=== PATIENT | female | born 1940 | race Caucasian/White ===

== ENCOUNTER 2018-12-27 09:24 | Emergency (ER) | payer MEDICARE, BC, SELFPAY ==
[2018-08-31 10:01] VITALS: BMI 33.4
[2018-12-27] VITALS (12 sets, daily range): BP systolic 134–150; BP diastolic 62–83; PULSE 76–91; RESP 16–19; TEMP 36.5; O2SAT 93–99; BMI 32.6
--- NOTE | 2018-12-27 09:39 | EKG12_ITS ---
Test Reason : NEURO Blood Pressure : / mmHG Vent. Rate : 091 BPM Atrial Rate : 087 BPM P-R Int : 000 ms QRS Dur : 170 ms QT Int : 460 ms P-R-T Axes : 000 270 082 degrees QTc Int : 565 ms Ventricular-paced rhythm Abnormal ECG Confirmed by LANEY MORRISON, ELIZABET ([id number]), marketing editor OBDULIA GARCIA ([id number]) on 12/29/2018 12:06:13 PM Referred By: VITALY Confirmed By:ELIZABET DAVISON MD
--- NOTE | 2018-12-27 09:39 | CT_ITS ---
STUDY: CT BRAIN WITHOUT CONTRAST REASON FOR EXAM: Female, 78 years old. Left-sided numbness and pain for 4 days. Hypertension. RADIATION DOSAGE (If Supplied By Facility): CTDIvol = ( 44.99 ) mGy, DLP = ( 796.11 ) mGycm TECHNIQUE: Transaxial CT imaging of the brain was performed without administration of intravenous contrast material. Individualized dose optimization techniques were used for this CT. COMPARISON: No relevant priors. FINDINGS: Normal soft tissue structures. Normal calvarium. There is mild cerebral atrophy with widening of the extra-axial spaces and ventricular dilatation. There are areas of decreased attenuation within the white matter tracts of the supratentorial brain, consistent with microvascular disease changes. Normal basal ganglia and thalami. Normal brainstem. Normal cerebellum. There is no intracranial hemorrhage. There are no findings of an acute ischemic infarction. Atherosclerotic calcification of the vertebral arteries and cavernous portions of the internal carotid arteries bilaterally. Mucosal thickening at the base of the right maxillary sinus. CT/Brain/Head without Contrast IMPRESSION: Chronic involutional changes of the brain. Electronically Signed: Bello Lozoya, at 10:40 EDT , Service support ,
--- NOTE | 2018-12-27 09:41 | RAD_ITS ---
STUDY: X-RAY CHEST REASON FOR EXAM: Female, 78 years old. Numbness. TECHNIQUE: Single AP portable view of the chest. COMPARISON: Comparison is made with prior study dated March 27, 2016. FINDINGS: The lungs are clear and expanded. There is no demonstrated pleural abnormality. There is borderline cardiomegaly. A left-sided dual-chamber pacemaker is seen. Normal mediastinum and radha. Normal visualized pulmonary arteries. There is atherosclerotic calcification of the aortic arch with tortuosity. Normal visualized thoracic spine. Findings suggestive of a calcific tendinitis of the left shoulder. There is no demonstrated abnormality of the visualized soft tissue structures of the upper abdomen. RAD/Chest 1 View IMPRESSION: Borderline cardiomegaly. The lungs are clear. Electronically Signed: Bello Lozoya, at 10:20 EDT , Service support ,
[2018-12-27 10:06] LABS: Absolute Neutrophil Count 3.9 X10^3/uL (2.0-7.7); Basophil# 0.03 X10^3/uL; Basophil% 0.5 % (0-1); Eosinophil# 0.14 X10^3/uL; Eosinophils% 2.4 % (0-5); Hematocrit 40.2 % (37-47); Hemoglobin 13.7 g/dl (12.0-15.0); Lymphocyte % 23.9 % (19-41); Mean Corp Hgb Conc 34.1 g/gl (32-36); Mean Corpuscular Hgb 31.4 pg (27.0-32.0); Mean Corpuscular Volume 92.2 fL (81-99); Mean Platelet Vol. 10.3 fl (6.2-12.0); Monocyte% 6.8 % (0-10); Neutrophil # 3.89 X10^3/uL (2.7-7.7); Neutrophil % 66.2 % (47-70); Platelet Count 253 K/mm3 (150-450); RBC Distribution Width CV 13.3 % (11.6-14.6); RBC Distribution Width SD 44.7 fl (35.1-43.9); Red Blood Count 4.36 M/mm3 (4.2-5.4); White Blood Count 5.9 K/mm3 (4.4-11.0)
[2018-12-27 10:07] LABS: POSITIVE COUNT NO; POSITIVE DIFFERENTIAL NO; POSITIVE MORPHOLOGY NO
[2018-12-27 10:16] LABS: Partial Thromboplast Time 54.5 Seconds (24.1-36.2)
[2018-12-27 10:20] LABS: Bedside Glucose 213 mg/dL (70-110)
[2018-12-27 10:22] LABS: Anion Gap 10 (5-15); BUN 18 mg/dL (7-18); BUN/Creat Ratio 13.6 RATIO (10-20); Calcium,Total 9.3 mg/dL (8.5-10.1); Chloride 104 mmol/L (98-107); Creatinine, Serum 1.32 mg/dL (0.55-1.02); EST Glomerular Filtration Rate 41 mL/min (>60); Est Glom Filt Rate - Afr Amer 50 mL/min (>60); Estimated Creatinine Clearance 34.86 ml/min; Glucose 211 mg/dL (74-106); Potassium 3.4 mmol/L (3.5-5.1); Sodium Level 139 mmol/L (136-145)
--- NOTE | 2018-12-27 11:28 | CT_ITS ---
STUDY: CT BRAIN WITH AND WITHOUT CONTRAST REASON FOR EXAM: Female, 78 years old. Numbness to the left side of the cervical region. RADIATION DOSAGE (If Supplied By Facility): CTDIvol = ( 32.81 ) mGy, DLP = ( 756.18 ) mGycm TECHNIQUE: Transaxial CT imaging of the brain was performed pre and post contrast administration. The examination was performed with intravenous administration of 100 IV Isovue 370. Individualized dose optimization techniques were used for this CT. COMPARISON: Comparison is made with prior unenhanced scan done earlier today. FINDINGS: Normal soft tissue structures. Normal calvarium. There is a 2.4 cm x 1.4 cm x 1.7 cm mildly enhancing soft tissue density along the anterior aspect of the left temporal frontal lobe. This abuts the posterior aspect of the orbital region of the left temporal bone. This may represent a meningioma. Mild degree of mass effect. There is mild cerebral atrophy with widening of the extra-axial spaces and ventricular dilatation. There are areas of decreased attenuation within the white matter tracts of the supratentorial brain, consistent with microvascular disease changes. Normal basal ganglia and thalami. Normal brainstem. Normal cerebellum. There is no intracranial hemorrhage. There are no findings of an acute ischemic infarction. Normal visualized paranasal sinuses. CT/CTA Head W/WO Contrast IMPRESSION: 2.4 cm x 1.4 cm x 1.7 cm mild enhancing soft tissue density along the anterior aspect of the left frontal temporal lobe as described. A meningioma should be ruled out. Electronically Signed: Bello Lozoya, at 12:46 EDT , Service support ,
--- NOTE | 2018-12-27 11:28 | CT_ITS ---
STUDY: CTA NECK WITH CONTRAST REASON FOR EXAM: Female, 78 years old. Left-sided cervical and shoulder pain. RADIATION DOSAGE (If Supplied By Facility): CTDIvol = ( 32.81 ) mGy, DLP = ( 756.18 ) mGycm TECHNIQUE: CT angiography with multi-detector data acquisition was performed from the aortic arch to the skull base following intravenous administration of 100 IV Isovue 370. MIP images were reconstructed from the axial data set. Post-processing of the angiographic images was performed, with multiplanar reformation and 3D reconstruction. Individualized dose optimization techniques were used for this CT. COMPARISON: None. FINDINGS: AORTIC ARCH: There is atherosclerotic calcific plaque formation of the aortic arch and great vessels arising from the aortic arch, without a hemodynamically significant stenosis. There is a normal origin of the brachiocephalic, left common carotid, and left subclavian arteries. RIGHT CAROTID ARTERIES: Normal right common carotid artery (CCA). Normal right common carotid bulb. There is moderate atherosclerotic plaque formation of the origin of the right internal carotid artery with an estimated stenosis of 50-69% stenosis. Normal visualized cervical portion of the right internal carotid artery. Normal origin of the right external carotid artery (ECA). LEFT CAROTID ARTERIES: Normal left common carotid artery (CCA). Normal left common carotid bulb. There is mild atherosclerotic plaque formation of the origin of the left internal carotid artery with less than 50% cross sectional diameter stenosis. Normal visualized cervical portion of the left internal carotid artery. Normal origin of the left external carotid artery (ECA). VERTEBRAL ARTERIES: Normal bilateral vertebral arteries. CT/CTA Neck W/WO Contrast IMPRESSION: Calcified plaques at the origin of the right internal carotid artery causing approximately 50-69% stenosis. Electronically Signed: Bello Lozoya, at 12:41 EDT , Service support ,
--- NOTE | 2018-12-27 12:18 | ED.VISSUMM ---
- ER Visit Summary Date of Service: 12/27/18 Chief Complaint: Numbness History of Present Illness: The patient is a 78 F with numbness that started 3 days ago. The numbness is in her left face, left neck, and left shoulder. It feels like a shot of Novocain. Patient denies any weakness. Denies any vision changes or facial droop. Denies any speech changes. Denies any history of this in the past. She was concerned for a nerve problem. She called her primary care's office and was referred to the ED. Patient has a history of atrial fibrillation and takes rivaroxaban. She also has a history of coronary disease, hypertension, hyperlipidemia. Physical Examination: Afebrile and vital signs are unremarkable. Head and neck normal to inspection. She does have decreased sensation over her left cheek, left neck, and left shoulder. Heart regular. Lungs clear. Extremities otherwise unremarkable. Good strength and sensation. No facial droop noted. Eyes normal. NIH stroke scale is 1. Test Results: EKG showed a paced rhythm at a rate of 91. Chest x-ray showed borderline cardiomegaly. Noncontrast CT showed chronic changes. CBC unremarkable. BMP, coags, troponin unremarkable. Emergency Department Course and Treatment: Patient had focal sensory loss in the C3 distribution. No motor symptoms or other associated symptoms. Work-up as above was unremarkable. Patient was discussed with Dr. Du. He advised CTA head and neck. If negative, the patient may be discharged for outpatient follow-up. CTA showed mild left carotid stenosis and moderate right-sided carotid stenosis. She also had a 2.4 cm left side frontal temporal lesion concerning for meningioma. This was discussed with Dr. Welsh. He said this would not cause her symptoms and is unlikely to be operative. He advised that the patient can follow-up with him if she wants. Patient declined. Patient was advised that she does have carotid stenosis and is at risk for stroke. She will return for any new or worsening issues. Otherwise follow-up with primary care. Treatment Plan: As above Disposition: Discharge Impression: 1. Left face numbness 2. Carotid stenosis bilaterally This note was generated with InStaffation software. It may contain incorrect words, spelling, and punctuation that were not noted in review of the chart prior to signing ED Disposition - Plan for ED Patient: Referrals: Matt Rocha MD [Primary Care Provider] -
--- NOTE | 2018-12-27 12:22 | ED.DCSUM_ITS ---
- ER Visit Summary Date of Service: 12/27/18 Chief Complaint: Numbness History of Present Illness: The patient is a 78 F with numbness that started 3 days ago. The numbness is in her left face, left neck, and left shoulder. It feels like a shot of Novocain. Patient denies any weakness. Denies any visi on changes or facial droop. Denies any speech changes. Denies any history of this in the past. She was concerned for a nerve problem. She called her primary care's office and was referred to the ED. Patient has a history of atrial fibrillation and takes rivaroxaban. She also has a history of coronary disease, hypertension, hyperlipidemia. Physical Examination: Afebrile and vital signs are unremarkable. Head and neck normal to inspection. She does have decreased sensation over her left cheek, left neck, and left shoulder. Heart regular. Lungs clear. Extremities otherwise unremarkable. Good strength and sensation. No facial droop noted. Eyes normal. NIH stroke scale is 1. Test Results: EKG showed a paced rhythm at a rate of 91. Chest x-ray showed borderline cardiomegaly. Noncontrast CT showed chronic changes. CBC unremarkable. BMP, coags, troponin unremarkable. Emergency Department Course and Treatment: Patient had focal sensory loss in the C3 distribution. No motor symptoms or other associated symptoms. Work-up as above was unremarkable. Patient was discussed with Dr. Du. He advised CTA head and neck. If negative, the patient may be discharged for outpatient follow-up. CTA showed mild left carotid stenosis and moderate right-sided carotid stenosis. She also had a 2.4 cm left side frontal temporal lesion concerning for meningioma. This was discussed with Dr. Welsh. He said this would not cause her symptoms and is unlikely to be operative. He advised that the patient can follow-up with him if she wants. Patient declined. Patient was advised that she does have carotid stenosis and is at risk for stroke. She will return for any new or worsening issues. Otherwise follow-up with primary care. Treatment Plan: As above Disposition: Discharge Impression: 1. Left face numbness 2. Carotid stenosis bilaterally This note was generated with Wako[employer] software. It may contain incorrect words, spelling, and punctuation that were not noted in review of the chart prior to signing ED Disposition - Plan for ED Patient: Referrals: Matt Rocha MD [Primary Care Provider] -
--- NOTE | 2018-12-27 14:00 | ED.DEP ---
ED Disposition - Plan for ED Patient: Instructions: ED Paraesthesias Referrals: Matt Rocha MD [Primary Care Provider] -
== END 2018-12-27 14:12 | disposition home or self-care (01) ==
LOC: ED 10:14
PROVIDERS: Emergency Provider Emergency Medicine; Family Provider Family Medicine; PCP Family Medicine
DX: R20.0 Anesthesia of skin (principal); I65.23 Occlusion and stenosis of bilateral carotid arteries; R11.0 Nausea; R29.701 NIHSS score 1; I25.10 Atherosclerotic heart disease of native coronary artery without angina pectoris; I10 Essential (primary) hypertension; E78.00 Pure hypercholesterolemia, unspecified; I27.20 Pulmonary hypertension, unspecified; I48.91 Unspecified atrial fibrillation; Z79.899 Other long term (current) drug therapy; Z95.5 Presence of coronary angioplasty implant and graft
CPT/HCPCS: 70450; 70496; 70498; 71045; 80048; 82962; 84484; 85025; 85610; 85730; 93005; 99284; Q9967; A4216

== ENCOUNTER 2019-01-18 12:48 | Emergency (ER) | payer MEDICARE, BC, SELFPAY ==
[2018-12-27 09:25] VITALS: BMI 32.6
[2019-01-18 12:49] VITALS: BP 129/61; PULSE 91; RESP 17; TEMP 36.4; O2SAT 97; BMI 31.9
--- NOTE | 2019-01-18 12:52 | RAD_ITS ---
STUDY: X-RAY - THORACIC SPINE REASON FOR EXAM: Female, 78 years old. Back pain following a fall. TECHNIQUE: 3 view(s) of the thoracic spine were obtained. COMPARISON: None. FINDINGS: Normal kyphosis of the thoracic spine. There is no substantial scoliosis. Normal thoracic vertebrae and endplates. There is multilevel disc space narrowing of the thoracic spine. The soft tissue structures are unremarkable. RAD/Thoracic Spine 3 Views IMPRESSION: Multilevel disc space narrowing. No compression fracture is seen. Electronically Signed: Bello Lozoya, at 14:00 EDT , Service support ,
--- NOTE | 2019-01-18 13:05 | RAD_ITS ---
STUDY: X-RAY - LUMBAR SPINE REASON FOR EXAM: Female, 78 years old. Low back pain following a fall. TECHNIQUE: 3 view(s) of the lumbar spine were obtained. COMPARISON: None FINDINGS: Normal lumbar lordosis. There is no substantial scoliosis. Grade 1 anterior listhesis of L4 on L5 without spondylolysis. Facet joint osteoarthritis. Mild loss of height of the superior endplate of the T12 vertebrae. Mild degree of disc space narrowing at the L4-L5 and L5-S1 levels. There is atherosclerotic calcification of the abdominal aorta without a demonstrated aneurysm. RAD/Lumbar Spine 2 or 3 Views IMPRESSION: Degenerative changes of the spine, as detailed above. Loss of height of the superior endplate of the T12 vertebrae. Grade 1 anterior listhesis of L4 on L5. Electronically Signed: Bello Lozoya, at 14:01 EDT , Service support ,
[2019-01-18] MEDS: oxyCODONE 5 MG Tablet PO (14:56)
--- NOTE | 2019-01-18 15:01 | CT_ITS ---
STUDY: CT ABDOMEN AND PELVIS WITHOUT CONTRAST REASON FOR EXAM: Female, 78 years old. Mid back pain following a recent fall. RADIATION DOSAGE (If Supplied By Facility): CTDIvol = ( 14.28 ) mGy, DLP = ( 732.60 ) mGycm TECHNIQUE: Transaxial images were obtained from the dome of the diaphragm to the symphysis pubis without oral contrast, and without intravenous contrast. Sagittal and coronal images were reconstructed. Individualized dose optimization techniques were used for this CT. COMPARISON: Comparison is made with prior study dated October 20, 2015. FINDINGS: The visualized lung bases are unremarkable. A dual-chamber pacemaker is seen. Coronary artery calcification. Mild degree of bibasilar scarring. Normal liver. Normal gallbladder and extrahepatic biliary system. Normal spleen. Normal pancreas. Normal bilateral adrenal glands. Normal right kidney. Normal left kidney. Normal visualized stomach. Normal small intestine. There are multiple colonic diverticula consistent with diverticulosis. The patient is status post appendectomy. There is diffuse atherosclerotic calcification of the abdominal aorta and its major visceral branches, without a demonstrated aneurysm. Normal inferior vena cava. There is borderline retroperitoneal lymphadenopathy with enlarged nodes no greater than 10mm in the short axis diameter. Normal urinary bladder. Small bilateral inguinal lymph nodes. There is absence of the uterus consistent with a prior hysterectomy. Normal abdominal wall. Grade 1 anterior listhesis of L4 on L5 without spondylolysis. Minimal loss of right of the superior endplate of the T12 vertebrae. This is new as compared to prior study. Stable diffuse posterior disc bulge at the L4-L5 level. CT/Abdomen/Pelvis without Cont IMPRESSION: Stable examination except for loss of height of the T12 vertebrae. Electronically Signed: Bello Lozoya, at 15:37 EDT , Service support ,
[2019-01-18] MEDS: diazePAM 2 MG Tablet PO (15:05)
--- NOTE | 2019-01-18 15:35 | ED.VISSUMM ---
- ER Visit Summary Date of Service: 01/18/19 Chief Complaint: Back pain History of Present Illness: The patient is a 78 F who is on blood thinners. She fell on some steps yesterday. Resulted in hematoma of the left posterior lateral thigh. She also notes bilateral forearm abrasions and contusions. She states it really brought her in today with severe pain in her low back. She states it feels like muscle spasms. Is worsened by movement. No syncope. No head injury. No chest or abdominal symptoms. No lower extremity weakness or paresthesias. No bowel or bladder dysfunction. Physical Examination: Afebrile vital signs stable Gen: Well-nourished well-developed Head: Normocephalic atraumatic Eyes: Perrl EOMI ENT: TMs clear no rhinorrhea moist mucous membranes Neck: Supple no lymphadenopathy no JVD nontender CVS: Regular rate rhythm no murmurs normal S1-S2 Respiratory: No distress clear to auscultation bilaterally chest nontender Abdomen: Soft nontender nondistended normal bowel sounds no masses Back: Paraspinal musculature tenderness the lower lumbar spine. Extremity: There is a hematoma to the left anterior lateral thigh. There are bilateral forearm abrasions and contusions. Skin: Normal color no rash Neuro: alert orientated ?3 CN II-XII intact normal strength sensation reflexes Palgic gait with cane Psych: Normal affect normal mood Test Results: Thoracic and lumbar spine films were obtained through nursing protocol in triage. This demonstrated L4-L5 spondylolisthesis. There is also some mild loss of height of the superior endplate of T12. CT of the abdomen pelvis was obtained which does not demonstrate any additional findings or evidence of retroperitoneal hematoma Emergency Department Course and Treatment: She received oxycodone and Valium. I will write for the same at home. I will asked that she follow-up with her doctor the next few days. Patient was advised on this creasing the medicine or stopping it if she becomes confused, constipated, or shows evidence of respiratory depression. Impression: 1. Lumbar muscle strain 2. Superior endplate compression fracture age-indeterminate 3. Left thigh hematoma This note was generated with [employer] dictation software. It may contain incorrect words, spelling, and punctuation that were not noted in review of the chart prior to signing ED Disposition - Plan for ED Patient: Disposition: Home or Assisted Living Instructions: Back Sprain/Strain Prescriptions: Oxycodone [Oxyir] 5 mg PO Q6H PRN PRN 3 Days #12 tab PRN Reason: Pain Prescription Printed Diazepam [Valium] 5 mg PO Q8 PRN 3 Days #10 tab PRN Reason: Muscle Spasm Prescription Printed Referrals: Matt Rocha MD [Primary Care Provider] - 3-5 Days
== END 2019-01-18 16:04 | disposition home or self-care (01) ==
PROVIDERS: Emergency Provider Emergency Medicine; Family Provider Family Medicine; PCP Family Medicine
DX: S39.012A Strain of muscle, fascia and tendon of lower back, initial encounter (principal); S70.12XA Contusion of left thigh, initial encounter; S50.812A Abrasion of left forearm, initial encounter; S50.811A Abrasion of right forearm, initial encounter; S50.12XA Contusion of left forearm, initial encounter; S50.11XA Contusion of right forearm, initial encounter; M43.16 Spondylolisthesis, lumbar region; E66.9 Obesity, unspecified; W10.9XXA Fall (on) (from) unspecified stairs and steps, initial encounter; Y93.9 Activity, unspecified; Y92.9 Unspecified place or not applicable; I25.10 Atherosclerotic heart disease of native coronary artery without angina pectoris; K21.9 Gastro-esophageal reflux disease without esophagitis; I10 Essential (primary) hypertension; E78.00 Pure hypercholesterolemia, unspecified; I48.91 Unspecified atrial fibrillation; F41.9 Anxiety disorder, unspecified; Z95.0 Presence of cardiac pacemaker; Z79.01 Long term (current) use of anticoagulants; Z79.899 Other long term (current) drug therapy; Z87.891 Personal history of nicotine dependence
CPT/HCPCS: 72072; 72100; 74176; 99283

== ENCOUNTER 2019-01-22 08:59 | Emergency (ER) | payer MEDICARE, BC, SELFPAY ==
[2019-01-22 09:00] VITALS: BP 139/61; PULSE 90; RESP 18; TEMP 36.6; O2SAT 97; BMI 31.9
--- NOTE | 2019-01-22 09:19 | ED.VIS.GEN ---
History of Present Illness Chief Complaint: Back Informant: Patient Current Severity: Moderate Maximum Severity: Moderate Narrative: Patient sustained a mechanical fall, she was seen in the emergency department, she was given analgesia but these ran out. She was supposed to have a appointment today, but apparently she got a phone call and was told that she would not be prescribed analgesia so she came to the emergency department. No chest pain shortness of breath fever or chills no new injury. Past Medical History - Allergies and Home Meds Allergies/Adverse Reactions: Allergies poison fany extract [Poison Fany Extract] Allergy (Verified 01/22/19 09:02) Rash Sulfa (Sulfonamide Antibiotics) Allergy (Verified 01/22/19 09:02) Hives Primary Care Physician: Matt Rocha MD [Primary Care Provider] - Past Medical History: - - Reviewed, significant for recent fall otherwise unremarkable. Surgical History: angioplasty Smoking Status: Former smoker Review of Systems Cardiovascular: Denies: Chest pain Respiratory: Denies: Dyspnea Gastrointestinal: Denies: Abdominal pain Musculoskeletal: Reports: Myalgias, Back pain Skin: Reports: Abrasions, Wounds Neurological: Denies: Headache, Weakness Hematologic: Denies: Easy bruising Physical Exam Vital Signs/Narrative: Vital Signs Temp Pulse Resp BP Pulse Ox 01/22/19 09:00 97.9 F 90 18 139/61 H 97 General: - - She appears in some pain Head: Normocephalic, Atraumatic ENT: Moist mucous membranes Cardiovascular: Regular rate Respiratory: No distress Abdomen: Soft, Nontender Back: - - Patient has mostly paraspinal tenderness, mostly on the left side, she has no spinal tenderness. Extremities: - - There is significant left lower extremity contusion and hematoma on her thigh Neurological: Normal Strength, Normal Sensation Diagnostic/Tx/Re-eval - Medical Decision Making Patient has a normal neurological exam, she obviously has pain and contusions I will give her analgesia and muscle relaxants for home. ED Disposition - Plan for ED Patient: Disposition: Home or Assisted Living Instructions: Back Sprain/Strain, BACK PAIN (Acute or Chronic) Prescriptions: Oxycodone HCl/Acetaminophen [Percocet 5/325] 1 tab PO Q6H PRN PRN 3 Days #12 tab PRN Reason: Pain Prescription Printed Diazepam [Valium] 10 mg PO Q8 PRN #10 tab PRN Reason: Muscle Spasm Prescription Printed Referrals: Matt Rocha MD [Primary Care Provider] -
[2019-01-22] MEDS: oxyCODONE 5 MG Tablet PO (09:36)
[2019-01-22] MEDS: diazePAM 5 MG Tablet 10 MG PO (09:36)
[2019-01-22 09:38] VITALS: RESP 18
== END 2019-01-22 10:16 | disposition home or self-care (01) ==
LOC: ED 09:56
PROVIDERS: Emergency Provider Emergency Medicine; Family Provider Family Medicine; PCP Family Medicine
DX: M54.9 Dorsalgia, unspecified (principal); S80.12XA Contusion of left lower leg, initial encounter; S70.12XA Contusion of left thigh, initial encounter; W19.XXXA Unspecified fall, initial encounter; Y93.9 Activity, unspecified; Y92.9 Unspecified place or not applicable; Z87.891 Personal history of nicotine dependence
CPT/HCPCS: 99283

== ENCOUNTER 2019-01-24 13:05 | Emergency (ER) | payer MEDICARE, BC, SELFPAY ==
[2019-01-24 13:06] VITALS: BP 144/76; PULSE 91; RESP 24; TEMP 35.8; O2SAT 95; BMI 31.9
--- NOTE | 2019-01-24 13:35 | ED.VIS.GEN ---
History of Present Illness Chief Complaint: Back Informant: Patient Current Severity: Moderate Maximum Severity: Moderate Narrative: Patient sustained a mechanical fall, she was seen in the emergency department, she was given analgesia but these ran out. After that she was seen by me a few days ago, she ran out of medications again. She does not have an appointment until Thursday. Her pain is left-sided paraspinal back pain. It is moderate she has muscle spasm with this. No chest pain shortness of breath fever or chills no new injury. Past Medical History - Allergies and Home Meds Allergies/Adverse Reactions: Allergies poison fany extract [Poison Fany Extract] Allergy (Verified 01/24/19 13:06) Rash Sulfa (Sulfonamide Antibiotics) Allergy (Verified 01/24/19 13:06) Hives Primary Care Physician: Matt Rocha MD [Primary Care Provider] - Prior records reviewed: No Past Medical History: - - Reviewed and unremarkable Surgical History: angioplasty Lives: Spouse/ Significant Other Smoking Status: Former smoker Review of Systems All systems negative except as indicated General: Denies: Fever Cardiovascular: Denies: Chest pain Respiratory: Denies: Dyspnea Gastrointestinal: Denies: Abdominal pain, Nausea Genitourinary: Denies: Dysuria, Hematuria Musculoskeletal: Reports: Myalgias, Back pain Skin: Denies: Abscess, Abrasions Neurological: Denies: Weakness Hematologic: Denies: Easy bruising Physical Exam Vital Signs/Narrative: Vital Signs Temp Pulse Resp BP Pulse Ox 01/24/19 13:06 96.5 F L 91 24 H 144/76 H 95 General: Well nourished, Well developed Eyes: Perrl, EOMI ENT: Moist mucous membranes Cardiovascular: Regular rate, Regular rhythm Respiratory: No distress Abdomen: Soft, Nontender Back: - - Mostly paraspinal tenderness some lumbar tenderness. She has normal dorsiflexion of both feet and great toes, normal plantarflexion. She has 1+ equal bilateral patellar reflexes. Extremities: No edema Skin: Normal color Neurological: Alert, Oriented x3, Normal Strength Psychological: Normal affect Diagnostic/Tx/Re-eval - Medical Decision Making Patient does not want any rehab, admission to the hospital she just wants analgesia, she told me what ever I gave her last time worked just fine. She denies any urinary symptoms, any red flags. She wants to be discharged home and follow-up on Thursday. Discharge stable condition ED Disposition - Plan for ED Patient: Disposition: Home or Assisted Living Diagnosis: Back pain Instructions: Back Sprain/Strain Prescriptions: Oxycodone HCl/Acetaminophen [Percocet 10-325 mg Tablet] 1 tab PO Q6H PRN PRN 3 Days #9 tab PRN Reason: Pain Prescription Printed Diazepam [Valium] 5 mg PO BID 3 Days #6 tab Prescription Printed Referrals: Matt Rocha MD [Primary Care Provider] - 2 Days
[2019-01-24] MEDS: HYDROmorphone 1 MG/ML Syringe IM (13:42)
[2019-01-24] MEDS: diazePAM 5 MG Tablet PO (13:42)
--- NOTE | 2019-01-24 13:58 | ED.RN ---
PT FAMILY REQUEST SOCIAL WORK CONSULT FOR INTRACTABLE BACK PAIN POST FALL AT HOME ONE WEEK AGO. PT HAS BEEN TO ED MULTIPLE TIMES SINCE FALL. FAMILY IS HAVING INCREASED DIFFICULTY TAKING CARE OF PT AT HOME DUE TO INCREASED DIFFICULTY OF PT AMBULATING AT HOME. TEE BOONE WAS VERBALLY CONSULTING AND INFORMED OF PT SITUATION. TEE TO SEE PT IN ED PRIOR TO DC.
--- NOTE | 2019-01-24 14:10 | CM.ED ---
Social Work Assessment Referral Date: 01/24/19 Date of Assessment: 01/24/19 Informant: NURSEMAINE Reason for Consult: D/C PLANNING-NH PLACEMENT Information obtained from: NURSE, PATIENT AND FAMILY Living Arrangements: PATIENT LIVES HOME WITH Employment/Financial: RETIRED Supports: DAUGHTER AND Social/Family Stressors: PATIENT HAD RECENT FALL AND HAS BEEN DEALING WITH PAIN EVER SINCE THE FALL. PATIENT HAS BEEN IN AND OUT OF THE ED 3 TIMES THIS MONTH. PATIENT AND FAMILY WANTING ALF PLACEMENT. Mental Health History: PATIENT ADMITS TO HX OF ANXIETY. Diagnoses: ANXIETY Medications: BUSPAR Substance Abuse History: PATIENT DENIES HX OF SUBSTANCE ABUSE. Interventions: SOCIAL SERVICE ASSESSMENT ALF PLACEMENT-SELF PAY Assessment: PATIENT IS A 78 Y/O FEMALE WHO PRESENTS TO THE ED FOR BACK PAIN. PATIENT NOT DOING WELL AT HOME AND UNABLE TO CARE FOR PATIENT. FAMILY AND PATIENT WANTING ALF PLACEMENT. DISCUSSED OPTIONS AND THAT PLACEMENT WILL BE SELF PAY. ALL VERBALIZE UNDERSTANDING. FIRST CHOICE IS [facility], SECOND IS [facility]. UPDATED NURSING AND DR. YARBROUGH ON ASSESSMENT. THIS WORKER TO ASSIST WITH PLACEMENT. PLAN: ALF. REFERRALS TO BE MADE.
--- NOTE | 2019-01-24 14:20 | CM.ED ---
SOCIAL WORK CALL TO DR. COSTELLO'S OFFICE TO OBTAIN HISTORY AND PHYSICAL. NURSE TO FAX H&P TO THIS WORKER. SHARLENE TINEO, MANNEQUIN MOUNTER, BEHAVIOR THERAPIST.
--- NOTE | 2019-01-24 14:45 | CM.ED ---
SOCIAL WORK MADE CALLS TO [facility] AND [facility]. UPDATED PATIENT AND FAMILY. PATIENT WANTING THE [facility]. REFERRAL FAXED TO THE [facility] AT THIS TIME.
--- NOTE | 2019-01-24 15:15 | CM.ED ---
SOCIAL WORK CALL FROM SHIRA AT THE [facility]. PATIENT ACCEPTED. PAS SUBMITTED. UPDATED PATIENT, FAMILY AND NURSING. FAMILY TO TRANSPORT PATIENT TO FACILITY. SHARLENE TINEO, OTR OWNER OPERATOR, CEMETERY KEEPER.
--- NOTE | 2019-01-24 15:29 | ED.RN ---
PT WAS ACCEPTED TO [facility], PT WAS D/C'D FROM ER AND TAKEN TO THE AVENUE BY DAUGHTER AND
== END 2019-01-24 15:31 | disposition home or self-care (01) ==
PROVIDERS: Emergency Provider Emergency Medicine; Family Provider Family Medicine; PCP Family Medicine
DX: M54.9 Dorsalgia, unspecified (principal); W19.XXXA Unspecified fall, initial encounter; Y93.9 Activity, unspecified; Y92.9 Unspecified place or not applicable; Z87.891 Personal history of nicotine dependence
CPT/HCPCS: 96372; 99282

== ENCOUNTER 2020-05-01 15:01 | Emergency (ER) | payer MEDICARE, BC, SELFPAY ==
[2019-11-15 11:10] VITALS: BMI 30.9
[2020-05-01 15:01] VITALS: BP 155/84; PULSE 89; RESP 16; TEMP 36.2; O2SAT 95; BMI 30.9
--- NOTE | 2020-05-01 15:53 | ED.VISSUMM ---
- ER Visit Summary Date of Service: 05/01/20 Chief Complaint: Fall History of Present Illness: The patient is a 79 F who presents with pain in her left lower chest that began after a fall 4 days ago. Patient states she tripped while she was walking in her basement and landed on her left side. Patient has been complaining of pain in her left lower ribs since the fall. Patient states her pain is sharp and is worse with movement. Patient denies any head injury or loss of consciousness. Physical Examination: Vital signs are stable. Patient is afebrile. Patient is in no acute distress. Musculoskeletal exam reveals tenderness over the left lower ribs. There is no bony crepitance or step-off. [place]uc[place] is pink and moist. Neck is supple. Trachea is midline. There is no JVD. Heart with regular rate and rhythm. Lungs are clear and equal bilaterally. There is adequate respiratory effort. Abdomen is soft. Bowel sounds are normal. There is no tenderness. There is no rebound or guarding noted. Cranial nerves II through XII are intact. There are no focal motor or sensory deficits noted. Test Results: X-rays of the left ribs were obtained. There is no acute fracture noted. These were interpreted by the radiologist and reviewed by myself. Emergency Department Course and Treatment: Patient was advised of her findings. Patient was given a dose of Alhambra here. Patient was instructed to use ice to the area. Patient was given a prescription for a short course of Alhambra. Patient was instructed to take 10-15 deep breaths every hour while awake to prevent atelectasis and pneumonia. Patient understood and was agreeable with the plan. All questions were answered. Disposition: Discharge home Impression: Left rib contusion This note was generated with [employer] dictation software. It may contain incorrect words, spelling, and punctuation that were not noted in review of the chart prior to signing ED Disposition - Plan for ED Patient: Disposition: Home or Assisted Living Diagnosis: Contusion of rib on left side Instructions: ED CONTUSION Rib Prescriptions: Hydrocodone Bitart/Apap 5-325 [Alhambra 5MG-325MG] 1 tab PO Q6H PRN PRN 3 Days #10 tab PRN Reason: Pain Prescription Printed Referrals: Matt Rocha MD [Primary Care Provider] - 5-7 Days
--- NOTE | 2020-05-01 16:00 | RAD_ITS ---
STUDY: X-RAY - UNILATERAL RIBS ( LEFT ) WITH CHEST REASON FOR EXAM: Female, 79 years old. PAIN BENEATH LEFT BREAST/LEFT RIBS ANTERIORLY RADIDIATING LATERALLY WELL. PT STATES SHE FELL ON THURSDAY AND INJURED HER LEFT RIBS. STATES IT ISN''T GETTING BETTER. TECHNIQUE - RIBS: 5 view(s) of the ribs. TECHNIQUE - CHEST: Single PA view of the chest. COMPARISON: 12/27/2018 FINDINGS - RIBS: Normal visualized ribs without a demonstrated fracture. FINDINGS - CHEST: Left subclavian dual-lead pacemaker which is unchanged. Some bibasilar discoid atelectasis. There is no demonstrated pleural abnormality. Normal size heart. Normal mediastinum and radha. Normal visualized pulmonary arteries. Normal visualized aortic arch and descending thoracic aorta. Normal visualized thoracic spine. Normal visualized ribs, clavicles, and shoulders. There is no demonstrated abnormality of the visualized soft tissue structures of the upper abdomen. RAD/Ribs Uni Min 3V w/PA Chest IMPRESSION: RIBS: Normal x-ray examination of the ribs. CHEST: Normal x-ray examination of the chest. Electronically Signed: Vishnu Coronado MD at 16:22 EDT Tel , Service support ,
[2020-05-01] MEDS: HYDROcodone Bitartrate/Apap 5/325 Tablet PO (16:40)
== END 2020-05-01 16:52 | disposition home or self-care (01) ==
LOC: ED 16:17
PROVIDERS: Emergency Provider Emergency Medicine; PCP Family Medicine
DX: S20.212A Contusion of left front wall of thorax, initial encounter (principal); W01.10XA Fall on same level from slipping, tripping and stumbling with subsequent striking against unspecified object, initial encounter; Y93.01 Activity, walking, marching and hiking; Y92.008 Other place in unspecified non-institutional (private) residence as the place of occurrence of the external cause; Y99.9 Unspecified external cause status; E66.9 Obesity, unspecified; I10 Essential (primary) hypertension; Z79.899 Other long term (current) drug therapy; Z95.0 Presence of cardiac pacemaker
CPT/HCPCS: 71101; 99283

== ENCOUNTER → 2020-05-16 15:07 | Outpatient (CLI) | payer MEDICARE, BC, SELFPAY ==
[2020-05-16 14:01] VITALS: BMI 31.7
[2020-05-16 16:11] LABS: AST(SGOT) 23 U/L (15-37); Alanine Aminotransfer ALT/SGPT 22 U/L (13-56); Albumin, Serum 3.8 g/dL (3.2-5.0); Alkaline Phosphatase 139 U/L (45-117); Bilirubin, Direct 0.12 mg/dL (0.00-0.30); Cholesterol 168 mg/dL (200); Globulin 5.2 g/dL (2.2-4.2); High Density Lipoprotein 40 mg/dL; Triglycerides 202 mg/dL; Very Low Density Lipoprotein 40 mg/dL (5-40)
== END ==
PROVIDERS: PCP Family Medicine; Referring Provider Physician Assistant Medical; Visit Provider Physician Assistant Medical
DX: I25.10 Atherosclerotic heart disease of native coronary artery without angina pectoris (principal); E78.00 Pure hypercholesterolemia, unspecified
CPT/HCPCS: 36415; 80061; 80076

== ENCOUNTER → 2022-02-13 | Outpatient (CLI) | payer MEDICARE, BC, SELFPAY ==
--- NOTE | 2022-02-13 17:45 | STRESSREP_ITS ---
Stress Test Report Pharmacologic myocardial perfusion stress test. 81-year-old lady with a history of coronary artery disease. Stress protocol: Resting EKG demonstrates normal pacemaker rhythm with a rate of 90 bpm. Left bundle branch block pattern is noted. Resting blood pressure is 140/80 mmHg. 0.4 mg of regadenoson was infused per usual protocol followed by Intravenous saline flush injection continuous EKG monitoring was performed. The maximum heart rate attained was 121 bpm which was 87% of max impacted heart rate the max imum workload was 1 metabolic equivalent. At rest there were no ST or T wave changes noted to suggest abnormal flow reserve and at peak infusion nonspecific ST changes were noted with did not meet the criteria for ischemia. The peak blood pressure was 142/80 mmHg. Myocardial perfusion protocol. 14.8 mCi of technetium 99m sestamibi was injected at rest. 0.4 mg of regadenoson was infused per usual protocol. At peak infusion 44.6 mCi of technetium 99m sestamibi was injected stress images were obtained stress and rest images were reconstructed in comparing the short axis vertical long and hor izontal long axis. Perfusion SPECT analysis: Review of the stress images demonstrate normal uptake of tracer noted in all areas of the myocardium. The resting images similarly demonstrate normal uptake of tracer noted in all areas of the myocardium. No areas of reversibility are noted suggest ischemia. Conclusion: Normal pharmacologic myocardial perfusion stress test.
== END | disposition home or self-care (01) ==
LOC: CVS 06:28
PROVIDERS: PCP Family Medicine; Referring Provider Physician Assistant Medical; Visit Provider Physician Assistant Medical
DX: I25.10 Atherosclerotic heart disease of native coronary artery without angina pectoris (principal); I44.7 Left bundle-branch block, unspecified; Z95.5 Presence of coronary angioplasty implant and graft
CPT/HCPCS: 78452; 93017; A9500; A4216; J2785

== ENCOUNTER 2022-08-15 12:36 | Emergency (ER) | payer MEDICARE, BC, SELFPAY ==
[2022-08-15 12:37] VITALS: BP 132/69; PULSE 90; RESP 18; TEMP 36.2; O2SAT 97; BMI 33.6
--- NOTE | 2022-08-15 13:01 | RAD_ITS ---
STUDY: X-RAY - THORACIC SPINE REASON FOR EXAM: Female, 82 years old. Back pain following a fall. TECHNIQUE: 3 view(s) of the thoracic spine were obtained. COMPARISON: Comparison is made with prior study dated 01/18/2019. FINDINGS: There is an increase in the normal thoracic kyphosis. There is no substantial scoliosis. There is demineralization of the thoracic spine. Most complete collapse of the T12 vertebrae with mild retropulsion of the fracture fragment. There is a mild degree of multilevel disc space narrowing of the thoracic spine. Calcification of the aortic arch. RAD/Thoracic Spine 3 Views IMPRESSION: Almost complete collapse of the T12 vertebrae with a mild degree of retropulsion of the fracture fragment. Electronically Signed: Bello Lozoya MD at 13:35 EST ,
--- NOTE | 2022-08-15 13:01 | EX.ED.DYSGE1 ---
HPI History of Present Illness Chief Complaint: Back Informant: patient Onset/Context/Timing Onset: Days (5 days) Context: Gradual Onset Current Severity: Moderate Maximum Severity: Moderate Worsened by: Movement Narrative Narrative: Patient presents secondary to back pain. She states she tripped over her cats 4 days ago and fell. She had increasing back pain since that time. She points to the mid back near her bra line. She found a couple leftover oxycodone from a prior injury and has been taking those this past week. She has not been seen for medical evaluation since her fall. [facility] Medical History Anxiety Atherosclerosis of coronary artery of [place] heart without angina pectoris Essential (primary) hypertension History of non-ST elevation myocardial infarction (NSTEMI) (2013) Hyperlipidemia Hypothyroidism Iron deficiency anemia Longstanding persistent atrial fibrillation Paroxysmal atrial fibrillation Paroxysmal atrial flutter Secondary pulmonary arterial hypertension Sick sinus syndrome Home Medications buspirone 15 mg tablet 15 mg PO BID 06/02/13 [History Last Taken Unknown] omeprazole 40 mg capsule,delayed release 40 mg PO DAILY 06/02/13 [History Last Taken 09/15/16 08:30] nitroglycerin 0.4 mg sublingual tablet 0.4 mg sublingual Q5M PRN Chest Pain 04/21/15 [History Last Taken Unknown] amitriptyline 25 mg tablet 25 mg PO QHS 04/02/17 [History Last Taken Unknown] levothyroxine 75 mcg tablet 75 mcg PO DAILY 04/02/17 [History Last Taken Unknown] acetaminophen 500 mg capsule 500 mg PO Q6H 03/15/19 [History Last Taken Unknown] diphenhydramine HCl 25 mg tablet (Allergy Relief (diphenhydramine)) 25 mg PO TID PRN 01/24/21 [History Last Taken Unknown] simvastatin 20 mg tablet See Rx Instructions .Route .COMPLEX #90 tabs 08/29/21 [Rx Last Taken Unknown] rivaroxaban 20 mg tablet (Xarelto) See Rx Instructions .Route .COMPLEX #90 tabs 10/09/21 [Rx Last Taken Unknown] amlodipine 10 mg tablet See Rx Instructions .Route .COMPLEX #90 tabs 12/05/21 [Rx Last Taken Unknown] hydrochlorothiazide 12.5 mg tablet See Rx Instructions .Route .COMPLEX #90 tabs 12/05/21 [Rx Last Taken Unknown] losartan 100 mg tablet See Rx Instructions .Route .COMPLEX #90 tabs 12/05/21 [Rx Last Taken Unknown] metoprolol succinate 25 mg tablet,extended release 24 hr See Rx Instructions .Route .COMPLEX #90 tabs 12/05/21 [Rx Last Taken Unknown] glimepiride 4 mg tablet 4 mg PO DAILY 01/24/22 [History Last Taken Unknown] oxycodone 5 mg tablet 5 mg PO Q8H PRN pain 6 days #20 tabs 08/15/22 [Rx Last Taken Unknown] Allergy/AdvReac Type Severity Reaction Status Date / Time poison fany extract Allergy Rash Verified 08/15/22 12:38 [Poison Fany Extract] Sulfa (Sulfonamide Allergy Hives Verified 08/15/22 12:38 Antibiotics) Family History Mother Cancer Father Cancer Brother CAD (coronary artery disease) Sister CAD (coronary artery disease) Surgical History History of appendectomy History of coronary artery stent placement (09/2010) History of hysterectomy History of left heart catheterization (10/09/13) History of tubal ligation Hx of atrioventricular node ablation (03/31/16) Presence of cardiac pacemaker (04/26/15) Social History Smoking Status: Former smoker alcohol intake: never caffeine: Yes Type: coffee Number of servings: 4 ROS ROS ED Constitutional Constitutional ED: Denies chills or fever(s) Eyes Eyes: Denies change in vision or discharge from eye(s) ENT ENT ED: Denies discharge from eye(s), rhinorrhea or sore throat Cardiovascular Cardiovascular: Denies chest pain or palpitations Respiratory/Chest Respiratory/Chest: Denies cough or dyspnea Gastrointestinal Gastrointestinal: Denies abdominal pain, diarrhea, nausea or vomiting Genitourinary Genitourinary ED: Denies difficulty urinating or dysuria Musculoskeletal Musculoskeletal: Reports back pain; Denies extremity pain Integumentary Denies Abrasions or rash Neurologic Neurologic: Denies headache(s) or weakness Psychiatric Psychiatric: Denies anxiety or depression Allergic/Immunologic Allergic/Immunologic ED: Denies lip swelling or urticaria EXAM Physical Exam Const Vital Signs: 08/15/22 12:37 Temperature 97.2 F L Temperature Source Temporal Pulse Rate 90 Respiratory Rate 18 Blood Pressure 132/69 H Blood Pressure Mean 90 Pulse Ox 97 Oxygen Delivery Method Room Air Positive well nourished and well developed General Appearance ED: well developed HEENT Reports normocephalic and head/scalp atraumatic Eyes PERRL and EOMs intact bilaterally Neck supple Chest Wall inspection of chest normal and palpation of chest normal Resp normal respiratory effort and clear to auscultation bilaterally Cardio regular rate and regular rhythm GI normal to inspection, nondistended, normoactive bowel sounds Palpation: soft Back/Spine Back/Spine Narrative: Mild tenderness in the bilateral paraspinals near the thoracolumbar junction. No abrasions or ecchymosis. Extremity normal to inspection Neuro oriented x3 and no sensory deficits noted Sensorium / Orientation: alert Motor Exam: strength 5/5 throughout Psych mental status grossly normal Skin no rashes or lesions noted MDM MDM MDM Narrative Medical decision making narrative: Patient is given oxycodone for pain. Thoracic and lumbar x-rays ordered. Radiography Diagnostic Testing: Clinical Impression(s) from Imaging Studies Thoracic Spine X-Ray 08/15/22 13:01 IMPRESSION: Almost complete collapse of the T12 vertebrae with a mild degree of retropulsion of the fracture fragment. Electronically Signed: Bello Lozoya MD at 13:35 EST , Lumbar Spine X-Ray 08/15/22 13:15 IMPRESSION: Almost complete collapse of the T12 vertebrae with mild retropulsion of the fracture fragment. Stable grade 1 anterolisthesis of L4 on L5. Mild degree of disc space narrowing at the L4-L5 level. Electronically Signed: Bello Lozoya MD at 13:37 EST , Thoracic Spine CT 08/15/22 14:04 IMPRESSION: Degenerative changes at multiple levels. Almost complete collapse of the T12 vertebra with retropulsion of the posterior fragment causing mild degree of central canal stenosis. Electronically Signed: Bello Lozoya MD at 14:32 EST , Treatment and Re-Evaluation Narrative: Thoracic spine x-rays reveal compression fracture of T12 per my interpretation. This is new when compared to prior studies of 2019. Lumbar spine x-rays are reviewed by myself and reveal arthritic chronic changes. Radiology interpretation is reviewed. Due to some posterior protrusion of the fragments, CT scan of the thoracic spine is obtained. CT confirms almost complete collapse of the T12 vertebrae with retropulsion of the posterior fragment causing a mild degree of central canal stenosis. I spoke with Dr. Zuleta. He will see the patient in the office on Thursday for follow-up. Patient be given oxycodone for pain. Return instructions given. Discharge Plan Triage Chief Complaint: Back ED Provider: Prema Degroot Dx/Rx/DC Orders Clinical Impression: Closed wedge compression fracture of T12 vertebra Instructions: Compression Fx Prescriptions: New oxycodone 5 mg tablet 5 mg PO Q8H PRN (Reason: pain) 6 Days Qty: 20 0RF No Action acetaminophen 500 mg capsule 500 mg PO Q6H diphenhydramine HCl [Allergy Relief(diphenhydramin)] 25 mg tablet 25 mg PO TID PRN glimepiride 4 mg tablet 4 mg PO DAILY omeprazole 40 MG capsule 40 mg PO DAILY Label Comments: acid reflux buspirone 15 MG tablet 15 mg PO BID Label Comments: depression nitroglycerin 0.4 MG tablet 0.4 mg SUBLINGUAL Q5M PRN (Reason: Chest Pain) levothyroxine 75 MCG tablet 75 mcg PO DAILY amitriptyline 25 MG tablet 25 mg PO QHS simvastatin 20 mg tablet See Rx Instructions .ROUTE .COMPLEX Qty: 90 3RF Dose Instruction: TAKE 1 TABLET AT BEDTIME Rx Instructions: TAKE 1 TABLET AT BEDTIME Xarelto 20 mg tablet See Rx Instructions .ROUTE .COMPLEX Qty: 90 3RF Dose Instruction: TAKE 1 TABLET DAILY Rx Instructions: TAKE 1 TABLET DAILY losartan 100 mg tablet See Rx Instructions .ROUTE .COMPLEX Qty: 90 3RF Dose Instruction: TAKE 1 TABLET DAILY Rx Instructions: TAKE 1 TABLET DAILY metoprolol succinate 25 mg tablet extended release 24 hr See Rx Instructions .ROUTE .COMPLEX Qty: 90 3RF Dose Instruction: TAKE 1 TABLET DAILY Rx Instructions: TAKE 1 TABLET DAILY amlodipine 10 mg tablet See Rx Instructions .ROUTE .COMPLEX Qty: 90 3RF Dose Instruction: TAKE 1 TABLET DAILY Rx Instructions: TAKE 1 TABLET DAILY hydrochlorothiazide 12.5 mg tablet See Rx Instructions .ROUTE .COMPLEX Qty: 90 3RF Dose Instruction: TAKE 1 TABLET DAILY Rx Instructions: TAKE 1 TABLET DAILY Primary Care Provider: Matt Rocha Referrals: Stepan Zuleta DO [Med Staff - Active Staff] - 3-5 Days Matt Rocha MD [Primary Care Provider] - Disposition Disposition: Home, Self Care
--- NOTE | 2022-08-15 13:15 | RAD_ITS ---
STUDY: X-RAY - LUMBAR SPINE REASON FOR EXAM: Female, 82 years old. Back pain following a fall. TECHNIQUE: 2 view(s) of the lumbar spine were obtained. COMPARISON: Comparison is made with prior study dated 01/18/2019. FINDINGS: There is an exaggerated lumbar lordosis. There is no substantial scoliosis. Grade 1 anterior listhesis of L4 on L5. This is unchanged. Normal vertebral bodies and endplates. Mild degree of disc space narrowing at the L4-L5 level. Almost complete collapse of the T12 vertebrae with mild retropulsion of the fracture fragment. There is atherosclerotic calcification of the abdominal aorta without a demonstrated aneurysm. RAD/Lumbar Spine 2 or 3 Views IMPRESSION: Almost complete collapse of the T12 vertebrae with mild retropulsion of the fracture fragment. Stable grade 1 anterolisthesis of L4 on L5. Mild degree of disc space narrowing at the L4-L5 level. Electronically Signed: Bello Lozoya MD at 13:37 EST ,
--- NOTE | 2022-08-15 14:04 | CT_ITS ---
STUDY: CT THORACIC SPINE WITHOUT CONTRAST REASON FOR EXAM: Female, 82 years old. T12 compression fx RADIATION DOSAGE (If Supplied By Facility): CTDIvol = ( 35.30 ) mGy, DLP = ( 1342.97 ) mGycm TECHNIQUE: The patient was scanned in a multi detector CT scanner. High resolution imaging was performed. Images were obtained from T1 to L1 vertebral level. Sagittal and coronal images were reconstructed. Individualized dose optimization techniques were used for this CT. COMPARISON: Comparison is made with prior radiographs done earlier today. FINDINGS: There is multilevel endplate spondylosis of the cervical spine. Normal kyphosis of the thoracic spine. There is no substantial scoliosis. There is multilevel endplate spondylosis of the thoracic spine. There is multilevel degenerative disc disease with loss of the disc space heights. There is almost complete collapse of the T12 vertebrae with mild retropulsion of the posterior fragment. This causes a mild degree of central canal stenosis. Atherosclerotic calcification of the descending thoracic aorta. CT/Spine Thoracic without Contras IMPRESSION: Degenerative changes at multiple levels. Almost complete collapse of the T12 vertebra with retropulsion of the posterior fragment causing mild degree of central canal stenosis. Electronically Signed: Bello Lozoya MD at 14:32 EST ,
[2022-08-15] MEDS: oxyCODONE 5 MG Tablet PO (14:05)
== END 2022-08-15 15:30 | disposition home or self-care (01) ==
PROVIDERS: Emergency Provider Emergency Medicine; PCP Family Medicine; Visit Provider Emergency Medicine
DX: S22.080A Wedge compression fracture of T11-T12 vertebra, initial encounter for closed fracture (principal); I10 Essential (primary) hypertension; Z87.891 Personal history of nicotine dependence; E78.5 Hyperlipidemia, unspecified; I25.10 Atherosclerotic heart disease of native coronary artery without angina pectoris; W01.0XXA Fall on same level from slipping, tripping and stumbling without subsequent striking against object, initial encounter
CPT/HCPCS: 72072; 72100; 72128; 99283

== ENCOUNTER 2022-12-04 13:54 | Emergency (ER) | payer MEDICARE, BC, SELFPAY ==
[2022-12-04 13:55] VITALS: BP 152/84; PULSE 90; RESP 18; TEMP 35.7; O2SAT 94; BMI 34.7
--- NOTE | 2022-12-04 14:27 | EKG12_ITS ---
Test Reason : Blood Pressure : / mmHG Vent. Rate : 090 BPM Atrial Rate : 093 BPM P-R Int : 000 ms QRS Dur : 178 ms QT Int : 454 ms P-R-T Axes : -28 -81 084 degrees QTc Int : 555 ms Ventricular-paced rhythm Abnormal ECG Confirmed by DICKSON TRACEY MD ([id number]), marketing editor MOISES LEW ([id number]) on 12/05/2022 1:28:18 PM Referred By: DAIN Confirmed By:DICKSON TRACEY MD
--- NOTE | 2022-12-04 14:28 | CT_ITS ---
STUDY: CT Abdomen And Pelvis W/ Contrast Injection 12/04/2022 3:56 PM REASON FOR EXAM: Female, 82 years old. Abdominal pain abdominal pain Individualized dose optimization techniques were used for this CT. COMPARISON: ctap 7.9.19. TECHNIQUE: CT Abdomen And Pelvis W/ Contrast Injection IV 100mL [id number] FINDINGS: There are atherosclerotic calcifications of visualized coronary arteries. The visualized portions of the heart are within normal limits. Normal liver. Normal gallbladder and extrahepatic biliary system. Normal spleen. Normal pancreas. Normal bilateral adrenal glands. No acute findings of the right kidney. No acute findings of the left kidney. Normal visualized stomach. Normal small intestine. Focal wall thickening and inflammation of the rectosigmoid colon suggesting a colitis. There is non-visualization of the appendix. There are calcifications of the abdominal aorta. This is consistent for atherosclerotic disease. There is NO abdominal aortic aneurysm. Vascular workup can be obtained based on clinical correlation. Normal inferior vena cava. Subcentimeter mesenteric lymph nodes. Normal urinary bladder. There is absence of the uterus consistent with a prior hysterectomy. There is a Grade 1 anterolisthesis of L4 on L5. There is an umbilical hernia containing fat. There are diffuse degenerative changes of the visualized lumbar spine. T12 vertebra plana deformity with a 5.4mm posterior displaced fragment. T12 is noted on the prior CT scan and The T12 finding is new since the prior CT scan. However, overall, these are age-indeterminate. MRI could further evaluate if of concern. CT/Abdomen/Pelvis W IV Cont ONLY IMPRESSION: (NOT LISTED IN ORDER OF SIGNIFICANCE) Focal wall thickening and inflammation of the rectosigmoid colon suggesting a colitis. T12 vertebra plana deformity with a 5.4mm posterior displaced fragment. T12 is noted on the prior CT scan and The T12 finding is new since the prior CT scan. However, overall, these are age-indeterminate. MRI could further evaluate if of concern. Other findings as above. Electronically Signed: Aravind David MD at 16:06 EDT ,
--- NOTE | 2022-12-04 14:48 | EX.ED.DYSGE1 ---
HPI <MODESTA Dawn - Last Filed: 12/04/22 18:36> History of Present Illness Chief Complaint: Abd Pain Narrative Narrative: Patient is an 82-year-old female with a past medical history of CAD, AR, on Eliquis for atrial fibrillation, hyperlipidemia who presents to the emergency department for lower abdominal pain that began at approximately 11 AM. Patient states she was baking bread when she developed lower abdominal pain like she had to go to the bathroom, sweatiness. She did get concerned because this is how she felt during her first AR in 2009. Patient also states over the last several weeks has had pain to the right upper quadrant. Patient denies any fever or chills however states she had rigors and could not stop shaking. Patient is unsure why she is breathing fast however she does not feel short of breath. She denies any sick contacts. She denies any chest pain or abdominal pain on arrival to the emergency department, she states that she did receive something in the squad for her pain. PFSH <MODESTA Dawn - Last Filed: 12/04/22 18:36> [facility] Medical History Anxiety Atherosclerosis of coronary artery of enterprise heart without angina pectoris Essential (primary) hypertension History of non-ST elevation myocardial infarction (NSTEMI) (2013) Hyperlipidemia Hypothyroidism Iron deficiency anemia Longstanding persistent atrial fibrillation Paroxysmal atrial fibrillation Paroxysmal atrial flutter Secondary pulmonary arterial hypertension Sick sinus syndrome Home Medications buspirone 15 mg tablet 15 mg PO BID 06/02/13 [History Last Taken Unknown] omeprazole 40 mg capsule,delayed release 40 mg PO DAILY 06/02/13 [History Last Taken 09/15/16 08:30] nitroglycerin 0.4 mg sublingual tablet 0.4 mg sublingual Q5M PRN Chest Pain 04/21/15 [History Last Taken Unknown] amitriptyline 25 mg tablet 25 mg PO QHS 04/02/17 [History Last Taken Unknown] levothyroxine 75 mcg tablet 75 mcg PO DAILY 04/02/17 [History Last Taken Unknown] acetaminophen 500 mg capsule 500 mg PO Q6H 03/15/19 [History Last Taken Unknown] diphenhydramine HCl 25 mg tablet (Allergy Relief (diphenhydramine)) 25 mg PO TID PRN 01/24/21 [History Last Taken Unknown] glimepiride 4 mg tablet 4 mg PO DAILY 01/24/22 [History Last Taken Unknown] oxycodone 5 mg tablet 5 mg PO Q8H PRN pain 6 days #20 tabs 08/15/22 [Rx Last Taken Unknown] simvastatin 20 mg tablet See Rx Instructions .Route .COMPLEX #90 tabs 08/25/22 [Rx Last Taken Unknown] rivaroxaban 20 mg tablet (Xarelto) See Rx Instructions .Route .COMPLEX #90 tabs 10/06/22 [Rx Last Taken Unknown] amlodipine 10 mg tablet See Rx Instructions .Route .COMPLEX #90 tabs 12/01/22 [Rx Last Taken Unknown] hydrochlorothiazide 12.5 mg tablet See Rx Instructions .Route .COMPLEX #90 tabs 12/01/22 [Rx Last Taken Unknown] losartan 100 mg tablet See Rx Instructions .Route .COMPLEX #90 tabs 12/01/22 [Rx Last Taken Unknown] metoprolol succinate 25 mg tablet,extended release 24 hr See Rx Instructions .Route .COMPLEX #90 tabs 12/01/22 [Rx Last Taken Unknown] ciprofloxacin HCl 500 mg tablet (Cipro) 500 mg PO BID #20 tabs 12/04/22 [Rx Last Taken Unknown] dicyclomine 20 mg tablet 20 mg PO BID #14 tabs 12/04/22 [Rx Last Taken Unknown] metronidazole 500 mg tablet 500 mg PO TID #30 tabs 12/04/22 [Rx Last Taken Unknown] ondansetron 4 mg disintegrating tablet 4 mg PO Q8H PRN PRN Nausea #10 tabs 12/04/22 [Rx Last Taken Unknown] Allergy/AdvReac Type Severity Reaction Status Date / Time poison fany extract Allergy Rash Verified 12/04/22 14:00 [Poison Fany Extract] Sulfa (Sulfonamide Allergy Hives Verified 12/04/22 14:00 Antibiotics) Family History Mother Cancer Father Cancer Brother CAD (coronary artery disease) Sister CAD (coronary artery disease) Surgical History History of appendectomy History of coronary artery stent placement (09/2010) History of hysterectomy History of left heart catheterization (10/09/13) History of tubal ligation Hx of atrioventricular node ablation (03/31/16) Presence of cardiac pacemaker (04/26/15) Social History Smoking Status: Former smoker alcohol intake: never caffeine: Yes Type: coffee Number of servings: 4 ROS <MODESTA Dawn - Last Filed: 12/04/22 18:36> ROS ED ROS Narrative Constitutional: Negative for fever, weight loss, weakness. Positive for chills Eyes: Negative for vision loss, vision change, double vision ENT: Negative for any sore throat, ear pain, congestion Cardiovascular: Negative for any chest pain, tightness, palpitations Respiratory: Negative for any cough, sputum production, hemoptysis, dyspnea, dyspnea on exertion, orthopnea Gastrointestinal: Negative for any vomiting, diarrhea, constipation, blood in stool, blood in vomit. Positive for abdominal pain : Negative for any urinary frequency, dysuria, retention, blood in urine Muscle skeletal: Negative for any muscle joint pain, stiffness, myalgias, arthralgias, neck pain, back pain Neurological: Negative for any headache, syncope, numbness or tingling, dizziness Skin: Negative for any rashes, lumps, itching, abrasions, lacerations Psychiatric: Negative for any depression, anxiety, stress, suicidal ideation, homicidal ideation Hematologic: Negative for any easy bruising, excessive bruising, easy bleeding Allergies: Negative for any eczema, hives, rash EXAM <MODESTA Dawn - Last Filed: 12/04/22 18:36> Physical Exam Narrative Exam Narrative: Vital signs reviewed. Patient is alert and orient x4. Patient was 88 to 89% on room air, tachypneic. Patient placed on 2 L nasal cannula oxygen. HEET: Head normocephalic atraumatic, TMs clear bilaterally. Posterior pharynx is clear, moist mucous membranes. Nares clear bilaterally. Neck: Supple with no lymphadenopathy or tenderness. No signs of meningismus, negative jolt sign. Cardiac: Regular rate and rhythm no murmurs gallops or rubs, equal peripheral pulses bilaterally. Respiratory: Lungs clear to auscultation bilaterally. No chest tenderness. Lungs were clear, patient was tachypneic Abdomen: Soft, nontender, nondistended. No abdominal bruit or pulsatile masses. No hepatosplenomegaly Extremities: No peripheral edema, no signs of gross trauma or deformity. Active full range of motion of all extremities. Neuro: Cranial nerves II through XII intact, no focal neurological deficits. Skin: Clean dry and intact with no rash, purpura, petechiae, vesicles or pustules. Backs/flank: No CVA tenderness, no midline spinal tenderness, no deformity. Psych: Normal mood and affect. No SI, HI or acute psychosis. Const Vital Signs: 12/04/22 13:55 12/04/22 14:27 12/04/22 15:07 Temperature 96.3 F L Temperature Source Temporal Pulse Rate 90 88 Respiratory Rate 18 20 H Respiratory Pattern Normal Blood Pressure 152/84 H Blood Pressure Mean 106 Pulse Ox 94 Oxygen Delivery Method Room Air Room Air 12/04/22 17:54 Temperature Temperature Source Pulse Rate Respiratory Rate Respiratory Pattern Blood Pressure 118/65 Blood Pressure Mean 82 Pulse Ox Oxygen Delivery Method Positive well nourished and well developed General Appearance ED: well developed <Dr. Steven Schaffer MD - Last Filed: 12/04/22 16:28> Physical Exam Const Vital Signs: 12/04/22 13:55 12/04/22 14:27 12/04/22 15:07 Temperature 96.3 F L Temperature Source Temporal Pulse Rate 90 88 Respiratory Rate 18 20 H Respiratory Pattern Normal Blood Pressure 152/84 H Blood Pressure Mean 106 Pulse Ox 94 Oxygen Delivery Method Room Air Room Air 12/04/22 17:54 Temperature Temperature Source Pulse Rate Respiratory Rate Respiratory Pattern Blood Pressure 118/65 Blood Pressure Mean 82 Pulse Ox Oxygen Delivery Method [facility] <MODESTA Dawn - Last Filed: 12/04/22 18:36> [facility] Lab Data Labs: Laboratory Results - last 24 hr 12/04/22 12/04/22 12/04/22 14:45 14:45 14:45 WBC 17.1 H RBC 4.13 L Hgb 13.2 Hct 40.2 MCV 97.3 MCH 32.0 MCHC 32.8 RDW Std Deviation 47.1 H RDW Coeff of Jose Alberto 13.2 Plt Count 302 MPV 10.4 Immature Gran % (Auto) 0.600 Neut % (Auto) 89.3 H Lymph % (Auto) 6.6 L [place] % (Auto) 2.3 Eos % (Auto) 0.8 Baso % (Auto) 0.4 Absolute Neuts (auto) 15.3 H Absolute Lymphs (auto) 1.13 Nucleated RBC % 0 PT 24.6 H INR 2.2 Sodium 134 L Potassium 3.0 L Chloride 101 Carbon Dioxide 25.0 Anion Gap 8 BUN 24 H Creatinine 1.55 H Estim Creat Clear Calc 25.74 Est GFR (MDRD) Af Amer 41 L Est GFR (MDRD) Non-Af 34 L BUN/Creatinine Ratio 15.5 Glucose 163 H Calcium 9.8 Total Bilirubin 0.60 AST 20 ALT 18 Alkaline Phosphatase 123 H Troponin I High Sens 11 B-Natriuretic Peptide Total Protein 9.1 H Albumin 3.8 Globulin 5.3 H Albumin/Globulin Ratio 0.7 L Lipase 54 Urine Color Urine Clarity Urine pH Ur Specific [place] Urine Protein Urine Glucose (UA) Urine Ketones Urine Occult Blood Urine Nitrite Urine Bilirubin Urine Urobilinogen Ur Leukocyte Esterase Urine RBC Urine WBC Ur Squamous Epith Cells Urine Bacteria Urine Mucus 12/04/22 12/04/22 12/04/22 14:45 16:45 17:50 WBC RBC Hgb Hct MCV MCH MCHC RDW Std Deviation RDW Coeff of Jose Alberto Plt Count MPV Immature Gran % (Auto) Neut % (Auto) Lymph % (Auto) [place] % (Auto) Eos % (Auto) Baso % (Auto) Absolute Neuts (auto) Absolute Lymphs (auto) Nucleated RBC % PT INR Sodium Potassium Chloride Carbon Dioxide Anion Gap BUN Creatinine Estim Creat Clear Calc Est GFR (MDRD) Af Amer Est GFR (MDRD) Non-Af BUN/Creatinine Ratio Glucose Calcium Total Bilirubin AST ALT Alkaline Phosphatase Troponin I High Sens 10 B-Natriuretic Peptide 236.7 H Total Protein Albumin Globulin Albumin/Globulin Ratio Lipase Urine Color Yellow Urine Clarity Turbid Urine pH 6.0 Ur Specific [place] 1.010 Urine Protein 30 H Urine Glucose (UA) 1000 H Urine Ketones Negative Urine Occult Blood 50 H Urine Nitrite Negative Urine Bilirubin Negative Urine Urobilinogen Normal Ur Leukocyte Esterase 500 H Urine RBC 0 SEEN Urine WBC >100 SEEN Ur Squamous Epith Cells 0-5 SEEN Urine Bacteria 1+ Urine Mucus 0 SEEN Radiography Diagnostic Testing: Clinical Impression(s) from Imaging Studies Abdomen/Pelvis CT 12/04/22 14:28 IMPRESSION: (NOT LISTED IN ORDER OF SIGNIFICANCE) Focal wall thickening and inflammation of the rectosigmoid colon suggesting a colitis. T12 vertebra plana deformity with a 5.4mm posterior displaced fragment. T12 is noted on the prior CT scan and The T12 finding is new since the prior CT scan. However, overall, these are age-indeterminate. MRI could further evaluate if of concern. Other findings as above. Electronically Signed: Aravind David MD at 16:06 EDT , Chest X-Ray 12/04/22 15:32 IMPRESSION: T12 vertebra plana deformity with a 5.4mm posterior displaced fragment. T8 compression deformity. T12 is noted on the prior CT scan and The T12 finding is new since the prior CT scan. However, overall, these are age-indeterminate. MRI could further evaluate if of concern. Electronically Signed: Aravind David MD at 15:57 EDT , EKG Paced rhythm: Comments: EKG shows a ventricle paced rhythm, rate of 90 bpm, QRS 178 ms, there is no acute ST elevation, no acute infarct noted. Treatment and Re-Evaluation :: All radiologic examinations were read, reviewed by the emergency department attending. From these reads, a plan of care will be put in place. Patient appears to be in no distress, she appears nontoxic. Patient's respiratory exam shows tachypnea, she was 88 to 89% on room air. Patient also was having rigors. Patient's oral temp that I took was 98.3. Patient will receive a combination of both a abdominal work-up as well as a cardiac work-up. This will include a chest x-ray concerning for any pneumonia, COVID and flu secondary to the viral infection because of the rigors. Abdominal work-up concerning for any intra-abdominal process, bowel obstruction, cholecystitis. Patient EKG was unremarkable with a paced rhythm. Patient is currently not have any chest pain, shortness of breath, abdominal pain. Patient appears well, patient has a pulse oxygenation of 93 to 94% on room air. Patient's laboratory studies do show a leukocytosis white blood count 17.1, patient's chemistries show slight renal function with creatinine 1.5, patient is baseline. Patient's proBNP is 236, this is nonspecific secondary the patient not feeling short of breath. Alkaline phosphatase is slightly elevated 123. Lipase was negative. Patient's chest x-ray showed no acute process, did show some fractures of the T-spine however these were not acute. Patient CT scan of the abdomen pelvis shows focal wall thickening and inflammation in the rectosigmoid colon suggesting of colitis. This does explain the patient's lower abdominal pain, chills as well as leukocytosis. Patient's currently has no history of ACS, AR is a initial troponin was negative, repeat troponin will be drawn. Patient will be treated as infectious colitis, she will be treated with Cipro and Flagyl. As long as her second opponent is negative, she does feel safe for discharge. I do agree and patient will follow-up outpatient. She will be given dicyclomine, Cipro and Flagyl as well as nausea medicine. She is instructed to follow-up as needed, to maintain hydration. All questions answered, patient stable for discharge. Patient's urinalysis also shows infection. Patient will have a urine sent for culture. She is on ciprofloxacin, this will cover UTI bacteria. Jonah troponin was negative. <Dr. Steven Schaffer MD - Last Filed: 12/04/22 16:28> [facility] Lab Data Attestation: I reviewed the patient's lab results. Labs: Laboratory Results - last 24 hr 12/04/22 12/04/22 12/04/22 14:45 14:45 14:45 WBC 17.1 H RBC 4.13 L Hgb 13.2 Hct 40.2 MCV 97.3 MCH 32.0 MCHC 32.8 RDW Std Deviation 47.1 H RDW Coeff of Jose Alberto 13.2 Plt Count 302 MPV 10.4 Immature Gran % (Auto) 0.600 Neut % (Auto) 89.3 H Lymph % (Auto) 6.6 L [place] % (Auto) 2.3 Eos % (Auto) 0.8 Baso % (Auto) 0.4 Absolute Neuts (auto) 15.3 H Absolute Lymphs (auto) 1.13 Nucleated RBC % 0 PT 24.6 H INR 2.2 Sodium 134 L Potassium 3.0 L Chloride 101 Carbon Dioxide 25.0 Anion Gap 8 BUN 24 H Creatinine 1.55 H Estim Creat Clear Calc 25.74 Est GFR (MDRD) Af Amer 41 L Est GFR (MDRD) Non-Af 34 L BUN/Creatinine Ratio 15.5 Glucose 163 H Calcium 9.8 Total Bilirubin 0.60 AST 20 ALT 18 Alkaline Phosphatase 123 H Troponin I High Sens 11 B-Natriuretic Peptide Total Protein 9.1 H Albumin 3.8 Globulin 5.3 H Albumin/Globulin Ratio 0.7 L Lipase 54 Urine Color Urine Clarity Urine pH Ur Specific [place] Urine Protein Urine Glucose (UA) Urine Ketones Urine Occult Blood Urine Nitrite Urine Bilirubin Urine Urobilinogen Ur Leukocyte Esterase Urine RBC Urine WBC Ur Squamous Epith Cells Urine Bacteria Urine Mucus 12/04/22 12/04/22 12/04/22 14:45 16:45 17:50 WBC RBC Hgb Hct MCV MCH MCHC RDW Std Deviation RDW Coeff of Jose Alberto Plt Count MPV Immature Gran % (Auto) Neut % (Auto) Lymph % (Auto) [place] % (Auto) Eos % (Auto) Baso % (Auto) Absolute Neuts (auto) Absolute Lymphs (auto) Nucleated RBC % PT INR Sodium Potassium Chloride Carbon Dioxide Anion Gap BUN Creatinine Estim Creat Clear Calc Est GFR (MDRD) Af Amer Est GFR (MDRD) Non-Af BUN/Creatinine Ratio Glucose Calcium Total Bilirubin AST ALT Alkaline Phosphatase Troponin I High Sens 10 B-Natriuretic Peptide 236.7 H Total Protein Albumin Globulin Albumin/Globulin Ratio Lipase Urine Color Yellow Urine Clarity Turbid Urine pH 6.0 Ur Specific [place] 1.010 Urine Protein 30 H Urine Glucose (UA) 1000 H Urine Ketones Negative Urine Occult Blood 50 H Urine Nitrite Negative Urine Bilirubin Negative Urine Urobilinogen Normal Ur Leukocyte Esterase 500 H Urine RBC 0 SEEN Urine WBC >100 SEEN Ur Squamous Epith Cells 0-5 SEEN Urine Bacteria 1+ Urine Mucus 0 SEEN Radiography Diagnostic Testing: Clinical Impression(s) from Imaging Studies Abdomen/Pelvis CT 12/04/22 14:28 IMPRESSION: (NOT LISTED IN ORDER OF SIGNIFICANCE) Focal wall thickening and inflammation of the rectosigmoid colon suggesting a colitis. T12 vertebra plana deformity with a 5.4mm posterior displaced fragment. T12 is noted on the prior CT scan and The T12 finding is new since the prior CT scan. However, overall, these are age-indeterminate. MRI could further evaluate if of concern. Other findings as above. Electronically Signed: Aravind David MD at 16:06 EDT , Chest X-Ray 12/04/22 15:32 IMPRESSION: T12 vertebra plana deformity with a 5.4mm posterior displaced fragment. T8 compression deformity. T12 is noted on the prior CT scan and The T12 finding is new since the prior CT scan. However, overall, these are age-indeterminate. MRI could further evaluate if of concern. Electronically Signed: Aravind David MD at 15:57 EDT , Treatment and Re-Evaluation Comments:: Seen and evaluated independently and in conjunction with nurse practitioner. Agree with notes above unless documented otherwise. Patient with lower abdominal pain, no other acute symptoms that started today gradually. She is a little short of breath but states this is typical for her and not necessarily worse than usual. Chronic cough unchanged. No hemoptysis. History of COPD not on home oxygen. She states she has had symptoms like this, pain in her lower abdomen, when she had diagnosed with an acute heart issue. EMS sent 3 versions of her EKG, all of which were reviewed and interpreted by myself, and showed ventricular paced and capture, with a left bundle branch block pattern and no criteria for STEMI. On exam, she has very mild diffuse lower abdominal tenderness, nonsurgical abdomen and otherwise nontender. Lungs are wheezy with a prolonged expiratory phase no respiratory distress, no crackles or rales. No significant pedal edema. Plan is CT we will also do a cardiac work-up I interpreted her EKG it is normal showing no differences from her other 3 EKGs and no criteria for STEMI. She was reassured as far as this is concerned, we are doing serial troponins in addition to confirm. Discharge Plan Triage Chief Complaint: Abd Pain ED Midlevel Provider: Joshua Viramontes ED Provider: Karime,Steven Dx/Rx/DC Orders Clinical Impression: Colitis, Chronic kidney insufficiency, UTI (urinary tract infection) Instructions: CKD Dc, How the Colon Works, ED Understanding Colitis Prescriptions: New ciprofloxacin HCl [Cipro] 500 mg tablet 500 mg PO BID Qty: 20 0RF metronidazole 500 mg tablet 500 mg PO TID Qty: 30 0RF dicyclomine 20 mg tablet 20 mg PO BID Qty: 14 0RF ondansetron 4 mg tablet,disintegrating 4 mg PO Q8H PRN PRN (Reason: Nausea) Qty: 10 0RF No Action acetaminophen 500 mg capsule 500 mg PO Q6H diphenhydramine HCl [Allergy Relief(diphenhydramin)] 25 mg tablet 25 mg PO TID PRN glimepiride 4 mg tablet 4 mg PO DAILY omeprazole 40 MG capsule 40 mg PO DAILY Label Comments: acid reflux buspirone 15 MG tablet 15 mg PO BID Label Comments: depression nitroglycerin 0.4 MG tablet 0.4 mg SUBLINGUAL Q5M PRN (Reason: Chest Pain) levothyroxine 75 MCG tablet 75 mcg PO DAILY amitriptyline 25 MG tablet 25 mg PO QHS oxycodone 5 mg tablet 5 mg PO Q8H PRN (Reason: pain) 6 Days Qty: 20 0RF simvastatin 20 mg tablet See Rx Instructions .ROUTE .COMPLEX Qty: 90 3RF Dose Instruction: TAKE 1 TABLET AT BEDTIME Rx Instructions: TAKE 1 TABLET AT BEDTIME Xarelto 20 mg tablet See Rx Instructions .ROUTE .COMPLEX Qty: 90 3RF Dose Instruction: TAKE 1 TABLET DAILY Rx Instructions: TAKE 1 TABLET DAILY hydrochlorothiazide 12.5 mg tablet See Rx Instructions .ROUTE .COMPLEX Qty: 90 3RF Dose Instruction: TAKE 1 TABLET DAILY Rx Instructions: TAKE 1 TABLET DAILY metoprolol succinate 25 mg tablet extended release 24 hr See Rx Instructions .ROUTE .COMPLEX Qty: 90 3RF Dose Instruction: TAKE 1 TABLET DAILY Rx Instructions: TAKE 1 TABLET DAILY amlodipine 10 mg tablet See Rx Instructions .ROUTE .COMPLEX Qty: 90 3RF Dose Instruction: TAKE 1 TABLET DAILY Rx Instructions: TAKE 1 TABLET DAILY losartan 100 mg tablet See Rx Instructions .ROUTE .COMPLEX Qty: 90 3RF Dose Instruction: TAKE 1 TABLET DAILY Rx Instructions: TAKE 1 TABLET DAILY Primary Care Provider: Matt Rocha Referrals: Matt Rocha MD [Primary Care Provider] - Activity Restrictions/Additional Instructions: Please follow-up. Maintain hydration. Disposition Disposition: Home, Self Care
[2022-12-04 14:52] LABS: Absolute Lymphocyte Count 1.13 X10^3/uL (0.83-4.51); Absolute Neutrophil Count 15.3 X10^3/uL (2.0-7.7); Basophil# 0.07 X10^3/uL; Basophil% 0.4 % (0-1); Eosinophil# 0.14 X10^3/uL; Eosinophils% 0.8 % (0-5); Hematocrit 40.2 % (37-47); Hemoglobin 13.2 g/dL (12.0-15.0); Lymphocyte # 1.13 X10^3/ul (0.83-4.51); Lymphocyte % 6.6 % (19-41); Mean Corp Hgb Conc 32.8 g/dL (32-36); Mean Corpuscular Volume 97.3 fL (81-99); Mean Platelet Vol. 10.4 fl (6.2-12.0); Monocyte% 2.3 % (0-10); NRBC Flagged by Analyzer 0 % (0-5); Neutrophil # 15.26 X10^3/uL (2.7-7.7); Neutrophil % 89.3 % (47-70); Platelet Count 302 K/mm3 (150-450); RBC Distribution Width CV 13.2 % (11.6-14.6); RBC Distribution Width SD 47.1 fl (35.1-43.9); Red Blood Count 4.13 M/mm3 (4.2-5.4); White Blood Count 17.1 K/mm3 (4.4-11.0)
[2022-12-04 15:02] LABS: International Normalized Ratio 2.2; Prothrombin Time (Protime)PT. 24.6 SECONDS (11.7-14.9)
[2022-12-04 15:07] VITALS: PULSE 88; RESP 20
[2022-12-04 15:07] LABS: BNP,B-Type NATRIURETIC PEPTIDE 236.7 pg/mL (0-100)
[2022-12-04 15:11] LABS: ALB/GLOB Ratio 0.7 RATIO (0.9-2.4); AST(SGOT) 20 U/L (15-37); Alanine Aminotransfer ALT/SGPT 18 U/L (13-56); Albumin, Serum 3.8 g/dL (3.2-5.0); Alkaline Phosphatase 123 U/L (45-117); Anion Gap 8 (5-15); BUN 24 mg/dL (7-18); BUN/Creat Ratio 15.5 RATIO (10-20); Calcium,Total 9.8 mg/dL (8.5-10.1); Chloride 101 mmol/L (98-107); Creatinine, Serum 1.55 mg/dL (0.55-1.02); EST Glomerular Filtration Rate 34 mL/min (>60); Est Glom Filt Rate - Afr Amer 41 mL/min (>60); Estimated Creatinine Clearance 25.74 ml/min; Globulin 5.3 g/dL (2.2-4.2); Glucose 163 mg/dL (74-106); Lipase 54 U/L (13-75); Protein, Total 9.1 g/dL (6.4-8.2); Sodium Level 134 mmol/L (136-145); Troponin-I HS (w/2H Reflex) 11 pg/mL (3.0-54.0)
--- NOTE | 2022-12-04 15:32 | RAD_ITS ---
STUDY: XR Chest 2 Views 12/04/2022 3:31 PM REASON FOR EXAM: Female, 82 years old. CHEST PAIN chest pain COMPARISON: December 27, 2018 cxr and ctap 7.9.19 TECHNIQUE: XR Chest 2 Views FINDINGS: There is no demonstrated pleural abnormality. There is a left sided pacemaker batterypack. T12 vertebra plana deformity with a 5.4mm posterior displaced fragment. T8 compression deformity. T12 is noted on the prior CT scan and The T12 finding is new since the prior CT scan. However, overall, these are age-indeterminate. MRI could further evaluate if of concern. Enlarged heart size. Normal mediastinum. Normal radha. Prominent appearing increased interstitial lung markings. Normal visualized pulmonary arteries. There is atherosclerotic calcification of the aortic arch with tortuosity. There are diffuse degenerative changes of the visualized thoracic spine. There is degenerative osteoarthritis of the bilateral shoulders. There is no demonstrated abnormality of the visualized soft tissue structures of the upper abdomen. RAD/Chest PA and Lateral IMPRESSION: T12 vertebra plana deformity with a 5.4mm posterior displaced fragment. T8 compression deformity. T12 is noted on the prior CT scan and The T12 finding is new since the prior CT scan. However, overall, these are age-indeterminate. MRI could further evaluate if of concern. Electronically Signed: Aravind David MD at 15:57 EDT ,
[2022-12-04] MEDS: Ipratropium/Albuterol Sulfate 3 ML AMPUL.NEB INHALATION (15:46)
[2022-12-04 16:49] LABS: Reflex Troponin-HS? (from REC) Y
[2022-12-04 16:51] LABS: Mucous, Urine 0 SEEN /hpf (<or=2+); Red Blood Cells-Urine 0 SEEN /hpf (0-5)
[2022-12-04 16:55] LABS: Color, Urine Yellow (Yellow); Glucose, Dipstick 1000 mg/dl (Normal); Ketone-Dipstick Negative (Negative); Leukocyte Esterase-Dipstick 500 /ul (Negative); Nitrite-Dipstick Negative (Negative); Occult Blood-Urine 50 /ul (Negative); Protein-Dipstick 30 mg/dl (Negative); Urine Bilirubin Dipstick Negative (Negative); Urine Clarity Turbid (Clear); Urine Urobilinogen Normal (Normal)
[2022-12-04 17:14] LABS: White Blood Cells >100 SEEN /hpf (0-5)
[2022-12-04 17:15] LABS: Bacteria 1+ /hpf (None Seen); Squamous Epithelial Cells - UA 0-5 SEEN /hpf (5-10)
[2022-12-04 17:54] VITALS: BP 118/65
[2022-12-04] MEDS: Ciprofloxacin 500 MG Tablet PO (17:55)
[2022-12-04] MEDS: metroNIDAZOLE 500 MG Tablet PO (17:55)
[2022-12-04 18:20] LABS: Troponin-I HS 10 pg/mL (3.0-54.0)
== END 2022-12-04 18:52 | disposition home or self-care (01) ==
PROVIDERS: Nurse Practitioner; Emergency Provider Emergency Medicine; PCP Family Medicine; Visit Provider Emergency Medicine
DX: K52.9 Noninfective gastroenteritis and colitis, unspecified (principal); I48.91 Unspecified atrial fibrillation; N39.0 Urinary tract infection, site not specified; I12.9 Hypertensive chronic kidney disease with stage 1 through stage 4 chronic kidney disease, or unspecified chronic kidney disease; Z87.891 Personal history of nicotine dependence; N18.9 Chronic kidney disease, unspecified; I25.10 Atherosclerotic heart disease of native coronary artery without angina pectoris; E78.5 Hyperlipidemia, unspecified; Z79.01 Long term (current) use of anticoagulants; I25.2 Old myocardial infarction; Z79.899 Other long term (current) drug therapy
CPT/HCPCS: 71046; 74177; 80053; 81001; 83690; 83880; 84484; 85025; 85610; 87077; 87086; 87088; 87186; 87428; 93005; 94640; 99285; Q9967; A4216

== ENCOUNTER → 2023-02-17 | Outpatient (CLI) | payer MEDICARE, BC, SELFPAY ==
[2023-02-17 12:08] LABS: Absolute Lymphocyte Count 1.75 X10^3/uL (0.83-4.51); Absolute Neutrophil Count 4.6 X10^3/uL (2.0-7.7); Basophil# 0.04 X10^3/uL; Basophil% 0.5 % (0-1); Eosinophil# 0.18 X10^3/uL; Eosinophils% 2.5 % (0-5); Hematocrit 40.9 % (37-47); Hemoglobin 12.7 g/dL (12.0-15.0); Lymphocyte # 1.75 X10^3/ul (0.83-4.51); Lymphocyte % 23.8 % (19-41); Mean Corp Hgb Conc 31.1 g/dL (32-36); Mean Corpuscular Hgb 29.7 pg (27.0-32.0); Mean Corpuscular Volume 95.6 fL (81-99); Mean Platelet Vol. 10.3 fl (6.2-12.0); Monocyte# 0.76 X10^3/uL; Monocyte% 10.4 % (0-10); NRBC Flagged by Analyzer 0 % (0-5); Neutrophil # 4.59 X10^3/uL (2.7-7.7); Neutrophil % 62.5 % (47-70); Platelet Count 298 K/mm3 (150-450); RBC Distribution Width CV 13.6 % (11.6-14.6); RBC Distribution Width SD 47.8 fl (35.1-43.9); Red Blood Count 4.28 M/mm3 (4.2-5.4); White Blood Count 7.3 K/mm3 (4.4-11.0)
[2023-02-17 13:13] LABS: Anion Gap 4 (5-15); BUN 18 mg/dL (7-18); BUN/Creat Ratio 13.1 RATIO (10-20); Calcium,Total 9.7 mg/dL (8.5-10.1); Chloride 102 mmol/L (98-107); Creatinine, Serum 1.37 mg/dL (0.55-1.02); EST Glomerular Filtration Rate 39 mL/min (>60); Est Glom Filt Rate - Afr Amer 47 mL/min (>60); Glucose 127 mg/dL (74-106); Potassium 3.9 mmol/L (3.5-5.1); Sodium Level 135 mmol/L (136-145); Thyroid Stim Hormone (TSH) 2.83 uIU/mL (0.358-3.74)
== END | disposition home or self-care (01) ==
LOC: LAB 11:45
PROVIDERS: PCP Family Medicine; Referring Provider Internal Medicine Cardiovascular Disease; Visit Provider Internal Medicine Cardiovascular Disease
DX: Z95.5 Presence of coronary angioplasty implant and graft (principal); E78.00 Pure hypercholesterolemia, unspecified; I25.10 Atherosclerotic heart disease of native coronary artery without angina pectoris
CPT/HCPCS: 36415; 80048; 84443; 85025

== ENCOUNTER → 2023-03-17 | Outpatient (CLI) | payer MEDICARE, BC, SELFPAY ==
--- NOTE | 2023-03-17 12:46 | ECHOCS_ITS ---
Reason For Study: CAD/ASHD Procedure This was a 2D Doppler, Color Flow transthoracic echocardiogram. The study was technically difficult. Contrast injection was performed. Exam performed in department. Left Ventricle Normal LV size. Left ventricular systolic function is normal. Stage 3 diastolic dysfunction. Apical wall motion abnormality may reflect pacemaker activation. Right Ventricle Normal RV size. ICD or pacer leads identified within the right ventricle. Normal systolic function. Atria The left atrium is moderately enlarged. The right atrium is moderately enlarged. ICD or pacer leads identified within the right atrium. Mitral Valve There is mild to moderate mitral annular calcification. Mild (1+) eccentric mitral valve insufficiency. Tricuspid Valve Normal tricuspid valve. Mild (1+) tricuspid valve insufficiency. Pulmonary artery systolic pressure is 43 mmHg. Aortic Valve Normal aortic valve. Mild (1+) aortic valve insufficiency. Pulmonic Valve Normal pulmonic valve. Great Vessels Normal aortic root. The pulmonary artery is normal size. Normal inferior vena cava. Pericardium/Pleural No pericardial effusion. Medication 22 gauge I.V. with prn adaptor inserted into left arm. Diluted definity 1.5ml given slow IV push to enhance endocardial definition. MMode/2D Measurements & Calculations LVIDd: 4.7 cm IVSd: 1.2 cm Ao root diam: 3.4 cm LVIDs: 3.4 cm LVPWd: 0.94 cm LA dimension: 4.9 cm RVDd: 3.4 cm FS: 28.0 % LAV(MOD-bp): 96.5 ml LA A4 area: 26.7 cm2 RA A4 area: 26.8 cm2 LAV(MOD-bp) Indexed: 47.5 ml/m2 LAV(MOD-sp2): 95.6 ml LAV(MOD-sp4): 90.0 ml TAPSE: 1.3 cm Time Measurements MV dec time: 0.19 sec Doppler Measurements & Calculations MV E max eleuterio: 132.2 cm/sec Lat Peak E' Eleuterio: 7.8 cm/sec Med Peak E' Eleuterio: 7.6 cm/sec MV A max eleuterio: 48.1 cm/sec E/E' lat: 17.0 E/E' med: 17.3 MV E/A: 2.8 MV V2 max: 147.9 cm/sec MV P1/2t max eleuterio: 149.0 cm/sec Ao V2 max: 114.1 cm/sec MV max P.8 mmHg MV P1/2t: 84.9 msec Ao max P.2 mmHg MV V2 mean: 90.5 cm/sec MV dec slope: 513.6 cm/sec2 Ao V2 mean: 69.3 cm/sec MV mean P.9 mmHg MVA(P1/2t): 2.6 cm2 Ao mean P.3 mmHg MV V2 VTI: 27.4 cm Ao V2 VTI: 21.2 cm AV (velocity ratio): 0.64 AI max eleuterio: 390.7 cm/sec LV V1 max: 85.7 cm/sec MR max eleuterio: 505.0 cm/sec AI max P.1 mmHg LV V1 max P.9 mmHg MR max P.0 mmHg LV V1 mean P.2 mmHg AI dec slope: 190.4 cm/sec2 LV V1 mean: 49.6 cm/sec AI P1/2t: 601.0 msec LV V1 VTI: 13.6 cm PA V2 max: 88.9 cm/sec PI end-d eleuterio: 150.0 cm/sec TR max eleuterio: 314.1 cm/sec TR max P.5 mmHg ECHO/Echo Complete W/ Contrast Interpretation Summary Normal LV size. Left ventricular systolic function is normal. Stage 3 diastolic dysfunction. The left atrium is moderately enlarged. Mild (1+) tricuspid valve insufficiency. Pulmonary artery systolic pressure is 43 mmHg. Contrast injection was performed. Ordering Physician: Vinny Root Referring Physician: Vinny Root Performed By: London Shirley RCS
== END | disposition home or self-care (01) ==
LOC: CVS 12:45
PROVIDERS: PCP Family Medicine; Referring Provider Internal Medicine Cardiovascular Disease; Visit Provider Internal Medicine Cardiovascular Disease
DX: I25.10 Atherosclerotic heart disease of native coronary artery without angina pectoris (principal)
CPT/HCPCS: 93306; Q9957; A4216; C8929

== ENCOUNTER 2023-06-15 14:09 | Emergency (ER) | payer MEDICARE, BC, SELFPAY ==
[2023-06-15 14:10] VITALS: BP 125/60; PULSE 91; RESP 16; TEMP 36.3; O2SAT 94
--- NOTE | 2023-06-15 16:20 | EDS_ITS ---
HPI <LUIS FELIPE Kerr - Last Filed: 06/15/23 17:38> History of Present Illness Chief Complaint: Complaint Narrative Narrative: Patient presenting today due to concerns that she has a UTI. She reports that she has had symptoms now for several weeks that include cloudy urine, urinary frequency, and dysuria. She went to an urgent care last Thursday and was put on a weeks worth of antibiotics, she is unsure what antibiotic. She reports that on Thursday she finished her course and then on Thursday she began to have symptoms again. She reports that today she does not seem to be having as much urinary frequency but is still having dysuria and cloudy urine. She denies any fever, chills, flank pain, abdominal pain, nausea, and vomiting. PMH includes atrial fibrillation, hypertension, hyperlipidemia, and pacemaker placement. PFSH <LUIS FELIPE Kerr - Last Filed: 06/15/23 17:38> [facility] Medical History Anxiety Atherosclerosis of coronary artery of [place] heart without angina pectoris Essential (primary) hypertension History of non-ST elevation myocardial infarction (NSTEMI) (2013) Hyperlipidemia Hypothyroidism Iron deficiency anemia Longstanding persistent atrial fibrillation Paroxysmal atrial fibrillation Paroxysmal atrial flutter Secondary pulmonary arterial hypertension Sick sinus syndrome Home Medications buspirone 15 mg tablet 15 mg PO BID 06/02/13 [History Last Taken Unknown] omeprazole 40 mg capsule,delayed release 40 mg PO DAILY 06/02/13 [History Last Taken 09/15/16 08:30] nitroglycerin 0.4 mg sublingual tablet 0.4 mg sublingual Q5M PRN Chest Pain 04/21/15 [History Last Taken Unknown] levothyroxine 75 mcg tablet 75 mcg PO DAILY 04/02/17 [History Last Taken Unknown] glimepiride 4 mg tablet 4 mg PO DAILY 01/24/22 [History Last Taken Unknown] simvastatin 20 mg tablet See Rx Instructions .Route .COMPLEX #90 tabs 08/25/22 [Rx Last Taken Unknown] rivaroxaban 20 mg tablet (Xarelto) See Rx Instructions .Route .COMPLEX #90 tabs 10/06/22 [Rx Last Taken Unknown] amlodipine 10 mg tablet See Rx Instructions .Route .COMPLEX #90 tabs 12/01/22 [Rx Last Taken Unknown] hydrochlorothiazide 12.5 mg tablet See Rx Instructions .Route .COMPLEX #90 tabs 12/01/22 [Rx Last Taken Unknown] losartan 100 mg tablet See Rx Instructions .Route .COMPLEX #90 tabs 12/01/22 [Rx Last Taken Unknown] metoprolol succinate 25 mg tablet,extended release 24 hr See Rx Instructions .Route .COMPLEX #90 tabs 12/01/22 [Rx Last Taken Unknown] acetaminophen 500 mg capsule 1,000 mg PO Q4H PRN 02/17/23 [History Last Taken Unknown] amitriptyline 50 mg tablet 50 mg PO QHS 02/17/23 [History Last Taken Unknown] empagliflozin 10 mg tablet (Jardiance) 10 mg PO DAILY 02/17/23 [History Last Taken Unknown] ketotifen fumarate 0.025 % (0.035 %) eye drops (Alaway) 1 drp ophthalmic (eye) BID 02/17/23 [History Last Taken Unknown] levofloxacin 750 mg tablet 750 mg PO DAILY 4 days #4 tabs 06/15/23 [Rx Last Taken Unknown] Allergy/AdvReac Type Severity Reaction Status Date / Time poison fany extract Allergy Rash Verified 02/17/23 11:21 [Poison Fany Extract] Sulfa (Sulfonamide Allergy Hives Verified 02/17/23 11:21 Antibiotics) Family History Mother Cancer Father Cancer Brother CAD (coronary artery disease) Sister CAD (coronary artery disease) Surgical History History of appendectomy History of coronary artery stent placement (09/2010) History of hysterectomy History of left heart catheterization (10/09/13) History of tubal ligation Hx of atrioventricular node ablation (03/31/16) Presence of cardiac pacemaker (04/26/15) Social History Smoking Status: Former smoker how long ago did patient quit smokin's alcohol intake: never substance use type: does not use caffeine: Yes Type: coffee Number of servings: 3 ROS <LUIS FELIPE Kerr - Last Filed: 06/15/23 17:38> ROS ED Constitutional Constitutional ED: Denies chills or fever(s) Cardiovascular Cardiovascular: Denies chest pain Respiratory/Chest Respiratory/Chest: Denies cough or dyspnea Gastrointestinal Gastrointestinal: Denies abdominal pain, nausea or vomiting Genitourinary Genitourinary ED: Reports dysuria and urinary frequency; Denies hematuria Musculoskeletal Musculoskeletal: Denies arthralgias or myalgias Integumentary Denies rash Neurologic Neurologic: Denies weakness EXAM <LUIS FELIPE Kerr - Last Filed: 06/15/23 17:38> Physical Exam Const Vital Signs: 06/15/23 14:10 Temperature 97.3 F L Temperature Source Temporal Pulse Rate 91 Respiratory Rate 16 Blood Pressure 125/60 H Blood Pressure Mean 81 Pulse Ox 94 Oxygen Delivery Method Room Air Positive well nourished, well developed and no apparent distress General Appearance ED: well developed HEENT Reports normocephalic and head/scalp atraumatic Mouth ED: Yes moist mucous membranes normal Eyes PERRL and EOMs intact bilaterally Neck full ROM and supple Chest Wall inspection of chest normal Resp normal respiratory effort and clear to auscultation bilaterally Cardio regular rate and regular rhythm GI soft to palpation, non-tender, non-distended and no masses Back/Spine normal ROM and normal to inspection General Back: Negative for CVA tenderness Extremity normal to inspection and full ROM Neuro oriented x3, CN's II-XII intact bilaterally, moves all extremities, no focal motor deficits and no sensory deficits noted Sensorium / Orientation: awake and alert Psych mental status grossly normal and thought process normal Skin no rashes or lesions noted and no wounds <Jignesh Thomas MD - Last Filed: 06/15/23 22:38> Physical Exam Const Vital Signs: 06/15/23 14:10 Temperature 97.3 F L Temperature Source Temporal Pulse Rate 91 Respiratory Rate 16 Blood Pressure 125/60 H Blood Pressure Mean 81 Pulse Ox 94 Oxygen Delivery Method Room Air MDM <LUIS FELIPE Kerr - Last Filed: 06/15/23 17:38> [facility] Narrative Medical decision making narrative: Patient presenting with urinary symptoms that she has had for the past few weeks. She was treated with cephalexin for 7 days after her UA came back positive for UTI when she went to an urgent care 06/05/2023. Her symptoms seem to worsen again on Thursday. She has not had any fevers, flank pain, chills, abdominal pain,nausea, or vomiting. I do not think that any labs are indicated at this time. UA will be obtained to rule out UTI and is positive. This will be cultured. She failed Keflex and she has an allergy to Bactrim, we will start her on levofloxacin with first dose here. She is to follow-up with her PCP and will be discharged home in stable condition. She is comfortable with plan. Lab Data Attestation: I reviewed the patient's lab results. Labs: Laboratory Results - last 24 hr 06/15/23 16:30 Urine Color Yellow Urine Clarity Cloudy Urine pH 6.5 Ur Specific [place]ye 1.010 Urine Protein 30 H Urine Glucose (UA) 1000 H Urine Ketones Negative Urine Occult Blood 50 H Urine Nitrite Negative Urine Bilirubin Negative Urine Urobilinogen Normal Ur Leukocyte Esterase 500 H Urine RBC 0 SEEN Urine WBC >100 SEEN Ur Squamous Epith Cells 0 SEEN Urine Bacteria 4+ Urine Mucus 0 SEEN <Jignesh Thomas MD - Last Filed: 06/15/23 22:38> MDM MDM Narrative Medical decision making narrative: Patient presenting with urinary symptoms that she has had for the past few weeks. She was treated with cephalexin for 7 days after her UA came back positive for UTI when she went to an urgent care 06/05/2023. Her symptoms seem to worsen again on Thursday. She has not had any fevers, flank pain, chills, abdominal pain,nausea, or vomiting. I do not think that any labs are indicated at this time. UA will be obtained to rule out UTI and is positive. This will be cultured. She failed Keflex and she has an allergy to Bactrim, we will start her on levofloxacin with first dose here. She is to follow-up with her PCP and will be discharged home in stable condition. She is comfortable with plan. Dr. Thomas: I have personally performed a face to face assessment of the patient and have reviewed the YVETTE Note. I performed a substantive portion of the visit including all aspects of the following. My molina findings include: History is dysuria, completed course of antibiotics, cephalexin for UTI Exam is afebrile. Vital signs noted. Regular rate and rhythm. Lungs clear to auscultation bilaterally. Abdomen soft and nontender with normoactive bowel sounds. No CVA tenderness to percussion. Nontoxic-appearing. Medical Decision Making: Check UA. Change antibiotics. Discharge. Urine culture pending. Other additions or changes: [None] History & Record Review Discussion w/independent historian: Patient Additional record(s) reviewed:: Prior ED visit and Prior labs Lab Data Labs: Laboratory Results - last 24 hr 06/15/23 16:30 Urine Color Yellow Urine Clarity Cloudy Urine pH 6.5 Ur Specific [place] 1.010 Urine Protein 30 H Urine Glucose (UA) 1000 H Urine Ketones Negative Urine Occult Blood 50 H Urine Nitrite Negative Urine Bilirubin Negative Urine Urobilinogen Normal Ur Leukocyte Esterase 500 H Urine RBC 0 SEEN Urine WBC >100 SEEN Ur Squamous Epith Cells 0 SEEN Urine Bacteria 4+ Urine Mucus 0 SEEN Discharge Plan Triage Chief Complaint: Complaint ED Midlevel Provider: Lizet Bradshaw ED Provider: Jignesh Thomas Dx/Rx/DC Orders Clinical Impression: Acute UTI Instructions: ED Cystitis Female Adult Prescriptions: New levofloxacin 750 mg tablet 750 mg PO DAILY 4 Days Qty: 4 0RF No Action acetaminophen 500 mg capsule 1,000 mg PO Q4H PRN glimepiride 4 mg tablet 4 mg PO DAILY amitriptyline 50 mg tablet 50 mg PO QHS Jardiance 10 mg tablet 10 mg PO DAILY ketotifen fumarate [Alaway] 0.025 % (0.035 %) drops 1 drp ophthalmic (eye) BID Rx Instructions: administer at least 8 hours apart omeprazole 40 MG capsule 40 mg PO DAILY Patient Comments: acid reflux buspirone 15 MG tablet 15 mg PO BID Patient Comments: depression nitroglycerin 0.4 MG tablet 0.4 mg SUBLINGUAL Q5M PRN (Reason: Chest Pain) levothyroxine 75 MCG tablet 75 mcg PO DAILY simvastatin 20 mg tablet See Rx Instructions .ROUTE .COMPLEX Qty: 90 3RF Dose Instruction: TAKE 1 TABLET AT BEDTIME Rx Instructions: TAKE 1 TABLET AT BEDTIME Xarelto 20 mg tablet See Rx Instructions .ROUTE .COMPLEX Qty: 90 3RF Dose Instruction: TAKE 1 TABLET DAILY Rx Instructions: TAKE 1 TABLET DAILY hydrochlorothiazide 12.5 mg tablet See Rx Instructions .ROUTE .COMPLEX Qty: 90 3RF Dose Instruction: TAKE 1 TABLET DAILY Rx Instructions: TAKE 1 TABLET DAILY metoprolol succinate 25 mg tablet extended release 24 hr See Rx Instructions .ROUTE .COMPLEX Qty: 90 3RF Dose Instruction: TAKE 1 TABLET DAILY Rx Instructions: TAKE 1 TABLET DAILY amlodipine 10 mg tablet See Rx Instructions .ROUTE .COMPLEX Qty: 90 3RF Dose Instruction: TAKE 1 TABLET DAILY Rx Instructions: TAKE 1 TABLET DAILY losartan 100 mg tablet See Rx Instructions .ROUTE .COMPLEX Qty: 90 3RF Dose Instruction: TAKE 1 TABLET DAILY Rx Instructions: TAKE 1 TABLET DAILY Primary Care Provider: Matt Rocha Referrals: Matt Rocha MD [Primary Care Provider] - 3-5 Days Activity Restrictions/Additional Instructions: Follow-up with your PCP and return for any worsening of your symptoms. Disposition Disposition: Home, Self Care Discharge Date/Time: 06/15/23 17:32
[2023-06-15 16:38] LABS: Color, Urine Yellow (Yellow); Glucose, Dipstick 1000 mg/dl (Normal); Ketone-Dipstick Negative (Negative); Leukocyte Esterase-Dipstick 500 /ul (Negative); Mucous, Urine 0 SEEN /hpf (<or=2+); Nitrite-Dipstick Negative (Negative); Occult Blood-Urine 50 /ul (Negative); Protein-Dipstick 30 mg/dl (Negative); Red Blood Cells-Urine 0 SEEN /hpf (0-5); Squamous Epithelial Cells - UA 0 SEEN /hpf (5-10); Urine Bilirubin Dipstick Negative (Negative); Urine Clarity Cloudy (Clear); Urine Urobilinogen Normal (Normal); Urine pH 6.5 (5.0 - 8.0)
[2023-06-15 16:54] LABS: Bacteria 4+ /hpf (None Seen); White Blood Cells >100 SEEN /hpf (0-5)
[2023-06-15] MEDS: levoFLOXacin 750 MG Tablet PO (17:20)
== END 2023-06-15 17:32 | disposition home or self-care (01) ==
PROVIDERS: Physician Assistant; Emergency Provider Emergency Medicine; PCP Family Medicine; Visit Provider Emergency Medicine
DX: N39.0 Urinary tract infection, site not specified (principal); I48.0 Paroxysmal atrial fibrillation; E78.5 Hyperlipidemia, unspecified; I10 Essential (primary) hypertension; I25.10 Atherosclerotic heart disease of native coronary artery without angina pectoris; R39.9 Unspecified symptoms and signs involving the genitourinary system; Z79.84 Long term (current) use of oral hypoglycemic drugs; Z79.01 Long term (current) use of anticoagulants; Z79.890 Hormone replacement therapy; Z79.899 Other long term (current) drug therapy; Z87.891 Personal history of nicotine dependence; Z95.0 Presence of cardiac pacemaker
CPT/HCPCS: 81001; 87086; 87088; 87186; 99282

== ENCOUNTER 2023-12-14 10:40 | Inpatient (IN) | payer MEDICARE, BC, SELFPAY ==
[2023-12-14] VITALS (26 sets, daily range): BP systolic 83–155; BP diastolic 45–98; PULSE 90–93; RESP 12–37; TEMP 35.4–37.2; O2SAT 84–98; BMI 15.3; BMI 32.1
--- NOTE | 2023-12-14 10:46 | EDS_ITS ---
HPI History of Present Illness Chief Complaint: Shortness of Breath [facility] Medical History Anxiety Atherosclerosis of coronary artery of [place] heart without angina pectoris Essential (primary) hypertension History of non-ST elevation myocardial infarction (NSTEMI) (2013) Hyperlipidemia Hypothyroidism Iron deficiency anemia Longstanding persistent atrial fibrillation Paroxysmal atrial fibrillation Paroxysmal atrial flutter Secondary pulmonary arterial hypertension Sick sinus syndrome Home Medications ?Medication ?Instructions ?Recorded ?Last Taken ?Type buspirone 15 mg tablet 15 mg PO BID ANXIETY 06/02/13 Unknown History omeprazole 40 mg capsule,delayed 40 mg PO DAILY ACID REFLUX 06/02/13 09/15/16 08:30 History release nitroglycerin 0.4 mg sublingual 0.4 mg sublingual Q5M PRN CHEST 04/21/15 Unknown History tablet PAIN glimepiride 4 mg tablet 4 mg PO DAILY DIABETES 01/24/22 Unknown History acetaminophen 500 mg capsule 1,000 mg PO Q4H PRN PAIN 02/17/23 Unknown History amitriptyline 50 mg tablet 50 mg PO QHS DEPRESSION 02/17/23 Unknown History empagliflozin 10 mg tablet 10 mg PO DAILY DIABETES 02/17/23 Unknown History (Jardiance) ketotifen fumarate 0.025 % (0.035 1 drp ophthalmic (eye) BID 02/17/23 Unknown History %) eye drops ([place]) ITCHING/ALLERGIES amlodipine 10 mg tablet 10 mg PO DAILY BLOOD PRESSURE 12/14/23 Unknown History hydrochlorothiazide 12.5 mg tablet 12.5 mg PO DAILY BLOOD PRESSURE 12/14/23 Unknown History levothyroxine 100 mcg tablet 100 mcg PO DAILY THYROID 12/14/23 Unknown History (Synthroid) losartan 100 mg tablet 100 mg PO DAILY BLOOD PRESSURE 12/14/23 Unknown History metoprolol succinate 25 mg 25 mg PO DAILY BLOOD PRESSURE 12/14/23 Unknown History tablet,extended release 24 hr rivaroxaban 20 mg tablet (Xarelto) 20 mg PO DAILY BLOOD THINNER 12/14/23 Unknown History simvastatin 20 mg tablet 20 mg PO QHS CHOLESTEROL 12/14/23 Unknown History tizanidine 4 mg tablet 4 mg PO Q8H PRN MUSCLE SPASMS 12/14/23 Unknown History Allergy/AdvReac Type Severity Reaction Status Date / Time poison fany extract (Poison Allergy Rash Verified 12/14/23 10:43 Fany Extract) Sulfa (Sulfonamide Allergy Hives Verified 12/14/23 10:43 Antibiotics) Family History Mother Cancer Father Cancer Brother CAD (coronary artery disease) Sister CAD (coronary artery disease) Surgical History History of appendectomy History of coronary artery stent placement (09/2010) History of hysterectomy History of left heart catheterization (10/09/13) History of tubal ligation Hx of atrioventricular node ablation (03/31/16) Presence of cardiac pacemaker (04/26/15) Social History Smoking Status: Former smoker how long ago did patient quit smokin's alcohol intake: never substance use type: does not use caffeine: Yes Type: coffee Number of servings: 3 EXAM Physical Exam Const Vital Signs: 12/14/23 10:41 12/14/23 10:41 12/14/23 10:45 Temperature 95.8 F L 97.6 F L Temperature Source Temporal Temporal Pulse Rate 91 91 Respiratory Rate 34 H 30 H Respiratory Effort Respiratory Depth Respiratory Pattern Blood Pressure 155/72 H 155/72 H Blood Pressure Mean 99 99 Pulse Ox 84 91 92 Oxygen Delivery Method Room Air Nasal Cannula Nasal Cannula Oxygen Flow Rate (L/min) 5 6 Fraction of Inspired Oxygen (FIO2) 12/14/23 10:45 12/14/23 11:10 12/14/23 11:40 Temperature Temperature Source Pulse Rate 93 90 Respiratory Rate 37 H 22 H Respiratory Effort Short of Breath Labored Respiratory Depth Shallow Respiratory Pattern Tachypnea Tachypnea Blood Pressure 135/78 H Blood Pressure Mean 97 Pulse Ox 94 Oxygen Delivery Method Nasal Cannula High Flow Oxygen Flow Rate (L/min) 10 10 Fraction of Inspired Oxygen (FIO2) 12/14/23 11:45 12/14/23 12:00 12/14/23 12:06 Temperature 97.8 F 98.9 F Temperature Source Temporal Temporal Pulse Rate 91 91 91 Respiratory Rate 22 H 21 H 27 H Respiratory Effort Respiratory Depth Respiratory Pattern Tachypnea Blood Pressure 148/72 H 136/64 H Blood Pressure Mean 97 88 Pulse Ox 90 97 96 Oxygen Delivery Method Bi-pap Room Air Oxygen Flow Rate (L/min) Fraction of Inspired Oxygen (FIO2) 45 12/14/23 13:00 12/14/23 13:00 12/14/23 13:00 Temperature 98.7 F Temperature Source Temporal Pulse Rate 91 90 91 Respiratory Rate 20 H 25 H 22 H Respiratory Effort Respiratory Depth Respiratory Pattern Blood Pressure 141/73 H 147/75 H 136/86 H Blood Pressure Mean 95 99 102 Pulse Ox 95 94 97 Oxygen Delivery Method Nasal Cannula Bi-pap Oxygen Flow Rate (L/min) 12 Fraction of Inspired Oxygen (FIO2) 12/14/23 13:21 12/14/23 14:00 12/14/23 14:05 Temperature 97.7 F L Temperature Source Pulse Rate 90 90 91 Respiratory Rate 22 H 20 H 22 H Respiratory Effort Respiratory Depth Respiratory Pattern Blood Pressure 134/71 H 143/72 H 141/72 H Blood Pressure Mean 92 95 95 Pulse Ox 93 95 95 Oxygen Delivery Method High Flow Nasal Cannula Oxygen Flow Rate (L/min) 12 Fraction of Inspired Oxygen (FIO2) MDM MDM MDM Narrative Medical decision making narrative: HISTORY OF PRESENT ILLNESS: 83-year-old female presents with shortness of breath. Notes progressive symptoms of dyspnea on exertion for the last 6 weeks. No cough, no fever, no chills. No bleeding diathesis. Notes compliance with Xarelto. No chest pain. Notes bilateral foot swelling otherwise denies orthopnea. The patient denies recent surgery in the last 4 weeks or immobilization in the last 3 days, denies previous diagnosis of DVT or PE, hemoptysis, unilateral leg swelling or malignancy with treatment the last 6 months or palliative. No estrogen use noted. Patient notes history of smoking 50 years ago. Per nursing report she is 84% in triage. No she is taking iron infusions REVIEW OF SYSTEMS: Pertinent positives: Shortness of breath Pertinent negatives: Chest pain, syncope PHYSICAL EXAM: Nursing triage notes reviewed, Vital signs reviewed Constitutional: please see mdm HENT: MMM Eyes: Pupils equal round and reactive to light, Extraocular muscles intact Neck: No stridor, no JVD, full neck ROM Lungs: Diminished breath sounds, coarse breath sounds noted bilaterally, increased work of breathing, respiratory distress, conversational dyspnea, slight wheezing noted bilaterally Heart: Regular rate and rhythm, No murmurs, No rubs and No gallops, 2+ distal pulses (radial, femoral, posterior tibial) in all extremities Abdomen: Soft, there is no tenderness, rigidity, rebound or guarding, no obvious peritoneal signs, no palpable pulsatile abdominal masses, no auscultated abdominal bruit : No CVAT Extremities: No edema Neuro: No focal neurological deficits, cranial nerves II through XII intact, 5/5 strength in all extremities. Intact sensation to light touch in all extremities, 2+ reflexes bilateral patella tendons. Normal gait. No ataxia. Skin: No rash or lesions noted MEDICAL DECISION MAKING: Chief Complaint: Shortness of breath External records reviewed: Prior pacemaker check reviewed from November 2023 Factors affecting care: CAD, sick sinus syndrome, status post pacemaker, A-fib on Xarelto, hypertension, hyperlipidemia, pulmonary artery hypertension Social determinants of health: elderly History obtained from others: none Consults: internal medicine, critical care Dr. Vo [facility] Narrative: Patient was initially hypoxic, tachypneic, afebrile. Patient initially was in respiratory distress and increased work of breathing is hypoxic cleared with started high flow nasal cannula by respiratory therapy. My evaluation she continued to have increased work of breathing though oxygenation improved. After breathing treatment patient continued to have increased work of breathing so she was placed on BiPAP at 14/8 which improved her respiratory rate and work of breathing. I immediately chest give her breathing treatment and to assess respiratory rate and work of breathing afterwards. I considered the following differential diagnosis: PNA, CHF, ACS, arrythmia, PE, viral infection ALL IMAGES (IF OBTAINED) HAVE BEEN PERSONALLY REVIEWED AND INTERPRETED BY MYSELF. EKG with ventricular paced rhythm, left axis deviation, prolonged QT interval, no obvious ischemic changes Lactate is wnl indicating no end-organ hypoperfusion and/or hypoxia. High-sensitivity troponin is negative, no evidence of myocardial ischemia High-sensitivity troponin is negative, no evidence of myocardial ischemia COVID flu RSV negative BNP elevated consistent with volume overload Chest x-ray shows evidence of volume overload CBC with no leukocytosis to suggest some inflammation, noted mild anemia, no thrombocytopenia CMP without significant electrolyte disturbances, no evidence of endorgan hypoperfusion or metabolic acidosis, noted baseline CKD LFTs show no evidence of hepatobiliary pathology. Patient's initial lab and imaging evaluations likely consistent with CHF. Did add on ABG and CTA of the chest rule out PE and signs of respiratory acidosis. CT of the chest showed no evidence of PE but shows volume overload. ABG without evidence of respiratory acidosis. Patient improved on BiPAP and was able to be placed on high flow nasal cannula. She is admitted to the ICU for ongoing diuresis The patient and/or family, caregivers express understanding. The patient and/or family, caregivers agrees with the plan. Shared decision making: I will have a discussion with the patient and or visitors regarding risk/benefits of further testing or admission. They will be made aware of of the risk/benefits inherent in this decision they will be given the opportunity to voice understanding. Total critical care time today provided was at least 60 minutes. This excludes separately billable procedures. Critical care time (if documented) is secondary to the patient having high probability of clinically significant/life threatening deterioration in the patient's condition which required my urgent intervention. Impression: 1. Hypoxia 2. Respiratory failure Dispo: Admit to ICU This note was generated with [employer] dictation software. It may contain incorrect words, spelling, and punctuation that were not noted in review of the chart prior to signing. Lab Data Labs: Laboratory Results - last 24 hr 12/14/23 12/14/23 10:40 13:35 WBC 10.8 RBC 4.12 L Hgb 10.5 L Hct 36.5 L MCV 88.6 MCH 25.5 L MCHC 28.8 L RDW Std Deviation 61.0 H RDW Coeff of Jose Alberto 20.5 H Plt Count 400 MPV 9.7 Immature Gran % (Auto) 0.500 Neut % (Auto) 80.1 H Lymph % (Auto) 8.5 L [place] % (Auto) 9.0 Eos % (Auto) 1.5 Baso % (Auto) 0.4 Absolute Neuts (auto) 8.6 H Absolute Lymphs (auto) 0.92 Nucleated RBC % 0 Anisocytosis 1+ Sodium 133 L Potassium 3.5 Chloride 100 Carbon Dioxide 25.0 Anion Gap 8 BUN 19 H Creatinine 1.56 H Estim Creat Clear Calc 19.36 Est GFR (MDRD) Af Amer 41 L Est GFR (MDRD) Non-Af 34 L BUN/Creatinine Ratio 12.2 Glucose 190 H Lactic Acid 1.9 Calcium 9.6 Total Bilirubin 0.70 AST 19 ALT 16 Alkaline Phosphatase 151 H Troponin I High Sens 11 12 B-Natriuretic Peptide 275.1 H Total Protein 8.8 H Albumin 3.5 Globulin 5.3 H Albumin/Globulin Ratio 0.7 L ABG Data ABG results: ABG 12/14/23 13:02 Specimen Type ART Sample Site L Radial pH 7.43 Bicarbonate Actual 22.5 Total CO2 24 Base Excess -2 O2 Saturation 94 L O2 % 45.0 ABG pCO2 33.9 L ABG pO2 66 L O2 Delivery Device Not entered Vent Mode Not entered POC PEEP 8 Radiography Diagnostic Testing: Clinical Impression(s) from Imaging Studies Chest X-Ray 12/14/23 11:10 IMPRESSION: CHF. Findings suggestive of bibasilar atelectasis more prominent at the left lung base. Electronically Signed: Bello Lozoya MD at 12:15 EDT , Chest CTA 12/14/23 12:28 IMPRESSION: No evidence of pleural embolism. Small bilateral pleural effusions with bibasilar infiltration and/or atelectasis and mild degree of vascular congestion. Linear atelectasis is seen in the lingular segment of the left upper lobe. Electronically Signed: Bello Lozoya MD at 13:29 EDT , Discharge Plan Triage Chief Complaint: Shortness of Breath ED Provider: Bernardo Judd Dx/Rx/DC Orders Primary Care Provider: Matt Rocha
--- NOTE | 2023-12-14 10:52 | EKG12_ITS ---
Test Reason : SOB Blood Pressure : / mmHG Vent. Rate : 091 BPM Atrial Rate : 075 BPM P-R Int : 000 ms QRS Dur : 174 ms QT Int : 454 ms P-R-T Axes : 000 -75 104 degrees QTc Int : 558 ms Ventricular-paced rhythm with occasional AV dual-paced complexes Abnormal ECG Confirmed by KYUNG MORRISON, DICKSON ([id number]), publications editor MOISES LEW ([id number]) on 12/16/2023 2:18:20 PM Referred By: BREONNA PHYS Confirmed By:DICKSON TRACEY MD
[2023-12-14] MEDS: Ipratropium/Albuterol Sulfate 3 ML AMPUL.NEB INHALATION (11:08)
--- NOTE | 2023-12-14 11:10 | RAD_ITS ---
STUDY: X-RAY CHEST REASON FOR EXAM: Female, 83 years old. SOB TECHNIQUE: Single AP portable view of the chest. COMPARISON: Comparison is made with prior study dated December 04, 2022. FINDINGS: EKG electrodes are seen. Mild degree of CHF with bibasilar atelectasis more prominent at the left lung base. Blunting of the left costophrenic angle. There is borderline cardiomegaly. A left-sided dual chamber pacemaker is seen. Normal mediastinum and radha. Normal visualized pulmonary arteries. There is atherosclerotic calcification of the aortic arch with tortuosity. There are diffuse degenerative changes of the visualized thoracic spine. Normal visualized ribs, clavicles, and shoulders. There is no demonstrated abnormality of the visualized soft tissue structures of the upper abdomen. RAD/Chest 1 View (Portable) IMPRESSION: CHF. Findings suggestive of bibasilar atelectasis more prominent at the left lung base. Electronically Signed: Bello Lozoya MD at 12:15 EDT ,
[2023-12-14 11:14] LABS: Absolute Lymphocyte Count 0.92 X10^3/uL (0.83-4.51); Absolute Neutrophil Count 8.6 X10^3/uL (2.0-7.7); Basophil# 0.04 X10^3/uL; Basophil% 0.4 % (0-1); Eosinophil# 0.16 X10^3/uL; Eosinophils% 1.5 % (0-5); Hematocrit 36.5 % (37-47); Hemoglobin 10.5 g/dL (12.0-15.0); Lymphocyte # 0.92 X10^3/ul (0.83-4.51); Lymphocyte % 8.5 % (19-41); Mean Corp Hgb Conc 28.8 g/dL (32-36); Mean Corpuscular Hgb 25.5 pg (27.0-32.0); Mean Corpuscular Volume 88.6 fL (81-99); Mean Platelet Vol. 9.7 fl (6.2-12.0); Monocyte# 0.97 X10^3/uL; NRBC Flagged by Analyzer 0 % (0-5); Neutrophil # 8.63 X10^3/uL (2.7-7.7); Neutrophil % 80.1 % (47-70); POSITIVE MORPHOLOGY YES; Platelet Count 400 K/mm3 (150-450); RBC Distribution Width CV 20.5 % (11.6-14.6); Red Blood Count 4.12 M/mm3 (4.2-5.4); White Blood Count 10.8 K/mm3 (4.4-11.0)
[2023-12-14 11:16] LABS: Differential Indicated SCAN CRITERIA MET
[2023-12-14 11:31] LABS: ALB/GLOB Ratio 0.7 RATIO (0.9-2.4); AST(SGOT) 19 U/L (15-37); Alanine Aminotransfer ALT/SGPT 16 U/L (13-56); Albumin, Serum 3.5 g/dL (3.2-5.0); Alkaline Phosphatase 151 U/L (45-117); Anion Gap 8 (5-15); BUN 19 mg/dL (7-18); BUN/Creat Ratio 12.2 RATIO (10-20); Calcium,Total 9.6 mg/dL (8.5-10.1); Chloride 100 mmol/L (98-107); Creatinine, Serum 1.56 mg/dL (0.55-1.02); EST Glomerular Filtration Rate 34 mL/min (>60); Est Glom Filt Rate - Afr Amer 41 mL/min (>60); Estimated Creatinine Clearance 19.36 ml/min; Globulin 5.3 g/dL (2.2-4.2); Glucose 190 mg/dL (74-106); Potassium 3.5 mmol/L (3.5-5.1); Protein, Total 8.8 g/dL (6.4-8.2); Sodium Level 133 mmol/L (136-145); Troponin-I HS (w/2H Reflex) 11 pg/mL (3.0-54.0)
[2023-12-14 11:32] LABS: Lactic Acid 1.9 mmol/L (0.4-1.9)
[2023-12-14 11:46] LABS: Anisocytosis 1+
[2023-12-14 12:15] LABS: BNP,B-Type NATRIURETIC PEPTIDE 275.1 pg/mL (0-100)
--- NOTE | 2023-12-14 12:28 | CT_ITS ---
STUDY: CTA CHEST REASON FOR EXAM: Female, 83 years old. SOB RADIATION DOSAGE (If Supplied By Facility): CTDIvol = ( 12.33 ) mGy, DLP = ( 543.65 ) mGycm TECHNIQUE: The examination was performed with the intravenous administration of IV 100mL [id number]. Post-processing of the angiographic images was performed, with multiplanar reformation and 3D reconstruction. Individualized dose optimization techniques were used for this CT. COMPARISON: Comparison is made with prior chest radiograph done earlier today. FINDINGS: Normal enhancement of the main pulmonary artery and right and left pulmonary arteries. Normal enhancement of the bilateral peripheral pulmonary arteries. There is no demonstrated pulmonary embolism. There is atherosclerotic calcification of the aortic arch with tortuosity. There is no demonstrated aortic dissection. There are calcifications of the coronary arteries. A dual-chamber pacemaker is seen. Normal mediastinum. Normal hilar regions. Normal visualized trachea and bronchi. The lungs are well expanded. Small bilateral pleural effusions with bibasilar atelectasis and/or infiltrates. Mild degree of increased interstitial markings suggesting mild CHF. Linear atelectasis and/or scarring in the lingular segment of the left upper lobe. Normal chest wall structures. Complete collapse of the T11 vertebrae. Loss of height of a mid dorsal vertebrae. Normal visualized upper abdomen. CT/CTA Chest W/WO Contrast IMPRESSION: No evidence of pleural embolism. Small bilateral pleural effusions with bibasilar infiltration and/or atelectasis and mild degree of vascular congestion. Linear atelectasis is seen in the lingular segment of the left upper lobe. Electronically Signed: Bello Lozoya MD at 13:29 EDT ,
[2023-12-14] MEDS: Furosemide 40 MG/4 ML Vial IV (12:32)
[2023-12-14 13:07] LABS: Base Excess -2 mmol/L (-2 to +2); Bicarbonate 22.5 mmol/L (22-26); Blood Gas Specimen Type ART; Mode Not entered; O2 Delivery Device Not entered; PEEP 8; PO2 66 mmHG (75-100); SITE L Radial; SO2 94 % (95-99); Total Carbon Dioxide 24 mmol/L; pCO2 33.9 mmHg (35-45); pH 7.43 (7.35-7.45)
[2023-12-14 13:08] LABS: Reflex Troponin-HS? (from REC) Y
--- NOTE | 2023-12-14 13:57 | HP.PCM_ITS ---
HPI - General General Date of Admission: 12/14/23 Date of Service: 12/14/23 Chief Complaint: shortness HPI Narrative ANTONIO GUPTA, is a 83 F with a PMH as outlined who presents via the ED on 12/14/2023 with a complaint of shortness of breath. She said her shortness of breath had been going on for about 6 weeks before presentation but acutely worsened the day before admission. She went to see her gopherman and was told to come to the ED. She denied any coughing, chest pain, palpitations, dizziness, nausea, vomiting or diarrhea or any other symptoms. Her shortness of breath gradually worsened. She was tachypneic and required high flow oxygen. She denied any cough, chest pain, palpitations, dizziness, nausea, vomiting or any other symptoms. Vitals in the ED were BP of 143/72, PA of 90, RR of 20 and oxygen sats of 95% on 12L of oxygen. CBC showed hb of 10.5, wbc of 10.8, platelets of 400. CHemistry showed sodium of 133, potassium of 3.5, bicarb of 25 and Cr of 1.56. BNP is 275 and initial troponin is negative. CXR showed findings suggestive of bibasilar atelectasis more prominent at the left lung base, CTA showed no evidence of PE and showed small bilateral pleural effusion with bibasilar infiltration and/or atelectasis and mild degree of vascular congestion. EKG showed no acute ST changes. She is being admitted to be managed for acute exacerbation of heart failure. [facility] Medical History Anxiety Atherosclerosis of coronary artery of [place] heart without angina pectoris Essential (primary) hypertension History of non-ST elevation myocardial infarction (NSTEMI) (2013) Hyperlipidemia Hypothyroidism Iron deficiency anemia Longstanding persistent atrial fibrillation Paroxysmal atrial fibrillation Paroxysmal atrial flutter Secondary pulmonary arterial hypertension Sick sinus syndrome Home Medications ?Medication ?Instructions ?Recorded ?Last Taken ?Type buspirone 15 mg tablet 15 mg PO BID ANXIETY 06/02/13 Unknown History omeprazole 40 mg capsule,delayed 40 mg PO DAILY ACID REFLUX 06/02/13 09/15/16 08:30 History release nitroglycerin 0.4 mg sublingual 0.4 mg sublingual Q5M PRN CHEST 04/21/15 Unknown History tablet PAIN glimepiride 4 mg tablet 4 mg PO DAILY DIABETES 01/24/22 Unknown History acetaminophen 500 mg capsule 1,000 mg PO Q4H PRN PAIN 02/17/23 Unknown History amitriptyline 50 mg tablet 50 mg PO QHS DEPRESSION 02/17/23 Unknown History empagliflozin 10 mg tablet 10 mg PO DAILY DIABETES 02/17/23 Unknown History (Jardiance) ketotifen fumarate 0.025 % (0.035 1 drp ophthalmic (eye) BID 02/17/23 Unknown History %) eye drops ([place]) ITCHING/ALLERGIES amlodipine 10 mg tablet 10 mg PO DAILY BLOOD PRESSURE 12/14/23 Unknown History hydrochlorothiazide 12.5 mg tablet 12.5 mg PO DAILY BLOOD PRESSURE 12/14/23 Unknown History levothyroxine 100 mcg tablet 100 mcg PO DAILY THYROID 12/14/23 Unknown History (Synthroid) losartan 100 mg tablet 100 mg PO DAILY BLOOD PRESSURE 12/14/23 Unknown History metoprolol succinate 25 mg 25 mg PO DAILY BLOOD PRESSURE 12/14/23 Unknown History tablet,extended release 24 hr rivaroxaban 20 mg tablet (Xarelto) 20 mg PO DAILY BLOOD THINNER 12/14/23 Unknown History simvastatin 20 mg tablet 20 mg PO QHS CHOLESTEROL 12/14/23 Unknown History tizanidine 4 mg tablet 4 mg PO Q8H PRN MUSCLE SPASMS 12/14/23 Unknown History Allergy/AdvReac Type Severity Reaction Status Date / Time poison fany extract (Poison Allergy Rash Verified 12/14/23 10:43 Fany Extract) Sulfa (Sulfonamide Allergy Hives Verified 12/14/23 10:43 Antibiotics) Family History Mother Cancer Father Cancer Brother CAD (coronary artery disease) Sister CAD (coronary artery disease) Surgical History History of appendectomy History of coronary artery stent placement (09/2010) History of hysterectomy History of left heart catheterization (10/09/13) History of tubal ligation Hx of atrioventricular node ablation (03/31/16) Presence of cardiac pacemaker (04/26/15) Social History Smoking Status: Former smoker how long ago did patient quit smokin's alcohol intake: never substance use type: does not use caffeine: Yes Type: coffee Number of servings: 3 ROS Constitutional Constitutional: Denies anorexia, chills, fatigue, fever(s) or weakness Eyes Eyes: Denies change in vision ENT HEENT: Denies dysphagia, headache(s), sore throat or throat swelling Cardiovascular Cardiovascular: Denies chest pain, edema, orthopnea, palpitations or syncope Respiratory/Chest Respiratory/Chest: Reports shortness of breath at rest and shortness of breath with exertion; Denies cough Gastrointestinal Gastrointestinal: Denies constipation, diarrhea, melena, nausea or vomiting Genitourinary Genitourinary: Denies dysuria Musculoskeletal Musculoskeletal: Denies muscle weakness Neurologic Neurologic: Denies confusion, dizziness, focal weakness, headache(s), lack of coordination, numbness or seizures Psychiatric Psychiatric: Denies anxiety or depression Vital Signs Vital Signs Vital Signs: 12/14/23 10:41 12/14/23 10:41 12/14/23 10:45 Temperature 95.8 F L 97.6 F L Temperature Source Temporal Temporal Pulse Rate 91 91 Respiratory Rate 34 H 30 H Respiratory Effort Respiratory Depth Respiratory Pattern Blood Pressure 155/72 H 155/72 H Blood Pressure Mean 99 99 Pulse Ox 84 91 92 Oxygen Delivery Method Room Air Nasal Cannula Nasal Cannula Oxygen Flow Rate (L/min) 5 6 Fraction of Inspired Oxygen (FIO2) 12/14/23 10:45 12/14/23 11:10 12/14/23 11:40 Temperature Temperature Source Pulse Rate 93 90 Respiratory Rate 37 H 22 H Respiratory Effort Short of Breath Labored Respiratory Depth Shallow Respiratory Pattern Tachypnea Tachypnea Blood Pressure 135/78 H Blood Pressure Mean 97 Pulse Ox 94 Oxygen Delivery Method Nasal Cannula High Flow Oxygen Flow Rate (L/min) 10 10 Fraction of Inspired Oxygen (FIO2) 12/14/23 11:45 12/14/23 12:00 12/14/23 12:06 Temperature 97.8 F 98.9 F Temperature Source Temporal Temporal Pulse Rate 91 91 91 Respiratory Rate 22 H 21 H 27 H Respiratory Effort Respiratory Depth Respiratory Pattern Tachypnea Blood Pressure 148/72 H 136/64 H Blood Pressure Mean 97 88 Pulse Ox 90 97 96 Oxygen Delivery Method Bi-pap Room Air Oxygen Flow Rate (L/min) Fraction of Inspired Oxygen (FIO2) 45 12/14/23 13:00 12/14/23 13:00 12/14/23 13:21 Temperature 98.7 F Temperature Source Temporal Pulse Rate 90 91 90 Respiratory Rate 25 H 22 H 22 H Respiratory Effort Respiratory Depth Respiratory Pattern Blood Pressure 147/75 H 136/86 H 134/71 H Blood Pressure Mean 99 102 92 Pulse Ox 94 97 93 Oxygen Delivery Method Bi-pap High Flow Oxygen Flow Rate (L/min) Fraction of Inspired Oxygen (FIO2) Weight Weight: 100 lb 11.2 oz Body Mass Index (BMI) 15.3 Physical Exam Const alert, oriented x3 and no apparent distress General Appearance: cooperative HEENT head/scalp atraumatic, moist oral mucous membranes and oropharynx normal Eyes PERRL and EOMs intact bilaterally Neck no lymphadenopathy, supple and no JVD Lymph Lymphatic: no lymphadenopathy noted and no lymphedema noted Resp Resp Narrative: moderately diminished breath sounds bibasally, no wheezes, few crackles. On 12L of oxygen by nasal canula Effort and Inspection: tachypneic and respiratory distress Cardio regular rate, regular rhythm, S1 normal heart sound, S2 normal heart sound and no murmurs GI normal to inspection, nondistended, normoactive bowel sounds, soft to palpation, non-tender and non-distended Extremity normal capillary refill, no clubbing, cyanosis or edema and no calf tenderness General Extremity: no tenderness to palpation of joints or extremities Neuro CN's II-XII intact bilaterally, no focal motor deficits, no sensory deficits noted and deep tendon reflexes 2+ bilaterally Motor Exam: strength 5/5 throughout and general weakness Psych thought process normal and cooperative Appearance: appropriate Results Lab / Micro Data 12/14/23 10:40 12/14/23 10:40 Labs: Laboratory Results - last 24 hr 12/14/23 10:40: WBC 10.8, RBC 4.12 L, Hgb 10.5 L, Hct 36.5 L, MCV 88.6, MCH 25.5 L, MCHC 28.8 L, RDW Std Deviation 61.0 H, RDW Coeff of Jose Alberto 20.5 H, Plt Count 400, MPV 9.7, Immature Gran % (Auto) 0.500, Neut % (Auto) 80.1 H, Lymph % (Auto) 8.5 L, Richardson % (Auto) 9.0, Eos % (Auto) 1.5, Baso % (Auto) 0.4, Absolute Neuts (auto) 8.6 H, Absolute Lymphs (auto) 0.92, Nucleated RBC % 0, Anisocytosis 1+, S odium 133 L, Potassium 3.5, Chloride 100, Carbon Dioxide 25.0, Anion Gap 8, BUN 19 H, Creatinine 1.56 H, Estim Creat Clear Calc 19.36, Est GFR (MDRD) Af Amer 41 L, Est GFR (MDRD) Non-Af 34 L, BUN/Creatinine Ratio 12.2, Glucose 190 H, Lactic Acid 1.9, Calcium 9.6, Total Bilirubin 0.70, AST 19, ALT 16, Alkaline Phosphatase 151 H, Troponin I High Sens 11, B-Natriuretic Peptide 275.1 H, Total Protein 8.8 H, Albumin 3.5, Globulin 5.3 H, Albumin/Globulin Ratio 0.7 L Micro: Microbiology 12/14/23 10:40 Mucosa - Nasopharyngeal SARS-CoV-2, Influenza & RSV (PCR) - Final ABG Data ABG results: ABG 12/14/23 13:02 Specimen Type ART Sample Site L Radial pH 7.43 Bicarbonate Actual 22.5 Total CO2 24 Base Excess -2 O2 Saturation 94 L O2 % 45.0 ABG pCO2 33.9 L ABG pO2 66 L O2 Delivery Device Not entered Vent Mode Not entered POC PEEP 8 Imaging Radiology Impression Chest X-Ray 12/14/23 11:10 IMPRESSION: CHF. Findings suggestive of bibasilar atelectasis more prominent at the left lung base. Electronically Signed: Bello Lozoya MD at 12:15 EDT , Chest CTA 12/14/23 12:28 IMPRESSION: No evidence of pleural embolism. Small bilateral pleural effusions with bibasilar infiltration and/or atelectasis and mild degree of vascular congestion. Linear atelectasis is seen in the lingular segment of the left upper lobe. Electronically Signed: Bello Lozoya MD at 13:29 EDT , Assessment & Plan Assessment/Plan (1) Heart failure: PLAN: Plan #Acute hypoxic respiratory failure due to acute exacerbation of HFpEF * admit to ICU * patient now on 12L of oxygen; was placed on BIPAP in the ED but now on 12L of oxygen * CTA showed no evidence of PE but showed small bilateral pleural effusions with bibasilar infiltrates and/or atelectasis and mild degree of vascular congestion. * has known stage III diastolic dysfunction and normal LV systolic function; left atrium is moderately enlarged and PA systolic pressure is 43mmhg from echo fromo 03/17/2023 * diurese IV lasix drip * consult critical care. * get 2D echo * monitor intake and output * fluid restriction to 1500cc daily * titrate oxygen to maintain sats >90% * low threshold to place on BIPAP. Patient agreeable to being intubated if needed. * If patient does not improve with diuresis, consult cardiology. #Hypertension; on amlodipine, losartan and metoprolol. Hold HCTZ. #TYpe 2 diabetes mellitus: on amlodipine, jardiance and glimepiride. ISS. Accuchecks ACHS #Hyperlipidemia: on statin. #Afib: on xarelto and metoprolol #CKD stage III: Creatinine is 1.56 with a baseline of around 1.3. Creatinine may trend upwards with Lasix drip. Will monitor. DVT prophylaxis: on xarelto COde status: full code. * Patient counseled extensively about different types of CODE STATUS including full code, DNR CCA and DNR CCA. Patient elects to be full code. * Total [id number] time 17 minutes. * Total time spent on evaluation and management of patient, reviewing chart, discussing plan with patient and as well as ddauhter, discussion with nursing and ancillary staff as well as documentation: 77 mins Charges/Coding Visit Charges Inpatient E&M: 75494 Init Hosp L3 Procedures Hospitalists Procedures: 53708 Critical Care 1st Hr (advanced care plan: [id number])
[2023-12-14 14:01] LABS: Troponin-I HS 12 pg/mL (3.0-54.0)
--- NOTE | 2023-12-14 15:49 | ED.RN ---
Report called to COAL CARRIERNIYA Magdaleno.
--- NOTE | 2023-12-14 16:03 | ECHOD_ITS ---
Reason For Study: DYSPNEA/SOB Procedure This was a 2D Doppler, Color Flow transthoracic echocardiogram. Exam performed portable in ICU/CCU. Left Ventricle Normal LV size. Left ventricular systolic function is normal. The left ventricular ejection fraction is 55 %. No regional wall motion abnormalities noted. Right Ventricle Normal RV size. ICD or pacer leads identified within the right ventricle. Normal systolic function. Atria The left atrium is severely enlarged. The right atrium is severely enlarged. Mitral Valve There is mild to moderate mitral annular calcification. Mild (1+) eccentric mitral valve insufficiency. Tricuspid Valve Normal tricuspid valve. Moderate (2+) tricuspid valve insufficiency. Pulmonary artery systolic pressure is 50 mmHg. Mild pulmonary hypertension. Aortic Valve Trisinus/trileaflet aortic valve. Mild (1+) aortic valve insufficiency. Pulmonic Valve Normal pulmonic valve. Great Vessels Normal aortic root. The pulmonary artery is normal size. Normal inferior vena cava. Pericardium/Pleural No pericardial effusion. MMode/2D Measurements & Calculations LVIDd: 4.5 cm IVSd: 1.4 cm Ao root diam: 3.4 cm LVIDs: 2.6 cm LVPWd: 1.1 cm RVDd: 3.4 cm FS: 41.7 % LAV(MOD-bp): 111.1 ml LVAd ap4: 21.0 cm2 SV(MOD-sp4): 32.7 ml LAV(MOD-bp) Indexed: 79.9 ml/m2 LVLd ap4: 7.1 cm LAV(MOD-sp2): 108.0 ml EDV(MOD-sp4): 54.2 ml LAV(MOD-sp4): 106.4 ml EDV(sp4-el): 52.8 ml LVAs ap4: 13.0 cm2 LVLs ap4: 6.5 cm ESV(MOD-sp4): 21.5 ml ESV(sp4-el): 22.3 ml EF(MOD-sp4): 60.3 % EF(sp4-el): 57.8 % SV(sp4-el): 30.5 ml LA A4 area: 30.1 cm2 LA dimension(2D): 5.8 cm RA A4 area: 29.7 cm2 TAPSE: 1.6 cm Doppler Measurements & Calculations MV E max eleuterio: 142.1 cm/sec Lat Peak E' Eleuterio: 5.3 cm/sec Med Peak E' Eleuterio: 6.4 cm/sec E/E' lat: 26.6 E/E' med: 22.2 MV V2 max: 158.4 cm/sec Ao V2 max: 141.8 cm/sec AI max eleuterio: 370.7 cm/sec MV max P.0 mmHg Ao max P.1 mmHg AI max P.0 mmHg MV V2 mean: 83.4 cm/sec Ao V2 mean: 98.1 cm/sec MV mean P.5 mmHg Ao mean P.5 mmHg AI dec slope: 327.4 cm/sec2 MV V2 VTI: 33.2 cm Ao V2 VTI: 28.2 cm AI P1/2t: 331.6 msec AV (velocity ratio): 0.75 LV V1 max: 115.6 cm/sec PA V2 max: 115.6 cm/sec TR max eleuterio: 325.8 cm/sec LV V1 max P.4 mmHg PA V2 mean: 76.7 cm/sec TR max P.5 mmHg LV V1 mean P.4 mmHg LV V1 mean: 86.3 cm/sec LV V1 VTI: 21.1 cm ECHO/Echo Complete Interpretation Summary Normal LV size. Left ventricular systolic function is normal. The left ventricular ejection fraction is 55 %. Pulmonary artery systolic pressure is 50 mmHg. The left atrium is severely enlarged. The right atrium is severely enlarged. Ordering Physician: Joanne Vo Referring Physician: Matt Rocha Performed By: Robyn Aviles RDCS, RVT
[2023-12-14] MEDS: Furosemide 500 MG in Empty Viaflex 50 mL 1 EACH CONT INF (16:44)
[2023-12-14 17:10] LABS: Troponin-I HS 11 pg/mL (3.0-54.0)
[2023-12-14 17:12] LABS: Bedside Glucose 124 mg/dL (74-106)
[2023-12-14] MEDS: busPIRone 15 MG TABLET PO (20:25)
[2023-12-14] MEDS: tiZANidine HCl 2 MG Tablet 4 MG PO (20:25)
[2023-12-14] MEDS: Amitriptyline 25 MG Tablet 50 MG PO (20:25)
[2023-12-14] MEDS: Atorvastatin Calcium 10 MG Tablet PO (20:26)
[2023-12-14] MEDS: Insulin Lispro 100 UNIT/ML INSULN.PEN SC (20:28)
[2023-12-14 20:44] LABS: Bedside Glucose 172 mg/dL (74-106)
[2023-12-14] MEDS: Albumin Human 25% (100 mL) 25 GM/100 ML BAG IV (22:44)
[2023-12-15] VITALS (28 sets, daily range): BP systolic 83–137; BP diastolic 41–65; PULSE 87–91; RESP 12–27; TEMP 36.4–36.9; O2SAT 90–98
[2023-12-15] MEDS: Albumin Human 25% (100 mL) 25 GM/100 ML BAG IV (01:03)
[2023-12-15 04:12] LABS: Absolute Lymphocyte Count 1.02 X10^3/uL (0.83-4.51); Absolute Neutrophil Count 5.7 X10^3/uL (2.0-7.7); Basophil# 0.03 X10^3/uL; Basophil% 0.4 % (0-1); Eosinophil# 0.19 X10^3/uL; Eosinophils% 2.4 % (0-5); Hematocrit 30.5 % (37-47); Hemoglobin 8.9 g/dL (12.0-15.0); Lymphocyte # 1.02 X10^3/ul (0.83-4.51); Lymphocyte % 13.1 % (19-41); Mean Corp Hgb Conc 29.2 g/dL (32-36); Mean Corpuscular Hgb 25.6 pg (27.0-32.0); Mean Corpuscular Volume 87.9 fL (81-99); Mean Platelet Vol. 9.5 fl (6.2-12.0); Monocyte# 0.79 X10^3/uL; Monocyte% 10.2 % (0-10); NRBC Flagged by Analyzer 0 % (0-5); Neutrophil # 5.71 X10^3/uL (2.7-7.7); Neutrophil % 73.5 % (47-70); POSITIVE MORPHOLOGY YES; Platelet Count 312 K/mm3 (150-450); RBC Distribution Width CV 20.5 % (11.6-14.6); RBC Distribution Width SD 61.5 fl (35.1-43.9); Red Blood Count 3.47 M/mm3 (4.2-5.4); White Blood Count 7.8 K/mm3 (4.4-11.0)
[2023-12-15 04:17] LABS: Differential Indicated SCAN CRITERIA MET
[2023-12-15 04:26] LABS: Anion Gap 8 (5-15); BUN 20 mg/dL (7-18); Calcium,Total 9.1 mg/dL (8.5-10.1); Chloride 99 mmol/L (98-107); Creatinine, Serum 1.66 mg/dL (0.55-1.02); EST Glomerular Filtration Rate 31 mL/min (>60); Est Glom Filt Rate - Afr Amer 38 mL/min (>60); Estimated Creatinine Clearance 30.54 ml/min; Glucose 117 mg/dL (74-106); Potassium 3.1 mmol/L (3.5-5.1); Sodium Level 137 mmol/L (136-145)
[2023-12-15] MEDS: 0.9% Saline Lock 10 ML Syringe IV (05:25)
[2023-12-15] MEDS: Levothyroxine 100 MCG Tablet PO (05:25)
--- NOTE | 2023-12-15 07:00 | CON.PCM.CC_ITS ---
Assessment & Plan Assessment/Plan (1) Acute hypoxemic respiratory failure: PLAN: Plan RECOMMENDATIONS: 1. Continue ongoing attempts at diuresis as tolerated by hemodynamics and renal function. 2. Repeat echocardiogram is pending. 3. Recommend device interrogation. Obtain cardiology consultation. 4. Send type and screen. Transfuse if hemoglobin drops below 7 g/dL. 5. Check stool for occult blood. 6. Hold Xarelto for now. IMPRESSIONS: 1. Acute hypoxemic respiratory failure The patient initially presented with progressive exertional shortness of breath. She was initially admitted over concerns for an exacerbation of her underlying heart failure with preserved ejection fraction. The patient does have a known history of paroxysmal atrial fibrillation status post pacemaker placement along with coronary artery disease status post angioplasty and stenting. She is currently followed in the cardiology clinic on an outpatient basis. She has no pre-existing lung conditions. CTA chest showed no evidence for pulmonary embolism. The patient was ultimately admitted to the hospital and placed on a continuous Lasix infusion. In addition to the aforementioned, the patient appears to have worsening anemia, with a hemoglobin that was previously noted to be around 12 to 13 g/dL. This morning, the patient's hemoglobin is dropped to 8.9 g/dL. Her progressive anemia may also be contributing to her exertional dyspnea. Accordingly, we will plan to send a type and screen. Plan to transfuse if hemoglobin drops below 7 g/dL. In the interim, a repeat echocardiogram is pending. Cardiology consultation will be obtained. 2. Anemia The patient has demonstrated worsening anemia since February 2023. This morning, the patient's hemoglobin was noted to be 8.9 g/dL. Plan to send type and screen. Recommend transfusing if hemoglobin drops below 7 g/dL. The patient is already on PPI therapy, which will be continued. If her anemia worsens, recommend cardiology consultation. Will check stool for occult blood. Recommend holding Xarelto for now. 3. Paroxysmal atrial fibrillation/coronary artery disease/hypertension/hyperlipidemia/diabetes mellitus/chronic kidney disease Complicates care, management, recovery and prognosis. Recommend holding Xarelto for now given anemia. Continue remainder of supportive care as noted above. This note was generated with [employer] software. It may contain incorrect words, spelling, and punctuation that were not noted in checking the note before signing. HPI Consult Data Date of Consult: 12/15/23 HPI Narrative Reason for Consultation: Acute hypoxemic respiratory failure HPI Narrative: The patient is an 83-year-old female, with a history as outlined below, who presented to the emergency department on December 13 with progressive exertional dyspnea. The patient reported that she had been experiencing shortness of breath over the course of the last several weeks, but that her symptoms apparently worsened the day prior to her hospitalization. The patient has never been diagnosed with any pulmonary related conditions in the past. She does not utilize supplemental oxygen at her baseline. She has an extremely remote smoking history. She has never been diagnosed with obstructive sleep apnea. The patient is currently followed by Dr. Root of cardiology due to a history of coronary artery disease with angioplasty and stenting of the LAD and RCA in September 2010. She also has a history of paroxysmal atrial fibrillation with a pacemaker in place following AV isael ablation. Surface echocardiogram completed in March 2023 demonstrated stage III diastolic dysfunction with left atrial enlargement. On presentation to the emergency department, the patient was noted to have a blood pressure of 155/72 mmHg but was tachypneic with a respiratory rate in the 30s. She was hypoxemic, requiring supplemental oxygen. Initial laboratory evaluation revealed a normal white blood cell count. The patient was anemic with a presenting hemoglobin of 10.5 g/dL, which has dropped to 8.9 g/dL this morning. Chemistry profile was notable for a sodium of 133, BUN of 19 and creatinine of 1.56. BNP was only elevated at 275. CTA chest showed no evidence for PE but did demonstrate small bilateral pleural effusions with basilar atelectasis. COVID, influenza and RSV PCR's were negative. The patient was ultimately admitted to the medical intensive care unit, where she was placed on a continuous Lasix infusion. The patient did require transient BiPAP support overnight. [facility] Medical History Anxiety Atherosclerosis of coronary artery of [place] heart without angina pectoris Essential (primary) hypertension History of non-ST elevation myocardial infarction (NSTEMI) (2013) Hyperlipidemia Hypothyroidism Iron deficiency anemia Longstanding persistent atrial fibrillation Paroxysmal atrial fibrillation Paroxysmal atrial flutter Secondary pulmonary arterial hypertension Sick sinus syndrome Home Medications ?Medication ?Instructions ?Recorded ?Last Taken ?Type buspirone 15 mg tablet 15 mg PO BID ANXIETY 06/02/13 Unknown History omeprazole 40 mg capsule,delayed 40 mg PO DAILY ACID REFLUX 06/02/13 09/15/16 08:30 History release nitroglycerin 0.4 mg sublingual 0.4 mg sublingual Q5M PRN CHEST 04/21/15 Unknown History tablet PAIN glimepiride 4 mg tablet 4 mg PO DAILY DIABETES 01/24/22 Unknown History acetaminophen 500 mg capsule 1,000 mg PO Q4H PRN PAIN 02/17/23 Unknown History amitriptyline 50 mg tablet 50 mg PO QHS DEPRESSION 02/17/23 Unknown History empagliflozin 10 mg tablet 10 mg PO DAILY DIABETES 02/17/23 Unknown History (Jardiance) ketotifen fumarate 0.025 % (0.035 1 drp ophthalmic (eye) BID 02/17/23 Unknown History %) eye drops ([place]) ITCHING/ALLERGIES amlodipine 10 mg tablet 10 mg PO DAILY BLOOD PRESSURE 12/14/23 Unknown History hydrochlorothiazide 12.5 mg tablet 12.5 mg PO DAILY BLOOD PRESSURE 12/14/23 Unknown History levothyroxine 100 mcg tablet 100 mcg PO DAILY THYROID 12/14/23 Unknown History (Synthroid) losartan 100 mg tablet 100 mg PO DAILY BLOOD PRESSURE 12/14/23 Unknown History metoprolol succinate 25 mg 25 mg PO DAILY BLOOD PRESSURE 12/14/23 Unknown History tablet,extended release 24 hr rivaroxaban 20 mg tablet (Xarelto) 20 mg PO DAILY BLOOD THINNER 12/14/23 Unknown History simvastatin 20 mg tablet 20 mg PO QHS CHOLESTEROL 12/14/23 Unknown History tizanidine 4 mg tablet 4 mg PO Q8H PRN MUSCLE SPASMS 12/14/23 Unknown History Allergy/AdvReac Type Severity Reaction Status Date / Time poison fany extract (Poison Allergy Rash Verified 12/14/23 10:43 Fany Extract) Sulfa (Sulfonamide Allergy Hives Verified 12/14/23 10:43 Antibiotics) Family History Mother Cancer Father Cancer Brother CAD (coronary artery disease) Sister CAD (coronary artery disease) Surgical History History of appendectomy History of coronary artery stent placement (09/2010) History of hysterectomy History of left heart catheterization (10/09/13) History of tubal ligation Hx of atrioventricular node ablation (03/31/16) Presence of cardiac pacemaker (04/26/15) Social History Smoking Status: Former smoker how long ago did patient quit smokin's alcohol intake: never substance use type: does not use caffeine: Yes Type: coffee Number of servings: 3 ROS ROS Narrative 10 systems were reviewed with pertinent positives as noted in the HPI above. Physical Exam Const alert, oriented x3 and no apparent distress General Appearance: cooperative HEENT normocephalic, head/scalp atraumatic and moist oral mucous membranes Eyes PERRL, EOMs intact bilaterally and conjunctivae normal Neck supple General: trachea midline Chest inspection of chest normal Resp normal respiratory effort Auscultation: diminished lung sounds Cardio regular rate and regular rhythm GI normal to inspection, nondistended, normoactive bowel sounds Extremity no clubbing, cyanosis or edema Skin no rashes or lesions noted Neuro oriented x3, CN's II-XII intact bilaterally and moves all extremities Psych cooperative and affect normal Lab / Micro Data 12/15/23 04:08 12/15/23 04:08 Labs: Laboratory Results - last 24 hr 12/14/23 10:40: WBC 10.8, RBC 4.12 L, Hgb 10.5 L, Hct 36.5 L, MCV 88.6, MCH 25.5 L, MCHC 28.8 L, RDW Std Deviation 61.0 H, RDW Coeff of Jose Alberto 20.5 H, Plt Count 400, MPV 9.7, Immature Gran % (Auto) 0.500, Neut % (Auto) 80.1 H, Lymph % (Auto) 8.5 L, [place] % (Auto) 9.0, Eos % (Auto) 1.5, Baso % (Auto) 0.4, Absolute Neuts (auto) 8.6 H, Absolute Lymphs (auto) 0.92, Nucleated RBC % 0, Anisocytosis 1+, S odium 133 L, Potassium 3.5, Chloride 100, Carbon Dioxide 25.0, Anion Gap 8, BUN 19 H, Creatinine 1.56 H, Estim Creat Clear Calc 19.36, Est GFR (MDRD) Af Amer 41 L, Est GFR (MDRD) Non-Af 34 L, BUN/Creatinine Ratio 12.2, Glucose 190 H, Lactic Acid 1.9, Calcium 9.6, Total Bilirubin 0.70, AST 19, ALT 16, Alkaline Phosphatase 151 H, Troponin I High Sens 11, B-Natriuretic Peptide 275.1 H, Total Protein 8.8 H, Albumin 3.5, Globulin 5.3 H, Albumin/Globulin Ratio 0.7 L 12/14/23 13:35: Troponin I High Sens 12 12/14/23 16:35: Troponin I High Sens 11 12/14/23 16:40: POC Glucose 124 H 12/14/23 20:23: POC Glucose 172 H 12/15/23 04:08: WBC 7.8, RBC 3.47 L, Hgb 8.9 L, Hct 30.5 L, MCV 87.9, MCH 25.6 L , MCHC 29.2 L, RDW Std Deviation 61.5 H, RDW Coeff of Jose Alberto 20.5 H, Plt Count 312, MPV 9.5, Immature Gran % (Auto) 0.400, Neut % (Auto) 73.5 H, Lymph % (Auto) 13.1 L, [place] % (Auto) 10.2 H, Eos % (Auto) 2.4, Baso % (Auto) 0.4, Absolute Neuts (auto) 5.7, Absolute Lymphs (auto) 1.02, Nucleated RBC % 0, Sodium 137, P otassium 3.1 L, Chloride 99, Carbon Dioxide 30.0, Anion Gap 8, BUN 20 H, C reatinine 1.66 H, Estim Creat Clear Calc 30.54, Est GFR (MDRD) Af Amer 38 L, Est GFR (MDRD) Non-Af 31 L, BUN/Creatinine Ratio 12.0, Glucose 117 H, Calcium 9.1 Micro: Microbiology 12/14/23 10:40 Mucosa - Nasopharyngeal SARS-CoV-2, Influenza & RSV (PCR) - Final ABG Data ABG results: ABG 12/14/23 13:02 Specimen Type ART Sample Site L Radial pH 7.43 Bicarbonate Actual 22.5 Total CO2 24 Base Excess -2 O2 Saturation 94 L O2 % 45.0 ABG pCO2 33.9 L ABG pO2 66 L O2 Delivery Device Not entered Vent Mode Not entered POC PEEP 8 Imaging Radiology Impression Chest X-Ray 12/14/23 11:10 IMPRESSION: CHF. Findings suggestive of bibasilar atelectasis more prominent at the left lung base. Electronically Signed: Bello Lozoya MD at 12:15 EDT , Chest CTA 12/14/23 12:28 IMPRESSION: No evidence of pleural embolism. Small bilateral pleural effusions with bibasilar infiltration and/or atelectasis and mild degree of vascular congestion. Linear atelectasis is seen in the lingular segment of the left upper lobe. Electronically Signed: Bello Lozoya MD at 13:29 EDT , Charges/Coding Visit Charges Inpatient E&M: 51434 Init Hosp L3
[2023-12-15 07:07] LABS: Troponin-I HS 12 pg/mL (3.0-54.0)
--- NOTE | 2023-12-15 07:07 | PN.HOSP_ITS ---
Reason for Visit Reason for Visit: Diagnoses Heart failure, unspecified (12/14/23) Subjective Subjective Patient is an 83-year-old lady who presented with a 4-week history of progressive shortness of breath. Patient was found to be hypoxic with oxygen saturation 84% on room air on admission. An assessment of acute hypoxic respiratory failure secondary to acute congestive heart failure made placed on noninvasive ventilation BiPAP admitted to the intensive care unit for subsequent management Objective Data Objective Data Vital Signs: Vital Signs Temp Pulse Resp BP Pulse Ox O2 Del Method O2 Flow Rate 97.6 F L 91 24 H 129/60 H 94 High Flow 8 12/15/23 05:00 12/15/23 07:00 12/15/23 07:00 12/15/23 07:00 12/15/23 07:00 12/15/23 07:00 12/15/23 07:00 FiO2 50 12/15/23 05:00 Oxygen Flow Rate (L/min) 8 Oxygen Delivery Method High Flow Weight: 95.844 kg Body Mass Index (BMI) 32.1 Intake & Output: Intake and Output for Last 24 Hours 12/13/23 12/14/23 12/15/23 23:59 23:59 23:59 Intake Total 200 / 207.27 207.27 / 207.27 Output Total 1350 / 1350 1625 / 1625 Balance -1150 / -1142.73 -1417.73 / -1417.73 Lab / Micro Data 12/15/23 04:08 12/15/23 04:08 Labs: Laboratory Results - last 24 hr 12/14/23 10:40: WBC 10.8, RBC 4.12 L, Hgb 10.5 L, Hct 36.5 L, MCV 88.6, MCH 25.5 L, MCHC 28.8 L, RDW Std Deviation 61.0 H, RDW Coeff of Jose Alberto 20.5 H, Plt Count 400, MPV 9.7, Immature Gran % (Auto) 0.500, Neut % (Auto) 80.1 H, Lymph % (Auto) 8.5 L, [place] % (Auto) 9.0, Eos % (Auto) 1.5, Baso % (Auto) 0.4, Absolute Neuts (auto) 8.6 H, Absolute Lymphs (auto) 0.92, Nucleated RBC % 0, Anisocytosis 1+, S odium 133 L, Potassium 3.5, Chloride 100, Carbon Dioxide 25.0, Anion Gap 8, BUN 19 H, Creatinine 1.56 H, Estim Creat Clear Calc 19.36, Est GFR (MDRD) Af Amer 41 L, Est GFR (MDRD) Non-Af 34 L, BUN/Creatinine Ratio 12.2, Glucose 190 H, Lactic Acid 1.9, Calcium 9.6, Total Bilirubin 0.70, AST 19, ALT 16, Alkaline Phosphatase 151 H, Troponin I High Sens 11, B-Natriuretic Peptide 275.1 H, Total Protein 8.8 H, Albumin 3.5, Globulin 5.3 H, Albumin/Globulin Ratio 0.7 L 12/14/23 13:35: Troponin I High Sens 12 12/14/23 16:35: Troponin I High Sens 11 12/14/23 16:40: POC Glucose 124 H 12/14/23 20:23: POC Glucose 172 H 12/15/23 04:08: WBC 7.8, RBC 3.47 L, Hgb 8.9 L, Hct 30.5 L, MCV 87.9, MCH 25.6 L , MCHC 29.2 L, RDW Std Deviation 61.5 H, RDW Coeff of Jose Alberto 20.5 H, Plt Count 312, MPV 9.5, Immature Gran % (Auto) 0.400, Neut % (Auto) 73.5 H, Lymph % (Auto) 13.1 L, [place] % (Auto) 10.2 H, Eos % (Auto) 2.4, Baso % (Auto) 0.4, Absolute Neuts (auto) 5.7, Absolute Lymphs (auto) 1.02, Nucleated RBC % 0, Sodium 137, P otassium 3.1 L, Chloride 99, Carbon Dioxide 30.0, Anion Gap 8, BUN 20 H, C reatinine 1.66 H, Estim Creat Clear Calc 30.54, Est GFR (MDRD) Af Amer 38 L, Est GFR (MDRD) Non-Af 31 L, BUN/Creatinine Ratio 12.0, Glucose 117 H, Calcium 9.1 Micro: Microbiology 12/14/23 10:40 Mucosa - Nasopharyngeal SARS-CoV-2, Influenza & RSV (PCR) - Final ABG Data ABG results: ABG 12/14/23 13:02 Specimen Type ART Sample Site L Radial pH 7.43 Bicarbonate Actual 22.5 Total CO2 24 Base Excess -2 O2 Saturation 94 L O2 % 45.0 ABG pCO2 33.9 L ABG pO2 66 L O2 Delivery Device Not entered Vent Mode Not entered POC PEEP 8 Radiography Diagnostic Testing: Radiology Impression Chest X-Ray 12/14/23 11:10 IMPRESSION: CHF. Findings suggestive of bibasilar atelectasis more prominent at the left lung base. Electronically Signed: Bello Lozoya MD at 12:15 EDT , Chest CTA 12/14/23 12:28 IMPRESSION: No evidence of pleural embolism. Small bilateral pleural effusions with bibasilar infiltration and/or atelectasis and mild degree of vascular congestion. Linear atelectasis is seen in the lingular segment of the left upper lobe. Electronically Signed: Bello Lozoya MD at 13:29 EDT , Physical Exam Narrative GENERAL: cooperative HEENT: Atraumatic; normocephalic EYES; Anicteric, Normal Conjunctiva NECK; supple, normal thyroid, RESPIRATORY: Diminished to auscultation CARDIOVASCULAR: Regular S1 S2, GI: soft, normoactive bowel sounds, : No Renal angle tenderness; EXTREMITIES: No edema, no clubbing, MUSCULOSKELETAL: no muscle wasting NEURO: Awake; no lateralizing signs. SKIN: No Rash PSYCH; Flat affect Assessment & Plan Assessment/Plan (1) Heart failure: QUALIFIERS: Heart failure type: diastolic Heart failure chronicity: acute on chronic Qualified Code(s): I50.33 - Acute on chronic diastolic (congestive) heart failure PLAN: Plan Patient is an 83-year-old lady who presented with a 4-week history of progressive shortness of breath. Patient was found to be hypoxic with oxygen saturation 84% on room air on admission. An assessment of acute hypoxic respiratory failure secondary to acute congestive heart failure made placed on noninvasive ventilation BiPAP admitted to the intensive care unit for subsequent management 1. Acute hypoxic respiratory failure ? Secondary to congestive heart failure. Admitted to the intensive care unit with treatment of the underlying condition as well as use of noninvasive ventilation BiPAP 2. Acute on chronic congestive heart failure with preserved ejection fraction ? Patient presented with respiratory failure placed on BiPAP. Admitted to the intensive care unit managed with Lasix drip 2D echo from 03/17/2023 demonstrated normal LV function. Placed on strict input and output Daily weight I's and O's and repeat echo ordered 3. Paroxysmal A-fib ? Rate controlled on metoprolol on systemic anticoagulation with rivaroxaban 4. Hypertension - Blood pressure controlled, home medications continued with dose adjustment as needed 5. Dyslipidemia -Patient is on statin therapy, continued at home dose 6. Class I obesity with BMI of 32.1 ? Complicating care weight loss advised 7. Chronic kidney disease stage III ? Baseline creatinine 1.3 creatinine on admission was 1.56 suspected to be secondary to hypoperfusion from patient's CHF do expect improvement with diuresis 8. Hypokalemia ? Corrected per protocol repeat labs ordered in a.m. 9. Anemia - Secondary to chronic disorder monitoring H&H and transfuse if patient becomes symptomatic or hemoglobin falls below 7 10. DVT prophylaxis ? Patient is on rivaroxaban Time spent in the patient's overall evaluation,decision-making process, review of diagnostic data, adjustment of management, discussion with other providers, nursing nursing and ancillary staff involved in patient's care documentation, 52 Minutes Charges/Coding Visit Charges Inpatient E&M: [id number] [place] [id number]
[2023-12-15 07:49] LABS: Thyroid Stim Hormone (TSH) 1.32 uIU/mL (0.358-3.74)
--- NOTE | 2023-12-15 07:49 | CON.PCM.CA_ITS ---
Assessment & Plan Assessment/Plan (1) Heart failure: QUALIFIERS: Heart failure type: diastolic Heart failure chronicity: acute on chronic Qualified Code(s): I50.33 - Acute on chronic diastolic (congestive) heart failure PLAN: She presents with an acute exacerbation of congestive heart failure. The etiology of the above is likely precipitated by his slow developing anemia. Her ejection fraction on the echocardiogram today appears to be normal with mildly dilated right ventricle and mildly elevated pulmonary pressures. * My recommendation will be to discontinue the albumin * Continue intravenous Lasix for 6 more hours * Increase beta-rosaura * Consider treatment of the underlying cause i.e. the anemia. (2) History of coronary artery stent placement: PLAN: She does have a history of coronary artery disease status post previous angioplasty and stenting. She appears to be stable there is no evidence of ischemia at this time and her cardiac enzymes are thus far and normal. (3) Presence of cardiac pacemaker: PLAN: Status post permanent pacemaker implantation. The above appears to be functioning well. No reason to interrogate at this time. (4) Longstanding persistent atrial fibrillation: PLAN: She does have longstanding persistent atrial fibrillation. However due to her anemia her Xarelto will be discontinued until an etiology has been found. * Will continue with beta-rosaura at this time. (5) Essential (primary) hypertension: PLAN: Her blood pressure appears to be under good control at this particular time and I would not recommend making any major changes. (6) Anemia: PLAN: She appears to have a recent development of anemia. At her age a GI etiology would need to be investigated. Will defer to appropriate specialties. HPI Consult Data Date of Consult: 12/15/23 HPI Narrative HPI Narrative: ANTONIO GUPTA, is a 83 F who presents with 6 weeks onset of shortness of breath which appears to be worse with exertion but she denies a cough or pedal edema. She presented to see her primary physician and was instructed to come to the emergency room. She does have a history of coronary disease status post angioplasty and stenting of the left anterior descending artery and right coronary artery in September 2010. She also has a history of hypertension, hyperlipidemia, paroxysmal atrial fibrillation status post pacemaker placement following an AV isael ablation. She also has a history of anemia the etiology of which is unclear and she had been seeing the rug sizer for this. She tells me that she was recently placed on some iron infusions. She has also had an issue with colitis. She denies any dizziness or diaphoresis near syncope or syncope. In the emergency room she was noted to be short of breath she underwent a CT scan which demonstrated no evidence of pulmonary embolism and she had an elevated natruretic peptide level. [facility] Medical History Iron deficiency anemia History of non-ST elevation myocardial infarction (NSTEMI) (2013) Longstanding persistent atrial fibrillation Essential (primary) hypertension Anxiety Hypothyroidism Hyperlipidemia Secondary pulmonary arterial hypertension Atherosclerosis of coronary artery of [place] heart without angina pectoris Paroxysmal atrial fibrillation Paroxysmal atrial flutter Sick sinus syndrome Home Medications ?Medication ?Instructions ?Recorded ?Last Taken ?Type buspirone 15 mg tablet 15 mg PO BID ANXIETY 06/02/13 Unknown History omeprazole 40 mg capsule,delayed 40 mg PO DAILY ACID REFLUX 06/02/13 09/15/16 08:30 History release nitroglycerin 0.4 mg sublingual 0.4 mg sublingual Q5M PRN CHEST 04/21/15 Unknown History tablet PAIN glimepiride 4 mg tablet 4 mg PO DAILY DIABETES 01/24/22 Unknown History acetaminophen 500 mg capsule 1,000 mg PO Q4H PRN PAIN 02/17/23 Unknown History amitriptyline 50 mg tablet 50 mg PO QHS DEPRESSION 02/17/23 Unknown History empagliflozin 10 mg tablet 10 mg PO DAILY DIABETES 02/17/23 Unknown History (Jardiance) ketotifen fumarate 0.025 % (0.035 1 drp ophthalmic (eye) BID 02/17/23 Unknown History %) eye drops ([place]) ITCHING/ALLERGIES amlodipine 10 mg tablet 10 mg PO DAILY BLOOD PRESSURE 12/14/23 Unknown History hydrochlorothiazide 12.5 mg tablet 12.5 mg PO DAILY BLOOD PRESSURE 12/14/23 Unknown History levothyroxine 100 mcg tablet 100 mcg PO DAILY THYROID 12/14/23 Unknown History (Synthroid) losartan 100 mg tablet 100 mg PO DAILY BLOOD PRESSURE 12/14/23 Unknown History metoprolol succinate 25 mg 25 mg PO DAILY BLOOD PRESSURE 12/14/23 Unknown History tablet,extended release 24 hr rivaroxaban 20 mg tablet (Xarelto) 20 mg PO DAILY BLOOD THINNER 12/14/23 Unknown History simvastatin 20 mg tablet 20 mg PO QHS CHOLESTEROL 12/14/23 Unknown History tizanidine 4 mg tablet 4 mg PO Q8H PRN MUSCLE SPASMS 12/14/23 Unknown History Allergy/AdvReac Type Severity Reaction Status Date / Time poison fany extract (Poison Allergy Rash Verified 12/14/23 10:43 Fany Extract) Sulfa (Sulfonamide Allergy Hives Verified 12/14/23 10:43 Antibiotics) Family History Mother Cancer Father Cancer Brother CAD (coronary artery disease) Sister CAD (coronary artery disease) Surgical History History of tubal ligation History of appendectomy History of hysterectomy History of left heart catheterization (10/09/13) History of coronary artery stent placement (09/2010) Hx of atrioventricular node ablation (03/31/16) Presence of cardiac pacemaker (04/26/15) Social History Smoking Status: Former smoker how long ago did patient quit smokin's alcohol intake: never substance use type: does not use caffeine: Yes Type: coffee Number of servings: 3 ROS Constitutional Constitutional: Denies fever(s) or weight loss Eyes Eyes: Reports systems reviewed and no addt'l complaints, except as documented ENT HEENT: Reports systems reviewed and no addt'l complaints, except as documented Cardiovascular Cardiovascular: Reports dyspnea at rest and dyspnea on exertion; Denies chest pain at rest, chest pain with activity, edema, palpitations or paroxysmal nocturnal dyspnea Respiratory/Chest Respiratory/Chest: Denies dyspnea on exertion, productive cough, shortness of breath at rest or shortness of breath with exertion Gastrointestinal Gastrointestinal: Denies change in bowel habits, nausea, vomiting or weight changes Genitourinary Genitourinary: Denies difficulty urinating Musculoskeletal Musculoskeletal: Denies joint stiffness or muscle weakness Integumentary Integumentary: Denies lesions Neurologic Neurologic: Denies dizziness or syncope Psychiatric Psychiatric: Denies anxiety Endocrine Endocrinology: Denies excessive sweating or fatigue Hematologic/Lymphatic Hematologic/Lymphatic: Denies anemia Allergic/Immunologic Allergic/Immunologic: Denies seasonal rhinorrhea Physical Exam Const alert, oriented x3 and no apparent distress General Appearance: cooperative HEENT hearing grossly normal bilaterally Head and Scalp: atraumatic Eyes EOMs intact bilaterally Neck General: normal visual inspection Chest inspection of chest normal and palpation of chest normal Resp normal respiratory effort Auscultation: clear to auscultation bilaterally Cardio regular rate, regular rhythm, S1 normal heart sound and S2 normal heart sound Jugular Venous Distention: JVD GI normal to inspection, nondistended, normoactive bowel sounds Extremity normal capillary refill and no pedal edema Peripheral Pulses: Yes pulses 2+ throughout and femoral pulses present Skin no rashes or lesions noted Neuro oriented x3 and CN's II-XII intact bilaterally Psych Appearance: grossly normal and appropriate Risk Stratification Risk Stratification Applicable: No Objective Data Vital Signs: Vital Signs Temp Pulse Resp BP Pulse Ox O2 Del Method O2 Flow Rate 97.6 F L 91 24 H 129/60 H 94 High Flow 8 12/15/23 05:00 12/15/23 07:00 12/15/23 07:00 12/15/23 07:00 12/15/23 07:00 12/15/23 07:00 12/15/23 07:00 FiO2 50 12/15/23 05:00 Oxygen Flow Rate (L/min) 8 Oxygen Delivery Method High Flow Weight: 211 lb 4.8 oz Body Mass Index (BMI) 32.1 Intake & Output: Intake and Output for Last 24 Hours 12/13/23 12/14/23 12/15/23 23:59 23:59 23:59 Intake Total 200 / 207.27 207.27 / 207.27 Output Total 1350 / 1350 1625 / 1625 Balance -1150 / -1142.73 -1417.73 / -1417.73 Lab / Micro Data 12/15/23 04:08 12/15/23 04:08 Labs: Laboratory Results - last 24 hr 12/14/23 10:40: WBC 10.8, RBC 4.12 L, Hgb 10.5 L, Hct 36.5 L, MCV 88.6, MCH 25.5 L, MCHC 28.8 L, RDW Std Deviation 61.0 H, RDW Coeff of Jose Alberto 20.5 H, Plt Count 400, MPV 9.7, Immature Gran % (Auto) 0.500, Neut % (Auto) 80.1 H, Lymph % (Auto) 8.5 L, Jay % (Auto) 9.0, Eos % (Auto) 1.5, Baso % (Auto) 0.4, Absolute Neuts (auto) 8.6 H, Absolute Lymphs (auto) 0.92, Nucleated RBC % 0, Anisocytosis 1+, S odium 133 L, Potassium 3.5, Chloride 100, Carbon Dioxide 25.0, Anion Gap 8, BUN 19 H, Creatinine 1.56 H, Estim Creat Clear Calc 19.36, Est GFR (MDRD) Af Amer 41 L, Est GFR (MDRD) Non-Af 34 L, BUN/Creatinine Ratio 12.2, Glucose 190 H, Lactic Acid 1.9, Calcium 9.6, Total Bilirubin 0.70, AST 19, ALT 16, Alkaline Phosphatase 151 H, Troponin I High Sens 11, B-Natriuretic Peptide 275.1 H, Total Protein 8.8 H, Albumin 3.5, Globulin 5.3 H, Albumin/Globulin Ratio 0.7 L 12/14/23 13:35: Troponin I High Sens 12 12/14/23 16:35: Troponin I High Sens 11 12/14/23 16:40: POC Glucose 124 H 12/14/23 20:23: POC Glucose 172 H 12/15/23 04:08: WBC 7.8, RBC 3.47 L, Hgb 8.9 L, Hct 30.5 L, MCV 87.9, MCH 25.6 L , MCHC 29.2 L, RDW Std Deviation 61.5 H, RDW Coeff of Jose Alberto 20.5 H, Plt Count 312, MPV 9.5, Immature Gran % (Auto) 0.400, Neut % (Auto) 73.5 H, Lymph % (Auto) 13.1 L, Jay % (Auto) 10.2 H, Eos % (Auto) 2.4, Baso % (Auto) 0.4, Absolute Neuts (auto) 5.7, Absolute Lymphs (auto) 1.02, Nucleated RBC % 0, Sodium 137, P otassium 3.1 L, Chloride 99, Carbon Dioxide 30.0, Anion Gap 8, BUN 20 H, C reatinine 1.66 H, Estim Creat Clear Calc 30.54, Est GFR (MDRD) Af Amer 38 L, Est GFR (MDRD) Non-Af 31 L, BUN/Creatinine Ratio 12.0, Glucose 117 H, Calcium 9.1, Troponin I High Sens 12, TSH 1.32 Micro: Microbiology 12/14/23 10:40 Mucosa - Nasopharyngeal SARS-CoV-2, Influenza & RSV (PCR) - Final ABG Data ABG results: ABG 12/14/23 13:02 Specimen Type ART Sample Site L Radial pH 7.43 Bicarbonate Actual 22.5 Total CO2 24 Base Excess -2 O2 Saturation 94 L O2 % 45.0 ABG pCO2 33.9 L ABG pO2 66 L O2 Delivery Device Not entered Vent Mode Not entered POC PEEP 8 Cardiology Labs/Tests 12/14/23 10:40: WBC 10.8, RBC 4.12 L, Hgb 10.5 L, Hct 36.5 L, MCV 88.6, MCH 25.5 L, MCHC 28.8 L, Plt Count 400, MPV 9.7, Immature Gran % (Auto) 0.500, Neut % (Auto) 80.1 H, Lymph % (Auto) 8.5 L, Jay % (Auto) 9.0, Eos % (Auto) 1.5, Baso % (Auto) 0.4, Absolute Neuts (auto) 8.6 H, Nucleated RBC % 0, Sodium 133 L, Potassium 3.5, Chloride 100, Carbon Dioxide 25.0, Anion Gap 8, BUN 19 H, C reatinine 1.56 H, Est GFR (MDRD) Af Amer 41 L, Est GFR (MDRD) Non-Af 34 L, BUN/Creatinine Ratio 12.2, Glucose 190 H, Lactic Acid 1.9, Calcium 9.6, Total Bilirubin 0.70, B-Natriuretic Peptide 275.1 H 12/14/23 13:02: pH 7.43, Bicarbonate Actual 22.5, Base Excess -2, O2 Saturation 94 L, ABG pCO2 33.9 L, ABG pO2 66 L 12/15/23 04:08: WBC 7.8, RBC 3.47 L, Hgb 8.9 L, Hct 30.5 L, MCV 87.9, MCH 25.6 L , MCHC 29.2 L, Plt Count 312, MPV 9.5, Immature Gran % (Auto) 0.400, Neut % (Auto) 73.5 H, Lymph % (Auto) 13.1 L, Jay % (Auto) 10.2 H, Eos % (Auto) 2.4, Baso % (Auto) 0.4, Absolute Neuts (auto) 5.7, Nucleated RBC % 0, Sodium 137, P otassium 3.1 L, Chloride 99, Carbon Dioxide 30.0, Anion Gap 8, BUN 20 H, C reatinine 1.66 H, Est GFR (MDRD) Af Amer 38 L, Est GFR (MDRD) Non-Af 31 L, BUN/Creatinine Ratio 12.0, Glucose 117 H, Calcium 9.1 Rhythm: EKG: ECHO: Stress Test: Cardiac Cath: PCI: CT Surgery: Holter monitor: EPS: PPM: CXR: Chest CT Scan: Radiography Diagnostic Testing: Radiology Impression Chest X-Ray 12/14/23 11:10 IMPRESSION: CHF. Findings suggestive of bibasilar atelectasis more prominent at the left lung base. Electronically Signed: Bello Lozoya MD at 12:15 EDT , Chest CTA 12/14/23 12:28 IMPRESSION: No evidence of pleural embolism. Small bilateral pleural effusions with bibasilar infiltration and/or atelectasis and mild degree of vascular congestion. Linear atelectasis is seen in the lingular segment of the left upper lobe. Electronically Signed: Bello Lozoya MD at 13:29 EDT ,
[2023-12-15] MEDS: Glimepiride 4 MG Tablet PO (08:18)
[2023-12-15] MEDS: Potassium Chloride Oral Tablet 20 MEQ 40 MEQ PO (08:19)
[2023-12-15] MEDS: Pantoprazole Sodium 40 MG Tablet PO (08:19)
[2023-12-15] MEDS: busPIRone 15 MG TABLET PO ×2 (08:19→20:28)
[2023-12-15] MEDS: Empagliflozin 10 MG Tablet PO (08:19)
[2023-12-15] MEDS: Metoprolol(XL)Succ 50 MG Tablet PO (08:35)
[2023-12-15 09:00] LABS: Bedside Glucose 123 mg/dL (74-106)
[2023-12-15] MEDS: Insulin Lispro 100 UNIT/ML INSULN.PEN SC ×3 (11:08→20:31)
[2023-12-15 11:28] LABS: Bedside Glucose 173 mg/dL (74-106)
--- NOTE | 2023-12-15 13:40 | CASEMGMT ---
NIYA OJEDA Face to Face with patient for initial transition planning/care coordination assessment. RN CM introduced self and role at [facility]. Patient sitting in chair, alert and oriented, daughter at bedside. Patient willing to participate in assessment and is able to answer all questions appropriately. Care providers, pharmacy, and demographics verified. PCP: Aj Specialists: Ivett, clothing pattern preparer; Olivia, technology applications engineer Preferred Pharmacy: [facility] Insurance: [facility] Prescription Benefit: yes Living Will/HPOA: yes, Hardik Young LNOK: , daughter Living Arrangements: Patient lives with in a 2 story home with bed and bath on first floor. Patient states she is independent at home. Transportation: DME/HHC: Patient states she has cane, walker, shower chair, grab bars, and glucometer at home. No previous HHC. Patient has been to [facility] in the past. Will monitor for home oxygen. Patient prefers [employer] for DME. Patient wishes to discharge home, denies need for home health at this time. Will monitor progress with therapy for recommendations. Patient states he has no further needs or concerns at this time. CM to follow for discharge planning needs that may arise. Disposition Plan: Patient to discharge home with family support and follow-up plans in place. Will monitor for HHC and home oxygen at discharge. Janet BAÑUELOS, RN, CM
[2023-12-15 17:11] LABS: Bedside Glucose 165 mg/dL (74-106)
[2023-12-15] MEDS: tiZANidine HCl 2 MG Tablet 4 MG PO (20:27)
[2023-12-15] MEDS: Atorvastatin Calcium 10 MG Tablet PO (20:28)
[2023-12-15] MEDS: Amitriptyline 25 MG Tablet 50 MG PO (20:28)
[2023-12-15] MEDS: KETOTIFEN FUMARATE 1 EACH EYE (20:28)
[2023-12-16] VITALS (18 sets, daily range): BP systolic 104–143; BP diastolic 47–90; PULSE 90–91; RESP 12–28; TEMP 36.8–37.3; O2SAT 92–99; BMI 30.4
[2023-12-16 01:50] LABS: Bedside Glucose 159 mg/dL (74-106)
[2023-12-16 03:39] LABS: Absolute Lymphocyte Count 1.02 X10^3/uL (0.83-4.51); Absolute Neutrophil Count 6.3 X10^3/uL (2.0-7.7); Basophil# 0.04 X10^3/uL; Basophil% 0.5 % (0-1); Eosinophil# 0.25 X10^3/uL; Eosinophils% 2.9 % (0-5); Hematocrit 34.2 % (37-47); Lymphocyte # 1.02 X10^3/ul (0.83-4.51); Lymphocyte % 11.9 % (19-41); Mean Corp Hgb Conc 29.2 g/dL (32-36); Mean Corpuscular Hgb 25.4 pg (27.0-32.0); Mean Platelet Vol. 9.7 fl (6.2-12.0); Monocyte# 0.95 X10^3/uL; Monocyte% 11.1 % (0-10); NRBC Flagged by Analyzer 0 % (0-5); Neutrophil # 6.26 X10^3/uL (2.7-7.7); Neutrophil % 73.2 % (47-70); POSITIVE MORPHOLOGY YES; Platelet Count 367 K/mm3 (150-450); RBC Distribution Width CV 20.2 % (11.6-14.6); Red Blood Count 3.93 M/mm3 (4.2-5.4); White Blood Count 8.6 K/mm3 (4.4-11.0)
[2023-12-16 04:04] LABS: Differential Indicated SCAN CRITERIA MET
[2023-12-16 04:05] LABS: Anion Gap 11 (5-15); BUN 31 mg/dL (7-18); BUN/Creat Ratio 17.1 RATIO (10-20); Calcium,Total 9.4 mg/dL (8.5-10.1); Chloride 96 mmol/L (98-107); Creatinine, Serum 1.81 mg/dL (0.55-1.02); EST Glomerular Filtration Rate 28 mL/min (>60); Est Glom Filt Rate - Afr Amer 34 mL/min (>60); Estimated Creatinine Clearance 28.01 ml/min; Glucose 138 mg/dL (74-106); Magnesium 2.1 mg/dL (1.6-2.6); Phosphorus 3.7 mg/dL (2.5-4.9); Potassium 2.9 mmol/L (3.5-5.1); Sodium Level 136 mmol/L (136-145)
[2023-12-16 04:44] LABS: Anisocytosis 2+; Stomatocyte 1+
[2023-12-16] MEDS: Levothyroxine 100 MCG Tablet PO (05:30)
[2023-12-16] MEDS: Furosemide 500 MG in Empty Viaflex 50 mL 1 EACH CONT INF (05:30)
--- NOTE | 2023-12-16 07:38 | PN.HOSP_ITS ---
Reason for Visit Reason for Visit: Diagnoses Anemia, unspecified (12/14/23) Essential (primary) hypertension (12/14/23) Longstanding persistent atrial fibrillation (12/14/23) Acute on chronic diastolic (congestive) heart failure (12/14/23) Heart failure, unspecified (12/14/23) Acute respiratory failure with hypoxia (12/14/23) Presence of cardiac pacemaker (12/14/23) Presence of coronary angioplasty implant and graft (12/14/23) Subjective Subjective Patient seen remains in ICU. Diagnostic data; for potassium of 2.9 replacement initiated. Plan is to continue to wean down patient oxygen Objective Data Objective Data Vital Signs: Vital Signs Temp Pulse Resp BP Pulse Ox O2 Del Method O2 Flow Rate 98.2 F 91 24 H 124/54 H 94 Nasal Cannula 4 12/16/23 04:00 12/16/23 07:00 12/16/23 07:00 12/16/23 07:00 12/16/23 07:00 12/16/23 07:34 12/16/23 07:34 FiO2 40 12/16/23 05:00 Oxygen Flow Rate (L/min) 4 Oxygen Delivery Method Nasal Cannula Weight: 91 kg Body Mass Index (BMI) 30.4 Intake & Output: Intake and Output for Last 24 Hours 12/14/23 12/15/23 12/16/23 23:59 23:59 23:59 Intake Total 200 / 207.27 927.27 / 927.27 131.23 / 131.23 Output Total 1350 / 1350 3125 / 3575 1850 / 1850 Balance -1150 / -1142.73 -2197.73 / -2647.73 -1718.77 / -1718.77 Lab / Micro Data 12/16/23 03:10 12/16/23 03:10 Labs: Laboratory Results - last 24 hr 12/15/23 04:08: TSH 1.32 12/15/23 08:17: POC Glucose 123 H 12/15/23 08:40: Blood Type O POSITIVE, Antibody Screen NEGATIVE 12/15/23 11:07: POC Glucose 173 H 12/15/23 16:42: POC Glucose 165 H 12/15/23 20:30: POC Glucose 159 H 12/16/23 03:10: WBC 8.6, RBC 3.93 L, Hgb 10.0 L, Hct 34.2 L, MCV 87.0, MCH 25.4 L, MCHC 29.2 L, RDW Std Deviation 62.0 H, RDW Coeff of Jose Alberto 20.2 H, Plt Count 367, MPV 9.7, Immature Gran % (Auto) 0.400, Neut % (Auto) 73.2 H, Lymph % (Auto) 11.9 L, [place] % (Auto) 11.1 H, Eos % (Auto) 2.9, Baso % (Auto) 0.5, Absolute Neuts (auto) 6.3, Absolute Lymphs (auto) 1.02, Nucleated RBC % 0, Anisocytosis 2+, Stomatocytes 1+, Sodium 136, Potassium 2.9 L, Chloride 96 L, Carbon Dioxide 29.0, Anion Gap 11, BUN 31 H, Creatinine 1.81 H, Estim Creat Clear Calc 28.01, E st GFR (MDRD) Af Amer 34 L, Est GFR (MDRD) Non-Af 28 L, BUN/Creatinine Ratio 17.1, Glucose 138 H, Calcium 9.4, Phosphorus 3.7, Magnesium 2.1 Micro: Microbiology 12/14/23 10:40 Mucosa - Nasopharyngeal SARS-CoV-2, Influenza & RSV (PCR) - Final Radiography Diagnostic Testing: Radiology Impression Echocardiogram 12/14/23 16:03 Interpretation Summary Normal LV size. Left ventricular systolic function is normal. The left ventricular ejection fraction is 55 %. Pulmonary artery systolic pressure is 50 mmHg. The left atrium is severely enlarged. The right atrium is severely enlarged. Ordering Physician: Joanne Vo Referring Physician: Matt Rocha Performed By: Robyn Aviles, HEMANT, RVT Physical Exam Narrative GENERAL: cooperative HEENT: Atraumatic; normocephalic EYES; Anicteric, Normal Conjunctiva NECK; supple, normal thyroid, RESPIRATORY: Diminished to auscultation CARDIOVASCULAR: Regular S1 S2, GI: soft, normoactive bowel sounds, : No Renal angle tenderness; EXTREMITIES: No edema, no clubbing, MUSCULOSKELETAL: no muscle wasting NEURO: Awake; no lateralizing signs. SKIN: No Rash PSYCH; Flat affect Const alert, oriented x3 and no apparent distress General Appearance: cooperative HEENT head/scalp atraumatic, moist oral mucous membranes and oropharynx normal Eyes PERRL and EOMs intact bilaterally Neck no lymphadenopathy, supple and no JVD Lymph Lymphatic: no lymphadenopathy noted and no lymphedema noted Resp Resp Narrative: moderately diminished breath sounds bibasally, no wheezes, few crackles. On 12L of oxygen by nasal canula Effort and Inspection: tachypneic and respiratory distress Cardio regular rate, regular rhythm, S1 normal heart sound, S2 normal heart sound and no murmurs GI normal to inspection, nondistended, normoactive bowel sounds, soft to palpation, non-tender and non-distended Extremity normal capillary refill, no clubbing, cyanosis or edema and no calf tenderness General Extremity: no tenderness to palpation of joints or extremities Neuro CN's II-XII intact bilaterally, no focal motor deficits, no sensory deficits noted and deep tendon reflexes 2+ bilaterally Motor Exam: strength 5/5 throughout and general weakness Psych thought process normal and cooperative Appearance: appropriate Assessment & Plan Assessment/Plan (1) Heart failure: QUALIFIERS: Heart failure chronicity: acute on chronic Heart failure type: diastolic Qualified Code(s): I50.33 - Acute on chronic diastolic (congestive) heart failure PLAN: Plan Patient is an 83-year-old lady who presented with a 4-week history of progressive shortness of breath. Patient was found to be hypoxic with oxygen saturation 84% on room air on admission. An assessment of acute hypoxic respiratory failure secondary to acute congestive heart failure made placed on noninvasive ventilation BiPAP admitted to the intensive care unit for subsequent management 1. Acute hypoxic respiratory failure ? Secondary to congestive heart failure. Admitted to the intensive care unit with treatment of the underlying condition as well as use of noninvasive ventilation BiPAP ? 12/16/2023; patient was weaned off BiPAP currently on 4 L flow per minute nasal cannula 2. Acute on chronic congestive heart failure with preserved ejection fraction ? Patient presented with respiratory failure placed on BiPAP. Admitted to the intensive care unit managed with Lasix drip 2D echo from 03/17/2023 demonstrated normal LV function. Placed on strict input and output Daily weight I's and O's and repeat echo ordered. ? 12/16/2023; patient responding to diuretic therapy 3. Paroxysmal A-fib ? Rate controlled on metoprolol on systemic anticoagulation with rivaroxaban 4. Hypertension - Blood pressure controlled, home medications continued with dose adjustment as needed 5. Dyslipidemia -Patient is on statin therapy, continued at home dose 6. Class I obesity with BMI of 32.1 ? Complicating care weight loss advised 7. Chronic kidney disease stage III ? Baseline creatinine 1.3 creatinine on admission was 1.56 suspected to be secondary to hypoperfusion from patient's CHF do expect improvement with diuresis 8. Hypokalemia ? Corrected per protocol repeat labs ordered in a.m. ? 12/16/2023; patient potassium significantly down, additional replacement given patient placed on scheduled potassium replacement 9. Anemia - Secondary to chronic disorder monitoring H&H and transfuse if patient becomes symptomatic or hemoglobin falls below 7 10. Diabetes mellitus type II -patient's oral hypoglycemics held. Placed on long acting insulin, Accu-Cheks a.c. and at bedtime and covered with sliding scale insulin 11. Conduction system disorder ? Status post pacemaker placement 12. DVT prophylaxis ? Patient is on rivaroxaban Time spent in the patient's overall evaluation,decision-making process, review of diagnostic data, adjustment of management, discussion with other providers, nursing nursing and ancillary staff involved in patient's care documentation, 50 Minutes Charges/Coding Visit Charges Inpatient E&M: [id number] [facility] L3
[2023-12-16] MEDS: Potassium Chloride Oral Tablet 20 MEQ PO ×2 (08:02→16:45)
[2023-12-16] MEDS: Potassium Chloride Oral Tablet 20 MEQ 40 MEQ PO (08:02)
[2023-12-16] MEDS: 0.9% Saline Lock 10 ML Syringe IV (08:02)
[2023-12-16] MEDS: busPIRone 15 MG TABLET PO ×2 (08:02→21:42)
[2023-12-16] MEDS: KETOTIFEN FUMARATE 1 EACH EYE (08:03)
[2023-12-16] MEDS: Pantoprazole Sodium 40 MG Tablet PO (08:03)
[2023-12-16] MEDS: Metoprolol(XL)Succ 50 MG Tablet PO (08:03)
[2023-12-16 08:27] LABS: Bedside Glucose 138 mg/dL (74-106)
--- NOTE | 2023-12-16 10:35 | PN.CARD_ITS ---
Subjective Subjective Patient seen and evaluated. Appears to be doing well. Objective Data Vital Signs: Vital Signs Temp Pulse Resp BP Pulse Ox O2 Del Method O2 Flow Rate 99.1 F 90 19 H 130/64 H 94 Nasal Cannula 4 12/16/23 08:01 12/16/23 08:03 12/16/23 08:01 12/16/23 08:01 12/16/23 08:01 12/16/23 08:01 12/16/23 08:01 FiO2 40 12/16/23 05:00 Oxygen Flow Rate (L/min) 4 Oxygen Delivery Method Nasal Cannula Weight: 200 lb 9.93 oz Body Mass Index (BMI) 30.4 Intake & Output: Intake and Output for Last 24 Hours 12/14/23 12/15/23 12/16/23 23:59 23:59 23:59 Intake Total 200 / 207.27 927.27 / 927.27 331.23 / 331.23 Output Total 1350 / 1350 3125 / 3575 2350 / 2350 Balance -1150 / -1142.73 -2197.73 / -2647.73 - / - Lab / Micro Data 12/16/23 03:10 12/16/23 03:10 Labs: Laboratory Results - last 24 hr 12/15/23 11:07: POC Glucose 173 H 12/15/23 16:42: POC Glucose 165 H 12/15/23 20:30: POC Glucose 159 H 12/16/23 03:10: WBC 8.6, RBC 3.93 L, Hgb 10.0 L, Hct 34.2 L, MCV 87.0, MCH 25.4 L, MCHC 29.2 L, RDW Std Deviation 62.0 H, RDW Coeff of Jose Alberto 20.2 H, Plt Count 367, MPV 9.7, Immature Gran % (Auto) 0.400, Neut % (Auto) 73.2 H, Lymph % (Auto) 11.9 L, [place] % (Auto) 11.1 H, Eos % (Auto) 2.9, Baso % (Auto) 0.5, Absolute Neuts (auto) 6.3, Absolute Lymphs (auto) 1.02, Nucleated RBC % 0, Anisocytosis 2+, Stomatocytes 1+, Sodium 136, Potassium 2.9 L, Chloride 96 L, Carbon Dioxide 29.0, Anion Gap 11, BUN 31 H, Creatinine 1.81 H, Estim Creat Clear Calc 28.01, E st GFR (MDRD) Af Amer 34 L, Est GFR (MDRD) Non-Af 28 L, BUN/Creatinine Ratio 17.1, Glucose 138 H, Calcium 9.4, Phosphorus 3.7, Magnesium 2.1 12/16/23 08:00: POC Glucose 138 H Cardiology Labs/Tests 12/16/23 03:10: WBC 8.6, RBC 3.93 L, Hgb 10.0 L, Hct 34.2 L, MCV 87.0, MCH 25.4 L, MCHC 29.2 L, Plt Count 367, MPV 9.7, Immature Gran % (Auto) 0.400, Neut % (Auto) 73.2 H, Lymph % (Auto) 11.9 L, [place] % (Auto) 11.1 H, Eos % (Auto) 2.9, Baso % (Auto) 0.5, Absolute Neuts (auto) 6.3, Nucleated RBC % 0, Sodium 136, P otassium 2.9 L, Chloride 96 L, Carbon Dioxide 29.0, Anion Gap 11, BUN 31 H, C reatinine 1.81 H, Est GFR (MDRD) Af Amer 34 L, Est GFR (MDRD) Non-Af 28 L, BUN/Creatinine Ratio 17.1, Glucose 138 H, Calcium 9.4, Phosphorus 3.7, Magnesium 2.1 Rhythm: EKG: ECHO: Stress Test: Cardiac Cath: PCI: CT Surgery: Holter monitor: EPS: PPM: CXR: Chest CT Scan: Radiography Diagnostic Testing: Radiology Impression Echocardiogram 12/14/23 16:03 Interpretation Summary Normal LV size. Left ventricular systolic function is normal. The left ventricular ejection fraction is 55 %. Pulmonary artery systolic pressure is 50 mmHg. The left atrium is severely enlarged. The right atrium is severely enlarged. Ordering Physician: Joanne Vo Referring Physician: Matt Rocha Performed By: Robyn Aviles, HEMANT, RVT Physical Exam Const alert, oriented x3 and no apparent distress General Appearance: cooperative HEENT hearing grossly normal bilaterally Head and Scalp: atraumatic Eyes EOMs intact bilaterally Neck General: normal visual inspection Chest inspection of chest normal and palpation of chest normal Resp normal respiratory effort Auscultation: clear to auscultation bilaterally Cardio regular rate, regular rhythm, S1 normal heart sound and S2 normal heart sound Jugular Venous Distention: JVD GI normal to inspection, nondistended, normoactive bowel sounds Extremity normal capillary refill and no pedal edema Peripheral Pulses: Yes pulses 2+ throughout and femoral pulses present Skin no rashes or lesions noted Neuro oriented x3 and CN's II-XII intact bilaterally Psych Appearance: grossly normal and appropriate Assessment & Plan Assessment/Plan (1) Heart failure: QUALIFIERS: Heart failure type: diastolic Heart failure chronicity: acute on chronic Qualified Code(s): I50.33 - Acute on chronic diastolic (congestive) heart failure PLAN: She presents with an acute exacerbation of congestive heart failure. The etiology of the above is likely precipitated by his slow developing anemia. Her ejection fraction on the echocardiogram today appears to be normal with mildly dilated right ventricle and mildly elevated pulmonary pressures. * She appears to have improved and I would recommend holding her diuretics today * Resuming oral diuretics from tomorrow * Continue beta-rosaura (2) History of coronary artery stent placement: PLAN: She does have a history of coronary artery disease status post previous angioplasty and stenting. She appears to be stable there is no evidence of ischemia at this time and her cardiac enzymes are thus far and normal. (3) Presence of cardiac pacemaker: PLAN: Status post permanent pacemaker implantation. The above appears to be functioning well. No reason to interrogate at this time. (4) Longstanding persistent atrial fibrillation: PLAN: She does have longstanding persistent atrial fibrillation. However due to her anemia her Xarelto will be discontinued until an etiology has been found. * Will continue with beta-rosaura at this time. (5) Essential (primary) hypertension: PLAN: Her blood pressure appears to be under good control at this particular time and I would not recommend making any major changes. (6) Anemia: PLAN: She appears to have a recent development of anemia. At her age a GI etiology would need to be investigated. Will defer to appropriate specialties.
[2023-12-16] MEDS: Insulin Lispro 100 UNIT/ML INSULN.PEN SC ×2 (11:21→21:42)
[2023-12-16 11:42] LABS: Bedside Glucose 245 mg/dL (74-106)
--- NOTE | 2023-12-16 13:14 | PCM.PN.TICU ---
Objective Data Objective Data Vital Signs: Vital Signs Last response Temperature 37.3 C 12/16/23 08:01 Temperature Source Temporal 12/16/23 08:01 Pulse Rate 90 12/16/23 08:03 Pulse Strength Weak (1+) 12/16/23 07:33 Respiratory Rate 26 H 12/16/23 12:45 Respiratory Effort Normal, Non-Labored 12/16/23 07:34 Respiratory Depth Normal 12/16/23 07:34 Respiratory Pattern Tachypnea 12/16/23 12:45 Blood Pressure 130/64 H 12/16/23 08:01 Blood Pressure Mean 86 12/16/23 08:01 Blood Pressure Source Monitor 12/16/23 08:01 Blood Pressure Position Semi-Fowlers 12/16/23 08:01 Blood Pressure Location Left Arm 12/16/23 08:01 Pulse Ox 94 12/16/23 08:01 Oxygen Delivery Method Nasal Cannula 12/16/23 12:45 Oxygen Flow Rate (L/min) 2 12/16/23 12:45 Fraction of Inspired Oxygen (FIO2) 40 12/16/23 05:00 I&O: I&O Last 24 Hours 12/15/23 12/16/23 12/16/23 23:59 11:59 23:59 Intake Total 220 / 927.27 331.23 / 331.23 Output Total 550 / 3575 2350 / 2350 Balance -330 / -2647.73 - / - I&O: Total Stay 12/14/23 10:40 thru 12/16/23 10:16 Intake Total 1458.50 Output Total 6825 Balance -5366.50 Current Meds Ordered / Administered: Current meds ordered / Administered Generic Name Dose Route Start Last Admin Trade Name Freq PRN Reason Stop Dose Admin Acetaminophen 650 mg 12/14/23 16:03 Acetaminophen 325 Mg Tablet PO Q6H PRN PRN Pain 1-10 Or Fever >100.7 Amitriptyline HCl 50 mg 12/14/23 22:00 12/15/23 20:28 Amitriptyline 25 Mg Tablet PO 50 mg QHS RILEY Administration Atorvastatin Calcium 10 mg 12/14/23 22:00 12/15/23 20:28 Atorvastatin Calcium 10 Mg Tablet PO 10 mg QHS RILEY Administration Buspirone HCl 15 mg 12/14/23 22:00 12/16/23 08:02 Buspirone 15 Mg Tablet PO 15 mg BID RILEY Administration Dextrose 0 gm 12/14/23 16:03 Dextrose 50%-Water 25 Gm/50 Ml Disp.Syrin IV X1 PRN HYPOGLYCEMIA Protocol Glucagon 1 mg 12/14/23 16:03 Glucagon 1 Mg/Ml Syringe IM X1 PRN HYPOGLYCEMIA Insulin Human Lispro 0 unit 12/14/23 16:03 12/16/23 11:21 Insulin Lispro 100 Unit/Ml Insuln.Pen SC 4 u ACHS RILEY Administration Protocol Levothyroxine Sodium 100 mcg 12/15/23 06:00 12/16/23 05:30 Levothyroxine 100 Mcg Tablet PO 100 mcg DAILY@0600 RILEY Administration Metoprolol Succinate 50 mg 12/15/23 10:00 12/16/23 08:03 Metoprolol(Xl)Succ 50 Mg Tablet PO 50 mg DAILY RILEY Administration Protocol Nitroglycerin 0.4 mg 12/14/23 16:14 Nitroglycerin (Inpatient Use) 0.4 Mg Tab.Subl SL Q5M PRN CARDIAC/CHEST PAIN Non-Formulary Medication 1 drp 12/15/23 22:00 12/16/23 08:03 Ketotifen Fumarate [Alaway] EACH EYE 1 drp BID RILEY Administration Ondansetron HCl 4 mg 12/14/23 16:03 Ondansetron 4 Mg/2 Ml Vial IV Q8H PRN PRN NAUSEA/VOMITING Pantoprazole Sodium 40 mg 12/15/23 10:00 12/16/23 08:03 Pantoprazole Sodium 40 Mg Tablet PO 40 mg DAILY RILEY Administration Potassium Chloride 20 meq 12/16/23 08:00 12/16/23 08:02 Potassium Chloride Oral Tablet 20 Meq PO 20 meq BIDCM RILEY Administration Sodium Chloride 10 - 40 ml 12/14/23 15:57 12/16/23 08:02 0.9% Saline Lock 10 Ml Syringe IV 10 ml UD PRN Administration SALINE FLUSH Tizanidine HCl 4 mg 12/14/23 16:03 12/15/23 20:27 Tizanidine Hcl 2 Mg Tablet PO 4 mg Q8H PRN PRN Administration MUSCLE SPASMS Lab / Micro Data 12/16/23 03:10 12/16/23 03:10 Labs: Laboratory Results - last 24 hr 12/15/23 16:42: POC Glucose 165 H 12/15/23 20:30: POC Glucose 159 H 12/16/23 03:10: WBC 8.6, RBC 3.93 L, Hgb 10.0 L, Hct 34.2 L, MCV 87.0, MCH 25.4 L, MCHC 29.2 L, RDW Std Deviation 62.0 H, RDW Coeff of Jose Alberto 20.2 H, Plt Count 367, MPV 9.7, Immature Gran % (Auto) 0.400, Neut % (Auto) 73.2 H, Lymph % (Auto) 11.9 L, [place] % (Auto) 11.1 H, Eos % (Auto) 2.9, Baso % (Auto) 0.5, Absolute Neuts (auto) 6.3, Absolute Lymphs (auto) 1.02, Nucleated RBC % 0, Anisocytosis 2+, Stomatocytes 1+, Sodium 136, Potassium 2.9 L, Chloride 96 L, Carbon Dioxide 29.0, Anion Gap 11, BUN 31 H, Creatinine 1.81 H, Estim Creat Clear Calc 28.01, Est GFR (MDRD) Af Amer 34 L, Est GFR (MDRD) Non-Af 28 L, BUN/Creatinine Ratio 17.1, Glucose 138 H, Calcium 9.4, Phosphorus 3.7, Magnesium 2.1 12/16/23 08:00: POC Glucose 138 H 12/16/23 11:18: POC Glucose 245 H Assessment and Plan . Assessment and plan: Patient seen and examined Chart and data reviewed Minimal O2 requirement She appears comfortable at rest I/O (-) w/ furosemide Supplementing K+ EXAM GEN NAD VS as above HEENT o/p clear NECK supple COR irregRR CHEST basilar crackles ABD soft EXT minimal edema LOU NF ASSESSMENT 1. Dyspnea / hypoxemia 2. Decompensated CHF 3. DM / CKD / ASCVD TREATMENT PLAN -supplemental O2 as needed -loop diuretics -chronic A/C for AF -supplement K+ -defer to cardiology The entirety of this encounter was done via Telemedicine
--- NOTE | 2023-12-16 16:57 | NURSING ---
Report called to brandy Rashid is going to [phone]
[2023-12-16 17:01] LABS: Bedside Glucose 93 mg/dL (74-106)
[2023-12-16] MEDS: Amitriptyline 25 MG Tablet 50 MG PO (21:42)
[2023-12-16] MEDS: Atorvastatin Calcium 10 MG Tablet PO (21:42)
--- NOTE | 2023-12-16 22:30 | CPS ---
Pt requested to not wear the BIPAP for tonight, that it prevents her from getting any sleep.
[2023-12-16 22:37] LABS: Bedside Glucose 194 mg/dL (74-106)
[2023-12-17] VITALS (7 sets, daily range): BP systolic 126–148; BP diastolic 57–70; PULSE 90–91; RESP 17–18; TEMP 36.6–36.7; O2SAT 84–96; BMI 30.9
[2023-12-17] MEDS: Levothyroxine 100 MCG Tablet PO (06:09)
[2023-12-17 06:29] LABS: Absolute Lymphocyte Count 1.06 X10^3/uL (0.83-4.51); Absolute Neutrophil Count 3.4 X10^3/uL (2.0-7.7); Basophil# 0.03 X10^3/uL; Basophil% 0.5 % (0-1); Eosinophil# 0.15 X10^3/uL; Eosinophils% 2.7 % (0-5); Hematocrit 36.8 % (37-47); Hemoglobin 10.5 g/dL (12.0-15.0); Lymphocyte # 1.06 X10^3/ul (0.83-4.51); Lymphocyte % 19.1 % (19-41); Mean Corp Hgb Conc 28.5 g/dL (32-36); Mean Corpuscular Hgb 25.4 pg (27.0-32.0); Mean Corpuscular Volume 89.1 fL (81-99); Monocyte# 0.92 X10^3/uL; Monocyte% 16.5 % (0-10); NRBC Flagged by Analyzer 0 % (0-5); Neutrophil # 3.38 X10^3/uL (2.7-7.7); Neutrophil % 60.8 % (47-70); POSITIVE MORPHOLOGY YES; Platelet Count 351 K/mm3 (150-450); RBC Distribution Width CV 20.2 % (11.6-14.6); RBC Distribution Width SD 64.6 fl (35.1-43.9); Red Blood Count 4.13 M/mm3 (4.2-5.4); White Blood Count 5.6 K/mm3 (4.4-11.0)
[2023-12-17 06:31] LABS: Bedside Glucose 136 mg/dL (74-106)
[2023-12-17 06:56] LABS: Anion Gap 7 (5-15); BUN 31 mg/dL (7-18); BUN/Creat Ratio 19.3 RATIO (10-20); Calcium,Total 9.3 mg/dL (8.5-10.1); Chloride 102 mmol/L (98-107); Creatinine, Serum 1.61 mg/dL (0.55-1.02); EST Glomerular Filtration Rate 32 mL/min (>60); Est Glom Filt Rate - Afr Amer 39 mL/min (>60); Estimated Creatinine Clearance 30.87 ml/min; Glucose 134 mg/dL (74-106); Potassium 3.4 mmol/L (3.5-5.1); Sodium Level 136 mmol/L (136-145)
[2023-12-17 07:09] LABS: Differential Indicated SCAN CRITERIA MET
[2023-12-17 07:50] LABS: Anisocytosis 2+; Differential Comment SCANNED; Microcytosis 1+; Ovalocyte 1+; Target Cells 1+; Tear Drop Cell 1+
[2023-12-17] MEDS: Potassium Chloride Oral Tablet 20 MEQ PO (09:20)
[2023-12-17] MEDS: Metoprolol(XL)Succ 50 MG Tablet PO (09:20)
[2023-12-17] MEDS: Pantoprazole Sodium 40 MG Tablet PO (09:20)
[2023-12-17] MEDS: KETOTIFEN FUMARATE 1 EACH EYE (09:21)
[2023-12-17] MEDS: busPIRone 15 MG TABLET PO (09:21)
--- NOTE | 2023-12-17 09:41 | PCM.DC.SUM ---
Providers Date of Admission: 12/14/23 Date of Discharge: 12/17/23 Primary Care Physician: Dr. Matt Rocha MD Consultations 12/14/23 16:03 Consult: [employer] / Pulmonary Medicine Routine Consulting Provider: Intensivists/Pulmonary Med Reason for Consult: acute hypoxic respiratory failure EMERGENT Consult: No Notified: Yes Date Notified: 12/14/23 Time Notified: 14:23 Method of Notification: Text 12/15/23 07:08 Consult: Cardiology Routine Consulting Provider: Vinny Root Reason for Consult: CHF, CAD, exertional dyspnea with hypoxia EMERGENT Consult: No MD Notified: Yes Date Notified: 12/15/23 Time Notified: 07:08 Method of Notification: Verbal Reason For Visit: ACUTE HYPOXIC RESPIRATORY FAILURE Diagnosis Discharge Diagnosis (1) Heart failure: Status: Acute Code(s): I50.9 - Heart failure, unspecified Qualifiers: Heart failure chronicity: acute on chronic Heart failure type: diastolic Qualified Code(s): I50.33 - Acute on chronic diastolic (congestive) heart failure (2) History of coronary artery stent placement: Status: Resolved Code(s): Z95.5 - Presence of coronary angioplasty implant and graft (3) Presence of cardiac pacemaker: Status: Resolved Code(s): Z95.0 - Presence of cardiac pacemaker (4) Longstanding persistent atrial fibrillation: Status: Chronic Code(s): I48.11 - Longstanding persistent atrial fibrillation (5) Essential (primary) hypertension: Status: Chronic Code(s): I10 - Essential (primary) hypertension (6) Anemia: Status: Acute Code(s): D64.9 - Anemia, unspecified Plan Patient is an 83-year-old lady who presented with a 4-week history of progressive shortness of breath. Patient was found to be hypoxic with oxygen saturation 84% on room air on admission. An assessment of acute hypoxic respiratory failure secondary to acute congestive heart failure made placed on noninvasive ventilation BiPAP admitted to the intensive care unit for subsequent management 1. Acute hypoxic respiratory failure ? Secondary to congestive heart failure. Admitted to the intensive care unit with treatment of the underlying condition as well as use of noninvasive ventilation BiPAP ? 12/16/2023; patient was weaned off BiPAP currently on 4 L flow per minute nasal cannula ? Patient was weaned off oxygen was assessed for home oxygen but she did not qualify 2. Acute on chronic congestive heart failure with preserved ejection fraction ? Patient presented with respiratory failure placed on BiPAP. Admitted to the intensive care unit managed with Lasix drip 2D echo from 03/17/2023 demonstrated normal LV function. Placed on strict input and output Daily weight I's and O's and repeat echo ordered. ? 12/16/2023; patient responding to diuretic therapy ?12/17/2023 echo results as above Normal LV size. Left ventricular systolic function is normal. The left ventricular ejection fraction is 55 %. Pulmonary artery systolic pressure is 50 mmHg. The left atrium is severely enlarged. The right atrium is severely enlarged 3. Paroxysmal A-fib ? Rate controlled on metoprolol on systemic anticoagulation with rivaroxaban 4. Hypertension - Blood pressure controlled, home medications continued with dose adjustment as needed 5. Dyslipidemia -Patient is on statin therapy, continued at home dose 6. Class I obesity with BMI of 32.1 ? Complicating care weight loss advised 7. Chronic kidney disease stage III ? Baseline creatinine 1.3 creatinine on admission was 1.56 suspected to be secondary to hypoperfusion from patient's CHF do expect improvement with diuresis 8. Hypokalemia ? Corrected per protocol repeat labs ordered in a.m. ? 12/16/2023; patient potassium significantly down, additional replacement given patient placed on scheduled potassium replacement 9. Anemia - Secondary to chronic disorder monitoring H&H and transfuse if patient becomes symptomatic or hemoglobin falls below 7 10. Diabetes mellitus type II -patient's oral hypoglycemics held. Placed on long acting insulin, Accu-Cheks a.c. and at bedtime and covered with sliding scale insulin 11. Conduction system disorder ? Status post pacemaker placement 12. DVT prophylaxis ? Patient is on rivaroxaban Time spent in the patient's overall evaluation,decision-making process, review of diagnostic data, adjustment of management, discussion with other providers, nursing nursing and ancillary staff involved in patient's care documentation, 35 Minutes Medications at Discharge Home Medications buspirone 15 mg tablet 15 mg PO BID ANXIETY 06/02/13 omeprazole 40 mg capsule,delayed release 40 mg PO DAILY ACID REFLUX 06/02/13 nitroglycerin 0.4 mg sublingual tablet 0.4 mg sublingual Q5M PRN CHEST PAIN 04/21/15 glimepiride 4 mg tablet 4 mg PO DAILY DIABETES 01/24/22 acetaminophen 500 mg capsule 1,000 mg PO Q4H PRN PAIN 02/17/23 amitriptyline 50 mg tablet 50 mg PO QHS DEPRESSION 02/17/23 empagliflozin 10 mg tablet (Jardiance) 10 mg PO DAILY DIABETES 02/17/23 ketotifen fumarate 0.025 % (0.035 %) eye drops (Alaway) 1 drp ophthalmic (eye) BID ITCHING/ALLERGIES 02/17/23 amlodipine 10 mg tablet 10 mg PO DAILY BLOOD PRESSURE 12/14/23 levothyroxine 100 mcg tablet (Synthroid) 100 mcg PO DAILY THYROID 12/14/23 rivaroxaban 20 mg tablet (Xarelto) 20 mg PO DAILY BLOOD THINNER 12/14/23 simvastatin 20 mg tablet 20 mg PO QHS CHOLESTEROL 12/14/23 tizanidine 4 mg tablet 4 mg PO Q8H PRN MUSCLE SPASMS 12/14/23 potassium chloride 20 mEq tablet,extended release(part/cryst) 20 meq PO DAILY #30 tabs 12/16/23 furosemide 40 mg tablet (Lasix) 40 mg PO DAILY #60 tabs 12/17/23 metoprolol succinate 50 mg tablet,extended release 24 hr 50 mg PO DAILY #60 tabs 12/17/23 Physical Exam Narrative GENERAL: cooperative HEENT: Atraumatic; normocephalic EYES; Anicteric, Normal Conjunctiva NECK; supple, normal thyroid, RESPIRATORY: Diminished to auscultation CARDIOVASCULAR: Regular S1 S2, GI: soft, normoactive bowel sounds, : No Renal angle tenderness; EXTREMITIES: No edema, no clubbing, MUSCULOSKELETAL: no muscle wasting NEURO: Awake; no lateralizing signs. SKIN: No Rash PSYCH; Flat affect Weight / BMI Weight Weight: 92.1 kg Body Mass Index (BMI) 30.9 ABG / Lab / Microbiology Data 12/17/23 05:36 12/17/23 05:36 Laboratory: Laboratory Results - last 24 hr 12/16/23 11:18: POC Glucose 245 H 12/16/23 16:42: POC Glucose 93 12/16/23 21:38: POC Glucose 194 H 12/17/23 05:36: WBC 5.6, RBC 4.13 L, Hgb 10.5 L, Hct 36.8 L, MCV 89.1, MCH 25.4 L, MCHC 28.5 L, RDW Std Deviation 64.6 H, RDW Coeff of Jose Alberto 20.2 H, Plt Count 351, MPV 10.0, Immature Gran % (Auto) 0.400, Neut % (Auto) 60.8, Lymph % (Auto) 19.1, [place] % (Auto) 16.5 H, Eos % (Auto) 2.7, Baso % (Auto) 0.5, Absolute Neuts (auto) 3.4, Absolute Lymphs (auto) 1.06, Nucleated RBC % 0, Differential Comment SCANNED, Anisocytosis 2+, Microcytosis 1+, Target Cells 1+, Tear Drop Cells 1+, Ovalocytes 1+, Sodium 136, Potassium 3.4 L, Chloride 102, Carbon Dioxide 27.0, Anion Gap 7, BUN 31 H, Creatinine 1.61 H, Estim Creat Clear Calc 30.87, Est GFR (MDRD) Af Amer 39 L, Est GFR (MDRD) Non-Af 32 L, BUN/Creatinine Ratio 19.3, Glucose 134 H, Calcium 9.3 12/17/23 06:09: POC Glucose 136 H Microbiology: Microbiology 12/14/23 10:40 Mucosa - Nasopharyngeal SARS-CoV-2, Influenza & RSV (PCR) - Final D/C Instructions Discharge Diet: 1800 Calorie Control Diet, 8 Cup Fluid Restriction and 2000 mg Sodium Diet Discharge Activity: Return to Normal Activity Call your doctor if you observe: Fever of 101 or Higher, Shortness of breath, Fainting spells and Chest pain Meaningful Use Info Meaningful Use Meaningful Use Diagnoses (Choose all that apply): CHF CHF LISANDRA/ARB ordered at discharge?: No Reason LISANDRA/ARB not ordered?: Normal EF Documented LVEF (%): 55 Ischemic Stroke Statin Dosing Therapy Reference: STATIN DOSE THERAPY REFERENCE: * Patients > 75 years receive moderate or high dose statin therapy. * Patients 75 years or YOUNGER should receive HIGH intensity statin dose unless contraindicated. You will be required to document reason for non-treatment if statin daily dose does not meet guidelines. HIGH DOSE STATIN THERAPY DAILY Atorvastatin > than or = to 40 mg Rosuvastatin > than or = to 20 mg Amlodipine + Atorvastatin > than or = to 2.5/40 mg Ezetimibe + Simvastatin 10/80 mg Simvastatin 80mg Discharge Plan Admission Admit Date/Time: 12/14/23 14:19 Attending Provider: Deandre Kearns Primary Care Provider: Matt Rocha Consulting Providers: Joanne Vo; Vinny Root Discharge Orders/Prescriptions Prescriptions: New potassium chloride 20 mEq Tablet,Er Particles/Crystals 20 meq PO DAILY Qty: 30 0RF metoprolol succinate 50 mg Tablet Extended Release 24 Hr 50 mg PO DAILY Qty: 60 0RF furosemide [Lasix] 40 mg tablet 40 mg PO DAILY Qty: 60 0RF Continued acetaminophen 500 mg capsule 1,000 mg PO Q4H PRN (Reason: PAIN ) glimepiride 4 mg tablet 4 mg PO DAILY amitriptyline 50 mg tablet 50 mg PO QHS Jardiance 10 mg tablet 10 mg PO DAILY ketotifen fumarate [Alaway] 0.025 % (0.035 %) drops 1 drp ophthalmic (eye) BID omeprazole 40 MG capsule 40 mg PO DAILY buspirone 15 MG tablet 15 mg PO BID nitroglycerin 0.4 MG tablet 0.4 mg SUBLINGUAL Q5M PRN (Reason: CHEST PAIN ) levothyroxine [Synthroid] 100 mcg tablet 100 mcg PO DAILY tizanidine 4 mg tablet 4 mg PO Q8H PRN (Reason: MUSCLE SPASMS ) amlodipine 10 mg tablet 10 mg PO DAILY simvastatin 20 mg tablet 20 mg PO QHS Xarelto 20 mg tablet 20 mg PO DAILY Discontinued metoprolol succinate 25 mg tablet extended release 24 hr 25 mg PO DAILY losartan 100 mg tablet 100 mg PO DAILY hydrochlorothiazide 12.5 mg tablet 12.5 mg PO DAILY Referrals / Follow Up: Matt Rocha MD [Primary Care Provider] - Within 2 Weeks Disposition Disposition (needs filled in before D/C Order can be placed): Home, Self Care Charges/Coding Visit Charges Inpatient E&M: 00964 Disch Hosp >30min
--- NOTE | 2023-12-17 09:59 | CASEMGMT ---
Addendum entered by Kemi Rodriguez 12/17/23 10:30: Pt did not qualify for home oxygen per the [employer] mill[employer]. Original Note: RN CM to pt room at this time regarding DC planning. Pt states that she is ready to go home today. This RN CM reviewed how the pt did with therapy. Pt states that she wants to go home and denies the need for additional therapy at home. Pt denies HHC and OP therapy needs. Pt is also currently on RA. Oxygen testing pending. This RN CM educated the pt that this RN CM will help set up home O2 if she qualifies. Will continue to monitor. Pt denies further questions or concerns at this time.
--- NOTE | 2023-12-17 11:30 | PHA.DC.MC.R ---
Pharmacy [facility] has performed discharge medication reconciliation and counseling for this patient. The patient's discharge medication list was reviewed for discrepancies and discrepancies were resolved. The patient was counseled on the following discharge medications and changes in medications for homegoing were reviewed. 1. POTASSIUM CHLORIDE TABS 2. LASIX 3. METOPROLOL The Reason for Use, instructions for use, and potential side effects were reviewed for all new medications. The patient's questions regarding all of their medications were answered. The patient was able to verbally demonstrate an understanding of their discharge medications. Patient was counselled by Doyle Zuleta PharmD Candidate Note: Patient's Lasix and metoprolol were sent to [facility], and the KCl to [facility] in [place]. Patient requests all medications be filled at [facility]. Contacted [facility] to have them transfer the Lasix and metoprolol to [facility] per patient request. Medications at Discharge Home Medications buspirone 15 mg tablet 15 mg PO BID ANXIETY 06/02/13 omeprazole 40 mg capsule,delayed release 40 mg PO DAILY ACID REFLUX 06/02/13 nitroglycerin 0.4 mg sublingual tablet 0.4 mg sublingual Q5M PRN CHEST PAIN 04/21/15 glimepiride 4 mg tablet 4 mg PO DAILY DIABETES 01/24/22 acetaminophen 500 mg capsule 1,000 mg PO Q4H PRN PAIN 02/17/23 amitriptyline 50 mg tablet 50 mg PO QHS DEPRESSION 02/17/23 empagliflozin 10 mg tablet (Jardiance) 10 mg PO DAILY DIABETES 02/17/23 ketotifen fumarate 0.025 % (0.035 %) eye drops (Alaway) 1 drp ophthalmic (eye) BID ITCHING/ALLERGIES 02/17/23 amlodipine 10 mg tablet 10 mg PO DAILY BLOOD PRESSURE 12/14/23 levothyroxine 100 mcg tablet (Synthroid) 100 mcg PO DAILY THYROID 12/14/23 rivaroxaban 20 mg tablet (Xarelto) 20 mg PO DAILY BLOOD THINNER 12/14/23 simvastatin 20 mg tablet 20 mg PO QHS CHOLESTEROL 12/14/23 tizanidine 4 mg tablet 4 mg PO Q8H PRN MUSCLE SPASMS 12/14/23 potassium chloride 20 mEq tablet,extended release(part/cryst) 20 meq PO DAILY #30 tabs 12/16/23 furosemide 40 mg tablet (Lasix) 40 mg PO DAILY #60 tabs 12/17/23 metoprolol succinate 50 mg tablet,extended release 24 hr 50 mg PO DAILY #60 tabs 12/17/23
== END 2023-12-17 12:09 | disposition home or self-care (01) | DRG 291 ==
LOC: ED 12:07 → ICU 14:28 → PCU 12-16 17:13
PROVIDERS: Internal Medicine Critical Care Medicine; Admitting Provider Student in an Organized Health Care Education/Training Program; Emergency Provider Emergency Medicine; PCP Family Medicine; Visit Provider Internal Medicine
DX: I13.0 Hypertensive heart and chronic kidney disease with heart failure and stage 1 through stage 4 chronic kidney disease, or unspecified chronic kidney disease (principal); J96.01 Acute respiratory failure with hypoxia; I50.33 Acute on chronic diastolic (congestive) heart failure; E11.22 Type 2 diabetes mellitus with diabetic chronic kidney disease; D64.9 Anemia, unspecified; E03.9 Hypothyroidism, unspecified; E66.9 Obesity, unspecified; N18.30 Chronic kidney disease, stage 3 unspecified; I48.0 Paroxysmal atrial fibrillation; E78.5 Hyperlipidemia, unspecified; I25.10 Atherosclerotic heart disease of native coronary artery without angina pectoris; E87.6 Hypokalemia; I25.2 Old myocardial infarction; Z95.0 Presence of cardiac pacemaker; Z79.899 Other long term (current) drug therapy; Z79.84 Long term (current) use of oral hypoglycemic drugs; Z95.5 Presence of coronary angioplasty implant and graft; Z87.891 Personal history of nicotine dependence; Z79.01 Long term (current) use of anticoagulants; Z68.32 Body mass index [BMI] 32.0-32.9, adult
CPT/HCPCS: 36415; 36600; 51702; 71045; 71275; 80048; 80053; 82803; 82962; 83605; 83735; 83880; 84100; 84443; 84484; 85025; 86850; 86900; 86901; 87631; 93005; 93306; 94002; 94003; 94640; 97162; 97166; 99285; P9047; Q9957; Q9967; A4216; J1940

== ENCOUNTER 2024-02-06 13:26 | Emergency (ER) | payer MEDICARE, BC, SELFPAY ==
[2024-02-06 13:26] VITALS: BP 131/75; PULSE 90; RESP 22; TEMP 36.2; O2SAT 95
--- NOTE | 2024-02-06 13:58 | CT_ITS ---
EXAM: CT THORACIC AND LUMBAR SPINE WITHOUT INTRAVENOUS CONTRAST CLINICAL INDICATION: back pain TECHNIQUE: Helically acquired images were obtained of the thoracic and lumbar spine without intravenous contrast. 2D reformats were reviewed. This CT exam was performed using one or more of the following dose reduction techniques: automated exposure control, adjustment of the mA and/or kV according to patient size, and/or use of iterative reconstruction technique. Coronal and sagittal reformatted images were created and reviewed. RADIATION DOSE: CTDIvol = 20.77 mGy, DLP = 675.96 mGy-cm COMPARISON: 08/15/2022 FINDINGS: VERTEBRAE: Severe compression fracture with near plana deformity involving T12 vertebral body remains stable with similar retropulsion. There is new moderate compression fracture of T8 involving the superior more the inferior endplates with mild degree of retropulsion. Relative sclerosis of T8 vertebral body may represent compressive changes of the trabecula, although an underlying sclerotic lesion is not excluded. Grade 1 spondylolisthesis L4-L5 due to facet arthropathy. DISCS/SPINAL CANAL/NEURAL FORAMINA: There is acquired canal stenosis at predominately L4-L5 due to disc bulging, facet arthropathy and ligamentum flavum hypertrophy poorly characterized on noncontrasted CT. Broad posterior disc bulging at L2-L3, L3-L4 and L4-L5. VASCULATURE: Atherosclerosis of the thoracic aorta and abdominal aorta. Slight atherosclerosis of the left lower lobe. LYMPH NODES: Unremarkable. No retroperitoneal adenopathy. LUNGS AND PLEURAL SPACES: Unremarkable as visualized. No mass. No consolidation or edema. No pleural effusion or thickening. No pneumothorax. CT/Spine Thoracic without Contras IMPRESSION: 1. T8 compression fracture, new since 2022. 2. Chronic changes, as above, including degenerative disc disease with acquired canal stenosis predominantly at L4-L5. Electronically Signed: Flako Camilo MD ([place]) at 14:56 EDT ,
--- NOTE | 2024-02-06 13:58 | CT_ITS ---
EXAM: CT THORACIC AND LUMBAR SPINE WITHOUT INTRAVENOUS CONTRAST CLINICAL INDICATION: back pain TECHNIQUE: Helically acquired images were obtained of the thoracic and lumbar spine without intravenous contrast. 2D reformats were reviewed. This CT exam was performed using one or more of the following dose reduction techniques: automated exposure control, adjustment of the mA and/or kV according to patient size, and/or use of iterative reconstruction technique. Coronal and sagittal reformatted images were created and reviewed. RADIATION DOSE: CTDIvol = 20.77 mGy, DLP = 675.96 mGy-cm COMPARISON: 08/15/2022 FINDINGS: VERTEBRAE: Severe compression fracture with near plana deformity involving T12 vertebral body remains stable with similar retropulsion. There is new moderate compression fracture of T8 involving the superior more the inferior endplates with mild degree of retropulsion. Relative sclerosis of T8 vertebral body may represent compressive changes of the trabecula, although an underlying sclerotic lesion is not excluded. Grade 1 spondylolisthesis L4-L5 due to facet arthropathy. DISCS/SPINAL CANAL/NEURAL FORAMINA: There is acquired canal stenosis at predominately L4-L5 due to disc bulging, facet arthropathy and ligamentum flavum hypertrophy poorly characterized on noncontrasted CT. Broad posterior disc bulging at L2-L3, L3-L4 and L4-L5. VASCULATURE: Atherosclerosis of the thoracic aorta and abdominal aorta. Slight atherosclerosis of the left lower lobe. LYMPH NODES: Unremarkable. No retroperitoneal adenopathy. LUNGS AND PLEURAL SPACES: Unremarkable as visualized. No mass. No consolidation or edema. No pleural effusion or thickening. No pneumothorax. CT/Spine Lumbar without Contrast IMPRESSION: 1. T8 compression fracture, new since 2022. 2. Chronic changes, as above, including degenerative disc disease with acquired canal stenosis predominantly at L4-L5. Electronically Signed: Flako Camilo MD ([place]) at 14:57 EDT ,
[2024-02-06] MEDS: Ondansetron ODT 4 MG Tablet PO (14:33)
[2024-02-06] MEDS: Morphine 4 MG/ML Syringe IM (14:34)
[2024-02-06 15:26] VITALS: BP 135/72; PULSE 81; RESP 19; O2SAT 98
[2024-02-06 16:37] VITALS: BP 131/73; PULSE 81; RESP 18; TEMP 36.6; O2SAT 99
--- NOTE | 2024-02-06 16:38 | ED.VIS.BACK ---
HPI History of Present Illness Chief Complaint: Back Narrative Narrative: 83-year-old female presenting with back pain. She states it starts in the middle and goes all the way around to her flanks. Patient has a history of compression fracture in the past. No loss of bladder or bowel control. No saddle anesthesia. Patient denies any direct trauma. She has tried Tylenol and ibuprofen without help. She had a old prescription for Percocet which she took one of them did help her pain although she still has pain when she moves. [facility] Medical History Iron deficiency anemia History of non-ST elevation myocardial infarction (NSTEMI) (2013) Longstanding persistent atrial fibrillation Essential (primary) hypertension Anxiety Hypothyroidism Hyperlipidemia Secondary pulmonary arterial hypertension Atherosclerosis of coronary artery of [place] heart without angina pectoris Paroxysmal atrial fibrillation Paroxysmal atrial flutter Sick sinus syndrome Home Medications ?Medication ?Instructions ?Recorded ?Last Taken ?Type buspirone 15 mg tablet 15 mg PO BID ANXIETY 06/02/13 Unknown History omeprazole 40 mg capsule,delayed 40 mg PO DAILY ACID REFLUX 06/02/13 09/15/16 08:30 History release nitroglycerin 0.4 mg sublingual 0.4 mg sublingual Q5M PRN CHEST 04/21/15 Unknown History tablet PAIN glimepiride 4 mg tablet 4 mg PO DAILY DIABETES 01/24/22 Unknown History acetaminophen 500 mg capsule 1,000 mg PO Q4H PRN PAIN 02/17/23 Unknown History amitriptyline 50 mg tablet 50 mg PO QHS DEPRESSION 02/17/23 Unknown History empagliflozin 10 mg tablet 10 mg PO DAILY DIABETES 02/17/23 Unknown History (Jardiance) ketotifen fumarate 0.025 % (0.035 1 drp ophthalmic (eye) BID 02/17/23 Unknown History %) eye drops (Alaway) ITCHING/ALLERGIES amlodipine 10 mg tablet 10 mg PO DAILY BLOOD PRESSURE 12/14/23 Unknown History levothyroxine 100 mcg tablet 100 mcg PO DAILY THYROID 12/14/23 Unknown History (Synthroid) rivaroxaban 20 mg tablet (Xarelto) 20 mg PO DAILY BLOOD THINNER 12/14/23 Unknown History simvastatin 20 mg tablet 20 mg PO QHS CHOLESTEROL 12/14/23 Unknown History tizanidine 4 mg tablet 4 mg PO Q8H PRN MUSCLE SPASMS 12/14/23 Unknown History potassium chloride 20 mEq 20 meq PO DAILY #30 tabs 12/16/23 Unknown Rx tablet,extended release(part/cryst) furosemide 40 mg tablet (Lasix) 40 mg PO DAILY #60 tabs 12/17/23 Unknown Rx metoprolol succinate 50 mg 50 mg PO DAILY #60 tabs 12/17/23 Unknown Rx tablet,extended release 24 hr oxycodone-acetaminophen 5 mg-325 1 tab PO Q6H PRN pain 3 days #12 02/06/24 Unknown Rx mg tablet (Percocet) tabs Allergy/AdvReac Type Severity Reaction Status Date / Time poison fany extract (Poison Allergy Rash Verified 02/06/24 13:26 Fany Extract) Sulfa (Sulfonamide Allergy Hives Verified 02/06/24 13:26 Antibiotics) Family History Mother Cancer Father Cancer Brother CAD (coronary artery disease) Sister CAD (coronary artery disease) Surgical History History of tubal ligation History of appendectomy History of hysterectomy History of left heart catheterization (10/09/13) History of coronary artery stent placement (09/2010) Hx of atrioventricular node ablation (03/31/16) Presence of cardiac pacemaker (04/26/15) Social History Smoking Status: Former smoker how long ago did patient quit smokin's alcohol intake: never substance use type: does not use caffeine: Yes Type: coffee Number of servings: 3 ROS ROS ED Constitutional Constitutional ED: Denies chills, fever(s) or sweats Eyes Eyes: Denies blurry vision or change in vision ENT ENT ED: Denies ear pain or sore throat Cardiovascular Cardiovascular: Denies chest pain, palpitations or racing heartbeat Respiratory/Chest Respiratory/Chest: Denies cough, dyspnea or sputum Gastrointestinal Gastrointestinal: Denies abdominal pain, constipation, diarrhea, nausea or vomiting Genitourinary Genitourinary ED: Denies dysuria, hematuria or urinary frequency Musculoskeletal Musculoskeletal: Reports back pain; Denies arthralgias, myalgias or neck pain Integumentary Denies abscess, Abrasions or rash Neurologic Neurologic: Denies headache(s), paresthesias or weakness Psychiatric Psychiatric: Denies anxiety, depression, suicidal ideation or suicidal thoughts Endocrine Endocrinology: Denies polydipsia or polyuria EXAM Physical Exam Const Vital Signs: 02/06/24 13:26 02/06/24 15:26 02/06/24 16:37 Temperature 97.2 F L 98 F Temperature Source Temporal Pulse Rate 90 81 81 Respiratory Rate 22 H 19 H 18 Blood Pressure 131/75 H 135/72 H 131/73 H Blood Pressure Mean 93 93 92 Pulse Ox 95 98 99 Oxygen Delivery Method Room Air Room Air Positive well nourished General Appearance ED: NAD Eyes PERRL and EOMs intact bilaterally Resp normal respiratory effort and clear to auscultation bilaterally Cardio regular rate and regular rhythm GI normal to inspection, nondistended, normoactive bowel sounds Back/Spine Back/Spine Narrative: Tenderness to palpation over T8-T9 without any step-off. There is no rashes. No bruising. Extremity normal to inspection Neuro oriented x3 Sensorium / Orientation: alert MDM MDM MDM Narrative Medical decision making narrative: Patient initially declined pain medicine but she was unable to lay on the CT table for her lumbar and thoracic spine CTs. She was given IM morphine and oral Zofran. She was able to lay down on the CT scanner at this point. Lumbar and thoracic spine CTs show a T8 compression fracture which is new and old T12 compression fracture which is stable. Patient states that she has followed up for the previous 1 and [place] at [facility] and they told her there was nothing they can do about it. I will give her follow-up with local orthopedic spine. She is amenable to this. I wrote her prescription for Percocet. Impression: 1. T8 compression fracture Lab Data Attestation: I reviewed the patient's lab results. Radiography Diagnostic Testing: Clinical Impression(s) from Imaging Studies Lumbar Spine CT 02/06/24 13:58 IMPRESSION: 1. T8 compression fracture, new since 2022. 2. Chronic changes, as above, including degenerative disc disease with acquired canal stenosis predominantly at L4-L5. Electronically Signed: Flako Camilo MD ([place]) at 14:57 EDT , Thoracic Spine CT 02/06/24 13:58 IMPRESSION: 1. T8 compression fracture, new since 2022. 2. Chronic changes, as above, including degenerative disc disease with acquired canal stenosis predominantly at L4-L5. Electronically Signed: Flako Camilo MD ([place]) at 14:56 EDT , Discharge Plan Triage Chief Complaint: Back ED Provider: Howard Sousa Dx/Rx/DC Orders Instructions: Compression Fx Prescriptions: New oxycodone-acetaminophen [Percocet] 5-325 mg tablet 1 tab PO Q6H PRN (Reason: pain) 3 Days Qty: 12 0RF No Action acetaminophen 500 mg capsule 1,000 mg PO Q4H PRN (Reason: PAIN ) glimepiride 4 mg tablet 4 mg PO DAILY amitriptyline 50 mg tablet 50 mg PO QHS Jardiance 10 mg tablet 10 mg PO DAILY ketotifen fumarate [Alaway] 0.025 % (0.035 %) drops 1 drp ophthalmic (eye) BID omeprazole 40 MG capsule 40 mg PO DAILY buspirone 15 MG tablet 15 mg PO BID nitroglycerin 0.4 MG tablet 0.4 mg SUBLINGUAL Q5M PRN (Reason: CHEST PAIN ) levothyroxine [Synthroid] 100 mcg tablet 100 mcg PO DAILY tizanidine 4 mg tablet 4 mg PO Q8H PRN (Reason: MUSCLE SPASMS ) amlodipine 10 mg tablet 10 mg PO DAILY simvastatin 20 mg tablet 20 mg PO QHS Xarelto 20 mg tablet 20 mg PO DAILY potassium chloride 20 mEq Tablet,Er Particles/Crystals 20 meq PO DAILY Qty: 30 0RF metoprolol succinate 50 mg Tablet Extended Release 24 Hr 50 mg PO DAILY Qty: 60 0RF furosemide [Lasix] 40 mg tablet 40 mg PO DAILY Qty: 60 0RF Primary Care Provider: Matt Rocha Referrals: Nikhil Mcdonald MD [Med Staff - Active Staff] - 3-5 Days Matt Rocha MD [Primary Care Provider] - Print Language: Finnish Disposition Disposition: Home, Self Care
== END 2024-02-06 16:44 | disposition home or self-care (01) ==
PROVIDERS: Emergency Provider Student in an Organized Health Care Education/Training Program; PCP Family Medicine; Visit Provider Student in an Organized Health Care Education/Training Program
DX: M48.54XA Collapsed vertebra, not elsewhere classified, thoracic region, initial encounter for fracture (principal); I27.21 Secondary pulmonary arterial hypertension; I48.0 Paroxysmal atrial fibrillation; I25.10 Atherosclerotic heart disease of native coronary artery without angina pectoris; I10 Essential (primary) hypertension; E78.5 Hyperlipidemia, unspecified; E03.9 Hypothyroidism, unspecified; F41.9 Anxiety disorder, unspecified; Z79.01 Long term (current) use of anticoagulants; Z79.84 Long term (current) use of oral hypoglycemic drugs; Z79.890 Hormone replacement therapy; Z79.899 Other long term (current) drug therapy; Z87.891 Personal history of nicotine dependence; Z95.5 Presence of coronary angioplasty implant and graft
CPT/HCPCS: 72128; 72131; 96372; 99282; A4216

== ENCOUNTER → 2024-03-22 | Outpatient (CLI) | payer MEDICARE, BC, SELFPAY ==
--- NOTE | 2024-03-22 | BON_PTH ---
PATIENT: ANTONIO GUPTA LOC: [facility] U#:[id number] AGE/SX: 83/F ROOM: RE03/22/[address]: Dr. Stepan Ott MD : [id number] BED: DIS: 03/22/2024 SPEC #: [id number] RECD: 03/22/24 15:06 STATUS: ROGER DAFNE #: [id number] JIMBO: 03/22/24 00:[address]: Stepan Ott DEPT: SURGICAL PATHOLOGY RECD BY: Amanda Yeboah ENTERED: 03/23/24 08:00 SP TYPE: Bone OTHR DR: Dr. Matt Rocha MD [facility] Tissues: Vertebra, NOS Procedures: Decalcification bone/plaque Surgery Specimen Level IV HEADER OPERATION: Kyphoplasty at T8 with biopsy under fluoroscopy PRE-OP DIAGNOSIS: Age-related osteoporosis with current pathologic fracture, vertebrae, initial encounter for fracture TISSUE SUBMITTED: Vertebral body T8 MICROSCOPIC DIAGNOSIS Vertebral body T8, bone biopsy: Consistent with organizing fracture site. No evidence of malignancy. Eddie 03/24/2024 MICROSCOPIC DESCRIPTION Slides are reviewed. GROSS DESCRIPTION Received in fixative is one container labeled with the patient's name and designated Vertebral body of T8. The specimen consists of a fragment of bone measuring 0.3 x 0.1 x 0.1cm. The entire specimen is submitted in one cassette after decalcification. 03/23/2024 TC:5 CPT:59580,33039
== END | disposition home or self-care (01) ==
LOC: LABSPEC 15:43
PROVIDERS: PCP Family Medicine; Referring Provider Anesthesiology Pain Medicine; Visit Provider Anesthesiology Pain Medicine
DX: M80.08XA Age-related osteoporosis with current pathological fracture, vertebra(e), initial encounter for fracture (principal)
CPT/HCPCS: 88305; 88311

== ENCOUNTER 2024-03-25 09:53 | Inpatient (IN) | payer MEDICARE, BC, SELFPAY ==
[2024-03-25] VITALS (34 sets, daily range): BP systolic 99–155; BP diastolic 47–104; PULSE 90–112; RESP 16–94; TEMP 36.2–37.2; O2SAT 82–96; BMI 30.4; BMI 30.7
--- NOTE | 2024-03-25 10:17 | RAD_ITS ---
STUDY: X-RAY CHEST REASON FOR EXAM: Female, 83 years old. Respiratory failure, cyanosis, decreased breath so TECHNIQUE: Single AP portable view of the chest. COMPARISON: Comparison is made with prior study dated December 14, 2023. FINDINGS: EKG electrodes are seen. Vascular congestion and CHF. Stable bibasilar atelectasis and/or infiltration superimposed on chronic basilar scarring. Blunting of the left costophrenic angle. A left-sided dual-chamber pacemaker is seen. Mild cardiomegaly. Normal mediastinum and radha. Normal visualized pulmonary arteries. There is atherosclerotic calcification of the aortic arch with tortuosity. There are diffuse degenerative changes of the visualized thoracic spine. Normal visualized ribs, clavicles, and shoulders. There is no demonstrated abnormality of the visualized soft tissue structures of the upper abdomen. RAD/Chest 1 View (Portable) IMPRESSION: Mild degree of CHF with superimposed bibasilar infiltration and/or atelectasis on the chronic basilar scarring. Cardiomegaly. Electronically Signed: Bello Lozoya MD at 10:30 EDT ,
[2024-03-25 10:24] LABS: Absolute Lymphocyte Count 0.96 X10^3/uL (0.83-4.51); Absolute Neutrophil Count 6.6 X10^3/uL (2.0-7.7); Basophil# 0.04 X10^3/uL; Basophil% 0.5 % (0-1); Eosinophils% 2.3 % (0-5); Lymphocyte # 0.96 X10^3/ul (0.83-4.51); Lymphocyte % 11.2 % (19-41); Mean Corp Hgb Conc 30.8 g/dL (32-36); Mean Corpuscular Hgb 26.7 pg (27.0-32.0); Mean Corpuscular Volume 86.9 fL (81-99); Mean Platelet Vol. 9.7 fl (6.2-12.0); Monocyte% 9.3 % (0-10); NRBC Flagged by Analyzer 0 % (0-5); Neutrophil # 6.55 X10^3/uL (2.7-7.7); Neutrophil % 76.4 % (47-70); Platelet Count 385 K/mm3 (150-450); RBC Distribution Width CV 16.7 % (11.6-14.6); RBC Distribution Width SD 52.8 fl (35.1-43.9); Red Blood Count 4.49 M/mm3 (4.2-5.4); White Blood Count 8.6 K/mm3 (4.4-11.0)
[2024-03-25 10:25] LABS: Allen Test Positive; Base Excess 2 mmol/L (-2 to +2); Bicarbonate 26.2 mmol/L (22-26); Blood Gas Specimen Type ART; Mode Not entered; O2 Delivery Device Cannula; PO2 57 mmHG (75-100); SITE R Radial; SO2 90 % (95-99); Total Carbon Dioxide 27 mmol/L; pCO2 39.7 mmHg (35-45); pH 7.43 (7.35-7.45)
--- NOTE | 2024-03-25 10:33 | EDS_ITS ---
HPI History of Present Illness Chief Complaint: Shortness of Breath Detail of Chief Complaint: Shortness of breath started couple days ago Informant: patient and other (Dr. Joshua Baker called prior to patient arrival because of a pulse ox of 82%.) Onset/Context/Timing Onset: Days Context: sudden and unknown Timing: Continuous Quality: Positive for Dyspnea on exertion; Negative for Orthopnea, PND or Wheezing Maximum Severity: Severe Worsened by: Exertion and Lying flat Relieved by: Nothing Associated Symptoms Negative for cough, rhinorrhea, post nasal drip, ear pain, fever, sore throat, subjective, chills, sweats, clear sputum, white sputum, yellow sputum, green sputum or other Chest Pain: Positive for Intermittent (Left rib cage pain. Patient states she was told this would occur after the procedure, kyphoplasty) Narrative Narrative: Patient is a 83-year-old woman who has history of compression fracture and status post kyphoplasty beginning of this week, coronary artery disease with s tent placement, congestive heart failure, sick sinus syndrome, longstanding persistent atrial fibrillation, essential hypertension, hyperlipidemia, secondary pulmonary hypertension and multiple myeloma. She arrives from Joshua Baker's office. She was hypoxic. She appears cyanotic. She has conversational dyspnea. Patient is not a good informant. She has history of monoclonalopathy that she was seen by Dr. Oneill. Patient states she cannot lie flat. She denies PND. She denies chest discomfort. Patient had recent total body scan which revealed [address] Joshua Baker. Once patient is stabilized will need to work these up. PE Risk Factors: Positive for Cancer and Prior DVT or PE; Negative for OCP + Smoking + > 35, Recent immobilization, Recent surgery or Recent travel Prior similar symptoms: Yes Recent Illness/Hospitalization: No PFSH PFS Medical History Iron deficiency anemia History of non-ST elevation myocardial infarction (NSTEMI) (2013) Longstanding persistent atrial fibrillation Essential (primary) hypertension Anxiety Hypothyroidism Hyperlipidemia Secondary pulmonary arterial hypertension Atherosclerosis of coronary artery of [place] without angina pectoris Paroxysmal atrial fibrillation Paroxysmal atrial flutter Sick sinus syndrome Home Medications ?Medication ?Instructions ?Recorded ?Last Taken ?Type buspirone 15 mg tablet 15 mg PO BID ANXIETY 06/02/13 Unknown History omeprazole 40 mg capsule,delayed 40 mg PO DAILY ACID REFLUX 06/02/13 09/15/16 08:30 History release nitroglycerin 0.4 mg sublingual 0.4 mg sublingual Q5M PRN CHEST 04/21/15 Unknown History tablet PAIN glimepiride 4 mg tablet 4 mg PO DAILY DIABETES 01/24/22 Unknown History acetaminophen 500 mg capsule 1,000 mg PO Q4H PRN PAIN 02/17/23 Unknown History amitriptyline 50 mg tablet 50 mg PO QHS DEPRESSION 02/17/23 Unknown History empagliflozin 10 mg tablet 10 mg PO DAILY DIABETES 02/17/23 Unknown History (Jardiance) ketotifen fumarate 0.025 % (0.035 1 drp ophthalmic (eye) BID 02/17/23 Unknown History %) eye drops ([place]) ITCHING/ALLERGIES amlodipine 10 mg tablet 10 mg PO DAILY BLOOD PRESSURE 12/14/23 Unknown History levothyroxine 100 mcg tablet 100 mcg PO DAILY THYROID 12/14/23 Unknown History (Synthroid) rivaroxaban 20 mg tablet (Xarelto) 20 mg PO DAILY BLOOD THINNER 12/14/23 Unknown History simvastatin 20 mg tablet 20 mg PO QHS CHOLESTEROL 12/14/23 Unknown History potassium chloride 20 mEq 20 meq PO DAILY #30 tabs 12/16/23 Unknown Rx tablet,extended release(part/cryst) furosemide 40 mg tablet (Lasix) 40 mg PO DAILY #60 tabs 12/17/23 Unknown Rx metoprolol succinate 50 mg 50 mg PO DAILY #60 tabs 12/17/23 Unknown Rx tablet,extended release 24 hr oxycodone-acetaminophen 5 mg-325 1 tab PO Q6H PRN pain 3 days #12 02/06/24 Unknown Rx mg tablet (Percocet) tabs losartan 100 mg tablet 100 mg PO DAILY 03/25/24 Unknown History Allergy/AdvReac Type Severity Reaction Status Date / Time poison fany extract (Poison Allergy Rash Verified 03/25/24 09:54 Fany Extract) Sulfa (Sulfonamide Allergy Hives Verified 03/25/24 09:54 Antibiotics) Family History Mother Cancer Father Cancer Brother CAD (coronary artery disease) Sister CAD (coronary artery disease) Surgical History History of tubal ligation History of appendectomy History of hysterectomy History of left heart catheterization (10/09/13) History of coronary artery stent placement (09/2010) Hx of atrioventricular node ablation (03/31/16) Presence of cardiac pacemaker (04/26/15) Social History (Updated 03/25/24 @ 10:[address] Geoffrey Dodge MD) household members: spouse Smoking Status: Former smoker how long ago did patient quit smokin's alcohol intake: never substance use type: does not use caffeine: Yes Type: coffee Number of servings: 3 ROS ROS ED Constitutional Constitutional ED: Denies chills, fever(s), sweats or weight loss Eyes Eyes: Denies blurry vision, change in vision or diplopia ENT ENT ED: Denies ear pain, rhinorrhea or sore throat Cardiovascular Cardiovascular: Reports orthopnea; Denies chest pain, palpitations, paroxysmal nocturnal dyspnea or racing heartbeat Respiratory/Chest Respiratory/Chest: Reports dyspnea, dyspnea on exertion and orthopnea; Denies cough, paroxysmal nocturnal dyspnea or sputum Gastrointestinal Gastrointestinal: Denies abdominal pain, constipation, diarrhea, melena, nausea or vomiting Genitourinary Genitourinary ED: Reports other Details: Patient endorses decreased urine output. ; Denies dysuria, hematuria or urinary frequency Musculoskeletal Musculoskeletal: Reports back pain; Denies arthralgias or myalgias Integumentary Denies rash Neurologic Neurologic: Denies headache(s) or paresthesias Psychiatric Psychiatric: Denies anxiety or depression Hematologic/Lymphatic Hematologic/Lymphatic: Reports easy bleeding and easy bruising Allergic/Immunologic Allergic/Immunologic ED: Denies mouth swelling, tongue swelling or urticaria EXAM Physical Exam Const Vital Signs: 03/25/24 09:55 03/25/24 09:56 03/25/24 09:59 Temperature 97.6 F L 97.2 F L Temperature Source Temporal Temporal Pulse Rate 112 H 91 Respiratory Rate 26 H 94 H Respiratory Effort Respiratory Depth Respiratory Pattern Blood Pressure 139/78 H 139/60 H Blood Pressure Mean 98 86 Blood Pressure Source Blood Pressure Position Blood Pressure Location Pulse Ox 82 88 Oxygen Delivery Method Room Air Nasal Cannula Nasal Cannula Oxygen Flow Rate (L/min) 6 Fraction of Inspired Oxygen (FIO2) 03/25/24 10:08 03/25/24 10:11 03/25/24 10:15 Temperature Temperature Source Pulse Rate 91 91 Respiratory Rate 22 H 16 Respiratory Effort Short of Breath Respiratory Depth Shallow Respiratory Pattern Tachypnea Blood Pressure 133/65 H Blood Pressure Mean 85 Blood Pressure Source Blood Pressure Position Blood Pressure Location Pulse Ox 89 88 Oxygen Delivery Method Nasal Cannula Oxygen Flow Rate (L/min) 6 6 6 Fraction of Inspired Oxygen (FIO2) 03/25/24 10:16 03/25/24 10:30 03/25/24 10:45 Temperature Temperature Source Pulse Rate 91 91 Respiratory Rate 21 H 21 H Respiratory Effort Respiratory Depth Respiratory Pattern Blood Pressure 147/75 H 135/77 H Blood Pressure Mean 95 94 Blood Pressure Source Blood Pressure Position Blood Pressure Location Pulse Ox 93 94 Oxygen Delivery Method Nasal Cannula Oxygen Flow Rate (L/min) 6 15 Fraction of Inspired Oxygen (FIO2) 75 03/25/24 10:48 03/25/24 10:51 03/25/24 10:51 Temperature Temperature Source Pulse Rate Respiratory Rate Respiratory Effort Respiratory Depth Respiratory Pattern Blood Pressure 135/77 H Blood Pressure Mean 96 Blood Pressure Source Monitor Blood Pressure Position Sitting Blood Pressure Location Left Arm Pulse Ox 95 Oxygen Delivery Method Airvo Oxygen Flow Rate (L/min) 40 Fraction of Inspired Oxygen (FIO2) 75 75 03/25/24 10:56 03/25/24 11:00 03/25/24 11:15 Temperature 97.4 F L Temperature Source Temporal Pulse Rate 91 91 91 Respiratory Rate 22 H 19 H 22 H Respiratory Effort Respiratory Depth Respiratory Pattern Blood Pressure 141/76 H 141/76 H 99/47 L Blood Pressure Mean 97 94 62 Blood Pressure Source Blood Pressure Position Blood Pressure Location Pulse Ox 93 93 94 Oxygen Delivery Method High Flow Oxygen Flow Rate (L/min) Fraction of Inspired Oxygen (FIO2) 75 75 75 03/25/24 11:23 03/25/24 11:30 03/25/24 11:45 Temperature Temperature Source Pulse Rate 90 91 Respiratory Rate 21 H 24 H Respiratory Effort Respiratory Depth Respiratory Pattern Blood Pressure 132/88 H 140/65 H 142/73 H Blood Pressure Mean 97 85 91 Blood Pressure Source Blood Pressure Position Blood Pressure Location Pulse Ox 94 90 91 Oxygen Delivery Method Oxygen Flow Rate (L/min) Fraction of Inspired Oxygen (FIO2) 03/25/24 12:00 03/25/24 12:15 03/25/24 12:16 Temperature Temperature Source Pulse Rate 91 Respiratory Rate 20 H Respiratory Effort Respiratory Depth Respiratory Pattern Blood Pressure 141/80 H 145/80 H Blood Pressure Mean 96 96 Blood Pressure Source Blood Pressure Position Blood Pressure Location Pulse Ox 92 92 Oxygen Delivery Method High Flow Oxygen Flow Rate (L/min) 75 Fraction of Inspired Oxygen (FIO2) 03/25/24 12:27 03/25/24 12:29 03/25/24 12:30 Temperature 98.3 F Temperature Source Pulse Rate 91 90 Respiratory Rate 19 H 26 H Respiratory Effort Respiratory Depth Respiratory Pattern Blood Pressure 145/80 H 145/80 H 138/81 H Blood Pressure Mean 101 101 96 Blood Pressure Source Monitor Blood Pressure Position Sitting Blood Pressure Location Right Arm Pulse Ox 90 91 Oxygen Delivery Method Oxygen Flow Rate (L/min) Fraction of Inspired Oxygen (FIO2) 03/25/24 12:45 03/25/24 13:00 Temperature Temperature Source Pulse Rate 91 Respiratory Rate 20 H Respiratory Effort Respiratory Depth Respiratory Pattern Blood Pressure 140/74 H 129/99 H Blood Pressure Mean 92 104 Blood Pressure Source Blood Pressure Position Blood Pressure Location Pulse Ox 90 Oxygen Delivery Method Oxygen Flow Rate (L/min) Fraction of Inspired Oxygen (FIO2) Positive well nourished and well developed Constitutional Narrative: Patient is cyanotic even on 6 L by nasal cannula. She was converted to nonrebreather mask. Patient has conversational dyspnea. General Appearance ED: well developed; Negative for NAD HEENT Reports dry mucous membranes HEENT Narrative: Ears normal. Nares patent. Posterior pharynx is normal. atraumatic Mouth ED: Yes dry mucous membranes Mouth: dry mucous membranes Eyes PERRL and EOMs intact bilaterally General Eye ED: Negative for pale conjunctiva or scleral icterus Neck no lymphadenopathy, supple, no meningeal signs and No no JVD Resp No normal respiratory effort and No clear to auscultation bilaterally Auscultation: rales bilateral lower (There is decreased breath sounds on the left compared to the right. Patient's dressing noted. There is no blood noted. There is no erythema around the dressing.) Cardio regular rate, regular rhythm, S1 normal heart sound, S2 normal heart sound and no murmurs Cardio Narrative: Heart sounds are distant. GI non-tender, non-distended and no masses Auscultation: normoactive bowel sounds Palpation: soft Back/Spine no CVA tenderness Extremity Negative for normal to inspection General Extremety ED: Yes edema; Negative for tenderness General Extremity: edema Neuro oriented x3 and CN's II-XII intact bilaterally Neuro Narrative: Patient is hard of hearing. She is not a good informant. Sensorium / Orientation: alert Psych mental status grossly normal Skin Skin Narrative: Wound secondary to recent kyphoplasty thoracic vertebrae. MDM MDM MDM Narrative Medical decision making narrative: Differential diagnosis would include pneumothorax, [facility] pneumonia, congestive heart failure, pulmonary embolus. Suspect patient is in heart failure. She may also be in renal failure since she is reporting decreased urine output. Stat portable chest x-ray was obtained. Stat portable chest x- ray reveals congestive heart failure with atelectasis right greater than left. There is a pleural effusion noted on the left. There is evidence of cephalization. I do not appreciate curly B-lines. In light of this and the fact the patient is still tachypneic nonrebreather BiPAP was ordered. Respiratory recommended high flow versus BiPAP since she is ventilating sufficiently based on the ABG. Nitroglycerin drip was added for preload reduction. She is on Lasix. Will give additional dose of Lasix because clinically she is fluid overloaded. Dr. Elizabeth the hospitalist did see patient. I have a page out to him because in my opinion patient should go to the ICU. The supervisor twisting department spoke with the hospitalist. Apparently she has similar presentation and only required a 2-day stay. He did evaluate the patient in the emergency department. Therefore she will go to PCU. Lab Data Attestation: I reviewed the patient's lab results. Lab results narrative: CBC is remarkable for microcytic indices. Electrolyte panel reveals elevated creatinine of 1.37 with an estimated GFR of 37. Glucose is 170 with a normal CO2 and anion gap. Alkaline phosphatase slight elevated 161. First troponin is normal. BNP is pending. Labs: Laboratory Results - last 24 hr 03/25/24 10:08 WBC 8.6 RBC 4.49 Hgb 12.0 Hct 39.0 MCV 86.9 MCH 26.7 L MCHC 30.8 L RDW Std Deviation 52.8 H RDW Coeff of Jose Alberto 16.7 H Plt Count 385 MPV 9.7 Immature Gran % (Auto) 0.300 Neut % (Auto) 76.4 H Lymph % (Auto) 11.2 L [place] % (Auto) 9.3 Eos % (Auto) 2.3 Baso % (Auto) 0.5 Absolute Neuts (auto) 6.6 Absolute Lymphs (auto) 0.96 Nucleated RBC % 0 Sodium 132 L Potassium 2.9 L Chloride 99 Carbon Dioxide 24.0 Anion Gap 9 BUN 13 Creatinine 1.37 H Estim Creat Clear Calc 36.05 Est GFR (MDRD) Af Amer 47 L Est GFR (MDRD) Non-Af 39 L BUN/Creatinine Ratio 9.5 L Glucose 170 H Calcium 9.4 Total Bilirubin 0.50 AST 17 ALT 10 L Alkaline Phosphatase 161 H Troponin I High Sens 12 Total Protein 9.1 H Albumin 3.3 Globulin 5.8 H Albumin/Globulin Ratio 0.6 L ABG Data ABG results: ABG 03/25/24 10:21 Specimen Type ART Sample Site R Radial pH 7.43 Bicarbonate Actual 26.2 H Total CO2 27 Base Excess 2 O2 Saturation 90 L O2 % 6.0 ABG pCO2 39.7 ABG pO2 57 L Dean Test Positive O2 Delivery Device Cannula Vent Mode Not entered Radiography Chest X-Ray - ED: 1 View and Read by ED Physician (Limited disparate volume. There is an effusion on the left. There is evidence of congestive heart failure. There appears to be scarring on the left based on old films. This was a single view portable chest x-ray.) Diagnostic Testing: Clinical Impression(s) from Imaging Studies Chest X-Ray 03/25/24 10:17 IMPRESSION: Mild degree of CHF with superimposed bibasilar infiltration and/or atelectasis on the chronic basilar scarring. Cardiomegaly. Electronically Signed: Bello Lozoya MD at 10:30 EDT , EKG Initial EKG: Attestation: I personally reviewed and interpreted this EKG as follows: Interpretation: Paced (Ventricular paced rhythm rate of 90. Cures duration is 178 ms. QT duration is 466 ms.) Critical Care Time Critical Care Time: Yes Critical care time (excluding procedures): 30-74 minutes (33), Including time spent: (History, physical, documentation, independent rotation of laboratory results and treatment for decompensated congestive heart failure), Discussing w/Patient &/or Family/Tape Machine Tailer, Discussing w/Consultants (Hospitalist) and Arranging Admission or Transfer Discharge Plan Dx/Rx/DC Orders Clinical Impression: Acute exacerbation of CHF (congestive heart failure), Atherosclerosis of coronary artery of [place] without angina pectoris, Hyperlipidemia, Essential (primary) hypertension, Acute hypoxemic respiratory failure, S/P kyphoplasty Disposition Disposition: Acute Care Hospital [facility]
[2024-03-25 10:43] LABS: ALB/GLOB Ratio 0.6 RATIO (0.9-2.4); AST(SGOT) 17 U/L (15-37); Alanine Aminotransfer ALT/SGPT 10 U/L (13-56); Albumin, Serum 3.3 g/dL (3.2-5.0); Alkaline Phosphatase 161 U/L (45-117); Anion Gap 9 (5-15); BUN 13 mg/dL (7-18); BUN/Creat Ratio 9.5 RATIO (10-20); Calcium,Total 9.4 mg/dL (8.5-10.1); Chloride 99 mmol/L (98-107); Creatinine, Serum 1.37 mg/dL (0.55-1.02); EST Glomerular Filtration Rate 39 mL/min (>60); Est Glom Filt Rate - Afr Amer 47 mL/min (>60); Estimated Creatinine Clearance 36.05 ml/min; Globulin 5.8 g/dL (2.2-4.2); Glucose 170 mg/dL (74-106); Potassium 2.9 mmol/L (3.5-5.1); Protein, Total 9.1 g/dL (6.4-8.2); Sodium Level 132 mmol/L (136-145); Troponin-I HS 12 pg/mL (3.0-54.0)
[2024-03-25] MEDS: Nitroglycerin Infusion 250 ML 3 MG CONT INF (10:48)
[2024-03-25] MEDS: Morphine 4 MG/ML Syringe IV ×2 (12:00→13:20)
[2024-03-25] MEDS: Ondansetron 4 MG/2 ML Vial IV (12:00)
--- NOTE | 2024-03-25 12:19 | PCM.HP.STD ---
HPI - General General Date of Admission: 03/25/24 Date of Service: 03/25/24 Chief Complaint: Worsening shortness of breath with hypoxia HPI Narrative ANTONIO GUPTA, is a 83 F who presented to [facility] ED on 03/25/2024 with worsening shortness of breath and hypoxia concerning for a heart failure exacerbation. Patient was hospitalized here in early December with a similar presentation. She presented at that time with volume overload and bilateral pleural effusions and acute hypoxic respiratory failure requiring both BiPAP and high flow nasal cannula. She was admitted to the ICU then but did not require intubation. She improved with aggressive diuresis. Her echo at that time showed an EF of 55% with mild pulmonary hypertension and severely enlarged LA and RA but no other significant abnormalities. She was able to be weaned off supplemental oxygen completely prior to that discharge. It was thought that some worsening of her known anemia could be attributing to her heart failure exacerbation. She saw cardiology in the office in early February; was noted to have more fatigue than her usual at that time but was otherwise hemodynamically stable and breathing well on room air. She had a stress test done prior to that appointment that was normal. With regard to other medical issues, patient follows with Dr. Baker for known history of anemia and newly diagnosed monoclonal gammopathy. She also has history of worsening chronic back pain with known compression fractures at T8 and T12. Per Dr. Baker's note, she is currently undergoing further workup for possible conversion of her monoclonal gammopathy to multiple myeloma. She saw Dr. Baker in the office this morning but he noted that she was short of breath and she was found to be hypoxic to 82%, so he sent her to the ED here for further evaluation. On arrival here she was started on low-flow nasal cannula but continued to have some increased work of breathing and hypoxia so she was placed on high flow nasal cannula. Chest x-ray showed a mild degree of CHF with suspected bilateral pleural effusions and cardiomegaly. BNP was mildly elevated from previous. Was suspected that patient had a recurrent heart failure exacerbation similar to December and she was given a dose of IV Lasix. Hospitalist was then contacted for admission. I saw the patient at bedside in the ED, was present. Patient was satting in the low 90s on high flow nasal cannula with mild increased work of breathing. Patient's primary concern was that she had ongoing mid back pain that wraps around to her left side. She stated that the pain was much worse today than previous days. Patient notably had a T8 kyphoplasty done with Dr. Ott with pain management on this past Thursday 03/22. She has been note that she tolerated the procedure well and was discharged home from the outpatient surgical center. She developed worsening shortness of breath with exertion after that. She has chronic back pain but states that it has gotten significantly worse over the past day or so. She was given a dose of IV morphine before I saw her with only some relief. Patient also reported some generalized abdominal discomfort when I saw her. Obtained CT T-spine, L-spine and abdomen pelvis for further evaluation. CT T-spine showed worsening moderate compression deformity of T11, stable severe compression deformities of T8 and T12, no other new spinal abnormalities. It notably did also show worsening large bilateral pleural effusions. CT L-spine showed stable severe chronic compression deformity of T12 and unchanged severe canal stenosis of L4-L5, no acute abnormalities. CT abdomen pelvis again showed large bilateral pleural effusions with a hiatal hernia, and also showed an area of acute sigmoid diverticulitis. Given the significant pleural effusions, patient was started on an IV Lasix drip on admission. Was also started on IV Zosyn and given a clear liquid diet for the acute diverticulitis. Was then admitted for further management. [facility] Medical History Iron deficiency anemia History of non-ST elevation myocardial infarction (NSTEMI) (2013) Longstanding persistent atrial fibrillation Essential (primary) hypertension Anxiety Hypothyroidism Hyperlipidemia Secondary pulmonary arterial hypertension Atherosclerosis of coronary artery of [place] heart without angina pectoris Paroxysmal atrial fibrillation Paroxysmal atrial flutter Sick sinus syndrome Home Medications ?Medication ?Instructions ?Recorded ?Last Taken ?Type buspirone 15 mg tablet 15 mg PO BID ANXIETY 06/02/13 Unknown History omeprazole 40 mg capsule,delayed 40 mg PO DAILY ACID REFLUX 06/02/13 09/15/16 08:30 History release nitroglycerin 0.4 mg sublingual 0.4 mg sublingual Q5M PRN CHEST 04/21/15 Unknown History tablet PAIN glimepiride 4 mg tablet 2 mg PO DAILY DIABETES 01/24/22 Unknown History acetaminophen 500 mg capsule 1,000 mg PO Q4H PRN PAIN 02/17/23 Unknown History amitriptyline 50 mg tablet 50 mg PO QHS DEPRESSION 02/17/23 Unknown History empagliflozin 10 mg tablet 10 mg PO DAILY DIABETES 02/17/23 Unknown History (Jardiance) ketotifen fumarate 0.025 % (0.035 1 drp ophthalmic (eye) BID PRN 02/17/23 Unknown History %) eye drops ([place]) ITCHING/ALLERGIES amlodipine 10 mg tablet 10 mg PO DAILY BLOOD PRESSURE 12/14/23 Unknown History levothyroxine 100 mcg tablet 100 mcg PO DAILY THYROID 12/14/23 Unknown History (Synthroid) rivaroxaban 20 mg tablet (Xarelto) 20 mg PO DAILY BLOOD THINNER 12/14/23 Unknown History simvastatin 20 mg tablet 20 mg PO QHS CHOLESTEROL 12/14/23 Unknown History potassium chloride 20 mEq 20 meq PO DAILY #30 tabs 12/16/23 Unknown Rx tablet,extended release(part/cryst) furosemide 40 mg tablet (Lasix) 40 mg PO DAILY #60 tabs 12/17/23 Unknown Rx metoprolol succinate 50 mg 50 mg PO DAILY #60 tabs 12/17/23 Unknown Rx tablet,extended release 24 hr oxycodone-acetaminophen 5 mg-325 1 tab PO Q6H PRN pain 3 days #12 02/06/24 Unknown Rx mg tablet (Percocet) tabs losartan 100 mg tablet 100 mg PO DAILY 03/25/24 Unknown History Allergy/AdvReac Type Severity Reaction Status Date / Time poison fany extract (Poison Allergy Rash Verified 03/25/24 09:54 Fany Extract) Sulfa (Sulfonamide Allergy Hives Verified 03/25/24 09:54 Antibiotics) Family History Mother Cancer Father Cancer Brother CAD (coronary artery disease) Sister CAD (coronary artery disease) Surgical History History of tubal ligation History of appendectomy History of hysterectomy History of left heart catheterization (10/09/13) History of coronary artery stent placement (09/2010) Hx of atrioventricular node ablation (03/31/16) Presence of cardiac pacemaker (04/26/15) Social History (Updated 03/25/24 @ 10:[address] Geoffrey Dodge MD) household members: spouse Smoking Status: Former smoker how long ago did patient quit smokin's alcohol intake: never substance use type: does not use caffeine: Yes Type: coffee Number of servings: 3 ROS Constitutional Constitutional: Reports fatigue and weakness; Denies chills or fever(s) Eyes Eyes: Denies change in vision Cardiovascular Cardiovascular: Reports dyspnea on exertion, edema and orthopnea; Denies chest pain, lightheadedness, palpitations or rapid heart rate Respiratory/Chest Respiratory/Chest: Reports shortness of breath at rest; Denies cough, productive cough or wheezing Gastrointestinal Gastrointestinal: Reports abdominal pain; Denies constipation, diarrhea, nausea or vomiting Genitourinary Genitourinary: Denies dysuria Musculoskeletal Musculoskeletal: Reports back pain; Denies arthralgias or myalgias Neurologic Neurologic: Denies dizziness, focal weakness or headache(s) Vital Signs Vital Signs Vital Signs: 03/25/24 09:55 03/25/24 09:56 03/25/24 09:59 Temperature 97.6 F L 97.2 F L Temperature Source Temporal Temporal Pulse Rate 112 H 91 Respiratory Rate 26 H 94 H Respiratory Effort Respiratory Depth Respiratory Pattern Blood Pressure 139/78 H 139/60 H Blood Pressure Mean 98 86 Blood Pressure Source Blood Pressure Position Blood Pressure Location Pulse Ox 82 88 Oxygen Delivery Method Room Air Nasal Cannula Nasal Cannula Oxygen Flow Rate (L/min) 6 Fraction of Inspired Oxygen (FIO2) 03/25/24 10:08 03/25/24 10:11 03/25/24 10:15 Temperature Temperature Source Pulse Rate 91 91 Respiratory Rate 22 H 16 Respiratory Effort Short of Breath Respiratory Depth Shallow Respiratory Pattern Tachypnea Blood Pressure 133/65 H Blood Pressure Mean 85 Blood Pressure Source Blood Pressure Position Blood Pressure Location Pulse Ox 89 88 Oxygen Delivery Method Nasal Cannula Oxygen Flow Rate (L/min) 6 6 6 Fraction of Inspired Oxygen (FIO2) 03/25/24 10:16 03/25/24 10:30 03/25/24 10:45 Temperature Temperature Source Pulse Rate 91 91 Respiratory Rate 21 H 21 H Respiratory Effort Respiratory Depth Respiratory Pattern Blood Pressure 147/75 H 135/77 H Blood Pressure Mean 95 94 Blood Pressure Source Blood Pressure Position Blood Pressure Location Pulse Ox 93 94 Oxygen Delivery Method Nasal Cannula Oxygen Flow Rate (L/min) 6 15 Fraction of Inspired Oxygen (FIO2) 75 03/25/24 10:48 03/25/24 10:51 03/25/24 10:51 Temperature Temperature Source Pulse Rate Respiratory Rate Respiratory Effort Respiratory Depth Respiratory Pattern Blood Pressure 135/77 H Blood Pressure Mean 96 Blood Pressure Source Monitor Blood Pressure Position Sitting Blood Pressure Location Left Arm Pulse Ox 95 Oxygen Delivery Method Airvo Oxygen Flow Rate (L/min) 40 Fraction of Inspired Oxygen (FIO2) 75 75 03/25/24 10:56 03/25/24 11:00 03/25/24 11:15 Temperature 97.4 F L Temperature Source Temporal Pulse Rate 91 91 91 Respiratory Rate 22 H 19 H 22 H Respiratory Effort Respiratory Depth Respiratory Pattern Blood Pressure 141/76 H 141/76 H 99/47 L Blood Pressure Mean 97 94 62 Blood Pressure Source Blood Pressure Position Blood Pressure Location Pulse Ox 93 93 94 Oxygen Delivery Method High Flow Oxygen Flow Rate (L/min) Fraction of Inspired Oxygen (FIO2) 75 75 75 03/25/24 11:23 03/25/24 11:30 03/25/24 11:45 Temperature Temperature Source Pulse Rate 90 91 Respiratory Rate 21 H 24 H Respiratory Effort Respiratory Depth Respiratory Pattern Blood Pressure 132/88 H 140/65 H 142/73 H Blood Pressure Mean 97 85 91 Blood Pressure Source Blood Pressure Position Blood Pressure Location Pulse Ox 94 90 91 Oxygen Delivery Method Oxygen Flow Rate (L/min) Fraction of Inspired Oxygen (FIO2) 03/25/24 12:00 03/25/24 12:15 03/25/24 12:16 Temperature Temperature Source Pulse Rate 91 Respiratory Rate 20 H Respiratory Effort Respiratory Depth Respiratory Pattern Blood Pressure 141/80 H 145/80 H Blood Pressure Mean 96 96 Blood Pressure Source Blood Pressure Position Blood Pressure Location Pulse Ox 92 92 Oxygen Delivery Method High Flow Oxygen Flow Rate (L/min) 75 Fraction of Inspired Oxygen (FIO2) Weight Weight: 90.9 kg Body Mass Index (BMI) 30.4 Physical Exam Const alert and oriented x3 Constitutional Narrative: Elderly female, chronically ill-appearing, in mild distress due to ongoing back pain and mild increased work of breathing, otherwise answering questions with short appropriate responses. General Appearance: cooperative HEENT normocephalic, head/scalp atraumatic, hearing grossly normal bilaterally and nasal mucous membranes and turbinates normal Eyes PERRL, EOMs intact bilaterally and conjunctivae normal Neck full ROM Chest inspection of chest normal Resp Resp Narrative: Mild increased work of breathing on high flow nasal cannula with oxygen saturations in the low 90s. Very diminished breath sounds at bilateral lung bases with crackles noted in upper airways bilaterally. No wheezing noted. Cardio regular rate, regular rhythm, no murmurs and peripheral pulses 2+ throughout GI normal to inspection, nondistended, normoactive bowel sounds, soft to palpation, non-tender and non-distended Back/Spine Back/Spine Narrative: Mild tenderness to palpation in lower thoracic spine. Did not attempt any passive motion but reports significant pain with movement of her mid to low back. Extremity normal to inspection Extremity Narrative: +1-2 lower extremity pitting edema. Skin no rashes or lesions noted Neuro moves all extremities and no focal motor deficits Speech: speech normal Psych mental status grossly normal Mood & Affect: anxious Results Lab / Micro Data 03/25/24 10:08 03/25/24 10:08 Labs: Laboratory Results - last 24 hr 03/25/24 10:08: WBC 8.6, RBC 4.49, Hgb 12.0, Hct 39.0, MCV 86.9, MCH 26.7 L, MCHC 30.8 L, RDW Std Deviation 52.8 H, RDW Coeff of Jose Alberto 16.7 H, Plt Count 385, MPV 9.7, Immature Gran % (Auto) 0.300, Neut % (Auto) 76.4 H, Lymph % (Auto) 11.2 L, [place] % (Auto) 9.3, Eos % (Auto) 2.3, Baso % (Auto) 0.5, Absolute Neuts (auto) 6.6, Absolute Lymphs (auto) 0.96, Nucleated RBC % 0, Sodium 132 L, Potassium 2.9 L, Chloride 99, Carbon Dioxide 24.0, Anion Gap 9, BUN 13, Creatinine 1.37 H, Estim Creat Clear Calc 36.05, Est GFR (MDRD) Af Amer 47 L, Est GFR (MDRD) Non-Af 39 L, BUN/Creatinine Ratio 9.5 L, Glucose 170 H, Calcium 9.4, Total Bilirubin 0.50, AST 17, ALT 10 L, Alkaline Phosphatase 161 H, Troponin I High Sens 12, Total Protein 9.1 H, Albumin 3.3, Globulin 5.8 H, Albumin/Globulin Ratio 0.6 L ABG Data ABG results: ABG 03/25/24 10:21 Specimen Type ART Sample Site R Radial pH 7.43 Bicarbonate Actual 26.2 H Total CO2 27 Base Excess 2 O2 Saturation 90 L O2 % 6.0 ABG pCO2 39.7 ABG pO2 57 L Dean Test Positive O2 Delivery Device Cannula Vent Mode Not entered Imaging Radiology Impression Chest X-Ray 03/25/24 10:17 IMPRESSION: Mild degree of CHF with superimposed bibasilar infiltration and/or atelectasis on the chronic basilar scarring. Cardiomegaly. Electronically Signed: Bello Lozoya MD at 10:30 EDT , Assessment & Plan Assessment/Plan (1) Acute hypoxemic respiratory failure: (2) Acute exacerbation of CHF (congestive heart failure): PLAN: Plan Patient is an 83-year-old female who presented [facility] ED on 03/25/2024 with worsening shortness of breath and hypoxia. 1. Acute hypoxic respiratory failure suspected secondary to recurrent CHF exacerbation ? Not on home oxygen. Presented from Heme/Onc office w/ worsening shortness of breath and hypoxia. Continued to be hypoxic on low-flow nasal cannula on arrival to ED, increased to high flow nasal cannula. Chest x-ray showed vascular congestion with bilateral pleural effusions and cardiomegaly. CT imaging noted below also showed large bilateral pleural effusions. BNP mildly elevated from baseline. Notably had similar presentation in December of this year, had good improvement with Lasix drip and was weaned off supplemental oxygen completely prior to discharge. Echo in December showed EF 55%, mild pulmonary hypertension, severe LA and RA dilation, otherwise no abnormalities. Will treat with Lasix drip for now with strict monitoring of I's and O's. Monitor BMP daily. Repeat limited echo ordered. Wean supplemental oxygen as able. If no significant improvement with IV diuresis, can consider thoracentesis for volume removal. Will hold on cardiology consult for now but can consider if needed. 2. Acute on chronic back pain with debility ? PT/OT/case management consulted. Unclear etiology for worsening back pain over the past few days. CT T-spine and L-spine on admission showed known chronic compression fractures with no significant worsening from previous. Will treat with scheduled Tylenol, p.o. oxycodone and IV Dilaudid as needed for now. If no improvement over the next few days, can consider pain management consult. 3. 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 Follows with Dr. Baker. 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 Plan is for bone marrow biopsy and further imaging evaluation soon to determine if patient may have conversion to multiple myeloma. Hemoglobin stable at baseline on admission. No current inpatient needs, will need close outpatient follow-up after discharge. 4. Mild acute sigmoid diverticulitis ? Noted on CT abdomen pelvis on admission. Patient with only mild abdominal pain and no significant change in bowel movements recently. Unclear if patient has had episodes of diverticulitis in the past. Will treat with IV Zosyn and maintain on clear liquid diet for now. Can consider GI consult as needed. 5. Hypokalemia ? Potassium 2.9 on admit. Has history of mild chronic hypokalemia and is on 20 mEq of potassium daily. Continue home potassium and monitor potassium daily, and aggressively replete while on IV Lasix. 6. Hyponatremia ? Sodium 132 on admit. Suspect due to volume overload from heart failure exacerbation. Monitor BMP daily. 7. CKD stage III ? Creatinine 1.37 on admit, at baseline. Monitor BMP daily given heavy diuresis with Lasix drip as noted above. Chronic medical conditions: ? Obesity: BMI 30 on admit. Complicates hospital course, care and prognosis. ? History of CAD s/p stenting, hypertension, hyperlipidemia: Blood pressure stable on admit. Continue home Toprol, losartan and amlodipine. Continue home statin and Xarelto. ? Paroxysmal A-fib on Eliquis, history of AV isael ablation s/p pacemaker placement: Appears to be in normal sinus rhythm on admit. Continue home Xarelto and Toprol. ? GERD: Continue home PPI. ? Type 2 diabetes mellitus: Treated with sliding scale insulin while inpatient, adjust as needed. DVT prophylaxis: Not indicated, on Eliquis CODE STATUS: Full code, verified Expected disposition: TBD Total clinical time spent by myself addressing the patient's medical issues, reviewing all the data, and collaborating with patient's care team: 75 minutes. Charges/Coding Visit Charges Inpatient E&M: 58620 Init Hosp L3
--- NOTE | 2024-03-25 13:39 | ED.RN ---
872ml urine residual
--- NOTE | 2024-03-25 14:04 | ECHOLC_ITS ---
Reason For Study: CHF Procedure This was a limited 2D transthoracic echocardiogram. Contrast injection was performed. Exam performed portable in patient room. Left Ventricle Normal LV size. The estimated ejection fraction is 45-50 %. Unable to assess diastolic dysfunction. [place] : Akinetic. Right Ventricle Normal RV size. ICD or pacer leads identified within the right ventricle. Normal systolic function. Atria There is severe biatrial dilatation. ICD or pacer leads identified within the right atrium. Mitral Valve There is moderate to severe mitral annular calcification. There is no mitral valve stenosis. Moderate (2+) mitral valve insufficiency. Tricuspid Valve There is no tricuspid stenosis. Mild to moderate (1-2+) tricuspid valve insufficiency. Pulmonary artery systolic pressure is 70 mmHg. Aortic Valve Trisinus/trileaflet aortic valve. There is no aortic stenosis. Mild (1+) aortic valve insufficiency. Great Vessels Normal aortic root. Pericardium/Pleural No pericardial effusion. Medication Diluted definity 1.5ml given slow IV push to enhance endocardial definition. MMode/2D Measurements & Calculations LVIDd: 3.9 cm IVSd: 1.0 cm LVAd ap4: 26.3 cm2 LVIDs: 2.3 cm LVPWd: 1.1 cm LVLd ap4: 7.3 cm FS: 40.5 % EDV(MOD-sp4): 77.1 ml EDV(sp4-el): 80.3 ml LVAs ap4: 17.7 cm2 LVLs ap4: 6.7 cm ESV(MOD-sp4): 38.5 ml ESV(sp4-el): 40.0 ml EF(MOD-sp4): 50.0 % EF(sp4-el): 50.2 % SV(MOD-sp4): 38.6 ml SV(sp4-el): 40.3 ml Doppler Measurements & Calculations TR max niyah: 393.8 cm/sec TR max P.0 mmHg ECHO/Echo Limited w/Contrast Interpretation Summary The estimated ejection fraction is 45-50 %. Unable to assess diastolic dysfunction. [place] : Akinetic. Moderate (2+) mitral valve insufficiency. Mild (1+) aortic valve insufficiency. Ordering Physician: Juice Elizabeth Referring Physician: Matt Rocha Performed By: Josselin Rodrigez, HEMANT, RVT
--- NOTE | 2024-03-25 14:19 | CT_ITS ---
EXAMINATION : Head CT w/out contrast HISTORY : known compression fxs w/ worsening pain COMPARISON : 04/14/2018. TECHNIQUE : Multiple contiguous axial images were obtained from the skull base to the vertex without intravenous contrast. A radiation dose optimization technique was used for this scan. FINDINGS : There is no evidence for acute intracranial hemorrhage, mass effect, or midline shift. There is no extra-axial fluid collection. There are periventricular white matter changes consistent with chronic microvascular ischemic disease. There is sulcal widening and ventricular enlargement consistent with cerebral atrophy. There is normal mederos-white differentiation, without CT evidence of acute ischemia or infarct. The skull base and calvarium are unremarkable. The orbits are unremarkable. The paranasal sinuses are clear. The mastoid air cells are well-aerated. The soft tissues are unremarkable. CT/Spine Thoracic without Contras IMPRESSION: No acute intracranial abnormality. Chronic involutional and ischemic changes of the brain. Pending Final Proof Editing
--- NOTE | 2024-03-25 14:19 | CT_ITS ---
INDICATION: worsening abdominal/flank pain EXAMINATION: CT Abdomen And Pelvis W/O Contrast Injection TECHNIQUE: Helically acquired images were obtained of the abdomen and pelvis without the use of IV contrast. A radiation dose optimization technique was used for this scan. Oral contrast: None. COMPARISON: None FINDINGS: Evaluation of the solid organs and vascular structures is limited without intravenous contrast. Visualized lung bases: Large bilateral pleural effusions. Liver: Unremarkable Gallbladder: Unremarkable Spleen: Unremarkable Pancreas: Unremarkable Adrenal Glands: Unremarkable Kidneys: Unremarkable Vasculature: Severe aortoiliac atherosclerotic disease. GI Tract: Hiatal hernia. Scattered colonic diverticula. Short segment circumferential wall thickening of the sigmoid colon with surrounding mesenteric pattern. Lymphadenopathy: None Peritoneum: Small volume free fluid in the pelvis. Bladder: Quinones catheter in place. Reproductive organs: Unremarkable Bones/Soft tissues: Refer to CT thoracic and lumbar spine for details. CT/Abdomen/Pelvis without Cont IMPRESSION: Acute sigmoid diverticulitis. Large bilateral pleural effusions. Hiatal hernia. Electronically Signed: Albert Nicolas MD at 17:00 EDT ,
--- NOTE | 2024-03-25 14:19 | CT_ITS ---
INDICATION: known compression fxs w/ worsening pain EXAMINATION: CT LUMBAR SPINE - CT Spine Lumbar W/O Contrast Injection TECHNIQUE: Helically acquired images were obtained of the lumbar spine. 2D reformats were reviewed. A radiation dose optimization technique was used for this scan. IV Contrast dosage and agent: None. COMPARISON: 02/06/2024. FINDINGS: VERTEBRAE: Stable severe chronic compression deformity of T12. No discrete lytic or blastic abnormality observed. Unchanged grade 1 anterolisthesis L4 on L5. DISCS and SPINAL CANAL: Moderate multilevel degenerative disc disease and spondylosis. Unchanged severe canal stenosis at L4-L5 and mild stenosis at T12-L1. VISUALIZED ABDOMEN: Visualized abdominal aorta is not dilated. There is no retroperitoneal adenopathy. CT/Spine Lumbar without Contrast IMPRESSION: No evidence of acute lumbar spinal fracture. Stable severe chronic compression deformity of T12. Unchanged severe canal stenosis at L4-L5 and mild stenosis at T12-L1. Unchanged grade 1 anterolisthesis L4 on L5. Electronically Signed: Albert Nicolas MD at 16:49 EDT ,
[2024-03-25 15:13] LABS: BNP,B-Type NATRIURETIC PEPTIDE 281.5 pg/mL (0-100)
[2024-03-25] MEDS: oxyCODONE 5 MG Tablet PO ×2 (15:41→22:15)
[2024-03-25] MEDS: Acetaminophen 325 MG Tablet 650 MG PO ×2 (15:41→22:16)
[2024-03-25] MEDS: Rivaroxaban 20 MG Tablet PO (17:13)
[2024-03-25] MEDS: Potassium Chloride Oral Tablet 20 MEQ 40 MEQ PO (17:13)
[2024-03-25] MEDS: Furosemide 40 MG/4 ML Vial IV (17:13)
[2024-03-25] MEDS: Furosemide 500 MG in Empty Viaflex 50 mL 1 EACH CONT INF (19:56)
[2024-03-25] MEDS: 0.9% Saline Lock 10 ML Syringe IV (19:58)
[2024-03-25] MEDS: Amitriptyline 25 MG Tablet PO (22:15)
[2024-03-25] MEDS: Atorvastatin Calcium 10 MG Tablet PO (22:15)
[2024-03-25] MEDS: busPIRone 15 MG TABLET PO (22:15)
[2024-03-25] MEDS: Piperacil/Tazobactam 3.375 GM in 0.9% Normal Saline (50mL MB+) 50 ML IV (22:16)
[2024-03-26] VITALS (9 sets, daily range): BP systolic 121–149; BP diastolic 66–79; PULSE 89–94; RESP 18–20; TEMP 36.6–37.1; O2SAT 92–97; BMI 31.1
[2024-03-26 04:43] LABS: Hematocrit 35.2 % (37-47); Hemoglobin 10.8 g/dL (12.0-15.0); Mean Corp Hgb Conc 30.7 g/dL (32-36); Mean Corpuscular Hgb 26.7 pg (27.0-32.0); Mean Corpuscular Volume 87.1 fL (81-99); Mean Platelet Vol. 9.2 fl (6.2-12.0); Platelet Count 321 K/mm3 (150-450); RBC Distribution Width CV 16.5 % (11.6-14.6); RBC Distribution Width SD 52.5 fl (35.1-43.9); Red Blood Count 4.04 M/mm3 (4.2-5.4); White Blood Count 6.5 K/mm3 (4.4-11.0)
[2024-03-26 05:06] LABS: Anion Gap 5 (5-15); BUN 11 mg/dL (7-18); BUN/Creat Ratio 8.7 RATIO (10-20); Chloride 101 mmol/L (98-107); Creatinine, Serum 1.26 mg/dL (0.55-1.02); EST Glomerular Filtration Rate 43 mL/min (>60); Est Glom Filt Rate - Afr Amer 52 mL/min (>60); Estimated Creatinine Clearance 39.38 ml/min; Glucose 74 mg/dL (74-106); Potassium 3.6 mmol/L (3.5-5.1); Sodium Level 137 mmol/L (136-145)
[2024-03-26] MEDS: Levothyroxine 100 MCG Tablet PO (06:19)
[2024-03-26] MEDS: Piperacil/Tazobactam 3.375 GM in 0.9% Normal Saline (50mL MB+) 50 ML IV ×3 (06:19→21:06)
[2024-03-26] MEDS: Pantoprazole Sodium 40 MG Tablet PO (09:07)
[2024-03-26] MEDS: busPIRone 15 MG TABLET PO ×2 (09:07→21:06)
[2024-03-26] MEDS: Potassium Chloride Oral Tablet 20 MEQ PO (09:07)
[2024-03-26] MEDS: amLODIPine 10 MG Tablet PO (09:07)
[2024-03-26] MEDS: Metoprolol(XL)Succ 50 MG Tablet PO (09:07)
[2024-03-26] MEDS: FLU VACCINE **HIGH DOSE** TV 24-25 180 MCG/0.5 ML SYRINGE IM (09:17)
--- NOTE | 2024-03-26 09:26 | CASEMGMT ---
NIYA OJEDA Assessment: Face to Face with pt for initial transition planning/care coordination assessment. NIYA OJEDA introduced self and role at [facility], pt voices understanding and consents to assessment. Pt is A&O x4 and answers all questions appropriately at this time. Pt sitting up in bed with nurse and at bedside. Pt in no distress on airvo. Care providers, pharmacy, and demographics verified/updated. Admitting Dx: CHF exac with acute hypoxic respiratory failure PCP:[facility] Specialists:Olivia, onc; Ivett, cardio [facility]erred [facility] Benef[facility]: yes LNOK: Hardik Young, Living Arrangements: Pt lives with in a two story home with FFSU and 1 step to enter with a grab bar. Pt assists with ADLs and IADLs as pt had recent kyphoplasty. Pt denies concerns at home. Transportation: Pt drives self and denies concerns with transportation. Pt has not recently driven but has been transporting her. DME:cane, walker, shower chair, grab bars at toilet, BGM with sufficient supply of strips and lancets HHC/SNF: Denies HHC, [facility]. Pt states no concerns with going home at time of dc. Discussed if pt should need oxygen upon dc and provided her with a local verbal in network list of DME companies, pt chose [employer]. Pt may be interested in [facility] for SN and therapy. Pt has not been out of bed yet. Pt states no further concerns/needs. CM to follow. Advised pt to ask CM if any further question/concerns/needs arise, voices understanding. Pt Goal: Home Plan: Home vs Home with HHC, follow therapy and oxygen needs Eva NÚÑEZ CM
[2024-03-26] MEDS: oxyCODONE 5 MG Tablet PO ×2 (09:31→19:43)
[2024-03-26] MEDS: Acetaminophen 325 MG Tablet 650 MG PO ×2 (09:32→19:43)
--- NOTE | 2024-03-26 11:58 | PCM.PN.HOSP ---
Reason for Visit Reason for Visit: Diagnoses Heart failure, unspecified (03/25/24) Acute respiratory failure with hypoxia (03/25/24) Subjective Subjective Saw patient at bedside this morning, present. Patient was still requiring high flow nasal cannula but breathing more comfortably today and appeared improved from admission. Stated that she had had significant urine output on the Lasix drip and felt like she was breathing better today than yesterday. She had not gotten up much from her chair but denied any significant shortness of breath with exertion. Stated that her mid back to left-sided pain is moderately improved today from yesterday. No other new concerns today. Objective Data Objective Data Vital Signs: Vital Signs Temp Pulse Resp BP Pulse Ox O2 Del Method O2 Flow Rate 98.3 F 89 18 141/66 H 95 Airvo 30 03/26/24 09:00 03/26/24 09:07 03/26/24 09:00 03/26/24 09:00 03/26/24 09:00 03/26/24 09:38 03/26/24 11:33 FiO2 753 03/26/24 09:38 Oxygen Flow Rate (L/min) 30 Oxygen Delivery Method Airvo Weight: 93 kg Body Mass Index (BMI) 31.1 Intake & Output: Intake and Output for Last 24 Hours 03/24/24 03/25/24 03/26/24 23:59 23:59 23:59 Intake Total 259.75 / 259.75 220 / 220 Output Total 2400 / 2400 3300 / 3300 Balance -2140.25 / -2140.25 -3080 / -3080 Lab / Micro Data 03/26/24 04:35 03/26/24 04:35 Labs: Laboratory Results - last 24 hr 03/25/24 10:08: B-Natriuretic Peptide 281.5 H 03/26/24 04:35: WBC 6.5, RBC 4.04 L, Hgb 10.8 L, Hct 35.2 L, MCV 87.1, MCH 26.7 L, MCHC 30.7 L, RDW Std Deviation 52.5 H, RDW Coeff of Jose Alberto 16.5 H, Plt Count 321, MPV 9.2, Sodium 137, Potassium 3.6, Chloride 101, Carbon Dioxide 31.0, Anion Gap 5, BUN 11, Creatinine 1.26 H, Estim Creat Clear Calc 39.38, Est GFR (MDRD) Af Amer 52 L, Est GFR (MDRD) Non-Af 43 L, BUN/Creatinine Ratio 8.7 L, Glucose 74, Calcium 9.0 Radiography Diagnostic Testing: Radiology Impression Echocardiogram 03/25/24 14:04 Interpretation Summary The estimated ejection fraction is 45-50 %. Unable to assess diastolic dysfunction. [place] : Akinetic. Moderate (2+) mitral valve insufficiency. Mild (1+) aortic valve insufficiency. Ordering Physician: Juice Elizabeth Referring Physician: Matt Rocha Performed By: Josselin Rodrigez, RDCS, RVT Abdomen/Pelvis CT 03/25/24 14:19 IMPRESSION: Acute sigmoid diverticulitis. Large bilateral pleural effusions. Hiatal hernia. Electronically Signed: Albert Nicolas MD at 17:00 EDT , Lumbar Spine CT 03/25/24 14:19 IMPRESSION: No evidence of acute lumbar spinal fracture. Stable severe chronic compression deformity of T12. Unchanged severe canal stenosis at L4-L5 and mild stenosis at T12-L1. Unchanged grade 1 anterolisthesis L4 on L5. Electronically Signed: Albert Nicolas MD at 16:49 EDT , Thoracic Spine CT 03/25/24 14:19 IMPRESSION: No acute intracranial abnormality. Chronic involutional and ischemic changes of the brain. Pending Final Proof Editing ADDENDUM: 03/25/24 1700 IMPRESSION: Worsening moderate compression deformity of T11. Stable severe compression deformities of T8 and T12 with mild canal stenosis at T11-T12. Worsening large bilateral pleural effusions. Electronically Signed: Albert Nicolas MD at 16:55 EDT , ADDENDUM: 03/25/24 170 IMPRESSION: No acute intracranial abnormality. Chronic involutional and ischemic changes of the brain. Electronically Signed: Albert Nicolas MD at 16:16 EDT Reading Location ID and State: [email or web address] / [place] Tel , Service support , ADDENDUM: 03/25/24 170 IMPRESSION: Worsening moderate compression deformity of T11. Stable severe compression deformities of T8 and T12 with mild canal stenosis at T11-T12. Worsening large bilateral pleural effusions. Electronically Signed: Albert Nicolas MD at 16:55 EDT , ADDENDUM: 03/25/24 1711 IMPRESSION: Worsening moderate compression deformity of T11. Stable severe compression deformities of T8 and T12 with mild canal stenosis at T11-T12. Worsening large bilateral pleural effusions. Electronically Signed: Albert Nicolas MD at 16:55 EDT , Doni.B. : Ingrid Chang OT, confirmed on 03/25/2024 17:04:32 (ET) that the healthcare facility has received the radiology report. Physical Exam Const alert and oriented x3 Constitutional Narrative: Elderly female, chronically ill-appearing but appears improved from admission, better energy level today, back pain improved and breathing comfortably on high flow nasal cannula and in no acute distress. General Appearance: cooperative HEENT normocephalic, head/scalp atraumatic, hearing grossly normal bilaterally and nasal mucous membranes and turbinates normal Eyes PERRL, EOMs intact bilaterally and conjunctivae normal Neck full ROM Chest inspection of chest normal Resp Resp Narrative: Improved from admission. Breathing comfortably on high flow nasal cannula at decreased requirements from admission. Still with significantly decreased breath sounds in bilateral lung bases with mild crackles bilaterally but improving. No wheezing noted. Cardio regular rate, regular rhythm, no murmurs and peripheral pulses 2+ throughout GI normal to inspection, nondistended, normoactive bowel sounds, soft to palpation, non-tender and non-distended Back/Spine Back/Spine Narrative: Mild tenderness to palpation in lower thoracic spine. Improved from admission, much less pain with movement than on admission. Extremity normal to inspection Extremity Narrative: +1-2 lower extremity pitting edema, stable. Skin no rashes or lesions noted Neuro moves all extremities and no focal motor deficits Speech: speech normal Psych mental status grossly normal Assessment & Plan Assessment/Plan (1) Acute hypoxemic respiratory failure: (2) Acute exacerbation of CHF (congestive heart failure): PLAN: Plan Patient is an 83-year-old female who presented [facility] ED on 03/25/2024 with worsening shortness of breath and hypoxia. 1. Acute hypoxic respiratory failure suspected secondary to recurrent CHF exacerbation ? Cardiology consulted. Presented with worsening shortness of breath and hypoxia. Not on home oxygen. Required high flow nasal cannula in ED for adequate oxygen saturations. Chest x-ray showed vascular congestion with bilateral pleural effusions and cardiomegaly and CT imaging noted below also showed large bilateral pleural effusions. BNP mildly elevated from baseline. Notably had similar presentation in December, had good improvement with Lasix drip and was weaned off submental oxygen prior to discharge. Echo in December showed EF 55%, mild pulmonary hypertension, severe LA and RA dilation, otherwise no abnormalities. Repeat limited echo on 03/26 showed EF 45 to 50% with akinetic cardiac apex. Unclear etiology, have concern for possible Takotsubo cardiomyopathy; appreciate cardiology recommendations. Started on IV Lasix drip on admission with good urine output and some improvement in oxygenation status. Continue Lasix drip for now and monitor strict I's and O's. Wean supplemental oxygen as able. 2. Acute on chronic back pain with debility ? PT/OT/case management following. Unclear etiology for worsening back pain over the past few days. CT T-spine and L-spine on admission showed known chronic compression fractures with no significant worsening from previous. Pain improving on hospital day 2, worsening pain may in part have been due to increased pressure from bilateral pleural effusions. Continue treatment with scheduled Tylenol, p.o. oxycodone and IV Dilaudid as needed. 3. 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 Follows with Dr. Baker. 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 Plan is for bone marrow biopsy and further imaging evaluation soon to determine if patient may have conversion to multiple myeloma. Hemoglobin stable at baseline on admission. No current inpatient needs, will need close outpatient follow-up after discharge. 4. Mild acute sigmoid diverticulitis ? Noted on CT abdomen pelvis on admission. Patient with only mild abdominal pain and no significant change in bowel movements recently. Unclear if patient has had episodes of diverticulitis in the past. Will treat with IV Zosyn and maintain on clear liquid diet for now. Can consider GI consult as needed. 5. Hypokalemia ? Potassium 2.9 on admit. Has history of mild chronic hypokalemia and is on 20 mEq of potassium daily. Continue home potassium and monitor potassium daily, and aggressively replete while on IV Lasix. 6. Hyponatremia ? Sodium 132 on admit. Suspect due to volume overload from heart failure exacerbation. Monitor BMP daily. 7. CKD stage III ? Creatinine 1.37 on admit, at baseline. Monitor BMP daily given heavy diuresis with Lasix drip as noted above. Chronic medical conditions: ? Obesity: BMI 30 on admit. Complicates hospital course, care and prognosis. ? History of CAD s/p stenting, hypertension, hyperlipidemia: Blood pressure stable on admit. Continue home Toprol, losartan and amlodipine. Continue home statin and Xarelto. ? Paroxysmal A-fib on Eliquis, history of AV isael ablation s/p pacemaker placement: Appears to be in normal sinus rhythm on admit. Continue home Xarelto and Toprol. ? GERD: Continue home PPI. ? Type 2 diabetes mellitus: Treated with sliding scale insulin while inpatient, adjust as needed. DVT prophylaxis: Not indicated, on Eliquis CODE STATUS: Full code, verified Expected disposition: TBD Total clinical time spent by myself addressing the patient's medical issues, reviewing all the data, and collaborating with patient's care team: 35 minutes. Charges/Coding Visit Charges Inpatient E&M: 45423 Subs Hosp L2
[2024-03-26] MEDS: Rivaroxaban 20 MG Tablet PO (17:21)
[2024-03-26] MEDS: Atorvastatin Calcium 10 MG Tablet PO (21:06)
[2024-03-26] MEDS: MELATONIN 3 MG TABLET PO (21:06)
[2024-03-26] MEDS: Amitriptyline 25 MG Tablet PO (21:06)
[2024-03-27] VITALS (13 sets, daily range): BP systolic 110–127; BP diastolic 57–68; PULSE 88–92; RESP 16–20; TEMP 36.1–36.9; O2SAT 91–98; BMI 30.5
[2024-03-27 05:44] LABS: Anion Gap 7 (5-15); BUN 11 mg/dL (7-18); BUN/Creat Ratio 9.6 RATIO (10-20); Calcium,Total 8.9 mg/dL (8.5-10.1); Chloride 94 mmol/L (98-107); Creatinine, Serum 1.14 mg/dL (0.55-1.02); EST Glomerular Filtration Rate 48 mL/min (>60); Est Glom Filt Rate - Afr Amer 58 mL/min (>60); Estimated Creatinine Clearance 43.81 ml/min; Glucose 77 mg/dL (74-106); Potassium 2.6 mmol/L (3.5-5.1); Sodium Level 134 mmol/L (136-145)
[2024-03-27] MEDS: Piperacil/Tazobactam 3.375 GM in 0.9% Normal Saline (50mL MB+) 50 ML IV ×3 (06:19→21:11)
[2024-03-27] MEDS: Levothyroxine 100 MCG Tablet PO (06:23)
[2024-03-27] MEDS: Potassium Chloride Oral Tablet 20 MEQ 60 MEQ PO (07:30)
--- NOTE | 2024-03-27 08:04 | RAD_ITS ---
INDICATION: CHF exac w/ ongoing hypoxia EXAMINATION/TECHNIQUE: X-RAY - XR Chest 1 View COMPARISON: FINDINGS: LINES/DEVICES: Stable left-sided pacemaker. LUNGS: Bilateral mild pleural effusions are possible infiltrate/atelectasis. No pneumothorax. MEDIASTINUM AND CARDIOVASCULAR STRUCTURES: Cardiac silhouette is enlarged. Central airways and mediastinal contour are unremarkable. BONES AND SOFT TISSUES: Unremarkable. RAD/Chest 1 View (Portable) IMPRESSION: Bilateral mild pleural effusions are possible infiltrate/atelectasis. Cardiomegaly. Electronically Signed: Manan Soto DO at 17:09 EDT Reading Location ID and State: [facility] / [place] Tel [phone], Service support ,
[2024-03-27] MEDS: Furosemide 500 MG in Empty Viaflex 50 mL 1 EACH CONT INF (08:52)
[2024-03-27 09:00] LABS: Magnesium 1.8 mg/dL (1.6-2.6)
--- NOTE | 2024-03-27 09:42 | CON.PCM.CA_ITS ---
Assessment & Plan Assessment/Plan (1) Acute hypoxemic respiratory failure: PLAN: Patient has bilateral pleural effusions and a history of heart failure preserved ejection fraction. She is diuresing well but remains on Airvo supplemental oxygen therapy. (2) Acute exacerbation of CHF (congestive heart failure): QUALIFIERS: Heart failure type: unspecified Qualified Code(s): I 50.9 - Heart failure, unspecified PLAN: Patient has heart failure with preserved ejection fraction. She had a evaluation similar for an admission back in December 2023 where she diuresed with Lasix infusion and recovered with good respiratory recovery requiring no home oxygen therapy. Subsequently the patient is being evaluated by hematology for possible multiple myeloma. 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 Patient's echocardiogram showed a decrease in her LV function down to 45 to 50% with apical hypokinesis possibly consistent with Takotsubo's. Troponins were negative at 12 on admission and she had been symptomatic for greater than 6 hours. Would recommend continuing the Jardiance as well as her aggressive diuresis. Consideration may be given for thoracentesis if her pleural effusions did not resolve with aggressive diuresis. (3) Atherosclerosis of coronary artery of [place] heart without angina pectoris: QUALIFIERS: Coronary Disease-Associated Artery/Lesion type: [place] artery Qualified Code(s): I25.10 - Atherosclerotic heart disease of [place] coronary artery without angina pectoris PLAN: Patient has a history of LAD and right coronary artery stents in 2010. Post stenting catheterization was done several years later which showed the stents to be patent with normal LV function EF of 65%. (4) Presence of cardiac pacemaker: PLAN: Pacemaker is due to be evaluated for possible battery depletion. We will get this evaluated tomorrow morning. The patient was initially implanted April 2015. Last device check 02/10/2024 said that there was approximately 1 months of battery life however it was also reported that this was the middle of service for battery status. This will be sorted out and addressed in the next 24 hours. 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 (5) Longstanding persistent atrial fibrillation: PLAN: Patient has persistent chronic atrial fibrillation on Xarelto. Xarelto would need to be held if she does undergo thoracenteses. (6) Essential (primary) hypertension: PLAN: Patient's blood pressure is well-controlled on her current medical therapy. PLAN: Plan 1. Continue with aggressive IV diuresis. 2. Replace potassium per protocol. 3. Consider thoracentesis if pleural effusions continue and O2 cannot be weaned. 4. Continue further evaluation for multiple myeloma as directed by hematology. 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 5. Will evaluate the pacemaker in the next 24 hours with the device clinic at [facility]. 6. If further assistance is needed please call me directly I will be available by phone and if sports bookmaker is needed in-house Dr. Parra will be covering starting March 28 in the morning. HPI Consult Data Date of Consult: 03/27/24 HPI Narrative Reason for Consultation: Hypoxia and congestive heart failure. HPI Narrative: ANTONIO GUPTA, is a 83 F who presents with a history of hypoxia. 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 The patient was sent to the emergency department. In the emergency department the patient was noted to be hypoxic she was placed on supplemental oxygen evaluation revealed bilateral pleural effusions and a slightly elevated BNP. The patient had a similar episode in December 2023. The patient also had renal insufficiency and anemia. Part of her evaluation with Dr. Baker revealed lytic lesions in the skull and she has had several thoracic and lumbar vertebral compression fractures. She is being evaluated for multiple myeloma her globulins are elevated. Since admission the patient has been on IV Lasix infusion with good diuresis. She remains on high flow oxygen and is saturating appropriately. The patient was evaluated in the seated position eating breakfast and carrying on a normal conversation with her . Patient does have a history of some confusion when I was talking to her on the phone earlier this week I had to rely on the to give me an accurate past medical history and evaluation of her current symptoms. She subsequently went to the doctor's office and was sent to the emergency department due to hypoxia. She was scheduled to follow-up in our office that same morning after her visit with Dr. Baker. Currently the patient reports that she is breathing better she still complains of left lateral thoracic wall pain which she has had chronically felt to be related to her Thoracics vertebral compression fractures. The patient's last pacer check done 02/10/2024 showed her persistent chronic atrial fibrillation it was 100% of the time. There was no higher rate ventricular episodes. Pacer was functioning appropriately she is pacer dependent due to prior AV isael ablation for rate control. The patient's device check said the battery status is middle of service but then it said there is 1 month duration of battery life. This will be evaluated by the [facility] device clinic in the next 24 hours. EKG is unchanged and it shows a ventricular paced rhythm at 90 bpm. An echocardiogram done 03/25/2024 showed an ejection fraction of 45 to 50% with an akinetic apex. The patient does have a history of coronary artery disease with stents in the LAD and right coronary arteries in 2010. Several years after that she was cathed and her stents were widely patent with normal LV function. This could represent a Takotsubo's type syndrome. [facility] Medical History Iron deficiency anemia History of non-ST elevation myocardial infarction (NSTEMI) (2013) Longstanding persistent atrial fibrillation Essential (primary) hypertension Anxiety Hypothyroidism Hyperlipidemia Secondary pulmonary arterial hypertension Atherosclerosis of coronary artery of [place] heart without angina pectoris Paroxysmal atrial fibrillation Paroxysmal atrial flutter Sick sinus syndrome Home Medications ?Medication ?Instructions ?Recorded ?Last Taken ?Type buspirone 15 mg tablet 15 mg PO BID ANXIETY 06/02/13 Unknown History omeprazole 40 mg capsule,delayed 40 mg PO DAILY ACID REFLUX 06/02/13 09/15/16 08:30 History release nitroglycerin 0.4 mg sublingual 0.4 mg sublingual Q5M PRN CHEST 04/21/15 Unknown History tablet PAIN glimepiride 4 mg tablet 2 mg PO DAILY DIABETES 01/24/22 Unknown History acetaminophen 500 mg capsule 1,000 mg PO Q4H PRN PAIN 02/17/23 Unknown History amitriptyline 50 mg tablet 50 mg PO QHS DEPRESSION 02/17/23 Unknown History empagliflozin 10 mg tablet 10 mg PO DAILY DIABETES 02/17/23 Unknown History (Jardiance) ketotifen fumarate 0.025 % (0.035 1 drp ophthalmic (eye) BID PRN 02/17/23 Unknown History %) eye drops ([place]) ITCHING/ALLERGIES amlodipine 10 mg tablet 10 mg PO DAILY BLOOD PRESSURE 12/14/23 Unknown History levothyroxine 100 mcg tablet 100 mcg PO DAILY THYROID 12/14/23 Unknown History (Synthroid) rivaroxaban 20 mg tablet (Xarelto) 20 mg PO DAILY BLOOD THINNER 12/14/23 Unknown History simvastatin 20 mg tablet 20 mg PO QHS CHOLESTEROL 12/14/23 Unknown History potassium chloride 20 mEq 20 meq PO DAILY #30 tabs 12/16/23 Unknown Rx tablet,extended release(part/cryst) furosemide 40 mg tablet (Lasix) 40 mg PO DAILY #60 tabs 12/17/23 Unknown Rx metoprolol succinate 50 mg 50 mg PO DAILY #60 tabs 12/17/23 Unknown Rx tablet,extended release 24 hr oxycodone-acetaminophen 5 mg-325 1 tab PO Q6H PRN pain 3 days #12 02/06/24 Unknown Rx mg tablet (Percocet) tabs losartan 100 mg tablet 100 mg PO DAILY 03/25/24 Unknown History Allergy/AdvReac Type Severity Reaction Status Date / Time poison fany extract (Poison Allergy Rash Verified 03/25/24 09:54 Fany Extract) Sulfa (Sulfonamide Allergy Hives Verified 03/25/24 09:54 Antibiotics) Family History Mother Cancer Father Cancer Brother CAD (coronary artery disease) Sister CAD (coronary artery disease) Surgical History History of tubal ligation History of appendectomy History of hysterectomy History of left heart catheterization (10/09/13) History of coronary artery stent placement (09/2010) Hx of atrioventricular node ablation (03/31/16) Presence of cardiac pacemaker (04/26/15) Social History household members: spouse Smoking Status: Former smoker how long ago did patient quit smokin's alcohol intake: never substance use type: does not use caffeine: Yes Type: coffee Number of servings: 3 ROS Constitutional Constitutional: Reports as per HPI Eyes Eyes: Reports systems reviewed and no addt'l complaints, except as documented ENT HEENT: Reports systems reviewed and no addt'l complaints, except as documented Cardiovascular Cardiovascular: Reports as per HPI Respiratory/Chest Respiratory/Chest: Reports as per HPI Gastrointestinal Gastrointestinal: Reports systems reviewed and no addt'l complaints, except as documented Genitourinary Genitourinary: Reports as per HPI Musculoskeletal Musculoskeletal: Reports systems reviewed and no addt'l complaints, except as documented Integumentary Integumentary: Reports systems reviewed and no addt'l complaints, except as documented Neurologic Neurologic: Reports as per HPI Psychiatric Psychiatric: Reports as per HPI Endocrine Endocrinology: Reports systems reviewed and no addt'l complaints, except as documented Hematologic/Lymphatic Hematologic/Lymphatic: Reports as per HPI Allergic/Immunologic Allergic/Immunologic: Reports systems reviewed and no addt'l complaints, except as documented Physical Exam Const alert Constitutional Narrative: Slow to answer questions about past medical history and defers to her for help. HEENT normocephalic Eyes EOMs intact bilaterally Neck no JVD Carotids: Negative for bruit Chest Chest: left pectoral incision Resp normal respiratory effort Resp Narrative: Airvo in place patient breathing comfortably. The breath sounds are markedly diminished and dull in the bases and mcc up posteriorly. Auscultation: rales bilateral lower and breath sounds absent bilateral ([place] up posteriorly) Cardio regular rate, regular rhythm, S1 normal heart sound, no murmurs, no rub and no gallops Cardio Narrative: Split S2 consistent with paced rhythm GI normal to inspection, nondistended, normoactive bowel sounds Extremity no pedal edema Skin no rashes or lesions noted Neuro Neuro Narrative: Alert and oriented x 3 but slow to answer questions as noted above Psych mental status grossly normal, cooperative and affect normal Risk Stratification Risk Stratification Applicable: No Charges/Coding Visit Charges Inpatient E&M: 34955 Init Hosp L3 Objective Data Vital Signs: Vital Signs Temp Pulse Resp BP Pulse Ox O2 Del Method O2 Flow Rate 98.4 F 91 18 119/68 97 Airvo 45 03/27/24 08:00 03/27/24 08:00 03/27/24 08:00 03/27/24 08:00 03/27/24 08:13 03/27/24 08:13 03/27/24 08:13 FiO2 66 03/27/24 08:13 Oxygen Flow Rate (L/min) 45 Oxygen Delivery Method Airvo Weight: 201 lb 0.985 oz Body Mass Index (BMI) 30.5 Intake & Output: Intake and Output for Last 24 Hours 03/25/24 03/26/24 03/27/24 23:59 23:59 23:59 Intake Total 259.75 / 259.75 270 / 370 386.93 / 386.93 Output Total 2400 / 2400 3750 / 4500 2850 / 2850 Balance -2140.25 / -2140.25 -3480 / -4130 -2463.07 / -2463.07 Lab / Micro Data Attestation: I reviewed the patient's lab results. 03/26/24 04:35 03/27/24 04:58 Labs: Laboratory Results - last 24 hr 03/27/24 04:58: Sodium 134 L, Potassium 2.6 L*, Chloride 94 L, Carbon Dioxide 33.0 H, Anion Gap 7, BUN 11, Creatinine 1.14 H, Estim Creat Clear Calc 43.81, E st GFR (MDRD) Af Amer 58 L, Est GFR (MDRD) Non-Af 48 L, BUN/Creatinine Ratio 9.6 L, Glucose 77, Calcium 8.9 03/27/24 05:10: Phosphorus 4.0, Magnesium 1.8 Rhythm Strip Rhythm Strip: Ventricular paced rhythm Cardiology Labs/Tests 03/27/24 04:58: Sodium 134 L, Potassium 2.6 L*, Chloride 94 L, Carbon Dioxide 33.0 H, Anion Gap 7, BUN 11, Creatinine 1.14 H, Est GFR (MDRD) Af Amer 58 L, Est GFR (MDRD) Non-Af 48 L, BUN/Creatinine Ratio 9.6 L, Glucose 77, Calcium 8.9 03/27/24 05:10: Phosphorus 4.0, Magnesium 1.8 Rhythm: EKG: ECHO: Stress Test: Cardiac Cath: PCI: CT Surgery: Holter monitor: EPS: PPM: CXR: Chest CT Scan: Radiography Diagnostic Testing: Radiology Impression Echocardiogram 03/25/24 14:04 Interpretation Summary The estimated ejection fraction is 45-50 %. Unable to assess diastolic dysfunction. [place] : Akinetic. Moderate (2+) mitral valve insufficiency. Mild (1+) aortic valve insufficiency. Ordering Physician: Juice Elizabeth Referring Physician: Matt Rocha Performed By: Josselin Rodrigez, HEMANT, RVT
[2024-03-27] MEDS: Potassium Chloride Oral Tablet 20 MEQ 40 MEQ PO (09:50)
[2024-03-27] MEDS: Potassium Chloride Oral Tablet 20 MEQ PO (09:50)
[2024-03-27] MEDS: busPIRone 15 MG TABLET PO ×2 (09:51→21:11)
[2024-03-27] MEDS: Pantoprazole Sodium 40 MG Tablet PO (09:51)
[2024-03-27] MEDS: Metoprolol(XL)Succ 50 MG Tablet PO (09:51)
[2024-03-27] MEDS: amLODIPine 10 MG Tablet PO (09:51)
[2024-03-27] MEDS: oxyCODONE 5 MG Tablet PO (09:53)
[2024-03-27] MEDS: Acetaminophen 325 MG Tablet 650 MG PO (09:53)
--- NOTE | 2024-03-27 11:53 | PCM.PN.HOSP ---
Reason for Visit Reason for Visit: Diagnoses Essential (primary) hypertension (03/25/24) Atherosclerotic heart disease of [place] coronary artery without angina pectoris (03/25/24) Longstanding persistent atrial fibrillation (03/25/24) Heart failure, unspecified (03/25/24) Acute respiratory failure with hypoxia (03/25/24) Presence of cardiac pacemaker (03/25/24) Subjective Subjective Saw patient at bedside this morning, present. Patient appeared similar to yesterday. Repeated chest x-ray this morning and it showed stable findings for previous with no significant change in her pleural effusions. She was still requiring high flow nasal cannula but was sitting up comfortably in bedside chair and had no increased work of breathing noted. Patient did states she has continued to have significant urine output on the Lasix drip. She denies feeling very dry. States her breathing feels a little better than yesterday. She does continue to have mild pain on her left side, similar to yesterday. No other new concerns today. Objective Data Objective Data Vital Signs: Vital Signs Temp Pulse Resp BP Pulse Ox O2 Del Method O2 Flow Rate 98.4 F 91 18 119/68 97 Airvo 45 03/27/24 08:00 03/27/24 09:51 03/27/24 08:00 03/27/24 08:00 03/27/24 08:13 03/27/24 08:13 03/27/24 11:18 FiO2 66 03/27/24 08:13 Oxygen Flow Rate (L/min) 45 Oxygen Delivery Method Airvo Weight: 91.2 kg Body Mass Index (BMI) 30.5 Intake & Output: Intake and Output for Last 24 Hours 03/25/24 03/26/24 03/27/24 23:59 23:59 23:59 Intake Total 259.75 / 259.75 270 / 370 436.93 / 436.93 Output Total 2400 / 2400 3750 / 4500 3250 / 3250 Balance -2140.25 / -2140.25 -3480 / -4130 -2813.07 / -2813.07 Lab / Micro Data 03/26/24 04:35 03/27/24 11:35 Labs: Laboratory Results - last 24 hr 03/27/24 04:58: Sodium 134 L, Potassium 2.6 L*, Chloride 94 L, Carbon Dioxide 33.0 H, Anion Gap 7, BUN 11, Creatinine 1.14 H, Estim Creat Clear Calc 43.81, Est GFR (MDRD) Af Amer 58 L, Est GFR (MDRD) Non-Af 48 L, BUN/Creatinine Ratio 9.6 L, Glucose 77, Calcium 8.9 03/27/24 05:10: Phosphorus 4.0, Magnesium 1.8 Rhythm Strip Rhythm Strip: Ventricular paced rhythm Physical Exam Const alert and oriented x3 Constitutional Narrative: Elderly female, chronically ill-appearing but energy level improved from admission. Back pain improving. Breathing comfortably on high flow nasal cannula, similar to yesterday. General Appearance: cooperative HEENT normocephalic, head/scalp atraumatic, hearing grossly normal bilaterally and nasal mucous membranes and turbinates normal Eyes PERRL, EOMs intact bilaterally and conjunctivae normal Neck full ROM Chest inspection of chest normal Resp Resp Narrative: Breathing comfortably on high flow nasal cannula with similar requirements to yesterday. Still with significantly decreased breath sounds in bilateral lung bases with mild crackles noted bilaterally. No wheezing noted. Cardio regular rate, regular rhythm, no murmurs and peripheral pulses 2+ throughout GI normal to inspection, nondistended, normoactive bowel sounds, soft to palpation, non-tender and non-distended Back/Spine Back/Spine Narrative: Mild tenderness to palpation in lower thoracic spine. Improved from admission, much less pain with movement than on admission. Extremity normal to inspection Extremity Narrative: +1-2 lower extremity pitting edema, stable. Skin no rashes or lesions noted Neuro moves all extremities and no focal motor deficits Speech: speech normal Psych mental status grossly normal Assessment & Plan Assessment/Plan (1) Acute hypoxemic respiratory failure: (2) Acute exacerbation of CHF (congestive heart failure): QUALIFIERS: Heart failure type: unspecified Qualified Code(s): I50.9 - Heart failure, unspecified PLAN: Plan Patient is an 83-year-old female who presented [facility] ED on 03/25/2024 with worsening shortness of breath and hypoxia. 1. Acute hypoxic respiratory failure suspected secondary to recurrent CHF exacerbation ? Cardiology following. Presented with worsening shortness of breath and hypoxia. Not on home oxygen. Required high flow nasal cannula in ED for adequate oxygen saturations. Chest x-ray showed vascular congestion with bilateral pleural effusions and cardiomegaly and CT imaging noted below also showed large bilateral pleural effusions. BNP mildly elevated from baseline. Notably had similar presentation in December, had good improvement with Lasix drip and was weaned off submental oxygen prior to discharge. Echo in December showed EF 55%, mild pulmonary hypertension, severe LA and RA dilation, otherwise no abnormalities. Repeat limited echo on 03/26 showed EF 45 to 50% with akinetic cardiac apex. Per cardiology, echo findings may be related to monoclonal gammopathy with possible multiple myeloma as noted below. Started on IV Lasix drip on admission with good urine output and some improvement in oxygenation status. However, chest x-ray on 03/27 appeared similar to on admission with continued bilateral pleural effusions. Radiology consulted for bilateral diagnostic and therapeutic thoracentesis to be done on 03/28. Held dose of Xarelto on 03/27. Continue Lasix drip for now and continue to monitor strict I's and O's. 2. Acute on chronic back pain with debility ? PT/OT/case management following. Unclear etiology for worsening back pain over the past few days. CT T-spine and L-spine on admission showed known chronic compression fractures with no significant worsening from previous. Pain improving, worsening pain may in part have been due to increased pressure from bilateral pleural effusions. Continue treatment with scheduled Tylenol, p.o. oxycodone and IV Dilaudid as needed. 3. 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 Follows with Dr. Baker. 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 Plan is for bone marrow biopsy and further imaging evaluation soon to determine if patient may have conversion to multiple myeloma. Hemoglobin stable at baseline on admission. No current inpatient needs, will need close outpatient follow-up after discharge. 4. Mild acute sigmoid diverticulitis ? Noted on CT abdomen pelvis on admission. Patient with only mild abdominal pain and no significant change in bowel movements recently. Unclear if patient has had episodes of diverticulitis in the past. Patient tolerating clear liquid diet without issue, advanced to regular diet on 03/27. Continue IV Zosyn for now. Can consider GI consult as needed. 5. Hypokalemia ? Potassium 2.9 on admit. Has history of mild chronic hypokalemia and is on 20 mEq of potassium daily. Continue home potassium and monitor potassium daily, and aggressively replete while on IV Lasix. 6. Hyponatremia ? Sodium 132 on admit. Suspect due to volume overload from heart failure exacerbation. Monitor BMP daily. 7. CKD stage III ? Creatinine 1.37 on admit, at baseline. Monitor BMP daily given heavy diuresis with Lasix drip as noted above. Chronic medical conditions: ? Obesity: BMI 30 on admit. Complicates hospital course, care and prognosis. ? History of CAD s/p stenting, hypertension, hyperlipidemia: Blood pressure stable on admit. Continue home Toprol, losartan and amlodipine. Continue home statin and Xarelto. ? Paroxysmal A-fib on Eliquis, history of AV isael ablation s/p pacemaker placement: Has been in normal sinus rhythm since admit. Continue home Xarelto and Toprol. Pacemaker to be evaluated on morning of 03/28 per cardiology. ? GERD: Continue home PPI. ? Type 2 diabetes mellitus: Treated with sliding scale insulin while inpatient, adjust as needed. DVT prophylaxis: Not indicated, on Xarelto CODE STATUS: Full code, verified Expected disposition: TBD Total clinical time spent by myself addressing the patient's medical issues, reviewing all the data, and collaborating with patient's care team: 35 minutes. Charges/Coding Visit Charges Inpatient E&M: 86889 Subs Hosp L2
[2024-03-27 12:17] LABS: Anion Gap 6 (5-15); BUN 11 mg/dL (7-18); Calcium,Total 9.4 mg/dL (8.5-10.1); Chloride 94 mmol/L (98-107); Creatinine, Serum 1.37 mg/dL (0.55-1.02); EST Glomerular Filtration Rate 39 mL/min (>60); Est Glom Filt Rate - Afr Amer 47 mL/min (>60); Estimated Creatinine Clearance 36.11 ml/min; Glucose 165 mg/dL (74-106); Potassium 3.9 mmol/L (3.5-5.1); Sodium Level 133 mmol/L (136-145)
[2024-03-27] MEDS: Amitriptyline 25 MG Tablet PO (21:11)
[2024-03-27] MEDS: Atorvastatin Calcium 10 MG Tablet PO (21:11)
[2024-03-28] VITALS (11 sets, daily range): BP systolic 99–133; BP diastolic 53–70; PULSE 90–91; RESP 16–20; TEMP 36.1–36.9; O2SAT 92–97; BMI 28.9
[2024-03-28] MEDS: Piperacil/Tazobactam 3.375 GM in 0.9% Normal Saline (50mL MB+) 50 ML IV ×3 (06:04→21:15)
[2024-03-28] MEDS: Levothyroxine 100 MCG Tablet PO (06:06)
[2024-03-28] MEDS: Acetaminophen 325 MG Tablet 650 MG PO (06:19)
[2024-03-28] MEDS: oxyCODONE 5 MG Tablet PO (06:20)
[2024-03-28 06:50] LABS: ALB/GLOB Ratio 0.5 RATIO (0.9-2.4); AST(SGOT) 15 U/L (15-37); Alanine Aminotransfer ALT/SGPT 12 U/L (13-56); Albumin, Serum 3.1 g/dL (3.2-5.0); Alkaline Phosphatase 152 U/L (45-117); Anion Gap 7 (5-15); BUN 15 mg/dL (7-18); Calcium,Total 9.8 mg/dL (8.5-10.1); Chloride 93 mmol/L (98-107); Creatinine, Serum 1.36 mg/dL (0.55-1.02); EST Glomerular Filtration Rate 39 mL/min (>60); Est Glom Filt Rate - Afr Amer 48 mL/min (>60); Estimated Creatinine Clearance 35.42 ml/min; Globulin 6.1 g/dL (2.2-4.2); Glucose 115 mg/dL (74-106); LDH 219 U/L (84-246); Potassium 3.2 mmol/L (3.5-5.1); Protein, Total 9.2 g/dL (6.4-8.2); Sodium Level 132 mmol/L (136-145)
--- NOTE | 2024-03-28 08:53 | PN.CARD_ITS ---
Subjective Subjective Feels better. Denies any complaints. Objective Data Vital Signs: Vital Signs Temp Pulse Resp BP Pulse Ox O2 Del Method O2 Flow Rate 97.6 F L 90 20 H 132/68 H 97 High Flow 5 03/28/24 06:10 03/28/24 06:10 03/28/24 06:10 03/28/24 06:10 03/28/24 07:54 03/28/24 07:54 03/28/24 07:54 FiO2 40 03/27/24 20:55 Oxygen Flow Rate (L/min) 5 Oxygen Delivery Method High Flow Weight: 190 lb 4.8 oz Body Mass Index (BMI) 28.9 Intake & Output: Intake and Output for Last 24 Hours 03/26/24 03/27/24 03/28/24 23:59 23:59 23:59 Intake Total 270 / 370 516.93 / 516.93 50 / 50 Output Total 3750 / 4500 4775 / 4775 1750 / 1750 Balance -3480 / -4130 -4258.07 / -4258.07 -1700 / -1700 Lab / Micro Data 03/26/24 04:35 03/28/24 06:14 Labs: Laboratory Results - last 24 hr 03/27/24 05:10: Phosphorus 4.0, Magnesium 1.8 03/27/24 11:35: Sodium 133 L, Potassium 3.9, Chloride 94 L, Carbon Dioxide 33.0 H, Anion Gap 6, BUN 11, Creatinine 1.37 H, Estim Creat Clear Calc 36.11, Est GFR (MDRD) Af Amer 47 L, Est GFR (MDRD) Non-Af 39 L, BUN/Creatinine Ratio 8.0 L, G lucose 165 H, Calcium 9.4 03/28/24 06:14: Sodium 132 L, Potassium 3.2 L, Chloride 93 L, Carbon Dioxide 32.0, Anion Gap 7, BUN 15, Creatinine 1.36 H, Estim Creat Clear Calc 35.42, Est GFR (MDRD) Af Amer 48 L, Est GFR (MDRD) Non-Af 39 L, BUN/Creatinine Ratio 11.0, Glucose 115 H, Calcium 9.8, Total Bilirubin 0.90, AST 15, ALT 12 L, Alkaline Phosphatase 152 H, Lactate Dehydrogenase 219, Total Protein 9.2 H, Albumin 3.1 L , Globulin 6.1 H, Albumin/Globulin Ratio 0.5 L Rhythm Strip Rhythm Strip: Ventricular paced rhythm Cardiology Labs/Tests 03/27/24 05:10: Phosphorus 4.0, Magnesium 1.8 03/27/24 11:35: Sodium 133 L, Potassium 3.9, Chloride 94 L, Carbon Dioxide 33.0 H, Anion Gap 6, BUN 11, Creatinine 1.37 H, Est GFR (MDRD) Af Amer 47 L, Est GFR (MDRD) Non-Af 39 L, BUN/Creatinine Ratio 8.0 L, Glucose 165 H, Calcium 9.4 03/28/24 06:14: Sodium 132 L, Potassium 3.2 L, Chloride 93 L, Carbon Dioxide 32.0, Anion Gap 7, BUN 15, Creatinine 1.36 H, Est GFR (MDRD) Af Amer 48 L, Est GFR (MDRD) Non-Af 39 L, BUN/Creatinine Ratio 11.0, Glucose 115 H, Calcium 9.8, Total Bilirubin 0.90 Rhythm: EKG: ECHO: Stress Test: Cardiac Cath: PCI: CT Surgery: Holter monitor: EPS: PPM: CXR: Chest CT Scan: Radiography Diagnostic Testing: Radiology Impression Chest X-Ray 03/27/24 08:04 IMPRESSION: Bilateral mild pleural effusions are possible infiltrate/atelectasis. Cardiomegaly. Electronically Signed: Manan Soto DO at 17:09 EDT Reading Location ID and State: [facility] / [place] Tel [phone], Service support , Physical Exam Narrative Comfortable. No apparent distress. Heart sounds 1 and 2 are noted. 2/6 systolic murmur at apex. Chest examination reveals decreased air entry at bilateral bases. Alert oriented x 3. No ankle edema. Assessment & Plan Assessment/Plan (1) Acute exacerbation of CHF (congestive heart failure): QUALIFIERS: Heart failure type: unspecified Qualified Code(s): I 50.9 - Heart failure, unspecified PLAN: Continue furosemide. Switch to p.o. Beta-blockers, losartan, SGLT2 inhibitor. (2) Coronary artery disease: PLAN: Aspirin. Risk factor modification. (3) Hypertension: PLAN: Metoprolol, furosemide, losartan, amlodipine (4) Sick sinus syndrome: PLAN: Status post AV isael ablation and status post permanent pacemaker placement. (5) Longstanding persistent atrial fibrillation: PLAN: Resume Xarelto after thoracentesis.
[2024-03-28 08:56] LABS: International Normalized Ratio 2.5; Prothrombin Time (Protime)PT. 26.8 SECONDS (11.7-14.9)
[2024-03-28 08:57] LABS: Partial Thromboplast Time 49.7 Seconds (24.1-36.2)
[2024-03-28] MEDS: Potassium Chloride Oral Tablet 20 MEQ 40 MEQ PO (09:24)
[2024-03-28] MEDS: busPIRone 15 MG TABLET PO ×2 (09:32→21:11)
[2024-03-28] MEDS: Pantoprazole Sodium 40 MG Tablet PO (09:32)
[2024-03-28] MEDS: 0.9% Saline Lock 10 ML Syringe IV ×3 (09:34→21:12)
[2024-03-28] MEDS: Metoprolol(XL)Succ 50 MG Tablet PO (09:39)
[2024-03-28] MEDS: amLODIPine 10 MG Tablet PO (09:39)
[2024-03-28] MEDS: Furosemide 40 MG Tablet PO ×2 (09:43→17:19)
--- NOTE | 2024-03-28 11:48 | US_ITS ---
STUDY: SUPERFICIAL ULTRASOUND - RIGHT PLEURAL SPACE. REASON FOR EXAM: Female, 83 years old. Persistent large b/l pleural effusions -- diagnostic and therapeutic TECHNIQUE: A superficial ultrasound was performed with real-time and static claros-scale imaging. COMPARISON: None. FINDINGS: Not enough fluid for a safe thoracentesis. US/Chest IMPRESSION: Not enough fluid for safe thoracentesis. Electronically Signed: Bello Lozoya MD at 15:18 EDT ,
--- NOTE | 2024-03-28 12:07 | PN.HOSP_ITS ---
Reason for Visit Reason for Visit: Diagnoses Essential (primary) hypertension (03/25/24) Atherosclerotic heart disease of [place] coronary artery without angina pectoris (03/25/24) Longstanding persistent atrial fibrillation (03/25/24) Sick sinus syndrome (03/25/24) Heart failure, unspecified (03/25/24) Acute respiratory failure with hypoxia (03/25/24) Presence of cardiac pacemaker (03/25/24) Subjective Subjective Saw patient at bedside this morning, present. Patient had been weaned down to 7 L high flow nasal cannula this morning when I saw her, down from Airvo that she has been on the last few days. She was breathing comfortably with no increased work of breathing on 7 L. She states that she feels like she is continuing to slowly improve each day from a breathing standpoint. She reports her back and left-sided chest pain are remaining stable and are improved from admission. No other new concerns today. Objective Data Objective Data Vital Signs: Vital Signs Temp Pulse Resp BP Pulse Ox O2 Del Method O2 Flow Rate 97.3 F L 91 16 124/69 H 97 High Flow 4 03/28/24 12:03 03/28/24 12:03 03/28/24 12:03 03/28/24 12:03 03/28/24 12:03 03/28/24 12:03 03/28/24 12:03 FiO2 40 03/27/24 20:55 Oxygen Flow Rate (L/min) 4 Oxygen Delivery Method High Flow Weight: 86.319 kg Body Mass Index (BMI) 28.9 Intake & Output: Intake and Output for Last 24 Hours 03/26/24 03/27/24 03/28/24 23:59 23:59 23:59 Intake Total 270 / 370 516.93 / 516.93 424.67 / 424.67 Output Total 3750 / 4500 4775 / 4775 2275 / 2275 Balance -3480 / -4130 -4258.07 / -4258.07 -1850.33 / -1850.33 Lab / Micro Data 03/26/24 04:35 03/28/24 06:14 Labs: Laboratory Results - last 24 hr 03/27/24 11:35: Sodium 133 L, Potassium 3.9, Chloride 94 L, Carbon Dioxide 33.0 H, Anion Gap 6, BUN 11, Creatinine 1.37 H, Estim Creat Clear Calc 36.11, Est GFR (MDRD) Af Amer 47 L, Est GFR (MDRD) Non-Af 39 L, BUN/Creatinine Ratio 8.0 L, G lucose 165 H, Calcium 9.4 03/28/24 06:14: Sodium 132 L, Potassium 3.2 L, Chloride 93 L, Carbon Dioxide 32.0, Anion Gap 7, BUN 15, Creatinine 1.36 H, Estim Creat Clear Calc 35.42, Est GFR (MDRD) Af Amer 48 L, Est GFR (MDRD) Non-Af 39 L, BUN/Creatinine Ratio 11.0, Glucose 115 H, Calcium 9.8, Total Bilirubin 0.90, AST 15, ALT 12 L, Alkaline Phosphatase 152 H, Lactate Dehydrogenase 219, Total Protein 9.2 H, Albumin 3.1 L , Globulin 6.1 H, Albumin/Globulin Ratio 0.5 L 03/28/24 08:10: PT 26.8 H, INR 2.5, APTT 49.7 H Radiography Diagnostic Testing: Radiology Impression Chest X-Ray 03/27/24 08:04 IMPRESSION: Bilateral mild pleural effusions are possible infiltrate/atelectasis. Cardiomegaly. Electronically Signed: Manan Soto DO at 17:09 EDT Reading Location ID and State: [facility] / [place] Tel [phone], Service support , Rhythm Strip Rhythm Strip: Ventricular paced rhythm Physical Exam Const alert and oriented x3 Constitutional Narrative: Elderly female, chronically ill-appearing but energy level improved from admission. Back pain improving. Breathing comfortably on 7 L nasal cannula, improved from yesterday. General Appearance: cooperative HEENT normocephalic, head/scalp atraumatic, hearing grossly normal bilaterally and nasal mucous membranes and turbinates normal Eyes PERRL, EOMs intact bilaterally and conjunctivae normal Neck full ROM Chest inspection of chest normal Resp Resp Narrative: Breathing comfortably on 7 L nasal cannula, improved from yesterday. Still has some decreased breath sounds in bilateral lung bases but improving from yesterday and no crackles or wheezing noted. Cardio regular rate, regular rhythm, no murmurs and peripheral pulses 2+ throughout GI normal to inspection, nondistended, normoactive bowel sounds, soft to palpation, non-tender and non-distended Back/Spine Back/Spine Narrative: Mild tenderness to palpation in lower thoracic spine. Improved from admission, much less pain with movement than on admission. Stable. Extremity normal to inspection Extremity Narrative: +1-2 lower extremity pitting edema, stable. Skin no rashes or lesions noted Neuro moves all extremities and no focal motor deficits Speech: speech normal Psych mental status grossly normal Assessment & Plan Assessment/Plan (1) Acute hypoxemic respiratory failure: (2) Acute exacerbation of CHF (congestive heart failure): QUALIFIERS: Heart failure type: unspecified Qualified Code(s): I 50.9 - Heart failure, unspecified PLAN: Plan Patient is an 83-year-old female who presented [facility] ED on 03/25/2024 with worsening shortness of breath and hypoxia. 1. Acute hypoxic respiratory failure suspected secondary to recurrent CHF exacerbation ? Cardiology following. Presented with worsening shortness of breath and hypoxia. Not on home oxygen. Required high flow nasal cannula in ED for adequate oxygen saturations. Chest x-ray showed vascular congestion with bilateral pleural effusions and cardiomegaly and CT imaging noted below also showed large bilateral pleural effusions. BNP mildly elevated from baseline. Notably had similar presentation in December, had good improvement with Lasix drip and was weaned off submental oxygen prior to discharge. Echo in December showed EF 55%, mild pulmonary hypertension, severe LA and RA dilation, otherwise no abnormalities. Repeat limited echo on 03/26 showed EF 45 to 50% with akinetic cardiac apex. Per cardiology, echo findings may be related to monoclonal gammopathy with possible multiple myeloma as noted below. Started on IV Lasix drip on admission with good urine output and some improvement in oxygenation status. However, chest x-ray on 03/27 appeared similar to on admission with continued bilateral pleural effusions. Radiology planning for bilateral diagnostic and therapeutic thoracentesis today, Xarelto dose held on 03/27. Oxygen requirements improving on 03/28, Lasix drip discontinued and patient started on p.o. Lasix. Home SGLT2 inhibitor and losartan restarted on 03/28. Continue home beta-rosaura. 2. Acute on chronic back pain with debility ? PT/OT/case management following. Unclear etiology for worsening back pain over the past few days. CT T-spine and L-spine on admission showed known chronic compression fractures with no significant worsening from previous. Pain improving, worsening pain may in part have been due to increased pressure from bilateral pleural effusions. Continue treatment with scheduled Tylenol, p.o. oxycodone and IV Dilaudid as needed. 3. 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 Follows with Dr. Baker. 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 Plan is for bone marrow biopsy and further imaging evaluation soon to determine if patient may have conversion to multiple myeloma. Hemoglobin stable at baseline on admission. No current inpatient needs, will need close outpatient follow-up after discharge. 4. Mild acute sigmoid diverticulitis ? Noted on CT abdomen pelvis on admission. Patient with only mild abdominal pain and no significant change in bowel movements recently. Unclear if patient has had episodes of diverticulitis in the past. Patient tolerating clear liquid diet without issue, advanced to regular diet on 03/27. Continue IV Zosyn for now. 5. Hypokalemia ? Potassium 2.9 on admit. Has history of mild chronic hypokalemia and is on 20 mEq of potassium daily. Continue home potassium and monitor potassium daily, and aggressively replete while on Lasix. 6. Hyponatremia ? Sodium 132 on admit. Suspect due to volume overload from heart failure exacerbation. Monitor BMP daily. 7. CKD stage III ? Creatinine 1.37 on admit, at baseline. Monitor BMP daily given heavy diuresis with Lasix drip as noted above. Chronic medical conditions: ? Obesity: BMI 30 on admit. Complicates hospital course, care and prognosis. ? History of CAD s/p stenting, hypertension, hyperlipidemia: Blood pressure stable on admit. Continue home Toprol, losartan and amlodipine. Continue home statin and Xarelto. ? Paroxysmal A-fib on Eliquis, history of AV isael ablation s/p pacemaker placement: Has been in normal sinus rhythm since admit. Continue home Xarelto and Toprol. ? GERD: Continue home PPI. ? Type 2 diabetes mellitus: Treating with sliding scale insulin while inpatient, adjust as needed. DVT prophylaxis: Not indicated, on Xarelto CODE STATUS: Full code, verified Expected disposition: Home, TBD Total clinical time spent by myself addressing the patient's medical issues, reviewing all the data, and collaborating with patient's care team: 35 minutes. Charges/Coding Visit Charges Inpatient E&M: 28402 Subs Hosp L2
[2024-03-28] MEDS: Polyethylene Glycol 3350 17 GM PACKET PO (16:00)
[2024-03-28] MEDS: Senna Tablet 2 TABLET PO ×2 (16:00→21:11)
[2024-03-28] MEDS: Rivaroxaban 20 MG Tablet PO (17:19)
[2024-03-28] MEDS: Atorvastatin Calcium 10 MG Tablet PO (21:11)
[2024-03-28] MEDS: Amitriptyline 25 MG Tablet PO (21:11)
[2024-03-29] VITALS (7 sets, daily range): BP systolic 111–124; BP diastolic 54–61; PULSE 90–91; RESP 18; TEMP 36.6–36.7; O2SAT 87–94; BMI 28.6
[2024-03-29] MEDS: Levothyroxine 100 MCG Tablet PO (05:39)
[2024-03-29] MEDS: Piperacil/Tazobactam 3.375 GM in 0.9% Normal Saline (50mL MB+) 50 ML IV (05:41)
[2024-03-29 06:16] LABS: Anion Gap 7 (5-15); BUN 16 mg/dL (7-18); BUN/Creat Ratio 13.2 RATIO (10-20); Calcium,Total 9.2 mg/dL (8.5-10.1); Chloride 96 mmol/L (98-107); Creatinine, Serum 1.21 mg/dL (0.55-1.02); EST Glomerular Filtration Rate 45 mL/min (>60); Est Glom Filt Rate - Afr Amer 54 mL/min (>60); Estimated Creatinine Clearance 39.61 ml/min; Glucose 106 mg/dL (74-106); Potassium 3.2 mmol/L (3.5-5.1); Sodium Level 135 mmol/L (136-145)
[2024-03-29] MEDS: Potassium Chloride Oral Tablet 20 MEQ 40 MEQ PO (08:49)
[2024-03-29] MEDS: Pantoprazole Sodium 40 MG Tablet PO (08:50)
[2024-03-29] MEDS: Polyethylene Glycol 3350 17 GM PACKET PO (08:50)
[2024-03-29] MEDS: Metoprolol(XL)Succ 50 MG Tablet PO (08:50)
[2024-03-29] MEDS: Senna Tablet 2 TABLET PO (08:50)
[2024-03-29] MEDS: busPIRone 15 MG TABLET PO (08:50)
[2024-03-29] MEDS: Losartan Potassium 100 MG Tablet PO (08:50)
[2024-03-29] MEDS: Furosemide 40 MG Tablet PO (08:50)
--- NOTE | 2024-03-29 11:20 | PN.CARD_ITS ---
Subjective Subjective Feels much improved. Denies any complaints. Objective Data Vital Signs: Vital Signs Temp Pulse Resp BP Pulse Ox O2 Del Method O2 Flow Rate 97.9 F 90 18 124/61 H 93 Room Air 3 03/29/24 08:46 03/29/24 08:50 03/29/24 08:46 03/29/24 08:46 03/29/24 09:31 03/29/24 09:31 03/29/24 08:46 FiO2 40 03/27/24 20:55 Oxygen Flow Rate (L/min) [ 2 AMBULATING with Oxygen #1] Oxygen Flow Rate (L/min) 3 Oxygen Delivery Method Room Air Weight: 188 lb 4.396 oz Body Mass Index (BMI) 28.6 Intake & Output: Intake and Output for Last 24 Hours 03/27/24 03/28/24 03/29/24 23:59 23:59 23:59 Intake Total 516.93 / 516.93 954.67 / 954.67 100 / 100 Output Total 4775 / 4775 3525 / 3525 750 / 750 Balance -4258.07 / -4258.07 -2570.33 / -2570.33 -650 / -650 Lab / Micro Data 03/26/24 04:35 03/29/24 05:36 Labs: Laboratory Results - last 24 hr 03/29/24 05:36: Sodium 135 L, Potassium 3.2 L, Chloride 96 L, Carbon Dioxide 32.0, Anion Gap 7, BUN 16, Creatinine 1.21 H, Estim Creat Clear Calc 39.61, Est GFR (MDRD) Af Amer 54 L, Est GFR (MDRD) Non-Af 45 L, BUN/Creatinine Ratio 13.2, Glucose 106, Calcium 9.2 Rhythm Strip Rhythm Strip: Ventricular paced rhythm Cardiology Labs/Tests 03/29/24 05:36: Sodium 135 L, Potassium 3.2 L, Chloride 96 L, Carbon Dioxide 32.0, Anion Gap 7, BUN 16, Creatinine 1.21 H, Est GFR (MDRD) Af Amer 54 L, Est GFR (MDRD) Non-Af 45 L, BUN/Creatinine Ratio 13.2, Glucose 106, Calcium 9.2 Rhythm: EKG: ECHO: Stress Test: Cardiac Cath: PCI: CT Surgery: Holter monitor: EPS: PPM: CXR: Chest CT Scan: Radiography Diagnostic Testing: Radiology Impression Chest Ultrasound 03/28/24 11:48 IMPRESSION: Not enough fluid for safe thoracentesis. Electronically Signed: Bello Lozoya MD at 15:18 EDT , Physical Exam Narrative Comfortable. No apparent distress. Heart sounds 1 and 2 are noted. Chest examination reveals decreased air entry at bilateral bases. Alert oriented x 3. No ankle edema. Assessment & Plan Assessment/Plan (1) Acute exacerbation of CHF (congestive heart failure): QUALIFIERS: Heart failure type: unspecified Qualified Code(s): I 50.9 - Heart failure, unspecified PLAN: Symptomatically better. Compensated. Continue furosemide. Increase potassium supplementation to 20 mill equivalent twice daily. (2) Coronary artery disease: PLAN: Aspirin. Risk factor modification. (3) Hypertension: PLAN: Metoprolol, furosemide, losartan, amlodipine (4) Sick sinus syndrome: PLAN: Status post AV isael ablation and status post permanent pacemaker placement. (5) Longstanding persistent atrial fibrillation: PLAN: Xarelto. PLAN: Plan May discharge home from cardiology standpoint. Follow-up as outpatient in 1 to 2 weeks time.
--- NOTE | 2024-03-29 11:28 | DCINST_ITS ---
Discharge Instructions Diet Discharge Diet: 8 Cup Fluid Restriction and 4000 mg Sodium Diet Activity Discharge Activity: No Restrictions Follow Up Care Test Results: Test results from this visit will be discussed in further detail at your follow- up appointment, if applicable. Discharge Plan Admission Admit Date/Time: 03/25/24 13:16 Primary Reason for Your Visit: Shortness of breath Attending Provider: Juice Elizabeth Primary Care Provider: Matt Rocha Consulting Providers: Terrance Zuniga Instructions Additional Instructions / Restrictions: Please take 40 mEq of potassium daily (you were taking 20) going forward for low potassium. Stop taking your amlodipine. Otherwise continue your other home medications as normal, including Lasix 40 mg once daily. Follow-up with the heart doctor in 1 to 2 weeks. Discharge Orders/Prescriptions Prescriptions: New potassium chloride 20 mEq Tablet,Er Particles/Crystals 40 meq PO DAILYCM 30 Days Qty: 60 2RF Continued glimepiride 4 mg tablet 2 mg PO DAILY amitriptyline 50 mg tablet 50 mg PO QHS Jardiance 10 mg tablet 10 mg PO DAILY ketotifen fumarate [[place]away] 0.025 % (0.035 %) drops 1 drp ophthalmic (eye) BID PRN (Reason: ITCHING/ALLERGIES ) omeprazole 40 MG capsule 40 mg PO DAILY buspirone 15 MG tablet 15 mg PO BID nitroglycerin 0.4 MG tablet 0.4 mg SUBLINGUAL Q5M PRN (Reason: CHEST PAIN ) levothyroxine [Synthroid] 100 mcg tablet 100 mcg PO DAILY simvastatin 20 mg tablet 20 mg PO QHS Xarelto 20 mg tablet 20 mg PO DAILY metoprolol succinate 50 mg Tablet Extended Release 24 Hr 50 mg PO DAILY Qty: 60 0RF furosemide [Lasix] 40 mg tablet 40 mg PO DAILY Qty: 60 0RF losartan 100 mg tablet 100 mg PO DAILY Discontinued acetaminophen 500 mg capsule 1,000 mg PO Q4H PRN (Reason: PAIN ) amlodipine 10 mg tablet 10 mg PO DAILY potassium chloride 20 mEq Tablet,Er Particles/Crystals 20 meq PO DAILY Qty: 30 0RF oxycodone-acetaminophen [Percocet] 5-325 mg tablet 1 tab PO Q6H PRN (Reason: pain) 3 Days Qty: 12 0RF Referrals / Follow Up: Matt Rocha MD [Primary Care Provider] - Disposition Disposition (needs filled in before D/C Order can be placed): Home, Self Care
--- NOTE | 2024-03-29 11:33 | PCM.DC.SUM ---
Providers Date of Admission: 03/25/24 Date of Discharge: 03/29/24 Primary Care Physician: Dr. Matt Rocha MD Consultations 03/26/24 16:15 Consult: Cardiology Routine Consulting Provider: Terrance Zuniga Reason for Consult: CHF exacerbation w/ new reduced EF 45-50% w/ akinetic apex EMERGENT Consult: No MD Notified: Yes Date Notified: 03/26/24 Time Notified: 16:32 Method of Notification: Text Reason For Visit: CHF EXACERBATION WITH ACUTE HYPOXIC RESPIRATORY Diagnosis Discharge Diagnosis (1) Acute exacerbation of CHF (congestive heart failure): Status: Chronic Code(s): I50.9 - Heart failure, unspecified Qualifiers: Heart failure type: unspecified Qualified Code(s): I50.9 - Heart failure, unspecified (2) Coronary artery disease: Status: Acute Code(s): I25.10 - Atherosclerotic heart disease of [place] coronary artery without angina pectoris (3) Hypertension: Status: Chronic Code(s): I10 - Essential (primary) hypertension (4) Sick sinus syndrome: Status: Chronic Code(s): I49.5 - Sick sinus syndrome (5) Longstanding persistent atrial fibrillation: Status: Chronic Code(s): I48.11 - Longstanding persistent atrial fibrillation Medications at Discharge Home Medications buspirone 15 mg tablet 15 mg PO BID ANXIETY 06/02/13 omeprazole 40 mg capsule,delayed release 40 mg PO DAILY ACID REFLUX 06/02/13 nitroglycerin 0.4 mg sublingual tablet 0.4 mg sublingual Q5M PRN CHEST PAIN 04/21/15 glimepiride 4 mg tablet 2 mg PO DAILY DIABETES 01/24/22 amitriptyline 50 mg tablet 50 mg PO QHS DEPRESSION 02/17/23 empagliflozin 10 mg tablet (Jardiance) 10 mg PO DAILY DIABETES 02/17/23 ketotifen fumarate 0.025 % (0.035 %) eye drops (Alaway) 1 drp ophthalmic (eye) BID PRN ITCHING/ALLERGIES 02/17/23 levothyroxine 100 mcg tablet (Synthroid) 100 mcg PO DAILY THYROID 12/14/23 rivaroxaban 20 mg tablet (Xarelto) 20 mg PO DAILY BLOOD THINNER 12/14/23 simvastatin 20 mg tablet 20 mg PO QHS CHOLESTEROL 12/14/23 furosemide 40 mg tablet (Lasix) 40 mg PO DAILY water pill #60 tabs 12/17/23 metoprolol succinate 50 mg tablet,extended release 24 hr 50 mg PO DAILY heart/BP #60 tabs 12/17/23 losartan 100 mg tablet 100 mg PO DAILY blood pressure 03/25/24 potassium chloride 20 mEq tablet,extended release(part/cryst) 40 meq (2 x 20 mEq) PO DAILYCM 30 days #60 tabs 03/29/24 Hospital Course Operations None Procedures EKG, Transthoracic echo and - (Chest x-ray x 2, CT abdomen pelvis, CT L-spine and T-spine, chest ultrasound) Summary of Care Provided Minutes Spent on Discharge: 35 Hospital Course: Patient is an 83-year-old female who presented [facility] ED on 03/25/2024 with worsening shortness of breath and hypoxia. Hospital course as noted below. Patient discharged home in stable condition on 03/29. 1. Acute hypoxic respiratory failure suspected secondary to recurrent CHF exacerbation ? Cardiology followed. Presented with worsening shortness of breath and hypoxia. Not on home oxygen. Required high flow nasal cannula in ED for adequate oxygen saturations. Chest x-ray showed vascular congestion with bilateral pleural effusions and cardiomegaly and CT imaging noted below also showed large bilateral pleural effusions. BNP mildly elevated from baseline. Notably had similar presentation in December, had good improvement with Lasix drip and was weaned off submental oxygen prior to discharge. Echo in December showed EF 55%, mild pulmonary hypertension, severe LA and RA dilation, otherwise no abnormalities. Repeat limited echo on 03/26 showed EF 45 to 50% with akinetic cardiac apex. Per cardiology, echo findings may be related to monoclonal gammopathy with possible multiple myeloma as noted below. Started on IV Lasix drip on admission with good urine output and some improvement in oxygenation status. However, chest x-ray on 03/27 appeared similar to on admission with continued bilateral pleural effusions. Radiology attempted diagnostic and therapeutic thoracentesis on 03/28 but there was not enough fluid available for thoracentesis. Oxygen requirements much improved during hospitalization. Weaned off supplemental oxygen at rest; did require 2 L nasal cannula with exertion on discharge. Continue p.o. Lasix, SGLT2 inhibitor, losartan and beta-rosaura on discharge. 2. Acute on chronic back pain with debility ? PT/OT/case management followed. Unclear etiology for worsening back pain over the past few days. CT T-spine and L-spine on admission showed known chronic compression fractures with no significant worsening from previous. Pain improved, worsening pain may in part have been due to increased pressure from bilateral pleural effusions. Treated with scheduled Tylenol, p.o. oxycodone and IV Dilaudid while inpatient. Okay to treat with only Tylenol as needed on discharge. 3. 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 Follows with Dr. Baker. 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 Plan is for bone marrow biopsy and further imaging evaluation soon to determine if patient may have conversion to multiple myeloma. Hemoglobin stable at baseline on admission. No inpatient needs, will need close outpatient follow-up after discharge. 4. Mild acute sigmoid diverticulitis ? Noted on CT abdomen pelvis on admission. Patient with only mild abdominal pain and no significant change in bowel movements recently. Unclear if patient has had episodes of diverticulitis in the past. Patient tolerating clear liquid diet without issue, advanced to regular diet on 03/27. Treated with IV Zosyn while inpatient, no need for further antibiotics on discharge. 5. Hypokalemia ? Potassium 2.9 on admit. Has history of mild chronic hypokalemia and is on 20 mEq of potassium daily. Aggressively repleted while inpatient. Continue home potassium supplement on discharge. 6. Hyponatremia ? Sodium 132 on admit. Suspect due to volume overload from heart failure exacerbation. Remained stable around 132-135 during hospitalization. 7. CKD stage III ? Creatinine 1.37 on admit, at baseline. Remained stable at baseline during hospitalization. Chronic medical conditions: ? Obesity: BMI 30 on admit. Complicated hospital course, care and prognosis. ? History of CAD s/p stenting, hypertension, hyperlipidemia: Blood pressure stable on admit. Continue home Toprol, losartan and amlodipine. Continue home statin and Xarelto. ? Paroxysmal A-fib on Eliquis, history of AV isael ablation s/p pacemaker placement: Has been in normal sinus rhythm since admit. Continue home Xarelto and Toprol. ? GERD: Continue home PPI. ? Type 2 diabetes mellitus: Treated with sliding scale insulin while inpatient. Okay to resume home glimepiride and Jardiance on discharge. Total clinical time spent by myself addressing the patient's medical issues, reviewing all the data, and collaborating with patient's care team: 35 minutes. Physical Exam Const alert and oriented x3 Constitutional Narrative: Elderly female, chronically ill-appearing but energy level improved from admission, back pain improved and patient breathing comfortably on room air at rest, in no acute distress. General Appearance: cooperative HEENT normocephalic, head/scalp atraumatic, hearing grossly normal bilaterally and nasal mucous membranes and turbinates normal Eyes PERRL, EOMs intact bilaterally and conjunctivae normal Neck full ROM Chest inspection of chest normal Resp Resp Narrative: Breathing comfortably on room air at rest, significantly improved from admission. Mildly decreased breath sounds at lung bases on discharge, otherwise good air movement throughout with no wheezing or crackles noted. Cardio regular rate, regular rhythm, no murmurs and peripheral pulses 2+ throughout GI normal to inspection, nondistended, normoactive bowel sounds, soft to palpation, non-tender and non-distended Back/Spine Back/Spine Narrative: Mild tenderness to palpation in lower thoracic spine. Improved from admission, much less pain with movement than on admission. Stable. Extremity normal to inspection Extremity Narrative: Trace lower extremity edema, improved. Skin no rashes or lesions noted Neuro moves all extremities and no focal motor deficits Speech: speech normal Psych mental status grossly normal Weight / BMI Weight Weight: 85.4 kg Body Mass Index (BMI) 28.6 ABG / Lab / Microbiology Data 03/26/24 04:35 03/29/24 05:36 Laboratory: Laboratory Results - last 24 hr 03/29/24 05:36: Sodium 135 L, Potassium 3.2 L, Chloride 96 L, Carbon Dioxide 32.0, Anion Gap 7, BUN 16, Creatinine 1.21 H, Estim Creat Clear Calc 39.61, Est GFR (MDRD) Af Amer 54 L, Est GFR (MDRD) Non-Af 45 L, BUN/Creatinine Ratio 13.2, Glucose 106, Calcium 9.2 Radiography Diagnostic Testing: Radiology Impression Chest Ultrasound 03/28/24 11:48 IMPRESSION: Not enough fluid for safe thoracentesis. Electronically Signed: Bello Lozoya MD at 15:18 EDT , D/C Instructions Discharge Diet: 8 Cup Fluid Restriction and 4000 mg Sodium Diet Meaningful Use Info Meaningful Use Meaningful Use Diagnoses (Choose all that apply): CHF CHF LISANDRA/ARB ordered at discharge?: Yes Documented LVEF (%): 45 Ischemic Stroke Statin Dosing Therapy Reference: STATIN DOSE THERAPY REFERENCE: * Patients > 75 years receive moderate or high dose statin therapy. * Patients 75 years or YOUNGER should receive HIGH intensity statin dose unless contraindicated. You will be required to document reason for non-treatment if statin daily dose does not meet guidelines. HIGH DOSE STATIN THERAPY DAILY Atorvastatin > than or = to 40 mg Rosuvastatin > than or = to 20 mg Amlodipine + Atorvastatin > than or = to 2.5/40 mg Ezetimibe + Simvastatin 10/80 mg Simvastatin 80mg Discharge Plan Admission Admit Date/Time: 03/25/24 13:16 Primary Reason for Your Visit: Shortness of breath Attending Provider: Juice Elizabeth Primary Care Provider: Matt Rocha Consulting Providers: Terrance Zuniga Instructions Additional Instructions / Restrictions: Please take 40 mEq of potassium daily (you were taking 20) going forward for low potassium. Stop taking your amlodipine. Otherwise continue your other home medications as normal, including Lasix 40 mg once daily. Follow-up with the heart doctor in 1 to 2 weeks. Discharge Orders/Prescriptions Prescriptions: New potassium chloride 20 mEq Tablet,Er Particles/Crystals 40 meq PO DAILYCM 30 Days Qty: 60 2RF Continued glimepiride 4 mg tablet 2 mg PO DAILY amitriptyline 50 mg tablet 50 mg PO QHS Jardiance 10 mg tablet 10 mg PO DAILY ketotifen fumarate [Alaway] 0.025 % (0.035 %) drops 1 drp ophthalmic (eye) BID PRN (Reason: ITCHING/ALLERGIES ) omeprazole 40 MG capsule 40 mg PO DAILY buspirone 15 MG tablet 15 mg PO BID nitroglycerin 0.4 MG tablet 0.4 mg SUBLINGUAL Q5M PRN (Reason: CHEST PAIN ) levothyroxine [Synthroid] 100 mcg tablet 100 mcg PO DAILY simvastatin 20 mg tablet 20 mg PO QHS Xarelto 20 mg tablet 20 mg PO DAILY metoprolol succinate 50 mg Tablet Extended Release 24 Hr 50 mg PO DAILY Qty: 60 0RF furosemide [Lasix] 40 mg tablet 40 mg PO DAILY Qty: 60 0RF losartan 100 mg tablet 100 mg PO DAILY Discontinued acetaminophen 500 mg capsule 1,000 mg PO Q4H PRN (Reason: PAIN ) amlodipine 10 mg tablet 10 mg PO DAILY potassium chloride 20 mEq Tablet,Er Particles/Crystals 20 meq PO DAILY Qty: 30 0RF oxycodone-acetaminophen [Percocet] 5-325 mg tablet 1 tab PO Q6H PRN (Reason: pain) 3 Days Qty: 12 0RF Referrals / Follow Up: Matt Rocha MD [Primary Care Provider] - 04/06/24 11:30 am (Appointment is with Yovana Jaime N.P.) Disposition Disposition (needs filled in before D/C Order can be placed): Home Health Service Charges/Coding Visit Charges Inpatient E&M: 39286 Disch Hosp >30min
--- NOTE | 2024-03-29 11:33 | PCM.HOSP.N ---
Hospitalist Note I have reviewed the oxygen testing, and this patient qualifies for the home equipment and portability. The patient is mobile in the home and the community.
--- NOTE | 2024-03-29 12:00 | CASEMGMT ---
Addendum entered by Janet Farah 03/29/24 13:39: NIYA OJEDA received call back from [facility], they are able to accept patient with planned start of care for tomorrow. NIYA OJEDA in to update patient and portable tank provided from [facility]. Patient and family had no further questions or concerns. Original Note: Patient has order for discharge. Patient requires home oxygen with ambulation. Script received. NIYA OJEDA in to discuss needs at discharge. Reviewed progress with therapy and discussed HHC at discharge. Patient agreeable to [facility] and prefers [facility], declines list of C agencies. Patient prefers [facility] for home oxygen. NIYA OJEDA sent referral to [facility] via [employer]. Referral made to [facility] awaiting acceptance.
--- NOTE | 2024-03-29 12:02 | PHA.DC_ITS ---
Pharmacy [facility] has performed discharge medication reconciliation and counseling for this patient. The patient's discharge medication list was reviewed for discrepancies and discrepancies were resolved. The patient was counseled on the following discharge medications and changes in medications for homegoing were reviewed. The Reason for Use, instructions for use, and potential side effects were reviewed for all new medications. The patient's questions regarding all of their medications were answered. 1. Potassium chloride 40 mEq daily The patient was able to verbally demonstrate an understanding of their discharge medications. Medications at Discharge Home Medications buspirone 15 mg tablet 15 mg PO BID ANXIETY 06/02/13 omeprazole 40 mg capsule,delayed release 40 mg PO DAILY ACID REFLUX 06/02/13 nitroglycerin 0.4 mg sublingual tablet 0.4 mg sublingual Q5M PRN CHEST PAIN 04/21/15 glimepiride 4 mg tablet 2 mg PO DAILY DIABETES 01/24/22 amitriptyline 50 mg tablet 50 mg PO QHS DEPRESSION 02/17/23 empagliflozin 10 mg tablet (Jardiance) 10 mg PO DAILY DIABETES 02/17/23 ketotifen fumarate 0.025 % (0.035 %) eye drops (Alaway) 1 drp ophthalmic (eye) BID PRN ITCHING/ALLERGIES 02/17/23 levothyroxine 100 mcg tablet (Synthroid) 100 mcg PO DAILY THYROID 12/14/23 rivaroxaban 20 mg tablet (Xarelto) 20 mg PO DAILY BLOOD THINNER 12/14/23 simvastatin 20 mg tablet 20 mg PO QHS CHOLESTEROL 12/14/23 furosemide 40 mg tablet (Lasix) 40 mg PO DAILY water pill #60 tabs 12/17/23 metoprolol succinate 50 mg tablet,extended release 24 hr 50 mg PO DAILY heart/BP #60 tabs 12/17/23 losartan 100 mg tablet 100 mg PO DAILY blood pressure 03/25/24 potassium chloride 20 mEq tablet,extended release(part/cryst) 40 meq (2 x 20 mEq) PO DAILYCM 30 days #60 tabs 03/29/24
== END 2024-03-29 14:00 | disposition home health service (06) | DRG 291 ==
LOC: ED 12:01 → PCU 14:27
PROVIDERS: Internal Medicine; Nurse Practitioner Acute Care; Admitting Provider Hospitalist; Emergency Provider Emergency Medicine; PCP Family Medicine; Visit Provider Hospitalist
DX: I13.0 Hypertensive heart and chronic kidney disease with heart failure and stage 1 through stage 4 chronic kidney disease, or unspecified chronic kidney disease (principal); J96.01 Acute respiratory failure with hypoxia; I50.33 Acute on chronic diastolic (congestive) heart failure; I48.11 Longstanding persistent atrial fibrillation; K57.92 Diverticulitis of intestine, part unspecified, without perforation or abscess without bleeding; E87.1 Hypo-osmolality and hyponatremia; C90.00 Multiple myeloma not having achieved remission; I27.21 Secondary pulmonary arterial hypertension; E11.22 Type 2 diabetes mellitus with diabetic chronic kidney disease; N18.30 Chronic kidney disease, stage 3 unspecified; E03.9 Hypothyroidism, unspecified; E66.9 Obesity, unspecified; I49.5 Sick sinus syndrome; M48.04 Spinal stenosis, thoracic region; K21.9 Gastro-esophageal reflux disease without esophagitis; D47.2 Monoclonal gammopathy; E78.5 Hyperlipidemia, unspecified; I25.10 Atherosclerotic heart disease of native coronary artery without angina pectoris; I25.2 Old myocardial infarction; E87.6 Hypokalemia; M48.54XD Collapsed vertebra, not elsewhere classified, thoracic region, subsequent encounter for fracture with routine healing; M48.56XD Collapsed vertebra, not elsewhere classified, lumbar region, subsequent encounter for fracture with routine healing; R53.81 Other malaise; G89.29 Other chronic pain; Z23 Encounter for immunization; Z68.30 Body mass index [BMI] 30.0-30.9, adult; Z79.01 Long term (current) use of anticoagulants; Z79.891 Long term (current) use of opiate analgesic; Z79.84 Long term (current) use of oral hypoglycemic drugs; Z79.890 Hormone replacement therapy; Z79.899 Other long term (current) drug therapy; Z87.891 Personal history of nicotine dependence; Z95.0 Presence of cardiac pacemaker; Z95.5 Presence of coronary angioplasty implant and graft
CPT/HCPCS: 36415; 36600; 51702; 71045; 72128; 72131; 74176; 76604; 80048; 80053; 82803; 83615; 83735; 83880; 84100; 84484; 85025; 85027; 85610; 85730; 88305; 88311; 90662; 93005; 93308; 94660; 94668; 97110; 97116; 97162; 97166; 97530; 97802; 99285; J7040; Q9957; A4216; C8924; J1940; J2405

== ENCOUNTER → 2024-04-05 | Outpatient (CLI) | payer MEDICARE, BC, SELFPAY ==
--- NOTE | 2024-04-05 10:30 | RAD_ITS ---
STUDY: X-RAY CHEST REASON FOR EXAM: Female, 83 years old. Dyspnea on exertion. TECHNIQUE: Frontal and lateral views of the chest. COMPARISON: March 27, 2024 FINDINGS: Interval resolution of bilateral pleural effusions and compression atelectasis. There is no demonstrated pleural abnormality. Stable cardiomegaly with dual lead cardiac pacer. Normal mediastinum and radha. Normal visualized pulmonary arteries. Aortic tortuosity with calcification is unchanged. Thoracic osteopenia with anterior wedge compression deformity of a mid to lower thoracic vertebral body with kyphoplasty unchanged. Stable anterior wedge compression deformity of the T12 vertebral body. No abnormality of the visualized soft tissue structures of the upper abdomen. RAD/Chest PA and Lateral IMPRESSION: Cardiomegaly with radiographic improvement with resolution of pleural effusions. No emergent finding. Electronically Signed: Cortes Casillas MD at 11:08 EDT ,
[2024-04-05 12:30] LABS: Hematocrit 42.5 % (37-47); Hemoglobin 12.8 g/dL (12.0-15.0); Mean Corp Hgb Conc 30.1 g/dL (32-36); Mean Corpuscular Hgb 26.4 pg (27.0-32.0); Mean Corpuscular Volume 87.6 fL (81-99); Mean Platelet Vol. 10.3 fl (6.2-12.0); Platelet Count 412 K/mm3 (150-450); RBC Distribution Width CV 16.3 % (11.6-14.6); Red Blood Count 4.85 M/mm3 (4.2-5.4); White Blood Count 6.1 K/mm3 (4.4-11.0)
[2024-04-05 12:32] LABS: BNP,B-Type NATRIURETIC PEPTIDE 433.7 pg/mL (0-100)
[2024-04-05 12:39] LABS: ALB/GLOB Ratio 0.6 RATIO (0.9-2.4); AST(SGOT) 23 U/L (15-37); Alanine Aminotransfer ALT/SGPT 12 U/L (13-56); Albumin, Serum 3.4 g/dL (3.2-5.0); Alkaline Phosphatase 160 U/L (45-117); Anion Gap 5 (5-15); BUN 13 mg/dL (7-18); Calcium,Total 10.2 mg/dL (8.5-10.1); Chloride 103 mmol/L (98-107); EST Glomerular Filtration Rate 41 mL/min (>60); Est Glom Filt Rate - Afr Amer 50 mL/min (>60); Globulin 5.8 g/dL (2.2-4.2); Glucose 103 mg/dL (74-106); Protein, Total 9.2 g/dL (6.4-8.2); Sodium Level 134 mmol/L (136-145)
== END | disposition home or self-care (01) ==
LOC: RAD 10:19
PROVIDERS: Internal Medicine Cardiovascular Disease; PCP Family Medicine; Referring Provider Physician Assistant Medical; Visit Provider Physician Assistant Medical
DX: R06.00 Dyspnea, unspecified (principal); I50.33 Acute on chronic diastolic (congestive) heart failure
CPT/HCPCS: 36415; 71046; 80053; 83880; 85027

== ENCOUNTER 2024-04-11 11:25 | Day surgery (SDC) | payer MEDICARE, BC, SELFPAY ==
[2024-04-08 10:24] VITALS: BMI 27.9
[2024-04-11 11:30] LABS: Color, Urine Yellow (Yellow); Glucose, Dipstick 250 mg/dl (Normal); Ketone-Dipstick Negative (Negative); Leukocyte Esterase-Dipstick 25 /ul (Negative); Nitrite-Dipstick Negative (Negative); Occult Blood-Urine Negative /ul (Negative); Protein-Dipstick 30 mg/dl (Negative); Urine Bilirubin Dipstick Negative (Negative); Urine Clarity Clear (Clear); Urine Urobilinogen Normal (Normal)
[2024-04-12 09:51] LABS: INR Fingerstick 1.7; Prothrombin Time Fingerstick 17.8 SEC (11.7-14.9)
--- NOTE | 2024-04-12 13:30 | CL.IE_ITS ---
Patient: ANTONIO GUPTA Study Date: 04/11/2024 Performing: Vinny Root MD : 1940 Age: 83 Gender: female PROCEDURES PERFORMED [id number])BATTERY REMOVAL+REPLACEMENT PACER-DUAL LEAD INDICATIONS End-of-life replacement indicator PROCEDURE DETAILS The patient was brought to the Catheterization Lab in the postabsorptive nonsedated state. Informed consent was obtained prior to the procedure. Local anesthetic was given subcutaneously to the left subclavian region with Lidocaine 2%. Incision was made to the left subclavicular area. PPM generator was removed. PPM generator was attached to the lead(s) and inserted into the pocket. PPM generator was then interrogated by the cad cam programmer. PPM ventricular lead (existing) was checked and tested. PPM atrial lead (existing) was checked and tested. Device pocket was irrigated with antibiotic. Subcutaneous closure was completed with 3-0 Vicryl. Skin closure was completed with 4-0 Vicryl. The patient tolerated the procedure well. Estimated Blood Loss: 5 ml's IMPLANTED / EX-PLANTED DEVICES IMPLANTED DEVICE(S): PPM Generator - Blood Donor Recruiter Supervisor: [employer], Model # Assurity MRI , Serial # [id number] DEVICE PARAMETERS DEVICE PARAMETERS: Mode- DOO Lower rate- 70 Upper rate- 120 CONCLUSIONS / RECOMMENDATIONS Device Conclusions: Successful implantation of a dual chamber pacemaker battery change and replacement Device Recommendations: Follow up with Primary Care Physician PROCEDURE MEDICATIONS Fentanyl 25 mcg IV Versed 1 mg IV Fentanyl 25 mcg IV Oxygen: 2 L/min via nasal cannula Antibiotic given in appropriate timeframe. Ancef 2 Gm IV @ 04/11/2024 13:12:04 Signed By Vinny Root MD On 04/12/2024 13:29:24 Signed By Vinny Root MD On 04/11/2024 13:51:27 Vinny Root MD
== END 2024-04-11 15:05 | disposition home or self-care (01) ==
PROVIDERS: Internal Medicine Cardiovascular Disease; PCP Family Medicine; Referring Provider Internal Medicine Cardiovascular Disease; Visit Provider Internal Medicine Cardiovascular Disease
DX: Z45.018 Encounter for adjustment and management of other part of cardiac pacemaker (principal); I27.21 Secondary pulmonary arterial hypertension; I48.11 Longstanding persistent atrial fibrillation; I48.0 Paroxysmal atrial fibrillation; I48.92 Unspecified atrial flutter; I25.10 Atherosclerotic heart disease of native coronary artery without angina pectoris; I10 Essential (primary) hypertension; E78.5 Hyperlipidemia, unspecified; F41.9 Anxiety disorder, unspecified; D50.9 Iron deficiency anemia, unspecified; I25.2 Old myocardial infarction; Z79.899 Other long term (current) drug therapy; Z79.84 Long term (current) use of oral hypoglycemic drugs; Z87.891 Personal history of nicotine dependence; Z79.01 Long term (current) use of anticoagulants; Z95.5 Presence of coronary angioplasty implant and graft
CPT/HCPCS: 33228; 36416; 81002; 85610; 99152; 99153; J7040; J7050

== ENCOUNTER 2025-02-08 16:53 | Inpatient (IN) | payer MEDICARE, BC, SELFPAY ==
[2025-02-08] VITALS (9 sets, daily range): BP systolic 140–164; BP diastolic 64–123; PULSE 80–89; RESP 18–24; TEMP 36.4–36.8; O2SAT 84–95; BMI 29.5; BMI 28.8
--- NOTE | 2025-02-08 17:28 | EDS_ITS ---
HPI History of Present Illness Chief Complaint: General Illness [facility] Medical History Coronary artery disease Iron deficiency anemia History of non-ST elevation myocardial infarction (NSTEMI) (2013) Longstanding persistent atrial fibrillation Essential (primary) hypertension Anxiety Hypothyroidism Hyperlipidemia Secondary pulmonary arterial hypertension Atherosclerosis of coronary artery of [place] heart without angina pectoris Paroxysmal atrial fibrillation Paroxysmal atrial flutter Sick sinus syndrome Home Medications ?Medication ?Instructions ?Recorded ?Last Taken ?Type buspirone 15 mg tablet 15 mg PO BID ANXIETY 3 Unknown History omeprazole 40 mg capsule,delayed 40 mg PO DAILY ACID R EFLUX 06/02/13 04/11/24 History release nitroglycerin 0.4 mg sublingual 0.4 mg sublingual Q5M PRN CHEST 04/21/15 Unknown History tablet PAIN glimepiride 4 mg tablet 2 mg PO DAILY DIABETES 01/2404/08/24 History amitriptyline 50 mg tablet 50 mg PO QHS DEPRESSION 03/04 Unknown History empagliflozin 10 mg tablet 10 mg PO DAILY DIABETES 03/04 Unknown History (Jardiance) ketotifen fumarate 0.025 % (0.035 1 drp ophthalmic (ey e) BID PRN 02/17/23 Unknown History %) eye drops ([place]) ITCHING/ALLERGIES levothyroxine 100 mcg tablet 100 mcg PO DAILY THYROID 12/14/23 Unknown History (Synthroid) furosemide 40 mg tablet (Lasix) 40 mg PO DAILY water p ill #60 tabs 12/17/23 Unknown Rx rivaroxaban 20 mg tablet (Xarelto) 20 mg PO QPM #90 ta bs 10/06/24 Unknown Rx losartan 100 mg tablet 100 mg PO DAILY blood pressu re #90 11/18/24 Unknown Rx tabs potassium chloride 20 mEq 40 meq (2 x 20 mEq) PO QDAY #90 11/21/24 Unknown Rx tablet,extended release(part/cryst) tabs metoprolol succinate 50 mg 50 mg PO DAILY heart/BP #90 tabs 11/23/24 Unknown Rx tablet,extended release 24 hr simvastatin 20 mg tablet 20 mg PO QHS CHOLESTEROL #9 0 tabs 12/22/24 Unknown Rx amlodipine 10 mg tablet 10 mg PO DAILY 02/08/25 Unkn own History ciprofloxacin HCl 500 mg tablet 500 mg PO BID 02/08/25 Unknown History ferrous sulfate 325 mg (65 mg 65 mg PO DAILY 02/08/25 Unknown History iron) tablet (FeroSul) oxycodone-acetaminophen 5 mg-325 1 tab PO TID PRN PRN pain 02/08/25 Unknown History mg tablet Allergy/AdvReac Type Severity Reaction Status Date / Time poison fany extract (Poison Allergy Rash Verified 02/08/25 16:56 Fany Extract) Sulfa (Sulfonamide Allergy Hives Verified 02/08/25 16:56 Antibiotics) Family History Mother Cancer Father Cancer Brother CAD (coronary artery disease) Sister CAD (coronary artery disease) Surgical History S/P kyphoplasty History of tubal ligation History of appendectomy History of hysterectomy History of left heart catheterization (10/09/13) History of coronary artery stent placement (09/2010) Hx of atrioventricular node ablation (03/31/16) Presence of cardiac pacemaker (04/26/15) Social History household members: spouse Smoking Status: Former smoker how long ago did patient quit smokin's alcohol intake: never substance use type: does not use caffeine: Yes Type: coffee Number of servings: 3 EXAM Physical Exam Const Vital Signs: 02/08/25 16:54 02/08/25 17:12 02/08/25 17:13 Temperature 97.5 F L Temperature Source Oral Pulse Rate 80 Respiratory Rate 22 H Blood Pressure 157/64 H Blood Pressure Mean 95 Pulse Ox 93 84 94 Oxygen Delivery Method Room Air Room Air Nasal Cannula Oxygen Flow Rate (L/min) 2 02/08/25 19:00 02/08/25 19:17 Temperature Temperature Source Pulse Rate 80 Respiratory Rate 24 H 22 H Blood Pressure 156/67 H Blood Pressure Mean 96 Pulse Ox 90 91 Oxygen Delivery Method Room Air Oxygen Flow Rate (L/min) MDM MDM MDM Narrative Medical decision making narrative: HISTORY OF PRESENT ILLNESS: Chief complaint: Fatigue, dysuria, shortness of breath 84-year-old female history of A-fib, sick sinus syndrome status post pacemaker, on chronic anticoagulation in the form of Xarelto, acute hypoxemic respiratory failure, heart failure, CAD status post stent, pulmonary artery hypertension. The patient states she currently does not wear oxygen at home despite her reported history of acute hypoxemic respiratory failure. States she was prescribed oxygen sometime ago however she did not use it so she returned it. Patient notes several months of worsening dyspnea on exertion. She does note a dry cough. Denies fever. Denies chest pain. She notes more recently she has been feeling very fatigued. States she feels like she cannot do anything physically. She states she was recently diagnosed with a UTI. Notes she started her first dose of ciprofloxacin last night. Denies vomiting or diarrhea. Denies any bleeding diathesis. REVIEW OF SYSTEMS: Pertinent positives: Shortness of breath, dysuria, fatigue Pertinent negatives: Chest pain, syncope PHYSICAL EXAM: Nursing triage notes reviewed, Vital signs reviewed Constitutional: please see mdm HENT: MMM Eyes: Pupils equal round and reactive to light, Extraocular muscles intact Neck: No stridor, no JVD, full neck ROM Lungs: Clear to auscultation, No wheezing or rales. No increased work of breathing, no conversational dyspnea, no accessory muscle use, no nasal flaring. No respiratory distress noted Heart: Regular rate and rhythm, No murmurs, No rubs and No gallops, 2+ distal pulses (radial, femoral, posterior tibial) in all extremities Abdomen: Soft, there is no tenderness, rigidity, rebound or guarding, no obvious peritoneal signs, no palpable pulsatile abdominal masses, no auscultated abdominal bruit : No CVAT Extremities: No edema Neuro: No new focal neurological deficits, cranial nerves II through XII intact, 5/5 strength in all present extremities. Intact sensation to light touch in all present extremities, 2+ reflexes bilateral patella tendons. Skin: No rash or lesions noted MEDICAL DECISION MAKING: Chief Complaint: please see HPI External records reviewed: Reviewed laboratory studies. BNP from 04/05/2024 was 433.7 Reviewed EKG from March 2024 Factors affecting care: As per HPI Social determinants of health: Elderly History obtained from others: Family Consults: Internal medicine (Dr. Elizabeth ) [facility] Narrative: The patient was initially tachypneic saturating 84% on room air requiring a new 2 L oxygen requirement. She had some slight increased work of breathing, conversational dyspnea but was not in severe respiratory distress and did not require noninvasive or invasive ventilatory support initially I considered the following differential diagnosis: CHF, ACS, arrhythmia, anemia, electrolyte disturbance, UTI, I obtained a broad lab and imaging workup to further determine if the patient was suffering from a life-threatening etiology. I obtained a broad lab and imaging workup to further elucidate etiology of the patient's complaint. Given hypoxia and shortness of breath I did consider pulm embolism as a potential etiology of the patient has a low risk Wells score and is on anticoagulation currently has not missed any doses. Therefore over low suspicion for PE. ALL IMAGES (IF OBTAINED) HAVE BEEN PERSONALLY REVIEWED AND INTERPRETED BY MYSELF. EKG with ventricular paced rhythm, left axis deviation, prolonged QTc interval at 552, no obvious new ischemic changes, similar morphology to EKG reviewed from 2023 CBC with no leukocytosis, noted anemia which is worse than prior however similar to baseline studies BMP without significant [place] normalities, noted metabolic acidosis with a bicarb of 18.9, no sign of endorgan hypoperfusion with normal anion gap, noted baseline CKD CMP shows slight elevation in liver enzymes consistent with prior study Initial troponin negative BNP elevated consistent with volume overload and heart failure The patient's chest x-ray was read and reviewed personally by myself shows cardiomegaly and pulmonary venous congestion consistent with likely CHF The synthesis of the patient's history, physical exam, labs images suggest acute heart failure exacerbation. The patient and/or family, caregivers express understanding. The patient and/or family, caregivers agrees with the plan. Shared decision making: I will have a discussion with the patient and or visitors regarding risk/benefits of further testing or admission. They will be made aware of of the risk/benefits inherent in this decision they will be given the opportunity to voice understanding. Total critical care time today provided was at least 0 minutes. This excludes separately billable procedures. Critical care time (if documented) is secondary to the patient having high probability of clinically significant/life threatening deterioration in the patient's condition which required my urgent intervention. Impression: 1. Hypoxia 2. CHF exacerbation 3. History of CAD Dispo: Admit to PCU This note was generated with Dolphin dictation software. It may contain incorrect words, spelling, and punctuation that were not noted in review of the chart tasha or to signing. Lab Data Labs: Laboratory Results - last 24 hr 02/08/25 02/08/25 02/08/25 17:16 17:52 19:58 WBC 6.7 RBC 3.80 L Hgb 8.8 L Hct 30.0 L MCV 78.9 L MCH 23.2 L MCHC 29.3 L RDW Std Deviation 53.7 H RDW Coeff of Jose Alberto 18.7 H Plt Count 237 MPV 10.8 Immature Gran % (Auto) 0.700 Neut % (Auto) 63.8 Lymph % (Auto) 18.5 L [place] % (Auto) 13.6 H Eos % (Auto) 2.8 Baso % (Auto) 0.6 Absolute Neuts (auto) 4.3 Absolute Lymphs (auto) 1.24 Nucleated RBC % 0.6 Sodium 135 Potassium 4.1 Chloride 102 Carbon Dioxide 18.9 L Anion Gap 15 BUN 21 H Creatinine 1.42 H Estim Creat Clear Calc 33.68 L Est GFR (MDRD) Non-Af 36 L BUN/Creatinine Ratio 14.4 Glucose 93 Hemoglobin A1c 6.7 H Lactic Acid 1.3 Calcium 9.0 Magnesium 2.2 Total Bilirubin 0.56 AST 35 H ALT 10 Alkaline Phosphatase 140 H Troponin T High Sens 26 H Troponin T Hi Sens 2 Hr 28 H NT pro BNP II 1833 H Total Protein 8.5 H Albumin 3.7 Globulin 4.8 H Albumin/Globulin Ratio 0.8 L TSH 3.080 Radiography Diagnostic Testing: Clinical Impression(s) from Imaging Studies Chest X-Ray 02/08/25 17:41 IMPRESSION: Mild pulmonary edema. No focal consolidations. Trace left base effusion. Moderate cardiomegaly. Reading Location: [facility] Discharge Plan Disposition Disposition: Acute Care Hospital [facility] Discharge Date/Time: 02/08/25 21:56
--- NOTE | 2025-02-08 17:41 | RAD_ITS ---
PROCEDURE: CHEST 1 VIEW (PORTABLE) 02/08/2025 REASON FOR EXAM: SHORTNESS OF BREATH TECHNIQUE: Frontal view of the chest. COMPARISON: 04/05/24 FINDINGS: Mild pulmonary edema. No focal consolidations. Trace left base effusion. No pneumothorax. Moderate cardiomegaly. Calcified aortic arch. No acute fractures. Left chest pacer. RAD/Chest 1 View (Portable) IMPRESSION: Mild pulmonary edema. No focal consolidations. Trace left base effusion. Moderate cardiomegaly. Reading Location: [facility]
--- NOTE | 2025-02-08 17:43 | EKG12_ITS ---
Test Reason : SOB Blood Pressure : */* mmHG Vent. Rate : 81 BPM Atrial Rate : 75 BPM P-R Int : * ms QRS Dur : 174 ms QT Int : 476 ms P-R-T Axes : * -82 98 degrees QTcB Int : 552 ms Ventricular-paced rhythm Abnormal ECG Confirmed by KYUNG MORRISON, DICKSON ([id number]), industrial editor MOISES LEW ([id number]) on 02/09/2025 8:41:43 AM Referred By: Confirmed By: DICKSON TRACEY MD
[2025-02-08] MEDS: 0.9% Normal Saline (500mL Bag) 500 ML 1000 ML IV (17:50)
[2025-02-08 18:17] LABS: Hematocrit 30.0 % (37-47); Hemoglobin 8.8 g/dL (12.0-15.0); Immature Granulocytes Count 0.050 X10^3/uL (0.0-0.0); Mean Corp Hgb Conc 29.3 g/dL (32-36); Mean Corpuscular Volume 78.9 fL (81-99); Mean Platelet Vol. 10.8 fl (6.2-12.0); NRBC Flagged by Analyzer 0.6 % (0-5); Platelet Count 237 K/mm3 (150-450); RBC Distribution Width CV 18.7 % (11.6-14.6); RBC Distribution Width SD 53.7 fl (35.1-43.9); Red Blood Count 3.80 M/mm3 (4.2-5.4); White Blood Count 6.7 K/mm3 (4.4-11.0)
[2025-02-08 18:32] LABS: Pro- Brain NATRIURETIC PEPTIDE 1833 pg/mL (<=1800); Troponin T High Sensitivity 26 ng/L (<=14)
[2025-02-08 18:39] LABS: AST(SGOT) 35 U/L (<=31); Alanine Aminotransfer ALT/SGPT 10 U/L (<=34); Albumin, Serum 3.7 g/dL (3.4-4.8); Alkaline Phosphatase 140 U/L (35-104); Anion Gap 15 (5-15); BUN 21 mg/dL (4-19); BUN/Creat Ratio 14.4 RATIO (10-20); Calcium,Total 9.0 mg/dL (7.6-11.0); Carbon Dioxide 18.9 mmol/L (21.0-32.0); Chloride 102 mmol/L (98-108); Estimated Creatinine Clearance 33.68 ml/min (50-250); Globulin 4.8 g/dL (2.2-4.2); Glucose 93 mg/dL (70-99); Potassium 4.1 mmol/L (3.3-5.1)
--- NOTE | 2025-02-08 20:18 | PCM.HP.STD ---
[facility] - General General Date of Admission: 02/08/25 Date of Service: 02/08/25 Chief Complaint: SOB. [facility] Narrative ANTONIO YOUNG, is a 84 F with a past medical history of essential hypertension; on amlodipine, losartan, metoprolol and furosemide, hyperlipidemia; on simvastatin, hypothyroidism; on levothyroxine, overweight; with BMI of 29.6 this admission, DM-2; of unknown control on glimepiride and empagliflozin, paroxysmal atrial fibrillation; s/p AV isael ablation on apixaban, CAD; s/p RCA and LAD stents (2010) on as needed SL NTG, history of sick sinus syndrome; s/p PPM (2014), chronic mild systolic CHF; with LVEF of ~45% with 2+ mitral valve insufficiency and 1+ aortic valve insufficiency RSVP at 50 mmHg, secondary pulmonary arterial hypertension, history of multiple myeloma; followed by Dr. Baker, chronic iron deficiency anemia; on ferrous sulfate, depression with anxiety; on amitriptyline and buspirone twice daily, GERD; on omeprazole, osteoporosis; with history of compression fracture of thoracic vertebrae and OA; on oxycodone-acetaminophen 3 times daily as needed who presents to [facility] ER complaining of shortness of breath. Ms. Young reports she has had ongoing symptoms since last April in 2023 but acutely worsened over the past few days with worsening dyspnea on exertion that progressed to shortness of breath at rest. She also admits to feeling very fatigued and that she cannot do anything physically without becoming completely exhausted in addition to dry cough. She states she was recently diagnosed with a UTI after complaining of dysuria and she was subsequently treated with ciprofloxacin with her first dose taken last night. She states her symptoms are similar to her previous AE CHF for which she required supplemental oxygen, which she returned at because she was not using it. She additionally states she has been taking her furosemide as prescribed and she denies lower extremity edema. There was no report of associated fever, chills, runny nose, sore throat, ear pain, nausea, vomiting, diarrhea, constipation, abdominal pain, chest pain, palpitations, heart racing, headache or rash. In the ER she was noted to have an elevated NT pro-BNP II of 1,833 pg/mL present on admission with a corresponding CXR that revealed mild pulmonary edema with moderate cardiomegaly and trace Left pleural effusion with no focal consolidations complicated by clinical evidence of Acute Respiratory Insufficiency with patient requiring 2L NC with a mildly elevated troponin T of 26 ng/L present on admission suspected to be due to acute cardiac strain. She was then admitted to the PCU for ongoing care for stay that is expected to extend beyond 2 midnights. [facility] Medical History Coronary artery disease Iron deficiency anemia History of non-ST elevation myocardial infarction (NSTEMI) (2013) Longstanding persistent atrial fibrillation Essential (primary) hypertension Anxiety Hypothyroidism Hyperlipidemia Secondary pulmonary arterial hypertension Atherosclerosis of coronary artery of [place] heart without angina pectoris Paroxysmal atrial fibrillation Paroxysmal atrial flutter Sick sinus syndrome Home Medications ?Medication ?Instructions ?Recorded ?Last Taken ?Type buspirone 15 mg tablet 15 mg PO BID ANXIETY 06/02/13 Unknown History omeprazole 40 mg capsule,delayed 40 mg PO DAILY ACID REFLUX 06/02/13 04/11/24 History release nitroglycerin 0.4 mg sublingual 0.4 mg sublingual Q5M PRN CHEST 04/21/15 Unknown History tablet PAIN glimepiride 4 mg tablet 2 mg PO DAILY DIABETES 01/24/22 04/08/24 History amitriptyline 50 mg tablet 50 mg PO QHS DEPRESSION 02/17/23 Unknown History empagliflozin 10 mg tablet 10 mg PO DAILY DIABETES 02/17/23 Unknown History (Jardiance) ketotifen fumarate 0.025 % (0.035 1 drp ophthalmic (eye) BID PRN 02/17/23 Unknown History %) eye drops ([place]) ITCHING/ALLERGIES levothyroxine 100 mcg tablet 100 mcg PO DAILY THYROID 12/14/23 Unknown History (Synthroid) furosemide 40 mg tablet (Lasix) 40 mg PO DAILY water pill #60 tabs 12/17/23 Unknown Rx rivaroxaban 20 mg tablet (Xarelto) 20 mg PO QPM #90 tabs 10/06/24 Unknown Rx losartan 100 mg tablet 100 mg PO DAILY blood pressure #90 11/18/24 Unknown Rx tabs potassium chloride 20 mEq 40 meq (2 x 20 mEq) PO QDAY #90 11/21/24 Unknown Rx tablet,extended release(part/cryst) tabs metoprolol succinate 50 mg 50 mg PO DAILY heart/BP #90 tabs 11/23/24 Unknown Rx tablet,extended release 24 hr simvastatin 20 mg tablet 20 mg PO QHS CHOLESTEROL #90 tabs 12/22/24 Unknown Rx amlodipine 10 mg tablet 10 mg PO DAILY 02/08/25 Unknown History ciprofloxacin HCl 500 mg tablet 500 mg PO BID 02/08/25 Unknown History ferrous sulfate 325 mg (65 mg 65 mg PO DAILY 02/08/25 Unknown History iron) tablet (FeroSul) oxycodone-acetaminophen 5 mg-325 1 tab PO TID PRN PRN pain 02/08/25 Unknown History mg tablet Allergy/AdvReac Type Severity Reaction Status Date / Time poison fany extract (Poison Allergy Rash Verified 02/08/25 16:56 Fany Extract) Sulfa (Sulfonamide Allergy Hives Verified 02/08/25 16:56 Antibiotics) Family History Mother Cancer Father Cancer Brother CAD (coronary artery disease) Sister CAD (coronary artery disease) Surgical History S/P kyphoplasty History of tubal ligation History of appendectomy History of hysterectomy History of left heart catheterization (10/09/13) History of coronary artery stent placement (09/2010) Hx of atrioventricular node ablation (03/31/16) Presence of cardiac pacemaker (04/26/15) Social History household members: spouse Smoking Status: Former smoker how long ago did patient quit smokin's alcohol intake: never substance use type: does not use caffeine: Yes Type: coffee Number of servings: 3 ROS ROS Narrative Review of Systems: Constitutional: Patient denies fever or chills. Eyes: Patient denies changes in vision or discharge from eyes. ENT: Patient denies runny nose, sore throat or ear pain. Resp: Patient admits to dyspnea on exertion that progressed to shortness of breath at rest with intermittent dry cough as per HPI. CV: Patient denies chest pain, palpitations or heart racing. GI: Patient denies abdominal pain, nausea, vomiting, diarrhea or constipation. : Patient admits to dysuria with recently diagnosed UTI treated with ciprofloxacin as per HPI. MSK: Patient message generalized weakness and fatigue as per HPI. She denies arthralgias or myalgias. Skin: Patient denies rash, abscess, wounds or jaundice. Psych: Patient denies symptoms of uncontrolled depression or anxiety. Neuro: Patient denies headache, paresthesias or focal neurologic deficits. Allergy: Patient denies lip swelling, tongue swelling or urticaria. Hematology: Patient admits to easy bleeding and easy bruisability on apixaban. Endocrinology: Patient denies polyuria, polydipsia, polyphagia or heat/cold intolerance. 14 point ROS otherwise negative except for positives noted above in HPI. Vital Signs Vital Signs Vital Signs: 02/08/25 16:54 02/08/25 17:12 02/08/25 17:13 Temperature 97.5 F L Temperature Source Oral Pulse Rate 80 Respiratory Rate 22 H Blood Pressure 157/64 H Blood Pressure Mean 95 Pulse Ox 93 84 94 Oxygen Delivery Method Room Air Room Air Nasal Cannula Oxygen Flow Rate (L/min) 2 02/08/25 19:00 02/08/25 19:17 Temperature Temperature Source Pulse Rate 80 Respiratory Rate 24 H 22 H Blood Pressure 156/67 H Blood Pressure Mean 96 Pulse Ox 90 91 Oxygen Delivery Method Room Air Oxygen Flow Rate (L/min) Weight Weight: 194 lb 10.691 oz Body Mass Index (BMI) 29.5 Physical Exam Const alert, oriented x3, no apparent distress and average body habitus General Appearance: cooperative HEENT normocephalic, head/scalp atraumatic, hearing grossly normal bilaterally and moist oral mucous membranes Eyes PERRL, EOMs intact bilaterally and conjunctivae normal Neck no lymphadenopathy and supple Resp Resp Narrative: Mild bibasilar rales. Cardio regular rate and regular rhythm GI normal to inspection, nondistended, normoactive bowel sounds, soft to palpation, non-tender and non-distended Extremity normal to inspection, full ROM and no clubbing, cyanosis or edema Neuro oriented x3, CN's II-XII intact bilaterally, moves all extremities and no focal motor deficits Sensorium / Orientation: awake, alert, oriented to person, oriented to place and oriented to time Speech: speech normal Psych affect normal Results Medical Records Data Attestation: I reviewed the patient's medical records Lab / Micro Data Attestation: I reviewed the patient's lab results. 02/08/25 17:16 02/08/25 17:16 Labs: Laboratory Results - last 24 hr 02/08/25 17:16: WBC 6.7, RBC 3.80 L, Hgb 8.8 L, Hct 30.0 L, MCV 78.9 L, MCH 23.2 L, MCHC 29.3 L, RDW Std Deviation 53.7 H, RDW Coeff of Jose Alberto 18.7 H, Plt Count 237, MPV 10.8, Immature Gran % (Auto) 0.700, Neut % (Auto) 63.8, Lymph % (Auto) 18.5 L, [place] % (Auto) 13.6 H, Eos % (Auto) 2.8, Baso % (Auto) 0.6, Absolute Neuts (auto) 4.3, Absolute Lymphs (auto) 1.24, Nucleated RBC % 0.6, Sodium 135, Potassium 4.1, Chloride 102, Carbon Dioxide 18.9 L, Anion Gap 15, BUN 21 H, Creatinine 1.42 H, Estim Creat Clear Calc 33.68 L, Est GFR (MDRD) Non-Af 36 L, BUN/Creatinine Ratio 14.4, Glucose 93, Calcium 9.0, Total Bilirubin 0.56, AST 35 H, ALT 10, Alkaline Phosphatase 140 H, Troponin T High Sens 26 H, NT pro BNP II 1833 H, Total Protein 8.5 H, Albumin 3.7, Globulin 4.8 H, Albumin/Globulin Ratio 0.8 L 02/08/25 17:52: Lactic Acid 1.3 Micro: Microbiology 02/08/25 17:16 Mucosa - Nose SARS-CoV-2, Influenza & RSV (PCR) - Final Imaging Radiology Impression Chest X-Ray 02/08/25 17:41 IMPRESSION: Mild pulmonary edema. No focal consolidations. Trace left base effusion. Moderate cardiomegaly. Reading Location: [facility] [address] Assessment & Plan Assessment/Plan (1) Acute exacerbation of chronic heart failure: (2) Secondary pulmonary arterial hypertension: (3) Respiratory insufficiency: (4) Elevated troponin: (5) Generalized weakness: (6) Fatigue: QUALIFIERS: Fatigue type: unspecified Qualified Code(s): R53.83 - Other fatigue (7) Paroxysmal atrial fibrillation: (8) Sick sinus syndrome: (9) Presence of cardiac pacemaker: (10) Overweight (BMI 25.0-29.9): PLAN: Plan 1. Elevated NT pro-BNP II of 1,833 pg/mL present on admission with a corresponding CXR that revealed mild pulmonary edema with moderate cardiomegaly and trace Left pleural effusion with no focal consolidations consistent with AE of chronic mild systolic CHF; LVEF ~45% in the setting of known secondary pulmonary arterial hypertension - Admit to PCU. Continue IV furosemide began in ER plus supplemental potassium and magnesium. Check echocardiogram to evaluate LVEF. Give acetaminophen as needed for [id number] (level 1-5/10) pain or fever. Give oxycodone/acetaminophen as needed for severe (level 6-10/10) pain. 2. Acute Respiratory Insufficiency with patient requiring 2L NC due to #1 - Wean supplemental oxygen as tolerated. 3. Mildly elevated troponin T of 26 ng/L present on admission suspected to be due to acute cardiac strain attributable to #1 & #2 in the setting of known CAD; s/p RCA and LAD stents (2010) on as needed SL NTG - Serialize troponin. Doubt ACS. Continue as needed SL NTG. 4. Generalized Weakness and Fatigue arising from #1 - #3 - PT/OT and Case Management to consult and treat. 5. Paroxysmal atrial fibrillation; s/p AV isael ablation on apixaban - Stable with patient in NSR at this time. Resume apixaban as before. 6. History of sick sinus syndrome; s/p PPM (2014) - Stable. 7. Overweight; with BMI of 29.6 this admission adding to the burden of disease outlined from #1 - #6 - Weight loss will be recommended. Check TSH. This complicates her case and may hamper recovery. 8. Essential hypertension; on amlodipine, losartan, metoprolol and furosemide - Maintain present therapy. 9. Hyperlipidemia; on simvastatin - Resume statin. 10. Hypothyroidism; on levothyroxine - Continue levothyroxine and check TSH. 11. DM-2; of unknown control on glimepiride and empagliflozin - Hold oral hypoglycemics while inpatient. Give ADA/cardiac diet plus FSBS q. AC/HS with lowest intenisty SSI. 12. History of multiple myeloma; followed by Dr. Baker - Noted. 13. Chronic iron deficiency anemia; on ferrous sulfate - Resume ferrous sulfate as previous. 14. Depression with anxiety; on amitriptyline and buspirone twice daily - Home treatment to continue. 15. GERD; on omeprazole - Maintain PPI. 16. Osteoporosis; with history of compression fracture of thoracic vertebrae - Noted. 17. OA; on oxycodone-acetaminophen 3 times daily - We we will follow pain regimen and scales as outlined in #1. 18. DVT prophylaxis - Patient already on apixaban for #5 will be continued. Total time: Approximately (but not less than) 75 minutes. Charges/Coding Visit Charges Inpatient E&M: 09585 Init Hosp L3
[2025-02-08 20:29] LABS: Troponin T High Sens 2 HR 28 ng/L (<=14)
--- OUTSIDE RECORDS SUMMARY | 2025-02-08 21:15 | XMS RPT_ITS | CCD ---
Author Organization [facility] Care Team Providers Care Credit Balance Specialist Name Role Phone Kristan Narvaez Unavailable Unavailable Kristan Narvaez Unavailable Unavailable Victor M Rocha MD Primary Care Provider Victor M Rocha MD Unavailable Dr. Victor M Rocha Primary Care Provider [phone] Dr. Victor M Rocha Referring Provider [phone] Marni Waldron Attending Provider Unavailable LUIS FELIPE Alvarez Attending Provider LUIS FELIPE Alvarez Referring Provider LUIS FELIPE Alvarez Other Provider Dr. Vinny Root Attending Provider [phone] Victor M Rocha MD Primary Care Provider Victor M Rocha MD Unavailable Victor M Rocha MD Primary Care Provider Victor M Rocha MD Unavailable Dr. Victor M Rocha Primary Care Provider [phone] Dr. Victor M Rocha Referring Provider [phone] Dr. Vinny Root Attending Provider [phone] Dr. Victor M Rocha Primary Care Provider [phone] Dr. Victor M Rocha Referring Provider [phone] Dr. Vinny Root Attending Provider [phone] Dr. Victor M Rocha Primary Care Provider [phone] Dr. Vitcor M Rocha Referring Provider Dr. Vinny Root Attending Provider Victor M Rocha MD Primary Care Provider Josefa RN, Brittny Unavailable JOSHUA BAKER Referring Unavailable VICTOR M ROCHA Primary Care Unavailable Sandrine NÚÑEZ, Ivelisse Sal Unavailable Tannhof RETURNS PROCESSOR.HOTEL SALES MANAGER, Yovana Unavailable Lacy RETURNS PROCESSOR.HOTEL SALES MANAGER, Carlos Unavailable Bill NÚÑEZ, Prema Unavailable Unavailable Tannhof RETURNS PROCESSOR.HOTEL SALES MANAGER, Yovana Unavailable Unavail able Tannhof RETURNS PROCESSOR.HOTEL SALES MANAGER, Yovana Unavailable Dr. Victor M Rocha MD Primary Care Provider [phone] Ivett MORRISON, Dr. Casillas Attending Provider Dr. Victor M Rocha MD Referring Provider Amber Alvarez Attending Provider Eldershaunna, Victor M Primary Care Unavailable Terrance Zuniga Consulting Unavailable Mosteller, Juice Attending Unavailable Mosteller, Juice Admitting Unavailable Ivett, Vinny Consulting Unavailable Amber Alvarez Attending Unavail able Amber Alvarez Referring Unavail able Elderbrock, Victor M Primary Care Unavailable Ivett, Denton Attending Unavailable Elderbrock, Victor M Primary Care Unavailable Elderbrock, Victor M Primary Care Unavailable Stepan Ott Attending Unavailable Stepan Ott Referring Unavailable Elderbrock, Victor M Primary Care Unavailable Mosteller, Juice Attending Unavailable Mosteller, Juice Admitting Unavailable Mosteller, Juice Consulting Unavailable Elderbrock, Victor M Referring Unavailable Elderbrock, Victor M Primary Care Unavailable Amber Alvarez Attending Unavail able Elderbrock, Victor M Primary Care Unavailable Ivett, Vinny Attending Unavailable Terrance Zuniga Consulting Unavailable Ivett, Vinny Attending Unavailable Elderbrock, Victor M Primary Care Unavailable Elderbrock, Victor M Primary Care Unavailable Ivett, Vinny Attending Unavailable Elderbrock, Victor M Primary Care Unavailable Ivett, Denton Attending Unavailable Elderbrock, Victor M Primary Care Unavailable Amber Alvarez Attending Unavail able Elderbrock, Victor M Referring Unavailable Elderbrock, Victor M Primary Care Unavailable Ivett, Denton Attending Unavailable Jose Daniel Parra Attending Unavailable Elderbrock, Victor M Primary Care Unavailable Annabella Garcia Attending Unavailabl e Elderbrock, Victor M Referring Unavailable Elderbrock, Victor M Primary Care Unavailable Terrance Zuniga Attending Unavailable Ivett, Vinny Attending Unavailable Elderbrock, Victor M Primary Care Unavailable Ivett, Vinny Referring Unavailable Terrance Zuniga Attending Unavailable Elderbrock, Victor M Referring Unavailable Marni Waldron Attending Unavailable Elderbrock, Victor M Primary Care Unavailable Terrance Zuniga Consulting Unavailable Elderbrock, Victor M Primary Care Unavailable Ivett, Denton Attending Unavailable Elderbrock, Victor M Referring Unavailable Elderbrock, Victor M Primary Care Unavailable Javy BRISCOE, Amber Mitchell Attending Unavail able Ivett, Denton Attending Unavailable Elderbrock, Victor M Primary Care Unavailable Elderbrock, Victor M Referring Unavailable Howard Sousa Attending Unavailable Elderbrock, Victor M Primary Care Unavailable Prema Sampson RN Unavailable Unavailable LACY, CARLOS Attending Unavailable ELDERBROCK, VICTOR M D Primary Care Unavailable LACY, CARLOS Attending Unavailable ELDERBROCK, VICTOR M D Primary Care Unavailable LACY, CARLOS Referring Unavailable ELDERBROCK, VICTOR M D Primary Care Unavailable LACY, CARLOS Referring Unavailable ELDERBROCK, VICTOR M D Primary Care Unavailable MASCJOSHUA Ramírez A Attending Unavailable ELDERBROCK, VICTOR M D Primary Care Unavailable ELDERBROCK, VICTOR M D Primary Care Unavailable YOVANA PAINTER Attending Unavailabl e ELDERBROCK, VICTOR M D Primary Care Unavailable ELDERBROCK, VICTOR M D Primary Care Unavailable MASCI JOSHUA A Attending Unavailable ELDERBROCK, VICTOR M D Primary Care Unavailable MASCI, JOSHUA A Referring Unavailable ELDERBROCK, VICTOR M D Primary Care Unavailable MASCI, JOSHUA A Attending Unavailable ELDERBROCK, VICTOR M D Primary Care Unavailable ELDERBROCK, VICTOR M D Primary Care Unavailable ELDERBROCK, VICTOR M D Referring Unavailable Allergies Allergy Classification Reported Allergen(s) Allergy Type Date of Onset Reaction(s) Facility POISON FANY EXTRACT (2 sources) POISON FANY EXTRACT Drug Allergy 6 [facility] Work Phone: Sulfonamides (antibiotic) (2 sources) Sulfonamides (Antibiotic) Drug Allergy 6 Hives [facility] (2 sources) aspirin Drug Allergy 7 anemia [facility] Work Phone: (2 sources) Sulfonamides (Antibiotic) drug allergy 1 [facility] Work Phone: (20 sources) POISON FANY EXTRACT; Translations: [POISON FANY] Drug Allergy 6 [facility] Work Phone: (20 sources) Sulfonamides (Antibiotic); Translations: [SULFA (SULFONAMIDE ANTIBIOTICS)] Drug Allergy 6 [facility] (5 sources) Sulfonamides (Antibiotic) Allergy to substance 3 [facility] (1 source) Sulfonamides (Antibiotic) Drug allergy (disorder) [address] [facility] (1 source) poison fany extract Drug allergy (disorder) [address] [facility] Medications Current Medications Medication Drug Class(es) Dates Sig (Normalized) Sig (Original) acetaminophen 325 mg / HYDROcodone bitartrate 5 mg oral tablet (7 sources) Opioid Agonist Start: 11-21-2024 Hydrocodone-Acetam inophen 5-325 mg tablet Active 1 {tbl} PO THREE TIMES A DAY 0 November 21, 2024 12:00am per Dr. Ott's office Start: 05-01-2020 End: 05-04-2020 Hydrocodone-Acetaminophen 1 TABLET tablet Discontinued 1 {tbl} PO EVERY 6 HOURS NEEDED as needed for Pain 10 3 May 01, 2020 May 03, 2020 12:00am May 04, 2020 12:03am Contusion of rib on left side Contusion of left front wall of thorax, initial encounter Start: 05-01-2020 End: 05-04-2020 take 1 tablet by mouth every six hours as needed Hydrocodone-Acetaminophen Discontinued 1 TABLET PO EVERY 6 HOURS NEEDED 10 3 May 01, 2020 May 03, 2020 11:03pm amitriptyline hydrochloride 50 mg oral tablet (20 sources) Tricyclic Antidepressant Start: 06-02-2022 End: 08-12-2024 take 1 tablet by mouth once daily at bedtime amitriptyline (ELAVIL) 50 mg tablet Indications: Depression, unspecified depression type Take 1 tablet by mouth daily at bedtime. 90 tablet 3 08/12/2024 Active Start: 04-24-2022 End: 06-02-2022 take 2 tablets by mouth once daily at bedtime amitriptyline (ELAVIL) 25 mg tablet Indications: Depression, unspecified depression type Take 2 tablets by mouth daily at bedtime. 0 04/24/2022 06/02/2022 Discontinued Start: 04-02-2017 End: 02-17-2023 take 1 tablet by mouth at bedtime Amitriptyline 25 MG tablet Discontinued 25 mg PO AT BEDTIME April 02, 2017 12:00am February 17, 2023 11:23am Start: 08-10-2015 End: 05-01-2016 take 1 tablet by mouth once daily ELAVIL 25 MG TABS One tablet by mouth daily AMITRIPTYLINE HCL [id number] Sanaz Beverly RN Comment on above: Take 1 tablet by bruno th daily at bedtime. Take 2 tablets by mo uth daily at bedtime. amLODIPine 10 mg oral tablet (20 sources) Dihydropyridine Calcium Channel Rosaura Start: End: take 1 tablet by mouth once daily amLODIPine (NORVASC) 10 mg tablet Indications: Essential hypertension, benign Take 1 tablet by mouth once daily. 03/18/2018 Active Start: 10-25-2013 End: 07-11-2014 take 1 tablet by mouth once daily AMLODIPINE BESYLATE 5 MG TABS One tablet by mouth daily (in addition to Exforge) AMLODIPINE BESYLATE [id number] Amber Palafox PA-C Start: 10-10-2013 End: 10-10-2013 take 1 tablet by mouth once daily Amlodipine 10 MG tablet Discontinued 10 mg PO DAILY 11 08October 10, 2013 12:00am October 10, 2013 11:30am Comment on above: Take 1 tablet by bruno th once daily. busPIRone hydrochloride 15 mg oral tablet (20 sources) Start: 04-28-2023 End: 04-10-2025 take 1 tablet by mouth three times daily busPIRone (BUSPAR) 15 mg tablet Indications: Depression, unspecified depression type Take 1 tablet by mouth three times a day. 270 tablet 3 04/15/2024 04/10/2025 Active Start: 10-21-2010 End: 04-28-2023 take 1 tablet by mouth twice daily Buspirone 15 MG tablet Active 15 mg PO TWICE A DAY June 02, 2013 1:00am ANXIETY Comment on above: Take 1 tablet by bruno twice daily. Take 1 tablet by bruno three times a day. cephalexin 500 mg oral capsule (5 sources) Cephalosporin Antibacterial Start: End: take 1 capsule by mouth four times daily cephALEXin (KEFLEX) 500 mg capsule Take 1 capsule by mouth four times daily for 7 days. 28 capsule 0 02/16/2024 02/23/2024 Active Start: 01-15-2024 End: 01-22-2024 take 1 capsule by mouth twice daily cephALEXin (KEFLEX) 500 mg capsule Indications: Urgency of urination Take 1 capsule by mouth two times a day for 7 days. 14 capsule 0 01/15/2024 01/22/2024 Active Start: 06-05-2023 End: 06-12-2023 take 1 capsule by mouth three times daily cephALEXin (KEFLEX) 500 mg capsule Indications: Urinary frequency Take 1 capsule by mouth three times a day for 7 days. 21 capsule 0 06/05/2023 06/12/2023 Active Comment on above: Take 1 capsule by mo [facility] three times a day for 7 days. empagliflozin 10 mg oral tablet (20 sources) Sodium-Glucose Cotransporter 2 Inhibitor Start: 10-25-19 End: 11-26-19 take 1 tablet by mouth once daily, then take 1 tablet by mouth once daily in the morning empagliflozin (JARDIANCE) 10 mg tablet Take 1 tablet by mouth once daily. Take 1 tablet once daily in the morning 90 tablet 3 11/25/2024 Active Comment on above: Take 1 tablet by bruno once daily. Take 1 tablet once daily in the morning furosemide 40 mg oral tablet (20 sources) Loop Diuretic Start: 12-17-19 End: 02-19-20 24 take 1 tablet by mouth once daily furosemide (LASIX) 40 mg tablet Take 1 tablet by mouth once daily. 90 tablet 3 02/19/2024 Active Start: 05-15-2016 End: 02-26-2018 take 1 tablet by mouth once daily Furosemide 20 MG tablet Discontinued 20 mg PO DAILY 90 3 July 16, 2017 3:29pm February 26, 2018 11:12am glimepiride 4 mg oral tablet (20 sources) Sulfonylurea Start: 02-01-2024 End: 05-06-2024 take 0.5 tablet by mouth once daily at breakfast glimepiride (AMARYL) 4 mg tablet Take 0.5 tablets by mouth daily with breakfast. 90 tablet 3 05/06/2024 Active Start: 01-24-2022 take 2 mg by mouth once daily Glimepiride 4 mg tablet Active 2 mg PO DAILY January 24, 2022 12:00am DIABETES Start: 01-14-2022 End: 02-01-2024 take 1 tablet by mouth once daily at breakfast glimepiride (AMARYL) 4 mg tablet Take 1 tablet by mouth daily with breakfast. 90 tablet 3 01/03/2023 02/01/2024 Discontinued (Adjust Sig - Block E-Cancel) Start: 10-11-2021 End: 01-14-2022 take 1 tablet by mouth once daily at breakfast glimepiride (AMARYL) 2 mg tablet Indications: Type 2 diabetes mellitus with other diabetic kidney complication, without long-term current use of insulin (HCC) Take 1 tablet by mouth daily with breakfast. 90 tablet 3 10/11/2021 01/14/2022 Discontinued (Dosage adjustment) Start: 08-31-2018 End: 11-15-2019 take 1 mg by mouth once daily in the morning Glimepiride Discontinued 1 MG PO EVERY MORNING August 31, 2018 10:14am November 15, 2019 10:14am Start: 02-26-2018 End: 11-15-2019 take 1 mg by mouth once daily in the morning Glimepiride 2 mg tablet Discontinued 1 mg PO EVERY MORNING August 31, 2018 11:14am November 15, 2019 11:14am Comment on above: Take 1 tablet by bruno th daily with breakfast. iv contrast (will be provided with radiology test) (1 source) Start: 04-01-20 End: 04-02-20 inject 1 dose intravenously once, then inject 1 dose intravenously once ketotifen 0.25 mg/ml ophthalmic solution (20 sources) Histamine-1 Receptor Inhibitor Start: 02-18-20 take 0.025 drop(s) into the eye(s) twice daily as needed Ketotifen Fumarate (Alaway) 0.025 % (0.035 %) drops Active 1 NMA OPHTHALMIC TWICE A DAY as needed for ITCHING/ALLERGIES February 17, 2023 12:00am Start: 02-17-2023 Ketotifen Fuma rate (Alaway) 0.025 % (0.035 %) drops Active 1 DRP OPHTHALMIC TWICE A DAY February 16, 2023 11:00pm administer at least 8 hours apart ketotifen fumara te (ALAWAY) 0.025 % (0.035 %) ophthalmic solution Use 1 Drop in both eyes twice daily. Active ketotifen fumara te (ALAWAY) 0.025 % (0.035 %) ophthalmic solution Use 1 Drop in both eyes twice daily. 0 Active Comment on above: Use 1 Drop in both e yes twice daily. levoFLOXacin 750 mg oral tablet (1 source) Quinolone Antimicrobial Start: 06-15-20 take 750 mg by mouth once daily Levofloxacin Active 750 MG PO DAILY 10 14June 15, 2023 12:00am LORazepam 0.5 mg oral tablet (1 source) Benzodiazepine Start: 04-01-20 End: 04-01-20 24 take 1 tablet by mouth once, then take 1 tablet by mouth every hour losartan potassium 100 mg oral tablet (20 sources) Angiotensin 2 Receptor Rosaura Start: 03-25-20 End: 11-19-19 25 take 1 tablet by mouth once daily losartan (COZAAR) 100 mg tablet Take 100 mg by mouth once daily. 03/25/2024 Active Start: 02-26-2018 End: 12-24-2023 Losartan 100 mg tablet Disco ntinued 0 .ROUTE .COMPLEX 90 November 25, 2023 9:24am December 14, 2023 11:42am TAKE 1 TABLET DAILY Comment on above: Take 1 tablet by bruno th once daily. 24 hr metoprolol succinate 50 mg extended release oral tablet (20 sources) beta-Adrenergic Rosaura Start: 02-26-2018 End: 12-24-2023 Metoprolol Succinate 25 mg tablet extended release 24 hr Discontinued 0 .ROUTE .COMPLEX 90 November 25, 2023 9:24am December 14, 2023 11:42am TAKE 1 TABLET DAILY Start: 09-07-2012 End: 11-23-2024 take 1 tablet by mouth once daily metoprolol succinate ER (TOPROL XL) 50 mg 24 hr tablet Take 50 mg by mouth once daily. 06/02/2013 Active Start: 09-07-2012 take 1 tablet by bruno once daily TOPROL XL 25 MG [id number] One tablet by mouth daily METOPROLOL SUCCINATE [id number] Amber Palafox PA-C Start: 09-07-2012 take 1 tablet by bruno twice daily METOPROLOL SUCCINATE ER 25 MG [id number] One tablet by mouth twice daily METOPROLOL SUCCINATE [id number] Sanaz Beverly RN Comment on above: Take 1 tablet by bruno once daily. mupirocin 0.02 mg/mg topical ointment (2 sources) RNA Synthetase Inhibitor Antibacterial Start: End: mupirocin (BACTROBAN) 2 % ointment Apply to affected area three times a day for 7 days. 15 g 0 02/16/2024 02/23/2024 Active nitroglycerin 0.4 mg sublingual tablet (20 sources) Nitrate Vasodilator Start: End: nitroglycerin sublingual (NITROSTAT) 0.4 mg SL tablet Indications: Coronary artery disease involving [place] coronary artery of [place] heart without angina pectoris Dissolve 1 tablet under the tongue every 5 minutes as needed for chest pain. 25 tablet 2 12/24/2023 Active Comment on above: Dissolve 1 tablet un antonio the tongue every 5 minutes as needed for Chest Pain. omeprazole 40 mg delayed release oral capsule (20 sources) Proton Pump Inhibitor Start: End: take 1 capsule by mouth once daily omeprazole (PRILOSEC) 40 mg capsule Take 1 capsule by mouth once daily. 90 capsule 3 03/03/2024 Active Comment on above: Take 1 capsule by [facility] once daily. microencapsulated potassium chloride 20 meq extended release oral tablet (20 sources) Start: End: take 2 tablets by mouth once daily potassium chloride ER (KLOR-CON) 20 mEq tablet Take two tablets by mouth once daily. 12/16/2023 Active Start: 12-16-2023 End: 03-29-2024 take 1 tablet by mouth once daily potassium chloride ER (KLOR-CON) 20 mEq tablet Take 20 mEq by mouth once daily. 0 12/16/2023 02/01/2024 Discontinued Start: 06-16-2017 End: 02-26-2018 take 1 tablet by mouth once daily Potassium Chloride 20 mEq tablet,ER particles/crystals Discontinued 20 meq PO DAILY 90 3 November 02, 2017 5:00pm February 26, 2018 11:11am Start: 10-25-2013 take 1 tablet by bruno th once daily KLOR-CON M20 20 MEQ CR-TABS One tablet by mouth daily POTASSIUM CHLORIDE JOHANNY CR [id number] Vinny Root MD Start: 10-10-2013 End: 06-16-2017 take 1 tablet by mouth once daily Potassium Chloride 20 MEQ tablet Discontinued 20 meq PO DAILY 30 October 10, 2013 12:00am June 16, 2017 5:00pm simvastatin 20 mg oral tablet (20 sources) HMG-CoA Reductase Inhibitor Start: 08-12-2011 take 1 tablet by mouth once daily SIMVASTATIN 40 MG TABS One tablet by mouth daily every night SIMVASTATIN [id number] Vinny Root MD Start: 10-21-2010 End: 12-22-2024 take 1 tablet by mouth at bedtime Simvastatin 20 mg tablet Active 20 mg PO AT BEDTIME 90 December 22, 2024 8:36am CHOLESTEROL Comment on above: Take 20 mg by mouth daily at bedtime. levothyroxine sodium 0.1 mg oral tablet (20 sources) l-Thyroxine Start: End: take 1 tablet by mouth once daily levothyroxine (SYNTHROID) 100 mcg tablet Indications: Hypothyroidism, unspecified type , Fatigue, unspecified type , Generalized weakness Take 1 tablet by mouth once daily. 90 tablet 3 10/27/2024 Active Start: 08-20-2015 End: 12-14-2023 take 1 tablet by mouth once daily levothyroxine (EUTHYROX) 75 mcg tablet Indications: Hypothyroidism, unspecified type Take 1 tablet by mouth once daily. 90 tablet 3 10/06/2022 10/30/2023 Discontinued Comment on above: Take 1 tablet by bruno th once daily. TAKE 1 TABLET BY BRUNO TH ONCE DAILY ON AN EMPTY STOMACH FOR THYROID Completed/Discontinued Medications Medication Drug Class(es) Dates Sig (Normalized) Sig (Original) acetaminophen 500 mg oral capsule (20 sources) Start: 02-17-2023 End: 03-29-2024 take 2 capsules by mouth every four hours as needed for pain Acetaminophen 500 mg capsule Discontinued 1000 mg PO Q4H as needed for PAIN February 17, 2023 11:22am March 29, 2024 11:28am Start: 02-17-2023 take 1000 mg by mout h every four hours Acetaminophen Active 1000 MG PO Q4H February 17, 2023 10:22am Start: 03-15-2019 End: 02-17-2023 take 1 capsule by mouth every six hours Acetaminophen 500 mg capsule Discontinued 500 mg PO EVERY 6 HOURS March 15, 2019 12:00am February 17, 2023 11:27am Start: 09-12-2016 End: 08-31-2018 take 2 tablets by mouth at bedtime Acetaminophen 325 MG tablet Discontinued 650 mg PO AT BEDTIME September 12, 2016 1:00am August 31, 2018 11:15am Start: 09-12-2016 End: 08-31-2018 take 650 mg by mouth at bedtime Acetaminophen Disconti nued 650 MG PO AT BEDTIME September 12, 2016 12:00am August 31, 2018 10:15am Start: 10-21-2010 TYLENOL EXTRA STRENGTH 500 MG TABS As needed ACETAMINOPHEN [id number] Dee Stephen Mago Start: 10-08-2010 take 2 tablets by mo uth every four hours as needed acetaminophen (TYLENOL EXTRA STRENGTH) 500 mg ORAL tablet Take 2 tablets by mouth every 4 hours as needed. 100 tablet 0 10/08/2010 Active Comment on above: Take 2 tablets by mo uth every 4 hours as needed. acetaminophen 325 mg / oxyCODONE hydrochloride 5 mg oral tablet (20 sources) Opioid Agonist Start: 02-06-2024 End: 03-29-2024 Oxycodone-Acetaminophen (Percocet) 5-325 mg tablet Discontinued 1 {tbl} PO EVERY 6 HOURS as needed for pain 12 3 0 February 06, 2024 March 29, 2024 11:29am Compression fracture of body of thoracic vertebra Start: 01-24-2019 End: 01-29-2019 Oxycodone-Acetaminophen 1 EA CH tablet Discontinued 1 {tbl} PO EVERY 6 HOURS NEEDED as needed for Pain 9 3 January 24, 2019 January 26, 2019 12:00am January 29, 2019 12:09am Strain of lumbar region Strain of muscle, fascia and tendon of lower back, initial encounter Start: 01-24-2019 End: 01-29-2019 take 1 tablet by mouth every six hours as needed Oxycodone-Acetaminophen Discontinued 1 TABLET PO EVERY 6 HOURS NEEDED 9 3 January 24, 2019 January 28, 2019 11:09pm Start: 01-22-2019 End: 01-29-2019 Oxycodone-Acetaminophen 1 TA BLET tablet Discontinued 1 {tbl} PO EVERY 6 HOURS NEEDED as needed for Pain 12 3 0 January 22, 2019 January 24, 2019 12:00am January 29, 2019 12:08am Back pain Dorsalgia, unspecified Start: 01-22-2019 End: 01-29-2019 take 1 tablet by mouth every six hours as needed Oxycodone-Acetaminophen Discontinued 1 TABLET PO EVERY 6 HOURS NEEDED 12 3 January 22, 2019 January 28, 2019 11:08pm amiodarone hydrochloride 100 mg oral tablet (12 sources) Antiarrhythmic Start: 10-31-2015 End: 05-15-2016 take 1 tablet by mouth once daily AMIODARONE HCL 100 MG TABS One tablet by mouth daily AMIODARONE HCL [id number] Vinny Root MD Start: 05-08-2015 End: 08-28-2015 take 1 tablet by mouth once daily AMIODARONE HCL 200 MG TABS One tablet by mouth daily AMIODARONE HCL [id number] JOSE ANGEL SteinbergC amLODIPine 10 mg / hydroCHLOROthiazide 25 mg / valsartan 320 mg oral tablet (20 sources) Thiazide Diuretic, Dihydropyridine Calcium Channel Rosaura, Angiotensin 2 Receptor Rosaura Start: 08-21-2017 End: 02-26-2018 Qzyvjdmynv-Gvulxoyvr-Bnlunph id (Exforge Hct) 10-320-25 mg tablet Discontinued 1 {tbl} PO daily 90 0 August 21, 2017 6:04pm February 26, 2018 11:10am Start: 10-21-2010 take 1 tablet by bruno once daily EXFORGE HCT 10-320-25 MG TABS One tablet by mouth daily [id number] Amber Palafox PA-C Start: 10-21-2010 EXFORGE HCT 10 -320-25 MG TABS 1/2 tablet twice daily [id number] [id number] Edwige Lentz CLINICAL LAB SPECIALIST Start: 10-21-2010 take 1 tablet by bruno th once daily, then take 5-160 tablets by mouth EXFORGE HCT 5-160-25 MG TABS One tablet by mouth daily [id number]-[id number] [id number] Vinny Root MD aspirin 81 mg oral tablet (10 sources) Nonsteroidal Anti-inflammatory Drug Start: 11-17-2014 take 1 tablet by mouth once daily ASPIRIN 81 MG TABS One tablet by mouth daily ASPIRIN [id number] Vinny Root MD Start: 11-17-2014 End: 11-21-2016 take 1 tablet by mouth once daily ASPIRIN EC 81 MG TBEC One tablet by mouth daily ASPIRIN [id number] Sanaz Beverly RN Start: 10-21-2010 End: 11-17-2014 take 1 tablet by mouth once daily ASPIRIN 325 MG TABS One tablet by mouth daily ASPIRIN [id number] Vinny Root MD atenolol 25 mg oral tablet (4 sources) beta-Adrenergic Rosaura Start: 10-21-2010 End: 09-07-2012 take 1 tablet by mouth once daily ATENOLOL 25 MG TABS One tablet by mouth daily ATENOLOL [id number] Vinny Root MD atorvastatin 40 mg oral tablet (8 sources) HMG-CoA Reductase Inhibitor Start: 08-31-2012 End: 08-08-2013 LIPITOR 40 MG TABS One tablet by mouth daily-ON HOLD ATORVASTATIN CALCIUM [id number] Tena Roberts RN ciprofloxacin 500 mg oral tablet (4 sources) Quinolone Antimicrobial Start: 12-04-2022 End: 02-17-2023 take 1 tablet by mouth twice daily Ciprofloxacin Hcl (Cipro) 500 mg tablet Discontinued 500 mg PO TWICE A DAY 20 0 December 04, 2022 12:00am February 17, 2023 11:25am clopidogrel 75 mg oral tablet (4 sources) [id number] Platelet Inhibitor Start: 10-21-2010 End: 11-17-2014 take 1 tablet by mouth once daily PLAVIX 75 MG TABS One tablet by mouth daily CLOPIDOGREL BISULFATE [id number] Vinny Root MD diazePAM 5 mg oral tablet (18 sources) Benzodiazepine Start: 01-24-2019 End: 01-29-2019 take 1 tablet by mouth twice daily Diazepam 5 MG tablet Discontinued 5 mg PO TWICE A DAY 6 3 January 24, 2019 12:00am January 26, 2019 12:00am January 29, 2019 12:09am Start: 01-22-2019 End: 03-15-2019 take 2 tablets by mouth every eight hours as needed for muscle spasms Diazepam 5 MG tablet Discontinued 10 mg PO EVERY 8 HOURS as needed for Muscle Spasm January 22, 2019 12:00am March 15, 2019 9:31am Start: 01-22-2019 End: 03-15-2019 take 10 mg by mouth every eight hours Diazepam Discontinued 10 MG PO EVERY 8 HOURS January 21, 2019 11:00pm March 15, 2019 8:31am Start: 01-18-2019 End: 01-23-2019 take 1 tablet by mouth every eight hours as needed for muscle spasms Diazepam 5 MG tablet Discontinued 5 mg PO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 79.8 fL Low 80.0 - 100.0 fL [facility] Monocytes (Bld) [#/Vol] 0.78 10*3/uL [facility] Monocytes/100 WBC (Bld) 12.5 % [facility] Neutrophils (Bld) [#/Vol] 4.24 10*3/uL [facility] Neutrophils/100 WBC (Bld) 68.3 % [facility] Nucleated RBC (Bld) [#/Vol] NINF [facility] Nucleated RBC/100 WBC (Bld) [Ratio] 0 % /100 WBC [facility] Platelet mean volume (Bld) [Entitic vol] 10.5 fL 9.0 - 12.7 fL [facility] Platelets (Bld) [#/Vol] 318 10*3/uL [facility] RBC (Bld) [#/Vol] 3.82 10*6/uL Low 3.90 - 5.2 0 m/uL [facility] WBC (Bld) [#/Vol] 6.22 10*3/uL [facility] Basophils (Bld) [#/Vol] 0.05 10*3/uL Normal <0.11 [facility] Comment on above: Order Comment: Speci men Type: BLOOD SPECIMENOrdering Facility: [facility] Address: [address] [place] [address] Performed By: #### 5 7021-8 ####[facility] LABCLIA [id number] [place] [address] [place] Basophils/100 WBC (Bld) 0.8 % Normal [facility] Comment on above: Order Comment: Speci men Type: BLOOD SPECIMENOrdering Facility: [facility] Address: [address] [place] [address] Performed By: #### 5 7021-8 ####[facility] LABCLIA [id number] [address] [place] Differential cell count method Nom (Bld) Auto Normal [facility] Comment on above: Order Comment: Speci men Type: BLOOD SPECIMENOrdering Facility: [facility] Address: [address] [place] [address] Performed By: #### 5 7021-8 ####[facility] LABCLIA [id number] [place] [address] [place] Eosinophils (Bld) [#/Vol] 0.12 10*3/uL Normal <0.46 [facility] Comment on above: Order Comment: Speci men Type: BLOOD SPECIMENOrdering Facility: [facility] Address: [address] [place] [address] Performed By: #### 5 7021-8 ####[facility] LABCLIA [id number] [address] [place] Eosinophils/100 WBC (Bld) 1.9 % Normal [facility] Comment on above: Order Comment: Speci men Type: BLOOD SPECIMENOrdering Facility: [facility] Address: [address] [place] [address] Performed By: #### 5 7021-8 ####[facility] LABCLIA [id number] [place] [address] [place] Erythrocyte distribution width (RBC) [Ratio] 18.8 % High 11.5-15.0 [facility] Comment on above: Order Comment: Speci men Type: BLOOD SPECIMENOrdering Facility: [facility] Address: [address] [place] [address] Performed By: #### 5 7021-8 ####[facility] LABIA [id number] [place] [address] [place] Hematocrit (Bld) [Volume fraction] 30.5 % Low 36.0-46.0 [facility] Comment on above: Order Comment: Speci men Type: BLOOD SPECIMENOrdering Facility: [facility] Address: [address] [place] [address] Performed By: #### 5 7021-8 ####[facility] LABIA [id number] [place] [address] [place] Hemoglobin (Bld) [Mass/Vol] 8.7 g/dL Low 11.5-15.5 [facility] Comment on above: Order Comment: Speci men Type: BLOOD SPECIMENOrdering Facility: [facility] Address: [address] [place] [address] Performed By: #### 5 7021-8 ####[facility] LABIA [id number] [place] [address] [place] Immature granulocytes (Bld) [#/Vol] 10*3/uL Normal <0.10 [facility] Comment on above: Order Comment: Speci men Type: BLOOD SPECIMENOrdering Facility: [facility] Address: [address] [place] [address] Performed By: #### 5 7021-8 ####[facility] LABIA [id number] [place] [address] [place] Immature granulocytes/100 WBC (Bld) 0.3 % Normal [facility] Comment on above: Order Comment: Speci men Type: BLOOD SPECIMENOrdering Facility: [facility] Address: [address] [place] [address] Performed By: #### 5 7021-8 ####[facility] LABCLIA [id number] [place] [address] [place] Lymphocytes (Bld) [#/Vol] 1.01 10*3/uL Normal 1.00-4.00 [facility] Comment on above: Order Comment: Speci men Type: BLOOD SPECIMENOrdering Facility: [facility] Address: [address] [place] [address] Performed By: #### 5 7021-8 ####[facility] LABCLIA [id number] [place] [address] [place] Lymphocytes/100 WBC (Bld) 16.2 % Normal [facility] Comment on above: Order Comment: Speci men Type: BLOOD SPECIMENOrdering Facility: [facility] Address: [address] [place] [address] Performed By: #### 5 7021-8 ####[facility] LABCLIA [id number] [place] [id number] [place] MCH (RBC) [Entitic mass] 22.8 pg Low 26.0-34.0 [facility] Comment on above: Order Comment: Speci men Type: BLOOD SPECIMENOrdering Facility: [facility] Address: [address] [place] [address] Performed By: #### 5 7021-8 ####[facility] LABCLIA [id number] [place] [id number] [place] MCHC (RBC) [Mass/Vol] 28.5 g/dL Low 30.5-36.0 [facility] Comment on above: Order Comment: Speci men Type: BLOOD SPECIMENOrdering Facility: [facility] Address: [address] [place] [address] Performed By: #### 5 7021-8 ####[facility] LABCLIA [id number] [place] [address] [place] MCV (RBC) [Entitic vol] 79.8 fL Low 80.0-100.0 C [facility] Comment on above: Order Comment: Speci men Type: BLOOD SPECIMENOrdering Facility: [facility] Address: [address] [place] [address] Performed By: #### 5 7021-8 ####[facility] LABCLIA [id number] [place] [address] [place] Monocytes (Bld) [#/Vol] 0.78 10*3/uL Normal <0.87 [facility] Comment on above: Order Comment: Speci men Type: BLOOD SPECIMENOrdering Facility: [facility] Address: [address] [place] [address] Performed By: #### 5 7021-8 ####[facility] LABCLIA [id number] [place] [address] [place] Monocytes/100 WBC (Bld) 12.5 % Normal [facility] Comment on above: Order Comment: Speci men Type: BLOOD SPECIMENOrdering Facility: [facility] Address: [address] [place] [address] Performed By: #### 5 7021-8 ####[facility] LABCLIA [id number] [place] [address] [place] Neutrophils (Bld) [#/Vol] 4.24 10*3/uL Normal 1.45-7.50 [facility] Comment on above: Order Comment: Speci men Type: BLOOD SPECIMENOrdering Facility: [facility] Address: [address] [place] [address] Performed By: #### 5 7021-8 ####[facility] LABCLIA [id number] [place] [id number] [place] Neutrophils/100 WBC (Bld) 68.3 % Normal [facility] Comment on above: Order Comment: Speci men Type: BLOOD SPECIMENOrdering Facility: [facility] Address: [address] [place] [address] Performed By: #### 5 7021-8 ####[facility] LABCLIA [id number] [place] [address] [place] Nucleated RBC (Bld) [#/Vol] 10*3/uL Normal <0.01 [facility] Comment on above: Order Comment: Speci men Type: BLOOD SPECIMENOrdering Facility: [facility] Address: [address] [place] [address] Performed By: #### 5 7021-8 ####[facility] LABCLIA [id number] [place] [address] [place] Nucleated RBC/100 WBC (Bld) [Ratio] 0.0 /100 WBC Normal [facility] Comment on above: Order Comment: Speci men Type: BLOOD SPECIMENOrdering Facility: [facility] Address: [address] [place] [address] Performed By: #### 5 7021-8 ####[facility] LABIA [id number] [place] [address] [place] Platelet mean volume (Bld) [Entitic vol] 10.5 fL Normal 9.0-12.7 [facility] Comment on above: Order Comment: Speci men Type: BLOOD SPECIMENOrdering Facility: [facility] Address: [address] [place] [address] Performed By: #### 5 7021-8 ####[facility] LABCLIA [id number] [place] [address] [place] Platelets (Bld) [#/Vol] 318 10*3/uL Normal 150-400 [facility] Comment on above: Order Comment: Speci men Type: BLOOD SPECIMENOrdering Facility: [facility] Address: [address] [place] [address] Performed By: #### 5 7021-8 ####[facility] LABCLIA [id number] [place] [address] [place] RBC (Bld) [#/Vol] 3.82 10*6/uL Low 3.90-5.20 [facility] Comment on above: Order Comment: Speci men Type: BLOOD SPECIMENOrdering Facility: [facility] Address: [address] [place] [address] Performed By: #### 5 7021-8 ####[facility] LABCLIA [id number] [place] [id number] [place] WBC (Bld) [#/Vol] 6.22 10*3/uL Normal 3.70-11.00 [facility] Comment on above: Order Comment: Speci men Type: BLOOD SPECIMENOrdering Facility: [facility] Address: [address] [place] [address] Performed By: #### 5 7021-8 ####[facility] LABIA [id number] [address] [place] CNOVon 02-06-2025 CNOV Office Visit (FAMPWS ) ANTONIO GUPTA ([id number]) 1940 F Date Time Provider Department 02/06/25 11:00 AM [facility] During your visit today, we recorded the following information about you: Temperature Pulse Respiration Blood pressure 98.4 degrees 80/minute 16/minute 138/78 Weight 88 kg Carlos House APRN.CNP 02/06/2025 12:13 PM Signed Chief Complaint Patient presents with: 6 Month Exam: Weakness and no energy HPI Antonio Gupta is a 84 year old female who presents here today for above reason. Antonio Gupta is a 84-year-old female with a history of CHF, anemia, and a pacemaker, presenting for a routine follow-up and evaluation of new-onset fatigue, dyspnea, and palpitations. Antonio reports a 3-week history of significant fatigue, describing it as no energy to move my body and difficulty putting one foot in front of the other. This is a new symptom for her. She also notes new-onset dyspnea, describing it as panting even when sitting down, which coincided with the onset of fatigue. Additionally, she reports experiencing palpitations, describing her heart as beating faster than usual, also starting around the same time. No chest pain. She is currently using a walker for mobility and is in a wheelchair today. She denies fevers or chills. She has not reported these symptoms to her concrete block layer, Dr. Bueno, or his vet assistant, whom she usually sees. She has a pacemaker and had an echocardiogram approximately 2 years ago. She was hospitalized 3-4 months ago for what she believes was CHF, but she is unsure of the exact diagnosis. She states that she was discharged with oxygen but returned it without telling cardiology. Antonio also mentions cloudy urine and suspects a UTI, but has not sought medical attention for it. She has noticed a slight increase in weight, from 189 lbs in July to 194 lbs today, but denies significant fluctuations. She wears compression stockings daily and does not report any new leg swelling. Past medical history, appointments, medications, allergies reviewed. EXAM: BP 138/78 Pulse 80 Resp 16 Wt 88 kg (194 lb) SpO2 94% BMI 31.31 kg/m? General Appearance: Well appearing, alert, in no acute distress, well-hydrated, well nourished. and Obese. Position in a wheelchair. Neck: Supple, no adenopathy; thyroid symmetric Lungs: Lungs clear to auscultation. No wheezing, rhonchi, rales.. Heart: RRR without murmur, gallop, or rubs. No ectopy. Extremities: trace edema around the ankles. Assessment and Plan 1. Chronic diastolic CHF (congestive heart failure) (HCC) (I50.32) DELONG (dyspnea on exertion) (R06.09) Recent onset of dyspnea and palpitations over the past 3 weeks. History of CHF with a pacemaker in situ. Last echocardiogram was 2 years ago. No recent follow-up with cardiology regarding these symptoms. - Ordered chest X-ray to evaluate for pulmonary edema or other causes of dyspnea. - Ordered EKG to assess cardiac rhythm. - EKG in office today shows paced rhythm, 80 bpm; wide QRS, non-speficic intraventricular block - Advised patient to contact concrete block layer Dr. Bueno's office today to report symptoms and schedule an urgent follow-up. - Educated patient on the importance of timely reporting of symptoms to prevent complications. - Discussed if she were to get chest pain or worsening shortness of breath, that she needs to go to ER immediately. She and verbalized understanding. 2. Generalized weakness (R53.1) New onset of significant weakness over the past 3 weeks, coinciding with dyspnea. Differential includes anemia, infection, or worsening CHF. - Ordered CBC to evaluate for anemia. - Ordered urinalysis to rule out UTI. - Advised patient to monitor symptoms and seek immediate medical attention if worsening. 3. Hypothyroidism, unspecified type (E03.9) - Check TSH, continue current dose of Levothyroxine 4. Hyperlipidemia, unspecified hyperlipidemia type (E78.5) - To be determined, continue simvastatin 5. Essential hypertension, benign (I10) - Controlled today, continue with current medication 6. Type 2 diabetes mellitus with other diabetic kidney complication, without long-term current use of insulin (HCC) (E11.29) - To be determined, continue with current medications as prescribed. 7. Stage 3a chronic kidney disease (HCC) (N18.31) - Check CMP today, continue with Losartan Carlos House APRN.HOTEL SALES MANAGER RTO in 1 month. I spent a total of 51 minutes on the date of the service which included preparing to see the patient, [id number] patient care, completing clinical documentation, obtaining and/or reviewing separately obtained history, performing a medically appropriate examination, counseling and educating the patient/family/caregi harish, and ordering medications, tests, or procedures. This note was partly generated using [employer] (more content not included)... Normal [facility] Comprehensive metabolic 2000 panelon 02-06-2025 Albumin [Mass/Vol] 4.0 g/dL Normal 3.9-4.9 [facility] Comment on above: Order Comment: Speci men Type: BLOOD SPECIMENOrdering Facility: [facility] Address: [address] [place] [address] Performed By: #### 2 4323-8, 49708-5, LIPNF, 3016-3 ####[facility] LABIA [id number] [place] [address] [place] ALP [Catalytic activity/Vol] 132 U/L High 34-123 [facility] Comment on above: Order Comment: Speci men Type: BLOOD SPECIMENOrdering Facility: [facility] Address: [address] [place] [address] Performed By: #### 2 4323-8, 99431-3, LIPNF, 3016-3 ####[facility] LABIA [id number] [place] [address] [place] ALT [Catalytic activity/Vol] 15 U/L Normal 7-38 [facility] Comment on above: Order Comment: Speci men Type: BLOOD SPECIMENOrdering Facility: [facility] Address: [address] [place] [address] Performed By: #### 2 4323-8, 32608-8, LIPNF, 3016-3 ####[facility] LABIA [id number] [place] [address] [place] Anion gap [Moles/Vol] 11 mmol/L Normal 8-15 [facility] Comment on above: Order Comment: Speci men Type: BLOOD SPECIMENOrdering Facility: [facility] Address: [address] [place] [address] Performed By: #### 2 4323-8, 69448-9, LIPNF, 3016-3 ####[facility] LABIA [id number] [place] [address] [place] AST [Catalytic activity/Vol] 22 U/L Normal 13-35 [facility] Comment on above: Order Comment: Speci men Type: BLOOD SPECIMENOrdering Facility: [facility] Address: [address] [place] [address] Performed By: #### 2 4323-8, 98841-8, LIPNF, 3016-3 ####[facility] LABCLIA [id number] [address] [address] [place] Bilirubin [Mass/Vol] 0.6 mg/dL Normal 0.2-1.3 [facility] Comment on above: Order Comment: Speci men Type: BLOOD SPECIMENOrdering Facility: [facility] Address: [address] [place] [address] Performed By: #### 2 4323-8, 23080-4, LIPNF, 3016-3 ####[facility] LABCLIA [id number] [place] [id number] [place] Calcium [Mass/Vol] 9.4 mg/dL Normal 8.5-10.2 [facility] Comment on above: Order Comment: Speci men Type: BLOOD SPECIMENOrdering Facility: [facility] Address: [address] [place] [address] Performed By: #### 2 4323-8, 86278-7, LIPNF, 3016-3 ####[facility] LABIA [id number] [place] [id number] [place] Chloride [Moles/Vol] 101 mmol/L Normal 98-107 [facility] Comment on above: Order Comment: Speci men Type: BLOOD SPECIMENOrdering Facility: [facility] Address: [address] [place] [address] Performed By: #### 2 4323-8, 98550-8, LIPNF, 3016-3 ####[facility] LABIA [id number] [place] [id number] [place] CO2 [Moles/Vol] 21 mmol/L Low 22-30 [facility] Comment on above: Order Comment: Speci men Type: BLOOD SPECIMENOrdering Facility: [facility] Address: [address] [place], [place] [address] Performed By: #### 2 4323-8, 56188-5, LIPEDGAR, 3016-3 ####[facility] LABCLIA [id number] [place] [id number] [place] Creatinine [Mass/Vol] 1.34 mg/dL High 0.58-0.96 [facility] Comment on above: Order Comment: Speci men Type: BLOOD SPECIMENOrdering Facility: [facility] Address: [address] [place] [address] Performed By: #### 2 4323-8, 34535-0, LIPEDGAR, 3016-3 ####[facility] LABIA [id number] [place] [address] [place] eGFRcr SerPlBld CKD-EPI 2020 39 mL/min/1.73m??? Low >=60 [facility] Comment on above: Order Comment: Demet[facility] Type: BLOOD SPECIMENOrdering Facility: [facility] Address: [address] [place] [address] Result Comment: Martha mated Glomerular Filtration Rate (eGFR) is calculated using the 2020 CKD-EPI creatinine equation. This equation utilizes serum creatinine, sex, and age as parameters. The creatinine assay has traceable calibration to isotope dilution-mass spectrometry. Refer to KDIGO guidelines for clinical interpretation. In patients with unstable renal function, e.g. those with acute kidney injury, the eGFR may not accurately reflect actual GFR. Performed By: #### 2 4323-8, 87235-4, LIPEDGAR, 3016-3 ####[facility] LABCLIA [id number] [address] [address] [place] Glucose [Mass/Vol] 102 mg/dL High 74-99 [facility] Comment on above: Order Comment: Speci men Type: BLOOD SPECIMENOrdering Facility: [facility] Address: [address] [place] [address] Result Comment: The [place] [employer] (ADA) provides guidance for cutoff values for fasting glucose and random glucose. The ADA defines fasting as no caloric intake for at least 8 hours. Fasting plasma glucose results between 100 to 125 mg/dL indicate increased risk for diabetes (prediabetes). Fasting plasma glucose results greater than or equal to 126 mg/dL meet the criteria for diagnosis of diabetes. In the absence of unequivocal hyperglycemia, results should be confirmed by repeat testing. In a patient with classic symptoms of hyperglycemia or hyperglycemic crisis, random plasma glucose results greater than or equal to 200 mg/dL meet the criteria for diagnosis of diabetes. Reference: Standards of Medical Care in Diabetes 2016, [place] [employer]. Diabetes Care. 2016.39(Suppl 1). Performed By: #### 2 4323-8, 76144-4, LIPNF, 3016-3 ####[facility] LABIA [id number] [place] [address] [place] Potassium [Moles/Vol] 4.3 mmol/L Normal 3.7-5.1 [facility] Comment on above: Order Comment: Speci men Type: BLOOD SPECIMENOrdering Facility: [facility] Address: [address] [place] [address] Performed By: #### 2 4323-8, 89417-7, LIPNF, 6-3 ####[facility] LABIA [id number] [place] [address] [place] Protein [Mass/Vol] 8.7 g/dL High 6.3-8.0 [facility] Comment on above: Order Comment: Speci men Type: BLOOD SPECIMENOrdering Facility: [facility] Address: [address] [place] [address] Performed By: #### 2 4323-8, 21838-8, LIPNF, 3016-3 ####[facility] LABIA [id number] [place] [id number] [place] Sodium [Moles/Vol] 133 mmol/L Low 136-144 [facility] Comment on above: Order Comment: Speci men Type: BLOOD SPECIMENOrdering Facility: [facility] Address: [address] [place] [address] Performed By: #### 2 4323-8, 16031-8, LIPNF, 3016-3 ####[facility] LABCLIA [id number] [address] [address] [place] Urea nitrogen [Mass/Vol] 21 mg/dL Normal 7-21 [facility] Comment on above: Order Comment: Speci men Type: BLOOD SPECIMENOrdering Facility: [facility] Address: [address] [place] [address] Performed By: #### 2 4323-8, 40716-8, LIZETT, 3016-3 ####[facility] LABIA [id number] [address] [address] [place] HbA1c (Bld)on 02-06-2025 Average glucose Estimated from glycated hemoglobin (Bld) [Mass/Vol] 148 mg/dL Normal [facility] Comment on above: Order Comment: Speci men Type: BLOOD SPECIMENOrdering Facility: [facility] Address: [address] [place] [address] Result Comment: eAG: (Estimated average glucose) is a calculated value from HgbA1c and is labor union business representative of the average blood glucose level in the last 2-3 month period. Performed By: #### 5 5454-3 ####[facility] LABIA [id number] [address] [address] [place] HbA1c (Bld) [Mass fraction] 6.8 % High 4.3-5.6 [facility] Comment on above: Order Comment: Speci men Type: BLOOD SPECIMENOrdering Facility: [facility] Address: [address] [place] [address] Result Comment: Amer ican Diabetes Association guidelines indicate that patients with HgbA1c in the range 5.7-6.4% are at increased risk for development of diabetes, and intervention by lifestyle modification may be beneficial. HgbA1c greater or equal to 6.5% is considered diagnostic of diabetes. Performed By: #### 5 5454-3 ####[facility] LABIA [id number] [address] [address] [place] LIPID PANEL, NONFASTINGon 07 -28-2025 Cholesterol [Mass/Vol] 95 mg/dL Normal <200 [facility] Comment on above: Order Comment: Speci men Type: BLOOD SPECIMENOrdering Facility: [facility] Address: [address] [place] [address] Result Comment: <200 mg/dL, Desirable 200-239 mg/dL, Borderline high >239 mg/dL, High Performed By: #### 2 4323-8, 23234-6, LIPNF, 3016-3 ####[facility] LABCLIA [id number] [address] [facility] HDL CHOLESTEROL, NF 32 mg/dL Low >39 [facility] Comment on above: Order Comment: Speci men Type: BLOOD SPECIMENOrdering Facility: [facility] Address: [address] [place] [address] Result Comment: 40-5 9 mg/dL, Acceptable >59 mg/dL, High: Negative risk factor for coronary heart disease <40 mg/dL, Low: Positive risk factor for coronary heart disease Performed By: #### 2 4323-8, 10135-8, LIPNF, 3016-3 ####[facility] LABCLIA [id number] [address] LDL CHOLESTEROL CALCULATED, NF 50 mg/dL Normal <100 [facility] Comment on above: Order Comment: Speci men Type: BLOOD SPECIMENOrdering Facility: [facility] Address: [address] [place] [address] Result Comment: <100 mg/dL, Optimal 100-129 mg/dL, Near optimal/above optimal 130-159 mg/dL, Borderline high 160-189 mg/dL, High >189 mg/dL, Very high Secondary prevention optimal LDL Cholesterol levels are recommended to be <70 mg/dL LDL cholesterol is calculated using the Singh-NIH equation. Performed By: #### 2 4323-8, 23128-6, LIPNF, 3016-3 ####[facility] LABCLIA [id number] [place] [id number] [place] LDL/HDL RATIO, NF 1.56 mg/dL Normal <2.54 [facility] Comment on above: Order Comment: Specsimon lorenzo Type: BLOOD SPECIMENOrdering Facility: [facility] Address: [address] [place] [address] Result Comment: Refe drewce: 1. National Cholesterol Education Program ATP III Guideline At-A-Glance Quick Desk Reference: National Heart, Lung, and Blood [place]. National Institutes of Health. 2001: NIH Publication No. 01-3305. 2. An International Atherosclerosis Society position paper: global recommendations for the management of dyslipidemia: executive summary, Atherosclerosis. 2014: 232(2):410-413. Performed By: #### 2 4323-8, 44713-5, LIPNF, 3016-3 ####[facility] LABCLIA [id number] [address] [place] NON HDL CHOL, NF 63 mg/dL Normal <130 [facility] Comment on above: Order Comment: Noheliasimon lorenzo Type: BLOOD SPECIMENOrdering Facility: [facility] Address: [address] [place] [address] Result Comment: <130 mg/dL, Optimal 130-159 mg/dL, Near optimal/above optimal 160-189 mg/dL, Borderline high 190-219 mg/dL, High >219 mg/dL, Very high Secondary prevention optimal non HDL Cholesterol levels are recommended to be <100 mg/dL Performed By: #### 2 4323-8, 42644-6, LIPNF, 3016-3 ####[facility] LABCLIA [id number] [address] [facility] T CHOL/HDL RATIO NF 2.97 mg/dL Normal <5.10 [facility] Comment on above: Order Comment: Demetrio lorenzo Type: BLOOD SPECIMENOrdering Facility: [facility] Address: [address] [place] [address] Performed By: #### 2 4323-8, 42078-6, LIPNF, 3016-3 ####[facility] LABCLIA [id number] [place] [address] [place] TRIGLYCERIDES, NF 57 mg/dL Normal <150 [facility] Comment on above: Order Comment: Speci men Type: BLOOD SPECIMENOrdering Facility: [facility] Address: [address] [place] [address] Result Comment: <150 mg/dL, Normal 150-199 mg/dL, Borderline high 200-499 mg/dL, High >499 mg/dL, Very high Performed By: #### 2 4323-8, 48694-7, LIPNF, 3016-3 ####[facility] LABCLIA [id number] [place] [address] [place] VLDL CHOLESTEROL, NF 8 mg/dL Normal <30 [facility] Comment on above: Order Comment: Speci men Type: BLOOD SPECIMENOrdering Facility: [facility] Address: [address] [place] [address] Performed By: #### 2 4323-8, 34202-0, LIPNF, 3016-3 ####[facility] LABCLIA [id number] [address] [place] NT-proBNP [facility] 02-06 Natriuretic peptide.B prohormone N-Terminal [Mass/Vol] 1379 pg/mL High <450 [facility] Comment on above: Order Comment: Speci men Type: BLOOD SPECIMENOrdering Facility: [facility] Address: [address] [place] [address] Performed By: #### 2 4323-8, 73799-9, LIPNF, 3016-3 ####[facility] LABIA [id number] [place] [address] [place] TSH SerPl-aCncon 02-06-2025 TSH Qn 2.240 m[IU]/L Normal 0.270-4.200 [facility] Comment on above: Order Comment: Speci men Type: BLOOD SPECIMENOrdering Facility: [facility] Address: [address] [place] [address] Performed By: #### 2 4323-8, 27254-7, LIPNF, 3016-3 ####[facility] LABCLIA [id number] [place] [address] [place] XR CHEST 2V FRONTAL/LATon XR CHEST 2V FRONTAL/LAT * * *Final Repor t* * * DATE OF EXAM: Feb 06 2025 12:56PM WOX 5291 - XR CHEST 2V FRONTAL/LAT / PROCEDURE REASON: multiple diagnoses * * * * Physician Interpretation * * * * EXAMINATION: CHEST RADIOGRAPH (2 VIEW FRONTAL and LATERAL) CLINICAL HISTORY: DELONG (dyspnea on exertion) Chronic diastolic CHF (congestive heart failure) (HCC) MQ: XC2_6 EXAM DATE/TIME: 02/06/2025 12:56 PM COMPARISON: Chest x-ray of 05/03/2015 and bone survey of 02/26/2024 RESULT: Lines, tubes, and devices: Indwelling pacemaker is stable in position. Lungs and pleura: No consolidation. Bibasilar atelectasis/scarring. No lung mass. No pleural effusion. No pneumothorax. Cardiomediastinal silhouette: Mildly enlarged cardiomediastinal silhouette. Bones and soft tissues: Patient has had vertebral plasty of T8. Stable compression of T12. IMPRESSION: No acute radiographic abnormality. Derrick Follower: ARCHIE Transcribe Date/Time: Feb 06 2025 1:04P Dictated by : CINTHYA PERAAZ MD This examination was interpreted and the report reviewed and electronically signed by: CINTHYA PERAZA MD on Feb 06 2025 1:06PM EST [id number] Normal [facility] XR Chest PA and Lateralon IMPRESSION: No acute radiographic abnormality. Derrick Follower: ARCHIE Transcribe Date/Time: Feb 06 2025 1:04P Dictated by : CINTHYA PERAZA MD This examination was interpreted and the report reviewed and electronically signed by: CINTHYA PERAZA MD on Feb 06 2025 1:06PM EST DIVISION OF RADIOLOGY * * *Final Report* * * DATE OF EXAM: Feb 06 2025 12:56PM WOX [id number] - XR CHEST 2V FRONTAL/LAT / PROCEDURE REASON: multiple diagnoses * * * * Physician Interpretation * * * * EXAMINATION: CHEST RADIOGRAPH (2 VIEW FRONTAL & LATERAL) CLINICAL HISTORY: DELONG (dyspnea on exertion) Chronic diastolic CHF (congestive heart failure) (HCC) MQ: XC2_6 EXAM DATE/TIME: 02/06/2025 12:56 PM COMPARISON: Chest x-ray of 05/03/2015 and bone survey of 02/26/2024 RESULT: Lines, tubes, and devices: Indwelling pacemaker is stable in position. Lungs and pleura: No consolidation. Bibasilar atelectasis/scarring. No lung mass. No pleural effusion. No pneumothorax. Cardiomediastinal silhouette: Mildly enlarged cardiomediastinal silhouette. Bones and soft tissues: Patient has had vertebral plasty of T8. Stable compression of T12. DIVISION OF RADIOLOGY Provider, [facility] - 02/06/2025 * * *Final Report* * * DATE OF EXAM: Feb 06 2025 12:56PM WOX 5291 - XR CHEST 2V FRONTAL/LAT / PROCEDURE REASON: multiple diagnoses * * * * Physician Interpretation * * * * EXAMINATION: CHEST RADIOGRAPH (2 VIEW FRONTAL & LATERAL) CLINICAL HISTORY: DELONG (dyspnea on exertion) Chronic diastolic CHF (congestive heart failure) (HCC) MQ: XC2_6 EXAM DATE/TIME: 02/06/2025 12:56 PM COMPARISON: Chest x-ray of 05/03/2015 and bone survey of 02/26/2024 RESULT: Lines, tubes, and devices: Indwelling pacemaker is stable in position. Lungs and pleura: No consolidation. Bibasilar atelectasis/scarring. No lung mass. No pleural effusion. No pneumothorax. Cardiomediastinal silhouette: Mildly enlarged cardiomediastinal silhouette. Bones and soft tissues: Patient has had vertebral plasty of T8. Stable compression of T12. IMPRESSION IMPRESSION: No acute radiographic abnormality. Derrick Follower: ARCHIE Transcribe Date/Time: Feb 06 2025 1:04P Dictated by : CINTHYA PERAZA MD This examination was interpreted and the report reviewed and electronically signed by: CINTHYA PERAZA MD on Feb 06 2025 1:06PM [facility] Radiology Study observation (narrative) Osmar garcia [facility] XR Chest PA and LateralOrder ed By: [facility] Provider on 02-06-2025 [facility] Cardiology Visit Reporton Cardiology Visit Report [facility] [address] [place] [address] OFFICE VISIT Date of Service: 11/18/24 MR#: [id number] Acct: [id number] Name: ANTONIO GUPTA Rep #: [id number] : 1940 Provider: LUIS FELIPE Bills Age/Sex: 84/F Location: [facility] Status: Signed HPI HPI History of Present Illness Details: ANTONIO GUPTA, is a 83 F with a history of coronary artery disease with angioplasty and stenting of the LAD and RCA in September 2010. She also has a history of hypertension, hyperlipidemia, paroxysmal atrial fibrillation and pacemaker placement following an AV isael ablation, and anemia. She does see Dr. Baker for her anemia and multiple myeloma. She did have her PPM generator change in 03/2024. She did undergo a stress test in February 2022 demonstrating no evidence of ischemia. She was in the hospital in 12/2023 with acute respiratory failure with anemia. Echocardiogram demonstrated an EF of 55%, RSVP at 50 mmhg. She also has a lumbar compression fx. She is still having back issues. She has multiple lumbar compression fractures. She is in a WC. She does not have any chest pain. She does have SOB with exertion, this is similar to previous. She does have some swelling that goes away in the AM. Pt does not have a medication list with her and does not know what they are. Intake Vital Signs 04/11/24 11:56 11/18/24 06:01 Height 5 ft 8 in 5 ft 8 in Weight: 195 lb BMI 29.6 BP 134/76 H Blood Pressure Location Lt brachial Position Sitting Respiration 18 Pulse 67 Pulse Source Monitor Pulse Oximetry (%) 92 Intake Visit Reasons: 6 M FU [employer] Required: No Is patient in pain?: No Allergies poison fany extract (Poison Fany Extract) Allergy (Verified 11/18/24 11:05) Rash Sulfa (Sulfonamide Antibiotics) Allergy (Verified 11/18/24 11:05) Hives Medications ???Medication ???Instructions ???Recorded ???Confirmed ???Type buspirone 15 mg tablet 15 mg PO BID ANXIETY 06/02/1303/14 History omeprazole 40 mg capsule,delayed 40 mg PO DAILY ACID REFLUX 3 04/11/24 History release nitroglycerin 0.4 mg sublingual 0.4 mg sublingual Q5M PRN CHEST 04/08/24 History tablet PAIN glimepiride 4 mg tablet 2 mg PO DAILY DIABETES 01/24/22 History amitriptyline 50 mg tablet 50 mg PO QHS DEPRESSION 02/17/23 0 04/08/24 History empagliflozin 10 mg tablet 10 mg PO DAILY DIABETES 02/17/23 0 04/08/24 History (Jardiance) ketotifen fumarate 0.025 % (0.035 1 drp ophthalmic (eye) BID PRN 04/08/24 History %) eye drops ([place]) ITCHING/ALLERGIES levothyroxine 100 mcg tablet 100 mcg PO DAILY THYROID 12/14/23 04/08/24 History (Synthroid) simvastatin 20 mg tablet 20 mg PO QHS CHOLESTEROL 12/14/23 11/18/24 History furosemide 40 mg tablet (Lasix) 40 mg PO DAILY water pill #60 tabs 12/17/23 11/18/24 Rx rivaroxaban 20 mg tablet (Xarelto) 20 mg PO QPM #90 tabs 10/06/24 0 11/18/24 Rx losartan 100 mg tablet 100 mg PO DAILY blood pressure #90 11/18/24 Rx tabs hydrocodone-acetamino phen 5-325mg 1 tab PO TID per Dr. Ott's History 5mg-325mg office potassium chloride 20 mEq 40 meq (2 x 20 mEq) PO QDAY #90 Rx tablet,extended release(part/cryst) tabs metoprolol succinate 50 mg 50 mg PO DAILY heart/BP #90 tabs 0 11/23/24 Rx tablet,extended release 24 hr Ejection fraction %: 55 Have you fallen in the past year?: No Nurse's Note: no medication list, has no idea what medications she is taking [facility] Medical History Coronary artery disease Iron deficiency anemia History of non-ST elevation myocardial infarction (NSTEMI) (2013) Longstanding persistent atrial fibrillation Essential (primary) hypertension Anxiety Hypothyroidism Hyperlipidemia Secondary pulmonary arterial hypertension Atherosclerosis of coronary artery of [place] without angina pectoris Paroxysmal atrial fibrillation Paroxysmal atrial flutter Sick sinus syndrome Surgical History S/P kyphoplasty History of tubal ligation History of appendectomy History of hysterectomy History of left heart catheterization (10/09/13) History of coronary artery stent placement (09/2010) Hx of atrioventricular node ablation (03/31/16) Presence of cardiac pacemaker (04/26/15) Family History Mother Cancer Father Cancer Brother CAD (coronary artery disease) Sister CAD (coronary artery disease) Social History household members: spouse Smoking Status: Former smoker how long ago did patient quit smokin (more content not included)... [facility] CNOVon 08-12-2024 OV Office Visit (FAMPWS ) JULIÁN KEENEAN ([id number]) 1940 F Date Time Provider Department 08/12/24 1:00 PM [facility] FAMPWS During your visit today, we recorded the following information about you: Pulse Respiration Blood pressure Weight 80/minute 18/minute 128/86 85.7 kg Carlos House APRN.HOTEL SALES MANAGER 08/12/2024 1:27 PM Signed Antonio Gupta is a 84 year old female here for a Medicare wellness visit. Medicare Health Risk Assessment General Health Good Exercise: Minutes/Day 0 min Exercise: Days/Week 0 days Alcohol: Daily Use Never Alcohol: Drinks/Day Patient does not drink Alcohol: 6 or more drinks Never Feel off balance Yes Concerns: Teeth/Dentures No Concerns: Sexual function No Troubled by feelings None of the above Frequency: Eating healthy diet Nearly every day ADLs requiring help Grocery shopping; Walking; Driving Safety precautions in home/vehicle Yes Smoke, vape, chews tobacco No Difficulty hearing Yes Difficulty seeing No Current Providers Specialists: I have reviewed specialist-related care of the patient in the medical record. Medical/Family history review Reviewed and updated problem list, medical/surgical/fami ly/social history, medications, and allergies. Opioid use review Opioid Medications (last 90 days) 08/12/2024 Opioid Medications oxycodone HCl/acetaminophen TAKE 1 TO 2 TABLETS BY MOUTH EVERY 6 HOURS FOR PAIN (5-325 mg tab) Details Patient-reported medication Prescribed No opioid use on file in the last 90 days Does patient have risk factors for opioid abuse? No Pain overview Current pain concerns and treatment plan reviewed. Patient under the care of a specialist. Anxiety/Depression screening PHQ-2 Score: 0 (Lower risk for depression) Recommendation: continuing current treatment plan Cognitive screening Mini Cog Score: 4 Cognitive screening reviewed and No further action needed (score 3-5). Functional Observation Was the patient's Timed Up AND Go test unsteady or >= 12 seconds? No Advance Care Planning Surrogate decision maker and/or advance care plan documented Measurements BP 128/86 Pulse 80 Resp 18 Wt 85.7 kg (189 lb) SpO2 96% BMI 30.51 kg/m? Vision Screening: Follows with optometry/ophthalmolo gy Assessment/Plan Medicare annual wellness visit, subsequent (Z00.00) - Counseled on healthy diet and regular exercise - Fall avoidance information provided - Personalized prevention plan provided Carlos House APRN.HOTEL SALES MANAGER Additional Concerns The following concerns were also discussed with the patient: Patient presenting today for routine follow-up. She had labs completed prior to her visit. We will review. History of MGUS. Previously following with hematology. She states that she no longer follows with them per her choice. She does not wish to know any further diagnosis or investigate any anemia. Her most recent CBC was stable. She follows with us her group for history of CHF, atrial fibrillation, HTN. She is taking her medication as prescribed. Does not check BP at home. She denies any weight gain. She denies any chest pain or shortness of breath. Following with pain management for history of chronic back pain. She is on opioid management. She is taking as prescribed. She follows with them routinely. History of hypothyroidism. She is taking her levothyroxine as prescribed. She denies any side effects. History of diabetes. She is taking her medication as prescribed. She does not check her glucose. Last hemoglobin A1c was 6.5%. We discussed that she does not really need to check glucose at this time. CKD: Following GFR. Stable. On ARB and SGLT2. History of anxiety/depression. Patient states that she is stable on BuSpar and amitriptyline at night. She would like a refill of her amitriptyline. Denies any side effects. Denies suicidal actions. PHYSICAL EXAM BP 128/86 Pulse 80 Resp 18 Wt 85.7 kg (189 lb) SpO2 96% BMI 30.51 kg/m? GENERAL: well appearing, alert, in no acute distress Neck: normal, supple, and thyroid normal size, non-tender, without nodularity CARDIOVASCULAR: regular rate and rhythm. No murmur, rubs or gallops. PULMONARY: clear to auscultation, no wheezing, rhonchi, or crackles ABDOMEN: soft, non-tender, non-distended, no masses or organomegaly EXTREMITY: no lower extremity edema. No skin discoloration. Latest Ref Rng 08/08/2024 Protein, Total 6.3 - 8.0 g/dL 8.4 (H) Albumin 3.9 - 4.9 g/dL 4.0 Calcium 8.5 - 10.2 mg/dL 9.6 Bilirubin, Total 0.2 - 1.3 mg/dL 0.6 Alkaline Phosphatase 34 - 123 U/L 150 (H) AST 13 - 35 U/L 18 ALT 7 - 38 U/L 11 Glucose 74 - 99 mg/dL 99 BUN 7 - 21 mg/dL 18 Creatinine 0.58 - 0.96 mg/dL 1.20 (H) Sodium 136 - 144 mmol/L 132 (L) Potassium 3.7 - 5.1 mmol/L 4.0 Chloride 98 - 107 mmol/L 95 (L) CO2 22 - 30 mmol/L 24 Anion Gap 8 - 15 mmol/L 13 eGFR >=60 mL/min/1.73 (more content not included)... Normal [facility] CBC panel Auto (Bld)on 08-08 Erythrocyte distribution width (RBC) [Ratio] 15.6 % High 11.5-15.0 [facility] Comment on above: Order Comment: Speci men Type: BLOOD SPECIMENOrdering Facility: [facility] Address: [address] [place] [address] Performed By: #### 5 8410-2 ####[facility] LABCLIA [id number] [place] [address] [place] Hematocrit (Bld) [Volume fraction] 38.7 % Normal 36.0-46.0 [facility] Comment on above: Order Comment: Speci men Type: BLOOD SPECIMENOrdering Facility: [facility] Address: [address] [place] [address] Performed By: #### 5 8410-2 ####[facility] LABCLIA [id number] [place] [address] [place] Hemoglobin (Bld) [Mass/Vol] 11.8 g/dL Normal 11.5-15.5 [facility] Comment on above: Order Comment: Speci men Type: BLOOD SPECIMENOrdering Facility: [facility] Address: [address] [place] [address] Performed By: #### 5 8410-2 ####[facility] LABIA [id number] [place] [address] [place] MCH (RBC) [Entitic mass] 28.6 pg Normal 26.0-34.0 [facility] Comment on above: Order Comment: Speci men Type: BLOOD SPECIMENOrdering Facility: [facility] Address: [address] [place] [address] Performed By: #### 5 8410-2 ####[facility] LABCLIA [id number] [place] [address] [place] MCHC (RBC) [Mass/Vol] 30.5 g/dL Normal 30.5-36.0 [facility] Comment on above: Order Comment: Speci men Type: BLOOD SPECIMENOrdering Facility: [facility] Address: [address] [place] [address] Performed By: #### 5 8410-2 ####[facility] LABIA [id number] [place] [address] [place] MCV (RBC) [Entitic vol] 93.9 fL Normal 80.0-100.0 [facility] Comment on above: Order Comment: Speci men Type: BLOOD SPECIMENOrdering Facility: [facility] Address: [address] [place] [address] Performed By: #### 5 8410-2 ####[facility] [id number] [place] [address] [place] Nucleated RBC (Bld) [#/Vol] 10*3/uL Normal <0.01 [facility] Comment on above: Order Comment: Speci men Type: BLOOD SPECIMENOrdering Facility: [facility] Address: [address] [place] [address] Performed By: #### 5 8410-2 ####[facility] [id number] [place] [address] [place] Platelet mean volume (Bld) [Entitic vol] 10.5 fL Normal 9.0-12.7 [facility] Comment on above: Order Comment: Speci men Type: BLOOD SPECIMENOrdering Facility: [facility] Address: [address] [place] [address] Performed By: #### 5 8410-2 ####[facility] LABIA [id number] [place] [address] [place] Platelets (Bld) [#/Vol] 321 10*3/uL Normal 150-400 [facility] Comment on above: Order Comment: Speci men Type: BLOOD SPECIMENOrdering Facility: [facility] Address: [address] [place] [address] Performed By: #### 5 8410-2 ####[facility] LABCLIA [id number] [address] [address] [place] RBC (Bld) [#/Vol] 4.12 10*6/uL Normal 3.90-5.20 [facility] Comment on above: Order Comment: Speci men Type: BLOOD SPECIMENOrdering Facility: [facility] Address: [address] [place] [address] Performed By: #### 5 8410-2 ####[facility] LABCLIA [id number] [address] [address] [place] WBC (Bld) [#/Vol] 7.25 10*3/uL Normal 3.70-11.00 [facility] Comment on above: Order Comment: Speci men Type: BLOOD SPECIMENOrdering Facility: [facility] Address: [address] [place] [address] Performed By: #### 5 8410-2 ####[facility] LABCLIA [id number] [place] [address] [place] Comprehensive metabolic 2000 panelon 08-08-2024 Albumin [Mass/Vol] 4.0 g/dL Normal 3.9-4.9 [facility] Comment on above: Order Comment: Speci men Type: BLOOD SPECIMENOrdering Facility: [facility] Address: [address] [place] [address] Performed By: #### 2 4323-8, 74591-8, 3016-3 ####[facility] LABCLIA [id number] [place] [id number] [place] ALP [Catalytic activity/Vol] 150 U/L High 34-123 [facility] Comment on above: Order Comment: Speci men Type: BLOOD SPECIMENOrdering Facility: [facility] Address: [address] [place] [address] Performed By: #### 2 4323-8, 23980-3, 3016-3 ####[facility] LABCLIA [id number] [address] [address] [place] ALT [Catalytic activity/Vol] 11 U/L Normal 7-38 [facility] Comment on above: Order Comment: Speci men Type: BLOOD SPECIMENOrdering Facility: [facility] Address: [address] [place] [address] Performed By: #### 2 4323-8, 75807-0, 3016-3 ####[facility] LABCLIA [id number] [place] [id number] [place] Anion gap [Moles/Vol] 13 mmol/L Normal 8-15 [facility] Comment on above: Order Comment: Speci men Type: BLOOD SPECIMENOrdering Facility: [facility] Address: [address] [place] [address] Performed By: #### 2 4323-8, 63131-9, 6-3 ####[facility] LABCLIA [id number] [place] [address] [place] AST [Catalytic activity/Vol] 18 U/L Normal 13-35 [facility] Comment on above: Order Comment: Speci men Type: BLOOD SPECIMENOrdering Facility: [facility] Address: [address] [place] [address] Performed By: #### 2 4323-8, 11956-4, 6-3 ####[facility] LABCLIA [id number] [place] [id number] [place] Bilirubin [Mass/Vol] 0.6 mg/dL Normal 0.2-1.3 [facility] Comment on above: Order Comment: Speci men Type: BLOOD SPECIMENOrdering Facility: [facility] Address: [address] [place] [address] Performed By: #### 2 4323-8, 35678-8, 3016-3 ####[facility] LABCLIA [id number] [place] [id number] [place] Calcium [Mass/Vol] 9.6 mg/dL Normal 8.5-10.2 [facility] Comment on above: Order Comment: Speci men Type: BLOOD SPECIMENOrdering Facility: [facility] Address: [address] [place] [address] Performed By: #### 2 4323-8, 59534-8, 3016-3 ####[facility] LABCLIA [id number] [place] [address] [place] Chloride [Moles/Vol] 95 mmol/L Low 98-107 [facility] Comment on above: Order Comment: Speci men Type: BLOOD SPECIMENOrdering Facility: [facility] Address: [address] [place] [address] Performed By: #### 2 4323-8, 90975-3, 3016-3 ####[facility] LABCLIA [id number] [place] [address] [place] CO2 [Moles/Vol] 24 mmol/L Normal 22-30 [facility] Comment on above: Order Comment: Speci men Type: BLOOD SPECIMENOrdering Facility: [facility] Address: [address] [place] [address] Performed By: #### 2 4323-8, 78527-7, 6-3 ####[facility] LABCLIA [id number] [place] [address] [place] Creatinine [Mass/Vol] 1.20 mg/dL High 0.58-0.96 [facility] Comment on above: Order Comment: Speci men Type: BLOOD SPECIMENOrdering Facility: [facility] Address: [address] [place] [address] Performed By: #### 2 4323-8, 12984-3, 3016-3 ####[facility] LABCLIA [id number] [place] [address] [place] Creatinine and Glomerular filtration rate.predicted panel (S/P/Bld) 44 mL/min/1.73m??? Low >=60 [facility] Comment on above: Order Comment: Demetrio lorenzo Type: BLOOD SPECIMENOrdering Facility: [facility] Address: [address] [place] [address] Result Comment: Martha mated Glomerular Filtration Rate (eGFR) is calculated using the 2020 CKD-EPI creatinine equation. This equation utilizes serum creatinine, sex, and age as parameters. The creatinine assay has traceable calibration to isotope dilution-mass spectrometry. Refer to KDIGO guidelines for clinical interpretation. In patients with unstable renal function, e.g. those with acute kidney injury, the eGFR may not accurately reflect actual GFR. Performed By: #### 2 4323-8, 79267-0, 6-3 ####[facility] LABIA [id number] [place] [address] [place] Glucose [Mass/Vol] 99 mg/dL Normal 74-99 [facility] Comment on above: Order Comment: Demetrio lorenzo Type: BLOOD SPECIMENOrdering Facility: [facility] Address: [address] [place] [address] Result Comment: The [place] Diabetes Association (ADA) provides guidance for cutoff values for fasting glucose and random glucose. The ADA defines fasting as no caloric intake for at least 8 hours. Fasting plasma glucose results between 100 to 125 mg/dL indicate increased risk for diabetes (prediabetes). Fasting plasma glucose results greater than or equal to 126 mg/dL meet the criteria for diagnosis of diabetes. In the absence of unequivocal hyperglycemia, results should be confirmed by repeat testing. In a patient with classic symptoms of hyperglycemia or hyperglycemic crisis, random plasma glucose results greater than or equal to 200 mg/dL meet the criteria for diagnosis of diabetes. Reference: Standards of Medical Care in Diabetes 2016, [place] Diabetes Association. Diabetes Care. 2016.39(Suppl 1). Performed By: #### 2 4323-8, 65976-0, 6-3 ####[facility] LABIA [id number] [address] [address] [place] Potassium [Moles/Vol] 4.0 mmol/L Normal 3.7-5.1 [facility] Comment on above: Order Comment: Speci men Type: BLOOD SPECIMENOrdering Facility: [facility] Address: [address] [place] [address] Performed By: #### 2 4323-8, 12374-6, 3 ####[facility] LABCLIA [id number] [address] [address] [place] Protein [Mass/Vol] 8.4 g/dL High 6.3-8.0 [facility] Comment on above: Order Comment: Speci men Type: BLOOD SPECIMENOrdering Facility: [facility] Address: [address] [place] [address] Performed By: #### 2 4323-8, 60933-8, 3015-09 ####[facility] LABCLIA [id number] [place] [id number] [place] Sodium [Moles/Vol] 132 mmol/L Low 136-144 [facility] Comment on above: Order Comment: Speci men Type: BLOOD SPECIMENOrdering Facility: [facility] Address: [address] [place] [address] Performed By: #### 2 4323-8, 60044-2, 3 ####[facility] LABCLIA [id number] [place] [id number] [place] Urea nitrogen [Mass/Vol] 18 mg/dL Normal 7-21 [facility] Comment on above: Order Comment: Speci men Type: BLOOD SPECIMENOrdering Facility: [facility] Address: [address] [place] [address] Performed By: #### 2 4323-8, 98759-0, 3 ####[facility] LABCLIA [id number] [address] [address] [place] HbA1c (Bld)on 08-08-2024 Average glucose Estimated from glycated hemoglobin (Bld) [Mass/Vol] 140 mg/dL Normal [facility] Comment on above: Order Comment: Speci men Type: BLOOD SPECIMENOrdering Facility: [facility] Address: [address] [place] [address] Result Comment: eAG: (Estimated average glucose) is a calculated value from HgbA1c and is labor union business representative of the average blood glucose level in the last 2-3 month period. Performed By: #### 5 5454-3 ####[facility] LABCLIA [id number] [place] [address] [place] HbA1c (Bld) [Mass fraction] 6.5 % High 4.3-5.6 [facility] Comment on above: Order Comment: Speci men Type: BLOOD SPECIMENOrdering Facility: [facility] Address: [address] [place] [address] Result Comment: [place] Diabetes Association guidelines indicate that patients with HgbA1c in the range 5.7-6.4% are at increased risk for development of diabetes, and intervention by lifestyle modification may be beneficial. HgbA1c greater or equal to 6.5% is considered diagnostic of diabetes. Performed By: #### 5 5454-3 ####[facility] LABCLIA [id number] [place] [address] [place] Lipid 1996 panelon 5 Cholesterol [Mass/Vol] 140 mg/dL Normal <200 [facility] Comment on above: Order Comment: Speci men Type: BLOOD SPECIMENOrdering Facility: [facility] Address: [address] [place] [address] Result Comment: <200 mg/dL, Desirable 200-239 mg/dL, Borderline high >239 mg/dL, High Performed By: #### 2 4323-8, 73566-4, 3016-3 ####[facility] LABCLIA [id number] [place] [address] [place] Cholesterol in HDL [Mass/Vol] 35 mg/dL Low >39 [facility] Comment on above: Order Comment: Speci men Type: BLOOD SPECIMENOrdering Facility: [facility] Address: [address] [place] [address] Result Comment: 40-5 9 mg/dL, Acceptable >59 mg/dL, High: Negative risk factor for coronary heart disease <40 mg/dL, Low: Positive risk factor for coronary heart disease Performed By: #### 2 4323-8, 69040-3, 6-3 ####[facility] LABCLIA [id number] [address] [address] [place] Cholesterol in LDL [Mass/Vol] 81 mg/dL Normal <100 [facility] Comment on above: Order Comment: Speci men Type: BLOOD SPECIMENOrdering Facility: [facility] Address: [address] [place] [address] Result Comment: <100 mg/dL, Optimal 100-129 mg/dL, Near optimal/above optimal 130-159 mg/dL, Borderline high 160-189 mg/dL, High >189 mg/dL, Very high Secondary prevention optimal LDL Cholesterol levels are recommended to be < 70 mg/dL Performed By: #### 2 4323-8, 20550-0, 3015-3 ####[facility] LABCLIA [id number] [address] [address] [place] Cholesterol in LDL/Cholesterol in HDL [Mass ratio] 2.31 {ratio} Normal <2.54 [facility] Comment on above: Order Comment: Speci men Type: BLOOD SPECIMENOrdering Facility: [facility] Address: [address] [place] [address] Result Comment: Rivka moreno: 1. National Cholesterol Education Program ATP III Guideline At-A-Glance Quick Desk Reference: National Heart, Lung, and Blood [place]. National Institutes of Health. 2001: NIH Publication No. 01-3305. 2. An International Atherosclerosis Society position paper: global recommendations for the management of dyslipidemia: executive summary, Atherosclerosis. 2014: 232(2):410-413. Performed By: #### 2 4323-8, 79956-2, 3015-3 ####[facility] LABCLIA [id number] [address] [address] [place] Cholesterol in VLDL [Mass/Vol] 24 mg/dL Normal <30 [facility] Comment on above: Order Comment: Speci men Type: BLOOD SPECIMENOrdering Facility: [facility] Address: [address] [place] [address] Performed By: #### 2 4323-8, 57658-8, 3015-3 ####[facility] LABCLIA [id number] [place] [address] [place] Cholesterol non HDL [Mass/Vol] 105 mg/dL Normal <130 [facility] Comment on above: Order Comment: Speci men Type: BLOOD SPECIMENOrdering Facility: [facility] Address: [address] [place] [address] Result Comment: <130 mg/dL, Optimal 130-159 mg/dL, Near optimal/above optimal 160-189 mg/dL, Borderline high 190-219 mg/dL, High >219 mg/dL, Very high Secondary prevention optimal non HDL Cholesterol levels are recommended to be <100 mg/dL Performed By: #### 2 4323-8, 13178-2, 3015-3 ####[facility] LABCLIA [id number] [place] [address] [place] Cholesterol.total/Viola sterol in HDL [Mass ratio] 4.00 {ratio} Normal <5.10 [facility] Comment on above: Order Comment: Speci men Type: BLOOD SPECIMENOrdering Facility: [facility] Address: [address] [place] [address] Performed By: #### 2 4323-8, 30760-1, 3 ####[facility] LABCLIA [id number] [place] [id number] [place] FASTING TIME 12 hrs Normal [facility] Comment on above: Order Comment: Speci men Type: BLOOD SPECIMENOrdering Facility: [facility] Address: [address] [place] [address] Performed By: #### 2 4323-8, 87304-5, 3015-3 ####[facility] LABCLIA [id number] [place] [address] [place] Triglyceride [Mass/Vol] 120 mg/dL Normal <150 [facility] Comment on above: Order Comment: Speci men Type: BLOOD SPECIMENOrdering Facility: [facility] Address: [address] [place] [address] Result Comment: <150 mg/dL, Normal 150-199 mg/dL, Borderline high 200-499 mg/dL, High >499 mg/dL, Very high Performed By: #### 2 4323-8, 24986-7, 3016-3 ####[facility] LABIA [id number] [place] [address] [place] TSH SerPl-aCncon 08-08-2024 TSH Qn 3.330 m[IU]/L Normal 0.270-4.200 [facility] Comment on above: Order Comment: Speci men Type: BLOOD SPECIMENOrdering Facility: [facility] Address: [address] [place] [address] Performed By: #### 2 4323-8, 53695-9, 3016-3 ####[facility] [id number] [address] [place] CNPKassidy 05-24-2024 [facility]TON[facility] ([id number]) 1940 F Date Time Provider Department 05/24/24 VICTOR M ROCHA [facility] During your visit today, we recorded the following information about you: Kandi Woody MA 05/24/2024 1:22 PM Signed Type of letter/form/fax request - Overnight Pulse Ox order Form received from fax on 1 floor and placed on MD desk (Dr. Rocha) for completion. Completed [place] [facility] [place] [phone]. [facility] [place] order to complete an overnight pulse oximetry report on room air for pt. Route to [place] when form completed for processing Kandi Woody MA 05/24/2024 3:01 PM Signed Faxed. Kandi Woody MA Allergies As of Date: 05/24/2024 Noted Allergy Reaction POISON FANY 10/17/2005 SULFA (SULFONAMIDE ANTIBIOTICS) 10/17/2005 4 - Hives Date Reviewed: 04/06/2024 Reviewed by: Jasmina Ramos LPN - Fully Assessed Reason for Visit: Forms [981] Cmt[place] [facility] Over[place] pulse oximetry on room air Prescriptions as of 05/24/2024 - glimepiride (AMARYL) 4 mg tablet Take 0.5 tablets by mouth daily with breakfast. - busPIRone (BUSPAR) 15 mg tablet Take 1 tablet by mouth three times a day. - losartan (COZAAR) 100 mg tablet Take 100 mg by mouth once daily. - potassium chloride ER (KLOR-CON) 20 mEq tablet Take two tablets by mouth once daily. - omeprazole (PRILOSEC) 40 mg capsule Take 1 capsule by mouth once daily. - oxyCODONE-acetaminoph en (PERCOCET) 5-325 mg tablet TAKE 1 TO 2 TABLETS BY MOUTH EVERY 6 HOURS FOR PAIN - furosemide (LASIX) 40 mg tablet Take 1 tablet by mouth once daily. - metoprolol succinate ER (TOPROL XL) 50 mg 24 hr tablet Take 50 mg by mouth once daily. - nitroglycerin sublingual (NITROSTAT) 0.4 mg SL tablet Dissolve 1 tablet under the tongue every 5 minutes as needed for chest pain. - tiZANidine (ZANAFLEX) 4 mg tablet Take 1 tablet by mouth every 8 hours as needed (muscle spasms). - levothyroxine (SYNTHROID) 100 mcg tablet Take 1 tablet by mouth once daily. - empagliflozin (JARDIANCE) 10 mg tablet Take 1 tablet by mouth once daily. Take 1 tablet once daily in the morning - amitriptyline (ELAVIL) 50 mg tablet Take 1 tablet by mouth daily at bedtime. - ketotifen fumarate (ALAWAY) 0.025 % (0.035 %) ophthalmic solution Use 1 Drop in both eyes twice daily. - blood sugar diagnostic (ONETOUCH VERIO TEST STRIPS) test strip TEST BLOOD SUGAR ONCE DAILY - lancets (ONE TOUCH DELICA) 33 gauge Test blood sugar(s) 1 daily. Dx: Other DM Code E 11.29 Insulin: No - amLODIPine (NORVASC) 10 mg tablet Take 1 tablet by mouth once daily. - rivaroxaban (XARELTO) 20 mg tablet Take 20 mg by mouth daily with dinner. - simvastatin (ZOCOR) 20 mg tablet Take 20 mg by mouth daily at bedtime. - acetaminophen (TYLENOL EXTRA STRENGTH) 500 mg ORAL tablet Take 2 tablets by mouth every 4 hours as needed. Meds Comments as of 04/24/2022: Using Voltaren Gel prn for knee pain. 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 [place]* Essential hypertension, benign [I10] 08/13/2011 S/P angioplasty with stent 11/13/2012 Backache, unspecified [M54.9] 11/08/2013 GERD (gastroesophageal reflux disease) [K21.9] 10/03/2014 Paroxysmal atrial fibrillation (HCC) [I48.0] 09/18/2015 Pacemaker [Z95.0] 09/18/2015 Iron deficiency anemia [D50.9] 08/19/2016 Malabsorption of iron [K90.9] 08/19/2016 12/01/2016 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 Hypothyroidism [E03.9] 12/01/2016 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*06/08/2017 Stage 3a chronic kidney disease (HCC) [N18.31] 12/14/2017 Hypertensive kidney disease with stage 3a chron*04/09/2021 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/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*04/09/2021 Osteoporosis with current pathological fracture*09/09/2021 Tremor [R25.1] 01/14/2022 Benign essential tremor [G25.0] 01/14/2022 Benign neoplasm of meninges, unspecified (HCC) *12/11/2022 10/30/2023 Secondary pulmonary arterial hypertension (HCC)*12/11/2022 Stage 3b chronic kidney disease (HCC) [N18.32] 10/30/2023 Chronic diastolic CHF (congestive heart failure*12/24/2023 Encounter Status:Closed by KANDI WOODY on 05/24/24 [facility] 05-16-2024 CNPN Telephone ([facility]) ANTONIO GUPTA ([id number]) 1940 F Date Time Provider Department 05/16/24 VICTOR M ROCHA [facility] During your visit today, we recorded the following information about you: Gisselle Banda LPN 05/16/2024 12:24 PM Signed PATIENT calling stating that she finished a pill bottle and threw away the empty bottle and does not know what med it was. PATIENT is worried that she is needing to take this med but delong not know which it is. This nurse went over her hospital meds and current meds in chart and her meds that she has at home. We are not sure what meds that it maybe. Advised patient to call her concrete block layer to go over her meds from them to see if it maybe their meds. Patient will call back if needed. ADRIEL Bullock Mark D, MD 05/16/2024 2:28 PM Signed Noted Victor M Rocha MD Allergies As of Date: 05/16/2024 Noted Allergy Reaction POISON FANY 10/17/2005 SULFA (SULFONAMIDE ANTIBIOTICS) 10/17/2005 4 - Hives Date Reviewed: 04/06/2024 Reviewed by: Jasmina Ramos LPN - Fully Assessed Reason for Visit: Patient Question [1477] Cmt: patient took last of medication and threw away empty bottle and is not sure which med is Prescriptions as of 05/16/2024 - glimepiride (AMARYL) 4 mg tablet Take 0.5 tablets by mouth daily with breakfast. - busPIRone (BUSPAR) 15 mg tablet Take 1 tablet by mouth three times a day. - losartan (COZAAR) 100 mg tablet Take 100 mg by mouth once daily. - potassium chloride ER (KLOR-CON) 20 mEq tablet Take two tablets by mouth once daily. - omeprazole (PRILOSEC) 40 mg capsule Take 1 capsule by mouth once daily. - oxyCODONE-acetaminoph en (PERCOCET) 5-325 mg tablet TAKE 1 TO 2 TABLETS BY MOUTH EVERY 6 HOURS FOR PAIN - furosemide (LASIX) 40 mg tablet Take 1 tablet by mouth once daily. - metoprolol succinate ER (TOPROL XL) 50 mg 24 hr tablet Take 50 mg by mouth once daily. - nitroglycerin sublingual (NITROSTAT) 0.4 mg SL tablet Dissolve 1 tablet under the tongue every 5 minutes as needed for chest pain. - tiZANidine (ZANAFLEX) 4 mg tablet Take 1 tablet by mouth every 8 hours as needed (muscle spasms). - levothyroxine (SYNTHROID) 100 mcg tablet Take 1 tablet by mouth once daily. - empagliflozin (JARDIANCE) 10 mg tablet Take 1 tablet by mouth once daily. Take 1 tablet once daily in the morning - amitriptyline (ELAVIL) 50 mg tablet Take 1 tablet by mouth daily at bedtime. - ketotifen fumarate (ALAWAY) 0.025 % (0.035 %) ophthalmic solution Use 1 Drop in both eyes twice daily. - blood sugar diagnostic (SwipeClockTOUCH VERIO TEST STRIPS) test strip TEST BLOOD SUGAR ONCE DAILY - lancets (ONE TOUCH DELICA) 33 gauge Test blood sugar(s) 1 daily. Dx: Other DM Code E 11.29 Insulin: No - amLODIPine (NORVASC) 10 mg tablet Take 1 tablet by mouth once daily. - rivaroxaban (XARELTO) 20 mg tablet Take 20 mg by mouth daily with dinner. - simvastatin (ZOCOR) 20 mg tablet Take 20 mg by mouth daily at bedtime. - acetaminophen (TYLENOL EXTRA STRENGTH) 500 mg ORAL tablet Take 2 tablets by mouth every 4 hours as needed. Meds Comments as of 04/24/2022: Using Voltaren Gel prn for knee pain. 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 [place]* Essential hypertension, benign [I10] 08/13/2011 S/P angioplasty with stent 11/13/2012 Backache, unspecified [M54.9] 11/08/2013 GERD (gastroesophageal reflux disease) [K21.9] 10/03/2014 Paroxysmal atrial fibrillation (HCC) [I48.0] 09/18/2015 Pacemaker [Z95.0] 09/18/2015 Iron deficiency anemia [D50.9] 08/19/2016 Malabsorption of iron [K90.9] 08/19/2016 12/01/2016 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 Hypothyroidism [E03.9] 12/01/2016 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*06/08/2017 Stage 3a chronic kidney disease (HCC) [N18.31] 12/14/2017 Hypertensive kidney disease with stage 3a chron*04/09/2021 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 Normal [facility] CNPNon 05-13-2024 CNPN Telephone ([facility]) ANTONIO GUPTA ([id number]) 1940 F Date Time Provider Department 05/13/24 [facility] your visit today, we recorded the following information about you: Cara Herring MA 05/13/2024 2:33 PM Signed Type of form: Stop Anticoagulant prior to to pain management procedure. [facility]. Pt takes Xarelto daily, asking to be off two days prior to procedure. Form received via fax When form is completed, Fax form to [phone] Form has been forwarded to Physician Desk: Dr. Rocha. JEFERSON Little Mark D, MD 05/13/2024 5:28 PM Signed Form done MD Bong Taylor Kathryn, MA 05/16/2024 9:41 AM Signed Faxed. JEFERSON Jackson Rilee, [place] 2024 9:27 AM Signed Form has still not gone through. Our office contacted [facility] to ask if this was received, it was not. Asked for alternative fax number, which they do not have, only email. Form has been mailed to there office due to how many failed submissions this office has tried. Cara Herring MA Allergies As of Date: 05/13/2024 Noted Allergy Reaction POISON FANY 10/17/2005 SULFA (SULFONAMIDE ANTIBIOTICS) 10/17/2005 4 - Hives Date Reviewed: 04/06/2024 Reviewed by: Jasmina Ramos LPN - Fully Assessed Reason for Visit: Forms [913] Cmt: [facility] Prescriptions as of 2024 - glimepiride (AMARYL) 4 mg tablet Take 0.5 tablets by mouth daily with breakfast. - busPIRone (BUSPAR) 15 mg tablet Take 1 tablet by mouth three times a day. - losartan (COZAAR) 100 mg tablet Take 100 mg by mouth once daily. - potassium chloride ER (KLOR-CON) 20 mEq tablet Take two tablets by mouth once daily. - omeprazole (PRILOSEC) 40 mg capsule Take 1 capsule by mouth once daily. - oxyCODONE-acetaminoph en (PERCOCET) 5-325 mg tablet TAKE 1 TO 2 TABLETS BY MOUTH EVERY 6 HOURS FOR PAIN - furosemide (LASIX) 40 mg tablet Take 1 tablet by mouth once daily. - metoprolol succinate ER (TOPROL XL) 50 mg 24 hr tablet Take 50 mg by mouth once daily. - nitroglycerin sublingual (NITROSTAT) 0.4 mg SL tablet Dissolve 1 tablet under the tongue every 5 minutes as needed for chest pain. - tiZANidine (ZANAFLEX) 4 mg tablet Take 1 tablet by mouth every 8 hours as needed (muscle spasms). - levothyroxine (SYNTHROID) 100 mcg tablet Take 1 tablet by mouth once daily. - empagliflozin (JARDIANCE) 10 mg tablet Take 1 tablet by mouth once daily. Take 1 tablet once daily in the morning - amitriptyline (ELAVIL) 50 mg tablet Take 1 tablet by mouth daily at bedtime. - ketotifen fumarate (ALAWAY) 0.025 % (0.035 %) ophthalmic solution Use 1 Drop in both eyes twice daily. - blood sugar diagnostic (ONETOUCH VERIO TEST STRIPS) test strip TEST BLOOD SUGAR ONCE DAILY - lancets (ONE TOUCH DELICA) 33 gauge Test blood sugar(s) 1 daily. Dx: Other DM Code E 11.29 Insulin: No - amLODIPine (NORVASC) 10 mg tablet Take 1 tablet by mouth once daily. - rivaroxaban (XARELTO) 20 mg tablet Take 20 mg by mouth daily with dinner. - simvastatin (ZOCOR) 20 mg tablet Take 20 mg by mouth daily at bedtime. - acetaminophen (TYLENOL EXTRA STRENGTH) 500 mg ORAL tablet Take 2 tablets by mouth every 4 hours as needed. Meds Comments as of 04/24/2022: Using Voltaren Gel prn for knee pain. 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* Atherosclerotic heart disease of [place] coronar* Essential hypertension, benign [I10] 08/13/2011 S/P angioplasty with stent 11/13/2012 Backache, unspecified [M54.9] 11/08/2013 GERD (gastroesophageal reflux disease) [K21.9] 10/03/2014 Paroxysmal atrial fibrillation (HCC) [I48.0] 09/18/2015 Pacemaker [Z95.0] 09/18/2015 Iron deficiency anemia [D50.9] 08/19/2016 Malabsorption of iron [K90.9] 08/19/2016 12/01/2016 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 Hypothyroidism [E03.9] 12/01/2016 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 Normal [facility] Pacemaker Checkon 04-18-2024 Pacemaker Check [facility] [address] [place], [place] [address] Pacemaker Check Date of Service: 04/18/24 110 MR#: [id number] Acct: [id number] Name: ANTONIO GUPTA Rep #: [id number] : 1940 From: Marni Waldron Age/Sex: 83/F Location: [facility] Status: Signed Billing Codes PM Device Codes: 21081 PM Dev Prog Eval, Dual Assessment and Plan Assessment and Plan (1) Paroxysmal atrial fibrillation: Status: Chronic Comment: AV node ablation 03/31/2016 (2) Presence of cardiac pacemaker: Status: Chronic Comment: PPM generator change on 04/11/2024. (3) Sick sinus syndrome: Status: Chronic 04/18/24 1106 Date Marni Florianigncabrera Signature: Date (if applicable) CC: Normal [facility] Protime w/INR Fingerstickon 04-12-2024 INR Coag (PPP) [Relative time] 1.7 {INR} Normal [facility] Comment on above: Result Comment: Crit ical Value > 4.0 Performed By: #### L 501.9220, L500.4050, L503.6620, L100.0100 #### [facility] Laboratory [address] [place], [place], [address] Protime [place] 17.8 SEC High 11.7-14.[address] [facility] Comment on above: Performed By: #### L 501.4020, L500.4050, L503.6620, L100.0100 #### [facility] [address] [place], [address] TXT:Device Implant / Explant on 04-12-2024 TXT:Device Implant / Explant [facility] Imaging Services [address] [place] [address] TXT:Device Implant / Explant MR#: [id number] Acct: [id number] Name: ANTONIO GUPTA Rep #: [id number] : 1940 83 From: Vinny Root MD PCP: Dr. Victor M Rocha MD Status:DEP [facility] Patient: ANTONIO GUPTA Study Date: 04/11/2024 Performing: Vinny Root MD : 1940 Age: 83 Gender: female PROCEDURES PERFORMED LP07-([id number])BATTERY REMOVAL+REPLACEMENT PACER-DUAL LEAD INDICATIONS End-of-life replacement indicator PROCEDURE DETAILS The patient was brought to the Catheterization Lab in the postabsorptive nonsedated state. Informed consent was obtained prior to the procedure. Local anesthetic was given subcutaneously to the left subclavian region with Lidocaine 2%. Incision was made to the left subclavicular area. PPM generator was removed. PPM generator was attached to the lead(s) and inserted into the pocket. PPM generator was then interrogated by the clinical programmer. PPM ventricular lead (existing) was checked and tested. PPM atrial lead (existing) was checked and tested. Device pocket was irrigated with antibiotic. Subcutaneous closure was completed with 3-0 Vicryl. Skin closure was completed with 4-0 Vicryl. The patient tolerated the procedure well. Estimated Blood Loss: 5 ml's IMPLANTED / EX-PLANTED DEVICES IMPLANTED DEVICE(S): PPM Generator - [employer]: [employer], Model # Assurity MRI , Serial # [id number] DEVICE PARAMETERS DEVICE PARAMETERS: Mode- DOO Lower rate- 70 Upper rate- 120 CONCLUSIONS / RECOMMENDATIONS Device Conclusions: Successful implantation of a dual chamber pacemaker battery change and replacement Device Recommendations: Follow up with Primary Care Physician PROCEDURE MEDICATIONS Fentanyl 25 mcg IV Versed 1 mg IV Fentanyl 25 mcg IV Oxygen: 2 L/min via nasal cannula Antibiotic given in appropriate timeframe. Ancef 2 Gm IV @ 04/11/2024 13:12:04 Signed By Vinny Root MD On 04/12/2024 13:29:24 Signed By Vinny Root MD On 04/11/2024 13:51:27 Vinny Root MD 04/12/24 1330 Date Vinny Root MD Cosigner Signature: Date (if indicated) CC: Dr. Vinny Root MD; Dr. Victor M Rocha MD Date Dictated: 04/11/24 1319 Date Transcribed: 04/12/24 1329 Derrick Follower: CO Signed Normal [facility] Urinalysis, Routine (Dipstic k)on 04-11-2024 BILIRUBIN URINE Negative Normal Negative [facility] Comment on above: Order Comment: 'TROP ' Serial specimen #1, #2 or #3: 1 Performed By: #### L 501.4020, L500.4050, L503.6620, L100.0100 #### [facility] [address] [place], [place], [address] Clarity (U) Clear Normal Clear [facility] Comment on above: Order Comment: 'TROP ' Serial specimen #1, #2 or #3: 1 Performed By: #### L 501.4020, L500.4050, L503.6620, L100.0100 #### [facility] [address] [place], [address] Color (U) Yellow Normal Yellow [facility] Comment on above: Order Comment: 'TROP ' Serial specimen #1, #2 or #3: 1 Performed By: #### L 501.4020, L500.4050, L503.6620, L100.0100 #### [facility] [address] [place], [address] GLUCOSE, UR 250 mg/dl Abnormal Normal [facility] Comment on above: Order Comment: 'TROP ' Serial specimen #1, #2 or #3: 1 Performed By: #### L 501.4020, L500.4050, L503.6620, L100.0100 #### [facility] [address] [place], [address] KETONE UR Negative Normal Negative [facility] Comment on above: Order Comment: 'TROP ' Serial specimen #1, #2 or #3: 1 Performed By: #### L 501.4020, L500.4050, L503.6620, L100.0100 #### [facility] [address] [place], [address] LEUK ESTERASE 25 /ul Abnormal Negative [facility] Comment on above: Order Comment: 'TROP ' Serial specimen #1, #2 or #3: 1 Performed By: #### L 501.4020, L500.4050, L503.6620, L100.0100 #### [facility] [address] [place], [address] Nitrite Ql (U) Negative Normal Negative [facility] Comment on above: Order Comment: 'TROP ' Serial specimen #1, #2 or #3: 1 Performed By: #### L 501.4020, L500.4050, L503.6620, L100.0100 #### [facility] [address] [place], [address] OCCULT BLOOD-UR Negative Normal Negative [facility] Comment on above: Order Comment: 'TROP ' Serial specimen #1, #2 or #3: 1 Performed By: #### L 501.4020, L500.4050, L503.6620, L100.0100 #### [facility] [address] [place], [address] pH UR 7.0 Normal 5.0 - 8.[address] [facility] Comment on above: Order Comment: 'TROP ' Serial specimen #1, #2 or #3: 1 Performed By: #### L 501.4020, L500.4050, L503.6620, L100.0100 #### [facility] [address] [place], [address] PROT DIPSTX 30 mg/dl Abnormal Negative [facility] Comment on above: Order Comment: 'TROP ' Serial specimen #1, #2 or #3: 1 Performed By: #### L 501.4020, L500.4050, L503.6620, L100.0100 #### [facility] [address] [place], [address] SP.GR. DIPSTX 1.010 Normal 1.002-1.[address] [facility] Comment on above: Order Comment: 'TROP ' Serial specimen #1, #2 or #3: 1 Performed By: #### L 501.4020, L500.4050, L503.6620, L100.0100 #### [facility] [address] [place], [address] UROBILI Normal Normal Normal [facility] Comment on above: Order Comment: 'TROP ' Serial specimen #1, #2 or #3: 1 Performed By: #### L 501.4020, L500.4050, L503.6620, L100.0100 #### [facility] [address] [place], [address] CNOVon 04-06-2024 CNOV Office Visit ([facility] ) ANTONIO UGPTA ([id number]) 1940 F Date Time Provider Department 04/06/24 11:40 AM YOVANA PAINTER During your visit today, we recorded the following information about you: Pulse Respiration Blood pressure Weight 90/minute 16/minute 127/77 83.8 kg Yovana Painter APRN.[employer] SALES MANAGER 04/06/2024 5:02 PM Signed This is a 83 year old female who presents today with: Patient presents with: Follow Up: Hosp follow up for CHF HISTORY OF PRESENT ILLNESS: Antonio Gupta is a 83 year old female. Patient presents with: Follow Up: Hosp follow up for CHF HOSPITAL/ER FOLLOW UP: Reason for visit: SOB, oncologist called, pulse ox was 82% in office. Which facility: [facility] Date of visit: 03/25/2024-03/29/2024 Diagnosis: Acute exacerbation of CHF, heart failure, coronary artery disease Testing done: Chest x-ray reveals congestive heart failure with atelectasis right greater than left. There is a pleural effusion noted on the left. BNP mildly elevated from baseline. Treatment given: Placed on high flow oxygen. Nitroglycerin drip was added. Gave additional Lasix. Troponin normal. Consulted with cardiology. Repeat echo showed ejection fraction 45 to 50%. 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 Plan is for bone marrow biopsy and further imaging. Instructed to take potassium 40 mEq daily for low potassium. Stop taking amlodipine. Follow-up with cardiology in 1 to 2 weeks. Current symptoms: Had follow up with Cardiology yesterday, refers that repeat chest xray was normal. Labs repeated yesterday, potassium WNL. Refers that they will be replacing pace maker next week. Still some mild SOB. Taking Lasix 40 mg daily. Refers that she does not want to do any additional testing with Oncology in regards to the monoclonal gammopathy. PAST MEDICAL HISTORY: PAST MEDICAL HISTORY Diagnosis Date Coronary atherosclerosis of unspecified type of vessel, [place] or graft Stent x 2010 Depressive disorder, not elsewhere classified Diverticulosis of colon (without mention of hemorrhage) Essential hypertension, benign Heart attack (HCC) Other and unspecified hyperlipidemia Palpitations Paroxysmal atrial fibrillation (HCC) PAST SURGICAL HISTORY Procedure Laterality Date APPENDECTOMY COLONOSCOPY FLX DX W/COLLJ SPEC WHEN PFRMD 1998 Colonoscopy repeat 10 years COLONOSCOPY FLX DX W/COLLJ SPEC WHEN PFRMD 05/18/12 Colonoscopy COLSC FLX W/REMOVAL LESION BY HOT BX FORCEPS 09/15/2016 EGD REMOVAL TUMOR POLYP/OTHER LESION SNARE TECH 09/15/2016 HEART SURGERY HX 09/2010 stents inserted LEFT HEART CATH,PERCUTANEOUS 2010 Cardiac cath, L heart PACEMAKER IMPLANT 04/2015 PERC TRANSL COR ANGIO 2010 Percutaneous Transluminal Coronary Angio Status SVT ABLATION W/ EP COMPLETE 03/31/2016 Dr. Buitrago TOTAL ABDOMINAL HYSTERECT W/WO RMVL TUBE OVARY 1985 Hysterectomy, ROSALIO W TRY ATRIOGRM HP ALLERGIES Poison Fany and Sulfa (Sulfonamide Antibiotics) MEDICATIONS Current Outpatient Medications Medication Sig potassium chloride ER (KLOR-CON) 20 mEq tablet Take two tablets by mouth once daily. omeprazole (PRILOSEC) 40 mg capsule Take 1 capsule by mouth once daily. oxyCODONE-acetaminoph en (PERCOCET) 5-325 mg tablet TAKE 1 TO 2 TABLETS BY MOUTH EVERY 6 HOURS FOR PAIN furosemide (LASIX) 40 mg tablet Take 1 tablet by mouth once daily. glimepiride (AMARYL) 4 mg tablet Take 0.5 tablets by mouth daily with breakfast. metoprolol succinate ER (TOPROL XL) 50 mg 24 hr tablet Take 50 mg by mouth once daily. nitroglycerin sublingual (NITROSTAT) 0.4 mg SL tablet Dissolve 1 tablet under the tongue every 5 minutes as needed for chest pain. tiZANidine (ZANAFLEX) 4 mg tablet Take 1 tablet by mouth every 8 hours as needed (muscle spasms). levothyroxine (SYNTHROID) 100 mcg tablet Take 1 tablet by mouth once daily. empagliflozin (JARDIANCE) 10 mg tablet Take 1 tablet by mouth once daily. Take 1 tablet once daily in the morning amitriptyline (ELAVIL) 50 mg tablet Take 1 tablet by mouth daily at bedtime. busPIRone (BUSPAR) 15 mg tablet Take 1 tablet by mouth three times a day. ketotifen fumarate (ALAWAY) 0.025 % (0.035 %) ophthalmic solution Use 1 Drop in both eyes twice daily. blood sugar diagnostic (ONETOUCH VERIO TEST STRIPS) test strip TEST BLOOD SUGAR ONCE DAILY lancets (ONE TOUCH DELICA) 33 gauge Test blood sugar(s) 1 daily. Dx: Other DM Code E 11.29 Insulin: No amLODIPine (NORVASC) 10 mg tablet Take 1 tablet by mouth once daily. rivaroxaban (XARELTO) 20 mg tablet Take 20 mg by mouth daily with dinner. simvastatin (ZOCOR) 20 mg tablet Take 20 mg by mouth daily at bedtime. acetaminophen (TYLENOL EXTRA STRENGTH) 500 mg ORAL tablet Take 2 tablets by mouth every 4 hours as needed. No current facility-administered medications for this visit. FAMIL (more content not included)... Normal [facility] 12 Lead EKG performed by [facility] on 04-05-2024 12 Lead EKG performed by [address] [address] 12 Lead EKG performed by [facility] 04/05/24757 MR#: [id number] Acct: [id number] Name: ANTONIO GUPTA Rep #: [id number] : 1940 83 From: Amber Ramsey Attending Dr: LUIS FELIPE Steinberg Status: DEP AMB Ordering Dr: Amber Palafox Date: 03/14 11/03 Location: [facility] Sex: F C Admitted: [facility]/12 Lead EKG performed by [facility] ECG Report Interpretation -----Electronic ventricular pacemaker Pacemaker ECG, No further analysis INSUFFICIENT DATAElectronically signed on 04/05/2024 at 13:30 by Vinny Root Software Version [id number] 04/05/24 1335 Date Amber BRISCOE CC: Dr. Victor M Rocha MD Date Dictated: 09/757 Date Transcribed: 04/05/24757 Derrick Follower: MMM Signed Normal [facility] BNP,B-Type NATRIURETIC PEPTI Kiesha 04-05-2024 Natriuretic peptide B (Bld) [Mass/Vol] 433.7 pg/mL High 0-[address] [facility] Comment on above: Performed By: #### L 501.4020, L500.4050, L503.6620, L100.0100 #### [facility] [address] [place], [address] CBC-Complete Blood Cnt No Di ffon 04-05-2024 Erythrocyte distribution width (RBC) [Ratio] 16.3 % High 11.6-14.[address] [facility] Comment on above: Performed By: #### L 501.4020, L500.4050, L503.6620, L100.0100 #### [facility] [address] [place], [address] Hematocrit (Bld) [Volume fraction] 42.5 % Normal 37-[address] [facility] Comment on above: Performed By: #### L 501.4020, L500.4050, L503.6620, L100.0100 #### [facility] [address] [place], [address] Hemoglobin (Bld) [Mass/Vol] 12.8 g/dL Normal 12.0-15.[address] [facility] Comment on above: Performed By: #### L 501.4020, L500.4050, L503.6620, L100.0100 #### [facility] [address] [place], [address] MCH (RBC) [Entitic mass] 26.4 pg Low 27.0-32.[address] [facility] Comment on above: Performed By: #### L 501.4020, L500.4050, L503.6620, L100.0100 #### [facility] [address] [place], [address] MCHC (RBC) [Mass/Vol] 30.1 g/dL Low 32-36 [facility] Comment on above: Performed By: #### L 501.4020, L500.4050, L503.6620, L100.0100 #### [facility] [address] [place], [address] MCV (RBC) [Entitic vol] 87.6 fL Normal 81-99 [facility] Comment on above: Performed By: #### L 501.4020, L500.4050, L503.6620, L100.0100 #### [facility] [address] [place], [address] Platelet mean volume (Bld) [Entitic vol] 10.3 fL Normal 6.2-12.[address] [facility] Comment on above: Performed By: #### L 501.4020, L500.4050, L503.6620, L100.0100 #### [facility] [address] [place], [address] Platelets (Bld) [#/Vol] 412 10*3/uL Normal 150-[address] [facility] Comment on above: Performed By: #### L 501.4020, L500.4050, L503.6620, L100.0100 #### [facility] [address] [place], [address] RBC (Bld) [#/Vol] 4.85 10*6/uL Normal 4.2-5.4 [facility] Comment on above: Performed By: #### L 501.4020, L500.4050, L503.6620, L100.0100 #### [facility] [address] [place], [address] RDW SD 52.0 fl High 35.1-43.[address] [facility] Comment on above: Performed By: #### L 501.4020, L500.4050, L503.6620, L100.0100 #### [facility] [address] [place], [address] WBC (Bld) [#/Vol] 6.1 10*3/uL Normal 4.4-11.0 [facility] Comment on above: Performed By: #### L 501.4020, L500.4050, L503.6620, L100.0100 #### [facility] [address] [place], [address] CNPNon 04-05-2024 CNPN Telephone (MRIQ) ANTONIO GUPTA ([id number]) 1940 F Date Time Provider Department 04/05/24 PHAN GARZA MRIQ During your visit today, we recorded the following information about you: Phan Garza RT(R) 04/05/2024 12:35 PM Signed Helmaria esther, This patient has a cardiac device that is not FDA approved for MRI and is considered MRI non-conditional. If there is no alternative diagnostic exam that can answer the clinical question and the MRI exam is required to decide the best course of treatment for the patient, then the ordering clinician will need to follow the steps below: Contact the staff radiologist or MR physician for the type of MR exam requested to discuss possible alternative diagnostic imaging exam, the potential risks of the MR exam, and the benefits of the MR exam. If both ordering clinician and staff radiologist agree that the benefits of the MR exam outweigh the risks, please document in the patient?s EPIC chart and include the name of the radiologist with whom you spoke. [facility] Staff Rad: Neuro [phone] The potential risks of the MRI exam include any of the following: -Device malfunction which may or may not require surgical replacement -Cardiac arrhythmias from induced current in the leads -Heating of leads due to Radiofrequency which could cause hoyt -Dislodgement or movement of device Please follow up using this telephone encounter to let us know the discussion has taken place and we will get the patient scheduled for device interrogation, informed consent, and the MRI exam. If the exam is no longer wanted, please cancel the order in [facility]. Thank You, MR Imaging Education / MRI Safety Team Joshua Baker DO 04/05/2024 12:57 PM Signed Sorry. She will need a whole body PET rather than MRI. DO Bernarda Boyle Melanie, LPN 04/05/2024 1:18 PM Signed Patient is scheduled for PET scan 04/18/2024. ADRIEL Limon Stephanie 04/13/2024 4:35 PM Signed PET was cancelled on 04/05 and not rescheduled. Please advise if patient should be contacted to be rescheduled. (Per Care Everywhere, patient was in [facility] as of 04/11.) Belle Mehta LPN 04/13/2024 4:43 PM Signed No, patient does not need to be contacted to reschedule. Please see phone note from 04/01/2024. Patient has cancelled all testing/appointments with this office by choice. Belle Fajardo LPN Allergies As of Date: 04/05/2024 Noted Allergy Reaction POISON FANY 10/17/2005 SULFA (SULFONAMIDE ANTIBIOTICS) 10/17/2005 4 - Hives Date Reviewed: 04/01/2024 Reviewed by: Joshua Baker DO - Fully Assessed Reason for Visit: Radiology MRI [1487] Prescriptions as of 04/13/2024 - losartan (COZAAR) 100 mg tablet Take 100 mg by mouth once daily. - potassium chloride ER (KLOR-CON) 20 mEq tablet Take two tablets by mouth once daily. - omeprazole (PRILOSEC) 40 mg capsule Take 1 capsule by mouth once daily. - oxyCODONE-acetaminoph en (PERCOCET) 5-325 mg tablet TAKE 1 TO 2 TABLETS BY MOUTH EVERY 6 HOURS FOR PAIN - furosemide (LASIX) 40 mg tablet Take 1 tablet by mouth once daily. - glimepiride (AMARYL) 4 mg tablet Take 0.5 tablets by mouth daily with breakfast. - metoprolol succinate ER (TOPROL XL) 50 mg 24 hr tablet Take 50 mg by mouth once daily. - nitroglycerin sublingual (NITROSTAT) 0.4 mg SL tablet Dissolve 1 tablet under the tongue every 5 minutes as needed for chest pain. - tiZANidine (ZANAFLEX) 4 mg tablet Take 1 tablet by mouth every 8 hours as needed (muscle spasms). - levothyroxine (SYNTHROID) 100 mcg tablet Take 1 tablet by mouth once daily. - empagliflozin (JARDIANCE) 10 mg tablet Take 1 tablet by mouth once daily. Take 1 tablet once daily in the morning - amitriptyline (ELAVIL) 50 mg tablet Take 1 tablet by mouth daily at bedtime. - busPIRone (BUSPAR) 15 mg tablet Take 1 tablet by mouth three times a day. - ketotifen fumarate (ALAWAY) 0.025 % (0.035 %) ophthalmic solution Use 1 Drop in both eyes twice daily. - blood sugar diagnostic (HeadplayUCH VERIO TEST STRIPS) test strip TEST BLOOD SUGAR ONCE DAILY - lancets (ONE TOUCH DELICA) 33 gauge Test blood sugar(s) 1 daily. Dx: Other DM Code E 11.29 Insulin: No - amLODIPine (NORVASC) 10 mg tablet Take 1 tablet by mouth once daily. - rivaroxaban (XARELTO) 20 mg tablet Take 20 mg by mouth daily with dinner. - simvastatin (ZOCOR) 20 mg tablet Take 20 mg by mouth daily at bedtime. - acetaminophen (TYLENOL EXTRA STRENGTH) 500 mg ORAL tablet Take 2 tablets by mouth every 4 hours as needed. Meds Comments as of 04/24/2022: Using Voltaren Gel prn for knee pain. Problem List As Of Date 04/05/2024 Noted Resolved Contact dermatitis and other eczema, due to uns*10/17/2005 08/12/2010 Hyperlipidemia [E78.5] 07/20/2007 GOUT NOS [M10.9] 07/20/2007 Gastritis/duodenitis [K29.70, K29.90] 10/04/2008 08/13/2011 Routine general m (more content not included)... Normal [facility] Cardiology Visit Reporton Cardiology Visit Report [facility] [address] [place], [place] [id number] OFFICE VISIT Date of Service: 04/05/24 MR#: [id number] Acct: [id number] Name: ANTONIO GUPTA Rep #: [id number] : 1940 Provider: LUIS FELIPE Bills Age/Sex: 83/F Location: [facility] [place] Status: Signed HPI HPI History of Present Illness Details: ANTONIO GUPTA, is a 83 F who presents to the office today for an updated HPI for a generator change for her PPM. She has a history of coronary artery disease with angioplasty and stenting of the LAD and RCA in September 2010. She also has a history of hypertension, hyperlipidemia, paroxysmal atrial fibrillation and pacemaker placement following an AV isael ablation, and anemia. She does see Dr. Baker for her anemia. She did undergo a stress test in February 2022 demonstrating no evidence of ischemia. She was in the hospital in 12/2023 with acute respiratory failure with anemia. Echocardiogram demonstrated an EF of 55%, RSVP at 50 mmhg. She also has a lumbar compression fx. Patient was admitted to the hospital on 03/25/2024 for hypoxia and congestive heart failure. She was noted to have bilateral pleural effusions and slightly elevated BNP. This was similar to her hospital stay in December 2023. She does have multiple myeloma and is being followed by Dr. Baker. Echocardiogram demonstrated a decrease in her ejection fraction to 45 to 50%. With apical hypokinesis possibly consistent with Takotsubo's. Troponins remained negative. Pacemaker evaluation demonstrated that patient had less than 1 month battery life. There was a question of wether or not she needed to have a thoracentesis done, it appears that she was diuresed with IV lasix only. Pt is having pain in her rib cage pain, this started after her kyphoplasty. She is trying to work with pain management for this. Dr. Pham. She is struggling with this. Dr. Baker is trying to find out why she is anemic. She is sleeping in a bed on her side but not on her back d/t the pain. She forget her medication list. She was just d/c from the hospital so it should be current. Intake Vital Signs 03/26/24 12:50 04/05/24 09:24 04/05/24 09:26 Height 5 ft 8 in 5 ft 8 in 5 ft 8 in Weight: 184 lb BMI 27.9 BP 131/74 H Blood Pressure Location Lt brachial Position Sitting Respiration 18 Pulse 88 Pulse Source Monitor Pulse Oximetry (%) 92 Intake Visit Reasons: Update H P/ Gen Change 04/11/ Sees [facility] @ [facility] [employer] [facility] Required: No Is patient in pain?: No Allergies poison fany extract (Poison Fany Extract) Allergy (Verified 04/05/24 09:24) Rash Sulfa (Sulfonamide Antibiotics) Allergy (Verified 04/05/24 09:24) Hives Medications ???Medication ???Instructions ???Recorded ???Confirmed ???Type buspirone 15 mg tablet 15 mg PO BID ANXIETY 06/02/13 03/25/24 History omeprazole 40 mg capsule,delayed 40 mg PO DAILY ACID REFLUX 06/02/13 03/25/24 History release nitroglycerin 0.4 mg sublingual 0.4 mg sublingual Q5M PRN CHEST 04/21/15 03/25/24 History tablet PAIN glimepiride 4 mg tablet 2 mg PO DAILY DIABETES 01/24/22 03/25/24 History amitriptyline 50 mg tablet 50 mg PO QHS DEPRESSION 02/17/23 03/25/24 History empagliflozin 10 mg tablet 10 mg PO DAILY DIABETES 02/17/23 03/25/24 History (Jardiance) ketotifen fumarate 0.025 % (0.035 1 drp ophthalmic (eye) BID PRN 02/17/23 03/25/24 History %) eye drops (Alaway) ITCHING/ALLERGIES levothyroxine 100 mcg tablet 100 mcg PO DAILY THYROID 12/14/23 03/25/24 History (Synthroid) rivaroxaban 20 mg tablet (Xarelto) 20 mg PO DAILY BLOOD THINNER 12/14/23 04/05/24 History simvastatin 20 mg tablet 20 mg PO QHS CHOLESTEROL 12/14/23 03/25/24 History furosemide 40 mg tablet (Lasix) 40 mg PO DAILY water pill #60 tabs 12/17/23 03/29/24 Rx metoprolol succinate 50 mg 50 mg PO DAILY heart/BP #60 tabs 12/17/23 03/29/24 Rx tablet,extended release 24 hr losartan 100 mg tablet 100 mg PO DAILY blood pressure 09/13/24 09/17/24 History potassium chloride 20 mEq 40 meq (2 x 20 mEq) PO DAILYCM 30 03/29/24 Rx tablet,extended release(part/cryst) days #60 tabs Have you fallen in the past year?: No Nurse's Note: no medication list, does not know medications [facility] Medical History Iron deficiency anemia History of non-ST elevation myocardial infarction (NSTEMI) (2013) Longstanding persistent atrial fibrillation Essential (primary) hypertension Anxiety Hypothyroidism Hyperlipidemia Secondary pulmonary arterial hypertension Atherosclerosis of coronary artery of [place] heart without angina pectoris Paroxysmal atrial fibrillation Paroxysmal atrial flutter Sick sinus syndrome Surgical History History of (more content not included)... Normal [facility] Chest PA and Lateralon 04-05 Chest PA and Lateral [facility] Imaging Services [address] [place] [id number] Chest PA and Lateral MR#: [id number] Acct: [id number] Name: ANTONIO GUPTA Rep #: [id number] : 1940 F 83 From: Cortes Casillas MD PCP: Dr. Victor M Rocha MD Status: REG CLI Study: Chest PA and Lateral Date of Exam: 04/05/24 Exam# [id number] Ordering Dr: Amber Palafox [id number] STUDY: X-RAY CHEST REASON FOR EXAM: Female, 83 years old. Dyspnea on exertion. TECHNIQUE: Frontal and lateral views of the chest. COMPARISON: March 27, 2024 FINDINGS: Interval resolution of bilateral pleural effusions and compression atelectasis. There is no demonstrated pleural abnormality. Stable cardiomegaly with dual lead cardiac pacer. Normal mediastinum and radha. Normal visualized pulmonary arteries. Aortic tortuosity with calcification is unchanged. Thoracic osteopenia with anterior wedge compression deformity of a mid to lower thoracic vertebral body with kyphoplasty unchanged. Stable anterior wedge compression deformity of the T12 vertebral body. No abnormality of the visualized soft tissue structures of the upper abdomen. RAD/Chest PA and Lateral IMPRESSION: Cardiomegaly with radiographic improvement with resolution of pleural effusions. No emergent finding. Electronically Signed: Cortes Casillas MD at 11:08 EDT , CC: Dr. Victor M Rocha MD; LUIS FELIPE Steinberg Derrick Follower: Signed Normal [facility] Comprehensive Metabolic Prof ilon 04-05-2024 Albumin [Mass/Vol] 3.4 g/dL Normal 3.2-5.0 [facility] Comment on above: Performed By: #### L 501.4020, L500.4050, L503.6620, L100.0100 #### [facility] [address] [place], [address] Albumin/Globulin [Mass ratio] 0.6 {ratio} Low 0.9-2.[address] [facility] Comment on above: Performed By: #### L 501.4020, L500.4050, L503.6620, L100.0100 #### [facility] [address] [place], [address] ALK P 160 U/L High 45-[address] [facility] Comment on above: Performed By: #### L 501.4020, L500.4050, L503.6620, L100.0100 #### [facility] [address] [place], [address] ALT [Catalytic activity/Vol] 12 U/L Low 13-[address] [facility] Comment on above: Performed By: #### L 501.4020, L500.4050, L503.6620, L100.0100 #### [facility] [address] [place], [address] AST [Catalytic activity/Vol] 23 U/L Normal 15-[address] [facility] Comment on above: Result Comment: Slig ht Hemolysis, Result may be falsely increased. Performed By: #### L 501.4020, L500.4050, L503.6620, L100.0100 #### [facility] [address] [place], [address] Bilirubin [Mass/Vol] 0.60 mg/dL Normal 0.20-1.00 [facility] Comment on above: Result Comment: For patients on eltrombopag therapy, use of Dimension [place] TBIL is not recommended. Performed By: #### L 501.4020, L500.4050, L503.6620, L100.0100 #### [facility] [address] [place], [address] BUN/CRE 10.0 RATIO Normal 10-[address] [facility] Comment on above: Performed By: #### L 501.4020, L500.4050, L503.6620, L100.0100 #### [facility] [address] [place], [address] CA,Total 10.2 mg/dL High 8.5-10.[address] [facility] Comment on above: Performed By: #### L 501.4020, L500.4050, L503.6620, L100.0100 #### [facility] [address] [place], [address] Chloride [Moles/Vol] 103 mmol/L Normal 98-107 [facility] Comment on above: Performed By: #### L 501.4020, L500.4050, L503.6620, L100.0100 #### [facility] [address] [place], [address] CO2 [Moles/Vol] 26.0 mmol/L Normal 21.0-32.[address] [facility] Comment on above: Performed By: #### L 501.4020, L500.4050, L503.6620, L100.0100 #### [facility] [address] [place], [address] Creatinine [Mass/Vol] 1.30 mg/dL High 0.55-1.02 [facility] Comment on above: Result Comment: The validity of the calculated GFR GFRAA in patients over 70 years has not been determined. Clinical correlation is essential. Performed By: #### L 501.4020, L500.4050, L503.6620, L100.0100 #### [facility] [address] [place], [address] EST GFR - AA 50 mL/min Low >[address] [facility] Comment on above: Result Comment: Afri can [place] GFR Calc Performed By: #### L 501.4020, L500.4050, L503.6620, L100.0100 #### [facility] [address] [place], [address] GAP 5 Normal 5-[address] [facility] Comment on above: Performed By: #### L 501.4020, L500.4050, L503.6620, L100.0100 #### [facility] [address] [place], [address] GFR/1.73 sq M.predicted among non-blacks MDRD (S/P/Bld) [Vol rate/Area] 41 mL/min/{1.73_m2} Low >[address] [facility] Comment on above: Result Comment: Non- GFR Calc Performed By: #### L 501.4020, L500.4050, L503.6620, L100.0100 #### [facility] [address] [place], [address] Globulin (S) [Mass/Vol] 5.8 g/dL High 2.2-4.2 [facility] Comment on above: Performed By: #### L 501.4020, L500.4050, L503.6620, L100.0100 #### [facility] [address] [place], [address] Glucose [Mass/Vol] 103 mg/dL Normal 74-106 [facility] Comment on above: Result Comment: Fast ing Glucose result from 100 to 125 mg/dL suggests IMPAIRED HOMEOSTASIS per A.D.A. criteria. Performed By: #### L 501.4020, L500.4050, L503.6620, L100.0100 #### [facility] [address] [place], [address] Potassium [Moles/Vol] 4.0 mmol/L Normal 3.5-5.1 [facility] Comment on above: Result Comment: Slig ht Hemolysis, Result may be falsely increased. Performed By: #### L 501.4020, L500.4050, L503.6620, L100.0100 #### [facility] [address] [place], [address] Sodium [Moles/Vol] 134 mmol/L Low 136-145 [facility] Comment on above: Performed By: #### L 501.4020, L500.4050, L503.6620, L100.0100 #### [facility] [address] [place], [address] T PROT 9.2 g/dL High 6.4-8.[address] [facility] Comment on above: Performed By: #### L 501.4020, L500.4050, L503.6620, L100.0100 #### [facility] [address] [place], [address] Urea nitrogen [Mass/Vol] 13 mg/dL Normal 7-[address] [facility] Comment on above: Performed By: #### L 501.4020, L500.4050, L503.6620, L100.0100 #### [facility] [address] [place], [address] Pacemaker Checkon 04-05-2024 [address] [facility] [address] [place], [place] [address] Pacemaker Check Date of Service: 04/05/24 1425 MR#: [id number] Acct: [id number] Name: ANTONIO GUPTA Rep #: [id number] : 1940 From: Marni Waldron Age/Sex: 83/F Location: [facility] [place] Status: Signed Assessment and Plan Assessment and Plan (1) Acute exacerbation of CHF (congestive heart failure): Status: Chronic Qualifiers: Heart failure type: unspecified Qualified Code(s): I50.9 - Heart failure, unspecified (2) Acute hypoxemic respiratory failure: Status: Acute (3) Presence of cardiac pacemaker: Status: Resolved (4) Longstanding persistent atrial fibrillation: Status: Chronic Comment: AV node ablation 03/31/2016 04/05/24 142 Date Marni Guevara Signature: Date (if applicable) CC: Normal [facility] Basic Metabolic Profile (BMP )on 04-01-2024 BUN Normal -[address] [facility] Comment on above: Result Comment: Canc elled via OM: Order cancelled - Patient discharged Performed By: #### L 500.2500 #### [facility] [address] [place], [address] BUN/CRE Normal - [facility] Comment on above: Result Comment: Canc elled via OM: Order cancelled - Patient discharged Performed By: #### L 500.2500 #### [facility] [address] [place], [address] CA,Total Normal 8.5-10.[address] [facility] Comment on above: Result Comment: Canc elled via OM: Order cancelled - Patient discharged Performed By: #### L 500.2500 #### [facility] [address] [place], [address] CL Normal 98-[address] [facility] Comment on above: Result Comment: Canc elled via OM: Order cancelled - Patient discharged Performed By: #### L 500.2500 #### [facility] [address] [place], [address] CO2 Normal 21.0-32.[address] [facility] Comment on above: Result Comment: Canc elled via OM: Order cancelled - Patient discharged Performed By: #### L 500.2500 #### [facility] [address] [place], [address] CREAT,SERUM Normal 0.55-1.[address] [facility] Comment on above: Result Comment: Canc elled via OM: Order cancelled - Patient discharged Performed By: #### L 500.2500 #### [facility] [address] [place], [address] EST GFR Normal >[address] [facility] Comment on above: Result Comment: Canc elled via OM: Order cancelled - Patient discharged Performed By: #### L 500.2500 #### [facility] [address] [place], [address] EST GFR - AA Normal >[address] [facility] Comment on above: Result Comment: Canc elled via OM: Order cancelled - Patient discharged Performed By: #### L 500.2500 #### [facility] [address] [place], [address] GAP Normal 5-[address] [facility] Comment on above: Result Comment: Canc elled via OM: Order cancelled - Patient discharged Performed By: #### L 500.2500 #### [facility] [address] [place], [address] GLU Normal 74-[address] [facility] Comment on above: Result Comment: Canc elled via OM: Order cancelled - Patient discharged Performed By: #### L 500.2500 #### [facility] [address] [place], [address] Potassium Normal 3.5-5.[address] [facility] Comment on above: Result Comment: Canc elled via OM: Order cancelled - Patient discharged Performed By: #### L 500.2500 #### [facility] [address] [place], [address] Basic Metabolic Profile (BMP) Normal 136-[address] [facility] Comment on above: Result Comment: Canc elled via OM: Order cancelled - Patient discharged Performed By: #### L 500.2500 #### [facility] [address] 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 HPI: The patient is an 83 year-old female with history of arrhythmia, status post pacemaker and radiofrequency ablation. Patient had been on Xarelto for atrial fibrillation since 2014. 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 Root for increased fatigue and was noted to have anemia. Patient had an occasional black tarry stool and rectal bleeding as well. She developed progressive anemia with increasing symptom fatigue, dyspnea exertion and palpitation. She denied having any previous blood transfusion. Additional tests showed she has moderate renal insufficiency and serum protein electrophoresis also showed a M protein, 0.73 gram per deciliter, IgG lambda. Patient has no fever, chills or night sweats. She has no bone pain, arthritis, headache or peripheral neuropathy. She has some lightheadedness and dizziness along with restless leg symptom and weakness from anemia. Patient has no weight loss, cough, chest pain or shortness of breath at rest. She had a screening colonoscopy in 2011. Patient has no history of peptic ulcer disease, but she is taking aspirin along with Xarelto. Has h/o [place] (PCI with stents), atrial fibrillation (on rivaroxaban), PPM, DM2, colitis and GERD. Per initial office visit with me: Very fatigued. Significant dyspnea with exertion. Panting. Uses wheeled walker. Legs get very weak. No chest or pressure. Occasional numbness in left foot. No black or bloody stools. Very constipated. Takes Miralax and has stool incontinence. No LE swelling. OV 02/26/2024: Received 5 doses of iron sucrose 11/25 through 12/23/2023. Admitted 02/06/2024 for CHF. Presented with dyspnea on exertion. Was having back pain. Evidently diagnosed with T8 fracture. Saw ortho. Brace. Oxycodone. Debilitating--can't do housework. In Wheelchair today. Recent burn from heating pad. On Lasix daily. Shortness of breat better. Presents for ongoing hematologic management. Interim history: Admitted for CHF. Diuresed. Reviewed electronic record [facility]. Breathing much better. PMH, medications and allergies personally reviewed by me today. Any changes documented in appropriate section. PHYSICAL EXAM: Vitals: Blood pressure 128/73, pulse 90, temperature 36.2 ?C (97.1 ?F), temperature source Temporal, weight 87.1 kg (192 lb), SpO2 92%. Fatigued-appearing and in no acute distress. EYES: Sclerae are anicteric bilaterally. RESPIRATORY: Inspiratory breath sounds are diminished at the bases. CARDIOVASCULAR: Rhythm is regular. ABDOMEN: The abdomen is nondistended. Extremities: No swelling or edema. SKIN: No jaundice. LABS: Latest Ref Rng 11/17/2023 Albumin 3.43 - 5.41 g/dL 4.15 Alpha 1 Globulin 0.18 - 0.43 g/dL 0.30 Alpha 2 Globulin 0.42 - 0.98 g/dL 0.72 Beta Globulin 0.61 - 1.17 g/dL 2.59 (H) Gamma Globulin 0.53 - 1.51 g/dL 0.83 Interpretation (Prot Electro) No definitive M protein is identified on protein electrophoresis. An M protein is identified on protein electrophoresis. ! Interpretation Comment for Protein Electrophoresis See separate immunofixation report for characterization of monoclonal gammopathy. M-Protein Location Beta Fraction 1 M-Protein Concentration <=0.00 g/dL 1.54 (H) SPE Staff Review Reviewed by Kristy Quiles M.D., Ph.D IgG 700 - 1,600 mg/dL 2,591 (H) IgA 70 - 400 mg/dL 378 IgM 40 - 230 mg/dL 78 MPA Result No M protein is identified. M protein is present. ! Interpretation (MPA) Atypical restricted bands are present in the IgG and lambda regions. Consistent with IgG lambda monoclonal gammopathy. 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 -Stable to improved renal function over the last year. -Whole body CT. Questionable lytic lesions in clivus. -Improved serum Cr. -Reviewed all findings. -Consented for bone marrow biopsy. Plan: -MRI skull base and PET since she may not tolerate lying down for MRI whole spine and pelvis. -Rx Ativan for biopsy. -Bone marrow biopsy. -Hold Xarelto day prior to biopsy and resume the day after bone marrow biopsy. Portions of this documentation were copi (more content not included)... Normal [facility] CNPKassidy 04-01-2024 CNPN Telephone (BERKLEY) CANDYANTONIO ([id number]) 1940 F Date Time Provider Department 04/01/24 JOSHUA BAKER During your visit today, we recorded the following information about you: Shara Delgado 04/01/2024 9:28 AM Signed Check out comments: -MRI and PET when able -BMBX here -F/U 7-10 days after PET AND BMBX scheduled. MRI must be triaged/scheduled at [facility] due to having a pacemaker. Please schedule OV once MRI is scheduled. Vesta Laguerre 04/05/2024 3:47 PM Signed Patient called stating she does not want any appointments in department. She canceled bmbx and pet scan. She did not want to reschedule. Joshua Baker DO 04/05/2024 5:06 PM Signed Would she be willing to at least have the PET scan? DO Ellie Boyle Amber, RN 04/06/2024 2:00 PM Signed Patient is refusing to schedule the PET scan or any appointment with our office going forward. She will call our office if she changes her mind. NIYA Harkins Paul A, DO 04/06/2024 3:10 PM Signed Okay. Thank you. Joshua Baker DO Allergies As of Date: 04/01/2024 Noted Allergy Reaction POISON FANY 10/17/2005 SULFA (SULFONAMIDE ANTIBIOTICS) 10/17/2005 4 - Hives Date Reviewed: 04/01/2024 Reviewed by: Joshua Baker DO - Fully Assessed Reason for Visit: 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 [Other] Prescriptions as of 04/06/2024 - losartan (COZAAR) 100 mg tablet Take 100 mg by mouth once daily. - potassium chloride ER (KLOR-CON) 20 mEq tablet Take two tablets by mouth once daily. - omeprazole (PRILOSEC) 40 mg capsule Take 1 capsule by mouth once daily. - oxyCODONE-acetaminoph en (PERCOCET) 5-325 mg tablet TAKE 1 TO 2 TABLETS BY MOUTH EVERY 6 HOURS FOR PAIN - furosemide (LASIX) 40 mg tablet Take 1 tablet by mouth once daily. - glimepiride (AMARYL) 4 mg tablet Take 0.5 tablets by mouth daily with breakfast. - metoprolol succinate ER (TOPROL XL) 50 mg 24 hr tablet Take 50 mg by mouth once daily. - nitroglycerin sublingual (NITROSTAT) 0.4 mg SL tablet Dissolve 1 tablet under the tongue every 5 minutes as needed for chest pain. - tiZANidine (ZANAFLEX) 4 mg tablet Take 1 tablet by mouth every 8 hours as needed (muscle spasms). - levothyroxine (SYNTHROID) 100 mcg tablet Take 1 tablet by mouth once daily. - empagliflozin (JARDIANCE) 10 mg tablet Take 1 tablet by mouth once daily. Take 1 tablet once daily in the morning - amitriptyline (ELAVIL) 50 mg tablet Take 1 tablet by mouth daily at bedtime. - busPIRone (BUSPAR) 15 mg tablet Take 1 tablet by mouth three times a day. - ketotifen fumarate (ALAWAY) 0.025 % (0.035 %) ophthalmic solution Use 1 Drop in both eyes twice daily. - blood sugar diagnostic (ONETOUCH VERIO TEST STRIPS) test strip TEST BLOOD SUGAR ONCE DAILY - lancets (ONE TOUCH DELICA) 33 gauge Test blood sugar(s) 1 daily. Dx: Other DM Code E 11.29 Insulin: No - amLODIPine (NORVASC) 10 mg tablet Take 1 tablet by mouth once daily. - rivaroxaban (XARELTO) 20 mg tablet Take 20 mg by mouth daily with dinner. - simvastatin (ZOCOR) 20 mg tablet Take 20 mg by mouth daily at bedtime. - acetaminophen (TYLENOL EXTRA STRENGTH) 500 mg ORAL tablet Take 2 tablets by mouth every 4 hours as needed. Meds Comments as of 04/24/2022: Using Voltaren Gel prn for knee pain. Problem List As Of Date 04/01/2024 Noted Resolved Contact dermatitis and other eczema, due to uns*10/17/2005 08/12/2010 Hyperlipidemia [E78.5] 07/20/2007 GOUT NOS [M10.9] 07/20/2007 Gastritis/duodenitis [K29.70, K29.90] 10/04/2008 08/13/2011 Routine general medical examination at [facility]*10/04/2008 08/12/2010 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, M94.9] 10/31/2008 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HCC) [F33* Atherosclerotic heart disease of [place]* Essential hypertension, benign [I10] 08/13/2011 S/P angioplasty with stent 11/13/2012 Backache, unspecified [M54.9] 11/08/2013 GERD (gastroesophageal reflux disease) [K21.9] 10/03/2014 Paroxysmal atrial fibrillation (HCC) [I48.0] 09/18/2015 Pacemaker [Z95.0] 09/18/2015 Iron deficiency anemia [D50.9] 08/19/2016 Malabsorption of iron [K90.9] 08/19/2016 12/01/2016 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 Hypothyroidism [E03.9] 12/01/2016 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*06/08/2017 Stage 3a chronic kidney disease (HCC) [N18.31] 12/14/2017 Hypertensive kidney disease with stage 3a chron*04/09/2021 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 Normal [facility] Basic Metabolic Profile (BMP )on 03-31-2024 BUN Normal 7-[address] [facility] Comment on above: Result Comment: Canc elled via OM: Order cancelled - Patient discharged Performed By: #### L 500.2500 #### [facility] [address] [place], [address] BUN/CRE Normal 10-[address] [facility] Comment on above: Result Comment: Canc elled via OM: Order cancelled - Patient discharged Performed By: #### L 500.2500 #### [facility] [address] [place], [address] CA,Total Normal 8.5-10.[address] [facility] Comment on above: Result Comment: Canc elled via OM: Order cancelled - Patient discharged Performed By: #### L 500.2500 #### [facility] [address] [place], [address] CL Normal 98-[address] [facility] Comment on above: Result Comment: Canc elled via OM: Order cancelled - Patient discharged Performed By: #### L 500.2500 #### [facility] [address] [place], [address] CO2 Normal 21.0-32.[address] [facility] Comment on above: Result Comment: Canc elled via OM: Order cancelled - Patient discharged Performed By: #### L 500.2500 #### [facility] [address] [place], [address] CREAT,SERUM Normal 0.55-1.[address] [facility] Comment on above: Result Comment: Canc elled via OM: Order cancelled - Patient discharged Performed By: #### L 500.2500 #### [facility] [address] [place], [address] EST GFR Normal >[address] [facility] Comment on above: Result Comment: Canc elled via OM: Order cancelled - Patient discharged Performed By: #### L 500.2500 #### [facility] [address] [place], [address] EST GFR - AA Normal >[address] [facility] Comment on above: Result Comment: Canc elled via OM: Order cancelled - Patient discharged Performed By: #### L 500.2500 #### [facility] [address] [place], [address] GAP Normal 5-[address] [facility] Comment on above: Result Comment: Canc elled via OM: Order cancelled - Patient discharged Performed By: #### L 500.2500 #### [facility] [address] [place], [address] GLU Normal 74-[address] [facility] Comment on above: Result Comment: Canc elled via OM: Order cancelled - Patient discharged Performed By: #### L 500.2500 #### [facility] [address] [place], [address] Potassium Normal 3.5-5.[address] [facility] Comment on above: Result Comment: Canc elled via OM: Order cancelled - Patient discharged Performed By: #### L 500.2500 #### [facility] [address] [place], [address] Basic Metabolic Profile (BMP) Normal 136-[address] [facility] Comment on above: Result Comment: Canc elled via OM: Order cancelled - Patient discharged Performed By: #### L 500.2500 #### [facility] [address] [place], [address] CNPNon [facility]-31[facility] ANTON[facility] GUPT[facility] ([id number]) 1940 F Date Time Provider Department 03/31/24 VICTOR M ROCHAWS During your visit today, we recorded the following information about you: Gisselle Banda LPN 03/31/2024 11:37 AM Signed Pahn from [facility] calling: Yesterday HH initiated and started Today 03/31/24- patient wishes to d/c services. PATIENT's is there and is managing O2 well. Tomorrow 04/01/24- [facility] well be d/c'd Please review ADRIEL Bullock Ashley, APRN.CNP 03/31/2024 3:17 PM Signed Noted Yovana Painter APRN.CNP Allergies As of Date: 03/31/2024 Noted Allergy Reaction POISON FANY 10/17/2005 SULFA (SULFONAMIDE ANTIBIOTICS) 10/17/2005 4 - Hives Date Reviewed: 02/26/2024 Reviewed by: Keila Li Ma, MA - Fully Assessed Prescriptions as of 03/31/2024 - omeprazole (PRILOSEC) 40 mg capsule Take 1 capsule by mouth once daily. - oxyCODONE-acetaminoph en (PERCOCET) 5-325 mg tablet TAKE 1 TO 2 TABLETS BY MOUTH EVERY 6 HOURS FOR PAIN - furosemide (LASIX) 40 mg tablet Take 1 tablet by mouth once daily. - glimepiride (AMARYL) 4 mg tablet Take 0.5 tablets by mouth daily with breakfast. - metoprolol succinate ER (TOPROL XL) 50 mg 24 hr tablet Take 50 mg by mouth once daily. - nitroglycerin sublingual (NITROSTAT) 0.4 mg SL tablet Dissolve 1 tablet under the tongue every 5 minutes as needed for chest pain. - tiZANidine (ZANAFLEX) 4 mg tablet Take 1 tablet by mouth every 8 hours as needed (muscle spasms). - levothyroxine (SYNTHROID) 100 mcg tablet Take 1 tablet by mouth once daily. - empagliflozin (JARDIANCE) 10 mg tablet Take 1 tablet by mouth once daily. Take 1 tablet once daily in the morning - amitriptyline (ELAVIL) 50 mg tablet Take 1 tablet by mouth daily at bedtime. - busPIRone (BUSPAR) 15 mg tablet Take 1 tablet by mouth three times a day. - ketotifen fumarate (ALAWAY) 0.025 % (0.035 %) ophthalmic solution Use 1 Drop in both eyes twice daily. - blood sugar diagnostic (ONETOUCH VERIO TEST STRIPS) test strip TEST BLOOD SUGAR ONCE DAILY - lancets (ONE TOUCH DELICA) 33 gauge Test blood sugar(s) 1 daily. Dx: Other DM Code E 11.29 Insulin: No - amLODIPine (NORVASC) 10 mg tablet Take 1 tablet by mouth once daily. - rivaroxaban (XARELTO) 20 mg tablet Take 20 mg by mouth daily with dinner. - simvastatin (ZOCOR) 20 mg tablet Take 20 mg by mouth daily at bedtime. - acetaminophen (TYLENOL EXTRA STRENGTH) 500 mg ORAL tablet Take 2 tablets by mouth every 4 hours as needed. Meds Comments as of 04/24/2022: Using Voltaren Gel prn for knee pain. Problem List As Of Date 03/31/2024 Noted Resolved Contact dermatitis and other eczema, due to uns*10/17/2005 08/12/2010 Hyperlipidemia [E78.5] 07/20/2007 GOUT NOS [M10.9] 07/20/2007 Gastritis/duodenitis [K29.70, K29.90] 10/04/2008 08/13/2011 Routine general medical examination at [facility]*10/04/2008 08/12/2010 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, M94.9] 10/31/2008 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HCC) [F33* Atherosclerotic heart disease of [place]* Essential hypertension, benign [I10] 08/13/2011 S/P angioplasty with stent 11/13/2012 Backache, unspecified [M54.9] 11/08/2013 GERD (gastroesophageal reflux disease) [K21.9] 10/03/2014 Paroxysmal atrial fibrillation (HCC) [I48.0] 09/18/2015 Pacemaker [Z95.0] 09/18/2015 Iron deficiency anemia [D50.9] 08/19/2016 Malabsorption of iron [K90.9] 08/19/2016 12/01/2016 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 Hypothyroidism [E03.9] 12/01/2016 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*06/08/2017 Stage 3a chronic kidney disease (HCC) [N18.31] 12/14/2017 Hypertensive kidney disease with stage 3a chron*04/09/2021 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 Comment on above: Result Comment: Canc elled via OM: Order cancelled - Patient discharged Performed By: #### L 501.4020, L500.4050, L503.6620, L100.0100 #### [facility] [address] [place], [address] BUN/CRE Normal 10-[address] [facility] Comment on above: Result Comment: Canc elled via OM: Order cancelled - Patient discharged Performed By: #### L 501.4020, L500.4050, L503.6620, L100.0100 #### [facility] [address] [place], [address] CA,Total Normal 8.5-10.[address] [facility] Comment on above: Result Comment: Canc elled via OM: Order cancelled - Patient discharged Performed By: #### L 501.4020, L500.4050, L503.6620, L100.0100 #### [facility] [address] [place], [address] CL Normal 98-[address] [facility] Comment on above: Result Comment: Canc elled via OM: Order cancelled - Patient discharged Performed By: #### L 501.4020, L500.4050, L503.6620, L100.0100 #### [facility] [address] [place], [address] CO2 Normal 21.0-32.[address] [facility] Comment on above: Result Comment: Canc elled via OM: Order cancelled - Patient discharged Performed By: #### L 501.4020, [id number], L503.6620, L100.0100 #### [facility] [address] [place], [address] CREAT,SERUM Normal 0.55-1.[address] [facility] Comment on above: Result Comment: Canc elled via OM: Order cancelled - Patient discharged Performed By: #### L 501.4020, [id number], L503.6620, L100.0100 #### [facility] [address] [place], [address] EST GFR Normal >[address] [facility] Comment on above: Result Comment: Canc elled via OM: Order cancelled - Patient discharged Performed By: #### L 501.4020, L500.4050, L503.6620, L100.0100 #### [facility] [address] [place], [address] EST GFR - AA Normal >[address] [facility] Comment on above: Result Comment: Canc elled via OM: Order cancelled - Patient discharged Performed By: #### L 501.4020, L500.4050, L503.6620, L100.0100 #### [facility] [address] [place], [address] GAP Normal 5-[address] [facility] Comment on above: Result Comment: Canc elled via OM: Order cancelled - Patient discharged Performed By: #### L 501.4020, L500.4050, L503.6620, L100.0100 #### [facility] [address] [place], [address] GLU Normal 74-[address] [facility] Comment on above: Result Comment: Canc elled via OM: Order cancelled - Patient discharged Performed By: #### L 501.4020, L500.4050, L503.6620, L100.0100 #### [facility] [address] [place], [address] Potassium Normal 3.5-5.[address] [facility] Comment on above: Result Comment: Canc elled via OM: Order cancelled - Patient discharged Performed By: #### L 501.4020, L500.4050, L503.6620, L100.0100 #### [facility] [address] [place], [address] Basic Metabolic Profile (BMP) Normal 136-[address] [facility] Comment on above: Result Comment: Canc elled via OM: Order cancelled - Patient discharged Performed By: #### L 501.4020, L500.4050, L503.6620, L100.0100 #### [facility] [address] [place], [address] CNPNon 03-30-2024 [facility] ([id number]) 1940 F Date Time Provider Department 03/30/24 [facility] During your visit today, we recorded the following information about you: Shanti Astorga, NIYA 03/30/2024 4:06 PM Signed Fanny nurse with [facility] calling with the following: Update: Nursing Plan of Care: Nursing will see patient 2x/week for 2 weeks then 1x/week for 2 weeks for heart failure mgmt; oxygen and medication management. Question: Patient taking 4 laxatives currently. HH Nurse asking which medications should patient continue and which ones should she not continue? 1) senakot OTC- one daily 2) colace OTC-one daily 3) docusate sodium 100 mg daily 4)Senna-S OTC-one daily Report of Medication Discrepancy: Patient currently taking Potassium and Amitriptyline which can cause gastric delay and stomach upset. Please notify HH Nurse if provider wishes to make any changes with these medications. Please call Fanny with reply: [phone] Thank you. Allergies As of Date: 03/30/2024 Noted Allergy Reaction POISON FANY 10/17/2005 SULFA (SULFONAMIDE ANTIBIOTICS) 10/17/2005 4 - Hives Date Reviewed: 02/26/2024 Reviewed by: Keila Li Ma, MA - Fully Assessed Reason for Visit: Home Health: Nursing Plan of Care [Other] Order Question [Other] Prescriptions as of 04/11/2024 - losartan (COZAAR) 100 mg tablet Take 100 mg by mouth once daily. - potassium chloride ER (KLOR-CON) 20 mEq tablet Take two tablets by mouth once daily. - omeprazole (PRILOSEC) 40 mg capsule Take 1 capsule by mouth once daily. - oxyCODONE-acetaminoph en (PERCOCET) 5-325 mg tablet TAKE 1 TO 2 TABLETS BY MOUTH EVERY 6 HOURS FOR PAIN - furosemide (LASIX) 40 mg tablet Take 1 tablet by mouth once daily. - glimepiride (AMARYL) 4 mg tablet Take 0.5 tablets by mouth daily with breakfast. - metoprolol succinate ER (TOPROL XL) 50 mg 24 hr tablet Take 50 mg by mouth once daily. - nitroglycerin sublingual (NITROSTAT) 0.4 mg SL tablet Dissolve 1 tablet under the tongue every 5 minutes as needed for chest pain. - tiZANidine (ZANAFLEX) 4 mg tablet Take 1 tablet by mouth every 8 hours as needed (muscle spasms). - levothyroxine (SYNTHROID) 100 mcg tablet Take 1 tablet by mouth once daily. - empagliflozin (JARDIANCE) 10 mg tablet Take 1 tablet by mouth once daily. Take 1 tablet once daily in the morning - amitriptyline (ELAVIL) 50 mg tablet Take 1 tablet by mouth daily at bedtime. - busPIRone (BUSPAR) 15 mg tablet Take 1 tablet by mouth three times a day. - ketotifen fumarate (ALAWAY) 0.025 % (0.035 %) ophthalmic solution Use 1 Drop in both eyes twice daily. - blood sugar diagnostic (ONETOUCH VERIO TEST STRIPS) test strip TEST BLOOD SUGAR ONCE DAILY - lancets (ONE TOUCH DELICA) 33 gauge Test blood sugar(s) 1 daily. Dx: Other DM Code E 11.29 Insulin: No - amLODIPine (NORVASC) 10 mg tablet Take 1 tablet by mouth once daily. - rivaroxaban (XARELTO) 20 mg tablet Take 20 mg by mouth daily with dinner. - simvastatin (ZOCOR) 20 mg tablet Take 20 mg by mouth daily at bedtime. - acetaminophen (TYLENOL EXTRA STRENGTH) 500 mg ORAL tablet Take 2 tablets by mouth every 4 hours as needed. Meds Comments as of 04/24/2022: Using Voltaren Gel prn for knee pain. 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[place]* Essential hypertension, benign [I10] 08/13/2011 S/P angioplasty with stent 11/13/2012 Backache, unspecified [M54.9] 11/08/2013 GERD (gastroesophageal reflux disease) [K21.9] 10/03/2014 Paroxysmal atrial fibrillation (HCC) [I48.0] 09/18/2015 Pacemaker [Z95.0] 09/18/2015 Iron deficiency anemia [D50.9] 08/19/2016 Malabsorption of iron [K90.9] 08/19/2016 12/01/2016 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 Hypothyroidism [E03.9] 12/01/2016 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*06/08/2017 Stage 3a chronic kidney disease (HCC) [N18.31] 12/14/2017 Hypertensive kidney disease with stage 3a chron*04/09/2021 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 Normal [facility] Basic Metabolic Profile (BMP )on 03-29-2024 BUN/CRE 13.2 RATIO Normal 10-[address] [facility] Comment on above: Performed By: #### L 501.4020, L500.4050, L503.6620, L100.0100 #### [facility] [address] [place], [address] CA,Total 9.2 mg/dL Normal 8.5-10.[address] [facility] Comment on above: Performed By: #### L 501.4020, L500.4050, L503.6620, L100.0100 #### [facility] [address] [place], [address] Chloride [Moles/Vol] 96 mmol/L Low 98-107 [facility] Comment on above: Performed By: #### L 501.4020, L500.4050, L503.6620, L100.0100 #### [facility] [address] [place], [address] CO2 [Moles/Vol] 32.0 mmol/L Normal 21.0-32.[address] [facility] Comment on above: Performed By: #### L 501.4020, L500.4050, L503.6620, L100.0100 #### [facility] [address] [place], [address] Creatinine [Mass/Vol] 1.21 mg/dL High 0.55-1.02 [facility] Comment on above: Result Comment: The validity of the calculated GFR GFRAA in patients over 70 years has not been determined. Clinical correlation is essential. Performed By: #### L 501.4020, L500.4050, L503.6620, L100.0100 #### [facility] [address] [place], [address] ECRCL 39.61 ml/min Normal [facility] Comment on above: Performed By: #### L 501.4020, L500.4050, L503.6620, L100.0100 #### [facility] [address] [place], [address] EST GFR - AA 54 mL/min Low >[address] [facility] Comment on above: Result Comment: Afri can [place] GFR Calc Performed By: #### L 501.4020, L500.4050, L503.6620, L100.0100 #### [facility] [address] [place], [address] GAP 7 Normal 5-[address] [facility] Comment on above: Performed By: #### L 501.4020, L500.4050, L503.6620, L100.0100 #### [facility] [address] [place], [address] GFR/1.73 sq M.predicted among non-blacks MDRD (S/P/Bld) [Vol rate/Area] 45 mL/min/{1.73_m2} Low >[address] [facility] Comment on above: Result Comment: Non- GFR Calc Performed By: #### L 501.4020, L500.4050, L503.6620, L100.0100 #### [facility] [address] [place], [address] Glucose [Mass/Vol] 106 mg/dL Normal 74-106 [facility] Comment on above: Result Comment: Fast ing Glucose result from 100 to 125 mg/dL suggests IMPAIRED HOMEOSTASIS per A.D.A. criteria. Performed By: #### L 501.4020, L500.4050, L503.6620, L100.0100 #### [facility] [address] [place], [address] Potassium [Moles/Vol] 3.2 mmol/L Low 3.5-5.1 [facility] Comment on above: Performed By: #### L 501.4020, L500.4050, L503.6620, L100.0100 #### [facility] [address] [place], [address] Sodium [Moles/Vol] 135 mmol/L Low 136-145 [facility] Comment on above: Performed By: #### L 501.4020, L500.4050, L503.6620, L100.0100 #### [facility] [address] [place], [address] Urea nitrogen [Mass/Vol] 16 mg/dL Normal 7-[address] [facility] Comment on above: Performed By: #### L 501.4020, L500.4050, L503.6620, L100.0100 #### [facility] [address] [place], [address] Kodi 03-29-2024 [facility] Telephone ([facility]) ANTONIO GUPTA ([id number]) 1940 F Date Time Provider Department 03/29/24 VICTOR M ROCHA During your visit today, we recorded the following information about you: Rose Manuel LPN 03/29/2024 1:59 PM Signed Yovana with [facility] calls to report pt was getting discharged today from [facility]. Pt has orders for Nursing, PT, and OT. Pt is getting sent home with new O2. Yovana is requesting provider's VO that pcp will follow pt while in HH. ADRIEL Minaya Jesse, APRN.DICK 03/29/2024 1:59 PM Signed Please let her know that Dr. Rocha's team will follow home health care orders. Okay to proceed. Carlos House APRN.Paty Del Rosario LPN 03/29/2024 2:01 PM Signed Yovana with [facility] HH notified. Verbalized understanding. Allergies As of Date: 03/29/2024 Noted Allergy Reaction POISON FANY 10/17/2005 SULFA (SULFONAMIDE ANTIBIOTICS) 10/17/2005 4 - Hives Date Reviewed: 02/26/2024 Reviewed by: Keila Li Ma, MA - Fully Assessed Reason for Visit: verbal orders [Other] Prescriptions as of 03/29/2024 - omeprazole (PRILOSEC) 40 mg capsule Take 1 capsule by mouth once daily. - oxyCODONE-acetaminoph en (PERCOCET) 5-325 mg tablet TAKE 1 TO 2 TABLETS BY MOUTH EVERY 6 HOURS FOR PAIN - furosemide (LASIX) 40 mg tablet Take 1 tablet by mouth once daily. - glimepiride (AMARYL) 4 mg tablet Take 0.5 tablets by mouth daily with breakfast. - metoprolol succinate ER (TOPROL XL) 50 mg 24 hr tablet Take 50 mg by mouth once daily. - nitroglycerin sublingual (NITROSTAT) 0.4 mg SL tablet Dissolve 1 tablet under the tongue every 5 minutes as needed for chest pain. - tiZANidine (ZANAFLEX) 4 mg tablet Take 1 tablet by mouth every 8 hours as needed (muscle spasms). - levothyroxine (SYNTHROID) 100 mcg tablet Take 1 tablet by mouth once daily. - empagliflozin (JARDIANCE) 10 mg tablet Take 1 tablet by mouth once daily. Take 1 tablet once daily in the morning - amitriptyline (ELAVIL) 50 mg tablet Take 1 tablet by mouth daily at bedtime. - busPIRone (BUSPAR) 15 mg tablet Take 1 tablet by mouth three times a day. - ketotifen fumarate (ALAWAY) 0.025 % (0.035 %) ophthalmic solution Use 1 Drop in both eyes twice daily. - blood sugar diagnostic (Shippo VERIO TEST STRIPS) test strip TEST BLOOD SUGAR ONCE DAILY - lancets (ONE TOUCH DELICA) 33 gauge Test blood sugar(s) 1 daily. Dx: Other DM Code E 11.29 Insulin: No - amLODIPine (NORVASC) 10 mg tablet Take 1 tablet by mouth once daily. - rivaroxaban (XARELTO) 20 mg tablet Take 20 mg by mouth daily with dinner. - simvastatin (ZOCOR) 20 mg tablet Take 20 mg by mouth daily at bedtime. - acetaminophen (TYLENOL EXTRA STRENGTH) 500 mg ORAL tablet Take 2 tablets by mouth every 4 hours as needed. Meds Comments as of 04/24/2022: Using Voltaren Gel prn for knee pain. 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[place]* Essential hypertension, benign [I10] 08/13/2011 S/P angioplasty with stent 11/13/2012 Backache, unspecified [M54.9] 11/08/2013 GERD (gastroesophageal reflux disease) [K21.9] 10/03/2014 Paroxysmal atrial fibrillation (HCC) [I48.0] 09/18/2015 Pacemaker [Z95.0] 09/18/2015 Iron deficiency anemia [D50.9] 08/19/2016 Malabsorption of iron [K90.9] 08/19/2016 12/01/2016 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 Hypothyroidism [E03.9] 12/01/2016 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*06/08/2017 Stage 3a chronic kidney disease (HCC) [N18.31] 12/14/2017 Hypertensive kidney disease with stage 3a chron*04/09/2021 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/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*04/09/2021 Osteoporosis with current pathological fracture*09/09/2021 Tremor [R25.1] 01/14/2022 Benign essential tremor [G25.0] 01/14/2022 Benign neoplasm of meninges, unspecified (HCC) *12/11/2022 10/30/2023 Secondary pulmonary arterial hypertension (HCC)*12/11/2022 Stage 3b chronic kidney disease (HCC) [N18.32] 10/30/2023 Chronic diastolic CHF (congestive heart failure*12/24/2023 Encounter Status:Closed by PATY ALAN on 03/29/24 [facility] Discharge Instructionon 03-13 Discharge Instruction [facility] Medical Records Department [address] [place] [address] Instructions for Home/Discharge Instructions 03/29/24 1128 MR#: [id number] Acct: [id number] Name: ANTONIO GUPTA Rep #: [id number] : 1940 83 From: Juice Elizabeth DO PCP: Dr. Victor M Rocha MD Status:ADM IN Discharge Instructions Diet Discharge Diet: 8 Cup Fluid Restriction and 4000 mg Sodium Diet Activity Discharge Activity: No Restrictions Follow Up Care Test Results: Test results from this visit will be discussed in further detail at your follow-up appointment, if applicable. Discharge Plan Admission Admit Date/Time: 03/25/24 13:16 Primary Reason for Your Visit: Shortness of breath Attending Provider: Juice Elizabeth Primary Care Provider: Victor M Rocha Consulting Providers: Terrance Zuniga Instructions Additional Instructions / Restrictions: Please take 40 mEq of potassium daily (you were taking 20) going forward for low potassium. Stop taking your amlodipine. Otherwise continue your other home medications as normal, including Lasix 40 mg once daily. Follow-up with the heart doctor in 1 to 2 weeks. Discharge Orders/Prescriptions Prescriptions: New potassium chloride 20 mEq Tablet,Er Particles/Crystals 40 meq PO DAILYCM 30 Days Qty: 60 2RF Continued glimepiride 4 mg tablet 2 mg PO DAILY amitriptyline 50 mg tablet 50 mg PO QHS Jardiance 10 mg tablet 10 mg PO DAILY ketotifen fumarate [Alaway] 0.025 % (0.035 %) drops 1 drp ophthalmic (eye) BID PRN (Reason: ITCHING/ALLERGIES ) omeprazole 40 MG capsule 40 mg PO DAILY buspirone 15 MG tablet 15 mg PO BID nitroglycerin 0.4 MG tablet 0.4 mg SUBLINGUAL Q5M PRN (Reason: CHEST PAIN ) levothyroxine [Synthroid] 100 mcg tablet 100 mcg PO DAILY simvastatin 20 mg tablet 20 mg PO QHS Xarelto 20 mg tablet 20 mg PO DAILY metoprolol succinate 50 mg Tablet Extended Release 24 Hr 50 mg PO DAILY Qty: 60 0RF furosemide [Lasix] 40 mg tablet 40 mg PO DAILY Qty: 60 0RF losartan 100 mg tablet 100 mg PO DAILY Discontinued acetaminophen 500 mg capsule 1,000 mg PO Q4H PRN (Reason: PAIN ) amlodipine 10 mg tablet 10 mg PO DAILY potassium chloride 20 mEq Tablet,Er Particles/Crystals 20 meq PO DAILY Qty: 30 0RF oxycodone-acetaminoph en [Percocet] 5-325 mg tablet 1 tab PO Q6H PRN (Reason: pain) 3 Days Qty: 12 0RF Referrals / Follow Up: Victor M Rocha MD [Primary Care Provider] - Disposition Disposition (needs filled in before D/C Order can be placed): Home, Self Care 03/29/24 1133 Juice Elizabeth DO CC: Dr. Victor M Rocha MD; Dr. Terrance Zuniga MD Signed Normal [facility] Basic Metabolic Profile (BMP )on 03-28-2024 BUN Normal 7-[address] [facility] Comment on above: Result Comment: Canc elled via OM: Ordered Performed By: #### L 500.2500 ####[facility] [address] [place], [address] BUN/CRE Normal 10-[address] [facility] Comment on above: Result Comment: Canc elled via OM: MD Ordered Performed By: #### L 500.2500 ####[facility] [address] [place], [address] CA,Total Normal 8.5-10.[address] [facility] Comment on above: Result Comment: Canc elled via OM: MD Ordered Performed By: #### L 500.2500 ####[facility] [address] [place], [address] CL Normal 98-[address] [facility] Comment on above: Result Comment: Canc elled via OM: MD Ordered Performed By: #### L 500.2500 ####[facility] [address] [place], [address] CO2 Normal 21.0-32.[address] [facility] Comment on above: Result Comment: Canc elled via OM: MD Ordered Performed By: #### L 500.2500 ####[facility] [address] [place], [address] CREAT,SERUM Normal 0.55-1.[address] [facility] Comment on above: Result Comment: Canc elled via OM: MD Ordered Performed By: #### L 500.2500 ####[facility] [address] [place], [address] EST GFR Normal >[address] [facility] Comment on above: Result Comment: Canc elled via OM: MD Ordered Performed By: #### L 500.2500 ####[facility] [address] [place], [address] EST GFR - AA Normal >[address] [facility] Comment on above: Result Comment: Canc elled via OM: MD Ordered Performed By: #### L 500.2500 ####[facility] [address] [place], [address] GAP Normal 5-[address] [facility] Comment on above: Result Comment: Canc elled via OM: MD Ordered Performed By: #### L 500.2500 ####[facility] [address] [place], [address] GLU Normal 74-[address] [facility] Comment on above: Result Comment: Canc elled via OM: MD Ordered Performed By: #### L 500.2500 ####[facility] [address] [place], [address] Potassium Normal 3.5-5.[address] [facility] Comment on above: Result Comment: Canc elled via OM: MD Ordered Performed By: #### L 500.2500 ####[facility] [address] [place], [address] Basic Metabolic Profile (BMP) Normal 136-[address] [facility] Comment on above: Result Comment: Canc elled via OM: MD Ordered Performed By: #### L 500.2500 ####[facility] [address] [place], [address] CNPNon 03-28-2024 [facility] Telephone (HEMNELLI) ANTONIO GUPTA ([id number]) 1940 F Date Time Provider Department 03/28/24 JOSHUA BAKER During your visit today, we recorded the following information about you: Vesta Jett 03/28/2024 10:51 AM Signed Nitin,daughter called stating patient was unable to finish 03/[address] Baker due to being sent to hospital. She is calling to reschedule. Please advise if this is just a simple office visit or if any testing/lab need to be done prior. Please call Nitin to schedule Joshua Baker DO 03/28/2024 12:47 PM Signed Simple visit would be fine. Can use a chemotherapy visit slot if needed. Shara Delgado 03/28/2024 2:13 PM Signed Left message for Nitin to return call. When she calls, please schedule an EST SIMPLE with Dr. Baker as instructed below. Vesta Laguerre 03/29/2024 10:57 AM Signed Scheduled with Nitin Allergies As of Date: 03/28/2024 Noted Allergy Reaction POISON FANY 10/17/2005 SULFA (SULFONAMIDE ANTIBIOTICS) 10/17/2005 4 - Hives Date Reviewed: 02/26/2024 Reviewed by: Keila Li Ma, MA - Fully Assessed Reason for Visit: Appointment [186] Prescriptions as of 03/29/2024 - omeprazole (PRILOSEC) 40 mg capsule Take 1 capsule by mouth once daily. - oxyCODONE-acetaminoph en (PERCOCET) 5-325 mg tablet TAKE 1 TO 2 TABLETS BY MOUTH EVERY 6 HOURS FOR PAIN - furosemide (LASIX) 40 mg tablet Take 1 tablet by mouth once daily. - glimepiride (AMARYL) 4 mg tablet Take 0.5 tablets by mouth daily with breakfast. - metoprolol succinate ER (TOPROL XL) 50 mg 24 hr tablet Take 50 mg by mouth once daily. - nitroglycerin sublingual (NITROSTAT) 0.4 mg SL tablet Dissolve 1 tablet under the tongue every 5 minutes as needed for chest pain. - tiZANidine (ZANAFLEX) 4 mg tablet Take 1 tablet by mouth every 8 hours as needed (muscle spasms). - levothyroxine (SYNTHROID) 100 mcg tablet Take 1 tablet by mouth once daily. - empagliflozin (JARDIANCE) 10 mg tablet Take 1 tablet by mouth once daily. Take 1 tablet once daily in the morning - amitriptyline (ELAVIL) 50 mg tablet Take 1 tablet by mouth daily at bedtime. - busPIRone (BUSPAR) 15 mg tablet Take 1 tablet by mouth three times a day. - ketotifen fumarate (ALAWAY) 0.025 % (0.035 %) ophthalmic solution Use 1 Drop in both eyes twice daily. - blood sugar diagnostic (ONETOUCH VERIO TEST STRIPS) test strip TEST BLOOD SUGAR ONCE DAILY - lancets (ONE TOUCH DELICA) 33 gauge Test blood sugar(s) 1 daily. Dx: Other DM Code E 11.29 Insulin: No - amLODIPine (NORVASC) 10 mg tablet Take 1 tablet by mouth once daily. - rivaroxaban (XARELTO) 20 mg tablet Take 20 mg by mouth daily with dinner. - simvastatin (ZOCOR) 20 mg tablet Take 20 mg by mouth daily at bedtime. - acetaminophen (TYLENOL EXTRA STRENGTH) 500 mg ORAL tablet Take 2 tablets by mouth every 4 hours as needed. Meds Comments as of 04/24/2022: Using Voltaren Gel prn for knee pain. 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[place]* Essential hypertension, benign [I10] 08/13/2011 S/P angioplasty with stent 11/13/2012 Backache, unspecified [M54.9] 11/08/2013 GERD (gastroesophageal reflux disease) [K21.9] 10/03/2014 Paroxysmal atrial fibrillation (HCC) [I48.0] 09/18/2015 Pacemaker [Z95.0] 09/18/2015 Iron deficiency anemia [D50.9] 08/19/2016 Malabsorption of iron [K90.9] 08/19/2016 12/01/2016 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 Hypothyroidism [E03.9] 12/01/2016 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*06/08/2017 Stage 3a chronic kidney disease (HCC) [N18.31] 12/14/2017 Hypertensive kidney disease with stage 3a chron*04/09/2021 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/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*04/09/2021 Osteoporosis with current pathological fracture*09/09/2021 Tremor [R25.1] 01/14/2022 Benign essential tremor [G25.0] 01/14/2022 Benign neoplasm of meninges, unspecified (HCC) *12/11/2022 10/30/2023 Secondary pulmonary arterial hypertension (HCC)*12/11/2022 Stage 3b chronic kidney disease (HCC) [N18.32] 10/30/2023 Chronic diastolic CHF (congestive heart failure*12/24/2023 Encounter Status:Closed by BELLE FAJARDO on 03/29/24 Normal [facility] Cheston 03-28-2024 [facility] [address] [place] [address] Chest MR#: [id number] Acct: [id number] Name: ANTONIO GUPTA Rep #: [id number] : 1940 F 83 From: Bello snyder MD PCP: Dr. Victor M Rocha MD Status: ADM IN Study: Chest Date of Exam: 03/28/24 Exam# [id number] Ordering Dr: Juice Elizabeth DO [id number] STUDY: SUPERFICIAL ULTRASOUND - RIGHT PLEURAL SPACE. REASON FOR EXAM: Female, 83 years old. Persistent large b/l pleural effusions -- diagnostic and therapeutic TECHNIQUE: A superficial ultrasound was performed with real-time and static claros-scale imaging. COMPARISON: None. FINDINGS: Not enough fluid for a safe thoracentesis. US/Chest IMPRESSION: Not enough fluid for safe thoracentesis. Electronically Signed: Bello Lozoya MD at 15:18 EDT , CC: Dr. Juice Elizabeth DO; Dr. Victor M Rocha MD Derrick Follower: Signed Normal [facility] Comprehensive Metabolic Prof ilon 03-28-2024 Albumin [Mass/Vol] 3.1 g/dL Low 3.2-5.0 [facility] Comment on above: Performed By: #### L 500.4050, L504.2610 ####[facility] [address] [place], [address] Albumin/Globulin [Mass ratio] 0.5 {ratio} Low 0.9-2.[address] [facility] Comment on above: Performed By: #### L 500.4050, L504.2610 ####[facility] [address] [place], [address] ALK P 152 U/L High 45-[address] [facility] Comment on above: Performed By: #### L 500.4050, L504.2610 ####[facility] [address] [place], [address] ALT [Catalytic activity/Vol] 12 U/L Low 13-[address] [facility] Comment on above: Performed By: #### L 500.4050, L504.2610 ####[facility] [address] [place], [address] AST [Catalytic activity/Vol] 15 U/L Normal 15-[address] [facility] Comment on above: Performed By: #### L 500.4050, L504.2610 ####[facility] [address] [place], [address] Bilirubin [Mass/Vol] 0.90 mg/dL Normal 0.20-1.00 [facility] Comment on above: Result Comment: For patients on eltrombopag therapy, use of [employer]ension [place] TBIL is not recommended. Performed By: #### L 500.4050, L504.2610 ####[facility] [address] [place], [address] BUN/CRE 11.0 RATIO Normal 10-[address] [facility] Comment on above: Performed By: #### L 500.4050, L504.2610 ####[facility] [address] [place], [address] CA,Total 9.8 mg/dL Normal 8.5-10.[address] [facility] Comment on above: Performed By: #### L 500.4050, L504.2610 ####[facility] [address] [place], [address] Chloride [Moles/Vol] 93 mmol/L Low 98-107 [facility] Comment on above: Performed By: #### L 500.4050, L504.2610 ####[facility] [address] [place], [address] CO2 [Moles/Vol] 32.0 mmol/L Normal 21.0-32.[address] [facility] Comment on above: Performed By: #### L 500.4050, L504.2610 ####[facility] [address] [place], [address] Creatinine [Mass/Vol] 1.36 mg/dL High 0.55-1.02 [facility] Comment on above: Result Comment: The validity of the calculated GFR GFRAA in patients over 70 years has not been determined. Clinical correlation is essential. Performed By: #### L 500.4050, L504.2610 ####[facility] [address] [place], [address] ECRCL 35.42 ml/min Normal [facility] Comment on above: Performed By: #### L 500.4050, L504.2610 ####[facility] [address] [place], [address] EST GFR - AA 48 mL/min Low >[address] [facility] Comment on above: Result Comment: Afri can [place] GFR Calc Performed By: #### L 500.4050, L504.2610 ####[facility] [address] [place], [address] GAP 7 Normal 5-[address] [facility] Comment on above: Performed By: #### L 500.4050, L504.2610 ####[facility] [address] [place], [address] GFR/1.73 sq M.predicted among non-blacks MDRD (S/P/Bld) [Vol rate/Area] 39 mL/min/{1.73_m2} Low >[address] [facility] Comment on above: Result Comment: Non- GFR Calc Performed By: #### L 500.4050, L504.2610 ####[facility] [address] [place], [address] Globulin (S) [Mass/Vol] 6.1 g/dL High 2.2-4.2 [facility] Comment on above: Performed By: #### L 500.4050, L504.2610 ####[facility] [address] [place], [address] Glucose [Mass/Vol] 115 mg/dL High 74-106 [facility] Comment on above: Result Comment: Fast ing Glucose result from 100 to 125 mg/dL suggests IMPAIRED HOMEOSTASIS per A.D.A. criteria. Performed By: #### L 500.4050, L504.2610 ####[facility] [address] [place], [address] Potassium [Moles/Vol] 3.2 mmol/L Low 3.5-5.1 [facility] Comment on above: Performed By: #### L 500.4050, L504.2610 ####[facility] [address] [place], [address] Sodium [Moles/Vol] 132 mmol/L Low 136-145 [facility] Comment on above: Performed By: #### L 500.4050, L504.2610 ####[facility] [address] [place], [address] T PROT 9.2 g/dL High 6.4-8.[address] [facility] Comment on above: Performed By: #### L 500.4050, L504.2610 ####[facility] [address] [place], [address] Urea nitrogen [Mass/Vol] 15 mg/dL Normal 7-[address] [facility] Comment on above: Performed By: #### L 500.4050, L504.2610 ####[facility] [address] [place], [address] LDHon 03-28-2024 LDH 219 U/L Normal 84-[address] [facility] Comment on above: Performed By: #### L 500.4050, L504.2610 ####[facility] [address] [place], [address] Partial Thromboplast Timeon 03-28-2024 aPTT Coag (Bld) [Time] 49.7 s High 24.1-36.2 [facility] Comment on above: Performed By: #### L 300.4310, L300.3900 ####[facility] [address] [place], [address] Prothrombin Time w/INRon INR Coag (PPP) [Relative time] 2.5 {INR} Normal [facility] Comment on above: Performed By: #### L 300.4310, L300.3900 #### [facility] [address] [place], [address] PT Coag (PPP) [Time] 26.8 s High 11.7-14.9 [facility] Comment on above: Performed By: #### L 300.4310, L300.3900 #### [facility] [address] [place], [address] Basic Metabolic Profile (BMP )on 03-27-2024 BUN/CRE 8.0 RATIO Low 10-[address] [facility] Comment on above: Performed By: #### L 500.2500 ####[facility] [address] [place], [address] CA,Total 9.4 mg/dL Normal 8.5-10.[address] [facility] Comment on above: Performed By: #### L 500.2500 ####[facility] [address] [place], [address] Chloride [Moles/Vol] 94 mmol/L Low 98-107 [facility] Comment on above: Performed By: #### L 500.2500 ####[facility] [address] [place], [address] CO2 [Moles/Vol] 33.0 mmol/L High 21.0-32.[address] [facility] Comment on above: Performed By: #### L 500.2500 ####[facility] [address] [place], [address] Creatinine [Mass/Vol] 1.37 mg/dL High 0.55-1.02 [facility] Comment on above: Result Comment: The validity of the calculated GFR GFRAA in patients over 70 years has not been determined. Clinical correlation is essential. Performed By: #### L 500.2500 ####[facility] [address] [place], [address] ECRCL 36.11 ml/min Normal [facility] Comment on above: Performed By: #### L 500.2500 ####[facility] [address] [place], [address] EST GFR - AA 47 mL/min Low >[address] [facility] Comment on above: Result Comment: Afri can [place] GFR Calc Performed By: #### L 500.2500 ####[facility] [address] [place], [address] GAP 6 Normal 5-[address] [facility] Comment on above: Performed By: #### L 500.2500 ####[facility] [address] [place], [address] GFR/1.73 sq M.predicted among non-blacks MDRD (S/P/Bld) [Vol rate/Area] 39 mL/min/{1.73_m2} Low >[address] [facility] Comment on above: Result Comment: Non- GFR Calc Performed By: #### L 500.2500 ####[facility] [address] [place], [address] Glucose [Mass/Vol] 165 mg/dL High 74-106 [facility] Comment on above: Result Comment: Fast ing Glucose result greater than or equal to 126 mg/dL suggests DIABETES MELLITUS per A.D.A. criteria. Performed By: #### L 500.2500 ####[facility] [address] [place], [address] Potassium [Moles/Vol] 3.9 mmol/L Normal 3.5-5.1 [facility] Comment on above: Performed By: #### L 500.2500 ####[facility] [address] [place], [address] Sodium [Moles/Vol] 133 mmol/L Low 136-145 [facility] Comment on above: Performed By: #### L 500.2500 ####[facility] [address] [place], [address] Urea nitrogen [Mass/Vol] 11 mg/dL Normal 7-[address] [facility] Comment on above: Performed By: #### L 500.2500 ####[facility] [address] [place], [address] BUN/CRE 9.6 RATIO Low 10-[address] [facility] Comment on above: Performed By: #### L 501.4020, L500.4050, L503.6620, L100.0100 #### [facility] [address] [place], [address] CA,Total 8.9 mg/dL Normal 8.5-10.[address] [facility] Comment on above: Performed By: #### L 501.4020, L500.4050, L503.6620, L100.0100 #### [facility] [address] [place], [address] Chloride [Moles/Vol] 94 mmol/L Low 98-107 [facility] Comment on above: Performed By: #### L 501.4020, L500.4050, L503.6620, L100.0100 #### [facility] [address] [place], [address] CO2 [Moles/Vol] 33.0 mmol/L High 21.0-32.[address] [facility] Comment on above: Performed By: #### L 501.4020, L500.4050, L503.6620, L100.0100 #### [facility] [address] [place], [address] Creatinine [Mass/Vol] 1.14 mg/dL High 0.55-1.02 [facility] Comment on above: Result Comment: The validity of the calculated GFR GFRAA in patients over 70 years has not been determined. Clinical correlation is essential. Performed By: #### L 501.4020, L500.4050, L503.6620, L100.0100 #### [facility] [address] [place], [address] ECRCL 43.81 ml/min Normal [facility] Comment on above: Performed By: #### L 501.4020, L500.4050, L503.6620, L100.0100 #### [facility] [address] [place], [address] EST GFR - AA 58 mL/min Low >[address] [facility] Comment on above: Result Comment: Afri can S[place] GFR Calc Performed By: #### L 501.4020, L500.4050, L503.6620, L100.0100 #### [facility] [address] [place], [address] GAP 7 Normal 5-[address] [facility] Comment on above: Performed By: #### L 501.4020, L500.4050, L503.6620, L100.0100 #### [facility] [address] [place], [address] GFR/1.73 sq M.predicted among non-blacks MDRD (S/P/Bld) [Vol rate/Area] 48 mL/min/{1.73_m2} Low >[address] [facility] Comment on above: Result Comment: Non- GFR Calc Performed By: #### L 501.4020, L500.4050, L503.6620, L100.0100 #### [facility] [address] [place], [address] Glucose [Mass/Vol] 77 mg/dL Normal 74-106 [facility] Comment on above: Performed By: #### L 501.4020, L500.4050, L503.6620, L100.0100 #### [facility] [address] [place], [address] Potassium [Moles/Vol] 2.6 mmol/L Invalid Interpretation Code 3.5-5.[address] [facility] Comment on above: Result Comment: Crit ical Result(s) Called at: 05:43:14 03/27/2024 by: Kishan Hoyt. elissa Randall RN PCU. Results read back by same. Performed By: #### L 501.4020, L500.4050, L503.6620, L100.0100 #### [facility] [address] [place], [address] Sodium [Moles/Vol] 134 mmol/L Low 136-145 [facility] Comment on above: Performed By: #### L 501.4020, L500.4050, L503.6620, L100.0100 #### [facility] [address] [place], [address] Urea nitrogen [Mass/Vol] 11 mg/dL Normal 7-[address] [facility] Comment on above: Performed By: #### L 501.4020, L500.4050, L503.6620, L100.0100 #### [facility] [address] [place], [address] Chest 1 View (Portable)on Chest 1 View (Portable) [facility] Imaging Services [address] [place] [address] Chest 1 View (Portable) MR#: [id number] Acct: [id number] Name: ANTONIO GUPTA Rep #: [id number] : 1940 F 83 From: Manan Soto DO PCP: Dr. Victor M Rocha MD Status: ADM IN Study: Chest 1 View (Portable) Date of Exam: 03/27/24 Exam# [id number] Ordering Dr: Juice Elizabeth DO [id number] INDICATION: CHF exac w/ ongoing hypoxia EXAMINATION/TECHNIQUE : X-RAY - XR Chest 1 View COMPARISON: __ FINDINGS: LINES/DEVICES: Stable left-sided pacemaker. LUNGS: Bilateral mild pleural effusions are possible infiltrate/atelectasi s. No pneumothorax. MEDIASTINUM AND CARDIOVASCULAR STRUCTURES: Cardiac silhouette is enlarged. Central airways and mediastinal contour are unremarkable. BONES AND SOFT TISSUES: Unremarkable. RAD/Chest 1 View (Portable) IMPRESSION: Bilateral mild pleural effusions are possible infiltrate/atelectasi s. Cardiomegaly. Electronically Signed: Manan Soto DO at 17:09 EDT Reading Location ID and State: [facility] / [place] Tel [phone], Service support , CC: Dr. Juice Elizabeth DO; Dr. Victor M Rocha MD Derrick Follower: Signed Normal [facility] Consultation - Cardiologyon 03-27-2024 Consultation - Cardiology [facility] Medical Records Department [address] [place] [address] Consultation - Cardiology 03/27/24 0942 MR#: [id number] Acct: [id number] Name: ANTONIO GUPTA Rep #: [id number] : 1940 83 From: Terrance Zuniga MD PCP: Dr. Victor M Rocha MD Status:ADM IN Location: [place] [address] Assessment Plan Assessment/Plan (1) Acute hypoxemic respiratory failure: PLAN: Patient has bilateral pleural effusions and a history of heart failure preserved ejection fraction. She is diuresing well but remains on Airvo supplemental oxygen therapy. (2) Acute exacerbation of CHF (congestive heart failure): QUALIFIERS: Heart failure type: unspecified Qualified Code(s): I50.9 - Heart failure, unspecified PLAN: Patient has heart failure with preserved ejection fraction. She had a evaluation similar for an admission back in December 2023 where she diuresed with Lasix infusion and recovered with good respiratory recovery requiring no home oxygen therapy. Subsequently the patient is being evaluated by hematology for possible multiple myeloma. 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 Patient's echocardiogram showed a decrease in her LV function down to 45 to 50% with apical hypokinesis possibly consistent with Takotsubo's. Troponins were negative at 12 on admission and she had been symptomatic for greater than 6 hours. Would recommend continuing the Jardiance as well as her aggressive diuresis. Consideration may be given for thoracentesis if her pleural effusions did not resolve with aggressive diuresis. (3) Atherosclerosis of coronary artery of [place] heart without angina pectoris: QUALIFIERS: Coronary Disease-Associated Artery/Lesion type: [place] artery Qualified Code(s): I25.10 - Atherosclerotic heart disease of [place] coronary artery without angina pectoris PLAN: Patient has a history of LAD and right coronary artery stents in 2010. Post stenting catheterization was done several years later which showed the stents to be patent with normal LV function EF of 65%. (4) Presence of cardiac pacemaker: PLAN: Pacemaker is due to be evaluated for possible battery depletion. We will get this evaluated tomorrow morning. The patient was initially implanted April 2015. Last device check 02/10/2024 said that there was approximately 1 months of battery life however it was also reported that this was the middle of service for battery status. This will be sorted out and addressed in the next 24 hours. 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 (5) Longstanding persistent atrial fibrillation: PLAN: Patient has persistent chronic atrial fibrillation on Xarelto. Xarelto would need to be held if she does undergo thoracenteses. (6) Essential (primary) hypertension: PLAN: Patient's blood pressure is well-controlled on her current medical therapy. PLAN: Plan 1. Continue with aggressive IV diuresis. 2. Replace potassium per protocol. 3. Consider thoracentesis if pleural effusions continue and O2 cannot be weaned. 4. Continue further evaluation for multiple myeloma as directed by hematology. 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 5. Will evaluate the pacemaker in the next 24 hours with the device clinic at [facility]. 6. If further assistance is needed please call me directly I will be available by phone and if concrete block layer is needed in-house Dr. Parra will be covering starting March 28 in the morning. HPI Consult Data Date of Consult: 03/27/24 HPI Narrative Reason for Consultation: Hypoxia and congestive heart failure. HPI Narrative: ANTONIO GUPTA, is a 83 F who presents with a history of hypoxia. She presented to her sprigger office earlier this week short of breath slightly confused and O2 saturations that were depressed. The patient was sent to the emergency department. In the emergency department the patient was noted to be hypoxic she was placed on supplemental oxygen evaluation revealed bilateral pleural effusions and a slightly elevated BNP. The patient had a similar episode in December 2023. The patient also had renal insufficiency and anemia. Part of her evaluation with Dr. Baker revealed lytic lesions in the skull and she has had several thoracic and lumbar vertebral compression fractures. She is being evaluated for multiple myeloma her globulins are elevated. Since admission the patient has been on IV Lasix infusion with good diuresis. She remains on high flow oxygen and is saturating appropriately. The patient was evaluated in the seated position eating breakfast and carrying on a normal conversati (more content not included)... Normal [facility] Magnesiumon 03-27-2024 Magnesium [Mass/Vol] 1.8 mg/dL Normal 1.6-2.6 [facility] Comment on above: Result Comment: Slig ht Hemolysis, Result may be falsely increased. Performed By: #### L 501.4020, L500.4050, L503.6620, L100.0100 #### [facility] [address] [place], [address] Phosphoruson 03-27-2024 Phosphate [Mass/Vol] 4.0 mg/dL Normal 2.5-4.9 [facility] Comment on above: Performed By: #### L 501.4020, L500.4050, L503.6620, L100.0100 #### [facility] [address] [place], [address] Basic Metabolic Profile (BMP )on 03-26-2024 BUN/CRE 8.7 RATIO Low 10-[address] [facility] Comment on above: Performed By: #### L 500.2500, L100.0500 ####[facility] [address] [place], [address] CA,Total 9.0 mg/dL Normal 8.5-10.[address] [facility] Comment on above: Performed By: #### L 500.2500, L100.0500 ####[facility] [address] [place], [address] Chloride [Moles/Vol] 101 mmol/L Normal 98-107 [facility] Comment on above: Performed By: #### L 500.2500, L100.0500 ####[facility] [address] [place], [address] CO2 [Moles/Vol] 31.0 mmol/L Normal 21.0-32.[address] [facility] Comment on above: Performed By: #### L 500.2500, L100.0500 ####[facility] [address] [place], [address] Creatinine [Mass/Vol] 1.26 mg/dL High 0.55-1.02 [facility] Comment on above: Result Comment: The validity of the calculated GFR GFRAA in patients over 70 years has not been determined. Clinical correlation is essential. Performed By: #### L 500.2500, L100.0500 ####[facility] [address] [place], [address] ECRCL 39.38 ml/min Normal [facility] Comment on above: Performed By: #### L 500.2500, L100.0500 ####[facility] [address] [place], [address] EST GFR - AA 52 mL/min Low >[address] [facility] Comment on above: Result Comment: Afri can [place] GFR Calc Performed By: #### L 500.2500, L100.0500 ####[facility] [address] [place], [address] GAP 5 Normal 5-[address] [facility] Comment on above: Performed By: #### L 500.2500, L100.0500 ####[facility] [address] [place], [address] GFR/1.73 sq M.predicted among non-blacks MDRD (S/P/Bld) [Vol rate/Area] 43 mL/min/{1.73_m2} Low >[address] [facility] Comment on above: Result Comment: Non- GFR Calc Performed By: #### L 500.2500, L100.0500 ####[facility] [address] [place], [address] Glucose [Mass/Vol] 74 mg/dL Normal 74-106 [facility] Comment on above: Performed By: #### L 500.2500, L100.0500 ####[facility] [address] [place], [address] Potassium [Moles/Vol] 3.6 mmol/L Normal 3.5-5.1 [facility] Comment on above: Performed By: #### L 500.2500, L100.0500 ####[facility] [address] [place], [address] Sodium [Moles/Vol] 137 mmol/L Normal 136-145 [facility] Comment on above: Performed By: #### L 500.2500, L100.0500 ####[facility] [address] [place], [address] Urea nitrogen [Mass/Vol] 11 mg/dL Normal 7-[address] [facility] Comment on above: Performed By: #### L 500.2500, L100.0500 ####[facility] [address] [place], [address] CBC-Complete Blood Cnt No Di ffon 03-26-2024 Erythrocyte distribution width (RBC) [Ratio] 16.5 % High 11.6-14.[address] [facility] Comment on above: Performed By: #### L 500.2500, L100.0500 ####[facility] [address] [place], [address] Hematocrit (Bld) [Volume fraction] 35.2 % Low 37-[address] [facility] Comment on above: Performed By: #### L 500.2500, L100.0500 ####[facility] [address] [place], [address] Hemoglobin (Bld) [Mass/Vol] 10.8 g/dL Low 12.0-15.[address] [facility] Comment on above: Performed By: #### L 500.2500, L100.0500 ####[facility] [address] [place], [address] MCH (RBC) [Entitic mass] 26.7 pg Low 27.0-32.[address] [facility] Comment on above: Performed By: #### L 500.2500, L100.0500 ####[facility] [address] [place], [address] MCHC (RBC) [Mass/Vol] 30.7 g/dL Low 32-36 [facility] Comment on above: Performed By: #### L 500.2500, L100.0500 ####[facility] [address] [place], [address] MCV (RBC) [Entitic vol] 87.1 fL Normal 81-99 [facility] Comment on above: Performed By: #### L 500.2500, L100.0500 ####[facility] [address] [place], [address] Platelet mean volume (Bld) [Entitic vol] 9.2 fL Normal 6.2-12.[address] [facility] Comment on above: Performed By: #### L 500.2500, L100.0500 ####[facility] [address] [place], [address] Platelets (Bld) [#/Vol] 321 10*3/uL Normal 150-[address] [facility] Comment on above: Performed By: #### L 500.2500, L100.0500 ####[facility] [address] [place], [address] RBC (Bld) [#/Vol] 4.04 10*6/uL Low 4.2-5.4 [facility] Comment on above: Performed By: #### L 500.2500, L100.0500 ####[facility] [address] [place], [address] RDW SD 52.5 fl High 35.1-43.[address] [facility] Comment on above: Performed By: #### L 500.2500, L100.0500 ####[facility] [address] [place], [address] WBC (Bld) [#/Vol] 6.5 10*3/uL Normal 4.4-11.0 [facility] Comment on above: Performed By: #### L 500.2500, L100.0500 ####[facility] [address] [place], [address] Abdomen/Pelvis without Conto n 03-25-2024 Abdomen/Pelvis without Cont [facility] Imaging Services [address] [place] [address] Abdomen/Pelvis without Cont MR#: [id number] Acct: [id number] Name: ANTONIO GUPTA Rep #: [id number] : 1940 F 83 From: Albert brennan MD PCP: Dr. Victor M Rocha MD Status: ADM IN Study: Abdomen/Pelvis without Cont Date of Exam: 03/13 10/03 Exam# [id number] Ordering Dr: Juice Elizabeth DO [id number] INDICATION: worsening abdominal/flank pain EXAMINATION: CT Abdomen And Pelvis W/O Contrast Injection TECHNIQUE: Helically acquired images were obtained of the abdomen and pelvis without the use of IV contrast. A radiation dose optimization technique was used for this scan. Oral contrast: None. COMPARISON: None FINDINGS: Evaluation of the solid organs and vascular structures is limited without intravenous contrast. Visualized lung bases: Large bilateral pleural effusions. Liver: Unremarkable Gallbladder: Unremarkable Spleen: Unremarkable Pancreas: Unremarkable Adrenal Glands: Unremarkable Kidneys: Unremarkable Vasculature: Severe aortoiliac atherosclerotic disease. GI Tract: Hiatal hernia. Scattered colonic diverticula. Short segment circumferential wall thickening of the sigmoid colon with surrounding mesenteric pattern. Lymphadenopathy: None Peritoneum: Small volume free fluid in the pelvis. Bladder: Quinones catheter in place. Reproductive organs: Unremarkable Bones/Soft tissues: Refer to CT thoracic and lumbar spine for details. CT/Abdomen/Pelvis without Cont IMPRESSION: Acute sigmoid diverticulitis. Large bilateral pleural effusions. Hiatal hernia. Electronically Signed: Albert Nicolas MD at 17:00 EDT , CC: Dr. Juice Elizabeth DO; Dr. Victor M Rocha MD Derrick Follower: Signed Normal [facility] BNP,B-Type NATRIURETIC PEPTI Keisha 03-25-2024 Natriuretic peptide B (Bld) [Mass/Vol] 281.5 pg/mL High 0-[address] [facility] Comment on above: Performed By: #### L 501.4020, L500.4050, L503.6620, L100.0100 #### [facility] [address] [place], [address] Blood Gases by [facility] 024 MANJU TEST Positive Normal [facility] Comment on above: Performed By: #### L 501.4020, L500.4050, L503.6620, L100.0100 #### [facility] [address] [place], [address] Base excess Calc (Bld) [Moles/Vol] 2 mmol/L Normal -2 to +[address] [facility] Comment on above: Performed By: #### L 501.4020, L500.4050, L503.6620, L100.0100 #### [facility] [address] [place], [address] Blood Gas Type ART [facility] Comment on above: Performed By: #### L 501.4020, L500.4050, L503.6620, L100.0100 #### [facility] [address] [place], [address] CO2 [Moles/Vol] 27 mmol/L Normal [facility] Comment on above: Performed By: #### L 501.4020, L500.4050, L503.6620, L100.0100 #### [facility] [address] [place], [address] FI02 6.0 [facility] Comment on above: Performed By: #### L 501.4020, L500.4050, L503.6620, L100.0100 #### [facility] [address] [place], [address] HCO3 (Bld) [Moles/Vol] 26.2 mmol/L High 22-26 [facility] Comment on above: Performed By: #### L 501.4020, L500.4050, L503.6620, L100.0100 #### [facility] [address] [place], [address] Mode Not entered [facility] Comment on above: Performed By: #### L 501.4020, L500.4050, L503.6620, L100.0100 #### [facility] [address] [place], [address] O2 Delivery Dev Cannula Normal [facility] Comment on above: Performed By: #### L 501.4020, L500.4050, L503.6620, L100.0100 #### [facility] [address] [place], [address] pCO2 39.7 mmHg Normal 35-[address] [facility] Comment on above: Performed By: #### L 501.4020, L500.4050, L503.6620, L100.0100 #### [facility] [address] [place], [address] pH (Bld) 7.43 [pH] Normal 7.35-7.[address] [facility] Comment on above: Performed By: #### L 501.4020, L500.4050, L503.6620, L100.0100 #### [facility] [address] [place], [address] PO2 57 mmHG Low 75-[address] [facility] Comment on above: Performed By: #### L 501.4020, L500.4050, L503.6620, L100.0100 #### [facility] [address] [place], [address] SITE R Radial Normal [facility] Comment on above: Performed By: #### L 501.4020, L500.4050, L503.6620, L100.0100 #### [facility] [address] [place], [address] SO2 90 Low 95-[address] [facility] Comment on above: Performed By: #### L 501.4020, L500.4050, L503.6620, L100.0100 #### [facility] [address] [place], [address] CBC W/Diff, Automatedon 09- Absolute Lymph 0.96 X10 3/uL Normal 0.83-4.[address] [facility] Comment on above: Performed By: #### L 501.4020, L500.4050, L503.6620, L100.0100 #### [facility] [address] [place], [address] Absolute Neut 6.6 X10 3/uL Normal 2.0-7.[address] [facility] Comment on above: Performed By: #### L 501.4020, L500.4050, L503.6620, L100.0100 #### [facility] [address] [place], [address] Basophils/100 WBC (Bld) 0.5 % Normal 0-1 [facility] Comment on above: Performed By: #### L 501.4020, L500.4050, L503.6620, L100.0100 #### [facility] [address] [place], [address] Eosinophils/100 WBC (Bld) 2.3 % Normal 0-[address] [facility] Comment on above: Performed By: #### L 501.4020, L500.4050, L503.6620, L100.0100 #### [facility] [address] [place], [address] Erythrocyte distribution width (RBC) [Ratio] 16.7 % High 11.6-14.[address] [facility] Comment on above: Performed By: #### L 501.4020, L500.4050, L503.6620, L100.0100 #### [facility] [address] [place], [address] Hematocrit (Bld) [Volume fraction] 39.0 % Normal 37-[address] [facility] Comment on above: Performed By: #### L 501.4020, L500.4050, L503.6620, L100.0100 #### [facility] [address] [place], [address] Hemoglobin (Bld) [Mass/Vol] 12.0 g/dL Normal 12.0-15.[address] [facility] Comment on above: Performed By: #### L 501.4020, L500.4050, L503.6620, L100.0100 #### [facility] [address] [place], [address] IG% 0.300 Normal 0.0-0.[address] [facility] Comment on above: Result Comment: IG% - Immature Granulocytes (promyelocytes, myelocytes and metamyelocytes) > 1% indicates that a LEFT SHIFT is Present. Performed By: #### L 501.4020, L500.4050, L503.6620, L100.0100 #### [facility] [address] [place], [address] Lymphocytes/100 WBC (Bld) 11.2 % Low 19-[address] [facility] Comment on above: Performed By: #### L 501.4020, L500.4050, L503.6620, L100.0100 #### [facility] [address] [place], [address] MCH (RBC) [Entitic mass] 26.7 pg Low 27.0-32.[address] [facility] Comment on above: Performed By: #### L 501.4020, L500.4050, L503.6620, L100.0100 #### [facility] [address] [place], [address] MCHC (RBC) [Mass/Vol] 30.8 g/dL Low 32-36 [facility] Comment on above: Performed By: #### L 501.4020, L500.4050, L503.6620, L100.0100 #### [facility] [address] [place], [address] MCV (RBC) [Entitic vol] 86.9 fL Normal 81-99 [facility] [facility] Comment on above: Performed By: #### L 501.4020, L500.4050, L503.6620, L100.0100 #### [facility] [address] [place], [address] Monocytes/100 WBC (Bld) 9.3 % Normal 0-10 [facility] Comment on above: Performed By: #### L 501.4020, L500.4050, L503.6620, L100.0100 #### [facility] [address] [place], [address] Neutrophils/100 WBC (Bld) 76.4 % High 47-[address] [facility] Comment on above: Performed By: #### L 501.4020, L500.4050, L503.6620, L100.0100 #### [facility] [address] [place], [address] Nucleated RBC (Bld) [#/Vol] 0 10*3/uL Normal 0-[address] [facility] Comment on above: Performed By: #### L 501.4020, L500.4050, L503.6620, L100.0100 #### [facility] [address] [place], [address] Platelet mean volume (Bld) [Entitic vol] 9.7 fL Normal 6.2-12.[address] [facility] Comment on above: Performed By: #### L 501.4020, L500.4050, L503.6620, L100.0100 #### [facility] [address] [place], [address] Platelets (Bld) [#/Vol] 385 10*3/uL Normal 150-[address] [facility] Comment on above: Performed By: #### L 501.4020, L500.4050, L503.6620, L100.0100 #### [facility] [address] [place], [address] RBC (Bld) [#/Vol] 4.49 10*6/uL Normal 4.2-5.4 [facility] Comment on above: Performed By: #### L 501.4020, L500.4050, L503.6620, L100.0100 #### [facility] [address] [place], [address] RDW SD 52.8 fl High 35.1-43.[address] [facility] Comment on above: Performed By: #### L 501.4020, L500.4050, L503.6620, L100.0100 #### [facility] [address] [place], [address] WBC (Bld) [#/Vol] 8.6 10*3/uL Normal 4.4-11.0 [facility] Comment on above: Performed By: #### L 501.4020, L500.4050, L503.6620, L100.0100 #### [facility] [address] [place], [address] CNOVSPon 03-25-2024 CNOVSP Visit (SP) Office (HEMAWS) ANTONIO GUPTA ([id number]) 1940 F Date Time Provider Department 03/25/24 9:20 AM JOSHUA BAKER During your visit today, we recorded the following information about you: Temperature Pulse Blood pressure Weight 97.6 degrees 90/minute 137/72 93.2 kg Joshua Baker DO 03/25/2024 9:56 AM Signed DIAGNOSES: 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 HPI: The patient is an 83 year-old female with history of arrhythmia, status post pacemaker and radiofrequency ablation. Patient had been on Xarelto for atrial fibrillation since 2015. 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 Root for increased fatigue and was noted to have anemia. Patient had an occasional black tarry stool and rectal bleeding as well. She developed progressive anemia with increasing symptom fatigue, dyspnea exertion and palpitation. She denied having any previous blood transfusion. Additional tests showed she has moderate renal insufficiency and serum protein electrophoresis also showed a M protein, 0.73 gram per deciliter, IgG lambda. Patient has no fever, chills or night sweats. She has no bone pain, arthritis, headache or peripheral neuropathy. She has some lightheadedness and dizziness along with restless leg symptom and weakness from anemia. Patient has no weight loss, cough, chest pain or shortness of breath at rest. She had a screening colonoscopy in 2011. Patient has no history of peptic ulcer disease, but she is taking aspirin along with Xarelto. Has h/o [place] (PCI with stents), atrial fibrillation (on rivaroxaban), PPM, DM2, colitis and GERD. Per initial office visit with me: Very fatigued. Significant dyspnea with exertion. Panting. Uses wheeled walker. Legs get very weak. No chest or pressure. Occasional numbness in left foot. No black or bloody stools. Very constipated. Takes Miralax and has stool incontinence. No LE swelling. OV 02/26/2024: Received 5 doses of iron sucrose 11/25 through 12/23/2023. Admitted 02/06/2024 for CHF. Presented with dyspnea on exertion. Was having back pain. Evidently diagnosed with T8 fracture. Saw ortho. Brace. Oxycodone. Debilitating--can't do housework. In Wheelchair today. Recent burn from heating pad. On Lasix daily. Shortness of breat better. Presents for ongoing hematologic management. Interim history: More dyspnea. Pulse ox down. Lasix not making her urinate more. Dr. Beltran performed kyphoplasty this week. Hurts to breath. No LE edema. PMH, medications and allergies personally reviewed by me today. Any changes documented in appropriate section. PHYSICAL EXAM: Vitals: Blood pressure 137/72, pulse 90, temperature 36.4 ?C (97.6 ?F), temperature source Temporal, weight 93.2 kg (205 lb 8 oz), SpO2 (!) 82%. Fatigued-appearing and in no acute distress. EYES: Sclerae are anicteric bilaterally. RESPIRATORY: Inspiratory breath sounds are diminished at the bases. CARDIOVASCULAR: Rhythm is regular. ABDOMEN: The abdomen is nondistended. Extremities: No swelling or edema. SKIN: No jaundice. LABS: Latest Ref Rng 11/17/2023 Albumin 3.43 - 5.41 g/dL 4.15 Alpha 1 Globulin 0.18 - 0.43 g/dL 0.30 Alpha 2 Globulin 0.42 - 0.98 g/dL 0.72 Beta Globulin 0.61 - 1.17 g/dL 2.59 (H) Gamma Globulin 0.53 - 1.51 g/dL 0.83 Interpretation (Prot Electro) No definitive M protein is identified on protein electrophoresis. An M protein is identified on protein electrophoresis. ! Interpretation Comment for Protein Electrophoresis See separate immunofixation report for characterization of monoclonal gammopathy. M-Protein Location Beta Fraction 1 M-Protein Concentration <=0.00 g/dL 1.54 (H) SPE Staff Review Reviewed by Kristy Quiles M.D., Ph.D IgG 700 - 1,600 mg/dL 2,591 (H) IgA 70 - 400 mg/dL 378 IgM 40 - 230 mg/dL 78 MPA Result No M protein is identified. M protein is present. ! Interpretation (MPA) Atypical restricted bands are present in the IgG and lambda regions. Consistent with IgG lambda monoclonal gammopathy. 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 -Stable to improved renal function over the last year. -Reviewed whole body CT. -Needs MRI skull base, spine and pelvis or PET since she may not tolerate MRI given pain. -Needs bone marrow biopsy. -However she is hypoxemic. Plan: -To ED at [facility]. -Spoke to Dr. Dodge. Portions of this documentation were copied and pasted from previous office visit notes in order to provide a cohesive (more content not included)... Normal [facility] Chest 1 View (Portable)on Chest 1 View (Portable) [facility] Imaging Services [address] [place] [address] [id number] Chest 1 View (Portable) MR#: [id number] Acct: [id number] Name: ANTONIO GUPTA Rep #: [id number] : 1940 F 83 From: Bello snyder MD PCP: Dr. Victor M Rocha MD Status: PRE ER Study: Chest 1 View (Portable) Date of Exam: 03/25/24 Exam# [id number] Ordering Dr: Geoffrey Dodge MD [id number] STUDY: X-RAY CHEST REASON FOR EXAM: Female, 83 years old. Respiratory failure, cyanosis, decreased breath so TECHNIQUE: Single AP portable view of the chest. COMPARISON: Comparison is made with prior study dated December 14, 2023. FINDINGS: EKG electrodes are seen. Vascular congestion and CHF. Stable bibasilar atelectasis and/or infiltration superimposed on chronic basilar scarring. Blunting of the left costophrenic angle. A left-sided dual-chamber pacemaker is seen. Mild cardiomegaly. Normal mediastinum and radha. Normal visualized pulmonary arteries. There is atherosclerotic calcification of the aortic arch with tortuosity. There are diffuse degenerative changes of the visualized thoracic spine. Normal visualized ribs, clavicles, and shoulders. There is no demonstrated abnormality of the visualized soft tissue structures of the upper abdomen. RAD/Chest 1 View (Portable) IMPRESSION: Mild degree of CHF with superimposed bibasilar infiltration and/or atelectasis on the chronic basilar scarring. Cardiomegaly. Electronically Signed: Bello Lozoya MD at 10:30 EDT , CC: Dr. Victor M Rocha MD; Dr. Geoffrey Dodge MD Derrick Follower: Signed Normal [facility] Comprehensive Metabolic Prof ilon 03-25-2024 Albumin [Mass/Vol] 3.3 g/dL Normal 3.2-5.0 [facility] Comment on above: Order Comment: 'TROP ' Serial specimen #1, #2 or #3: 1 Performed By: #### L 501.4020, L500.4050, L503.6620, L100.0100 #### [facility] [address] [place], [address] Albumin/Globulin [Mass ratio] 0.6 {ratio} Low 0.9-2.[address] [facility] Comment on above: Order Comment: 'TROP ' Serial specimen #1, #2 or #3: 1 Performed By: #### L 501.4020, L500.4050, L503.6620, L100.0100 #### [facility] [address] [place], [address] ALK P 161 U/L High 45-[address] [facility] Comment on above: Order Comment: 'TROP ' Serial specimen #1, #2 or #3: 1 Performed By: #### L 501.4020, L500.4050, L503.6620, L100.0100 #### [facility] [address] [place], [address] ALT [Catalytic activity/Vol] 10 U/L Low 13-[address] [facility] Comment on above: Order Comment: 'TROP ' Serial specimen #1, #2 or #3: 1 Performed By: #### L 501.4020, L500.4050, L503.6620, L100.0100 #### [facility] [address] [place], [address] AST [Catalytic activity/Vol] 17 U/L Normal 15-[address] [facility] Comment on above: Order Comment: 'TROP ' Serial specimen #1, #2 or #3: 1 Performed By: #### L 501.4020, L500.4050, L503.6620, L100.0100 #### [facility] [address] [place], [address] Bilirubin [Mass/Vol] 0.50 mg/dL Normal 0.20-1.00 [facility] Comment on above: Order Comment: 'TROP ' Serial specimen #1, #2 or #3: 1 Result Comment: For patients on eltrombopag therapy, use of Dimension [place] TBIL is not recommended. Performed By: #### L 501.4020, L500.4050, L503.6620, L100.0100 #### [facility] [address] [place], [address] BUN/CRE 9.5 RATIO Low 10-[address] [facility] Comment on above: Order Comment: 'TROP ' Serial specimen #1, #2 or #3: 1 Performed By: #### L 501.4020, L500.4050, L503.6620, L100.0100 #### [facility] [address] [place], [address] CA,Total 9.4 mg/dL Normal 8.5-10.[address] [facility] Comment on above: Order Comment: 'TROP ' Serial specimen #1, #2 or #3: 1 Performed By: #### L 501.4020, L500.4050, L503.6620, L100.0100 #### [facility] [address] [place], [address] Chloride [Moles/Vol] 99 mmol/L Normal 98-107 [facility] Comment on above: Order Comment: 'TROP ' Serial specimen #1, #2 or #3: 1 Performed By: #### L 501.4020, L500.4050, L503.6620, L100.0100 #### [facility] [address] [place], [address] CO2 [Moles/Vol] 24.0 mmol/L Normal 21.0-32.[address] [facility] Comment on above: Order Comment: 'TROP ' Serial specimen #1, #2 or #3: 1 Performed By: #### L 501.4020, L500.4050, L503.6620, L100.0100 #### [facility] [address] [place], [address] Creatinine [Mass/Vol] 1.37 mg/dL High 0.55-1.02 [facility] Comment on above: Order Comment: 'TROP ' Serial specimen #1, #2 or #3: 1 Result Comment: The validity of the calculated GFR GFRAA in patients over 70 years has not been determined. Clinical correlation is essential. Performed By: #### L 501.4020, L500.4050, L503.6620, L100.0100 #### [facility] [address] [place], [address] ECRCL 36.05 ml/min Normal [facility] Comment on above: Order Comment: 'TROP ' Serial specimen #1, #2 or #3: 1 Performed By: #### L 501.4020, L500.4050, L503.6620, L100.0100 #### [facility] [address] [place], [address] EST GFR - AA 47 mL/min Low >[address] [facility] Comment on above: Order Comment: 'TROP ' Serial specimen #1, #2 or #3: 1 Result Comment: Afri can [place] GFR Calc Performed By: #### L 501.4020, L500.4050, L503.6620, L100.0100 #### [facility] [address] [place], [address] GAP 9 Normal 5-[address] [facility] Comment on above: Order Comment: 'TROP ' Serial specimen #1, #2 or #3: 1 Performed By: #### L 501.4020, L500.4050, L503.6620, L100.0100 #### [facility] [address] [place], [address] GFR/1.73 sq M.predicted among non-blacks MDRD (S/P/Bld) [Vol rate/Area] 39 mL/min/{1.73_m2} Low >[address] [facility] Comment on above: Order Comment: 'TROP ' Serial specimen #1, #2 or #3: 1 Result Comment: Non- GFR Calc Performed By: #### L 501.4020, L500.4050, L503.6620, L100.0100 #### [facility] [address] [place], [address] Globulin (S) [Mass/Vol] 5.8 g/dL High 2.2-4.2 [facility] Comment on above: Order Comment: 'TROP ' Serial specimen #1, #2 or #3: 1 Performed By: #### L 501.4020, L500.4050, L503.6620, L100.0100 #### [facility] [address] [place], [address] Glucose [Mass/Vol] 170 mg/dL High 74-106 [facility] Comment on above: Order Comment: 'TROP ' Serial specimen #1, #2 or #3: 1 Result Comment: Fast ing Glucose result greater than or equal to 126 mg/dL suggests DIABETES MELLITUS per A.D.A. criteria. Performed By: #### L 501.4020, L500.4050, L503.6620, L100.0100 #### [facility] [address] [place], [address] Potassium [Moles/Vol] 2.9 mmol/L Low 3.5-5.1 [facility] Comment on above: Order Comment: 'TROP ' Serial specimen #1, #2 or #3: 1 Performed By: #### L 501.4020, L500.4050, L503.6620, L100.0100 #### [facility] [address] [place], [address] Sodium [Moles/Vol] 132 mmol/L Low 136-145 [facility] Comment on above: Order Comment: 'TROP ' Serial specimen #1, #2 or #3: 1 Performed By: #### L 501.4020, L500.4050, L503.6620, L100.0100 #### [facility] [address] [place], [address] T PROT 9.1 g/dL High 6.4-8.[address] [facility] Comment on above: Order Comment: 'TROP ' Serial specimen #1, #2 or #3: 1 Performed By: #### L 501.4020, L500.4050, L503.6620, L100.0100 #### [facility] [address] [place], [address] Urea nitrogen [Mass/Vol] 13 mg/dL Normal 7-[address] [facility] Comment on above: Order Comment: 'TROP ' Serial specimen #1, #2 or #3: 1 Performed By: #### L 501.4020, L500.4050, L503.6620, L100.0100 #### [facility] [address] [place], [address] Echo Limited w/Contraston Echo Limited w/Contrast [facility] [address] [place] [address] Echo Limited w/Contrast 03/25/24 1610 MR#: [id number] Acct: [id number] Name: ANTONIO GUPTA Rep #: [id number] : 1940 83 From: Annabella Garcia MD Attending Dr: Dr. Juice Elizabeth DO Status : ADM IN Ordering : Juice Elizabeth DO Date: 03/25/24 Location: U Sex: F C Admitted: 03/25/24 Reason For Study: CHF Procedure This was a limited 2D transthoracic echocardiogram. Contrast injection was performed. Exam performed portable in patient room. Left Ventricle Normal LV size. The estimated ejection fraction is 45-50 %. Unable to assess diastolic dysfunction. [place] : Akinetic. Right Ventricle Normal RV size. ICD or pacer leads identified within the right ventricle. Normal systolic function. Atria There is severe biatrial dilatation. ICD or pacer leads identified within the right atrium. Mitral Valve There is moderate to severe mitral annular calcification. There is no mitral valve stenosis. Moderate (2+) mitral valve insufficiency. Tricuspid Valve There is no tricuspid stenosis. Mild to moderate (1-2+) tricuspid valve insufficiency. Pulmonary artery systolic pressure is 70 mmHg. Aortic Valve Trisinus/trileaflet aortic valve. There is no aortic stenosis. Mild (1+) aortic valve insufficiency. Great Vessels Normal aortic root. Pericardium/Pleural No pericardial effusion. Medication Diluted definity 1.5ml given slow IV push to enhance endocardial definition. MMode/2D Measurements Calculations LVIDd: 3.9 cm IVSd: 1.0 cm LVAd ap4: 26.3 cm2 LVIDs: 2.3 cm LVPWd: 1.1 cm LVLd ap4: 7.3 cm FS: 40.5 % EDV(MOD-sp4): 77.1 ml EDV(sp4-el): 80.3 ml LVAs ap4: 17.7 cm2 LVLs ap4: 6.7 cm ESV(MOD-sp4): 38.5 ml ESV(sp4-el): 40.0 ml EF(MOD-sp4): 50.0 % EF(sp4-el): 50.2 % SV(MOD-sp4): 38.6 ml SV(sp4-el): 40.3 ml Doppler Measurements Calculations TR max niyah: 393.8 cm/sec TR max P.0 mmHg ECHO/Echo Limited w/Contrast Interpretation Summary The estimated ejection fraction is 45-50 %. Unable to assess diastolic dysfunction. [place] : Akinetic. Moderate (2+) mitral valve insufficiency. Mild (1+) aortic valve insufficiency. Ordering Physician: Juice Elizabeth Referring Physician: Victor M Rocha Performed By: Phan Rodrigez, HEMANT, RVT 03/26/24 1008 Date Annabella Garcia MD CC: Dr. Juice Elizabeth DO; Dr. Victor M Rocha MD Date Dictated: 03/25/24 1610 Date Transcribed: 03/26/24 1008 Derrick Follower: Signed Normal [facility] Emergency Department Summary on 03-25-2024 Emergency Department Summary [facility] Medical Records Department [address] [place] [address] Emergency Department Summary 03/25/24 MR#: [id number] Acct: [id number] Name: ANTONIO GUPTA Rep #: [id number] : 1940 83 From: Geoffrey Dodge MD PCP: Dr. Victor M Rocha MD Status:REG ER Location: ED HPI History of Present Illness Chief Complaint: Shortness of Breath Detail of Chief Complaint: Shortness of breath started couple days ago Informant: patient and other (Dr. Joshua Baker called prior to patient arrival because of a pulse ox of 82%.) Onset/Context/Timing Onset: Days Context: sudden and unknown Timing: Continuous Quality: Positive for Dyspnea on exertion; Negative for Orthopnea, PND or Wheezing Maximum Severity: Severe Worsened by: Exertion and Lying flat Relieved by: Nothing Associated Symptoms Negative for cough, rhinorrhea, post nasal drip, ear pain, fever, sore throat, subjective, chills, sweats, clear sputum, white sputum, yellow sputum, green sputum or other Chest Pain: Positive for Intermittent (Left rib cage pain. Patient states she was told this would occur after the procedure, kyphoplasty) Narrative Narrative: Patient is a 83-year-old woman who has history of compression fracture and status post kyphoplasty beginning of this week, coronary artery disease with stent placement, congestive heart failure, sick sinus syndrome, longstanding persistent atrial fibrillation, essential hypertension, hyperlipidemia, secondary pulmonary hypertension and multiple myeloma. She arrives from Josuha Baker's office. She was hypoxic. She appears cyanotic. She has conversational dyspnea. Patient is not a good informant. She has history of monoclonalopathy that she was seen by Dr. Oneill. Patient states she cannot lie flat. She denies PND. She denies chest discomfort. Patient had recent total body scan which revealed [address] Joshua Baker. Once patient is stabilized will need to work these up. PE Risk Factors: Positive for Cancer and Prior DVT or PE; Negative for OCP + Smoking + > 35, Recent immobilization, Recent surgery or Recent travel Prior similar symptoms: Yes Recent Illness/Hospitalizati on: No PFSH PFSH Medical History Iron deficiency anemia History of non-ST elevation myocardial infarction (NSTEMI) (2013) Longstanding persistent atrial fibrillation Essential (primary) hypertension Anxiety Hypothyroidism Hyperlipidemia Secondary pulmonary arterial hypertension Atherosclerosis of coronary artery of [place] heart without angina pectoris Paroxysmal atrial fibrillation Paroxysmal atrial flutter Sick sinus syndrome Home Medications ???Medication ???Instructions ???Recorded ???Last Taken ???Type buspirone 15 mg tablet 15 mg PO BID ANXIETY 06/02/13 Unknown History omeprazole 40 mg capsule,delayed 40 mg PO DAILY ACID REFLUX 06/02/13 09/15/16 08:30 History release nitroglycerin 0.4 mg sublingual 0.4 mg sublingual Q5M PRN CHEST 04/21/15 Unknown History tablet PAIN glimepiride 4 mg tablet 4 mg PO DAILY DIABETES 01/24/22 Unknown History acetaminophen 500 mg capsule 1,000 mg PO Q4H PRN PAIN 02/17/23 Unknown History amitriptyline 50 mg tablet 50 mg PO QHS DEPRESSION 02/17/23 Unknown History empagliflozin 10 mg tablet 10 mg PO DAILY DIABETES 02/17/23 Unknown History (Jardiance) ketotifen fumarate 0.025 % (0.035 1 drp ophthalmic (eye) BID 02/17/23 Unknown History %) eye drops ([place]) ITCHING/ALLERGIES amlodipine 10 mg tablet 10 mg PO DAILY BLOOD PRESSURE 12/14/23 Unknown History levothyroxine 100 mcg tablet 100 mcg PO DAILY THYROID 12/14/23 Unknown History (Synthroid) rivaroxaban 20 mg tablet (Xarelto) 20 mg PO DAILY BLOOD THINNER 12/14/23 Unknown History simvastatin 20 mg tablet 20 mg PO QHS CHOLESTEROL 12/14/23 Unknown History potassium chloride 20 mEq 20 meq PO DAILY #30 tabs 12/16/23 Unknown Rx tablet,extended release(part/cryst) furosemide 40 mg tablet (Lasix) 40 mg PO DAILY #60 tabs 12/17/23 Unknown Rx metoprolol succinate 50 mg 50 mg PO DAILY #60 tabs 12/17/23 Unknown Rx tablet,extended release 24 hr oxycodone-acetaminoph en 5 mg-325 1 tab PO Q6H PRN pain 3 days #12 02/06/24 Unknown Rx mg tablet (Percocet) tabs losartan 100 mg tablet 100 mg PO DAILY 03/25/24 Unknown History Allergy/AdvReac Type Severity Reaction Status Date / Time poison fany extract (Poison Allergy Rash Verified 03/25/24 09:54 Fany Extract) Sulfa (Sulfonamide Allergy Hives Verified 03/25/24 09:54 Antibiotics) Family History Mother Cancer Father Cancer Brother CAD (coronary artery disease) Sister CAD (coronary artery disease) Surgical History History of tubal ligation History of (more content not included)... Normal [facility] H AND P Exam - Hospitaliston 03-25-2024 H&P Exam - Hospitalist [facility] Medical Records Department [address] [place] [address] H P Exam - Hospitalist 03/25/24 1219 MR#: [id number] Acct: [id number] Name: ANTONIO GUPTA Rep #: [id number] : 1940 83 From: Juice Elizabeth DO PCP: Dr. iVctor M Rocha MD Status:ADM IN Location: [place] [address]-1 HPI - General General Date of Admission: 03/25/24 Date of Service: 03/25/24 Chief Complaint: Worsening shortness of breath with hypoxia HPI Narrative ANTONIO GUPTA, is a 83 F who presented to [facility] ED on 03/25/2024 with worsening shortness of breath and hypoxia concerning for a heart failure exacerbation. Patient was hospitalized here in early December with a similar presentation. She presented at that time with volume overload and bilateral pleural effusions and acute hypoxic respiratory failure requiring both BiPAP and high flow nasal cannula. She was admitted to the ICU then but did not require intubation. She improved with aggressive diuresis. Her echo at that time showed an EF of 55% with mild pulmonary hypertension and severely enlarged LA and RA but no other significant abnormalities. She was able to be weaned off supplemental oxygen completely prior to that discharge. It was thought that some worsening of her known anemia could be attributing to her heart failure exacerbation. She saw cardiology in the office in early February; was noted to have more fatigue than her usual at that time but was otherwise hemodynamically stable and breathing well on room air. She had a stress test done prior to that appointment that was normal. With regard to other medical issues, patient follows with Dr. Baker for known history of anemia and newly diagnosed monoclonal gammopathy. She also has history of worsening chronic back pain with known compression fractures at T8 and T12. Per Dr. Baker's note, she is currently undergoing further workup for possible conversion of her monoclonal gammopathy to multiple myeloma. She saw Dr. Baker in the office this morning but he noted that she was short of breath and she was found to be hypoxic to 82%, so he sent her to the ED here for further evaluation. On arrival here she was started on low-flow nasal cannula but continued to have some increased work of breathing and hypoxia so she was placed on high flow nasal cannula. Chest x- ray showed a mild degree of CHF with suspected bilateral pleural effusions and cardiomegaly. BNP was mildly elevated from previous. Was suspected that patient had a recurrent heart failure exacerbation similar to December and she was given a dose of IV Lasix. Hospitalist was then contacted for admission. I saw the patient at bedside in the ED, was present. Patient was satting in the low 90s on high flow nasal cannula with mild increased work of breathing. Patient's primary concern was that she had ongoing mid back pain that wraps around to her left side. She stated that the pain was much worse today than previous days. Patient notably had a T8 kyphoplasty done with Dr. Ott with pain management on this past Thursday 03/22. She has been note that she tolerated the procedure well and was discharged home from the outpatient surgical center. She developed worsening shortness of breath with exertion after that. She has chronic back pain but states that it has gotten significantly worse over the past day or so. She was given a dose of IV morphine before I saw her with only some relief. Patient also reported some generalized abdominal discomfort when I saw her. Obtained CT T-spine, L-spine and abdomen pelvis for further evaluation. CT T-spine showed worsening moderate compression deformity of T11, stable severe compression deformities of T8 and T12, no other new spinal abnormalities. It notably did also show worsening large bilateral pleural effusions. CT L-spine showed stable severe chronic compression deformity of T12 and unchanged severe canal stenosis of L4-L5, no acute abnormalities. CT abdomen pelvis again showed large bilateral pleural effusions with a hiatal hernia, and also showed an area of acute sigmoid diverticulitis. Given the significant pleural effusions, patient was started on an IV Lasix drip on admission. Was also started on IV Zosyn and given a clear liquid diet for the acute diverticulitis. Was then admitted for further management. [facility] Medical History Iron deficiency anemia History of non-ST elevation myocardial infarction (NSTEMI) (2013) Longstanding persistent atrial fibrillation Essential (primary) hypertension Anxiety Hypothyroidism Hyperlipidemia Secondary pulmonary arterial hypertension Atherosclerosis of coronary artery of [place] heart without angina pectoris Paroxysmal atrial fibrillation Paroxysmal atrial flutter Sick sinus syndrome Home Medications ???Medication ???Instru (more content not included)... Normal [facility] L501.4020on 03-25-2024 TROPONIN-I HS 12 pg/mL Normal 3.0-54.[address] [facility] Comment on above: Order Comment: 'TROP ' Serial specimen #1, #2 or #3: 1 Result Comment: Pleroxy younger Note: New Test Units and Gender Specific Reference Ranges. For more information see Policy Stat Procedure [place] High Sensitivity Troponin (TNIH) and attachments. Performed By: #### L 501.4020, L500.4050, L503.6620, L100.0100 #### [facility] Laboratory [address] [place], [address] Spine Lumbar without Contras ton 03-25-2024 Spine Lumbar without Contrast [facility] Imaging Services [address] [place] [address] Spine Lumbar without Contrast MR#: [id number]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 ####[facility]ITALNCLIA [id number] [place] [address] [place] Hematocrit (Bld) [Volume fraction] 39.0 % Normal 36.0-46.0 [facility] Comment on above: Order Comment: Speci men Type: BLOOD SPECIMENOrdering Facility: [facility] Address: [address] [place] [address] Performed By: #### 5 7021-8 ####[facility]ITALNCLIA [id number] [place] [address] [place] Hemoglobin (Bld) [Mass/Vol] 12.1 g/dL Normal 11.5-15.5 [facility] Comment on above: Order Comment: Speci men Type: BLOOD SPECIMENOrdering Facility: [facility] Address: [address] [place] [address] Performed By: #### 5 7021-8 ####[facility]OSPITALWNCLIA [id number] [place] [address] [place] Immature granulocytes (Bld) [#/Vol] 0.03 10*3/uL Normal <0.10 [facility] Comment on above: Order Comment: Speci men Type: BLOOD SPECIMENOrdering Facility: [facility] Address: [address] [place] [address] Performed By: #### 5 7021-8 ####[facility]OSPITALLIA [id number] [place] [address] [place] Immature granulocytes/100 WBC (Bld) 0.4 % Normal [facility] Comment on above: Order Comment: Speci men Type: BLOOD SPECIMENOrdering Facility: [facility] Address: [address] [place] [address] Performed By: #### 5 7021-8 ####[facility] [id number] [place] [address] [place] Lymphocytes (Bld) [#/Vol] 1.20 10*3/uL Normal 1.00-4.00 [facility] Comment on above: Order Comment: Speci men Type: BLOOD SPECIMENOrdering Facility: [facility] Address: [address] [place] [address] Performed By: #### 5 7021-8 ####[facility] [id number] [place] [address] [place] Lymphocytes/100 WBC (Bld) 17.7 % Normal [facility] Comment on above: Order Comment: Speci men Type: BLOOD SPECIMENOrdering Facility: [facility] Address: [address] [place] [address] Performed By: #### 5 7021-8 ####[facility] [id number] [place] [address] [place] MCH (RBC) [Entitic mass] 26.4 pg Normal 26.0-34.0 [facility] Comment on above: Order Comment: Speci men Type: BLOOD SPECIMENOrdering Facility: [facility] Address: [address] [place] [address] Performed By: #### 5 7021-8 ####[facility] [id number] [place] [address] [place] MCHC (RBC) [Mass/Vol] 31.0 g/dL Normal 30.5-36.0 [facility] Comment on above: Order Comment: Speci men Type: BLOOD SPECIMENOrdering Facility: [facility] Address: [address] [place] [address] Performed By: #### 5 7021-8 ####[facility]ITALNC[facility] [id number] [place] [address] [place] MCV (RBC) [Entitic vol] 85.0 fL Normal 80.0-100.0 C [facility] Comment on above: Order Comment: Speci men Type: BLOOD SPECIMENOrdering Facility: [facility] Address: [address] [place] [address] Performed By: #### 5 7021-8 ####[facility]ITALNC[facility] [id number] [place] [address] [place] Monocytes (Bld) [#/Vol] 0.57 10*3/uL Normal <0.87 [facility] Comment on above: Order Comment: Speci men Type: BLOOD SPECIMENOrdering Facility: [facility] Address: [address] [place] [address] Performed By: #### 5 7021-8 ####[facility]PITALNCLIA [id number] [place] [address] [place] Monocytes/100 WBC (Bld) 8.4 % Normal C [facility] Comment on above: Order Comment: Speci men Type: BLOOD SPECIMENOrdering Facility: [facility] Address: [address] [place] [address] Performed By: #### 5 7021-8 ####[facility]PITALNCLIA [id number] [place] [address] [place] Neutrophils (Bld) [#/Vol] 4.77 10*3/uL Normal 1.45-7.50 [facility] Comment on above: Order Comment: Speci men Type: BLOOD SPECIMENOrdering Facility: [facility] Address: [address] [place] [address] Performed By: #### 5 7021-8 ####[facility] NABEELWGLENLIA [id number] [address] [place] [facility] Neutrophils/100 WBC (Bld) 70.4 % Normal [facility] Comment on above: Order Comment: Speci men Type: BLOOD SPECIMENOrdering Facility: [facility] Address: [address] [place] [address] Performed By: #### 5 7021-8 ####[facility]OSPITALNCLIA [id number] [place] [address] [place] Nucleated RBC (Bld) [#/Vol] 10*3/uL Normal <0.01 [facility] Comment on above: Order Comment: Speci men Type: BLOOD SPECIMENOrdering Facility: [facility] Address: [address] [place] [address] Performed By: #### 5 7021-8 ####[facility]PITALNCLIA [id number] [place] [address] [place] Nucleated RBC/100 WBC (Bld) [Ratio] 0.0 /100 WBC Normal [facility] Comment on above: Order Comment: Speci men Type: BLOOD SPECIMENOrdering Facility: [facility] Address: [address] [place] [address] Performed By: #### 5 7021-8 ####[facility] HOSPITALLIA [id number] [place] [address] [place] Platelet mean volume (Bld) [Entitic vol] 9.2 fL Normal 9.0-12.7 [facility] Comment on above: Order Comment: Speci men Type: BLOOD SPECIMENOrdering Facility: [facility] Address: [address] [place] [address] Performed By: #### 5 7021-8 ####[facility] HOSPITALLIA [id number] [place] [address] [place] Platelets (Bld) [#/Vol] 394 10*3/uL Normal 150-400 [facility] Comment on above: Order Comment: Speci men Type: BLOOD SPECIMENOrdering Facility: [facility] Address: [address] [place] [address] Performed By: #### 5 7021-8 ####[facility] HOSPITALNCCONSUELO [id number] [place] [address] [place] RBC (Bld) [#/Vol] 4.59 10*6/uL Normal 3.90-5.20 [facility] Comment on above: Order Comment: Speci men Type: BLOOD SPECIMENOrdering Facility: [facility] Address: [address] [place] [address] Performed By: #### 5 7021-8 ####[facility] HOSPITALTERESSA [id number] [place] [address] [place] WBC (Bld) [#/Vol] 6.78 10*3/uL Normal 3.70-11.00 [facility] Comment on above: Order Comment: Speci men Type: BLOOD SPECIMENOrdering Facility: [facility] Address: [address] [place] [address] Performed By: #### 5 7021-8 ####[facility] HOSPITALGLENLIA [id number] [place] [address] [place] Comprehensive metabolic 2000 panelon 02-24-2024 Albumin [Mass/Vol] 3.6 g/dL Low 3.9-4.9 [facility] Comment on above: Order Comment: Speci men Type: BLOOD SPECIMENOrdering Facility: [facility] Address: [address] [place] [address] Performed By: #### 2 4323-8 ####[facility] HOSPITALNCLIRoxy [id number] [place] [id number] [place] ALP [Catalytic activity/Vol] 143 U/L High 34-123 [facility] Comment on above: Order Comment: Speci men Type: BLOOD SPECIMENOrdering Facility: [facility] Address: [address] [place] [address] Performed By: #### 2 4323-8 ####[facility] MILLTOWNCLIA [id number] [place] [address] [place] ALT [Catalytic activity/Vol] 6 U/L Low 7-38 [facility] Comment on above: Order Comment: Speci men Type: BLOOD SPECIMENOrdering Facility: [facility] Address: [address] [place] [address] Performed By: #### 2 4323-8 ####[facility]OSPITALNCLIA [id number] [place] [address] [place] Anion gap [Moles/Vol] 13 mmol/L Normal 8-15 [facility] Comment on above: Order Comment: Speci men Type: BLOOD SPECIMENOrdering Facility: [facility] Address: [address] [place] [address] Performed By: #### 2 4323-8 ####[facility] ALLENST. ALBANS HOSPITALNCLIA [id number] [place] [address] [place] AST [Catalytic activity/Vol] 14 U/L Normal 13-35 [facility] Comment on above: Order Comment: Speci men Type: BLOOD SPECIMENOrdering Facility: [facility] Address: [address] [place] [address] Performed By: #### 2 4323-8 ####[facility] MILLAPPLE VALLEYNCLIA [id number] [place] [address] [place] Bilirubin [Mass/Vol] 0.4 mg/dL Normal 0.2-1.3 [facility] Comment on above: Order Comment: Speci men Type: BLOOD SPECIMENOrdering Facility: [facility] Address: [address] [place] [address] Performed By: #### 2 4323-8 ####[facility] MILLTOWNCLIA [id number] [place] [address] [place] Calcium [Mass/Vol] 9.7 mg/dL Normal 8.5-10.2 [facility] Comment on above: Order Comment: Speci men Type: BLOOD SPECIMENOrdering Facility: [facility] Address: [address] [place] [address] Performed By: #### 2 4323-8 ####[facility] MILLTOWNCLIA [id number] [place] [address] [place] Chloride [Moles/Vol] 101 mmol/L Normal 98-107 [facility] Comment on above: Order Comment: Speci men Type: BLOOD SPECIMENOrdering Facility: [facility] Address: [address] [place] [address] Performed By: #### 2 4323-8 ####[facility] MILLTOWNCLIA [id number] [place] [address] [place] CO2 [Moles/Vol] 21 mmol/L Low 22-30 [facility] Comment on above: Order Comment: Speci men Type: BLOOD SPECIMENOrdering Facility: [facility] Address: [address] [place] [address] Performed By: #### 2 4323-8 ####[facility] MILLTOWNCLIA [id number] [place] [address] [place] Creatinine [Mass/Vol] 1.09 mg/dL High 0.58-0.96 [facility] Comment on above: Order Comment: Speci men Type: BLOOD SPECIMENOrdering Facility: [facility] Address: [address] [place] [address] Performed By: #### 2 4323-8 ####[facility] MILLTOWNCLIA [id number] [place] [address] [place] Creatinine and Glomerular filtration rate.predicted panel (S/P/Bld) 50 mL/min/1.73m??? Low >=60 [facility] Comment on above: Order Comment: Demetrio lorenzo Type: BLOOD SPECIMENOrdering Facility: [facility] Address: [address] [place] [address] Result Comment: Martha mated Glomerular Filtration Rate (eGFR) is calculated using the 2020 CKD-EPI creatinine equation. This equation utilizes serum creatinine, sex, and age as parameters. The creatinine assay has traceable calibration to isotope dilution-mass spectrometry. Refer to KDIGO guidelines for clinical interpretation. In patients with unstable renal function, e.g. those with acute kidney injury, the eGFR may not accurately reflect actual GFR. Performed By: #### 2 4323-8 ####[facility] [id number] [place] [address] [place] Glucose [Mass/Vol] 157 mg/dL High 74-99 [facility] Comment on above: Order Comment: Demetrio lorenzo Type: BLOOD SPECIMENOrdering Facility: [facility] Address: [address] [place] [address] Result Comment: The [place] [employer] (ADA) provides guidance for cutoff values for fasting glucose and random glucose. The ADA defines fasting as no caloric intake for at least 8 hours. Fasting plasma glucose results between 100 to 125 mg/dL indicate increased risk for diabetes (prediabetes). Fasting plasma glucose results greater than or equal to 126 mg/dL meet the criteria for diagnosis of diabetes. In the absence of unequivocal hyperglycemia, results should be confirmed by repeat testing. In a patient with classic symptoms of hyperglycemia or hyperglycemic crisis, random plasma glucose results greater than or equal to 200 mg/dL meet the criteria for diagnosis of diabetes. Reference: Standards of Medical Care in Diabetes 2016, [place] [employer] Association. Diabetes Care. 2016.39(Suppl 1). Performed By: #### 2 4323-8 ####[facility] [id number] [place] [address] [place] Potassium [Moles/Vol] 3.1 mmol/L Low 3.7-5.1 [facility] Comment on above: Order Comment: Speci men Type: BLOOD SPECIMENOrdering Facility: [facility] Address: [address] [place] [address] Performed By: #### 2 4323-8 ####[facility] MILLWNCLIA [id number] [place] [address] [place] Protein [Mass/Vol] 8.7 g/dL High 6.3-8.0 [facility] Comment on above: Order Comment: Speci men Type: BLOOD SPECIMENOrdering Facility: [facility] Address: [address] [place] [address] Performed By: #### 2 4323-8 ####[facility]PITALNCLIA [id number] [place] [address] [place] Sodium [Moles/Vol] 135 mmol/L Low 136-144 [facility] Comment on above: Order Comment: Speci men Type: BLOOD SPECIMENOrdering Facility: [facility] Address: [address] [place] [address] Performed By: #### 2 4323-8 ####[facility]PITALNCLIA [id number] [place] [address] [place] Urea nitrogen [Mass/Vol] 11 mg/dL Normal 7-21 [facility] Comment on above: Order Comment: Speci men Type: BLOOD SPECIMENOrdering Facility: [facility] Address: [address] [place] [address] Performed By: #### 2 4323-8 ####[facility]OSPITALNCLIA [id number] [place] [address] [place] Ferritin SerPl-mCncon 2023 Ferritin [Mass/Vol] 34.1 ng/mL Normal 14.7-205.1 [facility] Comment on above: Order Comment: Speci men Type: BLOOD SPECIMENOrdering Facility: [facility] Address: [address] [place] [address] Performed By: #### 5 0190-8, 2276-4 ####[facility] LABCLIA [id number] [place] [address] [place] Iron and Iron binding capaci ty panelon 02-24-2024 Iron [Mass/Vol] 27 ug/dL Low 41-186 [facility] Comment on above: Order Comment: Speci men Type: BLOOD SPECIMENOrdering Facility: [facility] Address: [address] [place] [address] Performed By: #### 5 0190-8, 2275-4 ####[facility] LABCLIA [id number] [address] [place] Iron binding capacity [Mass/Vol] 321 ug/dL Normal 232-386 [facility] Comment on above: Order Comment: Speci men Type: BLOOD SPECIMENOrdering Facility: [facility] Address: [address] [place] [address] Performed By: #### 5 0190-8, 2275-4 ####[facility] LABCLIA [id number] [address] [place] Iron/TIBC [Molar ratio] 8.4 % Low 15.0-57.0 C [facility] Comment on above: Order Comment: Speci men Type: BLOOD SPECIMENOrdering Facility: [facility] Address: [address] [place] [address] Performed By: #### 5 0190-8, 2275-4 ####[facility] LABCLIA [id number] [place] [address] [place] Cardiology Visit Reporton Cardiology Visit Report [facility] [address] [facility] [place], [place] [address] OFFICE VISIT Date of Service: 02/18/24 MR#: [id number] Acct: [id number] Name: ANTONIO GUPTA Rep #: [id number] : 1940 Provider: LUIS FELIPE Bills Age/Sex: 83/F Location: [facility] Status: Signed [facility] History of Present Illness Details: ANTONIO GUPTA, is a 83 F who presents to the office today for a cardiovascular follow-up. She has a history of coronary artery disease with angioplasty and stenting of the LAD and RCA in September 2010. She also has a history of hypertension, hyperlipidemia, paroxysmal atrial fibrillation and pacemaker placement following an AV isael ablation, and anemia. She does see Dr. Baker for her anemia. She did undergo a stress test in February 2022 demonstrating no evidence of ischemia. She was in the hospital in 12/2023 with acute respiratory failure with anemia. Echocardiogram demonstrated an EF of 55%, RSVP at 50 mghg. She also has a lumbar compression fx. She notes that her breathing is okay. She does not have any swelling because is sitting with her feet up d/t her back. She is still having back pain. Intake Vital Signs 02/17/23 11:11 02/06/24 13:26 02/18/24 11:05 Height 5 ft 6 in 5 ft 8 in 5 ft 8 in Weight: 200 lb BMI 30.4 BP 127/83 H Blood Pressure Location Lt brachial Position Sitting Respiration 18 Pulse 90 Pulse Source Monitor Pulse Oximetry (%) 95 Intake Visit Reasons: 1 Y [employer] Required: No Is patient in pain?: No Allergies poison fany extract (Poison Fany Extract) Allergy (Verified 02/18/24 11:05) Rash Sulfa (Sulfonamide Antibiotics) Allergy (Verified 02/18/24 11:05) Hives Medications ???Medication ???Instructions ???Recorded ???Confirmed ???Type buspirone 15 mg tablet 15 mg PO BID ANXIETY 06/02/13 02/18/24 History omeprazole 40 mg capsule,delayed 40 mg PO DAILY ACID REFLUX 06/02/13 02/18/24 History release nitroglycerin 0.4 mg sublingual 0.4 mg sublingual Q5M PRN CHEST 04/21/15 02/18/24 History tablet PAIN glimepiride 4 mg tablet 4 mg PO DAILY DIABETES 01/24/22 02/18/24 History acetaminophen 500 mg capsule 1,000 mg PO Q4H PRN PAIN 02/17/23 02/18/24 History amitriptyline 50 mg tablet 50 mg PO QHS DEPRESSION 02/17/23 02/18/24 History empagliflozin 10 mg tablet 10 mg PO DAILY DIABETES 02/17/23 02/18/24 History (Jardiance) ketotifen fumarate 0.025 % (0.035 1 drp ophthalmic (eye) BID 02/17/23 02/18/24 History %) eye drops ([place]) ITCHING/ALLERGIES amlodipine 10 mg tablet 10 mg PO DAILY BLOOD PRESSURE 12/14/23 02/18/24 History levothyroxine 100 mcg tablet 100 mcg PO DAILY THYROID 12/14/23 02/18/24 History (Synthroid) rivaroxaban 20 mg tablet (Xarelto) 20 mg PO DAILY BLOOD THINNER 12/14/23 02/18/24 History simvastatin 20 mg tablet 20 mg PO QHS CHOLESTEROL 12/14/23 02/18/24 History tizanidine 4 mg tablet 4 mg PO Q8H PRN MUSCLE SPASMS 12/14/23 02/18/24 History potassium chloride 20 mEq 20 meq PO DAILY #30 tabs 12/16/23 02/18/24 Rx tablet,extended release(part/cryst) furosemide 40 mg tablet (Lasix) 40 mg PO DAILY #60 tabs 12/17/23 02/18/24 Rx metoprolol succinate 50 mg 50 mg PO DAILY #60 tabs 12/17/23 02/18/24 Rx tablet,extended release 24 hr oxycodone-acetaminoph en 5 mg-325 1 tab PO Q6H PRN pain 3 days #12 02/06/24 02/18/24 Rx mg tablet (Percocet) tabs Have you fallen in the past year?: No PFSH Medical History Iron deficiency anemia History of non-ST elevation myocardial infarction (NSTEMI) (2013) Longstanding persistent atrial fibrillation Essential (primary) hypertension Anxiety Hypothyroidism Hyperlipidemia Secondary pulmonary arterial hypertension Atherosclerosis of coronary artery of [place] heart without angina pectoris Paroxysmal atrial fibrillation Paroxysmal atrial flutter Sick sinus syndrome Surgical History History of tubal ligation History of appendectomy History of hysterectomy History of left heart catheterization (10/09/13) History of coronary artery stent placement (09/2010) Hx of atrioventricular node ablation (03/31/16) Presence of cardiac pacemaker (04/26/15) Family History Mother Cancer Father Cancer Brother CAD (coronary artery disease) Sister CAD (coronary artery disease) Social History Smoking Status: Former smoker how long ago did patient quit smokin's alcohol intake: never substance use type: does not use caffeine: Yes Type: coffee Number of servings: 3 ROS Const Const: Negative for fatigue, weakness, headache(s), frequent fal (more content not included)... Normal [facility] 02-16-2024 [facility] Office Visit (UCTR ) ANTONIO GUPTA ([id number]) 1940 F Date Time Provider Department 02/16/24 12:15 PM SEAN RIDLEY [facility] During your visit today, we recorded the following information about you: Temperature Pulse Respiration Blood pressure 96.9 degrees 88/minute 16/minute 132/82 Weight 90.4 kg Sean Ridley PA 02/16/2024 12:31 PM Signed This note was created using NoteWriter. Subjective Antonio Gupta is a 83 year old female. HPI 83 year old female presents for burn of the lower back. Patient states she has been having low back issues for quite some time. She follows with her doctor for this. She states that over the past few weeks she has had increased low back pain and has been using a rice bag that you warm up in the microwave for her pain. She states this does help. She reports that she microwaved the rice bag too hot and burned her skin. She states that her and daughter noticed it. It was originally blistered. The blisters have now popped and is more scabbed over. She does have an area of redness still, so they wanted her to come in for evaluation. Patient states she has not been able to see the area, so is unsure what it looks like or how it has changed. She states it is occasionally painful if the scabs get caught on her shirt. She has been putting some [id number] ointment on it and bandages. Has not tried anything else for symptoms. No fevers. No other complaint. PAST MEDICAL HISTORY No date: Coronary atherosclerosis of unspecified type of vessel, [place] or graft Comment: Stent x 2010 No date: Depressive disorder, not elsewhere classified No date: Diverticulosis of colon (without mention of hemorrhage) No date: Essential hypertension, benign No date: Heart attack (HCC) No date: Other and unspecified hyperlipidemia No date: Palpitations No date: Paroxysmal atrial fibrillation (HCC) PAST SURGICAL HISTORY No date: APPENDECTOMY 1998: COLONOSCOPY FLX DX W/COLLJ SPEC WHEN PFRMD Comment: Colonoscopy repeat 10 years 05/18/12: COLONOSCOPY FLX DX W/COLLJ SPEC WHEN PFRMD Comment: Colonoscopy 09/15/2016: COLSC FLX W/REMOVAL LESION BY HOT BX FORCEPS 09/15/2016: EGD REMOVAL TUMOR POLYP/OTHER LESION SNARE TECH 09/2010: HEART SURGERY HX Comment: stents inserted 2011: LEFT HEART CATH,PERCUTANEOUS Comment: Cardiac cath, L heart 04/2015: PACEMAKER IMPLANT 2011: PERC TRANSL COR ANGIO Comment: Percutaneous Transluminal Coronary Angio Status 03/31/2016: SVT ABLATION W/ EP COMPLETE Comment: Dr. Buitrago 1985: TOTAL ABDOMINAL HYSTERECT W/WO RMVL TUBE OVARY Comment: Hysterectomy, ROSALIO No date: W TRY ATRIOGRM HP ALLERGIES Poison Fany and Sulfa (Sulfonamide Antibiotics) MEDICATIONS glimepiride (AMARYL) 4 mg tablet Take 0.5 tablets by mouth daily with breakfast. metoprolol succinate ER (TOPROL XL) 50 mg 24 hr tablet Take 50 mg by mouth once daily. furosemide (LASIX) 40 mg tablet Take 40 mg by mouth once daily. nitroglycerin sublingual (NITROSTAT) 0.4 mg SL tablet Dissolve 1 tablet under the tongue every 5 minutes as needed for chest pain. tiZANidine (ZANAFLEX) 4 mg tablet Take 1 tablet by mouth every 8 hours as needed (muscle spasms). levothyroxine (SYNTHROID) 100 mcg tablet Take 1 tablet by mouth once daily. empagliflozin (JARDIANCE) 10 mg tablet Take 1 tablet by mouth once daily. Take 1 tablet once daily in the morning amitriptyline (ELAVIL) 50 mg tablet Take 1 tablet by mouth daily at bedtime. busPIRone (BUSPAR) 15 mg tablet Take 1 tablet by mouth three times a day. omeprazole (PRILOSEC) 40 mg capsule Take 1 capsule by mouth once daily. ketotifen fumarate (ALAWAY) 0.025 % (0.035 %) ophthalmic solution Use 1 Drop in both eyes twice daily. blood sugar diagnostic (Shippo VERIO TEST STRIPS) test strip TEST BLOOD SUGAR ONCE DAILY lancets (ONE TOUCH DELICA) 33 gauge Test blood sugar(s) 1 daily. Dx: Other DM Code E 11.29 Insulin: No amLODIPine (NORVASC) 10 mg tablet Take 1 tablet by mouth once daily. rivaroxaban (XARELTO) 20 mg tablet Take 20 mg by mouth daily with dinner. simvastatin (ZOCOR) 20 mg tablet Take 20 mg by mouth daily at bedtime. acetaminophen (TYLENOL EXTRA STRENGTH) 500 mg ORAL tablet Take 2 tablets by mouth every 4 hours as needed. cephALEXin (KEFLEX) 500 mg capsule Take 1 capsule by mouth four times daily for 7 days. mupirocin (BACTROBAN) 2 % ointment Apply to affected area three times a day for 7 days. FAMILY HISTORY Problem Relation Age of Onset Cancer Mother liver other (old age) Father Cancer Sister thyroid Social History Tobacco Use Smoking status: Former Years: 20 Types: Cigarettes Quit date: 07/13/1981 Years since quittin.6 Smokeless tobacco: Never Tobacco comments: Pt smoked one pack every 3 days. Vaping Use Vaping Use: Never used Substance Use Topics Alcohol use: No Drug use: (more content not included)... Normal [facility] Emergency Department Summary on 02-06-2024 Emergency Department Summary [facility] Medical Records Department [address] [place] [address] Emergency Department Summary 02/06/24 MR#: [id number] Acct: [id number] Name: ANTONIO GUPTA Rep #: [id number] : 1940 83 From: Howard Sousa DO PCP: Dr. Victor M Rocha MD Status:REG ER Location: ED HPI History of Present Illness Chief Complaint: Back Narrative Narrative: 83-year-old female presenting with back pain. She states it starts in the middle and goes all the way around to her flanks. Patient has a history of compression fracture in the past. No loss of bladder or bowel control. No saddle anesthesia. Patient denies any direct trauma. She has tried Tylenol and ibuprofen without help. She had a old prescription for Percocet which she took one of them did help her pain although she still has pain when she moves. [facility] Medical History Iron deficiency anemia History of non-ST elevation myocardial infarction (NSTEMI) (2013) Longstanding persistent atrial fibrillation Essential (primary) hypertension Anxiety Hypothyroidism Hyperlipidemia Secondary pulmonary arterial hypertension Atherosclerosis of coronary artery of [place] heart without angina pectoris Paroxysmal atrial fibrillation Paroxysmal atrial flutter Sick sinus syndrome Home Medications ???Medication ???Instructions ???Recorded ???Last Taken ???Type buspirone 15 mg tablet 15 mg PO BID ANXIETY 06/02/13 Unknown History omeprazole 40 mg capsule,delayed 40 mg PO DAILY ACID REFLUX 06/02/13 09/15/16 08:30 History release nitroglycerin 0.4 mg sublingual 0.4 mg sublingual Q5M PRN CHEST 04/21/15 Unknown History tablet PAIN glimepiride 4 mg tablet 4 mg PO DAILY DIABETES 01/24/22 Unknown History acetaminophen 500 mg capsule 1,000 mg PO Q4H PRN PAIN 02/17/23 Unknown History amitriptyline 50 mg tablet 50 mg PO QHS DEPRESSION 02/17/23 Unknown History empagliflozin 10 mg tablet 10 mg PO DAILY DIABETES 02/17/23 Unknown History (Jardiance) ketotifen fumarate 0.025 % (0.035 1 drp ophthalmic (eye) BID 02/17/23 Unknown History %) eye drops (Alaway) ITCHING/ALLERGIES amlodipine 10 mg tablet 10 mg PO DAILY BLOOD PRESSURE 12/14/23 Unknown History levothyroxine 100 mcg tablet 100 mcg PO DAILY THYROID 12/14/23 Unknown History (Synthroid) rivaroxaban 20 mg tablet (Xarelto) 20 mg PO DAILY BLOOD THINNER 12/14/23 Unknown History simvastatin 20 mg tablet 20 mg PO QHS CHOLESTEROL 12/14/23 Unknown History tizanidine 4 mg tablet 4 mg PO Q8H PRN MUSCLE SPASMS 12/14/23 Unknown History potassium chloride 20 mEq 20 meq PO DAILY #30 tabs 12/16/23 Unknown Rx tablet,extended release(part/cryst) furosemide 40 mg tablet (Lasix) 40 mg PO DAILY #60 tabs 12/17/23 Unknown Rx metoprolol succinate 50 mg 50 mg PO DAILY #60 tabs 12/17/23 Unknown Rx tablet,extended release 24 hr oxycodone-acetaminoph en 5 mg-325 1 tab PO Q6H PRN pain 3 days #12 02/06/24 Unknown Rx mg tablet (Percocet) tabs Allergy/AdvReac Type Severity Reaction Status Date / Time poison fany extract (Poison Allergy Rash Verified 02/06/24 13:26 Fany Extract) Sulfa (Sulfonamide Allergy Hives Verified 02/06/24 13:26 Antibiotics) Family History Mother Cancer Father Cancer Brother CAD (coronary artery disease) Sister CAD (coronary artery disease) Surgical History History of tubal ligation History of appendectomy History of hysterectomy History of left heart catheterization (10/09/13) History of coronary artery stent placement (09/2010) Hx of atrioventricular node ablation (03/31/16) Presence of cardiac pacemaker (04/26/15) Social History Smoking Status: Former smoker how long ago did patient quit smokin's alcohol intake: never substance use type: does not use caffeine: Yes Type: coffee Number of servings: 3 ROS ROS ED Constitutional Constitutional ED: Denies chills, fever(s) or sweats Eyes Eyes: Denies blurry vision or change in vision ENT ENT ED: Denies ear pain or sore throat Cardiovascular Cardiovascular: Denies chest pain, palpitations or racing heartbeat Respiratory/Chest Respiratory/Chest: Denies cough, dyspnea or sputum Gastrointestinal Gastrointestinal: Denies abdominal pain, constipation, diarrhea, nausea or vomiting Genitourinary Genitourinary ED: Denies dysuria, hematuria or urinary frequency Musculoskeletal Musculoskeletal: Reports back pain; Denies arthralgias, myalgias or neck pain Integumentary Denies abscess, Abrasions or rash Neurologic Neurologic: Denies headache(s), paresthesias or weakness Psychiatric Psychiatric: Denies anxiety, depression, suicidal id (more content not included)... Normal [facility] Spine Lumbar without Contras ton 02-06-2024 Spine Lumbar without Contrast [facility] Imaging Services [address] [place], [place] [id number] Spine Lumbar without Contrast MR#: [id number] Acct: [id number] Name: ANTONIO GUPTA Rep #: [id number] : 1940 F 83 From: Flako Camilo MD PCP: Dr. Victor M Rocha MD Status: REG ER Study: Spine Lumbar without Contrast Date of Exam: Exam# [id number] Ordering Dr: Howard Sousa DO [id number] EXAM: CT THORACIC AND LUMBAR SPINE WITHOUT INTRAVENOUS CONTRAST CLINICAL INDICATION: back pain TECHNIQUE: Helically acquired images were obtained of the thoracic and lumbar spine without intravenous contrast. 2D reformats were reviewed. This CT exam was performed using one or more of the following dose reduction techniques: automated exposure control, adjustment of the mA and/or kV according to patient size, and/or use of iterative reconstruction technique. Coronal and sagittal reformatted images were created and reviewed. RADIATION DOSE: CTDIvol = 20.77 mGy, DLP = 675.96 mGy-cm COMPARISON: 08/15/2022 FINDINGS: VERTEBRAE: Severe compression fracture with near plana deformity involving T12 vertebral body remains stable with similar retropulsion. There is new moderate compression fracture of T8 involving the superior more the inferior endplates with mild degree of retropulsion. Relative sclerosis of T8 vertebral body may represent compressive changes of the trabecula, although an underlying sclerotic lesion is not excluded. Grade 1 spondylolisthesis L4-L5 due to facet arthropathy. DISCS/SPINAL CANAL/NEURAL FORAMINA: There is acquired canal stenosis at predominately L4-L5 due to disc bulging, facet arthropathy and ligamentum flavum hypertrophy poorly characterized on noncontrasted CT. Broad posterior disc bulging at L2-L3, L3-L4 and L4-L5. VASCULATURE: Atherosclerosis of the thoracic aorta and abdominal aorta. Slight atherosclerosis of the left lower lobe. LYMPH NODES: Unremarkable. No retroperitoneal adenopathy. LUNGS AND PLEURAL SPACES: Unremarkable as visualized. No mass. No consolidation or edema. No pleural effusion or thickening. No pneumothorax. CT/Spine Lumbar without Contrast IMPRESSION: 1. T8 compression fracture, new since 2022. 2. Chronic changes, as above, including degenerative disc disease with acquired canal stenosis predominantly at L4-L5. Electronically Signed: Flako Camilo MD (Brooks) at 14:57 EDT Reading Location ID and State: [address] [place] [address] , Service support , CC: Dr. Howard Sousa DO; Dr. Victor M Rocha MD Derrick Follower: Signed Normal [facility] Spine Thoracic without Contr ason 02-06-2024 Spine Thoracic without Contras [facility] Imaging Services [address] [place] [address] Spine Thoracic without Contras MR#: [id number] Acct: [id number] Name: ANTONIO GUPTA Rep #: [id number] : 1940 F 83 From: Flako Camilo MD PCP: Dr. Victor M Rocha MD Status: REG ER Study: Spine Thoracic without Contras Date of Exam: 0 02/06/24 Exam# [id number] Ordering Dr: Howard Sousa DO [id number] EXAM: CT THORACIC AND LUMBAR SPINE WITHOUT INTRAVENOUS CONTRAST CLINICAL INDICATION: back pain TECHNIQUE: Helically acquired images were obtained of the thoracic and lumbar spine without intravenous contrast. 2D reformats were reviewed. This CT exam was performed using one or more of the following dose reduction techniques: automated exposure control, adjustment of the mA and/or kV according to patient size, and/or use of iterative reconstruction technique. Coronal and sagittal reformatted images were created and reviewed. RADIATION DOSE: CTDIvol = 20.77 mGy, DLP = 675.96 mGy-cm COMPARISON: 08/15/2022 FINDINGS: VERTEBRAE: Severe compression fracture with near plana deformity involving T12 vertebral body remains stable with similar retropulsion. There is new moderate compression fracture of T8 involving the superior more the inferior endplates with mild degree of retropulsion. Relative sclerosis of T8 vertebral body may represent compressive changes of the trabecula, although an underlying sclerotic lesion is not excluded. Grade 1 spondylolisthesis L4-L5 due to facet arthropathy. DISCS/SPINAL CANAL/NEURAL FORAMINA: There is acquired canal stenosis at predominately L4-L5 due to disc bulging, facet arthropathy and ligamentum flavum hypertrophy poorly characterized on noncontrasted CT. Broad posterior disc bulging at L2-L3, L3-L4 and L4-L5. VASCULATURE: Atherosclerosis of the thoracic aorta and abdominal aorta. Slight atherosclerosis of the left lower lobe. LYMPH NODES: Unremarkable. No retroperitoneal adenopathy. LUNGS AND PLEURAL SPACES: Unremarkable as visualized. No mass. No consolidation or edema. No pleural effusion or thickening. No pneumothorax. CT/Spine Thoracic without Contras IMPRESSION: 1. T8 compression fracture, new since 2022. 2. Chronic changes, as above, including degenerative disc disease with acquired canal stenosis predominantly at L4-L5. Electronically Signed: Flako Camilo MD (Brooks) at 14:56 EDT Reading Location ID and State: [facility] / [place] , Service support , CC: Dr. Howard Sousa DO; Dr. Victor M Rocha MD Derrick Follower: Signed Normal [facility] UA DIP, URINE (POC)on 2023 BILIRUBIN UA (POCT) Negative Negative [facility] CLARITY UA (POCT) Cloudy [facility] COLOR UA (POCT) Dark yellow [facility] GLUCOSE UA (POCT) 500 mg/dL Abnormal Negative [facility] Hemoglobin Ql (U) Moderate Abnormal Negative [facility] Interpretation and review of laboratory results Abnormal [facility] KETONE UA (POCT) Negative Negative mg/dL [facility] LEUKOCYTES UA (POCT) Large Abnormal Negative [facility] NITRITE UA (POCT) Negative Negative [facility] PH UA (POCT) 6.5 4.5 - 8.0 [facility] Protein Ql (U) 30 mg/dL Abnormal Negative [facility] SPECIFIC GRAVITY UA (POCT) 1.015 1.005 - 1.030 [facility] UROBILINOGEN UA (POCT) 0.2 Olga l E.U./dL [facility] Location:[address], [place], [place], [id number] [place] [address] POINT OF CARE [facility] FERRITINon 11-18-2023 Ferritin [Mass/Vol] 18.9 ng/mL 14.7 - 2 05.1 ng/mL [facility] Ferritin [Mass/Vol]on 2023 Interpretation and review of laboratory results Normal [facility] Iron and Iron binding capaci ty panelon 11-18-2023 Interpretation and review of laboratory results Abnormal [facility] Iron [Mass/Vol] 19 ug/dL Low 41 - 186 ug/dL [facility] Iron binding capacity [Mass/Vol] 401 ug/dL High 232 - 386 ug/dL [facility] Iron/TIBC [Molar ratio] 4.7 % Low 15.0 - 57.0 % [facility] CBC W Auto Differential pane l (Bld)on 11-17-2023 Basophils (Bld) [#/Vol] 0.04 10*3/uL [facility] Basophils/100 WBC (Bld) 0.5 % [facility] Differential cell count method Nom (Bld) Auto [facility] Eosinophils (Bld) [#/Vol] 0.15 10*3/uL [facility] Eosinophils/100 WBC (Bld) 1.9 % [facility] Erythrocyte distribution width (RBC) [Ratio] 14.8 % 11.5 - 15.0 % [facility] Hematocrit (Bld) [Volume fraction] 32.0 % Low 36.0 - 46.0 % [facility] Hemoglobin (Bld) [Mass/Vol] 9.5 g/dL Low 11.5 - 15.5 g/dL [facility] Immature granulocytes (Bld) [#/Vol] 0.03 10*3/uL [facility] Immature granulocytes/100 WBC (Bld) 0.4 % [facility] Interpretation and review of laboratory results Abnormal [facility] Lymphocytes (Bld) [#/Vol] 1.49 10*3/uL [facility] Lymphocytes/100 WBC (Bld) 18.8 % [facility] MCH (RBC) [Entitic mass] 24.9 pg Low 26.0 - 34.0 pg [facility] MCHC (RBC) [Mass/Vol] 29.7 g/dL Low 30.5 - 36.0 g/dL [facility] MCV (RBC) [Entitic vol] 84.0 fL 80.0 - 100.0 fL [facility] Monocytes (Bld) [#/Vol] 0.80 10*3/uL [facility] Monocytes/100 WBC (Bld) 10.1 % [facility] Neutrophils (Bld) [#/Vol] 5.40 10*3/uL [facility] Neutrophils/100 WBC (Bld) 68.3 % [facility] Nucleated RBC (Bld) [#/Vol] [facility] Nucleated RBC/100 WBC (Bld) [Ratio] 0.0 % /100 WBC [facility] Platelet mean volume (Bld) [Entitic vol] 9.2 fL 9.0 - 12.7 fL [facility] Platelets (Bld) [#/Vol] 367 10*3/uL [facility] RBC (Bld) [#/Vol] 3.81 10*6/uL Low 3.90 - 5.2 0 m/uL [facility] WBC (Bld) [#/Vol] 7.91 10*3/uL [facility] Basic metabolic 2000 panelon 06-22-2023 Anion gap [Moles/Vol] 12 mmol/L 9 - 18 mmol/L [facility] Calcium [Mass/Vol] 10.0 mg/dL 8.5 - 10. 2 mg/dL [facility] Chloride [Moles/Vol] 97 mmol/L 97 - 10 5 mmol/L [facility] CO2 [Moles/Vol] 24 mmol/L 22 - 30 mmol/L [facility] Creatinine [Mass/Vol] 1.49 mg/dL High 0.58 - 0.96 mg/dL [facility] Estimated Glomerular Filtration Rate 34 mL/min/1.73m Low >=60 mL/min/1.73m [facility] Glucose [Mass/Vol] 125 mg/dL High 74 - 99 mg/dL [facility] Potassium [Moles/Vol] 4.2 mmol/L 3.7 - 5.1 mmol/L [facility] Sodium [Moles/Vol] 133 mmol/L Low 136 - 144 mmol/L [facility] Urea nitrogen [Mass/Vol] 23 mg/dL High 7 - 21 mg/dL [facility] Basophil percentageOrdered B y: Lizet Bradshaw on 06-15-2023 Basophil percentage >100 SEEN /hpf 0-5 [facility] Comment on above: Microscopic field is filled. Other elements may be obscured. Bilirubin Test strip Ql (U)O rdered By: Lizet Bradshaw on 06-15-2023 Bilirubin Ql (U) Negative Negative [facility] Ketones Test strip Ql (U)Ord ered By: Lizet Bradshaw on 06-15-2023 Ketones Ql (U) Negative Negative [facility] Mucus LM Ql (Urine sed)Order ed By: Lizet Bradshaw on 06-15-2023 Mucus Ql (Urine sed) 0 SEEN /hpf [facility] Nitrite Test strip Ql (U)Ord ered By: Lizet Bradshaw on 06-15-2023 Nitrite Ql (U) Negative Negative [facility] Protein Test strip Ql (U)Ord ered By: Lizet Bradshaw on 06-15-2023 Protein Ql (U) 30 mg/dl Negative [facility] Squamous epithelial cells de tection in urine sediment by light microscopyOrdered By: Lizet Bradshaw on 06-15-2023 Epithelial cells.squamous LM Ql (Urine sed) 0 SEEN /hpf 5-[address] [facility] Urine blood detectionOrdered By: Lizet Bradshaw on 06-15-2023 RBC Ql (U) 50 /ul Negative [facility] RBC Ql (U) 0 SEEN /hpf 0-[address] [facility] Urine clarityOrdered By: Jcarlos Bradshaw on 06-15-2023 Clarity (U) Cloudy Clear [facility] Urine color determinationOrd ered By: Lizet Bradshaw on 06-15-2023 Color (U) Yellow Yellow [facility] Urine glucose detectionOrder ed By: Lizet Bradshaw on 06-15-2023 Glucose Ql (U) 1000 mg/dl Normal [facility] Urine leukocyte esterase det ection by dipstickOrdered By: Lizet Bradshaw on 06-15-2023 Leukocyte esterase Test strip Ql (U) 500 /ul Negative [facility] Urine pHOrdered By: Shiraz Bradshaw on 06-15-2023 pH (U) 6.5 [pH] 5.0 - 8.[address] [facility] Urine sediment bacteria coun t by microscopy (number/high power field)Ordered By: Lizet Bradshaw on 06-15-2023 Bacteria LM.HPF (Urine sed) [#/Area] 4 /[HPF] None Seen [facility] Comment on above: Microscopic field is filled. Other elements may be obscured. Urine specific gravity measu rementOrdered By: Lizet Bradshaw on 06-15-2023 Specific gravity (U) [Rel density] 1.010 1.002-1.[address] [facility] Urobilinogen Auto test strip Ql (U)Ordered By: Lizet Bradshaw on 06-15-2023 Urobilinogen Ql (U) Normal mg/dl Normal [facility] UA DIP, URINE (POC)on 2022 BILIRUBIN UA (POCT) Negative Negative [facility] CLARITY UA (POCT) Clear [facility] COLOR UA (POCT) Yellow [facility] GLUCOSE UA (POCT) >=1000 Abnormal Negative mg/dL [facility] Hemoglobin Ql (U) Large Abnormal Negative [facility] KETONE UA (POCT) Negative Negative mg/dL [facility] LEUKOCYTES UA (POCT) Small Abnormal Negative [facility] NITRITE UA (POCT) Positive Abnormal Negative [facility] PH UA (POCT) 6.0 4.5 - 8.0 [facility] Protein Ql (U) 100 mg/dL Abnormal Negative mg/dL [facility] SPECIFIC GRAVITY UA (POCT) 1.010 1.005 - 1.030 [facility] UROBILINOGEN UA (POCT) 0.2 E.U./dL Olga l E.U./dL [facility] Absolute lymphocyte countOrd ered By: Vinny Root on 02-17-2023 Lymphocytes Auto (Unsp spec) [#/Vol] 1.75 10*3/uL 0.83-4.[address] [facility] Basophil percentageOrdered B y: Denton Ivett on 02-17-2023 Basophils/100 WBC (Bld) 0.5 % 0-1 [facility] Chloride [Moles/Vol] 102 mmol/L 98-107 [facility] Eosinophils/100 WBC (Bld) 2.5 % 0-[address] [facility] Glucose [Mass/Vol] 127 mg/dL 74-106 [facility] Comment on above: Fasting Glucose resu lt greater than or equal to 126 mg/dL suggests DIABETES MELLITUS per A.D.A. criteria. Neutrophils (Bld) [#/Vol] 4.6 10*3/uL 2.0-7.[address] [facility] [facility] Neutrophils/100 WBC (Bld) 62.5 % 47-[address] [facility] Potassium [Moles/Vol] 3.9 mmol/L 3.5-5.1 [facility] Sodium [Moles/Vol] 135 mmol/L 136-145 [facility] WBC (Bld) [#/Vol] 7.3 10*3/uL 4.4-11.0 [facility] Blood erythrocytes count (nu mber/volume)Ordered By: Vinny Root on 02-17-2023 RBC (Bld) [#/Vol] 4.28 10*6/uL 4.2-5.4 [facility] Blood hemoglobin measurement (mass/volume)Ordered By: Denton Ivett on 02-17-2023 Hemoglobin (Bld) [Mass/Vol] 12.7 g/dL 12.0-15.[address] [facility] Blood lymphocytes/100 leukoc ytesOrdered By: Denton Ivett on 02-17-2023 Lymphocytes/100 WBC (Bld) 23.8 % 19-[address] [facility] Blood monocytes/100 leukocyt esOrdered By: Denton Ivett on 02-17-2023 Monocytes/100 WBC (Bld) 10.4 % 0-10 [facility] Blood platelet mean volumeOr dered By: Denton Ivett on 02-17-2023 Platelet mean volume (Bld) [Entitic vol] 10.3 fL 6.2-12.[address] [facility] Determination of erythrocyte mean corpuscular volume (MCV)Ordered By: Vinny Root on 02-17-2023 MCV (RBC) [Entitic vol] 95.6 fL 81-99 [facility] Hematocrit Auto (Bld) [Volum e fraction]Ordered By: Vinny Root on 02-17-2023 Hematocrit (Bld) [Volume fraction] 40.9 % 37-[address] [facility] Laboratory - Chemistry and C hemistry - challengeOrdered By: Denton Ivett on 02-17-2023 CO2 [Moles/Vol] 29.0 mmol/L 21.0-32.[address] [facility] Urea nitrogen/Creatinine [Mass ratio] 13.1 mg/mg 10-[address] [facility] Laboratory - Hematology and Cell countsOrdered By: Vinny Ivett on 02-17-2023 Erythrocyte distribution width (RBC) [Entitic vol] 47.8 fL 35.1-43.[address] [facility] Erythrocyte distribution width (RBC) [Ratio] 13.6 % 11.6-14.[address] [facility] Immature granulocytes/100 WBC (Bld) 0.300 % 0.0-0.[address] [facility] Comment on above: IG% - Immature Granu locytes (promyelocytes, myelocytes and metamyelocytes) > 1% indicates that a LEFT SHIFT is Present. MCH (RBC) [Entitic mass] 29.7 pg 27.0-32.[address] [facility] Nucleated RBC/100 WBC (Bld) [Ratio] 0 % 0-[address] [facility] MCHC Auto (RBC) [Mass/Vol]Or dered By: Vinny Root on 02-17-2023 MCHC (RBC) [Mass/Vol] 31.1 g/dL 32-36 [facility] No Panel InformationOrdered By: Vinny Root on 02-17-2023 Estimated GFR (MDRD) Amer 47 mL/min >[address] [facility] Comment on above: GFR Calc Estimated GFR (MDRD) Non-Af Amer 39 mL/min >[address] [facility] Comment on above: Non- GFR Calc Thyroid Stimulating Hormone (TSH) 2.83 uIU/mL 0.358-3.[address] [facility] Platelets bldOrdered By: Burke Centretessie Root on 02-17-2023 Platelets (Bld) [#/Vol] 298 10*3/uL 150-[address] [facility] Serum or plasma calcium fernando urement (mass/volume)Ordered By: Vinny Root on 02-17-2023 Calcium [Mass/Vol] 9.7 mg/dL 8.5-10.1 [facility] Serum or plasma creatinine m easurement (mass/volume)Ordered By: Vinny Root on 02-17-2023 Creatinine [Mass/Vol] 1.37 mg/dL 0.55-1.02 [facility] Comment on above: The validity of the calculated GFR & GFRAA in patients over 70 years has not been determined. Clinical correlation is essential. Serum or plasma urea nitroge n measurement (mass/volume)Ordered By: Vinny Root on 02-17-2023 Urea nitrogen [Mass/Vol] 18 mg/dL 7-[address] [facility] Thin prep Papanicolaou smear with manual screeningOrdered By: Vinny Root on 02-17-2023 Thin prep Papanicolaou smear with manual screening 4 5-[address] [facility] Absolute lymphocyte countOrd ered By: Joshua Viraomntes on 12-04-2022 Lymphocytes Auto (Unsp spec) [#/Vol] 1.13 10*3/uL 0.83-4.[address] [facility] Basophil percentageOrdered B y: Joshua Viramontes on 12-04-2022 Basophil percentage >100 SEEN /hpf 0-5 [facility] Basophils/100 WBC (Bld) 0.4 % 0-1 [facility] Bilirubin [Mass/Vol] 0.60 mg/dL 0.20-1.00 [facility] Comment on above: For patients on eltr ombopag therapy, use of [employer]ension [place] TBIL is not recommended. Chloride [Moles/Vol] 101 mmol/L 98-107 [facility] Eosinophils/100 WBC (Bld) 0.8 % 0-[address] [facility] Glucose [Mass/Vol] 163 mg/dL 74-106 [facility] Comment on above: Fasting Glucose resu lt greater than or equal to 126 mg/dL suggests DIABETES MELLITUS per A.D.A. criteria. Neutrophils (Bld) [#/Vol] 15.3 10*3/uL 2.0-7.[address] [facility] Neutrophils/100 WBC (Bld) 89.3 % 47-[address] [facility] Potassium [Moles/Vol] 3.0 mmol/L 3.5-5.1 [facility] Protein [Mass/Vol] 9.1 g/dL 6.4-8.2 [facility] Sodium [Moles/Vol] 134 mmol/L 136-145 [facility] WBC (Bld) [#/Vol] 17.1 10*3/uL 4.4-11.0 [facility] Bilirubin Test strip Ql (U)O rdered By: Joshua Viramontes on 12-04-2022 Bilirubin Ql (U) Negative Negative [facility] Blood erythrocytes count (nu mber/volume)Ordered By: Joshua Viramontes on 12-04-2022 RBC (Bld) [#/Vol] 4.13 10*6/uL 4.2-5.4 [facility] Blood hemoglobin measurement (mass/volume)Ordered By: Joshua Viramontes on 12-04-2022 Hemoglobin (Bld) [Mass/Vol] 13.2 g/dL 12.0-15.[address] [facility] Blood lymphocytes/100 leukoc ytesOrdered By: Joshua Viramontes on 12-04-2022 Lymphocytes/100 WBC (Bld) 6.6 % 19-[address] [facility] Blood monocytes/100 leukocyt esOrdered By: Joshua Viramontes on 12-04-2022 Monocytes/100 WBC (Bld) 2.3 % 0-10 [facility] Blood platelet mean volumeOr dered By: Joshua Viramontes on 12-04-2022 Platelet mean volume (Bld) [Entitic vol] 10.4 fL 6.2-12.[address] [facility] Culture, urineOrdered By: Luis Felipe Viramontes on 12-04-2022 Bacteria identified Cx Nom (U) Streptococcus gallolyticus pas [facility] Determination of erythrocyte mean corpuscular volume (MCV)Ordered By: Joshua Viramontes on 12-04-2022 MCV (RBC) [Entitic vol] 97.3 fL 81-99 [facility] Hematocrit Auto (Bld) [Volum e fraction]Ordered By: Joshua Viramontes on 12-04-2022 Hematocrit (Bld) [Volume fraction] 40.2 % 37-[address] [facility] INR in Blood by Coagulation assayOrdered By: Joshua Viramontes on 12-04-2022 INR Coag (Bld) [Relative time] 2.2 {INR} [facility] Influenza virus A and B and SARS-CoV-2 (COVID-19) Ag panel - Upper respiratory specimOrdered By: Joshua Viramontes on 12-04-2022 SARS-CoV-2 (COVID-19) RNA CASSIE+probe Ql (Resp) [facility] Ketones Test strip Ql (U)Ord ered By: Joshua Viramontes on 12-04-2022 Ketones Ql (U) Negative Negative [facility] Laboratory - Chemistry and C hemistry - challengeOrdered By: Joshua Viramontes on 12-04-2022 ALP [Catalytic activity/Vol] 123 U/L 45-[address] [facility] ALT [Catalytic activity/Vol] 18 U/L 13-[address] [facility] CO2 [Moles/Vol] 25.0 mmol/L 21.0-32.[address] [facility] Globulin (S) [Mass/Vol] 5.3 g/dL 2.2-4.2 [facility] Lipase [Catalytic activity/Vol] 54 U/L 13-[address] [facility] Comment on above: Please note:LIPASE r evised reference range effective 22. New Lipase methodology. Expected to produce lower values than the previous assay method. NEW Reference Range: 13 - 75 U/L Natriuretic peptide B (Bld) [Mass/Vol] 236.7 pg/mL 0-[address] [facility] Urea nitrogen/Creatinine [Mass ratio] 15.5 mg/mg 10-[address] [facility] Laboratory - CoagulationOrde red By: Joshua Viramontes on 12-04-2022 PT Coag (PPP) [Time] 24.6 s 11.7-14.9 [facility] Laboratory - Hematology and Cell countsOrdered By: Joshua Viramontes on 12-04-2022 Erythrocyte distribution width (RBC) [Entitic vol] 47.1 fL 35.1-43.[address] [facility] Erythrocyte distribution width (RBC) [Ratio] 13.2 % 11.6-14.[address] [facility] Immature granulocytes/100 WBC (Bld) 0.600 % 0.0-0.[address] [facility] Comment on above: IG% - Immature Granu locytes (promyelocytes, myelocytes and metamyelocytes) > 1% indicates that a LEFT SHIFT is Present. MCH (RBC) [Entitic mass] 32.0 pg 27.0-32.[address] [facility] Nucleated RBC/100 WBC (Bld) [Ratio] 0 % 0-[address] [facility] MCHC Auto (RBC) [Mass/Vol]Or dered By: Joshua Viramontes on 12-04-2022 MCHC (RBC) [Mass/Vol] 32.8 g/dL 32-36 [facility] Mucus LM Ql (Urine sed)Order ed By: Joshua Viramontes on 12-04-2022 Mucus Ql (Urine sed) 0 SEEN /hpf [facility] Nitrite Test strip Ql (U)Ord ered By: Joshua Viramontes on 12-04-2022 Nitrite Ql (U) Negative Negative [facility] No Panel InformationOrdered By: Joshua Viramontes on 12-04-2022 Troponin I High Sensitivity 10 pg/mL 3.0-54.[address] [facility] Comment on above: Please Note: New Emily t Units and Gender Specific Reference Ranges. For more information see Policy Stat Procedure [place] High Sensitivity Troponin (TNIH) and attachments. Estimated Creatinine Clearance Calc 25.74 ml/min [facility] Estimated GFR (MDRD) Amer 41 mL/min >[address] [facility] Comment on above: GFR Calc Estimated GFR (MDRD) Non-Af Amer 34 mL/min >[address] [facility] Comment on above: Non- GFR Calc Platelets bldOrdered By: Tess Viramontes on 12-04-2022 Platelets (Bld) [#/Vol] 302 10*3/uL 150-[address] [facility] Protein Test strip Ql (U)Ord ered By: Joshua Viramontes on 12-04-2022 Protein Ql (U) 30 mg/dl Negative [facility] Serum or plasma albumin fernando urement (mass/volume)Ordered By: Joshua Viramontes on 12-04-2022 Albumin [Mass/Vol] 3.8 g/dL 3.2-5.0 [facility] Serum or plasma albumin/glob ulin mass ratioOrdered By: Joshua Viramontes on 12-04-2022 Albumin/Globulin [Mass ratio] 0.7 {ratio} 0.9-2.[address] [facility] Serum or plasma calcium fernando urement (mass/volume)Ordered By: Joshua Viramontes on 12-04-2022 Calcium [Mass/Vol] 9.8 mg/dL 8.5-10.1 [facility] Serum or plasma creatinine m easurement (mass/volume)Ordered By: Joshua Viramontes on 12-04-2022 Creatinine [Mass/Vol] 1.55 mg/dL 0.55-1.02 [facility] Comment on above: The validity of the calculated GFR & GFRAA in patients over 70 years has not been determined. Clinical correlation is essential. Serum or plasma urea nitroge n measurement (mass/volume)Ordered By: Joshua Viramontes on 12-04-2022 Urea nitrogen [Mass/Vol] 24 mg/dL 7-[address] [facility] Squamous epithelial cells de tection in urine sediment by light microscopyOrdered By: Joshua Viramontes on 12-04-2022 Epithelial cells.squamous LM Ql (Urine sed) 0-5 SEEN /hpf 5-[address] [facility] Thin prep Papanicolaou smear with manual screeningOrdered By: Joshua Viramontes on 12-04-2022 Thin prep Papanicolaou smear with manual screening 20 U/L 15-[address] [facility] Thin prep Papanicolaou smear with manual screening 8 5-[address] [facility] Urine blood detectionOrdered By: Joshua Viramontes on 12-04-2022 RBC Ql (U) 50 /ul Negative [facility] RBC Ql (U) 0 SEEN /hpf 0-[address] [facility] Urine clarityOrdered By: Tess Viramontes on 12-04-2022 Clarity (U) Turbid Clear [facility] Urine color determinationOrd ered By: Joshua Viramontes on 12-04-2022 Color (U) Yellow Yellow [facility] Urine glucose detectionOrder ed By: Joshua Viramontes on 12-04-2022 Glucose Ql (U) 1000 mg/dl Normal [facility] Urine leukocyte esterase det ection by dipstickOrdered By: Joshua Viramontes on 12-04-2022 Leukocyte esterase Test strip Ql (U) 500 /ul Negative [facility] Urine pHOrdered By: Joshua holcomb on 12-04-2022 pH (U) 6.0 [pH] 5.0 - 8.[address] [facility] Urine sediment bacteria coun t by microscopy (number/high power field)Ordered By: Joshua Viramontes on 12-04-2022 Bacteria LM.HPF (Urine sed) [#/Area] 1 /[HPF] None Seen [facility] Urine specific gravity measu rementOrdered By: Joshua Viramontes on 12-04-2022 Specific gravity (U) [Rel density] 1.010 1.002-1.[address] [facility] Urobilinogen Auto test strip Ql (U)Ordered By: Joshua Viramontes on 12-04-2022 Urobilinogen Ql (U) Normal mg/dl Normal [facility] CNNURSEon 09-06-2020 CNNURSE Nurse Visit (COVAMD) ANTONIO GUPTA ([id number]) 1940 F Date Time Provider Department 09/06/20 YONG HUNT (DICK) COVLAKIA During your visit today, we recorded the following information about you: Allergies As of Date: 09/06/2020 Noted Allergy Reaction POISON FANY 10/17/2005 SULFA (SULFONAMIDE ANTIBIOTICS) 10/17/2005 4 - Hives Date Reviewed: 10/11/2019 Reviewed by: Cara Herring MA - Fully Assessed Order(s):[employer] SARS-COV-2 VACCINE 2D DOSE APPT [[id number]] Order #: [id number] Prescriptions as of 09/06/2020 Sig: ONETOUCH VERIO TEST STRIPS Test blood sugar(s) 1 times d* LEVOTHYROXINE 75 MCG TABLET Take 1 tablet by mouth once d* LANCETS 33 GAUGE Test blood sugar(s) 1 daily. * OMEPRAZOLE 40 MG CAPSULE,PREETI* Take 1 capsule by mouth once * BUSPIRONE 15 MG TABLET Take 1 tablet by mouth twice * X AMITRIPTYLINE 25 MG TABLET Take 1 tablet by mouth daily * TIZANIDINE 2 MG CAPSULE Take 1 capsule by mouth twice* X OXYCODONE-ACETAMINOPH EN 10 MG* Take 1 tablet by mouth every * X DOCUSATE SODIUM 100 MG CAPSULE Take 100 mg by mouth at bedti* HYDROCHLOROTHIAZIDE 12.5 MG C* Take 1 capsule by mouth once * LOSARTAN 100 MG TABLET Take 1 tablet by mouth once d* METOPROLOL SUCCINATE ER 25 MG* Take 1 tablet by mouth once d* AMLODIPINE 10 MG TABLET Take 1 tablet by mouth once d* NITROGLYCERIN 0.4 MG SUBLINGU* Dissolve 1 tablet under the t* RIVAROXABAN 20 MG TABLET Take 20 mg by mouth daily wit* SIMVASTATIN 20 MG TABLET Take 20 mg by mouth daily at * * DIPHENHYDRAMINE 25 MG CAPSULE Take 1 capsule by mouth every* * ACETAMINOPHEN 500 MG TABLET Take 2 tablets by mouth every* Problem List As Of Date 09/06/2020 Noted Resolved Contact dermatitis and other eczema, due to uns*10/17/2005 08/12/2010 Hyperlipidemia [E78.5] 07/20/2007 GOUT NOS [M10.9] 07/20/2007 Gastritis/duodenitis [K29.70, K29.90] 10/04/2008 08/13/2011 Routine general medical examination at [facility]*10/04/2008 08/12/2010 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, M94.9] 10/31/2008 Depression [F32.9] 08/12/2010 CAD (coronary artery disease) [I25.10] 10/08/2010 Essential hypertension, benign [I10] 08/13/2011 S/P angioplasty with stent 11/13/2012 Backache, unspecified [M54.9] 11/08/2013 GERD (gastroesophageal reflux disease) [K21.9] 10/03/2014 Paroxysmal atrial fibrillation (HCC) [I48.0] 09/18/2015 Pacemaker [Z95.0] 09/18/2015 Iron deficiency anemia [D50.9] 08/19/2016 Malabsorption of iron [K90.9] 08/19/2016 12/01/2016 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 Hypothyroidism [E03.9] 12/01/2016 Diabetes mellitus (HCC) [E11.9] 06/08/2017 CKD (chronic kidney disease) Stage 3, GFR 30-59*12/14/2017 Encounter Status:[facility] Office Visit: [facility] 05-26-20 17 Dietary management education, guidance, and counseling (procedure) yes Invalid Interpretation Code [facility] [employer]: [phone] Documentation of current medications (procedure) Done Invalid Interpretation Code [facility]: [phone] Fall risk assessment No Invalid Interpretation Code [facility] [employer]: [phone] Chart Maintenanceon 05-15-20 16 Left ventricular Ejection fraction 65 % Invalid Interpretation Code [facility]: [phone] Office Visiton 05-15-2016 Tobacco use [facility] Former smoker Invalid Interpretation Code [facility] [employer]: [phone] Lab Report: Basic Metabolic Profile (BMP)on 04-04-2016 Anion gap 6 mmol/L Invalid Interpretation Code 5-15 [facility] [employer]: [phone] BUN/Creatinine Ratio 14.7 RATIO Invalid Interpretation Code 10-20 [facility]: [phone] Calcium 9.2 mg/dL Invalid Interpretation Code 8.5-10.1 [facility]: [phone] Chloride 101 mmol/L Invalid Interpretation Code 98-107 [facility]: [phone] CO2 27.0 mmol/L Invalid Interpretation Code 21.0-32.0 [facility]: [phone] Creatinine 1.50 mg/dL High 0.55-1.20 [employer]: [phone] eGFR (non-black) 43 mL/min/{1.73_m2} Low >60 [facility] Work Phone: [phone] eGFR (non-black) 36 mL/min/{1.73_m2} Low >60 [facility] Work Phone: [phone] Glucose mass conc 106 mg/dL Invalid Interpretation Code 70-110 [facility] Work Phone: [phone] Potassium molar conc 4.5 mmol/L Invalid Interpretation Code 3.5-5.1 [facility] Work Phone: [phone] Sodium 134 mmol/L Low 136-145 [facility] Work Phone: [phone] Urea nitrogen 22 mg/dL High 7-18 [facility] Work Phone: [phone] Lab Report: Lipid Profileon 02-14-2016 Cholesterol 135 mg/dL Invalid Interpretation Code 200 [facility] Work Phone: [phone] HDL Cholesterol 33 mg/dL Low [facility] Work Phone: [phone] LDL Cholesterol 69 mg/dL Invalid Interpretation Code 0-130 [facility] Work Phone: [phone] Triglyceride 166 mg/dL Invalid Interpretation Code [facility] Work Phone: [phone] very low density lipoproteins 33 mg/dL Invalid Interpretation Code 5-40 [facility] Work Phone: [phone]) Lab Report: Liver Profileon 02-14-2016 Alanine aminotransferase (ALT) 23 U/L Invalid Interpretation Code 12-78 [facility] Work Phone: [phone] Albumin 3.5 g/dL Invalid Interpretation Code 3.4-5.0 [facility] Work Phone: [phone] Alkaline phosphatase (ALP) 101 U/L Invalid Interpretation Code 50-136 [facility] Work Phone: [phone] Aspartate aminotransferase (AST) 15 U/L Invalid Interpretation Code 15-37 [facility] Work Phone: [phone] Bilirubin (direct) 0.11 mg/dL Invalid Interpretation Code 0.00-0.30 [facility] Work Phone: [phone] Bilirubin (total) 0.30 mg/dL Invalid Interpretation Code 0.20-1.00 [facility] Work Phone: [phone] Globulin 4.8 g/dL High 2.3-3.5 [facility] Work Phone: [phone] Protein 8.3 g/dL High 6.4-8.2 [facility] Work Phone: [phone]) Lab Report: CBC-Complete Blo od Cnt No Diffon 01-22-2016 Erythrocyte distribution width Auto Ratio (RBC) 14.1 % Invalid Interpretation Code 11.6-14.6 [facility] Work Phone: [phone] Erythrocytes (RBC) 4.20 10*6/uL Invalid Interpretation Code 4.2-5.4 [facility] Work Phone: [phone] Hematocrit (HCT) 37.1 % Invalid Interpretation Code 37-47 [facility] Work Phone: [phone] Hemoglobin mass conc (Bld) 11.9 g/dL Low 12.0-15.0 [facility] Work Phone: [phone] MCH 28.3 pg Invalid Interpretation Code 27.0-32.0 [facility] Work Phone: [phone] MCHC mass conc (RBC) 32.1 G/GL Invalid Interpretation Code 32-36 [facility] Work Phone: [phone] MCV 88.3 fL Invalid Interpretation Code 81-99 [facility] Work Phone: [phone] Platelets 321 10*3/mm3 Invalid Interpretation Code 150-450 [facility] Work Phone: [phone] PMV by Misael 10.9 fL Invalid Interpretation Code 6.2-12.0 [facility] Work Phone: [phone] RDW SD 45.0 fL High 35.1-43.9 [facility] Work Phone: [phone] WBC (Leukocytes) 6.9 10*3/uL Invalid Interpretation Code 4.4-11.0 [facility] Work Phone: [phone] Lab Report: T4 Total, Thyrox inon 11-10-2015 Thyroxine (T4) 11.8 ug/dL Invalid Interpretation Code 4.8-13.9 [facility] Work Phone: [phone]) Lab Report: Thyroid Stim Hor chris (TSH)on 11-10-2015 Thyroid stimulating hormone (TSH) 1.65 u[iU]/mL Invalid Interpretation Code 0.358-3.74 [facility] Work Phone: [phone] Lab Report: BNP,B-Type NATRI URETIC PEPTIDEon 09-26-2015 BNP 105.3 pg/mL High 0-100 [facility] Work Phone: [phone] Lab Report: CBC W/Diff, Auto matedon 09-26-2015 Absolute Neut 2.7 X10 3/UL Invalid Interpretation Code 2.0-7.7 [facility] Work Phone: [phone] Basophils/100 WBC Auto (Bld) 0.4 % Invalid Interpretation Code 0-1 [facility] Work Phone: [phone] Eosinophils/100 leukocytes 2.7 % Invalid Interpretation Code 0-5 [facility] Work Phone: [phone] Immature granulocytes/100 WBC (Bld) 0.200 % Invalid Interpretation Code 0.0-0.9 [facility] Work Phone: [phone] Lymphocytes 1.75 X10 3/UL Invalid Interpretation Code 0.83-4.51 [facility] Work Phone: [phone] Lymphocytes/100 leukocytes 34.3 % Invalid Interpretation Code 19-41 [facility] Work Phone: [phone] Monocytes/100 leukocytes 10.0 % Invalid Interpretation Code 0-10 [facility] Work Phone: [phone] Neutrophils/100 WBC Auto (Bld) 52.4 % Invalid Interpretation Code 47-70 [facility] Work Phone: [phone] Lab Report: Magnesiumon Magnesium 1.8 mg/dL Invalid Interpretation Code 1.8-2.4 [facility] Work Phone: [phone] Replaced Document: Malathi Marquezon 03-20-2015 BUN (urea nitrogen) Sinus Bradycardia -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 ABNORMAL Invalid Interpretation Code [facility] Work Phone: [phone] EKG QRS axis -60 deg Invalid Interpretation Code [facility] Work Phone: [phone] P Walker 46 deg Invalid Interpretation Code [facility] Work Phone: [phone] IA Interval 184 ms Invalid Interpretation Code [facility] Work Phone: [phone] Pulse (Heart Rate) 58 /min Invalid Interpretation Code [facility] Work Phone: QRS Duration 146 ms Invalid Interpretation Code [facility] Work Phone: [phone] QT Interval new path ms Invalid Interpretation Code [facility] Work Phone: [phone] QTc Deng 455 ms Invalid Interpretation Code [facility] Work Phone: [phone] T Walker 19 deg Invalid Interpretation Code [facility] Work Phone: [phone] Lab Report: CBC W/Diff, Auto matedon 02-13-2015 Absolute Neut 2.9 X10 3/UL Invalid Interpretation Code 2.0-7.7 [facility] Work Phone: [phone] Lymphocytes 1.41 X10 3/UL Invalid Interpretation Code 0.83-4.51 [facility] Work Phone: [phone] Office Visiton 11-09-2014 cardiac risk group C Invalid Interpretation Code [facility] Work Phone: [phone] General cardiovascular disease 10Y risk [#] Garrison.D'Agostmagdalena N/A Invalid Interpretation Code [facility] Work Phone: [phone] Office Visiton 09-29-2013 Alcoholism counseling (procedure) no Invalid Interpretation Code [facility] Work Phone: [phone] Replaced Document: [employer] [facility] CG Observationson 03-25-2013 Pulse (Heart Rate) 478 ms Invalid Interpretation Code [facility] Work Phone: [phone] Vital Signs Date Time Vital Sign Value Performing Clinician Facility 02-06-2025 10:53-0400 Body mass index (BMI) [Ratio] 31.31 kg/m2 Carlos House APRN.HOTEL SALES MANAGER Work Phone: [facility] 02-06-2025 10:53-0400 Body temperature 98.4 [degF] Carlos House APRN.HOTEL SALES MANAGER Work Phone: [facility] 02-06-2025 10:53-0400 Body weight 88 kg Carlos House APRN.HOTEL SALES MANAGER Work Phone: [facility] 02-06-2025 10:53-0400 Diastolic blood pressure 78 mm[Hg] Carlos House APRN.HOTEL SALES MANAGER Work Phone: [facility] 02-06-2025 10:53-0400 Heart rate 80 /min Carlos Lacy RETURNS PROCESSOR.HOTEL SALES MANAGER Work Phone: [facility] 02-06-2025 10:53-0400 Respiratory rate 16 /min Carlosscarlett House RETURNS PROCESSOR.HOTEL SALES MANAGER Work Phone: [facility] 02-06-2025 10:53-0400 SaO2% (BldA) [Mass fraction] 94 % Carlosjose House RETURNS PROCESSOR.HOTEL SALES MANAGER Work Phone: [facility] 02-06-2025 10:53-0400 Systolic blood pressure 138 mm[Hg] Carlos House RETURNS PROCESSOR.HOTEL SALES MANAGER Work Phone: [facility] 11-18-2024 06:01-0400 Body mass index (BMI) [Ratio] 29.6 kg/m2 Dr. Victor M Rocha MD Work Phone: [facility] 11-18-2024 06:01-0400 Body weight 88.[address] Victor M Rocha MD Work Phone: [phone] [place] [address] 11-18-2024 06:01-0400 Diastolic blood pressure 76 mm[Hg] Dr. Victor M Rocha MD Work Phone: [phone] [place] [address] 11-18-2024 06:01-0400 Heart rate 67 /min Dr. Victor M Rocha MD Work Phone: [phone] [place] [address] 11-18-2024 06:01-0400 Respiratory rate 18 /min Dr. Victor M Rocha MD Work Phone: [phone] [place] [address] 11-18-2024 06:01-0400 SaO2% (BldA) [Mass fraction] 92 % Dr. Victor M Rocha MD Work Phone: [phone] [place] [address] 11-18-2024 06:01-0400 Systolic blood pressure 134 mm[Hg] Dr. Victor M Rocha MD Work Phone: [phone] [address] 08-12-2024 12:46-0500 Body mass index (BMI) [Ratio] 30.51 kg/m2 Carlos House RETURNS PROCESSOR.HOTEL SALES MANAGER Work Phone: [facility] 08-12-2024 12:46-0500 Body weight 85.73 kg Carlos Lacy RETURNS PROCESSOR.HOTEL SALES MANAGER Work Phone: [facility] 08-12-2024 12:46-0500 Diastolic blood pressure 86 mm[Hg] Carlos Lacy RETURNS PROCESSOR.HOTEL SALES MANAGER Work Phone: [facility] 08-12-2024 12:46-0500 Heart rate 80 /min Carlos Lacy RETURNS PROCESSOR.HOTEL SALES MANAGER Work Phone: [facility] 08-12-2024 12:46-0500 Respiratory rate 18 /min Carlos Lacy RETURNS PROCESSOR.HOTEL SALES MANAGER Work Phone: [facility] 08-12-2024 12:46-0500 SaO2% (BldA) [Mass fraction] 96 % Carlos Lacy RETURNS PROCESSOR.HOTEL SALES MANAGER Work Phone: [facility] 08-12-2024 12:46-0500 Systolic blood pressure 128 mm[Hg] Carlos Lacy RETURNS PROCESSOR.HOTEL SALES MANAGER Work Phone: [facility] 04-06-2024 11:28-0400 Body mass index (BMI) [Ratio] 29.82 kg/m2 Yovana Raphaelf RETURNS PROCESSOR.HOTEL SALES MANAGER Work Phone: [facility] 04-06-2024 11:28-0400 Body weight 83.8 kg Yovana Painter RETURNS PROCESSOR.HOTEL SALES MANAGER Work Phone: [facility] 04-06-2024 11:28-0400 Diastolic blood pressure 77 mm[Hg] Yovana Sanchezhof RETURNS PROCESSOR.HOTEL SALES MANAGER Work Phone: [facility] 04-06-2024 11:28-0400 Heart rate 90 /min Yovana Raphaelf RETURNS PROCESSOR.HOTEL SALES MANAGER Work Phone: [facility] 04-06-2024 11:28-0400 Respiratory rate 16 /min Yovanachadd Sanchezhof RETURNS PROCESSOR.HOTEL SALES MANAGER Work Phone: [facility] 04-06-2024 11:28-0400 SaO2% (BldA) [Mass fraction] 95 % Yovana Painter RETURNS PROCESSOR.HOTEL SALES MANAGER Work Phone: [facility] 04-06-2024 11:28-0400 Systolic blood pressure 127 mm[Hg] Yovana Painter RETURNS PROCESSOR.HOTEL SALES MANAGER Work Phone: [facility] 04-01-2024 08:31-0400 Body mass index (BMI) [Ratio] 30.99 kg/m2 Joshua Masci DO Work Phone: [facility] 04-01-2024 08:31-0400 Body temperature 97.11 [degF] Joshua Masci DO Work Phone: [facility] 04-01-2024 08:31-0400 Body weight 87.09 kg Joshua Masci DO Work Phone: [facility] 04-01-2024 08:31-0400 Diastolic blood pressure 73 mm[Hg] Joshua Masci DO Work Phone: [facility] 04-01-2024 08:31-0400 Heart rate 90 /min Joshua Masci DO Work Phone: [facility] 04-01-2024 08:31-0400 SaO2% (BldA) [Mass fraction] 92 % Joshua Masci DO Work Phone: [facility] 04-01-2024 08:31-0400 Systolic blood pressure 128 mm[Hg] Joshua Masci DO Work Phone: [facility] 03-25-2024 09:09-0400 Body mass index (BMI) [Ratio] 33.17 kg/m2 Joshua Masci DO Work Phone: [facility] 03-25-2024 09:09-0400 Body temperature 97.59 [degF] Joshua Masci DO Work Phone: [facility] 03-25-2024 09:09-0400 Body weight 93.21 kg Joshua Masci DO Work Phone: [facility] 03-25-2024 09:09-0400 Diastolic blood pressure 72 mm[Hg] Joshua Masci DO Work Phone: [facility] 03-25-2024 09:09-0400 Heart rate 90 /min Joshua Masci DO Work Phone: [facility] 03-25-2024 09:09-0400 SaO2% (BldA) [Mass fraction] 82 % Joshua Masci DO Work Phone: [facility] 03-25-2024 09:09-0400 Systolic blood pressure 137 mm[Hg] Joshua Masci DO Work Phone: [facility] 02-26-2024 10:59-0400 Body mass index (BMI) [Ratio] 31.55 kg/m2 Joshua Masci DO Work Phone: [facility] 02-26-2024 10:59-0400 Body temperature 97.59 [degF] Joshua Masci DO Work Phone: [facility] 02-26-2024 10:59-0400 Body weight 88.68 kg Joshua Masci DO Work Phone: [facility] 02-26-2024 10:59-0400 Diastolic blood pressure 76 mm[Hg] Joshua Masci DO Work Phone: [facility] 02-26-2024 10:59-0400 Heart rate 91 /min Joshua Masci DO Work Phone: [facility] 02-26-2024 10:59-0400 SaO2% (BldA) [Mass fraction] 95 % Joshua Masci DO Work Phone: [facility] 02-26-2024 10:59-0400 Systolic blood pressure 146 mm[Hg] Joshua Masci DO Work Phone: [facility] 02-16-2024 12:07-0400 Body mass index (BMI) [Ratio] 32.17 kg/m2 Sean Ridley PA Work Phone: [facility] 02-16-2024 12:07-0400 Body temperature 96.91 [degF] Sean Ridley PA Work Phone: [facility] 02-16-2024 12:07-0400 Body weight 90.4 kg Krislyn Aberegg PA Work Phone: [facility] 02-16-2024 12:07-0400 Diastolic blood pressure 82 mm[Hg] Krislyn Aberegg PA Work Phone: [facility] 02-16-2024 12:07-0400 Heart rate 88 /min Krislyn Aberegg PA Work Phone: [facility] 02-16-2024 12:07-0400 Respiratory rate 16 /min Krislyn Aberegg PA Work Phone: [facility] 02-16-2024 12:07-0400 SaO2% (BldA) [Mass fraction] 96 % Krislyn Aberegg PA Work Phone: [facility] 02-16-2024 12:07-0400 Systolic blood pressure 132 mm[Hg] Krislyn Aberegg PA Work Phone: [facility] 02-01-2024 12:31-0400 Body mass index (BMI) [Ratio] 32.07 kg/m2 Victor M Rocha MD Work Phone: [facility] 02-01-2024 12:31-0400 Body weight 90.13 kg Victor M Rocha MD Work Phone: [facility] 02-01-2024 12:31-0400 Diastolic blood pressure 74 mm[Hg] Victor M Rocha MD Work Phone: [facility] 02-01-2024 12:31-0400 Heart rate 88 /min Victor M Rocha MD Work Phone: [facility] 02-01-2024 12:31-0400 Respiratory rate 16 /min Victor M Rocha MD Work Phone: [facility] 02-01-2024 12:31-0400 Systolic blood pressure 124 mm[Hg] Victor M Rocha MD Work Phone: [facility] 01-15-2024 10:45-0400 Body mass index (BMI) [Ratio] 32.38 kg/m2 Daniel Bucio MD Work Phone: [facility] 01-15-2024 10:45-0400 Body temperature 97.5 [degF] Daniel Bucio MD Work Phone: [facility] 01-15-2024 10:45-0400 Body weight 91 kg Daniel Bucio MD Work Phone: [facility] 01-15-2024 10:45-0400 Diastolic blood pressure 58 mm[Hg] Daniel Bucio MD Work Phone: [facility] 01-15-2024 10:45-0400 Heart rate 91 /min Daniel Bucio MD Work Phone: [facility] 01-15-2024 10:45-0400 Respiratory rate 22 /min Daniel Bucio MD Work Phone: [facility] 01-15-2024 10:45-0400 SaO2% (BldA) [Mass fraction] 95 % Daniel Bucio MD Work Phone: [facility] 01-15-2024 10:45-0400 Systolic blood pressure 128 mm[Hg] Daniel Bucio MD Work Phone: [facility] 12-24-2023 15:53-0400 Body mass index (BMI) [Ratio] 32.96 kg/m2 Victor M Rocha MD Work Phone: [facility] 12-24-2023 15:53-0400 Body weight 92.63 kg Victor M Rocha MD Work Phone: [facility] 12-24-2023 15:53-0400 Diastolic blood pressure 66 mm[Hg] Victor M Rocha MD Work Phone: [facility] 12-24-2023 15:53-0400 Heart rate 90 /min Victor M Rocha MD Work Phone: [facility] 12-24-2023 15:53-0400 Respiratory rate 20 /min Victor M Rocha MD Work Phone: [facility] 12-24-2023 15:53-0400 SaO2% (BldA) [Mass fraction] 94 % Victor M Rocha MD Work Phone: [facility] 12-24-2023 15:53-0400 Systolic blood pressure 124 mm[Hg] Victor M Rocha MD Work Phone: [facility] 12-23-2023 14:10-0400 Body temperature 97.3 [degF] Treatment Wstr Work Phone: [facility] 12-23-2023 14:10-0400 Diastolic blood pressure 76 mm[Hg] Treatment Wstr Work Phone: [facility] 12-23-2023 14:10-0400 Heart rate 90 /min Treatment Wstr Work Phone: [facility] 12-23-2023 14:10-0400 SaO2% (BldA) [Mass fraction] 94 % Treatment Wstr Work Phone: [facility] 12-23-2023 14:10-0400 Systolic blood pressure 142 mm[Hg] Treatment Wstr Work Phone: [facility] 12-11-2023 14:21-0400 Body temperature 97.9 [degF] Treatment Wstr Work Phone: [facility] 12-11-2023 14:21-0400 Diastolic blood pressure 59 mm[Hg] Treatment Wstr Work Phone: [facility] 12-11-2023 14:21-0400 Heart rate 91 /min Treatment Wstr Work Phone: [facility] 12-11-2023 14:21-0400 SaO2% (BldA) [Mass fraction] 93 % Treatment Wstr Work Phone: [facility] 12-11-2023 14:21-0400 Systolic blood pressure 97 mm[Hg] Treatment Wstr Work Phone: [facility] 12-09-2023 13:49-0400 Body temperature 97.39 [degF] Treatment Wstr Work Phone: [facility] 12-09-2023 13:49-0400 Diastolic blood pressure 56 mm[Hg] Treatment Wstr Work Phone: [facility] 12-09-2023 13:49-0400 Heart rate 91 /min Treatment Wstr Work Phone: [facility] 12-09-2023 13:49-0400 SaO2% (BldA) [Mass fraction] 93 % Treatment Wstr Work Phone: [facility] 12-09-2023 13:49-0400 Systolic blood pressure 128 mm[Hg] Treatment Wstr Work Phone: [facility] 12-02-2023 13:36-0400 Body temperature 97.39 [degF] Treatment Wstr Work Phone: [facility] 12-02-2023 13:36-0400 Diastolic blood pressure 62 mm[Hg] Treatment Wstr Work Phone: [facility] 12-02-2023 13:36-0400 Heart rate 79 /min Treatment Wstr Work Phone: [facility] 12-02-2023 13:36-0400 Respiratory rate 18 /min Treatment Wstr Work Phone: [facility] 12-02-2023 13:36-0400 SaO2% (BldA) [Mass fraction] 99 % Treatment Wstr Work Phone: [facility] 12-02-2023 13:36-0400 Systolic blood pressure 108 mm[Hg] Treatment Wstr Work Phone: [facility] 11-26-2023 15:06-0400 Body temperature 97.3 [degF] Treatment Wstr Work Phone: [facility] 11-26-2023 15:06-0400 Diastolic blood pressure 74 mm[Hg] Treatment Wstr Work Phone: [facility] 11-26-2023 15:06-0400 Heart rate 90 /min Treatment Wstr Work Phone: [facility] 11-26-2023 15:06-0400 Respiratory rate 20 /min Treatment Wstr Work Phone: [facility] 11-26-2023 15:06-0400 SaO2% (BldA) [Mass fraction] 93 % Treatment Wstr Work Phone: [facility] 11-26-2023 15:06-0400 Systolic blood pressure 114 mm[Hg] Treatment Wstr Work Phone: [facility] 11-23-2023 14:38-0400 Body mass index (BMI) [Ratio] 34.46 kg/m2 Victor M Rocha MD Work Phone: [facility] 11-23-2023 14:38-0400 Body weight 96.84 kg Victor M Rocha MD Work Phone: [facility] 11-23-2023 14:38-0400 Diastolic blood pressure 76 mm[Hg] Victor M Rocha MD Work Phone: [facility] 11-23-2023 14:38-0400 Heart rate 68 /min Victor M Rocha MD Work Phone: [facility] 11-23-2023 14:38-0400 Respiratory rate 18 /min Victor M Rocha MD Work Phone: [facility] 11-23-2023 14:38-0400 Systolic blood pressure 120 mm[Hg] Victor M Rocha MD Work Phone: [facility] 11-17-2023 11:31-0400 Body mass index (BMI) [Ratio] 34.38 kg/m2 Joshua Vogeli DO Work Phone: [facility] 11-17-2023 11:31-0400 Body temperature 97.5 [degF] Joshua Masci DO Work Phone: [facility] 11-17-2023 11:31-0400 Body weight 96.62 kg Joshua Masci DO Work Phone: [facility] 11-17-2023 11:31-0400 Diastolic blood pressure 76 mm[Hg] Joshua Lelai DO Work Phone: [facility] 11-17-2023 11:31-0400 Heart rate 89 /min Joshua Vogeli DO Work Phone: [facility] 11-17-2023 11:31-0400 SaO2% (BldA) [Mass fraction] 93 % Joshua Baker DO Work Phone: [facility] 11-17-2023 11:31-0400 Systolic blood pressure 131 mm[Hg] Joshua Olivia DO Work Phone: [facility] 10-30-2023 10:25-0400 Body weight 95.89 kg Victor M Rocha MD Work Phone: [facility] 10-30-2023 10:25-0400 Diastolic blood pressure 64 mm[Hg] Victor M Rocha MD Work Phone: [facility] 10-30-2023 10:25-0400 Heart rate 90 /min Victor M Rocha MD Work Phone: [facility] 10-30-2023 10:25-0400 Respiratory rate 18 /min Victor M Rocha MD Work Phone: [facility] 10-30-2023 10:25-0400 SaO2% (BldA) [Mass fraction] 100 % Victor M Rocha MD Work Phone: [facility] 10-30-2023 10:25-0400 Systolic blood pressure 118 mm[Hg] Victor M Rocha MD Work Phone: [facility] 06-22-2023 11:34-0500 Body temperature 98.71 [degF] Ana Podlogar RETURNS PROCESSOR.HOTEL SALES MANAGER Work Phone: [facility] 06-22-2023 11:34-0500 Body weight 93.35 kg Ana Podlogar RETURNS PROCESSOR.HOTEL SALES MANAGER Work Phone: [facility] 06-22-2023 11:34-0500 Diastolic blood pressure 62 mm[Hg] Ana Podlogar RETURNS PROCESSOR.HOTEL SALES MANAGER Work Phone: [facility] 06-22-2023 11:34-0500 Heart rate 90 /min Ana Podlogar RETURNS PROCESSOR.HOTEL SALES MANAGER Work Phone: [facility] 06-22-2023 11:34-0500 Respiratory rate 18 /min Ana Kebede RETURNS PROCESSOR.HOTEL SALES MANAGER Work Phone: [facility] 06-22-2023 11:34-0500 SaO2% (BldA) [Mass fraction] 97 % Ana Valdivialogyolis RETURNS PROCESSOR.HOTEL SALES MANAGER Work Phone: [facility] 06-22-2023 11:34-0500 Systolic blood pressure 122 mm[Hg] Ana Valdivialogyolis RETURNS PROCESSOR.HOTEL SALES MANAGER Work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 Work Phone: [facility] Department Work Phone: Start: 06-15-2023 Telephone encounter Victor M hayes MD Work Phone: [address] [place] [address] Comment on above: Patient Update Start: 06-05-2023 End: 06-05-2023 Patient encounter procedure Beverley Reed APRN.HOTEL SALES MANAGER Work Phone: [facility] Comment on above: Urinary frequency (P rimary Dx); Glucosuria Start: 04-28-2023 End: 04-28-2023 Patient encounter procedure Victor M Rocha MD Work Phone: [facility] Comment on above: Essential hypertensi on, benign (Primary Dx); Hyperlipidemia, unspecified hyperlipidemia type; Type 2 diabetes mellitus with other diabetic kidney complication, without long-term current use of insulin (HCC); Hypothyroidism, unspecified type; Stage 3a chronic kidney disease (HCC); Gastroesophageal reflux disease, unspecified whether esophagitis present; Depression, unspecified depression type; Paroxysmal atrial fibrillation (HCC); Iron deficiency anemia, unspecified iron deficiency anemia type; MGUS (monoclonal gammopathy of unknown significance); Constipation, unspecified constipation type; Need for influenza vaccination Start: 03-17-2023 Non-patient / Non-visit Dr. Jeferson Rocha Work Phone: [facility] Start: 03-17-2023 End: 03-17-[address] Victor M Rocha Work Phone: [facility] Work Phone: Start: 03-17-2023 End: 03-17-[address] Victor M Rocha Work Phone: [facility]-Cardiovascul ar Services Work Phone: Start: 02-17-2023 End: 02-17-[address] Victor M Rocha Work Phone: [facility] Work Phone: Start: 02-17-2023 End: 02-17-[address] Victor M Rocha Work Phone: [facility]-Laboratory Work Phone: Start: 02-17-2023 End: 02-17-[address] Victor M Rocha Work Phone: [facility] Work Phone: Start: 01-02-2023 Refill Victor M araujo MD Work Phone: [facility] Comment on above: Refill Request Start: 12-11-2022 End: 12-11-2022 Patient encounter procedure Victor M Rocha MD Work Phone: [facility] Comment on above: Hospital discharge f ollow-up (Primary Dx); Colitis, infectious; UTI (urinary tract infection), bacterial; Benign neoplasm of meninges, unspecified (HCC); Secondary pulmonary arterial hypertension (HCC); Stage 3a chronic kidney disease (HCC); Paroxysmal atrial fibrillation (HCC); 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HCC); Atherosclerotic heart disease of [place] coronary artery with other forms of angina pectoris (HCC) Start: 12-04-2022 End: 12-04-2022 Emergency department patient visit Dr. Victor M Rocha Work Phone: [facility]-Emergency Department Work Phone: Start: 10-24-2022 End: 10-24-2022 Patient encounter procedure Victor M Rocha MD Work Phone: [facility] Comment on above: Type 2 diabetes toyin itus with other diabetic kidney complication, without long-term current use of insulin (HCC) (Primary Dx); Hyperlipidemia, unspecified hyperlipidemia type; Coronary artery disease involving [place] coronary artery of [place] heart without angina pectoris; Essential hypertension, benign; Paroxysmal atrial fibrillation (HCC); Iron deficiency anemia, unspecified iron deficiency anemia type; Hypothyroidism, unspecified type; Type 2 diabetes mellitus with diabetic neuropathy, without long-term current use of insulin (HCC); 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d by mild nonproliferative retinopathy without macular edema, without long-term current use of insulin (HCC); Benign neoplasm of meninges, unspecified (HCC); MGUS (monoclonal gammopathy of unknown significance) Start: 09-09-2022 End: 09-09-2022 ambulatory Ida Magaña MD Work Phone: Hematology/Oncology Comment on above: MGUS (monoclonal janet mopathy of unknown significance) (Primary Dx); Stage 3a chronic kidney disease (HCC); Osteoporosis with current pathological fracture with routine healing, unspecified osteoporosis type, subsequent encounter Start: 09-09-2022 End: 09-09-2022 Patient encounter procedure Ida Magaña MD Work Phone: [facility] Start: 09-02-2022 Telephone encounter Joshua garcia DO Work Phone: Hematology/Oncology Comment on above: Patient Question; Ap pointment Start: 08-15-2022 End: 08-15-2022 Emergency department patient visit Dr. Victor M Rocha Work Phone: [facility]-Emergency Department Start: 07-16-2022 End: 07-16-[address] Victor M Rocha Work Phone: [facility] Start: 06-02-2022 Refill Victor M araujo MD Work Phone: [facility] Comment on above: Refill Request Start: 03-03-2022 Refill Victor M araujo MD Work Phone: [facility] Comment on above: Refill Request Start: 02-13-2022 Non-patient / Non-visit Dr. Jeferson Rocha Work Phone: [facility] Start: 02-13-2022 End: 02-13-[address] [facility] Start: 01-24-2022 End: 01-24-[address] Victor M Rocha Work Phone: [facility] Start: 01-14-2022 End: 01-14-2022 Patient encounter procedure Victor M Rocha MD Work Phone: [facility] Comment on above: Type 2 diabetes toyin itus with other diabetic kidney complication, without long-term current use of insulin (HCC) (Primary Dx); Hyperlipidemia, unspecified hyperlipidemia type; Coronary artery disease involving [place] coronary artery of [place] heart without angina pectoris; Essential hypertension, benign; Paroxysmal atrial fibrillation (HCC); Hypothyroidism, unspecified type; Stage 3a chronic kidney disease (HCC); Depression, unspecified depression type; Benign essential tremor; Arthritis of knee; Need for COVID-19 vaccine Start: 01-03-2022 End: 01-03-[address] Victor M Rocha Work Phone: [facility] Start: 10-11-2021 End: 10-11-2021 Patient encounter procedure Victor M Rocha MD Work Phone: [facility] Comment on above: Type 2 diabetes toyin itus with other diabetic kidney complication, without long-term current use of insulin (HCC) (Primary Dx); Depression, unspecified depression type; Hypothyroidism, unspecified type; MGUS (monoclonal gammopathy of unknown significance); Essential hypertension, benign; Paroxysmal atrial fibrillation (HCC) Start: 10-04-2008 End: 08-12-2010 Patient encounter status Joshua Lelasimon HURTADO Work Phone: [facility] Procedures Date Procedure Procedure Detail Performing Clinician Start: 02-06-2025 Radiologic exam ches t 2 views Carlos House APRN.HOTEL SALES MANAGER Work Phone: Start: 02-06-2025 End: 02-06-2025 Ecg routine ecg w/least 12 lds i&r only [facility] Provider Start: 01-15-2024 Urnls dip stick/tabl et rgnt auto w/o microscopy Kortney Ruiz APRN.HOTEL SALES MANAGER Work Phone: Start: 06-05-2023 Urnls dip stick/tabl et rgnt auto w/o microscopy Victorina Gomez RETURNS PROCESSOR.HOTEL SALES MANAGER Work Phone: Start: 04-28-2023 INFLUENZA VACCINE, P RSV FREE, AGE 65+ YR, HIGH DOSE, QUADRIVALENT (FLUZONE HIGH-DOSE) Victor M Rocha MD Work Phone: Start: 12-04-2022 Plain chest X-ray Dr. Stephen Rocha Work Phone: Start: 12-04-2022 Computed tomography of abdomen and pelvis with intravenous contrast Dr. Victor M Rocha Work Phone: Start: 12-04-2022 SARS-CoV-2 & FLU Ant igen (Rapid) Dr. Victor M Rocha Work Phone: Start: 12-04-[address] Victor M Rocha Work Phone: Start: 08-15-2022 Computed tomography of thoracic spine without contrast Dr. Victor M Rocha Work Phone: Start: 08-15-2022 X-ray of lumbar spin e, two or three views Dr. Victor M Rocha Work Phone: Start: 08-15-2022 Radiography of thora cic spine Dr. Victor M Rocha Work Phone: Start: 02-13-2022 Cardiovascular stres s test using pharmacologic stress agent Dr. Victor M Rocha Work Phone: Start: 01-14-2022 [employer] ( [employer] ) COVI D-19 VACCINE, AGE 12+ YR (BRIDGES TOP) Victor M Rocha MD Work Phone: Start: 05-26-2017 End: 05-26-2017 CANTILEVER CRANE OPERATOR Amber Palafox PA-C Work Phone: Start: 05-26-2017 End: 05-26-2017 Follow Up Appt 6 months Amber oliver PA-C Work Phone: Start: 05-26-2017 End: 05-26-2017 Follow Up Appt Other Amber baptiste PA-C Work Phone: Start: 03-20-2017 End: 05-14-2017 Follow Up Appt 3 months Stephen Jerry Start: 03-20-2017 End: 03-25-2017 Interrogation eval remote 90 d 1/2/demi chef lead pm Vinny Root MD Start: 03-20-2017 End: 05-14-2017 Pacer Clinic Vinny Root MD Start: 12-11-2016 End: 05-14-2017 Follow Up Appt 3 months Stephen Jerry Start: 12-11-2016 End: 12-21-2016 Interrogation eval remote 90 d 1/2/demi chef lead pm Vinny Root MD Start: 12-11-2016 End: 05-14-2017 Pacer Clinic Vinny Root MD Start: 11-21-2016 End: 05-14-2017 Follow Up Appt 6 months Stephen Jerry Start: 11-21-2016 End: 05-14-2017 MMM Vinny Root MD Start: 09-03-2016 End: 05-14-2017 Follow Up Appt 3 months Stephen Jerry Start: 09-03-2016 End: 09-04-2016 Interrogation eval remote 90 d 1/2/demi chef lead pm Vinny Root MD Start: 09-03-2016 End: 05-14-2017 Pacer Clinic Vinny Root MD Start: 08-18-2016 End: 05-26-2017 *Hepatic Function Panel Amber oliver PA-C Work Phone: Start: 08-18-2016 End: 05-26-2017 Lipid 1996 panel - Serum or Plasma Amber Palafox PA-C Work Phone: Start: 05-23-2016 End: 08-07-2016 Follow Up Appt 3 months Stephen Jerry Start: 05-23-2016 End: 08-07-2016 Pacer Clinic Vinny Root MD Start: 05-23-2016 End: 05-26-2016 Program eval implantable in persn dual ld pacer Vinny Root MD Start: 05-15-2016 End: 05-15-2016 Follow Up Appt 6 months Stephen Jerry Start: 05-15-2016 End: 05-15-2016 LORI Root MD Start: 04-22-2016 End: 08-07-2016 Follow Up Appt 1 month Vinny Root MD Start: 04-22-2016 End: 08-07-2016 Pacer Clinic Vinny Root MD Start: 04-22-2016 End: 04-22-2016 Program eval implantable in persn dual ld pacer Vinny Root MD Start: 04-03-2016 End: 04-04-2016 *BMP Vinny Root MD Start: 02-19-2016 End: 02-19-2016 Follow Up Appt 6 months Stephen Jerry Start: 02-19-2016 End: 02-19-2016 LORI Root MD Start: 02-12-2016 End: 02-14-2016 *Hepatic Function Panel Amber oliver PA-C Work Phone: Start: 02-12-2016 End: 02-14-2016 Lipid 1996 panel - Serum or Plasma Amber Palafox PA-C Work Phone: Start: 01-21-2016 End: 01-22-2016 CBC W Auto Differential panel - Blood Vinny Root MD Start: 01-21-2016 End: 02-14-2016 Follow Up Appt 3 months Stephen Jerry Start: 01-21-2016 End: 02-03-2016 Interrogation eval remote 90 d 1/2/demi chef lead pm Vinny Root MD Start: 01-21-2016 End: 02-14-2016 Pacer Clinic Vinny Root MD Start: 01-02-2016 End: 02-14-2016 Follow Up Appt 3 months Stephen Jerry Start: 01-02-2016 End: 01-04-2016 Interrogation eval remote 90 d 1/2/demi chef lead pm Vinny Root MD Start: 01-02-2016 End: 02-14-2016 Pacer Clinic Vinny Root MD Start: 11-10-2015 End: 11-12-2015 Thyrotropin [Units/volume] in Serum or Plasma Amber Palafox PA-C Work Phone: Start: 11-10-2015 End: 11-12-2015 Thyroxine (T4) [Mass/volume] in Serum or Plasma Amber Palafox PA-C Work Phone: Start: 10-31-2015 End: 10-31-2015 Follow Up Appt 3 months Stephen Jerry Start: 10-31-2015 End: 10-31-2015 MMM Vinny Root MD Start: 10-31-2015 End: 02-14-2016 Thyrotropin [Units/volume] in Serum or Plasma Vinny Root MD Start: 10-29-2015 End: 02-14-2016 Follow Up Appt 3 months Amber oliver PA-C Work Phone: Start: 10-29-2015 End: 02-14-2016 Pacer Clinic Amber Palafox PA-C Work Phone: Start: 10-29-2015 End: 10-29-2015 Program eval implantable in persn dual ld pacer Amber Palafox PA-C Work Phone: Start: 09-26-2015 End: 09-26-2015 *BMP Amber Palafox PA-C Work Phone: Start: 09-26-2015 End: 09-26-2015 *CBC with Differential Amber lima PA-C Work Phone: Start: 09-26-2015 End: 02-14-2016 Chest x-ray Amber Palafox PA-C Work Phone: Start: 09-26-2015 End: 02-14-2016 Follow Up Appt 3 months Stephen Jerry Start: 09-26-2015 End: 09-26-2015 Follow Up Appt Other Amber baptiste PA-C Work Phone: Start: 09-26-2015 End: 09-26-2015 Natriuretic peptide B [Mass/volume] in Blood Amber Palafox PA-C Work Phone: Start: 09-26-2015 End: 02-14-2016 Pacer Clinic Vinny Root MD Start: 09-26-2015 End: 09-26-2015 Program eval implantable in persn dual ld pacer Vinny Root MD Start: 09-25-2015 End: 09-25-2015 Thyrotropin [Units/volume] in Serum or Plasma Amber Palafox PA-C Work Phone: Start: 09-25-2015 End: 09-25-2015 Thyroxine (T4) [Mass/volume] in Serum or Plasma Amber Palafox PA-C Work Phone: Start: 08-13-2015 End: 08-15-2015 *Hepatic Function Panel Stephen Jerry Start: 08-13-2015 End: 08-15-2015 Lipid 1996 panel - Serum or Plasma Vinny Root MD Start: 08-10-2015 End: 08-14-2015 *BMP Amber Palafox PA-C Work Phone: Start: 08-10-2015 End: 08-14-2015 *Hepatic Function Panel Amber oliver PA-C Work Phone: Start: 08-10-2015 End: 08-10-2015 CANTILEVER CRANE OPERATOR Amber Palafox PA-C Work Phone: Start: 08-10-2015 End: 08-10-2015 Follow Up Appt 6 months Amber oliver PA-C Work Phone: Start: 08-10-2015 End: 08-14-2015 Lipid 1996 panel - Serum or Plasma Amber Palafox PA-C Work Phone: Start: 08-10-2015 End: 09-13-2015 Pulmonary Function Test - complete Amber Palafox PA-C Work Phone: Start: 08-10-2015 End: 08-14-2015 Thyrotropin [Units/volume] in Serum or Plasma Amber Palafox PA-C Work Phone: Start: 08-10-2015 End: 08-14-2015 Thyroxine (T4) [Mass/volume] in Serum or Plasma Amber Palafox PA-C Work Phone: Start: 06-15-2015 End: 07-26-2015 Follow Up Appt 3 months Amber oliver PA-C Work Phone: Start: 06-15-2015 End: 07-26-2015 Pacer Clinic Amber Palafox PA-C Work Phone: Start: 06-15-2015 End: 06-15-2015 Program eval implantable in persn dual ld pacer Amber Palafox PA-C Work Phone: Start: 05-08-2015 End: 05-09-2015 Documentation of current medications Vinny Root MD Start: 05-08-2015 End: 07-26-2015 Follow Up Appt 3 months Stephen Jerry Start: 05-08-2015 End: 07-26-2015 MMM Vinny Root MD Start: 04-30-2015 End: 04-30-2015 Arterial exam Vinny Root MD Start: 04-30-2015 End: 07-26-2015 Follow Up Appt 1 month Amber lima PA-C Work Phone: Start: 04-30-2015 End: 04-30-2015 Nurse, Teaching, Wound Check (no charge) Amber Palafox PA-C Work Phone: Start: 04-30-2015 End: 07-26-2015 Pacer Clinic Amber Palafox PA-C Work Phone: Start: 04-30-2015 End: 04-30-2015 Venous doppler Vinny Root MD Start: 04-17-2015 End: 04-17-2015 CANTILEVER CRANE OPERATOR Amber Palafox PA-C Work Phone: Start: 04-17-2015 End: 04-18-2015 Documentation of current medications Amber Palafox PA-C Work Phone: Start: 04-17-2015 End: 04-17-2015 Follow Up Appt 1 month Amber lima PA-C Work Phone: Start: 03-20-2015 End: 03-20-2015 *BMP Amber Palafox PA-C Work Phone: Start: 03-20-2015 End: 03-20-2015 CANTILEVER CRANE OPERATOR Amber Palafox PA-C Work Phone: Start: 03-20-2015 End: 03-21-2015 Documentation of current medications Amber Paalfox PA-C Work Phone: Start: 03-20-2015 End: 03-20-2015 Ecg routine ecg w/least 12 lds w/i&r Amber Palafox PA-C Work Phone: Start: 03-20-2015 End: 03-20-2015 Follow Up Appt 6 months Amber oliver PA-C Work Phone: Start: 03-20-2015 End: 03-20-2015 Magnesium [Mass/volume] in Serum or Plasma Amber Palafox PA-C Work Phone: Start: 03-20-2015 End: 03-20-2015 Thyrotropin [Units/volume] in Serum or Plasma Amber Palafox PA-C Work Phone: Start: 11-17-2014 End: 02-13-2015 *CBC with Differential Vinny oRot MD Start: 11-17-2014 End: 02-13-2015 *Hepatic Function Panel Stephen Jerry Start: 11-17-2014 End: 11-18-2014 Documentation of current medications Vinny Root MD Start: 11-17-2014 End: 11-17-2014 Follow Up Appt 4 months Stephen Jerry Start: 11-17-2014 End: 02-13-2015 Lipid 1996 panel - Serum or Plasma Vinny Root MD Start: 11-17-2014 End: 11-17-2014 MMM Vinny Root MD Start: 11-09-2014 End: 11-15-2014 *Hepatic Function Panel Stephen Jerry Start: 11-09-2014 End: 11-10-2014 Documentation of current medications Vinny Root MD Start: 11-09-2014 End: 11-09-2014 Follow Up Appt 6 months Stephen Jerry Start: 11-09-2014 End: 11-15-2014 Lipid 1996 panel - Serum or Plasma Vinny Root MD Start: 11-09-2014 End: 11-09-2014 MMStephen Root MD Start: 08-11-2014 End: 02-13-2015 *Hepatic Function Panel Stephen Jerry Start: 08-11-2014 End: 02-13-2015 Lipid 1996 panel - Serum or Plasma Vinny Root MD Start: 05-12-2014 End: 05-26-2014 *BMP Amber Palafox PA-C Work Phone: Start: 04-26-2014 End: 04-26-2014 CANTILEVER CRANE OPERATOR Amber Palafox PA-C Work Phone: Start: 04-26-2014 End: 04-26-2014 Follow Up Appt 6 months Amber oliver PA-C Work Phone: Start: 04-11-2014 End: 04-11-2014 *Hepatic Function Panel Stephen Jerry Start: 04-11-2014 End: 04-11-2014 Lipid 1996 panel - Serum or Plasma Vinny Root MD Start: 01-09-2014 End: 01-09-2014 *Hepatic Function Panel Stephen Jerry Start: 01-09-2014 End: 01-09-2014 Lipid 1996 panel - Serum or Plasma Vinny Root MD Start: 10-25-2013 End: 10-25-2013 Follow Up Appt 6 months Stephen Jerry Start: 10-25-2013 End: 10-25-2013 MMM Vinny Root MD Start: 09-29-2013 End: 09-29-2013 Follow Up Appt 6 months Stephen Jerry Start: 09-29-2013 End: 09-29-2013 MMStephen Root MD Start: 07-18-2013 End: 07-29-2013 *Hepatic Function Panel Stephen Jerry Start: 07-18-2013 End: 07-29-2013 Lipid 1996 panel - Serum or Plasma Vinny Root MD Start: 07-11-2013 End: 07-11-2013 *Hepatic Function Panel Amber oliver PA-C Work Phone: Start: 06-01-2013 End: 06-01-2013 *Hepatic Function Panel Amber oliver PA-C Work Phone: Start: 03-25-2013 End: 05-04-2013 *Hepatic Function Panel Amber oliver PA-C Work Phone: Start: 03-25-2013 End: 03-25-2013 CANTILEVER CRANE OPERATOR Amber Palafox PA-C Work Phone: Start: 03-25-2013 End: 03-25-2013 Follow Up Appt 6 months Amber oliver PA-C Work Phone: Start: 03-25-2013 End: 05-04-2013 Lipid 1996 panel - Serum or Plasma Amber Palafox PA-C Work Phone: Start: 03-21-2013 End: 03-21-2013 *Hepatic Function Panel Stephen Jerry Start: 03-21-2013 End: 03-25-2013 Lipid 1996 panel - Serum or Plasma Vinny Root MD Start: 12-13-2012 End: 12-13-2012 *Hepatic Function Panel Stephen Jerry Start: 11-10-2012 End: 11-10-2012 *Hepatic Function Panel Stephen Jerry Start: 11-10-2012 End: 11-10-2012 Lipid 1996 panel - Serum or Plasma Vinny Root MD Start: 09-07-2012 End: 09-07-2012 Follow Up Appt 6 months Stephen Jerry Start: 09-07-2012 End: 09-07-2012 MMM Vinny Root MD Start: 08-19-2012 End: 08-30-2012 *Hepatic Function Panel Stephen Jerry Start: 08-19-2012 End: 08-30-2012 Lipid 1996 panel - Serum or Plasma Vinny Root MD Start: 03-10-2012 End: 03-18-2012 24 hour holter monitor Vinny Root MD Start: 03-10-2012 End: 03-10-2012 Follow Up Appt 6 months Stephen Jerry Start: 03-10-2012 End: 03-12-2012 Nuclear stress test -exercise Vinny Root MD Start: 08-12-2011 End: 08-12-2011 Follow Up Appt 6 months Stephen Jerry Start: 09-10-2010 History of placement of stent for coronary artery disease History of coronary artery stent placement Amber BRISCOE Comment on above: PCI-SAMMY-RCA 09/17/2010 ; PCI-SAMMY-Mid LAD w/ 3.0 x 15 mm Promus Stent 09/25/2010 Plan of Treatment Date Care Activity Detail Author Start: 02-06-2026 Hepatitis B surface antibody level LDL Cholesterol [facility] Start: 08-18-2025 Glaucoma screening Dilated Retinal E xam [facility] Start: 08-12-2025 Medicare Annual Well ness Visit Medicare Annual Wellness Visit [facility] Start: 08-08-2025 Hepatitis B surface antibody level LDL Cholesterol [facility] Start: 03-13-2025 Influenza vaccination Influenza Vacc ine (#1) [facility] Start: 03-07-2025 End: 03-07-2025 Patient encounter procedure 03/07/2025 2:20 PM EDT Office Visit [facility] [address] [place] [address] Victor M Rocha MD [address] [place], [place] [id number] 4 week f/u weakness Family [facility] Comment on above: 4 week f/u weakness Start: 02-09-2025 End: 05-11-2025 CBC W Auto Differential panel - Blood COMPLETE BLOOD COUNT AND DIFFERENTIAL Lab Routine Essential hypertension, benign Type 2 diabetes mellitus with other diabetic kidney complication, without long-term current use of insulin (HCC) Expected: 02/09/2025 (Approximate), Expires: 05/11/2025 [facility] Comment on above: Expected: 02/09/2025 (Approximate), Expires: 05/11/2025 Start: 02-09-2025 End: 05-11-2025 Comprehensive metabolic 2000 panel - Serum or Plasma COMPREHENSIVE METABOLIC PANEL Lab Routine Essential hypertension, benign Type 2 diabetes mellitus with other diabetic kidney complication, without long-term current use of insulin (HCC) Expected: 02/09/2025 (Approximate), Expires: 05/11/2025 [facility] Work Phone: Comment on above: Expected: 02/09/2025 (Approximate), Expires: 05/11/2025 Start: 02-09-2025 End: 05-11-2025 Hemoglobin A1c in Blood HEMOGLOBIN A1C Lab Routine Type 2 diabetes mellitus with other diabetic kidney complication, without long-term current use of insulin (HCC) Expected: 02/09/2025 (Approximate), Expires: 05/11/2025 [facility] Comment on above: Expected: 02/09/2025 (Approximate), Expires: 05/11/2025 Start: 02-09-2025 End: 05-11-2025 Lipid 1996 panel - Serum or Plasma LIPID PANEL BASIC Lab Routine Hyperlipidemia, unspecified hyperlipidemia type Type 2 diabetes mellitus with other diabetic kidney complication, without long-term current use of insulin (HCC) Expected: 02/09/2025 (Approximate), Expires: 05/11/2025 [facility] Comment on above: Expected: 02/09/2025 (Approximate), Expires: 05/11/2025 Start: 02-09-2025 End: 05-11-2025 Thyrotropin [Units/volume] in Serum or Plasma THYROID STIMULATING HORMONE Lab Routine Hypothyroidism, unspecified type Expected: 02/09/2025 (Approximate), Expires: 05/11/2025 [facility] Comment on above: Expected: 02/09/2025 (Approximate), Expires: 05/11/2025 Start: 02-06-2025 End: 05-08-2025 Comprehensive metabolic 2000 panel - Serum or Plasma [facility] Comment on above: Expected: 02/06/2025 , Expires: 05/08/2025 Start: 02-06-2025 End: 05-08-2025 Hemoglobin A1c in Blood [facility] Comment on above: Expected: 02/06/2025 , Expires: 05/08/2025 Start: 02-06-2025 End: 05-08-2025 LIPID PANEL, NONFASTING [facility] Comment on above: Expected: 02/06/2025 , Expires: 05/08/2025 Start: 02-06-2025 End: 05-08-2025 Natriuretic peptide.B prohormone N-Terminal [Mass/volume] in Serum or Plasma [facility] Comment on above: Expected: 02/06/2025 , Expires: 05/08/2025 Start: 02-06-2025 End: 05-08-2025 Thyrotropin [Units/volume] in Serum or Plasma [facility] Work Phone: Comment on above: Expected: 02/06/2025 , Expires: 05/08/2025 Start: 02-06-2025 End: 05-08-2025 Urinalysis complete panel - Urine URINALYSIS (WITH MICROSCOPIC) WITH CULTURE IF INDICATED Lab Routine Generalized weakness Expected: 02/06/2025, Expires: 05/08/2025 [facility] Comment on above: Expected: 02/06/2025 , Expires: 05/08/2025 Start: 02-06-2025 End: 02-06-2025 Patient encounter procedure 02/06/2025 11:00 AM EDT Office Visit Family [facility] [address] [place], [place] [id number] Carlos House, RETURNS PROCESSOR.HOTEL SALES MANAGER [address] [place], [place] [phone] 6 month follow up Family [facility] Comment on above: 6 month follow up Start: 02-05-2025 Hemoglobin A1c measurement HbA1C [facility] Start: 10-29-2024 Covid-19 Vaccine () Covid-19 Vaccine () [facility] Comment on above: Postponed from 03/13 (Declined at this time) Start: 10-22-2024 Hepatitis B screening Urine Al bumin:Creatinine Ratio [facility] Start: 10-22-2024 Hepatitis B surface antibody level LDL Cholesterol [facility] Start: 09-08-2024 Glaucoma screening Dilated Retinal E xam [facility] Start: 08-05-2024 End: 08-05-2024 Patient encounter procedure 08/05/2024 12:40 PM EST Office Visit Family [facility] [address] [place] [phone] Carlos House, RETURNS PROCESSOR.HOTEL SALES MANAGER [address] [place], [place] [phone] 6 month follow up Family [facility] Comment on above: 6 month follow up Start: 08-03-2024 End: 11-02-2024 CBC panel - Blood by Automated count COMPLETE BLOOD COUNT Lab Routine Chronic diastolic CHF (congestive heart failure) (HCC) MGUS (monoclonal gammopathy of unknown significance) Iron deficiency anemia, unspecified iron deficiency anemia type Expected: 08/03/2024 (Approximate), Expires: 11/02/2024 [facility] Comment on above: Expected: 08/03/2024 (Approximate), Expires: 11/02/2024 Start: 08-03-2024 End: 11-02-2024 Comprehensive metabolic 2000 panel - Serum or Plasma COMPREHENSIVE METABOLIC PANEL Lab Routine Hyperlipidemia, unspecified hyperlipidemia type Type 2 diabetes mellitus with other diabetic kidney complication, without long-term current use of insulin ([facility]) Expected: 08/03/2024 (Approximate), Expires: 11/02/2024 [facility] Comment on above: Expected: 08/03/2024 (Approximate), Expires: 11/02/2024 Start: 08-03-2024 End: 11-02-2024 Hemoglobin A1c in Blood HEMOGLOBIN A1C Lab Routine Type 2 diabetes mellitus with other diabetic kidney complication, without long-term current use of insulin (HCC) Expected: 08/03/2024 (Approximate), Expires: 11/02/2024 [facility] Comment on above: Expected: 08/03/2024 (Approximate), Expires: 11/02/2024 Start: 08-03-2024 End: 11-02-2024 Lipid 1996 panel - Serum or Plasma LIPID PANEL BASIC Lab Routine Hyperlipidemia, unspecified hyperlipidemia type Expected: 08/03/2024 (Approximate), Expires: 11/02/2024 [facility] Work Phone: Comment on above: Expected: 08/03/2024 (Approximate), Expires: 11/02/2024 Start: 08-03-2024 End: 11-02-2024 Thyrotropin [Units/volume] in Serum or Plasma THYROID STIMULATING HORMONE Lab Routine Hypothyroidism, unspecified type Expected: 08/03/2024 (Approximate), Expires: 11/02/2024 [facility] Comment on above: Expected: 08/03/2024 (Approximate), Expires: 11/02/2024 Start: 07-29-2024 Hemoglobin A1c measurement HbA1C [facility] Start: 04-28-2024 Shingrix Vaccine (1 of 2) Jiménez grix Vaccine (1 of 2) [facility] Comment on above: Postponed from 05/20 (Declined at this time) Start: 04-23-2024 Hemoglobin A1c measurement HbA1C [facility] Start: 04-21-2024 Hepatitis B surface antibody level LDL Cholesterol [facility] Start: 04-18-2024 End: 04-18-2024 Patient encounter procedure Mobile PET CT Comment on above: MGUS (monoclonal janet mopathy of unknown significance) [D47.2]; Compression fracture of thoracic vertebra, unspecified thoracic vertebral level, initial encounter ([facility]) [S22.000A]; Lytic bone lesions on 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 for CHF [facility] [place] Comment on above: 03/29 follow up from [facility] for CHF Start: 04-01-2024 End: 04-01-2024 ambulatory 04/01/2024 8:40 AM EDT Visit (SP) Office Hematology/Oncology [address] [place] [address] Joshua Baker DO [address] [place] [address] OV* Hematology/Oncology Comment on above: OV* Start: 03-25-2024 End: 03-25-2024 ambulatory 03/25/2024 9:20 AM EDT Visit (SP) Office Hematology/Oncology [address], [place] [phone] Joshua Baker DO [address] [place] [id number] OV/CT 03/12* Hematology/Oncology Comment on above: OV/CT 03/12* Start: 03-13-2024 Covid-19 Vaccine ( season) Covid-19 Vaccine () [facility] Start: 03-13-2024 Covid-19 Vaccine () Covid-19 Vaccine () [facility] Start: 03-13-2024 Influenza vaccination Influenza Vacc ine (#1) [facility] Start: 03-12-2024 End: 03-12-2024 Patient encounter procedure 03/12/2024 3:30 PM EDT Appointment Radiology CT Scan [address] [facility] [address] [place], [place] [id number] MGUS (monoclonal gammopathy of unknown significance) [D47.2] Radiology CT Scan Comment on above: MGUS (monoclonal janet mopathy of unknown significance) [D47.2] Start: 02-26-2024 End: 02-26-2024 ambulatory 02/26/2024 11:00 AM EDT Visit (SP) Office Hematology/Oncology [address] [place] [address] Joshua Baker, [address] [place] [address] 2 MO OV/LABS 02/23* Hematology/Oncology Comment on above: 2 MO OV/LABS 02/23* Start: 02-24-2024 End: 02-24-2024 ambulatory 02/24/2024 11:00 AM EDT Results Only [place] [facility] [address] [place], [place] [phone] CBC/CMP/IRON STUDIES* [facility] Comment on above: CBC/CMP/IRON STUDIES * Start: 02-01-2024 End: 02-01-2024 Patient encounter procedure 02/01/2024 12:40 PM EDT [facility] [place] [address] [facility] [place] [address] Victor M Rocha MD [address] [place] [address] 3 month follow up [facility] [place] Comment on above: 3 month follow up Start: 01-29-2024 End: 04-29-2024 Basic metabolic 2000 panel - Serum or Plasma BASIC METABOLIC PANEL Lab Routine Type 2 diabetes mellitus with other diabetic kidney complication, without long-term current use of insulin (HCC) Expected: 01/29/2024 (Approximate), Expires: 04/29/2024 [facility] Work Phone: Comment on above: Expected: 01/29/2024 (Approximate), Expires: 04/29/2024 Start: 01-29-2024 End: 04-29-2024 CBC W Auto Differential panel - Blood COMPLETE BLOOD COUNT AND DIFFERENTIAL Lab Routine MGUS (monoclonal gammopathy of unknown significance) Iron deficiency anemia, unspecified iron deficiency anemia type Fatigue, unspecified type Generalized weakness SOB (shortness of breath) Expected: 01/29/2024 (Approximate), Expires: 04/29/2024 [facility] Work Phone: Comment on above: Expected: 01/29/2024 (Approximate), Expires: 04/29/2024 Start: 01-29-2024 End: 04-29-2024 Hemoglobin A1c in Blood HEMOGLOBIN A1C Lab Routine Type 2 diabetes mellitus with other diabetic kidney complication, without long-term current use of insulin (HCC) Expected: 01/29/2024 (Approximate), Expires: 04/29/2024 [facility] Work Phone: Comment on above: Expected: 01/29/2024 (Approximate), Expires: 04/29/2024 Start: 01-29-2024 End: 04-29-2024 Thyrotropin [Units/volume] in Serum or Plasma THYROID STIMULATING HORMONE Lab Routine Hypothyroidism, unspecified type Expected: 01/29/2024 (Approximate), Expires: 04/29/2024 [facility] Work Phone: Comment on above: Expected: 01/29/2024 (Approximate), Expires: 04/29/2024 Start: 12-24-2023 End: 12-24-2023 Patient encounter procedure 12/24/2023 3:40 PM EDT Office Visit Family N[facility]az[facility] [address] [place] [address] Victor M Rocha MD [address] [place] [address] Hospital follow up, [facility] 12/16/23 CHF Family [facility] Comment on above: Hospital follow up, [facility] 12/16/23 CHF Start: 12-14-2023 End: 12-14-2023 ambulatory [place] [facility] Laboratory Comment on above: CBC/RETIC/IRON STUDI ES* CBC/RETIC/IRON STUDI ES/IRON SUCROSE/D5-5/MDCR* Start: 12-11-2023 End: 12-11-2023 ambulatory 12/11/2023 2:30 PM EDT [facility] [address] [place] [address] IRON SUCROSE/D4-5/MDCR* Hematology/Oncology Comment on above: IRON SUCROSE/D4-5/MD CR* Start: 12-09-2023 End: 12-09-2023 ambulatory 12/09/2023 1:30 PM EDT [facility]Oncology [address] [place] [address] IRON SUCROSE/D3-5/MDCR* Hematology/Oncology Comment on above: IRON SUCROSE/D3-5/MD CR* Start: 12-02-2023 End: 12-02-2023 ambulatory 12/02/2023 2:00 PM EDT [facility] H[facility]ology[facility]Oncology [address] [place] [address] IRON SUCROSE/D2-5/MDCR* Hematology/Oncology Comment on above: IRON SUCROSE/D2-5/MD CR* Start: 11-26-2023 End: 11-26-2023 ambulatory 11/26/2023 3:30 PM EDT [facility] Hematology[facility]Oncology [address] [place] [address] START IRON SUCROSE/D1-5/MDCR* Hematology/Oncology Comment on above: START IRON SUCROSE/D 1-5/MDCR* Start: 11-17-2023 End: 02-16-2024 MONOCLONAL PROTEIN, SERUM (BLOOD) [facility] Comment on above: Expected: 11/17/2023 , Expires: 02/16/2024 Start: 11-17-2023 End: 02-16-2024 PROTEIN ELECTROPHORESIS SERUM W/INTERP [facility] Work Phone: Comment on above: Expected: 11/17/2023 , Expires: 02/16/2024 Start: 10-28-2023 End: 01-27-2024 ALBUMIN/CREAT RATIO RND UR ALBUMIN/CREAT RATIO RND UR Lab Routine Type 2 diabetes mellitus with other diabetic kidney complication, without long-term current use of insulin (HCC) Expected: 10/28/2023 (Approximate), Expires: 01/27/2024 [facility] Work Phone: Comment on above: Expected: 10/28/2023 (Approximate), Expires: 01/27/2024 Start: 10-28-2023 End: 01-27-2024 CBC W Auto Differential panel - Blood CBC + DIFF Lab Routine Iron deficiency anemia, unspecified iron deficiency anemia type Expected: 10/28/2023 (Approximate), Expires: 01/27/2024 [facility] Work Phone: Comment on above: Expected: 10/28/2023 (Approximate), Expires: 01/27/2024 Start: 10-28-2023 End: 01-27-2024 Comprehensive metabolic 2000 panel - Serum or Plasma COMP METABOLIC PANEL Lab Routine Essential hypertension, benign Hyperlipidemia, unspecified hyperlipidemia type Type 2 diabetes mellitus with other diabetic kidney complication, without long-term current use of insulin (HCC) Stage 3a chronic kidney disease (HCC) Expected: 10/28/2023 (Approximate), Expires: 01/27/2024 [facility] Work Phone: Comment on above: Expected: 10/28/2023 (Approximate), Expires: 01/27/2024 Start: 10-28-2023 End: 01-27-2024 Hemoglobin A1c in Blood HGB A1C Lab Routine Type 2 diabetes mellitus with other diabetic kidney complication, without long-term current use of insulin (HCC) Expected: 10/28/2023 (Approximate), Expires: 01/27/2024 [facility] Work Phone: Comment on above: Expected: 10/28/2023 (Approximate), Expires: 01/27/2024 Start: 10-28-2023 End: 01-27-2024 Lipid 1996 panel - Serum or Plasma LIPID PANEL BASIC Lab Routine Essential hypertension, benign Hyperlipidemia, unspecified hyperlipidemia type Type 2 diabetes mellitus with other diabetic kidney complication, without long-term current use of insulin (HCC) Expected: 10/28/2023 (Approximate), Expires: 01/27/2024 [facility] Work Phone: Comment on above: Expected: 10/28/2023 (Approximate), Expires: 01/27/2024 Start: 10-28-2023 End: 01-27-2024 Thyrotropin [Units/volume] in Serum or Plasma TSH BLD Lab Routine Hypothyroidism, unspecified type Expected: 10/28/2023 (Approximate), Expires: 01/27/2024 [facility] Work Phone: Comment on above: Expected: 10/28/2023 (Approximate), Expires: 01/27/2024 Start: 10-21-2023 Hemoglobin A1c measurement HbA1C [facility] Start: 10-21-2023 Hemoglobin A1c/Hemoglobin.total in Blood HbA1C [facility] Start: 10-18-2023 Hepatitis B surface antibody level LDL CHOLESTEROL [facility] Start: 09-09-2023 End: 11-09-2023 CBC W Auto Differential panel - Blood CBC + DIFF Lab Routine MGUS (monoclonal gammopathy of unknown significance) Expected: 09/09/2023, Expires: 11/09/2023 [facility] Work Phone: Comment on above: Expected: 09/09/2023 , Expires: 11/09/2023 Start: 09-09-2023 End: 11-09-2023 Comprehensive metabolic 2000 panel - Serum or Plasma COMP METABOLIC PANEL Lab Routine MGUS (monoclonal gammopathy of unknown significance) Expected: 09/09/2023, Expires: 11/09/2023 [facility] Work Phone: Comment on above: Expected: 09/09/2023 , Expires: 11/09/2023 Start: 09-09-2023 End: 11-09-2023 [place],FREE,SER [place]PA/[place],FREE,SER Lab Routine MGUS (monoclonal gammopathy of unknown significance) Expected: 09/09/2023, Expires: 11/09/2023 [facility] Work Phone: Comment on above: Expected: 09/09/2023 , Expires: 11/09/2023 Start: 09-09-2023 End: 11-09-2023 PROT, TOT AND PROT ELECTRO W/ IMMUNOFIX PROT, TOT AND PROT ELECTRO W/ IMMUNOFIX Lab Routine MGUS (monoclonal gammopathy of unknown significance) Expected: 09/09/2023, Expires: 11/09/2023 [facility] Work Phone: Comment on above: Expected: 09/09/2023 , Expires: 11/09/2023 Start: 07-13-2023 Advance Directive Discussion Advance Directive Discussion [facility] Start: 06-15-2023 End: 06-15-[address] [facility] Start: 05-15-2023 Glaucoma screening Dilated Retinal E xam [facility] Start: 05-15-2023 Hepatitis C antibody , confirmatory test DILATED RETINAL EXAM [facility] Start: 04-25-2023 End: 06-25-2023 CBC panel - Blood by Automated count CBC Lab Routine Essential hypertension, benign Iron deficiency anemia, unspecified iron deficiency anemia type Expected: 04/25/2023 (Approximate), Expires: 06/25/2023 [facility] Work Phone: Comment on above: Expected: 04/25/2023 (Approximate), Expires: 06/25/2023 Start: 04-25-2023 End: 06-25-2023 Comprehensive metabolic 2000 panel - Serum or Plasma COMP METABOLIC PANEL Lab Routine Hyperlipidemia, unspecified hyperlipidemia type Essential hypertension, benign Type 2 diabetes mellitus with other diabetic kidney complication, without long-term current use of insulin (HCC) Expected: 04/25/2023 (Approximate), Expires: 06/25/2023 [facility] Work Phone: Comment on above: Expected: 04/25/2023 (Approximate), Expires: 06/25/2023 Start: 04-25-2023 End: 06-25-2023 Hemoglobin A1c in Blood HGB A1C Lab Routine Type 2 diabetes mellitus with other diabetic kidney complication, without long-term current use of insulin (HCC) Expected: 04/25/2023 (Approximate), Expires: 06/25/2023 [facility] Work Phone: Comment on above: Expected: 04/25/2023 (Approximate), Expires: 06/25/2023 Start: 04-25-2023 End: 06-25-2023 Lipid 1996 panel - Serum or Plasma LIPID PANEL BASIC Lab Routine Hyperlipidemia, unspecified hyperlipidemia type Essential hypertension, benign Type 2 diabetes mellitus with other diabetic kidney complication, without long-term current use of insulin (HCC) Expected: 04/25/2023 (Approximate), Expires: 06/25/2023 [facility] Work Phone: Comment on above: Expected: 04/25/2023 (Approximate), Expires: 06/25/2023 Start: 04-25-2023 End: 06-25-2023 Thyrotropin [Units/volume] in Serum or Plasma TSH BLD Lab Routine Hypothyroidism, unspecified type Expected: 04/25/2023 (Approximate), Expires: 06/25/2023 [facility] Work Phone: Comment on above: Expected: 04/25/2023 (Approximate), Expires: 06/25/2023 Start: 04-17-2023 Hepatitis B surface antibody level LDL CHOLESTEROL [facility] Start: 03-13-2023 Covid-19 Vaccine () Covid-19 Vaccine () [facility] Start: 01-16-2023 Hemoglobin A1c/Hemoglobin.total in Blood HBA1C [facility] Start: 01-10-2023 Hepatitis B screening URINE AL BUMIN:CREATININE RATIO [facility] Start: 09-27-2022 Hepatitis B surface antibody level LDL CHOLESTEROL [facility] Start: 07-18-2022 Hemoglobin A1c/Hemoglobin.total in Blood HBA1C [facility] Start: 07-13-2022 ADVANCE DIRECTIVE DISCUSSION ADVANCE DIRECTIVE DISCUSSION [facility] Start: 05-17-2022 COVID-19 VACCINE (4 - Booster for Pfizer series) COVID-19 VACCINE (4 - Booster for Pfizer series) [facility] Start: 04-16-2022 End: 06-16-2022 Comprehensive metabolic 2000 panel - Serum or Plasma COMP METABOLIC PANEL Lab Routine Hyperlipidemia, unspecified hyperlipidemia type Coronary artery disease involving [place] coronary artery of [place] heart without angina pectoris Expected: 04/16/2022 (Approximate), Expires: 06/16/2022 [facility] Work Phone: Comment on above: Expected: 04/16/2022 (Approximate), Expires: 06/16/2022 Start: 04-16-2022 End: 06-16-2022 Hemoglobin A1c in Blood HGB A1C Lab Routine Type 2 diabetes mellitus with other diabetic kidney complication, without long-term current use of insulin (HCC) Expected: 04/16/2022 (Approximate), Expires: 06/16/2022 [facility] Work Phone: Comment on above: Expected: 04/16/2022 (Approximate), Expires: 06/16/2022 Start: 04-16-2022 End: 06-16-2022 Lipid 1996 panel - Serum or Plasma LIPID PANEL BASIC Lab Routine Hyperlipidemia, unspecified hyperlipidemia type Coronary artery disease involving [place] coronary artery of [place] heart without angina pectoris Expected: 04/16/2022 (Approximate), Expires: 06/16/2022 [facility] Work Phone: Comment on above: Expected: 04/16/2022 (Approximate), Expires: 06/16/2022 Start: 04-16-2022 End: 06-16-2022 Thyrotropin [Units/volume] in Serum or Plasma TSH BLD Lab Routine Hypothyroidism, unspecified type Expected: 04/16/2022 (Approximate), Expires: 06/16/2022 [facility] Work Phone: Comment on above: Expected: 04/16/2022 (Approximate), Expires: 06/16/2022 Start: 04-12-2022 Hemoglobin A1c/Hemoglobin.total in Blood HBA1C [facility] Start: 03-13-2022 Influenza vaccination INFLUENZA (#1) [facility] Start: 03-11-2022 COVID-19 VACCINE (4 - Booster for Pfizer series) COVID-19 VACCINE (4 - Booster for Pfizer series) [facility] Start: 01-10-2022 End: 03-12-2022 ALBUMIN/CREAT RATIO RND UR ALBUMIN/CREAT RATIO RND UR Lab Routine Type 2 diabetes mellitus with other diabetic kidney complication, without long-term current use of insulin (HCC) Expected: 01/10/2022 (Approximate), Expires: 03/12/2022 [facility] Work Phone: Comment on above: Expected: 01/10/2022 (Approximate), Expires: 03/12/2022 Start: 01-10-2022 End: 03-12-2022 Basic metabolic 2000 panel - Serum or Plasma BASIC METABOLIC PNL Lab Routine Type 2 diabetes mellitus with other diabetic kidney complication, without long-term current use of insulin (HCC) Expected: 01/10/2022 (Approximate), Expires: 03/12/2022 [facility] Work Phone: Comment on above: Expected: 01/10/2022 (Approximate), Expires: 03/12/2022 Start: 01-10-2022 End: 03-12-2022 Hemoglobin A1c/Hemoglobin.total in Blood HGB A1C Lab Routine Type 2 diabetes mellitus with other diabetic kidney complication, without long-term current use of insulin (HCC) Expected: 01/10/2022 (Approximate), Expires: 03/12/2022 [facility] Work Phone: Comment on above: Expected: 01/10/2022 (Approximate), Expires: 03/12/2022 Start: 12-28-2021 Hemoglobin A1c/Hemoglobin.total in Blood HBA1C [facility] Start: 10-22-2021 Hepatitis C antibody , confirmatory test DILATED RETINAL EXAM [facility] Start: 09-17-2021 3 comp foot exam completed DIABETIC FOOT EXAM [facility] Start: 09-17-2021 Diabetic foot examination Diabetic F oot Exam [facility] Start: 09-14-2021 Hepatitis B screening URINE AL BUMIN:CREATININE RATIO [facility] Start: 02-03-2021 COVID-19 VACCINE (3 - Booster for Pfizer series) COVID-19 VACCINE (3 - Booster for Pfizer series) [facility] Start: 10-04-2018 Urine microalbumin profile [facility] Start: 12-03-2017 End: 12-03-2017 Appointment Appointment [facility] Work Phone: Start: 06-26-2017 End: 06-26-2017 Appointment Appointment [facility] Work Phone: Start: 05-26-2017 End: 05-26-2017 CANTILEVER CRANE OPERATOR CANTILEVER CRANE OPERATOR [facility] Work Phone: Start: 05-26-2017 End: 05-26-2017 Follow Up Appt 6 months Follow Up Appt 6 months [facility] Work Phone: Start: 05-26-2017 End: 05-26-2017 Follow Up Appt Other Follow Up Appt Other [facility] Work Phone: Start: 03-20-2017 End: 05-14-2017 Follow Up Appt 3 months Follow Up Appt 3 months [facility] Work Phone: Start: 03-20-2017 End: 05-14-2017 Pacer Clinic Pacer [facility] Work Phone: Start: 12-11-2016 End: 05-14-2017 Follow Up Appt 3 months Follow Up Appt 3 months [facility] Work Phone: Start: 12-11-2016 End: 05-14-2017 Pacer [facility] Work Phone: Start: 11-21-2016 End: 05-14-2017 Follow Up Appt 6 months Follow Up Appt 6 months [facility] Work Phone: Start: 11-21-2016 End: 05-14-2017 MMM MMM [facility] Work Phone: Start: 09-03-2016 End: 05-14-2017 Follow Up Appt 3 months Follow Up Appt 3 months [facility] Work Phone: Start: 09-03-2016 End: 05-14-2017 Pacer Clinic Pacer Clinic [facility] Work Phone: Start: 08-18-2016 End: 05-26-2017 *Hepatic Function Panel *Hepatic Function Panel [facility] Work Phone: Start: 08-18-2016 End: 05-26-2017 Lipid panel [AGGREGATE] *Lipid Profile CC PCP [facility] Work Phone: Start: 05-23-2016 End: 08-07-2016 Follow Up Appt 3 months Follow Up Appt 3 months [facility] Work Phone: Start: 05-23-2016 End: 08-07-2016 Pacer Clinic Pacer Clinic [facility] Work Phone: Start: 05-15-2016 End: 05-15-2016 Follow Up Appt 6 months Follow Up Appt 6 months [facility] Work Phone: Start: 05-15-2016 End: 05-15-2016 MMM MMM [facility] Work Phone: Start: 04-22-2016 End: 08-07-2016 Follow Up Appt 1 month Follow Up Appt 1 month [facility] Work Phone: Start: 04-22-2016 End: 08-07-2016 Pacer Clinic Pacer [facility] Work Phone: Start: 04-03-2016 End: 04-04-2016 *BMP *BMP [facility] Work Phone: Start: 02-19-2016 End: 02-19-2016 Follow Up Appt 6 months Follow Up Appt 6 months [facility] Work Phone: Start: 02-19-2016 End: 02-19-2016 MMM MMM [facility] Work Phone: Start: 02-12-2016 End: 02-14-2016 *Hepatic Function Panel *Hepatic Function Panel [facility] Work Phone: Start: 02-12-2016 End: 02-14-2016 Lipid panel [AGGREGATE] *Lipid Profile CC PCP [facility] Work Phone: Start: 01-21-2016 End: 01-22-2016 CBC W Auto Differential panel - Blood *CBC without Diff [facility] Work Phone: Start: 01-21-2016 End: 02-14-2016 Follow Up Appt 3 months Follow Up Appt 3 months [facility] Work Phone: Start: 01-21-2016 End: 02-14-2016 Pacer Clinic Pacer Clinic [facility] Work Phone: Start: 01-02-2016 End: 02-14-2016 Follow Up Appt 3 months Follow Up Appt 3 months [facility] Work Phone: Start: 01-02-2016 End: 02-14-2016 Pacer Clinic Pacer Clinic [facility] Work Phone: Start: 11-10-2015 End: 11-12-2015 Thyroid stimulating hormone (TSH) *TSH [facility] Work Phone: Start: 11-10-2015 End: 11-12-2015 Thyroxine (T4) *T4 (Total) [facility] Work Phone: Start: 10-31-2015 End: 10-31-2015 Follow Up Appt 3 months Follow Up Appt 3 months [facility] Work Phone: Start: 10-31-2015 End: 10-31-2015 MMM MMM [facility] Work Phone: Start: 10-31-2015 End: 02-14-2016 Thyroid stimulating hormone (TSH) *TSH [facility] Work Phone: Start: 10-29-2015 End: 02-14-2016 Follow Up Appt 3 months Follow Up Appt 3 months [facility] Work Phone: Start: 10-29-2015 End: 02-14-2016 Pacer Clinic Pacer Clinic [facility] Work Phone: Start: 09-26-2015 End: 09-26-2015 *BMP *BMP [facility] Work Phone: Start: 09-26-2015 End: 09-26-2015 *CBC with Differential *CBC with Differential [facility] Work Phone: Start: 09-26-2015 End: 09-26-2015 BNP *Brain Natriuretic Peptide BNP [facility] Work Phone: Start: 09-26-2015 End: 02-14-2016 Chest x-ray X-Ray, Chest, PA & Lateral [facility] Work Phone: Start: 09-26-2015 End: 02-14-2016 Follow Up Appt 3 months Follow Up Appt 3 months [facility] Work Phone: Start: 09-26-2015 End: 09-26-2015 Follow Up Appt Other Follow Up Appt Other [facility] Work Phone: Start: 09-26-2015 End: 02-14-2016 Pacer Clinic Pacer Clinic [facility] Work Phone: Start: 09-25-2015 End: 09-25-2015 Thyroid stimulating hormone (TSH) *TSH [facility] Work Phone: Start: 09-25-2015 End: 09-25-2015 Thyroxine (T4) *T4 (Total) [facility] Work Phone: Start: 08-13-2015 End: 08-15-2015 *Hepatic Function Panel *Hepatic Function Panel [facility] Work Phone: Start: 08-13-2015 End: 08-15-2015 Lipid panel [AGGREGATE] *Lipid Profile CC PCP [facility] Work Phone: Start: 08-10-2015 End: 08-14-2015 *BMP *BMP [facility] Work Phone: Start: 08-10-2015 End: 08-14-2015 *Hepatic Function Panel *Hepatic Function Panel [facility] Work Phone: Start: 08-10-2015 End: 08-10-2015 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 CRANE OPERATOR CANTILEVER CRANE OPERATOR [facility] Work Phone: Start: 08-10-2015 End: 08-10-2015 Follow Up Appt 6 months Follow Up Appt 6 months [facility] Work Phone: Start: 08-10-2015 End: 08-14-2015 Lipid panel [AGGREGATE] *Lipid Profile CC PCP [facility] Work Phone: Start: 08-10-2015 End: 08-10-2015 Pulmonary Function Test - complete Pulmonary Function Test - complete [facility] Work Phone: Start: 08-10-2015 End: 08-14-2015 Thyroid stimulating hormone (TSH) *TSH [facility] Work Phone: Start: 08-10-2015 End: 08-14-2015 Thyroxine (T4) *T4 (Total) [facility] Work Phone: Start: 06-15-2015 End: 07-26-2015 Follow Up Appt 3 months Follow Up Appt 3 months [facility] Work Phone: Start: 06-15-2015 End: 07-26-2015 Pacer Clinic Pacer Clinic [facility] Work Phone: Start: 05-08-2015 End: 07-26-2015 Follow Up Appt 3 months Follow Up Appt 3 months [facility] Work Phone: Start: 05-08-2015 End: 07-26-2015 MMM MMM [facility] Work Phone: Start: 04-30-2015 End: 04-30-2015 Arterial exam Arterial exam [facility] Work Phone: Start: 04-30-2015 End: 07-26-2015 Follow Up Appt 1 month Follow Up Appt 1 month [facility] Work Phone: Start: 04-30-2015 End: 07-26-2015 Pacer Clinic Pacer Clinic [facility] Work Phone: Start: 04-30-2015 End: 04-30-2015 Venous doppler Venous doppler [facility] Work Phone: Start: 04-17-2015 End: 04-17-2015 CANTILEVER CRANE OPERATOR CANTILEVER CRANE OPERATOR [facility] Work Phone: Start: 04-17-2015 End: 04-17-2015 Follow Up Appt 1 month Follow Up Appt 1 month [facility] Work Phone: Start: 03-20-2015 End: 03-20-2015 *BMP *BMP [facility] Work Phone: Start: 03-20-2015 End: 03-20-2015 CANTILEVER CRANE OPERATOR CANTILEVER CRANE OPERATOR [facility] Work Phone: Start: 03-20-2015 End: 03-20-2015 Ecg routine ecg w/least 12 lds w/i&r EKG (In office) [facility] Work Phone: Start: 03-20-2015 End: 03-20-2015 Follow Up Appt 6 months Follow Up Appt 6 months [facility] Work Phone: Start: 03-20-2015 End: 03-20-2015 Magnesium *Magnesium [facility] Work Phone: Start: 03-20-2015 End: 03-20-2015 Thyroid stimulating hormone (TSH) *TSH [facility] Work Phone: Start: 11-17-2014 End: 02-13-2015 *CBC with Differential *CBC with Differential [facility] Work Phone: Start: 11-17-2014 End: 02-13-2015 *Hepatic Function Panel *Hepatic Function Panel [facility] Work Phone: Start: 11-17-2014 End: 11-17-2014 Follow Up Appt 4 months Follow Up Appt 4 months [facility] Work Phone: Start: 11-17-2014 End: 02-13-2015 Lipid panel [AGGREGATE] *Lipid Profile CC PCP [facility] Work Phone: Start: 11-17-2014 End: 11-17-2014 MMM MMM [facility] Work Phone: Start: 11-09-2014 End: 11-15-2014 *Hepatic Function Panel *Hepatic Function Panel [facility] Work Phone: Start: 11-09-2014 End: 11-09-2014 Follow Up Appt 6 months Follow Up Appt 6 months [facility] Work Phone: Start: 11-09-2014 End: 11-15-2014 Lipid panel [AGGREGATE] *Lipid Profile CC PCP [facility] Work Phone: Start: 11-09-2014 End: 11-09-2014 MMM MMM [facility] Work Phone: Start: 08-11-2014 End: 02-13-2015 *Hepatic Function Panel *Hepatic Function Panel [facility] Work Phone: Start: 08-11-2014 End: 02-13-2015 Lipid panel [AGGREGATE] *Lipid Profile CC PCP [facility] Work Phone: Start: 2014 RSV Vaccine (1 - 1-d ose 75+ series) RSV Vaccine (1 - 1-dose 75+ series) [facility] Start: 05-12-2014 End: 05-26-2014 *BMP *BMP [facility] Work Phone: Start: 04-26-2014 End: 04-26-2014 CANTILEVER CRANE OPERATOR CANTILEVER CRANE OPERATOR [facility] Work Phone: Start: 04-26-2014 End: 04-26-2014 Follow Up Appt 6 months Follow Up Appt 6 months [facility] Work Phone: Start: 04-12-2014 End: 04-11-2014 *Hepatic Function Panel *Hepatic Function Panel [facility] Work Phone: Start: 04-12-2014 End: 04-11-2014 Lipid panel [AGGREGATE] *Lipid Profile CC PCP [facility] Work Phone: Start: 01-09-2014 End: 01-09-2014 *Hepatic Function Panel *Hepatic Function Panel [facility] Work Phone: Start: 01-09-2014 End: 01-09-2014 Lipid panel [AGGREGATE] *Lipid Profile CC PCP [facility] Work Phone: Start: 10-25-2013 End: 10-25-2013 Follow Up Appt 6 months Follow Up Appt 6 months [facility] Work Phone: Start: 10-25-2013 End: 10-25-2013 MMM MMM [facility] Work Phone: Start: 09-29-2013 End: 09-29-2013 Follow Up Appt 6 months Follow Up Appt 6 months [facility] Work Phone: Start: 09-29-2013 End: 09-29-2013 MM MM [facility] Work Phone: Start: 07-18-2013 End: 07-29-2013 *Hepatic Function Panel *Hepatic Function Panel [facility] Work Phone: Start: 07-18-2013 End: 07-29-2013 Lipid panel [AGGREGATE] *Lipid Profile CC PCP [facility] Work Phone: Start: 07-11-2013 End: 07-11-2013 *Hepatic Function Panel *Hepatic Function Panel [facility] Work Phone: Start: 06-03-2013 End: 06-01-2013 *Hepatic Function Panel *Hepatic Function Panel [facility] Work Phone: Start: 03-25-2013 End: 05-04-2013 *Hepatic Function Panel *Hepatic Function Panel [facility] Work Phone: Start: 03-25-2013 End: 03-25-2013 CANTILEVER CRANE OPERATOR CANTILEVER CRANE OPERATOR [facility] Work Phone: Start: 03-25-2013 End: 03-25-2013 Follow Up Appt 6 months Follow Up Appt 6 months [facility] Work Phone: Start: 03-25-2013 End: 05-04-2013 Lipid panel [AGGREGATE] *Lipid Profile CC PCP [facility] Work Phone: Start: 03-21-2013 End: 03-21-2013 *Hepatic Function Panel *Hepatic Function Panel [facility] Work Phone: Start: 03-21-2013 End: 03-25-2013 Lipid panel [AGGREGATE] *Lipid Profile CC PCP [facility] Work Phone: Start: 12-13-2012 End: 12-13-2012 *Hepatic Function Panel *Hepatic Function Panel [facility] Work Phone: Start: 11-10-2012 End: 11-10-2012 *Hepatic Function Panel *Hepatic Function Panel [facility] Work Phone: Start: 11-10-2012 End: 11-10-2012 Lipid panel [AGGREGATE] *Lipid Profile [facility] Work Phone: Start: 09-07-2012 End: 09-07-2012 Follow Up Appt 6 months Follow Up Appt 6 months [facility] Work Phone: Start: 09-07-2012 End: 09-07-2012 MMM MMM [facility] Work Phone: Start: 08-19-2012 End: 08-30-2012 *Hepatic Function Panel *Hepatic Function Panel [facility] Work Phone: Start: 08-19-2012 End: 08-30-2012 Lipid panel [AGGREGATE] *Lipid Profile [facility] Work Phone: Start: 03-10-2012 End: 03-10-2012 24 hour holter monitor 24 hour holter monitor [facility] Work Phone: Start: 03-10-2012 End: 03-10-2012 Follow Up Appt 6 months Follow Up Appt 6 months [facility] Work Phone: Start: 03-10-2012 End: 03-10-2012 Nuclear stress test -exercise Nuclear stress test -exercise [facility] Work Phone: Start: 08-12-2011 End: 08-12-2011 Follow Up Appt 6 months Follow Up Appt 6 months [facility] Work Phone: Start: 10-30-2010 Screening for osteoporosis Bone Density Screening [facility] Start: 1999 Hepatitis B Vaccine (1 of 3 - Risk 3-dose series) Hepatitis B Vaccine (1 of 3 - Risk 3-dose series) [facility] Start: 1999 RSV Vaccine (1 - 1-d ose 60+ series) RSV Vaccine (1 - 1-dose 60+ series) [facility] Start: 1989 SHINGRIX VACCINE (1 of 2) JIMÉNEZ GRIX VACCINE (1 of 2) [facility] Start: 1957 Anxiety Screening Anxiety Screening [facility] Bacteria identified in Urine by Culture URINE CULTURE Microbiology Routine Urinary frequency 06/05/2023 3:52 PM EST [facility] Work Phone: Bacteria identified in Urine by Culture URINE CULTURE Microbiology Routine Urgency of urination Ordered: 01/15/2024 [facility] Work Phone: Comment on above: Ordered: 01/15/2024 End: 03-27-[address] WHOLE BODY SKULL TO KNEE WO IVCON Radiology Routine MGUS (monoclonal gammopathy of unknown significance) 1 Occurrences starting 02/26/2024 until 03/27/2025 [facility] Work Phone: Comment on above: 1 Occurrences starti ng 02/26/2024 until 03/27/[address] WHOLE BODY SK ULL TO KNEE WO IVCON Radiology Routine MGUS (monoclonal gammopathy of unknown significance) 03/12/2024 4:08 PM EDT [facility] Work Phone: ECG COMPLETE [facility] Comment on above: Ordered: 02/06/2025 Glucose [Mass/volume ] in Serum or Plasma GLUCOSE, BLOOD (POC) Lab Routine Glucosuria Ordered: 06/05/2023 [facility] Work Phone: Comment on above: Ordered: 06/05/2023 End: 05-01-2025 MR Skull base WO and W contrast IV MRI SKULL BASE WO/W IVCON Radiology Routine MGUS (monoclonal gammopathy of unknown significance) Compression fracture of thoracic vertebra, unspecified thoracic vertebral level, initial encounter (HCC) Lytic bone lesions on xray 1 Occurrences starting 04/01/2024 until 05/01/2025 [facility] Comment on above: 1 Occurrences starti ng 04/01/2024 until 05/01/2025 Patient Education [facility] Work Phone: Patient referral [facility] Work Phone: End: 05-01-2025 PET+CT Whole body Bone W 18F-NaF IV NM PET/CT WHOLE BODY INITIAL Radiology Routine MGUS (monoclonal gammopathy of unknown significance) Compression fracture of thoracic vertebra, unspecified thoracic vertebral level, initial encounter (HCC) Lytic bone lesions on xray 1 Occurrences starting 04/01/2024 until 05/01/2025 [facility] Work Phone: Comment on above: 1 Occurrences starti ng 04/01/2024 until 05/01/2025 [facility] End: 03-27-2025 XR Bones Complete Survey Views XR BONE SURVEY ROUTINE Radiology Routine MGUS (monoclonal gammopathy of unknown significance) 1 Occurrences starting 02/26/2024 until 03/27/2025 [facility] Comment on above: 1 Occurrences starti ng 02/26/2024 until 03/27/2025 XR Bones Complete [facility] Views XR BONE SURVEY ROUTINE Radiology Routine MGUS (monoclonal gammopathy of unknown significance) 02/26/2024 12:28 PM EDT [facility] Immunizations Immunization Date Immunization Notes Care Provider [facility] 03-26-2024 influenza, high dose seasonal, preservative-free Dr. Victor M Rocha MD Work Phone: [facility] 03-26-2024 influenza virus vacc ine, unspecified formulation Prema Sampson RN [facility] 04-28-2023 influenza (HD-IIV4) vaccine, age 65+ yr, high dose, quadrivalent, PF (FLUZONE HIGH-DOSE) Victor M Rocha MD Work Phone: [facility] 04-28-2023 influenza virus vacc ine, unspecified formulation Daniel Bucio MD Work Phone: [facility] 04-24-2022 influenza, high-dose , quadrivalent vaccine (FLUZONE HIGH DOSE QUADRIVALENT) Victor M Rocha MD Work Phone: [facility] 01-14-2022 COVID-19 vaccine, ag e 12+ yr (PFIZER-BIONTECH - BRIDGES TOP) Victor M Rocha MD Work Phone: [facility] 04-11-2021 influenza, high-dose , quadrivalent vaccine (FLUZONE HIGH DOSE QUADRIVALENT) Victor M Rocha MD Work Phone: [facility] 09-06-2020 COVID-19 vaccine, ag e 12+ yr (PFIZER-BIONTECH - PURPLE TOP) Victor M Rocha MD Work Phone: [facility] Work Phone: 08-16-2020 COVID-19 vaccine, ag e 12+ yr (PFIZER-BIONTECH - PURPLE TOP) Victor M Rocha MD Work Phone: [facility] Work Phone: 06-01-2020 influenza, high-dose , quadrivalent vaccine (FLUZONE HIGH DOSE QUADRIVALENT) Victor M Rocha MD Work Phone: [facility] Work Phone: 03-29-2019 influenza, high dose seasonal, preservative-free Victor M Rocha MD Work Phone: [facility] 05-28-2018 influenza, high dose seasonal, preservative-free Victor M Rocha MD Work Phone: [facility] Work Phone: 04-13-2017 influenza, high dose seasonal, preservative-free Victor M oRcha MD Work Phone: [facility] 03-26-2016 influenza, high dose seasonal, preservative-free Victor M Rocha MD Work Phone: [facility] 09-18-2015 pneumococcal conjuga te vaccine, 13 valent Victor M Rocha MD Work Phone: [facility] 03-29-2014 influenza, high dose seasonal, preservative-free Victor M Rocha MD Work Phone: [facility] Work Phone: 05-13-2013 influenza virus vacc ine, unspecified formulation Victor M Rocha MD Work Phone: [facility] Work Phone: 05-11-[address] Victor M Rocha Work Phone: [facility] 06-23-2012 influenza virus vacc ine, unspecified formulation Victor M Rocha MD Work Phone: [facility] 05-12-2011 influenza virus vacc ine, unspecified formulation Victor M Rocha MD Work Phone: [facility] Work Phone: 10-04-2008 pneumococcal polysaccharide vaccine, 23 valent Victor M Rocha MD Work Phone: [facility] 10-04-2008 tetanus toxoid, redu sharifa diphtheria toxoid, and acellular pertussis vaccine, adsorbed Victor M Rocha MD Work Phone: [facility] 08-18-2005 pneumococcal polysaccharide vaccine, 23 valent Victor M Rocha MD Work Phone: [facility] 08-18-[address] Xiomy Rocha Work Phone: [facility] Work Phone: 08-18-2005 pneumococcal vaccine , unspecified formulation Dr. Victor M Rocha Work Phone: [facility] Payers Date Payer Category Payer Self-pay [id number] 2004 Medicare MEDICARE MEDICAR E A AND B [id number] 2004-Present [phone] [address] [address] [place] [address] Medicare [id number] 2004 Medicare [id number] 2004 Medicare [id number] 2004 Blue Cross Blue Shield BLUE CARD TRADITIONAL OOS [id number] 2004 Unknown ANTHEM BLUE CARD TRADITIONAL OOS [id number] 2004-Present [phone] [place] [address] Indemnity [id number] 2004 Unknown ANTHEM BLUE CARD TRADITIONAL OOS [id number] 2004-Present [phone] [place] [address] Indemnity [id number] 2004 Unknown [id number] Unknown [id number] 2.840.1.855912.3.579. 2.462 Unknown [id number] 2.840.1.162416.3.579. 2.462 Unknown [id number] 2.840.1.876100.3.579. 2.462 Unknown [id number] 2.840.1.303969.3.579. 2.462 Unknown [id number] 2.16.840.1.978054.3.579. 2.462 Unknown [id number] 2.16.840.1.660231.3.579. 2.462 Unknown [id number] 2.16.840.1.066181.3.579. 2.462 Unknown [id number] 2.16.840.1.449967.3.579. 2.462 Unknown [id number] 2.16840.1.775143.3.579. 2.462 Unknown [id number] 2.16.840.1.038633.3.579. 2.462 Unknown [id number] 2.840.1.728752.3.579. 2.462 Unknown [id number] 2.840.1.930849.3.579. 2.462 Unknown [id number] 2.840.1.281941.3.579. 2.462 Unknown [id number] 2.840.1.985745.3.579. 2.462 Unknown [id number] 2.840.1.948298.3.579. 2.462 Unknown [id number] 2.840.1.748456.3.579. 2.462 Unknown [id number] 2.16840.1.015372.3.579. 2.462 Unknown [id number] 2.840.1.588475.3.579. 2.462 Unknown [id number] 2.16840.1.811680.3.579. 2.462 Unknown [id number] 2.16840.1.237060.3.579. 2.462 Unknown [id number] 2.16.840.1.529164.3.579. 2.462 Unknown [id number] 2.16.840.1.679103.3.579. 2.462 Unknown [id number] 2.16840.1.612224.3.579. 2.462 Unknown [id number] 2.16840.1.354358.3.579. 2.462 Unknown [id number] 2.16840.1.304892.3.579. 2.462 Unknown [id number] 2.16840.1.950842.3.579. 2.462 Unknown [id number] 2.840.1.798101.3.579. 2.462 Unknown [id number] 2.840.1.020659.3.579. 2.462 Unknown [id number] 2.840.1.442600.3.579. 2.462 Social History Date Type Detail Facility Start: 03-03-2017 End: 04-06-2024 Tobacco smoking status NHIS Ex-smoker [facility] Start: 07-13-1961 End: 07-13-1981 History of tobacco use Current smoker [facility] Start: 07-13-1961 End: 07-13-1981 History of tobacco use Cigarette Smoker [facility] Start: 10-11-2021 End: 02-06-2025 Alcohol intake Current non-drinker of alcohol (finding) [facility] Start: 03-03-2017 End: 04-24-2022 Tobacco Comment Pt smoked one pack every 3 days. [facility] Start: 1940 Sex Assigned At Not on file [facility] Start: 10-01-2021 End: 01-14-2022 Exposure to SARS-CoV-2 (event) Not sure [facility] Start: 01-24-2022 End: 06-15-2023 Tobacco smoking status [facility] Unknown if ever smoked [facility] Start: 12-19-2020 None [facility] Start: 12-19-2020 Homeless [facility] Start: 12-19-2020 Non-smoker [facility] Start: 1940 Sex Assigned At Female [facility] Start: 03-03-2017 End: 04-06-2024 Tobacco use and exposure Smokeless tobacco non-user [facility] Start: 12-11-2022 End: 04-28-2023 History of Social function [facility] Start: 12-11-2022 End: 04-28-2023 Tobacco use panel [facility] Adult Depression Screening Assessment 0 [facility] (I/We) worried alina er (my/our) food would run out before (I/we) got money to buy more. Never true [facility] Work Phone: How often to you hav e a drink containing alcohol? Never [facility] Has the [employer], [employer], or [employer] threatened to shut off services in your home in past 12Mo No [facility] Medical Equipment Procedure Code Equipment Code Equipment Origin al Text Equipment Identifier Dates [id number], [id number] Start: 03-08-2020 Comment on above: TEST BLOOD SUGAR ONC E DAILY Test blood sugar(s) 1 daily. Dx: Other DM Code E 11.29 Insulin: No Pacemaker- 5 [id number] Start: 04-27-2015 Comment on above: Description: PM-ABT [id number] Assurity RV Lead 8TC-58 [id number] RA Lead [id number] ([id number]) Dual-chamber implantable pacemaker, rate-responsive ()[id number] FDA Start: 04-11-2024 Functional Status Date Assessment Result Facility 10-03-2014 Are you deaf, or do you have serious difficulty hearing No 10/03/2014 9:44 AM Kandi Thompson MA No [facility] 10-03-2014 Are you blind, or do you have serious difficulty seeing, even when wearing glasses No 10/03/2014 9:44 AM Kandi Thompson MA No [facility] 10-03-2014 Do you have serious difficulty walking or climbing stairs No 10/03/2014 9:44 AM Kandi Thompson MA No [facility] 10-03-2014 Do you have difficul ty dressing or bathing No 10/03/2014 9:44 AM Kandi Thompson MA [facility] 10-03-2014 Because of a physica l, mental, or emotional condition, do you have difficulty doing errands alone such as visiting a physician's office or shopping No 10/03/2014 9:44 AM Kandi Thompson MA No [facility] Mental Status Date Assessment Result Facility 10-03-2014 Because of a physica l, mental, or emotional condition, do you have serious difficulty concentrating, remembering, or making decisions No 10/03/2014 9:44 AM EDT Kandi Woody MA No [facility] Clinical Notes 09-10-2010 to 02-06-2025 Telephone Encounter - Ingrid Torres RN - 02/06/2025 3:17 PM EDTTelephone Encounter - Ingrid Torres RN - 02/06/2025 3:17 PM Andree Martinez RT(R) - 02/06/2025 12:30 PM EDT Note Date & Type Note Facility 02-06-2025 Telephone encounter Note Pt called and is notified of providers results. Pt voices understanding. Ingrid Torres RN [facility] 02-06-2025 Miscellaneous Notes Pt called and is notified of providers results. Pt voices understanding. Ingrid Torres RN Tried to reach pt, VM full and unable to leave message or call back number. Kandi Woody MA Please let the patient know that her chest xray showed no pneumonia or fluid around heart or lungs. Carlos House APRN.DICK documented in this encounter [facility] 02-06-2025 Telephone encounter Note Tried to reach pt, VM full and unable to leave message or call back number. Kandi Woody MA [facility] 02-06-2025 Telephone encounter Note Please let the patient know that her chest xray showed no pneumonia or fluid around heart or lungs. Carlos House APRN.DICK [facility] 02-06-2025 History of Presen t illness Narrative Radiology Service Progress Note PATIENT NAME: Antonio Gupta DATE OF SERVICE: February 06, 2025 TIME: 12:43 PM PATIENT IDENTITY VERIFICATION COMPLETED USING TWO (2) IDENTIFIERS: Name and Date of confirmed by patient verbally. FALL SCREENING: Has the patient had 2 falls in the last year or 1 fall with injury or currently using an Ambulatory Assistive Device (Walker, Cane, Wheelchair, Crutches, etc.)? Yes, Patient High Risk for Falls What interventions were put in place to prevent falls during this visit? Instructed Patient to Call for Help if Needed, Offered Assistance with Transfers/Clothing, Instructed Patient to Remain Seated (Not on Exam Table) Until Exam, and Increased Observations by Caregivers PATIENT GENDER DATA: Assigned female at . status: : No status: NO. PATIENT RELEVANT IMPLANT DATA REVIEWED: Yes PATIENT PRESENTS WITH AN IMPLANTABLE OR ATTACHED FLOUR DISTRIBUTOR: No RADIOLOGY DEPARTMENT: General X-ray: Exam(s) Completed: Chest X-Ray PERIPHERAL IV DATA: Not applicable SIGNED BY: DORENE Donald) February 06, 2025 12:43 PM documented in this encounter [facility] 02-06-2025 Note HNO ID: [id number] Author: ANDREE CLARKE RT(R) Service: ? Author Type: Mortgage Funder Type: Progress Notes Filed: 02/06/2025 12:55 Note Text: Radiology Service Progress Note PATIENT NAME: Antonio Gupta DATE OF SERVICE: February 06, 2025 TIME: 12:43 PM PATIENT IDENTITY VERIFICATION COMPLETED USING TWO (2) IDENTIFIERS: Name and Date of confirmed by patient verbally. FALL SCREENING: Has the patient had 2 falls in the last year or 1 fall with injury or currently using an Ambulatory Assistive Device (Walker, Cane, Wheelchair, Crutches, etc.)? Yes, Patient High Risk for Falls What interventions were put in place to prevent falls during this visit? Instructed Patient to Call for Help if Needed, Offered Assistance with Transfers/Clothing, Instructed Patient to Remain Seated (Not on Exam Table) Until Exam, and Increased Observations by Caregivers PATIENT GENDER DATA: Assigned female at . status: : No status: NO. PATIENT RELEVANT IMPLANT DATA REVIEWED: Yes PATIENT PRESENTS WITH AN IMPLANTABLE OR ATTACHED FLOUR DISTRIBUTOR: No RADIOLOGY DEPARTMENT: General X-ray: Exam(s) Completed: Chest X-Ray PERIPHERAL IV DATA: Not applicable SIGNED BY: RT Odilon(R) February 06, 2025 12:43 PM [facility] 02-06-2025 Instructions Carlos House APRN.[facility] 02/06/2025 12:01 PM EDT We discussed your recent symptoms of fatigue, shortness of breath, and heart palpitations: - These symptoms have been present for about three weeks and are concerning. - I performed an EKG today, and we will review the results. - I ordered blood work to check for possible causes, including anemia or worsening heart failure. - A chest X-ray was ordered to evaluate for pneumonia or fluid in the lungs. - Please call your concrete block layer's office today to inform them of your symptoms and schedule a follow-up visit. If they cannot see you soon, they may advise you to go to the emergency room. - If your symptoms worsen, including increased shortness of breath, chest pain, or severe fatigue, go to the emergency room immediately. We discussed your history of urinary tract infections and cloudy urine: - You were unable to provide a urine sample today, so I ordered a urine test to be completed at the lab. - Untreated urinary tract infections can lead to serious complications, including sepsis. If you develop fever, chills, or worsening symptoms, go to the emergency room immediately. We discussed your weight: - Your weight has increased slightly since July (from 189 lbs to 194 lbs). This could be related to fluid retention. - Continue wearing your compression stockings daily to help manage any leg swelling. Next steps: - Complete the blood work, chest X-ray, and urine test as soon as possible. - Call your concrete block layer today to report your symptoms and schedule a follow-up. - If you experience worsening symptoms, go to the emergency room immediately. Please take these symptoms seriously and do not delay seeking care in the future. Call our office or your concrete block layer promptly if similar issues arise. documented in this encounter [facility] 02-06-2025 History of Presen t illness Narrative Chief Complaint Patient presents with: 6 Month Exam: Weakness and no energy HPI Antonio Gupta is a 84 year old female who presents here today for above reason. Antonio Gupta is a 84-year-old female with a history of CHF, anemia, and a pacemaker, presenting for a routine follow-up and evaluation of new-onset fatigue, dyspnea, and palpitations. Antonio reports a 3-week history of significant fatigue, describing it as no energy to move my body and difficulty putting one foot in front of the other. This is a new symptom for her. She also notes new-onset dyspnea, describing it as panting even when sitting down, which coincided with the onset of fatigue. Additionally, she reports experiencing palpitations, describing her heart as beating faster than usual, also starting around the same time. No chest pain. She is currently using a walker for mobility and is in a wheelchair today. She denies fevers or chills. She has not reported these symptoms to her concrete block layer, Dr. Bueno, or his vet assistant, whom she usually sees. She has a pacemaker and had an echocardiogram approximately 2 years ago. She was hospitalized 3-4 months ago for what she believes was CHF, but she is unsure of the exact diagnosis. She states that she was discharged with oxygen but returned it without telling cardiology. Antonio also mentions cloudy urine and suspects a UTI, but has not sought medical attention for it. She has noticed a slight increase in weight, from 189 lbs in July to 194 lbs today, but denies significant fluctuations. She wears compression stockings daily and does not report any new leg swelling. Past medical history, appointments, medications, allergies reviewed. EXAM: BP 138/78 Pulse 80 Resp 16 Wt 88 kg (194 lb) SpO2 94% BMI 31.31 kg/m General Appearance: Well appearing, alert, in no acute distress, well-hydrated, well nourished. and Obese. Position in a wheelchair. Neck: Supple, no adenopathy; thyroid symmetric Lungs: Lungs clear to auscultation. No wheezing, rhonchi, rales.. Heart: RRR without murmur, gallop, or rubs. No ectopy. Extremities: trace edema around the ankles. Assessment and Plan 1. Chronic diastolic CHF (congestive heart failure) (HCC) (I50.32) DELONG (dyspnea on exertion) (R06.09) Recent onset of dyspnea and palpitations over the past 3 weeks. History of CHF with a pacemaker in situ. Last echocardiogram was 2 years ago. No recent follow-up with cardiology regarding these symptoms. - Ordered chest X-ray to evaluate for pulmonary edema or other causes of dyspnea. - Ordered EKG to assess cardiac rhythm. - EKG in office today shows paced rhythm, 80 bpm; wide QRS, non-speficic intraventricular block - Advised patient to contact concrete block layer Dr. Bueno's office today to report symptoms and schedule an urgent follow-up. - Educated patient on the importance of timely reporting of symptoms to prevent complications. - Discussed if she were to get chest pain or worsening shortness of breath, that she needs to go to ER immediately. She and verbalized understanding. 2. Generalized weakness (R53.1) New onset of significant weakness over the past 3 weeks, coinciding with dyspnea. Differential includes anemia, infection, or worsening CHF. - Ordered CBC to evaluate for anemia. - Ordered urinalysis to rule out UTI. - Advised patient to monitor symptoms and seek immediate medical attention if worsening. 3. Hypothyroidism, unspecified type (E03.9) - Check TSH, continue current dose of Levothyroxine 4. Hyperlipidemia, unspecified hyperlipidemia type (E78.5) - To be determined, continue simvastatin 5. Essential hypertension, benign (I10) - Controlled today, continue with current medication 6. Type 2 diabetes mellitus with other diabetic kidney complication, without long-term current use of insulin (HCC) (E11.29) - To be determined, continue with current medications as prescribed. 7. Stage 3a chronic kidney disease (HCC) (N18.31) - Check CMP today, continue with Losartan Carlos House APRN.CNP RTO in 1 month. I spent a total of 51 minutes on the date of the service which included preparing to see the patient, [id number] patient care, completing clinical documentation, obtaining and/or reviewing separately obtained history, performing a medically appropriate examination, counseling and educating the patient/family/caregiver, and ordering medications, tests, or procedures. This note was partly generated using [employer] voice recognition dictation and may contain some misspelled or inaccurate words missed on review. Recording using [employer] software for draft documentation of the visit was discussed with the patient/authorized labor union business representative; all questions welcomed and answered. Patient/authorized labor union business representative agreed to proceed documented in this encounter [facility] 02-06-2025 Note HNO ID: [id number] Author: CARLOS HOUSE APRN.CNP Service: ? Author Type: Nurse Practitioner Type: Progress Notes Filed: 02/06/2025 12:13 Note Text: Chief Complaint Patient presents with: 6 Month Exam: Weakness and no energy HPI Antonio Gupta is a 84 year old female who presents here today for above reason. Antonio Gupta is a 84-year-old female with a history of CHF, anemia, and a pacemaker, presenting for a routine follow-up and evaluation of new-onset fatigue, dyspnea, and palpitations. Antonio reports a 3-week history of significant fatigue, describing it as no energy to move my body and difficulty putting one foot in front of the other. This is a new symptom for her. She also notes new-onset dyspnea, describing it as panting even when sitting down, which coincided with the onset of fatigue. Additionally, she reports experiencing palpitations, describing her heart as beating faster than usual, also starting around the same time. No chest pain. She is currently using a walker for mobility and is in a wheelchair today. She denies fevers or chills. She has not reported these symptoms to her concrete block layer, Dr. Bueno, or his vet assistant, whom she usually sees. She has a pacemaker and had an echocardiogram approximately 2 years ago. She was hospitalized 3-4 months ago for what she believes was CHF, but she is unsure of the exact diagnosis. She states that she was discharged with oxygen but returned it without telling cardiology. Antonio also mentions cloudy urine and suspects a UTI, but has not sought medical attention for it. She has noticed a slight increase in weight, from 189 lbs in July to 194 lbs today, but denies significant fluctuations. She wears compression stockings daily and does not report any new leg swelling. Past medical history, appointments, medications, allergies reviewed. EXAM: BP 138/78 Pulse 80 Resp 16 Wt 88 kg (194 lb) SpO2 94% BMI 31.31 kg/m? General Appearance: Well appearing, alert, in no acute distress, well-hydrated, well nourished. and Obese. Position in a wheelchair. Neck: Supple, no adenopathy; thyroid symmetric Lungs: Lungs clear to auscultation. No wheezing, rhonchi, rales.. Heart: RRR without murmur, gallop, or rubs. No ectopy. Extremities: trace edema around the ankles. Assessment and Plan 1. Chronic diastolic CHF (congestive heart failure) (HCC) (I50.32) DELONG (dyspnea on exertion) (R06.09) Recent onset of dyspnea and palpitations over the past 3 weeks. History of CHF with a pacemaker in situ. Last echocardiogram was 2 years ago. No recent follow-up with cardiology regarding these symptoms. - Ordered chest X-ray to evaluate for pulmonary edema or other causes of dyspnea. - Ordered EKG to assess cardiac rhythm. - EKG in office today shows paced rhythm, 80 bpm; wide QRS, non-speficic intraventricular block - Advised patient to contact concrete block layer Dr. Bueno's office today to report symptoms and schedule an urgent follow-up. - Educated patient on the importance of timely reporting of symptoms to prevent complications. - Discussed if she were to get chest pain or worsening shortness of breath, that she needs to go to ER immediately. She and verbalized understanding. 2. Generalized weakness (R53.1) New onset of significant weakness over the past 3 weeks, coinciding with dyspnea. Differential includes anemia, infection, or worsening CHF. - Ordered CBC to evaluate for anemia. - Ordered urinalysis to rule out UTI. - Advised patient to monitor symptoms and seek immediate medical attention if worsening. 3. Hypothyroidism, unspecified type (E03.9) - Check TSH, continue current dose of Levothyroxine 4. Hyperlipidemia, unspecified hyperlipidemia type (E78.5) - To be determined, continue simvastatin 5. Essential hypertension, benign (I10) - Controlled today, continue with current medication 6. Type 2 diabetes mellitus with other diabetic kidney complication, without long-term current use of insulin (HCC) (E11.29) - To be determined, continue with current medications as prescribed. 7. Stage 3a chronic kidney disease (HCC) (N18.31) - Check CMP today, continue with Losartan Carlos House APRN.HOTEL SALES MANAGER RTO in 1 month. I spent a total of 51 minutes on the date of the service which included preparing to see the patient, [id number] patient care, completing clinical documentation, obtaining and/or reviewing separately obtained history, performing a medically appropriate examination, counseling and educating the patient/family/caregiver, and ordering medications, tests, or procedures. This note was partly generated using [employer] voice recognition dictation and may contain some misspelled or inaccurate words missed on review. Recording using Right[employer] software for draft documentation of the visit was discussed with the patient/authorized labor union business representative; all questions welcomed and answered. Patient/authorize (more content not included)... [facility] 02-02-2025 Note HNO ID: [id number] Author: PREMA SAMPSON RN Service: ? Author Type: Registered Nurse Type: Progress Notes Filed: 02/02/2025 14:50 Note Text: CDM Care Path Telephonic Outreach Provider Action/FYI None Patient identified by Name and Date of . Discussed care with patient. Logistics Manager call note: Health topics discussed today: -Understanding diabetes -Understanding HgbA1c -Signs/symptoms of hypoglycemia and treatment options -Explanation of the Plate Method of diet -Sugary foods to avoid and added sugar and drinks -Understanding diabetic medications -Importance of medication compliance -Recommended routine care for eyes/feet/teeth/kidneys Patient does not check BG at home Recent A1C was 6.5 Patient had a good understanding of good dietary choices Last Eye exam: 08/18/24 Patient does not see podiatry - clips her nails, but she will consider podiatry Patient does not regularly see dentist due to having dentures - she was encouraged to discuss at upcoming appt with Primary Care what they would recommend as far as oral routine care for diabetes with her dentist All CDM health topics have been reviewed with patient She is aware that today will be last CDM outreach call She was reminded of [facility] telephone number for any future needs/symptoms Program Details Chronic Disease Management Status: Enrolled Effective Dates: 09/13/2024 - present Responsible Staff: Prema Sampson RN Support and Services: Hypertension, Diabetes, Chronic Kidney Disease (CKD), Congestive Heart Failure (CHF) Program Goals Targets Target Due Completed Completed By Outcome Comprehensive Diabetes education provided 12/14/2024 02/02/2025 Prema Sampson RN Complete 02/02/25 Discussed what diabetes is, the importance of blood sugar monitoring/medication compliance, recommended routine care for eyes/feet/teeth/kidneys discussed, and reviewed patient's diabetes medications - The following handouts were reviewed: Monitoring Your Diabetes, Problem Solving High Glucose and Low Glucose, What does my A1C mean?, Nutrition Basics for People with Diabetes - Your Plate, Sugary Foods to Avoid, Living with Diabetes Annual Nephrology visit addressed 12/14/2024 01/12/2025 Prema Sampson RN Complete/Scheduled PCP manages kidney care per patient Comprehensive CKD education provided 12/14/2024 01/12/2025 Prema Sampson RN Complete 01/12/25 Signs/symptoms to report were reviewed - The following were discussed during call: Chronic Kidney Disease, Renal Diet Basics, Potassium and Kidney Disease (does not apply to patient as she typically has low potassium and is on prescribed potassium supplement) , and CKD Zones Comprehensive HTN education provided 12/14/2024 12/29/2024 Prema Sampson RN Complete 12/29/24 Goal of BP <130/80 reviewed, Discussed types of antihypertensives, the importance of medication compliance, and signs/symptoms to report- Reviewed information from the following handouts: What is High Blood Pressure?, High Blood Pressure: When to Seek Emergency Care and High Blood Pressure: Talking to Your Medical Provider, Your Sodium Controlled Diet, High Blood Pressure and Nutrition Comprehensive CHF education provided 12/14/2024 10/28/2024 Prema Sampson RN Complete Discussed monitoring weight regularly and reporting changes, and signs/symptoms to report - The following were handouts were reviewed: Understanding Heart Failure, Sodium and Heart Failure, Heart Failure: Exercise and Activity, and Heart Failure Zones General education provided (managing stress, where to go/how to contact, etc.) 10/14/2024 10/07/2024 Prema Sampson RN Complete Reviewed how to contact Primary Care via phone - [facility] phone number also reviewed , Where to Go for Care reviewed, Stress Management and Emotional Health reviewed Intake assessments completed: ADLs, Fall Risk, SDOH 10/14/2024 09/13/2024 Prema Sampson RN Complete Annual Medicare Wellness visit addressed 12/14/2024 09/13/2024 Prema Sampson RN Complete/Scheduled Completed 08/12/24 Biannual Cardiology visit addressed 12/14/2024 09/13/2024 Prema Sampson RN Complete/Scheduled Patient sees Cardiology outside of [facility] - office notes in scanned documents from 05/09/24, 02/20/24, 12/25/23 Biannual PCP visit addressed 12/14/2024 09/13/2024 Prema Sampson RN Complete/Scheduled Recent appts 04/06/24, 02/01/24 - Next appt 02/06/25 CKD lab care gaps addressed 12/14/2024 09/13/2024 Prema Sampson RN Complete/Scheduled Diabetes lab care gaps addressed 12/14/2024 09/13/2024 Prema Sampson RN Complete/Scheduled HTN lab care gaps addressed 12/14/2024 09/13/2024 Prema Sampson RN Complete/Scheduled Patient-stated goal addressed (add comment) 12/14/2024 09/13/2024 Prema Sampson RN Complete To remain free of falls by using her walker Assessments CDM Assessment Medications: Do you have any questions about taking your medications or which medications you should be taking? (more content not included)... [facility] 02-02-2025 History of Presen t illness Narrative Images from the original note were not included. CDM Care Path Telephonic Outreach Provider Action/FYI None Patient identified by Name and Date of . Discussed care with patient. Logistics Manager call note: Health topics discussed today: -Understanding diabetes -Understanding HgbA1c -Signs/symptoms of hypoglycemia and treatment options -Explanation of the Plate Method of diet -Sugary foods to avoid and added sugar and drinks -Understanding diabetic medications -Importance of medication compliance -Recommended routine care for eyes/feet/teeth/kidneys Patient does not check BG at home Recent A1C was 6.5 Patient had a good understanding of good dietary choices Last Eye exam: 08/18/24 Patient does not see podiatry - clips her nails, but she will consider podiatry Patient does not regularly see dentist due to having dentures - she was encouraged to discuss at upcoming appt with Primary Care what they would recommend as far as oral routine care for diabetes with her dentist All CDM health topics have been reviewed with patient She is aware that today will be last CDM outreach call She was reminded of [facility] telephone number for any future needs/symptoms Program Details Chronic Disease Management Status: Enrolled Effective Dates: 09/13/2024 - present Responsible Staff: Prema Sampson RN Support and Services: Hypertension, Diabetes, Chronic Kidney Disease (CKD), Congestive Heart Failure (CHF) Program Goals Targets Target Due Completed Completed By Outcome Comprehensive Diabetes education provided 12/14/2024 02/02/2025 Prema Sampson RN Complete 02/02/25 Discussed what diabetes is, the importance of blood sugar monitoring/medication compliance, recommended routine care for eyes/feet/teeth/kidneys discussed, and reviewed patient's diabetes medications - The following handouts were reviewed: Monitoring Your Diabetes, Problem Solving High Glucose and Low Glucose, What does my A1C mean?, Nutrition Basics for People with Diabetes - Your Plate, Sugary Foods to Avoid, Living with Diabetes Annual Nephrology visit addressed 12/14/2024 01/12/2025 Prema Sampson RN Complete/Scheduled PCP manages kidney care per patient Comprehensive CKD education provided 12/14/2024 01/12/2025 Prema Sampson RN Complete 01/12/25 Signs/symptoms to report were reviewed - The following were discussed during call: Chronic Kidney Disease, Renal Diet Basics, Potassium and Kidney Disease (does not apply to patient as she typically has low potassium and is on prescribed potassium supplement) , and CKD Zones Comprehensive HTN education provided 12/14/2024 12/29/2024 Prema Sampson RN Complete 12/29/24 Goal of BP <130/80 reviewed, Discussed types of antihypertensives, the importance of medication compliance, and signs/symptoms to report- Reviewed information from the following handouts: What is High Blood Pressure?, High Blood Pressure: When to Seek Emergency Care and High Blood Pressure: Talking to Your Medical Provider, Your Sodium Controlled Diet, High Blood Pressure and Nutrition Comprehensive CHF education provided 12/14/2024 10/28/2024 Prema Sampson RN Complete Discussed monitoring weight regularly and reporting changes, and signs/symptoms to report - The following were handouts were reviewed: Understanding Heart Failure, Sodium and Heart Failure, Heart Failure: Exercise and Activity, and Heart Failure Zones General education provided (managing stress, where to go/how to contact, etc.) 10/14/2024 10/07/2024 NIYA Bryan Reviewed how to contact Primary Care via phone - [facility] phone number also reviewed , Where to Go for Care reviewed, Stress Management and Emotional Health reviewed Intake assessments completed: ADLs, Fall Risk, SDOH 10/14/2024 09/13/2024 Prema Sampson RN Complete Annual Medicare Wellness visit addressed 12/14/2024 09/13/2024 Prema Sampson RN Complete/Scheduled Completed 08/12/24 Biannual Cardiology visit addressed 12/14/2024 09/13/2024 Prema Sampson RN Complete/Scheduled Patient sees Cardiology outside of [facility] - office notes in scanned documents from 05/09/24, 02/20/24, 12/25/23 Biannual PCP visit addressed 12/14/2024 09/13/2024 Prema Sampson RN Complete/Scheduled Recent appts 04/06/24, 02/01/24 - Next appt 02/06/25 CKD lab care gaps addressed 12/14/2024 09/13/2024 Prema Sampson RN Complete/Scheduled Diabetes lab care gaps addressed 12/14/2024 09/13/2024 Prema Sampson RN Complete/Scheduled HTN lab care gaps addressed 12/14/2024 09/13/2024 Prema Sampson RN Complete/Scheduled Patient-stated goal addressed (add comment) 12/14/2024 09/13/2024 Prema Sampson RN Complete To remain free of falls by using her walker Assessments CDM Assessment Medications: Do you have any questions about taking your medications or which medications you should be taking?: No Do you need any medication refills at this time, including any of the medication you might take only when needed?: No Social: It can be normal to feel anxious or down during a time like this. Would you like to talk to a mental health professional about how you have been feeling?: (did not discuss) Symptoms: Are you experiencing any new or worsening symptoms that you need to talk about today?: No ADLs No documentation this encounter Fall Risk No documentation this encounter SDOH No documentation this encounter Interventions The following were addressed during this visit: - Comprehensive Diabetes education provided - Month 1: Provide Diabetes Education: How to: Blood Sugar Monitoring - Month 1: Provide Diabetes Education: Importance of Blood Sugar Monitoring - Month 1: Provide Diabetes Education: Signs and Symptoms of Low Blood Sugar - Month 1: Provide Diabetes Education: How to Manage Blood Sugar - Month 2: Provide Diabetes Education: Diet Modification: Plate Method - Month 2: Provide Diabetes Education: Diet Modification: Added Sugars in Drinks - Bi-Weekly Outreach (Recurring) Disposition Based on school bus aide, the following disposition is advised: No action needed Prema Sampson RN February 02, 2025 2:47 PM documented in this encounter [facility] 02-02-2025 Note Patient Outreach ([facility]) ANTONIO GUPTA ([id number]) 1940 F Date Time Provider Department 02/02/25 PREMA SAMPSON During your visit today, we recorded the following information about you: Prema Sampson RN 02/02/2025 2:50 PM Signed CDM Care Path Telephonic Outreach Provider Action/FYI None Patient identified by Name and Date of . Discussed care with patient. Logistics Manager call note: Health topics discussed today: -Understanding diabetes -Understanding HgbA1c -Signs/symptoms of hypoglycemia and treatment options -Explanation of the Plate Method of diet -Sugary foods to avoid and added sugar and drinks -Understanding diabetic medications -Importance of medication compliance -Recommended routine care for eyes/feet/teeth/kidneys Patient does not check BG at home Recent A1C was 6.5 Patient had a good understanding of good dietary choices Last Eye exam: 08/18/24 Patient does not see podiatry - clips her nails, but she will consider podiatry Patient does not regularly see dentist due to having dentures - she was encouraged to discuss at upcoming appt with Primary Care what they would recommend as far as oral routine care for diabetes with her dentist All CDM health topics have been reviewed with patient She is aware that today will be last CDM outreach call She was reminded of [facility] telephone number for any future needs/symptoms Program Details Chronic Disease Management Status: Enrolled Effective Dates: 09/13/2024 - present Responsible Staff: Prema Sampson RN Support and Services: Hypertension, Diabetes, Chronic Kidney Disease (CKD), Congestive Heart Failure (CHF) Program Goals Targets Target Due Completed Completed By Outcome Comprehensive Diabetes education provided 12/14/2024 02/02/2025 Prema Sampson RN Complete 02/02/25 Discussed what diabetes is, the importance of blood sugar monitoring/medication compliance, recommended routine care for eyes/feet/teeth/kidneys discussed, and reviewed patient's diabetes medications - The following handouts were reviewed: Monitoring Your Diabetes, Problem Solving High Glucose and Low Glucose, What does my A1C mean?, Nutrition Basics for People with Diabetes - Your Plate, Sugary Foods to Avoid, Living with Diabetes Annual Nephrology visit addressed 12/14/2024 01/12/2025 Prema Sampson RN Complete/Scheduled PCP manages kidney care per patient Comprehensive CKD education provided 12/14/2024 01/12/2025 Prema Sampson RN Complete 01/12/25 Signs/symptoms to report were reviewed - The following were discussed during call: Chronic Kidney Disease, Renal Diet Basics, Potassium and Kidney Disease (does not apply to patient as she typically has low potassium and is on prescribed potassium supplement) , and CKD Zones Comprehensive HTN education provided 12/14/2024 12/29/2024 Prema Sampson RN Complete 12/29/24 Goal of BP <130/80 reviewed, Discussed types of antihypertensives, the importance of medication compliance, and signs/symptoms to report- Reviewed information from the following handouts: What is High Blood Pressure?, High Blood Pressure: When to Seek Emergency Care and High Blood Pressure: Talking to Your Medical Provider, Your Sodium Controlled Diet, High Blood Pressure and Nutrition Comprehensive CHF education provided 12/14/2024 10/28/2024 NIYA Bryan Discussed monitoring weight regularly and reporting changes, and signs/symptoms to report - The following were handouts were reviewed: Understanding Heart Failure, Sodium and Heart Failure, Heart Failure: Exercise and Activity, and Heart Failure Zones General education provided (managing stress, where to go/how to contact, etc.) 10/14/2024 10/07/2024 NIYA Bryan Reviewed how to contact Primary Care via phone - [facility] phone number also reviewed , Where to Go for Care reviewed, Stress Management and Emotional Health reviewed Intake assessments completed: ADLs, Fall Risk, SDOH 10/14/2024 09/13/2024 Prema Sampson RN Complete Annual Medicare Wellness visit addressed 12/14/2024 09/13/2024 Prema Sampson RN Complete/Scheduled Completed 08/12/24 Biannual Cardiology visit addressed 12/14/2024 09/13/2024 Prema Sampson RN Complete/Scheduled Patient sees Cardiology outside of [facility] - office notes in scanned documents from 05/09/24, 02/20/24, 12/25/23 Biannual PCP visit addressed 12/14/2024 09/13/2024 Prema Sampson RN Complete/Scheduled Recent appts 04/06/24, 02/01/24 - Next appt 02/06/25 CKD lab care gaps addressed 12/14/2024 09/13/2024 Prema Sampson RN Complete/Scheduled Diabetes lab care gaps addressed 12/14/2024 09/13/2024 Prema Sampson RN Complete/Scheduled HTN lab care gaps addressed 12/14/2024 09/13/2024 Prema Sampson RN Complete/Scheduled Patient-stated goal addressed (add comment) 12/14/2024 09/13/2024 Prema Sampson RN Complete To remain f (more content not included)... [facility] 01-12-2025 Note HNO ID: [id number] Author: PREMA SAMPSON RN Service: ? Author Type: Registered Nurse Type: Progress Notes Filed: 01/12/2025 13:59 Note Text: CDM Care Path Telephonic Outreach Provider Action/FYI None Patient identified by Name and Date of . Discussed care with patient. Logistics Manager call note: Health topics discussed today: - Understanding kidney disease - CKD zones sent via takokathart - Renal diet basics - Signs and symptoms to report Patient does not have a Parachute Folder - PCP manages kidney care per patient Patient denies any concerns/symptoms that require physician attention at this time Program Details Chronic Disease Management Status: Enrolled Effective Dates: 09/13/2024 - present Responsible Staff: Prema Sampson RN Support and Services: Hypertension, Diabetes, Chronic Kidney Disease (CKD), Congestive Heart Failure (CHF) Program Goals Targets Target Due Completed Completed By Outcome Comprehensive Diabetes education provided 12/14/2024 -- -- -- Annual Nephrology visit addressed 12/14/2024 01/12/2025 Prema Sampson RN Complete/Scheduled PCP manages kidney care per patient Comprehensive CKD education provided 12/14/2024 01/12/2025 Prema Sampson RN Complete 01/12/25 Signs/symptoms to report were reviewed - The following were discussed during call: Chronic Kidney Disease, Renal Diet Basics, Potassium and Kidney Disease, and CKD Zones Comprehensive HTN education provided 12/14/2024 12/29/2024 Prema Sampson RN Complete 12/29/24 Goal of BP <130/80 reviewed, Discussed types of antihypertensives, the importance of medication compliance, and signs/symptoms to report- Reviewed information from the following handouts: What is High Blood Pressure?, High Blood Pressure: When to Seek Emergency Care and High Blood Pressure: Talking to Your Medical Provider, Your Sodium Controlled Diet, High Blood Pressure and Nutrition Comprehensive CHF education provided 12/14/2024 10/28/2024 Prema Sampson RN Complete Discussed monitoring weight regularly and reporting changes, and signs/symptoms to report - The following were handouts were reviewed: Understanding Heart Failure, Sodium and Heart Failure, Heart Failure: Exercise and Activity, and Heart Failure Zones General education provided (managing stress, where to go/how to contact, etc.) 10/14/2024 10/07/2024 Prema Sampson RN Complete Reviewed how to contact Primary Care via phone - [facility] phone number also reviewed , Where to Go for Care reviewed, Stress Management and Emotional Health reviewed Intake assessments completed: ADLs, Fall Risk, SDOH 10/14/2024 09/13/2024 Prema Sampson RN Complete Annual Medicare Wellness visit addressed 12/14/2024 09/13/2024 Prema Sampson RN Complete/Scheduled Completed 08/12/24 Biannual Cardiology visit addressed 12/14/2024 09/13/2024 Prema Sampson RN Complete/Scheduled Patient sees Cardiology outside of [facility] - office notes in scanned documents from 05/09/24, 02/20/24, 12/25/23 Biannual PCP visit addressed 12/14/2024 09/13/2024 Prema Sampson RN Complete/Scheduled Recent appts 04/06/24, 02/01/24 - Next appt 02/06/25 CKD lab care gaps addressed 12/14/2024 09/13/2024 Prema Sampson RN Complete/Scheduled Diabetes lab care gaps addressed 12/14/2024 09/13/2024 Prema Sampson RN Complete/Scheduled HTN lab care gaps addressed 12/14/2024 09/13/2024 Prema Sampson RN Complete/Scheduled Patient-stated goal addressed (add comment) 12/14/2024 09/13/2024 Prema Sampson RN Complete To remain free of falls by using her walker Assessments CDM Assessment Medications: Do you have any questions about taking your medications or which medications you should be taking?: No Do you need any medication refills at this time, including any of the medication you might take only when needed?: No Social: It can be normal to feel anxious or down during a time like this. Would you like to talk to a mental health professional about how you have been feeling?: (did not discuss today) Symptoms: Are you experiencing any new or worsening symptoms that you need to talk about today?: No ADLs No documentation this encounter Fall Risk No documentation this encounter SDOH No documentation this encounter Interventions The following were addressed during this visit: - Comprehensive CKD education provided - Annual Nephrology visit addressed - Month 1: Provide CKD Education: CKD Zones - Month 1: Provide CKD Education: About CKD - Month 2: Provide CKD Education: Renal Diet Basics - Month 3: Schedule Annual Nephrology Appointment - Month 2: Provide CKD Education: Controlling Potassium Disposition Based on school bus aide, the following disposition is advised: No action needed Prema Sampson RN January 12, 2025 1:57 PM [facility] 01-12-2025 History of Presen t illness Narrative Images from the original note were not included. [facility] Care Path Telephonic Outreach Provider Action/FYI None Patient identified by Name and Date of . Discussed care with patient. Logistics Manager call note: Health topics discussed today: - Understanding kidney disease - CKD zones sent via [employer] - Renal diet basics - Signs and symptoms to report Patient does not have a Parachute Folder - PCP manages kidney care per patient Patient denies any concerns/symptoms that require physician attention at this time Program Details Chronic Disease Management Status: Enrolled Effective Dates: 09/13/2024 - present Responsible Staff: Prema Sampson RN Support and Services: Hypertension, Diabetes, Chronic Kidney Disease (CKD), Congestive Heart Failure (CHF) Program Goals Targets Target Due Completed Completed By Outcome Comprehensive Diabetes education provided 12/14/2024 -- -- -- Annual Nephrology visit addressed 12/14/2024 01/12/2025 Prema Sampson RN Complete/Scheduled PCP manages kidney care per patient Comprehensive CKD education provided 12/14/2024 01/12/2025 Prema Sampson RN Complete 01/12/25 Signs/symptoms to report were reviewed - The following were discussed during call: Chronic Kidney Disease, Renal Diet Basics, Potassium and Kidney Disease, and CKD Zones Comprehensive HTN education provided 12/14/2024 12/29/2024 Prema Sampson RN Complete 12/29/24 Goal of BP <130/80 reviewed, Discussed types of antihypertensives, the importance of medication compliance, and signs/symptoms to report- Reviewed information from the following handouts: What is High Blood Pressure?, High Blood Pressure: When to Seek Emergency Care and High Blood Pressure: Talking to Your Medical Provider, Your Sodium Controlled Diet, High Blood Pressure and Nutrition Comprehensive CHF education provided 12/14/2024 10/28/2024 Prema Sampson RN Complete Discussed monitoring weight regularly and reporting changes, and signs/symptoms to report - The following were handouts were reviewed: Understanding Heart Failure, Sodium and Heart Failure, Heart Failure: Exercise and Activity, and Heart Failure Zones General education provided (managing stress, where to go/how to contact, etc.) 10/14/2024 10/07/2024 Prema Sampson RN Complete Reviewed how to contact Primary Care via phone - Healthy at Home phone number also reviewed , Where to Go for Care reviewed, Stress Management and Emotional Health reviewed Intake assessments completed: ADLs, Fall Risk, SDOH 10/14/2024 09/13/2024 Prema Sampson RN Complete Annual Medicare Wellness visit addressed 12/14/2024 09/13/2024 Prema Sampson RN Complete/Scheduled Completed 08/12/24 Biannual Cardiology visit addressed 12/14/2024 09/13/2024 Prema Sampson RN Complete/Scheduled Patient sees Cardiology outside of [facility] - office notes in scanned documents from 05/09/24, 02/20/24, 12/25/23 Biannual PCP visit addressed 12/14/2024 09/13/2024 Prema Sampson RN Complete/Scheduled Recent appts 04/06/24, 02/01/24 - Next appt 02/06/25 CKD lab care gaps addressed 12/14/2024 09/13/2024 Prema Sampson RN Complete/Scheduled Diabetes lab care gaps addressed 12/14/2024 09/13/2024 Prema Sampson RN Complete/Scheduled HTN lab care gaps addressed 12/14/2024 09/13/2024 Prema Sampson RN Complete/Scheduled Patient-stated goal addressed (add comment) 12/14/2024 09/13/2024 Prema Sampson RN Complete To remain free of falls by using her walker Assessments CDM Assessment Medications: Do you have any questions about taking your medications or which medications you should be taking?: No Do you need any medication refills at this time, including any of the medication you might take only when needed?: No Social: It can be normal to feel anxious or down during a time like this. Would you like to talk to a mental health professional about how you have been feeling?: (did not discuss today) Symptoms: Are you experiencing any new or worsening symptoms that you need to talk about today?: No ADLs No documentation this encounter Fall Risk No documentation this encounter SDOH No documentation this encounter Interventions The following were addressed during this visit: - Comprehensive CKD education provided - Annual Nephrology visit addressed - Month 1: Provide CKD Education: CKD Zones - Month 1: Provide CKD Education: About CKD - Month 2: Provide CKD Education: Renal Diet Basics - Month 3: Schedule Annual Nephrology Appointment - Month 2: Provide CKD Education: Controlling Potassium Disposition Based on school bus aide, the following disposition is advised: No action needed Prema Sampson RN January 12, 2025 1:57 PM documented in this encounter [facility] 01-12-2025 [place] [facility] [place] ANTONIO GUPTA ([id number]) 1940 F Date Time Provider [facility] [place] visit today, we recorded the following information about you: Prema Sampson RN 01/12/2025 1:59 PM Signed CDM Care Path Telephonic Outreach Provider Action/FYI None Patient identified by Name and Date of . Discussed care with patient. Logistics Manager call note: Health topics discussed today: - Understanding kidney disease - CKD zones sent via [employer] - Renal diet basics - Signs and symptoms to report Patient does not have a Parachute Folder - PCP manages kidney care per patient Patient denies any concerns/symptoms that require physician attention at this time Program Details Chronic Disease Management Status: Enrolled Effective Dates: 09/13/2024 - present Responsible Staff: Prema Sampson RN Support and Services: Hypertension, Diabetes, Chronic Kidney Disease (CKD), Congestive Heart Failure (CHF) Program Goals Targets Target Due Completed Completed By Outcome Comprehensive Diabetes education provided 12/14/2024 -- -- -- Annual Nephrology visit addressed 12/14/2024 01/12/2025 Prema Sampson RN Complete/Scheduled PCP manages kidney care per patient Comprehensive CKD education provided 12/14/2024 01/12/2025 Prema Sampson RN Complete 01/12/25 Signs/symptoms to report were reviewed - The following were discussed during call: Chronic Kidney Disease, Renal Diet Basics, Potassium and Kidney Disease, and CKD Zones Comprehensive HTN education provided 12/14/2024 12/29/2024 NIYA Bryan 12/29/24 Goal of BP <130/80 reviewed, Discussed types of antihypertensives, the importance of medication compliance, and signs/symptoms to report- Reviewed information from the following handouts: What is High Blood Pressure?, High Blood Pressure: When to Seek Emergency Care and High Blood Pressure: Talking to Your Medical Provider, Your Sodium Controlled Diet, High Blood Pressure and Nutrition Comprehensive CHF education provided 12/14/2024 10/28/2024 Prema Sampson RN Complete Discussed monitoring weight regularly and reporting changes, and signs/symptoms to report - The following were handouts were reviewed: Understanding Heart Failure, Sodium and Heart Failure, Heart Failure: Exercise and Activity, and Heart Failure Zones General education provided (managing stress, where to go/how to contact, etc.) 10/14/2024 10/07/2024 Prema Sampson RN Complete Reviewed how to contact Primary Care via phone - Healthy at Home phone number also reviewed , Where to Go for Care reviewed, Stress Management and Emotional Health reviewed Intake assessments completed: ADLs, Fall Risk, SDOH 10/14/2024 09/13/2024 Prema Sampson RN Complete Annual Medicare Wellness visit addressed 12/14/2024 09/13/2024 Prema Sampson RN Complete/Scheduled Completed 08/12/24 Biannual Cardiology visit addressed 12/14/2024 09/13/2024 Prema Sampson RN Complete/Scheduled Patient sees Cardiology outside of [facility] - office notes in scanned documents from 05/09/24, 02/20/24, 12/25/23 Biannual PCP visit addressed 12/14/2024 09/13/2024 Prema Sampson RN Complete/Scheduled Recent appts 04/06/24, 02/01/24 - Next appt 02/06/25 CKD lab care gaps addressed 12/14/2024 09/13/2024 Prema Sampson RN Complete/Scheduled Diabetes lab care gaps addressed 12/14/2024 09/13/2024 Prema Sampson RN Complete/Scheduled HTN lab care gaps addressed 12/14/2024 09/13/2024 Prema Sampson RN Complete/Scheduled Patient-stated goal addressed (add comment) 12/14/2024 09/13/2024 Prema Sampson RN Complete To remain free of falls by using her walker Assessments CDM Assessment Medications: Do you have any questions about taking your medications or which medications you should be taking?: No Do you need any medication refills at this time, including any of the medication you might take only when needed?: No Social: It can be normal to feel anxious or down during a time like this. Would you like to talk to a mental health professional about how you have been feeling?: (did not discuss today) Symptoms: Are you experiencing any new or worsening symptoms that you need to talk about today?: No ADLs No documentation this encounter Fall Risk No documentation this encounter SDOH No documentation this encounter Interventions The following were addressed during this visit: - Comprehensive CKD education provided - Annual Nephrology visit addressed - Month 1: Provide CKD Education: CKD Zones - Month 1: Provide CKD Education: About CKD - Month 2: Provide CKD Education: Renal Diet Basics - Month 3: Schedule Annual Nephrology Appointment - Month 2: Provide CKD Education: Controlling Potassium Disposition Based on school bus aide, the following disposition is advised: No action needed Prema Sampson RN January 12, 2025 1:57 PM Allergies As of Date: (more content not included)... [facility] 12-29-2024 Note HNO ID: [id number] Author: PREMA SAMPSON RN Service: ? Author Type: Registered Nurse Type: Progress Notes Filed: 12/29/2024 14:26 Note Text: [facility] Care Path Telephonic Outreach Provider Action/FYI None Patient identified by Name and Date of . Discussed care with patient. Logistics Manager call note: Health topics discussed today: - Goal BP reviewed - Understanding blood pressure - Talking to your doctor and when to go to the ER - Blood pressure and nutrition/Ways to lower salt in the diet - Types of antihypertensives - Importance of medication compliance Patient does not check blood pressure at home Blood pressure medications are managed by her [employer] outside of [facility] Patient denies any concerns/symptoms that require physician attention at this time Program Details Chronic Disease Management Status: Enrolled Effective Dates: 09/13/2024 - present Responsible Staff: Prema Sampson RN Support and Services: Hypertension, Diabetes, Chronic Kidney Disease (CKD), Congestive Heart Failure (CHF) Program Goals Targets Target Due Completed Completed By Outcome Annual Nephrology visit addressed 12/14/2024 -- -- -- Comprehensive CKD education provided 12/14/2024 -- -- -- Comprehensive Diabetes education provided 12/14/2024 -- -- -- Comprehensive HTN education provided 12/14/2024 12/29/2024 Prema Sampson RN Complete 12/29/24 Goal of BP <130/80 reviewed, Discussed types of antihypertensives, the importance of medication compliance, and signs/symptoms to report- Reviewed information from the following handouts: What is High Blood Pressure?, High Blood Pressure: When to Seek Emergency Care and High Blood Pressure: Talking to Your Medical Provider, Your Sodium Controlled Diet, High Blood Pressure and Nutrition Comprehensive CHF education provided 12/14/2024 10/28/2024 Prema Sampson RN Complete Discussed monitoring weight regularly and reporting changes, and signs/symptoms to report - The following were handouts were reviewed: Understanding Heart Failure, Sodium and Heart Failure, Heart Failure: Exercise and Activity, and Heart Failure Zones General education provided (managing stress, where to go/how to contact, etc.) 10/14/2024 10/07/2024 Prema Sampson RN Complete Reviewed how to contact Primary Care via phone - Healthy at Home phone number also reviewed , Where to Go for Care reviewed, Stress Management and Emotional Health reviewed Intake assessments completed: ADLs, Fall Risk, SDOH 10/14/2024 09/13/2024 Prema Sampson RN Complete Annual Medicare Wellness visit addressed 12/14/2024 09/13/2024 Prema Sapmson RN Complete/Scheduled Completed 08/12/24 Biannual Cardiology visit addressed 12/14/2024 09/13/2024 Prema Sampson RN Complete/Scheduled Patient sees Cardiology outside of [facility] - office notes in scanned documents from 05/09/24, 02/20/24, 12/25/23 Biannual PCP visit addressed 12/14/2024 09/13/2024 Prema Sampson RN Complete/Scheduled Recent appts 04/06/24, 02/01/24 - Next appt 02/06/25 CKD lab care gaps addressed 12/14/2024 09/13/2024 Prema Sampson RN Complete/Scheduled Diabetes lab care gaps addressed 12/14/2024 09/13/2024 Prema Sampson RN Complete/Scheduled HTN lab care gaps addressed 12/14/2024 09/13/2024 Prema Sampson RN Complete/Scheduled Patient-stated goal addressed (add comment) 12/14/2024 09/13/2024 Prema Sampson RN Complete To remain free of falls by using her walker Assessments CDM Assessment Medications: Do you have any questions about taking your medications or which medications you should be taking?: No Do you need any medication refills at this time, including any of the medication you might take only when needed?: No Social: It can be normal to feel anxious or down during a time like this. Would you like to talk to a mental health professional about how you have been feeling?: (did not discuss today) Symptoms: Are you experiencing any new or worsening symptoms that you need to talk about today?: No ADLs No documentation this encounter Fall Risk No documentation this encounter SDOH No documentation this encounter Interventions The following were addressed during this visit: - Comprehensive HTN education provided - Month 1: Review Individual Blood Pressure Target (If established by provider) - Month 1: Provide HTN Education: What is High Blood Pressure - Month 2: Provide HTN Education: Sodium Controlled Diets - Month 2: Provide HTN Education: High Blood Pressure AND Nutrition Disposition Based on school bus aide, the following disposition is advised: No action needed Prema Sampson RN December 29, 2024 2:25 PM [facility] 12-29-2024 History of Presen t illness Narrative Images from the original note were not included. [facility] Care Path Telephonic Outreach Provider Action/FYI None Patient identified by Name and Date of . Discussed care with patient. Logistics Manager call note: Health topics discussed today: - Goal BP reviewed - Understanding blood pressure - Talking to your doctor and when to go to the ER - Blood pressure and nutrition/Ways to lower salt in the diet - Types of antihypertensives - Importance of medication compliance Patient does not check blood pressure at home Blood pressure medications are managed by her [employer] outside of [facility] Patient denies any concerns/symptoms that require physician attention at this time Program Details Chronic Disease Management Status: Enrolled Effective Dates: 09/13/2024 - present Responsible Staff: Prema Sampson RN Support and Services: Hypertension, Diabetes, Chronic Kidney Disease (CKD), Congestive Heart Failure (CHF) Program Goals Targets Target Due Completed Completed By Outcome Annual Nephrology visit addressed 12/14/2024 -- -- -- Comprehensive CKD education provided 12/14/2024 -- -- -- Comprehensive Diabetes education provided 12/14/2024 -- -- -- Comprehensive HTN education provided 12/14/2024 12/29/2024 Prema Sampson RN Complete 12/29/24 Goal of BP <130/80 reviewed, Discussed types of antihypertensives, the importance of medication compliance, and signs/symptoms to report- Reviewed information from the following handouts: What is High Blood Pressure?, High Blood Pressure: When to Seek Emergency Care and High Blood Pressure: Talking to Your Medical Provider, Your Sodium Controlled Diet, High Blood Pressure and Nutrition Comprehensive CHF education provided 12/14/2024 10/28/2024 Prema Sampson RN Complete Discussed monitoring weight regularly and reporting changes, and signs/symptoms to report - The following were handouts were reviewed: Understanding Heart Failure, Sodium and Heart Failure, Heart Failure: Exercise and Activity, and Heart Failure Zones General education provided (managing stress, where to go/how to contact, etc.) 10/14/2024 10/07/2024 Prema Sampson RN Complete Reviewed how to contact Primary Care via phone - Healthy at Home phone number also reviewed , Where to Go for Care reviewed, Stress Management and Emotional Health reviewed Intake assessments completed: ADLs, Fall Risk, SDOH 10/14/2024 09/13/2024 Prema Sampson RN Complete Annual Medicare Wellness visit addressed 12/14/2024 09/13/2024 Prema Sampson RN Complete/Scheduled Completed 08/12/24 Biannual Cardiology visit addressed 12/14/2024 09/13/2024 Prema Sampson RN Complete/Scheduled Patient sees Cardiology outside of [facility] - office notes in scanned documents from 05/09/24, 02/20/24, 12/25/23 Biannual PCP visit addressed 12/14/2024 09/13/2024 Prema Sampson RN Complete/Scheduled Recent appts 04/06/24, 02/01/24 - Next appt 02/06/25 CKD lab care gaps addressed 12/14/2024 09/13/2024 Prema Sampson RN Complete/Scheduled Diabetes lab care gaps addressed 12/14/2024 09/13/2024 Prema Sampson RN Complete/Scheduled HTN lab care gaps addressed 12/14/2024 09/13/2024 Prema Sampson RN Complete/Scheduled Patient-stated goal addressed (add comment) 12/14/2024 09/13/2024 Prema Sampson RN Complete To remain free of falls by using her walker Assessments CDM Assessment Medications: Do you have any questions about taking your medications or which medications you should be taking?: No Do you need any medication refills at this time, including any of the medication you might take only when needed?: No Social: It can be normal to feel anxious or down during a time like this. Would you like to talk to a mental health professional about how you have been feeling?: (did not discuss today) Symptoms: Are you experiencing any new or worsening symptoms that you need to talk about today?: No ADLs No documentation this encounter Fall Risk No documentation this encounter SDOH No documentation this encounter Interventions The following were addressed during this visit: - Comprehensive HTN education provided - Month 1: Review Individual Blood Pressure Target (If established by provider) - Month 1: Provide HTN Education: What is High Blood Pressure - Month 2: Provide HTN Education: Sodium Controlled Diets - Month 2: Provide HTN Education: High Blood Pressure & Nutrition Disposition Based on school bus aide, the following disposition is advised: No action needed Prema Sampson RN December 29, 2024 2:25 PM documented in this encounter [facility] 12-29-2024 [place] [facility] [place] ANTONIO GUPTA ([id number]) 1940 F Date Time Provider Department 12/29/24 PREMA SAMPSON During your visit today, we recorded the following information about you: Prema Sampson RN 12/29/2024 2:26 PM Signed CDM Care Path Telephonic Outreach Provider Action/FYI None Patient identified by Name and Date of . Discussed care with patient. Logistics Manager call note: Health topics discussed today: - Goal BP reviewed - Understanding blood pressure - Talking to your doctor and when to go to the ER - Blood pressure and nutrition/Ways to lower salt in the diet - Types of antihypertensives - Importance of medication compliance Patient does not check blood pressure at home Blood pressure medications are managed by her [employer] outside of [facility] Patient denies any concerns/symptoms that require physician attention at this time Program Details Chronic Disease Management Status: Enrolled Effective Dates: 09/13/2024 - present Responsible Staff: Prema Sampson RN Support and Services: Hypertension, Diabetes, Chronic Kidney Disease (CKD), Congestive Heart Failure (CHF) Program Goals Targets Target Due Completed Completed By Outcome Annual Nephrology visit addressed 12/14/2024 -- -- -- Comprehensive CKD education provided 12/14/2024 -- -- -- Comprehensive Diabetes education provided 12/14/2024 -- -- -- Comprehensive HTN education provided 12/14/2024 12/29/2024 Prema Sampson RN Complete 12/29/24 Goal of BP <130/80 reviewed, Discussed types of antihypertensives, the importance of medication compliance, and signs/symptoms to report- Reviewed information from the following handouts: What is High Blood Pressure?, High Blood Pressure: When to Seek Emergency Care and High Blood Pressure: Talking to Your Medical Provider, Your Sodium Controlled Diet, High Blood Pressure and Nutrition Comprehensive CHF education provided 12/14/2024 10/28/2024 Prema Sampson RN Complete Discussed monitoring weight regularly and reporting changes, and signs/symptoms to report - The following were handouts were reviewed: Understanding Heart Failure, Sodium and Heart Failure, Heart Failure: Exercise and Activity, and Heart Failure Zones General education provided (managing stress, where to go/how to contact, etc.) 10/14/2024 10/07/2024 Prema Sampson RN Complete Reviewed how to contact Primary Care via phone - Healthy at Home phone number also reviewed , Where to Go for Care reviewed, Stress Management and Emotional Health reviewed Intake assessments completed: ADLs, Fall Risk, SDOH 10/14/2024 09/13/2024 Prema Sampson RN Complete Annual Medicare Wellness visit addressed 12/14/2024 09/13/2024 Prema Sampson RN Complete/Scheduled Completed 08/12/24 Biannual Cardiology visit addressed 12/14/2024 09/13/2024 Prema Sampson RN Complete/Scheduled Patient sees Cardiology outside of [facility] - office notes in scanned documents from 05/09/24, 02/20/24, 12/25/23 Biannual PCP visit addressed 12/14/2024 09/13/2024 Prema Sampson RN Complete/Scheduled Recent appts 04/06/24, 02/01/24 - Next appt 02/06/25 CKD lab care gaps addressed 12/14/2024 09/13/2024 Prema Sampson RN Complete/Scheduled Diabetes lab care gaps addressed 12/14/2024 09/13/2024 Prema Sampson RN Complete/Scheduled HTN lab care gaps addressed 12/14/2024 09/13/2024 Prema Sampson RN Complete/Scheduled Patient-stated goal addressed (add comment) 12/14/2024 09/13/2024 Prema Sampson RN Complete To remain free of falls by using her walker Assessments CDM Assessment Medications: Do you have any questions about taking your medications or which medications you should be taking?: No Do you need any medication refills at this time, including any of the medication you might take only when needed?: No Social: It can be normal to feel anxious or down during a time like this. Would you like to talk to a mental health professional about how you have been feeling?: (did not discuss today) Symptoms: Are you experiencing any new or worsening symptoms that you need to talk about today?: No ADLs No documentation this encounter Fall Risk No documentation this encounter SDOH No documentation this encounter Interventions The following were addressed during this visit: - Comprehensive HTN education provided - Month 1: Review Individual Blood Pressure Target (If established by provider) - Month 1: Provide HTN Education: What is High Blood Pressure - Month 2: Provide HTN Education: Sodium Controlled Diets - Month 2: Provide HTN Education: High Blood Pressure AND Nutrition Disposition Based on school bus aide, the following disposition is advised: No action needed Prema Sampson RN December 29, 2024 2:25 PM Allergies As of Date: 12/29/2024 Noted Allergy Reaction POISON FANY 10/17/2005 SULFA (SULFONAMIDE ANTIBIOTICS) 10/17/2005 4 - Hives Date Reviewed: 08/12 (more content not included)... [facility] 12-15-2024 Note HNO ID: [id number] Author: PREMA SAMPSON RN Service: ? Author Type: Registered Nurse Type: Progress Notes Filed: 12/15/2024 13:47 Note Text: Value based Operations Care Management Heart Failure Guideline Directed Medical Therapy (GDMT) Program Provider Action / FYI: None Chart Review Guideline Directed Medical Therapy (GDMT) Program Last HF admission: 03/25/2024 outside of [facility] GDMT Score: 5 Last Echocardiogram: 03/25/2024 while admitted outside of [facility] Ejection Fraction: 45-50% Basic Metabolic Panel (BMP): CMP completed 08/08/2024 Estimated Glomerular Filtration Rate (eGFR): 44 on 08/08/2024 N-terminal pro B-type natriuretic peptide (NT proBNP): 04/25/2015 Heart Failure (HF) Diagnosis: 12/24/2023 Heart Failure Status: HFpEF - HF diagnosis, EF >=40%, non-dialysis Action Taken: GDMT score is <=6 and EF >40% - Continued Management via CHF Care Path Prema Sampson RN December 15, 2024 1:47 PM [facility] 12-15-2024 History of Presen t illness Narrative Value based Operations Care Management Heart Failure Guideline Directed Medical Therapy (GDMT) Program Provider Action / FYI: None Chart Review Guideline Directed Medical Therapy (GDMT) Program Last HF admission: 03/25/2024 outside of [facility] GDMT Score: 5 Last Echocardiogram: 03/25/2024 while admitted outside of [facility] Ejection Fraction: 45-50% Basic Metabolic Panel (BMP): CMP completed 08/08/2024 Estimated Glomerular Filtration Rate (eGFR): 44 on 08/08/2024 N-terminal pro B-type natriuretic peptide (NT proBNP): 04/25/2015 Heart Failure (HF) Diagnosis: 12/24/2023 Heart Failure Status: HFpEF - HF diagnosis, EF >=40%, non-dialysis Action Taken: GDMT score is <=6 and EF >40% - Continued Management via CHF Care Path Prema Sampson RN December 15, 2024 1:47 PM documented in this encounter [facility] 12-15-2024 Note Patient Outreach (AM [facility]) CANDYANTONIO ([id number]) 1940 F Date Time Provider Department 12/15/24 PREMA SAMPSON During your visit today, we recorded the following information about you: Prema Sampson RN 12/15/2024 1:47 PM Signed Value based Operations Care Management Heart Failure Guideline Directed Medical Therapy (GDMT) Program Provider Action / FYI: None Chart Review Guideline Directed Medical Therapy (GDMT) Program Last HF admission: 03/25/2024 outside of [facility] GDMT Score: 5 Last Echocardiogram: 03/25/2024 while admitted outside of [facility] Ejection Fraction: 45-50% Basic Metabolic Panel (BMP): CMP completed 08/08/2024 Estimated Glomerular Filtration Rate (eGFR): 44 on 08/08/2024 N-terminal pro B-type natriuretic peptide (NT proBNP): 04/25/2015 Heart Failure (HF) Diagnosis: 12/24/2023 Heart Failure Status: HFpEF - HF diagnosis, EF >=40%, non-dialysis Action Taken: GDMT score is <=6 and EF >40% - Continued Management via CHF Care Path Prema Sampson RN December 15, 2024 1:47 PM Allergies As of Date: 12/15/2024 Noted Allergy Reaction POISON FANY 10/17/2005 SULFA (SULFONAMIDE ANTIBIOTICS) 10/17/2005 4 - Hives Date Reviewed: 08/12/2024 Reviewed by: Paty Alan LPN - Fully Assessed Reason for Visit: Care Coordination [3491] Cmt: Chart review End Outreach for CHF GDMT care path Prescriptions as of 12/15/2024 - empagliflozin (JARDIANCE) 10 mg tablet Take 1 tablet by mouth once daily. Take 1 tablet once daily in the morning - levothyroxine (SYNTHROID) 100 mcg tablet Take 1 tablet by mouth once daily. - amitriptyline (ELAVIL) 50 mg tablet Take 1 tablet by mouth daily at bedtime. - glimepiride (AMARYL) 4 mg tablet Take 0.5 tablets by mouth daily with breakfast. - busPIRone (BUSPAR) 15 mg tablet Take 1 tablet by mouth three times a day. - losartan (COZAAR) 100 mg tablet Take 100 mg by mouth once daily. - potassium chloride ER (KLOR-CON) 20 mEq tablet Take two tablets by mouth once daily. - omeprazole (PRILOSEC) 40 mg capsule Take 1 capsule by mouth once daily. - oxyCODONE-acetaminophen (PERCOCET) 5-325 mg tablet TAKE 1 TO 2 TABLETS BY MOUTH EVERY 6 HOURS FOR PAIN - furosemide (LASIX) 40 mg tablet Take 1 tablet by mouth once daily. - metoprolol succinate ER (TOPROL XL) 50 mg 24 hr tablet Take 50 mg by mouth once daily. - nitroglycerin sublingual (NITROSTAT) 0.4 mg SL tablet Dissolve 1 tablet under the tongue every 5 minutes as needed for chest pain. - ketotifen fumarate (ALAWAY) 0.025 % (0.035 %) ophthalmic solution Use 1 Drop in both eyes twice daily. - blood sugar diagnostic (ONETOUCH VERIO TEST STRIPS) test strip TEST BLOOD SUGAR ONCE DAILY - lancets (ONE TOUCH DELICA) 33 gauge Test blood sugar(s) 1 daily. Dx: Other DM Code E 11.29 Insulin: No - amLODIPine (NORVASC) 10 mg tablet Take 1 tablet by mouth once daily. - rivaroxaban (XARELTO) 20 mg tablet Take 20 mg by mouth daily with dinner. - simvastatin (ZOCOR) 20 mg tablet Take 20 mg by mouth daily at bedtime. - acetaminophen (TYLENOL EXTRA STRENGTH) 500 mg ORAL tablet Take 2 tablets by mouth every 4 hours as needed. Meds Comments as of 04/24/2022: Using Voltaren Gel prn for knee pain. 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31] 12/14/2017 Hypertensive kidney disease with stage 3a chron*04/09/2021 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 [facility] 11-25-2024 Telephone encounter Note The following approved medication requests have been transmitted electronically. Requested Prescriptions Pending Prescriptions Disp Refills empagliflozin (JARDIANCE) 10 mg tablet 90 tablet 3 Sig: Take 1 tablet by mouth once daily. Take 1 tablet once daily in the morning Carlos House APRN.CNP [facility] 11-25-2024 Miscellaneous Notes The following approved medication requests have been transmitted electronically. Requested Prescriptions Pending Prescriptions Disp Refills empagliflozin (JARDIANCE) 10 mg tablet 90 tablet 3 Sig: Take 1 tablet by mouth once daily. Take 1 tablet once daily in the morning Carlos House APRN.CNP Next appt 02/06. Prescription Refill Information The patient has been identified by name and date of : Yes Caregiver verified no other encounters exist for this prescription request: Yes Caregiver confirmed with patient/requestor that no other refills are due, in the near future, with this provider at this time: Yes The last office visit in the department: 08/12/24 Does the patient have a future office visit with this provider/department: Yes Requested Prescriptions Pending Prescriptions Disp Refills empagliflozin (JARDIANCE) 10 mg tablet 90 tablet 3 Sig: Take 1 tablet by mouth once daily. Take 1 tablet once daily in the morning Hawa Bustillo November 25, 2024 11:56 AM documented in this encounter [facility] 11-25-2024 Telephone encounter Note Next appt 02/06. [facility] 11-25-2024 Telephone encounter Note Prescription Refill Information The patient has been identified by name and date of : Yes Caregiver verified no other encounters exist for this prescription request: Yes Caregiver confirmed with patient/requestor that no other refills are due, in the near future, with this provider at this time: Yes The last office visit in the department: 08/12/24 Does the patient have a future office visit with this provider/department: Yes Requested Prescriptions Pending Prescriptions Disp Refills empagliflozin (JARDIANCE) 10 mg tablet 90 tablet 3 Sig: Take 1 tablet by mouth once daily. Take 1 tablet once daily in the morning Hawa Bustillo November 25, 2024 11:56 AM [facility] 11-21-2024 Note HNO ID: [id number] Author: BRIAN DONNELLY RN Service: ? Author Type: Registered Nurse Type: Progress Notes Filed: 11/21/2024 12:28 Note Text: CDM Care Path Telephonic Outreach Provider Action/FYI Dr. Rocha: Pt was discharged home with oxygen. Ventress like she did not need it and sent it home. Pt now thinks she needs it and is asking if an order can be sent to a supplier - originally ordered by cardiology (outside of [facility]) They sent home oxygen with me and I didn't think I needed it but now I think I need it. I wake up in the morning wheezing and coughing. My heart doctor, Dr Root (outside [facility]) ordered it and I am too embarrassed to call and ask for it back/argue. Can my pcp order it for me Pt educated that the ordering physician should re-order her oxygen but a message can be sent to her PCP. Pt educated that id she does not hear an update on the oxygen that she needs to reach out to Dr. Root and explain she was educated on the purpose of oxygen, not to be embarrassed. Nurse listened with HEART. Educated pt on purpose of oxygen/heart benefits. Oh that makes sense. My little machine on my finger always says 90% so I didn't think I needed it. Patient identified by Name and Date of . Discussed care with patient. Program Details Chronic Disease Management Status: Enrolled Effective Dates: 09/13/2024 - present Responsible Staff: Prema Sampson RN Support and Services: Hypertension, Diabetes, Chronic Kidney Disease (CKD), Congestive Heart Failure (CHF) Program Goals Targets Target Due Completed Completed By Outcome Annual Nephrology visit addressed 12/14/2024 -- -- -- Comprehensive CKD education provided 12/14/2024 -- -- -- Comprehensive Diabetes education provided 12/14/2024 -- -- -- Comprehensive HTN education provided 12/14/2024 -- -- -- Comprehensive CHF education provided 12/14/2024 10/28/2024 Prema Sampson RN Complete Discussed monitoring weight regularly and reporting changes, and signs/symptoms to report - The following were handouts were reviewed: Understanding Heart Failure, Sodium and Heart Failure, Heart Failure: Exercise and Activity, and Heart Failure Zones General education provided (managing stress, where to go/how to contact, etc.) 10/14/2024 10/07/2024 NIYA Bryan Reviewed how to contact Primary Care via phone - Healthy at Home phone number also reviewed , Where to Go for Care reviewed, Stress Management and Emotional Health reviewed Intake assessments completed: ADLs, Fall Risk, SDOH 10/14/2024 09/13/2024 Prema Sampson RN Complete Annual Medicare Wellness visit addressed 12/14/2024 09/13/2024 Prema Sampson RN Complete/Scheduled Completed 08/12/24 Biannual Cardiology visit addressed 12/14/2024 09/13/2024 Prema Sampson RN Complete/Scheduled Patient sees Cardiology outside of [facility] - office notes in scanned documents from 05/09/24, 02/20/24, 12/25/23 Biannual PCP visit addressed 12/14/2024 09/13/2024 Prema Sampson RN Complete/Scheduled Recent appts 04/06/24, 02/01/24 - Next appt 02/06/25 CKD lab care gaps addressed 12/14/2024 09/13/2024 Prema Sampson RN Complete/Scheduled Diabetes lab care gaps addressed 12/14/2024 09/13/2024 Prema Sampson RN Complete/Scheduled HTN lab care gaps addressed 12/14/2024 09/13/2024 Prema Sampson RN Complete/Scheduled Patient-stated goal addressed (add comment) 12/14/2024 09/13/2024 NIYA Bryan To remain free of falls by using her walker Assessments CDM Assessment Symptoms: Are you experiencing any new or worsening symptoms that you need to talk about today?: Yes ADLs No documentation this encounter Fall Risk No documentation this encounter SDOH No documentation this encounter Interventions The following were addressed during this visit: - Month 1: Provide HTN Education: When to call your Doctor, When to seek Emergency Care - Month 3: Provide HTN Education: Understanding Medications - Month 3: Provide HTN Education: Medication Compliance - Evaluate for Consult to Diabetes Education - Month 3: Provide Diabetes Education: Medication Adherence/Compliance - Month 3: Provide Diabetes Education: Understanding Medication - Bi-Weekly Outreach (Recurring) Disposition Based on school bus aide, the following disposition is advised: No action needed (routed to pcp) Brian Donnelly RN November 21, 2024 12:15 PM [facility] 11-21-2024 History of Presen t illness Narrative Images from the original note were not included. CDM Care Path Telephonic Outreach Provider Action/FYI Dr. Rocha: Pt was discharged home with oxygen. Ventress like she did not need it and sent it home. Pt now thinks she needs it and is asking if an order can be sent to a supplier - originally ordered by cardiology (outside of [facility]) They sent home oxygen with me and I didn't think I needed it but now I think I need it. I wake up in the morning wheezing and coughing. My heart doctor, Dr Root (outside [facility]) ordered it and I am too embarrassed to call and ask for it back/argue. Can my pcp order it for me Pt educated that the ordering physician should re-order her oxygen but a message can be sent to her PCP. Pt educated that id she does not hear an update on the oxygen that she needs to reach out to Dr. Root and explain she was educated on the purpose of oxygen, not to be embarrassed. Nurse listened with HEART. Educated pt on purpose of oxygen/heart benefits. Oh that makes sense. My little machine on my finger always says 90% so I didn't think I needed it. Patient identified by Name and Date of . Discussed care with patient. Program Details Chronic Disease Management Status: Enrolled Effective Dates: 09/13/2024 - present Responsible Staff: Prema Sampson RN Support and Services: Hypertension, Diabetes, Chronic Kidney Disease (CKD), Congestive Heart Failure (CHF) Program Goals Targets Target Due Completed Completed By Outcome Annual Nephrology visit addressed 12/14/2024 -- -- -- Comprehensive CKD education provided 12/14/2024 -- -- -- Comprehensive Diabetes education provided 12/14/2024 -- -- -- Comprehensive HTN education provided 12/14/2024 -- -- -- Comprehensive CHF education provided 12/14/2024 10/28/2024 NIYA Bryan Discussed monitoring weight regularly and reporting changes, and signs/symptoms to report - The following were handouts were reviewed: Understanding Heart Failure, Sodium and Heart Failure, Heart Failure: Exercise and Activity, and Heart Failure Zones General education provided (managing stress, where to go/how to contact, etc.) 10/14/2024 10/07/2024 NIYA Bryan Reviewed how to contact Primary Care via phone - Healthy at Home phone number also reviewed , Where to Go for Care reviewed, Stress Management and Emotional Health reviewed Intake assessments completed: ADLs, Fall Risk, SDOH 10/14/2024 09/13/2024 Prema Sampson RN Complete Annual Medicare Wellness visit addressed 12/14/2024 09/13/2024 Prema Sampson RN Complete/Scheduled Completed 08/12/24 Biannual Cardiology visit addressed 12/14/2024 09/13/2024 Prema Sampson RN Complete/Scheduled Patient sees Cardiology outside of [facility] - office notes in scanned documents from 05/09/24, 02/20/24, 12/25/23 Biannual PCP visit addressed 12/14/2024 09/13/2024 Prema Sampson RN Complete/Scheduled Recent appts 04/06/24, 02/01/24 - Next appt 02/06/25 CKD lab care gaps addressed 12/14/2024 09/13/2024 Prema Sampson RN Complete/Scheduled Diabetes lab care gaps addressed 12/14/2024 09/13/2024 Prema Sampson RN Complete/Scheduled HTN lab care gaps addressed 12/14/2024 09/13/2024 Prema Sampson RN Complete/Scheduled Patient-stated goal addressed (add comment) 12/14/2024 09/13/2024 Prema Bill, RN Complete To remain free of falls by using her walker Assessments CDM Assessment Symptoms: Are you experiencing any new or worsening symptoms that you need to talk about today?: Yes ADLs No documentation this encounter Fall Risk No documentation this encounter SDOH No documentation this encounter Interventions The following were addressed during this visit: - Month 1: Provide HTN Education: When to call your Doctor, When to seek Emergency Care - Month 3: Provide HTN Education: Understanding Medications - Month 3: Provide HTN Education: Medication Compliance - Evaluate for Consult to Diabetes Education - Month 3: Provide Diabetes Education: Medication Adherence/Compliance - Month 3: Provide Diabetes Education: Understanding Medication - Bi-Weekly Outreach (Recurring) Disposition Based on school bus aide, the following disposition is advised: No action needed (routed to pcp) Brian Donnelly RN November 21, 2024 12:15 PM documented in this encounter [facility] 11-21-2024 Note Patient Outreach (AM [facility]) ANTONIO GUPTA ([id number]) 1940 F Date Time Provider Department 11/21/24 BRIAN DONNELLY [facility] [place] During your visit today, we recorded the following information about you: Brian Donnelly RN 11/21/2024 12:28 PM Signed [facility] Care Path Telephonic Outreach Provider Action/FYI Dr. Rocha: Pt was discharged home with oxygen. Ventress like she did not need it and sent it home. Pt now thinks she needs it and is asking if an order can be sent to a supplier - [facility] ordered by cardi[facility] ([facility]) They sent home oxygen with me and I didn't think I needed it but now I think I need it. I wake up in the morning wheezing and coughing. My heart doctor, Dr Root (outside [facility]) ordered it and I am too embarrassed to call and ask for it back/argue. Can my pcp order it for me Pt educated that the ordering physician should re-order her oxygen but a message can be sent to her PCP. Pt educated that id she does not hear an update on the oxygen that she needs to reach out to Dr. Root and explain she was educated on the purpose of oxygen, not to be embarrassed. Nurse listened with HEART. Educated pt on purpose of oxygen/heart benefits. Oh that makes sense. My little machine on my finger always says 90% so I didn't think I needed it. Patient identified by Name and Date of . Discussed care with patient. Program Details Chronic Disease Management Status: Enrolled Effective Dates: 09/13/2024 - present Responsible Staff: Prema Sampson RN Support and Services: Hypertension, Diabetes, Chronic Kidney Disease (CKD), Congestive Heart Failure (CHF) Program Goals Targets Target Due Completed Completed By Outcome Annual Nephrology visit addressed 12/14/2024 -- -- -- Comprehensive CKD education provided 12/14/2024 -- -- -- Comprehensive Diabetes education provided 12/14/2024 -- -- -- Comprehensive HTN education provided 12/14/2024 -- -- -- Comprehensive CHF education provided 12/14/2024 10/28/2024 Prema Sampson RN Complete Discussed monitoring weight regularly and reporting changes, and signs/symptoms to report - The following were handouts were reviewed: Understanding Heart Failure, Sodium and Heart Failure, Heart Failure: Exercise and Activity, and Heart Failure Zones General education provided (managing stress, where to go/how to contact, etc.) 10/14/2024 10/07/2024 Prema Sampson RN Complete Reviewed how to contact Primary Care via phone - Healthy at Home phone number also reviewed , Where to Go for Care reviewed, Stress Management and Emotional Health reviewed Intake assessments completed: ADLs, Fall Risk, SDOH 10/14/2024 09/13/2024 Prema Sampson RN Complete Annual Medicare Wellness visit addressed 12/14/2024 09/13/2024 Prema Sampson RN Complete/Scheduled Completed 08/12/24 Biannual Cardiology visit addressed 12/14/2024 09/13/2024 Prema Sampson RN Complete/Scheduled Patient sees Cardiology outside of [facility] - office notes in scanned documents from 05/09/24, 02/20/24, 12/25/23 Biannual PCP visit addressed 12/14/2024 09/13/2024 Prema Sampson RN Complete/Scheduled Recent appts 04/06/24, 02/01/24 - Next appt 02/06/25 CKD lab care gaps addressed 12/14/2024 09/13/2024 Prema Sampson RN Complete/Scheduled Diabetes lab care gaps addressed 12/14/2024 09/13/2024 Prema Sampson RN Complete/Scheduled HTN lab care gaps addressed 12/14/2024 09/13/2024 Prema Sampson RN Complete/Scheduled Patient-stated goal addressed (add comment) 12/14/2024 09/13/2024 Prema Sampson RN Complete To remain free of falls by using her walker Assessments CDM Assessment Symptoms: Are you experiencing any new or worsening symptoms that you need to talk about today?: Yes ADLs No documentation this encounter Fall Risk No documentation this encounter SDOH No documentation this encounter Interventions The following were addressed during this visit: - Month 1: Provide HTN Education: When to call your Doctor, When to seek Emergency Care - Month 3: Provide HTN Education: Understanding Medications - Month 3: Provide HTN Education: Medication Compliance - Evaluate for Consult to Diabetes Education - Month 3: Provide Diabetes Education: Medication Adherence/Compliance - Month 3: Provide Diabetes Education: Understanding Medication - Bi-Weekly Outreach (Recurring) Disposition Based on school bus aide, the following disposition is advised: No action needed (routed to pcp) Brian Donnelly RN November 21, 2024 12:15 PM Allergies As of Date: 11/21/2024 Noted Allergy Reaction POISON FANY 10/17/2005 SULFA (SULFONAMIDE ANTIBIOTICS) 10/17/2005 4 - Hives Date Reviewed: 08/12/2024 Reviewed by: Paty Alan LPN - Fully Assessed Prescriptions as of 11/21/2024 - levothyroxine (SYNTHROID) 100 mcg tablet Take 1 tablet by mouth once daily. - amitriptyline (ELAVIL) 50 mg tablet Take 1 tablet by mouth daily at bed (more content not included)... [facility] 11-18-2024 Evaluation note Diagnosis Onset Date Resolution Longstanding persistent atrial fibrillation chronic November 18, 2024 10:57am Presence of cardiac pacemaker April 26, 2015 chronic November 18, 2024 10:57am History of coronary artery stent placement September, resolved November 18, 2024 10:57am Essential (primary) hypertension inactive November 18, 2024 10:57am Hyperlipidemia inactive November 18 10:57am [facility] Work Phone: [phone]) 713-850104-18-2025 NoteHNO ID: [id number] Author: PREMA SAMPSON RN Service: ? Author Type: Registered Nurse Type: Progress Notes Filed: 10/28/2024 11:49 Note Text: CDM Care Path Telephonic Outreach Provider Action/FYI None Patient identified by Name and Date of . Discussed care with patient. Logistics Manager call note: Health topics discussed today: - Understanding heart failure - Heart failure zones sent via [employer] - Importance of monitoring weight and reporting changes - Diet and CHF/ways to decrease salt in the diet - Activity/exercise - Signs and symptoms to report were reviewed Patient admits that she has not been weighing herself Also she has not been doing well with adhering to low-salt diet or fluid restrictions that she was advised of in the past She has intermittent edema and SOB-she denies need to speak to a provider today Patient intends to start monitoring her diet a little closer and start weighing herself again to report any changes We also discussed elevating her legs her legs and/or using her compression stockings using her compression stockings (which she has not been doing) She notes that she has an appointment next month with her heart doctor Patient was very interested in and engaged with teaching topic today Patient denies any concerns/symptoms that require physician attention at this time Program Details Chronic Disease Management Status: Enrolled Effective Dates: 09/13/2024 - present Responsible Staff: Prema Sampson, RN Support and Services: Hypertension, Diabetes, Chronic Kidney Disease (CKD), Congestive Heart Failure (CHF) Program Goals Targets Target Due Completed Completed By Outcome Annual Nephrology visit addressed 12/14/2024 -- -- -- Comprehensive CKD education provided 12/14/2024 -- -- -- Comprehensive Diabetes education provided 12/14/2024 -- -- -- Comprehensive HTN education provided 12/14/2024 -- -- -- Comprehensive CHF education provided 12/14/2024 10/28/2024 Prema Sampson RN Complete Discussed monitoring weight regularly and reporting changes, and signs/symptoms to report - The following were handouts were reviewed: Understanding Heart Failure, Sodium and Heart Failure, Heart Failure: Exercise and Activity, and Heart Failure Zones General education provided (managing stress, where to go/how to contact, etc.) 10/14/2024 10/07/2024 NIYA Bryan Reviewed how to contact Primary Care via phone - Healthy at Home phone number also reviewed , Where to Go for Care reviewed, Stress Management and Emotional Health reviewed Intake assessments completed: ADLs, Fall Risk, SDOH 10/14/2024 09/13/2024 Prema Sampson RN Complete Annual Medicare Wellness visit addressed 12/14/2024 09/13/2024 Prema Sampson RN Complete/Scheduled Completed 08/12/24 Biannual Cardiology visit addressed 12/14/2024 09/13/2024 Prema Sampson RN Complete/Scheduled Patient sees Cardiology outside of [facility] - office notes in scanned documents from 05/09/24, 02/20/24, 12/25/23 Biannual PCP visit addressed 12/14/2024 09/13/2024 Prema Sampson RN Complete/Scheduled Recent appts 04/06/24, 02/01/24 - Next appt 02/06/25 CKD lab care gaps addressed 12/14/2024 09/13/2024 Prema Sampson RN Complete/Scheduled Diabetes lab care gaps addressed 12/14/2024 09/13/2024 Prema Sampson RN Complete/Scheduled HTN lab care gaps addressed 12/14/2024 09/13/2024 Prema Sampson RN Complete/Scheduled Patient-stated goal addressed (add comment) 12/14/2024 09/13/2024 Prema Sampson RN Complete To remain free of falls by using her walker Assessments CDM Assessment Medications: Do you have any questions about taking your medications or which medications you should be taking?: No Do you need any medication refills at this time, including any of the medication you might take only when needed?: No Social: It can be normal to feel anxious or down during a time like this. Would you like to talk to a mental health professional about how you have been feeling?: (Did not discuss today) Symptoms: Are you experiencing any new or worsening symptoms that you need to talk about today?: No ADLs No documentation this encounter Fall Risk No documentation this encounter SDOH No documentation this encounter Interventions The following were addressed during this visit: - Comprehensive CHF education provided - Month 1: Provide CHF Education: Understanding Heart Failure - Month 1: Provide CHF Education: Heart Failure Zones - Month 2: Provide CHF Education: Keeping Track of Your Weight - Month 2: Provide CHF Education: Diet Modifications - Month 3: Provide CHF Education: Activity Guidelines/Exercise - Bi-Weekly Outreach (Recurring) Disposition Based on school bus aide, the following disposition is advised: No action needed Prema Sampson RN October 28, 2024 11:46 [place] [id number] History of Present illness Narrative* Prema Sampson RN - 10/28/2024 11:46 AM EDT Images from the original note were not included. CDM [facility] Telephonic Outreach Provider Action/FYI None Patient identified by Name and Date of . Discussed care with patient. Logistics Manager call note: Health topics discussed today: - Understanding heart failure - Heart failure zones sent via [employer] - Importance of monitoring weight and reporting changes - Diet and CHF/ways to decrease salt in the diet - Activity/exercise - Signs and symptoms to report were reviewed Patient admits that she has not been weighing herself Also she has not been doing well with adhering to low-salt diet or fluid restrictions that she was advised of in the past She has intermittent edema and SOB-she denies need to speak to a provider today Patient intends to start monitoring her diet a little closer and start weighing herself again to report any changes We also discussed elevating her legs her legs and/or using her compression stockings using her compression stockings (which she has not been doing) She notes that she has an appointment next month with her heart doctor Patient was very interested in and engaged with teaching topic today Patient denies any concerns/symptoms that require physician attention at this time Program Details Chronic Disease Management Status: Enrolled Effective Dates: 09/13/2024 - present Responsible Staff: Prema Sampson, NIYA Support and Services: Hypertension, Diabetes, Chronic Kidney Disease (CKD), Congestive Heart Failure (CHF) Program Goals Targets Target Due Completed Completed By Outcome Annual Nephrology visit addressed 12/14/2024 -- -- -- Comprehensive CKD education provided 12/14/2024 -- -- -- Comprehensive Diabetes education provided 12/14/2024 -- -- -- Comprehensive HTN education provided 12/14/2024 -- -- -- Comprehensive CHF education provided 12/14/2024 10/28/2024 Prema Sampson RN Complete Discussed monitoring weight regularly and reporting changes, and signs/symptoms to report - The following were handouts were reviewed: Understanding Heart Failure, Sodium and Heart Failure, Heart Failure: Exercise and Activity, and Heart Failure Zones General education provided (managing stress, where to go/how to contact, etc.) 10/14/2024 10/07/2024 NIYA Bryan Reviewed how to contact Primary Care via phone - Healthy at Home phone number also reviewed , Whereto Go for Care reviewed, Stress Management and Emotional Health reviewed Intake assessments completed: ADLs, Fall Risk, SDOH 10/14/2024 09/13/2024 Prema Sampson RN Complete Annual Medicare Wellness visit addressed 12/14/2024 09/13/2024 Prema Sampson RN Complete/Scheduled Completed 08/12/24 Biannual Cardiology visit addressed 12/14/2024 09/13/2024 Prema Sampson RN Complete/Scheduled Patient sees Cardiology outside of [facility] - office notes in scanned documents from 05/09/24, 02/20/24, 12/25/23 Biannual PCP visit addressed 12/14/2024 09/13/2024 Prema Sampson RN Complete/Scheduled Recent appts 04/06/24, 02/01/24 - Next appt 02/06/25 CKD lab care gaps addressed 12/14/2024 09/13/2024 Prema Sampson RN Complete/Scheduled Diabetes lab care gaps addressed 12/14/2024 09/13/2024 Prema Sampson RN Complete/Scheduled HTN lab care gaps addressed 12/14/2024 09/13/2024 Prema Sampson RN Complete/Scheduled Patient-stated goal addressed (add comment) 12/14/2024 09/13/2024 Prema Sampson RN Complete To remain free of falls by using her walker Assessments CDM Assessment Medications: Do you have any questions about taking your medications or which medications you should be taking?:No Do you need any medication refills at this time, including any of the medication you might take only when needed?: No Social: It can be normal to feel anxious or down during a time like this. Would you like to talk to a mental health professional about how you have been feeling?: (Did not discuss today) Symptoms: Are you experiencing any new or worsening symptoms that you need to talk about today?: No ADLs No documentation this encounter Fall Risk No documentation this encounter SDOH No documentation this encounter Interventions The following were addressed during this visit: - Comprehensive CHF education provided - Month 1: Provide CHF Education: Understanding Heart Failure - Month 1: Provide CHF Education: Heart Failure Zones - Month 2: Provide CHF Education: Keeping Track of Your Weight - Month 2: Provide CHF Education: Diet Modifications - Month 3: Provide CHF Education: Activity Guidelines/Exercise - Bi-Weekly Outreach (Recurring) Disposition Based on school bus aide, the following disposition is advised: No action needed Prema Sampson RN October 28, 2024 11:46 AM [facility] NotePatient Outreach ([facility]) ANTONIO GUPTA ([id number]) 1940 F Date Time Provider Department 10/28/24 PREMA SAMPSON AMBIAIN During your visit today, we recorded the following information about you: Prema Sampson RN 10/28/2024 11:49 AM Signed CD Care Path Telephonic Outreach Provider Action/FYI None Patient identified by Name and Date of . Discussed care with patient. Logistics Manager call note: Health topics discussed today: - Understanding heart failure - Heart failure zones sent via [employer] - Importance of monitoring weight and reporting changes - Diet and CHF/ways to decrease salt in the diet - Activity/exercise - Signs and symptoms to report were reviewed Patient admits that she has not been weighing herself Also she has not been doing well with adhering to low-salt diet or fluid restrictions that she was advised of in the past She has intermittent edema and SOB-she denies need to speak to a provider today Patient intends to start monitoring her diet a little closer and start weighing herself again to report any changes We also discussed elevating her legs her legs and/or using her compression stockings using her compression stockings (which she has not been doing) She notes that she has an appointment next month with her heart doctor Patient was very interested in and engaged with teaching topic today Patient denies any concerns/symptoms that require physician attention at this time Program Details Chronic Disease Management Status: Enrolled Effective Dates: 09/13/2024 - present Responsible Staff: Prema Sampson RN Support and Services: Hypertension, Diabetes, Chronic Kidney Disease (CKD), Congestive Heart Failure (CHF) Program Goals Targets Target Due Completed Completed By Outcome Annual Nephrology visit addressed 12/14/2024 -- -- -- Comprehensive CKD education provided 12/14/2024 -- -- -- Comprehensive Diabetes education provided 12/14/2024 -- -- -- Comprehensive HTN education provided 12/14/2024 -- -- -- Comprehensive CHF education provided 12/14/2024 10/28/2024 Prema Sampson RN Complete Discussed monitoring weight regularly and reporting changes, and signs/symptoms to report - The following were handouts were reviewed: Understanding Heart Failure, Sodium and Heart Failure, Heart Failure: Exercise and Activity, and Heart Failure Zones General education provided (managing stress, where to go/how to contact, etc.) 10/14/2024 10/07/2024 Prema Sampson RN Complete Reviewed how to contact Primary Care via phone - Healthy at Home phone number also reviewed , Where to Go for Care reviewed, Stress Management and Emotional Health reviewed Intake assessments completed: ADLs, Fall Risk, SDOH 10/14/2024 09/13/2024 Prema Sampson RN Complete Annual Medicare Wellness visit addressed 12/14/2024 09/13/2024 Prema Sampson RN Complete/Scheduled Completed 08/12/24 Biannual Cardiology visit addressed 12/14/2024 09/13/2024 Prema Sampson RN Complete/Scheduled Patient sees Cardiology outside of [facility] - office notes in scanned documents from 05/09/24, 02/20/24, 12/25/23 Biannual PCP visit addressed 12/14/2024 09/13/2024 Prema Sampson RN Complete/Scheduled Recent appts 04/06/24, 02/01/24 - Next appt 02/06/25 CKD lab care gaps addressed 12/14/2024 09/13/2024 Prema Sampson RN Complete/Scheduled Diabetes lab care gaps addressed 12/14/2024 09/13/2024 Prema Sampson RN Complete/Scheduled HTN lab care gaps addressed 12/14/2024 09/13/2024 Prema Sampson RN Complete/Scheduled Patient-stated goal addressed (add comment) 12/14/2024 09/13/2024 Prema Sampson RN Complete To remain free of falls by using her walker Assessments CDM Assessment Medications: Do you have any questions about taking your medications or which medications you should be taking?: No Do you need any medication refills at this time, including any of the medication you might take only when needed?: No Social: It can be normal to feel anxious or down during a time like this. Would you like to talk to a mental health professional about how you have been feeling?: (Did not discuss today) Symptoms: Are you experiencing any new or worsening symptoms that you need to talk about today?: No ADLs No documentation this encounter Fall Risk No documentation this encounter SDOH No documentation this encounter Interventions The following were addressed during this visit: - Comprehensive CHF education provided - Month 1: Provide CHF Education: Understanding Heart Failure - Month 1: Provide CHF Education: Heart Failure Zones - Month 2: Provide CHF Education: Keeping Track of Your Weight - Month 2: Provide CHF Education: Diet Modifications - Month 3: Provide CHF Education: Activity Guidelines/Exercise - Bi-Weekly Outreach (Recurring) Disposition Based on school bus aide, the following disposition is advised: No action needed Prema (more content not included)...[facility]04-17-2025 Telephone encounter Note* Telephone Encounter - Carlos House APRN.HOTEL SALES MANAGER - 10/27/2024 12:57 PM EDT The following approved medication requests have been transmitted electronically. Requested Prescriptions Pending Prescriptions Disp Refills levothyroxine (SYNTHROID) 100 mcg tablet 90 tablet 3 Sig: Take 1 tablet by mouth once daily. Carlos House APRN.CNP [facility]04-17-2025 Miscellaneous Notes* Telephone Encounter - Carlos House APRN.CNP - 10/27/2024 12:57 PM EDT The following approved medication requests have been transmitted electronically. Requested Prescriptions Pending Prescriptions Disp Refills levothyroxine (SYNTHROID) 100 mcg tablet 90 tablet 3 Sig: Take 1 tablet by mouth once daily. Carlos House APRN.CNP * Telephone Encounter - Yovana Guerra - 10/27/2024 9:54 AM EDT Prescription Refill Information The patient has been identified by name and date of : Yes Caregiver verified no other encounters exist for this prescription request: Yes Caregiver confirmed with patient/requestor that no other refills are due, in the near future, with this provider at this time: Yes The last office visit in the department: 08/12/24 Does the patient have a future office visit with this provider/department: Yes 02/06/25 Requested Prescriptions Pending Prescriptions Disp Refills levothyroxine (SYNTHROID) 100 mcg tablet 90 tablet 3 Sig: Take 1 tablet by mouth once daily. Yovana Guerra October 27, 2024 9:54 AM documented in [facility] encounter[facility]04-[facility] Telephone encounter Note * Telephone Encounter - Yovana Guerra - 10/27/2024 9:54 AM EDT Prescription Refill Information The patient has been identified by name and date of : Yes Caregiver verified no other encounters exist for this prescription request: Yes Caregiver confirmed with patient/requestor that no other refills are due, in the near future, with this provider at this time: Yes The last office visit in the department: 08/12/24 Does the patient have a future office visit with this provider/department: Yes 02/06/25 Requested Prescriptions Pending Prescriptions Disp Refills levothyroxine (SYNTHROID) 100 mcg tablet 90 tablet 3 Sig: Take 1 tablet by mouth once daily. Yovana Guerra October 27, 2024 9:54 AM [facility]03-28-2025 NoteHNO ID: [id number] Author: PREMA SAMPSON RN Service: ? Author Type: Registered Nurse Type: Progress Notes Filed: 10/07/2024 13:00 Note Text: CDM [facility] Telephonic Outreach Provider Action/FYI None Patient identified by Name and Date of . Discussed care with patient. Logistics Manager call note: Health topics discussed today: -How to contact Primary Care/Healthy at Home -Where to go for care -Managing stress Patient denies any concerns/symptoms that require physician attention at this time Program Details Chronic Disease Management Status: Enrolled Effective Dates: 09/13/2024 - present Responsible Staff: Prema Sampson RN Support and Services: Hypertension, Diabetes, Chronic Kidney Disease (CKD), Congestive Heart Failure (CHF) Program Goals Targets Target Due Completed Completed By Outcome General education provided (managing stress, where to go/how to contact, etc.) 10/14/2024 -- -- -- Annual Nephrology visit addressed 12/14/2024 -- -- -- Comprehensive CHF education provided 12/14/2024 -- -- -- Comprehensive CKD education provided 12/14/2024 -- -- -- Comprehensive Diabetes education provided 12/14/2024 -- -- -- Comprehensive HTN education provided 12/14/2024 -- -- -- Intake assessments completed: ADLs, Fall Risk, SDOH 10/14/2024 09/13/2024 Prema Sampson RN Complete Annual Medicare Wellness visit addressed 12/14/2024 09/13/2024 Prema Sampson RN Complete/Scheduled Completed 08/12/24 Biannual Cardiology visit addressed 12/14/2024 09/13/2024 Prema Sampson RN Complete/Scheduled Patient sees Cardiology outside of [facility] - office notes in scanned documents from 05/09/24, 02/20/24, 12/25/23 Biannual PCP visit addressed 12/14/2024 09/13/2024 Prema Sampson RN Complete/Scheduled Recent appts 04/06/24, 02/01/24 - Next appt 02/06/25 CKD lab care gaps addressed 12/14/2024 09/13/2024 Prema Sampson RN Complete/Scheduled Diabetes lab care gaps addressed 12/14/2024 09/13/2024 Prema Sampson RN Complete/Scheduled HTN lab care gaps addressed 12/14/2024 09/13/2024 Prema Sampson RN Complete/Scheduled Patient-stated goal addressed (add comment) 12/14/2024 09/13/2024 Prema Sampson RN Complete To remain free of falls by using her walker Assessments CDM Assessment Medications: Do you have any questions about taking your medications or which medications you should be taking?: No Do you need any medication refills at this time, including any of the medication you might take only when needed?: No Social: It can be normal to feel anxious or down during a time like this. Would you like to talk to a mental health professional about how you have been feeling?: No Symptoms: Are you experiencing any new or worsening symptoms that you need to talk about today?: No ADLs No documentation this encounter Fall Risk No documentation this encounter SDOH No documentation this encounter Interventions The following were addressed during this visit: - Month 1: Provide General Education: Smoking Cessation - Month 1: Provide General Education: Managing Stress AND Anxiety - Month 1: Provide General Education: Where to Go for Care - Month 1: Provide General Education: How to Contact Your Physician Team - Bi-Weekly Outreach (Recurring) Disposition Based on school bus aide, the following disposition is advised: No action needed Prema Sampson RN October 07, 2024 12:59 [facility]03-28-2025 History of Present illness Narrative* Prema Sampson RN - 10/07/2024 12:59 PM EDT Images from the original note were not included. CDM Care Path Telephonic Outreach Provider Action/FYI None Patient identified by Name and Date of . Discussed care with patient. Logistics Manager call note: Health topics discussed today: -How to contact Primary Care/Healthy at Home -Where to go for care -Managing stress Patient denies any concerns/symptoms that require physician attention at this time Program Details Chronic Disease Management Status: Enrolled Effective Dates: 09/13/2024 - present Responsible Staff: Prema Sampson RN Support and Services: Hypertension, Diabetes, Chronic Kidney Disease (CKD), Congestive Heart Failure (CHF) Program Goals Targets Target Due Completed Completed By Outcome General education provided (managing stress, where to go/how to contact, etc.) 10/14/2024 -- -- -- Annual Nephrology visit addressed 12/14/2024 -- -- -- Comprehensive CHF education provided 12/14/2024 -- -- -- Comprehensive CKD education provided 12/14/2024 -- -- -- Comprehensive Diabetes education provided 12/14/2024 -- -- -- Comprehensive HTN education provided 12/14/2024 -- -- -- Intake assessments completed: ADLs, Fall Risk, SDOH 10/14/2024 09/13/2024 Prema Sampson RN Complete Annual Medicare Wellness visit addressed 12/14/2024 09/13/2024 Prema Sampson RN Complete/Scheduled Completed 08/12/24 Biannual Cardiology visit addressed 12/14/2024 09/13/2024 Prema Sampson RN Complete/Scheduled Patient sees Cardiology outside of [facility] - office notes in scanned documents from 05/09/24, 02/20/24, 12/25/23 Biannual PCP visit addressed 12/14/2024 09/13/2024 Prema Sampson RN Complete/Scheduled Recent appts 04/06/24, 02/01/24 - Next appt 02/06/25 CKD lab care gaps addressed 12/14/2024 09/13/2024 Prema Sampson RN Complete/Scheduled Diabetes lab care gaps addressed 12/14/2024 09/13/2024 Prema Sampson RN Complete/Scheduled HTN lab care gaps addressed 12/14/2024 09/13/2024 Prema Sampson RN Complete/Scheduled Patient-stated goal addressed (add comment) 12/14/2024 09/13/2024 Prema Sampson RN Complete To remain free of falls by using her walker Assessments CDM Assessment Medications: Do you have any questions about taking your medications or which medications you should be taking?:No Do you need any medication refills at this time, including any of the medication you might take only when needed?: No Social: It can be normal to feel anxious or down during a time like this. Would you like to talk to a mental health professional about how you have been feeling?: No Symptoms: Are you experiencing any new or worsening symptoms that you need to talk about today?: No ADLs No documentation this encounter Fall Risk No documentation this encounter SDOH No documentation this encounter Interventions The following were addressed during this visit: - Month 1: Provide General Education: Smoking Cessation - Month 1: Provide General Education: Managing Stress & Anxiety - Month 1: Provide General Education: Where to Go for Care - Month 1: Provide General Education: How to Contact Your Physician Team - Bi-Weekly Outreach (Recurring) Disposition Based on school bus aide, the following disposition is advised: No action needed Prema Sampson RN October 07, 2024 12:59 PM documented in [facility] encounter[facility]03-28-[facility] NotePatient Outreach ([facility]) ANTONIO GUPTA ([id number]) 1940 F Date Time Provider Department 10/07/24 PREMA SAMPSON During your visit today, we recorded the following information about you: Prema Sampson RN 10/07/2024 1:00 PM Signed [facility] Care Path Telephonic Outreach Provider Action/FYI None Patient identified by Name and Date of . Discussed care with patient. Logistics Manager call note: Health topics discussed today: -How to contact Primary Care/Healthy at Home -Where to go for care -Managing stress Patient denies any concerns/symptoms that require physician attention at this time Program Details Chronic Disease Management Status: Enrolled Effective Dates: 09/13/2024 - present Responsible Staff: Prema Sampson, RN Support and Services: Hypertension, Diabetes, Chronic Kidney Disease (CKD), Congestive Heart Failure (CHF) Program Goals Targets Target Due Completed Completed By Outcome General education provided (managing stress, where to go/how to contact, etc.) 10/14/2024 -- -- -- Annual Nephrology visit addressed 12/14/2024 -- -- -- Comprehensive CHF education provided 12/14/2024 -- -- -- Comprehensive CKD education provided 12/14/2024 -- -- -- Comprehensive Diabetes education provided 12/14/2024 -- -- -- Comprehensive HTN education provided 12/14/2024 -- -- -- Intake assessments completed: ADLs, Fall Risk, SDOH 10/14/2024 09/13/2024 Prema Sampson RN Complete Annual Medicare Wellness visit addressed 12/14/2024 09/13/2024 Prema Sampson RN Complete/Scheduled Completed 08/12/24 Biannual Cardiology visit addressed 12/14/2024 09/13/2024 Prema Sampson RN Complete/Scheduled Patient sees Cardiology outside of [facility] - office notes in scanned documents from 05/09/24, 02/20/24, 12/25/23 Biannual PCP visit addressed 12/14/2024 09/13/2024 Prema Sampson RN Complete/Scheduled Recent appts 04/06/24, 02/01/24 - Next appt 02/06/25 CKD lab care gaps addressed 12/14/2024 09/13/2024 Prema Sampson RN Complete/Scheduled Diabetes lab care gaps addressed 12/14/2024 09/13/2024 Prema Sampson RN Complete/Scheduled HTN lab care gaps addressed 12/14/2024 09/13/2024 Prema Sampson RN Complete/Scheduled Patient-stated goal addressed (add comment) 12/14/2024 09/13/2024 Prema Sampson RN Complete To remain free of falls by using her walker Assessments CDM Assessment Medications: Do you have any questions about taking your medications or which medications you should be taking?: No Do you need any medication refills at this time, including any of the medication you might take only when needed?: No Social: It can be normal to feel anxious or down during a time like this. Would you like to talk to a mental health professional about how you have been feeling?: No Symptoms: Are you experiencing any new or worsening symptoms that you need to talk about today?: No ADLs No documentation this encounter Fall Risk No documentation this encounter SDOH No documentation this encounter Interventions The following were addressed during this visit: - Month 1: Provide General Education: Smoking Cessation - Month 1: Provide General Education: Managing Stress AND Anxiety - Month 1: Provide General Education: Where to Go for Care - Month 1: Provide General Education: How to Contact Your Physician Team - Bi-Weekly Outreach (Recurring) Disposition Based on school bus aide, the following disposition is advised: No action needed Prema Sampson RN October 07, 2024 12:59 PM Allergies As of Date: 10/07/2024 Noted Allergy Reaction POISON FANY 10/17/2005 SULFA (SULFONAMIDE ANTIBIOTICS) 10/17/2005 4 - Hives Date Reviewed: 08/12/2024 Reviewed by: Paty Alan LPN - Fully Assessed Prescriptions as of 10/07/2024 - amitriptyline (ELAVIL) 50 mg tablet Take 1 tablet by mouth daily at bedtime. - glimepiride (AMARYL) 4 mg tablet Take 0.5 tablets by mouth daily with breakfast. - busPIRone (BUSPAR) 15 mg tablet Take 1 tablet by mouth three times a day. - losartan (COZAAR) 100 mg tablet Take 100 mg by mouth once daily. - potassium chloride ER (KLOR-CON) 20 mEq tablet Take two tablets by mouth once daily. - omeprazole (PRILOSEC) 40 mg capsule Take 1 capsule by mouth once daily. - oxyCODONE-acetaminophen (PERCOCET) 5-325 mg tablet TAKE 1 TO 2 TABLETS BY MOUTH EVERY 6 HOURS FOR PAIN - furosemide (LASIX) 40 mg tablet Take 1 tablet by mouth once daily. - metoprolol succinate ER (TOPROL XL) 50 mg 24 hr tablet Take 50 mg by mouth once daily. - nitroglycerin sublingual (NITROSTAT) 0.4 mg SL tablet Dissolve 1 tablet under the tongue every 5 minutes as needed for chest pain. - levothyroxine (SYNTHROID) 100 mcg tablet Take 1 tablet by mouth once daily. - empagliflozin (JARDIANCE) 10 mg tablet Take 1 tablet by mouth once daily. Take 1 tablet once daily in the morning - ketotifen fumarate (ALAWAY) 0.025 % (0.035 %) o (more content not included)... [facility]03-04-2025 NoteHNO ID: [id number] Author: PREMA SAMPSON RN Service: ? Author Type: Registered Nurse Type: Progress Notes Filed: 09/13/2024 11:02 Note Text: CD ENROLLMENT Provider Action / FYI: None Patient identified by name and date of . Discussed care with patient. Logistics Manager call note: Health topics discussed today: - Introducation to CDM outreach calls - Healthy at Home phone number provided - Updated ADLs/fall risk/social drivers of health Patient notes that she has upcoming cataract surgery next week Patient denies any concerns/symptoms that require physician attention at this time Program Details Chronic Disease Management Status: Enrolled Effective Dates: 09/13/2024 - present Responsible Staff: Prema Sampson RN Support and Services: Hypertension, Diabetes, Chronic Kidney Disease (CKD), Congestive Heart Failure (CHF) Assessments CDM Assessment Medications: Do you have any questions about taking your medications or which medications you should be taking?: No Do you need any medication refills at this time, including any of the medication you might take only when needed?: No Social: It can be normal to feel anxious or down during a time like this. Would you like to talk to a mental health professional about how you have been feeling?: (did not discuss today) Symptoms: Are you experiencing any new or worsening symptoms that you need to talk about today?: No ADLs Patients can perform the following activities without help: Dressing: Yes Bathing: Yes Doing laundry: Yes Climbing a flight of stairs: Yes Instrumental activities of daily living Do you drive a car?: Yes ( main drives) Do you need help from others to take care of things inside the house, for example: laundry, house cleaning, preparing meals?: Yes Did you have the help you needed?: Yes ( helps) Do you need help from others with errands outside the house, for example: shopping for groceries or clothes, going medical appointments?: Yes Did you have the help you needed?: Yes () Fall Risk One or more falls in the last year:: No Any near falls in the last year?: Yes Advised to use a cane or walker to get around safely:: Yes (uses walker) Feels unsteady when walking:: Yes Steadies self on furniture while walking at home:: No Worried about falling:: Yes SDOH Financial Resource Strain How hard is it for you to pay for the very basics like food, housing, medical care, and heating?: Not hard at all Housing Stability In the last 12 months, was there a time when you were not able to pay the mortgage or rent on time?: No Transportation Needs In the past 12 months, has lack of transportation kept you from medical appointments or from getting medications?: No In the past 12 months, has lack of transportation kept you from meetings, work, or from getting things needed for daily living?: No Food Insecurity Within the past 12 months, you worried that your food would run out before you got the money to buy more.: Never true Within the past 12 months, the food you bought just didn't last and you didn't have money to get more.: Never true Utilities In the past 12 months has the electric, gas, oil, or water company threatened to shut off services in your home?: No Tobacco Use Patient reports that she quit smoking about 43 years ago. Her smoking use included cigarettes. She started smoking about 63 years ago. She has never used smokeless tobacco. Interventions The following were addressed during this visit: - Initial enrollment outreach - Biannual Cardiology visit addressed - Schedule Biannual Cardiology Appointment - HTN lab care gaps addressed - Month 3: Schedule/Order BMP Lab - Diabetes lab care gaps addressed - Month 1: Schedule/Order HbA1C Lab - Month 1: Schedule/Order Lipid Panel Lab - Month 1: Schedule Diabetes Eye Exam - Evaluate for Referral to Pharmacy for Diabetes Medication Management - Evaluate for Referral to Endocrinology ([facility] only) - Month 3: Schedule/Order Urine Albumin Creatinine lab - CKD lab care gaps addressed - Month 3: Schedule/Order Renal Panel Lab Biannually - Intake assessments completed: ADLs, Fall Risk, SDOH - Biannual PCP visit addressed - Annual Medicare Wellness visit addressed - Patient-stated goal addressed (add comment) - Schedule Biannual PCP Appointment - Schedule Annual Wellness Visit - Develop a Patient-Stated Goal (add to [employer] comments) Disposition Based on school bus aide, the following disposition is advised: No action needed Prema Sampson RN September 13, 2024 11:01 [facility]03-04-2025 History of Present illness Narrative* Prema Sampson RN - 09/13/2024 11:01 AM EST [facility] ENROLLMENT Provider Action / FYI: None Patient identified by name and date of . Discussed care with patient. Logistics Manager call note: Health topics discussed today: - Introducation to CDM outreach calls - Healthy at Home phone number provided - Updated ADLs/fall risk/social drivers of health Patient notes that she has upcoming cataract surgery next week Patient denies any concerns/symptoms that require physician attention at this time Program Details Chronic Disease Management Status: Enrolled Effective Dates: 09/13/2024 - present Responsible Staff: Prema Sampson RN Support and Services: Hypertension, Diabetes, Chronic Kidney Disease (CKD), Congestive Heart Failure (CHF) Assessments CDM Assessment Medications: Do you have any questions about taking your medications or which medications you should be taking?:No Do you need any medication refills at this time, including any of the medication you might take only when needed?: No Social: It can be normal to feel anxious or down during a time like this. Would you like to talk to a mental health professional about how you have been feeling?: (did not discuss today) Symptoms: Are you experiencing any new or worsening symptoms that you need to talk about today?: No ADLs Patients can perform the following activities without help: Dressing: Yes Bathing: Yes Doing laundry: Yes Climbing a flight of stairs: Yes Instrumental activities of daily living Do you drive a car?: Yes ( main drives) Do you need help from others to take care of things inside the house, for example: laundry, house cleaning, preparing meals?: Yes Did you have the help you needed?: Yes ( helps) Do you need help from others with errands outside the house, for example: shopping for groceries orclothes, going medical appointments?: Yes Did you have the help you needed?: Yes () Fall Risk One or more falls in the last year:: No Any near falls in the last year?: Yes Advised to use a cane or walker to get around safely:: Yes (uses walker) Feels unsteady when walking:: Yes Steadies self on furniture while walking at home:: No Worried about falling:: Yes SDOH Financial Resource Strain How hard is it for you to pay for the very basics like food, housing, medical care, and heating?: Not hard at all Housing Stability In the last 12 months, was there a time when you were not able to pay the mortgage or rent on time?: No Transportation Needs In the past 12 months, has lack of transportation kept you from medical appointments or from getting medications?: No In the past 12 months, has lack of transportation kept you from meetings, work, or from getting things needed for daily living?: No Food Insecurity Within the past 12 months, you worried that your food would run out before you got the money to buymore.: Never true Within the past 12 months, the food you bought just didn't last and you didn't have money to get more.: Never true Utilities In the past 12 months has the electric, gas, oil, or water company threatened to shut off services in your home?: No Tobacco Use Patient reports that she quit smoking about 43 years ago. Her smoking use included cigarettes. She started smoking about 63 years ago. She has never used smokeless tobacco. Interventions The following were addressed during this visit: - Initial enrollment outreach - Biannual Cardiology visit addressed - Schedule Biannual Cardiology Appointment - HTN lab care gaps addressed - Month 3: Schedule/Order BMP Lab - Diabetes lab care gaps addressed - Month 1: Schedule/Order HbA1C Lab - Month 1: Schedule/Order Lipid Panel Lab - Month 1: Schedule Diabetes Eye Exam - Evaluate for Referral to Pharmacy for Diabetes Medication Management - Evaluate for Referral to Endocrinology ([facility] only) - Month 3: Schedule/Order Urine Albumin Creatinine lab - CKD lab care gaps addressed - Month 3: Schedule/Order Renal Panel Lab Biannually - Intake assessments completed: ADLs, Fall Risk, SDOH - Biannual PCP visit addressed - Annual Medicare Wellness visit addressed - Patient-stated goal addressed (add comment) - Schedule Biannual PCP Appointment - Schedule Annual Wellness Visit - Develop a Patient-Stated Goal (add to [employer] comments) Disposition Based on school bus aide, the following disposition is advised: No action needed Prema Sampson RN September 13, 2024 11:01 AM [facility] NotePatient Outreach ([facility]) ANTONIO GUPTA ([id number]) 1940 F Date Time Provider Department 09/13/24 PREMA SAMPSON During your visit today, we recorded the following information about you: Prema Sampson RN 09/13/2024 11:02 AM Signed CDM ENROLLMENT Provider Action / FYI: None Patient identified by name and date of . Discussed care with patient. Logistics Manager call note: Health topics discussed today: - Introducation to CDM outreach calls - Healthy at Home phone number provided - Updated ADLs/fall risk/social drivers of health Patient notes that she has upcoming cataract surgery next week Patient denies any concerns/symptoms that require physician attention at this time Program Details Chronic Disease Management Status: Enrolled Effective Dates: 09/13/2024 - present Responsible Staff: Prema Sampson RN Support and Services: Hypertension, Diabetes, Chronic Kidney Disease (CKD), Congestive Heart Failure (CHF) Assessments CDM Assessment Medications: Do you have any questions about taking your medications or which medications you should be taking?: No Do you need any medication refills at this time, including any of the medication you might take only when needed?: No Social: It can be normal to feel anxious or down during a time like this. Would you like to talk to a mental health professional about how you have been feeling?: (did not discuss today) Symptoms: Are you experiencing any new or worsening symptoms that you need to talk about today?: No ADLs Patients can perform the following activities without help: Dressing: Yes Bathing: Yes Doing laundry: Yes Climbing a flight of stairs: Yes Instrumental activities of daily living Do you drive a car?: Yes ( main drives) Do you need help from others to take care of things inside the house, for example: laundry, house cleaning, preparing meals?: Yes Did you have the help you needed?: Yes ( helps) Do you need help from others with errands outside the house, for example: shopping for groceries or clothes, going medical appointments?: Yes Did you have the help you needed?: Yes () Fall Risk One or more falls in the last year:: No Any near falls in the last year?: Yes Advised to use a cane or walker to get around safely:: Yes (uses walker) Feels unsteady when walking:: Yes Steadies self on furniture while walking at home:: No Worried about falling:: Yes SDOH Financial Resource Strain How hard is it for you to pay for the very basics like food, housing, medical care, and heating?: Not hard at all Housing Stability In the last 12 months, was there a time when you were not able to pay the mortgage or rent on time?: No Transportation Needs In the past 12 months, has lack of transportation kept you from medical appointments or from getting medications?: No In the past 12 months, has lack of transportation kept you from meetings, work, or from getting things needed for daily living?: No Food Insecurity Within the past 12 months, you worried that your food would run out before you got the money to buy more.: Never true Within the past 12 months, the food you bought just didn't last and you didn't have money to get more.: Never true Utilities In the past 12 months has the electric, gas, oil, or water company threatened to shut off services in your home?: No Tobacco Use Patient reports that she quit smoking about 43 years ago. Her smoking use included cigarettes. She started smoking about 63 years ago. She has never used smokeless tobacco. Interventions The following were addressed during this visit: - Initial enrollment outreach - Biannual Cardiology visit addressed - Schedule Biannual Cardiology Appointment - HTN lab care gaps addressed - Month 3: Schedule/Order BMP Lab - Diabetes lab care gaps addressed - Month 1: Schedule/Order HbA1C Lab - Month 1: Schedule/Order Lipid Panel Lab - Month 1: Schedule Diabetes Eye Exam - Evaluate for Referral to Pharmacy for Diabetes Medication Management - Evaluate for Referral to Endocrinology ([facility] only) - Month 3: Schedule/Order Urine Albumin Creatinine lab - CKD lab care gaps addressed - Month 3: Schedule/Order Renal Panel Lab Biannually - Intake assessments completed: ADLs, Fall Risk, SDOH - Biannual PCP visit addressed - Annual Medicare Wellness visit addressed - Patient-stated goal addressed (add comment) - Schedule Biannual PCP Appointment - Schedule Annual Wellness Visit - Develop a Patient-Stated Goal (add to [employer] comments) Disposition Based on school bus aide, the following disposition is advised: No action needed Prema Sampson RN September 13, 2024 11:01 AM Allergies As of Date: 09/13/2024 Noted Allergy Reaction POISON FANY 10/17/2005 SULFA (SULFONAMIDE ANTIBIOTICS) 10/17/2005 4 - Hives Date Review (more content not included)...[facility]01-31-2025 Note* Addendum Note - Carlos House APRN.CNP - 08/12/2024 1:27 PM ESTAddended by: CARLOS HOUSE on: 08/12/2024 01:27 PM Modules accepted: Level of Service [facility]01-31-2025 Miscellaneous Notes* Addendum Note - Carlos House APRN.CNP - 08/12/2024 1:27 PM ESTAddended by: CARLOS HOUSE on: 08/12/2024 01:27 PM Modules accepted: Level of Service documented in [facility] encounterBu[facility] History of Present illness Narrative* Carlos House APRN.CNP - 08/12/2024 1:00 PM EST Images from the original note were not included. Antonio Gupta is a 84 year old female here for a Medicare wellness visit. Medicare Health Risk Assessment General Health Good Exercise: Minutes/Day 0 min Exercise: Days/Week 0 days Alcohol: Daily Use Never Alcohol: Drinks/Day Patient does not drink Alcohol: 6 or more drinks Never Feel off balance Yes Concerns: Teeth/Dentures No Concerns: Sexual function No Troubled by feelings None of the above Frequency: Eating healthy diet Nearly every day ADLs requiring help Grocery shopping; Walking; Driving Safety precautions in home/vehicle Yes Smoke, vape, chews tobacco No Difficulty hearing Yes Difficulty seeing No Current Providers Specialists: I have reviewed specialist-related care of the patient in the medical record. Medical/Family history review Reviewed and updated problem list, medical/surgical/family/social history, medications, and allergies. Opioid use review Opioid Medications (last 90 days) 08/12/2024 Opioid Medications oxycodone HCl/acetaminophen TAKE 1 TO 2 TABLETS BY MOUTH EVERY 6 HOURS FOR PAIN (5-325 mg tab) Details Patient-reported medication Prescribed No opioid use on file in the last 90 days Does patient have risk factors for opioid abuse? No Pain overview Current pain concerns and treatment plan reviewed. Patient under the care of a specialist. Anxiety/Depression screening PHQ-2 Score: 0 (Lower risk for depression) Recommendation: continuing current treatment plan Cognitive screening Mini Cog Score: 4 Cognitive screening reviewed and No further action needed (score 3-5). Functional Observation Was the patient's Timed Up & Go test unsteady or >= 12 seconds? No Advance Care Planning Surrogate decision maker and/or advance care plan documented Measurements BP 128/86 Pulse 80 Resp 18 Wt 85.7 kg (189 lb) SpO2 96% BMI 30.51 kg/m Vision Screening: Follows with optometry/ophthalmology Assessment/Plan Medicare annual wellness visit, subsequent (Z00.00) - Counseled on healthy diet and regular exercise - Fall avoidance information provided - Personalized prevention plan provided Carlos House APRN.HOTEL SALES MANAGER Additional Concerns The following concerns were also discussed with the patient: Patient presenting today for routine follow-up. She had labs completed prior to her visit. We will review. History of MGUS. Previously following with hematology. She states that she no longer follows with them per her choice. She does not wish to know any further diagnosis or investigate any anemia. Her most recent CBC was stable. She follows with us her group for history of CHF, atrial fibrillation, HTN. She is taking her medication as prescribed. Does not check BP at home. She denies any weight gain. She denies any chest pain or shortness of breath. Following with pain management for history of chronic back pain. She is on opioid management. She is taking as prescribed. She follows with them routinely. History of hypothyroidism. She is taking her levothyroxine as prescribed. She denies any side effects. History of diabetes. She is taking her medication as prescribed. She does not check her glucose. Last hemoglobin A1c was 6.5%. We discussed that she does not really need to check glucose at this time. CKD: Following GFR. Stable. On ARB and SGLT2. History of anxiety/depression. Patient states that she is stable on BuSpar and amitriptyline at night. She would like a refill of her amitriptyline. Denies any side effects. Denies suicidal actions. PHYSICAL EXAM BP 128/86 Pulse 80 Resp 18 Wt 85.7 kg (189 lb) SpO2 96% BMI 30.51 kg/m GENERAL: well appearing, alert, in no acute distress Neck: normal, supple, and thyroid normal size, non-tender, without nodularity CARDIOVASCULAR: regular rate and rhythm. No murmur, rubs or gallops. PULMONARY: clear to auscultation, no wheezing, rhonchi, or crackles ABDOMEN: soft, non-tender, non-distended, no masses or organomegaly EXTREMITY: no lower extremity edema. No skin discoloration. Latest Ref Rng 08/08/2024 Protein, Total 6.3 - 8.0 g/dL 8.4 (H) Albumin 3.9 - 4.9 g/dL 4.0 Calcium 8.5 - 10.2 mg/dL 9.6 Bilirubin, Total 0.2 - 1.3 mg/dL 0.6 Alkaline Phosphatase 34 - 123 U/L 150 (H) AST 13 - 35 U/L 18 ALT 7 - 38 U/L 11 Glucose 74 - 99 mg/dL 99 BUN 7 - 21 mg/dL 18 Creatinine 0.58 - 0.96 mg/dL 1.20 (H) Sodium 136 - 144 mmol/L 132 (L) Potassium 3.7 - 5.1 mmol/L 4.0 Chloride 98 - 107 mmol/L 95 (L) CO2 22 - 30 mmol/L 24 Anion Gap 8 - 15 mmol/L 13 eGFR >=60 mL/min/1.73m 44 (L) WBC 3.70 - 11.00 k/uL 7.25 RBC 3.90 - 5.20 m/uL 4.12 Hemoglobin 11.5 - 15.5 g/dL 11.8 Hematocrit 36.0 - 46.0 % 38.7 MCV 80.0 - 100.0 fL 93.9 MCH 26.0 - 34.0 pg 28.6 MCHC 30.5 - 36.0 g/dL 30.5 RDW-CV 11.5 - 15.0 % 15.6 (H) Platelet Count 150 - 400 k/uL 321 MPV 9.0 - 12.7 fL 10.5 Absolute nRBC <0.01 k/uL <0.01 Cholesterol, Total <200 mg/dL 140 Triglyceride <150 mg/dL 120 HDL Cholesterol >39 mg/dL 35 (L) Non HDL Cholesterol <130 mg/dL 105 Fasting Time hrs 12 VLDL Cholesterol <30 mg/dL 24 TC:HDL Ratio <5.10 4.00 LDL Cholesterol <100 mg/dL 81 LDL:HDL Ratio <2.54 2.31 Hemoglobin A1C 4.3 - 5.6 % 6.5 (H) Estimated Average Glucose mg/dL 140 TSH 0.270 - 4.200 mIU/L 3.330 ASSESSMENT/PLAN: 1. Medicare annual wellness visit, subsequent - ICD9: V70.0, ICD10: Z00.00 (primary diagnosis) 2. Chronic diastolic CHF (congestive heart failure) (HCC) - ICD9: 428.32, 428.0, ICD10: I50.32 -Stable, continue medications, continue following with [facility] 3. Hyperlipidemia, unspecified hyperlipidemia type - ICD9: 272.4, ICD10: E78.5 - Controlled - Continue current medications - Counseled on healthy diet and regular exercise - LIPID PANEL BASIC 4. Essential hypertension, benign - ICD9: 401.1, ICD10: I10 - Controlled - Continue current medications - Recommend home blood pressure monitoring, to bring results to next visit - Encouraged sodium restriction, DASH or Mediterranean diet - Recommend regular aerobic exercise - COMPREHENSIVE METABOLIC PANEL - COMPLETE BLOOD COUNT AND DIFFERENTIAL 5. Paroxysmal atrial fibrillation (HCC) - ICD9: 427.31, ICD10: I48.0 -Stable, continue medications, continue following with [facility] 6. MGUS (monoclonal gammopathy of unknown significance) - ICD9: 273.1, ICD10: D47.2 -Patient previously following with hematology/oncology. Patient states that she no longer wishes topursue. 7. Type 2 diabetes mellitus with other diabetic kidney complication, without long-term current use of insulin (HCC) - ICD9: 250.40, ICD10: E11.29 - Controlled - Continue current medications - COMPREHENSIVE METABOLIC PANEL - HEMOGLOBIN A1C - COMPLETE BLOOD COUNT AND DIFFERENTIAL - LIPID PANEL BASIC 8. Depression, unspecified depression type - ICD9: 311, ICD10: F32.A -Stable, continue amitriptyline as prescribed - AMITRIPTYLINE 50 MG TABLET 9. Hypothyroidism, unspecified type - ICD9: 244.9, ICD10: E03.9 - Instructed patient on importance of taking on an empty stomach either first thing in the morning or at bedtime. - continue current dose of Synthroid 0.100 mg - THYROID STIMULATING HORMONE 10. Stage 3a chronic kidney disease (HCC) - ICD9: 585.3, ICD10: N18.31 - eGFR: 44 Stable - ACEi/ARB prescribed: Yes - SGLT2i prescribed: empagliflozin Carlos House APRN.DICK documented in this encounterBu[facility]-2025 NoteHNO ID: [id number] Author: CARLOS HOUSE APRN.DICK Service: ? Author Type: Nurse Practitioner Type: Progress Notes Filed: 08/12/2024 13:27 Note Text: Antonio Gupta is a 84 year old female here for a Medicare wellness visit. Medicare Health Risk Assessment General Health Good Exercise: Minutes/Day 0 min Exercise: Days/Week 0 days Alcohol: Daily Use Never Alcohol: Drinks/Day Patient does not drink Alcohol: 6 or more drinks Never Feel off balance Yes Concerns: Teeth/Dentures No Concerns: Sexual function No Troubled by feelings None of the above Frequency: Eating healthy diet Nearly every day ADLs requiring help Grocery shopping; Walking; Driving Safety precautions in home/vehicle Yes Smoke, vape, chews tobacco No Difficulty hearing Yes Difficulty seeing No Current Providers Specialists: I have reviewed specialist-related care of the patient in the medical record. Medical/Family history review Reviewed and updated problem list, medical/surgical/family/social history, medications, and allergies. Opioid use review Opioid Medications (last 90 days) 08/12/2024 Opioid Medications oxycodone HCl/acetaminophen TAKE 1 TO 2 TABLETS BY MOUTH EVERY 6 HOURS FOR PAIN (5-325 mg tab) Details Patient-reported medication Prescribed No opioid use on file in the last 90 days Does patient have risk factors for opioid abuse? No Pain overview Current pain concerns and treatment plan reviewed. Patient under the care of a specialist. Anxiety/Depression screening PHQ-2 Score: 0 (Lower risk for depression) Recommendation: continuing current treatment plan Cognitive screening Mini Cog Score: 4 Cognitive screening reviewed and No further action needed (score 3-5). Functional Observation Was the patient's Timed Up AND Go test unsteady or >= 12 seconds? No Advance Care Planning Surrogate decision maker and/or advance care plan documented Measurements BP 128/86 Pulse 80 Resp 18 Wt 85.7 kg (189 lb) SpO2 96% BMI 30.51 kg/m? Vision Screening: Follows with optometry/ophthalmology Assessment/Plan Medicare annual wellness visit, subsequent (Z00.00) - Counseled on healthy diet and regular exercise - Fall avoidance information provided - Personalized prevention plan provided Carlos House APRN.HOTEL SALES MANAGER Additional Concerns The following concerns were also discussed with the patient: Patient presenting today for routine follow-up. She had labs completed prior to her visit. We will review. History of MGUS. Previously following with hematology. She states that she no longer follows with them per her choice. She does not wish to know any further diagnosis or investigate any anemia. Her most recent CBC was stable. She follows with us her group for history of CHF, atrial fibrillation, HTN. She is taking her medication as prescribed. Does not check BP at home. She denies any weight gain. She denies any chest pain or shortness of breath. Following with pain management for history of chronic back pain. She is on opioid management. She is taking as prescribed. She follows with them routinely. History of hypothyroidism. She is taking her levothyroxine as prescribed. She denies any side effects. History of diabetes. She is taking her medication as prescribed. She does not check her glucose. Last hemoglobin A1c was 6.5%. We discussed that she does not really need to check glucose at this time. CKD: Following GFR. Stable. On ARB and SGLT2. History of anxiety/depression. Patient states that she is stable on BuSpar and amitriptyline at night. She would like a refill of her amitriptyline. Denies any side effects. Denies suicidal actions. PHYSICAL EXAM BP 128/86 Pulse 80 Resp 18 Wt 85.7 kg (189 lb) SpO2 96% BMI 30.51 kg/m? GENERAL: well appearing, alert, in no acute distress Neck: normal, supple, and thyroid normal size, non-tender, without nodularity CARDIOVASCULAR: regular rate and rhythm. No murmur, rubs or gallops. PULMONARY: clear to auscultation, no wheezing, rhonchi, or crackles ABDOMEN: soft, non-tender, non-distended, no masses or organomegaly EXTREMITY: no lower extremity edema. No skin discoloration. Latest Ref Rng 08/08/2024 Protein, Total 6.3 - 8.0 g/dL 8.4 (H) Albumin 3.9 - 4.9 g/dL 4.0 Calcium 8.5 - 10.2 mg/dL 9.6 Bilirubin, Total 0.2 - 1.3 mg/dL 0.6 Alkaline Phosphatase 34 - 123 U/L 150 (H) AST 13 - 35 U/L 18 ALT 7 - 38 U/L 11 Glucose 74 - 99 mg/dL 99 BUN 7 - 21 mg/dL 18 Creatinine 0.58 - 0.96 mg/dL 1.20 (H) Sodium 136 - 144 mmol/L 132 (L) Potassium 3.7 - 5.1 mmol/L 4.0 Chloride 98 - 107 mmol/L 95 (L) CO2 22 - 30 mmol/L 24 Anion Gap 8 - 15 mmol/L 13 eGFR >=60 mL/min/1.73m? 44 (L) WBC 3.70 - 11.00 k/uL 7.25 RBC 3.90 - 5.20 m/uL 4.12 Hemoglobin 11.5 - 15.5 g/dL 11.8 Hematocrit 36.0 - 46.0 % 38.7 MCV 80.0 - 100.0 fL 93.9 MCH 26.0 - 34.0 pg 28.6 MCHC 30.5 - 36.0 g/dL 30.5 RDW-CV 11.5 - 15.0 % 15.6 (H) Platelet C (more content not included)...[facility]11-12-2024 Telephone encounter Note* Telephone Encounter - Kandi Woody MA - 05/24/2024 3:01 PM EST Faxed. Kandi Woody MA [facility]11-12-2024 Miscellaneous Notes* Telephone Encounter - Kandi Woody MA - 05/24/2024 3:01 PM EST Faxed. Kandi Woody MA * Telephone Encounter - Kandi Woody MA - 05/24/2024 1:20 PM EST Type of letter/form/fax request - Overnight Pulse Ox order Form received from fax on 1 floor and placed on MD desk (Dr. Rocha) for completion. [place] [facility] [place] [phone]. [employer] requesting PCP sign order to complete an overnight pulse oximetry report on room air for pt. Route to [place] when form completed for processing documented in this encounterBu[facility]11-12-2024 Telephone encounter Note * Telephone Encounter - Kandi Woody MA - 05/24/2024 1:20 PM EST Type of letter/form/fax request - Overnight Pulse Ox order Form received from fax on 1 floor and placed on MD desk (Dr. Rocha) for completion. Completed form [place] [facility] [place] [phone]. [employer] requesting PCP sign order to complete an overnight pulse oximetry report on room air for pt. Route to [place] when form completed for processing [facility]11-04-[facility] Telephone encounter Note* Telephone Encounter - Victor M Rocha MD - 05/16/2024 2:28 PM EST Noted Victor M Rocha MD [facility]11-04-2024 Miscellaneous Notes* Telephone Encounter - Victor M Rcoha MD - 05/16/2024 2:28 PM EST Noted Victor M Rocha MD * Telephone Encounter - Gisselle Banda LPN - 05/16/2024 12:18 PM EST PATIENT calling stating that she finished a pill bottle and threw away the empty bottle and does not know what med it was. PATIENT is worried that she is needing to take this med but delong not know which it is. This nurse went over her hospital meds and current meds in chart and her meds that she hasat home. We are not sure what meds that it maybe. Advised patient to call her concrete block layer to go over her meds from them to see if it maybe their meds. Patient will call back if needed. Gisselle Banda LPN documented in this encounterBucyrus [facility] Hospital11-04-2024 Telephone encounter Note * Telephone Encounter - Gisselle Banda LPN - 05/16/2024 12:18 PM EST PATIENT calling stating that she finished a pill bottle and threw away the empty bottle and does not know what med it was. PATIENT is worried that she is needing to take this med but delong not know which it is. This nurse went over her hospital meds and current meds in chart and her meds that she hasat home. We are not sure what meds that it maybe. Advised patient to call her concrete block layer to go over her meds from them to see if it maybe their meds. Patient will call back if needed. Gisselle Banda LPN [facility]11-04-[facility] Telephone encounter Note* Telephone Encounter - Kandi Woody MA - 05/16/2024 9:41 AM EST Faxed. Kandi Woody MA [facility]11-04-2024 Miscellaneous Notes* Telephone Encounter - Kandi Woody MA - 05/16/2024 9:41 AM EST Faxed. Kandi Woody MA * Telephone Encounter - Victor M Rocha MD - 05/13/2024 5:28 PM EDT Form done Victor M Rocha MD * Telephone Encounter - Cara Herring MA - 05/13/2024 2:31 PM EDT Type of form: Stop Anticoagulant prior to to pain management procedure. [facility]. Pt takes Xarelto daily, asking to be off two days prior to procedure. Form received via fax When form is completed, Fax form to [phone] Form has been forwarded to Physician Desk: Dr. Rocha. Cara Herring MA documented in this encounterBu[facility]rus [facility]11-01-2024 Telephone encounter Note * Telephone Encounter - Victor M Rocha MD - 05/13/2024 5:28 PM EDT Form done Victor M Rocha MD [facility]11-01-2024 Telephone encounter Note* Telephone Encounter - Cara Herring MA - 05/13/2024 2:31 PM EDT Type of form: Stop Anticoagulant prior to to pain management procedure. [facility]. Pt takes Xarelto daily, asking to be off two days prior to procedure. Form received via fax When form is completed, Fax form to [phone] Form has been forwarded to Physician Desk: Dr. Rocha. Cara Herring MA [facility]10-25-2024 Telephone encounter Note* Telephone Encounter - Victor M Rocha MD - 05/06/2024 3:45 PM EDT OK to refill as ordered Victor M Rocha MD [facility]10-25-2024 Miscellaneous Notes* Telephone Encounter - Victor M Rocha MD - 05/06/2024 3:45 PM EDT OK to refill as ordered Victor M Rocha MD * Telephone Encounter - Elana Key RN - 05/06/2024 3:26 PM EDT Recent Office Visits - This Specialty 04/06/2024 Hospital discharge follow-up Family Medicine Yovana Kumar, DEANNA.HOTEL SALES MANAGER 02/01/2024 Type 2 diabetes mellitus with other diabetic kidney complication, without long-term current use of insulin ([facility]) Family Medicine Victor M Cornejo MD 12/24/2023 Chronic diastolic CHF (congestive heart failure) ([facility]) Family Medicine Victor M Cornejo MD NOV: Visit date not found Last 1 Encounter BP Readings: Date: BP: 04/06/2024 127/77 Hemoglobin A1C (%) Date Value 01/27/2024 6.8 03/22/2021 8.3 Orders Pended Elana Key RN * Telephone Encounter - Prema Blanco - 05/06/2024 1:53 PM EDT Prescription Refill Information The patient has been identified by name and date of : Yes Caregiver verified no other encounters exist for this prescription request: Yes Caregiver confirmed with patient/requestor that no other refills are due, in the near future, with this provider at this time: Yes The last office visit in the department: 04-06-24 Does the patient have a future office visit with this provider/department: Yes Requested Prescriptions Pending Prescriptions Disp Refills glimepiride (AMARYL) 4 mg tablet 90 tablet 3 Sig: Take 0.5 tablets by mouth daily with breakfast. Prema Peraza May 06, 2024 1:54 PM documented in this encounterBucyrus [facility] Hospital10-25-2024 Telephone encounter Note * Telephone Encounter - Elana Key RN - 05/06/2024 3:26 PM EDT Recent Office Visits - This Specialty 04/06/2024 Hospital discharge follow-up Family Medicine Yovana Kumar, DEANNA.HOTEL SALES MANAGER 02/01/2024 Type 2 diabetes mellitus with other diabetic kidney complication, without long-term current use of insulin ([facility]) Family Medicine Victor M Cornejo MD 12/24/2023 Chronic diastolic CHF (congestive heart failure) ([facility]) Family Medicine Victor M Cornejo MD NOV: Visit date not found Last 1 Encounter BP Readings: Date: BP: 04/06/2024 127/77 Hemoglobin A1C (%) Date Value 01/27/2024 6.8 03/22/2021 8.3 Orders Pended Elana Key RN [facility]10-25-2024 Telephone encounter Note* Telephone Encounter - Prema Blanco - 05/06/2024 1:53 PM EDT Prescription Refill Information The patient has been identified by name and date of : Yes Caregiver verified no other encounters exist for this prescription request: Yes Caregiver confirmed with patient/requestor that no other refills are due, in the near future, with this provider at this time: Yes The last office visit in the department: 04-06-24 Does the patient have a future office visit with this provider/department: Yes Requested Prescriptions Pending Prescriptions Disp Refills glimepiride (AMARYL) 4 mg tablet 90 tablet 3 Sig: Take 0.5 tablets by mouth daily with breakfast. Prema Mitchell Owen Peraza May 06, 2024 1:54 PM [facility] Work Phone: [phone]) 773-891810-10-2024 NoteHNO ID: [id number] Author: IVELISSE LUIS RN Service: ? Author Type: Registered Nurse Type: Progress Notes Filed: 04/21/2024 11:38 Note Text: Transitional Care Management (TCM) Follow-Up Note PCP Update / Actionable Items N/A - No specialty updates needed Patient Source: [facility] ([facility]) Discharge Outreach Summary: Pt states she had her pacemaker placement 04/11, had f/u with card. and doing well. Questioned any weight gain or LE swelling, pt states over the last several months she has lost up to 10lbs. She was to f/u with oncology for biopsy and PET scan and has decided she does not want to continue with further testing. She is eating well, taking Oxycodone as rx by pain management 2-3 times a day and rotating with Tylenol. Patient discharged from [facility] Discharge date: 03/29/24 Admitted for: CHF /SOB Readmission Risk: n/a Value-Based Contract: ACO Contact: Contact made with patient: Yes Spoke to: Patient Validation: Validated the person spoken to is actively involved in the patient's care. The patient was identified by Name and Date of . I'd like to get an update on how you're doing since our last phone call. Is now a good time to talk? Yes Symptoms: Are you feeling about the same, better or worse since leaving the hospital? Better Weekly Outreach: 2nd Outreach Medications: Do you have any questions about taking your medications, including which medications you should be on, or do you need refills on your medications? No Patient Questions / Concerns: Do you have any questions related to your discharge? Yes Discussed the patient's questions and/or concerns. If applicable, the appropriate Team/Provider updated in FYI box. Appointment / TCM Follow-Up: Have you had a follow-up visit with your Primary Care Provider or Specialist since you were discharged? Yes Do you need any assistance with scheduling or changing your follow-up appointments? Patient already has an appointment scheduled SDOH: Has Food and Housing been addressed in Social Determinants in the past 3 months? No- Check Social Determinants to ensure Food and Housing have been addressed in the past 3 months. If longer than 3 months or not completed update Social Determinants on story board. Education Heart Failure Education Provided Following a low sodium diet Fluid restrictions Targets addressed / completed during outreach: N/A Outreach Outcome: Continue TCM Outreach for remainder of 30 days Care Management partners utilized: N/A Ivelisse Luis RN April 21, 2024 11:24 [facility]10-10-2024 History of Present illness Narrative* Ivelisse Luis RN - 04/21/2024 11:20 AM EDT Transitional Care Management (TCM) Follow-Up Note PCP Update / Actionable Items N/A - No specialty updates needed Patient Source: [facility] ([facility]) Discharge Outreach Summary: Pt states she had her pacemaker placement 04/11, had f/u with card. and doing well. Questioned any weight gain or LE swelling, pt states over the last several months she has lost up to 10lbs. She was to f/u with oncology for biopsy and PET scan and has decided she does not want to continue with further testing. She is eating well, taking Oxycodone as rx by pain management 2-3 times a day and rotating with Tylenol. Patient discharged from [facility] Discharge date: 03/29/24 Admitted for: CHF /SOB Readmission Risk: n/a Value-Based Contract: ACO Contact: Contact made with patient: Yes Spoke to: Patient Validation: Validated the person spoken to is actively involved in the patient's care. The patient was identified by Name and Date of . I'd like to get an update on how you're doing since our last phone call. Is now a good time to talk? Yes Symptoms: Are you feeling about the same, better or worse since leaving the hospital? Better Weekly Outreach: 2nd Outreach Medications: Do you have any questions about taking your medications, including which medications you should be on, or do you need refills on your medications? No Patient Questions / Concerns: Do you have any questions related to your discharge? Yes Discussed the patient's questions and/or concerns. If applicable, the appropriate Team/Provider updated in FYI box. Appointment / TCM Follow-Up: Have you had a follow-up visit with your Primary Care Provider or Specialist since you were discharged? Yes Do you need any assistance with scheduling or changing your follow-up appointments? Patient alreadyhas an appointment scheduled SDOH: Has Food and Housing been addressed in Social Determinants in the past 3 months? No- Check Social Determinants to ensure Food and Housing have been addressed in the past 3 months. If longer than 3 months or not completed update Social Determinants on story board. Education Heart Failure Education Provided Following a low sodium diet Fluid restrictions Targets addressed / completed during outreach: N/A Outreach Outcome: Continue TCM Outreach for remainder of 30 days Care Management partners utilized: N/A Ivelisse Luis RN April 21, 2024 11:24 AM documented in this encounterBucyrus [facility]10-10-2024 NotePatient Outreach ([facility]) ANTONIO GUPTA ([id number]) 1940 F Date Time Provider Department 04/21/24 IVELISSE LUIS [facility] During your visit today, we recorded the following information about you: Ivelisse Luis RN 04/21/2024 11:38 AM Signed Transitional Care Management (TCM) Follow-Up Note PCP Update / Actionable Items N/A - No specialty updates needed Patient Source: [facility] ([facility]) Discharge Outreach Summary: Pt states she had her pacemaker placement 04/11, had f/u with card. and doing well. Questioned any weight gain or LE swelling, pt states over the last several months she has lost up to 10lbs. She was to f/u with oncology for biopsy and PET scan and has decided she does not want to continue with further testing. She is eating well, taking Oxycodone as rx by pain management 2-3 times a day and rotating with Tylenol. Patient discharged from [facility] Discharge date: 03/29/24 Admitted for: CHF /SOB Readmission Risk: n/a Value-Based Contract: ACO Contact: Contact made with patient: Yes Spoke to: Patient Validation: Validated the person spoken to is actively involved in the patient's care. The patient was identified by Name and Date of . I'd like to get an update on how you're doing since our last phone call. Is now a good time to talk? Yes Symptoms: Are you feeling about the same, better or worse since leaving the hospital? Better Weekly Outreach: 2nd Outreach Medications: Do you have any questions about taking your medications, including which medications you should be on, or do you need refills on your medications? No Patient Questions / Concerns: Do you have any questions related to your discharge? Yes Discussed the patient's questions and/or concerns. If applicable, the appropriate Team/Provider updated in FYI box. Appointment / TCM Follow-Up: Have you had a follow-up visit with your Primary Care Provider or Specialist since you were discharged? Yes Do you need any assistance with scheduling or changing your follow-up appointments? Patient already has an appointment scheduled SDOH: Has Food and Housing been addressed in Social Determinants in the past 3 months? No- Check Social Determinants to ensure Food and Housing have been addressed in the past 3 months. If longer than 3 months or not completed update Social Determinants on story board. Education Heart Failure Education Provided Following a low sodium diet Fluid restrictions Targets addressed / completed during outreach: N/A Outreach Outcome: Continue TCM Outreach for remainder of 30 days Care Management partners utilized: N/A Ivelisse Luis RN April 21, 2024 11:24 AM Allergies As of Date: 04/21/2024 Noted Allergy Reaction POISON FANY 10/17/2005 SULFA (SULFONAMIDE ANTIBIOTICS) 10/17/2005 4 - Hives Date Reviewed: 04/06/2024 Reviewed by: Jasmina Ramos LPN - Fully Assessed Prescriptions as of 04/21/2024 - busPIRone (BUSPAR) 15 mg tablet Take 1 tablet by mouth three times a day. - losartan (COZAAR) 100 mg tablet Take 100 mg by mouth once daily. - potassium chloride ER (KLOR-CON) 20 mEq tablet Take two tablets by mouth once daily. - omeprazole (PRILOSEC) 40 mg capsule Take 1 capsule by mouth once daily. - oxyCODONE-acetaminophen (PERCOCET) 5-325 mg tablet TAKE 1 TO 2 TABLETS BY MOUTH EVERY 6 HOURS FOR PAIN - furosemide (LASIX) 40 mg tablet Take 1 tablet by mouth once daily. - glimepiride (AMARYL) 4 mg tablet Take 0.5 tablets by mouth daily with breakfast. - metoprolol succinate ER (TOPROL XL) 50 mg 24 hr tablet Take 50 mg by mouth once daily. - nitroglycerin sublingual (NITROSTAT) 0.4 mg SL tablet Dissolve 1 tablet under the tongue every 5 minutes as needed for chest pain. - tiZANidine (ZANAFLEX) 4 mg tablet Take 1 tablet by mouth every 8 hours as needed (muscle spasms). - levothyroxine (SYNTHROID) 100 mcg tablet Take 1 tablet by mouth once daily. - empagliflozin (JARDIANCE) 10 mg tablet Take 1 tablet by mouth once daily. Take 1 tablet once daily in the morning - amitriptyline (ELAVIL) 50 mg tablet Take 1 tablet by mouth daily at bedtime. - ketotifen fumarate (ALAWAY) 0.025 % (0.035 %) ophthalmic solution Use 1 Drop in both eyes twice daily. - blood sugar diagnostic (ONETOUCH VERIO TEST STRIPS) test strip TEST BLOOD SUGAR ONCE DAILY - lancets (ONE TOUCH DELICA) 33 gauge Test blood sugar(s) 1 daily. Dx: Other DM Code E 11.29 Insulin: No - amLODIPine (NORVASC) 10 mg tablet Take 1 tablet by mouth once daily. - rivaroxaban (XARELTO) 20 mg tablet Take 20 mg by mouth daily with dinner. - simvastatin (ZOCOR) 20 mg tablet Take 20 mg by mouth daily at bedtime. - acetaminophen (TYLENOL EXTRA STRENGTH) 500 mg ORAL tablet Take 2 tablets by mouth every 4 hours as needed. Meds Comments as of 04/24/2022: Using [employer] (more content not included)...[facility]10-04-2024 Telephone encounter Note* Telephone Encounter - Carlos House APRN.HOTEL SALES MANAGER - 04/15/2024 9:06 AM EDT The following approved medication requests have been transmitted electronically. Requested Prescriptions Pending Prescriptions Disp Refills busPIRone (BUSPAR) 15 mg tablet 270 tablet 3 Sig: Take 1 tablet by mouth three times a day. Carlos House APRN.CNP [facility]10-04-2024 Miscellaneous Notes* Telephone Encounter - Carlos House APRN.CNP - 04/15/2024 9:06 AM EDT The following approved medication requests have been transmitted electronically. Requested Prescriptions Pending Prescriptions Disp Refills busPIRone (BUSPAR) 15 mg tablet 270 tablet 3 Sig: Take 1 tablet by mouth three times a day. Carlos House APRN.CNP * Telephone Encounter - Shara Cruz RN - 04/15/2024 9:02 AM EDT The patient has been identified by name and date of : Yes Caregiver verified no other encounters exist for this prescription request: Yes Caregiver confirmed with patient/requestor that no other refills are due, in the near future, with this provider at this time: Yes The last office visit in the department: 04/06/2024 Does the patient have a future office visit with this provider/department: Yes 08/05/2024 Requested Prescriptions Pending Prescriptions Disp Refills busPIRone (BUSPAR) 15 mg tablet 270 tablet 3 Sig: Take 1 tablet by mouth three times a day. Shara Cruz RN April 15, 2024 9:03 AM documented in this encounterBucyrus [facility] Hospital10-04-2024 Telephone encounter Note * Telephone Encounter - Shara Cruz RN - 04/15/2024 9:02 AM EDT The patient has been identified by name and date of : Yes Caregiver verified no other encounters exist for this prescription request: Yes Caregiver confirmed with patient/requestor that no other refills are due, in the near future, with this provider at this time: Yes The last office visit in the department: 04/06/2024 Does the patient have a future office visit with this provider/department: Yes 08/05/2024 Requested Prescriptions Pending Prescriptions Disp Refills busPIRone (BUSPAR) 15 mg tablet 270 tablet 3 Sig: Take 1 tablet by mouth three times a day. Shara Cruz RN April 15, 2024 9:03 AM [facility]09-26-2024 NoteHNO ID: [id number] Author: IVELISSE LUIS RN Service: ? Author Type: Registered Nurse Type: Progress Notes Filed: 04/07/2024 13:12 Note Text: Transitional Care Management (TCM) Follow-Up Note PCP Update / Actionable Items N/A - No specialty updates needed Patient Source: [facility]Kp[facility] (OON) Discharge Outreach Summary: Pt reports is has been a busy week with follow up appts and has been scheduled 04/11 to have her pacemaker replaced . TCM will continue to follow. Patient discharged from [facility] Discharge date: 03/29/24 Admitted for: CHF /SOB Readmission Risk: n/a Value-Based Contract: ACO Copied from Breadcrumbtracking: Narrative: Patient is a 83-year-old woman who has history of compression fracture and status post kyphoplasty beginning of this week, coronary artery disease with stent placement, congestive heart failure, sick sinus syndrome, longstanding persistent atrial fibrillation, essential hypertension, hyperlipidemia, secondary pulmonary hypertension and multiple myeloma. She arrives from Joshua Baker's office. She was hypoxic. She appears cyanotic. She has conversationaldyspnea. Patient is not a good informant. She has history of monoclonalopathy that she was seen by Dr. Oneill. Patient states she cannot lie flat. She denies PND. She denies chest discomfort. Patient had recent total body scan which revealed [address] Joshua Baker. Once patient is stabilized will need to work these up. Contact: Contact made with patient: Yes Spoke to: Patient Validation: Validated the person spoken to is actively involved in the patient's care. The patient was identified by Name and Date of . I'd like to get an update on how you're doing since our last phone call. Is now a good time to talk? Yes Symptoms: Are you feeling about the same, better or worse since leaving the hospital? Same Weekly Outreach: 1st Outreach Medications: Do you have any questions about taking your medications, including which medications you should be on, or do you need refills on your medications? No Patient Questions / Concerns: Do you have any questions related to your discharge? No Appointment / TCM Follow-Up: Have you had a follow-up visit with your Primary Care Provider or Specialist since you were discharged? Yes Do you need any assistance with scheduling or changing your follow-up appointments? Patient already has an appointment scheduled Education N/A Targets addressed / completed during outreach: Patient has TCM appointment with PC within 14 days Outreach Outcome: Continue TCM Outreach for remainder of 30 days Care Management partners utilized: N/A Ivelisse Luis RN April 07, 2024 1:09 [facility]09-26-2024 History of Present illness Narrative* Ivelisse Luis RN - 04/07/2024 12:58 PM EDT Transitional Care Management (TCM) Follow-Up Note PCP Update / Actionable Items N/A - No specialty updates needed Patient Source: Ypr[facility]et[facility]Akgsj[facility] (OON) Discharge Outreach Summary: Pt reports is has been a busy week with follow up appts and has been scheduled 04/11 to have her pacemaker replaced . TCM will continue to follow. Patient discharged from [facility] Discharge date: 03/29/24 Admitted for: CHF /SOB Readmission Risk: n/a Value-Based Contract: ACO Copied from ClinStaaffnc: Narrative: Patient is a 83-year-old woman who has history of compression fracture and status post kyphoplasty beginning of this week, coronary artery disease with stent placement, congestive heart failure, sicksinus syndrome, longstanding persistent atrial fibrillation, essential hypertension, hyperlipidemia, secondary pulmonary hypertension and multiple myeloma. She arrives from Joshua Baker's office. She was hypoxic. She appears cyanotic. She has conversationaldyspnea. Patient is not a good informant. She has history of monoclonalopathy that she was seen by Dr. Oneill. Patient states she cannot lie flat. She denies PND. She denies chest discomfort. Patient had recent total body scan which revealed [address] Joshua Baker. Once patient is stabilized will need to work these up. Contact: Contact made with patient: Yes Spoke to: Patient Validation: Validated the person spoken to is actively involved in the patient's care. The patient was identified by Name and Date of . I'd like to get an update on how you're doing since our last phone call. Is now a good time to talk? Yes Symptoms: Are you feeling about the same, better or worse since leaving the hospital? Same Weekly Outreach: 1st Outreach Medications: Do you have any questions about taking your medications, including which medications you should be on, or do you need refills on your medications? No Patient Questions / Concerns: Do you have any questions related to your discharge? No Appointment / TCM Follow-Up: Have you had a follow-up visit with your Primary Care Provider or Specialist since you were discharged? Yes Do you need any assistance with scheduling or changing your follow-up appointments? Patient alreadyhas an appointment scheduled Education N/A Targets addressed / completed during outreach: Patient has TCM appointment with PC within 14 days Outreach Outcome: Continue TCM Outreach for remainder of 30 days Care Management partners utilized: N/A Ivelisse Luis RN April 07, 2024 1:09 PM [facility] NotePatient Outreach ([facility]) ANTONIO GUPTA ([id number]) 1940 F Date Time Provider Department 04/07/24 IVELISSE LUIS During your visit today, we recorded the following information about you: Ivelisse Luis RN 04/07/2024 1:12 PM Signed Transitional Care Management (TCM) Follow-Up Note PCP Update / Actionable Items N/A - No specialty updates needed Patient Source: [facility]of[facility]Fx[facility] (OON) Discharge Outreach Summary: Pt reports is has been a busy week with follow up appts and has been scheduled 04/11 to have her pacemaker replaced . TCM will continue to follow. Patient discharged from [facility] Discharge date: 03/29/24 Admitted for: CHF /SOB Readmission Risk: n/a Value-Based Contract: ACO Copied from Breadcrumbtracking: Narrative: Patient is a 83-year-old woman who has history of compression fracture and status post kyphoplasty beginning of this week, coronary artery disease with stent placement, congestive heart failure, sick sinus syndrome, longstanding persistent atrial fibrillation, essential hypertension, hyperlipidemia, secondary pulmonary hypertension and multiple myeloma. She arrives from Joshua Baker's office. She was hypoxic. She appears cyanotic. She has conversationaldyspnea. Patient is not a good informant. She has history of monoclonalopathy that she was seen by Dr. Oneill. Patient states she cannot lie flat. She denies PND. She denies chest discomfort. Patient had recent total body scan which revealed [address] Joshua Baker. Once patient is stabilized will need to work these up. Contact: Contact made with patient: Yes Spoke to: Patient Validation: Validated the person spoken to is actively involved in the patient's care. The patient was identified by Name and Date of . I'd like to get an update on how you're doing since our last phone call. Is now a good time to talk? Yes Symptoms: Are you feeling about the same, better or worse since leaving the hospital? Same Weekly Outreach: 1st Outreach Medications: Do you have any questions about taking your medications, including which medications you should be on, or do you need refills on your medications? No Patient Questions / Concerns: Do you have any questions related to your discharge? No Appointment / TCM Follow-Up: Have you had a follow-up visit with your Primary Care Provider or Specialist since you were discharged? Yes Do you need any assistance with scheduling or changing your follow-up appointments? Patient already has an appointment scheduled Education N/A Targets addressed / completed during outreach: Patient has TCM appointment with PC within 14 days Outreach Outcome: Continue TCM Outreach for remainder of 30 days Care Management partners utilized: N/A Ivelisse Luis RN April 07, 2024 1:09 PM Allergies As of Date: 04/07/2024 Noted Allergy Reaction POISON FANY 10/17/2005 SULFA (SULFONAMIDE ANTIBIOTICS) 10/17/2005 4 - Hives Date Reviewed: 04/06/2024 Reviewed by: Jasmina Ramos LPN - Fully Assessed Prescriptions as of 04/07/2024 - losartan (COZAAR) 100 mg tablet Take 100 mg by mouth once daily. - potassium chloride ER (KLOR-CON) 20 mEq tablet Take two tablets by mouth once daily. - omeprazole (PRILOSEC) 40 mg capsule Take 1 capsule by mouth once daily. - oxyCODONE-acetaminophen (PERCOCET) 5-325 mg tablet TAKE 1 TO 2 TABLETS BY MOUTH EVERY 6 HOURS FOR PAIN - furosemide (LASIX) 40 mg tablet Take 1 tablet by mouth once daily. - glimepiride (AMARYL) 4 mg tablet Take 0.5 tablets by mouth daily with breakfast. - metoprolol succinate ER (TOPROL XL) 50 mg 24 hr tablet Take 50 mg by mouth once daily. - nitroglycerin sublingual (NITROSTAT) 0.4 mg SL tablet Dissolve 1 tablet under the tongue every 5 minutes as needed for chest pain. - tiZANidine (ZANAFLEX) 4 mg tablet Take 1 tablet by mouth every 8 hours as needed (muscle spasms). - levothyroxine (SYNTHROID) 100 mcg tablet Take 1 tablet by mouth once daily. - empagliflozin (JARDIANCE) 10 mg tablet Take 1 tablet by mouth once daily. Take 1 tablet once daily in the morning - amitriptyline (ELAVIL) 50 mg tablet Take 1 tablet by mouth daily at bedtime. - busPIRone (BUSPAR) 15 mg tablet Take 1 tablet by mouth three times a day. - ketotifen fumarate (ALAWAY) 0.025 % (0.035 %) ophthalmic solution Use 1 Drop in both eyes twice daily. - blood sugar diagnostic (ONETOUCH VERIO TEST STRIPS) test strip TEST BLOOD SUGAR ONCE DAILY - lancets (ONE TOUCH DELICA) 33 gauge Test blood sugar(s) 1 daily. Dx: Other DM Code E 11.29 Insulin: No - amLODIPine (NORVASC) 10 mg tablet Take 1 tablet by mouth once daily. - rivaroxaban (XARELTO) 20 mg tablet Take 20 mg by mouth daily with dinner. - simvastatin (ZOCOR) 20 mg tablet Take 20 mg by mouth daily at bedtime. - acetaminophen (TYLENOL EXTR (more content not included)...[facility]09-25-2024 Telephone encounter Note* Telephone Encounter - Joshua Baker DO - 04/06/2024 3:10 PM EDT Okay. Thank you. Joshua Baker DO [facility] Work Phone: [phone]) 761-870809-25-2024 Miscellaneous Notes* Telephone Encounter - Joshua Baker DO - 04/06/2024 3:10 PM EDT Okay. Thank you. Joshua Baker DO * Telephone Encounter - Gemma Argueta RN - 04/06/2024 1:58 PM EDT Patient is refusing to schedule the PET scan or any appointment with our office going forward. She will call our office if she changes her mind. Gemma Argueta RN * Telephone Encounter - Joshua Baker DO - 04/05/2024 5:05 PM EDT Would she be willing to at least have the PET scan? Joshua Baker DO * Telephone Encounter - Vesta Jett - 04/05/2024 3:47 PM EDT Patient called stating she does not want any appointments in department. She canceled bmbx and pet scan. She did not want to reschedule. * Telephone Encounter - Shara Delgado - 04/01/2024 9:27 AM EDT Check out comments: -MRI and PET when able -BMBX here -F/U 7-10 days after PET & BMBX scheduled. MRI must be triaged/scheduled at [facility] due to having a pacemaker. Please schedule OV once MRI is scheduled. Shara Delgado documented in [facility] Telephone encounter Note * Telephone Encounter - Gemma Argueta RN - 04/06/2024 1:58 PM EDT Patient is refusing to schedule the PET scan or any appointment with our office going forward. She will call our office if she changes her mind. Gemma Argueta RN [facility]09-25-2024 Instructions* Patient Instructions* oYvana Painter APRN.CNP - 04/06/2024 11:48 AM EDT Continue to take all medication as prescribed. Keep scheduled appointment with cardiology next week Monitor symptoms at home Any worsening symptoms go to ER Follow up as scheduled. documented in this encounterBu[facility]09-[facility]24 History of Present illness Narrative* Yovana Painter APRN.CNP - 04/06/2024 11:40 AM EDT This is a 83 year old female who presents today with: Patient presents with: Follow Up: Hosp follow up for CHF HISTORY OF PRESENT ILLNESS: Antonio Gupta is a 83 year old female. Patient presents with: Follow Up: Hosp follow up for CHF HOSPITAL/ER FOLLOW UP: Reason for visit: SOB, oncologist called, pulse ox was 82% in office. Which facility: [facility] Date of visit: 03/25/2024-03/29/2024 Diagnosis: Acute exacerbation of CHF, heart failure, coronary artery disease Testing done: Chest x-ray reveals congestive heart failure with atelectasis right greater than left. There is a pleural effusion noted on the left. BNP mildly elevated from baseline. Treatment given: Placed on high flow oxygen. Nitroglycerin drip was added. Gave additional Lasix. Troponin normal. Consulted with cardiology. Repeat echo showed ejection fraction 45 to 50%. 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 Planis for bone marrow biopsy and further imaging. Instructed to take potassium 40 mEq daily for low potassium. Stop taking amlodipine. Follow-up withcardiology in 1 to 2 weeks. Current symptoms: Had follow up with Cardiology yesterday, refers that repeat chest xray was normal. Labs repeated yesterday, potassium WNL. Refers that they will be replacing pace maker next week. Still some mild SOB. Taking Lasix 40 mg daily. Refers that she does not want to do any additional testing with Oncology in regards to the monoclonal gammopathy. PAST MEDICAL HISTORY: PAST MEDICAL HISTORY Diagnosis Date Coronary atherosclerosis of unspecified type of vessel, united auburn or graft Stent x 2010 Depressive disorder, not elsewhere classified Diverticulosis of colon (without mention of hemorrhage) Essential hypertension, benign Heart attack (HCC) Other and unspecified hyperlipidemia Palpitations Paroxysmal atrial fibrillation (HCC) PAST SURGICAL HISTORY Procedure Laterality Date APPENDECTOMY COLONOSCOPY FLX DX W/COLLJ SPEC WHEN PFRMD 1998 Colonoscopy repeat 10 years COLONOSCOPY FLX DX W/COLLJ SPEC WHEN PFRMD 05/18/12 Colonoscopy COLSC FLX W/REMOVAL LESION BY HOT BX FORCEPS 09/15/2016 EGD REMOVAL TUMOR POLYP/OTHER LESION SNARE TECH 09/15/2016 HEART SURGERY HX 09/2010 stents inserted LEFT HEART CATH,PERCUTANEOUS 2010 Cardiac cath, L heart PACEMAKER IMPLANT 04/2015 PERC TRANSL COR ANGIO 2010 Percutaneous Transluminal Coronary Angio Status SVT ABLATION W/ EP COMPLETE 03/31/2016 Dr. Buitrago TOTAL ABDOMINAL HYSTERECT W/WO RMVL TUBE OVARY 1985 Hysterectomy, ROSALIO W TRY ATRIOGRM HP ALLERGIES Poison Fany and Sulfa (Sulfonamide Antibiotics) MEDICATIONS Current Outpatient Medications Medication Sig potassium chloride ER (KLOR-CON) 20 mEq tablet Take two tablets by mouth once daily. omeprazole (PRILOSEC) 40 mg capsule Take 1 capsule by mouth once daily. oxyCODONE-acetaminophen (PERCOCET) 5-325 mg tablet TAKE 1 TO 2 TABLETS BY MOUTH EVERY 6 HOURS FOR PAIN furosemide (LASIX) 40 mg tablet Take 1 tablet by mouth once daily. glimepiride (AMARYL) 4 mg tablet Take 0.5 tablets by mouth daily with breakfast. metoprolol succinate ER (TOPROL XL) 50 mg 24 hr tablet Take 50 mg by mouth once daily. nitroglycerin sublingual (NITROSTAT) 0.4 mg SL tablet Dissolve 1 tablet under the tongue every 5 minutes as needed for chest pain. tiZANidine (ZANAFLEX) 4 mg tablet Take 1 tablet by mouth every 8 hours as needed (muscle spasms). levothyroxine (SYNTHROID) 100 mcg tablet Take 1 tablet by mouth once daily. empagliflozin (JARDIANCE) 10 mg tablet Take 1 tablet by mouth once daily. Take 1 tablet once daily in the morning amitriptyline (ELAVIL) 50 mg tablet Take 1 tablet by mouth daily at bedtime. busPIRone (BUSPAR) 15 mg tablet Take 1 tablet by mouth three times a day. ketotifen fumarate (ALAWAY) 0.025 % (0.035 %) ophthalmic solution Use 1 Drop in both eyes twice daily. blood sugar diagnostic (Shippo VERIO TEST STRIPS) test strip TEST BLOOD SUGAR ONCE DAILY lancets (ONE TOUCH DELICA) 33 gauge Test blood sugar(s) 1 daily. Dx: Other DM Code E 11.29 Insulin:No amLODIPine (NORVASC) 10 mg tablet Take 1 tablet by mouth once daily. rivaroxaban (XARELTO) 20 mg tablet Take 20 mg by mouth daily with dinner. simvastatin (ZOCOR) 20 mg tablet Take 20 mg by mouth daily at bedtime. acetaminophen (TYLENOL EXTRA STRENGTH) 500 mg ORAL tablet Take 2 tablets by mouth every 4 hours as needed. No current facility-administered medications for this visit. FAMILY HISTORY Problem Relation Age of Onset Cancer Mother liver other (old age) Father Cancer Sister thyroid Social History Tobacco Use Smoking status: Former Current packs/day: 0.00 Types: Cigarettes Start date: 07/13/1961 Quit date: 07/13/1981 Years since quittin.7 Smokeless tobacco: Never Tobacco comments: Pt smoked one pack every 3 days. Vaping Use Vaping status: Never Used Substance Use Topics Alcohol use: No Drug use: No REVIEW OF SYSTEMS GENERAL: No weight loss, malaise or fevers/chills HEENT: Negative for frequent or significant headaches, No changes in hearing or vision. NECK: Negative for lumps, goiter, pain and significant neck swelling RESPIRATORY: + SOB CARDIOVASCULAR: Negative for chest pain, leg swelling, orthopnea, or palpitations GI: No nausea, vomiting, or diarrhea/constipation. No hematochezia/melena. No heartburn or reflux symptoms. : No history of dysuria, frequency or incontinence MUSCULOSKELETAL: Negative for joint pain or swelling. SKIN: Negative for lesions, rash, and itching ENDOCRINE: Negative for cold or heat intolerance, polyuria, polydipsia and goiter NEURO: No history of headaches, syncope, paralysis, seizures or tremors MOOD: Negative for depression, anxiety, or suicidal ideation. EXAM: BP 127/77 Pulse 90 Resp 16 Wt 83.8 kg (184 lb 11.9 oz) SpO2 95% BMI 29.82 kg/m PHYSICAL EXAM: General Appearance: Well appearing, alert, in no acute distress, well-hydrated, well nourished.. Skin: Skin color, texture, turgor normal, no suspicious rashes or lesions. Head: Normocephalic, no masses, lesions, tenderness or abnormalities. Eyes: Anicteric sclera. Extraocular movements are intact. Lungs: Lungs clear to auscultation. No wheezing, rhonchi, rales. Heart: RRR without murmur, gallop, or rubs. No ectopy. Extremities: No deformities, edema, skin discoloration, clubbing or cyanosis. Good capillary refill. Peripheral Pulses: Normal, Capillary refill <2secs, strong peripheral pulses, Pulses palpable. Neurologic: Gait normal. Sensation grossly intact. ASSESSMENT/PLAN: 1. Hospital discharge follow-up - ICD9: V67.59, ICD10: Z09 (primary diagnosis) - Stable since discharge. 2. Acute on chronic congestive heart failure, unspecified heart failure type (HCC) - ICD9: 428.0, ICD10: I50.9 - Symptoms improving. - Encouraged sodium restriction - Encouraged daily weights - Continue to take current medication. - Keep upcoming appointment with cardiology. 3. MGUS (monoclonal gammopathy of unknown significance) - ICD9: 273.1, ICD10: D47.2 - Denies wanting to continue with diagnostic testing. Instructed that if she changes her mind to follow-up with oncology. Follow-up as scheduled or sooner as needed. Discussed treatment plan and patient voices understanding. Patient's questions answered appropriately. Medications and potential side effects were discussed and patient voices understanding. Yovana Painter APRN.[employer] SALES MANAGER This note was partially generated using Dragon voice recognition system. Note was reviewed for accuracy. There may be minor misspellings or grammar miscues with [employer] voice recognition. documented in this encounterBucyrus [facility] Hospital09-25-2024 NoteHNO ID: [id number] Author: YOVANA PAINTER APRN.CNP Service: ? Author Type: Nurse Practitioner Type: Progress Notes Filed: 04/06/2024 17:02 Note Text: This is a 83 year old female who presents today with: Patient presents with: Follow Up: Hosp follow up for CHF HISTORY OF PRESENT ILLNESS: Antonio Gupta is a 83 year old female. Patient presents with: Follow Up: Hosp follow up for CHF HOSPITAL/ER FOLLOW UP: Reason for visit: SOB, oncologist called, pulse ox was 82% in office. Which facility: [facility] Date of visit: 03/25/2024-03/29/2024 Diagnosis: Acute exacerbation of CHF, heart failure, coronary artery disease Testing done: Chest x-ray reveals congestive heart failure with atelectasis right greater than left. There is a pleural effusion noted on the left. BNP mildly elevated from baseline. Treatment given: Placed on high flow oxygen. Nitroglycerin drip was added. Gave additional Lasix. Troponin normal. Consulted with cardiology. Repeat echo showed ejection fraction 45 to 50%. 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 Plan is for bone marrow biopsy and further imaging. Instructed to take potassium 40 mEq daily for low potassium. Stop taking amlodipine. Follow-up with cardiology in 1 to 2 weeks. Current symptoms: Had follow up with Cardiology yesterday, refers that repeat chest xray was normal. Labs repeated yesterday, potassium WNL. Refers that they will be replacing pace maker next week. Still some mild SOB. Taking Lasix 40 mg daily. Refers that she does not want to do any additional testing with Oncology in regards to the monoclonal gammopathy. PAST MEDICAL HISTORY: PAST MEDICAL HISTORY Diagnosis Date Coronary atherosclerosis of unspecified type of vessel, united a[place] or graft Stent x 2010 Depressive disorder, not elsewhere classified Diverticulosis of colon (without mention of hemorrhage) Essential hypertension, benign Heart attack (HCC) Other and unspecified hyperlipidemia Palpitations Paroxysmal atrial fibrillation (HCC) PAST SURGICAL HISTORY Procedure Laterality Date APPENDECTOMY COLONOSCOPY FLX DX W/COLLJ SPEC WHEN PFRMD 1998 Colonoscopy repeat 10 years COLONOSCOPY FLX DX W/COLLJ SPEC WHEN PFRMD 05/18/12 Colonoscopy COLSC FLX W/REMOVAL LESION BY HOT BX FORCEPS 09/15/2016 EGD REMOVAL TUMOR POLYP/OTHER LESION SNARE TECH 09/15/2016 HEART SURGERY HX 09/2010 stents inserted LEFT HEART CATH,PERCUTANEOUS 2010 Cardiac cath, L heart PACEMAKER IMPLANT 04/2015 PERC TRANSL COR ANGIO 2010 Percutaneous Transluminal Coronary Angio Status SVT ABLATION W/ EP COMPLETE 03/31/2016 Dr. Buitrago TOTAL ABDOMINAL HYSTERECT W/WO RMVL TUBE OVARY 1985 Hysterectomy, ROSALIO W TRY ATRIOGRM HP ALLERGIES Poison Fany and Sulfa (Sulfonamide Antibiotics) MEDICATIONS Current Outpatient Medications Medication Sig potassium chloride ER (KLOR-CON) 20 mEq tablet Take two tablets by mouth once daily. omeprazole (PRILOSEC) 40 mg capsule Take 1 capsule by mouth once daily. oxyCODONE-acetaminophen (PERCOCET) 5-325 mg tablet TAKE 1 TO 2 TABLETS BY MOUTH EVERY 6 HOURS FOR PAIN furosemide (LASIX) 40 mg tablet Take 1 tablet by mouth once daily. glimepiride (AMARYL) 4 mg tablet Take 0.5 tablets by mouth daily with breakfast. metoprolol succinate ER (TOPROL XL) 50 mg 24 hr tablet Take 50 mg by mouth once daily. nitroglycerin sublingual (NITROSTAT) 0.4 mg SL tablet Dissolve 1 tablet under the tongue every 5 minutes as needed for chest pain. tiZANidine (ZANAFLEX) 4 mg tablet Take 1 tablet by mouth every 8 hours as needed (muscle spasms). levothyroxine (SYNTHROID) 100 mcg tablet Take 1 tablet by mouth once daily. empagliflozin (JARDIANCE) 10 mg tablet Take 1 tablet by mouth once daily. Take 1 tablet once daily in the morning amitriptyline (ELAVIL) 50 mg tablet Take 1 tablet by mouth daily at bedtime. busPIRone (BUSPAR) 15 mg tablet Take 1 tablet by mouth three times a day. ketotifen fumarate (ALAWAY) 0.025 % (0.035 %) ophthalmic solution Use 1 Drop in both eyes twice daily. blood sugar diagnostic (Shippo VERIO TEST STRIPS) test strip TEST BLOOD SUGAR ONCE DAILY lancets (ONE TOUCH DELICA) 33 gauge Test blood sugar(s) 1 daily. Dx: Other DM Code E 11.29 Insulin: No amLODIPine (NORVASC) 10 mg tablet Take 1 tablet by mouth once daily. rivaroxaban (XARELTO) 20 mg tablet Take 20 mg by mouth daily with dinner. simvastatin (ZOCOR) 20 mg tablet Take 20 mg by mouth daily at bedtime. acetaminophen (TYLENOL EXTRA STRENGTH) 500 mg ORAL tablet Take 2 tablets by mouth every 4 hours as needed. No current facility-administered medications for this visit. FAMILY HISTORY Problem Relation Age of Onset Cancer Mother liver other (old age) Father Cancer Sister thyroid Social History Tobacco Use Smoking status: Former Current packs/day: 0.00 Types: Cigarettes Start date: 07/13/1962 Quit date: (more content not included)...[facility] 04-05-2024 Telephone encounter Note* Telephone Encounter - Joshua Baker DO - 04/05/2024 5:05 PM EDT Would she be willing to at least have the PET scan? Joshua Baker DO [facility]09-24-2024 Telephone encounter Note* Telephone Encounter - Vesta Jett - 04/05/2024 3:47 PM EDT Patient called stating she does not want any appointments in department. She canceled bmbx and pet scan. She did not want to reschedule. [facility] Work Phone: 1(257) 128-827509-24-2024 Telephone encounter Note* Telephone Encounter - Belle Fajardo LPN - 04/05/2024 1:16 PM EDT Patient is scheduled for PET scan 04/18/2024. Belle Fajardo LPN [facility]09-24-2024 Miscellaneous Notes* Telephone Encounter - Belle Fajardo LPN - 04/05/2024 1:16 PM EDT Patient is scheduled for PET scan 04/18/2024. Belle Fajardo LPN * Telephone Encounter - Joshua Baker DO - 04/05/2024 12:57 PM EDT Julius. She will need a whole body PET rather than MRI. Joshua Baker DO * Telephone Encounter - Phan Garza RT(Tessie) - 04/05/2024 12:34 PM EDT Hello, This patient has a cardiac device that is not FDA approved for MRI and is considered MRI non-conditional. If there is no alternative diagnostic exam that can answer the clinical question and the MRI exam is required to decide the best course of treatment for the patient, then the ordering clinician will need to follow the steps below: Contact the staff radiologist or MR physician for the type of MR exam requested to discuss possiblealternative diagnostic imaging exam, the potential risks of the MR exam, and the benefits of the MRexam. If both ordering clinician and staff radiologist agree that the benefits of the MR exam outweigh the risks, please document in the patient s EPIC chart and include the name of the radiologist with whom you spoke. [facility] Staff Rad: Neuro [phone] The potential risks of the MRI exam include any of the following: -Device malfunction which may or may not require surgical replacement -Cardiac arrhythmias from induced current in the leads -Heating of leads due to Radiofrequency which could cause hoyt -Dislodgement or movement of device Please follow up using this telephone encounter to let us know the discussion has taken place and we will get the patient scheduled for device interrogation, informed consent, and the MRI exam. If the exam is no longer wanted, please cancel the order in Epic. Thank You, MR Imaging Education / MRI Safety Team [place] [address]-24-2024 Telephone encounter Note * Telephone Encounter - Joshua Baker DO - 04/05/2024 12:57 PM EDT Julius. She will need a whole body PET rather than MRI. Joshua Baker DO [facility] Work Phone: 1(123) 274-258809-24-2024 Telephone encounter Note* Telephone Encounter - Phan Garza RT(R) - 04/05/2024 12:34 PM EDT Hello, This patient has a cardiac device that is not FDA approved for MRI and is considered MRI non-conditional. If there is no alternative diagnostic exam that can answer the clinical question and the MRI exam is required to decide the best course of treatment for the patient, then the ordering clinician will need to follow the steps below: Contact the staff radiologist or MR physician for the type of MR exam requested to discuss possiblealternative diagnostic imaging exam, the potential risks of the MR exam, and the benefits of the MRexam. If both ordering clinician and staff radiologist agree that the benefits of the MR exam outweigh the risks, please document in the patient s EPIC chart and include the name of the radiologist with whom you spoke. [facility] Staff Rad: Neuro [phone] The potential risks of the MRI exam include any of the following: -Device malfunction which may or may not require surgical replacement -Cardiac arrhythmias from induced current in the leads -Heating of leads due to Radiofrequency which could cause hoyt -Dislodgement or movement of device Please follow up using this telephone encounter to let us know the discussion has taken place and we will get the patient scheduled for device interrogation, informed consent, and the MRI exam. If the exam is no longer wanted, please cancel the order in Epic. Thank You, MR Imaging Education / MRI Safety Team [facility]09-20-2024 Telephone encounter Note* Telephone Encounter - Shara Delgado - 04/01/2024 9:27 AM EDT Check out comments: -MRI and PET when able -BMBX here -F/U 7-10 days after PET & BMBX scheduled. MRI must be triaged/scheduled at [facility] due to having a pacemaker. Please schedule OV once MRI is scheduled. Shara Delgado [facility]09-20-2024 Instructions* Patient Instructions* Joshua Baker DO - 04/01/2024 9:00 AM EDT Hold Xarelto day prior to biopsy and resume the day after bone marrow biopsy. [facility]24 NoteHNO ID: [id number] Author: JOSHUA BAKER DO Service: ? 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 HPI: The patient is an 83 year-old female with history of arrhythmia, status post pacemaker and radiofrequency ablation. Patient had been on Xarelto for atrial fibrillation since 2014. 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 Root for increased fatigue and was noted to have anemia. Patient had an occasional black tarry stool and rectal bleeding as well. She developed progressive anemia with increasing symptom fatigue, dyspnea exertion and palpitation. She denied having any previous blood transfusion. Additional tests showed she has moderate renal insufficiency and serum protein electrophoresis also showed a M protein, 0.73 gram per deciliter, IgG lambda. Patient has no fever, chills or night sweats. She has no bone pain, arthritis, headache or peripheral neuropathy. She has some lightheadedness and dizziness along with restless leg symptom and weakness from anemia. Patient has no weight loss, cough, chest pain or shortness of breath at rest. She had a screening colonoscopy in 2011. Patient has no history of peptic ulcer disease, but she is taking aspirin along with Xarelto. Has h/o [place] (PCI with stents), atrial fibrillation (on rivaroxaban), PPM, DM2, colitis and GERD. Per initial office visit with me: Very fatigued. Significant dyspnea with exertion. Panting. Uses wheeled walker. Legs get very weak. No chest or pressure. Occasional numbness in left foot. No black or bloody stools. Very constipated. Takes Miralax and has stool incontinence. No LE swelling. OV 02/26/2024: Received 5 doses of iron sucrose 11/25 through 12/23/2023. Admitted 02/06/2024 for CHF. Presented with dyspnea on exertion. Was having back pain. Evidently diagnosed with T8 fracture. Saw ortho. Brace. Oxycodone. Debilitating--can't do housework. In Wheelchair today. Recent burn from heating pad. On Lasix daily. Shortness of breat better. Presents for ongoing hematologic management. Interim history: Admitted for CHF. Diuresed. Reviewed electronic record [facility]. Breathing much better. PMH, medications and allergies personally reviewed by me today. Any changes documented in appropriate section. PHYSICAL EXAM: Vitals: Blood pressure 128/73, pulse 90, temperature 36.2 ?C (97.1 ?F), temperature source Temporal, weight 87.1 kg (192 lb), SpO2 92%. Fatigued-appearing and in no acute distress. EYES: Sclerae are anicteric bilaterally. RESPIRATORY: Inspiratory breath sounds are diminished at the bases. CARDIOVASCULAR: Rhythm is regular. ABDOMEN: The abdomen is nondistended. Extremities: No swelling or edema. SKIN: No jaundice. LABS: Latest Ref Rng 11/17/2023 Albumin 3.43 - 5.41 g/dL 4.15 Alpha 1 Globulin 0.18 - 0.43 g/dL 0.30 Alpha 2 Globulin 0.42 - 0.98 g/dL 0.72 Beta Globulin 0.61 - 1.17 g/dL 2.59 (H) Gamma Globulin 0.53 - 1.51 g/dL 0.83 Interpretation (Prot Electro) No definitive M protein is identified on protein electrophoresis. An M protein is identified on protein electrophoresis. ! Interpretation Comment for Protein Electrophoresis See separate immunofixation report for characterization of monoclonal gammopathy. M-Protein Location Beta Fraction 1 M-Protein Concentration <=0.00 g/dL 1.54 (H) SPE Staff Review Reviewed by Kristy Quiles M.D., Ph.D IgG 700 - 1,600 mg/dL 2,591 (H) IgA 70 - 400 mg/dL 378 IgM 40 - 230 mg/dL 78 MPA Result No M protein is identified. M protein is present. ! Interpretation (MPA) Atypical restricted bands are present in the IgG and lambda regions. Consistent with IgG lambda monoclonal gammopathy. 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 -Stable to improved renal function over the last year. -Whole body CT. Questionable lytic lesions in clivus. -Improved serum Cr. -Reviewed all findings. -Consented for bone marrow biopsy. Plan: -MRI skull base and PET since she may not tolerate lying down for MRI whole spine and pelvis. -Rx Ativan for biopsy. -Bone marrow biopsy. -Hold Xarelto day prior to biopsy and resume the day after bone marrow biopsy. Portions of this documentation were copied and pasted from previous office visit notes in order to provide a cohesive continuity of the history. The note has been reviewed and edited and updated as necessary. 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 HPI: The patient is an 83 year-old female with history of arrhythmia, status post pacemaker and radiofrequency ablation. Patient had been on Xarelto for atrial fibrillation since 2014. 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 Root for increased fatigue and was noted to have anemia. Patient had an occasional black tarry stool and rectal bleeding as well. She developed progressive anemia with increasing symptom fatigue, dyspnea exertion and palpitation. She denied having any previous blood transfusion. Additional tests showed she has moderate renal insufficiency and serum protein electrophoresis also showed a M protein, 0.73 gram per deciliter, IgG lambda. Patient has no fever, chills or night sweats. She has no bone pain, arthritis, headache or peripheral neuropathy. She has some lightheadedness and dizziness along with restless leg symptom and weakness from anemia. Patient has no weight loss, cough, chest pain or shortness of breath at rest. She had a screening colonoscopy in 2011. Patient has no history of peptic ulcer disease, but she is taking aspirin along with Xarelto. Has h/o [place] (PCI with stents), atrial fibrillation (on rivaroxaban), PPM, DM2, colitis and GERD. Per initial office visit with me: Very fatigued. Significant dyspnea with exertion. Panting. Uses wheeled walker. Legs get very weak. No chest or pressure. Occasional numbness in left foot. No black or bloody stools. Very constipated. Takes Miralax and has stool incontinence. No LE swelling. OV 02/26/2024: Received 5 doses of iron sucrose 11/25 through 12/23/2023. Admitted 02/06/2024 for CHF. Presented with dyspnea on exertion. Was having back pain. Evidently diagnosed with T8 fracture. Saw ortho. Brace. Oxycodone. Debilitating--can't do housework. In Wheelchair today. Recent burn from heating pad. On Lasix daily. Shortness of breat better. Presents for ongoing hematologic management. Interim history: Admitted for CHF. Diuresed. Reviewed electronic record [facility]. Breathing much better. PMH, medications and allergies personally reviewed by me today. Any changes documented in appropriate section. PHYSICAL EXAM: Vitals: Blood pressure 128/73, pulse 90, temperature 36.2 C (97.1 F), temperature source Temporal, weight 87.1 kg (192 lb), SpO2 92%. Fatigued-appearing and in no acute distress. EYES: Sclerae are anicteric bilaterally. RESPIRATORY: Inspiratory breath sounds are diminished at the bases. CARDIOVASCULAR: Rhythm is regular. ABDOMEN: The abdomen is nondistended. Extremities: No swelling or edema. SKIN: No jaundice. LABS: Latest Ref Rng 11/17/2023 Albumin 3.43 - 5.41 g/dL 4.15 Alpha 1 Globulin 0.18 - 0.43 g/dL 0.30 Alpha 2 Globulin 0.42 - 0.98 g/dL 0.72 Beta Globulin 0.61 - 1.17 g/dL 2.59 (H) Gamma Globulin 0.53 - 1.51 g/dL 0.83 Interpretation (Prot Electro) No definitive M protein is identified on protein electrophoresis. An M protein is identified on protein electrophoresis. ! Interpretation Comment for Protein Electrophoresis See separate immunofixation report for characterization of monoclonal gammopathy. M-Protein Location Beta Fraction 1 M-Protein Concentration <=0.00 g/dL 1.54 (H) SPE Staff Review Reviewed by Kristy Quiles M.D., Ph.D IgG 700 - 1,600 mg/dL 2,591 (H) IgA 70 - 400 mg/dL 378 IgM 40 - 230 mg/dL 78 MPA Result No M protein is identified. M protein is present. ! Interpretation (MPA) Atypical restricted bands are present in the IgG and lambda regions. Consistent with IgG lambda monoclonal gammopathy. 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 -Stable to improved renal function over the last year. -Whole body CT. Questionable lytic lesions in clivus. -Improved serum Cr. -Reviewed all findings. -Consented for bone marrow biopsy. Plan: -MRI skull base and PET since she may not tolerate lying down for MRI whole spine and pelvis. -Rx Ativan for biopsy. -Bone marrow biopsy. -Hold Xarelto day prior to biopsy and resume the day after bone marrow biopsy. Portions of this documentation were copied and pasted from previous office visit notes in order to provide a cohesive continuity of the history. The note has been reviewed and edited and updated as necessary. I spent a total of 30 minutes on the date of the service which included preparing to see the patient (records from [facility]), [id number] patient care, completing clinical documentation, obtaining and/orreviewing separately obtained history, counseling and educating the patient/family/caregiver, ordering medications, tests, or procedures, communicating with other HCPs (not separately reported), and communicating results to the patient/family/caregiver. Joshua Baker DO [facility] Telephone encounter Note * Telephone Encounter - Yovana Painter APRN.CNP - 03/31/2024 3:17 PM EDT Noted Yovana Painter APRN.CNP [facility]09-19-2024 Miscellaneous Notes* Telephone Encounter - Yovana Painter APRN.CNP - 03/31/2024 3:17 PM EDT Noted Yovana Painter APRN.CNP * Telephone Encounter - Gisselle Banda LPN - 03/31/2024 11:31 AM EDT Phan from [facility] calling: Yesterday HH initiated and started Today 03/31/24- patient wishes to d/c services. PATIENT's is there and is managing O2 well. Tomorrow 04/01/24- [facility] well be d/c'd Please review Gisselle Banda LPN documented in this encounterBu[facility]09-[facility] Telephone encounter Note * Telephone Encounter - Gisselle Banda LPN - 03/31/2024 11:31 AM EDT Phan from [facility] calling: Yesterday HH initiated and started Today 03/31/24- patient wishes to d/c services. PATIENT's is there and is managing O2 well. Tomorrow 04/01/24- [facility] well be d/c'd Please review Gisselle Banda LPN [facility]09-18-2024 Telephone encounter Note* Telephone Encounter - Shanti Astorga RN - 03/30/2024 3:54 PM EDT Fanny, nurse with [facility] calling with the following: Update: Nursing Plan of Care: Nursing will see patient 2x/week for 2 weeks then 1x/week for 2 weeksfor heart failure mgmt; oxygen and medication management. Question: Patient taking 4 laxatives currently. Nurse asking which medications should patient continue and which ones should she not continue? 1) senakot OTC- one daily 2) colace OTC-one daily 3) docusate sodium 100 mg daily 4)Senna-S OTC-one daily Report of Medication Discrepancy: Patient currently taking Potassium and Amitriptyline which can cause gastric delay and stomach upset. Please notify Nurse if provider wishes to make any changes with these medications. Please call Fanny with reply: [phone] Thank you. [facility]09-18-2024 Miscellaneous Notes* Telephone Encounter - Shanti Astorga RN - 03/30/2024 3:54 PM EDT Fanny, nurse with [facility] calling with the following: Update: Nursing Plan of Care: Nursing will see patient 2x/week for 2 weeks then 1x/week for 2 weeksfor heart failure mgmt; oxygen and medication management. Question: Patient taking 4 laxatives currently. Nurse asking which medications should patient continue and which ones should she not continue? 1) senakot OTC- one daily 2) colace OTC-one daily 3) docusate sodium 100 mg daily 4)Senna-S OTC-one daily Report of Medication Discrepancy: Patient currently taking Potassium and Amitriptyline which can cause gastric delay and stomach upset. Please notify Nurse if provider wishes to make any changes with these medications. Please call Fanny with reply: [phone] Thank you. documented in this encounterBucyrus Community Hospital09-18-2024 NoteHNO ID: [id number] Author: IVELISSE LUIS RN Service: ? Author Type: Registered Nurse Type: Progress Notes Filed: 03/30/2024 09:41 Note Text: Transition Care Management (TCM) Initial Outreach PCP Update / Actionable Items HRTIC TCM Home Visit Referral Source of Stratification: TCM HUB Hospital Admission Status: Discharged Readmission Risk Score: n/a Patient's zip code: [address] Is zip code within program service area: No Patient meets program referral criteria: No Patient does not qualify for High Risk TCM Home Visit program due to: Readmission Risk Score does not meet criteria Disposition: Patient does not qualify for HRTIC, will provide TCM outreach follow-up for 30-days Patient Source: [id number] (OON) Discharge Outreach Summary: Pt reports feeling OK this am, spouse assisted to shower and had breakfast. Did not check blood glucose this Am. States wearing 02 with exertion only- pulse ox while sitting 91% . Pt encouraged to do some deep breathing - educated on safe parameters for O2 pulse ox - 92-93% and above . Pt states her scale at home may not be working correctly - encouraged pt to consider a new scale if needed for daily weights. Pt states still having some left rib discomfort since spine surgery this summer and takes an occasional Oxycodone . States her spouse assists her with ADL's and has a cleaning lady. Agrees to 30 day TCM following. Education: -daily weights every morning prior to eating or drinking and after using the restroom with plan for unexpected weight gain/loss of 4 pounds or more -Diet [fluids; limit salt intake to 2,000 mg of sodium daily] -medication compliance -reviewed CHF zones and when to call Patient discharged from [facility] Discharge date: 03/29/24 Admitted for: CHF Readmission Risk: n/a Value-Based Contract: ACO Contact: Contact made with patient: Yes Hi, my name is Ivelisse Luis RN and I am calling from the [facility] on behalf of your Primary Care Provider, Victor M Rocha MD. I understand you were recently in the hospital, so I am calling to check in with you to ensure you are feeling well now that you are home. May I ask you a few questions related to your hospital stay and well-being? Yes Spoke to: Patient Validation: Validated the person spoken to is actively involved in the patient's care. The patient was identified by Name and Date of . Symptoms: Are you feeling about the same, better or worse since leaving the hospital? Better Medications: Do you have any questions about taking your medications, including which medications you should be on, or do you need refills on your medications? No Medication Review: Partial mediation review completed, per patient preference Discharge Instructions: Your Discharge Instructions / After Visit Summary (AVS) are important in guiding you through the recovery process. Do you have any questions related to your discharge instructions? No Home Care: Were you discharged with home care? Yes Has your Home Care Agency contacted you? Yes Name of Home Care Agency: [facility] Phone number, if available: [phone] Start of Home Care services date: Today per pt Home care services included: Nursing Physical / Occupational Therapy Equipment: Do you have all the necessary equipment and supplies needed at your home? Yes The patient verbalizes understanding the use of the equipment and supplies Social: We would like to make sure you have what you need so that your basics needs are met - including your personal safety, food, housing and medications. Would you like to speak with a social work executive officer special warfare team to help give you support for any of these needs? No It can be normal to feel anxious or down during a time like this. Would you like to talk to a mental health professional about how you have been feeling? No Action Taken: No needs verbalized. No action required. Follow-Up Appointment: [Appointment / TCM Follow-up within 14 days] I would like to help you schedule a hospital follow-up virtual or telephone visit with your PCP. This is a great way for you to connect with your provider to ensure you have safely transitioned home. If you are agreeable, I will send your request to a cardiac cath lab radiology technologist who will contact and assist you with that appointment. This will give you an opportunity to ask any questions or address any concerns you may have with your PCP. Inform the patient that if they have any questions or concerns prior to that appointment, to call their PCP's office right away. Appointment Action: No action required; patient already has appointment scheduled. Education Heart Failure Education Provided Following a low sodium diet Weight monitoring and knowing your dry weight Heart failure medications and importance of compliance Symptom management related to heart failure Targets addressed / completed during ou (more content not included)...[facility]09-18-20[facility] History of Present illness Narrative* Ivelisse Luis RN - 03/30/2024 9:22 AM EDT Transition Care Management (TCM) Initial Outreach PCP Update / Actionable Items HRTIC TCM Home Visit Referral Source of Stratification: TCM HUB Hospital Admission Status: Discharged Readmission Risk Score: n/a Patient's zip code: [address] Is zip code within program service area: No Patient meets program referral criteria: No Patient does not qualify for High Risk TCM Home Visit program due to: Readmission Risk Score does not meet criteria Disposition: Patient does not qualify for HRTIC, will provide TCM outreach follow-up for 30-days Patient Source: [facility] (OON) Discharge Outreach Summary: Pt reports feeling OK this am, spouse assisted to shower and had breakfast. Did not check blood glucose this Am. States wearing 02 with exertion only- pulse ox while sitting 91% . Pt encouraged to do some deep breathing - educated on safe parameters for O2 pulse ox - 92-93% and above . Pt states her scale at home may not be working correctly - encouraged pt to consider a new scale ifneeded for daily weights. Pt states still having some left rib discomfort since spine surgery this summer and takes an occasional Oxycodone . States her spouse assists her with ADL's and has a cleaning lady. Agrees to 30 day TCM following. Education: -daily weights every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 11/17/2023 Albumin 3.43 - 5.41 g/dL 4.15 Alpha 1 Globulin 0.18 - 0.43 g/dL 0.30 Alpha 2 Globulin 0.42 - 0.98 g/dL 0.72 Beta Globulin 0.61 - 1.17 g/dL 2.59 (H) Gamma Globulin 0.53 - 1.51 g/dL 0.83 Interpretation (Prot Electro) No definitive M protein is identified on protein electrophoresis. An M protein is identified on protein electrophoresis. ! Interpretation Comment for Protein Electrophoresis See separate immunofixation report for characterization of monoclonal gammopathy. M-Protein Location Beta Fraction 1 M-Protein Concentration <=0.00 g/dL 1.54 (H) SPE Staff Review Reviewed by Kristy Quiles M.D., Ph.D IgG 700 - 1,600 mg/dL 2,591 (H) IgA 70 - 400 mg/dL 378 IgM 40 - 230 mg/dL 78 MPA Result No M protein is identified. M protein is present. ! Interpretation (MPA) Atypical restricted bands are present in the IgG and lambda regions. Consistent with IgG lambda monoclonal gammopathy. 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 -Stable to improved renal function over the last year. -Reviewed whole body CT. -Needs MRI skull base, spine and pelvis or PET since she may not tolerate MRI given pain. -Needs bone marrow biopsy. -However she is hypoxemic. Plan: -To ED at [facility]. -Spoke to Dr. Dodge. Portions of this documentation were copied and pasted from previous office visit notes in order to provide a cohesive continuity of the history. The note has been reviewed and edited and updated as necessary. I spent a total of 20 minutes on the date of the service which included preparing to see the patient, [id number] patient care, completing clinical documentation, obtaining and/or reviewing separately obtained history, performing a medically appropriate examination, counseling and educating the pat ient/family/caregiver, ordering medications, tests, or procedures, communicating with other HCPs (not separately reported), and communicating results to the patient/family/caregiver. Joshua Baker DO documented in this encounter[facility]24 Telephone encounter Note * Telephone Encounter - Shara Cruz RN - 03/25/2024 8:03 AM EDT Patient call in for shortness of breath with activity x 1 day. Patient states that she was seen in ER 6-8 weeks ago and was diagnosed with CHF. Patient was told not to let CHF and breathing difficulties get too bad so she is calling now. Patient states that there is some swelling to bilateral feet. Nurse Triage assessment completed with protocol recommending for disposition of see PCP in 4 hours.Patient is scheduled to see Damaris today at 11:40. Care advice reviewed with patient, patient stated understanding. Patient advised to contact office or seek evaluation in urgent care or ER if symptoms persist or gets worse. Reason for Disposition [1] MILD difficulty breathing (e.g., minimal/no SOB at rest, SOB with walking, pulse <100) AND [2] NEW-onset or WORSE than normal Answer Assessment - Initial Assessment Questions 1. RESPIRATORY STATUS: Shortness of breath 2. ONSET: Has been going on for about a day 3. PATTERN Comes and Goes 4. SEVERITY: Mild, Patient is having shortness of breath with walking. 5. RECURRENT SYMPTOM: Was Diagnosed with CHF about 6-8 weeks ago 6. CARDIAC HISTORY: CHF 7. LUNG HISTORY: Denies 8. CAUSE: Patient was recently diagnosed with CHF 9. OTHER SYMPTOMS: Denies other symptoms. Protocols used: Breathing [id number] [facility]09-[facility] Miscellaneous Notes* Telephone Encounter - Shara Cruz RN - 03/25/2024 8:03 AM EDT Patient call in for shortness of breath with activity x 1 day. Patient states that she was seen in ER 6-8 weeks ago and was diagnosed with CHF. Patient was told not to let CHF and breathing difficulties get too bad so she is calling now. Patient states that there is some swelling to bilateral feet. Nurse Triage assessment completed with protocol recommending for disposition of see PCP in 4 hours.Patient is scheduled to see Damaris today at 11:40. Care advice reviewed with patient, patient stated understanding. Patient advised to contact office or seek evaluation in urgent care or ER if symptoms persist or gets worse. Reason for Disposition [1] MILD difficulty breathing (e.g., minimal/no SOB at rest, SOB with walking, pulse <100) AND [2] NEW-onset or WORSE than normal Answer Assessment - Initial Assessment Questions 1. RESPIRATORY STATUS: Shortness of breath 2. ONSET: Has been going on for about a day 3. PATTERN Comes and Goes 4. SEVERITY: Mild, Patient is having shortness of breath with walking. 5. RECURRENT SYMPTOM: Was Diagnosed with CHF about 6-8 weeks ago 6. CARDIAC HISTORY: CHF 7. LUNG HISTORY: Denies 8. CAUSE: Patient was recently diagnosed with CHF 9. OTHER SYMPTOMS: Denies other symptoms. Protocols used: Breathing [id number] documented in this encounterBucyrus [facility]08-22-2024 Telephone encounter Note * Telephone Encounter - Yovana Painter APRN.CNP - 03/03/2024 11:04 AM EDT The following approved medication requests have been transmitted electronically. Requested Prescriptions Pending Prescriptions Disp Refills omeprazole (PRILOSEC) 40 mg capsule 90 capsule 3 Sig: Take 1 capsule by mouth once daily. Yovana Painter APRN.CNP [facility]08-22-2024 Miscellaneous Notes* Telephone Encounter - Yovana Painter APRN.CNP - 03/03/2024 11:04 AM EDT The following approved medication requests have been transmitted electronically. Requested Prescriptions Pending Prescriptions Disp Refills omeprazole (PRILOSEC) 40 mg capsule 90 capsule 3 Sig: Take 1 capsule by mouth once daily. Yovana Painter APRN.CNP * Telephone Encounter - Antonio Braxton - 03/03/2024 9:44 AM EDT Prescription Refill Information The patient has been identified by name and date of : Yes Caregiver verified no other encounters exist for this prescription request: Yes Caregiver confirmed with patient/requestor that no other refills are due, in the near future, with this provider at this time: Yes The last office visit in the department: 02/01/24 Does the patient have a future office visit with this provider/department: Yes Requested Prescriptions Pending Prescriptions Disp Refills omeprazole (PRILOSEC) 40 mg capsule 90 capsule 3 Sig: Take 1 capsule by mouth once daily. Antonio Peraza March 03, 2024 9:45 AM documented in this encounterBucyrus [facility]08-22-2024 Telephone encounter Note * Telephone Encounter - Antonio Braxton - 03/03/2024 9:44 AM EDT Prescription Refill Information The patient has been identified by name and date of : Yes Caregiver verified no other encounters exist for this prescription request: Yes Caregiver confirmed with patient/requestor that no other refills are due, in the near future, with this provider at this time: Yes The last office visit in the department: 02/01/24 Does the patient have a future office visit with this provider/department: Yes Requested Prescriptions Pending Prescriptions Disp Refills omeprazole (PRILOSEC) 40 mg capsule 90 capsule 3 Sig: Take 1 capsule by mouth once daily. Antonio Kc [facility] March 03, 2024 9:45 AM [facility]08-22-20[facility] Telephone encounter Note* Telephone Encounter - Shara Delgado - 03/03/2024 9:39 AM EDT Spoke with patient and scheduled. Shara Delgado [facility]08-22-2024 Miscellaneous Notes* Telephone Encounter - Shara Delgado - 03/03/2024 9:39 AM EDT Spoke with patient and scheduled. Shara Delgado * Telephone Encounter - Belle Fajardo LPN - 03/03/2024 8:05 AM EDT Patient is aware of all information. PSS- please contact patient to schedule an OV as directed below. Belle Fajardo LPN * Telephone Encounter - Belle Fajardo LPN - 03/03/2024 8:05 AM EDT ----- Message from Joshua Baker DO sent at 03/03/2024 6:58 AM EDT ----- Bone x-rays showed only the fracture of T8. Keep CT as scheduled. Follow up with me about a week after the CT. documented in this encounterBucyrus [facility] Hospital08-22-2024 Telephone encounter Note * Telephone Encounter - Belle Fajardo LPN - 03/03/2024 8:05 AM EDT Patient is aware of all information. PSS- please contact patient to schedule an OV as directed below. Belle Fajardo LPN [facility]08-22-2024 Telephone encounter Note* Telephone Encounter - Belle Fajardo LPN - 03/03/2024 8:05 AM EDT ----- Message from Joshua Baker DO sent at 03/03/2024 6:58 AM EDT ----- Bone x-rays showed only the fracture of T8. Keep CT as scheduled. Follow up with me about a week after the CT. [facility]08-16-[facility] History of Present illness Narrative* Telma Madera RT(R) - 02/26/2024 11:50 AM EDT Radiology Service Progress Note PATIENT NAME: Antonio Gupta DATE OF SERVICE: February 26, 2024 TIME: 11:50 AM PATIENT IDENTITY VERIFICATION COMPLETED USING TWO (2) IDENTIFIERS: Name and Date of confirmedby patient verbally. FALL SCREENING: Has the patient had 2 falls in the last year or 1 fall with injury or currently using an Ambulatory Assistive Device (Walker, Cane, Wheelchair, Crutches, etc.)? Yes, Patient High Riskfor Falls What interventions were put in place to prevent falls during this visit? Increased Observations by Caregivers PATIENT GENDER DATA: Female. status: : No status: NO. PATIENT RELEVANT IMPLANT DATA REVIEWED: Not Applicable PATIENT PRESENTS WITH AN IMPLANTABLE OR ATTACHED FLOUR DISTRIBUTOR: No RADIOLOGY DEPARTMENT: General X-ray: Exam(s) Completed: Bone Survey PERIPHERAL IV DATA: Not applicable SIGNED BY: RT Jonas(R) February 26, 2024 11:50 AM documented in this encounterBucyrus Community Hospital08-16-2024 NoteHNO ID: [id number] Author: TELMA MADERA RT(R) Service: ? Author Type: Technologist Type: Progress Notes Filed: 02/26/2024 12:26 Note Text: Radiology Service Progress Note PATIENT NAME: Antonio Gupta DATE OF SERVICE: February 26, 2024 TIME: 11:50 AM PATIENT IDENTITY VERIFICATION COMPLETED USING TWO (2) IDENTIFIERS: Name and Date of confirmed by patient verbally. FALL SCREENING: Has the patient had 2 falls in the last year or 1 fall with injury or currently using an Ambulatory Assistive Device (Walker, Cane, Wheelchair, Crutches, etc.)? Yes, Patient High Risk for Falls What interventions were put in place to prevent falls during this visit? Increased Observations by Caregivers PATIENT GENDER DATA: Female. status: : No status: NO. PATIENT RELEVANT IMPLANT DATA REVIEWED: Not Applicable PATIENT PRESENTS WITH AN IMPLANTABLE OR ATTACHED FLOUR DISTRIBUTOR: No RADIOLOGY DEPARTMENT: General X-ray: Exam(s) Completed: Bone Survey PERIPHERAL IV DATA: Not applicable SIGNED BY: RT Jonas(R) February 26, 2024 11:50 [facility]08-16-2024 NoteHNO ID: [id number] Author: JOSHUA BAKER DO Service: ? 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 HPI: The patient is an 83 year-old female with history of arrhythmia, status post pacemaker and radiofrequency ablation. Patient had been on Xarelto for atrial fibrillation since 2015. 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 Root for increased fatigue and was noted to have anemia. Patient had an occasional black tarry stool and rectal bleeding as well. She developed progressive anemia with increasing symptom fatigue, dyspnea exertion and palpitation. She denied having any previous blood transfusion. Additional tests showed she has moderate renal insufficiency and serum protein electrophoresis also showed a M protein, 0.73 gram per deciliter, IgG lambda. Patient has no fever, chills or night sweats. She has no bone pain, arthritis, headache or peripheral neuropathy. She has some lightheadedness and dizziness along with restless leg symptom and weakness from anemia. Patient has no weight loss, cough, chest pain or shortness of breath at rest. She had a screening colonoscopy in 2011. Patient has no history of peptic ulcer disease, but she is taking aspirin along with Xarelto. Has h/o [place] (PCI with stents), atrial fibrillation (on rivaroxaban), PPM, DM2, colitis and GERD. Per initial office visit with me: Very fatigued. Significant dyspnea with exertion. Panting. Uses wheeled walker. Legs get very weak. No chest or pressure. Occasional numbness in left foot. No black or bloody stools. Very constipated. Takes Miralax and has stool incontinence. No LE swelling. Presents for ongoing hematologic management. Interim history: Received 5 doses of iron sucrose 11/25 through 12/23/2023. Admitted 02/06/2024 for CHF. Presented with dyspnea on exertion. Was having back pain. Evidently diagnosed with T8 fracture. Saw ortho. Brace. Oxycodone. Debilitating--can't do housework. In Wheelchair today. Recent burn from heating pad. On Lasix daily. Shortness of breat better. PHYSICAL EXAMINATION: Well-nourished well-developed elderly female is in no acute distress BP 146/76 Pulse 91 Temp (Src) 97.6 (Temporal) Wt 195 lb 8 oz (88.7kg) SpO2 95% HEENT: Head is normocephalic, atraumatic. Sclerae white, conjunctivae pink. PEERL. EOMs are intact. Oropharynx is benign. LYMPHATICS: There is no palpable adenopathy in the neck, supraclavicular region. LUNGS: Diminished vesicular breath sounds throughout, but clear. HEART: Regular rhythm. ABDOMEN: Non-distended.t. LABS: ASSESSMENT/PLAN: (D47.2) MGUS (monoclonal gammopathy of unknown significance) (primary encounter diagnosis) Assessment: -IgG lambda monoclonal gammopathy. -Stable to improved renal function over the last year. -Recent fracture T8? Imaging report not currently available. -Reviewed labs. Iron saturation low. Not anemic. Improved serum creatinine. Plan: -Bone survey today. -Whole-body bone CT. -Follow up after CT. -Scheduled to see chronic pain management 03/17. Portions of this documentation were copied and pasted from previous office visit notes in order to provide a cohesive continuity of the history. The note has been reviewed and edited and updated as necessary. I spent a total of 20 minutes on the date of the service which included preparing to see the patient, [id number] patient care, completing clinical documentation, obtaining and/or reviewing separately obtained history, performing a medically appropriate examination, counseling and educating the patient/family/caregiver, ordering medications, tests, or procedures, communicating with other HCPs (not separately reported), and communicating results to the patient/family/caregiver. 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 HPI: The patient is an 83 year-old female with history of arrhythmia, status post pacemaker and radiofrequency ablation. Patient had been on Xarelto for atrial fibrillation since 2014. 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 Root for increased fatigue and was noted to have anemia. Patient had an occasional black tarry stool and rectal bleeding as well. She developed progressive anemia with increasing symptom fatigue, dyspnea exertion and palpitation. She denied having any previous blood transfusion. Additional tests showed she has moderate renal insufficiency and serum protein electrophoresis also showed a M protein, 0.73 gram per deciliter, IgG lambda. Patient has no fever, chills or night sweats. She has no bone pain, arthritis, headache or peripheral neuropathy. She has some lightheadedness and dizziness along with restless leg symptom and weakness from anemia. Patient has no weight loss, cough, chest pain or shortness of breath at rest. She had a screening colonoscopy in 2011. Patient has no history of peptic ulcer disease, but she is taking aspirin along with Xarelto. Has h/o [place] (PCI with stents), atrial fibrillation (on rivaroxaban), PPM, DM2, colitis and GERD. Per initial office visit with me: Very fatigued. Significant dyspnea with exertion. Panting. Uses wheeled walker. Legs get very weak. No chest or pressure. Occasional numbness in left foot. No black or bloody stools. Very constipated. Takes Miralax and has stool incontinence. No LE swelling. Presents for ongoing hematologic management. Interim history: Received 5 doses of iron sucrose 11/25 through 12/23/2023. Admitted 02/06/2024 for CHF. Presented with dyspnea on exertion. Was having back pain. Evidently diagnosed with T8 fracture. Saw ortho. Brace. Oxycodone. Debilitating--can't do housework. In Wheelchair today. Recent burn from heating pad. On Lasix daily. Shortness of breat better. PHYSICAL EXAMINATION: Well-nourished well-developed elderly female is in no acute distress BP 146/76 Pulse 91 Temp (Src) 97.6 (Temporal) Wt 195 lb 8 oz (88.7kg) SpO2 95% HEENT: Head is normocephalic, atraumatic. Sclerae white, conjunctivae pink. PEERL. EOMs are intact.Oropharynx is benign. LYMPHATICS: There is no palpable adenopathy in the neck, supraclavicular region. LUNGS: Diminished vesicular breath sounds throughout, but clear. HEART: Regular rhythm. ABDOMEN: Non-distended.t. LABS: ASSESSMENT/PLAN: (D47.2) MGUS (monoclonal gammopathy of unknown significance) (primary encounter diagnosis) Assessment: -IgG lambda monoclonal gammopathy. -Stable to improved renal function over the last year. -Recent fracture T8? Imaging report not currently available. -Reviewed labs. Iron saturation low. Not anemic. Improved serum creatinine. Plan: -Bone survey today. -Whole-body bone CT. -Follow up after CT. -Scheduled to see chronic pain management 03/17. Portions of this documentation were copied and pasted from previous office visit notes in order to provide a cohesive continuity of the history. The note has been reviewed and edited and updated as necessary. I spent a total of 20 minutes on the date of the service which included preparing to see the patient, [id number] patient care, completing clinical documentation, obtaining and/or reviewing separately obtained history, performing a medically appropriate examination, counseling and educating the pat ient/family/caregiver, ordering medications, tests, or procedures, communicating with other HCPs (not separately reported), and communicating results to the patient/family/caregiver. Joshua Baker DO documented in this encounterBu[facility]08-09-2024 Telephone encounter Note * Telephone Encounter - Victor M Rocha MD - 02/19/2024 1:56 PM EDT OK to refill as ordered Victor M Rocha MD [facility]08-09-2024 Miscellaneous Notes* Telephone Encounter - Victor M Rocha MD - 02/19/2024 1:56 PM EDT OK to refill as ordered Victor M Rocha MD * Telephone Encounter - Phan Abrams - 02/19/2024 11:19 AM EDT Prescription Refill Information The patient has been identified by name and date of : Yes Caregiver verified no other encounters exist for this prescription request: Yes Caregiver confirmed with patient/requestor that no other refills are due, in the near future, with this provider at this time: Yes The last office visit in the department: 02/01/24 Does the patient have a future office visit with this provider/department: Yes Requested Prescriptions Pending Prescriptions Disp Refills furosemide (LASIX) 40 mg tablet 90 tablet 2 Sig: Take 1 tablet by mouth once daily. Phan Peraza February 19, 2024 11:19 AM documented in this encounterBucyrus [facility] Hospital08-09-2024 Telephone encounter Note * Telephone Encounter - Phan Abrams - 02/19/2024 11:19 AM EDT Prescription Refill Information The patient has been identified by name and date of : Yes Caregiver verified no other encounters exist for this prescription request: Yes Caregiver confirmed with patient/requestor that no other refills are due, in the near future, with this provider at this time: Yes The last office visit in the department: 02/01/24 Does the patient have a future office visit with this provider/department: Yes Requested Prescriptions Pending Prescriptions Disp Refills furosemide (LASIX) 40 mg tablet 90 tablet 2 Sig: Take 1 tablet by mouth once daily. Phan Peraza February 19, 2024 11:19 AM [facility] Work Phone: [phone]) 421-990808-06-2024 NoteHNO ID: [id number] Author: SEAN RIDLEY PA Service: ? Author Type: Physician Transferrer Type: Progress Notes Filed: 02/16/2024 12:31 Note Text: This note was created using [employer]. Subjective Antonio Gupta is a 83 year old female. HPI 83 year old female presents for burn of the lower back. Patient states she has been having low back issues for quite some time. She follows with her doctor for this. She states that over the past few weeks she has had increased low back pain and has been using a rice bag that you warm up in the microwave for her pain. She states this does help. She reports that she microwaved the rice bag too hot and burned her skin. She states that her and daughter noticed it. It was originally blistered. The blisters have now popped and is more scabbed over. She does have an area of redness still, so they wanted her to come in for evaluation. Patient states she has not been able to see the area, so is unsure what it looks like or how it has changed. She states it is occasionally painful if the scabs get caught on her shirt. She has been putting some kpof-bkm-funldtr ointment on it and bandages. Has not tried anything else for symptoms. No fevers. No other complaint. PAST MEDICAL HISTORY No date: Coronary atherosclerosis of unspecified type of vessel, [place] or graft Comment: Stent x 22010 No date: Depressive disorder, not elsewhere classified No date: Diverticulosis of colon (without mention of hemorrhage) No date: Essential hypertension, benign No date: Heart attack (HCC) No date: Other and unspecified hyperlipidemia No date: Palpitations No date: Paroxysmal atrial fibrillation (HCC) PAST SURGICAL HISTORY No date: APPENDECTOMY 1998: COLONOSCOPY FLX DX W/COLLJ SPEC WHEN PFRMD Comment: Colonoscopy repeat 10 years 05/18/12: COLONOSCOPY FLX DX W/COLLJ SPEC WHEN PFRMD Comment: Colonoscopy 09/15/2016: COLSC FLX W/REMOVAL LESION BY HOT BX FORCEPS 09/15/2016: EGD REMOVAL TUMOR POLYP/OTHER LESION SNARE TECH 09/2010: HEART SURGERY HX Comment: stents inserted 2010: LEFT HEART CATH,PERCUTANEOUS Comment: Cardiac cath, L heart 04/2015: PACEMAKER IMPLANT 2010: PERC TRANSL COR ANGIO Comment: Percutaneous Transluminal Coronary Angio Status 03/31/2016: SVT ABLATION W/ EP COMPLETE Comment: Dr. Buitrago 1985: TOTAL ABDOMINAL HYSTERECT W/WO RMVL TUBE OVARY Comment: Hysterectomy, ROSALIO No date: W TRY ATRIOGRM HP ALLERGIES Poison Fany and Sulfa (Sulfonamide Antibiotics) MEDICATIONS glimepiride (AMARYL) 4 mg tablet Take 0.5 tablets by mouth daily with breakfast. metoprolol succinate ER (TOPROL XL) 50 mg 24 hr tablet Take 50 mg by mouth once daily. furosemide (LASIX) 40 mg tablet Take 40 mg by mouth once daily. nitroglycerin sublingual (NITROSTAT) 0.4 mg SL tablet Dissolve 1 tablet under the tongue every 5 minutes as needed for chest pain. tiZANidine (ZANAFLEX) 4 mg tablet Take 1 tablet by mouth every 8 hours as needed (muscle spasms). levothyroxine (SYNTHROID) 100 mcg tablet Take 1 tablet by mouth once daily. empagliflozin (JARDIANCE) 10 mg tablet Take 1 tablet by mouth once daily. Take 1 tablet once daily in the morning amitriptyline (ELAVIL) 50 mg tablet Take 1 tablet by mouth daily at bedtime. busPIRone (BUSPAR) 15 mg tablet Take 1 tablet by mouth three times a day. omeprazole (PRILOSEC) 40 mg capsule Take 1 capsule by mouth once daily. ketotifen fumarate (ALAWAY) 0.025 % (0.035 %) ophthalmic solution Use 1 Drop in both eyes twice daily. blood sugar diagnostic (HeadplayUCH VERIO TEST STRIPS) test strip TEST BLOOD SUGAR ONCE DAILY lancets (ONE TOUCH DELICA) 33 gauge Test blood sugar(s) 1 daily. Dx: Other DM Code E 11.29 Insulin: No amLODIPine (NORVASC) 10 mg tablet Take 1 tablet by mouth once daily. rivaroxaban (XARELTO) 20 mg tablet Take 20 mg by mouth daily with dinner. simvastatin (ZOCOR) 20 mg tablet Take 20 mg by mouth daily at bedtime. acetaminophen (TYLENOL EXTRA STRENGTH) 500 mg ORAL tablet Take 2 tablets by mouth every 4 hours as needed. cephALEXin (KEFLEX) 500 mg capsule Take 1 capsule by mouth four times daily for 7 days. mupirocin (BACTROBAN) 2 % ointment Apply to affected area three times a day for 7 days. FAMILY HISTORY Problem Relation Age of Onset Cancer Mother liver other (old age) Father Cancer Sister thyroid Social History Tobacco Use Smoking status: Former Years: 20 Types: Cigarettes Quit date: 07/13/1981 Years since quittin.6 Smokeless tobacco: Never Tobacco comments: Pt smoked one pack every 3 days. Vaping Use Vaping Use: Never used Substance Use Topics Alcohol use: No Drug use: No Review of Systems Constitutional: Negative for chills and fever. HENT: Negative for congestion, ear pain and sore throat. Respiratory: Negative for cough and shortness of breath. Cardiovascular: Negative for chest pain. Gastrointestinal: Negative for diarrhea and vomiting. Sk (more content not included)...[facility]08-06-2024 History of Present illness Narrative* Sean Ridley PA - 02/16/2024 12:18 PM EDT Images from the original note were not included. This note was created using [employer]. Subjective Antonio Gupta is a 83 year old female. HPI 83 year old female presents for burn of the lower back. Patient states she has been having low back issues for quite some time. She follows with her doctor for this. She states that over the pastfew weeks she has had increased low back pain and has been using a rice bag that you warm up in [facility] for her pain. She states this does help. She reports that she microwaved the rice bag toohot and burned her skin. She states that her and daughter noticed it. It was originally blistered. The blisters have now popped and is more scabbed over. She does have an area of redness still, so they wanted her to come in for evaluation. Patient states she has not been able to see the area, so is unsure what it looks like or how it has changed. She states it is occasionally painful if the scabs get caught on her shirt. She has been putting some [id number] ointment on it and bandages. Has not tried anything else for symptoms. No fevers. No other complaint. PAST MEDICAL HISTORY No date: Coronary atherosclerosis of unspecified type of vessel, united [place] or graft Comment: Stent x 2010 No date: Depressive disorder, not elsewhere classified No date: Diverticulosis of colon (without mention of hemorrhage) No date: Essential hypertension, benign No date: Heart attack (HCC) No date: Other and unspecified hyperlipidemia No date: Palpitations No date: Paroxysmal atrial fibrillation (HCC) PAST SURGICAL HISTORY No date: APPENDECTOMY 1998: COLONOSCOPY FLX DX W/COLLJ SPEC WHEN PFRMD Comment: Colonoscopy repeat 10 years 05/18/12: COLONOSCOPY FLX DX W/COLLJ SPEC WHEN PFRMD Comment: Colonoscopy 09/15/2016: COLSC FLX W/REMOVAL LESION BY HOT BX FORCEPS 09/15/2016: EGD REMOVAL TUMOR POLYP/OTHER LESION SNARE TECH 09/2010: HEART SURGERY HX Comment: stents inserted 2011: LEFT HEART CATH,PERCUTANEOUS Comment: Cardiac cath, L heart 04/2015: PACEMAKER IMPLANT 2011: PERC TRANSL COR ANGIO Comment: Percutaneous Transluminal Coronary Angio Status 03/31/2016: SVT ABLATION W/ EP COMPLETE Comment: Dr. Buitrago 1985: TOTAL ABDOMINAL HYSTERECT W/WO RMVL TUBE OVARY Comment: Hysterectomy, ROSALIO No date: W TRY ATRIOGRM HP ALLERGIES Poison Fany and Sulfa (Sulfonamide Antibiotics) MEDICATIONS glimepiride (AMARYL) 4 mg tablet Take 0.5 tablets by mouth daily with breakfast. metoprolol succinate ER (TOPROL XL) 50 mg 24 hr tablet Take 50 mg by mouth once daily. furosemide (LASIX) 40 mg tablet Take 40 mg by mouth once daily. nitroglycerin sublingual (NITROSTAT) 0.4 mg SL tablet Dissolve 1 tablet under the tongue every 5 minutes as needed for chest pain. tiZANidine (ZANAFLEX) 4 mg tablet Take 1 tablet by mouth every 8 hours as needed (muscle spasms). levothyroxine (SYNTHROID) 100 mcg tablet Take 1 tablet by mouth once daily. empagliflozin (JARDIANCE) 10 mg tablet Take 1 tablet by mouth once daily. Take 1 tablet once daily in the morning amitriptyline (ELAVIL) 50 mg tablet Take 1 tablet by mouth daily at bedtime. busPIRone (BUSPAR) 15 mg tablet Take 1 tablet by mouth three times a day. omeprazole (PRILOSEC) 40 mg capsule Take 1 capsule by mouth once daily. ketotifen fumarate (ALAWAY) 0.025 % (0.035 %) ophthalmic solution Use 1 Drop in both eyes twice daily. blood sugar diagnostic ([employer] VERIO TEST STRIPS) test strip TEST BLOOD SUGAR ONCE DAILY lancets (ONE TOUCH [employer] 33 gauge Test blood sugar(s) 1 daily. Dx: Other DM Code E 11.29 Insulin:No amLODIPine (NORVASC) 10 mg tablet Take 1 tablet by mouth once daily. rivaroxaban (XARELTO) 20 mg tablet Take 20 mg by mouth daily with dinner. simvastatin (ZOCOR) 20 mg tablet Take 20 mg by mouth daily at bedtime. acetaminophen (TYLENOL EXTRA STRENGTH) 500 mg ORAL tablet Take 2 tablets by mouth every 4 hours as needed. cephALEXin (KEFLEX) 500 mg capsule Take 1 capsule by mouth four times daily for 7 days. mupirocin (BACTROBAN) 2 % ointment Apply to affected area three times a day for 7 days. FAMILY HISTORY Problem Relation Age of Onset Cancer Mother liver other (old age) Father Cancer Sister thyroid Social History Tobacco Use Smoking status: Former Years: 20 Types: Cigarettes Quit date: 07/13/1981 Years since quittin.6 Smokeless tobacco: Never Tobacco comments: Pt smoked one pack every 3 days. Vaping Use Vaping Use: Never used Substance Use Topics Alcohol use: No Drug use: No Review of Systems Constitutional: Negative for chills and fever. HENT: Negative for congestion, ear pain and sore throat. Respiratory: Negative for cough and shortness of breath. Cardiovascular: Negative for chest pain. Gastrointestinal: Negative for diarrhea and vomiting. Skin: Positive for color change and wound. Objective BP 132/82 Pulse 88 Temp 36.1 C (96.9 F) Resp 16 Wt 90.4 kg (199 lb 4.7 oz) SpO2 96% BMI32.17 kg/m Physical Exam Vitals and nursing note reviewed. Constitutional: General: She is not in acute distress. Appearance: Normal appearance. She is not toxic-appearing. Cardiovascular: Rate and Rhythm: Normal rate and regular rhythm. Pulmonary: Effort: Pulmonary effort is normal. Breath sounds: Normal breath sounds. Skin: General: Skin is warm and dry. Findings: Burn and erythema present. Comments: Area of erythema as noted in photo above. Centralized scabbing. No vesicles. No abscess of fluctuance. No drainage. No lymphatic streaking. Neurological: Mental Status: She is alert. Assessment and Plan ASSESSMENT/PLAN: 1. Burn - ICD9: 949.0, ICD10: T30.0 - Mid back - scabbing and healing. No blistering. - Potential secondary infection - RX mupirocin and Keflex. - Follow up with PCP for wound recheck. Diagnosis and treatment plan were discussed and questions were answered to the patient's satisfaction. Pt acknowledged understanding of concepts and follow up plan. Specific signs and symptoms that would indicate the need for higher level of care were discussed in detail warranting prompt ER evaluation. LUIS FELIPE Akins [facility] Instructions* Patient Instructions* Kandi Woody MA - 02/01/2024 1:01 PM EDT Reduce the Glimepiride (amaryl) to 2 mg daily. Cut the 4 mg pill in half. Notify office if you continued to have the low blood sugar symptoms. Follow up in 6 months or sooner if needed. documented in [facility] History of Present illness Narrative* Victor M Rocha MD - 02/01/2024 12:40 PM EDT Chief Complaint Patient presents with: F/U 3 Month HPI Antonio Gupta is a 83 year old female who presents here today for 3 month follow up. Declined BMD test. Has not had TDap or RSV vaccines. No bowel, gi, or urinary issues. Hx of Colitis. Uses depends for urinary incontinence. Gets up several times a night to urinate. GERD: Sx controlled on Prilosec 40 mg daily. MGUS: Is following with Hem/Onc Dr. Baker. Had some c/o weakness last visit. Thyroid: Currently on Synthroid 100 mcg daily. This was increased last visit. Did complain of weakness last visit. HTN & A-fib: Follows with [facility]. Has pacemaker. Denies checking her BP at home. No chest pains, dizziness, or SOB. Current regimen of HCTZ 12.5 mg daily. Toprol xl 25 mg daily, Losartan 100 mg daily, Norvasc 10 mg daily, Nitro prn and Xarelto 20 mg daily. CKD: Monitored with labs. DM: Checks BS a few times a month. Denies any hypoglycemic episodes or any neuropathy sx. Is on Amaryl 4 mg daily and Jardiance 10 mg daily. Follows with Dr. Kilgore for eyes. Lipid/CAD: No exercise, tries to watch diet some. Taking Zocor 20 mg daily. Tolerating medication well, no myalgia or gi upset. She does not use salt, she is watching diet, will have 1 piece of toastin the morning with her oatmeal and will have a sausage patties once a week. Depression/REX: Stable; sleeping better with Buspar 15 mg TID and Amitriptyline 50 mg daily. Edema: bilateral foot swelling, left is worse. When she is sewing her feet hang down, sews off and on. She does elevate the legs in between sewing sessions. Swelling will improve over night. Taking Lasix 40 mg daily. Past medical history, appointments, medications, allergies reviewed. Previous Medical History PAST MEDICAL HISTORY Diagnosis Date Coronary atherosclerosis of unspecified type of vessel, united [place] or graft Stent x 2010 Depressive disorder, not elsewhere classified Diverticulosis of colon (without mention of hemorrhage) Essential hypertension, benign Heart attack (HCC) Other and unspecified hyperlipidemia Palpitations Paroxysmal atrial fibrillation (HCC) Previous Surgical History PAST SURGICAL HISTORY Procedure Laterality Date APPENDECTOMY COLONOSCOPY FLX DX W/COLLJ SPEC WHEN PFRMD 1998 Colonoscopy repeat 10 years COLONOSCOPY FLX DX W/COLLJ SPEC WHEN PFRMD 05/18/12 Colonoscopy COLSC FLX W/REMOVAL LESION BY HOT BX FORCEPS 09/15/2016 EGD REMOVAL TUMOR POLYP/OTHER LESION SNARE TECH 09/15/2016 HEART SURGERY HX 09/2010 stents inserted LEFT HEART CATH,PERCUTANEOUS 2011 Cardiac cath, L heart PACEMAKER IMPLANT 04/2015 PERC TRANSL COR ANGIO 2010 Percutaneous Transluminal Coronary Angio Status SVT ABLATION W/ EP COMPLETE 03/31/2016 Dr. Buitrago TOTAL ABDOMINAL HYSTERECT W/WO RMVL TUBE OVARY 1985 Hysterectomy, ROSALIO W TRY ATRIOGRM HP Family History FAMILY HISTORY Problem Relation Age of Onset Cancer Mother liver other (old age) Father Cancer Sister thyroid Patient Allergies ALLERGIES Allergen Reactions Poison Fany Sulfa (Sulfonamide * Hives Current Medications Current Outpatient Medications on File Prior to Visit Medication Sig metoprolol succinate ER (TOPROL XL) 50 mg 24 hr tablet Take 50 mg by mouth once daily. furosemide (LASIX) 40 mg tablet Take 40 mg by mouth once daily. potassium chloride ER (KLOR-CON) 20 mEq tablet Take 20 mEq by mouth once daily. nitroglycerin sublingual (NITROSTAT) 0.4 mg SL tablet Dissolve 1 tablet under the tongue every 5 minutes as needed for chest pain. tiZANidine (ZANAFLEX) 4 mg tablet Take 1 tablet by mouth every 8 hours as needed (muscle spasms). levothyroxine (SYNTHROID) 100 mcg tablet Take 1 tablet by mouth once daily. empagliflozin (JARDIANCE) 10 mg tablet Take 1 tablet by mouth once daily. Take 1 tablet once daily in the morning amitriptyline (ELAVIL) 50 mg tablet Take 1 tablet by mouth daily at bedtime. busPIRone (BUSPAR) 15 mg tablet Take 1 tablet by mouth three times a day. omeprazole (PRILOSEC) 40 mg capsule Take 1 capsule by mouth once daily. glimepiride (AMARYL) 4 mg tablet Take 1 tablet by mouth daily with breakfast. ketotifen fumarate (ALAWAY) 0.025 % (0.035 %) ophthalmic solution Use 1 Drop in both eyes twice daily. blood sugar diagnostic (HeadplayUCH VERIO TEST STRIPS) test strip TEST BLOOD SUGAR ONCE DAILY lancets (ONE TOUCH DELICA) 33 gauge Test blood sugar(s) 1 daily. Dx: Other DM Code E 11.29 Insulin:No amLODIPine (NORVASC) 10 mg tablet Take 1 tablet by mouth once daily. rivaroxaban (XARELTO) 20 mg tablet Take 20 mg by mouth daily with dinner. simvastatin (ZOCOR) 20 mg tablet Take 20 mg by mouth daily at bedtime. acetaminophen (TYLENOL EXTRA STRENGTH) 500 mg ORAL tablet Take 2 tablets by mouth every 4 hours as needed. No current facility-administered medications on file prior to visit. Social History Social History Tobacco Use Smoking status: Former Years: 20 Types: Cigarettes Quit date: 07/13/1981 Years since quittin.5 Smokeless tobacco: Never Tobacco comments: Pt smoked one pack every 3 days. Vaping Use Vaping Use: Never used Substance Use Topics Alcohol use: No Drug use: No EXAM: BP 124/74 Pulse 88 Resp 16 Wt 90.1 kg (198 lb 11.2 oz) BMI 32.07 kg/m General Appearance: Well appearing, alert, in no acute distress, well-hydrated, well nourished. andOverweight. Lungs: Lungs clear to auscultation. No wheezing, rhonchi, rales.. Heart: RRR without murmur, gallop, or rubs. No ectopy. Extremities: no swelling of feet or ankles Health Maintenance List RSV Vaccine(1 - 1-dose 60+ series) Never done Bone Density Screening due on 10/30/2010 DTaP,Tdap,Td Vaccine(2 - Td or Tdap) due on 10/04/2018 Diabetic Foot Exam due on 09/17/2021 Shingrix Vaccine(1 of 2) due on 04/28/2024 Covid-19 Vaccine( - 2022- season) due on 10/29/2024 Influenza Vaccine(1) due on 03/13/2024 HbA1C due on 07/29/2024 Dilated Retinal Exam due on 09/08/2024 Urine Albumin:Creatinine Ratio due on 10/22/2024 LDL Cholesterol due on 10/22/2024 Advance Directive Discussion Completed Pneumococcal Vaccine: 65+ Completed Data reviewed Appointment on 01/27/2024 Component Date Value Hemoglobin A1C 01/27/2024 6.8 (H) Estimated Average Glucose 01/27/2024 148 TSH 01/27/2024 0.920 WBC 01/27/2024 5.86 RBC 01/27/2024 4.18 Hemoglobin 01/27/2024 11.6 Hematocrit 01/27/2024 37.9 MCV 01/27/2024 90.7 MCH 01/27/2024 27.8 MCHC 01/27/2024 30.6 RDW-CV 01/27/2024 19.2 (H) Platelet Count 01/27/2024 344 MPV 01/27/2024 11.4 Neutrophils % 01/27/2024 65.3 Abs Neut 01/27/2024 3.82 Lymphocytes % 01/27/2024 19.6 Abs Lymph 01/27/2024 1.15 Monocytes % 01/27/2024 11.6 Abs [place] 01/27/2024 0.68 Eosinophils % 01/27/2024 2.7 Abs Eosin 01/27/2024 0.16 Basophils % 01/27/2024 0.5 Abs Baso 01/27/2024 0.03 Immature Granulocytes % 01/27/2024 0.3 Abs Immature Gran 01/27/2024 <0.03 NRBC 01/27/2024 0.0 Absolute nRBC 01/27/2024 <0.01 Diff Type 01/27/2024 Auto Glucose 01/27/2024 131 (H) BUN 01/27/2024 16 Creatinine 01/27/2024 1.20 (H) Sodium 01/27/2024 137 Potassium 01/27/2024 4.5 Chloride 01/27/2024 101 CO2 01/27/2024 24 Anion Gap 01/27/2024 12 Calcium, Total 01/27/2024 9.7 Estimated Glomerular Shane* 01/27/2024 45 (L) Office Visit on 01/15/2024 Component Date Value GLUCOSE UA (POCT) 01/15/2024 500 (A) BILIRUBIN UA (POCT) 01/15/2024 Negative KETONE UA (POCT) 01/15/2024 Negative SPECIFIC GRAVITY UA (POC* 01/15/2024 1.015 HEMOGLOBIN/BLOOD UA (PO* 01/15/2024 Moderate (A) PH UA (POCT) 01/15/2024 6.5 PROTEIN UA (POCT) 01/15/2024 30 (A) UROBILINOGEN UA (POCT) 01/15/2024 0.2 NITRITE UA (POCT) 01/15/2024 Negative LEUKOCYTES UA (POCT) 01/15/2024 Large (A) COLOR UA (POCT) 01/15/2024 Dark yellow CLARITY UA (POCT) 01/15/2024 Cloudy Culture, Urine 01/15/2024 50,000-<100,000 CFU/ml Normal urogenital jaspreet Appointment on 12/23/2023 Component Date Value WBC 12/23/2023 6.57 RBC 12/23/2023 4.15 Hemoglobin 12/23/2023 10.9 (L) Hematocrit 12/23/2023 36.2 MCV 12/23/2023 87.2 MCH 12/23/2023 26.3 MCHC 12/23/2023 30.1 (L) RDW-CV 12/23/2023 19.9 (H) Platelet Count 12/23/2023 355 MPV 12/23/2023 9.7 Neutrophils % 12/23/2023 64.2 Abs Neut 12/23/2023 4.22 Lymphocytes % 12/23/2023 21.5 Abs Lymph 12/23/2023 1.41 Monocytes % 12/23/2023 10.5 Abs [place] 12/23/2023 0.69 Eosinophils % 12/23/2023 2.6 Abs Eosin 12/23/2023 0.17 Basophils % 12/23/2023 0.9 Abs Baso 12/23/2023 0.06 Immature Granulocytes % 12/23/2023 0.3 Abs Immature Gran 12/23/2023 <0.03 NRBC 12/23/2023 0.0 Absolute nRBC 12/23/2023 <0.01 Diff Type 12/23/2023 Auto Ferritin 12/23/2023 138.0 Iron 12/23/2023 36 (L) TIBC 12/23/2023 297 Transferrin Saturation 12/23/2023 12.1 (L) Retic % 12/23/2023 2.2 (H) Abs Retic 12/23/2023 0.093 ASSESSMENT/PLAN: 1. Type 2 diabetes mellitus with other diabetic kidney complication, without long-term current use of insulin (HCC) - ICD9: 250.40, ICD10: E11.29 (primary diagnosis) - Improving control - Continue current medications - Decrease Amaryl 4 mg to 2 mg daily (will cut the pill in half) - Counseled on healthy diet and regular exercise - Discussed need for and benefit of weight loss. BMI 32.07 kg/(m^2) - Notify office if she continues to get low blood sugars 2. Chronic diastolic CHF (congestive heart failure) (HCC) - ICD9: 428.32, 428.0, ICD10: I50.32 - Continue current medications. Continue with Cardio 3. Paroxysmal atrial fibrillation (HCC) - ICD9: 427.31, ICD10: I48.0 Continue current medications. Continue with Cardio 4. Essential hypertension, benign - ICD9: 401.1, ICD10: I10 - Controlled - Continue current medications - Recommend home blood pressure monitoring, to bring results to next visit - Encouraged sodium restriction, DASH or Mediterranean diet - Recommend regular aerobic exercise - Discussed need for and benefit of weight loss. BMI 32.07 kg/(m^2) 5. Hyperlipidemia, unspecified hyperlipidemia type - ICD9: 272.4, ICD10: E78.5 - Improving control - Continue current medications - Counseled on healthy diet and regular exercise - Discussed need for and benefit of weight loss. BMI 32.07 kg/(m^2) 6. Gastroesophageal reflux disease, unspecified whether esophagitis present - ICD9: 530.81, ICD10: K21.9 - controlled Continue current medications. 7. Hypothyroidism, unspecified type - ICD9: 244.9, ICD10: E03.9 - Instructed patient on importance of taking on an empty stomach either first thing in the morning or at bedtime. Stable Continue current medications. 8. MGUS (monoclonal gammopathy of unknown significance) - ICD9: 273.1, ICD10: D47.2 Continue with Hem/onc 9. Iron deficiency anemia, unspecified iron deficiency anemia type - ICD9: 280.9, ICD10: D50.9 Continue to monitor with labs 10. 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HCC) - ICD9: 296.99, ICD10: F33.8 Stable Continue current medications. 11. Bilateral leg edema - ICD9: 782.3, ICD10: R60.0 Continue current medications. Keep legs elevated when able Follow up in 6 months with fasting labs prior. I agree with the Chief Complaint, ROS, and Past Histories independently gathered by the clinical medical support specialist and the remaining scribed note accurately describes my personal service to the patient. Medical Decision Making: Problems: Moderate: 2+ stable chronic illnesses Data: Unique test result(s) reviewed: 3+ Unique test(s) ordered: 3+ Risk: Moderate: Drug management Medical Decision Making Level: 4 - Moderate Victor M Rocha MD The documentation for this note was completed by Kandi Woody MA acting as scribe for Victor M Rocha MD. February 01, 2024 12:33 PM. Kandi Woody MA documented [facility] Telephone encounter Note * Telephone Encounter - Rosalba Casey MA - 01/17/2024 8:27 AM EDT Pt was notified of the results. Pt verbalized understanding. Rosalba Casey MA [facility]07-07-[facility] Miscellaneous Notes* Telephone Encounter - Rosalba Casey MA - 01/17/2024 8:27 AM EDT Pt was notified of the results. Pt verbalized understanding. Rosalba Casey MA * Telephone Encounter - Kortney Ruiz APRN.CNP - 01/17/2024 8:12 AM EDT Patient just had normal jaspreet in her urine. No significant bacterial growth in urine culture patient can continue antibiotic get it if it is helping. If patient's symptoms are persistent patient needs to follow-up with primary care. documented in this [facility]07-[facility]24 Telephone encounter Note * Telephone Encounter - Kortney Ruiz APRN.CNP - 01/17/2024 8:12 AM EDT Patient just had normal jaspreet in her urine. No significant bacterial growth in urine culture patient can continue antibiotic get it if it is helping. If patient's symptoms are persistent patient needs to follow-up with primary care. [facility] Work Phone: [phone] 182-564107-05-2024 History of Present illness Narrative* Daniel Bucio MD - 01/15/2024 10:52 AM EDT Patient presents with: Urinary Problem: Burning, urgency, pressure x 2 weeks HPI: Symptoms for 2 weeks. She had a catheter during CHF hospitalization last month and has had symptomssince discharge. Dysuria: Yes Frequency: Yes Hematuria: No Nausea: No Fever or chills: No Back pain: No Abdominal pain: No Prior UTI: Yes, multiple MEDICATIONS: Current Outpatient Medications Medication Sig metoprolol succinate ER (TOPROL XL) 50 mg 24 hr tablet Take 50 mg by mouth once daily. furosemide (LASIX) 40 mg tablet Take 40 mg by mouth once daily. potassium chloride ER (KLOR-CON) 20 mEq tablet Take 20 mEq by mouth once daily. nitroglycerin sublingual (NITROSTAT) 0.4 mg SL tablet Dissolve 1 tablet under the tongue every 5 minutes as needed for chest pain. tiZANidine (ZANAFLEX) 4 mg tablet Take 1 tablet by mouth every 8 hours as needed (muscle spasms). levothyroxine (SYNTHROID) 100 mcg tablet Take 1 tablet by mouth once daily. empagliflozin (JARDIANCE) 10 mg tablet Take 1 tablet by mouth once daily. Take 1 tablet once daily in the morning amitriptyline (ELAVIL) 50 mg tablet Take 1 tablet by mouth daily at bedtime. busPIRone (BUSPAR) 15 mg tablet Take 1 tablet by mouth three times a day. omeprazole (PRILOSEC) 40 mg capsule Take 1 capsule by mouth once daily. glimepiride (AMARYL) 4 mg tablet Take 1 tablet by mouth daily with breakfast. ketotifen fumarate (ALAWAY) 0.025 % (0.035 %) ophthalmic solution Use 1 Drop in both eyes twice daily. blood sugar diagnostic (ONETOUCH VERIO TEST STRIPS) test strip TEST BLOOD SUGAR ONCE DAILY lancets (ONE TOUCH DELICA) 33 gauge Test blood sugar(s) 1 daily. Dx: Other DM Code E 11.29 Insulin:No amLODIPine (NORVASC) 10 mg tablet Take 1 tablet by mouth once daily. rivaroxaban (XARELTO) 20 mg tablet Take 20 mg by mouth daily with dinner. simvastatin (ZOCOR) 20 mg tablet Take 20 mg by mouth daily at bedtime. acetaminophen (TYLENOL EXTRA STRENGTH) 500 mg ORAL tablet Take 2 tablets by mouth every 4 hours as needed. No current facility-administered medications for this visit. ALLERGIES: ALLERGIES Allergen Reactions Poison Fany Sulfa (Sulfonamide * Hives VITALS: BP 128/58 Pulse 91 Temp 36.4 C (97.5 F) Resp 22 Wt 91 kg (200 lb 9.9 oz) SpO2 95% BMI 32.38 kg/m PHYSICAL EXAM: GEN: NAD HEENT: EOMI, conjunctiva clear, HEART: regular rate and rhythm, no murmurs LUNGS: clear to auscultation, no wheezes or crackles, no increased WOB ABDOMEN: Soft, nondistended, no masses, no suprapubic tenderness BACK: No CVA tenderness Latest Ref Rng 10/23/2023 eGFR >=60 mL/min/1.73m 32 (L) ASSESSMENT/PLAN: 1. Urgency of urination - ICD9: 788.63, ICD10: R39.15 - UA DIP, URINE (POC) -positive for glucose, blood, protein, and leukocyte esterase. Likely urinarytract infection. Reviewed lasix will produce increased urination as a side effect. - URINE CULTURE - CEPHALEXIN 500 MG CAPSULE Daniel Bucio MD documented [facility] History of Present illness Narrative* Brittny Rivero RN - 01/01/2024 3:30 PM EDT TCM Home Visit Referral Source of Stratification: TCM HUB Hospital Admission Status: Discharged Readmission Risk Score: n/a Patient's zip code: [address] Is zip code within program service area: No Patient meets program referral criteria: No Patient does not qualify for High Risk TCM Home Visit program due to: Readmission Risk Score does not meet criteria Disposition: Patient does not qualify for HRTIC, will provide TCM outreach follow-up for 30-days Brittny Rivero RN January 01, 2024 3:30 PM TRANSITIONAL CARE MANAGEMENT (TCM) COMMUNITY MONITORING PROGRAM Provider Action/FYI: Initial TCM Outreach Navigation Please assist with scheduling TCM Hospital Discharge Follow up. TCM Eligible Until 12/31/23 Thank you Future Appts 01/31 Famp WSTR 02/23 Lab WSTR Patient states is feeling better, oh may yes much better, though she was feeling bad do to old age Dry cough, had before, not bad, just have had for long time Denies CP,sob,wheezing, fever/chills, n/v Appetite good eating and hydrating, trying hard to watch here salt intake, reading everything Voiding and bm without difficulty, have Colitis,having hard time with BM, advise senna, colace, taken Miralax this am, advised another dose with warm prune juice, patient agreed Ambulating up ad jabari have Rolator name Yesenia all the time Fatigue denies, just old, take a while to do house work, is a great help, he does most everything Александр le edema, little swelling in ankle, had chicken with salt in it Today's weight 201.2 after clothes on been Denies questions, concerns regarding medications, self care , no issues, stable SUMMARY: Discharge Network Status: Oul-or-Cvbmvkz (OON) Discharge Pt discharged from [facility] on [facility] . Admitted for: Sob,Resp Failure Pacemaker check Dyspnea / hypoxemia Decompensated CHF DM / CKD / ASCVD Contact made with patient: Yes Hi my name is Brittny Rivero RN and I am calling [facility] the [facility] on behalf of your PCP, Victor M Rocha MD I understand you were recently in the hospital so I am calling to check in with you to ensure you are feeling well now that you're home. May I ask you a few questions related to your hospital stay and well-being? Yes Contact with patient post discharge, spoke to patient. Patient identified by name and . Do you feel your health is BETTER, WORSE, or the SAME since leaving the hospital? Better ACTION TAKEN: Patient indicated symptoms are better or same, no action required. Continue outreach. MEDICATIONS: Many patients have questions or concerns about their medications once they are home. Do you have any questions about taking your medications or which medication you should be on? No Do you need any medication refills at this time, including any of the medications you might take only when needed? No ACTION TAKEN: No action required For RNs or Pharmacy completing outreach ONLY, was a medication review completed? No SOCIAL: We would like to make sure you have what you need so that your basics needs are met - including your personal safety, food, housing and medications. Would you like to speak with a social work executive officer special warfare team to help give you support for any of these needs? No It can be normal to feel anxious or down during a time like this. Would you like to talk to a mental health professional about how you have been feeling? No ACTION TAKEN: No action taken DISCHARGE INTRUCTIONS: Your discharge instructions / After Visit Summary (AVS) are important in guiding you through the recovery process. Do you have any questions related to your discharge instructions? No Do you have all the necessary equipment and supplies at home? Yes ACTION TAKEN: No action required I would like to help you schedule a hospital follow-up virtual or telephone visit with your PCP. This is a great way for you to connect with your provider to ensure you have safely transitioned home.If you are agreeable, I will send your request to a cardiac cath lab radiology technologist who will contact and assist you with that appointment. This will give you an opportunity to ask any questions or address any concerns youmay have with your PCP. Inform the patient that if they have any questions or concerns prior to that appointment, to call their PCP's office right away. ACTION TAKEN: No action required, patient already has an appointment scheduled. Your doctor would like us to remind you of the recommendations regarding the coronavirus (Covid19) outbreak: Avoid public places as much as possible. Avoid close contact (within 6 feet) with others you don t live with, especially if they are sick. Stay home if you are sick. Wash your hands regularly for at least 20 seconds with soap and water. Wear a cloth mask in public places to help reduce community spread. Do not go to your Doctor s office unless instructed to do so. For any non- emergency symptoms, call your Doctor s office to get instructions on how to manage (we might recommend a telephone or virtualvisit). For emergency symptoms, proceed to Emergency Department as usual but inform them of cough and fever symptoms MATTHEW if present (or call on the way if possible). SILVIO Education Ordered -: Aisha Rivero RN January 01, 2024 4:39 PM documented in this encounterBu[facility]06-21-[facility]24 Telephone encounter Note * Telephone Encounter - Shara Delgado - 01/01/2024 11:58 AM EDT Spoke with patient and scheduled as directed. Shara Bragg [facility] Miscellaneous Notes* Telephone Encounter - Shara Delgado - 01/01/2024 11:58 AM EDT Spoke with patient and scheduled as directed. Shara Delgado * Telephone Encounter - Vesta Jett - 12/29/2023 8:39 AM EDT 1st attempt. Unable to leave message. Voicemail not set up. No My chart. Patient to schedule - -CBC/IRON STUDIES/CMP then OV with Dr. Baker in about 8 weeks * Telephone Encounter - Naomi Chase LPN - 12/29/2023 8:10 AM EDT Please schedule for CBC/iron studies/CMP then OV with Dr. Baker in about 8 weeks. Left detailed message on identified voicemail concerning recent lab results. Informed PSS will be reaching out to her to get F/U scheduled. Naomi Chase LPN * Telephone Encounter - Joshua Baker DO - 12/28/2023 6:15 PM EDT Iron and hemoglobin came up with iron infusions. Please schedule for CBC/iron studies/CMP then OV with me in about 8 weeks. documented in this encounterBu[facility]06-18-[facility]24 Telephone encounter Note * Telephone Encounter - Vesta Jett - 12/29/2023 8:39 AM EDT 1st attempt. Unable to leave message. Voicemail not set up. No My chart. Patient to schedule - -CBC/IRON STUDIES/CMP then OV with Dr. Baker in about 8 weeks [facility] Work Phone: 1(266) 889-208106-18-2024 Telephone encounter Note* Telephone Encounter - Naomi Chase LPN - 12/29/2023 8:10 AM EDT Please schedule for CBC/iron studies/CMP then OV with Dr. Baker in about 8 weeks. Left detailed message on identified voicemail concerning recent lab results. Informed PSS will be reaching out to her to get F/U scheduled. Naomi Chase LPN [facility]-17[facility] Telephone encounter Note* Telephone Encounter - Joshua Baker DO - 12/28/2023 6:15 PM EDT Iron and hemoglobin came up with iron infusions. Please schedule for CBC/iron studies/CMP then OV with me in about 8 weeks. [facility] Work Phone: 1(149) 921-737306-13-2024 History of Present illness Narrative* Victor M Rocha MD - 12/24/2023 3:40 PM EDT Transitional Care Management TCM Eligibility Documentation Program: Transitional Care Management Status: Identified Start Date: 12/17/2023 Responsible Staff: Brittny Rivero RN Discharge date: 12/17/2023 (Program start) Date of initial contact: Initial contact Target status: Not completed Provider Documentation Antonio Gupta is a 83 year old female here today for a follow up from recent hospitalization. I have reviewed the patient's hospital course including discharge summary, discharge medications , and follow up needs with the patient and any family members present at today's visit. HPI 7 day TCM Pt was admitted to [facility] on 12/14/23 after presenting to ER with Shortness of breath, acute hypoxemic respiratory failure. While admitted she had Echo done. Her Potassium level was rechecked before discharge on 12/17/23 with result still low at 3.4. She did not qualify for home O2. She was discharged home on 12/17/23 on Potassium Chloride 20 mEq 1 pill once daily, Lasix 40 mg once daily, and Metoprolol Succinate was increased to 50 mg once daily. She was discharged with dx of Heart failure, Hx of Coronary Artery Stent Placement, Presence of cardiac pacemaker, long standing persistent A-fib, HTN, and Anemia. Pt today states that she does feel better, actually great compared to when she went into the ED. Still does have a little bit of wheezing, but has had this for quite some time. Now able to do light house work. Did not qualify for home O2. Pt was d/c home with Lasix 40 mg once daily. Cardio - Pt has extensive cardiac hx. Did have regimen changed while admitted. Her Losartan 100 mg daily and HCTZ 12.5 mg was d/c. Pt's Toprol XL was increased from 25 mg to 50 mg daily and Lasix 40 mg once daily was added. Pt currently is still taking Amlodipine 10 mg once daily, Xarelto 20 mg once daily and Simvastatin 20 mg once daily. Pt has an appt with Cardiology on 02/18/24 for her Annual follow up. Pt made aware she should contact them to see if she needs to be seen sooner. Potassium - Was given Klor-Con 20 meq once daily due to low potassium. Requesting refill on Nitro, has not had this in quite some time. Below copied from [facility]: MDM Narrative Medical decision making narrative: HISTORY OF PRESENT ILLNESS: 83-year-old female presents with shortness of breath. Notes progressive symptoms of dyspnea on exertion for the last 6 weeks. No cough, no fever, no chills. No bleeding diathesis. Notes compliance with Xarelto. No chest pain. Notes bilateral foot swelling otherwise denies orthopnea. The patient denies recent surgery in the last 4 weeks or immobilization in the last 3 days, denies previous diagnosis of DVT or PE, hemoptysis, unilateral leg swelling or malignancy with treatment the last 6 months or palliative. No estrogen use noted. Patient notes history of smoking 50 years ago. Per nursing report she is 84% in triage. No she is taking iron infusions Discharge Diagnosis (1) Heart failure: Status: Acute Code(s): I50.9 - Heart failure, unspecified Qualifiers: Heart failure chronicity: acute on chronic Heart failure type: diastolic Qualified Code(s): I50.33 - Acute on chronic diastolic (congestive) heart failure (2) History of coronary artery stent placement: Status: Resolved Code(s): Z95.5 - Presence of coronary angioplasty implant and graft (3) Presence of cardiac pacemaker: Status: Resolved Code(s): Z95.0 - Presence of cardiac pacemaker (4) Longstanding persistent atrial fibrillation: Status: Chronic Code(s): I48.11 - Longstanding persistent atrial fibrillation (5) Essential (primary) hypertension: Status: Chronic Code(s): I10 - Essential (primary) hypertension (6) Anemia: Status: Acute Code(s): D64.9 - Anemia, unspecified Plan Patient is an 83-year-old lady who presented with a 4-week history of progressive shortness of breath. Patient was found to be hypoxic with oxygen saturation 84% on room air on admission. An assessment of acute hypoxic respiratory failure secondary to acute congestive heart failure made placed on noninvasive ventilation BiPAP admitted to the intensive care unit for subsequent management 1. Acute hypoxic respiratory failure - Secondary to congestive heart failure. Admitted to the intensive care unit with treatment of the underlying condition as well as use of noninvasive ventilation BiPAP - 12/16/2023; patient was weaned off BiPAP currently on 4 L flow per minute nasal cannula - Patient was weaned off oxygen was assessed for home oxygen but she did not qualify 2. Acute on chronic congestive heart failure with preserved ejection fraction - Patient presented with respiratory failure placed on BiPAP. Admitted to the intensive care unit managed with Lasix drip 2D echo from 03/17/2023 demonstrated normal LV function. Placed on strict inputand output Daily weight I's and O's and repeat echo ordered. - 12/16/2023; patient responding to diuretic therapy -12/17/2023 echo results as above Normal LV size. Left ventricular systolic function is normal. The left ventricular ejection fraction is 55 %. Pulmonary artery systolic pressure is 50 mmHg. The left atrium is severely enlarged. The right atrium is severely enlarged 3. Paroxysmal A-fib - Rate controlled on metoprolol on systemic anticoagulation with rivaroxaban 4. Hypertension - Blood pressure controlled, home medications continued with dose adjustment as needed 5. Dyslipidemia -Patient is on statin therapy, continued at home dose 6. Class I obesity with BMI of 32.1 - Complicating care weight loss advised 7. Chronic kidney disease stage III - Baseline creatinine 1.3 creatinine on admission was 1.56 suspected to be secondary to hypoperfusion from patient's CHF do expect improvement with diuresis 8. Hypokalemia - Corrected per protocol repeat labs ordered in a.m. - 12/16/2023; patient potassium significantly down, additional replacement given patient placed on scheduled potassium replacement 9. Anemia - Secondary to chronic disorder monitoring H&H and transfuse if patient becomes symptomatic or hemoglobin falls below 7 10. Diabetes mellitus type II -patient's oral hypoglycemics held. Placed on long acting insulin, Accu-Cheks a.c. and at bedtime and covered with sliding scale insulin 11. Conduction system disorder - Status post pacemaker placement 12. DVT prophylaxis - Patient is on rivaroxaban Time spent in the patient's overall evaluation,decision-making process, review of diagnostic data, adjustment of management, discussion with other providers, nursing nursing and ancillary staff involved in patient's care documentation, 35 Minutes PHYSICAL EXAMINATION BP 124/66 (BP Site: Left Arm, BP Position: Sitting, BP Cuff Size: Large Adult) Pulse 90 Resp 20 Wt 92.6 kg (204 lb 3.2 oz) SpO2 94% BMI 32.96 kg/m GENERAL: well appearing, alert, in no acute distress HEART: Irregularly irregular LUNGS: clear to auscultation, no wheezing, rhonchi, or crackles EXTREMITIES: no lower extremity edema. No skin discoloration. ASSESSMENT/PLAN: 1. Chronic diastolic CHF (congestive heart failure) (HCC) - ICD9: 428.32, 428.0, ICD10: I50.32 (primary diagnosis) - New diagnosis - Continue current medications 2. Coronary artery disease involving [place] coronary artery of united [place] heart without angina pectoris- ICD9: 414.01, ICD10: I25.10 - NITROGLYCERIN 0.4 MG SUBLINGUAL TABLET 3. Atherosclerotic heart disease of [place] coronary artery with other forms of angina pectoris (HCC) - ICD9: 414.01, 413.9, ICD10: I25.118 4. Essential hypertension, benign - ICD9: 401.1, ICD10: I10 - Controlled - Continue current medications - Recommend home blood pressure monitoring, to bring results to next visit - Encouraged sodium restriction, DASH or Mediterranean diet - Recommend regular aerobic exercise 5. Paroxysmal atrial fibrillation (HCC) - ICD9: 427.31, ICD10: I48.0 6. Iron deficiency anemia, unspecified iron deficiency anemia type - ICD9: 280.9, ICD10: D50.9 Follow with Hematology Just finished iron infusions 7. MGUS (monoclonal gammopathy of unknown significance) - ICD9: 273.1, ICD10: D47.2 Follow with Hematology 8. Hypothyroidism, unspecified type - ICD9: 244.9, ICD10: E03.9 - Instructed patient on importance of taking on an empty stomach either first thing in the morning or at bedtime. 9. Type 2 diabetes mellitus with other diabetic kidney complication, without long-term current use of insulin (HCC) - ICD9: 250.40, ICD10: E11.29 - Controlled Follow up in 1 month as planned, with labs prior Victor M Rocha MD documented in this encounterBu[facility]06-12-[facility]24 Telephone encounter Note * Telephone Encounter - Shara Jung RN - 12/23/2023 2:13 PM EDT Pt was admitted for CHF. States she has a lot of new meds but is unable to state what they are and what dosage. Advised pt to take new meds to PCP appt scheduled for tomorrow so they are able to update med list. Pt stated understanding. [facility] Miscellaneous Notes* Telephone Encounter - Shara Jung RN - 12/23/2023 2:13 PM EDT Pt was admitted for CHF. States she has a lot of new meds but is unable to state what they are and what dosage. Advised pt to take new meds to PCP appt scheduled for tomorrow so they are able to update med list. Pt stated understanding. documented in this encounterBu[facility]06-03-2024 Telephone encounter Note * Telephone Encounter - Melissa Doherty - 12/14/2023 2:13 PM EDT Cancelled as directed. Melissa Julian [facility]06-03-2024 Miscellaneous Notes* Telephone Encounter - Melissa Doherty - 12/14/2023 2:13 PM EDT Cancelled as directed. Melissa Julian * Telephone Encounter - Marimar Gutierrez LPN - 12/14/2023 1:49 PM EDT Admitted to ICU [facility]. Please cancel. Marimar Gutierrez LPN * Telephone Encounter - Joshua Baker DO - 12/14/2023 1:32 PM EDT Noted. Thank you. Joshua Baker DO * Telephone Encounter - Vesta Jett - 12/14/2023 9:54 AM EDT Keila with [facility] called stating they are sending patient to [facility]. Patient is scheduled today for labs and iron. She states patient may not be here for appointments. Left appointments on schedule for now. documented in this encounterBu[facility]06-03-2024 Telephone encounter Note * Telephone Encounter - Marimar Gutierrez LPN - 12/14/2023 1:49 PM EDT Admitted to ICU [facility]. Please cancel. Marimar Gutierrez LPN [facility]06-03-[facility] Telephone encounter Note* Telephone Encounter - Joshua Baker DO - 12/14/2023 1:32 PM EDT Noted. Thank you. Joshua Baker DO [facility] Work Phone: [phone]) 721-962506-03-2024 Telephone encounter Note* Telephone Encounter - Vesta Jett - 12/14/2023 9:54 AM EDT Keila with [facility] called stating they are sending patient to [facility]. Patient is scheduled today for labs and iron. She states patient may not be here for appointments. Left appointments on schedule for now. [facility] Work Phone: 1(635) 734-881405-31-2024 Nurse Note* Shara Jung RN - 12/11/2023 2:50 PM EDT Pt advised to f/u with concrete block layer regarding low BP. States she has a BP cuff at home but rarely uses it. Advised to start monitoring twice a day and keep a log. Contact Dr. Root's office with update. Pt stated understanding. [facility]-31-[facility] Nurse Note* Shara Jung RN - 12/11/2023 2:50 PM EDT Pt advised to f/u with concrete block layer regarding low BP. States she has a BP cuff at home but rarely uses it. Advised to start monitoring twice a day and keep a log. Contact Dr. Root's office with update. Pt stated understanding. documented in this encounterBucyrus [facility] Hospital05-17-2024 Telephone encounter Note * Telephone Encounter - Cesar Sesay - 11/27/2023 9:42 AM EDT The patient is active with Medicare A & B along with [employer]. The patient's financial responsibility should be $0 for each treatment in 2023 once the OOP has been reached. The patient's primary insurance is expected to pay the first 80% of the financial responsibility and the secondary insurance is expected to pay the remaining 20%. The patient does not have a cancer diagnosis or a chemo/r adiation regimen. No further Financial Navigator intervention is needed at this time. [facility] Miscellaneous Notes* Telephone Encounter - Cesar Sesay - 11/27/2023 9:42 AM EDT The patient is active with Medicare A & B along with [employer]. The patient's financial responsibility should be $0 for each treatment in 2023 once the OOP has been reached. The patient's primary insurance is expected to pay the first 80% of the financial responsibility and the secondary insurance is expected to pay the remaining 20%. The patient does not have a cancer diagnosis or a chemo/r adiation regimen. No further Financial Navigator intervention is needed at this time. documented in this encounterBucyrus [facility] Hospital05-14-2024 Telephone encounter Note * Telephone Encounter - Pam Hollingsworth LISW - 11/24/2023 12:33 PM EDT Pt noted on [facility] 1st time treatment report. Pt has a non-oncology regimen. No social work followup indicated. THANH Edmond-S [facility]05-14-2024 Miscellaneous Notes* Telephone Encounter - Pam Hollingsworth LISW - 11/24/2023 12:33 PM EDT Pt noted on [facility] 1st time treatment report. Pt has a non-oncology regimen. No social work followup indicated. THANH Edmond-S documented in this encounterBucyrus Community Hospital05-13-2024 History of Present illness Narrative* Victor M Rocha MD - 11/23/2023 2:40 PM EDT Chief Complaint Patient presents with: Pain, Back HPI Antonio Gupta is a 83 year old female who presents here today for pain. No falls. Uses a cane. Pt c/o right side lower back/hip pain and muscle spasms off and on x 1 month. Rates pain 0/10 at this time, spasms, throbbing, tightness. She states the pain just comes one, does not seem to be triggered with movement or activity, can be fine and then the pain just started. She has been using heat,massage, biofreeze, Tylenol but that doesn't help, found some old Percocet that she has been taking1 pill at bedtime to help her sleep and those have helped the most, took one Thurs, Fri, Sat. She denies any injury. No numbness or tingling in the legs or pelvic region. No urinary sx. No gi issues. Anemia: She is scheduled to start iron infusions with Hem/Onc. Heart stable; no unusual chest pain, SOB. Kidney disease stable, monitored with labs Past medical history, appointments, medications, allergies reviewed. Previous Medical History PAST MEDICAL HISTORY Diagnosis Date Coronary atherosclerosis of unspecified type of vessel, [place] or graft Stent x 2010 Depressive disorder, not elsewhere classified Diverticulosis of colon (without mention of hemorrhage) Essential hypertension, benign Heart attack (HCC) Other and unspecified hyperlipidemia Palpitations Paroxysmal atrial fibrillation (HCC) Previous Surgical History PAST SURGICAL HISTORY Procedure Laterality Date APPENDECTOMY COLONOSCOPY FLX DX W/COLLJ SPEC WHEN PFRMD 1998 Colonoscopy repeat 10 years COLONOSCOPY FLX DX W/COLLJ SPEC WHEN PFRMD 05/18/12 Colonoscopy COLSC FLX W/REMOVAL LESION BY HOT BX FORCEPS 09/15/2016 EGD REMOVAL TUMOR POLYP/OTHER LESION SNARE TECH 09/15/2016 HEART SURGERY HX 09/2010 stents inserted LEFT HEART CATH,PERCUTANEOUS 2010 Cardiac cath, L heart PACEMAKER IMPLANT 04/2015 PERC TRANSL COR ANGIO 2010 Percutaneous Transluminal Coronary Angio Status SVT ABLATION W/ EP COMPLETE 03/31/2016 Dr. Buitrago TOTAL ABDOMINAL HYSTERECT W/WO RMVL TUBE OVARY 1985 Hysterectomy, ROSALIO W TRY ATRIOGRM HP Family History FAMILY HISTORY Problem Relation Age of Onset Cancer Mother liver other (old age) Father Cancer Sister thyroid Patient Allergies ALLERGIES Allergen Reactions Poison Fany Sulfa (Sulfonamide * Hives Current Medications Current Outpatient Medications on File Prior to Visit Medication Sig levothyroxine (SYNTHROID) 100 mcg tablet Take 1 tablet by mouth once daily. empagliflozin (JARDIANCE) 10 mg tablet Take 1 tablet by mouth once daily. Take 1 tablet once daily in the morning amitriptyline (ELAVIL) 50 mg tablet Take 1 tablet by mouth daily at bedtime. amitriptyline (ELAVIL) 50 mg tablet Take 1 tablet by mouth daily at bedtime. (Patient not taking: Reported on 11/17/2023) busPIRone (BUSPAR) 15 mg tablet Take 1 tablet by mouth three times a day. omeprazole (PRILOSEC) 40 mg capsule Take 1 capsule by mouth once daily. glimepiride (AMARYL) 4 mg tablet Take 1 tablet by mouth daily with breakfast. ketotifen fumarate (ALAWAY) 0.025 % (0.035 %) ophthalmic solution Use 1 Drop in both eyes twice daily. blood sugar diagnostic (ONETOUCH VERIO TEST STRIPS) test strip TEST BLOOD SUGAR ONCE DAILY lancets (ONE TOUCH DELICA) 33 gauge Test blood sugar(s) 1 daily. Dx: Other DM Code E 11.29 Insulin:No Hydrochlorothiazide 12.5 mg capsule Take 1 capsule by mouth once daily. losartan (COZAAR) 100 mg tablet Take 1 tablet by mouth once daily. metoprolol succinate ER (TOPROL XL) 25 mg 24 hr tablet Take 1 tablet by mouth once daily. amLODIPine (NORVASC) 10 mg tablet Take 1 tablet by mouth once daily. nitroglycerin sublingual (NITROSTAT) 0.4 mg SL tablet Dissolve 1 tablet under the tongue every 5 minutes as needed for Chest Pain. rivaroxaban (XARELTO) 20 mg tablet Take 20 mg by mouth daily with dinner. simvastatin (ZOCOR) 20 mg tablet Take 20 mg by mouth daily at bedtime. acetaminophen (TYLENOL EXTRA STRENGTH) 500 mg ORAL tablet Take 2 tablets by mouth every 4 hours as needed. No current facility-administered medications on file prior to visit. Social History Social History Tobacco Use Smoking status: Former Years: 20 Types: Cigarettes Quit date: 07/13/1981 Years since quittin.3 Smokeless tobacco: Never Tobacco comments: Pt smoked one pack every 3 days. Vaping Use Vaping Use: Never used Substance Use Topics Alcohol use: No Drug use: No EXAM: BP 120/76 Pulse 68 Resp 18 Wt 96.8 kg (213 lb 8 oz) BMI 34.46 kg/m General Appearance: Well appearing, alert, in no acute distress, well-hydrated, well nourished. andObese. Back: right side hip/back, no pain on palpation; indicates pain in right side underneath rib cage; no masses or deformities noted Health Maintenance List RSV Vaccine(1 - 1-dose 60+ series) Never done Bone Density Screening due on 10/30/2010 DTaP,Tdap,Td Vaccine(2 - Td or Tdap) due on 10/04/2018 Diabetic Foot Exam due on 09/17/2021 Shingrix Vaccine(1 of 2) due on 04/28/2024 Covid-19 Vaccine(4 - 2022- season) due on 10/29/2024 HbA1C due on 04/23/2024 Dilated Retinal Exam due on 09/08/2024 Urine Albumin:Creatinine Ratio due on 10/22/2024 LDL Cholesterol due on 10/22/2024 Influenza Vaccine Completed Advance Directive Discussion Completed Pneumococcal Vaccine: 65+ Completed Data reviewed None ASSESSMENT/PLAN: 1. Acute right-sided low back pain without sciatica - ICD9: 724.2, ICD10: M54.50 (primary diagnosis) Recommend trying Zanaflex prn If no improvement with muscle relaxant may order US Continue with heat, tylenol 2. Iron deficiency anemia, unspecified iron deficiency anemia type - ICD9: 280.9, ICD10: D50.9 Continue with infusions with Hem/Onc 3. Side pain - ICD9: 789.00, ICD10: R10.9 Recommend trying Zanaflex prn If no improvement with muscle relaxant may order US Continue with heat, tylenol 4. Secondary pulmonary arterial hypertension (HCC) - ICD9: 416.8, ICD10: I27.21 Stable 5. Atherosclerotic heart disease of [place] coronary artery with other forms of angina pectoris (HCC) - ICD9: 414.01, 413.9, ICD10: I25.118 Stable 6. Stage 3b chronic kidney disease (HCC) - ICD9: 585.3, ICD10: N18.32 Monitor prn Follow up prn; call if not iproved with muscle relaxant and would consider US to evaluate right side I agree with the Chief Complaint, ROS, and Past Histories independently gathered by the clinical medical support specialist and the remaining scribed note accurately describes my personal service to the patient. Medical Decision Making: Problems: Moderate: New problem with uncertain prognosis and 2+ stable chronic illnesses Risk: Moderate: Drug management Medical Decision Making Level: 4 - Moderate Victor M Rocha MD The documentation for this note was completed by Kandi Woody MA acting as scribe for Victor M Rocha MD. November 23, 2023 2:53 PM. Kandi Woody MA documented in this [facility] Telephone encounter Note * Telephone Encounter - Shara Delgado - 11/18/2023 12:46 PM EDT Orders linked to appointments. Shara Delgado [facility]05-08-[facility]24 Miscellaneous Notes* Telephone Encounter - Shara Delgado - 11/18/2023 12:46 PM EDT Orders linked to appointments. Shara Delgado * Telephone Encounter - Joshua Baker DO - 11/18/2023 12:31 PM EDT They are in [place]. Joshua Baker DO * Telephone Encounter - Shara Delgado - 11/18/2023 10:28 AM EDT Spoke with patient and scheduled. Please file [place] Orders. Shara Delgado * Telephone Encounter - Belle Fajardo LPN - 11/18/2023 10:15 AM EDT PSS- please schedule patient for 5 doses of iron sucrose. Also, with the last dose she will need CBC/RETIC and IRON STUDIES. Belle Fajardo LPN documented in this encounterBu[facility]05-[facility]-2024 Telephone encounter Note * Telephone Encounter - Joshua Baker DO - 11/18/2023 12:31 PM EDT They are in [place]. Joshua Baker DO [facility] Work Phone: [phone] 337-935905-08-2024 Telephone encounter Note* Telephone Encounter - Shara Delgado - 11/18/2023 10:28 AM EDT Spoke with patient and scheduled. Please file [place] Orders. Shara Delgado [facility]05-08-[facility]24 Telephone encounter Note* Telephone Encounter - Belle Fajardo LPN - 11/18/2023 10:15 AM EDT PSS- please schedule patient for 5 doses of iron sucrose. Also, with the last dose she will need CBC/RETIC and IRON STUDIES. 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 Elements copied from Dr. Priest's note dated 08/20/2021 have been reviewed and updated where appropriateand all reflect current assessment and medical decision making during today's encounter. Patient had been on Xarelto for atrial fibrillation since 2014. 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 Root for increased fatigue and was noted to have anemia. Patient had an occasional black tarry stool and rectal bleeding as well. She developed progressive anemia with increasing symptom fatigue, dyspnea exertion and palpitation. She denied having any previous blood transfusion. Additional tests showed she has moderate renal insufficiency and serum protein electrophoresis also showed a M protein, 0.73 gram per deciliter, IgG lambda. Patient has no fever, chills or night sweats. She has no bone pain, arthritis, headache or peripheral neuropathy. She has some lightheadedness and dizziness along with restless leg symptom and weakness from anemia. Patient has no weight loss, cough, chest pain or shortness of breath at rest. She had a screening colonoscopy in 2011. Patient has no history of peptic ulcer disease, but she is taking aspirin along with Xarelto. Has h/o [place] (PCI with stents), atrial fibrillation (on rivaroxaban), PPM, DM2, colitis and GERD. Presents for ongoing hematologic management. Interim history: Very fatigued. Significant dyspnea with exertion. Panting. Uses wheeled walker. Legs get very weak. No chest or pressure. Occasional numbness in left foot. No black or bloody stools. Very constipated. Takes Miralax and has stool incontinence. No LE swelling. PHYSICAL EXAMINATION: Well-nourished well-developed elderly female is in no acute distress BP 131/76 Pulse 89 Temp (Src) 97.5 (Temporal) Wt 213 lb (96.6kg) SpO2 93% HEENT: Head is normocephalic, atraumatic. Sclerae white, conjunctivae pink. PEERL. EOMs are intact.Oropharynx is benign. LYMPHATICS: There is no palpable adenopathy in the neck, supraclavicular region. LUNGS: Diminished vesicular breath sounds throughout, but clear. HEART: Regular rhythm. ABDOMEN: Non-distended.t. LABS: ASSESSMENT/PLAN: (D47.2) MGUS (monoclonal gammopathy of unknown significance) (primary encounter diagnosis) Assessment: -IgG lambda monoclonal gammopathy. -Stable renal function over the last year. -Seen by locum last year. -Needs assessment of iron and MP. -Discussed with daughter and patient. Plan: -Labs as ordered. -Parenteral iron if indicated. Portions of this documentation were copied and pasted from previous office visit notes in order to provide a cohesive continuity of the history. The note has been reviewed and edited and updated as necessary. I spent a total of 30 minutes on the date of the service which included preparing to see the patient, [id number] patient care, completing clinical documentation, obtaining and/or reviewing separately obtained history, performing a medically appropriate examination, counseling and educating the pat ient/family/caregiver, ordering medications, tests, or procedures, communicating with other HCPs (not separately reported), and communicating results to the patient/family/caregiver. Joshua Baker DO documented in this encounterBu[facility]04-19-2024 History of Present illness Narrative* Victor M Rocha MD - 10/30/2023 10:40 AM EDT Chief Complaint Patient presents with: 6 Month Exam HPI Antonio Gupta is a 83 year old female who presents here today for 6 month follow up. Has an advanced directive. Denies any bowel, Gi, or urinary issues. Hx of colitis. Reports issues with constipation, really straining to go presently. Using OTC stool softeners. Was using Miralax but her stools were too loose,was having anal leakage which she didn't know she had passed any stool till she went to the bathroom and saw it in her depends. Was getting chronic UTI from E Coli. Does use depends for urinary incontinence. Gets up 4-5 x a night to urinate. GERD: Sx stable with Prilosec 40 mg daily. CKD: Monitored, through routine labs. Followed previously with Oncology for MGUS. has not seen them for over one year; she had been stable. She is now anemic again, so recommended that she schedule follow up. HTN: & A-fib: Does not check BP at home, no chest pains, dizziness, or SOB. Follows with [facility], Cardio. Has pacemaker. Taking Xarelto 20 mg daily, prn nitro, HCTZ 12.5 mg daily, Toprol xl 25 mg daily, Norvasc 10 mg daily and Losartan 100 mg daily. Thyroid: Taking Synthroid 75 mcg daily. No missed dosages. For last 6 weeks has been feeling very fatigued, no energy. Feels like she can't do much before getting SOB and having leg weakness. This cristiano new problem for her. Breathing worsens with activity. Will resolve with rest. She feels she is sleeping well at night. Lipid/CAD: Reports jail watching her diet. Denies any exercise. Doesn't do too much walking, butis active with sewing and crocheting. Uses a cane to ambulate to avoid falling has been over a year. Taking Zocor 20 mg daily. DM: Checks BS once every couple weeks. Denies any hypoglycemic episodes or neuropathy sx. Taking Jardiance 10 mg daily and Amaryl 4 mg daily. Follows with Dr. Kilgore for eye exams. Depression/REX: Taking Buspar 15 mg TID and Amitriptyline 50 mg daily. Buspar was increased last visit due to pt having trouble sleeping. Sleeping better since increasing Buspar. Past medical history, appointments, medications, allergies reviewed. Previous Medical History PAST MEDICAL HISTORY Diagnosis Date Coronary atherosclerosis of unspecified type of vessel, [place] or graft Stent x 2010 Depressive disorder, not elsewhere classified Diverticulosis of colon (without mention of hemorrhage) Essential hypertension, benign Heart attack (HCC) Other and unspecified hyperlipidemia Palpitations Paroxysmal atrial fibrillation (HCC) Previous Surgical History PAST SURGICAL HISTORY Procedure Laterality Date APPENDECTOMY COLONOSCOPY FLX DX W/COLLJ SPEC WHEN PFRMD 1998 Colonoscopy repeat 10 years COLONOSCOPY FLX DX W/COLLJ SPEC WHEN PFRMD 05/18/12 Colonoscopy COLSC FLX W/REMOVAL LESION BY HOT BX FORCEPS 09/15/2016 EGD REMOVAL TUMOR POLYP/OTHER LESION SNARE TECH 09/15/2016 HEART SURGERY HX 09/2010 stents inserted LEFT HEART CATH,PERCUTANEOUS 2010 Cardiac cath, L heart PACEMAKER IMPLANT 04/2015 PERC TRANSL COR ANGIO 2010 Percutaneous Transluminal Coronary Angio Status SVT ABLATION W/ EP COMPLETE 03/31/2016 Dr. Buitrago TOTAL ABDOMINAL HYSTERECT W/WO RMVL TUBE OVARY 1985 Hysterectomy, ROSALIO W TRY ATRIOGRM HP Family History FAMILY HISTORY Problem Relation Age of Onset Cancer Mother liver other (old age) Father Cancer Sister thyroid Patient Allergies ALLERGIES Allergen Reactions Poison Fany Sulfa (Sulfonamide * Hives Current Medications Current Outpatient Medications on File Prior to Visit Medication Sig amitriptyline (ELAVIL) 50 mg tablet Take 1 tablet by mouth daily at bedtime. amitriptyline (ELAVIL) 50 mg tablet Take 1 tablet by mouth daily at bedtime. busPIRone (BUSPAR) 15 mg tablet Take 1 tablet by mouth three times a day. omeprazole (PRILOSEC) 40 mg capsule Take 1 capsule by mouth once daily. glimepiride (AMARYL) 4 mg tablet Take 1 tablet by mouth daily with breakfast. empagliflozin (JARDIANCE) 10 mg tablet Take 1 tablet by mouth once daily. Take 1 tablet once daily in the morning levothyroxine (EUTHYROX) 75 mcg tablet Take 1 tablet by mouth once daily. ketotifen fumarate (ALAWAY) 0.025 % (0.035 %) ophthalmic solution Use 1 Drop in both eyes twice daily. blood sugar diagnostic ([employer]UCH VERIO TEST STRIPS) test strip TEST BLOOD SUGAR ONCE DAILY lancets (ONE TOUCH DELICA) 33 gauge Test blood sugar(s) 1 daily. Dx: Other DM Code E 11.29 Insulin:No Hydrochlorothiazide 12.5 mg capsule Take 1 capsule by mouth once daily. losartan (COZAAR) 100 mg tablet Take 1 tablet by mouth once daily. metoprolol succinate ER (TOPROL XL) 25 mg 24 hr tablet Take 1 tablet by mouth once daily. amLODIPine (NORVASC) 10 mg tablet Take 1 tablet by mouth once daily. nitroglycerin sublingual (NITROSTAT) 0.4 mg SL tablet Dissolve 1 tablet under the tongue every 5 minutes as needed for Chest Pain. rivaroxaban (XARELTO) 20 mg tablet Take 20 mg by mouth daily with dinner. simvastatin (ZOCOR) 20 mg tablet Take 20 mg by mouth daily at bedtime. acetaminophen (TYLENOL EXTRA STRENGTH) 500 mg ORAL tablet Take 2 tablets by mouth every 4 hours as needed. No current facility-administered medications on file prior to visit. Social History Social History Tobacco Use Smoking status: Former Years: 20 Types: Cigarettes Quit date: 07/13/1981 Years since quittin.3 Smokeless tobacco: Never Tobacco comments: Pt smoked one pack every 3 days. Vaping Use Vaping Use: Never used Substance Use Topics Alcohol use: No Drug use: No EXAM: BP 118/64 Pulse 90 Resp 18 Wt 95.9 kg (211 lb 6.4 oz) SpO2 100% BMI 34.12 kg/m General Appearance: Well appearing, alert, in no acute distress, well-hydrated, well nourished.. Lungs: Lungs clear to auscultation. No wheezing, rhonchi, rales.. Heart: RRR without murmur, gallop, or rubs. No ectopy. Health Maintenance List RSV Vaccine(1 - 1-dose 60+ series) Never done DTaP,Tdap,Td Vaccine(2 - Td or Tdap) due on 10/04/2018 Diabetic Foot Exam due on 09/17/2021 Advance Directive Discussion due on 07/13/2023 Shingrix Vaccine(1 of 2) due on 04/28/2024 Covid-19 Vaccine( season) due on 10/29/2024 HbA1C due on 04/23/2024 Dilated Retinal Exam due on 09/08/2024 Urine Albumin:Creatinine Ratio due on 10/22/2024 LDL Cholesterol due on 10/22/2024 Bone Density Screening Completed Influenza Vaccine Completed Pneumococcal Vaccine: 65+ Completed Data reviewed Appointment on 10/23/2023 Component Date Value WBC 10/23/2023 9.61 RBC 10/23/2023 3.87 (L) Hemoglobin 10/23/2023 10.2 (L) Hematocrit 10/23/2023 34.1 (L) MCV 10/23/2023 88.1 MCH 10/23/2023 26.4 MCHC 10/23/2023 29.9 (L) RDW-CV 10/23/2023 14.6 Platelet Count 10/23/2023 396 MPV 10/23/2023 10.5 Neutrophils % 10/23/2023 65.2 Abs Neut 10/23/2023 6.26 Lymphocytes % 10/23/2023 20.6 Abs Lymph 10/23/2023 1.98 Monocytes % 10/23/2023 10.5 Abs [place] 10/23/2023 1.01 (H) Eosinophils % 10/23/2023 2.8 Abs Eosin 10/23/2023 0.27 Basophils % 10/23/2023 0.6 Abs Baso 10/23/2023 0.06 Immature Granulocytes % 10/23/2023 0.3 Abs Immature Gran 10/23/2023 0.03 NRBC 10/23/2023 0.0 Absolute nRBC 10/23/2023 <0.01 Diff Type 10/23/2023 Auto Protein, Total 10/23/2023 8.4 (H) Albumin 10/23/2023 4.0 Calcium, Total 10/23/2023 10.2 Bilirubin, Total 10/23/2023 0.3 Alkaline Phosphatase 10/23/2023 105 AST 10/23/2023 19 ALT 10/23/2023 11 Glucose 10/23/2023 153 (H) BUN 10/23/2023 31 (H) Creatinine 10/23/2023 1.57 (H) Sodium 10/23/2023 130 (L) Potassium 10/23/2023 4.9 Chloride 10/23/2023 94 (L) CO2 10/23/2023 23 Anion Gap 10/23/2023 13 Estimated Glomerular [place]* 10/23/2023 32 (L) [place] Free, Serum 10/23/2023 80.2 (H) Lambda Free, Serum 10/23/2023 117.2 (H) K/L Ratio, Serum 10/23/2023 0.68 Creatinine, Ur Random (U* 10/23/2023 44.8 Albumin, Urine Random 10/23/2023 <12.0 Albumin/Creat Ratio 10/23/2023 <27 Cholesterol, Total 10/23/2023 132 Triglyceride 10/23/2023 145 HDL Cholesterol 10/23/2023 36 (L) Non HDL Cholesterol 10/23/2023 96 Fasting Time 10/23/2023 12 VLDL Cholesterol 10/23/2023 29 TC:HDL Ratio 10/23/2023 3.67 LDL Cholesterol 10/23/2023 67 LDL:HDL Ratio 10/23/2023 1.86 Hemoglobin A1C 10/23/2023 7.8 (H) Estimated Average Glucose 10/23/2023 177 TSH 10/23/2023 4.240 (H) ASSESSMENT/PLAN: 1. Type 2 diabetes mellitus with other diabetic kidney complication, without long-term current use of insulin (HCC) - ICD9: 250.40, ICD10: E11.29 (primary diagnosis) - Controlled - Continue current medications - Counseled on healthy diet and regular exercise - Discussed need for and benefit of weight loss. BMI 34.12 kg/(m^2) 2. Hypothyroidism, unspecified type - ICD9: 244.9, ICD10: E03.9 - Instructed patient on importance of taking on an empty stomach either first thing in the morning or at bedtime. - Increase Synthroid dose to 0.100 mg - LEVOTHYROXINE 100 MCG TABLET 3. Gastroesophageal reflux disease, unspecified whether esophagitis present - ICD9: 530.81, ICD10: K21.9 Stable Continue current medications. 4. Stage 3b chronic kidney disease (HCC) - ICD9: 585.3, ICD10: N18.31 Continue current medications. Continue to monitor with labs 5. MGUS (monoclonal gammopathy of unknown significance) - ICD9: 273.1, ICD10: D47.2 Follow up with Pharmacy Technologist 6. 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 7. Iron deficiency anemia, unspecified iron deficiency anemia type - ICD9: 280.9, ICD10: D50.9 Follow up with Pharmacy Technologist Check labs in 3 months 8. Paroxysmal atrial fibrillation (HCC) - ICD9: 427.31, ICD10: I48.0 Continue current medications. Continue with Cardio [facility] 9. Hyperlipidemia, unspecified hyperlipidemia type - ICD9: 272.4, ICD10: E78.5 - Controlled - Continue current medications - Counseled on healthy diet and regular exercise - Discussed need for and benefit of weight loss. BMI 34.12 kg/(m^2) 10. Essential hypertension, benign - ICD9: 401.1, ICD10: I10 - Controlled - Continue current medications - Recommend home blood pressure monitoring, to bring results to next visit - Encouraged sodium restriction, DASH or Mediterranean diet - Recommend regular aerobic exercise - Discussed need for and benefit of weight loss. BMI 34.12 kg/(m^2) 11. Fatigue, unspecified type - ICD9: 780.79, ICD10: R53.83 Follow up with Pharmacy Technologist Increase Synthroid to 100 mg daily 12. Generalized weakness - ICD9: 780.79, ICD10: R53.1 Follow up with Pharmacy Technologist Increase Synthroid to 100 mg daily 13. SOB (shortness of breath) - ICD9: 786.05, ICD10: R06.02 Follow up with Pharmacy Technologist Follow up in 3 months with labs prior. I agree with the Chief Complaint, ROS, and Past Histories independently gathered by the clinical medical support specialist and the remaining scribed note accurately describes my personal service to the patient. Medical Decision Making: Problems: Moderate: 1+ chronic illnesses with change and 2+ stable chronic illnesses Data: Unique test result(s) reviewed: 3+ Unique test(s) ordered: 3+ Risk: Moderate: Drug management Medical Decision Making Level: 4 - Moderate Victor M Rocha MD The documentation for this note was completed by Kandi Woody MA acting as scribe for Victor M Rocha MD. October 30, 2023 10:29 AM. Kandi Woody MA documented in this encounterBu[facility]02-19-2024 Miscellaneous Notes* Telephone Encounter - Carlos House APRN.CNP - 08/31/2023 9:28 AM EST The following approved medication requests have been transmitted electronically. Requested Prescriptions Pending Prescriptions Disp Refills amitriptyline (ELAVIL) 50 mg tablet 90 tablet 3 Sig: Take 1 tablet by mouth daily at bedtime. amitriptyline (ELAVIL) 50 mg tablet 30 tablet 0 Sig: Take 1 tablet by mouth daily at bedtime. Carlos House APRN.CNP * Telephone Encounter - Vania Walters LPN - 08/31/2023 9:16 AM EST Patient has been identified by name and date of : Patient phones for refill(s): Requested Prescriptions Pending Prescriptions Disp Refills amitriptyline (ELAVIL) 50 mg tablet 90 tablet 3 Sig: Take 1 tablet by mouth daily at bedtime. amitriptyline (ELAVIL) 50 mg tablet 30 tablet 0 Sig: Take 1 tablet by mouth daily at bedtime. Date of last office visit in primary care: 06/30/2023 Date of next office visit in primary care: 10/30/2023 Patient has 6 pills left Please advise. Thank you. Vania Walters LPN. documented in this encounterBucy[facility]12-11-2023 Miscellaneous Notes* Telephone Encounter - Victor M Rocha MD - 06/22/2023 5:37 PM EST Was seen for appt Victor M Rocha MD * Telephone Encounter - Shanti Dennis - 06/15/2023 11:23 AM EST Patient calling in for follow up UTI from on 06/05. She states she finished the med's Thursday am and is no better. Unable to find opening in PCP or team schedule please advise the patient. documented in this encounterBucyrus [facility]12-11-2023 Instructions* Patient Instructions* Ana Kebede APRN.DICK - 06/22/2023 11:59 AM EST Call me and let me know what antibiotic you are taking documented in this encounterBucyrus [facility] Hospital12-11-2023 History of Present illness Narrative* Ana Kebede APRN.DICK - 06/22/2023 11:32 AM EST 06/22/2023 Patient presents with: ED Follow-up: UTI; last dose of Macrobid 06/19/2023. SUBJECTIVE: This is a 83 year old that is here today for Above Complaints. In ER for urinary symptoms on 06/15. Treated with Levaquin. Patient reports was told to stop this and start new antibiotic and then follow-up with her PCP. Taking and tolerating antibiotic without side effects. Patient is unsure of what the name of the antibiotic she is taking. Patient reports her urine was cloud and she had not other urinary symptoms. She reports urine is not cloudy anymore. Denies fevers, chills, abdominal/back pain, nausea, vomiting, dysuria, hematuria, urinary frequency or urgency ER record reviewed PAST MEDICAL HISTORY Diagnosis Date Coronary atherosclerosis of unspecified type of vessel, [place] or graft Stent x 2010 Depressive disorder, not elsewhere classified Diverticulosis of colon (without mention of hemorrhage) Essential hypertension, benign Heart attack (HCC) Other and unspecified hyperlipidemia Palpitations Paroxysmal atrial fibrillation (HCC) ALLERGIES Poison Fany and Sulfa (Sulfonamide Antibiotics) MEDICATIONS Current Outpatient Medications Medication Sig busPIRone (BUSPAR) 15 mg tablet Take 1 tablet by mouth three times a day. omeprazole (PRILOSEC) 40 mg capsule Take 1 capsule by mouth once daily. glimepiride (AMARYL) 4 mg tablet Take 1 tablet by mouth daily with breakfast. empagliflozin (JARDIANCE) 10 mg tablet Take 1 tablet by mouth once daily. Take 1 tablet once daily in the morning levothyroxine (EUTHYROX) 75 mcg tablet Take 1 tablet by mouth once daily. amitriptyline (ELAVIL) 50 mg tablet Take 1 tablet by mouth daily at bedtime. ketotifen fumarate (ALAWAY) 0.025 % (0.035 %) ophthalmic solution Use 1 Drop in both eyes twice daily. blood sugar diagnostic (ONETOUCH VERIO TEST STRIPS) test strip TEST BLOOD SUGAR ONCE DAILY lancets (ONE TOUCH DELICA) 33 gauge Test blood sugar(s) 1 daily. Dx: Other DM Code E 11.29 Insulin:No Hydrochlorothiazide 12.5 mg capsule Take 1 capsule by mouth once daily. losartan (COZAAR) 100 mg tablet Take 1 tablet by mouth once daily. metoprolol succinate ER (TOPROL XL) 25 mg 24 hr tablet Take 1 tablet by mouth once daily. amLODIPine (NORVASC) 10 mg tablet Take 1 tablet by mouth once daily. nitroglycerin sublingual (NITROSTAT) 0.4 mg SL tablet Dissolve 1 tablet under the tongue every 5 minutes as needed for Chest Pain. rivaroxaban (XARELTO) 20 mg tablet Take 20 mg by mouth daily with dinner. simvastatin (ZOCOR) 20 mg tablet Take 20 mg by mouth daily at bedtime. acetaminophen (TYLENOL EXTRA STRENGTH) 500 mg ORAL tablet Take 2 tablets by mouth every 4 hours as needed. No current facility-administered medications for this visit. Medications and allergies reviewed by this provider. SOCIAL HISTORY Social History Tobacco Use Smoking status: Former Years: 20 Types: Cigarettes Quit date: 07/13/1981 Years since quittin.9 Smokeless tobacco: Never Tobacco comments: Pt smoked one pack every 3 days. Vaping Use Vaping Use: Never used Substance Use Topics Alcohol use: No Drug use: No REVIEW OF SYSTEMS All other reviewed and negative other than HPI. OBJECTIVE: BP 122/62 Pulse 90 Temp 37.1 C (98.7 F) Resp 18 Wt 93.4 kg (205 lb 12.8 oz) SpO2 97% BMI 33.22 kg/m . Vital signs reviewed by this provider. APPEARANCE Well appearing, alert, in no acute distress, well-hydrated, well nourished. EYES PERRLA, conjunctiva and sclera normal. HEART RRR with normal S1 and S2, no murmurs, no gallops, no JVD appreciated LUNG clear to auscultation. No wheezes, rhonchi or rales ABDOMEN no tenderness to palpation SKIN Skin color, texture, turgor normal, no suspicious rashes or lesions to exposed skin RSV Vaccine(1 - 1-dose 60+ series) Never done DTaP,Tdap,Td Vaccine(2 - Td or Tdap) due on 10/04/2018 Diabetic Foot Exam due on 09/17/2021 Advance Directive Discussion due on 07/13/2022 Urine Albumin:Creatinine Ratio due on 01/10/2023 Covid-19 Vaccine( season) due on 03/13/2023 Dilated Retinal Exam due on 05/15/2023 Shingrix Vaccine(1 of 2) due on 04/28/2024 HbA1C due on 10/21/2023 LDL Cholesterol due on 04/21/2024 Bone Density Screening Completed Influenza Vaccine Completed Pneumococcal Vaccine: 65+ Completed ASSESSMENT/PLAN: 1. Urinary tract infection without hematuria, site unspecified - ICD9: 599.0, ICD10: N39.0 (primarydiagnosis) - from what I am reading regarding her ER visit is that Levaquin was stopped due to it did not cover the bacteria and Macrobid was started. Looks like they had concerns for her past kidney function and being on the Macrobid so they wanted her to follow-up to check her kidney function - will have her continue the Macrobid and check her BMP today - follow-up if symptoms fail to improve 2. Stage 3b chronic kidney disease (HCC) - ICD9: 585.3, ICD10: N18.32 - BASIC METABOLIC PNL Ana Kebede APRN.DICK Prescription instructions reviewed with patient as applicable. Patient advised if symptoms do not improve or if symptoms worsen sooner, to contact their primary care physician. Potential red flag symptoms discussed with the patient. Reviewed appropriate action plan to take if red flag symptoms occur. Patient agreeable to treatment plan. I spent a total of 25 minutes on the date of the service which included preparing to see the patient, [id number] patient care, completing clinical documentation, obtaining and/or reviewing separately obtained history, performing a medically appropriate examination, counseling and educating the pat ient/family/caregiver, and ordering medications, tests, or procedures. documented in this encounterBu[facility]11-24-2023 Instructions* Patient Instructions* Beverley Reed APRN.CNP - 06/05/2023 3:56 PM EST ASSESSMENT/PLAN: 1. Urinary frequency - ICD9: 788.41, ICD10: R35.0 acute - UA positive for moris esterase, hematuria, proteinuria, and nitrates and glucose (>1000). - Send urine for culture - Begin treatment with cephalexin for 7 days - Patient education for prevention given - UA DIP, URINE (POC) - URINE CULTURE - CEPHALEXIN 500 MG CAPSULE 2. Glucosuria - ICD9: 791.5, ICD10: R81 - GLUCOSE, BLOOD (POC) - Follow-up with your PCP in 3-5 days if symptoms have not improved or sooner if symptoms worsen - Discussed red flags and need for immediate medical evaluation if any occur. - Discussed supportive care treatment with fluids, rest and analgesia. - Discussed expected course of illness Beverley Reed APRN.HOTEL SALES MANAGER documented in this encounterBucyrus [facility]11-24-2023 History of Present illness Narrative* Beverley Reed APRN.DICK - 06/05/2023 12:26 PM EST Subjective The history is provided by the patient. Antonio Gupta is a 83 year old female who presents with dysuria and cloudy urine for the past 6 days. She also has some urinary frequency. She had an elevated temperature at home of 102 degrees F andhas some chills. She had some nausea but then felt better. Review of Systems Constitutional: Negative for chills and fever. Respiratory: Negative. Cardiovascular: Negative. Gastrointestinal: Positive for nausea. Negative for abdominal pain and vomiting. Genitourinary: Positive for dysuria. Musculoskeletal: Negative for back pain. BP 118/66 Pulse 72 Temp 36.4 C (97.5 F) Resp 16 Wt 93.9 kg (207 lb) SpO2 98% BMI 33.41 kg/m PAST MEDICAL HISTORY Diagnosis Date Coronary atherosclerosis of unspecified type of vessel, united auburn or graft Stent x 2010 Depressive disorder, not elsewhere classified Diverticulosis of colon (without mention of hemorrhage) Essential hypertension, benign Heart attack (HCC) Other and unspecified hyperlipidemia Palpitations Paroxysmal atrial fibrillation (HCC) PAST SURGICAL HISTORY Procedure Laterality Date APPENDECTOMY COLONOSCOPY FLX DX W/COLLJ SPEC WHEN PFRMD 1998 Colonoscopy repeat 10 years COLONOSCOPY FLX DX W/COLLJ SPEC WHEN PFRMD 05/18/12 Colonoscopy COLSC FLX W/REMOVAL LESION BY HOT BX FORCEPS 09/15/2016 EGD REMOVAL TUMOR POLYP/OTHER LESION SNARE TECH 09/15/2016 HEART SURGERY HX 09/2010 stents inserted LEFT HEART CATH,PERCUTANEOUS 2010 Cardiac cath, L heart PACEMAKER IMPLANT 04/2015 PERC TRANSL COR ANGIO 2010 Percutaneous Transluminal Coronary Angio Status SVT ABLATION W/ EP COMPLETE 03/31/2016 Dr. Buitrago TOTAL ABDOMINAL HYSTERECT W/WO RMVL TUBE OVARY 1985 Hysterectomy, ROSALIO W TRY ATRIOGRM HP ALLERGIES Poison Fany and Sulfa (Sulfonamide Antibiotics) MEDICATIONS busPIRone (BUSPAR) 15 mg tablet Take 1 tablet by mouth three times a day. omeprazole (PRILOSEC) 40 mg capsule Take 1 capsule by mouth once daily. glimepiride (AMARYL) 4 mg tablet Take 1 tablet by mouth daily with breakfast. empagliflozin (JARDIANCE) 10 mg tablet Take 1 tablet by mouth once daily. Take 1 tablet once daily in the morning levothyroxine (EUTHYROX) 75 mcg tablet Take 1 tablet by mouth once daily. amitriptyline (ELAVIL) 50 mg tablet Take 1 tablet by mouth daily at bedtime. ketotifen fumarate (ALAWAY) 0.025 % (0.035 %) ophthalmic solution Use 1 Drop in both eyes twice daily. blood sugar diagnostic ([place] VERIO TEST STRIPS) test strip TEST BLOOD SUGAR ONCE DAILY lancets (ONE TOUCH DELICA) 33 gauge Test blood sugar(s) 1 daily. Dx: Other DM Code E 11.29 Insulin:No Hydrochlorothiazide 12.5 mg capsule Take 1 capsule by mouth once daily. losartan (COZAAR) 100 mg tablet Take 1 tablet by mouth once daily. metoprolol succinate ER (TOPROL XL) 25 mg 24 hr tablet Take 1 tablet by mouth once daily. amLODIPine (NORVASC) 10 mg tablet Take 1 tablet by mouth once daily. nitroglycerin sublingual (NITROSTAT) 0.4 mg SL tablet Dissolve 1 tablet under the tongue every 5 minutes as needed for Chest Pain. rivaroxaban (XARELTO) 20 mg tablet Take 20 mg by mouth daily with dinner. simvastatin (ZOCOR) 20 mg tablet Take 20 mg by mouth daily at bedtime. acetaminophen (TYLENOL EXTRA STRENGTH) 500 mg ORAL tablet Take 2 tablets by mouth every 4 hours as needed. FAMILY HISTORY Problem Relation Age of Onset Cancer Mother liver other (old age) Father Cancer Sister thyroid Social History Tobacco Use Smoking status: Former Years: 20 Types: Cigarettes Quit date: 07/13/1981 Years since quittin.9 Smokeless tobacco: Never Tobacco comments: Pt smoked one pack every 3 days. Vaping Use Vaping Use: Never used Substance Use Topics Alcohol use: No Drug use: No Objective Physical Exam Vitals and nursing note reviewed. Constitutional: General: She is not in acute distress. Appearance: Normal appearance. She is not ill-appearing. Cardiovascular: Rate and Rhythm: Regular rhythm. Pulmonary: Effort: Pulmonary effort is normal. Breath sounds: Normal breath sounds. Abdominal: General: There is no distension. Palpations: Abdomen is soft. There is no mass. Tenderness: There is no abdominal tenderness. There is no right CVA tenderness, left CVA tendernessor guarding. Skin: General: Skin is warm and dry. Neurological: Mental Status: She is alert. Last labs for kidney function: Component Latest Ref Rng & Units 04/21/2023 Protein, Total 6.3 - 8.0 g/dL 8.1 (H) Albumin 3.9 - 4.9 g/dL 4.1 Calcium 8.5 - 10.2 mg/dL 9.7 Bilirubin, Total 0.2 - 1.3 mg/dL 0.4 Alkaline Phosphatase 34 - 123 U/L 87 AST 13 - 35 U/L 21 ALT 7 - 38 U/L 10 Glucose 74 - 99 mg/dL 153 (H) BUN 7 - 21 mg/dL 22 (H) Creatinine 0.58 - 0.96 mg/dL 1.49 (H) Sodium 136 - 144 mmol/L 132 (L) Potassium 3.7 - 5.1 mmol/L 3.9 Chloride 97 - 105 mmol/L 99 CO2 22 - 30 mmol/L 19 (L) Anion Gap 9 - 18 mmol/L 14 eGFR >=60 mL/min/1.73m 35 (L) Office Visit on 06/05/2023 Component Date Value Ref Range Status GLUCOSE UA (POCT) 06/05/2023 >=1000 (A) Negative mg/dL Final BILIRUBIN UA (POCT) 06/05/2023 Negative Negative Final KETONE UA (POCT) 06/05/2023 Negative Negative mg/dL Final SPECIFIC GRAVITY UA (POCT) 06/05/2023 1.010 1.005 - 1.030 Final HEMOGLOBIN/BLOOD UA (POCT) 06/05/2023 Large (A) Negative Final PH UA (POCT) 06/05/2023 6.0 4.5 - 8.0 Final PROTEIN UA (POCT) 06/05/2023 100 (A) Negative mg/dL Final UROBILINOGEN UA (POCT) 06/05/2023 0.2 Normal E.U./dL Final NITRITE UA (POCT) 06/05/2023 Positive (A) Negative Final LEUKOCYTES UA (POCT) 06/05/2023 Small (A) Negative Final COLOR UA (POCT) 06/05/2023 Yellow Final CLARITY UA (POCT) 06/05/2023 Clear Final ASSESSMENT/PLAN: 1. Urinary frequency - ICD9: 788.41, ICD10: R35.0 acute - UA positive for moris esterase, hematuria, proteinuria, and nitrates and glucose (>1000). - Send urine for culture - Begin treatment with cephalexin for 7 days - Patient education for prevention given - UA DIP, URINE (POC) - URINE CULTURE - CEPHALEXIN 500 MG CAPSULE 2. Glucosuria - ICD9: 791.5, ICD10: R81 - GLUCOSE, BLOOD (POC)- 177 in office. - Follow-up with your PCP in 3-5 days if symptoms have not improved or sooner if symptoms worsen - Discussed red flags and need for immediate medical evaluation if any occur. - Discussed supportive care treatment with fluids, rest and analgesia. - Discussed expected course of illness Beverley Reed APRN.HOTEL SALES MANAGER documented in this encounterBu[facility]10-17-2023 Instructions* Patient Instructions* Cara Herring Ma - 04/28/2023 10:54 AM EDT Bowels - To help with constipation use Miralax. Use as directed on bottle. Sleep - Can increase Buspar 15 mg to 3 times per day to see if this helps with sleep. documented in this encounterBu[facility]rus [facility]10-17-2023 History of Present illness Narrative* Victor M Rocha MD - 04/28/2023 10:40 AM EDT Chief Complaint Patient presents with: F/U 6 Month HPI Antonio Gupta is a 82 year old female who presents here today for 6 month follow up. Pt here today for a 6 month follow up. Has been very busy with crocheting, sewing blankets for people. GI/Uro - Hx of colitis. Reports issues with constipation, really straining to go presently. Using OTC stool softeners. Does use depends for urinary incontinence. Gets up 4-5 x a night to urinate. GERD: Sx stable with Prilosec 40 mg daily. CKD: Monitored, through routine labs. Stable from previous labs. Thyroid: Taking Synthroid 75 mcg daily. No missed dosages. HTN: & A-fib: Does not check BP at home, no chest pains, dizziness, or SOB. Follows with [facility], Cardio. Taking HCTZ 12.5 mg daily, Toprol xl 25 mg daily, Norvasc 10 mg daily and Losartan 100 mg daily. Has pacemaker. Taking Xarelto 20 mg daily and prn Nitro. DM: Checks BS once every couple weeks, last reading was 153. Reports possible low blood sugars. Episode last week of not feeling good and felt shaky. She sat down and ate something after 30 minutes she felt better. Note some vision changes, reports wavy type episode she had. Denies any neuropathysx. Taking Amaryl 4 mg daily and Jardiance 10 mg daily. Eye exams done by Dr. Kilgore, to f/u in 1 year from May 2022. Lipid/CAD: Reports jail watching her diet. Denies any exercise. Doesn't do too much walking, butis active with sewing and crocheting. Uses a cane to ambulate to avoid falling has been over a year. Taking Zocor 20 mg daily. Depression/REX: Taking Buspar 15 mg BID and Amitriptyline 50 mg daily. Sleep - Reports issues with sleep, states she's up for quite some time and will just count until she finally falls asleep. Wondering if Buspar or Amitriptyline could be increased. Follows with Oncology for MGUS. HM - Declines Shingrix vaccine, did discuss coverage through Pharmacy due to Medicare insurance. Does have Adv Dir/Living Will. Agrees to Flu shot today. Has not received any more Covid vaccines, hasreceived 3 total. Past medical history, appointments, medications, allergies reviewed. Previous Medical History PAST MEDICAL HISTORY Diagnosis Date Coronary atherosclerosis of unspecified type of vessel, united auburn or graft Stent x 2010 Depressive disorder, not elsewhere classified Diverticulosis of colon (without mention of hemorrhage) Essential hypertension, benign Heart attack (HCC) Other and unspecified hyperlipidemia Palpitations Paroxysmal atrial fibrillation (HCC) Previous Surgical History PAST SURGICAL HISTORY Procedure Laterality Date APPENDECTOMY COLONOSCOPY FLX DX W/COLLJ SPEC WHEN PFRMD 1998 Colonoscopy repeat 10 years COLONOSCOPY FLX DX W/COLLJ SPEC WHEN PFRMD 05/18/12 Colonoscopy COLSC FLX W/REMOVAL LESION BY HOT BX FORCEPS 09/15/2016 EGD REMOVAL TUMOR POLYP/OTHER LESION SNARE TECH 09/15/2016 HEART SURGERY HX 09/2010 stents inserted LEFT HEART CATH,PERCUTANEOUS 2010 Cardiac cath, L heart PACEMAKER IMPLANT 04/2015 PERC TRANSL COR ANGIO 2010 Percutaneous Transluminal Coronary Angio Status SVT ABLATION W/ EP COMPLETE 03/31/2016 Dr. Buitrago TOTAL ABDOMINAL HYSTERECT W/WO RMVL TUBE OVARY 1984 Hysterectomy, ROSALIO W TRY ATRIOGRM HP Family History FAMILY HISTORY Problem Relation Age of Onset Cancer Mother liver other (old age) Father Cancer Sister thyroid Patient Allergies ALLERGIES Allergen Reactions Poison Fany Sulfa (Sulfonamide * Hives Current Medications Current Outpatient Medications on File Prior to Visit Medication Sig omeprazole (PRILOSEC) 40 mg capsule Take 1 capsule by mouth once daily. omeprazole (PRILOSEC) 40 mg capsule Take 1 capsule by mouth once daily. glimepiride (AMARYL) 4 mg tablet Take 1 tablet by mouth daily with breakfast. empagliflozin (JARDIANCE) 10 mg tablet Take 1 tablet by mouth once daily. Take 1 tablet once daily in the morning busPIRone (BUSPAR) 15 mg tablet Take 1 tablet by mouth twice daily. levothyroxine (EUTHYROX) 75 mcg tablet Take 1 tablet by mouth once daily. amitriptyline (ELAVIL) 50 mg tablet Take 1 tablet by mouth daily at bedtime. ketotifen fumarate (ALAWAY) 0.025 % (0.035 %) ophthalmic solution Use 1 Drop in both eyes twice daily. blood sugar diagnostic (ONETOUCH VERIO TEST STRIPS) test strip TEST BLOOD SUGAR ONCE DAILY lancets (ONE TOUCH DELICA) 33 gauge Test blood sugar(s) 1 daily. Dx: Other DM Code E 11.29 Insulin:No Hydrochlorothiazide 12.5 mg capsule Take 1 capsule by mouth once daily. losartan (COZAAR) 100 mg tablet Take 1 tablet by mouth once daily. metoprolol succinate ER (TOPROL XL) 25 mg 24 hr tablet Take 1 tablet by mouth once daily. amLODIPine (NORVASC) 10 mg tablet Take 1 tablet by mouth once daily. nitroglycerin sublingual (NITROSTAT) 0.4 mg SL tablet Dissolve 1 tablet under the tongue every 5 minutes as needed for Chest Pain. rivaroxaban (XARELTO) 20 mg tablet Take 20 mg by mouth daily with dinner. simvastatin (ZOCOR) 20 mg tablet Take 20 mg by mouth daily at bedtime. acetaminophen (TYLENOL EXTRA STRENGTH) 500 mg ORAL tablet Take 2 tablets by mouth every 4 hours as needed. No current facility-administered medications on file prior to visit. Social History Social History Tobacco Use Smoking status: Former Years: 20 Types: Cigarettes Quit date: 07/13/1981 Years since quittin.8 Smokeless tobacco: Never Tobacco comments: Pt smoked one pack every 3 days. Vaping Use Vaping Use: Never used Substance Use Topics Alcohol use: No Drug use: No EXAM: BP 118/72 (BP Site: Left Arm, BP Position: Sitting, BP Cuff Size: Large Adult) Pulse 82 Resp 18 Wt 93.4 kg (206 lb) BMI 33.25 kg/m General Appearance: Well appearing, alert, in no acute distress, well-hydrated, well nourished. Obese, and using a cane. Brought back in a wheelchair. Lungs: Lungs clear to auscultation. No wheezing, rhonchi, rales.. Heart: RRR without murmur, gallop, or rubs. No ectopy. Health Maintenance List Shingrix Vaccine(1 of 2) Never done Hepatitis B Vaccine(1 of 3 - Risk 3-dose series) Never done DTaP,Tdap,Td Vaccine(2 - Td or Tdap) due on 10/04/2018 Diabetic Foot Exam due on 09/17/2021 Covid-19 Vaccine(4 - Pfizer series) due on 03/11/2022 Advance Directive Discussion due on 07/13/2022 Urine Albumin:Creatinine Ratio due on 01/10/2023 HbA1C due on 01/16/2023 Influenza Vaccine(1) due on 03/13/2023 Dilated Retinal Exam due on 05/15/2023 LDL Cholesterol due on 10/18/2023 Bone Density Screening Completed Pneumococcal Vaccine: 65+ Completed Data reviewed Appointment on 04/21/2023 Component Date Value Protein, Total 04/21/2023 8.1 (H) Albumin 04/21/2023 4.1 Calcium, Total 04/21/2023 9.7 Bilirubin, Total 04/21/2023 0.4 Alkaline Phosphatase 04/21/2023 87 AST 04/21/2023 21 ALT 04/21/2023 10 Glucose 04/21/2023 153 (H) BUN 04/21/2023 22 (H) Creatinine 04/21/2023 1.49 (H) Sodium 04/21/2023 132 (L) Potassium 04/21/2023 3.9 Chloride 04/21/2023 99 CO2 04/21/2023 19 (L) Anion Gap 04/21/2023 14 Estimated Glomerular Shane* 04/21/2023 35 (L) Cholesterol, Total 04/21/2023 156 Triglyceride 04/21/2023 165 (H) HDL Cholesterol 04/21/2023 33 (L) Non HDL Cholesterol 04/21/2023 123 Fasting Time 04/21/2023 12 VLDL Cholesterol 04/21/2023 33 (H) TC:HDL Ratio 04/21/2023 4.73 LDL Cholesterol 04/21/2023 90 LDL:HDL Ratio 04/21/2023 2.73 (H) Hemoglobin A1C 04/21/2023 7.4 (H) Estimated Average Glucose 04/21/2023 166 WBC 04/21/2023 8.06 RBC 04/21/2023 4.28 Hemoglobin 04/21/2023 12.8 Hematocrit 04/21/2023 39.7 MCV 04/21/2023 92.8 MCH 04/21/2023 29.9 MCHC 04/21/2023 32.2 RDW-CV 04/21/2023 14.7 Platelet Count 04/21/2023 292 MPV 04/21/2023 11.0 Absolute nRBC 04/21/2023 <0.01 TSH 04/21/2023 3.760 ASSESSMENT/PLAN: 1. Essential hypertension, benign - ICD9: 401.1, ICD10: I10 (primary diagnosis) - Controlled - Continue current medications - Recommend home blood pressure monitoring, to bring results to next visit - Encouraged sodium restriction, DASH or Mediterranean diet - Recommend regular aerobic exercise 2. Hyperlipidemia, unspecified hyperlipidemia type - ICD9: 272.4, ICD10: E78.5 - Controlled - Continue current medications - Counseled on healthy diet and regular exercise 3. Type 2 diabetes mellitus with other diabetic kidney complication, without long-term current use of insulin (HCC) - ICD9: 250.40, ICD10: E11.29 - Controlled - Continue current medications 4. Hypothyroidism, unspecified type - ICD9: 244.9, ICD10: E03.9 - Instructed patient on importance of taking on an empty stomach either first thing in the morning or at bedtime. - check TSH in 6 months 5. Stage 3a chronic kidney disease (HCC) - ICD9: 585.3, ICD10: N18.31 - Stable - Cont to monitor through routine labs 6. Gastroesophageal reflux disease, unspecified whether esophagitis present - ICD9: 530.81, ICD10: K21.9 - Stable - Continue current medication regimen. 7. Depression, unspecified depression type - ICD9: 311, ICD10: F32.A - Stable - Increase to TID - BUSPIRONE 15 MG TABLET 8. Paroxysmal atrial fibrillation (HCC) - ICD9: 427.31, ICD10: I48.0 - Stable - Continue current medication regimen. - cont f/u with Cardio 9. Iron deficiency anemia, unspecified iron deficiency anemia type - ICD9: 280.9, ICD10: D50.9 - Stable - Check CBC in 6 months 10. MGUS (monoclonal gammopathy of unknown significance) - ICD9: 273.1, ICD10: D47.2 - Cont f/u with Specialist 11. Constipation, unspecified constipation type - ICD9: 564.00, ICD10: K59.00 - Discussed using Miralax as directed 12. Need for influenza vaccination - ICD9: V04.81, ICD10: Z23 - INFLUENZA VACCINE, PRSV FREE, AGE 65+ YR, HIGH DOSE, QUADRIVALENT (FLUZONE HIGH-DOSE) - Receive in office today. 6 mo f/u with labs. I agree with the Chief Complaint, ROS, and Past Histories independently gathered by the clinical medical support specialist and the remaining scribed note accurately describes my personal service to the patient. Medical Decision Making: Problems: Moderate: 2+ stable chronic illnesses Data: Unique test result(s) reviewed: 3+ Unique test(s) ordered: 3+ Risk: Moderate: Drug management Medical Decision Making Level: 4 - Moderate Victor M Rocha MD The documentation for this note was completed by Cara Herring Ma acting as scribe for Victor M Rocha MD. April 28, 2023 10:42 AM. Cara Herring Ma documented in this encounterBucyrus [facility]06-24-2023 Miscellaneous Notes* Telephone Encounter - Yovnaa Painter APRN.CNP - 01/03/2023 12:35 PM EDT The following approved medication requests have been transmitted electronically. Requested Prescriptions Pending Prescriptions Disp Refills glimepiride (AMARYL) 4 mg tablet 90 tablet 3 Sig: Take 1 tablet by mouth daily with breakfast. Yovana Painter APRN.CNP * Telephone Encounter - Jessica Figueroa RN - 01/02/2023 4:38 PM EDT Patient has been identified by name and date of : Yes, Jessica Figueroa RN Date 01/02/2023 Time 4:39 pm Pharmacy phones for refill(s): Requested Prescriptions Pending Prescriptions Disp Refills glimepiride (AMARYL) 4 mg tablet 90 tablet 3 Sig: Take 1 tablet by mouth daily with breakfast. Date of last office visit with pcp: 12/11/2022 Future appt: 04/28/2023 Last 2 Encounter Wt Readings: Date: Wt: 12/11/2022 95.7 kg (211 lb) 10/24/2022 96.2 kg (212 lb) Previous labs/tests for medication: Diabetes: Hemoglobin A1C (%) Date Value 10/17/2022 8.2 04/17/2022 8.6 03/22/2021 8.3 09/14/2020 7.7 Blood Pressure: BUN (mg/dL) Date Value 10/17/2022 17 09/02/2021 24 Sodium (mmol/L) Date Value 10/17/2022 130 09/02/2021 130 Last 1 Encounter BP Readings: Date: BP: 12/11/2022 114/68 Liver Function: ALT (U/L) Date Value 10/17/2022 10 09/02/2021 11 AST (U/L) Date Value 10/17/2022 21 09/02/2021 17 Please advise. Thank you. Jessica Figueroa RN documented in this encounterBucyrus [facility] Hospital06-01-2023 History of Present illness Narrative* Victor M Rocha MD - 12/11/2022 2:20 PM EDT Images from the original note were not included. Chief Complaint Patient presents with: Hospital F/U: HPI Antonio Gupta is a 82 year old female who presents here today for ER Follow Up.. Pt presented to [facility] ER on 12/04/22 with c/o abdominal pain. Had labs, cardiac work up, CXR and CT abd/pelvis done. Diagnosed with colitis and UTI. She was sent home with Cipro 500 mg 1 pill BID, Flagyl 500 mg 1 pill TID, Bentyl 20 mg BID and Ondansetron 4 mg prn to treat both UTI and infectious colitis. At this time pt states that she is feeling better then went into the ED. Does continue to have issues with loose bowels. At times she will sit down and have some bowel incontinence. Feels this has been a little worse since being on the abx. Denies eating anything abnormal prior to this issues. Since being on the medication she's no longer had any of the abdominal pain or feeling unwell. Prior to going to the ED pt states that she noticed her urine was pretty cloudy but no other real UTI symptoms, other then the lower abdominal pain. This has since resolved, doing well. Pt today states that she is currently taking the Cipro (#10 days) and Flagyl (#10 days). She is not taking Zofran and completed the Bentyl medication. Does have intermittent RUQ pain (gallbladder?) after eating certain foods at times. Asking if there's a pill she can take to stop this. Will try to avoid strawberries and fatty foods. Also notes that the hospital told her 02 was low while in the hospital but she does not feel she needs this. Will occasionally have wheezing intermittently. No SOB. Below copied from [facility]: Chief Complaint: Abd Pain Narrative Narrative: Patient is an 82-year-old female with a past medical history of CAD, [place], on Eliquis for atrial fibrillation, hyperlipidemia who presents to the emergency department for lower abdominal pain that began at approximately 11 AM. Patient states she was baking bread when she developed lower abdominal pain like she had to go to the bathroom, sweatiness. She did get concerned because this is how she feltduring her first [place] in 2009. Patient also states over the last several weeks has had pain to the right upper quadrant. Patient denies any fever or chills however states she had rigors and could not stop shaking. Patient is unsure why she is breathing fast however she does not feel short of breath. She denies any sick contacts. She denies any chest pain or abdominal pain on arrival to the emergency department, she states that she did receive something in the squad for her pain. Treatment and Re-Evaluation: All radiologic examinations were read, reviewed by the emergency department attending. From these reads, a plan of care will be put in place. Patient appears to be in no distress, she appears nontoxic. Patient's respiratory exam shows tachypnea, she was 88 to 89% on room air. Patient also was having rigors. Patient's oral temp that I took was 98.3. Patient will receive a combination of both a abdominal work-up as well as a cardiac work-up. This will include a chest x-ray concerning for any pneumonia, COVID and flu secondary to the viral infection because of the rigors. Abdominal work-up concerning for any intra-abdominal process, bowel obstruction, cholecystitis. Patient EKG was unremarkable with a paced rhythm. Patient is currently not have any chest pain, shortness of breath, abdominal pain. Patient appears well, patient has a pulse oxygenation of 93 to 94% on room air. Patient's laboratory studies do show a leukocytosis white blood count 17.1, patient's chemistries show slight renal function with creatinine 1.5, patient is baseline. Patient's proBNP is 236, this is nonspecific secondary the patient not feeling short of breath. Alkaline phosphatase is slightly elevated 123. Lipase was negative. Patient's chest x-ray showed no acute process, did show some fractures of the T-spine however these were not acute. Patient CT scan of the abdomen pelvis shows focal wall thickening and inflammation in the rectosigmoid colon suggesting of colitis. This does explain the patient's lower abdominal pain, chills as well as leukocytosis. Patient's currently has no history of ACS, [place] is a initial troponin was negative, repeat troponin will be drawn. Patient will be treated as infectious colitis, she will be treated with Cipro and Flagyl. As long as her second opponent is negative, she does feel safe for discharge. I do agree and patient will follow-up outpatient. She will be given dicyclomine, Cipro and Flagyl as well as nausea medicine. She is instructed to follow-up as needed, to maintain hydration. All questions answered, patient stable for discharge. Patient's urinalysis also shows infection. Patient will have a urine sent for culture. She is on ciprofloxacin, this will cover UTI bacteria. Repeat troponin was negative. Treatment and Re-Evaluation Comments:: Seen and evaluated independently and in conjunction with nurse practitioner. Agree with notes above unless documented otherwise. Patient with lower abdominal pain, no other acute symptoms that started today gradually. She is a little short of breath but states this is typical for her and not necessarily worse than usual. Chronic cough unchanged. No hemoptysis. History of COPD not on home oxygen. She states she has had symptoms like this, pain in her lower abdomen, when she had diagnosed with an acute heart issue. EMS sent 3 versions of her EKG, all of which were reviewed and interpreted by myself, and showed ventricular paced and capture, with a left bundle branch block pattern and no criteria for STEMI. On exam, she has very mild diffuse lower abdominal tenderness, nonsurgical abdomen and otherwise nontender. Lungs are wheezy with a prolonged expiratory phase no respiratory distress, no crackles or rales. No significant pedal edema. Plan is CT we will also do a cardiac work-up I interpreted her EKG it is normal showing no differences from her other 3 EKGs and no criteria for STEMI. She was reassured as far as this is concerned, we are doing serial troponins in addition to confirm. Past medical history, appointments, medications, allergies reviewed. Previous Medical History PAST MEDICAL HISTORY Diagnosis Date Coronary atherosclerosis of unspecified type of vessel, [place] or graft Stent x 2010 Depressive disorder, not elsewhere classified Diverticulosis of colon (without mention of hemorrhage) Essential hypertension, benign Heart attack (HCC) Other and unspecified hyperlipidemia Palpitations Paroxysmal atrial fibrillation (HCC) Previous Surgical History PAST SURGICAL HISTORY Procedure Laterality Date APPENDECTOMY COLONOSCOPY FLX DX W/COLLJ SPEC WHEN PFRMD 1998 Colonoscopy repeat 10 years COLONOSCOPY FLX DX W/COLLJ SPEC WHEN PFRMD 05/18/12 Colonoscopy COLSC FLX W/REMOVAL LESION BY HOT BX FORCEPS 09/15/2016 EGD REMOVAL TUMOR POLYP/OTHER LESION SNARE TECH 09/15/2016 HEART SURGERY HX 09/2010 stents inserted LEFT HEART CATH,PERCUTANEOUS 2010 Cardiac cath, L heart PACEMAKER IMPLANT 04/2015 PERC TRANSL COR ANGIO 2010 Percutaneous Transluminal Coronary Angio Status SVT ABLATION W/ EP COMPLETE 03/31/2016 Dr. Buitrago TOTAL ABDOMINAL HYSTERECT W/WO RMVL TUBE OVARY 1985 Hysterectomy, ROSALIO W TRY ATRIOGRM HP Family History FAMILY HISTORY Problem Relation Age of Onset Cancer Mother liver other (old age) Father Cancer Sister thyroid Patient Allergies ALLERGIES Allergen Reactions Poison Fany Sulfa (Sulfonamide * Hives Current Medications Current Outpatient Medications on File Prior to Visit Medication Sig empagliflozin (JARDIANCE) 10 mg tablet Take 1 tablet by mouth once daily. Take 1 tablet once daily in the morning busPIRone (BUSPAR) 15 mg tablet Take 1 tablet by mouth twice daily. levothyroxine (EUTHYROX) 75 mcg tablet Take 1 tablet by mouth once daily. amitriptyline (ELAVIL) 50 mg tablet Take 1 tablet by mouth daily at bedtime. omeprazole (PRILOSEC) 40 mg capsule Take 1 capsule by mouth once daily. glimepiride (AMARYL) 4 mg tablet Take 1 tablet by mouth daily with breakfast. ketotifen fumarate (ALAWAY) 0.025 % (0.035 %) ophthalmic solution Use 1 Drop in both eyes twice daily. blood sugar diagnostic (ONETOUCH VERIO TEST STRIPS) test strip TEST BLOOD SUGAR ONCE DAILY lancets (ONE TOUCH DELICA) 33 gauge Test blood sugar(s) 1 daily. Dx: Other DM Code E 11.29 Insulin:No Hydrochlorothiazide 12.5 mg capsule Take 1 capsule by mouth once daily. losartan (COZAAR) 100 mg tablet Take 1 tablet by mouth once daily. metoprolol succinate ER (TOPROL XL) 25 mg 24 hr tablet Take 1 tablet by mouth once daily. amLODIPine (NORVASC) 10 mg tablet Take 1 tablet by mouth once daily. nitroglycerin sublingual (NITROSTAT) 0.4 mg SL tablet Dissolve 1 tablet under the tongue every 5 minutes as needed for Chest Pain. rivaroxaban (XARELTO) 20 mg tablet Take 20 mg by mouth daily with dinner. simvastatin (ZOCOR) 20 mg tablet Take 20 mg by mouth daily at bedtime. acetaminophen (TYLENOL EXTRA STRENGTH) 500 mg ORAL tablet Take 2 tablets by mouth every 4 hours as needed. No current facility-administered medications on file prior to visit. Social History Social History Tobacco Use Smoking status: Former Years: 20.00 Types: Cigarettes Quit date: 07/13/1981 Years since quittin.4 Smokeless tobacco: Never Tobacco comments: Pt smoked one pack every 3 days. Vaping Use Vaping Use: Never used Substance Use Topics Alcohol use: No Drug use: No EXAM: BP 114/68 (BP Site: Left Arm, BP Position: Sitting, BP Cuff Size: Large Adult) Pulse 84 Resp 20 Wt 95.7 kg (211 lb) BMI 34.06 kg/m General Appearance: Well appearing, alert, in no acute distress, well-hydrated, well nourished. andObese. Lungs: Lungs clear to auscultation. No wheezing, rhonchi, rales.. Heart: RRR without murmur, gallop, or rubs. No ectopy. Abdomen: Normal abdominal exam, Abdomen soft, non-tender. Bowel sounds normal. No masses, organomegaly. Health Maintenance List SHINGRIX VACCINE(1 of 2) Never done DTAP,TDAP,TD(2 - Td or Tdap) due on 10/04/2018 DIABETIC FOOT EXAM due on 09/17/2021 COVID-19 VACCINE(4 - Booster for Pfizer series) due on 03/11/2022 ADVANCE DIRECTIVE DISCUSSION due on 07/13/2022 URINE ALBUMIN:CREATININE RATIO due on 01/10/2023 HBA1C due on 01/16/2023 DILATED RETINAL EXAM due on 05/15/2023 LDL CHOLESTEROL due on 10/18/2023 BONE DENSITY Completed INFLUENZA Completed PNEUMOCOCCAL: 65+ Completed Data reviewed Scanned in documents. ASSESSMENT/PLAN: 1. Hospital discharge follow-up - ICD9: V67.59, ICD10: Z09 (primary diagnosis) 2. Colitis, infectious - ICD9: 009.0, ICD10: A09 Resolving; continue antibiotics 3. UTI (urinary tract infection), bacterial - ICD9: 599.0, 041.9, ICD10: N39.0, A49.9 Resolving; finish antibiotics, follow up prn 4. Benign neoplasm of meninges, unspecified (HCC) - ICD9: 225.2, ICD10: D32.9 Stable; monitor 5. Secondary pulmonary arterial hypertension (HCC) - ICD9: 416.8, ICD10: I27.21 Stable Continue current medications. 6. Stage 3a chronic kidney disease (HCC) - ICD9: 585.3, ICD10: N18.31 Monitor 7. Paroxysmal atrial fibrillation (HCC) - ICD9: 427.31, ICD10: I48.0 Stable Monitor 8. 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HCC) - ICD9: 296.99, ICD10: F33.8 Stable Continue current medications. 9. Atherosclerotic heart disease of [place] coronary artery with other forms of angina pectoris (HCC) - ICD9: 414.01, 413.9, ICD10: I25.118 Negative workup in hospital Continue current medications. Follow up as needed. Update Office if symptoms worsen. Follow up prn I agree with the Chief Complaint, ROS, and Past Histories independently gathered by the clinical medical support specialist and the remaining scribed note accurately describes my personal service to the patient. Medical Decision Making: Problems: Moderate: 2+ stable chronic illnesses Risk: Moderate: Drug management Medical Decision Making Level: 4 - Moderate Victor M Rocha MD The documentation for this note was completed by Cara Herring Ma acting as scribe for Victor M Rocha MD. December 11, 2022 2:13 PM. Cara Herring Ma [facility] History of Past illness Narrative* Problem Noted Date Diagnosed Date Resolved Date Benign neoplasm of meninges, unspecified 12/11/2022 10/30/2023 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2016 Unspecified gastritis and ga stroduodenitis without mention of hemorrhage 10/04/2008 08/13/2011 Overview: No alcohol or tobacco use as of 09-18 Using daily Zantac as of 09-18 H pylori 5 (positive if greater than 0.9) in 12-19: rec Prevpac Routine general medical exam ination at a health care facility 10/04/2008 08/12/2010 Overview: Pt declined colon testing as of 09-18 Mammo negative in 10-19 Contact dermatitis and other eczema, due to unspecified cause 10/17/2005 08/12/2010 documented as of this encounter (statuses as of 10/30/2023) [facility] History of Present illness Narrative* Victor M Rocha MD - 10/24/2022 10:40 AM EDT Chief Complaint Patient presents with: 6 Month Exam HPI Antonio Gupta is a 82 year old female who presents here today for a 6 month follow up. Pt here today for her routine follow up. She has some urinary incontinence. She was using depends, states she has not had any issues with this for the last 2 weeks. She is not urinating as much or having any leakage. Is drinking plenty fluids through the day. She does go to the bathroom during the night 4-5 times. GERD: Stable with use of Prilosec 40 mg once daily. DM: Checks sugars once daily but her blood sugars have not been very good, running around 186. She denies any hypoglycemic episodes or neuropathy symptoms. Pt on current regimen of Amaryl 4 mg once daily. F/u with Dr. Kilgore for DM Eye Exams. HTN: Denies that she checks her BP at home. Denies any episodes of sob or chest pain, occasional dizziness with sitting that lasts very briefly. Pt follows with [facility]. On current regimen of Norvasc 10 mg once daily, Losartan 100 mg once daily, HCTZ 12.5 mg daily and Toprol XL 25 mg daily. CAD/Lipid: Follows with [facility], has pacemaker. On current regimen of Xarelto 20 mg daily and Nitro prn. Currently not watching diet or exercising. Pt also takes Zocor 20 mg once daily. CKD: Monitoring through labs, stable. Depression/Anxiety: Amitriptyline increased to 50 mg at last visit. Pt felt her medication needed adjusted due to over thinking things and not being able to shut off her brain. She was beating herself up over small things. Pt also taking Buspar 15 mg bid. Thyroid: Stable on current regimen of Synthroid 175 mcg once daily. Denies any missed dosages. Pain: Chronic R knee pain, uses Tylenol prn and Voltaren Gel prn for pain relief. Has had 2 falls in the last 6 months. Uses a cane to get around and a walker as well. She came backin a wheel chair today. Fall Risk Assessment: Patient age 65 or over, unsteady, or was advised to use special equipment to aid ambulation (i.e., cane or walker)? Yes Has the patient had two falls in the past year, or one with injury? Yes Does the patient need to use their hands when pushing up from chair, or hold onto furniture when ambulating at home? Yes Is the patient worried about falling? Yes Please inform patient that answering Yes to one or more of the questions above can increase theirrisk of falling Patient is at greater risk for falls. Falls Instruction: Teaching document below - reviewed and given to patient [facility] - FALLS Prevention Safety Plan Past medical history, appointments, medications, allergies reviewed. Previous Medical History PAST MEDICAL HISTORY Diagnosis Date Coronary atherosclerosis of unspecified type of vessel, [place] or graft Stent x 2010 Depressive disorder, not elsewhere classified Diverticulosis of colon (without mention of hemorrhage) Essential hypertension, benign Heart attack (HCC) Other and unspecified hyperlipidemia Palpitations Paroxysmal atrial fibrillation (HCC) Previous Surgical History PAST SURGICAL HISTORY Procedure Laterality Date APPENDECTOMY COLONOSCOPY FLX DX W/COLLJ SPEC WHEN PFRMD 1998 Colonoscopy repeat 10 years COLONOSCOPY FLX DX W/COLLJ SPEC WHEN PFRMD 05/18/12 Colonoscopy COLSC FLX W/REMOVAL LESION BY HOT BX FORCEPS 09/15/2016 EGD REMOVAL TUMOR POLYP/OTHER LESION SNARE TECH 09/15/2016 HEART SURGERY HX 09/2010 stents inserted LEFT HEART CATH,PERCUTANEOUS 2010 Cardiac cath, L heart PACEMAKER IMPLANT 04/2015 PERC TRANSL COR ANGIO 2010 Percutaneous Transluminal Coronary Angio Status SVT ABLATION W/ EP COMPLETE 03/31/2016 Dr. Buitrago TOTAL ABDOMINAL HYSTERECT W/WO RMVL TUBE OVARY 1985 Hysterectomy, ROSALIO W TRY ATRIOGRM HP Family History FAMILY HISTORY Problem Relation Age of Onset Cancer Mother liver other (old age) Father Cancer Sister thyroid Patient Allergies ALLERGIES Allergen Reactions Poison Fany Sulfa (Sulfonamide * Hives Current Medications Current Outpatient Medications on File Prior to Visit Medication Sig busPIRone (BUSPAR) 15 mg tablet Take 1 tablet by mouth twice daily. levothyroxine (EUTHYROX) 75 mcg tablet Take 1 tablet by mouth once daily. amitriptyline (ELAVIL) 50 mg tablet Take 1 tablet by mouth daily at bedtime. omeprazole (PRILOSEC) 40 mg capsule Take 1 capsule by mouth once daily. glimepiride (AMARYL) 4 mg tablet Take 1 tablet by mouth daily with breakfast. ketotifen fumarate (ALAWAY) 0.025 % (0.035 %) ophthalmic solution Use 1 Drop in both eyes twice daily. blood sugar diagnostic ([place] VERIO TEST STRIPS) test strip TEST BLOOD SUGAR ONCE DAILY lancets (ONE TOUCH [employer] 33 gauge Test blood sugar(s) 1 daily. Dx: Other DM Code E 11.29 Insulin:No Hydrochlorothiazide 12.5 mg capsule Take 1 capsule by mouth once daily. losartan (COZAAR) 100 mg tablet Take 1 tablet by mouth once daily. metoprolol succinate ER (TOPROL XL) 25 mg 24 hr tablet Take 1 tablet by mouth once daily. amLODIPine (NORVASC) 10 mg tablet Take 1 tablet by mouth once daily. nitroglycerin sublingual (NITROSTAT) 0.4 mg SL tablet Dissolve 1 tablet under the tongue every 5 minutes as needed for Chest Pain. rivaroxaban (XARELTO) 20 mg tablet Take 20 mg by mouth daily with dinner. simvastatin (ZOCOR) 20 mg tablet Take 20 mg by mouth daily at bedtime. diphenhydrAMINE (ALLERGY) 25 mg capsule Take 1 capsule by mouth every 6 hours as needed. acetaminophen (TYLENOL EXTRA STRENGTH) 500 mg ORAL tablet Take 2 tablets by mouth every 4 hours as needed. No current facility-administered medications on file prior to visit. Social History Social History Tobacco Use Smoking status: Former Years: 20.00 Types: Cigarettes Quit date: 07/13/1981 Years since quittin.3 Smokeless tobacco: Never Tobacco comments: Pt smoked one pack every 3 days. Vaping Use Vaping Use: Never used Substance Use Topics Alcohol use: No Drug use: No EXAM: BP 120/78 Pulse 66 Resp 16 Wt 96.2 kg (212 lb) BMI 34.22 kg/m General Appearance: Well appearing, alert, in no acute distress, well-hydrated, well nourished.. Lungs: Lungs clear to auscultation. No wheezing, rhonchi, rales.. Heart: RRR without murmur, gallop, or rubs. No ectopy. Health Maintenance List SHINGRIX VACCINE(1 of 2) Never done DTAP,TDAP,TD(2 - Td or Tdap) due on 10/04/2018 DIABETIC FOOT EXAM due on 09/17/2021 COVID-19 VACCINE(4 - Booster for Pfizer series) due on 03/11/2022 ADVANCE DIRECTIVE DISCUSSION due on 07/13/2022 HBA1C due on 07/18/2022 URINE ALBUMIN:CREATININE RATIO due on 01/10/2023 LDL CHOLESTEROL due on 04/17/2023 DILATED RETINAL EXAM due on 05/15/2023 BONE DENSITY Completed INFLUENZA Completed PNEUMOCOCCAL: 65+ Completed Data reviewed Appointment on 10/17/2022 Component Date Value Protein, Total 10/17/2022 8.3 (A) Albumin 10/17/2022 4.0 Calcium, Total 10/17/2022 9.9 Bilirubin, Total 10/17/2022 0.5 Alkaline Phosphatase 10/17/2022 114 AST 10/17/2022 21 ALT 10/17/2022 10 Glucose 10/17/2022 176 (A) BUN 10/17/2022 17 Creatinine 10/17/2022 1.43 (A) Sodium 10/17/2022 130 (A) Potassium 10/17/2022 4.2 Chloride 10/17/2022 96 (A) CO2 10/17/2022 22 Anion Gap 10/17/2022 12 Estimated Glomerular Shane* 10/17/2022 36 (A) Cholesterol, Total 10/17/2022 170 Triglyceride 10/17/2022 184 (A) HDL Cholesterol 10/17/2022 31 (A) Non HDL Cholesterol 10/17/2022 139 (A) Fasting Time 10/17/2022 12 VLDL Cholesterol 10/17/2022 37 (A) TC:HDL Ratio 10/17/2022 5.48 (A) LDL Cholesterol 10/17/2022 102 (A) LDL:HDL Ratio 10/17/2022 3.29 (A) Hemoglobin A1C 10/17/2022 8.2 (A) Estimated Average Glucose 10/17/2022 189 TSH 10/17/2022 3.850 Appointment on 09/03/2022 Component Date Value WBC 09/03/2022 8.34 RBC 09/03/2022 4.62 Hemoglobin 09/03/2022 14.2 Hematocrit 09/03/2022 41.3 MCV 09/03/2022 89.4 MCH 09/03/2022 30.7 MCHC 09/03/2022 34.4 RDW-CV 09/03/2022 13.6 Platelet Count 09/03/2022 344 MPV 09/03/2022 9.7 Neutrophils % 09/03/2022 67.3 Abs Neut 09/03/2022 5.61 Lymphocytes % 09/03/2022 19.9 Abs Lymph 09/03/2022 1.66 Monocytes % 09/03/2022 9.0 Abs [place] 09/03/2022 0.75 Eosinophils % 09/03/2022 3.1 Abs Eosin 09/03/2022 0.26 Basophils % 09/03/2022 0.5 Abs Baso 09/03/2022 0.04 Immature Granulocytes % 09/03/2022 0.2 Abs Immature Gran 09/03/2022 <0.03 NRBC 09/03/2022 0.0 Absolute nRBC 09/03/2022 <0.01 Diff Type 09/03/2022 Auto Protein, Total 09/03/2022 8.5 (A) Albumin 09/03/2022 3.9 Calcium, Total 09/03/2022 9.8 Bilirubin, Total 09/03/2022 0.4 Alkaline Phosphatase 09/03/2022 120 AST 09/03/2022 15 ALT 09/03/2022 8 Glucose 09/03/2022 183 (A) BUN 09/03/2022 20 Creatinine 09/03/2022 1.58 (A) Sodium 09/03/2022 134 (A) Potassium 09/03/2022 2.9 (A) Chloride 09/03/2022 95 (A) CO2 09/03/2022 25 Anion Gap 09/03/2022 14 Estimated Glomerular Shane* 09/03/2022 32 (A) Protein, Total 09/03/2022 8.4 (A) Albumin for SPE 09/03/2022 3.82 Alpha 1 Globulin 09/03/2022 0.35 Alpha 2 Globulin 09/03/2022 0.83 Beta Globulin 09/03/2022 2.38 (A) Gamma Globulin 09/03/2022 1.03 Interpretation (Prot Karo* 09/03/2022 An M protein is identified on protein electrophoresis. (A) Interpretation Comment f* 09/03/2022 Recommend monoclonal protein analysis to further characterize the M protein. M protein co-migrates with normal beta fraction. Quantitation of the M protein will overestimate the amount of M protein present. M-Protein Location 09/03/2022 Beta Fraction 1 M-Protein Concentration 09/03/2022 1.14 (A) SPE Staff Review 09/03/[address] Mickey Menjivar MD ASSESSMENT/PLAN: 1. Type 2 diabetes mellitus with other diabetic kidney complication, without long-term current use of insulin (HCC) - ICD9: 250.40, ICD10: E11.29 (primary diagnosis) - Improving control - Continue current medications - COMP METABOLIC PANEL - LIPID PANEL BASIC - HGB A1C 2. Hyperlipidemia, unspecified hyperlipidemia type - ICD9: 272.4, ICD10: E78.5 - good control - Continue current medication. - COMP METABOLIC PANEL - LIPID PANEL BASIC 3. Coronary artery disease involving [place] coronary artery of [place] heart without angina pectoris- ICD9: 414.01, ICD10: I25.10 4. Essential hypertension, benign - ICD9: 401.1, ICD10: I10 - good control - Continue current medication(s) - Recommend home blood pressure monitoring, to bring results in on next visit - Goal of BP <140/90 - COMP METABOLIC PANEL - LIPID PANEL BASIC - CBC 5. Paroxysmal atrial fibrillation (HCC) - ICD9: 427.31, ICD10: I48.0 6. Iron deficiency anemia, unspecified iron deficiency anemia type - ICD9: 280.9, ICD10: D50.9 - CBC 7. Hypothyroidism, unspecified type - ICD9: 244.9, ICD10: E03.9 - Instructed patient on importance of taking on an empty stomach either first thing in the morning or at bedtime. - continue current dose of Synthroid 0.075 mg - TSH BLD 8. MGUS Follow with Oncology Discussed falls and ways to prevent Follow up in 6 months I agree with the Chief Complaint, ROS, and Past Histories independently gathered by the clinical medical support specialist and the remaining scribed note accurately describes my personal service to the patient. Medical Decision Making: Problems: Moderate: 2+ stable chronic illnesses Data: Unique test result(s) reviewed: 3+ Unique test(s) ordered: 3+ Risk: Moderate: Drug management Medical Decision Making Level: 4 - Moderate Victor M Rocha MD The documentation for this note was completed by Kandi Woody Ma acting as scribe for Victor M Rocha MD. October 24, 2022 10:26 AM. Kandi Woody Ma [facility] History of Present illness Narrative* Ida Magaña MD - 09/09/2022 12:17 PM EST Images from the original note were not included. 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 Patient stated that she was referred for anemia and that is when this abnormality was detected. She did not understand the abnormality but said it was related to cancer. She was not aware of her mild to occasionally moderate chronic kidney disease which probably is prerenal secondary to diuretics. She has not been anemic for several years and actually her CBCs have been excellent. She stated appropriately that she does not feel anemic She denies any symptoms of hypocalcemia and no bone pain or any symptoms that suggest impending cord compression Diagnostic Studies: Reviewed CURRENT MEDICATIONS: amitriptyline (ELAVIL) 50 mg tablet Take 1 tablet by mouth daily at bedtime. omeprazole (PRILOSEC) 40 mg capsule Take 1 capsule by mouth once daily. glimepiride (AMARYL) 4 mg tablet Take 1 tablet by mouth daily with breakfast. busPIRone (BUSPAR) 15 mg tablet Take 1 tablet by mouth twice daily. levothyroxine (EUTHYROX) 75 mcg tablet Take 1 tablet by mouth once daily. ketotifen fumarate (ALAWAY) 0.025 % (0.035 %) ophthalmic solution Use 1 Drop in both eyes twice daily. blood sugar diagnostic (SwipeClockTOUCH VERIO TEST STRIPS) test strip TEST BLOOD SUGAR ONCE DAILY lancets (ONE TOUCH DELICA) 33 gauge Test blood sugar(s) 1 daily. Dx: Other DM Code E 11.29 Insulin:No Hydrochlorothiazide 12.5 mg capsule Take 1 capsule by mouth once daily. losartan (COZAAR) 100 mg tablet Take 1 tablet by mouth once daily. metoprolol succinate ER (TOPROL XL) 25 mg 24 hr tablet Take 1 tablet by mouth once daily. amLODIPine (NORVASC) 10 mg tablet Take 1 tablet by mouth once daily. nitroglycerin sublingual (NITROSTAT) 0.4 mg SL tablet Dissolve 1 tablet under the tongue every 5 minutes as needed for Chest Pain. rivaroxaban (XARELTO) 20 mg tablet Take 20 mg by mouth daily with dinner. simvastatin (ZOCOR) 20 mg tablet Take 20 mg by mouth daily at bedtime. diphenhydrAMINE (ALLERGY) 25 mg capsule Take 1 capsule by mouth every 6 hours as needed. acetaminophen (TYLENOL EXTRA STRENGTH) 500 mg ORAL tablet Take 2 tablets by mouth every 4 hours as needed. ALLERGIES/INTOLERANCES: ALLERGIES Allergen Reactions Poison Fany Sulfa (Sulfonamide * Hives ROS: No fever, night sweats or weight loss No bone pain, unusual myalgias or arthralgias and no symptoms that suggest cord compression No shortness of breath, cough, expectoration, pleuritic discomfort, hemoptysis or purulent sputum No chest pain, orthopnea, paroxysmal nocturnal dyspnea, dizziness or lightheadedness No abdominal pain, nausea/vomiting, hematochezia, melena or significant alteration of bowel habits No dysuria, hematuria, increased urinary frequency, urgency or hesitancy PHYSICAL EXAM: BP 121/71 Pulse 90 Temp 36.6 C (97.8 F) (Temporal) Ht 167.6 cm (5' 6) Wt 95.5 kg (210 lb 8 oz) BMI33.98 kg/m2 Body mass index is 33.98 kg/m . ECO No lymphadenopathy or palpable masses No hepatosplenomegaly Rest of exam is unremarkable DATA REVIEW: I personally reviewed the patient's data and medical records. PERTINENT LABS: Reviewed PERTINENT IMAGING: Reviewed ASSESSMENT AND Plan IgG MGUS that has been stable around 1 g. [place] lambda ratio has been consistently normal. Not expected to progress into multiple myeloma or related neoplasm. Nevertheless recommend continued hematologic/oncologic yearly surveillance. The patient was able to ask questions and these were answered in detail. Ida Magaña MD cc: Viviana Rocha MD documented in this [facility]02-22-2023 Miscellaneous Notes* Telephone Encounter - Sole Luciano Pss - 09/03/2022 11:30 AM EST Per patient's chart she did come in today 09/03/22 for her lab work Sole Luciano Pss * Telephone Encounter - Sylwia Bonner Pss - 09/02/2022 1:29 PM EST Patient calling stating someone called her this morning, no documented. Patient states she was unaware of lab appointment today and office visit next week with Dr. Magaña. This PSS confirmed next weeks office visit. Please advise about lab draw and call patient. documented in this encounterBu[facility]11-21-2022 Miscellaneous Notes* Telephone Encounter - Carlos House APRN.CNP - 06/02/2022 12:35 PM EST The following approved medication requests have been transmitted electronically. Requested Prescriptions Signed Prescriptions Disp Refills amitriptyline (ELAVIL) 50 mg tablet 90 tablet 4 Sig: Take 1 tablet by mouth daily at bedtime. Authorizing Provider: CARLOS HOUSE APRN.CNP * Telephone Encounter - Kandi Woody Ma - 06/02/2022 12:30 PM EST Patient was told to increase her mg to 50. * Telephone Encounter - Dorie Coffey - 06/02/2022 11:08 AM EST Patient has been identified by name and date of : Yes Requested Prescriptions Pending Prescriptions Disp Refills amitriptyline (ELAVIL) 25 mg tablet Sig: Take 2 tablets by mouth daily at bedtime. Patient was told to increase her mg to 50. RX INSTRUCTIONS: Patient aware RX will be sent to pharmacy. No need to notify patient. Dorie Coffey documented in this encounterBu[facility]08-22-2022 Miscellaneous Notes* Telephone Encounter - Victor M Rocha MD - 03/03/2022 11:44 AM EDT OK to refill as ordered Victor M Rocha MD * Telephone Encounter - Dorie Coffey - 03/03/2022 10:51 AM EDT Patient has been identified by name and date of : Yes Requested Prescriptions Pending Prescriptions Disp Refills omeprazole (PRILOSEC) 40 mg capsule 90 capsule 3 Sig: Take 1 capsule by mouth once daily. LU-01/14/22 Labs-01/10/22 NOV-04/24/22 med filled 03/11/21 RX INSTRUCTIONS: Patient aware RX will be sent to pharmacy. No need to notify patient. Dorie Coffey documented in this encounterBu[facility]07-05-2022 Instructions* Patient Instructions* Kandi Woody Ma - 01/14/2022 9:48 AM EDT Increase Tylenol to 2 pills in AM and 2 pills in PM. May also try Voltaren Gel to rub on the knee. Can get the Voltaren gel over the counter. Increase Glimepiride to 4 mg daily. New script sent to [facility]. You may take 2 pills of the2 mg dosage till the new dosage arrives. documented in this encounterBucyrus [facility]07-05-2022 History of Present illness Narrative* Victor M Rocha MD - 01/14/2022 9:40 AM EDT Chief Complaint Patient presents with: F/U 3 Month HPI Antonio Gupta is a 81 year old female who presents here today for 3 month follow up. Denies any falls within the last year but does use a cane for support. Continues to do a lot of sewing. No bowel, Gi, or urinary issues. GERD: sx controlled on Prilosec 40 mg daily. MGUS: Follows with Dr. Priest, Hem/Onc as needed. DM: Checks BS once daily to a few times a week, FBS running around 160-180. No hypoglycemic episodes, no neuropathy sx. Follows with Dr. Kilgore for dm eye exams. Currently taking Amaryl 2 mg daily which was started last visit. She has not been watching her diet much. Tremors: only in the left hand, notices it when holding a cup of coffee or really concentrating on doing something. She is right hand dominant. She does a lot of sewing, makes Adult Bibs, baby bibs. Depression: Doing well on Amitriptyline 25 mg daily and Buspar 15 mg twice daily. HTN: Taking Losartan 100 mg daily, Norvasc 10 mg daily, HCTZ 12.5 mg daily, and Toprol XL 25 mg daily. Does not check BP at home, no chest pains, dizziness, or SOB. Lipid/CAD: Follows with Cardio, has pacemaker. Is on Xarelto 20 mg daily and Nitro to use prn. Taking Zocor 20 mg daily, tolerating well. Denies any regular exercise. She has not been watching diet. CKD: Stage III, monitored with labs. Thyroid: Taking Levothyroxine 75 mcg daily, no missed dosages. Pain: continued right knee pain, uses 2 Tylenol at bedtime to control pain so she can sleep. Does not take any Tylenol during the day. Denies any swelling in the knee. [facility] then sent to Ortho Dr. Cote back in 2017. Had xrays done at that time. She is not interested in having surgery on the knee. Past medical history, appointments, medications, allergies reviewed. Previous Medical History PAST MEDICAL HISTORY Diagnosis Date Coronary atherosclerosis of unspecified type of vessel, united [place] or graft Stent x 2010 Depressive disorder, not elsewhere classified Diverticulosis of colon (without mention of hemorrhage) Essential hypertension, benign Heart attack (HCC) Other and unspecified hyperlipidemia Palpitations Paroxysmal atrial fibrillation (HCC) Previous Surgical History PAST SURGICAL HISTORY Procedure Laterality Date APPENDECTOMY COLONOSCOPY FLX DX W/COLLJ SPEC WHEN PFRMD 1998 Colonoscopy repeat 10 years COLONOSCOPY FLX DX W/COLLJ SPEC WHEN PFRMD 05/18/12 Colonoscopy COLSC FLX W/REMOVAL LESION BY HOT BX FORCEPS 09/15/2016 EGD REMOVAL TUMOR POLYP/OTHER LESION SNARE TECH 09/15/2016 HEART SURGERY HX 09/2010 stents inserted LEFT HEART CATH,PERCUTANEOUS 2010 Cardiac cath, L heart PACEMAKER IMPLANT 04/2015 PERC TRANSL COR ANGIO 2010 Percutaneous Transluminal Coronary Angio Status SVT ABLATION W/ EP COMPLETE 03/31/2016 Dr. Buitrago TOTAL ABDOMINAL HYSTERECT W/WO RMVL TUBE OVARY 1985 Hysterectomy, ROSALIO W TRY ATRIOGRM HP Family History FAMILY HISTORY Problem Relation Age of Onset Cancer Mother liver other (old age) Father Cancer Sister thyroid Patient Allergies ALLERGIES Allergen Reactions Poison Fany Sulfa (Sulfonamide * Hives Current Medications Current Outpatient Medications on File Prior to Visit Medication Sig amitriptyline (ELAVIL) 25 mg tablet Take 1 tablet by mouth daily at bedtime. busPIRone (BUSPAR) 15 mg tablet Take 1 tablet by mouth twice daily. levothyroxine (EUTHYROX) 75 mcg tablet Take 1 tablet by mouth once daily. glimepiride (AMARYL) 2 mg tablet Take 1 tablet by mouth daily with breakfast. ketotifen fumarate (ALAWAY) 0.025 % (0.035 %) ophthalmic solution Use 1 Drop in both eyes twice daily. blood sugar diagnostic (ONETOUCH VERIO TEST STRIPS) test strip TEST BLOOD SUGAR ONCE DAILY omeprazole (PRILOSEC) 40 mg capsule Take 1 capsule by mouth once daily. lancets (ONE TOUCH [employer]ife[employer]ond [employer] 33 gauge Test blood sugar(s) 1 daily. Dx: Other DM Code E 11.29 Insulin:No Hydrochlorothiazide 12.5 mg capsule Take 1 capsule by mouth once daily. losartan (COZAAR) 100 mg tablet Take 1 tablet by mouth once daily. metoprolol succinate ER (TOPROL XL) 25 mg 24 hr tablet Take 1 tablet by mouth once daily. amLODIPine (NORVASC) 10 mg tablet Take 1 tablet by mouth once daily. nitroglycerin sublingual (NITROSTAT) 0.4 mg SL tablet Dissolve 1 tablet under the tongue every 5 minutes as needed for Chest Pain. rivaroxaban (XARELTO) 20 mg tablet Take 20 mg by mouth daily with dinner. simvastatin (ZOCOR) 20 mg tablet Take 20 mg by mouth daily at bedtime. diphenhydrAMINE (ALLERGY) 25 mg capsule Take 1 capsule by mouth every 6 hours as needed. acetaminophen (TYLENOL EXTRA STRENGTH) 500 mg ORAL tablet Take 2 tablets by mouth every 4 hours as needed. No current facility-administered medications on file prior to visit. Social History Social History Tobacco Use Smoking status: Former Smoker Years: 20.00 Types: Cigarettes Quit date: 07/13/1981 Years since quittin.5 Smokeless tobacco: Never Used Tobacco comment: Pt smoked one pack every 3 days. Vaping Use Vaping Use: Never used Substance Use Topics Alcohol use: No Drug use: No EXAM: BP 122/74 Pulse 66 Resp 16 Wt 97.1 kg (214 lb) BMI 33.52 kg/m General Appearance: Well appearing, alert, in no acute distress, well-hydrated, well nourished. andOverweight. Lungs: Lungs clear to auscultation. No wheezing, rhonchi, rales.. Heart: RRR without murmur, gallop, or rubs. No ectopy. Extremities: right knee; no swelling, no pain on palpation, good ROM. Health Maintenance List SHINGRIX VACCINE(1 of 2) Never done DTAP,TDAP,TD(2 - Td or Tdap) due on 10/04/2018 COVID-19 VACCINE(3 - Booster for Pfizer series) due on 02/03/2021 URINE ALBUMIN:CREATININE RATIO due on 09/14/2021 DIABETIC FOOT EXAM due on 09/17/2021 DILATED RETINAL EXAM due on 10/22/2021 HBA1C due on 12/28/2021 LDL CHOLESTEROL due on 09/27/2022 BONE DENSITY Completed INFLUENZA Completed ADVANCE DIRECTIVE DISCUSSION Completed PNEUMOCOCCAL: 65+ Completed Data reviewed Appointment on 01/10/2022 Component Date Value Creatinine, Ur Random (U* 01/10/2022 107.6 Albumin, Urine Random 01/10/2022 20.0 Albumin/Creat Ratio 01/10/2022 19 Hemoglobin A1C 01/10/2022 8.7 (A) Estimated Average Glucose 01/10/2022 203 Glucose 01/10/2022 198 (A) BUN 01/10/2022 20 Creatinine 01/10/2022 1.25 (A) Sodium 01/10/2022 133 (A) Potassium 01/10/2022 4.0 Chloride 01/10/2022 96 (A) CO2 01/10/2022 26 Anion Gap 01/10/2022 11 Calcium, Total 01/10/2022 9.8 Estimated Glomerular Shane* 01/10/2022 43 (A) ASSESSMENT/PLAN: 1. Type 2 diabetes mellitus with other diabetic kidney complication, without long-term current use of insulin (HCC) - ICD9: 250.40, ICD10: E11.29 (primary diagnosis) Controlled. - Continue current medications 2. Hyperlipidemia, unspecified hyperlipidemia type - ICD9: 272.4, ICD10: E78.5 - good control - Continue current medication. - Encouraged following a low fat, low cholesterol diet. - Discussed the benefits of regular aerobic exercise and weight loss. 3. Coronary artery disease involving united [place] coronary artery of united [place] heart without angina pectoris- ICD9: 414.01, ICD10: I25.10 Continue current medications. 4. Essential hypertension, benign - ICD9: 401.1, ICD10: I10 - good control - Continue current medication(s) - Recommended regular aerobic exercise. - Recommend home blood pressure monitoring, to bring results in on next visit - Goal of BP <130/80 5. Paroxysmal atrial fibrillation (HCC) - ICD9: 427.31, ICD10: I48.0 Continue current medications. 6. Hypothyroidism, unspecified type - ICD9: 244.9, ICD10: E03.9 - Instructed patient on importance of taking on an empty stomach either first thing in the morning or at bedtime. Continue current medications. 7. Stage 3a chronic kidney disease (HCC) - ICD9: 585.3, ICD10: N18.31 Continue to monitor 8. Depression, unspecified depression type - ICD9: 311, ICD10: F32.A Controlled Continue current medications. 9. Benign essential tremor - ICD9: 333.1, ICD10: G25.0 Continue to monitor 10. Arthritis of knee - ICD9: 716.96, ICD10: M17.10 Increase Tylenol to 2 pill in AM and 2 pills in PM May try Voltaren Gel Call if she would like referral to Ortho for consideration for injections Follow up in 3 months with fasting labs prior. I agree with the Chief Complaint, ROS, and Past Histories independently gathered by the clinical medical support specialist and the remaining scribed note accurately describes my personal service to the patient. Medical Decision Making: Problems: Moderate: 2+ stable chronic illnesses Data: Unique test result(s) reviewed: 3+ Unique test(s) ordered: 3+ Risk: Moderate: Drug management Medical Decision Making Level: 4 - Moderate Victor M Rocha MD The documentation for this note was completed by Kandi Woody Ma acting as scribe for Victor M Rocha MD. January 14, 2022 9:35 AM. Kandi Woody Ma documented in this encounterBu[facility]04-01-2022 History of Present illness Narrative* Victor M Rocha MD - 10/11/2021 11:00 AM EDT Chief Complaint Patient presents with: 6 Month Exam HPI Antonio Gupta is a 81 year old female who presents here today for a 6 mo f/u. Pt here today for a 6 month follow up and lab review. She does have an advanced directive. She did get both covid vaccines but not the booster. No bowel, Gi, or urinary issues. GERD: Stable with use of Prilosec 40 mg once daily. HTN/CAD: Denies checking BP at home or having symptoms of chest pain, sob or dizziness. Pt on current regimen Losartan 100 mg once daily, Toprol XL 25 mg once daily, Amlodipine 10 mg once daily and HCTZ 12.5 mg once daily. Pt has CKD stage III. Pt follows with Cardiology for CAD, pt has pacemaker in place. Pt on current regimen of Xarelto 20 mg once daily and prn use of Nitro. Admits to having a sharp pain to the left side of chest that comes on randomly and only lasts a half a second. She states this can occur at rest. She did have an episode 3-4 weeks ago when she was standing in the kitchen, felt strange all over, weak, felt she was going to pass out, went to sit down and it resolved within 2-3 minutes. Did not pass out. No further episodes since then and no chest pains or dizziness when this occurred. Depression: Stable on current regimen of Amitriptyline 25 mg once daily and Buspar 15 mg 1 tab po bid. Notes some family stressors that make symptoms worse. DM: Checking sugars once daily to a few times per week with FBS ranging running over 200. Denies any lows blood sugars or neuropathy symptoms. Pt on no current regimen and trying to control with dietand lifestyle. She follows with Dr. Kilgore for eye exams. She was seen at [facility] [place] last year. She was on glimepiride in the past, but this was stopped because her sugars were doing better. Thyroid: Stable on current regimen of Euthyrox 75 mcg once daily. Denies any missed dosages. Lipids: Tries to watch diet but does not do very good with it. No exercise. On current regimen Zocor 20 mg once daily, no issues with medication. Follows with Dr. Priest for MGUS. Only needs to follow with him as needed. Pain: Chronic right knee pain; takes Tylenol at bedtime to help her sleep. Uses a cane and wheelchair to get around. Pain is not any worse but is getting harder for her to get things done and move around. Denies any falls. Past medical history, appointments, medications, allergies reviewed. Previous Medical History PAST MEDICAL HISTORY Diagnosis Date Coronary atherosclerosis of unspecified type of vessel, united [place] or graft Stent x 2010 Depressive disorder, not elsewhere classified Diverticulosis of colon (without mention of hemorrhage) Essential hypertension, benign Heart attack (HCC) Other and unspecified hyperlipidemia Palpitations Paroxysmal atrial fibrillation (HCC) Previous Surgical History PAST SURGICAL HISTORY Procedure Laterality Date APPENDECTOMY COLONOSCOPY FLX DX W/COLLJ SPEC WHEN PFRMD 1998 Colonoscopy repeat 10 years COLONOSCOPY FLX DX W/COLLJ SPEC WHEN PFRMD 05/18/12 Colonoscopy COLSC FLX W/REMOVAL LESION BY HOT BX FORCEPS 09/15/2016 EGD REMOVAL TUMOR POLYP/OTHER LESION SNARE TECH 09/15/2016 HEART SURGERY HX 09/2010 stents inserted LEFT HEART CATH,PERCUTANEOUS 2010 Cardiac cath, L heart PACEMAKER IMPLANT 04/2015 PERC TRANSL COR ANGIO 2010 Percutaneous Transluminal Coronary Angio Status SVT ABLATION W/ EP COMPLETE 03/31/2016 Dr. Buitrago TOTAL ABDOMINAL HYSTERECT W/WO RMVL TUBE OVARY 1985 Hysterectomy, ROSALIO W TRY ATRIOGRM HP Family History FAMILY HISTORY Problem Relation Age of Onset Cancer Mother liver other (old age) Father Cancer Sister thyroid Patient Allergies ALLERGIES Allergen Reactions Poison Fany Sulfa (Sulfonamide * Hives Current Medications Current Outpatient Medications on File Prior to Visit Medication Sig ketotifen fumarate (ALAWAY) 0.025 % (0.035 %) ophthalmic solution Use 1 Drop in both eyes twice daily. EUTHYROX 75 mcg tablet TAKE 1 TABLET BY MOUTH ONCE DAILY ON AN EMPTY STOMACH FOR THYROID blood sugar diagnostic (HeadplayUCH VERIO TEST STRIPS) test strip TEST BLOOD SUGAR ONCE DAILY omeprazole (PRILOSEC) 40 mg capsule Take 1 capsule by mouth once daily. amitriptyline (ELAVIL) 25 mg tablet Take 1 tablet by mouth daily at bedtime. lancets (ONE TOUCH [employer] 33 gauge Test blood sugar(s) 1 daily. Dx: Other DM Code E 11.29 Insulin:No busPIRone (BUSPAR) 15 mg tablet Take 1 tablet by mouth twice daily. Hydrochlorothiazide 12.5 mg capsule Take 1 capsule by mouth once daily. losartan (COZAAR) 100 mg tablet Take 1 tablet by mouth once daily. metoprolol succinate ER (TOPROL XL) 25 mg 24 hr tablet Take 1 tablet by mouth once daily. amLODIPine (NORVASC) 10 mg tablet Take 1 tablet by mouth once daily. nitroglycerin sublingual (NITROSTAT) 0.4 mg SL tablet Dissolve 1 tablet under the tongue every 5 minutes as needed for Chest Pain. rivaroxaban (XARELTO) 20 mg tablet Take 20 mg by mouth daily with dinner. simvastatin (ZOCOR) 20 mg tablet Take 20 mg by mouth daily at bedtime. diphenhydrAMINE (ALLERGY) 25 mg capsule Take 1 capsule by mouth every 6 hours as needed. acetaminophen (TYLENOL EXTRA STRENGTH) 500 mg ORAL tablet Take 2 tablets by mouth every 4 hours as needed. No current facility-administered medications on file prior to visit. Social History Social History Tobacco Use Smoking status: Former Smoker Years: 20.00 Types: Cigarettes Quit date: 07/13/1981 Years since quittin.2 Smokeless tobacco: Never Used Tobacco comment: Pt smoked one pack every 3 days. Vaping Use Vaping Use: Never used Substance Use Topics Alcohol use: No Drug use: No EXAM: BP 124/70 Pulse 66 Resp 16 Wt 96.3 kg (212 lb 3.2 oz) BMI 33.24 kg/m General Appearance: Well appearing, alert, in no acute distress, well-hydrated, well nourished.. Lungs: Lungs clear to auscultation. No wheezing, rhonchi, rales.. Heart: RRR without murmur, gallop, or rubs. No ectopy. Health Maintenance List SHINGRIX VACCINE(1 of 2) Never done DTAP,TDAP,TD(2 - Td or Tdap) due on 10/04/2018 COVID-19 VACCINE(3 - Booster for Pfizer series) due on 02/03/2021 ADVANCE DIRECTIVE DISCUSSION Never done URINE ALBUMIN:CREATININE RATIO due on 09/14/2021 DIABETIC FOOT EXAM due on 09/17/2021 DILATED RETINAL EXAM due on 10/22/2021 HBA1C due on 12/28/2021 LDL CHOLESTEROL due on 09/27/2022 BONE DENSITY Completed INFLUENZA Completed PNEUMOVAX AGE 65 AND OVER WITH 5YR LOOKBACK Completed MENINGOCOCCAL CONJUGATE Aged Out Data reviewed Appointment on 09/27/2021 Component Date Value Protein, Total 09/27/2021 8.2 (A) Albumin 09/27/2021 4.1 Calcium, Total 09/27/2021 9.9 Bilirubin, Total 09/27/2021 0.5 Alkaline Phosphatase 09/27/2021 130 (A) AST 09/27/2021 22 ALT 09/27/2021 19 Glucose 09/27/2021 196 (A) BUN 09/27/2021 19 Creatinine 09/27/2021 1.13 (A) Sodium 09/27/2021 133 (A) Potassium 09/27/2021 3.7 Chloride 09/27/2021 97 CO2 09/27/2021 26 Anion Gap 09/27/2021 10 Estimated Glomerular Shane* 09/27/2021 49 (A) Cholesterol, Total 09/27/2021 164 Triglyceride 09/27/2021 174 (A) HDL Cholesterol 09/27/2021 29 (A) Non HDL Cholesterol 09/27/2021 135 (A) Fasting Time 09/27/2021 14 VLDL Cholesterol 09/27/2021 35 (A) TC:HDL Ratio 09/27/2021 5.66 (A) LDL Cholesterol 09/27/2021 100 (A) LDL:HDL Ratio 09/27/2021 3.45 (A) TSH 09/27/2021 2.960 Hemoglobin A1C 09/27/2021 9.7 (A) Estimated Average Glucose 09/27/2021 232 Appointment on 09/02/2021 Component Date Value Protein, Total 09/02/2021 7.9 Albumin for SPE 09/02/2021 3.63 Alpha 1 Globulin 09/02/2021 0.23 Alpha 2 Globulin 09/02/2021 0.72 Beta Globulin 09/02/2021 2.35 (A) Gamma Globulin 09/02/2021 0.97 Interpretation (Prot Karo* 09/02/2021 SEE COMMENT M-Protein Location 09/02/2021 Beta fraction M-Protein Concentration 09/02/2021 1.04 (A) SPE Staff Review 09/02/2021 Reviewed by Kristy Quiles MD, PhD. ([id number]) WBC 09/02/2021 6.68 RBC 09/02/2021 4.33 Hemoglobin 09/02/2021 13.3 Hematocrit 09/02/2021 39.5 MCV 09/02/2021 91.2 MCH 09/02/2021 30.7 MCHC 09/02/2021 33.7 RDW-CV 09/02/2021 12.9 Platelet Count 09/02/2021 283 MPV 09/02/2021 10.3 Neut% 09/02/2021 65.9 Abs Neut (ANC) 09/02/2021 4.38 Lymph% 09/02/2021 21.6 Abs Lymph 09/02/2021 1.44 [place]% 09/02/2021 9.9 Abs [place] 09/02/2021 0.66 Eosin% 09/02/2021 2.2 Abs Eosin 09/02/2021 0.15 Baso% 09/02/2021 0.4 Abs Baso 09/02/2021 0.03 Nucleated Reds 09/02/2021 0.0 Absolute nRBC 09/02/2021 <0.01 Diff Type 09/02/2021 Auto Diff Protein, Total 09/02/2021 7.8 Albumin 09/02/2021 4.0 Calcium 09/02/2021 9.3 Bilirubin, Total 09/02/2021 0.5 Alkaline Phosphatase 09/02/2021 133 (A) AST 09/02/2021 17 Glucose 09/02/2021 200 (A) BUN 09/02/2021 24 (A) Creatinine 09/02/2021 1.12 (A) Sodium 09/02/2021 130 (A) Potassium 09/02/2021 4.3 Chloride 09/02/2021 94 (A) CO2 09/02/2021 23 Anion Gap 09/02/2021 13 ALT 09/02/2021 11 eGFR- 09/02/2021 56 eGFR-All Other Races 09/02/2021 47 ASSESSMENT/PLAN: 1. Type 2 diabetes mellitus with other diabetic kidney complication, without long-term current use of insulin (HCC) - ICD9: 250.40, ICD10: E11.29 (primary diagnosis) worsening control - Add glimepiride (Amaryl) - ALBUMIN/CREAT RATIO RND UR - GLIMEPIRIDE 2 MG TABLET - HGB A1C - BASIC METABOLIC PNL 2. Depression, unspecified depression type - ICD9: 311, ICD10: F32.A - AMITRIPTYLINE 25 MG TABLET - BUSPIRONE 15 MG TABLET 3. Hypothyroidism, unspecified type - ICD9: 244.9, ICD10: E03.9 - Instructed patient on importance of taking on an empty stomach either first thing in the morning or at bedtime. Continue current medications. - LEVOTHYROXINE 75 MCG TABLET 4. MGUS (monoclonal gammopathy of unknown significance) - ICD9: 273.1, ICD10: D47.2 Follow with Heme/Onc 5. Essential hypertension, benign - ICD9: 401.1, ICD10: I10 - good control - Continue current medication(s) - Recommended regular aerobic exercise. - Recommend home blood pressure monitoring, to bring results in on next visit - Goal of BP <140/90 I agree with the Chief Complaint, ROS, and Past Histories independently gathered by the clinical medical support specialist and the remaining scribed note accurately describes my personal service to the patient. Medical Decision Making: Problems: Moderate: 1+ chronic illnesses with change and 2+ stable chronic illnesses Data: Unique test result(s) reviewed: 3+ Unique test(s) ordered: 2 Risk: Moderate: Drug management Medical Decision Making Level: 4 - Moderate Follow up in 3 months to check A1c Victor M Rocha MD The documentation for this note was completed by Kandi Woody Ma acting as scribe for Victor M Rocha MD. October 11, 2021 11:00 AM. 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 Unspecified gastritis and ga stroduodenitis without mention of hemorrhage 10/04/2008 08/13/2011 Overview: No alcohol or tobacco use as of 09-18 Using daily Zantac as of 09-18 H pylori 5 (positive if greater than 0.9) in 12-19: rec Prevpa Routine general medical exam ination at a health care facility 10/04/2008 08/12/2010 Overview: Pt declined colon testing as of 09-18 Mammo negative in 4-09 Contact dermatitis and other eczema, due to unspecified cause 10/17/2005 08/12/2010 documented as of this encounter (statuses as of 10/11/2021) [facility] of Past illness Narrative* Problem Noted Date Resolved Date 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 Unspecified gastritis and ga stroduodenitis without mention of hemorrhage 10/04/2008 08/13/2011 Overview: No alcohol or tobacco use as of 09-18 Using daily Zantac as of 09-18 H pylori 5 (positive if greater than 0.9) in 12-19: rec Prevpa Routine general medical exam ination at a health care facility 10/04/2008 08/12/2010 Overview: Pt declined colon testing as of 09-18 Mammo negative in 4-09 Contact dermatitis and other eczema, due to unspecified cause 10/17/2005 08/12/2010 documented as of this encounter (statuses as of 01/14/2022) [facility] of [facility] illness Narrative* Problem Noted Date Resolved Date 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 Unspecified gastritis and ga stroduodenitis without mention of hemorrhage 10/04/2008 08/13/2011 Overview: No alcohol or tobacco use as of 09-18 Using daily Zantac as of 09-18 H pylori 5 (positive if greater than 0.9) in 12-19: rec Prevpa Routine general medical exam ination at a health care facility 10/04/2008 08/12/2010 Overview: Pt declined colon testing as of 09-18 Mammo negative in 4-09 Contact dermatitis and other eczema, due to unspecified cause 10/17/2005 08/12/2010 documented as of this encounter (statuses as of 03/03/2022) [facility] Narrative* Problem Noted Date Resolved Date 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 Unspecified gastritis and ga stroduodenitis without mention of hemorrhage 10/04/2008 08/13/2011 Overview: No alcohol or tobacco use as of 09-18 Using daily Zantac as of 09-18 H pylori 5 (positive if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 Authorized [id number] New Request Auto-Generat ed Referral 04/01/2024 05/01/2025 1 1 Specialty Diagnoses / Procedures Referred By Yovani walton Referred To Contact MOLECULAR & FUNCTIONAL IMAGING Diagnoses MGUS (monoclonal gammopathy of unknown significance) Compression fracture of thoracic vertebra, unspecified thoracic vertebral level, initial encounter ([facility]) Lytic bone lesions on xray Procedures NM PET/CT WHOLE BODY INITIAL PET IMAGING FOR CT ATTENUATION WHOLE BODY LelasimonJoshua Roxy, DO [address] [place] [address] Molecular & Functional Imaging [address] [place] [address] Referral ID Status Reason Start Date Expiration Date Visits Requested Visits Authorized [id number] Authorized Auto-Generat ed Referral 04/01/2024 05/01/2025 1 1 Additional Source Comments INFORMATION SOURCE (unrecogn ized section and content) DATE CREATED AUTHOR 10/20/2020 [facility] DATE CREATED AUTHOR AUTHOR'S ORGANIZ ATION 03/24/2024 [facility] nt DATE CREATED AUTHOR AUTHOR'S ORGANIZ ATION 01/14/2025 [facility] DATE CREATED AUTHOR AUTHOR'S ORGANIZ ATION 02/08/2025 [facility] Source Comments (unrecognize d section and content) In the event this informatio n is protected by the Federal Confidentiality of Alcohol and Drug Abuse Patient Records regulations: The Federal rules restrict any use of the information to criminally investigate or prosecute any alcohol or drug abuse patient.[facility] the event this information is protected by the Federal Confidentiality of Alcohol and Drug Abuse Patient Records regulations: The Federal rules restrict any use of the information to criminally investigate or prosecute any alcohol or drug abuse patient.[facility] the event this information is protected by the Federal Confidentiality of Alcohol and Drug Abuse Patient Records regulations: The Federal rules restrict any use of the information to criminally investigate or prosecute any alcohol or drug abuse patient.[facility] the event this information is protected by the Federal Confidentiality of Alcohol and Drug Abuse Patient Records regulations: The Federal rules restrict any use of the information to criminally investigate or prosecute any alcohol or drug abuse patient.[facility] the event this information is protected by the Federal Confidentiality of Alcohol and Drug Abuse Patient Records regulations: The Federal rules restrict any use of the information to criminally investigate or prosecute any alcohol or drug abuse patient.[facility] the event this information is protected by the Federal Confidentiality of Alcohol and Drug Abuse Patient Records regulations: The Federal rules restrict any use of the information to criminally investigate or prosecute any alcohol or drug abuse patient.[facility] the event this information is protected by the Federal Confidentiality of Alcohol and Drug Abuse Patient Records regulations: The Federal rules restrict any use of the information to criminally investigate or prosecute any alcohol or drug abuse patient.[facility] the event this information is protected by the Federal Confidentiality of Alcohol and Drug Abuse Patient Records regulations: The Federal rules restrict any use of the information to criminally investigate or prosecute any alcohol or drug abuse patient.[facility] the event this information is protected by the Federal Confidentiality of Alcohol and Drug Abuse Patient Records regulations: The Federal rules restrict any use of the information to criminally investigate or prosecute any alcohol or drug abuse patient.[facility] the event this information is protected by the Federal Confidentiality of Alcohol and Drug Abuse Patient Records regulations: The Federal rules restrict any use of the information to criminally investigate or prosecute any alcohol or drug abuse patient.[facility] the event this information is protected by the Federal Confidentiality of Alcohol and Drug Abuse Patient Records regulations: The Federal rules restrict any use of the information to criminally investigate or prosecute any alcohol or drug abuse patient.[facility] the event this information is protected by the Federal Confidentiality of Alcohol and Drug Abuse Patient Records regulations: The Federal rules restrict any use of the information to criminally investigate or prosecute any alcohol or drug abuse patient.[facility] the event this information is protected by the Federal Confidentiality of Alcohol and Drug Abuse Patient Records regulations: The Federal rules restrict any use of the information to criminally investigate or prosecute any alcohol or drug abuse patient.[facility] the event this information is protected by the Federal Confidentiality of Alcohol and Drug Abuse Patient Records regulations: The Federal rules restrict any use of the information to criminally investigate or prosecute any alcohol or drug abuse patient.[facility] the event this information is protected by the Federal Confidentiality of Alcohol and Drug Abuse Patient Records regulations: The Federal rules restrict any use of the information to criminally investigate or prosecute any alcohol or drug abuse patient.[facility] the event this information is protected by the Federal Confidentiality of Alcohol and Drug Abuse Patient Records regulations: The Federal rules restrict any use of the information to criminally investigate or prosecute any alcohol or drug abuse patient.[facility] the event this information is protected by the Federal Confidentiality of Alcohol and Drug Abuse Patient Records regulations: The Federal rules restrict any use of the information to criminally investigate or prosecute any alcohol or drug abuse patient.[facility] the event this information is protected by the Federal Confidentiality of Alcohol and Drug Abuse Patient Records regulations: The Federal rules restrict any use of the information to criminally investigate or prosecute any alcohol or drug abuse patient.[facility] the event this information is protected by the Federal Confidentiality of Alcohol and Drug Abuse Patient Records regulations: The Federal rules restrict any use of the information to criminally investigate or prosecute any alcohol or drug abuse patient.[facility] the event this information is protected by the Federal Confidentiality of Alcohol and Drug Abuse Patient Records regulations: The Federal rules restrict any use of the information to criminally investigate or prosecute any alcohol or drug abuse patient.[facility]In the event this information is protected by the Federal Confidentiality of Alcohol and Drug Abuse Patient Records regulations: The Federal rules restrict any use of the information to criminally investigate or prosecute any alcohol or drug abuse patient.[facility]In the event this information is protected by the Federal Confidentiality of Alcohol and Drug Abuse Patient Records regulations: The Federal rules restrict any use of the information to criminally investigate or prosecute any alcohol or drug abuse patient.[facility]In the event this information is protected by the Federal Confidentiality of Alcohol and Drug Abuse Patient Records regulations: The Federal rules restrict any use of the information to criminally investigate or prosecute any alcohol or drug abuse patient.[facility]In the event this information is protected by the Federal Confidentiality of Alcohol and Drug Abuse Patient Records regulations: The Federal rules restrict any use of the information to criminally investigate or prosecute any alcohol or drug abuse patient.[facility]In the event this information is protected by the Federal Confidentiality of Alcohol and Drug Abuse Patient Records regulations: The Federal rules restrict any use of the information to criminally investigate or prosecute any alcohol or drug abuse patient.[facility]In the event this information is protected by the Federal Confidentiality of Alcohol and Drug Abuse Patient Records regulations: The Federal rules restrict any use of the information to criminally investigate or prosecute any alcohol or drug abuse patient.[facility]In the event this information is protected by the Federal Confidentiality of Alcohol and Drug Abuse Patient Records regulations: The Federal rules restrict any use of the information to criminally investigate or prosecute any alcohol or drug abuse patient.[facility]In the event this information is protected by the Federal Confidentiality of Alcohol and Drug Abuse Patient Records regulations: The Federal rules restrict any use of the information to criminally investigate or prosecute any alcohol or drug abuse patient.[facility]In the event this information is protected by the Federal Confidentiality of Alcohol and Drug Abuse Patient Records regulations: The Federal rules restrict any use of the information to criminally investigate or prosecute any alcohol or drug abuse patient.[facility]In the event this information is protected by the Federal Confidentiality of Alcohol and Drug Abuse Patient Records regulations: The Federal rules restrict any use of the information to criminally investigate or prosecute any alcohol or drug abuse patient.[facility]In the event this information is protected by the Federal Confidentiality of Alcohol and Drug Abuse Patient Records regulations: The Federal rules restrict any use of the information to criminally investigate or prosecute any alcohol or drug abuse patient.[facility]In the event this information is protected by the Federal Confidentiality of Alcohol and Drug Abuse Patient Records regulations: The Federal rules restrict any use of the information to criminally investigate or prosecute any alcohol or drug abuse patient.[facility]In the event this information is protected by the Federal Confidentiality of Alcohol and Drug Abuse Patient Records regulations: The Federal rules restrict any use of the information to criminally investigate or prosecute any alcohol or drug abuse patient.[facility]In the event this information is protected by the Federal Confidentiality of Alcohol and Drug Abuse Patient Records regulations: The Federal rules restrict any use of the information to criminally investigate or prosecute any alcohol or drug abuse patient.[facility]In the event this information is protected by the Federal Confidentiality of Alcohol and Drug Abuse Patient Records regulations: The Federal rules restrict any use of the information to criminally investigate or prosecute any alcohol or drug abuse patient.[facility]In the event this information is protected by the Federal Confidentiality of Alcohol and Drug Abuse Patient Records regulations: The Federal rules restrict any use of the information to criminally investigate or prosecute any alcohol or drug abuse patient.[facility]In the event this information is protected by the Federal Confidentiality of Alcohol and Drug Abuse Patient Records regulations: The Federal rules restrict any use of the information to criminally investigate or prosecute any alcohol or drug abuse patient.[facility]In the event this information is protected by the Federal Confidentiality of Alcohol and Drug Abuse Patient Records regulations: The Federal rules restrict any use of the information to criminally investigate or prosecute any alcohol or drug abuse patient.[facility]In the event this information is protected by the Federal Confidentiality of Alcohol and Drug Abuse Patient Records regulations: The Federal rules restrict any use of the information to criminally investigate or prosecute any alcohol or drug abuse patient.[facility]In the event this information is protected by the Federal Confidentiality of Alcohol and Drug Abuse Patient Records regulations: The Federal rules restrict any use of the information to criminally investigate or prosecute any alcohol or drug abuse patient.[facility]In the event this information is protected by the Federal Confidentiality of Alcohol and Drug Abuse Patient Records regulations: The Federal rules restrict any use of the information to criminally investigate or prosecute any alcohol or drug abuse patient.[facility]In the event this information is protected by the Federal Confidentiality of Alcohol and Drug Abuse Patient Records regulations: The Federal rules restrict any use of the information to criminally investigate or prosecute any alcohol or drug abuse patient.[facility]In the event this information is protected by the Federal Confidentiality of Alcohol and Drug Abuse Patient Records regulations: The Federal rules restrict any use of the information to criminally investigate or prosecute any alcohol or drug abuse patient.[facility]In the event this information is protected by the Federal Confidentiality of Alcohol and Drug Abuse Patient Records regulations: The Federal rules restrict any use of the information to criminally investigate or prosecute any alcohol or drug abuse patient.[facility]In the event this information is protected by the Federal Confidentiality of Alcohol and Drug Abuse Patient Records regulations: The Federal rules restrict any use of the information to criminally investigate or prosecute any alcohol or drug abuse patient.[facility]In the event this information is protected by the Federal Confidentiality of Alcohol and Drug Abuse Patient Records regulations: The Federal rules restrict any use of the information to criminally investigate or prosecute any alcohol or drug abuse patient.[facility]In the event this information is protected by the Federal Confidentiality of Alcohol and Drug Abuse Patient Records regulations: The Federal rules restrict any use of the information to criminally investigate or prosecute any alcohol or drug abuse patient.[facility]In the event this information is protected by the Federal Confidentiality of Alcohol and Drug Abuse Patient Records regulations: The Federal rules restrict any use of the information to criminally investigate or prosecute any alcohol or drug abuse patient.[facility]In the event this information is protected by the Federal Confidentiality of Alcohol and Drug Abuse Patient Records regulations: The Federal rules restrict any use of the information to criminally investigate or prosecute any alcohol or drug abuse patient.[facility]In the event this information is protected by the Federal Confidentiality of Alcohol and Drug Abuse Patient Records regulations: The Federal rules restrict any use of the information to criminally investigate or prosecute any alcohol or drug abuse patient.[facility]In the event this information is protected by the Federal Confidentiality of Alcohol and Drug Abuse Patient Records regulations: The Federal rules restrict any use of the information to criminally investigate or prosecute any alcohol or drug abuse patient.[facility]In the event this information is protected by the Federal Confidentiality of Alcohol and Drug Abuse Patient Records regulations: The Federal rules restrict any use of the information to criminally investigate or prosecute any alcohol or drug abuse patient.[facility]In the event this information is protected by the Federal Confidentiality of Alcohol and Drug Abuse Patient Records regulations: The Federal rules restrict any use of the information to criminally investigate or prosecute any alcohol or drug abuse patient.[facility]In the event this information is protected by the Federal Confidentiality of Alcohol and Drug Abuse Patient Records regulations: The Federal rules restrict any use of the information to criminally investigate or prosecute any alcohol or drug abuse patient.[facility]In the event this information is protected by the Federal Confidentiality of Alcohol and Drug Abuse Patient Records regulations: The Federal rules restrict any use of the information to criminally investigate or prosecute any alcohol or drug abuse patient.[facility]In the event this information is protected by the Federal Confidentiality of Alcohol and Drug Abuse Patient Records regulations: The Federal rules restrict any use of the information to criminally investigate or prosecute any alcohol or drug abuse patient.[facility]In the event this information is protected by the Federal Confidentiality of Alcohol and Drug Abuse Patient Records regulations: The Federal rules restrict any use of the information to criminally investigate or prosecute any alcohol or drug abuse patient.[facility]In the event this information is protected by the Federal Confidentiality of Alcohol and Drug Abuse Patient Records regulations: The Federal rules restrict any use of the information to criminally investigate or prosecute any alcohol or drug abuse patient.[facility]In the event this information is protected by the Federal Confidentiality of Alcohol and Drug Abuse Patient Records regulations: The Federal rules restrict any use of the information to criminally investigate or prosecute any alcohol or drug abuse patient.[facility] HospitalIn the event this information is protected by the Federal Confidentiality of Alcohol and Drug Abuse Patient Records regulations: The Federal rules restrict any use of the information to criminally investigate or prosecute any alcohol or drug abuse patient.[facility] the event this information is protected by the Federal Confidentiality of Alcohol and Drug Abuse Patient Records regulations: The Federal rules restrict any use of the information to criminally investigate or prosecute any alcohol or drug abuse patient.[facility]In the event this information is protected by the Federal Confidentiality of Alcohol and Drug Abuse Patient Records regulations: The Federal rules restrict any use of the information to criminally investigate or prosecute any alcohol or drug abuse patient.[facility]In the event this information is protected by the Federal Confidentiality of Alcohol and Drug Abuse Patient Records regulations: The Federal rules restrict any use of the information to criminally investigate or prosecute any alcohol or drug abuse patient.[facility] the event this information is protected by the Federal Confidentiality of Alcohol and Drug Abuse Patient Records regulations: The Federal rules restrict any use of the information to criminally investigate or prosecute any alcohol or drug abuse patient.[facility] the event this information is protected by the Federal Confidentiality of Alcohol and Drug Abuse Patient Records regulations: The Federal rules restrict any use of the information to criminally investigate or prosecute any alcohol or drug abuse patient.[facility] the event this information is protected by the Federal Confidentiality of Alcohol and Drug Abuse Patient Records regulations: The Federal rules restrict any use of the information to criminally investigate or prosecute any alcohol or drug abuse patient.[facility] the event this information is protected by the Federal Confidentiality of Alcohol and Drug Abuse Patient Records regulations: The Federal rules restrict any use of the information to criminally investigate or prosecute any alcohol or drug abuse patient.[facility]In the event this information is protected by the Federal Confidentiality of Alcohol and Drug Abuse Patient Records regulations: The Federal rules restrict any use of the information to criminally investigate or prosecute any alcohol or drug abuse patient.[facility]In the event this information is protected by the Federal Confidentiality of Alcohol and Drug Abuse Patient Records regulations: The Federal rules restrict any use of the information to criminally investigate or prosecute any alcohol or drug abuse patient.[facility] the event this information is protected by the Federal Confidentiality of Alcohol and Drug Abuse Patient Records regulations: The Federal rules restrict any use of the information to criminally investigate or prosecute any alcohol or drug abuse patient.[facility] HospitalIn the event this information is protected by the Federal Confidentiality of Alcohol and Drug Abuse Patient Records regulations: The Federal rules restrict any use of the information to criminally investigate or prosecute any alcohol or drug abuse patient.[facility] HospitalIn the event this information is protected by the Federal Confidentiality of Alcohol and Drug Abuse Patient Records regulations: The Federal rules restrict any use of the information to criminally investigate or prosecute any alcohol or drug abuse patient.[facility] HospitalIn the event this information is protected by the Federal Confidentiality of Alcohol and Drug Abuse Patient Records regulations: The Federal rules restrict any use of the information to criminally investigate or prosecute any alcohol or drug abuse patient.[facility] HospitalIn the event this information is protected by the Federal Confidentiality of Alcohol and Drug Abuse Patient Records regulations: The Federal rules restrict any use of the information to criminally investigate or prosecute any alcohol or drug abuse patient.[facility] Reason for Visit (unrecogniz ed section and content) Reason Comments 6 Month Exam Reason Comments F/U 3 Month Reason Onset Date Comments Refill Request 03/03/2022 Reason Onset Date Comments Refill Request 06/02/2022 Reason Comments Patient Question Appointment Reason Comments Established Patient Reason Comments 6 Month Exam Reason Comments Hospital F/U Reason Onset Date Comments Refill Request 01/02/2023 Reason Onset Date Comments F/U 6 Month Immunizations 04/28/2023 Flu vaccination Reason Comments Urinary Problem Pain and frequency x 6 days Reason Comments ED Follow-up UTI; last dose of Ma crobid 06/19/2023. Reason Comments Patient Update Reason Comments Opened In Error Reason Onset Date Comments Refill Request 08/31/2023 Reason Comments Appointment Reason Comments Pain, Back Reason Comments Social Work Services Reason Comments Non-Chemotherapy Treatment Specialty Diagnoses / Procedures [facility] Referred To Contact Diagnoses Iron deficiency anemia, unspecified iron deficiency anemia type Joshua Baker, DO [address] [place] [address] [facility] [address] [place] [address] Referral ID Status Reason Start Date Expiration Date V isits Requested Visits Authorized [id number] Authorized 11/18/2023 02/16/2024 99 99 Reason Comments Benefits Investigation Specialty Diagnoses / Procedures [facility] Referred To Contact Diagnoses Iron deficiency anemia, unspecified iron deficiency anemia type Joshua Baker, DO [address] [place] [address] [facility] [address] [place] [address] Reason Comments Refill Request Reason Comments Transition Of Care Reason Comments Results Reason Onset Date Comments Transition Of Care 01/01/2024 [facility] 12/17/23 Reason Comments Urinary Problem Burning, urgency, pr essure x 2 weeks Reason Comments Burn hot rice bag on back -blistered x 1 week Reason Onset Date Comments Refill Request 02/19/2024 Reason Comments Established Patient Reason Onset Date Comments Refill Request 03/03/2024 Specialty Diagnoses / Procedures Referred By Yovani walton Referred To Contact CT IMAGING Diagnoses MGUS (monoclonal gammopathy of unknown significance) Procedures CT WHOLE BODY SKULL TO KNEE WO IVCON UNLISTED COMPUTED TOMOGRAPHY PROCEDURE CT HEART NO CONTRAST QUANT EVAL CORONRY CALCIUM Joshua Baker DO [address] [place] [address] [place] [address] Referral ID Status Reason Start Date Expiration Date V isits Requested Visits Authorized [id number] Closed Auto-Generate d Referral 02/26/2024 03/27/2025 1 1 Reason Comments Breathing Problem Reason Comments verbal orders Reason Comments Radiology MRI Reason Comments 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 Reason Comments Follow Up Hosp follow up for C HF Reason Comments Home Health: Nursing Plan of Care Order Question Reason Onset Date Comments Refill Request 04/15/2024 Reason Comments Forms [facility] Reason Comments Patient Question patient took last of medication and threw away empty bottle and is not sure which med is Reason Comments Forms [employer]-request to do an Overnight pulse oximetry on room air Reason Comments Follow Up 6 month / Medicare Reason Onset Date Comments Refill Request 10/27/2024 Reason Onset Date Comments Refill Request 11/25/2024 Reason Onset Date Comments Care Coordination 12/15/2024 Chart review E nd Outreach for CHF GDMT care path Reason Comments 6 Month Exam Weakness and no ener gy Reason Onset Date Comments Results 02/06/2025 Care Teams (unrecognized sec tion and content) Credit Balance Specialist Relationship Specialty Start Date End Date Victor M Rocha MD [address] [place], [place] [id number] PCP - General Family Practice 09/17/10 Victor M Rocha MD [address] [place], [place] [id number] Family Practice 09/17/10 Credit Balance Specialist Relationship Specialty Start Date End Date Victor M Rocha MD [address] [place], [place] [id number] PCP - General Family Practice 09/17/10 Victor M Rocha MD [address] [place], [place] [id number] [phone] Family Practice 09/17/10 Credit Balance Specialist Relationship Specialty Start Date End Date Victor M Rocha MD [address] [place] [address] PCP - General Family Practice 09/17/10 Victor M Rocha MD [address] [place] [address] Family Practice 09/17/10 Credit Balance Specialist Relationship Specialty Start Date End Date Victor M Rocha MD [address] [place] [address] PCP - General Family Medicine 09/17/10 Victor M Rocha MD [address] [place] [address] Family Medicine 09/17/10 Team Status: Active Member Role Status Dates Dr. Victor M Rocha MD Family Provider Active Dr. Victor M Rocha MD Primary Care Provider Active Team Status: Inactive Member Role Status Dates Dr. Victor M Rocha MD Primary Care Provider, Referr ing Provider Active Marni Waldron Active Dr. Vinny Root MD Attending Provider Active Team Status: Inactive Member Role Status Dates Dr. Victor M Rocha MD Primary Care Provider Active Dr. Prema Degroot MD Emergency Provider Active Credit Balance Specialist Relationship Specialty Start Date End Date Victor M Rocha MD [address] [place] [address] PCP - General Family Medicine 09/17/10 Victor M Rocha MD [address] [place] [address] Family Medicine 09/17/10 Credit Balance Specialist Relationship Specialty Start Date End Date Victor M Rocha MD [address] [place] [address] PCP - General Family Medicine 09/17/10 Victor M Rocha MD [address] [place] [address] Family Medicine 09/17/10 Credit Balance Specialist Relationship Specialty Start Date End Date Victor M Rocha MD [address] [place] [address] PCP - General Family Medicine 09/17/10 Victor M Rocha MD [address] [place] [address] Family Medicine 09/17/10 Credit Balance Specialist Relationship Specialty Start Date End Date Victor M Rocha MD [address] [place] [address] PCP - General Family Medicine 09/17/10 Victor M Rocha MD [address] [place] [address] Family Medicine 09/17/10 Credit Balance Specialist Relationship Specialty Start Date End Date Victor M Rocha MD [address] [place] [address] PCP - General Family Medicine 09/17/10 Victor M Rocha MD [address] [place] [address] Family Medicine 09/17/10 Team Status: Inactive Member Role Status Dates Dr. Victor M Rocha MD Primary Care Provider, Referr ing Provider Active Dr. Vinny Root MD Attending Provider Active Team Status: Inactive Member Role Status Dates Dr. Victor M Rocha MD Primary Care Provider Active Dr. Steven Schaffer MD Attending Provider, Emergency Provider Active Team Status: Inactive Member Role Status Dates Dr. Victor M Rocha MD Primary Care Provider Active Dr. Vinny Root MD Attending Provider, Referring Pro vider Active Team Status: Active Member Role Status Dates Dr. Victor M Rocha MD Primary Care Provider Active Dr. Vinny Root MD Attending Provider Active Credit Balance Specialist Relationship Specialty Start Date End Date Victor M Rocha MD [address] [place] [address] PCP - General Family Medicine 09/17/10 Victor M Rocha MD [address] [place] [address] Family Medicine 09/17/10 Credit Balance Specialist Relationship Specialty Start Date End Date Victor M Rocha MD [address] [place] [address] PCP - General Family Medicine 09/17/10 Victor M Rocha MD [address] [place] [address] Family Medicine 09/17/10 Team Status: Inactive Member Role Status Dates Dr. Victor M Rocha MD Primary Care Provider Active Jignesh Thomas MD Emergency Provider Active Credit Balance Specialist Relationship Specialty Start Date End Date Victor M Rocha MD [address] [place] [address] PCP - General Family Medicine 09/17/10 Victor M Rocha MD [address] [place] [address] Family Medicine 09/17/10 Credit Balance Specialist Relationship Specialty Start Date End Date Victor M Rocha MD [address] [place] [address] PCP - General Family Medicine 09/17/10 Victor M Rocha MD [address] [place] [address] Family Medicine 09/17/10 Credit Balance Specialist Relationship Specialty Start Date End Date Victor M Rohca MD [address] [place] [address] PCP - General Family Medicine 09/17/10 Victor M Rocha MD [address] [place] [address] Family Medicine 09/17/10 Credit Balance Specialist Relationship Specialty Start Date End Date Victor M Rocha MD [address] [place] [address] PCP - General Family Medicine 09/17/10 Victor M Rocha MD [address] [place] [address] Family Medicine 09/17/10 Credit Balance Specialist Relationship Specialty Start Date End Date Victor M Rocha MD [address] [place] [address] PCP - General Family Medicine 09/17/10 Victor M Rocha MD [address] [place] [address] Family Medicine 09/17/10 Credit Balance Specialist Relationship Specialty Start Date End Date Victor M Rocha MD [address] [place] [address] PCP - General Family Medicine 09/17/10 Victor M Rocha MD [address] [place] [address] Family Medicine 09/17/10 Credit Balance Specialist Relationship Specialty Start Date End Date Victor M Rocha MD [address] [place] [address] PCP - General Family Medicine 09/17/10 Victor M Rocha MD [address] [place] [address] Family Medicine 09/17/10 Credit Balance Specialist Relationship Specialty Start Date End Date Victor M Rocha MD [address] [place] [address] PCP - General Family Medicine 09/17/10 Victor M Rocha MD [address] [place] [address] Family Medicine 09/17/10 Credit Balance Specialist Relationship Specialty Start Date End Date Victor M Rocha MD [address] [place] [address] PCP - General Family Medicine 09/17/10 Victor M Rocha MD [address] [place] [address] Family Medicine 09/17/10 Credit Balance Specialist Relationship Specialty Start Date End Date Victor M Rocha MD [address] [place] [address] PCP - General Family Medicine 09/17/10 Victor M Rocha MD [address] [place] [address] Family Medicine 09/17/10 Credit Balance Specialist Relationship Specialty Start Date End Date Victor M Rocha MD [address] [place] [address] PCP - General Family Medicine 09/17/10 Victor M Rocha MD [address] [place] [address] Family Medicine 09/17/10 Credit Balance Specialist Relationship Specialty Start Date End Date Victor M Rocha MD [address] [place] [address] PCP - General Family Medicine 09/17/10 Victor M Rocha MD [address] [place] [address] Family Medicine 09/17/10 Credit Balance Specialist Relationship Specialty Start Date End Date Victor M Rocha MD [address] [place] [address] PCP - General Family Medicine 09/17/10 Victor M Rocha MD [address] [place] [address] Family Medicine 09/17/10 Credit Balance Specialist Relationship Specialty Start Date End Date Victor M Rocha MD [address] [place] [address] PCP - General Family Medicine 09/17/10 Victor M Rocha MD [address] [place] [address] Family Medicine 09/17/10 Credit Balance Specialist Relationship Specialty Start Date End Date Victor M Rocha MD [address] [place] [address] PCP - General Family Medicine 09/17/10 Victor M Rocha MD [address] [place] [address] Family Medicine 09/17/10 Brittny Rivero, RN [address] [place] [address] Primary Care Uniform Force Captain 12/18/23 Credit Balance Specialist Relationship Specialty Start Date End Date Victor M Rocha MD [address] [place] [address] PCP - General Family Medicine 09/17/10 Victor M Rocha MD [address] [place] [address] Family Medicine 09/17/10 Brittny Rivero, RN [address] [place] [address] Primary Care Uniform Force Captain 12/18/23 Credit Balance Specialist Relationship Specialty Start Date End Date Victor M Rocha MD [address] [place] [address] PCP - General Family Medicine 09/17/10 Victor M Rocha MD [address] [place] [address] Family Medicine 09/17/10 Brittny Rivero, RN [address] [place] [address] Primary Care Uniform Force Captain 12/18/23 Credit Balance Specialist Relationship Specialty Start Date End Date Victor M Rocha MD [address] [place] [address] PCP - General Family Medicine 09/17/10 Victor M Rocha MD [address] [place] [address] Family Medicine 09/17/10 Brittny Rivero, RN [address] [place] [address] Primary Care Uniform Force Captain 12/18/23 Credit Balance Specialist Relationship Specialty Start Date End Date Victor M Rocha MD [address] [place] [address] PCP - General Family Medicine 09/17/10 Victor M Rocha MD [address] [place] [address] Family Medicine 09/17/10 Brittny Rivero, RN [address] [place] [address] Primary Care Uniform Force Captain 12/18/23 Credit Balance Specialist Relationship Specialty Start Date End Date Victor M Rocha MD [address] [place] [address] PCP - General Family Medicine 09/17/10 Victor M Rocha MD [address] [place] [address] Family Medicine 09/17/10 Brittny Rivero, NIYA [address] [place] [address] Primary Care Uniform Force Captain 12/18/23 Credit Balance Specialist Relationship Specialty Start Date End Date Victor M Rocha MD [address] [place] [address] PCP - General Family Medicine 09/17/10 Victor M Rocha MD [address] [place] [address] Family Medicine 09/17/10 Credit Balance Specialist Relationship Specialty Start Date End Date Victor M Rocha MD [address] [place] [address] PCP - General Family Medicine 09/17/10 Victor M Rocha MD [address] [place] [address] Family Medicine 09/17/10 Credit Balance Specialist Relationship Specialty Start Date End Date Victor M Rocha MD [address] [place] [address] PCP - General Family Medicine 09/17/10 Victor M Rocha MD [address] [place] [address] Family Medicine 09/17/10 Credit Balance Specialist Relationship Specialty Start Date End Date Victor M Rocha MD [address] [place] [address] PCP - General Family Medicine 09/17/10 Victor M Rocha MD [address] [place] [address] Family Medicine 09/17/10 Credit Balance Specialist Relationship Specialty Start Date End Date Victor M Rocha MD [address] [place] [address] PCP - General Family Medicine 09/17/10 Victor M Rocha MD [address] [place] [address] Family Medicine 09/17/10 Credit Balance Specialist Relationship Specialty Start Date End Date Victor M Rocha MD [address] [place] [address] PCP - General Family Medicine 09/17/10 Victor M Rocha MD [address] [place] [address] Family Medicine 09/17/10 Ivelisse Luis, NIYA [address] [place] [address] Primary Care Uniform Force Captain 03/30/24 Credit Balance Specialist Relationship Specialty Start Date End Date Victor M Rocha MD [address] [place] [address] PCP - General Family Medicine 09/17/10 Victor M Rocha MD [address] [place] [address] Family Medicine 09/17/10 Ivelisse Luis, NIYA [address] [place] [address] Primary Care Uniform Force Captain 03/30/24 Credit Balance Specialist Relationship Specialty Start Date End Date Victor M Rocha MD [address] [place] [address] PCP - General Family Medicine 09/17/10 Victor M Rocha MD [address] [place] [address] Family Medicine 09/17/10 Ivelisse Luis, NIYA [address] [place] [address] Primary Care Uniform Force Captain 03/30/24 Credit Balance Specialist Relationship Specialty Start Date End Date Victor M Rocha MD [address] [place] [address] PCP - General Family Medicine 09/17/10 Victor M Rocha MD [address] [place] [address] Family Medicine 09/17/10 Ivelisse Luis, NIYA [address] [place] [address] Primary Care Uniform Force Captain 03/30/24 Credit Balance Specialist Relationship Specialty Start Date End Date Victor M Rocha MD [address] [place] [address] PCP - General Family Medicine 09/17/10 Victor M Rocha MD [address] [place] [address] Family Medicine 09/17/10 Ivelisse Luis, NIYA [address] [place] [address] Primary Care Uniform Force Captain 03/30/24 Credit Balance Specialist Relationship Specialty Start Date End Date Victor M Rocha MD [address] [place] [address] PCP - General Family Medicine 09/17/10 Victor M Rocha MD [address] [place] [address] Family Medicine 09/17/10 Ivelisse Luis, NIYA [address] [place] [address] Primary Care Uniform Force Captain 03/30/24 Credit Balance Specialist Relationship Specialty Start Date End Date Victor M Rocha MD [address] [place] [address] PCP - General Family Medicine 09/17/10 Victor M Rocha MD [address] [place] [address] Family Medicine 09/17/10 Credit Balance Specialist Relationship Specialty Start Date End Date Victor M Rocha MD [address] [place] [address] PCP - General Family Medicine 09/17/10 Victor M Rocha MD [address] [place] [address] Family Medicine 09/17/10 Yovana Painter APRN.HOTEL SALES MANAGER [address] [place] [address] Supervisor Cd Area Family Medicine 06/19/24 Carlos House APRN.HOTEL SALES MANAGER [address] [place] [address] Supervisor Cd Area Family Medicine 06/28/24 Credit Balance Specialist Relationship Specialty Start Date End Date Victor M Rocha MD [address] [place] [address] PCP - General Family Medicine 09/17/10 Victor M Rocha MD [address] [place] [address] Family Medicine 09/17/10 Yovana Painter RETURNS PROCESSOR.HOTEL SALES MANAGER [address] [place] [address] Supervisor Cd Area Family Medicine 06/19/24 Carlos House APRN.HOTEL SALES MANAGER [address] [place] [address] Supervisor Cd Area Family Medicine 06/28/24 Prema Sampson, stone polisherDrywall Applicator 09/05/24 Credit Balance Specialist Relationship Specialty Start Date End Date Victor M Rocha MD [address] [place] [address] PCP - General Family Medicine 09/17/10 Victor M Rocha MD [address] [place] [address] Family Medicine 09/17/10 Yovana Painter RETURNS PROCESSOR.HOTEL SALES MANAGER [address] [place] [address] Supervisor Cd Area Family Medicine 06/19/24 Carlos House RETURNS PROCESSOR.HOTEL SALES MANAGER [address] [place] [address] Supervisor Cd Area Family Medicine 06/28/24 Prema Sampson RN Drywall Applicator 09/05/24 Credit Balance Specialist Relationship Specialty Start Date End Date Victor M Rocha MD [address] [place] [address] PCP - General Family Medicine 09/17/10 Victor M Rocha MD [address] [place] [address] Family Medicine 09/17/10 Yovana Painter, RETURNS PROCESSOR.HOTEL SALES MANAGER [address] [place] [address] Supervisor Cd Area Family Medicine 06/19/24 Carlos House RETURNS PROCESSOR.HOTEL SALES MANAGER [address] [place] [address] Supervisor Cd Area Family Medicine 06/28/24 Prema Sampson RN Drywall Applicator 09/05/24 Credit Balance Specialist Relationship Specialty Start Date End Date Victor M Rocha MD [address] [place] [address] PCP - General Family Medicine 09/17/10 Victor M Rocha MD [address] [place] [address] Family Medicine 09/17/10 Yovana Painter APRN.HOTEL SALES MANAGER [address] [place] [address] Supervisor Cd Area Family Medicine 06/19/24 Carlos House APRN.HOTEL SALES MANAGER [address] [place] [address] Supervisor Cd Area Family Medicine 06/28/24 Prema Sampson, stone polisherDrywall Applicator 09/05/24 Credit Balance Specialist Relationship Specialty Start Date End Date Victor M Rocha MD [address] [place] [address] PCP - General Family Medicine 09/17/10 Victor M Rocha MD [address] [place] [address] Family Medicine 09/17/10 Carlos House APRN.HOTEL SALES MANAGER [address] [place] [address] Supervisor Cd Area Family Medicine 06/28/24 Prema Sampson, stone polisherDrywall Applicator 09/05/24 Credit Balance Specialist Relationship Specialty Start Date End Date Victor M Rocha MD [address] [place] [address] PCP - General Family Medicine 09/17/10 Victor M Rocha MD [address] [place] [address] Family Medicine 09/17/10 Carlos House APRN.HOTEL SALES MANAGER [address] [place] [address] Supervisor Cd Area Family Medicine 06/28/24 Prema Sampson, stone polisherDrywall Applicator 09/05/24 Credit Balance Specialist Relationship Specialty Start Date End Date Victor M Rocha MD [address] [place] [address] PCP - General Family Medicine 09/17/10 Victor M Rocha MD [address] [place] [address] Family Medicine 09/17/10 Carlos House APRN.HOTEL SALES MANAGER [address] [place] [address] Supervisor Cd Area Family [facility] 06/28/24 Prema Sampson, stone polisherDrywall Applicator 09/05/24 Team Status: Active Member Role/Relationship Status Dates Dr. Victor M Rocha MD Family Provider Active Dr. Victor M Rocha MD Primary Care Provider Active Team Status: Inactive Member Role/Relationship Status Dates Dr. Victor M Rocha MD Primary Care Provider Active Start: October 10, 2024 End: October 10, 2024 Dr. Vinny Root MD Attending Provider Active S tart: October 10, 2024 End: October 10, 2024 Team Status: Inactive Member Role/Relationship Status Dates Dr. Victor M Rocha MD Primary Care Provider Active Start: November 18, 2024 End: November 18, 2024 Dr. Victor M Rocha MD Referring Provider Active Start: November 18, 2024 End: November 18, 2024 Amber Palafox PA, PA Attending Provider Active Start: November 18, 2024 End: November 18, 2024 Team Status: Inactive Member Role/Relationship Status Dates Dr. Victor M Rocha MD Primary Care Provider Active Start: January 09, 2025 End: January 09, 2025 Dr. Vinny Root MD Attending Provider Active S tart: January 09, 2025 End: January 09, 2025 Credit Balance Specialist Relationship Specialty Start Date End Date Victor M Rocha MD [address] [place] [address] PCP - General Family Medicine 09/17/10 Victor M Rocha MD [address] [place] [address] Family Medicine 09/17/10 Carlos House APRN.HOTEL SALES MANAGER [address] [place] [address] Supervisor Cd Area Family Medicine 06/28/24 Prema Sampson, stone polisherDrywall Applicator 09/05/2402/02 Credit Balance Specialist Relationship Specialty Start Date End Date Victor M Rocha MD [address] [place] [address] PCP - General Family Medicine 09/17/10 Victor M Rocha MD [address] [place] [address] Family Medicine 09/17/10 Carlos House APRN.HOTEL SALES MANAGER [address] [place] [address] Supervisor Cd Area Family Medicine 06/28/24 Credit Balance Specialist Relationship Specialty Start Date End Date Victor M Rocha MD [address] [place] [address] PCP - General Family Medicine 09/17/10 Victor M Rocha MD [address] [place], [place] [id number] [facility] 09/17/10 Carlos House APRN.HOTEL SALES MANAGER [address] [place], [place] [id number] [facility] 06/28/24 Credit Balance Specialist Relationship Specialty Start Date End Date Victor M Rocha MD [address] [place], [place] [address] PCP - General Family Medicine 09/17/10 Victor M Rocha MD [address] [place], [place] [address] [facility] 09/17/10 Carlos House APRN.HOTEL SALES MANAGER [address] [place], [place] [address] [facility] 06/28/24 Goals (unrecognized section and content) Goals may be documented in a n alternate sectionGoals may be documented in an alternate sectionGoals may be documented in an alternate sectionGoals may be documented in an alternate sectionGoals may be documented in an alternate sectionGoals may be documented in an alternate section FOR RECORDS PERTAINING TO PATIENTS WHO ARE OR HAVE BEEN ENROLLED IN A CHEMICAL DEPENDENCY/SUBSTANCEABUSE PROGRAM, SOME INFORMATION MAY BE OMITTED. This clinical summary was aggregated from multiple sources. Caution should be exercised in using it in the provision of clinical care. This summary normalizes information from multiple sources, and as a consequence, information in this document may materially change the coding, format and clinical context of patient data. In addition, data may be omitted in some cases. CLINICAL DECISIONS SHOULD BE BASED ON THE PRIMARY CLINICAL RECORDS. [facility] [employer] [facility]. provides no warranty or guarantee of the accuracy or completeness of information in this document.
--- OUTSIDE RECORDS SUMMARY | 2025-02-08 21:19 | XMS RPT_ITS | CCD ---
Author Organization [facility] Care Team Providers Care Installation Service Representative Name Role Phone Kristan Narvaez Unavailable Unavailable [...] ) Dr. Victor M Rocha Referring Provider Dr. Vinny Root Attending Provider Victor M Rohca MD Primary Care Provider Josefa RN, Brittny Unavailable JOSHUA BAKER Referring Unavailable VICTOR M ROCHA Primary Care Unavailable Sandrine NÚÑEZ, Ivelisse Sal Unavailable Tannhof TOLL TEST WORKER.HEALTH POLICY NURSE, Yovana Unavailable Lacy TOLL TEST WORKER.HEALTH POLICY NURSE, Carlos Unavailable Bill NÚÑEZ, Prema Unavailable Unavailable [place] TOLL TEST WORKER.HEALTH POLICY NURSE, Yovana Unavailable Unavail able [place] TOLL TEST WORKER.HEALTH POLICY NURSE, Yovana Unavailable Dr. Victor M Rocha MD Primary Care Provider Ivett MORRISON, Dr. Casillas Attending Provider Dr. Victor M Rocha MD Referring Provider Amber Alvarez Attending Provider Eldershaunna, Victor M Primary Care Unavailable Terrance Zuniga Consulting Unavailable Mosteller, Juice Attending Unavailable Mosteller, Juice Admitting Unavailable Ivett, Vinny Consulting Unavailable Amber Alvarez Attending Unavail able Amber Alvarez Referring Unavail able Elderbrock, Victor M Primary Care Unavailable Ivett, Voca Attending Unavailable [place], Victor M Primary Care [...] [place], Victor M Primary Care Unavailable Ivett, Voca Attending Unavailable [place], Victor M Primary Care Unavailable Amber Alvarez Attending Unavail able [place], Victor M Referring Unavailable [place], Victor M Primary Care Unavailable Ivett, Voca Attending Unavailable Jose Daniel Parra Attending Unavailable [...] [place], Victor M Primary Care Unavailable Ivett, Voca Attending Unavailable [place], Vicotr M Referring Unavailable [place], Victor M Primary Care Unavailable Javy BRISCOE, Amber Mitchell Attending Unavail able Ivett, Voca Attending Unavailable [place], Victor M Primary Care [...] sources) POISON FANY EXTRACT Drug Allergy 6 [facility] Work Phone: Sulfonamides (antibiotic) (2 sources) Sulfonamides (Antibiotic) Drug Allergy 6 Hives [facility] (2 sources) aspirin Drug Allergy 7 anemia [facility] Work Phone: (2 sources) Sulfonamides (Antibiotic) drug allergy 1 [facility] Work Phone: (20 sources) POISON FANY EXTRACT; Translations: [POISON FANY] Drug Allergy 6 [facility] Work Phone: (20 sources) Sulfonamides (Antibiotic); Translations: [SULFA (SULFONAMIDE ANTIBIOTICS)] Drug Allergy 6 [facility] (5 sources) Sulfonamides (Antibiotic) Allergy to substance 3 [facility] (1 source) Sulfonamides (Antibiotic) Drug allergy (disorder) [address] [facility] (1 source) poison fany extract Drug allergy (disorder) [address] [facility] Medications Current Medications Medication Drug [...] One tablet by mouth daily AMITRIPTYLINE HCL [id number] Sanaz Beverly RN Comment on above: Take [...] daily (in addition to Exforge) AMLODIPINE BESYLATE [id number] Amber Palafox PA-C Start: 10-10-2013 End: 10-10-2013 [...] on above: Take 1 capsule by mo [facility] three times a day for 7 days. [...] bruno once daily TOPROL XL 25 MG [id number] One tablet by mouth daily METOPROLOL SUCCINATE [id number] Amber Palafox PA-C Start: 09-07-2012 take 1 tablet by bruno twice daily METOPROLOL SUCCINATE ER 25 MG [id number] One tablet by mouth twice daily METOPROLOL SUCCINATE [id number] Sanaz Beverly RN Comment on above: Take [...] SL tablet Indications: 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 Dissolve 1 tablet [...] Comment on above: Take 1 capsule by [facility] once daily. microencapsulated potassium chloride 20 meq [...] by mouth daily POTASSIUM CHLORIDE JOHANNY CR [id number] Vinny Root MD Start: 10-10-2013 End: 06-16-2017 [...] tablet by mouth daily every night SIMVASTATIN [id number] Vinny Root MD Start: 10-21-2010 End: 12-22-2024 [...] STRENGTH 500 MG TABS As needed ACETAMINOPHEN [id number] Dee Stephen Mago Start: 10-08-2010 take 2 [...] One tablet by mouth daily AMIODARONE HCL 96286685054 Vinny Root MD Start: 05-08-2015 End: 08-28-2015 take 1 tablet by mouth once daily AMIODARONE HCL 200 MG TABS One tablet by mouth daily AMIODARONE HCL [id number] JOSE ANGEL SteinbergC amLODIPine 10 mg / hydroCHLOROthiazide 25 mg / valsartan 320 mg oral tablet (20 sources) Thiazide Diuretic, Dihydropyridine Calcium Channel Rosaura, Angiotensin 2 Receptor Rosaura Start: 08-21-2017 End: 02-26-2018 Biwkizdncj-Mvlaytjpt-Ylerpcp id (Exforge Hct) 10-320-25 mg tablet Discontinued 1 {tbl} PO daily 90 0 August 21, 2017 6:04pm February 26, 2018 11:10am Start: 10-21-2010 take 1 tablet by bruno once daily EXFORGE HCT 10-320-25 MG TABS One tablet by mouth daily ZLYHIEYWQT-QFXQAWQLO-ZFMM [id number] Amber Palafox PA-C Start: 10-21-2010 EXFORGE HCT 10 -320-25 MG TABS 1/2 tablet twice daily RZXIUCZHFW-CAPDGLXCN-NBXV [id number] Edwige Lentz MICRO PHOTOGRAPHER Start: 10-21-2010 take 1 tablet by bruno th once daily, then take 5-160 tablets by mouth EXFORGE HCT 5-160-25 MG TABS One tablet by mouth daily QUIMRMPOPX-YPKCITWET-SAYV 56728692873 Vinny Root MD aspirin 81 mg oral tablet (10 sources) Nonsteroidal Anti-inflammatory Drug Start: 11-17-2014 take 1 tablet by mouth once daily ASPIRIN 81 MG TABS One tablet by mouth daily ASPIRIN [id number] Vinny Root MD Start: 11-17-2014 End: 11-21-2016 take 1 tablet by mouth once daily ASPIRIN EC 81 MG TBEC One tablet by mouth daily ASPIRIN 55654412044 Sanaz Beverly RN Start: 10-21-2010 End: 11-17-2014 take 1 tablet by mouth once daily ASPIRIN 325 MG TABS One tablet by mouth daily ASPIRIN 41892846779 Vinny Root MD atenolol 25 mg oral tablet (4 sources) beta-Adrenergic Rosaura Start: 10-21-2010 End: 09-07-2012 take 1 tablet by mouth once daily ATENOLOL 25 MG TABS One tablet by mouth daily ATENOLOL 24156587274 Vinny Root MD atorvastatin 40 mg oral tablet (8 sources) HMG-CoA Reductase Inhibitor Start: 08-31-2012 End: 08-08-2013 LIPITOR 40 MG TABS One tablet by mouth daily-ON HOLD ATORVASTATIN CALCIUM [id number] Tena Roberts RN ciprofloxacin 500 mg oral [...] One tablet by mouth daily CLOPIDOGREL BISULFATE 59972267034 Vinny Root MD diazePAM 5 mg oral [...] MG CAPS a s needed DICYCLOMINE HCL 65383840582 Amber Palafox PA-C diphenhydrAMINE hydrochloride 25 mg [...] 25 MG TABS PRN 2011 DIPHENHYDRAMINE HCL [id number] Amber Palafox PA-C Comment on above: Take 1 capsule by [facility] every 6 hours as needed. 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 0 03/18/2018 12/24/2023 Discontinued (Discontinued by another Health Care Provider) Start: 02-26-2018 End: 12-17-2023 take 1 tablet by mouth once daily Hydrochlorothiazide 12.5 mg tablet Discontinued 12.5 mg PO DAILY December 14, 2023 12:00am December 17, 2023 9:48am BLOOD PRESSURE Comment on above: Take 1 capsule by [facility] once daily. 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; Translations: [Coronary arteriosclerosis in [place] artery] Onset: 1 05-15-2016 Chronic Deficiency and [...] 05-15-2016 Episodic Other aftercare (2 sources) Other shelter (current) drug therapy; Translations: [Other terminologist (current) drug therapy] Onset: 5 02-13-2015 Episodic [...] 02-07-2025 BACTERIA UL 4507.8 uL High Negative [facility] Comment on above: Order Comment: Speci men Type: URINE SPECIMENOrdering Facility: [facility] [place] Address: [address] [place] [address] Performed By: #### 2 4356-8 ####[facility] LABCLIA [id number] [place] [address] [place] Bilirubin Ql (U) Negative Normal Negative [facility] Comment on above: Order Comment: Speci men Type: URINE SPECIMENOrdering Facility: [facility] [place] Address: [address] [place] [address] Performed By: #### 2 4356-8 ####[facility] LABCLIA [id number] [place] [address] [place] Clarity (Unsp spec) Clear Normal Clear [facility] Comment on above: Order Comment: Speci men Type: URINE SPECIMENOrdering Facility: [facility] [place] Address: [address] [place] [address] Performed By: #### 2 4356-8 ####[facility] LABCLIA [id number] [place] [id number] [place] Color (U) Yellow Normal Yellow [facility] Comment on above: Order Comment: Speci men Type: URINE SPECIMENOrdering Facility: [facility] [place] Address: [address] [place] [address] Performed By: #### 2 4356-8 ####[facility] LABCLIA [id number] [place] [id number] [place] Epithelial cells LM.HPF (Urine sed) [#/Area] None Seen Normal [facility] Comment on above: Order Comment: Speci men Type: URINE SPECIMENOrdering Facility: [facility] [place] Address: [address] [place] [address] Performed By: #### 2 4356-8 ####[facility] LABCLIA [id number] [address] [place] [address] [place] Glucose Test strip (U) [Mass/Vol] 2+ Abnormal Negative [facility] Comment on above: Order Comment: Speci men Type: URINE SPECIMENOrdering Facility: [facility] [place] Address: [address] [place] [address] Performed By: #### 2 4356-8 ####[facility] LABCLIA [id number] [address], [place] [address] [place] Hemoglobin Ql (U) Negative Normal Negative [facility] Comment on above: Order Comment: Speci men Type: URINE SPECIMENOrdering Facility: [facility] [place] Address: [address] [place] [address] Performed By: #### 2 4356-8 ####[facility] LABCLIA [id number] [address], [place] [address] [place] Hyaline casts (Urine sed) [#/Area] 1-3 /LPF Abnormal 0 /LPF [facility] Comment on above: Order Comment: Speci men Type: URINE SPECIMENOrdering Facility: [facility] [place] Address: [address] [place] [address] Performed By: #### 2 4356-8 ####[facility] LABCLIA [id number] [address] [place] [address] [place] Ketones Ql (U) Negative Normal Negative [facility] Comment on above: Order Comment: Speci men Type: URINE SPECIMENOrdering Facility: [facility] [place] Address: [address] [place] [address] Performed By: #### 2 4356-8 ####[facility] LABCLIA [id number] [place] [address] [place] Leukocyte esterase Test strip Ql (U) 2+ Abnormal Negative [facility] Comment on above: Order Comment: Speci men Type: URINE SPECIMENOrdering Facility: [facility] [place] Address: [address] [place] [address] Performed By: #### 2 4356-8 ####[facility] LABCLIA [id number] [place] [address] [place] Nitrite Ql (U) Positive Abnormal Negative [facility] Comment on above: Order Comment: Speci men Type: URINE SPECIMENOrdering Facility: [facility] [place] Address: [address] [place] [address] Performed By: #### 2 4356-8 ####[facility] LABCLIA [id number] [place] [address] [place] pH (U) 6.5 [pH] Normal 5.0-8.0 [facility] Comment on above: Order Comment: Speci men Type: URINE SPECIMENOrdering Facility: [facility] [place] Address: [address] [place] [address] Performed By: #### 2 4356-8 ####[facility] LABCLIA [id number] [place] [address] [place] Protein (U) [Mass/Vol] Negative Normal Negative [facility] Comment on above: Order Comment: Speci men Type: URINE SPECIMENOrdering Facility: [facility] [place] Address: [address] [place] [address] Performed By: #### 2 4356-8 ####[facility] LABCLIA [id number] [place] [address] [place] RBC LM.HPF (Urine sed) [#/Area] 0-2 /HPF Normal 0-2 /HPF [facility] Comment on above: Order Comment: Speci men Type: URINE SPECIMENOrdering Facility: [facility] [place] Address: [address] [place] [address] Performed By: #### 2 4356-8 ####[facility] LABIA [id number] [place] [address] [place] Specific gravity (U) [Rel density] 1.010 Normal 1.005-1.030 [facility] Comment on above: Order Comment: Speci men Type: URINE SPECIMENOrdering Facility: [facility] [place] Address: [address] [place] [address] Performed By: #### 2 4356-8 ####[facility] [id number] [place] [address] [place] Urobilinogen Ql (U) 0.2 EU/dL Normal 0.2-1.0 EU/dL [facility] Comment on above: Order Comment: Speci men Type: URINE SPECIMENOrdering Facility: [facility] [place] Address: [address] [place] [address] Performed By: #### 2 4356-8 ####[facility] [id number] [place] [address] [place] WBC LM.HPF (Urine sed) [#/Area] 11-20 /HPF Abnormal 0-5 /HPF [facility] Comment on above: Order Comment: Speci men Type: URINE SPECIMENOrdering Facility: [facility] [place] Address: [address] [place] [address] Performed By: #### 2 4356-8 ####[facility] [id number] [place] [address] [place] CBC W Auto Differential pane l (Bld)on 02-06-2025 Basophils (Bld) [#/Vol] 0.05 10*3/uL [facility] Basophils/100 WBC (Bld) 0.8 % C [facility] Differential cell count method Nom (Bld) Auto [facility] Eosinophils (Bld) [#/Vol] 0.12 10*3/uL [facility] Eosinophils/100 WBC (Bld) 1.9 % [facility] Erythrocyte distribution width (RBC) [Ratio] 18.8 % High 11.5 - 15.0 % [facility] Hematocrit (Bld) [Volume fraction] 30.5 % Low 36.0 - 46.0 % [facility] Hemoglobin (Bld) [Mass/Vol] 8.7 g/dL Low 11.5 - 15.5 g/dL [facility] Immature granulocytes (Bld) [#/Vol] NINF [facility] Immature granulocytes/100 WBC (Bld) 0.3 % [facility] Interpretation and review of laboratory results Abnormal [facility] Lymphocytes (Bld) [#/Vol] 1.01 10*3/uL [facility] Lymphocytes/100 WBC (Bld) 16.2 % [facility] MCH (RBC) [Entitic mass] 22.8 pg Low 26.0 - 34.0 pg [facility] MCHC (RBC) [Mass/Vol] 28.5 g/dL Low 30.5 - 36.0 g/dL [facility] MCV (RBC) [Entitic vol] 79.8 fL Low 80.0 - 100.0 fL [facility] Monocytes (Bld) [#/Vol] 0.78 10*3/uL [facility] Monocytes/100 WBC (Bld) 12.5 % C [facility] Neutrophils (Bld) [#/Vol] 4.24 10*3/uL [facility] Neutrophils/100 WBC (Bld) 68.3 % [facility] Nucleated RBC (Bld) [#/Vol] NINF [facility] Nucleated RBC/100 WBC (Bld) [Ratio] 0 % /100 WBC [facility] Platelet mean volume (Bld) [Entitic vol] 10.5 fL 9.0 - 12.7 fL [facility] Platelets (Bld) [#/Vol] 318 10*3/uL [facility] RBC (Bld) [#/Vol] 3.82 10*6/uL Low 3.90 - 5.2 0 m/uL [facility] WBC (Bld) [#/Vol] 6.22 10*3/uL [facility] Basophils (Bld) [#/Vol] 0.05 10*3/uL Normal <0.11 [facility] Comment on above: Order Comment: Speci men Type: BLOOD SPECIMENOrdering Facility: [facility] [place] Address: [address] [place] [address] Performed By: #### 5 7021-8 ####[facility] LABCLIA [id number] [place] [address] [place] Basophils/100 WBC (Bld) 0.8 % Normal [facility] Comment on above: Order Comment: Speci men Type: BLOOD SPECIMENOrdering Facility: [facility] [place] Address: [address] [place] [address] Performed By: #### 5 7021-8 ####[facility] LABCLIA [id number] [address] [place] Differential cell count method Nom (Bld) Auto Normal [facility] Comment on above: Order Comment: Speci men Type: BLOOD SPECIMENOrdering Facility: [facility] [place] Address: [address] [place] [address] Performed By: #### 5 7021-8 ####[facility] LABCLIA [id number] [place] [address] [place] Eosinophils (Bld) [#/Vol] 0.12 10*3/uL Normal <0.46 [facility] Comment on above: Order Comment: Speci men Type: BLOOD SPECIMENOrdering Facility: [facility] [place] Address: [address] [place] [address] Performed By: #### 5 7021-8 ####[facility] LABCLIA [id number] [address] [place] Eosinophils/100 WBC (Bld) 1.9 % Normal [facility] Comment on above: Order Comment: Speci men Type: BLOOD SPECIMENOrdering Facility: [facility] [place] Address: [address] [place] [address] Performed By: #### 5 7021-8 ####[facility] LABCLIA [id number] [place] [address] [place] Erythrocyte distribution width (RBC) [Ratio] 18.8 % High 11.5-15.0 [facility] Comment on above: Order Comment: Speci men Type: BLOOD SPECIMENOrdering Facility: [facility] [place] Address: [address] [place] [address] Performed By: #### 5 7021-8 ####[facility] LABIA [id number] [place] [address] [place] Hematocrit (Bld) [Volume fraction] 30.5 % Low 36.0-46.0 [facility] Comment on above: Order Comment: Speci men Type: BLOOD SPECIMENOrdering Facility: [facility] [place] Address: [address] [place] [address] Performed By: #### 5 7021-8 ####[facility] LABIA [id number] [place] [address] [place] Hemoglobin (Bld) [Mass/Vol] 8.7 g/dL Low 11.5-15.5 [facility] Comment on above: Order Comment: Speci men Type: BLOOD SPECIMENOrdering Facility: [facility] [place] Address: [address] [place] [address] Performed By: #### 5 7021-8 ####[facility] LABIA [id number] [place] [address] [place] Immature granulocytes (Bld) [#/Vol] 10*3/uL Normal <0.10 [facility] Comment on above: Order Comment: Speci men Type: BLOOD SPECIMENOrdering Facility: [facility] [place] Address: [address] [place] [address] Performed By: #### 5 7021-8 ####[facility] LABIA [id number] [place] [address] [place] Immature granulocytes/100 WBC (Bld) 0.3 % Normal [facility] Comment on above: Order Comment: Speci men Type: BLOOD SPECIMENOrdering Facility: [facility] [place] Address: [address] [place] [address] Performed By: #### 5 7021-8 ####[facility] LABCLIA [id number] [place] [address] [place] Lymphocytes (Bld) [#/Vol] 1.01 10*3/uL Normal 1.00-4.00 [facility] Comment on above: Order Comment: Speci men Type: BLOOD SPECIMENOrdering Facility: [facility] [place] Address: [address] [place] [address] Performed By: #### 5 7021-8 ####[facility] LABCLIA [id number] [place] [address] [place] Lymphocytes/100 WBC (Bld) 16.2 % Normal [facility] Comment on above: Order Comment: Speci men Type: BLOOD SPECIMENOrdering Facility: [facility] [place] Address: [address] [place] [address] Performed By: #### 5 7021-8 ####[facility] LABCLIA [id number] [place] [id number] [place] MCH (RBC) [Entitic mass] 22.8 pg Low 26.0-34.0 [facility] Comment on above: Order Comment: Speci men Type: BLOOD SPECIMENOrdering Facility: [facility] [place] Address: [address] [place] [address] Performed By: #### 5 7021-8 ####[facility] LABCLIA [id number] [place] [id number] [place] MCHC (RBC) [Mass/Vol] 28.5 g/dL Low 30.5-36.0 [facility] Comment on above: Order Comment: Speci men Type: BLOOD SPECIMENOrdering Facility: [facility] [place] Address: [address] [place] [address] Performed By: #### 5 7021-8 ####[facility] LABCLIA [id number] [place] [address] [place] MCV (RBC) [Entitic vol] 79.8 fL Low 80.0-100.0 C [facility] Comment on above: Order Comment: Speci men Type: BLOOD SPECIMENOrdering Facility: [facility] [place] Address: [address] [place] [address] Performed By: #### 5 7021-8 ####[facility] LABCLIA [id number] [place] [address] [place] Monocytes (Bld) [#/Vol] 0.78 10*3/uL Normal <0.87 [facility] Comment on above: Order Comment: Speci men Type: BLOOD SPECIMENOrdering Facility: [facility] [place] Address: [address] [place] [address] Performed By: #### 5 7021-8 ####[facility] LABCLIA [id number] [place] [address] [place] Monocytes/100 WBC (Bld) 12.5 % Normal C [facility] Comment on above: Order Comment: Speci men Type: BLOOD SPECIMENOrdering Facility: [facility] [place] Address: [address] [place] [address] Performed By: #### 5 7021-8 ####[facility] LABCLIA [id number] [place] [address] [place] Neutrophils (Bld) [#/Vol] 4.24 10*3/uL Normal 1.45-7.50 [facility] Comment on above: Order Comment: Speci men Type: BLOOD SPECIMENOrdering Facility: [facility] [place] Address: [address] [place] [address] Performed By: #### 5 7021-8 ####[facility] LABCLIA [id number] [place] [id number] [place] Neutrophils/100 WBC (Bld) 68.3 % Normal [facility] Comment on above: Order Comment: Speci men Type: BLOOD SPECIMENOrdering Facility: [facility] [place] Address: [address] [place] [address] Performed By: #### 5 7021-8 ####[facility] LABCLIA [id number] [place] [address] [place] Nucleated RBC (Bld) [#/Vol] 10*3/uL Normal <0.01 [facility] Comment on above: Order Comment: Speci men Type: BLOOD SPECIMENOrdering Facility: [facility] [place] Address: [address] [place] [address] Performed By: #### 5 7021-8 ####[facility] LABCLIA [id number] [place] [address] [place] Nucleated RBC/100 WBC (Bld) [Ratio] 0.0 /100 WBC Normal [facility] Comment on above: Order Comment: Speci men Type: BLOOD SPECIMENOrdering Facility: [facility] [place] Address: [address] [place] [address] Performed By: #### 5 7021-8 ####[facility] LABIA [id number] [place] [address] [place] Platelet mean volume (Bld) [Entitic vol] 10.5 fL Normal 9.0-12.7 [facility] Comment on above: Order Comment: Speci men Type: BLOOD SPECIMENOrdering Facility: [facility] [place] Address: [address] [place] [address] Performed By: #### 5 7021-8 ####[facility] LABCLIA [id number] [place] [address] [place] Platelets (Bld) [#/Vol] 318 10*3/uL Normal 150-400 [facility] Comment on above: Order Comment: Speci men Type: BLOOD SPECIMENOrdering Facility: [facility] [place] Address: [address] [place] [address] Performed By: #### 5 7021-8 ####[facility] LABCLIA [id number] [place] [address] [place] RBC (Bld) [#/Vol] 3.82 10*6/uL Low 3.90-5.20 [facility] Comment on above: Order Comment: Speci men Type: BLOOD SPECIMENOrdering Facility: [facility] [place] Address: [address] [place] [address] Performed By: #### 5 7021-8 ####[facility] LABCLIA [id number] [place] [address] [place] WBC (Bld) [#/Vol] 6.22 10*3/uL Normal 3.70-11.00 [facility] Comment on above: Order Comment: Speci men Type: BLOOD SPECIMENOrdering Facility: [facility] [place] Address: [address] [place] [address] Performed By: #### 5 7021-8 ####[facility] LABIA [id number] [address] [place] CNOVon 02-06-2025 CNOV Office Visit (FAMPWS ) ANTONIO GUPTA ([id number]) 1940 F Date Time Provider Department 02/06/25 [...] has not reported these symptoms to her combat information center officer, Dr. Bueno, or his automotive parts counter assistant, whom she usually sees. She has [...] intraventricular block - Advised patient to contact combat information center officer Dr. Bueno's office today to report symptoms [...] CMP today, continue with Losartan [facility] APRN.HEALTH POLICY NURSE RTO in 1 month. I spent a total of 51 minutes on the date of the service which included preparing to see the patient, aegn-re-rsri patient care, completing clinical documentation, obtaining and/or reviewing separately obtained history, performing a medically appropriate examination, counseling and educating the patient/family/caregi harish, and ordering medications, tests, or procedures. This note was partly generated using [email or web address] (more content not included)... Normal [facility] Comprehensive metabolic 2000 panelon 02-06-2025 Albumin [Mass/Vol] 4.0 g/dL Normal 3.9-4.9 [facility] Comment on above: Order Comment: Speci men Type: BLOOD SPECIMENOrdering Facility: [facility] [place] Address: [address] [place] [address] Performed By: #### 2 4323-8, 61709-2, LIPNF, 3016-3 ####[facility] LABIA [id number] [place] [address] [place] ALP [Catalytic activity/Vol] 132 U/L High 34-123 [facility] Comment on above: Order Comment: Speci men Type: BLOOD SPECIMENOrdering Facility: [facility] [place] Address: [address] [place] [address] Performed By: #### 2 4323-8, 28636-3, LIPNF, 3016-3 ####[facility] LABIA [id number] [place] [address] [place] ALT [Catalytic activity/Vol] 15 U/L Normal 7-38 [facility] Comment on above: Order Comment: Speci men Type: BLOOD SPECIMENOrdering Facility: [facility] [place] Address: [address] [place] [address] Performed By: #### 2 4323-8, 70226-7, LIPNF, 3016-3 ####[facility] LABIA [id number] [place] [address] [place] Anion gap [Moles/Vol] 11 mmol/L Normal 8-15 [facility] Comment on above: Order Comment: Speci men Type: BLOOD SPECIMENOrdering Facility: [facility] [place] Address: [address] [place] [address] Performed By: #### 2 4323-8, 81256-3, LIPNF, 3016-3 ####[facility] LABIA [id number] [place] [address] [place] AST [Catalytic activity/Vol] 22 U/L Normal 13-35 [facility] Comment on above: Order Comment: Speci men Type: BLOOD SPECIMENOrdering Facility: [facility] [place] Address: [address] [place] [address] Performed By: #### 2 4323-8, 30822-2, LIPNF, 3016-3 ####[facility] LABCLIA [id number] [address] [address] [place] Bilirubin [Mass/Vol] 0.6 mg/dL Normal 0.2-1.3 [facility] Comment on above: Order Comment: Speci men Type: BLOOD SPECIMENOrdering Facility: [facility] [place] Address: [address] [place] [address] Performed By: #### 2 4323-8, 42739-9, LIPNF, 3016-3 ####[facility] LABCLIA [id number] [place] [address] [place] Calcium [Mass/Vol] 9.4 mg/dL Normal 8.5-10.2 [facility] Comment on above: Order Comment: Speci men Type: BLOOD SPECIMENOrdering Facility: [facility] [place] Address: [address] [place] [address] Performed By: #### 2 4323-8, 18500-2, LIPNF, 3016-3 ####[facility] LABIA [id number] [place] [address] [place] Chloride [Moles/Vol] 101 mmol/L Normal 98-107 [facility] Comment on above: Order Comment: Speci men Type: BLOOD SPECIMENOrdering Facility: [facility] [place] Address: [address] [place] [address] Performed By: #### 2 4323-8, 81725-7, LIPNF, 3016-3 ####[facility] LABIA [id number] [place] [address] [place] CO2 [Moles/Vol] 21 mmol/L Low 22-30 [facility] Comment on above: Order Comment: Speci men Type: BLOOD SPECIMENOrdering Facility: [facility] [place] Address: [address] [place], [place] [address] Performed By: #### 2 4323-8, 08087-8, LIPEDGAR, 3016-3 ####[facility] LABCLIA [id number] [place] [address] [place] Creatinine [Mass/Vol] 1.34 mg/dL High 0.58-0.96 [facility] Comment on above: Order Comment: Speci men Type: BLOOD SPECIMENOrdering Facility: [facility] [place] Address: [address] [place] [address] Performed By: #### 2 4323-8, 40976-7, LIPEDGAR, 3016-3 ####[facility] LABIA [id number] [place] [address] [place] eGFRcr SerPlBld CKD-EPI 2020 39 mL/min/1.73m??? Low >=60 [facility] Comment on above: Order Comment: [facility] Type: BLOOD SPECIMENOrdering Facility: [facility] [place] Address: [address] [place] [address] Result Comment: Martha mated Glomerular Filtration Rate [...] actual GFR. Performed By: #### 2 4323-8, 31292-8, LIPEDGAR, 3016-3 ####[facility] LABCLIA [id number] [address] [address] [place] Glucose [Mass/Vol] 102 mg/dL High 74-99 [facility] Comment on above: Order Comment: Speci men Type: BLOOD SPECIMENOrdering Facility: [facility] [place] Address: [address] [place] [address] Result Comment: The [place] Diabetes Association (ADA) provides guidance for cutoff [...] Standards of Medical Care in Diabetes 2016, [place] [employer]. Diabetes Care. 2016.39(Suppl 1). Performed By: #### 2 4323-8, 91741-1, LIPNF, 3016-3 ####[facility] LABIA [id number] [place] [address] [place] Potassium [Moles/Vol] 4.3 mmol/L Normal 3.7-5.1 [facility] Comment on above: Order Comment: Speci men Type: BLOOD SPECIMENOrdering Facility: [facility] [place] Address: [address] [place] [address] Performed By: #### 2 4323-8, 80088-3, LIPNF, 6-3 ####[facility] LABIA [id number] [place] [address] [place] Protein [Mass/Vol] 8.7 g/dL High 6.3-8.0 [facility] Comment on above: Order Comment: Speci men Type: BLOOD SPECIMENOrdering Facility: [facility] [place] Address: [address] [place] [address] Performed By: #### 2 4323-8, 68282-9, LIPNF, 3016-3 ####[facility] LABIA [id number] [place] [address] [place] Sodium [Moles/Vol] 133 mmol/L Low 136-144 [facility] Comment on above: Order Comment: Speci men Type: BLOOD SPECIMENOrdering Facility: [facility] [place] Address: [address] [place] [address] Performed By: #### 2 4323-8, 91888-0, LIPNF, 3016-3 ####[facility] LABCLIA [id number] [address] [address] [place] Urea nitrogen [Mass/Vol] 21 mg/dL Normal 7-21 [facility] Comment on above: Order Comment: Speci men Type: BLOOD SPECIMENOrdering Facility: [facility] [place] Address: [address] [place] [address] Performed By: #### 2 4323-8, 17893-4, LIZETT, 3016-3 ####[facility] LABIA [id number] [address] [address] [place] HbA1c (Bld)on 02-06-2025 Average glucose Estimated from glycated hemoglobin (Bld) [Mass/Vol] 148 mg/dL Normal [facility] Comment on above: Order Comment: Speci men Type: BLOOD SPECIMENOrdering Facility: [facility] [place] Address: [address] [place] [address] Result Comment: eAG: (Estimated average glucose) is a calculated value from HgbA1c and is sales and service representative of the average blood glucose level in the last 2-3 month period. Performed By: #### 5 5454-3 ####[facility] LABIA [id number] [address] [address] [place] HbA1c (Bld) [Mass fraction] 6.8 % High 4.3-5.6 [facility] Comment on above: Order Comment: Speci men Type: BLOOD SPECIMENOrdering Facility: [facility] [place] Address: [address] [place] [address] Result Comment: Amer [place] Diabetes Association guidelines indicate that patients with HgbA1c in the range 5.7-6.4% are at increased risk for development of diabetes, and intervention by lifestyle modification may be beneficial. HgbA1c greater or equal to 6.5% is considered diagnostic of diabetes. Performed By: #### 5 5454-3 ####[facility] LABIA [id number] [address] [address] [place] LIPID PANEL, NONFASTINGon 07 -28-2025 Cholesterol [Mass/Vol] 95 mg/dL Normal <200 [facility] Comment on above: Order Comment: Speci men Type: BLOOD SPECIMENOrdering Facility: [facility] [place] Address: [address] [place] [address] Result Comment: <200 mg/dL, Desirable 200-239 mg/dL, Borderline high >239 mg/dL, High Performed By: #### 2 4323-8, 89940-4, LIPNF, 3016-3 ####[facility] LABCLIA [id number] [address] OF [place] HDL CHOLESTEROL, NF 32 mg/dL Low >39 [facility] Comment on above: Order Comment: Speci men Type: BLOOD SPECIMENOrdering Facility: [facility] [place] Address: [address] [place] [address] Result Comment: 40-5 9 mg/dL, Acceptable >59 mg/dL, High: Negative risk factor for coronary heart disease <40 mg/dL, Low: Positive risk factor for coronary heart disease Performed By: #### 2 4323-8, 99126-4, LIPNF, 3016-3 ####[facility] LABCLIA [id number] [address] LDL CHOLESTEROL CALCULATED, NF 50 mg/dL Normal <100 [facility] Comment on above: Order Comment: Speci men Type: BLOOD SPECIMENOrdering Facility: [facility] [place] Address: [address] [place] [address] Result Comment: <100 mg/dL, Optimal 100-129 mg/dL, Near optimal/above optimal 130-159 mg/dL, Borderline high 160-189 mg/dL, High >189 mg/dL, Very high Secondary prevention optimal LDL Cholesterol levels are recommended to be <70 mg/dL LDL cholesterol is calculated using the Singh-NIH equation. Performed By: #### 2 4323-8, 88618-3, LIPNF, 3016-3 ####[facility] LABCLIA [id number] [place] [address] [place] LDL/HDL RATIO, NF 1.56 mg/dL Normal <2.54 [facility] Comment on above: Order Comment: Specsimon lorenzo Type: BLOOD SPECIMENOrdering Facility: [facility] [place] Address: [address] [place] [address] Result Comment: Refe drewce: 1. National Cholesterol Education Program ATP III Guideline At-A-Glance Quick Desk Reference: National Heart, Lung, and Blood [place]. National Institutes of Health. 2001: NIH Publication No. 01-3305. 2. An International Atherosclerosis Society position paper: global recommendations for the management of dyslipidemia: executive summary, Atherosclerosis. 2014: 232(2):410-413. Performed By: #### 2 4323-8, 33660-4, LIPNF, 3016-3 ####[facility] LABCLIA [id number] [address] [place] NON HDL CHOL, NF 63 mg/dL Normal <130 [facility] Comment on above: Order Comment: Noheliasimon lorenzo Type: BLOOD SPECIMENOrdering Facility: [facility] [place] Address: [address] [place] [address] Result Comment: <130 mg/dL, Optimal 130-159 mg/dL, Near optimal/above optimal 160-189 mg/dL, Borderline high 190-219 mg/dL, High >219 mg/dL, Very high Secondary prevention optimal non HDL Cholesterol levels are recommended to be <100 mg/dL Performed By: #### 2 4323-8, 01404-1, LIPNF, 3016-3 ####[facility] LABCLIA [id number] [address] OF [place] T CHOL/HDL RATIO NF 2.97 mg/dL Normal <5.10 [facility] Comment on above: Order Comment: Demetrio lorenzo Type: BLOOD SPECIMENOrdering Facility: [facility] [place] Address: [address] [place] [address] Performed By: #### 2 4323-8, 43408-2, LIPNF, 3016-3 ####[facility] LABCLIA [id number] [place] [address] [place] TRIGLYCERIDES, NF 57 mg/dL Normal <150 [facility] Comment on above: Order Comment: Speci men Type: BLOOD SPECIMENOrdering Facility: [facility] [place] Address: [address] [place] [address] Result Comment: <150 mg/dL, Normal 150-199 mg/dL, Borderline high 200-499 mg/dL, High >499 mg/dL, Very high Performed By: #### 2 4323-8, 11576-4, LIPNF, 3016-3 ####[facility] LABCLIA [id number] [place] [address] [place] VLDL CHOLESTEROL, NF 8 mg/dL Normal <30 [facility] Comment on above: Order Comment: Speci men Type: BLOOD SPECIMENOrdering Facility: [facility] [place] Address: [address] [place] [address] Performed By: #### 2 4323-8, 78101-6, LIPNF, 3016-3 ####[facility] LABCLIA [id number] [address] [place] NT-proBNP [facility]06 Natriuretic peptide.B prohormone N-Terminal [Mass/Vol] 1379 pg/mL High <450 [facility] Comment on above: Order Comment: Speci men Type: BLOOD SPECIMENOrdering Facility: [facility] [place] Address: [address] [place] [address] Performed By: #### 2 4323-8, 45286-7, LIPNF, 3016-3 ####[facility] LABIA [id number] [place] [address] [place] TSH SerPl-aCncon 02-06-2025 TSH Qn 2.240 m[IU]/L Normal 0.270-4.200 [facility] Comment on above: Order Comment: Speci men Type: BLOOD SPECIMENOrdering Facility: [facility] [place] Address: [address] [place] [address] Performed By: #### 2 4323-8, 45969-9, LIPNF, 3016-3 ####[facility] LABCLIA [id number] [place] [address] [place] XR CHEST 2V [...] of T12. IMPRESSION: No acute radiographic abnormality. Coating Manager: ARCHIE Transcribe Date/Time: Feb 06 2025 1:04P Dictated by : CINTHYA PERAZA MD This examination was interpreted and the report reviewed and electronically signed by: CINTHYA PERAZA MD on Feb 06 2025 1:06PM EST [id number] N Normal [facility] XR Chest PA and Lateralon IMPRESSION: No acute radiographic abnormality. Coating Manager: ARCHIE Transcribe Date/Time: Feb 06 2025 1:04P [...] compression of T12. DIVISION OF RADIOLOGY Provider, [facility] - 02/06/2025 * * *Final Report* * [...] T12. IMPRESSION IMPRESSION: No acute radiographic abnormality. Coating Manager: ARCHIE Transcribe Date/Time: Feb 06 2025 1:04P Dictated by : CINTHYA PERAZA MD This examination was interpreted and the report reviewed and electronically signed by: CINTHYA PERAZA MD on Feb 06 2025 1:06PM [facility] Radiology Study observation (narrative) Osmar garcia [facility] XR Chest PA and LateralOrder ed By: Ccf Provider on 02-06-2025 [facility] Cardiology Visit Reporton Cardiology Visit Report [facility] [address] [place] [address] OFFICE VISIT Date of Service: 11/18/24 MR#: [id number] Acct: [id number] Name: ANTONIO GUPTA Rep #: [id number] : 1940 Provider: LUIS FELIPE Bills Age/Sex: [...] 89 Intake Visit Reasons: 6 M FU Signal Operator Required: No Is patient in pain?: No [...] no idea what medications she is taking [facility] Medical History Coronary artery disease Iron deficiency anemia History of non-ST elevation myocardial infarction (NSTEMI) (2013) Longstanding persistent atrial fibrillation Essential (primary) hypertension Anxiety Hypothyroidism Hyperlipidemia Secondary pulmonary arterial hypertension Atherosclerosis of coronary artery of nulato heart without angina pectoris Paroxysmal atrial fibrillation [...] patient quit smokin (more content not included)... [facility] CNOVon 08-12-2024 OV Office Visit (FAMPWS ) JULIÁN KEENEAN ([id number]) 1940 F Date Time Provider Department 08/12/24 1:00 PM [facility] FAMPWS During your visit today, we recorded the following information about you: Pulse Respiration Blood pressure Weight 80/minute 18/minute 128/86 85.7 kg [facility] APRN.HEALTH POLICY NURSE 08/12/2024 1:27 PM Signed Antonio Gupta is [...] - Personalized prevention plan provided [facility] APRN.HEALTH POLICY NURSE Additional Concerns The following concerns were also [...] >=60 mL/min/1.73 (more content not included)... Normal [facility] CBC panel Auto (Bld)on 08-08 Erythrocyte distribution width (RBC) [Ratio] 15.6 % High 11.5-15.0 [facility] Comment on above: Order Comment: Speci men Type: BLOOD SPECIMENOrdering Facility: [facility] [place] Address: [address] [place] [address] Performed By: #### 5 8410-2 ####[facility] LABCLIA [id number] [place] [address] [place] Hematocrit (Bld) [Volume fraction] 38.7 % Normal 36.0-46.0 [facility] Comment on above: Order Comment: Speci men Type: BLOOD SPECIMENOrdering Facility: [facility] [place] Address: [address] [place] [address] Performed By: #### 5 8410-2 ####[facility] LABCLIA [id number] [place] [address] [place] Hemoglobin (Bld) [Mass/Vol] 11.8 g/dL Normal 11.5-15.5 [facility] Comment on above: Order Comment: Speci men Type: BLOOD SPECIMENOrdering Facility: [facility] [place] Address: [address] [place] [address] Performed By: #### 5 8410-2 ####[facility] LABIA [id number] [place] [address] [place] MCH (RBC) [Entitic mass] 28.6 pg Normal 26.0-34.0 [facility] Comment on above: Order Comment: Speci men Type: BLOOD SPECIMENOrdering Facility: [facility] [place] Address: [address] [place] [address] Performed By: #### 5 8410-2 ####[facility] LABCLIA [id number] [place] [address] [place] MCHC (RBC) [Mass/Vol] 30.5 g/dL Normal 30.5-36.0 [facility] Comment on above: Order Comment: Speci men Type: BLOOD SPECIMENOrdering Facility: [facility] [place] Address: [address] [place] [address] Performed By: #### 5 8410-2 ####[facility] LABIA [id number] [place] [address] [place] MCV (RBC) [Entitic vol] 93.9 fL Normal 80.0-100.0 C [facility] Comment on above: Order Comment: Speci men Type: BLOOD SPECIMENOrdering Facility: [facility] [place] Address: [address] [place] [address] Performed By: #### 5 8410-2 ####[facility] [id number] [place] [address] [place] Nucleated RBC (Bld) [#/Vol] 10*3/uL Normal <0.01 [facility] Comment on above: Order Comment: Speci men Type: BLOOD SPECIMENOrdering Facility: [facility] [place] Address: [address] [place] [address] Performed By: #### 5 8410-2 ####[facility] [id number] [place] [address] [place] Platelet mean volume (Bld) [Entitic vol] 10.5 fL Normal 9.0-12.7 [facility] Comment on above: Order Comment: Speci men Type: BLOOD SPECIMENOrdering Facility: [facility] [place] Address: [address] [place] [address] Performed By: #### 5 8410-2 ####[facility] LABIA [id number] [place] [address] [place] Platelets (Bld) [#/Vol] 321 10*3/uL Normal 150-400 [facility] Comment on above: Order Comment: Speci men Type: BLOOD SPECIMENOrdering Facility: [facility] [place] Address: [address] [place] [address] Performed By: #### 5 8410-2 ####[facility] LABCLIA [id number] [address] [address] [place] RBC (Bld) [#/Vol] 4.12 10*6/uL Normal 3.90-5.20 [facility] Comment on above: Order Comment: Speci men Type: BLOOD SPECIMENOrdering Facility: [facility] [place] Address: [address] [place] [address] Performed By: #### 5 8410-2 ####[facility] LABCLIA [id number] [address] [address] [place] WBC (Bld) [#/Vol] 7.25 10*3/uL Normal 3.70-11.00 [facility] Comment on above: Order Comment: Speci men Type: BLOOD SPECIMENOrdering Facility: [facility] [place] Address: [address] [place] [address] Performed By: #### 5 8410-2 ####[facility] LABCLIA [id number] [place] [address] [place] Comprehensive metabolic 2000 panelon 08-08-2024 Albumin [Mass/Vol] 4.0 g/dL Normal 3.9-4.9 [facility] Comment on above: Order Comment: Speci men Type: BLOOD SPECIMENOrdering Facility: [facility] [place] Address: [address] [place] [address] Performed By: #### 2 4323-8, 37810-7, 3016-3 ####[facility] LABCLIA [id number] [place] [id number] [place] ALP [Catalytic activity/Vol] 150 U/L High 34-123 [facility] Comment on above: Order Comment: Speci men Type: BLOOD SPECIMENOrdering Facility: [facility] [place] Address: [address] [place] [address] Performed By: #### 2 4323-8, 06823-1, 3016-3 ####[facility] LABCLIA [id number] [address] [address] [place] ALT [Catalytic activity/Vol] 11 U/L Normal 7-38 [facility] Comment on above: Order Comment: Speci men Type: BLOOD SPECIMENOrdering Facility: [facility] [place] Address: [address] [place] [address] Performed By: #### 2 4323-8, 42236-1, 3016-3 ####[facility] LABCLIA [id number] [place] [id number] [place] Anion gap [Moles/Vol] 13 mmol/L Normal 8-15 [facility] Comment on above: Order Comment: Speci men Type: BLOOD SPECIMENOrdering Facility: [facility] [place] Address: [address] [place] [address] Performed By: #### 2 4323-8, 41919-2, 6-3 ####[facility] LABCLIA [id number] [place] [address] [place] AST [Catalytic activity/Vol] 18 U/L Normal 13-35 [facility] Comment on above: Order Comment: Speci men Type: BLOOD SPECIMENOrdering Facility: [facility] [place] Address: [address] [place] [address] Performed By: #### 2 4323-8, 89884-4, 6-3 ####[facility] LABCLIA [id number] [place] [id number] [place] Bilirubin [Mass/Vol] 0.6 mg/dL Normal 0.2-1.3 [facility] Comment on above: Order Comment: Speci men Type: BLOOD SPECIMENOrdering Facility: [facility] [place] Address: [address] [place] [address] Performed By: #### 2 4323-8, 10330-8, 3016-3 ####[facility] LABCLIA [id number] [place] [id number] [place] Calcium [Mass/Vol] 9.6 mg/dL Normal 8.5-10.2 [facility] Comment on above: Order Comment: Speci men Type: BLOOD SPECIMENOrdering Facility: [facility] [place] Address: [address] [place] [address] Performed By: #### 2 4323-8, 15953-0, 3016-3 ####[facility] LABCLIA [id number] [place] [address] [place] Chloride [Moles/Vol] 95 mmol/L Low 98-107 [facility] Comment on above: Order Comment: Speci men Type: BLOOD SPECIMENOrdering Facility: [facility] [place] Address: [address] [place] [address] Performed By: #### 2 4323-8, 87807-6, 3016-3 ####[facility] LABCLIA [id number] [place] [address] [place] CO2 [Moles/Vol] 24 mmol/L Normal 22-30 [facility] Comment on above: Order Comment: Speci men Type: BLOOD SPECIMENOrdering Facility: [facility] [place] Address: [address] [place] [address] Performed By: #### 2 4323-8, 67648-2, 6-3 ####[facility] LABCLIA [id number] [place] [address] [place] Creatinine [Mass/Vol] 1.20 mg/dL High 0.58-0.96 [facility] Comment on above: Order Comment: Speci men Type: BLOOD SPECIMENOrdering Facility: [facility] [place] Address: [address] [place] [address] Performed By: #### 2 4323-8, 66008-7, 3016-3 ####[facility] LABCLIA [id number] [place] [address] [place] Creatinine and Glomerular filtration rate.predicted panel (S/P/Bld) 44 mL/min/1.73m??? Low >=60 [facility] Comment on above: Order Comment: Demetrio lorenzo Type: BLOOD SPECIMENOrdering Facility: [facility] [place] Address: [address] [place] [address] Result Comment: Martha mated Glomerular Filtration Rate [...] actual GFR. Performed By: #### 2 4323-8, 59882-8, 6-3 ####[facility] LABIA [id number] [place] [address] [place] Glucose [Mass/Vol] 99 mg/dL Normal 74-99 [facility] Comment on above: Order Comment: Demetrio lorenzo Type: BLOOD SPECIMENOrdering Facility: [facility] [place] Address: [address] [place] [address] Result Comment: The [place] Diabetes Association (ADA) provides guidance for cutoff [...] Standards of Medical Care in Diabetes 2016, [place] [employer]. Diabetes Care. 2016.39(Suppl 1). Performed By: #### 2 4323-8, 40413-7, 6-3 ####[facility] LABIA [id number] [address] [address] [place] Potassium [Moles/Vol] 4.0 mmol/L Normal 3.7-5.1 [facility] Comment on above: Order Comment: Speci men Type: BLOOD SPECIMENOrdering Facility: [facility] [place] Address: [address] [place] [address] Performed By: #### 2 4323-8, 75241-5, 3 ####[facility] LABCLIA [id number] [address] [address] [place] Protein [Mass/Vol] 8.4 g/dL High 6.3-8.0 [facility] Comment on above: Order Comment: Speci men Type: BLOOD SPECIMENOrdering Facility: [facility] [place] Address: [address] [place] [address] Performed By: #### 2 4323-8, 24792-6, 3015-09 ####[facility] LABCLIA [id number] [place] [id number] [place] Sodium [Moles/Vol] 132 mmol/L Low 136-144 [facility] Comment on above: Order Comment: Speci men Type: BLOOD SPECIMENOrdering Facility: [facility] [place] Address: [address] [place] [address] Performed By: #### 2 4323-8, 25033-7, 3 ####[facility] LABCLIA [id number] [place] [id number] [place] Urea nitrogen [Mass/Vol] 18 mg/dL Normal 7-21 [facility] Comment on above: Order Comment: Speci men Type: BLOOD SPECIMENOrdering Facility: [facility] [place] Address: [address] [place] [address] Performed By: #### 2 4323-8, 31558-5, 3 ####[facility] LABCLIA [id number] [address] [address] [place] HbA1c (Bld)on 08-08-2024 Average glucose Estimated from glycated hemoglobin (Bld) [Mass/Vol] 140 mg/dL Normal [facility] Comment on above: Order Comment: Speci men Type: BLOOD SPECIMENOrdering Facility: [facility] [place] Address: [address] [place] [address] Result Comment: eAG: (Estimated average glucose) is a calculated value from HgbA1c and is sales and service representative of the average blood glucose level in the last 2-3 month period. Performed By: #### 5 5454-3 ####[facility] LABCLIA [id number] [place] [address] [place] HbA1c (Bld) [Mass fraction] 6.5 % High 4.3-5.6 [facility] Comment on above: Order Comment: Speci men Type: BLOOD SPECIMENOrdering Facility: [facility] [place] Address: [address] [place] [address] Result Comment: Amer [place] Diabetes Association guidelines indicate that patients with HgbA1c in the range 5.7-6.4% are at increased risk for development of diabetes, and intervention by lifestyle modification may be beneficial. HgbA1c greater or equal to 6.5% is considered diagnostic of diabetes. Performed By: #### 5 5454-3 ####[facility] LABCLIA [id number] [place] [address] [place] Lipid 1996 panelon 5 Cholesterol [Mass/Vol] 140 mg/dL Normal <200 [facility] Comment on above: Order Comment: Speci men Type: BLOOD SPECIMENOrdering Facility: [facility] [place] Address: [address] [place] [address] Result Comment: <200 mg/dL, Desirable 200-239 mg/dL, Borderline high >239 mg/dL, High Performed By: #### 2 4323-8, 55610-9, 3016-3 ####[facility] LABCLIA [id number] [place] [address] [place] Cholesterol in HDL [Mass/Vol] 35 mg/dL Low >39 [facility] Comment on above: Order Comment: Speci men Type: BLOOD SPECIMENOrdering Facility: [facility] [place] Address: [address] [place] [address] Result Comment: 40-5 9 mg/dL, Acceptable >59 mg/dL, High: Negative risk factor for coronary heart disease <40 mg/dL, Low: Positive risk factor for coronary heart disease Performed By: #### 2 4323-8, 23845-2, 6-3 ####[facility] LABCLIA [id number] [address] [address] [place] Cholesterol in LDL [Mass/Vol] 81 mg/dL Normal <100 [facility] Comment on above: Order Comment: Speci men Type: BLOOD SPECIMENOrdering Facility: [facility] [place] Address: [address] [place] [address] Result Comment: <100 mg/dL, Optimal 100-129 mg/dL, Near optimal/above optimal 130-159 mg/dL, Borderline high 160-189 mg/dL, High >189 mg/dL, Very high Secondary prevention optimal LDL Cholesterol levels are recommended to be < 70 mg/dL Performed By: #### 2 4323-8, 56074-0, 3015-3 ####[facility] LABCLIA [id number] [address] [address] [place] Cholesterol in LDL/Cholesterol in HDL [Mass ratio] 2.31 {ratio} Normal <2.54 [facility] Comment on above: Order Comment: Speci men Type: BLOOD SPECIMENOrdering Facility: [facility] [place] Address: [address] [place] [address] Result Comment: Rivka moreno: 1. National Cholesterol Education Program ATP III Guideline At-A-Glance Quick Desk Reference: National Heart, Lung, and Blood [place]. National Institutes of Health. 2001: NIH Publication No. 01-3305. 2. An International Atherosclerosis Society position paper: global recommendations for the management of dyslipidemia: executive summary, Atherosclerosis. 2014: 232(2):410-413. Performed By: #### 2 4323-8, 51014-3, 3015-3 ####[facility] LABCLIA [id number] [address] [address] [place] Cholesterol in VLDL [Mass/Vol] 24 mg/dL Normal <30 [facility] Comment on above: Order Comment: Speci men Type: BLOOD SPECIMENOrdering Facility: [facility] [place] Address: [address] [place] [address] Performed By: #### 2 4323-8, 04117-2, 3015-3 ####[facility] LABCLIA [id number] [place] [address] [place] Cholesterol non HDL [Mass/Vol] 105 mg/dL Normal <130 [facility] Comment on above: Order Comment: Speci men Type: BLOOD SPECIMENOrdering Facility: [facility] [place] Address: [address] [place] [address] Result Comment: <130 mg/dL, Optimal 130-159 mg/dL, Near optimal/above optimal 160-189 mg/dL, Borderline high 190-219 mg/dL, High >219 mg/dL, Very high Secondary prevention optimal non HDL Cholesterol levels are recommended to be <100 mg/dL Performed By: #### 2 4323-8, 37015-0, 3015-3 ####[facility] LABCLIA [id number] [place] [address] [place] Cholesterol.total/Viola sterol in HDL [Mass ratio] 4.00 {ratio} Normal <5.10 [facility] Comment on above: Order Comment: Speci men Type: BLOOD SPECIMENOrdering Facility: [facility] [place] Address: [address] [place] [address] Performed By: #### 2 4323-8, 04946-1, 3 ####[facility] LABCLIA [id number] [place] [id number] [place] FASTING TIME 12 hrs Normal [facility] Comment on above: Order Comment: Speci men Type: BLOOD SPECIMENOrdering Facility: [facility] [place] Address: [address] [place] [address] Performed By: #### 2 4323-8, 83607-0, 3015-3 ####[facility] LABCLIA [id number] [place] [address] [place] Triglyceride [Mass/Vol] 120 mg/dL Normal <150 [facility] Comment on above: Order Comment: Speci men Type: BLOOD SPECIMENOrdering Facility: [facility] [place] Address: [address] [place] [address] Result Comment: <150 mg/dL, Normal 150-199 mg/dL, Borderline high 200-499 mg/dL, High >499 mg/dL, Very high Performed By: #### 2 4323-8, 38299-9, 3016-3 ####[facility] LABIA [id number] [place] [address] [place] TSH SerPl-aCncon 08-08-2024 TSH Qn 3.330 m[IU]/L Normal 0.270-4.200 [facility] Comment on above: Order Comment: Speci men Type: BLOOD SPECIMENOrdering Facility: [facility] [place] Address: [address] [place] [address] Performed By: #### 2 4323-8, 77256-3, 3016-3 ####[facility] [id number] [address] [place] CNPKassidy 05-24-2024 [facility] ANTONIO GUPT[facility] ([id number]) 1940 F Date Time Provider Department 05/24/24 VICTOR M ROCHA [facility] During your visit today, we recorded the following information about you: Kandi Woody MA 05/24/2024 1:22 PM Signed Type of letter/form/fax request - Overnight Pulse Ox order Form received from fax on 1 floor and placed on MD desk (Dr. Rocha) for completion. Completed form needs to be faxed to [facility] at [phone]. [facility] [place]CP sign order to complete an overnight pulse oximetry report on room air for pt. Route to [place] when form completed for processing Kandi Woody MA 05/24/2024 3:01 PM Signed Faxed. 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 Advised patient to call her combat information center officer to go over her meds from them [...] eyes twice daily. 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 Normal [facility] CNPNon 05-13-2024 CNPN Telephone ([facility]) ANTONIO GUPTA ([id number]) 1940 F Date Time Provider Department 05/13/24 [facility] During your visit today, we recorded the following information about you: Cara Herring MA 05/13/2024 2:33 PM Signed Type of form: Stop Anticoagulant prior to to pain management procedure. [facility]. Pt takes Xarelto daily, asking to be off two days prior to procedure. 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 Normal [facility] Pacemaker Checkon 04-18-2024 Pacemaker Check [facility] [address] [place], [place] [address] Pacemaker Check Date of Service: 04/18/24 110 MR#: [id number] Acct: [id number] Name: ANTONIO GUPTA Rep #: [id number] : 1940 From: Marni Waldron Age/Sex: 83/F Location: [facility] Status: Signed Billing Codes PM Device Codes: 95005 PM Dev Prog Eval, Dual Assessment and Plan Assessment and Plan (1) Paroxysmal atrial fibrillation: Status: Chronic Comment: AV node ablation 03/31/2016 (2) Presence of cardiac pacemaker: Status: Chronic Comment: PPM generator change on 04/11/2024. (3) Sick sinus syndrome: Status: Chronic 04/18/24 1106 Date Marni Florianigncabrera Signature: Date (if applicable) CC: Normal [facility] Protime w/INR Fingerstickon 04-12-2024 INR Coag (PPP) [Relative time] 1.7 {INR} Normal [facility] Comment on above: Result Comment: Crit ical Value > 4.0 Performed By: #### L 501.7970, L500.4050, L503.6620, L100.0100 #### [facility] [address] [place], [place], [address] Protime Coagsen 17.8 SEC High 11.7-14.[address] [facility] Comment on above: Performed By: #### L 501.4020, L500.4050, L503.6620, L100.0100 #### [facility] [address] [place], [address] TXT:Device Implant / Explant on 04-12-2024 TXT:Device Implant / Explant [facility] Services [address] [place] [address] TXT:Device Implant / Explant MR#: [id number] Acct: [id number] Name: ANTONIO GUPTA Rep #: [id number] : 1940 83 From: Vinny Root MD PCP: Dr. Victor M Rocha MD Status:DEP [facility] Patient: ANTONIO GUPTA Study Date: 04/11/2024 Performing: Vinny Root MD : 1940 Age: 83 Gender: female PROCEDURES PERFORMED LP07-(40616)BATTERY REMOVAL+REPLACEMENT PACER-DUAL LEAD INDICATIONS End-of-life replacement indicator [...] PPM generator was then interrogated by the professional programmer analyst. PPM ventricular lead (existing) was checked and tested. PPM atrial lead (existing) was checked and tested. Device pocket was irrigated with antibiotic. Subcutaneous closure was completed with 3-0 Vicryl. Skin closure was completed with 4-0 Vicryl. The patient tolerated the procedure well. Estimated Blood Loss: 5 ml's IMPLANTED / EX-PLANTED DEVICES IMPLANTED DEVICE(S): PPM Generator - Ostomy Nurse: [place], Model # Assurity MRI , Serial # [id number] DEVICE PARAMETERS DEVICE PARAMETERS: Mode- DOO Lower [...] Dictated: 04/11/24 1319 Date Transcribed: 04/12/24 1329 Coating Manager: CO Signed Normal [facility] Urinalysis, Routine (Dipstic k)on 04-11-2024 BILIRUBIN URINE Negative Normal Negative [facility] Comment on above: Order Comment: 'TROP ' Serial specimen #1, #2 or #3: 1 Performed By: #### L 501.4020, L500.4050, L503.6620, L100.0100 #### [facility] [address] [place], [place], [address] Clarity (U) Clear Normal Clear [facility] Comment on above: Order Comment: 'TROP ' Serial specimen #1, #2 or #3: 1 Performed By: #### L 501.4020, L500.4050, L503.6620, L100.0100 #### [facility] [address] [place], [address] Color (U) Yellow Normal Yellow [facility] Comment on above: Order Comment: 'TROP ' Serial specimen #1, #2 or #3: 1 Performed By: #### L 501.4020, L500.4050, L503.6620, L100.0100 #### [facility] [address] [place], [address] GLUCOSE, UR 250 mg/dl Abnormal Normal [facility] Comment on above: Order Comment: 'TROP ' Serial specimen #1, #2 or #3: 1 Performed By: #### L 501.4020, L500.4050, L503.6620, L100.0100 #### [facility] [address] [place], [address] KETONE UR Negative Normal Negative [facility] Comment on above: Order Comment: 'TROP ' Serial specimen #1, #2 or #3: 1 Performed By: #### L 501.4020, L500.4050, L503.6620, L100.0100 #### [facility] [address] [place], [address] LEUK ESTERASE 25 /ul Abnormal Negative [facility] Comment on above: Order Comment: 'TROP ' Serial specimen #1, #2 or #3: 1 Performed By: #### L 501.4020, L500.4050, L503.6620, L100.0100 #### [facility] [address] [place], [address] Nitrite Ql (U) Negative Normal Negative [facility] Comment on above: Order Comment: 'TROP ' Serial specimen #1, #2 or #3: 1 Performed By: #### L 501.4020, L500.4050, L503.6620, L100.0100 #### [facility] [address] [place], [address] OCCULT BLOOD-UR Negative Normal Negative [facility] Comment on above: Order Comment: 'TROP ' Serial specimen #1, #2 or #3: 1 Performed By: #### L 501.4020, L500.4050, L503.6620, L100.0100 #### [facility] [address] [place], [address] pH UR 7.0 Normal 5.0 - 8.[address] [facility] Comment on above: Order Comment: 'TROP ' Serial specimen #1, #2 or #3: 1 Performed By: #### L 501.4020, L500.4050, L503.6620, L100.0100 #### [facility] [address] [place], [address] PROT DIPSTX 30 mg/dl Abnormal Negative [facility] Comment on above: Order Comment: 'TROP ' Serial specimen #1, #2 or #3: 1 Performed By: #### L 501.4020, L500.4050, L503.6620, L100.0100 #### [facility] [address] [place], [address] SP.GR. DIPSTX 1.010 Normal 1.002-1.[address] [facility] Comment on above: Order Comment: 'TROP ' Serial specimen #1, #2 or #3: 1 Performed By: #### L 501.4020, L500.4050, L503.6620, L100.0100 #### [facility] [address] [place], [address] UROBILI Normal Normal Normal [facility] Comment on above: Order Comment: 'TROP ' Serial specimen #1, #2 or #3: 1 Performed By: #### L 501.4020, L500.4050, L503.6620, L100.0100 #### [facility] [address] [place], [address] CNOVon 04-06-2024 CNOV Office Visit ([facility] ) ANTONIO GUPTA ([id number]) 1940 F Date Time Provider Department 04/06/24 11:40 AM YOVANA PAINTER During your visit today, we recorded the following information about you: Pulse Respiration Blood pressure Weight 90/minute 16/minute 127/77 83.8 kg Yovana Painter APRN.HEALTH POLICY NURSE 04/06/2024 5:02 PM Signed This is a [...] ox was 82% in office. Which facility: [facility] Date of visit: 03/25/2024-03/29/2024 Diagnosis: Acute exacerbation [...] Coronary atherosclerosis of unspecified type of vessel, nulato or graft Stent x 2010 Depressive disorder, [...] visit. FAMIL (more content not included)... Normal [facility] 12 Lead EKG performed by [facility] on 04-05-2024 12 Lead EKG performed by [address] [address] 12 Lead EKG performed by [facility] 04/05/24757 MR#: [id number] Acct: [id number] Name: ANTONIO GUTPA Rep #: [id number] : 1940 83 From: Amber Ramsey Attending Dr: LUIS FELIPE Steinberg Status: DEP AMB Ordering Dr: Amber Palafox Date: 03/14 11/03 Location: [facility] Sex: F C Admitted: [facility]/12 Lead EKG performed by [facility] ECG Report Interpretation -----Electronic ventricular pacemaker Pacemaker ECG, No further analysis INSUFFICIENT DATAElectronically signed on 04/05/2024 at 13:30 by Vinny Root Software Version [id number] 04/05/24 1335 Date Amber BRISCOE CC: Dr. Victor M Rocha MD Date Dictated: 09/757 Date Transcribed: 04/05/24757 Coating Manager: MMM Signed Normal [facility] BNP,B-Type NATRIURETIC PEPTI Kiesha 04-05-2024 Natriuretic peptide B (Bld) [Mass/Vol] 433.7 pg/mL High 0-[address] [facility] Comment on above: Performed By: #### L 501.4020, L500.4050, L503.6620, L100.0100 #### [facility] [address] [place], [address] CBC-Complete Blood Cnt No Di ffon 04-05-2024 Erythrocyte distribution width (RBC) [Ratio] 16.3 % High 11.6-14.[address] [facility] Comment on above: Performed By: #### L 501.4020, L500.4050, L503.6620, L100.0100 #### [facility] [address] [place], [address] Hematocrit (Bld) [Volume fraction] 42.5 % Normal 37-[address] [facility] Comment on above: Performed By: #### L 501.4020, L500.4050, L503.6620, L100.0100 #### [facility] [address] [place], [address] Hemoglobin (Bld) [Mass/Vol] 12.8 g/dL Normal 12.0-15.[address] [facility] Comment on above: Performed By: #### L 501.4020, L500.4050, L503.6620, L100.0100 #### [facility] [address] [place], [address] MCH (RBC) [Entitic mass] 26.4 pg Low 27.0-32.[address] [facility] Comment on above: Performed By: #### L 501.4020, L500.4050, L503.6620, L100.0100 #### [facility] [address] [place], [address] MCHC (RBC) [Mass/Vol] 30.1 g/dL Low 32-36 [facility] Comment on above: Performed By: #### L 501.4020, L500.4050, L503.6620, L100.0100 #### [facility] [address] [place], [address] MCV (RBC) [Entitic vol] 87.6 fL Normal 81-99 [facility] Comment on above: Performed By: #### L 501.4020, L500.4050, L503.6620, L100.0100 #### [facility] [address] [place], [address] Platelet mean volume (Bld) [Entitic vol] 10.3 fL Normal 6.2-12.[address] [facility] Comment on above: Performed By: #### L 501.4020, L500.4050, L503.6620, L100.0100 #### [facility] [address] [place], [address] Platelets (Bld) [#/Vol] 412 10*3/uL Normal 150-[address] [facility] Comment on above: Performed By: #### L 501.4020, L500.4050, L503.6620, L100.0100 #### [facility] [address] [place], [address] RBC (Bld) [#/Vol] 4.85 10*6/uL Normal 4.2-5.4 [facility] Comment on above: Performed By: #### L 501.4020, L500.4050, L503.6620, L100.0100 #### [facility] [address] [place], [address] RDW SD 52.0 fl High 35.1-43.[address] [facility] Comment on above: Performed By: #### L 501.4020, L500.4050, L503.6620, L100.0100 #### [facility] [address] [place], [address] WBC (Bld) [#/Vol] 6.1 10*3/uL Normal 4.4-11.0 [facility] Comment on above: Performed By: #### L 501.4020, L500.4050, L503.6620, L100.0100 #### [facility] [address] [place], [address] CNPNon 04-05-2024 CNPN Telephone (MRIQ) ANTONIO GUPTA ([id number]) 1940 F Date Time Provider Department 04/05/24 [...] of the radiologist with whom you spoke. [facility] Staff Rad: Neuro [phone] The potential risks of the MRI exam [...] longer wanted, please cancel the order in [facility]. Thank You, MR Imaging Education / MRI [...] rescheduled. (Per Care Everywhere, patient was in [facility] as of 04/11.) Belle Mehta LPN 04/13/2024 [...] eyes twice daily. - blood sugar diagnostic (Datran MediaUCH VERIO TEST STRIPS) test strip TEST BLOOD [...] general m (more content not included)... Normal [facility] Cardiology Visit Reporton Cardiology Visit Report [facility] [address] [place], [place] [id number] OFFICE VISIT Date of Service: 04/05/24 MR#: [id number] Acct: [id number] Name: ANTONIO GUPTA Rep #: [id number] : 1940 Provider: LUIS FELIPE Bills Age/Sex: 83/F Location[place] [facility] Status: Signed HPI HPI History of [...] Gen Change 04/11/ Sees [place] @ 9 Signal Operator Required: No Is patient in pain?: No [...] no medication list, does not know medications [facility] Medical History Iron deficiency anemia History of non-ST elevation myocardial infarction (NSTEMI) (2013) Longstanding persistent atrial fibrillation Essential (primary) hypertension Anxiety Hypothyroidism Hyperlipidemia Secondary pulmonary arterial hypertension Atherosclerosis of coronary artery of nulato heart without angina pectoris Paroxysmal atrial fibrillation Paroxysmal atrial flutter Sick sinus syndrome Surgical History History of (more content not included)... Normal [facility] Chest PA and Lateralon 04-05 Chest PA and Lateral [facility] Imaging Services [address] [place] [id number] Chest PA and Lateral MR#: [id number] Acct: [id number] Name: ANTONIO GUPTA Rep #: [id number] : 1940 F 83 From: Cortes Casillas MD PCP: Dr. Victor M Rocha MD Status: REG CLI Study: Chest PA and Lateral Date of Exam: 04/05/24 Exam# [id number] Ordering Dr: Amber Palafox [id number] STUDY: X-RAY CHEST REASON FOR EXAM: Female, [...] Victor M Rocha MD; LUIS FELIPE Steinberg Coating Manager: Signed Normal [facility] Comprehensive Metabolic Prof ilon 04-05-2024 Albumin [Mass/Vol] 3.4 g/dL Normal 3.2-5.0 [facility] Comment on above: Performed By: #### L 501.4020, L500.4050, L503.6620, L100.0100 #### [facility] [address] [place], [address] Albumin/Globulin [Mass ratio] 0.6 {ratio} Low 0.9-2.[address] [facility] Comment on above: Performed By: #### L 501.4020, L500.4050, L503.6620, L100.0100 #### [facility] [address] [place], [address] ALK P 160 U/L High 45-[address] [facility] Comment on above: Performed By: #### L 501.4020, L500.4050, L503.6620, L100.0100 #### [facility] [address] [place], [address] ALT [Catalytic activity/Vol] 12 U/L Low 13-[address] [facility] Comment on above: Performed By: #### L 501.4020, L500.4050, L503.6620, L100.0100 #### [facility] [address] [place], [address] AST [Catalytic activity/Vol] 23 U/L Normal 15-[address] [facility] Comment on above: Result Comment: Slig ht Hemolysis, Result may be falsely increased. Performed By: #### L 501.4020, L500.4050, L503.6620, L100.0100 #### [facility] [address] [place], [address] Bilirubin [Mass/Vol] 0.60 mg/dL Normal 0.20-1.[address] [facility] Comment on above: Result Comment: For patients on eltrombopag therapy, use of Dimension [place] TBIL is not recommended. Performed By: #### L 501.4020, L500.4050, L503.6620, L100.0100 #### [facility] [address] [place], [address] BUN/CRE 10.0 RATIO Normal 10-[address] [facility] Comment on above: Performed By: #### L 501.4020, L500.4050, L503.6620, L100.0100 #### [facility] [address] [place], [address] CA,Total 10.2 mg/dL High 8.5-10.[address] [facility] Comment on above: Performed By: #### L 501.4020, L500.4050, L503.6620, L100.0100 #### [facility] [address] [place], [address] Chloride [Moles/Vol] 103 mmol/L Normal 98-[address] [facility] Comment on above: Performed By: #### L 501.4020, L500.4050, L503.6620, L100.0100 #### [facility] [address] [place], [address] CO2 [Moles/Vol] 26.0 mmol/L Normal 21.0-32.[address] [facility] Comment on above: Performed By: #### L 501.4020, L500.4050, L503.6620, L100.0100 #### [facility] [address] [place], [address] Creatinine [Mass/Vol] 1.30 mg/dL High 0.55-1.02 [facility] Comment on above: Result Comment: The validity of the calculated GFR GFRAA in patients over 70 years has not been determined. Clinical correlation is essential. Performed By: #### L 501.4020, L500.4050, L503.6620, L100.0100 #### [facility] [address] [place], [address] EST GFR - AA 50 mL/min Low >[address] [facility] Comment on above: Result Comment: Afri can [place] GFR Calc Performed By: #### L 501.4020, L500.4050, L503.6620, L100.0100 #### [facility] [address] [place], [address] GAP 5 Normal 5-[address] [facility] Comment on above: Performed By: #### L 501.4020, L500.4050, L503.6620, L100.0100 #### [facility] [address] [place], [address] GFR/1.73 sq M.predicted among non-blacks MDRD (S/P/Bld) [Vol rate/Area] 41 mL/min/{1.73_m2} Low >[address] [facility] Comment on above: Result Comment: Non- GFR Calc Performed By: #### L 501.4020, L500.4050, L503.6620, L100.0100 #### [facility] [address] [place], [address] Globulin (S) [Mass/Vol] 5.8 g/dL High 2.2-4.2 [facility] Comment on above: Performed By: #### L 501.4020, L500.4050, L503.6620, L100.0100 #### [facility] [address] [place], [address] Glucose [Mass/Vol] 103 mg/dL Normal 74-106 [facility] Comment on above: Result Comment: Fast ing Glucose result from 100 to 125 mg/dL suggests IMPAIRED HOMEOSTASIS per A.D.A. criteria. Performed By: #### L 501.4020, L500.4050, L503.6620, L100.0100 #### [facility] [address] [place], [address] Potassium [Moles/Vol] 4.0 mmol/L Normal 3.5-5.1 [facility] Comment on above: Result Comment: Slig ht Hemolysis, Result may be falsely increased. Performed By: #### L 501.4020, L500.4050, L503.6620, L100.0100 #### [facility] [address] [place], [address] Sodium [Moles/Vol] 134 mmol/L Low 136-145 [facility] Comment on above: Performed By: #### L 501.4020, L500.4050, L503.6620, L100.0100 #### [facility] [address] [place], [address] T PROT 9.2 g/dL High 6.4-8.[address] [facility] Comment on above: Performed By: #### L 501.4020, L500.4050, L503.6620, L100.0100 #### [facility] [address] [place], [address] Urea nitrogen [Mass/Vol] 13 mg/dL Normal 7-[address] [facility] Comment on above: Performed By: #### L 501.4020, L500.4050, L503.6620, L100.0100 #### [facility] [address], [address] Pacemaker Checkon 04-05-2024 [address]emaker [address] [facility] [place] [facility] [address] [place], [place] [address] Pacemaker Check Date of Service: 04/05/24 1425 MR#: [id number] Acct: [id number] Name: ANTONIO GUPTA Rep #: [id number] : 1940 From: Marni Waldron Age/Sex: 83/F Location: [facility] Status: Signed Assessment and Plan Assessment and [...] (if applicable) CC: Normal [facility] Basic Metabolic Profile (BMP )on 04-01-2024 BUN Normal -[address] [facility] Comment on above: Result Comment: Canc elled via OM: Order cancelled - Patient discharged Performed By: #### L 500.2500 #### [facility] [address] [place], [address] BUN/CRE Normal - [facility] Comment on above: Result Comment: Canc elled via OM: Order cancelled - Patient discharged Performed By: #### L 500.2500 #### [facility] [address] [place], [address] CA,Total Normal 8.5-10.[address] [facility] Comment on above: Result Comment: Canc elled via OM: Order cancelled - Patient discharged Performed By: #### L 500.2500 #### [facility] [address] [place], [address] CL Normal 98-[address] [facility] Comment on above: Result Comment: Canc elled via OM: Order cancelled - Patient discharged Performed By: #### L 500.2500 #### [facility] [address] [place], [address] CO2 Normal 21.0-32.[address] [facility] Comment on above: Result Comment: Canc elled via OM: Order cancelled - Patient discharged Performed By: #### L 500.2500 #### [facility] [address] [place], [address] CREAT,SERUM Normal 0.55-1.[address] [facility] Comment on above: Result Comment: Canc elled via OM: Order cancelled - Patient discharged Performed By: #### L 500.2500 #### [facility] [address] [place], [address] EST GFR Normal >[address] [facility] Comment on above: Result Comment: Canc elled via OM: Order cancelled - Patient discharged Performed By: #### L 500.2500 #### [facility] [address] [place], [address] EST GFR - AA Normal >[address] [facility] Comment on above: Result Comment: Canc elled via OM: Order cancelled - Patient discharged Performed By: #### L 500.2500 #### [facility] [address] [place], [address] GAP Normal 5-[address] [facility] Comment on above: Result Comment: Canc elled via OM: Order cancelled - Patient discharged Performed By: #### L 500.2500 #### [facility] [address] [place], [address] GLU Normal 74-[address] [facility] Comment on above: Result Comment: Canc elled via OM: Order cancelled - Patient discharged Performed By: #### L 500.2500 #### [facility] [address] [place], [address] Potassium Normal 3.5-5.[address] [facility] Comment on above: Result Comment: Canc elled via OM: Order cancelled - Patient discharged Performed By: #### L 500.2500 #### [facility] [address] [place], [address] Basic Metabolic Profile (BMP) Normal 136-[address] [facility] Comment on above: Result Comment: Canc elled via OM: Order cancelled - Patient discharged Performed By: #### L 500.2500 #### [facility] [address] [place], [address] CNOVSPon 04-01-2024 [facility] Visit (SP) Office (HEMAWS) ANTONIO GUPTA ([id number]) 1940 F Date Time Provider Department 04/01/24 [...] since 2014. 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 Root for increased fatigue and was [...] taking aspirin along with Xarelto. Has h/o [place] (PCI with stents), atrial fibrillation (on rivaroxaban), [...] Review (MPA) Reviewed by Yong Altamirano MD [place] [facility], Serum 3.3 - 19.4 mg/L 70.4 [...] were copi (more content not included)... 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 Normal [facility] Basic Metabolic Profile (BMP )on 03-31-2024 BUN Normal 7-[address] [facility] Comment on above: Result Comment: Canc elled via OM: Order cancelled - Patient discharged Performed By: #### L 500.2500 #### [facility] [address] [place], [address] BUN/CRE Normal 10-[address] [facility] Comment on above: Result Comment: Canc elled via OM: Order cancelled - Patient discharged Performed By: #### L 500.2500 #### [facility] [address] [place], [address] CA,Total Normal 8.5-10.[address] [facility] Comment on above: Result Comment: Canc elled via OM: Order cancelled - Patient discharged Performed By: #### L 500.2500 #### [facility] [address] [place], [address] CL Normal 98-[address] [facility] Comment on above: Result Comment: Canc elled via OM: Order cancelled - Patient discharged Performed By: #### L 500.2500 #### [facility] [address] [place], [address] CO2 Normal 21.0-32.[address] [facility] Comment on above: Result Comment: Canc elled via OM: Order cancelled - Patient discharged Performed By: #### L 500.2500 #### [facility] [address] [place], [address] CREAT,SERUM Normal 0.55-1.[address] [facility] Comment on above: Result Comment: Canc elled via OM: Order cancelled - Patient discharged Performed By: #### L 500.2500 #### [facility] [address] [place], [address] EST GFR Normal >[address] [facility] Comment on above: Result Comment: Canc elled via OM: Order cancelled - Patient discharged Performed By: #### L 500.2500 #### [facility] [address] [place], [address] EST GFR - AA Normal >[address] [facility] Comment on above: Result Comment: Canc elled via OM: Order cancelled - Patient discharged Performed By: #### L 500.2500 #### [facility] [address] [place], [address] GAP Normal 5-[address] [facility] Comment on above: Result Comment: Canc elled via OM: Order cancelled - Patient discharged Performed By: #### L 500.2500 #### [facility] [address] [place], [address] GLU Normal 74-[address] [facility] Comment on above: Result Comment: Canc elled via OM: Order cancelled - Patient discharged Performed By: #### L 500.2500 #### [facility] [address] [place], [address] Potassium Normal 3.5-5.[address] [facility] Comment on above: Result Comment: Canc elled via OM: Order cancelled - Patient discharged Performed By: #### L 500.2500 #### [facility] [address] [place], [address] Basic Metabolic Profile (BMP) Normal 136-[address] [facility] Comment on above: Result Comment: Canc elled via OM: Order cancelled - Patient discharged Performed By: #### L 500.2500 #### [facility] [address] [place], [address] [facility] ([id number]) 1940 F Date Time Provider Department 03/31/24 VICTOR M ROCHAWS During your visit today, we recorded the following information about you: Gisselle Banda LPN 03/31/2024 11:37 AM Signed Phan from [facility] calling: Yesterday HH initiated and started Today 03/31/24- patient wishes to d/c services. PATIENT's is there and is managing O2 well. 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 Comment on above: Result Comment: Canc elled via OM: Order cancelled - Patient discharged Performed By: #### L 501.4020, L500.4050, L503.6620, L100.0100 #### [facility] [address] [place], [address] BUN/CRE Normal 10-[address] [facility] Comment on above: Result Comment: Canc elled via OM: Order cancelled - Patient discharged Performed By: #### L 501.4020, L500.4050, L503.6620, L100.0100 #### [facility] [address] [place], [address] CA,Total Normal 8.5-10.[address] [facility] Comment on above: Result Comment: Canc elled via OM: Order cancelled - Patient discharged Performed By: #### L 501.4020, L500.4050, L503.6620, L100.0100 #### [facility] [address] [place], [address] CL Normal 98-[address] [facility] Comment on above: Result Comment: Canc elled via OM: Order cancelled - Patient discharged Performed By: #### L 501.4020, L500.4050, L503.6620, L100.0100 #### [facility] [address] [place], [address] CO2 Normal 21.0-32.[address] [facility] Comment on above: Result Comment: Canc elled via OM: Order cancelled - Patient discharged Performed By: #### L 501.4020, L500.4050, L503.6620, L100.0100 #### [facility] [address] [place], [address] CREAT,SERUM Normal 0.55-1.[address] [facility] Comment on above: Result Comment: Canc elled via OM: Order cancelled - Patient discharged Performed By: #### L 501.4020, L500.4050, L503.6620, L100.0100 #### [facility] [address] [place], [address] EST GFR Normal >[address] [facility] Comment on above: Result Comment: Canc elled via OM: Order cancelled - Patient discharged Performed By: #### L 501.4020, L500.4050, L503.6620, L100.0100 #### [facility] [address] [place], [address] EST GFR - AA Normal >[address] [facility] Comment on above: Result Comment: Canc elled via OM: Order cancelled - Patient discharged Performed By: #### L 501.4020, L500.4050, L503.6620, L100.0100 #### [facility] [address] [place], [address] GAP Normal 5-[address] [facility] Comment on above: Result Comment: Canc elled via OM: Order cancelled - Patient discharged Performed By: #### L 501.4020, L500.4050, L503.6620, L100.0100 #### [facility] [address] [place], [address] GLU Normal 74-[address] [facility] Comment on above: Result Comment: Canc elled via OM: Order cancelled - Patient discharged Performed By: #### L 501.4020, L500.4050, L503.6620, L100.0100 #### [facility] [address] [place], [address] Potassium Normal 3.5-5.[address] [facility] Comment on above: Result Comment: Canc elled via OM: Order cancelled - Patient discharged Performed By: #### L 501.4020, L500.4050, L503.6620, L100.0100 #### [facility] [address] [place], [address] Basic Metabolic Profile (BMP) Normal 136-[address] [facility] Comment on above: Result Comment: Canc elled via OM: Order cancelled - Patient discharged Performed By: #### L 501.4020, L500.4050, L503.6620, L100.0100 #### [facility] [address] [place], [address] [facility] ([id number]) 1940 F Date Time Provider Department 03/30/24 [facility] During [facility] visit today, we recorded the following information about you: Shanti Astorga, NIYA 03/30/2024 4:06 PM Signed Fanny nurse with [facility] calling with the following: Update: Nursing Plan [...] these medications. Please call Fanny with reply: [phone] Thank you. 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 Normal [facility] Basic Metabolic Profile (BMP )on 03-29-2024 BUN/CRE 13.2 RATIO Normal 10-[address] [facility] Comment on above: Performed By: #### L 501.4020, L500.4050, L503.6620, L100.0100 #### [facility] [address] [place], [address] CA,Total 9.2 mg/dL Normal 8.5-10.[address] [facility] Comment on above: Performed By: #### L 501.4020, L500.4050, L503.6620, L100.0100 #### [facility] [address] [place], [address] Chloride [Moles/Vol] 96 mmol/L Low 98-[address] [facility] Comment on above: Performed By: #### L 501.4020, L500.4050, L503.6620, L100.0100 #### [facility] [address] [place], [address] CO2 [Moles/Vol] 32.0 mmol/L Normal 21.0-32.[address] [facility] Comment on above: Performed By: #### L 501.4020, L500.4050, L503.6620, L100.0100 #### [facility] [address] [place], [address] Creatinine [Mass/Vol] 1.21 mg/dL High 0.55-1.02 [facility] Comment on above: Result Comment: The validity of the calculated GFR GFRAA in patients over 70 years has not been determined. Clinical correlation is essential. Performed By: #### L 501.4020, L500.4050, L503.6620, L100.0100 #### [facility] [address] [place], [address] ECRCL 39.61 ml/min Normal [facility] Comment on above: Performed By: #### L 501.4020, L500.4050, L503.6620, L100.0100 #### [facility] [address] [place], [address] EST GFR - AA 54 mL/min Low >[address] [facility] Comment on above: Result Comment: Afri can [place] GFR Calc Performed By: #### L 501.4020, L500.4050, L503.6620, L100.0100 #### [facility] [address] [place], [address] GAP 7 Normal 5-[address] [facility] Comment on above: Performed By: #### L 501.4020, L500.4050, L503.6620, L100.0100 #### [facility] [address] [place], [address] GFR/1.73 sq M.predicted among non-blacks MDRD (S/P/Bld) [Vol rate/Area] 45 mL/min/{1.73_m2} Low >[address] [facility] Comment on above: Result Comment: Non- GFR Calc Performed By: #### L 501.4020, L500.4050, L503.6620, L100.0100 #### [facility] [address] [place], [address] Glucose [Mass/Vol] 106 mg/dL Normal 74-106 [facility] Comment on above: Result Comment: Fast ing Glucose result from 100 to 125 mg/dL suggests IMPAIRED HOMEOSTASIS per A.D.A. criteria. Performed By: #### L 501.4020, L500.4050, L503.6620, L100.0100 #### [facility] [address] [place], [address] Potassium [Moles/Vol] 3.2 mmol/L Low 3.5-5.1 [facility] Comment on above: Performed By: #### L 501.4020, L500.4050, L503.6620, L100.0100 #### [facility] [address] [place], [address] Sodium [Moles/Vol] 135 mmol/L Low 136-145 [facility] Comment on above: Performed By: #### L 501.4020, L500.4050, L503.6620, L100.0100 #### [facility] [address] [place], [address] Urea nitrogen [Mass/Vol] 16 mg/dL Normal 7-[address] [facility] Comment on above: Performed By: #### L 501.4020, L500.4050, L503.6620, L100.0100 #### [facility] [address] [place], [address] Kodi 03-29-2024 [facility] Telephone ([facility]) ANTONIO GUPTA ([id number]) 1940 F Date Time Provider Department 03/29/24 VICTOR M ROCHA During your visit today, we recorded the following information about you: Rose Manuel LPN 03/29/2024 1:59 PM Signed Yovana with [facility] calls to report pt was getting discharged today from [facility]. Pt has orders for Nursing, PT, and [...] LPN 03/29/2024 2:01 PM Signed Yovana with [facility] notified. Verbalized understanding. Allergies As of [...] eyes twice daily. - blood sugar diagnostic (ImmusanT VERIO TEST STRIPS) test strip TEST BLOOD [...] 10/04/2008 08/13/2011 Routine general medical examination at [facility]*10/04/2008 08/12/2010 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, M94.9] 10/31/2008 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HCC) [F33* Atherosclerotic heart disease of nul[place] coronar* Essential hypertension, benign [I10] 08/13/2011 S/P [...] Encounter Status:Closed by PATY ALAN on 03/29/24 [facility] Discharge Instructionon 03-13 Discharge Instruction [facility] Medical Records Department [address] [place] [address] Instructions for Home/Discharge Instructions 03/29/24 1128 MR#: [id number] Acct: [id number] Name: ANTONIO GUPTA Rep #: [id number] : 1940 83 From: Juice Elizabeth DO [...] Zuniga MD Signed Normal [facility] Basic Metabolic Profile (BMP )on 03-28-2024 BUN Normal 7-[address] [facility] Comment on above: Result Comment: Canc elled via OM: Ordered Performed By: #### L 500.2500 ####[facility] [address] [place], [address] BUN/CRE Normal 10-[address] [facility] Comment on above: Result Comment: Canc elled via OM: MD Ordered Performed By: #### L 500.2500 ####[facility] [address] [place], [address] CA,Total Normal 8.5-10.[address] [facility] Comment on above: Result Comment: Canc elled via OM: MD Ordered Performed By: #### L 500.2500 ####[facility] [address] [place], [address] CL Normal 98-[address] [facility] Comment on above: Result Comment: Canc elled via OM: MD Ordered Performed By: #### L 500.2500 ####[facility] [address] [place], [address] CO2 Normal 21.0-32.[address] [facility] Comment on above: Result Comment: Canc elled via OM: MD Ordered Performed By: #### L 500.2500 ####[facility] [address] [place], [address] CREAT,SERUM Normal 0.55-1.[address] [facility] Comment on above: Result Comment: Canc elled via OM: MD Ordered Performed By: #### L 500.2500 ####[facility] [address] [place], [address] EST GFR Normal >[address] [facility] Comment on above: Result Comment: Canc elled via OM: MD Ordered Performed By: #### L 500.2500 ####[facility] [address] [place], [address] EST GFR - AA Normal >[address] [facility] Comment on above: Result Comment: Canc elled via OM: MD Ordered Performed By: #### L 500.2500 ####[facility] [address] [place], [address] GAP Normal 5-[address] [facility] Comment on above: Result Comment: Canc elled via OM: MD Ordered Performed By: #### L 500.2500 ####[facility] [address] [place], [address] GLU Normal 74-[address] [facility] Comment on above: Result Comment: Canc elled via OM: MD Ordered Performed By: #### L 500.2500 ####[facility] [address] [place], [address] Potassium Normal 3.5-5.[address] [facility] Comment on above: Result Comment: Canc elled via OM: MD Ordered Performed By: #### L 500.2500 ####[facility] [address] [place], [address] Basic Metabolic Profile (BMP) Normal 136-[address] [facility] Comment on above: Result Comment: Canc elled via OM: MD Ordered Performed By: #### L 500.2500 ####[facility] [address] 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 [address] [place] [address] Chest MR#: [id number] Acct: [id number] Name: ANTONIO GUPTA Rep #: [id number] : 1940 F 83 From: Bello snyder MD PCP: Dr. Victor M Rocha MD Status: ADM IN Study: Chest Date of Exam: 03/28/24 Exam# [id number] Ordering Dr: Juice Elizabeth DO [id number] STUDY: SUPERFICIAL ULTRASOUND - RIGHT PLEURAL SPACE. [...] Elizabeth DO; Dr. Victor M Rocha MD Coating Manager: Signed Normal [facility] Comprehensive Metabolic Prof ilon 03-28-2024 Albumin [Mass/Vol] 3.1 g/dL Low 3.2-5.0 [facility] Comment on above: Performed By: #### L 500.4050, L504.2610 ####[facility] [address] [place], [address] Albumin/Globulin [Mass ratio] 0.5 {ratio} Low 0.9-2.[address] [facility] Comment on above: Performed By: #### L 500.4050, L504.2610 ####[facility] [address] [place], [address] ALK P 152 U/L High 45-[address] [facility] Comment on above: Performed By: #### L 500.4050, L504.2610 ####[facility] [address] [place], [address] ALT [Catalytic activity/Vol] 12 U/L Low 13-[address] [facility] Comment on above: Performed By: #### L 500.4050, L504.2610 ####[facility] [address] [place], [address] AST [Catalytic activity/Vol] 15 U/L Normal 15-[address] [facility] Comment on above: Performed By: #### L 500.4050, L504.2610 ####[facility] [address] [place], [address] Bilirubin [Mass/Vol] 0.90 mg/dL Normal 0.20-1.[address] [facility] Comment on above: Result Comment: For patients on eltrombopag therapy, use of Dimension [place] TBIL is not recommended. Performed By: #### L 500.4050, L504.2610 ####[facility] [address] [place], [address] BUN/CRE 11.0 RATIO Normal 10-[address] [facility] Comment on above: Performed By: #### L 500.4050, L504.2610 ####[facility] [address] [place], [address] CA,Total 9.8 mg/dL Normal 8.5-10.[address] [facility] Comment on above: Performed By: #### L 500.4050, L504.2610 ####[facility] [address] [place], [address] Chloride [Moles/Vol] 93 mmol/L Low 98-[address] [facility] Comment on above: Performed By: #### L 500.4050, L504.2610 ####[facility] [address] [place], [address] CO2 [Moles/Vol] 32.0 mmol/L Normal 21.0-32.[address] [facility] Comment on above: Performed By: #### L 500.4050, L504.2610 ####[facility] [address] [place], [address] Creatinine [Mass/Vol] 1.36 mg/dL High 0.55-1.02 [facility] Comment on above: Result Comment: The validity of the calculated GFR GFRAA in patients over 70 years has not been determined. Clinical correlation is essential. Performed By: #### L 500.4050, L504.2610 ####[facility] [address] [place], [address] ECRCL 35.42 ml/min Normal [facility] Comment on above: Performed By: #### L 500.4050, L504.2610 ####[facility] [address] [place], [address] EST GFR - AA 48 mL/min Low >[address] [facility] Comment on above: Result Comment: Afri can [place] GFR Calc Performed By: #### L 500.4050, L504.2610 ####[facility] [address] [place], [address] GAP 7 Normal 5-[address] [facility] Comment on above: Performed By: #### L 500.4050, L504.2610 ####[facility] [address] [place], [address] GFR/1.73 sq M.predicted among non-blacks MDRD (S/P/Bld) [Vol rate/Area] 39 mL/min/{1.73_m2} Low >[address] [facility] Comment on above: Result Comment: Non- GFR Calc Performed By: #### L 500.4050, L504.2610 ####[facility] [address] [place], [address] Globulin (S) [Mass/Vol] 6.1 g/dL High 2.2-4.2 [facility] Comment on above: Performed By: #### L 500.4050, L504.2610 ####[facility] [address] [place], [address] Glucose [Mass/Vol] 115 mg/dL High 74-106 [facility] Comment on above: Result Comment: Fast ing Glucose result from 100 to 125 mg/dL suggests IMPAIRED HOMEOSTASIS per A.D.A. criteria. Performed By: #### L 500.4050, L504.2610 ####[facility] [address] [place], [address] Potassium [Moles/Vol] 3.2 mmol/L Low 3.5-5.1 [facility] Comment on above: Performed By: #### L 500.4050, L504.2610 ####[facility] [address] [place], [address] Sodium [Moles/Vol] 132 mmol/L Low 136-145 [facility] Comment on above: Performed By: #### L 500.4050, L504.2610 ####[facility] [address] [place], [address] T PROT 9.2 g/dL High 6.4-8.[address] [facility] Comment on above: Performed By: #### L 500.4050, L504.2610 ####[facility] [address] [place], [address] Urea nitrogen [Mass/Vol] 15 mg/dL Normal 7-[address] [facility] Comment on above: Performed By: #### L 500.4050, L504.2610 ####[facility] [address] [place], [address] LDHon 03-28-2024 LDH 219 U/L Normal 84-[address] [facility] Comment on above: Performed By: #### L 500.4050, L504.2610 ####[facility] [address] [place], [address] Partial Thromboplast Timeon 03-28-2024 aPTT Coag (Bld) [Time] 49.7 s High 24.1-36.2 [facility] Comment on above: Performed By: #### L 300.4310, L300.3900 ####[facility] [address] [place], [address] Prothrombin Time w/INRon INR Coag (PPP) [Relative time] 2.5 {INR} Normal [facility] Comment on above: Performed By: #### L 300.4310, L300.3900 #### [facility] [address] [place], [address] PT Coag (PPP) [Time] 26.8 s High 11.7-14.[address] [facility] Comment on above: Performed By: #### L 300.4310, L300.3900 #### [facility] [address] [place], [address] Basic Metabolic Profile (BMP )on 03-27-2024 BUN/CRE 8.0 RATIO Low 10-[address] [facility] Comment on above: Performed By: #### L 500.2500 ####[facility] [address] [place], [address] CA,Total 9.4 mg/dL Normal 8.5-10.[address] [facility] Comment on above: Performed By: #### L 500.2500 ####[facility] [address] [place], [address] Chloride [Moles/Vol] 94 mmol/L Low 98-[address] [facility] Comment on above: Performed By: #### L 500.2500 ####[facility] [address] [place], [address] CO2 [Moles/Vol] 33.0 mmol/L High 21.0-32.[address] [facility] Comment on above: Performed By: #### L 500.2500 ####[facility] [address] [place], [address] Creatinine [Mass/Vol] 1.37 mg/dL High 0.55-1.02 [facility] Comment on above: Result Comment: The validity of the calculated GFR GFRAA in patients over 70 years has not been determined. Clinical correlation is essential. Performed By: #### L 500.2500 ####[facility] [address] [place], [address] ECRCL 36.11 ml/min Normal [facility] Comment on above: Performed By: #### L 500.2500 ####[facility] [address] [place], [address] EST GFR - AA 47 mL/min Low >[address] [facility] Comment on above: Result Comment: Afri can [place] GFR Calc Performed By: #### L 500.2500 ####[facility] [address] [place], [address] GAP 6 Normal 5-[address] [facility] Comment on above: Performed By: #### L 500.2500 ####[facility] [address] [place], [address] GFR/1.73 sq M.predicted among non-blacks MDRD (S/P/Bld) [Vol rate/Area] 39 mL/min/{1.73_m2} Low >[address] [facility] Comment on above: Result Comment: Non- GFR Calc Performed By: #### L 500.2500 ####[facility] [address] [place], [address] Glucose [Mass/Vol] 165 mg/dL High 74-106 [facility] Comment on above: Result Comment: Fast ing Glucose result greater than or equal to 126 mg/dL suggests DIABETES MELLITUS per A.D.A. criteria. Performed By: #### L 500.2500 ####[facility] [address] [place], [address] Potassium [Moles/Vol] 3.9 mmol/L Normal 3.5-5.1 [facility] Comment on above: Performed By: #### L 500.2500 ####[facility] [address] [place], [address] Sodium [Moles/Vol] 133 mmol/L Low 136-145 [facility] Comment on above: Performed By: #### L 500.2500 ####[facility] [address] [place], [address] Urea nitrogen [Mass/Vol] 11 mg/dL Normal 7-[address] [facility] Comment on above: Performed By: #### L 500.2500 ####[facility] [address] [place], [address] BUN/CRE 9.6 RATIO Low 10-[address] [facility] Comment on above: Performed By: #### L 501.4020, L500.4050, L503.6620, L100.0100 #### [facility] [address] [place], [address] CA,Total 8.9 mg/dL Normal 8.5-10.[address] [facility] Comment on above: Performed By: #### L 501.4020, L500.4050, L503.6620, L100.0100 #### [facility] [address] [place], [address] Chloride [Moles/Vol] 94 mmol/L Low 98-[address] [facility] Comment on above: Performed By: #### L 501.4020, L500.4050, L503.6620, L100.0100 #### [facility] [address] [place], [address] CO2 [Moles/Vol] 33.0 mmol/L High 21.0-32.[address] [facility] Comment on above: Performed By: #### L 501.4020, L500.4050, L503.6620, L100.0100 #### [facility] [address] [place], [address] Creatinine [Mass/Vol] 1.14 mg/dL High 0.55-1.02 [facility] Comment on above: Result Comment: The validity of the calculated GFR GFRAA in patients over 70 years has not been determined. Clinical correlation is essential. Performed By: #### L 501.4020, L500.4050, L503.6620, L100.0100 #### [facility] [address] [place], [address] ECRCL 43.81 ml/min Normal [facility] Comment on above: Performed By: #### L 501.4020, L500.4050, L503.6620, L100.0100 #### [facility] [address] [place], [address] EST GFR - AA 58 mL/min Low >[address] [facility] Comment on above: Result Comment: Afri can [place] GFR Calc Performed By: #### L 501.4020, L500.4050, L503.6620, L100.0100 #### [facility] [address] [place], [address] GAP 7 Normal 5-[address] [facility] Comment on above: Performed By: #### L 501.4020, L500.4050, L503.6620, L100.0100 #### [facility] [address] [place], [address] GFR/1.73 sq M.predicted among non-blacks MDRD (S/P/Bld) [Vol rate/Area] 48 mL/min/{1.73_m2} Low >[address] [facility] Comment on above: Result Comment: Non- GFR Calc Performed By: #### L 501.4020, L500.4050, L503.6620, L100.0100 #### [facility] [address] [place], [address] Glucose [Mass/Vol] 77 mg/dL Normal 74-106 [facility] Comment on above: Performed By: #### L 501.4020, L500.4050, L503.6620, L100.0100 #### [facility] [address] [place], [address] Potassium [Moles/Vol] 2.6 mmol/L Invalid Interpretation Code 3.5-5.[address] [facility] Comment on above: Result Comment: Crit ical Result(s) Called at: 05:43:14 03/27/2024 by: Kishan Hoyt. elissa Randall RN PCU. Results read back by same. Performed By: #### L 501.4020, L500.4050, L503.6620, L100.0100 #### [facility] [address] [place], [address] Sodium [Moles/Vol] 134 mmol/L Low 136-145 [facility] Comment on above: Performed By: #### L 501.4020, L500.4050, L503.6620, L100.0100 #### [facility] Laboratory [address] [place], [address] Urea nitrogen [Mass/Vol] 11 mg/dL Normal 7-[address] [facility] Comment on above: Performed By: #### L 501.4020, L500.4050, L503.6620, L100.0100 #### [facility] Laboratory [address], [address] Chest 1 View (Portable)on Chest 1 View (Portable) [facility] Imaging Services [address] [place] [address] Chest 1 View (Portable) MR#: [id number] Acct: [id number] Name: ANTONIO GUPTA Rep #: [id number] : 1940 F 83 From: Manan Soto DO PCP: Dr. Victor M Rocha MD Status: ADM IN Study: Chest 1 View (Portable) Date of Exam: 03/27/24 Exam# [id number] Ordering Dr: Juice Elizabeth DO [id number] INDICATION: CHF exac w/ ongoing hypoxia EXAMINATION/TECHNIQUE [...] 17:09 EDT Reading Location ID and State: [facility] / [place] Tel [phone], Service support , CC: Dr. Juice Elizabeth DO; Dr. Victor M Rocha MD Coating Manager: Signed Normal [facility] Consultation - Cardiologyon 03-27-2024 Consultation - Cardiology [facility] Medical Records Department [address] [place] [address] Consultation - Cardiology 03/27/24 0942 MR#: [id number] Acct: [id number] Name: ANTONIO GUPTA Rep #: [id number] : 1940 83 From: Terrance Zuniga MD PCP: Dr. Victor M Rocha MD Status:ADM IN Location: [place] [address] Assessment Plan Assessment/Plan (1) Acute hypoxemic respiratory [...] diuresis. 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 6. If further assistance is needed please call me directly I will be available by phone and if combat information center officer is needed in-house Dr. Parra will be covering starting March 28 in the morning. HPI Consult Data Date of Consult: 03/27/24 HPI Narrative Reason for Consultation: Hypoxia and congestive heart failure. HPI Narrative: ANTONIO GUPTA, is a 83 F who presents with a history of hypoxia. 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 Normal [facility] Magnesiumon 03-27-2024 Magnesium [Mass/Vol] 1.8 mg/dL Normal 1.6-2.[address] [facility] Comment on above: Result Comment: Slig ht Hemolysis, Result may be falsely increased. Performed By: #### L 501.4020, L500.4050, L503.6620, L100.0100 #### [facility] Laboratory [address] [place], [address] Phosphoruson 03-27-2024 Phosphate [Mass/Vol] 4.0 mg/dL Normal 2.5-4.[address] [facility] Comment on above: Performed By: #### L 501.4020, L500.4050, L503.6620, L100.0100 #### [facility] Laboratory [address] [place], [address] Basic Metabolic Profile (BMP )on 03-26-2024 BUN/CRE 8.7 RATIO Low 10-[address] [facility] Comment on above: Performed By: #### L 500.2500, L100.0500 ####[facility] [address] [place], [address] CA,Total 9.0 mg/dL Normal 8.5-10.[address] [facility] Comment on above: Performed By: #### L 500.2500, L100.0500 ####[facility] [address] [place], [address] Chloride [Moles/Vol] 101 mmol/L Normal 98-[address] [facility] Comment on above: Performed By: #### L 500.2500, L100.0500 ####[facility] [address] [place], [address] CO2 [Moles/Vol] 31.0 mmol/L Normal 21.0-32.[address] [facility] Comment on above: Performed By: #### L 500.2500, L100.0500 ####[facility] [address] [place], [address] Creatinine [Mass/Vol] 1.26 mg/dL High 0.55-1.02 [facility] Comment on above: Result Comment: The validity of the calculated GFR GFRAA in patients over 70 years has not been determined. Clinical correlation is essential. Performed By: #### L 500.2500, L100.0500 ####[facility] [address] [place], [address] ECRCL 39.38 ml/min Normal [facility] Comment on above: Performed By: #### L 500.2500, L100.0500 ####[facility] [address] [place], [address] EST GFR - AA 52 mL/min Low >[address] [facility] Comment on above: Result Comment: Afri can [place] GFR Calc Performed By: #### L 500.2500, L100.0500 ####[facility] [address] [place], [address] GAP 5 Normal 5-[address] [facility] Comment on above: Performed By: #### L 500.2500, L100.0500 ####[facility] [address] [place], [address] GFR/1.73 sq M.predicted among non-blacks MDRD (S/P/Bld) [Vol rate/Area] 43 mL/min/{1.73_m2} Low >[address] [facility] Comment on above: Result Comment: Non- GFR Calc Performed By: #### L 500.2500, L100.0500 ####[facility] [address] [place], [address] Glucose [Mass/Vol] 74 mg/dL Normal 74-106 [facility] Comment on above: Performed By: #### L 500.2500, L100.0500 ####[facility] [address] [place], [address] Potassium [Moles/Vol] 3.6 mmol/L Normal 3.5-5.1 [facility] Comment on above: Performed By: #### L 500.2500, L100.0500 ####[facility] [address] [place], [address] Sodium [Moles/Vol] 137 mmol/L Normal 136-145 [facility] Comment on above: Performed By: #### L 500.2500, L100.0500 ####[facility] [address] [place], [address] Urea nitrogen [Mass/Vol] 11 mg/dL Normal 7-[address] [facility] Comment on above: Performed By: #### L 500.2500, L100.0500 ####[facility] [address] [place], [address] CBC-Complete Blood Cnt No Di ffon 03-26-2024 Erythrocyte distribution width (RBC) [Ratio] 16.5 % High 11.6-14.[address] [facility] Comment on above: Performed By: #### L 500.2500, L100.0500 ####[facility] [address] [place], [address] Hematocrit (Bld) [Volume fraction] 35.2 % Low 37-[address] [facility] Comment on above: Performed By: #### L 500.2500, L100.0500 ####[facility] [address] [place], [address] Hemoglobin (Bld) [Mass/Vol] 10.8 g/dL Low 12.0-15.[address] [facility] Comment on above: Performed By: #### L 500.2500, L100.0500 ####[facility] [address] [place], [address] MCH (RBC) [Entitic mass] 26.7 pg Low 27.0-32.[address] [facility] Comment on above: Performed By: #### L 500.2500, L100.0500 ####[facility] [address] [place], [address] MCHC (RBC) [Mass/Vol] 30.7 g/dL Low 32-36 [facility] Comment on above: Performed By: #### L 500.2500, L100.0500 ####[facility] [address] [place], [address] MCV (RBC) [Entitic vol] 87.1 fL Normal 81-99 [facility] Comment on above: Performed By: #### L 500.2500, L100.0500 ####[facility] [address] [place], [address] Platelet mean volume (Bld) [Entitic vol] 9.2 fL Normal 6.2-12.[address] [facility] Comment on above: Performed By: #### L 500.2500, L100.0500 ####[facility] [address] [place], [address] Platelets (Bld) [#/Vol] 321 10*3/uL Normal 150-[address] [facility] Comment on above: Performed By: #### L 500.2500, L100.0500 ####[facility] [address] [place], [address] RBC (Bld) [#/Vol] 4.04 10*6/uL Low 4.2-5.4 [facility] Comment on above: Performed By: #### L 500.2500, L100.0500 ####[facility] [address] [place], [address] RDW SD 52.5 fl High 35.1-43.[address] [facility] Comment on above: Performed By: #### L 500.2500, L100.0500 ####[facility] [address] [place], [address] WBC (Bld) [#/Vol] 6.5 10*3/uL Normal 4.4-11.0 [facility] Comment on above: Performed By: #### L 500.2500, L100.0500 ####[facility] [address] [place], [address] Abdomen/Pelvis without Conto n 03-25-2024 Abdomen/Pelvis without Cont [facility] Imaging Services [address] [place] [address] Abdomen/Pelvis without Cont MR#: [id number] Acct: [id number] Name: ANTONIO GUPTA Rep #: [id number] : 1940 F 83 From: Albert brennan MD PCP: Dr. Victor M Rocha MD Status: ADM IN Study: Abdomen/Pelvis without Cont Date of Exam: 03/13 10/03 Exam# [id number] Ordering Dr: Juice Elizabeth DO [id number] INDICATION: worsening abdominal/flank pain EXAMINATION: CT Abdomen [...] Elizabeth DO; Dr. Victor M Rocha MD Coating Manager: Signed Normal [facility] BNP,B-Type NATRIURETIC PEPTI Kiesha 03-25-2024 Natriuretic peptide B (Bld) [Mass/Vol] 281.5 pg/mL High 0-[address] [facility] Comment on above: Performed By: #### L 501.4020, L500.4050, L503.6620, L100.0100 #### [facility] Laboratory [address] [place], [address] Blood Gases by [facility] 024 MANJU TEST Positive Normal [facility] Comment on above: Performed By: #### L 501.4020, L500.4050, L503.6620, L100.0100 #### [facility] Laboratory [address] [place], [address] Base excess Calc (Bld) [Moles/Vol] 2 mmol/L Normal -2 to +[address] [facility] Comment on above: Performed By: #### L 501.4020, L500.4050, L503.6620, L100.0100 #### [facility] Laboratory [address] [place], [address] Blood Gas Type ART [facility] Comment on above: Performed By: #### L 501.4020, L500.4050, L503.6620, L100.0100 #### [facility] Laboratory [address] [place], [address] CO2 [Moles/Vol] 27 mmol/L Normal [facility] Comment on above: Performed By: #### L 501.4020, L500.4050, L503.6620, L100.0100 #### [facility] Laboratory [address] [place], [address] FI02 6.0 [facility] Comment on above: Performed By: #### L 501.4020, L500.4050, L503.6620, L100.0100 #### [facility] Laboratory [address] [place], [address] HCO3 (Bld) [Moles/Vol] 26.2 mmol/L High 22-26 [facility] Comment on above: Performed By: #### L 501.4020, L500.4050, L503.6620, L100.0100 #### [facility] Laboratory [address] [place], [address] Mode Not entered [facility] Comment on above: Performed By: #### L 501.4020, L500.4050, L503.6620, L100.0100 #### [facility] Laboratory [address] [place], [address] O2 Delivery Dev Cannula Normal [facility] Comment on above: Performed By: #### L 501.4020, L500.4050, L503.6620, L100.0100 #### [facility] Laboratory [address] [place], [address] pCO2 39.7 mmHg Normal 35-[address] [facility] Comment on above: Performed By: #### L 501.4020, L500.4050, L503.6620, L100.0100 #### [facility] Laboratory [address] [place], [address] pH (Bld) 7.43 [pH] Normal 7.35-7.[address] [facility] Comment on above: Performed By: #### L 501.4020, L500.4050, L503.6620, L100.0100 #### [facility] Laboratory [address] [place], [address] PO2 57 mmHG Low 75-[address] [facility] Comment on above: Performed By: #### L 501.4020, L500.4050, L503.6620, L100.0100 #### [facility] Laboratory [address] [place], [address] SITE R Radial Normal [facility] Comment on above: Performed By: #### L 501.4020, L500.4050, L503.6620, L100.0100 #### [facility] Laboratory [address] [place], [address] SO2 90 Low 95-[address] [facility] Comment on above: Performed By: #### L 501.4020, L500.4050, L503.6620, L100.0100 #### [facility] Laboratory [address] [place], [address] CBC W/Diff, Automatedon 09- Absolute Lymph 0.96 X10 3/uL Normal 0.83-4.[address] [facility] Comment on above: Performed By: #### L 501.4020, L500.4050, L503.6620, L100.0100 #### [facility] Laboratory [address] [place], [address] Absolute Neut 6.6 X10 3/uL Normal 2.0-7.[address] [facility] Comment on above: Performed By: #### L 501.4020, L500.4050, L503.6620, L100.0100 #### [facility] Laboratory [address] [place], [address] Basophils/100 WBC (Bld) 0.5 % Normal 0-1 [facility] Comment on above: Performed By: #### L 501.4020, L500.4050, L503.6620, L100.0100 #### [facility] Laboratory [address] [place], [address] Eosinophils/100 WBC (Bld) 2.3 % Normal 0-[address] [facility] Comment on above: Performed By: #### L 501.4020, L500.4050, L503.6620, L100.0100 #### [facility] Laboratory [address] [place], [address] Erythrocyte distribution width (RBC) [Ratio] 16.7 % High 11.6-14.[address] [facility] Comment on above: Performed By: #### L 501.4020, L500.4050, L503.6620, L100.0100 #### [facility] Laboratory [address] [place], [address] Hematocrit (Bld) [Volume fraction] 39.0 % Normal 37-[address] [facility] Comment on above: Performed By: #### L 501.4020, L500.4050, L503.6620, L100.0100 #### [facility] Laboratory [address] [place], [address] Hemoglobin (Bld) [Mass/Vol] 12.0 g/dL Normal 12.0-15.[address] [facility] Comment on above: Performed By: #### L 501.4020, L500.4050, L503.6620, L100.0100 #### [facility] Laboratory [address] [place], [address] IG% 0.300 Normal 0.0-0.[address] [facility] Comment on above: Result Comment: IG% - Immature Granulocytes (promyelocytes, myelocytes and metamyelocytes) > 1% indicates that a LEFT SHIFT is Present. Performed By: #### L 501.4020, L500.4050, L503.6620, L100.0100 #### [facility] Laboratory [address] [place], [address] Lymphocytes/100 WBC (Bld) 11.2 % Low 19-[address] [facility] Comment on above: Performed By: #### L 501.4020, L500.4050, L503.6620, L100.0100 #### [facility] Laboratory [address] [place], [address] MCH (RBC) [Entitic mass] 26.7 pg Low 27.0-32.[address] [facility] Comment on above: Performed By: #### L 501.4020, L500.4050, L503.6620, L100.0100 #### [facility] Laboratory [address] [place], [address] MCHC (RBC) [Mass/Vol] 30.8 g/dL Low 32-36 [facility] Comment on above: Performed By: #### L 501.4020, L500.4050, L503.6620, L100.0100 #### [facility] Laboratory [address] [place], [address] MCV (RBC) [Entitic vol] 86.9 fL Normal 81-99 [facility] Comment on above: Performed By: #### L 501.4020, L500.4050, L503.6620, L100.0100 #### [facility] Laboratory [address] [place], [address] Monocytes/100 WBC (Bld) 9.3 % Normal 0-10 [facility] Comment on above: Performed By: #### L 501.4020, L500.4050, L503.6620, L100.0100 #### [facility] Laboratory [address] [place], [address] Neutrophils/100 WBC (Bld) 76.4 % High 47-[address] [facility] Comment on above: Performed By: #### L 501.4020, L500.4050, L503.6620, L100.0100 #### [facility] Laboratory [address] [place], [address] Nucleated RBC (Bld) [#/Vol] 0 10*3/uL Normal 0-[address] [facility] Comment on above: Performed By: #### L 501.4020, L500.4050, L503.6620, L100.0100 #### [facility] Laboratory [address] [place], [address] Platelet mean volume (Bld) [Entitic vol] 9.7 fL Normal 6.2-12.[address] [facility] Comment on above: Performed By: #### L 501.4020, L500.4050, L503.6620, L100.0100 #### [facility] Laboratory [address] [place], [address] Platelets (Bld) [#/Vol] 385 10*3/uL Normal 150-[address] [facility] Comment on above: Performed By: #### L 501.4020, L500.4050, L503.6620, L100.0100 #### [facility] Laboratory [address] [place], [address] RBC (Bld) [#/Vol] 4.49 10*6/uL Normal 4.2-5.4 [facility] Comment on above: Performed By: #### L 501.4020, L500.4050, L503.6620, L100.0100 #### [facility] Laboratory [address] [place], [address] RDW SD 52.8 fl High 35.1-43.[address] [facility] Comment on above: Performed By: #### L 501.4020, L500.4050, L503.6620, L100.0100 #### [facility] Laboratory [address] [place], [address] WBC (Bld) [#/Vol] 8.6 10*3/uL Normal 4.4-11.0 [facility] Comment on above: Performed By: #### L 501.4020, L500.4050, L503.6620, L100.0100 #### [facility] Laboratory [address] [place], [address] CNOVSPon 03-25-2024 CNOVSP Visit (SP) Office (HEMAWS) ANTOINO GUPTA ([id number]) 1940 F Date Time Provider Department 03/25/24 [...] since 2015. 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 Root for increased fatigue and was [...] taking aspirin along with Xarelto. Has h/o [place] (PCI with stents), atrial fibrillation (on rivaroxaban), [...] Review (MPA) Reviewed by Yong Altamirano MD [place] [facility], Serum 3.3 - 19.4 mg/L 70.4 [...] she is hypoxemic. Plan: -To ED at [facility]. -Spoke to Dr. Dodge. Portions of this documentation were copied and pasted from previous office visit notes in order to provide a cohesive (more content not included)... Normal [facility] Chest 1 View (Portable)on Chest 1 View (Portable) [facility] Imaging Services [address] [place] [id number] Chest 1 View (Portable) MR#: [id number] Acct: [id number] Name: ANTONIO GUPTA Rep #: [id number] : 1940 F 83 From: Bello snyder MD PCP: Dr. Victor M Rocha MD Status: PRE ER Study: Chest 1 View (Portable) Date of Exam: 03/25/24 Exam# [id number] Ordering Dr: Geoffrey Dodge MD [id number] STUDY: X-RAY CHEST REASON FOR EXAM: Female, [...] M Rocha MD; Dr. Geoffrey Dodge MD Coating Manager: Signed Normal [facility] Comprehensive Metabolic Prof ilon 03-25-2024 Albumin [Mass/Vol] 3.3 g/dL Normal 3.2-5.0 [facility] Comment on above: Order Comment: 'TROP ' Serial specimen #1, #2 or #3: 1 Performed By: #### L 501.4020, L500.4050, L503.6620, L100.0100 #### [facility] Laboratory [address] [place], [address] Albumin/Globulin [Mass ratio] 0.6 {ratio} Low 0.9-2.[address] [facility] Comment on above: Order Comment: 'TROP ' Serial specimen #1, #2 or #3: 1 Performed By: #### L 501.4020, L500.4050, L503.6620, L100.0100 #### [facility] Laboratory [address] [place], [address] ALK P 161 U/L High 45-[address] [facility] Comment on above: Order Comment: 'TROP ' Serial specimen #1, #2 or #3: 1 Performed By: #### L 501.4020, L500.4050, L503.6620, L100.0100 #### [facility] Laboratory [address] [place], [address] ALT [Catalytic activity/Vol] 10 U/L Low 13-[address] [facility] Comment on above: Order Comment: 'TROP ' Serial specimen #1, #2 or #3: 1 Performed By: #### L 501.4020, L500.4050, L503.6620, L100.0100 #### [facility] Laboratory [address] [place], [address] AST [Catalytic activity/Vol] 17 U/L Normal 15-[address] [facility] Comment on above: Order Comment: 'TROP ' Serial specimen #1, #2 or #3: 1 Performed By: #### L 501.4020, L500.4050, L503.6620, L100.0100 #### [facility] Laboratory [address] [place], [address] Bilirubin [Mass/Vol] 0.50 mg/dL Normal 0.20-1.[address] [facility] Comment on above: Order Comment: 'TROP ' Serial specimen #1, #2 or #3: 1 Result Comment: For patients on eltrombopag therapy, use of Dimension [place] TBIL is not recommended. Performed By: #### L 501.4020, L500.4050, L503.6620, L100.0100 #### [facility] Laboratory [address] [place], [address] BUN/CRE 9.5 RATIO Low 10-[address] [facility] Comment on above: Order Comment: 'TROP ' Serial specimen #1, #2 or #3: 1 Performed By: #### L 501.4020, L500.4050, L503.6620, L100.0100 #### [facility] Laboratory [address] [place], [address] CA,Total 9.4 mg/dL Normal 8.5-10.[address] [facility] Comment on above: Order Comment: 'TROP ' Serial specimen #1, #2 or #3: 1 Performed By: #### L 501.4020, L500.4050, L503.6620, L100.0100 #### [facility] Laboratory [address] [place], [address] Chloride [Moles/Vol] 99 mmol/L Normal 98-[address] [facility] Comment on above: Order Comment: 'TROP ' Serial specimen #1, #2 or #3: 1 Performed By: #### L 501.4020, L500.4050, L503.6620, L100.0100 #### [facility] Laboratory [address] [place], [address] CO2 [Moles/Vol] 24.0 mmol/L Normal 21.0-32.[address] [facility] Comment on above: Order Comment: 'TROP ' Serial specimen #1, #2 or #3: 1 Performed By: #### L 501.4020, L500.4050, L503.6620, L100.0100 #### [facility] Laboratory [address] [place], [address] Creatinine [Mass/Vol] 1.37 mg/dL High 0.55-1.02 [facility] Comment on above: Order Comment: 'TROP ' Serial specimen #1, #2 or #3: 1 Result Comment: The validity of the calculated GFR GFRAA in patients over 70 years has not been determined. Clinical correlation is essential. Performed By: #### L 501.4020, L500.4050, L503.6620, L100.0100 #### [facility] Laboratory [address] [place], [address] ECRCL 36.05 ml/min Normal [facility] Comment on above: Order Comment: 'TROP ' Serial specimen #1, #2 or #3: 1 Performed By: #### L 501.4020, L500.4050, L503.6620, L100.0100 #### [facility] Laboratory [address] [place], [address] EST GFR - AA 47 mL/min Low >[address] [facility] Comment on above: Order Comment: 'TROP ' Serial specimen #1, #2 or #3: 1 Result Comment: Afri can [place] GFR Calc Performed By: #### L 501.4020, L500.4050, L503.6620, L100.0100 #### [facility] Laboratory [address] [place], [address] GAP 9 Normal 5-[address] [facility] Comment on above: Order Comment: 'TROP ' Serial specimen #1, #2 or #3: 1 Performed By: #### L 501.4020, L500.4050, L503.6620, L100.0100 #### [facility] Laboratory [address] [place], [address] GFR/1.73 sq M.predicted among non-blacks MDRD (S/P/Bld) [Vol rate/Area] 39 mL/min/{1.73_m2} Low >[address] [facility] Comment on above: Order Comment: 'TROP ' Serial specimen #1, #2 or #3: 1 Result Comment: Non- GFR Calc Performed By: #### L 501.4020, L500.4050, L503.6620, L100.0100 #### [facility] [address] [place], [address] Globulin (S) [Mass/Vol] 5.8 g/dL High 2.2-4.2 [facility] Comment on above: Order Comment: 'TROP ' Serial specimen #1, #2 or #3: 1 Performed By: #### L 501.4020, L500.4050, L503.6620, L100.0100 #### [facility] [address] [place], [address] Glucose [Mass/Vol] 170 mg/dL High 74-106 [facility] Comment on above: Order Comment: 'TROP ' Serial specimen #1, #2 or #3: 1 Result Comment: Fast ing Glucose result greater than or equal to 126 mg/dL suggests DIABETES MELLITUS per A.D.A. criteria. Performed By: #### L 501.4020, L500.4050, L503.6620, L100.0100 #### [facility] [address] [place], [address] Potassium [Moles/Vol] 2.9 mmol/L Low 3.5-5.1 [facility] Comment on above: Order Comment: 'TROP ' Serial specimen #1, #2 or #3: 1 Performed By: #### L 501.4020, L500.4050, L503.6620, L100.0100 #### [facility] [address] [place], [address] Sodium [Moles/Vol] 132 mmol/L Low 136-145 [facility] Comment on above: Order Comment: 'TROP ' Serial specimen #1, #2 or #3: 1 Performed By: #### L 501.4020, L500.4050, L503.6620, L100.0100 #### [facility] [address] [place], [address] T PROT 9.1 g/dL High 6.4-8.[address] [facility] Comment on above: Order Comment: 'TROP ' Serial specimen #1, #2 or #3: 1 Performed By: #### L 501.4020, L500.4050, L503.6620, L100.0100 #### [facility] [address] [place], [address] Urea nitrogen [Mass/Vol] 13 mg/dL Normal 7-[address] [facility] Comment on above: Order Comment: 'TROP ' Serial specimen #1, #2 or #3: 1 Performed By: #### L 501.4020, L500.4050, L503.6620, L100.0100 #### [facility] [address] [place], [address] Echo Limited w/Contraston Echo Limited w/Contrast [facility] [address] [place] [address] Echo Limited w/Contrast 03/25/24 1610 MR#: [id number] Acct: [id number] Name: ANTONIO GUPTA Rep #: [id number] : 1940 83 From: Annabella Gracia MD Attending Dr: Dr. Juice Elizabeth DO [...] 45-50 %. Unable to assess diastolic dysfunction. [place] : Akinetic. Right Ventricle Normal RV size. [...] 45-50 %. Unable to assess diastolic dysfunction. [place] : Akinetic. Moderate (2+) mitral valve insufficiency. Mild (1+) aortic valve insufficiency. Ordering Physician: Juice Elizabeth Referring Physician: Victor M Rocha Performed By: Phan Rodrigez, HEMANT, RVT 03/26/24 1008 Date Annabella Garcia MD CC: Dr. Juice Elizabeth DO; Dr. Victor M Rocha MD Date Dictated: 03/25/24 1610 Date Transcribed: 03/26/24 1008 Coating Manager: Signed Normal [facility] Emergency Department Summary on 03-25-2024 Emergency Department Summary [facility] Medical Records Department [address] [place] [address] Emergency Department Summary 03/25/24 MR#: [id number] Acct: [id number] Name: ANTONIO GUPTA Rep #: [id number] : 1940 83 From: Geoffrey Dodge MD [...] arterial hypertension Atherosclerosis of coronary artery of [place] heart without angina pectoris Paroxysmal atrial fibrillation [...] content not included)... Normal [facility] H AND P Exam - Hospitaliston 03-25-2024 H&P Exam - Hospitalist [facility] Medical Records Department [address] [place] [address] H P Exam - Hospitalist 03/25/24 1219 MR#: [id number] Acct: [id number] Name: ANTONIO GUPTA Rep #: [id number] : 1940 83 From: Juice Elizabeth DO PCP: Dr. Victor M Rocha MD Status:ADM IN Location: [place] [address]-1 HPI - General General Date of Admission: 03/25/24 Date of Service: 03/25/24 Chief Complaint: Worsening shortness of breath with hypoxia HPI Narrative ANTONIO GUPTA, is a 83 F who presented to [facility] ED on 03/25/2024 with worsening shortness [...] diverticulitis. Was then admitted for further management. [facility] Medical History Iron deficiency anemia History of non-ST elevation myocardial infarction (NSTEMI) (2013) Longstanding persistent atrial fibrillation Essential (primary) hypertension Anxiety Hypothyroidism Hyperlipidemia Secondary pulmonary arterial hypertension Atherosclerosis of coronary artery of [place] heart without angina pectoris Paroxysmal atrial fibrillation Paroxysmal atrial flutter Sick sinus syndrome Home Medications ???Medication ???Instru (more content not included)... Normal [facility] L501.4020on 03-25-2024 TROPONIN-I HS 12 pg/mL Normal 3.0-54.[address] [facility] Comment on above: Order Comment: 'TROP ' Serial specimen #1, #2 or #3: 1 Result Comment: Pleroxy younger Note: New Test Units and Gender Specific Reference Ranges. For more information see Policy Stat Procedure [place] High Sensitivity Troponin (TNIH) and attachments. Performed By: #### L 501.4020, L500.4050, L503.6620, L100.0100 #### [facility] [address] [place], [address] Spine Lumbar without Contras ton 03-25-2024 Spine Lumbar without Contrast [facility] Imaging Services [address] [address] Spine Lumbar without Contrast MR#: [id number] Acct: [id number] Name: ANTONIO GUPTA Rep #: [id number] : 1940 F 83 From: Albert brennan MD PCP: Dr. Victor M Rocha MD Status: ADM IN Study: Spine Lumbar without Contrast Date of Exam: Exam# [id number] Ordering Dr: Juice Elizabeth DO [id number] INDICATION: known compression fxs w/ worsening pain [...] Elizabeth DO; Dr. Victor M Rocha MD Coating Manager: Signed Normal [facility] Spine Thoracic without Contr ason 03-25-2024 Spine Thoracic without Contras [facility] Imaging Services [address] [place], [place] [address] Spine Thoracic without Contras MR#: [id number] Acct: [id number] Name: ANTONIO GUPTA Rep #: [id number] : 1940 F 83 From: Albert brennan MD PCP: Dr. Victor M Rocha MD Status: ADM IN Study: Spine Thoracic without Contras Date of Exam: 0 03/25/24 Exam# [id number] Ordering Dr: Juice Elizabeth DO ADDENDUM by Alebrt Nicolas MD on 03/25/24 at 1655 ======== ADDENDUM ======== [id number] Please disregard original report. Here is the [...] on 03/25/24 at 1654 ======== ADDENDUM ======== [id number] Please disregard original report. Here is the [...] on 03/25/24 at 1654 ======== ADDENDUM ======== [id number] Please disregard original report. Here is the [...] Albert Nicolas MD on 03/25/24 at 1616 [id number] EXAMINATION : Head CT w/out contrast HISTORY [...] content not included)... Normal [facility] CNCOon 03-24-2024 CNCO Letter Text Normal [facility] Decalcification bone/plaqueo n 03-22-2024 Decalcification bone/plaque -------- Patient Age/Sex Location Account Attending Physician -------- ANTONIO GUPTA 83/F LABSPEC [id number] Dr. Stepan Ott MD -------- Specimen: [id number] Received: 03/22/24 Status: ROGER Shruti Num: [id number] Spec Type: Bone Subm Dr: Dr. Stepan [...] one cassette after decalcification. [place]. 03/23/2024 TC:5 [facility]:[id number] -------- Patient Age/Sex Location Account Attending Physician -------- ANTONIO GUPTA 83/F LABSPEC [id number] Dr. Stepan Ott MD -------- Signed (signature on file) Dr. Amrik Watson, DO 03/25/24 0955 -------- Normal [facility] Comment on above: Performed By: #### P DEC ####[facility] [id number] [place], [place], [address] CT WB SKULL TO KNEE WO IVCON on 03-12-2024 CT WB SKULL TO KNEE WO IVCON * * *Final Report* * * DATE OF EXAM: Mar 12 2024 4:08PM [facility] 7 - CT WB SKULL TO KNEE [...] (more content not included)... Invalid Interpretation Code 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 Root for increased fatigue and was [...] taking aspirin along with Xarelto. Has h/o [place] (PCI with stents), atrial fibrillation (on rivaroxaban), [...] which included preparing to see the patient, moqn-ut-rovt patient care, completing clinical documentation, obtaining and/or [...] WHOLE BODY SKULL TO KNEE WO IVCON [[id number]] Order #: [id number] FUTURE XR BONE SURVEY ROUTINE [[id number]] Order #: [id number] FUTURE Follow-u (more content not included)... Normal [facility] XR BONE SURVEY ROUTINEon XR BONE SURVEY [...] T8 compression fracture. No suspicious bony lesion. Coating Manager: PSCB Transcribe Date/Time: Mar 02 2024 8:03P Dictated by : VICTORINA ALVES MD This examination was interpreted and the report reviewed and electronically signed by: VICTORINA ALVES MD on Mar 02 2024 8:05PM EST [id number] Normal [facility] CBC W Auto Differential pane l (Bld)on 02-24-2024 Basophils (Bld) [#/Vol] 0.04 10*3/uL Normal <0.11 [facility] Comment on above: Order Comment: Speci men Type: BLOOD SPECIMENOrdering Facility: [facility] [place] Address: [address] [place] [address] Performed By: #### 5 7021-8 ####[facility] MILLWMOLIA [id number] [place] [address] [place] Basophils/100 WBC (Bld) 0.6 % Normal [facility] Comment on above: Order Comment: Speci men Type: BLOOD SPECIMENOrdering Facility: [facility] [place] Address: [address] [place] [address] Performed By: #### 5 7021-8 ####[facility] [id number] [place] [address] [place] Differential cell count method Nom (Bld) Auto Normal [facility] Comment on above: Order Comment: Speci men Type: BLOOD SPECIMENOrdering Facility: [facility] [place] Address: [address] [place] [address] Performed By: #### 5 7021-8 ####[facility] [id number] [place] [address] [place] Eosinophils (Bld) [#/Vol] 0.17 10*3/uL Normal <0.46 [facility] Comment on above: Order Comment: Speci men Type: BLOOD SPECIMENOrdering Facility: [facility] [place] Address: [address] [place] [address] Performed By: #### 5 7021-8 ####[facility] [id number] [place] [address] [place] Eosinophils/100 WBC (Bld) 2.5 % Normal [facility] Comment on above: Order Comment: Speci men Type: BLOOD SPECIMENOrdering Facility: [facility] [place] Address: [address] [place] [address] Performed By: #### 5 7021-8 ####[facility] NABEELWNCLIA [id number] [place] [address] [place] Erythrocyte distribution width (RBC) [Ratio] 17.3 % High 11.5-15.0 [facility] Comment on above: Order Comment: Speci men Type: BLOOD SPECIMENOrdering Facility: [facility] [place] Address: [address] [place] [address] Performed By: #### 5 7021-8 ####[facility] RIVERSIDENCLIA [id number] [place] [address] [place] Hematocrit (Bld) [Volume fraction] 39.0 % Normal 36.0-46.0 [facility] Comment on above: Order Comment: Speci men Type: BLOOD SPECIMENOrdering Facility: [facility] [place] Address: [address] [place] [address] Performed By: #### 5 7021-8 ####[facility] RIVERSIDENCLIA [id number] [place] [address] [place] Hemoglobin (Bld) [Mass/Vol] 12.1 g/dL Normal 11.5-15.5 [facility] Comment on above: Order Comment: Speci men Type: BLOOD SPECIMENOrdering Facility: [facility] [place] Address: [address] [place] [address] Performed By: #### 5 7021-8 ####[facility] ERWNCLIA [id number] [place] [address] [place] Immature granulocytes (Bld) [#/Vol] 0.03 10*3/uL Normal <0.10 [facility] Comment on above: Order Comment: Speci men Type: BLOOD SPECIMENOrdering Facility: [facility] [place] Address: [address] [place] [address] Performed By: #### 5 7021-8 ####[facility] [id number] [place] [address] [place] Immature granulocytes/100 WBC (Bld) 0.4 % Normal [facility] Comment on above: Order Comment: Speci men Type: BLOOD SPECIMENOrdering Facility: [facility] [place] Address: [address] [place] [address] Performed By: #### 5 7021-8 ####[facility] [id number] [place] [address] [place] Lymphocytes (Bld) [#/Vol] 1.20 10*3/uL Normal 1.00-4.00 [facility] Comment on above: Order Comment: Speci men Type: BLOOD SPECIMENOrdering Facility: [facility] [place] Address: [address] [place] [address] Performed By: #### 5 7021-8 ####[facility] [id number] [place] [address] [place] Lymphocytes/100 WBC (Bld) 17.7 % Normal [facility] Comment on above: Order Comment: Speci men Type: BLOOD SPECIMENOrdering Facility: [facility] [place] Address: [address] [place] [address] Performed By: #### 5 7021-8 ####[facility] [id number] [place] [address] [place] MCH (RBC) [Entitic mass] 26.4 pg Normal 26.0-34.0 [facility] Comment on above: Order Comment: Speci men Type: BLOOD SPECIMENOrdering Facility: [facility] [place] Address: [address] [place] [address] Performed By: #### 5 7021-8 ####[facility] [id number] [place] [address] [place] MCHC (RBC) [Mass/Vol] 31.0 g/dL Normal 30.5-36.0 [facility] Comment on above: Order Comment: Speci men Type: BLOOD SPECIMENOrdering Facility: [facility] [place] Address: [address] [place] [address] Performed By: #### 5 7021-8 ####[facility] [id number] [place] [address] [place] MCV (RBC) [Entitic vol] 85.0 fL Normal 80.0-100.0 C [facility] Comment on above: Order Comment: Speci men Type: BLOOD SPECIMENOrdering Facility: [facility] [place] Address: [address] [place] [address] Performed By: #### 5 7021-8 ####[facility] [id number] [place] [address] [place] Monocytes (Bld) [#/Vol] 0.57 10*3/uL Normal <0.87 [facility] Comment on above: Order Comment: Speci men Type: BLOOD SPECIMENOrdering Facility: [facility] [place] Address: [address] [place] [address] Performed By: #### 5 7021-8 ####[facility] RIVERSIDENCLIA [id number] [place] [address] [place] Monocytes/100 WBC (Bld) 8.4 % Normal C [facility] Comment on above: Order Comment: Speci men Type: BLOOD SPECIMENOrdering Facility: [facility] [place] Address: [address] [place] [address] Performed By: #### 5 7021-8 ####[facility] RIVERSIDENCLIA [id number] [place] [address] [place] Neutrophils (Bld) [#/Vol] 4.77 10*3/uL Normal 1.45-7.50 [facility] Comment on above: Order Comment: Speci men Type: BLOOD SPECIMENOrdering Facility: [facility] [place] Address: [address] [place] [address] Performed By: #### 5 7021-8 ####[facility] NABEELWGLENLIA [id number] [address] STATES [facility] Neutrophils/100 WBC (Bld) 70.4 % Normal [facility] Comment on above: Order Comment: Speci men Type: BLOOD SPECIMENOrdering Facility: [facility] [place] Address: [address] [place] [address] Performed By: #### 5 7021-8 ####[facility] RIVERSIDENCLIA [id number] [place] [address] [place] Nucleated RBC (Bld) [#/Vol] 10*3/uL Normal <0.01 [facility] Comment on above: Order Comment: Speci men Type: BLOOD SPECIMENOrdering Facility: [facility] [place] Address: [address] [place] [address] Performed By: #### 5 7021-8 ####[facility] RIVERSIDENCLIA [id number] [place] [address] [place] Nucleated RBC/100 WBC (Bld) [Ratio] 0.0 /100 WBC Normal [facility] Comment on above: Order Comment: Speci men Type: BLOOD SPECIMENOrdering Facility: [facility] [place] Address: [address] [place] [address] Performed By: #### 5 7021-8 ####[facility] [id number] [place] [address] [place] Platelet mean volume (Bld) [Entitic vol] 9.2 fL Normal 9.0-12.7 [facility] Comment on above: Order Comment: Speci men Type: BLOOD SPECIMENOrdering Facility: [facility] [place] Address: [address] [place] [address] Performed By: #### 5 7021-8 ####[facility] [id number] [place] [address] [place] Platelets (Bld) [#/Vol] 394 10*3/uL Normal 150-400 [facility] Comment on above: Order Comment: Speci men Type: BLOOD SPECIMENOrdering Facility: [facility] [place] Address: [address] [place] [address] Performed By: #### 5 7021-8 ####[facility] RIVERSIDENCCONSUELO [id number] [place] [address] [place] RBC (Bld) [#/Vol] 4.59 10*6/uL Normal 3.90-5.20 [facility] Comment on above: Order Comment: Speci men Type: BLOOD SPECIMENOrdering Facility: [facility] [place] Address: [address] [place] [address] Performed By: #### 5 7021-8 ####[facility] RIVERSIDETERESSA [id number] [place] [address] [place] WBC (Bld) [#/Vol] 6.78 10*3/uL Normal 3.70-11.00 [facility] Comment on above: Order Comment: Speci men Type: BLOOD SPECIMENOrdering Facility: [facility] [place] Address: [address] [place] [address] Performed By: #### 5 7021-8 ####[facility] RIVERSIDEGLENLIA [id number] [place] [address] [place] Comprehensive metabolic 2000 panelon 02-24-2024 Albumin [Mass/Vol] 3.6 g/dL Low 3.9-4.9 [facility] Comment on above: Order Comment: Speci men Type: BLOOD SPECIMENOrdering Facility: [facility] [place] Address: [address] [place] [address] Performed By: #### 2 4323-8 ####[facility] RIVERSIDENCLIRoxy [id number] [place] [id number] [place] ALP [Catalytic activity/Vol] 143 U/L High 34-123 [facility] Comment on above: Order Comment: Speci men Type: BLOOD SPECIMENOrdering Facility: [facility] [place] Address: [address] [place] [address] Performed By: #### 2 4323-8 ####[facility] MILLTOWNCLIA [id number] [place] [address] [place] ALT [Catalytic activity/Vol] 6 U/L Low 7-38 [facility] Comment on above: Order Comment: Speci men Type: BLOOD SPECIMENOrdering Facility: [facility] [place] Address: [address] [place] [address] Performed By: #### 2 4323-8 ####[facility] RIVERSIDENCLIA [id number] [place] [address] [place] Anion gap [Moles/Vol] 13 mmol/L Normal 8-15 [facility] Comment on above: Order Comment: Speci men Type: BLOOD SPECIMENOrdering Facility: [facility] [place] Address: [address] [place] [address] Performed By: #### 2 4323-8 ####[facility] ALLENKER[facility] MEMORIAL HOSPITALNCLIA [id number] [place] [address] [place] AST [Catalytic activity/Vol] 14 U/L Normal 13-35 [facility] Comment on above: Order Comment: Speci men Type: BLOOD SPECIMENOrdering Facility: [facility] [place] Address: [address] [place] [address] Performed By: #### 2 4323-8 ####[facility] MILLEQUINUNKNCLIA [id number] [place] [address] [place] Bilirubin [Mass/Vol] 0.4 mg/dL Normal 0.2-1.3 [facility] Comment on above: Order Comment: Speci men Type: BLOOD SPECIMENOrdering Facility: [facility] [place] Address: [address] [place] [address] Performed By: #### 2 4323-8 ####[facility] MILLTOWNCLIA [id number] [place] [address] [place] Calcium [Mass/Vol] 9.7 mg/dL Normal 8.5-10.2 [facility] Comment on above: Order Comment: Speci men Type: BLOOD SPECIMENOrdering Facility: [facility] [place] Address: [address] [place] [address] Performed By: #### 2 4323-8 ####[facility] MILLTOWNCLIA [id number] [place] [address] [place] Chloride [Moles/Vol] 101 mmol/L Normal 98-107 [facility] Comment on above: Order Comment: Speci men Type: BLOOD SPECIMENOrdering Facility: [facility] [place] Address: [address] [place] [address] Performed By: #### 2 4323-8 ####[facility] MILLTOWNCLIA [id number] [place] [address] [place] CO2 [Moles/Vol] 21 mmol/L Low 22-30 [facility] Comment on above: Order Comment: Speci men Type: BLOOD SPECIMENOrdering Facility: [facility] [place] Address: [address] [place] [address] Performed By: #### 2 4323-8 ####[facility] MILLTOWNCLIA [id number] [place] [address] [place] Creatinine [Mass/Vol] 1.09 mg/dL High 0.58-0.96 [facility] Comment on above: Order Comment: Speci men Type: BLOOD SPECIMENOrdering Facility: [facility] [place] Address: [address] [place] [address] Performed By: #### 2 4323-8 ####[facility] MILLTOWNCLIA [id number] [place] [address] [place] Creatinine and Glomerular filtration rate.predicted panel (S/P/Bld) 50 mL/min/1.73m??? Low >=60 [facility] Comment on above: Order Comment: Demetrio lorenzo Type: BLOOD SPECIMENOrdering Facility: [facility] [place] Address: [address] [place] [address] Result Comment: Martha mated Glomerular Filtration Rate [...] actual GFR. Performed By: #### 2 4323-8 ####[facility] [id number] [place] [address] [place] Glucose [Mass/Vol] 157 mg/dL High 74-99 [facility] Comment on above: Order Comment: Demetrio lorenzo Type: BLOOD SPECIMENOrdering Facility: [facility] [place] Address: [address] [place] [address] Result Comment: The [place] [employer] (ADA) provides guidance for cutoff [...] Standards of Medical Care in Diabetes 2016, [place] [employer]. Diabetes Care. 2016.39(Suppl 1). Performed By: #### 2 4323-8 ####[facility] [id number] [place] [address] [place] Potassium [Moles/Vol] 3.1 mmol/L Low 3.7-5.1 [facility] Comment on above: Order Comment: Speci men Type: BLOOD SPECIMENOrdering Facility: [facility] [place] Address: [address] [place] [address] Performed By: #### 2 4323-8 ####[facility] MILLWNCLIA [id number] [place] [address] [place] Protein [Mass/Vol] 8.7 g/dL High 6.3-8.0 [facility] Comment on above: Order Comment: Speci men Type: BLOOD SPECIMENOrdering Facility: [facility] [place] Address: [address] [place] [address] Performed By: #### 2 4323-8 ####[facility] RIVERSIDENCLIA [id number] [place] [address] [place] Sodium [Moles/Vol] 135 mmol/L Low 136-144 [facility] Comment on above: Order Comment: Speci men Type: BLOOD SPECIMENOrdering Facility: [facility] [place] Address: [address] [place] [address] Performed By: #### 2 4323-8 ####[facility] RIVERSIDENCLIA [id number] [place] [address] [place] Urea nitrogen [Mass/Vol] 11 mg/dL Normal 7-21 [facility] Comment on above: Order Comment: Speci men Type: BLOOD SPECIMENOrdering Facility: [facility] [place] Address: [address] [place] [address] Performed By: #### 2 4323-8 ####[facility] RIVERSIDENCLIA [id number] [place] [address] [place] Ferritin SerPl-mCncon 2023 Ferritin [Mass/Vol] 34.1 ng/mL Normal 14.7-205.1 [facility] Comment on above: Order Comment: Speci men Type: BLOOD SPECIMENOrdering Facility: [facility] [place] Address: [address] [place] [address] Performed By: #### 5 0190-8, 2276-4 ####[facility] LABCLIA [id number] [place] [address] [place] Iron and Iron binding capaci ty panelon 02-24-2024 Iron [Mass/Vol] 27 ug/dL Low 41-186 [facility] Comment on above: Order Comment: Speci men Type: BLOOD SPECIMENOrdering Facility: [facility] [place] Address: [address] [place] [address] Performed By: #### 5 0190-8, 2275-4 ####[facility] LABCLIA [id number] [address] [place] Iron binding capacity [Mass/Vol] 321 ug/dL Normal 232-386 [facility] Comment on above: Order Comment: Speci men Type: BLOOD SPECIMENOrdering Facility: [facility] [place] Address: [address] [place] [address] Performed By: #### 5 0190-8, 2275-4 ####[facility] LABCLIA [id number] [address] [place] Iron/TIBC [Molar ratio] 8.4 % Low 15.0-57.0 C [facility] Comment on above: Order Comment: Speci men Type: BLOOD SPECIMENOrdering Facility: [facility] [place] Address: [address] [place] [address] Performed By: #### 5 0190-8, 2275-4 ####[facility] LABCLIA [id number] [place] [address] [place] Cardiology Visit Reporton Cardiology Visit Report [facility] [address] [place], [place] [address] OFFICE VISIT Date of Service: 02/18/24 MR#: [id number] Acct: [id number] Name: ANTONIO GUPTA Rep #: [id number] : 1940 Provider: LUIS FELIPE Bills Age/Sex: 83/F Location[place] [facility] [place] Status: Signed [facility] History of Present Illness Details: ANTONIO GUPTA, [...] 95 Intake Visit Reasons: 1 Y FU Signal Operator Required: No Is patient in pain?: No [...] arterial hypertension Atherosclerosis of coronary artery of nulato heart without angina pectoris Paroxysmal atrial fibrillation [...] frequent fal (more content not included)... Normal [facility] 02-16-2024 [facility] Office Visit (UCTR ) ANTONIO GUPTA ([id number]) 1940 F Date Time Provider Department 02/16/24 12:15 PM [facility] During your visit today, we recorded [...] her shirt. She has been putting some rlwj-xau-wxcmgst ointment on it and bandages. Has not tried anything else for symptoms. No fevers. No other complaint. PAST MEDICAL HISTORY No date: Coronary atherosclerosis of unspecified type of vessel, nulato or graft Comment: Stent x 2010 No [...] both eyes twice daily. blood sugar diagnostic (ImmusanT VERIO TEST STRIPS) test strip TEST BLOOD [...] Drug use: (more content not included)... Normal [facility] Emergency Department Summary on 02-06-2024 Emergency Department Summary [facility] Medical Records Department [address] [place] [address] Emergency Department Summary 02/06/24 MR#: [id number] Acct: [id number] Name: ANTONIO GUPTA Rep #: [id number] : 1940 83 From: Howard Sousa DO [...] she still has pain when she moves. [facility] Medical History Iron deficiency anemia History of non-ST elevation myocardial infarction (NSTEMI) (2013) Longstanding persistent atrial fibrillation Essential (primary) hypertension Anxiety Hypothyroidism Hyperlipidemia Secondary pulmonary arterial hypertension Atherosclerosis of coronary artery of nulato heart without angina pectoris Paroxysmal atrial fibrillation [...] content not included)... Normal [facility] Spine Lumbar without Contras ton 02-06-2024 Spine Lumbar without Contrast [facility] Imaging Services [address] [place], [place] [address] Spine Lumbar without Contrast MR#: [id number] Acct: [id number] Name: ANTONIO GUPTA Rep #: [id number] : 1940 F 83 From: Flako Camilo MD PCP: Dr. Victor M Rocha MD Status: REG ER Study: Spine Lumbar without Contrast Date of Exam: Exam# [id number] Ordering Dr: Howard Sousa DO [id number] EXAM: CT THORACIC AND LUMBAR SPINE WITHOUT [...] 14:57 EDT Reading Location ID and State: [address] [place] [address] , Service support , CC: Dr. Howard Sousa DO; Dr. Victor M Rocha MD Coating Manager: Signed Normal [facility] Spine Thoracic without Contr ason 02-06-2024 Spine Thoracic without Contras [facility] Imaging Services [address] [place] [address] Spine Thoracic without Contras MR#: [id number] Acct: [id number] Name: ANTONIO GUPTA Rep #: [id number] : 1940 F 83 From: Flako Camilo MD PCP: Dr. Victor M Rocha MD Status: REG ER Study: Spine Thoracic without Contras Date of Exam: 0 02/06/24 Exam# [id number] Ordering Dr: Howard Sousa DO [id number] EXAM: CT THORACIC AND LUMBAR SPINE WITHOUT [...] 14:56 EDT Reading Location ID and State: [facility] / [place] , Service support , CC: Dr. Howard Sousa DO; Dr. Victor M Rocha MD Coating Manager: Signed Normal [facility] UA DIP, URINE (POC)on 2023 BILIRUBIN UA (POCT) Negative Negative [facility] CLARITY UA (POCT) Cloudy [facility] COLOR UA (POCT) Dark yellow [facility] GLUCOSE UA (POCT) 500 mg/dL Abnormal Negative [facility] Hemoglobin Ql (U) Moderate Abnormal Negative [facility] Interpretation and review of laboratory results Abnormal [facility] KETONE UA (POCT) Negative Negative mg/dL [facility] LEUKOCYTES UA (POCT) Large Abnormal Negative [facility] NITRITE UA (POCT) Negative Negative [facility] PH UA (POCT) 6.5 4.5 - 8.0 [facility] Protein Ql (U) 30 mg/dL Abnormal Negative [facility] SPECIFIC GRAVITY UA (POCT) 1.015 1.005 - 1.030 [facility] UROBILINOGEN UA (POCT) 0.2 Olga l E.U./dL [facility] Location:[address], [place], [place], [id number] [place] [address] POINT OF CARE [facility] FERRITINon 11-18-2023 Ferritin [Mass/Vol] 18.9 ng/mL 14.7 - 2 05.1 ng/mL [facility] Ferritin [Mass/Vol]on 2023 Interpretation and review of laboratory results Normal [facility] Iron and Iron binding capaci ty panelon 11-18-2023 Interpretation and review of laboratory results Abnormal [facility] Iron [Mass/Vol] 19 ug/dL Low 41 - 186 ug/dL [facility] Iron binding capacity [Mass/Vol] 401 ug/dL High 232 - 386 ug/dL [facility] Iron/TIBC [Molar ratio] 4.7 % Low 15.0 - 57.0 % [facility] CBC W Auto Differential pane l (Bld)on 11-17-2023 Basophils (Bld) [#/Vol] 0.04 10*3/uL [facility] Basophils/100 WBC (Bld) 0.5 % C [facility] Differential cell count method Nom (Bld) Auto [facility] Eosinophils (Bld) [#/Vol] 0.15 10*3/uL [facility] Eosinophils/100 WBC (Bld) 1.9 % [facility] Erythrocyte distribution width (RBC) [Ratio] 14.8 % 11.5 - 15.0 % [facility] Hematocrit (Bld) [Volume fraction] 32.0 % Low 36.0 - 46.0 % [facility] Hemoglobin (Bld) [Mass/Vol] 9.5 g/dL Low 11.5 - 15.5 g/dL [facility] Immature granulocytes (Bld) [#/Vol] 0.03 10*3/uL [facility] Immature granulocytes/100 WBC (Bld) 0.4 % [facility] Interpretation and review of laboratory results Abnormal [facility] Lymphocytes (Bld) [#/Vol] 1.49 10*3/uL [facility] Lymphocytes/100 WBC (Bld) 18.8 % [facility] MCH (RBC) [Entitic mass] 24.9 pg Low 26.0 - 34.0 pg [facility] MCHC (RBC) [Mass/Vol] 29.7 g/dL Low 30.5 - 36.0 g/dL [facility] MCV (RBC) [Entitic vol] 84.0 fL 80.0 - 100.0 fL [facility] Monocytes (Bld) [#/Vol] 0.80 10*3/uL [facility] Monocytes/100 WBC (Bld) 10.1 % C [facility] Neutrophils (Bld) [#/Vol] 5.40 10*3/uL [facility] Neutrophils/100 WBC (Bld) 68.3 % [facility] Nucleated RBC (Bld) [#/Vol] [facility] Nucleated RBC/100 WBC (Bld) [Ratio] 0.0 % /100 WBC [facility] Platelet mean volume (Bld) [Entitic vol] 9.2 fL 9.0 - 12.7 fL [facility] Platelets (Bld) [#/Vol] 367 10*3/uL [facility] RBC (Bld) [#/Vol] 3.81 10*6/uL Low 3.90 - 5.2 0 m/uL [facility] WBC (Bld) [#/Vol] 7.91 10*3/uL [facility] Basic metabolic 2000 panelon 06-22-2023 Anion gap [Moles/Vol] 12 mmol/L 9 - 18 mmol/L [facility] Calcium [Mass/Vol] 10.0 mg/dL 8.5 - 10. 2 mg/dL [facility] Chloride [Moles/Vol] 97 mmol/L 97 - 10 5 mmol/L [facility] CO2 [Moles/Vol] 24 mmol/L 22 - 30 mmol/L [facility] Creatinine [Mass/Vol] 1.49 mg/dL High 0.58 - 0.96 mg/dL [facility] Estimated Glomerular Filtration Rate 34 mL/min/1.73m Low >=60 mL/min/1.73m [facility] Glucose [Mass/Vol] 125 mg/dL High 74 - 99 mg/dL [facility] Potassium [Moles/Vol] 4.2 mmol/L 3.7 - 5.1 mmol/L [facility] Sodium [Moles/Vol] 133 mmol/L Low 136 - 144 mmol/L [facility] Urea nitrogen [Mass/Vol] 23 mg/dL High 7 - 21 mg/dL [facility] Basophil percentageOrdered B y: Lizet Bradshaw on 06-15-2023 Basophil percentage >100 SEEN /hpf 0-5 [facility] Comment on above: Microscopic field is filled. Other elements may be obscured. Bilirubin Test strip Ql (U)O rdered By: Lizet Bradshaw on 06-15-2023 Bilirubin Ql (U) Negative Negative [facility] Ketones Test strip Ql (U)Ord ered By: Lizet Bradshaw on 06-15-2023 Ketones Ql (U) Negative Negative [facility] Mucus LM Ql (Urine sed)Order ed By: Lizet Bradshaw on 06-15-2023 Mucus Ql (Urine sed) 0 SEEN /hpf [facility] Nitrite Test strip Ql (U)Ord ered By: Lizet Bradshaw on 06-15-2023 Nitrite Ql (U) Negative Negative [facility] Protein Test strip Ql (U)Ord ered By: Lizet Bradshaw on 06-15-2023 Protein Ql (U) 30 mg/dl Negative [facility] Squamous epithelial cells de tection in urine sediment by light microscopyOrdered By: Lizet Bradshaw on 06-15-2023 Epithelial cells.squamous LM Ql (Urine sed) 0 SEEN /hpf 5-[address] [facility] Urine blood detectionOrdered By: Lizet Bradshaw on 06-15-2023 RBC Ql (U) 50 /ul Negative [facility] RBC Ql (U) 0 SEEN /hpf 0-[address] [facility] Urine clarityOrdered By: Jcarlos Bradshaw on 06-15-2023 Clarity (U) Cloudy Clear [facility] Urine color determinationOrd ered By: Lizet Bradshaw on 06-15-2023 Color (U) Yellow Yellow [facility] Urine glucose detectionOrder ed By: Lizet Bradshaw on 06-15-2023 Glucose Ql (U) 1000 mg/dl Normal [facility] Urine leukocyte esterase det ection by dipstickOrdered By: Lizet Bradshaw on 06-15-2023 Leukocyte esterase Test strip Ql (U) 500 /ul Negative [facility] Urine pHOrdered By: Shiraz Bradshaw on 06-15-2023 pH (U) 6.5 [pH] 5.0 - 8.[address] [facility] Urine sediment bacteria coun t by microscopy (number/high power field)Ordered By: Lizet Bradshaw on 06-15-2023 Bacteria LM.HPF (Urine sed) [#/Area] 4 /[HPF] None Seen [facility] Comment on above: Microscopic field is filled. Other elements may be obscured. Urine specific gravity measu rementOrdered By: Lizet Bradshaw on 06-15-2023 Specific gravity (U) [Rel density] 1.010 1.002-1.[address] [facility] Urobilinogen Auto test strip Ql (U)Ordered By: Lizet Bradshaw on 06-15-2023 Urobilinogen Ql (U) Normal mg/dl Normal [facility] UA DIP, URINE (POC)on 2022 BILIRUBIN UA (POCT) Negative Negative [facility] CLARITY UA (POCT) Clear [facility] COLOR UA (POCT) Yellow [facility] GLUCOSE UA (POCT) >=1000 Abnormal Negative mg/dL [facility] Hemoglobin Ql (U) Large Abnormal Negative [facility] KETONE UA (POCT) Negative Negative mg/dL [facility] LEUKOCYTES UA (POCT) Small Abnormal Negative [facility] NITRITE UA (POCT) Positive Abnormal Negative [facility] PH UA (POCT) 6.0 4.5 - 8.0 [facility] Protein Ql (U) 100 mg/dL Abnormal Negative mg/dL [facility] SPECIFIC GRAVITY UA (POCT) 1.010 1.005 - 1.030 [facility] UROBILINOGEN UA (POCT) 0.2 E.U./dL Olga l E.U./dL [facility] Absolute lymphocyte countOrd ered By: Vinny Root on 02-17-2023 Lymphocytes Auto (Unsp spec) [#/Vol] 1.75 10*3/uL 0.83-4.[address] [facility] Basophil percentageOrdered B y: Voca Ivett on 02-17-2023 Basophils/100 WBC (Bld) 0.5 % 0-1 [facility] Chloride [Moles/Vol] 102 mmol/L 98-[address] [facility] Eosinophils/100 WBC (Bld) 2.5 % 0-[address] [facility] Glucose [Mass/Vol] 127 mg/dL 74-106 [facility] Comment on above: Fasting Glucose resu lt greater than or equal to 126 mg/dL suggests DIABETES MELLITUS per A.D.A. criteria. Neutrophils (Bld) [#/Vol] 4.6 10*3/uL 2.0-7.[address] [facility] Neutrophils/100 WBC (Bld) 62.5 % 47-[address] [facility] Potassium [Moles/Vol] 3.9 mmol/L 3.5-5.1 [facility] Sodium [Moles/Vol] 135 mmol/L 136-145 [facility] WBC (Bld) [#/Vol] 7.3 10*3/uL 4.4-11.0 [facility] Blood erythrocytes count (nu mber/volume)Ordered By: Vinny Root on 02-17-2023 RBC (Bld) [#/Vol] 4.28 10*6/uL 4.2-5.4 [facility] Blood hemoglobin measurement (mass/volume)Ordered By: Voca Ivett on 02-17-2023 Hemoglobin (Bld) [Mass/Vol] 12.7 g/dL 12.0-15.[address] [facility] Blood lymphocytes/100 leukoc ytesOrdered By: Voca Ivett on 02-17-2023 Lymphocytes/100 WBC (Bld) 23.8 % 19-[address] [facility] Blood monocytes/100 leukocyt esOrdered By: Voca Ivett on 02-17-2023 Monocytes/100 WBC (Bld) 10.4 % 0-10 [facility] Blood platelet mean volumeOr dered By: Voca Ivett on 02-17-2023 Platelet mean volume (Bld) [Entitic vol] 10.3 fL 6.2-12.[address] [facility] Determination of erythrocyte mean corpuscular volume (MCV)Ordered By: Vinny Root on 02-17-2023 MCV (RBC) [Entitic vol] 95.6 fL 81-99 [facility] Hematocrit Auto (Bld) [Volum e fraction]Ordered By: Vinny Root on 02-17-2023 Hematocrit (Bld) [Volume fraction] 40.9 % 37-[address] [facility] Laboratory - Chemistry and C hemistry - challengeOrdered By: Voca Ivett on 02-17-2023 CO2 [Moles/Vol] 29.0 mmol/L 21.0-32.[address] [facility] Urea nitrogen/Creatinine [Mass ratio] 13.1 mg/mg 10-[address] [facility] Laboratory - Hematology and Cell countsOrdered By: Vinny Ivett on 02-17-2023 Erythrocyte distribution width (RBC) [Entitic vol] 47.8 fL 35.1-43.[address] [facility] Erythrocyte distribution width (RBC) [Ratio] 13.6 % 11.6-14.[address] [facility] Immature granulocytes/100 WBC (Bld) 0.300 % 0.0-0.[address] [facility] Comment on above: IG% - Immature Granu locytes (promyelocytes, myelocytes and metamyelocytes) > 1% indicates that a LEFT SHIFT is Present. MCH (RBC) [Entitic mass] 29.7 pg 27.0-32.[address] [facility] Nucleated RBC/100 WBC (Bld) [Ratio] 0 % 0-[address] [facility] MCHC Auto (RBC) [Mass/Vol]Or dered By: Vinny Root on 02-17-2023 MCHC (RBC) [Mass/Vol] 31.1 g/dL 32-36 [facility] No Panel InformationOrdered By: Vinny Root on 02-17-2023 Estimated GFR (MDRD) Amer 47 mL/min >[address] [facility] Comment on above: GFR Calc Estimated GFR (MDRD) Non-Af Amer 39 mL/min >[address] [facility] Comment on above: Non- GFR Calc Thyroid Stimulating Hormone (TSH) 2.83 uIU/mL 0.358-3.[address] [facility] Platelets bldOrdered By: Country Knollstessie Root on 02-17-2023 Platelets (Bld) [#/Vol] 298 10*3/uL 150-[address] [facility] Serum or plasma calcium fernando urement (mass/volume)Ordered By: Vinny Root on 02-17-2023 Calcium [Mass/Vol] 9.7 mg/dL 8.5-10.1 [facility] Serum or plasma creatinine m easurement (mass/volume)Ordered By: Vinny Root on 02-17-2023 Creatinine [Mass/Vol] 1.37 mg/dL 0.55-1.02 [facility] Comment on above: The validity of the calculated GFR & GFRAA in patients over 70 years has not been determined. Clinical correlation is essential. Serum or plasma urea nitroge n measurement (mass/volume)Ordered By: Vinny Root on 02-17-2023 Urea nitrogen [Mass/Vol] 18 mg/dL 7-[address] [facility] Thin prep Papanicolaou smear with manual screeningOrdered By: Vinny Root on 02-17-2023 Thin prep Papanicolaou smear with manual screening 4 5-[address] [facility] Absolute lymphocyte countOrd ered By: Joshua Viramontes on 12-04-2022 Lymphocytes Auto (Unsp spec) [#/Vol] 1.13 10*3/uL 0.83-4.[address] [facility] Basophil percentageOrdered B y: Joshua Viramontes on 12-04-2022 Basophil percentage >100 SEEN /hpf 0-5 [facility] Basophils/100 WBC (Bld) 0.4 % 0-1 [facility] Bilirubin [Mass/Vol] 0.60 mg/dL 0.20-1.[address] [facility] Comment on above: For patients on eltr ombopag therapy, use of Dimension [place] TBIL is not recommended. Chloride [Moles/Vol] 101 mmol/L 98-[address] [facility] Eosinophils/100 WBC (Bld) 0.8 % 0-[address] [facility] Glucose [Mass/Vol] 163 mg/dL 74-106 [facility] Comment on above: Fasting Glucose resu lt greater than or equal to 126 mg/dL suggests DIABETES MELLITUS per A.D.A. criteria. Neutrophils (Bld) [#/Vol] 15.3 10*3/uL 2.0-7.[address] [facility] Neutrophils/100 WBC (Bld) 89.3 % 47-[address] [facility] Potassium [Moles/Vol] 3.0 mmol/L 3.5-5.1 [facility] Protein [Mass/Vol] 9.1 g/dL 6.4-8.2 [facility] Sodium [Moles/Vol] 134 mmol/L 136-145 [facility] WBC (Bld) [#/Vol] 17.1 10*3/uL 4.4-11.0 [facility] Bilirubin Test strip Ql (U)O rdered By: Joshua Viramontes on 12-04-2022 Bilirubin Ql (U) Negative Negative [facility] Blood erythrocytes count (nu mber/volume)Ordered By: Joshua Viramontes on 12-04-2022 RBC (Bld) [#/Vol] 4.13 10*6/uL 4.2-5.4 [facility] Blood hemoglobin measurement (mass/volume)Ordered By: Joshua Viramontes on 12-04-2022 Hemoglobin (Bld) [Mass/Vol] 13.2 g/dL 12.0-15.[address] [facility] Blood lymphocytes/100 leukoc ytesOrdered By: Joshua Viramontes on 12-04-2022 Lymphocytes/100 WBC (Bld) 6.6 % 19-[address] [facility] Blood monocytes/100 leukocyt esOrdered By: Joshua Viramontes on 12-04-2022 Monocytes/100 WBC (Bld) 2.3 % 0-10 [facility] Blood platelet mean volumeOr dered By: Joshua Viramontes on 12-04-2022 Platelet mean volume (Bld) [Entitic vol] 10.4 fL 6.2-12.[address] [facility] Culture, urineOrdered By: Luis Felipe Viramontes on 12-04-2022 Bacteria identified Cx Nom (U) Streptococcus gallolyticus pas [facility] Determination of erythrocyte mean corpuscular volume (MCV)Ordered By: Joshua Viramontes on 12-04-2022 MCV (RBC) [Entitic vol] 97.3 fL 81-99 [facility] Hematocrit Auto (Bld) [Volum e fraction]Ordered By: Joshua Viramontes on 12-04-2022 Hematocrit (Bld) [Volume fraction] 40.2 % 37-[address] [facility] INR in Blood by Coagulation assayOrdered By: Joshua Viramontes on 12-04-2022 INR Coag (Bld) [Relative time] 2.2 {INR} [facility] Influenza virus A and B and SARS-CoV-2 (COVID-19) Ag panel - Upper respiratory specimOrdered By: Joshua Viramontes on 12-04-2022 SARS-CoV-2 (COVID-19) RNA CASSIE+probe Ql (Resp) [facility] Ketones Test strip Ql (U)Ord ered By: Joshua Viramontes on 12-04-2022 Ketones Ql (U) Negative Negative [facility] Laboratory - Chemistry and C hemistry - challengeOrdered By: Joshua Viramontes on 12-04-2022 ALP [Catalytic activity/Vol] 123 U/L 45-[address] [facility] [facility] ALT [Catalytic activity/Vol] 18 U/L 13-[address] [facility] CO2 [Moles/Vol] 25.0 mmol/L 21.0-32.[address] [facility] Globulin (S) [Mass/Vol] 5.3 g/dL 2.2-4.2 [facility] Lipase [Catalytic activity/Vol] 54 U/L 13-[address] [facility] Comment on above: Please note:LIPASE r evised reference range effective 22. New Lipase methodology. Expected to produce lower values than the previous assay method. NEW Reference Range: 13 - 75 U/L Natriuretic peptide B (Bld) [Mass/Vol] 236.7 pg/mL 0-[address] [facility] Urea nitrogen/Creatinine [Mass ratio] 15.5 mg/mg 10-[address] [facility] Laboratory - CoagulationOrde red By: Joshua Viramontes on 12-04-2022 PT Coag (PPP) [Time] 24.6 s 11.7-14.[address] [facility] Laboratory - Hematology and Cell countsOrdered By: Joshua Viramontes on 12-04-2022 Erythrocyte distribution width (RBC) [Entitic vol] 47.1 fL 35.1-43.[address] [facility] Erythrocyte distribution width (RBC) [Ratio] 13.2 % 11.6-14.[address] [facility] Immature granulocytes/100 WBC (Bld) 0.600 % 0.0-0.[address] [facility] Comment on above: IG% - Immature Granu locytes (promyelocytes, myelocytes and metamyelocytes) > 1% indicates that a LEFT SHIFT is Present. MCH (RBC) [Entitic mass] 32.0 pg 27.0-32.[address] [facility] Nucleated RBC/100 WBC (Bld) [Ratio] 0 % 0-[address] [facility] MCHC Auto (RBC) [Mass/Vol]Or dered By: Joshua Viramontes on 12-04-2022 MCHC (RBC) [Mass/Vol] 32.8 g/dL 32-36 [facility] Mucus LM Ql (Urine sed)Order ed By: Joshua Viramontes on 12-04-2022 Mucus Ql (Urine sed) 0 SEEN /hpf [facility] Nitrite Test strip Ql (U)Ord ered By: Joshua Viramontes on 12-04-2022 Nitrite Ql (U) Negative Negative [facility] No Panel InformationOrdered By: Joshua Viramontes on 12-04-2022 Troponin I High Sensitivity 10 pg/mL 3.0-54.[address] [facility] Comment on above: Please Note: New Emily t Units and Gender Specific Reference Ranges. For more information see Policy Stat Procedure [place] High Sensitivity Troponin (TNIH) and attachments. Estimated Creatinine Clearance Calc 25.74 ml/min [facility] Estimated GFR (MDRD) Amer 41 mL/min >[address] [facility] Comment on above: GFR Calc Estimated GFR (MDRD) Non-Af Amer 34 mL/min >[address] [facility] Comment on above: Non- GFR Calc Platelets bldOrdered By: Tess Viramontes on 12-04-2022 Platelets (Bld) [#/Vol] 302 10*3/uL 150-[address] [facility] Protein Test strip Ql (U)Ord ered By: Joshua Viramontes on 12-04-2022 Protein Ql (U) 30 mg/dl Negative [facility] Serum or plasma albumin fernando urement (mass/volume)Ordered By: Joshua Viramontes on 12-04-2022 Albumin [Mass/Vol] 3.8 g/dL 3.2-5.0 [facility] Serum or plasma albumin/glob ulin mass ratioOrdered By: Joshua Viramontes on 12-04-2022 Albumin/Globulin [Mass ratio] 0.7 {ratio} 0.9-2.[address] [facility] Serum or plasma calcium fernando urement (mass/volume)Ordered By: Joshua Viramontes on 12-04-2022 Calcium [Mass/Vol] 9.8 mg/dL 8.5-10.1 [facility] Serum or plasma creatinine m easurement (mass/volume)Ordered By: Joshua Viramontes on 12-04-2022 Creatinine [Mass/Vol] 1.55 mg/dL 0.55-1.02 [facility] Comment on above: The validity of the calculated GFR & GFRAA in patients over 70 years has not been determined. Clinical correlation is essential. Serum or plasma urea nitroge n measurement (mass/volume)Ordered By: Joshua Viramontes on 12-04-2022 Urea nitrogen [Mass/Vol] 24 mg/dL 7-[address] [facility] Squamous epithelial cells de tection in urine sediment by light microscopyOrdered By: Joshua Viramontes on 12-04-2022 Epithelial cells.squamous LM Ql (Urine sed) 0-5 SEEN /hpf 5-[address] [facility] Thin prep Papanicolaou smear with manual screeningOrdered By: Joshua Viramontes on 12-04-2022 Thin prep Papanicolaou smear with manual screening 20 U/L 15-[address] [facility] Thin prep Papanicolaou smear with manual screening 8 5-[address] [facility] Urine blood detectionOrdered By: Joshua Viramontes on 12-04-2022 RBC Ql (U) 50 /ul Negative [facility] RBC Ql (U) 0 SEEN /hpf 0-[address] [facility] Urine clarityOrdered By: Tess Viramontes on 12-04-2022 Clarity (U) Turbid Clear [facility] Urine color determinationOrd ered By: Joshua Viramontes on 12-04-2022 Color (U) Yellow Yellow [facility] Urine glucose detectionOrder ed By: Joshua Viramontes on 12-04-2022 Glucose Ql (U) 1000 mg/dl Normal [facility] Urine leukocyte esterase det ection by dipstickOrdered By: Joshua Viramontes on 12-04-2022 Leukocyte esterase Test strip Ql (U) 500 /ul Negative [facility] Urine pHOrdered By: Joshua holcomb on 12-04-2022 pH (U) 6.0 [pH] 5.0 - 8.[address] [facility] Urine sediment bacteria coun t by microscopy (number/high power field)Ordered By: Joshua Viramontes on 12-04-2022 Bacteria LM.HPF (Urine sed) [#/Area] 1 /[HPF] None Seen [facility] Urine specific gravity measu rementOrdered By: Joshua Viramontes on 12-04-2022 Specific gravity (U) [Rel density] 1.010 1.002-1.[address] [facility] Urobilinogen Auto test strip Ql (U)Ordered By: Joshua Viramontes on 12-04-2022 Urobilinogen Ql (U) Normal mg/dl Normal [facility] CNNURSEon 09-06-2020 CNNURSE Nurse Visit (COVAMD) ANTONIO GUPTA ([id number]) 1940 F Date Time Provider Department 09/06/20 YONG HUNT (DICK) COVLAKIA During your visit today, we recorded the following information about you: Allergies As of Date: 09/06/2020 Noted Allergy Reaction POISON FANY 10/17/2005 SULFA (SULFONAMIDE ANTIBIOTICS) 10/17/2005 4 - Hives Date Reviewed: 10/11/2019 Reviewed by: Cara Herring MA - Fully Assessed Order(s):[place] SARS-COV-2 VACCINE 2D DOSE APPT [[id number]] Order #: [id number] Prescriptions as of 09/06/2020 Sig: ONETOUCH VERIO [...] 10/04/2008 08/13/2011 Rout[facility]*10/04/2008 08/12/2010 BONE AND CARTILAGE DIS [...] disease) Stage 3, GFR 30-59*12/14/2017 Encounter Status:Open [facility] Office Visit: [facility] 05-26-20 17 Dietary management education, guidance, and counseling (procedure) yes Invalid Interpretation Code [facility] Phone: [phone] Documentation of current medications (procedure) Done Invalid Interpretation Code [facility] Phone: [phone] Fall risk assessment No Invalid Interpretation Code [facility] Phone: [phone] Chart Maintenanceon 05-15-20 16 Left ventricular Ejection fraction 65 % Invalid Interpretation Code [facility] Phone: [phone] Office Visiton 05-15-2016 Tobacco use [facility] Former smoker Invalid Interpretation Code [facility] Phone: [phone] Lab Report: Basic Metabolic Profile (BMP)on 04-04-2016 Anion gap 6 mmol/L Invalid Interpretation Code 5-15 [facility] Phone: [phone] BUN/Creatinine Ratio 14.7 RATIO Invalid Interpretation Code 10-20 [facility] Phone: [phone] Calcium 9.2 mg/dL Invalid Interpretation Code 8.5-10.1 [facility] Phone: [phone] Chloride 101 mmol/L Invalid Interpretation Code 98-107 [facility] Phone: [phone] CO2 27.0 mmol/L Invalid Interpretation Code 21.0-32.0 [facility] Phone: [phone] Creatinine 1.50 mg/dL High 0.55-1.20 [facility] Phone: [phone] eGFR (non-black) 43 mL/min/{1.73_m2} Low >60 [facility] Phone: [phone] eGFR (non-black) 36 mL/min/{1.73_m2} Low >60 [facility] Work Phone: [phone] Glucose mass conc 106 mg/dL Invalid Interpretation Code 70-110 [facility] Work Phone: [phone] Potassium molar conc 4.5 mmol/L Invalid Interpretation Code 3.5-5.1 [facility] Work Phone: [phone] Sodium 134 mmol/L Low 136-145 [facility] Work Phone: [phone] Urea nitrogen 22 mg/dL High 7-18 [facility] Work Phone: [phone] Lab Report: Lipid Profileon 02-14-2016 Cholesterol 135 mg/dL Invalid Interpretation Code 200 [facility] Work Phone: [phone] HDL Cholesterol 33 mg/dL Low [facility] Phone: [phone] LDL Cholesterol 69 mg/dL Invalid Interpretation Code 0-130 [facility] Work Phone: [phone] Triglyceride 166 mg/dL Invalid Interpretation Code [facility] Work Phone: [phone] very low density lipoproteins 33 mg/dL Invalid Interpretation Code 5-40 [facility] Work Phone: [phone] Lab Report: Liver Profileon 02-14-2016 Alanine aminotransferase (ALT) 23 U/L Invalid Interpretation Code 12-78 [facility] Work Phone: [phone] Albumin 3.5 g/dL Invalid Interpretation Code 3.4-5.0 [facility] Work Phone: [phone] Alkaline phosphatase (ALP) 101 U/L Invalid Interpretation Code 50-136 [facility] Work Phone: [phone] Aspartate aminotransferase (AST) 15 U/L Invalid Interpretation Code 15-37 [facility] Work Phone: [phone] Bilirubin (direct) 0.11 mg/dL Invalid Interpretation Code 0.00-0.30 [facility] Work Phone: [phone] Bilirubin (total) 0.30 mg/dL Invalid Interpretation Code 0.20-1.00 [facility] Work Phone: [phone] Globulin 4.8 g/dL High 2.3-3.5 [facility] Work Phone: [phone] Protein 8.3 g/dL High 6.4-8.2 [facility] Work Phone: [phone] Lab Report: CBC-Complete Blo od Cnt No Diffon 01-22-2016 Erythrocyte distribution width Auto Ratio (RBC) 14.1 % Invalid Interpretation Code 11.6-14.6 [facility] Work Phone: [phone] Erythrocytes (RBC) 4.20 10*6/uL Invalid Interpretation Code 4.2-5.4 [facility] Work Phone: [phone] Hematocrit (HCT) 37.1 % Invalid Interpretation Code 37-47 [facility] Work Phone: [phone] Hemoglobin mass conc (Bld) 11.9 g/dL Low 12.0-15.0 [facility] Work Phone: [phone] MCH 28.3 pg Invalid Interpretation Code 27.0-32.0 [facility] Work Phone: [phone] MCHC mass conc (RBC) 32.1 G/GL Invalid Interpretation Code 32-36 [facility] Work Phone: [phone] MCV 88.3 fL Invalid Interpretation Code 81-99 [facility] Work Phone: [phone] Platelets 321 10*3/mm3 Invalid Interpretation Code 150-450 [facility] Work Phone: [phone] PMV by Misael 10.9 fL Invalid Interpretation Code 6.2-12.0 [facility] Work Phone: [phone] RDW SD 45.0 fL High 35.1-43.9 [facility] Work Phone: [phone] WBC (Leukocytes) 6.9 10*3/uL Invalid Interpretation Code 4.4-11.0 [facility] Work Phone: [phone] Lab Report: T4 Total, Thyrox inon 11-10-2015 Thyroxine (T4) 11.8 ug/dL Invalid Interpretation Code 4.8-13.9 [facility] Work Phone: [phone] Lab Report: Thyroid Stim Hor chris (TSH)on 11-10-2015 Thyroid stimulating hormone (TSH) 1.65 u[iU]/mL Invalid Interpretation Code 0.358-3.74 [facility] Work Phone: [phone] Lab Report: BNP,B-Type NATRI URETIC PEPTIDEon 09-26-2015 BNP 105.3 pg/mL High 0-100 [facility] Work Phone: [phone] Lab Report: CBC W/Diff, Auto matedon 09-26-2015 Absolute Neut 2.7 X10 3/UL Invalid Interpretation Code 2.0-7.7 [facility] Work Phone: [phone] Basophils/100 WBC Auto (Bld) 0.4 % Invalid Interpretation Code 0-1 [facility] Work Phone: [phone] Eosinophils/100 leukocytes 2.7 % Invalid Interpretation Code 0-5 [facility] Work Phone: [phone] Immature granulocytes/100 WBC (Bld) 0.200 % Invalid Interpretation Code 0.0-0.9 [facility] Work Phone: [phone] Lymphocytes 1.75 X10 3/UL Invalid Interpretation Code 0.83-4.51 [facility] Work Phone: [phone] Lymphocytes/100 leukocytes 34.3 % Invalid Interpretation Code 19-41 [facility] Work Phone: [phone] Monocytes/100 leukocytes 10.0 % Invalid Interpretation Code 0-10 [facility] Work Phone: [phone] Neutrophils/100 WBC Auto (Bld) 52.4 % Invalid Interpretation Code 47-70 [facility] Work Phone: [phone] Lab Report: Magnesiumon Magnesium 1.8 mg/dL Invalid Interpretation Code 1.8-2.4 [facility] Work Phone: [phone] Replaced Document: Malathi Marquezon 03-20-2015 BUN (urea nitrogen) Sinus Bradycardia -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 ABNORMAL Invalid Interpretation Code [facility] Work Phone: [phone] EKG QRS axis -60 deg Invalid Interpretation Code [facility] Work Phone: [phone] P [place] 46 deg Invalid Interpretation Code [facility] Work Phone: [phone] CO Interval 184 ms Invalid Interpretation Code [facility] Work Phone: [phone] Pulse (Heart Rate) 58 /min Invalid Interpretation Code [facility] Work Phone: QRS Duration 146 ms Invalid Interpretation Code [facility] Work Phone: [phone] QT Interval new path ms Invalid Interpretation Code [facility] Work Phone: [phone] QTc Deng 455 ms Invalid Interpretation Code [facility] Work Phone: [phone] T [place] 19 deg Invalid Interpretation Code [facility] Work Phone: [phone] Lab Report: CBC W/Diff, Auto matedon 02-13-2015 Absolute Neut 2.9 X10 3/UL Invalid Interpretation Code 2.0-7.7 [facility] Work Phone: [phone] Lymphocytes 1.41 X10 3/UL Invalid Interpretation Code 0.83-4.51 [facility] Work Phone: [phone] Office Visiton 11-09-2014 cardiac risk group C Invalid Interpretation Code [facility] Work Phone: [phone] General cardiovascular disease 10Y risk [#] [place].D'Agost[place] N/A Invalid Interpretation Code [facility] Work Phone: [phone] Office Visiton 09-29-2013 Alcoholism counseling (procedure) no Invalid Interpretation Code [facility] Work Phone: [phone] Replaced Document: [employer] E CG Observationson 03-25-2013 Pulse (Heart Rate) 478 ms Invalid Interpretation Code [facility] Work Phone: [phone] Vital Signs Date Time Vital Sign Value Performing Clinician Facility 02-06-2025 10:53-0400 Body mass index (BMI) [Ratio] 31.31 kg/m2 Carlos House APRN.HEALTH POLICY NURSE Work Phone: [facility] 02-06-2025 10:53-0400 Body temperature 98.4 [degF] Carlos House APRN.HEALTH POLICY NURSE Work Phone: [facility] 02-06-2025 10:53-0400 Body weight 88 kg Carlos House APRN.HEALTH POLICY NURSE Work Phone: [facility] 02-06-2025 10:53-0400 Diastolic blood pressure 78 mm[Hg] Carlos House APRN.HEALTH POLICY NURSE Work Phone: [facility] 02-06-2025 10:53-0400 Heart rate 80 /min Carlos Lacy TOLL TEST WORKER.HEALTH POLICY NURSE Work Phone: [facility] 02-06-2025 10:53-0400 Respiratory rate 16 /min Carlosscarlett House TOLL TEST WORKER.HEALTH POLICY NURSE Work Phone: [facility] 02-06-2025 10:53-0400 SaO2% (BldA) [Mass fraction] 94 % Carlosjose House TOLL TEST WORKER.HEALTH POLICY NURSE Work Phone: [facility] 02-06-2025 10:53-0400 Systolic blood pressure 138 mm[Hg] Carlos House TOLL TEST WORKER.HEALTH POLICY NURSE Work Phone: [facility] 11-18-2024 06:01-0400 Body mass index (BMI) [Ratio] 29.6 kg/m2 Dr. Victor M Rocha MD Work Phone: [facility] 11-18-2024 06:01-0400 Body weight 88.[address] Victor M Rocha MD Work Phone: [phone] [place] [address] 11-18-2024 06:01-0400 Diastolic blood pressure 76 mm[Hg] Dr. Victor M Rocha MD Work Phone: [phone] [place] [address] 11-18-2024 06:01-0400 Heart rate 67 /min Dr. Victor M Rocha MD Work Phone: [phone] [place] [address] 11-18-2024 06:01-0400 Respiratory rate 18 /min Dr. Victor M Rocha MD Work Phone: [phone] [place] [address] 11-18-2024 06:01-0400 SaO2% (BldA) [Mass fraction] 92 % Dr. Victor M Rocha MD Work Phone: [phone] [place] [address] 11-18-2024 06:01-0400 Systolic blood pressure 134 mm[Hg] Dr. Victor M Rocha MD Work Phone: [phone] [address] 08-12-2024 12:46-0500 Body mass index (BMI) [Ratio] 30.51 kg/m2 Carlos House TOLL TEST WORKER.HEALTH POLICY NURSE Work Phone: [facility] 08-12-2024 12:46-0500 Body weight 85.73 kg Carlos Lacy TOLL TEST WORKER.HEALTH POLICY NURSE Work Phone: [facility] 08-12-2024 12:46-0500 Diastolic blood pressure 86 mm[Hg] Carlos Lacy TOLL TEST WORKER.HEALTH POLICY NURSE Work Phone: [facility] 08-12-2024 12:46-0500 Heart rate 80 /min Carlos Lacy TOLL TEST WORKER.HEALTH POLICY NURSE Work Phone: [facility] 08-12-2024 12:46-0500 Respiratory rate 18 /min Carlos Lacy TOLL TEST WORKER.HEALTH POLICY NURSE Work Phone: [facility] 08-12-2024 12:46-0500 SaO2% (BldA) [Mass fraction] 96 % Carlos Lacy TOLL TEST WORKER.HEALTH POLICY NURSE Work Phone: [facility] 08-12-2024 12:46-0500 Systolic blood pressure 128 mm[Hg] Carlos Lacy TOLL TEST WORKER.HEALTH POLICY NURSE Work Phone: [facility] 04-06-2024 11:28-0400 Body mass index (BMI) [Ratio] 29.82 kg/m2 Yovana Raphaelf TOLL TEST WORKER.HEALTH POLICY NURSE Work Phone: [facility] 04-06-2024 11:28-0400 Body weight 83.8 kg Yovana Painter TOLL TEST WORKER.HEALTH POLICY NURSE Work Phone: [facility] 04-06-2024 11:28-0400 Diastolic blood pressure 77 mm[Hg] Yovana Sanchezhof TOLL TEST WORKER.HEALTH POLICY NURSE Work Phone: [facility] 04-06-2024 11:28-0400 Heart rate 90 /min Yovana Raphaelf TOLL TEST WORKER.HEALTH POLICY NURSE Work Phone: [facility] 04-06-2024 11:28-0400 Respiratory rate 16 /min Yovanachadd Sanchezhof TOLL TEST WORKER.HEALTH POLICY NURSE Work Phone: [facility] 04-06-2024 11:28-0400 SaO2% (BldA) [Mass fraction] 95 % Yovana Painter TOLL TEST WORKER.HEALTH POLICY NURSE Work Phone: [facility] 04-06-2024 11:28-0400 Systolic blood pressure 127 mm[Hg] Yovana Painter TOLL TEST WORKER.HEALTH POLICY NURSE Work Phone: [facility] 04-01-2024 08:31-0400 Body mass index (BMI) [Ratio] 30.99 kg/m2 Joshua Masci DO Work Phone: [facility] 04-01-2024 08:31-0400 Body temperature 97.11 [degF] Joshua Masci DO Work Phone: [facility] 04-01-2024 08:31-0400 Body weight 87.09 kg Joshua Masci DO Work Phone: [facility] 04-01-2024 08:31-0400 Diastolic blood pressure 73 mm[Hg] Joshua Masci DO Work Phone: [facility] 04-01-2024 08:31-0400 Heart rate 90 /min Joshua Masci DO Work Phone: [facility] 04-01-2024 08:31-0400 SaO2% (BldA) [Mass fraction] 92 % Joshua Masci DO Work Phone: [facility] 04-01-2024 08:31-0400 Systolic blood pressure 128 mm[Hg] Joshua Masci DO Work Phone: [facility] 03-25-2024 09:09-0400 Body mass index (BMI) [Ratio] 33.17 kg/m2 Joshua Masci DO Work Phone: [facility] 03-25-2024 09:09-0400 Body temperature 97.59 [degF] Joshua Masci DO Work Phone: [facility] 03-25-2024 09:09-0400 Body weight 93.21 kg Joshua Masci DO Work Phone: [facility] 03-25-2024 09:09-0400 Diastolic blood pressure 72 mm[Hg] Joshua Masci DO Work Phone: [facility] 03-25-2024 09:09-0400 Heart rate 90 /min Joshua Masci DO Work Phone: [facility] 03-25-2024 09:09-0400 SaO2% (BldA) [Mass fraction] 82 % Joshua Masci DO Work Phone: [facility] 03-25-2024 09:09-0400 Systolic blood pressure 137 mm[Hg] Joshua Masci DO Work Phone: [facility] 02-26-2024 10:59-0400 Body mass index (BMI) [Ratio] 31.55 kg/m2 Joshua Masci DO Work Phone: [facility] 02-26-2024 10:59-0400 Body temperature 97.59 [degF] Joshua Masci DO Work Phone: [facility] 02-26-2024 10:59-0400 Body weight 88.68 kg Joshua Masci DO Work Phone: [facility] 02-26-2024 10:59-0400 Diastolic blood pressure 76 mm[Hg] Joshua Masci DO Work Phone: [facility] 02-26-2024 10:59-0400 Heart rate 91 /min Joshua Masci DO Work Phone: [facility] 02-26-2024 10:59-0400 SaO2% (BldA) [Mass fraction] 95 % Joshua Masci DO Work Phone: [facility] 02-26-2024 10:59-0400 Systolic blood pressure 146 mm[Hg] Joshua Masci DO Work Phone: [facility] 02-16-2024 12:07-0400 Body mass index (BMI) [Ratio] 32.17 kg/m2 Sean Ridley PA Work Phone: [facility] 02-16-2024 12:07-0400 Body temperature 96.91 [degF] Sean Ridlye PA Work Phone: [facility] 02-16-2024 12:07-0400 Body weight 90.4 kg Krislyn Aberegg PA Work Phone: [facility] 02-16-2024 12:07-0400 Diastolic blood pressure 82 mm[Hg] Krislyn Aberegg PA Work Phone: [facility] 02-16-2024 12:07-0400 Heart rate 88 /min Krislyn Aberegg PA Work Phone: [facility] 02-16-2024 12:07-0400 Respiratory rate 16 /min Krislyn Aberegg PA Work Phone: [facility] 02-16-2024 12:07-0400 SaO2% (BldA) [Mass fraction] 96 % Krislyn Aberegg PA Work Phone: [facility] 02-16-2024 12:07-0400 Systolic blood pressure 132 mm[Hg] Krislyn Aberegg PA Work Phone: [facility] 02-01-2024 12:31-0400 Body mass index (BMI) [Ratio] 32.07 kg/m2 Victor M Rocha MD Work Phone: [facility] 02-01-2024 12:31-0400 Body weight 90.13 kg Victor M Rocha MD Work Phone: [facility] 02-01-2024 12:31-0400 Diastolic blood pressure 74 mm[Hg] iVctor M Rocha MD Work Phone: [facility] 02-01-2024 12:31-0400 Heart rate 88 /min Victor M Rocha MD Work Phone: [facility] 02-01-2024 12:31-0400 Respiratory rate 16 /min Victor M Rocha MD Work Phone: [facility] 02-01-2024 12:31-0400 Systolic blood pressure 124 mm[Hg] Victor M Rocha MD Work Phone: [facility] 01-15-2024 10:45-0400 Body mass index (BMI) [Ratio] 32.38 kg/m2 Daniel Bucio MD Work Phone: [facility] 01-15-2024 10:45-0400 Body temperature 97.5 [degF] Daniel Bucio MD Work Phone: [facility] 01-15-2024 10:45-0400 Body weight 91 kg Daniel Bucio MD Work Phone: [facility] 01-15-2024 10:45-0400 Diastolic blood pressure 58 mm[Hg] Daniel Bucio MD Work Phone: [facility] 01-15-2024 10:45-0400 Heart rate 91 /min Daniel Bucio MD Work Phone: [facility] 01-15-2024 10:45-0400 Respiratory rate 22 /min Daniel Bucio MD Work Phone: [facility] 01-15-2024 10:45-0400 SaO2% (BldA) [Mass fraction] 95 % Daniel Bucio MD Work Phone: [facility] 01-15-2024 10:45-0400 Systolic blood pressure 128 mm[Hg] Daniel Bucio MD Work Phone: [facility] 12-24-2023 15:53-0400 Body mass index (BMI) [Ratio] 32.96 kg/m2 Victor M Rocha MD Work Phone: [facility] 12-24-2023 15:53-0400 Body weight 92.63 kg Victor M Rocha MD Work Phone: [facility] 12-24-2023 15:53-0400 Diastolic blood pressure 66 mm[Hg] Victor M Rocha MD Work Phone: [facility] 12-24-2023 15:53-0400 Heart rate 90 /min Victor M Rocha MD Work Phone: [facility] 12-24-2023 15:53-0400 Respiratory rate 20 /min Victor M Rocha MD Work Phone: [facility] 12-24-2023 15:53-0400 SaO2% (BldA) [Mass fraction] 94 % Victor M Rocha MD Work Phone: [facility] 12-24-2023 15:53-0400 Systolic blood pressure 124 mm[Hg] Victor M Rocha MD Work Phone: [facility] 12-23-2023 14:10-0400 Body temperature 97.3 [degF] Treatment Wstr Work Phone: [facility] 12-23-2023 14:10-0400 Diastolic blood pressure 76 mm[Hg] Treatment Wstr Work Phone: [facility] 12-23-2023 14:10-0400 Heart rate 90 /min Treatment Wstr Work Phone: [facility] 12-23-2023 14:10-0400 SaO2% (BldA) [Mass fraction] 94 % Treatment Wstr Work Phone: [facility] 12-23-2023 14:10-0400 Systolic blood pressure 142 mm[Hg] Treatment Wstr Work Phone: [facility] 12-11-2023 14:21-0400 Body temperature 97.9 [degF] Treatment Wstr Work Phone: [facility] 12-11-2023 14:21-0400 Diastolic blood pressure 59 mm[Hg] Treatment Wstr Work Phone: [facility] 12-11-2023 14:21-0400 Heart rate 91 /min Treatment Wstr Work Phone: [facility] 12-11-2023 14:21-0400 SaO2% (BldA) [Mass fraction] 93 % Treatment Wstr Work Phone: [facility] 12-11-2023 14:21-0400 Systolic blood pressure 97 mm[Hg] Treatment Wstr Work Phone: [facility] 12-09-2023 13:49-0400 Body temperature 97.39 [degF] Treatment Wstr Work Phone: [facility] 12-09-2023 13:49-0400 Diastolic blood pressure 56 mm[Hg] Treatment Wstr Work Phone: [facility] 12-09-2023 13:49-0400 Heart rate 91 /min Treatment Wstr Work Phone: [facility] 12-09-2023 13:49-0400 SaO2% (BldA) [Mass fraction] 93 % Treatment Wstr Work Phone: [facility] 12-09-2023 13:49-0400 Systolic blood pressure 128 mm[Hg] Treatment Wstr Work Phone: [facility] 12-02-2023 13:36-0400 Body temperature 97.39 [degF] Treatment Wstr Work Phone: [facility] 12-02-2023 13:36-0400 Diastolic blood pressure 62 mm[Hg] Treatment Wstr Work Phone: [facility] 12-02-2023 13:36-0400 Heart rate 79 /min Treatment Wstr Work Phone: [facility] 12-02-2023 13:36-0400 Respiratory rate 18 /min Treatment Wstr Work Phone: [facility] 12-02-2023 13:36-0400 SaO2% (BldA) [Mass fraction] 99 % Treatment Wstr Work Phone: [facility] 12-02-2023 13:36-0400 Systolic blood pressure 108 mm[Hg] Treatment Wstr Work Phone: [facility] 11-26-2023 15:06-0400 Body temperature 97.3 [degF] Treatment Wstr Work Phone: [facility] 11-26-2023 15:06-0400 Diastolic blood pressure 74 mm[Hg] Treatment Wstr Work Phone: [facility] 11-26-2023 15:06-0400 Heart rate 90 /min Treatment Wstr Work Phone: [facility] 11-26-2023 15:06-0400 Respiratory rate 20 /min Treatment Wstr Work Phone: [facility] 11-26-2023 15:06-0400 SaO2% (BldA) [Mass fraction] 93 % Treatment Wstr Work Phone: [facility] 11-26-2023 15:06-0400 Systolic blood pressure 114 mm[Hg] Treatment Wstr Work Phone: [facility] 11-23-2023 14:38-0400 Body mass index (BMI) [Ratio] 34.46 kg/m2 Victor M Rocha MD Work Phone: [facility] 11-23-2023 14:38-0400 Body weight 96.84 kg Victor M Rocha MD Work Phone: [facility] 11-23-2023 14:38-0400 Diastolic blood pressure 76 mm[Hg] Victor M Rocha MD Work Phone: [facility] 11-23-2023 14:38-0400 Heart rate 68 /min Victor M Rocha MD Work Phone: [facility] 11-23-2023 14:38-0400 Respiratory rate 18 /min Victor M Rocha MD Work Phone: [facility] 11-23-2023 14:38-0400 Systolic blood pressure 120 mm[Hg] Victor M Rocha MD Work Phone: [facility] 11-17-2023 11:31-0400 Body mass index (BMI) [Ratio] 34.38 kg/m2 Joshua Vogeli DO Work Phone: [facility] 11-17-2023 11:31-0400 Body temperature 97.5 [degF] Joshau Masci DO Work Phone: [facility] 11-17-2023 11:31-0400 Body weight 96.62 kg Joshua Masci DO Work Phone: [facility] 11-17-2023 11:31-0400 Diastolic blood pressure 76 mm[Hg] Joshua eLlai DO Work Phone: [facility] 11-17-2023 11:31-0400 Heart rate 89 /min oJshua Vogeli DO Work Phone: [facility] 11-17-2023 11:31-0400 SaO2% (BldA) [Mass fraction] 93 % Joshua Baker DO Work Phone: [facility] 11-17-2023 11:31-0400 Systolic blood pressure 131 mm[Hg] Joshua Olivia DO Work Phone: [facility] 10-30-2023 10:25-0400 Body weight 95.89 kg Victor M Rocha MD Work Phone: [facility] 10-30-2023 10:25-0400 Diastolic blood pressure 64 mm[Hg] Victor M Rocha MD Work Phone: [facility] 10-30-2023 10:25-0400 Heart rate 90 /min Victor M Rocha MD Work Phone: [facility] 10-30-2023 10:25-0400 Respiratory rate 18 /min Victor M Rocha MD Work Phone: [facility] 10-30-2023 10:25-0400 SaO2% (BldA) [Mass fraction] 100 % Victor M Rocha MD Work Phone: [facility] 10-30-2023 10:25-0400 Systolic blood pressure 118 mm[Hg] Victor M Rocha MD Work Phone: [facility] 06-22-2023 11:34-0500 Body temperature 98.71 [degF] Ana Podlogar TOLL TEST WORKER.HEALTH POLICY NURSE Work Phone: [facility] 06-22-2023 11:34-0500 Body weight 93.35 kg Ana Podlogar TOLL TEST WORKER.HEALTH POLICY NURSE Work Phone: [facility] 06-22-2023 11:34-0500 Diastolic blood pressure 62 mm[Hg] Ana Podlogar TOLL TEST WORKER.HEALTH POLICY NURSE Work Phone: [facility] 06-22-2023 11:34-0500 Heart rate 90 /min Ana Podlogar TOLL TEST WORKER.HEALTH POLICY NURSE Work Phone: [facility] 06-22-2023 11:34-0500 Respiratory rate 18 /min Ana Kebede TOLL TEST WORKER.HEALTH POLICY NURSE Work Phone: [facility] 06-22-2023 11:34-0500 SaO2% (BldA) [Mass fraction] 97 % Ana Valdivialogyolis TOLL TEST WORKER.HEALTH POLICY NURSE Work Phone: [facility] 06-22-2023 11:34-0500 Systolic blood pressure 122 mm[Hg] Ana Valdivialogyolis TOLL TEST WORKER.HEALTH POLICY NURSE Work Phone: [facility] 06-15-2023 14:10-0500 Body height 167.[address] Victor M Rocha Work Phone: [facility] 06-15-2023 14:10-0500 Body temperature 97.3 [degF] Dr. Victor M Rocha Work Phone: [facility] 06-15-2023 14:10-0500 Diastolic blood pressure 60 mm[Hg] Dr. Victor M Rocha Work Phone: [facility] 06-15-2023 14:10-0500 Heart rate 91 /min Dr. Victor M Rocha Work Phone: [facility] 06-15-2023 14:10-0500 Respiratory rate 16 /min Dr. Victor M Rocha Work Phone: [facility] 06-15-2023 14:10-0500 SaO2% (BldA) [Mass fraction] 94 % Dr. Victor M Rocha Work Phone: [facility] 06-15-2023 14:10-0500 Systolic blood pressure 125 mm[Hg] Dr. Victor M Rocha Work Phone: [facility] 06-05-2023 12:20-0500 Body temperature 97.5 [degF] Beverley Reed TOLL TEST WORKER.HEALTH POLICY NURSE Work Phone: [facility] 06-05-2023 12:20-0500 Body weight 93.89 kg Beverley Reed TOLL TEST WORKER.HEALTH POLICY NURSE Work Phone: [facility] 06-05-2023 12:20-0500 Diastolic blood pressure 66 mm[Hg] Beverley Praisler-Wood TOLL TEST WORKER.HEALTH POLICY NURSE Work Phone: [facility] 06-05-2023 12:20-0500 Heart rate 72 /min Beverley Praisler-Wood TOLL TEST WORKER.HEALTH POLICY NURSE Work Phone: [facility] 06-05-2023 12:20-0500 Respiratory rate 16 /min Beverley Praisler-Wood TOLL TEST WORKER.HEALTH POLICY NURSE Work Phone: [facility] 06-05-2023 12:20-0500 SaO2% (BldA) [Mass fraction] 98 % Beverley Praisler-Wood TOLL TEST WORKER.HEALTH POLICY NURSE Work Phone: [facility] 06-05-2023 12:20-0500 Systolic blood pressure 118 mm[Hg] Ebverley Praisler-Wood TOLL TEST WORKER.HEALTH POLICY NURSE Work Phone: [facility] 04-28-2023 10:42-0400 Body weight 93.44 kg Victor M Rocha MD Work Phone: [facility] 04-28-2023 10:42-0400 Diastolic blood pressure 72 mm[Hg] Victor M Rocha MD Work Phone: [facility] 04-28-2023 10:42-0400 Heart rate 82 /min Victor M Rocha MD Work Phone: [facility] 04-28-2023 10:42-0400 Respiratory rate 18 /min Victor M Rocha MD Work Phone: [facility] 04-28-2023 10:42-0400 Systolic blood pressure 118 mm[Hg] Victor M Rocha MD Work Phone: [facility] 02-17-2023 [id number] Body height 167.[address] Victor M Rocha Work Phone: [facility] 02-17-2023 11:11-0400 Body mass index (BMI) [Ratio] 33.4 kg/m2 Dr. Victor M Rocha Work Phone: [facility] 02-17-2023 11:11-0400 Body weight 93.[address] Victor M Rocha Work Phone: [facility] 02-17-2023 11:11-0400 Diastolic blood pressure 74 mm[Hg] Dr. Victor M Rocha Work Phone: [facility] 02-17-2023 11:11-0400 Heart rate 91 /min Dr. Victor M Rocha Work Phone: [facility] 02-17-2023 11:11-0400 Respiratory rate 20 /min Dr. Victor M Rocha Work Phone: [facility] 02-17-2023 11:11-0400 Systolic blood pressure 130 mm[Hg] Dr. Victor M Rocha Work Phone: [facility] 12-11-2022 14:10-0400 Body weight 95.71 kg Victor M Rocha MD Work Phone: [facility] 12-11-2022 14:10-0400 Diastolic blood pressure 68 mm[Hg] Victor M Rocha MD Work Phone: [facility] 12-11-2022 14:10-0400 Heart rate 84 /min Victor M Rocha MD Work Phone: [facility] 12-11-2022 14:10-0400 Respiratory rate 20 /min Victor M Rocha MD Work Phone: [facility] 12-11-2022 14:10-0400 Systolic blood pressure 114 mm[Hg] Victor M Rocha MD Work Phone: [facility] 12-04-2022 17:54-0400 Diastolic blood pressure 65 mm[Hg] Dr. Victor M Rocha Work Phone: [facility] 12-04-2022 17:54-0400 Systolic blood pressure 118 mm[Hg] Dr. Victor M Rocha Work Phone: [facility] 12-04-2022 15:07-0400 Heart rate 88 /min Dr. Victor M Rocha Work Phone: [facility] 12-04-2022 15:07-0400 Respiratory rate 20 /min Dr. Victor M Rocha Work Phone: [facility] 12-04-2022 13:55-0400 Body mass index (BMI) [Ratio] 34.7 kg/m2 Dr. Victor M Rocha Work Phone: [facility] 12-04-2022 13:55-0400 Body temperature 96.3 [degF] Dr. Victor M Rocha Work Phone: [facility] 12-04-2022 13:55-0400 Body weight 97.[address] Victor M Rocha Work Phone: [facility] 12-04-2022 13:55-0400 SaO2% (BldA) [Mass fraction] 94 % Dr. Victor M Rocha Work Phone: [facility] 10-24-2022 10:24-0400 Body weight 96.16 kg Victor M Rocha MD Work Phone: [facility] 10-24-2022 10:24-0400 Diastolic blood pressure 78 mm[Hg] Victor M Rocha MD Work Phone: [facility] 10-24-2022 10:24-0400 Heart rate 66 /min Victor M Rocha MD Work Phone: [facility] 10-24-2022 10:24-0400 Respiratory rate 16 /min Victor M Rocha MD Work Phone: [facility] 10-24-2022 10:24-0400 Systolic blood pressure 120 mm[Hg] Victor M Rocha MD Work Phone: [facility] 09-09-2022 11:03-0500 Body height 167.6 cm Ida Magaña MD Work Phone: [facility] 09-09-2022 11:03-0500 Body temperature 97.81 [degF] Ida Magaña MD Work Phone: [facility] 09-09-2022 11:03-0500 Body weight 95.48 kg Ida Magaña MD Work Phone: [facility] 09-09-2022 11:03-0500 Diastolic blood pressure 71 mm[Hg] Ida Magaña MD Work Phone: [facility] 09-09-2022 11:03-0500 Heart rate 90 /min Ida Magaña MD Work Phone: [facility] 09-09-2022 11:03-0500 Systolic blood pressure 121 mm[Hg] Ida Magaña MD Work Phone: [facility] 08-15-2022 12:37-0500 Body height 170.[address] Victor M Rocha Work Phone: [facility] 08-15-2022 12:37-0500 Body mass index (BMI) [Ratio] 33.6 kg/m2 Dr. Victor M Rocha Work Phone: [facility] 08-15-2022 12:37-0500 Body temperature 97.2 [degF] Dr. Victor M Rocha Work Phone: [facility] 08-15-2022 12:37-0500 Body weight 97.[address] Victor M Rocha Work Phone: [facility] 08-15-2022 12:37-0500 Diastolic blood pressure 69 mm[Hg] Dr. Victor M Rocha Work Phone: [facility] 08-15-2022 12:37-0500 Heart rate 90 /min Dr. Victor M Rocha Work Phone: [facility] 08-15-2022 12:37-0500 Respiratory rate 18 /min Dr. Victor M Rocha Work Phone: [facility] 08-15-2022 12:37-0500 SaO2% (BldA) [Mass fraction] 97 % Dr. Victor M Rocha Work Phone: [facility] 08-15-2022 12:37-0500 Systolic blood pressure 132 mm[Hg] Dr. Victor M Rocha Work Phone: [facility] 01-24-2022 12:57-0400 Body height 172.[address] Victor M Rocha Work Phone: [facility] Work Phone: 01-24-2022 12:57-0400 Body mass index (BMI) [Ratio] 32.5 kg/m2 Dr. Victor M Rocha Work Phone: [facility] Work Phone: 01-24-2022 12:57-0400 Body weight 97.[address] Victor M Rocha Work Phone: [facility] Work Phone: 01-24-2022 12:57-0400 Diastolic blood pressure 60 mm[Hg] Dr. Victor M Rocha Work Phone: [facility] Work Phone: 01-24-2022 12:57-0400 Heart rate 80 /min Dr. Victor M Rocha Work Phone: [facility] Work Phone: 01-24-2022 12:57-0400 Systolic blood pressure 120 mm[Hg] Dr. Victor M Rocha Work Phone: [facility] Work Phone: 01-14-2022 09:29-0400 Body weight 97.07 kg Victor M Rocha MD Work Phone: [facility] 01-14-2022 09:29-0400 Diastolic blood pressure 74 mm[Hg] Victor M Rocha MD Work Phone: [facility] 01-14-2022 09:29-0400 Heart rate 66 /min Victor M Rocha MD Work Phone: [facility] 01-14-2022 09:29-0400 Respiratory rate 16 /min Victor M Rocha MD Work Phone: [facility] 01-14-2022 09:29-0400 Systolic blood pressure 122 mm[Hg] Victor M Rocha MD Work Phone: [facility] 10-11-2021 10:59-0400 Body weight 96.25 kg Victor M Rocha MD Work Phone: [facility] 10-11-2021 10:59-0400 Diastolic blood pressure 70 mm[Hg] Victor M Rocha MD Work Phone: [facility] 10-11-2021 10:59-0400 Heart rate 66 /min Victor M Rocha MD Work Phone: [facility] 10-11-2021 10:59-0400 Respiratory rate 16 /min Victor M Rocha MD Work Phone: [facility] 10-11-2021 10:59-0400 Systolic blood pressure 124 mm[Hg] Victor M Rocha MD Work Phone: [facility] 05-26-2017 13:20-0500 BMI (Body Mass Index) 33.3 kg/m2 Kristan Bazan [facility] Work Phone: 05-26-2017 13:20-0500 BP Diastolic 70 mm[Hg] [facility] Work Phone: 05-26-2017 13:20-0500 BP Systolic 142 mm[Hg] Kristan Brice [facility] Work Phone: 05-26-2017 13:20-0500 Height 172.72 cm Kristansimon Narvaez [facility] Work Phone: 05-26-2017 13:20-0500 Pulse (Heart Rate) 64 /min Kristansimon Narvaez [facility] Work Phone: 05-26-2017 13:20-0500 Respiratory Rate 20 /min Kristansmion Narvaez [facility] Work Phone: 05-26-2017 13:20-0500 Weight [...] Follow-up encounter Carlos House APRN.CNP [facility] Comment on above: Results Start: 02-06-2025 End: 02-06-2025 Subsequent hospital visit by physician [facility] Work Phone: Radiology Comment on above: DELONG (dyspnea on exer tion) [R06.09] Start: 02-06-2025 End: 02-06-2025 ambulatory CARLOS HOUSE Facility:[facility] Start: 02-06-2025 End: 02-06-2025 Office outpatient visit 40 minutes Carlos House APRN.CNP Work Phone: [facility] Comment on above: Chronic diastolic CH F (congestive heart failure) (HCC) (Primary Dx); DELONG (dyspnea on exertion); Generalized weakness; Hypothyroidism, unspecified type; Hyperlipidemia, unspecified hyperlipidemia type; Essential hypertension, benign; Type 2 diabetes mellitus with other diabetic kidney complication, without long-term current use of insulin (HCC); Stage 3a chronic kidney disease (HCC) Start: 02-06-2025 End: 02-06-2025 ambulatory CARLOS HOUSE Facility:[facility] Start: 02-02-2025 End: 02-02-2025 ambulatory Prema Sampson RN [facility] Comment on above: Bi-Weekly Outreach ( Recurring) for Chronic Disease Management Start: 01-12-2025 End: 01-12-2025 ambulatory Prema Sampson RN [facility] Comment on above: Bi-Weekly Outreach ( Recurring) for Chronic Disease Management Start: 01-09-2025 End: 01-09-[address] Victor M Rocha MD Work Phone: [facility] Start: 01-09-2025 End: 01-09-[address] Vinny Root MD -[facility] Work Phone: Start: 12-29-2024 End: 12-29-2024 ambulatory Prema Sampson RN [facility] Comment on above: Bi-Weekly Outreach ( Recurring) for Chronic Disease Management Start: 12-15-2024 End: 12-15-2024 ambulatory Prema Sampson RN [facility] Start: 12-15-2024 End: 12-15-2024 Coordination of care plan Prema Sampson RN Ambulatory [facility] Comment on above: Care Coordination (C ortez review End Outreach for CHF GDMT care path) Start: 11-25-2024 End: 11-25-2024 Refill Victor M Rocha MD Work Phone: [address] [place] [address] Comment on above: Refill Request Start: 11-21-2024 End: 11-21-2024 ambulatory Brian Donnelly RN Work Phone: [facility] Comment on above: Bi-Weekly Outreach ( Recurring) for Chronic Disease Management Start: 11-18-2024 End: 11-18-2024 Patient encounter procedure Amber Palafox [facility] Work Phone: Start: 11-18-2024 End: 11-18-2024 ambulatory [facility] Facility:[facility] Start: 10-28-2024 End: 10-28-2024 ambulatory Prema Sampson RN [facility] Comment on above: Bi-Weekly Outreach ( Recurring) for Chronic Disease Management Start: 10-27-2024 End: 10-27-2024 Refill Victor M Rocha MD Work Phone: [facility] Comment on above: Refill Request Start: 10-10-2024 End: 10-10-2024 ambulatory [facility] Facility:[facility] Start: 10-10-2024 End: 10-10-[address] Vinny Root MD -[facility] Work Phone: Start: 10-07-2024 End: 10-07-2024 ambulatory Prema Sampson [employer] Comment on above: Bi-Weekly Outreach ( Recurring) for Chronic Disease Management Start: 09-13-2024 End: 09-13-2024 ambulatory Prema Sampson [employer] [facility] Comment on above: Initial enrollment o evan for Chronic Disease Management Start: 08-12-2024 End: 08-12-2024 ambulatory CARLOSJose HOUSE Facility:[facility] Start: 08-12-2024 End: 08-12-2024 Patient encounter procedure Carlos Mclaughlinil TOLL TEST WORKER.HEALTH POLICY NURSE Work Phone: [facility] Comment on [...] 08-08-2024 End: 08-08-2024 ambulatory VICTOR M ROCHA Facility:[facility] Start: 07-11-2024 End: 07-11-2024 ambulatory Victor M Rocha Facility:[facility] Start: 05-24-2024 End: 05-24-2024 Telephone encounter Victor [...] & Anesthesia) Start: 05-11-2024 End: 05-11-2024 ambulatory [facility] Facility:[facility] Start: 05-06-2024 End: 05-06-2024 Refill Victor M Rocha MD Work Phone: [facility] Start: 04-21-2024 End: 04-21-2024 Patient Outreach Ivelisse Luis RN Work Phone: [facility] Comment on above: Weekly phone contact (Recurring) for Transitional Care Management Start: 04-18-2024 End: 04-18-2024 ambulatory [facility] Facility:[facility] Start: 04-15-2024 End: 04-15-2024 Refill Victor M Rocha MD Work Phone: [facility] Comment on above: Refill Request Start: 04-11-2024 End: 04-11-2024 ambulatory [facility] Facility:[facility] Start: 04-07-2024 End: 04-07-2024 Patient Outreach Ivelisse Luis RN Work Phone: [facility] Comment on above: Weekly phone contact (Recurring) for Transitional Care Management Start: 04-06-2024 End: 04-06-2024 Patient encounter procedure Yovana Painter APRN.HEALTH POLICY NURSE Work Phone: [facility] Comment on above: Hospital discharge f ollow-up (Primary Dx); Acute on chronic congestive heart failure, unspecified heart failure type (HCC); MGUS (monoclonal gammopathy of unknown significance) Start: 04-06-2024 End: 04-06-2024 ambulatory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 Lab Routine Type 2 diabetes mellitus with other diabetic kidney complication, without long-term current use of insulin (HCC) Expected: 01/29/2024 (Approximate), Expires: 04/29/2024 [facility] Work Phone: Comment on above: Expected: 01/29/2024 (Approximate), Expires: 04/29/2024 Start: 01-29-2024 End: 04-29-2024 CBC W Auto Differential panel - Blood COMPLETE BLOOD COUNT AND DIFFERENTIAL Lab Routine MGUS (monoclonal gammopathy of unknown significance) Iron deficiency anemia, unspecified iron deficiency anemia type Fatigue, unspecified type Generalized weakness SOB (shortness of breath) Expected: 01/29/2024 (Approximate), Expires: 04/29/2024 [facility] Work Phone: Comment on above: Expected: 01/29/2024 (Approximate), Expires: 04/29/2024 Start: 01-29-2024 End: 04-29-2024 Hemoglobin A1c in Blood HEMOGLOBIN A1C Lab Routine Type 2 diabetes mellitus with other diabetic kidney complication, without long-term current use of insulin (HCC) Expected: 01/29/2024 (Approximate), Expires: 04/29/2024 [facility] Work Phone: Comment on above: Expected: 01/29/2024 (Approximate), Expires: 04/29/2024 Start: 01-29-2024 End: 04-29-2024 Thyrotropin [Units/volume] in Serum or Plasma THYROID STIMULATING HORMONE Lab Routine Hypothyroidism, unspecified type Expected: 01/29/2024 (Approximate), Expires: 04/29/2024 [facility] Work Phone: Comment on above: Expected: 01/29/2024 (Approximate), Expires: 04/29/2024 Start: 12-24-2023 End: 12-24-2023 Patient encounter procedure 12/24/2023 3:40 PM EDT Office Visit Family [facility] [address] [place] [address] Victor M Rocha MD [address] [place] [address] Hospital follow up, [facility] 12/16/23 CHF [facility] [place] Comment on above: Hospital follow up, [facility] 12/16/23 CHF Start: 12-14-2023 End: 12-14-2023 ambulatory [place] [facility] Laboratory Comment on above: CBC/RETIC/IRON STUDI ES* CBC/RETIC/IRON STUDI ES/IRON SUCROSE/D5-5/MDCR* Start: 12-11-2023 End: 12-11-2023 ambulatory 12/11/2023 2:30 PM EDT [facility] [address] [place] [address] IRON SUCROSE/D4-5/MDCR* Hematology/Oncology Comment on above: IRON SUCROSE/D4-5/MD CR* Start: 12-09-2023 End: 12-09-2023 ambulatory 12/09/2023 1:30 PM EDT [facility]Oncology [address] [place] [address] IRON SUCROSE/D3-5/MDCR* Hematology/Oncology Comment on above: IRON SUCROSE/D3-5/MD CR* Start: 12-02-2023 End: 12-02-2023 ambulatory 12/02/2023 2:00 PM EDT [facility] H[facility]ology[facility]Oncology [address] [place] [address] IRON SUCROSE/D2-5/MDCR* Hematology/Oncology Comment on above: IRON SUCROSE/D2-5/MD CR* Start: 11-26-2023 End: 11-26-2023 ambulatory 11/26/2023 3:30 PM EDT [facility] Hematology[facility]Oncology [address] [place] [address] START IRON SUCROSE/D1-5/MDCR* Hematology/Oncology Comment on above: START IRON SUCROSE/D 1-5/MDCR* Start: 11-17-2023 End: 02-16-2024 MONOCLONAL PROTEIN, SERUM (BLOOD) [facility] Comment on above: Expected: 11/17/2023 , Expires: 02/16/2024 Start: 11-17-2023 End: 02-16-2024 PROTEIN ELECTROPHORESIS SERUM W/INTERP [facility] Work Phone: Comment on above: Expected: 11/17/2023 , Expires: 02/16/2024 Start: 10-28-2023 End: 01-27-2024 ALBUMIN/CREAT RATIO RND UR ALBUMIN/CREAT RATIO RND UR Lab Routine Type 2 diabetes mellitus with other diabetic kidney complication, without long-term current use of insulin (HCC) Expected: 10/28/2023 (Approximate), Expires: 01/27/2024 [facility] Work Phone: Comment on above: Expected: 10/28/2023 (Approximate), Expires: 01/27/2024 Start: 10-28-2023 End: 01-27-2024 CBC W Auto Differential panel - Blood CBC + DIFF Lab Routine Iron deficiency anemia, unspecified iron deficiency anemia type Expected: 10/28/2023 (Approximate), Expires: 01/27/2024 [facility] Work Phone: Comment on above: Expected: 10/28/2023 (Approximate), Expires: 01/27/2024 Start: 10-28-2023 End: 01-27-2024 Comprehensive metabolic 2000 panel - Serum or Plasma COMP METABOLIC PANEL Lab Routine Essential hypertension, benign Hyperlipidemia, unspecified hyperlipidemia type Type 2 diabetes mellitus with other diabetic kidney complication, without long-term current use of insulin (HCC) Stage 3a chronic kidney disease (HCC) Expected: 10/28/2023 (Approximate), Expires: 01/27/2024 [facility] Work Phone: Comment on above: Expected: 10/28/2023 (Approximate), Expires: 01/27/2024 Start: 10-28-2023 End: 01-27-2024 Hemoglobin A1c in Blood HGB A1C Lab Routine Type 2 diabetes mellitus with other diabetic kidney complication, without long-term current use of insulin (HCC) Expected: 10/28/2023 (Approximate), Expires: 01/27/2024 [facility] Work Phone: Comment on above: Expected: 10/28/2023 (Approximate), Expires: 01/27/2024 Start: 10-28-2023 End: 01-27-2024 Lipid 1996 panel - Serum or Plasma LIPID PANEL BASIC Lab Routine Essential hypertension, benign Hyperlipidemia, unspecified hyperlipidemia type Type 2 diabetes mellitus with other diabetic kidney complication, without long-term current use of insulin (HCC) Expected: 10/28/2023 (Approximate), Expires: 01/27/2024 [facility] Work Phone: Comment on above: Expected: 10/28/2023 (Approximate), Expires: 01/27/2024 Start: 10-28-2023 End: 01-27-2024 Thyrotropin [Units/volume] in Serum or Plasma TSH BLD Lab Routine Hypothyroidism, unspecified type Expected: 10/28/2023 (Approximate), Expires: 01/27/2024 [facility] Work Phone: Comment on above: Expected: 10/28/2023 (Approximate), Expires: 01/27/2024 Start: 10-21-2023 Hemoglobin A1c measurement HbA1C [facility] Start: 10-21-2023 Hemoglobin A1c/Hemoglobin.total in Blood HbA1C [facility] Start: 10-18-2023 Hepatitis B surface antibody level LDL CHOLESTEROL [facility] Start: 09-09-2023 End: 11-09-2023 CBC W Auto Differential panel - Blood CBC + DIFF Lab Routine MGUS (monoclonal gammopathy of unknown significance) Expected: 09/09/2023, Expires: 11/09/2023 [facility] Work Phone: Comment on above: Expected: 09/09/2023 , Expires: 11/09/2023 Start: 09-09-2023 End: 11-09-2023 Comprehensive metabolic 2000 panel - Serum or Plasma COMP METABOLIC PANEL Lab Routine MGUS (monoclonal gammopathy of unknown significance) Expected: 09/09/2023, Expires: 11/09/2023 [facility] Work Phone: Comment on above: Expected: 09/09/2023 , Expires: 11/09/2023 Start: 09-09-2023 End: 11-09-2023 [place]PA/[place],FREE,SER KAPPA/[place],FREE,SER Lab Routine MGUS (monoclonal gammopathy of unknown significance) Expected: 09/09/2023, Expires: 11/09/2023 [facility] Work Phone: Comment on above: Expected: 09/09/2023 , Expires: 11/09/2023 Start: 09-09-2023 End: 11-09-2023 PROT, TOT AND PROT ELECTRO W/ IMMUNOFIX PROT, TOT AND PROT ELECTRO W/ IMMUNOFIX Lab Routine MGUS (monoclonal gammopathy of unknown significance) Expected: 09/09/2023, Expires: 11/09/2023 [facility] Work Phone: Comment on above: Expected: 09/09/2023 , Expires: 11/09/2023 Start: 07-13-2023 Advance Directive Discussion Advance Directive Discussion [facility] Start: 06-15-2023 End: 06-15-[address] [facility] Start: 05-15-2023 Glaucoma screening Dilated Retinal E xam [facility] Start: 05-15-2023 Hepatitis C antibody , confirmatory test DILATED RETINAL EXAM [facility] Start: 04-25-2023 End: 06-25-2023 CBC panel - Blood by Automated count CBC Lab Routine Essential hypertension, benign Iron deficiency anemia, unspecified iron deficiency anemia type Expected: 04/25/2023 (Approximate), Expires: 06/25/2023 [facility] Work Phone: Comment on above: Expected: 04/25/2023 (Approximate), Expires: 06/25/2023 Start: 04-25-2023 End: 06-25-2023 Comprehensive metabolic 2000 panel - Serum or Plasma COMP METABOLIC PANEL Lab Routine Hyperlipidemia, unspecified hyperlipidemia type Essential hypertension, benign Type 2 diabetes mellitus with other diabetic kidney complication, without long-term current use of insulin (HCC) Expected: 04/25/2023 (Approximate), Expires: 06/25/2023 [facility] Work Phone: Comment on above: Expected: 04/25/2023 (Approximate), Expires: 06/25/2023 Start: 04-25-2023 End: 06-25-2023 Hemoglobin A1c in Blood HGB A1C Lab Routine Type 2 diabetes mellitus with other diabetic kidney complication, without long-term current use of insulin (HCC) Expected: 04/25/2023 (Approximate), Expires: 06/25/2023 [facility] Work Phone: Comment on above: Expected: 04/25/2023 (Approximate), Expires: 06/25/2023 Start: 04-25-2023 End: 06-25-2023 Lipid 1996 panel - Serum or Plasma LIPID PANEL BASIC Lab Routine Hyperlipidemia, unspecified hyperlipidemia type Essential hypertension, benign Type 2 diabetes mellitus with other diabetic kidney complication, without long-term current use of insulin (HCC) Expected: 04/25/2023 (Approximate), Expires: 06/25/2023 [facility] Work Phone: Comment on above: Expected: 04/25/2023 (Approximate), Expires: 06/25/2023 Start: 04-25-2023 End: 06-25-2023 Thyrotropin [Units/volume] in Serum or Plasma TSH BLD Lab Routine Hypothyroidism, unspecified type Expected: 04/25/2023 (Approximate), Expires: 06/25/2023 [facility] Work Phone: Comment on above: Expected: 04/25/2023 (Approximate), Expires: 06/25/2023 Start: 04-17-2023 Hepatitis B surface antibody level LDL CHOLESTEROL [facility] Start: 03-13-2023 Covid-19 Vaccine () Covid-19 Vaccine () [facility] Start: 01-16-2023 Hemoglobin A1c/Hemoglobin.total in Blood HBA1C [facility] Start: 01-10-2023 Hepatitis B screening URINE AL BUMIN:CREATININE RATIO [facility] Start: 09-27-2022 Hepatitis B surface antibody level LDL CHOLESTEROL [facility] Start: 07-18-2022 Hemoglobin A1c/Hemoglobin.total in Blood HBA1C [facility] Start: 07-13-2022 ADVANCE DIRECTIVE DISCUSSION ADVANCE DIRECTIVE DISCUSSION [facility] Start: 05-17-2022 COVID-19 VACCINE (4 - Booster for Pfizer series) COVID-19 VACCINE (4 - Booster for Pfizer series) [facility] Start: 04-16-2022 End: 06-16-2022 Comprehensive metabolic 2000 panel - Serum or Plasma COMP METABOLIC PANEL Lab Routine Hyperlipidemia, unspecified hyperlipidemia type 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 Expected: 04/16/2022 (Approximate), Expires: 06/16/2022 [facility] Work Phone: Comment on above: Expected: 04/16/2022 (Approximate), Expires: 06/16/2022 Start: 04-16-2022 End: 06-16-2022 Hemoglobin A1c in Blood HGB A1C Lab Routine Type 2 diabetes mellitus with other diabetic kidney complication, without long-term current use of insulin (HCC) Expected: 04/16/2022 (Approximate), Expires: 06/16/2022 [facility] Work Phone: Comment on above: Expected: 04/16/2022 (Approximate), Expires: 06/16/2022 Start: 04-16-2022 End: 06-16-2022 Lipid 1996 panel - Serum or Plasma LIPID PANEL BASIC Lab Routine Hyperlipidemia, unspecified hyperlipidemia type 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 Expected: 04/16/2022 (Approximate), Expires: 06/16/2022 [facility] Work Phone: Comment on above: Expected: 04/16/2022 (Approximate), Expires: 06/16/2022 Start: 04-16-2022 End: 06-16-2022 Thyrotropin [Units/volume] in Serum or Plasma TSH BLD Lab Routine Hypothyroidism, unspecified type Expected: 04/16/2022 (Approximate), Expires: 06/16/2022 [facility] Work Phone: Comment on above: Expected: 04/16/2022 (Approximate), Expires: 06/16/2022 Start: 04-12-2022 Hemoglobin A1c/Hemoglobin.total in Blood HBA1C [facility] Start: 03-13-2022 Influenza vaccination INFLUENZA (#1) [facility] Start: 03-11-2022 COVID-19 VACCINE (4 - Booster for Pfizer series) COVID-19 VACCINE (4 - Booster for Pfizer series) [facility] Start: 01-10-2022 End: 03-12-2022 ALBUMIN/CREAT RATIO RND UR ALBUMIN/CREAT RATIO RND UR Lab Routine Type 2 diabetes mellitus with other diabetic kidney complication, without long-term current use of insulin (HCC) Expected: 01/10/2022 (Approximate), Expires: 03/12/2022 [facility] Work Phone: Comment on above: Expected: 01/10/2022 (Approximate), Expires: 03/12/2022 Start: 01-10-2022 End: 03-12-2022 Basic metabolic 2000 panel - Serum or Plasma BASIC METABOLIC PNL Lab Routine Type 2 diabetes mellitus with other diabetic kidney complication, without long-term current use of insulin (HCC) Expected: 01/10/2022 (Approximate), Expires: 03/12/2022 [facility] Work Phone: Comment on above: Expected: 01/10/2022 (Approximate), Expires: 03/12/2022 Start: 01-10-2022 End: 03-12-2022 Hemoglobin A1c/Hemoglobin.total in Blood HGB A1C Lab Routine Type 2 diabetes mellitus with other diabetic kidney complication, without long-term current use of insulin (HCC) Expected: 01/10/2022 (Approximate), Expires: 03/12/2022 [facility] Work Phone: Comment on above: Expected: 01/10/2022 (Approximate), Expires: 03/12/2022 Start: 12-28-2021 Hemoglobin A1c/Hemoglobin.total in Blood HBA1C [facility] Start: 10-22-2021 Hepatitis C antibody , confirmatory test DILATED RETINAL EXAM [facility] Start: 09-17-2021 3 comp foot exam completed DIABETIC FOOT EXAM [facility] Start: 09-17-2021 Diabetic foot examination Diabetic F oot Exam [facility] Start: 09-14-2021 Hepatitis B screening URINE AL BUMIN:CREATININE RATIO [facility] Start: 02-03-2021 COVID-19 VACCINE (3 - Booster for Pfizer series) COVID-19 VACCINE (3 - Booster for Pfizer series) [facility] Start: 10-04-2018 Urine microalbumin profile [facility] Start: 12-03-2017 End: 12-03-2017 Appointment Appointment [facility] Work Phone: Start: 06-26-2017 End: 06-26-2017 Appointment Appointment [facility] Work Phone: Start: 05-26-2017 End: 05-26-2017 MANDARIN CHINESE TEACHER MANDARIN CHINESE TEACHER [facility] Work Phone: Start: 05-26-2017 End: 05-26-2017 Follow Up Appt 6 months Follow Up Appt 6 months [facility] Work Phone: Start: 05-26-2017 End: 05-26-2017 Follow Up Appt Other Follow Up Appt Other [facility] Work Phone: Start: 03-20-2017 End: 05-14-2017 Follow Up Appt 3 months Follow Up Appt 3 months [facility] Work Phone: Start: 03-20-2017 End: 05-14-[address] [facility] Work Phone: Start: 12-11-2016 End: 05-14-2017 Follow Up Appt 3 months Follow Up Appt 3 months [facility] Work Phone: Start: 12-11-2016 End: 05-14-[address] [facility] Work Phone: Start: 11-21-2016 End: 05-14-2017 Follow Up Appt 6 months Follow Up Appt 6 months [facility] Work Phone: Start: 11-21-2016 End: 05-14-2017 MMM MMM [facility] Work Phone: Start: 09-03-2016 End: 05-14-2017 Follow Up Appt 3 months Follow Up Appt 3 months [facility] Work Phone: Start: 09-03-2016 End: 05-14-2017 Pacer Clinic Pacer Clinic [facility] Work Phone: Start: 08-18-2016 End: 05-26-2017 *Hepatic Function Panel *Hepatic Function Panel [facility] Work Phone: Start: 08-18-2016 End: 05-26-2017 Lipid panel [AGGREGATE] *Lipid Profile CC PCP [facility] Work Phone: Start: 05-23-2016 End: 08-07-2016 Follow Up Appt 3 months Follow Up Appt 3 months [facility] Work Phone: Start: 05-23-2016 End: 08-07-2016 Pacer Clinic Pacer Clinic [facility] Work Phone: Start: 05-15-2016 End: 05-15-2016 Follow Up Appt 6 months Follow Up Appt 6 months [facility] Work Phone: Start: 05-15-2016 End: 05-15-2016 MMM MMM [facility] Work Phone: Start: 04-22-2016 End: 08-07-2016 Follow Up Appt 1 month Follow Up Appt 1 month [facility] Work Phone: Start: 04-22-2016 End: 08-07-[address] [facility] Work Phone: Start: 04-03-2016 End: 04-04-2016 *BMP *BMP [facility] Work Phone: Start: 02-19-2016 End: 02-19-2016 Follow Up Appt 6 months Follow Up Appt 6 months [facility] Work Phone: Start: 02-19-2016 End: 02-19-2016 MMM MMM [facility] Work Phone: Start: 02-12-2016 End: 02-14-2016 *Hepatic Function Panel *Hepatic Function Panel [facility] Work Phone: Start: 02-12-2016 End: 02-14-2016 Lipid panel [AGGREGATE] *Lipid Profile CC PCP [facility] Work Phone: Start: 01-21-2016 End: 01-22-2016 CBC W Auto Differential panel - Blood *CBC without Diff [facility] Work Phone: Start: 01-21-2016 End: 02-14-2016 Follow Up Appt 3 months Follow Up Appt 3 months [facility] Work Phone: Start: 01-21-2016 End: 02-14-2016 Pacer Clinic Pacer Clinic [facility] Work Phone: Start: 01-02-2016 End: 02-14-2016 Follow Up Appt 3 months Follow Up Appt 3 months [facility] Work Phone: Start: 01-02-2016 End: 02-14-2016 Pacer Clinic Pacer Clinic [facility] Work Phone: Start: 11-10-2015 End: 11-12-2015 Thyroid stimulating hormone (TSH) *TSH [facility] Work Phone: Start: 11-10-2015 End: 11-12-2015 Thyroxine (T4) *T4 (Total) [facility] Work Phone: Start: 10-31-2015 End: 10-31-2015 Follow Up Appt 3 months Follow Up Appt 3 months [facility] Work Phone: Start: 10-31-2015 End: 10-31-2015 MMM MMM [facility] Work Phone: Start: 10-31-2015 End: 02-14-2016 Thyroid stimulating hormone (TSH) *TSH [facility] Work Phone: Start: 10-29-2015 End: 02-14-2016 Follow Up Appt 3 months Follow Up Appt 3 months [facility] Work Phone: Start: 10-29-2015 End: 02-14-2016 Pacer Clinic Pacer Clinic [facility] Work Phone: Start: 09-26-2015 End: 09-26-2015 *BMP *BMP [facility] Work Phone: Start: 09-26-2015 End: 09-26-2015 *CBC with Differential *CBC with Differential [facility] Work Phone: Start: 09-26-2015 End: 09-26-2015 BNP *Brain Natriuretic Peptide BNP [facility] Work Phone: Start: 09-26-2015 End: 02-14-2016 Chest x-ray X-Ray, Chest, PA & Lateral [facility] Work Phone: Start: 09-26-2015 End: 02-14-2016 Follow Up Appt 3 months Follow Up Appt 3 months [facility] Work Phone: Start: 09-26-2015 End: 09-26-2015 Follow Up Appt Other Follow Up Appt Other [facility] Work Phone: Start: 09-26-2015 End: 02-14-2016 Pacer Clinic Pacer Clinic [facility] Work Phone: Start: 09-25-2015 End: 09-25-2015 Thyroid stimulating hormone (TSH) *TSH [facility] Work Phone: Start: 09-25-2015 End: 09-25-2015 Thyroxine (T4) *T4 (Total) [facility] Work Phone: Start: 08-13-2015 End: 08-15-2015 *Hepatic Function Panel *Hepatic Function Panel [facility] Work Phone: Start: 08-13-2015 End: 08-15-2015 Lipid panel [AGGREGATE] *Lipid Profile CC PCP [facility] Work Phone: Start: 08-10-2015 End: 08-14-2015 *BMP *BMP [facility] Work Phone: Start: 08-10-2015 End: 08-14-2015 *Hepatic Function Panel *Hepatic Function Panel [facility] Work Phone: Start: 08-10-2015 End: 08-10-2015 MANDARIN CHINESE TEACHER MANDARIN CHINESE TEACHER [facility] Work Phone: Start: 08-10-2015 End: 08-10-2015 Follow Up Appt 6 months Follow Up Appt 6 months [facility] Work Phone: Start: 08-10-2015 End: 08-14-2015 Lipid panel [AGGREGATE] *Lipid Profile CC PCP [facility] Work Phone: Start: 08-10-2015 End: 08-10-2015 Pulmonary Function Test - complete Pulmonary Function Test - complete [facility] Work Phone: Start: 08-10-2015 End: 08-14-2015 Thyroid stimulating hormone (TSH) *TSH [facility] Work Phone: Start: 08-10-2015 End: 08-14-2015 Thyroxine (T4) *T4 (Total) [facility] Work Phone: Start: 06-15-2015 End: 07-26-2015 Follow Up Appt 3 months Follow Up Appt 3 months [facility] Work Phone: Start: 06-15-2015 End: 07-26-2015 Pacer Clinic Pacer Clinic [facility] Work Phone: Start: 05-08-2015 End: 07-26-2015 Follow Up Appt 3 months Follow Up Appt 3 months [facility] Work Phone: Start: 05-08-2015 End: 07-26-2015 MMM MMM [facility] Work Phone: Start: 04-30-2015 End: 04-30-2015 Arterial exam Arterial exam [facility] Work Phone: Start: 04-30-2015 End: 07-26-2015 Follow Up Appt 1 month Follow Up Appt 1 month [facility] Work Phone: Start: 04-30-2015 End: 07-26-2015 Pacer Clinic Pacer Clinic [facility] Work Phone: Start: 04-30-2015 End: 04-30-2015 Venous doppler Venous doppler [facility] Work Phone: Start: 04-17-2015 End: 04-17-2015 MANDARIN CHINESE TEACHER MANDARIN CHINESE TEACHER [facility] Work Phone: Start: 04-17-2015 End: 04-17-2015 Follow Up Appt 1 month Follow Up Appt 1 month [facility] Work Phone: Start: 03-20-2015 End: 03-20-2015 *BMP *BMP [facility] Work Phone: Start: 03-20-2015 End: 03-20-2015 MANDARIN CHINESE TEACHER MANDARIN CHINESE TEACHER [facility] Work Phone: Start: 03-20-2015 [...] 02-13-2015 *Hepatic Function Panel *Hepatic Function Panel [facility] Work Phone: Start: 11-17-2014 End: 11-17-2014 Follow Up Appt 4 months Follow Up Appt 4 months [facility] Work Phone: Start: 11-17-2014 End: 02-13-2015 Lipid panel [AGGREGATE] *Lipid Profile CC PCP [facility] Work Phone: Start: 11-17-2014 End: 11-17-2014 MMM MMM [facility] Work Phone: Start: 11-09-2014 End: 11-15-2014 *Hepatic Function Panel *Hepatic Function Panel [facility] Work Phone: Start: 11-09-2014 End: 11-09-2014 Follow Up Appt 6 months Follow Up Appt 6 months [facility] Work Phone: Start: 11-09-2014 End: 11-15-2014 Lipid panel [AGGREGATE] *Lipid Profile CC PCP [facility] Work Phone: Start: 11-09-2014 End: 11-09-2014 MMM MMM [facility] Work Phone: Start: 08-11-2014 End: 02-13-2015 *Hepatic Function Panel *Hepatic Function Panel [facility] Work Phone: Start: 08-11-2014 End: 02-13-2015 Lipid panel [AGGREGATE] *Lipid Profile CC PCP [facility] Work Phone: Start: 2014 RSV Vaccine (1 - 1-d ose 75+ series) RSV Vaccine (1 - 1-dose 75+ series) [facility] Start: 05-12-2014 End: 05-26-2014 *BMP *BMP [facility] Work Phone: Start: 04-26-2014 End: 04-26-2014 MANDARIN CHINESE TEACHER MANDARIN CHINESE TEACHER [facility] Work Phone: Start: 04-26-2014 End: 04-26-2014 Follow Up Appt 6 months Follow Up Appt 6 months [facility] Work Phone: Start: 04-12-2014 End: 04-11-2014 *Hepatic Function Panel *Hepatic Function Panel [facility] Work Phone: Start: 04-12-2014 End: 04-11-2014 Lipid panel [AGGREGATE] *Lipid Profile CC PCP [facility] Work Phone: Start: 01-09-2014 End: 01-09-2014 *Hepatic Function Panel *Hepatic Function Panel [facility] Work Phone: Start: 01-09-2014 End: 01-09-2014 Lipid panel [AGGREGATE] *Lipid Profile CC PCP [facility] Work Phone: Start: 10-25-2013 End: 10-25-2013 Follow Up Appt 6 months Follow Up Appt 6 months [facility] Work Phone: Start: 10-25-2013 End: 10-25-2013 MMM MMM [facility] Work Phone: Start: 09-29-2013 End: 09-29-2013 Follow Up Appt 6 months Follow Up Appt 6 months [facility] Work Phone: Start: 09-29-2013 End: 09-29-2013 MM MM [facility] Work Phone: Start: 07-18-2013 End: 07-29-2013 *Hepatic Function Panel *Hepatic Function Panel [facility] Work Phone: Start: 07-18-2013 End: 07-29-2013 Lipid panel [AGGREGATE] *Lipid Profile CC PCP [facility] Work Phone: Start: 07-11-2013 End: 07-11-2013 *Hepatic Function Panel *Hepatic Function Panel [facility] Work Phone: Start: 06-03-2013 End: 06-01-2013 *Hepatic Function Panel *Hepatic Function Panel [facility] Work Phone: Start: 03-25-2013 End: 05-04-2013 *Hepatic Function Panel *Hepatic Function Panel [facility] Work Phone: Start: 03-25-2013 End: 03-25-2013 MANDARIN CHINESE TEACHER MANDARIN CHINESE TEACHER [facility] Work Phone: Start: 03-25-2013 End: [...] 11-10-2012 *Hepatic Function Panel *Hepatic Function Panel [facility] Work Phone: Start: 11-10-2012 End: 11-10-2012 Lipid panel [AGGREGATE] *Lipid Profile [facility] Work Phone: Start: 09-07-2012 End: 09-07-2012 Follow Up Appt 6 months Follow Up Appt 6 months [facility] Work Phone: Start: 09-07-2012 End: 09-07-2012 MMM MMM [facility] Work Phone: Start: 08-19-2012 End: 08-30-2012 *Hepatic Function Panel *Hepatic Function Panel [facility] [employer] Work Phone: Start: 08-19-2012 End: 08-30-2012 Lipid panel [AGGREGATE] *Lipid Profile [facility] Work Phone: Start: 03-10-2012 End: 03-10-2012 24 hour holter monitor 24 hour holter monitor [facility] Work Phone: Start: 03-10-2012 End: 03-10-2012 Follow Up Appt 6 months Follow Up Appt 6 months [facility] Work Phone: Start: 03-10-2012 End: 03-10-2012 Nuclear stress test -exercise Nuclear stress test -exercise [facility] Work Phone: Start: 08-12-2011 End: 08-12-2011 Follow Up Appt 6 months Follow Up Appt 6 months [facility] Work Phone: Start: 10-30-2010 Screening for osteoporosis Bone Density Screening [facility] Start: 1999 Hepatitis B Vaccine (1 of 3 - Risk 3-dose series) Hepatitis B Vaccine (1 of 3 - Risk 3-dose series) [facility] Start: 1999 RSV Vaccine (1 - 1-d ose 60+ series) RSV Vaccine (1 - 1-dose 60+ series) [facility] Start: 1989 SHINGRIX VACCINE (1 of 2) JIMÉNEZ GRIX VACCINE (1 of 2) [facility] Start: 1957 Anxiety Screening Anxiety Screening [facility] Bacteria identified in Urine by Culture URINE CULTURE Microbiology Routine Urinary frequency 06/05/2023 3:52 PM EST [facility] Work Phone: Bacteria identified in Urine by Culture URINE CULTURE Microbiology Routine Urgency of urination Ordered: 01/15/2024 [facility] [facility] Work Phone: Comment on above: Ordered: 01/15/2024 End: 03-27-[address] WHOLE BODY SKULL TO KNEE WO IVCON Radiology Routine MGUS (monoclonal gammopathy of unknown significance) 1 Occurrences starting 02/26/2024 until 03/27/2025 [facility] Work Phone: Comment on above: 1 Occurrences starti ng 02/26/2024 until 03/27/[address] WHOLE BODY SK ULL TO KNEE WO IVCON Radiology Routine MGUS (monoclonal gammopathy of unknown significance) 03/12/2024 4:08 PM EDT [facility] Work Phone: ECG COMPLETE [facility] Comment on above: Ordered: 02/06/2025 Glucose [Mass/volume ] in Serum or Plasma GLUCOSE, BLOOD (POC) Lab Routine Glucosuria Ordered: 06/05/2023 [facility] Work Phone: Comment on above: Ordered: 06/05/2023 End: 05-01-2025 MR Skull base WO and W contrast IV MRI SKULL BASE WO/W IVCON Radiology Routine MGUS (monoclonal gammopathy of unknown significance) Compression fracture of thoracic vertebra, unspecified thoracic vertebral level, initial encounter (HCC) Lytic bone lesions on xray 1 Occurrences starting 04/01/2024 until 05/01/2025 [facility] Comment on above: 1 Occurrences starti ng 04/01/2024 until 05/01/2025 Patient Education [facility] Work Phone: Patient referral [facility] Work Phone: End: 05-01-2025 PET+CT Whole body Bone W [id number] IV NM PET/CT WHOLE BODY INITIAL Radiology Routine MGUS (monoclonal gammopathy of unknown significance) Compression fracture of thoracic vertebra, unspecified thoracic vertebral level, initial encounter (HCC) Lytic bone lesions on xray 1 Occurrences starting 04/01/2024 until 05/01/2025 [facility] Work Phone: Comment on above: 1 Occurrences starti ng 04/01/2024 until 05/01/2025 [facility] End: 03-27-2025 XR Bones Complete Survey Views XR BONE SURVEY ROUTINE Radiology Routine MGUS (monoclonal gammopathy of unknown significance) 1 Occurrences starting 02/26/2024 until 03/27/2025 [facility] Comment on above: 1 Occurrences starti ng 02/26/2024 until 03/27/2025 XR Bones Complete Burgos rvey Views XR BONE SURVEY ROUTINE Radiology Routine MGUS (monoclonal gammopathy of unknown significance) 02/26/2024 12:28 PM EDT [facility] Immunizations Immunization Date Immunization Notes Care Provider Radha [facility] 03-26-2024 influenza, high dose seasonal, preservative-free Dr. Victor M Rocha MD Work Phone: [facility] 03-26-2024 influenza virus vacc ine, unspecified formulation Prema Sampson RN [facility] 04-28-2023 influenza (HD-IIV4) vaccine, age 65+ yr, high dose, quadrivalent, PF (FLUZONE HIGH-DOSE) Victor M oRcha MD Work Phone: [facility] 04-28-2023 influenza virus vacc ine, unspecified formulation Daniel Bucio MD Work Phone: [facility] 04-24-2022 influenza, high-dose , quadrivalent vaccine (FLUZONE HIGH DOSE QUADRIVALENT) Victor M Rocha MD Work Phone: [facility] 01-14-2022 COVID-19 vaccine, ag e 12+ yr (PFIZER-BIONTECH - BRIDGES TOP) Victor M Rocha MD Work Phone: [facility] 04-11-2021 influenza, high-dose , quadrivalent vaccine (FLUZONE HIGH DOSE QUADRIVALENT) Victor M Rocha MD Work Phone: [facility] 09-06-2020 COVID-19 vaccine, ag e 12+ yr (PFIZER-BIONTECH - PURPLE TOP) Victor M Rocha MD Work Phone: [facility] Work Phone: 08-16-2020 COVID-19 vaccine, ag e 12+ yr (PFIZER-BIONTECH - PURPLE TOP) Victor M Rocha MD Work Phone: [facility] Work Phone: 06-01-2020 influenza, high-dose , quadrivalent vaccine (FLUZONE HIGH DOSE QUADRIVALENT) Victor M Rocha MD Work Phone: [facility] Work Phone: 03-29-2019 influenza, high dose seasonal, preservative-free Victor M Rocha MD Work Phone: [facility] 05-28-2018 influenza, high dose seasonal, preservative-free Victor M Rocha MD Work Phone: [facility] Work Phone: 04-13-2017 influenza, high dose seasonal, preservative-free Victor M Rocha MD Work Phone: [facility] 03-26-2016 influenza, high dose seasonal, preservative-free Victor M Rocha MD Work Phone: [facility] 09-18-2015 pneumococcal conjuga te vaccine, 13 valent Victor M Rocha MD Work Phone: [facility] 03-29-2014 influenza, high dose seasonal, preservative-free Victor M Rocha MD Work Phone: [facility] Work Phone: 05-13-2013 influenza virus vacc ine, unspecified formulation Victor M Rocha MD Work Phone: [facility] Work Phone: 05-11-[address] Victor M Rocha Work Phone: [facility] 06-23-2012 influenza virus vacc ine, unspecified formulation Victor M Rocha MD Work Phone: [facility] 05-12-2011 influenza virus vacc ine, unspecified formulation Victor M Rocha MD Work Phone: [facility] Work Phone: 10-04-2008 pneumococcal polysaccharide vaccine, 23 valent Victor M Rocha MD Work Phone: [facility] 10-04-2008 tetanus toxoid, redu sharifa diphtheria toxoid, and acellular pertussis vaccine, adsorbed Victor M Rocha MD Work Phone: [facility] 08-18-2005 pneumococcal polysaccharide vaccine, 23 valent Victor M Rocha MD Work Phone: [facility] 08-18-[address] Xiomy Rocha Work Phone: [facility] Work Phone: 08-18-2005 pneumococcal vaccine , unspecified formulation Dr. Victor M Rocha Work Phone: [facility] Payers Date Payer Category Payer Self-pay [id number] [id number] 2004 Medicare MEDICARE MEDICAR E A AND B [id number] 2004-Present [phone] [address] [address] [place] [address] Medicare [id number] 2004 Medicare [id number] 2004 Medicare [id number] 2004 Blue [employer] Blue Shield BLUE CARD TRADITIONAL OOS [id number] 2004 Unknown ANTHEM BLUE CARD TRADITIONAL OOS [id number] 2004-Present [phone] [place] [address] Indemnity [id number] 2004 Unknown ANTHEM BLUE CARD TRADITIONAL OOS [id number] 2004-Present [phone] [place] [address] Indemnity [id number] 2004 Unknown [id number] Unknown [id number] 2.840.1.129745.3.579. 2.462 Unknown [id number] 2.840.1.905360.3.579. 2.462 Unknown [id number] 2.840.1.302254.3.579. 2.462 Unknown [id number] 2.840.1.076005.3.579. 2.462 Unknown [id number] 2.16.840.1.950775.3.579. 2.462 Unknown [id number] 2.16.840.1.882980.3.579. 2.462 Unknown [id number] 2.16.840.1.689892.3.579. 2.462 Unknown [id number] 2.16.840.1.705128.3.579. 2.462 Unknown [id number] 2.16840.1.568803.3.579. 2.462 Unknown [id number] 2.16.840.1.458282.3.579. 2.462 Unknown [id number] 2.840.1.663243.3.579. 2.462 Unknown [id number] 2.840.1.923615.3.579. 2.462 Unknown [id number] 2.840.1.035750.3.579. 2.462 Unknown [id number] 2.840.1.719879.3.579. 2.462 Unknown [id number] 2.840.1.183404.3.579. 2.462 Unknown [id number] 2.840.1.423757.3.579. 2.462 Unknown [id number] 2.16840.1.124400.3.579. 2.462 Unknown [id number] 2.840.1.008636.3.579. 2.462 Unknown [id number] 2.16840.1.013107.3.579. 2.462 Unknown [id number] 2.16840.1.264701.3.579. 2.462 Unknown [id number] 2.16.840.1.082305.3.579. 2.462 Unknown [id number] 2.16.840.1.170467.3.579. 2.462 Unknown [id number] 2.16840.1.952538.3.579. 2.462 Unknown [id number] 2.16840.1.350252.3.579. 2.462 Unknown [id number] 2.16840.1.961529.3.579. 2.462 Unknown [id number] 2.16840.1.112481.3.579. 2.462 Unknown [id number] 2.840.1.312117.3.579. 2.462 Unknown [id number] 2.840.1.623404.3.579. 2.462 Unknown [id number] 2.840.1.300980.3.579. 2.462 Social History Date Type Detail Facility Start: 03-03-2017 End: 04-06-2024 Tobacco smoking status NHIS Ex-smoker [facility] Start: 07-13-1961 End: 07-13-1981 History of tobacco use Current smoker [facility] Start: 07-13-1961 End: 07-13-1981 History of tobacco use Cigarette Smoker [facility] Start: 10-11-2021 End: 02-06-2025 Alcohol intake Current non-drinker of alcohol (finding) [facility] Start: 03-03-2017 End: 04-24-2022 Tobacco Comment Pt smoked one pack every 3 days. [facility] Start: 1940 Sex Assigned At Not on file [facility] Start: 10-01-2021 End: 01-14-2022 Exposure to SARS-CoV-2 (event) Not sure [facility] Start: 01-24-2022 End: 06-15-2023 Tobacco smoking status [facility] Unknown if ever smoked [facility] Start: 12-19-2020 None [facility] Start: 12-19-2020 Homeless [facility] Start: 12-19-2020 Non-smoker [facility] Start: 1940 Sex Assigned At Female [facility] Start: 03-03-2017 End: 04-06-2024 Tobacco use and exposure Smokeless tobacco non-user [facility] Start: 12-11-2022 End: 04-28-2023 History of Social function [facility] Start: 12-11-2022 End: 04-28-2023 Tobacco use panel [facility] Adult Depression Screening Assessment 0 [facility] (I/We) worried alina er (my/our) food would run out before (I/we) got money to buy more. Never true [facility] Work Phone: How often to you hav e a drink containing alcohol? Never [facility] Has the [employer], [employer], or [employer] threatened to shut off services in your home in past 12Mo No [facility] Medical Equipment Procedure Code Equipment Code Equipment Origin al Text Equipment Identifier Dates [id number], [id number] Start: 03-08-2020 Comment on above: TEST BLOOD SUGAR ONC E DAILY Test blood sugar(s) 1 daily. Dx: Other DM Code E 11.29 Insulin: No Pacemaker- 5 [id number] Start: 04-27-2015 Comment on above: Description: PM-ABT [id number] Assurity RV Lead 8TC-58 [id number] RA Lead [id number] ([id number]) Dual-chamber implantable pacemaker, rate-responsive ()[id number] FDA Start: 04-11-2024 Functional Status Date Assessment Result Facility 10-03-2014 Are you deaf, or do you have serious difficulty hearing No 10/03/2014 9:44 AM Kandi Thompson MA No [facility] 10-03-2014 Are you blind, or do you have serious difficulty seeing, even when wearing glasses No 10/03/2014 9:44 AM Kandi Thompson MA No [facility] 10-03-2014 Do you have serious difficulty walking or climbing stairs No 10/03/2014 9:44 AM Kandi Thompson MA No [facility] 10-03-2014 Do you have difficul ty dressing or bathing No 10/03/2014 9:44 AM Kandi Thompson MA [facility] 10-03-2014 Because of a physica l, mental, or emotional condition, do you have difficulty doing errands alone such as visiting a physician's office or shopping No 10/03/2014 9:44 AM Kandi Thompson MA No [facility] Mental Status Date Assessment Result Facility 10-03-2014 Because of a physica l, mental, or emotional condition, do you have serious difficulty concentrating, remembering, or making decisions No 10/03/2014 9:44 AM EDT Kandi Woody MA No [facility] Clinical Notes 09-10-2010 to 02-06-2025 Telephone Encounter - Ingrid Torres RN - 02/06/2025 3:17 PM EDTTelephone Encounter - Ingrid Torres RN - 02/06/2025 3:17 PM Andree Martinez RT(R) - 02/06/2025 12:30 PM EDT Note Date & Type Note Facility 02-06-2025 Telephone encounter Note Pt called and is notified of providers results. Pt voices understanding. Ingrid Torres RN [facility] 02-06-2025 Miscellaneous Notes Pt called and is notified of providers results. Pt voices understanding. Ingrid Torres RN Tried to reach pt, VM full and unable to leave message or call back number. Kandi Woody MA Please let the patient know that her chest xray showed no pneumonia or fluid around heart or lungs. Carlos House APRN.DICK documented in this encounter [facility] 02-06-2025 Telephone encounter Note Tried to reach pt, VM full and unable to leave message or call back number. Kandi Woody MA [facility] 02-06-2025 Telephone encounter Note Please let the patient know that her chest xray showed no pneumonia or fluid around heart or lungs. Carlos House APRN.DICK [facility] 02-06-2025 History of Presen t [...] PATIENT PRESENTS WITH AN IMPLANTABLE OR ATTACHED WALL WASHER: No RADIOLOGY DEPARTMENT: General X-ray: Exam(s) Completed: Chest X-Ray PERIPHERAL IV DATA: Not applicable SIGNED BY: DORENE Donald) February 06, 2025 12:43 PM documented in this encounter [facility] 02-06-2025 Note HNO ID: [id number] Author: ANDREE CLARKE RT(R) Service: ? Author Type: [place] Nurse Type: Progress Notes Filed: 02/06/2025 12:55 Note [...] PATIENT PRESENTS WITH AN IMPLANTABLE OR ATTACHED WALL WASHER: No RADIOLOGY DEPARTMENT: General X-ray: Exam(s) Completed: Chest X-Ray PERIPHERAL IV DATA: Not applicable SIGNED BY: RT Odilon(R) February 06, 2025 12:43 PM [facility] 02-06-2025 Instructions Carlos House APRN.[facility] 02/06/2025 12:01 PM EDT We discussed your [...] in the lungs. - Please call your combat information center officer's office today to inform them of your [...] as soon as possible. - Call your combat information center officer today to report your symptoms and schedule a follow-up. - If you experience worsening symptoms, go to the emergency room immediately. Please take these symptoms seriously and do not delay seeking care in the future. Call our office or your combat information center officer promptly if similar issues arise. documented in this encounter [facility] 02-06-2025 History of Presen t [...] has not reported these symptoms to her combat information center officer, Dr. Bueno, or his automotive parts counter assistant, whom she usually sees. She has [...] intraventricular block - Advised patient to contact combat information center officer Dr. Bueno's office today to report symptoms [...] which included preparing to see the patient, [id number] patient care, completing clinical documentation, obtaining and/or reviewing separately obtained history, performing a medically appropriate examination, counseling and educating the patient/family/caregiver, and ordering medications, tests, or procedures. This note was partly generated using [email or web address] voice recognition dictation and may contain some misspelled or inaccurate words missed on review. Recording using [employer] software for draft documentation of the visit was discussed with the patient/authorized sales and service representative; all questions welcomed and answered. Patient/authorized sales and service representative agreed to proceed documented in this encounter [facility] 02-06-2025 Note HNO ID: [id number] Author: CARLOS HOUSE APRN.CNP Service: ? Author [...] has not reported these symptoms to her combat information center officer, Dr. Bueno, or his automotive parts counter assistant, whom she usually sees. She has [...] intraventricular block - Advised patient to contact combat information center officer Dr. Bueno's office today to report symptoms [...] CMP today, continue with [place] Carlos House APRN.HEALTH POLICY NURSE RTO in 1 month. I spent a total of 51 minutes on the date of the service which included preparing to see the patient, [id number] patient care, completing clinical documentation, obtaining and/or reviewing separately obtained history, performing a medically appropriate examination, counseling and educating the patient/family/caregiver, and ordering medications, tests, or procedures. This note was partly generated using [email or web address] voice recognition dictation and may contain some misspelled or inaccurate words missed on review. Recording using [employer] software for draft documentation of the visit was discussed with the patient/authorized sales and service representative; all questions welcomed and answered. Patient/authorize (more content not included)... [facility] 02-02-2025 Note HNO ID: [id number] Author: PREMA SAMPSON RN Service: ? Author Type: Registered Nurse Type: Progress Notes Filed: 02/02/2025 14:50 Note Text: [facility] Telephonic Outreach Provider Action/FYI None Patient identified by Name and Date of . Discussed care with patient. Mri Special Procedures Technologist call note: Health topics discussed today: -Understanding [...] should be taking? (more content not included)... [facility] 02-02-2025 History of Presen t illness Narrative Images from the original note were not included. [facility] Telephonic Outreach Provider Action/FYI None Patient identified by Name and Date of . Discussed care with patient. Mri Special Procedures Technologist call note: Health topics discussed today: -Understanding [...] - Bi-Weekly Outreach (Recurring) Disposition Based on diploma medical assistant, the following disposition is advised: No action needed Prema Sampson RN February 02, 2025 2:47 PM documented in this encounter [facility] 02-02-2025 Note Patient Outreach (AM [facility]) ANTONIO GUPTA ([id number]) 1940 F Date Time Provider Department 02/02/25 PREMA SAMPSON During your visit today, we recorded the following information about you: Prema Sampson RN 02/02/2025 2:50 PM Signed [facility] Telephonic Outreach Provider Action/FYI None Patient identified by Name and Date of . Discussed care with patient. Mri Special Procedures Technologist call note: Health topics discussed today: -Understanding [...] To remain f (more content not included)... [facility] 01-12-2025 Note HNO ID: [id number] Author: PREMA SAMPSON RN Service: ? Author Type: Registered Nurse Type: Progress Notes Filed: 01/12/2025 13:59 Note Text: [facility] Telephonic Outreach Provider Action/FYI None Patient identified by Name and Date of . Discussed care with patient. Mri Special Procedures Technologist call note: Health topics discussed today: - Understanding kidney disease - CKD zones sent via [employer] - Renal diet basics - Signs and symptoms to report Patient does not have a Office Technology Professor - PCP manages kidney care per patient [...] CKD Education: Controlling Potassium Disposition Based on diploma medical assistant, the following disposition is advised: No action needed Prema Sampson RN January 12, 2025 1:57 PM [facility] 01-12-2025 History of Presen t illness Narrative Images from the original note were not included. [facility] Care Path Telephonic Outreach Provider Action/FYI None Patient identified by Name and Date of . Discussed care with patient. Mri Special Procedures Technologist call note: Health topics discussed today: - Understanding kidney disease - CKD zones sent via [employer]ulatet - Renal diet basics - Signs and symptoms to report Patient does not have a Office Technology Professor - PCP manages kidney care per patient [...] CKD Education: Controlling Potassium Disposition Based on diploma medical assistant, the following disposition is advised: No action needed Prema Sampson RN January 12, 2025 1:57 PM documented in this encounter [facility] 01-12-2025 Note Patient Outreach (AM [facility]) ANTONIO GUPTA ([id number]) 1940 F Date Time Provider [facility] During your visit today, we recorded the following information about you: Prema Sampson RN 01/12/2025 1:59 PM Signed [facility] Telephonic Outreach Provider Action/FYI None Patient identified by Name and Date of . Discussed care with patient. Mri Special Procedures Technologist call note: Health topics discussed today: - Understanding kidney disease - CKD zones sent via [employer]ulatet - Renal diet basics - Signs and symptoms to report Patient does not have a Office Technology Professor - PCP manages kidney care per patient [...] HTN lab care gaps addressed 12/14/2024 09/13/2024 Perma Sampson RN Complete/Scheduled Patient-stated goal addressed (add [...] CKD Education: Controlling Potassium Disposition Based on diploma medical assistant, the following disposition is advised: No action needed Prema Sampson RN January 12, 2025 1:57 PM Allergies As of Date: (more content not included)... [facility] 12-29-2024 Note HNO ID: [id number] Author: PREMA SAMPSON RN Service: ? Author Type: Registered Nurse Type: Progress Notes Filed: 12/29/2024 14:26 Note Text: [facility] Care Path Telephonic Outreach Provider Action/FYI None Patient identified by Name and Date of . Discussed care with patient. Mri Special Procedures Technologist call note: Health topics discussed today: - Goal BP reviewed - Understanding blood pressure - Talking to your doctor and when to go to the ER - Blood pressure and nutrition/Ways to lower salt in the diet - Types of antihypertensives - Importance of medication compliance Patient does not check blood pressure at home Blood pressure medications are managed by her Radiation Oncology Manager outside of [facility] Patient denies any concerns/symptoms [...] Blood Pressure AND Nutrition Disposition Based on diploma medical assistant, the following disposition is advised: No action needed Prema Sampson RN December 29, 2024 2:25 PM [facility] 12-29-2024 History of Presen t illness Narrative Images from the original note were not included. [facility] Care Path Telephonic Outreach Provider Action/FYI None Patient identified by Name and Date of . Discussed care with patient. Mri Special Procedures Technologist call note: Health topics discussed today: - Goal BP reviewed - Understanding blood pressure - Talking to your doctor and when to go to the ER - Blood pressure and nutrition/Ways to lower salt in the diet - Types of antihypertensives - Importance of medication compliance Patient does not check blood pressure at home Blood pressure medications are managed by her Radiation Oncology Manager outside of [facility] Patient denies any concerns/symptoms [...] Blood Pressure & Nutrition Disposition Based on diploma medical assistant, the following disposition is advised: No action needed Prema Sampson RN December 29, 2024 2:25 PM documented in this encounter [facility] 12-29-2024 Note Patient Outreach (AM [facility]) ANTONIO GUPTA ([id number]) 1940 F Date Time Provider Department 12/29/24 PREMA SAMPSON During your visit today, we recorded the following information about you: Prema Sampson RN 12/29/2024 2:26 PM Signed [facility] Telephonic Outreach Provider Action/FYI None Patient identified by Name and Date of . Discussed care with patient. Mri Special Procedures Technologist call note: Health topics discussed today: - Goal BP reviewed - Understanding blood pressure - Talking to your doctor and when to go to the ER - Blood pressure and nutrition/Ways to lower salt in the diet - Types of antihypertensives - Importance of medication compliance Patient does not check blood pressure at home Blood pressure medications are managed by her Radiation Oncology Manager outside of [facility] Patient denies any concerns/symptoms [...] Blood Pressure AND Nutrition Disposition Based on diploma medical assistant, the following disposition is advised: No action needed Prema Sampson RN December 29, 2024 2:25 PM Allergies As of Date: 12/29/2024 Noted Allergy Reaction POISON FANY 10/17/2005 SULFA (SULFONAMIDE ANTIBIOTICS) 10/17/2005 4 - Hives Date Reviewed: 08/12 (more content not included)... [facility] 12-15-2024 Note HNO ID: [id number] Author: PREMA SAMPSON RN Service: ? 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 [facility] 11-25-2024 Telephone encounter Note The following approved medication requests have been transmitted electronically. Requested Prescriptions Pending Prescriptions Disp Refills empagliflozin (JARDIANCE) 10 mg tablet 90 tablet 3 Sig: Take 1 tablet by mouth once daily. Take 1 tablet once daily in the morning Carlos House APRN.CNP [facility] 11-25-2024 Miscellaneous Notes The following [...] 2024 11:56 AM documented in this encounter [facility] 11-25-2024 Telephone encounter Note Next appt 02/06. [facility] 11-25-2024 Telephone encounter Note Prescription [...] Hawa Bustillo November 25, 2024 11:56 AM [facility] 11-21-2024 Note HNO ID: [id number] Author: BRIAN DONNELLY RN Service: ? Author Type: Registered Nurse Type: Progress Notes Filed: 11/21/2024 12:28 Note Text: [facility] Telephonic Outreach Provider Action/FYI Dr. Rocha: Pt was discharged home with oxygen. Treadwell like she did not need it and [...] - Bi-Weekly Outreach (Recurring) Disposition Based on diploma medical assistant, the following disposition is advised: No action needed (routed to pcp) Brian Donnelly RN November 21, 2024 12:15 PM [facility] 11-21-2024 History of Presen t illness Narrative Images from the original note were not included. [facility] Telephonic Outreach Provider Action/FYI Dr. Rocha: Pt was discharged home with oxygen. Treadwell like she did not need it and [...] - Bi-Weekly Outreach (Recurring) Disposition Based on diploma medical assistant, the following disposition is advised: No action needed (routed to pcp) Brian Donnelly RN November 21, 2024 12:15 PM documented in this encounter [facility] 11-21-2024 Note Patient Outreach (AM BC) ANTONIO GUPTA ([id number]) 1940 F Date Time Provider Department 11/21/24 BRIAN DONNELLY [facility] During your visit today, we recorded the following information about you: Brian Donnelly RN 11/21/2024 12:28 PM Signed [facility] Care Path Telephonic Outreach Provider Action/FYI Dr. Rocha: Pt was discharged home with oxygen. Treadwell like she did not need it and [...] - Bi-Weekly Outreach (Recurring) Disposition Based on diploma medical assistant, the following disposition is advised: No action [...] daily at bed (more content not included)... [facility] 11-18-2024 Evaluation note Diagnosis Onset Date Resolution Longstanding persistent atrial fibrillation chronic November 18, 2024 10:57am Presence of cardiac pacemaker April 26, 2015 chronic November 18, 2024 10:57am History of coronary artery stent placement September, resolved November 18, 2024 10:57am Essential (primary) hypertension inactive November 18, 2024 10:57am Hyperlipidemia inactive November 18 10:57am [facility] Work Phone: 1(976) 929-755304-18-2025 NoteHNO ID: [id number] Author: PREMA SAMPSON RN Service: ? Author Type: Registered Nurse Type: Progress Notes Filed: 10/28/2024 11:49 Note Text: CDM Care Path Telephonic Outreach Provider Action/FYI None Patient identified by Name and Date of . Discussed care with patient. Mri Special Procedures Technologist call note: Health topics discussed today: - Understanding heart failure - Heart failure zones sent via [employer] - Importance of monitoring weight and reporting [...] - Bi-Weekly Outreach (Recurring) Disposition Based on diploma medical assistant, the following disposition is advised: No action needed Prema Sampson RN October 28, 2024 11:46 [place] [address]-18-2025 History of Present illness Narrative* Prema Sampson RN - 10/28/2024 11:46 AM EDT Images from the original note were not included. [facility] Telephonic Outreach Provider Action/FYI None Patient identified by Name and Date of . Discussed care with patient. Mri Special Procedures Technologist call note: Health topics discussed today: - Understanding heart failure - Heart failure zones sent via [employer] - Importance of monitoring weight and reporting [...] - Bi-Weekly Outreach (Recurring) Disposition Based on diploma medical assistant, the following disposition is advised: No action needed Prema Sampson RN October 28, 2024 11:46 AM [facility] NotePatient Outreach (AMBCMG) ANTONIO GUPTA ([id number]) 1940 F Date Time Provider Department 10/28/24 PREMA SAMPSON AMB[facility]IN During your visit today, we recorded the following information about you: Prema Sampson RN 10/28/2024 11:49 AM Signed CD Care Path Telephonic Outreach Provider Action/FYI None Patient identified by Name and Date of . Discussed care with patient. Mri Special Procedures Technologist call note: Health topics discussed today: - Understanding heart failure - Heart failure zones sent via [employer] - Importance of monitoring weight and reporting [...] - Bi-Weekly Outreach (Recurring) Disposition Based on diploma medical assistant, the following disposition is advised: No action needed Prema (more content not included)...[facility]04-17-2025 Telephone encounter Note* Telephone Encounter - Carlos House APRN.HEALTH POLICY NURSE - 10/27/2024 12:57 PM EDT The following approved medication requests have been transmitted electronically. Requested Prescriptions Pending Prescriptions Disp Refills levothyroxine (SYNTHROID) 100 mcg tablet 90 tablet 3 Sig: Take 1 tablet by mouth once daily. Carlos House APRN.CNP [facility]04-17-2025 Miscellaneous Notes* Telephone Encounter - [...] 27, 2024 9:54 AM documented in [facility]04-[facility]25 Telephone encounter Note * Telephone [...] Yovana Guerra October 27, 2024 9:54 AM [facility]03-28-2025 NoteHNO ID: [id number] Author: PREMA SAMPSON RN Service: ? Author Type: Registered Nurse Type: Progress Notes Filed: 10/07/2024 13:00 Note Text: CDM Care Path Telephonic Outreach Provider Action/FYI None Patient identified by Name and Date of . Discussed care with patient. Mri Special Procedures Technologist call note: Health topics discussed today: -How [...] - Bi-Weekly Outreach (Recurring) Disposition Based on diploma medical assistant, the following disposition is advised: No action needed Prema Sampson RN October 07, 2024 12:59 [facility]03-28-2025 History of Present illness Narrative* Prema Sampson RN - 10/07/2024 12:59 PM EDT Images from the original note were not included. [facility] Telephonic Outreach Provider Action/FYI None Patient identified by Name and Date of . Discussed care with patient. Mri Special Procedures Technologist call note: Health topics discussed today: -How [...] - Bi-Weekly Outreach (Recurring) Disposition Based on diploma medical assistant, the following disposition is advised: No action needed Prema Sampson RN October 07, 2024 12:59 PM [facility] in [facility]03[facility]25 NotePatient Outreach (AMBCMG) ANTONIO GUPTA ([id number]) 1940 F Date Time Provider Department 10/07/24 PREMA SAMPSON During your visit today, we recorded the following information about you: Prema Sampson RN 10/07/2024 1:00 PM Signed [facility] Care Path Telephonic Outreach Provider Action/FYI None Patient identified by Name and Date of . Discussed care with patient. Mri Special Procedures Technologist call note: Health topics discussed today: -How [...] - Bi-Weekly Outreach (Recurring) Disposition Based on diploma medical assistant, the following disposition is advised: No action [...] (0.035 %) o (more content not included)... [facility]03-04-2025 NoteHNO ID: [id number] Author: PREMA SAMPSON RN Service: ? Author Type: Registered Nurse Type: Progress Notes Filed: 09/13/2024 11:02 Note Text: CD ENROLLMENT Provider Action / FYI: None Patient identified by name and date of . Discussed care with patient. Mri Special Procedures Technologist call note: Health topics discussed today: - [...] (add to Target comments) Disposition Based on diploma medical assistant, the following disposition is advised: No action needed Prema Sampson RN September 13, 2024 11:01 [facility]03-04-2025 History of Present illness Narrative* Prema Sampson RN - 09/13/2024 11:01 AM EST [facility] ENROLLMENT Provider Action / FYI: None Patient identified by name and date of . Discussed care with patient. Mri Special Procedures Technologist call note: Health topics discussed today: - [...] (add to Target comments) Disposition Based on diploma medical assistant, the following disposition is advised: No action needed Prema Sampson RN September 13, 2024 11:01 AM documented in this encounterW[facility]03-[facility]-2025 NotePatient Outreach (AMBCMG) ANTONIO GUPTA ([id number]) 1940 F Date Time Provider Department 09/13/24 PREMA SAMPSON During your visit today, we recorded the following information about you: Prema Sampson RN 09/13/2024 11:02 AM Signed CDM ENROLLMENT Provider Action / FYI: None Patient identified by name and date of . Discussed care with patient. Mri Special Procedures Technologist call note: Health topics discussed today: - [...] (add to Target comments) Disposition Based on diploma medical assistant, the following disposition is advised: No action needed Prema Sampson RN September 13, 2024 11:01 AM Allergies As of Date: 09/13/2024 Noted Allergy Reaction POISON FANY 10/17/2005 SULFA (SULFONAMIDE ANTIBIOTICS) 10/17/2005 4 - Hives Date Review (more content not included)...[facility]01-31-2025 Note* Addendum Note - Carlos House APRN.CNP - 08/12/2024 1:27 PM ESTAddended by: CARLOS HOUSE on: 08/12/2024 01:27 PM Modules accepted: Level of Service [facility]01-31-2025 Miscellaneous Notes* Addendum Note - Carlos House APRN.CNP - 08/12/2024 1:27 PM ESTAddended by: CARLOS HOUSE on: 08/12/2024 01:27 PM Modules accepted: Level of Service documented in this encounterW[facility]01-31-2025 History of Present illness Narrative* [...] - Personalized prevention plan provided Carlos House APRN.HEALTH POLICY NURSE Additional Concerns The following concerns were also [...] I50.32 -Stable, continue medications, continue following with [facility] 3. Hyperlipidemia, unspecified hyperlipidemia type [...] empagliflozin Carlos House APRN.DICK documented in this encounterW[facility]01-31-2025 NoteHNO ID: [id number] Author: CARLOS HOUSE APRN.DICK Service: ? Author [...] - Personalized prevention plan provided Carlos House APRN.HEALTH POLICY NURSE Additional Concerns The following concerns were also [...] 15.6 (H) Platelet C (more content not included)...[facility]11-12-2024 Telephone encounter Note* Telephone Encounter - Kandi Woody MA - 05/24/2024 3:01 PM EST Faxed. Kandi Woody MA [facility]11-12-2024 Miscellaneous Notes* Telephone Encounter - Kandi Woody MA - 05/24/2024 3:01 PM EST Faxed. Kandi Woody MA * Telephone Encounter - Kandi Woody MA - 05/24/2024 1:20 PM EST Type of letter/form/fax request - Overnight Pulse Ox order Form received from fax on 1 floor and placed on MD desk (Dr. Rocha) for completion. Completed form needs to be [place] [facility] [place] [phone]. [employer] requesting PCP sign order to complete an overnight pulse oximetry report on room air for pt. Route to PA when form completed for processing documented in this encounterW[facility]11-12-2024 Telephone encounter Note * Telephone Encounter - Kandi Woody MA - 05/24/2024 1:20 PM EST Type of letter/form/fax request - Overnight Pulse Ox order Form received from fax on 1 floor and placed on MD desk (Dr. Rocha) for completion. Completed form needs to be fax[place] to [facility] [place] [phone]. [employer] requesting PCP sign order to complete an overnight pulse oximetry report on room air for pt. Route to PA when form completed for processing [facility]11-04-2024 Telephone encounter Note* Telephone Encounter - Victor M Rocha MD - 05/16/2024 2:28 PM EST Noted Victor M Rocha MD [facility]11-04-2024 Miscellaneous Notes* Telephone Encounter - [...] it maybe. Advised patient to call her combat information center officer to go over her meds from them to see if it maybe their meds. Patient will call back if needed. Gisselle Banda LPN documented in this encounterW[facility]11-04-2024 Telephone encounter Note * Telephone [...] it maybe. Advised patient to call her combat information center officer to go over her meds from them to see if it maybe their meds. Patient will call back if needed. Gisselle Banda LPN [facility]11-04-2024 Telephone encounter Note* Telephone Encounter - Kandi Woody MA - 05/16/2024 9:41 AM EST Faxed. Kandi Woody MA [facility]11-04-2024 Miscellaneous Notes* Telephone Encounter - Kandi Woody MA - 05/16/2024 9:41 AM EST Faxed. Kandi Woody MA * Telephone Encounter - Victor M Rocha MD - 05/13/2024 5:28 PM EDT Form done Victo rM Rocha MD * Telephone Encounter - Cara Herring MA - 05/13/2024 2:31 PM EDT Type of form: Stop Anticoagulant prior to to pain management procedure. [facility]. Pt takes Xarelto daily, asking to be off two days prior to procedure. Form received via fax When form is completed, Fax form to [phone] Form has been forwarded to Physician Desk: Dr. Rocha. Cara Herring MA documented in this encounterW[facility]11-01-2024 Telephone encounter Note * Telephone Encounter - Victor M Rocha MD - 05/13/2024 5:28 PM EDT Form done Victor M Rocha MD [facility]11-01-2024 Telephone encounter Note* Telephone Encounter - Cara Herring MA - 05/13/2024 2:31 PM EDT Type of form: Stop Anticoagulant prior to to pain management procedure. [facility]. Pt takes Xarelto daily, asking to be off two days prior to procedure. Form received via fax When form is completed, Fax form to [phone] Form has been forwarded to Physician Desk: Dr. Rocha. Cara Herring MA [facility]10-25-2024 Telephone encounter Note* Telephone Encounter - Victor M Rocha MD - 05/06/2024 3:45 PM EDT OK to refill as ordered Victor M Rocha MD [facility]10-25-2024 Miscellaneous Notes* Telephone Encounter - Victor M Rocha MD - 05/06/2024 3:45 PM EDT OK to refill as ordered Victor M Rocha MD * Telephone Encounter - Elana Key RN - 05/06/2024 3:26 PM EDT Recent Office Visits - This Specialty 04/06/2024 Hospital discharge follow-up Family Medicine Yovana Kumar, DEANNA.HEALTH POLICY NURSE 02/01/2024 Type 2 diabetes mellitus with other diabetic kidney complication, without long-term current use of insulin ([facility]) Family Medicine Victor M Cornejo MD 12/24/2023 Chronic diastolic CHF (congestive heart failure) ([facility]) Family Medicine Victor M Cornejo MD NOV: [...] 06, 2024 1:54 PM documented in this encounterW[facility]10[facility]-2024 Telephone encounter Note * Telephone Encounter - Elana Key RN - 05/06/2024 3:26 PM EDT Recent Office Visits - This Specialty 04/06/2024 Hospital discharge follow-up Family Medicine Yovana Kumar, DEANNA.HEALTH POLICY NURSE 02/01/2024 Type 2 diabetes mellitus with other diabetic kidney complication, without long-term current use of insulin ([facility]) Family Medicine Victor M Cornejo MD 12/24/2023 Chronic diastolic CHF (congestive heart failure) (HCC) Family Medicine Victor M Cornejo MD NOV: Visit date not found Last 1 Encounter BP Readings: Date: BP: 04/06/2024 127/77 Hemoglobin A1C (%) Date Value 01/27/2024 6.8 03/22/2021 8.3 Orders Pended Elana Key RN [facility]10-25-2024 Telephone encounter Note* Telephone Encounter [...] Owen Peraza May 06, 2024 1:54 PM [facility] Work Phone: 1(846) 300-372610-10-2024 NoteHNO ID: [id number] Author: IVELISSE LUIS RN Service: ? Author Type: Registered Nurse Type: Progress Notes Filed: 04/21/2024 11:38 Note Text: Transitional Care Management (TCM) Follow-Up Note PCP Update / Actionable Items N/A - No specialty updates needed Patient Source: Chv-zq-Wxzovpg (OON) Discharge Outreach Summary: Pt states she [...] and rotating with Tylenol. Patient discharged from [facility] Discharge date: 03/29/24 Admitted for: CHF /SOB [...] Ivelisse Luis RN April 21, 2024 11:24 [facility]10-10-2024 History of Present illness Narrative* Ivelisse Luis RN - 04/21/2024 11:20 AM EDT Transitional Care Management (TCM) Follow-Up Note PCP Update / Actionable Items N/A - No specialty updates needed Patient Source: Vhc-lw-Uaxmfyl (OON) Discharge Outreach Summary: Pt states she [...] and rotating with Tylenol. Patient discharged from [facility] Discharge date: 03/29/24 Admitted for: CHF /SOB [...] 21, 2024 11:24 AM documented in this encounterW[facility]10-10-2024 NotePatient Outreach (AMBCMG) ANTONIO GUPTA ([id number]) 1940 F Date Time Provider Department 04/21/24 IVELISSE LUIS AMBCMXochilt During your visit today, we recorded the following information about you: Ivelisse Luis RN 04/21/2024 11:38 AM Signed Transitional Care Management (TCM) Follow-Up Note PCP Update / Actionable Items N/A - No specialty updates needed Patient Source: Qdi-kc-Odawnka (OON) Discharge Outreach Summary: Pt states she [...] and rotating with Tylenol. Patient discharged from [facility] Discharge date: 03/29/24 Admitted for: CHF /SOB [...] of 04/24/2022: Using [employer] (more content not included)...[facility]10-04-2024 Telephone encounter Note* Telephone Encounter - Carlos House APRN.HEALTH POLICY NURSE - 04/15/2024 9:06 AM EDT The following approved medication requests have been transmitted electronically. Requested Prescriptions Pending Prescriptions Disp Refills busPIRone (BUSPAR) 15 mg tablet 270 tablet 3 Sig: Take 1 tablet by mouth three times a day. Carlos House APRN.CNP [facility]10-04-2024 Miscellaneous Notes* Telephone Encounter - [...] 15, 2024 9:03 AM documented in this encounterWooster [facility] Hospital10-04-2024 Telephone encounter Note * Telephone [...] Cruz RN April 15, 2024 9:03 AM [facility]09-26-2024 NoteHNO ID: [id number] Author: IVELISSE LUIS RN Service: ? Author Type: Registered Nurse Type: Progress Notes Filed: 04/07/2024 13:12 Note Text: Transitional Care Management (TCM) Follow-Up Note PCP Update / Actionable Items N/A - No specialty updates needed Patient Source: Fgp-vx-Oowakty (OON) Discharge Outreach Summary: Pt reports is has been a busy week with follow up appts and has been scheduled 04/11 to have her pacemaker replaced . TCM will continue to follow. Patient discharged from [facility] Discharge date: 03/29/24 Admitted for: CHF /SOB Readmission Risk: n/a Value-Based Contract: ACO Copied from [employer]: Narrative: Patient is a 83-year-old woman who [...] Ivelisse Luis RN April 07, 2024 1:09 [facility]09-26-2024 History of Present illness Narrative* Ivelisse Luis RN - 04/07/2024 12:58 PM EDT Transitional Care Management (TCM) Follow-Up Note PCP Update / Actionable Items N/A - No specialty updates needed Patient Source: Evj-dj-Nfddgjl (OON) Discharge Outreach Summary: Pt reports is has been a busy week with follow up appts and has been scheduled 04/11 to have her pacemaker replaced . TCM will continue to follow. Patient discharged from [facility] Discharge date: 03/29/24 Admitted for: CHF /SOB Readmission Risk: n/a Value-Based Contract: ACO Copied from [employer]: Narrative: Patient is a 83-year-old woman who [...] 07, 2024 1:09 PM documented in this encounterWooster [facility] Hospital09-26-2024 NotePatient Outreach (AMBCMG) ANTONIO GUPTA ([id number]) 1940 F Date Time Provider Department 04/07/24 IVELISSE LUIS During your visit today, we recorded the following information about you: Ivelisse Luis RN 04/07/2024 1:12 PM Signed Transitional Care Management (TCM) Follow-Up Note PCP Update / Actionable Items N/A - No specialty updates needed Patient Source: Yfk-is-Ktaqbhg (OON) Discharge Outreach Summary: Pt reports is has been a busy week with follow up appts and has been scheduled 04/11 to have her pacemaker replaced . TCM will continue to follow. Patient discharged from [facility] Discharge date: 03/29/24 Admitted for: CHF /SOB Readmission Risk: n/a Value-Based Contract: ACO Copied from [employer]: Narrative: Patient is a 83-year-old woman who [...] - acetaminophen (TYLENOL EXTR (more content not included)...[facility]09-25-2024 Telephone encounter Note* Telephone Encounter - Joshua Baker DO - 04/06/2024 3:10 PM EDT Okay. Thank you. Joshua Baker DO [facility] Work Phone: 1(657) 541-274509-25-2024 Miscellaneous Notes* Telephone Encounter - Joshua Baker [...] is scheduled. Shara Delgado documented in this encounterWooster [facility] Hospital09-25-2024 Telephone encounter Note * Telephone Encounter - Gemma Argueta RN - 04/06/2024 1:58 PM EDT Patient is refusing to schedule the PET scan or any appointment with our office going forward. She will call our office if she changes her mind. Gemma Argueta RN [facility]09-25-2024 Instructions* Patient Instructions* Yovana Painter APRN.CNP - 04/06/2024 11:48 AM EDT Continue to take all medication as prescribed. Keep scheduled appointment with cardiology next week Monitor symptoms at home Any worsening symptoms go to ER Follow up as scheduled. documented in this encounterWooster [facility] Hospital09-25-2024 History of Present illness Narrative* [...] ox was 82% in office. Which facility: [facility] Date of visit: 03/25/2024-03/29/2024 Diagnosis: Acute exacerbation [...] Coronary atherosclerosis of unspecified type of vessel, nulato or graft Stent x 2010 Depressive disorder, [...] both eyes twice daily. blood sugar diagnostic (ImmusanT VERIO TEST STRIPS) test strip TEST BLOOD [...] discussed and patient voices understanding. Yovana Painter APRN.HEALTH POLICY NURSE This note was partially generated using Dragon voice recognition system. Note was reviewed for accuracy. There may be minor misspellings or grammar miscues with [email or web address] voice recognition. documented in this encounterWooster [facility] Hospital09-25-2024 NoteHNO ID: [id number] Author: YOVANA PAINTER APRN.CNP Service: ? Author [...] ox was 82% in office. Which facility: [facility] Date of visit: 03/25/2024-03/29/2024 Diagnosis: Acute exacerbation [...] Coronary atherosclerosis of unspecified type of vessel, nulato or graft Stent x 2010 Depressive disorder, [...] both eyes twice daily. blood sugar diagnostic (ImmusanT VERIO TEST STRIPS) test strip TEST BLOOD [...] date: 07/13/1962 Quit date: (more content not included)...[facility] 04-05-2024 Telephone encounter Note* Telephone Encounter - Joshua Baker DO - 04/05/2024 5:05 PM EDT Would she be willing to at least have the PET scan? Joshua Baker DO [facility]09-24-2024 Telephone encounter Note* Telephone Encounter - Vesta Jett - 04/05/2024 3:47 PM EDT Patient called stating she does not want any appointments in department. She canceled bmbx and pet scan. She did not want to reschedule. [facility] Work Phone: 1(669) 245-830509-24-2024 Telephone encounter Note* Telephone Encounter - Belle Fajardo LPN - 04/05/2024 1:16 PM EDT Patient is scheduled for PET scan 04/18/2024. Belle Fajardo LPN [facility] [facility] M[facility] Notes* Telephone Encounter - [...] whom you spoke. F Staff Rad: Neuro [phone] The potential risks of the MRI exam [...] / MRI Safety Team documented in this encounterSergio Ville 30465-24-2024 Telephone encounter Note * Telephone Encounter - Joshua Baker DO - 04/05/2024 12:57 PM EDT Julius. She will need a whole body PET rather than MRI. Joshua Baker DO [facility] Work Phone: 1(482) 949-806809-24-2024 Telephone encounter Note* Telephone Encounter - Phan [...] of the radiologist with whom you spoke. [facility] Staff Rad: Neuro [phone] The potential risks of the MRI exam [...] MR Imaging Education / MRI Safety Team [facility]09-20-2024 Telephone encounter Note* Telephone Encounter - Shara Delgado - 04/01/2024 9:27 AM EDT Check out comments: -MRI and PET when able -BMBX here -F/U 7-10 days after PET & BMBX scheduled. MRI must be triaged/scheduled at [facility] due to having a pacemaker. Please schedule OV once MRI is scheduled. Shara Delgado [facility]09-20-2024 Instructions* Patient Instructions* Joshua Baker DO - 04/01/2024 9:00 AM EDT Hold Xarelto day prior to biopsy and resume the day after bone marrow biopsy. documented in this encounterWooster [facility]09-[facility]-2024 NoteHNO ID: [id number] Author: JOSHUA BAKER DO Service: ? Author [...] since 2014. 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 Root for increased fatigue and was [...] taking aspirin along with Xarelto. 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 HPI: The patient is an 83 year-old female with history of arrhythmia, status post pacemaker and radiofrequency ablation. Patient had been on Xarelto for atrial fibrillation since 2014. 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 Root for increased fatigue and was [...] taking aspirin along with Xarelto. Has h/o IL (PCI with stents), atrial fibrillation (on rivaroxaban), [...] Admitted for CHF. Diuresed. Reviewed electronic record [facility]. Breathing much better. PMH, medications and allergies [...] Review (MPA) Reviewed by Yong Altamirano MD [place] [facility], Serum 3.3 - 19.4 mg/L 70.4 [...] preparing to see the patient (records from [facility]), ivir-kq-rnak patient care, completing clinical documentation, obtaining and/orreviewing separately obtained history, counseling and educating the patient/family/caregiver, ordering medications, tests, or procedures, communicating with other HCPs (not separately reported), and communicating results to the patient/family/caregiver. Joshua Baker DO documented in this encounterW[facility]09-[facility]-2024 Telephone encounter Note * Telephone Encounter - Yovana Painter APRN.CNP - 03/31/2024 3:17 PM EDT Noted Yovana Painter APRN.CNP [facility]09-19-2024 Miscellaneous Notes* Telephone Encounter - Yovana Painter APRN.CNP - 03/31/2024 3:17 PM EDT Noted Yovana Painter APRN.CNP * Telephone Encounter - Gisselle Banda LPN - 03/31/2024 11:31 AM EDT Phan from [facility] calling: Yesterday HH initiated and started Today 03/31/24- patient wishes to d/c services. PATIENT's is there and is managing O2 well. Tomorrow 04/01/24- [facility] well be d/c'd Please review Gisselle Banda LPN documented in this encounterWooster [facility]09-[facility]-2024 Telephone encounter Note * Telephone Encounter - Gisselle Banda LPN - 03/31/2024 11:31 AM EDT Phan from [facility] calling: Yesterday HH initiated and started Today 03/31/24- patient wishes to d/c services. PATIENT's is there and is managing O2 well. Tomorrow 04/01/24- [facility] well be d/c'd Please review Gisselle Banda LPN [facility]09-18-2024 Telephone encounter Note* Telephone Encounter - Shanti Astorga RN - 03/30/2024 3:54 PM EDT Fanny, nurse with [facility] calling with the following: Update: Nursing Plan [...] these medications. Please call Fanny with reply: [phone] Thank you. [facility]09-18-2024 Miscellaneous Notes* Telephone Encounter - Shanti Astorga RN - 03/30/2024 3:54 PM EDT Fanny, nurse with [facility] calling with the following: Update: Nursing Plan [...] these medications. Please call Fanny with reply: [phone] Thank you. documented in this encounterWooster [facility]09-18-2024 NoteHNO ID: [id number] Author: IVELISSE LUIS RN Service: ? Author Type: Registered Nurse Type: Progress Notes Filed: 03/30/2024 09:41 Note Text: Transition Care Management (TCM) Initial Outreach PCP Update / Actionable Items HRTIC TCM Home Visit Referral Source of Stratification: TCM [facility]UB Hospital Admission Status: Discharged Readmission Risk Score: n/a Patient's zip code: [address] Is zip code within program service area: No Patient meets program referral criteria: No Patient does not qualify for High Risk TCM Home Visit program due to: Readmission Risk Score does not meet criteria Disposition: Patient does not qualify for HRTIC, will provide TCM outreach follow-up for 30-days Patient Source: Suj-um-Hvqwpcf (OON) Discharge Outreach Summary: Pt reports feeling [...] and when to call Patient discharged from [facility] Discharge date: 03/29/24 Admitted for: CHF Readmission Risk: n/a Value-Based Contract: ACO Contact: Contact made with patient: Yes Hi, my name is Ivelisse Luis RN and I am calling from the [facility] on behalf of your Primary [...] you? Yes Name of Home Care Agency: [facility] Phone number, if available: [phone] Start of Home Care services date: Today [...] like to speak with a social work steam conditioner operator to help give you support for any [...] I will send your request to a account officer who will contact and assist you with [...] / completed during ou (more content not included)...[facility]09-18-2024 History of Present illness Narrative* Ivelisse Luis RN - 03/30/2024 9:22 AM EDT Transition Care Management (TCM) Initial Outreach PCP Update / Actionable Items HRTIC TCM Home Visit Referral Source of Stratification: TCM HUB Hospital Admission Status: Discharged Readmission Risk Score: n/a Patient's zip code: [address] Is zip code within program service area: No Patient meets program referral criteria: No Patient does not qualify for High Risk TCM Home Visit program due to: Readmission Risk Score does not meet criteria Disposition: Patient does not qualify for HRTIC, will provide TCM outreach follow-up for 30-days Patient Source: Yho-kj-Qthpuhk (OON) Discharge Outreach Summary: Pt reports feeling [...] and when to call Patient discharged from [facility] Discharge date: 03/29/24 Admitted for: CHF Readmission Risk: n/a Value-Based Contract: ACO Contact: Contact made with patient: Yes Hi, my name is Ivelisse Luis RN and I am calling from the [facility] on behalf of your Primary [...] Yes Name of Home Care Agency: [facility] Phone number, if available: [phone] Start of Home Care services date: Today [...] like to speak with a social work steam conditioner operator to help give you support for any [...] I will send your request to a account officer who will contact and assist you with [...] 30, 2024 9:28 AM documented in this encounterWooster [facility]09-18-2024 NotePatient Outreach (AMBCMG) ANTONIO GUPTA ([id number]) 1940 F Date Time Provider Department 03/30/24 IVELISSE LUIS During your visit today, we recorded the following information about you: Ivelisse Luis RN 03/30/2024 9:41 AM Signed Transition Care Management (TCM) Initial Outreach PCP Update / Actionable Items HRTIC TCM Home Visit Referral Source of Stratification: [facility] Hospital Admission Status: Discharged Readmission Risk Score: n/a Patient's zip code: [address] Is zip code within program service area: No Patient meets program referral criteria: No Patient does not qualify for High Risk TCM Home Visit program due to: Readmission Risk Score does not meet criteria Disposition: Patient does not qualify for HRTIC, will provide TCM outreach follow-up for 30-days Patient Source: Guj-vp-Vganomi (OON) Discharge Outreach Summary: Pt reports feeling [...] and when to call Patient discharged from [facility] Discharge date: 03/29/24 Admitted for: CHF Readmission Risk: n/a Value-Based Contract: ACO Contact: Contact made with patient: Yes Hi, my name is Ivelisse Luis RN and I am calling from the [facility] on behalf of your Primary [...] you? Yes Name of Home Care Agency: [facility] Phone number, if available: [phone] Start of Home Care services date: Today [...] like to speak with a social work steam conditioner operator to help give you support for any [...] I will send your request to a account officer who will contact and assist you with [...] Following a low sodium (more content not included)...[facility]09-17-2024 Telephone encounter Note* Telephone Encounter - Paty Alan LPN - 03/29/2024 2:01 PM EDT Yovana with [facility] notified. Verbalized understanding. [facility]09-17-2024 Miscellaneous Notes* Telephone Encounter - Paty Alan LPN - 03/29/2024 2:01 PM EDT Yovana with [facility] notified. Verbalized understanding. * Telephone Encounter - Carlos House APRN.CNP - 03/29/2024 1:59 PM EDT Please let her know that Dr. Rocha's team will follow home health care orders. Okay to proceed. Carlos House APRN.CNP * Telephone Encounter - Rose Manuel LPN - 03/29/2024 1:57 PM EDT Yovana with [facility] calls to report pt was getting discharged today from [facility]. Pt has orders for Nursing, PT, and OT. Pt is getting sent home with new O2. Yovana is requesting provider's VO that pcp will follow pt while in HH. Rose Manuel LPN documented in this encounterWooster [facility]09-17-2024 Telephone encounter Note * Telephone Encounter - Carlos House APRN.CNP - 03/29/2024 1:59 PM EDT Please let her know that Dr. Rocha's team will follow home health care orders. Okay to proceed. Carlos House APRN.DICK [facility]09-17-2024 Telephone encounter Note* Telephone Encounter - Rose Manuel LPN - 03/29/2024 1:57 PM EDT Yovana with [facility] HH calls to report pt was getting discharged today from [facility]. Pt has orders for Nursing, PT, and OT. Pt is getting sent home with new O2. Yovana is requesting provider's VO that pcp will follow pt while in HH. Rose Manuel LPN [facility]09-17-2024 [facility] Medical Records Department [address] [place] [address] Discharge Summary 03/29/24 1133 MR#: [id number] Acct: [id number] Name: ANTONIO GUPTA Rep #: [id number] : 1940 83 From: Juice Elizabeth DO PCP: Dr. 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 ED on 03/25/2024 with worsening shortness [...] fro (more content not included)...[facility]09-17-2024 Telephone encounter Note* Telephone Encounter - Vesta Jett - 03/29/2024 10:57 AM EDT Scheduled with Nitin [facility] Work Phone: 1(658) 506-914309-17-2024 Miscellaneous Notes* Telephone Encounter - Vesta Jett [...] call Nitin to schedule documented in this encounterWooster [facility] Hospital09-16-2024 Telephone encounter Note * Telephone Encounter - Shara Delgado - 03/28/2024 2:13 PM EDT Left message for Nitin to return call. When she calls, please schedule an EST SIMPLE with Dr. Bhatia instructed below. Shararoe Delgado [facility]09-16-2024 Telephone encounter Note* Telephone Encounter - Joshua Baker DO - 03/28/2024 12:47 PM EDT Simple visit would be fine. Can use a chemotherapy visit slot if needed. [facility] Work Phone: 1(930) 127-705909-16-2024 Telephone encounter Note* Telephone Encounter - Vesta Jett - 03/28/2024 10:50 AM EDT Nitin,daughter called stating patient was unable to finish 03/[address] Baker due to being sent to hospital. She is calling to reschedule. Please advise if this is just a simple office visit or if any testing/lab need to be done prior. Please call Nitin to schedule [facility]09-13-2024 NoteHNO ID: [id number] Author: JOSHUA BAKER DO Service: ? Author [...] since 2014. 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 Root for increased fatigue and was [...] taking aspirin along with Xarelto. Has h/o IL (PCI with stents), atrial fibrillation (on rivaroxaban), [...] Review (MPA) Reviewed by Yong Altamirano MD [place] [facility], Serum 3.3 - 19.4 mg/L 70.4 [...] she is hypoxemic. Plan: -To ED at [facility]. -Spoke to Dr. Dodge. Portions of this documentation were copied and pasted from previous office visit notes in order to provide a cohesive continuity of the history. The note has been reviewed and edited and updated as necessary. 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 HPI: The patient is an 83 year-old female with history of arrhythmia, status post pacemaker and radiofrequency ablation. Patient had been on Xarelto for atrial fibrillation since 2014. 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 Root for increased fatigue and was [...] taking aspirin along with Xarelto. Has h/o IL (PCI with stents), atrial fibrillation (on rivaroxaban), [...] Review (MPA) Reviewed by Yong Altamirano MD [place] Free, Serum 3.3 - 19.4 mg/L 70.4 [...] she is hypoxemic. Plan: -To ED at [facility]. -Spoke to Dr. Dodge. Portions of this documentation were copied and pasted from previous office visit notes in order to provide a cohesive continuity of the history. The note has been reviewed and edited and updated as necessary. I spent a total of 20 minutes on the date of the service which included preparing to see the patient, vvfv-kq-gfad patient care, completing clinical documentation, obtaining and/or reviewing separately obtained history, performing a medically appropriate examination, counseling and educating the pat ient/family/caregiver, ordering medications, tests, or procedures, communicating with other HCPs (not separately reported), and communicating results to the patient/family/caregiver. Joshua Baker DO documented in this encounterW[facility]09-13-2024 Telephone encounter Note * Telephone [...] SYMPTOMS: Denies other symptoms. Protocols used: Breathing Ddwqhnnafl-PLVJY-LA [facility]09-13-2024 Miscellaneous Notes* Telephone Encounter - [...] SYMPTOMS: Denies other symptoms. Protocols used: Breathing Ktstoaiimh-[id number]-FG documented in this encounterWooster [facility] Hospital08-22-2024 Telephone encounter Note * Telephone Encounter - Yovana Painter APRN.CNP - 03/03/2024 11:04 AM EDT The following approved medication requests have been transmitted electronically. Requested Prescriptions Pending Prescriptions Disp Refills omeprazole (PRILOSEC) 40 mg capsule 90 capsule 3 Sig: Take 1 capsule by mouth once daily. Yovana Painter APRN.CNP [facility]08-22-2024 Miscellaneous Notes* Telephone Encounter - [...] 03, 2024 9:45 AM documented in this encounterWooster [facility] Hospital08-22-2024 Telephone encounter Note * Telephone [...] capsule by mouth once daily. Antonio Kc [facility] March 03, 2024 9:45 AM [facility]08-22-2024 Telephone encounter Note* Telephone Encounter - Shara Delgado - 03/03/2024 9:39 AM EDT Spoke with patient and scheduled. Shara Delgado [facility]08-22-2024 Miscellaneous Notes* Telephone Encounter - [...] week after the CT. documented in this encounterWooster Community Hospital08-22-2024 Telephone encounter Note * Telephone Encounter - Belle Fajardo LPN - 03/03/2024 8:05 AM EDT Patient is aware of all information. PSS- please contact patient to schedule an OV as directed below. Belle Fajardo LPN [facility]08-22-2024 Telephone encounter Note* Telephone Encounter - Belle Fajardo LPN - 03/03/2024 8:05 AM EDT ----- Message from Joshua Baker DO sent at 03/03/2024 6:58 AM EDT ----- Bone x-rays showed only the fracture of T8. Keep CT as scheduled. Follow up with me about a week after the CT. [facility]08-16-2024 History of Present illness Narrative* [...] PATIENT PRESENTS WITH AN IMPLANTABLE OR ATTACHED WALL WASHER: No RADIOLOGY DEPARTMENT: General X-ray: Exam(s) Completed: Bone Survey PERIPHERAL IV DATA: Not applicable SIGNED BY: RT Jonas(R) February 26, 2024 11:50 AM documented in this encounterWooster Community Hospital08-16-2024 NoteHNO ID: [id number] Author: TELMA MADERA RT(R) Service: ? Author [...] PATIENT PRESENTS WITH AN IMPLANTABLE OR ATTACHED WALL WASHER: No RADIOLOGY DEPARTMENT: General X-ray: Exam(s) Completed: Bone Survey PERIPHERAL IV DATA: Not applicable SIGNED BY: RT Jonas(R) February 26, 2024 11:50 [facility]08-16-2024 NoteHNO ID: [id number] Author: JOSHUA BAKER DO Service: ? Author [...] since 2015. 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 Root for increased fatigue and was [...] taking aspirin along with Xarelto. Has h/o IL (PCI with stents), atrial fibrillation (on rivaroxaban), [...] which included preparing to see the patient, pryw-bs-vzuv patient care, completing clinical documentation, obtaining and/or reviewing separately obtained history, performing a medically appropriate examination, counseling and educating the patient/family/caregiver, ordering medications, tests, or procedures, communicating with other HCPs (not separately reported), and communicating results to the patient/family/caregiver. 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 HPI: The patient is an 83 year-old female with history of arrhythmia, status post pacemaker and radiofrequency ablation. Patient had been on Xarelto for atrial fibrillation since 2014. 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 Root for increased fatigue and was [...] taking aspirin along with Xarelto. Has h/o IL (PCI with stents), atrial fibrillation (on rivaroxaban), [...] which included preparing to see the patient, zglb-wr-ywvw patient care, completing clinical documentation, obtaining and/or reviewing separately obtained history, performing a medically appropriate examination, counseling and educating the pat ient/family/caregiver, ordering medications, tests, or procedures, communicating with other HCPs (not separately reported), and communicating results to the patient/family/caregiver. Joshua Baker DO documented in this encounterW[facility] Hospital08-09-2024 Telephone encounter Note * Telephone Encounter - Victor M Rocha MD - 02/19/2024 1:56 PM EDT OK to refill as ordered Victor M Rocha MD [facility]08-09-2024 Miscellaneous Notes* Telephone Encounter - [...] 19, 2024 11:19 AM documented in this encounterWooster [facility] Hospital08-09-2024 Telephone encounter Note * Telephone [...] Phan Peraza February 19, 2024 11:19 AM [facility] Work Phone: 1(142) 781-335208-06-2024 NoteHNO ID: [id number] Author: SEAN RIDLEY PA Service: ? Author Type: Physician Blocker And Cutter Contact Lens Type: Progress Notes Filed: 02/16/2024 12:31 Note Text: This note was created using [employer]. Subjective Antonio Gupta is a 83 year [...] her shirt. She has been putting some qyox-rrp-rpjkaxj ointment on it and bandages. Has not tried anything else for symptoms. No fevers. No other complaint. PAST MEDICAL HISTORY No date: Coronary atherosclerosis of unspecified type of vessel, nulato or graft Comment: Stent x 22010 No [...] both eyes twice daily. blood sugar diagnostic (Datran MediaUCH VERIO TEST STRIPS) test strip TEST BLOOD [...] diarrhea and vomiting. Sk (more content not included)...[facility]08-06-2024 History of Present illness Narrative* Sean Ridley PA - 02/16/2024 12:18 PM EDT Images from the original note were not included. This note was created using The [employer] F[employer]. Subjective Antonio Gupta is a 83 year [...] rice bag that you warm up in [facility] for her pain. She states this [...] her shirt. She has been putting some rmop-jcb-objrrob ointment on it and bandages. Has not tried anything else for symptoms. No fevers. No other complaint. PAST MEDICAL HISTORY No date: Coronary atherosclerosis of unspecified type of vessel, nulato or graft Comment: Stent x 2010 No [...] both eyes twice daily. blood sugar diagnostic (ImmusanT VERIO TEST STRIPS) test strip TEST BLOOD SUGAR ONCE DAILY lancets (ONE TOUCH DELWeeks Communications) 33 gauge Test blood sugar(s) 1 daily. [...] evaluation. LUIS FELIPE Akins documented in this encounterWooster Community Hospital07-22-2024 Instructions* Patient Instructions* Kandi Woody MA - 02/01/2024 1:01 PM EDT Reduce the Glimepiride (amaryl) to 2 mg daily. Cut the 4 mg pill in half. Notify office if you continued to have the low blood sugar symptoms. Follow up in 6 months or sooner if needed. documented in this encounterWooster Community Hospital07-22-2024 History of Present illness Narrative* [...] last visit. HTN & A-fib: Follows with [facility]. Has pacemaker. Denies checking her [...] Coronary atherosclerosis of unspecified type of vessel, nulato or graft Stent x 2010 Depressive disorder, [...] both eyes twice daily. blood sugar diagnostic (Datran MediaUCH VERIO TEST STRIPS) test strip TEST BLOOD [...] 01/27/2024 1.15 Monocytes % 01/27/2024 11.6 Abs [place] 01/27/2024 0.68 Eosinophils % 01/27/2024 2.7 Abs [...] 12/23/2023 1.41 Monocytes % 12/23/2023 10.5 Abs [place] 12/23/2023 0.69 Eosinophils % 12/23/2023 2.6 Abs [...] Past Histories independently gathered by the clinical family readiness support assistant and the remaining scribed note accurately describes [...] PM. Kandi Woody MA documented in this encounterWooster [facility] Hospital07-07-2024 Telephone encounter Note * Telephone Encounter - Rosalba Casey MA - 01/17/2024 8:27 AM EDT Pt was notified of the results. Pt verbalized understanding. Rosalba Casey MA [facility]07-07-2024 Miscellaneous Notes* Telephone Encounter - [...] follow-up with primary care. documented in this encounterWooster Community Hospital07-07-2024 Telephone encounter Note * Telephone Encounter - Kortney Ruiz APRN.CNP - 01/17/2024 8:12 AM EDT Patient just had normal jaspreet in her urine. No significant bacterial growth in urine culture patient can continue antibiotic get it if it is helping. If patient's symptoms are persistent patient needs to follow-up with primary care. [facility] Work Phone: 1(497) 886-281507-05-2024 History of Present illness Narrative* Daniel Bucio [...] CAPSULE Daniel Bucio MD documented in this encounterWooster [facility] Present [facility] Narrative* Brittny Rivero RN - 01/01/2024 3:30 PM EDT TCM Home Visit Referral Source of Stratification: TCM HUB Hospital Admission Status: Discharged Readmission Risk Score: n/a Patient's zip code: [address] Is zip code within program service area: [...] no issues, stable SUMMARY: Discharge Network Status: [id number] (OON) Discharge Pt discharged from [facility] on [facility] . Admitted for: Sob,Resp Failure Pacemaker check Dyspnea / hypoxemia Decompensated CHF DM / CKD / ASCVD Contact made with patient: Yes Hi my name is Brittny Rivero RN and I am calling from the [facility] on behalf of your PCP, [...] like to speak with a social work steam conditioner operator to help give you support for any [...] I will send your request to a account officer who will contact and assist you with [...] 01, 2024 4:39 PM documented [facility] Telephone encounter Note * Telephone Encounter - Shara Delgado - 01/01/2024 11:58 AM EDT Spoke with patient and scheduled as directed. Shara Bragg [facility]06-21-2024 Miscellaneous Notes* Telephone Encounter - [...] about 8 weeks * Telephone Encounter - Naoim Chase LPN - 12/29/2023 8:10 AM EDT [...] in about 8 weeks. [facility]06[facility] Telephone encounter Note * Telephone Encounter - Vesta Jett - 12/29/2023 8:39 AM EDT 1st attempt. Unable to leave message. Voicemail not set up. No My chart. Patient to schedule - -CBC/IRON STUDIES/CMP then OV with Dr. Baker in about 8 weeks [facility] Work Phone: 1(579) 402-668706-18-2024 Telephone encounter Note* Telephone Encounter - Naomi Chase LPN - 12/29/2023 8:10 AM EDT Please schedule for CBC/iron studies/CMP then OV with Dr. Baker in about 8 weeks. Left detailed message on identified voicemail concerning recent lab results. Informed PSS will be reaching out to her to get F/U scheduled. Naomi Chase LPN [facility]06-17-2024 Telephone encounter Note* Telephone Encounter - Joshua Baker DO - 12/28/2023 6:15 PM EDT Iron and hemoglobin came up with iron infusions. Please schedule for CBC/iron studies/CMP then OV with me in about 8 weeks. [facility] Work Phone: 1(286) 312-718206-13-2024 History of Present illness Narrative* Victor M [...] 7 day TCM Pt was admitted to [facility] on 12/14/23 after presenting to ER with [...] in quite some time. Below copied from [place]: MDM Narrative Medical decision making narrative: HISTORY [...] current medications 2. 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- ICD9: 414.01, ICD10: I25.10 - NITROGLYCERIN 0.4 MG SUBLINGUAL TABLET 3. 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 Pt stated understanding. [facility]-12[facility]24 Miscellaneous Notes* Telephone Encounter - [...] list. Pt stated understanding. documented in this encounterW[facility]06-[facility]-2024 Telephone encounter Note * Telephone Encounter - Melissa Doherty - 12/14/2023 2:13 PM EDT Cancelled as directed. Melissa Julian [facility]06-03-2024 Miscellaneous Notes* Telephone Encounter - Melissa Doherty - 12/14/2023 2:13 PM EDT Cancelled as directed. Melissa Julian * Telephone Encounter - Marimar Gutierrez LPN - 12/14/2023 1:49 PM EDT Admitted to ICU [facility]. Please cancel. Marimar Gutierrez LPN * Telephone Encounter - Joshua Baker DO - 12/14/2023 1:32 PM EDT Noted. Thank you. Joshua Baker DO * Telephone Encounter - Vesta Jett - 12/14/2023 9:54 AM EDT Keila with [facility] called stating they are sending patient to [facility]. Patient is scheduled today for labs and iron. She states patient may not be here for appointments. Left appointments on schedule for now. documented in this encounterW[facility]06-[facility]24 Telephone encounter Note * Telephone Encounter - Marimar Gutierrez LPN - 12/14/2023 1:49 PM EDT Admitted to ICU [facility]. Please cancel. Marimar Gutierrez LPN [facility]-03[facility] Telephone encounter Note* Telephone Encounter - Joshua Baker DO - 12/14/2023 1:32 PM EDT Noted. Thank you. Joshua Baker DO [facility] Work Phone: 1(909) 717-305906-03-2024 Telephone encounter Note* Telephone Encounter - Vesta Jett - 12/14/2023 9:54 AM EDT Keila with [facility] called stating they are sending patient to [facility]. Patient is scheduled today for labs and iron. She states patient may not be here for appointments. Left appointments on schedule for now. [facility] Work Phone: 1(774) 424-303505-31-2024 Nurse Note* Shara Jung RN - 12/11/2023 2:50 PM EDT Pt advised to f/u with combat information center officer regarding low BP. States she has a BP cuff at home but rarely uses it. Advised to start monitoring twice a day and keep a log. Contact Dr. Root's office with update. Pt stated understanding. [facility] Nurse Note* Shara Jung RN - 12/11/2023 2:50 PM EDT Pt advised to f/u with combat information center officer regarding low BP. States she has a BP cuff at home but rarely uses it. Advised to start monitoring twice a day and keep a log. Contact Dr. Root's office with update. Pt stated understanding. documented in this encounterW[facility]05-17-2024 Telephone encounter Note * Telephone Encounter - Cesar Sesay - 11/27/2023 9:42 AM EDT The patient is active with Medicare A & B along with [place] [employer]. The patient's financial responsibility should be [...] Navigator intervention is needed at this time. [facility]-17[facility] Miscellaneous Notes* Telephone Encounter - Cesar Sesay - 11/27/2023 9:42 AM EDT The patient is active with Medicare A & B along with [place] [employer]. The patient's financial responsibility should be [...] needed at this time. documented in this encounterWooster [facility]05-14-2024 Telephone encounter Note * Telephone Encounter - Pam Hollingsworth LISW - 11/24/2023 12:33 PM EDT Pt noted on [facility] 1st time treatment report. Pt has a non-oncology regimen. No social work followup indicated. THANH Edmond-S [facility]05-14-2024 Miscellaneous Notes* Telephone Encounter - Pam Hollingsworth LISW - 11/24/2023 12:33 PM EDT Pt noted on [facility] 1st time treatment report. Pt has a non-oncology regimen. No social work followup indicated. THANH Edmond-S documented in this encounterW[facility]05-[facility] History of Present illness Narrative* [...] Coronary atherosclerosis of unspecified type of vessel, nulato or graft Stent x 2010 Depressive disorder, [...] I27.21 Stable 5. 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 Stage 3b chronic kidney disease (HCC) - ICD9: 585.3, ICD10: N18.32 Monitor prn Follow up prn; call if not iproved with muscle relaxant and would consider US to evaluate right side I agree with the Chief Complaint, ROS, and Past Histories independently gathered by the clinical family readiness support assistant and the remaining scribed note accurately describes [...] PM. Kandi Woody MA documented in this encounterWo[facility]05-08-2024 Telephone encounter Note * Telephone Encounter - Shara Delgado - 11/18/2023 12:46 PM EDT Orders linked to appointments. Shara Delgado [facility]05-08[facility]2024 Miscellaneous Notes* Telephone Encounter - Shara Delgado - 11/18/2023 12:46 PM EDT Orders linked to appointments. Shara Delgado * Telephone Encounter - Joshua Baker DO - 11/18/2023 12:31 PM EDT They are in [place]. Joshua Baker DO * Telephone Encounter - Shara Delgado - 11/18/2023 10:28 AM EDT Spoke with patient and scheduled. Please file [place] Orders. Shara Delgado * Telephone Encounter - Belle Fajardo LPN - 11/18/2023 10:15 AM EDT PSS- please schedule patient for 5 doses of iron sucrose. Also, with the last dose she will need CBC/RETIC and IRON STUDIES. Belle Fajardo LPN documented in this encounterWo[facility]05-08-2024 Telephone encounter Note * Telephone Encounter - Joshua Baker DO - 11/18/2023 12:31 PM EDT They are in [place]. Joshua Baker DO [facility] Work Phone: 1(287) 357-997805-08-2024 Telephone encounter Note* Telephone Encounter - Shara Delgado - 11/18/2023 10:28 AM EDT Spoke with patient and scheduled. Please file [place] Orders. Shara Delgado [facility]05-08-2024 Telephone encounter Note* Telephone Encounter - Belle Fajardo LPN - 11/18/2023 10:15 AM EDT PSS- please schedule patient for 5 doses of iron sucrose. Also, with the last dose she will need CBC/RETIC and IRON STUDIES. Belle Fajardo LPN [facility]05-07-2024 History of Present illness Narrative* [...] since 2014. 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 Root for increased fatigue and was [...] taking aspirin along with Xarelto. Has h/o IL (PCI with stents), atrial fibrillation (on rivaroxaban), [...] which included preparing to see the patient, uaiu-ye-fjwy patient care, completing clinical documentation, obtaining and/or reviewing separately obtained history, performing a medically appropriate examination, counseling and educating the pat ient/family/caregiver, ordering medications, tests, or procedures, communicating with other HCPs (not separately reported), and communicating results to the patient/family/caregiver. Joshua Baker DO documented in this encounterWo[facility]04-19-2024 History of Present illness Narrative* [...] chest pains, dizziness, or SOB. Follows with [facility], Cardio. Has pacemaker. Taking Xarelto [...] is sleeping well at night. Lipid/CAD: Reports assisted watching her diet. Denies any exercise. Doesn't [...] Coronary atherosclerosis of unspecified type of vessel, nulato or graft Stent x 2010 Depressive disorder, [...] both eyes twice daily. blood sugar diagnostic (ONECloudtopUCH VERIO TEST STRIPS) test strip TEST BLOOD [...] 10/23/2023 1.98 Monocytes % 10/23/2023 10.5 Abs Lagrange 10/23/2023 1.01 (H) Eosinophils % 10/23/2023 2.8 [...] 13 Estimated Glomerular Shane* 10/23/2023 32 (L) [place] Free, Serum 10/23/2023 80.2 (H) Lambda Free, [...] ICD9: 273.1, ICD10: D47.2 Follow up with [facility] 6. 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 7. Iron deficiency anemia, unspecified iron deficiency anemia type - ICD9: 280.9, ICD10: D50.9 Follow up with [facility] Check labs in 3 months 8. Paroxysmal [...] ICD9: 780.79, ICD10: R53.83 Follow up with [facility] Increase Synthroid to 100 mg daily 12. Generalized weakness - ICD9: 780.79, ICD10: R53.1 Follow up with [facility] Increase Synthroid to 100 mg daily 13. SOB (shortness of breath) - ICD9: 786.05, ICD10: R06.02 Follow up with [facility] Follow up in 3 months with labs prior. I agree with the Chief Complaint, ROS, and Past Histories independently gathered by the clinical family readiness support assistant and the remaining scribed note accurately describes [...] AM. Kandi Woody MA documented in this encounterWooster [facility] Hospital02-19-2024 Miscellaneous Notes* Telephone Encounter - [...] you. Vania Walters LPN. documented in this encounterW[facility]12-11-2023 Miscellaneous Notes* Telephone Encounter - [...] please advise the patient. documented in this encounterWooster [facility] Hospital12-11-2023 Instructions* Patient Instructions* Ana Kebede APRN.DICK - 06/22/2023 11:59 AM EST Call me and let me know what antibiotic you are taking documented in this encounterWooster [facility] Hospital12-11-2023 History of Present illness Narrative* [...] Coronary atherosclerosis of unspecified type of vessel, nulato or graft Stent x 2010 Depressive disorder, [...] which included preparing to see the patient, [id number]-[id number] patient care, completing clinical documentation, obtaining and/or reviewing separately obtained history, performing a medically appropriate examination, counseling and educating the pat ient/family/caregiver, and ordering medications, tests, or procedures. documented in this encounterWo[facility] Hospital11-24-2023 Instructions* Patient Instructions* Beverley Reed [...] Discussed expected course of illness Beverley Reed APRN.HEALTH POLICY NURSE documented in this encounterWooster [facility] Hospital11-24-2023 History of Present illness Narrative* [...] Coronary atherosclerosis of unspecified type of vessel, nulato or graft Stent x 2010 Depressive disorder, [...] both eyes twice daily. blood sugar diagnostic (ImmusanT VERIO TEST STRIPS) test strip TEST BLOOD [...] Discussed expected course of illness Beverley Reed APRN.HEALTH POLICY NURSE documented in this encounterWooster [facility] Hospital10-17-2023 Instructions* Patient Instructions* Cara Herring Ma - 04/28/2023 10:54 AM EDT Bowels - To help with constipation use Miralax. Use as directed on bottle. Sleep - Can increase Buspar 15 mg to 3 times per day to see if this helps with sleep. documented in this encounterWooster [facility] Hospital10-17-2023 History of Present illness Narrative* [...] chest pains, dizziness, or SOB. Follows with [facility], Cardio. Taking HCTZ 12.5 mg [...] 1 year from May 2022. Lipid/CAD: Reports assisted watching her diet. Denies any exercise. Doesn't [...] Coronary atherosclerosis of unspecified type of vessel, nulato or graft Stent x 2010 Depressive disorder, [...] Past Histories independently gathered by the clinical family readiness support assistant and the remaining scribed note accurately describes [...] AM. Cara Herring Ma documented in this encounterWo[facility]06-24-2023 Miscellaneous Notes* Telephone Encounter - Yovana Painter APRN.CNP - 01/03/2023 12:35 PM EDT [...] you. Jessica Figueroa RN documented in this encounterWooster [facility]06-01-2023 History of Present illness Narrative* Victor M Rocha MD - 12/11/2022 2:20 PM EDT Images from the original note were not included. Chief Complaint Patient presents with: Hospital F/U: HPI Antonio Gupta is a 82 year old female who presents here today for ER Follow Up.. Pt presented to [facility] ER on 12/04/22 with c/o abdominal pain. [...] wheezing intermittently. No SOB. Below copied from [facility]: Chief Complaint: Abd Pain Narrative Narrative: Patient is an 82-year-old female with a past medical history of CAD, IL, on Eliquis for atrial fibrillation, hyperlipidemia who presents to the emergency department for lower abdominal pain that began at approximately 11 AM. Patient states she was baking bread when she developed lower abdominal pain like she had to go to the bathroom, sweatiness. She did get concerned because this is how she feltduring her first IL in 2009. Patient also states over the [...] Patient's currently has no history of ACS, IL is a initial troponin was negative, repeat [...] Coronary atherosclerosis of unspecified type of vessel, nulato or graft Stent x 2010 Depressive disorder, [...] current medications. 9. 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 Follow up as needed. Update Office if symptoms worsen. Follow up prn I agree with the Chief Complaint, ROS, and Past Histories independently gathered by the clinical family readiness support assistant and the remaining scribed note accurately describes [...] PM. Cara Herring Ma documented in this encounterW[facility]06-01-2023 History of Past illness Narrative* [...] of this encounter (statuses as of 10/30/2023) [facility]04[facility]14[facility] History of Present illness Narrative* [...] that lasts very briefly. Pt follows with [facility]. On current regimen of Norvasc 10 mg once daily, Losartan 100 mg once daily, HCTZ 12.5 mg daily and Toprol XL 25 mg daily. CAD/Lipid: Follows with [facility], has pacemaker. On current regimen [...] Coronary atherosclerosis of unspecified type of vessel, nulato or graft Stent x 2010 Depressive disorder, [...] both eyes twice daily. blood sugar diagnostic (ImmusanT VERIO TEST STRIPS) test strip TEST BLOOD SUGAR ONCE DAILY lancets (ONE TOUCH [employer]) 33 gauge Test blood sugar(s) 1 daily. [...] 09/03/2022 1.66 Monocytes % 09/03/2022 9.0 Abs Lagrange 09/03/2022 0.75 Eosinophils % 09/03/2022 3.1 Abs [...] PANEL BASIC 3. 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- ICD9: 414.01, ICD10: [...] Past Histories independently gathered by the clinical family readiness support assistant and the remaining scribed note accurately describes [...] AM. Kandi Woody Ma documented in this encounterWooster [facility] Hospital02-28-2023 History of Present illness Narrative* [...] both eyes twice daily. blood sugar diagnostic (INNFOCUSTOUCH VERIO TEST STRIPS) test strip TEST BLOOD [...] that has been stable around 1 g. [place] lambda ratio has been consistently normal. Not expected to progress into multiple myeloma or related neoplasm. Nevertheless recommend continued hematologic/oncologic yearly surveillance. The patient was able to ask questions and these were answered in detail. Ida Magaña MD cc: Viviana Rocha MD documented in this encounterWooster [facility] Hospital02-22-2023 Miscellaneous Notes* Telephone Encounter - [...] draw and call patient. documented in this encounterWooster [facility] Hospital11-21-2022 Miscellaneous Notes* Telephone Encounter - [...] notify patient. Dorie Coffey documented in this encounterWo[facility] Hospital08-22-2022 Miscellaneous Notes* Telephone Encounter - [...] notify patient. Dorie Coffey documented in this encounterWooster [facility] Hospital07-05-2022 Instructions* Patient Instructions* Kandi Woody [...] the new dosage arrives. documented in this encounterWooster Community Hospital07-05-2022 History of Present illness Narrative* [...] [facility]. [facility] and was then sent to Ortho Dr. Cote back in 2017. Had xrays done at that time. She is not interested in having surgery on the knee. Past medical history, appointments, medications, allergies reviewed. Previous Medical History PAST MEDICAL HISTORY Diagnosis Date Coronary atherosclerosis of unspecified type of vessel, nulato or graft Stent x 2010 Depressive disorder, [...] thyroid Patient Allergies ALLERGIES Allergen Reactions Poison Fnay Sulfa (Sulfonamide * Hives Current Medications Current [...] by mouth once daily. lancets (ONE TOUCH [employer]) 33 gauge Test blood sugar(s) 1 daily. [...] weight loss. 3. 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- ICD9: 414.01, ICD10: [...] Past Histories independently gathered by the clinical family readiness support assistant and the remaining scribed note accurately describes [...] AM. Kandi Woody Ma documented in this encounterWooster [facility] Hospital04-01-2022 History of Present illness Narrative* [...] for eye exams. She was seen at [facility] [place] last year. She was on glimepiride [...] Coronary atherosclerosis of unspecified type of vessel, nulato or graft Stent x 2010 Depressive disorder, [...] EMPTY STOMACH FOR THYROID blood sugar diagnostic (Datran MediaUCH VERIO TEST STRIPS) test strip TEST BLOOD SUGAR ONCE DAILY omeprazole (PRILOSEC) 40 mg capsule Take 1 capsule by mouth once daily. amitriptyline (ELAVIL) 25 mg tablet Take 1 tablet by mouth daily at bedtime. lancets (ONE TOUCH [employer]) 33 gauge Test blood sugar(s) 1 daily. [...] 09/02/2021 Reviewed by Kristy Quiles MD, PhD. ([id number]) WBC 09/02/2021 6.68 RBC 09/02/2021 4.33 Hemoglobin 09/02/2021 13.3 Hematocrit 09/02/2021 39.5 MCV 09/02/2021 91.2 MCH 09/02/2021 30.7 MCHC 09/02/2021 33.7 RDW-CV 09/02/2021 12.9 Platelet Count 09/02/2021 283 MPV 09/02/2021 10.3 Neut% 09/02/2021 65.9 Abs Neut (ANC) 09/02/2021 4.38 Lymph% 09/02/2021 21.6 Abs Lymph 09/02/2021 1.44 Lagrange% 09/02/2021 9.9 Abs Lagrange 09/02/2021 0.66 Eosin% 09/02/2021 2.2 Abs Eosin [...] Past Histories independently gathered by the clinical family readiness support assistant and the remaining scribed note accurately describes [...] AM. Kandi Woody Ma documented in this encounterWooster [facility]02-07-2017 History of Past illness Narrative* [...] of this encounter (statuses as of 10/11/2021) [facility] Narrative* [...] of this encounter (statuses as of 01/14/2022) [facility] Narrative* [...] of this encounter (statuses as of 03/03/2022) [facility] Narrative* [...] of this encounter (statuses as of 06/02/2022) [facility] Narrative* [...] of this encounter (statuses as of 09/03/2022) [facility] Narrative* [...] of this encounter (statuses as of 09/09/2022) [facility] Narrative* [...] of this encounter (statuses as of 10/25/2022) [facility] Narrative* [...] of this encounter (statuses as of 12/11/2022) [facility] Narrative* Problem Noted Date Resolved Date 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 care facility 10/04/2008 08/12/2010 Overview: Pt declined colon testing as of 09-18 Mammo negative in 4-09 Contact dermatitis and other eczema, due to unspecified cause 10/17/2005 08/12/2010 documented as of this encounter (statuses as of 01/05/2023) [facility] Narrative* [...] of this encounter (statuses as of 04/28/2023) [facility] Narrative* [...] of this encounter (statuses as of 06/05/2023) [facility] Narrative* [...] of this encounter (statuses as of 06/23/2023) [facility] Narrative* [...] of this encounter (statuses as of 06/23/2023) [facility] Narrative* Problem Noted Date Diagnosed Date Resolved Date 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2016 Unspecified gastritis and ga stroduodenitis without mention of hemorrhage 10/04/2008 08/13/2011 Overview: No alcohol or tobacco use as of 09-18 Using daily Zantac as of 09-18 H pylori 5 (positive if greater than 0.9) in 12-19: rec Prevpa Routine general medical exam ination at a [facility] facility 10/04/2008 08/12/2010 Overview: Pt declined colon testing as of 09-18 Mammo negative in 4-09 Contact dermatitis and other eczema, due to unspecified cause 10/17/2005 08/12/2010 documented as of this encounter (statuses as of 06/25/2023) [facility] Narrative* Problem Noted Date Diagnosed Date Resolved Date 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2016 Unspecified gastritis and ga stroduodenitis without mention of hemorrhage 10/04/2008 08/13/2011 Overview: No alcohol or tobacco use as of 09-18 Using daily Zantac as of 09-18 H pylori 5 (positive if greater than 0.9) in 12-19: rec Prevpac Routine general medical exam ination at a [facility] care facility 10/04/2008 08/12/2010 Overview: Pt declined colon testing as of 09-18 Mammo negative in 10-19 Contact dermatitis and other eczema, due to unspecified cause 10/17/2005 08/12/2010 documented as of this encounter (statuses as of 08/31/2023) [facility]10-15-2015 Evaluation note* Diagnosis Onset Date Resolution Status Longstanding persistent atrial fibrillation chronic Sick sinus syndrome chronic Presence of cardiac pacemaker April 26, 2015 resolved Essential (primary) hypertension chronic Hyperlipidemia chronic Longstanding persistent atrial fibrillation chronic History of coronary artery stent placement September, resolved Presence of cardiac pacemaker April 26, [address] [facility] Work Phone: [phone]) 540-611510-15-2015 Evaluation note* Diagnosis Onset Date Resolution Status Longstanding persistent atrial fibrillation chronic Sick sinus syndrome chronic Presence of cardiac pacemaker April 26, [address] [facility] Work Phone: 1(428) 920-214603-01-2011 Evaluation note* Diagnosis Onset Date Resolution Status Essential (primary) hypertension chronic Hyperlipidemia chronic Longstanding persistent atrial fibrillation chronic History of coronary artery stent placement September, resolved Presence of cardiac pacemaker April 26, [address] 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 Hyperlipidemia, unspecified hyperlipidemia type 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 Essential hypertension, benign Paroxysmal atrial fibrillation (HCC) Atrial fibrillation Hypothyroidism, unspecified type Stage 3a chronic kidney disease (HCC) Depression, unspecified depression type Benign essential tremor Essential and other specified forms of tremor Arthritis of knee Unspecified arthropathy, lower leg Need for COVID-19 vaccine [facility] Diagnosis Depression, unspecified depression type [facility] Diagnosis MGUS (monoclonal gammopathy of unknown significance)- Primary Monoclonal paraproteinemia Stage 3a chronic kidney disease (HCC) Osteoporosis with current pathological fracture with routine healing, unspecified osteoporosis type, subsequent encounter [facility] Diagnosis Type 2 diabetes mellitus with other diabetic kidney complication, 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 Hyperlipidemia, unspecified hyperlipidemia type 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 Essential hypertension, benign Paroxysmal atrial fibrillation (HCC) Atrial fibrillation Iron deficiency anemia, unspecified iron deficiency anemia type Hypothyroidism, unspecified type Benign neoplasm of meninges, unspecified (HCC) MGUS (monoclonal gammopathy of unknown significance) Monoclonal paraproteinemia [facility] Diagnosis Hospital discharge follow-up- Primary Other follow-up examination Colitis, infectious Infectious colitis, enteritis, and gastroenteritis UTI (urinary tract infection), bacterial Urinary tract infection, site not specified Benign neoplasm of meninges, unspecified ([facility]) Secondary pulmonary arterial hypertension (HCC) Stage 3a chronic kidney disease (HCC) Paroxysmal atrial fibrillation (HCC) Atrial fibrillation 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[facility]) 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 ([facility]) [facility] Diagnosis Essential hypertension, benign- Primary Hyperlipidemia, unspecified hyperlipidemia type Type 2 diabetes mellitus with other diabetic kidney complication, 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 ([facility]) Hypothyroidism, unspecified type Stage 3a chronic kidney disease (HCC) Gastroesophageal reflux disease, unspecified whether esophagitis present Depression, unspecified depression type Paroxysmal atrial fibrillation (HCC) Atrial fibrillation Iron deficiency anemia, unspecified iron deficiency anemia type MGUS (monoclonal gammopathy of unknown significance) Monoclonal paraproteinemia Constipation, unspecified constipation type Need for influenza vaccination Need for prophylactic vaccination and inoculation against influenza [facility] Diagnosis Urinary frequency- Primary Glucosuria Glycosuria [facility]* Diagnosis Urinary tract infection without hematuria, site unspecified- Primary Stage 3b chronic kidney disease (HCC) [facility]* Diagnosis Depression, unspecified depression type [facility]* Diagnosis Type 2 diabetes mellitus with other diabetic kidney complication, 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 ([facility])- Primary Hypothyroidism, unspecified type Gastroesophageal reflux disease, [...] arterial hypertension (HCC) 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) [facility]* Diagnosis MGUS (monoclonal gammopathy of unknown significance)- Primary Monoclonal paraproteinemia Iron deficiency anemia, unspecified iron deficiency anemia type [facility]* Diagnosis Acute right-sided low back pain without sciatica- Primary Iron deficiency anemia, unspecified iron deficiency anemia type Side pain Abdominal pain, unspecified site Secondary pulmonary arterial hypertension (HCC) 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) Stage 3b chronic kidney disease (HCC) [facility]* Diagnosis Iron deficiency anemia, unspecified iron deficiency anemia type- Primary [facility] Diagnosis Iron deficiency anemia, unspecified iron deficiency anemia type- Primary [facility]* Diagnosis Iron deficiency anemia, unspecified iron deficiency anemia type- Primary [facility]* Diagnosis Iron deficiency anemia, unspecified iron deficiency anemia type- Primary [facility] Diagnosis Iron deficiency anemia, unspecified iron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 investigate or prosecute any alcohol or drug abuse patient.[facility] HospitalIn the event this information is protected by the Federal Confidentiality of Alcohol and Drug Abuse Patient Records regulations: The Federal rules restrict any use of the information to criminally investigate or prosecute any alcohol or drug abuse patient.[facility] HospitalIn the event this information is protected by the Federal Confidentiality of Alcohol and Drug Abuse Patient Records regulations: The Federal rules restrict any use of the information to criminally investigate or prosecute any alcohol or drug abuse patient.[facility] HospitalIn the event this information is protected by the Federal Confidentiality of Alcohol and Drug Abuse Patient Records regulations: The Federal rules restrict any use of the information to criminally investigate or prosecute any alcohol or drug abuse patient.[facility] HospitalIn the event this information is protected by the Federal Confidentiality of Alcohol and Drug Abuse Patient Records regulations: The Federal rules restrict any use of the information to criminally investigate or prosecute any alcohol or drug abuse patient.[facility] HospitalIn the event this information is protected by the Federal Confidentiality of Alcohol and Drug Abuse Patient Records regulations: The Federal rules restrict any use of the information to criminally investigate or prosecute any alcohol or drug abuse patient.[facility] HospitalIn the event this information is protected by the Federal Confidentiality of Alcohol and Drug Abuse Patient Records regulations: The Federal rules restrict any use of the information to criminally investigate or prosecute any alcohol or drug abuse patient.[facility] HospitalIn the event this information is protected by the Federal Confidentiality of Alcohol and Drug Abuse Patient Records regulations: The Federal rules restrict any use of the information to criminally investigate or prosecute any alcohol or drug abuse patient.[facility] HospitalIn the event this information is protected by the Federal Confidentiality of Alcohol and Drug Abuse Patient Records regulations: The Federal rules restrict any use of the information to criminally investigate or prosecute any alcohol or drug abuse patient.[facility] HospitalIn the event this information is protected by the Federal Confidentiality of Alcohol and Drug Abuse Patient Records regulations: The Federal rules restrict any use of the information to criminally investigate or prosecute any alcohol or drug abuse patient.[facility] HospitalIn the event this information is protected by the Federal Confidentiality of Alcohol and Drug Abuse Patient Records regulations: The Federal rules restrict any use of the information to criminally investigate or prosecute any alcohol or drug abuse patient.[facility] HospitalIn the event this information is protected by the Federal Confidentiality of Alcohol and Drug Abuse Patient Records regulations: The Federal rules restrict any use of the information to criminally investigate or prosecute any alcohol or drug abuse patient.[facility] HospitalIn the event this information is protected by the Federal Confidentiality of Alcohol and Drug Abuse Patient Records regulations: The Federal rules restrict any use of the information to criminally investigate or prosecute any alcohol or drug abuse patient.[facility] HospitalIn the event this information is protected by the Federal Confidentiality of Alcohol and Drug Abuse Patient Records regulations: The Federal rules restrict any use of the information to criminally investigate or prosecute any alcohol or drug abuse patient.[facility] HospitalIn the event this information is protected by the Federal Confidentiality of Alcohol and Drug Abuse Patient Records regulations: The Federal rules restrict any use of the information to criminally investigate or prosecute any alcohol or drug abuse patient.[facility] Reason for Visit (unrecogniz ed [...] Treatment Specialty Diagnoses / Procedures [facility] Referred To Contact Diagnoses Iron deficiency anemia, unspecified iron deficiency anemia type Joshua Baker, DO [address] [place] [address] [facility] [address] [place] [address] Referral ID Status Reason Start Date Expiration Date V isits Requested Visits Authorized [id number] Authorized 11/18/2023 02/16/2024 99 99 Reason Comments Benefits Investigation Specialty Diagnoses / Procedures Ref[facility] Referred To Contact Diagnoses Iron deficiency anemia, unspecified iron deficiency anemia type Joshua Baker, DO [address] [place] [address] [facility] [address] [place] [address] Reason Comments Refill Request Reason Comments Transition [...] CALCIUM Joshua Baker DO [address] [place] [address] [place] [address] Referral ID Status Reason Start Date Expiration Date V isits Requested Visits Authorized [id number] Closed Auto-Generate d Referral 02/26/2024 03/27/2025 1 1 Reason Comments Breathing Problem Reason Comments verbal orders Reason Comments Radiology MRI Reason Comments 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 Reason Comments Follow Up Hosp follow up for C HF Reason Comments Home Health: Nursing Plan of Care Order Question Reason Onset Date Comments Refill Request 04/15/2024 Reason Comments Forms [facility] Reason Comments Patient [...] Care Teams (unrecognized sec tion and content) Installation Service Representative Relationship Specialty Start Date End Date Victor M Rocha MD [address] [place], [place] [id number] PCP - General Family Practice 09/17/10 Victor M Rocha MD [address] [place], [place] [id number] Family Practice 09/17/10 Installation Service Representative Relationship Specialty Start Date End Date Victor M Rocha MD [address] [place], [place] [id number] PCP - General Family Practice 09/17/10 Victor M Rocha MD [address] [place], [place] [phone] Family Practice 09/17/10 Installation Service Representative Relationship Specialty Start Date End Date Victor M Rocha MD [address] [place] [address] PCP - General Family Practice 09/17/10 Victor M Rocha MD [address] [place] [address] Family Practice 09/17/10 Installation Service Representative Relationship Specialty Start Date End Date Victor M Rocha MD [address] [place] [address] PCP - General Family Medicine 09/17/10 Victor M Rocha MD [address] [place] [address] Family Medicine 09/17/10 Team Status: Active Member Role Status Dates Dr. Victor M Rocha MD Family Provider Active Dr. Victor M Rocah MD Primary Care Provider Active Team Status: Inactive Member Role Status Dates Dr. Victor M Rocha MD Primary Care Provider, Referr ing Provider Active Marni Waldron Active Dr. Vinny Root MD Attending Provider Active Team Status: Inactive Member Role Status Dates Dr. Victor M Rocha MD Primary Care Provider Active Dr. Prema Degroot MD Emergency Provider Active Installation Service Representative Relationship Specialty Start Date End Date Victor M Rocha MD [address] [place] [address] PCP - General Family Medicine 09/17/10 Victor M Rocha MD [address] [place] [address] Family Medicine 09/17/10 Installation Service Representative Relationship Specialty Start Date End Date Victor M Rocha MD [address] [place] [address] PCP - General Family Medicine 09/17/10 Victor M Rocha MD [address] [place] [address] Family Medicine 09/17/10 Installation Service Representative Relationship Specialty Start Date End Date Victor M Rocha MD [address] [place] [address] PCP - General Family Medicine 09/17/10 Victor M Rocha MD [address] [place] [address] Family Medicine 09/17/10 Installation Service Representative Relationship Specialty Start Date End Date Victor M Rocha MD [address] [place] [address] PCP - General Family Medicine 09/17/10 Victor M Rocha MD [address] [place] [address] Family Medicine 09/17/10 Installation Service Representative Relationship Specialty Start Date End Date Victor M Rocha MD [address] [place] [address] PCP - General Family Medicine 09/17/10 Victor M Rocha MD [address] [place] [address] Family Medicine 09/17/10 Team Status: Inactive Member [...] Member Role Status Dates Dr. Victor M Rcoha MD Primary Care Provider Active Dr. Vinny Root MD Attending Provider, Referring Pro vider Active Team Status: Active Member Role Status Dates Dr. Victor M Rocha MD Primary Care Provider Active Dr. Vinny Root MD Attending Provider Active Installation Service Representative Relationship Specialty Start Date End Date Victor M Rocha MD [address] [place] [address] PCP - General Family Medicine 09/17/10 Victor M Rocha MD [address] [place] [address] Family Medicine 09/17/10 Installation Service Representative Relationship Specialty Start Date End Date Victor M Rocha MD [address] [place] [address] PCP - General Family Medicine 09/17/10 Victor M Rocha MD [address] [place] [address] Family Medicine 09/17/10 Team Status: Inactive Member Role Status Dates Dr. Victor M Rocha MD Primary Care Provider Active Jignesh Thomas MD Emergency Provider Active Installation Service Representative Relationship Specialty Start Date End Date Victor M Rocha MD [address] [place] [address] PCP - General Family Medicine 09/17/10 Victor M Rocha MD [address] [place] [address] Family Medicine 09/17/10 Installation Service Representative Relationship Specialty Start Date End Date Victor M Rocha MD [address] [place] [address] PCP - General Family Medicine 09/17/10 Victor M Rocha MD [address] [place] [address] Family Medicine 09/17/10 Installation Service Representative Relationship Specialty Start Date End Date Victor M Rocha MD [address] [facility] [place] [address] PCP - General Family Medicine 09/17/10 Victor M Rocha MD [address] [facility] [place] [address] Family Medicine 09/17/10 Installation Service Representative Relationship Specialty Start Date End Date Victor M Rocha MD [address] [facility] [place] [address] PCP - General Family Medicine 09/17/10 Victor M Rocha MD [address] [facility] [place] [address] Family Medicine 09/17/10 Installation Service Representative Relationship Specialty Start Date End Date Victor M Rocha MD [address] [facility] [place] [address] PCP - General Family Medicine 09/17/10 Victor M Rocha MD [address] [facility] [place] [address] Family Medicine 09/17/10 Installation Service Representative Relationship Specialty Start Date End Date Victor M Rocha MD [address] [facility] [place] [address] PCP - General Family Medicine 09/17/10 Victor M Rocha MD [address] [facility] [place] [address] Family Medicine 09/17/10 Installation Service Representative Relationship Specialty Start Date End Date Victor M Rocha MD [address] [place] [address] PCP - General Family Medicine 09/17/10 Victor M Rocha MD [address] [place] [address] Family Medicine 09/17/10 Installation Service Representative Relationship Specialty Start Date End Date Victor M Rocha MD [address] [place] [address] PCP - General Family Medicine 09/17/10 Victor M Rocha MD [address] [place] [address] Family Medicine 09/17/10 Installation Service Representative Relationship Specialty Start Date End Date Victor M Rocha MD [address] [place] [address] PCP - General Family Medicine 09/17/10 Victor M Rocha MD [address] [place] [address] Family Medicine 09/17/10 Installation Service Representative Relationship Specialty Start Date End Date Victor M Rocha MD [address] [place] [address] PCP - General Family Medicine 09/17/10 Victor M Rocha MD [address] [place] [address] Family Medicine 09/17/10 Installation Service Representative Relationship Specialty Start Date End Date Victor M Rocha MD [address] [place] [address] PCP - General Family Medicine 09/17/10 Victor M Rocha MD [address] [place] [address] Family Medicine 09/17/10 Installation Service Representative Relationship Specialty Start Date End Date Victor M Rocha MD [address] [place] [address] PCP - General Family Medicine 09/17/10 Victor M Rocha MD [address] [place] [address] Family Medicine 09/17/10 Installation Service Representative Relationship Specialty Start Date End Date Victor M Rocha MD [address] [place] [address] PCP - General Family Medicine 09/17/10 Victor M Rocha MD [address] [place] [address] Family Medicine 09/17/10 Installation Service Representative Relationship Specialty Start Date End Date Victor M Rocha MD [address] [place] [address] PCP - General Family Medicine 09/17/10 Victor M Rocha MD [address] [place] [address] Family Medicine 09/17/10 Installation Service Representative Relationship Specialty Start Date End Date Victor M Rocha MD [address] [place] [address] PCP - General Family Medicine 09/17/10 Victor M Rocha MD [address] [place] [address] Family Medicine 09/17/10 Brittny Rivero, RN [address] [place] [address] Primary Care Roto Mixer Operator 12/18/23 Installation Service Representative Relationship Specialty Start Date End Date Victor M Rocha MD [address] [place] [address] PCP - General Family Medicine 09/17/10 Victor M Rocha MD [address] [place] [address] Family Medicine 09/17/10 Brittny Rivero, RN [address] [place] [address] Primary Care Roto Mixer Operator 12/18/23 Installation Service Representative Relationship Specialty Start Date End Date Victor M Rocha MD [address] [place] [address] PCP - General Family Medicine 09/17/10 Victor M Rocha MD [address] [place] [address] Family Medicine 09/17/10 Brittny Rivero, RN [address] [place] [address] Primary Care Roto Mixer Operator 12/18/23 Installation Service Representative Relationship Specialty Start Date End Date Victor M Rocha MD [address] [place] [address] PCP - General Family Medicine 09/17/10 Victor M Rocha MD [address] [place] [address] Family Medicine 09/17/10 Brittny Rivero, RN [address] [place], [place] [address] Primary Care Roto Mixer Operator 12/18/23 Installation Service Representative Relationship Specialty Start Date End Date Victor M Rocha MD [address] [place] [address] PCP - General Family Medicine 09/17/10 Victor M Rocha MD [address] [place] [address] Family Medicine 09/17/10 Brittny Rivero, RN [address] [place] [address] Primary Care Roto Mixer Operator 12/18/23 Installation Service Representative Relationship Specialty Start Date End Date Victor M Rocha MD [address] [place] [address] PCP - General Family Medicine 09/17/10 Victor M Rocha MD [address] [place] [address] Family Medicine 09/17/10 Brittny Rivero, NIYA [address] [place] [address] Primary Care Roto Mixer Operator 12/18/23 Installation Service Representative Relationship Specialty Start Date End Date Victor M Rocha MD [address] [place] [address] PCP - General Family Medicine 09/17/10 Victor M Rocha MD [address] [place] [address] Family Medicine 09/17/10 Installation Service Representative Relationship Specialty Start Date End Date Victro M Rocha MD [address] [place] [address] PCP - General Family Medicine 09/17/10 Victor M Rocha MD [address] [place] [address] Family Medicine 09/17/10 Installation Service Representative Relationship Specialty Start Date End Date Victor M Rocha MD [address] [place] [address] PCP - General Family Medicine 09/17/10 Victor M Rocha MD [address] [place] [address] Family Medicine 09/17/10 Installation Service Representative Relationship Specialty Start Date End Date Victor M Rocha MD [address] [place] [address] PCP - General Family Medicine 09/17/10 Victor M Rocha MD [address] [place] [address] Family Medicine 09/17/10 Installation Service Representative Relationship Specialty Start Date End Date Victor M Rocha MD [address] [place] [address] PCP - General Family Medicine 09/17/10 Victor M Rocha MD [address] [place] [address] Family Medicine 09/17/10 Installation Service Representative Relationship Specialty Start Date End Date Victor M Rocha MD [address] [place] [address] PCP - General Family Medicine 09/17/10 Victor M Rocha MD [address] [place] [address] Family Medicine 09/17/10 Ivelisse Luis, NIYA [address] [place] [address] Primary Care Roto Mixer Operator 03/30/24 Installation Service Representative Relationship Specialty Start Date End Date Victor M Rocha MD [address] [place] [address] PCP - General Family Medicine 09/17/10 Victor M Rocha MD [address] [place] [address] Family Medicine 09/17/10 Ivelisse Luis, NIYA [address] [place] [address] Primary Care Roto Mixer Operator 03/30/24 Installation Service Representative Relationship Specialty Start Date End Date Victor M Rocha MD [address] [place] [address] PCP - General Family Medicine 09/17/10 Victor M Rocha MD [address] [place] [address] Family Medicine 09/17/10 Ivelisse Luis, NIYA [address] [place] [address] Primary Care Roto Mixer Operator 03/30/24 Installation Service Representative Relationship Specialty Start Date End Date Victor M Rocha MD [address] [place] [address] PCP - General Family Medicine 09/17/10 Victor M Rocha MD [address] [place] [address] Family Medicine 09/17/10 Ivelisse Luis, NIYA [address] [place] [address] Primary Care Roto Mixer Operator 03/30/24 Installation Service Representative Relationship Specialty Start Date End Date Victor M Rocha MD [address] [place] [address] PCP - General Family Medicine 09/17/10 Vitcor M Rocha MD [address] [place] [address] Family Medicine 09/17/10 Ivelisse Luis, NIYA [address] [place] [address] Primary Care Roto Mixer Operator 03/30/24 Installation Service Representative Relationship Specialty Start Date End Date Victor M Rocha MD [address] [place] [address] PCP - General Family Medicine 09/17/10 Victor M Rocha MD [address] [place] [address] Family Medicine 09/17/10 Ivelisse Luis, NIYA [address] [place] [address] Primary Care Roto Mixer Operator 03/30/24 Installation Service Representative Relationship Specialty Start Date End Date Victor M Rocha MD [address] [place] [address] PCP - General Family Medicine 09/17/10 Victor M Rocha MD [address] [place] [address] Family Medicine 09/17/10 Installation Service Representative Relationship Specialty Start Date End Date Victor M Rocha MD [address] [place] [address] PCP - General Family Medicine 09/17/10 Victor M Rocha MD [address] [place] [address] Family Medicine 09/17/10 Yovana Painter APRN.HEALTH POLICY NURSE [address] [place] [address] Student Ministries Director Family Medicine 06/19/24 Carlos House APRN.HEALTH POLICY NURSE [address] [place] [address] Student Ministries Director Family Medicine 06/28/24 Installation Service Representative Relationship Specialty Start Date End Date Victor M Rocha MD [address] [place] [address] PCP - General Family Medicine 09/17/10 Victor M Rocha MD [address] [place] [address] Family Medicine 09/17/10 Yovana Painter TOLL TEST WORKER.HEALTH POLICY NURSE [address] [place] [address] Student Ministries Director Family Medicine 06/19/24 Carlos House APRN.HEALTH POLICY NURSE [address] [place] [address] Student Ministries Director Family Medicine 06/28/24 Prema Sampson, real estate developerBrake Operator Sheet Metal 09/05/24 Installation Service Representative Relationship Specialty Start Date End Date Victor M Rocha MD [address] [facility] [place] [address] PCP - General Family Medicine 09/17/10 Victor M Rocha MD [address] [facility] [place] [address] Family Medicine 09/17/10 Yovana Painter TOLL TEST WORKER.HEALTH POLICY NURSE [address] [facility] [place] [address] Student Ministries Director Family Medicine 06/19/24 Carlos House TOLL TEST WORKER.HEALTH POLICY NURSE [address] [facility] [place] [address] Student Ministries Director Family Medicine 06/28/24 Prema Sampson RN Brake Operator Sheet Metal 09/05/24 Installation Service Representative Relationship Specialty Start Date End Date Victor M Rocha MD [address] [facility] [place] [address] PCP - General Family Medicine 09/17/10 Victor M Rocha MD [address] [facility] [place] [address] Family Medicine 09/17/10 Yovana Painter, TOLL TEST WORKER.HEALTH POLICY NURSE [address] [facility] [place] [address] Student Ministries Director Family Medicine 06/19/24 Carlos House TOLL TEST WORKER.HEALTH POLICY NURSE [address] [facility] [place] [address] Student Ministries Director Family Medicine 06/28/24 Prema Sampson RN Brake Operator Sheet Metal 09/05/24 Installation Service Representative Relationship Specialty Start Date End Date Victor M Rocha MD [address] [place] [address] PCP - General Family Medicine 09/17/10 Victor M Rocha MD [address] [place] [address] Family Medicine 09/17/10 Yovana Painter APRN.HEALTH POLICY NURSE [address] [place] [address] Student Ministries Director Family Medicine 06/19/24 Carlos House APRN.HEALTH POLICY NURSE [address] [place] [address] Student Ministries Director Family Medicine 06/28/24 Prema Sampson, real estate developerBrake Operator Sheet Metal 09/05/24 Installation Service Representative Relationship Specialty Start Date End Date Victor M Rocha MD [address] [place] [address] PCP - General Family Medicine 09/17/10 Victor M Rocha MD [address] [place] [address] Family Medicine 09/17/10 Carlos House APRN.HEALTH POLICY NURSE [address] [place] [address] Student Ministries Director Family Medicine 06/28/24 Prema Sampson, real estate developerBrake Operator Sheet Metal 09/05/24 Installation Service Representative Relationship Specialty Start Date End Date Victor M Rocha MD [address] [place] [address] PCP - General Family Medicine 09/17/10 Victor M Rocha MD [address] [place] [address] Family Medicine 09/17/10 Carlos House APRN.HEALTH POLICY NURSE [address] [place] [address] Student Ministries Director Family Medicine 06/28/24 Prema Sampson, real estate developerBrake Operator Sheet Metal 09/05/24 Installation Service Representative Relationship Specialty Start Date End Date Victor M Rocha MD [address] [place] [address] PCP - General Family Medicine 09/17/10 Victor M Rocha MD [address] [place] [address] Family Medicine 09/17/10 Carlos House APRN.HEALTH POLICY NURSE [address] [place] [address] Student Ministries Director Family [facility] 06/28/24 Prema Sampson, real estate developerBrake Operator Sheet Metal 09/05/24 Team Status: Active Member Role/Relationship Status [...] January 09, 2025 End: January 09, 2025 Installation Service Representative Relationship Specialty Start Date End Date Victor M Rocha MD [address] [place] [address] PCP - General Family Medicine 09/17/10 Victor M Rocha MD [address] [place] [address] Family Medicine 09/17/10 Carlos House APRN.HEALTH POLICY NURSE [address] [place] [address] Student Ministries Director Family Medicine 06/28/24 Prema Sampson, real estate developerBrake Operator Sheet Metal 09/05/2402/02 Installation Service Representative Relationship Specialty Start Date End Date Victor M Rocha MD [address] [place] [address] PCP - General Family Medicine 09/17/10 Victor M Rocha MD [address] [place] [address] Family Medicine 09/17/10 Carlos House APRN.HEALTH POLICY NURSE [address] [place] [address] Student Ministries Director Family Medicine 06/28/24 Installation Service Representative Relationship Specialty Start Date End Date Victor M Rocha MD [address] [place] [address] PCP - General Family Medicine 09/17/10 Victor M Rocha MD [address] [place], [place] [address] [facility] 09/17/10 Carlos House APRN.HEALTH POLICY NURSE [address] [place], [place] [address] [facility] 06/28/24 Installation Service Representative Relationship Specialty Start Date End Date Victor M Rocha MD [address] [place], [place] [address] PCP - General Family Medicine 09/17/10 Victor M Rocha MD [address] [place], [place] [address] [facility] 09/17/10 Carlos House APRN.HEALTH POLICY NURSE [address] [place], [place] [address] [facility] 06/28/24 Goals (unrecognized section and content) [...] BE BASED ON THE PRIMARY CLINICAL RECORDS. [facility] [employer] [facility]. provides no warranty or guarantee of the accuracy or completeness of information in this document.
[2025-02-08 21:54] LABS: Magnesium 2.2 mg/dL (1.5-2.2)
[2025-02-08 22:46] LABS: Troponin T High Sens 4 HR 27 ng/L (<=14)
[2025-02-08] MEDS: Magnesium Chloride 64 MG Delay Rel.Tablet 128 MG PO (23:03)
[2025-02-09] VITALS (7 sets, daily range): BP systolic 122–132; BP diastolic 50–58; PULSE 80; RESP 14–20; TEMP 36.2–36.6; O2SAT 88–95; BMI 28.8; BMI 28.7
[2025-02-09 07:16] LABS: Hematocrit 28.7 % (37-47); Hemoglobin 8.6 g/dL (12.0-15.0); Immature Granulocytes Count 0.030 X10^3/uL (0.0-0.0); Mean Corp Hgb Conc 30.0 g/dL (32-36); Mean Corpuscular Volume 77.6 fL (81-99); Mean Platelet Vol. 9.5 fl (6.2-12.0); NRBC Flagged by Analyzer 0.3 % (0-5); Platelet Count 322 K/mm3 (150-450); RBC Distribution Width CV 18.6 % (11.6-14.6); RBC Distribution Width SD 52.0 fl (35.1-43.9); Red Blood Count 3.70 M/mm3 (4.2-5.4); White Blood Count 8.0 K/mm3 (4.4-11.0)
[2025-02-09 08:08] LABS: AST(SGOT) 21 U/L (<=31); Alanine Aminotransfer ALT/SGPT 11 U/L (<=34); Albumin, Serum 3.6 g/dL (3.4-4.8); Alkaline Phosphatase 131 U/L (35-104); Anion Gap 14 (5-15); BUN 19 mg/dL (4-19); BUN/Creat Ratio 14.4 RATIO (10-20); Calcium,Total 9.2 mg/dL (7.6-11.0); Carbon Dioxide 23.2 mmol/L (21.0-32.0); Chloride 100 mmol/L (98-108); Cholesterol 95 mg/dL (<=200); Estimated Creatinine Clearance 36.61 ml/min (50-250); Globulin 4.7 g/dL (2.2-4.2); Glucose 81 mg/dL (70-99); Low Density Lipoprotein Calc. 47 mg/dL; Potassium 3.3 mmol/L (3.3-5.1); Triglycerides 74 mg/dL; Very Low Density Lipoprotein 15 mg/dL (5-40); cholesterol:hdl ratio screen 2.89
[2025-02-09] MEDS: Magnesium Chloride 64 MG Delay Rel.Tablet 128 MG PO ×2 (08:28→21:03)
[2025-02-09] MEDS: Potassium Chloride Oral Tablet 20 MEQ 40 MEQ PO (08:28)
[2025-02-09] MEDS: Metoprolol(XL)Succ 50 MG Tablet PO (08:29)
--- NOTE | 2025-02-09 11:00 | CASEMGMT ---
Addendum entered by Anayeli Briggs 02/09/25 12:57: [facility] able to accept pt. SOC slated for Thursday. Pt made aware. Discharge plan updated. Original Note: RN?CM?ASSESSMENT ? RN?CM?to room to meet with patient for initial transition planning/care coordination?assessment.?RN?CM?introduced self and role at [facility].? Pt voices understanding and consents to?assessment?at this time.? Pt resting in bed in no distress at this time.? Pt is A/O at this time and answers all questions appropriately.?? Care providers, pharmacy, and demographics verified/updated at this time. ? Strata: 2 PCP: Dr Rocha Specialists: STACIE/cardio, Dr Baker-onc Preferred Pharmacy: [facility] Insurance: [employer] FRANKLIN Prescription Benefit:?yes HCPOA/LW: Pt states they have documents @ home but she is not sure what they are. LNOK: , Hardik. Daughter, Nitin. 2 sons. Living Arrangements: Lives w/ and dtr, Nitin, in 2-story home w/one step to enter w/a grab bar. FFSU. Pt is indep w/ADL's. does stay close by/monitors to ensure for her safety while she is showering. Pt manages her own medications and does cooking and laundry. assists. 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 Transportation:?Pt states she can drive, but she doesn't. provides transportation. DME: States has the following DME:?shower chair, walker, cane, grab bars, BGM w/sufficient supplies, pulse ox. No home O2. Discussed possible need of home O2. Pt states prefers [employer] if O2 is needed @ dc. Pt states no need for further DME at this time.? HHC/SNF: Hx of [facility] and has been to [facility]. Discussed discharge planning. Pt would like [facility] again and declines wanting list of other HHC options. Call placed to Y[facility] and referral made. ? Pt wishes to return home and states has no concerns with going home at time of discharge. CM?to follow for home oxygen needs and any further discharge planning/needs.? Pt voices no further concerns/needs at this time.? Advised pt to ask for?CM?if any further questions/concerns/needs arise.? Voices understanding. ? PLAN:??Home w/HHC. Follow for possible O2 @ dc. ? Vicente BSN?RN?CM ? ?
[2025-02-09] MEDS: 0.9% Saline Lock 10 ML Syringe IV ×2 (11:20→17:15)
--- NOTE | 2025-02-09 13:07 | PN_ITS ---
Subjective Subjective Patient seen and examined. She had no active complaints. She says her breathing is improving. She denied any cough, chest pain, palpitations, dizziness, nausea, vomiting or any other symptoms. REview of systems is otherwise negative. Objective Data Objective Data Vital Signs: Vital Signs Temp Pulse Resp BP Pulse Ox O2 Del Method O2 Flow Rate 97.2 F L 80 20 H 132/58 H 94 Nasal Cannula 3 02/09/25 08:17 02/09/25 08:29 02/09/25 08:17 02/09/25 08:17 02/09/25 08:17 02/09/25 08:27 02/09/25 08:27 Oxygen Flow Rate (L/min) 3 Oxygen Delivery Method Nasal Cannula Weight: 189 lb 9.561 oz Body Mass Index (BMI) 28.7 Intake & Output: Intake and Output for Last 24 Hours 02/07/25 02/08/25 02/09/25 23:59 23:59 23:59 Intake Total 500 / 500 Output Total 950 / 950 Balance 500 / 500 -950 / -950 Lab / Micro Data 02/09/25 06:44 02/09/25 06:44 Labs: Laboratory Results - last 24 hr 02/08/25 17:16: WBC 6.7, RBC 3.80 L, Hgb 8.8 L, Hct 30.0 L, MCV 78.9 L, MCH 23.2 L, MCHC 29.3 L, RDW Std Deviation 53.7 H, RDW Coeff of Jose Alberto 18.7 H, Plt Count 237, MPV 10.8, Immature Gran % (Auto) 0.700, Neut % (Auto) 63.8, Lymph % (Auto) 18.5 L, O'Brien % (Auto) 13.6 H, Eos % (Auto) 2.8, Baso % (Auto) 0.6, Absolute Neuts (auto) 4.3, Absolute Lymphs (auto) 1.24, Nucleated RBC % 0.6, Sodium 135, Potassium 4.1, Chloride 102, Carbon Dioxide 18.9 L, Anion Gap 15, BUN 21 H, C reatinine 1.42 H, Estim Creat Clear Calc 33.68 L, Est GFR (MDRD) Non-Af 36 L, BUN/Creatinine Ratio 14.4, Glucose 93, Hemoglobin A1c 6.7 H, Calcium 9.0, Total Bilirubin 0.56, AST 35 H, ALT 10, Alkaline Phosphatase 140 H, Troponin T High Sens 26 H, NT pro BNP II 1833 H, Total Protein 8.5 H, Albumin 3.7, Globulin 4.8 H, Albumin/Globulin Ratio 0.8 L 02/08/25 17:52: Lactic Acid 1.3 02/08/25 19:58: Magnesium 2.2, Troponin T Hi Sens 2 Hr 28 H, TSH 3.080 02/08/25 22:10: Troponin T Hi Sens 4Hr 27 H 02/08/25 23:12: POC Glucose 129 H 02/09/25 06:22: POC Glucose 88 02/09/25 06:44: WBC 8.0, RBC 3.70 L, Hgb 8.6 L, Hct 28.7 L, MCV 77.6 L, MCH 23.2 L, MCHC 30.0 L, RDW Std Deviation 52.0 H, RDW Coeff of Jose Alberto 18.6 H, Plt Count 322, MPV 9.5, Immature Gran % (Auto) 0.400, Neut % (Auto) 68.9, Lymph % (Auto) 15.1 L, O'Brien % (Auto) 12.7 H, Eos % (Auto) 2.3, Baso % (Auto) 0.6, Absolute Neuts (auto) 5.5, Absolute Lymphs (auto) 1.20, Nucleated RBC % 0.3, Sodium 137, Potassium 3.3, Chloride 100, Carbon Dioxide 23.2, Anion Gap 14, BUN 19, C reatinine 1.29 H, Estim Creat Clear Calc 36.61 L, Est GFR (MDRD) Non-Af 41 L, BUN/Creatinine Ratio 14.4, Glucose 81, Calcium 9.2, Phosphorus 3.3, Total Bilirubin 0.52, AST 21, ALT 11, Alkaline Phosphatase 131 H, Total Protein 8.3, Albumin 3.6, Globulin 4.7 H, Albumin/Globulin Ratio 0.8 L, Triglycerides 74, Cholesterol 95, LDL Cholesterol, Calc 47, VLDL Cholesterol 15, HDL Cholesterol 33 L, Cholesterol/HDL Ratio 2.89 02/09/25 12:33: POC Glucose 116 H Micro: Microbiology 02/08/25 17:16 Mucosa - Nose SARS-CoV-2, Influenza & RSV (PCR) - Final Radiography Diagnostic Testing: Radiology Impression Chest X-Ray 02/08/25 17:41 IMPRESSION: Mild pulmonary edema. No focal consolidations. Trace left base effusion. Moderate cardiomegaly. Reading Location: [facility] Physical Exam HEENT normocephalic, head/scalp atraumatic, moist oral mucous membranes and oropharynx normal Eyes PERRL and EOMs intact bilaterally Neck no lymphadenopathy and supple Lymph Lymphatic: no lymphedema noted Resp Resp Narrative: mildly diminished breath sounds bibasally, no wheezes or crackles. On 3L of oxygen by nasal canula Cardio regular rate, regular rhythm, S1 normal heart sound, S2 normal heart sound and no murmurs GI normal to inspection, nondistended, normoactive bowel sounds, soft to palpation and non-tender Extremity normal capillary refill, no clubbing, cyanosis or edema and no calf tenderness General Extremity: no tenderness to palpation of joints or extremities Skin General Skin Exam: no breakdown Neuro CN's II-XII intact bilaterally and no focal motor deficits Motor Exam: strength 5/5 throughout and general weakness Psych thought process normal and cooperative Appearance: appropriate Assessment & Plan Assessment/Plan (1) Generalized weakness: (2) Acute exacerbation of chronic heart failure: PLAN: Plan #Acute exacerbation of HFrEF * Patient currently on 4 L of oxygen which is her baseline. Admitted with complaint of shortness of breath and chest x-ray showed mild pulmonary edema with moderate cardiomegaly and trace left pleural effusion with no consolidations consistent with acute exacerbation of heart failure. * Has known EF of 45% and also known pulmonary arterial hypertension. * Been diuresed with IV Lasix. 2D echo ordered and pending. Breathing treatments bronchodilators. Titrate oxygen to maintain saturation above 90%. * * #Debility and weakness: PT OT on board. Fall precautions. #Paroxysmal A-fib: S/p AV isael ablation. Normal sinus rhythm. On xarelto #History of sick sinus syndrome, s/p pacemaker. Stable #Benign essential hypertension: On amlodipine and metoprolol as well as losartan and furosemide # Hyperlipidemia: On statin #History of anemia: Hemoglobin is 8.6 which is around her baseline. Monitor closely. #CKD III: Cr is 1.29. Will monitor. #Hypothyroidism: On Synthroid #Type 2 diabetes mellitus: On glimepiride and empagliflozin was on hold. Insulin sliding scale. Accu-Cheks ACHS. #History of multiple myeloma: Stable. Follow-up with oncology on outpatient basis #Depression with anxiety: On buspirone and amitriptyline #GERD: On PPI #History of osteoporosis: Stable #Osteoarthritis: On oxycodone acetaminophen DVT prophylaxis: On xarelto Charges/Coding Visit Charges Inpatient E&M: 16490 Subs Hosp L2
[2025-02-09] MEDS: MELATONIN 3 MG TABLET PO (22:28)
[2025-02-10] VITALS (8 sets, daily range): BP systolic 118–138; BP diastolic 56–63; PULSE 80–81; RESP 16–18; TEMP 36.1–36.7; O2SAT 91–96; BMI 27.7
[2025-02-10 08:01] LABS: Hematocrit 32.1 % (37-47); Hemoglobin 9.5 g/dL (12.0-15.0); Immature Granulocytes Count 0.030 X10^3/uL (0.0-0.0); Mean Corp Hgb Conc 29.6 g/dL (32-36); Mean Corpuscular Volume 78.9 fL (81-99); Mean Platelet Vol. 10.3 fl (6.2-12.0); NRBC Flagged by Analyzer 0 % (0-5); Platelet Count 347 K/mm3 (150-450); RBC Distribution Width CV 18.9 % (11.6-14.6); RBC Distribution Width SD 52.7 fl (35.1-43.9); Red Blood Count 4.07 M/mm3 (4.2-5.4); White Blood Count 6.6 K/mm3 (4.4-11.0)
[2025-02-10 09:18] LABS: Anion Gap 13 (5-15); BUN 18 mg/dL (4-19); BUN/Creat Ratio 13.0 RATIO (10-20); Calcium,Total 9.2 mg/dL (7.6-11.0); Carbon Dioxide 23.7 mmol/L (21.0-32.0); Chloride 99 mmol/L (98-108); Estimated Creatinine Clearance 34.37 ml/min (50-250); Glucose 107 mg/dL (70-99); Potassium 3.4 mmol/L (3.3-5.1)
[2025-02-10] MEDS: Potassium Chloride Oral Tablet 20 MEQ 40 MEQ PO (09:28)
[2025-02-10] MEDS: Magnesium Chloride 64 MG Delay Rel.Tablet 128 MG PO (09:29)
[2025-02-10] MEDS: Metoprolol(XL)Succ 50 MG Tablet PO (09:29)
[2025-02-10] MEDS: 0.9% Saline Lock 10 ML Syringe IV (09:41)
--- NOTE | 2025-02-10 11:08 | SP.MBSS_ITS ---
Modified Barium Swallow Patient Information Study Date: 02/10/25 Study Time: 10:30 Direct Billable Minutes: 75 Total Minutes procedure & reportin Diagnosis: dysphagia Referring Physician: Joanne Vo Medical History: ANTONIO YOUNG, is a 84 F with a past medical history of essential hypertension; on amlodipine, losartan, metoprolol and furosemide, hyperlipidemia; on simvastatin, hypothyroidism; on levothyroxine, overweight; with BMI of 29.6 this admission, DM-2; of unknown control on glimepiride and empagliflozin, paroxysmal atrial fibrillation; s/p AV isael ablation on apixaban, CAD; s/p RCA and LAD stents (2010) on as needed SL NTG, history of sick sinus syndrome; s/p PPM (2014), chronic mild systolic CHF; with LVEF of ~45% with 2+ mitral valve insuf ficiency and 1+ aortic valve insufficiency RSVP at 50 mmHg, secondary pulmonary arterial hypertension, history of multiple myeloma; followed by Dr. Baker, chronic iron deficiency anemia; on ferrous sulfate, depression with anxiety; on amitriptyline and buspirone twice daily, GERD; on omeprazole, osteoporosis; with history of compression fracture of thoracic vertebrae and OA; on oxycodone-acetaminophen 3 times daily as needed who presented to [facility] ER complaining of shortness of breath. Ms. Young reports she has had ongoing symptoms since last April in 2023 but acutely worsened over the past few days with worsening dyspnea on exertion that progressed to shortness of breath at rest. She also admits to feeling very fatigued and that she cannot do anything physically without becoming completely exhausted in addition to dry cough. CXR revealed mild pulmonary edema with moderate cardiomegaly and trace Left pleural effusion with no focal consolidations complicated by clinical evidence of Acute Respiratory Insufficiency with patient requiring 2L NC with a mildly elevated troponin T of 26 ng/L present on admission suspected to be due to acute cardiac strain. Pt was admitted to PCU and ST was subsequently ordered to evaluate swallow function d/t nursing report of difficulty swallowing pills. Pt agrees that she has a difficult time swallow ing large pills and reports that occasionally she will have to chew up a bite of food and then place the pill in w/ the bolus to swallow. Dentition: Upper Dentures and Lower Dentures Respiratory Status: Oxygenating on 2L/M nasal cannula Penetration-Aspiration Scale Penetration-Aspiration Scale: OBJECTIVE ASSESSMENT OF SWALLOW FUNCTION (QUANTITATIVE ? PER TRIAL): PENETRATION / ASPIRATION SCALE (SIDHU): 1 = does not enter airway 2 = enters airway/above vocal folds/ejected 3 = enters airway/above vocal folds/not ejected 4 = enters airway/contacts vocal folds/ejected 5 = enters airway/contacts vocal folds/not ejected 6 = enters airway/below vocal folds/ejected 7 = enters airway/below vocal folds/not ejected despite effort 8 = enters airway/below vocal folds/no effort VIDEOFLOROSCOPIC SCALE SCORE (SIDHU): Grade I = aspiration of material that has penetrated into the laryngeal vestibule, intact cough reflex Grade II = aspiration < 10 % of the bolus, intact cough reflex Grade III = aspiration of < 10 % of the bolus, reduced cough reflex or aspiration of > 10 % of the bolus, intact cough reflex Grade IV = aspiration of > 10 % of the bolus, reduced cough reflex Penetration-Aspiration Scale Score Thin Liquid via teaspoon: Result: 1= does not enter airway Thin Liquid via teaspoon Trial 2: Result: 3= enters airways/above vocal folds/not ejected Thin Liquid via small single sip: cup: Result: 1= does not enter airway Thin Liquid via sequential sips: cup: Result: 1= does not enter airway Thin Liquid via single sip: straw: Result: 1= does not enter airway Pudding: Result: 1= does not enter airway Cookie: Result: 1= does not enter airway Thin Liquid via small single sip: cup Trial 2: Result: 1= does not enter airway Oral Phase Labial Seal: No Labial Escape Tongue Control During Bolus Hold: Cohesive bolus between tongue to palatal seal Bolus Preparation/Mastication: Slow prolonged chewing/mashing with complete recollection Bolus Transport/Lingual Motion: Slowed tongue motion Oral Residue: Residue collection on oral structures Pharyngeal Phase Initiation of Pharyngeal Swallow: Bolus head in pyriforms Soft Palate Elevation: No bolus between soft palate and pharyngeal wall Laryngeal Elevation: Comp. Superior move thyroid cart w/comp. apprx arytenoid cart-epig pet Anterior Hyoid Excursion: Partial anterior movement Epiglottic Movement: Complete inversion Laryngeal Vestibule Closure at Height of Swallow: Complete; no air/contrast in laryngeal vestibule Pharyngeal Stripping Wave: Present - complete Pharyngoesophageal Segment Opening: Parital distension and partial duration; parital obstruction of flow Tongue Base Retraction: Narrow column of contrast between tongue base & post. pharyngeal wall Pharyngeal Residue: Trace residue within or on pharyngeal structures Esophageal Phase Esophageal Clearance: Esophageal retention w/ retrograde flow through pharyngoesophageal seg Diagnosis/Impression Diagnosis: mild oral dysphagia, pharyngoesophageal dysphagia MBS Impressions: The oral phase is marked by... -slowed mastication w/ slowed AP bolus transportation -mild oral holding w/ piecemeal deglutition of solids, likely anticipatory d/t slowed esophageal clearance The pharyngeal/esophageal phase is marked by... -trace laryngeal vestibule penetration 1x w/out complete ejection (PAS 3) -reduced PES distention w/ large cricopharyngeal prominence resulting in narrowed bolus clearance -trace tissue noted along the anterior wall of the esophagus -retrograde bolus flow appreciated w/ contrast returning through the PES into the pyriforms -impaired esophageal motility w/ retention and retrograde flow (GI consult recommended) -liquid was was not effective to clear the retention Recommendations Diet: Regular Textures and Thin Liquids Compensatory Strategies: Alternate bites/solids and sips/liquids, Sitting upright and Remain sitting upright for 30 minutes after PO intake Recommend Repeat Modified Barium Swallow: No Need for Skilled Speech Therapy Services: Yes Comment: ST to follow to instruct w/ compensatory strategies (positioning upright, alternating bites/sips, remaining upright for 30 minutes after intake) and monitor diet tolerance Recommended Referrals: GI Consult (See images in PACS) Education Completed: 1. Described result of evaluation. and 2. Pt understands evaluation & agrees with goals and treatment plan. Status Active ST Patient: Active Contact Information [facility] Speech Therapy:: Audelia Inman M.A. BLOOD BANK ORDER CONTROL CLERK Speech-Language Pathologist [facility] [address] [place] [address] [email or web address] [phone]
--- NOTE | 2025-02-10 14:01 | PN_ITS ---
Subjective Subjective Patient seen and examined. She had no complaints and was hoping to go home. Review of systems otherwise negative. She had modified barium swallow today which showed evidence of dysphagia. GI consult recommended. She is now on room air. Objective Data Objective Data Vital Signs: Vital Signs Temp Pulse Resp BP Pulse Ox O2 Del Method O2 Flow Rate 97.1 F L 80 16 138/63 H 91 Room Air 2 02/10/25 08:35 02/10/25 09:29 02/10/25 08:35 02/10/25 08:35 02/10/25 09:58 02/10/25 09:58 02/10/25 08:51 Oxygen Flow Rate (L/min) 2 Oxygen Delivery Method Room Air Weight: 182 lb 8.684 oz Body Mass Index (BMI) 27.7 Intake & Output: Intake and Output for Last 24 Hours 02/08/25 02/09/25 02/10/25 23:59 23:59 23:59 Intake Total 500 / 500 600 / 600 Output Total 950 / 950 Balance 500 / 500 -950 / -950 600 / 600 Lab / Micro Data 02/10/25 06:24 02/10/25 06:24 Labs: Laboratory Results - last 24 hr 02/09/25 17:23: POC Glucose 108 H 02/09/25 21:02: POC Glucose 164 H 02/10/25 06:24: WBC 6.6, RBC 4.07 L, Hgb 9.5 L, Hct 32.1 L, MCV 78.9 L, MCH 23.3 L, MCHC 29.6 L, RDW Std Deviation 52.7 H, RDW Coeff of Jose Alberto 18.9 H, Plt Count 347, MPV 10.3, Immature Gran % (Auto) 0.500, Neut % (Auto) 58.0, Lymph % (Auto) 21.2, [place] % (Auto) 15.7 H, Eos % (Auto) 4.0, Baso % (Auto) 0.6, Absolute Neuts (auto) 3.8, Absolute Lymphs (auto) 1.39, Nucleated RBC % 0, Sodium 136, Potassium 3.4, Chloride 99, Carbon Dioxide 23.7, Anion Gap 13, BUN 18, C reatinine 1.35 H, Estim Creat Clear Calc 34.37 L, Est GFR (MDRD) Non-Af 39 L, BUN/Creatinine Ratio 13.0, Glucose 107 H, Calcium 9.2, Phosphorus 3.4 02/10/25 06:40: POC Glucose 116 H 02/10/25 11:41: POC Glucose 164 H Micro: Microbiology 02/08/25 17:16 Mucosa - Nose SARS-CoV-2, Influenza & RSV (PCR) - Final Physical Exam Const alert, oriented x3, no apparent distress and average body habitus General Appearance: cooperative HEENT normocephalic, head/scalp atraumatic, hearing grossly normal bilaterally, moist oral mucous membranes and oropharynx normal Eyes PERRL, EOMs intact bilaterally and conjunctivae normal Neck no lymphadenopathy and supple Lymph Lymphatic: no lymphedema noted Resp Resp Narrative: mildly diminished breath sounds bibasally, no wheezes or crackles. On room air. Cardio regular rate, regular rhythm, S1 normal heart sound, S2 normal heart sound and no murmurs GI normal to inspection, nondistended, normoactive bowel sounds, soft to palpation, non-tender and non-distended Extremity normal to inspection, full ROM, normal capillary refill, no clubbing, cyanosis or edema and no calf tenderness General Extremity: no tenderness to palpation of joints or extremities Skin General Skin Exam: no breakdown Neuro oriented x3, CN's II-XII intact bilaterally, moves all extremities and no focal motor deficits Sensorium / Orientation: awake, alert, oriented to person, oriented to place and oriented to time Speech: speech normal Motor Exam: strength 5/5 throughout and general weakness Psych thought process normal, cooperative and affect normal Appearance: appropriate Assessment & Plan Assessment/Plan (1) Generalized weakness: (2) Acute exacerbation of chronic heart failure: PLAN: Plan #Acute exacerbation of HFrEF * Patient currently on 4 L of oxygen which is her baseline. Admitted with complaint of shortness of breath and chest x-ray showed mild pulmonary edema with moderate cardiomegaly and trace left pleural effusion with no consolidations consistent with acute exacerbation of heart failure. * Has known EF of 45% and also known pulmonary arterial hypertension. * Repeat 2D echo shows EF of 65% with severe pulmonary hypertension with pulmonary artery systolic pressure of 76 mmHg. * Been diuresed with IV Lasix. 2D echo ordered and pending. Breathing treatments bronchodilators. Titrate oxygen to maintain saturation above 90%. * Switch to p.o. Lasix. * #Dysphagia * Modified barium swallow showed mild oral dysphagia and pharyngoesophageal dysphagia. GI consulted per speech therapy recommendations. Await GI recommendations. * #Debility and weakness: PT OT on board. Fall precautions. #Paroxysmal A-fib: S/p AV isael ablation. Normal sinus rhythm. On xarelto #History of sick sinus syndrome, s/p pacemaker. Stable #Benign essential hypertension: On amlodipine and metoprolol as well as losartan and furosemide # Hyperlipidemia: On statin #History of anemia: Hemoglobin is 8.6 which is around her baseline. Monitor closely. #CKD III: Cr is 1.29. Will monitor. #Hypothyroidism: On Synthroid #Type 2 diabetes mellitus: On glimepiride and empagliflozin was on hold. Insulin sliding scale. Accu-Cheks ACHS. #History of multiple myeloma: Stable. Follow-up with oncology on outpatient basis #Depression with anxiety: On buspirone and amitriptyline #GERD: On PPI #History of osteoporosis: Stable #Osteoarthritis: On oxycodone acetaminophen DVT prophylaxis: On xarelto Disposition: Discharge home once okay with GI. Charges/Coding Visit Charges Inpatient E&M: 41569 Subs Hosp L2
--- NOTE | 2025-02-10 14:04 | CASEMGMT ---
Social Work SW met with pt to discuss advance directives. Pt does not have directives and is requesting to complete at this time. SW assisted pt in completing living will and HCPOA naming her . Copy placed on chart and original given to pt. FELICITY Gutierres
--- NOTE | 2025-02-10 18:19 | CON.PCM.GI_ITS ---
HPI Consult Data Date of Consult: 02/10/25 HPI Narrative Reason for Consultation: Abnormal imaging HPI Narrative: ANTONIO GUPTA, is 84-year-old female history of A-fib, sick sinus syndrome status post pacemaker, on chronic anticoagulation in the form of Xarelto, acute hypoxemic respiratory failure, heart failure, CAD status post stent, pulmonary artery hypertension. The patient states she currently does not wear oxygen at home despite her reported history of acute hypoxemic respiratory failure. States she was prescribed oxygen sometime ago however she did not use it so she returned it. Patient notes several months of worsening dyspnea on exertion. She was diagnosed with CHF exacerbation and acute on chronic heart failure. I was asked to see her due to abnormal swallowing test. She underwent speech and swallow evaluation and during her video swallow study it was noted to have narrowing at the base that esophagus. [facility] Medical History Coronary artery disease Iron deficiency anemia History of non-ST elevation myocardial infarction (NSTEMI) (2013) Longstanding persistent atrial fibrillation Essential (primary) hypertension Anxiety Hypothyroidism Hyperlipidemia Secondary pulmonary arterial hypertension Atherosclerosis of coronary artery of [place] heart without angina pectoris Paroxysmal atrial fibrillation Paroxysmal atrial flutter Sick sinus syndrome Home Medications ?Medication ?Instructions ?Recorded ?Last Taken ?Type buspirone 15 mg tablet 15 mg PO BID ANXIETY 3 Unknown History omeprazole 40 mg capsule,delayed 40 mg PO DAILY ACID R EFLUX 06/02/13 04/11/24 History release nitroglycerin 0.4 mg sublingual 0.4 mg sublingual Q5M PRN CHEST 04/21/15 Unknown History tablet PAIN glimepiride 4 mg tablet 2 mg PO DAILY DIABETES 01/2404/08/24 History amitriptyline 50 mg tablet 50 mg PO QHS DEPRESSION 03/04 Unknown History empagliflozin 10 mg tablet 10 mg PO DAILY DIABETES 03/04 Unknown History (Jardiance) ketotifen fumarate 0.025 % (0.035 1 drp ophthalmic (ey e) BID PRN 02/17/23 Unknown History %) eye drops (Alaway) ITCHING/ALLERGIES levothyroxine 100 mcg tablet 100 mcg PO DAILY THYROID 12/14/23 Unknown History (Synthroid) furosemide 40 mg tablet (Lasix) 40 mg PO DAILY water p ill #60 tabs 12/17/23 Unknown Rx rivaroxaban 20 mg tablet (Xarelto) 20 mg PO QPM #90 ta bs 10/06/24 Unknown Rx losartan 100 mg tablet 100 mg PO DAILY blood pressu re #90 11/18/24 Unknown Rx tabs potassium chloride 20 mEq 40 meq (2 x 20 mEq) PO QDAY #90 11/21/24 Unknown Rx tablet,extended release(part/cryst) tabs metoprolol succinate 50 mg 50 mg PO DAILY heart/BP #90 tabs 11/23/24 Unknown Rx tablet,extended release 24 hr simvastatin 20 mg tablet 20 mg PO QHS CHOLESTEROL #9 0 tabs 12/22/24 Unknown Rx amlodipine 10 mg tablet 10 mg PO DAILY 02/08/25 Unkn own History ciprofloxacin HCl 500 mg tablet 500 mg PO BID 02/08/25 Unknown History ferrous sulfate 325 mg (65 mg 65 mg PO DAILY 02/08/25 Unknown History iron) tablet (FeroSul) oxycodone-acetaminophen 5 mg-325 1 tab PO TID PRN PRN pain 02/08/25 Unknown History mg tablet Allergy/AdvReac Type Severity Reaction Status Date / Time poison fany extract (Poison Allergy Rash Verified 02/08/25 16:56 Fany Extract) Sulfa (Sulfonamide Allergy Hives Verified 02/08/25 16:56 Antibiotics) Family History Mother Cancer Father Cancer Brother CAD (coronary artery disease) Sister CAD (coronary artery disease) Surgical History S/P kyphoplasty History of tubal ligation History of appendectomy History of hysterectomy History of left heart catheterization (10/09/13) History of coronary artery stent placement (09/2010) Hx of atrioventricular node ablation (03/31/16) Presence of cardiac pacemaker (04/26/15) Social History household members: spouse Smoking Status: Former smoker how long ago did patient quit smokin's alcohol intake: never substance use type: does not use caffeine: Yes Type: coffee Number of servings: 3 ROS Constitutional Constitutional: Denies fatigue, fever(s), poor appetite, weight gain or weight loss Gastrointestinal Gastrointestinal: Denies belching, bloating, change in bowel habits, change in stool character, chewing difficulty, coffee ground emesis, constipation, cramping, diarrhea, dyspepsia, dysphagia, early satiety, excessive flatus, fecal incontinence, heartburn, hematemesis, hematochezia, hemorrhoids, loose stools, melena, nausea, odynophagia, rectal bleeding, tenesmus, vomiting or weight changes Physical Exam Const alert, oriented x3, no apparent distress and healthy appearing General Appearance: cooperative GI normal to inspection, nondistended, normoactive bowel sounds, soft to palpation, non-tender and non-distended Percussion: normal to percussion Rectal Exam: deferred Lab / Micro Data 02/10/25 06:24 02/10/25 06:24 Labs: Laboratory Results - last 24 hr 02/09/25 21:02: POC Glucose 164 H 02/10/25 06:24: WBC 6.6, RBC 4.07 L, Hgb 9.5 L, Hct 32.1 L, MCV 78.9 L, MCH 23.3 L, MCHC 29.6 L, RDW Std Deviation 52.7 H, RDW Coeff of Jose Alberto 18.9 H, Plt Count 347, MPV 10.3, Immature Gran % (Auto) 0.500, Neut % (Auto) 58.0, Lymph % (Auto) 21.2, [place] % (Auto) 15.7 H, Eos % (Auto) 4.0, Baso % (Auto) 0.6, Absolute Neuts (auto) 3.8, Absolute Lymphs (auto) 1.39, Nucleated RBC % 0, Sodium 136, Potassium 3.4, Chloride 99, Carbon Dioxide 23.7, Anion Gap 13, BUN 18, C reatinine 1.35 H, Estim Creat Clear Calc 34.37 L, Est GFR (MDRD) Non-Af 39 L, BUN/Creatinine Ratio 13.0, Glucose 107 H, Calcium 9.2, Phosphorus 3.4 02/10/25 06:40: POC Glucose 116 H 02/10/25 11:41: POC Glucose 164 H Assessment & Plan Assessment/Plan (1) Dysphagia: PLAN: 84-year-old woman who denies any current swallowing difficulties, such as trouble chewing or feeling like food is sticking in his throat. * Reports no pain or discomfort during swallowing. * Denies coughing, choking, or aspiration during meals. * Family reports no observed difficulties during mealtimes. * Patient reports maintaining a normal diet and fluid intake without modification. * Clinical Swallow Evaluation:?Oral motor exam reveals intact range of motion and strength of the tongue, lips, and jaw. Gag reflex is present and intact. No signs of drooling, facial asymmetry, or dysarthria noted. * Swallowing Test Results (e.g., Videofluoroscopic Swallow Study - VFSS): * Oral Phase:?Slight prolongation of oral transit time observed for solids and thin liquids compared to normative data for healthy elderly individuals. * Pharyngeal Phase:?Delayed pharyngeal swallow initiation noted, with occasional shallow laryngeal penetration (material entering the laryngeal vestibule above the vocal folds) observed during bolus presentation. Material is consistently cleared spontaneously without coughing or other overt signs of aspiration. * Esophageal Phase:?Esophageal motility within normal limits, though a slight increase in non-peristaltic contractions is noted. There was some evidence of a possible esophageal stricture observed. Assessment * 84-year-old male with?presbyphagia, or age-related changes in swallowing physiology. * Swallowing test (VFSS) reveals objective findings of delayed pharyngeal swallow without laryngeal penetration, consistent with age-related changes, not necessarily indicative of true dysphagia given the lack of symptomatic difficulty * Absence of reported dysphagia symptoms suggests compensatory strategies are in place or that the observed physiological changes are not yet impacting functional swallowing ability. * Risk factors for progression to dysphagia may be present, including age and potential decline in muscle mass and connective tissue elasticity. Plan * Education:?Discuss normal age-related swallowing changes (presbyphagia) and their potential impact. Emphasize the importance of monitoring for new or worsening swallowing symptoms. * Preventative Strategies: * Dietary:?Encourage a balanced diet and regular hydration. * Swallowing Maneuvers:?Recommend practicing safe swallowing techniques as a precautionary measure (e.g., small bites/sips, slow eating, mindful swallowing). * Oral Hygiene:?Emphasize regular oral care to reduce the risk of aspiration pneumonia. * Follow-up:?In the office for further work up. Charges/Coding Visit Charges Inpatient E&M: 39935 Init Hosp L3
--- NOTE | 2025-02-10 18:23 | DCINST_ITS ---
Discharge Instructions DC O2, CPAP, BIPAP needs Home O2 Discharge instructions: No Dressing / Incision Discharge Activity: No Restrictions Follow Up Care Test Results: Test results from this visit will be discussed in further detail at your follow- up appointment, if applicable. Discharge Plan Admission Admit Date/Time: 02/08/25 20:40 Primary Reason for Your Visit: shortness of breath Attending Provider: Joanne Vo Primary Care Provider: Matt Rocha Consulting Providers: Deandre Xiao Discharge Orders/Prescriptions Prescriptions: Continued glimepiride 4 mg tablet 2 mg PO DAILY amitriptyline 50 mg tablet 50 mg PO QHS Jardiance 10 mg tablet 10 mg PO DAILY ketotifen fumarate [Alaway] 0.025 % (0.035 %) drops 1 drp ophthalmic (eye) BID PRN (Reason: ITCHING/ALLERGIES ) omeprazole 40 MG capsule 40 mg PO DAILY buspirone 15 MG tablet 15 mg PO BID nitroglycerin 0.4 MG tablet 0.4 mg SUBLINGUAL Q5M PRN (Reason: CHEST PAIN ) levothyroxine [Synthroid] 100 mcg tablet 100 mcg PO DAILY furosemide [Lasix] 40 mg tablet 40 mg PO DAILY Qty: 60 0RF oxycodone-acetaminophen 5-325 mg tablet 1 tab PO TID PRN PRN (Reason: pain) amlodipine 10 mg tablet 10 mg PO DAILY ferrous sulfate [FeroSul] 325 mg (65 mg iron) tablet 65 mg PO DAILY ciprofloxacin HCl 500 mg tablet 500 mg PO BID Xarelto 20 mg tablet 20 mg PO QPM Qty: 90 3RF Rx Instructions: must administer with evening meal losartan 100 mg tablet 100 mg PO DAILY Qty: 90 3RF potassium chloride 20 mEq tablet,ER particles/crystals 40 meq PO QDAY Qty: 90 3RF metoprolol succinate 50 mg tablet extended release 24 hr 50 mg PO DAILY Qty: 90 3RF simvastatin 20 mg tablet 20 mg PO QHS Qty: 90 3RF Referrals / Follow Up: Matt Rocha MD [Primary Care Provider] - Disposition Disposition (needs filled in before D/C Order can be placed): Home, Self Care
--- NOTE | 2025-02-10 18:34 | NURSING ---
pt and given discharge instructions including medications, follow up appointments and all other discharge instructions. pt denies any further questions at this time. iv removed with catheter intact, clean dry dressing applied, pt tolerated well. telemetry removed and placed at nurses station. pt to be wheeled out to husbands waiting vehicle.
--- NOTE | 2025-02-11 14:55 | DS.PCM_ITS ---
Providers Date of Admission: 02/08/25 Date of Discharge: 02/10/25 Primary Care Physician: Dr. Matt Rocha MD Consultations 02/10/25 11:54 Consult: Gastroenterology Routine Consulting Provider: [facility] Reason for Consult: dysphagia, abnormal modified barium swallow EMERGENT Consult: No MD Notified: Yes Date Notified: 02/10/25 Time Notified: 11:55 Method of Notification: Text Reason For Visit: AE CHF WITH ACUTE RESPIRATORY INSUFFICIENCY Diagnosis Discharge Diagnosis (1) Dysphagia: Status: Acute Code(s): R13.10 - Dysphagia, unspecified Plan #Acute exacerbation of HFrEF * Patient currently on 4 L of oxygen which is her baseline. Admitted with complaint of shortness of breath and chest x-ray showed mild pulmonary edema with moderate cardiomegaly and trace left pleural effusion with no consolidations consistent with acute exacerbation of heart failure. * Has known EF of 45% and also known pulmonary arterial hypertension. * Repeat 2D echo shows EF of 65% with severe pulmonary hypertension with pulmonary artery systolic pressure of 76 mmHg. * Been diuresed with IV Lasix. 2D echo ordered and pending. Breathing treatments bronchodilators. Titrate oxygen to maintain saturation above 90%. * Switch to p.o. Lasix. * #Dysphagia * Modified barium swallow showed mild oral dysphagia and pharyngoesophageal dysphagia. GI consulted per speech therapy recommendations. Await GI recommendations. * #Debility and weakness: PT OT on board. Fall precautions. #Paroxysmal A-fib: S/p AV isael ablation. Normal sinus rhythm. On xarelto #History of sick sinus syndrome, s/p pacemaker. Stable #Benign essential hypertension: On amlodipine and metoprolol as well as losartan and furosemide # Hyperlipidemia: On statin #History of anemia: Hemoglobin is 8.6 which is around her baseline. Monitor closely. #CKD III: Cr is 1.29. Will monitor. #Hypothyroidism: On Synthroid #Type 2 diabetes mellitus: On glimepiride and empagliflozin was on hold. Insulin sliding scale. Accu-Cheks ACHS. #History of multiple myeloma: Stable. Follow-up with oncology on outpatient basis #Depression with anxiety: On buspirone and amitriptyline #GERD: On PPI #History of osteoporosis: Stable #Osteoarthritis: On oxycodone acetaminophen DVT prophylaxis: On xarelto Disposition: Discharge home once okay with GI. Medications at Discharge Home Medications buspirone 15 mg tablet 15 mg PO BID ANXIETY 06/02/13 omeprazole 40 mg capsule,delayed release 40 mg PO DAILY ACID REFLUX 06/02/13 nitroglycerin 0.4 mg sublingual tablet 0.4 mg sublingual Q5M PRN CHEST PAIN 04/21/15 glimepiride 4 mg tablet 2 mg PO DAILY DIABETES 01/24/22 amitriptyline 50 mg tablet 50 mg PO QHS DEPRESSION 02/17/23 empagliflozin 10 mg tablet (Jardiance) 10 mg PO DAILY DIABETES 02/17/23 ketotifen fumarate 0.025 % (0.035 %) eye drops (Alaway) 1 drp ophthalmic (eye) BID PRN ITCHING/ALLERGIES 02/17/23 levothyroxine 100 mcg tablet (Synthroid) 100 mcg PO DAILY THYROID 12/14/23 furosemide 40 mg tablet (Lasix) 40 mg PO DAILY water pill #60 tabs 12/17/23 rivaroxaban 20 mg tablet (Xarelto) 20 mg PO QPM #90 tabs 10/06/24 losartan 100 mg tablet 100 mg PO DAILY blood pressure #90 tabs 11/18/24 potassium chloride 20 mEq tablet,extended release(part/cryst) 40 meq (2 x 20 mEq) PO QDAY #90 tabs 11/21/24 metoprolol succinate 50 mg tablet,extended release 24 hr 50 mg PO DAILY heart/BP #90 tabs 11/23/24 simvastatin 20 mg tablet 20 mg PO QHS CHOLESTEROL #90 tabs 12/22/24 amlodipine 10 mg tablet 10 mg PO DAILY 02/08/25 ciprofloxacin HCl 500 mg tablet 500 mg PO BID 02/08/25 ferrous sulfate 325 mg (65 mg iron) tablet (FeroSul) 65 mg PO DAILY 02/08/25 oxycodone-acetaminophen 5 mg-325 mg tablet 1 tab PO TID PRN PRN pain 02/08/25 Hospital Course Operations None Procedures 2-D Echocardiogram Summary of Care Provided Minutes Spent on Discharge: 45 Hospital Course: Patient is an 84-year-old female with extensive past medical history as outlined was admitted to the ED on 02/08/2025 with complaint of shortness of breath which worsened with exertion but gradually worsened to the point where it was present at rest also. She felt very tired. She had recently been diagnosed with a urine infection and treated with ciprofloxacin. Said her symptoms are similar to when she previously had acute exacerbation of CHF. She has been taking her furosemide as prescribed and denied any lower extremity swelling. On admission proBNP was elevated at 1833 and chest x-ray showed mild pulmonary edema with cardiomegaly and trace pleural effusions. He was requiring 2 L of oxygen so she was admitted and managed for hypoxia due to acute exacerbation of heart failure. She was diuresed with IV Lasix. She had 2D echo which showed EF of 65% with normal ventricular systolic function and severe pulmonary hypertension with pulmonary artery systolic pressure of 76 mmHg. His shortness of breath improved and she felt much better. She did have a swallow evaluation which showed some mild dysphagia and so gastroenterology was consulted but they recommended that she could follow-up on outpatient basis. Her shortness of breath resolved and she was transitioned to oral Lasix. She was discharged home on 02/10/2025. He had a walking pulse ox which showed that she did not require any oxygen. She is follow-up with her primary care doctor within 1 to 2 weeks. Patient seen and examined prior to discharge. She had no complaints and was eager to be discharged home. Review of systems otherwise negative. Labs and vitals reviewed. Home medication reviewed and reconciled. Physical Exam Const alert, oriented x3, no apparent distress and average body habitus General Appearance: cooperative and comfortable HEENT normocephalic, head/scalp atraumatic, hearing grossly normal bilaterally, moist oral mucous membranes and oropharynx normal Mouth: oral and palatal mucosa normal Eyes PERRL, EOMs intact bilaterally and conjunctivae normal Neck no lymphadenopathy and supple Lymph Lymphatic: no lymphedema noted Resp Resp Narrative: mildly diminished breath sounds bibasally, no wheezes or crackles. On room air. Cardio regular rate, regular rhythm, S1 normal heart sound, S2 normal heart sound and no murmurs GI normal to inspection, nondistended, normoactive bowel sounds, soft to palpation, non-tender and non-distended Extremity normal to inspection, full ROM, normal capillary refill, no clubbing, cyanosis or edema and no calf tenderness General Extremity: no tenderness to palpation of joints or extremities Skin no rashes or lesions noted General Skin Exam: no breakdown Neuro oriented x3, CN's II-XII intact bilaterally, moves all extremities and no focal motor deficits Sensorium / Orientation: awake, alert, oriented to person, oriented to place and oriented to time Speech: speech normal Motor Exam: strength 5/5 throughout and general weakness Psych thought process normal, cooperative and affect normal Appearance: appropriate Weight / BMI Weight Weight: 182 lb 8.684 oz Body Mass Index (BMI) 27.7 ABG / Lab / Microbiology Data 02/10/25 06:24 02/10/25 06:24 Microbiology: Microbiology 02/08/25 17:16 Mucosa - Nose SARS-CoV-2, Influenza & RSV (PCR) - Final D/C Instructions Discharge Activity: Return to Normal Activity Call your doctor if you observe: Fever of 101 or Higher, Shortness of breath, Dizziness, Swelling in the ankles and Chest pain DC O2, CPAP, BIPAP Needs Home O2 Discharge instructions: No Meaningful Use Info Meaningful Use Meaningful Use Diagnoses (Choose all that apply): CHF CHF LISANDRA/ARB ordered at discharge?: Yes Documented LVEF (%): 65 Discharge Plan Admission Admit Date/Time: 02/08/25 20:40 Primary Reason for Your Visit: shortness of breath Attending Provider: Joanne Vo Primary Care Provider: Matt Rocha Consulting Providers: Deandre Xiao Discharge Orders/Prescriptions Prescriptions: Continued glimepiride 4 mg tablet 2 mg PO DAILY amitriptyline 50 mg tablet 50 mg PO QHS Jardiance 10 mg tablet 10 mg PO DAILY ketotifen fumarate [Alaway] 0.025 % (0.035 %) drops 1 drp ophthalmic (eye) BID PRN (Reason: ITCHING/ALLERGIES ) omeprazole 40 MG capsule 40 mg PO DAILY buspirone 15 MG tablet 15 mg PO BID nitroglycerin 0.4 MG tablet 0.4 mg SUBLINGUAL Q5M PRN (Reason: CHEST PAIN ) levothyroxine [Synthroid] 100 mcg tablet 100 mcg PO DAILY furosemide [Lasix] 40 mg tablet 40 mg PO DAILY Qty: 60 0RF oxycodone-acetaminophen 5-325 mg tablet 1 tab PO TID PRN PRN (Reason: pain) amlodipine 10 mg tablet 10 mg PO DAILY ferrous sulfate [FeroSul] 325 mg (65 mg iron) tablet 65 mg PO DAILY ciprofloxacin HCl 500 mg tablet 500 mg PO BID Xarelto 20 mg tablet 20 mg PO QPM Qty: 90 3RF Rx Instructions: must administer with evening meal losartan 100 mg tablet 100 mg PO DAILY Qty: 90 3RF potassium chloride 20 mEq tablet,ER particles/crystals 40 meq PO QDAY Qty: 90 3RF metoprolol succinate 50 mg tablet extended release 24 hr 50 mg PO DAILY Qty: 90 3RF simvastatin 20 mg tablet 20 mg PO QHS Qty: 90 3RF Referrals / Follow Up: Matt Rocha MD [Primary Care Provider] - Disposition Disposition (needs filled in before D/C Order can be placed): Home, Self Care Charges/Coding Visit Charges Inpatient E&M: 46172 Disch Hosp >30min
== END 2025-02-10 18:38 | disposition home or self-care (01) | DRG 291 ==
LOC: ED 17:41 → PCU 20:49
PROVIDERS: Admitting Provider Internal Medicine; Emergency Provider Emergency Medicine; PCP Family Medicine; Visit Provider Student in an Organized Health Care Education/Training Program
DX: I13.0 Hypertensive heart and chronic kidney disease with heart failure and stage 1 through stage 4 chronic kidney disease, or unspecified chronic kidney disease (principal); I50.23 Acute on chronic systolic (congestive) heart failure; K22.2 Esophageal obstruction; I27.20 Pulmonary hypertension, unspecified; E11.22 Type 2 diabetes mellitus with diabetic chronic kidney disease; D50.9 Iron deficiency anemia, unspecified; I49.5 Sick sinus syndrome; Z79.01 Long term (current) use of anticoagulants; N18.30 Chronic kidney disease, stage 3 unspecified; E03.9 Hypothyroidism, unspecified; F32.A Depression, unspecified; I48.0 Paroxysmal atrial fibrillation; K21.9 Gastro-esophageal reflux disease without esophagitis; E78.5 Hyperlipidemia, unspecified; I25.10 Atherosclerotic heart disease of native coronary artery without angina pectoris; M19.90 Unspecified osteoarthritis, unspecified site; F41.9 Anxiety disorder, unspecified; I25.2 Old myocardial infarction; R53.1 Weakness; Z68.29 Body mass index [BMI] 29.0-29.9, adult; E66.3 Overweight; M81.0 Age-related osteoporosis without current pathological fracture; R53.81 Other malaise; R13.10 Dysphagia, unspecified; Z95.0 Presence of cardiac pacemaker; Z87.891 Personal history of nicotine dependence; Z82.49 Family history of ischemic heart disease and other diseases of the circulatory system; Z79.899 Other long term (current) drug therapy; Z95.5 Presence of coronary angioplasty implant and graft; Z79.84 Long term (current) use of oral hypoglycemic drugs
CPT/HCPCS: 36415; 71045; 74230; 80048; 80053; 80061; 82962; 83036; 83605; 83735; 83880; 84100; 84443; 84484; 85025; 87631; 92610; 93005; 93306; 94668; 97162; 97166; 99285; A4216; J1938

== ENCOUNTER 2025-04-03 13:13 | Inpatient (IN) | payer MEDICARE, BC, SELFPAY ==
[2025-04-03] VITALS (9 sets, daily range): BP systolic 96–127; BP diastolic 52–83; PULSE 78–101; RESP 16–20; TEMP 36.6–36.9; O2SAT 81–96; BMI 30.8; BMI 29.1
--- NOTE | 2025-04-03 14:09 | RAD_ITS ---
PROCEDURE: CHEST 1 VIEW (PORTABLE) 04/03/2025 REASON FOR EXAM: CHEST PAIN TECHNIQUE: Single-view AP portable supine chest. COMPARISON: Chest x-ray of 02/08/2025. RAD/Chest 1 View (Portable) IMPRESSION: Left thoracic transvenous pacemaker with atrial and ventricular leads, stable i n position. A prominently calcified aorta is noted. Mild cardiomegaly is seen. Increased interstitial markings are seen, concerning for (but not diagnostic of ) mild interstitial pulmonary edema. No focal infiltrate is noted. No pleural effusion or pneumothorax is seen. No acute osseous change is seen. [id number]
--- NOTE | 2025-04-03 14:09 | RAD_ITS ---
PROCEDURE: PELVIS 1 OR 2 VIEWS 04/03/2025 REASON FOR EXAM: FALL TECHNIQUE: Procedure Code: RADPEL Modality: DX Procedure: PELVIS 2 VIEWS COMPARISON: None. RAD/Pelvis 1 or 2 Views IMPRESSION: Residual contrast material is seen within at least 2 sigmoid diverticula. Significant degenerative changes are seen of the visualized lower lumbar spine. Mild sacroiliac joint degenerative changes are noted. Deformity of the left femoral neck is seen, concerning for possible basicervica l mildly impacted fracture. Additional imaging of the left hip may be performed, at this time. Reading Location[id number]
--- NOTE | 2025-04-03 14:09 | EKG12_ITS ---
Test Reason : CP Blood Pressure : */* mmHG Vent. Rate : 80 BPM Atrial Rate : 80 BPM P-R Int : * ms QRS Dur : 168 ms QT Int : 462 ms P-R-T Axes : * 270 93 degrees QTcB Int : 532 ms Ventricular-paced rhythm Abnormal ECG Confirmed by KYUNG MORRISON, DICKSON ([id number]), make up editor MOISES LEW ([id number]) on 04/04/2025 7:29:35 AM Referred By: Confirmed By: DICKSON TRACEY MD
--- NOTE | 2025-04-03 14:09 | RAD_ITS ---
PROCEDURE: FEMUR MIN 2 VIEWS 04/03/2025 REASON FOR EXAM: FALL TECHNIQUE: Procedure Code: RADFEM Modality: DX Procedure: FEMUR MIN 2 VIEWS Laterality: Left femur COMPARISON: None FINDINGS: Bones: Nondisplaced impacted fracture of the subcapital region of the proximal left femur. Joints: Degenerative changes Soft tissues: Soft tissue swelling. Other: RAD/Femur Min 2 Views IMPRESSION: Nondisplaced impacted fracture of the subcapital region of the proximal left fe mur. Soft tissue swelling. Reading Location: [place] [id number]
[2025-04-03] MEDS: 0.9% Normal Saline (1000mL) 1,000 ML 999 ML IV (14:42)
[2025-04-03 14:48] LABS: Hematocrit 37.3 % (37-47); Hemoglobin 11.8 g/dL (12.0-15.0); Immature Granulocytes Count 0.140 X10^3/uL (0.0-0.0); Mean Corp Hgb Conc 31.6 g/dL (32-36); Mean Corpuscular Volume 91.4 fL (81-99); Mean Platelet Vol. 9.6 fl (6.2-12.0); NRBC Flagged by Analyzer 0 % (0-5); POSITIVE MORPHOLOGY YES; Platelet Count 236 K/mm3 (150-450); RBC Distribution Width CV 21.3 % (11.6-14.6); RBC Distribution Width SD 70.0 fl (35.1-43.9); Red Blood Count 4.08 M/mm3 (4.2-5.4); White Blood Count 17.4 K/mm3 (4.4-11.0)
[2025-04-03 14:51] LABS: Differential Indicated SCAN CRITERIA MET
[2025-04-03 14:57] LABS: Prothrombin Time (Protime)PT. 24.1 SECONDS (11.7-14.9)
[2025-04-03 14:58] LABS: Partial Thromboplast Time 40.9 Seconds (24.1-36.2)
--- NOTE | 2025-04-03 15:00 | CT_ITS ---
PROCEDURE: SPINE CERVICAL WITHOUT CONTRAS 04/03/2025 REASON FOR EXAM: FALL TECHNIQUE: Procedure Code: CTSPC Modality: CT Procedure: SPINE CERVICAL WITHOUT CONTRAS Coronal and Sagittal reconstruction series were provided. One or more dose reduction techniques were used (e.g., Automated exposure control, adjustment of the mA and/or kV according to patient size, use of iterative reconstruction technique. RADIATION DOSE SUMMARY: CTDlvol: 20.67 mGy DLP: 442.07 mGycm COMPARISON: None FINDINGS: Alignment: Straightening of the normal cervical lordosis. Vertebrae: Spondylosis. No vertebral fracture. Soft Tissues: No prevertebral soft tissue swelling. Other: C1-2: Degenerative changes at the atlantoaxial joint. C2-3: Mild degree of disc space narrowing. No evidence of fracture. Facet joint osteoarthritis. C3-4: Minimal degree of anterior listhesis of C3 on C4 due to facet joint osteoarthritis and hypertrophy. No significant stenosis is seen. C4-5: Moderate degree of disc space narrowing. Anterior spondylosis. Facet joint osteoarthritis and hypertrophy. Mild degree of bilateral neural foraminal stenosis. C5-6: Marked degree of disc space narrowing. Spondylosis. No evidence of stenosis. C6-7: Moderate degree of disc space narrowing. No evidence of stenosis. C7-T1: CT/Spine Cervical without Contras IMPRESSION: DEGENERATIVE CHANGES OF THE CERVICAL SPINE. NO EVIDENCE OF SIGNIFICANT OSSEOUS CENTRAL CANAL OR NEURAL FORAMINAL STENOSIS. Reading Location: [place] [id number]
--- NOTE | 2025-04-03 15:00 | CT_ITS ---
PROCEDURE: BRAIN/HEAD WITHOUT CONTRAST 04/03/2025 REASON FOR EXAM: FALL TECHNIQUE: Procedure Code: CTBR Modality: CT Procedure: BRAIN/HEAD WITHOUT CONTRAST Coronal and Sagittal reconstruction series were provided. One or more dose reduction techniques were used (e.g., Automated exposure control, adjustment of the mA and/or kV according to patient size, use of iterative reconstruction technique. RADIATION DOSE SUMMARY: CTDlvol: 47.06 mGy DLP: 907.97 mGycm COMPARISON: Prior study dated December 27, 2018. FINDINGS: Brain: Low density in the periventricular white matter suggests mild chronic small vessel ischemic changes. CSF Spaces: Moderate generalized cerebral atrophy atherosclerotic calcification of the vertebral arteries and cavernous portions of the internal carotid arteries bilaterally. Sinuses/Mastoids: Mucosal thickening of the right maxillary sinus. Bones: No skull fracture is seen. CT/Brain/Head without Contrast IMPRESSION: CHRONIC CHANGES. NO ACUTE FINDINGS. Reading Location: [place] [id number]
[2025-04-03 15:12] LABS: Anion Gap 12 (5-15); Anisocytosis 1+; BUN 18 mg/dL (4-19); BUN/Creat Ratio 13.5 RATIO (10-20); Calcium,Total 9.2 mg/dL (7.6-11.0); Carbon Dioxide 22.0 mmol/L (21.0-32.0); Chloride 101 mmol/L (98-108); Estimated Creatinine Clearance 36.41 ml/min (50-250); Glucose 181 mg/dL (70-99); Potassium 4.4 mmol/L (3.3-5.1)
--- NOTE | 2025-04-03 16:16 | EX.ED.DYSGE1 ---
HPI History of Present Illness Chief Complaint: Lower Extremity Injury Narrative Narrative: Patient is a 84-year-old female with past medical history of paroxysmal atrial fibrillation/flutter, sick sinus syndrome, hypothyroidism, anxiety, hypertension who presented to the emergency department the chief complaint of left hip pain. Patient states that she slipped on a hardwood floor landed on her left hip and had immediate pain. States that she cannot get out of she called EMS to have her brought here. Patient states that she did not hit her head did not pass out states that she does not have any pain anywhere else. [facility] Medical History Overweight (BMI 25.0-29.9) Coronary artery disease Iron deficiency anemia History of non-ST elevation myocardial infarction (NSTEMI) (2013) Longstanding persistent atrial fibrillation Essential (primary) hypertension Anxiety Hypothyroidism Hyperlipidemia Secondary pulmonary arterial hypertension Atherosclerosis of coronary artery of [place] heart without angina pectoris Paroxysmal atrial fibrillation Paroxysmal atrial flutter Sick sinus syndrome Home Medications ?Medication ?Instructions ?Recorded ?Last Taken ?Type buspirone 15 mg tablet 15 mg PO BID ANXIETY 06/02/13 Unknown History omeprazole 40 mg capsule,delayed 40 mg PO DAILY ACID REFLUX 06/02/13 04/11/24 History release nitroglycerin 0.4 mg sublingual 0.4 mg sublingual Q5M PRN CHEST 04/21/15 Unknown History tablet PAIN glimepiride 4 mg tablet 2 mg PO DAILY DIABETES 01/24/22 04/08/24 History amitriptyline 50 mg tablet 50 mg PO QHS DEPRESSION 02/17/23 Unknown History empagliflozin 10 mg tablet 10 mg PO DAILY DIABETES 02/17/23 Unknown History (Jardiance) ketotifen fumarate 0.025 % (0.035 1 drp ophthalmic (eye) BID PRN 02/17/23 Unknown History %) eye drops (Alaway) ITCHING/ALLERGIES levothyroxine 100 mcg tablet 100 mcg PO DAILY THYROID 12/14/23 Unknown History (Synthroid) furosemide 40 mg tablet (Lasix) 40 mg PO DAILY water pill #60 tabs 12/17/23 Unknown Rx rivaroxaban 20 mg tablet (Xarelto) 20 mg PO QPM #90 tabs 10/06/24 Unknown Rx losartan 100 mg tablet 100 mg PO DAILY blood pressure #90 11/18/24 Unknown Rx tabs potassium chloride 20 mEq 40 meq (2 x 20 mEq) PO QDAY #90 11/21/24 Unknown Rx tablet,extended release(part/cryst) tabs metoprolol succinate 50 mg 50 mg PO DAILY heart/BP #90 tabs 11/23/24 Unknown Rx tablet,extended release 24 hr simvastatin 20 mg tablet 20 mg PO QHS CHOLESTEROL #90 tabs 12/22/24 Unknown Rx amlodipine 10 mg tablet 10 mg PO DAILY 02/08/25 Unknown History ferrous sulfate 325 mg (65 mg 65 mg PO DAILY 02/08/25 Unknown History iron) tablet (FeroSul) oxycodone-acetaminophen 5 mg-325 1 tab PO TID PRN PRN pain 02/08/25 Unknown History mg tablet ascorbic acid (vitamin C) 500 mg 500 mg PO BID 04/03/25 Unknown History tablet (Vitamin C) Allergy/AdvReac Type Severity Reaction Status Date / Time poison fany extract (Poison Allergy Rash Verified 04/03/25 13:18 Fany Extract) Sulfa (Sulfonamide Allergy Hives Verified 04/03/25 13:18 Antibiotics) Family History Mother Cancer Father Cancer Brother CAD (coronary artery disease) Sister CAD (coronary artery disease) Surgical History S/P kyphoplasty History of tubal ligation History of appendectomy History of hysterectomy History of left heart catheterization (10/09/13) History of coronary artery stent placement (09/2010) Hx of atrioventricular node ablation (03/31/16) Presence of cardiac pacemaker (04/26/15) Social History household members: spouse Smoking Status: Former smoker how long ago did patient quit smokin's alcohol intake: never substance use type: does not use caffeine: Yes Type: coffee Number of servings: 3 ROS ROS ED ROS Narrative Constitutional: Denies any fevers, chills, headaches Cardiovascular: Denies chest pain Respiratory: No shortness of breath Abdomen: Denies abdominal pain nausea vomit diarrhea : Denies urinary symptoms Neurological: Denies any numbness, weakness, tingling Musculoskeletal: Denies back pain Skin: Denies any rashes or lesions EXAM Physical Exam Narrative Exam Narrative: General: Patient is lying in bed rest comfortably did not appear to be acute distress Head: Atraumatic, normocephalic Eyes: PERRL bilaterally, EOMI bilaterally, no conjunctival injection noted Neck: Soft, supple, trachea midline Cardiovascular: Regular rate and rhythm Respiratory: Clear to auscultation bilaterally no rales rhonchi or wheeze noted Abdomen: No tenderness to palpation Musculoskeletal: Patient has tenderness palpation over the left hip although bony prominence palpated joints taken through full range of motion no pain elicited, no tenderness palpation midline of the cervical spine, no tenderness palpation midline of the thoracic lumbar spine Extremities: +4/5 strength noted in the bilateral upper extremities in the right lower extremity, pain limited the strength exam in the left lower extremity, DP pulses +2/4 in the left lower extremity Neurological: Patient follow commands that she was at [facility] the year is 2024 Skin: Warm, dry, intact no rashes or lesions noted Const Vital Signs: 04/03/25 13:13 04/03/25 14:09 04/03/25 15:13 Temperature 98 F Temperature Source Oral Pulse Rate 78 83 Respiratory Rate 20 H 20 H Blood Pressure 96/83 H Blood Pressure Mean 87 Pulse Ox 96 93 Oxygen Delivery Method Room Air Room Air Room Air MDM MDM MDM Narrative Medical decision making narrative: Patient is a 84-year-old female who presents to the emergency department after mechanical fall landing on her left hip complaining of pain. On the differential diagnose includes Melamin to femoral neck fracture, intertrochanteric hip fracture, subtrochanteric hip fracture. Once workup is obtained reviewed she will be reevaluated. Patient be given IV morphine and Zofran as well as fluids. Patient did become hypoxic here in the emergency department and daughter at bedside notes that she normally has issues with her oxygen level when she comes into the emergency department states that this runs on the low side Patient's CBC showed leukocytosis of 17,000 this is likely reactive as there is no identifiable source infection, hemoglobin stable 11.8, platelet count of 236. Sodium was 135, potassium was 4.4, creatinine was 1.34 patient has some underlying chronic kidney disease according to previous blood draws since patient was hypoxic here I did add a proBNP on given her chest x-ray or read. Patient CT head brain without contrast reviewed and showed chronic changes no acute findings. Patient CT cervical spine reviewed which showed degenerative changes cervical spine no evidence of significant osseous central canal or neural aminal foraminal stenosis. Patient's chest x-ray reviewed by myself by radiology and showed a left thoracic transverse pacemaker with atrial and ventricular leads stable positioning mild cardiomegaly. Increased interstitial markings seen concern for but not diagnostic of mild interstitial pulmonary edema no focal infiltrate noted. Patient's femur x-ray reviewed by myself by radiology showed a nondisplaced impacted fracture of the subcapital region of the proximal left femur soft tissue swelling noted. Patient's pelvis x-ray reviewed by myself by radiology which showed the left hip fracture as noted above with mild sacroiliac joint degenerative changes noted. Discussed case with on-call orthopedic surgeon Dr. Rodriguez who is on for [facility] who she states that she is seen in the past and that he notes that the patient could be admitted to medicine. Will discuss case with hospitalist for admission. Patient is on Xarelto Discussed case with hospitalist Dr. Bonner who accept patient for admission. Notified the patient and for members at bedside they are agreeable to plan all question concerns answered. Lab Data Labs: Laboratory Results - last 24 hr 04/03/25 14:35 WBC 17.4 H RBC 4.08 L Hgb 11.8 L Hct 37.3 MCV 91.4 MCH 28.9 MCHC 31.6 L RDW Std Deviation 70.0 H RDW Coeff of Jose Alberto 21.3 H Plt Count 236 MPV 9.6 Immature Gran % (Auto) 0.800 Neut % (Auto) 86.5 H Lymph % (Auto) 4.3 L Dale % (Auto) 8.1 Eos % (Auto) 0.1 Baso % (Auto) 0.2 Absolute Neuts (auto) 15.0 H Absolute Lymphs (auto) 0.75 L Nucleated RBC % 0 Anisocytosis 1+ PT 24.1 H INR 2.1 APTT 40.9 H Sodium 135 Potassium 4.4 Chloride 101 Carbon Dioxide 22.0 Anion Gap 12 BUN 18 Creatinine 1.34 H Estim Creat Clear Calc 36.41 L Est GFR (MDRD) Non-Af 39 L BUN/Creatinine Ratio 13.5 Glucose 181 H Calcium 9.2 Radiography Diagnostic Testing: Clinical Impression(s) from Imaging Studies Chest X-Ray 04/03/25 14:09 IMPRESSION: Left thoracic transvenous pacemaker with atrial and ventricular leads, stable in position. A prominently calcified aorta is noted. Mild cardiomegaly is seen. Increased interstitial markings are seen, concerning for (but not diagnostic of) mild interstitial pulmonary edema. No focal infiltrate is noted. No pleural effusion or pneumothorax is seen. No acute osseous change is seen. [id number] 04/03/25 14:09 IMPRESSION: Nondisplaced impacted fracture of the subcapital region of the proximal left femur. Soft tissue swelling. Reading Location: [facility] Pelvis X-Ray 04/03/25 14:09 IMPRESSION: Residual contrast material is seen within at least 2 sigmoid diverticula. Significant degenerative changes are seen of the visualized lower lumbar spine. Mild sacroiliac joint degenerative changes are noted. Deformity of the left femoral neck is seen, concerning for possible basicervical mildly impacted fracture. Additional imaging of the left hip may be performed, at this time. [id number] Brain [facility] 04/03/25 15:00 IMPRESSION: CHRONIC CHANGES. NO ACUTE FINDINGS. Reading Location: [facility] 04/03/25 15:00 IMPRESSION: DEGENERATIVE CHANGES OF THE CERVICAL SPINE. NO EVIDENCE OF SIGNIFICANT OSSEOUS CENTRAL CANAL OR NEURAL FORAMINAL STENOSIS. Reading Location: [facility] Discharge Plan Dx/Rx/DC Orders Clinical Impression: History of coronary artery stent placement, Hyperlipidemia, Essential (primary) hypertension, Heart failure, Closed left hip fracture Disposition Disposition: Acute Care Hospital [facility]
[2025-04-03 16:45] LABS: Pro- Brain NATRIURETIC PEPTIDE 1850 pg/mL (<=1800)
--- NOTE | 2025-04-03 17:13 | PCM.HP.STD ---
HPI - General General Date of Admission: 04/03/25 Date of Service: 04/03/25 Chief Complaint: Left hip pain after fall HPI Narrative ANTONIO GUPTA, is a 84-year-old female history of A-fib/flutter, sick sinus syndrome with pacemaker placement, anxiety, hypertension, GERD, diabetes who presented [facility] ED 04/03/2025 for left hip pain. She slipped on hardwood floor and landed on her left hip and had immediate pain. In the ED temp 98, heart rate 78, blood pressure 96/83, respiratory rate 20 and pulse ox 96% on room air. White blood cell count 17.4, hemoglobin 11.8, BMP with a BUN of 18 and a creatinine of 1.34. INR 2.1. CT brain no acute changes. Cervical spine no acute process. Femur x-ray and x-ray pelvis with nondisplaced impacted fracture of subcapital region of proximal left femur with soft tissue swelling. Chest x-ray with some increased interstitial markings but no focal infiltrate. Given patient's hip fracture Ortho contacted who recommended hospital admission with Ortho consult. Hospitalist contacted for admission. Patient evaluated bedside. She reports walking up her stairs and that her foot caught and she fell on the hardwood floor on her left hip. Denies hurting anything else or hitting her head. Denies any significant new shortness of breath or chest pain or cough. Gets some swelling in her lower extremities which is not necessarily new and she wears lower extremity stockings for this. Was noted to be hypoxic into the mid to high 80s while laying flat on room air and was placed on 2 L of nasal cannula. Does have history of heart failure, reports compliance with her Lasix. Denies any bowel or bladder concerns or changes [facility] Medical History Overweight (BMI 25.0-29.9) Coronary artery disease Iron deficiency anemia History of non-ST elevation myocardial infarction (NSTEMI) (2013) Longstanding persistent atrial fibrillation Essential (primary) hypertension Anxiety Hypothyroidism Hyperlipidemia Secondary pulmonary arterial hypertension Atherosclerosis of coronary artery of [place] heart without angina pectoris Paroxysmal atrial fibrillation Paroxysmal atrial flutter Sick sinus syndrome Home Medications ?Medication ?Instructions ?Recorded ?Last Taken ?Type buspirone 15 mg tablet 15 mg PO TID ANXIETY 06/02/13 04/03/25 History omeprazole 40 mg capsule,delayed 40 mg PO DAILY ACID REFLUX 06/02/13 04/02/25 History release nitroglycerin 0.4 mg sublingual 0.4 mg sublingual Q5M PRN CHEST 04/21/15 Unknown History tablet PAIN amitriptyline 50 mg tablet 50 mg PO QHS DEPRESSION 02/17/23 04/02/25 History empagliflozin 10 mg tablet 10 mg PO DAILY DIABETES 02/17/23 04/03/25 History (Jardiance) ketotifen fumarate 0.025 % (0.035 1 drp ophthalmic (eye) BID PRN 02/17/23 04/02/25 History %) eye drops (Alaway) ITCHING/ALLERGIES levothyroxine 100 mcg tablet 100 mcg PO DAILY THYROID 12/14/23 04/03/25 History (Synthroid) furosemide 40 mg tablet (Lasix) 40 mg PO DAILY water pill #60 tabs 12/17/23 04/03/25 Rx rivaroxaban 20 mg tablet (Xarelto) 20 mg PO QPM #90 tabs 10/06/24 04/02/25 Rx losartan 100 mg tablet 100 mg PO DAILY blood pressure #90 11/18/24 04/03/25 Rx tabs potassium chloride 20 mEq 40 meq (2 x 20 mEq) PO QDAY #90 11/21/24 04/02/25 Rx tablet,extended release(part/cryst) tabs metoprolol succinate 50 mg 50 mg PO DAILY heart/BP #90 tabs 11/23/24 04/02/25 Rx tablet,extended release 24 hr simvastatin 20 mg tablet 20 mg PO QHS CHOLESTEROL #90 tabs 12/22/24 04/02/25 Rx amlodipine 10 mg tablet 10 mg PO DAILY 02/08/25 04/02/25 History ferrous sulfate 325 mg (65 mg 65 mg PO DAILY 02/08/25 04/03/25 History iron) tablet (FeroSul) oxycodone-acetaminophen 5 mg-325 1 tab PO TID PRN PRN pain 02/08/25 04/03/25 History mg tablet ascorbic acid (vitamin C) 500 mg 500 mg PO BID 04/03/25 04/03/25 History tablet (Vitamin C) Allergy/AdvReac Type Severity Reaction Status Date / Time poison fany extract (Poison Allergy Rash Verified 04/03/25 13:18 Fany Extract) Sulfa (Sulfonamide Allergy Hives Verified 04/03/25 13:18 Antibiotics) Family History Mother Cancer Father Cancer Brother CAD (coronary artery disease) Sister CAD (coronary artery disease) Surgical History S/P kyphoplasty History of tubal ligation History of appendectomy History of hysterectomy History of left heart catheterization (10/09/13) History of coronary artery stent placement (09/2010) Hx of atrioventricular node ablation (03/31/16) Presence of cardiac pacemaker (04/26/15) Social History household members: spouse Smoking Status: Former smoker how long ago did patient quit smokin's alcohol intake: never substance use type: does not use caffeine: Yes Type: coffee Number of servings: 3 ROS ROS Narrative General: Denies fever/chills HENT: Denies headache, denies stuffy nose, denies sore throat EYES: Denies changes in vision Resp: Denies cough, denies any new shortness of breath Cardiac: Denies chest pain GI: Denies abdominal pain, denies changes in bowel, has felt intermittently little bit nauseous since her fall : Denies changes in urination Extremity: Bilateral lower extremity swelling for which she wears compression stockings and is not acute MSK: Denies weakness, left thigh pain feeling better to some extent after pain meds Neuro: Denies any numbness/tingling Heme: Denies any bleeding or bruising Skin: Denies rashes Psychiatric: No complaints voiced Vital Signs Vital Signs Vital Signs: 04/03/25 13:13 04/03/25 14:09 04/03/25 15:09 Temperature 98 F Temperature Source Oral Pulse Rate 78 Respiratory Rate 20 H Blood Pressure 96/83 H Blood Pressure Mean 87 Pulse Ox 96 81 Oxygen Delivery Method Room Air Room Air Room Air Oxygen Flow Rate (L/min) 04/03/25 15:13 04/03/25 16:30 04/03/25 16:54 Temperature 98 F Temperature Source Pulse Rate 83 83 Respiratory Rate 20 H 20 H Blood Pressure 96/83 H Blood Pressure Mean 87 Pulse Ox 93 93 92 Oxygen Delivery Method Nasal Cannula Nasal Cannula Oxygen Flow Rate (L/min) 2 5 Weight Weight: 92 kg Body Mass Index (BMI) 30.8 Physical Exam Narrative General: Alert, no apparent distress HEENT: normocephalic Eyes: Anicteric, normal conjunctiva, extraocular movements grossly intact Neck: Supple Respiratory: Very faint crackles at the bases without any wheezes or rhonchi normal respiratory effort Cardiovascular: Regular rate GI: Soft, nontender, nondistended Extremities: No edema Musculoskeletal: Moving all extremities though left extremity limited due to pain Neuro: No overt focal neurological deficits Skin: No rashes appreciated Psych: Cooperative Results Lab / Micro Data 04/03/25 14:35 04/03/25 14:35 Labs: Laboratory Results - last 24 hr 04/03/25 14:35: WBC 17.4 H, RBC 4.08 L, Hgb 11.8 L, Hct 37.3, MCV 91.4, MCH 28.9, MCHC 31.6 L, RDW Std Deviation 70.0 H, RDW Coeff of Jose Alberto 21.3 H, Plt Count 236, MPV 9.6, Immature Gran % (Auto) 0.800, Neut % (Auto) 86.5 H, Lymph % (Auto) 4.3 L, [place] % (Auto) 8.1, Eos % (Auto) 0.1, Baso % (Auto) 0.2, Absolute Neuts (auto) 15.0 H, Absolute Lymphs (auto) 0.75 L, Nucleated RBC % 0, Anisocytosis 1+, PT 24.1 H, INR 2.1, APTT 40.9 H, Sodium 135, Potassium 4.4, Chloride 101, Carbon Dioxide 22.0, Anion Gap 12, BUN 18, Creatinine 1.34 H, Estim Creat Clear Calc 36.41 L, Est GFR (MDRD) Non-Af 39 L, BUN/Creatinine Ratio 13.5, Glucose 181 H, Calcium 9.2, NT pro BNP II 1850 H Imaging Radiology Impression Chest X-Ray 04/03/25 14:09 IMPRESSION: Left thoracic transvenous pacemaker with atrial and ventricular leads, stable in position. A prominently calcified aorta is noted. Mild cardiomegaly is seen. Increased interstitial markings are seen, concerning for (but not diagnostic of) mild interstitial pulmonary edema. No focal infiltrate is noted. No pleural effusion or pneumothorax is seen. No acute osseous change is seen. [id number] 04/03/25 14:09 IMPRESSION: Nondisplaced impacted fracture of the subcapital region of the proximal left femur. Soft tissue swelling. Reading Location: [facility] Pelvis X-Ray 04/03/25 14:09 IMPRESSION: Residual contrast material is seen within at least 2 sigmoid diverticula. Significant degenerative changes are seen of the visualized lower lumbar spine. Mild sacroiliac joint degenerative changes are noted. Deformity of the left femoral neck is seen, concerning for possible basicervical mildly impacted fracture. Additional imaging of the left hip may be performed, at this time. [id number] 04/03/25 15:00 IMPRESSION: CHRONIC CHANGES. NO ACUTE FINDINGS. Reading Location: [facility] 04/03/25 15:00 IMPRESSION: DEGENERATIVE CHANGES OF THE CERVICAL SPINE. NO EVIDENCE OF SIGNIFICANT OSSEOUS CENTRAL CANAL OR NEURAL FORAMINAL STENOSIS. Reading Location: [facility] Assessment & Plan Assessment/Plan (1) Closed left hip fracture: PLAN: Plan # Left hip fracture -Imaging: Femur x-ray with nondisplaced impacted fracture of subcapital region of proximal left femur -Ortho consult -Pain control and scheduled bowel regimen -Will continue patient's home oxycodone 3 times daily as scheduled as reportedly she does take it regularly -Patient's last dose of Xarelto was the evening of 04/02, unsure when surgery will take place, will make patient n.p.o. at midnight until this information is obtained to verify no delays -PT/OT -Case management and social work consults for DC planning #Hx chronic HF - Unclear subtype, daughter and patient report history of heart failure -Last echo 03/26/2024 with EF of 45 to 50% unable to assess diastolic dysfunction with apex akinetic -BNP 1800 but similar to what it was previous -Has chronic swelling in lower extremities and wears compression stockings -She is on 2 L nasal cannula, suspect patient's history of chronic heart failure and laying flat is causing suboptimal oxygenation however unable to sit up easily due to fracture -Will give dose of IV Lasix and monitor on pulse ox, given BNP similar to previous and no complaints of increased shortness of breath and her lower extremity swelling is chronic do not think she is in acute exacerbation -Will monitor daily weights and I's and O's # History of A-fib/flutter/sick sinus syndrome with pacemaker placement -Hold home Xarelto -Metoprolol with holding parameters #Type 2 diabetes mellitus -Glucose checks and sliding scale insulin -Hold home oral hypoglycemics # Elevated white blood cell count -No infectious signs or symptoms -Denies any urinary complaints -Afebrile -Repeat in a.m., can consider further workup if indicated moving forward #Hypothyroidism -Continue Synthroid #Depression/anxiety -Continue home medications #Hypertension - Continue metoprolol with holding parameters, hold other home antihypertensives to allow for pain control and patient have surgery #Hx of CAD -w/ previous stenting - Holding Xarelto, continue statin, beta-rosaura as tolerated #GERD -Continue PPI #DVT ppx: SCDs Ashli Bonner MD Charges/Coding Visit Charges Inpatient E&M: 40580 Init Hosp L2
--- NOTE | 2025-04-03 17:33 | NURSING ---
talked with pharmacist about entering tranexamic acid 1gm iv preop as well as joint pain cocktail by pharmacy aware they will enter.
[2025-04-03] MEDS: Potassium Chloride Oral Tablet 20 MEQ 40 MEQ PO (18:21)
[2025-04-03] MEDS: 0.9% Saline Lock 10 ML Syringe IV (19:45)
[2025-04-03] MEDS: Senna/Docusate Sodium 1 Tablet 2 TABLET PO (21:38)
[2025-04-04] VITALS (15 sets, daily range): BP systolic 102–139; BP diastolic 48–99; PULSE 78–101; RESP 14–18; TEMP 36.2–37.4; O2SAT 89–97; BMI 29.8
[2025-04-04 05:20] LABS: Hematocrit 35.4 % (37-47); Hemoglobin 11.3 g/dL (12.0-15.0); Immature Granulocytes Count 0.060 X10^3/uL (0.0-0.0); Mean Corp Hgb Conc 31.9 g/dL (32-36); Mean Corpuscular Volume 91.5 fL (81-99); Mean Platelet Vol. 10.2 fl (6.2-12.0); NRBC Flagged by Analyzer 0 % (0-5); POSITIVE MORPHOLOGY YES; Platelet Count 211 K/mm3 (150-450); RBC Distribution Width CV 21.3 % (11.6-14.6); RBC Distribution Width SD 70.1 fl (35.1-43.9); Red Blood Count 3.87 M/mm3 (4.2-5.4); White Blood Count 9.5 K/mm3 (4.4-11.0)
[2025-04-04 05:26] LABS: Differential Indicated SCAN CRITERIA MET
[2025-04-04 05:50] LABS: Anion Gap 13 (5-15); BUN 18 mg/dL (4-19); BUN/Creat Ratio 13.5 RATIO (10-20); Calcium,Total 8.9 mg/dL (7.6-11.0); Carbon Dioxide 20.0 mmol/L (21.0-32.0); Chloride 103 mmol/L (98-108); Estimated Creatinine Clearance 35.43 ml/min (50-250); Glucose 118 mg/dL (70-99); Potassium 4.5 mmol/L (3.3-5.1)
[2025-04-04 06:39] LABS: Anisocytosis RARE
--- NOTE | 2025-04-04 07:43 | PCM.PN.HOSP ---
Reason for Visit Chief Complaint: Left hip pain after fall Subjective Subjective Having pain with movement. Objective Data Objective Data Vital Signs: Vital Signs Temp Pulse Resp BP Pulse Ox O2 Del Method O2 Flow Rate 36.6 C 81 16 104/53 L 94 Nasal Cannula 2 04/04/25 02:14 04/04/25 02:14 04/04/25 02:14 04/04/25 02:14 04/04/25 02:14 04/04/25 02:14 04/04/25 02:14 Oxygen Flow Rate (L/min) 2 Oxygen Delivery Method Nasal Cannula Weight: 89.3 kg Body Mass Index (BMI) 29.8 Intake & Output: Intake and Output for Last 24 Hours 04/02/25 04/03/25 04/04/25 23:59 23:59 23:59 Intake Total 1000 / 1000 Output Total 2000 / 4000 2550 / 2550 Balance -1000 / -3000 -2550 / -2550 Lab / Micro Data 04/04/25 04:40 04/04/25 04:40 Labs: Laboratory Results - last 24 hr 04/03/25 14:35: WBC 17.4 H, RBC 4.08 L, Hgb 11.8 L, Hct 37.3, MCV 91.4, MCH 28.9, MCHC 31.6 L, RDW Std Deviation 70.0 H, RDW Coeff of Jose Alberto 21.3 H, Plt Count 236, MPV 9.6, Immature Gran % (Auto) 0.800, Neut % (Auto) 86.5 H, Lymph % (Auto) 4.3 L, [place] % (Auto) 8.1, Eos % (Auto) 0.1, Baso % (Auto) 0.2, Absolute Neuts (auto) 15.0 H, Absolute Lymphs (auto) 0.75 L, Nucleated RBC % 0, Anisocytosis 1+, PT 24.1 H, INR 2.1, APTT 40.9 H, Sodium 135, Potassium 4.4, Chloride 101, Carbon Dioxide 22.0, Anion Gap 12, BUN 18, Creatinine 1.34 H, Estim Creat Clear Calc 36.41 L, Est GFR (MDRD) Non-Af 39 L, BUN/Creatinine Ratio 13.5, Glucose 181 H, Calcium 9.2, NT pro BNP II 1850 H 04/03/25 21:43: POC Glucose 174 H 04/04/25 04:40: WBC 9.5, RBC 3.87 L, Hgb 11.3 L, Hct 35.4 L, MCV 91.5, MCH 29.2, MCHC 31.9 L, RDW Std Deviation 70.1 H, RDW Coeff of Jose Alberto 21.3 H, Plt Count 211, MPV 10.2, Immature Gran % (Auto) 0.600, Neut % (Auto) 76.2 H, Lymph % (Auto) 11.5 L, [place] % (Auto) 9.4, Eos % (Auto) 2.1, Baso % (Auto) 0.2, Absolute Neuts (auto) 7.2, Absolute Lymphs (auto) 1.09, Nucleated RBC % 0, Anisocytosis RARE, Sodium 136, Potassium 4.5, Chloride 103, Carbon Dioxide 20.0 L, Anion Gap 13, BUN 18, Creatinine 1.34 H, Estim Creat Clear Calc 35.43 L, Est GFR (MDRD) Non-Af 39 L, BUN/Creatinine Ratio 13.5, Glucose 118 H, Calcium 8.9, Blood Type O POSITIVE, Antibody Screen NEGATIVE 04/04/25 06:14: POC Glucose 123 H Radiography Diagnostic Testing: Radiology Impression Chest X-Ray 04/03/25 14:09 IMPRESSION: Left thoracic transvenous pacemaker with atrial and ventricular leads, stable in position. A prominently calcified aorta is noted. Mild cardiomegaly is seen. Increased interstitial markings are seen, concerning for (but not diagnostic of) mild interstitial pulmonary edema. No focal infiltrate is noted. No pleural effusion or pneumothorax is seen. No acute osseous change is seen. Reading Location: -[id number] Femur X-Ray 04/03/25 14:09 IMPRESSION: Nondisplaced impacted fracture of the subcapital region of the proximal left femur. Soft tissue swelling. Reading Location: [facility]-1 Pelvis X-Ray 04/03/25 14:09 IMPRESSION: Residual contrast material is seen within at least 2 sigmoid diverticula. Significant degenerative changes are seen of the visualized lower lumbar spine. Mild sacroiliac joint degenerative changes are noted. Deformity of the left femoral neck is seen, concerning for possible basicervical mildly impacted fracture. Additional imaging of the left hip may be performed, at this time. Reading Location: -[id number] Brain CT 04/03/25 15:00 IMPRESSION: CHRONIC CHANGES. NO ACUTE FINDINGS. Reading Location: [facility]-[address] 04/03/25 15:00 IMPRESSION: DEGENERATIVE CHANGES OF THE CERVICAL SPINE. NO EVIDENCE OF SIGNIFICANT OSSEOUS CENTRAL CANAL OR NEURAL FORAMINAL STENOSIS. Reading Location: [facility]-1 Physical Exam Const alert and no apparent distress HEENT head/scalp atraumatic and moist oral mucous membranes Resp normal respiratory effort, no retractions, no use of accessory muscles and clear to auscultation bilaterally Cardio regular rate, regular rhythm, S1 normal heart sound and S2 normal heart sound GI normal to inspection, nondistended, normoactive bowel sounds, soft to palpation and non-tender Neuro Sensorium / Orientation: awake and alert Assessment & Plan Assessment/Plan (1) Closed left hip fracture: PLAN: Plan Left hip fracture Imaging: Femur x-ray with nondisplaced impacted fracture of subcapital region of proximal left femur Ortho consult Pain control and scheduled bowel regimen: Will continue patient's home oxycodone 3 times daily as scheduled as reportedly she does take it regularly Patient's last dose of Xarelto was the evening of 04/02, unsure when surgery will take place, will make patient n.p.o. at midnight until this information is obtained to verify no delays PT/OT Case management and social work consults for DC planning Leukocytosis: resolved. likley reactive/demargination given fxr. no additional work up at this time. Chronic medical conditions: HFrEF: compensated. Last echo 03/26/2024 with EF of 45 to 50% unable to assess diastolic dysfunction with apex akinetic History of A-fib/flutter/sick sinus syndrome with pacemaker placement-Hold home Xarelto-Metoprolol with holding parameters Type 2 diabetes mellitus-Glucose checks and sliding scale insulin-Hold home oral hypoglycemics hypothyroidism-Continue Synthroid Depression/anxiety-Continue home medications Hypertension- Continue metoprolol with holding parameters, hold other home antihypertensives to allow for pain control and patient have surgery Hx of CAD-w/ previous stenting- Holding Xarelto, continue statin, beta-rosaura as tolerated GERD-Continue PPI DVT ppx: SCDs Charges/Coding Visit Charges Inpatient E&M: 27259 Subs Hosp L2
[2025-04-04] MEDS: Metoprolol(XL)Succ 50 MG Tablet PO (07:55)
--- NOTE | 2025-04-04 10:35 | CASEMGMT ---
NIYA OJEDA Assessment: Face to Face with pt for initial transition planning/care coordination assessment. NIYA OJEDA introduced self and role at [facility], pt voices understanding and consents to assessment. Pt is A&O x3 and answers all questions appropriately at this time although corrected at times by dtr. Pt dtr and present in room. Pt agreeable to discussion regarding dc planning with them present. Care providers, pharmacy, and demographics verified/updated. Admitting Dx: L hip fx Strata Score: 3 PCP:[facility] Specialists:Ivett, cardio; Olivia, heme; Devin, pain mgmt Preferred Pharmacy: [facility] Insurance: [employer] Prescription Benefit: yes LNOK: Hardik Young, ; Nitin Young, dtr Living Arrangements: Pt lives with and dtr in a two story home with FFSU and two steps to enter with a rail. Pt reports prior to this fall, she was indep in ADL/IADLs. She states family assist with most IADLs. Pt denies concerns at home. Transportation: Pt chooses not to drive and family assists with transportation. DME:BSC, lift chair, toilet riser, cane, shower chair, walker, BGM but pt doesn't test HHC/SNF: Pt has had [facility] in the past and [facility] to [facility]. Discussed with pt that therapy will work with her post surgery and make recommendations for level of therapy needed. NIYA OJEDA will follow up with pt tomorrow after therapy. Pt and family state they are aware that pt will likely need SNF and they would want [facility]. Pt states no further concerns/needs. CM to follow. Advised pt to ask CM if any further questions/concerns/needs arise, voices understanding. Pt Goal: Home but open to SNF if recommended Plan: TBD pending surgery and therapy anshu Velasquez RN, CM
[2025-04-04] MEDS: Lactated Ringers 1,000 ML 15 ML IV (11:56)
--- NOTE | 2025-04-04 12:21 | PRE.ANES_ITS ---
ASA Classification* ASA Classification ASA Classification: 3 Assessment & Plan Anesthesia* Anesthesia Assessment Anesthesia Assessment: Discussed sedation and/or anesthesia options, risks, benefits, and alternatives with patient/parents/legal guardian/POA. Questions invited. The patient/parents/legal guardian/POA seems to understand and agrees to proceed with anesthesia plan. Reviewed the physical assessment, medical history, allergy history and patient home medications list prior to surgery/procedure/anesthetic and documented any changes. Performed airway and anesthesia risk assessments. Anesthesia Type Anesthesia Type: General History Source History Obtained from:: Patient and Chart Anesthesia Focused Assessment* Temperature: 97.8 F Pulse Rate: 80 Blood Pressure: 129/93 Respiratory Rate: 18 Pulse Ox: 89 Oxygen Delivery Method: Room Air Oxygen Flow Rate (L/min): 3 Airway Assessment Mouth opens: >3 cm Mallampati Score: III Teeth Condition: Dentures (Upper dentures will come out.) and Missing (Missing several teeth on the bottom. The rest are tight.) Neck Range of motion (ROM): Limited ROM (Severe Restriction) Labs Anesthesia Preop lab: CBC WBC, (4.4-11.0) 9.5 K/mm3 Today, 04:40 RBC, (4.2-5.4) 3.87 M/mm3 L Today, 04:40 Hgb, (12.0-15.0) 11.3 g/dL L Today, 04:40 Hct, (37-47) 35.4 % L Today, 04:40 Plt Count, (150-450) 211 K/mm3 Today, 04:40 CHEMISTRY Potassium, (3.3-5.1) 4.5 mmol/L Today, 04:40 Sodium, (133-145) 136 mmol/L Today, 04:40 Magnesium, (1.5-2.2) 2.2 mg/dL 02/08/25, 19:58 Phosphorus, (2.7-4.5) 3.4 mg/dL 02/10/25, 06:24 BUN, (4-19) 18 mg/dL Today, 04:40 Creatinine, (0.70-1.20) 1.34 mg/dL H Today, 04:40 Glucose, (70-99) 118 mg/dL H Today, 04:40 POC Glucose, (74-106) 137 mg/dL H Today, 10:56 TSH, (0.300-4.200) 3.080 uIU/mL 02/08/25, 19:58 COAG PT, (11.7-14.9) 24.1 SECONDS H 04/03/25, 14:35 Pre-Assessment Diagnosis/Proposed Procedure Planned Operative Procedure(s): Left hemiarthroplasty hip, cemented Anesthesia History Anesthesia History - data entry representative: Anesthesia History - data entry representative Hx Hospitalization Yes 05/01/20 15:28 Any Problems With Anesthesia No 04/03/25 21:46 Cholinesterase deficiency No 04/03/25 21:46 You/Your Family Experience No 04/03/25 21:46 fever (hyperthermia) with Relationship Recent Exposure to Contagious No 04/03/25 21:46 Disease Does patient have nerve No 04/03/25 21:46 stimulator Patient instructed to have device shut off --Does patient have Pacemaker or ICD? When Was Last Pacemaker Check 02/06/25 04/03/25 21:46 QUESTION #4 FULL TEXT: You/Your Family Experience fever (hyperthermia) with Anesthesia Last Oral Intake Last Oral intake: Last Oral Intake NPO since 0000 Meds taken in AM with sips of water? 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 - data entry representative: PONV - data entry representative Female HX of Motion Sickness HX of N/V After Surgery Non-Smoker Duration of Surgery greater than 60 minutes Number of Risk Factors PONV Score Height & Weight Height & Weight: Anesthesia: Height & Weight Height 5 ft 8 in 04/03/25 17:31 Weight: 89.3 kg 04/04/25 06:00 Body Mass Index (BMI) 29.8 04/04/25 06:00 Respiratory Assessment Respiratory Assessment - data entry representative: Respiratory Tract Infection Hx - data entry representative Hx Respiratory Tract Infection No 04/03/25 21:46 STOP Sleep Apnea STOP Sleep Apnea - data entry representative: STOP Sleep Apnea - data entry representative Hx Hypertension Yes 04/03/25 17:31 Hx Sleep Apnea No 04/03/25 17:31 CPAP No 03/25/24 15:21 BIPAP No 03/25/24 15:21 Do you snore loudly (louder No 04/03/25 17:31 than talking or can be heard Do you often feel tired/ No 04/03/25 17:31 fatigued/ sleepy during daytime? Has anyone observed you stop No 04/03/25 17:31 breathing during sleep? STOP Results Negative 04/03/25 17:31 QUESTION #5 FULL TEXT : Do you snore loudly (louder than talking or can be heard through closed doors)? 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 Specify any problems Hx of Preganancy in last 3 No 04/03/25 17:31 Months Nurse Filling Out Transfusion KMESSENGE 04/03/25 17:31 & Questions: Date: 04/03/25 04/03/25 17:31 Time: 17:46 04/03/25 17:31 Patient unable to answer at this time (ie. confused, unrespo /Reproduction History /Reproductive History - data entry representative: /Reproductive Hx- data entry representative Hx Now No 04/03/25 21:46 Gestational Age (in weeks): EDC: Hx Hx Para Hx Section SAB No 04/03/25 21:46 Active Medications Active Medications: Current Medications Generic Name Dose Route Start Last Admin Trade Name Freq PRN Reason Stop Dose Admin Acetaminophen 1,000 mg 04/03/25 22:00 04/04/25 05:10 Acetaminophen 500 Mg Tablet PO Not Given Q8 RILEY Albuterol Sulfate 2.5 mg 04/03/25 17:47 Albuterol 2.5 Mg/3 Ml Vial.Neb. INHALATION Q2H PRN PRN SOB &/OR WHEEZING Amitriptyline HCl 50 mg 04/03/25 22:00 04/03/25 21:38 Amitriptyline 25 Mg Tablet PO 50 mg QHS RILEY Administration Atorvastatin Calcium 10 mg 04/03/25 22:00 04/03/25 21:38 Atorvastatin Calcium 10 Mg Tablet PO 10 mg QHS RILEY Administration Buspirone HCl 15 mg 04/03/25 22:00 04/04/25 05:10 Buspirone 15 Mg Tablet PO 15 mg TID RILEY Administration Sodium Chloride 77.9 ml/ 0 ml 04/04/25 12:30 Ropivacaine 200 mg/ OPERA.SITE 04/04/25 12:31 Epinephrine HCl 0.6 mg/ INTRAOP ONE Ketorolac Tromethamine 30 mg/ Morphine Sulfate 5 mg Ferrous Sulfate 325 mg 04/04/25 08:00 04/04/25 07:38 Ferrous Sulfate 325 Mg Tablet PO Not Given DAILYCM RILEY Furosemide 40 mg 04/04/25 10:00 04/04/25 07:38 Furosemide 40 Mg Tablet PO Not Given DAILY RILEY Protocol Glucagon 1 mg 04/03/25 17:47 Glucagon 1 Mg/Ml Syringe IM X1 PRN HYPOGLYCEMIA Protocol Cefazolin Sodium 2 gm/ Sodium 110 mls @ 200 mls/hr 04/04/25 12:30 Chloride IV 04/04/25 13:02 INTRAOP ONE Tranexamic Acid 1,000 mg/ 110 mls @ 660 mls/hr 04/04/25 12:30 Sodium Chloride IV 04/04/25 12:39 PREOP ONE Sodium Chloride 250 mls @ 15 mls/hr 04/03/25 17:32 IV .[id number] PRN Additional IVPB Infusion Sodium Chloride 250 mls @ 15 mls/hr 04/03/25 17:32 IV .[id number] PRN Saline Flush Dextrose 250 mls @ 0 mls/hr 04/03/25 17:47 Dextrose 10%-Water IV .Q0M PRN HYPOGLYCEMIA Protocol As Directed Lactated Ringer's 1,000 mls @ 15 mls/hr 04/04/25 11:45 04/04/25 11:56 IV 15 mls/hr .Q48H RILEY Administration Insulin Human Lispro 0 unit 04/03/25 22:00 04/04/25 10:53 Insulin Lispro 100 Unit/Ml Insuln.Pen SC Not Given ACHS [facility] Protocol Levothyroxine Sodium 100 mcg 04/04/25 06:00 04/04/25 05:10 Levothyroxine 100 Mcg Tablet PO 100 mcg DAILY@0600 RILEY Administration Melatonin 10 mg 04/03/25 17:47 Melatonin 10 Mg Tablet PO QHS PRN PRN INSOMNIA Metoprolol Succinate 50 mg 04/04/25 10:00 04/04/25 07:55 Metoprolol(Xl)Succ 50 Mg Tablet PO 50 mg DAILY RILEY Administration Protocol Morphine Sulfate 2 - 4 mg 04/03/25 17:47 04/04/25 11:00 Morphine 2 Mg/Ml Syringe IV 2 mg Q3H PRN PRN Administration Pain Score 6-10 Ondansetron HCl 4 mg 04/03/25 17:47 Ondansetron 4 Mg/2 Ml Vial IV Q8H PRN PRN NAUSEA/VOMITING Oxycodone HCl 5 mg 04/03/25 22:00 04/04/25 05:10 Oxycodone 5 Mg Tablet PO 5 mg TID RILEY Administration Pantoprazole Sodium 40 mg 04/04/25 10:00 04/04/25 07:38 Pantoprazole Sodium 40 Mg Tablet PO Not Given DAILY [facility] Potassium Chloride 40 meq 04/03/25 17:47 04/04/25 07:38 Potassium Chloride Oral Tablet 20 Meq PO Not Given DAILY RILEY Senna/Docusate Sodium 2 tablet 04/03/25 22:00 04/04/25 07:38 Senna/Docusate Sodium 1 Tablet PO Not Given BID [facility] Sodium Chloride 10 - 40 ml 04/03/25 17:32 04/03/25 19:45 0.9% Saline Lock 10 Ml Syringe IV 10 ml UD PRN Administration SALINE FLUSH PFSH Medical History Overweight (BMI 25.0-29.9) Coronary artery disease Iron deficiency anemia History of non-ST elevation myocardial infarction (NSTEMI) (2013) Longstanding persistent atrial fibrillation Essential (primary) hypertension Anxiety Hypothyroidism Hyperlipidemia Secondary pulmonary arterial hypertension Atherosclerosis of coronary artery of [place] without angina pectoris Paroxysmal atrial fibrillation Paroxysmal atrial flutter Sick sinus syndrome Home Medications ?Medication ?Instructions ?Recorded ?Last Taken ?Type buspirone 15 mg tablet 15 mg PO TID ANXIETY 3 04/04/25 History omeprazole 40 mg capsule,delayed 40 mg PO DAILY ACID R EFLUX 06/02/13 04/02/25 History release nitroglycerin 0.4 mg sublingual 0.4 mg sublingual Q5M PRN CHEST 04/21/15 Unknown History tablet PAIN amitriptyline 50 mg tablet 50 mg PO QHS DEPRESSION 03/0404/02/25 History empagliflozin 10 mg tablet 10 mg PO DAILY DIABETES 03/0404/03/25 History (Jardiance) ketotifen fumarate 0.025 % (0.035 1 drp ophthalmic (ey e) BID PRN 02/17/23 04/02/25 History %) eye drops ([place]) ITCHING/ALLERGIES levothyroxine 100 mcg tablet 100 mcg PO DAILY THYROID 12/14/23 04/04/25 History (Synthroid) furosemide 40 mg tablet (Lasix) 40 mg PO DAILY water p ill #60 tabs 12/17/23 04/03/25 Rx rivaroxaban 20 mg tablet (Xarelto) 20 mg PO QPM #90 ta bs 10/06/24 04/02/25 Rx losartan 100 mg tablet 100 mg PO DAILY blood pressu re #90 11/18/24 04/03/25 Rx tabs potassium chloride 20 mEq 40 meq (2 x 20 mEq) PO QDAY #90 11/21/24 04/02/25 Rx tablet,extended release(part/cryst) tabs metoprolol succinate 50 mg 50 mg PO DAILY heart/BP #90 tabs 11/23/24 04/04/25 Rx tablet,extended release 24 hr simvastatin 20 mg tablet 20 mg PO QHS CHOLESTEROL #9 0 tabs 12/22/24 04/02/25 Rx amlodipine 10 mg tablet 10 mg PO DAILY 02/08/2503/14 History ferrous sulfate 325 mg (65 mg 65 mg PO DAILY 02/08/25 04/03/25 History iron) tablet (FeroSul) oxycodone-acetaminophen 5 mg-325 1 tab PO TID PRN PRN pain 02/08/25 04/03/25 History mg tablet ascorbic acid (vitamin C) 500 mg 500 mg PO BID 5 04/03/25 History tablet (Vitamin C) Allergy/AdvReac Type Severity Reaction Status Date / Time poison fidelina extract (Poison Allergy Rash Verified 04/03/25 13:18 Fidelina Extract) Sulfa (Sulfonamide Allergy Hives Verified 04/03/25 13:18 Antibiotics) Family History Mother Cancer Father Cancer Brother CAD (coronary artery disease) Sister CAD (coronary artery disease) Surgical History S/P kyphoplasty History of tubal ligation History of appendectomy History of hysterectomy History of left heart catheterization (10/09/13) History of coronary artery stent placement (09/2010) Hx of atrioventricular node ablation (03/31/16) Presence of cardiac pacemaker (04/26/15) Social History household members: spouse Smoking Status: Former smoker how long ago did patient quit smokin's alcohol intake: never substance use type: does not use caffeine: Yes Type: coffee Number of servings: 3 Review of Systems (Anesthesia) ROS Narrative System reviewed and no additional complaints, except as documented.
[2025-04-04] MEDS: Cefazolin 1 GM/5 ML Vial 2 GM IV (12:55)
[2025-04-04] MEDS: Lidocaine 1% (5 ml sdv) 5 ML Vial 8 ML IV (13:00)
[2025-04-04] MEDS: TXA 2000mg in NS 100ml (Placed in Wound) OPERA.SITE (13:50)
[2025-04-04] MEDS: fentaNYL 100 MCG/2 ML Ampul IV (14:00)
--- NOTE | 2025-04-04 14:37 | PCM.OPRPT ---
Operative Report (Standard) Operative Information Date of Procedure: 04/04/25 Pre-Operative Diagnosis: Displaced left femoral neck fracture Post-Operative Diagnosis: Same Surgery/Procedure Performed: Left hip cemented hemiarthroplasty valve tester: Yes Stock Control Supervisor: Destiny Hilario Tasks completed by miller head assistant wet process: Closing and Implanting device Additional family law legal assistant?: No Type of Anesthesia: General RN Documented Start/Stop Times: Operation Date: 04/04/25 12:30 Case Time Into Pre-Op 04/04/25 11:38 Out of Pre-Op 04/04/25 12:54 Into Room 04/04/25 12:55 Anesthesia Start 04/04/25 12:56 Procedure Start 04/04/25 13:30 Procedure Start Time: 13:30 Procedure Stop Time: 14:39 Select all DRAINS/GRAFTS/IMPLANTS that apply: Prosthetic device Prosthetic device details: Harcourt cemented bipolar hemiarthroplasty Estimated Blood Loss: 300 Specimen collected: No Description of surgery: Indications for surgery : Patient is a (84) -year-old that fell yesterday fracturing the involved hip. Appropriate informed consent was obtained and signed. Appropriate medical workup was performed preoperatively and patient was deemed safe for surgery by the anesthesia department social human services assistants, LUIS FELIPE was utilized throughout the entire procedure. They were vital in helping with patient positioning, holding of retractors, exposing the tissues adequately for safe completion of the procedure including cutting of the bone, helping telecommunications consultant appropriate alignment and sizing of the components, implantation of the components, as well as wound closure, bandage application, and safe patient transfer. Without operating room surgical technologist, physician family law legal assistant, surgical time would have been significantly increased, and surgical outcome would have been less optimal. Operative findings: Patient had displaced comminuted femoral neck fracture. We used a Harcourt Accolade C stem size #5 cemented. Bipolar 49 mm femoral head with a +4 neck length. This reproduced there anatomy nicely. Clinically good leg lengths were noted. Good hip stability through range of motion with no undue pistoning. Standard wound closure in layers, followed by emily, followed by Mepilex dressing Details of procedure: Patient was taken to the operating room and transferred to the operating table. Given appropriate anesthetic agent by that department. Patient was then rolled into a lateral decubitus position with the involved painful hip up in the air. Appropriate timeouts had been performed. Hip had been appropriately marked with my initials. Padded anterior and posterior position was utilized. Axillary roll placed. JUAN DANIEL hose and SCDs on the nonoperative limb utilized throughout the procedure. Operative lower extremity was prepped padded and draped in the usual orthopedic sterile fashion for the procedure. I injected the pain relieving solution in the standard sterile technique of the soft tissues of the hip carefully. Incision was made curving over the tip of the greater trochanter posteriorly. Full thickness skin flaps are raised down on the fascia maricarmen. Fascia maricarmen was opened in length with our incision. Charnley self-retaining hip retractor was carefully placed by the surgeon. Leg was appropriately rotated by the family law legal assistant. Retractor was used to lift the abductors anteriorly to visualize the piriformis tendon and external rotators. Piriformis tendon and external rotators released off the greater trochanter with the Bovie. Tagging suture was placed in each of these separately. We then split the tissue superior to the piriformis tendon through capsule and onto the pelvis. Acetabular labrum was preserved. Retractors were carefully placed around the femoral neck. Displaced unstable femoral neck fracture identified. cutting guide was utilized to map out the proposed cut approximately 1 fingerbreadth above the lesser trochanter. This femoral neck cut was carried out with a saw. Fractured femoral head removed from the acetabulum and measured and inspected. Appropriate trial was utilized. A proximal femoral elevator utilized. We used a sharp awl entering down inside the bone of the proximal femur. Utilized the Mobile Armor cutting osteotome the proximal lateral greater trochanteric region. The fragment removed. Broaching was then done from the smallest broach, upto the appropriate size. Good stability was confirmed. We then trialed the construct with a standard neck length and appropriate sized femoral head. We were happy with the construct. Good stability to flexion, rotation. At this point trials removed. 2 full batches of antibiotic bone cement were mixed. 2 sponges were placed in the acetabulum we prepared the canal with brushing. Cement restrictor was placed down to the appropriate depth. It was thoroughly irrigated clean and dry. When the cement was as the appropriate texture, we pressurized cement down in the femoral canal. The appropriate size stem then hammered into the proximal femur and seated down to a similar position as the trial had. Excess bone cement removed. Stem was held still while cement fully hardened. Pain relieving solution was injected while this was occurring. The cement was fully hardened, sponges were removed from the acetabulum. We now again trialed and appropriate neck length decided upon. It was then opened. Now impacted the appropriate sized femoral head, neck construct onto the clean dried trunion. Was noted to be stable. Hip was inspected, and joint was reduced for a final time. Good hip stability and leg lengths noted. This was then irrigated with saline and cleaned. We irrigated with sterile Betadine. We also did a Tranexamic acid 2 g joint wash. Next the remainder of the pain relieving solution was injected carefully throughout the soft tissues of the hip joint. Closure was carried out with a combination of #1 Vicryl repairing the hip capsule as well as piriformis tendon and external rotators to bone, running #2 strata fix in the fascia maricarmen, followed by mid layer #1 Vicryl with #1 strata fix running. Next running 0 strata fix, followed by skin emily, Xeroform, Mepilex dressing. We placed JUAN DANIEL hose and SCD on the operative leg. Patient awoken from the anesthetic and transferred back to room bed in recovery room in satisfactory condition. Patient will be admitted to the hospital. Hospitalist service will continue to manage the medical issues. We will resume Xarelto tomorrow. Weightbearing as tolerated. Follow left hip dislocation precautions. Hopeful discharge to home or ECF or home in 1-2 days. This note was generated with [employer] dictation software. It may contain incorrect words, spelling, and punctuation that were not noted in checking the note before signing. Surgical Findings: Left hip fracture Complications Complications: No Admit VTE Documentation VTE Present on Admission: No VTE Mechan Device Prophylaxis: SCD's and Thigh High JUAN DANIEL Hose VTE Pharm Prophylaxis ordered?: Yes
[2025-04-04] MEDS: JPS (Morphine 10mg/ml) OPERA.SITE (14:38)
--- NOTE | 2025-04-04 14:44 | CON.PCM.OR_ITS ---
HPI Consult Data Date of Consult: 04/04/25 HPI Narrative HPI Narrative: ANTONIO GUPTA, is a 84 F who presents after falling at home yesterday April 03, 2025. She was going up stairs. At the top she caught her foot falling onto the floor. She landed on her left side. She did not fall down the stairs. She was not able to walk. She was brought to the hospital. She was diagnosed with a displaced femoral neck fracture. Admitted to the medical service. Orthopedics appropriately consulted. She denies dizziness head injury loss of consciousness. ON LICENSE OF [facility] Medical History Overweight (BMI 25.0-29.9) Coronary artery disease Iron deficiency anemia History of non-ST elevation myocardial infarction (NSTEMI) (2013) Longstanding persistent atrial fibrillation Essential (primary) hypertension Anxiety Hypothyroidism Hyperlipidemia Secondary pulmonary arterial hypertension Atherosclerosis of coronary artery of [place] heart without angina pectoris Paroxysmal atrial fibrillation Paroxysmal atrial flutter Sick sinus syndrome Home Medications ?Medication ?Instructions ?Recorded ?Last Taken ?Type buspirone 15 mg tablet 15 mg PO TID ANXIETY 3 04/04/25 History omeprazole 40 mg capsule,delayed 40 mg PO DAILY ACID R EFLUX 06/02/13 04/02/25 History release nitroglycerin 0.4 mg sublingual 0.4 mg sublingual Q5M PRN CHEST 04/21/15 Unknown History tablet PAIN amitriptyline 50 mg tablet 50 mg PO QHS DEPRESSION 03/0404/02/25 History empagliflozin 10 mg tablet 10 mg PO DAILY DIABETES 03/0404/03/25 History (Jardiance) ketotifen fumarate 0.025 % (0.035 1 drp ophthalmic (ey e) BID PRN 02/17/23 04/02/25 History %) eye drops ([place]) ITCHING/ALLERGIES levothyroxine 100 mcg tablet 100 mcg PO DAILY THYROID 12/14/23 04/04/25 History (Synthroid) furosemide 40 mg tablet (Lasix) 40 mg PO DAILY water p ill #60 tabs 12/17/23 04/03/25 Rx rivaroxaban 20 mg tablet (Xarelto) 20 mg PO QPM #90 ta bs 10/06/24 04/02/25 Rx losartan 100 mg tablet 100 mg PO DAILY blood pressu re #90 11/18/24 04/03/25 Rx tabs potassium chloride 20 mEq 40 meq (2 x 20 mEq) PO QDAY #90 11/21/24 04/02/25 Rx tablet,extended release(part/cryst) tabs metoprolol succinate 50 mg 50 mg PO DAILY heart/BP #90 tabs 11/23/24 04/04/25 Rx tablet,extended release 24 hr simvastatin 20 mg tablet 20 mg PO QHS CHOLESTEROL #9 0 tabs 12/22/24 04/02/25 Rx amlodipine 10 mg tablet 10 mg PO DAILY 02/08/2503/14 History ferrous sulfate 325 mg (65 mg 65 mg PO DAILY 02/08/25 04/03/25 History iron) tablet (FeroSul) oxycodone-acetaminophen 5 mg-325 1 tab PO TID PRN PRN pain 02/08/25 04/03/25 History mg tablet ascorbic acid (vitamin C) 500 mg 500 mg PO BID 5 04/03/25 History tablet (Vitamin C) Allergy/AdvReac Type Severity Reaction Status Date / Time poison fany extract (Poison Allergy Rash Verified 04/03/25 13:18 Fany Extract) Sulfa (Sulfonamide Allergy Hives Verified 04/03/25 13:18 Antibiotics) Family History Mother Cancer Father Cancer Brother CAD (coronary artery disease) Sister CAD (coronary artery disease) Surgical History S/P kyphoplasty History of tubal ligation History of appendectomy History of hysterectomy History of left heart catheterization (10/09/13) History of coronary artery stent placement (09/2010) Hx of atrioventricular node ablation (03/31/16) Presence of cardiac pacemaker (04/26/15) Social History household members: spouse Smoking Status: Former smoker how long ago did patient quit smokin's alcohol intake: never substance use type: does not use caffeine: Yes Type: coffee Number of servings: 3 ROS ROS Narrative Patient denies any recent changes to eyes ears nose or throat heart or lungs bowel or bladder. Currently having significant left hip pain with moving from fracture. Vital Signs Vital Signs Vital Signs: 04/03/25 15:09 04/03/25 15:13 04/03/25 16:30 Temperature 98 F Temperature Source Pulse Rate 83 83 Respiratory Rate 20 H 20 H Respiratory Effort Respiratory Depth Respiratory Pattern Blood Pressure 96/83 H Blood Pressure Mean 87 Blood Pressure Source Blood Pressure Position Blood Pressure Location Pulse Ox 81 93 93 Oxygen Delivery Method Room Air Nasal Cannula Oxygen Flow Rate (L/min) 2 04/03/25 16:54 04/03/25 17:48 04/03/25 17:56 Temperature 98.1 F Temperature Source Oral Pulse Rate 101 H Respiratory Rate 18 Respiratory Effort Short of Breath Respiratory Depth Respiratory Pattern Blood Pressure 127/52 H Blood Pressure Mean 77 Blood Pressure Source Monitor Blood Pressure Position Semi-Fowlers Blood Pressure Location Left Arm Pulse Ox 92 93 Oxygen Delivery Method Nasal Cannula Nasal Cannula Nasal Cannula Oxygen Flow Rate (L/min) 5 7 7 04/03/25 19:51 04/03/25 20:00 04/03/25 20:00 Temperature 98.5 F 98 F Temperature Source Temporal Temporal Pulse Rate 79 79 Respiratory Rate 16 16 Respiratory Effort Normal Non-Labored Respiratory Depth Normal Respiratory Pattern Normal Blood Pressure 121/57 H 121/57 H Blood Pressure Mean 78 78 Blood Pressure Source Monitor Monitor Blood Pressure Position Supine Semi-Fowlers Blood Pressure Location Left Arm Right Arm Pulse Ox 95 95 Oxygen Delivery Method Nasal Cannula Nasal Cannula Nasal Cannula Oxygen Flow Rate (L/min) 2 2 2 04/03/25 20:10 04/04/25 02:14 04/04/25 07:47 Temperature 97.8 F 97.8 F Temperature Source Temporal Temporal Pulse Rate 81 80 Respiratory Rate 16 18 Respiratory Effort Respiratory Depth Respiratory Pattern Blood Pressure 104/53 L 139/65 H Blood Pressure Mean 70 89 Blood Pressure Source Monitor Monitor Blood Pressure Position Semi-Fowlers Supine Blood Pressure Location Left Arm Left Arm Pulse Ox 95 94 91 Oxygen Delivery Method Nasal Cannula Nasal Cannula Nasal Cannula Oxygen Flow Rate (L/min) 2 2 3 04/04/25 07:52 04/04/25 07:55 04/04/25 10:03 Temperature Temperature Source Pulse Rate 80 Respiratory Rate Respiratory Effort Normal Non-Labored Respiratory Depth Normal Respiratory Pattern Normal Blood Pressure Blood Pressure Mean Blood Pressure Source Blood Pressure Position Blood Pressure Location Pulse Ox 95 Oxygen Delivery Method Nasal Cannula Nasal Cannula Oxygen Flow Rate (L/min) 3 2 04/04/25 12:02 04/04/25 12:35 Temperature 97.8 F 97.8 F Temperature Source Temporal Pulse Rate 80 80 Respiratory Rate 18 18 Respiratory Effort Respiratory Depth Respiratory Pattern Blood Pressure 129/93 H 129/93 H Blood Pressure Mean 105 Blood Pressure Source Monitor Blood Pressure Position Right Lateral Blood Pressure Location Left Arm Pulse Ox 89 89 Oxygen Delivery Method Nasal Cannula Room Air Oxygen Flow Rate (L/min) 3 3 Weight Weight: 89.3 kg Body Mass Index (BMI) 29.8 Physical Exam Narrative Left hip has shortening and external rotation. Left hip has pain on palpation. No pain at the right hip. No pain with moving the right hip. SCDs are on. She had no calf pain. She can gently plantarflex and dorsiflex toes and ankles. Distal pulses intact. Skin intact about the left hip. Lab / Micro Data Attestation: I reviewed the patient's lab results. 04/04/25 04:40 04/04/25 04:40 Labs: Laboratory Results - last 24 hr 04/03/25 14:35: WBC 17.4 H, RBC 4.08 L, Hgb 11.8 L, Hct 37.3, MCV 91.4, MCH 28.9, MCHC 31.6 L, RDW Std Deviation 70.0 H, RDW Coeff of Jose Alberto 21.3 H, Plt Count 236, MPV 9.6, Immature Gran % (Auto) 0.800, Neut % (Auto) 86.5 H, Lymph % (Auto) 4.3 L, Sunflower % (Auto) 8.1, Eos % (Auto) 0.1, Baso % (Auto) 0.2, Absolute Neuts (auto) 15.0 H, Absolute Lymphs (auto) 0.75 L, Nucleated RBC % 0, Anisocytosis 1+, PT 24.1 H, INR 2.1, APTT 40.9 H, Sodium 135, Potassium 4.4, Chloride 101, Carbon Dioxide 22.0, Anion Gap 12, BUN 18, Creatinine 1.34 H, Estim Creat Clear Calc 36.41 L, Est GFR (MDRD) Non-Af 39 L, BUN/Creatinine Ratio 13.5, Glucose 181 H, Calcium 9.2, NT pro BNP II 1850 H 04/03/25 21:43: POC Glucose 174 H 04/04/25 04:40: WBC 9.5, RBC 3.87 L, Hgb 11.3 L, Hct 35.4 L, MCV 91.5, MCH 29.2, MCHC 31.9 L, RDW Std Deviation 70.1 H, RDW Coeff of Jose Alberto 21.3 H, Plt Count 211, MPV 10.2, Immature Gran % (Auto) 0.600, Neut % (Auto) 76.2 H, Lymph % (Auto) 11.5 L, Sunflower % (Auto) 9.4, Eos % (Auto) 2.1, Baso % (Auto) 0.2, Absolute Neuts (auto) 7.2, Absolute Lymphs (auto) 1.09, Nucleated RBC % 0, Anisocytosis RARE, Sodium 136, Potassium 4.5, Chloride 103, Carbon Dioxide 20.0 L, Anion Gap 13, BUN 18, Creatinine 1.34 H, Estim Creat Clear Calc 35.43 L, Est GFR (MDRD) Non-Af 39 L, BUN/Creatinine Ratio 13.5, Glucose 118 H, Calcium 8.9, Blood Type O POSITIVE, Antibody Screen NEGATIVE 04/04/25 06:14: POC Glucose 123 H 04/04/25 10:56: POC Glucose 137 H Imaging Radiology Impression Chest X-Ray 04/03/25 14:09 IMPRESSION: Left thoracic transvenous pacemaker with atrial and ventricular leads, stable in position. A prominently calcified aorta is noted. Mild cardiomegaly is seen. Increased interstitial markings are seen, concerning for (but not diagnostic of) mild interstitial pulmonary edema. No focal infiltrate is noted. No pleural effusion or pneumothorax is seen. No acute osseous change is seen. Reading Location: [id number] Femur X-Ray 04/03/25 14:09 IMPRESSION: Nondisplaced impacted fracture of the subcapital region of the proximal left femur. Soft tissue swelling. Reading Location: [facility] Pelvis X-Ray 04/03/25 14:09 IMPRESSION: Residual contrast material is seen within at least 2 sigmoid diverticula. Significant degenerative changes are seen of the visualized lower lumbar spine. Mild sacroiliac joint degenerative changes are noted. Deformity of the left femoral neck is seen, concerning for possible basicervical mildly impacted fracture. Additional imaging of the left hip may be performed, at this time. Reading Location: -[id number] Brain CT 04/03/25 15:00 IMPRESSION: CHRONIC CHANGES. NO ACUTE FINDINGS. Reading Location: [facility] 04/03/25 15:00 IMPRESSION: DEGENERATIVE CHANGES OF THE CERVICAL SPINE. NO EVIDENCE OF SIGNIFICANT OSSEOUS CENTRAL CANAL OR NEURAL FORAMINAL STENOSIS. Reading Location: [facility] Assessment & Plan Assessment/Plan (1) Closed left hip fracture: QUALIFIERS: Encounter type: initial encounter Qualified Code(s): S72.002A - Fracture of unspecified part of neck of left femur, initial encounter for closed fracture PLAN: Her diagnosis and treatment options regarding her left displaced femoral neck fracture discussed with her and her family at length. Surgical and nonsurgical options discussed. I recommended cemented hip arthroplasty. They did wish to proceed. Risk of surgery including but not limited to from operative or postoperative complications. Risk of anesthetic complications such as heart attacks, strokes, seizures, or . Risk of infections. Risk of damage to nerves arteries tendons. Risk of inadvertent fractures or dislocations. Risk of bone or wound healing complications. Possibility of nonunion malunion pain stiffness weakness. Possible need for further surgery such as hardware removal. Risk of DVT PE and other potential complications could lead to or disability explained. No guarantees were stated or implied. All of their questions were answered. Appropriate informed consent was obtained and signed for surgical intervention. Patient has been evaluated by the medical service and anesthesia service. She has been deemed safe for surgery. She did have a dose of Xarelto seemingly yesterday morning. I explained the risk of proceeding versus the risk of postponing surgery. We decided to proceed. Patient will be on Ancef before and after surgery. We will resume her Xarelto tomorrow. She will continue on the medical service.
--- NOTE | 2025-04-04 15:20 | RAD_ITS ---
PROCEDURE: HIP MIN 2 VIEWS (PORTABLE) 04/04/2025 REASON FOR EXAM: POST OP TECHNIQUE: Procedure Code: RADH_P Modality: DX Procedure: HIP MIN 2 VIEWS (PORTABLE) Laterality: Left COMPARISON: None. FINDINGS: Bones: No acute bony abnormalities. No periprosthetic loosening. Joints: Status post total left hip replacement. Soft tissues: Soft tissue swelling. RAD/Hip Min 2 Views (Portable) IMPRESSION: Status post total left hip replacement. Normal alignment without loosening. Reading Location: [id number]
--- NOTE | 2025-04-04 15:20 | PCM.POST.ANE ---
Anesthesia: Postop Eval I Current Vital Signs Temperature: 99.3 F Pulse Rate: 80 Blood Pressure: 111/58 Respiratory Rate: 16 Pulse Ox: 92 Assessment Airway patent: Yes Spontaneous unlabored respirations: Yes nausea: No Vomiting: No Anesthesia Complication: No Fluid Hydration Crystalloid volume administer (ml): 1,300 Total IV fluid infused: 1,300 Progress Note Anesthesia document: Postop Eval 1 completed: Yes
--- NOTE | 2025-04-04 17:53 | POSTOPAN2_ITS ---
Anesthesia Postop Eval I Sum Postop Eval Completion status Anesthesia document: Postop Eval 1 completed: Yes Anesthesia Postop Eval I Summary Anesthesia Postop Eval I Summary: Anesthesia Postop Eval I: Assessment Summary Airway patent Yes 04/04/25 15:20 DUST [email or web address] Spontaneous unlabored Yes 04/04/25 15:20 DUST [email or web address] [email or web address] respirations Mental status nausea No 04/04/25 15:20 DUST [email or web address] [email or web address] Vomiting No 04/04/25 15:20 DUST [email or web address] [email or web address] Anesthesia Postop Eval I: Fluid Summary Crystalloid volume administer 1,300 04/04/25 15:20 DUST CONTROL [email or web address] (ml) Colloids volume administered ( ml) Blood Product volume administered (ml) Total IV fluid infused 1,300 04/04/25 15:20 DUST [email or web address] Anesthesia Postop Eval I: Summary Notes Anesthesia Complication No 04/04/25 15:20 DUST [email or web address] Anesthesia Complication Comment: Post-operative progress note Anesthesia: Postop Eval II Evaluation Mental status: Awake and Calm Pain Level: 2 nausea: No Vomiting: No Complications Anesthesia Complication: No
--- NOTE | 2025-04-04 17:53 | PCM.POSTANE2 ---
Anesthesia Postop Eval I Sum Postop Eval Completion status Anesthesia document: Postop Eval 1 completed: Yes Anesthesia Postop Eval I Summary Anesthesia Postop Eval I Summary: Anesthesia Postop Eval I: Assessment Summary Airway patent Yes 04/04/25 15:20 [email or web address] Spontaneous unlabored Yes 04/04/25 15:20 [email or web address] [email or web address] respirations Mental status nausea No 04/04/25 15:20 [email or web address] [email or web address] Vomiting No 04/04/25 15:20 GRAIN [email or web address] Anesthesia Postop Eval I: Fluid Summary Crystalloid volume administer 1,300 04/04/25 15:20 [email or web address] (ml) Colloids volume administered ( ml) Blood Product volume administered (ml) Total IV fluid infused 1,300 04/04/25 15:20 [email or web address] [email or web address] Anesthesia Postop Eval I: Summary Notes Anesthesia Complication No 04/04/25 15:20 [email or web address] [email or web address] Anesthesia Complication Comment: Post-operative progress note Anesthesia: Postop Eval II Evaluation Mental status: Awake and Calm Pain Level: 2 nausea: No Vomiting: No Complications Anesthesia Complication: No
[2025-04-04] MEDS: Cefazolin 1 GM/50 ML BAG IV (20:18)
[2025-04-04] MEDS: Senna/Docusate Sodium 1 Tablet 2 TABLET PO (21:31)
[2025-04-05 00:02] VITALS: BP 118/68; PULSE 76; RESP 16; TEMP 36.6; O2SAT 95
[2025-04-05 04:02] VITALS: BP 134/82; PULSE 81; RESP 18; TEMP 36.7; O2SAT 95
[2025-04-05 05:21] VITALS: BMI 29.9
[2025-04-05] MEDS: Cefazolin 1 GM/50 ML BAG IV (05:59)
[2025-04-05 06:53] LABS: Hematocrit 31.5 % (37-47); Hemoglobin 10.2 g/dL (12.0-15.0); Immature Granulocytes Count 0.060 X10^3/uL (0.0-0.0); Mean Corp Hgb Conc 32.4 g/dL (32-36); Mean Corpuscular Volume 92.4 fL (81-99); Mean Platelet Vol. 10.3 fl (6.2-12.0); NRBC Flagged by Analyzer 0 % (0-5); POSITIVE MORPHOLOGY YES; Platelet Count 201 K/mm3 (150-450); RBC Distribution Width CV 20.4 % (11.6-14.6); RBC Distribution Width SD 67.8 fl (35.1-43.9); Red Blood Count 3.41 M/mm3 (4.2-5.4); White Blood Count 14.7 K/mm3 (4.4-11.0)
[2025-04-05 07:04] LABS: Differential Indicated SCAN CRITERIA MET
--- NOTE | 2025-04-05 07:19 | PN.HOSP_ITS ---
Reason for Visit Chief Complaint: Left hip pain after fall Subjective Subjective Feeling better. Pain in left hip much better. Objective Data Objective Data Vital Signs: Vital Signs Temp Pulse Resp BP Pulse Ox O2 Del Method O2 Flow Rate 36.7 C 81 18 134/82 H 95 Nasal Cannula 2 04/05/25 04:02 04/05/25 04:02 04/05/25 04:02 04/05/25 04:02 04/05/25 04:02 04/05/25 04:02 04/05/25 04:02 Oxygen Flow Rate (L/min) 2 Oxygen Delivery Method Nasal Cannula Weight: 89.6 kg Body Mass Index (BMI) 29.9 Intake & Output: Intake and Output for Last 24 Hours 04/03/25 04/04/25 04/05/25 23:59 23:59 23:59 Intake Total 1000 / 1000 1270 / 1270 50 / 50 Output Total 2000 / 4000 3600 / 3600 400 / 400 Balance -1000 / -3000 -2330 / -2330 -350 / -350 Lab / Micro Data 04/05/25 06:27 04/05/25 06:27 Labs: Laboratory Results - last 24 hr 04/04/25 10:56: POC Glucose 137 H 04/04/25 16:25: POC Glucose 171 H 04/04/25 21:27: POC Glucose 213 H 04/05/25 05:56: POC Glucose 157 H 04/05/25 06:27: WBC 14.7 H, RBC 3.41 L, Hgb 10.2 L, Hct 31.5 L, MCV 92.4, MCH 29.9, MCHC 32.4, RDW Std Deviation 67.8 H, RDW Coeff of Jose Alberto 20.4 H, Plt Count 201, MPV 10.3, Immature Gran % (Auto) 0.400, Neut % (Auto) 88.4 H, Lymph % (Auto) 5.5 L, [place]ner % (Auto) 5.6, Eos % (Auto) 0.0, Baso % (Auto) 0.1, Absolute Neuts (auto) 13.0 H, Absolute Lymphs (auto) 0.81 L, Nucleated RBC % 0 Radiography Diagnostic Testing: Radiology Impression Hip X-Ray 04/04/25 15:20 IMPRESSION: Status post total left hip replacement. Normal alignment without loosening. Reading Location: [facility] Physical Exam Const alert Constitutional Narrative: up in chair. afebrile. HEENT head/scalp atraumatic and moist oral mucous membranes Resp normal respiratory effort and no retractions Neuro Sensorium / Orientation: awake and alert Psych affect normal Assessment & Plan Assessment/Plan (1) Closed left hip fracture: QUALIFIERS: Encounter type: initial encounter Qualified Code(s): S72.002A - Fracture of unspecified part of neck of left femur, initial encounter for closed fracture PLAN: Plan Left hip fracture * Imaging: Femur x-ray with nondisplaced impacted fracture of subcapital region of proximal left femur * 04/04: performed left hip cemented arthroplasty * Pain control and scheduled bowel regimen: Will continue patient's home oxycodone 3 times daily as scheduled as reportedly she does take it regularly * Patient's last dose of Xarelto was the evening of 04/02, unsure when surgery will take place, will make patient n.p.o. at midnight until this information is obtained to verify no delays * PT/OT * Case management and social work consults for DC planning Leukocytosis: * improved. likely reactive/demargination given fxr. * no additional work up at this time. Chronic medical conditions: * HFrEF: compensated. Last echo 03/26/2024 with EF of 45 to 50% unable to assess diastolic dysfunction with apex akinetic * History of A-fib/flutter/sick sinus syndrome with pacemaker placement * Type 2 diabetes mellitus-Glucose checks and sliding scale insulin-Hold home oral hypoglycemics * hypothyroidism-Continue Synthroid * Depression/anxiety-Continue home medications * Hypertension- Continue metoprolol with holding parameters, hold other home antihypertensives to allow for pain control and patient have surgery * Hx of CAD-w/ previous stenting- Holding Xarelto, continue statin, beta-rosaura as tolerated * GERD-Continue PPI DVT ppx: rivaroxaban. DW pt's at bedside SUE OLIVEIRA/RUSTY/RN. Plan for SNF pending acceptance. Charges/Coding Visit Charges Inpatient E&M: 01153 Subs Hosp L2
[2025-04-05 07:46] LABS: Anisocytosis RARE
[2025-04-05 07:47] LABS: Anion Gap 11 (5-15); BUN 18 mg/dL (4-19); BUN/Creat Ratio 16.6 RATIO (10-20); Calcium,Total 8.8 mg/dL (7.6-11.0); Carbon Dioxide 21.1 mmol/L (21.0-32.0); Chloride 100 mmol/L (98-108); Estimated Creatinine Clearance 43.39 ml/min (50-250); Glucose 182 mg/dL (70-99); Potassium 4.5 mmol/L (3.3-5.1)
--- NOTE | 2025-04-05 09:54 | CASEMGMT ---
Addendum entered by Piedad Esparza 04/05/25 15:59: NIYA OJEDA into pt room, pt and [facility] aware that [facility]. Pt denies any questions. Original Note: Spoke with therapy regarding evals. NIYA OJEDA into pt room, pt sitting up in chair on RA in no distress. Pt states that therapy did go well. She states her pain is much better post op. Patient was provided a list of SNF providers including quality and resource use data and consistent with the patient?s preferred geographic region, medical needs, and insurance network were provided from the [facility]. Pt has chose [facility]. Pt aware to choose second and third choice options in case they are unable to accept. Pt denies further needs at this time. Requested dc project assistant place referral.
[2025-04-05 10:00] VITALS: BP 104/52; PULSE 80; RESP 15; TEMP 36.6; O2SAT 92; O2SAT 95
--- NOTE | 2025-04-05 10:22 | CASEMGMT ---
Addendum entered by Keila Jameson 04/05/25 13:40: [facility]. NIYA CM updated. Original Note: Discharge Planning Referral sent to [facility]. Keila Jameson DC Planning Asst
[2025-04-05 11:04] VITALS: PULSE 80
[2025-04-05] MEDS: Senna/Docusate Sodium 1 Tablet 2 TABLET PO ×2 (11:04→22:42)
[2025-04-05] MEDS: Potassium Chloride Oral Tablet 20 MEQ 40 MEQ PO (11:04)
[2025-04-05] MEDS: Metoprolol(XL)Succ 50 MG Tablet PO (11:04)
[2025-04-05] MEDS: Ensure Surgery 237 ML LIQUID PO (11:13)
--- NOTE | 2025-04-05 15:18 | PCM.PN.ORT ---
Subjective Subjective Patient is s/p left hip cemented hemiarthroplasty with Dr. Rodriguez 04/04/25. Patient resting comfortably in bed. Tylenol, oxycodone and ice help to relieve pain. Patient has been up with therapy. Walking with the assit of a walker. Weightbearing as tolerated. Afebrile, no chest pain, shortness of breath, negative calf pain/ erythema, and no other signs of DVT. Objective Data Objective Data Vital Signs: Vital Signs Temp Pulse Resp BP Pulse Ox O2 Del Method O2 Flow Rate 97.8 F 80 15 104/52 L 92 Room Air 2 04/05/25 10:00 04/05/25 11:04 04/05/25 10:00 04/05/25 10:00 04/05/25 10:00 04/05/25 11:28 04/05/25 10:00 Oxygen Flow Rate (L/min) 2 Oxygen Delivery Method Room Air Weight: 89.6 kg Body Mass Index (BMI) 29.9 Intake & Output: Intake and Output for Last 24 Hours 04/03/25 04/04/25 04/05/25 23:59 23:59 23:59 Intake Total 1000 / 1000 1270 / 1270 50 / 50 Output Total 2000 / 4000 3600 / 3600 400 / 400 Balance -1000 / -3000 -2330 / -2330 -350 / -350 Lab / Micro Data 04/05/25 06:27 04/05/25 06:27 Labs: Laboratory Results - last 24 hr 04/04/25 16:25: POC Glucose 171 H 04/04/25 21:27: POC Glucose 213 H 04/05/25 05:56: POC Glucose 157 H 04/05/25 06:27: WBC 14.7 H, RBC 3.41 L, Hgb 10.2 L, Hct 31.5 L, MCV 92.4, MCH 29.9, MCHC 32.4, RDW Std Deviation 67.8 H, RDW Coeff of Jose Alberto 20.4 H, Plt Count 201, MPV 10.3, Immature Gran % (Auto) 0.400, Neut % (Auto) 88.4 H, Lymph % (Auto) 5.5 L, [place] % (Auto) 5.6, Eos % (Auto) 0.0, Baso % (Auto) 0.1, Absolute Neuts (auto) 13.0 H, Absolute Lymphs (auto) 0.81 L, Nucleated RBC % 0, Anisocytosis RARE, Sodium 132 L, Potassium 4.5, Chloride 100, Carbon Dioxide 21.1, Anion Gap 11, BUN 18, Creatinine 1.11, Estim Creat Clear Calc 43.39 L, Est GFR (MDRD) Non-Af 49 L, BUN/Creatinine Ratio 16.6, Glucose 182 H, Calcium 8.8 04/05/25 11:11: POC Glucose 256 H Radiography Diagnostic Testing: Radiology Impression Hip X-Ray 04/04/25 15:20 IMPRESSION: Status post total left hip replacement. Normal alignment without loosening. Reading Location: [facility] Physical Exam Narrative Patient resting comfortably in bed No signs of acute distress Satting well on room air Limb is warm to touch, Sensation intact throughout entire lower extremity, including saphenous, sural, superficial and deep peroneal, and tibial distribution. DP/PT pulses bounding. Dressing small amount of sanguanous drainage on the mid portion of dressing. it is dried at this time. Calf nontender to palpation, no erythema, no edema. Negative Homans Assessment & Plan Assessment/Plan (1) S/P total hip arthroplasty: PLAN: Plan 1. Will continue PT today. Weightbearing as tolerated. Posterior hip precautions x 6 weeks 2. plan for discharge per primary. Stable from orthopedic standpoint. 3. Patient will follow up for post op appointment in 2 weeks this will need to be scheduled. 4. WBC 14.7 acute reactive leukocytosis: secondary to pre operative decadron. no acute systemic signs of infection. will monitor, and likely self resolve. 5. H/H 10..5: post operavtive anemia secondary to acute blood loss intraoperatively. Patient is asymptomatic at this time. No intraoperative complications. will continue to monitor. no acute interventions. 6. DVT prophylaxis : Resume Xarelto 7. Pain control: patient instructed to take tylenol 500mg 2 tablets TID. and oxycodone 1-2 tablets every 4-6 hours only as needed for pain control. 8. ok to remove post op dressing. post op day 5 9. Hudson will be removed in 2 weeks.
[2025-04-05 16:00] VITALS: BP 125/58; PULSE 80; RESP 15; TEMP 36.3; O2SAT 93
[2025-04-05 20:11] VITALS: BP 113/42; PULSE 82; RESP 16; TEMP 36.6; O2SAT 95
[2025-04-05] MEDS: 0.9% Saline Lock 10 ML Syringe IV (22:45)
[2025-04-06 00:27] VITALS: BP 109/56; PULSE 79; RESP 16; TEMP 36.4; O2SAT 95
[2025-04-06] MEDS: MELATONIN 10 MG TABLET PO (00:30)
[2025-04-06 06:00] VITALS: BMI 29.9
[2025-04-06 06:03] VITALS: BP 102/74; PULSE 80; RESP 16; TEMP 36.6; O2SAT 95
[2025-04-06 07:01] VITALS: O2SAT 97
--- NOTE | 2025-04-06 08:04 | PN.HOSP_ITS ---
Reason for Visit Chief Complaint: Left hip pain after fall Objective Data Objective Data Vital Signs: Vital Signs Temp Pulse Resp BP Pulse Ox O2 Del Method O2 Flow Rate 36.6 C 80 16 102/74 97 Nasal Cannula 2 04/06/25 06:03 04/06/25 06:03 04/06/25 06:03 04/06/25 06:03 04/06/25 07:01 04/06/25 07:01 04/06/25 07:01 Oxygen Flow Rate (L/min) 2 Oxygen Delivery Method Nasal Cannula Weight: 89.6 kg Body Mass Index (BMI) 29.9 Intake & Output: Intake and Output for Last 24 Hours 04/04/25 04/05/25 04/06/25 23:59 23:59 23:59 Intake Total 1270 / 1270 350 / 350 1053.75 / 1053.75 Output Total 3600 / 3600 400 / 400 Balance -2330 / -2330 -50 / -50 1053.75 / 1053.75 Lab / Micro Data 04/05/25 06:27 04/05/25 06:27 Labs: Laboratory Results - last 24 hr 04/05/25 11:11: POC Glucose 256 H 04/05/25 17:03: POC Glucose 181 H 04/05/25 22:51: POC Glucose 165 H 04/06/25 06:17: POC Glucose 118 H Assessment & Plan Assessment/Plan (1) Closed left hip fracture: QUALIFIERS: Encounter type: initial encounter Qualified Code(s): S72.002A - Fracture of unspecified part of neck of left femur, initial encounter for closed fracture PLAN: Plan Left hip fracture * Imaging: Femur x-ray with nondisplaced impacted fracture of subcapital region of proximal left femur * 04/04: performed left hip cemented arthroplasty * Pain control and scheduled bowel regimen: Will continue patient's home oxycodone 3 times daily as scheduled as reportedly she does take it regularly * Patient's last dose of Xarelto was the evening of 04/02, unsure when surgery will take place, will make patient n.p.o. at midnight until this information is obtained to verify no delays * PT/OT * Case management and social work consults for DC planning Leukocytosis: * improved. likely reactive/demargination given fxr. * no additional work up at this time. Chronic medical conditions: * HFrEF: compensated. Last echo 03/26/2024 with EF of 45 to 50% unable to assess diastolic dysfunction with apex akinetic * History of A-fib/flutter/sick sinus syndrome with pacemaker placement * Type 2 diabetes mellitus-Glucose checks and sliding scale insulin-Hold home oral hypoglycemics * hypothyroidism-Continue Synthroid * Depression/anxiety-Continue home medications * Hypertension- Continue metoprolol with holding parameters, hold other home antihypertensives to allow for pain control and patient have surgery * Hx of CAD-w/ previous stenting- Holding Xarelto, continue statin, beta-rosaura as tolerated * GERD-Continue PPI DVT ppx: rivaroxaban. DW pt's at bedside SUE OLIVEIRA/RUSTY/RN. Plan for SNF pending acceptance.
--- NOTE | 2025-04-06 08:04 | PCM.PN.HOSP ---
Reason for Visit Chief Complaint: Left hip pain after fall Subjective Subjective Feeling well. No new complaints. Objective Data Objective Data Vital Signs: Vital Signs Temp Pulse Resp BP Pulse Ox O2 Del Method O2 Flow Rate 36.6 C 80 16 102/74 97 Nasal Cannula 2 04/06/25 06:03 04/06/25 06:03 04/06/25 06:03 04/06/25 06:03 04/06/25 07:01 04/06/25 07:01 04/06/25 07:01 Oxygen Flow Rate (L/min) 2 Oxygen Delivery Method Nasal Cannula Weight: 89.6 kg Body Mass Index (BMI) 29.9 Intake & Output: Intake and Output for Last 24 Hours 04/04/25 04/05/25 04/06/25 23:59 23:59 23:59 Intake Total 1270 / 1270 350 / 350 1053.75 / 1053.75 Output Total 3600 / 3600 400 / 400 Balance -2330 / -2330 -50 / -50 1053.75 / 1053.75 Lab / Micro Data 04/05/25 06:27 04/05/25 06:27 Labs: Laboratory Results - last 24 hr 04/05/25 11:11: POC Glucose 256 H 04/05/25 17:03: POC Glucose 181 H 04/05/25 22:51: POC Glucose 165 H 04/06/25 06:17: POC Glucose 118 H Physical Exam Const alert and no apparent distress Constitutional Narrative: up in chair. afebrile. non-toxic. HEENT head/scalp atraumatic Assessment & Plan Assessment/Plan (1) Closed left hip fracture: QUALIFIERS: Encounter type: initial encounter Qualified Code(s): S72.002A - Fracture of unspecified part of neck of left femur, initial encounter for closed fracture PLAN: Plan Left hip fracture Imaging: Femur x-ray with nondisplaced impacted fracture of subcapital region of proximal left femur 04/04: performed left hip cemented arthroplasty Pain control and scheduled bowel regimen: Will continue patient's home oxycodone 3 times daily as scheduled as reportedly she does take it regularly Patient's last dose of Xarelto was the evening of 04/02, unsure when surgery will take place, will make patient n.p.o. at midnight until this information is obtained to verify no delays PT/OT Case management and social work consults for DC planning Leukocytosis: improved. likely reactive/demargination given fxr. no additional work up at this time. Chronic medical conditions: HFrEF: compensated. Last echo 03/26/2024 with EF of 45 to 50% unable to assess diastolic dysfunction with apex akinetic History of A-fib/flutter/sick sinus syndrome with pacemaker placement Type 2 diabetes mellitus-Glucose checks and sliding scale insulin-Hold home oral hypoglycemics hypothyroidism-Continue Synthroid Depression/anxiety-Continue home medications Hypertension- Continue metoprolol with holding parameters, hold other home antihypertensives to allow for pain control and patient have surgery Hx of CAD-w/ previous stenting- Holding Xarelto, continue statin, beta-rosaura as tolerated GERD-Continue PPI DVT ppx: rivaroxaban. SUE pt's at bedside SUE OLIVEIRA/RUSTY/RN. SNF today.
[2025-04-06 09:00] VITALS: BP 121/48; PULSE 80; RESP 16; TEMP 36.6; O2SAT 94
[2025-04-06 09:27] VITALS: PULSE 80
[2025-04-06] MEDS: Metoprolol(XL)Succ 50 MG Tablet PO (09:27)
[2025-04-06] MEDS: Potassium Chloride Oral Tablet 20 MEQ 40 MEQ PO (09:27)
[2025-04-06] MEDS: Senna/Docusate Sodium 1 Tablet 2 TABLET PO (09:28)
--- NOTE | 2025-04-06 09:38 | TREXTCAR_ITS ---
Diet Diet Order/Speech Therapy: INPATIENT Hospital Diet / Speech Therapy Order(s) 04/04/25 20:26 Diet: Cardiac: Calorie-Controlled How many daily calories?: 1800 calorie DC O2, CPAP, BIPAP needs Home O2 Discharge instructions: No Wound(s) LT HIP: Wound Type: Surgical Incision Therapies Weight Bearing: Weight bearing as tolerated Extremity Affected:: Left Lower Physical Therapy: Eval and Treat Occupational Therapy: Eval and Treat Problem/Diagnosis (1) Closed left hip fracture: Status: Acute Code(s): S72.002A - Fracture of unspecified part of neck of left femur, initial encounter for closed fracture Plan Left hip fracture * Imaging: Femur x-ray with nondisplaced impacted fracture of subcapital region of proximal left femur * 04/04: performed left hip cemented arthroplasty * Pain control and scheduled bowel regimen: Will continue patient's home oxycodone 3 times daily as scheduled as reportedly she does take it regularly * Patient's last dose of Xarelto was the evening of 04/02, unsure when surgery will take place, will make patient n.p.o. at midnight until this information is obtained to verify no delays * PT/OT * Case management and social work consults for DC planning Leukocytosis: * improved. likely reactive/demargination given fxr. * no additional work up at this time. Chronic medical conditions: * HFrEF: compensated. Last echo 03/26/2024 with EF of 45 to 50% unable to assess diastolic dysfunction with apex akinetic * History of A-fib/flutter/sick sinus syndrome with pacemaker placement * Type 2 diabetes mellitus-Glucose checks and sliding scale insulin-Hold home oral hypoglycemics * hypothyroidism-Continue Synthroid * Depression/anxiety-Continue home medications * Hypertension- Continue metoprolol with holding parameters, hold other home antihypertensives to allow for pain control and patient have surgery * Hx of CAD-w/ previous stenting- Holding Xarelto, continue statin, beta-rosaura as tolerated * GERD-Continue PPI DVT ppx: rivaroxaban. SUE pt's at bedside SUE OLIVEIRA/RUSTY/RN. SNF today. Allergies/Procedures Done in Hospital Allergies poison fany extract (Poison Fany Extract) Allergy (Verified 04/03/25 13:18) Rash Sulfa (Sulfonamide Antibiotics) Allergy (Verified 04/03/25 13:18) Hives Procedures: - ( Left hip cemented hemiarthroplasty) Type of Care/Length of Stay Estimated LOS: Convalescent Care Less Than 30 days Type of Care Needed: Skilled Rehab Potential: Good Prognosis: Good Additional Orders/Day of Discharge Day of Discharge: 04/06/25 Discharge Plan Admission Admit Date/Time: 04/03/25 17:13 Primary Reason for Your Visit: left hip fracture. Attending Provider: Gunnar Mullen Primary Care Provider: Matt Rocha Consulting Providers: Ashli Bonner; Adonis Rodriguez Discharge Orders/Prescriptions Prescriptions: New acetaminophen 500 mg Tablet 1,000 mg PO Q8 PRN (Reason: pain) Qty: 0 0RF oxycodone 5 mg Tablet 5 mg PO TID 3 Days Qty: 9 0RF Ensure Surgery 0.08-1.4 gram-kcal/mL Liquid 237 ml PO TIDCM Qty: 0 0RF Continued amitriptyline 50 mg tablet 50 mg PO QHS Jardiance 10 mg tablet 10 mg PO DAILY ketotifen fumarate [Alaway] 0.025 % (0.035 %) drops 1 drp ophthalmic (eye) BID PRN (Reason: ITCHING/ALLERGIES ) omeprazole 40 MG capsule 40 mg PO DAILY buspirone 15 MG tablet 15 mg PO TID nitroglycerin 0.4 MG tablet 0.4 mg SUBLINGUAL Q5M PRN (Reason: CHEST PAIN ) ascorbic acid (vitamin C) [Vitamin C] 500 mg tablet 500 mg PO BID levothyroxine [Synthroid] 100 mcg tablet 100 mcg PO DAILY furosemide [Lasix] 40 mg tablet 40 mg PO DAILY Qty: 60 0RF amlodipine 10 mg tablet 10 mg PO DAILY Patient Comments: PT THINKS SHE IS STILL TAKING BUT HAS NOT FILLED IN SEVERAL MONTHS ferrous sulfate [FeroSul] 325 mg (65 mg iron) tablet 65 mg PO DAILY Xarelto 20 mg tablet 20 mg PO QPM Qty: 90 3RF Rx Instructions: must administer with evening meal losartan 100 mg tablet 100 mg PO DAILY Qty: 90 3RF potassium chloride 20 mEq tablet,ER particles/crystals 40 meq PO QDAY Qty: 90 3RF metoprolol succinate 50 mg tablet extended release 24 hr 50 mg PO DAILY Qty: 90 3RF simvastatin 20 mg tablet 20 mg PO QHS Qty: 90 3RF Discontinued oxycodone-acetaminophen 5-325 mg tablet 1 tab PO TID PRN PRN (Reason: pain) Referrals / Follow Up: Matt Rocha MD [Primary Care Provider, Family Practice] - Within 2 Weeks Adonis Rodriguez MD [Med Staff - Active Staff, Orthopedics] - Within 2 Weeks Disposition Disposition (needs filled in before D/C Order can be placed): Longterm Facility (1) Closed left hip fracture Qualifiers: Encounter type: initial encounter Qualified Code(s): S72.002A - Fracture of unspecified part of neck of left femur, initial encounter for closed fracture
--- NOTE | 2025-04-06 09:39 | DS.PCM_ITS ---
Providers Date of Admission: 04/03/25 Primary Care Physician: Dr. Matt Rocha MD Consultations 04/03/25 17:47 Consult: Orthopedics Routine Consulting Provider: Adonis Rodriguez Reason for Consult: left hip fx EMERGENT Consult: No MD Notified: Yes Date Notified: 04/03/25 Time Notified: 17:32 Method of Notification: ED Physician Initiated Reason For Visit: LEFT HIP FRACTURE Diagnosis Discharge Diagnosis (1) Closed left hip fracture: Status: Acute Code(s): S72.002A - Fracture of unspecified part of neck of left femur, initial encounter for closed fracture Qualifiers: Encounter type: initial encounter Qualified Code(s): S72.002A - Fracture of unspecified part of neck of left femur, initial encounter for closed fracture Plan Left hip fracture * Imaging: Femur x-ray with nondisplaced impacted fracture of subcapital region of proximal left femur * 04/04: performed left hip cemented arthroplasty * Pain control and scheduled bowel regimen: Will continue patient's home oxycodone 3 times daily as scheduled as reportedly she does take it regularly * Patient's last dose of Xarelto was the evening of 04/02, unsure when surgery will take place, will make patient n.p.o. at midnight until this information is obtained to verify no delays * PT/OT * Case management and social work consults for DC planning Leukocytosis: * improved. likely reactive/demargination given fxr. * no additional work up at this time. Chronic medical conditions: * HFrEF: compensated. Last echo 03/26/2024 with EF of 45 to 50% unable to assess diastolic dysfunction with apex akinetic * History of A-fib/flutter/sick sinus syndrome with pacemaker placement * Type 2 diabetes mellitus-Glucose checks and sliding scale insulin-Hold home oral hypoglycemics * hypothyroidism-Continue Synthroid * Depression/anxiety-Continue home medications * Hypertension- Continue metoprolol with holding parameters, hold other home antihypertensives to allow for pain control and patient have surgery * Hx of CAD-w/ previous stenting- Holding Xarelto, continue statin, beta-rosaura as tolerated * GERD-Continue PPI DVT ppx: rivaroxaban. DW pt's at bedside SUE SW/CM/RN. SNF today. Medications at Discharge Home Medications buspirone 15 mg tablet 15 mg PO TID ANXIETY 06/02/13 omeprazole 40 mg capsule,delayed release 40 mg PO DAILY ACID REFLUX 06/02/13 nitroglycerin 0.4 mg sublingual tablet 0.4 mg sublingual Q5M PRN CHEST PAIN 04/21/15 amitriptyline 50 mg tablet 50 mg PO QHS DEPRESSION 02/17/23 empagliflozin 10 mg tablet (Jardiance) 10 mg PO DAILY DIABETES 02/17/23 ketotifen fumarate 0.025 % (0.035 %) eye drops (Alaway) 1 drp ophthalmic (eye) BID PRN ITCHING/ALLERGIES 02/17/23 levothyroxine 100 mcg tablet (Synthroid) 100 mcg PO DAILY THYROID 12/14/23 furosemide 40 mg tablet (Lasix) 40 mg PO DAILY water pill #60 tabs 12/17/23 rivaroxaban 20 mg tablet (Xarelto) 20 mg PO QPM #90 tabs 10/06/24 losartan 100 mg tablet 100 mg PO DAILY blood pressure #90 tabs 11/18/24 potassium chloride 20 mEq tablet,extended release(part/cryst) 40 meq (2 x 20 mEq) PO QDAY #90 tabs 11/21/24 metoprolol succinate 50 mg tablet,extended release 24 hr 50 mg PO DAILY heart/BP #90 tabs 11/23/24 simvastatin 20 mg tablet 20 mg PO QHS CHOLESTEROL #90 tabs 12/22/24 amlodipine 10 mg tablet 10 mg PO DAILY 02/08/25 ferrous sulfate 325 mg (65 mg iron) tablet (FeroSul) 65 mg PO DAILY 02/08/25 ascorbic acid (vitamin C) 500 mg tablet (Vitamin C) 500 mg PO BID 04/03/25 acetaminophen 500 mg tablet 1,000 mg (2 x 500 mg) PO Q8 PRN pain #0 tabs 04/06/25 nut.tx.comp. immune systm,reg 0.08 gram-1.4 kcal/mL oral liquid (Ensure Surgery) 237 ml PO TIDCM #0 mL 04/06/25 oxycodone 5 mg tablet 5 mg PO TID 3 days #9 tabs 04/06/25 Hospital Course Operations - ( Left hip cemented hemiarthroplasty) Procedures None Weight / BMI Weight Weight: 89.6 kg Body Mass Index (BMI) 29.9 ABG / Lab / Microbiology Data 04/05/25 06:27 04/05/25 06:27 Laboratory: Laboratory Results - last 24 hr 04/05/25 11:11: POC Glucose 256 H 04/05/25 17:03: POC Glucose 181 H 04/05/25 22:51: POC Glucose 165 H 04/06/25 06:17: POC Glucose 118 H D/C Instructions DC O2, CPAP, BIPAP Needs Home O2 Discharge instructions: No Meaningful Use Info Meaningful Use Meaningful Use Diagnoses (Choose all that apply): None applicable Discharge Plan Admission Admit Date/Time: 04/03/25 17:13 Primary Reason for Your Visit: left hip fracture. Attending Provider: Gunnar Mullen Primary Care Provider: Matt Rocha Consulting Providers: Ashli Bonner; Adonis Rodriguez Discharge Orders/Prescriptions Prescriptions: New acetaminophen 500 mg Tablet 1,000 mg PO Q8 PRN (Reason: pain) Qty: 0 0RF oxycodone 5 mg Tablet 5 mg PO TID 3 Days Qty: 9 0RF Ensure Surgery 0.08-1.4 gram-kcal/mL Liquid 237 ml PO TIDCM Qty: 0 0RF Continued amitriptyline 50 mg tablet 50 mg PO QHS Jardiance 10 mg tablet 10 mg PO DAILY ketotifen fumarate [Alaway] 0.025 % (0.035 %) drops 1 drp ophthalmic (eye) BID PRN (Reason: ITCHING/ALLERGIES ) omeprazole 40 MG capsule 40 mg PO DAILY buspirone 15 MG tablet 15 mg PO TID nitroglycerin 0.4 MG tablet 0.4 mg SUBLINGUAL Q5M PRN (Reason: CHEST PAIN ) ascorbic acid (vitamin C) [Vitamin C] 500 mg tablet 500 mg PO BID levothyroxine [Synthroid] 100 mcg tablet 100 mcg PO DAILY furosemide [Lasix] 40 mg tablet 40 mg PO DAILY Qty: 60 0RF amlodipine 10 mg tablet 10 mg PO DAILY Patient Comments: PT THINKS SHE IS STILL TAKING BUT HAS NOT FILLED IN SEVERAL MONTHS ferrous sulfate [FeroSul] 325 mg (65 mg iron) tablet 65 mg PO DAILY Xarelto 20 mg tablet 20 mg PO QPM Qty: 90 3RF Rx Instructions: must administer with evening meal losartan 100 mg tablet 100 mg PO DAILY Qty: 90 3RF potassium chloride 20 mEq tablet,ER particles/crystals 40 meq PO QDAY Qty: 90 3RF metoprolol succinate 50 mg tablet extended release 24 hr 50 mg PO DAILY Qty: 90 3RF simvastatin 20 mg tablet 20 mg PO QHS Qty: 90 3RF Discontinued oxycodone-acetaminophen 5-325 mg tablet 1 tab PO TID PRN PRN (Reason: pain) Referrals / Follow Up: Matt Rocha MD [Primary Care Provider, Family Practice] - Within 2 Weeks Adonis Rodriguez MD [Med Staff - Active Staff, Orthopedics] - Within 2 Weeks Disposition Disposition (needs filled in before D/C Order can be placed): [facility] Facility Charges/Coding Visit Charges Inpatient E&M: 24000 Disch Hosp
--- NOTE | 2025-04-06 09:46 | PHA.DC.MR.R ---
Pharmacy [facility] Reconciliation Pharmacy Service has performed discharge medication reconciliation for this patient. The patient's discharge medication list was reviewed for discrepancies and discrepancies were resolved. Medications at Discharge Home Medications buspirone 15 mg tablet 15 mg PO TID ANXIETY 06/02/13 omeprazole 40 mg capsule,delayed release 40 mg PO DAILY ACID REFLUX 06/02/13 nitroglycerin 0.4 mg sublingual tablet 0.4 mg sublingual Q5M PRN CHEST PAIN 04/21/15 amitriptyline 50 mg tablet 50 mg PO QHS DEPRESSION 02/17/23 empagliflozin 10 mg tablet (Jardiance) 10 mg PO DAILY DIABETES 02/17/23 ketotifen fumarate 0.025 % (0.035 %) eye drops (Alaway) 1 drp ophthalmic (eye) BID PRN ITCHING/ALLERGIES 02/17/23 levothyroxine 100 mcg tablet (Synthroid) 100 mcg PO DAILY THYROID 12/14/23 furosemide 40 mg tablet (Lasix) 40 mg PO DAILY water pill #60 tabs 12/17/23 rivaroxaban 20 mg tablet (Xarelto) 20 mg PO QPM #90 tabs 10/06/24 losartan 100 mg tablet 100 mg PO DAILY blood pressure #90 tabs 11/18/24 potassium chloride 20 mEq tablet,extended release(part/cryst) 40 meq (2 x 20 mEq) PO QDAY #90 tabs 11/21/24 metoprolol succinate 50 mg tablet,extended release 24 hr 50 mg PO DAILY heart/BP #90 tabs 11/23/24 simvastatin 20 mg tablet 20 mg PO QHS CHOLESTEROL #90 tabs 12/22/24 amlodipine 10 mg tablet 10 mg PO DAILY 02/08/25 ferrous sulfate 325 mg (65 mg iron) tablet (FeroSul) 65 mg PO DAILY 02/08/25 ascorbic acid (vitamin C) 500 mg tablet (Vitamin C) 500 mg PO BID 04/03/25 acetaminophen 500 mg tablet 1,000 mg (2 x 500 mg) PO Q8 PRN pain #0 tabs 04/06/25 nut.tx.comp. immune systm,reg 0.08 gram-1.4 kcal/mL oral liquid (Ensure Surgery) 237 ml PO TIDCM #0 mL 04/06/25 oxycodone 5 mg tablet 5 mg PO TID 3 days #9 tabs 04/06/25
--- NOTE | 2025-04-06 10:00 | CASEMGMT ---
Social Work Patient for discharge today. 0700 Hospital exemption completed via the [facility]. Copy made for chart and for the [facility]. Discharge assistant working on final discharge arrangements and communication with patient/family/SNF. Plan: Skilled level of care on hospital exemption/convalescent stay to [facility]. No other services requested or indicated. -REBA Galindo
--- NOTE | 2025-04-06 10:34 | CASEMGMT ---
Discharge Planning Discharge orders, signed med list, and transport time sent to [facility] [place]. Physicians will transport pt by wheelchair at noon. Nursing, SW, pt, and her updated. Keila Jameson DC Planning Asst.
== END 2025-04-06 11:37 | disposition skilled nursing facility (03) | DRG 522 ==
LOC: ED 17:11 → MS3 17:25
PROVIDERS: Orthopaedic Surgery; Admitting Provider Internal Medicine; Emergency Provider Emergency Medicine; PCP Family Medicine
PROC: 0SRS0J9 Replacement of Left Hip Joint, Femoral Surface with Synthetic Substitute, Cemented, Open Approach (ICD-10-PCS; CPT 27125; principal; 2025-04-04 12:10)
DX: S72.012A Unspecified intracapsular fracture of left femur, initial encounter for closed fracture (principal); D62 Acute posthemorrhagic anemia; I13.0 Hypertensive heart and chronic kidney disease with heart failure and stage 1 through stage 4 chronic kidney disease, or unspecified chronic kidney disease; I50.22 Chronic systolic (congestive) heart failure; E87.1 Hypo-osmolality and hyponatremia; E11.22 Type 2 diabetes mellitus with diabetic chronic kidney disease; E03.9 Hypothyroidism, unspecified; N18.9 Chronic kidney disease, unspecified; F32.A Depression, unspecified; I48.0 Paroxysmal atrial fibrillation; E78.5 Hyperlipidemia, unspecified; F41.9 Anxiety disorder, unspecified; I25.10 Atherosclerotic heart disease of native coronary artery without angina pectoris; K21.9 Gastro-esophageal reflux disease without esophagitis; W01.0XXA Fall on same level from slipping, tripping and stumbling without subsequent striking against object, initial encounter; Y93.01 Activity, walking, marching and hiking; Y92.009 Unspecified place in unspecified non-institutional (private) residence as the place of occurrence of the external cause; R09.02 Hypoxemia; Z79.890 Hormone replacement therapy; Z79.01 Long term (current) use of anticoagulants; Z79.84 Long term (current) use of oral hypoglycemic drugs; Z79.899 Other long term (current) drug therapy; Z87.891 Personal history of nicotine dependence; Z96.642 Presence of left artificial hip joint; Z95.0 Presence of cardiac pacemaker; Z95.5 Presence of coronary angioplasty implant and graft
CPT/HCPCS: 36415; 70450; 71045; 72125; 72170; 73502; 73552; 80048; 82962; 83880; 85025; 85610; 85730; 86850; 86900; 86901; 93005; 94668; 94762; 97162; 97166; 99285; C1776; A4216; J1938; J2405

== ENCOUNTER 2025-04-29 10:13 | Inpatient (IN) | payer MEDICARE, BC, SELFPAY ==
[2025-04-29] VITALS (8 sets, daily range): BP systolic 118–154; BP diastolic 67–70; PULSE 79–80; RESP 16–28; TEMP 36.6–36.8; O2SAT 91–96; BMI 27.6; BMI 26.6
--- NOTE | 2025-04-29 10:35 | CT_ITS ---
PROCEDURE: BRAIN/HEAD WITHOUT CONTRAST N/A REASON FOR EXAM: FALL/TRAUMA TECHNIQUE: Procedure Code: CTBR Modality: CT Procedure: BRAIN/HEAD WITHOUT CONTRAST Coronal and Sagittal reconstruction series were provided. One or more dose reduction techniques were used (e.g., Automated exposure control, adjustment of the mA and/or kV according to patient size, use of iterative reconstruction technique. RADIATION DOSE SUMMARY: CTDlvol: 45.99 mGy DLP: 846.73 mGycm COMPARISON: CT head April 01, 2025. FINDINGS: Brain: Extensive low density in the deep cerebral white matter most likely represents advanced chronic small vessel ischemic disease. No acute intracranial hemorrhage. No mass-effect or midline shift. Atherosclerotic calcifications of the carotid siphons. The craniocervical junction is unremarkable. No acute orbital abnormalities. CSF Spaces: Normal Sinuses/Mastoids: Clear at visualized levels Bones: No acute bony abnormalities. CT/Brain/Head without Contrast IMPRESSION: No acute intracranial abnormalities. Reading Location: [id number]
--- NOTE | 2025-04-29 10:38 | ED.VIS.FALL ---
HPI HPI - Fall History of Present Illness Chief Complaint: Fall Informant: patient and EMS Narrative Narrative: Patient is an 84-year-old female presenting to the ED via EMS after a fall, with right hip pain and head injury. - Patient reports feeling better and attempted to go to the bathroom using her walker. While trying to prevent the door from closing, she lost her balance and fell. - Reports pain in the right hip and head; denies neck pain. - Unable to bear weight on the right hip or move it post-fall. - Denies pain in the ribs. - Reports a knot on the back of her head, but no cuts. No LOC. - Denies being on anticoagulants. - Currently in rehab for a recent left hip surgery about a month ago. That was done by Dr. Adonis Rodriguez. [facility] Medical History Heart failure Overweight (BMI 25.0-29.9) Coronary artery disease Iron deficiency anemia History of non-ST elevation myocardial infarction (NSTEMI) (2013) Longstanding persistent atrial fibrillation Essential (primary) hypertension Anxiety Hypothyroidism Hyperlipidemia Secondary pulmonary arterial hypertension Atherosclerosis of coronary artery of [place] heart without angina pectoris Paroxysmal atrial fibrillation Paroxysmal atrial flutter Sick sinus syndrome Home Medications ?Medication ?Instructions ?Recorded ?Last Taken ?Type buspirone 15 mg tablet 15 mg PO TID ANXIETY 06/02/13 04/04/25 History omeprazole 40 mg capsule,delayed 40 mg PO DAILY ACID REFLUX 06/02/13 04/02/25 History release nitroglycerin 0.4 mg sublingual 0.4 mg sublingual Q5M PRN CHEST 04/21/15 Unknown History tablet PAIN amitriptyline 50 mg tablet 50 mg PO QHS DEPRESSION 02/17/23 04/02/25 History levothyroxine 100 mcg tablet 100 mcg PO DAILY THYROID 12/14/23 04/04/25 History (Synthroid) rivaroxaban 20 mg tablet (Xarelto) 20 mg PO QPM #90 tabs 10/06/24 04/02/25 Rx losartan 100 mg tablet 100 mg PO DAILY blood pressure #90 11/18/24 04/03/25 Rx tabs potassium chloride 20 mEq 40 meq (2 x 20 mEq) PO QDAY #90 11/21/24 04/02/25 Rx tablet,extended release(part/cryst) tabs metoprolol succinate 50 mg 50 mg PO DAILY heart/BP #90 tabs 11/23/24 04/04/25 Rx tablet,extended release 24 hr amlodipine 10 mg tablet 10 mg PO DAILY 02/08/25 04/02/25 History ferrous sulfate 325 mg (65 mg 65 mg PO DAILY 02/08/25 04/03/25 History iron) tablet (FeroSul) ascorbic acid (vitamin C) 500 mg 500 mg PO BID 04/03/25 04/03/25 History tablet (Vitamin C) acetaminophen 500 mg tablet 1,000 mg (2 x 500 mg) PO Q8 PRN 04/06/25 Unknown Rx pain #0 tabs oxycodone 5 mg tablet 5 mg PO TID 3 days #9 tabs 04/06/25 Unknown Rx atorvastatin 10 mg tablet (Lipitor) 10 mg PO QHS 04/29/25 Unknown History dapagliflozin propanediol 10 mg 10 mg PO DAILY 04/29/25 Unknown History tablet furosemide 40 mg tablet (Lasix) 40 mg PO Q12H water pill 04/29/25 Unknown History melatonin 5 mg tablet 5 mg PO QHS 04/29/25 Unknown History Allergy/AdvReac Type Severity Reaction Status Date / Time poison fany extract (Poison Allergy Rash Verified 04/29/25 10:19 Fany Extract) Sulfa (Sulfonamide Allergy Hives Verified 04/29/25 10:19 Antibiotics) Family History Mother Cancer Father Cancer Brother CAD (coronary artery disease) Sister CAD (coronary artery disease) Surgical History S/P kyphoplasty History of tubal ligation History of appendectomy History of hysterectomy History of left heart catheterization (10/09/13) History of coronary artery stent placement (09/2010) Hx of atrioventricular node ablation (03/31/16) Presence of cardiac pacemaker (04/26/15) Social History household members: spouse Smoking Status: Former smoker how long ago did patient quit smokin's alcohol intake: never substance use type: does not use caffeine: Yes Type: coffee Number of servings: 3 ROS ROS ED Constitutional Constitutional ED: Denies chills or fever(s) Eyes Eyes: Denies change in vision or diplopia ENT ENT ED: Denies ear pain, epistaxis, facial pain or rhinorrhea Cardiovascular Cardiovascular: Denies chest pain or palpitations Respiratory/Chest Respiratory/Chest: Denies cough or dyspnea Gastrointestinal Gastrointestinal: Denies abdominal pain, diarrhea, melena, nausea or vomiting Genitourinary Genitourinary ED: Denies dysuria or hematuria Musculoskeletal Musculoskeletal: Reports extremity pain; Denies back pain or neck pain Integumentary Denies abscess, Abrasions, laceration or rash Neurologic Neurologic: Reports headache(s); Denies confusion, paresthesias or weakness EXAM Physical Exam Const Vital Signs: 04/29/25 10:14 04/29/25 10:19 04/29/25 10:19 Temperature 97.8 F Temperature Source Oral Pulse Rate 80 Respiratory Rate 18 26 H Respiratory Effort Normal Non-Labored Respiratory Depth Normal Respiratory Pattern Normal Blood Pressure 154/70 H Blood Pressure Mean 98 Pulse Ox 04/29/25 11:13 Temperature Temperature Source Pulse Rate 80 Respiratory Rate 18 Respiratory Effort Respiratory Depth Respiratory Pattern Blood Pressure 150/70 H Blood Pressure Mean 96 Pulse Ox 96 Positive well nourished and well developed General Appearance ED: well developed and NAD HEENT Reports TM's clear and nasal mucous membranes and turbinates normal HEENT Narrative: No Javed sign, no raccoon eyes, no CSF otorhinorrhea, no hemotympanum. trauma and hematoma Hematoma Size: 4-5 cm, right occipital. No crepitus or depression. No overlying lacerati Face and Sinus: Negative for facial tenderness Tympanic Membrane ED: Yes TM's clear Eyes PERRL and EOMs intact bilaterally Visual Acuity: other Other Details: no entrapment or pain with extraocular movements Neck full ROM and supple General: Negative for tenderness Chest Wall inspection of chest normal and palpation of chest normal Chest: symmetrical chest wall rise; Negative for crepitus or tenderness Resp normal respiratory effort and clear to auscultation bilaterally Percussion: other equal BS bilat Cardio no murmurs Rate: Negative for tachycardic Rhythm: abnormal rhythm irregularly irregular GI normal to inspection, nondistended, normoactive bowel sounds, soft to palpation and non-tender Back/Spine normal ROM Cervical Spine: Negative for cervical spine tenderness Thoracic Spine / Upper Back: Negative for thoracic spinal tenderness Lumbar Spine / Lower Back: Negative for lumbar spinal tenderness Extremity normal to inspection and full ROM Extremity Narrative: Tender right hip greater trochanter, shortening and externally rotated limited range of motion significant pain with trying to passively rotate/from range. Other joints range well without issue or limitation. Neurovascular intact distally with a DP pulse 2+ bilateral. General Extremety ED: Yes tenderness Neuro oriented x3, CN's II-XII intact bilaterally, moves all extremities, no focal motor deficits and no sensory deficits noted [place] Coma Scale: document GCS findings Spontaneous Obeys Commands Oriented 15 Sensorium / Orientation: awake and alert Psych mental status grossly normal and thought process normal Skin no wounds Lesions: no lesions Rashes: no rashes MDM MDM MDM Narrative Medical decision making narrative: Clinically, there is a high suspicion of a right hip fracture. Three views of the right hip and pelvis confirm a subcapital femoral neck fracture. A one-view preoperative chest X-ray is unremarkable, and a CT of the head shows no subdural or intracranial injury; radiology confirmed these findings. Preoperative labs and an EKG were obtained. She appears to be pacing and capturing at 80 with no acute injury pattern. She is clinically stable and was given pain medication. I discussed this case with orthopedics (Dr. Grier) on for Dr. Rodriguez. Because she is on Xarelto and it is Thursday, operative management will likely be scheduled for Thursday rather than sooner. This plan was discussed with the hospitalist. Lab Data Attestation: I reviewed the patient's lab results. Labs: Laboratory Results - last 24 hr 04/29/25 10:25 WBC 14.2 H RBC 4.28 Hgb 13.1 Hct 40.5 MCV 94.6 MCH 30.6 MCHC 32.3 RDW Std Deviation 55.3 H RDW Coeff of Jose Alberto 16.4 H Plt Count 342 MPV 10.9 Immature Gran % (Auto) 1.100 H Neut % (Auto) 84.8 H Lymph % (Auto) 5.9 L [place] % (Auto) 7.7 Eos % (Auto) 0.2 Baso % (Auto) 0.3 Absolute Neuts (auto) 12.0 H Absolute Lymphs (auto) 0.83 Nucleated RBC % 0 Sodium 135 Potassium 3.5 Chloride 96 L Carbon Dioxide 25.1 Anion Gap 14 BUN 20 H Creatinine 1.18 Estim Creat Clear Calc 39.28 L Est GFR (MDRD) Non-Af 45 L BUN/Creatinine Ratio 17.0 Glucose 186 H Calcium 9.9 Radiography Diagnostic Testing: Clinical Impression(s) from Imaging Studies Brain CT 04/29/25 10:35 IMPRESSION: No acute intracranial abnormalities. Reading Location: [facility] Rhythm Strip Rhythm Strip: paced Rate: 80 Ectopy: None EKG Initial EKG: Attestation: I personally reviewed and interpreted this EKG as follows: Interpretation: Paced Management Discussion w/another healthcare provider: Hospitalist and [employer] (ortho) Discharge Plan Dx/Rx/DC Orders Clinical Impression: Displaced fracture of neck of right femur, Anticoagulated on rivaroxaban, Fall from slip, trip, or stumble, Traumatic hematoma of scalp, Head injury, closed Disposition Disposition: Acute Care Hospital [facility]
--- NOTE | 2025-04-29 10:39 | EKG12_ITS ---
Test Reason : Blood Pressure : */* mmHG Vent. Rate : 80 BPM Atrial Rate : 69 BPM P-R Int : * ms QRS Dur : 174 ms QT Int : 476 ms P-R-T Axes : * -83 96 degrees QTcB Int : 548 ms Ventricular-paced rhythm Abnormal ECG Confirmed by KYUNG MORRISON, DICKSON ([id number]), sound editor RIVER FRIAS ([id number]) on 05/01/2025 6:44:49 AM Referred By: Confirmed By: DICKSON TRACEY MD
--- OUTSIDE RECORDS SUMMARY | 2025-04-29 10:43 | XMS RPT_ITS | CCD ---
Author Organization [facility] CliniSyvt Care Team Providers Care Security Manager Name Role Phone Kristan Narvaez Unavailable Unavailable Kristan Narvaez Unavailable Unavailable Victor M Rocha MD Primary Care Provider Victor M Rocha MD Unavailable Dr. Victor M Rocha Primary Care Provider [phone] Dr. Victor M Rocha Referring Provider [phone] [...] Dr. Victor M Rocha Primary Care Provider Dr. Victor M Rocha Referring Provider [phone] Dr. Vinny Root Attending Provider [phone] Victor M Rocha Primary Care Provider [phone] Dr. Victor M Rocha Referring Provider [phone] Dr. Vinny Root Attending Provider [phone] Victor M Rocha Primary Care Provider [phone] Dr. Victor M Rocha Referring Provider [phone] Dr. Vinny Root Attending Provider Victro M Rocha MD Primary Care Provider Josefa RN, Brittny Unavailable ELIZABET BAKER Referring Unavailable VICTOR M ROCHA Primary Care Unavailable Sandrine NÚÑEZ, Pratik Milese Unavailable Tannhof JET DYEING MACHINE OPERATOR.YARN DUMPER, Yovana Unavailable Lacy JET DYEING MACHINE OPERATOR.YARN DUMPER, Carlos Unavailable Camilla NÚÑEZ, Prema Unavailable Unavailable Tannhof JET DYEING MACHINE OPERATOR.YARN DUMPER, Yovana Unavailable Unavail able Tannhof JET DYEING MACHINE OPERATOR.YARN DUMPER, Yovana Unavailable Aj MORRISON, Dr. Gutierrez Primary Care Provider Ivett MORRISON, Dr. Casillas Attending Provider Aj MORRISON, Dr. Gutierrez Referring Provider Javy BRISCOE, Amber Mitchell Attending Provider Camilla NÚÑEZ, Prema Unavailable Unavailable Aj MORRISON, Dr. Gutierrez Primary Care Provider Ivett MORRISON, Dr. Casillas Attending Provider Dr. Brenda Li MD Attending Provider Dutch HURTADO, Dr. Chang Emergency Provider de Smith DO, Dr. Carrera Admit Provider Unavail able de Smith DO, Dr. Carrera Attending Provider Unav ailable de Smith DO, Dr. Carrera Other Provider Unavail able Gilda MORRISON, Dr. Joanne Rosas Attending Provider Gilda MORRISON, Dr. Joanne Rosas Other Provider Mariaa HURTADO, Dr. Gutiérrez Attending Provider Jen MORRISON, Dr. Gutierrez Attending Provider Guy BARRIOS-C, Phyllis Attending Provider VICTOR M ROCHA Referring Unavailable VICTOR M ROCHA Primary Care Unavailable CARLOS HOUSE Attending Unavailable VICTOR M ROCHA Primary Care Unavailable CARLOS HOUSE Attending Unavailable ELDERBROCK, VICTOR M Garcia Primary Care Unavailable LACY, CARLOS Referring Unavailable ELDERBROCK, VICTOR M D Primary Care Unavailable LACY, CARLOS Referring Unavailable ELDERBROCK, VICTOR M D Primary Care Unavailable KNINDRA, SHARLENE Attending Unavailable ELDERBROCK, VICTOR M D Primary Care Unavailable KNOBLE, SHARLENE Referring Unavailable ELDERBROCK, VICTOR M D Primary Care Unavailable AGARWAL SHARA Attending Unavailable LACY, CARLOS Referring Unavailable ELDERBROCK, VICTOR M D Primary Care Unavailable ELDERBROCK, VICTOR M D Attending Unavailable ELDERBROCK, VICTOR M D Primary Care Unavailable MASCIELIZABET A Attending Unavailable ELDERBROCK, VICTOR M D Primary Care Unavailable MASCI, ELIZABET A Attending Unavailable ELDERBROCK, VICTOR M Garcia Primary Care Unavailable YOVANA PAINTER Attending Unavailabl e ELDERBROCK, VICTOR M Garcia Primary Care Unavailable Aj MORRISON, Dr. Gutierrez Primary Care Provider [phone] Gilda MORRISON, Dr. Joanne Rosas Referring Provider Aj MORRISON, Dr. Gutierrez Referring Provider Aj MORRISON, Dr. Gutierrez Primary Care Physician Ivett MORRISON, Dr. Casillas Attending Physician Jen MORRISON, Dr. Gutierrez Attending Physician Dr. Bernardo Judd DO Emergency Department Physi milton Xiao DO, Dr. Carrera Admitting Physician Lidia vailable Xiao DO, Dr. Carrera Nurse Practitioner Unav ailable Gilda MORRISON, Dr. Joanne Rosas Attending Physician Gilda MORRISON, Dr. Joanne Rosas Nurse Practitioner Dr. Brock Leroy DO Attending Physician Guy BARRIOS-Yodit, Phyllis Attending Physician Dr. Corwin Shearer DO Emergency Department Physic kathe Ha MORRISON, Dr. Cornelius Admitting Physician Ha MORRISON, Dr. Cornelius Nurse Practitioner Dr. Gunnar Mullen DO Attending Physician Michael MORRISON, Dr. Lamb Nurse Practitioner [phone] Gunnar Mullen DO Nurse Practitioner Ivett, Vinny Attending Unavailable Elderbrock, Victor M Primary Care Unavailable Ivett, Vinny Attending Unavailable Elderbrock, Victor M Primary Care Unavailable Elderbrock, Victor M Referring Unavailable Ivett, Vinny Attending Unavailable Elderbrock, Victor M Primary Care Unavailable Ivett, Woodson Attending Unavailable Elderbrock, Victor M Primary Care Unavailable George Christina Attending Unavailable Elderbrock, Victor M Referring Unavailable Elderbrock, Victor M Primary Care Unavailable Jopperi, Gunnar Attending Unavailable Elderbrock, Victor M Primary Care Unavailable Ashli Bonner Consulting Unavailable Ashli Bonner Admitting Unavailable Adonis Rodriguez Consulting Unavailable Gunnar Mullen Consulting Unavailable Deandre Xiao Consulting Unavailable Ra Mariaahsaan Attending Unavailable Koram, Joanne Alison Referring Unavailable Deandre Xiao Admitting Unavailable Elderbrock, Victor M Primary Care Unavailable Koram, Joanne Alison Consulting Unavailable Elderbrock, Victor M Referring Unavailable Phyllis Tovar NP Attending Unavailable Elderbrock, Victor M Primary Care Unavailable Ivett, Woodson Attending Unavailable Elderbrock, Victor M Primary Care Unavailable Ivett, Vinny Attending Unavailable Elderbrock, Victor M Primary Care Unavailable Elderbrock, Victor M Referring Unavailable Amber Palafox Attending Unavailabl e Elderbrock, Victor M Primary Care Unavailable Deandre Xiao Consulting Unavailable Gilda, Joanne Alison Attending Unavailable Elderbrock, Victor M Primary Care Unavailable Deandre Xiao Admitting Unavailable Gunnar Mullen Attending Unavailable Elderbrock, Victor M Primary Care Unavailable Ha Ashli Admitting Unavailable Ashli Bonner Consulting Unavailable Adonis Rodriguez Consulting Unavailable Gilda, Joanne Alison Attending Unavailable Deandre Xiao Attending Unavailable Ashli Bonner Attending Unavailable Ivett, Woodson Attending Unavailable Elderbrock, Victor M Primary Care Unavailable Allergies Allergy Classification Reported Allergen(s) Allergy Type Date of Onset Reaction(s) Facility POISON FANY EXTRACT (2 sources) POISON FANY EXTRACT Drug Allergy 6 [facility] Work Phone: Sulfonamides (antibiotic) (2 sources) Sulfonamides (Antibiotic) Drug Allergy 6 [facility] (2 sources) aspirin Drug Allergy 05-12-201 7 anemia [facility] Work Phone: (2 sources) Sulfonamides (Antibiotic) drug allergy 1 [facility] Work Phone: (20 sources) POISON FANY EXTRACT; Translations: [POISON FANY] Drug Allergy 6 [facility] Work Phone: (20 sources) Sulfonamides (Antibiotic); Translations: [SULFA (SULFONAMIDE ANTIBIOTICS)] Drug Allergy 6 [facility] (11 sources) Sulfonamides (Antibiotic) Allergy to substance 3 [facility] (1 source) Sulfonamides (Antibiotic) Drug allergy (disorder) [address] [facility] (1 source) poison fany extract Drug allergy (disorder) [address] [facility] Medications Current Medications Medication Drug Class(es) Dates Sig (Normalized) Sig (Original) acetaminophen 500 mg oral tablet (20 sources) Start: 04-06-2025 take 2 tablets by mouth every eight hours as needed for pain Start: 04-06-2025 take 2 tablets by mo uth every eight hours as needed for pain Start: 02-17-2023 End: 03-29-2024 take 2 capsules [...] STRENGTH 500 MG TABS As needed ACETAMINOPHEN [id number] Dee Mercedes Start: 10-08-2010 End: 02-24-2025 take 2 tablets by mouth every four hours as needed acetaminophen (TYLENOL EXTRA STRENGTH) 500 mg ORAL tablet Take 2 tablets by mouth every 4 hours as needed. 100 tablet 0 10/08/2010 02/24/2025 Discontinued Comment on above: Take 2 tablets by [facility] every 4 hours as needed. amitriptyline hydrochloride 50 mg oral tablet (20 sources) Tricyclic Antidepressant Start: 06-02-2022 End: 08-12-2024 take 1 tablet by mouth at bedtime Start: 04-24-2022 End: 06-02-2022 take 2 tablets [...] One tablet by mouth daily AMITRIPTYLINE HCL [id number] Sanaz Beverly RN Comment on above: Take 1 tablet by [facility] daily at bedtime. Take 2 tablets by [facility] daily at bedtime. amLODIPine 10 mg oral tablet (20 sources) Dihydropyridine Calcium Channel Rosaura Start: 02-08-2025 take 1 tablet by mouth once daily Start: 02-26-2018 End: 03-29-2024 Amlodipine 10 mg tablet Disc ontinued 0 .ROUTE .COMPLEX 90 3 November 25, 2023 9:24am December 14, 2023 11:42am TAKE 1 TABLET DAILY Start: 10-25-2013 End: 07-11-2014 take 1 tablet by mouth once daily AMLODIPINE BESYLATE 5 MG TABS One tablet by mouth daily (in addition to Exforge) AMLODIPINE BESYLATE [id number] Amber Palafox PA-C Start: 10-10-2013 End: 10-10-2013 take 1 tablet by mouth once daily Amlodipine 10 MG tablet Discontinued 10 mg PO DAILY 30 October 10, 2013 12:00am October 10, 2013 11:30am Comment on above: Take 1 tablet by sarah th once daily. ascorbic acid 500 mg oral tablet (8 sources) Vitamin C Start: 04-03-2025 take 1 tablet by mouth twice daily Start: 02-07-2025 take 1 tablet by sarah th twice daily ascorbic acid, vitamin C, (VITAMIN C) 500 mg tablet Indications: Anemia, unspecified type Take 1 tablet by mouth two times a day. 60 tablet 2 02/07/2025 Active busPIRone hydrochloride 15 m g oral tablet (20 sources) Start: 06-02-2013 End: 04-10-2025 take 1 tablet by mouth three times daily Start: 10-21-2010 End: 04-28-2023 take 1 tablet by mouth twice daily Buspirone 15 MG tablet Active 15 mg PO TWICE A DAY June 02, 2013 1:00am ANXIETY Comment on above: Take 1 tablet by sarah th twice daily. Take 1 tablet by sarah th three times a day. cephalexin 500 mg [...] on above: Take 1 capsule by mo uth three times a day for 7 days. empagliflozin 10 mg oral tablet (20 sources) Sodium-Glucose Cotransporter 2 Inhibitor Start: 10-24-2022 End: 11-25-2024 take 1 tablet by mouth once daily Comment on above: Take 1 tablet by sarah th once daily. Take 1 tablet once daily in the morning ferrous sulfate 325 mg oral tablet (20 sources) Start: 02-08-2025 Start: 02-08-2025 Ferrous Sulfat e (Ferosul) 325 mg (65 mg iron) tablet Active 65 mg PO DAILY February 08, 2025 12:00am Start: 02-07-2025 take 1 tablet by sarah th twice daily at mealtime ferrous sulfate 325 mg (65 mg iron) tablet Indications: Anemia, unspecified type Take 1 tablet by mouth two times a day with meals. 60 tablet 2 02/07/2025 Active Start: 08-31-2018 End: 11-11-2019 take 1 tablet by mouth twice daily Ferrous Sulfate 325 mg (65 mg iron) tablet Discontinued 325 mg PO TWICE A DAY August 31, 2018 1:00am November 11, 2019 3:45pm furosemide 40 mg oral tablet (20 sources) Loop Diuretic Start: 12-17-2023 End: 02-23-2025 take 1 tablet by mouth once daily Start: 05-15-2016 End: 02-26-2018 take 1 tablet by mouth once daily Furosemide 20 MG tablet Discontinued 20 mg PO DAILY 90 July 16, 2017 3:29pm February 26, 2018 11:12am iv contrast (will be provided with radiology test) (1 source) Start: 04-01-2024 End: 04-02-2024 inject 1 dose intravenously once, then inject 1 dose intravenously once ketotifen 0.25 mg/ml ophthalmic solution (20 sources) Histamine-1 Receptor Inhibitor Start: 02-17-2023 take 0.025 drop(s) into the eye(s) twice daily as needed Start: 02-17-2023 Ketotifen Fuma rate ([place]away) 0.025 [...] daily Levofloxacin Active 750 MG PO DAILY 4 June 15, 2023 12:00am LORazepam 0.5 mg oral tablet (1 source) Benzodiazepine Start: 04-01-20 End: 04-01-20 take 1 tablet by mouth once, then take 1 tablet by mouth every hour losartan potassium 100 mg oral tablet (20 sources) Angiotensin 2 Receptor Rosaura Start: 03-25-20 End: 11-19-19 take 1 tablet by mouth once daily Start: 02-26-2018 End: 12-24-2023 Losartan 100 mg tablet Disco ntinued 0 .ROUTE .COMPLEX 90 3 November 25, 2023 9:24am December 14, 2023 11:42am TAKE 1 TABLET DAILY Comment on above: Take 1 tablet by [facility] once daily. mupirocin 0.02 mg/mg topical ointment (2 sources) RNA Synthetase Inhibitor Antibacterial Start: 4 End: mupirocin (BACTROBAN) 2 % ointment Apply to affected area three times a day for 7 days. 15 g 0 02/16/2024 02/23/2024 Active nitroglycerin 0.4 mg sublingual tablet (20 sources) Nitrate Vasodilator Start: End: Comment on above: Dissolve 1 tablet un antonio the tongue every 5 minutes as needed for Chest Pain. Nut.Tx.Comp. Immune Systm,Reg ([facility]) 0.08-1.4 gram-kcal/mL Liquid (2 sources) Start: omeprazole 40 mg delayed release oral capsule (20 sources) Proton Pump Inhibitor Start: End: 4 take 1 capsule by mouth once daily Comment on above: Take 1 capsule by mo [facility] once daily. oxyCODONE hydrochloride 5 mg oral tablet (20 sources) Opioid Agonist Start: 5 take 1 tablet by mouth three times daily Start: 04-06-2025 take 1 tablet by sarah th three times daily Start: 08-15-2022 End: 02-17-2023 take 1 tablet [...] T11-T12 vertebra, initial encounter for closed fracture levothyroxine sodium 0.1 mg oral tablet (20 sources) l-Thyroxine Start: 10-30-2023 End: 10-27-2024 take 1 tablet by mouth once daily Start: 08-20-2015 End: 12-14-2023 take 1 tablet by mouth once daily Levothyroxine 75 MCG tablet Discontinued 75 ug PO DAILY April 02, 2017 12:00am December 14, 2023 11:37am Comment on above: Take 1 tablet by sarah once daily. TAKE 1 TABLET BY SARAH TH ONCE DAILY ON AN EMPTY STOMACH FOR THYROID Completed/Discontinued Medications Medication Drug Class(es) Dates Sig (Normalized) Sig (Original) acetaminophen 325 mg / HYDROcodone bitartrate 5 mg oral tablet (19 sources) Opioid Agonist Start: 11-21-2024 End: 02-08-2025 Hydrocodone-Acetami nophen 5-325 mg tablet Discontinued 1 {tbl} PO THREE TIMES A DAY 0 November 21, 2024 12:00am February 08, 2025 5:21pm per Dr. Ott's office Start: 05-01-2020 End: 05-04-2020 Hydrocodone-Acetaminophen 1 TABLET tablet Discontinued 1 {tbl} PO EVERY 6 HOURS NEEDED as needed for Pain 10 3 0 May 01, 2020 May 03, 2020 12:00am May 04, 2020 12:03am Contusion of rib on left side Contusion of left front wall of thorax, initial encounter Start: 05-01-2020 End: 05-04-2020 take 1 tablet by mouth every six hours as needed Hydrocodone-Acetaminophen Discontinued 1 TABLET PO EVERY 6 HOURS NEEDED 10 3 May 01, 2020 May 03, 2020 11:03pm acetaminophen 325 mg / oxyCODONE hydrochloride 5 mg oral tablet (20 sources) Opioid Agonist Start: 02-08-2025 End: 04-06-2025 Oxycodone-Acetaminophen 5-32 5 mg tablet Discontinued 1 {tbl} PO 3 TIMES DAILY NEEDED as needed for pain February 08, 2025 12:00am April 06, 2025 8:10am Start: 02-06-2024 End: 03-29-2024 Oxycodone-Acetaminophen (Per cocet) 5-325 mg tablet Discontinued 1 {tbl} PO [...] One tablet by mouth daily AMIODARONE HCL [id number] Vinny Root MD Start: 05-08-2015 End: 08-28-2015 take 1 tablet by mouth once daily AMIODARONE HCL 200 MG TABS One tablet by mouth daily AMIODARONE HCL [id number] Amber Palafox, JOSE ANGELC amLODIPine 10 mg / hydroCHLOROthiazide 25 mg / valsartan 320 mg oral tablet (20 sources) Thiazide Diuretic, Dihydropyridine Calcium Channel Rosaura, Angiotensin 2 Receptor Rosaura Start: 08-21-2017 End: 02-26-2018 Augjpimkdk-Yrztwkzoh-Mxhfvcv id (Exforge Hct) 10-320-25 mg tablet Discontinued 1 {tbl} PO daily 90 0 August 21, 2017 6:04pm February 26, 2018 11:10am Start: 10-21-2010 take 1 tablet by sarah th once daily EXFORGE HCT 10-320-25 MG TABS One tablet by mouth daily [id number] Amber Palafox, SHAY Start: 10-21-2010 EXFORGE HCT 10 -320-25 MG TABS 1/2 tablet twice daily [id number] Edwige Lentz NP Start: 10-21-2010 take 1 tablet by sarah th once daily, then take 5-160 tablets by mouth EXFORGE HCT 5-160-25 MG TABS One tablet by mouth daily [id number] Vinny Root MD aspirin 81 mg oral tablet (10 sources) Nonsteroidal Anti-inflammatory Drug Start: 11-17-2014 take 1 tablet by mouth once daily ASPIRIN 81 MG TABS One tablet by mouth daily ASPIRIN [id number] Vinny Root MD Start: 11-17-2014 End: 11-21-2016 take 1 tablet by mouth once daily ASPIRIN EC 81 MG TBEC One tablet by mouth daily ASPIRIN [id number] Sanaz Beverly RN Start: 10-21-2010 End: 11-17-2014 take 1 tablet by mouth once daily ASPIRIN 325 MG TABS One tablet by mouth daily ASPIRIN [id number] Vinny Root MD atenolol 25 mg oral tablet (4 sources) beta-Adrenergic Rosaura Start: 10-21-2010 End: 09-07-2012 take 1 tablet by mouth once daily ATENOLOL 25 MG TABS One tablet by mouth daily ATENOLOL [id number] Vinny Root MD atorvastatin 40 mg oral tablet (8 sources) HMG-CoA Reductase Inhibitor Start: 08-31-2012 End: 08-08-2013 LIPITOR 40 MG TABS One tablet by mouth daily-ON HOLD ATORVASTATIN CALCIUM [id number] Tena Roberts RN ciprofloxacin 500 mg oral tablet (19 sources) Quinolone Antimicrobial Start: 02-08-2025 End: 02-21-2025 take 1 tablet by mouth twice daily Ciprofloxacin Hcl 500 mg tablet Discontinued 500 mg PO TWICE A DAY February 08, 2025 12:00am February 21, 2025 10:25am Start: 12-04-2022 End: 02-17-2023 take 1 tablet by mouth twice daily Ciprofloxacin Hcl (Cipro) 500 mg tablet Discontinued 500 mg PO TWICE A DAY December 04, 2022 12:00am February 17, 2023 11:25am clopidogrel 75 mg oral tablet (4 sources) P2Y12 Platelet Inhibitor Start: 10-21-2010 End: 11-17-2014 take 1 tablet by mouth once daily PLAVIX 75 MG TABS One tablet by mouth daily CLOPIDOGREL BISULFATE [id number] Vinny Root MD diazePAM 5 mg oral tablet (20 sources) Benzodiazepine Start: 01-24-2019 End: 01-29-2019 take 1 tablet by mouth twice daily Diazepam 5 MG tablet Discontinued 5 mg PO TWICE A DAY 6 3 0 January 24, 2019 12:00am January 26, 2019 [...] 12:10am dicyclomine hydrochloride 20 mg oral tablet (14 sources) Anticholinergic Start: 12-04-2022 End: 02-17-2023 take 1 tablet by mouth twice daily Dicyclomine 20 mg tablet Discontinued 20 mg PO TWICE A DAY December 04, 2022 12:00am February 17, 2023 11:26am Start: 09-29-2013 End: 08-10-2015 DICYCLOMINE HCL 10 MG CAPS a s needed DICYCLOMINE HCL [id number] Amber Palafox PA-C diphenhydrAMINE hydrochloride 25 mg [...] 25 MG TABS PRN 2011 DIPHENHYDRAMINE HCL [id number] Amber Palafox PA-C Comment on above: Take 1 capsule by [facility] every 6 hours as needed. docusate sodium 100 mg oral capsule (12 sources) Start: 08-31-19 End: 05-01-20 20 take 1 capsule by mouth at bedtime Docusate Sodium 100 mg capsule Discontinued 100 mg PO AT BEDTIME August 31, 2018 1:00am November 11, 2019 3:45pm escitalopram 5 mg oral tablet (4 sources) Serotonin Reuptake Inhibitor Start: 10-22-19 End: 08-10-19 16 take 1 tablet by mouth once daily LEXAPRO 5 MG TABS One tablet by mouth daily ESCITALOPRAM OXALATE [id number] Amber Palafox PA-C estrogens, conjugated (chcf) 0.625 mg oral tablet (4 sources) Estrogen Start: 10-22-19 End: 08-12-19 12 take 1 tablet by mouth once daily PREMARIN 0.625 MG TABS One tablet by mouth daily ESTROGENS CONJUGATED [id number] Vinny Root MD glimepiride 4 mg oral tablet (20 sources) Sulfonylurea Start: 02-01-20 End: 03-07-20 25 take 0.5 tablet by mouth once daily at breakfast glimepiride (AMARYL) 4 mg tablet Take 0.5 tablets by mouth daily with breakfast. 90 tablet 3 05/06/2024 03/07/2025 Discontinued Start: 01-24-2022 End: 04-03-2025 take 2 mg by mouth once daily Glimepiride 4 mg tablet Discontinued 2 mg PO DAILY January 24, 2022 12:00am April 03, 2025 4:40pm DIABETES Start: 01-14-2022 End: 02-01-2024 take 1 [...] Comment on above: Take 1 tablet by sarha daily with breakfast. HANDICAP PLACARD (2 sources) Start: 2016 HANDICAP PLACARD Lifetime duration HANDICAP PLACARD Vinny Root MD hydroCHLOROthiazide 12.5 mg oral tablet (20 sources) Thiazide Diuretic Start: 2017 End: 2023 take 1 capsule by mouth once daily Hydrochlorothiazide 12.5 mg capsule Indications: Coronary artery disease involving [place] coronary artery of [place] heart without angina pectoris , Essential hypertension, benign Take 1 capsule by mouth once daily. 0 03/18/2018 12/24/2023 Discontinued (Discontinued by another Health Care Provider) Start: 02-26-2018 End: 12-17-2023 Hydrochlorothiazide 12.5 mg tablet Discontinued 0 .ROUTE .COMPLEX 90 3 November 25, 2023 9:24am December 14, 2023 11:42am TAKE 1 TABLET DAILY Comment on above: Take 1 capsule by mo [facility] once daily. iron sucrose iv piggyback [...] mg in NaCl 0.9% 100 mL (VENOFER) 24 hr metoprolol succinate 50 mg extended release oral tablet (20 sources) beta-Adrenergic Rosaura Start: 02-26-2018 End: 12-24-2023 Metoprolol Succinate 25 mg tablet extended release 24 hr Discontinued 0 .ROUTE .COMPLEX 90 November 25, 2023 9:24am December 14, 2023 11:42am TAKE 1 TABLET DAILY Start: 09-07-2012 End: 11-23-2024 take 1 tablet by mouth once daily Metoprolol Succinate 50 mg tablet extended release 24 hr Discontinued 50 mg PO DAILY 90 November 18, 2024 8:15am November 23, 2024 8:10am heart/BP Start: 09-07-2012 take 1 tablet by sarah th once daily TOPROL XL 25 MG [id number] One tablet by mouth daily METOPROLOL SUCCINATE [id number] Amber Palafox PA-C Start: 09-07-2012 take 1 tablet by sarah th twice daily METOPROLOL SUCCINATE ER 25 MG [id number] One tablet by mouth twice daily METOPROLOL SUCCINATE [id number] Sanaz Beverly RN Comment on above: Take 1 tablet by sarah th once daily. metroNIDAZOLE 500 mg oral tablet (10 sources) Nitroimidazole Antimicrobial Start: End: take 1 tablet by mouth three times daily Metronidazole 500 mg tablet Discontinued 500 mg PO THREE TIMES A DAY 30 December 04, 2022 12:00am February 17, 2023 11:26am nitrofurantoin, macrocrystals 25 mg / nitrofurantoin, monohydrate 75 mg oral capsule (19 sources) Nitrofuran Antibacterial Start: End: take 1 capsule by mouth every twelve hours Nitrofurantoin Monohyd/M-Cryst 100 mg capsule Discontinued 100 mg PO EVERY 12 HOURS 10 June 19, 2023 1:00am December 14, 2023 11:38am Start: 04-02-2017 End: 02-26-2018 take 1 capsule by mouth twice daily Nitrofurantoin Monohyd/M-Cryst 100 MG capsule Discontinued 100 mg PO TWICE A DAY 13 April 02, 2017 12:00am February 26, 2018 10:57am ondansetron 4 mg disintegrating oral tablet (10 sources) Serotonin-3 Receptor Antagonist Start: 12-04-2022 End: 02-17-2023 take 1 tablet by mouth every eight hours as needed for nausea Ondansetron 4 mg tablet,disintegrating Discontinued 4 mg PO EVERY 8 HOURS NEEDED as needed for Nausea 10 0 December 04, 2022 12:00am February 17, 2023 11:26am polysaccharide iron complex 150 mg oral capsule (2 sources) Start: 11-21-2016 take 1 tablet by mouth twice daily FERREX 150 150 MG CAPS One tablet by mouth twice daily POLYSACCHARIDE IRON COMPLEX [id number] Vinny Root MD microencapsulated potassium chloride 20 meq extended release oral tablet (20 sources) Start: 12-16-2023 End: 11-21-2024 take 2 tablets by mouth once daily at mealtime Potassium Chloride 20 mEq Tablet,Er Particles/Crystals Discontinued 40 meq PO DAILY WITH MEALS 60 30 2 March 29, 2024 12:00am November 21, 2024 2:59pm Start: 12-16-2023 End: 03-29-2024 take 1 tablet by mouth once daily Potassium Chloride 20 mEq Tablet,Er Particles/Crystals Discontinued 20 meq PO DAILY 30 December 16, 2023 12:00am March 29, 2024 11:30am Start: 06-16-2017 End: 02-26-2018 take 1 tablet by mouth once daily Potassium Chloride 20 mEq tablet,ER particles/crystals Discontinued 20 meq PO DAILY 90 3 November 02, 2017 5:00pm February 26, 2018 11:11am Start: 10-25-2013 take 1 tablet by sarah th once daily KLOR-CON M20 20 MEQ CR-TABS One tablet by mouth daily POTASSIUM CHLORIDE JOHANNY CR [id number] Vinny Root MD Start: 10-10-2013 End: 06-16-2017 take 1 tablet by mouth once daily Potassium Chloride 20 MEQ tablet Discontinued 20 meq PO DAILY 30 October 10, 2013 12:00am June 16, 2017 5:00pm rivaroxaban 20 mg oral tablet (20 sources) [...] mg by mouth daily with dinner. simvastatin 20 mg oral tablet (20 sources) HMG-CoA Reductase Inhibitor Start: 08-12-2011 take 1 tablet by mouth once daily SIMVASTATIN 40 MG TABS One tablet by mouth daily every night SIMVASTATIN [id number] Vinny Root MD Start: 10-21-2010 End: 12-22-2024 Simvastatin 20 mg tablet Dis continued 0 .ROUTE .COMPLEX 90 3 August 19, 2023 11:38am December 14, 2023 11:42am TAKE 1 TABLET AT BEDTIME Comment on above: Take 20 mg by mouth daily at bedtime. tiZANidine 4 mg oral tablet (20 sources) [...] TABS One tablet by mouth daily VALSARTAN [id number] Keila Dhillon RN Problems Active Problems Problem [...] Onset: 8 04-09-2021 Chronic Chronic kidney disease (2 sources) Chronic kidney disease; Translations: [Stage 3b chronic kidney disease (HCC)] Onset: Conduction disorders (20 sources) Cardiac pacemaker in situ; Translations: [Presence of cardiac pacemaker] Onset: 5 04-30-2015 Chronic Comment on above: PPM generator change on 04/11/2024. Congestive heart failure; nonhypertensive (20 sources) Chronic diastolic heart failure; Translations: [Chronic diastolic (congestive) heart failure] Onset: 4 12-24-2023 Chronic Coronary atherosclerosis and other heart disease (20 sources) Atherosclerotic heart disease of [place] coronary artery without angina pectoris; Translations: [Coronary arteriosclerosis in [place] artery] Onset: 1 05-15-2016 Chronic Deficiency and other anemia (20 sources) Iron deficiency anemia; Translations: [Iron deficiency anemia, unspecified] Onset: 7 08-19-2016 Episodic Deficiency and other anemia (12 sources) Anemia; Translations: [Anemia, unspecified] Onset: 5 12-15-2023 Episodic Deficiency and other anemia (1 source) Anemia, unspecified; Translations: [Anemia, unspecified type] Onset: 5 Episodic Diabetes mellitus with complications (20 sources) [...] [Benign essential hypertension] Onset: 1 10-21-2010 Chronic Fracture of neck of femur (hip) (6 sources) Closed fracture of hip; Translations: [Fracture of unspecified part of neck of left femur, initial encounter for closed fracture] Onset: 5 04-04-2025 Episodic Genitourinary symptoms and ill-defined conditions (2 sources) [...] and colitis, unspecified] Episodic Malaise and fatigue (20 sources) Malaise and fatigue; Translations: [Fatigue] Onset: 6 01-21-2016 Episodic Mood disorders (20 sources) Depressive disorder; Translations: [Depression, unspecified depression type] Onset: 1 Chronic Mood disorders (1 source) Mood disorders; Translations: [Depression, unspecified depression type] Onset: 5 Neoplasms of unspecified nature or uncertain behavior (20 sources) Monoclonal gammopathy of uncertain significance; Translations: [Monoclonal gammopathy] Onset: Chronic Noninfectious gastroenteritis (10 sources) Colitis; Translations: [Noninfective gastroenteritis and colitis, unspecified] 12-12-2022 Episodic Osteoarthritis (1 source) Arthritis of knee; Translations: [Unilateral primary osteoarthritis, unspecified knee] Chronic Other aftercare (2 sources) Post-discharge follow-up; Translations: [Encounter for follow-up examination after completed treatment for conditions other than malignant neoplasm] Episodic Other aftercare (1 source) Encounter for follow-up examination after completed treatment for conditions other than malignant neoplasm; Translations: [Hospital discharge follow-up] Onset: Episodic Other bone disease and musculoskeletal deformities (1 source) Disorder of bone, unspecified; Translations: [Disorder of bone and cartilage, unspecified] 04-01-2024 Episodic Other connective tissue disease (4 sources) History of total hip arthroplasty; Translations: [Presence of unspecified artificial hip joint] 04-05-2025 Chronic Other connective tissue disease (1 source) Presence of unspecified artificial hip joint; Translations: [Presence of unspecified artificial hip joint] Onset: Chronic Other fractures (11 sources) Fracture of twelfth thoracic vertebra; Translations: [Wedge compression fracture of T11-T12 vertebra, initial encounter for closed fracture] 08-15-2022 Episodic Other fractures (1 source) Compression fracture of thoracic vertebra; Translations: [Wedge compression fracture of unspecified thoracic vertebra, initial encounter for closed fracture] 04-01-2024 Episodic Other fractures (7 sources) Compression fracture of thoracic spine; Translations: [Wedge compression fracture of unspecified thoracic vertebra, initial encounter for closed fracture] 02-06-2024 Episodic Other gastrointestinal disorders (1 source) Constipation; Translations: [Constipation, unspecified] 04-28-2023 Episodic Other gastrointestinal disorders (10 sources) Dysphagia; Translations: [Dysphagia, unspecified] 02-10-2025 Episodic Other gastrointestinal disorders (4 sources) Occult blood in stools; Translations: [Other fecal abnormalities] Onset: 5 02-22-2025 Episodic Other gastrointestinal disorders (1 source) Other fecal abnormalities; Translations: [Positive fecal occult blood test] Onset: 5 Episodic Other gastrointestinal disorders (1 source) Dysphagia, unspecified; Translations: [Dysphagia, unspecified] Onset: 5 Episodic Other hereditary and degenerative nervous system conditions (20 sources) Essential tremor; Translations: [Essential tremor] Onset: 2 Chronic Other injuries and conditions due to external causes (7 sources) Other specified injuries of thorax, initial encounter; Translations: [Contusion of rib on left side] 05-02-2020 Episodic Other lower respiratory disease (14 sources) Dyspnea; Translations: [Cough] Onset: 6 01-21-2016 Episodic Other lower respiratory disease (1 source) Hypoxemia; Translations: [Hypoxemia] 03-25-2024 Episodic Other lower respiratory disease (3 sources) Dyspnea on exertion; Translations: [Other forms of dyspnea] 02-06-2025 Episodic Other lower respiratory disease (12 sources) Respiratory insufficiency; Translations: [Other abnormalities of breathing] 02-08-2025 Episodic Other lower respiratory disease (1 source) Other forms of dyspnea; Translations: [DELONG (dyspnea on exertion)] Onset: 5 Episodic Other lower respiratory disease (1 source) Other abnormalities of breathing; Translations: [Other abnormalities of breathing] Onset: 5 Episodic Other nutritional; endocrine; and metabolic disorders (12 sources) Body mass index 25-29 - overweight; Translations: [Overweight] 02-08-2025 Episodic Other nutritional; endocrine; and metabolic disorders (1 source) Overweight; Translations: [Overweight] Onset: 5 Episodic Pulmonary heart disease (20 sources) Pulmonary arterial hypertension; Translations: [Secondary pulmonary arterial hypertension] Onset: 3 02-25-2018 Chronic Residual codes; unclassified (1 source) Bilateral lower limb edema; Translations: [Localized edema] 02-01-2024 Episodic Residual codes; unclassified (7 sources) H/O Spinal surgery; Translations: [Other specified postprocedural states] 04-06-2024 Episodic Respiratory failure; insufficiency; arrest (adult) (14 sources) Acute hypoxemic respiratory failure; Translations: [Acute respiratory failure with hypoxia] 12-15-2023 Episodic Spondylosis; intervertebral disc disorders; other back problems (20 sources) Backache; Translations: [Dorsalgia, unspecified] Onset: 4 11-08-2013 Episodic Superficial injury; contusion (5 sources) Contusion of rib; Translations: [Contusion of left front wall of thorax, initial encounter] 05-02-2020 Episodic Thyroid disorders (20 sources) Acquired hypothyroidism; Translations: [Hypothyroidism] Onset: 6 08-14-2015 Chronic Unclassified (6 sources) Body mass index (BMI) 33.0-33.9, adult; Translations: [Body mass index (BMI) 34.0-34.9, adult] Onset: 4 05-26-2017 Chronic Unclassified (17 sources) Blood chemistry abnormal; Translations: [Raised cardiac enzyme or marker] Onset: 3 Resolved: 6 05-03-2013 Episodic Unclassified (2 sources) Placement of stent in coronary artery ; Translations: [Presence of coronary angioplasty implant and graft] Onset: 6 05-15-2016 Urinary tract infections (20 sources) Bacterial urinary infection; Translations: [Urinary tract [...] 5 04-30-2015 Episodic Deficiency and other anemia (1 source) [...] 05-15-2016 Episodic Other aftercare (2 sources) Other termite control representative (current) drug therapy; Translations: [Other termite control representative (current) drug therapy] Onset: 5 02-13-2015 Episodic Other and unspecified benign neoplasm (20 [...] Onset: 7 Resolved: 7 12-01-2016 Chronic Other nervous system disorders (2 sources) Paresthesia of upper limb; Translations: [Paresthesia of skin] Onset: 5 04-30-2015 Episodic Other nervous system disorders (20 sources) Tremor; Translations: [Tremor, unspecified] Onset: 2 01-14-2022 Episodic Pathological fracture (20 sources) Osteoporosis; Translations: [Age-related osteoporosis with current pathological fracture, unspecified site, initial encounter for fracture] Onset: 2 09-09-2021 Episodic Unclassified (4 sources) FH: Hypertension; Translations: [Family history of ischemic heart disease and other diseases of the circulatory system] Resolved: 6 04-26-2014 Episodic Unclassified (4 sources) Long-term drug therapy; Translations: [Long-term (current) use of other medications] Onset: 2 Resolved: 5 08-06-2011 Results Test Name Value Interpretation Reference Range Facility Bedside Glucoseon 04-06-2025 FINGERSTICK GLU 227 mg/dL High 74-[address] [facility] Comment on above: Result Comment: CRISTIAN GEMENT OF PATIENT CARE PER NURSING PROTOCOL Performed By: #### L 501.080 #### [facility] [address] [place], [address] FINGERSTICK GLU 118 mg/dL High -[address] [facility] Comment on above: Result Comment: CRISTIAN GEMENT OF PATIENT CARE PER NURSING PROTOCOL Performed By: #### L 503.7505, L503.6005, L500.4050, L501.4021, L100.0100 #### [facility] [address] [place], [address] [facility] deOrdered By: Gunnar Mullen on 04-06-2025 Glucose [Mass/Vol] 227 mg/dL High 74-106 [facility] Comment on above: MANAGEMENT OF PATIEN T CARE PER NURSING PROTOCOL Absolute lymphocyte countOrd ered By: Gunnar Mullen on 04-05-2025 Lymphocytes Auto (Unsp spec) [#/Vol] 0.81 10*3/uL Low 0.83-4.[address] [facility] Absolute neutrophil countOrd ered By: Gunnar Mullen on 04-05-2025 Neutrophils (Bld) [#/Vol] 13.0 10*3/uL High 2.0-7.[address] [facility] Anion gap in Serum or Plasma Ordered By: Gunnar Mullen on 04-05-2025 Anion gap [Moles/Vol] 11 mmol/L 5-15 [facility] Automated lymphocyte count a s percentage of total leukocytesOrdered By: Gunnar Mullen on 04-05-2025 Lymphocytes/100 WBC Auto (Unsp spec) 5.5 % Low 19-[address] [facility] BUN/creatinine ratioOrdered By: Gunnar Mullen on 04-05-2025 Urea nitrogen/Creatinine [Mass ratio] 16.6 mg/mg - [facility] Basic Metabolic Profile (BMP )on 04-05-2025 BUN/CRE 16.6 RATIO Normal - [facility] Comment on above: Performed By: #### L 500.2500, L100.0100 #### [facility] [address] [place], [address] Calcium [Mass/Vol] 8.8 mg/dL Normal 7.6-11.0 [facility] Comment on above: Performed By: #### L 500.2500, L100.0100 #### [facility] [address] [place], [address] Chloride [Moles/Vol] 100 mmol/L Normal 98-108 [facility] Comment on above: Performed By: #### L 500.2500, L100.0100 #### [facility] [address] [place], [address] CO2 [Moles/Vol] 21.1 mmol/L Normal 21.0-32.[address] [facility] Comment on above: Performed By: #### L 500.2500, L100.0100 #### [facility] [address] [place], [address] Creatinine [Mass/Vol] 1.11 mg/dL Normal 0.70-1.20 [facility] Comment on above: Performed By: #### L 500.2500, L100.0100 #### [facility] [address] [place], [address] ECRCL 43.39 ml/min Low 50-[address] [facility] Comment on above: Performed By: #### L 500.2500, L100.0100 #### [facility] [address] [place], [address] GAP 11 Normal 5-[address] [facility] Comment on above: Performed By: #### L 500.2500, L100.0100 #### [facility] [address] [place], [address] GFR/1.73 sq M.predicted among non-blacks MDRD (S/P/Bld) [Vol rate/Area] 49 mL/min/{1.73_m2} Low >[address] [facility] Comment on above: Result Comment: mL/m in/1.73m2 CKD-EPI Creatinine Equation (2020) Performed By: #### L 500.2500, L100.0100 #### [facility] [address] [place], [address] Glucose [Mass/Vol] 182 mg/dL High 70-99 [facility] Comment on above: Performed By: #### L 500.2500, L100.0100 #### [facility] [address] [place], [address] Potassium [Moles/Vol] 4.5 mmol/L Normal 3.3-5.1 [facility] Comment on above: Performed By: #### L 500.2500, L100.0100 #### [facility] [address] [place], [address] Sodium [Moles/Vol] 132 mmol/L Low 133-145 [facility] Comment on above: Performed By: #### L 500.2500, L100.0100 #### [facility] [address] [place], [address] Urea nitrogen [Mass/Vol] 18 mg/dL Normal 4-[address] [facility] Comment on above: Performed By: #### L 500.2500, L100.0100 #### [facility] [address] [place], [address] Basophil percentageOrdered B y: Gunnar Mullen on 04-05-2025 Basophils/100 WBC (Bld) 0.1 % 0-1 [facility] Bedside Glucoseon 04-05-2025 FINGERSTICK GLU 165 mg/dL High 74-[address] [facility] Comment on above: Result Comment: CRISTIAN GEMENT OF PATIENT CARE PER NURSING PROTOCOL Performed By: #### L 500.2500, L100.0100 #### [facility] [address] [place], [address] FINGERSTICK GLU 181 mg/dL High -[address] [facility] Comment on above: Result Comment: CRISTIAN GEMENT OF PATIENT CARE PER NURSING PROTOCOL Performed By: #### L 503.7505, L503.6005, L500.4050, L501.4021, L100.0100 #### [facility] [address] [place], [address] FINGERSTICK GLU 256 mg/dL High [address] [place] [address] Comment on above: Result Comment: CRISTIAN GEMENT OF PATIENT CARE PER NURSING PROTOCOL Performed By: #### L 500.2500, L100.0100 #### [facility] [address] [place], [address] FINGERSTICK GLU 157 mg/dL High [address] [place] [address] Comment on above: Result Comment: CRISTIAN GEMENT OF PATIENT CARE PER NURSING PROTOCOL Performed By: #### L 501.080 #### [facility] [address] [place], [address] CBC W/Diff, Automatedon 03-14 Anisocytosis Ql (Bld) RARE Normal [facility] Comment on above: Performed By: #### L 500.2500, L100.0100 #### [facility] [address] [place], [address] Carbon dioxide, total [Moles /volume] in Central venous bloodOrdered By: Gunnar Mullen on 04-05-2025 CO2 [Moles/Vol] 21.1 mmol/L 21.0-32.[address] [facility] Chloride assayOrdered By: Louis Mullen on 04-05-2025 Chloride [Moles/Vol] 100 mmol/L 98-108 [facility] Eosinophil percentageOrdered By: Gunnar Mullen on 04-05-2025 Eosinophils/100 WBC (Bld) 0.0 % 0-[address] [facility] Erythrocyte distribution wid th ratioOrdered By: Gunnar Mullen on 04-05-2025 Erythrocyte distribution width (RBC) [Ratio] 20.4 % High 11.6-14.[address] [facility] Erythrocyte distribution wid th standard deviationOrdered By: Gunnar Mullen on 04-05-2025 Erythrocyte distribution width (RBC) [Ratio] 67.8 fl High 35.1-43.[address] [facility] Glomerular filtration rate ( GFR) estimation/1.73 sq m using serum, plasma, or whole bOrdered By: Gunnar Mullen on 04-05-2025 GFR/1.73 sq M.predicted among non-blacks MDRD (S/P/Bld) [Vol rate/Area] 49 mL/min/{1.73_m2} Low >[address] [facility] Comment on above: mL/min/1.73m2 CKD-EP I Creatinine Equation (2020) Hematocrit Auto (Bld) [Volum e fraction]Ordered By: Gunnar Mullen on 04-05-2025 Hematocrit (Bld) [Volume fraction] 31.5 % Low 37-[address] [facility] Hemoglobin measurementOrdere d By: Gunnar Mullen on 04-05-2025 Hemoglobin (Bld) [Mass/Vol] 10.2 g/dL Low 12.0-15.[address] [facility] Immature granulocytes/100 WB C Auto (Bld)Ordered By: Gunnar Mullen on 04-05-2025 Immature granulocytes/100 WBC (Bld) 0.400 % 0.0-0.[address] [facility] Comment on above: IG% - Immature Granu locytes (promyelocytes, myelocytes and metamyelocytes) > 1% indicates that a LEFT SHIFT is Present. Laboratory - Hematology and Cell countsOrdered By: Gunnar Mullen on 04-05-2025 Anisocytosis Ql (Bld) RARE [facility] MCV (mean corpuscular volume ) determinationOrdered By: Gunnar Mullen on 04-05-2025 MCV (RBC) [Entitic vol] 92.4 fL 81-99 [facility] Mean corpuscular hemoglobin (MCH) determinationOrdered By: Gunnar Mullen on 04-05-2025 MCH (RBC) [Entitic mass] 29.9 pg 27.0-32.[address] [facility] Mean corpuscular hemoglobin concentration (MCHC) determinationOrdered By: Gunnar Mullen on 04-05-2025 MCHC (RBC) [Mass/Vol] 32.4 g/dL 32-36 [facility] Mean platelet volume determi nationOrdered By: Gunnar Mullen on 04-05-2025 Platelet mean volume (Bld) [Entitic vol] 10.3 fL 6.2-12.[address] [facility] Monocyte percentageOrdered B y: Gunnar Mullen on 04-05-2025 Monocytes/100 WBC (Bld) 5.6 % 0-10 [facility] Neutrophil percentageOrdered By: Gunnar Mullen on 04-05-2025 Neutrophils/100 WBC (Bld) 88.4 % High 47-[address] [facility] Nucleated red blood cell per centageOrdered By: Gunnar Mullen on 04-05-2025 Nucleated RBC/100 WBC (Bld) [Ratio] 0 % 0-[address] [facility] Platelet countOrdered By: Louis Mullen on 04-05-2025 Platelets (Bld) [#/Vol] 201 10*3/uL 150-[address] [facility] Potassium measurement (mass/ volume)Ordered By: Gunnar Mullen on 04-05-2025 Potassium (Unsp spec) [Mass/Vol] 4.5 mmol/L 3.3-5.[address] [facility] RBC Auto (Bld) [#/Vol]Ordere d By: Gunnar Mullen on 04-05-2025 RBC (Bld) [#/Vol] 3.41 10*6/uL Low 4.2-5.4 [facility] Serum creatinine measurement (mass/volume)Ordered By: Gunnar Mullen on 04-05-2025 Creatinine [Mass/Vol] 1.11 mg/dL 0.70-1.20 [facility] Serum glucose measurement (m ass/volume)Ordered By: Gunnar Mullen on 04-05-2025 Glucose [Mass/Vol] 182 mg/dL High 70-99 [facility] Serum or plasma calcium fernando urement (mass/volume)Ordered By: Gunnar Mullen on 04-05-2025 Calcium [Mass/Vol] 8.8 mg/dL 7.6-11.0 [facility] Serum or plasma urea nitroge n measurement (mass/volume)Ordered By: Gunnar Mullen on 04-05-2025 Urea nitrogen [Mass/Vol] 18 mg/dL 4-[address] [facility] Sodium levelOrdered By: Gunnar Mullen on 04-05-2025 Sodium [Moles/Vol] 132 mmol/L Low 133-145 [facility] White blood cell (WBC) count Ordered By: Gunnar Mullen on 04-05-2025 WBC (Bld) [#/Vol] 14.7 10*3/uL High 4.4-11.0 [facility] Basic Metabolic Profile (BMP )on 04-04-2025 BUN/CRE 13.5 RATIO Normal 10-[address] [facility] Comment on above: Performed By: #### L 500.2500, L100.0100 #### [facility] [address] [place], [address] Calcium [Mass/Vol] 8.9 mg/dL Normal 7.6-11.0 [facility] Comment on above: Performed By: #### L 500.2500, L100.0100 #### [facility] [address] [place], [address] Chloride [Moles/Vol] 103 mmol/L Normal 98-108 [facility] Comment on above: Performed By: #### L 500.2500, L100.0100 #### [facility] [address] [place], [address] CO2 [Moles/Vol] 20.0 mmol/L Low 21.0-32.[address] [facility] Comment on above: Performed By: #### L 500.2500, L100.0100 #### [facility] [address] [place], [address] Creatinine [Mass/Vol] 1.34 mg/dL High 0.70-1.20 [facility] Comment on above: Performed By: #### L 500.2500, L100.0100 #### [facility] [address] [place], [address] ECRCL 35.43 ml/min Low 50-[address] [facility] Comment on above: Performed By: #### L 500.2500, L100.0100 #### [facility] [address] [place], [address] GAP 13 Normal 5-[address] [facility] Comment on above: Performed By: #### L 500.2500, L100.0100 #### [facility] [address] [place], [address] GFR/1.73 sq M.predicted among non-blacks MDRD (S/P/Bld) [Vol rate/Area] 39 mL/min/{1.73_m2} Low >[address] [facility] Comment on above: Result Comment: mL/m in/1.73m2 CKD-EPI Creatinine Equation (2020) Performed By: #### L 500.2500, L100.0100 #### [facility] [address] [place], [address] Glucose [Mass/Vol] 118 mg/dL High 70-99 [facility] Comment on above: Performed By: #### L 500.2500, L100.0100 #### [facility] [address] [place], [address] Potassium [Moles/Vol] 4.5 mmol/L Normal 3.3-5.1 [facility] Comment on above: Performed By: #### L 500.2500, L100.0100 #### [facility] [address] [place], [address] Sodium [Moles/Vol] 136 mmol/L Normal 133-145 [facility] Comment on above: Performed By: #### L 500.2500, L100.0100 #### [facility] [address] [place], [address] Urea nitrogen [Mass/Vol] 18 mg/dL Normal 4-[address] [facility] Comment on above: Performed By: #### L 500.2500, L100.0100 #### [facility] [address] [place], [address] Bedside Glucoseon 04-04-2025 FINGERSTICK GLU 213 mg/dL High 74-[address] [facility] Comment on above: Result Comment: CRISTIAN GEMENT OF PATIENT CARE PER NURSING PROTOCOL Performed By: #### L 503.7505, L503.6005, L500.4050, L501.4021, L100.0100 #### [facility] [address] [place], [address] FINGERSTICK GLU 171 mg/dL High 74-[address] [facility] Comment on above: Result Comment: CRISTIAN GEMENT OF PATIENT CARE PER NURSING PROTOCOL Performed By: #### L 501.080 #### [facility] [address] [place], [address] FINGERSTICK GLU 137 mg/dL High 74-[address] [facility] Comment on above: Result Comment: CRISTIAN GEMENT OF PATIENT CARE PER NURSING PROTOCOL Performed By: #### L 500.2500, L100.0100 #### [facility] [address] [place], [address] FINGERSTICK GLU 123 mg/dL High 74-[address] [facility] Comment on above: Result Comment: CRISTIAN GEMENT OF PATIENT CARE PER NURSING PROTOCOL Performed By: #### L 500.2500, L100.0100 #### [facility] [address] [place], [address] CBC W/Diff, Automatedon - Anisocytosis Ql (Bld) RARE Normal [facility] Comment on above: Performed By: #### L 500.2500, L100.0100 #### [facility] [address] [place], [address] Consultation - Orthopedicson 04-04-2025 Consultation - Orthopedics [facility] Medical Records Department [address] [place] [address] Consultation - Orthopedics 04/04/25 1444 MR#: [id number] Acct: [id number] Name: GUDELIA GUPTA Rep #: [id number] : 1940 84 From: Adonis Rodriguez MD PCP: Dr. Victor M Rocha MD Status:ADM IN Location: [facility] [place] [id number] HPI Consult Data Date of Consult: 04/04/25 HPI Narrative HPI Narrative: GUDELIA GUPTA, is a 84 F who presents after falling at home yesterday April 03, 2025. She was going up stairs. At the top she caught her foot falling onto the floor. She landed on her left side. She did not fall down the stairs. She was not able to walk. She was brought to the hospital. She was diagnosed with a displaced femoral neck fracture. Admitted to the medical service. Orthopedics appropriately consulted. She denies dizziness head injury loss of consciousness. [facility] Medical History Overweight (BMI 25.0-29.9) Coronary artery disease Iron deficiency anemia History of non-ST elevation myocardial infarction (NSTEMI) (2013) Longstanding persistent atrial fibrillation Essential (primary) hypertension Anxiety Hypothyroidism Hyperlipidemia Secondary pulmonary arterial hypertension Atherosclerosis of coronary artery of [place] heart without angina pectoris Paroxysmal atrial fibrillation Paroxysmal atrial flutter Sick sinus syndrome Home Medications ???Medication ???Instructions ???Recorded ???Last Taken ???Type buspirone 15 mg tablet 15 mg PO TID ANXIETY 06/02/1303/14 History omeprazole 40 mg capsule,delayed 40 mg PO DAILY ACID REFLUX 3 04/02/25 History release nitroglycerin 0.4 mg sublingual 0.4 mg sublingual Q5M PRN CHEST Unknown History tablet PAIN amitriptyline 50 mg tablet 50 mg PO QHS DEPRESSION 02/17/23 0 04/02/25 History empagliflozin 10 mg tablet 10 mg PO DAILY DIABETES 02/17/23 0 04/03/25 History (Jardiance) ketotifen fumarate 0.025 % (0.035 1 drp ophthalmic (eye) BID PRN 04/02/25 History %) eye drops (Alaway) ITCHING/ALLERGIES levothyroxine 100 mcg tablet 100 mcg PO DAILY THYROID 12/14/23 04/04/25 History (Synthroid) furosemide 40 mg tablet (Lasix) 40 mg PO DAILY water pill #60 tabs 12/17/23 04/03/25 Rx rivaroxaban 20 mg tablet (Xarelto) 20 mg PO QPM #90 tabs 10/06/24 0 04/02/25 Rx losartan 100 mg tablet 100 mg PO DAILY blood pressure #90 11/18/24 04/03/25 Rx tabs potassium chloride 20 mEq 40 meq (2 x 20 mEq) PO QDAY #90 04/02/25 Rx tablet,extended release(part/cryst) tabs metoprolol succinate 50 mg 50 mg PO DAILY heart/BP #90 tabs 0 11/23/24 04/04/25 Rx tablet,extended release 24 hr simvastatin 20 mg tablet 20 mg PO QHS CHOLESTEROL #90 tabs 12/22/24 04/02/25 Rx amlodipine 10 mg tablet 10 mg PO DAILY 02/08/25 04/02/25 H istory ferrous sulfate 325 mg (65 mg 65 mg PO DAILY 02/08/25 04/03/25 H istory iron) tablet (FeroSul) oxycodone-acetaminop hen 5 mg-325 1 tab PO TID PRN PRN pain 02/08/25 04/03/25 History mg tablet ascorbic acid (vitamin C) 500 mg 500 mg PO BID 04/03/25 04/03/25 Hi story tablet (Vitamin C) Allergy/AdvReac Type Severity Reaction Status Date / Time poison fany extract (Poison Allergy Rash Verified 04/03/25 13:18 Fany Extract) Sulfa (Sulfonamide Allergy Hives Verified 04/03/25 13:18 Antibiotics) Family History Mother Cancer Father Cancer Brother CAD (coronary artery disease) Sister CAD (coronary artery disease) Surgical History S/P kyphoplasty History of tubal ligation History of appendectomy History of hysterectomy History of left heart catheterization (10/09/13) History of coronary artery stent placement (09/2010) Hx of atrioventricular node ablation (03/31/16) Presence of cardiac pacemaker (04/26/15) Social History household members: spouse Smoking Status: Former smoker how long ago did patient quit smokin's alcohol intake: never substance use type: does not use caffeine: Yes Type: coffee Number of servings: 3 ROS ROS Narrative Patient denies any recent changes to eyes ears nose or throat heart or lungs bowel or bladder. Currently having significant left hip pain with moving from fracture. Vital Signs Vital Signs Vital Signs: 04/03/25 15:09 04/03/25 15:13 04/03/25 16:30 Temperature 98 F Temperature Source Pulse Rate 83 83 Respiratory Rate 20 H 20 H Respiratory Effort Respiratory Depth Respiratory Pattern Blood Pressure 96/83 H Blood Pressure Mean 87 Blood Pressure Source Blood Pressure Position Blood Pressure Location Pu (more content not included)... Normal [facility] Electrocardiogram reportOrde red By: Vinny Root on 04-04-2025 EKG study [facility] Cardiovascular Services [address] [place] [address] 12 Lead EKG 04/03/25 1433 MR#: [id number] Acct: [id number] Name: GUDELIA GUPTA Rep #:[id number] : 1940 84 From: Vinny Root MD Attending Dr: Dr. Gunnar Mullen DO Status: ADM IN Ordering Dr: Corwin Shearer DO Date: Location: MS3 Sex: F C Admitted: 04/03/25 Test Reason : CP Blood Pressure : */* mmHG Vent. Rate : 80 BPM Atrial Rate : 80 BPM P-R Int : * ms QRS Dur : 168 ms QT Int : 462 ms P-R-T Axes : * 270 93 degrees QTcB Int : 532 ms Ventricular-paced rhythm Abnormal ECG Confirmed by IVETT MORRISON, VINNY ([id number]), mapping editor MOISES LEW ([id number]) on 57:29:35 AM Referred By: Confirmed By: VINNY ROOT MD 04/04/25 0729 Date _ Vinny Root MD CC: Dr. Gunnar Mullen DO; Dr. Victor M Rocha MD; Dr. Corwin Shearer DO ~ Signed [facility] Work Phone: Hip Min 2 Views (Portable)on 04-04-2025 Hip Min 2 Views (Portable) [facility] Imaging Services [address] [place] [id number] Hip Min 2 Views (Portable) MR#: [id number] Acct: [id number] Name: GUDELIA GUPTA Rep #: [id number] : 1940 F 84 From: Inga Sandoval MD PCP: Dr. Victor M Rocha MD Status: ADM IN Study: Hip Min 2 Views (Portable) Date of Exam: 04/04 Exam# [id number] Ordering Dr: Adonis Rodriguez MD PROCEDURE: HIP MIN 2 VIEWS (PORTABLE) 04/04/2025 REASON FOR EXAM: POST OP TECHNIQUE: Procedure Code: RADH_P Modality: DX Procedure: HIP MIN 2 VIEWS (PORTABLE) Laterality: Left COMPARISON: None. FINDINGS: Bones: No acute bony abnormalities. No periprosthetic loosening. Joints: Status post total left hip replacement. Soft tissues: Soft tissue swelling. RAD/Hip Min 2 Views (Portable) IMPRESSION: Status post total left hip replacement. Normal alignment without loosening. Reading Location: [facility] CC: Dr. Victor M Rocha MD; Dr. Adonis Rodriguez MD Job Checker: Signed Normal [facility] MR/POSTOP.CHRISTINEon 04-04-2025 MR/POSTOP.ANE [facility] Medical Records Department [address] [place] [address] Anesthesia Postop Eval I 04/04/25 1520 MR#: [id number] Acct: [id number] Name: GUDELIA GUPTA Rep #: [id number] : 1940 84 From: Dwight Berg CRNA PCP: Dr. Victor M Rocha MD Status:ADM IN Y Race: C Location: [facility] [id number] Anesthesia: Postop Eval I Current Vital Signs Temperature: 99.3 F Pulse Rate: 80 Blood Pressure: 111/58 Respiratory Rate: 16 Pulse Ox: 92 Assessment Airway patent: Yes Spontaneous unlabored respirations: Yes nausea: No Vomiting: No Anesthesia Complication: No Fluid Hydration Crystalloid volume administer (ml): 1,300 Total IV fluid infused: 1,300 Progress Note Anesthesia document: Postop Eval 1 completed: Yes 04/04/25 1520 Date Dwight Berg INDUSTRIAL ENGINEERING INTERN Cosigner Signature: Date CC: Signed Normal [facility] MR/[id number] 04-04-2025 [facility] Medical Records Department [address] [place] [address] Anesthesia Postop Eval II 04/04/25 1753 MR#: [id number] Acct: [id number] Name: GUDELIA GUPTA Rep #: [id number] : 1940 84 From: Niranjan Turner MD PCP: Dr. Victor M Rocha MD Status:ADM IN Y Race: C Location: [facility] Anesthesia Postop Eval I Sum Postop Eval Completion status Anesthesia document: Postop Eval 1 completed: Yes Anesthesia Postop Eval I Summary Anesthesia Postop Eval I Summary: Anesthesia Postop Eval I: Assessment Summary Airway patent Yes 04/04/25 15:20 INDUSTRIAL ENGINEERING INTERN.TNES Spontaneous unlabored Yes 04/04/25 15:20 INDUSTRIAL ENGINEERING INTERN.TNES respirations Mental status nausea No 04/04/25 15:20 INDUSTRIAL ENGINEERING INTERN.TNES Vomiting No 04/04/25 15:20 INDUSTRIAL ENGINEERING INTERN.TNES Anesthesia Postop Eval I: Fluid Summary Crystalloid volume administer 1,300 04/04/25 15:20 INDUSTRIAL ENGINEERING INTERN.TNES (ml) Colloids volume administered ( ml) Blood Product volume administered (ml) Total IV fluid infused 1,300 04/04/25 15:20 INDUSTRIAL ENGINEERING INTERN.TNES Anesthesia Postop Eval I: Summary Notes Anesthesia Complication No 04/04/25 15:20 INDUSTRIAL ENGINEERING INTERN.TNES Anesthesia Complication Comment: Post-operative progress note Anesthesia: Postop Eval II Evaluation Mental status: Awake and Calm Pain Level: 2 nausea: No Vomiting: No Complications Anesthesia Complication: No 04/04/25 175 Date Niranjan Turner MD Cosigner Signature: Date CC: Signed Normal [facility] Operative Reporton Operative Report [facility] Medical Records Department [address] [place] [address] Operative Report 04/04/25 1437 MR#: [id number] Acct: [id number] Name: GUDELIA GUPTA Rep #: [id number] : 1940 84 From: Adonis Rodriguez MD PCP: Dr. Victor M Rocha MD Status:ADM IN [id number] Report (Standard) Operative Information Date of Procedure: 04/04/25 Pre-Operative Diagnosis: Displaced left femoral neck fracture Post-Operative Diagnosis: Same Surgery/Procedure Performed: Left hip cemented hemiarthroplasty drilling machine runner: Yes Cementer Machine Joiner: Destiny Hilario Tasks completed by fitter's assistant: Closing and Implanting device Additional restaurant assistant manager?: No Type of Anesthesia: General RN Documented Start/Stop Times: Operation Date: 04/04/25 12:30 Case Time Into Pre-Op 04/04/25 11:38 Out of Pre-Op 04/04/25 12:54 Into Room 04/04/25 12:55 Anesthesia Start 04/04/25 12:56 Procedure Start 04/04/25 13:30 Procedure Start Time: 13:30 Procedure Stop Time: 14:39 Select all DRAINS/GRAFTS/IMPLAN TS that apply: Prosthetic device Prosthetic device details: [place] cemented bipolar hemiarthroplasty Estimated Blood Loss: 300 Specimen collected: No Description of surgery: Indications for surgery : Patient is a (84) -year-old that fell yesterday fracturing the involved hip. Appropriate informed consent was obtained and signed. Appropriate medical workup was performed preoperatively and patient was deemed safe for surgery by the anesthesia department registered dental assistant rda, LUIS FELIPE was utilized throughout the entire procedure. They were vital in helping with patient positioning, holding of retractors, exposing the tissues adequately for safe completion of the procedure including cutting of the bone, helping baking powder mixer appropriate alignment and sizing of the components, implantation of the components, as well as wound closure, bandage application, and safe patient transfer. Without surgical services manager, physician restaurant assistant manager, surgical time would have been significantly increased, and surgical outcome would have been less optimal. Operative findings: Patient had displaced comminuted femoral neck fracture. We used a [place] Accolade C stem size #5 cemented. Bipolar 49 mm femoral head with a +4 neck length. This reproduced there anatomy nicely. Clinically good leg lengths were noted. Good hip stability through range of motion with no undue pistoning. Standard wound closure in layers, followed by emily, followed by Mepilex dressing Details of procedure: Patient was taken to the operating room and transferred to the operating table. Given appropriate anesthetic agent by that department. Patient was then rolled into a lateral decubitus position with the involved painful hip up in the air. Appropriate timeouts had been performed. Hip had been appropriately marked with my initials. Padded anterior and posterior position was utilized. Axillary roll placed. JUAN DANIEL hose and SCDs on the nonoperative limb utilized throughout the procedure. Operative lower extremity was prepped padded and draped in the usual orthopedic sterile fashion for the procedure. I injected the pain relieving solution in the standard sterile technique of the soft tissues of the hip carefully. Incision was made curving over the tip of the greater trochanter posteriorly. Full thickness skin flaps are raised down on the fascia maricarmen. Fascia maricarmen was opened in length with our incision. Charnley self-retaining hip retractor was carefully placed by the surgeon. Leg was appropriately rotated by the restaurant assistant manager. Retractor was used to lift the abductors anteriorly to visualize the piriformis tendon and external rotators. Piriformis tendon and external rotators released off the greater trochanter with the Bovie. Tagging suture was placed in each of these separately. We then split the tissue superior to the piriformis tendon through capsule and onto the pelvis. Acetabular labrum was preserved. Retractors were carefully placed around the femoral neck. Displaced unstable femoral neck fracture identified. cutting guide was utilized to map out the proposed cut approximately 1 fingerbreadth above the lesser trochanter. This femoral neck cut was carried out with a saw. Fractured femoral head removed from the acetabulum and measured and inspected. Appropriate trial was utilized. A proximal femoral elevator utilized. We used a sharp awl entering down inside the bone of the proximal femur. Utilized the evie cutting osteotome the proximal lateral greater trochanteric reg ion. The fragment removed. Broaching was then done from the smallest broach, upto the appropriate size. Good stability was confirmed. We then trialed the construct with a standard neck length and appropriate sized femoral head. We were happy with the construct. Good stability to flexion, rotation. At this (more content not included)... Normal [facility] Type AND Screenon 04-04-2025 ABO and Rh group Nom (Bld) Blood group O Rh(D) positive Normal [facility] Comment on above: Order Comment: [id number] HIP Performed By: #### L 501.080 #### [facility] Laboratory [address] [facility] [place], [address] 12 Lead EKGon 04-03-2025 12 Lead EKG [facility] Cardiovascular Services [address] [place] [address] 12 Lead EKG 04/03/25 1433 MR#: [id number] Acct: [id number] Name: CANDYGUDELIA E Rep #: [id number] : 1940 84 From: Vinny Root MD Attending Dr: Dr. Gunnar Mullen DO Status: ADM IN Ordering Dr: Corwin Shearer DO Date: 04/03/25 Location: MS3 Sex: F C Admitted: 04/03/25 Test Reason : CP Blood Pressure : */* mmHG Vent. Rate : 80 BPM Atrial Rate : 80 BPM P-R Int : * ms QRS Dur : 168 ms QT Int : 462 ms P-R-T Axes : * 270 93 degrees QTcB Int : 532 ms Ventricular-paced rhythm Abnormal ECG Confirmed by IVETT MORRISON, VINNY ([id number]), mapping editor MOISES LEW ([id number]) on 04/04/2025 7:29:35 AM Referred By: Confirmed By: VINNY ROOT MD 04/04/25728 Date Vinny Root MD CC: Dr. Gunnar Mullen DO; Dr. Victor M Rocha MD; Dr. Corwin Shearer DO Signed Normal [facility] Activated partial thrombopla stin time (aPTT) in platelet poor plasma by coagulation aOrdered By: Corwin Shearer on 04-03-2025 aPTT Coag (PPP) [Time] 40.9 s High 24.1-36.2 [facility] Basic Metabolic Profile (BMP )on 04-03-2025 BUN/CRE 13.5 RATIO Normal 10-[address] [facility] Comment on above: Performed By: #### L 500.2500, L100.0100 #### [facility] Laboratory [address] [place], [address] Calcium [Mass/Vol] 9.2 mg/dL Normal 7.6-11.0 [facility] Comment on above: Performed By: #### L 500.2500, L100.0100 #### [facility] Laboratory [address] [place], [address] Chloride [Moles/Vol] 101 mmol/L Normal 98-108 [facility] Comment on above: Performed By: #### L 500.2500, L100.0100 #### [facility] Laboratory [address] [place], [address] CO2 [Moles/Vol] 22.0 mmol/L Normal 21.0-32.[address] [facility] Comment on above: Performed By: #### L 500.2500, L100.0100 #### [facility] Laboratory [address] [place], [address] Creatinine [Mass/Vol] 1.34 mg/dL High 0.70-1.20 [facility] Comment on above: Performed By: #### L 500.2500, L100.0100 #### [facility] Laboratory [address] [place], [address] ECRCL 36.41 ml/min Low 50-[address] [facility] Comment on above: Performed By: #### L 500.2500, L100.0100 #### [facility] Laboratory [address] [place], [address] GAP 12 Normal 5-[address] [facility] Comment on above: Performed By: #### L 500.2500, L100.0100 #### [facility] Laboratory [address] [place], [address] GFR/1.73 sq M.predicted among non-blacks MDRD (S/P/Bld) [Vol rate/Area] 39 mL/min/{1.73_m2} Low >[address] [facility] Comment on above: Result Comment: mL/m in/1.73m2 CKD-EPI Creatinine Equation (2020) Performed By: #### L 500.2500, L100.0100 #### [facility] Laboratory [address] [place], [address] Glucose [Mass/Vol] 181 mg/dL High 70-99 [facility] Comment on above: Performed By: #### L 500.2500, L100.0100 #### [facility] Laboratory [address] [place], [address] Potassium [Moles/Vol] 4.4 mmol/L Normal 3.3-5.1 [facility] Comment on above: Performed By: #### L 500.2500, L100.0100 #### [facility] [address] [place], [address] Sodium [Moles/Vol] 135 mmol/L Normal 133-145 [facility] Comment on above: Performed By: #### L 500.2500, L100.0100 #### [facility] [address] [place], [address] Urea nitrogen [Mass/Vol] 18 mg/dL Normal 4-[address] [facility] Comment on above: Performed By: #### L 500.2500, L100.0100 #### [facility] Laboratory [address] [place], [address] Bedside Glucoseon 04-03-2025 FINGERSTICK GLU 174 mg/dL High 74-[address] [facility] Comment on above: Result Comment: CRISTIAN PACHECO OF PATIENT CARE PER NURSING PROTOCOL Performed By: #### L 500.2500, L100.0100 #### [facility] Laboratory [address] [place], [address] Brain/Head without Contrasto n 04-03-2025 Brain/Head without Contrast [facility] Imaging Services [address] [place] [address] Brain/Head without Contrast MR#: [id number] Acct: [id number] Name: GUDELIA GUPTA Rep #: [id number] : 1940 F 84 From: Bello snyder MD PCP: Dr. Victor M Rocha MD Status: REG ER Study: Brain/Head without Contrast Date of Exam: 03/14 09/06 Exam# [id number] Ordering Dr: Corwin Shearer DO PROCEDURE: BRAIN/HEAD WITHOUT CONTRAST 04/03/2025 REASON FOR EXAM: FALL TECHNIQUE: Procedure Code: CTBR Modality: CT Procedure: BRAIN/HEAD WITHOUT CONTRAST Coronal and Sagittal reconstruction series were provided. One or more dose reduction techniques were used (e.g., Automated exposure control, adjustment of the mA and/or kV according to patient size, use of iterative reconstruction technique. RADIATION DOSE SUMMARY: CTDlvol: 47.06 mGy DLP: 907.97 mGycm COMPARISON: Prior study dated December 27, 2018. FINDINGS: Brain: Low density in the periventricular white matter suggests mild chronic small vessel ischemic changes. CSF Spaces: Moderate generalized cerebral atrophy atherosclerotic calcification of the vertebral arteries and cavernous portions of the internal carotid arteries bilaterally. Sinuses/Mastoids: Mucosal thickening of the right maxillary sinus. Bones: No skull fracture is seen. CT/Brain/Head without Contrast IMPRESSION: CHRONIC CHANGES. NO ACUTE FINDINGS. Reading Location: [place] [address] CC: Dr. Victor M Rocha MD; Dr. Corwin Shearer DO Job Checker: Signed Normal [facility] CBC W/Diff, Automatedon 03-14 Anisocytosis Ql (Bld) 1+ Normal [facility] Comment on above: Performed By: #### L 500.2500, L100.0100 #### [facility] Laboratory [address] [facility]. [place], [place], [address] Chest 1 View (Portable)on Chest 1 View (Portable) [facility] Imaging Services [address] [place], [place] [address] Chest 1 View (Portable) MR#: [id number] Acct: [id number] Name: GUDELIA GUPTA Rep #: [id number] : 1940 F 84 From: Deandre Garcia PCP: Dr. Victor M Rocha MD Status: REG ER Study: Chest 1 View (Portable) Date of Exam: 04/03/25 Exam# [id number] Ordering Dr: Corwin Shearer DO PROCEDURE: CHEST 1 VIEW (PORTABLE) 04/03/2025 REASON FOR EXAM: CHEST PAIN TECHNIQUE: Single-view AP portable supine chest. COMPARISON: Chest x-ray of 02/08/2025. RAD/Chest 1 View (Portable) IMPRESSION: Left thoracic transvenous pacemaker with atrial and ventricular leads, stable in position. A prominently calcified aorta is noted. Mild cardiomegaly is seen. Increased interstitial markings are seen, concerning for (but not diagnostic of) mild interstitial pulmonary edema. No focal infiltrate is noted. No pleural effusion or pneumothorax is seen. No acute osseous change is seen. Reading Location: [id number] CC: Dr. Victor M Rocha MD; Dr. Corwin Shearer DO Job Checker: Signed Normal [facility] Emergency Department Summary on 04-03-2025 Emergency Department Summary [facility] Medical Records Department [address] [place] [address] Emergency Department Summary 04/03/25 MR#: [id number] Acct: [id number] Name: GUDELIA GUPTA Rep #: [id number] : 1940 84 From: Corwin Shearer DO PCP: Dr. Victor M Rocha MD Status:REG ER Location: ED ADDENDUM by Dr. Corwin Shearer DO on 04/03/25 at 1629 EKG reviewed showed ventricular paced rhythm with a rate of 80 bpm no Sgarbossa criteria met. 04/03/25 1629 Cosigner Signature (if applicable): cc: Dr. Victor M Rocha MD * Signed HPI History of Present Illness Chief Complaint: Lower Extremity Injury Narrative Narrative: Patient is a 84-year-old female with past medical history of paroxysmal atrial fibrillation/flutter , sick sinus syndrome, hypothyroidism, anxiety, hypertension who presented to the emergency department the chief complaint of left hip pain. Patient states that she slipped on a hardwood floor landed on her left hip and had immediate pain. States that she cannot get out of she called EMS to have her brought here. Patient states that she did not hit her head did not pass out states that she does not have any pain anywhere else. [facility] Medical History Overweight (BMI 25.0-29.9) Coronary artery disease Iron deficiency anemia History of non-ST elevation myocardial infarction (NSTEMI) (2013) Longstanding persistent atrial fibrillation Essential (primary) hypertension Anxiety Hypothyroidism Hyperlipidemia Secondary pulmonary arterial hypertension Atherosclerosis of coronary artery of [place] heart without angina pectoris Paroxysmal atrial fibrillation Paroxysmal atrial flutter Sick sinus syndrome Home Medications ???Medication ???Instructions ???Recorded ???Last Taken ???Type buspirone 15 mg tablet 15 mg PO BID ANXIETY 06/02/13 Unkn own History omeprazole 40 mg capsule,delayed 40 mg PO DAILY ACID REFLUX 3 04/11/24 History release nitroglycerin 0.4 mg sublingual 0.4 mg sublingual Q5M PRN CHEST Unknown History tablet PAIN glimepiride 4 mg tablet 2 mg PO DAILY DIABETES 01/24/22 History amitriptyline 50 mg tablet 50 mg PO QHS DEPRESSION 02/17/23 U nknown History empagliflozin 10 mg tablet 10 mg PO DAILY DIABETES 02/17/23 U nknown History (Jardiance) ketotifen fumarate 0.025 % (0.035 1 drp ophthalmic (eye) BID PRN Unknown History %) eye drops (Alaway) ITCHING/ALLERGIES levothyroxine 100 mcg tablet 100 mcg PO DAILY THYROID 12/14/23 Unknown History (Synthroid) furosemide 40 mg tablet (Lasix) 40 mg PO DAILY water pill #60 tabs 12/17/23 Unknown Rx rivaroxaban 20 mg tablet (Xarelto) 20 mg PO QPM #90 tabs 10/06/24 U nknown Rx losartan 100 mg tablet 100 mg PO DAILY blood pressure #90 11/18/24 Unknown Rx tabs potassium chloride 20 mEq 40 meq (2 x 20 mEq) PO QDAY #90 Unknown Rx tablet,extended release(part/cryst) tabs metoprolol succinate 50 mg 50 mg PO DAILY heart/BP #90 tabs 0 11/23/24 Unknown Rx tablet,extended release 24 hr simvastatin 20 mg tablet 20 mg PO QHS CHOLESTEROL #90 tabs 12/22/24 Unknown Rx amlodipine 10 mg tablet 10 mg PO DAILY 02/08/25 Unknown Hi story ferrous sulfate 325 mg (65 mg 65 mg PO DAILY 02/08/25 Unknown Hi story iron) tablet (FeroSul) oxycodone-acetaminop hen 5 mg-325 1 tab PO TID PRN PRN pain 02/08/25 Unknown History mg tablet ascorbic acid (vitamin C) 500 mg 500 mg PO BID 04/03/25 Unknown His tory tablet (Vitamin C) Allergy/AdvReac Type Severity Reaction Status Date / Time poison fany extract (Poison Allergy Rash Verified 04/03/25 13:18 Fany Extract) Sulfa (Sulfonamide Allergy Hives Verified 04/03/25 13:18 Antibiotics) Family History Mother Cancer Father Cancer Brother CAD (coronary artery disease) Sister CAD (coronary artery disease) Surgical History S/P kyphoplasty History of tubal ligation History of appendectomy History of hysterectomy History of left heart catheterization (10/09/13) History of coronary artery stent placement (09/2010) Hx of atrioventricular node ablation (03/31/16) Presence of cardiac pacemaker (04/26/15) Social History household members: spouse Smoking Status: Former smoker how long ago did patient quit smokin's alcohol intake: never substance use type: does not use caffeine: Yes Type: coffee Number of servings: 3 ROS ROS ED ROS Narrative Constitutional: Denies any fevers, chills, headaches Cardiovascular: Denies chest pain Respiratory: No shortness of breath Abdomen: Denies abdominal pain nausea vomit d (more content not included)... Normal [facility] Femur Min 2 Viewson 04-03-20 25 Femur Min 2 Views [facility] Imaging Services [address], [place] [address] Femur Min 2 Views MR#: [id number] Acct: [id number] Name: GUDELIA GUPTA Rep #: [id number] : 1940 F 84 From: Bello snyder MD PCP: Dr. Victor M Rocha MD Status: REG ER Study: Femur Min 2 Views Date of Exam: 04/03/25 Exam# [id number] Ordering Dr: Corwin Shearer DO PROCEDURE: FEMUR MIN 2 VIEWS 04/03/2025 REASON FOR EXAM: FALL TECHNIQUE: Procedure Code: RADFEM Modality: DX Procedure: FEMUR MIN 2 VIEWS Laterality: Left femur COMPARISON: None FINDINGS: Bones: Nondisplaced impacted fracture of the subcapital region of the proximal left femur. Joints: Degenerative changes Soft tissues: Soft tissue swelling. Other: RAD/Femur Min 2 Views IMPRESSION: Nondisplaced impacted fracture of the subcapital region of the proximal left femur. Soft tissue swelling. Reading Location: [place] [address] CC: Dr. Victor M Rocha MD; Dr. Corwin Shearer DO Job Checker: Signed Normal [facility] H AND P Exam - [place] 04-03-2025 H&P Exam - Hospitalist [facility] Medical Records Department [address] [place] [id number] H P Exam - Hospitalist 04/03/25 1713 MR#: [id number] Acct: [id number] Name: GUDELIA GUPTA Rep #: [id number] : 1940 84 From: Ashli Bonner MD PCP: Dr. Victor M Rocha MD Status:ADM IN Location: [facility] [place] [id number] HPI - General General Date of Admission: 04/03/25 Date of Service: 04/03/25 Chief Complaint: Left hip pain after fall HPI Narrative GUDELIA GUPTA, is a 84-year-old female history of A-fib/flutter, sick sinus syndrome with pacemaker placement, anxiety, hypertension, GERD, diabetes who presented [facility] ED 04/03/2025 for left hip pain. She slipped on hardwood floor and landed on her left hip and had immediate pain. In the ED temp 98, heart rate 78, blood pressure 96/83, respiratory rate 20 and pulse ox 96% on room air. White blood cell count 17.4, hemoglobin 11.8, BMP with a BUN of 18 and a creatinine of 1.34. INR 2.1. CT brain no acute changes. Cervical spine no acute process. Femur x-ray and x-ray pelvis with nondisplaced impacted fracture of subcapital region of proximal left femur with soft tissue swelling. Chest x-ray with some increased interstitial markings but no focal infiltrate. Given patient's hip fracture Ortho contacted who recommended hospital admission with Ortho consult. Hospitalist contacted for admission. Patient evaluated bedside. She reports walking up her stairs and that her foot caught and she fell on the hardwood floor on her left hip. Denies hurting anything else or hitting her head. Denies any significant new shortness of breath or chest pain or cough. Gets some swelling in her lower extremities which is not necessarily new and she wears lower extremity stockings for this. Was noted to be hypoxic into the mid to high 80s while laying flat on room air and was placed on 2 L of nasal cannula. Does have history of heart failure, reports compliance with her Lasix. Denies any bowel or bladder concerns or changes [facility] Medical History Overweight (BMI 25.0-29.9) Coronary artery disease Iron deficiency anemia History of non-ST elevation myocardial infarction (NSTEMI) (2013) Longstanding persistent atrial fibrillation Essential (primary) hypertension Anxiety Hypothyroidism Hyperlipidemia Secondary pulmonary arterial hypertension Atherosclerosis of coronary artery of [place] heart without angina pectoris Paroxysmal atrial fibrillation Paroxysmal atrial flutter Sick sinus syndrome Home Medications ???Medication ???Instructions ???Recorded ???Last Taken ???Type buspirone 15 mg tablet 15 mg PO TID ANXIETY 06/02/1303/14 History omeprazole 40 mg capsule,delayed 40 mg PO DAILY ACID REFLUX 3 04/02/25 History release nitroglycerin 0.4 mg sublingual 0.4 mg sublingual Q5M PRN CHEST Unknown History tablet PAIN amitriptyline 50 mg tablet 50 mg PO QHS DEPRESSION 02/17/23 0 04/02/25 History empagliflozin 10 mg tablet 10 mg PO DAILY DIABETES 02/17/23 0 04/03/25 History (Jardiance) ketotifen fumarate 0.025 % (0.035 1 drp ophthalmic (eye) BID PRN 04/02/25 History %) eye drops (Alaway) ITCHING/ALLERGIES levothyroxine 100 mcg tablet 100 mcg PO DAILY THYROID 12/14/23 04/03/25 History (Synthroid) furosemide 40 mg tablet (Lasix) 40 mg PO DAILY water pill #60 tabs 12/17/23 04/03/25 Rx rivaroxaban 20 mg tablet (Xarelto) 20 mg PO QPM #90 tabs 10/06/24 0 04/02/25 Rx losartan 100 mg tablet 100 mg PO DAILY blood pressure #90 11/18/24 04/03/25 Rx tabs potassium chloride 20 mEq 40 meq (2 x 20 mEq) PO QDAY #90 04/02/25 Rx tablet,extended release(part/cryst) tabs metoprolol succinate 50 mg 50 mg PO DAILY heart/BP #90 tabs 0 11/23/24 04/02/25 Rx tablet,extended release 24 hr simvastatin 20 mg tablet 20 mg PO QHS CHOLESTEROL #90 tabs 12/22/24 04/02/25 Rx amlodipine 10 mg tablet 10 mg PO DAILY 02/08/25 04/02/25 H istory ferrous sulfate 325 mg (65 mg 65 mg PO DAILY 02/08/25 04/03/25 H istory iron) tablet (FeroSul) oxycodone-acetaminop hen 5 mg-325 1 tab PO TID PRN PRN pain 02/08/25 04/03/25 History mg tablet ascorbic acid (vitamin C) 500 mg 500 mg PO BID 04/03/25 04/03/25 Hi story tablet (Vitamin C) Allergy/AdvReac Type Severity Reaction Status Date / Time poison fany extract (Poison Allergy Rash Verified 04/03/25 13:18 Fany Extract) Sulfa (Sulfonamide Allergy Hives Verified 04/03/25 13:18 Antibiotics) Family History Mother Cancer Father Cancer Brother CAD (coronary artery disease) Sister CAD (coronary artery disease) Surgical History S/P kyphoplasty History of tubal ligation Histor (more content not included)... Normal [facility] International normalized rat io (INR) calculationOrdered By: Corwin Shearer on 04-03-2025 INR Coag (Bld) [Relative time] 2.1 {INR} [facility] Natriuretic peptide.B prohor chris N-Terminal [Mass/volume] in Serum or PlasmaOrdered By: Corwin Shearer on 04-03-2025 Natriuretic peptide.B prohormone N-Terminal [Mass/Vol] 1850 pg/mL High <[address] [facility] Comment on above: Heart Failure Unlike ly: < 300 pg/mLHeart Failure Likely< 50 Years: > 450 pg/mL50-75 Years: > 900 pg/mL>75 Years: > 1800 pg/mL Partial Thromboplast Timeon 04-03-2025 aPTT Coag (Bld) [Time] 40.9 s High 24.1-36.2 [facility] Comment on above: Performed By: #### L 500.2500, L100.0100 #### [facility] Laboratory [address] [place], [place], [address] Pelvis 1 or 2 Viewson 2024 Pelvis 1 or 2 Views [facility] Imaging Services [address] [place], [place] [address] Pelvis 1 or 2 Views MR#: [id number] Acct: [id number] Name: GUDELIA GUPTA Rep #: [id number] : 1940 F 84 From: Deandre Garcia PCP: Dr. Victor M Rocha MD Status: REG ER Study: Pelvis 1 or 2 Views Date of Exam: 04/03/25 Exam# [id number] Ordering Dr: Corwin Shearer DO PROCEDURE: PELVIS 1 OR 2 VIEWS 04/03/2025 REASON FOR EXAM: FALL TECHNIQUE: Procedure Code: RADPEL Modality: DX Procedure: PELVIS 2 VIEWS COMPARISON: None. RAD/Pelvis 1 or 2 Views IMPRESSION: Residual contrast material is seen within at least 2 sigmoid diverticula. Significant degenerative changes are seen of the visualized lower lumbar spine. Mild sacroiliac joint degenerative changes are noted. Deformity of the left femoral neck is seen, concerning for possible basicervical mildly impacted fracture. Additional imaging of the left hip may be performed, at this time. Reading Location: [place] [id number] CC: Dr. Victor M Rocha MD; Dr. Corwin Shearer DO Job Checker: Signed Normal [facility] Pro- Brain NATRIURETIC PEPTI Kiesha 04-03-2025 Natriuretic peptide B (Bld) [Mass/Vol] 1850 pg/mL High <=[address] [facility] Comment on above: Result Comment: Hear t Failure Unlikely: < 300 pg/mL Heart Failure Likely < 50 Years: > 450 pg/mL 50-75 Years: > 900 pg/mL >75 Years: > 1800 pg/mL Performed By: #### L 500.2500, L100.0100 #### [facility] [address] [place], [address] Prothrombin Time w/INRon INR Coag (PPP) [Relative time] 2.1 {INR} Normal [facility] Comment on above: Performed By: #### L 500.2500, L100.0100 #### [facility] [address] [place], [address] PT Coag (PPP) [Time] 24.1 s High 11.7-14.9 [facility] Comment on above: Performed By: #### L 500.2500, L100.0100 #### [facility] [address] [place], [address] Prothrombin timeOrdered By: Corwin Shearer on 04-03-2025 PT Coag (PPP) [Time] 24.1 s High 11.7-14.9 [facility] Spine Cervical without Contr ason 04-03-2025 Spine Cervical without Contras [facility] Imaging Services [address] [place] [address] Spine Cervical without Contras MR#: [id number] Acct: [id number] Name: GUDELIA GUPTA Rep #: [id number] : 1940 F 84 From: Bello snyder MD PCP: Dr. Victor M Rocha MD Status: REG ER Study: Spine Cervical without Contras Date of Exam: 0 04/03/25 Exam# [id number] Ordering Dr: Corwin Shearer DO PROCEDURE: SPINE CERVICAL WITHOUT CONTRAS 04/03/2025 REASON FOR EXAM: FALL TECHNIQUE: Procedure Code: CTS Modality: CT Procedure: SPINE CERVICAL WITHOUT CONTRAS Coronal and Sagittal reconstruction series were provided. One or more dose reduction techniques were used (e.g., Automated exposure control, adjustment of the mA and/or kV according to patient size, use of iterative reconstruction technique. RADIATION DOSE SUMMARY: CTDlvol: 20.67 mGy DLP: 442.07 mGycm COMPARISON: None FINDINGS: Alignment: Straightening of the normal cervical lordosis. Vertebrae: Spondylosis. No vertebral fracture. Soft Tissues: No prevertebral soft tissue swelling. Other: C1-2: Degenerative changes at the atlantoaxial joint. C2-3: Mild degree of disc space narrowing. No evidence of fracture. Facet joint osteoarthritis. C3-4: Minimal degree of anterior listhesis of C3 on C4 due to facet joint osteoarthritis and hypertrophy. No significant stenosis is seen. C4-5: Moderate degree of disc space narrowing. Anterior spondylosis. Facet joint osteoarthritis and hypertrophy. Mild degree of bilateral neural foraminal stenosis. C5-6: Marked degree of disc space narrowing. Spondylosis. No evidence of stenosis. C6-7: Moderate degree of disc space narrowing. No evidence of stenosis. C7-T1: CT/Spine Cervical without Contras IMPRESSION: DEGENERATIVE CHANGES OF THE CERVICAL SPINE. NO EVIDENCE OF SIGNIFICANT OSSEOUS CENTRAL CANAL OR NEURAL FORAMINAL STENOSIS. Reading Location: [facility] CC: Dr. Victor M Rocha MD; Dr. Corwin Shearer DO Job Checker: Signed Normal [facility] CNOVon 03-07-2025 CNOV Office Visit (FAMPWS) GUDELIA GUPTA ([id number]) 1940 F Date Time Provider Department 03/07/25 2:20 PM VICTOR M ROCHA During your visit today, we recorded the following information about you: Pulse Respiration Blood pressure Weight 66/minute 16/minute 112/74 86.9 kg Victor M Rocha MD 03/07/2025 5:56 PM Signed Chief Complaint Patient presents with: Recheck: 4 week f/u weakness HPI Gudelia Gupta is a 84 year old female who presents here today for follow up. Recording using [employer] software for draft documentation of the visit was discussed with the patient/authorized retail sales representative; all questions welcomed and answered. Patient/authorized retail sales representative agreed to proceed Gudelia Gupta is an 84-year-old female with a history of CHF, DM, and chronic anemia, presenting for follow-up after a recent hospitalization for CHF exacerbation. Gudelia was recently hospitalized earlier this month for a CHF exacerbation, which she attributes to excessive sodium intake. She reports not adhering to her low-sodium diet, leading to fluid retention. She was advised to go to the emergency room by her physician's office, where she was promptly admitted and treated. Since discharge, she has been monitoring her weight daily and is aware of the guidelines to seek medical attention if she gains more than 3 pounds in one day or 5 pounds in two days. She is attempting to adhere to a low-sodium diet but finds it challenging. Gudelia has a history of chronic anemia, which she believes may be related to a childhood exposure to hookworms. She is currently taking ferrous sulfate and vitamin C supplements to manage her anemia. She also wears compression stockings daily to manage lower extremity edema, which she notes is effective in reducing swelling. Gudelia is on glimepiride 2 mg daily for DM management. She reports a recent episode of hypoglycemia, which she attributes to prolonged periods of sewing without eating. She managed the episode by consuming canned pears and their juice, which alleviated her symptoms. She is also taking Jardiance and expresses concerns about her renal function, although she is compliant with her medication regimen. She remains active in her daily activities, including housework and cooking, with significant assistance from her . She enjoys sewing and has been making quilts for children in foster care, although she notes that prolonged periods of sewing can lead to fatigue. 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 Past medical history, appointments, medications, allergies reviewed. Previous Medical History PAST MEDICAL HISTORY Diagnosis Date Coronary atherosclerosis of unspecified type of vessel, [place] or graft Stent x 2010 Depressive disorder, [...] on File Prior to Visit Medication Sig furosemide (LASIX) 40 mg tablet Take 1 tablet by mouth once daily. ferrous sulfate 325 mg (65 mg iron) tablet Take 1 tablet by mouth two times a day with meals. ascorbic acid, vitamin C, (VITAMIN C) 500 mg tablet Take 1 tablet by mouth two times a day. empagliflozin (JARDIANCE) 10 mg tablet Take 1 tablet by mouth once daily. Take 1 tablet once daily in the morning levothyroxine (SYNTHROID) 100 mcg tablet Take 1 tablet by mouth once daily. amitriptyline (ELAVIL) 50 mg tablet Take 1 tablet by mouth daily at bedtime. glimepiride (AMARYL) 4 mg tablet Take 0.5 tablets by mouth daily with breakfast. busPIRone (BUSPAR) 15 mg tablet Take 1 tablet by mouth three times a day. losartan (COZAAR) 100 mg tablet Take 100 mg by mouth once daily. potassium chloride ER (KLOR-CON) 20 mE (more content not included)... Normal [facility] CNOVon 02-24-2025 CNOV Office Visit (GSTNOR) GUDELIA GUPTA ([id number]) 1940 F Date Time Provider Department 02/24/25 1:25 PM SHARA AGARWAL GSTNOR During your visit today, we recorded the following information about you: Pulse Blood pressure Weight Height 66/minute 132/64 82.6 kg 1.727 m Shara Agarwal PA-C 02/24/2025 1:25 PM Signed CHIEF COMPLAINT: Patient presents with: Positive FIT test Recheck This consult was requested by Carlos House APRN.CNP for an opinion regarding positive FIT, anemia. My final recommendations will be communicated to the requesting health care provider by way of the shared medical record for internal providers or letter via the [employer] for external providers. HPI: Gudelia Gupta is a 84 year old female who presents for Positive FIT test and Recheck. PMHx of T2DM, HLD, tremor, A fib, s/p pacemaker, CHF, GERD, CKD Daughter is present today as well as . Patient notes that she has always been iron deficient, has been dealing with this since being a child. Notes that her stools are black since restarting her Iron pills. Notes some mild constipation since starting Iron, taking Miralax in apple juice daily. Denies rectal bleeding, heartburn, nausea, vomiting. Appetite changes. Has been on Omeprazole for a long time. Latest Ref Rng 02/20/2025 Occult Blood, Stool Negative Positive ! Latest Ref Rng 02/14/2025 WBC 3.70 - 11.00 k/uL 5.90 RBC 3.90 - 5.20 m/uL 4.13 Hemoglobin 11.5 - 15.5 g/dL 9.8 (L) Hematocrit 36.0 - 46.0 % 33.8 (L) MCV 80.0 - 100.0 fL 81.8 MCH 26.0 - 34.0 pg 23.7 (L) MCHC 30.5 - 36.0 g/dL 29.0 (L) RDW-CV 11.5 - 15.0 % 21.2 (H) Platelet Count 150 - 400 k/uL 354 MPV 9.0 - 12.7 fL 10.6 Neut% % 57.9 Abs Neut (ANC) 1.45 - 7.50 k/uL 3.41 Lymph% % 24.9 Abs Lymph 1.00 - 4.00 k/uL 1.47 Cortland% % 12.7 Abs [place] <0.87 k/uL 0.75 Eosin% % 3.4 Abs Eosin <0.46 k/uL 0.20 Baso% % 0.8 Abs Baso <0.11 k/uL 0.05 Immature Gran % % 0.3 IMMATURE GRANS (ABS) <0.10 k/uL <0.03 NRBC /100 WBC 0.0 Absolute nRBC <0.01 k/uL <0.01 DTYPE Auto Glucose 74 - 99 mg/dL 73 (L) BUN 7 - 21 mg/dL 20 Creatinine 0.58 - 0.96 mg/dL 1.43 (H) Sodium 136 - 144 mmol/L 135 (L) Potassium 3.7 - 5.1 mmol/L 4.3 Chloride 98 - 107 mmol/L 100 CO2 22 - 30 mmol/L 22 Anion Gap 8 - 15 mmol/L 13 Calcium 8.5 - 10.2 mg/dL 9.5 eGFR >=60 mL/min/1.73m? 36 (L) Iron 41 - 186 ug/dL 35 (L) TIBC 232 - 386 ug/dL 392 (H) Transferrin Saturation 15.0 - 57.0 % 8.9 (L) Ferritin 14.7 - 205.1 ng/mL 66.7 Legend: (L) Low (H) High Legend: ! Abnormal Record Review: [facility] / Outside records reviewed. PAST MEDICAL HISTORY Diagnosis Date Coronary atherosclerosis of unspecified type of vessel, [place] or graft Stent x 2010 Depressive disorder, [...] 1985 Hysterectomy, ROSALIO W TRY ATRIOGRM HP Allergies: ALLERGIES Allergen Reactions Poison Fany Sulfa (Sulfonamide * Hives Medications: furosemide (LASIX) 40 mg tablet Take 1 tablet by mouth once daily. ferrous sulfate 325 mg (65 mg iron) tablet Take 1 tablet by mouth two times a day with meals. ascorbic acid, vitamin C, (VITAMIN C) 500 mg tablet Take 1 tablet by mouth two times a day. empagliflozin (JARDIANCE) 10 mg tablet Take 1 tablet by mouth once daily. Take 1 tablet once daily in the morning levothyroxine (SYNTHROID) 100 mcg tablet Take 1 tablet by mouth once daily. amitriptyline (ELAVIL) 50 mg tablet Take 1 tablet by mouth daily at bedtime. glimepiride (AMARYL) 4 mg tablet Take 0.5 tablets by mouth daily with breakfast. busPIRone (BUSPAR) 15 mg tablet Take 1 tablet by mouth three times a day. losartan (COZAAR) 100 mg tablet Take 100 mg by mouth once daily. potassium chloride ER (KLOR-CON) 20 mEq tablet Take two tablets by mouth once daily. omeprazole (PRILOSEC) 40 mg capsule Take 1 capsule by mouth once daily. oxyCODONE-acetaminop hen (PERCOCET) 5-325 mg tablet TAKE 1 TO 2 TABLETS BY MOUTH EVERY 6 HOURS FOR PAIN metoprolol succinate ER (TOPROL XL) 50 mg 24 hr tablet T (more content not included)... Normal [facility] Cardiology Visit Reporton Cardiology Visit Report [facility] Heart [facility] [address] [place] [address] OFFICE VISIT Date of Service: 02/21/25 MR#: [id number] Acct: [id number] Name: GUDELIA GUPTA Rep #: [id number] : 1940 Provider: MODESTA berrios Age/Sex: 84/F Location: [facility] Status: Signed HPI HPI History of Present Illness Details: GUDELIA GUPTA, is a 84 F who presents today for cardiovascular follow-up visit. She has a history of coronary artery [...] She also has a lumbar compression fx. From a cardiac standpoint, the patient is doing well. She presents to the office in a wheel chair. She denies any palpitations, chest pain, pressure or heaviness. She denies SOB, Orthopnea, and PND. She does not have bleeding issues; no blood in urine, stool, or nosebleeds. She denies any decrease in energy level, myalgias, or claudication. She does not have edema, or sudden weight gain. She denies lightheadedness, dizziness, syncopal or near syncopal episodes, and headaches. Intake Vital Signs 02/09/25 09:28 02/21/25 09:27 Height 5 ft 8 in 5 ft 8 in Weight: 186 lb BMI 28.3 BP 109/66 Blood Pressure Location Lt brachial Position Sitting Respiration 18 Pulse 78 Pulse Source Monitor Pulse Oximetry (%) 93 Intake Visit Reasons: S/P [facility] 02/11 Physical Therapy Teacher Required: No Is patient in pain?: No Allergies poison fany extract (Poison Fany Extract) Allergy (Verified 02/21/25 10:26) Rash Sulfa (Sulfonamide Antibiotics) Allergy (Verified 02/21/25 10:26) Hives Medications ???Medication ???Instructions ???Recorded ???Confirmed ???Type buspirone 15 mg tablet 15 mg PO BID ANXIETY 06/02/1302/10 History omeprazole 40 mg capsule,delayed 40 mg PO DAILY ACID REFLUX 3 02/21/25 History release nitroglycerin 0.4 mg sublingual 0.4 mg sublingual Q5M PRN CHEST 02/21/25 History tablet PAIN glimepiride 4 mg tablet 2 mg PO DAILY DIABETES 01/24/22 History amitriptyline 50 mg tablet 50 mg PO QHS DEPRESSION 02/17/23 0 02/21/25 History empagliflozin 10 mg tablet 10 mg PO DAILY DIABETES 02/17/23 0 02/21/25 History (Jardiance) ketotifen fumarate 0.025 % (0.035 1 drp ophthalmic (eye) BID PRN 02/21/25 History %) eye drops (Alaway) ITCHING/ALLERGIES levothyroxine 100 mcg tablet 100 mcg PO DAILY THYROID 12/14/23 02/21/25 History (Synthroid) furosemide 40 mg tablet (Lasix) 40 mg PO DAILY water pill #60 tabs 12/17/23 02/21/25 Rx rivaroxaban 20 mg tablet (Xarelto) 20 mg PO QPM #90 tabs 10/06/24 0 02/21/25 Rx losartan 100 mg tablet 100 mg PO DAILY blood pressure #90 11/18/24 02/21/25 Rx tabs potassium chloride 20 mEq 40 meq (2 x 20 mEq) PO QDAY #90 02/21/25 Rx tablet,extended release(part/cryst) tabs metoprolol succinate 50 mg 50 mg PO DAILY heart/BP #90 tabs 0 11/23/24 02/21/25 Rx tablet,extended release 24 hr simvastatin 20 mg tablet 20 mg PO QHS CHOLESTEROL #90 tabs 12/22/24 02/21/25 Rx amlodipine 10 mg tablet 10 mg PO DAILY 02/08/25 02/21/25 H istory ferrous sulfate 325 mg (65 mg 65 mg PO DAILY 02/08/25 02/21/25 H istory iron) tablet (FeroSul) oxycodone-acetaminop hen 5 mg-325 1 tab PO TID PRN PRN pain 02/08/25 02/21/25 History mg tablet Ejection fraction %: 55 Have you fallen in the past year?: No PFSH Medical History (Reviewed 02/21/25 @ 14:54 by Phyllis Tovar CORPORATE RISK ANALYST, CORPORATE RISK ANALYST-C) Overweight (BMI 25.0-29.9) Coronary artery disease Iron deficiency anemia History of non-ST elevation myocardial infarction (NSTEMI) (2013) Longstanding persistent atrial fibrillation Essential (primary) hypertension Anxiety Hypothyroidism Hyperlipidemia Secondary pulmonary arterial hypertension Atherosclerosis of coronary artery of [place] heart without angina pectoris Paroxysmal atrial fibrillation Paroxysmal atrial flutter Sick sinus syndrome Surgical History (Reviewed 02/21/25 @ 14:54 by Phyllis Tovar CORPORATE RISK ANALYST, CORPORATE RISK ANALYST-C) S/P kyphoplasty History of tubal ligation History of appendectomy History of hysterectomy History of left heart catheterization (10/09/13) History of coronary artery stent placement (09/2010) Hx of atrioventricular node ablation (03/31/16) Presence of cardiac pacemaker (04/26/15) Family Hi (more content not included)... Normal [facility] Hemoccult Stl Ql IAon 2024 Lower GI hemoglobin IA Ql (Stl) Positive Abnormal Negative [facility] Comment on above: Order Comment: Speci men Type: STOOL SPECIMENOrdering Facility: [facility] Address: [address] [place] [address] Performed By: #### 2 9771-3 ####[facility] LABCLIA [id number] [address] STATES OF [facility] Basic Metabolic Profile (BMP )on 02-18-2025 BUN Normal - [facility] Comment on above: Result Comment: Canc elled via OM: Order cancelled - Patient discharged Performed By: #### L 503.7505, L503.6005, L500.4050, L501.4021, L100.0100 #### [facility] [address] [facility] [place], [address] BUN/CRE Normal - [facility] Comment on above: Result Comment: Canc elled via OM: Order cancelled - Patient discharged Performed By: #### L 503.7505, L503.6005, L500.4050, L501.4021, L100.0100 #### [facility] [address] [place], [address] Calcium Normal 7.6-11.[address] [facility] Comment on above: Result Comment: Canc elled via OM: Order cancelled - Patient discharged Performed By: #### L 503.7505, L503.6005, L500.4050, L501.4021, L100.0100 #### [facility] [address] [place], [address] CL Normal 98-[address] [facility] Comment on above: Result Comment: Canc elled via OM: Order cancelled - Patient discharged Performed By: #### L 503.7505, L503.6005, L500.4050, L501.4021, L100.0100 #### [facility] [address] [place], [address] CO2 Normal 21.0-32.[address] [facility] Comment on above: Result Comment: Canc elled via OM: Order cancelled - Patient discharged Performed By: #### L 503.7505, L503.6005, L500.4050, L501.4021, L100.0100 #### [facility] [address] [place], [address] CREAT,SERUM Normal 0.70-1.[address] [facility] Comment on above: Result Comment: Canc elled via OM: Order cancelled - Patient discharged Performed By: #### L 503.7505, L503.6005, L500.4050, L501.4021, L100.0100 #### [facility] [address] [place], [address] eGFR Normal >[address] [facility] Comment on above: Result Comment: Canc elled via OM: Order cancelled - Patient discharged Performed By: #### L 503.7505, L503.6005, L500.4050, L501.4021, L100.0100 #### [facility] [address] [place], [address] GAP Normal 5-[address] [facility] Comment on above: Result Comment: Canc elled via OM: Order cancelled - Patient discharged Performed By: #### L 503.7505, L503.6005, L500.4050, L501.4021, L100.0100 #### [facility] [address] [place], [address] GLU Normal 70-[address] [facility] Comment on above: Result Comment: Canc elled via OM: Order cancelled - Patient discharged Performed By: #### L 503.7505, L503.6005, L500.4050, L501.4021, L100.0100 #### [facility] [address] [place], [address] Potassium Normal 3.3-5.[address] [facility] Comment on above: Result Comment: Canc elled via OM: Order cancelled - Patient discharged Performed By: #### L 503.7505, L503.6005, L500.4050, L501.4021, L100.0100 #### [facility] [address] [place], [address] Basic Metabolic Profile (BMP) Normal 133-[address] [facility] Comment on above: Result Comment: Canc elled via OM: Order cancelled - Patient discharged Performed By: #### L 503.7505, L503.6005, L500.4050, L501.4021, L100.0100 #### [facility] [address] [place], [address] CBC W/Diff, Automatedon 08-0 -2024 Absolute Neut Normal 2.0-7.[address] [facility] Comment on above: Result Comment: Canc elled via OM: Order cancelled - Patient discharged Performed By: #### L 503.7505, L503.6005, L500.4050, L501.4021, L100.0100 #### [facility] [address] [place], [address] HCT Normal 37-[address] [facility] Comment on above: Result Comment: Canc elled via OM: Order cancelled - Patient discharged Performed By: #### L 503.7505, L503.6005, L500.4050, L501.4021, L100.0100 #### [facility] [address] [place], [address] HGB Normal 12.0-15.[address] [facility] Comment on above: Result Comment: Canc elled via OM: Order cancelled - Patient discharged Performed By: #### L 503.7505, L503.6005, L500.4050, L501.4021, L100.0100 #### [facility] [address] [place], [address] MCH Normal 27.0-32.[address] [facility] Comment on above: Result Comment: Canc elled via OM: Order cancelled - Patient discharged Performed By: #### L 503.7505, L503.6005, L500.4050, L501.4021, L100.0100 #### [facility] [address] [place], [address] MCHC Normal 32-[address] [facility] Comment on above: Result Comment: Canc elled via OM: Order cancelled - Patient discharged Performed By: #### L 503.7505, L503.6005, L500.4050, L501.4021, L100.0100 #### [facility] [address] [place], [address] MCV Normal 81-[address] [facility] Comment on above: Result Comment: Canc elled via OM: Order cancelled - Patient discharged Performed By: #### L 503.7505, L503.6005, L500.4050, L501.4021, L100.0100 #### [facility] [address] [place], [address] NEUT% Normal 47-[address] [facility] Comment on above: Result Comment: Canc elled via OM: Order cancelled - Patient discharged Performed By: #### L 503.7505, L503.6005, L500.4050, L501.4021, L100.0100 #### [facility] [address] [place], [address] PLT Normal 150-[address] [facility] Comment on above: Result Comment: Canc elled via OM: Order cancelled - Patient discharged Performed By: #### L 503.7505, L503.6005, L500.4050, L501.4021, L100.0100 #### [facility] [address] [place], [address] RBC Normal 4.2-5.[address] [facility] Comment on above: Result Comment: Canc elled via OM: Order cancelled - Patient discharged Performed By: #### L 503.7505, L503.6005, L500.4050, L501.4021, L100.0100 #### [facility] [address] [place], [address] RDW CV Normal 11.6-14.[address] [facility] Comment on above: Result Comment: Canc elled via OM: Order cancelled - Patient discharged Performed By: #### L 503.7505, L503.6005, L500.4050, L501.4021, L100.0100 #### [facility] [address] [place], [address] RDW SD Normal 35.1-43.[address] [facility] Comment on above: Result Comment: Canc elled via OM: Order cancelled - Patient discharged Performed By: #### L 503.7505, L503.6005, L500.4050, L501.4021, L100.0100 #### [facility] [address] [place], [address] WBC Normal 4.4-11.[address] [facility] Comment on above: Result Comment: Canc elled via OM: Order cancelled - Patient discharged Performed By: #### L 503.7505, L503.6005, L500.4050, L501.4021, L100.0100 #### [facility] [address] [place], [address] Basic Metabolic Profile (BMP )on 02-17-2025 BUN Normal 4-[address] [facility] Comment on above: Result Comment: Canc elled via OM: Order cancelled - Patient discharged Performed By: #### L 503.7505, L503.6005, L500.4050, L501.4021, L100.0100 #### [facility] [address] [place], [address] BUN/CRE Normal 10-[address] [facility] Comment on above: Result Comment: Canc elled via OM: Order cancelled - Patient discharged Performed By: #### L 503.7505, L503.6005, L500.4050, L501.4021, L100.0100 #### [facility] [address] [place], [address] Calcium Normal 7.6-11.[address] [facility] Comment on above: Result Comment: Canc elled via OM: Order cancelled - Patient discharged Performed By: #### L 503.7505, L503.6005, L500.4050, L501.4021, L100.0100 #### [facility] [address] [place], [address] CL Normal 98-[address] [facility] Comment on above: Result Comment: Canc elled via OM: Order cancelled - Patient discharged Performed By: #### L 503.7505, L503.6005, L500.4050, L501.4021, L100.0100 #### [facility] [address] [place], [address] CO2 Normal 21.0-32.[address] [facility] Comment on above: Result Comment: Canc elled via OM: Order cancelled - Patient discharged Performed By: #### L 503.7505, L503.6005, L500.4050, L501.4021, L100.0100 #### [facility] [address] [place], [address] CREAT,SERUM Normal 0.70-1.[address] [facility] Comment on above: Result Comment: Canc elled via OM: Order cancelled - Patient discharged Performed By: #### L 503.7505, L503.6005, L500.4050, L501.4021, L100.0100 #### [facility] [address] [place], [address] eGFR Normal >[address] [facility] Comment on above: Result Comment: Canc elled via OM: Order cancelled - Patient discharged Performed By: #### L 503.7505, L503.6005, L500.4050, L501.4021, L100.0100 #### [facility] [address] [place], [address] GAP Normal 5-[address] [facility] Comment on above: Result Comment: Canc elled via OM: Order cancelled - Patient discharged Performed By: #### L 503.7505, L503.6005, L500.4050, L501.4021, L100.0100 #### [facility] [address] [place], [address] GLU Normal 70-[address] [facility] Comment on above: Result Comment: Canc elled via OM: Order cancelled - Patient discharged Performed By: #### L 503.7505, L503.6005, L500.4050, L501.4021, L100.0100 #### [facility] [address] [place], [address] Potassium Normal 3.3-5.[address] [facility] Comment on above: Result Comment: Canc elled via OM: Order cancelled - Patient discharged Performed By: #### L 503.7505, L503.6005, L500.4050, L501.4021, L100.0100 #### [facility] [address] [place], [address] Basic Metabolic Profile (BMP) Normal 133-[address] [facility] Comment on above: Result Comment: Canc elled via OM: Order cancelled - Patient discharged Performed By: #### L 503.7505, L503.6005, L500.4050, L501.4021, L100.0100 #### [facility] [address] [place], [address] CBC W/Diff, Automatedon 08-0 8-2024 Absolute Neut Normal 2.0-7.[address] [facility] Comment on above: Result Comment: Canc elled via OM: Order cancelled - Patient discharged Performed By: #### L 503.7505, L503.6005, L500.4050, L501.4021, L100.0100 #### [facility] [address] [place], [address] HCT Normal 37-[address] [facility] Comment on above: Result Comment: Canc elled via OM: Order cancelled - Patient discharged Performed By: #### L 503.7505, L503.6005, L500.4050, L501.4021, L100.0100 #### [facility] [address] [place], [address] HGB Normal 12.0-15.[address] [facility] Comment on above: Result Comment: Canc elled via OM: Order cancelled - Patient discharged Performed By: #### L 503.7505, L503.6005, L500.4050, L501.4021, L100.0100 #### [facility] [address] [place], [address] MCH Normal 27.0-32.[address] [facility] Comment on above: Result Comment: Canc elled via OM: Order cancelled - Patient discharged Performed By: #### L 503.7505, L503.6005, L500.4050, L501.4021, L100.0100 #### [facility] [address] [place], [address] MCHC Normal 32-[address] [facility] Comment on above: Result Comment: Canc elled via OM: Order cancelled - Patient discharged Performed By: #### L 503.7505, L503.6005, L500.4050, L501.4021, L100.0100 #### [facility] [address] [place], [address] MCV Normal 81-[address] [facility] Comment on above: Result Comment: Canc elled via OM: Order cancelled - Patient discharged Performed By: #### L 503.7505, L503.6005, L500.4050, L501.4021, L100.0100 #### [facility] [address] [place], [address] NEUT% Normal 47-[address] [facility] Comment on above: Result Comment: Canc elled via OM: Order cancelled - Patient discharged Performed By: #### L 503.7505, L503.6005, L500.4050, L501.4021, L100.0100 #### [facility] [address] [place], [address] PLT Normal 150-[address] [facility] Comment on above: Result Comment: Canc elled via OM: Order cancelled - Patient discharged Performed By: #### L 503.7505, L503.6005, L500.4050, L501.4021, L100.0100 #### [facility] [address] [place], [address] RBC Normal 4.2-5.[address] [facility] Comment on above: Result Comment: Canc elled via OM: Order cancelled - Patient discharged Performed By: #### L 503.7505, L503.6005, L500.4050, L501.4021, L100.0100 #### [facility] [address] [place], [address] RDW CV Normal 11.6-14.[address] [facility] Comment on above: Result Comment: Canc elled via OM: Order cancelled - Patient discharged Performed By: #### L 503.7505, L503.6005, L500.4050, L501.4021, L100.0100 #### [facility] [address] [place], [address] RDW SD Normal 35.1-43.[address] [facility] Comment on above: Result Comment: Canc elled via OM: Order cancelled - Patient discharged Performed By: #### L 503.7505, L503.6005, L500.4050, L501.4021, L100.0100 #### [facility] [address] [place], [address] WBC Normal 4.4-11.[address] [facility] Comment on above: Result Comment: Canc elled via OM: Order cancelled - Patient discharged Performed By: #### L 503.7505, L503.6005, L500.4050, L501.4021, L100.0100 #### [facility] [address] [place], [address] Basic Metabolic Profile (BMP )on 02-16-2025 BUN Normal 4-[address] [facility] Comment on above: Result Comment: Canc elled via OM: Order cancelled - Patient discharged Performed By: #### L 503.7505, L503.6005, L500.4050, L501.4021, L100.0100 #### [facility] [address] [place], [address] BUN/CRE Normal 10-[address] [facility] Comment on above: Result Comment: Canc elled via OM: Order cancelled - Patient discharged Performed By: #### L 503.7505, L503.6005, L500.4050, L501.4021, L100.0100 #### [facility] [address] [place], [address] Calcium Normal 7.6-11.[address] [facility] Comment on above: Result Comment: Canc elled via OM: Order cancelled - Patient discharged Performed By: #### L 503.7505, L503.6005, L500.4050, L501.4021, L100.0100 #### [facility] [address] [place], [address] CL Normal 98-[address] [facility] Comment on above: Result Comment: Canc elled via OM: Order cancelled - Patient discharged Performed By: #### L 503.7505, L503.6005, L500.4050, L501.4021, L100.0100 #### [facility] [address] [place], [address] CO2 Normal 21.0-32.[address] [facility] Comment on above: Result Comment: Canc elled via OM: Order cancelled - Patient discharged Performed By: #### L 503.7505, L503.6005, L500.4050, L501.4021, L100.0100 #### [facility] [address] [place], [address] CREAT,SERUM Normal 0.70-1.[address] [facility] Comment on above: Result Comment: Canc elled via OM: Order cancelled - Patient discharged Performed By: #### L 503.7505, L503.6005, L500.4050, L501.4021, L100.0100 #### [facility] [address] [place], [address] eGFR Normal >[address] [facility] Comment on above: Result Comment: Canc elled via OM: Order cancelled - Patient discharged Performed By: #### L 503.7505, L503.6005, L500.4050, L501.4021, L100.0100 #### [facility] [address] [place], [address] GAP Normal 5-[address] [facility] Comment on above: Result Comment: Canc elled via OM: Order cancelled - Patient discharged Performed By: #### L 503.7505, L503.6005, L500.4050, L501.4021, L100.0100 #### [facility] [address] [place], [address] GLU Normal 70-[address] [facility] Comment on above: Result Comment: Canc elled via OM: Order cancelled - Patient discharged Performed By: #### L 503.7505, L503.6005, L500.4050, L501.4021, L100.0100 #### [facility] [address] [place], [address] Potassium Normal 3.3-5.[address] [facility] Comment on above: Result Comment: Canc elled via OM: Order cancelled - Patient discharged Performed By: #### L 503.7505, L503.6005, L500.4050, L501.4021, L100.0100 #### [facility] [address] [place], [address] Basic Metabolic Profile (BMP) Normal 133-[address] [facility] Comment on above: Result Comment: Canc elled via OM: Order cancelled - Patient discharged Performed By: #### L 503.7505, L503.6005, L500.4050, L501.4021, L100.0100 #### [facility] [address] [place], [address] CBC W/Diff, Automatedon 08-0 -2024 Absolute Neut Normal 2.0-7.[address] [facility] Comment on above: Result Comment: Canc elled via OM: Order cancelled - Patient discharged Performed By: #### L 503.7505, L503.6005, L500.4050, L501.4021, L100.0100 #### [facility] [address] [place], [address] HCT Normal 37-[address] [facility] Comment on above: Result Comment: Canc elled via OM: Order cancelled - Patient discharged Performed By: #### L 503.7505, L503.6005, L500.4050, L501.4021, L100.0100 #### [facility] [address] [place], [address] HGB Normal 12.0-15.[address] [facility] Comment on above: Result Comment: Canc elled via OM: Order cancelled - Patient discharged Performed By: #### L 503.7505, L503.6005, L500.4050, L501.4021, L100.0100 #### [facility] [address] [place], [address] MCH Normal 27.0-32.[address] [facility] Comment on above: Result Comment: Canc elled via OM: Order cancelled - Patient discharged Performed By: #### L 503.7505, L503.6005, L500.4050, L501.4021, L100.0100 #### [facility] [address] [place], [address] MCHC Normal 32-[address] [facility] Comment on above: Result Comment: Canc elled via OM: Order cancelled - Patient discharged Performed By: #### L 503.7505, L503.6005, L500.4050, L501.4021, L100.0100 #### [facility] [address] [place], [address] MCV Normal 81-[address] [facility] Comment on above: Result Comment: Canc elled via OM: Order cancelled - Patient discharged Performed By: #### L 503.7505, L503.6005, L500.4050, L501.4021, L100.0100 #### [facility] [address] [place], [address] NEUT% Normal 47-[address] [facility] Comment on above: Result Comment: Canc elled via OM: Order cancelled - Patient discharged Performed By: #### L 503.7505, L503.6005, L500.4050, L501.4021, L100.0100 #### [facility] [address] [place], [address] PLT Normal 150-[address] [facility] Comment on above: Result Comment: Canc elled via OM: Order cancelled - Patient discharged Performed By: #### L 503.7505, L503.6005, L500.4050, L501.4021, L100.0100 #### [facility] [address] [place], [address] RBC Normal 4.2-5.[address] [facility] Comment on above: Result Comment: Canc elled via OM: Order cancelled - Patient discharged Performed By: #### L 503.7505, L503.6005, L500.4050, L501.4021, L100.0100 #### [facility] [address] [place], [address] RDW CV Normal 11.6-14.[address] [facility] Comment on above: Result Comment: Canc elled via OM: Order cancelled - Patient discharged Performed By: #### L 503.7505, L503.6005, L500.4050, L501.4021, L100.0100 #### [facility] [address] [place], [address] RDW SD Normal 35.1-43.[address] [facility] Comment on above: Result Comment: Canc elled via OM: Order cancelled - Patient discharged Performed By: #### L 503.7505, L503.6005, L500.4050, L501.4021, L100.0100 #### [facility] [address] [place], [address] WBC Normal 4.4-11.[address] [facility] Comment on above: Result Comment: Canc elled via OM: Order cancelled - Patient discharged Performed By: #### L 503.7505, L503.6005, L500.4050, L501.4021, L100.0100 #### [facility] [address] [place], [address] Basic Metabolic Profile (BMP )on 02-15-2025 BUN Normal 4-[address] [facility] Comment on above: Result Comment: Canc elled via OM: Order cancelled - Patient discharged Performed By: #### L 500.2500, L100.0100 #### [facility] [address] [place], [address] BUN/CRE Normal 10-[address] [facility] Comment on above: Result Comment: Canc elled via OM: Order cancelled - Patient discharged Performed By: #### L 500.2500, L100.0100 #### [facility] [address] [place], [address] Calcium Normal 7.6-11.[address] [facility] Comment on above: Result Comment: Canc elled via OM: Order cancelled - Patient discharged Performed By: #### L 500.2500, L100.0100 #### [facility] [address] [place], [address] CL Normal 98-[address] [facility] Comment on above: Result Comment: Canc elled via OM: Order cancelled - Patient discharged Performed By: #### L 500.2500, L100.0100 #### [facility] [address] [place], [address] CO2 Normal 21.0-32.[address] [facility] Comment on above: Result Comment: Canc elled via OM: Order cancelled - Patient discharged Performed By: #### L 500.2500, L100.0100 #### [facility] [address] [place], [address] CREAT,SERUM Normal 0.70-1.[address] [facility] Comment on above: Result Comment: Canc elled via OM: Order cancelled - Patient discharged Performed By: #### L 500.2500, L100.0100 #### [facility] [address] [place], [address] eGFR Normal >[address] [facility] Comment on above: Result Comment: Canc elled via OM: Order cancelled - Patient discharged Performed By: #### L 500.2500, L100.0100 #### [facility] [address] [place], [address] GAP Normal 5-[address] [facility] Comment on above: Result Comment: Canc elled via OM: Order cancelled - Patient discharged Performed By: #### L 500.2500, L100.0100 #### [facility] [address] [place], [address] GLU Normal 70-[address] [facility] Comment on above: Result Comment: Canc elled via OM: Order cancelled - Patient discharged Performed By: #### L 500.2500, L100.0100 #### [facility] [address] [place], [address] Potassium Normal 3.3-5.[address] [facility] Comment on above: Result Comment: Canc elled via OM: Order cancelled - Patient discharged Performed By: #### L 500.2500, L100.0100 #### [facility] [address] [place], [address] Basic Metabolic Profile (BMP) Normal 133-[address] [facility] Comment on above: Result Comment: Canc elled via OM: Order cancelled - Patient discharged Performed By: #### L 500.2500, L100.0100 #### [facility] [address] [place], [address] CBC W/Diff, Automatedon 08-0 -2024 Absolute Neut Normal 2.0-7.[address] [facility] Comment on above: Result Comment: Canc elled via OM: Order cancelled - Patient discharged Performed By: #### L 500.2500, L100.0100 #### [facility] [address] [place], [address] HCT Normal 37-[address] [facility] Comment on above: Result Comment: Canc elled via OM: Order cancelled - Patient discharged Performed By: #### L 500.2500, L100.0100 #### [facility] [address] [place], [address] HGB Normal 12.0-15.[address] [facility] Comment on above: Result Comment: Canc elled via OM: Order cancelled - Patient discharged Performed By: #### L 500.2500, L100.0100 #### [facility] [address] [place], [address] MCH Normal 27.0-32.[address] [facility] Comment on above: Result Comment: Canc elled via OM: Order cancelled - Patient discharged Performed By: #### L 500.2500, L100.0100 #### [facility] [address] [place], [address] MCHC Normal 32-[address] [facility] Comment on above: Result Comment: Canc elled via OM: Order cancelled - Patient discharged Performed By: #### L 500.2500, L100.0100 #### [facility] [address] [place], [address] MCV Normal 81-[address] [facility] Comment on above: Result Comment: Canc elled via OM: Order cancelled - Patient discharged Performed By: #### L 500.2500, L100.0100 #### [facility] [address] [place], [address] NEUT% Normal 47-[address] [facility] Comment on above: Result Comment: Canc elled via OM: Order cancelled - Patient discharged Performed By: #### L 500.2500, L100.0100 #### [facility] [address] [place], [address] PLT Normal 150-[address] [facility] Comment on above: Result Comment: Canc elled via OM: Order cancelled - Patient discharged Performed By: #### L 500.2500, L100.0100 #### [facility] [address] [place], [address] RBC Normal 4.2-5.[address] [facility] Comment on above: Result Comment: Canc elled via OM: Order cancelled - Patient discharged Performed By: #### L 500.2500, L100.0100 #### [facility] [address] [place], [address] RDW CV Normal 11.6-14.[address] [facility] Comment on above: Result Comment: Canc elled via OM: Order cancelled - Patient discharged Performed By: #### L 500.2500, L100.0100 #### [facility] [address] [place], [address] RDW SD Normal 35.1-43.[address] [facility] Comment on above: Result Comment: Canc elled via OM: Order cancelled - Patient discharged Performed By: #### L 500.2500, L100.0100 #### [facility] [address] [place], [address] WBC Normal 4.4-11.[address] [facility] Comment on above: Result Comment: Canc elled via OM: Order cancelled - Patient discharged Performed By: #### L 500.2500, L100.0100 #### [facility] [address] [place], [address] Basic Metabolic Profile (BMP )on 02-14-2025 BUN Normal 4-[address] [facility] Comment on above: Result Comment: Canc elled via OM: Order cancelled - Patient discharged Performed By: #### L 503.7505, L503.6005, L500.4050, L501.4021, L100.0100 #### [facility] [address] [place], [address] BUN/CRE Normal 10-[address] [facility] Comment on above: Result Comment: Canc elled via OM: Order cancelled - Patient discharged Performed By: #### L 503.7505, L503.6005, L500.4050, L501.4021, L100.0100 #### [facility] [address] [place], [address] Calcium Normal 7.6-11.[address] [facility] Comment on above: Result Comment: Canc elled via OM: Order cancelled - Patient discharged Performed By: #### L 503.7505, L503.6005, L500.4050, L501.4021, L100.0100 #### [facility] [address] [place], [address] CL Normal 98-[address] [facility] Comment on above: Result Comment: Canc elled via OM: Order cancelled - Patient discharged Performed By: #### L 503.7505, L503.6005, L500.4050, L501.4021, L100.0100 #### [facility] [address] [place], [address] CO2 Normal 21.0-32.[address] [facility] Comment on above: Result Comment: Canc elled via OM: Order cancelled - Patient discharged Performed By: #### L 503.7505, L503.6005, L500.4050, L501.4021, L100.0100 #### [facility] [address] [place], [address] CREAT,SERUM Normal 0.70-1.[address] [facility] Comment on above: Result Comment: Canc elled via OM: Order cancelled - Patient discharged Performed By: #### L 503.7505, L503.6005, L500.4050, L501.4021, L100.0100 #### [facility] [address] [place], [address] eGFR Normal >[address] [facility] Comment on above: Result Comment: Canc elled via OM: Order cancelled - Patient discharged Performed By: #### L 503.7505, L503.6005, L500.4050, L501.4021, L100.0100 #### [facility] [address] [place], [address] GAP Normal 5-[address] [facility] Comment on above: Result Comment: Canc elled via OM: Order cancelled - Patient discharged Performed By: #### L 503.7505, L503.6005, L500.4050, L501.4021, L100.0100 #### [facility] [address] [place], [address] GLU Normal 70-[address] [facility] Comment on above: Result Comment: Canc elled via OM: Order cancelled - Patient discharged Performed By: #### L 503.7505, L503.6005, L500.4050, L501.4021, L100.0100 #### [facility] [address] [place], [address] Potassium Normal 3.3-5.[address] [facility] Comment on above: Result Comment: Canc elled via OM: Order cancelled - Patient discharged Performed By: #### L 503.7505, L503.6005, L500.4050, L501.4021, L100.0100 #### [facility] [address] [place], [address] Basic Metabolic Profile (BMP) Normal 133-[address] [facility] Comment on above: Result Comment: Canc elled via OM: Order cancelled - Patient discharged Performed By: #### L 503.7505, L503.6005, L500.4050, L501.4021, L100.0100 #### [facility] [address] [place], [address] Basic metabolic 2000 panelon 02-14-2025 Anion gap [Moles/Vol] 13 mmol/L Normal 8-15 [facility] Comment on above: Order Comment: Speci men Type: BLOOD SPECIMENOrdering Facility: [facility] Address: [address] [place] [address] Performed By: #### 2 276-4, 51164-4, 56791-8 ####[facility] [id number] [place] [address] [place] Calcium [Mass/Vol] 9.5 mg/dL Normal 8.5-10.2 [facility] Comment on above: Order Comment: Speci men Type: BLOOD SPECIMENOrdering Facility: [facility] Address: [address] [place], [place] [address] Performed By: #### 2 276-4, 39341-2, 04583-2 ####[facility] [id number] [place] [address] [place] Chloride [Moles/Vol] 100 mmol/L Normal 98-107 [facility] Comment on above: Order Comment: Speci men Type: BLOOD SPECIMENOrdering Facility: [facility] Address: [address] [place] [address] Performed By: #### 2 276-4, 84708-0, 18676-4 ####[facility] [id number] [address] [address] [place] CO2 [Moles/Vol] 22 mmol/L Normal 22-30 [facility] Comment on above: Order Comment: Speci men Type: BLOOD SPECIMENOrdering Facility: [facility] Address: [address] [place] [address] Performed By: #### 2 276-4, , ####[facility] [id number] [address] [address] [place] Creatinine [Mass/Vol] 1.43 mg/dL High 0.58-0.96 [facility] Comment on above: Order Comment: Speci men Type: BLOOD SPECIMENOrdering Facility: [facility] Address: [address] [place] [address] Performed By: #### 2 276-4, , ####[facility] [id number] [address] [address] [place] eGFRcr SerPlBld CKD-EPI 2020 36 mL/min/1.73m??? Low >=60 [facility] Comment on above: Order Comment: Speci men Type: BLOOD SPECIMENOrdering Facility: [facility] Address: [address] [place] [address] Result Comment: Martha mated Glomerular Filtration Rate [...] reflect actual GFR. Performed By: #### 2 276-4, 73696-2, 57379-7 ####[facility] [id number] [address] [address] [place] Glucose [Mass/Vol] 73 mg/dL Low 74-99 [facility] Comment on above: Order Comment: Speci men Type: BLOOD SPECIMENOrdering Facility: [facility] Address: [address] [place] [address] Result Comment: The [place] [employer] (ADA) provides guidance for cutoff [...] Standards of Medical Care in Diabetes 2016, [place] [employer]. Diabetes Care. 2016.39(Suppl 1). Performed By: #### 2 276-4, 14555-8, 24408-7 ####[facility] [id number] [place] [address] [place] Potassium [Moles/Vol] 4.3 mmol/L Normal 3.7-5.1 [facility] Comment on above: Order Comment: Noheliai men Type: BLOOD SPECIMENOrdering Facility: [facility] Address: [address] [place] [address] Performed By: #### 2 276-4, 02304-6, 14616-5 ####[facility] [id number] [place] [address] [place] Sodium [Moles/Vol] 135 mmol/L Low 136-144 [facility] Comment on above: Order Comment: Speci men Type: BLOOD SPECIMENOrdering Facility: [facility] Address: [address] [place] [address] Performed By: #### 2 276-4, 30228-6, 11412-1 ####[facility] [id number] [address] [address] [place] Urea nitrogen [Mass/Vol] 20 mg/dL Normal 7-21 [facility] Comment on above: Order Comment: Speci men Type: BLOOD SPECIMENOrdering Facility: [facility] Address: [address] [place] [address] Performed By: #### 2 276-4, 76337-6, 75796-0 ####[facility] [id number] [place] [address] [place] CBC W Auto Differential pane l (Bld)on 02-14-2025 Basophils (Bld) [#/Vol] 0.05 10*3/uL Normal <0.11 [facility] Comment on above: Order Comment: Speci men Type: BLOOD SPECIMENOrdering Facility: [facility] Address: [address] [place] [address] Performed By: #### 5 7021-8 ####[facility] [id number] [address] [place] Basophils/100 WBC (Bld) 0.8 % Normal C [facility] Comment on above: Order Comment: Speci men Type: BLOOD SPECIMENOrdering Facility: [facility] Address: [address] [place] [address] Performed By: #### 5 7021-8 ####[facility] [id number] [address] STATES [place] [facility] Differential cell count method Nom (Bld) Auto Normal [facility] Comment on above: Order Comment: Speci men Type: BLOOD SPECIMENOrdering Facility: [facility] Address: [address] [place] [address] Performed By: #### 5 7021-8 ####[facility] [id number] [place] [address] [place] Eosinophils (Bld) [#/Vol] 0.20 10*3/uL Normal <0.46 [facility] Comment on above: Order Comment: Speci men Type: BLOOD SPECIMENOrdering Facility: [facility] Address: [address] [place] [address] Performed By: #### 5 7021-8 ####[facility] [id number] [place] [address] [place] Eosinophils/100 WBC (Bld) 3.4 % Normal [facility] Comment on above: Order Comment: Speci men Type: BLOOD SPECIMENOrdering Facility: [facility] Address: [address] [place] [address] Performed By: #### 5 7021-8 ####[facility] [id number] [place] [address] [place] Erythrocyte distribution width (RBC) [Ratio] 21.2 % High 11.5-15.0 [facility] Comment on above: Order Comment: Speci men Type: BLOOD SPECIMENOrdering Facility: [facility] Address: [address] [place] [address] Performed By: #### 5 7021-8 ####[facility] [id number] [place] [address] [place] Hematocrit (Bld) [Volume fraction] 33.8 % Low 36.0-46.0 [facility] Comment on above: Order Comment: Speci men Type: BLOOD SPECIMENOrdering Facility: [facility] Address: [address] [place] [address] Performed By: #### 5 7021-8 ####[facility] [id number] [place] [address] [place] Hemoglobin (Bld) [Mass/Vol] 9.8 g/dL Low 11.5-15.5 [facility] Comment on above: Order Comment: Speci men Type: BLOOD SPECIMENOrdering Facility: [facility] Address: [address] [place] [address] Performed By: #### 5 7021-8 ####[facility] [id number] [address] [place] [address] [place] Immature granulocytes (Bld) [#/Vol] 10*3/uL Normal <0.10 [facility] Comment on above: Order Comment: Speci men Type: BLOOD SPECIMENOrdering Facility: [facility] Address: [address] [place] [address] Performed By: #### 5 7021-8 ####[facility] [id number] [address], [facility] [place] Immature granulocytes/100 WBC (Bld) 0.3 % Normal [facility] Comment on above: Order Comment: Speci men Type: BLOOD SPECIMENOrdering Facility: [facility] Address: [address] [place] [address] Performed By: #### 5 7021-8 ####[facility] [id number] [address], [place] [address] [place] Lymphocytes (Bld) [#/Vol] 1.47 10*3/uL Normal 1.00-4.00 [facility] Comment on above: Order Comment: Speci men Type: BLOOD SPECIMENOrdering Facility: [facility] Address: [address] [place] [address] Performed By: #### 5 7021-8 ####[facility] [id number] [address], [facility] [place] Lymphocytes/100 WBC (Bld) 24.9 % Normal [facility] Comment on above: Order Comment: Speci men Type: BLOOD SPECIMENOrdering Facility: [facility] Address: [address] [place] [address] Performed By: #### 5 7021-8 ####[facility] [id number] [address] [place] [address] [place] MCH (RBC) [Entitic mass] 23.7 pg Low 26.0-34.0 [facility] Comment on above: Order Comment: Speci men Type: BLOOD SPECIMENOrdering Facility: [facility] Address: [address] [place] [address] Performed By: #### 5 7021-8 ####[facility] [id number] [place] [address] [place] MCHC (RBC) [Mass/Vol] 29.0 g/dL Low 30.5-36.0 [facility] Comment on above: Order Comment: Speci men Type: BLOOD SPECIMENOrdering Facility: [facility] Address: [address] [place] [address] Performed By: #### 5 7021-8 ####[facility] [id number] [place] [address] [place] MCV (RBC) [Entitic vol] 81.8 fL Normal 80.0-100.[address] [facility] Comment on above: Order Comment: Speci men Type: BLOOD SPECIMENOrdering Facility: [facility] Address: [address] [place] [address] Performed By: #### 5 7021-8 ####[facility] [id number] [place] [address] [place] Monocytes (Bld) [#/Vol] 0.75 10*3/uL Normal <0.87 [facility] Comment on above: Order Comment: Speci men Type: BLOOD SPECIMENOrdering Facility: [facility] Address: [address] [place] [address] Performed By: #### 5 7021-8 ####[facility] [id number] [place] [address] [place] Monocytes/100 WBC (Bld) 12.7 % Normal C [facility] Comment on above: Order Comment: Speci men Type: BLOOD SPECIMENOrdering Facility: [facility] Address: [address] [place] [address] Performed By: #### 5 7021-8 ####[facility] [id number] [address] [address] [place] Neutrophils (Bld) [#/Vol] 3.41 10*3/uL Normal 1.45-7.50 [facility] Comment on above: Order Comment: Speci men Type: BLOOD SPECIMENOrdering Facility: [facility] Address: [address] [place] [address] Performed By: #### 5 7021-8 ####[facility] [id number] [place] [address] [place] Neutrophils/100 WBC (Bld) 57.9 % Normal [facility] Comment on above: Order Comment: Speci men Type: BLOOD SPECIMENOrdering Facility: [facility] Address: [address] [place] [address] Performed By: #### 5 7021-8 ####[facility] [id number] [place] [address] [place] Nucleated RBC (Bld) [#/Vol] 10*3/uL Normal <0.01 [facility] Comment on above: Order Comment: Speci men Type: BLOOD SPECIMENOrdering Facility: [facility] Address: [address] [place] [address] Performed By: #### 5 7021-8 ####[facility] [id number] [place] [address] [place] Nucleated RBC/100 WBC (Bld) [Ratio] 0.0 /100 WBC Normal [facility] Comment on above: Order Comment: Speci men Type: BLOOD SPECIMENOrdering Facility: [facility] Address: [address] [place] [address] Performed By: #### 5 7021-8 ####[facility] [id number] [place] [id number] [place] Platelet mean volume (Bld) [Entitic vol] 10.6 fL Normal 9.0-12.7 [facility] Comment on above: Order Comment: Speci men Type: BLOOD SPECIMENOrdering Facility: [facility] Address: [address] [place] [address] Performed By: #### 5 7021-8 ####[facility] [id number] [place] [address] [place] Platelets (Bld) [#/Vol] 354 10*3/uL Normal 150-400 [facility] Comment on above: Order Comment: Speci men Type: BLOOD SPECIMENOrdering Facility: [facility] Address: [address] [place] [address] Performed By: #### 5 7021-8 ####[facility] [id number] [place] [address] [place] RBC (Bld) [#/Vol] 4.13 10*6/uL Normal 3.90-5.20 [facility] Comment on above: Order Comment: Speci men Type: BLOOD SPECIMENOrdering Facility: [facility] Address: [address] [place] [address] Performed By: #### 5 7021-8 ####[facility] [id number] [place] [address] [place] WBC (Bld) [#/Vol] 5.90 10*3/uL Normal 3.70-11.00 [facility] Comment on above: Order Comment: Speci men Type: BLOOD SPECIMENOrdering Facility: [facility] Address: [address] [place] [address] Performed By: #### 5 7021-8 ####[facility] [id number] [place] [id number] [place] CBC W/Diff, Automatedon 08-0 Absolute Neut Normal 2.0-7.[address] [facility] Comment on above: Result Comment: Canc elled via OM: Order cancelled - Patient discharged Performed By: #### L 503.7505, L503.6005, L500.4050, L501.4021, L100.0100 #### [facility] [address] [place], [address] HCT Normal 37-[address] [facility] Comment on above: Result Comment: Canc elled via OM: Order cancelled - Patient discharged Performed By: #### L 503.7505, L503.6005, L500.4050, L501.4021, L100.0100 #### [facility] [address] [place], [address] HGB Normal 12.0-15.[address] [facility] Comment on above: Result Comment: Canc elled via OM: Order cancelled - Patient discharged Performed By: #### L 503.7505, L503.6005, L500.4050, L501.4021, L100.0100 #### [facility] [address] [place], [address] MCH Normal 27.0-32.[address] [facility] Comment on above: Result Comment: Canc elled via OM: Order cancelled - Patient discharged Performed By: #### L 503.7505, L503.6005, L500.4050, L501.4021, L100.0100 #### [facility] [address] [place], [address] MCHC Normal 32-[address] [facility] Comment on above: Result Comment: Canc elled via OM: Order cancelled - Patient discharged Performed By: #### L 503.7505, L503.6005, L500.4050, L501.4021, L100.0100 #### [facility] [address] [place], [address] MCV Normal 81-[address] [facility] Comment on above: Result Comment: Canc elled via OM: Order cancelled - Patient discharged Performed By: #### L 503.7505, L503.6005, L500.4050, L501.4021, L100.0100 #### [facility] [address] [place], [address] NEUT% Normal 47-[address] [facility] Comment on above: Result Comment: Canc elled via OM: Order cancelled - Patient discharged Performed By: #### L 503.7505, L503.6005, L500.4050, L501.4021, L100.0100 #### [facility] [address] [place], [address] PLT Normal 150-[address] [facility] Comment on above: Result Comment: Canc elled via OM: Order cancelled - Patient discharged Performed By: #### L 503.7505, L503.6005, L500.4050, L501.4021, L100.0100 #### [facility] [address] [place], [address] RBC Normal 4.2-5.[address] [facility] Comment on above: Result Comment: Canc elled via OM: Order cancelled - Patient discharged Performed By: #### L 503.7505, L503.6005, L500.4050, L501.4021, L100.0100 #### [facility] [address] [place], [address] RDW CV Normal 11.6-14.[address] [facility] Comment on above: Result Comment: Canc elled via OM: Order cancelled - Patient discharged Performed By: #### L 503.7505, L503.6005, L500.4050, L501.4021, L100.0100 #### [facility] [address] [place], [address] RDW SD Normal 35.1-43.[address] [facility] Comment on above: Result Comment: Canc elled via OM: Order cancelled - Patient discharged Performed By: #### L 503.7505, L503.6005, L500.4050, L501.4021, L100.0100 #### [facility] [address] [place], [address] WBC Normal 4.4-11.[address] [facility] Comment on above: Result Comment: Canc elled via OM: Order cancelled - Patient discharged Performed By: #### L 503.7505, L503.6005, L500.4050, L501.4021, L100.0100 #### [facility] [address] [place], [address] CNOVon 02-14-2025 CNOV Office Visit ([facility]) GUDELIA GUPTA ([id number]) 1940 F Date Time Provider Department 02/14/25 1:00 PM SHARLENE CHERRY During your visit today, we recorded the following information about you: Pulse Blood pressure Weight 80/minute 128/66 84 kg Sharlene Cherry APRN.CNP 02/14/2025 1:29 PM Signed Transitional Care Management TCM Eligibility Documentation The following information was gathered during patient outreach 02/13/2025 Date of Outreach: Outreach Attempt 1: Contact Made Date of Discharge 02/10/2025 Provider Documentation Gudelia Gupta is a 84 year old female here today for a follow up from recent hospitalization. I have reviewed the patient's hospital course including discharge summary, discharge medications, and follow up needs with the patient and any family members present at today's visit. HPI Patient presents for hospital follow up. Patient was initially seen in office 02/06 and due to labs was referred to [facility] where she was found to be in acute on chronic heart failure. Patient was hospitalized 02/08 to 02/11 where she was diuresed with IV lasix. Echo shows EF 65% with severe pulmonary HTN. Patient was evaluated by speech and GI for dysphagia and OP follow up was recommended with Dr. Leroy. Has follow up with [facility]. Patient reports she is no longer Shortness of Breath and feels she is back to her baseline. BP 128/66 Pulse 80 Wt 84 kg (185 lb 3 oz) SpO2 98% BMI 29.89 kg/m? Physical Exam PHYSICAL EXAMINATION: General appearance: Well appearing, alert, in no acute distress, well-hydrated, well nourished. Lungs: Lungs clear to auscultation. No wheezing, rhonchi, rales. Heart: RRR without murmur, gallop, or rubs. No ectopy Extremities: No deformities, edema, skin discoloration, clubbing or cyanosis. Good capillary refill. , Pulses: 2+ Peripheral pulses: Normal Neuro: Gait normal. Reflexes normal and symmetric. Sensation grossly intact. ASSESSMENT/PLAN: 1. Chronic diastolic CHF (congestive heart failure) (HCC) - ICD9: 428.32, 428.0, ICD10: I50.32 (primary diagnosis) - Continue current medications - Encouraged sodium restriction - Encouraged daily weights -Follows with Dr. Root, appt 04/27 for follow up and pacer check. 2. Anemia, unspecified type - ICD9: 285.9, ICD10: D64.9 - COMPLETE BLOOD COUNT AND DIFFERENTIAL 3. Stage 3a chronic kidney disease (HCC) - ICD9: 585.3, ICD10: N18.31 - eGFR: 39 Stable - Counseled on avoiding NSAIDs, adequate hydration - Counseled on low sodium diet - BASIC METABOLIC PANEL 4. Secondary pulmonary arterial hypertension (HCC) - ICD9: 416.8, ICD10: I27.21 -Follows with Dr. Root, appt 04/27 for follow up and pacer check. 5. Iron deficiency anemia, unspecified iron deficiency anemia type - ICD9: 280.9, ICD10: D50.9 -Continue supplementation 6. Hospital discharge follow-up - ICD9: V67.59, ICD10: Z09 -Stable 7. Paroxysmal atrial fibrillation (HCC) - ICD9: 427.31, ICD10: I48.0 -Follows with Dr. Root, appt 04/27 for follow up and pacer check. Sharlene Cherry, DEANNA.Sharlene Diaz APRN.DICK 02/14/2025 1:20 PM Addendum If weight gain of 3 lbs in 1 day or 5 lbs in 3 days contact cardiology immediately. May use colace or miralax for constipation. Miralax 1 capful in 6-8 oz of water of juice daily as needed for constipation. Dr. Root 04/27/2025 at 1230 for pacer check and follow up appointment Allergies As of Date: 02/14/2025 Noted Allergy Reaction POISON FANY 10/17/2005 SULFA (SULFONAMIDE ANTIBIOTICS) 10/17/2005 4 - Hives Date Reviewed: 02/14/2025 Reviewed by: Alicia Boyce MA - Fully Assessed Reason for Visit: Hospital F/U [57] Primary Visit Diagnosis:Chronic diastolic CHF (congestive heart failure) (HCC) [I50.32] Other Visit Diagnoses:Anemia, unspecified type [D64.9] Stage 3a chronic kidney disease (HCC) [N18.31] Secondary pulmonary arterial hypertension (HCC) [I27.21] Iron deficiency anemia, unspecified iron deficiency anemia type [D50.9] Hospital discharge follow-up [Z09] Paroxysmal atrial fibrillation (HCC) [I48.0] Order(s):COMPLETE BLOOD COUNT AND DIFFERENTIAL [SQCBCDIF] Order #: [id number] FUTURE BASIC METABOLIC PANEL [SQBMP] Order #: [id number] FUTURE Prescriptions as of 02/14/2025 - ciprofloxacin HCl (CIPRO) 500 mg tablet Take 1 tablet by mouth two times a day for 7 days. - ferrous sulfate 325 mg (65 mg iron) tablet Take 1 tablet by mouth two times a day with meals. - ascorbic acid, vitamin C, (VITAMIN C) 500 mg tablet Take 1 tablet by mouth two times a day. - empagliflozin (JARDIANCE) 10 mg tablet Take 1 tablet by mouth once daily. Take 1 tablet once daily in the morning - levothyroxine (SYNTHROID) 100 mcg tablet Take 1 tablet by mouth once daily. - amitriptyline (ELAVIL) 50 mg tablet Take 1 tablet by mouth daily at bedtime. - glimepiride (AMARYL) 4 mg tablet Take 0.5 table (more content not included)... Normal [facility] Ferritin SerPl-mCncon 2024 Ferritin [Mass/Vol] 66.7 ng/mL Normal 14.7-205.1 [facility] Comment on above: Order Comment: Speci men Type: BLOOD SPECIMENOrdering Facility: [facility] Address: [address] [place] [address] Performed By: #### 2 276-4, 33023-5, 03246-1 ####[facility] [id number] [address] [address] [place] Iron and Iron binding capaci ty panelon 02-14-2025 Iron [Mass/Vol] 35 ug/dL Low 41-186 [facility] Comment on above: Order Comment: Speci men Type: BLOOD SPECIMENOrdering Facility: [facility] Address: [address] [place] [address] Performed By: #### 2 276-4, 30290-2, 83118-7 ####[facility] LAB[facility]IA [id number] [place] [id number] [place] Iron binding capacity [Mass/Vol] 392 ug/dL High 232-386 [facility] Comment on above: Order Comment: Speci men Type: BLOOD SPECIMENOrdering Facility: [facility] Address: [address] [place] [address] Performed By: #### 2 276-4, 26103-7, 90366-3 ####[facility] LAB[facility] [id number] [place] [id number] [place] Iron/TIBC [Molar ratio] 8.9 % Low 15.0-57.[address] [facility] Comment on above: Order Comment: Speci men Type: BLOOD SPECIMENOrdering Facility: [facility] Address: [address] [place] [address] Performed By: #### 2 276-4, 90779-1, 10084-1 ####[facility] LABCLIA [id number] [address] [address] [place] Basic Metabolic Profile (BMP )on 02-13-2025 BUN Normal 4-[address] [facility] Comment on above: Result Comment: Canc elled via OM: Order cancelled - Patient discharged Performed By: #### L 500.2500, L100.0100 #### [facility] [address] [place], [address] BUN/CRE Normal 10-[address] [facility] Comment on above: Result Comment: Canc elled via OM: Order cancelled - Patient discharged Performed By: #### L 500.2500, L100.0100 #### [facility] [address] [place], [address] Calcium Normal 7.6-11.[address] [facility] Comment on above: Result Comment: Canc elled via OM: Order cancelled - Patient discharged Performed By: #### L 500.2500, L100.0100 #### [facility] [address] [place], [address] CL Normal 98-[address] [facility] Comment on above: Result Comment: Canc elled via OM: Order cancelled - Patient discharged Performed By: #### L 500.2500, L100.0100 #### [facility] [address] [place], [address] CO2 Normal 21.0-32.[address] [facility] Comment on above: Result Comment: Canc elled via OM: Order cancelled - Patient discharged Performed By: #### L 500.2500, L100.0100 #### [facility] [address] [place], [address] CREAT,SERUM Normal 0.70-1.[address] [facility] Comment on above: Result Comment: Canc elled via OM: Order cancelled - Patient discharged Performed By: #### L 500.2500, L100.0100 #### [facility] [address] [place], [address] eGFR Normal >[address] [facility] Comment on above: Result Comment: Canc elled via OM: Order cancelled - Patient discharged Performed By: #### L 500.2500, L100.0100 #### [facility] [address] [place], [address] GAP Normal 5-[address] [facility] Comment on above: Result Comment: Canc elled via OM: Order cancelled - Patient discharged Performed By: #### L 500.2500, L100.0100 #### [facility] [address] [place], [address] GLU Normal 70-[address] [facility] Comment on above: Result Comment: Canc elled via OM: Order cancelled - Patient discharged Performed By: #### L 500.2500, L100.0100 #### [facility] [address] [place], [address] Potassium Normal 3.3-5.[address] [facility] Comment on above: Result Comment: Canc elled via OM: Order cancelled - Patient discharged Performed By: #### L 500.2500, L100.0100 #### [facility] [address] [place], [address] Basic Metabolic Profile (BMP) Normal 133-[address] [facility] Comment on above: Result Comment: Canc elled via OM: Order cancelled - Patient discharged Performed By: #### L 500.2500, L100.0100 #### [facility] [address] [place], [address] CBC W/Diff, Automatedon 08-0 Absolute Neut Normal 2.0-7.[address] [facility] Comment on above: Result Comment: Canc elled via OM: Order cancelled - Patient discharged Performed By: #### L 500.2500, L100.0100 #### [facility] [address] [place], [address] HCT Normal 37-[address] [facility] Comment on above: Result Comment: Canc elled via OM: Order cancelled - Patient discharged Performed By: #### L 500.2500, L100.0100 #### [facility] [address] [place], [address] HGB Normal 12.0-15.[address] [facility] Comment on above: Result Comment: Canc elled via OM: Order cancelled - Patient discharged Performed By: #### L 500.2500, L100.0100 #### [facility] [address] [place], [address] MCH Normal 27.0-32.[address] [facility] Comment on above: Result Comment: Canc elled via OM: Order cancelled - Patient discharged Performed By: #### L 500.2500, L100.0100 #### [facility] [address] [place], [address] MCHC Normal 32-[address] [facility] Comment on above: Result Comment: Canc elled via OM: Order cancelled - Patient discharged Performed By: #### L 500.2500, L100.0100 #### [facility] [address] [place], [address] MCV Normal 81-[address] [facility] Comment on above: Result Comment: Canc elled via OM: Order cancelled - Patient discharged Performed By: #### L 500.2500, L100.0100 #### [facility] [address] [place], [address] NEUT% Normal 47-[address] [facility] Comment on above: Result Comment: Canc elled via OM: Order cancelled - Patient discharged Performed By: #### L 500.2500, L100.0100 #### [facility] [address] [place], [address] PLT Normal 150-[address] [facility] Comment on above: Result Comment: Canc elled via OM: Order cancelled - Patient discharged Performed By: #### L 500.2500, L100.0100 #### [facility] [address] [place], [address] RBC Normal 4.2-5.[address] [facility] Comment on above: Result Comment: Canc elled via OM: Order cancelled - Patient discharged Performed By: #### L 500.2500, L100.0100 #### [facility] [address] [place], [address] RDW CV Normal 11.6-14.[address] [facility] Comment on above: Result Comment: Canc elled via OM: Order cancelled - Patient discharged Performed By: #### L 500.2500, L100.0100 #### [facility] [address] [place], [address] RDW SD Normal 35.1-43.[address] [facility] Comment on above: Result Comment: Canc elled via OM: Order cancelled - Patient discharged Performed By: #### L 500.2500, L100.0100 #### [facility] [address] [place], [address] WBC Normal 4.4-11.[address] [facility] Comment on above: Result Comment: Canc elled via OM: Order cancelled - Patient discharged Performed By: #### L 500.2500, L100.0100 #### [facility] [address] [place], [address] [facility] ([id number]) 1940 F Date Time Provider Department 02/13/25 [facility] During your visit today, we recorded the following information about you: Rose Manuel LPN 02/13/2025 3:04 PM Signed Maryann with [facility] Nursing calls for the followin) Pt is taking Cipro for uti for another week - shows it inhibits the metabolizing of simvastatin. 2) Amitriptyline/potass ium - amitriptyline delays emptying of GI, potassium will sit too long in GI track. 3) POC: Nursing will see pt once a week x 4 weeks to educate pt on CHF and medications. Call Phan @ [phone] with 's messages as Maryann will be off work. ADRIEL Minaya Mark D, MD 02/13/2025 3:18 PM Signed Noted; OK to continue current medication, will monitor for any issues. OK for nursing visits as requested MD Bong Taylor Kathryn, MA 02/13/2025 3:24 PM Signed Below left on Phan's confidential VM. Kandi Woody MA Allergies As of Date: 02/13/2025 Noted Allergy Reaction POISON FANY 10/17/2005 SULFA (SULFONAMIDE ANTIBIOTICS) 10/17/2005 4 - Hives Date Reviewed: 02/06/2025 Reviewed by: Kandi Woody MA - Fully Assessed Reason for Visit: medication interactions [Other] POC [Other] Prescriptions as of 02/13/2025 - ciprofloxacin HCl (CIPRO) 500 mg tablet Take 1 tablet by mouth two times a day for 7 days. - ferrous sulfate 325 mg (65 mg iron) tablet Take 1 tablet by mouth two times a day with meals. - ascorbic acid, vitamin C, (VITAMIN C) 500 mg tablet Take 1 tablet by mouth two times a day. - empagliflozin (JARDIANCE) 10 mg tablet Take [...] 1 capsule by mouth once daily. - oxyCODONE-acetaminop hen (PERCOCET) 5-325 mg tablet TAKE 1 TO [...] eyes twice daily. - blood sugar diagnostic ([email or web address] VERIO TEST STRIPS) test strip TEST BLOOD [...] knee pain. Problem List As Of Date 02/13/2025 Noted Resolved Contact dermatitis and other eczema, due to uns*10/17/2005 08/12/2010 Hyperlipidemia [E78.5] 07/20/2007 GOUT NOS [M10.9] 07/20/2007 Gastritis/duodenitis [K29.70, K29.90] 10/04/2008 08/13/2011 Routine general medical examination at [facility]*10/04/2008 08/12/2010 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, M94.9] 10/31/2008 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HCC) [F33* Atherosclerotic heart disease of [place]* Essential hypertension, benign [I10] 08/13/2011 S/P angioplasty with stent 11/13/2012 Backache, unspecified [M54.9] 11/08/2013 GERD (gastroesophageal reflux disease) [K21.9] 10/03/2014 Paroxysmal atrial fibrillation (HCC) [I48.0] 09/18/2015 Pacemaker [Z95.0] 09/18/2015 Iron deficiency anemia [D50.9] 08/19/2016 Malabsorption of iron [K90.9] 08/19/2016 12/01/2016 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 Normal [facility] Basic Metabolic Profile (BMP )on 02-12-2025 BUN Normal - [facility] Comment on above: Result Comment: Canc elled via OM: Order cancelled - Patient discharged Performed By: #### L 500.2500, L100.0100 #### [facility] [address] [place], [address] BUN/CRE Normal 10-[address] [facility] Comment on above: Result Comment: Canc elled via OM: Order cancelled - Patient discharged Performed By: #### L 500.2500, L100.0100 #### [facility] [address] [place], [address] Calcium Normal 7.6-11.[address] [facility] Comment on above: Result Comment: Canc elled via OM: Order cancelled - Patient discharged Performed By: #### L 500.2500, L100.0100 #### [facility] [address] [place], [address] CL Normal 98-[address] [facility] Comment on above: Result Comment: Canc elled via OM: Order cancelled - Patient discharged Performed By: #### L 500.2500, L100.0100 #### [facility] [address] [place], [address] CO2 Normal 21.0-32.[address] [facility] Comment on above: Result Comment: Canc elled via OM: Order cancelled - Patient discharged Performed By: #### L 500.2500, L100.0100 #### [facility] [address] [place], [address] CREAT,SERUM Normal 0.70-1.[address] [facility] Comment on above: Result Comment: Canc elled via OM: Order cancelled - Patient discharged Performed By: #### L 500.2500, L100.0100 #### [facility] [address] [place], [address] eGFR Normal >[address] [facility] Comment on above: Result Comment: Canc elled via OM: Order cancelled - Patient discharged Performed By: #### L 500.2500, L100.0100 #### [facility] [address] [place], [address] GAP Normal 5-[address] [facility] Comment on above: Result Comment: Canc elled via OM: Order cancelled - Patient discharged Performed By: #### L 500.2500, L100.0100 #### [facility] [address] [place], [address] GLU Normal 70-[address] [facility] Comment on above: Result Comment: Canc elled via OM: Order cancelled - Patient discharged Performed By: #### L 500.2500, L100.0100 #### [facility] [address] [place], [address] Potassium Normal 3.3-5.[address] [facility] Comment on above: Result Comment: Canc elled via OM: Order cancelled - Patient discharged Performed By: #### L 500.2500, L100.0100 #### [facility] [address] [place], [address] Basic Metabolic Profile (BMP) Normal 133-[address] [facility] Comment on above: Result Comment: Canc elled via OM: Order cancelled - Patient discharged Performed By: #### L 500.2500, L100.0100 #### [facility] [address] [place], [address] CBC W/Diff, Automatedon 08-0 -2024 Absolute Neut Normal 2.0-7.[address] [facility] Comment on above: Result Comment: Canc elled via OM: Order cancelled - Patient discharged Performed By: #### L 500.2500, L100.0100 #### [facility] [address] [place], [address] HCT Normal 37-[address] [facility] Comment on above: Result Comment: Canc elled via OM: Order cancelled - Patient discharged Performed By: #### L 500.2500, L100.0100 #### [facility] [address] [place], [address] HGB Normal 12.0-15.[address] [facility] Comment on above: Result Comment: Canc elled via OM: Order cancelled - Patient discharged Performed By: #### L 500.2500, L100.0100 #### [facility] [address] [place], [address] MCH Normal 27.0-32.[address] [facility] Comment on above: Result Comment: Canc elled via OM: Order cancelled - Patient discharged Performed By: #### L 500.2500, L100.0100 #### [facility] [address] [place], [address] MCHC Normal 32-[address] [facility] Comment on above: Result Comment: Canc elled via OM: Order cancelled - Patient discharged Performed By: #### L 500.2500, L100.0100 #### [facility] [address] [place], [address] MCV Normal 81-[address] [facility] Comment on above: Result Comment: Canc elled via OM: Order cancelled - Patient discharged Performed By: #### L 500.2500, L100.0100 #### [facility] [address] [place], [address] NEUT% Normal 47-[address] [facility] Comment on above: Result Comment: Canc elled via OM: Order cancelled - Patient discharged Performed By: #### L 500.2500, L100.0100 #### [facility] [address] [place], [address] PLT Normal 150-[address] [facility] Comment on above: Result Comment: Canc elled via OM: Order cancelled - Patient discharged Performed By: #### L 500.2500, L100.0100 #### [facility] [address] [place], [address] RBC Normal 4.2-5.[address] [facility] Comment on above: Result Comment: Canc elled via OM: Order cancelled - Patient discharged Performed By: #### L 500.2500, L100.0100 #### [facility] [address] [place], [address] RDW CV Normal 11.6-14.[address] [facility] Comment on above: Result Comment: Canc elled via OM: Order cancelled - Patient discharged Performed By: #### L 500.2500, L100.0100 #### [facility] [address] [place], [address] RDW SD Normal 35.1-43.[address] [facility] Comment on above: Result Comment: Canc elled via OM: Order cancelled - Patient discharged Performed By: #### L 500.2500, L100.0100 #### [facility] [address] [place], [address] WBC Normal 4.4-11.[address] [facility] Comment on above: Result Comment: Canc elled via OM: Order cancelled - Patient discharged Performed By: #### L 500.2500, L100.0100 #### [facility] [address] [place], [address] Basic Metabolic Profile (BMP )on 02-11-2025 BUN Normal 4-[address] [facility] Comment on above: Result Comment: Canc elled via OM: Order cancelled - Patient discharged Performed By: #### L 503.7505, L503.6005, L500.4050, L501.4021, L100.0100 #### [facility] [address] [place], [address] BUN/CRE Normal 10-[address] [facility] Comment on above: Result Comment: Canc elled via OM: Order cancelled - Patient discharged Performed By: #### L 503.7505, L503.6005, L500.4050, L501.4021, L100.0100 #### [facility] [address] [place], [address] Calcium Normal 7.6-11.[address] [facility] Comment on above: Result Comment: Canc elled via OM: Order cancelled - Patient discharged Performed By: #### L 503.7505, L503.6005, L500.4050, L501.4021, L100.0100 #### [facility] [address] [place], [address] CL Normal 98-[address] [facility] Comment on above: Result Comment: Canc elled via OM: Order cancelled - Patient discharged Performed By: #### L 503.7505, L503.6005, L500.4050, L501.4021, L100.0100 #### [facility] [address] [place], [address] CO2 Normal 21.0-32.[address] [facility] Comment on above: Result Comment: Canc elled via OM: Order cancelled - Patient discharged Performed By: #### L 503.7505, L503.6005, L500.4050, L501.4021, L100.0100 #### [facility] [address] [place], [address] CREAT,SERUM Normal 0.70-1.[address] [facility] Comment on above: Result Comment: Canc elled via OM: Order cancelled - Patient discharged Performed By: #### L 503.7505, L503.6005, L500.4050, L501.4021, L100.0100 #### [facility] [address] [place], [address] eGFR Normal >[address] [facility] Comment on above: Result Comment: Canc elled via OM: Order cancelled - Patient discharged Performed By: #### L 503.7505, L503.6005, L500.4050, L501.4021, L100.0100 #### [facility] [address] [place], [address] GAP Normal 5-[address] [facility] Comment on above: Result Comment: Canc elled via OM: Order cancelled - Patient discharged Performed By: #### L 503.7505, L503.6005, L500.4050, L501.4021, L100.0100 #### [facility] [address] [place], [address] GLU Normal 70-[address] [facility] Comment on above: Result Comment: Canc elled via OM: Order cancelled - Patient discharged Performed By: #### L 503.7505, L503.6005, L500.4050, L501.4021, L100.0100 #### [facility] [address] [place], [address] Potassium Normal 3.3-5.[address] [facility] Comment on above: Result Comment: Canc elled via OM: Order cancelled - Patient discharged Performed By: #### L 503.7505, L503.6005, L500.4050, L501.4021, L100.0100 #### [facility] [address] [place], [address] Basic Metabolic Profile (BMP) Normal 133-[address] [facility] Comment on above: Result Comment: Canc elled via OM: Order cancelled - Patient discharged Performed By: #### L 503.7505, L503.6005, L500.4050, L501.4021, L100.0100 #### [facility] [address] [place], [address] CBC W/Diff, Automatedon 08-0 -2024 Absolute Neut Normal 2.0-7.[address] [facility] Comment on above: Result Comment: Canc elled via OM: Order cancelled - Patient discharged Performed By: #### L 503.7505, L503.6005, L500.4050, L501.4021, L100.0100 #### [facility] [address] [place], [address] HCT Normal 37-[address] [facility] Comment on above: Result Comment: Canc elled via OM: Order cancelled - Patient discharged Performed By: #### L 503.7505, L503.6005, L500.4050, L501.4021, L100.0100 #### [facility] [address] [place], [address] HGB Normal 12.0-15.[address] [facility] Comment on above: Result Comment: Canc elled via OM: Order cancelled - Patient discharged Performed By: #### L 503.7505, L503.6005, L500.4050, L501.4021, L100.0100 #### [facility] [address] [place], [address] MCH Normal 27.0-32.[address] [facility] Comment on above: Result Comment: Canc elled via OM: Order cancelled - Patient discharged Performed By: #### L 503.7505, L503.6005, L500.4050, L501.4021, L100.0100 #### [facility] [address] [place], [address] MCHC Normal 32-[address] [facility] Comment on above: Result Comment: Canc elled via OM: Order cancelled - Patient discharged Performed By: #### L 503.7505, L503.6005, L500.4050, L501.4021, L100.0100 #### [facility] [address] [place], [address] MCV Normal 81-[address] [facility] Comment on above: Result Comment: Canc elled via OM: Order cancelled - Patient discharged Performed By: #### L 503.7505, L503.6005, L500.4050, L501.4021, L100.0100 #### [facility] [address] [place], [address] NEUT% Normal 47-[address] [facility] Comment on above: Result Comment: Canc elled via OM: Order cancelled - Patient discharged Performed By: #### L 503.7505, L503.6005, L500.4050, L501.4021, L100.0100 #### [facility] [address] [place], [address] PLT Normal 150-[address] [facility] Comment on above: Result Comment: Canc elled via OM: Order cancelled - Patient discharged Performed By: #### L 503.7505, L503.6005, L500.4050, L501.4021, L100.0100 #### [facility] [address] [place], [address] RBC Normal 4.2-5.[address] [facility] Comment on above: Result Comment: Canc elled via OM: Order cancelled - Patient discharged Performed By: #### L 503.7505, L503.6005, L500.4050, L501.4021, L100.0100 #### [facility] [address] [place], [address] RDW CV Normal 11.6-14.[address] [facility] Comment on above: Result Comment: Canc elled via OM: Order cancelled - Patient discharged Performed By: #### L 503.7505, L503.6005, L500.4050, L501.4021, L100.0100 #### [facility] [address] [place], [address] RDW SD Normal 35.1-43.[address] [facility] Comment on above: Result Comment: Canc elled via OM: Order cancelled - Patient discharged Performed By: #### L 503.7505, L503.6005, L500.4050, L501.4021, L100.0100 #### [facility] [address] [place], [address] WBC Normal 4.4-11.[address] [facility] Comment on above: Result Comment: Canc elled via OM: Order cancelled - Patient discharged Performed By: #### L 503.7505, L503.6005, L500.4050, L501.4021, L100.0100 #### [facility] [address] [place], [address] Absolute lymphocyte countOrd ered By: Joanne Vo on 02-10-2025 Lymphocytes Auto (Unsp spec) [#/Vol] 1.39 10*3/uL 0.83-4.[address] [facility] Absolute neutrophil countOrd ered By: Joanne Vo on 02-10-2025 Neutrophils (Bld) [#/Vol] 3.8 10*3/uL 2.0-7.[address] [facility] Anion gap in Serum or Plasma Ordered By: Joanne Vo on 02-10-2025 Anion gap [Moles/Vol] 13 mmol/L - [facility] Automated lymphocyte count a s percentage of total leukocytesOrdered By: Joanne Vo on 02-10-2025 Lymphocytes/100 WBC Auto (Unsp spec) 21.2 % [facility] BUN/creatinine ratioOrdered By: Joanne Vo on 02-10-2025 Urea nitrogen/Creatinine [Mass ratio] 13.0 mg/mg - [facility] Basic Metabolic Profile (BMP )on 02-10-2025 BUN/CRE 13.0 RATIO Normal 05-[address] [facility] Comment on above: Performed By: #### L 503.7505, L503.6005, L500.4050, L501.4021, L100.0100 #### [facility] [address] [place], [address] Calcium [Mass/Vol] 9.2 mg/dL Normal 7.6-11.0 [facility] Comment on above: Performed By: #### L 503.7505, L503.6005, L500.4050, L501.4021, L100.0100 #### [facility] [address] [place], [address] Chloride [Moles/Vol] 99 mmol/L Normal 98-108 [facility] Comment on above: Performed By: #### L 503.7505, L503.6005, L500.4050, L501.4021, L100.0100 #### [facility] [address] [place], [address] CO2 [Moles/Vol] 23.7 mmol/L Normal 21.0-32.[address] [facility] Comment on above: Performed By: #### L 503.7505, L503.6005, L500.4050, L501.4021, L100.0100 #### [facility] [address] [place], [address] Creatinine [Mass/Vol] 1.35 mg/dL High 0.70-1.20 [facility] Comment on above: Performed By: #### L 503.7505, L503.6005, L500.4050, L501.4021, L100.0100 #### [facility] [address] [place], [address] ECRCL 34.37 ml/min Low 50-[address] [facility] Comment on above: Performed By: #### L 503.7505, L503.6005, L500.4050, L501.4021, L100.0100 #### [facility] [address] [place], [address] GAP 13 Normal 5-[address] [facility] Comment on above: Performed By: #### L 503.7505, L503.6005, L500.4050, L501.4021, L100.0100 #### [facility] [address] [place], [address] GFR/1.73 sq M.predicted among non-blacks MDRD (S/P/Bld) [Vol rate/Area] 39 mL/min/{1.73_m2} Low >[address] [facility] Comment on above: Result Comment: mL/m in/1.73m2 CKD-EPI Creatinine Equation (2020) Performed By: #### L 503.7505, L503.6005, L500.4050, L501.4021, L100.0100 #### [facility] [address] [place], [address] Glucose [Mass/Vol] 107 mg/dL High 70-99 [facility] Comment on above: Performed By: #### L 503.7505, L503.6005, L500.4050, L501.4021, L100.0100 #### [facility] [address] [place], [address] Potassium [Moles/Vol] 3.4 mmol/L Normal 3.3-5.1 [facility] Comment on above: Performed By: #### L 503.7505, L503.6005, L500.4050, L501.4021, L100.0100 #### [facility] [address] [place], [address] Sodium [Moles/Vol] 136 mmol/L Normal 133-145 [facility] Comment on above: Performed By: #### L 503.7505, L503.6005, L500.4050, L501.4021, L100.0100 #### [facility] [address] [place], [address] Urea nitrogen [Mass/Vol] 18 mg/dL Normal 4-[address] [facility] Comment on above: Performed By: #### L 503.7505, L503.6005, L500.4050, L501.4021, L100.0100 #### [facility] [address] [place], [address] Basophil percentageOrdered B y: Joanne Vo on 02-10-2025 Basophils/100 WBC (Bld) 0.6 % 0-1 [facility] Bedside Glucoseon 02-10-2025 FINGERSTICK GLU 164 mg/dL High 74-[address] [facility] Comment on above: Result Comment: CRISTIAN GEMENT OF PATIENT CARE PER NURSING PROTOCOL Performed By: #### L 500.2500, L100.0100 #### [facility] [address] [place], [address] FINGERSTICK GLU 116 mg/dL High 74-[address] [facility] Comment on above: Result Comment: CRISTIAN GEMENT OF PATIENT CARE PER NURSING PROTOCOL Performed By: #### L 501.080 #### [facility] [address] [place], [address] CBC W/Diff, Automatedon 08-0 1-2024 Absolute Lymph 1.39 X10 3/uL Normal 0.83-4.[address] [facility] Comment on above: Performed By: #### L 503.7505, L503.6005, L500.4050, L501.4021, L100.0100 #### [facility] [address] [place], [address] Absolute Neut 3.8 X10 3/uL Normal 2.0-7.[address] [facility] Comment on above: Performed By: #### L 503.7505, L503.6005, L500.4050, L501.4021, L100.0100 #### [facility] [address] [place], [address] Basophils/100 WBC (Bld) 0.6 % Normal 0-1 [facility] Comment on above: Performed By: #### L 503.7505, L503.6005, L500.4050, L501.4021, L100.0100 #### [facility] [address] [place], [address] Eosinophils/100 WBC (Bld) 4.0 % Normal 0-[address] [facility] Comment on above: Performed By: #### L 503.7505, L503.6005, L500.4050, L501.4021, L100.0100 #### [facility] [address] [place], [address] Erythrocyte distribution width (RBC) [Ratio] 18.9 % High 11.6-14.[address] [facility] Comment on above: Performed By: #### L 503.7505, L503.6005, L500.4050, L501.4021, L100.0100 #### [facility] [address] [place], [address] Hematocrit (Bld) [Volume fraction] 32.1 % Low 37-[address] [facility] Comment on above: Performed By: #### L 503.7505, L503.6005, L500.4050, L501.4021, L100.0100 #### [facility] [address] [place], [address] Hemoglobin (Bld) [Mass/Vol] 9.5 g/dL Low 12.0-15.[address] [facility] Comment on above: Performed By: #### L 503.7505, L503.6005, L500.4050, L501.4021, L100.0100 #### [facility] [address] [place], [address] IG% 0.500 Normal 0.0-0.[address] [facility] Comment on above: Result Comment: IG% - Immature Granulocytes (promyelocytes, myelocytes and metamyelocytes) > 1% indicates that a LEFT SHIFT is Present. Performed By: #### L 503.7505, L503.6005, L500.4050, L501.4021, L100.0100 #### [facility] [address] [place], [address] Lymphocytes/100 WBC (Bld) 21.2 % Normal 19-[address] [facility] Comment on above: Performed By: #### L 503.7505, L503.6005, L500.4050, L501.4021, L100.0100 #### [facility] [address] [place], [address] MCH (RBC) [Entitic mass] 23.3 pg Low 27.0-32.[address] [facility] Comment on above: Performed By: #### L 503.7505, L503.6005, L500.4050, L501.4021, L100.0100 #### [facility] [address] [place], [address] MCHC (RBC) [Mass/Vol] 29.6 g/dL Low 32-36 [facility] Comment on above: Performed By: #### L 503.7505, L503.6005, L500.4050, L501.4021, L100.0100 #### [facility] [address] [place], [address] MCV (RBC) [Entitic vol] 78.9 fL Low 81-99 [facility] Comment on above: Performed By: #### L 503.7505, L503.6005, L500.4050, L501.4021, L100.0100 #### [facility] [address] [place], [address] Monocytes/100 WBC (Bld) 15.7 % High 0-10 [facility] Comment on above: Performed By: #### L 503.7505, L503.6005, L500.4050, L501.4021, L100.0100 #### [facility] [address] [place], [address] Neutrophils/100 WBC (Bld) 58.0 % Normal 47-[address] [facility] Comment on above: Performed By: #### L 503.7505, L503.6005, L500.4050, L501.4021, L100.0100 #### [facility] [address] [place], [address] Nucleated RBC (Bld) [#/Vol] 0 10*3/uL Normal 0-[address] [facility] Comment on above: Performed By: #### L 503.7505, L503.6005, L500.4050, L501.4021, L100.0100 #### [facility] [address] [place], [address] Platelet mean volume (Bld) [Entitic vol] 10.3 fL Normal 6.2-12.[address] [facility] Comment on above: Performed By: #### L 503.7505, L503.6005, L500.4050, L501.4021, L100.0100 #### [facility] [address] [place], [address] Platelets (Bld) [#/Vol] 347 10*3/uL Normal 150-[address] [facility] Comment on above: Performed By: #### L 503.7505, L503.6005, L500.4050, L501.4021, L100.0100 #### [facility] [address] [place], [address] RBC (Bld) [#/Vol] 4.07 10*6/uL Low 4.2-5.4 [facility] Comment on above: Performed By: #### L 503.7505, L503.6005, L500.4050, L501.4021, L100.0100 #### [facility] [address] [place], [address] RDW SD 52.7 fl High 35.1-43.[address] [facility] Comment on above: Performed By: #### L 503.7505, L503.6005, L500.4050, L501.4021, L100.0100 #### [facility] [address] [place], [address] WBC (Bld) [#/Vol] 6.6 10*3/uL Normal 4.4-11.0 [facility] Comment on above: Performed By: #### L 503.7505, L503.6005, L500.4050, L501.4021, L100.0100 #### [facility] [address] [place], [address] Kodi 02-10-2025 DICKN Telephone (FAMPWS) GUDELIA GUPTA ([id number]) 1940 F Date Time Provider Department 02/10/25 VICTOR M ROCHA During your visit today, we recorded the following information about you: Shanti Astorga RN 02/10/2025 10:51 AM Signed Yovana with [facility] calling and asking if PCP would be agreeable to following pt for Home Health Nursing and PT orders? Pt currently at [facility] for CHF Exac and will be discharged to home soon. Please call Yovana back with reply: [phone]. NIYA Macedo Mark D, MD 02/10/2025 1:48 PM Signed Yes, I would be agreeable to following pt for Home Health Nursing and PT order MD Bong Taylor Kathryn, MA 02/10/2025 2:55 PM Signed Yovana notified. Kandi Woody MA' Allergies As of Date: 02/10/2025 Noted Allergy Reaction POISON FANY 10/17/2005 SULFA (SULFONAMIDE ANTIBIOTICS) 10/17/2005 4 - Hives Date Reviewed: 02/06/2025 Reviewed by: Kandi Woody MA - Fully Assessed Reason for Visit: [facility] Call [Other] Prescriptions as of 02/10/2025 - ciprofloxacin HCl (CIPRO) 500 mg tablet Take 1 tablet by mouth two times a day for 7 days. - ferrous sulfate 325 mg (65 mg iron) tablet Take 1 tablet by mouth two times a day with meals. - ascorbic acid, vitamin C, (VITAMIN C) 500 mg tablet Take 1 tablet by mouth two times a day. - empagliflozin (JARDIANCE) 10 mg tablet Take [...] 1 capsule by mouth once daily. - oxyCODONE-acetaminop hen (PERCOCET) 5-325 mg tablet TAKE 1 TO [...] eyes twice daily. - blood sugar diagnostic ([email or web address] VERIO TEST STRIPS) test strip TEST BLOOD [...] knee pain. 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[place]* Essential hypertension, benign [I10] 08/13/2011 S/P angioplasty with stent 11/13/2012 Backache, unspecified [M54.9] 11/08/2013 GERD (gastroesophageal reflux disease) [K21.9] 10/03/2014 Paroxysmal atrial fibrillation (HCC) [I48.0] 09/18/2015 Pacemaker [Z95.0] 09/18/2015 Iron deficiency anemia [D50.9] 08/19/2016 Malabsorption of iron [K90.9] 08/19/2016 12/01/2016 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 Normal [facility] Carbon dioxide, total [Moles /volume] in Central venous bloodOrdered By: Joanne Vo on 02-10-2025 CO2 [Moles/Vol] 23.7 mmol/L 21.0-32.[address] [facility] Chloride assayOrdered By: Fifi Vo on 02-10-2025 Chloride [Moles/Vol] 99 mmol/L 98-108 [facility] Discharge Instructionon 08-0 Discharge Instruction [facility] Medical Records Department [address] [place] [address] Instructions for Home/Discharge Instructions 02/10/25 1823 MR#: [id number] Acct: [id number] Name: GUDELIA GUPTA Rep #: [id number] : 1940 84 From: Juice Elizabeth DO PCP: Dr. Victor M Rocha MD Status:ADM IN Discharge Instructions DC O2, CPAP, BIPAP needs Home O2 Discharge instructions: No Dressing / Incision Discharge Activity: No Restrictions Follow Up Care Test Results: Test results from this visit will be discussed in further detail at your follow-up appointment, if applicable. Discharge Plan Admission Admit Date/Time: 02/08/25 20:40 Primary Reason for Your Visit: shortness of breath Attending Provider: Joanen Vo Primary Care Provider: Victor M Rocha Consulting Providers: Deandre Xiao Discharge Orders/Prescriptions Prescriptions: Continued glimepiride 4 mg tablet 2 mg [...] 100 mcg tablet 100 mcg PO DAILY furosemide [Lasix] 40 mg tablet 40 mg PO DAILY Qty: 60 0RF oxycodone-acetaminop hen 5-325 mg tablet 1 tab PO TID PRN PRN (Reason: pain) amlodipine 10 mg tablet 10 mg PO DAILY ferrous sulfate [FeroSul] 325 mg (65 mg iron) tablet 65 mg PO DAILY ciprofloxacin HCl 500 mg tablet 500 mg PO BID Xarelto 20 mg tablet 20 mg PO QPM Qty: 90 3RF Rx Instructions: must administer with evening meal losartan 100 mg tablet 100 mg PO DAILY Qty: 90 3RF potassium chloride 20 mEq tablet,ER particles/crystals 40 meq PO QDAY Qty: 90 3RF metoprolol succinate 50 mg tablet extended release 24 hr 50 mg PO DAILY Qty: 90 3RF simvastatin 20 mg tablet 20 mg PO QHS Qty: 90 3RF Referrals / Follow Up: Victor M Rocha MD [Primary Care Provider] - Disposition Disposition (needs filled in before D/C Order can be placed): Home, Self Care 02/10/251825 Juice Davisdandy [place] CC: Dr. Deandre Xiao DO; Dr. Victor M Rocha MD Signed Normal [facility] Eosinophil percentageOrdered By: Joanne Vo on 02-10-2025 Eosinophils/100 WBC (Bld) 4.0 % 0-[address] [facility] Erythrocyte distribution wid th ratioOrdered By: Joanne Vo on 02-10-2025 Erythrocyte distribution width (RBC) [Ratio] 18.9 % High 11.6-14.[address] [facility] Erythrocyte distribution wid th standard deviationOrdered By: Joanne Vo on 02-10-2025 Erythrocyte distribution width (RBC) [Ratio] 52.7 fl High 35.1-43.[address] [facility] Glomerular filtration rate ( GFR) estimation/1.73 sq m using serum, plasma, or whole bOrdered By: Joanne Vo on 02-10-2025 GFR/1.73 sq M.predicted among non-blacks MDRD (S/P/Bld) [Vol rate/Area] 39 mL/min/{1.73_m2} Low >[address] [facility] Comment on above: mL/min/1.73m2 CKD-EP I Creatinine Equation (2020) [facility] deOrdered By: Joanne Vo on 02-10-2025 Glucose [Mass/Vol] 164 mg/dL High 74-106 [facility] Comment on above: MANAGEMENT OF PATIEN T CARE PER NURSING PROTOCOL Hematocrit Auto (Bld) [Volum e fraction]Ordered By: Joanne Vo on 02-10-2025 Hematocrit (Bld) [Volume fraction] 32.1 % Low 37-[address] [facility] Hemoglobin measurementOrdere d By: Joanne Vo on 02-10-2025 Hemoglobin (Bld) [Mass/Vol] 9.5 g/dL Low 12.0-15.[address] [facility] Immature granulocytes/100 WB C Auto (Bld)Ordered By: Joanne Vo on 02-10-2025 Immature granulocytes/100 WBC (Bld) 0.500 % 0.0-0.[address] [facility] Comment on above: IG% - Immature Granu locytes (promyelocytes, myelocytes and metamyelocytes) > 1% indicates that a LEFT SHIFT is Present. MCV (mean corpuscular volume ) determinationOrdered By: Joanne Vo on 02-10-2025 MCV (RBC) [Entitic vol] 78.9 fL Low 81-99 [facility] MR/CON.PCM.GIon 02-10-2025 MR/CON.PCM.GI [facility] Medical Records Department [address] [place] [address] Consultation - 02/10/25 1819 MR#: [id number] Acct: [id number] Name: GUDELIA GUPTA Rep #: [id number] : 1940 84 From: Brock Leroy DO PCP: Dr. Victor M Rocha MD Status:ADM IN Location: [place] [address] HPI Consult Data Date of Consult: 02/10/25 HPI Narrative Reason for Consultation: Abnormal imaging HPI Narrative: GUDELIA GUPTA, is 84-year-old female history of A-fib, sick sinus syndrome status post pacemaker, on chronic anticoagulation in the form of Xarelto, acute hypoxemic respiratory failure, heart failure, CAD status post stent, pulmonary artery hypertension. The patient states she currently does not wear oxygen at home despite her reported history of acute hypoxemic respiratory failure. States she was prescribed oxygen sometime ago however she did not use it so she returned it. Patient notes several months of worsening dyspnea on exertion. She was diagnosed with CHF exacerbation and acute on chronic heart failure. I was asked to see her due to abnormal swallowing test. She underwent speech and swallow evaluation and during her video swallow study it was noted to have narrowing at the base that esophagus. [facility] Medical History Coronary artery disease Iron deficiency anemia History of non-ST elevation myocardial infarction (NSTEMI) (2013) Longstanding persistent atrial fibrillation Essential (primary) hypertension Anxiety Hypothyroidism Hyperlipidemia Secondary pulmonary arterial hypertension Atherosclerosis of coronary artery of [place] heart without angina pectoris Paroxysmal atrial fibrillation Paroxysmal atrial flutter Sick sinus syndrome Home Medications ???Medication ???Instructions ???Recorded ???Last Taken ???Type buspirone 15 mg tablet 15 mg PO BID ANXIETY 06/02/13 Unkn own History omeprazole 40 mg capsule,delayed 40 mg PO DAILY ACID REFLUX 3 04/11/24 History release nitroglycerin 0.4 mg sublingual 0.4 mg sublingual Q5M PRN CHEST Unknown History tablet PAIN glimepiride 4 mg tablet 2 mg PO DAILY DIABETES 01/24/22 History amitriptyline 50 mg tablet 50 mg PO QHS DEPRESSION 02/17/23 U nknown History empagliflozin 10 mg tablet 10 mg PO DAILY DIABETES 02/17/23 U nknown History (Jardiance) ketotifen fumarate 0.025 % (0.035 1 drp ophthalmic (eye) BID PRN Unknown History %) eye drops ([place]) ITCHING/ALLERGIES levothyroxine 100 mcg tablet 100 mcg PO DAILY THYROID 12/14/23 Unknown History (Synthroid) furosemide 40 mg tablet (Lasix) 40 mg PO DAILY water pill #60 tabs 12/17/23 Unknown Rx rivaroxaban 20 mg tablet (Xarelto) 20 mg PO QPM #90 tabs 10/06/24 U nknown Rx losartan 100 mg tablet 100 mg PO DAILY blood pressure #90 11/18/24 Unknown Rx tabs potassium chloride 20 mEq 40 meq (2 x 20 mEq) PO QDAY #90 Unknown Rx tablet,extended release(part/cryst) tabs metoprolol succinate 50 mg 50 mg PO DAILY heart/BP #90 tabs 0 11/23/24 Unknown Rx tablet,extended release 24 hr simvastatin 20 mg tablet 20 mg PO QHS CHOLESTEROL #90 tabs 12/22/24 Unknown Rx amlodipine 10 mg tablet 10 mg PO DAILY 02/08/25 Unknown Hi story ciprofloxacin HCl 500 mg tablet 500 mg PO BID 02/08/25 Unknown His tory ferrous sulfate 325 mg (65 mg 65 mg PO DAILY 02/08/25 Unknown Hi story iron) tablet (FeroSul) oxycodone-acetaminop hen 5 mg-325 1 tab PO TID PRN PRN pain 02/08/25 Unknown History mg tablet Allergy/AdvReac Type Severity Reaction Status Date / Time poison fany extract (Poison Allergy Rash Verified 02/08/25 16:56 Fany Extract) Sulfa (Sulfonamide Allergy Hives Verified 02/08/25 16:56 Antibiotics) Family History Mother Cancer Father Cancer Brother CAD (coronary artery disease) Sister CAD (coronary artery disease) Surgical History S/P kyphoplasty History of tubal ligation History of appendectomy History of hysterectomy History of left heart catheterization (10/09/13) History of coronary artery stent placement (09/2010) Hx of atrioventricular node ablation (03/31/16) Presence of cardiac pacemaker (04/26/15) Social History household members: spouse Smoking Status: Former smoker how long ago did patient quit smokin's alcohol intake: never substance use type: does not use caffeine: Yes Type: coffee Number of servings: 3 ROS Constitutional Constitutional: Denies fatigue, fever(s), poor appetite, weight gain or weight loss Gastrointestinal Gastrointestinal: Denies belching, bloating, change in bowel habits, change in (more content not included)... Normal [facility] Mean corpuscular hemoglobin (MCH) determinationOrdered By: Joanne Vo on 02-10-2025 MCH (RBC) [Entitic mass] 23.3 pg Low 27.0-32.[address] [facility] Mean corpuscular hemoglobin concentration (MCHC) determinationOrdered By: Joanne Vo on 02-10-2025 MCHC (RBC) [Mass/Vol] 29.6 g/dL Low 32-36 [facility] Mean platelet volume determi nationOrdered By: Joanne Vo on 02-10-2025 Platelet mean volume (Bld) [Entitic vol] 10.3 fL 6.2-12.[address] [facility] Monocyte percentageOrdered B y: Joanne Vo on 02-10-2025 Monocytes/100 WBC (Bld) 15.7 % High 0-10 [facility] Neutrophil percentageOrdered By: Joanne Vo on 02-10-2025 Neutrophils/100 WBC (Bld) 58.0 % 47-[address] [facility] Nucleated red blood cell per centageOrdered By: Joanne Vo on 02-10-2025 Nucleated RBC/100 WBC (Bld) [Ratio] 0 % 0-[address] [facility] Phosphoruson 02-10-2025 Phosphate [Mass/Vol] 3.4 mg/dL Normal 2.7-4.5 [facility] Comment on above: Performed By: #### L 503.7505, L503.6005, L500.4050, L501.4021, L100.0100 #### [facility] [address] [place], [address] Platelet countOrdered By: Fifi oV on 02-10-2025 Platelets (Bld) [#/Vol] 347 10*3/uL 150-[address] [facility] Potassium measurement (mass/ volume)Ordered By: Joanne Vo on 02-10-2025 Potassium (Unsp spec) [Mass/Vol] 3.4 mmol/L 3.3-5.[address] [facility] RBC Auto (Bld) [#/Vol]Ordere d By: Joanne Vo on 02-10-2025 RBC (Bld) [#/Vol] 4.07 10*6/uL Low 4.2-5.4 [facility] Serum creatinine measurement (mass/volume)Ordered By: Joanne Vo on 02-10-2025 Creatinine [Mass/Vol] 1.35 mg/dL High 0.70-1.20 [facility] Serum glucose measurement (m ass/volume)Ordered By: Joanne Vo on 02-10-2025 Glucose [Mass/Vol] 107 mg/dL High 70-99 [facility] Serum or plasma calcium fernando urement (mass/volume)Ordered By: Joanne Vo on 02-10-2025 Calcium [Mass/Vol] 9.2 mg/dL 7.6-11.0 [facility] Serum or plasma urea nitroge n measurement (mass/volume)Ordered By: Joanne Vo on 02-10-2025 Urea nitrogen [Mass/Vol] 18 mg/dL 4-[address] [facility] Sodium levelOrdered By: Joanne Vo on 02-10-2025 Sodium [Moles/Vol] 136 mmol/L 133-145 [facility] White blood cell (WBC) count Ordered By: Joanneroxy Vo on 02-10-2025 WBC (Bld) [#/Vol] 6.6 10*3/uL 4.4-11.0 [facility] Bedside Glucoseon 02-09-2025 FINGERSTICK GLU 164 mg/dL High 74-[address] [facility] Comment on above: Result Comment: CRISTIAN GEMENT OF PATIENT CARE PER NURSING PROTOCOL Performed By: #### L 503.7505, L503.6005, L500.4050, L501.4021, L100.0100 #### [facility] [address] [place], [address] FINGERSTICK GLU 108 mg/dL High 74-[address] [facility] Comment on above: Result Comment: CRISTIAN GEMENT OF PATIENT CARE PER NURSING PROTOCOL Performed By: #### L 503.7505, L503.6005, L500.4050, L501.4021, L100.0100 #### [facility] [address] [place], [address] FINGERSTICK GLU 116 mg/dL High 74-[address] [facility] Comment on above: Result Comment: CRISTIAN GEMENT OF PATIENT CARE PER NURSING PROTOCOL Performed By: #### L 503.7505, L503.6005, L500.4050, L501.4021, L100.0100 #### [facility] [address] [place], [address] FINGERSTICK GLU 88 mg/dL Normal 74-[address] [facility] Comment on above: Result Comment: CRISTIAN GEMENT OF PATIENT CARE PER NURSING PROTOCOL Performed By: #### L 501.080 #### [facility] [address] [place], [address] FINGERSTICK GLU 129 mg/dL High 74-[address] [facility] Comment on above: Result Comment: CRISTIAN GEMENT OF PATIENT CARE PER NURSING PROTOCOL Performed By: #### L 501.080 #### [facility] [address] [place], [address] Bilirubin, totalOrdered By: Deandre Mtz on 02-09-2025 Bilirubin [Mass/Vol] 0.52 mg/dL 0.00-1.30 [facility] CBC W/Diff, Automatedon 01-12 Absolute Lymph 1.20 X10 3/uL Normal 0.83-4.[address] [facility] Comment on above: Performed By: #### L 100.0100 #### [facility] [address] [place], [address] Absolute Neut 5.5 X10 3/uL Normal 2.0-7.[address] [facility] Comment on above: Performed By: #### L 100.0100 #### [facility] [address] [place], [address] Basophils/100 WBC (Bld) 0.6 % Normal 0-1 [facility] Comment on above: Performed By: #### L 100.0100 #### [facility] [address] [place], [address] Eosinophils/100 WBC (Bld) 2.3 % Normal 0-[address] [facility] Comment on above: Performed By: #### L 100.0100 #### [facility] [address] [place], [address] Erythrocyte distribution width (RBC) [Ratio] 18.6 % High 11.6-14.[address] [facility] Comment on above: Performed By: #### L 100.0100 #### [facility] [address] [place], [address] Hematocrit (Bld) [Volume fraction] 28.7 % Low 37-[address] [facility] Comment on above: Performed By: #### L 100.0100 #### [facility] [address] [place], [address] Hemoglobin (Bld) [Mass/Vol] 8.6 g/dL Low 12.0-15.[address] [facility] Comment on above: Performed By: #### L 100.0100 #### [facility] [address] [place], [address] IG% 0.400 Normal 0.0-0.[address] [facility] Comment on above: Result Comment: IG% - Immature Granulocytes (promyelocytes, myelocytes and metamyelocytes) > 1% indicates that a LEFT SHIFT is Present. Performed By: #### L 100.0100 #### [facility] [address] [place], [address] Lymphocytes/100 WBC (Bld) 15.1 % Low 19-[address] [facility] Comment on above: Performed By: #### L 100.0100 #### [facility] [address] [place], [address] MCH (RBC) [Entitic mass] 23.2 pg Low 27.0-32.[address] [facility] Comment on above: Performed By: #### L 100.0100 #### [facility] [address] [place], [address] MCHC (RBC) [Mass/Vol] 30.0 g/dL Low 32-36 [facility] Comment on above: Performed By: #### L 100.0100 #### [facility] [address] [place], [address] MCV (RBC) [Entitic vol] 77.6 fL Low 81-99 [facility] Comment on above: Performed By: #### L 100.0100 #### [facility] [address] [place], [address] Monocytes/100 WBC (Bld) 12.7 % High 0-10 [facility] Comment on above: Performed By: #### L 100.0100 #### [facility] [address] [place], [address] Neutrophils/100 WBC (Bld) 68.9 % Normal 47-[address] [facility] Comment on above: Performed By: #### L 100.0100 #### [facility] [address] [place], [address] Nucleated RBC (Bld) [#/Vol] 0.3 10*3/uL Normal 0-[address] [facility] Comment on above: Performed By: #### L 100.0100 #### [facility] [address] [place], [address] Platelet mean volume (Bld) [Entitic vol] 9.5 fL Normal 6.2-12.[address] [facility] Comment on above: Performed By: #### L 100.0100 #### [facility] [address] [place], [address] Platelets (Bld) [#/Vol] 322 10*3/uL Normal 150-[address] [facility] Comment on above: Performed By: #### L 100.0100 #### [facility] [address] [place], [address] RBC (Bld) [#/Vol] 3.70 10*6/uL Low 4.2-5.4 [facility] Comment on above: Performed By: #### L 100.0100 #### [facility] [address] [place], [address] RDW SD 52.0 fl High 35.1-43.[address] [facility] Comment on above: Performed By: #### L 100.0100 #### [facility] [address] [place], [address] WBC (Bld) [#/Vol] 8.0 10*3/uL Normal 4.4-11.0 [facility] Comment on above: Performed By: #### L 100.0100 #### [facility] [address] [place], [address] Calculated very low density lipoprotein (VLDL) cholesterol measurementOrdered By: Deandre Mtz on 02-09-2025 Calculated very low density lipoprotein (VLDL) cholesterol measurement 15 mg/dL 5-[address] [facility] Comprehensive Metabolic Prof ilon 02-09-2025 Albumin [Mass/Vol] 3.6 g/dL Normal 3.4-4.8 [facility] Comment on above: Performed By: #### L 503.7505, L503.6005, L500.4050, L501.4021, L100.0100 #### [facility] [address] [place], [address] Albumin/Globulin [Mass ratio] 0.8 {ratio} Low 0.9-2.[address] [facility] Comment on above: Performed By: #### L 503.7505, L503.6005, L500.4050, L501.4021, L100.0100 #### [facility] [address] [place], [address] ALK PHOS 131 U/L High 35-[address] [facility] Comment on above: Performed By: #### L 503.7505, L503.6005, L500.4050, L501.4021, L100.0100 #### [facility] [address] [place], [address] ALT [Catalytic activity/Vol] 11 U/L Normal <=[address] [facility] Comment on above: Performed By: #### L 503.7505, L503.6005, L500.4050, L501.4021, L100.0100 #### [facility] [address] [place], [address] AST [Catalytic activity/Vol] 21 U/L Normal <=[address] [facility] Comment on above: Performed By: #### L 503.7505, L503.6005, L500.4050, L501.4021, L100.0100 #### [facility] [address] [place], [address] Bilirubin [Mass/Vol] 0.52 mg/dL Normal 0.00-1.30 [facility] Comment on above: Performed By: #### L 503.7505, L503.6005, L500.4050, L501.4021, L100.0100 #### [facility] [address] [place], [address] BUN/CRE 14.4 RATIO Normal 10-[address] [facility] Comment on above: Performed By: #### L 503.7505, L503.6005, L500.4050, L501.4021, L100.0100 #### [facility] [address] [place], [address] Calcium [Mass/Vol] 9.2 mg/dL Normal 7.6-11.0 [facility] Comment on above: Performed By: #### L 503.7505, L503.6005, L500.4050, L501.4021, L100.0100 #### [facility] [address] [place], [address] Chloride [Moles/Vol] 100 mmol/L Normal 98-108 [facility] Comment on above: Performed By: #### L 503.7505, L503.6005, L500.4050, L501.4021, L100.0100 #### [facility] [address] [place], [address] CO2 [Moles/Vol] 23.2 mmol/L Normal 21.0-32.[address] [facility] Comment on above: Performed By: #### L 503.7505, L503.6005, L500.4050, L501.4021, L100.0100 #### [facility] [address] [place], [address] Creatinine [Mass/Vol] 1.29 mg/dL High 0.70-1.20 [facility] Comment on above: Performed By: #### L 503.7505, L503.6005, L500.4050, L501.4021, L100.0100 #### [facility] [address] [place], [address] ECRCL 36.61 ml/min Low 50-[address] [facility] Comment on above: Performed By: #### L 503.7505, L503.6005, L500.4050, L501.4021, L100.0100 #### [facility] [address] [place], [address] GAP 14 Normal 5-[address] [facility] Comment on above: Performed By: #### L 503.7505, L503.6005, L500.4050, L501.4021, L100.0100 #### [facility] [address] [place], [address] GFR/1.73 sq M.predicted among non-blacks MDRD (S/P/Bld) [Vol rate/Area] 41 mL/min/{1.73_m2} Low >[address] [facility] Comment on above: Result Comment: mL/m in/1.73m2 CKD-EPI Creatinine Equation (2020) Performed By: #### L 503.7505, L503.6005, L500.4050, L501.4021, L100.0100 #### [facility] [address] [place], [address] Globulin (S) [Mass/Vol] 4.7 g/dL High 2.2-4.2 [facility] Comment on above: Performed By: #### L 503.7505, L503.6005, L500.4050, L501.4021, L100.0100 #### [facility] [address] [place], [address] Glucose [Mass/Vol] 81 mg/dL Normal 70-99 [facility] Comment on above: Performed By: #### L 503.7505, L503.6005, L500.4050, L501.4021, L100.0100 #### [facility] [address] [place], [address] Potassium [Moles/Vol] 3.3 mmol/L Normal 3.3-5.1 [facility] Comment on above: Performed By: #### L 503.7505, L503.6005, L500.4050, L501.4021, L100.0100 #### [facility] [address] [place], [address] Sodium [Moles/Vol] 137 mmol/L Normal 133-145 [facility] Comment on above: Performed By: #### L 503.7505, L503.6005, L500.4050, L501.4021, L100.0100 #### [facility] [address] [place], [address] T PROT 8.3 g/dL Normal 5.9-8.[address] [facility] Comment on above: Performed By: #### L 503.7505, L503.6005, L500.4050, L501.4021, L100.0100 #### [facility] [address] [place], [address] Urea nitrogen [Mass/Vol] 19 mg/dL Normal 4-[address] [facility] Comment on above: Performed By: #### L 503.7505, L503.6005, L500.4050, L501.4021, L100.0100 #### [facility] [address] [place], [address] Electrocardiogram reportOrde red By: Vinny Root on 02-09-2025 EKG study [facility] [address] [place] [address] 12 Lead EKG 02/08/25 1749 MR#: [id number] Acct: [id number] Name: GUDELIA GUPTA Rep #:[id number] : 1940 84 From: Vinny Root MD Attending Dr: Dr. Joanne Vo MD Status: ADM IN Ordering Dr: Bernardo Judd DO Date: 0 02/08/25 Location: [facility] Sex: F C Admitted: 02/08/25 Test Reason : SOB Blood Pressure : */* mmHG Vent. Rate : 81 BPM Atrial Rate : 75 BPM P-R Int : * ms QRS Dur : 174 ms QT Int : 476 ms P-R-T Axes : * -82 98 degrees QTcB Int : 552 ms Ventricular-paced rhythm Abnormal ECG Confirmed by IVETT MORRISON, VINNY ([id number]), mapping editor MOISES LEW ([id number]) on 58:41:43 AM Referred By: Confirmed By: VINNY ROOT MD 02/09/25 0841 Date _ Vinny Root MD CC: Dr. Victor M Rocha MD; Dr. Joanne Vo MD; Dr. Bernardo Judd DO ~ Signed [facility] Work Phone: LDL calc ser/plasOrdered By: Deandre Mtz on 02-09-2025 Cholesterol in LDL [Mass/Vol] 47 mg/dL [facility] Comment on above: Oodfcbqxgv=661-500 m g/dL & Higher Bsyi=377 mg/dL or greaterFriedwald Equation for LDL-C Laboratory - Chemistry and C hemistry - challengeOrdered By: Deandre Mtz on 02-09-2025 AST [Catalytic activity/Vol] 21 U/L <[address] [facility] Lipid Profileon 02-09-2025 CHOL:HDL 2.[address] [facility] Comment on above: Performed By: #### L 503.8948, L503.6005, L500.4050, L501.4021, L100.0100 #### [facility] [address] [place], [address] Cholesterol [Mass/Vol] 95 mg/dL Normal <=200 [facility] Comment on above: Result Comment: Chol esterol level, Desirable <200 mg/dL Borderline high cholesterol 200-239 mg/dL High cholesterol >=240 mg/dL Recommendations of the NCEP Adult Treatment Panel for the following risk-cutoff thresholds for the [place] population. Performed By: #### L 503.7505, L503.6005, L500.4050, L501.4021, L100.0100 #### [facility] [address] [place], [address] Cholesterol in HDL [Mass/Vol] 33 mg/dL Low [facility] Comment on above: Result Comment: Nerissa onal Cholesterol Education Program (NCEP) guidelines: <40 mg/dL: Low HDL-cholesterol (major risk factor for CHD) >= 60 mg/dL: High HDL-cholesterol (negative risk factor for CHD) HDL-cholesterol is affected by a number of factors, e.g. smoking, exercise, hormones, sex and age. Performed By: #### L 503.7505, L503.6005, L500.4050, L501.4021, L100.0100 #### [facility] [address] [place], [address] Cholesterol in LDL [Mass/Vol] 47 mg/dL Normal [facility] Comment on above: Result Comment: Bord fibryh=718-615 mg/dL Higher Ojup=534 mg/dL or greater Friedwald Equation for LDL-C Performed By: #### L 503.7505, L503.6005, L500.4050, L501.4021, L100.0100 #### [facility] [address] [place], [address] Cholesterol in VLDL [Mass/Vol] 15 mg/dL Normal 5-[address] [facility] Comment on above: Performed By: #### L 503.7505, L503.6005, L500.4050, L501.4021, L100.0100 #### [facility] [address] [place], [address] Triglyceride [Mass/Vol] 74 mg/dL Normal [facility] Comment on above: Result Comment: The drugs N-Acetylcysteine and Metamizole may falsely depress this assay. Normal range: <150 mg/dL Borderline High: 150-199 mg/dL High: 200-499 mg/dL Very High: >500 mg/dL Performed By: #### L 503.7505, L503.6005, L500.4050, L501.4021, L100.0100 #### [facility] [address] [place], [place], [address] Phosphoruson 02-09-2025 Phosphate [Mass/Vol] 3.3 mg/dL Normal 2.7-4.5 [facility] Comment on above: Performed By: #### L 503.7505, L503.6005, L500.4050, L501.4021, L100.0100 #### [facility] [address] [place], [place], [address] Screening total cholesterol/ high density lipoprotein (HDL) cholesterol ratioOrdered By: Deandre Mtz on 02-09-2025 Cholesterol.total/Choles terol in HDL [Mass ratio] 2.89 {ratio} [facility] Serum globulin measurementOr dered By: Deandre Mtz on 02-09-2025 Globulin (S) [Mass/Vol] 4.7 g/dL High 2.2-4.2 [facility] Serum or plasma alanine figueroa otransferase (ALT) measurementOrdered By: Deandre Mtz on 02-09-2025 ALT [Catalytic activity/Vol] 11 U/L <[address] [facility] Serum or plasma albumin fernando urement (mass/volume)Ordered By: Deandre Mtz on 02-09-2025 Albumin [Mass/Vol] 3.6 g/dL 3.4-4.8 [facility] Serum or plasma albumin/glob ulin mass ratioOrdered By: Deandre Mtz on 02-09-2025 Albumin/Globulin [Mass ratio] 0.8 {ratio} Low 0.9-2.[address] [facility] Serum or plasma alkaline janette sphatase measurementOrdered By: Deandre Mtz on 02-09-2025 ALP [Catalytic activity/Vol] 131 U/L High 35-[address] [facility] Serum or plasma cholesterol in HDL measurement (mass/volume)Ordered By: Deandre Mtz on 02-09-2025 Cholesterol in HDL [Mass/Vol] 33 mg/dL Low >[address] [facility] Comment on above: National Cholesterol Education Program (NCEP) guidelines:<40 mg/dL: Low HDL-cholesterol (major risk factor for CHD)>= 60 mg/dL: High HDL-cholesterol (negative risk factor for CHD)HDL-cholesterol is affected by a number of factors, e.g. smoking, exercise, hormones, sex and age. Serum or plasma cholesterol measurement (mass/volume)Ordered By: Deandre Mtz on 02-09-2025 Cholesterol [Mass/Vol] 95 mg/dL <201 [facility] Comment on above: Cholesterol level, D esirable <200 mg/dLBorderline high cholesterol 200-239 mg/dLHigh cholesterol >=240 mg/dLRecommendations of the NCEP Adult Treatment Panel for the following risk-cutoff thresholds for the [place] population. Total proteinOrdered By: Goran Mtz on 02-09-2025 Protein [Mass/Vol] 8.3 g/dL 5.9-8.4 [facility] Triglycerides measurementOrd ered By: Deandre Mtz on 02-09-2025 Triglyceride [Mass/Vol] 74 mg/dL <199 [facility] Comment on above: The drugs N-Acetylcy steine and Metamizole may falsely depress this assay. Normal range: <150 mg/dLBorderline High: 150-199 mg/dLHigh: 200-499 mg/dLVery High: >500 mg/dL 12 Lead EKGon 02-08-2025 12 Lead EKG [facility] Cardiovascular Services [address] [place] [address] 12 Lead EKG 02/08/25 1749 MR#: [id number] Acct: [id number] Name: GUDELIA GUPTA #: [id number] : 1940 84 From: Vinny Root MD Attending Dr: Dr. Joanne Vo MD Status: AD M IN Ordering Dr: Bernardo Judd DO Date: 02/08/25 Location: [facility] Sex: F C Admitted: 02/08/25 Test Reason : SOB Blood Pressure : */* mmHG Vent. Rate : 81 BPM Atrial Rate : 75 BPM P-R Int : * ms QRS Dur : 174 ms QT Int : 476 ms P-R-T Axes : * -82 98 degrees QTcB Int : 552 ms Ventricular-paced rhythm Abnormal ECG Confirmed by VINNY ROOT MD ([id number]), mapping editor MOISES LEW ([id number]) on 02/09/2025 8:41:43 AM Referred By: Confirmed By: VINNY ROOT MD 02/09/25 0841 Date Vinny Root MD CC: Dr. Victor M Rocha MD; Dr. Joanne Vo MD; Dr. Bernardo Judd DO Signed Normal [facility] Absolute lymphocyte countOrd ered By: Bernardo Judd on 02-08-2025 Lymphocytes Auto (Unsp spec) [#/Vol] 1.24 10*3/uL 0.83-4.[address] [facility] Absolute neutrophil countOrd ered By: Bernardo Judd on 02-08-2025 Neutrophils (Bld) [#/Vol] 4.3 10*3/uL 2.0-7.[address] [facility] Anion gap in Serum or Plasma Ordered By: Bernardo Judd on 02-08-2025 Anion gap [Moles/Vol] 15 mmol/L 5-15 [facility] Automated lymphocyte count a s percentage of total leukocytesOrdered By: Bernardo Judd on 02-08-2025 Lymphocytes/100 WBC Auto (Unsp spec) 18.5 % Low 19-[address] [facility] BUN/creatinine ratioOrdered By: Bernardo Judd on 02-08-2025 Urea nitrogen/Creatinine [Mass ratio] 14.4 mg/mg 10-[address] [facility] Basophil percentageOrdered B y: Bernardo Judd on 02-08-2025 Basophils/100 WBC (Bld) 0.6 % 0-1 [facility] Bilirubin, totalOrdered By: Bernardo Judd on 02-08-2025 Bilirubin [Mass/Vol] 0.56 mg/dL 0.00-1.30 [facility] CBC W/Diff, Automatedon 01-12 0-2024 Absolute Lymph 1.24 X10 3/uL Normal 0.83-4.[address] [facility] Comment on above: Performed By: #### L 503.7505, L503.6005, L500.4050, L501.4021, L100.0100 #### [facility] [address] [place], [address] Absolute Neut 4.3 X10 3/uL Normal 2.0-7.[address] [facility] Comment on above: Performed By: #### L 503.7505, L503.6005, L500.4050, L501.4021, L100.0100 #### [facility] [address] [place], [address] Basophils/100 WBC (Bld) 0.6 % Normal 0-1 [facility] Comment on above: Performed By: #### L 503.7505, L503.6005, L500.4050, L501.4021, L100.0100 #### [facility] [address] [place], [address] Eosinophils/100 WBC (Bld) 2.8 % Normal 0-[address] [facility] Comment on above: Performed By: #### L 503.7505, L503.6005, L500.4050, L501.4021, L100.0100 #### [facility] [address] [place], [address] Erythrocyte distribution width (RBC) [Ratio] 18.7 % High 11.6-14.[address] [facility] Comment on above: Performed By: #### L 503.7505, L503.6005, L500.4050, L501.4021, L100.0100 #### [facility] [address] [place], [address] Hematocrit (Bld) [Volume fraction] 30.0 % Low 37-[address] [facility] Comment on above: Performed By: #### L 503.7505, L503.6005, L500.4050, L501.4021, L100.0100 #### [facility] [address] [place], [address] Hemoglobin (Bld) [Mass/Vol] 8.8 g/dL Low 12.0-15.[address] [facility] Comment on above: Performed By: #### L 503.7505, L503.6005, L500.4050, L501.4021, L100.0100 #### [facility] [address] [place], [address] IG% 0.700 Normal 0.0-0.[address] [facility] Comment on above: Result Comment: IG% - Immature Granulocytes (promyelocytes, myelocytes and metamyelocytes) > 1% indicates that a LEFT SHIFT is Present. Performed By: #### L 503.7505, L503.6005, L500.4050, L501.4021, L100.0100 #### [facility] [address] [place], [address] Lymphocytes/100 WBC (Bld) 18.5 % Low 19-[address] [facility] Comment on above: Performed By: #### L 503.7505, L503.6005, L500.4050, L501.4021, L100.0100 #### [facility] [address] [place], [address] MCH (RBC) [Entitic mass] 23.2 pg Low 27.0-32.[address] [facility] Comment on above: Performed By: #### L 503.7505, L503.6005, L500.4050, L501.4021, L100.0100 #### [facility] [address] [place], [address] MCHC (RBC) [Mass/Vol] 29.3 g/dL Low 32-36 [facility] Comment on above: Performed By: #### L 503.7505, L503.6005, L500.4050, L501.4021, L100.0100 #### [facility] [address] [place], [address] MCV (RBC) [Entitic vol] 78.9 fL Low 81-99 [facility] Comment on above: Performed By: #### L 503.7505, L503.6005, L500.4050, L501.4021, L100.0100 #### [facility] [address] [place], [address] Monocytes/100 WBC (Bld) 13.6 % High 0-10 [facility] Comment on above: Performed By: #### L 503.7505, L503.6005, L500.4050, L501.4021, L100.0100 #### [facility] [address] [place], [address] Neutrophils/100 WBC (Bld) 63.8 % Normal 47-[address] [facility] Comment on above: Performed By: #### L 503.7505, L503.6005, L500.4050, L501.4021, L100.0100 #### [facility] [address] [place], [address] Nucleated RBC (Bld) [#/Vol] 0.6 10*3/uL Normal 0-[address] [facility] Comment on above: Performed By: #### L 503.7505, L503.6005, L500.4050, L501.4021, L100.0100 #### [facility] [address] [place], [address] Platelet mean volume (Bld) [Entitic vol] 10.8 fL Normal 6.2-12.[address] [facility] Comment on above: Performed By: #### L 503.7505, L503.6005, L500.4050, L501.4021, L100.0100 #### [facility] [address] [place], [address] Platelets (Bld) [#/Vol] 237 10*3/uL Normal 150-[address] [facility] Comment on above: Performed By: #### L 503.7505, L503.6005, L500.4050, L501.4021, L100.0100 #### [facility] [address] [place], [address] RBC (Bld) [#/Vol] 3.80 10*6/uL Low 4.2-5.4 [facility] Comment on above: Performed By: #### L 503.7505, L503.6005, L500.4050, L501.4021, L100.0100 #### [facility] [address] [place], [address] RDW SD 53.7 fl High 35.1-43.[address] [facility] Comment on above: Performed By: #### L 503.7505, L503.6005, L500.4050, L501.4021, L100.0100 #### [facility] [address] [place], [address] WBC (Bld) [#/Vol] 6.7 10*3/uL Normal 4.4-11.0 [facility] Comment on above: Performed By: #### L 503.7505, L503.6005, L500.4050, L501.4021, L100.0100 #### [facility] [address] [place], [place], [address] Carbon dioxide, total [Moles /volume] in Central venous bloodOrdered By: Bernardo Judd on 02-08-2025 CO2 [Moles/Vol] 18.9 mmol/L Low 21.0-32.[address] [facility] Chest 1 View (Portable)on Chest 1 View (Portable) [facility] Imaging Services [address] [place] [address] Chest 1 View (Portable) MR#: [id number] Acct: [id number] Name: GUDELIA GUPTA Rep #: [id number] : 1940 F 84 From: Martínez Garcia PCP: Dr. Victor M Rocha MD Status: [facility] ER Study: Chest 1 View (Portable) Date of Exam: 02/08/25 Exam# [id number] Ordering Dr: Bernardo Judd DO PROCEDURE: CHEST 1 VIEW (PORTABLE) 02/08/2025 REASON FOR EXAM: SHORTNESS OF BREATH TECHNIQUE: Frontal view of the chest. COMPARISON: 04/05/24 FINDINGS: Mild pulmonary edema. No focal consolidations. Trace left base effusion. No pneumothorax. Moderate cardiomegaly. Calcified aortic arch. No acute fractures. Left chest pacer. RAD/Chest 1 View (Portable) IMPRESSION: Mild pulmonary edema. No focal consolidations. Trace left base effusion. Moderate cardiomegaly. Reading Location: [facility] CC: Dr. Victor M Rocha MD; Dr. Bernardo Judd DO Job Checker: Signed Normal [facility] Chloride assayOrdered By: Remy Judd on 02-08-2025 Chloride [Moles/Vol] 102 mmol/L 98-108 [facility] Comprehensive Metabolic Prof ilon 02-08-2025 Albumin [Mass/Vol] 3.7 g/dL Normal 3.4-4.8 [facility] Comment on above: Performed By: #### L 503.7505, L503.6005, L500.4050, L501.4021, L100.0100 #### [facility] [address] [place], [address] Albumin/Globulin [Mass ratio] 0.8 {ratio} Low 0.9-2.[address] [facility] Comment on above: Performed By: #### L 503.7505, L503.6005, L500.4050, L501.4021, L100.0100 #### [facility] [address] [place], [address] ALK PHOS 140 U/L High 35-[address] [facility] Comment on above: Performed By: #### L 503.7505, L503.6005, L500.4050, L501.4021, L100.0100 #### [facility] [address] [place], [address] ALT [Catalytic activity/Vol] 10 U/L Normal <=[address] [facility] Comment on above: Performed By: #### L 503.7505, L503.6005, L500.4050, L501.4021, L100.0100 #### [facility] [address] [place], [address] AST [Catalytic activity/Vol] 35 U/L High <=[address] [facility] Comment on above: Result Comment: Hemo lysis present, Results??could be affected. ?? Performed By: #### L 503.7505, L503.6005, L500.4050, L501.4021, L100.0100 #### [facility] [address] [place], [address] Bilirubin [Mass/Vol] 0.56 mg/dL Normal 0.00-1.30 [facility] Comment on above: Performed By: #### L 503.7505, L503.6005, L500.4050, L501.4021, L100.0100 #### [facility] [address] [place], [address] BUN/CRE 14.4 RATIO Normal 10-[address] [facility] Comment on above: Performed By: #### L 503.7505, L503.6005, L500.4050, L501.4021, L100.0100 #### [facility] [address] [place], [address] Calcium [Mass/Vol] 9.0 mg/dL Normal 7.6-11.0 [facility] Comment on above: Performed By: #### L 503.7505, L503.6005, L500.4050, L501.4021, L100.0100 #### [facility] [address] [place], [address] Chloride [Moles/Vol] 102 mmol/L Normal 98-108 [facility] Comment on above: Performed By: #### L 503.7505, L503.6005, L500.4050, L501.4021, L100.0100 #### [facility] [address] [place], [address] CO2 [Moles/Vol] 18.9 mmol/L Low 21.0-32.[address] [facility] Comment on above: Performed By: #### L 503.7505, L503.6005, L500.4050, L501.4021, L100.0100 #### [facility] [address] [place], [address] Creatinine [Mass/Vol] 1.42 mg/dL High 0.70-1.20 [facility] Comment on above: Performed By: #### L 503.7505, L503.6005, L500.4050, L501.4021, L100.0100 #### [facility] [address] [place], [address] ECRCL 33.68 ml/min Low 50-[address] [facility] Comment on above: Performed By: #### L 503.7505, L503.6005, L500.4050, L501.4021, L100.0100 #### [facility] [address] [place], [address] GAP 15 Normal 5-[address] [facility] Comment on above: Performed By: #### L 503.7505, L503.6005, L500.4050, L501.4021, L100.0100 #### [facility] [address] [place], [address] GFR/1.73 sq M.predicted among non-blacks MDRD (S/P/Bld) [Vol rate/Area] 36 mL/min/{1.73_m2} Low >[address] [facility] Comment on above: Result Comment: mL/m in/1.73m2 CKD-EPI Creatinine Equation (2020) Performed By: #### L 503.7505, L503.6005, L500.4050, L501.4021, L100.0100 #### [facility] [address] [place], [address] Globulin (S) [Mass/Vol] 4.8 g/dL High 2.2-4.2 [facility] Comment on above: Performed By: #### L 503.7505, L503.6005, L500.4050, L501.4021, L100.0100 #### [facility] [address] [place], [address] Glucose [Mass/Vol] 93 mg/dL Normal 70-99 [facility] Comment on above: Performed By: #### L 503.7505, L503.6005, L500.4050, L501.4021, L100.0100 #### [facility] [address] [place], [address] Potassium [Moles/Vol] 4.1 mmol/L Normal 3.3-5.1 [facility] Comment on above: Result Comment: Hemo lysis present, Results??could be affected. ?? Performed By: #### L 503.7505, L503.6005, L500.4050, L501.4021, L100.0100 #### [facility] [address] [place], [address] Sodium [Moles/Vol] 135 mmol/L Normal 133-145 [facility] Comment on above: Performed By: #### L 503.7505, L503.6005, L500.4050, L501.4021, L100.0100 #### [facility] [address] [place], [address] T PROT 8.5 g/dL High 5.9-8.[address] [facility] Comment on above: Performed By: #### L 503.7505, L503.6005, L500.4050, L501.4021, L100.0100 #### [facility] [address] [place], [address] Urea nitrogen [Mass/Vol] 21 mg/dL High 4-[address] [facility] Comment on above: Performed By: #### L 503.7505, L503.6005, L500.4050, L501.4021, L100.0100 #### [facility] [address] [place], [address] Emergency Department Summary on 02-08-2025 Emergency Department Summary [facility] Medical Records Department [address] [place] [address] Emergency Department Summary 02/08/25 MR#: [id number] Acct: [id number] Name: GUDELIA GUPTA Rep #: [id number] : 1940 84 From: Bernardo Judd DO PCP: Dr. Victor M Rocha MD Status:ADM IN Location: [place] [address] HPI History of Present Illness Chief Complaint: General Illness [facility] Medical History Coronary artery disease Iron deficiency anemia History of non-ST elevation myocardial infarction (NSTEMI) (2013) Longstanding persistent atrial fibrillation Essential (primary) hypertension Anxiety Hypothyroidism Hyperlipidemia Secondary pulmonary arterial hypertension Atherosclerosis of coronary artery of [place] heart without angina pectoris Paroxysmal atrial fibrillation Paroxysmal atrial flutter Sick sinus syndrome Home Medications ???Medication ???Instructions ???Recorded ???Last Taken ???Type buspirone 15 mg tablet 15 mg PO BID ANXIETY 06/02/13 Unkn own History omeprazole 40 mg capsule,delayed 40 mg PO DAILY ACID REFLUX 3 04/11/24 History release nitroglycerin 0.4 mg sublingual 0.4 mg sublingual Q5M PRN CHEST Unknown History tablet PAIN glimepiride 4 mg tablet 2 mg PO DAILY DIABETES 01/24/22 History amitriptyline 50 mg tablet 50 mg PO QHS DEPRESSION 02/17/23 U nknown History empagliflozin 10 mg tablet 10 mg PO DAILY DIABETES 02/17/23 U nknown History (Jardiance) ketotifen fumarate 0.025 % (0.035 1 drp ophthalmic (eye) BID PRN Unknown History %) eye drops ([place]) ITCHING/ALLERGIES levothyroxine 100 mcg tablet 100 mcg PO DAILY THYROID 12/14/23 Unknown History (Synthroid) furosemide 40 mg tablet (Lasix) 40 mg PO DAILY water pill #60 tabs 12/17/23 Unknown Rx rivaroxaban 20 mg tablet (Xarelto) 20 mg PO QPM #90 tabs 10/06/24 U nknown Rx losartan 100 mg tablet 100 mg PO DAILY blood pressure #90 11/18/24 Unknown Rx tabs potassium chloride 20 mEq 40 meq (2 x 20 mEq) PO QDAY #90 Unknown Rx tablet,extended release(part/cryst) tabs metoprolol succinate 50 mg 50 mg PO DAILY heart/BP #90 tabs 0 11/23/24 Unknown Rx tablet,extended release 24 hr simvastatin 20 mg tablet 20 mg PO QHS CHOLESTEROL #90 tabs 12/22/24 Unknown Rx amlodipine 10 mg tablet 10 mg PO DAILY 02/08/25 Unknown Hi story ciprofloxacin HCl 500 mg tablet 500 mg PO BID 02/08/25 Unknown His tory ferrous sulfate 325 mg (65 mg 65 mg PO DAILY 02/08/25 Unknown Hi story iron) tablet (FeroSul) oxycodone-acetaminop hen 5 mg-325 1 tab PO TID PRN PRN pain 02/08/25 Unknown History mg tablet Allergy/AdvReac Type Severity Reaction Status Date / Time poison fany extract (Poison Allergy Rash Verified 02/08/25 16:56 Fany Extract) Sulfa (Sulfonamide Allergy Hives Verified 02/08/25 16:56 Antibiotics) Family History Mother Cancer Father Cancer Brother CAD (coronary artery disease) Sister CAD (coronary artery disease) Surgical History S/P kyphoplasty History of tubal ligation History of appendectomy History of hysterectomy History of left heart catheterization (10/09/13) History of coronary artery stent placement (09/2010) Hx of atrioventricular node ablation (03/31/16) Presence of cardiac pacemaker (04/26/15) Social History household members: spouse Smoking Status: Former smoker how long ago did patient quit smokin's alcohol intake: never substance use type: does not use caffeine: Yes Type: coffee Number of servings: 3 EXAM Physical Exam Const Vital Signs: 02/08/25 16:54 02/08/25 17:12 02/08/25 17:13 Temperature 97.5 F L Temperature Source Oral Pulse Rate 80 Respiratory Rate 22 H Blood Pressure 157/64 H Blood Pressure Mean 95 Pulse Ox 93 84 94 Oxygen Delivery Method Room Air Room Air Nasal Cannula Oxygen Flow Rate (L/min) 2 02/08/25 19:00 02/08/25 19:17 Temperature Temperature Source Pulse Rate 80 Respiratory Rate 24 H 22 H Blood Pressure 156/67 H Blood Pressure Mean 96 Pulse Ox 90 91 Oxygen Delivery Method Room Air Oxygen Flow Rate (L/min) MDM MDM MDM Narrative Medical decision making narrative: HISTORY OF PRESENT ILLNESS: Chief complaint: Fatigue, dysuria, shortness of breath 84-year-old female history of A-fib, sick sinus syndrome status post pacemaker, on chronic anticoagulation in the form of Xarelto, acute hypoxemic respiratory failure, heart failure, CAD status post stent, pulmonary artery hypertension. The patient states she c (more content not included)... Normal [facility] Eosinophil percentageOrdered By: Bernardo Judd on 02-08-2025 Eosinophils/100 WBC (Bld) 2.8 % 0-[address] [facility] Erythrocyte distribution wid th ratioOrdered By: Bernardo Judd on 02-08-2025 Erythrocyte distribution width (RBC) [Ratio] 18.7 % High 11.6-14.[address] [facility] Erythrocyte distribution wid th standard deviationOrdered By: Bernardo Judd on 02-08-2025 Erythrocyte distribution width (RBC) [Ratio] 53.7 fl High 35.1-43.[address] [facility] Glomerular filtration rate ( GFR) estimation/1.73 sq m using serum, plasma, or whole bOrdered By: Bernardo Judd on 02-08-2025 GFR/1.73 sq M.predicted among non-blacks MDRD (S/P/Bld) [Vol rate/Area] 36 mL/min/{1.73_m2} Low >[address] [facility] Comment on above: mL/min/1.73m2 CKD-EP I Creatinine Equation (2020) H AND P Exam - [place] 02-08-2025 H&P Exam - Hospitalist [facility] Medical Records Department [address] [place] [address] H P Exam - Hospitalist 02/08/252017 MR#: [id number] Acct: [id number] Name: GUDELIA GUPTA Rep #: [id number] : 1940 84 From: Deandre Xiao DO PCP: Dr. Victor M Rocha MD Status:ADM IN Location: [place] [id number] HPI - General General Date of Admission: 02/08/25 Date of Service: 02/08/25 Chief Complaint: SOB. HPI Narrative GUDELIA GUPTA, is a 84 F with a past medical history of essential hypertension; on amlodipine, losartan, metoprolol and furosemide, hyperlipidemia; on simvastatin, hypothyroidism; on levothyroxine, overweight; with BMI of 29.6 this admission, DM-2; of unknown control on glimepiride and empagliflozin, paroxysmal atrial fibrillation; s/p AV isael ablation on apixaban, CAD; s/p RCA and LAD stents (2010) on as needed SL NTG, history of sick sinus syndrome; s/p PPM (2014), chronic mild systolic CHF; with LVEF of 45% with 2+ mitral valve insufficiency and 1+ aortic valve insufficiency RSVP at 50 mmHg, secondary pulmonary arterial hypertension, history of multiple myeloma; followed by Dr. Baker, chronic iron deficiency anemia; on ferrous sulfate, depression with anxiety; on amitriptyline and buspirone twice daily, GERD; on omeprazole, osteoporosis; with history of compression fracture of thoracic vertebrae and OA; on oxycodone-acetaminop hen 3 times daily as needed who presents to [facility] ER complaining of shortness of breath. Ms. Gupta reports she has had ongoing symptoms since last April in 2023 but acutely worsened over the past few days with worsening dyspnea on exertion that progressed to shortness of breath at rest. She also admits to feeling very fatigued and that she cannot do anything physically without becoming completely exhausted in addition to dry cough. She states she was recently diagnosed with a UTI after complaining of dysuria and she was subsequently treated with ciprofloxacin with her first dose taken last night. She states her symptoms are similar to her previous AE CHF for which she required supplemental oxygen, which she returned at because she was not using it. She additionally states she has been taking her furosemide as prescribed and she denies lower extremity edema. There was no report of associated fever, chills, runny nose, sore throat, ear pain, nausea, vomiting, diarrhea, constipation, abdominal pain, chest pain, palpitations, heart racing, headache or rash. In the ER she was noted to have an elevated NT pro-BNP II of 1,833 pg/mL present on admission with a corresponding CXR that revealed mild pulmonary edema with moderate cardiomegaly and trace Left pleural effusion with no focal consolidations complicated by clinical evidence of Acute Respiratory Insufficiency with patient requiring 2L NC with a mildly elevated troponin T of 26 ng/L present on admission suspected to be due to acute cardiac strain. She was then admitted to the PCU for ongoing care for stay that is expected to extend beyond 2 midnights. [facility] Medical History Coronary artery disease Iron deficiency anemia History of non-ST elevation myocardial infarction (NSTEMI) (2013) Longstanding persistent atrial fibrillation Essential (primary) hypertension Anxiety Hypothyroidism Hyperlipidemia Secondary pulmonary arterial hypertension Atherosclerosis of coronary artery of [place] heart without angina pectoris Paroxysmal atrial fibrillation Paroxysmal atrial flutter Sick sinus syndrome Home Medications ???Medication ???Instructions ???Recorded ???Last Taken ???Type buspirone 15 mg tablet 15 mg PO BID ANXIETY 06/02/13 Unkn own History omeprazole 40 mg capsule,delayed 40 mg PO DAILY ACID REFLUX 3 04/11/24 History release nitroglycerin 0.4 mg sublingual 0.4 mg sublingual Q5M PRN CHEST Unknown History tablet PAIN glimepiride 4 mg tablet 2 mg PO DAILY DIABETES 01/24/22 History amitriptyline 50 mg tablet 50 mg PO QHS DEPRESSION 02/17/23 U nknown History empagliflozin 10 mg tablet 10 mg PO DAILY DIABETES 02/17/23 U nknown History (Jardiance) ketotifen fumarate 0.025 % (0.035 1 drp ophthalmic (eye) BID PRN Unknown History %) eye drops ([place]) ITCHING/ALLERGIES levothyroxine 100 mcg tablet 100 mcg PO DAILY THYROID 12/14/23 Unknown History (Synthroid) furosemide 40 mg tablet (Lasix) 40 mg PO DAILY water pill #60 tabs 12/17/23 Unknown Rx rivaroxaban 20 mg tablet (Xarelto) 20 mg PO QPM #90 tabs 10/06/24 U nknown Rx losartan 100 mg tablet 100 mg PO DAILY blood pressure #90 11/18/24 Unknown Rx tabs potassium chloride 20 mEq 40 meq (2 x 20 mEq) PO QDAY #90 Unknown Rx tablet,extended release(part/cryst) tabs metoprolol succinate 50 mg 50 mg PO DANIELLA (more content not included)... Normal [facility] Hematocrit Auto (Bld) [Volum e fraction]Ordered By: Bernardo Judd on 02-08-2025 Hematocrit (Bld) [Volume fraction] 30.0 % Low 37-[address] [facility] Hemoglobin A1con 02-08-2025 HbA1c (Bld) [Mass fraction] 6.7 % High <=5.[address] [facility] Comment on above: Result Comment: Norm al < 5.7 % Prediabetic 5.7 - 6.4 % Diabetic >or= 6.5 % Please note range changes. Performed By: #### L 503.7505, L503.6005, L500.4050, L501.4021, L100.0100 #### [facility] [address] [place], [address] Hemoglobin A1c percentageOrd ered By: Deandre Mtz on 02-08-2025 HbA1c (Bld) [Mass fraction] 6.7 % High <5.[address] [facility] Comment on above: Normal < 5.7 % Predi abetic 5.7 - 6.4 % Diabetic >or= 6.5 % Please note range changes. Hemoglobin measurementOrdere d By: Bernardo Judd on 02-08-2025 Hemoglobin (Bld) [Mass/Vol] 8.8 g/dL Low 12.0-15.[address] [facility] Immature granulocytes/100 WB C Auto (Bld)Ordered By: Bernardo Judd on 02-08-2025 Immature granulocytes/100 WBC (Bld) 0.700 % 0.0-0.[address] [facility] Comment on above: IG% - Immature Granu locytes (promyelocytes, myelocytes and metamyelocytes) > 1% indicates that a LEFT SHIFT is Present. Influenza virus A and B and SARS-CoV-2 (COVID-19) and Respiratory syncytial virus RNAOrdered By: Bernardo Judd on 02-08-2025 SARS-CoV-2 (COVID-19) RNA CASSIE+probe Ql (Unsp spec) [facility] L501.4021on 02-08-2025 Trop T High Sen 26 ng/L High <=[address] [facility] Comment on above: Performed By: #### L 503.7505, L503.6005, L500.4050, L501.4021, L100.0100 #### [facility] [address] [place], [address] Laboratory - Chemistry and C hemistry - challengeOrdered By: Bernardo Judd on 02-08-2025 AST [Catalytic activity/Vol] 35 U/L High <[address] [facility] Comment on above: Hemolysis present, R esults could be affected. Lactic Acidon 02-08-2025 Lactate [Moles/Vol] 1.3 mmol/L Normal 0.0-2.0 [facility] Comment on above: Order Comment: Y Performed By: #### L 503.7505, L503.6005, L500.4050, L501.4021, L100.0100 #### [facility] [address] [place], [address] Lactic acid measurementOrder ed By: Bernardo Judd on 02-08-2025 Lactate [Moles/Vol] 1.3 mmol/L 0.0-2.0 [facility] M100.678on 02-08-2025 M100.678 Pending SARS-CoV-2 (COVID 19) Negative INFLUENZA A Negative INFLUENZA B Negative RSV PCR Negative Normal [facility] Comment on above: Performed By: #### L 501.080 #### [facility] [address] [place], [address] MCV (mean corpuscular volume ) determinationOrdered By: Bernardo Judd on 02-08-2025 MCV (RBC) [Entitic vol] 78.9 fL Low 81-99 [facility] Magnesiumon 02-08-2025 Magnesium [Mass/Vol] 2.2 mg/dL Normal 1.5-2.2 [facility] Comment on above: Performed By: #### L 503.7505, L503.6005, L500.4050, L501.4021, L100.0100 #### [facility] [address] [place], [address] Magnesium measurement (mass/ volume)Ordered By: Deandre Mtz on 02-08-2025 Magnesium (Unsp spec) [Mass/Vol] 2.2 mg/dL 1.5-2.[address] [facility] Mean corpuscular hemoglobin (MCH) determinationOrdered By: Bernardo Judd on 02-08-2025 MCH (RBC) [Entitic mass] 23.2 pg Low 27.0-32.[address] [facility] Mean corpuscular hemoglobin concentration (MCHC) determinationOrdered By: Bernardo Judd on 02-08-2025 MCHC (RBC) [Mass/Vol] 29.3 g/dL Low 32-36 [facility] Mean platelet volume determi nationOrdered By: Bernardo Judd on 02-08-2025 Platelet mean volume (Bld) [Entitic vol] 10.8 fL 6.2-12.[address] [facility] Monocyte percentageOrdered B y: Bernardo Judd on 02-08-2025 Monocytes/100 WBC (Bld) 13.6 % High 0-10 [facility] Natriuretic peptide.B prohor chris N-Terminal [Mass/volume] in Serum or PlasmaOrdered By: Bernardo Judd on 02-08-2025 Natriuretic peptide.B prohormone N-Terminal [Mass/Vol] 1833 pg/mL High <[address] [facility] Comment on above: Heart Failure Unlike ly: < 300 pg/mLHeart Failure Likely< 50 Years: > 450 pg/mL50-75 Years: > 900 pg/mL>75 Years: > 1800 pg/mL Neutrophil percentageOrdered By: Bernardo Judd on 02-08-2025 Neutrophils/100 WBC (Bld) 63.8 % 47-[address] [facility] Nucleated red blood cell per centageOrdered By: Bernardo Judd on 02-08-2025 Nucleated RBC/100 WBC (Bld) [Ratio] 0.6 % 0-[address] [facility] Platelet countOrdered By: Remy Judd on 02-08-2025 Platelets (Bld) [#/Vol] 237 10*3/uL 150-[address] [facility] Potassium measurement (mass/ volume)Ordered By: Bernardo Judd on 02-08-2025 Potassium (Unsp spec) [Mass/Vol] 4.1 mmol/L 3.3-5.[address] [facility] Comment on above: Hemolysis present, R esults could be affected. Pro- Brain NATRIURETIC PEPTI Kiesha 02-08-2025 Natriuretic peptide B (Bld) [Mass/Vol] 1833 pg/mL High <=[address] [facility] Comment on above: Result Comment: Hear t Failure Unlikely: < 300 pg/mL Heart Failure Likely < 50 Years: > 450 pg/mL 50-75 Years: > 900 pg/mL >75 Years: > 1800 pg/mL Performed By: #### L 503.7505, L503.6005, L500.4050, L501.4021, L100.0100 #### [facility] [address] [place], [address] RBC Auto (Bld) [#/Vol]Ordere d By: Bernardo Judd on 02-08-2025 RBC (Bld) [#/Vol] 3.80 10*6/uL Low 4.2-5.4 [facility] Serum creatinine measurement (mass/volume)Ordered By: Bernardo Judd on 02-08-2025 Creatinine [Mass/Vol] 1.42 mg/dL High 0.70-1.20 [facility] Serum globulin measurementOr dered By: Bernardo Judd on 02-08-2025 Globulin (S) [Mass/Vol] 4.8 g/dL High 2.2-4.2 [facility] Serum glucose measurement (m ass/volume)Ordered By: Bernardo Judd on 02-08-2025 Glucose [Mass/Vol] 93 mg/dL 70-99 [facility] Serum or plasma alanine figueroa otransferase (ALT) measurementOrdered By: Bernardo Judd on 02-08-2025 ALT [Catalytic activity/Vol] 10 U/L <[address] [facility] Serum or plasma albumin fernando urement (mass/volume)Ordered By: Bernardo Judd on 02-08-2025 Albumin [Mass/Vol] 3.7 g/dL 3.4-4.8 [facility] Serum or plasma albumin/glob ulin mass ratioOrdered By: Bernardo Judd on 02-08-2025 Albumin/Globulin [Mass ratio] 0.8 {ratio} Low 0.9-2.[address] [facility] Serum or plasma alkaline janette sphatase measurementOrdered By: Bernardo Judd on 02-08-2025 ALP [Catalytic activity/Vol] 140 U/L High 35-[address] [facility] Serum or plasma calcium fernando urement (mass/volume)Ordered By: Bernardo Judd on 02-08-2025 Calcium [Mass/Vol] 9.0 mg/dL 7.6-11.0 [facility] Serum or plasma urea nitroge n measurement (mass/volume)Ordered By: Bernardo Judd on 02-08-2025 Urea nitrogen [Mass/Vol] 21 mg/dL High 4-[address] [facility] Sodium levelOrdered By: Ronnie Judd on 02-08-2025 Sodium [Moles/Vol] 135 mmol/L 133-145 [facility] TSH DL <= 0.005 mIU/L QnOrde red By: Deandre Mtz on 02-08-2025 TSH Qn 3.080 uIU/mL 0.300-4.[address] [facility] Thyroid Stim Hormone (TSH)on 02-08-2025 TSH 3.080 uIU/mL Normal 0.300-4.[address] [facility] Comment on above: Performed By: #### L 503.7505, L503.6005, L500.4050, L501.4021, L100.0100 #### [facility] [address] [place], [place], [id number] Total proteinOrdered By: Natalie Judd on 02-08-2025 Protein [Mass/Vol] 8.5 g/dL High 5.9-8.4 [facility] Troponin T HS 2 HRon 025 Trop T High Sen 28 ng/L High <=[address] [facility] Comment on above: Performed By: #### L 501.080 #### [facility] [address] [place], [place], [id number] Troponin T HS 4 HRon 025 Trop T High Sen 27 ng/L High <=[address] [facility] Comment on above: Performed By: #### L 499.0043 #### [facility] [address] [place], [address] Troponin T.cardiac [Mass/vol ume] in Serum or Plasma by High sensitivity methodOrdered By: Bernardo Judd on 02-08-2025 Troponin T.cardiac High sensitivity method [Mass/Vol] 27 ng/L High <[address] [facility] Troponin T.cardiac High sensitivity method [Mass/Vol] 28 ng/L High <[address] [facility] Troponin T.cardiac High sensitivity method [Mass/Vol] 26 ng/L High <[address] [facility] Urinalysis, Completeon 02-08 BACTERIA Normal None Seen [facility] Comment on above: Order Comment: JOSE CTOR TO SPECIFY Result Comment: BLAZE ENT DISCHARGED, NO SPECIMEN COLLECTED Performed By: #### L 500.2500, L100.0100 #### [facility] [address] [place], [address] BILIRUBIN URINE Normal Negative [facility] Comment on above: Order Comment: COLLE CTOR TO SPECIFY Result Comment: BLAZE ENT DISCHARGED, NO SPECIMEN COLLECTED Performed By: #### L 500.2500, L100.0100 #### [facility] [address] [place], [address] Clarity (U) Normal Clear [facility] Comment on above: Order Comment: JOSE CTOR TO SPECIFY Result Comment: BLAZE ENT DISCHARGED, NO SPECIMEN COLLECTED Performed By: #### L 500.2500, L100.0100 #### [facility] [address] [place], [address] Color (U) Normal Yellow [facility] Comment on above: Order Comment: JOSE CTOR TO SPECIFY Result Comment: BLAZE ENT DISCHARGED, NO SPECIMEN COLLECTED Performed By: #### L 500.2500, L100.0100 #### [facility] [address] [place], [address] EPI,SQUAMOUS Normal 5-[address] [facility] Comment on above: Order Comment: COLLE CTOR TO SPECIFY Result Comment: BLAZE ENT DISCHARGED, NO SPECIMEN COLLECTED Performed By: #### L 500.2500, L100.0100 #### [facility] [address] [place], [address] GLUCOSE, UR Normal Normal [facility] Comment on above: Order Comment: JOSE CTOR TO SPECIFY Result Comment: BLAZE ENT DISCHARGED, NO SPECIMEN COLLECTED Performed By: #### L 500.2500, L100.0100 #### [facility] [address] [place], [address] KETONE UR Normal Negative [facility] Comment on above: Order Comment: COLLE CTOR TO SPECIFY Result Comment: BLAZE ENT DISCHARGED, NO SPECIMEN COLLECTED Performed By: #### L 500.2500, L100.0100 #### [facility] [address] [place], [address] LEUK ESTERASE Normal Negative [facility] Comment on above: Order Comment: JOSE CTOR TO SPECIFY Result Comment: BLAZE ENT DISCHARGED, NO SPECIMEN COLLECTED Performed By: #### L 500.2500, L100.0100 #### [facility] [address] [place], [address] Mucus Ql (Urine sed) Normal [facility] Comment on above: Order Comment: JOSE CTOR TO SPECIFY Result Comment: BLAZE ENT DISCHARGED, NO SPECIMEN COLLECTED Performed By: #### L 500.2500, L100.0100 #### [facility] [address] [place], [address] Nitrite Ql (U) Normal Negative [facility] Comment on above: Order Comment: JOSE CTOR TO SPECIFY Result Comment: BLAZE ENT DISCHARGED, NO SPECIMEN COLLECTED Performed By: #### L 500.2500, L100.0100 #### [facility] [address] [place], [address] OCCULT BLOOD-UR Normal Negative [facility] Comment on above: Order Comment: JOSE CTOR TO SPECIFY Result Comment: BLAZE ENT DISCHARGED, NO SPECIMEN COLLECTED Performed By: #### L 500.2500, L100.0100 #### [facility] [address] [place], [address] pH UR Normal 5.0 - 8.[address] [facility] Comment on above: Order Comment: JOSE CTOR TO SPECIFY Result Comment: BLAZE ENT DISCHARGED, NO SPECIMEN COLLECTED Performed By: #### L 500.2500, L100.0100 #### [facility] [address] [place], [address] PROT DIPSTX Normal Negative [facility] Comment on above: Order Comment: JOSE CTOR TO SPECIFY Result Comment: BLAZE ENT DISCHARGED, NO SPECIMEN COLLECTED Performed By: #### L 500.2500, L100.0100 #### [facility] [address] [place], [address] RBC Normal 0-[address] [facility] Comment on above: Order Comment: JOSE CTOR TO SPECIFY Result Comment: BLAZE ENT DISCHARGED, NO SPECIMEN COLLECTED Performed By: #### L 500.2500, L100.0100 #### [facility] [address] [place], [address] SP.GR. DIPSTX Normal 1.002-1.[address] [facility] Comment on above: Order Comment: JOSE CTOR TO SPECIFY Result Comment: BLAZE ENT DISCHARGED, NO SPECIMEN COLLECTED Performed By: #### L 500.2500, L100.0100 #### [facility] [address] [place], [address] UR Preservative Normal [facility] Comment on above: Order Comment: JOSE CTOR TO SPECIFY Result Comment: BLAZE ENT DISCHARGED, NO SPECIMEN COLLECTED Performed By: #### L 500.2500, L100.0100 #### [facility] [address] [place], [address] UROBILI Normal Normal [facility] Comment on above: Order Comment: JOSE CTOR TO SPECIFY Result Comment: BLAZE ENT DISCHARGED, NO SPECIMEN COLLECTED Performed By: #### L 500.2500, L100.0100 #### [facility] [address] [place], [address] WBC Normal 0-[address] [facility] Comment on above: Order Comment: COLLE CTOR TO SPECIFY Result Comment: BLAZE ENT DISCHARGED, NO SPECIMEN COLLECTED Performed By: #### L 500.2500, L100.0100 #### [facility] [address] [place], [address] White blood cell (WBC) count Ordered By: Bernardo Judd on 02-08-2025 WBC (Bld) [#/Vol] 6.7 10*3/uL 4.4-11.0 [facility] Bacteria Ur Culton Bacteria identified Cx Nom (U) CULTURE, URINE: Normal urogenital jaspreet: ORGANISM ID: 1 >=100,000 CFU/ml Staphylococcus epidermidis No further workup. Normal [facility] Comment on above: Performed By: #### 6 30-4, 09269-9 ####[facility] [id number] [place] [address] [place] Urinalysis complete panel (U )on 02-07-2025 [place]ER[place] 4507.8 uL High Negative [facility] Comment on above: Order Comment: Speci men Type: URINE SPECIMENOrdering Facility: [facility] Address: [address] [place] [address] Performed By: #### 6 30-, 04224-6 ####[facility] [id number] [place] [id number] [place] Bilirubin Ql (U) Negative Normal Negative [facility] Comment on above: Order Comment: Speci men Type: URINE SPECIMENOrdering Facility: [facility] Address: [address] [place] [address] Performed By: #### 6 30-4, 65923-1 ####[facility] [id number] [address] [address] [place] Clarity (Unsp spec) Clear Normal Clear [facility] Comment on above: Order Comment: Speci men Type: URINE SPECIMENOrdering Facility: [facility] Address: [address] [place] [address] Performed By: #### 6 30-4, 48006-4 ####[facility] [id number] [address] [address] [place] Color (U) Yellow Normal Yellow [facility] Comment on above: Order Comment: Speci men Type: URINE SPECIMENOrdering Facility: [facility] Address: [address] [place] [address] Performed By: #### 6 30-4, 69013-4 ####[facility] [id number] [place] [address] [place] Epithelial cells LM.HPF (Urine sed) [#/Area] None Seen Normal [facility] Comment on above: Order Comment: Speci men Type: URINE SPECIMENOrdering Facility: [facility] Address: [address] [place] [address] Performed By: #### 6 30-4, 08358-7 ####[facility] [id number] [place] [address] [place] Glucose Test strip (U) [Mass/Vol] 2+ Abnormal Negative [facility] Comment on above: Order Comment: Speci men Type: URINE SPECIMENOrdering Facility: [facility] Address: [address] [place] [address] Performed By: #### 6 30-4, 35897-8 ####[facility] [id number] [place] [id number] [place] Hemoglobin Ql (U) Negative Normal Negative [facility] Comment on above: Order Comment: Speci men Type: URINE SPECIMENOrdering Facility: [facility] Address: [address] [place] [address] Performed By: #### 6 30-4, 42979-1 ####[facility] [id number] [address] [place] [address] [place] Hyaline casts (Urine sed) [#/Area] 1-3 /LPF Abnormal 0 /LPF [facility] Comment on above: Order Comment: Speci men Type: URINE SPECIMENOrdering Facility: [facility] Address: [address] [place] [address] Performed By: #### 6 30-4, 09193-1 ####[facility] [id number] [address] [place] [address] [place] Ketones Ql (U) Negative Normal Negative [facility] Comment on above: Order Comment: Speci men Type: URINE SPECIMENOrdering Facility: [facility] Address: [address] [place] [address] Performed By: #### 6 30-4, 11503-7 ####[facility] [id number] [address], [place] [address] [place] Leukocyte esterase Test strip Ql (U) 2+ Abnormal Negative [facility] Comment on above: Order Comment: Speci men Type: URINE SPECIMENOrdering Facility: [facility] Address: [address] [place] [address] Performed By: #### 6 30-4, 88479-1 ####[facility] [id number] [place] [id number] [place] Nitrite Ql (U) Positive Abnormal Negative [facility] Comment on above: Order Comment: Speci men Type: URINE SPECIMENOrdering Facility: [facility] Address: [address] [place] [address] Performed By: #### 6 30-4, 40598-5 ####[facility] [id number] [address] [place] [address] [place] pH (U) 6.5 [pH] Normal 5.0-8.0 [facility] Comment on above: Order Comment: Speci men Type: URINE SPECIMENOrdering Facility: [facility] Address: [address] [place] [address] Performed By: #### 6 30-4, 71381-9 ####[facility] LABIA [id number] [place] [address] [place] Protein (U) [Mass/Vol] Negative Normal Negative Cl [facility] Comment on above: Order Comment: Speci men Type: URINE SPECIMENOrdering Facility: [facility] Address: [address] [place] [address] Performed By: #### 6 30-4, 54470-6 ####[facility] LABIA [id number] [place] [address] [place] RBC LM.HPF (Urine sed) [#/Area] 0-2 /HPF Normal 0-2 /HPF [facility] Comment on above: Order Comment: Speci men Type: URINE SPECIMENOrdering Facility: [facility] Address: [address] [place] [address] Performed By: #### 6 30-4, 62255-8 ####[facility] [id number] [place] [address] [place] Specific gravity (U) [Rel density] 1.010 Normal 1.005-1.030 [facility] Comment on above: Order Comment: Speci men Type: URINE SPECIMENOrdering Facility: [facility] Address: [address] [place] [address] Performed By: #### 6 30-4, 07679-4 ####[facility] [id number] [place] [id number] [place] Urobilinogen Ql (U) 0.2 EU/dL Normal 0.2-1.0 EU/dL [facility] Comment on above: Order Comment: Speci men Type: URINE SPECIMENOrdering Facility: [facility] Address: [address] [place] [address] Performed By: #### 6 30-4, 09407-4 ####[facility] [id number] [address] [place] [facility] WBC LM.HPF (Urine sed) [#/Area] 11-20 /HPF Abnormal 0-5 /HPF [facility] Center Comment on above: Order Comment: Speci men Type: URINE SPECIMENOrdering Facility: [facility] Address: [address] [place] [address] Performed By: #### 6 30-4, 90132-4 ####[facility] LABCLIA [id number] [address] [place] CBC W Auto Differential pane l (Bld)on 02-06-2025 Basophils (Bld) [#/Vol] 0.05 10*3/uL [facility] Basophils/100 WBC (Bld) 0.8 % [facility] Differential cell count method Nom (Bld) Auto [facility] Eosinophils (Bld) [#/Vol] 0.12 10*3/uL [facility] Eosinophils/100 WBC (Bld) 1.9 % [facility] Erythrocyte distribution width (RBC) [Ratio] 18.8 % High 11.5 - 15.0 % [facility] Hematocrit (Bld) [Volume fraction] 30.5 % Low 36.0 - 46.0 % [facility] Hemoglobin (Bld) [Mass/Vol] 8.7 g/dL Low 11.5 - 15.5 g/dL [facility] Immature granulocytes (Bld) [#/Vol] [facility] Immature granulocytes/100 WBC (Bld) 0.3 % [facility] Interpretation and review of laboratory results Abnormal [facility] Lymphocytes (Bld) [#/Vol] 1.01 10*3/uL [facility] Lymphocytes/100 WBC (Bld) 16.2 % [facility] MCH (RBC) [Entitic mass] 22.8 pg Low 26. 0 - 34.0 pg [facility] MCHC (RBC) [Mass/Vol] 28.5 g/dL Low 30.5 - 36.0 g/dL [facility] MCV (RBC) [Entitic vol] 79.8 fL Low 80.0 - 100.0 fL [facility] Monocytes (Bld) [#/Vol] 0.78 10*3/uL [facility] Monocytes/100 WBC (Bld) 12.5 % C [facility] Neutrophils (Bld) [#/Vol] 4.24 10*3/uL [facility] Neutrophils/100 WBC (Bld) 68.3 % [facility] Nucleated RBC (Bld) [#/Vol] NINF [facility] Nucleated RBC/100 WBC (Bld) [Ratio] 0 % /100 WBC [facility] Platelet mean volume (Bld) [Entitic vol] 10.5 fL 9.0 - 12.7 fL [facility] Platelets (Bld) [#/Vol] 318 10*3/uL [facility] RBC (Bld) [#/Vol] 3.82 10*6/uL Low 3.90 - 5.2 0 m/uL [facility] WBC (Bld) [#/Vol] 6.22 10*3/uL [facility] Basophils (Bld) [#/Vol] 0.05 10*3/uL Normal <0.11 [facility] Comment on above: Order Comment: Speci men Type: BLOOD SPECIMENOrdering Facility: [facility] Address: [address] [place] [address] Performed By: #### 5 7021-8 ####[facility] LABIA [id number] [place] [address] [place] Basophils/100 WBC (Bld) 0.8 % Normal [facility] Comment on above: Order Comment: Speci men Type: BLOOD SPECIMENOrdering Facility: [facility] Address: [address] [place] [address] Performed By: #### 5 7021-8 ####[facility] LABIA [id number] [place] [address] [place] Differential cell count method Nom (Bld) Auto Normal [facility] Comment on above: Order Comment: Speci men Type: BLOOD SPECIMENOrdering Facility: [facility] Address: [address] [place] [address] Performed By: #### 5 7021-8 ####[facility] LABCLIA [id number] [address], [place] [address] [place] Eosinophils (Bld) [#/Vol] 0.12 10*3/uL Normal <0.46 [facility] Comment on above: Order Comment: Speci men Type: BLOOD SPECIMENOrdering Facility: [facility] Address: [address] [place] [address] Performed By: #### 5 7021-8 ####[facility] LABCLIA [id number] [address], [place] [address] [place] Eosinophils/100 WBC (Bld) 1.9 % Normal [facility] Comment on above: Order Comment: Speci men Type: BLOOD SPECIMENOrdering Facility: [facility] Address: [address] [place] [address] Performed By: #### 5 7021-8 ####[facility] LABCLIA [id number] [place] [address] [place] Erythrocyte distribution width (RBC) [Ratio] 18.8 % High 11.5-15.0 [facility] Comment on above: Order Comment: Speci men Type: BLOOD SPECIMENOrdering Facility: [facility] Address: [address] [place] [address] Performed By: #### 5 7021-8 ####[facility] LABCLIA [id number] [place] [address] [place] Hematocrit (Bld) [Volume fraction] 30.5 % Low 36.0-46.0 [facility] Comment on above: Order Comment: Speci men Type: BLOOD SPECIMENOrdering Facility: [facility] Address: [address] [place] [address] Performed By: #### 5 7021-8 ####[facility] LABCLIA [id number] [place] [address] [place] Hemoglobin (Bld) [Mass/Vol] 8.7 g/dL Low 11.5-15.5 [facility] Comment on above: Order Comment: Speci men Type: BLOOD SPECIMENOrdering Facility: [facility] Address: [address] [place] [address] Performed By: #### 5 7021-8 ####[facility] LABCLIA [id number] [place] [address] [place] Immature granulocytes (Bld) [#/Vol] 10*3/uL Normal <0.10 [facility] Comment on above: Order Comment: Speci men Type: BLOOD SPECIMENOrdering Facility: [facility] Address: [address] [place] [address] Performed By: #### 5 7021-8 ####[facility] LABCLIA [id number] [place] [address] [place] Immature granulocytes/100 WBC (Bld) 0.3 % Normal [facility] Comment on above: Order Comment: Speci men Type: BLOOD SPECIMENOrdering Facility: [facility] Address: [address] [place] [address] Performed By: #### 5 7021-8 ####[facility] LABCLIA [id number] [place] [address] [place] Lymphocytes (Bld) [#/Vol] 1.01 10*3/uL Normal 1.00-4.00 [facility] Comment on above: Order Comment: Speci men Type: BLOOD SPECIMENOrdering Facility: [facility] Address: [address] [place] [address] Performed By: #### 5 7021-8 ####[facility] LABCLIA [id number] [place] [address] [place] Lymphocytes/100 WBC (Bld) 16.2 % Normal [facility] Comment on above: Order Comment: Speci men Type: BLOOD SPECIMENOrdering Facility: [facility] Address: [address] [place], [place] [address] Performed By: #### 5 7021-8 ####[facility] LABIA [id number] [place] [address] [place] MCH (RBC) [Entitic mass] 22.8 pg Low 26.0-34.0 [facility] Comment on above: Order Comment: Speci men Type: BLOOD SPECIMENOrdering Facility: [facility] Address: [address] [place] [address] Performed By: #### 5 7021-8 ####[facility] LABIA [id number] [place] [address] [place] MCHC (RBC) [Mass/Vol] 28.5 g/dL Low 30.5-36.0 [facility] Comment on above: Order Comment: Speci men Type: BLOOD SPECIMENOrdering Facility: [facility] Address: [address] [place] [address] Performed By: #### 5 7021-8 ####[facility] [id number] [place] [address] [place] MCV (RBC) [Entitic vol] 79.8 fL Low 80.0-100.[address] [facility] Comment on above: Order Comment: Speci men Type: BLOOD SPECIMENOrdering Facility: [facility] Address: [address] [place] [address] Performed By: #### 5 7021-8 ####[facility] LABIA [id number] [place] [address] [place] Monocytes (Bld) [#/Vol] 0.78 10*3/uL Normal <0.87 [facility] Comment on above: Order Comment: Speci men Type: BLOOD SPECIMENOrdering Facility: [facility] Address: [address] [place] [address] Performed By: #### 5 7021-8 ####[facility] LABIA [id number] [address] [address] [place] Monocytes/100 WBC (Bld) 12.5 % Normal [facility] Comment on above: Order Comment: Speci men Type: BLOOD SPECIMENOrdering Facility: [facility] Address: [address] [place] [address] Performed By: #### 5 7021-8 ####[facility] LABCLIA [id number] [place] [address] [place] Neutrophils (Bld) [#/Vol] 4.24 10*3/uL Normal 1.45-7.50 [facility] Comment on above: Order Comment: Speci men Type: BLOOD SPECIMENOrdering Facility: [facility] Address: [address] [place] [address] Performed By: #### 5 7021-8 ####[facility] LABCLIA [id number] [place] [address] [place] Neutrophils/100 WBC (Bld) 68.3 % Normal [facility] Comment on above: Order Comment: Speci men Type: BLOOD SPECIMENOrdering Facility: [facility] Address: [address] [place] [address] Performed By: #### 5 7021-8 ####[facility] LABCLIA [id number] [place] [id number] [place] Nucleated RBC (Bld) [#/Vol] 10*3/uL Normal <0.01 [facility] Comment on above: Order Comment: Speci men Type: BLOOD SPECIMENOrdering Facility: [facility] Address: [address] [place] [address] Performed By: #### 5 7021-8 ####[facility] LABCLIA [id number] [place] [address] [place] Nucleated RBC/100 WBC (Bld) [Ratio] 0.0 /100 WBC Normal [facility] Comment on above: Order Comment: Speci men Type: BLOOD SPECIMENOrdering Facility: [facility] Address: [address] [place] [address] Performed By: #### 5 7021-8 ####[facility] LABCLIA [id number] [place] [address] [place] Platelet mean volume (Bld) [Entitic vol] 10.5 fL Normal 9.0-12.7 [facility] Comment on above: Order Comment: Speci men Type: BLOOD SPECIMENOrdering Facility: [facility] Address: [address] [place] [address] Performed By: #### 5 7021-8 ####[facility] LABIA [id number] [place] [address] [place] Platelets (Bld) [#/Vol] 318 10*3/uL Normal 150-400 [facility] Comment on above: Order Comment: Speci men Type: BLOOD SPECIMENOrdering Facility: [facility] Address: [address] [place] [address] Performed By: #### 5 7021-8 ####[facility] LABIA [id number] [place] [address] [place] RBC (Bld) [#/Vol] 3.82 10*6/uL Low 3.90-5.20 [facility] Comment on above: Order Comment: Speci men Type: BLOOD SPECIMENOrdering Facility: [facility] Address: [address] [place] [address] Performed By: #### 5 7021-8 ####[facility] LABCLIA [id number] [address] [address] [place] WBC (Bld) [#/Vol] 6.22 10*3/uL Normal 3.70-11.00 [facility] Comment on above: Order Comment: Speci men Type: BLOOD SPECIMENOrdering Facility: [facility] Address: [address] [place] [address] Performed By: #### 5 7021-8 ####[facility] JAMI [id number] IRENERadha [facility] [place] [id number] [place] CNOVon 02-06-2025 CNOV Office Visit (FAMWS) GUDELIA GUPTA ([id number]) 1940 F Date Time Provider Department 02/06/25 11:00 AM [facility] During your visit today, we recorded the following information about you: Temperature Pulse Respiration Blood pressure 98.4 degrees 80/minute 16/minute 138/78 Weight 88 kg Carlos House APRN.CNP 02/06/2025 12:13 PM Signed Chief Complaint Patient presents with: 6 Month Exam: Weakness and no energy HPI Gudelia Gupta is a 84 year old female who presents here today for above reason. Gudelia Gupta is a 84-year-old female with a history of CHF, anemia, and a pacemaker, presenting for a routine follow-up and evaluation of new-onset fatigue, dyspnea, and palpitations. Gudelia reports a 3-week history of significant fatigue, [...] has not reported these symptoms to her fermentation scientist, Dr. Bueno, or his restaurant assistant manager, whom she usually sees. She has a pacemaker and had an echocardiogram approximately 2 years ago. She was hospitalized 3-4 months ago for what she believes was CHF, but she is unsure of the exact diagnosis. She states that she was discharged with oxygen but returned it without telling cardiology. Gudelia also mentions cloudy urine and suspects a [...] intraventricular block - Advised patient to contact fermentation scientist Dr. Bueno's office today to report symptoms [...] CMP today, continue with Losartan Carlos House APRN.YARN DUMPER RTO in 1 month. I spent a total of 51 minutes on the date of the service which included preparing to see the patient, [id number] patient care, completing clinical documentation, obtaining and/or reviewing separately obtained history, performing a medically appropriate examination, counseling and educating the patient/family/careg iver, and ordering medications, tests, or procedures. This note was partly generated using [employer] (more content not included)... Normal [facility] Comprehensive metabolic 2000 panelon 02-06-2025 Albumin [Mass/Vol] 4.0 g/dL Normal 3.9-4.9 [facility] Comment on above: Order Comment: Speci men Type: BLOOD SPECIMENOrdering Facility: [facility] Address: [address] [place] [address] Performed By: #### 3 3762-6, LIPEDGAR, 38286-8, 6-3 ####[facility] [id number] [place] [address] [place] ALP [Catalytic activity/Vol] 132 U/L High 34-123 [facility] Comment on above: Order Comment: Speci men Type: BLOOD SPECIMENOrdering Facility: [facility] Address: [address] [place] [address] Performed By: #### 3 3762-6, LIPNF, 42854-1, 6-3 ####[facility] LABCLIA [id number] [place] [address] [place] ALT [Catalytic activity/Vol] 15 U/L Normal 7-38 [facility] Comment on above: Order Comment: Speci men Type: BLOOD SPECIMENOrdering Facility: [facility] Address: [address] [place], [place] [address] Performed By: #### 3 3762-6, LIPNF, 16434-9, 6-3 ####[facility] LABCLIA [id number] [address] [address] [place] Anion gap [Moles/Vol] 11 mmol/L Normal 8-15 [facility] Comment on above: Order Comment: Speci men Type: BLOOD SPECIMENOrdering Facility: [facility] Address: [address] [place], [place] [address] Performed By: #### 3 3762-6, LIPNF, 96570-6, 6-3 ####[facility] LABCLIA [id number] [place] [address] [place] AST [Catalytic activity/Vol] 22 U/L Normal 13-35 [facility] Comment on above: Order Comment: Speci men Type: BLOOD SPECIMENOrdering Facility: [facility] Address: [address] [place] [address] Performed By: #### 3 3762-6, LIPNF, 92350-0, 6-3 ####[facility] LABCLIA [id number] [place] [address] [place] Bilirubin [Mass/Vol] 0.6 mg/dL Normal 0.2-1.3 [facility] Comment on above: Order Comment: Speci men Type: BLOOD SPECIMENOrdering Facility: [facility] Address: [address] [place], [place] [address] Performed By: #### 3 3762-6, LIPNF, 38249-0, 6-3 ####[facility] LABCLIA [id number] [address] [address] [place] Calcium [Mass/Vol] 9.4 mg/dL Normal 8.5-10.2 [facility] Comment on above: Order Comment: Speci men Type: BLOOD SPECIMENOrdering Facility: [facility] Address: [address] [place], [place] [address] Performed By: #### 3 3762-6, LIPNF, 84210-2, 3016-3 ####[facility] LABCLIA [id number] [address] [address] [place] Chloride [Moles/Vol] 101 mmol/L Normal 98-107 [facility] Comment on above: Order Comment: Speci men Type: BLOOD SPECIMENOrdering Facility: [facility] Address: [address] [place], [place] [address] Performed By: #### 3 3762-6, LIPNF, 02599-4, 6-3 ####[facility] LABCLIA [id number] [place] [address] [place] CO2 [Moles/Vol] 21 mmol/L Low 22-30 [facility] Comment on above: Order Comment: Speci men Type: BLOOD SPECIMENOrdering Facility: [facility] Address: [address] [place] [address] Performed By: #### 3 3762-6, LIPNF, 10856-3, 6-3 ####[facility] LABCLIA [id number] [place] [address] [place] Creatinine [Mass/Vol] 1.34 mg/dL High 0.58-0.96 [facility] Comment on above: Order Comment: Speci men Type: BLOOD SPECIMENOrdering Facility: [facility] Address: [address] [place], [place] [address] Performed By: #### 3 3762-6, LIPNF, 36991-8, 3016-3 ####[facility] LABCLIA [id number] [place] [id number] [place] eGFRcr SerPlBld CKD-EPI 2021 39 mL/min/1.73m??? Low >=60 [facility] Comment on above: Order Comment: Speci men Type: BLOOD SPECIMENOrdering Facility: [facility] Address: [address] [place] [address] Result Comment: Martha mated Glomerular Filtration Rate [...] accurately reflect actual GFR. Performed By: #### 3 3762-6, LIPNF, 79610-5, 3015-3 ####[facility] LABCLIA [id number] [place] [address] [place] Glucose [Mass/Vol] 102 mg/dL High 74-99 [facility] Comment on above: Order Comment: Speci men Type: BLOOD SPECIMENOrdering Facility: [facility] Address: [address] [place] [address] Result Comment: The [place] Diabetes Association (ADA) provides guidance for cutoff [...] Standards of Medical Care in Diabetes 2016, [place] Diabetes Association. Diabetes Care. 2016.39(Suppl 1). Performed By: #### 3 3762-6, LIPNF, 93499-7, 3015-3 ####[facility] LABIA [id number] [place] [address] [place] Potassium [Moles/Vol] 4.3 mmol/L Normal 3.7-5.1 [facility] Comment on above: Order Comment: Speci men Type: BLOOD SPECIMENOrdering Facility: [facility] Address: [address] [place] [address] Performed By: #### 3 3762-6, LIPNF, 25660-9, 3016-3 ####[facility] LABCLIA [id number] [place] [address] [place] Protein [Mass/Vol] 8.7 g/dL High 6.3-8.0 [facility] Comment on above: Order Comment: Speci men Type: BLOOD SPECIMENOrdering Facility: [facility] Address: [address] [place] [address] Performed By: #### 3 3762-6, LIPNF, 74841-5, 3016-3 ####[facility] LABIA [id number] [place] [address] [place] Sodium [Moles/Vol] 133 mmol/L Low 136-144 [facility] Comment on above: Order Comment: Speci men Type: BLOOD SPECIMENOrdering Facility: [facility] Address: [address] [place] [address] Performed By: #### 3 3762-6, LIPNF, 54983-0, 3016-3 ####[facility] LABIA [id number] [place] [address] [place] Urea nitrogen [Mass/Vol] 21 mg/dL Normal 7-21 [facility] Comment on above: Order Comment: Speci men Type: BLOOD SPECIMENOrdering Facility: [facility] Address: [address] [place] [address] Performed By: #### 3 3762-6, LIPNF, 11273-2, 3016-3 ####[facility] LABIA [id number] [place] [address] [place] [id number] 02-06-2025 ECG01 Ventricular Rate : 80 BPM QRS Duration : 170 ms Q-T Interval : 468 ms QTC Calculation(Bazett) : 539 ms Calculated R [place] : -86 degrees Calculated T [place] : 98 degrees Ventricular Pacing with underlying AF MINIMAL VOLTAGE CRITERIA FOR LVH, MAY BE NORMAL VARIANT ( Tayo product ) Confirmed by MD BATRES QARAB ([id number]) on 02/08/2025 11:06:15 AM NAME : GUDELIA GUPTA PID : [id number] : 1940 Gender : Female Race : ORD : Procedure Date : Feb 06 2025 11:23:13 Edit Date : Feb 08 2025 11:06:19 Diagnosis: Ventricular Pacing with underlying AF MINIMAL VOLTAGE CRITERIA FOR LVH, MAY BE NORMAL VARIANT ( Tayo product ) Confirmed by MD BATRES QARAB ([id number]) on 02/08/2025 11:06:15 AM Test Reason : Location : 136 : [facility] Overread By : MD BATRES QARAB Edited By : MD BATRES QARAB Referred By : CARLOS HOUSE Acquired by : ARMANDO GOVEA, Ayanna [facility] HbA1c (Bld)on 02-06-2025 Average glucose Estimated from glycated hemoglobin (Bld) [Mass/Vol] 148 mg/dL Normal [facility] Comment on above: Order Comment: Demetrio lorenzo Type: BLOOD SPECIMENOrdering Facility: [facility] Address: [address] [place] [address] Result Comment: eAG: (Estimated average glucose) is a calculated value from HgbA1c and is retail sales representative of the average blood glucose level in the last 2-3 month period. Performed By: #### 5 5454-3 ####[facility] LABCLIA [id number] [place] [address] [place] HbA1c (Bld) [Mass fraction] 6.8 % High 4.3-5.6 [facility] Comment on above: Order Comment: Demetrio lorenzo Type: BLOOD SPECIMENOrdering Facility: [facility] Address: [address] [place] [address] Result Comment: [place] Diabetes Association guidelines indicate that patients with HgbA1c in the range 5.7-6.4% are at increased risk for development of diabetes, and intervention by lifestyle modification may be beneficial. HgbA1c greater or equal to 6.5% is considered diagnostic of diabetes. Performed By: #### 5 5454-3 ####[facility] LABCLIA [id number] [place] [id number] [place] LIPID PANEL, NONFASTINGon Cholesterol [Mass/Vol] 95 mg/dL Normal <200 [facility] Comment on above: Order Comment: Speci men Type: BLOOD SPECIMENOrdering Facility: [facility] Address: [address] [place] [address] Result Comment: <200 mg/dL, Desirable 200-239 mg/dL, Borderline high >239 mg/dL, High Performed By: #### 3 3762-6, LIPNF, 20833-4, 6-3 ####[facility] LABCLIA [id number] [place] [address] [place] HDL CHOLESTEROL, NF 32 mg/dL Low >39 [facility] Comment on above: Order Comment: Speci men Type: BLOOD SPECIMENOrdering Facility: [facility] Address: [address] [place] [address] Result Comment: 40-5 9 mg/dL, Acceptable >59 mg/dL, High: Negative risk factor for coronary heart disease <40 mg/dL, Low: Positive risk factor for coronary heart disease Performed By: #### 3 3762-6, LIPNF, 79617-8, 3016-3 ####[facility] [facility] [id number] [address] [place] LDL CHOLESTEROL CALCULATED, NF 50 mg/dL Normal <100 [facility] Comment on above: Order Comment: Speci men Type: BLOOD SPECIMENOrdering Facility: [facility] Address: [address] [place] [address] Result Comment: <100 mg/dL, Optimal 100-129 mg/dL, Near optimal/above optimal 130-159 mg/dL, Borderline high 160-189 mg/dL, High >189 mg/dL, Very high Secondary prevention optimal LDL Cholesterol levels are recommended to be <70 mg/dL LDL cholesterol is calculated using the Singh-NIH equation. Performed By: #### 3 3762-6, LIPNF, 80126-6, 3016-3 ####[facility] [id number] [address] [address] [place] LDL/HDL RATIO, NF 1.56 mg/dL Normal <2.54 [facility] Comment on above: Order Comment: Speci men Type: BLOOD SPECIMENOrdering Facility: [facility] Address: [address] [place] [address] Result Comment: Rivka moreno: 1. National Cholesterol Education Program ATP III Guideline At-A-Glance Quick Desk Reference: National Heart, Lung, and Blood [place]. National Institutes of Health. 2001: NIH Publication No. 01-3305. 2. An International Atherosclerosis Society position paper: global recommendations for the management of dyslipidemia: executive summary, Atherosclerosis. 2014: 232(2):410-413. Performed By: #### 3 3762-6, LIPNF, 80482-7, 3015-3 ####[facility] [id number] [address] [place] [facility] NON HDL CHOL, NF 63 mg/dL Normal <130 [facility] Comment on above: Order Comment: Speci men Type: BLOOD SPECIMENOrdering Facility: [facility] Address: [address] [place] [address] Result Comment: <130 mg/dL, Optimal 130-159 mg/dL, Near optimal/above optimal 160-189 mg/dL, Borderline high 190-219 mg/dL, High >219 mg/dL, Very high Secondary prevention optimal non HDL Cholesterol levels are recommended to be <100 mg/dL Performed By: #### 3 3762-6, LIPNF, 91842-7, 6-3 ####[facility] [id number] [place] [address] [place] [facility] T CHOL/HDL RATIO NF 2.97 mg/dL Normal <5.10 [facility] Comment on above: Order Comment: Speci men Type: BLOOD SPECIMENOrdering Facility: [facility] Address: [address] [place] [address] Performed By: #### 3 3762-6, LIPNF, 49651-3, 6-3 ####[facility] [id number] [place] [address] [place] TRIGLYCERIDES, NF 57 mg/dL Normal <150 [facility] Comment on above: Order Comment: Speci men Type: BLOOD SPECIMENOrdering Facility: [facility] Address: [address] [place] [address] Result Comment: <150 mg/dL, Normal 150-199 mg/dL, Borderline high 200-499 mg/dL, High >499 mg/dL, Very high Performed By: #### 3 3762-6, LIPNF, 88006-3, 6-3 ####[facility] [id number] [place] [address] [place] VLDL CHOLESTEROL, NF 8 mg/dL Normal <30 [facility] Comment on above: Order Comment: Speci men Type: BLOOD SPECIMENOrdering Facility: [facility] Address: [address] [place] [address] Performed By: #### 3 3762-6, LIPNF, 54312-0, 6-3 ####[facility] [id number] [address] [place] NT-proBNP SerPl-ncon 02-06 Natriuretic peptide.B prohormone N-Terminal [Mass/Vol] 1379 pg/mL High <450 [facility] Comment on above: Order Comment: Speci men Type: BLOOD SPECIMENOrdering Facility: [facility] Address: [address] [place] [address] Performed By: #### 3 3762-6, LIPNF, 05243-5, 6-3 ####[facility] [id number] [place] [address] [place] TSH SerPl-aCncon 02-06-2025 TSH Qn 2.240 m[IU]/L Normal 0.270-4.200 [facility] Comment on above: Order Comment: Speci men Type: BLOOD SPECIMENOrdering Facility: [facility] Address: [address] [place] [address] [place] [address] Performed By: #### 3 3762-6, LIPNF, 49832-5, 3016-3 ####[facility] [id number] [facility] [address] [place] XR CHEST 2V [...] position. Lungs and pleura: No consolidation. Bibasilar atelectasis/scarring . No lung mass. No pleural effusion. No pneumothorax. Cardiomediastinal silhouette: Mildly enlarged cardiomediastinal silhouette. Bones and soft tissues: Patient has had vertebral plasty of T8. Stable compression of T12. IMPRESSION: No acute radiographic abnormality. Job Checker: ARCHIE Transcribe Date/Time: Feb 06 2025 1:04P Dictated by : CINTHYA PERAZA MD This examination was interpreted and the report reviewed and electronically signed by: CINTHYA PERAZA MD on Feb 06 2025 1:06PM EST [id number] CN Normal [facility] XR Chest PA and Lateralon IMPRESSION: No acute radiographic abnormality. Job Checker: ARCHIE Transcribe Date/Time: Feb 06 2025 1:04P [...] position. Lungs and pleura: No consolidation. Bibasilar atelectasis/scarring . No lung mass. No pleural effusion. No pneumothorax. Cardiomediastinal silhouette: Mildly enlarged cardiomediastinal silhouette. Bones and soft tissues: Patient has had vertebral plasty of T8. Stable compression of T12. DIVISION OF RADIOLOGY Provider, [facility] - 02/06/2025 * * *Final Report* * [...] position. Lungs and pleura: No consolidation. Bibasilar atelectasis/scarring . No lung mass. No pleural effusion. No pneumothorax. Cardiomediastinal silhouette: Mildly enlarged cardiomediastinal silhouette. Bones and soft tissues: Patient has had vertebral plasty of T8. Stable compression of T12. IMPRESSION IMPRESSION: No acute radiographic abnormality. Job Checker: ARCHIE Transcribe Date/Time: Feb 06 2025 1:04P Dictated by : CINTHYA PERAZA MD This examination was interpreted and the report reviewed and electronically signed by: CINTHYA PERAZA MD on Feb 06 2025 1:06PM EST [facility] Radiology Study observation (narrative) Osmar garcia [facility] XR Chest PA and LateralOrder ed By: [facility]cf Provider on 02-06-2025 [facility] Cardiology Visit Reporton Cardiology Visit Report [facility] 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 [...] no idea what medications she is taking [facility] Medical History Coronary artery disease Iron deficiency anemia History of non-ST elevation myocardial infarction (NSTEMI) (2013) Longstanding persistent atrial fibrillation Essential (primary) hypertension Anxiety Hypothyroidism Hyperlipidemia Secondary pulmonary arterial hypertension Atherosclerosis of coronary artery of [place] heart without angina pectoris Paroxysmal atrial fibrillation [...] patient quit smokin (more content not included)... [facility] Office Visit (CELSOPWS) JULIÁN KEENEAN ([id number]) 1940 F Date Time Provider Department 08/12/24 1:00 PM [facility] During your visit today, we recorded the following information about you: Pulse Respiration Blood pressure Weight 80/minute 18/minute 128/86 85.7 kg [facility] APRN.CNP 08/12/2024 1:27 PM Signed Gudelia Gupta is a 84 year old female [...] history review Reviewed and updated problem list, medical/surgical/fam kwesi/social history, medications, and allergies. Opioid use review [...] BMI 30.51 kg/m? Vision Screening: Follows with optometry/ophthalmol ogy Assessment/Plan Medicare annual wellness visit, subsequent (Z00.00) - Counseled on healthy diet and regular exercise - Fall avoidance information provided - Personalized prevention plan provided [facility] APRN.YARN DUMPER Additional Concerns The following concerns were also [...] extremity edema. No skin discoloration. Latest Ref Rn 08/08/2024 Protein, Total 6.3 - 8.0 g/dL [...] >=60 mL/min/1.73 (more content not included)... Normal [facility] CBC panel Auto (Bld)on 08-08 Erythrocyte distribution width (RBC) [Ratio] 15.6 % High 11.5-15.0 [facility] Comment on above: Order Comment: Speci men Type: BLOOD SPECIMENOrdering Facility: [facility] Address: [address] [place] [address] Performed By: #### 5 8410-2 ####[facility] LABIA [id number] [place] [address] [place] Hematocrit (Bld) [Volume fraction] 38.7 % Normal 36.0-46.0 [facility] Comment on above: Order Comment: Speci men Type: BLOOD SPECIMENOrdering Facility: [facility] Address: [address] [place] [address] Performed By: #### 5 8410-2 ####[facility] [id number] [place] [address] [place] Hemoglobin (Bld) [Mass/Vol] 11.8 g/dL Normal 11.5-15.5 [facility] Comment on above: Order Comment: Speci men Type: BLOOD SPECIMENOrdering Facility: [facility] Address: [address] [place] [address] Performed By: #### 5 8410-2 ####[facility] LABIA [id number] [place] [address] [place] MCH (RBC) [Entitic mass] 28.6 pg Normal 26.0-34.0 [facility] Comment on above: Order Comment: Speci men Type: BLOOD SPECIMENOrdering Facility: [facility] Address: [address] [place] [address] Performed By: #### 5 8410-2 ####[facility] LABIA [id number] [place] [id number] [address] [place] MCHC (RBC) [Mass/Vol] 30.5 g/dL Normal 30.5-36.0 [facility] Comment on above: Order Comment: Speci men Type: BLOOD SPECIMENOrdering Facility: [facility] Address: [address] [place] [address] Performed By: #### 5 8410-2 ####[facility]CLIA [id number] [place] [address] [place] MCV (RBC) [Entitic vol] 93.9 fL Normal 80.0-100.[address] [facility] Comment on above: Order Comment: Speci men Type: BLOOD SPECIMENOrdering Facility: [facility] Address: [address] [place] [address] Performed By: #### 5 8410-2 ####[facility] [id number] [place] [address] [place] Nucleated RBC (Bld) [#/Vol] 10*3/uL Normal <0.01 [facility] Comment on above: Order Comment: Speci men Type: BLOOD SPECIMENOrdering Facility: [facility] Address: [address] [place] [address] Performed By: #### 5 8410-2 ####[facility] [id number] [place] [address] [place] Platelet mean volume (Bld) [Entitic vol] 10.5 fL Normal 9.0-12.7 [facility] Comment on above: Order Comment: Speci men Type: BLOOD SPECIMENOrdering Facility: [facility] Address: [address] [place] [address] Performed By: #### 5 8410-2 ####[facility] [id number] [place] [address] [place] Platelets (Bld) [#/Vol] 321 10*3/uL Normal 150-400 [facility] Comment on above: Order Comment: Speci men Type: BLOOD SPECIMENOrdering Facility: [facility] Address: [address] [place] [address] Performed By: #### 5 8410-2 ####[facility] [id number] [place] [address] [place] RBC (Bld) [#/Vol] 4.12 10*6/uL Normal 3.90-5.20 [facility] Comment on above: Order Comment: Speci men Type: BLOOD SPECIMENOrdering Facility: [facility] Address: [address] [place] [address] Performed By: #### 5 8410-2 ####[facility] [id number] [place] [address] [place] WBC (Bld) [#/Vol] 7.25 10*3/uL Normal 3.70-11.00 [facility] Comment on above: Order Comment: Speci men Type: BLOOD SPECIMENOrdering Facility: [facility] Address: [address] [place] [address] Performed By: #### 5 8410-2 ####[facility] [id number] [place] [address] [place] Comprehensive metabolic 2000 panelon 08-08-2024 Albumin [Mass/Vol] 4.0 g/dL Normal 3.9-4.9 [facility] Comment on above: Order Comment: Speci men Type: BLOOD SPECIMENOrdering Facility: [facility] Address: [address] [place] [address] Performed By: #### 2 4323-8, 98155-2, 3016-3 ####[facility] [id number] [place] [address] [place] ALP [Catalytic activity/Vol] 150 U/L High 34-123 [facility] Comment on above: Order Comment: Speci men Type: BLOOD SPECIMENOrdering Facility: [facility] Address: [address] [place] [address] Performed By: #### 2 4323-8, 71049-6, 6-3 ####[facility]CLIA [id number] [address] [address] [place] ALT [Catalytic activity/Vol] 11 U/L Normal 7-38 [facility] Comment on above: Order Comment: Speci men Type: BLOOD SPECIMENOrdering Facility: [facility] Address: [address] [place] [address] Performed By: #### 2 4323-8, 83987-9, 3015-3 ####[facility] [id number] [place] [address] [place] Anion gap [Moles/Vol] 13 mmol/L Normal 8-15 [facility] Comment on above: Order Comment: Speci men Type: BLOOD SPECIMENOrdering Facility: [facility] Address: [address] [place] [address] Performed By: #### 2 4323-8, 33560-2, 3015-3 ####[facility] [id number] [place] [address] [place] AST [Catalytic activity/Vol] 18 U/L Normal 13-35 [facility] Comment on above: Order Comment: Speci men Type: BLOOD SPECIMENOrdering Facility: [facility] Address: [address] [place], [place] [address] Performed By: #### 2 4323-8, 91862-9, 3015-3 ####[facility] [id number] [address] [address] [place] Bilirubin [Mass/Vol] 0.6 mg/dL Normal 0.2-1.3 [facility] Comment on above: Order Comment: Speci men Type: BLOOD SPECIMENOrdering Facility: [facility] Address: [address] [place], [place] [address] Performed By: #### 2 4323-8, 85234-0, 3016-3 ####[facility] [id number] [facility] [address] [address] [place] Calcium [Mass/Vol] 9.6 mg/dL Normal 8.5-10.2 [facility] Comment on above: Order Comment: Speci men Type: BLOOD SPECIMENOrdering Facility: [facility] Address: [address] [place] [address] Performed By: #### 2 4323-8, 06154-5, 3015-3 ####[facility] [id number] [address] [address] [place] Chloride [Moles/Vol] 95 mmol/L Low 98-107 [facility] Comment on above: Order Comment: Speci men Type: BLOOD SPECIMENOrdering Facility: [facility] Address: [address] [place] [address] Performed By: #### 2 4323-8, 85578-9, 3015-3 ####[facility] [id number] [place] [address] [place] CO2 [Moles/Vol] 24 mmol/L Normal 22-30 [facility] Comment on above: Order Comment: Speci men Type: BLOOD SPECIMENOrdering Facility: [facility] Address: [address] [place], [place] [address] Performed By: #### 2 4323-8, 16494-3, 3 ####[facility] [id number] [facility] [address] [address] [place] Creatinine [Mass/Vol] 1.20 mg/dL High 0.58-0.96 [facility] Comment on above: Order Comment: Speci men Type: BLOOD SPECIMENOrdering Facility: [facility] Address: [address] [place], [place] [address] Performed By: #### 2 4323-8, 85533-9, 3015-3 ####[facility] [id number] [address] [place] Creatinine and Glomerular filtration rate.predicted panel (S/P/Bld) 44 mL/min/1.73m??? Low >=60 [facility] Comment on above: Order Comment: Demetrio lorenzo Type: BLOOD SPECIMENOrdering Facility: [facility] Address: [address] [place] [address] Result Comment: Martha mated Glomerular Filtration Rate [...] actual GFR. Performed By: #### 2 4323-8, 09602-3, 3016-3 ####[facility] [id number] [place] [address] [place] Glucose [Mass/Vol] 99 mg/dL Normal 74-99 [facility] Comment on above: Order Comment: Demetrio lorenzo Type: BLOOD SPECIMENOrdering Facility: [facility] Address: [address] [place] [address] Result Comment: The [place] Diabetes Association (ADA) provides guidance for cutoff [...] Standards of Medical Care in Diabetes 2016, [place] Diabetes Association. Diabetes Care. 2016.39(Suppl 1). Performed By: #### 2 4323-8, 04590-1, 3016-3 ####[facility] [id number] [place] [address] [place] Potassium [Moles/Vol] 4.0 mmol/L Normal 3.7-5.1 [facility] Comment on above: Order Comment: Speci men Type: BLOOD SPECIMENOrdering Facility: [facility] Address: [address] [place] [address] Performed By: #### 2 4323-8, 68223-7, 3016-3 ####[facility] [id number] [place] [address] [place] Protein [Mass/Vol] 8.4 g/dL High 6.3-8.0 [facility] Comment on above: Order Comment: Speci men Type: BLOOD SPECIMENOrdering Facility: [facility] Address: [address] [place] [address] Performed By: #### 2 4323-8, 99878-0, 3015-3 ####[facility] [id number] [place] [address] [place] Sodium [Moles/Vol] 132 mmol/L Low 136-144 [facility] Comment on above: Order Comment: Speci men Type: BLOOD SPECIMENOrdering Facility: [facility] Address: [address] [place] [address] Performed By: #### 2 4323-8, 89181-5, 3015-3 ####[facility] [id number] [place] [address] [place] Urea nitrogen [Mass/Vol] 18 mg/dL Normal 7-21 [facility] Comment on above: Order Comment: Speci men Type: BLOOD SPECIMENOrdering Facility: [facility] Address: [address] [place] [address] Performed By: #### 2 4323-8, 11835-0, 6-3 ####[facility] [id number] [place] [id number] [place] HbA1c (Bld)on 08-08-2024 Average glucose Estimated from glycated hemoglobin (Bld) [Mass/Vol] 140 mg/dL Normal [facility] Comment on above: Order Comment: Demetrio lorenzo Type: BLOOD SPECIMENOrdering Facility: [facility] Address: [address] [place] [address] Result Comment: eAG: (Estimated average glucose) is a calculated value from HgbA1c and is retail sales representative of the average blood glucose level in the last 2-3 month period. Performed By: #### 5 5454-3 ####[facility]CL[facility] [id number] [place] [address] [place] HbA1c (Bld) [Mass fraction] 6.5 % High 4.3-5.6 [facility] Comment on above: Order Comment: Deemtrio lorenzo Type: BLOOD SPECIMENOrdering Facility: [facility] Address: [address] [place] [address] Result Comment: [place] Diabetes Association guidelines indicate that patients with HgbA1c in the range 5.7-6.4% are at increased risk for development of diabetes, and intervention by lifestyle modification may be beneficial. HgbA1c greater or equal to 6.5% is considered diagnostic of diabetes. Performed By: #### 5 5454-3 ####[facility]IA [id number] [place] [address] [place] Lipid 1996 panelon Cholesterol [Mass/Vol] 140 mg/dL Normal <200 [facility] Comment on above: Order Comment: Demetrio lorenzo Type: BLOOD SPECIMENOrdering Facility: [facility] Address: [address] [place] [address] Result Comment: <200 mg/dL, Desirable 200-239 mg/dL, Borderline high >239 mg/dL, High Performed By: #### 2 4323-8, 34110-1, 3016-3 ####[facility] [id number] [place] [address] [place] Cholesterol in HDL [Mass/Vol] 35 mg/dL Low >39 [facility] Comment on above: Order Comment: Speci men Type: BLOOD SPECIMENOrdering Facility: [facility] Address: [address] [place] [address] Result Comment: 40-5 9 mg/dL, Acceptable >59 mg/dL, High: Negative risk factor for coronary heart disease <40 mg/dL, Low: Positive risk factor for coronary heart disease Performed By: #### 2 4323-8, 70092-0, 3016-3 ####[facility] [id number] [place] [address] [place] Cholesterol in LDL [Mass/Vol] 81 mg/dL Normal <100 [facility] Comment on above: Order Comment: Noheliai men Type: BLOOD SPECIMENOrdering Facility: [facility] Address: [address] [place] [address] Result Comment: <100 mg/dL, Optimal 100-129 mg/dL, Near optimal/above optimal 130-159 mg/dL, Borderline high 160-189 mg/dL, High >189 mg/dL, Very high Secondary prevention optimal LDL Cholesterol levels are recommended to be < 70 mg/dL Performed By: #### 2 4323-8, 68237-6, 3015-3 ####[facility] [id number] [address] [place] Cholesterol in LDL/Cholesterol in HDL [Mass ratio] 2.31 {ratio} Normal <2.54 [facility] Comment on above: Order Comment: Noheliai men Type: BLOOD SPECIMENOrdering Facility: [facility] Address: [address] [place] [address] Result Comment: Refe rence: 1. National Cholesterol Education Program ATP III Guideline At-A-Glance Quick Desk Reference: National Heart, Lung, and Blood [place]. National Institutes of Health. 2001: NIH Publication No. 01-3305. 2. An International Atherosclerosis Society position paper: global recommendations for the management of dyslipidemia: executive summary, Atherosclerosis. 2014: 232(2):410-413. Performed By: #### 2 4323-8, 59417-0, 3015-3 ####[facility] [id number] [address] [address] [place] Cholesterol in VLDL [Mass/Vol] 24 mg/dL Normal <30 [facility] Comment on above: Order Comment: Speci men Type: BLOOD SPECIMENOrdering Facility: [facility] Address: [address] [place], [place] [id number] Performed By: #### 2 4323-8, 46160-7, 3015-3 ####[facility] LABCLIA [id number] [address] [address] [place] Cholesterol non HDL [Mass/Vol] 105 mg/dL Normal <130 [facility] Comment on above: Order Comment: Speci men Type: BLOOD SPECIMENOrdering Facility: [facility] Address: [address] [place] [address] Result Comment: <130 mg/dL, Optimal 130-159 mg/dL, Near optimal/above optimal 160-189 mg/dL, Borderline high 190-219 mg/dL, High >219 mg/dL, Very high Secondary prevention optimal non HDL Cholesterol levels are recommended to be <100 mg/dL Performed By: #### 2 4323-8, 78429-2, 3015-3 ####[facility] LABCLIA [id number] [address] [address] [place] Cholesterol.total/Choles terol in HDL [Mass ratio] 4.00 {ratio} Normal <5.10 [facility] Comment on above: Order Comment: Speci men Type: BLOOD SPECIMENOrdering Facility: [facility] Address: [address] [place] [address] Performed By: #### 2 4323-8, 48934-3, 3015-3 ####[facility] LABIA [id number] [place] [id number] [place] FASTING TIME 12 hrs Normal [facility] Comment on above: Order Comment: Speci men Type: BLOOD SPECIMENOrdering Facility: [facility] Address: [address] [place] [address] Performed By: #### 2 4323-8, 88222-5, 6-3 ####[facility] LABCLIA [id number] [place] [address] [place] Triglyceride [Mass/Vol] 120 mg/dL Normal <[address] [facility] Comment on above: Order Comment: Speci men Type: BLOOD SPECIMENOrdering Facility: [facility] Address: [address] [place] [address] Result Comment: <150 mg/dL, Normal 150-199 mg/dL, Borderline high 200-499 mg/dL, High >499 mg/dL, Very high Performed By: #### 2 4323-8, 80858-1, 3015-3 ####[facility] LABCLIA [id number] [place] [address] [place] TSH SerPl-aCncon 08-08-2024 TSH Qn 3.330 m[IU]/L Normal 0.270-4.200 [facility] Comment on above: Order Comment: Speci men Type: BLOOD SPECIMENOrdering Facility: [facility] Address: [address] [place] [address] Performed By: #### 2 4323-8, 58099-9, 3 ####[facility] LABIA [id number] [address] [place] [facility] GUDEL[facility] GU[facility] ([id number]) 1940 F Date Time Provider Department 05/24/24 VICTOR M ROCHA [facility] During your visit today, we recorded the following information about you: Kandi Woody MA 05/24/2024 1:22 PM Signed Type of letter/form/fax request - Overnight Pulse Ox order Form received from fax on 1 floor and placed on MD desk (Dr. Rocha) for completion. Completed form needs to be faxed to [facility] at [phone]. [facility] requesting PCP sign order to complete an overnight pulse oximetry report on room air for pt. Route to [place] when form completed for processing Kandi Woody MA 05/24/2024 3:01 PM Signed Faxed. Kandi Woody MA Allergies As of Date: 05/24/2024 Noted Allergy Reaction POISON FANY 10/17/2005 SULFA (SULFONAMIDE ANTIBIOTICS) 10/17/2005 4 - Hives Date Reviewed: 04/06/2024 Reviewed by: Jasmina Ramos LPN - Fully Assessed Reason for Visit: Forms [783] Cmt: [employer]-request to do an Overnight pulse oximetry [...] 1 capsule by mouth once daily. - oxyCODONE-acetaminop hen (PERCOCET) 5-325 mg tablet TAKE 1 TO [...] eyes twice daily. 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* Essential hypertension, benign [I10] 08/13/2011 S/P angioplasty with stent 11/13/2012 Backache, unspecified [M54.9] 11/08/2013 GERD (gastroesophageal reflux disease) [K21.9] 10/03/2014 Paroxysmal atrial fibrillation (HCC) [I48.0] 09/18/2015 Pacemaker [Z95.0] 09/18/2015 Iron deficiency anemia [D50.9] 08/19/2016 Malabsorption of iron [K90.9] 08/19/2016 12/01/2016 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 Hypothyroidism [E03.9] 12/01/2016 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 Advised patient to call her fermentation scientist to go over her meds from them [...] 1 capsule by mouth once daily. - oxyCODONE-acetaminop hen (PERCOCET) 5-325 mg tablet TAKE 1 TO [...] eyes twice daily. 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 Normal [facility] CNPNon 05-13-2024 CNPN Telephone (FAMPWS) GUDELIA GUPTA ([id number]) 1940 F Date Time Provider Department 05/13/24 [facility] During your visit today, we recorded the following information about you: Cara Herring MA 05/13/2024 2:33 PM Signed Type of form: Stop Anticoagulant prior to to pain management procedure. [facility]. Pt takes Xarelto daily, asking to be off two days prior to procedure. Form received via fax When form is completed, Fax form to [phone] Form has been forwarded to Physician Desk: [...] Assessed Reason for Visit: Forms [913] Cmt: [facility] Prescriptions as of 2024 [...] 1 capsule by mouth once daily. - oxyCODONE-acetaminop hen (PERCOCET) 5-325 mg tablet TAKE 1 TO [...] eyes twice daily. 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* Essential hypertension, benign [I10] 08/13/2011 S/P angioplasty with stent 11/13/2012 Backache, unspecified [M54.9] 11/08/2013 GERD (gastroesophageal reflux disease) [K21.9] 10/03/2014 Paroxysmal atrial fibrillation (HCC) [I48.0] 09/18/2015 Pacemaker [Z95.0] 09/18/2015 Iron deficiency anemia [D50.9] 08/19/2016 Malabsorption of iron [K90.9] 08/19/2016 12/01/2016 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 Hypothyroidism [E03.9] 12/01/2016 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 Normal [facility] Pacemaker Checkon 04-18-2024 Pacemaker Check [facility] [address] [place] [address] Pacemaker Check Date of Service: 04/18/24 110 MR#: [id number] Acct: [id number] Name: GUDELIA GUPTA Rep #: [id number] : 1940 From: Marni Waldron Age/Sex: 83/F Location: [facility] [place] Status: Signed Billing Codes PM Device Codes: 15003 PM Dev Prog Eval, Dual Assessment and Plan Assessment and Plan (1) Paroxysmal atrial fibrillation: Status: Chronic Comment: AV node ablation 03/31/2016 (2) Presence of cardiac pacemaker: Status: Chronic Comment: PPM generator change on 04/11/2024. (3) Sick sinus syndrome: Status: Chronic 04/18/24 1106 Date Marni Guevara Signature: Date (if applicable) CC: Normal [facility] CNOVon 04-06-2024 CNOV Office Visit (FAMPWS) GUDELIA GUPTA ([id number]) 1940 F Date Time Provider Department 04/06/24 11:40 AM YOVANA PAINTER During your visit today, we recorded the following information about you: Pulse Respiration Blood pressure Weight 90/minute 16/minute 127/77 83.8 kg Yovana Painter APRN.CNP 04/06/2024 5:02 PM Signed This is a 83 year old female who presents today with: Patient presents with: Follow Up: Hosp follow up for CHF HISTORY OF PRESENT ILLNESS: Gudelia Gupta is a 83 year old female. Patient presents with: Follow Up: Hosp follow up for CHF HOSPITAL/ER FOLLOW UP: Reason for visit: SOB, oncologist called, pulse ox was 82% in office. Which facility: [facility] Date of visit: 03/25/2024- 4 Diagnosis: Acute exacerbation of CHF, heart failure, [...] Coronary atherosclerosis of unspecified type of vessel, [place] or graft Stent x 2010 Depressive disorder, [...] ROSALIO W TRY ATRIOGRM HP ALLERGIES Poison Fnay and Sulfa (Sulfonamide Antibiotics) MEDICATIONS Current Outpatient Medications Medication Sig potassium chloride ER (KLOR-CON) 20 mEq tablet Take two tablets by mouth once daily. omeprazole (PRILOSEC) 40 mg capsule Take 1 capsule by mouth once daily. oxyCODONE-acetaminop hen (PERCOCET) 5-325 mg tablet TAKE 1 TO [...] both eyes twice daily. blood sugar diagnostic (CardCash.com VERIO TEST STRIPS) test strip TEST BLOOD [...] every 4 hours as needed. No current facility-administere d medications for this visit. FAMIL (more content not included)... Normal [facility] 04-05-2024 [facility] Telephone (MRIQ) GUDELIA GUPTA ([id number]) 1940 F Date Time Provider Department 04/05/24 PHAN GARZA MRIQ During your visit today, we recorded the following information about you: Phan Garza, RT(R) 04/05/2024 12:35 PM Signed Helmaria esther, [...] of the radiologist with whom you spoke. [facility] Staff Rad: Neuro [phone] The potential risks of the MRI exam [...] longer wanted, please cancel the order in [facility]. Thank You, MR Imaging Education / MRI Safety Team Elizabet Baker DO 04/05/2024 12:57 PM Signed Sorry. [...] rescheduled. (Per Care Everywhere, patient was in [facility] as of 04/11.) Belle Mehta LPN 04/13/2024 4:43 PM Signed No, patient does not need to be contacted to reschedule. Please see phone note from 04/01/2024. Patient has cancelled all testing/appointments with this office by choice. Belle Fajardo LPN Allergies As of Date: 04/05/2024 Noted Allergy Reaction POISON FANY 10/17/2005 SULFA (SULFONAMIDE ANTIBIOTICS) 10/17/2005 4 - Hives Date Reviewed: 04/01/2024 Reviewed by: Elizabet Baker DO - Fully Assessed Reason for Visit: Radiology MRI [1487] Prescriptions as of 04/13/2024 - losartan (COZAAR) 100 mg tablet Take 100 mg by mouth once daily. - potassium chloride ER (KLOR-CON) 20 mEq tablet Take two tablets by mouth once daily. - omeprazole (PRILOSEC) 40 mg capsule Take 1 capsule by mouth once daily. - oxyCODONE-acetaminop hen (PERCOCET) 5-325 mg tablet TAKE 1 TO [...] eyes twice daily. - blood sugar diagnostic (CardCash.com VERIO TEST STRIPS) test strip TEST BLOOD [...] general m (more content not included)... 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 HPI: The patient is an 83 year-old female with history of arrhythmia, status post pacemaker and radiofrequency ablation. Patient had been on Xarelto for atrial fibrillation since 2014. She was seen by her fermentation scientist Dr. Root for increased fatigue and was [...] taking aspirin along with Xarelto. Has h/o IA (PCI with stents), atrial fibrillation (on rivaroxaban), [...] Admitted for CHF. Diuresed. Reviewed electronic record [facility]. Breathing much better. PMH, medications and allergies [...] Review (MPA) Reviewed by Yong Altamirano MD [place] Free, Serum 3.3 - 19.4 mg/L 70.4 [...] were copi (more content not included)... Normal [facility] CNPNon 04-01-2024 CNPN Telephone (BERKLEY) GUDELIA GUPTA ([id number]) 1940 F Date Time Provider Department 04/01/24 ELIZABET BAKER During your visit today, we recorded the following information about you: Shara Bailey 04/01/2024 9:28 AM Signed Check out comments: [...] scan. She did not want to reschedule. Elizabet Baker DO 04/05/2024 5:06 PM Signed Would [...] 04/06/2024 3:10 PM Signed Okay. Thank you. Elizabet Baker DO Allergies As of Date: 04/01/2024 Noted Allergy Reaction POISON FANY 10/17/2005 SULFA (SULFONAMIDE ANTIBIOTICS) 10/17/2005 4 - Hives Date Reviewed: 04/01/2024 Reviewed by: Elizabet Baker DO - Fully Assessed Reason for Visit: 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 [Other] Prescriptions as of 04/06/2024 - losartan (COZAAR) 100 mg tablet Take 100 mg by mouth once daily. - potassium chloride ER (KLOR-CON) 20 mEq tablet Take two tablets by mouth once daily. - omeprazole (PRILOSEC) 40 mg capsule Take 1 capsule by mouth once daily. 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* Essential hypertension, benign [I10] 08/13/2011 S/P angioplasty with stent 11/13/2012 Backache, unspecified [M54.9] 11/08/2013 GERD (gastroesophageal reflux disease) [K21.9] 10/03/2014 Paroxysmal atrial fibrillation (HCC) [I48.0] 09/18/2015 Pacemaker [Z95.0] 09/18/2015 Iron deficiency anemia [D50.9] 08/19/2016 Malabsorption of iron [K90.9] 08/19/2016 12/01/2016 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 Hypothyroidism [E03.9] 12/01/2016 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 Normal [facility] CNPNon 03-31-2024 CNPN Telephone (INTMWS) GUDELIA GUPTA ([id number]) 1940 F Date Time Provider Department 03/31/24 VICTOR M ROCHA INTMWS During your visit today, we recorded the following information about you: Gisselle Banda LPN 03/31/2024 11:37 AM Signed Phan from [facility] calling: Yesterday HH initiated and started Today 03/31/24- patient wishes to d/c services. PATIENT's is there and is managing O2 well. Tomorrow 04/01/24- [facility] well be d/c'd Please review ADRIEL [...] 1 capsule by mouth once daily. 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* Essential hypertension, benign [I10] 08/13/2011 S/P angioplasty with stent 11/13/2012 Backache, unspecified [M54.9] 11/08/2013 GERD (gastroesophageal reflux disease) [K21.9] 10/03/2014 Paroxysmal atrial fibrillation (HCC) [I48.0] 09/18/2015 Pacemaker [Z95.0] 09/18/2015 Iron deficiency anemia [D50.9] 08/19/2016 Malabsorption of iron [K90.9] 08/19/2016 12/01/2016 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 Hypothyroidism [E03.9] 12/01/2016 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 Please call Fanny with reply: [phone] Thank you. Allergies As of Date: 03/30/2024 [...] 1 capsule by mouth once daily. - oxyCODONE-acetaminop hen (PERCOCET) 5-325 mg tablet TAKE 1 TO [...] eyes twice daily. 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* Essential hypertension, benign [I10] 08/13/2011 S/P angioplasty with stent 11/13/2012 Backache, unspecified [M54.9] 11/08/2013 GERD (gastroesophageal reflux disease) [K21.9] 10/03/2014 Paroxysmal atrial fibrillation (HCC) [I48.0] 09/18/2015 Pacemaker [Z95.0] 09/18/2015 Iron deficiency anemia [D50.9] 08/19/2016 Malabsorption of iron [K90.9] 08/19/2016 12/01/2016 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 Hypothyroidism [E03.9] 12/01/2016 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 Normal [facility] [place] 03-29-2024 [facility] Telephone (FAMPWS) GUDELIA GUPTA ([id number]) 1940 F Date Time Provider Department 03/29/24 VICTOR M ROCHA FAMPWS During your visit today, we recorded the following information about you: Rose Manuel LPN 03/29/2024 1:59 PM Signed Yovana with [facility] calls to report pt was getting discharged today from [facility]. Pt has orders for Nursing, PT, and [...] LPN 03/29/2024 2:01 PM Signed Yovana with [facility] HH notified. Verbalized understanding. Allergies As of Date: 03/29/2024 Noted Allergy Reaction POISON FANY 10/17/2005 SULFA (SULFONAMIDE ANTIBIOTICS) 10/17/2005 4 - Hives Date Reviewed: 02/26/2024 Reviewed by: Keila Li Ma, MA - Fully Assessed Reason for Visit: verbal orders [Other] Prescriptions as of 03/29/2024 - omeprazole (PRILOSEC) 40 mg capsule Take 1 capsule by mouth once daily. 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* Essential hypertension, benign [I10] 08/13/2011 S/P angioplasty with stent 11/13/2012 Backache, unspecified [M54.9] 11/08/2013 GERD (gastroesophageal reflux disease) [K21.9] 10/03/2014 Paroxysmal atrial fibrillation (HCC) [I48.0] 09/18/2015 Pacemaker [Z95.0] 09/18/2015 Iron deficiency anemia [D50.9] 08/19/2016 Malabsorption of iron [K90.9] 08/19/2016 12/01/2016 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 Hypothyroidism [E03.9] 12/01/2016 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 Please call Nitin to schedule Elizabet Baker DO 03/28/2024 12:47 PM Signed Simple visit would be fine. Can use a chemotherapy visit slot if needed. Shara Bailey 03/28/2024 2:13 PM Signed Left message for Nitin to return call. When she calls, please schedule an EST SIMPLE with Dr. Baker as instructed below. [facility] 03/29/2024 10:57 AM Signed Scheduled with Nitin Allergies As of Date: 03/28/2024 Noted Allergy Reaction POISON FANY 10/17/2005 SULFA (SULFONAMIDE ANTIBIOTICS) 10/17/2005 4 - Hives Date Reviewed: 02/26/2024 Reviewed by: Keila Li Ma, MA - Fully Assessed Reason for Visit: Appointment [186] Prescriptions as of 03/29/2024 - omeprazole (PRILOSEC) 40 mg capsule Take 1 capsule by mouth once daily. - oxyCODONE-acetaminop hen (PERCOCET) 5-325 mg tablet TAKE 1 TO [...] eyes twice daily. 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* Essential hypertension, benign [I10] 08/13/2011 S/P angioplasty with stent 11/13/2012 Backache, unspecified [M54.9] 11/08/2013 GERD (gastroesophageal reflux disease) [K21.9] 10/03/2014 Paroxysmal atrial fibrillation (HCC) [I48.0] 09/18/2015 Pacemaker [Z95.0] 09/18/2015 Iron deficiency anemia [D50.9] 08/19/2016 Malabsorption of iron [K90.9] 08/19/2016 12/01/2016 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 Hypothyroidism [E03.9] 12/01/2016 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 HPI: The patient is an 83 year-old female with history of arrhythmia, status post pacemaker and radiofrequency ablation. Patient had been on Xarelto for atrial fibrillation since 2014. She was seen by her fermentation scientist Dr. Root for increased fatigue and was [...] taking aspirin along with Xarelto. Has h/o IA (PCI with stents), atrial fibrillation (on rivaroxaban), [...] Review (MPA) Reviewed by Yong Altamirano MD [place] Free, Serum 3.3 - 19.4 mg/L 70.4 [...] she is hypoxemic. Plan: -To ED at [facility]. -Spoke to Dr. Dodge. Portions of this documentation were copied and pasted from previous office visit notes in order to provide a cohesive (more content not included)... Normal [facility] CNCOon 03-24-2024 CNCO Letter Text Normal [facility] CT WB SKULL TO KNEE WO IVCON on 03-12-2024 CT WB SKULL TO KNEE WO IVCON * * *Final Report* * * DATE OF EXAM: Mar 12 2024 4:08PM [facility] 2096 - CT WB SKULL TO KNEE WO [...] adrenal glands, and pancreas are unremarkable. No hydroureteronephrosi s. No dilated bowel. Colonic diverticulosis without diverticulitis. [...] (more content not included)... Invalid Interpretation Code [facility] UA DIP, URINE (POC)on 2023 BILIRUBIN UA (POCT) Negative Negative [facility] CLARITY UA (POCT) Cloudy [facility] COLOR UA (POCT) Dark yellow [facility] GLUCOSE UA (POCT) 500 mg/dL Abnormal Negative [facility] Hemoglobin Ql (U) Moderate Abnormal Negative [facility] Interpretation and review of laboratory results Abnormal [facility] KETONE UA (POCT) Negative Negative mg/dL [facility] LEUKOCYTES UA (POCT) Large Abnormal Negative [facility] NITRITE UA (POCT) Negative Negative [facility] PH UA (POCT) 6.5 4.5 - 8.0 [facility] Protein Ql (U) 30 mg/dL Abnormal Negative [facility] SPECIFIC GRAVITY UA (POCT) 1.015 1.005 - 1.030 [facility] UROBILINOGEN UA (POCT) 0.2 Olga l E.U./dL [facility] Location:[facility], [address] [place] [address], [place], [place], [id number] [place] [address] POINT OF CARE [facility] FERRITINon 11-18-2023 Ferritin [Mass/Vol] 18.9 ng/mL 14.7 - 2 05.1 ng/mL [facility] Ferritin [Mass/Vol]on 2023 Interpretation and review of laboratory results Normal [facility] Iron and Iron binding capaci ty panelon 11-18-2023 Interpretation and review of laboratory results Abnormal [facility] Iron [Mass/Vol] 19 ug/dL Low 41 - 186 ug/dL [facility] Iron binding capacity [Mass/Vol] 401 ug/dL High 232 - 386 ug/dL [facility] Iron/TIBC [Molar ratio] 4.7 % Low 15.0 - 57.0 % [facility] CBC W Auto Differential pane l (Bld)on 11-17-2023 Basophils (Bld) [#/Vol] 0.04 10*3/uL [facility] Basophils/100 WBC (Bld) 0.5 % [facility] Differential cell count method Nom (Bld) Auto [facility] Eosinophils (Bld) [#/Vol] 0.15 10*3/uL [facility] Eosinophils/100 WBC (Bld) 1.9 % [facility] Erythrocyte distribution width (RBC) [Ratio] 14.8 % 11.5 - 15.0 % [facility] Hematocrit (Bld) [Volume fraction] 32.0 % Low 36.0 - 46.0 % [facility] Hemoglobin (Bld) [Mass/Vol] 9.5 g/dL Low 11.5 - 15.5 g/dL [facility] Immature granulocytes (Bld) [#/Vol] 0.03 10*3/uL [facility] Immature granulocytes/100 WBC (Bld) 0.4 % [facility] Interpretation and review of laboratory results Abnormal [facility] Lymphocytes (Bld) [#/Vol] 1.49 10*3/uL [facility] Lymphocytes/100 WBC (Bld) 18.8 % [facility] MCH (RBC) [Entitic mass] 24.9 pg Low 26. 0 - 34.0 pg [facility] MCHC (RBC) [Mass/Vol] 29.7 g/dL Low 30.5 - 36.0 g/dL [facility] MCV (RBC) [Entitic vol] 84.0 fL 80.0 - 100.0 fL [facility] Monocytes (Bld) [#/Vol] 0.80 10*3/uL [facility] Monocytes/100 WBC (Bld) 10.1 % [facility] Neutrophils (Bld) [#/Vol] 5.40 10*3/uL [facility] Neutrophils/100 WBC (Bld) 68.3 % [facility] Nucleated RBC (Bld) [#/Vol] [facility] Nucleated RBC/100 WBC (Bld) [Ratio] 0.0 % /100 WBC [facility] Platelet mean volume (Bld) [Entitic vol] 9.2 fL 9.0 - 12.7 fL [facility] Platelets (Bld) [#/Vol] 367 10*3/uL [facility] RBC (Bld) [#/Vol] 3.81 10*6/uL Low 3.90 - 5.2 0 m/uL [facility] WBC (Bld) [#/Vol] 7.91 10*3/uL [facility] Basic metabolic 2000 panelon 06-22-2023 Anion gap [Moles/Vol] 12 mmol/L 9 - 18 mmol/L [facility] Calcium [Mass/Vol] 10.0 mg/dL 8.5 - 10. 2 mg/dL [facility] Chloride [Moles/Vol] 97 mmol/L 97 - 10 5 mmol/L [facility] CO2 [Moles/Vol] 24 mmol/L 22 - 30 mmol/L [facility] Creatinine [Mass/Vol] 1.49 mg/dL High 0.58 - 0.96 mg/dL [facility] Estimated Glomerular Filtration Rate 34 mL/min/1.73m Low >=60 mL/min/1.73m [facility] Glucose [Mass/Vol] 125 mg/dL High 74 - 99 mg/dL [facility] Potassium [Moles/Vol] 4.2 mmol/L 3.7 - 5.1 mmol/L [facility] Sodium [Moles/Vol] 133 mmol/L Low 136 - 144 mmol/L [facility] Urea nitrogen [Mass/Vol] 23 mg/dL High 7 - 21 mg/d L [facility] Basophil percentageOrdered B y: Lizet Bradshaw on 06-15-2023 Basophil percentage >100 SEEN /hpf 0-5 [facility] Comment on above: Microscopic field is [...] Mucus Ql (Urine sed) 0 SEEN /hpf [facility] Nitrite Test strip Ql (U)Ord ered By: [...] 06-15-2023 Urobilinogen Ql (U) Normal mg/dl Normal [facility] UA DIP, URINE (POC)on 2022 BILIRUBIN UA (POCT) Negative Negative [facility] CLARITY UA (POCT) Clear [facility] COLOR UA (POCT) Yellow [facility] GLUCOSE UA (POCT) >=1000 Abnormal Negative mg/dL [facility] Hemoglobin Ql (U) Large Abnormal Negative [facility] KETONE UA (POCT) Negative Negative mg/dL [facility] LEUKOCYTES UA (POCT) Small Abnormal Negative [facility] NITRITE UA (POCT) Positive Abnormal Negative [facility] PH UA (POCT) 6.0 4.5 - 8.0 [facility] Protein Ql (U) 100 mg/dL Abnormal Negative mg/dL [facility] SPECIFIC GRAVITY UA (POCT) 1.010 1.005 - 1.030 [facility] UROBILINOGEN UA (POCT) 0.2 E.U./dL Olga l E.U./dL [facility] Absolute lymphocyte countOrd ered By: Vinny Root on 02-17-2023 Lymphocytes Auto (Unsp spec) [#/Vol] 1.75 10*3/uL 0.83-4.[address] [facility] Basophil percentageOrdered B y: Woodson Ivett on 02-17-2023 Basophils/100 WBC (Bld) 0.5 % 0-1 [facility] Chloride [Moles/Vol] 102 mmol/L 98-107 [facility] Eosinophils/100 WBC (Bld) 2.5 % 0-[address] [facility] Glucose [Mass/Vol] 127 mg/dL 74-106 [facility] Comment on above: Fasting Glucose resu lt greater than or equal to 126 mg/dL suggests DIABETES MELLITUS per A.D.A. criteria. Neutrophils (Bld) [#/Vol] 4.6 10*3/uL 2.0-7.[address] [facility] Neutrophils/100 WBC (Bld) 62.5 % 47-[address] [facility] Potassium [Moles/Vol] 3.9 mmol/L 3.5-5.1 [facility] Sodium [Moles/Vol] 135 mmol/L 136-145 [facility] WBC (Bld) [#/Vol] 7.3 10*3/uL 4.4-11.0 [facility] Blood erythrocytes count (nu mber/volume)Ordered By: Vinny Root on 02-17-2023 RBC (Bld) [#/Vol] 4.28 10*6/uL 4.2-5.4 [facility] Blood hemoglobin measurement (mass/volume)Ordered By: Vinny Root on 02-17-2023 Hemoglobin (Bld) [Mass/Vol] 12.7 g/dL 12.0-15.[address] [facility] Blood lymphocytes/100 leukoc ytesOrdered By: Woodson Ivett on 02-17-2023 Lymphocytes/100 WBC (Bld) 23.8 % 19-[address] [facility] Blood monocytes/100 leukocyt esOrdered By: Vinny Ivett on 02-17-2023 Monocytes/100 WBC (Bld) 10.4 % 0-10 [facility] Blood platelet mean volumeOr dered By: Vinny Ivett on 02-17-2023 Platelet mean volume (Bld) [Entitic vol] 10.3 fL 6.2-12.[address] [facility] Determination of erythrocyte mean corpuscular volume (MCV)Ordered By: Vinny Root on 02-17-2023 MCV (RBC) [Entitic vol] 95.6 fL 81-99 [facility] Hematocrit Auto (Bld) [Volum e fraction]Ordered By: Vinny Root on 02-17-2023 Hematocrit (Bld) [Volume fraction] 40.9 % 37-[address] [facility] Laboratory - Chemistry and C hemistry - challengeOrdered By: [facility] on 02-17-2023 CO2 [Moles/Vol] 29.0 mmol/L 21.0-32.0 [...] 02-17-2023 MCHC (RBC) [Mass/Vol] 31.1 g/dL 32-36 [facility] No Panel InformationOrdered By: Vinny Root on 02-17-2023 Estimated GFR (MDRD) Amer 47 mL/min >[address] [facility] Comment on above: GFR Calc Estimated GFR (MDRD) Non-Af Amer 39 mL/min >[address] [facility] Comment on above: Non- GFR Calc Thyroid Stimulating Hormone (TSH) 2.83 uIU/mL 0.358-3.[address] [facility] Platelets bldOrdered By: Yinka Root on 02-17-2023 Platelets (Bld) [#/Vol] 298 10*3/uL 150-[address] [facility] Serum or plasma calcium fernando urement (mass/volume)Ordered By: Vinny Ivett on 02-17-2023 Calcium [Mass/Vol] 9.7 mg/dL 8.5-10.1 [facility] Serum or plasma creatinine m easurement (mass/volume)Ordered By: Vinny Root on 02-17-2023 Creatinine [Mass/Vol] 1.37 mg/dL 0.55-1.02 [facility] Comment on above: The validity of the calculated GFR & GFRAA in patients over 70 years has not been determined. Clinical correlation is essential. Serum or plasma urea nitroge n measurement (mass/volume)Ordered By: Vinny Ivett on 02-17-2023 Urea nitrogen [Mass/Vol] 18 mg/dL 7-[address] [facility] Thin prep Papanicolaou smear with manual screeningOrdered By: Vinny Ivett on 02-17-2023 Thin prep Papanicolaou smear with manual screening 4 5-[address] [facility] Absolute lymphocyte countOrd ered By: Elizabet Viramontes on 12-04-2022 Lymphocytes Auto (Unsp spec) [#/Vol] 1.13 10*3/uL 0.83-4.[address] [facility] Basophil percentageOrdered B y: Elizabet Viramontes on 12-04-2022 Basophil percentage >100 SEEN /hpf 0-5 [facility] Basophils/100 WBC (Bld) 0.4 % 0-1 [facility] Bilirubin [Mass/Vol] 0.60 mg/dL 0.20-1.00 [facility] Comment on above: For patients on eltr ombopag therapy, use of Dimension [place] TBIL is not recommended. Chloride [Moles/Vol] 101 mmol/L 98-107 [facility] Eosinophils/100 WBC (Bld) 0.8 % 0-[address] [facility] Glucose [Mass/Vol] 163 mg/dL 74-106 [facility] Comment on above: Fasting Glucose resu lt greater than or equal to 126 mg/dL suggests DIABETES MELLITUS per A.D.A. criteria. Neutrophils (Bld) [#/Vol] 15.3 10*3/uL 2.0-7.[address] [facility] Neutrophils/100 WBC (Bld) 89.3 % 47-[address] [facility] Potassium [Moles/Vol] 3.0 mmol/L 3.5-5.1 [facility] Protein [Mass/Vol] 9.1 g/dL 6.4-8.2 [facility] Sodium [Moles/Vol] 134 mmol/L 136-145 [facility] WBC (Bld) [#/Vol] 17.1 10*3/uL 4.4-11.0 [facility] Bilirubin Test strip Ql (U)O rdered By: Elizabet Viramontes on 12-04-2022 Bilirubin Ql (U) Negative Negative [facility] Blood erythrocytes count (nu mber/volume)Ordered By: Elizabet Viramontes on 12-04-2022 RBC (Bld) [#/Vol] 4.13 10*6/uL 4.2-5.4 [facility] Blood hemoglobin measurement (mass/volume)Ordered By: Elizabet Viramontes on 12-04-2022 Hemoglobin (Bld) [Mass/Vol] 13.2 g/dL 12.0-15.[address] [facility] Blood lymphocytes/100 leukoc ytesOrdered By: Elizabet Viramontes on 12-04-2022 Lymphocytes/100 WBC (Bld) 6.6 % 19-[address] [facility] Blood monocytes/100 leukocyt esOrdered By: Elizabet Viramontes on 12-04-2022 Monocytes/100 WBC (Bld) 2.3 % 0-10 [facility] Blood platelet mean volumeOr dered By: Elizabet Viramontes on 12-04-2022 Platelet mean volume (Bld) [Entitic vol] 10.4 fL 6.2-12.[address] [facility] Culture, urineOrdered By: Luis Felipe Viramontes on 12-04-2022 Bacteria identified Cx Nom (U) Streptococcus gallolyticus marcy [facility] Determination of erythrocyte mean corpuscular volume (MCV)Ordered By: Elizabet Viramontes on 12-04-2022 MCV (RBC) [Entitic vol] 97.3 fL 81-99 [facility] Hematocrit Auto (Bld) [Volum e fraction]Ordered By: Elizabet Viramontes on 12-04-2022 Hematocrit (Bld) [Volume fraction] 40.2 % 37-[address] [facility] INR in Blood by Coagulation assayOrdered By: Elizabet Viramontes on 12-04-2022 INR Coag (Bld) [Relative time] 2.2 {INR} [facility] Influenza virus A and B and SARS-CoV-2 (COVID-19) Ag panel - Upper respiratory specimOrdered By: Elizabet Viramontes on 12-04-2022 SARS-CoV-2 (COVID-19) RNA CASSIE+probe Ql (Resp) [facility] Ketones Test strip Ql (U)Ord ered By: Elizabet Viramontes on 12-04-2022 Ketones Ql (U) Negative Negative [facility] Laboratory - Chemistry and C hemistry - challengeOrdered By: Elizabet Viramontes on 12-04-2022 ALP [Catalytic activity/Vol] 123 U/L 45-[address] [facility] ALT [Catalytic activity/Vol] 18 U/L 13-[address] [facility] CO2 [Moles/Vol] 25.0 mmol/L 21.0-32.[address] [facility] Globulin (S) [Mass/Vol] 5.3 g/dL 2.2-4.2 [facility] Lipase [Catalytic activity/Vol] 54 U/L 13-75 [facility] - CoagulationOrde red By: Elizabet Viramontes on 12-04-2022 PT Coag (PPP) [Time] 24.6 s 11.7-14.9 [facility] Laboratory - Hematology and Cell countsOrdered By: Elizabet Viramontes on 12-04-2022 Erythrocyte distribution width (RBC) [...] Hospital MCHC Auto (RBC) [Mass/Vol]Or dered By: Elizabet Viramontes on 12-04-2022 MCHC (RBC) [Mass/Vol] 32.8 g/dL 32-36 [facility] Mucus LM Ql (Urine sed)Order ed By: Elizabet Viramontes on 12-04-2022 Mucus Ql (Urine sed) 0 SEEN /hpf [facility] Nitrite Test strip Ql (U)Ord ered By: Elizabet Viramontes on 12-04-2022 Nitrite Ql (U) Negative Negative [facility] No Panel InformationOrdered By: Elizabet Viramontes on 12-04-2022 Troponin I High Sensitivity 10 pg/mL 3.0-54.[address] [facility] Comment on above: Please Note: New Emily t Units and Gender Specific Reference Ranges. For more information see Policy Stat Procedure [place] High Sensitivity Troponin (TNIH) and attachments. Estimated [...] Protein Test strip Ql (U)Ord ered By: Elizabet Viramontes on 12-04-2022 Protein Ql (U) 30 mg/dl Negative [facility] Serum or plasma albumin fernando urement (mass/volume)Ordered By: Elizabet Viramontes on 12-04-2022 Albumin [Mass/Vol] 3.8 g/dL 3.2-5.0 [facility] Serum or plasma albumin/glob ulin mass ratioOrdered By: Elizabet Viramontes on 12-04-2022 Albumin/Globulin [Mass ratio] 0.7 {ratio} 0.9-2.[address] [facility] Serum or plasma calcium fernando urement (mass/volume)Ordered By: Elizabet Viramontes on 12-04-2022 Calcium [Mass/Vol] 9.8 mg/dL 8.5-10.1 [facility] Serum or plasma creatinine m easurement (mass/volume)Ordered By: Elizabet Viramontes on 12-04-2022 Creatinine [Mass/Vol] 1.55 mg/dL 0.55-1.02 [facility] Comment on above: The validity of the calculated GFR & GFRAA in patients over 70 years has not been determined. Clinical correlation is essential. Serum or plasma urea nitroge n measurement (mass/volume)Ordered By: Elizabet Viramontes on 12-04-2022 Urea nitrogen [Mass/Vol] 24 mg/dL 7-[address] [facility] Squamous epithelial cells de tection in urine sediment by light microscopyOrdered By: Elizabet Viramontes on 12-04-2022 Epithelial cells.squamous LM Ql (Urine sed) 0-5 SEEN /hpf 5-[address] [facility] Thin prep Papanicolaou smear with manual screeningOrdered By: Elizabet Viramontes on 12-04-2022 Thin prep Papanicolaou smear with manual screening 20 U/L 15-[address] [facility] Thin prep Papanicolaou smear with manual screening 8 5-[address] [facility] Urine blood detectionOrdered By: Elizabet Viramontes on 12-04-2022 RBC Ql (U) 50 /ul Negative [facility] RBC Ql (U) 0 SEEN /hpf 0-[address] [facility] Urine clarityOrdered By: Tess Viramontes on 12-04-2022 Clarity (U) Turbid Clear [facility] Urine color determinationOrd ered By: Elizabet Viramontes on 12-04-2022 Color (U) Yellow Yellow [facility] Urine glucose detectionOrder ed By: Elizabet Viramontes on 05-25-2023 Glucose Ql (U) 1000 mg/dl Normal [facility] Urine leukocyte esterase det ection by dipstickOrdered By: Elizabet Viramontes on 12-04-2022 Leukocyte esterase Test strip Ql (U) 500 /ul Negative [facility] Urine pHOrdered By: Elizabet holcomb on 12-04-2022 pH (U) 6.0 [pH] 5.0 - 8.[address] [facility] Urine sediment bacteria coun t by microscopy (number/high power field)Ordered By: Elizabet Viramontes on 12-04-2022 Bacteria LM.HPF (Urine sed) [#/Area] 1 /[HPF] None Seen [facility] Urine specific gravity measu rementOrdered By: Elizabet Viramontes on 12-04-2022 Specific gravity (U) [Rel density] 1.010 1.002-1.[address] [facility] Urobilinogen Auto test strip Ql (U)Ordered By: Elizabet Viramontes on 12-04-2022 Urobilinogen Ql (U) Normal mg/dl Normal [facility] CNNURSEon 09-06-2020 CNNURSE Nurse Visit (COVAMD) GUDELIA GUPTA ([id number]) 1940 F Date Time Provider Department 09/06/20 YONG HUNT (DICK) COVLAKIA During your visit today, we recorded the following information about you: Allergies As of Date: 09/06/2020 Noted Allergy Reaction POISON FANY 10/17/2005 SULFA (SULFONAMIDE ANTIBIOTICS) 10/17/2005 4 - Hives Date Reviewed: 10/11/2019 Reviewed by: Cara Herring MA - Fully Assessed Order(s):[facility] SARS-COV-2 VACCINE 2D DOSE APPT [[id number]] Order #: [id number] Prescriptions as of 09/06/2020 Sig: ONETOUCH VERIO [...] Take 1 capsule by mouth twice* X OXYCODONE-ACETAMINOP HEN 10 MG* Take 1 tablet by mouth [...] 10/04/2008 08/13/2011 Routine general medical examination at [facility]*10/04/2008 08/12/2010 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, [...] disease) Stage 3, GFR 30-59*12/14/2017 Encounter Status:Open [facility] Office Visit: [facility] 05-26-20 17 Dietary management education, guidance, and counseling (procedure) yes Invalid Interpretation Code [facility]: [phone] Documentation of current medications (procedure) Done Invalid Interpretation Code [facility]: [phone] Fall risk assessment No Invalid Interpretation Code [facility]: [phone] Chart Maintenanceon 05-15-20 16 Left ventricular Ejection fraction 65 % Invalid Interpretation Code [facility]: [phone] Office Visiton 05-15-2016 Tobacco use [facility] Former smoker Invalid Interpretation Code [facility]: [phone] Lab Report: Basic Metabolic Profile (BMP)on 04-04-2016 Anion gap 6 mmol/L Invalid Interpretation Code 5-15 [employer] [facility]: [phone] BUN/Creatinine Ratio 14.7 RATIO Invalid Interpretation Code 10-20 [facility]: [phone] Calcium 9.2 mg/dL Invalid Interpretation Code 8.5-10.1 [employer] Work Phone: [phone] Chloride 101 mmol/L Invalid Interpretation Code 98-107 [employer] Work Phone: [phone] CO2 27.0 mmol/L Invalid Interpretation Code 21.0-32.0 [employer] Work Phone: [phone] Creatinine 1.50 mg/dL High 0.55-1.20 [employer] Work Phone: [phone] eGFR (non-black) 43 mL/min/{1.73_m2} Low >60 [employer] Work Phone: [phone] eGFR (non-black) 36 mL/min/{1.73_m2} Low >60 [employer] Work Phone: [phone] Glucose mass conc 106 mg/dL Invalid Interpretation Code 70-110 [employer] Work Phone: [phone] Potassium molar conc 4.5 mmol/L Invalid Interpretation Code 3.5-5.1 [employer] Work Phone: [phone] Sodium 134 mmol/L Low 136-145 [employer] Work Phone: [phone] Urea nitrogen 22 mg/dL High 7-18 [employer] Work Phone: [phone]) Lab Report: Lipid Profileon 02-14-2016 Cholesterol 135 mg/dL Invalid Interpretation Code 200 [employer] Work Phone: [phone] HDL Cholesterol 33 mg/dL Low [employer] Work Phone: [phone] LDL Cholesterol 69 mg/dL Invalid Interpretation Code 0-130 [employer] Work Phone: [phone] Triglyceride 166 mg/dL Invalid Interpretation Code [employer] Work Phone: [phone] very low density lipoproteins 33 mg/dL Invalid Interpretation Code 5-40 [employer] Work Phone: [phone]) Lab Report: Liver Profileon 02-14-2016 Alanine aminotransferase (ALT) 23 U/L Invalid Interpretation Code 12-78 [employer] Work Phone: [phone] Albumin 3.5 g/dL Invalid Interpretation Code 3.4-5.0 [employer] Work Phone: [phone] Alkaline phosphatase (ALP) 101 U/L Invalid Interpretation Code 50-136 [employer] Work Phone: [phone] Aspartate aminotransferase (AST) 15 U/L Invalid Interpretation Code 15-37 [employer] Work Phone: [phone] Bilirubin (direct) 0.11 mg/dL Invalid Interpretation Code 0.00-0.30 [employer] Work Phone: [phone] Bilirubin (total) 0.30 mg/dL Invalid Interpretation Code 0.20-1.00 [employer] Work Phone: [phone] Globulin 4.8 g/dL High 2.3-3.5 [employer] Work Phone: [phone] Protein 8.3 g/dL High 6.4-8.2 [facility] Work Phone: [phone]) Lab Report: CBC-Complete Blo od Cnt No Diffon 01-22-2016 Erythrocyte distribution width Auto Ratio (RBC) 14.1 % Invalid Interpretation Code 11.6-14.6 [employer] Phone: [phone] Erythrocytes (RBC) 4.20 10*6/uL Invalid Interpretation Code 4.2-5.4 [employer] Work Phone: [phone] Hematocrit (HCT) 37.1 % Invalid Interpretation Code 37-47 [employer] Phone: [phone] Hemoglobin mass conc (Bld) 11.9 g/dL Low 12.0-15.0 [employer] Phone: [phone] MCH 28.3 pg Invalid Interpretation Code 27.0-32.0 [employer] Phone: [phone] MCHC mass conc (RBC) 32.1 G/GL Invalid Interpretation Code 32-36 [employer] Phone: [phone] MCV 88.3 fL Invalid Interpretation Code 81-99 [employer] Work Phone: [phone] Platelets 321 10*3/mm3 Invalid Interpretation Code 150-450 [employer] Phone: [phone] PMV by Misael 10.9 fL Invalid Interpretation Code 6.2-12.0 [employer] Phone: [phone] RDW SD 45.0 fL High 35.1-43.9 [employer] Work Phone: [phone] WBC (Leukocytes) 6.9 10*3/uL Invalid Interpretation Code 4.4-11.0 [employer] Work Phone: [phone]) Lab Report: T4 Total, Thyrox inon 11-10-2015 Thyroxine (T4) 11.8 ug/dL Invalid Interpretation Code 4.8-13.9 [employer] Work Phone: [phone]) Lab Report: Thyroid Stim Hor chris (TSH)on 11-10-2015 Thyroid stimulating hormone (TSH) 1.65 u[iU]/mL Invalid Interpretation Code 0.358-3.74 [employer] Work Phone: [phone]) Lab Report: BNP,B-Type NATRI URETIC PEPTIDEon 09-26-2015 BNP 105.3 pg/mL High 0-100 [employer] Work Phone: [phone] Lab Report: CBC W/Diff, Auto matedon 09-26-2015 Absolute Neut 2.7 X10 3/UL Invalid Interpretation Code 2.0-7.7 [employer] Work Phone: [phone] Basophils/100 WBC Auto (Bld) 0.4 % Invalid Interpretation Code 0-1 [employer] Work Phone: [phone] Eosinophils/100 leukocytes 2.7 % Invalid Interpretation Code 0-5 [employer] Work Phone: [phone] Immature granulocytes/100 WBC (Bld) 0.200 % Invalid Interpretation Code 0.0-0.9 [employer] Work Phone: [phone] Lymphocytes 1.75 X10 3/UL Invalid Interpretation Code 0.83-4.51 [employer] Work Phone: [phone] Lymphocytes/100 leukocytes 34.3 % Invalid Interpretation Code 19-41 [employer] Work Phone: [phone] Monocytes/100 leukocytes 10.0 % Invalid Interpretation Code 0-10 [employer] Work Phone: [phone] Neutrophils/100 WBC Auto (Bld) 52.4 % Invalid Interpretation Code 47-70 [employer] Work Phone: [phone] Lab Report: Magnesiumon Magnesium 1.8 mg/dL Invalid Interpretation Code 1.8-2.4 [employer] Work Phone: [phone] Replaced Document: Malathi Garcia CG Observationson 03-20-2015 BUN (urea nitrogen) Sinus Bradycardia -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 ABNORMAL Invalid Interpretation Code [employer] Work Phone: [phone] EKG QRS axis -60 deg Invalid Interpretation Code [employer] Work Phone: [phone] P [place] 46 deg Invalid Interpretation Code [employer] Work Phone: [phone] WA Interval 184 ms Invalid Interpretation Code [employer] Work Phone: [phone] Pulse (Heart Rate) 58 /min Invalid Interpretation Code [employer] Work Phone: [phone] QRS Duration 146 ms Invalid Interpretation Code [employer] Work Phone: [phone] QT Interval new path ms Invalid Interpretation Code [employer] Work Phone: [phone] QTc Deng 455 ms Invalid Interpretation Code [employer] Work Phone: [phone] T [place] 19 deg Invalid Interpretation Code [employer] Work Phone: [phone] Lab Report: CBC W/Diff, Auto matedon 02-13-2015 Absolute Neut 2.9 X10 3/UL Invalid Interpretation Code 2.0-7.7 [employer] Work Phone: [phone] Lymphocytes 1.41 X10 3/UL Invalid Interpretation Code 0.83-4.51 [employer] Work Phone: [phone] Office Visiton 11-09-2014 cardiac risk group C Invalid Interpretation Code [employer] Work Phone: [phone] General cardiovascular disease 10Y risk [#] [place]D'Agost[place] N/A Invalid Interpretation Code [employer] Work Phone: [phone] Office [facility] 09-29-2013 Alcoholism counseling (procedure) no Invalid Interpretation Code [employer] Work Phone: [phone] Replaced Document: Malathi Garcia CG Observationson 03-25-2013 Pulse (Heart Rate) 478 ms Invalid Interpretation Code [employer] Work Phone: [phone] Vital Signs Date Time Vital Sign Value Performing Clinician Facility 04-06-2025 09:27-0400 Heart rate 80 /min Dr. Victor M Rocha MD Work Phone: [facility] 04-06-2025 09:00-0400 Body temperature 97.8 [degF] Dr. Victor M Rocha MD Work Phone: [facility] 04-06-2025 09:00-0400 Diastolic blood pressure 48 mm[Hg] Dr. Victor M Rocha MD Work Phone: [facility] 04-06-2025 09:00-0400 Respiratory rate 16 /min Dr. Victor M Rocha MD Work Phone: [facility] 04-06-2025 09:00-0400 SaO2% (BldA) [Mass fraction] 94 % Dr. Victor M Rocha MD Work Phone: [facility] 04-06-2025 09:00-0400 Systolic blood pressure 121 mm[Hg] Dr. Victor M Rocha MD Work Phone: 5(519)206-743995 [place] [address] 04-06-2025 07:01-0400 Inhaled oxygen flow rate 2 L/min Dr. Victor M Rocha MD Work Phone: 7(048)261-018095 [place] [address] 04-06-2025 06:00-0400 Body mass index (BMI) [Ratio] 29.9 kg/m2 Dr. Victor M Rocha MD Work Phone: 9(166)695-276979 [place] [address] 04-06-2025 06:00-0400 Body weight 89.[address] Victor M Rocha MD Work Phone: 2(003)965-538395 [place] [address] 04-03-2025 17:31-0400 Body height 172.[address] Victor M Rocha MD Work Phone: [facility] 03-07-2025 14:02-0400 Body mass index (BMI) [Ratio] 29.13 kg/m2 Victor M Rocha MD Work Phone: [facility] 03-07-2025 14:02-0400 Body weight 86.9 kg Victor M Rocha MD Work Phone: [facility] 03-07-2025 14:02-0400 Diastolic blood pressure 74 mm[Hg] Victor M Rocha MD Work Phone: [facility] 03-07-2025 14:02-0400 Heart rate 66 /min Victor M Rocha MD Work Phone: [facility] 03-07-2025 14:02-0400 Respiratory rate 16 /min Victor M Rocha MD Work Phone: [facility] 03-07-2025 14:02-0400 Systolic blood pressure 112 mm[Hg] Victor M Rocha MD Work Phone: [facility] 02-24-2025 13:05-0400 Body height 172.7 cm Shara Agarwal PA-C Work Phone: [facility] 02-24-2025 13:05-0400 Body mass index (BMI) [Ratio] 27.67 kg/m2 Shara Agarwal PA-C Work Phone: [facility] 02-24-2025 13:05-0400 Body weight 82.56 kg Shara Agarwal PA-C Work Phone: [facility] 02-24-2025 13:05-0400 Diastolic blood pressure 64 mm[Hg] Shara Agarwal PA-C Work Phone: [facility] 02-24-2025 13:05-0400 Heart rate 66 /min Shara Agarwal PA-C Work Phone: [facility] 02-24-2025 13:05-0400 SaO2% (BldA) [Mass fraction] 96 % Shara Agarwal PA-C Work Phone: [facility] 02-24-2025 13:05-0400 Systolic blood pressure 132 mm[Hg] Shara Agarwal PA-C Work Phone: [facility] 02-21-2025 09:27-0400 Body height 172.[address] Victor M Rocha MD Work Phone: [facility] 02-21-2025 09:27-0400 Body mass index (BMI) [Ratio] 28.3 kg/m2 Dr. Victor M Rocha MD Work Phone: [facility] 02-21-2025 09:27-0400 Body weight 84.[address] Victor M Rocha MD Work Phone: [facility] 02-21-2025 09:27-0400 Diastolic blood pressure 66 mm[Hg] Dr. Victor M Rocha MD Work Phone: [facility] 02-21-2025 09:27-0400 Heart rate 78 /min Dr. Victor M Rocha MD Work Phone: 7(593)634-757379 [place] [address] 02-21-2025 09:27-0400 Respiratory rate 18 /min Dr. Victor M Rocha MD Work Phone: 0(217)956-959079 [place] [address] 02-21-2025 09:27-0400 SaO2% (BldA) [Mass fraction] 93 % Dr. Victor M Rocha MD Work Phone: 4(732)832-308679 [place] [address] 02-21-2025 09:27-0400 Systolic blood pressure 109 mm[Hg] Dr. Victor M Rocha MD Work Phone: 2(861)475-944079 [place] [address] 02-10-2025 15:00-0400 Heart rate 80 /min Dr. Victor M Rocha MD Work Phone: 3(873)500-114479 [place] [address] 02-10-2025 14:34-0400 Body temperature 98.1 [degF] Dr. Victor M Rocha MD Work Phone: 6(460)314-733179 [place] [address] 02-10-2025 14:34-0400 Diastolic blood pressure 62 mm[Hg] Dr. Victor M Rocha MD Work Phone: 2(789)727-397279 [place] [address] 02-10-2025 14:34-0400 Respiratory rate 18 /min Dr. Victor M Rocha MD Work Phone: 3(729)877-873979 [place] [address] 02-10-2025 14:34-0400 SaO2% (BldA) [Mass fraction] 92 % Dr. Victor M Rocha MD Work Phone: 7(972)630-452679 [place] [address] 02-10-2025 14:34-0400 Systolic blood pressure 128 mm[Hg] Dr. Victor M Rocha MD Work Phone: 9(548)023-209679 [place] [address] 02-10-2025 08:51-0400 Inhaled oxygen flow rate 2 L/min Dr. Victor M Rocha MD Work Phone: 6(819)955-516079 [place] [address] 02-10-2025 04:48-0400 Body mass index (BMI) [Ratio] 27.7 kg/m2 Dr. Victor M Rocha MD Work Phone: 3(459)453-000979 [place] [address] 02-10-2025 04:48-0400 Body weight 82.[address] Victor M Rocha MD Work Phone: 3(123)881-177479 [place] [address] 02-09-2025 09:28-0400 Body height 172.[address] Victor M Rocha MD Work Phone: 3(684)697-476079 [place] [address] 02-08-2025 21:08-0400 Body temperature 98.3 [degF] Dr. Victor M Rocha MD Work Phone: 5(476)423-362379 [place] [address] 02-08-2025 21:08-0400 Diastolic blood pressure 78 mm[Hg] Dr. Victor M Rocha MD Work Phone: 9(963)787-408579 [place] [address] 02-08-2025 21:08-0400 Heart rate 87 /min Dr. Victor M Rocha MD Work Phone: 7(175)046-350979 [place] [address] 02-08-2025 21:08-0400 Respiratory rate 18 /min Dr. Victor M Rocha MD Work Phone: 6(106)903-453879 [place] [address] 02-08-2025 21:08-0400 SaO2% (BldA) [Mass fraction] 95 % Dr. Victor M Rocha MD Work Phone: 4(731)200-008179 [place] [address] 02-08-2025 21:08-0400 Systolic blood pressure 164 mm[Hg] Dr. Victor M Rocha MD Work Phone: 5(474)706-047779 [place] [address] 02-08-2025 21:00-0400 Inhaled oxygen flow rate 2 L/min Dr. Victor M Rocha MD Work Phone: 3(878)422-200279 [place] [address] 02-08-2025 17:11-0400 Body mass index (BMI) [Ratio] 29.5 kg/m2 Dr. Victor M Rocha MD Work Phone: 9(166)543-519279 [place] [address] 02-08-2025 17:11-0400 Body weight 88.[address] Victor M Rocha MD Work Phone: 9(620)471-323279 [place] [address] 02-08-2025 16:54-0400 Body height 172.[address] Victor M Rocha MD Work Phone: 7(701)998-322079 [place] [address] 02-06-2025 10:53-0400 Body mass index (BMI) [Ratio] 31.31 kg/m2 Carlos Lacy JET DYEING MACHINE OPERATOR.YARN [employer] Work Phone: [facility] 02-06-2025 10:53-0400 Body temperature 98.4 [degF] Carlos Mclaughlinil JET DYEING MACHINE OPERATOR.YARN DU[employer] Work Phone: [facility] 02-06-2025 10:53-0400 Body weight 88 kg Carlos House JET DYEING MACHINE OPERATOR.YARN DU[employer]ER Work Phone: [facility] 02-06-2025 10:53-0400 Diastolic blood pressure 78 mm[Hg] Carlos Lacy JET DYEING MACHINE OPERATOR.YARN DUMPER Work Phone: [facility] 02-06-2025 10:53-0400 Heart rate 80 /min Carlos House JET DYEING MACHINE OPERATOR.YARN DU[employer]ER Work Phone: [facility] 02-06-2025 10:53-0400 Respiratory rate 16 /min Carlos House JET DYEING MACHINE OPERATOR.YARN DU[employer]ER Work Phone: [facility] 02-06-2025 10:53-0400 SaO2% (BldA) [Mass fraction] 94 % Carlos House JET DYEING MACHINE OPERATOR.YARN DU[employer]ER Work Phone: [facility] 02-06-2025 10:53-0400 Systolic blood pressure 138 mm[Hg] Carlos House JET DYEING MACHINE OPERATOR.YARN DU[employer]ER Work Phone: [facility] 11-18-2024 06:01-0400 Body mass index (BMI) [Ratio] 29.6 kg/m2 Dr. Victor M Rocha MD Work Phone: [facility] 11-18-2024 06:01-0400 Body weight 88.[address] Victor M Rocha MD Work Phone: [facility] 11-18-2024 06:01-0400 Diastolic blood pressure 76 mm[Hg] Dr. Victor M Rocha MD Work Phone: [facility] 11-18-2024 06:01-0400 Heart rate 67 /min Dr. Victor M Rocha MD Work Phone: [facility] 11-18-2024 06:01-0400 Respiratory rate 18 /min Dr. Victor M Rocha MD Work Phone: [facility] 11-18-2024 06:01-0400 SaO2% (BldA) [Mass fraction] 92 % Dr. Victor M Rocha MD Work Phone: [facility] 11-18-2024 06:01-0400 Systolic blood pressure 134 mm[Hg] Dr. Victor M Rocha MD Work Phone: [facility] 08-12-2024 12:46-0500 Body mass index (BMI) [Ratio] 30.51 kg/m2 Carlos Lacy JET DYEING MACHINE OPERATOR.YARN DU[employer]ER Work Phone: [facility] 08-12-2024 12:46-0500 Body weight 85.73 kg Carlos House JET DYEING MACHINE OPERATOR.YARN DU[employer]ER Work Phone: [facility] 08-12-2024 12:46-0500 Diastolic blood pressure 86 mm[Hg] Carlos Lacy JET DYEING MACHINE OPERATOR.YARN DU[employer]ER Work Phone: [facility] 08-12-2024 12:46-0500 Heart rate 80 /min Carlos Lacy JET DYEING MACHINE OPERATOR.YARN DU[employer]ER Work Phone: [facility] 08-12-2024 12:46-0500 Respiratory rate 18 /min Carlos Lacy JET DYEING MACHINE OPERATOR.YARN DU[employer]ER Work Phone: [facility] 08-12-2024 12:46-0500 SaO2% (BldA) [Mass fraction] 96 % Carlos House JET DYEING MACHINE OPERATOR.YARN DU[employer]ER Work Phone: [facility] 08-12-2024 12:46-0500 Systolic blood pressure 128 mm[Hg] Carlos Lacy JET DYEING MACHINE OPERATOR.YARN DU[employer]ER Work Phone: [facility] 04-06-2024 11:28-0400 Body mass index (BMI) [Ratio] 29.82 kg/m2 Yovana Painter JET DYEING MACHINE OPERATOR.YARN [employer] Work Phone: [facility] 04-06-2024 11:28-0400 Body weight 83.8 kg Yovana Raphaelf JET DYEING MACHINE OPERATOR.YARN [employer] Work Phone: [facility] 04-06-2024 11:28-0400 Diastolic blood pressure 77 mm[Hg] Yovana Sanchezhof JET DYEING MACHINE OPERATOR.YARN [employer] Work Phone: [facility] 04-06-2024 11:28-0400 Heart rate 90 /min Yovana Sanchezhof JET DYEING MACHINE OPERATOR.YARN DU[employer]ER Work Phone: [facility] 04-06-2024 11:28-0400 Respiratory rate 16 /min Yovana Sanchezhof JET DYEING MACHINE OPERATOR.YARN DU[employer]ER Work Phone: [facility] 04-06-2024 11:28-0400 SaO2% (BldA) [Mass fraction] 95 % Yovana Sanchezhof JET DYEING MACHINE OPERATOR.YARN DU[employer] Work Phone: [facility] 04-06-2024 11:28-0400 Systolic blood pressure 127 mm[Hg] Yovana Sanchezhof JET DYEING MACHINE OPERATOR.YARN DU[employer]ER Work Phone: [facility] 04-01-2024 08:31-0400 Body mass index (BMI) [Ratio] 30.99 kg/m2 Elizabet Masci DO Work Phone: [facility] 04-01-2024 08:31-0400 Body temperature 97.11 [degF] Elizabet Masci DO Work Phone: [facility] 04-01-2024 08:31-0400 Body weight 87.09 kg Elizabet Masci DO Work Phone: [facility] 04-01-2024 08:31-0400 Diastolic blood pressure 73 mm[Hg] Elizabet Masci DO Work Phone: [facility] 04-01-2024 08:31-0400 Heart rate 90 /min Elizabet Masci DO Work Phone: [facility] 04-01-2024 08:31-0400 SaO2% (BldA) [Mass fraction] 92 % Elizabet Masci DO Work Phone: [facility] 04-01-2024 08:31-0400 Systolic blood pressure 128 mm[Hg] Elizabet Masci DO Work Phone: [facility] 03-25-2024 09:09-0400 Body mass index (BMI) [Ratio] 33.17 kg/m2 Elizabet Masci DO Work Phone: [facility] 03-25-2024 09:09-0400 Body temperature 97.59 [degF] Elizabet Masci DO Work Phone: [facility] 03-25-2024 09:09-0400 Body weight 93.21 kg Elizabet Masci DO Work Phone: [facility] 03-25-2024 09:09-0400 Diastolic blood pressure 72 mm[Hg] Elizabet Masci DO Work Phone: [facility] 03-25-2024 09:09-0400 Heart rate 90 /min Elizabet Masci DO Work Phone: [facility] 03-25-2024 09:09-0400 SaO2% (BldA) [Mass fraction] 82 % Elizabet Masci DO Work Phone: [facility] 03-25-2024 09:09-0400 Systolic blood pressure 137 mm[Hg] Elizabet Masci DO Work Phone: [facility] 02-26-2024 10:59-0400 Body mass index (BMI) [Ratio] 31.55 kg/m2 Elizabet Masci DO Work Phone: [facility] 02-26-2024 10:59-0400 Body temperature 97.59 [degF] Elizabet Masci DO Work Phone: [facility] 02-26-2024 10:59-0400 Body weight 88.68 kg Elizabet Masci DO Work Phone: [facility] 02-26-2024 10:59-0400 Diastolic blood pressure 76 mm[Hg] Elizabet Masci DO Work Phone: [facility] 02-26-2024 10:59-0400 Heart rate 91 /min Elizabet Masci DO Work Phone: [facility] 02-26-2024 10:59-0400 SaO2% (BldA) [Mass fraction] 95 % Elizabet Baker DO Work Phone: [facility] 02-26-2024 10:59-0400 Systolic blood pressure 146 mm[Hg] Elizabet Baker DO Work Phone: [facility] 02-16-2024 12:07-0400 Body mass index (BMI) [Ratio] 32.17 kg/m2 Krislyn Aberegg PA Work Phone: [facility] 02-16-2024 12:07-0400 Body temperature 96.91 [degF] Krislyn Aberegg PA Work Phone: [facility] 02-16-2024 12:07-0400 Body weight 90.4 kg Krislyn Aberegg PA Work Phone: [facility] 02-16-2024 12:07-0400 Diastolic blood pressure 82 mm[Hg] Krislyn Aberegg PA Work Phone: [facility] 02-16-2024 12:07-0400 Heart rate 88 /min Krislyn Aberegg PA Work Phone: [facility] 02-16-2024 12:07-0400 Respiratory rate 16 /min Krislyn Aberegg PA Work Phone: [facility] 02-16-2024 12:07-0400 SaO2% (BldA) [Mass fraction] 96 % Krislyn Aberegg PA Work Phone: [facility] 02-16-2024 12:07-0400 Systolic blood pressure 132 mm[Hg] Krislyn Aberegg PA Work Phone: [facility] 02-01-2024 12:31-0400 Body mass index (BMI) [Ratio] 32.07 kg/m2 Victor M Rocha MD Work Phone: [facility] 02-01-2024 12:31-0400 Body weight 90.13 kg Victor M Rocha MD Work Phone: [facility] 02-01-2024 12:31-0400 Diastolic blood pressure 74 mm[Hg] Victor M Rocha MD Work Phone: [facility] 02-01-2024 12:31-0400 Heart rate 88 /min Victor M Rocha MD Work Phone: [facility] 02-01-2024 12:31-0400 Respiratory rate 16 /min Victor M Rocha MD Work Phone: [facility] 02-01-2024 12:31-0400 Systolic blood pressure 124 mm[Hg] Victor M Rocha MD Work Phone: [facility] 01-15-2024 10:45-0400 Body mass index (BMI) [Ratio] 32.38 kg/m2 Daniel Bucio MD Work Phone: [facility] 01-15-2024 10:45-0400 Body temperature 97.5 [degF] Daniel Bucio MD Work Phone: [facility] 01-15-2024 10:45-0400 Body weight 91 kg Daniel Bucio MD Work Phone: [facility] 01-15-2024 10:45-0400 Diastolic blood pressure 58 mm[Hg] Daniel Bucio MD Work Phone: [facility] 01-15-2024 10:45-0400 Heart rate 91 /min Daniel Bucio MD Work Phone: [facility] 01-15-2024 10:45-0400 Respiratory rate 22 /min Daniel Bucio MD Work Phone: [facility] 01-15-2024 10:45-0400 SaO2% (BldA) [Mass fraction] 95 % Daniel Bucio MD Work Phone: [facility] 01-15-2024 10:45-0400 Systolic blood pressure 128 mm[Hg] Daniel Bucio MD Work Phone: [facility] 12-24-2023 15:53-0400 Body mass index (BMI) [Ratio] 32.96 kg/m2 Victor M Rocha MD Work Phone: [facility] 12-24-2023 15:53-0400 Body weight 92.63 kg Victor M Rocha MD Work Phone: [facility] 12-24-2023 15:53-0400 Diastolic blood pressure 66 mm[Hg] Victor M Rocha MD Work Phone: [facility] 12-24-2023 15:53-0400 Heart rate 90 /min Victor M Rocha MD Work Phone: [facility] 12-24-2023 15:53-0400 Respiratory rate 20 /min Victor M Rocha MD Work Phone: [facility] 12-24-2023 15:53-0400 SaO2% (BldA) [Mass fraction] 94 % Victor M Rocha MD Work Phone: [facility] 12-24-2023 15:53-0400 Systolic blood pressure 124 mm[Hg] Victor M Rocha MD Work Phone: [facility] 12-23-2023 14:10-0400 Body temperature 97.3 [degF] Treatment Wstr Work Phone: [facility] 12-23-2023 14:10-0400 Diastolic blood pressure 76 mm[Hg] Treatment Wstr Work Phone: [facility] 12-23-2023 14:10-0400 Heart rate 90 /min Treatment Wstr Work Phone: [facility] 12-23-2023 14:10-0400 SaO2% (BldA) [Mass fraction] 94 % Treatment Wstr Work Phone: [facility] 12-23-2023 14:10-0400 Systolic blood pressure 142 mm[Hg] Treatment Wstr Work Phone: [facility] 12-11-2023 14:21-0400 Body temperature 97.9 [degF] Treatment Wstr Work Phone: [facility] 12-11-2023 14:21-0400 Diastolic blood pressure 59 mm[Hg] Treatment Wstr Work Phone: [facility] 12-11-2023 14:21-0400 Heart rate 91 /min Treatment Wstr Work Phone: [facility] 12-11-2023 14:21-0400 SaO2% (BldA) [Mass fraction] 93 % Treatment Wstr Work Phone: [facility] 12-11-2023 14:21-0400 Systolic blood pressure 97 mm[Hg] Treatment Wstr Work Phone: [facility] 12-09-2023 13:49-0400 Body temperature 97.39 [degF] Treatment Wstr Work Phone: [facility] 12-09-2023 13:49-0400 Diastolic blood pressure 56 mm[Hg] Treatment Wstr Work Phone: [facility] 12-09-2023 13:49-0400 Heart rate 91 /min Treatment Wstr Work Phone: [facility] 12-09-2023 13:49-0400 SaO2% (BldA) [Mass fraction] 93 % Treatment Wstr Work Phone: [facility] 12-09-2023 13:49-0400 Systolic blood pressure 128 mm[Hg] Treatment Wstr Work Phone: [facility] 12-02-2023 13:36-0400 Body temperature 97.39 [degF] Treatment Wstr Work Phone: [facility] 12-02-2023 13:36-0400 Diastolic blood pressure 62 mm[Hg] Treatment Wstr Work Phone: [facility] 12-02-2023 13:36-0400 Heart rate 79 /min Treatment Wstr Work Phone: [facility] 12-02-2023 13:36-0400 Respiratory rate 18 /min Treatment Wstr Work Phone: [facility] 12-02-2023 13:36-0400 SaO2% (BldA) [Mass fraction] 99 % Treatment [facility]str Work Phone: [facility] 12-02-2023 13:36-0400 Systolic blood pressure 108 mm[Hg] Treatment Wstr Work Phone: [facility] 11-26-2023 15:06-0400 Body temperature 97.3 [degF] Treatment Wstr Work Phone: [facility] 11-26-2023 15:06-0400 Diastolic blood pressure 74 mm[Hg] Treatment Wstr Work Phone: [facility] 11-26-2023 15:06-0400 Heart rate 90 /min Treatment Wstr Work Phone: [facility] 11-26-2023 15:06-0400 Respiratory rate 20 /min Treatment Wstr Work Phone: [facility] 11-26-2023 15:06-0400 SaO2% (BldA) [Mass fraction] 93 % Treatment [facility]str Work Phone: [facility] 11-26-2023 15:06-0400 Systolic blood pressure 114 mm[Hg] Treatment Wstr Work Phone: [facility] 11-23-2023 14:38-0400 Body mass index (BMI) [Ratio] 34.46 kg/m2 Victor M oRcha MD Work Phone: [facility] 11-23-2023 14:38-0400 Body weight 96.84 kg Victor M Rocha MD Work Phone: [facility] 11-23-2023 14:38-0400 Diastolic blood pressure 76 mm[Hg] Victor M Rocha MD Work Phone: [facility] 11-23-2023 14:38-0400 Heart rate 68 /min Victor M Rocha MD Work Phone: [facility] 11-23-2023 14:38-0400 Respiratory rate 18 /min Victor M Rocha MD Work Phone: [facility] 11-23-2023 14:38-0400 Systolic blood pressure 120 mm[Hg] Victor M Rocha MD Work Phone: [facility] 11-17-2023 11:31-0400 Body mass index (BMI) [Ratio] 34.38 kg/m2 Elizabet Vogeli DO Work Phone: [facility] 11-17-2023 11:31-0400 Body temperature 97.5 [degF] Elizabet Vogeli DO Work Phone: [facility] 11-17-2023 11:31-0400 Body weight 96.62 kg Elizabet Vogeli DO Work Phone: [facility] 11-17-2023 11:31-0400 Diastolic blood pressure 76 mm[Hg] Elizabet Vogeli DO Work Phone: [facility] 11-17-2023 11:31-0400 Heart rate 89 /min Elizabet Vogeli DO Work Phone: [facility] 11-17-2023 11:31-0400 SaO2% (BldA) [Mass fraction] 93 % Elizabet Vogeli DO Work Phone: [facility] 11-17-2023 11:31-0400 Systolic blood pressure 131 mm[Hg] Elizabet Vogeli DO Work Phone: [facility] 10-30-2023 10:25-0400 Body weight 95.89 kg Victor M Rocha MD Work Phone: [facility] 10-30-2023 10:25-0400 Diastolic blood pressure 64 mm[Hg] Victor M Rocha MD Work Phone: [facility] 10-30-2023 10:25-0400 Heart rate 90 /min Victor M Rocha MD Work Phone: [facility] 10-30-2023 10:25-0400 Respiratory rate 18 /min Victor M Rocha MD Work Phone: [facility] 10-30-2023 10:25-0400 SaO2% (BldA) [Mass fraction] 100 % Victor M Rocha MD Work Phone: [facility] 10-30-2023 10:25-0400 Systolic blood pressure 118 mm[Hg] Victor M Rocha MD Work Phone: [facility] 06-22-2023 11:34-0500 Body temperature 98.71 [degF] Ana Podlogar JET DYEING MACHINE OPERATOR.YARN [employer]ER Work Phone: [facility] 06-22-2023 11:34-0500 Body weight 93.35 kg Ana Podlogar JET DYEING MACHINE OPERATOR.YARN DU[employer]ER Work Phone: [facility] 06-22-2023 11:34-0500 Diastolic blood pressure 62 mm[Hg] Ana Podlogar JET DYEING MACHINE OPERATOR.YARN DU[employer]ER Work Phone: [facility] 06-22-2023 11:34-0500 Heart rate 90 /min Ana Podlogar JET DYEING MACHINE OPERATOR.YARN DU[employer]ER Work Phone: [facility] 06-22-2023 11:34-0500 Respiratory rate 18 /min Ana Podlogar JET DYEING MACHINE OPERATOR.YARN DUMPER Work Phone: [facility] 06-22-2023 11:34-0500 SaO2% (BldA) [Mass fraction] 97 % Ana Podlogar JET DYEING MACHINE OPERATOR.YARN DUMPER Work Phone: [facility] 06-22-2023 11:34-0500 Systolic blood pressure 122 mm[Hg] Ana Podlogar JET DYEING MACHINE OPERATOR.YARN DUMPER Work Phone: [facility] 06-15-2023 14:10-0500 Body height 167.64 cm [...] 06-05-2023 12:20-0500 Body temperature 97.5 [degF] Beverley Praisler-Wood JET DYEING MACHINE OPERATOR.YARN DU[employer]ER Work Phone: [facility] 06-05-2023 12:20-0500 Body weight 93.89 kg Beverley Praisler-Wood JET DYEING MACHINE OPERATOR.YARN DU[employer]ER Work Phone: [facility] 06-05-2023 12:20-0500 Diastolic blood pressure 66 mm[Hg] Beverley Praisler-Wood JET DYEING MACHINE OPERATOR.YARN DU[employer]ER Work Phone: [facility] 06-05-2023 12:20-0500 Heart rate 72 /min Beverley Praisler-Wood JET DYEING MACHINE OPERATOR.YARN DUMPER Work Phone: [facility] 06-05-2023 12:20-0500 Respiratory rate 16 /min Beverley Praisler-Wood JET DYEING MACHINE OPERATOR.YARN DUMPER Work Phone: [facility] 06-05-2023 12:20-0500 SaO2% (BldA) [Mass fraction] 98 % Beverley Praisler-Wood JET DYEING MACHINE OPERATOR.YARN DU[employer]ER Work Phone: [facility] 06-05-2023 12:20-0500 Systolic blood pressure 118 mm[Hg] Beverley Praisler-Wood JET DYEING MACHINE OPERATOR.YARN DU[employer]ER Work Phone: [facility] 04-28-2023 10:42-0400 Body weight 93.44 kg Victor M Rocha MD Work Phone: [facility] 04-28-2023 10:42-0400 Diastolic blood pressure 72 mm[Hg] Victor M Rocha MD Work Phone: [facility] 04-28-2023 10:42-0400 Heart rate 82 /min Victor M Rocha MD Work Phone: [facility] 04-28-2023 10:42-0400 Respiratory rate 18 /min Victor M Rocha MD Work Phone: [facility] 04-28-2023 10:42-0400 Systolic blood pressure 118 mm[Hg] Victor M Rocha MD Work Phone: [facility] 02-17-2023 11:11-0400 Body height 167.[address] Victor M [...] kg Victor M Rocha MD Work Phone: [facility] 12-11-2022 14:10-0400 Diastolic blood pressure 68 mm[Hg] Victor M Rocha MD Work Phone: [facility] 12-11-2022 14:10-0400 Heart rate 84 /min Victor M Rocha MD Work Phone: [facility] 12-11-2022 14:10-0400 Respiratory rate 20 /min Victor M Rocha MD Work Phone: [facility] 12-11-2022 14:10-0400 Systolic blood pressure 114 mm[Hg] Victor M Rocha MD Work Phone: [facility] 12-04-2022 17:54-0400 Diastolic blood pressure 65 [...] kg Victor M Rocha MD Work Phone: [facility] 10-24-2022 10:24-0400 Diastolic blood pressure 78 mm[Hg] Victor M Rocha MD Work Phone: [facility] 10-24-2022 10:24-0400 Heart rate 66 /min Victor M Rocha MD Work Phone: [facility] 10-24-2022 10:24-0400 Respiratory rate 16 /min Victor M Rocha MD Work Phone: [facility] 10-24-2022 10:24-0400 Systolic blood pressure 120 mm[Hg] Victor M Rocha MD Work Phone: [facility] 09-09-2022 11:03-0500 Body height 167.6 cm Ida Magaña MD Work Phone: [facility] 09-09-2022 11:03-0500 Body temperature 97.81 [degF] Ida Magaña MD Work Phone: [facility] 09-09-2022 11:03-0500 Body weight 95.48 kg Ida Magaña MD Work Phone: [facility] 09-09-2022 11:03-0500 Diastolic blood pressure 71 mm[Hg] Ida Magaña MD Work Phone: [facility] 09-09-2022 11:03-0500 Heart rate 90 /min Ida Magaña MD Work Phone: [facility] 09-09-2022 11:03-0500 Systolic blood pressure 121 mm[Hg] Ida Magaña MD Work Phone: [facility] 08-15-2022 12:37-0500 Body height 170.18 cm [...] kg Victor M Rocha MD Work Phone: [facility] 01-14-2022 09:29-0400 Diastolic blood pressure 74 mm[Hg] Victor M Rocha MD Work Phone: [facility] 01-14-2022 09:29-0400 Heart rate 66 /min Victor M Rocha MD Work Phone: [facility] 01-14-2022 09:29-0400 Respiratory rate 16 /min Victor M Rocha MD Work Phone: [facility] 01-14-2022 09:29-0400 Systolic blood pressure 122 mm[Hg] Victor M Rocha MD Work Phone: [facility] 10-11-2021 10:59-0400 Body weight 96.25 kg Victor M Rocha MD Work Phone: [facility] 10-11-2021 10:59-0400 Diastolic blood pressure 70 mm[Hg] Victor M Rocha MD Work Phone: [facility] 10-11-2021 10:59-0400 Heart rate 66 /min Victor M Rocha MD Work Phone: [facility] 10-11-2021 10:59-0400 Respiratory rate 16 /min Victor M Rocha MD Work Phone: [facility] 10-11-2021 10:59-0400 Systolic blood pressure 124 mm[Hg] Victor M Rocha MD Work Phone: [facility] 05-26-2017 13:20-0500 BMI (Body Mass Index) 33.3 kg/m2 [facility] Work Phone: 05-26-2017 13:20-0500 BP Diastolic 70 mm[Hg] [facility] Work Phone: 05-26-2017 13:20-0500 BP Systolic 142 mm[Hg] [facility] Work Phone: 05-26-2017 13:20-0500 Height 172.72 cm [facility] Work Phone: 05-26-2017 13:20-0500 Pulse (Heart Rate) 64 /min [facility] Work Phone: 05-26-2017 13:20-0500 Respiratory Rate 20 /min [facility] Work Phone: 05-26-2017 13:20-0500 Weight 99.34 kg [facility] Work Phone: 05-15-2016 12:46-0400 BSA (Body Surface Area) 2.16 m2 [facility] Work Phone: 05-15-2016 12:46-0400 Pulse Oximetry 97 % [facility] Work Phone: 04-17-2015 15:02-0400 BP Diastolic 70 mm[Hg] [facility] Work Phone: 04-17-2015 15:02-0400 BP Systolic 130 mm[Hg] [facility] Work Phone: 04-17-2015 15:02-0400 BP Systolic 140 mm[Hg] [facility] Work Phone: Encounters Encounter Date Encounter Type Care Provider Facility Start: 04-06-2025 Non-patient / [facility] Work Phone: Start: 04-05-2025 Non-patient / [facility] Work Phone: Start: 04-04-2025 [facility]-patient / [facility] Work [facility]: Start: 04-03-2025 ambulatory Gunnar Mullen Facility:[facility] Start: 04-03-2025 End: 04-06-2025 Evaluation and management of inpatient Dr. 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); Generalized weakness; MDD (major depressive disorder), recurrent episode, moderate (HCC); Stage 3b chronic kidney disease (HCC); Chronic diastolic CHF (congestive heart failure) (HCC); Anemia, unspecified type; Paroxysmal atrial fibrillation (HCC); Essential hypertension, benign; Iron deficiency anemia, unspecified iron deficiency anemia type; Hypothyroidism, unspecified type; Hyperlipidemia, unspecified hyperlipidemia type Start: 03-07-2025 End: 03-07-2025 ambulatory VICTOR M ROCHA Facility:[facility] Start: 02-24-2025 End: 02-24-2025 Patient encounter procedure Shara Agarwal PA-C Work Phone: [facility] [place] Comment on above: Anemia, unspecified type; Positive fecal occult blood test Start: 02-24-2025 End: 02-24-2025 ambulatory SHARA AGARWAL Facility:[facility] Start: 02-23-2025 End: 02-23-2025 Refill Victor M Rocha MD Work Phone: [facility] Comment on above: Refill Request Start: 02-21-2025 End: 02-21-2025 Patient encounter procedure Phyllis BYERS -[facility] Work Phone: Start: 02-21-2025 End: 02-21-[address] Victor M Rocha MD Work Phone: [facility] Start: 02-14-2025 End: 02-14-2025 ambulatory SHARLENE CHERRY Facility:[facility] Start: 02-13-2025 End: 02-14-2025 Telephone encounter Victor M Rocha MD Work Phone: [facility] Comment on above: medication interacti ons; POC Transition Of Care ( /) Start: 02-13-2025 End: 02-14-2025 ambulatory Kandi Woody MA Family [facility] dunbar Start: 02-11-2025 Non-patient / Non-visit Dr. Fifi Vo MD [facility] Work Phone: Start: 02-10-2025 Non-patient / Non-visit Brock Huang nd, DO [facility] Start: 02-10-2025 Non-patient / [facility] Work Phone: Start: 02-10-2025 End: 02-10-2025 Telephone encounter Victor M Rocha MD Work Phone: [facility] Comment on above: [facility] Call Start: 02-09-2025 Non-patient / [facility] Work Phone: Start: 02-09-2025 ambulatory Vinny Root Facility:[facility] Start: 02-09-2025 Non-patient / Non-visit [facility] Du [facility] Start: 02-08-2025 ambulatory Deandre Muñoz ty:[facility] Start: 02-08-2025 End: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 Amber Palafox PA-C Work Phone: Start: 04-26-2014 End: 04-26-2014 Follow Up Appt 6 months Amber Palafox PA-C Work Phone: Start: 04-11-2014 End: 04-11-2014 [...] months Stephen Jerry Start: 10-25-2013 End: 10-25-2013 LORI Root MD Start: 09-29-2013 End: 09-29-2013 Follow Up Appt 6 months Stephen Jerry Start: 09-29-2013 End: 09-29-2013 MMStephen Root MD Start: 07-18-2013 End: 07-29-2013 *Hepatic Function Panel Stephen Jerry Start: 07-18-2013 End: 07-29-2013 Lipid Tio panel - Serum or Plasma Vinny Root MD Start: 07-11-2013 End: 07-11-2013 *Hepatic Function Panel Amber Palafox PA-C Work Phone: Start: 06-01-2013 End: 06-01-2013 *Hepatic Function Panel Amber Palafox PA-C Work Phone: Start: 03-25-2013 End: 05-04-2013 *Hepatic Function Panel Amber Palafox PA-C Work Phone: Start: 03-25-2013 End: 03-25-2013 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 Amber Palafox PA-C Work Phone: Start: 03-25-2013 End: 03-25-2013 Follow Up Appt 6 months Amber Palafox PA-C Work Phone: Start: 03-25-2013 End: 05-04-2013 Lipid Tio panel - Serum or Plasma Amber Palafox PA-C Work Phone: Start: 03-21-2013 End: 03-21-2013 *Hepatic Function Panel Stephen Jerry Start: 03-21-2013 End: 03-25-2013 Lipid Tio panel - Serum or Plasma Vinny Root [...] Hepatitis B surface antibody level LDL Cholesterol [facility] Start: 08-18-2025 Glaucoma screening Dilated Retinal Exam [facility] Start: 08-12-2025 Medicare Annual Wellness Visit Medicare Annual Wellness Visit [facility] Start: 08-09-2025 Hemoglobin A1c measurement HbA1C [facility] Start: 08-08-2025 Hepatitis B surface antibody level LDL Cholesterol [facility] Start: 06-16-2025 End: 06-16-2025 Patient encounter procedure 06/16/2025 12:40 PM EST Office Visit [facility] [address] [place] [id number] Albert Myers MD [address] [place] [id number] est care/3 month f/u [facility] Comment on above: est care/3 month f/u Start: 06-07-2025 End: 09-06-2025 CBC panel - Blood by Automated count COMPLETE BLOOD COUNT Lab Routine Anemia, unspecified type Iron deficiency anemia, unspecified iron deficiency anemia type Expected: 06/07/2025 (Approximate), Expires: 09/06/2025 [facility] Comment on above: Expected: 06/07/2025 (Approximate), Expi res: 09/06/2025 Start: 06-07-2025 End: 09-06-2025 Comprehensive metabolic 2000 panel - Serum or Plasma COMPREHENSIVE METABOLIC PANEL Lab Routine Anemia, unspecified type Iron deficiency anemia, unspecified iron deficiency anemia type Expected: 06/07/2025 (Approximate), Expires: 09/06/2025 [facility] Work Phone: Comment on above: Expected: 06/07/2025 (Approximate), Expi res: 09/06/2025 Start: 06-07-2025 End: 09-06-2025 Hemoglobin A1c in Blood HEMOGLOBIN A1C Lab Routine Type 2 diabetes mellitus with other diabetic kidney complication, without long-term current use of insulin (HCC) Expected: 06/07/2025 (Approximate), Expires: 09/06/2025 [facility] Comment on above: Expected: 06/07/2025 (Approximate), Expi res: 09/06/2025 Start: 06-07-2025 End: 09-06-2025 Iron and Iron binding capacity panel - Serum or Plasma IRON AND TIBC Lab Routine Anemia, unspecified type Iron deficiency anemia, unspecified iron deficiency anemia type Expected: 06/07/2025 (Approximate), Expires: 09/06/2025 [facility] Comment on above: Expected: 06/07/2025 (Approximate), Expi res: 09/06/2025 Start: 06-07-2025 End: 09-06-2025 Lipid 1996 panel - Serum or Plasma LIPID PANEL, FASTING Lab Routine Hyperlipidemia, unspecified hyperlipidemia type Expected: 06/07/2025 (Approximate), Expires: 09/06/2025 [facility] Comment on above: Expected: 06/07/2025 (Approximate), Expi res: 09/06/2025 Start: 06-07-2025 End: 09-06-2025 Thyrotropin [Units/volume] in Serum or Plasma THYROID STIMULATING HORMONE Lab Routine Hypothyroidism, unspecified type Expected: 06/07/2025 (Approximate), Expires: 09/06/2025 [facility] Comment on above: Expected: 06/07/2025 (Approximate), Expi res: 09/06/2025 Start: 04-06-2025 Patient discharge [facility] Start: 04-04-2025 Provision of overbed trapeze [facility] Start: 04-04-2025 End: 04-04-[address] [facility] Start: 04-04-2025 Ambulation therapy management [facility] Start: 04-04-2025 Assessment of risk of venous thromboembolism [facility] Start: 04-04-[address] [facility] Start: 04-04-[address] [facility] Start: 04-04-2025 Following clinical pathway protocol [facility] Start: 04-04-2025 Measuring intake and output [facility] Start: 04-04-2025 Neurovascular assessment [facility] Start: 04-04-2025 Patient education [facility] Start: 04-04-2025 Procedure discontinued [facility] Start: 04-04-2025 Provision of activity privileges [facility] Start: 04-04-2025 Vital signs measurements [facility] Start: 04-04-2025 Wound care [facility] Start: 04-03-2025 Application of intermittent pneumatic compression device [facility] Start: 04-03-2025 Assessment of risk of venous thromboembolism [facility] Start: 04-03-[address] [facility] Start: 04-03-[address] [facility] Start: 04-03-2025 Continuous pulse oximetry [facility] Start: 04-03-2025 Inhalation therapy procedure [facility] Start: 04-03-2025 Insertion of catheter into peripheral vein [facility] Start: 04-03-2025 Measuring intake and output [facility] Start: 04-03-2025 Notification of physician [facility] Start: 04-03-2025 Providing care according to standard [facility] Start: 04-03-2025 Referral for physical therapy [facility] Start: 04-03-2025 Referral to occupational therapist [facility] Start: 04-03-2025 Referral to service [facility] Start: 04-03-2025 End: 04-03-[address] [facility] Start: 04-03-2025 Following clinical pathway protocol [facility] Start: 04-03-2025 Incentive spirometry [facility] Start: 04-03-2025 Recommendation to continue with treatment [facility] Start: 04-03-2025 Admission procedure [facility] Start: 03-13-2025 Influenza vaccination [facility] Start: 03-07-2025 End: 03-07-2025 Patient encounter procedure 03/07/2025 2:20 PM EDT Office Visit [facility] [address] [place] [address] Victor M Rocha MD [address] [place], [place] [id number] 4 week f/u weakness Family [facility] Comment on above: 4 week f/u weakness Start: 02-24-2025 End: 02-24-2025 Patient encounter procedure 02/24/2025 1:25 PM EDT Office Visit [facility] [address] [facility] [place] [phone] Shara Agarwal PA-C [address] [facility] [address] [place], [place] [id number] Anemia, unspecified type [D64.9]; Positive fecal occult blood test [R19.5] [facility] [place] Comment on above: Anemia, unspecified type [D64.9]; Positi ve fecal occult blood test [R19.5] Start: 02-14-2025 End: 02-14-2025 Patient encounter procedure 02/14/2025 1:00 PM EDT Office Visit [facility] [address] [place], [place] [address] Sharlene Cherry APRN.YARN DUMPER [address] [place] [address] [facility] Hosp follow up D/C 02/10/25 SOB [facility] Comment on above: [facility] Hosp follow up D/C 02/10/25 SOB Start: 02-10-2025 Patient discharge [facility] Start: 02-10-2025 Referral to gastroenterology service [facility] Start: 02-09-[address] [facility] Start: 02-09-2025 End: 05-11-2025 CBC W Auto Differential panel - Blood COMPLETE BLOOD COUNT AND DIFFERENTIAL Lab Routine Essential hypertension, benign Type 2 diabetes mellitus with other diabetic kidney complication, without long-term current use of insulin (HCC) Expected: 02/09/2025 (Approximate), Expires: 05/11/2025 [facility] Comment on above: Expected: 02/09/2025 (Approximate), Expi res: 05/11/2025 Start: 02-09-2025 End: 05-11-2025 Comprehensive metabolic 2000 panel - Serum or Plasma COMPREHENSIVE METABOLIC PANEL Lab Routine Essential hypertension, benign Type 2 diabetes mellitus with other diabetic kidney complication, without long-term current use of insulin (HCC) Expected: 02/09/2025 (Approximate), Expires: 05/11/2025 [facility] Work Phone: Comment on above: Expected: 02/09/2025 (Approximate), Expi res: 05/11/2025 Start: 02-09-2025 End: 05-11-2025 Hemoglobin A1c in Blood HEMOGLOBIN A1C Lab Routine Type 2 diabetes mellitus with other diabetic kidney complication, without long-term current use of insulin (HCC) Expected: 02/09/2025 (Approximate), Expires: 05/11/2025 [facility] Comment on above: Expected: 02/09/2025 (Approximate), Expi res: 05/11/2025 Start: 02-09-2025 End: 05-11-2025 Lipid 1996 panel - Serum or Plasma LIPID PANEL BASIC Lab Routine Hyperlipidemia, unspecified hyperlipidemia type Type 2 diabetes mellitus with other diabetic kidney complication, without long-term current use of insulin (HCC) Expected: 02/09/2025 (Approximate), Expires: 05/11/2025 [facility] Comment on above: Expected: 02/09/2025 (Approximate), Expi res: 05/11/2025 Start: 02-09-2025 End: 05-11-2025 Thyrotropin [Units/volume] in Serum or Plasma THYROID STIMULATING HORMONE Lab Routine Hypothyroidism, unspecified type Expected: 02/09/2025 (Approximate), Expires: 05/11/2025 [facility] Comment on above: Expected: 02/09/2025 (Approximate), Expi res: 05/11/2025 Start: 02-09-2025 Referral to service [facility] Start: 02-09-2025 Speech therapy assessment [facility] Start: 02-09-2025 Following clinical pathway protocol [facility] Start: 02-08-2025 Assessment of risk of venous thromboembolism [facility] Start: 02-08-[address] [facility] Start: 02-08-[address] [facility] Start: 02-08-2025 Insertion of catheter into peripheral vein [facility] Start: 02-08-2025 Measuring intake and output [facility] Start: 02-08-2025 Notification of physician [facility] Start: 02-08-2025 Oxygen therapy [facility] Start: 02-08-2025 Providing care according to standard [facility] Start: 02-08-2025 Provision of activity privileges [facility] Start: 02-08-2025 Referral for physical therapy [facility] Start: 02-08-2025 Referral to occupational therapist [facility] Start: 02-08-2025 Referral to service [facility] Start: 02-08-2025 End: 02-08-[address] [facility] Start: 02-08-2025 Verification routine [facility] Start: 02-08-2025 Admission procedure [facility] Start: 02-08-2025 Hospital admission, emergency, from emergency room, medical nature [facility] Start: 02-08-[address] [facility] Start: 02-08-[address] [facility] Start: 02-06-2025 End: 05-08-2025 Comprehensive metabolic 2000 panel - Serum or Plasma [facility] Comment on above: Expected: 02/06/2025, Expires: Start: 02-06-2025 End: 05-08-2025 Hemoglobin A1c in Blood [facility] Comment on above: Expected: 02/06/2025, Expires: Start: 02-06-2025 End: 05-08-2025 LIPID PANEL, NONFASTING [facility] Comment on above: Expected: 02/06/2025, Expires: Start: 02-06-2025 End: 05-08-2025 Natriuretic peptide.B prohormone N-Terminal [Mass/volume] in Serum or Plasma [facility] Comment on above: Expected: 02/06/2025, Expires: Start: 02-06-2025 End: 05-08-2025 Thyrotropin [Units/volume] in Serum or Plasma [facility] Work Phone: Comment on above: Expected: 02/06/2025, Expires: Start: 02-06-2025 End: 05-08-2025 Urinalysis complete panel - Urine URINALYSIS (WITH MICROSCOPIC) WITH CULTURE IF INDICATED Lab Routine Generalized weakness Expected: 02/06/2025, Expires: 05/08/2025 [facility] Comment on above: Expected: 02/06/2025, Expires: Start: 02-06-2025 End: 02-06-2025 Patient encounter procedure 02/06/2025 11:00 AM EDT Office Visit [facility] [address] [place] [address] Carlos House, 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 DYEING MACHINE OPERATOR.[facility] [address] [place] [address] 6 month follow up [facility] Nader [facility] Comment on above: 6 month follow up Start: 02-05-2025 Hemoglobin A1c measurement HbA1C [facility] Start: 10-29-2024 Covid-19 Vaccine ( season) Covid-19 Vaccine () [facility] Comment on above: Postponed from 03/13/2023 (Declined at t his time) Start: 10-22-2024 Hepatitis B screening Urine Albumin:Creatinine Ratio [facility] Start: 10-22-2024 Hepatitis B surface antibody level LDL Cholesterol [facility] Start: 09-08-2024 Glaucoma screening Dilated Retinal Exam [facility] Start: 08-05-2024 End: 08-05-2024 Patient encounter procedure 08/05/2024 12:40 PM EST Office Visit [facility] N[facility]az[facility] [address] [place], [place] [id number] Carlos House APRN.YARN DUMPER [address] [place] [place], [place] [id number] 6 month follow up [facility] Nader Bazan Comment on above: 6 month follow up Start: 08-03-2024 End: 11-02-2024 CBC panel - Blood by Automated count COMPLETE BLOOD COUNT Lab Routine Chronic diastolic CHF (congestive heart failure) (HCC) MGUS (monoclonal gammopathy of unknown significance) Iron deficiency anemia, unspecified iron deficiency anemia type Expected: 08/03/2024 (Approximate), Expires: 11/02/2024 [facility] Comment on above: Expected: 08/03/2024 (Approximate), Expi res: 11/02/2024 Start: 08-03-2024 End: 11-02-2024 Comprehensive metabolic 2000 panel - Serum or Plasma COMPREHENSIVE METABOLIC PANEL Lab Routine Hyperlipidemia, unspecified hyperlipidemia type Type 2 diabetes mellitus with other diabetic kidney complication, without long-term current use of insulin (HCC) Expected: 08/03/2024 (Approximate), Expires: 11/02/2024 [facility] Comment on above: Expected: 08/03/2024 (Approximate), Expi res: 11/02/2024 Start: 08-03-2024 End: 11-02-2024 Hemoglobin A1c in Blood HEMOGLOBIN A1C Lab Routine Type 2 diabetes mellitus with other diabetic kidney complication, without long-term current use of insulin (HCC) Expected: 08/03/2024 (Approximate), Expires: 11/02/2024 [facility] Comment on above: Expected: 08/03/2024 (Approximate), Expi res: 11/02/2024 Start: 08-03-2024 End: 11-02-2024 Lipid 1996 panel - Serum or Plasma LIPID PANEL BASIC Lab Routine Hyperlipidemia, unspecified hyperlipidemia type Expected: 08/03/2024 (Approximate), Expires: 11/02/2024 [facility] Work Phone: Comment on above: Expected: 08/03/2024 (Approximate), Expi res: 11/02/2024 Start: 08-03-2024 End: 11-02-2024 Thyrotropin [Units/volume] in Serum or Plasma THYROID STIMULATING HORMONE Lab Routine Hypothyroidism, unspecified type Expected: 08/03/2024 (Approximate), Expires: 11/02/2024 [facility] Comment on above: Expected: 08/03/2024 (Approximate), Expi res: 11/02/2024 Start: 07-29-2024 Hemoglobin A1c measurement HbA1C [facility] Start: 04-28-2024 Shingrix Vaccine (1 of 2) Shingrix Vaccine (1 of 2) [facility] Comment on above: Postponed from 1989 (Declined at t his time) Start: 04-23-2024 Hemoglobin A1c measurement HbA1C [facility] Start: 04-21-2024 Hepatitis B surface antibody level LDL Cholesterol [facility] Start: 04-18-2024 End: 04-18-2024 Patient encounter procedure Mobile [facility] Comment on above: MGUS (monoclonal gammopathy of unknown s ignificance) [D47.2]; Compression fracture of thoracic vertebra, unspecified thoracic vertebral level, initial encounter (FORMERLY MARY BLACK [facility] [place] [S22.000A]; Lytic bone lesions on xray [M89.9] Start: 04-14-2024 End: 04-14-2024 ambulatory [facility] Comment on above: CBC* CBC/BMBX/PBSX2* Start: 04-06-2024 End: 04-06-2024 Patient encounter procedure 04/06/2024 11:40 AM EDT Office Visit [facility] [address] [place] [address] Yovana Painter APRN.[employer]ARN [employer]MPER [address] [place] [address] 03/29 follow up from [facility] for CHF [facility] Comment on above: 03/29 follow up from [facility] for CHF Start: 04-01-2024 End: 04-01-2024 ambulatory 04/01/2024 8:40 AM EDT Visit (SP) Office Hematology/Oncology [address] [place] [address] Elizabet Baker, [address] [place] [address] OV* Hematology/Oncology Comment on above: OV* Start: 03-25-2024 End: 03-25-2024 ambulatory 03/25/2024 9:20 AM EDT Visit (SP) Office Hematology/Oncology [address] [place] [address] Elizabet Baker, DO [address] [place] [address] OV/CT 03/12* Hematology/Oncology Comment on above: OV/CT 03/12* Start: 03-13-2024 Covid-19 Vaccine ( season) Covid-19 Vaccine ( season) [facility] Start: 03-13-2024 Covid-19 Vaccine ( season) Covid-19 Vaccine ( season) [facility] Start: 03-13-2024 Influenza vaccination Influenza Vaccine (#1) [facility] Start: 03-12-2024 End: 03-12-2024 Patient encounter procedure 03/12/2024 3:30 PM EDT Appointment Radiology CT Scan [address] [facility] [place] [address] [place] [address] MGUS (monoclonal gammopathy of unknown significance) [D47.2] Radiology CT Scan Comment on above: MGUS (monoclonal gammopathy of unknown s ignificance) [D47.2] Start: 02-26-2024 End: 02-26-2024 ambulatory 02/26/2024 11:00 AM EDT Visit (SP) Office Hematology/Oncology [address] [place] [address] Elizabet Baker DO [address] [place] [address] 2 MO OV/LABS 02/23* Hematology/Oncology Comment on above: 2 MO OV/LABS 02/23* Start: 02-24-2024 End: 02-24-2024 ambulatory 02/24/2024 11:00 AM EDT Results Only [facility] [address] [place] [address] CBC/CMP/IRON STUDIES* [facility] Comment on above: CBC/CMP/IRON STUDIES* Start: 02-01-2024 End: 02-01-2024 Patient encounter procedure 02/01/2024 12:40 PM EDT Office Visit Family [facility] [address] [place] [address] Victor M Rocha MD [address] [place] [address] 3 month follow up [facility] Comment on above: 3 month follow up Start: 01-29-2024 End: 04-29-2024 Basic metabolic 2000 panel - Serum or Plasma BASIC METABOLIC PANEL Lab Routine Type 2 diabetes mellitus with other diabetic kidney complication, without long-term current use of insulin (HCC) Expected: 01/29/2024 (Approximate), Expires: 04/29/2024 [facility] Work Phone: Comment on above: Expected: 01/29/2024 (Approximate), Expi res: 04/29/2024 Start: 01-29-2024 End: 04-29-2024 CBC W Auto Differential panel - Blood COMPLETE BLOOD COUNT AND DIFFERENTIAL Lab Routine MGUS (monoclonal gammopathy of unknown significance) Iron deficiency anemia, unspecified iron deficiency anemia type Fatigue, unspecified type Generalized weakness SOB (shortness of breath) Expected: 01/29/2024 (Approximate), Expires: 04/29/2024 [facility] Work Phone: Comment on above: Expected: 01/29/2024 (Approximate), Expi res: 04/29/2024 Start: 01-29-2024 End: 04-29-2024 Hemoglobin A1c in Blood HEMOGLOBIN A1C Lab Routine Type 2 diabetes mellitus with other diabetic kidney complication, without long-term current use of insulin (HCC) Expected: 01/29/2024 (Approximate), Expires: 04/29/2024 [facility] Work Phone: Comment on above: Expected: 01/29/2024 (Approximate), Expi res: 04/29/2024 Start: 01-29-2024 End: 04-29-2024 Thyrotropin [Units/volume] in Serum or Plasma THYROID STIMULATING HORMONE Lab Routine Hypothyroidism, unspecified type Expected: 01/29/2024 (Approximate), Expires: 04/29/2024 [facility] Work Phone: Comment on above: Expected: 01/29/2024 (Approximate), Expi res: 04/29/2024 Start: 12-24-2023 End: 12-24-2023 Patient encounter procedure 12/24/2023 3:40 PM EDT Office Visit [facility] [address] [place] [address] Victor M Rocha MD [address] [facility] [place] [id number] Hospital follow up, [facility] 12/16/23 [facility] [place] Comment on above: Hospital follow up, [facility] 12/16/23 CHF Start: 12-14-2023 End: 12-14-2023 ambulatory [facility] Comment on above: CBC/RETIC/IRON STUDIES* CBC/RETIC/IRON STUDI ES/IRON SUCROSE/D5-5/MDCR* Start: 12-11-2023 End: 12-11-2023 ambulatory 12/11/2023 2:30 PM EDT Infusion Center Hematology/Oncology [address] [place] [address] IRON SUCROSE/D4-5/MDCR* Hematology/Oncology Comment on above: IRON SUCROSE/D4-5/MDCR* Start: 12-09-2023 End: 12-09-2023 ambulatory 12/09/2023 1:30 PM EDT Infusion Center Hematology/Oncology [address] [place] [address] IRON SUCROSE/D3-5/MDCR* Hematology/Oncology Comment on above: IRON SUCROSE/D3-5/MDCR* Start: 12-02-2023 End: 12-02-2023 ambulatory 12/02/2023 2:00 PM EDT Infusion Center Hematology/Oncology [address] [place] [address] IRON SUCROSE/D2-5/MDCR* Hematology/Oncology Comment on above: IRON SUCROSE/D2-5/MDCR* Start: 11-26-2023 End: 11-26-2023 ambulatory 11/26/2023 3:30 PM EDT Infusion Center Hematology/Oncology [address] [place] [address] START IRON SUCROSE/D1-5/MDCR* Hematology/Oncology Comment on above: START IRON SUCROSE/D1-5/MDCR* Start: 11-17-2023 End: 02-16-2024 MONOCLONAL PROTEIN, SERUM (BLOOD) [facility] Comment on above: Expected: 11/17/2023, Expires: Start: 11-17-2023 End: 02-16-2024 PROTEIN ELECTROPHORESIS SERUM W/INTERP [facility] Work Phone: Comment on above: Expected: 11/17/2023, Expires: Start: 10-28-2023 End: 01-27-2024 ALBUMIN/CREAT RATIO RND UR ALBUMIN/CREAT RATIO RND UR Lab Routine Type 2 diabetes mellitus with other diabetic kidney complication, without long-term current use of insulin (HCC) Expected: 10/28/2023 (Approximate), Expires: 01/27/2024 [facility] Work Phone: Comment on above: Expected: 10/28/2023 (Approximate), Expi res: 01/27/2024 Start: 10-28-2023 End: 01-27-2024 CBC W Auto Differential panel - Blood CBC + DIFF Lab Routine Iron deficiency anemia, unspecified iron deficiency anemia type Expected: 10/28/2023 (Approximate), Expires: 01/27/2024 [facility] Work Phone: Comment on above: Expected: 10/28/2023 (Approximate), Expi res: 01/27/2024 Start: 10-28-2023 End: 01-27-2024 Comprehensive metabolic 2000 panel - Serum or Plasma COMP METABOLIC PANEL Lab Routine Essential hypertension, benign Hyperlipidemia, unspecified hyperlipidemia type Type 2 diabetes mellitus with other diabetic kidney complication, without long-term current use of insulin (HCC) Stage 3a chronic kidney disease (HCC) Expected: 10/28/2023 (Approximate), Expires: 01/27/2024 [facility] Work Phone: Comment on above: Expected: 10/28/2023 (Approximate), Expi res: 01/27/2024 Start: 10-28-2023 End: 01-27-2024 Hemoglobin A1c in Blood HGB A1C Lab Routine Type 2 diabetes mellitus with other diabetic kidney complication, without long-term current use of insulin (HCC) Expected: 10/28/2023 (Approximate), Expires: 01/27/2024 [facility] Work Phone: Comment on above: Expected: 10/28/2023 (Approximate), Expi res: 01/27/2024 Start: 10-28-2023 End: 01-27-2024 Lipid 1996 panel - Serum or Plasma LIPID PANEL BASIC Lab Routine Essential hypertension, benign Hyperlipidemia, unspecified hyperlipidemia type Type 2 diabetes mellitus with other diabetic kidney complication, without long-term current use of insulin (HCC) Expected: 10/28/2023 (Approximate), Expires: 01/27/2024 [facility] Work Phone: Comment on above: Expected: 10/28/2023 (Approximate), Expi res: 01/27/2024 Start: 10-28-2023 End: 01-27-2024 Thyrotropin [Units/volume] in Serum or Plasma TSH BLD Lab Routine Hypothyroidism, unspecified type Expected: 10/28/2023 (Approximate), Expires: 01/27/2024 [facility] Work Phone: Comment on above: Expected: 10/28/2023 (Approximate), Expi res: 01/27/2024 Start: 10-21-2023 Hemoglobin A1c measurement HbA1C [facility] Start: 10-21-2023 Hemoglobin A1c/Hemoglobin.total in Blood HbA1C [facility] Start: 10-18-2023 Hepatitis B surface antibody level LDL CHOLESTEROL [facility] Start: 09-09-2023 End: 11-09-2023 CBC W Auto Differential panel - Blood CBC + DIFF Lab Routine MGUS (monoclonal gammopathy of unknown significance) Expected: 09/09/2023, Expires: 11/09/2023 [facility] Work Phone: Comment on above: Expected: 09/09/2023, Expires: Start: 09-09-2023 End: 11-09-2023 Comprehensive metabolic 2000 panel - Serum or Plasma COMP METABOLIC PANEL Lab Routine MGUS (monoclonal gammopathy of unknown significance) Expected: 09/09/2023, Expires: 11/09/2023 [facility] Work Phone: Comment on above: Expected: 09/09/2023, Expires: Start: 09-09-2023 End: 11-09-2023 [place],FREE,SER [place]PA/[place],FREE,SER Lab Routine MGUS (monoclonal gammopathy of unknown significance) Expected: 09/09/2023, Expires: 11/09/2023 [facility] Work Phone: Comment on above: Expected: 09/09/2023, Expires: Start: 09-09-2023 End: 11-09-2023 PROT, TOT AND PROT ELECTRO W/ IMMUNOFIX PROT, TOT AND PROT ELECTRO W/ IMMUNOFIX Lab Routine MGUS (monoclonal gammopathy of unknown significance) Expected: 09/09/2023, Expires: 11/09/2023 [facility] Work Phone: Comment on above: Expected: 09/09/2023, Expires: Start: 07-13-2023 Advance Directive Discussion Advance Directive Discussion [facility] Start: 06-15-2023 End: 06-15-[address] [facility] Start: 05-15-2023 Glaucoma screening Dilated Retinal Exam [facility] Start: 05-15-2023 Hepatitis C antibody, confirmatory test DILATED RETINAL EXAM [facility] Start: 04-25-2023 End: 06-25-2023 CBC panel - Blood by Automated count CBC Lab Routine Essential hypertension, benign Iron deficiency anemia, unspecified iron deficiency anemia type Expected: 04/25/2023 (Approximate), Expires: 06/25/2023 [facility] Work Phone: Comment on above: Expected: 04/25/2023 (Approximate), Expi res: 06/25/2023 Start: 04-25-2023 End: 06-25-2023 Comprehensive metabolic 2000 panel - Serum or Plasma COMP METABOLIC PANEL Lab Routine Hyperlipidemia, unspecified hyperlipidemia type Essential hypertension, benign Type 2 diabetes mellitus with other diabetic kidney complication, without long-term current use of insulin (HCC) Expected: 04/25/2023 (Approximate), Expires: 06/25/2023 [facility] Work Phone: Comment on above: Expected: 04/25/2023 (Approximate), Expi res: 06/25/2023 Start: 04-25-2023 End: 06-25-2023 Hemoglobin A1c in Blood HGB A1C Lab Routine Type 2 diabetes mellitus with other diabetic kidney complication, without long-term current use of insulin (HCC) Expected: 04/25/2023 (Approximate), Expires: 06/25/2023 [facility] Work Phone: Comment on above: Expected: 04/25/2023 (Approximate), Expi res: 06/25/2023 Start: 04-25-2023 End: 06-25-2023 Lipid 1996 panel - Serum or Plasma LIPID PANEL BASIC Lab Routine Hyperlipidemia, unspecified hyperlipidemia type Essential hypertension, benign Type 2 diabetes mellitus with other diabetic kidney complication, without long-term current use of insulin (HCC) Expected: 04/25/2023 (Approximate), Expires: 06/25/2023 [facility] Work Phone: Comment on above: Expected: 04/25/2023 (Approximate), Expi res: 06/25/2023 Start: 04-25-2023 End: 06-25-2023 Thyrotropin [Units/volume] in Serum or Plasma TSH BLD Lab Routine Hypothyroidism, unspecified type Expected: 04/25/2023 (Approximate), Expires: 06/25/2023 [facility] Work Phone: Comment on above: Expected: 04/25/2023 (Approximate), Expi res: 06/25/2023 Start: 04-17-2023 Hepatitis B surface antibody level LDL CHOLESTEROL [facility] Start: 03-13-2023 Covid-19 Vaccine () Covid-19 Vaccine () [facility] Start: 01-16-2023 Hemoglobin A1c/Hemoglobin.total in Blood HBA1C [facility] Start: 01-10-2023 Hepatitis B screening URINE ALBUMIN:CREATININE RATIO [facility] Start: 09-27-2022 Hepatitis B surface antibody level LDL CHOLESTEROL [facility] Start: 07-18-2022 Hemoglobin A1c/Hemoglobin.total in Blood HBA1C [facility] Start: 07-13-2022 ADVANCE DIRECTIVE DISCUSSION ADVANCE DIRECTIVE DISCUSSION [facility] Start: 05-17-2022 COVID-19 VACCINE (4 - Booster for Pfizer series) COVID-19 VACCINE (4 - Booster for Pfizer series) [facility] Start: 04-16-2022 End: 06-16-2022 Comprehensive metabolic 2000 panel - Serum or Plasma COMP METABOLIC PANEL Lab Routine Hyperlipidemia, unspecified hyperlipidemia type Coronary artery disease involving [place] coronary artery of [place] heart without angina pectoris Expected: 04/16/2022 (Approximate), Expires: 06/16/2022 [facility] Work Phone: Comment on above: Expected: 04/16/2022 (Approximate), Expi res: 06/16/2022 Start: 04-16-2022 End: 06-16-2022 Hemoglobin A1c in Blood HGB A1C Lab Routine Type 2 diabetes mellitus with other diabetic kidney complication, without long-term current use of insulin (HCC) Expected: 04/16/2022 (Approximate), Expires: 06/16/2022 [facility] Work Phone: Comment on above: Expected: 04/16/2022 (Approximate), Expi res: 06/16/2022 Start: 04-16-2022 End: 06-16-2022 Lipid 1996 panel - Serum or Plasma LIPID PANEL BASIC Lab Routine Hyperlipidemia, unspecified hyperlipidemia type Coronary artery disease involving [place] coronary artery of [place] heart without angina pectoris Expected: 04/16/2022 (Approximate), Expires: 06/16/2022 [facility] Work Phone: Comment on above: Expected: 04/16/2022 (Approximate), Expi res: 06/16/2022 Start: 04-16-2022 End: 06-16-2022 Thyrotropin [Units/volume] in Serum or Plasma TSH BLD Lab Routine Hypothyroidism, unspecified type Expected: 04/16/2022 (Approximate), Expires: 06/16/2022 [facility] Work Phone: Comment on above: Expected: 04/16/2022 (Approximate), Expi res: 06/16/2022 Start: 04-12-2022 Hemoglobin A1c/Hemoglobin.total in Blood HBA1C [facility] Start: 03-13-2022 Influenza vaccination INFLUENZA (#1) [facility] Start: 03-11-2022 COVID-19 VACCINE (4 - Booster for Pfizer series) COVID-19 VACCINE (4 - Booster for Pfizer series) [facility] Start: 01-10-2022 End: 03-12-2022 ALBUMIN/CREAT RATIO RND UR ALBUMIN/CREAT RATIO RND UR Lab Routine Type 2 diabetes mellitus with other diabetic kidney complication, without long-term current use of insulin (HCC) Expected: 01/10/2022 (Approximate), Expires: 03/12/2022 [facility] Work Phone: Comment on above: Expected: 01/10/2022 (Approximate), Expi res: 03/12/2022 Start: 01-10-2022 End: 03-12-2022 Basic metabolic 2000 panel - Serum or Plasma BASIC METABOLIC PNL Lab Routine Type 2 diabetes mellitus with other diabetic kidney complication, without long-term current use of insulin (HCC) Expected: 01/10/2022 (Approximate), Expires: 03/12/2022 [facility] Work Phone: Comment on above: Expected: 01/10/2022 (Approximate), Expi res: 03/12/2022 Start: 01-10-2022 End: 03-12-2022 Hemoglobin A1c/Hemoglobin.total in Blood HGB A1C Lab Routine Type 2 diabetes mellitus with other diabetic kidney complication, without long-term current use of insulin (HCC) Expected: 01/10/2022 (Approximate), Expires: 03/12/2022 [facility] Work Phone: Comment on above: Expected: 01/10/2022 (Approximate), Expi res: 03/12/2022 Start: 12-28-2021 Hemoglobin A1c/Hemoglobin.total in Blood HBA1C [facility] Start: 10-22-2021 Hepatitis C antibody, confirmatory test DILATED RETINAL EXAM [facility] Start: 09-17-2021 3 comp foot exam completed DIABETIC FOOT EXAM [facility] Start: 09-17-2021 Diabetic foot examination Diabetic Foot Exam [facility] Start: 09-14-2021 Hepatitis B screening URINE ALBUMIN:CREATININE RATIO [facility] Start: 02-03-2021 COVID-19 VACCINE (3 - Booster for Pfizer series) COVID-19 VACCINE (3 - Booster for Pfizer series) [facility] Start: 10-04-2018 Urine microalbumin profile [facility] Start: 12-03-2017 End: 12-03-2017 Appointment Appointment [facility] Work Phone: Start: 06-26-2017 End: 06-26-2017 Appointment Appointment [facility] Work Phone: Start: 05-26-2017 End: 05-26-2017 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 [facility] Work Phone: Start: 05-26-2017 End: 05-26-2017 Follow Up Appt 6 months Follow Up Appt 6 months [facility] Work Phone: Start: 05-26-2017 End: 05-26-2017 Follow Up Appt Other Follow Up Appt Other [facility] Work Phone: Start: 03-20-2017 End: 05-14-2017 Follow Up Appt 3 months Follow Up Appt 3 months [facility] Work Phone: Start: 03-20-2017 End: 05-14-2017 Pacer Clinic [facility] Work Phone: Start: 12-11-2016 End: 05-14-2017 Follow Up Appt 3 months Follow Up Appt 3 months [facility] Work Phone: Start: 12-11-2016 End: 05-14-2017 Pacer Clinic [facility] Work Phone: Start: 11-21-2016 End: 05-14-2017 Follow Up Appt 6 months Follow Up Appt 6 months [facility] Work Phone: Start: 11-21-2016 End: 05-14-2017 MMM MMM [facility] Work Phone: Start: 09-03-2016 End: 05-14-2017 Follow Up Appt 3 months Follow Up Appt 3 months [facility] Work Phone: Start: 09-03-2016 End: 05-14-2017 Pacer Clinic [facility] Work Phone: Start: 08-18-2016 End: 05-26-2017 *Hepatic Function Panel *Hepatic Function Panel [facility] Work Phone: Start: 08-18-2016 End: 05-26-2017 Lipid panel [AGGREGATE] *Lipid Profile CC PCP [facility] Work Phone: Start: 05-23-2016 End: 08-07-2016 Follow Up Appt 3 months Follow Up Appt 3 months [facility] Work Phone: Start: 05-23-2016 End: 08-07-2016 Pacer Clinic [facility] Work Phone: Start: 05-15-2016 End: 05-15-2016 Follow Up Appt 6 months Follow Up Appt 6 months [facility] Work Phone: Start: 05-15-2016 End: 05-15-2016 MMM MMM [facility] Work Phone: Start: 04-22-2016 End: 08-07-2016 Follow Up Appt 1 month Follow Up Appt 1 month [facility] Work Phone: Start: 04-22-2016 End: 08-07-2016 Pacer Clinic [facility] Clinic [facility] Work Phone: Start: 04-03-2016 End: 04-04-2016 *BMP *BMP [facility] Work Phone: Start: 02-19-2016 End: 02-19-2016 Follow Up Appt 6 months Follow Up Appt 6 months [facility] Work Phone: Start: 02-19-2016 End: 02-19-2016 MMM MMM [facility] Work Phone: Start: 02-12-2016 End: 02-14-2016 *Hepatic Function Panel *Hepatic Function Panel [facility] Work Phone: Start: 02-12-2016 End: 02-14-2016 Lipid panel [AGGREGATE] *Lipid Profile CC PCP [facility] Work Phone: Start: 01-21-2016 End: 01-22-2016 CBC W Auto Differential panel - Blood *CBC without Diff [facility] Work Phone: Start: 01-21-2016 End: 02-14-2016 Follow Up Appt 3 months Follow Up Appt 3 months [facility] Work Phone: Start: 01-21-2016 End: 02-14-2016 Pacer Clinic Pacer Clinic [facility] Work Phone: Start: 01-02-2016 End: 02-14-2016 Follow Up Appt 3 months Follow Up Appt 3 months [facility] Work Phone: Start: 01-02-2016 End: 02-14-2016 Pacer Clinic [facility] Work Phone: Start: 11-10-2015 End: 11-12-2015 Thyroid stimulating hormone (TSH) *TSH [facility] Work Phone: Start: 11-10-2015 End: 11-12-2015 Thyroxine (T4) *T4 (Total) [facility] Work Phone: Start: 10-31-2015 [...] 3 months Follow Up Appt 3 months [facility] Work Phone: Start: 10-29-2015 End: 02-14-2016 Pacer Clinic [facility] Work Phone: Start: 09-26-2015 End: 09-26-2015 *BMP *BMP [facility] Work Phone: Start: 09-26-2015 End: 09-26-2015 *CBC with Differential *CBC with Differential [facility] Work Phone: Start: 09-26-2015 End: 09-26-2015 BNP *Brain Natriuretic Peptide BNP [facility] Work Phone: Start: 09-26-2015 End: 02-14-2016 Chest x-ray X-Ray, Chest, PA & Lateral [facility] Work Phone: Start: 09-26-2015 End: 02-14-2016 Follow Up Appt 3 months Follow Up Appt 3 months [facility] Work Phone: Start: 09-26-2015 End: 09-26-2015 Follow Up Appt Other Follow Up Appt Other [facility] Work Phone: Start: 09-26-2015 End: 02-14-2016 Pacer Clinic Pacer Clinic [facility] Work Phone: Start: 09-25-2015 End: 09-25-2015 Thyroid stimulating hormone (TSH) *TSH [facility] Work Phone: Start: 09-25-2015 End: 09-25-2015 Thyroxine (T4) *T4 (Total) [facility] Work Phone: Start: 08-13-2015 End: 08-15-2015 *Hepatic Function Panel *Hepatic Function Panel [facility] Work Phone: Start: 08-13-2015 End: 08-15-2015 Lipid panel [AGGREGATE] *Lipid Profile CC PCP [facility] Work Phone: Start: 08-10-2015 End: 08-14-2015 *BMP *BMP [facility] Work Phone: Start: 08-10-2015 End: 08-14-2015 *Hepatic Function Panel *Hepatic Function Panel [facility] Work Phone: Start: 08-10-2015 End: 08-10-2015 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 [facility] Work Phone: Start: 08-10-2015 End: 08-10-2015 Follow Up Appt 6 months Follow Up Appt 6 months [facility] Work Phone: Start: 08-10-2015 End: 08-14-2015 Lipid panel [AGGREGATE] *Lipid Profile CC PCP [facility] Work Phone: Start: 08-10-2015 End: 08-10-2015 Pulmonary Function Test - complete Pulmonary Function Test - complete [facility] Work Phone: Start: 08-10-2015 End: 08-14-2015 Thyroid stimulating hormone (TSH) *TSH [facility] Work Phone: Start: 08-10-2015 End: 08-14-2015 Thyroxine (T4) *T4 (Total) [facility] Work Phone: Start: 06-15-2015 End: 07-26-2015 Follow Up Appt 3 months Follow Up Appt 3 months [facility] Work Phone: Start: 06-15-2015 End: 07-26-2015 Pacer Clinic Pacer Clinic [facility] Work Phone: Start: 05-08-2015 End: 07-26-2015 Follow Up Appt 3 months Follow Up Appt 3 months [facility] Work Phone: Start: 05-08-2015 End: 07-26-2015 MMM MMM [facility] Work Phone: Start: 04-30-2015 End: 04-30-2015 Arterial exam Arterial exam [facility] Work Phone: Start: 04-30-2015 End: 07-26-2015 Follow Up Appt 1 month Follow Up Appt 1 month [facility] Work Phone: Start: 04-30-2015 End: 07-26-2015 Pacer Clinic Pacer Clinic [facility] Work Phone: Start: 04-30-2015 End: 04-30-2015 Venous doppler Venous doppler [facility] Work Phone: Start: 04-17-2015 End: 04-17-2015 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 [facility] Work Phone: Start: 04-17-2015 End: 04-17-2015 Follow Up Appt 1 month Follow Up Appt 1 month [facility] Work Phone: Start: 03-20-2015 End: 03-20-2015 *BMP *BMP [facility] Work Phone: Start: 03-20-2015 End: 03-20-2015 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 [facility] Work Phone: Start: 03-20-2015 End: 03-20-2015 Ecg routine ecg w/least 12 lds w/i&r EKG (In office) [facility] Work Phone: Start: 03-20-2015 End: 03-20-2015 Follow Up Appt 6 months Follow Up Appt 6 months [facility] Work Phone: Start: 03-20-2015 End: 03-20-2015 Magnesium *Magnesium [facility] Work Phone: Start: 03-20-2015 End: 03-20-2015 Thyroid stimulating hormone (TSH) *TSH [facility] Work Phone: Start: 11-17-2014 End: 02-13-2015 *CBC with Differential *CBC with Differential [facility] Work Phone: Start: 11-17-2014 End: 02-13-2015 *Hepatic Function Panel *Hepatic Function Panel [facility] Work Phone: Start: 11-17-2014 End: 11-17-2014 Follow Up Appt 4 months Follow Up Appt 4 months [facility] Work Phone: Start: 11-17-2014 End: 02-13-2015 Lipid panel [AGGREGATE] *Lipid Profile CC PCP [facility] Work Phone: Start: 11-17-2014 End: 11-17-2014 MMM MMM [facility] Work Phone: Start: 11-09-2014 End: 11-15-2014 *Hepatic Function Panel *Hepatic Function Panel [facility] Work Phone: Start: 11-09-2014 End: 11-09-2014 Follow Up Appt 6 months Follow Up Appt 6 months [facility] Work Phone: Start: 11-09-2014 End: 11-15-2014 Lipid panel [AGGREGATE] *Lipid Profile CC PCP [facility] Work Phone: Start: 11-09-2014 End: 11-09-2014 MMM MMM [facility] Work Phone: Start: 08-11-2014 End: 02-13-2015 *Hepatic Function Panel *Hepatic Function Panel [facility] Work Phone: Start: 08-11-2014 End: 02-13-2015 Lipid panel [AGGREGATE] *Lipid Profile CC PCP [facility] Work Phone: Start: 2014 RSV Vaccine (1 - 1-dose 75+ series) RSV Vaccine (1 - 1-dose 75+ series) [facility] Start: 05-12-2014 End: 05-26-2014 *BMP *BMP [facility] Work Phone: Start: 04-26-2014 End: 04-26-2014 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 [facility] Work Phone: Start: 04-26-2014 End: 04-26-2014 Follow Up Appt 6 months Follow Up Appt 6 months [facility] Work Phone: Start: 04-12-2014 End: 04-11-2014 *Hepatic Function Panel *Hepatic Function Panel [facility] Work Phone: Start: 04-12-2014 End: 04-11-2014 Lipid panel [AGGREGATE] *Lipid Profile CC PCP [facility] Work Phone: Start: 01-09-2014 End: 01-09-2014 *Hepatic Function Panel *Hepatic Function Panel [facility] Work Phone: Start: 01-09-2014 End: 01-09-2014 Lipid panel [AGGREGATE] *Lipid Profile CC PCP [facility] Work Phone: Start: 10-25-2013 End: 10-25-2013 Follow Up Appt 6 months Follow Up Appt 6 months [facility] Work Phone: Start: 10-25-2013 End: 10-25-2013 MMM MMM [facility] Work Phone: Start: 09-29-2013 End: 09-29-2013 Follow Up Appt 6 months Follow Up Appt 6 months [facility] Work Phone: Start: 09-29-2013 End: 09-29-2013 MMM MMM [facility] Work Phone: Start: 07-18-2013 End: 07-29-2013 *Hepatic Function Panel *Hepatic Function Panel [facility] Work Phone: Start: 07-18-2013 End: 07-29-2013 Lipid panel [AGGREGATE] *Lipid Profile CC PCP [facility] Work Phone: Start: 07-11-2013 End: 07-11-2013 *Hepatic Function Panel *Hepatic Function Panel [facility] Work Phone: Start: 06-03-2013 End: 06-01-2013 *Hepatic Function Panel *Hepatic Function Panel [facility] Work Phone: Start: 03-25-2013 End: 05-04-2013 *Hepatic Function Panel *Hepatic Function Panel [facility] Work Phone: Start: 03-25-2013 End: 03-25-2013 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 [facility] Work Phone: Start: 03-25-2013 End: 03-25-2013 Follow Up Appt 6 months Follow Up Appt 6 months [facility] Work Phone: Start: 03-25-2013 End: 05-04-2013 Lipid panel [AGGREGATE] *Lipid Profile CC PCP [facility] Work Phone: Start: 03-21-2013 End: 03-21-2013 *Hepatic Function Panel *Hepatic Function Panel [facility] Work Phone: Start: 03-21-2013 End: 03-25-2013 Lipid panel [AGGREGATE] *Lipid Profile CC PCP [facility] Work Phone: Start: 12-13-2012 End: 12-13-2012 *Hepatic Function Panel *Hepatic Function Panel [facility] Work Phone: Start: 11-10-2012 End: 11-10-2012 *Hepatic Function Panel *Hepatic Function Panel [facility] Work Phone: Start: 11-10-2012 End: 11-10-2012 Lipid panel [AGGREGATE] *Lipid Profile [facility] Work Phone: Start: 09-07-2012 End: 09-07-2012 Follow Up Appt 6 months Follow Up Appt 6 months [facility] Work Phone: Start: 09-07-2012 End: 09-07-2012 MMM MMM [facility] Work Phone: Start: 08-19-2012 End: 08-30-2012 *Hepatic Function Panel *Hepatic Function Panel [facility] Work Phone: Start: 08-19-2012 End: 08-30-2012 Lipid panel [AGGREGATE] *Lipid Profile [facility] Work Phone: Start: 03-10-2012 End: 03-10-2012 24 hour holter monitor 24 hour holter monitor [facility] Work Phone: Start: 03-10-2012 End: 03-10-2012 Follow Up Appt 6 months Follow Up Appt 6 months [facility] Work Phone: Start: 03-10-2012 End: 03-10-2012 Nuclear stress test -exercise Nuclear stress test -exercise [facility] Work Phone: Start: 08-12-2011 End: 08-12-2011 Follow Up Appt 6 months Follow Up Appt 6 months [facility] Work Phone: Start: 10-30-2010 Screening for osteoporosis Bone Density Screening [facility] Start: 1999 Hepatitis B Vaccine (1 of 3 - Risk 3-dose series) Hepatitis B Vaccine (1 of 3 - Risk 3-dose series) [facility] Start: 1999 RSV Vaccine (1 - 1-dose 60+ series) RSV Vaccine (1 - 1-dose 60+ series) [facility] Start: 1989 SHINGRIX VACCINE (1 of 2) SHINGRIX VACCINE (1 of 2) [facility] Start: 1957 Anxiety Screening Anxiety Screening [facility] Bacteria identified in Urine by Culture URINE CULTURE Microbiology Routine Urinary frequency 06/05/2023 3:52 PM EST [facility] Work Phone: Bacteria identified in Urine by Culture URINE CULTURE Microbiology Routine Urgency of urination Ordered: 01/15/2024 [facility] Work Phone: Comment on above: Ordered: 01/15/2024 Bilirubin measuremen t, urine [facility] Cholesterol [Mass/volume] in Serum or Plasma [facility] Cholesterol in HDL [Mass/volume] in Serum or Plasma [facility] End: 03-27-[address] WHOLE BODY SKULL TO KNEE WO IVCON Radiology Routine MGUS (monoclonal gammopathy of unknown significance) 1 Occurrences starting 02/26/2024 until 03/27/2025 [facility] Work Phone: Comment on above: 1 Occurrences starting 02/26/2024 until 03/27/[address] WHOLE BODY SK ULL TO KNEE WO IVCON Radiology Routine MGUS (monoclonal gammopathy of unknown significance) 03/12/2024 4:08 PM EDT [facility] Work Phone: ECG COMPLETE [facility] Comment on above: Ordered: 02/06/2025 Glucose [Mass/volume ] in Serum or Plasma GLUCOSE, BLOOD (POC) Lab Routine Glucosuria Ordered: 06/05/2023 [facility] Work Phone: Comment on above: Ordered: 06/05/2023 Hemoglobin [Presence ] in Urine [facility] Low density lipoprot ein cholesterol measurement [facility] Measurement of keton es in urine using dipstick [facility] Microscopic urinalysis [facility] End: 05-01-2025 MR Skull base WO and W contrast IV MRI SKULL BASE WO/W IVCON Radiology Routine MGUS (monoclonal gammopathy of unknown significance) Compression fracture of thoracic vertebra, unspecified thoracic vertebral level, initial encounter (HCC) Lytic bone lesions on xray 1 Occurrences starting 04/01/2024 until 05/01/2025 [facility] Comment on above: 1 Occurrences starting 04/01/2024 until 05/01/2025 Patient Education [facility] Work Phone: Patient referral [facility] Work Phone: End: 05-01-2025 PET+CT Whole body Bone W 18F-NaF IV NM PET/CT WHOLE BODY INITIAL Radiology Routine MGUS (monoclonal gammopathy of unknown significance) Compression fracture of thoracic vertebra, unspecified thoracic vertebral level, initial encounter (HCC) Lytic bone lesions on xray 1 Occurrences starting 04/01/2024 until 05/01/2025 [facility] Work Phone: Comment on above: 1 Occurrences starting 04/01/2024 until 05/01/2025 pH of Urine [facility] Specific gravity of Urine [facility] Total cholesterol:HD L ratio measurement [facility] Triglycerides measurement [facility] Troponin T.cardiac [Mass/volume] in Serum or Plasma by High sensitivity method [facility] Urine blood test [facility] Urine dipstick for glucose [facility] Urine dipstick for leukocyte esterase [facility] Urine dipstick for nitrite [facility] Urine dipstick for protein [facility] Urine examination [facility] Urine microscopy: epithelial cells [facility] Urine Microscopy: wh ite cells [facility] Urobilinogen [Presen ce] in Urine [facility] US Heart [facility] VLDL cholesterol measurement [facility] End: 03-27-2025 XR Bones Complete Survey Views XR BONE SURVEY ROUTINE Radiology Routine MGUS (monoclonal gammopathy of unknown significance) 1 Occurrences starting 02/26/2024 until 03/27/2025 [facility] Comment on above: 1 Occurrences starting 02/26/2024 until 03/27/2025 XR Bones Complete Burgos rvey Views XR BONE SURVEY ROUTINE Radiology Routine MGUS (monoclonal gammopathy of unknown significance) 02/26/2024 12:28 PM EDT [facility] Immunizations Immunization Date Immunization Notes Care Provider [facility] 03-26-2024 influenza, high dose seasonal, preservative-free Dr. Victor M Rocha MD Work Phone: [facility] 03-26-2024 influenza virus vacc ine, unspecified formulation Prema Sampson RN [facility] 04-28-2023 influenza (HD-IIV4) vaccine, age 65+ yr, high dose, quadrivalent, PF (FLUZONE HIGH-DOSE) Victor M Rocha MD Work Phone: [facility] 04-28-2023 influenza virus vacc ine, unspecified formulation Daniel Bucio MD Work Phone: [facility] 04-24-2022 influenza, high-dose , quadrivalent vaccine (FLUZONE HIGH DOSE QUADRIVALENT) Vicotr M Rocha MD Work Phone: [facility] 01-14-2022 COVID-19 vaccine, ag e 12+ yr (PFIZER-BIONTECH - BRIDGES TOP) Victor M Rocha MD Work Phone: [facility] 04-11-2021 influenza, high-dose , quadrivalent vaccine (FLUZONE HIGH DOSE QUADRIVALENT) Victor M Rocha MD Work Phone: [facility] 09-06-2020 COVID-19 vaccine, ag e 12+ yr (PFIZER-BIONTECH - PURPLE TOP) Victor M Rocha MD Work Phone: [facility] Work Phone: 08-16-2020 COVID-19 vaccine, ag e 12+ yr (PFIZER-BIONTECH - PURPLE TOP) Victor M Rocha MD Work Phone: [facility] Work Phone: 06-01-2020 influenza, high-dose , quadrivalent vaccine (FLUZONE HIGH DOSE QUADRIVALENT) Victor M Rocha MD Work Phone: [facility] Work Phone: 03-29-2019 influenza, high dose seasonal, preservative-free Victor M Rocha MD Work Phone: [facility] 05-28-2018 influenza, high dose seasonal, preservative-free Victor M Rocha MD Work Phone: [facility] Work Phone: 04-13-2017 influenza, high dose seasonal, preservative-free Victor M Rocha MD Work Phone: [facility] 03-26-2016 influenza, high dose seasonal, preservative-free Victor M Rocha MD Work Phone: [facility] 09-18-2015 pneumococcal conjuga te vaccine, 13 valent Victor M Rocha MD Work Phone: [facility] 03-29-2014 influenza, high dose seasonal, preservative-free Victor M Rocha MD Work Phone: [facility] Work Phone: 05-13-2013 influenza virus vacc ine, unspecified formulation Victor M Rocha MD Work Phone: [facility] Work Phone: 05-11-[address] Victor M Rocha Work Phone: [facility] 06-23-2012 influenza virus vacc ine, unspecified formulation Victor M Rocha MD Work Phone: [facility] 05-12-2011 influenza virus vacc ine, unspecified formulation Victor M Rocha MD Work Phone: [facility] Work Phone: 10-04-2008 pneumococcal polysaccharide vaccine, 23 valent Victor M Rocha MD Work Phone: [facility] 10-04-2008 tetanus toxoid, redu sharifa diphtheria toxoid, and acellular pertussis vaccine, adsorbed Victor M Rocha MD Work Phone: [facility] 08-18-2005 pneumococcal polysaccharide vaccine, 23 valent Victor M Rocha MD Work Phone: [facility] 08-18-[address] Xiomy Rocha Work Phone: [facility] Work Phone: 08-18-2005 pneumococcal vaccine , unspecified formulation Dr. Victor M Rocha Work Phone: [facility] Payers Date Payer Category Payer Self-pay [id number] [id number] 2004 Medicare MEDICARE MEDICAR E A AND B [id number] 2004-Present [phone] [place] [address] Medicare [id number] 2004 Medicare [id number] 2004 Medicare [id number] 2004 Blue Cross Blue Shield BLUE CARD TRADITIONAL OOS [id number] 2004 Unknown ANTHEM BLUE CARD TRADITIONAL OOS [id number] 2004-Present [phone] [place] [address] Indemnity [id number] 2004 Unknown ANTHEM BLUE CARD TRADITIONAL OOS [id number] 2004-Present [phone] [address] [place] [address] Indemnity [id number] 2004 Unknown [id number] Unknown [id number] [id number]. 2.462 Unknown [id number] 2.16840.1.255931.3.579. 2.462 Unknown [id number] 2.16840.1.262208.3.579. 2.462 Unknown [id number] 2.16840.1.872996.3.579. 2.462 Unknown [id number] 2.16840.1.490596.3.579. 2.462 Unknown [id number] 2.16840.1.053192.3.579. 2.462 Unknown [id number] 2.16840.1.654506.3.579. 2.462 Unknown [id number] 2.16840.1.911566.3.579. 2.462 Unknown [id number] 2.16840.1.920523.3.579. 2.462 Unknown [id number] 2.16840.1.283286.3.579. 2.462 Unknown [id number] 2.840.1.755027.3.579. 2.462 Unknown [id number] 2.840.1.668776.3.579. 2.462 Unknown [id number] 2.840.1.805562.3.579. 2.462 Unknown [id number] 2.840.1.169352.3.579. 2.462 Unknown [id number] 2.840.1.333150.3.579. 2.462 Unknown [id number] 2.840.1.139095.3.579. 2.462 Unknown [id number] 2.840.1.177214.3.579. 2.462 Unknown [id number] 2.840.1.822810.3.579. 2.462 Unknown [id number] 2.840.1.258936.3.579. 2.462 Unknown [id number] 2.840.1.757296.3.579. 2.462 Unknown [id number] 2.840.1.912937.3.579. 2.462 Unknown [id number] 2.840.1.519924.3.579. 2.462 Social History Date Type Detail Facility Start: 03-03-2017 End: 04-03-2025 Tobacco smoking status NHIS Ex-smoker [facility] Start: 07-13-1961 End: 07-13-1981 History of tobacco use Current smoker [facility] Start: 07-13-1961 End: 07-13-1981 History of tobacco use Cigarette Smoker [facility] Start: 10-11-2021 End: 03-07-2025 Alcohol intake Current non-drinker of alcohol (finding) [facility] Start: 03-03-2017 End: 04-24-2022 Tobacco Comment Pt smoked one pack every 3 days. [facility] Start: 1940 Sex Assigned At Not on file [facility] Start: 10-01-2021 End: 01-14-2022 Exposure to SARS-CoV-2 (event) Not sure [facility] Start: 01-24-2022 End: 06-15-2023 Tobacco smoking status COIS Unknown if ever smoked [facility] Start: 12-19-2020 None [facility] Start: 12-19-2020 Homeless [facility] Start: 12-19-2020 Non-smoker [facility] Start: 1940 Sex Assigned At Female [facility] Start: 03-03-2017 End: 04-06-2024 Tobacco use and exposure Smokeless tobacco non-user [facility] Start: 12-11-2022 End: 04-28-2023 History of Social function [facility] Start: 12-11-2022 End: 04-28-2023 Tobacco use panel [facility] Start: 04-25-2015 Adult Depression Screening Assessment 0 [facility] (I/We) worried alina er (my/our) food would run out before (I/we) got money to buy more. Never true [facility] Work Phone: How often to you hav e a drink containing alcohol? Never [facility] Has the [employer], [employer], [employer], or water [employer] threatened to shut off services in your home in past 12Mo No [facility] Medical Equipment Procedure Code Equipment Code Equipment Origin al Text Equipment Identifier Dates Primary uncemented hemiarthroplasty of hip KIT,FEMORAL BONE CEMENT PREP FDA Start: 04-04-2025 Primary uncemented hemiarthroplasty of hip ([id number]) Metallic femoral head prosthesis ()[id number] FDA Start: 04-04-2025 Primary uncemented hemiarthroplasty of hip ([id number]) Orthopaedic cement spacer ()[id number] FDA Start: 04-04-2025 Primary uncemented hemiarthroplasty of hip ([id number]) Bipolar femoral head outer component, hemiarthroplasty ()[id number] FDA Start: 04-04-2025 Primary uncemented hemiarthroplasty of hip (699053433) Coated hip femur prosthesis, modular ()[id number] FDA Start: 04-04-2025 Primary uncemented hemiarthroplasty of hip Orthopaedic cement, antimicrobial ()[id number] FDA Start: 04-04-2025 Primary uncemented hemiarthroplasty of hip KIT,FEMORAL BONE CEMENT PREP FDA Start: 04-04-2025 [id number], [id number] Start: 03-08-2020 Comment on above: TEST BLOOD SUGAR ONC E DAILY Test blood sugar(s) 1 daily. Dx: Other DM Code E 11.29 Insulin: No Pacemaker-04/27/2015 [id number] Sta rt: 04-27-2015 Comment on above: Description: PM-ABT [id number] Assurity RV Lead 8TC-58 [id number] RA Lead 8TX-52 [id number] ([id number]) Dual-chamber implantable pacemaker, rate-responsive ()[id number] FDA Start: 04-11-2024 Goals Date Patient Goal Desired Activity /State Functional Status Date Assessment Result Facility 04-06-2025 Functional status Back to bed [facility] Work Phone: 02-10-2025 Functional status Bedside Commode [facility] Work Phone: 10-03-2014 Are you deaf, or do you have serious difficulty hearing No 10/03/2014 9:44 AM Kandi Thompson MA No [facility] 10-03-2014 Are you blind, or do you have serious difficulty seeing, even when wearing glasses No 10/03/2014 9:44 AM Kandi Thompson MA No [facility] 10-03-2014 Do you have serious difficulty walking or climbing stairs No 10/03/2014 9:44 AM Kandi Thompson MA No [facility] 10-03-2014 Do you have difficul ty dressing or bathing No 10/03/2014 9:44 AM Kandi Thompson MA No [facility] 10-03-2014 Because of a physica l, mental, or emotional condition, do you have difficulty doing errands alone such as visiting a physician's office or shopping No 10/03/2014 9:44 AM Kandi Thompson MA [facility] Mental Status Date Assessment Result Facility 04-06-2025 Cognitive function Voice/Name [facility] Work Phone: 02-10-2025 Cognitive function Voice/Name [facility] Work Phone: 02-08-2025 Cognitive function Level Of Cons ciousness Awake;Alert;Appropriate;Fol lows Commands [facility] Work Phone: 10-03-2014 Because of a physica l, mental, or emotional condition, do you have serious difficulty concentrating, remembering, or making decisions No 10/03/2014 9:44 AM Kandi Thompson MA [facility] Clinical Notes 09-10-2010 to 04-06-2025 Note Date & Type Note Facility 04-06-2025 Progress note Note Date/Time April 06, 2025 9:38am [facility] Medical Records Department [address] [place] [address] Progress Note - Hospitalist 04/06/25 0804 MR#: [id number] Acct: [id number] Name: GUDELIA GUPTA Rep #:[id number] : 1940 84 From: Gunnar Mullen DO PCP: Dr. Victor M Rocha MD Status:AD M IN Location: MS3 [id number] Reason for Visit Chief Complaint: Left hip pain after fall Subjective Subjective Feeling well. No new complaints. Objective Data Objective Data Vital Signs: Vital Signs Temp Pulse Resp BP Pulse Ox O2 Del Method O2 Flow Rate 36.6 C 80 16 102/74 97 Nasal Cannula 2 04/06/25 06:03 04/06/25 06:03 04/06/25 06:03 04/06/25 06:03 04/06/25 07:01 04/06/25 07:01 04/06/25 07:01 Oxygen Flow Rate (L/min) 2 Oxygen Delivery Method Nasal Cannula Weight: 89.6 kg Body Mass Index (BMI) 29.9 Intake & Output: Intake and Output for Last 24 Hours 04/04/25 04/05/25 04/06/25 23:59 23:59 23:59 Intake Total 1270 / 1270 350 / 350 1053.75 / 1053.75 Output Total 3600 / 3600 400 / 400 Balance -2330 / -2330 -50 / -50 1053.75 / 1053.75 Lab / Micro Data 04/05/25 06:27 04/05/25 06:27 Labs: Laboratory Results - last 24 hr 04/05/25 11:11: POC Glucose 256 H 04/05/25 17:03: POC Glucose 181 H 04/05/25 22:51: POC Glucose 165 H 04/06/25 06:17: POC Glucose 118 H Physical Exam Const alert and no apparent distress Constitutional Narrative: up in chair. afebrile. non-toxic. HEENT head/scalp atraumatic Assessment & Plan Assessment/Plan (1) Closed left hip fracture: QUALIFIERS: Encounter type: initial encounter Qualified Code(s): S72.002A - Fracture of unspecified part of neck of left femur, initial encounterfor closed fracture PLAN: Plan Left hip fracture * Imaging: Femur x-ray with nondisplaced impacted fracture of subcapital region of proximal left femur * 04/04: performed left hip cemented arthroplasty * Pain control and scheduled bowel regimen: Will continue patient's home oxycodone 3 times daily as scheduled as reportedly she does take it regularly * Patient's last dose of Xarelto was the evening of 04/02, unsure when surgery will take place, will make patient n.p.o. at midnight until this information is obtained to verify no delays * PT/OT * Case management and social work consults for DC planning Leukocytosis: * improved. likely reactive/demargination given fxr. * no additional work up at this time. Chronic medical conditions: * HFrEF: compensated. Last echo 03/26/2024 with EF of 45 to 50% unable to assess diastolic dysfunction with apex akinetic * History of A-fib/flutter/sick sinus syndrome with pacemaker placement * Type 2 diabetes mellitus-Glucose checks and sliding scale insulin-Hold home oral hypoglycemics * hypothyroidism-Continue Synthroid * Depression/anxiety-Continue home medications * Hypertension- Continue metoprolol with holding parameters, hold other home antihypertensives to allow for pain control and patient have surgery * Hx of CAD-w/ previous stenting- Holding Xarelto, continue statin, beta-rosaura as tolerated * GERD-Continue PPI DVT ppx: rivaroxaban. DW pt's at bedside DW SW/CM/RN. SNF today. 04/06/25 0977 <Electronically signed by Gunnar Mullen DO> Cosigner Signature (if applicable): CC: ~ Signed [facility] Work Phone: 1(917) 110-914709-25-2025 Consult note [facility] Medical Records Department [address] [place] [address] Anesthesia Postop Eval I 04/04/25 1520 MR#: [id number] Acct: [id number] Name: GUDELIA GUPTA Rep #:[id number] : 1940 84 From: Dwight ZARAGOZA PCP: Dr. Victor M Rocha MD Status:AD M IN Y Race: C Location: [place] [address] -1 Anesthesia: Postop Eval I Current Vital Signs Temperature: 99.3 F Pulse Rate: 80 Blood Pressure: 111/58 Respiratory Rate: 16 Pulse Ox: 92 Assessment Airway patent: Yes Spontaneous unlabored respirations: Yes nausea: No Vomiting: No Anesthesia Complication: No Fluid Hydration Crystalloid volume administer (ml): 1,300 Total IV fluid infused: 1,300 Progress Note Anesthesia document: Postop Eval 1 completed: Yes 04/04/25 1520 INDUSTRIAL ENGINEERING INTERN> Date _ Dwight Suarezbitt INDUSTRIAL ENGINEERING INTERN Chiquiigner Signature: Date CC: ~ Signed [facility]09-25-2025 Consult note [facility] Medical Records Department [address] [place] [address] Anesthesia Postop Eval II 04/04/25 1753 MR#: [id number] Acct: [id number] Name: GUDELIA GUPTA Rep #:[id number] : 1940 84 From: Niranjan Turner MD PCP: Dr. Victor M Rocha MD Status:AD M IN Y Race: C Location: [place] [address] Anesthesia Postop Eval I Sum Postop Eval Completion status Anesthesia document: Postop Eval 1 completed: Yes Anesthesia Postop Eval I Summary Anesthesia Postop Eval I Summary: Anesthesia Postop Eval I: Assessment Summary Airway patent Yes 04/04/25 15:20 INDUSTRIAL ENGINEERING INTERN.TNES Spontaneous unlabored Yes 04/04/25 15:20 INDUSTRIAL ENGINEERING INTERN.TNES respirations Mental status nausea No 04/04/25 15:20 INDUSTRIAL ENGINEERING INTERN.TNES Vomiting No 04/04/25 15:20 INDUSTRIAL ENGINEERING INTERN.TNES Anesthesia Postop Eval I: Fluid Summary Crystalloid volume administer 1,300 04/04/25 15:20 INDUSTRIAL ENGINEERING INTERN.TNES (ml) Colloids volume administered ( ml) Blood Product volume administered (ml) Total IV fluid infused 1,300 04/04/25 15:20 INDUSTRIAL ENGINEERING INTERN.TNES Anesthesia Postop Eval I: Summary Notes Anesthesia Complication No 04/04/25 15:20 INDUSTRIAL ENGINEERING INTERN.TNES Anesthesia Complication Comment: Post-operative progress note Anesthesia: Postop Eval II Evaluation Mental status: Awake and Calm Pain Level: 2 nausea: No Vomiting: No Complications Anesthesia Complication: No 04/04/25 1753 ness MORRISON> Date _ Niranjan Florianigner Signature: Date CC: ~ Signed [facility]09-25-2025 Consult note [facility] Medical Records Department [address] [place] [address] Counseling Note - Pharmacy 04/06/2546 MR#: [id number] Acct: [id number] Name: GUDELIA GUPTA Rep #:[id number] : 1940 84 From: Karthikeyan sewell PCP: Dr. Victor M Rocha MD Status:AD M IN Location: [facility] [place] [id number] Pharmacy [place] Med Reconciliation Pharmacy Service has performed discharge medication reconciliation for this patient. The patient's discharge medication list was reviewed for discrepancies and discrepancies were resolved. Medications at Discharge Home Medications buspirone 15 mg tablet 15 mg PO TID ANXIETY 06/02/13 omeprazole 40 mg capsule,delayed release 40 mg PO DAILY ACID REFLUX 06/02/13 nitroglycerin 0.4 mg sublingual tablet 0.4 mg sublingual Q5M PRN CHEST PAIN 04/21/15 amitriptyline 50 mg tablet 50 mg PO QHS DEPRESSION 02/17/23 empagliflozin 10 mg tablet (Jardiance) 10 mg PO DAILY DIABETES 02/17/23 ketotifen fumarate 0.025 % (0.035 %) eye drops (Alaway) 1 drp ophthalmic (eye) BID PRN ITCHING/ALLERGIES 02/17/23 levothyroxine 100 mcg tablet (Synthroid) 100 mcg PO DAILY THYROID 12/14/23 furosemide 40 mg tablet (Lasix) 40 mg PO DAILY water pill #60 tabs 12/17/23 rivaroxaban 20 mg tablet (Xarelto) 20 mg PO QPM #90 tabs 10/06/24 losartan 100 mg tablet 100 mg PO DAILY blood pressure #90 tabs 11/18/24 potassium chloride 20 mEq tablet,extended release(part/cryst) 40 meq (2 x 20 mEq) PO QDAY #90 tabs 11/21/24 metoprolol succinate 50 mg tablet,extended release 24 hr 50 mg PO DAILY heart/BP#90 tabs 11/23/24 simvastatin 20 mg tablet 20 mg PO QHS CHOLESTEROL #90 tabs 12/22/24 amlodipine 10 mg tablet 10 mg PO DAILY 02/08/25 ferrous sulfate 325 mg (65 mg iron) tablet (FeroSul) 65 mg PO DAILY 02/08/25 ascorbic acid (vitamin C) 500 mg tablet (Vitamin C) 500 mg PO BID 04/03/25 acetaminophen 500 mg tablet 1,000 mg (2 x 500 mg) PO Q8 PRN pain #0 tabs 04/06/25 nut.tx.comp. immune systm,reg 0.08 gram-1.4 kcal/mL oral liquid (Ensure Surgery)237 ml PO TIDCM #0 mL 04/06/25 oxycodone 5 mg tablet 5 mg PO TID 3 days #9 tabs 04/06/25 04/06/25 0946 ebly> Date _ Karthikeyan Guevara Signature (if applicable): Date CC: ~ Signed [facility]09-25-2025 Discharge summary [facility] Medical Records Department [address] [place] [address] Discharge Summary 04/06/25 0939 MR#: [id number] Acct: [id number] Name: GUDELIA GUPTA Rep #:[id number] : 1940 84 From: Gunnar Mullen DO PCP: Dr. Victor M Rocha MD Status:AD M IN Location: [facility] [place] [id number] Providers Date of Admission: 04/03/25 Primary Care Physician: Dr. Victor M Rocha MD Consultations 04/03/25 17:47 Consult: Orthopedics Routine Consulting Provider: Adonis Rodriguez Reason for Consult: left hip fx EMERGENT Consult: No MD Notified: Yes Date Notified: 04/03/25 Time Notified: 17:32 Method of Notification: ED Physician Initiated Reason For Visit: LEFT HIP FRACTURE Diagnosis Discharge Diagnosis (1) Closed left hip fracture: Status: Acute Code(s): S72.002A - Fracture of unspecified part of neck of left femur, initial encounterfor closed fracture Qualifiers: Encounter type: initial encounter Qualified Code(s): S72.002A - Fracture of unspecified part of neck of left femur, initial encounter for closedfracture Plan Left hip fracture * Imaging: Femur x-ray with nondisplaced impacted fracture of subcapital region of proximal left femur * 04/04: performed left hip cemented arthroplasty * Pain control and scheduled bowel regimen: Will continue patient's home oxycodone 3 times daily asscheduled as reportedly she does take it regularly * Patient's last dose of Xarelto was the evening of 04/02, unsure when surgery will take place, willmake patient n.p.o. at midnight until this information is obtained to verify no delays * PT/OT * Case management and social work consults for DC planning Leukocytosis: * improved. likely reactive/demargination given fxr. * no additional work up at this time. Chronic medical conditions: * HFrEF: compensated. Last echo 03/26/2024 with EF of 45 to 50% unable to assess diastolic dysfunction with apex akinetic * History of A-fib/flutter/sick sinus syndrome with pacemaker placement * Type 2 diabetes mellitus-Glucose checks and sliding scale insulin-Hold home oral hypoglycemics * hypothyroidism-Continue Synthroid * Depression/anxiety-Continue home medications * Hypertension- Continue metoprolol with holding parameters, hold other home antihypertensives to allow for pain control and patient have surgery * Hx of CAD-w/ previous stenting- Holding Xarelto, continue statin, beta-rosaura as tolerated * GERD-Continue PPI DVT ppx: rivaroxaban. DW pt's at bedside DW SW/RUSTY/RN. SNF today. Medications at Discharge Home Medications buspirone 15 mg tablet 15 mg PO TID ANXIETY 06/02/13 omeprazole 40 mg capsule,delayed release 40 mg PO DAILY ACID REFLUX 06/02/13 nitroglycerin 0.4 mg sublingual tablet 0.4 mg sublingual Q5M PRN CHEST PAIN 04/21/15 amitriptyline 50 mg tablet 50 mg PO QHS DEPRESSION 02/17/23 empagliflozin 10 mg tablet (Jardiance) 10 mg PO DAILY DIABETES 02/17/23 ketotifen fumarate 0.025 % (0.035 %) eye drops (Alaway) 1 drp ophthalmic (eye) BID PRN ITCHING/ALLERGIES 02/17/23 levothyroxine 100 mcg tablet (Synthroid) 100 mcg PO DAILY THYROID 12/14/23 furosemide 40 mg tablet (Lasix) 40 mg PO DAILY water pill #60 tabs 12/17/23 rivaroxaban 20 mg tablet (Xarelto) 20 mg PO QPM #90 tabs 10/06/24 losartan 100 mg tablet 100 mg PO DAILY blood pressure #90 tabs 11/18/24 potassium chloride 20 mEq tablet,extended release(part/cryst) 40 meq (2 x 20 mEq) PO QDAY #90 tabs 11/21/24 metoprolol succinate 50 mg tablet,extended release 24 hr 50 mg PO DAILY heart/BP#90 tabs 11/23/24 simvastatin 20 mg tablet 20 mg PO QHS CHOLESTEROL #90 tabs 12/22/24 amlodipine 10 mg tablet 10 mg PO DAILY 02/08/25 ferrous sulfate 325 mg (65 mg iron) tablet (FeroSul) 65 mg PO DAILY 02/08/25 ascorbic acid (vitamin C) 500 mg tablet (Vitamin C) 500 mg PO BID 04/03/25 acetaminophen 500 mg tablet 1,000 mg (2 x 500 mg) PO Q8 PRN pain #0 tabs 04/06/25 nut.tx.comp. immune systm,reg 0.08 gram-1.4 kcal/mL oral liquid (Ensure Surgery)237 ml PO TIDCM #0 mL 04/06/25 oxycodone 5 mg tablet 5 mg PO TID 3 days #9 tabs 04/06/25 Hospital Course Operations - ( Left hip cemented hemiarthroplasty) Procedures None Weight / BMI Weight Weight: 89.6 kg Body Mass Index (BMI) 29.9 ABG / Lab / Microbiology Data 04/05/25 06:27 04/05/25 06:27 Laboratory: Laboratory Results - last 24 hr 04/05/25 11:11: POC Glucose 256 H 04/05/25 17:03: POC Glucose 181 H 04/05/25 22:51: POC Glucose 165 H 04/06/25 06:17: POC Glucose 118 H D/C Instructions DC O2, CPAP, BIPAP Needs Home O2 Discharge instructions: No Meaningful Use Info Meaningful Use Meaningful Use Diagnoses (Choose all that apply): None applicable Discharge Plan Admission Admit Date/Time: 04/03/25 17:13 Primary Reason for Your Visit: left hip fracture. Attending Provider: Gunnar Mullen Primary Care Provider: Victor M Rocha Consulting Providers: Ashli Bonner; Adonis Rodriguez Discharge Orders/Prescriptions Prescriptions: New acetaminophen 500 mg Tablet 1,000 mg PO Q8 PRN (Reason: pain) Qty: 0 0RF oxycodone 5 mg Tablet 5 mg PO TID 3 Days Qty: 9 0RF Ensure Surgery 0.08-1.4 gram-kcal/mL Liquid 237 ml PO TIDCM Qty: 0 0RF Continued amitriptyline 50 mg tablet 50 mg PO QHS Jardiance 10 mg tablet 10 mg PO DAILY ketotifen fumarate [Alaway] 0.025 % (0.035 %) drops 1 drp ophthalmic (eye) BID PRN (Reason: ITCHING/ALLERGIES ) omeprazole 40 MG capsule 40 mg PO DAILY buspirone 15 MG tablet 15 mg PO TID nitroglycerin 0.4 MG tablet 0.4 mg SUBLINGUAL Q5M PRN (Reason: CHEST PAIN ) ascorbic acid (vitamin C) [Vitamin C] 500 mg tablet 500 mg PO BID levothyroxine [Synthroid] 100 mcg tablet 100 mcg PO DAILY furosemide [Lasix] 40 mg tablet 40 mg PO DAILY Qty: 60 0RF amlodipine 10 mg tablet 10 mg PO DAILY Patient Comments: PT THINKS SHE IS STILL TAKING BUT HAS NOT FILLED IN SEVERAL MONTHS ferrous sulfate [FeroSul] 325 mg (65 mg iron) tablet 65 mg PO DAILY Xarelto 20 mg tablet 20 mg PO QPM Qty: 90 3RF Rx Instructions: must administer with evening meal losartan 100 mg tablet 100 mg PO DAILY Qty: 90 3RF potassium chloride 20 mEq tablet,ER particles/crystals 40 meq PO QDAY Qty: 90 3RF metoprolol succinate 50 mg tablet extended release 24 hr 50 mg PO DAILY Qty: 90 3RF simvastatin 20 mg tablet 20 mg PO QHS Qty: 90 3RF Discontinued oxycodone-acetaminophen 5-325 mg tablet 1 tab PO TID PRN PRN (Reason: pain) Referrals / Follow Up: Victor M Rocha MD [Primary Care Provider, Family Practice] - Within 2 Weeks Adonis Rodriguez MD [Med Staff - Active Staff, Orthopedics] - Within 2 Weeks Disposition Disposition (needs filled in before D/C Order can be placed): Care Home Facility Charges/Coding Visit Charges Inpatient E&M: 90638 Disch Hosp 04/06/25 0940 Cosigner Signature (if applicable): CC: Dr. Gunnar Mullen DO; Dr. Victor M Rocha MD~ Signed [facility]09-25-2025 Discharge summary [facility] Medical Records Department [address] [place] [address] Transfer to [facility] MR#: [id number] Acct: [id number] Name: GUDELIA GUPTA Rep #:[id number] : 1940 84 From: Gunnar Mullen DO PCP: Dr. Victor M Rocha MD Status:AD M IN Certification of patient admission REQUIRED AT TIME OF ADMISSION. I CERTIFY THAT POST-HOSPITAL ECF SERVICES ARE REQUIRED TO BE GIVEN ON AN IN-PATIENT BASIS BECAUSE OF THE ABOVE NAMED PATIENT'S NEED FOR [facility] CARE ON A CONTINUING BASIS FOR THE CONDITION(S) FOR WHICH HE/SHE WAS RECEIVING IN-PATIENT HOSPITAL SERVICES PRIOR TO HIS/HER TRANSFER TO THE [facility]. 04/06/25 0939 Diet Diet Order/Speech Therapy: INPATIENT Hospital Diet / Speech Therapy Order(s) 04/04/25 20:26 Diet: Cardiac: Calorie-Controlled How many daily calories?: 1800 calorie DC O2, CPAP, BIPAP needs Home O2 Discharge instructions: No Wound(s) LT HIP: Wound Type: Surgical Incision Therapies Weight Bearing: Weight bearing as tolerated Extremity Affected:: Left Lower Physical Therapy: Eval and Treat Occupational Therapy: Eval and Treat Problem/Diagnosis (1) Closed left hip fracture: Status: Acute Code(s): S72.002A - Fracture of unspecified part of neck of left femur, initial encounterfor closed fracture Plan Left hip fracture * Imaging: Femur x-ray with nondisplaced impacted fracture of subcapital region of proximal left femur * 04/04: performed left hip cemented arthroplasty * Pain control and scheduled bowel regimen: Will continue patient's home oxycodone 3 times daily asscheduled as reportedly she does take it regularly * Patient's last dose of Xarelto was the evening of 04/02, unsure when surgery will take place, willmake patient n.p.o. at midnight until this information is obtained to verify no delays * PT/OT * Case management and social work consults for DC planning Leukocytosis: * improved. likely reactive/demargination given fxr. * no additional work up at this time. Chronic medical conditions: * HFrEF: compensated. Last echo 03/26/2024 with EF of 45 to 50% unable to assess diastolic dysfunction with apex akinetic * History of A-fib/flutter/sick sinus syndrome with pacemaker placement * Type 2 diabetes mellitus-Glucose checks and sliding scale insulin-Hold home oral hypoglycemics * hypothyroidism-Continue Synthroid * Depression/anxiety-Continue home medications * Hypertension- Continue metoprolol with holding parameters, hold other home antihypertensives to allow for pain control and patient have surgery * Hx of CAD-w/ previous stenting- Holding Xarelto, continue statin, beta-rosaura as tolerated * GERD-Continue PPI DVT ppx: rivaroxaban. DW pt's at bedside DW TEE/CM/RN. SNF today. Allergies/Procedures Done in Hospital Allergies poison fany extract (Poison Fany Extract) Allergy (Verified 04/03/25 13:18) Rash Sulfa (Sulfonamide Antibiotics) Allergy (Verified 04/03/25 13:18) Hives Procedures: - ( Left hip cemented hemiarthroplasty) Type of Care/Length of Stay Estimated LOS: Convalescent Care Less Than 30 days Type of Care Needed: Skilled Rehab Potential: Good Prognosis: Good Additional Orders/Day of Discharge Day of Discharge: 04/06/25 Discharge Plan Admission Admit Date/Time: 04/03/25 17:13 Primary Reason for Your Visit: left hip fracture. Attending Provider: Gunnar Mullen Primary Care Provider: Victor M Rocha Consulting Providers: Ashli Bonner; Adonis Rodriguez Discharge Orders/Prescriptions Prescriptions: New acetaminophen 500 mg Tablet 1,000 mg PO Q8 PRN (Reason: pain) Qty: 0 0RF oxycodone 5 mg Tablet 5 mg PO TID 3 Days Qty: 9 0RF Ensure Surgery 0.08-1.4 gram-kcal/mL Liquid 237 ml PO TIDCM Qty: 0 0RF Continued amitriptyline 50 mg tablet 50 mg PO QHS Jardiance 10 mg tablet 10 mg PO DAILY ketotifen fumarate [Alaway] 0.025 % (0.035 %) drops 1 drp ophthalmic (eye) BID PRN (Reason: ITCHING/ALLERGIES ) omeprazole 40 MG capsule 40 mg PO DAILY buspirone 15 MG tablet 15 mg PO TID nitroglycerin 0.4 MG tablet 0.4 mg SUBLINGUAL Q5M PRN (Reason: CHEST PAIN ) ascorbic acid (vitamin C) [Vitamin C] 500 mg tablet 500 mg PO BID levothyroxine [Synthroid] 100 mcg tablet 100 mcg PO DAILY furosemide [Lasix] 40 mg tablet 40 mg PO DAILY Qty: 60 0RF amlodipine 10 mg tablet 10 mg PO DAILY Patient Comments: PT THINKS SHE IS STILL TAKING BUT HAS NOT FILLED IN SEVERAL MONTHS ferrous sulfate [FeroSul] 325 mg (65 mg iron) tablet 65 mg PO DAILY Xarelto 20 mg tablet 20 mg PO QPM Qty: 90 3RF Rx Instructions: must administer with evening meal losartan 100 mg tablet 100 mg PO DAILY Qty: 90 3RF potassium chloride 20 mEq tablet,ER particles/crystals 40 meq PO QDAY Qty: 90 3RF metoprolol succinate 50 mg tablet extended release 24 hr 50 mg PO DAILY Qty: 90 3RF simvastatin 20 mg tablet 20 mg PO QHS Qty: 90 3RF Discontinued oxycodone-acetaminophen 5-325 mg tablet 1 tab PO TID PRN PRN (Reason: pain) Referrals / Follow Up: Victor M Rocha MD [Primary Care Provider, Family Practice] - Within 2 Weeks Adonis Rodriguez MD [Med Staff - Active Staff, Orthopedics] - Within 2 Weeks Disposition Disposition (needs filled in before D/C Order can be placed): Care Home Facility (1) Closed left hip fracture Qualifiers: Encounter type: initial encounter Qualified Code(s): S72.002A - Fracture of unspecified part of neck of left femur, initial encounter for closed fracture 04/06/25 09 Cosigner Signature (if applicable): CC: Dr. Victor M Rocha MD; Dr. Ashli Bonner MD; Dr. Adonis Rodriguez MD ~ [facility]09-25-2025 [facility] Medical Records Department [address] [place] [address] Discharge Summary 04/06/25 0939 MR#: [id number] Acct: [id number] Name: GUDELIA GUPTA Rep #: [id number] : 1940 84 From: Gunnar Mullen DO PCP: Dr. Victor M Rocha MD Status:ADM IN Location: [place] [address] Providers Date of Admission: 04/03/25 Primary Care Physician: Dr. Victor M Rocha MD Consultations 04/03/25 17:47 Consult: Orthopedics Routine Consulting Provider: Adonis Rodriguez Reason for Consult: left hip fx EMERGENT Consult: No MD Notified: Yes Date Notified: 04/03/25 Time Notified: 17:32 Method of Notification: ED Physician Initiated Reason For Visit: LEFT HIP FRACTURE Diagnosis Discharge Diagnosis (1) Closed left hip fracture: Status: Acute Code(s): S72.002A - Fracture of unspecified part of neck of left femur, initial encounter for closed fracture Qualifiers: Encounter type: initial encounter Qualified Code(s): S72.002A - Fracture of unspecified part of neck of left femur, initial encounter for closed fracture Plan Left hip fracture * Imaging: Femur x-ray with nondisplaced impacted fracture of subcapital region of proximal left femur * 04/04: performed left hip cemented arthroplasty * Pain control and scheduled bowel regimen: Will continue patient's home oxycodone 3 times daily as scheduled as reportedly she does take it regularly * Patient's last dose of Xarelto was the evening of 04/02, unsure when surgery will take place, will make patient n.p.o. at midnight until this information is obtained to verify no delays * PT/OT * Case management and social work consults for DC planning Leukocytosis: * improved. likely reactive/demargination given fxr. * no additional work up at this time. Chronic medical conditions: * HFrEF: compensated. Last echo 03/26/2024 with EF of 45 to 50% unable to assess diastolic dysfunction with apex akinetic * History of A-fib/flutter/sick sinus syndrome with pacemaker placement * Type 2 diabetes mellitus-Glucose checks and sliding scale insulin-Hold home oral hypoglycemics * hypothyroidism-Continue Synthroid * Depression/anxiety-Continue home medications * Hypertension- Continue metoprolol with holding parameters, hold other home antihypertensives to allow for pain control and patient have surgery * Hx of CAD-w/ previous stenting- Holding Xarelto, continue statin, beta-rosaura as tolerated * GERD-Continue PPI DVT ppx: rivaroxaban. DW pt's at bedside DW SW/RUSTY/RN. SNF today. Medications at Discharge Home Medications buspirone 15 mg tablet 15 mg PO TID ANXIETY 06/02/13 omeprazole 40 mg capsule,delayed release 40 mg PO DAILY ACID REFLUX 06/02/13 nitroglycerin 0.4 mg sublingual tablet 0.4 mg sublingual Q5M PRN CHEST PAIN 04/21/15 amitriptyline 50 mg tablet 50 mg PO QHS DEPRESSION 02/17/23 empagliflozin 10 mg tablet (Jardiance) 10 mg PO DAILY DIABETES 02/17/23 ketotifen fumarate 0.025 % (0.035 %) eye drops (Alaway) 1 drp ophthalmic (eye) BID PRN ITCHING/ALLERGIES 02/17/23 levothyroxine 100 mcg tablet (Synthroid) 100 mcg PO DAILY THYROID 12/14/23 furosemide 40 mg tablet (Lasix) 40 mg PO DAILY water pill #60 tabs 12/17/23 rivaroxaban 20 mg tablet (Xarelto) 20 mg PO QPM #90 tabs 10/06/24 losartan 100 mg tablet 100 mg PO DAILY blood pressure #90 tabs 11/18/24 potassium chloride 20 mEq tablet,extended release(part/cryst) 40 meq (2 x 20 mEq) PO QDAY #90 tabs 11/21/24 metoprolol succinate 50 mg tablet,extended release 24 hr 50 mg PO DAILY heart/BP #90 tabs 11/23/24 simvastatin 20 mg tablet 20 mg PO QHS CHOLESTEROL #90 tabs 12/22/24 amlodipine 10 mg tablet 10 mg PO DAILY 02/08/25 ferrous sulfate 325 mg (65 mg iron) tablet (FeroSul) 65 mg PO DAILY 02/08/25 ascorbic acid (vitamin C) 500 mg tablet (Vitamin C) 500 mg PO BID 04/03/25 acetaminophen 500 mg tablet 1,000 mg (2 x 500 mg) PO Q8 PRN pain #0 tabs 04/06/25 nut.tx.comp. immune systm,reg 0.08 gram-1.4 kcal/mL oral liquid (Ensure Surgery) 237 ml PO TIDCM #0 mL 09/25/25 oxycodone 5 mg tablet 5 mg PO TID 3 days #9 tabs 04/06/25 Hospital Course Operations - ( Left hip cemented hemiarthroplasty) Procedures None Weight / BMI Weight Weight: 89.6 kg Body Mass Index (BMI) 29.9 ABG / Lab / Microbiology Data 04/05/25 06:27 04/05/25 06:27 Laboratory: Laboratory Results - last 24 hr 04/05/25 11:11: POC Glucose 256 H 04/05/25 17:03: POC Glucose 181 H 04/05/25 22:51: POC Glucose 165 H 04/06/25 06:17: POC Glucose 118 H D/C Instructions DC O2, CPAP, BIPAP Needs Home O2 Discharge instructions: No Meaningful Use Info Meaningful Use Meaningful Use Diagnoses (Choose all that apply): None applicable Discharge Plan Admission Admit Date/Time: 04/03/25 17:13 Primary Reason for Your Visit: left hip fracture. Attending Provider: (more content not included)...[facility] 04-06-2025 Progress note [facility] Medical Records Department [address] [place] [address] Progress Note - Hospitalist 04/06/25 0804 MR#: [id number] Acct: [id number] Name: GUDELIA GUPTA Rep #:[id number] : 1940 84 From: Gunnar Mullen DO PCP: Dr. Victor M Rocha MD Status:AD M IN Location: [place] [address] Reason for Visit Chief Complaint: Left hip pain after fall Subjective Subjective Feeling well. No new complaints. Objective Data Objective Data Vital Signs: Vital Signs Temp Pulse Resp BP Pulse Ox O2 Del Method O2 Flow Rate 36.6 C 80 16 102/74 97 Nasal Cannula 2 04/06/25 06:03 04/06/25 06:03 04/06/25 06:03 04/06/25 06:03 04/06/25 07:01 04/06/25 07:01 04/06/25 07:01 Oxygen Flow Rate (L/min) 2 Oxygen Delivery Method Nasal Cannula Weight: 89.6 kg Body Mass Index (BMI) 29.9 Intake & Output: Intake and Output for Last 24 Hours 09/04/05/25 04/06/25 23:59 23:59 23:59 Intake Total 1270 / 1270 350 / 350 1053.75 / 1053.75 Output Total 3600 / 3600 400 / 400 Balance -2330 / -2330 -50 / -50 1053.75 / 1053.75 Lab / Micro Data 04/05/25 06:27 04/05/25 06:27 Labs: Laboratory Results - last 24 hr 04/05/25 11:11: POC Glucose 256 H 04/05/25 17:03: POC Glucose 181 H 04/05/25 22:51: POC Glucose 165 H 04/06/25 06:17: POC Glucose 118 H Physical Exam Const alert and no apparent distress Constitutional Narrative: up in chair. afebrile. non-toxic. HEENT head/scalp atraumatic Assessment & Plan Assessment/Plan (1) Closed left hip fracture: QUALIFIERS: Encounter type: initial encounter Qualified Code(s): S72.002A - Fracture of unspecifiedpart of neck of left femur, initial encounterfor closed fracture PLAN: Plan Left hip fracture * Imaging: Femur x-ray with nondisplaced impacted fracture of subcapital region of proximal left femur * 04/04: performed left hip cemented arthroplasty * Pain control and scheduled bowel regimen: Will continue patient's home oxycodone 3 times daily asscheduled as reportedly she does take it regularly * Patient's last dose of Xarelto was the evening of 04/02, unsure when surgery will take place, willmake patient n.p.o. at midnight until this information is obtained to verify no delays * PT/OT * Case management and social work consults for DC planning Leukocytosis: * improved. likely reactive/demargination given fxr. * no additional work up at this time. Chronic medical conditions: * HFrEF: compensated. Last echo 03/26/2024 with EF of 45 to 50% unable to assess diastolic dysfunction with apex akinetic * History of A-fib/flutter/sick sinus syndrome with pacemaker placement * Type 2 diabetes mellitus-Glucose checks and sliding scale insulin-Hold home oral hypoglycemics * hypothyroidism-Continue Synthroid * Depression/anxiety-Continue home medications * Hypertension- Continue metoprolol with holding parameters, hold other home antihypertensives to allow for pain control and patient have surgery * Hx of CAD-w/ previous stenting- Holding Xarelto, continue statin, beta-rosaura as tolerated * GERD-Continue PPI DVT ppx: rivaroxaban. DW pt's at bedside DW TEE/RUSTY/RN. SNF today. 04/06/25 0938 Cosigner Signature (if applicable): CC: ~ Signed [facility]09-24-2025 Progress note Author Shavon Ferguson [facility] Note Date/Time April 05, 2025 3:33pm [facility] Medical Records Department [address] [place] [address] Progress Note - Orthopedic 04/05/25 1518 MR#: [id number] Acct: [id number] Name: GUDELIA GUPTA Rep #:[id number] : 1940 84 From: Shavon BRISCOE PCP: Dr. Victor M Rocha MD Status:AD M IN Location: [place] [address] Subjective Subjective Patient is s/p left hip cemented hemiarthroplasty with Dr. Rodriguez 04/04/25. Patient resting comfortably in bed. Tylenol, oxycodone and ice help to relievepain. Patient has been up with therapy. Walking with the assit of a walker. Weightbearing as tolerated. Afebrile, no chest pain, shortness of breath, negative calf pain/ erythema, and no other signs of DVT. Objective Data Objective Data Vital Signs: Vital Signs Temp Pulse Resp BP Pulse Ox O2 Del Method O2 Flow Rate 97.8 F 80 15 104/52 L 92 Room Air 2 04/05/25 10:00 04/05/25 11:04 04/05/25 10:00 04/05/25 10:00 04/05/25 10:00 04/05/25 11:28 04/05/25 10:00 Oxygen Flow Rate (L/min) 2 Oxygen Delivery Method Room Air Weight: 89.6 kg Body Mass Index (BMI) 29.9 Intake & Output: Intake and Output for Last 24 Hours 04/03/25 04/04/25 04/05/25 23:59 23:59 23:59 Intake Total 1000 / 1000 1270 / 1270 50 / 50 Output Total 2000 / 4000 3600 / 3600 400 / 400 Balance -1000 / -3000 -2330 / -2330 -350 / -350 Lab / Micro Data 04/05/25 06:27 04/05/25 06:27 Labs: Laboratory Results - last 24 hr 04/04/25 16:25: POC Glucose 171 H 04/04/25 21:27: POC Glucose 213 H 04/05/25 05:56: POC Glucose 157 H 04/05/25 06:27: WBC 14.7 H, RBC 3.41 L, Hgb 10.2 L, Hct 31.5 L, MCV 92.4, MCH 29.9, MCHC 32.4, RDW Std Deviation 67.8 H, RDW Coeff of Jose Alberto 20.4 H, Plt Count 201, MPV 10.3, Immature Gran % (Auto) 0.400, Neut % (Auto) 88.4 H, Lymph % (Auto) 5.5 L, [place] % (Auto) 5.6, Eos % (Auto) 0.0, Baso % (Auto) 0.1, Absolute Neuts (auto) 13.0 H, Absolute Lymphs (auto) 0.81 L, Nucleated RBC % 0, Anisocytosis RARE, Sodium 132 L, Potassium 4.5, Chloride 100, Carbon Dioxide 21.1, Anion Gap 11, BUN 18, Creatinine 1.11, Estim Creat Clear Calc 43.39 L, EstGFR (MDRD) Non-Af 49 L, BUN/Creatinine Ratio 16.6, Glucose 182 H, Calcium 8.8 04/05/25 11:11: POC Glucose 256 H Radiography Diagnostic Testing: Radiology Impression Hip X-Ray 04/04/25 15:20 IMPRESSION: Status post total left hip replacement. Normal alignment without loosening. Reading Location: [facility] Physical Exam Narrative Patient resting comfortably in bed No signs of acute distress Satting well on room air Limb is warm to touch, Sensation intact throughout entire lower extremity, including saphenous, sural, superficial and deep peroneal, and tibial distribution. DP/PT pulses bounding. Dressing small amount of sanguanous drainage on the mid portion of dressing. itis dried at this time. Calf nontender to palpation, no erythema, no edema. Negative Homans Assessment & Plan Assessment/Plan (1) S/P total hip arthroplasty: PLAN: Plan 1. Will continue PT today. Weightbearing as tolerated. Posterior hip precautions x 6 weeks 2. plan for discharge per primary. Stable from orthopedic standpoint. 3. Patient will follow up for post op appointment in 2 weeks this will need to be scheduled. 4. WBC 14.7 acute reactive leukocytosis: secondary to pre operative decadron. noacute systemic signs of infection. will monitor, and likely self resolve. 5. H/H 10.2/31.5: post operavtive anemia secondary to acute blood loss intraoperatively. Patient is asymptomatic at this time. No intraoperative complications. will continue to monitor. no acute interventions. 6. DVT prophylaxis : Resume Xarelto 7. Pain control: patient instructed to take tylenol 500mg 2 tablets TID. and oxycodone 1-2 tablets every 4-6 hours only as needed for pain control. 8. ok to remove post op dressing. post op day 5 9. Emily will be removed in 2 weeks. 04/05/25 1532 <Electronically signed by Shavon BRISCOE> Cosigner Signature (if applicable): CC: ~ Signed ADDENDUM by LUIS FELIPE Dickinson on 04/05/25 at 1533 Addendum orthopaedics will sign off at this time. 04/05/25 1532<Electronically signed by Shavon BRISCOE> Cosigner Signature (if applicable): cc: ~* Signed [facility] Work Phone: [phone]) 476-328009-24-2025 Progress note [facility] Medical Records Department [address] [place] [address] Progress Note - Orthopedic 04/05/25 1518 MR#: [id number] Acct: [id number] Name: GUDELIA GUPTA Rep #:[id number] : 1940 84 From: Shavon BRISCOE PCP: Dr. Victor M Rocha MD Status:AD M IN Location: MS3 [id number] Subjective Subjective Patient is s/p left hip cemented hemiarthroplasty with Dr. Rodriguez 04/04/25. Patient resting comfortably in bed. Tylenol, oxycodone and ice help to relievepain. Patient has been up with therapy. Walking with the assit of a walker. Weightbearing as tolerated. Afebrile, no chest pain, shortness of breat h, negative calf pain/ erythema, and no other signs of DVT. Objective Data Objective Data Vital Signs: Vital Signs Temp Pulse Resp BP Pulse Ox O2 Del Method O2 Flow Rate 97.8 F 80 15 104/52 L 92 Room Air 2 04/05/25 10:00 04/05/25 11:04 04/05/25 10:00 04/05/25 10:00 04/05/25 10:00 04/05/25 11:28 04/05/25 10:00 Oxygen Flow Rate (L/min) 2 Oxygen Delivery Method Room Air Weight: 89.6 kg Body Mass Index (BMI) 29.9 Intake & Output: Intake and Output for Last 24 Hours 04/03/25 04/04/25 04/05/25 23:59 23:59 23:59 Intake Total 1000 / 1000 1270 / 1270 50 / 50 Output Total 2000 / 4000 3600 / 3600 400 / 400 Balance -1000 / -3000 -2330 / -2330 -350 / -350 Lab / Micro Data 04/05/25 06:27 04/05/25 06:27 Labs: Laboratory Results - last 24 hr 04/04/25 16:25: POC Glucose 171 H 04/04/25 21:27: POC Glucose 213 H 04/05/25 05:56: POC Glucose 157 H 04/05/25 06:27: WBC 14.7 H, RBC 3.41 L, Hgb 10.2 L, Hct 31.5 L, MCV 92.4, MCH 29.9, MCHC 32.4, RDW Std Deviation 67.8 H, RDW Coeff of Jose Alberto 20.4 H, Plt Count 201, MPV 10.3, Immature Gran % (Auto) 0.400, Neut % (Auto) 88.4 H, Lymph % (Auto) 5.5 L, [place] % (Auto) 5.6, Eos % (Auto) 0.0, Baso % (Auto) 0.1, Absolute Neuts (auto) 13.0 H, Absolute Lymphs (auto) 0.81 L, Nucleated RBC % 0, Anisocytosis RARE,Sodium 132 L, Potassium 4.5, Chloride 100, Carbon Dioxide 21.1, Anion Gap 11, BUN 18, Creatinine 1.11, Estim Creat Clear Calc 43.39 L, EstGFR (MDRD) Non-Af 49 L, BUN/Creatinine Ratio 16.6, Glucose 182 H, Calcium 8.8 04/05/25 11:11: POC Glucose 256 H Radiography Diagnostic Testing: Radiology Impression Hip X-Ray 04/04/25 15:20 IMPRESSION: Status post total left hip replacement. Normal alignment without loosening. Reading Location: [facility] Physical Exam Narrative Patient resting comfortably in bed No signs of acute distress Satting well on room air Limb is warm to touch, Sensation intact throughout entire lower extremity, including saphenous, sural, superficial and deep peroneal, and tibial distribution. DP/PT pulses bounding. Dressing small amount of sanguanous drainage on the mid portion of dressing. itis dried at this time. Calf nontender to palpation, no erythema, no edema. Negative Homans Assessment & Plan Assessment/Plan (1) S/P total hip arthroplasty: PLAN: Plan 1. Will continue PT today. Weightbearing as tolerated. Posterior hip precautions x 6 weeks 2. plan for discharge per primary. Stable from orthopedic standpoint. 3. Patient will follow up for post op appointment in 2 weeks this will need to be scheduled. 4. WBC 14.7 acute reactive leukocytosis: secondary to pre operative decadron. noacute systemic signs of infection. will monitor, and likely self resolve. 5. H/H 10..5: post operavtive anemia secondary to acute blood loss intraoperatively. Patient isasymptomatic at this time. No intraoperative complications. will continue to monitor. no acute interventions. 6. DVT prophylaxis : Resume Xarelto 7. Pain control: patient instructed to take tylenol 500mg 2 tablets TID. and oxycodone 1-2 tablets every 4-6 hours only as needed for pain control. 8. ok to remove post op dressing. post op day 5 9. Emily will be removed in 2 weeks. 04/05/251531 Cosigner Signature (if applicable): CC: ~ Signed ADDENDUM by LUIS FELIPE Dickinson on 04/05/25 at 1533 Addendum orthopaedics will sign off at this time. 04/05/251531 Cosigner Signature (if applicable): cc: ~* Signed [facility]09-24-2025 Progress note Author Gunnar Mullen [facility] Note Date/Time April 05, 2025 12:20pm [facility] Medical Records Department [address] [place] [address] Progress Note - Hospitalist 04/05/25718 MR#: [id number] Acct: [id number] Name: GUDELIA GUPTA Rep #:[id number] : 1940 84 From: Gunnar Mullen DO PCP: Dr. Victor M Rocha MD Status:AD M IN Location: [place] [id number] Reason for Visit Chief Complaint: Left hip pain after fall Subjective Subjective Feeling better. Pain in left hip much better. Objective Data Objective Data Vital Signs: Vital Signs Temp Pulse Resp BP Pulse Ox O2 Del Method O2 Flow Rate 36.7 C 81 18 134/82 H 95 Nasal Cannula 2 04/05/25 04:02 04/05/25 04:02 04/05/25 04:02 04/05/25 04:02 04/05/25 04:02 04/05/25 04:02 04/05/25 04:02 Oxygen Flow Rate (L/min) 2 Oxygen Delivery Method Nasal Cannula Weight: 89.6 kg Body Mass Index (BMI) 29.9 Intake & Output: Intake and Output for Last 24 Hours 04/03/25 04/04/25 04/05/25 23:59 23:59 23:59 Intake Total 1000 / 1000 1270 / 1270 50 / 50 Output Total 2000 / 4000 3600 / 3600 400 / 400 Balance -1000 / -3000 -2330 / -2330 -350 / -350 Lab / Micro Data 04/05/25 06:27 04/05/25 06:27 Labs: Laboratory Results - last 24 hr 04/04/25 10:56: POC Glucose 137 H 04/04/25 16:25: POC Glucose 171 H 04/04/25 21:27: POC Glucose 213 H 04/05/25 05:56: POC Glucose 157 H 04/05/25 06:27: WBC 14.7 H, RBC 3.41 L, Hgb 10.2 L, Hct 31.5 L, MCV 92.4, MCH 29.9, MCHC 32.4, RDW Std Deviation 67.8 H, RDW Coeff of Jose Alberto 20.4 H, Plt Count 201, MPV 10.3, Immature Gran % (Auto) 0.400, Neut % (Auto) 88.4 H, Lymph % (Auto) 5.5 L, [place] % (Auto) 5.6, Eos % (Auto) 0.0, Baso % (Auto) 0.1, Absolute Neuts (auto) 13.0 H, Absolute Lymphs (auto) 0.81 L, Nucleated RBC % 0 Radiography Diagnostic Testing: Radiology Impression Hip X-Ray 04/04/25 15:20 IMPRESSION: Status post total left hip replacement. Normal alignment without loosening. Reading Location: [facility] Physical Exam Const alert Constitutional Narrative: up in chair. afebrile. HEENT head/scalp atraumatic and moist oral mucous membranes Resp normal respiratory effort and no retractions Neuro Sensorium / Orientation: awake and alert Psych affect normal Assessment & Plan Assessment/Plan (1) Closed left hip fracture: QUALIFIERS: Encounter type: initial encounter Qualified Code(s): S72.002A - Fracture of unspecified part of neck of left femur, initial encounterfor closed fracture PLAN: Plan Left hip fracture * Imaging: Femur x-ray with nondisplaced impacted fracture of subcapital region of proximal left femur * 04/04: performed left hip cemented arthroplasty * Pain control and scheduled bowel regimen: Will continue patient's home oxycodone 3 times daily as scheduled as reportedly she does take it regularly * Patient's last dose of Xarelto was the evening of 04/02, unsure when surgery will take place, will make patient n.p.o. at midnight until this information is obtained to verify no delays * PT/OT * Case management and social work consults for DC planning Leukocytosis: * improved. likely reactive/demargination given fxr. * no additional work up at this time. Chronic medical conditions: * HFrEF: compensated. Last echo 03/26/2024 with EF of 45 to 50% unable to assess diastolic dysfunction with apex akinetic * History of A-fib/flutter/sick sinus syndrome with pacemaker placement * Type 2 diabetes mellitus-Glucose checks and sliding scale insulin-Hold home oral hypoglycemics * hypothyroidism-Continue Synthroid * Depression/anxiety-Continue home medications * Hypertension- Continue metoprolol with holding parameters, hold other home antihypertensives to allow for pain control and patient have surgery * Hx of CAD-w/ previous stenting- Holding Xarelto, continue statin, beta-rosaura as tolerated * GERD-Continue PPI DVT ppx: rivaroxaban. DW pt's at bedside DW SW/CM/RN. Plan for SNF pending acceptance. Charges/Coding Visit Charges Inpatient E&M: 65258 Subs Hosp L2 04/05/25 1220 <Electronically signed by Gunnar Mullen DO> Cosigner Signature (if applicable): CC: ~ Signed [facility] Work Phone: 1(712) 185-376409-24-2025 Progress note [facility] Medical Records Department [address] [facility] [address] Progress Note - Hospitalist 04/05/25718 MR#: [id number] Acct: [id number] Name: GUDELIA GUPTA Rep #:[id number] : 1940 84 From: Gunnar Mullen DO PCP: Dr. Victor M Rocha MD Status:AD M IN Location: [place] [address]-1 Reason for Visit Chief Complaint: Left hip pain after fall Subjective Subjective Feeling better. Pain in left hip much better. Objective Data Objective Data Vital Signs: Vital Signs Temp Pulse Resp BP Pulse Ox O2 Del Method O2 Flow Rate 36.7 C 81 18 134/82 H 95 Nasal Cannula 2 04/05/25 04:02 04/05/25 04:02 04/05/25 04:02 04/05/25 04:02 04/05/25 04:02 04/05/25 04:02 04/05/25 04:02 Oxygen Flow Rate (L/min) 2 Oxygen Delivery Method Nasal Cannula Weight: 89.6 kg Body Mass Index (BMI) 29.9 Intake & Output: Intake and Output for Last 24 Hours 04/03/25 04/04/25 04/05/25 23:59 23:59 23:59 Intake Total 1000 / 1000 1270 / 1270 50 / 50 Output Total 2000 / 4000 3600 / 3600 400 / 400 Balance -1000 / -3000 -2330 / -2330 -350 / -350 Lab / Micro Data 04/05/25 06:27 04/05/25 06:27 Labs: Laboratory Results - last 24 hr 04/04/25 10:56: POC Glucose 137 H 04/04/25 16:25: POC Glucose 171 H 04/04/25 21:27: POC Glucose 213 H 04/05/25 05:56: POC Glucose 157 H 04/05/25 06:27: WBC 14.7 H, RBC 3.41 L, Hgb 10.2 L, Hct 31.5 L, MCV 92.4, MCH 29.9, MCHC 32.4, RDW Std Deviation 67.8 H, RDW Coeff of Jose Alberto 20.4 H, Plt Count 201, MPV 10.3, Immature Gran % (Auto) 0.400, Neut % (Auto) 88.4 H, Lymph % (Auto) 5.5 L, [place] % (Auto) 5.6, Eos % (Auto) 0.0, Baso % (Auto) 0.1, Absolute Neuts (auto) 13.0 H, Absolute Lymphs (auto) 0.81 L, Nucleated RBC % 0 Radiography Diagnostic Testing: Radiology Impression Hip X-Ray 04/04/25 15:20 IMPRESSION: Status post total left hip replacement. Normal alignment without loosening. Reading Location: [facility] Physical Exam Const alert Constitutional Narrative: up in chair. afebrile. HEENT head/scalp atraumatic and moist oral mucous membranes Resp normal respiratory effort and no retractions Neuro Sensorium / Orientation: awake and alert Psych affect normal Assessment & Plan Assessment/Plan (1) Closed left hip fracture: QUALIFIERS: Encounter type: initial encounter Qualified Code(s): S72.002A - Fracture of unspecifiedpart of neck of left femur, initial encounterfor closed fracture PLAN: Plan Left hip fracture * Imaging: Femur x-ray with nondisplaced impacted fracture of subcapital region of proximal left femur * 04/04: performed left hip cemented arthroplasty * Pain control and scheduled bowel regimen: Will continue patient's home oxycodone 3 times daily asscheduled as reportedly she does take it regularly * Patient's last dose of Xarelto was the evening of 04/02, unsure when surgery will take place, willmake patient n.p.o. at midnight until this information is obtained to verify no delays * PT/OT * Case management and social work consults for DC planning Leukocytosis: * improved. likely reactive/demargination given fxr. * no additional work up at this time. Chronic medical conditions: * HFrEF: compensated. Last echo 03/26/2024 with EF of 45 to 50% unable to assess diastolic dysfunction with apex akinetic * History of A-fib/flutter/sick sinus syndrome with pacemaker placement * Type 2 diabetes mellitus-Glucose checks and sliding scale insulin-Hold home oral hypoglycemics * hypothyroidism-Continue Synthroid * Depression/anxiety-Continue home medications * Hypertension- Continue metoprolol with holding parameters, hold other home antihypertensives to allow for pain control and patient have surgery * Hx of CAD-w/ previous stenting- Holding Xarelto, continue statin, beta-rosaura as tolerated * GERD-Continue PPI DVT ppx: rivaroxaban. DW pt's at bedside DW SW/RUSTY/RN. Plan for SNF pending acceptance. Charges/Coding Visit Charges Inpatient E&M: 58008 Subs Hosp L2 04/05/25 1220 Cosigner Signature (if applicable): CC: ~ Signed [facility]09-23-2025 Consult note Author Niranjan Turner [facility] Note Date/Time April 06, 2025 11:37am [facility] Medical Records Department [address] [place] [address] Anesthesia Postop Eval II 04/04/25 1753 MR#: [id number] Acct: [id number] Name: GUDELIA GUPTA Rep #:[id number] : 1940 84 From: Niranjan Turner MD PCP: Dr. Victor M Rocha MD Status:AD M IN Y Race: C Location: [facility] [id number] -[id number] Anesthesia Postop Eval I Sum Postop Eval Completion status Anesthesia document: Postop Eval 1 completed: Yes Anesthesia Postop Eval I Summary Anesthesia Postop Eval I Summary: Anesthesia Postop Eval I: Assessment Summary Airway patent Yes 04/04/25 15:20 [employer] INTERN.TNES Spontaneous unlabored Yes 04/04/25 15:20 INDUST[employer] ENGINEER[employer] INTERN.TNES respirations Mental status nausea No 04/04/25 15:20 INDUST[employer] ENGINE[employer]N.TNES Vomiting No 04/04/25 15:20 INDUSTRIAL ENGINEERING INTERN.TNES Anesthesia Postop Eval I: Fluid Summary Crystalloid volume administer 1,300 04/04/25 15:20 INDUSTRIAL ENGINEERING INTERN.TNES (ml) Colloids volume administered ( ml) Blood Product volume administered (ml) Total IV fluid infused 1,300 04/04/25 15:20 INDUSTRIAL ENGINEERING INTERN.TNES Anesthesia Postop Eval I: Summary Notes Anesthesia Complication No 04/04/25 15:20 INDUSTRIAL ENGINEERING INTERN.TNES Anesthesia Complication Comment: Post-operative progress note Anesthesia: Postop Eval II Evaluation Mental status: Awake and Calm Pain Level: 2 nausea: No Vomiting: No Complications Anesthesia Complication: No 04/04/25 1753 <Electronically signed by Niranjan arzola MD> Date _ Niranjan Turner MD Cosigner Signature: Date CC: ~ Signed [facility] Work Phone: 1(806) 375-972709-23-2025 Consult note Author Dwight [place] [facility] Note Date/Time April 06, 2025 11:37am [facility] Medical Records Department [address] [place] [id number] Anesthesia Postop Eval I 04/04/25 1520 MR#: [id number] Acct: [id number] Name: GUDELIA KEENE Jose Rep #:[id number] : 1940 84 From: Dwight ZARAGOZA PCP: Dr. Victor M Rocha MD Status:AD M IN Y Race: C Location: [place] [address] -1 Anesthesia: Postop Eval I Current Vital Signs Temperature: 99.3 F Pulse Rate: 80 Blood Pressure: 111/58 Respiratory Rate: 16 Pulse Ox: 92 Assessment Airway patent: Yes Spontaneous unlabored respirations: Yes nausea: No Vomiting: No Anesthesia Complication: No Fluid Hydration Crystalloid volume administer (ml): 1,300 Total IV fluid infused: 1,300 Progress Note Anesthesia document: Postop Eval 1 completed: Yes 04/04/25 1520 <Electronically signed by Dwight Berg CRNA> Date _ Dwight Berg CRNA Cosigner Signature: Date CC: ~ Signed [facility] Work Phone: [phone]) 713-519709-23-2025 Consult note Author Adonis Rodriguez [facility] Note Date/Time April 04, 2025 2:48pm [facility] Medical Records Department [address] [place] [address] Consultation - Orthopedics 04/04/25 1444 MR#: [id number] Acct: [id number] Name: GUDELIA GUPTA Rep #:[id number] : 1940 84 From: Adonis Garcia PCP: Dr. Victor M Rocha MD Status:AD M IN Location: [facility] [id number] HPI Consult Data Date of Consult: 04/04/25 HPI Narrative HPI Narrative: GUDELIA GUPTA, is a 84 F who presents after falling at home yesterday April 03, 2025. She was going up stairs. At the top she caught her foot falling ontothe floor. She landed on her left side. She did not fall down the stairs. Shewas not able to walk. She was brought to the hospital. She was diagnosed with a displaced femoral neck fracture. Admitted to the medical service. Orthopedics appropriately consulted. She denies dizziness head injury loss of consciousness. [facility] Medical History Overweight (BMI 25.0-29.9) Coronary artery disease Iron deficiency anemia History of non-ST elevation myocardial infarction (NSTEMI) (2013) Longstanding persistent atrial fibrillation Essential (primary) hypertension Anxiety Hypothyroidism Hyperlipidemia Secondary pulmonary arterial hypertension Atherosclerosis of coronary artery of [place] heart without angina pectoris Paroxysmal atrial fibrillation Paroxysmal atrial flutter Sick sinus syndrome Home Medications ?Medication ?Instructions ?Recorded ?Last Taken ?Type buspirone 15 mg tablet 15 mg PO TID ANXIETY 3 04/04/25 History omeprazole 40 mg capsule,delayed 40 mg PO DAILY ACID R EFLUX 06/02/13 04/02/25 History release nitroglycerin 0.4 mg sublingual 0.4 mg sublingual Q5M PRN CHEST 04/21/15 Unknown History tablet PAIN amitriptyline 50 mg tablet 50 mg PO QHS DEPRESSION 03/0404/02/25 History empagliflozin 10 mg tablet 10 mg PO DAILY DIABETES 03/0404/03/25 History (Jardiance) ketotifen fumarate 0.025 % (0.035 1 drp ophthalmic (ey e) BID PRN 02/17/23 04/02/25 History %) eye drops ([place]) ITCHING/ALLERGIES levothyroxine 100 mcg tablet 100 mcg PO DAILY THYROID 12/14/23 04/04/25 History (Synthroid) furosemide 40 mg tablet (Lasix) 40 mg PO DAILY water p ill #60 tabs 12/17/23 04/03/25 Rx rivaroxaban 20 mg tablet (Xarelto) 20 mg PO QPM #90 ta bs 10/06/24 04/02/25 Rx losartan 100 mg tablet 100 mg PO DAILY blood pressu re #90 11/18/24 04/03/25 Rx tabs potassium chloride 20 mEq 40 meq (2 x 20 mEq) PO QDAY #90 11/21/24 04/02/25 Rx tablet,extended release(part/cryst) tabs metoprolol succinate 50 mg 50 mg PO DAILY heart/BP #90 tabs 11/23/24 04/04/25 Rx tablet,extended release 24 hr simvastatin 20 mg tablet 20 mg PO QHS CHOLESTEROL #9 0 tabs 12/22/24 04/02/25 Rx amlodipine 10 mg tablet 10 mg PO DAILY 02/08/2503/14 History ferrous sulfate 325 mg (65 mg 65 mg PO DAILY 02/08/25 04/03/25 History iron) tablet (FeroSul) oxycodone-acetaminophen 5 mg-325 1 tab PO TID PRN PRN pain 02/08/25 04/03/25 History mg tablet ascorbic acid (vitamin C) 500 mg 500 mg PO BID 5 04/03/25 History tablet (Vitamin C) Allergy/AdvReac Type Severity Reaction Status Date / Time poison fany extract (Poison Allergy Rash Verified 04/03/25 13:18 Fany Extract) Sulfa (Sulfonamide Allergy Hives Verified 04/03/25 13:18 Antibiotics) Family History Mother Cancer Father Cancer Brother CAD (coronary artery disease) Sister CAD (coronary artery disease) Surgical History S/P kyphoplasty History of tubal ligation History of appendectomy History of hysterectomy History of left heart catheterization (10/09/13) History of coronary artery stent placement (09/2010) Hx of atrioventricular node ablation (03/31/16) Presence of cardiac pacemaker (04/26/15) Social History household members: spouse Smoking Status: Former smoker how long ago did patient quit smokin's alcohol intake: never substance use type: does not use caffeine: Yes Type: coffee Number of servings: 3 ROS ROS Narrative Patient denies any recent changes to eyes ears nose or throat heart or lungs bowel or bladder. Currently having significant left hip pain with moving from fracture. Vital Signs Vital Signs Vital Signs: 04/03/25 15:09 04/03/25 15:13 04/03/25 16:30 Temperature 98 F Temperature Source Pulse Rate 83 83 Respiratory Rate 20 H 20 H Respiratory Effort Respiratory Depth Respiratory Pattern Blood Pressure 96/83 H Blood Pressure Mean 87 Blood Pressure Source Blood Pressure Position Blood Pressure Location Pulse Ox 81 93 93 Oxygen Delivery Method Room Air Nasal Cannula Oxygen Flow Rate (L/min) 2 04/03/25 16:54 04/03/25 17:48 04/03/25 17:56 Temperature 98.1 F Temperature Source Oral Pulse Rate 101 H Respiratory Rate 18 Respiratory Effort Short of Breath Respiratory Depth Respiratory Pattern Blood Pressure 127/52 H Blood Pressure Mean 77 Blood Pressure Source Monitor Blood Pressure Position Semi-Fowlers Blood Pressure Location Left Arm Pulse Ox 92 93 Oxygen Delivery Method Nasal Cannula Nasal Cannula Nasal Cannula Oxygen Flow Rate (L/min) 5 7 7 04/03/25 19:51 04/03/25 20:00 04/03/25 20:00 Temperature 98.5 F 98 F Temperature Source Temporal Temporal Pulse Rate 79 79 Respiratory Rate 16 16 Respiratory Effort Normal Non-Labored Respiratory Depth Normal Respiratory Pattern Normal Blood Pressure 121/57 H 121/57 H Blood Pressure Mean 78 78 Blood Pressure Source Monitor Monitor Blood Pressure Position Supine Semi-Fowlers Blood Pressure Location Left Arm Right Arm Pulse Ox 95 95 Oxygen Delivery Method Nasal Cannula Nasal Cannula Nasal Cannula Oxygen Flow Rate (L/min) 2 2 2 04/03/25 20:10 04/04/25 02:14 04/04/25 07:47 Temperature 97.8 F 97.8 F Temperature Source Temporal Temporal Pulse Rate 81 80 Respiratory Rate 16 18 Respiratory Effort Respiratory Depth Respiratory Pattern Blood Pressure 104/53 L 139/65 H Blood Pressure Mean 70 89 Blood Pressure Source Monitor Monitor Blood Pressure Position Semi-Fowlers Supine Blood Pressure Location Left Arm Left Arm Pulse Ox 95 94 91 Oxygen Delivery Method Nasal Cannula Nasal Cannula Nasal Cannula Oxygen Flow Rate (L/min) 2 2 3 04/04/25 07:52 04/04/25 07:55 04/04/25 10:03 Temperature Temperature Source Pulse Rate 80 Respiratory Rate Respiratory Effort Normal Non-Labored Respiratory Depth Normal Respiratory Pattern Normal Blood Pressure Blood Pressure Mean Blood Pressure Source Blood Pressure Position Blood Pressure Location Pulse Ox 95 Oxygen Delivery Method Nasal Cannula Nasal Cannula Oxygen Flow Rate (L/min) 3 2 04/04/25 12:02 04/04/25 12:35 Temperature 97.8 F 97.8 F Temperature Source Temporal Pulse Rate 80 80 Respiratory Rate 18 18 Respiratory Effort Respiratory Depth Respiratory Pattern Blood Pressure 129/93 H 129/93 H Blood Pressure Mean 105 Blood Pressure Source Monitor Blood Pressure Position Right Lateral Blood Pressure Location Left Arm Pulse Ox 89 89 Oxygen Delivery Method Nasal Cannula Room Air Oxygen Flow Rate (L/min) 3 3 Weight Weight: 89.3 kg Body Mass Index (BMI) 29.8 Physical Exam Narrative Left hip has shortening and external rotation. Left hip has pain on palpation. No pain at the right hip. No pain with moving the right hip. SCDs are on. Shehad no calf pain. She can gently plantarflex and dorsiflex toes and ankles. Distal pulses intact. Skin intact about the left hip. Lab / Micro Data Attestation: I reviewed the patient's lab results. 04/04/25 04:40 04/04/25 04:40 Labs: Laboratory Results - last 24 hr 04/03/25 14:35: WBC 17.4 H, RBC 4.08 L, Hgb 11.8 L, Hct 37.3, MCV 91.4, MCH 28.9, MCHC 31.6 L, RDW Std Deviation 70.0 H, RDW Coeff of Jose Alberot 21.3 H, Plt Count 236, MPV 9.6, Immature Gran % (Auto) 0.800, Neut % (Auto) 86.5 H, Lymph % (Auto)4.3 L, [place] % (Auto) 8.1, Eos % (Auto) 0.1, Baso % (Auto) 0.2, Absolute Neuts (auto) 15.0 H, Absolute Lymphs (auto) 0.75 L, Nucleated RBC % 0, Anisocytosis 1+, PT 24.1 H, INR 2.1, APTT 40.9 H, Sodium 135, Potassium 4.4, Chloride 101, Carbon Dioxide 22.0, Anion Gap 12, BUN 18, Creatinine 1.34 H, Estim Creat Clear Calc 36.41 L, Est GFR (MDRD) Non-Af 39 L, BUN/Creatinine Ratio 13.5, Glucose 181H, Calcium 9.2, NT pro BNP II 1850 H 04/03/25 21:43: POC Glucose 174 H 04/04/25 04:40: WBC 9.5, RBC 3.87 L, Hgb 11.3 L, Hct 35.4 L, MCV 91.5, MCH 29.2,MCHC 31.9 L, RDW Std Deviation 70.1 H, RDW Coeff of Jose Alberto 21.3 H, Plt Count 211, MPV 10.2, Immature Gran % (Auto) 0.600, Neut % (Auto) 76.2 H, Lymph % (Auto) 11.5 L, [place] % (Auto) 9.4, Eos % (Auto) 2.1, Baso % (Auto) 0.2, Absolute Neuts (auto) 7.2, Absolute Lymphs (auto) 1.09, Nucleated RBC % 0, Anisocytosis RARE, Sodium 136, Potassium 4.5, Chloride 103, Carbon Dioxide 20.0 L, Anion Gap 13, BUN 18, Creatinine 1.34 H, Estim Creat Clear Calc 35.43 L, Est GFR (MDRD) Non-Af39 L, BUN/Creatinine Ratio 13.5, Glucose 118 H, Calcium 8.9, Blood Type O POSITIVE, Antibody Screen NEGATIVE 04/04/25 06:14: POC Glucose 123 H 04/04/25 10:56: POC Glucose 137 H Imaging Radiology Impression Chest X-Ray 04/03/25 14:09 IMPRESSION: Left thoracic transvenous pacemaker with atrial and ventricular leads, stable inposition. A prominently calcified aorta is noted. Mild cardiomegaly is seen. Increased interstitial markings are seen, concerning for (but not diagnostic of)mild interstitial pulmonary edema. No focal infiltrate is noted. No pleural effusion or pneumothorax is seen. No acute osseous change is seen. Reading [id number] 04/03/25 14:09 IMPRESSION: Nondisplaced impacted fracture of the subcapital region of the proximal left femur. Soft tissue swelling. Reading Location: [facility] Pelvis X-Ray 04/03/25 14:09 IMPRESSION: Residual contrast material is seen within at least 2 sigmoid diverticula. Significant degenerative changes are seen of the visualized lower lumbar spine. Mild sacroiliac joint degenerative changes are noted. Deformity of the left femoral neck is seen, concerning for possible basicervicalmildly impacted fracture. Additional imaging of the left hip may be performed, at this time. Reading Location: -[id number] Brain CT 04/03/25 15:00 IMPRESSION: CHRONIC CHANGES. NO ACUTE FINDINGS. Reading Location: [facility] 04/03/25 15:00 IMPRESSION: DEGENERATIVE CHANGES OF THE CERVICAL SPINE. NO EVIDENCE OF SIGNIFICANT OSSEOUS CENTRAL CANAL OR NEURAL FORAMINAL STENOSIS. Reading Location: [facility] Assessment & Plan Assessment/Plan (1) Closed left hip fracture: QUALIFIERS: Encounter type: initial encounter Qualified Code(s): S72.002A - Fracture of unspecified part of neck of left femur, initial encounterfor closed fracture PLAN: Her diagnosis and treatment options regarding her left displaced femoral neck fracture discussed with her and her family at length. Surgical and nonsurgical options discussed. I recommended cemented hip arthroplasty. They did wish to proceed. Risk of surgery including but not limited to from operative or postoperative complications. Risk of anesthetic complications such as heart attacks, strokes, seizures, or . Risk of infections. Risk of damage to nerves arteries tendons. Risk of inadvertent fractures or dislocations. Risk of bone or wound healing complications. Possibility of nonunion malunion pain stiffness weakness. Possible need for further surgery such as hardware removal. Risk of DVT PE and other potential complications could lead to or disability explained. No guarantees were stated or implied. All of their questions were answered. Appropriate informed consent was obtained and signed for surgical intervention. Patient has been evaluated by the medical service and anesthesia service. She has been deemed safe for surgery. She did have a dose of Xarelto seemingly yesterday morning. I explained the risk of proceeding versus the risk of postponing surgery. We decided to proceed. Patient will be on Ancef before and after surgery. We will resume her Xarelto tomorrow. She will continue on the medical service. 04/04/25 1448 <Electronically signed by Adonis Rodriguez MD> Cosigner Signature (if applicable): CC: Dr. Victor M Rocha MD~ Signed [facility] Work Phone: [phone] 779-582809-23-2025 Radiology Diagnostic study note [facility] Imaging Services [address] [place] [address] [id number] Hip Min 2 Views (Portable) MR#: [id number] Acct: [id number] Name: GUDELIA GUPTA Rep #: [id number] : 1940 F 84 From: Gerardo Sandoval MD PCP: Dr. Victor M Rocha MD Status: AD M IN Study:Hip Min 2 Views (Portable) Date of Exam : 04/04/25 Exam# [id number] Ordering Dr: Tessie Rodriguez MD PROCEDURE: HIP MIN 2 VIEWS (PORTABLE) 04/04/2025 REASON FOR EXAM: POST OP TECHNIQUE: Procedure Code: RADH_P Modality: DX Procedure: HIP MIN 2 VIEWS (PORTABLE) Laterality: Left COMPARISON: None. FINDINGS: Bones: No acute bony abnormalities. No periprosthetic loosening. Joints: Status post total left hip replacement. Soft tissues: Soft tissue swelling. RAD/Hip Min 2 Views (Portable) IMPRESSION: Status post total left hip replacement. Normal alignment without loosening. Reading Location: [facility] CC: Dr. Victor M Rocha MD; Dr. Adonis Rodriguez MD ~ Job Checker: Signed [facility]09-23-2025 Consult note [facility] Medical Records Department [address] [place] [address] Consultation - Orthopedics 04/04/25 1444 MR#: [id number] Acct: [id number] Name: GUDELIA GUPTA Rep #:[id number] : 1940 84 From: Adonis Garcia PCP: Dr. Victor M Rocha MD Status:AD M IN Location: [facility] [id number] HPI Consult Data Date of Consult: 04/04/25 HPI Narrative HPI Narrative: GUDELIA GUPTA, is a 84 F who presents after falling at home yesterday April 03, 2025. She was going up stairs. At the top she caught her foot falling ontothe floor. She landed on her left side. She did not fall down the stairs. Shewas not able to walk. She was brought to the hospital. She was diagnosed with a displaced femoral neck fracture. Admitted to the medical service. Orthopedics appropriately consulted. She denies dizziness head injury loss of consciousness. [facility] Medical History Overweight (BMI 25.0-29.9) Coronary artery disease Iron deficiency anemia History of non-ST elevation myocardial infarction (NSTEMI) (2013) Longstanding persistent atrial fibrillation Essential (primary) hypertension Anxiety Hypothyroidism Hyperlipidemia Secondary pulmonary arterial hypertension Atherosclerosis of coronary artery of [place] heart without angina pectoris Paroxysmal atrial fibrillation Paroxysmal atrial flutter Sick sinus syndrome Home Medications ?Medication ?Instructions ?Recorded ?Last Taken ?Type buspirone 15 mg tablet 15 mg PO TID ANXIETY 3 04/04/25 History omeprazole 40 mg capsule,delayed 40 mg PO DAILY ACID R EFLUX 06/02/13 04/02/25 History release nitroglycerin 0.4 mg sublingual 0.4 mg sublingual Q5M PRN CHEST 04/21/15 Unknown History tablet PAIN amitriptyline 50 mg tablet 50 mg PO QHS DEPRESSION 03/0404/02/25 History empagliflozin 10 mg tablet 10 mg PO DAILY DIABETES 03/0404/03/25 History (Jardiance) ketotifen fumarate 0.025 % (0.035 1 drp ophthalmic (ey e) BID PRN 02/17/23 04/02/25 History %) eye drops ([place]) ITCHING/ALLERGIES levothyroxine 100 mcg tablet 100 mcg PO DAILY THYROID 12/14/23 04/04/25 History (Synthroid) furosemide 40 mg tablet (Lasix) 40 mg PO DAILY water p ill #60 tabs 12/17/23 04/03/25 Rx rivaroxaban 20 mg tablet (Xarelto) 20 mg PO QPM #90 ta bs 10/06/24 04/02/25 Rx losartan 100 mg tablet 100 mg PO DAILY blood pressu re #90 11/18/24 04/03/25 Rx tabs potassium chloride 20 mEq 40 meq (2 x 20 mEq) PO QDAY #90 11/21/24 04/02/25 Rx tablet,extended release(part/cryst) tabs metoprolol succinate 50 mg 50 mg PO DAILY heart/BP #90 tabs 11/23/24 04/04/25 Rx tablet,extended release 24 hr simvastatin 20 mg tablet 20 mg PO QHS CHOLESTEROL #9 0 tabs 12/22/24 04/02/25 Rx amlodipine 10 mg tablet 10 mg PO DAILY 02/08/2503/14 History ferrous sulfate 325 mg (65 mg 65 mg PO DAILY 02/08/25 04/03/25 History iron) tablet (FeroSul) oxycodone-acetaminophen 5 mg-325 1 tab PO TID PRN PRN pain 02/08/25 04/03/25 History mg tablet ascorbic acid (vitamin C) 500 mg 500 mg PO BID 5 04/03/25 History tablet (Vitamin C) Allergy/AdvReac Type Severity Reaction Status Date / Time poison fany extract (Poison Allergy Rash Verified 04/03/25 13:18 Fany Extract) Sulfa (Sulfonamide Allergy Hives Verified 04/03/25 13:18 Antibiotics) Family History Mother Cancer Father Cancer Brother CAD (coronary artery disease) Sister CAD (coronary artery disease) Surgical History S/P kyphoplasty History of tubal ligation History of appendectomy History of hysterectomy History of left heart catheterization (10/09/13) History of coronary artery stent placement (09/2010) Hx of atrioventricular node ablation (03/31/16) Presence of cardiac pacemaker (04/26/15) Social History household members: spouse Smoking Status: Former smoker how long ago did patient quit smokin's alcohol intake: never substance use type: does not use caffeine: Yes Type: coffee Number of servings: 3 ROS ROS Narrative Patient denies any recent changes to eyes ears nose or throat heart or lungs bowel or bladder. Currently having significant left hip pain with moving from fracture. Vital Signs Vital Signs Vital Signs: 04/03/25 15:09 04/03/25 15:13 04/03/25 16:30 Temperature 98 F Temperature Source Pulse Rate 83 83 Respiratory Rate 20 H 20 H Respiratory Effort Respiratory Depth Respiratory Pattern Blood Pressure 96/83 H Blood Pressure Mean 87 Blood Pressure Source Blood Pressure Position Blood Pressure Location Pulse Ox 81 93 93 Oxygen Delivery Method Room Air Nasal Cannula Oxygen Flow Rate (L/min) 2 04/03/25 16:54 04/03/25 17:48 04/03/25 17:56 Temperature 98.1 F Temperature Source Oral Pulse Rate 101 H Respiratory Rate 18 Respiratory Effort Short of Breath Respiratory Depth Respiratory Pattern Blood Pressure 127/52 H Blood Pressure Mean 77 Blood Pressure Source Monitor Blood Pressure Position Semi-Fowlers Blood Pressure Location Left Arm Pulse Ox 92 93 Oxygen Delivery Method Nasal Cannula Nasal Cannula Nasal Cannula Oxygen Flow Rate (L/min) 5 7 7 04/03/25 19:51 04/03/25 20:00 04/03/25 20:00 Temperature 98.5 F 98 F Temperature Source Temporal Temporal Pulse Rate 79 79 Respiratory Rate 16 16 Respiratory Effort Normal Non-Labored Respiratory Depth Normal Respiratory Pattern Normal Blood Pressure 121/57 H 121/57 H Blood Pressure Mean 78 78 Blood Pressure Source Monitor Monitor Blood Pressure Position Supine Semi-Fowlers Blood Pressure Location Left Arm Right Arm Pulse Ox 95 95 Oxygen Delivery Method Nasal Cannula Nasal Cannula Nasal Cannula Oxygen Flow Rate (L/min) 2 2 2 04/03/25 20:10 04/04/25 02:14 04/04/25 07:47 Temperature 97.8 F 97.8 F Temperature Source Temporal Temporal Pulse Rate 81 80 Respiratory Rate 16 18 Respiratory Effort Respiratory Depth Respiratory Pattern Blood Pressure 104/53 L 139/65 H Blood Pressure Mean 70 89 Blood Pressure Source Monitor Monitor Blood Pressure Position Semi-Fowlers Supine Blood Pressure Location Left Arm Left Arm Pulse Ox 95 94 91 Oxygen Delivery Method Nasal Cannula Nasal Cannula Nasal Cannula Oxygen Flow Rate (L/min) 2 2 3 04/04/25 07:52 04/04/25 07:55 04/04/25 10:03 Temperature Temperature Source Pulse Rate 80 Respiratory Rate Respiratory Effort Normal Non-Labored Respiratory Depth Normal Respiratory Pattern Normal Blood Pressure Blood Pressure Mean Blood Pressure Source Blood Pressure Position Blood Pressure Location Pulse Ox 95 Oxygen Delivery Method Nasal Cannula Nasal Cannula Oxygen Flow Rate (L/min) 3 2 04/04/25 12:02 04/04/25 12:35 Temperature 97.8 F 97.8 F Temperature Source Temporal Pulse Rate 80 80 Respiratory Rate 18 18 Respiratory Effort Respiratory Depth Respiratory Pattern Blood Pressure 129/93 H 129/93 H Blood Pressure Mean 105 Blood Pressure Source Monitor Blood Pressure Position Right Lateral Blood Pressure Location Left Arm Pulse Ox 89 89 Oxygen Delivery Method Nasal Cannula Room Air Oxygen Flow Rate (L/min) 3 3 Weight Weight: 89.3 kg Body Mass Index (BMI) 29.8 Physical Exam Narrative Left hip has shortening and external rotation. Left hip has pain on palpation. No pain at the righthip. No pain with moving the right hip. SCDs are on. Shehad no calf pain. She can gently plantarflex and dorsiflex toes and ankles. Distal pulses intact. Skin intact about the left hip. Lab / Micro Data Attestation: I reviewed the patient's lab results. 04/04/25 04:40 04/04/25 04:40 Labs: Laboratory Results - last 24 hr 04/03/25 14:35: WBC 17.4 H, RBC 4.08 L, Hgb 11.8 L, Hct 37.3, MCV 91.4, MCH 28.9, MCHC 31.6 L, RDW Std Deviation 70.0 H, RDW Coeff of Jose Alberto 21.3 H, Plt Count 236, MPV 9.6, Immature Gran % (Auto) 0.800,Neut % (Auto) 86.5 H, Lymph % (Auto)4.3 L, [place] % (Auto) 8.1, Eos % (Auto) 0.1, Baso % (Auto) 0.2, Absolute Neuts (auto) 15.0 H, Absolute Lymphs (auto) 0.75 L, Nucleated RBC % 0, Anisocytosis 1+, PT 24.1 H, INR 2.1, APTT 40.9 H, Sodium 135, Potassium 4.4, Chloride 101, Carbon Dioxide 22.0, Anion Gap 12, BUN 18, Creatinine 1.34 H, Estim Creat Clear Calc 36.41 L, Est GFR (MDRD) Non-Af 39 L, BUN/Creatinine Ratio 13.5, Glucose 181H, Calcium 9.2, NT pro BNP II 1850 H 04/03/25 21:43: POC Glucose 174 H 04/04/25 04:40: WBC 9.5, RBC 3.87 L, Hgb 11.3 L, Hct 35.4 L, MCV 91.5, MCH 29.2,MCHC 31.9 L, RDW Std Deviation 70.1 H, RDW Coeff of Jose Alberto 21.3 H, Plt Count 211, MPV 10.2, Immature Gran % (Auto) 0.600, Neut % (Auto) 76.2 H, Lymph % (Auto) 11.5 L, [place] % (Auto) 9.4, Eos % (Auto) 2.1, Baso % (Auto) 0.2,Absolute Neuts (auto) 7.2, Absolute Lymphs (auto) 1.09, Nucleated RBC % 0, Anisocytosis RARE, Sodium 136, Potassium 4.5, Chloride 103, Carbon Dioxide 20.0 L, Anion Gap 13, BUN 18, Creatinine 1.34 H, Estim Creat Clear Calc 35.43 L, Est GFR (MDRD) Non-Af39 L, BUN/Creatinine Ratio 13.5, Glucose 118 H,Calcium 8.9, Blood Type O POSITIVE, Antibody Screen NEGATIVE 04/04/25 06:14: POC Glucose 123 H 04/04/25 10:56: POC Glucose 137 H Imaging Radiology Impression Chest X-Ray 04/03/25 14:09 IMPRESSION: Left thoracic transvenous pacemaker with atrial and ventricular leads, stable inposition. A prominently calcified aorta is noted. Mild cardiomegaly is seen. Increased interstitial markings are seen, concerning for (but not diagnostic of)mild interstitial pulmonary edema. No focal infiltrate is noted. No pleural effusion or pneumothorax is seen. No acute osseous change is seen. Reading [id number] 04/03/25 14:09 IMPRESSION: Nondisplaced impacted fracture of the subcapital region of the proximal left femur. Soft tissue swelling. Reading Location: [facility]- Pelvis X-Ray 04/03/25 14:09 IMPRESSION: Residual contrast material is seen within at least 2 sigmoid diverticula. Significant degenerative changes are seen of the visualized lower lumbar spine. Mild sacroiliac joint degenerative changes are noted. Deformity of the left femoral neck is seen, concerning for possible basicervicalmildly impacted fracture. Additional imaging of the left hip may be performed, at this time. Reading [id number] 04/03/25 15:00 IMPRESSION: CHRONIC CHANGES. NO ACUTE FINDINGS. Reading Location: [facility] 04/03/25 15:00 IMPRESSION: DEGENERATIVE CHANGES OF THE CERVICAL SPINE. NO EVIDENCE OF SIGNIFICANT OSSEOUS CENTRAL CANAL OR NEURAL FORAMINAL STENOSIS. Reading Location: [facility] Assessment & Plan Assessment/Plan (1) Closed left hip fracture: QUALIFIERS: Encounter type: initial encounter Qualified Code(s): S72.002A - Fracture of unspecifiedpart of neck of left femur, initial encounterfor closed fracture PLAN: Her diagnosis and treatment options regarding her left displaced femoral neck fracture discussed with her and her family at length. Surgical and nonsurgical options discussed. I recommended cemented hip arthroplasty. They did wish to proceed. Risk of surgery including but not limited to from operative or postoperative complications. Risk of anesthetic complications such as heart attacks, strokes, seizures, or . Risk of infections. Risk of damage to nerves arteries tendons. Risk of inadvertent fractures or dislocations. Risk of bone or wound healing complications. Possibility of nonunion malunion pain stiffness weakness. Possible need for further surgery such as hardware removal. Risk of DVT PE and other potential complications could lead to or disability explained. No guarantees were stated or implied. All of their questions were answered. Appropriate informed consent was obtained and signed for surgical intervention. Patient has been evaluated by the medical service and anesthesia service. She has been deemed safe for surgery. She did have a dose of Xarelto seemingly yesterday morning. I explained the risk of proceeding versus the risk of postponing surgery. We decided to proceed. Patient will be on Ancef before and after surgery. We will resume her Xarelto tomorrow. She will continue on the medical service. 04/04/25 1448 Cosigner Signature (if applicable): CC: Dr. Victor M Rocha MD~ Signed [facility]09-23-2025 Procedure note [facility] Medical Records Department [address] [place] [address] Operative Report 04/04/25 1437 MR#: [id number] Acct: [id number] Name: GUDELIA GUPTA Rep #:[id number] : 1940 84 From: Adonis Garcia PCP: Dr. Victor M Rocha MD Status:AD M IN Location: [facility] [place] [id number] Operative Report (Standard) Operative Information Date of Procedure: 04/04/25 Pre-Operative Diagnosis: Displaced left femoral neck fracture Post-Operative Diagnosis: Same Surgery/Procedure Performed: Left hip cemented hemiarthroplasty drilling machine runner: Yes Cementer Machine Joiner: Destiny Hilario Tasks completed by fitter's assistant: Closing and Implanting device Additional restaurant assistant manager?: No Type of Anesthesia: General RN Documented Start/Stop Times: Operation Date: 04/04/25 12:30 Case Time Into Pre-Op 04/04/25 11:38 Out of Pre-Op 04/04/25 12:54 Into Room 04/04/25 12:55 Anesthesia Start 04/04/25 12:56 Procedure Start 04/04/25 13:30 Procedure Start Time: 13:30 Procedure Stop Time: 14:39 Select all DRAINS/GRAFTS/IMPLANTS that apply: Prosthetic device Prosthetic device details: [place] cemented bipolar hemiarthroplasty Estimated Blood Loss: 300 Specimen collected: No Description of surgery: Indications for surgery : Patient is a (84) -year-old that fell yesterday fracturing the involved hip. Appropriate informed consent was obtained and signed. Appropriate medical workup was performed preoperatively and patient wasdeemed safe for surgery by the anesthesia department registered dental assistant rda, PA was utilized throughout the entire procedure. They were vital in helping with patient positioning, holding of retractors, exposing the tissues adequately for safe completion of the procedure including cutting of the bone, helping baking powder mixer appropriate alignment and sizing of the components, implantation of the components, as well as wound closure, bandage application, andsafe patient transfer. Without surgical services manager, physician restaurant assistant manager, surgical time would have been significantly increased, and surgical outcome would have been less optimal. Operative findings: Patient had displaced comminuted femoral neck fracture. Weused a Lila Accolade C stem size #5 cemented. Bipolar 49 mm femoral head with a +4 neck length. This reproduced there anatomy nicely. Clinically good leg lengths were noted. Good hip stability through range of motion with no undue pistoning. Standard wound closure in layers, followed by emily, followed by Mepilex dressing Details of procedure: Patient was taken to the operating room and transferred tothe operating table. Given appropriate anesthetic agent by that department. Patient was then rolled into a lateral decubitus position with the involved painful hip up in the air. Appropriate timeouts had been performed.Hip had been appropriately marked with my initials. Padded anterior and posterior position was utilized. Axillary roll placed. JUAN DANIEL hose and SCDs on the nonoperative limb utilized throughout the procedure. Operative lower extremity was prepped padded and draped in the usual orthopedic sterile fashion for the procedure. I injected the pain relieving solution in the standard sterile technique of thesoft tissues of the hip carefully. Incision was made curving over the tip of the greater trochanterposteriorly. Full thickness skin flaps are raised down on the fascia maricarmen. Fascia maricarmen was opened in length with our incision. Charnley self- retaining hip retractor was carefully placed by the surgeon. Leg was appropriately rotated by the restaurant assistant manager. Retractor was used tolift the abductors anteriorly to visualize the piriformis tendon and external rotators. Piriformis tendon and external rotators released off the greater trochanter with the Bovie. Tagging suture was placed in each of these separately. We then split the tissue superior to the piriformis tendon through capsule and onto the pelvis. Acetabular labrum was preserved. Retractors were carefully placed around the femoral neck. Displaced unstable femoral neck fracture identified. cutting guide was utilized to map out the proposed cut approximately 1 fingerbreadth above the lesser trochanter. This femoral neck cut was carried out with a saw. Fractured femoral head removed from the acetabulum and measured and inspected. Appropriate trial was utilized. A proximal femoral elevator utilized. We used a sharp awl entering down inside the bone of the proximal femur. Utilized the Lumiary cutting osteotome the proximal lateral greater trochanteric region. The fragment removed. Broaching was then done from the smallest broach, upto the appropriate size. Good stability was confirmed. We then trialed the construct with a standard neck length and appropriate sized femoral head. We were happy with the construct. Good stability to flexion, rotation. At this point trials removed. 2 full batches of antibiotic bone cement were mixed. 2 sponges were placed in the acetabulum we prepared the canal with brushing. Cement restrictor was placed down to the appropriate depth. It was thoroughly irrigated clean and dry. When the cement was as the appropriate texture, we pressurized cement downin the femoral canal. The appropriate size stem then hammered into the proximalfemur and seated down to a similar position as the trial had. Excess bone cement removed. Stem was held still while cement fully hardened. Pain relieving solution was injected while this was occurring. The cement was fully hardened, sponges were removed from the acetabulum. We now again trialed and appropriate neck length decided upon. It was then opened. Now impacted the appropriate sized femoral head, neck construct onto the clean dried trunion. Was noted to be stable. Hip was inspected, and joint was reduced for a final time. Good hip stability and leg lengths noted. This was then irrigated with saline and cleaned. We irrigated with sterile Betadine. We also did a Tranexamic acid 2 g joint wash. Next the remainder of the pain relieving solution was injected carefully throughout the soft tissues of the hip joint. Closure was carried out with a combination of #1 Vicryl repairing the hip capsule as well as piriformis tendon and external rotators to bone, running #2 strata fix in the fascia maricarmen, followed by midlayer #1 Vicryl with #1 strata fix running. Next running 0 strata fix, followed by skin emily, Xeroform, Mepilex dressing. We placed JUAN DANIEL hose and SCD on the operative leg. Patient awoken from the anesthetic and transferred back to room bed in recovery room in satisfactory condition. Patient will be admitted to the hospital. Hospitalist service will continue to manage the medical issues. We will resume Xarelto tomorrow. Weightbearing as tolerated. Follow left hip dislocation precautions. Hopeful discharge to home or ECF or home in 1-2 days. This note was generated with [employer] dictation software. It may contain incorrect words, spelling, and punctuation that were not noted in checking the note before signing. Surgical Findings: Left hip fracture Complications Complications: No Admit VTE Documentation VTE Present on Admission: No VTE Mechan Device Prophylaxis: SCD's and Thigh High JUAN DANIEL Hose VTE Pharm Prophylaxis ordered?: Yes 04/04/25 0913 Cosigner Signature (if applicable): CC: Dr. Victor M Rocha MD; Dr. Ashli Bonner MD; Dr. Adonis Rodriguez MD~ Signed [facility]09-23-2025 Consult note Author [facility] Note Date/Time April 04, 2025 12:37pm [facility] Medical Records Department [address] [place] [address] Pre-Anesthesia Evaluation 04/04/25 1221 MR#: [id number] Acct: [id number] Name: GUDELIA GUPTA Rep #:[id number] : 1940 84 From: Niranjan Turner MD PCP: Dr. Victor M Rocha MD Status:AD M IN Y Race: C Location: [facility] [place] -1 ASA Classification* ASA Classification ASA Classification: 3 Assessment & Plan Anesthesia* Anesthesia Assessment Anesthesia Assessment: Discussed sedation and/or anesthesia options, risks, benefits, and alternatives with patient/parents/legal guardian/POA. Questions invited. The patient/parents/legal guardian/POA seems to understand and agrees to proceedwith anesthesia plan. Reviewed the physical assessment, medical history, allergy history and patient home medications list prior to surgery/procedure/anesthetic and documented any changes. Performed airway and anesthesia risk assessments. Anesthesia Type Anesthesia Type: General History Source History Obtained from:: Patient and Chart Anesthesia Focused Assessment* Temperature: 97.8 F Pulse Rate: 80 Blood Pressure: 129/93 Respiratory Rate: 18 Pulse Ox: 89 Oxygen Delivery Method: Room Air Oxygen Flow Rate (L/min): 3 Airway Assessment Mouth opens: >3 cm Mallampati Score: III Teeth Condition: Dentures (Upper dentures will come out.) and Missing (Missing several teeth on the bottom. The rest are tight.) Neck Range of motion (ROM): Limited ROM (Severe Restriction) Labs Anesthesia Preop lab: CBC WBC, (4.4-11.0) 9.5 K/mm3 Today, 04:40 RBC, (4.2-5.4) 3.87 M/mm3 L Today, 04:40 Hgb, (12.0-15.0) 11.3 g/dL L Today, 04:40 Hct, (37-47) 35.4 % L Today, 04:40 Plt Count, (150-450) 211 K/mm3 Today, 04:40 CHEMISTRY Potassium, (3.3-5.1) 4.5 mmol/L Today, 04:40 Sodium, (133-145) 136 mmol/L Today, 04:40 Magnesium, (1.5-2.2) 2.2 mg/dL 02/08/25, 19:58 Phosphorus, (2.7-4.5) 3.4 mg/dL 02/10/25, 06:24 BUN, (4-19) 18 mg/dL Today, 04:40 Creatinine, (0.70-1.20) 1.34 mg/dL H Today, 04:40 Glucose, (70-99) 118 mg/dL H Today, 04:40 POC Glucose, (74-106) 137 mg/dL H Today, 10:56 TSH, (0.300-4.200) 3.080 uIU/mL 02/08/25, 19:58 COAG PT, (11.7-14.9) 24.1 SECONDS H 04/03/25, 14:35 Pre-Assessment Diagnosis/Proposed Procedure Planned Operative Procedure(s): Left hemiarthroplasty hip, cemented Anesthesia History 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 When Was Last Pacemaker Check 02/06/25 04/03/25 21:46 QUESTION #4 FULL TEXT: You/Your Family Experience fever (hyperthermia) with Anesthesia Last Oral Intake Last Oral intake: Last Oral Intake NPO since 0000 Meds taken in AM with sips of water? 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 decorator Female HX of Motion Sickness HX of N/V After Surgery Non-Smoker Duration of Surgery greater than 60 minutes Number of Risk Factors PONV Score Height & Weight Height & Weight: Anesthesia: Height & Weight Height 5 ft 8 in 04/03/25 17:31 Weight: 89.3 kg 04/04/25 06:00 Body Mass Index (BMI) 29.8 04/04/25 06:00 Respiratory Assessment Respiratory Assessment - fresh foods cake decorator: Respiratory Tract Infection Hx - fresh foods cake decorator Hx Respiratory Tract Infection No 04/03/25 21:46 STOP Sleep Apnea STOP Sleep Apnea - fresh foods cake decorator: STOP Sleep Apnea - fresh foods cake decorator Hx Hypertension Yes 04/03/25 17:31 Hx Sleep Apnea No 04/03/25 17:31 CPAP No 03/25/24 15:21 BIPAP No 03/25/24 15:21 Do you snore loudly (louder No 04/03/25 17:31 than talking or can be heard Do you often feel tired/ No 04/03/25 17:31 fatigued/ sleepy during daytime? Has anyone observed you stop No 04/03/25 17:31 breathing during sleep? STOP Results Negative 04/03/25 17:31 QUESTION #5 FULL TEXT : Do you snore loudly (louder than talking or can be heard through closed doors)? 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 Specify any problems Hx of Preganancy in last 3 No 04/03/25 17:31 Months Nurse Filling Out Transfusion [facility]MESS[facility] 04/03/25 17:31 & Questions: Date: 04/03/25 04/03/25 17:31 Time: 17:46 04/03/25 17:31 Patient unable to answer at this time (ie. confused, unrespo /Reproduction History /Reproductive History - fresh foods cake decorator: /Reproductive Hx- fresh foods cake decorator Hx Now No 04/03/25 21:46 Gestational Age (in weeks): EDC: Hx Hx Para Hx Section SAB No 04/03/25 21:46 Active Medications Active Medications: Current Medications Generic Name Dose Route Start Last Admin Trade Name Freq PRN Reason Stop Dose Admin Acetaminophen 1,000 mg 04/03/25 22:00 04/04/25 05:10 Acetaminophen 500 Mg Tablet PO Not Given Q8 RILEY Albuterol Sulfate 2.5 mg 04/03/25 17:47 Albuterol 2.5 Mg/3 Ml Vial.Neb. INHALATION Q2H PRN PRN SOB &/OR WHEEZING Amitriptyline HCl 50 mg 04/03/25 22:00 04/03/25 21:38 Amitriptyline 25 Mg Tablet PO 50 mg QHS RILEY Administration Atorvastatin Calcium 10 mg 04/03/25 22:00 04/03/25 21:38 Atorvastatin Calcium 10 Mg Tablet PO 10 mg QHS RILEY Administration Buspirone HCl 15 mg 04/03/25 22:00 04/04/25 05:10 Buspirone 15 Mg Tablet PO 15 mg TID RILEY Administration Sodium Chloride 77.9 ml/ 0 ml 04/04/25 12:30 Ropivacaine 200 mg/ OPERA.SITE 04/04/25 12:31 Epinephrine HCl 0.6 mg/ INTRAOP ONE Ketorolac Tromethamine 30 mg/ Morphine Sulfate 5 mg Ferrous Sulfate 325 mg 04/04/25 08:00 04/04/25 07:38 Ferrous Sulfate 325 Mg Tablet PO Not Given DAILYCM RILEY Furosemide 40 mg 04/04/25 10:00 04/04/25 07:38 Furosemide 40 Mg Tablet PO Not Given DAILY RILEY Protocol Glucagon 1 mg 04/03/25 17:47 Glucagon 1 Mg/Ml Syringe IM X1 PRN HYPOGLYCEMIA Protocol Cefazolin Sodium 2 gm/ Sodium 110 mls @ 200 mls/hr 04/04/25 12:30 Chloride IV 04/04/25 13:02 INTRAOP ONE Tranexamic Acid 1,000 mg/ 110 mls @ 660 mls/hr 04/04/25 12:30 Sodium Chloride IV 04/04/25 12:39 PREOP ONE Sodium Chloride 250 mls @ 15 mls/hr 04/03/25 17:32 IV .[id number] PRN Additional IVPB Infusion Sodium Chloride 250 mls @ 15 mls/hr 04/03/25 17:32 IV .[id number] PRN Saline Flush Dextrose 250 mls @ 0 mls/hr 04/03/25 17:47 Dextrose 10%-Water IV .Q0M PRN HYPOGLYCEMIA Protocol As Directed Lactated Ringer's 1,000 mls @ 15 mls/hr 04/04/25 11:45 04/04/25 11:56 IV 15 mls/hr .Q48H RILEY Administration Insulin Human Lispro 0 unit 04/03/25 22:00 04/04/25 10:53 Insulin Lispro 100 Unit/Ml Insuln.Pen SC Not Given ACHS RILEY Protocol Levothyroxine Sodium 100 mcg 04/04/25 06:00 04/04/25 05:10 Levothyroxine 100 Mcg Tablet PO 100 mcg DAILY@0600 RILEY Administration Melatonin 10 mg 04/03/25 17:47 Melatonin 10 Mg Tablet PO QHS PRN PRN INSOMNIA Metoprolol Succinate 50 mg 04/04/25 10:00 04/04/25 07:55 Metoprolol(Xl)Succ 50 Mg Tablet PO 50 mg DAILY RILEY Administration Protocol Morphine Sulfate 2 - 4 mg 04/03/25 17:47 04/04/25 11:00 Morphine 2 Mg/Ml Syringe IV 2 mg Q3H PRN PRN Administration Pain Score 6-10 Ondansetron HCl 4 mg 04/03/25 17:47 Ondansetron 4 Mg/2 Ml Vial IV Q8H PRN PRN NAUSEA/VOMITING Oxycodone HCl 5 mg 04/03/25 22:00 04/04/25 05:10 Oxycodone 5 Mg Tablet PO 5 mg TID RILEY Administration Pantoprazole Sodium 40 mg 04/04/25 10:00 04/04/25 07:38 Pantoprazole Sodium 40 Mg Tablet PO Not Given DAILY RILEY Potassium Chloride 40 meq 04/03/25 17:47 04/04/25 07:38 Potassium Chloride Oral Tablet 20 Meq PO Not Given DAILY RILEY Senna/Docusate Sodium 2 tablet 04/03/25 22:00 04/04/25 07:38 Senna/Docusate Sodium 1 Tablet PO Not Given BID RILEY Sodium Chloride 10 - 40 ml 04/03/25 17:32 04/03/25 19:45 0.9% Saline Lock 10 Ml Syringe IV 10 ml UD PRN Administration SALINE FLUSH [facility] Medical History Overweight (BMI 25.0-29.9) Coronary artery disease Iron deficiency anemia History of non-ST elevation myocardial infarction (NSTEMI) (2013) Longstanding persistent atrial fibrillation Essential (primary) hypertension Anxiety Hypothyroidism Hyperlipidemia Secondary pulmonary arterial hypertension Atherosclerosis of coronary artery of [place] heart without angina pectoris Paroxysmal atrial fibrillation Paroxysmal atrial flutter Sick sinus syndrome Home Medications ?Medication ?Instructions ?Recorded ?Last Taken ?Type buspirone 15 mg tablet 15 mg PO TID ANXIETY 3 04/04/25 History omeprazole 40 mg capsule,delayed 40 mg PO DAILY ACID R EFLUX 06/02/13 04/02/25 History release nitroglycerin 0.4 mg sublingual 0.4 mg sublingual Q5M PRN CHEST 04/21/15 Unknown History tablet PAIN amitriptyline 50 mg tablet 50 mg PO QHS DEPRESSION 03/0404/02/25 History empagliflozin 10 mg tablet 10 mg PO DAILY DIABETES 03/0404/03/25 History (Jardiance) ketotifen fumarate 0.025 % (0.035 1 drp ophthalmic (ey e) BID PRN 02/17/23 04/02/25 History %) eye drops ([place]) ITCHING/ALLERGIES levothyroxine 100 mcg tablet 100 mcg PO DAILY THYROID 12/14/23 04/04/25 History (Synthroid) furosemide 40 mg tablet (Lasix) 40 mg PO DAILY water p ill #60 tabs 12/17/23 04/03/25 Rx rivaroxaban 20 mg tablet (Xarelto) 20 mg PO QPM #90 ta bs 10/06/24 04/02/25 Rx losartan 100 mg tablet 100 mg PO DAILY blood pressu re #90 11/18/24 04/03/25 Rx tabs potassium chloride 20 mEq 40 meq (2 x 20 mEq) PO QDAY #90 11/21/24 04/02/25 Rx tablet,extended release(part/cryst) tabs metoprolol succinate 50 mg 50 mg PO DAILY heart/BP #90 tabs 11/23/24 04/04/25 Rx tablet,extended release 24 hr simvastatin 20 mg tablet 20 mg PO QHS CHOLESTEROL #9 0 tabs 12/22/24 04/02/25 Rx amlodipine 10 mg tablet 10 mg PO DAILY 02/08/2503/14 History ferrous sulfate 325 mg (65 mg 65 mg PO DAILY 02/08/25 04/03/25 History iron) tablet (FeroSul) oxycodone-acetaminophen 5 mg-325 1 tab PO TID PRN PRN pain 02/08/25 04/03/25 History mg tablet ascorbic acid (vitamin C) 500 mg 500 mg PO BID 5 04/03/25 History tablet (Vitamin C) Allergy/AdvReac Type Severity Reaction Status Date / Time poison fany extract (Poison Allergy Rash Verified 04/03/25 13:18 Fany Extract) Sulfa (Sulfonamide Allergy Hives Verified 04/03/25 13:18 Antibiotics) Family History Mother Cancer Father Cancer Brother CAD (coronary artery disease) Sister CAD (coronary artery disease) Surgical History S/P kyphoplasty History of tubal ligation History of appendectomy History of hysterectomy History of left heart catheterization (10/09/13) History of coronary artery stent placement (09/2010) Hx of atrioventricular node ablation (03/31/16) Presence of cardiac pacemaker (04/26/15) Social History household members: spouse Smoking Status: Former smoker how long ago did patient quit smokin's alcohol intake: never substance use type: does not use caffeine: Yes Type: coffee Number of servings: 3 Review of Systems (Anesthesia) ROS Narrative System reviewed and no additional complaints, except as documented. 04/04/25 1237 <Electronically signed by Niranjan arzola MD> Date _ Niranjan Turner MD Cosigner Signature: Date CC: ~ Signed [facility] Work Phone: [phone]) 591-806909-23-2025 Consult note [facility] Medical Records Department [address] [place] [address] Pre-Anesthesia Evaluation 04/04/25 1221 MR#: [id number] Acct: [id number] Name: GUDELIA GUPTA Rep #:[id number] : 1940 84 From: Niranjan Turner MD PCP: Dr. Victor M Rocha MD Status:AD M IN Y Race: C Location: [place] MS302 -1 ASA Classification* ASA Classification ASA Classification: 3 Assessment & Plan Anesthesia* Anesthesia Assessment Anesthesia Assessment: Discussed sedation and/or anesthesia options, risks, benefits, and alternatives with patient/parents/legal guardian/POA. Questions invited. The patient/parents/legal guardian/POA seems to understand and agrees to proceedwith anesthesia plan. Reviewed the physical assessment, medical history, allergy history and patient home medications list prior to surgery/procedure/anesthetic and documented any changes. Performed airway and anesthesia risk assessments. Anesthesia Type Anesthesia Type: General History Source History Obtained from:: Patient and Chart Anesthesia Focused Assessment* Temperature: 97.8 F Pulse Rate: 80 Blood Pressure: 129/93 Respiratory Rate: 18 Pulse Ox: 89 Oxygen Delivery Method: Room Air Oxygen Flow Rate (L/min): 3 Airway Assessment Mouth opens: >3 cm Mallampati Score: III Teeth Condition: Dentures (Upper dentures will come out.) and Missing (Missing several teeth on thebottom. The rest are tight.) Neck Range of motion (ROM): Limited ROM (Severe Restriction) Labs Anesthesia Preop lab: CBC WBC, (4.4-11.0) 9.5 K/mm3 Today, 04:40 RBC, (4.2-5.4) 3.87 M/mm3 L Today, 04:40 Hgb, (12.0-15.0) 11.3 g/dL L Today, 04:40 Hct, (37-47) 35.4 % L Today, 04:40 Plt Count, (150-450) 211 K/mm3 Today, 04:40 CHEMISTRY Potassium, (3.3-5.1) 4.5 mmol/L Today, 04:40 Sodium, (133-145) 136 mmol/L Today, 04:40 Magnesium, (1.5-2.2) 2.2 mg/dL 02/08/25, 19:58 Phosphorus, (2.7-4.5) 3.4 mg/dL 02/10/25, 06:24 BUN, (4-19) 18 mg/dL Today, 04:40 Creatinine, (0.70-1.20) 1.34 mg/dL H Today, 04:40 Glucose, (70-99) 118 mg/dL H Today, 04:40 POC Glucose, (74-106) 137 mg/dL H Today, 10:56 TSH, (0.300-4.200) 3.080 uIU/mL 02/08/25, 19:58 COAG PT, (11.7-14.9) 24.1 SECONDS H 04/03/25, 14:35 Pre-Assessment Diagnosis/Proposed Procedure Planned Operative Procedure(s): Left hemiarthroplasty hip, cemented Anesthesia History 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 When Was Last Pacemaker Check 02/06/25 04/03/25 21:46 QUESTION #4 FULL TEXT: You/Your Family Experience fever (hyperthermia) with Anesthesia Last Oral Intake Last Oral intake: Last Oral Intake NPO since 0000 Meds taken in AM with sips of water? 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 decorator Female HX of Motion Sickness HX of N/V After Surgery Non-Smoker Duration of Surgery greater than 60 minutes Number of Risk Factors PONV Score Height & Weight Height & Weight: Anesthesia: Height & Weight Height 5 ft 8 in 04/03/25 17:31 Weight: 89.3 kg 04/04/25 06:00 Body Mass Index (BMI) 29.8 04/04/25 06:00 Respiratory Assessment Respiratory Assessment - fresh foods cake decorator: Respiratory Tract Infection Hx - fresh foods cake decorator Hx Respiratory Tract Infection No 04/03/25 21:46 STOP Sleep Apnea STOP Sleep Apnea - fresh foods cake decorator: STOP Sleep Apnea - fresh foods cake decorator Hx Hypertension Yes 04/03/25 17:31 Hx Sleep Apnea No 04/03/25 17:31 CPAP No 03/25/24 15:21 BIPAP No 03/25/24 15:21 Do you snore loudly (louder No 04/03/25 17:31 than talking or can be heard Do you often feel tired/ No 04/03/25 17:31 fatigued/ sleepy during daytime? Has anyone observed you stop No 04/03/25 17:31 breathing during sleep? STOP Results Negative 04/03/25 17:31 QUESTION #5 FULL TEXT : Do you snore loudly (louder than talking or can be heard through closeddoors)? 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 Specify any problems Hx of Preganancy in last 3 No 04/03/25 17:31 Months Nurse Filling Out Transfusion [facility]MESS[facility] 04/03/25 17:31 & Questions: Date: 04/03/25 04/03/25 17:31 Time: 17:46 04/03/25 17:31 Patient unable to answer at this time (ie. confused, unrespo /Reproduction History /Reproductive History - fresh foods cake decorator: /Reproductive Hx- fresh foods cake decorator Hx Now No 04/03/25 21:46 Gestational Age (in weeks): EDC: Hx Hx Para Hx Section SAB No 04/03/25 21:46 Active Medications Active Medications: Current Medications Generic Name Dose Route Start Last Admin Trade Name Freq PRN Reason Stop Dose Admin Acetaminophen 1,000 mg 04/03/25 22:00 04/04/25 05:10 Acetaminophen 500 Mg Tablet PO Not Given Q8 RILEY Albuterol Sulfate 2.5 mg 04/03/25 17:47 Albuterol 2.5 Mg/3 Ml Vial.Neb. INHALATION Q2H PRN PRN SOB &/OR WHEEZING Amitriptyline HCl 50 mg 04/03/25 22:00 04/03/25 21:38 Amitriptyline 25 Mg Tablet PO 50 mg QHS RILEY Administration Atorvastatin Calcium 10 mg 04/03/25 22:00 04/03/25 21:38 Atorvastatin Calcium 10 Mg Tablet PO 10 mg QHS RILEY Administration Buspirone HCl 15 mg 04/03/25 22:00 04/04/25 05:10 Buspirone 15 Mg Tablet PO 15 mg TID RILEY Administration Sodium Chloride 77.9 ml/ 0 ml 04/04/25 12:30 Ropivacaine 200 mg/ OPERA.SITE 04/04/25 12:31 Epinephrine HCl 0.6 mg/ INTRAOP ONE Ketorolac Tromethamine 30 mg/ Morphine Sulfate 5 mg Ferrous Sulfate 325 mg 04/04/25 08:00 04/04/25 07:38 Ferrous Sulfate 325 Mg Tablet PO Not Given DAILYCM RILEY Furosemide 40 mg 04/04/25 10:00 04/04/25 07:38 Furosemide 40 Mg Tablet PO Not Given DAILY RILEY Protocol Glucagon 1 mg 04/03/25 17:47 Glucagon 1 Mg/Ml Syringe IM X1 PRN HYPOGLYCEMIA Protocol Cefazolin Sodium 2 gm/ Sodium 110 mls @ 200 mls/hr 04/04/25 12:30 Chloride IV 04/04/25 13:02 INTRAOP ONE Tranexamic Acid 1,000 mg/ 110 mls @ 660 mls/hr 04/04/25 12:30 Sodium Chloride IV 04/04/25 12:39 PREOP ONE Sodium Chloride 250 mls @ 15 mls/hr 04/03/25 17:32 IV .[id number] PRN Additional IVPB Infusion Sodium Chloride 250 mls @ 15 mls/hr 04/03/25 17:32 IV .[id number] PRN Saline Flush Dextrose 250 mls @ 0 mls/hr 04/03/25 17:47 Dextrose 10%-Water IV .Q0M PRN HYPOGLYCEMIA Protocol As Directed Lactated Ringer's 1,000 mls @ 15 mls/hr 04/04/25 11:45 04/04/25 11:56 IV 15 mls/hr .Q48H RILEY Administration Insulin Human Lispro 0 unit 04/03/25 22:00 04/04/25 10:53 Insulin Lispro 100 Unit/Ml Insuln.Pen SC Not Given ACHS [facility] Protocol Levothyroxine Sodium 100 mcg 04/04/25 06:00 04/04/25 05:10 Levothyroxine 100 Mcg Tablet PO 100 mcg DAILY@0600 RILEY Administration Melatonin 10 mg 04/03/25 17:47 Melatonin 10 Mg Tablet PO QHS PRN PRN INSOMNIA Metoprolol Succinate 50 mg 04/04/25 10:00 04/04/25 07:55 Metoprolol(Xl)Succ 50 Mg Tablet PO 50 mg DAILY RILEY Administration Protocol Morphine Sulfate 2 - 4 mg 04/03/25 17:47 04/04/25 11:00 Morphine 2 Mg/Ml Syringe IV 2 mg Q3H PRN PRN Administration Pain Score 6-10 Ondansetron HCl 4 mg 04/03/25 17:47 Ondansetron 4 Mg/2 Ml Vial IV Q8H PRN PRN NAUSEA/VOMITING Oxycodone HCl 5 mg 04/03/25 22:00 04/04/25 05:10 Oxycodone 5 Mg Tablet PO 5 mg TID RILEY Administration Pantoprazole Sodium 40 mg 04/04/25 10:00 04/04/25 07:38 Pantoprazole Sodium 40 Mg Tablet PO Not Given DAILY RILEY Potassium Chloride 40 meq 04/03/25 17:47 04/04/25 07:38 Potassium Chloride Oral Tablet 20 Meq PO Not Given DAILY RILEY Senna/Docusate Sodium 2 tablet 04/03/25 22:00 04/04/25 07:38 Senna/Docusate Sodium 1 Tablet PO Not Given BID [facility] Sodium Chloride 10 - 40 ml 04/03/25 17:32 04/03/25 19:45 0.9% Saline Lock 10 Ml Syringe IV 10 ml UD PRN Administration SALINE FLUSH PFSH Medical History Overweight (BMI 25.0-29.9) Coronary artery disease Iron deficiency anemia History of non-ST elevation myocardial infarction (NSTEMI) (2013) Longstanding persistent atrial fibrillation Essential (primary) hypertension Anxiety Hypothyroidism Hyperlipidemia Secondary pulmonary arterial hypertension Atherosclerosis of coronary artery of [place] heart without angina pectoris Paroxysmal atrial fibrillation Paroxysmal atrial flutter Sick sinus syndrome Home Medications ?Medication ?Instructions ?Recorded ?Last Taken ?Type buspirone 15 mg tablet 15 mg PO TID ANXIETY 3 04/04/25 History omeprazole 40 mg capsule,delayed 40 mg PO DAILY ACID R EFLUX 06/02/13 04/02/25 History release nitroglycerin 0.4 mg sublingual 0.4 mg sublingual Q5M PRN CHEST 04/21/15 Unknown History tablet PAIN amitriptyline 50 mg tablet 50 mg PO QHS DEPRESSION 03/0404/02/25 History empagliflozin 10 mg tablet 10 mg PO DAILY DIABETES 03/0404/03/25 History (Jardiance) ketotifen fumarate 0.025 % (0.035 1 drp ophthalmic (ey e) BID PRN 02/17/23 04/02/25 History %) eye drops (Alaway) ITCHING/ALLERGIES levothyroxine 100 mcg tablet 100 mcg PO DAILY THYROID 12/14/23 04/04/25 History (Synthroid) furosemide 40 mg tablet (Lasix) 40 mg PO DAILY water p ill #60 tabs 12/17/23 04/03/25 Rx rivaroxaban 20 mg tablet (Xarelto) 20 mg PO QPM #90 ta bs 10/06/24 04/02/25 Rx losartan 100 mg tablet 100 mg PO DAILY blood pressu re #90 11/18/24 04/03/25 Rx tabs potassium chloride 20 mEq 40 meq (2 x 20 mEq) PO QDAY #90 11/21/24 04/02/25 Rx tablet,extended release(part/cryst) tabs metoprolol succinate 50 mg 50 mg PO DAILY heart/BP #90 tabs 11/23/24 04/04/25 Rx tablet,extended release 24 hr simvastatin 20 mg tablet 20 mg PO QHS CHOLESTEROL #9 0 tabs 12/22/24 04/02/25 Rx amlodipine 10 mg tablet 10 mg PO DAILY 02/08/2503/14 History ferrous sulfate 325 mg (65 mg 65 mg PO DAILY 02/08/25 04/03/25 History iron) tablet (FeroSul) oxycodone-acetaminophen 5 mg-325 1 tab PO TID PRN PRN pain 02/08/25 04/03/25 History mg tablet ascorbic acid (vitamin C) 500 mg 500 mg PO BID 5 04/03/25 History tablet (Vitamin C) Allergy/AdvReac Type Severity Reaction Status Date / Time poison fany extract (Poison Allergy Rash Verified 04/03/25 13:18 Fany Extract) Sulfa (Sulfonamide Allergy Hives Verified 04/03/25 13:18 Antibiotics) Family History Mother Cancer Father Cancer Brother CAD (coronary artery disease) Sister CAD (coronary artery disease) Surgical History S/P kyphoplasty History of tubal ligation History of appendectomy History of hysterectomy History of left heart catheterization (10/09/13) History of coronary artery stent placement (09/2010) Hx of atrioventricular node ablation (03/31/16) Presence of cardiac pacemaker (04/26/15) Social History household members: spouse Smoking Status: Former smoker how long ago did patient quit smokin's alcohol intake: never substance use type: does not use caffeine: Yes Type: coffee Number of servings: 3 Review of Systems (Anesthesia) ROS Narrative System reviewed and no additional complaints, except as documented. 04/04/25 1237 ness MORRISON> Date _ Niranjan Turner MD Cosigner Signature: Date CC: ~ Signed [facility]09-23-2025 Progress note Author Gunnar Mullen [facility] Note Date/Time April 04, 2025 10:28am [facility] Medical Records Department [address] [address] Progress Note - Hospitalist 04/04/25 0743 MR#: [id number] Acct: [id number] Name: GUDELIA GUPTA Rep #:[id number] : 1940 84 From: Gunnar Mullen DO PCP: Dr. Victor M Rocha MD Status:AD M IN Location: MS3 [id number] Reason for Visit Chief Complaint: Left hip pain after fall Subjective Subjective Having pain with movement. Objective Data Objective Data Vital Signs: Vital Signs Temp Pulse Resp BP Pulse Ox O2 Del Method O2 Flow Rate 36.6 C 81 16 104/53 L 94 Nasal Cannula 2 04/04/25 02:14 04/04/25 02:14 04/04/25 02:14 04/04/25 02:14 04/04/25 02:14 04/04/25 02:14 04/04/25 02:14 Oxygen Flow Rate (L/min) 2 Oxygen Delivery Method Nasal Cannula Weight: 89.3 kg Body Mass Index (BMI) 29.8 Intake & Output: Intake and Output for Last 24 Hours 04/02/25 04/03/25 04/04/25 23:59 23:59 23:59 Intake Total 1000 / 1000 Output Total 2000 / 4000 2550 / 2550 Balance -1000 / -3000 -2550 / -2550 Lab / Micro Data 04/04/25 04:40 04/04/25 04:40 Labs: Laboratory Results - last 24 hr 04/03/25 14:35: WBC 17.4 H, RBC 4.08 L, Hgb 11.8 L, Hct 37.3, MCV 91.4, MCH 28.9, MCHC 31.6 L, RDW Std Deviation 70.0 H, RDW Coeff of Jose Alberto 21.3 H, Plt Count 236, MPV 9.6, Immature Gran % (Auto) 0.800, Neut % (Auto) 86.5 H, Lymph % (Auto)4.3 L, [place] % (Auto) 8.1, Eos % (Auto) 0.1, Baso % (Auto) 0.2, Absolute Neuts (auto) 15.0 H, Absolute Lymphs (auto) 0.75 L, Nucleated RBC % 0, Anisocytosis 1+, PT 24.1 H, INR 2.1, APTT 40.9 H, Sodium 135, Potassium 4.4, Chloride 101, Carbon Dioxide 22.0, Anion Gap 12, BUN 18, Creatinine 1.34 H, Estim Creat Clear Calc 36.41 L, Est GFR (MDRD) Non-Af 39 L, BUN/Creatinine Ratio 13.5, Glucose 181H, Calcium 9.2, NT pro BNP II 1850 H 04/03/25 21:43: POC Glucose 174 H 04/04/25 04:40: WBC 9.5, RBC 3.87 L, Hgb 11.3 L, Hct 35.4 L, MCV 91.5, MCH 29.2,MCHC 31.9 L, RDW Std Deviation 70.1 H, RDW Coeff of Jose Alberto 21.3 H, Plt Count 211, MPV 10.2, Immature Gran % (Auto) 0.600, Neut % (Auto) 76.2 H, Lymph % (Auto) 11.5 L, [place] % (Auto) 9.4, Eos % (Auto) 2.1, Baso % (Auto) 0.2, Absolute Neuts (auto) 7.2, Absolute Lymphs (auto) 1.09, Nucleated RBC % 0, Anisocytosis RARE, Sodium 136, Potassium 4.5, Chloride 103, Carbon Dioxide 20.0 L, Anion Gap 13, BUN 18, Creatinine 1.34 H, Estim Creat Clear Calc 35.43 L, Est GFR (MDRD) Non-Af39 L, BUN/Creatinine Ratio 13.5, Glucose 118 H, Calcium 8.9, Blood Type O POSITIVE, Antibody Screen NEGATIVE 04/04/25 06:14: POC Glucose 123 H Radiography Diagnostic Testing: Radiology Impression Chest X-Ray 04/03/25 14:09 IMPRESSION: Left thoracic transvenous pacemaker with atrial and ventricular leads, stable inposition. A prominently calcified aorta is noted. Mild cardiomegaly is seen. Increased interstitial markings are seen, concerning for (but not diagnostic of)mild interstitial pulmonary edema. No focal infiltrate is noted. No pleural effusion or pneumothorax is seen. No acute osseous change is seen. Reading [id number] 04/03/25 14:09 IMPRESSION: Nondisplaced impacted fracture of the subcapital region of the proximal left femur. Soft tissue swelling. Reading Location: [facility]1 Pelvis X-Ray 04/03/25 14:09 IMPRESSION: Residual contrast material is seen within at least 2 sigmoid diverticula. Significant degenerative changes are seen of the visualized lower lumbar spine. Mild sacroiliac joint degenerative changes are noted. Deformity of the left femoral neck is seen, concerning for possible basicervicalmildly impacted fracture. Additional imaging of the left hip may be performed, at this time. Reading Location: -[id number] Brain CT 04/03/25 15:00 IMPRESSION: CHRONIC CHANGES. NO ACUTE FINDINGS. Reading Location: [facility] 04/03/25 15:00 IMPRESSION: DEGENERATIVE CHANGES OF THE CERVICAL SPINE. NO EVIDENCE OF SIGNIFICANT OSSEOUS CENTRAL CANAL OR NEURAL FORAMINAL STENOSIS. Reading Location: [facility]--1 Physical Exam Const alert and no apparent distress HEENT head/scalp atraumatic and moist oral mucous membranes Resp normal respiratory effort, no retractions, no use of accessory muscles and clearto auscultation bilaterally Cardio regular rate, regular rhythm, S1 normal heart sound and S2 normal heart sound GI normal to inspection, nondistended, normoactive bowel sounds, soft to palpation and non-tender Neuro Sensorium / Orientation: awake and alert Assessment & Plan Assessment/Plan (1) Closed left hip fracture: PLAN: Plan Left hip fracture * Imaging: Femur x-ray with nondisplaced impacted fracture of subcapital region of proximal left femur * Ortho consult * Pain control and scheduled bowel regimen: Will continue patient's home oxycodone 3 times daily as scheduled as reportedly she does take it regularly * Patient's last dose of Xarelto was the evening of 04/02, unsure when surgery will take place, will make patient n.p.o. at midnight until this information is obtained to verify no delays * PT/OT * Case management and social work consults for DC planning Leukocytosis: * resolved. likley reactive/demargination given fxr. * no additional work up at this time. Chronic medical conditions: * HFrEF: compensated. Last echo 03/26/2024 with EF of 45 to 50% unable to assess diastolic dysfunction with apex akinetic * History of A-fib/flutter/sick sinus syndrome with pacemaker placement-Hold home Xarelto-Metoprolol with holding parameters * Type 2 diabetes mellitus-Glucose checks and sliding scale insulin-Hold home oral hypoglycemics * hypothyroidism-Continue Synthroid * Depression/anxiety-Continue home medications * Hypertension- Continue metoprolol with holding parameters, hold other home antihypertensives to allow for pain control and patient have surgery * Hx of CAD-w/ previous stenting- Holding Xarelto, continue statin, beta-rosaura as tolerated * GERD-Continue PPI DVT ppx: SCDs Charges/Coding Visit Charges Inpatient E&M: 09030 Subs Hosp L2 04/04/25 1028 <Electronically signed by Gunnar Mullen DO> Cosigner Signature (if applicable): CC: ~ Signed [facility] Work Phone: [phone]) 825-973609-23-2025 Progress note [facility] Medical Records Department [address] [place] [id number] Progress Note - Hospitalist 04/04/25 0743 MR#: [id number] Acct: [id number] Name: GUDELIA GUPTA Rep #:[id number] : 1940 84 From: Gunnar Mullen DO PCP: Dr. Victor M Rocha MD Status:AD M IN Location: [place] [address] Reason for Visit Chief Complaint: Left hip pain after fall Subjective Subjective Having pain with movement. Objective Data Objective Data Vital Signs: Vital Signs Temp Pulse Resp BP Pulse Ox O2 Del Method O2 Flow Rate 36.6 C 81 16 104/53 L 94 Nasal Cannula 2 04/04/25 02:14 04/04/25 02:14 04/04/25 02:14 04/04/25 02:14 04/04/25 02:14 04/04/25 02:14 04/04/25 02:14 Oxygen Flow Rate (L/min) 2 Oxygen Delivery Method Nasal Cannula Weight: 89.3 kg Body Mass Index (BMI) 29.8 Intake & Output: Intake and Output for Last 24 Hours 04/02/25 04/03/25 04/04/25 23:59 23:59 23:59 Intake Total 1000 / 1000 Output Total 2000 / 3999 2550 / 2550 Balance -1000 / -3000 -2550 / -2550 Lab / Micro Data 04/04/25 04:40 04/04/25 04:40 Labs: Laboratory Results - last 24 hr 04/03/25 14:35: WBC 17.4 H, RBC 4.08 L, Hgb 11.8 L, Hct 37.3, MCV 91.4, MCH 28.9, MCHC 31.6 L, RDW Std Deviation 70.0 H, RDW Coeff of Jose Alberto 21.3 H, Plt Count 236, MPV 9.6, Immature Gran % (Auto) 0.800,Neut % (Auto) 86.5 H, Lymph % (Auto)4.3 L, [place] % (Auto) 8.1, Eos % (Auto) 0.1, Baso % (Auto) 0.2, Absolute Neuts (auto) 15.0 H, Absolute Lymphs (auto) 0.75 L, Nucleated RBC % 0, Anisocytosis 1+, PT 24.1 H, INR 2.1, APTT 40.9 H, Sodium 135, Potassium 4.4, Chloride 101, Carbon Dioxide 22.0, Anion Gap 12, BUN 18, Creatinine 1.34 H, Estim Creat Clear Calc 36.41 L, Est GFR (MDRD) Non-Af 39 L, BUN/Creatinine Ratio 13.5, Glucose 181H, Calcium 9.2, NT pro BNP II 1850 H 04/03/25 21:43: POC Glucose 174 H 04/04/25 04:40: WBC 9.5, RBC 3.87 L, Hgb 11.3 L, Hct 35.4 L, MCV 91.5, MCH 29.2,MCHC 31.9 L, RDW Std Deviation 70.1 H, RDW Coeff of Jose Alberto 21.3 H, Plt Count 211, MPV 10.2, Immature Gran % (Auto) 0.600, Neut % (Auto) 76.2 H, Lymph % (Auto) 11.5 L, [place] % (Auto) 9.4, Eos % (Auto) 2.1, Baso % (Auto) 0.2,Absolute Neuts (auto) 7.2, Absolute Lymphs (auto) 1.09, Nucleated RBC % 0, Anisocytosis RARE, Sodium 136, Potassium 4.5, Chloride 103, Carbon Dioxide 20.0 L, Anion Gap 13, BUN 18, Creatinine 1.34 H, Estim Creat Clear Calc 35.43 L, Est GFR (MDRD) Non-Af39 L, BUN/Creatinine Ratio 13.5, Glucose 118 H,Calcium 8.9, Blood Type O POSITIVE, Antibody Screen NEGATIVE 04/04/25 06:14: POC Glucose 123 H Radiography Diagnostic Testing: Radiology Impression Chest X-Ray 04/03/25 14:09 IMPRESSION: Left thoracic transvenous pacemaker with atrial and ventricular leads, stable inposition. A prominently calcified aorta is noted. Mild cardiomegaly is seen. Increased interstitial markings are seen, concerning for (but not diagnostic of)mild interstitial pulmonary edema. No focal infiltrate is noted. No pleural effusion or pneumothorax is seen. No acute osseous change is seen. Reading [id number] Fem[facility] 04/03/25 14:09 IMPRESSION: Nondisplaced impacted fracture of the subcapital region of the proximal left femur. Soft tissue swelling. Reading Location: [place] [address] Pelvis X-Ray 04/03/25 14:09 IMPRESSION: Residual contrast material is seen within at least 2 sigmoid diverticula. Significant degenerative changes are seen of the visualized lower lumbar spine. Mild sacroiliac joint degenerative changes are noted. Deformity of the left femoral neck is seen, concerning for possible basicervicalmildly impacted fracture. Additional imaging of the left hip may be performed, at this time. Reading [facility]: [id number] Brain CT 04/03/25 15:00 IMPRESSION: CHRONIC CHANGES. NO ACUTE FINDINGS. Reading Location: [facility] 04/03/25 15:00 IMPRESSION: DEGENERATIVE CHANGES OF THE CERVICAL SPINE. NO EVIDENCE OF SIGNIFICANT OSSEOUS CENTRAL CANAL OR NEURAL FORAMINAL STENOSIS. Reading Location: [place] [address] Physical Exam Const alert and no apparent distress HEENT head/scalp atraumatic and moist oral mucous membranes Resp normal respiratory effort, no retractions, no use of accessory muscles and clearto auscultation bilaterally Cardio regular rate, regular rhythm, S1 normal heart sound and S2 normal heart sound GI normal to inspection, nondistended, normoactive bowel sounds, soft to palpation and non-tender Neuro Sensorium / Orientation: awake and alert Assessment & Plan Assessment/Plan (1) Closed left hip fracture: PLAN: Plan Left hip fracture * Imaging: Femur x-ray with nondisplaced impacted fracture of subcapital region of proximal left femur * Ortho consult * Pain control and scheduled bowel regimen: Will continue patient's home oxycodone 3 times daily asscheduled as reportedly she does take it regularly * Patient's last dose of Xarelto was the evening of 04/02, unsure when surgery will take place, willmake patient n.p.o. at midnight until this information is obtained to verify no delays * PT/OT * Case management and social work consults for DC planning Leukocytosis: * resolved. likley reactive/demargination given fxr. * no additional work up at this time. Chronic medical conditions: * HFrEF: compensated. Last echo 03/26/2024 with EF of 45 to 50% unable to assess diastolic dysfunction with apex akinetic * History of A-fib/flutter/sick sinus syndrome with pacemaker placement-Hold home Xarelto-Metoprolol with holding parameters * Type 2 diabetes mellitus-Glucose checks and sliding scale insulin-Hold home oral hypoglycemics * hypothyroidism-Continue Synthroid * Depression/anxiety-Continue home medications * Hypertension- Continue metoprolol with holding parameters, hold other home antihypertensives to allow for pain control and patient have surgery * Hx of CAD-w/ previous stenting- Holding Xarelto, continue statin, beta-rosaura as tolerated * GERD-Continue PPI DVT ppx: SCDs Charges/Coding Visit Charges Inpatient E&M: 84144 Subs Hosp L2 04/04/25 1028 Cosigner Signature (if applicable): CC: ~ Signed [facility]09-22-2025 History and physical note Author Ashli Bonner [facility] Note Date/Time April 03, 2025 5:35pm [facility] Medical Records Department [address] [place] [address] H&P Exam - Hospitalist 04/03/25 1713 MR#: [id number] Acct: [id number] Name: GUDELIA GUPTA Rep #:[id number] : 1940 84 From: Ashli Bonner MD PCP: Dr. Victor M Rocha MD Status:AD M IN Location: [facility] [place] [id number] HPI - General General Date of Admission: 04/03/25 Date of Service: 04/03/25 Chief Complaint: Left hip pain after fall HPI Narrative GUDELIA GUPTA, is a 84-year-old female history of A-fib/flutter, sick sinus syndrome with pacemaker placement, anxiety, hypertension, GERD, diabetes who presented [facility] ED 04/03/2025 for left hip pain. She slipped on hardwood floor and landed on her left hip and had immediate pain. Inthe ED temp 98, heart rate 78, blood pressure 96/83, respiratory rate 20 and pulse ox 96% on room air. White blood cell count 17.4, hemoglobin 11.8, BMP with a BUN of 18 and a creatinine of 1.34. INR 2.1. CT brain no acute changes. Cervical spine no acute process. Femur x-ray and x- ray pelvis with nondisplaced impacted fracture of subcapital region of proximal left femur with soft tissue swelling. Chest x-ray with some increased interstitial markings butno focal infiltrate. Given patient's hip fracture Ortho contacted who recommended hospital admission with Ortho consult. Hospitalist contacted for admission. Patient evaluated bedside. She reports walking up her stairs and that her foot caught and she fell on the hardwood floor on her left hip. Denieshurting anything else or hitting her head. Denies any significant new shortnessof breath or chest pain or cough. Gets some swelling in her lower extremities which is not necessarily new and she wears lower extremity stockings for this. Was noted to be hypoxic into the mid to high 80s while laying flat on room air and was placed on 2 L of nasal cannula. Does have history of heart failure, reports compliance with her Lasix. Denies any bowel or bladder concerns or changes [facility] Medical History Overweight (BMI 25.0-29.9) Coronary artery disease Iron deficiency anemia History of non-ST elevation myocardial infarction (NSTEMI) (2013) Longstanding persistent atrial fibrillation Essential (primary) hypertension Anxiety Hypothyroidism Hyperlipidemia Secondary pulmonary arterial hypertension Atherosclerosis of coronary artery of [place] heart without angina pectoris Paroxysmal atrial fibrillation Paroxysmal atrial flutter Sick sinus syndrome Home Medications ?Medication ?Instructions ?Recorded ?Last Taken ?Type buspirone 15 mg tablet 15 mg PO TID ANXIETY 3 04/03/25 History omeprazole 40 mg capsule,delayed 40 mg PO DAILY ACID R EFLUX 06/02/13 04/02/25 History release nitroglycerin 0.4 mg sublingual 0.4 mg sublingual Q5M PRN CHEST 04/21/15 Unknown History tablet PAIN amitriptyline 50 mg tablet 50 mg PO QHS DEPRESSION 03/0404/02/25 History empagliflozin 10 mg tablet 10 mg PO DAILY DIABETES 03/0404/03/25 History (Jardiance) ketotifen fumarate 0.025 % (0.035 1 drp ophthalmic (ey e) BID PRN 02/17/23 04/02/25 History %) eye drops (Alaway) ITCHING/ALLERGIES levothyroxine 100 mcg tablet 100 mcg PO DAILY THYROID 12/14/23 04/03/25 History (Synthroid) furosemide 40 mg tablet (Lasix) 40 mg PO DAILY water p ill #60 tabs 12/17/23 04/03/25 Rx rivaroxaban 20 mg tablet (Xarelto) 20 mg PO QPM #90 ta bs 10/06/24 04/02/25 Rx losartan 100 mg tablet 100 mg PO DAILY blood pressu re #90 11/18/24 04/03/25 Rx tabs potassium chloride 20 mEq 40 meq (2 x 20 mEq) PO QDAY #90 11/21/24 04/02/25 Rx tablet,extended release(part/cryst) tabs metoprolol succinate 50 mg 50 mg PO DAILY heart/BP #90 tabs 11/23/24 04/02/25 Rx tablet,extended release 24 hr simvastatin 20 mg tablet 20 mg PO QHS CHOLESTEROL #9 0 tabs 12/22/24 04/02/25 Rx amlodipine 10 mg tablet 10 mg PO DAILY 02/08/2503/14 History ferrous sulfate 325 mg (65 mg 65 mg PO DAILY 02/08/25 04/03/25 History iron) tablet (FeroSul) oxycodone-acetaminophen 5 mg-325 1 tab PO TID PRN PRN pain 02/08/25 04/03/25 History mg tablet ascorbic acid (vitamin C) 500 mg 500 mg PO BID 5 04/03/25 History tablet (Vitamin C) Allergy/AdvReac Type Severity Reaction Status Date / Time poison fany extract (Poison Allergy Rash Verified 04/03/25 13:18 Fany Extract) Sulfa (Sulfonamide Allergy Hives Verified 04/03/25 13:18 Antibiotics) Family History Mother Cancer Father Cancer Brother CAD (coronary artery disease) Sister CAD (coronary artery disease) Surgical History S/P kyphoplasty History of tubal ligation History of appendectomy History of hysterectomy History of left heart catheterization (10/09/13) History of coronary artery stent placement (09/2010) Hx of atrioventricular node ablation (03/31/16) Presence of cardiac pacemaker (04/26/15) Social History household members: spouse Smoking Status: Former smoker how long ago did patient quit smokin's alcohol intake: never substance use type: does not use caffeine: Yes Type: coffee Number of servings: 3 ROS ROS Narrative General: Denies fever/chills HENT: Denies headache, denies stuffy nose, denies sore throat EYES: Denies changes in vision Resp: Denies cough, denies any new shortness of breath Cardiac: Denies chest pain GI: Denies abdominal pain, denies changes in bowel, has felt intermittently little bit nauseous since her fall : Denies changes in urination Extremity: Bilateral lower extremity swelling for which she wears compression stockings and is not acute MSK: Denies weakness, left thigh pain feeling better to some extent after pain meds Neuro: Denies any numbness/tingling Heme: Denies any bleeding or bruising Skin: Denies rashes Psychiatric: No complaints voiced Vital Signs Vital Signs Vital Signs: 04/03/25 13:13 04/03/25 14:09 04/03/25 15:09 Temperature 98 F Temperature Source Oral Pulse Rate 78 Respiratory Rate 20 H Blood Pressure 96/83 H Blood Pressure Mean 87 Pulse Ox 96 81 Oxygen Delivery Method Room Air Room Air Room Air Oxygen Flow Rate (L/min) 04/03/25 15:13 04/03/25 16:30 04/03/25 16:54 Temperature 98 F Temperature Source Pulse Rate 83 83 Respiratory Rate 20 H 20 H Blood Pressure 96/83 H Blood Pressure Mean 87 Pulse Ox 93 93 92 Oxygen Delivery Method Nasal Cannula Nasal Cannula Oxygen Flow Rate (L/min) 2 5 Weight Weight: 92 kg Body Mass Index (BMI) 30.8 Physical Exam Narrative General: Alert, no apparent distress HEENT: normocephalic Eyes: Anicteric, normal conjunctiva, extraocular movements grossly intact Neck: Supple Respiratory: Very faint crackles at the bases without any wheezes or rhonchi normal respiratory effort Cardiovascular: Regular rate GI: Soft, nontender, nondistended Extremities: No edema Musculoskeletal: Moving all extremities though left extremity limited due to pain Neuro: No overt focal neurological deficits Skin: No rashes appreciated Psych: Cooperative Results Lab / Micro Data 04/03/25 14:35 04/03/25 14:35 Labs: Laboratory Results - last 24 hr 04/03/25 14:35: WBC 17.4 H, RBC 4.08 L, Hgb 11.8 L, Hct 37.3, MCV 91.4, MCH 28.9, MCHC 31.6 L, RDW Std Deviation 70.0 H, RDW Coeff of Jose Alberto 21.3 H, Plt Count 236, MPV 9.6, Immature Gran % (Auto) 0.800, Neut % (Auto) 86.5 H, Lymph % (Auto)4.3 L, [place] % (Auto) 8.1, Eos % (Auto) 0.1, Baso % (Auto) 0.2, Absolute Neuts (auto) 15.0 H, Absolute Lymphs (auto) 0.75 L, Nucleated RBC % 0, Anisocytosis 1+, PT 24.1 H, INR 2.1, APTT 40.9 H, Sodium 135, Potassium 4.4, Chloride 101, Carbon Dioxide 22.0, Anion Gap 12, BUN 18, Creatinine 1.34 H, Estim Creat Clear Calc 36.41 L, Est GFR (MDRD) Non-Af 39 L, BUN/Creatinine Ratio 13.5, Glucose 181H, Calcium 9.2, NT pro BNP II 1850 H Imaging Radiology Impression Chest X-Ray 04/03/25 14:09 IMPRESSION: Left thoracic transvenous pacemaker with atrial and ventricular leads, stable inposition. A prominently calcified aorta is noted. Mild cardiomegaly is seen. Increased interstitial markings are seen, concerning for (but not diagnostic of)mild interstitial pulmonary edema. No focal infiltrate is noted. No pleural effusion or pneumothorax is seen. No acute osseous change is seen. Reading [id number] Fem[facility] 04/03/25 14:09 IMPRESSION: Nondisplaced impacted fracture of the subcapital region of the proximal left femur. Soft tissue swelling. Reading Location: [facility] Pelvis X-Ray 04/03/25 14:09 IMPRESSION: Residual contrast material is seen within at least 2 sigmoid diverticula. Significant degenerative changes are seen of the visualized lower lumbar spine. Mild sacroiliac joint degenerative changes are noted. Deformity of the left femoral neck is seen, concerning for possible basicervicalmildly impacted fracture. Additional imaging of the left hip may be performed, at this time. Reading [id number] 04/03/25 15:00 IMPRESSION: CHRONIC CHANGES. NO ACUTE FINDINGS. Reading Location: [facility] 04/03/25 15:00 IMPRESSION: DEGENERATIVE CHANGES OF THE CERVICAL SPINE. NO EVIDENCE OF SIGNIFICANT OSSEOUS CENTRAL CANAL OR NEURAL FORAMINAL STENOSIS. Reading Location: [facility] Assessment & Plan Assessment/Plan (1) Closed left hip fracture: PLAN: Plan # Left hip fracture -Imaging: Femur x-ray with nondisplaced impacted fracture of subcapital region of proximal left femur -Ortho consult -Pain control and scheduled bowel regimen -Will continue patient's home oxycodone 3 times daily as scheduled as reportedlyshe does take it regularly -Patient's last dose of Xarelto was the evening of 04/02, unsure when surgery will take place, will make patient n.p.o. at midnight until this information is obtained to verify no delays -PT/OT -Case management and social work consults for DC planning #Hx chronic HF - Unclear subtype, daughter and patient report history of heart failure -Last echo 03/26/2024 with EF of 45 to 50% unable to assess diastolic dysfunctionwith apex akinetic -BNP 1800 but similar to what it was previous -Has chronic swelling in lower extremities and wears compression stockings -She is on 2 L nasal cannula, suspect patient's history of chronic heart failureand laying flat is causing suboptimal oxygenation however unable to sit up easily due to fracture -Will give dose of IV Lasix and monitor on pulse ox, given BNP similar to previous and no complaints of increased shortness of breath and her lower extremity swelling is chronic do not think she is in acute exacerbation -Will monitor daily weights and I's and O's # History of A-fib/flutter/sick sinus syndrome with pacemaker placement -Hold home Xarelto -Metoprolol with holding parameters #Type 2 diabetes mellitus -Glucose checks and sliding scale insulin -Hold home oral hypoglycemics # Elevated white blood cell count -No infectious signs or symptoms -Denies any urinary complaints -Afebrile -Repeat in a.m., can consider further workup if indicated moving forward #Hypothyroidism -Continue Synthroid #Depression/anxiety -Continue home medications #Hypertension - Continue metoprolol with holding parameters, hold other home antihypertensivesto allow for pain control and patient have surgery #Hx of CAD -w/ previous stenting - Holding Xarelto, continue statin, beta-rosaura as tolerated #GERD -Continue PPI #DVT ppx: SCDs Ashli Bonner MD Charges/Coding Visit Charges Inpatient E&M: 76150 Init Hosp L2 04/03/25 2701 <Electronically signed by Ashli Bonner MD> Cosigner Signature (if applicable): CC: Dr. Victor M Rocha MD; Dr. Ashli Bonner MD~ Signed [facility] Work Phone: 1(326) 186-307609-22-2025 Discharge summary Author Corwin Shearer [facility] Note Date/Time April 03, 2025 4:29pm [facility] Medical Records Department [address] [place] [address] Emergency Department Summary 04/03/25 MR#: [id number] Acct: [id number] Name: GUDELIA GUPTA Rep #:[id number] : 1940 84 From: Corwin Shearer DO PCP: Dr. Victor M Rocha MD Status:RE G ER Location: ED ADDENDUM by Dr. Corwin Shearer DO on 04/03/25 at 1629 EKG reviewed showed ventricular paced rhythm with a rate of 80 bpm no Sgarbossa criteria met. 04/03/25 1629<Electronically signed by Corwin Shearer DO> Cosigner Signature (if applicable): cc: Dr. Victor M Rocha MD ~* Signed HPI History of Present Illness Chief Complaint: Lower Extremity Injury Narrative Narrative: Patient is a 84-year-old female with past medical history of paroxysmal atrial fibrillation/flutter, sick sinus syndrome, hypothyroidism, anxiety, hypertensionwho presented to the emergency department the chief complaint of left hip pain. Patient states that she slipped on a hardwood floor landed on her left hip and had immediate pain. States that she cannot get out of she called EMS to have her brought here. Patient states that she did not hit her head did not pass outstates that she does not have any pain anywhere else. [facility] Medical History Overweight (BMI 25.0-29.9) Coronary artery disease Iron deficiency anemia History of non-ST elevation myocardial infarction (NSTEMI) (2013) Longstanding persistent atrial fibrillation Essential (primary) hypertension Anxiety Hypothyroidism Hyperlipidemia Secondary pulmonary arterial hypertension Atherosclerosis of coronary artery of [place] heart without angina pectoris Paroxysmal atrial fibrillation Paroxysmal atrial flutter Sick sinus syndrome Home Medications ?Medication ?Instructions ?Recorded ?Last Taken ?Type buspirone 15 mg tablet 15 mg PO BID ANXIETY 3 Unknown History omeprazole 40 mg capsule,delayed 40 mg PO DAILY ACID R EFLUX 06/02/13 04/11/24 History release nitroglycerin 0.4 mg sublingual 0.4 mg sublingual Q5M PRN CHEST 04/21/15 Unknown History tablet PAIN glimepiride 4 mg tablet 2 mg PO DAILY DIABETES 01/2404/08/24 History amitriptyline 50 mg tablet 50 mg PO QHS DEPRESSION 03/04 Unknown History empagliflozin 10 mg tablet 10 mg PO DAILY DIABETES 03/04 Unknown History (Jardiance) ketotifen fumarate 0.025 % (0.035 1 drp ophthalmic (ey e) BID PRN 02/17/23 Unknown History %) eye drops (Alaway) ITCHING/ALLERGIES levothyroxine 100 mcg tablet 100 mcg PO DAILY THYROID 12/14/23 Unknown History (Synthroid) furosemide 40 mg tablet (Lasix) 40 mg PO DAILY water p ill #60 tabs 12/17/23 Unknown Rx rivaroxaban 20 mg tablet (Xarelto) 20 mg PO QPM #90 ta bs 10/06/24 Unknown Rx losartan 100 mg tablet 100 mg PO DAILY blood pressu re #90 11/18/24 Unknown Rx tabs potassium chloride 20 mEq 40 meq (2 x 20 mEq) PO QDAY #90 11/21/24 Unknown Rx tablet,extended release(part/cryst) tabs metoprolol succinate 50 mg 50 mg PO DAILY heart/BP #90 tabs 11/23/24 Unknown Rx tablet,extended release 24 hr simvastatin 20 mg tablet 20 mg PO QHS CHOLESTEROL #9 0 tabs 12/22/24 Unknown Rx amlodipine 10 mg tablet 10 mg PO DAILY 02/08/25 Unkn own History ferrous sulfate 325 mg (65 mg 65 mg PO DAILY 02/08/25 Unknown History iron) tablet (FeroSul) oxycodone-acetaminophen 5 mg-325 1 tab PO TID PRN PRN pain 02/08/25 Unknown History mg tablet ascorbic acid (vitamin C) 500 mg 500 mg PO BID 5 Unknown History tablet (Vitamin C) Allergy/AdvReac Type Severity Reaction Status Date / Time poison fany extract (Poison Allergy Rash Verified 04/03/25 13:18 Fany Extract) Sulfa (Sulfonamide Allergy Hives Verified 04/03/25 13:18 Antibiotics) Family History Mother Cancer Father Cancer Brother CAD (coronary artery disease) Sister CAD (coronary artery disease) Surgical History S/P kyphoplasty History of tubal ligation History of appendectomy History of hysterectomy History of left heart catheterization (10/09/13) History of coronary artery stent placement (09/2010) Hx of atrioventricular node ablation (03/31/16) Presence of cardiac pacemaker (04/26/15) Social History household members: spouse Smoking Status: Former smoker how long ago did patient quit smokin's alcohol intake: never substance use type: does not use caffeine: Yes Type: coffee Number of servings: 3 ROS ROS ED ROS Narrative Constitutional: Denies any fevers, chills, headaches Cardiovascular: Denies chest pain Respiratory: No shortness of breath Abdomen: Denies abdominal pain nausea vomit diarrhea : Denies urinary symptoms Neurological: Denies any numbness, weakness, tingling Musculoskeletal: Denies back pain Skin: Denies any rashes or lesions EXAM Physical Exam Narrative Exam Narrative: General: Patient is lying in bed rest comfortably did not appear to be acute distress Head: Atraumatic, normocephalic Eyes: PERRL bilaterally, EOMI bilaterally, no conjunctival injection noted Neck: Soft, supple, trachea midline Cardiovascular: Regular rate and rhythm Respiratory: Clear to auscultation bilaterally no rales rhonchi or wheeze noted Abdomen: No tenderness to palpation Musculoskeletal: Patient has tenderness palpation over the left hip although bony prominence palpated joints taken through full range of motion no pain elicited, no tenderness palpation midline of the cervical spine, no tenderness palpation midline of the thoracic lumbar spine Extremities: +4/5 strength noted in the bilateral upper extremities in the rightlower extremity, pain limited the strength exam in the left lower extremity, DP pulses +2/4 in the left lower extremity Neurological: Patient follow commands that she was at [facility] the year is 2024 Skin: Warm, dry, intact no rashes or lesions noted Const Vital Signs: 04/03/25 13:13 04/03/25 14:09 04/03/25 15:13 Temperature 98 F Temperature Source Oral Pulse Rate 78 83 Respiratory Rate 20 H 20 H Blood Pressure 96/83 H Blood Pressure Mean 87 Pulse Ox 96 93 Oxygen Delivery Method Room Air Room Air Room Air MDM MDM MDM Narrative Medical decision making narrative: Patient is a 84-year-old female who presents to the emergency department after mechanical fall landing on her left hip complaining of pain. On the differential diagnose includes Melamin to femoral neck fracture, intertrochanteric hip fracture, subtrochanteric hip fracture. Once workup is obtained reviewed she will be reevaluated. Patient be given IV morphine and Zofran as well as fluids. Patient did become hypoxic here in the emergency department and daughter at bedside notes that she normally has issues with her oxygen level when she comes into the emergency department states that this runs on the low side Patient's CBC showed leukocytosis of 17,000 this is likely reactive as there is no identifiable source infection, hemoglobin stable 11.8, platelet count of 236. Sodium was 135, potassium was 4.4, creatinine was 1.34 patient has some underlying chronic kidney disease according to previous blood draws since patient was hypoxic here I did add a proBNP on given her chest x-ray or read. Patient CT head brain without contrast reviewed and showed chronic changes no acute findings. Patient CT cervical spine reviewed which showed degenerative changes cervical spine no evidence of significant osseous central canal or neural aminal foraminal stenosis. Patient's chest x-ray reviewed by myself by radiology and showed a left thoracic transverse pacemaker with atrial and ventricular leads stable positioning mild cardiomegaly. Increased interstitial markings seen concern for but not diagnostic of mild interstitial pulmonary edema no focal infiltrate noted. Patient's femur x-ray reviewed by myself by radiology showed a nondisplaced impacted fracture of the subcapital region of the proximal left femur soft tissue swelling noted. Patient's pelvis x-ray reviewed by myself by radiology which showed the left hip fracture as noted above with mild sacroiliac joint degenerative changes noted. Discussed case with on-call orthopedic surgeon Dr. Rodriguez who is on for [facility] who she states that she is seen in the past and that he notes that the patient could be admitted to medicine. Will discuss case with hospitalist for admission. Patient is on Xarelto Discussed case with hospitalist Dr. Bonner who accept patient for admission. Notified the patient and for members at bedside they are agreeable to plan all question concerns answered. Lab Data Labs: Laboratory Results - last 24 hr 04/03/25 14:35 WBC 17.4 H RBC 4.08 L Hgb 11.8 L Hct 37.3 MCV 91.4 MCH 28.9 MCHC 31.6 L RDW Std Deviation 70.0 H RDW Coeff of Jose Alberto 21.3 H Plt Count 236 MPV 9.6 Immature Gran % (Auto) 0.800 Neut % (Auto) 86.5 H Lymph % (Auto) 4.3 L [place] % (Auto) 8.1 Eos % (Auto) 0.1 Baso % (Auto) 0.2 Absolute Neuts (auto) 15.0 H Absolute Lymphs (auto) 0.75 L Nucleated RBC % 0 Anisocytosis 1+ PT 24.1 H INR 2.1 APTT 40.9 H Sodium 135 Potassium 4.4 Chloride 101 Carbon Dioxide 22.0 Anion Gap 12 BUN 18 Creatinine 1.34 H Estim Creat Clear Calc 36.41 L Est GFR (MDRD) Non-Af 39 L BUN/Creatinine Ratio 13.5 Glucose 181 H Calcium 9.2 Radiography Diagnostic Testing: Clinical Impression(s) from Imaging Studies Chest X-Ray 04/03/25 14:09 IMPRESSION: Left thoracic transvenous pacemaker with atrial and ventricular leads, stable inposition. A prominently calcified aorta is noted. Mild cardiomegaly is seen. Increased interstitial markings are seen, concerning for (but not diagnostic of)mild interstitial pulmonary edema. No focal infiltrate is noted. No pleural effusion or pneumothorax is seen. No acute osseous change is seen. [id number] 04/03/25 14:09 IMPRESSION: Nondisplaced impacted fracture of the subcapital region of the proximal left femur. Soft tissue swelling. Reading Location: [facility] Pelvis X-Ray 04/03/25 14:09 IMPRESSION: Residual contrast material is seen within at least 2 sigmoid diverticula. Significant degenerative changes are seen of the visualized lower lumbar spine. Mild sacroiliac joint degenerative changes are noted. Deformity of the left femoral neck is seen, concerning for possible basicervicalmildly impacted fracture. Additional imaging of the left hip may be performed, at this time. Reading Location: -[id number] Brain CT 04/03/25 15:00 IMPRESSION: CHRONIC CHANGES. NO ACUTE FINDINGS. Reading Location: [facility] 04/03/25 15:00 IMPRESSION: DEGENERATIVE CHANGES OF THE CERVICAL SPINE. NO EVIDENCE OF SIGNIFICANT OSSEOUS CENTRAL CANAL OR NEURAL FORAMINAL STENOSIS. Reading Location: [place] [address] Discharge Plan Dx/Rx/DC Orders Clinical Impression: History of coronary artery stent placement, Hyperlipidemia, Essential (primary)hypertension, Heart failure, Closed left hip fracture Disposition Disposition: Acute Care Hospital [facility] What to do if you have Problems For any increased pain, shortness of breath, bleeding, nausea or vomiting, chestpain, or any unexpected problems, contact your Primary Care Provider. Call [facility] ([phone]) or report to the closest Emergency Room. Call 911 if necessary. 04/03/25 1628 <Electronically signed by Corwin Shearer DO> Cosigner Signature (if applicable): CC: Dr. Victor M Rocha MD ~ Signed [facility] Work Phone: 1(694) 235-543509-22-2025 History and physical note [facility] Medical Records Department [address] [place] [address] H&P Exam - Hospitalist 04/03/25 1713 MR#: [id number] Acct: [id number] Name: GUDELIA GUPTA Rep #:[id number] : 1940 84 From: Ashli Bonner MD PCP: Dr. Victor M Rocha MD Status:AD M IN Location: [id number] HPI - General General Date of Admission: 04/03/25 Date of Service: 04/03/25 Chief Complaint: Left hip pain after fall HPI Narrative GUDELIA GUPTA, is a 84-year-old female history of A-fib/flutter, sick sinus syndrome with pacemakerplacement, anxiety, hypertension, GERD, diabetes who presented [facility] ED 04/03/2025 for left hip pain. She slipped on hardwood floor and landed on her left hip and had immediate pain. Inthe ED temp 98, heart rate 78, blood pressure 96/83, respiratory rate 20 and pulse ox 96% on room air. White blood cell count 17.4, hemoglobin 11.8, BMP with a BUN of 18 and a creatinine of 1.34. INR 2.1. CT brain no acute changes. Cervical spine no acute process. Femur x-ray and x-ray pelvis with nondisplaced impacted fracture of subcapital region of proximal left femur with soft tissue swelling. Chest x-ray with some increased interstitial markings butno focal infiltrate. Given patient'ship fracture Ortho contacted who recommended hospital admission with Ortho consult. Hospitalist contacted for admission. Patient evaluated bedside. She reports walking up her stairs and that her footcaught and she fell on the hardwood floor on her left hip. Denieshurting anything else or hitting he r head. Denies any significant new shortnessof breath or chest pain or cough. Gets some swelling inher lower extremities which is not necessarily new and she wears lower extremity stockings for this. Was noted to be hypoxic into the mid to high 80s while laying flat on room air and was placed on 2L of nasal cannula. Does have history of heart failure, reports compliance with her Lasix. Denies an y bowel or bladder concerns or changes [facility] Medical History Overweight (BMI 25.0-29.9) Coronary artery disease Iron deficiency anemia History of non-ST elevation myocardial infarction (NSTEMI) (2013) Longstanding persistent atrial fibrillation Essential (primary) hypertension Anxiety Hypothyroidism Hyperlipidemia Secondary pulmonary arterial hypertension Atherosclerosis of coronary artery of [place] heart without angina pectoris Paroxysmal atrial fibrillation Paroxysmal atrial flutter Sick sinus syndrome Home Medications ?Medication ?Instructions ?Recorded ?Last Taken ?Type buspirone 15 mg tablet 15 mg PO TID ANXIETY 3 04/03/25 History omeprazole 40 mg capsule,delayed 40 mg PO DAILY ACID R EFLUX 06/02/13 04/02/25 History release nitroglycerin 0.4 mg sublingual 0.4 mg sublingual Q5M PRN CHEST 04/21/15 Unknown History tablet PAIN amitriptyline 50 mg tablet 50 mg PO QHS DEPRESSION 03/0404/02/25 History empagliflozin 10 mg tablet 10 mg PO DAILY DIABETES 03/0404/03/25 History (Jardiance) ketotifen fumarate 0.025 % (0.035 1 drp ophthalmic (ey e) BID PRN 02/17/23 04/02/25 History %) eye drops (Alaway) ITCHING/ALLERGIES levothyroxine 100 mcg tablet 100 mcg PO DAILY THYROID 12/14/23 04/03/25 History (Synthroid) furosemide 40 mg tablet (Lasix) 40 mg PO DAILY water p ill #60 tabs 12/17/23 04/03/25 Rx rivaroxaban 20 mg tablet (Xarelto) 20 mg PO QPM #90 ta bs 10/06/24 04/02/25 Rx losartan 100 mg tablet 100 mg PO DAILY blood pressu re #90 11/18/24 04/03/25 Rx tabs potassium chloride 20 mEq 40 meq (2 x 20 mEq) PO QDAY #90 11/21/24 04/02/25 Rx tablet,extended release(part/cryst) tabs metoprolol succinate 50 mg 50 mg PO DAILY heart/BP #90 tabs 11/23/24 04/02/25 Rx tablet,extended release 24 hr simvastatin 20 mg tablet 20 mg PO QHS CHOLESTEROL #9 0 tabs 12/22/24 04/02/25 Rx amlodipine 10 mg tablet 10 mg PO DAILY 02/08/2503/14 History ferrous sulfate 325 mg (65 mg 65 mg PO DAILY 02/08/25 04/03/25 History iron) tablet (FeroSul) oxycodone-acetaminophen 5 mg-325 1 tab PO TID PRN PRN pain 02/08/25 04/03/25 History mg tablet ascorbic acid (vitamin C) 500 mg 500 mg PO BID 5 04/03/25 History tablet (Vitamin C) Allergy/AdvReac Type Severity Reaction Status Date / Time poison fany extract (Poison Allergy Rash Verified 04/03/25 13:18 Fany Extract) Sulfa (Sulfonamide Allergy Hives Verified 04/03/25 13:18 Antibiotics) Family History Mother Cancer Father Cancer Brother CAD (coronary artery disease) Sister CAD (coronary artery disease) Surgical History S/P kyphoplasty History of tubal ligation History of appendectomy History of hysterectomy History of left heart catheterization (10/09/13) History of coronary artery stent placement (09/2010) Hx of atrioventricular node ablation (03/31/16) Presence of cardiac pacemaker (04/26/15) Social History household members: spouse Smoking Status: Former smoker how long ago did patient quit smokin's alcohol intake: never substance use type: does not use caffeine: Yes Type: coffee Number of servings: 3 ROS ROS Narrative General: Denies fever/chills HENT: Denies headache, denies stuffy nose, denies sore throat EYES: Denies changes in vision Resp: Denies cough, denies any new shortness of breath Cardiac: Denies chest pain GI: Denies abdominal pain, denies changes in bowel, has felt intermittently little bit nauseous since her fall : Denies changes in urination Extremity: Bilateral lower extremity swelling for which she wears compression stockings and is not acute MSK: Denies weakness, left thigh pain feeling better to some extent after pain meds Neuro: Denies any numbness/tingling Heme: Denies any bleeding or bruising Skin: Denies rashes Psychiatric: No complaints voiced Vital Signs Vital Signs Vital Signs: 04/03/25 13:13 04/03/25 14:09 04/03/25 15:09 Temperature 98 F Temperature Source Oral Pulse Rate 78 Respiratory Rate 20 H Blood Pressure 96/83 H Blood Pressure Mean 87 Pulse Ox 96 81 Oxygen Delivery Method Room Air Room Air Room Air Oxygen Flow Rate (L/min) 04/03/25 15:13 04/03/25 16:30 04/03/25 16:54 Temperature 98 F Temperature Source Pulse Rate 83 83 Respiratory Rate 20 H 20 H Blood Pressure 96/83 H Blood Pressure Mean 87 Pulse Ox 93 93 92 Oxygen Delivery Method Nasal Cannula Nasal Cannula Oxygen Flow Rate (L/min) 2 5 Weight Weight: 92 kg Body Mass Index (BMI) 30.8 Physical Exam Narrative General: Alert, no apparent distress HEENT: normocephalic Eyes: Anicteric, normal conjunctiva, extraocular movements grossly intact Neck: Supple Respiratory: Very faint crackles at the bases without any wheezes or rhonchi normal respiratory effort Cardiovascular: Regular rate GI: Soft, nontender, nondistended Extremities: No edema Musculoskeletal: Moving all extremities though left extremity limited due to pain Neuro: No overt focal neurological deficits Skin: No rashes appreciated Psych: Cooperative Results Lab / Micro Data 04/03/25 14:35 04/03/25 14:35 Labs: Laboratory Results - last 24 hr 04/03/25 14:35: WBC 17.4 H, RBC 4.08 L, Hgb 11.8 L, Hct 37.3, MCV 91.4, MCH 28.9, MCHC 31.6 L, RDW Std Deviation 70.0 H, RDW Coeff of Jose Alberto 21.3 H, Plt Count 236, MPV 9.6, Immature Gran % (Auto) 0.800,Neut % (Auto) 86.5 H, Lymph % (Auto)4.3 L, [place] % (Auto) 8.1, Eos % (Auto) 0.1, Baso % (Auto) 0.2, Absolute Neuts (auto) 15.0 H, Absolute Lymphs (auto) 0.75 L, Nucleated RBC % 0, Anisocytosis 1+, PT 24.1 H, INR 2.1, APTT 40.9 H, Sodium 135, Potassium 4.4, Chloride 101, Carbon Dioxide 22.0, Anion Gap 12, BUN 18, Creatinine 1.34 H, Estim Creat Clear Calc 36.41 L, Est GFR (MDRD) Non-Af 39 L, BUN/Creatinine Ratio 13.5, Glucose 181H, Calcium 9.2, NT pro BNP II 1850 H Imaging Radiology Impression Chest X-Ray 04/03/25 14:09 IMPRESSION: Left thoracic transvenous pacemaker with atrial and ventricular leads, stable inposition. A prominently calcified aorta is noted. Mild cardiomegaly is seen. Increased interstitial markings are seen, concerning for (but not diagnostic of)mild interstitial pulmonary edema. No focal infiltrate is noted. No pleural effusion or pneumothorax is seen. No acute osseous change is seen. Reading [id number] 04/03/25 14:09 IMPRESSION: Nondisplaced impacted fracture of the subcapital region of the proximal left femur. Soft tissue swelling. Reading Location: [facility] Pelvis X-Ray 04/03/25 14:09 IMPRESSION: Residual contrast material is seen within at least 2 sigmoid diverticula. Significant degenerative changes are seen of the visualized lower lumbar spine. Mild sacroiliac joint degenerative changes are noted. Deformity of the left femoral neck is seen, concerning for possible basicervicalmildly impacted fracture. Additional imaging of the left hip may be performed, at this time. Reading [id number] 04/03/25 15:00 IMPRESSION: CHRONIC CHANGES. NO ACUTE FINDINGS. Reading Location: [facility] 04/03/25 15:00 IMPRESSION: DEGENERATIVE CHANGES OF THE CERVICAL SPINE. NO EVIDENCE OF SIGNIFICANT OSSEOUS CENTRAL CANAL OR NEURAL FORAMINAL STENOSIS. Reading Location: [facility] Assessment & Plan Assessment/Plan (1) Closed left hip fracture: PLAN: Plan # Left hip fracture -Imaging: Femur x-ray with nondisplaced impacted fracture of subcapital region of proximal left femur -Ortho consult -Pain control and scheduled bowel regimen -Will continue patient's home oxycodone 3 times daily as scheduled as reportedlyshe does take it regularly -Patient's last dose of Xarelto was the evening of 04/02, unsure when surgery will take place, will make patient n.p.o. at midnight until this information is obtained to verify no delays -PT/OT -Case management and social work consults for DC planning #Hx chronic HF - Unclear subtype, daughter and patient report history of heart failure -Last echo 03/26/2024 with EF of 45 to 50% unable to assess diastolic dysfunctionwith apex akinetic -BNP 1800 but similar to what it was previous -Has chronic swelling in lower extremities and wears compression stockings -She is on 2 L nasal cannula, suspect patient's history of chronic heart failureand laying flat is causing suboptimal oxygenation however unable to sit up easily due to fracture -Will give dose of IV Lasix and monitor on pulse ox, given BNP similar to previous and no complaints of increased shortness of breath and her lower extremity swelling is chronic do not think she is in acute exacerbation -Will monitor daily weights and I's and O's # History of A-fib/flutter/sick sinus syndrome with pacemaker placement -Hold home Xarelto -Metoprolol with holding parameters #Type 2 diabetes mellitus -Glucose checks and sliding scale insulin -Hold home oral hypoglycemics # Elevated white blood cell count -No infectious signs or symptoms -Denies any urinary complaints -Afebrile -Repeat in a.m., can consider further workup if indicated moving forward #Hypothyroidism -Continue Synthroid #Depression/anxiety -Continue home medications #Hypertension - Continue metoprolol with holding parameters, hold other home antihypertensivesto allow for pain control and patient have surgery #Hx of CAD -w/ previous stenting - Holding Xarelto, continue statin, beta-rosaura as tolerated #GERD -Continue PPI #DVT ppx: SCDs Ashli Bonner MD Charges/Coding Visit Charges Inpatient E&M: 84962 Init Hosp L2 04/03/25 1735 Cosigner Signature (if applicable): CC: Dr. Victor M Rocha MD; Dr. Ashli Bonner MD~ Signed [facility]09-22-2025 Discharge summary [facility] Medical Records Department [address] [place] [address] Emergency Department Summary 04/03/25 MR#: [id number] Acct: [id number] Name: GUDELIA GUPTA Rep #:[id number] : 1940 84 From: Corwin Shearer DO PCP: Dr. Victor M Rocha MD Status:RE G ER Location: ED ADDENDUM by Dr. Corwin Shearer DO on 04/03/25 at 1629 EKG reviewed showed ventricular paced rhythm with a rate of 80 bpm no Sgarbossa criteria met. 04/03/25 1629 Cosigner Signature (if applicable): cc: Dr. Victor M Rocha MD ~* Signed HPI History of Present Illness Chief Complaint: Lower Extremity Injury Narrative Narrative: Patient is a 84-year-old female with past medical history of paroxysmal atrial fibrillation/flutter, sick sinus syndrome, hypothyroidism, anxiety, hypertensionwho presented to the emergency department the chief complaint of left hip pain. Patient states that she slipped on a hardwood floor landed on her left hip and had immediate pain. States that she cannot get out of she called EMS to have her brought here. Patient states that she did not hit her head did not pass outstates that she does not have any pain anywhere else. [facility] Medical History Overweight (BMI 25.0-29.9) Coronary artery disease Iron deficiency anemia History of non-ST elevation myocardial infarction (NSTEMI) (2013) Longstanding persistent atrial fibrillation Essential (primary) hypertension Anxiety Hypothyroidism Hyperlipidemia Secondary pulmonary arterial hypertension Atherosclerosis of coronary artery of [place] heart without angina pectoris Paroxysmal atrial fibrillation Paroxysmal atrial flutter Sick sinus syndrome Home Medications ?Medication ?Instructions ?Recorded ?Last Taken ?Type buspirone 15 mg tablet 15 mg PO BID ANXIETY 3 Unknown History omeprazole 40 mg capsule,delayed 40 mg PO DAILY ACID R EFLUX 06/02/13 04/11/24 History release nitroglycerin 0.4 mg sublingual 0.4 mg sublingual Q5M PRN CHEST 04/21/15 Unknown History tablet PAIN glimepiride 4 mg tablet 2 mg PO DAILY DIABETES 01/2404/08/24 History amitriptyline 50 mg tablet 50 mg PO QHS DEPRESSION 03/04 Unknown History empagliflozin 10 mg tablet 10 mg PO DAILY DIABETES 03/04 Unknown History (Jardiance) ketotifen fumarate 0.025 % (0.035 1 drp ophthalmic (ey e) BID PRN 02/17/23 Unknown History %) eye drops (Alaway) ITCHING/ALLERGIES levothyroxine 100 mcg tablet 100 mcg PO DAILY THYROID 12/14/23 Unknown History (Synthroid) furosemide 40 mg tablet (Lasix) 40 mg PO DAILY water p ill #60 tabs 12/17/23 Unknown Rx rivaroxaban 20 mg tablet (Xarelto) 20 mg PO QPM #90 ta bs 10/06/24 Unknown Rx losartan 100 mg tablet 100 mg PO DAILY blood pressu re #90 11/18/24 Unknown Rx tabs potassium chloride 20 mEq 40 meq (2 x 20 mEq) PO QDAY #90 11/21/24 Unknown Rx tablet,extended release(part/cryst) tabs metoprolol succinate 50 mg 50 mg PO DAILY heart/BP #90 tabs 11/23/24 Unknown Rx tablet,extended release 24 hr simvastatin 20 mg tablet 20 mg PO QHS CHOLESTEROL #9 0 tabs 12/22/24 Unknown Rx amlodipine 10 mg tablet 10 mg PO DAILY 02/08/25 Unkn own History ferrous sulfate 325 mg (65 mg 65 mg PO DAILY 02/08/25 Unknown History iron) tablet (FeroSul) oxycodone-acetaminophen 5 mg-325 1 tab PO TID PRN PRN pain 02/08/25 Unknown History mg tablet ascorbic acid (vitamin C) 500 mg 500 mg PO BID 5 Unknown History tablet (Vitamin C) Allergy/AdvReac Type Severity Reaction Status Date / Time poison fany extract (Poison Allergy Rash Verified 04/03/25 13:18 Fany Extract) Sulfa (Sulfonamide Allergy Hives Verified 04/03/25 13:18 Antibiotics) Family History Mother Cancer Father Cancer Brother CAD (coronary artery disease) Sister CAD (coronary artery disease) Surgical History S/P kyphoplasty History of tubal ligation History of appendectomy History of hysterectomy History of left heart catheterization (10/09/13) History of coronary artery stent placement (09/2010) Hx of atrioventricular node ablation (03/31/16) Presence of cardiac pacemaker (04/26/15) Social History household members: spouse Smoking Status: Former smoker how long ago did patient quit smokin's alcohol intake: never substance use type: does not use caffeine: Yes Type: coffee Number of servings: 3 ROS ROS ED ROS Narrative Constitutional: Denies any fevers, chills, headaches Cardiovascular: Denies chest pain Respiratory: No shortness of breath Abdomen: Denies abdominal pain nausea vomit diarrhea : Denies urinary symptoms Neurological: Denies any numbness, weakness, tingling Musculoskeletal: Denies back pain Skin: Denies any rashes or lesions EXAM Physical Exam Narrative Exam Narrative: General: Patient is lying in bed rest comfortably did not appear to be acute distress Head: Atraumatic, normocephalic Eyes: PERRL bilaterally, EOMI bilaterally, no conjunctival injection noted Neck: Soft, supple, trachea midline Cardiovascular: Regular rate and rhythm Respiratory: Clear to auscultation bilaterally no rales rhonchi or wheeze noted Abdomen: No tenderness to palpation Musculoskeletal: Patient has tenderness palpation over the left hip although bony prominence palpated joints taken through full range of motion no pain elicited, no tenderness palpation midline of the cervical spine, no tenderness palpation midline of the thoracic lumbar spine Extremities: +4/5 strength noted in the bilateral upper extremities in the rightlower extremity, pain limited the strength exam in the left lower extremity, DP pulses +2/4 in the left lower extremity Neurological: Patient follow commands that she was at [facility] the year is 2024 Skin: Warm, dry, intact no rashes or lesions noted Const Vital Signs: 04/03/25 13:13 04/03/25 14:09 04/03/25 15:13 Temperature 98 F Temperature Source Oral Pulse Rate 78 83 Respiratory Rate 20 H 20 H Blood Pressure 96/83 H Blood Pressure Mean 87 Pulse Ox 96 93 Oxygen Delivery Method Room Air Room Air Room Air MDM MDM MDM Narrative Medical decision making narrative: Patient is a 84-year-old female who presents to the emergency department after mechanical fall landing on her left hip complaining of pain. On the differential diagnose includes Melamin to femoral neck fracture, intertrochanteric hip fracture, subtrochanteric hip fracture. Once workup is obtained reviewed she will be reevaluated. Patient be given IV morphine and Zofran as well as fluids. Patient did become hypoxic here in the emergency department and daughter at bedside notes that she normally has issues with her oxygen level when she comes into the emergency department states that this runs on the low side Patient's CBC showed leukocytosis of 17,000 this is likely reactive as there is no identifiable source infection, hemoglobin stable 11.8, platelet count of 236. Sodium was 135, potassium was 4.4, creatinine was 1.34 patient has some underlying chronic kidney disease according to previous blood draws since patient was hypoxic here I did add a proBNP on given her chest x-ray or read. Patient CT head brain without contrast reviewed and showed chronic changes no acute findings. Patient CT cervical spine reviewed which showed degenerative changes cervical spine no evidence of significant osseous central canal or neural aminal foraminal stenosis. Patient's chest x-ray reviewed by myself by radiology and showed a left thoracic transverse pacemaker with atrial and ventricular leadsstable positioning mild cardiomegaly. Increased interstitial markings seen concern for but not diagnostic of mild interstitial pulmonary edema no focal infiltrate noted. Patient's femur x-ray reviewed by myself by radiology showed a nondisplaced impacted fracture of the subcapital region of the proximal left femur soft tissue swelling noted. Patient's pelvis x-ray reviewed by myself by radiology which showed the left hip fracture as noted above with mild sacroiliac joint degenerative changes noted. Discussed case with on-call orthopedic surgeon Dr. Rodriguez who is on for [facility] who shestates that she is seen in the past and that he notes that the patient could be admitted to medicine. Will discuss case with hospitalist for admission. Patient is on Xarelto Discussed case with hospitalist Dr. Bonner who accept patient for admission. Notified the patient and for members at bedside they are agreeable to plan all question concerns answered. Lab Data Labs: Laboratory Results - last 24 hr 04/03/25 14:35 WBC 17.4 H RBC 4.08 L Hgb 11.8 L Hct 37.3 MCV 91.4 MCH 28.9 MCHC 31.6 L RDW Std Deviation 70.0 H RDW Coeff of Jose Alberto 21.3 H Plt Count 236 MPV 9.6 Immature Gran % (Auto) 0.800 Neut % (Auto) 86.5 H Lymph % (Auto) 4.3 L [place] % (Auto) 8.1 Eos % (Auto) 0.1 Baso % (Auto) 0.2 Absolute Neuts (auto) 15.0 H Absolute Lymphs (auto) 0.75 L Nucleated RBC % 0 Anisocytosis 1+ PT 24.1 H INR 2.1 APTT 40.9 H Sodium 135 Potassium 4.4 Chloride 101 Carbon Dioxide 22.0 Anion Gap 12 BUN 18 Creatinine 1.34 H Estim Creat Clear Calc 36.41 L Est GFR (MDRD) Non-Af 39 L BUN/Creatinine Ratio 13.5 Glucose 181 H Calcium 9.2 Radiography Diagnostic Testing: Clinical Impression(s) from Imaging Studies Chest X-Ray 04/03/25 14:09 IMPRESSION: Left thoracic transvenous pacemaker with atrial and ventricular leads, stable inposition. A prominently calcified aorta is noted. Mild cardiomegaly is seen. Increased interstitial markings are seen, concerning for (but not diagnostic of)mild interstitial pulmonary edema. No focal infiltrate is noted. No pleural effusion or pneumothorax is seen. No acute osseous change is seen. Reading [id number] Fem[facility] X-Ray 04/03/25 14:09 IMPRESSION: Nondisplaced impacted fracture of the subcapital region of the proximal left femur. Soft tissue swelling. Reading Location: [facility] Pelvis X-Ray 04/03/25 14:09 IMPRESSION: Residual contrast material is seen within at least 2 sigmoid diverticula. Significant degenerative changes are seen of the visualized lower lumbar spine. Mild sacroiliac joint degenerative changes are noted. Deformity of the left femoral neck is seen, concerning for possible basicervicalmildly impacted fracture. Additional imaging of the left hip may be performed, at this time. Reading [id number] 04/03/25 15:00 IMPRESSION: CHRONIC CHANGES. NO ACUTE FINDINGS. Reading Location: [facility] 04/03/25 15:00 IMPRESSION: DEGENERATIVE CHANGES OF THE CERVICAL SPINE. NO EVIDENCE OF SIGNIFICANT OSSEOUS CENTRAL CANAL OR NEURAL FORAMINAL STENOSIS. Reading Location: [facility] Discharge Plan Dx/Rx/DC Orders Clinical Impression: History of coronary artery stent placement, Hyperlipidemia, Essential (primary)hypertension, Heart failure, Closed left hip fracture Disposition Disposition: Acute Care Hospital [facility] What to do if you have Problems For any increased pain, shortness of breath, bleeding, nausea or vomiting, chestpain, or any unexpected problems, contact your Primary Care Provider. Call [facility] ([phone]) or report tothe closest Emergency Room. Call 911 if necessary. 04/03/25 1621 Cosigner Signature (if applicable): CC: Dr. Victor M Rocha MD ~ Signed [facility]09-22-2025 Radiology Diagnostic study note [facility] Imaging Services [address] [place] [address] Pelvis 1 or 2 Views MR#: [id number] Acct: [id number] Name: GUDELIA GUPTA Rep #: [id number] : 1940 F From: Goran Smith MD PCP: Dr. Victor M Rocha MD Status: RE G ER Study:Pelvis 1 or 2 Views Date of Exam: 04/03/25 Exam# [id number] Ordering Dr: Casandra Shearer DO PROCEDURE: PELVIS 1 OR 2 VIEWS 04/03/2025 REASON FOR EXAM: FALL TECHNIQUE: Procedure Code: RADPEL Modality: DX Procedure: PELVIS 2 VIEWS COMPARISON: None. RAD/Pelvis 1 or 2 Views IMPRESSION: Residual contrast material is seen within at least 2 sigmoid diverticula. Significant degenerative changes are seen of the visualized lower lumbar spine. Mild sacroiliac joint degenerative changes are noted. Deformity of the left femoral neck is seen, concerning for possible basicervicalmildly impacted fracture. Additional imaging of the left hip may be performed, at this time. Reading Location: [place] [address] CC: Dr. Victor M Rocha MD; Dr. Corwin Shearer DO ~ Job Checker: Signed [facility]09-22-2025 Radiology Diagnostic study note [facility] Imaging Services [address] [place], [place] [id number] Chest 1 View (Portable) MR#: [id number] Acct: [id number] Name: GUDELIA GUPTA Rep #: [id number] : 1940 F 84 From: Goran Smith MD PCP: Dr. Victor M Rocha MD Status: RE G ER Study:Chest 1 View (Portable) Date of Exam: 04/03/25 Exam# [id number] Ordering Dr: Casandra Shearer DO PROCEDURE: CHEST 1 VIEW (PORTABLE) 04/03/2025 REASON FOR EXAM: CHEST PAIN TECHNIQUE: Single-view AP portable supine chest. COMPARISON: Chest x-ray of 02/08/2025. RAD/Chest 1 View (Portable) IMPRESSION: Left thoracic transvenous pacemaker with atrial and ventricular leads, stable inposition. A prominently calcified aorta is noted. Mild cardiomegaly is seen. Increased interstitial markings are seen, concerning for (but not diagnostic of)mild interstitial pulmonary edema. No focal infiltrate is noted. No pleural effusion or pneumothorax is seen. No acute osseous change is seen. Reading [id number] CC: Dr. Victor M Rocha MD; Dr. Corwin Shearer DO ~ Job Checker: Signed [facility]09-22-2025 Radiology Diagnostic study note [facility] Imaging Services [address] [place] [address] [id number] Femur Min 2 Views MR#: [id number] Acct: [id number] Name: GUDELIA GUPTA Rep #: [id number] : 1940 F 84 From: Zacarias Lozoya MD PCP: Dr. Victor M Rocha MD Status: RE G ER Study:Femur Min 2 Views Date of Exam: Exam# [id number] Ordering Dr: Casandra Shearer DO PROCEDURE: FEMUR MIN 2 VIEWS 04/03/2025 REASON FOR EXAM: FALL TECHNIQUE: Procedure Code: RADFEM Modality: DX Procedure: FEMUR MIN 2 VIEWS Laterality: Left femur COMPARISON: None FINDINGS: Bones: Nondisplaced impacted fracture of the subcapital region of the proximal left femur. Joints: Degenerative changes Soft tissues: Soft tissue swelling. Other: RAD/Femur Min 2 Views IMPRESSION: Nondisplaced impacted fracture of the subcapital region of the proximal left femur. Soft tissue swelling. Reading Location: [place] [address] CC: Dr. Victor M Rocha MD; Dr. Corwin Shearer DO ~ Job Checker: Signed [facility]09-22-2025 Radiology Diagnostic study note [facility] Imaging Services [address] [place], [place] [id number] Spine Cervical without Contras MR#: [id number] Acct: [id number] Name: GUDELIA GUPTA Rep #: [id number] : 1940 F 84 From: Zacarias Lozoya MD PCP: Dr. Victor M Rocha MD Status: RE G ER Study:Spine Cervical without Contras Date of Exam: 04/03/25 Exam# [id number] Ordering Dr: Casandra Shearer DO PROCEDURE: SPINE CERVICAL WITHOUT CONTRAS 04/03/2025 REASON FOR EXAM: FALL TECHNIQUE: Procedure Code: CTSPC Modality: CT Procedure: SPINE CERVICAL WITHOUT CONTRAS Coronal and Sagittal reconstruction series were provided. One or more dose reduction techniques were used (e.g., Automated exposure control, adjustment of the mA and/or kV according to patient size, use of iterative reconstruction technique. RADIATION DOSE SUMMARY: CTDlvol: 20.67 mGy DLP: 442.07 mGycm COMPARISON: None FINDINGS: Alignment: Straightening of the normal cervical lordosis. Vertebrae: Spondylosis. No vertebral fracture. Soft Tissues: No prevertebral soft tissue swelling. Other: C1-2: Degenerative changes at the atlantoaxial joint. C2-3: Mild degree of disc space narrowing. No evidence of fracture. Facet joint osteoarthritis. C3-4: Minimal degree of anterior listhesis of C3 on C4 due to facet joint osteoarthritis and hypertrophy. No significant stenosis is seen. C4-5: Moderate degree of disc space narrowing. Anterior spondylosis. Facet joint osteoarthritis andhypertrophy. Mild degree of bilateral neural foraminal stenosis. C5-6: Marked degree of disc space narrowing. Spondylosis. No evidence of stenosis. C6-7: Moderate degree of disc space narrowing. No evidence of stenosis. C7-T1: CT/Spine Cervical without Contras IMPRESSION: DEGENERATIVE CHANGES OF THE CERVICAL SPINE. NO EVIDENCE OF SIGNIFICANT OSSEOUS CENTRAL CANAL OR NEURAL FORAMINAL STENOSIS. Reading Location: [place] [address] CC: Dr. Victor M Rocha MD; Dr. Corwin Shearer DO ~ Job Checker: Signed [facility]09-22-2025 Radiology Diagnostic study note [facility] Imaging Services [address] [place] [address] Brain/Head without Contrast MR#: [id number] Acct: [id number] Name: GUDELIA GUPTA Rep #: [id number] : 1940 F 84 From: Zacarias Lozoya MD PCP: Dr. Victor M Rocha MD Status: RE G ER Study:Brain/Head without Contrast Date of Exa m: 04/03/25 Exam# [id number] Ordering Dr: Casandra Shearer DO PROCEDURE: BRAIN/HEAD WITHOUT CONTRAST 04/03/2025 REASON FOR EXAM: FALL TECHNIQUE: Procedure Code: CTBR Modality: CT Procedure: BRAIN/HEAD WITHOUT CONTRAST Coronal and Sagittal reconstruction series were provided. One or more dose reduction techniques were used (e.g., Automated exposure control, adjustment of the mA and/or kV according to patient size, use of iterative reconstruction technique. RADIATION DOSE SUMMARY: CTDlvol: 47.06 mGy DLP: 907.97 mGycm COMPARISON: Prior study dated December 27, 2018. FINDINGS: Brain: Low density in the periventricular white matter suggests mild chronic small vessel ischemic changes. CSF Spaces: Moderate generalized cerebral atrophy atherosclerotic calcification of the vertebral arteries and cavernous portions of the internal carotid arteries bilaterally. Sinuses/Mastoids: Mucosal thickening of the right maxillary sinus. Bones: No skull fracture is seen. CT/Brain/Head without Contrast IMPRESSION: CHRONIC CHANGES. NO ACUTE FINDINGS. Reading Location: [place] [address] CC: Dr. Victor M Rocha MD; Dr. Corwin Shearer DO ~ Job Checker: Signed [facility]08-26-2025 History of Present illness Narrative* Victor M Rocha MD - 03/07/2025 2:20 PM EDT Chief Complaint Patient presents with: Recheck: 4 week f/u weakness HPI Gudelia Gupta is a 84 year old female who presents here today for follow up. Recording using [employer] software for draft documentation of the visit was discussed with the patient/authorized retail sales representative; all questions welcomed and answered. Patient/authorized retail sales representative agreed to proceed Gudelia Gupta is an 84-year-old female with a history of CHF, DM, and chronic anemia, presenting for follow-up after a recent hospitalization for CHF exacerbation. Gudelia was recently hospitalized earlier this month for a CHF exacerbation, which she attributes to excessive sodium intake. She reportsnot adhering to her low-sodium diet, leading to fluid retention. She was advised to go to the emergency room by her physician's office, where she was promptly admitted and treated. Since discharge, she has been monitoring her weight daily and is aware of the guidelines to seek medical attention if she gains more than 3 pounds in one day or 5 pounds in two days. She is attempting to adhere to a low-sodium diet but finds it challenging. Gudelia has a history of chronic anemia, which she believes may be related to a childhood exposure tohookworms. She is currently taking ferrous sulfate and vitamin C supplements to manage her anemia. She also wears compression stockings daily to manage lower extremity edema, which she notes is effective in reducing swelling. Gudelia is on glimepiride 2 mg daily for DM management. She reports a recent episode of hypoglycemia,which she attributes to prolonged periods of sewing without eating. She managed the episode by consuming canned pears and their juice, which alleviated her symptoms. She is also taking Jardiance and expresses concerns about her renal function, although she is compliant with her medication regimen. She remains active in her daily activities, including housework and cooking, with significant assistance from her . She enjoys sewing and has been making quilts for children in foster care, although she notes that prolonged periods of sewing can lead to fatigue. 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 Past medical history, appointments, medications, allergies reviewed. Previous Medical History PAST MEDICAL HISTORY Diagnosis Date Coronary atherosclerosis of unspecified type of vessel, [place] or graft Stent x 2010 Depressive disorder, [...] on File Prior to Visit Medication Sig furosemide (LASIX) 40 mg tablet Take 1 tablet by mouth once daily. ferrous sulfate 325 mg (65 mg iron) tablet Take 1 tablet by mouth two times a day with meals. ascorbic acid, vitamin C, (VITAMIN C) 500 mg tablet Take 1 tablet by mouth two times a day. empagliflozin (JARDIANCE) 10 mg tablet Take 1 tablet by mouth once daily. Take 1 tablet once daily in the morning levothyroxine (SYNTHROID) 100 mcg tablet Take 1 tablet by mouth once daily. amitriptyline (ELAVIL) 50 mg tablet Take 1 tablet by mouth daily at bedtime. glimepiride (AMARYL) 4 mg tablet Take 0.5 tablets by mouth daily with breakfast. busPIRone (BUSPAR) 15 mg tablet Take 1 tablet by mouth three times a day. losartan (COZAAR) 100 mg tablet Take 100 mg by mouth once daily. potassium chloride ER (KLOR-CON) 20 mEq tablet Take two tablets by mouth once daily. omeprazole (PRILOSEC) 40 mg capsule Take 1 capsule by mouth once daily. oxyCODONE-acetaminophen (PERCOCET) 5-325 mg tablet TAKE 1 TO 2 TABLETS BY MOUTH EVERY 6 HOURS FOR PAIN metoprolol succinate ER (TOPROL XL) 50 mg 24 hr tablet Take 50 mg by mouth once daily. nitroglycerin sublingual (NITROSTAT) 0.4 mg SL tablet Dissolve 1 tablet under the tongue every 5 minutes as needed for chest pain. ketotifen fumarate (ALAWAY) 0.025 % (0.035 %) ophthalmic solution Use 1 Drop in both eyes twice daily. blood sugar diagnostic (ProFibrixUCH VERIO TEST STRIPS) test strip TEST BLOOD [...] 20 mg by mouth daily at bedtime. No current facility-administered medications on file prior to visit. Social History SOCIAL HISTORY[1] EXAM: BP 112/74 Pulse 66 Resp 16 Wt 86.9 kg (191 lb 9.3 oz) BMI 29.13 kg/m General Appearance: Well appearing, alert, in no acute distress, well-hydrated, well nourished.. Lungs: Lungs clear to auscultation. No wheezing, rhonchi, rales.. Heart: RRR without murmur, gallop, or rubs. No ectopy. Health Maintenance List Anxiety Screening Never done Shingrix Vaccine(1 of 2) Never done Bone Density Screening due on 10/30/2010 RSV Vaccine(1 - 1-dose 75+ series) Never done DTaP,Tdap,Td Vaccine(2 - Td or Tdap) due on 10/04/2018 Diabetic Foot Exam due on 09/17/2021 Urine Albumin:Creatinine Ratio due on 10/22/2024 Influenza Vaccine(1) due on 03/13/2025 HbA1C due on 08/09/2025 Medicare Annual Wellness Visit due on 08/12/2025 Dilated Retinal Exam due on 08/18/2025 LDL Cholesterol due on 02/06/2026 Advance Directive Discussion Completed Pneumococcal Vaccine: 50+ Completed Data reviewed none 1. Type 2 diabetes mellitus with other diabetic kidney complication, without long-term current use of insulin (HCC) (E11.29) Recent episode of hypoglycemia likely related to glimepiride use; last A1c was well controlled. - Discontinue glimepiride for 3 months. - Follow-up labs in 3 months to reassess glycemic control. 2. Generalized weakness (R53.1) Likely multifactorial, with contributions from chronic conditions and recent hypoglycemic episode. - Monitor for improvement following discontinuation of glimepiride. 3. Stage 3b chronic kidney disease (HCC) (N18.32) Renal function has been stable over the past year. - Continue current management. - Educated patient on the benefits of Jardiance for kidney protection. 4. Chronic diastolic CHF (congestive heart failure) (HCC) (I50.32) Recent hospitalization due to fluid overload attributed to excessive salt intake; currently stable with adherence to daily weight monitoring and compression stockings. - Continue current management. - Reinforced importance of strict sodium restriction and daily weight monitoring. 5. Anemia, unspecified type (D64.9) 6. Iron deficiency anemia, unspecified iron deficiency anemia type (D50.9) Chronic anemia with iron levels tending to run low; patient is compliant with iron supplementation. - Continue current iron supplementation. - Educated patient on the role of vitamin C in enhancing iron absorption. 7. MDD (major depressive disorder), recurrent episode, moderate (HCC) (F33.1) Stable COntinue current meds 8. Paroxysmal atrial fibrillation (HCC) (I48.0) On Eliquis 9. Essential hypertension, benign (I10) Stable Continue current meds 10. Hypothyroidism, unspecified type (E03.9) Check labs 3 months 11. Hyperlipidemia, unspecified hyperlipidemia type (E78.5) Continue current meds Check labs 3 months I agree with the Chief Complaint, ROS, and Past Histories independently gathered by the clinical supportive employment case manager and the remaining scribed note accurately describes my personal service to the patient. Medical Decision Making: Problems: Moderate: 2+ stable chronic illnesses Data: Unique test(s) ordered: 3+ Risk: Moderate: Drug management Medical Decision Making Level: 4 - Moderate Victor M Rocha MD The documentation for this note was completed by Kandi Woody MA acting as scribe for Victor M Rocha MD. March 07, 2025 2:05 PM. Kandi Woody MA [1] Social History Tobacco Use Smoking status: Former Current packs/day: 0.00 Types: Cigarettes Start date: 07/13/1961 Quit date: 07/13/1981 Years since quittin.6 Smokeless tobacco: Never Tobacco comments: Pt smoked one pack every 3 days. Vaping Use Vaping status: Never Used Substance Use Topics Alcohol use: No Drug use: No documented [facility] NoteHNO ID: [id number] Author: VICTOR M ROCHA MD Service: ? Author Type: Physician Type: Progress Notes Filed: 03/07/2025 17:56 Note Text: Chief Complaint Patient presents with: Recheck: 4 week f/u weakness HPI Gudelia Gupta is a 84 year old female who presents here today for follow up. Recording using [employer] software for draft documentation of the visit was discussed with the patient/authorized retail sales representative; all questions welcomed and answered. Patient/authorized retail sales representative agreed to proceed Gudelia Gupta is an 84-year-old female with a history of CHF, DM, and chronic anemia, presenting for follow-up after a recent hospitalization for CHF exacerbation. Gudelia was recently hospitalized earlier this month for a CHF exacerbation, which she attributes to excessive sodium intake. She reports not adhering to her low-sodium diet, leading to fluid retention. She was advised to go to the emergency room by her physician's office, where she was promptly admitted and treated. Since discharge, she has been monitoring her weight daily and is aware of the guidelines to seek medical attention if she gains more than 3 pounds in one day or 5 pounds in two days. She is attempting to adhere to a low-sodium diet but finds it challenging. Gudelia has a history of chronic anemia, which she believes may be related to a childhood exposure to hookworms. She is currently taking ferrous sulfate and vitamin C supplements to manage her anemia. She also wears compression stockings daily to manage lower extremity edema, which she notes is effective in reducing swelling. Gudelia is on glimepiride 2 mg daily for DM management. She reports a recent episode of hypoglycemia, which she attributes to prolonged periods of sewing without eating. She managed the episode by consuming canned pears and their juice, which alleviated her symptoms. She is also taking Jardiance and expresses concerns about her renal function, although she is compliant with her medication regimen. She remains active in her daily activities, including housework and cooking, with significant assistance from her . She enjoys sewing and has been making quilts for children in foster care, although she notes that prolonged periods of sewing can lead to fatigue. 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 Past medical history, appointments, medications, allergies reviewed. Previous Medical History PAST MEDICAL HISTORY Diagnosis Date Coronary atherosclerosis of unspecified type of vessel, fort bidwell or graft Stent x 2010 Depressive disorder, [...] on File Prior to Visit Medication Sig furosemide (LASIX) 40 mg tablet Take 1 tablet by mouth once daily. ferrous sulfate 325 mg (65 mg iron) tablet Take 1 tablet by mouth two times a day with meals. ascorbic acid, vitamin C, (VITAMIN C) 500 mg tablet Take 1 tablet by mouth two times a day. empagliflozin (JARDIANCE) 10 mg tablet Take 1 tablet by mouth once daily. Take 1 tablet once daily in the morning levothyroxine (SYNTHROID) 100 mcg tablet Take 1 tablet by mouth once daily. amitriptyline (ELAVIL) 50 mg tablet Take 1 tablet by mouth daily at bedtime. glimepiride (AMARYL) 4 mg tablet Take 0.5 tablets by mouth daily with breakfast. busPIRone (BUSPAR) 15 mg tablet Take 1 tablet by mouth three times a day. losartan (COZAAR) 100 mg tablet Take 100 mg by mouth once daily. potassium chloride ER (KLOR-CON) 20 mEq tablet Take two tablets by mouth once daily. omeprazole (PRILOSEC) 40 mg capsule Take 1 capsule by mouth once daily. oxyCODONE-acetaminophen (PERCOCET) 5-325 mg tablet TAKE 1 TO 2 TABLETS BY MOUTH EVERY 6 HOURS FOR PAIN metoprolol succinate ER (TOPROL XL) 50 mg 2 (more content not included)... [facility]08-15-2025 NoteHNO ID: [id number] Author: SHARA AGARWAL PA-C Service: ? Author Type: Physician Dietary Tech Type: Progress Notes Filed: 02/24/2025 13:25 Note Text: CHIEF COMPLAINT: Patient presents with: Positive FIT test Recheck This consult was requested by Carlos House APRN.CNP for an opinion regarding positive FIT, anemia. My final recommendations will be communicated to the requesting health care provider by way of the shared medical record for internal providers or letter via the [employer] for external providers. HPI: Gudelia Gupta is a 84 year old female who presents for Positive FIT test and Recheck. PMHx of T2DM, HLD, tremor, A fib, s/p pacemaker, CHF, GERD, CKD Daughter is present today as well as . Patient notes that she has always been iron deficient, has been dealing with this since being a child. Notes that her stools are black since restarting her Iron pills. Notes some mild constipation since starting Iron, taking Miralax in apple juice daily. Denies rectal bleeding, heartburn, nausea, vomiting. Appetite changes. Has been on Omeprazole for a long time. Latest Ref Rng 02/20/2025 Occult Blood, Stool Negative Positive ! Latest Ref Rng 02/14/2025 WBC 3.70 - 11.00 k/uL 5.90 RBC 3.90 - 5.20 m/uL 4.13 Hemoglobin 11.5 - 15.5 g/dL 9.8 (L) Hematocrit 36.0 - 46.0 % 33.8 (L) MCV 80.0 - 100.0 fL 81.8 MCH 26.0 - 34.0 pg 23.7 (L) MCHC 30.5 - 36.0 g/dL 29.0 (L) RDW-CV 11.5 - 15.0 % 21.2 (H) Platelet Count 150 - 400 k/uL 354 MPV 9.0 - 12.7 fL 10.6 Neut% % 57.9 Abs Neut (ANC) 1.45 - 7.50 k/uL 3.41 Lymph% % 24.9 Abs Lymph 1.00 - 4.00 k/uL 1.47 Cortland% % 12.7 Abs [place] <0.87 k/uL 0.75 Eosin% % 3.4 Abs Eosin <0.46 k/uL 0.20 Baso% % 0.8 Abs Baso <0.11 k/uL 0.05 Immature Gran % % 0.3 IMMATURE GRANS (ABS) <0.10 k/uL <0.03 NRBC /100 WBC 0.0 Absolute nRBC <0.01 k/uL <0.01 DTYPE Auto Glucose 74 - 99 mg/dL 73 (L) BUN 7 - 21 mg/dL 20 Creatinine 0.58 - 0.96 mg/dL 1.43 (H) Sodium 136 - 144 mmol/L 135 (L) Potassium 3.7 - 5.1 mmol/L 4.3 Chloride 98 - 107 mmol/L 100 CO2 22 - 30 mmol/L 22 Anion Gap 8 - 15 mmol/L 13 Calcium 8.5 - 10.2 mg/dL 9.5 eGFR >=60 mL/min/1.73m? 36 (L) Iron 41 - 186 ug/dL 35 (L) TIBC 232 - 386 ug/dL 392 (H) Transferrin Saturation 15.0 - 57.0 % 8.9 (L) Ferritin 14.7 - 205.1 ng/mL 66.7 Legend: (L) Low (H) High Legend: ! Abnormal Record Review: [facility] / Outside records reviewed. PAST MEDICAL HISTORY Diagnosis Date Coronary atherosclerosis of unspecified type of vessel, fort bidwell or graft Stent x 2010 Depressive disorder, [...] 1985 Hysterectomy, ROSALIO W TRY ATRIOGRM HP Allergies: ALLERGIES Allergen Reactions Poison Fany Sulfa (Sulfonamide * Hives Medications: furosemide (LASIX) 40 mg tablet Take 1 tablet by mouth once daily. ferrous sulfate 325 mg (65 mg iron) tablet Take 1 tablet by mouth two times a day with meals. ascorbic acid, vitamin C, (VITAMIN C) 500 mg tablet Take 1 tablet by mouth two times a day. empagliflozin (JARDIANCE) 10 mg tablet Take 1 tablet by mouth once daily. Take 1 tablet once daily in the morning levothyroxine (SYNTHROID) 100 mcg tablet Take 1 tablet by mouth once daily. amitriptyline (ELAVIL) 50 mg tablet Take 1 tablet by mouth daily at bedtime. glimepiride (AMARYL) 4 mg tablet Take 0.5 tablets by mouth daily with breakfast. busPIRone (BUSPAR) 15 mg tablet Take 1 tablet by mouth three times a day. losartan (COZAAR) 100 mg tablet Take 100 mg by mouth once daily. potassium chloride ER (KLOR-CON) 20 mEq tablet Take two tablets by mouth once daily. omeprazole (PRILOSEC) 40 mg capsule Take 1 capsule by mouth once daily. oxyCODONE-acetaminophen (PERCOCET) 5-325 mg tablet TAKE 1 TO 2 TABLETS BY MOUTH EVERY 6 HOURS FOR PAIN metoprolol succinate ER (TOPROL XL) 50 mg 24 hr tablet Take 50 mg by mouth once daily. nitroglycerin sublingual (NITROSTAT) 0.4 mg SL tablet Dissolve 1 tablet under the tongue every 5 minutes as needed for chest pain. ketotifen fumarate (ALAWAY) 0.025 % (0.035 %) ophthalmic solution Use 1 Drop in both (more content not included)...[facility]08-15-2025 History of Present illness Narrative* Shara Agarwal PA-C - 02/24/2025 1:02 PM EDT CHIEF COMPLAINT: Patient presents with: Positive FIT test Recheck This consult was requested by Carlos House APRN.CNP for an opinion regarding positive FIT, anemia.My final recommendations will be communicated to the requesting health care provider by way of the shared medical record for internal providers or letter via the [employer] for external providers. HPI: Gudelia Gupta is a 84 year old female who presents for Positive FIT test and Recheck. PMHx of T2DM, HLD, tremor, A fib, s/p pacemaker, CHF, GERD, CKD Daughter is present today as well as . Patient notes that she has always been iron deficient, has been dealing with this since being a child. Notes that her stools are black since restarting her Iron pills. Notes some mild constipation since starting Iron, taking Miralax in apple juice daily. Denies rectal bleeding, heartburn, nausea, vomiting. Appetite changes. Has been on Omeprazole for a long time. Latest Ref Rng 02/20/2025 Occult Blood, Stool Negative Positive ! Latest Ref Rng 02/14/2025 WBC 3.70 - 11.00 k/uL 5.90 RBC 3.90 - 5.20 m/uL 4.13 Hemoglobin 11.5 - 15.5 g/dL 9.8 (L) Hematocrit 36.0 - 46.0 % 33.8 (L) MCV 80.0 - 100.0 fL 81.8 MCH 26.0 - 34.0 pg 23.7 (L) MCHC 30.5 - 36.0 g/dL 29.0 (L) RDW-CV 11.5 - 15.0 % 21.2 (H) Platelet Count 150 - 400 k/uL 354 MPV 9.0 - 12.7 fL 10.6 Neut% % 57.9 Abs Neut (ANC) 1.45 - 7.50 k/uL 3.41 Lymph% % 24.9 Abs Lymph 1.00 - 4.00 k/uL 1.47 [place]% % 12.7 Abs [place] <0.87 k/uL 0.75 Eosin% % 3.4 Abs Eosin <0.46 k/uL 0.20 Baso% % 0.8 Abs Baso <0.11 k/uL 0.05 Immature Gran % % 0.3 IMMATURE GRANS (ABS) <0.10 k/uL <0.03 NRBC /100 WBC 0.0 Absolute nRBC <0.01 k/uL <0.01 DTYPE Auto Glucose 74 - 99 mg/dL 73 (L) BUN 7 - 21 mg/dL 20 Creatinine 0.58 - 0.96 mg/dL 1.43 (H) Sodium 136 - 144 mmol/L 135 (L) Potassium 3.7 - 5.1 mmol/L 4.3 Chloride 98 - 107 mmol/L 100 CO2 22 - 30 mmol/L 22 Anion Gap 8 - 15 mmol/L 13 Calcium 8.5 - 10.2 mg/dL 9.5 eGFR >=60 mL/min/1.73m 36 (L) Iron 41 - 186 ug/dL 35 (L) TIBC 232 - 386 ug/dL 392 (H) Transferrin Saturation 15.0 - 57.0 % 8.9 (L) Ferritin 14.7 - 205.1 ng/mL 66.7 Legend: (L) Low (H) High Legend: ! Abnormal Record Review: [facility] / Outside records reviewed. PAST MEDICAL HISTORY Diagnosis Date Coronary atherosclerosis of unspecified type of vessel, fort bidwell or graft Stent x 2010 Depressive disorder, [...] 1985 Hysterectomy, ROSALIO W TRY ATRIOGRM HP Allergies: ALLERGIES Allergen Reactions Poison Fany Sulfa (Sulfonamide * Hives Medications: furosemide (LASIX) 40 mg tablet Take 1 tablet by mouth once daily. ferrous sulfate 325 mg (65 mg iron) tablet Take 1 tablet by mouth two times a day with meals. ascorbic acid, vitamin C, (VITAMIN C) 500 mg tablet Take 1 tablet by mouth two times a day. empagliflozin (JARDIANCE) 10 mg tablet Take 1 tablet by mouth once daily. Take 1 tablet once daily in the morning levothyroxine (SYNTHROID) 100 mcg tablet Take 1 tablet by mouth once daily. amitriptyline (ELAVIL) 50 mg tablet Take 1 tablet by mouth daily at bedtime. glimepiride (AMARYL) 4 mg tablet Take 0.5 tablets by mouth daily with breakfast. busPIRone (BUSPAR) 15 mg tablet Take 1 tablet by mouth three times a day. losartan (COZAAR) 100 mg tablet Take 100 mg by mouth once daily. potassium chloride ER (KLOR-CON) 20 mEq tablet Take two tablets by mouth once daily. omeprazole (PRILOSEC) 40 mg capsule Take 1 capsule by mouth once daily. oxyCODONE-acetaminophen (PERCOCET) 5-325 mg tablet TAKE 1 TO 2 TABLETS BY MOUTH EVERY 6 HOURS FOR PAIN metoprolol succinate ER (TOPROL XL) 50 mg 24 hr tablet Take 50 mg by mouth once daily. nitroglycerin sublingual (NITROSTAT) 0.4 mg SL tablet Dissolve 1 tablet under the tongue every 5 minutes as needed for chest pain. ketotifen fumarate (ALAWAY) 0.025 % (0.035 %) ophthalmic solution Use 1 Drop in both eyes twice daily. blood sugar diagnostic ([email or web address] VERIO TEST STRIPS) test strip TEST BLOOD [...] by mouth every 4 hours as needed. (Patient not taking: Reported on 02/06/2025) FAMILY HISTORY Problem Relation Age of Onset Cancer Mother liver other (old age) Father Cancer Sister thyroid Employer And Job Title: None on file Years Of Education Completed: Not specified Marital Status: SOCIAL HISTORY[1] Review of Systems: Review of Systems Gastrointestinal: Positive for blood in stool. All other systems reviewed and are negative. Are you taking any blood thinners? Yes, Xarelto Physical Examination: BP 132/64 Pulse 66 Ht 5' 8 (1.73m) Wt 182 lb (82.6kg) SpO2 96% BMI 27.68 kg/(m^2). Physical Exam Constitutional: Appearance: Normal appearance. HENT: Head: Normocephalic and atraumatic. Eyes: General: No scleral icterus. Extraocular Movements: Extraocular movements intact. Conjunctiva/sclera: Conjunctivae normal. Pupils: Pupils are equal, round, and reactive to light. Cardiovascular: Rate and Rhythm: Normal rate and regular rhythm. Pulses: Normal pulses. Heart sounds: Normal heart sounds. Pulmonary: Effort: Pulmonary effort is normal. Breath sounds: Normal breath sounds. Abdominal: General: Abdomen is flat. Bowel sounds are normal. Palpations: Abdomen is soft. Tenderness: There is no abdominal tenderness. Musculoskeletal: General: Normal range of motion. Cervical back: Normal range of motion and neck supple. Comments: Using walker to ambulate Skin: General: Skin is warm and dry. Coloration: Skin is not jaundiced. Neurological: General: No focal deficit present. Mental Status: She is alert and oriented to person, place, and time. Psychiatric: Mood and Affect: Mood normal. Behavior: Behavior normal. Thought Content: Thought content normal. Judgment: Judgment normal. Assessment/Plan (D64.9) Anemia, unspecified type (R19.5) Positive fecal occult blood test 1. Anemia, unspecified type -- Patient with NORAH and positive FIT. Denies symptoms today. -- Discussed in detail about EGD/colonoscopy for further evaluation. She declines this today. -- Recommend routine blood work for surveillance. Discussed red flag symptoms including BRBPR, melena, abdominal pain, nausea/vomiting. She will reach out if symptoms would occur. 2. Positive fecal occult blood test -- Patient with NORAH and positive FIT. Denies symptoms today. -- Discussed in detail about EGD/colonoscopy for further evaluation. She declines this today. -- Recommend routine blood work for surveillance. Discussed red flag symptoms including BRBPR, melena, abdominal pain, nausea/vomiting. She will reach out if symptoms would occur. Follow up in office PRN. Recommended to please call office/go to ER if fever, chills, chest pain, SOB, diarrhea, nausea, emesis, worsening abdominal pain, dehydration occurs I spent a total of 20 minutes on the date of the service which included preparing to see the patient, [id number] patient care, completing clinical documentation, obtaining and/or reviewing separately obtained history, performing a medically appropriate examination, counseling and educating the pat ient/family/caregiver, and ordering medications, tests, or procedures. Shara Agarwal PA-C February 24, 2025 1:22 PM [1] Social History Tobacco Use Smoking status: Former Current packs/day: 0.00 Types: Cigarettes Start date: 07/13/1961 Quit date: 07/13/1981 Years since quittin.6 Smokeless tobacco: Never Tobacco comments: Pt smoked one pack every 3 days. Vaping Use Vaping status: Never Used Substance Use Topics Alcohol use: No Drug use: No [facility] Telephone encounter Note * Telephone Encounter - Carlos House APRN.CNP - 02/23/2025 4:42 PM EDT The following approved medication requests have been transmitted electronically. Requested Prescriptions Pending Prescriptions Disp Refills furosemide (LASIX) 40 mg tablet 90 tablet 3 Sig: Take 1 tablet by mouth once daily. Carlos House APRN.CNP [facility] Miscellaneous Notes* Telephone Encounter - Carlos House APRN.CNP - 02/23/2025 4:42 PM EDT The following approved medication requests have been transmitted electronically. Requested Prescriptions Pending Prescriptions Disp Refills furosemide (LASIX) 40 mg tablet 90 tablet 3 Sig: Take 1 tablet by mouth once daily. Carlos House APRN.CNP * Telephone Encounter - Shelly Holcomb - 02/23/2025 10:20 AM EDT Prescription Refill Information The patient has been identified by name and date of : Yes Caregiver verified no other encounters exist for this prescription request: Yes Caregiver confirmed with patient/requestor that no other refills are due, in the near future, with this provider at this time: Yes The last office visit in the department: 02/14/25 Does the patient have a future office visit with this provider/department: Yes Requested Prescriptions Pending Prescriptions Disp Refills furosemide (LASIX) 40 mg tablet 90 tablet 3 Sig: Take 1 tablet by mouth once daily. Shelly Mohan [facility] February 23, 2025 10:23 AM documented in this encounterDo[facility]08-14-2025 Telephone encounter Note * Telephone Encounter - Shelly Holcomb - 02/23/2025 10:20 AM EDT Prescription Refill Information The patient has been identified by name and date of : Yes Caregiver verified no other encounters exist for this prescription request: Yes Caregiver confirmed with patient/requestor that no other refills are due, in the near future, with this provider at this time: Yes The last office visit in the department: 02/14/25 Does the patient have a future office visit with this provider/department: Yes Requested Prescriptions Pending Prescriptions Disp Refills furosemide (LASIX) 40 mg tablet 90 tablet 3 Sig: Take 1 tablet by mouth once daily. Shelly Mohan [facility] February 23, 2025 10:23 AM [facility]08-[facility]25 NoteHNO ID: [id number] Author: SHARLENE CHERRY APRN.YARN DUMPER Service: ? Author Type: Nurse Practitioner Type: Progress Notes Filed: 02/14/2025 13:29 Note Text: Transitional Care Management TCM Eligibility Documentation The following information was gathered during patient outreach 02/13/2025 Date of Outreach: Outreach Attempt 1: Contact Made Date of Discharge 02/10/2025 Provider Documentation Gudelia Gupta is a 84 year old female here today for a follow up from recent hospitalization. I have reviewed the patient's hospital course including discharge summary, discharge medications, and follow up needs with the patient and any family members present at today's visit. HPI Patient presents for hospital follow up. Patient was initially seen in office 02/06 and due to labs was referred to [facility] ER where she was found to be in acute on chronic heart failure. Patient was hospitalized 02/08 to 02/11 where she was diuresed with IV lasix. Echo shows EF 65% with severe pulmonary HTN. Patient was evaluated by speech and GI for dysphagia and OP follow up was recommended with Dr. Leroy. Has follow up with G. Patient reports she is no longer Shortness of Breath and feels she is back to her baseline. BP 128/66 Pulse 80 Wt 84 kg (185 lb 3 oz) SpO2 98% BMI 29.89 kg/m? Physical Exam PHYSICAL EXAMINATION: General appearance: Well appearing, alert, in no acute distress, well-hydrated, well nourished. Lungs: Lungs clear to auscultation. No wheezing, rhonchi, rales. Heart: RRR without murmur, gallop, or rubs. No ectopy Extremities: No deformities, edema, skin discoloration, clubbing or cyanosis. Good capillary refill. , Pulses: 2+ Peripheral pulses: Normal Neuro: Gait normal. Reflexes normal and symmetric. Sensation grossly intact. ASSESSMENT/PLAN: 1. Chronic diastolic CHF (congestive heart failure) (HCC) - ICD9: 428.32, 428.0, ICD10: I50.32 (primary diagnosis) - Continue current medications - Encouraged sodium restriction - Encouraged daily weights -Follows with Dr. Root, appt 04/27 for follow up and pacer check. 2. Anemia, unspecified type - ICD9: 285.9, ICD10: D64.9 - COMPLETE BLOOD COUNT AND DIFFERENTIAL 3. Stage 3a chronic kidney disease (HCC) - ICD9: 585.3, ICD10: N18.31 - eGFR: 39 Stable - Counseled on avoiding NSAIDs, adequate hydration - Counseled on low sodium diet - BASIC METABOLIC PANEL 4. Secondary pulmonary arterial hypertension (HCC) - ICD9: 416.8, ICD10: I27.21 -Follows with Dr. Root, appt 04/27 for follow up and pacer check. 5. Iron deficiency anemia, unspecified iron deficiency anemia type - ICD9: 280.9, ICD10: D50.9 -Continue supplementation 6. Hospital discharge follow-up - ICD9: V67.59, ICD10: Z09 -Stable 7. Paroxysmal atrial fibrillation (HCC) - ICD9: 427.31, ICD10: I48.0 -Follows with Dr. Root, appt 04/27 for follow up and pacer check. Sharlene Cherry APRN.[facility]08-04-2025 NoteHNO ID: [id number] Author: SHANTI ASTORGA RN Service: ? Author Type: Registered Nurse Type: Progress Notes Filed: 02/14/2025 09:10 Note Text: Patient returned call and TCM completed. Pt plans to come to appt as scheduled for tomorrow. Shanti Astorga RN[facility] History of Present illness Narrative* Shanti Astorga RN - 02/13/2025 4:50 PM EDT Patient returned call and TCM completed. Pt plans to come to appt as scheduled for tomorrow. Shanti Astorga RN * Shanti Astorga RN - 02/13/2025 2:13 PM EDT TRANSITION CARE MANAGEMENT (TCM) INITIAL CONTACT Meter Inspector Outreach Provider Action/FYI: 7 day TCM Call to pt, VM full, unable to leave message or call back number. (February 13, 2025) Initial contact with patient post discharge, spoke to called pt, unable to leave message, 02/13/25. Patient identified by name and . TRANSITION CARE MANAGEMENT INITIAL OUTREACH DOCUMENTATION: 02/13/2025 Date of Outreach: Outreach Attempt 1: Contact Made Date of Discharge 02/10/2025 SUMMARY: -Pt discharged from [facility] on 02/10/25. -Admitted for: Dysphagia Do you have a hospital follow up appointment with your PCP? Appointment on 02/14/25 with Sharlene Cherry. Yes. Remind patient of appointment date, time, and location. If not within 14 calendar days of discharge - please reschedule accordingly. MEDICATIONS: Many patients have questions or concerns about their medications once they are home. Were you prescribed any new medications? No Were you told to hold any medications? No Were any of your medications discontinued? No Do you have any questions about getting or taking your medications? No Your discharge instructions/After visit Summary (AVS) are important in guiding you through the recovery process. Is there anything I might help you understand? No Do you have all the necessary equipment and supplies at home? Yes Medical records from recent hospitalization: [facility]where [facility] Telephone encounter Note * Telephone Encounter - Kandi Woody MA - 02/13/2025 3:24 PM EDT Below left on Phan's confidential VM. Kandi Woody MA [facility]08-[facility] Miscellaneous Notes* Telephone Encounter - Kandi Woody MA - 02/13/2025 3:24 PM EDT Below left on Phan's confidential VM. Kandi Woody MA * Telephone Encounter - Victor M Rocha MD - 02/13/2025 3:13 PM EDT Noted; OK to continue current medication, will monitor for any issues. OK for nursing visits as requested Victor M Rocha MD * Telephone Encounter - Rose Manuel LPN - 02/13/2025 3:00 PM EDT Maryann with [facility] Nursing calls for the followin) Pt is taking Cipro for uti for another week - shows it inhibits the metabolizing of simvastatin. 2) Amitriptyline/potassium - amitriptyline delays emptying of GI, potassium will sit too long in G[place]. 3) POC: Nursing will see pt once a week x 4 weeks to educate pt on CHF and medications. Call Phan @ [phone] messages as Maryann will be off work. Rose Manuel LPN [facility] Telephone encounter Note * Telephone Encounter - Victor M Rocha MD - 02/13/2025 3:13 PM EDT Noted; OK to continue current medication, will monitor for any issues. OK for nursing visits as requested Victor M Rocha MD [facility] Telephone encounter Note* Telephone Encounter - Rose Manuel LPN - 02/13/2025 3:00 PM EDT Maryann with [facility] Nursing calls for the followin) Pt is taking Cipro for uti for another week - shows it inhibits the metabolizing of simvastatin. 2) Amitriptyline/potassium - amitriptyline delays emptying of GI, potassium will sit too long in G[place]. 3) POC: Nursing will see pt once a week x 4 weeks to educate pt on CHF and medications. Call Phan @ [phone] with 's messages as Maryann will be off work. Rose Manuel LPN [facility] NoteHNO ID: [id number] Author: SHANTI ASTORGA, RN Service: ? Author Type: Registered Nurse Type: Progress Notes Filed: 02/14/2025 09:10 Note Text: TRANSITION CARE MANAGEMENT (TCM) INITIAL CONTACT Meter Inspector Outreach Provider Action/FYI: 7 day TCM Call to pt, VM full, unable to leave message or call back number. (February 13, 2025) Initial contact with patient post discharge, spoke to called pt, unable to leave message, 02/13/25. Patient identified by name and . TRANSITION CARE MANAGEMENT INITIAL OUTREACH DOCUMENTATION: 02/13/2025 Date of Outreach: Outreach Attempt 1: Contact Made Date of Discharge 02/10/2025 SUMMARY: -Pt discharged from [facility] on 02/10/25. -Admitted for: Dysphagia Do you have a hospital follow up appointment with your PCP? Appointment on 02/14/25 with Sharlene Cherry. Yes. Remind patient of appointment date, time, and location. If not within 14 calendar days of discharge - please reschedule accordingly. MEDICATIONS: Many patients have questions or concerns about their medications once they are home. Were you prescribed any new medications? No Were you told to hold any medications? No Were any of your medications discontinued? No Do you have any questions about getting or taking your medications? No Your discharge instructions/After visit Summary (AVS) are important in guiding you through the recovery process. Is there anything I might help you understand? No Do you have all the necessary equipment and supplies at home? Yes Medical records from recent hospitalization[facility] NotePatient Outreach (FAMPWS) GUDELIA GUPTA ([id number]) 1940 F Date Time Provider Department 02/13/25 KANDI WOODY During your visit today, we recorded the following information about you: Shanti Astorga, NIYA 02/14/2025 9:10 AM Signed TRANSITION CARE MANAGEMENT (TCM) INITIAL CONTACT Meter Inspector Outreach Provider Action/FYI: 7 day TCM Call to pt, VM full, unable to leave message or call back number. (February 13, 2025) Initial contact with patient post discharge, spoke to called pt, unable to leave message, 02/13/25. Patient identified by name and . TRANSITION CARE MANAGEMENT INITIAL OUTREACH DOCUMENTATION: 02/13/2025 Date of Outreach: Outreach Attempt 1: Contact Made Date of Discharge 02/10/2025 SUMMARY: -Pt discharged from [facility] on 02/10/25. -Admitted for: Dysphagia Do you have a hospital follow up appointment with your PCP? Appointment on 02/14/25 with Sharlene Cherry. Yes. Remind patient of appointment date, time, and location. If not within 14 calendar days of discharge - please reschedule accordingly. MEDICATIONS: Many patients have questions or concerns about their medications once they are home. Were you prescribed any new medications? No Were you told to hold any medications? No Were any of your medications discontinued? No Do you have any questions about getting or taking your medications? No Your discharge instructions/After visit Summary (AVS) are important in guiding you through the recovery process. Is there anything I might help you understand? No Do you have all the necessary equipment and supplies at home? Yes Medical records from recent hospitalization: Care Everywhere Shanti Astorga RN 02/14/2025 9:10 AM Signed Patient returned call and TCM completed. Pt plans to come to appt as scheduled for tomorrow. Shanti Astorga RN Allergies As of Date: 02/13/2025 Noted Allergy Reaction POISON FANY 10/17/2005 SULFA (SULFONAMIDE ANTIBIOTICS) 10/17/2005 4 - Hives Date Reviewed: 02/06/2025 Reviewed by: Kandi Woody MA - Fully Assessed Reason for Visit: Transition Of Care [4074] Cmt: Prescriptions as of 02/14/2025 - ciprofloxacin HCl (CIPRO) 500 mg tablet Take 1 tablet by mouth two times a day for 7 days. - ferrous sulfate 325 mg (65 mg iron) tablet Take 1 tablet by mouth two times a day with meals. - ascorbic acid, vitamin C, (VITAMIN C) 500 mg tablet Take 1 tablet by mouth two times a day. - empagliflozin (JARDIANCE) 10 mg tablet Take [...] eyes twice daily. - blood sugar diagnostic ([email or web address] VERIO TEST STRIPS) test strip TEST BLOOD [...] knee pain. 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 Victor M Rocha MD Status:DIS IN Location: [facility] [id number] Providers Date of Admission: 02/08/25 Date of Discharge: 02/10/25 Primary Care Physician: Dr. Victor M Rocha MD Consultations 02/10/25 11:54 Consult: Gastroenterology Routine Consulting Provider: [facility] Reason for Consult: dysphagia, abnormal modified barium swallow EMERGENT Consult: No MD Notified: Yes Date Notified: 02/10/25 Time Notified: 11:55 Method of Notification: Text Reason For Visit: AE CHF WITH ACUTE RESPIRATORY INSUFFICIENCY Diagnosis Discharge Diagnosis (1) Dysphagia: Status: Acute Code(s): R13.10 - Dysphagia, unspecified Plan #Acute exacerbation of HFrEF * Patient currently on 4 L of oxygen which is her baseline. Admitted with complaint of shortness of breath and chest x-ray showed mild pulmonary edema with moderate cardiomegaly and trace left pleural effusion with no consolidations consistent with acute exacerbation of heart failure. * Has known EF of 45% and also known pulmonary arterial hypertension. * Repeat 2D echo shows EF of 65% with severe pulmonary hypertension with pulmonary artery systolic pressure of 76 mmHg. * Been diuresed with IV Lasix. 2D echo ordered and pending. Breathing treatments bronchodilators. Titrate oxygen to maintain saturation above 90%. * Switch to p.o. Lasix. * #Dysphagia * Modified barium swallow showed mild oral dysphagia and pharyngoesophageal dysphagia. GI consulted per speech therapy recommendations. Await GI recommendations. * #Debility and weakness: PT OT on board. Fall precautions. #Paroxysmal A-fib: S/p AV isael ablation. Normal sinus rhythm. On xarelto #History of sick sinus syndrome, s/p pacemaker. Stable #Benign essential hypertension: On amlodipine and metoprolol as well as losartan and furosemide # Hyperlipidemia: On statin #History of anemia: Hemoglobin is 8.6 which is around her baseline. Monitor closely. #CKD III: Cr is 1.29. Will monitor. #Hypothyroidism: On Synthroid #Type 2 diabetes mellitus: On glimepiride and empagliflozin was on hold. Insulin sliding scale. Accu-Cheks ACHS. #History of multiple myeloma: Stable. Follow-up with oncology on outpatient basis #Depression with anxiety: On buspirone and amitriptyline #GERD: On PPI #History of osteoporosis: Stable #Osteoarthritis: On oxycodone acetaminophen DVT prophylaxis: On xarelto Disposition: Discharge home once okay with GI. Medications at Discharge Home Medications buspirone 15 [...] (Synthroid) 100 mcg PO DAILY THYROID 12/14/23 furosemide 40 mg tablet (Lasix) 40 mg PO DAILY water pill #60 tabs 12/17/23 rivaroxaban 20 mg tablet (Xarelto) 20 mg PO QPM #90 tabs 10/06/24 losartan 100 mg tablet 100 mg PO DAILY blood pressure #90 tabs 11/18/24 potassium chloride 20 mEq tablet,extended release(part/cryst) 40 meq (2 x 20 mEq) PO QDAY #90 tabs 11/21/24 metoprolol succinate 50 mg tablet,extended release 24 hr 50 mg PO DAILY heart/BP #90 tabs 11/23/24 simvastatin 20 mg tablet 20 mg PO QHS CHOLESTEROL #90 tabs 12/22/24 amlodipine 10 mg tablet 10 mg PO DAILY 02/08/25 ciprofloxacin HCl 500 mg tablet 500 mg PO BID 02/08/25 ferrous sulfate 325 mg (65 mg iron) tablet (FeroSul) 65 mg PO DAILY 02/08/25 oxycodone-acetaminophen 5 mg-325 mg tablet 1 tab PO TID PRN PRN pain 02/08/25 Hospital Course Operations None Procedures 2-D Echocardiogram Summary of Care Provided Minutes Spent on Discharge: 45 Hospital Course: Patient is an 84-year-old female with extensive past medical history as outlined was admitted to the ED on 02/08/2025 with complaint of shortness of breath which worsened with exertion but gradually worsened to the point where it was present at rest also. She felt very tired. She had recently been diagnosed with a urine infection and treated with ciprofloxacin. Said her symptoms are similar to when she previously had acute exacerbation of CHF. She has been taking her furosemide as prescribed and denied any lower extremity swelling. On admission proBNP was elevated at 1833 and chest x- (more content not included)...[facility]08-01-2025 Discharge summary Author Juice Elizabeth [facility] Note Date/Time February 10, 2025 6:2 6pm [facility] Medical Records Department [address] [place] [address] Instructions for Home/Discharge Instructions 02/10/25 1823 MR#: [id number] Acct: [id number] Name: GUDELIA GUPTA Rep #:[id number] : 1940 84 From: Juice Ley [facility] DO PCP: Dr. Victor M Rocha MD Status:AD M IN Discharge Instructions DC O2, CPAP, BIPAP needs Home O2 Discharge instructions: No Dressing / Incision Discharge Activity: No Restrictions Follow Up Care Test Results: Test results from this visit will be discussed in further detail at your follow- up appointment, if applicable. Discharge Plan Admission Admit Date/Time: 02/08/25 20:40 Primary Reason for Your Visit: shortness of breath Attending Provider: Joanne Vo Primary Care Provider: Victor M Rocha Consulting Providers: Deandre Xiao Discharge Orders/Prescriptions Prescriptions: Continued glimepiride 4 mg tablet 2 mg [...] 100 mcg tablet 100 mcg PO DAILY furosemide [Lasix] 40 mg tablet 40 mg PO DAILY Qty: 60 0RF oxycodone-acetaminophen 5-325 mg tablet 1 tab PO TID PRN PRN (Reason: pain) amlodipine 10 mg tablet 10 mg PO DAILY ferrous sulfate [FeroSul] 325 mg (65 mg iron) tablet 65 mg PO DAILY ciprofloxacin HCl 500 mg tablet 500 mg PO BID Xarelto 20 mg tablet 20 mg PO QPM Qty: 90 3RF Rx Instructions: must administer with evening meal losartan 100 mg tablet 100 mg PO DAILY Qty: 90 3RF potassium chloride 20 mEq tablet,ER particles/crystals 40 meq PO QDAY Qty: 90 3RF metoprolol succinate 50 mg tablet extended release 24 hr 50 mg PO DAILY Qty: 90 3RF simvastatin 20 mg tablet 20 mg PO QHS Qty: 90 3RF Referrals / Follow Up: Victor M Rocha MD [Primary Care Provider] - Disposition Disposition (needs filled in before D/C Order can be placed): Home, Self Care 02/10/251825<Electronically signed by Juice Elizabeth DO>Juice Elizabeth DO CC: Dr. Deandre Xiao DO; Dr. Victor M Rocha MD ~ Signed [facility] Work Phone: 1(669) 599-677108-01-2025 Consult note Author Brock Leroy [facility] Note Date/Time February 10, 2025 6:[address] [facility] Medical Records Department [address] [place] [address] Consultation - GI 02/10/25 1819 MR#: [id number] Acct: [id number] Name: GUDELIA GUPTA Rep #:[id number] : 1940 84 From: Brock Leroy DO PCP: Dr. Victor M Rocha MD Status:AD M IN Location: [place] [id number]- HPI Consult Data Date of Consult: 02/10/25 HPI Narrative Reason for Consultation: Abnormal imaging HPI Narrative: GUDELIA GUPTA, is 84-year-old female history of A-fib, sick sinus syndrome status post pacemaker, on chronic anticoagulation in the form of Xarelto, acute hypoxemic respiratory failure, heart failure, CAD status post stent, pulmonary artery hypertension. The patient states she currently does not wear oxygen at home despite her reported history of acute hypoxemic respiratory failure. States she was prescribed oxygen sometime ago however she did not use it so she returned it. Patient notes several months of worsening dyspnea on exertion. She was diagnosed with CHF exacerbation and acute on chronic heart failure. I was asked to see her due to abnormal swallowing test. She underwent speech and swallow evaluation and during her video swallow study it was noted to have narrowing at the base that esophagus. [facility] Medical History Coronary artery disease Iron deficiency anemia History of non-ST elevation myocardial infarction (NSTEMI) (2013) Longstanding persistent atrial fibrillation Essential (primary) hypertension Anxiety Hypothyroidism Hyperlipidemia Secondary pulmonary arterial hypertension Atherosclerosis of coronary artery of [place] heart without angina pectoris Paroxysmal atrial fibrillation Paroxysmal atrial flutter Sick sinus syndrome Home Medications ?Medication ?Instructions ?Recorded ?Last Taken ?Type buspirone 15 mg tablet 15 mg PO BID ANXIETY 3 Unknown History omeprazole 40 mg capsule,delayed 40 mg PO DAILY ACID R EFLUX 06/02/13 04/11/24 History release nitroglycerin 0.4 mg sublingual 0.4 mg sublingual Q5M PRN CHEST 04/21/15 Unknown History tablet PAIN glimepiride 4 mg tablet 2 mg PO DAILY DIABETES 01/2404/08/24 History amitriptyline 50 mg tablet 50 mg PO QHS DEPRESSION 03/04 Unknown History empagliflozin 10 mg tablet 10 mg PO DAILY DIABETES 03/04 Unknown History (Jardiance) ketotifen fumarate 0.025 % (0.035 1 drp ophthalmic (ey e) BID PRN 02/17/23 Unknown History %) eye drops ([place]) ITCHING/ALLERGIES levothyroxine 100 mcg tablet 100 mcg PO DAILY THYROID 12/14/23 Unknown History (Synthroid) furosemide 40 mg tablet (Lasix) 40 mg PO DAILY water p ill #60 tabs 12/17/23 Unknown Rx rivaroxaban 20 mg tablet (Xarelto) 20 mg PO QPM #90 ta bs 10/06/24 Unknown Rx losartan 100 mg tablet 100 mg PO DAILY blood pressu re #90 11/18/24 Unknown Rx tabs potassium chloride 20 mEq 40 meq (2 x 20 mEq) PO QDAY #90 11/21/24 Unknown Rx tablet,extended release(part/cryst) tabs metoprolol succinate 50 mg 50 mg PO DAILY heart/BP #90 tabs 11/23/24 Unknown Rx tablet,extended release 24 hr simvastatin 20 mg tablet 20 mg PO QHS CHOLESTEROL #9 0 tabs 12/22/24 Unknown Rx amlodipine 10 mg tablet 10 mg PO DAILY 02/08/25 Unkn own History ciprofloxacin HCl 500 mg tablet 500 mg PO BID 02/08/25 Unknown History ferrous sulfate 325 mg (65 mg 65 mg PO DAILY 02/08/25 Unknown History iron) tablet (FeroSul) oxycodone-acetaminophen 5 mg-325 1 tab PO TID PRN PRN pain 02/08/25 Unknown History mg tablet Allergy/AdvReac Type Severity Reaction Status Date / Time poison fany extract (Poison Allergy Rash Verified 02/08/25 16:56 Fany Extract) Sulfa (Sulfonamide Allergy Hives Verified 02/08/25 16:56 Antibiotics) Family History Mother Cancer Father Cancer Brother CAD (coronary artery disease) Sister CAD (coronary artery disease) Surgical History S/P kyphoplasty History of tubal ligation History of appendectomy History of hysterectomy History of left heart catheterization (10/09/13) History of coronary artery stent placement (09/2010) Hx of atrioventricular node ablation (03/31/16) Presence of cardiac pacemaker (04/26/15) Social History household members: spouse Smoking Status: Former smoker how long ago did patient quit smokin's alcohol intake: never substance use type: does not use caffeine: Yes Type: coffee Number of servings: 3 ROS Constitutional Constitutional: Denies fatigue, fever(s), poor appetite, weight gain or weight loss Gastrointestinal Gastrointestinal: Denies belching, bloating, change in bowel habits, change in stool character, chewing difficulty, coffee ground emesis, constipation, cramping, diarrhea, dyspepsia, dysphagia, early satiety, excessive flatus, fecalincontinence, heartburn, hematemesis, hematochezia, hemorrhoids, loose stools, melena, nausea, odynophagia, rectal bleeding, tenesmus, vomiting or weight changes Physical Exam Const alert, oriented x3, no apparent distress and healthy appearing General Appearance: cooperative GI normal to inspection, nondistended, normoactive bowel sounds, soft to palpation,non-tender and non-distended Percussion: normal to percussion Rectal Exam: deferred Lab / Micro Data 02/10/25 06:24 02/10/25 06:24 Labs: Laboratory Results - last 24 hr 02/09/25 21:02: POC Glucose 164 H 02/10/25 06:24: WBC 6.6, RBC 4.07 L, Hgb 9.5 L, Hct 32.1 L, MCV 78.9 L, MCH 23.3L, MCHC 29.6 L, RDW Std Deviation 52.7 H, RDW Coeff of Jose Alberto 18.9 H, Plt Count 347, MPV 10.3, Immature Gran % (Auto) 0.500, Neut % (Auto) 58.0, Lymph % (Auto) 21.2, [place] % (Auto) 15.7 H, Eos % (Auto) 4.0, Baso % (Auto) 0.6, Absolute Neuts (auto) 3.8, Absolute Lymphs (auto) 1.39, Nucleated RBC % 0, Sodium 136, Potassium 3.4, Chloride 99, Carbon Dioxide 23.7, Anion Gap 13, BUN 18, Creatinine 1.35 H, Estim Creat Clear Calc 34.37 L, Est GFR (MDRD) Non-Af 39 L, BUN/Creatinine Ratio 13.0, Glucose 107 H, Calcium 9.2, Phosphorus 3.4 02/10/25 06:40: POC Glucose 116 H 02/10/25 11:41: POC Glucose 164 H Assessment & Plan Assessment/Plan (1) Dysphagia: PLAN: 84-year-old woman who denies any current swallowing difficulties, such as trouble chewing or feeling like food is sticking in his throat. * Reports no pain or discomfort during swallowing. * Denies coughing, choking, or aspiration during meals. * Family reports no observed difficulties during mealtimes. * Patient reports maintaining a normal diet and fluid intake without modification. * Clinical Swallow Evaluation:?Oral motor exam reveals intact range of motion and strength of the tongue, lips, and jaw. Gag reflex is present and intact. No signs of drooling, facial asymmetry, or dysarthria noted. * Swallowing Test Results (e.g., Videofluoroscopic Swallow Study - VFSS): * Oral Phase:?Slight prolongation of oral transit time observed for solids and thin liquids compared to normative data for healthy elderly individuals. * Pharyngeal Phase:?Delayed pharyngeal swallow initiation noted, with occasional shallow laryngeal penetration (material entering the laryngeal vestibule above the vocal folds) observed during bolus presentation. Material is consistently cleared spontaneously without coughing or other overt signs of aspiration. * Esophageal Phase:?Esophageal motility within normal limits, though a slight increase in non-peristaltic contractions is noted. There was some evidence of a possible esophageal stricture observed. Assessment * 84-year-old male with?presbyphagia, or age-related changes in swallowing physiology. * Swallowing test (VFSS) reveals objective findings of delayed pharyngeal swallow without laryngeal penetration, consistent with age-related changes, not necessarily indicative of true dysphagia given the lack of symptomatic difficulty * Absence of reported dysphagia symptoms suggests compensatory strategies are in place or that the observed physiological changes are not yet impacting functional swallowing ability. * Risk factors for progression to dysphagia may be present, including age and potential decline in muscle mass and connective tissue elasticity. Plan * Education:?Discuss normal age-related swallowing changes (presbyphagia) and their potential impact. Emphasize the importance of monitoring for new or worsening swallowing symptoms. * Preventative Strategies: * Dietary:?Encourage a balanced diet and regular hydration. * Swallowing Maneuvers:?Recommend practicing safe swallowing techniques as a precautionary measure (e.g., small bites/sips, slow eating, mindful swallowing). * Oral Hygiene:?Emphasize regular oral care to reduce the risk of aspiration pneumonia. * Follow-up:?In the office for further work up. Charges/Coding Visit Charges Inpatient E&M: 16469 Init Hosp L3 02/10/25 4478 <Electronically signed by Brock Friend DO> Cosigner Signature (if applicable): CC: Dr. Victor M Rocha MD~ Signed [facility] Work Phone: 1(658) 432-271208-01-2025 Consult note [facility] Medical Records Department [address] [place] [address] Consultation - GI 02/10/251818 MR#: [id number] Acct: [id number] Name: GUDELIA GUPTA Rep #:[id number] : 1940 84 From: Brock Leroy DO PCP: Dr. Victor M Rocha MD Status:AD M IN Location: [facility] [id number] HPI Consult Data Date of Consult: 02/10/25 HPI Narrative Reason for Consultation: Abnormal imaging HPI Narrative: GUDELIA GUPTA, is 84-year-old female history of A-fib, sick sinus syndrome status post pacemaker, on chronic anticoagulation in the form of Xarelto, acute hypoxemic respiratory failure, heart failure, CAD status post stent, pulmonary artery hypertension. The patient states she currently does not wear oxygen at home despite her reported history of acute hypoxemic respiratory failure. States she was prescribed oxygen sometime ago however she did not use it so she returned it. Patient notes several months of worsening dyspnea on exertion. She was diagnosed with CHF exacerbation and acute on chronic heart failure. I was asked to see her due to abnormal swallowing test. She underwent speech and s wallow evaluation and during her video swallow study it was noted to have narrowing at the base that esophagus. [facility]LY [facility] Medical History Coronary artery disease Iron deficiency anemia History of non-ST elevation myocardial infarction (NSTEMI) (2013) Longstanding persistent atrial fibrillation Essential (primary) hypertension Anxiety Hypothyroidism Hyperlipidemia Secondary pulmonary arterial hypertension Atherosclerosis of coronary artery of [place] heart without angina pectoris Paroxysmal atrial fibrillation Paroxysmal atrial flutter Sick sinus syndrome Home Medications ?Medication ?Instructions ?Recorded ?Last Taken ?Type buspirone 15 mg tablet 15 mg PO BID ANXIETY 3 Unknown History omeprazole 40 mg capsule,delayed 40 mg PO DAILY ACID R EFLUX 06/02/13 04/11/24 History release nitroglycerin 0.4 mg sublingual 0.4 mg sublingual Q5M PRN CHEST 04/21/15 Unknown History tablet PAIN glimepiride 4 mg tablet 2 mg PO DAILY DIABETES 01/2404/08/24 History amitriptyline 50 mg tablet 50 mg PO QHS DEPRESSION 03/04 Unknown History empagliflozin 10 mg tablet 10 mg PO DAILY DIABETES 03/04 Unknown History (Jardiance) ketotifen fumarate 0.025 % (0.035 1 drp ophthalmic (ey e) BID PRN 02/17/23 Unknown History %) eye drops ([place]) ITCHING/ALLERGIES levothyroxine 100 mcg tablet 100 mcg PO DAILY THYROID 12/14/23 Unknown History (Synthroid) furosemide 40 mg tablet (Lasix) 40 mg PO DAILY water p ill #60 tabs 12/17/23 Unknown Rx rivaroxaban 20 mg tablet (Xarelto) 20 mg PO QPM #90 ta bs 10/06/24 Unknown Rx losartan 100 mg tablet 100 mg PO DAILY blood pressu re #90 11/18/24 Unknown Rx tabs potassium chloride 20 mEq 40 meq (2 x 20 mEq) PO QDAY #90 11/21/24 Unknown Rx tablet,extended release(part/cryst) tabs metoprolol succinate 50 mg 50 mg PO DAILY heart/BP #90 tabs 11/23/24 Unknown Rx tablet,extended release 24 hr simvastatin 20 mg tablet 20 mg PO QHS CHOLESTEROL #9 0 tabs 12/22/24 Unknown Rx amlodipine 10 mg tablet 10 mg PO DAILY 02/08/25 Unkn own History ciprofloxacin HCl 500 mg tablet 500 mg PO BID 02/08/25 Unknown History ferrous sulfate 325 mg (65 mg 65 mg PO DAILY 02/08/25 Unknown History iron) tablet (FeroSul) oxycodone-acetaminophen 5 mg-325 1 tab PO TID PRN PRN pain 02/08/25 Unknown History mg tablet Allergy/AdvReac Type Severity Reaction Status Date / Time poison fany extract (Poison Allergy Rash Verified 02/08/25 16:56 Fany Extract) Sulfa (Sulfonamide Allergy Hives Verified 02/08/25 16:56 Antibiotics) Family History Mother Cancer Father Cancer Brother CAD (coronary artery disease) Sister CAD (coronary artery disease) Surgical History S/P kyphoplasty History of tubal ligation History of appendectomy History of hysterectomy History of left heart catheterization (10/09/13) History of coronary artery stent placement (09/2010) Hx of atrioventricular node ablation (03/31/16) Presence of cardiac pacemaker (04/26/15) Social History household members: spouse Smoking Status: Former smoker how long ago did patient quit smokin's alcohol intake: never substance use type: does not use caffeine: Yes Type: coffee Number of servings: 3 ROS Constitutional Constitutional: Denies fatigue, fever(s), poor appetite, weight gain or weight loss Gastrointestinal Gastrointestinal: Denies belching, bloating, change in bowel habits, change in stool character, chewing difficulty, coffee ground emesis, constipation, cramping, diarrhea, dyspepsia, dysphagia, earlysatiety, excessive flatus, fecalincontinence, heartburn, hematemesis, hematochezia, hemorrhoids, loose stools, melena, nausea, odynophagia, rectal bleeding, tenesmus, vomiting or weight changes Physical Exam Const alert, oriented x3, no apparent distress and healthy appearing General Appearance: cooperative GI normal to inspection, nondistended, normoactive bowel sounds, soft to palpation,non-tender and non-distended Percussion: normal to percussion Rectal Exam: deferred Lab / Micro Data 02/10/25 06:24 02/10/25 06:24 Labs: Laboratory Results - last 24 hr 02/09/25 21:02: POC Glucose 164 H 02/10/25 06:24: WBC 6.6, RBC 4.07 L, Hgb 9.5 L, Hct 32.1 L, MCV 78.9 L, MCH 23.3L, MCHC 29.6 L, RDWStd Deviation 52.7 H, RDW Coeff of Jose Alberto 18.9 H, Plt Count 347, MPV 10.3, Immature Gran % (Auto) 0.500, Neut % (Auto) 58.0, Lymph % (Auto) 21.2, [place] % (Auto) 15.7 H, Eos % (Auto) 4.0, Baso % (Auto) 0.6, Absolute Neuts (auto) 3.8, Absolute Lymphs (auto) 1.39, Nucleated RBC % 0, Sodium 136, Potassium 3.4, Chloride 99, Carbon Dioxide 23.7, Anion Gap 13, BUN 18, Creatinine 1.35 H, Estim Creat Clear Calc 34.37 L, Est GFR (MDRD) Non-Af 39 L, BUN/Creatinine Ratio 13.0, Glucose 107 H, Calcium 9.2, Phosphorus 3.4 02/10/25 06:40: POC Glucose 116 H 02/10/25 11:41: POC Glucose 164 H Assessment & Plan Assessment/Plan (1) Dysphagia: PLAN: 84-year-old woman who denies any current swallowing difficulties, such as trouble chewing or feeling like food is sticking in his throat. * Reports no pain or discomfort during swallowing. * Denies coughing, choking, or aspiration during meals. * Family reports no observed difficulties during mealtimes. * Patient reports maintaining a normal diet and fluid intake without modification. * Clinical Swallow Evaluation:?Oral motor exam reveals intact range of motion and strength of the tongue, lips, and jaw. Gag reflex is present and intact. No signs of drooling, facial asymmetry, or dysarthria noted. * Swallowing Test Results (e.g., Videofluoroscopic Swallow Study - VFSS): * Oral Phase:?Slight prolongation of oral transit time observed for solids and thin liquids compared to normative data for healthy elderly individuals. * Pharyngeal Phase:?Delayed pharyngeal swallow initiation noted, with occasional shallow laryngeal penetration (material entering the laryngeal vestibule above the vocal folds) observed during bolus presentation. Material is consistently cleared spontaneously without coughing or other overt signs of aspiration. * Esophageal Phase:?Esophageal motility within normal limits, though a slight increase in non-peristaltic contractions is noted. There was some evidence of a possible esophageal stricture observed. Assessment * 84-year-old male with?presbyphagia, or age-related changes in swallowing physiology. * Swallowing test (VFSS) reveals objective findings of delayed pharyngeal swallow without laryngealpenetration, consistent with age-related changes, not necessarily indicative of true dysphagia given the lack of symptomatic difficulty * Absence of reported dysphagia symptoms suggests compensatory strategies are in place or that the observed physiological changes are not yet impacting functional swallowing ability. * Risk factors for progression to dysphagia may be present, including age and potential decline in muscle mass and connective tissue elasticity. Plan * Education:?Discuss normal age-related swallowing changes (presbyphagia) and their potential impact. Emphasize the importance of monitoring for new or worsening swallowing symptoms. * Preventative Strategies: * Dietary:?Encourage a balanced diet and regular hydration. * Swallowing Maneuvers:?Recommend practicing safe swallowing techniques as a precautionary measure (e.g., small bites/sips, slow eating, mindful swallowing). * Oral Hygiene:?Emphasize regular oral care to reduce the risk of aspiration pneumonia. * Follow-up:?In the office for further work up. Charges/Coding Visit Charges Inpatient E&M: 69334 Init Hosp L3 02/10/25 1841 Cosigner Signature (if applicable): CC: Dr. Victor M Rocha MD~ Signed [facility]08-01-2025 Discharge summary [facility] Medical Records Department [address] [place] [address] Instructions for Home/Discharge Instructions 02/10/25 1823 MR#: [id number] Acct: [id number] Name: GUDELIA GUPTA Rep #:[id number] : 1940 84 From: Juice galeana DO PCP: Dr. Victor M Rocha MD Status:AD M IN Discharge Instructions DC O2, CPAP, BIPAP needs Home O2 Discharge instructions: No Dressing / Incision Discharge Activity: No Restrictions Follow Up Care Test Results: Test results from this visit will be discussed in further detail at your follow- up appointment, if applicable. Discharge Plan Admission Admit Date/Time: 02/08/25 20:40 Primary Reason for Your Visit: shortness of breath Attending Provider: Joanne Vo Primary Care Provider: Victor M Rocha Consulting Providers: Deandre Xiao Discharge Orders/Prescriptions Prescriptions: Continued glimepiride 4 mg tablet 2 mg [...] 100 mcg tablet 100 mcg PO DAILY furosemide [Lasix] 40 mg tablet 40 mg PO DAILY Qty: 60 0RF oxycodone-acetaminophen 5-325 mg tablet 1 tab PO TID PRN PRN (Reason: pain) amlodipine 10 mg tablet 10 mg PO DAILY ferrous sulfate [FeroSul] 325 mg (65 mg iron) tablet 65 mg PO DAILY ciprofloxacin HCl 500 mg tablet 500 mg PO BID Xarelto 20 mg tablet 20 mg PO QPM Qty: 90 3RF Rx Instructions: must administer with evening meal losartan 100 mg tablet 100 mg PO DAILY Qty: 90 3RF potassium chloride 20 mEq tablet,ER particles/crystals 40 meq PO QDAY Qty: 90 3RF metoprolol succinate 50 mg tablet extended release 24 hr 50 mg PO DAILY Qty: 90 3RF simvastatin 20 mg tablet 20 mg PO QHS Qty: 90 3RF Referrals / Follow Up: Victor M Rocha MD [Primary Care Provider] - Disposition Disposition (needs filled in before D/C Order can be placed): Home, Self Care 02/10/25 1826[facility] [place] HURTADO CC: Dr. Deandre Xiao DO; Dr. Victor M Rocha MD ~ Signed [facility]08-01-2025 Progress note Author Joanne [facility] Note Date/Time February 10, 2025 2:[address] [facility] Medical Records Department [address] [place] [address] Progress Note 02/10/25 1401 MR#: [id number] Acct: [id number] Name: GUDELIA GUPTA Rep #:[id number] : 1940 84 From: Joanne Vo MD PCP: Dr. Victor M Rocha MD Status:AD M IN Location: [place] [address] Subjective Subjective Patient seen and examined. She had no complaints and was hoping to go home. Review of systems otherwise negative. She had modified barium swallow today which showed evidence of dysphagia. GI consult recommended. She is now on roomair. Objective Data Objective Data Vital Signs: Vital Signs Temp Pulse Resp BP Pulse Ox O2 Del Method O2 Flow Rate 97.1 F L 80 16 138/63 H 91 Room Air 2 02/10/25 08:35 02/10/25 09:29 02/10/25 08:35 02/10/25 08:35 02/10/25 09:58 02/10/25 09:58 02/10/25 08:51 Oxygen Flow Rate (L/min) 2 Oxygen Delivery Method Room Air Weight: 182 lb 8.684 oz Body Mass Index (BMI) 27.7 Intake & Output: Intake and Output for Last 24 Hours 02/08/25 02/09/25 02/10/25 23:59 23:59 23:59 Intake Total 500 / 500 600 / 600 Output Total 950 / 950 Balance 500 / 500 -950 / -950 600 / 600 Lab / Micro Data 02/10/25 06:24 02/10/25 06:24 Labs: Laboratory Results - last 24 hr 02/09/25 17:23: POC Glucose 108 H 02/09/25 21:02: POC Glucose 164 H 02/10/25 06:24: WBC 6.6, RBC 4.07 L, Hgb 9.5 L, Hct 32.1 L, MCV 78.9 L, MCH 23.3L, MCHC 29.6 L, RDW Std Deviation 52.7 H, RDW Coeff of Jose Alberto 18.9 H, Plt Count 347, MPV 10.3, Immature Gran % (Auto) 0.500, Neut % (Auto) 58.0, Lymph % (Auto) 21.2, [place] % (Auto) 15.7 H, Eos % (Auto) 4.0, Baso % (Auto) 0.6, Absolute Neuts (auto) 3.8, Absolute Lymphs (auto) 1.39, Nucleated RBC % 0, Sodium 136, Potassium 3.4, Chloride 99, Carbon Dioxide 23.7, Anion Gap 13, BUN 18, Creatinine 1.35 H, Estim Creat Clear Calc 34.37 L, Est GFR (MDRD) Non-Af 39 L, BUN/Creatinine Ratio 13.0, Glucose 107 H, Calcium 9.2, Phosphorus 3.4 02/10/25 06:40: POC Glucose 116 H 02/10/25 11:41: POC Glucose 164 H Micro: Microbiology 02/08/25 17:16 Mucosa - Nose SARS-CoV-2, Influenza & RSV (PCR) - Final Physical Exam Const alert, oriented x3, no apparent distress and average body habitus General Appearance: cooperative HEENT normocephalic, head/scalp atraumatic, hearing grossly normal bilaterally, moist oral mucous membranes and oropharynx normal Eyes PERRL, EOMs intact bilaterally and conjunctivae normal Neck no lymphadenopathy and supple Lymph Lymphatic: no lymphedema noted Resp Resp Narrative: mildly diminished breath sounds bibasally, no wheezes or crackles. On room air. Cardio regular rate, regular rhythm, S1 normal heart sound, S2 normal heart sound and no murmurs GI normal to inspection, nondistended, normoactive bowel sounds, soft to palpation,non-tender and non-distended Extremity normal to inspection, full ROM, normal capillary refill, no clubbing, cyanosis or edema and no calf tenderness General Extremity: no tenderness to palpation of joints or extremities Skin General Skin Exam: no breakdown Neuro oriented x3, CN's II-XII intact bilaterally, moves all extremities and no focal motor deficits Sensorium / Orientation: awake, alert, oriented to person, oriented to place andoriented to time Speech: speech normal Motor Exam: strength 5/5 throughout and general weakness Psych thought process normal, cooperative and affect normal Appearance: appropriate Assessment & Plan Assessment/Plan (1) Generalized weakness: (2) Acute exacerbation of chronic heart failure: PLAN: Plan #Acute exacerbation of HFrEF * Patient currently on 4 L of oxygen which is her baseline. Admitted with complaint of shortness of breath and chest x-ray showed mild pulmonary edema with moderate cardiomegaly and trace left pleural effusion with no consolidations consistent with acute exacerbation of heart failure. * Has known EF of 45% and also known pulmonary arterial hypertension. * Repeat 2D echo shows EF of 65% with severe pulmonary hypertension with pulmonary artery systolic pressure of 76 mmHg. * Been diuresed with IV Lasix. 2D echo ordered and pending. Breathing treatments bronchodilators. Titrate oxygen to maintain saturation above 90%. * Switch to p.o. Lasix. * #Dysphagia * Modified barium swallow showed mild oral dysphagia and pharyngoesophageal dysphagia. GI consulted per speech therapy recommendations. Await GI recommendations. * #Debility and weakness: PT OT on board. Fall precautions. #Paroxysmal A-fib: S/p AV isael ablation. Normal sinus rhythm. On xarelto #History of sick sinus syndrome, s/p pacemaker. Stable #Benign essential hypertension: On amlodipine and metoprolol as well as losartanand furosemide # Hyperlipidemia: On statin #History of anemia: Hemoglobin is 8.6 which is around her baseline. Monitor closely. #CKD III: Cr is 1.29. Will monitor. #Hypothyroidism: On Synthroid #Type 2 diabetes mellitus: On glimepiride and empagliflozin was on hold. Insulin sliding scale. Accu-Cheks ACHS. #History of multiple myeloma: Stable. Follow-up with oncology on outpatient basis #Depression with anxiety: On buspirone and amitriptyline #GERD: On PPI #History of osteoporosis: Stable #Osteoarthritis: On oxycodone acetaminophen DVT prophylaxis: On xarelto Disposition: Discharge home once okay with GI. Charges/Coding Visit Charges Inpatient E&M: 90808 Subs Hosp L2 02/10/25 1416 <Electronically signed by Joanne Vo MD> Joanne Vo MD Cosigner Signature (if applicable): CC: ~ Signed [facility] Work Phone: 1(747) 652-429808-01-2025 Telephone encounter Note* Telephone Encounter - Kandi Woody MA - 02/10/2025 2:55 PM EDT Yovana notified. Kandi Woody MA' [facility]08-01-2025 Miscellaneous Notes* Telephone Encounter - Kandi Woody MA - 02/10/2025 2:55 PM EDT Yovana notified. Kandi Woody MA' * Telephone Encounter - Victor M Rocha MD - 02/10/2025 1:47 PM EDT Yes, I would be agreeable to following pt for Home Health Nursing and PT order Victor M Rocha MD * Telephone Encounter - Shanti Astorga RN - 02/10/2025 10:48 AM EDT Yovana with [facility] calling and asking if PCP would be agreeable to following pt for Home Health Nursing and PT orders? Pt currently at [facility] for CHF Exac and will be discharged to home soon. Please call Yovana back with reply: [phone]. Shanti Astorga RN [facility] Progress note [facility] Medical Records Department [address] [place] [address] Progress Note 02/10/25 1401 MR#: [id number] Acct: [id number] Name: GUDELIA GUPTA Rep #:[id number] : 1940 84 From: Joanne Vo MD PCP: Dr. Victor M Rocha MD Status:AD IN Location: [place] [address] Subjective Subjective Patient seen and examined. She had no complaints and was hoping to go home. Review of systems otherwise negative. She had modified barium swallow today which showed evidence of dysphagia. GI consult recommended. She is now on roomair. Objective Data Objective Data Vital Signs: Vital Signs Temp Pulse Resp BP Pulse Ox O2 Del Method O2 Flow Rate 97.1 F L 80 16 138/63 H 91 Room Air 2 02/10/25 08:35 02/10/25 09:29 02/10/25 08:35 02/10/25 08:35 02/10/25 09:58 02/10/25 09:58 02/10/25 08:51 Oxygen Flow Rate (L/min) 2 Oxygen Delivery Method Room Air Weight: 182 lb 8.684 oz Body Mass Index (BMI) 27.7 Intake & Output: Intake and Output for Last 24 Hours 02/08/25 02/09/25 02/10/25 23:59 23:59 23:59 Intake Total 500 / 500 600 / 600 Output Total 950 / 950 Balance 500 / 500 -950 / -950 600 / 600 Lab / Micro Data 02/10/25 06:24 02/10/25 06:24 Labs: Laboratory Results - last 24 hr 02/09/25 17:23: POC Glucose 108 H 02/09/25 21:02: POC Glucose 164 H 02/10/25 06:24: WBC 6.6, RBC 4.07 L, Hgb 9.5 L, Hct 32.1 L, MCV 78.9 L, MCH 23.3L, MCHC 29.6 L, RDWStd Deviation 52.7 H, RDW Coeff of Jose Alberto 18.9 H, Plt Count 347, MPV 10.3, Immature Gran % (Auto) 0.500, Neut % (Auto) 58.0, Lymph % (Auto) 21.2, [place] % (Auto) 15.7 H, Eos % (Auto) 4.0, Baso % (Auto) 0.6, Absolute Neuts (auto) 3.8, Absolute Lymphs (auto) 1.39, Nucleated RBC % 0, Sodium 136, Potassium 3.4, Chloride 99, Carbon Dioxide 23.7, Anion Gap 13, BUN 18, Creatinine 1.35 H, Estim Creat Clear Calc 34.37 L, Est GFR (MDRD) Non-Af 39 L, BUN/Creatinine Ratio 13.0, Glucose 107 H, Calcium 9.2, Phosphorus 3.4 02/10/25 06:40: POC Glucose 116 H 02/10/25 11:41: POC Glucose 164 H Micro: Microbiology 02/08/25 17:16 Mucosa - Nose SARS-CoV-2, Influenza & RSV (PCR) - Final Physical Exam Const alert, oriented x3, no apparent distress and average body habitus General Appearance: cooperative HEENT normocephalic, head/scalp atraumatic, hearing grossly normal bilaterally, moist oral mucous membranes and oropharynx normal Eyes PERRL, EOMs intact bilaterally and conjunctivae normal Neck no lymphadenopathy and supple Lymph Lymphatic: no lymphedema noted Resp Resp Narrative: mildly diminished breath sounds bibasally, no wheezes or crackles. On room air. Cardio regular rate, regular rhythm, S1 normal heart sound, S2 normal heart sound and no murmurs GI normal to inspection, nondistended, normoactive bowel sounds, soft to palpation,non-tender and non-distended Extremity normal to inspection, full ROM, normal capillary refill, no clubbing, cyanosis or edema and no calftenderness General Extremity: no tenderness to palpation of joints or extremities Skin General Skin Exam: no breakdown Neuro oriented x3, CN's II-XII intact bilaterally, moves all extremities and no focal motor deficits Sensorium / Orientation: awake, alert, oriented to person, oriented to place andoriented to time Speech: speech normal Motor Exam: strength 5/5 throughout and general weakness Psych thought process normal, cooperative and affect normal Appearance: appropriate Assessment & Plan Assessment/Plan (1) Generalized weakness: (2) Acute exacerbation of chronic heart failure: PLAN: Plan #Acute exacerbation of HFrEF * Patient currently on 4 L of oxygen which is her baseline. Admitted with complaint of shortness ofbreath and chest x-ray showed mild pulmonary edema with moderate cardiomegaly and trace left pleural effusion with no consolidations consistent with acute exacerbation of heart failure. * Has known EF of 45% and also known pulmonary arterial hypertension. * Repeat 2D echo shows EF of 65% with severe pulmonary hypertension with pulmonary artery systolic pressure of 76 mmHg. * Been diuresed with IV Lasix. 2D echo ordered and pending. Breathing treatments bronchodilators. Titrate oxygen to maintain saturation above 90%. * Switch to p.o. Lasix. * #Dysphagia * Modified barium swallow showed mild oral dysphagia and pharyngoesophageal dysphagia. GI consultedper speech therapy recommendations. Await GI recommendations. * #Debility and weakness: PT OT on board. Fall precautions. #Paroxysmal A-fib: S/p AV isael ablation. Normal sinus rhythm. On xarelto #History of sick sinus syndrome, s/p pacemaker. Stable #Benign essential hypertension: On amlodipine and metoprolol as well as losartanand furosemide # Hyperlipidemia: On statin #History of anemia: Hemoglobin is 8.6 which is around her baseline. Monitor closely. #CKD III: Cr is 1.29. Will monitor. #Hypothyroidism: On Synthroid #Type 2 diabetes mellitus: On glimepiride and empagliflozin was on hold. Insulin sliding scale. Accu-Cheks ACHS. #History of multiple myeloma: Stable. Follow-up with oncology on outpatient basis #Depression with anxiety: On buspirone and amitriptyline #GERD: On PPI #History of osteoporosis: Stable #Osteoarthritis: On oxycodone acetaminophen DVT prophylaxis: On xarelto Disposition: Discharge home once okay with GI. Charges/Coding Visit Charges Inpatient E&M: 71367 Subs Hosp L2 02/10/25 1412 Joanne Vo MD Cosigner Signature (if applicable): CC: ~ Signed [facility]08-01-2025 Telephone encounter Note* Telephone Encounter - Victor M Rocha MD - 02/10/2025 1:47 PM EDT Yes, I would be agreeable to following pt for Home Health Nursing and PT order Victor M Rocha MD [facility]08-01-2025 Telephone encounter Note* Telephone Encounter - Shanti Astorga RN - 02/10/2025 10:48 AM EDT Yovana with [facility] calling and asking if PCP would be agreeable to following pt for Home Health Nursing and PT orders? Pt currently at [facility] for CHF Exac and will be discharged to home soon. Please call Yovana back with reply: [phone]. Shanti Astorga RN [facility]07-31-2025 Progress note [facility] Note Date/Time February 09, 2025 1:30 pm [facility] Medical Records Department [address] [place] [address] Progress Note 02/09/25 1307 MR#: [id number] Acct: [id number] Name: GUDELIA GUPTA Rep #:[id number] : 1940 84 From: Joanne Vo MD PCP: Dr. Victor M Rocha MD Status:AD M IN Location: [place] [address]- Subjective Subjective Patient seen and examined. She had no active complaints. She says her breathing is improving. She denied any cough, chest pain, palpitations, dizziness, nausea,vomiting or any other symptoms. REview of systems is otherwise negative. Objective Data Objective Data Vital Signs: Vital Signs Temp Pulse Resp BP Pulse Ox O2 Del Method O2 Flow Rate 97.2 F L 80 20 H 132/58 H 94 Nasal Cannula 3 02/09/25 08:17 02/09/25 08:29 02/09/25 08:17 02/09/25 08:17 02/09/25 08:17 02/09/25 08:27 02/09/25 08:27 Oxygen Flow Rate (L/min) 3 Oxygen Delivery Method Nasal Cannula Weight: 189 lb 9.561 oz Body Mass Index (BMI) 28.7 Intake & Output: Intake and Output for Last 24 Hours 02/07/25 02/08/25 02/09/25 23:59 23:59 23:59 Intake Total 500 / 500 Output Total 950 / 950 Balance 500 / 500 -950 / -950 Lab / Micro Data 02/09/25 06:44 02/09/25 06:44 Labs: Laboratory Results - last 24 hr 02/08/25 17:16: WBC 6.7, RBC 3.80 L, Hgb 8.8 L, Hct 30.0 L, MCV 78.9 L, MCH 23.2L, MCHC 29.3 L, RDW Std Deviation 53.7 H, RDW Coeff of Jose Alberto 18.7 H, Plt Count 237, MPV 10.8, Immature Gran % (Auto) 0.700, Neut % (Auto) 63.8, Lymph % (Auto) 18.5 L, [place] % (Auto) 13.6 H, Eos % (Auto) 2.8, Baso % (Auto) 0.6, Absolute Neuts (auto) 4.3, Absolute Lymphs (auto) 1.24, Nucleated RBC % 0.6, Sodium 135, Potassium 4.1, Chloride 102, Carbon Dioxide 18.9 L, Anion Gap 15, BUN 21 H, Creatinine 1.42 H, Estim Creat Clear Calc 33.68 L, Est GFR (MDRD) Non-Af 36 L, BUN/Creatinine Ratio 14.4, Glucose 93, Hemoglobin A1c 6.7 H, Calcium 9.0, Total Bilirubin 0.56, AST 35 H, ALT 10, Alkaline Phosphatase 140 H, Troponin T High Sens 26 H, NT pro BNP II 1833 H, Total Protein 8.5 H, Albumin 3.7, Globulin 4.8 H, Albumin/Globulin Ratio 0.8 L 02/08/25 17:52: Lactic Acid 1.3 02/08/25 19:58: Magnesium 2.2, Troponin T Hi Sens 2 Hr 28 H, TSH 3.080 02/08/25 22:10: Troponin T Hi Sens 4Hr 27 H 02/08/25 23:12: POC Glucose 129 H 02/09/25 06:22: POC Glucose 88 02/09/25 06:44: WBC 8.0, RBC 3.70 L, Hgb 8.6 L, Hct 28.7 L, MCV 77.6 L, MCH 23.2L, MCHC 30.0 L, RDW Std Deviation 52.0 H, RDW Coeff of Jose Alberto 18.6 H, Plt Count 322, MPV 9.5, Immature Gran % (Auto) 0.400, Neut % (Auto) 68.9, Lymph % (Auto) 15.1 L, [place] % (Auto) 12.7 H, Eos % (Auto) 2.3, Baso % (Auto) 0.6, Absolute Neuts (auto) 5.5, Absolute Lymphs (auto) 1.20, Nucleated RBC % 0.3, Sodium 137, Potassium 3.3, Chloride 100, Carbon Dioxide 23.2, Anion Gap 14, BUN 19, Creatinine 1.29 H, Estim Creat Clear Calc 36.61 L, Est GFR (MDRD) Non-Af 41 L, BUN/Creatinine Ratio 14.4, Glucose 81, Calcium 9.2, Phosphorus 3.3, Total Bilirubin 0.52, AST 21, ALT 11, Alkaline Phosphatase 131 H, Total Protein 8.3, Albumin 3.6, Globulin 4.7 H, Albumin/Globulin Ratio 0.8 L, Triglycerides 74, Cholesterol 95, LDL Cholesterol, Calc 47, VLDL Cholesterol 15, HDL Cholesterol 33 L, Cholesterol/HDL Ratio 2.89 02/09/25 12:33: POC Glucose 116 H Micro: Microbiology 02/08/25 17:16 Mucosa - Nose SARS-CoV-2, Influenza & RSV (PCR) - Final Radiography Diagnostic Testing: Radiology Impression Chest X-Ray 02/08/25 17:41 IMPRESSION: Mild pulmonary edema. No focal consolidations. Trace left base effusion. Moderate cardiomegaly. Reading Location: [facility] Physical Exam HEENT normocephalic, head/scalp atraumatic, moist oral mucous membranes and oropharynxnormal Eyes PERRL and EOMs intact bilaterally Neck no lymphadenopathy and supple Lymph Lymphatic: no lymphedema noted Resp Resp Narrative: mildly diminished breath sounds bibasally, no wheezes or crackles. On 3L of oxygen by nasal canula Cardio regular rate, regular rhythm, S1 normal heart sound, S2 normal heart sound and no murmurs GI normal to inspection, nondistended, normoactive bowel sounds, soft to palpation and non-tender Extremity normal capillary refill, no clubbing, cyanosis or edema and no calf tenderness General Extremity: no tenderness to palpation of joints or extremities Skin General Skin Exam: no breakdown Neuro CN's II-XII intact bilaterally and no focal motor deficits Motor Exam: strength 5/5 throughout and general weakness Psych thought process normal and cooperative Appearance: appropriate Assessment & Plan Assessment/Plan (1) Generalized weakness: (2) Acute exacerbation of chronic heart failure: PLAN: Plan #Acute exacerbation of HFrEF * Patient currently on 4 L of oxygen which is her baseline. Admitted with complaint of shortness of breath and chest x-ray showed mild pulmonary edema with moderate cardiomegaly and trace left pleural effusion with no consolidations consistent with acute exacerbation of heart failure. * Has known EF of 45% and also known pulmonary arterial hypertension. * Been diuresed with IV Lasix. 2D echo ordered and pending. Breathing treatments bronchodilators. Titrate oxygen to maintain saturation above 90%. * * #Debility and weakness: PT OT on board. Fall precautions. #Paroxysmal A-fib: S/p AV isael ablation. Normal sinus rhythm. On xarelto #History of sick sinus syndrome, s/p pacemaker. Stable #Benign essential hypertension: On amlodipine and metoprolol as well as losartanand furosemide # Hyperlipidemia: On statin #History of anemia: Hemoglobin is 8.6 which is around her baseline. Monitor closely. #CKD III: Cr is 1.29. Will monitor. #Hypothyroidism: On Synthroid #Type 2 diabetes mellitus: On glimepiride and empagliflozin was on hold. Insulin sliding scale. Accu-Cheks ACHS. #History of multiple myeloma: Stable. Follow-up with oncology on outpatient basis #Depression with anxiety: On buspirone and amitriptyline #GERD: On PPI #History of osteoporosis: Stable #Osteoarthritis: On oxycodone acetaminophen DVT prophylaxis: On xarelto Charges/Coding Visit Charges Inpatient E&M: 37348 Subs Hosp L2 02/09/25 1330 <Electronically signed by Joanne Vo MD> Joanne Vo MD Cosigner Signature (if applicable): CC: ~ Signed [facility] Work Phone: [phone]) [phone] Progress note [facility] Medical Records Department [address] [place] [address] Progress Note 02/09/25 1307 MR#: [id number] Acct: [id number] Name: GUDELIA GUPTA Rep #:[id number] : 1940 84 From: Joanne Vo MD PCP: Dr. Victor M Rocha MD Status:AD M IN Location: [place] [address] Subjective Subjective Patient seen and examined. She had no active complaints. She says her breathing is improving. She denied any cough, chest pain, palpitations, dizziness, nausea,vomiting or any other symptoms. REview of systems is otherwise negative. Objective Data Objective Data Vital Signs: Vital Signs Temp Pulse Resp BP Pulse Ox O2 Del Method O2 Flow Rate 97.2 F L 80 20 H 132/58 H 94 Nasal Cannula 3 02/09/25 08:17 02/09/25 08:29 02/09/25 08:17 02/09/25 08:17 02/09/25 08:17 02/09/25 08:27 02/09/25 08:27 Oxygen Flow Rate (L/min) 3 Oxygen Delivery Method Nasal Cannula Weight: 189 lb 9.561 oz Body Mass Index (BMI) 28.7 Intake & Output: Intake and Output for Last 24 Hours 02/07/25 02/08/25 02/09/25 23:59 23:59 23:59 Intake Total 500 / 500 Output Total 950 / 950 Balance 500 / 500 -950 / -950 Lab / Micro Data 02/09/25 06:44 02/09/25 06:44 Labs: Laboratory Results - last 24 hr 02/08/25 17:16: WBC 6.7, RBC 3.80 L, Hgb 8.8 L, Hct 30.0 L, MCV 78.9 L, MCH 23.2L, MCHC 29.3 L, RDWStd Deviation 53.7 H, RDW Coeff of Jose Alberto 18.7 H, Plt Count 237, MPV 10.8, Immature Gran % (Auto) 0.700, Neut % (Auto) 63.8, Lymph % (Auto) 18.5 L, [place] % (Auto) 13.6 H, Eos % (Auto) 2.8, Baso % (Auto) 0.6, Absolute Neuts (auto) 4.3, Absolute Lymphs (auto) 1.24, Nucleated RBC % 0.6, Sodium 135, Potassium 4.1, Chloride 102, Carbon Dioxide 18.9 L, Anion Gap 15, BUN 21 H, Creatinine 1.42 H, Estim CreatClear Calc 33.68 L, Est GFR (MDRD) Non-Af 36 L, BUN/Creatinine Ratio 14.4, Glucose 93, Hemoglobin A1c 6.7 H, Calcium 9.0, Total Bilirubin 0.56, AST 35 H, ALT 10, Alkaline Phosphatase 140 H, Troponin T High Sens 26 H, NT pro BNP II 1833 H, Total Protein 8.5 H, Albumin 3.7, Globulin 4.8 H, Albumin/Globulin Ratio 0.8 L 02/08/25 17:52: Lactic Acid 1.3 02/08/25 19:58: Magnesium 2.2, Troponin T Hi Sens 2 Hr 28 H, TSH 3.080 02/08/25 22:10: Troponin T Hi Sens 4Hr 27 H 02/08/25 23:12: POC Glucose 129 H 02/09/25 06:22: POC Glucose 88 02/09/25 06:44: WBC 8.0, RBC 3.70 L, Hgb 8.6 L, Hct 28.7 L, MCV 77.6 L, MCH 23.2L, MCHC 30.0 L, RDWStd Deviation 52.0 H, RDW Coeff of Jose Alberto 18.6 H, Plt Count 322, MPV 9.5, Immature Gran % (Auto) 0.400, Neut % (Auto) 68.9, Lymph % (Auto) 15.1 L, [place] % (Auto) 12.7 H, Eos % (Auto) 2.3, Baso % (Auto) 0.6, Absolute Neuts (auto) 5.5, Absolute Lymphs (auto) 1.20, Nucleated RBC % 0.3, Sodium 137, Potassium 3.3, Chloride 100, Carbon Dioxide 23.2, Anion Gap 14, BUN 19, Creatinine 1.29 H, Estim Creat Clear Calc 36.61 L, Est GFR (MDRD) Non-Af 41 L, BUN/Creatinine Ratio 14.4, Glucose 81, Calcium 9.2, Phosphorus 3.3, Total Bilirubin 0.52, AST 21, ALT 11, Alkaline Phosphatase 131 H, Total Protein 8.3, Albumin 3.6, Globulin 4.7 H, Albumin/Globulin Ratio 0.8 L, Triglycerides 74, Cholesterol 95, LDL Cholesterol, Calc 47, VLDL Cholesterol 15, HDL Cholesterol 33 L, Cholesterol/HDL Ratio 2.89 02/09/25 12:33: POC Glucose 116 H Micro: Microbiology 02/08/25 17:16 Mucosa - Nose SARS-CoV-2, Influenza & RSV (PCR) - Final Radiography Diagnostic Testing: Radiology Impression Chest X-Ray 02/08/25 17:41 IMPRESSION: Mild pulmonary edema. No focal consolidations. Trace left base effusion. Moderate cardiomegaly. Reading Location: [facility] Physical Exam HEENT normocephalic, head/scalp atraumatic, moist oral mucous membranes and oropharynxnormal Eyes PERRL and EOMs intact bilaterally Neck no lymphadenopathy and supple Lymph Lymphatic: no lymphedema noted Resp Resp Narrative: mildly diminished breath sounds bibasally, no wheezes or crackles. On 3L of oxygen by nasal canula Cardio regular rate, regular rhythm, S1 normal heart sound, S2 normal heart sound and no murmurs GI normal to inspection, nondistended, normoactive bowel sounds, soft to palpation and non-tender Extremity normal capillary refill, no clubbing, cyanosis or edema and no calf tenderness General Extremity: no tenderness to palpation of joints or extremities Skin General Skin Exam: no breakdown Neuro CN's II-XII intact bilaterally and no focal motor deficits Motor Exam: strength 5/5 throughout and general weakness Psych thought process normal and cooperative Appearance: appropriate Assessment & Plan Assessment/Plan (1) Generalized weakness: (2) Acute exacerbation of chronic heart failure: PLAN: Plan #Acute exacerbation of HFrEF * Patient currently on 4 L of oxygen which is her baseline. Admitted with complaint of shortness ofbreath and chest x-ray showed mild pulmonary edema with moderate cardiomegaly and trace left pleural effusion with no consolidations consistent with acute exacerbation of heart failure. * Has known EF of 45% and also known pulmonary arterial hypertension. * Been diuresed with IV Lasix. 2D echo ordered and pending. Breathing treatments bronchodilators. Titrate oxygen to maintain saturation above 90%. * * #Debility and weakness: PT OT on board. Fall precautions. #Paroxysmal A-fib: S/p AV isael ablation. Normal sinus rhythm. On xarelto #History of sick sinus syndrome, s/p pacemaker. Stable #Benign essential hypertension: On amlodipine and metoprolol as well as losartanand furosemide # Hyperlipidemia: On statin #History of anemia: Hemoglobin is 8.6 which is around her baseline. Monitor closely. #CKD III: Cr is 1.29. Will monitor. #Hypothyroidism: On Synthroid #Type 2 diabetes mellitus: On glimepiride and empagliflozin was on hold. Insulin sliding scale. Accu-Cheks ACHS. #History of multiple myeloma: Stable. Follow-up with oncology on outpatient basis #Depression with anxiety: On buspirone and amitriptyline #GERD: On PPI #History of osteoporosis: Stable #Osteoarthritis: On oxycodone acetaminophen DVT prophylaxis: On xarelto Charges/Coding Visit Charges Inpatient E&M: 38564 Subs Hosp L2 02/09/25 1330 Joanne Vo MD Cosigner Signature (if applicable): CC: ~ Signed [facility]07-31-2025 History and physical note Author Deandre Mtz [facility] Note Date/Time February 09, 2025 6:[address] [facility] Medical Records Department [address] [place] [address] H&P Exam - Hospitalist 02/08/252017 MR#: [id number] Acct: [id number] Name: GUDELIA GUPTA Rep #:[id number] : 1940 84 From: Deandre Hart DO PCP: Dr. Victor M Rocha MD Status:AD M IN Location: [facility] [id number] HPI - General General Date of Admission: 02/08/25 Date of Service: 02/08/25 Chief Complaint: SOB. HPI Narrative GUDELIA GUPTA, is a 84 F with a past medical history of essential hypertension; on amlodipine, losartan, metoprolol and furosemide, hyperlipidemia; on simvastatin, hypothyroidism; on levothyroxine, overweight; with BMI of 29.6 thisadmission, DM-2; of unknown control on glimepiride and empagliflozin, paroxysmalatrial fibrillation; s/p AV isael ablation on apixaban, CAD; s/p RCA and LAD stents (2010) on as needed SL NTG, history of sick sinus syndrome; s/p PPM (2014), chronic mild systolic CHF; with LVEF of ~45% with 2+ mitral valve insufficiency and 1+ aortic valve insufficiency RSVP at 50 mmHg, secondary pulmonary arterial hypertension, history of multiple myeloma; followed by Dr. Baker, chronic iron deficiency anemia; on ferrous sulfate, depression with anxiety; on amitriptyline and buspirone twice daily, GERD; on omeprazole, osteoporosis; with history of compression fracture of thoracic vertebrae and OA;on oxycodone-acetaminophen 3 times daily as needed who presents to [facility] ER complaining of shortness of breath. Ms. Gupta reports she has had ongoing symptoms since last April in 2023 but acutely worsened over the past few days with worsening dyspnea on exertion that progressed to shortness of breath at rest. She also admits to feeling very fatigued and that she cannot do anything physically without becoming completely exhausted in addition to dry cough. She states she was recently diagnosed with a UTI after complaining of dysuria and she was subsequently treated with ciprofloxacin with her first dose taken last night. She states her symptoms aresimilar to her previous AE CHF for which she required supplemental oxygen, whichshe returned at because she was not using it. She additionally states she has been taking her furosemide as prescribed and she denies lower extremity edema. There was no report of associated fever, chills, runny nose, sore throat, ear pain, nausea, vomiting, diarrhea, constipation, abdominal pain, chest pain, palpitations, heart racing, headache or rash. In the ER she was noted to have an elevated NT pro-BNP II of 1,833 pg/mL present on admission with a corresponding CXR that revealed mild pulmonary edema with moderate cardiomegaly and trace Left pleural effusion with no focal consolidations complicated by clinical evidence of Acute Respiratory Insufficiency with patient requiring 2L NC with a mildly elevated troponin T of 26 ng/L present on admission suspected to be due to acute cardiac strain. She was then admitted to the PCU for ongoingcare for stay that is expected to extend beyond 2 midnights. [facility] Medical History Coronary artery disease Iron deficiency anemia History of non-ST elevation myocardial infarction (NSTEMI) (2013) Longstanding persistent atrial fibrillation Essential (primary) hypertension Anxiety Hypothyroidism Hyperlipidemia Secondary pulmonary arterial hypertension Atherosclerosis of coronary artery of [place] heart without angina pectoris Paroxysmal atrial fibrillation Paroxysmal atrial flutter Sick sinus syndrome Home Medications ?Medication ?Instructions ?Recorded ?Last Taken ?Type buspirone 15 mg tablet 15 mg PO BID ANXIETY 3 Unknown History omeprazole 40 mg capsule,delayed 40 mg PO DAILY ACID R EFLUX 06/02/13 04/11/24 History release nitroglycerin 0.4 mg sublingual 0.4 mg sublingual Q5M PRN CHEST 04/21/15 Unknown History tablet PAIN glimepiride 4 mg tablet 2 mg PO DAILY DIABETES 01/2404/08/24 History amitriptyline 50 mg tablet 50 mg PO QHS DEPRESSION 03/04 Unknown History empagliflozin 10 mg tablet 10 mg PO DAILY DIABETES 03/04 Unknown History (Jardiance) ketotifen fumarate 0.025 % (0.035 1 drp ophthalmic (ey e) BID PRN 02/17/23 Unknown History %) eye drops ([place]) ITCHING/ALLERGIES levothyroxine 100 mcg tablet 100 mcg PO DAILY THYROID 12/14/23 Unknown History (Synthroid) furosemide 40 mg tablet (Lasix) 40 mg PO DAILY water p ill #60 tabs 12/17/23 Unknown Rx rivaroxaban 20 mg tablet (Xarelto) 20 mg PO QPM #90 ta bs 10/06/24 Unknown Rx losartan 100 mg tablet 100 mg PO DAILY blood pressu re #90 11/18/24 Unknown Rx tabs potassium chloride 20 mEq 40 meq (2 x 20 mEq) PO QDAY #90 11/21/24 Unknown Rx tablet,extended release(part/cryst) tabs metoprolol succinate 50 mg 50 mg PO DAILY heart/BP #90 tabs 11/23/24 Unknown Rx tablet,extended release 24 hr simvastatin 20 mg tablet 20 mg PO QHS CHOLESTEROL #9 0 tabs 12/22/24 Unknown Rx amlodipine 10 mg tablet 10 mg PO DAILY 02/08/25 Unkn own History ciprofloxacin HCl 500 mg tablet 500 mg PO BID 02/08/25 Unknown History ferrous sulfate 325 mg (65 mg 65 mg PO DAILY 02/08/25 Unknown History iron) tablet (FeroSul) oxycodone-acetaminophen 5 mg-325 1 tab PO TID PRN PRN pain 02/08/25 Unknown History mg tablet Allergy/AdvReac Type Severity Reaction Status Date / Time poison fany extract (Poison Allergy Rash Verified 02/08/25 16:56 Fany Extract) Sulfa (Sulfonamide Allergy Hives Verified 02/08/25 16:56 Antibiotics) Family History Mother Cancer Father Cancer Brother CAD (coronary artery disease) Sister CAD (coronary artery disease) Surgical History S/P kyphoplasty History of tubal ligation History of appendectomy History of hysterectomy History of left heart catheterization (10/09/13) History of coronary artery stent placement (09/2010) Hx of atrioventricular node ablation (03/31/16) Presence of cardiac pacemaker (04/26/15) Social History household members: spouse Smoking Status: Former smoker how long ago did patient quit smokin's alcohol intake: never substance use type: does not use caffeine: Yes Type: coffee Number of servings: 3 ROS ROS Narrative Review of Systems: Constitutional: Patient denies fever or chills. Eyes: Patient denies changes in vision or discharge from eyes. ENT: Patient denies runny nose, sore throat or ear pain. Resp: Patient admits to dyspnea on exertion that progressed to shortness of breath at rest with intermittent dry cough as per HPI. CV: Patient denies chest pain, palpitations or heart racing. GI: Patient denies abdominal pain, nausea, vomiting, diarrhea or constipation. : Patient admits to dysuria with recently diagnosed UTI treated with ciprofloxacin as per HPI. MSK: Patient message generalized weakness and fatigue as per HPI. She denies arthralgias or myalgias. Skin: Patient denies rash, abscess, wounds or jaundice. Psych: Patient denies symptoms of uncontrolled depression or anxiety. Neuro: Patient denies headache, paresthesias or focal neurologic deficits. Allergy: Patient denies lip swelling, tongue swelling or urticaria. Hematology: Patient admits to easy bleeding and easy bruisability on apixaban. Endocrinology: Patient denies polyuria, polydipsia, polyphagia or heat/cold intolerance. 14 point ROS otherwise negative except for positives noted above in HPI. Vital Signs Vital Signs Vital Signs: 02/08/25 16:54 02/08/25 17:12 02/08/25 17:13 Temperature 97.5 F L Temperature Source Oral Pulse Rate 80 Respiratory Rate 22 H Blood Pressure 157/64 H Blood Pressure Mean 95 Pulse Ox 93 84 94 Oxygen Delivery Method Room Air Room Air Nasal Cannula Oxygen Flow Rate (L/min) 2 02/08/25 19:00 02/08/25 19:17 Temperature Temperature Source Pulse Rate 80 Respiratory Rate 24 H 22 H Blood Pressure 156/67 H Blood Pressure Mean 96 Pulse Ox 90 91 Oxygen Delivery Method Room Air Oxygen Flow Rate (L/min) Weight Weight: 194 lb 10.691 oz Body Mass Index (BMI) 29.5 Physical Exam Const alert, oriented x3, no apparent distress and average body habitus General Appearance: cooperative HEENT normocephalic, head/scalp atraumatic, hearing grossly normal bilaterally and moist oral mucous membranes Eyes PERRL, EOMs intact bilaterally and conjunctivae normal Neck no lymphadenopathy and supple Resp Resp Narrative: Mild bibasilar rales. Cardio regular rate and regular rhythm GI normal to inspection, nondistended, normoactive bowel sounds, soft to palpation,non-tender and non-distended Extremity normal to inspection, full ROM and no clubbing, cyanosis or edema Neuro oriented x3, CN's II-XII intact bilaterally, moves all extremities and no focal motor deficits Sensorium / Orientation: awake, alert, oriented to person, oriented to place andoriented to time Speech: speech normal Psych affect normal Results Medical Records Data Attestation: I reviewed the patient's medical records Lab / Micro Data Attestation: I reviewed the patient's lab results. 02/08/25 17:16 02/08/25 17:16 Labs: Laboratory Results - last 24 hr 02/08/25 17:16: WBC 6.7, RBC 3.80 L, Hgb 8.8 L, Hct 30.0 L, MCV 78.9 L, MCH 23.2L, MCHC 29.3 L, RDW Std Deviation 53.7 H, RDW Coeff of Jose Alberto 18.7 H, Plt Count 237, MPV 10.8, Immature Gran % (Auto) 0.700, Neut % (Auto) 63.8, Lymph % (Auto) 18.5 L, [place] % (Auto) 13.6 H, Eos % (Auto) 2.8, Baso % (Auto) 0.6, Absolute Neuts (auto) 4.3, Absolute Lymphs (auto) 1.24, Nucleated RBC % 0.6, Sodium 135, Potassium 4.1, Chloride 102, Carbon Dioxide 18.9 L, Anion Gap 15, BUN 21 H, Creatinine 1.42 H, Estim Creat Clear Calc 33.68 L, Est GFR (MDRD) Non-Af 36 L, BUN/Creatinine Ratio 14.4, Glucose 93, Calcium 9.0, Total Bilirubin 0.56, AST 35H, ALT 10, Alkaline Phosphatase 140 H, Troponin T High Sens 26 H, NT pro BNP II 1833 H, Total Protein 8.5 H, Albumin 3.7, Globulin 4.8 H, Albumin/Globulin Ratio0.8 L 02/08/25 17:52: Lactic Acid 1.3 Micro: Microbiology 02/08/25 17:16 Mucosa - Nose SARS-CoV-2, Influenza & RSV (PCR) - Final Imaging Radiology Impression Chest X-Ray 02/08/25 17:41 IMPRESSION: Mild pulmonary edema. No focal consolidations. Trace left base effusion. Moderate cardiomegaly. Reading Location: [facility] Assessment & Plan Assessment/Plan (1) Acute exacerbation of chronic heart failure: (2) Secondary pulmonary arterial hypertension: (3) Respiratory insufficiency: (4) Elevated troponin: (5) Generalized weakness: (6) Fatigue: QUALIFIERS: Fatigue type: unspecified Qualified Code(s): R53.83 -Other fatigue (7) Paroxysmal atrial fibrillation: (8) Sick sinus syndrome: (9) Presence of cardiac pacemaker: (10) Overweight (BMI 25.0-29.9): PLAN: Plan 1. Elevated NT pro-BNP II of 1,833 pg/mL present on admission with a corresponding CXR that revealed mild pulmonary edema with moderate cardiomegaly and trace Left pleural effusion with no focal consolidations consistent with AE of chronic mild systolic CHF; LVEF ~45% in the setting of known secondary pulmonary arterial hypertension - Admit to PCU. Continue IV furosemide began inER plus supplemental potassium and magnesium. Check echocardiogram to evaluate LVEF. Give acetaminophen as needed for [id number] (level 1-5/10) pain or fever. Give oxycodone/acetaminophen as needed for severe (level 6-10/10) pain. 2. Acute Respiratory Insufficiency with patient requiring 2L NC due to #1 - Wean supplemental oxygen as tolerated. 3. Mildly elevated troponin T of 26 ng/L present on admission suspected to be due to acute cardiac strain attributable to #1 & #2 in the setting of known CAD;s/p RCA and LAD stents (2010) on as needed SL NTG - Serialize troponin. Doubt ACS. Continue as needed SL NTG. 4. Generalized Weakness and Fatigue arising from #1 - #3 - PT/OT and Case Management to consult and treat. 5. Paroxysmal atrial fibrillation; s/p AV isael ablation on apixaban - Stable with patient in NSR at this time. Resume apixaban as before. 6. History of sick sinus syndrome; s/p PPM (2014) - Stable. 7. Overweight; with BMI of 29.6 this admission adding to the burden of disease outlined from #1 - #6 - Weight loss will be recommended. Check TSH. This complicates her case and may hamper recovery. 8. Essential hypertension; on amlodipine, losartan, metoprolol and furosemide -Maintain present therapy. 9. Hyperlipidemia; on simvastatin - Resume statin. 10. Hypothyroidism; on levothyroxine - Continue levothyroxine and check TSH. 11. DM-2; of unknown control on glimepiride and empagliflozin - Hold oral hypoglycemics while inpatient. Give ADA/cardiac diet plus FSBS q. AC/HS with lowest intenisty SSI. 12. History of multiple myeloma; followed by Dr. Baker - Noted. 13. Chronic iron deficiency anemia; on ferrous sulfate - Resume ferrous sulfateas previous. 14. Depression with anxiety; on amitriptyline and buspirone twice daily - Home treatment to continue. 15. GERD; on omeprazole - Maintain PPI. 16. Osteoporosis; with history of compression fracture of thoracic vertebrae - Noted. 17. OA; on oxycodone-acetaminophen 3 times daily - We we will follow pain regimen and scales as outlined in #1. 18. DVT prophylaxis - Patient already on apixaban for #5 will be continued. Total time: Approximately (but not less than) 75 minutes. Charges/Coding Visit Charges Inpatient E&M: 18302 Init Hosp L3 02/09/25 0635 <Electronically signed by Deandre Xiao DO> Cosigner Signature (if applicable): CC: Dr. Deandre Xiao DO; Dr. Victor M Rocha MD~ Signed [facility] Work Phone: [phone] History and physical note [facility] Medical Records Department [address] [place] [address] H&P Exam - Hospitalist 02/08/252017 MR#: [id number] Acct: [id number] Name: GUDELIA GUPTA Rep #:[id number] : 1940 84 From: Deandre Hart DO PCP: Dr. iVctor M Rocha MD Status:AD M IN Location: [facility] [id number] HPI - General General Date of Admission: 02/08/25 Date of Service: 02/08/25 Chief Complaint: SOB. HPI Narrative GUDELIA GUPTA, is a 84 F with a past medical history of essential hypertension; on amlodipine, losartan, metoprolol and furosemide, hyperlipidemia; on simvastatin, hypothyroidism; on levothyroxine, overweight; with BMI of 29.6 thisadmission, DM-2; of unknown control on glimepiride and empagliflozin, paroxysmalatrial fibrillation; s/p AV isael ablation on apixaban, CAD; s/p RCA and LAD stents (2010) on as needed SL NTG, history of sick sinus syndrome; s/p PPM (2014), chronic mild systolic CHF; with LVEF of ~45% with 2+ mitral valve insufficiency and 1+ aortic valve insufficiency RSVP at 50 mmHg, secondary pulmonary arterial hypertension, history of multiple myeloma; followed by Dr. Baker, chronic iron deficiency anemia; on ferrous sulfate, depression with anxiety; on amitriptyline and buspirone twice daily, GERD; on omeprazole, osteoporosis; with history of compression fracture of thoracic vertebrae and OA;on oxycodone-acetaminophen 3 times daily as needed who presents to [facility] ER complaining of shortness of breath. Ms. Gupta reports she has had ongoing symptoms since last April in 2023 but acutely worsened over the past few days with worsening dyspnea on exertion that progressed to shortness of breath at rest. She also admits to feeling very fatigued and that she cannot do anything physically without becoming completely exhausted in addition to dry cough. She states she was recently diagnosed with a UTIafter complaining of dysuria and she was subsequently treated with ciprofloxacin with her first dose taken last night. She states her symptoms aresimilar to her previous AE CHF for which she requiredsupplemental oxygen, whichshe returned at because she was not using it. She additionally states she has been taking her furosemide as prescribed and she denies lower extremity edema. There was no report of associated fever, chills, runny nose, sore throat, ear pain, nausea, vomiting, diarrhea, constipation, abdominal pain, chest pain, palpitations, heart racing, headache or rash. In the ER she was noted to have an elevated NT pro-BNP II of 1,833 pg/mL present on admission with a corresponding CXR that revealed mild pulmonary edema with moderate cardiomegaly and trace Left pleural effusion with no focal consolidations complicated by clinical evidence of Acute Respiratory Insufficiency with patient requiring 2L NC with a mildly elevated troponin T of 26 ng/L present on admission suspected to be due to acute cardiac strain. She was then admitted to the PCU for ongoingcare for stay that is expected to extend beyond 2 midnights. [facility] Medical History Coronary artery disease Iron deficiency anemia History of non-ST elevation myocardial infarction (NSTEMI) (2013) Longstanding persistent atrial fibrillation Essential (primary) hypertension Anxiety Hypothyroidism Hyperlipidemia Secondary pulmonary arterial hypertension Atherosclerosis of coronary artery of [place] heart without angina pectoris Paroxysmal atrial fibrillation Paroxysmal atrial flutter Sick sinus syndrome Home Medications ?Medication ?Instructions ?Recorded ?Last Taken ?Type buspirone 15 mg tablet 15 mg PO BID ANXIETY 3 Unknown History omeprazole 40 mg capsule,delayed 40 mg PO DAILY ACID R EFLUX 06/02/13 04/11/24 History release nitroglycerin 0.4 mg sublingual 0.4 mg sublingual Q5M PRN CHEST 04/21/15 Unknown History tablet PAIN glimepiride 4 mg tablet 2 mg PO DAILY DIABETES 01/2404/08/24 History amitriptyline 50 mg tablet 50 mg PO QHS DEPRESSION 03/04 Unknown History empagliflozin 10 mg tablet 10 mg PO DAILY DIABETES 03/04 Unknown History (Jardiance) ketotifen fumarate 0.025 % (0.035 1 drp ophthalmic (ey e) BID PRN 02/17/23 Unknown History %) eye drops (Alaway) ITCHING/ALLERGIES levothyroxine 100 mcg tablet 100 mcg PO DAILY THYROID 12/14/23 Unknown History (Synthroid) furosemide 40 mg tablet (Lasix) 40 mg PO DAILY water p ill #60 tabs 12/17/23 Unknown Rx rivaroxaban 20 mg tablet (Xarelto) 20 mg PO QPM #90 ta bs 10/06/24 Unknown Rx losartan 100 mg tablet 100 mg PO DAILY blood pressu re #90 11/18/24 Unknown Rx tabs potassium chloride 20 mEq 40 meq (2 x 20 mEq) PO QDAY #90 11/21/24 Unknown Rx tablet,extended release(part/cryst) tabs metoprolol succinate 50 mg 50 mg PO DAILY heart/BP #90 tabs 11/23/24 Unknown Rx tablet,extended release 24 hr simvastatin 20 mg tablet 20 mg PO QHS CHOLESTEROL #9 0 tabs 12/22/24 Unknown Rx amlodipine 10 mg tablet 10 mg PO DAILY 02/08/25 Unkn own History ciprofloxacin HCl 500 mg tablet 500 mg PO BID 02/08/25 Unknown History ferrous sulfate 325 mg (65 mg 65 mg PO DAILY 02/08/25 Unknown History iron) tablet (FeroSul) oxycodone-acetaminophen 5 mg-325 1 tab PO TID PRN PRN pain 02/08/25 Unknown History mg tablet Allergy/AdvReac Type Severity Reaction Status Date / Time poison fany extract (Poison Allergy Rash Verified 02/08/25 16:56 Fany Extract) Sulfa (Sulfonamide Allergy Hives Verified 02/08/25 16:56 Antibiotics) Family History Mother Cancer Father Cancer Brother CAD (coronary artery disease) Sister CAD (coronary artery disease) Surgical History S/P kyphoplasty History of tubal ligation History of appendectomy History of hysterectomy History of left heart catheterization (10/09/13) History of coronary artery stent placement (09/2010) Hx of atrioventricular node ablation (03/31/16) Presence of cardiac pacemaker (04/26/15) Social History household members: spouse Smoking Status: Former smoker how long ago did patient quit smokin's alcohol intake: never substance use type: does not use caffeine: Yes Type: coffee Number of servings: 3 ROS ROS Narrative Review of Systems: Constitutional: Patient denies fever or chills. Eyes: Patient denies changes in vision or discharge from eyes. ENT: Patient denies runny nose, sore throat or ear pain. Resp: Patient admits to dyspnea on exertion that progressed to shortness of breath at rest with intermittent dry cough as per HPI. CV: Patient denies chest pain, palpitations or heart racing. GI: Patient denies abdominal pain, nausea, vomiting, diarrhea or constipation. : Patient admits to dysuria with recently diagnosed UTI treated with ciprofloxacin as per HPI. MSK: Patient message generalized weakness and fatigue as per HPI. She denies arthralgias or myalgias. Skin: Patient denies rash, abscess, wounds or jaundice. Psych: Patient denies symptoms of uncontrolled depression or anxiety. Neuro: Patient denies headache, paresthesias or focal neurologic deficits. Allergy: Patient denies lip swelling, tongue swelling or urticaria. Hematology: Patient admits to easy bleeding and easy bruisability on apixaban. Endocrinology: Patient denies polyuria, polydipsia, polyphagia or heat/cold intolerance. 14 point ROS otherwise negative except for positives noted above in HPI. Vital Signs Vital Signs Vital Signs: 02/08/25 16:54 02/08/25 17:12 02/08/25 17:13 Temperature 97.5 F L Temperature Source Oral Pulse Rate 80 Respiratory Rate 22 H Blood Pressure 157/64 H Blood Pressure Mean 95 Pulse Ox 93 84 94 Oxygen Delivery Method Room Air Room Air Nasal Cannula Oxygen Flow Rate (L/min) 2 02/08/25 19:00 02/08/25 19:17 Temperature Temperature Source Pulse Rate 80 Respiratory Rate 24 H 22 H Blood Pressure 156/67 H Blood Pressure Mean 96 Pulse Ox 90 91 Oxygen Delivery Method Room Air Oxygen Flow Rate (L/min) Weight Weight: 194 lb 10.691 oz Body Mass Index (BMI) 29.5 Physical Exam Const alert, oriented x3, no apparent distress and average body habitus General Appearance: cooperative HEENT normocephalic, head/scalp atraumatic, hearing grossly normal bilaterally and moist oral mucous membranes Eyes PERRL, EOMs intact bilaterally and conjunctivae normal Neck no lymphadenopathy and supple Resp Resp Narrative: Mild bibasilar rales. Cardio regular rate and regular rhythm GI normal to inspection, nondistended, normoactive bowel sounds, soft to palpation,non-tender and non-distended Extremity normal to inspection, full ROM and no clubbing, cyanosis or edema Neuro oriented x3, CN's II-XII intact bilaterally, moves all extremities and no focal motor deficits Sensorium / Orientation: awake, alert, oriented to person, oriented to place andoriented to time Speech: speech normal Psych affect normal Results Medical Records Data Attestation: I reviewed the patient's medical records Lab / Micro Data Attestation: I reviewed the patient's lab results. 02/08/25 17:16 02/08/25 17:16 Labs: Laboratory Results - last 24 hr 02/08/25 17:16: WBC 6.7, RBC 3.80 L, Hgb 8.8 L, Hct 30.0 L, MCV 78.9 L, MCH 23.2L, MCHC 29.3 L, RDWStd Deviation 53.7 H, RDW Coeff of Jose Alberto 18.7 H, Plt Count 237, MPV 10.8, Immature Gran % (Auto) 0.700, Neut % (Auto) 63.8, Lymph % (Auto) 18.5 L, [place] % (Auto) 13.6 H, Eos % (Auto) 2.8, Baso % (Auto) 0.6, Absolute Neuts (auto) 4.3, Absolute Lymphs (auto) 1.24, Nucleated RBC % 0.6, Sodium 135, Potassium 4.1, Chloride 102, Carbon Dioxide 18.9 L, Anion Gap 15, BUN 21 H, Creatinine 1.42 H, Estim CreatClear Calc 33.68 L, Est GFR (MDRD) Non-Af 36 L, BUN/Creatinine Ratio 14.4, Glucose 93, Calcium 9.0,Total Bilirubin 0.56, AST 35H, ALT 10, Alkaline Phosphatase 140 H, Troponin T High Sens 26 H, NT pro BNP II 1833 H, Total Protein 8.5 H, Albumin 3.7, Globulin 4.8 H, Albumin/Globulin Ratio0.8 L 02/08/25 17:52: Lactic Acid 1.3 Micro: Microbiology 02/08/25 17:16 Mucosa - Nose SARS-CoV-2, Influenza & RSV (PCR) - Final Imaging Radiology Impression Chest X-Ray 02/08/25 17:41 IMPRESSION: Mild pulmonary edema. No focal consolidations. Trace left base effusion. Moderate cardiomegaly. Reading Location: [facility] Assessment & Plan Assessment/Plan (1) Acute exacerbation of chronic heart failure: (2) Secondary pulmonary arterial hypertension: (3) Respiratory insufficiency: (4) Elevated troponin: (5) Generalized weakness: (6) Fatigue: QUALIFIERS: Fatigue type: unspecified Qualified Code(s): R53.83 -Other fatigue (7) Paroxysmal atrial fibrillation: (8) Sick sinus syndrome: (9) Presence of cardiac pacemaker: (10) Overweight (BMI 25.0-29.9): PLAN: Plan 1. Elevated NT pro-BNP II of 1,833 pg/mL present on admission with a corresponding CXR that revealed mild pulmonary edema with moderate cardiomegaly and trace Left pleural effusion with no focal consolidations consistent with AE of chronic mild systolic CHF; LVEF ~45% in the setting of known secondary pulmonary arterial hypertension - Admit to PCU. Continue IV furosemide began inER plus supplemental potassium and magnesium. Check echocardiogram to evaluate LVEF. Give acetaminophen as needed [id number] (level 1-5/10) pain or fever. Give oxycodone/acetaminophen as needed for severe (level 6-10/10) pain. 2. Acute Respiratory Insufficiency with patient requiring 2L NC due to #1 - Wean supplemental oxygen as tolerated. 3. Mildly elevated troponin T of 26 ng/L present on admission suspected to be due to acute cardiac strain attributable to #1 & #2 in the setting of known CAD;s/p RCA and LAD stents (2010) on as needed SL NTG - Serialize troponin. Doubt ACS. Continue as needed SL NTG. 4. Generalized Weakness and Fatigue arising from #1 - #3 - PT/OT and Case Management to consult andtreat. 5. Paroxysmal atrial fibrillation; s/p AV isael ablation on apixaban - Stable with patient in NSR at this time. Resume apixaban as before. 6. History of sick sinus syndrome; s/p PPM (2014) - Stable. 7. Overweight; with BMI of 29.6 this admission adding to the burden of disease outlined from #1 - #6 - Weight loss will be recommended. Check TSH. This complicates her case and may hamper recovery. 8. Essential hypertension; on amlodipine, losartan, metoprolol and furosemide - Maintain present therapy. 9. Hyperlipidemia; on simvastatin - Resume statin. 10. Hypothyroidism; on levothyroxine - Continue levothyroxine and check TSH. 11. DM-2; of unknown control on glimepiride and empagliflozin - Hold oral hypoglycemics while inpatient. Give ADA/cardiac diet plus FSBS q. AC/HS with lowest intenisty SSI. 12. History of multiple myeloma; followed by Dr. Baker - Noted. 13. Chronic iron deficiency anemia; on ferrous sulfate - Resume ferrous sulfateas previous. 14. Depression with anxiety; on amitriptyline and buspirone twice daily - Home treatment to continue. 15. GERD; on omeprazole - Maintain PPI. 16. Osteoporosis; with history of compression fracture of thoracic vertebrae - Noted. 17. OA; on oxycodone-acetaminophen 3 times daily - We we will follow pain regimen and scales as outlined in #1. 18. DVT prophylaxis - Patient already on apixaban for #5 will be continued. Total time: Approximately (but not less than) 75 minutes. Charges/Coding Visit Charges Inpatient E&M: 04613 Init Hosp L3 02/09/25 0635 Cosigner Signature (if applicable): CC: Dr. Deandre Xiao DO; Dr. Victor M Rocha MD~ Signed [facility]07-31-2025 Discharge summary Author Bernardo Judd [facility] Note Date/Time February 08, 2025 11:3 5pm [facility] Medical Records Department [address] [place] [address] Emergency Department Summary 02/08/25 MR#: [id number] Acct: [id number] Name: GUDELIA GUPTA Rep #:[id number] : 1940 84 From: Bernardo Ferris PCP: Dr. Victor M Rocha MD Status:AD M IN Location: [place] [address] HPI History of Present Illness Chief Complaint: General Illness [facility] Medical History Coronary artery disease Iron deficiency anemia History of non-ST elevation myocardial infarction (NSTEMI) (2013) Longstanding persistent atrial fibrillation Essential (primary) hypertension Anxiety Hypothyroidism Hyperlipidemia Secondary pulmonary arterial hypertension Atherosclerosis of coronary artery of [place] heart without angina pectoris Paroxysmal atrial fibrillation Paroxysmal atrial flutter Sick sinus syndrome Home Medications ?Medication ?Instructions ?Recorded ?Last Taken ?Type buspirone 15 mg tablet 15 mg PO BID ANXIETY 3 Unknown History omeprazole 40 mg capsule,delayed 40 mg PO DAILY ACID R EFLUX 06/02/13 04/11/24 History release nitroglycerin 0.4 mg sublingual 0.4 mg sublingual Q5M PRN CHEST 04/21/15 Unknown History tablet PAIN glimepiride 4 mg tablet 2 mg PO DAILY DIABETES 01/2404/08/24 History amitriptyline 50 mg tablet 50 mg PO QHS DEPRESSION 03/04 Unknown History empagliflozin 10 mg tablet 10 mg PO DAILY DIABETES 03/04 Unknown History (Jardiance) ketotifen fumarate 0.025 % (0.035 1 drp ophthalmic (ey e) BID PRN 02/17/23 Unknown History %) eye drops (Alaway) ITCHING/ALLERGIES levothyroxine 100 mcg tablet 100 mcg PO DAILY THYROID 12/14/23 Unknown History (Synthroid) furosemide 40 mg tablet (Lasix) 40 mg PO DAILY water p ill #60 tabs 12/17/23 Unknown Rx rivaroxaban 20 mg tablet (Xarelto) 20 mg PO QPM #90 ta bs 10/06/24 Unknown Rx losartan 100 mg tablet 100 mg PO DAILY blood pressu re #90 11/18/24 Unknown Rx tabs potassium chloride 20 mEq 40 meq (2 x 20 mEq) PO QDAY #90 11/21/24 Unknown Rx tablet,extended release(part/cryst) tabs metoprolol succinate 50 mg 50 mg PO DAILY heart/BP #90 tabs 11/23/24 Unknown Rx tablet,extended release 24 hr simvastatin 20 mg tablet 20 mg PO QHS CHOLESTEROL #9 0 tabs 12/22/24 Unknown Rx amlodipine 10 mg tablet 10 mg PO DAILY 02/08/25 Unkn own History ciprofloxacin HCl 500 mg tablet 500 mg PO BID 02/08/25 Unknown History ferrous sulfate 325 mg (65 mg 65 mg PO DAILY 02/08/25 Unknown History iron) tablet (FeroSul) oxycodone-acetaminophen 5 mg-325 1 tab PO TID PRN PRN pain 02/08/25 Unknown History mg tablet Allergy/AdvReac Type Severity Reaction Status Date / Time poison fany extract (Poison Allergy Rash Verified 02/08/25 16:56 Fany Extract) Sulfa (Sulfonamide Allergy Hives Verified 02/08/25 16:56 Antibiotics) Family History Mother Cancer Father Cancer Brother CAD (coronary artery disease) Sister CAD (coronary artery disease) Surgical History S/P kyphoplasty History of tubal ligation History of appendectomy History of hysterectomy History of left heart catheterization (10/09/13) History of coronary artery stent placement (09/2010) Hx of atrioventricular node ablation (03/31/16) Presence of cardiac pacemaker (04/26/15) Social History household members: spouse Smoking Status: Former smoker how long ago did patient quit smokin's alcohol intake: never substance use type: does not use caffeine: Yes Type: coffee Number of servings: 3 EXAM Physical Exam Const Vital Signs: 02/08/25 16:54 02/08/25 17:12 02/08/25 17:13 Temperature 97.5 F L Temperature Source Oral Pulse Rate 80 Respiratory Rate 22 H Blood Pressure 157/64 H Blood Pressure Mean 95 Pulse Ox 93 84 94 Oxygen Delivery Method Room Air Room Air Nasal Cannula Oxygen Flow Rate (L/min) 2 02/08/25 19:00 02/08/25 19:17 Temperature Temperature Source Pulse Rate 80 Respiratory Rate 24 H 22 H Blood Pressure 156/67 H Blood Pressure Mean 96 Pulse Ox 90 91 Oxygen Delivery Method Room Air Oxygen Flow Rate (L/min) [place] Narrative Medical decision making narrative: HISTORY OF PRESENT ILLNESS: Chief complaint: Fatigue, dysuria, shortness of breath 84-year-old female history of A-fib, sick sinus syndrome status post pacemaker, on chronic anticoagulation in the form of Xarelto, acute hypoxemic respiratory failure, heart failure, CAD status post stent, pulmonary artery hypertension. The patient states she currently does not wear oxygen at home despite her reported history of acute hypoxemic respiratory failure. States she was prescribed oxygen sometime ago however she did not use it so she returned it. Patient notes several months of worsening dyspnea on exertion. She does note a dry cough. Denies fever. Denies chest pain. She notes more recently she has been feeling very fatigued. States she feels like she cannot do anything physically. She states she was recently diagnosed with a UTI. Notes she started her first dose of ciprofloxacin last night. Denies vomiting or diarrhea. Denies any bleeding diathesis. REVIEW OF SYSTEMS: Pertinent positives: Shortness of breath, dysuria, fatigue Pertinent negatives: Chest pain, syncope PHYSICAL EXAM: Nursing triage notes reviewed, Vital signs reviewed Constitutional: please see mdm HENT: MMM Eyes: Pupils equal round and reactive to light, Extraocular muscles intact Neck: No stridor, no JVD, full neck ROM Lungs: Clear to auscultation, No wheezing or rales. No increased work of breathing, no conversational dyspnea, no accessory muscle use, no nasal flaring. No respiratory distress noted Heart: Regular rate and rhythm, No murmurs, No rubs and No gallops, 2+ distal pulses (radial, femoral, posterior tibial) in all extremities Abdomen: Soft, there is no tenderness, rigidity, rebound or guarding, no obviousperitoneal signs, no palpable pulsatile abdominal masses, no auscultated abdominal bruit : No CVAT Extremities: No edema Neuro: No new focal neurological deficits, cranial nerves II through XII intact,5/5 strength in all present extremities. Intact sensation to light touch in all present extremities, 2+ reflexes bilateral patella tendons. Skin: No rash or lesions noted MEDICAL DECISION MAKING: Chief Complaint: please see HPI External records reviewed: Reviewed laboratory studies. BNP from 04/05/2024 was 433.7 Reviewed EKG from March 2024 Factors affecting care: As per HPI Social determinants of health: Elderly History obtained from others: Family Consults: Internal medicine (Dr. Elizabeth ) [facility] Narrative: The patient was initially tachypneic saturating 84% on room air requiring a new 2 L oxygen requirement. She had some slight increased work of breathing, conversational dyspnea but was not in severe respiratory distress and did not require noninvasive or invasive ventilatory support initially I considered the following differential diagnosis: CHF, ACS, arrhythmia, anemia,electrolyte disturbance, UTI, I obtained a broad lab and imaging workup to further determine if the patient was suffering from a life-threatening etiology. I obtained a broad lab and imaging workup to further elucidate etiology of the patient's complaint. Given hypoxia and shortness of breath I did consider pulm embolism as a potential etiology of the patient has a low risk Wells score and is on anticoagulation currently has not missed any doses. Therefore over low suspicion for PE. ALL IMAGES (IF OBTAINED) HAVE BEEN PERSONALLY REVIEWED AND INTERPRETED BY MYSELF. EKG with ventricular paced rhythm, left axis deviation, prolonged QTc interval at 552, no obvious new ischemic changes, similar morphology to EKG reviewed [id number] CBC with no leukocytosis, noted anemia which is worse than prior however similarto baseline studies BMP without significant [place] normalities, noted metabolic acidosis with a bicarb of 18.9, no sign of endorgan hypoperfusion with normal anion gap, noted baseline CKD CMP shows slight elevation in liver enzymes consistent with prior study Initial troponin negative BNP elevated consistent with volume overload and heart failure The patient's chest x-ray was read and reviewed personally by myself shows cardiomegaly and pulmonary venous congestion consistent with likely CHF The synthesis of the patient's history, physical exam, labs images suggest acuteheart failure exacerbation. The patient and/or family, caregivers express understanding. The patient and/orfamily, caregivers agrees with the plan. Shared decision making: I will have a discussion with the patient and or visitors regarding risk/benefits of further testing or admission. They will be made aware of of the risk/benefits inherent in this decision they will be given the opportunity to voice understanding. Total critical care time today provided was at least 0 minutes. This excludes separately billable procedures. Critical care time (if documented) is secondary to the patient having high probability of clinically significant/life threatening deterioration in the patient's condition which required my urgent intervention. Impression: 1. Hypoxia 2. CHF exacerbation 3. History of CAD Dispo: Admit to PCU This note was generated with Whiteyboard dictation software. It may contain incorrectwords, spelling, and punctuation that were not noted in review of the chart prior to signing. Lab Data Labs: Laboratory Results - last 24 hr 02/08/25 02/08/25 02/08/25 17:16 17:52 19:58 WBC 6.7 RBC 3.80 L Hgb 8.8 L Hct 30.0 L MCV 78.9 L MCH 23.2 L MCHC 29.3 L RDW Std Deviation 53.7 H RDW Coeff of Jose Alberto 18.7 H Plt Count 237 MPV 10.8 Immature Gran % (Auto) 0.700 Neut % (Auto) 63.8 Lymph % (Auto) 18.5 L [place] % (Auto) 13.6 H Eos % (Auto) 2.8 Baso % (Auto) 0.6 Absolute Neuts (auto) 4.3 Absolute Lymphs (auto) 1.24 Nucleated RBC % 0.6 Sodium 135 Potassium 4.1 Chloride 102 Carbon Dioxide 18.9 L Anion Gap 15 BUN 21 H Creatinine 1.42 H Estim Creat Clear Calc 33.68 L Est GFR (MDRD) Non-Af 36 L BUN/Creatinine Ratio 14.4 Glucose 93 Hemoglobin A1c 6.7 H Lactic Acid 1.3 Calcium 9.0 Magnesium 2.2 Total Bilirubin 0.56 AST 35 H ALT 10 Alkaline Phosphatase 140 H Troponin T High Sens 26 H Troponin T Hi Sens 2 Hr 28 H NT pro BNP II 1833 H Total Protein 8.5 H Albumin 3.7 Globulin 4.8 H Albumin/Globulin Ratio 0.8 L TSH 3.080 Radiography Diagnostic Testing: Clinical Impression(s) from Imaging Studies Chest X-Ray 02/08/25 17:41 IMPRESSION: Mild pulmonary edema. No focal consolidations. Trace left base effusion. Moderate cardiomegaly. Reading Location: [facility] Discharge Plan Disposition Disposition: Acute Care Hospital [facility] Discharge Date/Time: 02/08/25 21:56 What to do if you have Problems For any increased pain, shortness of breath, bleeding, nausea or vomiting, chestpain, or any unexpected problems, contact your Primary Care Provider. Call [facility] ([phone]) or report to the closest Emergency Room. Call 911 if necessary. 02/08/25 7633 <Electronically signed by Bernardo Judd DO> Cosigner Signature (if applicable): CC: Dr. Victor M Rocha MD ~ Signed [facility] Work Phone: 1(181) 843-114007-30-2025 Discharge summary [facility] Medical Records Department [address] [place] [address] Emergency Department Summary 02/08/25 MR#: [id number] Acct: [id number] Name: GUDELIA GPUTA Rep #:[id number] : 1940 84 From: Bernardo Ferris PCP: Dr. Victor M Rocha MD Status:AD M IN Location: [address] History of Present Illness Chief Complaint: General Illness [facility] Medical History Coronary artery disease Iron deficiency anemia History of non-ST elevation myocardial infarction (NSTEMI) (2013) Longstanding persistent atrial fibrillation Essential (primary) hypertension Anxiety Hypothyroidism Hyperlipidemia Secondary pulmonary arterial hypertension Atherosclerosis of coronary artery of [place] heart without angina pectoris Paroxysmal atrial fibrillation Paroxysmal atrial flutter Sick sinus syndrome Home Medications ?Medication ?Instructions ?Recorded ?Last Taken ?Type buspirone 15 mg tablet 15 mg PO BID ANXIETY 3 Unknown History omeprazole 40 mg capsule,delayed 40 mg PO DAILY ACID R EFLUX 06/02/13 04/11/24 History release nitroglycerin 0.4 mg sublingual 0.4 mg sublingual Q5M PRN CHEST 04/21/15 Unknown History tablet PAIN glimepiride 4 mg tablet 2 mg PO DAILY DIABETES 01/2404/08/24 History amitriptyline 50 mg tablet 50 mg PO QHS DEPRESSION 03/04 Unknown History empagliflozin 10 mg tablet 10 mg PO DAILY DIABETES 03/04 Unknown History (Jardiance) ketotifen fumarate 0.025 % (0.035 1 drp ophthalmic (ey e) BID PRN 08/08/23 Unknown History %) eye drops (Alaway) ITCHING/ALLERGIES levothyroxine 100 mcg tablet 100 mcg PO DAILY THYROID 12/14/23 Unknown History (Synthroid) furosemide 40 mg tablet (Lasix) 40 mg PO DAILY water p ill #60 tabs 12/17/23 Unknown Rx rivaroxaban 20 mg tablet (Xarelto) 20 mg PO QPM #90 ta bs 10/06/24 Unknown Rx losartan 100 mg tablet 100 mg PO DAILY blood pressu re #90 11/18/24 Unknown Rx tabs potassium chloride 20 mEq 40 meq (2 x 20 mEq) PO QDAY #90 11/21/24 Unknown Rx tablet,extended release(part/cryst) tabs metoprolol succinate 50 mg 50 mg PO DAILY heart/BP #90 tabs 11/23/24 Unknown Rx tablet,extended release 24 hr simvastatin 20 mg tablet 20 mg PO QHS CHOLESTEROL #9 0 tabs 12/22/24 Unknown Rx amlodipine 10 mg tablet 10 mg PO DAILY 02/08/25 Unkn own History ciprofloxacin HCl 500 mg tablet 500 mg PO BID 02/08/25 Unknown History ferrous sulfate 325 mg (65 mg 65 mg PO DAILY 02/08/25 Unknown History iron) tablet (FeroSul) oxycodone-acetaminophen 5 mg-325 1 tab PO TID PRN PRN pain 02/08/25 Unknown History mg tablet Allergy/AdvReac Type Severity Reaction Status Date / Time poison fany extract (Poison Allergy Rash Verified 02/08/25 16:56 Fany Extract) Sulfa (Sulfonamide Allergy Hives Verified 02/08/25 16:56 Antibiotics) Family History Mother Cancer Father Cancer Brother CAD (coronary artery disease) Sister CAD (coronary artery disease) Surgical History S/P kyphoplasty History of tubal ligation History of appendectomy History of hysterectomy History of left heart catheterization (10/09/13) History of coronary artery stent placement (09/2010) Hx of atrioventricular node ablation (03/31/16) Presence of cardiac pacemaker (04/26/15) Social History household members: spouse Smoking Status: Former smoker how long ago did patient quit smokin's alcohol intake: never substance use type: does not use caffeine: Yes Type: coffee Number of servings: 3 EXAM Physical Exam Const Vital Signs: 02/08/25 16:54 02/08/25 17:12 02/08/25 17:13 Temperature 97.5 F L Temperature Source Oral Pulse Rate 80 Respiratory Rate 22 H Blood Pressure 157/64 H Blood Pressure Mean 95 Pulse Ox 93 84 94 Oxygen Delivery Method Room Air Room Air Nasal Cannula Oxygen Flow Rate (L/min) 2 02/08/25 19:00 02/08/25 19:17 Temperature Temperature Source Pulse Rate 80 Respiratory Rate 24 H 22 H Blood Pressure 156/67 H Blood Pressure Mean 96 Pulse Ox 90 91 Oxygen Delivery Method Room Air Oxygen Flow Rate (L/min) MDM MDM MDM Narrative Medical decision making narrative: HISTORY OF PRESENT ILLNESS: Chief complaint: Fatigue, dysuria, shortness of breath 84-year-old female history of A-fib, sick sinus syndrome status post pacemaker, on chronic anticoagulation in the form of Xarelto, acute hypoxemic respiratory failure, heart failure, CAD status post stent, pulmonary artery hypertension. The patient states she currently does not wear oxygen at home despite her reported history of acute hypoxemic respiratory failure. States she was prescribed oxygen sometime ago however she did not use it so she returned it. Patient notes several months of worsening dyspnea on exertion. She does note a dry cough. Denies fever. Denies chest pain. She notes more recently she has been feeling very fatigued. States she feels like she cannot do anything physically. She states she was recently diagnosed with a UTI. Notes she started her first dose of ciprofloxacin last night. Denies vomiting or diarrhea. Denies any bleeding diathesis. REVIEW OF SYSTEMS: Pertinent positives: Shortness of breath, dysuria, fatigue Pertinent negatives: Chest pain, syncope PHYSICAL EXAM: Nursing triage notes reviewed, Vital signs reviewed Constitutional: please see mdm HENT: MMM Eyes: Pupils equal round and reactive to light, Extraocular muscles intact Neck: No stridor, no JVD, full neck ROM Lungs: Clear to auscultation, No wheezing or rales. No increased work of breathing, no conversational dyspnea, no accessory muscle use, no nasal flaring. No respiratory distress noted Heart: Regular rate and rhythm, No murmurs, No rubs and No gallops, 2+ distal pulses (radial, femoral, posterior tibial) in all extremities Abdomen: Soft, there is no tenderness, rigidity, rebound or guarding, no obviousperitoneal signs, no palpable pulsatile abdominal masses, no auscultated abdominal bruit : No CVAT Extremities: No edema Neuro: No new focal neurological deficits, cranial nerves II through XII intact,5/5 strength in allpresent extremities. Intact sensation to light touch in all present extremities, 2+ reflexes bilateral patella tendons. Skin: No rash or lesions noted MEDICAL DECISION MAKING: Chief Complaint: please see HPI External records reviewed: Reviewed laboratory studies. BNP from 04/05/2024 was 433.7 Reviewed EKG from March 2024 Factors affecting care: As per [facility] Social determinants of health: Elderly History obtained from others: Family Consults: Internal medicine (Dr. Elizabeth ) [facility] Narrative: The patient was initially tachypneic saturating 84% on room air requiring a new 2 L oxygen requirement. She had some slight increased work of breathing, conversational dyspnea but was not in severe respiratory distress and did not require noninvasive or invasive ventilatory support initially I considered the following differential diagnosis: CHF, ACS, arrhythmia, anemia,electrolyte disturbance, UTI, I obtained a broad lab and imaging workup to further determine if the patient was suffering from a life-threatening etiology. I obtained a broad lab and imaging workup to further elucidate etiology of the patient's complaint. Given hypoxia and shortness of breath I did consider pulm embolism as a potential etiology of the patient has a low risk Wells score and is on anticoagulation currently has not missed any doses. Therefore over low suspicion for PE. ALL IMAGES (IF OBTAINED) HAVE BEEN PERSONALLY REVIEWED AND INTERPRETED BY MYSELF. EKG with ventricular paced rhythm, left axis deviation, prolonged QTc interval at 552, no obvious new ischemic changes, similar morphology to EKG reviewed [id number] CBC with no leukocytosis, noted anemia which is worse than prior however similarto baseline studies BMP without significant Coreen normalities, noted metabolic acidosis with a bicarb of 18.9, no sign of endorgan hypoperfusion with normal anion gap, noted baseline CKD CMP shows slight elevation in liver enzymes consistent with prior study Initial troponin negative BNP elevated consistent with volume overload and heart failure The patient's chest x-ray was read and reviewed personally by myself shows cardiomegaly and pulmonary venous congestion consistent with likely CHF The synthesis of the patient's history, physical exam, labs images suggest acuteheart failure exacerbation. The patient and/or family, caregivers express understanding. The patient and/orfamily, caregivers agrees with the plan. Shared decision making: I will have a discussion with the patient and or visitors regarding risk/benefits of further testing or admission. They will be made aware of of the risk/benefits inherent in this decision they will be given the opportunity to voice understanding. Total critical care time today provided was at least 0 minutes. This excludes separately billable procedures. Critical care time (if documented) is secondary to the patient having high probability ofclinically significant/life threatening deterioration in the patient's condition which required my urgent intervention. Impression: 1. Hypoxia 2. CHF exacerbation 3. History of CAD Dispo: Admit to PCU This note was generated with Whiteyboard dictation software. It may contain incorrectwords, spelling, and punctuation that were not noted in review of the chart prior to signing. Lab Data Labs: Laboratory Results - last 24 hr 02/08/25 02/08/25 02/08/25 17:16 17:52 19:58 WBC 6.7 RBC 3.80 L Hgb 8.8 L Hct 30.0 L MCV 78.9 L MCH 23.2 L MCHC 29.3 L RDW Std Deviation 53.7 H RDW Coeff of Jose Alberto 18.7 H Plt Count 237 MPV 10.8 Immature Gran % (Auto) 0.700 Neut % (Auto) 63.8 Lymph % (Auto) 18.5 L [place] % (Auto) 13.6 H Eos % (Auto) 2.8 Baso % (Auto) 0.6 Absolute Neuts (auto) 4.3 Absolute Lymphs (auto) 1.24 Nucleated RBC % 0.6 Sodium 135 Potassium 4.1 Chloride 102 Carbon Dioxide 18.9 L Anion Gap 15 BUN 21 H Creatinine 1.42 H Estim Creat Clear Calc 33.68 L Est GFR (MDRD) Non-Af 36 L BUN/Creatinine Ratio 14.4 Glucose 93 Hemoglobin A1c 6.7 H Lactic Acid 1.3 Calcium 9.0 Magnesium 2.2 Total Bilirubin 0.56 AST 35 H ALT 10 Alkaline Phosphatase 140 H Troponin T High Sens 26 H Troponin T Hi Sens 2 Hr 28 H NT pro BNP II 1833 H Total Protein 8.5 H Albumin 3.7 Globulin 4.8 H Albumin/Globulin Ratio 0.8 L TSH 3.080 Radiography Diagnostic Testing: Clinical Impression(s) from Imaging Studies Chest X-Ray 02/08/25 17:41 IMPRESSION: Mild pulmonary edema. No focal consolidations. Trace left base effusion. Moderate cardiomegaly. Reading Location: [facility] Discharge Plan Disposition Disposition: Acute Care Hospital [facility] Discharge Date/Time: 02/08/25 21:56 What to do if you have Problems For any increased pain, shortness of breath, bleeding, nausea or vomiting, chestpain, or any unexpected problems, contact your Primary Care Provider. Call [facility] ([phone]) or report tothe closest Emergency Room. Call 911 if necessary. 02/08/252334 Cosigner Signature (if applicable): CC: Dr. Victor M Rocha MD ~ Signed [facility]07-30-2025 Evaluation note* Diagnosis Onset Date Resolution Status Admit Date Dysphagia acute February 08 8:40pm Presence of cardiac pacemaker April 26, 2015 chronic February 08 8:40pm Acute exacerbation of chronic heart failure resolved February 08, 2025 8:40pm Elevated troponin resolved February 082024 8:40pm Fatigue resolved February 08 8:40pm Generalized weakness resolved February 08, 2025 8:40pm Respiratory insufficiency resolved February 08, 2025 8:40pm Overweight (BMI 25.0-29.9) inactive February 08, 2025 8:40pm Paroxysmal atrial fibrillation inactive February 08, 2025 8:40pm Secondary pulmonary arterial hypertension inactive February 08, 2025 8:40pm Sick sinus syndrome inactive February 08, 2025 8:40pm Essential (primary) hypertension chronic February 21 10:05am History of coronary artery stent placement September, chronic February 21 10:05am Hyperlipidemia chronic February 10:05am Longstanding persistent atrial fibrillation chronic February 21, 2025 10:05am Presence of cardiac pacemaker April 26, 2015 chronic February 21, 2025 10:05am [facility] Work Phone: 1(707) 193-255107-30-2025 Evaluation note* Diagnosis Onset Date Resolution Status Admit Date Dysphagia acute February 08 8:40pm Presence of cardiac pacemaker April 26, 2015 chronic February 08 8:40pm Acute exacerbation of chronic heart failure resolved February 08, 2025 8:40pm Elevated troponin resolved February 082024 8:40pm Fatigue resolved February 08 8:40pm Generalized weakness resolved February 08, 2025 8:40pm Respiratory insufficiency resolved February 08, 2025 8:40pm Overweight (BMI 25.0-29.9) inactive February 08, 2025 8:40pm Paroxysmal atrial fibrillation inactive February 08, 2025 8:40pm Secondary pulmonary arterial hypertension inactive February 08, 2025 8:40pm Sick sinus syndrome inactive February 08, 2025 8:40pm Essential (primary) hypertension chronic February 21 10:05am History of coronary artery stent placement September, chronic February 21 10:05am Hyperlipidemia chronic February 10:05am Longstanding persistent atrial fibrillation chronic February 21, 2025 10:05am Presence of cardiac pacemaker April 26, 2015 chronic February 21, 2025 10:05am Closed left hip fracture acute April 03, 2025 5:13pm Heart failure acute March 142024 5:13pm S/P total hip arthroplasty acute April 03, 2025 5:13pm Essential (primary) hypertension chronic April 03, 2025 5:13pm History of coronary artery stent placement September, chronic April 03, 2025 5:13pm Hyperlipidemia chronic April 03, 2025 5:13pm [facility] Work Phone: 1(298) 365-229307-30-2025 Radiology Diagnostic study note [facility] Imaging Services [address] [place], [place] [address] Chest 1 View (Portable) MR#: [id number] Acct: [id number] Name: GUDELIA GUPTA Rep #: [id number] : 1940 F 84 From: Gwendolyn Montoya MD PCP: Dr. Victor M Rocha MD Status: RE G ER Study:Chest 1 View (Portable) Date of Exam: 02/08/25 Exam# [id number] Ordering Dr: Casandra Judd DO PROCEDURE: CHEST 1 VIEW (PORTABLE) 02/08/2025 REASON FOR EXAM: SHORTNESS OF BREATH TECHNIQUE: Frontal view of the chest. COMPARISON: 04/05/24 FINDINGS: Mild pulmonary edema. No focal consolidations. Trace left base effusion. No pneumothorax. Moderate cardiomegaly. Calcified aortic arch. No acute fractures. Left chest pacer. RAD/Chest 1 View (Portable) IMPRESSION: Mild pulmonary edema. No focal consolidations. Trace left base effusion. Moderate cardiomegaly. Reading Location: [facility] CC: Dr. Victor M Rocha MD; Dr. Bernardo Judd DO ~ Job Checker: Signed [facility]07-28-2025 Telephone encounter Note* Telephone Encounter - Moises Torres RN - 02/06/2025 3:17 PM EDT Pt called and is notified of providers results. Pt voices understanding. Moises Torres RN [facility]07-28-2025 Miscellaneous Notes* Telephone Encounter - Moises Torres RN - 02/06/2025 3:17 PM EDT Pt called and is notified of providers results. Pt voices understanding. Moises Torres RN * Telephone Encounter - Kandi Woody MA - 02/06/2025 1:13 PM EDT Tried to reach pt, VM full and unable to leave message or call back number. Kandi Woody MA * Telephone Encounter - Carlos House APRN.CNP - 02/06/2025 1:10 PM EDT Please let the patient know that her chest xray showed no pneumonia or fluid around heart or lungs. Carlos House APRN.CNP [facility] Telephone encounter Note * Telephone Encounter - Kandi Woody MA - 02/06/2025 1:13 PM EDT Tried to reach pt, VM full and unable to leave message or call back number. Kandi Woody MA [facility]07-28-2025 Telephone encounter Note* Telephone Encounter - Carols House APRN.CNP - 02/06/2025 1:10 PM EDT Please let the patient know that her chest xray showed no pneumonia or fluid around heart or lungs. Carlos House APRN.CNP [facility]07-28-2025 History of Present illness Narrative* Andree Clarke RT(R) - 02/06/2025 12:30 PM EDT Radiology Service Progress Note PATIENT NAME: Gudelia Gupta DATE OF SERVICE: February 06, 2025 [...] falls during this visit? Instructed Patient to Callfor Help if Needed, Offered Assistance with Transfers/Clothing, Instructed Patient to Remain Seated(Not on Exam Table) Until Exam, and Increased Observations by Caregivers PATIENT GENDER DATA: Assigned female at . status: : No status:NO. PATIENT RELEVANT IMPLANT DATA REVIEWED: Yes PATIENT PRESENTS WITH AN IMPLANTABLE OR ATTACHED HOG SAWYER: No RADIOLOGY DEPARTMENT: General X-ray: Exam(s) Completed: Chest X-Ray PERIPHERAL IV DATA: Not applicable SIGNED BY: RT Odilon(Tessie) February 06, 2025 12:43 PM documented in [facility]Do[facility]-2025 NoteHNO ID: [id number] Author: ANDREE CLARKE RT(R) Service: ? Author Type: Mental Health Worker Type: Progress Notes Filed: 02/06/2025 12:55 Note Text: Radiology Service Progress Note PATIENT NAME: Gudelia Gupta DATE OF SERVICE: February 06, 2025 [...] PATIENT PRESENTS WITH AN IMPLANTABLE OR ATTACHED HOG SAWYER: No RADIOLOGY DEPARTMENT: General X-ray: Exam(s) Completed: Chest X-Ray PERIPHERAL IV DATA: Not applicable SIGNED BY: RT Odilon(R) February 06, 2025 12:43 [facility]07-28-2025 Instructions* Patient Instructions* Carlos House APRN.DICK - 02/06/2025 12:01 PM EDT We discussed your [...] in the lungs. - Please call your fermentation scientist's office today to inform them of your [...] [facility] - Untreated urinary tract infections can lead to serious complications, including sepsis. If you develop fever, chills, or worsening symptoms, go to the emergency room immediately. We discussed your weight: - Your weight has increased slightly since July (from 189 lbs to 194 lbs). This could be relatedto fluid retention. - Continue wearing your compression stockings daily to help manage any leg swelling. Next steps: - Complete the blood work, chest X-ray, and urine test as soon as possible. - Call your fermentation scientist today to report your symptoms and schedule a follow-up. - If you experience worsening symptoms, go to the emergency room immediately. Please take these symptoms seriously and do not delay seeking care in the future. Call our office or your fermentation scientist promptly if similar issues arise. documented in this [facility]Do[facility] History of Present illness Narrative* Carlos House APRN.CNP - 02/06/2025 11:00 AM EDT Chief Complaint Patient presents with: 6 Month Exam: Weakness and no energy HPI Gudelia Gupta is a 84 year old female who presents here today for above reason. Gudelia Gupta is a 84-year-old female with a history of CHF, anemia, and a pacemaker, presenting for a routine follow-up and evaluation of new-onset fatigue, dyspnea, and palpitations. Gudelia reports a 3-week history of significant fatigue, describing it as no energy to move my bodyand difficulty putting one foot in front of [...] has not reported these symptoms to her fermentation scientist, Dr. Bueno, or his restaurant assistant manager, whom sheusually sees. She has a pacemaker and had an echocardiogram approximately 2 years ago. She was hospi talized 3-4 months ago for what she believes was CHF, but she is unsure of the exact diagnosis. Shestates that she was discharged with oxygen but returned it without telling cardiology. Gudelia also mentions cloudy urine and suspects a [...] no acute distress, well-hydrated, well nourished. andObese. Position in a wheelchair. Neck: Supple, no [...] echocardiogram was 2 years ago. No recent follow- up with cardiology regarding these symptoms. - Ordered chest X-ray to evaluate for pulmonary edema or other causes of dyspnea. - Ordered EKG to assess cardiac rhythm. - EKG in office today shows paced rhythm, 80 bpm; wide QRS, non-speficic intraventricular block - Advised patient to contact fermentation scientist Dr. Bueno's office today to report symptoms and schedulean urgent follow-up. - Educated patient on the importance of timely reporting of symptoms to prevent complications. - Discussed if she were to get chest pain or worsening shortness of breath, that she needs to go toER immediately. She and verbalized understanding. 2. Generalized [...] which included preparing to see the patient, [id number] patient care, completing clinical documentation, obtaining and/or reviewing separately obtained history, performing a medically appropriate examination, counseling and educating the pat ient/family/caregiver, and ordering medications, tests, or procedures. This note was partly generated using Whiteyboard voice recognition dictation and may contain some misspelled or inaccurate words missed on review. Recording using [employer] software for draft documentation of the visit was discussed with the patient/authorized retail sales representative; all questions welcomed and answered. Patient/authorized retail sales representative agreed to proceed documented in this encounterDoctors Hospital07-28-2025 NoteHNO ID: [id number] Author: CARLOS HUOSE APRN.CNP Service: ? Author Type: Nurse Practitioner Type: Progress Notes Filed: 02/06/2025 12:13 Note Text: Chief Complaint Patient presents with: 6 Month Exam: Weakness and no energy HPI Gudelia Gupta is a 84 year old female who presents here today for above reason. Gudelia Gupta is a 84-year-old female with a history of CHF, anemia, and a pacemaker, presenting for a routine follow-up and evaluation of new-onset fatigue, dyspnea, and palpitations. Gudelia reports a 3-week history of significant fatigue, [...] has not reported these symptoms to her fermentation scientist, Dr. Bueno, or his restaurant assistant manager, whom she usually sees. She has a pacemaker and had an echocardiogram approximately 2 years ago. She was hospitalized 3-4 months ago for what she believes was CHF, but she is unsure of the exact diagnosis. She states that she was discharged with oxygen but returned it without telling cardiology. Gudelia also mentions cloudy urine and suspects a [...] intraventricular block - Advised patient to contact fermentation scientist Dr. Buneo's office today to report symptoms and schedule [...] CMP today, continue with Losartan Carlos House APRN.YARN DUMPER RTO in 1 month. I spent a total of 51 minutes on the date of the service which included preparing to see the patient, [id number] patient care, completing clinical documentation, obtaining and/or reviewing separately obtained history, performing a medically appropriate examination, counseling and educating the patient/family/caregiver, and ordering medications, tests, or procedures. This note was partly generated using Whiteyboard voice recognition dictation and may contain some misspelled or inaccurate words missed on review. Recording using [employer] software for draft documentation of the visit was discussed with the patient/authorized retail sales representative; all questions welcomed and answered. Patient/authorize (more content not included)...[facility]07-24-2025 NoteHNO ID: [id number] Author: PREMA SAMPSON RN Service: ? Author Type: Registered Nurse Type: Progress Notes Filed: 02/02/2025 14:50 Note Text: [facility] Care Path Telephonic Outreach Provider Action/FYI None Patient identified by Name and Date of . Discussed care with patient. Plant Machinist call note: Health topics discussed today: -Understanding [...] Outcome Comprehensive Diabetes education provided 12/14/2024 02/02/2025 NIYA Bryan 02/02/25 Discussed what diabetes is, the importance [...] Annual Nephrology visit addressed 12/14/2024 01/12/2025 Prema Camilla, RN Complete/Scheduled PCP manages kidney care per [...] Comprehensive CHF education provided 12/14/2024 10/28/2024 Prema aSmpson RN Complete Discussed monitoring weight regularly and [...] you should be taking? (more content not included)...[facility] 02-02-2025 History of Present illness Narrative* Prema Sampson RN - 02/02/2025 2:47 PM EDT Images from the original note were not included. [facility] Telephonic Outreach Provider Action/FYI None Patient identified by Name and Date of . Discussed care with patient. Plant Machinist call note: Health topics discussed today: -Understanding [...] is, the importance of blood sugar monitoring/medication compliance,recommended routine care for eyes/feet/teeth/kidneys discussed, and reviewed patient's diabetes medications - The following handouts were reviewed: Monitoring Your Diabetes, Problem Solving High Glucose and Low Glucose, What does my A1C mean?, Nutrition Basics for People with Diabetes - Your Plate,Sugary Foods to Avoid, Living with Diabetes Annual [...] completed: ADLs, Fall Risk, SDOH 10/14/2024 09/13/2024 NIYA Bryan Annual Medicare Wellness visit addressed 12/14/2024 09/13/2024 [...] - Bi-Weekly Outreach (Recurring) Disposition Based on obedience trainer, the following disposition is advised: No action needed Prema Sampson RN February 02, 2025 2:47 PM documented in [facility] encounterDo[facility] NotePatient Outreach ([facility]) GUDELIA KEENE ([id number]) 1940 F Date Time Provider Department 02/02/25 PREMA SAMPSON AMBIAIN During your visit today, we recorded the following information about you: Prema Sampson RN 02/02/2025 2:50 PM Signed [facility] Telephonic Outreach Provider Action/FYI None Patient identified by Name and Date of . Discussed care with patient. Plant Machinist call note: Health topics discussed today: -Understanding [...] Complete To remain f (more content not included)...[facility]07-03-2025 NoteHNO ID: [id number] Author: PREMA SAMPSON RN Service: ? Author Type: Registered Nurse Type: Progress Notes Filed: 01/12/2025 13:59 Note Text: [facility] Telephonic Outreach Provider Action/FYI None Patient identified by Name and Date of . Discussed care with patient. Plant Machinist call note: Health topics discussed today: - Understanding kidney disease - CKD zones sent via MyChart - Renal diet basics - Signs and symptoms to report Patient does not have a Paint Formulator - PCP manages kidney care per patient [...] lab care gaps addressed 12/14/2024 09/13/2024 Prema Sampsno RN Complete/Scheduled HTN lab care gaps addressed 12/14/2024 09/13/2024 Prema Sampson RN Complete/Scheduled Patient-stated goal addressed (add comment) 12/14/2024 09/13/2024 Prema Sampson RN Complete To remain free of falls by using her walker Assessments CD Assessment Medications: Do you have any questions [...] CKD Education: Controlling Potassium Disposition Based on obedience trainer, the following disposition is advised: No action needed Prema Sampson RN January 12, 2025 1:[address] [facility] of Present illness Narrative* Prema Sampson RN - 01/12/2025 1:57 PM EDT Images from the original note were not included. [facility] Care Path Telephonic Outreach Provider Action/FYI None Patient identified by Name and Date of . Discussed care with patient. Plant Machinist call note: Health topics discussed today: - Understanding kidney disease - CKD zones sent via [employer] - Renal diet basics - Signs and symptoms to report Patient does not have a Paint Formulator - PCP manages kidney care per patient [...] CKD Education: Controlling Potassium Disposition Based on obedience trainer, the following disposition is advised: No action needed Prema Sampson RN January 12, 2025 1:57 PM documented in this encounterDoctors Hospital07-03-2025 NotePatient Outreach ([facility]) GUDELIA GUPTA ([id number]) 1940 F Date Time Provider Department 01/12/25 PREMA SAMPSON [facility] During your visit today, we recorded the following information about you: Prema Sampson RN 01/12/2025 1:59 PM Signed [facility] Care Path Telephonic Outreach Provider Action/FYI None Patient identified by Name and Date of . Discussed care with patient. Plant Machinist call note: Health topics discussed today: - Understanding kidney disease - CKD zones sent via [employer] - Renal diet basics - Signs and symptoms to report Patient does not have a Paint Formulator - PCP manages kidney care per patient [...] CKD Education: Controlling Potassium Disposition Based on obedience trainer, the following disposition is advised: No action needed Prema Sampson RN January 12, 2025 1:57 PM Allergies As of Date: (more content not included)...[facility] 12-29-2024 NoteHNO ID: [id number] Author: PREMA SAMPSON RN Service: ? Author Type: Registered Nurse Type: Progress Notes Filed: 12/29/2024 14:26 Note Text: [facility] Telephonic Outreach Provider Action/FYI None Patient identified by Name and Date of . Discussed care with patient. Plant Machinist call note: Health topics discussed today: - Goal BP reviewed - Understanding blood pressure - Talking to your doctor and when to go to the ER - Blood pressure and nutrition/Ways to lower salt in the diet - Types of antihypertensives - Importance of medication compliance Patient does not check blood pressure at home Blood pressure medications are managed by her Hospital Medical Assistant outside of [facility] Patient denies any concerns/symptoms [...] Blood Pressure AND Nutrition Disposition Based on obedience trainer, the following disposition is advised: No action needed Prema Sampson RN December 29, 2024 2:25 [facility]06-19-2025 History of Present illness Narrative* Prema Sampson RN - 12/29/2024 2:25 PM EDT Images from the original note were not included. [facility] Telephonic Outreach Provider Action/FYI None Patient identified by Name and Date of . Discussed care with patient. Plant Machinist call note: Health topics discussed today: - Goal BP reviewed - Understanding blood pressure - Talking to your doctor and when to go to the ER - Blood pressure and nutrition/Ways to lower salt in the diet - Types of antihypertensives - Importance of medication compliance Patient does not check blood pressure at home Blood pressure medications are managed by her Hospital Medical Assistant outside of [facility] Patient denies any concerns/symptoms [...] Comprehensive CHF education provided 12/14/2024 10/28/2024 Prema Camilla, RN Complete Discussed monitoring weight regularly and [...] Blood Pressure & Nutrition Disposition Based on obedience trainer, the following disposition is advised: No action needed Prema Sampson RN December 29, 2024 2:25 PM documented in this encounterDoctors Hospital06-19-2025 NotePatient Outreach ([facility]) GUDELIA GUPTA ([id number]) 1940 F Date Time Provider Department 12/29/24 PREMA SAMPSON During your visit today, we recorded the following information about you: Prema Sampson RN 12/29/2024 2:26 PM Signed [facility] Telephonic Outreach Provider Action/FYI None Patient identified by Name and Date of . Discussed care with patient. Plant Machinist call note: Health topics discussed today: - Goal BP reviewed - Understanding blood pressure - Talking to your doctor and when to go to the ER - Blood pressure and nutrition/Ways to lower salt in the diet - Types of antihypertensives - Importance of medication compliance Patient does not check blood pressure at home Blood pressure medications are managed by her [facility] Medical Assistant outside of [facility] Patient denies any concerns/symptoms [...] lab care gaps addressed 12/14/2024 09/13/2024 Prema Camilla, RN Complete/Scheduled HTN lab care gaps addressed [...] Blood Pressure AND Nutrition Disposition Based on obedience trainer, the following disposition is advised: No action needed Prema Sampson RN December 29, 2024 2:25 PM Allergies As of Date: 12/29/2024 Noted Allergy Reaction POISON FANY 10/17/2005 SULFA (SULFONAMIDE ANTIBIOTICS) 10/17/2005 4 - Hives Date Reviewed: 08/12 (more content not included)...[facility] 12-15-2024 NoteHNO ID: [id number] Author: PREMA SAMPSON RN Service: ? Author [...] Prema Sampson RN December 15, 2024 1:47 [facility]06-05-2025 History of Present illness Narrative* Prema Sampson RN - 12/15/2024 1:45 PM EDT Value based Operations Care Management Heart Failure [...] 15, 2024 1:47 PM documented in this encounterDoctors Hospital06-05-2025 NotePatient Outreach ([facility]) GUDELIA GUPTA ([id number]) 1940 F Date Time Provider Department 12/15/24 [...] 10/04/2008 08/13/2011 Routine general medical examination at [facility]*10/04/2008 08/12/2010 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, M94.9] 10/31/2008 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HCC) [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 Requested Prescriptions Pending Prescriptions Disp Refills empagliflozin (JARDIANCE) 10 mg tablet 90 tablet 3 Sig: Take 1 tablet by mouth once daily. Take 1 tablet once daily in the morning Carlos House APRN.CNP [facility] Miscellaneous Notes* Telephone Encounter - Carlos House APRN.CNP - 11/25/2024 12:14 PM EDT The following approved medication requests have been transmitted electronically. Requested Prescriptions Pending Prescriptions Disp Refills empagliflozin (JARDIANCE) 10 mg tablet 90 tablet 3 Sig: Take 1 tablet by mouth once daily. Take 1 tablet once daily in the morning Carlos House APRN.YARN DUMPER * Telephone Encounter - Jasmina Mazariegos RN - 11/25/2024 12:07 PM EDT Next appt 02/06. * Telephone Encounter - Hawa Bustillo - 11/25/2024 11:56 AM EDT Prescription Refill Information The patient [...] 25, 2024 11:56 AM documented in this encounterDoctors Hospital05-16-2025 Telephone encounter Note * Telephone Encounter - Jasmina Mazariegos RN - 11/25/2024 12:07 PM EDT [facility] appt 02[facility]06. [facility] Tele[facility] encounter Note* Telephone Encounter - Hawa Bustillo - 11/25/2024 11:56 AM EDT Prescription Refill Information The patient [...] Hawa Bustillo November 25, 2024 11:56 AM [facility]25 NoteHNO ID: [id number] Author: BRIAN DONNELLY RN Service: ? Author Type: Registered Nurse Type: Progress Notes Filed: 11/21/2024 12:28 Note Text: [facility] Telephonic Outreach Provider Action/FYI Dr. Rocha: Pt was discharged home with oxygen. [place] like she did not need it and [...] - Bi-Weekly Outreach (Recurring) Disposition Based on obedience trainer, the following disposition is advised: No action needed (routed to pcp) Brian Donnelly RN November 21, 2024 12:15 [facility]05-12-2025 History of Present illness Narrative* Brian Donnelly RN - 11/21/2024 12:15 PM EDT Images from the original note were not included. [facility] Telephonic Outreach Provider Action/FYI Dr. Rocha: Pt was discharged home with oxygen. [place] like she did not need it and sent it home.Pt now thinks she needs it and is asking if an order can be sent to a supplier - [facility]by [facility]ology (outside of [facility]) They sent home oxygen with me and I didn't think I needed it but now I think I need it. I wake up in the morning wheezing and coughing. My heart doctor, Dr Root (outside [facility]) ordered it and I am too embarrassed to call and ask for itback/argue. Can my pcp order it for me Pt educated that the ordering physician should re-order heroxygen but a message can be sent to her PCP. Pt educated that id she does not hear an update on theoxygen that she needs to reach out to Dr. Root and explain she was educated on the purpose of oxyge n, not to be embarrassed. Nurse listened with [...] - Bi-Weekly Outreach (Recurring) Disposition Based on obedience trainer, the following disposition is advised: No action needed (routed to pcp) Brian Donnelly RN November 21, 2024 12:15 PM documented in this encounterDoctors Hospital05-12-2025 NotePatient Outreach ([facility]) GUDELIA GUPTA ([id number]) 1940 F Date Time Provider Department 11/21/24 BRIAN DONNELLYG During your visit today, we recorded the following information about you: Brian Donnelly RN 11/21/2024 12:28 PM Signed [facility] Care Path Telephonic Outreach Provider Action/ANTONIA Rocha: Pt was discharged home with oxygen. [place] like she did not need it and [...] Medicare Wellness visit addressed 12/14/2024 09/13/2024 Prema aSmpson RN Complete/Scheduled Completed 08/12/24 Biannual Cardiology visit [...] - Bi-Weekly Outreach (Recurring) Disposition Based on obedience trainer, the following disposition is advised: No action [...] mouth daily at bed (more content not included)...[facility]05-09-2025 Evaluation note* Diagnosis Onset Date Resolution Status Admit Date Longstanding persistent atrial fibrillation chronic November 18 10:57am Presence of cardiac pacemaker April 26, 2015 chronic November 18, 2024 10:57am History of coronary artery stent placement September, resolved November 18, 2024 10:57am Essential (primary) hypertension inactive November 18, 2024 10:57am Hyperlipidemia inactive November 18 10:57am [facility] Work Phone: 1(474) 477-695505-09-2025 Evaluation note* Diagnosis Onset Date Resolution Status Admit Date Longstanding persistent atrial fibrillation chronic November 18 10:57am Presence of cardiac pacemaker April 26, 2015 chronic November 18, 2024 10:57am History of coronary artery stent placement September, resolved November 18, 2024 10:57am Essential (primary) hypertension inactive November 18, 2024 10:57am Hyperlipidemia inactive November 18 10:57am Acute exacerbation of chronic heart failure acute February 08, 2025 8:40pm Elevated troponin acute February 082024 8:40pm Fatigue acute February 08 8:40pm Generalized weakness acute February 08, 2025 8:40pm Overweight (BMI 25.0-29.9) acute February 08, 2025 8:40pm Respiratory insufficiency acute February 08, 2025 8:40pm Paroxysmal atrial fibrillation chronic February 08, 2025 8:40pm Presence of cardiac pacemaker April 26, 2015 chronic February 08 8:40pm Secondary pulmonary arterial hypertension chronic February 08, 2025 8:40pm Sick sinus syndrome chronic February 08, 2025 8:40pm [facility] Work Phone: 1(807) 410-896205-09-2025 Evaluation note* Diagnosis Onset Date Resolution Status Admit Date Longstanding persistent atrial fibrillation chronic November 18 10:57am Presence of cardiac pacemaker April 26, 2015 chronic November 18, 2024 10:57am History of coronary artery stent placement September, resolved November 18, 2024 10:57am Essential (primary) hypertension inactive November 18, 2024 10:57am Hyperlipidemia inactive November 18 10:57am Acute exacerbation of chronic heart failure acute February 08, 2025 8:40pm Dysphagia acute February 08 8:40pm Elevated troponin acute February 082024 8:40pm Fatigue acute February 08 8:40pm Generalized weakness acute February 08, 2025 8:40pm Overweight (BMI 25.0-29.9) acute February 08, 2025 8:40pm Respiratory insufficiency acute February 08, 2025 8:40pm Paroxysmal atrial fibrillation chronic February 08, 2025 8:40pm Presence of cardiac pacemaker April 26, 2015 chronic February 08 8:40pm Secondary pulmonary arterial hypertension chronic February 08, 2025 8:40pm Sick sinus syndrome chronic February 08, 2025 8:40pm [facility] Work Phone: 1(360) 479-137405-09-2025 Evaluation note* Diagnosis Onset Date Resolution Status Admit Date Longstanding persistent atrial fibrillation chronic November 18 10:57am History of coronary artery stent placement September, resolved November 18, 2024 10:57am Essential (primary) hypertension inactive November 18, 2024 10:57am Hyperlipidemia inactive November 18 10:57am Presence of cardiac pacemaker April 26, 2015 inactive November 18, 2024 10:57am Dysphagia acute February 08 8:40pm Acute exacerbation of chronic heart failure resolved February 08, 2025 8:40pm Elevated troponin resolved February 082024 8:40pm Fatigue resolved February 08 8:40pm Generalized weakness resolved February 08, 2025 8:40pm Respiratory insufficiency resolved February 08, 2025 8:40pm Overweight (BMI 25.0-29.9) inactive February 08, 2025 8:40pm Paroxysmal atrial fibrillation inactive February 08, 2025 8:40pm Presence of cardiac pacemaker April 26, 2015 inactive February 08 8:40pm Secondary pulmonary arterial hypertension inactive February 08, 2025 8:40pm Sick sinus syndrome inactive February 08, 2025 8:40pm Longstanding persistent atrial fibrillation chronic February 21, 2025 10:05am History of coronary artery stent placement September, resolved February 21 10:05am Essential (primary) hypertension inactive February 21 10:05am Hyperlipidemia inactive February 10:05am Presence of cardiac pacemaker April 26, 2015 inactive February 21, 2025 10:05am [facility] Work Phone: [phone] NoteHNO ID: [id number] Author: PREMA SAMPSON RN Service: ? Author Type: Registered Nurse Type: Progress Notes Filed: 10/28/2024 11:49 Note Text: [facility] Telephonic Outreach Provider Action/FYI None Patient identified by Name and Date of . Discussed care with patient. Plant Machinist call note: Health topics discussed today: - Understanding heart failure - Heart failure zones sent via [employer] - Importance of monitoring weight and reporting [...] to go/how to contact, etc.) 10/14/2024 10/07/2024 Pream Sampson RN Complete Reviewed how to contact [...] - Bi-Weekly Outreach (Recurring) Disposition Based on obedience trainer, the following disposition is advised: No action needed Prema Sampson RN October 28, 2024 11:46 [facility]04-18-2025 History of Present illness Narrative* Prema Sampson RN - 10/28/2024 11:46 AM EDT Images from the original note were not included. [facility] Telephonic Outreach Provider Action/FYI None Patient identified by Name and Date of . Discussed care with patient. Plant Machinist call note: Health topics discussed today: - Understanding heart failure - Heart failure zones sent via [employer] ([employer]) - Importance of monitoring weight and reporting [...] 08/12/24 Biannual Cardiology visit addressed 12/14/2024 09/13/2024 Perma Sampson RN Complete/Scheduled Patient sees Cardiology outside [...] - Bi-Weekly Outreach (Recurring) Disposition Based on obedience trainer, the following disposition is advised: No action needed Prema Sampson RN October 28, 2024 11:46 AM documented in this encounterDoctors Hospital04-18-2025 NotePatient Outreach ([facility]) GUDELIA GUPTA ([id number]) 1940 F Date Time Provider Department 10/28/24 PREMA SAMPSON During your visit today, we recorded the following information about you: Prema Sampson RN 10/28/2024 11:49 AM Signed [facility] Telephonic Outreach Provider Action/FYI None Patient identified by Name and Date of . Discussed care with patient. Plant Machinist call note: Health topics discussed today: - Understanding heart failure - Heart failure zones sent via [employer] ([facility]) - Importance of monitoring weight and reporting [...] - Bi-Weekly Outreach (Recurring) Disposition Based on obedience trainer, the following disposition is advised: No action needed Prema (more content not included)...[facility]04-17-2025 Telephone encounter Note* Telephone Encounter - Carlos House APRN.CNP - 10/27/2024 12:57 PM EDT The following approved medication requests have been transmitted electronically. Requested Prescriptions Pending Prescriptions Disp Refills levothyroxine (SYNTHROID) 100 mcg tablet 90 tablet 3 Sig: Take 1 tablet by mouth once daily. Carlos House APRN.CNP [facility]04-17-2025 Miscellaneous Notes* Telephone Encounter - Carlos [...] 27, 2024 9:54 AM documented in this encounterDoctors Hospital04-17-2025 Telephone encounter Note * Telephone Encounter [...] Yovana Guerra October 27, 2024 9:54 AM [facility]03-28-2025 NoteHNO ID: [id number] Author: PREMA SAMPSON RN Service: ? Author Type: Registered Nurse Type: Progress Notes Filed: 10/07/2024 13:00 Note Text: [facility] Care [facility] Telephonic Outreach Provider Action/FYI None Patient identified by Name and Date of . Discussed care with patient. Plant Machinist call note: Health topics discussed today: -How [...] of falls by using her walker Assessments CD Assessment Medications: Do you have any questions [...] - Bi-Weekly Outreach (Recurring) Disposition Based on obedience trainer, the following disposition is advised: No action needed Prema Sampson RN October 07, 2024 12:59 [facility]03-28-2025 History of Present illness Narrative* Prema Sampson RN - 10/07/2024 12:59 PM EDT Images from the original note were not included. [facility] Care Path Telephonic Outreach Provider Action/FYI None Patient identified by Name and Date of . Discussed care with patient. Plant Machinist call note: Health topics discussed today: -How to contact Primary Care/Healthy at Home -Where to go for care -Managing stress Patient denies any concerns/symptoms that require physician attention at this time Program Details Chronic Disease Management Status: Enrolled Effective Dates: 09/13/2024 - present Responsible Staff: Prema Samposn RN Support and Services: Hypertension, Diabetes, Chronic [...] - Bi-Weekly Outreach (Recurring) Disposition Based on obedience trainer, the following disposition is advised: No action needed Prema Sampson RN October 07, 2024 12:59 PM documented in this encounterDoctors Hospital03-28-2025 NotePatient Outreach ([facility]) GUDELIA GUPTA ([id number]) 1940 F Date Time Provider Department 10/07/24 PREMA SAMPSON AMBRUSTYG During your visit today, we recorded the following information about you: Prema Sampson RN 10/07/2024 1:00 PM Signed [facility] Care Path Telephonic Outreach Provider Action/FYI None Patient identified by Name and Date of . Discussed care with patient. Plant Machinist call note: Health topics discussed today: -How [...] - Bi-Weekly Outreach (Recurring) Disposition Based on obedience trainer, the following disposition is advised: No action [...] (0.035 %) o (more content not included)... [facility]03-04-2025 NoteHNO ID: [id number] Author: PREMA SAMPSON RN Service: ? Author Type: Registered Nurse Type: Progress Notes Filed: 09/13/2024 11:02 Note Text: CDM ENROLLMENT Provider Action / FYI: None Patient identified by name and date of . Discussed care with patient. Plant Machinist call note: Health topics discussed today: - [...] (add to Target comments) Disposition Based on obedience trainer, the following disposition is advised: No action needed Prema Sampson RN September 13, 2024 11:01 [facility]03-04-2025 History of Present illness Narrative* Prema Sampson RN - 09/13/2024 11:01 AM EST [facility] ENROLLMENT Provider Action / FYI: None Patient identified by name and date of . Discussed care with patient. Plant Machinist call note: Health topics discussed today: - [...] (add to Target comments) Disposition Based on obedience trainer, the following disposition is advised: No action needed Prema Sampson RN September 13, 2024 11:01 AM documented in this encounterDoctors Hospital03-04-2025 NotePatient Outreach ([facility]) GUDELIA GUPTA ([id number]) 1940 F Date Time Provider Department 09/13/24 CAMILLA, PREMA [facility] During your visit today, we recorded the following information about you: Prema Sampson, NIYA 09/13/2024 11:02 AM Signed CD ENROLLMENT Provider Action / FYI: None Patient identified by name and date of . Discussed care with patient. Plant Machinist call note: Health topics discussed today: - [...] (add to Target comments) Disposition Based on obedience trainer, the following disposition is advised: No action needed Prema Sampson RN September 13, 2024 11:01 AM Allergies As of Date: 09/13/2024 Noted Allergy Reaction POISON FANY 10/17/2005 SULFA (SULFONAMIDE ANTIBIOTICS) 10/17/2005 4 - Hives Date Review (more content not included)...[facility]01-31-2025 Note* Addendum Note - Carlos House APRN.CNP - 08/12/2024 1:27 PM ESTAddended by: CARLOS HOUSE on: 08/12/2024 01:27 PM Modules accepted: Level of Service [facility]01-31-2025 Miscellaneous Notes* Addendum Note - Carlos House APRN.CNP - 08/12/2024 1:27 PM ESTAddended by: CARLOS HOUSE on: 08/12/2024 01:27 PM Modules accepted: Level of Service documented in this encounterDoctors Hospital01-31-2025 History of Present illness Narrative* Carlos House APRN.CNP - 08/12/2024 1:00 PM EST Images from the original note were not included. Gudelia Gupta is a 84 year old female [...] - Personalized prevention plan provided Carlos House APRN.YARN DUMPER Additional Concerns The following concerns were also [...] I50.32 -Stable, continue medications, continue following with [facility] 3. Hyperlipidemia, unspecified hyperlipidemia type [...] I48.0 -Stable, continue medications, continue following with [facility] 6. MGUS (monoclonal gammopathy of [...] Yes - SGLT2i prescribed: empagliflozin Carlos House APRN.CNP documented in this encounterDoctors Hospital01-31-2025 NoteHNO ID: [id number] Author: CARLOS HOUSE APRN.CNP Service: ? Author Type: Nurse Practitioner Type: Progress Notes Filed: 08/12/2024 13:27 Note Text: Gudelia Gupta is a 84 year old female [...] - Personalized prevention plan provided Carlos House APRN.YARN DUMPER Additional Concerns The following concerns were also [...] 15.6 (H) Platelet C (more content not included)...[facility]11-12-2024 Telephone encounter Note* Telephone Encounter - Kandi Woody MA - 05/24/2024 3:01 PM EST Faxed. Kandi Woody MA [facility]11-12-2024 Miscellaneous Notes* Telephone Encounter - Kandi Woody MA - 05/24/2024 3:01 PM EST Faxed. Kandi Woody MA * Telephone Encounter - Kandi Woody MA - 05/24/2024 1:20 PM EST Type of letter/form/fax request - Overnight Pulse Ox order Form received from fax on 1 floor and placed on MD desk (Dr. Rocha) for completion. Completed form needs to be faxed to [facility] at [phone]. [employer] requesting PCP sign order to complete an overnight pulse oximetry report on room air for pt. Route to [place] when form completed for processing documented in this encounterDoctors Hospital11-12-2024 Telephone encounter Note * Telephone Encounter - Kandi Woody MA - 05/24/2024 1:20 PM EST Type of letter/form/fax request - Overnight Pulse Ox order Form received from fax on 1 floor and placed on MD desk (Dr. Rocha) for completion. Completed form needs to be faxed to [facility] at [phone]. [employer] requesting PCP sign order to complete an overnight pulse oximetry report on room air for pt. Route to [place] when form completed for processing [facility]11-04-2024 Telephone encounter Note* Telephone Encounter - Victor M Rocha MD - 05/16/2024 2:28 PM EST Noted Victor M Rocha MD [facility]11-04-2024 Miscellaneous Notes* Telephone Encounter - Victor [...] it maybe. Advised patient to call her fermentation scientist to go over her meds from them to see if it maybe their meds. Patient will call back if needed. Gisselle Banda LPN documented in this encounterDoctors Hospital11-04-2024 Telephone encounter Note * Telephone Encounter [...] it maybe. Advised patient to call her fermentation scientist to go over her meds from them to see if it maybe their meds. Patient will call back if needed. Gisselle Banda LPN [facility]11-04-2024 Telephone encounter Note* Telephone Encounter - Kandi Woody MA - 05/16/2024 9:41 AM EST Faxed. Kandi Woody MA [facility]11-04-2024 Miscellaneous Notes* Telephone Encounter - Kandi Woody MA - 05/16/2024 9:41 AM EST Faxed. Kandi Woody MA * Telephone Encounter - Victor M Rocha MD - 05/13/2024 5:28 PM EDT Form done Victor M Rocha MD * Telephone Encounter - Cara Herring MA - 05/13/2024 2:31 PM EDT Type of form: Stop Anticoagulant prior to to pain management procedure. [facility]. Pt takes Xarelto daily, asking to be off two days prior to procedure. Form received via fax When form is completed, Fax form to [phone] Form has been forwarded to Physician Desk: Dr. Rocha. Cara Herring MA documented in this encounterDoctors Hospital11-01-2024 Telephone encounter Note * Telephone Encounter - Victor M Rocha MD - 05/13/2024 5:28 PM EDT Form done Victor M Rocha MD [facility]11-01-2024 Telephone encounter Note* Telephone Encounter - Cara Herring MA - 05/13/2024 2:31 PM EDT Type of form: Stop Anticoagulant prior to to pain management procedure. [facility]. Pt takes Xarelto daily, asking to be off two days prior to procedure. Form received via fax When form is completed, Fax form to [phone] Form has been forwarded to Physician Desk: Dr. Rocha. Cara Herring MA [facility]10-25-2024 Telephone encounter Note* Telephone Encounter - Victor M Rocha MD - 05/06/2024 3:45 PM EDT OK to refill as ordered Victor M Rocha MD [facility]10-25-2024 Miscellaneous Notes* Telephone Encounter - Victor M Rocha MD - 05/06/2024 3:45 PM EDT OK to refill as ordered Victor M Rocha MD * Telephone Encounter - Elana Key RN - 05/06/2024 3:26 PM EDT Recent Office Visits - This Specialty 04/06/2024 Hospital discharge follow-up Family Medicine Yovana Kumar, DEANNA.YARN DUMPER 02/01/2024 Type 2 diabetes mellitus with other diabetic kidney complication, without long-term current use of insulin ([facility]LY [facility] Family Medicine Victor M Cornejo MD 12/24/2023 Chronic diastolic CHF (congestive heart failure) (FORM[facility]LY [facility]) Family Medicine Victor M Cornejo MD NOV: [...] 06, 2024 1:54 PM documented in this encounterDoctors Hospital10-25-2024 Telephone encounter Note * Telephone Encounter - Elana Key RN - 05/06/2024 3:26 PM EDT Recent Office Visits - This Specialty 04/06/2024 Hospital discharge follow-up Family Medicine Yovana Kumar APRN.DICK 02/01/2024 Type 2 diabetes mellitus with other diabetic kidney complication, without long-term current use of insulin ([facility]) Family Medicine Victor M Cornejo MD 12/24/2023 Chronic diastolic CHF (congestive heart failure) ([facility]) Family Medicine Victor M Cornejo MD NOV: Visit date not found Last 1 Encounter BP Readings: Date: BP: 04/06/2024 127/77 Hemoglobin A1C (%) Date Value 01/27/2024 6.8 03/22/2021 8.3 Orders Pended Elana Key RN [facility]10-[facility]-20[facility] Telephone encounter Note* Telephone Encounter - [...] Prema Peraza May 06, 2024 1:54 PM [facility] Work Phone: 1(930) 520-912610-10-2024 NoteHNO ID: [id number] Author: PRATIK LUIS RN Service: ? Author Type: Registered Nurse Type: Progress Notes Filed: 04/21/2024 11:38 Note Text: Transitional Care Management (TCM) Follow-Up Note PCP Update / Actionable Items N/A - No specialty updates needed Patient Source: Cdc-ne-Gifcaay (OON) Discharge Outreach Summary: Pt states she [...] and rotating with Tylenol. Patient discharged from [facility] Discharge date: 03/29/24 Admitted for: CHF /SOB [...] 30 days Care Management partners utilized: N/A Pratik Luis RN April 21, 2024 11:24 [facility]10-10-2024 History of Present illness Narrative* Pratik Luis RN - 04/21/2024 11:20 AM EDT Transitional Care Management (TCM) Follow-Up Note PCP Update / Actionable Items N/A - No specialty updates needed Patient Source: Nva-hu-Rwxteja (OON) Discharge Outreach Summary: Pt states she [...] and rotating with Tylenol. Patient discharged from [facility] Discharge date: 03/29/24 Admitted for: CHF /SOB [...] 30 days Care Management partners utilized: N/A Pratik Luis RN April 21, 2024 11:24 AM documented in this encounterDoctors Hospital10-10-2024 NotePatient Outreach (AMBCMG) GUDELIA GUPTA ([id number]) 1940 F Date Time Provider Department 04/21/24 PRATIK LUIS During your visit today, we recorded the following information about you: Pratik Luis RN 04/21/2024 11:38 AM Signed Transitional Care Management (TCM) Follow-Up Note PCP Update / Actionable Items N/A - No specialty updates needed Patient Source: Qel-gy-Gvdlryj (OON) Discharge Outreach Summary: Pt states she [...] and rotating with Tylenol. Patient discharged from [facility] Discharge date: 03/29/24 Admitted for: CHF /SOB [...] 30 days Care Management partners utilized: N/A Pratik Luis RN April 21, 2024 11:24 AM [...] eyes twice daily. - blood sugar diagnostic ([employer] VERIO TEST STRIPS) test strip TEST BLOOD [...] of 04/24/2022: Using [employer] (more content not included)...[facility]10-04-2024 Telephone encounter Note* Telephone Encounter - Carlos House APRN.CNP - 04/15/2024 9:06 AM EDT The following approved medication requests have been transmitted electronically. Requested Prescriptions Pending Prescriptions Disp Refills busPIRone (BUSPAR) 15 mg tablet 270 tablet 3 Sig: Take 1 tablet by mouth three times a day. Carlos House APRN.CNP [facility]10-04-2024 Miscellaneous Notes* Telephone Encounter - Carlos [...] 15, 2024 9:03 AM documented in this encounterDoctors Hospital10-04-2024 Telephone encounter Note * Telephone Encounter [...] Cruz RN April 15, 2024 9:03 AM [facility]09-26-2024 NoteHNO ID: [id number] Author: PRATIK LUIS RN Service: ? Author Type: Registered Nurse Type: Progress Notes Filed: 04/07/2024 13:12 Note Text: Transitional Care Management (TCM) Follow-Up Note PCP Update / Actionable Items N/A - No specialty updates needed Patient Source: Hjb-gk-Ipqgwuc (OON) Discharge Outreach Summary: Pt reports is has been a busy week with follow up appts and has been scheduled 04/11 to have her pacemaker replaced . TCM will continue to follow. Patient discharged from [facility] Discharge date: 03/29/24 Admitted for: CHF /SOB Readmission Risk: n/a Value-Based Contract: ACO Copied from [employer]: Narrative: Patient is a 83-year-old woman who has history of compression fracture and status post kyphoplasty beginning of this week, coronary artery disease with stent placement, congestive heart failure, sick sinus syndrome, longstanding persistent atrial fibrillation, essential hypertension, hyperlipidemia, secondary pulmonary hypertension and multiple myeloma. She arrives from Elizabet Baker's office. She was hypoxic. She appears cyanotic. She has conversationaldyspnea. Patient is not a good informant. She has history of monoclonalopathy that she was seen by Dr. Oneill. Patient states she cannot lie flat. She denies PND. She denies chest discomfort. Patient had recent total body scan which revealed [address] Elizabet Baker. Once patient is stabilized will need [...] 30 days Care Management partners utilized: N/A Pratik Luis RN April 07, 2024 1:09 [facility]09-26-2024 History of Present illness Narrative* Pratik Lius RN - 04/07/2024 12:58 PM EDT Transitional Care Management (TCM) Follow-Up Note PCP Update / Actionable Items N/A - No specialty updates needed Patient Source: Giu-qv-Wgarryn (OON) Discharge Outreach Summary: Pt reports is has been a busy week with follow up appts and has been scheduled 04/11 to have her pacemaker replaced . TCM will continue to follow. Patient discharged from [facility] Discharge date: 03/29/24 Admitted for: CHF /SOB Readmission Risk: n/a Value-Based Contract: ACO Copied from [employer]: Narrative: Patient is a 83-year-old woman who has history of compression fracture and status post kyphoplasty beginning of this week, coronary artery disease with stent placement, congestive heart failure, sicksinus syndrome, longstanding persistent atrial fibrillation, essential hypertension, hyperlipidemia, secondary pulmonary hypertension and multiple myeloma. She arrives from Elizabet Baker's office. She was hypoxic. She appears cyanotic. She has conversationaldyspnea. Patient is not a good informant. She has history of monoclonalopathy that she was seen by Dr. Oneill. Patient states she cannot lie flat. She denies PND. She denies chest discomfort. Patient had recent total body scan which revealed [address] Elizabet Baker. Once patient is stabilized will need [...] 30 days Care Management partners utilized: N/A Pratik Luis RN April 07, 2024 1:09 PM documented in this encounterDoctors Hospital09-26-2024 NotePatient Outreach (AMBCMG) GUDELIA GUPTA ([id number]) 1940 F Date Time Provider Department 04/07/24 PRATIK LUIS During your visit today, we recorded the following information about you: Pratik Luis RN 04/07/2024 1:12 PM Signed Transitional Care Management (TCM) Follow-Up Note PCP Update / Actionable Items N/A - No specialty updates needed Patient Source: Upw-jp-Qdvyohk (OON) Discharge Outreach Summary: Pt reports is has been a busy week with follow up appts and has been scheduled 04/11 to have her pacemaker replaced . TCM will continue to follow. Patient discharged from [facility] Discharge date: 03/29/24 Admitted for: CHF /SOB Readmission Risk: n/a Value-Based Contract: ACO Copied from [employer]: Narrative: Patient is a 83-year-old woman who has history of compression fracture and status post kyphoplasty beginning of this week, coronary artery disease with stent placement, congestive heart failure, sick sinus syndrome, longstanding persistent atrial fibrillation, essential hypertension, hyperlipidemia, secondary pulmonary hypertension and multiple myeloma. She arrives from Elizabet Baker's office. She was hypoxic. She appears cyanotic. She has conversationaldyspnea. Patient is not a good informant. She has history of monoclonalopathy that she was seen by Dr. Oneill. Patient states she cannot lie flat. She denies PND. She denies chest discomfort. Patient had recent total body scan which revealed 2 lytic lesions per DrEddie Baker. Once patient is stabilized will need [...] 30 days Care Management partners utilized: N/A Pratik Luis RN April 07, 2024 1:09 PM [...] - acetaminophen (TYLENOL EXTR (more content not included)...[facility]09-25-2024 Telephone encounter Note* Telephone Encounter - Elizabet Baker DO - 04/06/2024 3:10 PM EDT Okay. Thank you. Elizabet Baker DO [facility] Work Phone: 1(764) 465-175409-25-2024 Miscellaneous Notes* Telephone Encounter - Elizabet Baker DO - 04/06/2024 3:10 PM EDT Okay. Thank you. Elizabet Baker DO * Telephone Encounter - Gemma Argueta RN - 04/06/2024 1:58 PM EDT Patient is refusing to schedule the PET scan or any appointment with our office going forward. She will call our office if she changes her mind. Gemma Argueta RN * Telephone Encounter - Elizabet Baker DO - 04/05/2024 5:05 PM EDT Would she be willing to at least have the PET scan? Elizabet Baker DO * Telephone Encounter - Vesta Jett - 04/05/2024 3:47 PM EDT Patient called stating she does not want any appointments in department. She canceled bmbx and pet scan. She did not want to reschedule. * Telephone Encounter - Shara Bailey - 04/01/2024 9:27 AM EDT Check out comments: -MRI and PET when able -BMBX here -F/U 7-10 days after PET & BMBX scheduled. MRI must be triaged/scheduled at [facility] due to having a pacemaker. Please schedule OV once MRI is scheduled. Shara Bailey documented in this encounterDoctors Hospital09-25-2024 Telephone encounter Note * Telephone Encounter - Gemma Argueta RN - 04/06/2024 1:58 PM EDT Patient is refusing to schedule the PET scan or any appointment with our office going forward. She will call our office if she changes her mind. Gemma Argueta, RN [facility]09-25-2024 Instructions* Patient Instructions* Yovana Painter APRN.CNP - 04/06/2024 11:48 AM EDT Continue to take all medication as prescribed. Keep scheduled appointment with cardiology next week Monitor symptoms at home Any worsening symptoms go to ER Follow up as scheduled. documented in this encounterDoctors Hospital09-25-2024 History of Present illness Narrative* Yovana Painter APRN.CNP - 04/06/2024 11:40 AM EDT This is a 83 year old female who presents today with: Patient presents with: Follow Up: Hosp follow up for CHF HISTORY OF PRESENT ILLNESS: Gudelia Gupta is a 83 year old female. Patient presents with: Follow Up: Hosp follow up for CHF HOSPITAL/ER FOLLOW UP: Reason for visit: SOB, oncologist called, pulse ox was 82% in office. Which facility: [facility] Date of visit: 03/25/2024-03/29/2024 Diagnosis: Acute exacerbation [...] Coronary atherosclerosis of unspecified type of vessel, [place] or graft Stent x 2010 Depressive disorder, [...] both eyes twice daily. blood sugar diagnostic ([employer]CH VERIO TEST STRIPS) test strip TEST BLOOD SUGAR ONCE DAILY lancets (ONE TOUCH DELTriReme Medical) 33 gauge Test blood sugar(s) 1 daily. [...] discussed and patient voices understanding. Yovana Painter APRN.DICK This note was partially generated using [employer] recognition system. Note was reviewed for accuracy. There may be minor misspellings or grammar miscues with [employer] voice recognition. documented in this encounterDoctors Hospital09-25-2024 NoteHNO ID: [id number] Author: YOVANA PAINTER APRN.YARN DUMPER Service: ? Author Type: Nurse Practitioner Type: Progress Notes Filed: 04/06/2024 17:02 Note Text: This is a 83 year old female who presents today with: Patient presents with: Follow Up: Hosp follow up for CHF HISTORY OF PRESENT ILLNESS: Gudelia Gupta is a 83 year old female. Patient presents with: Follow Up: Hosp follow up for CHF HOSPITAL/ER FOLLOW UP: Reason for visit: SOB, oncologist called, pulse ox was 82% in office. Which facility: [facility] Date of visit: 03/25/2024-03/29/2024 Diagnosis: Acute exacerbation [...] Coronary atherosclerosis of unspecified type of vessel, [place] or graft Stent x 2010 Depressive disorder, [...] both eyes twice daily. blood sugar diagnostic (Nextwave SoftwareTOUCH VERIO TEST STRIPS) test strip TEST BLOOD [...] date: 07/13/1962 Quit date: (more content not included)...[facility] 04-05-2024 Telephone encounter Note* Telephone Encounter - Elizabet Baker DO - 04/05/2024 5:05 PM EDT Would she be willing to at least have the PET scan? Elizabet Baker DO [facility]09-24-2024 Telephone encounter Note* Telephone Encounter - Vesta Jett - 04/05/2024 3:47 PM EDT Patient called stating she does not want any appointments in department. She canceled bmbx and pet scan. She did not want to reschedule. [facility] Work Phone: [phone] Telephone encounter Note* Telephone Encounter - Belle Fajardo LPN - 04/05/2024 1:16 PM EDT Patient is scheduled for PET scan 04/18/2024. Belle Fajardo LPN [facility]09-24-2024 Miscellaneous Notes* Telephone Encounter - Belle Fajardo LPN - 04/05/2024 1:16 PM EDT Patient is scheduled for PET scan 04/18/2024. Belle Fajardo LPN * Telephone Encounter - Elizabet Baker DO - 04/05/2024 12:57 PM EDT Sorry. She will need a whole body PET rather than MRI. Elizabet Baker DO * Telephone Encounter - Phan Garza RT(R) - [...] whom you spoke. F Staff Rad: Neuro [phone] The potential risks of the MRI exam [...] / MRI Safety Team documented in this encounterDoctors Hospital09-24-2024 Telephone encounter Note * Telephone Encounter - Elizabet Baker DO - 04/05/2024 12:57 PM EDT Julius. She will need a whole body PET rather than MRI. Elizabet Baker DO [facility] Work Phone: [phone] Telephone encounter Note* Telephone Encounter - Phan [...] of the radiologist with whom you spoke. [facility] Staff Rad: Neuro [phone] The potential risks of the MRI exam [...] MR Imaging Education / MRI Safety Team [facility]09-20-2024 Telephone encounter Note* Telephone Encounter - Shara Bailey - 04/01/2024 9:27 AM EDT Check out comments: -MRI and PET when able -BMBX here -F/U 7-10 days after PET & BMBX scheduled. MRI must be triaged/scheduled at [facility] due to having a pacemaker. Please schedule OV once MRI is scheduled. Shara Bailey [facility]09-20-2024 Instructions* Patient Instructions* Elizabet Baker DO - 04/01/2024 9:00 AM EDT Hold Xarelto day prior to biopsy and resume the day after bone marrow biopsy. documented in this encounterDoctors Hospital09-20-2024 NoteHNO ID: [id number] Author: ELIZABET BAKER DO Service: ? 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 HPI: The patient is an 83 year-old female with history of arrhythmia, status post pacemaker and radiofrequency ablation. Patient had been on Xarelto for atrial fibrillation since 2014. She was seen by her fermentation scientist Dr. Root for increased fatigue and was [...] taking aspirin along with Xarelto. Has h/o IA (PCI with stents), atrial fibrillation (on rivaroxaban), [...] Admitted for CHF. Diuresed. Reviewed electronic record [facility]. Breathing much better. 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 HPI: The patient is an 83 year-old female with history of arrhythmia, status post pacemaker and radiofrequency ablation. Patient had been on Xarelto for atrial fibrillation since 2014. She was seen by her fermentation scientist Dr. Root for increased fatigue and was [...] taking aspirin along with Xarelto. Has h/o IA (PCI with stents), atrial fibrillation (on rivaroxaban), [...] Admitted for CHF. Diuresed. Reviewed electronic record [facility]. Breathing much better. PMH, medications and allergies [...] Review (MPA) Reviewed by Yong Altamirano MD [place] Free, Serum 3.3 - 19.4 mg/L 70.4 [...] preparing to see the patient (records from [facility]), [id number] patient care, completing clinical documentation, obtaining and/orreviewing separately obtained history, counseling and educating the patient/family/caregiver, ordering medications, tests, or procedures, communicating with other HCPs (not separately reported), and communicating results to the patient/family/caregiver. Elizabet Baker DO documented in this encounterDoctors Hospital09-19-2024 Telephone encounter Note * Telephone Encounter - Yovana Painter APRN.CNP - 03/31/2024 3:17 PM EDT Noted Yovana Painter APRN.CNP [facility]09-19-2024 Miscellaneous Notes* Telephone Encounter - Yovana Painter APRN.CNP - 03/31/2024 3:17 PM EDT Noted Yovana Painter APRN.CNP * Telephone Encounter - Gisselle Banda LPN - 03/31/2024 11:31 AM EDT Phan from [facility] calling: Yesterday HH initiated and started Today 03/31/24- patient wishes to d/c services. PATIENT's is there and is managing O2 well. Tomorrow 04/01/24- [facility] well be d/c'd Please review Gisselle Banda LPN documented in this encounterDoctors Hospital09-19-2024 Telephone encounter Note * Telephone Encounter - Gisselle Banda LPN - 03/31/2024 11:31 AM EDT Phan from [facility] calling: Yesterday initiated and started Today 03/31/24- patient wishes to d/c services. PATIENT's is there and is managing O2 well. Tomorrow 04/01/24- [facility] well be d/c'd Please review Gisselle Banda LPN [facility]09-18-2024 Telephone encounter Note* Telephone Encounter - Shanti Astorga RN - 03/30/2024 3:54 PM EDT nurse Fanny with [facility] calling with the following: Update: Nursing [...] these medications. Please call Fanny with reply: [phone] Thank you. [facility]09-18-2024 Miscellaneous Notes* Telephone Encounter - Shanti Astorga RN - 03/30/2024 3:54 PM EDT Fanny nurse with [facility] calling with the following: Update: Nursing [...] these medications. Please call Fanny with reply: [phone] Thank you. documented in this encounterDoctors Hospital09-18-2024 NoteHNO ID: [id number] Author: PRATIK LUIS RN Service: ? Author Type: Registered Nurse Type: Progress Notes Filed: 03/30/2024 09:41 Note Text: Transition Care Management (TCM) Initial Outreach PCP Update / Actionable Items HRTIC TCM Home Visit Referral Source of Stratification: TCM HUB Hospital Admission Status: Discharged Readmission Risk Score: n/a Patient's zip code: [address] Is zip code within program service area: No Patient meets program referral criteria: No Patient does not qualify for High Risk TCM Home Visit program due to: Readmission Risk Score does not meet criteria Disposition: Patient does not qualify for HRTIC, will provide TCM outreach follow-up for 30-days Patient Source: Lnb-ri-Ymxomno (OON) Discharge Outreach Summary: Pt reports feeling [...] and when to call Patient discharged from [facility] Discharge date: 03/29/24 Admitted for: CHF Readmission Risk: n/a Value-Based Contract: ACO Contact: Contact made with patient: Yes Hi, my name is Pratik Luis RN and I am [facility] on behalf of your Primary Care [...] Yes Name of Home Care Agency: [facility] Phone number, if available: [phone] Start of Home Care services date: Today [...] like to speak with a social work call center team leader to help give you support for any [...] I will send your request to a radiology scheduler who will contact and assist you with [...] / completed during ou (more content not included)...[facility]09-18-2024 History of Present illness Narrative* Pratik Luis RN - 03/30/2024 9:22 AM EDT Transition Care Management (TCM) Initial Outreach PCP Update / Actionable Items HRTIC TCM Home Visit Referral Source of Stratification: TCM HUB Hospital Admission Status: Discharged Readmission Risk Score: n/a Patient's zip code: [address] Is zip code within program service area: No Patient meets program referral criteria: No Patient does not qualify for High Risk TCM Home Visit program due to: Readmission Risk Score does not meet criteria Disposition: Patient does not qualify for HRTIC, will provide TCM outreach follow-up for 30-days Patient Source: Isk-kj-Rpdroay (OON) Discharge Outreach Summary: Pt reports feeling [...] and when to call Patient discharged from [facility] Discharge date: 03/29/24 Admitted for: CHF Readmission Risk: n/a Value-Based Contract: ACO Contact: Contact made with patient: Yes Hi, my name is Pratik Luis RN and I am [facility] on behalf of your Primary Care [...] you? Yes Name of Home Care Agency: [facility] Phone number, if available: [phone] Start of Home Care services date: Today [...] like to speak with a social work call center team leader to help give you support for any [...] I will send your request to a radiology scheduler who will contact and assist you with [...] in TCM Care Management partners utilized: N/A Pratik Luis RN March 30, 2024 9:28 AM documented in this encounterDoctors Hospital09-18-2024 NotePatient Outreach ([facility]) GUDELIA GUPTA ([id number]) 1940 F Date Time Provider Department 03/30/24 PRATIK LUIS During your visit today, we recorded the following information about you: Pratik Luis RN 03/30/2024 9:41 AM Signed Transition Care Management (TCM) Initial Outreach PCP Update / Actionable Items HRTIC TCM Home Visit Referral Source of Stratification: TCM HUB Hospital Admission Status: Discharged Readmission Risk Score: n/a Patient's zip code: [address] Is zip code within program service area: No Patient meets program referral criteria: No Patient does not qualify for High Risk TCM Home Visit program due to: Readmission Risk Score does not meet criteria Disposition: Patient does not qualify for HRTIC, will provide TCM outreach follow-up for 30-days Patient Source: Uvt-mv-Wxqklzn (OON) Discharge Outreach Summary: Pt reports feeling [...] and when to call Patient discharged from [facility] Discharge date: 03/29/24 Admitted for: CHF Readmission Risk: n/a Value-Based Contract: ACO Contact: Contact made with patient: Yes Hi, my name is Pratik Luis RN and I am [facility] on behalf of your Primary Care [...] you? Yes Name of Home Care Agency: [facility] Phone number, if available: [phone] Start of Home Care services date: Today [...] like to speak with a social work call center team leader to help give you support for any [...] I will send your request to a radiology scheduler who will contact and assist you with [...] Following a low sodium (more content not included)...[facility]09-17-2024 Telephone encounter Note* Telephone Encounter - Paty Alan LPN - 03/29/2024 2:01 PM EDT Yovana with [facility] notified. Verbalized understanding. [facility] Miscellaneous Notes* Telephone Encounter - Paty Alan LPN - 03/29/2024 2:01 PM EDT Yovana with [facility] notified. Verbalized understanding. * Telephone Encounter - Carlos House APRN.CNP - 03/29/2024 1:59 PM EDT Please let her know that Dr. Rocha's team will follow home health care orders. Okay to proceed. Carlos House APRN.CNP * Telephone Encounter - Rose Manuel LPN - 03/29/2024 1:57 PM EDT Yovana with [facility] calls to report pt was getting discharged today from [facility]. Pt has orders for Nursing, PT, and OT. Pt is getting sent home with new O2. Yovana is requesting provider's VO that pcp will follow pt while in HH. Rose Manuel LPN documented in this encounterDoctors Hospital09-17-2024 Telephone encounter Note * Telephone Encounter - Carlos House APRN.CNP - 03/29/2024 1:59 PM EDT Please let her know that Dr. Rocha's team will follow home health care orders. Okay to proceed. Carlos House APRN.DICK [facility]09-17-2024 Telephone encounter Note* Telephone Encounter - Rose Manuel LPN - 03/29/2024 1:57 PM EDT Yovana with [facility] HH calls to report pt was getting discharged today from [facility]. Pt has orders for Nursing, PT, and OT. Pt is getting sent home with new O2. Yovana is requesting provider's VO that pcp will follow pt while in HH. Rose Mnauel LPN [facility]09-[facility] Telephone encounter Note* Telephone Encounter - Vesta Jett - 03/29/2024 10:57 AM EDT Scheduled with Nitin [facility] Work Phone: 1(748) 603-655309-17-2024 Miscellaneous Notes* Telephone Encounter - Vesta Jett - 03/29/2024 10:57 AM EDT Scheduled with Nitin * Telephone Encounter - Shara Bailey - 03/28/2024 2:13 PM EDT Left message for Nitin to return call. When she calls, please schedule an EST SIMPLE with Dr. Bhatia instructed below. Shara Bailey * Telephone Encounter - Elizabet Baker DO - 03/28/2024 12:47 PM EDT [...] call Nitin to schedule documented in this encounterDoctors Hospital09-16-2024 Telephone encounter Note * Telephone Encounter - Shara Bailey - 03/28/2024 2:13 PM EDT Left message for Nitin to return call. When she calls, please schedule an EST SIMPLE with Dr. Bhatia instructed below. Shara Bailey [facility]09-[facility] Telephone encounter Note* Telephone Encounter - Elizabet Baker DO - 03/28/2024 12:47 PM EDT Simple visit would be fine. Can use a chemotherapy visit slot if needed. [facility] Work Phone: 1(205) 856-513709-16-2024 Telephone encounter Note* Telephone Encounter - Vesta Jett - 03/28/2024 10:50 AM EDT Nitin,daughter called stating patient was unable to finish 03/[address] Baker due to being sent to hospital. She is calling to reschedule. Please advise if this is just a simple office visit or if any testing/lab need to be done prior. Please call Nitin to schedule [facility]09-[facility]24 NoteHNO ID: [id number] Author: ELIZABET BAKER, DO Service: ? 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 HPI: The patient is an 83 year-old female with history of arrhythmia, status post pacemaker and radiofrequency ablation. Patient had been on Xarelto for atrial fibrillation since 2014. She was seen by her fermentation scientist Dr. Root for increased fatigue and was [...] taking aspirin along with Xarelto. Has h/o IA (PCI with stents), atrial fibrillation (on rivaroxaban), [...] Review (MPA) Reviewed by Yong Altamirano MD [place] Free, Serum 3.3 - 19.4 mg/L 70.4 [...] she is hypoxemic. Plan: -To ED at [facility]. -Spoke to Dr. Dodge. Portions of this documentation were copied and pasted from previous office visit notes in order to provide a cohesive continuity of the history. The note has been reviewed and edited and updated as necessary. 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 HPI: The patient is an 83 year-old female with history of arrhythmia, status post pacemaker and radiofrequency ablation. Patient had been on Xarelto for atrial fibrillation since 2014. She was seen by her fermentation scientist Dr. Root for increased fatigue and was [...] taking aspirin along with Xarelto. Has h/o IA (PCI with stents), atrial fibrillation (on rivaroxaban), [...] Review (MPA) Reviewed by Yong Altamirano MD [place] Free, Serum 3.3 - 19.4 mg/L 70.4 [...] she is hypoxemic. Plan: -To ED at [facility]. -Spoke to Dr. Dodge. Portions of this documentation were copied and pasted from previous office visit notes in order to provide a cohesive continuity of the history. The note has been reviewed and edited and updated as necessary. I spent a total of 20 minutes on the date of the service which included preparing to see the patient, tpbj-ty-jybx patient care, completing clinical documentation, obtaining and/or reviewing separately obtained history, performing a medically appropriate examination, counseling and educating the pat ient/family/caregiver, ordering medications, tests, or procedures, communicating with other HCPs (not separately reported), and communicating results to the patient/family/caregiver. Elizabet Baker DO documented in this encounterDoctors Hospital09-13-2024 Telephone encounter Note * Telephone Encounter [...] SYMPTOMS: Denies other symptoms. Protocols used: Breathing Odxvphpmjx-OYMEH-ML [facility]09-13-2024 Miscellaneous Notes* Telephone Encounter - Shara [...] SYMPTOMS: Denies other symptoms. Protocols used: Breathing Ncpkfqksmp-YHXVR-NY documented in this encounterDoctors Hospital08-22-2024 Telephone encounter Note * Telephone Encounter - Yovana Painter APRN.CNP - 03/03/2024 11:04 AM EDT The following approved medication requests have been transmitted electronically. Requested Prescriptions Pending Prescriptions Disp Refills omeprazole (PRILOSEC) 40 mg capsule 90 capsule 3 Sig: Take 1 capsule by mouth once daily. Yovana Painter APRN.CNP [facility]08-22-2024 Miscellaneous Notes* Telephone Encounter - Yovana Painter APRN.CNP - 03/03/2024 11:04 AM EDT The following approved medication requests have been transmitted electronically. Requested Prescriptions Pending Prescriptions Disp Refills omeprazole (PRILOSEC) 40 mg capsule 90 capsule 3 Sig: Take 1 capsule by mouth once daily. Yovana Painter APRN.CNP * Telephone Encounter - Gudelia Braxton - 03/03/2024 9:44 AM EDT Prescription [...] Take 1 capsule by mouth once daily. Gudelia Peraza March 03, 2024 9:45 AM documented in this encounterDoctors Hospital08-22-2024 Telephone encounter Note * Telephone Encounter - Gudelia Braxton - 03/03/2024 9:44 AM EDT Prescription [...] Take 1 capsule by mouth once daily. Gudelia Peraza March 03, 2024 9:45 AM [facility] Telephone encounter Note* Telephone Encounter - Shara Bailey - 03/03/2024 9:39 AM EDT Spoke with patient and scheduled. Shara Bailey [facility]08-22-2024 Miscellaneous Notes* Telephone Encounter - Shara Bailey - 03/03/2024 9:39 AM EDT Spoke with patient and scheduled. Shara Bailey * Telephone Encounter - Belle Fajardo LPN - 03/03/2024 8:05 AM EDT Patient is aware of all information. PSS- please contact patient to schedule an OV as directed below. Belle Fajardo LPN * Telephone Encounter - Belle Fajardo LPN - 03/03/2024 8:05 AM EDT ----- Message from Elizabet Baker DO sent at 03/03/2024 6:58 AM EDT ----- Bone x-rays showed only the fracture of T8. Keep CT as scheduled. Follow up with me about a week after the CT. documented in this encounterDoctors Hospital08-22-2024 Telephone encounter Note * Telephone Encounter - Belle Fajardo LPN - 03/03/2024 8:05 AM EDT Patient is aware of all information. PSS- please contact patient to schedule an OV as directed below. Belle Fajardo LPN [facility] Telephone encounter Note* Telephone Encounter - Belle Fajardo LPN - 03/03/2024 8:05 AM EDT ----- Message from Elizabet Baker DO sent at 03/03/2024 6:58 AM EDT ----- Bone x-rays showed only the fracture of T8. Keep CT as scheduled. Follow up with me about a week after the CT. 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 HPI: The patient is an 83 year-old female with history of arrhythmia, status post pacemaker and radiofrequency ablation. Patient had been on Xarelto for atrial fibrillation since 2014. She was seen by her fermentation scientist Dr. Root for increased fatigue and was [...] taking aspirin along with Xarelto. Has h/o IA (PCI with stents), atrial fibrillation (on rivaroxaban), [...] which included preparing to see the patient, dvyx-cq-xfmn patient care, completing clinical documentation, obtaining and/or reviewing separately obtained history, performing a medically appropriate examination, counseling and educating the pat ient/family/caregiver, ordering medications, tests, or procedures, communicating with other HCPs (not separately reported), and communicating results to the patient/family/caregiver. Elizabet Baker DO documented in this encounterDoctors Hospital08-09-2024 Telephone encounter Note * Telephone Encounter - Victor M Rocha MD - 02/19/2024 1:56 PM EDT OK to refill as ordered Victor M Rocha MD [facility]08-09-2024 Miscellaneous Notes* Telephone Encounter - Victor [...] 19, 2024 11:19 AM documented in this encounterDoctors Hospital08-09-2024 Telephone encounter Note * Telephone Encounter [...] Phan Peraza February 19, 2024 11:19 AM [facility] Work Phone: [phone] History of Present illness Narrative* Dani Canas PA - 02/16/2024 12:18 PM EDT Images from the original note were not included. This note was created using Superflyter. Subjective Gudelia Gupta is a 83 year old female. [...] rice bag that you warm up in [facility] for her pain. She states this does [...] her shirt. She has been putting some eylx-ruq-rjdwrjo ointment on it and bandages. Has not tried anything else for symptoms. No fevers. No other complaint. PAST MEDICAL HISTORY No date: Coronary atherosclerosis of unspecified type of vessel, [place] or graft Comment: Stent x , 2010 No date: Depressive disorder, not elsewhere [...] ABLATION W/ EP COMPLETE Comment: Dr. Buitrago 1984: TOTAL ABDOMINAL HYSTERECT W/WO RMVL TUBE OVARY [...] both eyes twice daily. blood sugar diagnostic (ProFibrixUCH VERIO TEST STRIPS) test strip TEST BLOOD [...] evaluation. LUIS FELIPE Akins documented in this encounterDoctors Hospital07-22-2024 Instructions* Patient Instructions* Kandi Woody MA - 02/01/2024 1:01 PM EDT Reduce the Glimepiride (amaryl) to 2 mg daily. Cut the 4 mg pill in half. Notify office if you continued to have the low blood sugar symptoms. Follow up in 6 months or sooner if needed. documented in this encounterDoctors Hospital07-22-2024 History of Present illness Narrative* Victor M Rocha MD - 02/01/2024 12:40 PM EDT Chief Complaint Patient presents with: F/U 3 Month HPI Gudelia Gupta is a 83 year old female [...] last visit. HTN & A-fib: Follows with [facility]. Has pacemaker. Denies checking her [...] Coronary atherosclerosis of unspecified type of vessel, [place] or graft Stent x 2010 Depressive disorder, [...] HYSTERECT W/WO RMVL TUBE OVARY 1985 Hysterectomy, RSOALIO W TRY ATRIOGRM HP Family History FAMILY [...] 01/27/2024 1.15 Monocytes % 01/27/2024 11.6 Abs [place] 01/27/2024 0.68 Eosinophils % 01/27/2024 2.7 Abs [...] 12/23/2023 1.41 Monocytes % 12/23/2023 10.5 Abs [place] 12/23/2023 0.69 Eosinophils % 12/23/2023 2.6 Abs [...] Past Histories independently gathered by the clinical supportive employment case manager and the remaining scribed note accurately describes [...] PM. Kandi Woody MA documented in this encounterDoctors Hospital07-07-2024 Telephone encounter Note * Telephone Encounter - Rosalba Casey MA - 01/17/2024 8:27 AM EDT Pt was notified of the results. Pt verbalized understanding. Rosalba Casey MA [facility]07-07-2024 Miscellaneous Notes* Telephone Encounter - Rosalba [...] follow-up with primary care. documented in this encounterDoctors Hospital07-07-2024 Telephone encounter Note * Telephone Encounter - Kortney Ruiz APRN.CNP - 01/17/2024 8:12 AM EDT Patient just had normal jaspreet in her urine. No significant bacterial growth in urine culture patient can continue antibiotic get it if it is helping. If patient's symptoms are persistent patient needs to follow-up with primary care. [facility] Work Phone: 1(454) 413-332507-05-2024 History of Present illness Narrative* Daniel Bucio [...] CAPSULE Daniel Bucio MD documented in this encounterDoctors Hospital06-21-2024 History of Present illness Narrative* Brittny Rivero RN - 01/01/2024 3:30 PM EDT TCM Home Visit Referral Source of Stratification: [facility] Hospital Admission Status: Discharged Readmission Risk Score: n/a Patient's zip code: [address] Is zip code within program service area: [...] have Colitis,having hard time with BM, advise senjean zaragoza, taken Miralax this am, advised another dose [...] no issues, stable SUMMARY: Discharge Network Status: Ajx-fp-Qhaumni (OON) Discharge Pt discharged from [facility] . Admitted for: Sob,Resp Failure Pacemaker check Dyspnea / hypoxemia Decompensated CHF DM / CKD / ASCVD Contact made with patient: Yes Hi my name is Brittny Rivero RN and I am calling from the [facility] on behalf of your PCP, Victor [...] like to speak with a social work call center team leader to help give you support for any [...] I will send your request to a radiology scheduler who will contact and assist you with [...] 01, 2024 4:39 PM documented in this encounterDoctors Hospital06-21-2024 Telephone encounter Note * Telephone Encounter - Shara Bailey - 01/01/2024 11:58 AM EDT Spoke with patient and scheduled as directed. Shara Bailey [facility]06-21-2024 Miscellaneous Notes* Telephone Encounter - Shara Bailey - 01/01/2024 11:58 AM EDT Spoke with patient and scheduled as directed. Shara Bailey * Telephone Encounter - Vesta Jett - [...] Naomi Chase LPN * Telephone Encounter - Elizabet Baker DO - 12/28/2023 6:15 PM EDT Iron and hemoglobin came up with iron infusions. Please schedule for CBC/iron studies/CMP then OV with me in about 8 weeks. documented in this encounterDoctors Hospital06-18-2024 Telephone encounter Note * Telephone Encounter - Vesta Jett - 12/29/2023 8:39 AM EDT 1st attempt. Unable to leave message. Voicemail not set up. No My chart. Patient to schedule - -CBC/IRON STUDIES/CMP then OV with Dr. Baker in about 8 weeks [facility] Work Phone: [phone]) 821-962706-18-2024 Telephone encounter Note* Telephone Encounter - Naomi Chase LPN - 12/29/2023 8:10 AM EDT Please schedule for CBC/iron studies/CMP then OV with Dr. Baker in about 8 weeks. Left detailed message on identified voicemail concerning recent lab results. Informed PSS will be reaching out to her to get F/U scheduled. Naomi Chase LPN [facility]06-17-2024 Telephone encounter Note* Telephone Encounter - Elizabet Baker DO - 12/28/2023 6:15 PM EDT Iron and hemoglobin came up with iron infusions. Please schedule for CBC/iron studies/CMP then OV with me in about 8 weeks. [facility] Work Phone: 1(648) 677-694206-13-2024 History of Present illness Narrative* Victor M Rocha MD - 12/24/2023 3:40 PM EDT Transitional Care Management TCM Eligibility Documentation Program: Transitional Care Management Status: Identified Start Date: 12/17/2023 Responsible Staff: Paulo-Brittny Rodriguez RN Discharge date: 12/17/2023 (Program start) Date of initial contact: Initial contact Target status: Not completed Provider Documentation Gudelia Gupta is a 83 year old female here today for a follow up from recent hospitalization. I have reviewed the patient's hospital course including discharge summary, discharge medications , and follow up needs with the patient and any family members present at today's visit. HPI 7 day TCM Pt was admitted to [facility] on 12/14/23 after presenting to ER with [...] in quite some time. Below copied from Evgen: [facility] Narrative Medical decision making narrative: HISTORY OF [...] current medications 2. Coronary artery disease involving [place] coronary artery of [place] heart without angina pectoris- ICD9: 414.01, ICD10: I25.10 - NITROGLYCERIN 0.4 MG SUBLINGUAL TABLET 3. Atherosclerotic heart disease of [place] coronary artery with other forms of angina [...] Victor M Rocha MD documented in this encounterDoctors Hospital06-12-2024 Telephone encounter Note * Telephone Encounter - Shara Jung RN - 12/23/2023 2:13 PM EDT Pt was admitted for CHF. States she has a lot of new meds but is unable to state what they are and what dosage. Advised pt to take new meds to PCP appt scheduled for tomorrow so they are able to update med list. Pt stated understanding. [facility]06-12-2024 Miscellaneous Notes* Telephone Encounter - Shara [...] list. Pt stated understanding. documented in this encounterDoctors Hospital06-03-2024 Telephone encounter Note * Telephone Encounter - Melissa Doherty - 12/14/2023 2:13 PM EDT Cancelled as directed. Melissa Julian [facility]06-03-2024 Miscellaneous Notes* Telephone Encounter - Melissa Doherty - 12/14/2023 2:13 PM EDT Cancelled as directed. Melissa Julian * Telephone Encounter - Marimar Gutierrez LPN - 12/14/2023 1:49 PM EDT Admitted to ICU [facility]. Please cancel. Marimar Gutierrez LPN * Telephone Encounter - Elizabet Baker DO - 12/14/2023 1:32 PM EDT Noted. Thank you. Elizabet Baker DO * Telephone Encounter - Vesta Jett - 12/14/2023 9:54 AM EDT Keila with [facility] called stating they are sending patient to [facility]. Patient is scheduled today for labs and iron. She states patient may not be here for appointments. Left appointments on schedule for now. documented in this encounterDoctors Hospital06-03-2024 Telephone encounter Note * Telephone Encounter - Marimar Gutierrez LPN - 12/14/2023 1:49 PM EDT Admitted to ICU [facility]. Please cancel. Marimar Gutierrez LPN [facility]06-03-2024 Telephone encounter Note* Telephone Encounter - Elizabet Baker DO - 12/14/2023 1:32 PM EDT Noted. Thank you. Elizabet Baker DO [facility] Work Phone: 1(635) 645-364406-03-2024 Telephone encounter Note* Telephone Encounter - Vesta Jett - 12/14/2023 9:54 AM EDT Keila with [facility] called stating they are sending patient to [facility]. Patient is scheduled today for labs and iron. She states patient may not be here for appointments. Left appointments on schedule for now. [facility] Work Phone: 1(878) 535-401105-31-2024 Nurse Note* Shara Jung RN - 12/11/2023 2:50 PM EDT Pt advised to f/u with fermentation scientist regarding low BP. States she has a BP cuff at home but rarely uses it. Advised to start monitoring twice a day and keep a log. Contact Dr. Root's office with update. Pt stated understanding. [facility]05-31-[facility]24 Nurse Note* Shara Jung RN - 12/11/2023 2:50 PM EDT Pt advised to f/u with fermentation scientist regarding low BP. States she has a BP cuff at home but rarely uses it. Advised to start monitoring twice a day and keep a log. Contact Dr. Root's office with update. Pt stated understanding. documented in this encounterDoctors Hospital05-17-2024 Telephone encounter Note * Telephone Encounter - Cesar Sesay - 11/27/2023 9:42 AM EDT The patient is active with Medicare A & B along with [place] [employer]. The patient's financial responsibility should be [...] Navigator intervention is needed at this time. [facility]-17-2024 Miscellaneous Notes* Telephone Encounter - Cesar Sesay - 11/27/2023 9:42 AM EDT The patient is active with Medicare A & B along with [place] [employer]. The patient's financial responsibility should be [...] needed at this time. documented in this encounterDoctors Hospital05-14-2024 Telephone encounter Note * Telephone Encounter - Pam Hollingsworth LISW - 11/24/2023 12:33 PM EDT Pt noted on [place] 1st time treatment report. Pt has a non-oncology regimen. No social work followup indicated. THANH Edmond-S [facility]05-14-2024 Miscellaneous Notes* Telephone Encounter - Pam Hollingsworth LISW - 11/24/2023 12:33 PM EDT Pt noted on [facility] 1st time treatment report. Pt has a non-oncology regimen. No social work followup indicated. THANH Edmond-Erich documented in this encounterDoctors Hospital05-13-2024 History of Present illness Narrative* Victor M Rocha MD - 11/23/2023 2:40 PM EDT Chief Complaint Patient presents with: Pain, Back HPI Gudelia Gupta is a 83 year old female [...] Coronary atherosclerosis of unspecified type of vessel, [place] or graft Stent x 2010 Depressive disorder, [...] Vaccine( - 2022- season) due on 10/29/2024 HbA1C [...] I27.21 Stable 5. Atherosclerotic heart disease of [place] coronary artery with other forms of angina pectoris (HCC) - ICD9: 414.01, 413.9, ICD10: I25.118 Stable 6. Stage 3b chronic kidney disease (HCC) - ICD9: 585.3, ICD10: N18.32 Monitor prn Follow up prn; call if not iproved with muscle relaxant and would consider US to evaluate right side I agree with the Chief Complaint, ROS, and Past Histories independently gathered by the clinical supportive employment case manager and the remaining scribed note accurately describes [...] PM. Kandi Woody MA documented in this encounterDoctors Hospital05-08-2024 Telephone encounter Note * Telephone Encounter - Shara Bailey - 11/18/2023 12:46 PM EDT Orders linked to appointments. Shara Bailey [facility]05-08-2024 Miscellaneous Notes* Telephone Encounter - Shara Bailey - 11/18/2023 12:46 PM EDT Orders linked to appointments. Shara Bailey * Telephone Encounter - Elizabet Baker DO - 11/18/2023 12:31 PM EDT They are in [place]. Elizabet Baker DO * Telephone Encounter - Shara Bailey - 11/18/2023 10:28 AM EDT Spoke with patient and scheduled. Please file [place] Orders. Shara Bailey * Telephone Encounter - Belle Fajardo LPN - 11/18/2023 10:15 AM EDT PSS- please schedule patient for 5 doses of iron sucrose. Also, with the last dose she will need CBC/RETIC and IRON STUDIES. Belle Fajardo LPN documented in this encounterDoctors Hospital05-08-2024 Telephone encounter Note * Telephone Encounter - Elizabet Baker DO - 11/18/2023 12:31 PM EDT They are in [place]. Elizabet Baker DO [facility] Work Phone: 1(164) 547-117805-08-2024 Telephone encounter Note* Telephone Encounter - Shara Bailey - 11/18/2023 10:28 AM EDT Spoke with patient and scheduled. Please file [place] Orders. Shara Bailey [facility]05-08-2024 Telephone encounter Note* Telephone Encounter - Belle Fajardo LPN - 11/18/2023 10:15 AM EDT PSS- please schedule patient for 5 doses of iron sucrose. Also, with the last dose she will need CBC/RETIC and IRON STUDIES. Belle Fajardo LPN [facility]05-07-2024 History of Present illness Narrative* Elizabet Baker DO - 11/17/2023 11:35 AM EDT [...] since 2014. She was seen by her fermentation scientist Dr. Root for increased fatigue and was [...] taking aspirin along with Xarelto. Has h/o IA (PCI with stents), atrial fibrillation (on rivaroxaban), [...] which included preparing to see the patient, cefl-id-vare patient care, completing clinical documentation, obtaining and/or reviewing separately obtained history, performing a medically appropriate examination, counseling and educating the pat ient/family/caregiver, ordering medications, tests, or procedures, communicating with other HCPs (not separately reported), and communicating results to the patient/family/caregiver. Elizabet Baker DO documented in this encounterDoctors Hospital04-19-2024 History of Present illness Narrative* Victor M Rocha MD - 10/30/2023 10:40 AM EDT Chief Complaint Patient presents with: 6 Month Exam HPI Gudelia Gupta is a 83 year old female [...] chest pains, dizziness, or SOB. Follows with [facility], Cardio. Has pacemaker. Taking Xarelto [...] is sleeping well at night. Lipid/CAD: Reports snf watching her diet. Denies any exercise. Doesn't [...] Coronary atherosclerosis of unspecified type of vessel, [place] or graft Stent x 2010 Depressive disorder, [...] both eyes twice daily. blood sugar diagnostic (ProFibrixUCH VERIO TEST STRIPS) test strip TEST BLOOD [...] 10/23/2023 1.98 Monocytes % 10/23/2023 10.5 Abs [place] 10/23/2023 1.01 (H) Eosinophils % 10/23/2023 2.8 [...] 13 Estimated Glomerular Shane* 10/23/2023 32 (L) [place] Free, Serum 10/23/2023 80.2 (H) Lambda Free, [...] ICD9: 273.1, ICD10: D47.2 Follow up with Washing Machine Rep[employer]r 6. 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 7. Iron deficiency anemia, unspecified iron deficiency anemia type - ICD9: 280.9, ICD10: D50.9 Follow up with [employer] Check labs in 3 months 8. Paroxysmal [...] ICD9: 780.79, ICD10: R53.83 Follow up with Washing Machine Rep[employer]r Increase Synthroid to 100 mg daily 12. Generalized weakness - ICD9: 780.79, ICD10: R53.1 Follow up with Washing Machine Rep[employer]r Increase Synthroid to 100 mg daily 13. SOB (shortness of breath) - ICD9: 786.05, ICD10: R06.02 Follow up with [employer]ashing Machine Rep[employer]r Follow up in 3 months with labs prior. I agree with the Chief Complaint, ROS, and Past Histories independently gathered by the clinical supportive employment case manager and the remaining scribed note accurately describes [...] AM. Kandi Woody MA documented in this encounterDoctors Hospital02-19-2024 Miscellaneous Notes* Telephone Encounter - Carlos [...] you. Vania Walters LPN. documented in this encounterDoctors Hospital12-11-2023 Miscellaneous Notes* Telephone Encounter - Victor [...] please advise the patient. documented in this encounterDoctors Hospital12-11-2023 Instructions* Patient Instructions* Ana Kebede APRN.CNP - 06/22/2023 11:59 AM EST Call me and let me know what antibiotic you are taking documented in this encounterDoctors Hospital12-11-2023 History of Present illness Narrative* Ana Kebede APRN.CNP - 06/22/2023 11:32 AM EST 06/22/2023 Patient [...] Coronary atherosclerosis of unspecified type of vessel, [place] or graft Stent x 2010 Depressive disorder, [...] N18.32 - BASIC METABOLIC PNL Ana Kebede APRN.YARN DUMPER Prescription instructions reviewed with patient as applicable. [...] which included preparing to see the patient, vilr-qw-ossu patient care, completing clinical documentation, obtaining and/or reviewing separately obtained history, performing a medically appropriate examination, counseling and educating the pat ient/family/caregiver, and ordering medications, tests, or procedures. documented in this encounterDoctors Hospital11-24-2023 Instructions* Patient Instructions* Beverley Reed APRN.DICK - 06/05/2023 3:56 PM EST ASSESSMENT/PLAN: 1. [...] Discussed expected course of illness Beverley Reed APRN.DICK documented in this encounterDoctors Hospital11-24-2023 History of Present illness Narrative* Beverley Reed APRN.DICK - 06/05/2023 12:26 PM EST Subjective The history is provided by the patient. Gudelia Gupta is a 83 year old female [...] Coronary atherosclerosis of unspecified type of vessel, [place] or graft Stent x 2010 Depressive disorder, [...] both eyes twice daily. blood sugar diagnostic ([employer] VERIO TEST STRIPS) test strip TEST BLOOD SUGAR ONCE DAILY lancets (ONE TOUCH DELTriReme Medical) 33 gauge Test blood sugar(s) 1 daily. [...] Discussed expected course of illness Beverley Reed APRN.YARN DUMPER documented in this encounterDoctors Hospital10-17-2023 Instructions* Patient Instructions* Cara Herring Ma - 04/28/2023 10:54 AM EDT Bowels - To help with constipation use Miralax. Use as directed on bottle. Sleep - Can increase Buspar 15 mg to 3 times per day to see if this helps with sleep. documented in this encounterDoctors Hospital10-17-2023 History of Present illness Narrative* Victor M Rocha MD - 04/28/2023 10:40 AM EDT Chief Complaint Patient presents with: F/U 6 Month HPI Gudelia Gupta is a 82 year old female [...] chest pains, dizziness, or SOB. Follows with [facility], Cardio. Taking HCTZ 12.5 mg [...] 1 year from May 2022. Lipid/CAD: Reports snf watching her diet. Denies any exercise. Doesn't [...] Coronary atherosclerosis of unspecified type of vessel, [place] or graft Stent x 2010 Depressive disorder, [...] Past Histories independently gathered by the clinical supportive employment case manager and the remaining scribed note accurately describes [...] AM. Cara Herring Ma documented in this encounterDoctors Hospital06-24-2023 Miscellaneous Notes* Telephone Encounter - Yovana [...] you. Jessica Figueroa RN documented in this encounterDoctors Hospital06-01-2023 History of Present illness Narrative* Victor M Rocha MD - 12/11/2022 2:20 PM EDT Images from the original note were not included. Chief Complaint Patient presents with: Hospital F/U: HPI Gudelia Gupta is a 82 year old female who presents here today for ER Follow Up.. Pt presented to [facility] ER on 12/04/22 with c/o abdominal pain. [...] wheezing intermittently. No SOB. Below copied from Evgen: Chief Complaint: Abd Pain Narrative Narrative: Patient is an 82-year-old female with a past medical history of CAD, IA, on Eliquis for atrial fibrillation, hyperlipidemia who presents to the emergency department for lower abdominal pain that began at approximately 11 AM. Patient states she was baking bread when she developed lower abdominal pain like she had to go to the bathroom, sweatiness. She did get concerned because this is how she feltduring her first IA in 2009. Patient also states over the [...] Patient's currently has no history of ACS, IA is a initial troponin was negative, repeat [...] Coronary atherosclerosis of unspecified type of vessel, [place] or graft Stent x 2010 Depressive disorder, [...] History Tobacco Use Smoking status: Former Years: .00 Types: Cigarettes Quit date: 07/13/1981 Years since [...] current medications. 9. Atherosclerotic heart disease of [place] coronary artery with other forms of angina pectoris (HCC) - ICD9: 414.01, 413.9, ICD10: I25.118 Negative workup in hospital Continue current medications. Follow up as needed. Update Office if symptoms worsen. Follow up prn I agree with the Chief Complaint, ROS, and Past Histories independently gathered by the clinical supportive employment case manager and the remaining scribed note accurately describes [...] PM. Cara Herring Ma documented in this encounterDoctors Hospital06-01-2023 History of Past illness Narrative* Problem [...] of this encounter (statuses as of 10/30/2023) [facility] History of Present illness Narrative* Victor M Rocha MD - 10/24/2022 10:40 AM EDT Chief Complaint Patient presents with: 6 Month Exam HPI Gudelia Gupta is a 82 year old female [...] that lasts very briefly. Pt follows with [facility]. On current regimen of Norvasc 10 mg once daily, Losartan 100 mg once daily, HCTZ 12.5 mg daily and Toprol XL 25 mg daily. CAD/Lipid: Follows with [facility], has pacemaker. On current regimen [...] Coronary atherosclerosis of unspecified type of vessel, [place] or graft Stent x 2010 Depressive disorder, [...] both eyes twice daily. blood sugar diagnostic ([employer] VERIO TEST STRIPS) test strip TEST BLOOD [...] 09/03/2022 1.66 Monocytes % 09/03/2022 9.0 Abs [place] 09/03/2022 0.75 Eosinophils % 09/03/2022 3.1 Abs [...] PANEL BASIC 3. Coronary artery disease involving [place] coronary artery of [place] heart without angina pectoris- ICD9: 414.01, ICD10: [...] Past Histories independently gathered by the clinical supportive employment case manager and the remaining scribed note accurately describes [...] AM. Kandi Woody Ma documented in this encounterDoctors Hospital02-28-2023 History of Present illness Narrative* Ida Magaña MD - 09/09/2022 12:17 PM EST Images from the original note were not included. SERVICE DATE: September 09, 2022 CHIEF COMPLAINT: Gudelia Gupta is a 82 year old female [...] both eyes twice daily. blood sugar diagnostic (Nextwave SoftwareTOUCH VERIO TEST STRIPS) test strip TEST BLOOD [...] that has been stable around 1 g. [place] lambda ratio has been consistently normal. Not expected to progress into multiple myeloma or related neoplasm. Nevertheless recommend continued hematologic/oncologic yearly surveillance. The patient was able to ask questions and these were answered in detail. Ida Magaña MD cc: Viviana Rocha MD documented in this encounterDoctors Hospital02-22-2023 Miscellaneous Notes* Telephone Encounter - Sole [...] draw and call patient. documented in this encounterDoctors Hospital11-21-2022 Miscellaneous Notes* Telephone Encounter - Carlos [...] notify patient. Dorie Coffey documented in this encounterDoctors Hospital08-22-2022 Miscellaneous Notes* Telephone Encounter - Victor [...] notify patient. Dorie Coffey documented in this encounterDoctors Hospital07-05-2022 Instructions* Patient Instructions* Kandi Woody Ma [...] the new dosage arrives. documented in this encounterDoctors Hospital07-05-2022 History of Present illness Narrative* Victor M Rocha MD - 01/14/2022 9:40 AM EDT Chief Complaint Patient presents with: F/U 3 Month HPI Gudelia Gupta is a 81 year old female [...] [facility]. [facility] and was then sent to Ortho Dr. Cote back in 2017. Had xrays done at that time. She is not interested in having surgery on the knee. Past medical history, appointments, medications, allergies reviewed. Previous Medical History PAST MEDICAL HISTORY Diagnosis Date Coronary atherosclerosis of unspecified type of vessel, [place] or graft Stent x 2010 Depressive disorder, [...] both eyes twice daily. blood sugar diagnostic (Nextwave SoftwareTOUCH VERIO TEST STRIPS) test strip TEST BLOOD SUGAR ONCE DAILY omeprazole (PRILOSEC) 40 mg capsule Take 1 capsule by mouth once daily. lancets (ONE TOUCH DELICA) 33 gauge Test [...] weight loss. 3. Coronary artery disease involving [place] coronary artery of [place] heart without angina pectoris- ICD9: 414.01, ICD10: [...] Past Histories independently gathered by the clinical supportive employment case manager and the remaining scribed note accurately describes [...] AM. Kandi Woody Ma documented in this encounterDoctors Hospital04-01-2022 History of Present illness Narrative* Victor M Rocha MD - 10/11/2021 11:00 AM EDT Chief Complaint Patient presents with: 6 Month Exam HPI Gudelia Gupta is a 81 year old female [...] for eye exams. She was seen at [facility] last year. She was on glimepiride in [...] Coronary atherosclerosis of unspecified type of vessel, [place] or graft Stent x 2010 Depressive disorder, [...] EMPTY STOMACH FOR THYROID blood sugar diagnostic (Nextwave SoftwareTOUCH VERIO TEST STRIPS) test strip TEST BLOOD SUGAR ONCE DAILY omeprazole (PRILOSEC) 40 mg capsule Take 1 capsule by mouth once daily. amitriptyline (ELAVIL) 25 mg tablet Take 1 tablet by mouth daily at bedtime. lancets (ONE TOUCH DELTriReme Medical) 33 gauge Test blood sugar(s) 1 daily. [...] 09/02/2021 Reviewed by Kristy Quiles MD, PhD. ([id number]) WBC 09/02/2021 6.68 RBC 09/02/2021 4.33 Hemoglobin 09/02/2021 13.3 Hematocrit 09/02/2021 39.5 MCV 09/02/2021 91.2 MCH 09/02/2021 30.7 MCHC 09/02/2021 33.7 RDW-CV 09/02/2021 12.9 Platelet Count 09/02/2021 283 MPV 09/02/2021 10.3 Neut% 09/02/2021 65.9 Abs Neut (ANC) 09/02/2021 4.38 Lymph% 09/02/2021 21.6 Abs Lymph 09/02/2021 1.44 [place]% 09/02/2021 9.9 Abs [place] 09/02/2021 0.66 Eosin% 09/02/2021 2.2 Abs Eosin [...] Past Histories independently gathered by the clinical supportive employment case manager and the remaining scribed note accurately describes [...] AM. 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 Unspecified gastritis and ga stroduodenitis without mention of hemorrhage 10/04/2008 08/13/2011 Overview: No alcohol or tobacco use as of 09-18 Using daily Zantac as of 09-18 H pylori 5 (positive if greater than 0.9) in 6: rec Prevpac Routine general medical exam ination at a health care facility 10/04/2008 08/12/2010 Overview: Pt declined colon testing as of 09-18 Mammo negative in 4-09 Contact dermatitis and other eczema, due to unspecified cause 10/17/2005 08/12/2010 documented as of this encounter (statuses as of 01/14/2022) [facility] Narrative* Problem [...] of this encounter (statuses as of 03/03/2022) [facility] Narrative* Problem [...] of this encounter (statuses as of 06/02/2022) [facility] Narrative* Problem [...] of this encounter (statuses as of 09/03/2022) [facility] Narrative* Problem Noted Date Resolved Date 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 Unspecified gastritis and ga stroduodenitis without mention of hemorrhage 10/04/2008 08/13/2011 Overview: No alcohol or tobacco use as of 09-18 Using daily Zantac as of 09-18 H pylori 5 (positive if greater than 0.9) in 6: rec Prevpac Routine general medical exam ination at a health care facility 10/04/2008 08/12/2010 Overview: Pt declined colon testing as of 09-18 Mammo negative in 4-09 Contact dermatitis and other eczema, due to unspecified cause 10/17/2005 08/12/2010 documented as of this encounter (statuses as of 09/09/2022) [facility] Narrative* Problem Noted Date Resolved Date 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 Unspecified gastritis and ga stroduodenitis without mention of hemorrhage 10/04/2008 08/13/2011 Overview: No alcohol or tobacco use as of 09-18 Using daily Zantac as of 09-18 H pylori 5 (positive if greater than 0.9) in 6: rec Prevpac Routine general medical exam ination at a health care facility 10/04/2008 08/12/2010 Overview: Pt declined colon testing as of 09-18 Mammo negative in 4-09 Contact dermatitis and other eczema, due to unspecified cause 10/17/2005 08/12/2010 documented as of this encounter (statuses as of 10/25/2022) [facility] Narrative* Problem [...] of this encounter (statuses as of 12/11/2022) [facility] Narrative* Problem [...] of this encounter (statuses as of 01/05/2023) [facility] N[facility]ative* Problem [...] of this encounter (statuses as of 04/28/2023) [facility] N[facility]ative* Problem [...] of this encounter (statuses as of 06/05/2023) [facility] Narrative* Problem [...] of this encounter (statuses as of 06/23/2023) [facility] Narrative* Problem [...] of this encounter (statuses as of 06/23/2023) [facility] Narrative* Problem [...] of this encounter (statuses as of 06/25/2023) [facility] Narrative* Problem [...] of this encounter (statuses as of 08/31/2023) [facility]* Diagnosis Onset Date Resolution Status Longstanding persistent atrial fibrillation chronic Sick sinus syndrome chronic Presence of cardiac pacemaker April 26, 2015 resolved Essential (primary) hypertension chronic Hyperlipidemia chronic Longstanding persistent atrial fibrillation chronic History of coronary artery stent placement September, resolved Presence of cardiac pacemaker April 26, [address] [facility] Work Phone: 1(886) 533-225710-15-2015 Evaluation note* Diagnosis Onset Date Resolution Status Longstanding persistent atrial fibrillation chronic Sick sinus syndrome chronic Presence of cardiac pacemaker April 26, [address] [facility] Work Phone: 1(505) 761-124303-01-2011 Evaluation note* Diagnosis Onset Date Resolution Status Essential (primary) hypertension chronic Hyperlipidemia chronic Longstanding persistent atrial fibrillation chronic History of coronary artery stent placement September, resolved Presence of cardiac pacemaker April 26, [address] [facility] Work Phone: Consult note Author [facility] Note Date/Time April 04, 2025 12:37pm [facility] Medical Records Department [address] [place] [address] Pre-Anesthesia Evaluation 04/04/25 1221 MR#: [id number] Acct: [id number] Name: GUDELIA GUPTA Rep #:[id number] : 1940 84 From: Niranjan Turner MD PCP: Dr. Victor M Rocha MD Status:AD M IN Y Race: C Location: [place] [address] ASA Classification* ASA Classification ASA Classification: 3 Assessment & Plan Anesthesia* Anesthesia Assessment Anesthesia Assessment: Discussed sedation and/or anesthesia options, risks, benefits, and alternatives with patient/parents/legal guardian/POA. Questions invited. The patient/parents/legal guardian/POA seems to understand and agrees to proceedwith anesthesia plan. Reviewed the physical assessment, medical history, allergy history and patient home medications list prior to surgery/procedure/anesthetic and documented any changes. Performed airway and anesthesia risk assessments. Anesthesia Type Anesthesia Type: General History Source History Obtained from:: Patient and Chart Anesthesia Focused Assessment* Temperature: 97.8 F Pulse Rate: 80 Blood Pressure: 129/93 Respiratory Rate: 18 Pulse Ox: 89 Oxygen Delivery Method: Room Air Oxygen Flow Rate (L/min): 3 Airway Assessment Mouth opens: >3 cm Mallampati Score: III Teeth Condition: Dentures (Upper dentures will come out.) and Missing (Missing several teeth on the bottom. The rest are tight.) Neck Range of motion (ROM): Limited ROM (Severe Restriction) Labs Anesthesia Preop lab: CBC WBC, (4.4-11.0) 9.5 K/mm3 Today, 04:40 RBC, (4.2-5.4) 3.87 M/mm3 L Today, 04:40 Hgb, (12.0-15.0) 11.3 g/dL L Today, 04:40 Hct, (37-47) 35.4 % L Today, 04:40 Plt Count, (150-450) 211 K/mm3 Today, 04:40 CHEMISTRY Potassium, (3.3-5.1) 4.5 mmol/L Today, 04:40 Sodium, (133-145) 136 mmol/L Today, 04:40 Magnesium, (1.5-2.2) 2.2 mg/dL 02/08/25, 19:58 Phosphorus, (2.7-4.5) 3.4 mg/dL 02/10/25, 06:24 BUN, (4-19) 18 mg/dL Today, 04:40 Creatinine, (0.70-1.20) 1.34 mg/dL H Today, 04:40 Glucose, (70-99) 118 mg/dL H Today, 04:40 POC Glucose, (74-106) 137 mg/dL H Today, 10:56 TSH, (0.300-4.200) 3.080 uIU/mL 02/08/25, 19:58 COAG PT, (11.7-14.9) 24.1 SECONDS H 04/03/25, 14:35 Pre-Assessment Diagnosis/Proposed Procedure Planned Operative Procedure(s): Left hemiarthroplasty hip, cemented Anesthesia History 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 When Was Last Pacemaker Check 02/06/25 04/03/25 21:46 QUESTION #4 FULL TEXT: You/Your Family Experience fever (hyperthermia) with Anesthesia Last Oral Intake Last Oral intake: Last Oral Intake NPO since 0000 Meds taken in AM with sips of water? 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 decorator Female HX of Motion Sickness HX of N/V After Surgery Non-Smoker Duration of Surgery greater than 60 minutes Number of Risk Factors PONV Score Height & Weight Height & Weight: Anesthesia: Height & Weight Height 5 ft 8 in 04/03/25 17:31 Weight: 89.3 kg 04/04/25 06:00 Body Mass Index (BMI) 29.8 04/04/25 06:00 Respiratory Assessment Respiratory Assessment - fresh foods cake decorator: Respiratory Tract Infection Hx - fresh foods cake decorator Hx Respiratory Tract Infection No 04/03/25 21:46 STOP Sleep Apnea STOP Sleep Apnea - fresh foods cake decorator: STOP Sleep Apnea - fresh foods cake decorator Hx Hypertension Yes 04/03/25 17:31 Hx Sleep Apnea No 04/03/25 17:31 CPAP No 03/25/24 15:21 BIPAP No 03/25/24 15:21 Do you snore loudly (louder No 04/03/25 17:31 than talking or can be heard Do you often feel tired/ No 04/03/25 17:31 fatigued/ sleepy during daytime? Has anyone observed you stop No 04/03/25 17:31 breathing during sleep? STOP Results Negative 04/03/25 17:31 QUESTION #5 FULL TEXT : Do you snore loudly (louder than talking or can be heard through closed doors)? 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 Specify any problems Hx of Preganancy in last 3 No 04/03/25 17:31 Months Nurse Filling Out Transfusion KMESSENGE 04/03/25 17:31 & Questions: Date: 04/03/25 04/03/25 17:31 Time: 17:46 04/03/25 17:31 Patient unable to answer at this time (ie. confused, unrespo /Reproduction History /Reproductive History - fresh foods cake decorator: /Reproductive Hx- fresh foods cake decorator Hx Now No 04/03/25 21:46 Gestational Age (in weeks): EDC: Hx Hx Para Hx Section SAB No 04/03/25 21:46 Active Medications Active Medications: Current Medications Generic Name Dose Route Start Last Admin Trade Name Freq PRN Reason Stop Dose Admin Acetaminophen 1,000 mg 04/03/25 22:00 04/04/25 05:10 Acetaminophen 500 Mg Tablet PO Not Given Q8 RILEY Albuterol Sulfate 2.5 mg 04/03/25 17:47 Albuterol 2.5 Mg/3 Ml Vial.Neb. INHALATION Q2H PRN PRN SOB &/OR WHEEZING Amitriptyline HCl 50 mg 04/03/25 22:00 04/03/25 21:38 Amitriptyline 25 Mg Tablet PO 50 mg QHS RILEY Administration Atorvastatin Calcium 10 mg 04/03/25 22:00 04/03/25 21:38 Atorvastatin Calcium 10 Mg Tablet PO 10 mg QHS RILEY Administration Buspirone HCl 15 mg 04/03/25 22:00 04/04/25 05:10 Buspirone 15 Mg Tablet PO 15 mg TID RILEY Administration Sodium Chloride 77.9 ml/ 0 ml 04/04/25 12:30 Ropivacaine 200 mg/ OPERA.SITE 04/04/25 12:31 Epinephrine HCl 0.6 mg/ INTRAOP ONE Ketorolac Tromethamine 30 mg/ Morphine Sulfate 5 mg Ferrous Sulfate 325 mg 04/04/25 08:00 04/04/25 07:38 Ferrous Sulfate 325 Mg Tablet PO Not Given DAILYCM RILEY Furosemide 40 mg 04/04/25 10:00 04/04/25 07:38 Furosemide 40 Mg Tablet PO Not Given DAILY RILEY Protocol Glucagon 1 mg 04/03/25 17:47 Glucagon 1 Mg/Ml Syringe IM X1 PRN HYPOGLYCEMIA Protocol Cefazolin Sodium 2 gm/ Sodium 110 mls @ 200 mls/hr 04/04/25 12:30 Chloride IV 04/04/25 13:02 INTRAOP ONE Tranexamic Acid 1,000 mg/ 110 mls @ 660 mls/hr 04/04/25 12:30 Sodium Chloride IV 04/04/25 12:39 PREOP ONE Sodium Chloride 250 mls @ 15 mls/hr 04/03/25 17:32 IV .[id number] PRN Additional IVPB Infusion Sodium Chloride 250 mls @ 15 mls/hr 04/03/25 17:32 IV .[id number] PRN Saline Flush Dextrose 250 mls @ 0 mls/hr 04/03/25 17:47 Dextrose 10%-Water IV .Q0M PRN HYPOGLYCEMIA Protocol As Directed Lactated Ringer's 1,000 mls @ 15 mls/hr 04/04/25 11:45 04/04/25 11:56 IV 15 mls/hr .Q48H RILEY Administration Insulin Human Lispro 0 unit 04/03/25 22:00 04/04/25 10:53 Insulin Lispro 100 Unit/Ml Insuln.Pen SC Not Given ACHS [facility] Protocol Levothyroxine Sodium 100 mcg 04/04/25 06:00 04/04/25 05:10 Levothyroxine 100 Mcg Tablet PO 100 mcg DAILY@0600 RILEY Administration Melatonin 10 mg 04/03/25 17:47 Melatonin 10 Mg Tablet PO QHS PRN PRN INSOMNIA Metoprolol Succinate 50 mg 04/04/25 10:00 04/04/25 07:55 Metoprolol(Xl)Succ 50 Mg Tablet PO 50 mg DAILY RILEY Administration Protocol Morphine Sulfate 2 - 4 mg 04/03/25 17:47 04/04/25 11:00 Morphine 2 Mg/Ml Syringe IV 2 mg Q3H PRN PRN Administration Pain Score 6-10 Ondansetron HCl 4 mg 04/03/25 17:47 Ondansetron 4 Mg/2 Ml Vial IV Q8H PRN PRN NAUSEA/VOMITING Oxycodone HCl 5 mg 04/03/25 22:00 04/04/25 05:10 Oxycodone 5 Mg Tablet PO 5 mg TID RILEY Administration Pantoprazole Sodium 40 mg 04/04/25 10:00 04/04/25 07:38 Pantoprazole Sodium 40 Mg Tablet PO Not Given DAILY RILEY Potassium Chloride 40 meq 04/03/25 17:47 04/04/25 07:38 Potassium Chloride Oral Tablet 20 Meq PO Not Given DAILY RILEY Senna/Docusate Sodium 2 tablet 04/03/25 22:00 04/04/25 07:38 Senna/Docusate Sodium 1 Tablet PO Not Given BID RILEY Sodium Chloride 10 - 40 ml 04/03/25 17:32 04/03/25 19:45 0.9% Saline Lock 10 Ml Syringe IV 10 ml UD PRN Administration SALINE FLUSH PFSH Medical History Overweight (BMI 25.0-29.9) Coronary artery disease Iron deficiency anemia History of non-ST elevation myocardial infarction (NSTEMI) (2013) Longstanding persistent atrial fibrillation Essential (primary) hypertension Anxiety Hypothyroidism Hyperlipidemia Secondary pulmonary arterial hypertension Atherosclerosis of coronary artery of [place] heart without angina pectoris Paroxysmal atrial fibrillation Paroxysmal atrial flutter Sick sinus syndrome Home Medications ?Medication ?Instructions ?Recorded ?Last Taken ?Type buspirone 15 mg tablet 15 mg PO TID ANXIETY 3 04/04/25 History omeprazole 40 mg capsule,delayed 40 mg PO DAILY ACID R EFLUX 06/02/13 04/02/25 History release nitroglycerin 0.4 mg sublingual 0.4 mg sublingual Q5M PRN CHEST 04/21/15 Unknown History tablet PAIN amitriptyline 50 mg tablet 50 mg PO QHS DEPRESSION 03/0404/02/25 History empagliflozin 10 mg tablet 10 mg PO DAILY DIABETES 03/0404/03/25 History (Jardiance) ketotifen fumarate 0.025 % (0.035 1 drp ophthalmic (ey e) BID PRN 02/17/23 04/02/25 History %) eye drops (Alaway) ITCHING/ALLERGIES levothyroxine 100 mcg tablet 100 mcg PO DAILY THYROID 12/14/23 04/04/25 History (Synthroid) furosemide 40 mg tablet (Lasix) 40 mg PO DAILY water p ill #60 tabs 12/17/23 04/03/25 Rx rivaroxaban 20 mg tablet (Xarelto) 20 mg PO QPM #90 ta bs 10/06/24 04/02/25 Rx losartan 100 mg tablet 100 mg PO DAILY blood pressu re #90 11/18/24 04/03/25 Rx tabs potassium chloride 20 mEq 40 meq (2 x 20 mEq) PO QDAY #90 11/21/24 04/02/25 Rx tablet,extended release(part/cryst) tabs metoprolol succinate 50 mg 50 mg PO DAILY heart/BP #90 tabs 11/23/24 04/04/25 Rx tablet,extended release 24 hr simvastatin 20 mg tablet 20 mg PO QHS CHOLESTEROL #9 0 tabs 12/22/24 04/02/25 Rx amlodipine 10 mg tablet 10 mg PO DAILY 02/08/2503/14 History ferrous sulfate 325 mg (65 mg 65 mg PO DAILY 02/08/25 04/03/25 History iron) tablet (FeroSul) oxycodone-acetaminophen 5 mg-325 1 tab PO TID PRN PRN pain 02/08/25 04/03/25 History mg tablet ascorbic acid (vitamin C) 500 mg 500 mg PO BID 5 04/03/25 History tablet (Vitamin C) Allergy/AdvReac Type Severity Reaction Status Date / Time poison fany extract (Poison Allergy Rash Verified 04/03/25 13:18 Fany Extract) Sulfa (Sulfonamide Allergy Hives Verified 04/03/25 13:18 Antibiotics) Family History Mother Cancer Father Cancer Brother CAD (coronary artery disease) Sister CAD (coronary artery disease) Surgical History S/P kyphoplasty History of tubal ligation History of appendectomy History of hysterectomy History of left heart catheterization (10/09/13) History of coronary artery stent placement (09/2010) Hx of atrioventricular node ablation (03/31/16) Presence of cardiac pacemaker (04/26/15) Social History household members: spouse Smoking Status: Former smoker how long ago did patient quit smokin's alcohol intake: never substance use type: does not use caffeine: Yes Type: coffee Number of servings: 3 Review of Systems (Anesthesia) ROS Narrative System reviewed and no additional complaints, except as documented. 04/04/25 2150 <Electronically signed by Niranjan arzola MD> Date _ Niranjan Turner MD Cosigner Signature: Date CC: ~ Signed [facility] Work Phone: Consult note Author Adonis Rodriguez [facility] Note Date/Time April 04, 2025 2:48pm [facility] Medical Records Department [address] [place] [id number] Consultation - Orthopedics 04/04/25 1444 MR#: [id number] Acct: [id number] Name: GUDELIA GUPTA Rep #:[id number] : 1940 84 From: Adonis Garcia PCP: Dr. Victor M Rocha MD Status:AD M IN Location: [place] [address]-1 HPI Consult Data Date of Consult: 04/04/25 HPI Narrative HPI Narrative: GUDELIA GUPTA, is a 84 F who presents after falling at home yesterday April 03, 2025. She was going up stairs. At the top she caught her foot falling ontothe floor. She landed on her left side. She did not fall down the stairs. Shewas not able to walk. She was brought to the hospital. She was diagnosed with a displaced femoral neck fracture. Admitted to the medical service. Orthopedics appropriately consulted. She denies dizziness head injury loss of consciousness. [facility] Medical History Overweight (BMI 25.0-29.9) Coronary artery disease Iron deficiency anemia History of non-ST elevation myocardial infarction (NSTEMI) (2013) Longstanding persistent atrial fibrillation Essential (primary) hypertension Anxiety Hypothyroidism Hyperlipidemia Secondary pulmonary arterial hypertension Atherosclerosis of coronary artery of [place] heart without angina pectoris Paroxysmal atrial fibrillation Paroxysmal atrial flutter Sick sinus syndrome Home Medications ?Medication ?Instructions ?Recorded ?Last Taken ?Type buspirone 15 mg tablet 15 mg PO TID ANXIETY 3 04/04/25 History omeprazole 40 mg capsule,delayed 40 mg PO DAILY ACID R EFLUX 06/02/13 04/02/25 History release nitroglycerin 0.4 mg sublingual 0.4 mg sublingual Q5M PRN CHEST 04/21/15 Unknown History tablet PAIN amitriptyline 50 mg tablet 50 mg PO QHS DEPRESSION 03/0404/02/25 History empagliflozin 10 mg tablet 10 mg PO DAILY DIABETES 03/0404/03/25 History (Jardiance) ketotifen fumarate 0.025 % (0.035 1 drp ophthalmic (ey e) BID PRN 02/17/23 04/02/25 History %) eye drops ([place]) ITCHING/ALLERGIES levothyroxine 100 mcg tablet 100 mcg PO DAILY THYROID 12/14/23 04/04/25 History (Synthroid) furosemide 40 mg tablet (Lasix) 40 mg PO DAILY water p ill #60 tabs 12/17/23 04/03/25 Rx rivaroxaban 20 mg tablet (Xarelto) 20 mg PO QPM #90 ta bs 10/06/24 04/02/25 Rx losartan 100 mg tablet 100 mg PO DAILY blood pressu re #90 11/18/24 04/03/25 Rx tabs potassium chloride 20 mEq 40 meq (2 x 20 mEq) PO QDAY #90 11/21/24 04/02/25 Rx tablet,extended release(part/cryst) tabs metoprolol succinate 50 mg 50 mg PO DAILY heart/BP #90 tabs 11/23/24 04/04/25 Rx tablet,extended release 24 hr simvastatin 20 mg tablet 20 mg PO QHS CHOLESTEROL #9 0 tabs 12/22/24 04/02/25 Rx amlodipine 10 mg tablet 10 mg PO DAILY 02/08/2503/14 History ferrous sulfate 325 mg (65 mg 65 mg PO DAILY 02/08/25 04/03/25 History iron) tablet (FeroSul) oxycodone-acetaminophen 5 mg-325 1 tab PO TID PRN PRN pain 02/08/25 04/03/25 History mg tablet ascorbic acid (vitamin C) 500 mg 500 mg PO BID 5 04/03/25 History tablet (Vitamin C) Allergy/AdvReac Type Severity Reaction Status Date / Time poison fany extract (Poison Allergy Rash Verified 04/03/25 13:18 Fany Extract) Sulfa (Sulfonamide Allergy Hives Verified 04/03/25 13:18 Antibiotics) Family History Mother Cancer Father Cancer Brother CAD (coronary artery disease) Sister CAD (coronary artery disease) Surgical History S/P kyphoplasty History of tubal ligation History of appendectomy History of hysterectomy History of left heart catheterization (10/09/13) History of coronary artery stent placement (09/2010) Hx of atrioventricular node ablation (03/31/16) Presence of cardiac pacemaker (04/26/15) Social History household members: spouse Smoking Status: Former smoker how long ago did patient quit smokin's alcohol intake: never substance use type: does not use caffeine: Yes Type: coffee Number of servings: 3 ROS ROS Narrative Patient denies any recent changes to eyes ears nose or throat heart or lungs bowel or bladder. Currently having significant left hip pain with moving from fracture. Vital Signs Vital Signs Vital Signs: 04/03/25 15:09 04/03/25 15:13 04/03/25 16:30 Temperature 98 F Temperature Source Pulse Rate 83 83 Respiratory Rate 20 H 20 H Respiratory Effort Respiratory Depth Respiratory Pattern Blood Pressure 96/83 H Blood Pressure Mean 87 Blood Pressure Source Blood Pressure Position Blood Pressure Location Pulse Ox 81 93 93 Oxygen Delivery Method Room Air Nasal Cannula Oxygen Flow Rate (L/min) 2 04/03/25 16:54 04/03/25 17:48 04/03/25 17:56 Temperature 98.1 F Temperature Source Oral Pulse Rate 101 H Respiratory Rate 18 Respiratory Effort Short of Breath Respiratory Depth Respiratory Pattern Blood Pressure 127/52 H Blood Pressure Mean 77 Blood Pressure Source Monitor Blood Pressure Position Semi-Fowlers Blood Pressure Location Left Arm Pulse Ox 92 93 Oxygen Delivery Method Nasal Cannula Nasal Cannula Nasal Cannula Oxygen Flow Rate (L/min) 5 7 7 04/03/25 19:51 04/03/25 20:00 04/03/25 20:00 Temperature 98.5 F 98 F Temperature Source Temporal Temporal Pulse Rate 79 79 Respiratory Rate 16 16 Respiratory Effort Normal Non-Labored Respiratory Depth Normal Respiratory Pattern Normal Blood Pressure 121/57 H 121/57 H Blood Pressure Mean 78 78 Blood Pressure Source Monitor Monitor Blood Pressure Position Supine Semi-Fowlers Blood Pressure Location Left Arm Right Arm Pulse Ox 95 95 Oxygen Delivery Method Nasal Cannula Nasal Cannula Nasal Cannula Oxygen Flow Rate (L/min) 2 2 2 04/03/25 20:10 04/04/25 02:14 04/04/25 07:47 Temperature 97.8 F 97.8 F Temperature Source Temporal Temporal Pulse Rate 81 80 Respiratory Rate 16 18 Respiratory Effort Respiratory Depth Respiratory Pattern Blood Pressure 104/53 L 139/65 H Blood Pressure Mean 70 89 Blood Pressure Source Monitor Monitor Blood Pressure Position Semi-Fowlers Supine Blood Pressure Location Left Arm Left Arm Pulse Ox 95 94 91 Oxygen Delivery Method Nasal Cannula Nasal Cannula Nasal Cannula Oxygen Flow Rate (L/min) 2 2 3 04/04/25 07:52 04/04/25 07:55 04/04/25 10:03 Temperature Temperature Source Pulse Rate 80 Respiratory Rate Respiratory Effort Normal Non-Labored Respiratory Depth Normal Respiratory Pattern Normal Blood Pressure Blood Pressure Mean Blood Pressure Source Blood Pressure Position Blood Pressure Location Pulse Ox 95 Oxygen Delivery Method Nasal Cannula Nasal Cannula Oxygen Flow Rate (L/min) 3 2 04/04/25 12:02 04/04/25 12:35 Temperature 97.8 F 97.8 F Temperature Source Temporal Pulse Rate 80 80 Respiratory Rate 18 18 Respiratory Effort Respiratory Depth Respiratory Pattern Blood Pressure 129/93 H 129/93 H Blood Pressure Mean 105 Blood Pressure Source Monitor Blood Pressure Position Right Lateral Blood Pressure Location Left Arm Pulse Ox 89 89 Oxygen Delivery Method Nasal Cannula Room Air Oxygen Flow Rate (L/min) 3 3 Weight Weight: 89.3 kg Body Mass Index (BMI) 29.8 Physical Exam Narrative Left hip has shortening and external rotation. Left hip has pain on palpation. No pain at the right hip. No pain with moving the right hip. SCDs are on. Shehad no calf pain. She can gently plantarflex and dorsiflex toes and ankles. Distal pulses intact. Skin intact about the left hip. Lab / Micro Data Attestation: I reviewed the patient's lab results. 04/04/25 04:40 04/04/25 04:40 Labs: Laboratory Results - last 24 hr 04/03/25 14:35: WBC 17.4 H, RBC 4.08 L, Hgb 11.8 L, Hct 37.3, MCV 91.4, MCH 28.9, MCHC 31.6 L, RDW Std Deviation 70.0 H, RDW Coeff of Jose Alberto 21.3 H, Plt Count 236, MPV 9.6, Immature Gran % (Auto) 0.800, Neut % (Auto) 86.5 H, Lymph % (Auto)4.3 L, [place] % (Auto) 8.1, Eos % (Auto) 0.1, Baso % (Auto) 0.2, Absolute Neuts (auto) 15.0 H, Absolute Lymphs (auto) 0.75 L, Nucleated RBC % 0, Anisocytosis 1+, PT 24.1 H, INR 2.1, APTT 40.9 H, Sodium 135, Potassium 4.4, Chloride 101, Carbon Dioxide 22.0, Anion Gap 12, BUN 18, Creatinine 1.34 H, Estim Creat Clear Calc 36.41 L, Est GFR (MDRD) Non-Af 39 L, BUN/Creatinine Ratio 13.5, Glucose 181H, Calcium 9.2, NT pro BNP II 1850 H 04/03/25 21:43: POC Glucose 174 H 04/04/25 04:40: WBC 9.5, RBC 3.87 L, Hgb 11.3 L, Hct 35.4 L, MCV 91.5, MCH 29.2,MCHC 31.9 L, RDW Std Deviation 70.1 H, RDW Coeff of Jose Alberto 21.3 H, Plt Count 211, MPV 10.2, Immature Gran % (Auto) 0.600, Neut % (Auto) 76.2 H, Lymph % (Auto) 11.5 L, [place] % (Auto) 9.4, Eos % (Auto) 2.1, Baso % (Auto) 0.2, Absolute Neuts (auto) 7.2, Absolute Lymphs (auto) 1.09, Nucleated RBC % 0, Anisocytosis RARE, Sodium 136, Potassium 4.5, Chloride 103, Carbon Dioxide 20.0 L, Anion Gap 13, BUN 18, Creatinine 1.34 H, Estim Creat Clear Calc 35.43 L, Est GFR (MDRD) Non-Af39 L, BUN/Creatinine Ratio 13.5, Glucose 118 H, Calcium 8.9, Blood Type O POSITIVE, Antibody Screen NEGATIVE 04/04/25 06:14: POC Glucose 123 H 04/04/25 10:56: POC Glucose 137 H Imaging Radiology Impression Chest X-Ray 04/03/25 14:09 IMPRESSION: Left thoracic transvenous pacemaker with atrial and ventricular leads, stable inposition. A prominently calcified aorta is noted. Mild cardiomegaly is seen. Increased interstitial markings are seen, concerning for (but not diagnostic of)mild interstitial pulmonary edema. No focal infiltrate is noted. No pleural effusion or pneumothorax is seen. No acute osseous change is seen. Reading Location: -[id number] Femur X-Ray 04/03/25 14:09 IMPRESSION: Nondisplaced impacted fracture of the subcapital region of the proximal left femur. Soft tissue swelling. Reading Location: [facility] Pelvis X-Ray 04/03/25 14:09 IMPRESSION: Residual contrast material is seen within at least 2 sigmoid diverticula. Significant degenerative changes are seen of the visualized lower lumbar spine. Mild sacroiliac joint degenerative changes are noted. Deformity of the left femoral neck is seen, concerning for possible basicervicalmildly impacted fracture. Additional imaging of the left hip may be performed, at this time. Reading Location: -[id number] Brain CT 04/03/25 15:00 IMPRESSION: CHRONIC CHANGES. NO ACUTE FINDINGS. Reading Location: [facility] 04/03/25 15:00 IMPRESSION: DEGENERATIVE CHANGES OF THE CERVICAL SPINE. NO EVIDENCE OF SIGNIFICANT OSSEOUS CENTRAL CANAL OR NEURAL FORAMINAL STENOSIS. Reading Location: [facility] Assessment & Plan Assessment/Plan (1) Closed left hip fracture: QUALIFIERS: Encounter type: initial encounter Qualified Code(s): S72.002A - Fracture of unspecified part of neck of left femur, initial encounterfor closed fracture PLAN: Her diagnosis and treatment options regarding her left displaced femoral neck fracture discussed with her and her family at length. Surgical and nonsurgical options discussed. I recommended cemented hip arthroplasty. They did wish to proceed. Risk of surgery including but not limited to from operative or postoperative complications. Risk of anesthetic complications such as heart attacks, strokes, seizures, or . Risk of infections. Risk of damage to nerves arteries tendons. Risk of inadvertent fractures or dislocations. Risk of bone or wound healing complications. Possibility of nonunion malunion pain stiffness weakness. Possible need for further surgery such as hardware removal. Risk of DVT PE and other potential complications could lead to or disability explained. No guarantees were stated or implied. All of their questions were answered. Appropriate informed consent was obtained and signed for surgical intervention. Patient has been evaluated by the medical service and anesthesia service. She has been deemed safe for surgery. She did have a dose of Xarelto seemingly yesterday morning. I explained the risk of proceeding versus the risk of postponing surgery. We decided to proceed. Patient will be on Ancef before and after surgery. We will resume her Xarelto tomorrow. She will continue on the medical service. 04/04/25 3668 <Electronically signed by Adonis Rodriguez MD> Cosigner Signature (if applicable): CC: Dr. Victor M Rocha MD~ Signed [facility] Work Phone: consult note Author Dwight Berg [facility] Note Date/Time April 06, 2025 11:37am [facility] Medical Records Department [address] [place] [address] Anesthesia Postop Eval I 04/04/25 1520 MR#: [id number] Acct: [id number] Name: GUDELIA GUPTA Rep #:[id number] : 1940 84 From: Dwight ZARAGOZA PCP: Dr. Victor M Rocha MD Status:AD M IN Y Race: C Location: [place] [address] Anesthesia: Postop Eval I Current Vital Signs Temperature: 99.3 F Pulse Rate: 80 Blood Pressure: 111/58 Respiratory Rate: 16 Pulse Ox: 92 Assessment Airway patent: Yes Spontaneous unlabored respirations: Yes nausea: No Vomiting: No Anesthesia Complication: No Fluid Hydration Crystalloid volume administer (ml): 1,300 Total IV fluid infused: 1,300 Progress Note Anesthesia document: Postop Eval 1 completed: Yes 04/04/25 152 <Electronically signed by Dwight Berg CRNA> Date _ Dwight Berg CRNA Cosigner Signature: Date CC: ~ Signed [facility] Work Phone: consult note Author Niranjan Turner [facility] Note Date/Time April 06, 2025 11:37am [facility] Medical Records Department [address] [place] [address] Anesthesia Postop Eval II 04/04/25 1753 MR#: [id number] Acct: [id number] Name: GUDELIA GUPTA Rep #:[id number] : 1940 84 From: Niranjan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 malaise and fatigue Hypothyroidism, unspecified type Hyperlipidemia, unspecified hyperlipidemia type Essential hypertension, benign Type 2 diabetes mellitus with other diabetic kidney complication, 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 ([facility]) Stage 3a chronic kidney disease (HCC) DELONG (dyspnea on exertion) Other dyspnea and respiratory abnormality Chronic diastolic CHF (congestive heart failure) (HCC) Chronic diastolic heart failure [facility] Diagnosis DELONG (dyspnea on exertion) Other dyspnea and respiratory abnormality Chronic diastolic CHF (congestive heart failure) (HCC) Chronic diastolic heart failure [facility]* Diagnosis Anemia, unspecified type Positive fecal occult blood test Nonspecific abnormal finding in stool contents [facility] Diagnosis Type 2 diabetes mellitus with other diabetic kidney complication, 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 ([facility])- Primary Generalized weakness Other malaise and fatigue MDD (major depressive disorder), recurrent episode, moderate (HCC) Major depressive disorder, recurrent episode, moderate Stage 3b chronic kidney disease (HCC) Chronic diastolic CHF (congestive heart failure) (HCC) Chronic diastolic heart failure Anemia, unspecified type Paroxysmal atrial fibrillation (HCC) Atrial fibrillation Essential hypertension, benign Iron deficiency anemia, unspecified iron deficiency anemia type Hypothyroidism, unspecified type Hyperlipidemia, unspecified hyperlipidemia type [facility] Author Ashli Bonner [facility] Note Date/Time April 03, 2025 5:35pm [facility] Medical Records Department [address] [place] [address] H&P Exam - Hospitalist 04/03/25 1713 MR#: [id number] Acct: [id number] Name: GUDELIA GUPTA Rep #:[id number] : 1940 84 From: Ashli Bonner MD PCP: Dr. Victor M Rocha MD Status:AD M IN Location: NV3 [id number] HPI - General General Date of Admission: 04/03/25 Date of Service: 04/03/25 Chief Complaint: Left hip pain after fall HPI Narrative GUDELIA GUPTA, is a 84-year-old female history of A-fib/flutter, sick sinus syndrome with pacemaker placement, anxiety, hypertension, GERD, diabetes who presented [facility] ED 04/03/2025 for left hip pain. She slipped on hardwood floor and landed on her left hip and had immediate pain. Inthe ED temp 98, heart rate 78, blood pressure 96/83, respiratory rate 20 and pulse ox 96% on room air. White blood cell count 17.4, hemoglobin 11.8, BMP with a BUN of 18 and a creatinine of 1.34. INR 2.1. CT brain no acute changes. Cervical spine no acute process. Femur x-ray and x- ray pelvis with nondisplaced impacted fracture of subcapital region of proximal left femur with soft tissue swelling. Chest x-ray with some increased interstitial markings butno focal infiltrate. Given patient's hip fracture Ortho contacted who recommended hospital admission with Ortho consult. Hospitalist contacted for admission. Patient evaluated bedside. She reports walking up her stairs and that her foot caught and she fell on the hardwood floor on her left hip. Denieshurting anything else or hitting her head. Denies any significant new shortnessof breath or chest pain or cough. Gets some swelling in her lower extremities which is not necessarily new and she wears lower extremity stockings for this. Was noted to be hypoxic into the mid to high 80s while laying flat on room air and was placed on 2 L of nasal cannula. Does have history of heart failure, reports compliance with her Lasix. Denies any bowel or bladder concerns or changes [facility] Medical History Overweight (BMI 25.0-29.9) Coronary artery disease Iron deficiency anemia History of non-ST elevation myocardial infarction (NSTEMI) (2013) Longstanding persistent atrial fibrillation Essential (primary) hypertension Anxiety Hypothyroidism Hyperlipidemia Secondary pulmonary arterial hypertension Atherosclerosis of coronary artery of [place] heart without angina pectoris Paroxysmal atrial fibrillation Paroxysmal atrial flutter Sick sinus syndrome Home Medications ?Medication ?Instructions ?Recorded ?Last Taken ?Type buspirone 15 mg tablet 15 mg PO TID ANXIETY 3 04/03/25 History omeprazole 40 mg capsule,delayed 40 mg PO DAILY ACID R EFLUX 06/02/13 04/02/25 History release nitroglycerin 0.4 mg sublingual 0.4 mg sublingual Q5M PRN CHEST 04/21/15 Unknown History tablet PAIN amitriptyline 50 mg tablet 50 mg PO QHS DEPRESSION 03/0404/02/25 History empagliflozin 10 mg tablet 10 mg PO DAILY DIABETES 03/0404/03/25 History (Jardiance) ketotifen fumarate 0.025 % (0.035 1 drp ophthalmic (ey e) BID PRN 02/17/23 04/02/25 History %) eye drops ([place]) ITCHING/ALLERGIES levothyroxine 100 mcg tablet 100 mcg PO DAILY THYROID 12/14/23 04/03/25 History (Synthroid) furosemide 40 mg tablet (Lasix) 40 mg PO DAILY water p ill #60 tabs 12/17/23 04/03/25 Rx rivaroxaban 20 mg tablet (Xarelto) 20 mg PO QPM #90 ta bs 10/06/24 04/02/25 Rx losartan 100 mg tablet 100 mg PO DAILY blood pressu re #90 11/18/24 04/03/25 Rx tabs potassium chloride 20 mEq 40 meq (2 x 20 mEq) PO QDAY #90 11/21/24 04/02/25 Rx tablet,extended release(part/cryst) tabs metoprolol succinate 50 mg 50 mg PO DAILY heart/BP #90 tabs 11/23/24 04/02/25 Rx tablet,extended release 24 hr simvastatin 20 mg tablet 20 mg PO QHS CHOLESTEROL #9 0 tabs 12/22/24 04/02/25 Rx amlodipine 10 mg tablet 10 mg PO DAILY 02/08/2503/14 History ferrous sulfate 325 mg (65 mg 65 mg PO DAILY 02/08/25 04/03/25 History iron) tablet (FeroSul) oxycodone-acetaminophen 5 mg-325 1 tab PO TID PRN PRN pain 02/08/25 04/03/25 History mg tablet ascorbic acid (vitamin C) 500 mg 500 mg PO BID 5 04/03/25 History tablet (Vitamin C) Allergy/AdvReac Type Severity Reaction Status Date / Time poison fany extract (Poison Allergy Rash Verified 04/03/25 13:18 Fany Extract) Sulfa (Sulfonamide Allergy Hives Verified 04/03/25 13:18 Antibiotics) Family History Mother Cancer Father Cancer Brother CAD (coronary artery disease) Sister CAD (coronary artery disease) Surgical History S/P kyphoplasty History of tubal ligation History of appendectomy History of hysterectomy History of left heart catheterization (10/09/13) History of coronary artery stent placement (09/2010) Hx of atrioventricular node ablation (03/31/16) Presence of cardiac pacemaker (04/26/15) Social History household members: spouse Smoking Status: Former smoker how long ago did patient quit smokin's alcohol intake: never substance use type: does not use caffeine: Yes Type: coffee Number of servings: 3 ROS ROS Narrative General: Denies fever/chills HENT: Denies headache, denies stuffy nose, denies sore throat EYES: Denies changes in vision Resp: Denies cough, denies any new shortness of breath Cardiac: Denies chest pain GI: Denies abdominal pain, denies changes in bowel, has felt intermittently little bit nauseous since her fall : Denies changes in urination Extremity: Bilateral lower extremity swelling for which she wears compression stockings and is not acute MSK: Denies weakness, left thigh pain feeling better to some extent after pain meds Neuro: Denies any numbness/tingling Heme: Denies any bleeding or bruising Skin: Denies rashes Psychiatric: No complaints voiced Vital Signs Vital Signs Vital Signs: 04/03/25 13:13 04/03/25 14:09 04/03/25 15:09 Temperature 98 F Temperature Source Oral Pulse Rate 78 Respiratory Rate 20 H Blood Pressure 96/83 H Blood Pressure Mean 87 Pulse Ox 96 81 Oxygen Delivery Method Room Air Room Air Room Air Oxygen Flow Rate (L/min) 04/03/25 15:13 04/03/25 16:30 04/03/25 16:54 Temperature 98 F Temperature Source Pulse Rate 83 83 Respiratory Rate 20 H 20 H Blood Pressure 96/83 H Blood Pressure Mean 87 Pulse Ox 93 93 92 Oxygen Delivery Method Nasal Cannula Nasal Cannula Oxygen Flow Rate (L/min) 2 5 Weight Weight: 92 kg Body Mass Index (BMI) 30.8 Physical Exam Narrative General: Alert, no apparent distress HEENT: normocephalic Eyes: Anicteric, normal conjunctiva, extraocular movements grossly intact Neck: Supple Respiratory: Very faint crackles at the bases without any wheezes or rhonchi normal respiratory effort Cardiovascular: Regular rate GI: Soft, nontender, nondistended Extremities: No edema Musculoskeletal: Moving all extremities though left extremity limited due to pain Neuro: No overt focal neurological deficits Skin: No rashes appreciated Psych: Cooperative Results Lab / Micro Data 04/03/25 14:35 04/03/25 14:35 Labs: Laboratory Results - last 24 hr 04/03/25 14:35: WBC 17.4 H, RBC 4.08 L, Hgb 11.8 L, Hct 37.3, MCV 91.4, MCH 28.9, MCHC 31.6 L, RDW Std Deviation 70.0 H, RDW Coeff of Jose Alberto 21.3 H, Plt Count 236, MPV 9.6, Immature Gran % (Auto) 0.800, Neut % (Auto) 86.5 H, Lymph % (Auto)4.3 L, [place] % (Auto) 8.1, Eos % (Auto) 0.1, Baso % (Auto) 0.2, Absolute Neuts (auto) 15.0 H, Absolute Lymphs (auto) 0.75 L, Nucleated RBC % 0, Anisocytosis 1+, PT 24.1 H, INR 2.1, APTT 40.9 H, Sodium 135, Potassium 4.4, Chloride 101, Carbon Dioxide 22.0, Anion Gap 12, BUN 18, Creatinine 1.34 H, Estim Creat Clear Calc 36.41 L, Est GFR (MDRD) Non-Af 39 L, BUN/Creatinine Ratio 13.5, Glucose 181H, Calcium 9.2, NT pro BNP II 1850 H Imaging Radiology Impression Chest X-Ray 04/03/25 14:09 IMPRESSION: Left thoracic transvenous pacemaker with atrial and ventricular leads, stable inposition. A prominently calcified aorta is noted. Mild cardiomegaly is seen. Increased interstitial markings are seen, concerning for (but not diagnostic of)mild interstitial pulmonary edema. No focal infiltrate is noted. No pleural effusion or pneumothorax is seen. No acute osseous change is seen. Reading [id number] 04/03/25 14:09 IMPRESSION: Nondisplaced impacted fracture of the subcapital region of the proximal left femur. Soft tissue swelling. [facility] 04/03/25 14:09 IMPRESSION: Residual contrast material is seen within at least 2 sigmoid diverticula. Significant degenerative changes are seen of the visualized lower lumbar spine. Mild sacroiliac joint degenerative changes are noted. Deformity of the left femoral neck is seen, concerning for possible basicervicalmildly impacted fracture. Additional imaging of the left hip may be performed, at this time. Reading Location: -[id number] Brain CT 04/03/25 15:00 IMPRESSION: CHRONIC CHANGES. NO ACUTE FINDINGS. Reading Location: [facility] 04/03/25 15:00 IMPRESSION: DEGENERATIVE CHANGES OF THE CERVICAL SPINE. NO EVIDENCE OF SIGNIFICANT OSSEOUS CENTRAL CANAL OR NEURAL FORAMINAL STENOSIS. [facility] Assessment & Plan Assessment/Plan (1) Closed left hip fracture: PLAN: Plan # Left hip fracture -Imaging: Femur x-ray with nondisplaced impacted fracture of subcapital region of proximal left femur -Ortho consult -Pain control and scheduled bowel regimen -Will continue patient's home oxycodone 3 times daily as scheduled as reportedlyshe does take it regularly -Patient's last dose of Xarelto was the evening of 04/02, unsure when surgery will take place, will make patient n.p.o. at midnight until this information is obtained to verify no delays -PT/OT -Case management and social work consults for DC planning #Hx chronic HF - Unclear subtype, daughter and patient report history of heart failure -Last echo 03/26/2024 with EF of 45 to 50% unable to assess diastolic dysfunctionwith apex akinetic -BNP 1800 but similar to what it was previous -Has chronic swelling in lower extremities and wears compression stockings -She is on 2 L nasal cannula, suspect patient's history of chronic heart failureand laying flat is causing suboptimal oxygenation however unable to sit up easily due to fracture -Will give dose of IV Lasix and monitor on pulse ox, given BNP similar to previous and no complaints of increased shortness of breath and her lower extremity swelling is chronic do not think she is in acute exacerbation -Will monitor daily weights and I's and O's # History of A-fib/flutter/sick sinus syndrome with pacemaker placement -Hold home Xarelto -Metoprolol with holding parameters #Type 2 diabetes mellitus -Glucose checks and sliding scale insulin -Hold home oral hypoglycemics # Elevated white blood cell count -No infectious signs or symptoms -Denies any urinary complaints -Afebrile -Repeat in a.m., can consider further workup if indicated moving forward #Hypothyroidism -Continue Synthroid #Depression/anxiety -Continue home medications #Hypertension - Continue metoprolol with holding parameters, hold other home antihypertensivesto allow for pain control and patient have surgery #Hx of CAD -w/ previous stenting - Holding Xarelto, continue statin, beta-rosaura as tolerated #GERD -Continue PPI #DVT ppx: SCDs Ashli Bonner MD Charges/Coding Visit Charges Inpatient E&M: 37057 Init Hosp L2 04/03/25 1735 <Electronically signed by Ashli Bonner MD> Cosigner Signature (if applicable): CC: Dr. Victor M Rocha MD; Dr. Ashli Bonner MD~ Signed [facility] Work Phone: Hospital Discharge instructions Additional Instructions Follow-up with your PCP and return for any worsening of your symptoms.[facility] Work Phone: Progress note Author Gunnar Mullen [facility] Note Date/Time April 04, 2025 10:28am [facility] Medical Records Department [address] [place] [address] Progress Note - Hospitalist 04/04/25742 MR#: [id number] Acct: [id number] Name: GUDELIA GUPTA Rep #:[id number] : 1940 84 From: Gunnar Mullen DO PCP: Dr. Victor M Rocha MD Status:AD M IN Location: [place] [id number] Reason for Visit Chief Complaint: Left hip pain after fall Subjective Subjective Having pain with movement. Objective Data Objective Data Vital Signs: Vital Signs Temp Pulse Resp BP Pulse Ox O2 Del Method O2 Flow Rate 36.6 C 81 16 104/53 L 94 Nasal Cannula 2 04/04/25 02:14 04/04/25 02:14 04/04/25 02:14 04/04/25 02:14 04/04/25 02:14 04/04/25 02:14 04/04/25 02:14 Oxygen Flow Rate (L/min) 2 Oxygen Delivery Method Nasal Cannula Weight: 89.3 kg Body Mass Index (BMI) 29.8 Intake & Output: Intake and Output for Last 24 Hours 04/02/25 04/03/25 04/04/25 23:59 23:59 23:59 Intake Total 1000 / 1000 Output Total 2000 / 4000 2550 / 2550 Balance -1000 / -3000 -2550 / -2550 Lab / Micro Data 04/04/25 04:40 04/04/25 04:40 Labs: Laboratory Results - last 24 hr 04/03/25 14:35: WBC 17.4 H, RBC 4.08 L, Hgb 11.8 L, Hct 37.3, MCV 91.4, MCH 28.9, MCHC 31.6 L, RDW Std Deviation 70.0 H, RDW Coeff of Jose Alberto 21.3 H, Plt Count 236, MPV 9.6, Immature Gran % (Auto) 0.800, Neut % (Auto) 86.5 H, Lymph % (Auto)4.3 L, [place] % (Auto) 8.1, Eos % (Auto) 0.1, Baso % (Auto) 0.2, Absolute Neuts (auto) 15.0 H, Absolute Lymphs (auto) 0.75 L, Nucleated RBC % 0, Anisocytosis 1+, PT 24.1 H, INR 2.1, APTT 40.9 H, Sodium 135, Potassium 4.4, Chloride 101, Carbon Dioxide 22.0, Anion Gap 12, BUN 18, Creatinine 1.34 H, Estim Creat Clear Calc 36.41 L, Est GFR (MDRD) Non-Af 39 L, BUN/Creatinine Ratio 13.5, Glucose 181H, Calcium 9.2, NT pro BNP II 1850 H 04/03/25 21:43: POC Glucose 174 H 04/04/25 04:40: WBC 9.5, RBC 3.87 L, Hgb 11.3 L, Hct 35.4 L, MCV 91.5, MCH 29.2,MCHC 31.9 L, RDW Std Deviation 70.1 H, RDW Coeff of Jose Alberto 21.3 H, Plt Count 211, MPV 10.2, Immature Gran % (Auto) 0.600, Neut % (Auto) 76.2 H, Lymph % (Auto) 11.5 L, [place] % (Auto) 9.4, Eos % (Auto) 2.1, Baso % (Auto) 0.2, Absolute Neuts (auto) 7.2, Absolute Lymphs (auto) 1.09, Nucleated RBC % 0, Anisocytosis RARE, Sodium 136, Potassium 4.5, Chloride 103, Carbon Dioxide 20.0 L, Anion Gap 13, BUN 18, Creatinine 1.34 H, Estim Creat Clear Calc 35.43 L, Est GFR (MDRD) Non-Af39 L, BUN/Creatinine Ratio 13.5, Glucose 118 H, Calcium 8.9, Blood Type O POSITIVE, Antibody Screen NEGATIVE 04/04/25 06:14: POC Glucose 123 H Radiography Diagnostic Testing: Radiology Impression Chest X-Ray 04/03/25 14:09 IMPRESSION: Left thoracic transvenous pacemaker with atrial and ventricular leads, stable inposition. A prominently calcified aorta is noted. Mild cardiomegaly is seen. Increased interstitial markings are seen, concerning for (but not diagnostic of)mild interstitial pulmonary edema. No focal infiltrate is noted. No pleural effusion or pneumothorax is seen. No acute osseous change is seen. Reading [id number] 04/03/25 14:09 IMPRESSION: Nondisplaced impacted fracture of the subcapital region of the proximal left femur. Soft tissue swelling. Reading Location: [facility] Pelvis X-Ray 04/03/25 14:09 IMPRESSION: Residual contrast material is seen within at least 2 sigmoid diverticula. Significant degenerative changes are seen of the visualized lower lumbar spine. Mild sacroiliac joint degenerative changes are noted. Deformity of the left femoral neck is seen, concerning for possible basicervicalmildly impacted fracture. Additional imaging of the left hip may be performed, at this time. Reading [id number] 04/03/25 15:00 IMPRESSION: CHRONIC CHANGES. NO ACUTE FINDINGS. Reading Location: [facility] 04/03/25 15:00 IMPRESSION: DEGENERATIVE CHANGES OF THE CERVICAL SPINE. NO EVIDENCE OF SIGNIFICANT OSSEOUS CENTRAL CANAL OR NEURAL FORAMINAL STENOSIS. Reading Location: [facility] Physical Exam Const alert and no apparent distress HEENT head/scalp atraumatic and moist oral mucous membranes Resp normal respiratory effort, no retractions, no use of accessory muscles and clearto auscultation bilaterally Cardio regular rate, regular rhythm, S1 normal heart sound and S2 normal heart sound GI normal to inspection, nondistended, normoactive bowel sounds, soft to palpation and non-tender Neuro Sensorium / Orientation: awake and alert Assessment & Plan Assessment/Plan (1) Closed left hip fracture: PLAN: Plan Left hip fracture * Imaging: Femur x-ray with nondisplaced impacted fracture of subcapital region of proximal left femur * Ortho consult * Pain control and scheduled bowel regimen: Will continue patient's home oxycodone 3 times daily as scheduled as reportedly she does take it regularly * Patient's last dose of Xarelto was the evening of 04/02, unsure when surgery will take place, will make patient n.p.o. at midnight until this information is obtained to verify no delays * PT/OT * Case management and social work consults for DC planning Leukocytosis: * resolved. likley reactive/demargination given fxr. * no additional work up at this time. Chronic medical conditions: * HFrEF: compensated. Last echo 03/26/2024 with EF of 45 to 50% unable to assess diastolic dysfunction with apex akinetic * History of A-fib/flutter/sick sinus syndrome with pacemaker placement-Hold home Xarelto-Metoprolol with holding parameters * Type 2 diabetes mellitus-Glucose checks and sliding scale insulin-Hold home oral hypoglycemics * hypothyroidism-Continue Synthroid * Depression/anxiety-Continue home medications * Hypertension- Continue metoprolol with holding parameters, hold other home antihypertensives to allow for pain control and patient have surgery * Hx of CAD-w/ previous stenting- Holding Xarelto, continue statin, beta-rosaura as tolerated * GERD-Continue PPI DVT ppx: SCDs Charges/Coding Visit Charges Inpatient E&M: 17756 Subs Hosp L2 04/04/25 1028 <Electronically signed by Gunnar Mullen DO> Cosigner Signature (if applicable): CC: ~ Signed [facility] Work Phone: Progress note Author Gunnar Mullen [facility] Note Date/Time April 05, 2025 12:20pm [facility] Medical Records Department [address] [place] [address] Progress Note - Hospitalist 04/05/25 0719 MR#: [id number] Acct: [id number] Name: GUDELIA UGPTA Rep #:[id number] : 1940 84 From: Gunnar Mullen DO PCP: Dr. Victor M Rocha MD Status:AD M IN Location: MS3 [id number] Reason for Visit Chief Complaint: Left hip pain after fall Subjective Subjective Feeling better. Pain in left hip much better. Objective Data Objective Data Vital Signs: Vital Signs Temp Pulse Resp BP Pulse Ox O2 Del Method O2 Flow Rate 36.7 C 81 18 134/82 H 95 Nasal Cannula 2 04/05/25 04:02 04/05/25 04:02 04/05/25 04:02 04/05/25 04:02 04/05/25 04:02 04/05/25 04:02 04/05/25 04:02 Oxygen Flow Rate (L/min) 2 Oxygen Delivery Method Nasal Cannula Weight: 89.6 kg Body Mass Index (BMI) 29.9 Intake & Output: Intake and Output for Last 24 Hours 04/03/25 04/04/25 04/05/25 23:59 23:59 23:59 Intake Total 1000 / 1000 1270 / 1270 50 / 50 Output Total 2000 / 4000 3600 / 3600 400 / 400 Balance -1000 / -3000 -2330 / -2330 -350 / -350 Lab / Micro Data 04/05/25 06:27 04/05/25 06:27 Labs: Laboratory Results - last 24 hr 04/04/25 10:56: POC Glucose 137 H 04/04/25 16:25: POC Glucose 171 H 04/04/25 21:27: POC Glucose 213 H 04/05/25 05:56: POC Glucose 157 H 04/05/25 06:27: WBC 14.7 H, RBC 3.41 L, Hgb 10.2 L, Hct 31.5 L, MCV 92.4, MCH 29.9, MCHC 32.4, RDW Std Deviation 67.8 H, RDW Coeff of Jose Alberto 20.4 H, Plt Count 201, MPV 10.3, Immature Gran % (Auto) 0.400, Neut % (Auto) 88.4 H, Lymph % (Auto) 5.5 L, [place] % (Auto) 5.6, Eos % (Auto) 0.0, Baso % (Auto) 0.1, Absolute Neuts (auto) 13.0 H, Absolute Lymphs (auto) 0.81 L, Nucleated RBC % 0 Radiography Diagnostic Testing: Radiology Impression Hip X-Ray 04/04/25 15:20 IMPRESSION: Status post total left hip replacement. Normal alignment without loosening. Reading Location: [facility] Physical Exam Const alert Constitutional Narrative: up in chair. afebrile. HEENT head/scalp atraumatic and moist oral mucous membranes Resp normal respiratory effort and no retractions Neuro Sensorium / Orientation: awake and alert Psych affect normal Assessment & Plan Assessment/Plan (1) Closed left hip fracture: QUALIFIERS: Encounter type: initial encounter Qualified Code(s): S72.002A - Fracture of unspecified part of neck of left femur, initial encounterfor closed fracture PLAN: Plan Left hip fracture * Imaging: Femur x-ray with nondisplaced impacted fracture of subcapital region of proximal left femur * 04/04: performed left hip cemented arthroplasty * Pain control and scheduled bowel regimen: Will continue patient's home oxycodone 3 times daily as scheduled as reportedly she does take it regularly * Patient's last dose of Xarelto was the evening of 04/02, unsure when surgery will take place, will make patient n.p.o. at midnight until this information is obtained to verify no delays * PT/OT * Case management and social work consults for DC planning Leukocytosis: * improved. likely reactive/demargination given fxr. * no additional work up at this time. Chronic medical conditions: * HFrEF: compensated. Last echo 03/26/2024 with EF of 45 to 50% unable to assess diastolic dysfunction with apex akinetic * History of A-fib/flutter/sick sinus syndrome with pacemaker placement * Type 2 diabetes mellitus-Glucose checks and sliding scale insulin-Hold home oral hypoglycemics * hypothyroidism-Continue Synthroid * Depression/anxiety-Continue home medications * Hypertension- Continue metoprolol with holding parameters, hold other home antihypertensives to allow for pain control and patient have surgery * Hx of CAD-w/ previous stenting- Holding Xarelto, continue statin, beta-rosaura as tolerated * GERD-Continue PPI DVT ppx: rivaroxaban. DW pt's at bedside DW SW/CM/RN. Plan for SNF pending acceptance. Charges/Coding Visit Charges Inpatient E&M: 56559 Subs Hosp L2 04/05/25 1220 <Electronically signed by Gunnar Mullen DO> Cosigner Signature (if applicable): CC: ~ Signed [facility] Work Phone: Progress note Author Shavon Ferguson [facility] Note Date/Time April 05, 2025 3:33pm [facility] Medical Records Department [address] [place] [address] Progress Note - Orthopedic 04/05/25 1518 MR#: [id number] Acct: [id number] Name: GUDELIA GUPTA Rep #:[id number] : 1940 84 From: Shavon BRISCOE PCP: Dr. Victor M Rocha MD Status:AD M IN Location: NV3 [id number] Subjective Subjective Patient is s/p left hip cemented hemiarthroplasty with Dr. Rodriguez 04/04/25. Patient resting comfortably in bed. Tylenol, oxycodone and ice help to relievepain. Patient has been up with therapy. Walking with the assit of a walker. Weightbearing as tolerated. Afebrile, no chest pain, shortness of breath, negative calf pain/ erythema, and no other signs of DVT. Objective Data Objective Data Vital Signs: Vital Signs Temp Pulse Resp BP Pulse Ox O2 Del Method O2 Flow Rate 97.8 F 80 15 104/52 L 92 Room Air 2 04/05/25 10:00 04/05/25 11:04 04/05/25 10:00 04/05/25 10:00 04/05/25 10:00 04/05/25 11:28 04/05/25 10:00 Oxygen Flow Rate (L/min) 2 Oxygen Delivery Method Room Air Weight: 89.6 kg Body Mass Index (BMI) 29.9 Intake & Output: Intake and Output for Last 24 Hours 04/03/25 04/04/25 04/05/25 23:59 23:59 23:59 Intake Total 1000 / 1000 1270 / 1270 50 / 50 Output Total 2000 / 4000 3600 / 3600 400 / 400 Balance -1000 / -3000 -2330 / -2330 -350 / -350 Lab / Micro Data 04/05/25 06:27 04/05/25 06:27 Labs: Laboratory Results - last 24 hr 04/04/25 16:25: POC Glucose 171 H 04/04/25 21:27: POC Glucose 213 H 04/05/25 05:56: POC Glucose 157 H 04/05/25 06:27: WBC 14.7 H, RBC 3.41 L, Hgb 10.2 L, Hct 31.5 L, MCV 92.4, MCH 29.9, MCHC 32.4, RDW Std Deviation 67.8 H, RDW Coeff of Jose Alberto 20.4 H, Plt Count 201, MPV 10.3, Immature Gran % (Auto) 0.400, Neut % (Auto) 88.4 H, Lymph % (Auto) 5.5 L, [place] % (Auto) 5.6, Eos % (Auto) 0.0, Baso % (Auto) 0.1, Absolute Neuts (auto) 13.0 H, Absolute Lymphs (auto) 0.81 L, Nucleated RBC % 0, Anisocytosis RARE, Sodium 132 L, Potassium 4.5, Chloride 100, Carbon Dioxide 21.1, Anion Gap 11, BUN 18, Creatinine 1.11, Estim Creat Clear Calc 43.39 L, EstGFR (MDRD) Non-Af 49 L, BUN/Creatinine Ratio 16.6, Glucose 182 H, Calcium 8.8 04/05/25 11:11: POC Glucose 256 H Radiography Diagnostic Testing: Radiology Impression Hip X-Ray 04/04/25 15:20 IMPRESSION: Status post total left hip replacement. Normal alignment without loosening. Reading Location: [facility] Physical Exam Narrative Patient resting comfortably in bed No signs of acute distress Satting well on room air Limb is warm to touch, Sensation intact throughout entire lower extremity, including saphenous, sural, superficial and deep peroneal, and tibial distribution. DP/PT pulses bounding. Dressing small amount of sanguanous drainage on the mid portion of dressing. itis dried at this time. Calf nontender to palpation, no erythema, no edema. Negative Homans Assessment & Plan Assessment/Plan (1) S/P total hip arthroplasty: PLAN: Plan 1. Will continue PT today. Weightbearing as tolerated. Posterior hip precautions x 6 weeks 2. plan for discharge per primary. Stable from orthopedic standpoint. 3. Patient will follow up for post op appointment in 2 weeks this will need to be scheduled. 4. WBC 14.7 acute reactive leukocytosis: secondary to pre operative decadron. noacute systemic signs of infection. will monitor, and likely self resolve. 5. H/H 10.2.5: post operavtive anemia secondary to acute blood loss intraoperatively. Patient is asymptomatic at this time. No intraoperative complications. will continue to monitor. no acute interventions. 6. DVT prophylaxis : Resume Xarelto 7. Pain control: patient instructed to take tylenol 500mg 2 tablets TID. and oxycodone 1-2 tablets every 4-6 hours only as needed for pain control. 8. ok to remove post op dressing. post op day 5 9. Emily will be removed in 2 weeks. 04/05/251531 <Electronically signed by Shavon BRISCOE> Cosigner Signature (if applicable): CC: ~ Signed ADDENDUM by LUIS FELIPE Dickinson on 04/05/25 at 1533 Addendum orthopaedics will sign off at this time. 04/05/251531<Electronically signed by Shavon BRISCOE> Cosigner Signature (if applicable): cc: ~* Signed [facility] Work Phone: Progress note Author Gunnar Mullen [facility] Note Date/Time April 06, 2025 9:38am [facility] Medical Records Department [address] [place] [address] Progress Note - Hospitalist 04/06/25 0804 MR#: [id number] Acct: [id number] Name: GUDELIA GUPTA Rep #:[id number] : 1940 84 From: Gunnar Mullen DO PCP: Dr. Victor M Rocha MD Status:AD M IN Location: NV3 [id number] Reason for Visit Chief Complaint: Left hip pain after fall Subjective Subjective Feeling well. No new complaints. Objective Data Objective Data Vital Signs: Vital Signs Temp Pulse Resp BP Pulse Ox O2 Del Method O2 Flow Rate 36.6 C 80 16 102/74 97 Nasal Cannula 2 04/06/25 06:03 04/06/25 06:03 04/06/25 06:03 04/06/25 06:03 04/06/25 07:01 04/06/25 07:01 04/06/25 07:01 Oxygen Flow Rate (L/min) 2 Oxygen Delivery Method Nasal Cannula Weight: 89.6 kg Body Mass Index (BMI) 29.9 Intake & Output: Intake and Output for Last 24 Hours 04/04/25 04/05/25 04/06/25 23:59 23:59 23:59 Intake Total 1270 / 1270 350 / 350 1053.75 / 1053.75 Output Total 3600 / 3600 400 / 400 Balance -2330 / -2330 -50 / -50 1053.75 / 1053.75 Lab / Micro Data 04/05/25 06:27 04/05/25 06:27 Labs: Laboratory Results - last 24 hr 04/05/25 11:11: POC Glucose 256 H 04/05/25 17:03: POC Glucose 181 H 04/05/25 22:51: POC Glucose 165 H 04/06/25 06:17: POC Glucose 118 H Physical Exam Const alert and no apparent distress Constitutional Narrative: up in chair. afebrile. non-toxic. HEENT head/scalp atraumatic Assessment & Plan Assessment/Plan (1) Closed left hip fracture: QUALIFIERS: Encounter type: initial encounter Qualified Code(s): S72.002A - Fracture of unspecified part of neck of left femur, initial encounterfor closed fracture PLAN: Plan Left hip fracture * Imaging: Femur x-ray with nondisplaced impacted fracture of subcapital region of proximal left femur * 04/04: performed left hip cemented arthroplasty * Pain control and scheduled bowel regimen: Will continue patient's home oxycodone 3 times daily as scheduled as reportedly she does take it regularly * Patient's last dose of Xarelto was the evening of 04/02, unsure when surgery will take place, will make patient n.p.o. at midnight until this information is obtained to verify no delays * PT/OT * Case management and social work consults for DC planning Leukocytosis: * improved. likely reactive/demargination given fxr. * no additional work up at this time. Chronic medical conditions: * HFrEF: compensated. Last echo 03/26/2024 with EF of 45 to 50% unable to assess diastolic dysfunction with apex akinetic * History of A-fib/flutter/sick sinus syndrome with pacemaker placement * Type 2 diabetes mellitus-Glucose checks and sliding scale insulin-Hold home oral hypoglycemics * hypothyroidism-Continue Synthroid * Depression/anxiety-Continue home medications * Hypertension- Continue metoprolol with holding parameters, hold other home antihypertensives to allow for pain control and patient have surgery * Hx of CAD-w/ previous stenting- Holding Xarelto, continue statin, beta-rosaura as tolerated * GERD-Continue PPI DVT ppx: rivaroxaban. DW pt's at bedside DW SW/CM/RN. SNF today. 04/06/25 0938 <Electronically signed by Gunnar Mullen DO> Cosigner Signature (if applicable): CC: ~ Signed [facility] Work Phone: Reason for referral (narrative)* Diagnostic Procedure Only (Routine) - Closed Specialty Diagnoses / Procedures Referred By Yovani walton Referred To Contact XR IMAGING Diagnoses MGUS (monoclonal gammopathy of unknown significance) Procedures XR BONE SURVEY ROUTINE RADIOLOGIC EXAMINATION OSSEOUS SURVEY COMPL Elizabet Baker DO [address] [place] [address] Xr Imaging [place] [facility] Referral ID Status Reason Start Date Expiration Date V isits Requested Visits Authorized [id number] Closed Auto-Generate d Referral 02/26/2024 03/27/2025 1 1 * MRI/CT (Routine) - Authorized Specialty Diagnoses / Procedures Referred By Yovani walton Referred To Contact CT IMAGING Diagnoses MGUS (monoclonal gammopathy of unknown significance) Procedures CT WHOLE BODY SKULL TO KNEE WO IVCON UNLISTED COMPUTED TOMOGRAPHY PROCEDURE CT HEART NO CONTRAST QUANT EVAL CORONRY CALCIUM Elizabet Baker, DO [address] [place] [address] [place] [address] Referral ID Status Reason Start Date Expiration Date Visits Requested Visits Authorized [id number] Authorized Auto-Generat ed Referral 02/26/2024 03/27/2025 1 1 [facility] for [facility] Work Phone: Reason for visit Narrative* Diagnostic Procedure Only (Routine) - Closed Specialty Diagnoses / Procedures Referred By Contac t Referred To Contact XR IMAGING Diagnoses MGUS (monoclonal gammopathy of unknown significance) Procedures XR BONE SURVEY ROUTINE RADIOLOGIC EXAMINATION OSSEOUS SURVEY COMPL Elizabet Baker DO [address] [place] [address] [place] [address] Referral ID Status Reason Start Date Expiration Date V isits Requested Visits Authorized [id number] Closed Auto-Generate d Referral 02/26/2024 03/27/2025 1 1 [facility] Summary Purpose Family History No Family History Records Found Relationship Condition Age at Onset Recorded Date/T shanell mother Malignant neoplasm Unknown father Malignant neoplasm Unknown brother Coronary artery disease Unknown sister Coronary artery disease Unknown Advance Directives No Advanced Directives Records FoundDocuments on File Type Date Recorded Patient Customer Contact Representative Expl anation Advance Directive(s) Advance Directive Response Recorded Date/ Time Advance Directives No March 12:24pm Living Will No May 01 3:28pm Power of Turn Down Attendant No May 01, 2020 3:28pm Advance Directive Response Recorded Date/ Time Name of Medical Power of Turn Down Attendant bria gupta August 15, 2022 12:51pm Advance Directives No March 11:24am Living Will Yes August 15 12:51pm Power of Turn Down Attendant Yes August 15, 2022 12:51pm Advance Directive Response Recorded Date/ Time Advance Directives No March 12:24pm Living Will No December 04, 2022 2 :51pm Power of Turn Down Attendant No December 04, 2022 2:51pm Advance Directive Response Recorded Date/ Time Advance Directives No March 11:24am Living Will No June 15 5:29pm Power of Turn Down Attendant No June 15, 2023 5:29pm Advance Directive Response Recorded Date/ Time Advance Directives Yes March 11:56am Advance Directive Response Recorded Date/ Time Do you have a Healthcare Power of Turn Down Attendant? Yes February 08, 2025 5:12pm Advance Directives Yes March 11:56am Advance Directive Response Recorded Date/ Time Do you have a Healthcare Power of Turn Down Attendant? Yes April 03, 2025 5:31pm Do you have a Healthcare Power of Turn Down Attendant? Yes February 08, 2025 5:12pm Advance Directives Yes March 11:56am Chief Complaint [...] 2024 10:57am Presence of cardiac pacemaker November 18 025 10:57am History of coronary artery stent placeme nt November 18, 2024 10:57am Essential (primary) hypertension November 10:57am Hyperlipidemia November 18, 2024 10:57a m Chief Complaint Admit Date 6 M FU November 18, 2024 10:57a m Pacer Check Remote January 09, 2025 2:00 am AE CHF WITH ACUTE RESPIRATORY INSUFFICIE NCY February 08, 2025 8:40pm Reason for Visit Admit Date Longstanding persistent atrial fibrillat ion November 18, 2024 10:57am Presence of cardiac pacemaker November 18, 025 10:57am History of coronary artery stent placeme nt November 18, 2024 10:57am Essential (primary) hypertension November 10:57am Hyperlipidemia November 18, 2024 10:57a m Acute exacerbation of chronic heart fail ure February 08, 2025 8:40pm Elevated troponin February 08, 2025 8:40 pm Fatigue February 08, 2025 8:40 pm Generalized weakness February 08, 2025 8:4 0pm Overweight (BMI 25.0-29.9) February 08 8:40pm Respiratory insufficiency February 08 8:40pm Paroxysmal atrial fibrillation January 8:40pm Presence of cardiac pacemaker February 08, 2025 8:40pm Secondary pulmonary arterial hypertensio n February 08, 2025 8:40pm Sick sinus syndrome February 08, 2025 8:40 pm Chief Complaint Admit Date 6 M FU November 18, 2024 10:57a m Pacer Check Remote January 09, 2025 2:00 am AE CHF WITH ACUTE RESPIRATORY INSUFFICIE NCY February 08, 2025 8:40pm AE CHF WITH ACUTE RESPIRATORY INSUFFICIE NCY February 09, 2025 1:07pm AE CHF WITH ACUTE RESPIRATORY INSUFFICIE NCY February 10, 2025 2:01pm AE CHF WITH ACUTE RESPIRATORY INSUFFICIE NCY February 10, 2025 6:19pm Reason for Visit Admit Date Longstanding persistent atrial fibrillat ion November 18, 2024 10:57am Presence of cardiac pacemaker November 18, 10:57am History of coronary artery stent placeme nt November 18, 2024 10:57am Essential (primary) hypertension November 10:57am Hyperlipidemia November 18, 2024 10:57a m Acute exacerbation of chronic heart fail ure February 08, 2025 8:40pm Dysphagia February 08, 2025 8:40 pm Elevated troponin February 08, 2025 8:40 pm Fatigue February 08, 2025 8:40 pm Generalized weakness February 08, 2025 8:4 0pm Overweight (BMI 25.0-29.9) February 08 8:40pm Respiratory insufficiency February 08 8:40pm Paroxysmal atrial fibrillation January 8:40pm Presence of cardiac pacemaker February 08, 2025 8:40pm Secondary pulmonary arterial hypertensio n February 08, 2025 8:40pm Sick sinus syndrome February 08, 2025 8:40 pm Chief Complaint Admit Date 6 M FU November 18, 2024 10:57a m Pacer Check Remote January 09, 2025 2:00 am AE CHF WITH ACUTE RESPIRATORY INSUFFICIE NCY February 08, 2025 8:40pm AE CHF WITH ACUTE RESPIRATORY INSUFFICIE NCY February 09, 2025 1:07pm AE CHF WITH ACUTE RESPIRATORY INSUFFICIE NCY February 10, 2025 2:01pm AE CHF WITH ACUTE RESPIRATORY INSUFFICIE NCY February 10, 2025 6:19pm AE CHF WITH ACUTE RESPIRATORY INSUFFICIE NCY February 11, 2025 2:55pm S/P [facility] 02/11February 21, 2025 10 :05am Reason for Visit Admit Date Longstanding persistent atrial fibrillat ion November 18, 2024 10:57am History of coronary artery stent placeme nt November 18, 2024 10:57am Essential (primary) hypertension November 10:57am Hyperlipidemia November 18, 2024 10:57a m Presence of cardiac pacemaker November 18 10:57am Dysphagia February 08, 2025 8:40 pm Acute exacerbation of chronic heart fail ure February 08, 2025 8:40pm Elevated troponin February 08, 2025 8:40 pm Fatigue February 08, 2025 8:40 pm Generalized weakness February 08, 2025 8:4 0pm Respiratory insufficiency February 08 8:40pm Overweight (BMI 25.0-29.9) February 08 8:40pm Paroxysmal atrial fibrillation January 8:40pm Presence of cardiac pacemaker February 08, 2025 8:40pm Secondary pulmonary arterial hypertensio n February 08, 2025 8:40pm Sick sinus syndrome February 08, 2025 8:40 pm Longstanding persistent atrial fibrillat ion February 21, 2025 10:05am History of coronary artery stent placeme nt February 21, 2025 10:05am Essential (primary) hypertension February 21, 2025 10:05am Hyperlipidemia February 21, 2025 10 :05am Presence of cardiac pacemaker February 10:05am Chief Complaint Admit Date Pacer Check Remote January 09, 2025 2:00 am AE CHF WITH ACUTE RESPIRATORY INSUFFICIE NCY February 08, 2025 8:40pm AE CHF WITH ACUTE RESPIRATORY INSUFFICIE NCY February 09, 2025 1:07pm AE CHF WITH ACUTE RESPIRATORY INSUFFICIE NCY February 10, 2025 2:01pm AE CHF WITH ACUTE RESPIRATORY INSUFFICIE NCY February 10, 2025 6:19pm AE CHF WITH ACUTE RESPIRATORY INSUFFICIE NCY February 11, 2025 2:55pm S/P [facility] 02/11February 21, 2025 10 :05am Reason for Visit Admit Date Dysphagia February 08, 2025 8:40 pm Presence of cardiac pacemaker February 08, 2025 8:40pm Acute exacerbation of chronic heart fail ure February 08, 2025 8:40pm Elevated troponin February 08, 2025 8:40 pm Fatigue February 08, 2025 8:40 pm Generalized weakness February 08, 2025 8:4 0pm Respiratory insufficiency February 08 8:40pm Overweight (BMI 25.0-29.9) February 08 8:40pm Paroxysmal atrial fibrillation January 8:40pm Secondary pulmonary arterial hypertensio n February 08, 2025 8:40pm Sick sinus syndrome February 08, 2025 8:40 pm Essential (primary) hypertension February 21, 2025 10:05am History of coronary artery stent placeme nt February 21, 2025 10:05am Hyperlipidemia February 21, 2025 10 :05am Longstanding persistent atrial fibrillat ion February 21, 2025 10:05am Presence of cardiac pacemaker February 10:05am Chief Complaint Admit Date Pacer Check Remote January 09, 2025 2:00 am AE CHF WITH ACUTE RESPIRATORY INSUFFICIE NCY February 08, 2025 8:40pm AE CHF WITH ACUTE RESPIRATORY INSUFFICIE NCY February 09, 2025 1:07pm AE CHF WITH ACUTE RESPIRATORY INSUFFICIE NCY February 10, 2025 2:01pm AE CHF WITH ACUTE RESPIRATORY INSUFFICIE NCY February 10, 2025 6:19pm AE CHF WITH ACUTE RESPIRATORY INSUFFICIE NCY February 11, 2025 2:55pm S/P [facility] 02/11February 21, 2025 10 :05am LEFT HIP FRACTURE April 03, 2025 5:13pm LEFT HIP FRACTURE April 04, 2025 7:43am LEFT HIP FRACTURE April 05, 2025 7:19am LEFT HIP FRACTURE April 06, 2025 8:04am Reason for Visit Admit Date Dysphagia February 08, 2025 8:40 pm Presence of cardiac pacemaker February 08, 2025 8:40pm Acute exacerbation of chronic heart fail ure February 08, 2025 8:40pm Elevated troponin February 08, 2025 8:40 pm Fatigue February 08, 2025 8:40 pm Generalized weakness February 08, 2025 8:4 0pm Respiratory insufficiency February 08 8:40pm Overweight (BMI 25.0-29.9) February 08 8:40pm Paroxysmal atrial fibrillation January 8:40pm Secondary pulmonary arterial hypertensio n February 08, 2025 8:40pm Sick sinus syndrome February 08, 2025 8:40 pm Essential (primary) hypertension February 21, 2025 10:05am History of coronary artery stent placeme nt February 21, 2025 10:05am Hyperlipidemia February 21, 2025 10 :05am Longstanding persistent atrial fibrillat ion February 21, 2025 10:05am Presence of cardiac pacemaker February 10:05am Closed left hip fracture April 03, 2025 5:13pm Heart failure April 03, 2025 5:13pm S/P total hip arthroplasty March 5:13pm Essential (primary) hypertension Septemb 2024 5:13pm History of coronary artery stent placeme nt April 03, 2025 5:13pm Hyperlipidemia April 03, 2025 5:13pm Reason for Referral Specialty Diagnoses / Procedures Referred By Yovani walton Referred To Contact Victor M Rocha MD [address] [place] [address] Referral ID Status Reason Start Date Expiration Date V isits Requested Visits Authorized [id number] Authorized 09/24/2022 10/24/2023 1 1 Specialty Diagnoses / Procedures Referred By Yovani walton Referred To Contact MR IMAGING Diagnoses MGUS (monoclonal gammopathy of unknown significance) Compression fracture of thoracic vertebra, unspecified thoracic vertebral level, initial encounter (HCC) Lytic bone lesions on xray Procedures MRI SKULL BASE WO/W IVCON MRI BRAIN BRAIN STEM W/O W/CONTRAST MATERIAL Elizabet Baker, [address] [place] [address] [place] [address] Referral ID Status Reason Start Date Expiration Date Visits Requested Visits Authorized [id number] New Request Auto-Generat ed Referral 04/01/2024 05/01/2025 1 1 Specialty Diagnoses / Procedures Referred By Yovani walton Referred To Contact MOLECULAR & FUNCTIONAL IMAGING Diagnoses MGUS (monoclonal gammopathy of unknown significance) Compression fracture of thoracic vertebra, unspecified thoracic vertebral level, initial encounter (HCC) Lytic bone lesions on xray Procedures NM PET/CT WHOLE BODY INITIAL PET IMAGING FOR CT ATTENUATION WHOLE BODY Elizabet Baker, DO [address] [place] [address] Molecular & Functional Imaging [address] [place] [address] Referral ID Status Reason Start Date Expiration Date Visits Requested Visits Authorized [id number] Authorized Auto-Generat ed Referral 04/01/2024 05/01/2025 1 1 Additional Source Comments INFORMATION SOURCE (unrecogn ized section and content) DATE CREATED AUTHOR 10/20/2020 [facility] DATE CREATED AUTHOR AUTHOR'S ORGANIZ ATION 03/24/2024 [facility] DATE CREATED AUTHOR AUTHOR'S ORGANIZ ATION 03/09/2025 [facility] DATE CREATED AUTHOR AUTHOR'S ORGANIZ ATION 04/16/2025 [facility] Source Comments (unrecognize d section and content) In the event this informatio n is protected by the Federal Confidentiality of Alcohol and Drug Abuse Patient Records regulations: The Federal rules restrict any use of the information to criminally investigate or prosecute any alcohol or drug abuse patient.[facility] HospitalIn the event this information is protected by the Federal Confidentiality of Alcohol and Drug Abuse Patient Records regulations: The Federal rules restrict any use of the information to criminally investigate or prosecute any alcohol or drug abuse patient.[facility] HospitalIn the event this information is protected by the Federal Confidentiality of Alcohol and Drug Abuse Patient Records regulations: The Federal rules restrict any use of the information to criminally investigate or prosecute any alcohol or drug abuse patient.[facility] HospitalIn the event this information is protected by the Federal Confidentiality of Alcohol and Drug Abuse Patient Records regulations: The Federal rules restrict any use of the information to criminally investigate or prosecute any alcohol or drug abuse patient.[facility] HospitalIn the event this information is protected by the Federal Confidentiality of Alcohol and Drug Abuse Patient Records regulations: The Federal rules restrict any use of the information to criminally investigate or prosecute any alcohol or drug abuse patient.[facility] HospitalIn the event this information is protected by the Federal Confidentiality of Alcohol and Drug Abuse Patient Records regulations: The Federal rules restrict any use of the information to criminally investigate or prosecute any alcohol or drug abuse patient.[facility] HospitalIn the event this information is protected by the Federal Confidentiality of Alcohol and Drug Abuse Patient Records regulations: The Federal rules restrict any use of the information to criminally investigate or prosecute any alcohol or drug abuse patient.[facility] HospitalIn the event this information is protected by the Federal Confidentiality of Alcohol and Drug Abuse Patient Records regulations: The Federal rules restrict any use of the information to criminally investigate or prosecute any alcohol or drug abuse patient.[facility] HospitalIn the event this information is protected by the Federal Confidentiality of Alcohol and Drug Abuse Patient Records regulations: The Federal rules restrict any use of the information to criminally investigate or prosecute any alcohol or drug abuse patient.[facility] HospitalIn the event this information is protected by the Federal Confidentiality of Alcohol and Drug Abuse Patient Records regulations: The Federal rules restrict any use of the information to criminally investigate or prosecute any alcohol or drug abuse patient.[facility] HospitalIn the event this information is protected by the Federal Confidentiality of Alcohol and Drug Abuse Patient Records regulations: The Federal rules restrict any use of the information to criminally investigate or prosecute any alcohol or drug abuse patient.[facility] HospitalIn the event this information is protected by the Federal Confidentiality of Alcohol and Drug Abuse Patient Records regulations: The Federal rules restrict any use of the information to criminally investigate or prosecute any alcohol or drug abuse patient.[facility] HospitalIn the event this information is protected by the Federal Confidentiality of Alcohol and Drug Abuse Patient Records regulations: The Federal rules restrict any use of the information to criminally investigate or prosecute any alcohol or drug abuse patient.[facility] HospitalIn the event this information is protected by the Federal Confidentiality of Alcohol and Drug Abuse Patient Records regulations: The Federal rules restrict any use of the information to criminally investigate or prosecute any alcohol or drug abuse patient.[facility] HospitalIn the event this information is protected by the Federal Confidentiality of Alcohol and Drug Abuse Patient Records regulations: The Federal rules restrict any use of the information to criminally investigate or prosecute any alcohol or drug abuse patient.[facility] HospitalIn the event this information is protected by the Federal Confidentiality of Alcohol and Drug Abuse Patient Records regulations: The Federal rules restrict any use of the information to criminally investigate or prosecute any alcohol or drug abuse patient.[facility] HospitalIn the event this information is protected by the Federal Confidentiality of Alcohol and Drug Abuse Patient Records regulations: The Federal rules restrict any use of the information to criminally investigate or prosecute any alcohol or drug abuse patient.[facility] HospitalIn the event this information is protected by the Federal Confidentiality of Alcohol and Drug Abuse Patient Records regulations: The Federal rules restrict any use of the information to criminally investigate or prosecute any alcohol or drug abuse patient.[facility] HospitalIn the event this information is protected by the Federal Confidentiality of Alcohol and Drug Abuse Patient Records regulations: The Federal rules restrict any use of the information to criminally investigate or prosecute any alcohol or drug abuse patient.[facility] HospitalIn the event this information is protected by the Federal Confidentiality of Alcohol and Drug Abuse Patient Records regulations: The Federal rules restrict any use of the information to criminally investigate or prosecute any alcohol or drug abuse patient.[facility] HospitalIn the event this information is protected by the Federal Confidentiality of Alcohol and Drug Abuse Patient Records regulations: The Federal rules restrict any use of the information to criminally investigate or prosecute any alcohol or drug abuse patient.[facility] HospitalIn the event this information is protected by the Federal Confidentiality of Alcohol and Drug Abuse Patient Records regulations: The Federal rules restrict any use of the information to criminally investigate or prosecute any alcohol or drug abuse patient.[facility] HospitalIn the event this information is protected by the Federal Confidentiality of Alcohol and Drug Abuse Patient Records regulations: The Federal rules restrict any use of the information to criminally investigate or prosecute any alcohol or drug abuse patient.[facility] HospitalIn the event this information is protected by the Federal Confidentiality of Alcohol and Drug Abuse Patient Records regulations: The Federal rules restrict any use of the information to criminally investigate or prosecute any alcohol or drug abuse patient.[facility] HospitalIn the event this information is protected by the Federal Confidentiality of Alcohol and Drug Abuse Patient Records regulations: The Federal rules restrict any use of the information to criminally investigate or prosecute any alcohol or drug abuse patient.[facility] HospitalIn the event this information is protected by the Federal Confidentiality of Alcohol and Drug Abuse Patient Records regulations: The Federal rules restrict any use of the information to criminally investigate or prosecute any alcohol or drug abuse patient.[facility] HospitalIn the event this information is protected by the Federal Confidentiality of Alcohol and Drug Abuse Patient Records regulations: The Federal rules restrict any use of the information to criminally investigate or prosecute any alcohol or drug abuse patient.[facility] HospitalIn the event this information is protected by the Federal Confidentiality of Alcohol and Drug Abuse Patient Records regulations: The Federal rules restrict any use of the information to criminally investigate or prosecute any alcohol or drug abuse patient.[facility] HospitalIn the event this information is protected by the Federal Confidentiality of Alcohol and Drug Abuse Patient Records regulations: The Federal rules restrict any use of the information to criminally investigate or prosecute any alcohol or drug abuse patient.[facility] HospitalIn the event this information is protected by the Federal Confidentiality of Alcohol and Drug Abuse Patient Records regulations: The Federal rules restrict any use of the information to criminally investigate or prosecute any alcohol or drug abuse patient.[facility] HospitalIn the event this information is protected by the Federal Confidentiality of Alcohol and Drug Abuse Patient Records regulations: The Federal rules restrict any use of the information to criminally investigate or prosecute any alcohol or drug abuse patient.[facility] HospitalIn the event this information is protected by the Federal Confidentiality of Alcohol and Drug Abuse Patient Records regulations: The Federal rules restrict any use of the information to criminally investigate or prosecute any alcohol or drug abuse patient.[facility] HospitalIn the event this information is protected by the Federal Confidentiality of Alcohol and Drug Abuse Patient Records regulations: The Federal rules restrict any use of the information to criminally investigate or prosecute any alcohol or drug abuse patient.[facility] HospitalIn the event this information is protected by the Federal Confidentiality of Alcohol and Drug Abuse Patient Records regulations: The Federal rules restrict any use of the information to criminally investigate or prosecute any alcohol or drug abuse patient.[facility] HospitalIn the event this information is protected by the Federal Confidentiality of Alcohol and Drug Abuse Patient Records regulations: The Federal rules restrict any use of the information to criminally investigate or prosecute any alcohol or drug abuse patient.[facility] HospitalIn the event this information is protected by the Federal Confidentiality of Alcohol and Drug Abuse Patient Records regulations: The Federal rules restrict any use of the information to criminally investigate or prosecute any alcohol or drug abuse patient.[facility] HospitalIn the event this information is protected by the Federal Confidentiality of Alcohol and Drug Abuse Patient Records regulations: The Federal rules restrict any use of the information to criminally investigate or prosecute any alcohol or drug abuse patient.[facility] HospitalIn the event this information is protected by the Federal Confidentiality of Alcohol and Drug Abuse Patient Records regulations: The Federal rules restrict any use of the information to criminally investigate or prosecute any alcohol or drug abuse patient.[facility] HospitalIn the event this information is protected by the Federal Confidentiality of Alcohol and Drug Abuse Patient Records regulations: The Federal rules restrict any use of the information to criminally investigate or prosecute any alcohol or drug abuse patient.[facility] HospitalIn the event this information is protected by the Federal Confidentiality of Alcohol and Drug Abuse Patient Records regulations: The Federal rules restrict any use of the information to criminally investigate or prosecute any alcohol or drug abuse patient.[facility] HospitalIn the event this information is protected by the Federal Confidentiality of Alcohol and Drug Abuse Patient Records regulations: The Federal rules restrict any use of the information to criminally investigate or prosecute any alcohol or drug abuse patient.[facility] HospitalIn the event this information is protected by the Federal Confidentiality of Alcohol and Drug Abuse Patient Records regulations: The Federal rules restrict any use of the information to criminally investigate or prosecute any alcohol or drug abuse patient.[facility] HospitalIn the event this information is protected by the Federal Confidentiality of Alcohol and Drug Abuse Patient Records regulations: The Federal rules restrict any use of the information to criminally investigate or prosecute any alcohol or drug abuse patient.[facility] HospitalIn the event this information is protected by the Federal Confidentiality of Alcohol and Drug Abuse Patient Records regulations: The Federal rules restrict any use of the information to criminally investigate or prosecute any alcohol or drug abuse patient.[facility] HospitalIn the event this information is protected by the Federal Confidentiality of Alcohol and Drug Abuse Patient Records regulations: The Federal rules restrict any use of the information to criminally investigate or prosecute any alcohol or drug abuse patient.[facility] HospitalIn the event this information is protected by the Federal Confidentiality of Alcohol and Drug Abuse Patient Records regulations: The Federal rules restrict any use of the information to criminally investigate or prosecute any alcohol or drug abuse patient.[facility] HospitalIn the event this information is protected by the Federal Confidentiality of Alcohol and Drug Abuse Patient Records regulations: The Federal rules restrict any use of the information to criminally investigate or prosecute any alcohol or drug abuse patient.[facility] HospitalIn the event this information is protected by the Federal Confidentiality of Alcohol and Drug Abuse Patient Records regulations: The Federal rules restrict any use of the information to criminally investigate or prosecute any alcohol or drug abuse patient.[facility] HospitalIn the event this information is protected by the Federal Confidentiality of Alcohol and Drug Abuse Patient Records regulations: The Federal rules restrict any use of the information to criminally investigate or prosecute any alcohol or drug abuse patient.[facility] HospitalIn the event this information is protected by the Federal Confidentiality of Alcohol and Drug Abuse Patient Records regulations: The Federal rules restrict any use of the information to criminally investigate or prosecute any alcohol or drug abuse patient.[facility] HospitalIn the event this information is protected by the Federal Confidentiality of Alcohol and Drug Abuse Patient Records regulations: The Federal rules restrict any use of the information to criminally investigate or prosecute any alcohol or drug abuse patient.[facility] HospitalIn the event this information is protected by the Federal Confidentiality of Alcohol and Drug Abuse Patient Records regulations: The Federal rules restrict any use of the information to criminally investigate or prosecute any alcohol or drug abuse patient.[facility] HospitalIn the event this information is protected by the Federal Confidentiality of Alcohol and Drug Abuse Patient Records regulations: The Federal rules restrict any use of the information to criminally investigate or prosecute any alcohol or drug abuse patient.[facility] HospitalIn the event this information is protected by the Federal Confidentiality of Alcohol and Drug Abuse Patient Records regulations: The Federal rules restrict any use of the information to criminally investigate or prosecute any alcohol or drug abuse patient.[facility] HospitalIn the event this information is protected by the Federal Confidentiality of Alcohol and Drug Abuse Patient Records regulations: The Federal rules restrict any use of the information to criminally investigate or prosecute any alcohol or drug abuse patient.[facility] HospitalIn the event this information is protected by the Federal Confidentiality of Alcohol and Drug Abuse Patient Records regulations: The Federal rules restrict any use of the information to criminally investigate or prosecute any alcohol or drug abuse patient.[facility] HospitalIn the event this information is protected by the Federal Confidentiality of Alcohol and Drug Abuse Patient Records regulations: The Federal rules restrict any use of the information to criminally investigate or prosecute any alcohol or drug abuse patient.[facility] HospitalIn the event this information is protected by the Federal Confidentiality of Alcohol and Drug Abuse Patient Records regulations: The Federal rules restrict any use of the information to criminally investigate or prosecute any alcohol or drug abuse patient.[facility] HospitalIn the event this information is protected by the Federal Confidentiality of Alcohol and Drug Abuse Patient Records regulations: The Federal rules restrict any use of the information to criminally investigate or prosecute any alcohol or drug abuse patient.[facility] HospitalIn the event this information is protected by the Federal Confidentiality of Alcohol and Drug Abuse Patient Records regulations: The Federal rules restrict any use of the information to criminally investigate or prosecute any alcohol or drug abuse patient.[facility] HospitalIn the event this information is protected by the Federal Confidentiality of Alcohol and Drug Abuse Patient Records regulations: The Federal rules restrict any use of the information to criminally investigate or prosecute any alcohol or drug abuse patient.[facility] HospitalIn the event this information is protected by the Federal Confidentiality of Alcohol and Drug Abuse Patient Records regulations: The Federal rules restrict any use of the information to criminally investigate or prosecute any alcohol or drug abuse patient.[facility] HospitalIn the event this information is protected by the Federal Confidentiality of Alcohol and Drug Abuse Patient Records regulations: The Federal rules restrict any use of the information to criminally investigate or prosecute any alcohol or drug abuse patient.[facility] HospitalIn the event this information is protected by the Federal Confidentiality of Alcohol and Drug Abuse Patient Records regulations: The Federal rules restrict any use of the information to criminally investigate or prosecute any alcohol or drug abuse patient.[facility] HospitalIn the event this information is protected by the Federal Confidentiality of Alcohol and Drug Abuse Patient Records regulations: The Federal rules restrict any use of the information to criminally investigate or prosecute any alcohol or drug abuse patient.[facility] HospitalIn the event this information is protected by the Federal Confidentiality of Alcohol and Drug Abuse Patient Records regulations: The Federal rules restrict any use of the information to criminally investigate or prosecute any alcohol or drug abuse patient.[facility] HospitalIn the event this information is protected by the Federal Confidentiality of Alcohol and Drug Abuse Patient Records regulations: The Federal rules restrict any use of the information to criminally investigate or prosecute any alcohol or drug abuse patient.[facility] HospitalIn the event this information is protected by the Federal Confidentiality of Alcohol and Drug Abuse Patient Records regulations: The Federal rules restrict any use of the information to criminally investigate or prosecute any alcohol or drug abuse patient.[facility] HospitalIn the event this information is protected by the Federal Confidentiality of Alcohol and Drug Abuse Patient Records regulations: The Federal rules restrict any use of the information to criminally investigate or prosecute any alcohol or drug abuse patient.[facility] HospitalIn the event this information is protected by the Federal Confidentiality of Alcohol and Drug Abuse Patient Records regulations: The Federal rules restrict any use of the information to criminally investigate or prosecute any alcohol or drug abuse patient.[facility] HospitalIn the event this information is protected by the Federal Confidentiality of Alcohol and Drug Abuse Patient Records regulations: The Federal rules restrict any use of the information to criminally investigate or prosecute any alcohol or drug abuse patient.[facility] HospitalIn the event this information is protected by the Federal Confidentiality of Alcohol and Drug Abuse Patient Records regulations: The Federal rules restrict any use of the information to criminally investigate or prosecute any alcohol or drug abuse patient.[facility] HospitalIn the event this information is protected by the Federal Confidentiality of Alcohol and Drug Abuse Patient Records regulations: The Federal rules restrict any use of the information to criminally investigate or prosecute any alcohol or drug abuse patient.[facility] HospitalIn the event this information is protected by the Federal Confidentiality of Alcohol and Drug Abuse Patient Records regulations: The Federal rules restrict any use of the information to criminally investigate or prosecute any alcohol or drug abuse patient.[facility] HospitalIn the event this information is protected by the Federal Confidentiality of Alcohol and Drug Abuse Patient Records regulations: The Federal rules restrict any use of the information to criminally investigate or prosecute any alcohol or drug abuse patient.[facility] HospitalIn the event this information is protected by the Federal Confidentiality of Alcohol and Drug Abuse Patient Records regulations: The Federal rules restrict any use of the information to criminally investigate or prosecute any alcohol or drug abuse patient.[facility] HospitalIn the event this information is protected by the Federal Confidentiality of Alcohol and Drug Abuse Patient Records regulations: The Federal rules restrict any use of the information to criminally investigate or prosecute any alcohol or drug abuse patient.[facility] HospitalIn the event this information is protected by the Federal Confidentiality of Alcohol and Drug Abuse Patient Records regulations: The Federal rules restrict any use of the information to criminally investigate or prosecute any alcohol or drug abuse patient.[facility] HospitalIn the event this information is protected by the Federal Confidentiality of Alcohol and Drug Abuse Patient Records regulations: The Federal rules restrict any use of the information to criminally investigate or prosecute any alcohol or drug abuse patient.[facility] HospitalIn the event this information is protected by the Federal Confidentiality of Alcohol and Drug Abuse Patient Records regulations: The Federal rules restrict any use of the information to criminally investigate or prosecute any alcohol or drug abuse patient.[facility] Reason for Visit (unrecogniz ed section [...] Treatment Specialty Diagnoses / Procedures Referred By Contac t Referred To Contact Diagnoses Iron deficiency anemia, unspecified iron deficiency anemia type Elizabet Baker DO [address] [place] [address] [facility] [address] [place] [address] Referral ID Status Reason Start Date Expiration Date V isits Requested Visits Authorized [id number] Authorized 11/18/2023 02/16/2024 99 99 Reason Comments Benefits Investigation Specialty Diagnoses / Procedures [facility] Referred To Contact Diagnoses Iron deficiency anemia, unspecified iron deficiency anemia type Elizabet Baker, DO [address] [place] [address] [facility] [address] [place] [address] Reason Comments Refill Request Reason Comments Transition Of Care Reason Comments Results Reason Onset Date Comments [facility] Of Care [facility] Reason Comments Urinary Problem Burning, urgency, pr essure x 2 weeks Reason Comments Burn hot rice bag on back -blistered x 1 week Reason Onset Date Comments Refill Request 02/19/2024 Reason Comments Established Patient Reason Onset Date Comments Refill Request 03/03/2024 Specialty Diagnoses / Procedures Referred By Yovani Referred To Contact CT IMAGING Diagnoses MGUS (monoclonal gammopathy of unknown significance) Procedures CT WHOLE BODY SKULL TO KNEE WO IVCON UNLISTED COMPUTED TOMOGRAPHY PROCEDURE CT HEART NO CONTRAST QUANT EVAL CORONRY CALCIUM Elizabet Baker, DO [address] [place] [address] [place] [address] Referral ID Status Reason Start Date Expiration Date V isits Requested Visits Authorized [id number] Closed Auto-Generate d Referral 02/26/2024 03/27/2025 1 1 Reason Comments Breathing Problem Reason Comments verbal orders Reason Comments Radiology MRI Reason Comments 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 Reason Comments Follow Up Hosp follow up for C HF Reason Comments Home Health: Nursing Plan of Care Order Question Reason Onset Date Comments Refill Request 04/15/2024 Reason Comments [facility] Reason Comments Patient [...] gy Reason Onset Date Comments Results 02/06/2025 Reason Comments [facility] Call Reason Comments medication interactions POC Reason Onset Date Comments Transition Of Care 02/13/2025 Reason Onset Date Comments Refill Request 02/23/2025 Reason Comments Positive FIT test Recheck Specialty Diagnoses / Procedures Referred By Yovani t Referred To Contact Gastroenterology Diagnoses Anemia, unspecified type Positive fecal occult blood test Procedures OFFICE/OUTPATIENT [facility] 60 MINUTES Carlos House, DEANNA.[employer] [address] [place] [address] Phone: tel: fax: Referral ID Status Reason Start Date Expiration Date V isits Requested Visits Authorized [id number] Closed PCP Requested Referral 02/22/2025 02/22/2026 1 1 Reason Comments Recheck 4 week f/u weakness Care Teams (unrecognized sec tion and content) Security Manager Relationship Specialty Start Date End Date Victor M Rocha MD [address] [place] [address] PCP - General Family Practice 09/17/10 Victor M Rocha MD [address] [place] [address] Family Practice 09/17/10 Security Manager Relationship Specialty Start Date End Date Victor M Rocha MD [address] [place] [address] PCP - General Family Practice 09/17/10 Victor M Rocha MD [address] [place] [address] Family Practice 09/17/10 Security Manager Relationship Specialty Start Date End Date Victor M Rocha MD [address] [place] [address] PCP - General Family Practice 09/17/10 Victor M Rocha MD [address] [place] [address] Family Practice 09/17/10 Security Manager Relationship Specialty Start Date End Date Victor M Rocha MD [address] [place] [address] PCP - General Family Medicine 09/17/10 Victor M Rocha MD [address] [facility] [address] Family Medicine 09/17/10 Team Status: Active Member [...] Dr. Prema Degroot MD Emergency Provider Active Security Manager Relationship Specialty Start Date End Date Victor M Rocha MD [address] [place] [address] PCP - General Family Medicine 09/17/10 Victor M Rocha MD [address] [place] [address] Family Medicine 09/17/10 Security Manager Relationship Specialty Start Date End Date Victor M Rocha MD [address] [place] [address] PCP - General Family Medicine 09/17/10 Victor M Rocha MD [address] [place] [address] Family Medicine 09/17/10 Security Manager Relationship Specialty Start Date End Date Victor M Rocha MD [address] [place] [address] PCP - General Family Medicine 09/17/10 Victor M Rocha MD [address] [place] [address] Family Medicine 09/17/10 Security Manager Relationship Specialty Start Date End Date Victor M Rocha MD [address] [place] [address] PCP - General Family Medicine 09/17/10 Victor M Rocha MD [address] [place] [address] Family Medicine 09/17/10 Security Manager Relationship Specialty Start Date End Date Victor M Rocha MD [address] [place] [address] PCP - General Family Medicine 09/17/10 Victor M Rocha MD [address] [place] [address] Family Medicine 09/17/10 Team Status: Inactive Member [...] Dr. Vinny Root MD Attending Provider Active Security Manager Relationship Specialty Start Date End Date Victor M Rocha MD [address] [place] [address] PCP - General Family Medicine 09/17/10 Victor M Rocha MD [address] [place] [address] Family Medicine 09/17/10 Security Manager Relationship Specialty Start Date End Date Victor M Rocha MD [address] [place] [address] PCP - General Family Medicine 09/17/10 Victor M Rocha MD [address] [place] [address] Family Medicine 09/17/10 Team Status: Inactive Member Role Status Dates Dr. Victor M Rocha MD Primary Care Provider Active Jignesh Thomas MD Emergency Provider Active Security Manager Relationship Specialty Start Date End Date Victor M Rocha MD [address] [place] [address] PCP - General Family Medicine 09/17/10 Victor M Rocha MD [address] [place] [address] Family Medicine 09/17/10 Security Manager Relationship Specialty Start Date End Date Victor M Rocha MD [address] [place] [address] PCP - General Family Medicine 09/17/10 Victor M Rocha MD [address] [place] [address] Family Medicine 09/17/10 Security Manager Relationship Specialty Start Date End Date Victor M Rocha MD [address] [place] [address] PCP - General Family Medicine 09/17/10 Victor M Rocha MD [address] [place] [address] Family Medicine 09/17/10 Security Manager Relationship Specialty Start Date End Date Victor M Rocha MD [address] [place] [address] PCP - General Family Medicine 09/17/10 Victor M Rocha MD [address] [place] [address] Family Medicine 09/17/10 Security Manager Relationship Specialty Start Date End Date Victor M Rocha MD [address] [place] [address] PCP - General Family Medicine 09/17/10 Victor M Rocha MD [address] [place] [address] Family Medicine 09/17/10 Security Manager Relationship Specialty Start Date End Date Victor M Rocha MD [address] [place] [address] PCP - General Family Medicine 09/17/10 Victor M Rocha MD [address] [place] [address] Family Medicine 09/17/10 Security Manager Relationship Specialty Start Date End Date Victor M Rocha MD [address] [place] [address] PCP - General Family Medicine 09/17/10 Victor M Rocha MD [address] [place] [address] Family Medicine 09/17/10 Security Manager Relationship Specialty Start Date End Date Victor M Rocha MD [address] [place] [address] PCP - General Family Medicine 09/17/10 Victor M Rocha MD [address] [place] [address] Family Medicine 09/17/10 Security Manager Relationship Specialty Start Date End Date Victor M Rocha MD [address] [place] [address] PCP - General Family Medicine 09/17/10 Victor M Rocha MD [address] [place] [address] Family Medicine 09/17/10 Security Manager Relationship Specialty Start Date End Date Victor M Rocha MD [address] [place] [address] PCP - General Family Medicine 09/17/10 Victor M Rocha MD [address] [place] [address] Family Medicine 09/17/10 Security Manager Relationship Specialty Start Date End Date Victor M Rocha MD [address] [place] [address] PCP - General Family Medicine 09/17/10 Victor M Rocha MD [address] [place] [address] Family Medicine 09/17/10 Security Manager Relationship Specialty Start Date End Date Victor M Rocha MD [address] [place] [address] PCP - General Family Medicine 09/17/10 Victor M Rocha MD [address] [place] [address] Family Medicine 09/17/10 Security Manager Relationship Specialty Start Date End Date Victor M Rocha MD [address] [place] [address] PCP - General Family Medicine 09/17/10 Victor M Rocha MD [address] [place] [address] Family Medicine 09/17/10 Security Manager Relationship Specialty Start Date End Date Victor M Rocha MD [address] [place] [address] PCP - General Family Medicine 09/17/10 Victor M Rocha MD [address] [place] [address] Family Medicine 09/17/10 Security Manager Relationship Specialty Start Date End Date Victor M Rocha MD [address] [place] [address] PCP - General Family Medicine 09/17/10 Victor M Rocha MD [address] [place] [address] Family Medicine 09/17/10 Brittny Rivero, NIYA [address] [place] [address] Primary Care Vulcanizer 12/18/23 Security Manager Relationship Specialty Start Date End Date Victor M Rocha MD [address] [place] [address] PCP - General Family Medicine 09/17/10 Victor M Rocha MD [address] [place] [address] Family Medicine 09/17/10 Brittny Rivero, RN [address] [place] [address] Primary Care Vulcanizer 12/18/23 Security Manager Relationship Specialty Start Date End Date Victor M Rocha MD [address] [place] [address] PCP - General Family Medicine 09/17/10 Victor M Rocha MD [address] [place] [address] Family Medicine 09/17/10 Brittny Rivero, RN [address] [place] [address] Primary Care Vulcanizer 12/18/23 Security Manager Relationship Specialty Start Date End Date Victor M Rocha MD [address] [place] [address] PCP - General Family Medicine 09/17/10 Victor M Rocha MD [address] [place] [address] Family Medicine 09/17/10 Brittny Rivero, RN [address] [place] [address] Primary Care Vulcanizer 12/18/23 Security Manager Relationship Specialty Start Date End Date iVctor M Rocha MD [address] [place] [address] PCP - General Family Medicine 09/17/10 Victor M Rocha MD [address] [place] [address] Family Medicine 09/17/10 Brittny Rivero, RN [address] [place] [address] Primary Care Vulcanizer 12/18/23 Security Manager Relationship Specialty Start Date End Date Victor M Rocha MD [address] [place] [address] PCP - General Family Medicine 09/17/10 Victor M Rocha MD [address] [place] [address] Family Medicine 09/17/10 Brittny Rivero, NIYA [address] [place] [address] Primary Care Vulcanizer 12/18/23 Security Manager Relationship Specialty Start Date End Date Victor M Rocha MD [address] [place] [address] PCP - General Family Medicine 09/17/10 Victor M Rocha MD [address] [place] [address] Family Medicine 09/17/10 Security Manager Relationship Specialty Start Date End Date Victor M Rocha MD [address] [place] [address] PCP - General Family Medicine 09/17/10 Victor M Rocha MD [address] [place] [address] Family Medicine 09/17/10 Security Manager Relationship Specialty Start Date End Date Victor M Rocha MD [address] [place] [address] PCP - General Family Medicine 09/17/10 Victor M Rocha MD [address] [place] [address] Family Medicine 09/17/10 Security Manager Relationship Specialty Start Date End Date Victor M Rocha MD [address] [place] [address] PCP - General Family Medicine 09/17/10 Victor M Rocha MD [address] [place] [address] Family Medicine 09/17/10 Security Manager Relationship Specialty Start Date End Date Victor M Rocha MD [address] [place] [address] PCP - General Family Medicine 09/17/10 Victor M Rocha MD [address] [place] [address] Family Medicine 09/17/10 Security Manager Relationship Specialty Start Date End Date Victor M Rocha MD [address] [place] [address] PCP - General Family Medicine 09/17/10 Victor M Rocha MD [address] [place] [address] Family Medicine 09/17/10 Pratik Luis, NIYA [address] [place] [address] Primary Care Vulcanizer 03/30/24 Security Manager Relationship Specialty Start Date End Date Victor M Rocha MD [address] [place] [address] PCP - General Family Medicine 09/17/10 Victor M Rocha MD [address] [place] [address] Family Medicine 09/17/10 Pratik Luis, NIYA [address] [place] [address] Primary Care Vulcanizer 03/30/24 Security Manager Relationship Specialty Start Date End Date Victor M Rocha MD [address] [place] [address] PCP - General Family Medicine 09/17/10 Victor M Rocha MD [address] [place] [address] Family Medicine 09/17/10 Pratik Luis, NIYA [address] [place] [address] Primary Care Vulcanizer 03/30/24 Security Manager Relationship Specialty Start Date End Date Victor M Rocha MD [address] [place] [address] PCP - General Family Medicine 09/17/10 Victor M Rocha MD [address] [place] [address] Family Medicine 09/17/10 Pratik Luis, NIYA [address] [place] [address] Primary Care Vulcanizer 03/30/24 Security Manager Relationship Specialty Start Date End Date Victor M Rocha MD [address] [place] [address] PCP - General Family Medicine 09/17/10 Victor M Rocha MD [address] [place] [address] Family Medicine 09/17/10 Pratik Luis, NIYA [address] [place] [address] Primary Care Vulcanizer 03/30/24 Security Manager Relationship Specialty Start Date End Date Victor M Rocha MD [address] [place] [address] PCP - General Family Medicine 09/17/10 Victor M Rocha MD [address] [place] [address] Family Medicine 09/17/10 Pratik Luis, NIYA [address] [place] [address] Primary Care Vulcanizer 03/30/24 Security Manager Relationship Specialty Start Date End Date Victor M Rocha MD [address] [place] [address] PCP - General Family Medicine 09/17/10 Victor M Rocha MD [address] [place] [address] Family Medicine 09/17/10 Security Manager Relationship Specialty Start Date End Date Victor M Rocha MD [address] [place] [address] PCP - General Family Medicine 09/17/10 Victor M Rocha MD [address] [place] [address] Family Medicine 09/17/10 Yovana Painter APRN.YARN DUMPER [address] [place] [address] Experience Design Director Family Medicine 06/19/24 Carlos House APRN.YARN DUMPER [address] [place] [address] Experience Design Director Family Medicine 06/28/24 Security Manager Relationship Specialty Start Date End Date Victor M Rocha MD [address] [place] [address] PCP - General Family Medicine 09/17/10 Victor M Rocha MD [address] [place] [address] Family Medicine 09/17/10 Yovana Painter APRN.YARN DUMPER [address] [facility] [place] [address] Experience Design Director Family Medicine 06/19/24 Carlos House APRN.YARN DUMPER [address] [place] [address] Experience Design Director Family Medicine 06/28/24 Prema Sampson, chain maker handPortfolio Specialist 09/05/24 Security Manager Relationship Specialty Start Date End Date Victor M Rocha MD [address] [place] [address] PCP - General Family Medicine 09/17/10 Victor M Rocha MD [address] [facility] [place] [address] Family Medicine 09/17/10 Yovana Painter, JET DYEING MACHINE OPERATOR.YARN DUMPER [address] [place] [address] Experience Design Director Family Medicine 06/19/24 Carlos House JET DYEING MACHINE OPERATOR.YARN DUMPER [address] [place] [address] Experience Design Director Family Medicine 06/28/24 Prema Sampson, chain maker handPortfolio Specialist 09/05/24 Security Manager Relationship Specialty Start Date End Date Victor M Rocha MD [address] [place] [address] PCP - General Family Medicine 09/17/10 Victor M Rocha MD [address] [place] [address] Family Medicine 09/17/10 Yovana Painter, JET DYEING MACHINE OPERATOR.YARN DUMPER [address] [facility] [place] [address] Experience Design Director Family Medicine 06/19/24 Carlos House, JET DYEING MACHINE OPERATOR.YARN DUMPER [address] [place] [address] Experience Design Director Family Medicine 06/28/24 Prema Sampson, chain maker handPortfolio Specialist 09/05/24 Security Manager Relationship Specialty Start Date End Date Victor M Rocha MD [address] [place] [address] PCP - General Family Medicine 09/17/10 Victor M Rocha MD [address] [place] [address] Family Medicine 09/17/10 Yovana Painter APRN.YARN DUMPER [address] [place] [address] Experience Design Director Family Medicine 06/19/24 Carlos House APRN.YARN DUMPER [address] [place] [address] Experience Design Director Family Medicine 06/28/24 Prema Sampson, chain maker handPortfolio Specialist 09/05/24 Security Manager Relationship Specialty Start Date End Date Victor M Rocha MD [address] [place] [address] PCP - General Family Medicine 09/17/10 Victor M Rocha MD [address] [place] [address] Family Medicine 09/17/10 Carlos House, JET DYEING MACHINE OPERATOR.YARN DUMPER [address] [place] [address] Experience Design Director Family Medicine 06/28/24 Prema Sampson RN Portfolio Specialist 09/05/24 Security Manager Relationship Specialty Start Date End Date Victor M Rocha MD [address] [place] [address] PCP - General Family Medicine 09/17/10 Victor M Rocha MD [address] [place] [address] Family Medicine 09/17/10 Carlos House APRN.YARN DUMPER [address] [place] [address] Experience Design Director Family Medicine 06/28/24 Prema Sampson, chain maker handPortfolio Specialist 09/05/24 Security Manager Relationship Specialty Start Date End Date Victor M Rocha MD [address] [facility], [place] [address] PCP - General Family Medicine 09/17/10 Victor M Rocha MD [address] [place], [place] [address] Family Medicine 09/17/10 Carlos House APRN.YARN DUMPER [address] [place] [address] Experience Design Director Family Medicine 06/28/24 Prema Sampson RN Portfolio Specialist 09/05/24 Team Status: Active Member Role/Relationship Status [...] 18, 2024 End: November 18, 2024 Amber BRISCOE, PA Attending Provider Active Start: November 18, 2024 End: November 18, 2024 Team Status: Inactive Member Role/Relationship Status Dates Dr. Victor M Rocha MD Primary Care Provider Active Start: January 09, 2025 End: January 09, 2025 Dr. Vinny Root MD Attending Provider Active S tart: January 09, 2025 End: January 09, 2025 Security Manager Relationship Specialty Start Date End Date Victor M Rocha MD [address] [place] [address] PCP - General Family Medicine 09/17/10 Victor M Rocha MD [address] [place] [address] Family Medicine 09/17/10 Carlos House APRN.YARN DUMPER [address] [place] [address] Experience Design Director Family Medicine 06/28/24 Prema Sampson, chain maker handPortfolio Specialist 09/05/2402/02 Security Manager Relationship Specialty Start Date End Date Victor M Rocha MD [address] [place] [address] PCP - General Family Medicine 09/17/10 Victor M Rocha MD [address] [place] [address] Family Medicine 09/17/10 Carlos House APRN.YARN DUMPER [address] [place] [address] Experience Design Director Family [facility] 06/28/24 Security Manager Relationship Specialty Start Date End Date Victor M Rocha MD [address] [place] [address] PCP - General Family Medicine 09/17/10 Victor M Rocha MD [address] [place] [address] Family Medicine 09/17/10 Carlos House APRN.YARN DUMPER [address] [place] [address] [facility] Security Manager Relationship Specialty Start Date End Date Victor M Rocha MD [address] [place], [place] [address] PCP - General Family Medicine 09/17/10 Victor M Rocha MD [address] [place], [place] [address] Family Medicine 09/17/10 Carlos House APRN.YARN DUMPER [address] [place], [place] [address] [facility] 06/28/24 Team Status: Active Member Role/Relationship Status Dates [...] January 09, 2025 End: January 09, 2025 Team Status: Inactive Member Role/Relationship Status Dates Dr. Victor M Rocha MD Primary Care Provider Active Start: January 10, 2025 Dr. Brenda Li MD Attending Provider Active Start: January 10, 2025 Team Status: Active Member Role/Relationship Status Dates Dr. Victor M Rocha MD Primary Care Provider Active Start: February 08, 2025 Dr. Bernardo Judd DO Emergency Provider Active Start: February 08, 2025 Dr. Deandre Xiao DO Admit Provider Active Start: February 08, 2025 Dr. Deandre Xiao DO Attending Provider Active Start: February 08, 2025 Security Manager Relationship Specialty Start Date End Date Victor M Rocha MD [address] [facility], [place] [address] PCP - General Family Medicine 09/17/10 Victor M Rocha MD [address] [facility], [place] [address] Family Medicine 09/17/10 Carlos House, DEANNA.YARN DUMPER [address] [place], [place] [id number] Experience Design Director Family Medicine 06/28/24 Team Status: Inactive Member Role/Relationship Status Dates Dr. Victor M Rocha MD Primary Care Provider Active Start: February 08, 2025 End: February 10, 2025 Dr. Bernardo Judd DO Emergency Provider Active Start: February 08, 2025 End: February 10, 2025 Dr. Deandre Xiao DO Admit Provider Active Start: February 08, 2025 End: February 10, 2025 Dr. Deandre Xiao DO Other Provider Active Start: February 08, 2025 End: February 10, 2025 Dr. Joanne Vo MD Attending Provider Active Start: February 08, 2025 End: February 10, 2025 Team Status: Active Member Role/Relationship Status Dates Dr. Victor M Rocha MD Primary Care Provider Active Start: February 09, 2025 Dr. Vinny Root MD Attending Provider Active S tart: February 09, 2025 Team Status: Active Member Role/Relationship Status Dates Dr. Victor M Rocha MD Primary Care Provider Active Start: February 09, 2025 Dr. Bernardo Judd DO Emergency Provider Active Start: February 09, 2025 Dr. Deandre Xiao DO Admit Provider Active Start: February 09, 2025 Dr. Deandre Xiao DO Other Provider Active Start: February 09, 2025 Dr. Joanne Vo MD Attending Provider Active Start: February 09, 2025 Dr. Joanne Vo MD Other Provider Active St art: February 09, 2025 Team Status: Active Member Role/Relationship Status Dates Dr. Victor M Rocha MD Primary Care Provider Active Start: February 10, 2025 Dr. Bernardo Judd DO Emergency Provider Active Start: February 10, 2025 Dr. Deandre Xiao DO Admit Provider Active Start: February 10, 2025 Dr. Deandre Xiao DO Other Provider Active Start: February 10, 2025 Dr. Joanne Vo MD Attending Provider Active Start: February 10, 2025 Dr. Joanne Vo MD Other Provider Active St art: February 10, 2025 Team Status: Active Member Role/Relationship Status Dates Dr. Victor M Rocha MD Primary Care Provider Active Start: February 10, 2025 Dr. Bernardo Judd DO Emergency Provider Active Start: February 10, 2025 Dr. Deandre Xiao DO Admit Provider Active Start: February 10, 2025 Dr. Deandre Xiao DO Other Provider Active Start: February 10, 2025 Dr. Joanne Vo MD Other Provider Active St art: February 10, 2025 Dr. Brock Leroy DO Attending Provider Active Start: February 10, 2025 Security Manager Relationship Specialty Start Date End Date Victor M Rocha MD [address] [place] [address] PCP - General Family Medicine 09/17/10 Victor M Rocha MD [address] [place] [address] Family Medicine 09/17/10 Carlos House APRN.YARN DUMPER [address] [place] [address] Experience Design Director Family Medicine 06/28/24 Security Manager Relationship Specialty Start Date End Date Victor M Rocha MD [address] [place] [address] PCP - General Family Medicine 09/17/10 Victor M Rocha MD [address] [place], [place] [address] Family Medicine 09/17/10 Carlos House, JET DYEING MACHINE OPERATOR.YARN DUMPER [address] [place], [place] [address] Experience Design Director Family Medicine 06/28/24 Team Status: Active Member Role/Relationship Status Dates Dr. Victor M Rocha MD Primary Care Provider Active Start: February 11, 2025 Dr. Bernardo Judd DO Emergency Provider Active Start: February 11, 2025 Dr. Deandre Xiao DO Admit Provider Active Start: February 11, 2025 Dr. Deandre Xiao DO Other Provider Active Start: February 11, 2025 Dr. Joanne Vo MD Attending Provider Active Start: February 11, 2025 Dr. Joanne Vo MD Other Provider Active St art: February 11, 2025 Team Status: Inactive Member Role/Relationship Status Dates Dr. Victor M Rocha MD Primary Care Provider Active Start: February 21, 2025 End: February 21, 2025 Dr. Victor M Rocha MD Referring Provider Active Start: February 21, 2025 End: February 21, 2025 Phyllis Tovar CORPORATE RISK ANALYST, CORPORATE RISK ANALYST-C Attending Provider Active Start: February 21, 2025 End: February 21, 2025 Security Manager Relationship Specialty Start Date End Date Victor M Rocha MD [address] [place], [place] [id number] PCP - General Family Medicine 09/17/10 Victor M Rocha MD [address] [place], [place] [address] Family Medicine 09/17/10 Carlos House, DEANNA.YARN DUMPER [address] [place], [place] [id number] Experience Design Director [facility] 06/28/24 Security Manager Relationship Specialty Start Date End Date Victor M Rocha MD [address] [place], [place] [address] PCP - General Family Medicine 09/17/10 Victor M Rocha MD [address] [place], [place] [address] Family Medicine 09/17/10 Carlos House APRN.YARN DUMPER [address] [place], [place] [address] Experience Design Director [facility] 06/28/24 Team Status: Inactive Member Role/Relationship Status Dates Dr. Victor M Rocha MD Primary Care Provider Active Start: January 09, 2025 End: January 09, 2025 Dr. Vinny Root MD Attending Provider Active S tart: January 09, 2025 End: January 09, 2025 Team Status: Inactive Member Role/Relationship Status Dates Dr. Victor M Rocha MD Primary Care Provider Active Start: January 10, 2025 Dr. Brenda Li MD Attending Provider Active Start: January 10, 2025 Team Status: Inactive Member Role/Relationship Status Dates Dr. Victor M Rocha MD Primary Care Provider Active Start: February 08, 2025 End: February 10, 2025 Dr. Bernardo Judd DO Emergency Provider Active Start: February 08, 2025 End: February 10, 2025 Dr. Deandre Xiao DO Admit Provider Active Start: February 08, 2025 End: February 10, 2025 Dr. Deandre Xiao DO Other Provider Active Start: February 08, 2025 End: February 10, 2025 Dr. Joanne Vo MD Attending Provider Active Start: February 08, 2025 End: February 10, 2025 Team Status: Active Member Role/Relationship Status Dates Dr. Victor M Rocha MD Primary Care Provider Active Start: February 09, 2025 Dr. Vinny Root MD Attending Provider Active S tart: February 09, 2025 Team Status: Active Member Role/Relationship Status Dates Dr. Victor M Rocha MD Primary Care Provider Active Start: February 09, 2025 Dr. Bernardo Judd DO Emergency Provider Active Start: February 09, 2025 Dr. Deandre Xiao DO Admit Provider Active Start: February 09, 2025 Dr. Deandre Xiao DO Other Provider Active Start: February 09, 2025 Dr. Joanne Vo MD Attending Provider Active Start: February 09, 2025 Dr. Joanne Vo MD Other Provider Active St art: February 09, 2025 Team Status: Active Member Role/Relationship Status Dates Dr. Victor M Rocha MD Primary Care Provider Active Start: February 10, 2025 Dr. Bernardo Judd DO Emergency Provider Active Start: February 10, 2025 Dr. Deandre Xiao DO Admit Provider Active Start: February 10, 2025 Dr. Deandre Xiao DO Other Provider Active Start: February 10, 2025 Dr. Joanne Vo MD Attending Provider Active Start: February 10, 2025 Dr. Joanne Vo MD Other Provider Active St art: February 10, 2025 Team Status: Active Member Role/Relationship Status Dates Dr. Victor M Rocha MD Primary Care Provider Active Start: February 10, 2025 Dr. Bernardo Judd DO Emergency Provider Active Start: February 10, 2025 Dr. Deandre Xiao DO Admit Provider Active Start: February 10, 2025 Dr. Deandre Xiao DO Other Provider Active Start: February 10, 2025 Dr. Joanne Vo MD Referring Provider Active Start: February 10, 2025 Dr. Joanne Vo MD Other Provider Active St art: February 10, 2025 Dr. Brock Leroy DO Attending Provider Active Start: February 10, 2025 Team Status: Active Member Role/Relationship Status Dates Dr. Victor M Rocha MD Primary Care Provider Active Start: February 11, 2025 Dr. Bernardo Judd DO Emergency Provider Active Start: February 11, 2025 Dr. Deandre Xiao DO Admit Provider Active Start: February 11, 2025 Dr. Deandre Xiao DO Other Provider Active Start: February 11, 2025 Dr. Joanne Vo MD Attending Provider Active Start: February 11, 2025 Dr. Joanne Vo MD Other Provider Active St art: February 11, 2025 Team Status: Inactive Member Role/Relationship Status Dates Dr. Victor M Rocha MD Primary Care Provider Active Start: February 21, 2025 End: February 21, 2025 Dr. Victor M Rocha MD Referring Provider Active Start: February 21, 2025 End: February 21, 2025 Phyllis Tovar CORPORATE RISK ANALYST, CORPORATE RISK ANALYST-C Attending Provider Active Start: February 21, 2025 End: February 21, 2025 Team Status: Active Member Role/Relationship Status Dates Dr. Victor M Rocha MD Primary care physician Active Team Status: Inactive Member Role/Relationship Status Dates Dr. Victor M Rocha MD Primary care physician Active Start: January 09, 2025 End: January 09, 2025 Dr. Vinny Root MD Attending physician Active Start: January 09, 2025 End: January 09, 2025 Team Status: Inactive Member Role/Relationship Status Dates Dr. Victor M Rocha MD Primary care physician Active Start: January 10, 2025 Dr. Brenda Li MD Attending physician Active Start: January 10, 2025 Team Status: Inactive Member Role/Relationship Status Dates Dr. Victor M Rocha MD Primary care physician Active Start: February 08, 2025 End: February 10, 2025 Dr. Bernardo Judd DO Emergency Departm ent Physician Active Start: February 08, 2025 End: February 10, 2025 Dr. Deandre Xiao DO Admitting physician Active Start: February 08, 2025 End: February 10, 2025 Dr. Deandre Xiao DO Nurse Practitioner Active Start: February 08, 2025 End: February 10, 2025 Dr. Joanne Vo MD Attending physician Active Start: February 08, 2025 End: February 10, 2025 Team Status: Active Member Role/Relationship Status Dates Dr. Victor M Rocha MD Primary care physician Active Start: February 09, 2025 Dr. Vinny Root MD Attending physician Active Start: February 09, 2025 Team Status: Active Member Role/Relationship Status Dates Dr. Victor M Rocha MD Primary care physician Active Start: February 09, 2025 Dr. Bernardo Judd DO Emergency Department Physician Active Start: February 09, 2025 Dr. Deandre Xiao , DO Admitting physician Active Start: February 09, 2025 Dr. Deandre Xiao , DO Nurse Practitioner Active Start: February 09, 2025 Dr. Joanne Vo MD Attending physician Active Start: February 09, 2025 Dr. Joanne Vo MD Nurse Practitioner Active Start: February 09, 2025 Team Status: Active Member Role/Relationship Status Dates Dr. Victor M Rocha MD Primary care physician Active Start: February 10, 2025 Dr. Bernardo Judd , DO Emergency Departm ent Physician Active Start: February 10, 2025 Dr. Deandre Xiao DO Admitting physician Active Start: February 10, 2025 Dr. Deandre Xiao , DO Nurse Practitioner Active Start: February 10, 2025 Dr. Joanne Vo MD Attending physician Active Start: February 10, 2025 Dr. Joanne Vo MD Nurse Practitioner Active Start: February 10, 2025 Team Status: Active Member Role/Relationship Status Dates Dr. Victor M Rocha MD Primary care physician Active Start: February 10, 2025 Dr. Bernardo Judd DO Emergency Departm ent Physician Active Start: February 10, 2025 Dr. Deandre Xiao , DO Admitting physician Active Start: February 10, 2025 Dr. Deandre Xiao DO Nurse Practitioner Active Start: February 10, 2025 Dr. Joanne Vo MD Referring Provider Active Start: February 10, 2025 Dr. Joanne Vo MD Nurse Practitioner Active Start: February 10, 2025 Dr. Brock Leroy , Attending physician Active Start: February 10, 2025 Team Status: Active Member Role/Relationship Status Dates Dr. Victor M Rocha MD Primary care physician Active Start: February 11, 2025 Dr. Bernardo Judd DO Emergency Departm ent Physician Active Start: February 11, 2025 Dr. Deandre Xiao DO Admitting physician Active Start: February 11, 2025 Dr. Deandre Xiao DO Nurse Practitioner Active Start: February 11, 2025 Dr. Joanne Vo MD Attending physician Active Start: February 11, 2025 Dr. Joanne Vo MD Nurse Practitioner Active Start: February 11, 2025 Team Status: Inactive Member Role/Relationship Status Dates Dr. Victor M Rohca MD Primary care physician Active Start: February 21, 2025 End: February 21, 2025 Dr. Victor M Rocha MD Referring Provider Active Start: February 21, 2025 End: February 21, 2025 Phyllis Tovar CORPORATE RISK ANALYST, CORPORATE RISK ANALYST-C Attending physician Active Start: February 21, 2025 End: February 21, 2025 Team Status: Inactive Member Role/Relationship Status Dates Dr. Victor M Rocha MD Primary care physician Active Start: April 03, 2025 End: April 06, 2025 Dr. Corwin Shearer , DO Emergency Departme nt Physician Active Start: April 03, 2025 End: April 06, 2025 Dr. Ashli Bonner MD Admitting physician Active Start: April 03, 2025 End: April 06, 2025 Dr. Ashli Bonner MD Nurse Practitioner Active Start: April 03, 2025 End: April 06, 2025 Dr. Gunnar Mullen DO Attending physician Active Start: April 03, 2025 End: April 06, 2025 Dr. Adonis Rodriguez MD Nurse Practitioner Active Start: April 03, 2025 End: April 06, 2025 Team Status: Active Member Role/Relationship Status Dates Dr. Victor M Rocha MD Primary care physician Active Start: April 04, 2025 Dr. Corwin Shearer DO Emergency Departme nt Physician Active Start: April 04, 2025 Dr. Ashli Bonner MD Admitting physician Active Start: April 04, 2025 Dr. Ashli Bonner MD Nurse Practitioner Active Start: April 04, 2025 Dr. Adonis Rodriguez MD Nurse Practitioner Active Start: April 04, 2025 Dr. Gunnar Mullen DO Attending physician Active Start: April 04, 2025 Dr. Gunnar Mullen DO Nurse Practitioner Active Start: April 04, 2025 Team Status: Active Member Role/Relationship Status Dates Dr. Victor M Rocha MD Primary care physician Active Start: April 05, 2025 Dr. Corwin Shearer DO Emergency Departme nt Physician Active Start: April 05, 2025 Dr. Ashli Bonner MD Admitting physician Active Start: April 05, 2025 Dr. Ashli Bonner MD Nurse Practitioner Active Start: April 05, 2025 Dr. Gunnar Mullen DO Attending physician Active Start: April 05, 2025 Dr. Gunnar Mullen DO Nurse Practitioner Active Start: April 05, 2025 Dr. Adonis Rodriguez MD Nurse Practitioner Active Start: April 05, 2025 Team Status: Active Member Role/Relationship Status Dates Dr. Victor M Rocha MD Primary care physician Active Start: April 06, 2025 Dr. Corwin Shearer DO Emergency Departme nt Physician Active Start: April 06, 2025 Dr. Ashli Bonner MD Admitting physician Active Start: April 06, 2025 Dr. Ashli Bonner MD Nurse Practitioner Active Start: April 06, 2025 Dr. Gunnar Mullen DO Attending physician Active Start: April 06, 2025 Dr. Gunnar Mullen DO Nurse Practitioner Active Start: April 06, 2025 Dr. Adonis Rodriguez MD Nurse Practitioner Active Start: April 06, 2025 Goals (unrecognized section and content) Goals may [...] BE BASED ON THE PRIMARY CLINICAL RECORDS. [facility] [employer] [facility]. provides no warranty or guarantee of the accuracy or completeness of information in this document.
--- NOTE | 2025-04-29 11:00 | RAD_ITS ---
PROCEDURE: HIP, UNI W/ PELVIS 2-3 VIEWS 04/29/2025 REASON FOR EXAM: FALL/INJURY TECHNIQUE: Procedure Code: RAD Modality: DX Procedure: HIP, UNI W/ PELVIS 2-3 VIEWS Laterality: Right COMPARISON: XR LEFT HIP W/ PELVIS, 04/04/2025 FINDINGS: BONES: Acute fracture in the subcapital region of the right femoral neck with coxa vara morphology. Partially imaged left hip arthroplasty hardware, which appears intact. JOINTS: No dislocation. Moderately narrowed right hip joint. Sclerosis of the pubic symphysis and both sacroiliac joints. SOFT TISSUES: Asymmetric soft tissue swelling along the right hip. RAD/HIP, UNI W/ Pelvis 2-3 Views IMPRESSION: Acute subcapital right femoral neck fracture. Reading Location: [id number]
--- NOTE | 2025-04-29 11:00 | RAD_ITS ---
PROCEDURE: CHEST 1 VIEW (PORTABLE) 04/29/2025 REASON FOR EXAM: FALL TECHNIQUE: Frontal view of the chest. COMPARISON: 04/03/2025 FINDINGS: LINES: Left-sided pacemaker device with right atrial and right ventricular leads. LUNGS AND PLEURA: No focal airspace consolidation. Mildly increased interstitial lung markings again seen bilaterally. No pleural effusion or pneumothorax. HEART AND MEDIASTINUM: The cardiac silhouette is enlarged. The mediastinal contour is normal. AORTA: Calcified thoracic aorta. BONES: No acute osseous abnormality. Similar-appearing T8, T11 and T12 compression deformities with prior T8 kyphoplasty. RAD/Chest 1 View (Portable) IMPRESSION: No Acute Findings. Reading Location: [id number]
[2025-04-29 11:05] LABS: Hematocrit 40.5 % (37-47); Hemoglobin 13.1 g/dL (12.0-15.0); Immature Granulocytes Count 0.150 X10^3/uL (0.0-0.0); Mean Corp Hgb Conc 32.3 g/dL (32-36); Mean Corpuscular Volume 94.6 fL (81-99); Mean Platelet Vol. 10.9 fl (6.2-12.0); NRBC Flagged by Analyzer 0 % (0-5); Platelet Count 342 K/mm3 (150-450); RBC Distribution Width CV 16.4 % (11.6-14.6); RBC Distribution Width SD 55.3 fl (35.1-43.9); Red Blood Count 4.28 M/mm3 (4.2-5.4); White Blood Count 14.2 K/mm3 (4.4-11.0)
[2025-04-29 11:17] LABS: Anion Gap 14 (5-15); BUN 20 mg/dL (4-19); BUN/Creat Ratio 17.0 RATIO (10-20); Calcium,Total 9.9 mg/dL (7.6-11.0); Carbon Dioxide 25.1 mmol/L (21.0-32.0); Chloride 96 mmol/L (98-108); Estimated Creatinine Clearance 39.28 ml/min (50-250); Glucose 186 mg/dL (70-99); Potassium 3.5 mmol/L (3.3-5.1)
--- NOTE | 2025-04-29 11:55 | PCM.HP.STD ---
HPI - General General Date of Admission: 04/29/25 Date of Service: 04/29/25 Chief Complaint: Fall and hit her head and right lower extremity. No LOC HPI Narrative ANTONIO GUPTA, is a 84 F who was brought to ED by EMS from [facility] after she had a fall on her right hip and head. She complained of headache at the back but it has resolved. No LOC and no major trauma/hematoma and head CT which was negative for acute intracranial abnormalities. She was found to have acute subcapital right femoral neck fracture on hip/pelvic x-ray and further admitted for that. Orthopedic surgeon consulted. She recently had left femur nondisplaced fracture for which left hip cemented arthroplasty was done on 04/04. Complain of pain over the left hip, controlled on the pain medication. She is on Xarelto for for persistent atrial fibrillation. Vitals: Labs and imaging reviewed and discussed in assessment and plan [facility] Medical History Heart failure Overweight (BMI 25.0-29.9) Coronary artery disease Iron deficiency anemia History of non-ST elevation myocardial infarction (NSTEMI) (2013) Longstanding persistent atrial fibrillation Essential (primary) hypertension Anxiety Hypothyroidism Hyperlipidemia Secondary pulmonary arterial hypertension Atherosclerosis of coronary artery of [place] heart without angina pectoris Paroxysmal atrial fibrillation Paroxysmal atrial flutter Sick sinus syndrome Home Medications ?Medication ?Instructions ?Recorded ?Last Taken ?Type buspirone 15 mg tablet 15 mg PO TID ANXIETY 06/02/13 04/04/25 History omeprazole 40 mg capsule,delayed 40 mg PO DAILY ACID REFLUX 06/02/13 04/02/25 History release nitroglycerin 0.4 mg sublingual 0.4 mg sublingual Q5M PRN CHEST 04/21/15 Unknown History tablet PAIN amitriptyline 50 mg tablet 50 mg PO QHS DEPRESSION 02/17/23 04/02/25 History levothyroxine 100 mcg tablet 100 mcg PO DAILY THYROID 12/14/23 04/04/25 History (Synthroid) rivaroxaban 20 mg tablet (Xarelto) 20 mg PO QPM #90 tabs 10/06/24 04/02/25 Rx losartan 100 mg tablet 100 mg PO DAILY blood pressure #90 11/18/24 04/03/25 Rx tabs potassium chloride 20 mEq 40 meq (2 x 20 mEq) PO QDAY #90 11/21/24 04/02/25 Rx tablet,extended release(part/cryst) tabs metoprolol succinate 50 mg 50 mg PO DAILY heart/BP #90 tabs 11/23/24 04/04/25 Rx tablet,extended release 24 hr amlodipine 10 mg tablet 10 mg PO DAILY 02/08/25 04/02/25 History ferrous sulfate 325 mg (65 mg 65 mg PO DAILY 02/08/25 04/03/25 History iron) tablet (FeroSul) ascorbic acid (vitamin C) 500 mg 500 mg PO BID 04/03/25 04/03/25 History tablet (Vitamin C) acetaminophen 500 mg tablet 1,000 mg (2 x 500 mg) PO Q8 PRN 04/06/25 Unknown Rx pain #0 tabs oxycodone 5 mg tablet 5 mg PO TID 3 days #9 tabs 04/06/25 Unknown Rx atorvastatin 10 mg tablet (Lipitor) 10 mg PO QHS 04/29/25 Unknown History dapagliflozin propanediol 10 mg 10 mg PO DAILY 04/29/25 Unknown History tablet furosemide 40 mg tablet (Lasix) 40 mg PO Q12H water pill 04/29/25 Unknown History melatonin 5 mg tablet 5 mg PO QHS 04/29/25 Unknown History Allergy/AdvReac Type Severity Reaction Status Date / Time poison fany extract (Poison Allergy Rash Verified 04/29/25 10:19 Fany Extract) Sulfa (Sulfonamide Allergy Hives Verified 04/29/25 10:19 Antibiotics) Family History Mother Cancer Father Cancer Brother CAD (coronary artery disease) Sister CAD (coronary artery disease) Surgical History S/P kyphoplasty History of tubal ligation History of appendectomy History of hysterectomy History of left heart catheterization (10/09/13) History of coronary artery stent placement (09/2010) Hx of atrioventricular node ablation (03/31/16) Presence of cardiac pacemaker (04/26/15) Social History household members: spouse Smoking Status: Former smoker how long ago did patient quit smokin's alcohol intake: never substance use type: does not use caffeine: Yes Type: coffee Number of servings: 3 ROS ROS Narrative Constitutional: Reports chronic fatigue and weakness. No fever. HEENT: Reports systems reviewed and no addt'l complaints, except as documented Respiratory/Chest: No acute shortness of breath or respiratory distress or wheezing. CVS: No chest pain pressure or tightness Gastrointestinal: Denies coffee ground emesis, hematemesis or vomiting Genitourinary: Denies burning urination or new urinary tract symptoms Musculoskeletal: Recent left hip fracture status postsurgery. Right hip pain. Fall as described in HPI Neurologic: Denies seizure-like symptoms. skin: No ulcer. No rash Endocrinology: Reports systems reviewed and no addt'l complaints, except as documented Hematologic/Lymphatic: Reports systems reviewed and no addt'l complaints, except as documented Rest 14 ROS are negative except as mentioned in HPI Vital Signs Vital Signs Vital Signs: 04/29/25 10:14 04/29/25 10:19 04/29/25 10:19 Temperature 97.8 F Temperature Source Oral Pulse Rate 80 Respiratory Rate 18 26 H Respiratory Effort Normal Non-Labored Respiratory Depth Normal Respiratory Pattern Normal Blood Pressure 154/70 H Blood Pressure Mean 98 Pulse Ox 04/29/25 11:13 Temperature Temperature Source Pulse Rate 80 Respiratory Rate 18 Respiratory Effort Respiratory Depth Respiratory Pattern Blood Pressure 150/70 H Blood Pressure Mean 96 Pulse Ox 96 Weight Weight: 182 lb 1.629 oz Body Mass Index (BMI) 27.6 Physical Exam Narrative General: Alert, Oriented x3, Cooperative HEENT:Mild swelling/edema over parietal region but no hematoma. PERRLA, EOMI, Normocephalic. Oral: Oral mucosa moist. No Gingival or Mucosal Lesions/ Ulcerations Neck: Supple, No JVD, Negative Carotid Bruits Chest wall/Lungs: Air entry diminished in bilateral lung bases. No crepitation/rhonchi Cardiovascular: Paced rhythm. Systolic murmur Abdomen: Bowel Sounds Present, Soft, Non Tender, Non-Distended : No dysuria. No renal angle tenderness. No suprapubic tenderness. Extremities: No edema, Capillary Refill Less than 3 Seconds Skin: No rash. No ulcer. Left hip surgical incision well-healed. Musculoskeletal: Tenderness over the greater trochanter region of the right hip. RLE Short, externally rotated and flexed. Neurological: Cranial nerves II-XII grossly intact, DTR 2+/4. No acute focal neurological deficit. Psych/Mental Status: Normal Affect, Appropriate. Results Lab / Micro Data 04/29/25 10:25 04/29/25 10:25 Labs: Laboratory Results - last 24 hr 04/29/25 10:25: WBC 14.2 H, RBC 4.28, Hgb 13.1, Hct 40.5, MCV 94.6, MCH 30.6, MCHC 32.3, RDW Std Deviation 55.3 H, RDW Coeff of Jose Alberto 16.4 H, Plt Count 342, MPV 10.9, Immature Gran % (Auto) 1.100 H, Neut % (Auto) 84.8 H, Lymph % (Auto) 5.9 L, Harmon % (Auto) 7.7, Eos % (Auto) 0.2, Baso % (Auto) 0.3, Absolute Neuts (auto) 12.0 H, Absolute Lymphs (auto) 0.83, Nucleated RBC % 0, Sodium 135, Potassium 3.5, Chloride 96 L, Carbon Dioxide 25.1, Anion Gap 14, BUN 20 H, Creatinine 1.18, Estim Creat Clear Calc 39.28 L, Est GFR (MDRD) Non-Af 45 L, BUN/Creatinine Ratio 17.0, Glucose 186 H, Calcium 9.9 Rhythm Strip Rhythm Strip: paced Rate: 80 Ectopy: None Imaging Radiology Impression Brain CT 04/29/25 10:35 IMPRESSION: No acute intracranial abnormalities. Reading Location: [facility] Assessment & Plan Assessment/Plan (1) Closed right hip fracture: PLAN: Plan This 84 old female is being admitted for left hip subcapital fracture after fall and mild head injury but no laceration or LOC 1. Acute debility due to acute/subacute right right femoral neck fracture with recent history of left femoral neck fracture status post left hip cemented arthroplasty: [facility] X-ray shows acute fracture in subcapital region of right femoral neck with coxa vera morphology. Left hip arthroplasty hardware remains intact. No dislocation. Orthopedic surgeon Dr. Grier consulted from ED physician. Pain control, muscle relaxant. PT and OT ordered. Hold Xarelto. Bowel and bladder care. Twelve-lead EKG reviewed and shows V paced rhythm at 80 bpm. QTc 548 ms, prolonged because of pacemaker. Patient is moderately high risk for surgery because of history of multiple cardiac conditions including chronic HFpEF, persistent A-fib and severe pulmonary hypertension 2. Fall and mild head injury but no LOC or laceration: Mild leukocytosis probably due to fall, right hip fracture inflammatory reaction. No sign or symptoms of infection 3. Chronic HFpEF, compensated persistent A-fib/flutter/sick sinus syndrome with pacemaker, moderately severe TR, severe pulmonary hypertension: She had last dose of Xarelto yesterday evening on 04/28. She will need 2 days of Xarelto prior to surgery therefore surgery posted for Thursday.Echo in February 08, 2025: LVEF 65%, size and systolic function normal. Severe pulmonary hypertension, PASP 76 mmHg with 3+ TR. 1+ eccentric AI. 1+ PI. LA severely enlarged. 3. Type 2 diabetes mellitus: Glucose 186. Last A1c 6.7% on February 08. Accu-Chek before meals and at bedtime with Humalog sliding scale coverage and hypoglycemia protocol. Hold oral hypoglycemic agents 4. Hypothyroidism: Continue Synthroid. TSH 3.08 on February 08 5. Hypertension: BP 150/70, acceptable range as per her age. Continue antihypertensive medications 6. CAD status post previous stent: 7. Dyslipidemia on a statin continued 8. GERD, anxiety and depression: Home medication conciliation done. DVT prophylaxis was on Xarelto at home, hold it. Bilateral SCDs Living will/advanced directive/end of life care: Patient does have living will or advanced directive. Patient's is her POA. Patient daughter present in the room. After discussion of benefits/risks procedures involved with full code, DNR CC arrest and DNR CC, the patient opted for DNR CC arrest with no intubation. I informed the patient and the daughter that DNRCC status will be held during surgery and first 24 hours postop period. Patient doesn't want artificial life support including intubation, tube feed, ventilator and/chest compression, central venous catheter, vasopressor and DC shock if needed Total time spent in [id number] encounter in discussion of advanced directive 17 minutes. Laboratory Results 04/29/25 10:25: WBC 14.2 H, RBC 4.28, Hgb 13.1, Hct 40.5, MCV 94.6, MCH 30.6, MCHC 32.3, RDW Std Deviation 55.3 H, RDW Coeff of Jose Alberto 16.4 H, Plt Count 342, MPV 10.9, Immature Gran % (Auto) 1.100 H, Neut % (Auto) 84.8 H, Lymph % (Auto) 5.9 L, Harmon % (Auto) 7.7, Eos % (Auto) 0.2, Baso % (Auto) 0.3, Absolute Neuts (auto) 12.0 H, Absolute Lymphs (auto) 0.83, Nucleated RBC % 0, Sodium 135, Potassium 3.5, Chloride 96 L, Carbon Dioxide 25.1, Anion Gap 14, BUN 20 H, Creatinine 1.18, Estim Creat Clear Calc 39.28 L, Est GFR (MDRD) Non-Af 45 L, BUN/Creatinine Ratio 17.0, Glucose 186 H, Calcium 9.9 Clinical Impression(s) from Imaging Studies Brain CT 04/29/25 10:35 IMPRESSION: No acute intracranial abnormalities. Reading Location: [facility] Chest X-Ray 04/29/25 11:00 IMPRESSION: No Acute Findings. Hip/Pelvis X-Ray 04/29/25 11:00 IMPRESSION: Acute subcapital right femoral neck fracture. Charges/Coding Visit Charges Inpatient E&M: 30611 Init Hosp L3 Procedures Hospitalists Procedures: 24954 Advncd Care Plan 30 Min
--- OUTSIDE RECORDS SUMMARY | 2025-04-29 12:14 | XMS RPT_ITS | CCD ---
Author Organization [facility] Care Team Providers Care Aerotriangulation Specialist Name Role Phone Kristan Narvaez Unavailable [...] Rocha MD Primary Care Provider Victor M Rcoha MD Unavailable Victor M Rocha MD Primary [...] [phone] Dr. Vinny Root Attending Provider Victor M Rocha MD Primary Care Provider Josefa RN, Brittny Unavailable ELIZABET BAKER Referring Unavailable VICTOR M ROCHA Primary Care Unavailable Sandrine NÚÑEZ, Pratik Milese Unavailable [employer] POWERHOUSE OILER.ACQUISITION ASSOCIATE, Yovana Unavailable Lacy POWERHOUSE OILER.ACQUISITION ASSOCIATE, Carlos Unavailable Camilla NÚÑEZ, Prema Unavailable Unavailable [employer] POWERHOUSE OILER.ACQUISITION ASSOCIATE, Yovana Unavailable Unavail able [employer] POWERHOUSE OILER.ACQUISITION ASSOCIATE, Yovana Unavailable Aj MORRISON, Dr. Gutierrez Primary Care Provider [phone] Ivett MORRISON, Dr. Casillas Attending Provider Aj MORRISON, Dr. Gutierrez Referring Provider Javy BRISCOE, Amber Mitchell Attending Provider Camilla NÚÑEZ, Prema Unavailable Unavailable Aj MORRISON, Dr. Gutierrez Primary Care Provider [phone] Ivett MORRISON, Dr. Casillas Attending Provider Dr. [...] VICTOR M ROCHA Referring Unavailable VICTOR M ROCAH Primary Care Unavailable CARLOS HOUSE Attending Unavailable [...] Aj MORRISON, Dr. Gutierrez Primary Care Provider Gilda MORRISON, Dr. Joanne Rosas Referring Provider [...] Michael MORRISON, Dr. Lamb Nurse Practitioner [phone] Gunnar Mullen DO Nurse Practitioner Ivett, Vinny Attending Unavailable Elderbrock, Victor M Primary Care Unavailable Ivett, Vinny Attending Unavailable Elderbrock, Victor M Primary Care Unavailable Elderbrock, Victor M Referring Unavailable Ivett, Vinny Attending Unavailable Elderbrock, Victor M Primary Care Unavailable Ivett, Reno Attending Unavailable Elder[place], Victor M Primary Care Unavailable Goerge Christina Attending Unavailable Elderbro[place], Victor M Referring [...] Elderbrock, Victor M Primary Care Unavailable Ivett, Reno Attending Unavailable Elderbro[place], Victor M Primary Care [...] Attending Unavailable Ashli Bonner Attending Unavailable Ivett, Reno Attending Unavailable Elderbrock, Victor M Primary Care Unavailable Allergies Allergy Classification Reported Allergen(s) Allergy Type Date of Onset Reaction(s) Facility POISON FANY EXTRACT (2 sources) POISON FANY EXTRACT Drug Allergy 6 [facility] Work Phone: Sulfonamides (antibiotic) (2 sources) Sulfonamides (Antibiotic) Drug Allergy 6 [facility] (2 sources) aspirin Drug Allergy 05-12-201 7 anemia [facility] Work Phone: (2 sources) Sulfonamides (Antibiotic) drug [facility] 1 [facility]: (20 sources) POISON FANY EXTRACT; Translations: [POISON FANY] Drug Allergy 6 Rash [facility] Work Phone: (20 sources) Sulfonamides (Antibiotic); Translations: [SULFA (SULFONAMIDE ANTIBIOTICS)] Drug Allergy 6 [facility] (11 sources) Sulfonamides (Antibiotic) Allergy to substance 3 [facility] (1 source) Sulfonamides (Antibiotic) Drug allergy (disorder) 5 [facility] (1 source) poison fany extract Drug allergy (disorder) 5 [facility] Medications Current Medications Medication Drug Class(es) [...] STRENGTH 500 MG TABS As needed ACETAMINOPHEN [id number] Dee Mercedes Start: 10-08-2010 End: 02-24-2025 take 2 tablets by mouth every four hours as needed acetaminophen (TYLENOL EXTRA STRENGTH) 500 mg ORAL tablet Take 2 tablets by mouth every 4 hours as needed. 100 tablet 0 10/08/2010 02/24/2025 Discontinued Comment on above: Take 2 tablets by [facility] every 4 hours as [...] One tablet by mouth daily AMITRIPTYLINE HCL [id number] Sanaz Beverly RN Comment on above: Take 1 tablet by [facility] daily at bedtime. Take 2 tablets by [facility] daily at bedtime. amLODIPine [...] daily (in addition to Exforge) AMLODIPINE BESYLATE [id number] Amber Palafox PA-C Start: 10-10-2013 End: 10-10-2013 [...] Comment on above: Take 1 tablet by [facility] once daily. mupirocin 0.02 mg/mg topical ointment (2 sources) RNA Synthetase Inhibitor Antibacterial Start: 4 End: mupirocin (BACTROBAN) 2 % ointment Apply to affected area three times a day for 7 days. 15 g 0 02/16/2024 02/23/2024 Active nitroglycerin 0.4 mg sublingual tablet (20 sources) Nitrate Vasodilator Start: End: Comment on above: Dissolve 1 tablet un anotnio the tongue every 5 minutes as needed for Chest Pain. Nut.Tx.Comp. Immune Systm,Reg (Ensure Surgery) 0.08-1.4 gram-kcal/mL Liquid (2 sources) Start: omeprazole 40 mg delayed release oral capsule (20 sources) Proton Pump Inhibitor Start: End: 4 take 1 capsule by mouth once daily Comment on above: Take 1 capsule by mo [facility] once daily. oxyCODONE hydrochloride 5 mg oral [...] One tablet by mouth daily AMIODARONE HCL [id number] Vinny Root MD Start: 05-08-2015 End: 08-28-2015 take 1 tablet by mouth once daily AMIODARONE HCL 200 MG TABS One tablet by mouth daily AMIODARONE HCL [id number] Amber Palafox, JOSE ANGELC amLODIPine 10 mg / hydroCHLOROthiazide 25 mg / valsartan 320 mg oral tablet (20 sources) Thiazide Diuretic, Dihydropyridine Calcium Channel Rosaura, Angiotensin 2 Receptor Rosaura Start: 08-21-2017 End: 02-26-2018 Gzticpzjyd-Ltcxrvlqi-Ybriete id (Exforge Hct) 10-320-25 mg tablet Discontinued 1 {tbl} PO daily 90 0 August 21, 2017 6:04pm February 26, 2018 11:10am Start: 10-21-2010 take 1 tablet by sarah th once daily EXFORGE HCT 10-320-25 MG TABS One tablet by mouth daily NUVMHHSKBN-KSSKNGNIF-[id number] [id number] Amber Palafox, SHAY Start: 10-21-2010 EXFORGE HCT 10 -320-25 MG TABS 1/2 tablet twice daily EPPAWSBZMK-FQRZMVYOA-GHFM [id number] Edwige Lentz NP Start: 10-21-2010 take 1 tablet by sarah th once daily, then take 5-160 tablets by mouth EXFORGE HCT 5-160-25 MG TABS One tablet by mouth daily [id number]-[id number]-HMOF [id number] Vinny Root MD aspirin 81 mg oral tablet (10 sources) Nonsteroidal Anti-inflammatory Drug Start: 11-17-2014 take 1 tablet by mouth once daily ASPIRIN 81 MG TABS One tablet by mouth daily ASPIRIN [id number] Vinny Root MD Start: 11-17-2014 End: 11-21-2016 take 1 tablet by mouth once daily ASPIRIN EC 81 MG TBEC One tablet by mouth daily ASPIRIN [id number] Sanaz Beverly RN Start: 10-21-2010 End: 11-17-2014 take 1 tablet by mouth once daily ASPIRIN 325 MG TABS One tablet by mouth daily ASPIRIN [id number] Vinny Root MD atenolol 25 mg oral tablet (4 sources) beta-Adrenergic Rosaura Start: 10-21-2010 End: 09-07-2012 take 1 tablet by mouth once daily ATENOLOL 25 MG TABS One tablet by mouth daily ATENOLOL [id number] Vinny Root MD atorvastatin 40 mg oral tablet (8 sources) HMG-CoA Reductase Inhibitor Start: 08-31-2012 End: 08-08-2013 LIPITOR 40 MG TABS One tablet by mouth daily-ON HOLD ATORVASTATIN CALCIUM [id number] Tena Roberts RN ciprofloxacin 500 mg oral [...] One tablet by mouth daily CLOPIDOGREL BISULFATE [id number] Vinny Root MD diazePAM 5 mg oral [...] MG CAPS a s needed DICYCLOMINE HCL [id number] Amber Palafox PA-C diphenhydrAMINE hydrochloride 25 mg [...] 25 MG TABS PRN 2011 DIPHENHYDRAMINE HCL [id number] Amber Palafox PA-C Comment on above: Take 1 capsule by [facility] every 6 hours as [...] One tablet by mouth daily ESCITALOPRAM OXALATE [id number] Amber Palafox PA-C estrogens, conjugated (jail) 0.625 mg oral tablet (4 sources) Estrogen Start: 10-22-19 End: 08-12-19 12 take 1 tablet by mouth once daily PREMARIN 0.625 MG TABS One tablet by mouth daily ESTROGENS CONJUGATED [id number] Vinny Root MD glimepiride 4 mg oral [...] on above: Take 1 tablet by sarah daily with breakfast. HANDICAP PLACARD (2 sources) Start: 2016 HANDICAP PLACARD Lifetime duration HANDICAP PLACARD Vinny Root MD hydroCHLOROthiazide 12.5 mg oral tablet (20 sources) Thiazide Diuretic Start: 2017 End: 2023 take 1 capsule by mouth once daily Hydrochlorothiazide 12.5 mg capsule Indications: 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 , Essential hypertension, benign Take 1 capsule by mouth once daily. 0 03/18/2018 12/24/2023 Discontinued (Discontinued by another Health Care Provider) Start: 02-26-2018 End: 12-17-2023 Hydrochlorothiazide 12.5 mg tablet Discontinued 0 .ROUTE .COMPLEX 90 3 November 25, 2023 9:24am December 14, 2023 11:42am TAKE 1 TABLET DAILY Comment on above: Take 1 capsule by mo [facility] once daily. iron sucrose iv piggyback 200 [...] th once daily TOPROL XL 25 MG [id number] One tablet by mouth daily METOPROLOL SUCCINATE [id number] Amber Palafox PA-C Start: 09-07-2012 take 1 tablet by sarah th twice daily METOPROLOL SUCCINATE ER 25 MG [id number] One tablet by mouth twice daily METOPROLOL SUCCINATE [id number] Sanaz Beverly RN Comment on above: Take [...] by mouth twice daily POLYSACCHARIDE IRON COMPLEX [id number] Vinny Root MD microencapsulated potassium chloride 20 [...] by mouth daily POTASSIUM CHLORIDE JOHANNY CR [id number] Vinny Root MD Start: 10-10-2013 End: 06-16-2017 [...] tablet by mouth daily every night SIMVASTATIN [id number] Vinny oRot MD Start: 10-21-2010 End: 12-22-2024 Simvastatin 20 [...] TABS One tablet by mouth daily VALSARTAN [id number] Keila Dhillon RN Problems Active Problems Problem [...] disease (20 sources) Atherosclerotic heart disease of platinum coronary artery without angina pectoris; Translations: [Coronary arteriosclerosis in platinum artery] Onset: 1 05-15-2016 Chronic Deficiency and [...] 05-15-2016 Episodic Other aftercare (2 sources) 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, [address] FINGERSTICK GLU 118 mg/dL High -106 [facility] Comment on above: Result Comment: CRISTIAN GEMENT OF PATIENT CARE PER NURSING PROTOCOL Performed By: #### L 503.7505, L503.6005, L500.4050, L501.4021, L100.0100 #### [facility] [address] [place], [address] Gl[facility] measurement at [facility] deOrdered By: Gunnar Mullen on 04-06-2025 Glucose [Mass/Vol] 227 mg/dL High 74-106 [facility] Comment on above: MANAGEMENT OF PATIEN T CARE PER NURSING PROTOCOL Absolute lymphocyte countOrd ered By: Gunnar Mullen on 04-05-2025 Lymphocytes Auto (Unsp spec) [#/Vol] 0.81 10*3/uL Low 0.83-4.51 [facility] Absolute neutrophil countOrd ered By: Gunnar Mullen on 04-05-2025 Neutrophils (Bld) [#/Vol] 13.0 10*3/uL High 2.0-7.7 [facility] Anion gap in Serum or Plasma Ordered By: Gunnar Mullen on 04-05-2025 Anion gap [Moles/Vol] 11 mmol/L 5-15 [facility] Automated lymphocyte count a s percentage of total leukocytesOrdered By: Gunnar Mullen on 04-05-2025 Lymphocytes/100 WBC Auto (Unsp spec) 5.5 % Low 19-41 [facility] BUN/creatinine ratioOrdered By: Gunnar Mullen on 04-05-2025 Urea nitrogen/Creatinine [Mass ratio] 16.6 mg/mg - [facility] Basic Metabolic Profile (BMP )on 04-05-2025 BUN/CRE 16.6 RATIO Normal - [facility] Comment on above: Performed By: #### L 500.2500, L100.0100 #### [facility] [address] [place], [address] Calcium [Mass/Vol] 8.8 mg/dL Normal 7.6-11.0 [facility] Comment on above: Performed By: #### L 500.2500, L100.0100 #### [facility] [address] [place], [address] Chloride [Moles/Vol] 100 mmol/L Normal 98-108 [facility] Comment on above: Performed By: #### L 500.2500, L100.0100 #### [facility] [address] [place], [address] CO2 [Moles/Vol] 21.1 mmol/L Normal 21.0-32.0 [facility] Comment on above: Performed By: #### L 500.2500, L100.0100 #### [facility] [address] [place], [address] Creatinine [Mass/Vol] 1.11 mg/dL Normal 0.70-1.20 [facility] Comment on above: Performed By: #### L 500.2500, L100.0100 #### [facility] [address] [place], [address] ECRCL 43.39 ml/min Low 50-250 [facility] Comment on above: Performed By: #### L 500.2500, L100.0100 #### [facility] [address] [place], [address] GAP 11 Normal 5-15 [facility] Comment on above: Performed By: #### L 500.2500, L100.0100 #### [facility] [address] [place], [address] GFR/1.73 sq M.predicted among non-blacks MDRD (S/P/Bld) [Vol rate/Area] 49 mL/min/{1.73_m2} Low >60 [facility] Comment on above: Result Comment: mL/m in/1.73m2 CKD-EPI Creatinine Equation (2020) Performed By: #### L 500.2500, L100.0100 #### [facility] [address] [place], [address] Glucose [Mass/Vol] 182 mg/dL High 70-99 [facility] Comment on above: Performed By: #### L 500.2500, L100.0100 #### [facility] [address] [place], [address] Potassium [Moles/Vol] 4.5 mmol/L Normal 3.3-5.1 [facility] Comment on above: Performed By: #### L 500.2500, L100.0100 #### [facility] [address] [place], [address] Sodium [Moles/Vol] 132 mmol/L Low 133-145 [facility] Comment on above: Performed By: #### L 500.2500, L100.0100 #### [facility] [address] [place], [address] Urea nitrogen [Mass/Vol] 18 mg/dL Normal 4-19 [facility] Comment on above: Performed By: #### L 500.2500, L100.0100 #### [facility] [address] [place], [address] Basophil percentageOrdered B y: Gunnar Mullen on 04-05-2025 Basophils/100 WBC (Bld) 0.1 % 0-1 [facility] Bedside Glucoseon 04-05-2025 FINGERSTICK GLU 165 mg/dL High 74-106 [facility] Comment on above: Result Comment: CRISTIAN GEMENT OF PATIENT CARE PER NURSING PROTOCOL Performed By: #### L 500.2500, L100.0100 #### [facility] [address] [place], [address] FINGERSTICK GLU 181 mg/dL High -106 [facility] Comment on above: Result Comment: CRISTIAN GEMENT OF PATIENT CARE PER NURSING PROTOCOL Performed By: #### L 503.7505, L503.6005, L500.4050, L501.4021, L100.0100 #### [facility] [address] [place], [address] FINGERSTICK GLU 256 mg/dL High [address] [place] [address] Comment on above: Result Comment: CRISTIAN GEMENT OF PATIENT CARE PER NURSING PROTOCOL Performed By: #### L 500.2500, L100.0100 #### [facility] [address] [place], [address] FINGERSTICK GLU 157 mg/dL High [address] [place] [address] Comment on above: Result Comment: CRISTIAN GEMENT OF PATIENT CARE PER NURSING PROTOCOL Performed By: #### L 501.080 #### [facility] [address] [place], [address] CBC W/Diff, Automatedon 03-14 Anisocytosis Ql (Bld) RARE Normal [facility] Comment on above: Performed By: #### L 500.2500, L100.0100 #### [facility] [address] [place], [address] Carbon dioxide, total [Moles /volume] in Central venous bloodOrdered By: Gunnar Mullen on 04-05-2025 CO2 [Moles/Vol] 21.1 mmol/L 21.0-32.0 [facility] Chloride assayOrdered By: Louis Mullen on 04-05-2025 Chloride [Moles/Vol] 100 mmol/L 98-108 [facility] Eosinophil percentageOrdered By: Gunnra Mullen on 04-05-2025 Eosinophils/100 WBC (Bld) 0.0 % 0-5 [facility] Erythrocyte distribution wid th ratioOrdered By: Gunnar Mullen on 04-05-2025 Erythrocyte distribution width (RBC) [Ratio] 20.4 % High 11.6-14.6 [facility] Erythrocyte distribution wid th standard deviationOrdered By: Gunnar Mullen on 04-05-2025 Erythrocyte distribution width (RBC) [Ratio] 67.8 fl High 35.1-43.9 [facility] Glomerular filtration rate ( GFR) estimation/1.73 sq m using serum, plasma, or whole bOrdered By: Gunnar Mullen on 04-05-2025 GFR/1.73 sq M.predicted among non-blacks MDRD (S/P/Bld) [Vol rate/Area] 49 mL/min/{1.73_m2} Low >60 [facility] Comment on above: mL/min/1.73m2 CKD-EP I Creatinine Equation (2020) Hematocrit Auto (Bld) [Volum e fraction]Ordered By: Gunnar Mullen on 04-05-2025 Hematocrit (Bld) [Volume fraction] 31.5 % Low 37-47 [facility] Hemoglobin measurementOrdere d By: Gunnar Mullen on 04-05-2025 Hemoglobin (Bld) [Mass/Vol] 10.2 g/dL Low 12.0-15.0 [facility] Immature granulocytes/100 WB C Auto (Bld)Ordered By: Gunnar Mullen on 04-05-2025 Immature granulocytes/100 WBC (Bld) 0.400 % 0.0-0.9 [facility] Comment on above: IG% - Immature Granu locytes (promyelocytes, myelocytes and metamyelocytes) > 1% indicates that a LEFT SHIFT is Present. Laboratory - Hematology and Cell countsOrdered By: Gunnar Mullen on 04-05-2025 Anisocytosis Ql (Bld) RARE [facility] MCV (mean corpuscular volume ) determinationOrdered By: Gunnar Mullen on 04-05-2025 MCV (RBC) [Entitic vol] 92.4 fL 81-99 [facility] Mean corpuscular hemoglobin (MCH) determinationOrdered By: Gunnar Mullen on 04-05-2025 MCH (RBC) [Entitic mass] 29.9 pg 27.0-32.0 [facility] Mean corpuscular hemoglobin concentration (MCHC) determinationOrdered By: Gunnar Mullen on 04-05-2025 MCHC (RBC) [Mass/Vol] 32.4 g/dL 32-36 [facility] Mean platelet volume determi nationOrdered By: Gunnar Mullen on 04-05-2025 Platelet mean volume (Bld) [Entitic vol] 10.3 fL 6.2-12.0 [facility] Monocyte percentageOrdered B y: Gunnar Mullen on 04-05-2025 Monocytes/100 WBC (Bld) 5.6 % 0-10 [facility] Neutrophil percentageOrdered By: Gunnar Mullen on 04-05-2025 Neutrophils/100 WBC (Bld) 88.4 % High 47-70 [facility] Nucleated red blood cell per centageOrdered By: Gunnar Mullen on 04-05-2025 Nucleated RBC/100 WBC (Bld) [Ratio] 0 % 0-5 [facility] Platelet countOrdered By: Louis Mullen on 04-05-2025 Platelets (Bld) [#/Vol] 201 10*3/uL 150-450 [facility] Potassium measurement (mass/ volume)Ordered By: Gunnar Mullen on 04-05-2025 Potassium (Unsp spec) [Mass/Vol] 4.5 mmol/L 3.3-5.1 [facility] RBC Auto (Bld) [#/Vol]Ordere d By: Gunnar Mullen on 04-05-2025 RBC (Bld) [#/Vol] 3.41 10*6/uL Low 4.2-5.4 [facility] Serum creatinine measurement (mass/volume)Ordered By: Gunnar Mullen on 04-05-2025 Creatinine [Mass/Vol] 1.11 mg/dL 0.70-1.20 [facility] Serum glucose measurement (m ass/volume)Ordered By: Gunnar Mullen on 04-05-2025 Glucose [Mass/Vol] 182 mg/dL High 70-99 [facility] Serum or plasma calcium fernando urement (mass/volume)Ordered By: Gunnar Mullen on 04-05-2025 Calcium [Mass/Vol] 8.8 mg/dL 7.6-11.0 [facility] Serum or plasma urea nitroge n measurement (mass/volume)Ordered By: Gunnar Mullen on 04-05-2025 Urea nitrogen [Mass/Vol] 18 mg/dL 4-19 [facility] Sodium levelOrdered By: Gunnar Mullen on 04-05-2025 Sodium [Moles/Vol] 132 mmol/L Low 133-145 [facility] White blood cell (WBC) count Ordered By: Gunnar Mullen on 04-05-2025 WBC (Bld) [#/Vol] 14.7 10*3/uL High 4.4-11.0 [facility] Basic Metabolic Profile (BMP )on 04-04-2025 BUN/CRE 13.5 RATIO Normal 10-20 [facility] Comment on above: Performed By: #### L 500.2500, L100.0100 #### [facility] [address] [place], [address] Calcium [Mass/Vol] 8.9 mg/dL Normal 7.6-11.0 [facility] Comment on above: Performed By: #### L 500.2500, L100.0100 #### [facility] [address] [place], [address] Chloride [Moles/Vol] 103 mmol/L Normal 98-108 [facility] Comment on above: Performed By: #### L 500.2500, L100.0100 #### [facility] [address] [place], [address] CO2 [Moles/Vol] 20.0 mmol/L Low 21.0-32.0 [facility] Comment on above: Performed By: #### L 500.2500, L100.0100 #### [facility] [address] [place], [address] Creatinine [Mass/Vol] 1.34 mg/dL High 0.70-1.20 [facility] Comment on above: Performed By: #### L 500.2500, L100.0100 #### [facility] [address] [place], [address] ECRCL 35.43 ml/min Low 50-250 [facility] Comment on above: Performed By: #### L 500.2500, L100.0100 #### [facility] [address] [place], [address] GAP 13 Normal 5-15 [facility] Comment on above: Performed By: #### L 500.2500, L100.0100 #### [facility] [address] [place], [address] GFR/1.73 sq M.predicted among non-blacks MDRD (S/P/Bld) [Vol rate/Area] 39 mL/min/{1.73_m2} Low >60 [facility] Comment on above: Result Comment: mL/m in/1.73m2 CKD-EPI Creatinine Equation (2020) Performed By: #### L 500.2500, L100.0100 #### [facility] [address] [place], [address] Glucose [Mass/Vol] 118 mg/dL High 70-99 [facility] Comment on above: Performed By: #### L 500.2500, L100.0100 #### [facility] [address] [place], [address] Potassium [Moles/Vol] 4.5 mmol/L Normal 3.3-5.1 [facility] Comment on above: Performed By: #### L 500.2500, L100.0100 #### [facility] [address] [place], [address] Sodium [Moles/Vol] 136 mmol/L Normal 133-145 [facility] Comment on above: Performed By: #### L 500.2500, L100.0100 #### [facility] [address] [place], [address] Urea nitrogen [Mass/Vol] 18 mg/dL Normal 4-19 [facility] Comment on above: Performed By: #### L 500.2500, L100.0100 #### [facility] [address] [place], [address] Bedside Glucoseon 04-04-2025 FINGERSTICK GLU 213 mg/dL High 74-106 [facility] Comment on above: Result Comment: CRISTIAN GEMENT OF PATIENT CARE PER NURSING PROTOCOL Performed By: #### L 503.7505, L503.6005, L500.4050, L501.4021, L100.0100 #### [facility] [address] [place], [address] FINGERSTICK GLU 171 mg/dL High 74-106 [facility] Comment on above: Result Comment: CRISTIAN GEMENT OF PATIENT CARE PER NURSING PROTOCOL Performed By: #### L 501.080 #### [facility] [address] [place], [address] FINGERSTICK GLU 137 mg/dL High 74-106 [facility] Comment on above: Result Comment: CRISTIAN GEMENT OF PATIENT CARE PER NURSING PROTOCOL Performed By: #### L 500.2500, L100.0100 #### [facility] [address] [place], [address] FINGERSTICK GLU 123 mg/dL High 74-106 [facility] Comment on above: Result Comment: CRISTIAN GEMENT OF PATIENT CARE PER NURSING PROTOCOL Performed By: #### L 500.2500, L100.0100 #### [facility] [address] [place], [address] CBC W/Diff, Automatedon - Anisocytosis Ql (Bld) RARE Normal [facility] Comment on above: Performed By: #### L 500.2500, L100.0100 #### [facility] [address] [place], [address] Consultation - Orthopedicson 04-04-2025 Consultation - Orthopedics [facility] Medical Records Department [address] [place] [address] Consultation - Orthopedics 04/04/25 1444 MR#: [id number] Acct: [id number] Name: GUDELIA GUPTA Rep #: [id number] : 1940 84 From: Adonis Rodriguez MD PCP: Dr. Victor M Rocha MD Status:ADM IN Location: [facility] [place] UQ751-8 HPI Consult Data Date of Consult: 04/04/25 [...] denies dizziness head injury loss of consciousness. [facility] Medical History Overweight (BMI 25.0-29.9) Coronary artery disease Iron deficiency anemia History of non-ST elevation myocardial infarction (NSTEMI) (2013) Longstanding persistent atrial fibrillation Essential (primary) hypertension Anxiety Hypothyroidism Hyperlipidemia Secondary pulmonary arterial hypertension Atherosclerosis of coronary artery of platinum heart without angina pectoris Paroxysmal atrial fibrillation [...] Location Pu (more content not included)... Normal [facility] Electrocardiogram reportOrde red By: Vinny Root on 04-04-2025 EKG study [facility] Cardiovascular Services [address] [place] [address] 12 Lead EKG 04/03/25 1433 MR#: [id number] Acct: [id number] Name: GUDELIA GUPTA Rep #:[id number] : 1940 84 From: Vinny Root MD [...] ECG Confirmed by IVETT MORRISON, VINNY ([id number]), editor trade journal MOISES LEW ([id number]) on 57:29:35 AM Referred By: Confirmed By: VINNY ROOT MD 04/04/25 0729 Date _ Vinny Root MD CC: Dr. Gunnar Mullen DO; Dr. Victor M Rocha MD; Dr. Corwin Shearer DO ~ Signed [facility] Work Phone: Hip Min 2 Views (Portable)on 04-04-2025 Hip Min 2 Views (Portable) [facility] Imaging Services [address] [place] [address] Hip Min 2 Views (Portable) MR#: [id number] Acct: [id number] Name: GUDELIA GUPTA Rep #: [id number] : 1940 F 84 From: Inga Sandoval MD PCP: Dr. Victor M Rocha MD Status: ADM IN Study: Hip Min 2 Views (Portable) Date of Exam: 04/04 Exam# [id number] Ordering Dr: Adonis Rodriguez MD PROCEDURE: HIP [...] replacement. Normal alignment without loosening. Reading Location: [facility] CC: Dr. Victor M Rocha MD; Dr. Adonis Rodriguez MD Criminal Attorney: Signed Normal [facility] MR/POSTOP.CHRISTINEon 04-04-2025 MR/POSTOP.ANE [facility] Medical Records Department [address] [place] [address] Anesthesia Postop Eval I 04/04/25 1520 MR#: [id number] Acct: [id number] Name: GUDELIA GUPTA Rep #: [id number] : 1940 84 From: Dwight Berg CRNA PCP: Dr. Victor M Rocha MD Status:ADM IN Y Race: C Location: [facility] [place] NY323-2 Anesthesia: Postop Eval I Current Vital Signs Temperature: 99.3 F Pulse Rate: 80 Blood Pressure: 111/58 Respiratory Rate: 16 Pulse Ox: 92 Assessment Airway patent: Yes Spontaneous unlabored respirations: Yes nausea: No Vomiting: No Anesthesia Complication: No Fluid Hydration Crystalloid volume administer (ml): 1,300 Total IV fluid infused: 1,300 Progress Note Anesthesia document: Postop Eval 1 completed: Yes 04/04/25 1520 Date Dwight Berg BUS PERSON Cosigner Signature: Date CC: Signed Normal [facility] MR/[id number] 04-04-2025 [facility] Medical Records Department [address] [place] [address] Anesthesia Postop Eval II 04/04/25 1753 MR#: [id number] Acct: [id number] Name: GUDELIA GUPTA Rep #: [id number] : 1940 84 From: Niranjan Turner MD PCP: Dr. Victor M Rocha MD Status:ADM IN Y Race: C Location: [facility] [place] Anesthesia Postop Eval I Sum Postop Eval Completion status Anesthesia document: Postop Eval 1 completed: Yes Anesthesia Postop Eval I Summary Anesthesia Postop Eval I Summary: Anesthesia Postop Eval I: Assessment Summary Airway patent Yes 04/04/25 15:20 BUS PERSON.TNES Spontaneous unlabored Yes 04/04/25 15:20 BUS PERSON.TNES respirations Mental status nausea No 04/04/25 15:20 BUS PERSON.TNES Vomiting No 04/04/25 15:20 BUS PERSON.TNES Anesthesia Postop Eval I: Fluid Summary Crystalloid volume administer 1,300 04/04/25 15:20 BUS PERSON.TNES (ml) Colloids volume administered ( ml) Blood Product volume administered (ml) Total IV fluid infused 1,300 04/04/25 15:20 BUS PERSON.TNES Anesthesia Postop Eval I: Summary Notes Anesthesia Complication No 04/04/25 15:20 BUS PERSON.TNES Anesthesia Complication Comment: Post-operative progress note Anesthesia: Postop Eval II Evaluation Mental status: Awake and Calm Pain Level: 2 nausea: No Vomiting: No Complications Anesthesia Complication: No 04/04/25 175 Date Niranjan Turner MD Cosigner Signature: Date CC: Signed Normal [facility] Operative Reporton Operative Report [facility] Medical Records Department [address] [place] [address] Operative Report 04/04/25 1437 MR#: [id number] Acct: [id number] Name: GUDELIA GUPTA Rep #: [id number] : 1940 84 From: Adonis Rodriguez MD PCP: Dr. 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: Yes [employer] Caser: Destiny Hilario Tasks completed by medical research assistant: Closing and Implanting device Additional insurance sales assistant?: No Type of Anesthesia: General RN Documented Start/Stop Times: Operation Date: 04/04/25 12:30 Case Time Into Pre-Op 04/04/25 11:38 Out of Pre-Op 04/04/25 12:54 Into Room 04/04/25 12:55 Anesthesia Start 04/04/25 12:56 Procedure Start 04/04/25 13:30 Procedure Start Time: 13:30 Procedure Stop Time: 14:39 Select all DRAINS/GRAFTS/IMPLAN TS that apply: Prosthetic device Prosthetic device details: [place] cemented bipolar hemiarthroplasty Estimated Blood Loss: 300 Specimen collected: No Description of surgery: Indications for surgery : Patient is a (84) -year-old that fell yesterday fracturing the involved hip. Appropriate informed consent was obtained and signed. Appropriate medical workup was performed preoperatively and patient was deemed safe for surgery by the anesthesia department assistant field hockey coach, LUIS FELIPE was utilized throughout the entire procedure. They were vital in helping with patient positioning, holding of retractors, exposing the tissues adequately for safe completion of the procedure including cutting of the bone, helping bulk truck driver appropriate alignment and sizing of the components, implantation of the components, as well as wound closure, bandage application, and safe patient transfer. Without surgical territory manager, physician insurance sales assistant, surgical time would have been significantly increased, and surgical outcome would have been less optimal. Operative findings: Patient had displaced comminuted femoral neck fracture. We used a [place] Accolade C stem size #5 cemented. Bipolar [...] surgeon. Leg was appropriately rotated by the insurance sales assistant. Retractor was used to lift the abductors [...] At this (more content not included)... Normal [facility] Type AND Screenon 04-04-2025 ABO and Rh group Nom (Bld) Blood group O Rh(D) positive Normal [facility] Comment on above: Order Comment: [id number] HIP Performed By: #### L 501.080 #### [facility] [address] [place], [address] 12 Lead EKGon 04-03-2025 12 Lead EKG [facility] Cardiovascular Services [address] [place] [address] 12 Lead EKG 04/03/25 1433 MR#: [id number] Acct: [id number] Name: CANDYGUDELIA E Rep #: [id number] : 1940 84 From: Vinny Root MD [...] ECG Confirmed by IVETT MORRISON, VINNY ([id number]), editor trade journal MOISES LEW ([id number]) on 04/04/2025 7:29:35 AM Referred By: Confirmed By: VINNY ROOT MD 04/04/25728 Date Vinny Root MD CC: Dr. Gunnar Mullen DO; Dr. Victor M Rocha MD; Dr. Corwin Shearer DO Signed Normal [facility] Activated partial thrombopla stin time (aPTT) in platelet poor plasma by coagulation aOrdered By: Corwin Shearer on 04-03-2025 aPTT Coag (PPP) [Time] 40.9 s High 24.1-36.2 [facility] Basic Metabolic Profile (BMP )on 04-03-2025 BUN/CRE 13.5 RATIO Normal 10-20 [facility] Comment on above: Performed By: #### L 500.2500, L100.0100 #### [facility] [address] [place], [address] Calcium [Mass/Vol] 9.2 mg/dL Normal 7.6-11.0 [facility] Comment on above: Performed By: #### L 500.2500, L100.0100 #### [facility] [address] [place], [address] Chloride [Moles/Vol] 101 mmol/L Normal 98-108 [facility] Comment on above: Performed By: #### L 500.2500, L100.0100 #### [facility] [address] [place], [address] CO2 [Moles/Vol] 22.0 mmol/L Normal 21.0-32.0 [facility] Comment on above: Performed By: #### L 500.2500, L100.0100 #### [facility] [address] [place], [address] Creatinine [Mass/Vol] 1.34 mg/dL High 0.70-1.20 [facility] Comment on above: Performed By: #### L 500.2500, L100.0100 #### [facility] [address] [place], [address] ECRCL 36.41 ml/min Low 50-250 [facility] Comment on above: Performed By: #### L 500.2500, L100.0100 #### [facility] [address] [place], [address] GAP 12 Normal 5-15 [facility] Comment on above: Performed By: #### L 500.2500, L100.0100 #### [facility] [address] [place], [address] GFR/1.73 sq M.predicted among non-blacks MDRD (S/P/Bld) [Vol rate/Area] 39 mL/min/{1.73_m2} Low >60 [facility] Comment on above: Result Comment: mL/m in/1.73m2 CKD-EPI Creatinine Equation (2020) Performed By: #### L 500.2500, L100.0100 #### [facility] [address] [place], [address] Glucose [Mass/Vol] 181 mg/dL High 70-99 [facility] Comment on above: Performed By: #### L 500.2500, L100.0100 #### [facility] [address] [place], [address] Potassium [Moles/Vol] 4.4 mmol/L Normal 3.3-5.1 [facility] Comment on above: Performed By: #### L 500.2500, L100.0100 #### [facility] [address] [place], [address] Sodium [Moles/Vol] 135 mmol/L Normal 133-145 [facility] Comment on above: Performed By: #### L 500.2500, L100.0100 #### [facility] [address] [place], [address] Urea nitrogen [Mass/Vol] 18 mg/dL Normal 4-19 [facility] Comment on above: Performed By: #### L 500.2500, L100.0100 #### [facility] [address] [place], [address] Bedside Glucoseon 04-03-2025 FINGERSTICK GLU 174 mg/dL High 74-106 [facility] Comment on above: Result Comment: CRISTIAN PACHECO OF PATIENT CARE PER NURSING PROTOCOL Performed By: #### L 500.2500, L100.0100 #### [facility] [address] [place], [address] Brain/Head without Contrasto n 04-03-2025 Brain/Head without Contrast [facility] Imaging Services [address] [place] [address] Brain/Head without Contrast MR#: [id number] Acct: [id number] Name: GUDELIA GUPTA Rep #: [id number] : 1940 F 84 From: Bello snyder MD PCP: Dr. Victor M Rocha MD Status: REG ER Study: Brain/Head without Contrast Date of Exam: 03/14 09/06 Exam# [id number] Ordering Dr: Corwin Shearer DO PROCEDURE: BRAIN/HEAD [...] CHRONIC CHANGES. NO ACUTE FINDINGS. Reading Location: [place] [address] CC: Dr. Victor M Rocha MD; Dr. Corwin Shearer DO Criminal Attorney: Signed Normal [facility] CBC W/Diff, Automatedon 03-14 Anisocytosis Ql (Bld) 1+ Normal [facility] Comment on above: Performed By: #### L 500.2500, L100.0100 #### [facility] [address] [place], [place], [address] Chest 1 View (Portable)on Chest 1 View (Portable) [facility] Imaging Services [address] [place], [place] [address] Chest 1 View (Portable) MR#: [id number] Acct: [id number] Name: GUDELIA GUPTA Rep #: [id number] : 1940 F 84 From: Deandre Garcia PCP: Dr. Victor M Rocha MD Status: REG ER Study: Chest 1 View (Portable) Date of Exam: 04/03/25 Exam# [id number] Ordering Dr: Corwin Shearer DO PROCEDURE: CHEST [...] acute osseous change is seen. Reading [id number] CC: Dr. Victor M Rocha MD; Dr. Corwin Shearer DO Criminal Attorney: Signed Normal [facility] Emergency Department Summary on 04-03-2025 Emergency Department Summary [facility] Medical Records Department [address] [place] [address] Emergency Department Summary 04/03/25 MR#: [id number] Acct: [id number] Name: GUDELIA GUPTA Rep #: [id number] : 1940 84 From: Corwin Shearer DO [...] does not have any pain anywhere else. [facility] Medical History Overweight (BMI 25.0-29.9) Coronary artery disease Iron deficiency anemia History of non-ST elevation myocardial infarction (NSTEMI) (2013) Longstanding persistent atrial fibrillation Essential (primary) hypertension Anxiety Hypothyroidism Hyperlipidemia Secondary pulmonary arterial hypertension Atherosclerosis of coronary artery of platinum heart without angina pectoris Paroxysmal atrial fibrillation [...] vomit d (more content not included)... Normal [facility] Femur Min 2 Viewson 04-03-20 25 Femur Min 2 Views [facility] Imaging Services [address] [place], [place] [address] Femur Min 2 Views MR#: [id number] Acct: [id number] Name: GUDELIA GUPTA Rep #: [id number] : 1940 F 84 From: Bello snyder MD PCP: Dr. Victor M Rocha MD Status: REG ER Study: Femur Min 2 Views Date of Exam: 04/03/25 Exam# [id number] Ordering Dr: Corwin Shearer DO PROCEDURE: FEMUR [...] left femur. Soft tissue swelling. Reading Location: [place] [address] CC: Dr. Victor M Rocha MD; Dr. Corwin Shearer DO Criminal Attorney: Signed Normal [facility] H AND P Exam - Hospitaliston 04-03-2025 H&P Exam - Hospitalist [facility] Medical Records Department [address] [place] [address] H P Exam - Hospitalist 04/03/25 1713 MR#: [id number] Acct: [id number] Name: GUDELIA GUPTA Rep #: [id number] : 1940 84 From: Ashli Bonner MD PCP: Dr. Victor M Rocha MD Status:ADM IN Location: [facility] [place] OE835-0 HPI - General General Date of Admission: 04/03/25 Date of Service: 04/03/25 Chief Complaint: Left hip pain after fall HPI Narrative GUDELIA GUPTA, is a 84-year-old female history of A-fib/flutter, sick sinus syndrome with pacemaker placement, anxiety, hypertension, GERD, diabetes who presented [facility] ED 04/03/2025 for left hip pain. She [...] any bowel or bladder concerns or changes [facility] Medical History Overweight (BMI 25.0-29.9) Coronary artery disease Iron deficiency anemia History of non-ST elevation myocardial infarction (NSTEMI) (2013) Longstanding persistent atrial fibrillation Essential (primary) hypertension Anxiety Hypothyroidism Hyperlipidemia Secondary pulmonary arterial hypertension Atherosclerosis of coronary artery of platinum heart without angina pectoris Paroxysmal atrial fibrillation [...] ligation Histor (more content not included)... Normal [facility] normalized rat io (INR) calculationOrdered By: Corwin Shearer on 04-03-2025 INR Coag (Bld) [Relative time] 2.1 {INR} [facility] Natriuretic peptide.B prohor chris N-Terminal [Mass/volume] in Serum or PlasmaOrdered By: Corwin Shearer on 04-03-2025 Natriuretic peptide.B prohormone N-Terminal [Mass/Vol] 1850 pg/mL High <1800 [facility] Comment on above: Heart Failure Unlike ly: < 300 pg/mLHeart Failure Likely< 50 Years: > 450 pg/mL50-75 Years: > 900 pg/mL>75 Years: > 1800 pg/mL Partial Thromboplast Timeon 04-03-2025 aPTT Coag (Bld) [Time] 40.9 s High 24.1-36.2 [facility] Comment on above: Performed By: #### L 500.2500, L100.0100 #### [facility] [address] [place], [place], [address] Pelvis 1 or 2 Viewson 2024 Pelvis 1 or 2 Views [facility] Imaging Services [address] [place], [place] [address] Pelvis 1 or 2 Views MR#: [id number] Acct: [id number] Name: GUDELIA GUPTA Rep #: [id number] : 1940 F 84 From: Deandre Garcia PCP: Dr. Victor M Rocha MD Status: REG ER Study: Pelvis 1 or 2 Views Date of Exam: 04/03/25 Exam# [id number] Ordering Dr: Corwin Shearer DO PROCEDURE: PELVIS [...] be performed, at this time. Reading Location: [place] [id number] CC: Dr. Victor M Rocha MD; Dr. Corwin Shearer DO Criminal Attorney: Signed Normal [facility] Pro- Brain NATRIURETIC PEPTI Kiesha 04-03-2025 Natriuretic peptide B (Bld) [Mass/Vol] 1850 pg/mL High <=1800 [facility] Comment on above: Result Comment: Hear t Failure Unlikely: < 300 pg/mL Heart Failure Likely < 50 Years: > 450 pg/mL 50-75 Years: > 900 pg/mL >75 Years: > 1800 pg/mL Performed By: #### L 500.2500, L100.0100 #### [facility] [address] [place], [address] Prothrombin Time w/INRon INR Coag (PPP) [Relative time] 2.1 {INR} Normal [facility] Comment on above: Performed By: #### L 500.2500, L100.0100 #### [facility] [address] [place], [address] PT Coag (PPP) [Time] 24.1 s High 11.7-14.9 [facility] Comment on above: Performed By: #### L 500.2500, L100.0100 #### [facility] [address] [place], [address] Prothrombin timeOrdered By: Corwin Shearer on 04-03-2025 PT Coag (PPP) [Time] 24.1 s High 11.7-14.9 [facility] Spine Cervical without Contr ason 04-03-2025 Spine Cervical without Contras [facility] Imaging Services [address] [place] [address] Spine Cervical without Contras MR#: [id number] Acct: [id number] Name: GUDELIA GUPTA Rep #: [id number] : 1940 F 84 From: Bello snyder MD PCP: Dr. Victor M Rocha MD Status: REG ER Study: Spine Cervical without Contras Date of Exam: 0 04/03/25 Exam# [id number] Ordering Dr: Corwin Shearer DO PROCEDURE: SPINE [...] CANAL OR NEURAL FORAMINAL STENOSIS. Reading Location: [facility] CC: Dr. Victor M Rocha MD; Dr. Corwin Shearer DO Criminal Attorney: Signed Normal [facility] CNOVon 03-07-2025 CNOV Office Visit (FAMPWS) GUDELIA GUPTA ([id number]) 1940 F Date Time Provider Department 03/07/25 [...] here today for follow up. Recording using [email or web address] software for draft documentation of the visit was discussed with the patient/authorized packaging sales representative; all questions welcomed and answered. Patient/authorized packaging sales representative agreed to proceed Gudelia Gupta [...] fatigue. She denies current involvement with her pick up attendant. Past medical history, appointments, medications, allergies reviewed. Previous Medical History PAST MEDICAL HISTORY Diagnosis Date Coronary atherosclerosis of unspecified type of vessel, platinum or graft Stent x 2010 Depressive disorder, [...] 20 mE (more content not included)... Normal [facility] CNOVon 02-24-2025 CNOV Office Visit (GSTNOR) GUDELIA GUPTA ([id number]) 1940 F Date Time Provider Department 02/24/25 [...] for internal providers or letter via the [employer] for external providers. HPI: Gudelia [...] Abs Lymph 1.00 - 4.00 k/uL 1.47 [place]% % 12.7 Abs [place] <0.87 k/uL 0.75 [place]% % 3.4 Abs [...] Coronary atherosclerosis of unspecified type of vessel, platinum or graft Stent x 2010 Depressive disorder, [...] tablet T (more content not included)... Normal [facility] Cardiology Visit Reporton Cardiology Visit Report [facility] Heart [facility] [address] [place] [address] OFFICE VISIT Date of Service: 02/21/25 MR#: [id number] Acct: [id number] Name: GUDELIA GUPTA Rep #: [id number] : 1940 Provider: MODESTA berrios Age/Sex: 84/F Location[facility] Status: Signed HPI HPI History of [...] Oximetry (%) 93 Intake Visit Reasons: S/P [facility] 02/11 Surgical Garment Assembly Supervisor Required: No Is patient in pain?: No [...] the past year?: No PFSH Medical History Overweight (BMI 25.0-29.9) Coronary artery disease Iron deficiency anemia History of non-ST elevation myocardial infarction (NSTEMI) (2013) Longstanding persistent atrial fibrillation Essential (primary) hypertension Anxiety Hypothyroidism Hyperlipidemia Secondary pulmonary arterial hypertension Atherosclerosis of coronary artery of platinum heart without angina pectoris Paroxysmal atrial fibrillation Paroxysmal atrial flutter Sick sinus syndrome Surgical History S/P kyphoplasty History of tubal ligation History of appendectomy History of hysterectomy History of left heart catheterization (10/09/13) History of coronary artery stent placement (09/2010) Hx of atrioventricular node ablation (03/31/16) Presence of cardiac pacemaker (04/26/15) Family Hi (more content not included)... Normal [facility] Hemoccult Stl Ql IAon 2024 Lower GI hemoglobin IA Ql (Stl) Positive Abnormal Negative [facility] Comment on above: Order Comment: Speci men Type: STOOL SPECIMENOrdering Facility: [facility] Address: [address] [place] [address] Performed By: #### 2 9771-3 ####[facility] LABCLIA [id number] [address] STATES OF [facility] Basic Metabolic Profile (BMP )on 02-18-2025 BUN Normal - [facility] Comment on above: Result Comment: Canc elled via OM: Order cancelled - Patient discharged Performed By: #### L 503.7505, L503.6005, L500.4050, L501.4021, L100.0100 #### [facility] [address] [facility] [place], [address] BUN/CRE Normal - [facility] Comment on above: Result Comment: Canc elled via OM: Order cancelled - Patient discharged Performed By: #### L 503.7505, L503.6005, L500.4050, L501.4021, L100.0100 #### [facility] [address] [place], [address] Calcium Normal 7.6-11.0 [facility] Comment on above: Result Comment: Canc elled via OM: Order cancelled - Patient discharged Performed By: #### L 503.7505, L503.6005, L500.4050, L501.4021, L100.0100 #### [facility] [address] [place], [address] CL Normal 98-108 [facility] Comment on above: Result Comment: Canc elled via OM: Order cancelled - Patient discharged Performed By: #### L 503.7505, L503.6005, L500.4050, L501.4021, L100.0100 #### [facility] [address] [place], [address] CO2 Normal 21.0-32.0 [facility] Comment on above: Result Comment: Canc elled via OM: Order cancelled - Patient discharged Performed By: #### L 503.7505, L503.6005, L500.4050, L501.4021, L100.0100 #### [facility] [address] [place], [address] CREAT,SERUM Normal 0.70-1.20 [facility] Comment on above: Result Comment: Canc elled via OM: Order cancelled - Patient discharged Performed By: #### L 503.7505, L503.6005, L500.4050, L501.4021, L100.0100 #### [facility] [address] [place], [address] eGFR Normal >60 [facility] Comment on above: Result Comment: Canc elled via OM: Order cancelled - Patient discharged Performed By: #### L 503.7505, L503.6005, L500.4050, L501.4021, L100.0100 #### [facility] [address] [place], [address] GAP Normal 5-15 [facility] Comment on above: Result Comment: Canc elled via OM: Order cancelled - Patient discharged Performed By: #### L 503.7505, L503.6005, L500.4050, L501.4021, L100.0100 #### [facility] [address] [place], [address] GLU Normal 70-99 [facility] Comment on above: Result Comment: Canc elled via OM: Order cancelled - Patient discharged Performed By: #### L 503.7505, L503.6005, L500.4050, L501.4021, L100.0100 #### [facility] [address] [place], [address] Potassium Normal 3.3-5.1 [facility] Comment on above: Result Comment: Canc elled via OM: Order cancelled - Patient discharged Performed By: #### L 503.7505, L503.6005, L500.4050, L501.4021, L100.0100 #### [facility] [address] [place], [address] Basic Metabolic Profile (BMP) Normal 133-145 [facility] Comment on above: Result Comment: Canc elled via OM: Order cancelled - Patient discharged Performed By: #### L 503.7505, L503.6005, L500.4050, L501.4021, L100.0100 #### [facility] [address] [place], [address] CBC W/Diff, Automatedon 08-0 -2024 Absolute Neut Normal 2.0-7.7 [facility] Comment on above: Result Comment: Canc elled via OM: Order cancelled - Patient discharged Performed By: #### L 503.7505, L503.6005, L500.4050, L501.4021, L100.0100 #### [facility] [address] [place], [address] HCT Normal 37-47 [facility] Comment on above: Result Comment: Canc elled via OM: Order cancelled - Patient discharged Performed By: #### L 503.7505, L503.6005, L500.4050, L501.4021, L100.0100 #### [facility] [address] [place], [address] HGB Normal 12.0-15.0 [facility] Comment on above: Result Comment: Canc elled via OM: Order cancelled - Patient discharged Performed By: #### L 503.7505, L503.6005, L500.4050, L501.4021, L100.0100 #### [facility] [address] [place], [address] MCH Normal 27.0-32.0 [facility] Comment on above: Result Comment: Canc elled via OM: Order cancelled - Patient discharged Performed By: #### L 503.7505, L503.6005, L500.4050, L501.4021, L100.0100 #### [facility] [address] [place], [address] MCHC Normal 32-36 [facility] Comment on above: Result Comment: Canc elled via OM: Order cancelled - Patient discharged Performed By: #### L 503.7505, L503.6005, L500.4050, L501.4021, L100.0100 #### [facility] [address] [place], [address] MCV Normal 81-99 [facility] Comment on above: Result Comment: Canc elled via OM: Order cancelled - Patient discharged Performed By: #### L 503.7505, L503.6005, L500.4050, L501.4021, L100.0100 #### [facility] [address] [place], [address] NEUT% Normal 47-70 [facility] Comment on above: Result Comment: Canc elled via OM: Order cancelled - Patient discharged Performed By: #### L 503.7505, L503.6005, L500.4050, L501.4021, L100.0100 #### [facility] [address] [place], [address] PLT Normal 150-450 [facility] Comment on above: Result Comment: Canc elled via OM: Order cancelled - Patient discharged Performed By: #### L 503.7505, L503.6005, L500.4050, L501.4021, L100.0100 #### [facility] [address] [place], [address] RBC Normal 4.2-5.4 [facility] Comment on above: Result Comment: Canc elled via OM: Order cancelled - Patient discharged Performed By: #### L 503.7505, L503.6005, L500.4050, L501.4021, L100.0100 #### [facility] [address] [place], [address] RDW CV Normal 11.6-14.6 [facility] Comment on above: Result Comment: Canc elled via OM: Order cancelled - Patient discharged Performed By: #### L 503.7505, L503.6005, L500.4050, L501.4021, L100.0100 #### [facility] [address] [place], [address] RDW SD Normal 35.1-43.9 [facility] Comment on above: Result Comment: Canc elled via OM: Order cancelled - Patient discharged Performed By: #### L 503.7505, L503.6005, L500.4050, L501.4021, L100.0100 #### [facility] [address] [place], [address] WBC Normal 4.4-11.0 [facility] Comment on above: Result Comment: Canc elled via OM: Order cancelled - Patient discharged Performed By: #### L 503.7505, L503.6005, L500.4050, L501.4021, L100.0100 #### [facility] [address] [place], [address] Basic Metabolic Profile (BMP )on 02-17-2025 BUN Normal 4-19 [facility] Comment on above: Result Comment: Canc elled via OM: Order cancelled - Patient discharged Performed By: #### L 503.7505, L503.6005, L500.4050, L501.4021, L100.0100 #### [facility] [address] [place], [address] BUN/CRE Normal 10-20 [facility] Comment on above: Result Comment: Canc elled via OM: Order cancelled - Patient discharged Performed By: #### L 503.7505, L503.6005, L500.4050, L501.4021, L100.0100 #### [facility] [address] [place], [address] Calcium Normal 7.6-11.0 [facility] Comment on above: Result Comment: Canc elled via OM: Order cancelled - Patient discharged Performed By: #### L 503.7505, L503.6005, L500.4050, L501.4021, L100.0100 #### [facility] [address] [place], [address] CL Normal 98-108 [facility] Comment on above: Result Comment: Canc elled via OM: Order cancelled - Patient discharged Performed By: #### L 503.7505, L503.6005, L500.4050, L501.4021, L100.0100 #### [facility] [address] [place], [address] CO2 Normal 21.0-32.0 [facility] Comment on above: Result Comment: Canc elled via OM: Order cancelled - Patient discharged Performed By: #### L 503.7505, L503.6005, L500.4050, L501.4021, L100.0100 #### [facility] [address] [place], [address] CREAT,SERUM Normal 0.70-1.20 [facility] Comment on above: Result Comment: Canc elled via OM: Order cancelled - Patient discharged Performed By: #### L 503.7505, L503.6005, L500.4050, L501.4021, L100.0100 #### [facility] [address] [place], [address] eGFR Normal >60 [facility] Comment on above: Result Comment: Canc elled via OM: Order cancelled - Patient discharged Performed By: #### L 503.7505, L503.6005, L500.4050, L501.4021, L100.0100 #### [facility] [address] [place], [address] GAP Normal 5-15 [facility] Comment on above: Result Comment: Canc elled via OM: Order cancelled - Patient discharged Performed By: #### L 503.7505, L503.6005, L500.4050, L501.4021, L100.0100 #### [facility] [address] [place], [address] GLU Normal 70-99 [facility] Comment on above: Result Comment: Canc elled via OM: Order cancelled - Patient discharged Performed By: #### L 503.7505, L503.6005, L500.4050, L501.4021, L100.0100 #### [facility] [address] [place], [address] Potassium Normal 3.3-5.1 [facility] Comment on above: Result Comment: Canc elled via OM: Order cancelled - Patient discharged Performed By: #### L 503.7505, L503.6005, L500.4050, L501.4021, L100.0100 #### [facility] [address] [place], [address] Basic Metabolic Profile (BMP) Normal 133-145 [facility] Comment on above: Result Comment: Canc elled via OM: Order cancelled - Patient discharged Performed By: #### L 503.7505, L503.6005, L500.4050, L501.4021, L100.0100 #### [facility] [address] [place], [address] CBC W/Diff, Automatedon 08-0 8-2024 Absolute Neut Normal 2.0-7.7 [facility] Comment on above: Result Comment: Canc elled via OM: Order cancelled - Patient discharged Performed By: #### L 503.7505, L503.6005, L500.4050, L501.4021, L100.0100 #### [facility] [address] [place], [address] HCT Normal 37-47 [facility] Comment on above: Result Comment: Canc elled via OM: Order cancelled - Patient discharged Performed By: #### L 503.7505, L503.6005, L500.4050, L501.4021, L100.0100 #### [facility] [address] [place], [address] HGB Normal 12.0-15.0 [facility] Comment on above: Result Comment: Canc elled via OM: Order cancelled - Patient discharged Performed By: #### L 503.7505, L503.6005, L500.4050, L501.4021, L100.0100 #### [facility] [address] [place], [address] MCH Normal 27.0-32.0 [facility] Comment on above: Result Comment: Canc elled via OM: Order cancelled - Patient discharged Performed By: #### L 503.7505, L503.6005, L500.4050, L501.4021, L100.0100 #### [facility] [address] [place], [address] MCHC Normal 32-36 [facility] Comment on above: Result Comment: Canc elled via OM: Order cancelled - Patient discharged Performed By: #### L 503.7505, L503.6005, L500.4050, L501.4021, L100.0100 #### [facility] [address] [place], [address] MCV Normal 81-99 [facility] Comment on above: Result Comment: Canc elled via OM: Order cancelled - Patient discharged Performed By: #### L 503.7505, L503.6005, L500.4050, L501.4021, L100.0100 #### [facility] [address] [place], [address] NEUT% Normal 47-70 [facility] Comment on above: Result Comment: Canc elled via OM: Order cancelled - Patient discharged Performed By: #### L 503.7505, L503.6005, L500.4050, L501.4021, L100.0100 #### [facility] [address] [place], [address] PLT Normal 150-450 [facility] Comment on above: Result Comment: Canc elled via OM: Order cancelled - Patient discharged Performed By: #### L 503.7505, L503.6005, L500.4050, L501.4021, L100.0100 #### [facility] [address] [place], [address] RBC Normal 4.2-5.4 [facility] Comment on above: Result Comment: Canc elled via OM: Order cancelled - Patient discharged Performed By: #### L 503.7505, L503.6005, L500.4050, L501.4021, L100.0100 #### [facility] [address] [place], [address] RDW CV Normal 11.6-14.6 [facility] Comment on above: Result Comment: Canc elled via OM: Order cancelled - Patient discharged Performed By: #### L 503.7505, L503.6005, L500.4050, L501.4021, L100.0100 #### [facility] [address] [place], [address] RDW SD Normal 35.1-43.9 [facility] Comment on above: Result Comment: Canc elled via OM: Order cancelled - Patient discharged Performed By: #### L 503.7505, L503.6005, L500.4050, L501.4021, L100.0100 #### [facility] [address] [place], [address] WBC Normal 4.4-11.0 [facility] Comment on above: Result Comment: Canc elled via OM: Order cancelled - Patient discharged Performed By: #### L 503.7505, L503.6005, L500.4050, L501.4021, L100.0100 #### [facility] [address] [place], [address] Basic Metabolic Profile (BMP )on 02-16-2025 BUN Normal 4-19 [facility] Comment on above: Result Comment: Canc elled via OM: Order cancelled - Patient discharged Performed By: #### L 503.7505, L503.6005, L500.4050, L501.4021, L100.0100 #### [facility] [address] [place], [address] BUN/CRE Normal 10-20 [facility] Comment on above: Result Comment: Canc elled via OM: Order cancelled - Patient discharged Performed By: #### L 503.7505, L503.6005, L500.4050, L501.4021, L100.0100 #### [facility] [address] [place], [address] Calcium Normal 7.6-11.0 [facility] Comment on above: Result Comment: Canc elled via OM: Order cancelled - Patient discharged Performed By: #### L 503.7505, L503.6005, L500.4050, L501.4021, L100.0100 #### [facility] [address] [place], [address] CL Normal 98-108 [facility] Comment on above: Result Comment: Canc elled via OM: Order cancelled - Patient discharged Performed By: #### L 503.7505, L503.6005, L500.4050, L501.4021, L100.0100 #### [facility] [address] [place], [address] CO2 Normal 21.0-32.0 [facility] Comment on above: Result Comment: Canc elled via OM: Order cancelled - Patient discharged Performed By: #### L 503.7505, L503.6005, L500.4050, L501.4021, L100.0100 #### [facility] [address] [place], [address] CREAT,SERUM Normal 0.70-1.20 [facility] Comment on above: Result Comment: Canc elled via OM: Order cancelled - Patient discharged Performed By: #### L 503.7505, L503.6005, L500.4050, L501.4021, L100.0100 #### [facility] [address] [place], [address] eGFR Normal >60 [facility] Comment on above: Result Comment: Canc elled via OM: Order cancelled - Patient discharged Performed By: #### L 503.7505, L503.6005, L500.4050, L501.4021, L100.0100 #### [facility] [address] [place], [address] GAP Normal 5-15 [facility] Comment on above: Result Comment: Canc elled via OM: Order cancelled - Patient discharged Performed By: #### L 503.7505, L503.6005, L500.4050, L501.4021, L100.0100 #### [facility] [address] [place], [address] GLU Normal 70-99 [facility] Comment on above: Result Comment: Canc elled via OM: Order cancelled - Patient discharged Performed By: #### L 503.7505, L503.6005, L500.4050, L501.4021, L100.0100 #### [facility] [address] [place], [address] Potassium Normal 3.3-5.1 [facility] Comment on above: Result Comment: Canc elled via OM: Order cancelled - Patient discharged Performed By: #### L 503.7505, L503.6005, L500.4050, L501.4021, L100.0100 #### [facility] [address] [place], [address] Basic Metabolic Profile (BMP) Normal 133-145 [facility] Comment on above: Result Comment: Canc elled via OM: Order cancelled - Patient discharged Performed By: #### L 503.7505, L503.6005, L500.4050, L501.4021, L100.0100 #### [facility] [address] [place], [address] CBC W/Diff, Automatedon 08-0 -2024 Absolute Neut Normal 2.0-7.7 [facility] Comment on above: Result Comment: Canc elled via OM: Order cancelled - Patient discharged Performed By: #### L 503.7505, L503.6005, L500.4050, L501.4021, L100.0100 #### [facility] [address] [place], [address] HCT Normal 37-47 [facility] Comment on above: Result Comment: Canc elled via OM: Order cancelled - Patient discharged Performed By: #### L 503.7505, L503.6005, L500.4050, L501.4021, L100.0100 #### [facility] [address] [place], [address] HGB Normal 12.0-15.0 [facility] Comment on above: Result Comment: Canc elled via OM: Order cancelled - Patient discharged Performed By: #### L 503.7505, L503.6005, L500.4050, L501.4021, L100.0100 #### [facility] [address] [place], [address] MCH Normal 27.0-32.0 [facility] Comment on above: Result Comment: Canc elled via OM: Order cancelled - Patient discharged Performed By: #### L 503.7505, L503.6005, L500.4050, L501.4021, L100.0100 #### [facility] [address] [place], [address] MCHC Normal 32-36 [facility] Comment on above: Result Comment: Canc elled via OM: Order cancelled - Patient discharged Performed By: #### L 503.7505, L503.6005, L500.4050, L501.4021, L100.0100 #### [facility] [address] [place], [address] MCV Normal 81-99 [facility] Comment on above: Result Comment: Canc elled via OM: Order cancelled - Patient discharged Performed By: #### L 503.7505, L503.6005, L500.4050, L501.4021, L100.0100 #### [facility] [address] [place], [address] NEUT% Normal 47-70 [facility] Comment on above: Result Comment: Canc elled via OM: Order cancelled - Patient discharged Performed By: #### L 503.7505, L503.6005, L500.4050, L501.4021, L100.0100 #### [facility] [address] [place], [address] PLT Normal 150-450 [facility] Comment on above: Result Comment: Canc elled via OM: Order cancelled - Patient discharged Performed By: #### L 503.7505, L503.6005, L500.4050, L501.4021, L100.0100 #### [facility] [address] [place], [address] RBC Normal 4.2-5.4 [facility] Comment on above: Result Comment: Canc elled via OM: Order cancelled - Patient discharged Performed By: #### L 503.7505, L503.6005, L500.4050, L501.4021, L100.0100 #### [facility] [address] [place], [address] RDW CV Normal 11.6-14.6 [facility] Comment on above: Result Comment: Canc elled via OM: Order cancelled - Patient discharged Performed By: #### L 503.7505, L503.6005, L500.4050, L501.4021, L100.0100 #### [facility] [address] [place], [address] RDW SD Normal 35.1-43.9 [facility] Comment on above: Result Comment: Canc elled via OM: Order cancelled - Patient discharged Performed By: #### L 503.7505, L503.6005, L500.4050, L501.4021, L100.0100 #### [facility] [address] [place], [address] WBC Normal 4.4-11.0 [facility] Comment on above: Result Comment: Canc elled via OM: Order cancelled - Patient discharged Performed By: #### L 503.7505, L503.6005, L500.4050, L501.4021, L100.0100 #### [facility] [address] [place], [address] Basic Metabolic Profile (BMP )on 02-15-2025 BUN Normal 4-19 [facility] Comment on above: Result Comment: Canc elled via OM: Order cancelled - Patient discharged Performed By: #### L 500.2500, L100.0100 #### [facility] [address] [place], [address] BUN/CRE Normal 10-20 [facility] Comment on above: Result Comment: Canc elled via OM: Order cancelled - Patient discharged Performed By: #### L 500.2500, L100.0100 #### [facility] [address] [place], [address] Calcium Normal 7.6-11.0 [facility] Comment on above: Result Comment: Canc elled via OM: Order cancelled - Patient discharged Performed By: #### L 500.2500, L100.0100 #### [facility] [address] [place], [address] CL Normal 98-108 [facility] Comment on above: Result Comment: Canc elled via OM: Order cancelled - Patient discharged Performed By: #### L 500.2500, L100.0100 #### [facility] [address] [place], [address] CO2 Normal 21.0-32.0 [facility] Comment on above: Result Comment: Canc elled via OM: Order cancelled - Patient discharged Performed By: #### L 500.2500, L100.0100 #### [facility] [address] [place], [address] CREAT,SERUM Normal 0.70-1.20 [facility] Comment on above: Result Comment: Canc elled via OM: Order cancelled - Patient discharged Performed By: #### L 500.2500, L100.0100 #### [facility] [address] [place], [address] eGFR Normal >60 [facility] Comment on above: Result Comment: Canc elled via OM: Order cancelled - Patient discharged Performed By: #### L 500.2500, L100.0100 #### [facility] [address] [place], [address] GAP Normal 5-15 [facility] Comment on above: Result Comment: Canc elled via OM: Order cancelled - Patient discharged Performed By: #### L 500.2500, L100.0100 #### [facility] [address] [place], [address] GLU Normal 70-99 [facility] Comment on above: Result Comment: Canc elled via OM: Order cancelled - Patient discharged Performed By: #### L 500.2500, L100.0100 #### [facility] [address] [place], [address] Potassium Normal 3.3-5.1 [facility] Comment on above: Result Comment: Canc elled via OM: Order cancelled - Patient discharged Performed By: #### L 500.2500, L100.0100 #### [facility] [address] [place], [address] Basic Metabolic Profile (BMP) Normal 133-145 [facility] Comment on above: Result Comment: Canc elled via OM: Order cancelled - Patient discharged Performed By: #### L 500.2500, L100.0100 #### [facility] [address] [place], [address] CBC W/Diff, Automatedon 08-0 -2024 Absolute Neut Normal 2.0-7.7 [facility] Comment on above: Result Comment: Canc elled via OM: Order cancelled - Patient discharged Performed By: #### L 500.2500, L100.0100 #### [facility] [address] [place], [address] HCT Normal 37-47 [facility] Comment on above: Result Comment: Canc elled via OM: Order cancelled - Patient discharged Performed By: #### L 500.2500, L100.0100 #### [facility] [address] [place], [address] HGB Normal 12.0-15.0 [facility] Comment on above: Result Comment: Canc elled via OM: Order cancelled - Patient discharged Performed By: #### L 500.2500, L100.0100 #### [facility] [address] [place], [address] MCH Normal 27.0-32.0 [facility] Comment on above: Result Comment: Canc elled via OM: Order cancelled - Patient discharged Performed By: #### L 500.2500, L100.0100 #### [facility] [address] [place], [address] MCHC Normal 32-36 [facility] Comment on above: Result Comment: Canc elled via OM: Order cancelled - Patient discharged Performed By: #### L 500.2500, L100.0100 #### [facility] [address] [place], [address] MCV Normal 81-99 [facility] Comment on above: Result Comment: Canc elled via OM: Order cancelled - Patient discharged Performed By: #### L 500.2500, L100.0100 #### [facility] [address] [place], [address] NEUT% Normal 47-70 [facility] Comment on above: Result Comment: Canc elled via OM: Order cancelled - Patient discharged Performed By: #### L 500.2500, L100.0100 #### [facility] [address] [place], [address] PLT Normal 150-450 [facility] Comment on above: Result Comment: Canc elled via OM: Order cancelled - Patient discharged Performed By: #### L 500.2500, L100.0100 #### [facility] [address] [place], [address] RBC Normal 4.2-5.4 [facility] Comment on above: Result Comment: Canc elled via OM: Order cancelled - Patient discharged Performed By: #### L 500.2500, L100.0100 #### [facility] [address] [place], [address] RDW CV Normal 11.6-14.6 [facility] Comment on above: Result Comment: Canc elled via OM: Order cancelled - Patient discharged Performed By: #### L 500.2500, L100.0100 #### [facility] [address] [place], [address] RDW SD Normal 35.1-43.9 [facility] Comment on above: Result Comment: Canc elled via OM: Order cancelled - Patient discharged Performed By: #### L 500.2500, L100.0100 #### [facility] [address] [place], [address] WBC Normal 4.4-11.0 [facility] Comment on above: Result Comment: Canc elled via OM: Order cancelled - Patient discharged Performed By: #### L 500.2500, L100.0100 #### [facility] [address] [place], [address] Basic Metabolic Profile (BMP )on 02-14-2025 BUN Normal 4-19 [facility] Comment on above: Result Comment: Canc elled via OM: Order cancelled - Patient discharged Performed By: #### L 503.7505, L503.6005, L500.4050, L501.4021, L100.0100 #### [facility] [address] [place], [address] BUN/CRE Normal 10-20 [facility] Comment on above: Result Comment: Canc elled via OM: Order cancelled - Patient discharged Performed By: #### L 503.7505, L503.6005, L500.4050, L501.4021, L100.0100 #### [facility] [address] [place], [address] Calcium Normal 7.6-11.0 [facility] Comment on above: Result Comment: Canc elled via OM: Order cancelled - Patient discharged Performed By: #### L 503.7505, L503.6005, L500.4050, L501.4021, L100.0100 #### [facility] [address] [place], [address] CL Normal 98-108 [facility] Comment on above: Result Comment: Canc elled via OM: Order cancelled - Patient discharged Performed By: #### L 503.7505, L503.6005, L500.4050, L501.4021, L100.0100 #### [facility] [address] [place], [address] CO2 Normal 21.0-32.0 [facility] Comment on above: Result Comment: Canc elled via OM: Order cancelled - Patient discharged Performed By: #### L 503.7505, L503.6005, L500.4050, L501.4021, L100.0100 #### [facility] [address] [place], [address] CREAT,SERUM Normal 0.70-1.20 [facility] Comment on above: Result Comment: Canc elled via OM: Order cancelled - Patient discharged Performed By: #### L 503.7505, L503.6005, L500.4050, L501.4021, L100.0100 #### [facility] [address] [place], [address] eGFR Normal >60 [facility] Comment on above: Result Comment: Canc elled via OM: Order cancelled - Patient discharged Performed By: #### L 503.7505, L503.6005, L500.4050, L501.4021, L100.0100 #### [facility] [address] [place], [address] GAP Normal 5-15 [facility] Comment on above: Result Comment: Canc elled via OM: Order cancelled - Patient discharged Performed By: #### L 503.7505, L503.6005, L500.4050, L501.4021, L100.0100 #### [facility] [address] [place], [address] GLU Normal 70-99 [facility] Comment on above: Result Comment: Canc elled via OM: Order cancelled - Patient discharged Performed By: #### L 503.7505, L503.6005, L500.4050, L501.4021, L100.0100 #### [facility] [address] [place], [address] Potassium Normal 3.3-5.1 [facility] Comment on above: Result Comment: Canc elled via OM: Order cancelled - Patient discharged Performed By: #### L 503.7505, L503.6005, L500.4050, L501.4021, L100.0100 #### [facility] [address] [place], [address] Basic Metabolic Profile (BMP) Normal 133-145 [facility] Comment on above: Result Comment: Canc elled via OM: Order cancelled - Patient discharged Performed By: #### L 503.7505, L503.6005, L500.4050, L501.4021, L100.0100 #### [facility] [address] [place], [address] Basic metabolic 2000 panelon 02-14-2025 Anion gap [Moles/Vol] 13 mmol/L Normal 8-15 [facility] Comment on above: Order Comment: Speci men Type: BLOOD SPECIMENOrdering Facility: [facility] Address: [address] [place] [address] Performed By: #### 2 276-4, 01303-8, 04954-3 ####[facility] [id number] [place] [address] [place] Calcium [Mass/Vol] 9.5 mg/dL Normal 8.5-10.2 [facility] Comment on above: Order Comment: Speci men Type: BLOOD SPECIMENOrdering Facility: [facility] Address: [address] [place], [place] [address] Performed By: #### 2 276-4, 21715-7, 13162-1 ####[facility]IA [id number] [place] [id number] [place] Chloride [Moles/Vol] 100 mmol/L Normal 98-107 [facility] Comment on above: Order Comment: Speci men Type: BLOOD SPECIMENOrdering Facility: [facility] Address: [address] [place] [address] Performed By: #### 2 276-4, 90958-0, 66786-0 ####[facility] [id number] [address] [address] [place] CO2 [Moles/Vol] 22 mmol/L Normal 22-30 [facility] Comment on above: Order Comment: Speci men Type: BLOOD SPECIMENOrdering Facility: [facility] Address: [address] [place] [address] Performed By: #### 2 276-4, , ####[facility]IA [id number] [address] [address] [place] Creatinine [Mass/Vol] 1.43 mg/dL High 0.58-0.96 [facility] Comment on above: Order Comment: Speci men Type: BLOOD SPECIMENOrdering Facility: [facility] Address: [address] [place] [address] Performed By: #### 2 276-4, , ####[facility] [id number] [address] [address] [place] eGFRcr SerPlBld CKD-EPI 2020 36 mL/min/1.73m??? Low >=60 [facility] Comment on above: Order Comment: Speci men Type: BLOOD SPECIMENOrdering Facility: [facility] Address: [address] [place] [address] Result Comment: Martha mated Glomerular Filtration Rate [...] actual GFR. Performed By: #### 2 276-4, 31897-1, 87947-1 ####[facility] [id number] [address] [address] [place] Glucose [Mass/Vol] 73 mg/dL Low 74-99 [facility] Comment on above: Order Comment: Speci men Type: BLOOD SPECIMENOrdering Facility: [facility] Address: [address] [place] [address] Result Comment: The [place] [employer] (ADA) provides guidance for cutoff [...] Standards of Medical Care in Diabetes 2016, [place] [employer]. Diabetes Care. 2016.39(Suppl 1). Performed By: #### 2 276-4, 32239-9, 91027-2 ####[facility] LABCLIA [id number] [place] [address] [place] Potassium [Moles/Vol] 4.3 mmol/L Normal 3.7-5.1 [facility] Comment on above: Order Comment: Noheliai men Type: BLOOD SPECIMENOrdering Facility: [facility] Address: [address] [place] [address] Performed By: #### 2 276-4, 69018-0, 58932-6 ####[facility] LABCLIA [id number] [place] [id number] [place] Sodium [Moles/Vol] 135 mmol/L Low 136-144 [facility] Comment on above: Order Comment: Speci men Type: BLOOD SPECIMENOrdering Facility: [facility] Address: [address] [place] [address] Performed By: #### 2 276-4, 69372-3, 98605-4 ####[facility] LABCLIA [id number] [address] [address] [place] Urea nitrogen [Mass/Vol] 20 mg/dL Normal 7-21 [facility] Comment on above: Order Comment: Speci men Type: BLOOD SPECIMENOrdering Facility: [facility] Address: [address] [place] [address] Performed By: #### 2 276-4, 07041-2, 52252-7 ####[facility] LABCLIA [id number] [place] [address] [place] CBC W Auto Differential pane l (Bld)on 02-14-2025 Basophils (Bld) [#/Vol] 0.05 10*3/uL Normal <0.11 [facility] Comment on above: Order Comment: Speci men Type: BLOOD SPECIMENOrdering Facility: [facility] Address: [address] [place] [address] Performed By: #### 5 7021-8 ####[facility] LABCLIA [id number] [address] [place] Basophils/100 WBC (Bld) 0.8 % Normal C [facility] Comment on above: Order Comment: Speci men Type: BLOOD SPECIMENOrdering Facility: [facility] Address: [address] [place] [address] Performed By: #### 5 7021-8 ####[facility] LABCLIA [id number] [address] STATES OF [facility] Differential cell count method Nom (Bld) Auto Normal [facility] Comment on above: Order Comment: Speci men Type: BLOOD SPECIMENOrdering Facility: [facility] Address: [address] [place] [address] Performed By: #### 5 7021-8 ####[facility] LABCLIA [id number] [place] [address] [place] Eosinophils (Bld) [#/Vol] 0.20 10*3/uL Normal <0.46 [facility] Comment on above: Order Comment: Speci men Type: BLOOD SPECIMENOrdering Facility: [facility] Address: [address] [place] [address] Performed By: #### 5 7021-8 ####[facility] LABCLIA [id number] [place] [address] [place] Eosinophils/100 WBC (Bld) 3.4 % Normal [facility] Comment on above: Order Comment: Speci men Type: BLOOD SPECIMENOrdering Facility: [facility] Address: [address] [place] [address] Performed By: #### 5 7021-8 ####[facility] LABCLIA [id number] [place] [address] [place] Erythrocyte distribution width (RBC) [Ratio] 21.2 % High 11.5-15.0 [facility] Comment on above: Order Comment: Speci men Type: BLOOD SPECIMENOrdering Facility: [facility] Address: [address] [place] [address] Performed By: #### 5 7021-8 ####[facility]IA [id number] [place] [address] [place] Hematocrit (Bld) [Volume fraction] 33.8 % Low 36.0-46.0 [facility] Comment on above: Order Comment: Speci men Type: BLOOD SPECIMENOrdering Facility: [facility] Address: [address] [place] [address] Performed By: #### 5 7021-8 ####[facility] LABCLIA [id number] [place] [id number] [place] Hemoglobin (Bld) [Mass/Vol] 9.8 g/dL Low 11.5-15.5 [facility] Comment on above: Order Comment: Speci men Type: BLOOD SPECIMENOrdering Facility: [facility] Address: [address] [place] [address] Performed By: #### 5 7021-8 ####[facility] LABCLIA [id number] [address] [place] [address] [place] Immature granulocytes (Bld) [#/Vol] 10*3/uL Normal <0.10 [facility] Comment on above: Order Comment: Speci men Type: BLOOD SPECIMENOrdering Facility: [facility] Address: [address] [place] [address] Performed By: #### 5 7021-8 ####[facility] LABCLIA [id number] [address], [facility] [place] Immature granulocytes/100 WBC (Bld) 0.3 % Normal [facility] Comment on above: Order Comment: Speci men Type: BLOOD SPECIMENOrdering Facility: [facility] Address: [address] [place] [address] Performed By: #### 5 7021-8 ####[facility] LABCLIA [id number] [address], [place] [address] [place] Lymphocytes (Bld) [#/Vol] 1.47 10*3/uL Normal 1.00-4.00 [facility] Comment on above: Order Comment: Speci men Type: BLOOD SPECIMENOrdering Facility: [facility] Address: [address] [place] [address] Performed By: #### 5 7021-8 ####[facility]CLIA [id number] [address], [facility] [place] Lymphocytes/100 WBC (Bld) 24.9 % Normal [facility] Comment on above: Order Comment: Speci men Type: BLOOD SPECIMENOrdering Facility: [facility] Address: [address] [place] [address] Performed By: #### 5 7021-8 ####[facility] LABCLIA [id number] [address] [place] [address] [place] MCH (RBC) [Entitic mass] 23.7 pg Low 26.0-34.0 [facility] Comment on above: Order Comment: Speci men Type: BLOOD SPECIMENOrdering Facility: [facility] Address: [address] [place] [address] Performed By: #### 5 7021-8 ####[facility] LABCLIA [id number] [place] [address] [place] MCHC (RBC) [Mass/Vol] 29.0 g/dL Low 30.5-36.0 [facility] Comment on above: Order Comment: Speci men Type: BLOOD SPECIMENOrdering Facility: [facility] Address: [address] [place] [address] Performed By: #### 5 7021-8 ####[facility] LABCLIA [id number] [place] [address] [place] MCV (RBC) [Entitic vol] 81.8 fL Normal 80.0-100.0 C [facility] Comment on above: Order Comment: Speci men Type: BLOOD SPECIMENOrdering Facility: [facility] Address: [address] [place] [address] Performed By: #### 5 7021-8 ####[facility] LABCLIA [id number] [place] [address] [place] Monocytes (Bld) [#/Vol] 0.75 10*3/uL Normal <0.87 [facility] Comment on above: Order Comment: Speci men Type: BLOOD SPECIMENOrdering Facility: [facility] Address: [address] [place] [address] Performed By: #### 5 7021-8 ####[facility] LABCLIA [id number] [place] [address] [place] Monocytes/100 WBC (Bld) 12.7 % Normal C [facility] Comment on above: Order Comment: Speci men Type: BLOOD SPECIMENOrdering Facility: [facility] Address: [address] [place] [address] Performed By: #### 5 7021-8 ####[facility] LABCLIA [id number] [address] [address] [place] Neutrophils (Bld) [#/Vol] 3.41 10*3/uL Normal 1.45-7.50 [facility] Comment on above: Order Comment: Speci men Type: BLOOD SPECIMENOrdering Facility: [facility] Address: [address] [place] [address] Performed By: #### 5 7021-8 ####[facility] LABCLIA [id number] [place] [address] [place] Neutrophils/100 WBC (Bld) 57.9 % Normal [facility] Comment on above: Order Comment: Speci men Type: BLOOD SPECIMENOrdering Facility: [facility] Address: [address] [place] [address] Performed By: #### 5 7021-8 ####[facility] LABCLIA [id number] [place] [address] [place] Nucleated RBC (Bld) [#/Vol] 10*3/uL Normal <0.01 [facility] Comment on above: Order Comment: Speci men Type: BLOOD SPECIMENOrdering Facility: [facility] Address: [address] [place] [address] Performed By: #### 5 7021-8 ####[facility] LABCLIA [id number] [place] [address] [place] Nucleated RBC/100 WBC (Bld) [Ratio] 0.0 /100 WBC Normal [facility] Comment on above: Order Comment: Speci men Type: BLOOD SPECIMENOrdering Facility: [facility] Address: [address] [place] [address] Performed By: #### 5 7021-8 ####[facility] LABCLIA [id number] [place] [id number] [place] Platelet mean volume (Bld) [Entitic vol] 10.6 fL Normal 9.0-12.7 [facility] Comment on above: Order Comment: Speci men Type: BLOOD SPECIMENOrdering Facility: [facility] Address: [address] [place] [address] Performed By: #### 5 7021-8 ####[facility] LABCLIA [id number] [place] [address] [place] Platelets (Bld) [#/Vol] 354 10*3/uL Normal 150-400 [facility] Comment on above: Order Comment: Speci men Type: BLOOD SPECIMENOrdering Facility: [facility] Address: [address] [place] [address] Performed By: #### 5 7021-8 ####[facility] LABCLIA [id number] [place] [address] [place] RBC (Bld) [#/Vol] 4.13 10*6/uL Normal 3.90-5.20 [facility] Comment on above: Order Comment: Speci men Type: BLOOD SPECIMENOrdering Facility: [facility] Address: [address] [place] [address] Performed By: #### 5 7021-8 ####[facility] LABCLIA [id number] [place] [address] [place] WBC (Bld) [#/Vol] 5.90 10*3/uL Normal 3.70-11.00 [facility] Comment on above: Order Comment: Speci men Type: BLOOD SPECIMENOrdering Facility: [facility] Address: [address] [place] [address] Performed By: #### 5 7021-8 ####[facility] LABCLIA [id number] [place] [id number] [place] CBC W/Diff, Automatedon 08-0 Absolute Neut Normal 2.0-7.7 [facility] Comment on above: Result Comment: Canc elled via OM: Order cancelled - Patient discharged Performed By: #### L 503.7505, L503.6005, L500.4050, L501.4021, L100.0100 #### [facility] [address] [place], [address] HCT Normal 37-47 [facility] Comment on above: Result Comment: Canc elled via OM: Order cancelled - Patient discharged Performed By: #### L 503.7505, L503.6005, L500.4050, L501.4021, L100.0100 #### [facility] [address] [place], [address] HGB Normal 12.0-15.0 [facility] Comment on above: Result Comment: Canc elled via OM: Order cancelled - Patient discharged Performed By: #### L 503.7505, L503.6005, L500.4050, L501.4021, L100.0100 #### [facility] [address] [place], [address] MCH Normal 27.0-32.0 [facility] Comment on above: Result Comment: Canc elled via OM: Order cancelled - Patient discharged Performed By: #### L 503.7505, L503.6005, L500.4050, L501.4021, L100.0100 #### [facility] [address] [place], [address] MCHC Normal 32-36 [facility] Comment on above: Result Comment: Canc elled via OM: Order cancelled - Patient discharged Performed By: #### L 503.7505, L503.6005, L500.4050, L501.4021, L100.0100 #### [facility] [address] [place], [address] MCV Normal 81-99 [facility] Comment on above: Result Comment: Canc elled via OM: Order cancelled - Patient discharged Performed By: #### L 503.7505, L503.6005, L500.4050, L501.4021, L100.0100 #### [facility] [address] [place], [address] NEUT% Normal 47-70 [facility] Comment on above: Result Comment: Canc elled via OM: Order cancelled - Patient discharged Performed By: #### L 503.7505, L503.6005, L500.4050, L501.4021, L100.0100 #### [facility] [address] [place], [address] PLT Normal 150-450 [facility] Comment on above: Result Comment: Canc elled via OM: Order cancelled - Patient discharged Performed By: #### L 503.7505, L503.6005, L500.4050, L501.4021, L100.0100 #### [facility] [address] [place], [address] RBC Normal 4.2-5.4 [facility] Comment on above: Result Comment: Canc elled via OM: Order cancelled - Patient discharged Performed By: #### L 503.7505, L503.6005, L500.4050, L501.4021, L100.0100 #### [facility] [address] [place], [address] RDW CV Normal 11.6-14.6 [facility] Comment on above: Result Comment: Canc elled via OM: Order cancelled - Patient discharged Performed By: #### L 503.7505, L503.6005, L500.4050, L501.4021, L100.0100 #### [facility] [address] [place], [address] RDW SD Normal 35.1-43.9 [facility] Comment on above: Result Comment: Canc elled via OM: Order cancelled - Patient discharged Performed By: #### L 503.7505, L503.6005, L500.4050, L501.4021, L100.0100 #### [facility] [address] [place], [address] WBC Normal 4.4-11.0 [facility] Comment on above: Result Comment: Canc elled via OM: Order cancelled - Patient discharged Performed By: #### L 503.7505, L503.6005, L500.4050, L501.4021, L100.0100 #### [facility] [address] [place], [address] CNOVon 02-14-2025 CNOV Office Visit ([facility]) GUDELIA GUPTA ([id number]) 1940 F Date Time Provider Department 02/14/25 [...] and due to labs was referred to [facility] ER where she was found to be [...] BLOOD COUNT AND DIFFERENTIAL [SQCBCDIF] Order #: [id number] FUTURE BASIC METABOLIC PANEL [SQBMP] Order #: [id number] FUTURE Prescriptions as of 02/14/2025 - ciprofloxacin [...] 0.5 table (more content not included)... Normal [facility] Ferritin SerPl-mCncon 2024 Ferritin [Mass/Vol] 66.7 ng/mL Normal 14.7-205.1 [facility] Comment on above: Order Comment: Speci men Type: BLOOD SPECIMENOrdering Facility: [facility] Address: [address] [place] [address] Performed By: #### 2 276-4, 28007-0, 53736-3 ####[facility] LABCLIA [id number] [address] [address] [place] Iron and Iron binding capaci ty panelon 02-14-2025 Iron [Mass/Vol] 35 ug/dL Low 41-186 [facility] Comment on above: Order Comment: Speci men Type: BLOOD SPECIMENOrdering Facility: [facility] Address: [address] [place] [address] Performed By: #### 2 276-4, 98849-4, 65223-4 ####[facility] LABCLIA [id number] [place] [id number] [place] Iron binding capacity [Mass/Vol] 392 ug/dL High 232-386 [facility] Comment on above: Order Comment: Speci men Type: BLOOD SPECIMENOrdering Facility: [facility] Address: [address] [place] [address] Performed By: #### 2 276-4, 38007-2, 04473-9 ####[facility] LABCLIA [id number] [place] [id number] [place] Iron/TIBC [Molar ratio] 8.9 % Low 15.0-57.0 C [facility] Comment on above: Order Comment: Speci men Type: BLOOD SPECIMENOrdering Facility: [facility] Address: [address] [place] [address] Performed By: #### 2 276-4, 96359-5, 23853-1 ####[facility] LABCLIA [id number] [address] [address] [place] Basic Metabolic Profile (BMP )on 02-13-2025 BUN Normal 4-19 [facility] Comment on above: Result Comment: Canc elled via OM: Order cancelled - Patient discharged Performed By: #### L 500.2500, L100.0100 #### [facility] [address] [place], [address] BUN/CRE Normal 10-20 [facility] Comment on above: Result Comment: Canc elled via OM: Order cancelled - Patient discharged Performed By: #### L 500.2500, L100.0100 #### [facility] [address] [place], [address] Calcium Normal 7.6-11.0 [facility] Comment on above: Result Comment: Canc elled via OM: Order cancelled - Patient discharged Performed By: #### L 500.2500, L100.0100 #### [facility] [address] [place], [address] CL Normal 98-108 [facility] Comment on above: Result Comment: Canc elled via OM: Order cancelled - Patient discharged Performed By: #### L 500.2500, L100.0100 #### [facility] [address] [place], [address] CO2 Normal 21.0-32.0 [facility] Comment on above: Result Comment: Canc elled via OM: Order cancelled - Patient discharged Performed By: #### L 500.2500, L100.0100 #### [facility] [address] [place], [address] CREAT,SERUM Normal 0.70-1.20 [facility] Comment on above: Result Comment: Canc elled via OM: Order cancelled - Patient discharged Performed By: #### L 500.2500, L100.0100 #### [facility] [address] [place], [address] eGFR Normal >60 [facility] Comment on above: Result Comment: Canc elled via OM: Order cancelled - Patient discharged Performed By: #### L 500.2500, L100.0100 #### [facility] [address] [place], [address] GAP Normal 5-15 [facility] Comment on above: Result Comment: Canc elled via OM: Order cancelled - Patient discharged Performed By: #### L 500.2500, L100.0100 #### [facility] [address] [place], [address] GLU Normal 70-99 [facility] Comment on above: Result Comment: Canc elled via OM: Order cancelled - Patient discharged Performed By: #### L 500.2500, L100.0100 #### [facility] [address] [place], [address] Potassium Normal 3.3-5.1 [facility] Comment on above: Result Comment: Canc elled via OM: Order cancelled - Patient discharged Performed By: #### L 500.2500, L100.0100 #### [facility] [address] [place], [address] Basic Metabolic Profile (BMP) Normal 133-145 [facility] Comment on above: Result Comment: Canc elled via OM: Order cancelled - Patient discharged Performed By: #### L 500.2500, L100.0100 #### [facility] [address] [place], [address] CBC W/Diff, Automatedon 08-0 Absolute Neut Normal 2.0-7.7 [facility] Comment on above: Result Comment: Canc elled via OM: Order cancelled - Patient discharged Performed By: #### L 500.2500, L100.0100 #### [facility] [address] [place], [address] HCT Normal 37-47 [facility] Comment on above: Result Comment: Canc elled via OM: Order cancelled - Patient discharged Performed By: #### L 500.2500, L100.0100 #### [facility] [address] [place], [address] HGB Normal 12.0-15.0 [facility] Comment on above: Result Comment: Canc elled via OM: Order cancelled - Patient discharged Performed By: #### L 500.2500, L100.0100 #### [facility] [address] [place], [address] MCH Normal 27.0-32.0 [facility] Comment on above: Result Comment: Canc elled via OM: Order cancelled - Patient discharged Performed By: #### L 500.2500, L100.0100 #### [facility] [address] [place], [address] MCHC Normal 32-36 [facility] Comment on above: Result Comment: Canc elled via OM: Order cancelled - Patient discharged Performed By: #### L 500.2500, L100.0100 #### [facility] [address] [place], [address] MCV Normal 81-99 [facility] Comment on above: Result Comment: Canc elled via OM: Order cancelled - Patient discharged Performed By: #### L 500.2500, L100.0100 #### [facility] [address] [place], [address] NEUT% Normal 47-70 [facility] Comment on above: Result Comment: Canc elled via OM: Order cancelled - Patient discharged Performed By: #### L 500.2500, L100.0100 #### [facility] [address] [place], [address] PLT Normal 150-450 [facility] Comment on above: Result Comment: Canc elled via OM: Order cancelled - Patient discharged Performed By: #### L 500.2500, L100.0100 #### [facility] [address] [place], [address] RBC Normal 4.2-5.4 [facility] Comment on above: Result Comment: Canc elled via OM: Order cancelled - Patient discharged Performed By: #### L 500.2500, L100.0100 #### [facility] [address] [place], [address] RDW CV Normal 11.6-14.6 [facility] Comment on above: Result Comment: Canc elled via OM: Order cancelled - Patient discharged Performed By: #### L 500.2500, L100.0100 #### [facility] [address] [place], [address] RDW SD Normal 35.1-43.9 [facility] Comment on above: Result Comment: Canc elled via OM: Order cancelled - Patient discharged Performed By: #### L 500.2500, L100.0100 #### [facility] [address] [place], [address] WBC Normal 4.4-11.0 [facility] Comment on above: Result Comment: Canc elled via OM: Order cancelled - Patient discharged Performed By: #### L 500.2500, L100.0100 #### [facility] [address] [place], [address] C[facility]Non [facility] GUDELIA GUPTA ([id number]) 1940 F Date Time Provider Department 02/13/25 [facility] During your visit today, we recorded the following information about you: Rose Manuel LPN 02/13/2025 3:04 PM Signed Maryann with [facility] Nursing calls for the followin) Pt is taking Cipro for uti for another week - shows it inhibits the metabolizing of simvastatin. 2) Amitriptyline/potass ium - amitriptyline delays emptying of GI, potassium will sit too long in GI track. 3) POC: Nursing will see pt once a week x 4 weeks to educate pt on CHF and medications. Call Phan @ [phone] with 's messages as Maryann will be [...] eyes twice daily. 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 Normal [facility] Basic Metabolic Profile (BMP )on 02-12-2025 BUN Normal - [facility] Comment on above: Result Comment: Canc elled via OM: Order cancelled - Patient discharged Performed By: #### L 500.2500, L100.0100 #### [facility] [address] [place], [address] BUN/CRE Normal 10-20 [facility] Comment on above: Result Comment: Canc elled via OM: Order cancelled - Patient discharged Performed By: #### L 500.2500, L100.0100 #### [facility] [address] [place], [address] Calcium Normal 7.6-11.0 [facility] Comment on above: Result Comment: Canc elled via OM: Order cancelled - Patient discharged Performed By: #### L 500.2500, L100.0100 #### [facility] [address] [place], [address] CL Normal 98-108 [facility] Comment on above: Result Comment: Canc elled via OM: Order cancelled - Patient discharged Performed By: #### L 500.2500, L100.0100 #### [facility] [address] [place], [address] CO2 Normal 21.0-32.0 [facility] Comment on above: Result Comment: Canc elled via OM: Order cancelled - Patient discharged Performed By: #### L 500.2500, L100.0100 #### [facility] [address] [place], [address] CREAT,SERUM Normal 0.70-1.20 [facility] Comment on above: Result Comment: Canc elled via OM: Order cancelled - Patient discharged Performed By: #### L 500.2500, L100.0100 #### [facility] [address] [place], [address] eGFR Normal >60 [facility] Comment on above: Result Comment: Canc elled via OM: Order cancelled - Patient discharged Performed By: #### L 500.2500, L100.0100 #### [facility] [address] [place], [address] GAP Normal 5-15 [facility] Comment on above: Result Comment: Canc elled via OM: Order cancelled - Patient discharged Performed By: #### L 500.2500, L100.0100 #### [facility] [address] [place], [address] GLU Normal 70-99 [facility] Comment on above: Result Comment: Canc elled via OM: Order cancelled - Patient discharged Performed By: #### L 500.2500, L100.0100 #### [facility] [address] [place], [address] Potassium Normal 3.3-5.1 [facility] Comment on above: Result Comment: Canc elled via OM: Order cancelled - Patient discharged Performed By: #### L 500.2500, L100.0100 #### [facility] [address] [place], [address] Basic Metabolic Profile (BMP) Normal 133-145 [facility] Comment on above: Result Comment: Canc elled via OM: Order cancelled - Patient discharged Performed By: #### L 500.2500, L100.0100 #### [facility] [address] [place], [address] CBC W/Diff, Automatedon 08-0 -2024 Absolute Neut Normal 2.0-7.7 [facility] Comment on above: Result Comment: Canc elled via OM: Order cancelled - Patient discharged Performed By: #### L 500.2500, L100.0100 #### [facility] [address] [place], [address] HCT Normal 37-47 [facility] Comment on above: Result Comment: Canc elled via OM: Order cancelled - Patient discharged Performed By: #### L 500.2500, L100.0100 #### [facility] [address] [place], [address] HGB Normal 12.0-15.0 [facility] Comment on above: Result Comment: Canc elled via OM: Order cancelled - Patient discharged Performed By: #### L 500.2500, L100.0100 #### [facility] [address] [place], [address] MCH Normal 27.0-32.0 [facility] Comment on above: Result Comment: Canc elled via OM: Order cancelled - Patient discharged Performed By: #### L 500.2500, L100.0100 #### [facility] [address] [place], [address] MCHC Normal 32-36 [facility] Comment on above: Result Comment: Canc elled via OM: Order cancelled - Patient discharged Performed By: #### L 500.2500, L100.0100 #### [facility] [address] [place], [address] MCV Normal 81-99 [facility] Comment on above: Result Comment: Canc elled via OM: Order cancelled - Patient discharged Performed By: #### L 500.2500, L100.0100 #### [facility] [address] [place], [address] NEUT% Normal 47-70 [facility] Comment on above: Result Comment: Canc elled via OM: Order cancelled - Patient discharged Performed By: #### L 500.2500, L100.0100 #### [facility] [address] [place], [address] PLT Normal 150-450 [facility] Comment on above: Result Comment: Canc elled via OM: Order cancelled - Patient discharged Performed By: #### L 500.2500, L100.0100 #### [facility] [address] [place], [address] RBC Normal 4.2-5.4 [facility] Comment on above: Result Comment: Canc elled via OM: Order cancelled - Patient discharged Performed By: #### L 500.2500, L100.0100 #### [facility] [address] [place], [address] RDW CV Normal 11.6-14.6 [facility] Comment on above: Result Comment: Canc elled via OM: Order cancelled - Patient discharged Performed By: #### L 500.2500, L100.0100 #### [facility] [address] [place], [address] RDW SD Normal 35.1-43.9 [facility] Comment on above: Result Comment: Canc elled via OM: Order cancelled - Patient discharged Performed By: #### L 500.2500, L100.0100 #### [facility] [address] [place], [address] WBC Normal 4.4-11.0 [facility] Comment on above: Result Comment: Canc elled via OM: Order cancelled - Patient discharged Performed By: #### L 500.2500, L100.0100 #### [facility] [address] [place], [address] Basic Metabolic Profile (BMP )on 02-11-2025 BUN Normal 4-19 [facility] Comment on above: Result Comment: Canc elled via OM: Order cancelled - Patient discharged Performed By: #### L 503.7505, L503.6005, L500.4050, L501.4021, L100.0100 #### [facility] [address] [place], [address] BUN/CRE Normal 10-20 [facility] Comment on above: Result Comment: Canc elled via OM: Order cancelled - Patient discharged Performed By: #### L 503.7505, L503.6005, L500.4050, L501.4021, L100.0100 #### [facility] [address] [place], [address] Calcium Normal 7.6-11.0 [facility] Comment on above: Result Comment: Canc elled via OM: Order cancelled - Patient discharged Performed By: #### L 503.7505, L503.6005, L500.4050, L501.4021, L100.0100 #### [facility] [address] [place], [address] CL Normal 98-108 [facility] Comment on above: Result Comment: Canc elled via OM: Order cancelled - Patient discharged Performed By: #### L 503.7505, L503.6005, L500.4050, L501.4021, L100.0100 #### [facility] [address] [place], [address] CO2 Normal 21.0-32.0 [facility] Comment on above: Result Comment: Canc elled via OM: Order cancelled - Patient discharged Performed By: #### L 503.7505, L503.6005, L500.4050, L501.4021, L100.0100 #### [facility] [address] [place], [address] CREAT,SERUM Normal 0.70-1.20 [facility] Comment on above: Result Comment: Canc elled via OM: Order cancelled - Patient discharged Performed By: #### L 503.7505, L503.6005, L500.4050, L501.4021, L100.0100 #### [facility] [address] [place], [address] eGFR Normal >60 [facility] Comment on above: Result Comment: Canc elled via OM: Order cancelled - Patient discharged Performed By: #### L 503.7505, L503.6005, L500.4050, L501.4021, L100.0100 #### [facility] [address] [place], [address] GAP Normal 5-15 [facility] Comment on above: Result Comment: Canc elled via OM: Order cancelled - Patient discharged Performed By: #### L 503.7505, L503.6005, L500.4050, L501.4021, L100.0100 #### [facility] [address] [place], [address] GLU Normal 70-99 [facility] Comment on above: Result Comment: Canc elled via OM: Order cancelled - Patient discharged Performed By: #### L 503.7505, L503.6005, L500.4050, L501.4021, L100.0100 #### [facility] [address] [place], [address] Potassium Normal 3.3-5.1 [facility] Comment on above: Result Comment: Canc elled via OM: Order cancelled - Patient discharged Performed By: #### L 503.7505, L503.6005, L500.4050, L501.4021, L100.0100 #### [facility] [address] [place], [address] Basic Metabolic Profile (BMP) Normal 133-145 [facility] Comment on above: Result Comment: Canc elled via OM: Order cancelled - Patient discharged Performed By: #### L 503.7505, L503.6005, L500.4050, L501.4021, L100.0100 #### [facility] [address] [place], [address] CBC W/Diff, Automatedon 08-0 -2024 Absolute Neut Normal 2.0-7.7 [facility] Comment on above: Result Comment: Canc elled via OM: Order cancelled - Patient discharged Performed By: #### L 503.7505, L503.6005, L500.4050, L501.4021, L100.0100 #### [facility] [address] [place], [address] HCT Normal 37-47 [facility] Comment on above: Result Comment: Canc elled via OM: Order cancelled - Patient discharged Performed By: #### L 503.7505, L503.6005, L500.4050, L501.4021, L100.0100 #### [facility] [address] [place], [address] HGB Normal 12.0-15.0 [facility] Comment on above: Result Comment: Canc elled via OM: Order cancelled - Patient discharged Performed By: #### L 503.7505, L503.6005, L500.4050, L501.4021, L100.0100 #### [facility] [address] [place], [address] MCH Normal 27.0-32.0 [facility] Comment on above: Result Comment: Canc elled via OM: Order cancelled - Patient discharged Performed By: #### L 503.7505, L503.6005, L500.4050, L501.4021, L100.0100 #### [facility] [address] [place], [address] MCHC Normal 32-36 [facility] Comment on above: Result Comment: Canc elled via OM: Order cancelled - Patient discharged Performed By: #### L 503.7505, L503.6005, L500.4050, L501.4021, L100.0100 #### [facility] [address] [place], [address] MCV Normal 81-99 [facility] Comment on above: Result Comment: Canc elled via OM: Order cancelled - Patient discharged Performed By: #### L 503.7505, L503.6005, L500.4050, L501.4021, L100.0100 #### [facility] [address] [place], [address] NEUT% Normal 47-70 [facility] Comment on above: Result Comment: Canc elled via OM: Order cancelled - Patient discharged Performed By: #### L 503.7505, L503.6005, L500.4050, L501.4021, L100.0100 #### [facility] [address] [place], [address] PLT Normal 150-450 [facility] Comment on above: Result Comment: Canc elled via OM: Order cancelled - Patient discharged Performed By: #### L 503.7505, L503.6005, L500.4050, L501.4021, L100.0100 #### [facility] [address] [place], [address] RBC Normal 4.2-5.4 [facility] Comment on above: Result Comment: Canc elled via OM: Order cancelled - Patient discharged Performed By: #### L 503.7505, L503.6005, L500.4050, L501.4021, L100.0100 #### [facility] [address] [place], [address] RDW CV Normal 11.6-14.6 [facility] Comment on above: Result Comment: Canc elled via OM: Order cancelled - Patient discharged Performed By: #### L 503.7505, L503.6005, L500.4050, L501.4021, L100.0100 #### [facility] [address] [place], [address] RDW SD Normal 35.1-43.9 [facility] Comment on above: Result Comment: Canc elled via OM: Order cancelled - Patient discharged Performed By: #### L 503.7505, L503.6005, L500.4050, L501.4021, L100.0100 #### [facility] [address] [place], [address] WBC Normal 4.4-11.0 [facility] Comment on above: Result Comment: Canc elled via OM: Order cancelled - Patient discharged Performed By: #### L 503.7505, L503.6005, L500.4050, L501.4021, L100.0100 #### [facility] [address] [place], [address] Absolute lymphocyte countOrd ered By: Joanne Vo on 02-10-2025 Lymphocytes Auto (Unsp spec) [#/Vol] 1.39 10*3/uL 0.83-4.51 [facility] Absolute neutrophil countOrd ered By: Joanne Vo on 02-10-2025 Neutrophils (Bld) [#/Vol] 3.8 10*3/uL 2.0-7.7 [facility] Anion gap in Serum or Plasma Ordered By: Joanne Vo on 02-10-2025 Anion gap [Moles/Vol] 13 mmol/L - [facility] Automated lymphocyte count a s percentage of total leukocytesOrdered By: Joanne Vo on 02-10-2025 Lymphocytes/100 WBC Auto (Unsp spec) 21.2 % [facility] BUN/creatinine ratioOrdered By: Joanne Vo on 02-10-2025 Urea nitrogen/Creatinine [Mass ratio] 13.0 mg/mg - [facility] Basic Metabolic Profile (BMP )on 02-10-2025 BUN/CRE 13.0 RATIO Normal 05-01 [facility] Comment on above: Performed By: #### L 503.7505, L503.6005, L500.4050, L501.4021, L100.0100 #### [facility] [address] [place], [address] Calcium [Mass/Vol] 9.2 mg/dL Normal 7.6-11.0 [facility] Comment on above: Performed By: #### L 503.7505, L503.6005, L500.4050, L501.4021, L100.0100 #### [facility] [address] [place], [address] Chloride [Moles/Vol] 99 mmol/L Normal 98-108 [facility] Comment on above: Performed By: #### L 503.7505, L503.6005, L500.4050, L501.4021, L100.0100 #### [facility] [address] [place], [address] CO2 [Moles/Vol] 23.7 mmol/L Normal 21.0-32.0 [facility] Comment on above: Performed By: #### L 503.7505, L503.6005, L500.4050, L501.4021, L100.0100 #### [facility] [address] [place], [address] Creatinine [Mass/Vol] 1.35 mg/dL High 0.70-1.20 [facility] Comment on above: Performed By: #### L 503.7505, L503.6005, L500.4050, L501.4021, L100.0100 #### [facility] [address] [place], [address] ECRCL 34.37 ml/min Low 50-250 [facility] Comment on above: Performed By: #### L 503.7505, L503.6005, L500.4050, L501.4021, L100.0100 #### [facility] [address] [place], [address] GAP 13 Normal 5-15 [facility] Comment on above: Performed By: #### L 503.7505, L503.6005, L500.4050, L501.4021, L100.0100 #### [facility] [address] [place], [address] GFR/1.73 sq M.predicted among non-blacks MDRD (S/P/Bld) [Vol rate/Area] 39 mL/min/{1.73_m2} Low >60 [facility] Comment on above: Result Comment: mL/m in/1.73m2 CKD-EPI Creatinine Equation (2020) Performed By: #### L 503.7505, L503.6005, L500.4050, L501.4021, L100.0100 #### [facility] [address] [place], [address] Glucose [Mass/Vol] 107 mg/dL High 70-99 [facility] Comment on above: Performed By: #### L 503.7505, L503.6005, L500.4050, L501.4021, L100.0100 #### [facility] [address] [place], [address] Potassium [Moles/Vol] 3.4 mmol/L Normal 3.3-5.1 [facility] Comment on above: Performed By: #### L 503.7505, L503.6005, L500.4050, L501.4021, L100.0100 #### [facility] [address] [place], [address] Sodium [Moles/Vol] 136 mmol/L Normal 133-145 [facility] Comment on above: Performed By: #### L 503.7505, L503.6005, L500.4050, L501.4021, L100.0100 #### [facility] [address] [place], [address] Urea nitrogen [Mass/Vol] 18 mg/dL Normal 4-19 [facility] Comment on above: Performed By: #### L 503.7505, L503.6005, L500.4050, L501.4021, L100.0100 #### [facility] [address] [place], [address] Basophil percentageOrdered B y: Joanne Vo on 02-10-2025 Basophils/100 WBC (Bld) 0.6 % 0-1 [facility] Bedside Glucoseon 02-10-2025 FINGERSTICK GLU 164 mg/dL High 74-106 [facility] Comment on above: Result Comment: CRISTIAN GEMENT OF PATIENT CARE PER NURSING PROTOCOL Performed By: #### L 500.2500, L100.0100 #### [facility] [address] [place], [address] FINGERSTICK GLU 116 mg/dL High 74-106 [facility] Comment on above: Result Comment: CRISTIAN GEMENT OF PATIENT CARE PER NURSING PROTOCOL Performed By: #### L 501.080 #### [facility] [address] [place], [address] CBC W/Diff, Automatedon 08-0 1-2024 Absolute Lymph 1.39 X10 3/uL Normal 0.83-4.51 [facility] Comment on above: Performed By: #### L 503.7505, L503.6005, L500.4050, L501.4021, L100.0100 #### [facility] [address] [place], [address] Absolute Neut 3.8 X10 3/uL Normal 2.0-7.7 [facility] Comment on above: Performed By: #### L 503.7505, L503.6005, L500.4050, L501.4021, L100.0100 #### [facility] [address] [place], [address] Basophils/100 WBC (Bld) 0.6 % Normal 0-1 [facility] Comment on above: Performed By: #### L 503.7505, L503.6005, L500.4050, L501.4021, L100.0100 #### [facility] [address] [place], [address] Eosinophils/100 WBC (Bld) 4.0 % Normal 0-5 [facility] Comment on above: Performed By: #### L 503.7505, L503.6005, L500.4050, L501.4021, L100.0100 #### [facility] [address] [place], [address] Erythrocyte distribution width (RBC) [Ratio] 18.9 % High 11.6-14.6 [facility] Comment on above: Performed By: #### L 503.7505, L503.6005, L500.4050, L501.4021, L100.0100 #### [facility] [address] [place], [address] Hematocrit (Bld) [Volume fraction] 32.1 % Low 37-47 [facility] Comment on above: Performed By: #### L 503.7505, L503.6005, L500.4050, L501.4021, L100.0100 #### [facility] [address] [place], [address] Hemoglobin (Bld) [Mass/Vol] 9.5 g/dL Low 12.0-15.0 [facility] Comment on above: Performed By: #### L 503.7505, L503.6005, L500.4050, L501.4021, L100.0100 #### [facility] [address] [place], [address] IG% 0.500 Normal 0.0-0.9 [facility] Comment on above: Result Comment: IG% - Immature Granulocytes (promyelocytes, myelocytes and metamyelocytes) > 1% indicates that a LEFT SHIFT is Present. Performed By: #### L 503.7505, L503.6005, L500.4050, L501.4021, L100.0100 #### [facility] [address] [place], [address] Lymphocytes/100 WBC (Bld) 21.2 % Normal 19-41 [facility] Comment on above: Performed By: #### L 503.7505, L503.6005, L500.4050, L501.4021, L100.0100 #### [facility] [address] [place], [address] MCH (RBC) [Entitic mass] 23.3 pg Low 27.0-32.0 [facility] Comment on above: Performed By: #### L 503.7505, L503.6005, L500.4050, L501.4021, L100.0100 #### [facility] [address] [place], [address] MCHC (RBC) [Mass/Vol] 29.6 g/dL Low 32-36 [facility] Comment on above: Performed By: #### L 503.7505, L503.6005, L500.4050, L501.4021, L100.0100 #### [facility] [address] [place], [address] MCV (RBC) [Entitic vol] 78.9 fL Low 81-99 [facility] Comment on above: Performed By: #### L 503.7505, L503.6005, L500.4050, L501.4021, L100.0100 #### [facility] [address] [place], [address] Monocytes/100 WBC (Bld) 15.7 % High 0-10 [facility] Comment on above: Performed By: #### L 503.7505, L503.6005, L500.4050, L501.4021, L100.0100 #### [facility] [address] [place], [address] Neutrophils/100 WBC (Bld) 58.0 % Normal 47-70 [facility] Comment on above: Performed By: #### L 503.7505, L503.6005, L500.4050, L501.4021, L100.0100 #### [facility] [address] [place], [address] Nucleated RBC (Bld) [#/Vol] 0 10*3/uL Normal 0-5 [facility] Comment on above: Performed By: #### L 503.7505, L503.6005, L500.4050, L501.4021, L100.0100 #### [facility] Laboratory [address] [place], [address] Platelet mean volume (Bld) [Entitic vol] 10.3 fL Normal 6.2-12.0 [facility] Comment on above: Performed By: #### L 503.7505, L503.6005, L500.4050, L501.4021, L100.0100 #### [facility] [address] [place], [address] Platelets (Bld) [#/Vol] 347 10*3/uL Normal 150-450 [facility] Comment on above: Performed By: #### L 503.7505, L503.6005, L500.4050, L501.4021, L100.0100 #### [facility] [address] [place], [address] RBC (Bld) [#/Vol] 4.07 10*6/uL Low 4.2-5.4 [facility] Comment on above: Performed By: #### L 503.7505, L503.6005, L500.4050, L501.4021, L100.0100 #### [facility] [address] [place], [address] RDW SD 52.7 fl High 35.1-43.9 [facility] Comment on above: Performed By: #### L 503.7505, L503.6005, L500.4050, L501.4021, L100.0100 #### [facility] [address] [place], [address] WBC (Bld) [#/Vol] 6.6 10*3/uL Normal 4.4-11.0 [facility] Comment on above: Performed By: #### L 503.7505, L503.6005, L500.4050, L501.4021, L100.0100 #### [facility] [address] [place], [address] Kodi 02-10-2025 DICKN Telephone (FAMPWS) GUDELIA GUPTA ([id number]) 1940 F Date Time Provider Department 02/10/25 VICTOR M ROCHA During your visit today, we recorded the following information about you: Shanti Astorga RN 02/10/2025 10:51 AM Signed Yovana with [facility] calling and asking if PCP would be agreeable to following pt for Home Health Nursing and PT orders? Pt currently at [facility] for CHF Exac and will be discharged to home soon. Please call Yovana back with reply: [phone]. NIYA Macedo Mark D, MD 02/10/2025 1:48 [...] MA - Fully Assessed Reason for Visit: [facility] Call [Other] Prescriptions as of 02/10/2025 - [...] eyes twice daily. 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 Normal [facility] Carbon dioxide, total [Moles /volume] in Central venous bloodOrdered By: Joanne Vo on 02-10-2025 CO2 [Moles/Vol] 23.7 mmol/L 21.0-32.0 [facility] Chloride assayOrdered By: Fifi Vo on 02-10-2025 Chloride [Moles/Vol] 99 mmol/L 98-108 [facility] Discharge Instructionon 08-0 Discharge Instruction [facility] Medical Records Department [address] [place] [address] Instructions for Home/Discharge Instructions 02/10/25 1823 MR#: [id number] Acct: [id number] Name: GUDELIA GUPTA Rep #: [id number] : 1940 84 From: Juice Elizabeth DO [...] Dr. Victor M Rocha MD Signed Normal [facility] Eosinophil percentageOrdered By: Joanne Vo on 02-10-2025 Eosinophils/100 WBC (Bld) 4.0 % 0-5 [facility] Erythrocyte distribution wid th ratioOrdered By: Joanne Vo on 02-10-2025 Erythrocyte distribution width (RBC) [Ratio] 18.9 % High 11.6-14.6 [facility] Erythrocyte distribution wid th standard deviationOrdered By: Joanne Vo on 02-10-2025 Erythrocyte distribution width (RBC) [Ratio] 52.7 fl High 35.1-43.9 [facility] Glomerular filtration rate ( GFR) estimation/1.73 sq m using serum, plasma, or whole bOrdered By: Joanne Vo on 02-10-2025 GFR/1.73 sq M.predicted among non-blacks MDRD (S/P/Bld) [Vol rate/Area] 39 mL/min/{1.73_m2} Low >60 [facility] Comment on above: mL/min/1.73m2 CKD-EP I Creatinine Equation (2020) [facility] By: Joanne Vo on 02-10-2025 Glucose [Mass/Vol] 164 mg/dL High 74-106 [facility] Comment on above: MANAGEMENT OF PATIEN T CARE PER NURSING PROTOCOL Hematocrit Auto (Bld) [Volum e fraction]Ordered By: Joanne Vo on 02-10-2025 Hematocrit (Bld) [Volume fraction] 32.1 % Low 37-47 [facility] Hemoglobin measurementOrdere d By: Joanne Vo on 02-10-2025 Hemoglobin (Bld) [Mass/Vol] 9.5 g/dL Low 12.0-15.0 [facility] Immature granulocytes/100 WB C Auto (Bld)Ordered By: Joanne Vo on 02-10-2025 Immature granulocytes/100 WBC (Bld) 0.500 % 0.0-0.9 [facility] Comment on above: IG% - Immature Granu locytes (promyelocytes, myelocytes and metamyelocytes) > 1% indicates that a LEFT SHIFT is Present. MCV (mean corpuscular volume ) determinationOrdered By: Joanne Vo on 02-10-2025 MCV (RBC) [Entitic vol] 78.9 fL Low 81-99 [facility] MR/CON.PCM.GIon 02-10-2025 MR/CON.PCM.GI [facility] Medical Records Department [address] [place] [address] Consultation - 02/10/25 1819 MR#: [id number] Acct: [id number] Name: GUDELIA GUPTA Rep #: [id number] : 1940 84 From: Brock Leroy DO PCP: Dr. Victor M Rocha MD Status:ADM IN Location: [place] [address] HPI Consult Data Date of Consult: 02/10/25 [...] have narrowing at the base that esophagus. [facility] Medical History Coronary artery disease Iron deficiency anemia History of non-ST elevation myocardial infarction (NSTEMI) (2013) Longstanding persistent atrial fibrillation Essential (primary) hypertension Anxiety Hypothyroidism Hyperlipidemia Secondary pulmonary arterial hypertension Atherosclerosis of coronary artery of platinum heart without angina pectoris Paroxysmal atrial fibrillation [...] change in (more content not included)... Normal [facility] Mean corpuscular hemoglobin (MCH) determinationOrdered By: Joanne Vo on 02-10-2025 MCH (RBC) [Entitic mass] 23.3 pg Low 27.0-32.0 [facility] Mean corpuscular hemoglobin concentration (MCHC) determinationOrdered By: Joanne Vo on 02-10-2025 MCHC (RBC) [Mass/Vol] 29.6 g/dL Low 32-36 [facility] Mean platelet volume determi nationOrdered By: Joanne Vo on 02-10-2025 Platelet mean volume (Bld) [Entitic vol] 10.3 fL 6.2-12.0 [facility] Monocyte percentageOrdered B y: Joanne Vo on 02-10-2025 Monocytes/100 WBC (Bld) 15.7 % High 0-10 [facility] Neutrophil percentageOrdered By: Joanne Vo on 02-10-2025 Neutrophils/100 WBC (Bld) 58.0 % 47-70 [facility] Nucleated red blood cell per centageOrdered By: Joanne Vo on 02-10-2025 Nucleated RBC/100 WBC (Bld) [Ratio] 0 % 0-5 [facility] Phosphoruson 02-10-2025 Phosphate [Mass/Vol] 3.4 mg/dL Normal 2.7-4.5 [facility] Comment on above: Performed By: #### L 503.7505, L503.6005, L500.4050, L501.4021, L100.0100 #### [facility] [address] [place], [address] Platelet countOrdered By: Fifi Vo on 02-10-2025 Platelets (Bld) [#/Vol] 347 10*3/uL 150-450 [facility] Potassium measurement (mass/ volume)Ordered By: Joanne Vo on 02-10-2025 Potassium (Unsp spec) [Mass/Vol] 3.4 mmol/L 3.3-5.1 [facility] RBC Auto (Bld) [#/Vol]Ordere d By: Joanne Vo on 02-10-2025 RBC (Bld) [#/Vol] 4.07 10*6/uL Low 4.2-5.4 [facility] Serum creatinine measurement (mass/volume)Ordered By: Joanne Vo on 02-10-2025 Creatinine [Mass/Vol] 1.35 mg/dL High 0.70-1.20 [facility] Serum glucose measurement (m ass/volume)Ordered By: Joanne Vo on 02-10-2025 Glucose [Mass/Vol] 107 mg/dL High 70-99 [facility] Serum or plasma calcium fernando urement (mass/volume)Ordered By: Joanne Vo on 02-10-2025 Calcium [Mass/Vol] 9.2 mg/dL 7.6-11.0 [facility] Serum or plasma urea nitroge n measurement (mass/volume)Ordered By: Joanne Vo on 02-10-2025 Urea nitrogen [Mass/Vol] 18 mg/dL 4-19 [facility] Sodium levelOrdered By: Joanne Vo on 02-10-2025 Sodium [Moles/Vol] 136 mmol/L 133-145 [facility] White blood cell (WBC) count Ordered By: Joanneroxy Vo on 02-10-2025 WBC (Bld) [#/Vol] 6.6 10*3/uL 4.4-11.0 [facility] Bedside Glucoseon 02-09-2025 FINGERSTICK GLU 164 mg/dL High 74-106 [facility] Comment on above: Result Comment: CRISTIAN GEMENT OF PATIENT CARE PER NURSING PROTOCOL Performed By: #### L 503.7505, L503.6005, L500.4050, L501.4021, L100.0100 #### [facility] [address] [place], [address] FINGERSTICK GLU 108 mg/dL High 74-106 [facility] Comment on above: Result Comment: CRISTIAN GEMENT OF PATIENT CARE PER NURSING PROTOCOL Performed By: #### L 503.7505, L503.6005, L500.4050, L501.4021, L100.0100 #### [facility] [address] [place], [address] FINGERSTICK GLU 116 mg/dL High 74-106 [facility] Comment on above: Result Comment: CRISTIAN GEMENT OF PATIENT CARE PER NURSING PROTOCOL Performed By: #### L 503.7505, L503.6005, L500.4050, L501.4021, L100.0100 #### [facility] [address] [place], [address] FINGERSTICK GLU 88 mg/dL Normal 74-106 [facility] Comment on above: Result Comment: CRISTIAN GEMENT OF PATIENT CARE PER NURSING PROTOCOL Performed By: #### L 501.080 #### [facility] [address] [place], [address] FINGERSTICK GLU 129 mg/dL High 74-106 [facility] Comment on above: Result Comment: CRISTIAN GEMENT OF PATIENT CARE PER NURSING PROTOCOL Performed By: #### L 501.080 #### [facility] [address] [place], [address] Bilirubin, totalOrdered By: Deandre Mtz on 02-09-2025 Bilirubin [Mass/Vol] 0.52 mg/dL 0.00-1.30 [facility] CBC W/Diff, Automatedon 01-12 Absolute Lymph 1.20 X10 3/uL Normal 0.83-4.51 [facility] Comment on above: Performed By: #### L 100.0100 #### [facility] [address] [place], [address] Absolute Neut 5.5 X10 3/uL Normal 2.0-7.7 [facility] Comment on above: Performed By: #### L 100.0100 #### [facility] [address] [place], [address] Basophils/100 WBC (Bld) 0.6 % Normal 0-1 [facility] Comment on above: Performed By: #### L 100.0100 #### [facility] [address] [place], [address] Eosinophils/100 WBC (Bld) 2.3 % Normal 0-5 [facility] Comment on above: Performed By: #### L 100.0100 #### [facility] [address] [place], [address] Erythrocyte distribution width (RBC) [Ratio] 18.6 % High 11.6-14.6 [facility] Comment on above: Performed By: #### L 100.0100 #### [facility] [address] [place], [address] Hematocrit (Bld) [Volume fraction] 28.7 % Low 37-47 [facility] Comment on above: Performed By: #### L 100.0100 #### [facility] [address] [place], [address] Hemoglobin (Bld) [Mass/Vol] 8.6 g/dL Low 12.0-15.0 [facility] Comment on above: Performed By: #### L 100.0100 #### [facility] [address] [place], [address] IG% 0.400 Normal 0.0-0.9 [facility] Comment on above: Result Comment: IG% - Immature Granulocytes (promyelocytes, myelocytes and metamyelocytes) > 1% indicates that a LEFT SHIFT is Present. Performed By: #### L 100.0100 #### [facility] [address] [place], [address] Lymphocytes/100 WBC (Bld) 15.1 % Low 19-41 [facility] Comment on above: Performed By: #### L 100.0100 #### [facility] [address] [place], [address] MCH (RBC) [Entitic mass] 23.2 pg Low 27.0-32.0 [facility] Comment on above: Performed By: #### L 100.0100 #### [facility] [address] [place], [address] MCHC (RBC) [Mass/Vol] 30.0 g/dL Low 32-36 [facility] Comment on above: Performed By: #### L 100.0100 #### [facility] [address] [place], [address] MCV (RBC) [Entitic vol] 77.6 fL Low 81-99 [facility] Comment on above: Performed By: #### L 100.0100 #### [facility] [address] [place], [address] Monocytes/100 WBC (Bld) 12.7 % High 0-10 [facility] Comment on above: Performed By: #### L 100.0100 #### [facility] [address] [place], [address] Neutrophils/100 WBC (Bld) 68.9 % Normal 47-70 [facility] Comment on above: Performed By: #### L 100.0100 #### [facility] [address] [place], [address] Nucleated RBC (Bld) [#/Vol] 0.3 10*3/uL Normal 0-5 [facility] Comment on above: Performed By: #### L 100.0100 #### [facility] [address] [place], [address] Platelet mean volume (Bld) [Entitic vol] 9.5 fL Normal 6.2-12.0 [facility] Comment on above: Performed By: #### L 100.0100 #### [facility] [address] [place], [address] Platelets (Bld) [#/Vol] 322 10*3/uL Normal 150-450 [facility] Comment on above: Performed By: #### L 100.0100 #### [facility] [address] [place], [address] RBC (Bld) [#/Vol] 3.70 10*6/uL Low 4.2-5.4 [facility] Comment on above: Performed By: #### L 100.0100 #### [facility] [address] [place], [address] RDW SD 52.0 fl High 35.1-43.9 [facility] Comment on above: Performed By: #### L 100.0100 #### [facility] [address] [place], [address] WBC (Bld) [#/Vol] 8.0 10*3/uL Normal 4.4-11.0 [facility] Comment on above: Performed By: #### L 100.0100 #### [facility] [address] [place], [address] Calculated very low density lipoprotein (VLDL) cholesterol measurementOrdered By: Deandre Mtz on 02-09-2025 Calculated very low density lipoprotein (VLDL) cholesterol measurement 15 mg/dL 5-40 [facility] Comprehensive Metabolic Prof ilon 02-09-2025 Albumin [Mass/Vol] 3.6 g/dL Normal 3.4-4.8 [facility] Comment on above: Performed By: #### L 503.7505, L503.6005, L500.4050, L501.4021, L100.0100 #### [facility] [address] [place], [address] Albumin/Globulin [Mass ratio] 0.8 {ratio} Low 0.9-2.4 [facility] Comment on above: Performed By: #### L 503.7505, L503.6005, L500.4050, L501.4021, L100.0100 #### [facility] [address] [place], [address] ALK PHOS 131 U/L High 35-104 [facility] Comment on above: Performed By: #### L 503.7505, L503.6005, L500.4050, L501.4021, L100.0100 #### [facility] [address] [place], [address] ALT [Catalytic activity/Vol] 11 U/L Normal <=34 [facility] Comment on above: Performed By: #### L 503.7505, L503.6005, L500.4050, L501.4021, L100.0100 #### [facility] [address] [place], [address] AST [Catalytic activity/Vol] 21 U/L Normal <=31 [facility] Comment on above: Performed By: #### L 503.7505, L503.6005, L500.4050, L501.4021, L100.0100 #### [facility] [address] [place], [address] Bilirubin [Mass/Vol] 0.52 mg/dL Normal 0.00-1.30 [facility] Comment on above: Performed By: #### L 503.7505, L503.6005, L500.4050, L501.4021, L100.0100 #### [facility] [address] [place], [address] BUN/CRE 14.4 RATIO Normal 10-20 [facility] Comment on above: Performed By: #### L 503.7505, L503.6005, L500.4050, L501.4021, L100.0100 #### [facility] [address] [place], [address] Calcium [Mass/Vol] 9.2 mg/dL Normal 7.6-11.0 [facility] Comment on above: Performed By: #### L 503.7505, L503.6005, L500.4050, L501.4021, L100.0100 #### [facility] [address] [place], [address] Chloride [Moles/Vol] 100 mmol/L Normal 98-108 [facility] Comment on above: Performed By: #### L 503.7505, L503.6005, L500.4050, L501.4021, L100.0100 #### [facility] [address] [place], [address] CO2 [Moles/Vol] 23.2 mmol/L Normal 21.0-32.0 [facility] Comment on above: Performed By: #### L 503.7505, L503.6005, L500.4050, L501.4021, L100.0100 #### [facility] [address] [place], [address] Creatinine [Mass/Vol] 1.29 mg/dL High 0.70-1.20 [facility] Comment on above: Performed By: #### L 503.7505, L503.6005, L500.4050, L501.4021, L100.0100 #### [facility] [address] [place], [address] ECRCL 36.61 ml/min Low 50-250 [facility] Comment on above: Performed By: #### L 503.7505, L503.6005, L500.4050, L501.4021, L100.0100 #### [facility] [address] [place], [address] GAP 14 Normal 5-15 [facility] Comment on above: Performed By: #### L 503.7505, L503.6005, L500.4050, L501.4021, L100.0100 #### [facility] [address] [place], [address] GFR/1.73 sq M.predicted among non-blacks MDRD (S/P/Bld) [Vol rate/Area] 41 mL/min/{1.73_m2} Low >60 [facility] Comment on above: Result Comment: mL/m in/1.73m2 CKD-EPI Creatinine Equation (2020) Performed By: #### L 503.7505, L503.6005, L500.4050, L501.4021, L100.0100 #### [facility] [address] [place], [address] Globulin (S) [Mass/Vol] 4.7 g/dL High 2.2-4.2 [facility] Comment on above: Performed By: #### L 503.7505, L503.6005, L500.4050, L501.4021, L100.0100 #### [facility] [address] [place], [address] Glucose [Mass/Vol] 81 mg/dL Normal 70-99 [facility] Comment on above: Performed By: #### L 503.7505, L503.6005, L500.4050, L501.4021, L100.0100 #### [facility] [address] [place], [address] Potassium [Moles/Vol] 3.3 mmol/L Normal 3.3-5.1 [facility] Comment on above: Performed By: #### L 503.7505, L503.6005, L500.4050, L501.4021, L100.0100 #### [facility] [address] [place], [address] Sodium [Moles/Vol] 137 mmol/L Normal 133-145 [facility] Comment on above: Performed By: #### L 503.7505, L503.6005, L500.4050, L501.4021, L100.0100 #### [facility] [address] [place], [address] T PROT 8.3 g/dL Normal 5.9-8.4 [facility] Comment on above: Performed By: #### L 503.7505, L503.6005, L500.4050, L501.4021, L100.0100 #### [facility] [address] [place], [address] Urea nitrogen [Mass/Vol] 19 mg/dL Normal 4-19 [facility] Comment on above: Performed By: #### L 503.7505, L503.6005, L500.4050, L501.4021, L100.0100 #### [facility] [address] [place], [address] Electrocardiogram reportOrde red By: Vinny Root on 02-09-2025 EKG study [facility] [address] [place] [address] 12 Lead EKG 02/08/25 1749 MR#: [id number] Acct: [id number] Name: GUDELIA GUPTA Rep #:[id number] : 1940 84 From: Vinny Root MD Attending Dr: Dr. Joanne Vo MD Status: ADM IN Ordering Dr: Bernardo Judd DO Date: 0 02/08/25 Location: [facility] Sex: F C Admitted: 02/08/25 Test Reason : SOB Blood Pressure : */* mmHG Vent. Rate : 81 BPM Atrial Rate : 75 BPM P-R Int : * ms QRS Dur : 174 ms QT Int : 476 ms P-R-T Axes : * -82 98 degrees QTcB Int : 552 ms Ventricular-paced rhythm Abnormal ECG Confirmed by IVETT MORRISON, VINNY ([id number]), editor trade journal MOISES LEW ([id number]) on 58:41:43 AM Referred By: Confirmed By: VINNY ROOT MD 02/09/25 0841 Date _ Vinny Root MD CC: Dr. Victor M Rocha MD; Dr. Joanne Vo MD; Dr. Bernardo Judd DO ~ Signed [facility] Work Phone: LDL calc ser/plasOrdered By: Deandre Mtz on 02-09-2025 Cholesterol in LDL [Mass/Vol] 47 mg/dL [facility] Comment on above: Skqdduodyn=497-094 m g/dL & Higher Agvs=974 mg/dL or greaterFriedwald Equation for LDL-C Laboratory - Chemistry and C hemistry - challengeOrdered By: Deandre Mtz on 02-09-2025 AST [Catalytic activity/Vol] 21 U/L <32 [facility] Lipid Profileon 02-09-2025 CHOL:HDL 2.89 Normal [facility] Comment on above: Performed By: #### L 503.5951, L503.6005, L500.4050, L501.4021, L100.0100 #### [facility] [address] [place], [address] Cholesterol [Mass/Vol] 95 mg/dL Normal <=200 [facility] Comment on above: Result Comment: Chol esterol level, Desirable <200 mg/dL Borderline high cholesterol 200-239 mg/dL High cholesterol >=240 mg/dL Recommendations of the NCEP Adult Treatment Panel for the following risk-cutoff thresholds for the [place] population. Performed By: #### L 503.7505, L503.6005, L500.4050, L501.4021, L100.0100 #### [facility] [address] [place], [address] Cholesterol in HDL [Mass/Vol] 33 mg/dL Low [facility] Comment on above: Result Comment: Nerissa onal Cholesterol Education Program (NCEP) guidelines: <40 mg/dL: Low HDL-cholesterol (major risk factor for CHD) >= 60 mg/dL: High HDL-cholesterol (negative risk factor for CHD) HDL-cholesterol is affected by a number of factors, e.g. smoking, exercise, hormones, sex and age. Performed By: #### L 503.7505, L503.6005, L500.4050, L501.4021, L100.0100 #### [facility] [address] [place], [address] Cholesterol in LDL [Mass/Vol] 47 mg/dL Normal [facility] Comment on above: Result Comment: Bord cdugau=134-140 mg/dL Higher Zuuh=854 mg/dL or greater Friedwald Equation for LDL-C Performed By: #### L 503.7505, L503.6005, L500.4050, L501.4021, L100.0100 #### [facility] [address] [place], [address] Cholesterol in VLDL [Mass/Vol] 15 mg/dL Normal 5-40 [facility] Comment on above: Performed By: #### L 503.7505, L503.6005, L500.4050, L501.4021, L100.0100 #### [facility] [address] [place], [address] Triglyceride [Mass/Vol] 74 mg/dL Normal [facility] Comment on above: Result Comment: The drugs N-Acetylcysteine and Metamizole may falsely depress this assay. Normal range: <150 mg/dL Borderline High: 150-199 mg/dL High: 200-499 mg/dL Very High: >500 mg/dL Performed By: #### L 503.7505, L503.6005, L500.4050, L501.4021, L100.0100 #### [facility] [address] [place], [place], [address] Phosphoruson 02-09-2025 Phosphate [Mass/Vol] 3.3 mg/dL Normal 2.7-4.5 [facility] Comment on above: Performed By: #### L 503.7505, L503.6005, L500.4050, L501.4021, L100.0100 #### [facility] [address] [place], [place], [address] Screening total cholesterol/ high density lipoprotein (HDL) cholesterol ratioOrdered By: Deandre Mtz on 02-09-2025 Cholesterol.total/Choles terol in HDL [Mass ratio] 2.89 {ratio} [facility] Serum globulin measurementOr dered By: Deandre Mtz on 02-09-2025 Globulin (S) [Mass/Vol] 4.7 g/dL High 2.2-4.2 [facility] Serum or plasma alanine figueroa otransferase (ALT) measurementOrdered By: Deandre Mtz on 02-09-2025 ALT [Catalytic activity/Vol] 11 U/L <35 [facility] Serum or plasma albumin fernando urement (mass/volume)Ordered By: Deandre Mtz on 02-09-2025 Albumin [Mass/Vol] 3.6 g/dL 3.4-4.8 [facility] Serum or plasma albumin/glob ulin mass ratioOrdered By: Deandre Mtz on 02-09-2025 Albumin/Globulin [Mass ratio] 0.8 {ratio} Low 0.9-2.4 [facility] Serum or plasma alkaline janette sphatase measurementOrdered By: Deandre Mtz on 02-09-2025 ALP [Catalytic activity/Vol] 131 U/L High 35-104 [facility] Serum or plasma cholesterol in HDL measurement (mass/volume)Ordered By: Deandre Mtz on 02-09-2025 Cholesterol in HDL [Mass/Vol] 33 mg/dL Low >40 [facility] Comment on above: National Cholesterol Education Program (NCEP) guidelines:<40 mg/dL: Low HDL-cholesterol (major risk factor for CHD)>= 60 mg/dL: High HDL-cholesterol (negative risk factor for CHD)HDL-cholesterol is affected by a number of factors, e.g. smoking, exercise, hormones, sex and age. Serum or plasma cholesterol measurement (mass/volume)Ordered By: Deandre Mtz on 02-09-2025 Cholesterol [Mass/Vol] 95 mg/dL <201 [facility] Comment on above: Cholesterol level, D esirable <200 mg/dLBorderline high cholesterol 200-239 mg/dLHigh cholesterol >=240 mg/dLRecommendations of the NCEP Adult Treatment Panel for the following risk-cutoff thresholds for the [place] population. Total proteinOrdered By: Goran Mtz on 02-09-2025 Protein [Mass/Vol] 8.3 g/dL 5.9-8.4 [facility] Triglycerides measurementOrd ered By: Deandre Mtz on 02-09-2025 Triglyceride [Mass/Vol] 74 mg/dL <199 [facility] Comment on above: The drugs N-Acetylcy steine and Metamizole may falsely depress this assay. Normal range: <150 mg/dLBorderline High: 150-199 mg/dLHigh: 200-499 mg/dLVery High: >500 mg/dL 12 Lead EKGon 02-08-2025 12 Lead EKG [facility] Cardiovascular Services [address] [place] [address] 12 Lead EKG 02/08/25 1749 MR#: [id number] Acct: [id number] Name: GUDELIA GUPTA #: [id number] : 1940 84 From: Vinny Root MD Attending Dr: Dr. Joanne Vo MD Status: AD M IN Ordering Dr: Bernardo Judd DO Date: 02/08/25 Location: [facility] Sex: F C Admitted: 02/08/25 Test Reason : SOB Blood Pressure : */* mmHG Vent. Rate : 81 BPM Atrial Rate : 75 BPM P-R Int : * ms QRS Dur : 174 ms QT Int : 476 ms P-R-T Axes : * -82 98 degrees QTcB Int : 552 ms Ventricular-paced rhythm Abnormal ECG Confirmed by VINNY OROT MD ([id number]), editor trade journal MOISES LEW ([id number]) on 02/09/2025 8:41:43 AM Referred By: Confirmed By: VINNY ROOT MD 02/09/25 0841 Date Vinny Root MD CC: Dr. Victor M Rocha MD; Dr. Joanne Vo MD; Dr. Bernardo Judd DO Signed Normal [facility] Absolute lymphocyte countOrd ered By: Bernardo Judd on 02-08-2025 Lymphocytes Auto (Unsp spec) [#/Vol] 1.24 10*3/uL 0.83-4.51 [facility] Absolute neutrophil countOrd ered By: Bernardo Judd on 02-08-2025 Neutrophils (Bld) [#/Vol] 4.3 10*3/uL 2.0-7.7 [facility] Anion gap in Serum or Plasma Ordered By: Bernardo Judd on 02-08-2025 Anion gap [Moles/Vol] 15 mmol/L 5-15 [facility] Automated lymphocyte count a s percentage of total leukocytesOrdered By: Bernardo Judd on 02-08-2025 Lymphocytes/100 WBC Auto (Unsp spec) 18.5 % Low 19-41 [facility] BUN/creatinine ratioOrdered By: Bernardo Judd on 02-08-2025 Urea nitrogen/Creatinine [Mass ratio] 14.4 mg/mg 10-20 [facility] Basophil percentageOrdered B y: Bernardo Judd on 02-08-2025 Basophils/100 WBC (Bld) 0.6 % 0-1 [facility] Bilirubin, totalOrdered By: Bernardo Judd on 02-08-2025 Bilirubin [Mass/Vol] 0.56 mg/dL 0.00-1.30 [facility] CBC W/Diff, Automatedon 01-12 0-2024 Absolute Lymph 1.24 X10 3/uL Normal 0.83-4.51 [facility] Comment on above: Performed By: #### L 503.7505, L503.6005, L500.4050, L501.4021, L100.0100 #### [facility] [address] [place], [address] Absolute Neut 4.3 X10 3/uL Normal 2.0-7.7 [facility] Comment on above: Performed By: #### L 503.7505, L503.6005, L500.4050, L501.4021, L100.0100 #### [facility] [address] [place], [address] Basophils/100 WBC (Bld) 0.6 % Normal 0-1 [facility] Comment on above: Performed By: #### L 503.7505, L503.6005, L500.4050, L501.4021, L100.0100 #### [facility] [address] [place], [address] Eosinophils/100 WBC (Bld) 2.8 % Normal 0-5 [facility] Comment on above: Performed By: #### L 503.7505, L503.6005, L500.4050, L501.4021, L100.0100 #### [facility] [address] [place], [address] Erythrocyte distribution width (RBC) [Ratio] 18.7 % High 11.6-14.6 [facility] Comment on above: Performed By: #### L 503.7505, L503.6005, L500.4050, L501.4021, L100.0100 #### [facility] [address] [place], [address] Hematocrit (Bld) [Volume fraction] 30.0 % Low 37-47 [facility] Comment on above: Performed By: #### L 503.7505, L503.6005, L500.4050, L501.4021, L100.0100 #### [facility] [address] [place], [address] Hemoglobin (Bld) [Mass/Vol] 8.8 g/dL Low 12.0-15.0 [facility] Comment on above: Performed By: #### L 503.7505, L503.6005, L500.4050, L501.4021, L100.0100 #### [facility] [address] [place], [address] IG% 0.700 Normal 0.0-0.9 [facility] Comment on above: Result Comment: IG% - Immature Granulocytes (promyelocytes, myelocytes and metamyelocytes) > 1% indicates that a LEFT SHIFT is Present. Performed By: #### L 503.7505, L503.6005, L500.4050, L501.4021, L100.0100 #### [facility] [address] [place], [address] Lymphocytes/100 WBC (Bld) 18.5 % Low 19-41 [facility] Comment on above: Performed By: #### L 503.7505, L503.6005, L500.4050, L501.4021, L100.0100 #### [facility] [address] [place], [address] MCH (RBC) [Entitic mass] 23.2 pg Low 27.0-32.0 [facility] Comment on above: Performed By: #### L 503.7505, L503.6005, L500.4050, L501.4021, L100.0100 #### [facility] [address] [place], [address] MCHC (RBC) [Mass/Vol] 29.3 g/dL Low 32-36 [facility] Comment on above: Performed By: #### L 503.7505, L503.6005, L500.4050, L501.4021, L100.0100 #### [facility] [address] [place], [address] MCV (RBC) [Entitic vol] 78.9 fL Low 81-99 [facility] Comment on above: Performed By: #### L 503.7505, L503.6005, L500.4050, L501.4021, L100.0100 #### [facility] [address] [place], [address] Monocytes/100 WBC (Bld) 13.6 % High 0-10 [facility] Comment on above: Performed By: #### L 503.7505, L503.6005, L500.4050, L501.4021, L100.0100 #### [facility] [address] [place], [address] Neutrophils/100 WBC (Bld) 63.8 % Normal 47-70 [facility] Comment on above: Performed By: #### L 503.7505, L503.6005, L500.4050, L501.4021, L100.0100 #### [facility] [address] [place], [address] Nucleated RBC (Bld) [#/Vol] 0.6 10*3/uL Normal 0-5 [facility] Comment on above: Performed By: #### L 503.7505, L503.6005, L500.4050, L501.4021, L100.0100 #### [facility] [address] [place], [address] Platelet mean volume (Bld) [Entitic vol] 10.8 fL Normal 6.2-12.0 [facility] Comment on above: Performed By: #### L 503.7505, L503.6005, L500.4050, L501.4021, L100.0100 #### [facility] [address] [place], [address] Platelets (Bld) [#/Vol] 237 10*3/uL Normal 150-450 [facility] Comment on above: Performed By: #### L 503.7505, L503.6005, L500.4050, L501.4021, L100.0100 #### [facility] [address] [place], [address] RBC (Bld) [#/Vol] 3.80 10*6/uL Low 4.2-5.4 [facility] Comment on above: Performed By: #### L 503.7505, L503.6005, L500.4050, L501.4021, L100.0100 #### [facility] [address] [place], [address] RDW SD 53.7 fl High 35.1-43.9 [facility] Comment on above: Performed By: #### L 503.7505, L503.6005, L500.4050, L501.4021, L100.0100 #### [facility] [address] [place], [address] WBC (Bld) [#/Vol] 6.7 10*3/uL Normal 4.4-11.0 [facility] Comment on above: Performed By: #### L 503.7505, L503.6005, L500.4050, L501.4021, L100.0100 #### [facility] [address] [place], [place], [address] Carbon dioxide, total [Moles /volume] in Central venous bloodOrdered By: Bernardo Judd on 02-08-2025 CO2 [Moles/Vol] 18.9 mmol/L Low 21.0-32.0 [facility] Chest 1 View (Portable)on Chest 1 View (Portable) [facility] Imaging Services [address] [place] [address] Chest 1 View (Portable) MR#: [id number] Acct: [id number] Name: GUDELIA GUPTA Rep #: [id number] : 1940 F 84 From: Martínez Garcia PCP: Dr. Victor M Rocha MD Status: [facility] ER Study: Chest 1 View (Portable) Date of Exam: 02/08/25 Exam# [id number] Ordering Dr: Bernardo Judd DO PROCEDURE: CHEST [...] left base effusion. Moderate cardiomegaly. Reading Location: [facility] CC: Dr. Victor M Rocha MD; Dr. Bernardo Judd DO Criminal Attorney: Signed Normal [facility] Chloride assayOrdered By: Remy Judd on 02-08-2025 Chloride [Moles/Vol] 102 mmol/L 98-108 [facility] Comprehensive Metabolic Prof ilon 02-08-2025 Albumin [Mass/Vol] 3.7 g/dL Normal 3.4-4.8 [facility] Comment on above: Performed By: #### L 503.7505, L503.6005, L500.4050, L501.4021, L100.0100 #### [facility] [address] [place], [address] Albumin/Globulin [Mass ratio] 0.8 {ratio} Low 0.9-2.4 [facility] Comment on above: Performed By: #### L 503.7505, L503.6005, L500.4050, L501.4021, L100.0100 #### [facility] [address] [place], [address] ALK PHOS 140 U/L High 35-104 [facility] Comment on above: Performed By: #### L 503.7505, L503.6005, L500.4050, L501.4021, L100.0100 #### [facility] [address] [place], [address] ALT [Catalytic activity/Vol] 10 U/L Normal <=34 [facility] Comment on above: Performed By: #### L 503.7505, L503.6005, L500.4050, L501.4021, L100.0100 #### [facility] [address] [place], [address] AST [Catalytic activity/Vol] 35 U/L High <=31 [facility] Comment on above: Result Comment: Hemo lysis present, Results??could be affected. ?? Performed By: #### L 503.7505, L503.6005, L500.4050, L501.4021, L100.0100 #### [facility] [address] [place], [address] Bilirubin [Mass/Vol] 0.56 mg/dL Normal 0.00-1.30 [facility] Comment on above: Performed By: #### L 503.7505, L503.6005, L500.4050, L501.4021, L100.0100 #### [facility] [address] [place], [address] BUN/CRE 14.4 RATIO Normal 10-20 [facility] Comment on above: Performed By: #### L 503.7505, L503.6005, L500.4050, L501.4021, L100.0100 #### [facility] [address] [place], [address] Calcium [Mass/Vol] 9.0 mg/dL Normal 7.6-11.0 [facility] Comment on above: Performed By: #### L 503.7505, L503.6005, L500.4050, L501.4021, L100.0100 #### [facility] [address] [place], [address] Chloride [Moles/Vol] 102 mmol/L Normal 98-108 [facility] Comment on above: Performed By: #### L 503.7505, L503.6005, L500.4050, L501.4021, L100.0100 #### [facility] [address] [place], [address] CO2 [Moles/Vol] 18.9 mmol/L Low 21.0-32.0 [facility] Comment on above: Performed By: #### L 503.7505, L503.6005, L500.4050, L501.4021, L100.0100 #### [facility] [address] [place], [address] Creatinine [Mass/Vol] 1.42 mg/dL High 0.70-1.20 [facility] Comment on above: Performed By: #### L 503.7505, L503.6005, L500.4050, L501.4021, L100.0100 #### [facility] [address] [place], [address] ECRCL 33.68 ml/min Low 50-250 [facility] Comment on above: Performed By: #### L 503.7505, L503.6005, L500.4050, L501.4021, L100.0100 #### [facility] [address] [place], [address] GAP 15 Normal 5-15 [facility] Comment on above: Performed By: #### L 503.7505, L503.6005, L500.4050, L501.4021, L100.0100 #### [facility] [address] [place], [address] GFR/1.73 sq M.predicted among non-blacks MDRD (S/P/Bld) [Vol rate/Area] 36 mL/min/{1.73_m2} Low >60 [facility] Comment on above: Result Comment: mL/m in/1.73m2 CKD-EPI Creatinine Equation (2020) Performed By: #### L 503.7505, L503.6005, L500.4050, L501.4021, L100.0100 #### [facility] [address] [place], [address] Globulin (S) [Mass/Vol] 4.8 g/dL High 2.2-4.2 [facility] Comment on above: Performed By: #### L 503.7505, L503.6005, L500.4050, L501.4021, L100.0100 #### [facility] [address] [place], [address] Glucose [Mass/Vol] 93 mg/dL Normal 70-99 [facility] Comment on above: Performed By: #### L 503.7505, L503.6005, L500.4050, L501.4021, L100.0100 #### [facility] [address] [place], [address] Potassium [Moles/Vol] 4.1 mmol/L Normal 3.3-5.1 [facility] Comment on above: Result Comment: Hemo lysis present, Results??could be affected. ?? Performed By: #### L 503.7505, L503.6005, L500.4050, L501.4021, L100.0100 #### [facility] [address] [place], [address] Sodium [Moles/Vol] 135 mmol/L Normal 133-145 [facility] Comment on above: Performed By: #### L 503.7505, L503.6005, L500.4050, L501.4021, L100.0100 #### [facility] [address] [place], [address] T PROT 8.5 g/dL High 5.9-8.4 [facility] Comment on above: Performed By: #### L 503.7505, L503.6005, L500.4050, L501.4021, L100.0100 #### [facility] [address] [place], [address] Urea nitrogen [Mass/Vol] 21 mg/dL High 4-19 [facility] Comment on above: Performed By: #### L 503.7505, L503.6005, L500.4050, L501.4021, L100.0100 #### [facility] [address] [place], [address] Emergency Department Summary on 02-08-2025 Emergency Department Summary [facility] Medical Records Department [address] [place] [address] Emergency Department Summary 02/08/25 MR#: [id number] Acct: [id number] Name: GUDELIA GUPTA Rep #: [id number] : 1940 84 From: Bernardo Judd DO PCP: Dr. Victor M Rocha MD Status:ADM IN Location: [place] [address] HPI History of Present Illness Chief Complaint: [facility] Medical History Coronary artery disease Iron deficiency anemia History of non-ST elevation myocardial infarction (NSTEMI) (2013) Longstanding persistent atrial fibrillation Essential (primary) hypertension Anxiety Hypothyroidism Hyperlipidemia Secondary pulmonary arterial hypertension Atherosclerosis of coronary artery of platinum heart without angina pectoris Paroxysmal atrial fibrillation [...] she c (more content not included)... Normal [facility] Eosinophil percentageOrdered By: Bernardo Judd on 02-08-2025 Eosinophils/100 WBC (Bld) 2.8 % 0-5 [facility] Erythrocyte distribution wid th ratioOrdered By: Bernardo Judd on 02-08-2025 Erythrocyte distribution width (RBC) [Ratio] 18.7 % High 11.6-14.6 [facility] Erythrocyte distribution wid th standard deviationOrdered By: Bernardo Judd on 02-08-2025 Erythrocyte distribution width (RBC) [Ratio] 53.7 fl High 35.1-43.9 [facility] Glomerular filtration rate ( GFR) estimation/1.73 sq m using serum, plasma, or whole bOrdered By: Bernardo Judd on 02-08-2025 GFR/1.73 sq M.predicted among non-blacks MDRD (S/P/Bld) [Vol rate/Area] 36 mL/min/{1.73_m2} Low >60 [facility] Comment on above: mL/min/1.73m2 CKD-EP I Creatinine Equation (2020) H AND P Exam - [place] 02-08-2025 H&P Exam - Hospitalist [facility] Medical Records Department [address] [place] [address] H P Exam - Hospitalist 02/08/252017 MR#: [id number] Acct: [id number] Name: GUDELIA GUPTA Rep #: [id number] : 1940 84 From: Deandre Xiao DO PCP: Dr. Victor M Rocha MD Status:ADM IN Location: [place] [id number] HPI - General General Date of Admission: [...] times daily as needed who presents to [facility] ER complaining of shortness of breath. Ms. [...] is expected to extend beyond 2 midnights. [facility] Medical History Coronary artery disease Iron deficiency anemia History of non-ST elevation myocardial infarction (NSTEMI) (2013) Longstanding persistent atrial fibrillation Essential (primary) hypertension Anxiety Hypothyroidism Hyperlipidemia Secondary pulmonary arterial hypertension Atherosclerosis of coronary artery of platinum heart without angina pectoris Paroxysmal atrial fibrillation [...] PO DANIELLA (more content not included)... Normal [facility] Hematocrit Auto (Bld) [Volum e fraction]Ordered By: Bernardo Judd on 02-08-2025 Hematocrit (Bld) [Volume fraction] 30.0 % Low 37-47 [facility] Hemoglobin A1con 02-08-2025 HbA1c (Bld) [Mass fraction] 6.7 % High <=5.6 [facility] Comment on above: Result Comment: Norm al < 5.7 % Prediabetic 5.7 - 6.4 % Diabetic >or= 6.5 % Please note range changes. Performed By: #### L 503.7505, L503.6005, L500.4050, L501.4021, L100.0100 #### [facility] [address] [place], [address] Hemoglobin A1c percentageOrd ered By: Deandre Mtz on 02-08-2025 HbA1c (Bld) [Mass fraction] 6.7 % High <5.7 [facility] Comment on above: Normal < 5.7 % Predi abetic 5.7 - 6.4 % Diabetic >or= 6.5 % Please note range changes. Hemoglobin measurementOrdere d By: Bernardo Judd on 02-08-2025 Hemoglobin (Bld) [Mass/Vol] 8.8 g/dL Low 12.0-15.0 [facility] Immature granulocytes/100 WB C Auto (Bld)Ordered By: Bernardo Judd on 02-08-2025 Immature granulocytes/100 WBC (Bld) 0.700 % 0.0-0.9 [facility] Comment on above: IG% - Immature Granu locytes (promyelocytes, myelocytes and metamyelocytes) > 1% indicates that a LEFT SHIFT is Present. Influenza virus A and B and SARS-CoV-2 (COVID-19) and Respiratory syncytial virus RNAOrdered By: Bernardo Judd on 02-08-2025 SARS-CoV-2 (COVID-19) RNA CASSIE+probe Ql (Unsp spec) [facility] L501.4021on 02-08-2025 Trop T High Sen 26 ng/L High <=14 [facility] Comment on above: Performed By: #### L 503.7505, L503.6005, L500.4050, L501.4021, L100.0100 #### [facility] [address] [place], [address] Laboratory - Chemistry and C hemistry - challengeOrdered By: Bernardo Judd on 02-08-2025 AST [Catalytic activity/Vol] 35 U/L High <32 [facility] Comment on above: Hemolysis present, R esults could be affected. Lactic Acidon 02-08-2025 Lactate [Moles/Vol] 1.3 mmol/L Normal 0.0-2.0 [facility] Comment on above: Order Comment: Y Performed By: #### L 503.7505, L503.6005, L500.4050, L501.4021, L100.0100 #### [facility] [address] [place], [address] Lactic acid measurementOrder ed By: Bernardo Judd on 02-08-2025 Lactate [Moles/Vol] 1.3 mmol/L 0.0-2.0 [facility] M100.678on 02-08-2025 M100.678 Pending SARS-CoV-2 (COVID 19) Negative INFLUENZA A Negative INFLUENZA B Negative RSV PCR Negative Normal [facility] Comment on above: Performed By: #### L 501.080 #### [facility] [address] [place], [address] MCV (mean corpuscular volume ) determinationOrdered By: Bernardo Judd on 02-08-2025 MCV (RBC) [Entitic vol] 78.9 fL Low 81-99 [facility] Magnesiumon 02-08-2025 Magnesium [Mass/Vol] 2.2 mg/dL Normal 1.5-2.2 [facility] Comment on above: Performed By: #### L 503.7505, L503.6005, L500.4050, L501.4021, L100.0100 #### [facility] [address] [place], [address] Magnesium measurement (mass/ volume)Ordered By: Deandre Mtz on 02-08-2025 Magnesium (Unsp spec) [Mass/Vol] 2.2 mg/dL 1.5-2.2 [facility] Mean corpuscular hemoglobin (MCH) determinationOrdered By: eBrnardo Judd on 02-08-2025 MCH (RBC) [Entitic mass] 23.2 pg Low 27.0-32.0 [facility] Mean corpuscular hemoglobin concentration (MCHC) determinationOrdered By: Bernardo Judd on 02-08-2025 MCHC (RBC) [Mass/Vol] 29.3 g/dL Low 32-36 [facility] Mean platelet volume determi nationOrdered By: Bernardo Judd on 02-08-2025 Platelet mean volume (Bld) [Entitic vol] 10.8 fL 6.2-12.0 [facility] Monocyte percentageOrdered B y: Bernardo Judd on 02-08-2025 Monocytes/100 WBC (Bld) 13.6 % High 0-10 [facility] Natriuretic peptide.B prohor chris N-Terminal [Mass/volume] in Serum or PlasmaOrdered By: Bernardo Judd on 02-08-2025 Natriuretic peptide.B prohormone N-Terminal [Mass/Vol] 1833 pg/mL High <1800 [facility] Comment on above: Heart Failure Unlike ly: < 300 pg/mLHeart Failure Likely< 50 Years: > 450 pg/mL50-75 Years: > 900 pg/mL>75 Years: > 1800 pg/mL Neutrophil percentageOrdered By: Bernardo Judd on 02-08-2025 Neutrophils/100 WBC (Bld) 63.8 % 47-70 [facility] Nucleated red blood cell per centageOrdered By: Bernardo Judd on 02-08-2025 Nucleated RBC/100 WBC (Bld) [Ratio] 0.6 % 0-5 [facility] Platelet countOrdered By: Remy Judd on 02-08-2025 Platelets (Bld) [#/Vol] 237 10*3/uL 150-450 [facility] Potassium measurement (mass/ volume)Ordered By: Bernardo Judd on 02-08-2025 Potassium (Unsp spec) [Mass/Vol] 4.1 mmol/L 3.3-5.1 [facility] Comment on above: Hemolysis present, R esults could be affected. Pro- Brain NATRIURETIC PEPTI Kiesha 02-08-2025 Natriuretic peptide B (Bld) [Mass/Vol] 1833 pg/mL High <=1800 [facility] Comment on above: Result Comment: Hear t Failure Unlikely: < 300 pg/mL Heart Failure Likely < 50 Years: > 450 pg/mL 50-75 Years: > 900 pg/mL >75 Years: > 1800 pg/mL Performed By: #### L 503.7505, L503.6005, L500.4050, L501.4021, L100.0100 #### [facility] [address] [place], [address] RBC Auto (Bld) [#/Vol]Ordere d By: Bernardo Judd on 02-08-2025 RBC (Bld) [#/Vol] 3.80 10*6/uL Low 4.2-5.4 [facility] Serum creatinine measurement (mass/volume)Ordered By: Bernardo Judd on 02-08-2025 Creatinine [Mass/Vol] 1.42 mg/dL High 0.70-1.20 [facility] Serum globulin measurementOr dered By: Bernardo Judd on 02-08-2025 Globulin (S) [Mass/Vol] 4.8 g/dL High 2.2-4.2 [facility] Serum glucose measurement (m ass/volume)Ordered By: Bernardo Judd on 02-08-2025 Glucose [Mass/Vol] 93 mg/dL 70-99 [facility] Serum or plasma alanine figueroa otransferase (ALT) measurementOrdered By: Bernardo Judd on 02-08-2025 ALT [Catalytic activity/Vol] 10 U/L <35 [facility] Serum or plasma albumin fernando urement (mass/volume)Ordered By: Bernardo Judd on 02-08-2025 Albumin [Mass/Vol] 3.7 g/dL 3.4-4.8 [facility] Serum or plasma albumin/glob ulin mass ratioOrdered By: Bernardo Judd on 02-08-2025 Albumin/Globulin [Mass ratio] 0.8 {ratio} Low 0.9-2.4 [facility] Serum or plasma alkaline janette sphatase measurementOrdered By: Bernardo Judd on 02-08-2025 ALP [Catalytic activity/Vol] 140 U/L High 35-104 [facility] Serum or plasma calcium fernando urement (mass/volume)Ordered By: Bernardo Judd on 02-08-2025 Calcium [Mass/Vol] 9.0 mg/dL 7.6-11.0 [facility] Serum or plasma urea nitroge n measurement (mass/volume)Ordered By: Bernardo Judd on 02-08-2025 Urea nitrogen [Mass/Vol] 21 mg/dL High 4-19 [facility] Sodium levelOrdered By: Ronnie Judd on 02-08-2025 Sodium [Moles/Vol] 135 mmol/L 133-145 [facility] TSH DL <= 0.005 mIU/L QnOrde red By: Deandre Mtz on 02-08-2025 TSH Qn 3.080 uIU/mL 0.300-4.200 [facility] Thyroid Stim Hormone (TSH)on 02-08-2025 TSH 3.080 uIU/mL Normal 0.300-4.200 [facility] Comment on above: Performed By: #### L 503.7505, L503.6005, L500.4050, L501.4021, L100.0100 #### [facility] [address] [place], [place], [id number] Total proteinOrdered By: Natalie Judd on 02-08-2025 Protein [Mass/Vol] 8.5 g/dL High 5.9-8.4 [facility] Troponin T HS 2 HRon 025 Trop T High Sen 28 ng/L High <=14 [facility] Comment on above: Performed By: #### L 501.080 #### [facility] [address] [place], [place], [id number] Troponin T HS 4 HRon 025 Trop T High Sen 27 ng/L High <=14 [facility] Comment on above: Performed By: #### L 499.0043 #### [facility] [address] [place], [address] Troponin T.cardiac [Mass/vol ume] in Serum or Plasma by High sensitivity methodOrdered By: Bernardo Judd on 02-08-2025 Troponin T.cardiac High sensitivity method [Mass/Vol] 27 ng/L High <14 [facility] Troponin T.cardiac High sensitivity method [Mass/Vol] 28 ng/L High <14 [facility] Troponin T.cardiac High sensitivity method [Mass/Vol] 26 ng/L High <14 [facility] Urinalysis, Completeon 02-08 BACTERIA Normal None Seen [facility] Comment on above: Order Comment: JOSE CTOR TO SPECIFY Result Comment: BLAZE ENT DISCHARGED, NO SPECIMEN COLLECTED Performed By: #### L 500.2500, L100.0100 #### [facility] [address] [place], [address] BILIRUBIN URINE Normal Negative [facility] Comment on above: Order Comment: COLLE CTOR TO SPECIFY Result Comment: BLAZE ENT DISCHARGED, NO SPECIMEN COLLECTED Performed By: #### L 500.2500, L100.0100 #### [facility] [address] [place], [address] Clarity (U) Normal Clear [facility] Comment on above: Order Comment: JOSE CTOR TO SPECIFY Result Comment: BLAZE ENT DISCHARGED, NO SPECIMEN COLLECTED Performed By: #### L 500.2500, L100.0100 #### [facility] [address] [place], [address] Color (U) Normal Yellow [facility] Comment on above: Order Comment: JOSE CTOR TO SPECIFY Result Comment: BLAZE ENT DISCHARGED, NO SPECIMEN COLLECTED Performed By: #### L 500.2500, L100.0100 #### [facility] [address] [place], [address] EPI,SQUAMOUS Normal 5-10 [facility] Comment on above: Order Comment: COLLE CTOR TO SPECIFY Result Comment: BLAZE ENT DISCHARGED, NO SPECIMEN COLLECTED Performed By: #### L 500.2500, L100.0100 #### [facility] [address] [place], [address] GLUCOSE, UR Normal Normal [facility] Comment on above: Order Comment: JOSE CTOR TO SPECIFY Result Comment: BLAZE ENT DISCHARGED, NO SPECIMEN COLLECTED Performed By: #### L 500.2500, L100.0100 #### [facility] [address] [place], [address] KETONE UR Normal Negative [facility] Comment on above: Order Comment: COLLE CTOR TO SPECIFY Result Comment: BLAZE ENT DISCHARGED, NO SPECIMEN COLLECTED Performed By: #### L 500.2500, L100.0100 #### [facility] [address] [place], [address] LEUK ESTERASE Normal Negative [facility] Comment on above: Order Comment: JOSE CTOR TO SPECIFY Result Comment: BLAZE ENT DISCHARGED, NO SPECIMEN COLLECTED Performed By: #### L 500.2500, L100.0100 #### [facility] [address] [place], [address] Mucus Ql (Urine sed) Normal [facility] Comment on above: Order Comment: JOSE CTOR TO SPECIFY Result Comment: BLAZE ENT DISCHARGED, NO SPECIMEN COLLECTED Performed By: #### L 500.2500, L100.0100 #### [facility] [address] [place], [address] Nitrite Ql (U) Normal Negative [facility] Comment on above: Order Comment: JOSE CTOR TO SPECIFY Result Comment: BLAZE ENT DISCHARGED, NO SPECIMEN COLLECTED Performed By: #### L 500.2500, L100.0100 #### [facility] [address] [place], [address] OCCULT BLOOD-UR Normal Negative [facility] Comment on above: Order Comment: JOSE CTOR TO SPECIFY Result Comment: BLAZE ENT DISCHARGED, NO SPECIMEN COLLECTED Performed By: #### L 500.2500, L100.0100 #### [facility] [address] [place], [address] pH UR Normal 5.0 - 8.0 [facility] Comment on above: Order Comment: JOSE CTOR TO SPECIFY Result Comment: BLAZE ENT DISCHARGED, NO SPECIMEN COLLECTED Performed By: #### L 500.2500, L100.0100 #### [facility] [address] [place], [address] PROT DIPSTX Normal Negative [facility] Comment on above: Order Comment: JOSE CTOR TO SPECIFY Result Comment: BLAZE ENT DISCHARGED, NO SPECIMEN COLLECTED Performed By: #### L 500.2500, L100.0100 #### [facility] [address] [place], [address] RBC Normal 0-5 [facility] Comment on above: Order Comment: JOSE CTOR TO SPECIFY Result Comment: BLAZE ENT DISCHARGED, NO SPECIMEN COLLECTED Performed By: #### L 500.2500, L100.0100 #### [facility] [address] [place], [address] SP.GR. DIPSTX Normal 1.002-1.030 [facility] Comment on above: Order Comment: JOSE CTOR TO SPECIFY Result Comment: BLAZE ENT DISCHARGED, NO SPECIMEN COLLECTED Performed By: #### L 500.2500, L100.0100 #### [facility] [address] [place], [address] UR Preservative Normal [facility] Comment on above: Order Comment: JOSE CTOR TO SPECIFY Result Comment: BLAZE ENT DISCHARGED, NO SPECIMEN COLLECTED Performed By: #### L 500.2500, L100.0100 #### [facility] [address] [place], [address] UROBILI Normal Normal [facility] Comment on above: Order Comment: JOSE CTOR TO SPECIFY Result Comment: BLAZE ENT DISCHARGED, NO SPECIMEN COLLECTED Performed By: #### L 500.2500, L100.0100 #### [facility] [address] [place], [address] WBC Normal 0-5 [facility] Comment on above: Order Comment: COLLE CTOR TO SPECIFY Result Comment: BLAZE ENT DISCHARGED, NO SPECIMEN COLLECTED Performed By: #### L 500.2500, L100.0100 #### [facility] [address] [place], [address] White blood cell (WBC) count Ordered By: Bernardo Judd on 02-08-2025 WBC (Bld) [#/Vol] 6.7 10*3/uL 4.4-11.0 [facility] Bacteria Ur Culton Bacteria identified Cx Nom (U) CULTURE, URINE: Normal urogenital jaspreet: ORGANISM ID: 1 >=100,000 CFU/ml Staphylococcus epidermidis No further workup. Normal [facility] Comment on above: Performed By: #### 6 30-4, 87954-2 ####[facility] LABCLIA [id number] [place] [address] [place] Urinalysis complete panel (U )on 02-07-2025 [place]ER[place] 4507.8 uL High Negative [facility] Comment on above: Order Comment: Speci men Type: URINE SPECIMENOrdering Facility: [facility] Address: [address] [place] [address] Performed By: #### 6 30-, 30414-2 ####[facility] LABCLIA [id number] [place] [id number] [place] Bilirubin Ql (U) Negative Normal Negative [facility] Comment on above: Order Comment: Speci men Type: URINE SPECIMENOrdering Facility: [facility] Address: [address] [place] [address] Performed By: #### 6 30-4, 34549-7 ####[facility] LABCLIA [id number] [address] [address] [place] Clarity (Unsp spec) Clear Normal Clear [facility] Comment on above: Order Comment: Speci men Type: URINE SPECIMENOrdering Facility: [facility] Address: [address] [place] [address] Performed By: #### 6 30-4, 75519-9 ####[facility] LABCLIA [id number] [address] [address] [place] Color (U) Yellow Normal Yellow [facility] Comment on above: Order Comment: Speci men Type: URINE SPECIMENOrdering Facility: [facility] Address: [address] [place] [address] Performed By: #### 6 30-4, 38924-3 ####[facility] LABCLIA [id number] [place] [address] [place] Epithelial cells LM.HPF (Urine sed) [#/Area] None Seen Normal [facility] Comment on above: Order Comment: Speci men Type: URINE SPECIMENOrdering Facility: [facility] Address: [address] [place] [address] Performed By: #### 6 30-4, 90576-4 ####[facility] LABCLIA [id number] [place] [address] [place] Glucose Test strip (U) [Mass/Vol] 2+ Abnormal Negative [facility] Comment on above: Order Comment: Speci men Type: URINE SPECIMENOrdering Facility: [facility] Address: [address] [place] [address] Performed By: #### 6 30-4, 69515-5 ####[facility] LABCLIA [id number] [place] [id number] [place] Hemoglobin Ql (U) Negative Normal Negative [facility] Comment on above: Order Comment: Speci men Type: URINE SPECIMENOrdering Facility: [facility] Address: [address] [place] [address] Performed By: #### 6 30-4, 54000-5 ####[facility] LABCLIA [id number] [address] [place] [address] [place] Hyaline casts (Urine sed) [#/Area] 1-3 /LPF Abnormal 0 /LPF [facility] Comment on above: Order Comment: Speci men Type: URINE SPECIMENOrdering Facility: [facility] Address: [address] [place] [address] Performed By: #### 6 30-4, 30890-4 ####[facility] LABCLIA [id number] [address] [place] [address] [place] Ketones Ql (U) Negative Normal Negative [facility] Comment on above: Order Comment: Speci men Type: URINE SPECIMENOrdering Facility: [facility] Address: [address] [place] [address] Performed By: #### 6 30-4, 62101-0 ####[facility] LABCLIA [id number] [address], [place] [address] [place] Leukocyte esterase Test strip Ql (U) 2+ Abnormal Negative [facility] Comment on above: Order Comment: Speci men Type: URINE SPECIMENOrdering Facility: [facility] Address: [address] [place] [address] Performed By: #### 6 30-4, 56188-7 ####[facility] LABCLIA [id number] [place] [id number] [place] Nitrite Ql (U) Positive Abnormal Negative [facility] Comment on above: Order Comment: Speci men Type: URINE SPECIMENOrdering Facility: [facility] Address: [address] [place] [address] Performed By: #### 6 30-4, 63697-8 ####[facility] LABCLIA [id number] [address] [place] [address] [place] pH (U) 6.5 [pH] Normal 5.0-8.0 [facility] Comment on above: Order Comment: Speci men Type: URINE SPECIMENOrdering Facility: [facility] Address: [address] [place] [address] Performed By: #### 6 30-4, 85385-2 ####[facility] LABIA [id number] [place] [address] [place] Protein (U) [Mass/Vol] Negative Normal Negative [facility] Comment on above: Order Comment: Speci men Type: URINE SPECIMENOrdering Facility: [facility] Address: [address] [place] [address] Performed By: #### 6 30-4, 63369-5 ####[facility] LABIA [id number] [place] [address] [place] RBC LM.HPF (Urine sed) [#/Area] 0-2 /HPF Normal 0-2 /HPF [facility] Comment on above: Order Comment: Speci men Type: URINE SPECIMENOrdering Facility: [facility] Address: [address] [place] [address] Performed By: #### 6 30-4, 76950-7 ####[facility] [id number] [place] [address] [place] Specific gravity (U) [Rel density] 1.010 Normal 1.005-1.030 [facility] Comment on above: Order Comment: Speci men Type: URINE SPECIMENOrdering Facility: [facility] Address: [address] [place] [address] Performed By: #### 6 30-4, 99808-6 ####[facility] [id number] [place] [id number] [place] Urobilinogen Ql (U) 0.2 EU/dL Normal 0.2-1.0 EU/dL [facility] Comment on above: Order Comment: Speci men Type: URINE SPECIMENOrdering Facility: [facility] Address: [address] [place] [address] Performed By: #### 6 30-4, 73440-0 ####[facility] LABCLIA [id number] [address] STATES OF [facility] WBC LM.HPF (Urine sed) [#/Area] 11-20 /HPF Abnormal 0-5 /HPF [facility] Comment on above: Order Comment: Speci men Type: URINE SPECIMENOrdering Facility: [facility] Address: [address] [place] [address] Performed By: #### 6 30-4, 50736-9 ####[facility] LABCLIA [id number] [address] [place] CBC W Auto Differential pane l (Bld)on 02-06-2025 Basophils (Bld) [#/Vol] 0.05 10*3/uL [facility] Basophils/100 WBC (Bld) 0.8 % [facility] Differential cell count method Nom (Bld) Auto [facility] Eosinophils (Bld) [#/Vol] 0.12 10*3/uL [facility] Eosinophils/100 WBC (Bld) 1.9 % [facility] Erythrocyte distribution width (RBC) [Ratio] 18.8 % High 11.5 - 15.0 % [facility] Hematocrit (Bld) [Volume fraction] 30.5 % Low 36.0 - 46.0 % [facility] Hemoglobin (Bld) [Mass/Vol] 8.7 g/dL Low 11.5 - 15.5 g/dL [facility] Immature granulocytes (Bld) [#/Vol] [facility] Immature granulocytes/100 WBC (Bld) 0.3 % [facility] Interpretation and review of laboratory results Abnormal [facility] Lymphocytes (Bld) [#/Vol] 1.01 10*3/uL [facility] Lymphocytes/100 WBC (Bld) 16.2 % [facility] MCH (RBC) [Entitic mass] 22.8 pg Low 26. 0 - 34.0 pg [facility] MCHC (RBC) [Mass/Vol] 28.5 g/dL Low 30.5 - 36.0 g/dL [facility] MCV (RBC) [Entitic vol] 79.8 fL Low 80.0 - 100.0 fL [facility] Monocytes (Bld) [#/Vol] 0.78 10*3/uL [facility] Monocytes/100 WBC (Bld) 12.5 % C [facility] Neutrophils (Bld) [#/Vol] 4.24 10*3/uL [facility] Neutrophils/100 WBC (Bld) 68.3 % [facility] Nucleated RBC (Bld) [#/Vol] NINF [facility] Nucleated RBC/100 WBC (Bld) [Ratio] 0 % /100 WBC [facility] Platelet mean volume (Bld) [Entitic vol] 10.5 fL 9.0 - 12.7 fL [facility] Platelets (Bld) [#/Vol] 318 10*3/uL [facility] RBC (Bld) [#/Vol] 3.82 10*6/uL Low 3.90 - 5.2 0 m/uL [facility] WBC (Bld) [#/Vol] 6.22 10*3/uL [facility] Basophils (Bld) [#/Vol] 0.05 10*3/uL Normal <0.11 [facility] Comment on above: Order Comment: Speci men Type: BLOOD SPECIMENOrdering Facility: [facility] Address: [address] [place] [address] Performed By: #### 5 7021-8 ####[facility] LABIA [id number] [place] [address] [place] Basophils/100 WBC (Bld) 0.8 % Normal [facility] Comment on above: Order Comment: Speci men Type: BLOOD SPECIMENOrdering Facility: [facility] Address: [address] [place] [address] Performed By: #### 5 7021-8 ####[facility] LABIA [id number] [place] [address] [place] Differential cell count method Nom (Bld) Auto Normal [facility] Comment on above: Order Comment: Speci men Type: BLOOD SPECIMENOrdering Facility: [facility] Address: [address] [place] [address] Performed By: #### 5 7021-8 ####[facility] LABCLIA [id number] [address], [place] [address] [place] Eosinophils (Bld) [#/Vol] 0.12 10*3/uL Normal <0.46 [facility] Comment on above: Order Comment: Speci men Type: BLOOD SPECIMENOrdering Facility: [facility] Address: [address] [place] [address] Performed By: #### 5 7021-8 ####[facility] LABCLIA [id number] [address], [place] [address] [place] Eosinophils/100 WBC (Bld) 1.9 % Normal [facility] Comment on above: Order Comment: Speci men Type: BLOOD SPECIMENOrdering Facility: [facility] Address: [address] [place] [address] Performed By: #### 5 7021-8 ####[facility] LABCLIA [id number] [place] [address] [place] Erythrocyte distribution width (RBC) [Ratio] 18.8 % High 11.5-15.0 [facility] Comment on above: Order Comment: Speci men Type: BLOOD SPECIMENOrdering Facility: [facility] Address: [address] [place] [address] Performed By: #### 5 7021-8 ####[facility] LABCLIA [id number] [place] [address] [place] Hematocrit (Bld) [Volume fraction] 30.5 % Low 36.0-46.0 [facility] Comment on above: Order Comment: Speci men Type: BLOOD SPECIMENOrdering Facility: [facility] Address: [address] [place] [address] Performed By: #### 5 7021-8 ####[facility] LABCLIA [id number] [place] [address] [place] Hemoglobin (Bld) [Mass/Vol] 8.7 g/dL Low 11.5-15.5 [facility] Comment on above: Order Comment: Speci men Type: BLOOD SPECIMENOrdering Facility: [facility] Address: [address] [place] [address] Performed By: #### 5 7021-8 ####[facility] LABCLIA [id number] [place] [address] [place] Immature granulocytes (Bld) [#/Vol] 10*3/uL Normal <0.10 [facility] Comment on above: Order Comment: Speci men Type: BLOOD SPECIMENOrdering Facility: [facility] Address: [address] [place] [address] Performed By: #### 5 7021-8 ####[facility] LABCLIA [id number] [place] [address] [place] Immature granulocytes/100 WBC (Bld) 0.3 % Normal [facility] Comment on above: Order Comment: Speci men Type: BLOOD SPECIMENOrdering Facility: [facility] Address: [address] [place] [address] Performed By: #### 5 7021-8 ####[facility] LABCLIA [id number] [place] [address] [place] Lymphocytes (Bld) [#/Vol] 1.01 10*3/uL Normal 1.00-4.00 [facility] Comment on above: Order Comment: Speci men Type: BLOOD SPECIMENOrdering Facility: [facility] Address: [address] [place] [address] Performed By: #### 5 7021-8 ####[facility] LABCLIA [id number] [place] [address] [place] Lymphocytes/100 WBC (Bld) 16.2 % Normal [facility] Comment on above: Order Comment: Speci men Type: BLOOD SPECIMENOrdering Facility: [facility] Address: [address] [place], [place] [address] Performed By: #### 5 7021-8 ####[facility] LABIA [id number] [place] [address] [place] MCH (RBC) [Entitic mass] 22.8 pg Low 26.0-34.0 [facility] Comment on above: Order Comment: Speci men Type: BLOOD SPECIMENOrdering Facility: [facility] Address: [address] [place] [address] Performed By: #### 5 7021-8 ####[facility] LABIA [id number] [place] [address] [place] MCHC (RBC) [Mass/Vol] 28.5 g/dL Low 30.5-36.0 [facility] Comment on above: Order Comment: Speci men Type: BLOOD SPECIMENOrdering Facility: [facility] Address: [address] [place] [address] Performed By: #### 5 7021-8 ####[facility] [id number] [place] [address] [place] MCV (RBC) [Entitic vol] 79.8 fL Low 80.0-100.0 C [facility] Comment on above: Order Comment: Speci men Type: BLOOD SPECIMENOrdering Facility: [facility] Address: [address] [place] [address] Performed By: #### 5 7021-8 ####[facility] LABIA [id number] [place] [address] [place] Monocytes (Bld) [#/Vol] 0.78 10*3/uL Normal <0.87 [facility] Comment on above: Order Comment: Speci men Type: BLOOD SPECIMENOrdering Facility: [facility] Address: [address] [place] [address] Performed By: #### 5 7021-8 ####[facility] LABIA [id number] [address] [address] [place] Monocytes/100 WBC (Bld) 12.5 % Normal [facility] Comment on above: Order Comment: Speci men Type: BLOOD SPECIMENOrdering Facility: [facility] Address: [address] [place] [address] Performed By: #### 5 7021-8 ####[facility] LABCLIA [id number] [place] [address] [place] Neutrophils (Bld) [#/Vol] 4.24 10*3/uL Normal 1.45-7.50 [facility] Comment on above: Order Comment: Speci men Type: BLOOD SPECIMENOrdering Facility: [facility] Address: [address] [place] [address] Performed By: #### 5 7021-8 ####[facility] LABCLIA [id number] [place] [address] [place] Neutrophils/100 WBC (Bld) 68.3 % Normal [facility] Comment on above: Order Comment: Speci men Type: BLOOD SPECIMENOrdering Facility: [facility] Address: [address] [place] [address] Performed By: #### 5 7021-8 ####[facility] LABCLIA [id number] [place] [id number] [place] Nucleated RBC (Bld) [#/Vol] 10*3/uL Normal <0.01 [facility] Comment on above: Order Comment: Speci men Type: BLOOD SPECIMENOrdering Facility: [facility] Address: [address] [place] [address] Performed By: #### 5 7021-8 ####[facility] LABCLIA [id number] [place] [id number] [place] Nucleated RBC/100 WBC (Bld) [Ratio] 0.0 /100 WBC Normal [facility] Comment on above: Order Comment: Speci men Type: BLOOD SPECIMENOrdering Facility: [facility] Address: [address] [place] [address] Performed By: #### 5 7021-8 ####[facility] LABCLIA [id number] [place] [address] [place] Platelet mean volume (Bld) [Entitic vol] 10.5 fL Normal 9.0-12.7 [facility] Comment on above: Order Comment: Speci men Type: BLOOD SPECIMENOrdering Facility: [facility] Address: [address] [place] [address] Performed By: #### 5 7021-8 ####[facility] LABIA [id number] [place] [address] [place] Platelets (Bld) [#/Vol] 318 10*3/uL Normal 150-400 [facility] Comment on above: Order Comment: Speci men Type: BLOOD SPECIMENOrdering Facility: [facility] Address: [address] [place] [address] Performed By: #### 5 7021-8 ####[facility] LABIA [id number] [place] [address] [place] RBC (Bld) [#/Vol] 3.82 10*6/uL Low 3.90-5.20 [facility] Comment on above: Order Comment: Speci men Type: BLOOD SPECIMENOrdering Facility: [facility] Address: [address] [place] [address] Performed By: #### 5 7021-8 ####[facility] LABCLIA [id number] [address] [address] [place] WBC (Bld) [#/Vol] 6.22 10*3/uL Normal 3.70-11.00 [facility] Comment on above: Order Comment: Speci men Type: BLOOD SPECIMENOrdering Facility: [facility] Address: [address] [place] [address] Performed By: #### 5 7021-8 ####[facility] JAMI [id number] IRENERadha [facility] [place] [id number] [place] CNOVon 02-06-2025 CNOV Office Visit (FAMWS) GUDELIA GUPTA ([id number]) 1940 F Date Time Provider Department 02/06/25 [...] has not reported these symptoms to her bush regenerator, Dr. Bueno, or his insurance sales assistant, whom she usually sees. She has [...] intraventricular block - Advised patient to contact bush regenerator Dr. Bueno's office today to report symptoms [...] CMP today, continue with Losartan Carlos House APRN.ACQUISITION ASSOCIATE RTO in 1 month. I spent a total of 51 minutes on the date of the service which included preparing to see the patient, deqf-fi-ysjw patient care, completing clinical documentation, obtaining and/or reviewing separately obtained history, performing a medically appropriate examination, counseling and educating the patient/family/careg iver, and ordering medications, tests, or procedures. This note was partly generated using Dimdim (more content not included)... Normal [facility] Comprehensive metabolic 2000 panelon 02-06-2025 Albumin [Mass/Vol] 4.0 g/dL Normal 3.9-4.9 [facility] Comment on above: Order Comment: Speci men Type: BLOOD SPECIMENOrdering Facility: [facility] Address: [address] [place] [address] Performed By: #### 3 3762-6, LIPEDGAR, 75522-8, 6-3 ####[facility] [id number] [place] [address] [place] ALP [Catalytic activity/Vol] 132 U/L High 34-123 [facility] Comment on above: Order Comment: Speci men Type: BLOOD SPECIMENOrdering Facility: [facility] Address: [address] [place] [address] Performed By: #### 3 3762-6, LIPNF, 07300-5, 6-3 ####[facility] LABCLIA [id number] [place] [address] [place] ALT [Catalytic activity/Vol] 15 U/L Normal 7-38 [facility] Comment on above: Order Comment: Speci men Type: BLOOD SPECIMENOrdering Facility: [facility] Address: [address] [place], [place] [address] Performed By: #### 3 3762-6, LIPNF, 72671-4, 6-3 ####[facility] LABCLIA [id number] [address] [address] [place] Anion gap [Moles/Vol] 11 mmol/L Normal 8-15 [facility] Comment on above: Order Comment: Speci men Type: BLOOD SPECIMENOrdering Facility: [facility] Address: [address] [place], [place] [address] Performed By: #### 3 3762-6, LIPNF, 17937-5, 6-3 ####[facility] LABCLIA [id number] [place] [address] [place] AST [Catalytic activity/Vol] 22 U/L Normal 13-35 [facility] Comment on above: Order Comment: Speci men Type: BLOOD SPECIMENOrdering Facility: [facility] Address: [address] [place] [address] Performed By: #### 3 3762-6, LIPNF, 36004-4, 6-3 ####[facility] LABCLIA [id number] [place] [address] [place] Bilirubin [Mass/Vol] 0.6 mg/dL Normal 0.2-1.3 [facility] Comment on above: Order Comment: Speci men Type: BLOOD SPECIMENOrdering Facility: [facility] Address: [address] [place], [place] [address] Performed By: #### 3 3762-6, LIPNF, 11448-4, 6-3 ####[facility] LABCLIA [id number] [address] [address] [place] Calcium [Mass/Vol] 9.4 mg/dL Normal 8.5-10.2 [facility] Comment on above: Order Comment: Speci men Type: BLOOD SPECIMENOrdering Facility: [facility] Address: [address] [place], [place] [address] Performed By: #### 3 3762-6, LIPNF, 81092-4, 3016-3 ####[facility] LABCLIA [id number] [address] [address] [place] Chloride [Moles/Vol] 101 mmol/L Normal 98-107 [facility] Comment on above: Order Comment: Speci men Type: BLOOD SPECIMENOrdering Facility: [facility] Address: [address] [place], [place] [address] Performed By: #### 3 3762-6, LIPNF, 93984-7, 6-3 ####[facility] LABCLIA [id number] [place] [address] [place] CO2 [Moles/Vol] 21 mmol/L Low 22-30 [facility] Comment on above: Order Comment: Speci men Type: BLOOD SPECIMENOrdering Facility: [facility] Address: [address] [place] [address] Performed By: #### 3 3762-6, LIPNF, 28342-8, 6-3 ####[facility] LABCLIA [id number] [place] [address] [place] Creatinine [Mass/Vol] 1.34 mg/dL High 0.58-0.96 [facility] Comment on above: Order Comment: Speci men Type: BLOOD SPECIMENOrdering Facility: [facility] Address: [address] [place], [place] [address] Performed By: #### 3 3762-6, LIPNF, 19546-5, 3016-3 ####[facility] LABCLIA [id number] [place] [address] [place] eGFRcr SerPlBld CKD-EPI 2021 39 mL/min/1.73m??? Low >=60 [facility] Comment on above: Order Comment: Speci men Type: BLOOD SPECIMENOrdering Facility: [facility] Address: [address] [place] [address] Result Comment: Martha mated Glomerular Filtration Rate [...] GFR. Performed By: #### 3 3762-6, LIPNF, 13582-1, 3015-3 ####[facility] LABCLIA [id number] [place] [address] [place] Glucose [Mass/Vol] 102 mg/dL High 74-99 [facility] Comment on above: Order Comment: Speci men Type: BLOOD SPECIMENOrdering Facility: [facility] Address: [address] [place] [address] Result Comment: The [place] Diabetes Association (ADA) provides guidance for cutoff [...] Standards of Medical Care in Diabetes 2016, [place] Diabetes Association. Diabetes Care. 2016.39(Suppl 1). Performed By: #### 3 3762-6, LIPNF, 73399-9, 3015-3 ####[facility] LABIA [id number] [place] [address] [place] Potassium [Moles/Vol] 4.3 mmol/L Normal 3.7-5.1 [facility] Comment on above: Order Comment: Speci men Type: BLOOD SPECIMENOrdering Facility: [facility] Address: [address] [place] [address] Performed By: #### 3 3762-6, LIPNF, 91090-0, 3016-3 ####[facility] LABCLIA [id number] [place] [address] [place] Protein [Mass/Vol] 8.7 g/dL High 6.3-8.0 [facility] Comment on above: Order Comment: Speci men Type: BLOOD SPECIMENOrdering Facility: [facility] Address: [address] [place] [address] Performed By: #### 3 3762-6, LIPNF, 80887-7, 3016-3 ####[facility] LABIA [id number] [place] [address] [place] Sodium [Moles/Vol] 133 mmol/L Low 136-144 [facility] Comment on above: Order Comment: Speci men Type: BLOOD SPECIMENOrdering Facility: [facility] Address: [address] [place] [address] Performed By: #### 3 3762-6, LIPNF, 29565-0, 3016-3 ####[facility] LABIA [id number] [place] [address] [place] Urea nitrogen [Mass/Vol] 21 mg/dL Normal 7-21 [facility] Comment on above: Order Comment: Speci men Type: BLOOD SPECIMENOrdering Facility: [facility] Address: [address] [place] [address] Performed By: #### 3 3762-6, LIPNF, 12165-8, 3016-3 ####[facility] LABIA [id number] [place] [id number] [place] [id number] 02-06-2025 ECG01 Ventricular Rate : 80 BPM QRS Duration : 170 ms Q-T Interval : 468 ms QTC Calculation(Bazett) : 539 ms Calculated R [place] : -86 degrees Calculated T [place] : 98 degrees Ventricular Pacing with underlying AF MINIMAL VOLTAGE CRITERIA FOR LVH, MAY BE NORMAL VARIANT ( Tayo product ) Confirmed by MD BATRES QARAB ([id number]) on 02/08/2025 11:06:15 AM NAME : GUDELIA GUPTA PID : [id number] : 1940 Gender : Female Race : ORD : Procedure Date : Feb 06 2025 11:23:13 Edit Date : Feb 08 2025 11:06:19 Diagnosis: Ventricular Pacing with underlying AF MINIMAL VOLTAGE CRITERIA FOR LVH, MAY BE NORMAL VARIANT ( Tayo product ) Confirmed by MD BATRES QARAB ([id number]) on 02/08/2025 11:06:15 AM Test Reason : Location : 136 : [facility] Overread By : MD BATRES QARAB Edited By : MD BATRES QARAB Referred By : CARLOS HOUSE Acquired by : ARMANDO GOVEA, Ayanna [facility] HbA1c (Bld)on 02-06-2025 Average glucose Estimated from glycated hemoglobin (Bld) [Mass/Vol] 148 mg/dL Normal [facility] Comment on above: Order Comment: Demetrio lorenzo Type: BLOOD SPECIMENOrdering Facility: [facility] Address: [address] [place] [address] Result Comment: eAG: (Estimated average glucose) is a calculated value from HgbA1c and is packaging sales representative of the average blood glucose level in the last 2-3 month period. Performed By: #### 5 5454-3 ####[facility] LABCLIA [id number] [place] [address] [place] HbA1c (Bld) [Mass fraction] 6.8 % High 4.3-5.6 [facility] Comment on above: Order Comment: Demetrio lorenzo Type: BLOOD SPECIMENOrdering Facility: [facility] Address: [address] [place] [address] Result Comment: [place] Diabetes Association guidelines indicate that patients with HgbA1c in the range 5.7-6.4% are at increased risk for development of diabetes, and intervention by lifestyle modification may be beneficial. HgbA1c greater or equal to 6.5% is considered diagnostic of diabetes. Performed By: #### 5 5454-3 ####[facility] LABCLIA [id number] [place] [id number] [place] LIPID PANEL, NONFASTINGon Cholesterol [Mass/Vol] 95 mg/dL Normal <200 [facility] Comment on above: Order Comment: Speci men Type: BLOOD SPECIMENOrdering Facility: [facility] Address: [address] [place] [address] Result Comment: <200 mg/dL, Desirable 200-239 mg/dL, Borderline high >239 mg/dL, High Performed By: #### 3 3762-6, LIPNF, 66268-9, 6-3 ####[facility] LABCLIA [id number] [place] [address] [place] HDL CHOLESTEROL, NF 32 mg/dL Low >39 [facility] Comment on above: Order Comment: Speci men Type: BLOOD SPECIMENOrdering Facility: [facility] Address: [address] [place] [address] Result Comment: 40-5 9 mg/dL, Acceptable >59 mg/dL, High: Negative risk factor for coronary heart disease <40 mg/dL, Low: Positive risk factor for coronary heart disease Performed By: #### 3 3762-6, LIPNF, 04499-4, 3016-3 ####[facility] LABCLIA [id number] [address] [place] LDL CHOLESTEROL CALCULATED, NF 50 mg/dL Normal <100 [facility] Comment on above: Order Comment: Speci men Type: BLOOD SPECIMENOrdering Facility: [facility] Address: [address] [place] [address] Result Comment: <100 mg/dL, Optimal 100-129 mg/dL, Near optimal/above optimal 130-159 mg/dL, Borderline high 160-189 mg/dL, High >189 mg/dL, Very high Secondary prevention optimal LDL Cholesterol levels are recommended to be <70 mg/dL LDL cholesterol is calculated using the Singh-NIH equation. Performed By: #### 3 3762-6, LIPNF, 49677-1, 3016-3 ####[facility] LABCLIA [id number] [address] [address] [place] LDL/HDL RATIO, NF 1.56 mg/dL Normal <2.54 [facility] Comment on above: Order Comment: Speci men Type: BLOOD SPECIMENOrdering Facility: [facility] Address: [address] [place] [address] Result Comment: Rivka moreno: 1. National Cholesterol Education Program ATP III Guideline At-A-Glance Quick Desk Reference: National Heart, Lung, and Blood [place]. National Institutes of Health. 2001: NIH Publication No. 01-3305. 2. An International Atherosclerosis Society position paper: global recommendations for the management of dyslipidemia: executive summary, Atherosclerosis. 2014: 232(2):410-413. Performed By: #### 3 3762-6, LIPNF, 90080-5, 3015-3 ####[facility] LABCLIA [id number] [address] STATES OF [facility] NON HDL CHOL, NF 63 mg/dL Normal <130 [facility] Comment on above: Order Comment: Speci men Type: BLOOD SPECIMENOrdering Facility: [facility] Address: [address] [place] [address] Result Comment: <130 mg/dL, Optimal 130-159 mg/dL, Near optimal/above optimal 160-189 mg/dL, Borderline high 190-219 mg/dL, High >219 mg/dL, Very high Secondary prevention optimal non HDL Cholesterol levels are recommended to be <100 mg/dL Performed By: #### 3 3762-6, LIPNF, 98629-5, 6-3 ####[facility] LABCLIA [id number] [place] [address] [place] [facility] T CHOL/HDL RATIO NF 2.97 mg/dL Normal <5.10 [facility] Comment on above: Order Comment: Speci men Type: BLOOD SPECIMENOrdering Facility: [facility] Address: [address] [place] [address] Performed By: #### 3 3762-6, LIPNF, 88081-3, 6-3 ####[facility] LABCLIA [id number] [place] [id number] [place] TRIGLYCERIDES, NF 57 mg/dL Normal <150 [facility] Comment on above: Order Comment: Speci men Type: BLOOD SPECIMENOrdering Facility: [facility] Address: [address] [place] [address] Result Comment: <150 mg/dL, Normal 150-199 mg/dL, Borderline high 200-499 mg/dL, High >499 mg/dL, Very high Performed By: #### 3 3762-6, LIPNF, 35206-7, 6-3 ####[facility] LABCLIA [id number] [place] [address] [place] VLDL CHOLESTEROL, NF 8 mg/dL Normal <30 [facility] Comment on above: Order Comment: Speci men Type: BLOOD SPECIMENOrdering Facility: [facility] Address: [address] [place] [address] Performed By: #### 3 3762-6, LIPNF, 13289-2, 6-3 ####[facility] LABCLIA [id number] [address] [place] NT-proBNP SerPl-ncon 02-06 Natriuretic peptide.B prohormone N-Terminal [Mass/Vol] 1379 pg/mL High <450 [facility] Comment on above: Order Comment: Speci men Type: BLOOD SPECIMENOrdering Facility: [facility] Address: [address] [place] [address] Performed By: #### 3 3762-6, LIPNF, 19027-7, 6-3 ####[facility] LABCLIA [id number] [place] [id number] [place] TSH SerPl-aCncon 02-06-2025 TSH Qn 2.240 m[IU]/L Normal 0.270-4.200 [facility] Comment on above: Order Comment: Speci men Type: BLOOD SPECIMENOrdering Facility: [facility] Address: [address] [place] [address] [place] [address] Performed By: #### 3 3762-6, LIPNF, 30437-4, 3016-3 ####[facility] LABCLIA [id number] [facility] [place] [address] [place] XR CHEST 2V [...] of T12. IMPRESSION: No acute radiographic abnormality. Criminal Attorney: ARCHIE Transcribe Date/Time: Feb 06 2025 1:04P Dictated by : CINTHYA PERAZA MD This examination was interpreted and the report reviewed and electronically signed by: CINTHYA PERAZA MD on Feb 06 2025 1:06PM EST [id number] CN Normal [facility] XR Chest PA and Lateralon IMPRESSION: No acute radiographic abnormality. Criminal Attorney: ARCHIE Transcribe Date/Time: Feb 06 2025 1:04P [...] compression of T12. DIVISION OF RADIOLOGY Provider, [facility] - 02/06/2025 * * *Final Report* * [...] T12. IMPRESSION IMPRESSION: No acute radiographic abnormality. Criminal Attorney: ARCHIE Transcribe Date/Time: Feb 06 2025 1:04P Dictated by : CINTHYA PERAZA MD This examination was interpreted and the report reviewed and electronically signed by: CINTHYA PERAZA MD on Feb 06 2025 1:06PM EST [facility] Radiology Study observation (narrative) Osmar garcia [facility] XR Chest PA and LateralOrder ed By: [facility] Provider on 02-06-2025 [facility] Cardiology Visit Reporton Cardiology Visit Report [facility] [address] [place] [address] OFFICE VISIT Date of Service: 11/18/24 MR#: [id number] Acct: [id number] Name: GUDELIA GUPTA Rep #: [id number] : 1940 Provider: LUIS FELIPE Bills Age/Sex: 84/F Location[facility] Status: Signed HPI HPI History of [...] 92 Intake Visit Reasons: 6 M FU [employer] Supervisor Required: No Is patient in pain?: No [...] no idea what medications she is taking [facility] Medical History Coronary artery disease Iron deficiency anemia History of non-ST elevation myocardial infarction (NSTEMI) (2013) Longstanding persistent atrial fibrillation Essential (primary) hypertension Anxiety Hypothyroidism Hyperlipidemia Secondary pulmonary arterial hypertension Atherosclerosis of coronary artery 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 Normal [facility] CBC panel Auto (Bld)on 08-08 Erythrocyte distribution width (RBC) [Ratio] 15.6 % High 11.5-15.0 [facility] Comment on above: Order Comment: Speci men Type: BLOOD SPECIMENOrdering Facility: [facility] Address: [address] [place] [address] Performed By: #### 5 8410-2 ####[facility] LABIA [id number] [place] [address] [place] Hematocrit (Bld) [Volume fraction] 38.7 % Normal 36.0-46.0 [facility] Comment on above: Order Comment: Speci men Type: BLOOD SPECIMENOrdering Facility: [facility] Address: [address] [place] [address] Performed By: #### 5 8410-2 ####[facility] LABIA [id number] [place] [address] [place] Hemoglobin (Bld) [Mass/Vol] 11.8 g/dL Normal 11.5-15.5 [facility] Comment on above: Order Comment: Speci men Type: BLOOD SPECIMENOrdering Facility: [facility] Address: [address] [place] [address] Performed By: #### 5 8410-2 ####[facility] LABIA [id number] [place] [address] [place] MCH (RBC) [Entitic mass] 28.6 pg Normal 26.0-34.0 [facility] Comment on above: Order Comment: Speci men Type: BLOOD SPECIMENOrdering Facility: [facility] Address: [address] [place] [address] Performed By: #### 5 8410-2 ####[facility] LABIA [id number] [address] [address] [place] MCHC (RBC) [Mass/Vol] 30.5 g/dL Normal 30.5-36.0 [facility] Comment on above: Order Comment: Speci men Type: BLOOD SPECIMENOrdering Facility: [facility] Address: [address] [place] [address] Performed By: #### 5 8410-2 ####[facility] LABCLIA [id number] [place] [address] [place] MCV (RBC) [Entitic vol] 93.9 fL Normal 80.0-100.0 [facility] Comment on above: Order Comment: Speci men Type: BLOOD SPECIMENOrdering Facility: [facility] Address: [address] [place] [address] Performed By: #### 5 8410-2 ####[facility] LABIA [id number] [place] [address] [place] Nucleated RBC (Bld) [#/Vol] 10*3/uL Normal <0.01 [facility] Comment on above: Order Comment: Speci men Type: BLOOD SPECIMENOrdering Facility: [facility] Address: [address] [place] [address] Performed By: #### 5 8410-2 ####[facility] LABIA [id number] [place] [address] [place] Platelet mean volume (Bld) [Entitic vol] 10.5 fL Normal 9.0-12.7 [facility] Comment on above: Order Comment: Speci men Type: BLOOD SPECIMENOrdering Facility: [facility] Address: [address] [place] [address] Performed By: #### 5 8410-2 ####[facility] LABCLIA [id number] [place] [address] [place] Platelets (Bld) [#/Vol] 321 10*3/uL Normal 150-400 [facility] Comment on above: Order Comment: Speci men Type: BLOOD SPECIMENOrdering Facility: [facility] Address: [address] [place] [address] Performed By: #### 5 8410-2 ####[facility] LABIA [id number] [place] [address] [place] RBC (Bld) [#/Vol] 4.12 10*6/uL Normal 3.90-5.20 [facility] Comment on above: Order Comment: Speci men Type: BLOOD SPECIMENOrdering Facility: [facility] Address: [address] [place] [address] Performed By: #### 5 8410-2 ####[facility] LABIA [id number] [place] [address] [place] WBC (Bld) [#/Vol] 7.25 10*3/uL Normal 3.70-11.00 [facility] Comment on above: Order Comment: Speci men Type: BLOOD SPECIMENOrdering Facility: [facility] Address: [address] [place] [address] Performed By: #### 5 8410-2 ####[facility] LABIA [id number] [place] [address] [place] Comprehensive metabolic 2000 panelon 08-08-2024 Albumin [Mass/Vol] 4.0 g/dL Normal 3.9-4.9 [facility] Comment on above: Order Comment: Speci men Type: BLOOD SPECIMENOrdering Facility: [facility] Address: [address] [place] [address] Performed By: #### 2 4323-8, 02197-5, 3016-3 ####[facility] LABIA [id number] [place] [address] [place] ALP [Catalytic activity/Vol] 150 U/L High 34-123 [facility] Comment on above: Order Comment: Speci men Type: BLOOD SPECIMENOrdering Facility: [facility] Address: [address] [place] [address] Performed By: #### 2 4323-8, 14399-4, 6-3 ####[facility] LABCLIA [id number] [address] [address] [place] ALT [Catalytic activity/Vol] 11 U/L Normal 7-38 [facility] Comment on above: Order Comment: Speci men Type: BLOOD SPECIMENOrdering Facility: [facility] Address: [address] [place] [address] Performed By: #### 2 4323-8, 36472-8, 3015-3 ####[facility] LABCLIA [id number] [place] [address] [place] Anion gap [Moles/Vol] 13 mmol/L Normal 8-15 [facility] Comment on above: Order Comment: Speci men Type: BLOOD SPECIMENOrdering Facility: [facility] Address: [address] [place] [address] Performed By: #### 2 4323-8, 86502-1, 3015-3 ####[facility] LABCLIA [id number] [place] [address] [place] AST [Catalytic activity/Vol] 18 U/L Normal 13-35 [facility] Comment on above: Order Comment: Speci men Type: BLOOD SPECIMENOrdering Facility: [facility] Address: [address] [place], [place] [address] Performed By: #### 2 4323-8, 23697-3, 3015-3 ####[facility] LABCLIA [id number] [address] [address] [place] Bilirubin [Mass/Vol] 0.6 mg/dL Normal 0.2-1.3 [facility] Comment on above: Order Comment: Speci men Type: BLOOD SPECIMENOrdering Facility: [facility] Address: [address] [place], [place] [address] Performed By: #### 2 4323-8, 16756-9, 3016-3 ####[facility] LABCLIA [id number] [facility] [address] [address] [place] Calcium [Mass/Vol] 9.6 mg/dL Normal 8.5-10.2 [facility] Comment on above: Order Comment: Speci men Type: BLOOD SPECIMENOrdering Facility: [facility] Address: [address] [place] [address] Performed By: #### 2 4323-8, 25974-8, 3015-3 ####[facility] LABCLIA [id number] [address] [address] [place] Chloride [Moles/Vol] 95 mmol/L Low 98-107 [facility] Comment on above: Order Comment: Speci men Type: BLOOD SPECIMENOrdering Facility: [facility] Address: [address] [place] [address] Performed By: #### 2 4323-8, 90114-0, 3015-3 ####[facility] LABCLIA [id number] [place] [id number] [place] CO2 [Moles/Vol] 24 mmol/L Normal 22-30 [facility] Comment on above: Order Comment: Speci men Type: BLOOD SPECIMENOrdering Facility: [facility] Address: [address] [place], [place] [address] Performed By: #### 2 4323-8, 35861-2, 3 ####[facility] LABCLIA [id number] [facility] [address] [address] [place] Creatinine [Mass/Vol] 1.20 mg/dL High 0.58-0.96 [facility] Comment on above: Order Comment: Speci men Type: BLOOD SPECIMENOrdering Facility: [facility] Address: [address] [place], [place] [address] Performed By: #### 2 4323-8, 51645-4, 3015-3 ####[facility] LABCLIA [id number] [address] [place] Creatinine and Glomerular filtration rate.predicted panel (S/P/Bld) 44 mL/min/1.73m??? Low >=60 [facility] Comment on above: Order Comment: Demetrio lorenzo Type: BLOOD SPECIMENOrdering Facility: [facility] Address: [address] [place] [address] Result Comment: Martha mated Glomerular Filtration Rate [...] actual GFR. Performed By: #### 2 4323-8, 72523-7, 3016-3 ####[facility] LABIA [id number] [place] [address] [place] Glucose [Mass/Vol] 99 mg/dL Normal 74-99 [facility] Comment on above: Order Comment: Demetrio lorenzo Type: BLOOD SPECIMENOrdering Facility: [facility] Address: [address] [place] [address] Result Comment: The [place] Diabetes Association (ADA) provides guidance for cutoff [...] Standards of Medical Care in Diabetes 2016, [place] Diabetes Association. Diabetes Care. 2016.39(Suppl 1). Performed By: #### 2 4323-8, 05060-0, 3016-3 ####[facility] LABIA [id number] [place] [id number] [place] Potassium [Moles/Vol] 4.0 mmol/L Normal 3.7-5.1 [facility] Comment on above: Order Comment: Speci men Type: BLOOD SPECIMENOrdering Facility: [facility] Address: [address] [place] [address] Performed By: #### 2 4323-8, 58603-5, 3016-3 ####[facility] LABCLIA [id number] [place] [address] [place] Protein [Mass/Vol] 8.4 g/dL High 6.3-8.0 [facility] Comment on above: Order Comment: Speci men Type: BLOOD SPECIMENOrdering Facility: [facility] Address: [address] [place] [address] Performed By: #### 2 4323-8, 81748-4, 3015-3 ####[facility] LABCLIA [id number] [place] [address] [place] Sodium [Moles/Vol] 132 mmol/L Low 136-144 [facility] Comment on above: Order Comment: Speci men Type: BLOOD SPECIMENOrdering Facility: [facility] Address: [address] [place] [address] Performed By: #### 2 4323-8, 05344-1, 3015-3 ####[facility] LABCLIA [id number] [place] [address] [place] Urea nitrogen [Mass/Vol] 18 mg/dL Normal 7-21 [facility] Comment on above: Order Comment: Speci men Type: BLOOD SPECIMENOrdering Facility: [facility] Address: [address] [place] [address] Performed By: #### 2 4323-8, 83462-8, 6-3 ####[facility] LABCLIA [id number] [place] [id number] [place] HbA1c (Bld)on 08-08-2024 Average glucose Estimated from glycated hemoglobin (Bld) [Mass/Vol] 140 mg/dL Normal [facility] Comment on above: Order Comment: Demetrio lorenzo Type: BLOOD SPECIMENOrdering Facility: [facility] Address: [address] [place] [address] Result Comment: eAG: (Estimated average glucose) is a calculated value from HgbA1c and is packaging sales representative of the average blood glucose level in the last 2-3 month period. Performed By: #### 5 5454-3 ####[facility] LABCLIA [id number] [place] [address] [place] HbA1c (Bld) [Mass fraction] 6.5 % High 4.3-5.6 [facility] Comment on above: Order Comment: Demetrio lorenzo Type: BLOOD SPECIMENOrdering Facility: [facility] Address: [address] [place] [address] Result Comment: Amer [place] Diabetes Association guidelines indicate that patients with HgbA1c in the range 5.7-6.4% are at increased risk for development of diabetes, and intervention by lifestyle modification may be beneficial. HgbA1c greater or equal to 6.5% is considered diagnostic of diabetes. Performed By: #### 5 5454-3 ####[facility] LABCLIA [id number] [place] [address] [place] Lipid 1996 panelon Cholesterol [Mass/Vol] 140 mg/dL Normal <200 [facility] Comment on above: Order Comment: Demetrio lorenzo Type: BLOOD SPECIMENOrdering Facility: [facility] Address: [address] [place] [address] Result Comment: <200 mg/dL, Desirable 200-239 mg/dL, Borderline high >239 mg/dL, High Performed By: #### 2 4323-8, 15411-9, 3016-3 ####[facility] LABCLIA [id number] [place] [address] [place] Cholesterol in HDL [Mass/Vol] 35 mg/dL Low >39 [facility] Comment on above: Order Comment: Speci men Type: BLOOD SPECIMENOrdering Facility: [facility] Address: [address] [place] [address] Result Comment: 40-5 9 mg/dL, Acceptable >59 mg/dL, High: Negative risk factor for coronary heart disease <40 mg/dL, Low: Positive risk factor for coronary heart disease Performed By: #### 2 4323-8, 33846-5, 3016-3 ####[facility] LABCLIA [id number] [place] [address] [place] Cholesterol in LDL [Mass/Vol] 81 mg/dL Normal <100 [facility] Comment on above: Order Comment: Noheliai men Type: BLOOD SPECIMENOrdering Facility: [facility] Address: [address] [place] [address] Result Comment: <100 mg/dL, Optimal 100-129 mg/dL, Near optimal/above optimal 130-159 mg/dL, Borderline high 160-189 mg/dL, High >189 mg/dL, Very high Secondary prevention optimal LDL Cholesterol levels are recommended to be < 70 mg/dL Performed By: #### 2 4323-8, 54425-9, 3015-3 ####[facility] LABCLIA [id number] [address] [place] Cholesterol in LDL/Cholesterol in HDL [Mass ratio] 2.31 {ratio} Normal <2.54 [facility] Comment on above: Order Comment: Noheliai men Type: BLOOD SPECIMENOrdering Facility: [facility] Address: [address] [place] [address] Result Comment: Refe rence: 1. National Cholesterol Education Program ATP III Guideline At-A-Glance Quick Desk Reference: National Heart, Lung, and Blood [place]. National Institutes of Health. 2001: NIH Publication No. 01-3305. 2. An International Atherosclerosis Society position paper: global recommendations for the management of dyslipidemia: executive summary, Atherosclerosis. 2014: 232(2):410-413. Performed By: #### 2 4323-8, 94825-6, 3015-3 ####[facility] LABCLIA [id number] [address] [address] [place] Cholesterol in VLDL [Mass/Vol] 24 mg/dL Normal <30 [facility] Comment on above: Order Comment: Speci men Type: BLOOD SPECIMENOrdering Facility: [facility] Address: [address] [place], [place] [address] Performed By: #### 2 4323-8, 12523-1, 3015-3 ####[facility] LABCLIA [id number] [address] [address] [place] Cholesterol non HDL [Mass/Vol] 105 mg/dL Normal <130 [facility] Comment on above: Order Comment: Speci men Type: BLOOD SPECIMENOrdering Facility: [facility] Address: [address] [place] [address] Result Comment: <130 mg/dL, Optimal 130-159 mg/dL, Near optimal/above optimal 160-189 mg/dL, Borderline high 190-219 mg/dL, High >219 mg/dL, Very high Secondary prevention optimal non HDL Cholesterol levels are recommended to be <100 mg/dL Performed By: #### 2 4323-8, 32834-2, 3015-3 ####[facility] LABCLIA [id number] [address] [address] [place] Cholesterol.total/Choles terol in HDL [Mass ratio] 4.00 {ratio} Normal <5.10 [facility] Comment on above: Order Comment: Speci men Type: BLOOD SPECIMENOrdering Facility: [facility] Address: [address] [place] [address] Performed By: #### 2 4323-8, 81881-3, 3015-3 ####[facility] LABIA [id number] [place] [id number] [place] FASTING TIME 12 hrs Normal [facility] Comment on above: Order Comment: Speci men Type: BLOOD SPECIMENOrdering Facility: [facility] Address: [address] [place] [address] Performed By: #### 2 4323-8, 25334-5, 6-3 ####[facility] LABCLIA [id number] [place] [address] [place] Triglyceride [Mass/Vol] 120 mg/dL Normal <150 [facility] Comment on above: Order Comment: Speci men Type: BLOOD SPECIMENOrdering Facility: [facility] Address: [address] [place] [address] Result Comment: <150 mg/dL, Normal 150-199 mg/dL, Borderline high 200-499 mg/dL, High >499 mg/dL, Very high Performed By: #### 2 4323-8, 00799-4, 3015-3 ####[facility] LABCLIA [id number] [place] [address] [place] TSH SerPl-aCncon 08-08-2024 TSH Qn 3.330 m[IU]/L Normal 0.270-4.200 [facility] Comment on above: Order Comment: Speci men Type: BLOOD SPECIMENOrdering Facility: [facility] Address: [address] [place] [address] Performed By: #### 2 4323-8, 14928-1, 3 ####[facility] LABIA [id number] [address] [place] [facility] ([id number]) 1940 F Date Time Provider Department 05/24/24 VICTOR M ROCHA [facility] During your visit today, we recorded the following information about you: Kandi Woody MA 05/24/2024 1:22 PM Signed Type of letter/form/fax request - Overnight Pulse Ox order Form received from fax on 1 floor and placed on MD desk (Dr. Rocha) for completion. Completed form needs to be faxed to [facility] at [phone]. [facility] requesting PCP sign order to complete an overnight pulse oximetry report on room air for pt. Route to [place] when form completed for processing Kandi Woody MA 05/24/2024 3:01 PM Signed Faxed. Kandi Woody MA Allergies As of Date: 05/24/2024 Noted Allergy Reaction POISON FANY 10/17/2005 SULFA (SULFONAMIDE ANTIBIOTICS) 10/17/2005 4 - Hives Date Reviewed: 04/06/2024 Reviewed by: Jasmina Ramos LPN - Fully Assessed Reason for Visit: Forms [543] Cmt: [employer]-request to do an Overnight pulse [...] eyes twice daily. 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 Advised patient to call her bush regenerator to go over her meds from them [...] eyes twice daily. 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 Normal [facility] CNPNon 05-13-2024 CNPN Telephone (FAMPWS) GUDELIA GUPTA ([id number]) 1940 F Date Time Provider Department 05/13/24 [facility] During your visit today, we recorded the following information about you: Cara Herring MA 05/13/2024 2:33 PM Signed Type of form: Stop Anticoagulant prior to to pain management procedure. [place] [facility]. Pt takes Xarelto daily, asking to be off two days prior to procedure. Form received via fax When form is completed, Fax form to [phone] Form has been forwarded to Physician Desk: [...] Assessed Reason for Visit: Forms [913] Cmt: [place] [facility] Prescriptions as of 2024 [...] eyes twice daily. 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 Normal [facility] Pacemaker Checkon 04-18-2024 Pacemaker Check [facility] [address] [place] [address] Pacemaker Check Date of Service: 04/18/24 110 MR#: [id number] Acct: [id number] Name: GUDELIA GUPTA Rep #: [id number] : 1940 From: Marni Waldron Age/Sex: 83/F Location: [facility] Status: Signed Billing Codes PM Device Codes: 61197 PM Dev Prog Eval, Dual Assessment and Plan Assessment and Plan (1) Paroxysmal atrial fibrillation: Status: Chronic Comment: AV node ablation 03/31/2016 (2) Presence of cardiac pacemaker: Status: Chronic Comment: PPM generator change on 04/11/2024. (3) Sick sinus syndrome: Status: Chronic 04/18/24 1106 Date Marni Guevara Signature: Date (if applicable) CC: Normal [facility] CNOVon 04-06-2024 CNOV Office Visit (FAMPWS) GUDELIA GUPTA ([id number]) 1940 F Date Time Provider Department 04/06/24 [...] ox was 82% in office. Which facility: [facility] Date of visit: 03/25/2024- 4 Diagnosis: Acute [...] Coronary atherosclerosis of unspecified type of vessel, platinum or graft Stent x 2010 Depressive disorder, [...] both eyes twice daily. blood sugar diagnostic (TargetX VERIO TEST STRIPS) test strip TEST BLOOD [...] visit. FAMIL (more content not included)... Normal [facility] 04-05-[address] [facility] Telephone (MRIQ) GUDELIA GUPTA ([id number]) 1940 F Date Time Provider Department 04/05/24 [...] of the radiologist with whom you spoke. [facility] Staff Rad: Neuro [phone] The potential risks of the MRI exam [...] longer wanted, please cancel the order in [facility]. Thank You, MR Imaging Education / MRI [...] rescheduled. (Per Care Everywhere, patient was in [facility] as of 04/11.) Belle Mehta LPN 04/13/2024 [...] eyes twice daily. - blood sugar diagnostic (TargetX VERIO TEST STRIPS) test strip TEST BLOOD [...] general m (more content not included)... Normal [facility] CNOVSPon 04-01-2024 CNOVSP Visit (SP) Office (HEMNELLI) GUDELIA GUPTA ([id number]) 1940 F Date Time Provider Department 04/01/24 [...] since 2014. She was seen by her bush regenerator Dr. Root for increased fatigue and was [...] taking aspirin along with Xarelto. Has h/o ID (PCI with stents), atrial fibrillation (on rivaroxaban), [...] Admitted for CHF. Diuresed. Reviewed electronic record [facility]. Breathing much better. PMH, medications and allergies [...] Review (MPA) Reviewed by Yong Altamirano MD [place] Free, Serum 3.3 - 19.4 mg/L 70.4 [...] were copi (more content not included)... 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 Normal [facility] CNPNon 03-31-2024 CNPN Telephone (INTMWS) GUDELIA GUPTA ([id number]) 1940 F Date Time Provider Department 03/31/24 VICTOR M ROCHA INTMWS During your visit today, we recorded the following information about you: Gisselle Banda LPN 03/31/2024 11:37 AM Signed Phan from [facility] calling: Yesterday HH initiated and started Today 03/31/24- patient wishes to d/c services. PATIENT's is there and is managing O2 well. 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 HH calling with the following: Update: Nursing [...] these medications. Please call Fanny with reply: [phone] Thank you. Allergies As of Date: 03/30/2024 [...] eyes twice daily. 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 Normal [facility] [place] 03-29-[address] [facility] Telephone (FAMPWS) GUDELIA GUPTA ([id number]) 1940 F Date Time Provider Department 03/29/24 VICTOR M ROCHA FAMPWS During your visit today, we recorded the following information about you: Rose Manuel LPN 03/29/2024 1:59 PM Signed Yovana with [facility] calls to report pt was getting discharged today from [facility]. Pt has orders for Nursing, PT, and [...] LPN 03/29/2024 2:01 PM Signed Yovana with [facility] HH notified. Verbalized understanding. 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 [facility]ara Bailey [facility] 03/29/2024 10:57 AM Signed Scheduled with Nitin [...] eyes twice daily. 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 She was seen by her bush regenerator Dr. Root for increased fatigue and was [...] taking aspirin along with Xarelto. Has h/o ID (PCI with stents), atrial fibrillation (on rivaroxaban), [...] Review (MPA) Reviewed by Yong Altamirano MD [place] Free, Serum 3.3 - 19.4 mg/L 70.4 [...] she is hypoxemic. Plan: -To ED at [facility]. -Spoke to Dr. Dodge. Portions of this documentation were copied and pasted from previous office visit notes in order to provide a cohesive (more content not included)... Normal [facility] CNCOon 03-24-2024 CNCO Letter Text Normal [facility] CT WB SKULL TO KNEE WO IVCON on 03-12-2024 CT WB SKULL TO KNEE WO IVCON * * *Final Report* * * DATE OF EXAM: Mar 12 2024 4:08PM [facility] 2096 - CT WB SKULL TO KNEE [...] (more content not included)... Invalid Interpretation Code [facility] UA DIP, URINE (POC)on 2023 BILIRUBIN UA (POCT) Negative Negative [facility] CLARITY UA (POCT) Cloudy [facility] COLOR UA (POCT) Dark yellow [facility] GLUCOSE UA (POCT) 500 mg/dL Abnormal Negative [facility] Hemoglobin Ql (U) Moderate Abnormal Negative [facility] Interpretation and review of laboratory results Abnormal [facility] KETONE UA (POCT) Negative Negative mg/dL [facility] LEUKOCYTES UA (POCT) Large Abnormal Negative [facility] NITRITE UA (POCT) Negative Negative [facility] PH UA (POCT) 6.5 4.5 - 8.0 [facility] Protein Ql (U) 30 mg/dL Abnormal Negative [facility] SPECIFIC GRAVITY UA (POCT) 1.015 1.005 - 1.030 [facility] UROBILINOGEN UA (POCT) 0.2 Olga l E.U./dL [facility] Location:[facility], [address] [place] [address], [place], [place], [id number] [place] [address] POINT OF CARE [facility] FERRITINon 11-18-2023 Ferritin [Mass/Vol] 18.9 ng/mL 14.7 - 2 05.1 ng/mL [facility] Ferritin [Mass/Vol]on 2023 Interpretation and review of laboratory results Normal [facility] Iron and Iron binding capaci ty panelon 11-18-2023 Interpretation and review of laboratory results Abnormal [facility] Iron [Mass/Vol] 19 ug/dL Low 41 - 186 ug/dL [facility] Iron binding capacity [Mass/Vol] 401 ug/dL High 232 - 386 ug/dL [facility] Iron/TIBC [Molar ratio] 4.7 % Low 15.0 - 57.0 % [facility] CBC W Auto Differential pane l (Bld)on 11-17-2023 Basophils (Bld) [#/Vol] 0.04 10*3/uL [facility] Basophils/100 WBC (Bld) 0.5 % C [facility] Differential cell count method Nom (Bld) Auto [facility] Eosinophils (Bld) [#/Vol] 0.15 10*3/uL [facility] Eosinophils/100 WBC (Bld) 1.9 % [facility] Erythrocyte distribution width (RBC) [Ratio] 14.8 % 11.5 - 15.0 % [facility] Hematocrit (Bld) [Volume fraction] 32.0 % Low 36.0 - 46.0 % [facility] Hemoglobin (Bld) [Mass/Vol] 9.5 g/dL Low 11.5 - 15.5 g/dL [facility] Immature granulocytes (Bld) [#/Vol] 0.03 10*3/uL [facility] Immature granulocytes/100 WBC (Bld) 0.4 % [facility] Interpretation and review of laboratory results Abnormal [facility] Lymphocytes (Bld) [#/Vol] 1.49 10*3/uL [facility] Lymphocytes/100 WBC (Bld) 18.8 % [facility] MCH (RBC) [Entitic mass] 24.9 pg Low 26. 0 - 34.0 pg [facility] MCHC (RBC) [Mass/Vol] 29.7 g/dL Low 30.5 - 36.0 g/dL [facility] MCV (RBC) [Entitic vol] 84.0 fL 80.0 - 100.0 fL [facility] Monocytes (Bld) [#/Vol] 0.80 10*3/uL [facility] Monocytes/100 WBC (Bld) 10.1 % [facility] Neutrophils (Bld) [#/Vol] 5.40 10*3/uL [facility] Neutrophils/100 WBC (Bld) 68.3 % [facility] Nucleated RBC (Bld) [#/Vol] [facility] Nucleated RBC/100 WBC (Bld) [Ratio] 0.0 % /100 WBC [facility] Platelet mean volume (Bld) [Entitic vol] 9.2 fL 9.0 - 12.7 fL [facility] Platelets (Bld) [#/Vol] 367 10*3/uL [facility] RBC (Bld) [#/Vol] 3.81 10*6/uL Low 3.90 - 5.2 0 m/uL [facility] WBC (Bld) [#/Vol] 7.91 10*3/uL [facility] Basic metabolic 2000 panelon 06-22-2023 Anion gap [Moles/Vol] 12 mmol/L 9 - 18 mmol/L [facility] Calcium [Mass/Vol] 10.0 mg/dL 8.5 - 10. 2 mg/dL [facility] Chloride [Moles/Vol] 97 mmol/L 97 - 10 5 mmol/L [facility] CO2 [Moles/Vol] 24 mmol/L 22 - 30 mmol/L [facility] Creatinine [Mass/Vol] 1.49 mg/dL High 0.58 - 0.96 mg/dL [facility] Estimated Glomerular Filtration Rate 34 mL/min/1.73m Low >=60 mL/min/1.73m [facility] Glucose [Mass/Vol] 125 mg/dL High 74 - 99 mg/dL [facility] Potassium [Moles/Vol] 4.2 mmol/L 3.7 - 5.1 mmol/L [facility] Sodium [Moles/Vol] 133 mmol/L Low 136 - 144 mmol/L [facility] Urea nitrogen [Mass/Vol] 23 mg/dL High 7 - 21 mg/d L [facility] Basophil percentageOrdered B y: Lizet Bradshaw on 06-15-2023 Basophil percentage >100 SEEN /hpf 0-5 [facility] Comment on above: Microscopic field is filled. Other elements may be obscured. Bilirubin Test strip Ql (U)O rdered By: Lizet Bradshaw on 06-15-2023 Bilirubin Ql (U) Negative Negative [facility] Ketones Test strip Ql (U)Ord ered By: Lizet Bradshaw on 06-15-2023 Ketones Ql (U) Negative Negative [facility] Mucus LM Ql (Urine sed)Order ed By: Lizet Bradshaw on 06-15-2023 Mucus Ql (Urine sed) 0 SEEN /hpf [facility] Nitrite Test strip Ql (U)Ord ered By: Lizet Bradshaw on 06-15-2023 Nitrite Ql (U) Negative Negative [facility] Protein Test strip Ql (U)Ord ered By: Lizet Bradshaw on 06-15-2023 Protein Ql (U) 30 mg/dl Negative [facility] Squamous epithelial cells de tection in urine sediment by light microscopyOrdered By: Lizet Bradshaw on 06-15-2023 Epithelial cells.squamous LM Ql (Urine sed) 0 SEEN /hpf 5-10 [facility] Urine blood detectionOrdered By: Lizet Bradshaw on 06-15-2023 RBC Ql (U) 50 /ul Negative [facility] RBC Ql (U) 0 SEEN /hpf 0-5 [facility] Urine clarityOrdered By: Jcarlos Bradshaw on 06-15-2023 Clarity (U) Cloudy Clear [facility] Urine color determinationOrd ered By: Lizet Bradshaw on 06-15-2023 Color (U) Yellow Yellow [facility] Urine glucose detectionOrder ed By: Lizet Bradshaw on 06-15-2023 Glucose Ql (U) 1000 mg/dl Normal [facility] Urine leukocyte esterase det ection by dipstickOrdered By: Lizet Bradshaw on 06-15-2023 Leukocyte esterase Test strip Ql (U) 500 /ul Negative [facility] Urine pHOrdered By: Shiraz Bradshaw on 06-15-2023 pH (U) 6.5 [pH] 5.0 - 8.0 [facility] Urine sediment bacteria coun t by microscopy (number/high power field)Ordered By: Lizet Bradshaw on 06-15-2023 Bacteria LM.HPF (Urine sed) [#/Area] 4 /[HPF] None Seen [facility] Comment on above: Microscopic field is filled. Other elements may be obscured. Urine specific gravity measu rementOrdered By: Lizet Bradshaw on 06-15-2023 Specific gravity (U) [Rel density] 1.010 1.002-1.030 [facility] Urobilinogen Auto test strip Ql (U)Ordered By: Lizet Bradshaw on 06-15-2023 Urobilinogen Ql (U) Normal mg/dl Normal [facility] UA DIP, URINE (POC)on 2022 BILIRUBIN UA (POCT) Negative Negative [facility] CLARITY UA (POCT) Clear [facility] COLOR UA (POCT) Yellow [facility] GLUCOSE UA (POCT) >=1000 Abnormal Negative mg/dL [facility] Hemoglobin Ql (U) Large Abnormal Negative [facility] KETONE UA (POCT) Negative Negative mg/dL [facility] LEUKOCYTES UA (POCT) Small Abnormal Negative [facility] NITRITE UA (POCT) Positive Abnormal Negative [facility] PH UA (POCT) 6.0 4.5 - 8.0 [facility] Protein Ql (U) 100 mg/dL Abnormal Negative mg/dL [facility] SPECIFIC GRAVITY UA (POCT) 1.010 1.005 - 1.030 [facility] UROBILINOGEN UA (POCT) 0.2 E.U./dL Olga l E.U./dL [facility] Absolute lymphocyte countOrd ered By: Vinny Root on 02-17-2023 Lymphocytes Auto (Unsp spec) [#/Vol] 1.75 10*3/uL 0.83-4.51 [facility] Basophil percentageOrdered B y: Reno Ivett on 02-17-2023 Basophils/100 WBC (Bld) 0.5 % 0-1 [facility] Chloride [Moles/Vol] 102 mmol/L 98-107 [facility] Eosinophils/100 WBC (Bld) 2.5 % 0-5 [facility] Glucose [Mass/Vol] 127 mg/dL 74-106 [facility] Comment on above: Fasting Glucose resu lt greater than or equal to 126 mg/dL suggests DIABETES MELLITUS per A.D.A. criteria. Neutrophils (Bld) [#/Vol] 4.6 10*3/uL 2.0-7.7 [facility] Neutrophils/100 WBC (Bld) 62.5 % 47-70 [facility] Potassium [Moles/Vol] 3.9 mmol/L 3.5-5.1 [facility] Sodium [Moles/Vol] 135 mmol/L 136-145 [facility] WBC (Bld) [#/Vol] 7.3 10*3/uL 4.4-11.0 [facility] Blood erythrocytes count (nu mber/volume)Ordered By: Vinny Root on 02-17-2023 RBC (Bld) [#/Vol] 4.28 10*6/uL 4.2-5.4 [facility] Blood hemoglobin measurement (mass/volume)Ordered By: Vinny Root on 02-17-2023 Hemoglobin (Bld) [Mass/Vol] 12.7 g/dL 12.0-15.0 [facility] Blood lymphocytes/100 leukoc ytesOrdered By: Reno Ivett on 02-17-2023 Lymphocytes/100 WBC (Bld) 23.8 % 19-41 [facility] Blood monocytes/100 leukocyt esOrdered By: Vinny Ivett on 02-17-2023 Monocytes/100 WBC (Bld) 10.4 % 0-10 [facility] Blood platelet mean volumeOr dered By: Vinny Ivett on 02-17-2023 Platelet mean volume (Bld) [Entitic vol] 10.3 fL 6.2-12.0 [facility] Determination of erythrocyte mean corpuscular volume (MCV)Ordered By: Vinny Root on 02-17-2023 MCV (RBC) [Entitic vol] 95.6 fL 81-99 [facility] Hematocrit Auto (Bld) [Volum e fraction]Ordered By: Vinny Root on 02-17-2023 Hematocrit (Bld) [Volume fraction] 40.9 % 37-47 [facility] Laboratory - Chemistry and C hemistry - challengeOrdered By: [facility] on 02-17-2023 CO2 [Moles/Vol] 29.0 mmol/L 21.0-32.0 [facility] Urea nitrogen/Creatinine [Mass ratio] 13.1 mg/mg 10-20 [facility] - Hematology and Cell countsOrdered By: Vinny Ivett on 02-17-2023 Erythrocyte distribution width (RBC) [Entitic vol] 47.8 fL 35.1-43.9 [facility] Erythrocyte distribution width (RBC) [Ratio] 13.6 % 11.6-14.6 [facility] Immature granulocytes/100 WBC (Bld) 0.300 % 0.0-0.9 [facility] Comment on above: IG% - Immature Granu locytes (promyelocytes, myelocytes and metamyelocytes) > 1% indicates that a LEFT SHIFT is Present. MCH (RBC) [Entitic mass] 29.7 pg 27.0-32.0 [facility] Nucleated RBC/100 WBC (Bld) [Ratio] 0 % 0-5 [facility] MCHC Auto (RBC) [Mass/Vol]Or dered By: Vinny Root on 02-17-2023 MCHC (RBC) [Mass/Vol] 31.1 g/dL 32-36 [facility] No Panel InformationOrdered By: Vinny Root on 02-17-2023 Estimated GFR (MDRD) Amer 47 mL/min >60 [facility] Comment on above: GFR Calc Estimated GFR (MDRD) Non-Af Amer 39 mL/min >60 [facility] Comment on above: Non- GFR Calc Thyroid Stimulating Hormone (TSH) 2.83 uIU/mL 0.358-3.74 [facility] Platelets bldOrdered By: Yinka Root on 02-17-2023 Platelets (Bld) [#/Vol] 298 10*3/uL 150-450 [facility] Serum or plasma calcium fernando urement (mass/volume)Ordered By: Vinny Ivett on 02-17-2023 Calcium [Mass/Vol] 9.7 mg/dL 8.5-10.1 [facility] Serum or plasma creatinine m easurement (mass/volume)Ordered By: Vinny Root on 02-17-2023 Creatinine [Mass/Vol] 1.37 mg/dL 0.55-1.02 [facility] Comment on above: The validity of the calculated GFR & GFRAA in patients over 70 years has not been determined. Clinical correlation is essential. Serum or plasma urea nitroge n measurement (mass/volume)Ordered By: Vinny Ivett on 02-17-2023 Urea nitrogen [Mass/Vol] 18 mg/dL 7-18 [facility] Thin prep Papanicolaou smear with manual screeningOrdered By: Vinny Ivett on 02-17-2023 Thin prep Papanicolaou smear with manual screening 4 5-15 [facility] Absolute lymphocyte countOrd ered By: Elizabet Viramontes on 12-04-2022 Lymphocytes Auto (Unsp spec) [#/Vol] 1.13 10*3/uL 0.83-4.51 [facility] Basophil percentageOrdered B y: Elizabet Viramontes on 12-04-2022 Basophil percentage >100 SEEN /hpf 0-5 [facility] Basophils/100 WBC (Bld) 0.4 % 0-1 [facility] Bilirubin [Mass/Vol] 0.60 mg/dL 0.20-1.00 [facility] Comment on above: For patients on eltr ombopag therapy, use of Dimension [place] TBIL is not recommended. Chloride [Moles/Vol] 101 mmol/L 98-107 [facility] Eosinophils/100 WBC (Bld) 0.8 % 0-5 [facility] Glucose [Mass/Vol] 163 mg/dL 74-106 [facility] Comment on above: Fasting Glucose resu lt greater than or equal to 126 mg/dL suggests DIABETES MELLITUS per A.D.A. criteria. Neutrophils (Bld) [#/Vol] 15.3 10*3/uL 2.0-7.7 [facility] Neutrophils/100 WBC (Bld) 89.3 % 47-70 [facility] Potassium [Moles/Vol] 3.0 mmol/L 3.5-5.1 [facility] Protein [Mass/Vol] 9.1 g/dL 6.4-8.2 [facility] Sodium [Moles/Vol] 134 mmol/L 136-145 [facility] WBC (Bld) [#/Vol] 17.1 10*3/uL 4.4-11.0 [facility] Bilirubin Test strip Ql (U)O rdered By: Elizabet Viramontes on 12-04-2022 Bilirubin Ql (U) Negative Negative [facility] Blood erythrocytes count (nu mber/volume)Ordered By: Elizabet Viramontes on 12-04-2022 RBC (Bld) [#/Vol] 4.13 10*6/uL 4.2-5.4 [facility] Blood hemoglobin measurement (mass/volume)Ordered By: Elizabet Viramontes on 12-04-2022 Hemoglobin (Bld) [Mass/Vol] 13.2 g/dL 12.0-15.0 [facility] Blood lymphocytes/100 leukoc ytesOrdered By: Elizabet Viramontes on 12-04-2022 Lymphocytes/100 WBC (Bld) 6.6 % 19-41 [facility] Blood monocytes/100 leukocyt esOrdered By: Elizabet Viramontes on 12-04-2022 Monocytes/100 WBC (Bld) 2.3 % 0-10 [facility] Blood platelet mean volumeOr dered By: Elizabet Viramontes on 12-04-2022 Platelet mean volume (Bld) [Entitic vol] 10.4 fL 6.2-12.0 [facility] Culture, urineOrdered By: Luis Felipe Viramontes on 12-04-2022 Bacteria identified Cx Nom (U) Streptococcus gallolyticus marcy [facility] Determination of erythrocyte mean corpuscular volume (MCV)Ordered By: Elizabet Viramontes on 12-04-2022 MCV (RBC) [Entitic vol] 97.3 fL 81-99 [facility] Hematocrit Auto (Bld) [Volum e fraction]Ordered By: Elizabet Viramontes on 12-04-2022 Hematocrit (Bld) [Volume fraction] 40.2 % 37-47 [facility] INR in Blood by Coagulation assayOrdered By: Elizabet Viramontes on 12-04-2022 INR Coag (Bld) [Relative time] 2.2 {INR} [facility] Influenza virus A and B and SARS-CoV-2 (COVID-19) Ag panel - Upper respiratory specimOrdered By: Elizabet Viramontes on 12-04-2022 SARS-CoV-2 (COVID-19) RNA CASSIE+probe Ql (Resp) [facility] Ketones Test strip Ql (U)Ord ered By: Elizabet Viramontes on 12-04-2022 Ketones Ql (U) Negative Negative [facility] Laboratory - Chemistry and C hemistry - challengeOrdered By: Elizabet Viramontes on 12-04-2022 ALP [Catalytic activity/Vol] 123 U/L 45-117 [facility] ALT [Catalytic activity/Vol] 18 U/L 13-56 [facility] CO2 [Moles/Vol] 25.0 mmol/L 21.0-32.0 [facility] Globulin (S) [Mass/Vol] 5.3 g/dL 2.2-4.2 [facility] Lipase [Catalytic activity/Vol] 54 U/L 13-75 [facility] Comment on above: Please note:LIPASE r evised reference range effective 22. New Lipase methodology. Expected to produce lower values than the previous assay method. NEW Reference Range: 13 - 75 U/L Natriuretic peptide B (Bld) [Mass/Vol] 236.7 pg/mL 0-100 [facility] Urea nitrogen/Creatinine [Mass ratio] 15.5 mg/mg 10-20 [facility] Laboratory - CoagulationOrde red By: Elizabet Viramontes on 12-04-2022 PT Coag (PPP) [Time] 24.6 s 11.7-14.9 [facility] Laboratory - Hematology and Cell countsOrdered By: Elizabet Viramontes on 12-04-2022 Erythrocyte distribution width (RBC) [Entitic vol] 47.1 fL 35.1-43.9 [facility] Erythrocyte distribution width (RBC) [Ratio] 13.2 % 11.6-14.6 [facility] Immature granulocytes/100 WBC (Bld) 0.600 % 0.0-0.9 [facility] Comment on above: IG% - Immature Granu locytes (promyelocytes, myelocytes and metamyelocytes) > 1% indicates that a LEFT SHIFT is Present. MCH (RBC) [Entitic mass] 32.0 pg 27.0-32.0 [facility] Nucleated RBC/100 WBC (Bld) [Ratio] 0 % 0-5 [facility] MCHC Auto (RBC) [Mass/Vol]Or dered By: Elizabet Viramontes on 12-04-2022 MCHC (RBC) [Mass/Vol] 32.8 g/dL 32-36 [facility] Mucus LM Ql (Urine sed)Order ed By: Elizabet Viramontes on 12-04-2022 Mucus Ql (Urine sed) 0 SEEN /hpf [facility] Nitrite Test strip Ql (U)Ord ered By: Elizabet Viramontes on 12-04-2022 Nitrite Ql (U) Negative Negative [facility] No Panel InformationOrdered By: Elizabet Viramontes on 12-04-2022 Troponin I High Sensitivity 10 pg/mL 3.0-54.0 [facility] Comment on above: Please Note: New Emily t Units and Gender Specific Reference Ranges. For more information see Policy Stat Procedure [place] High Sensitivity Troponin (TNIH) and attachments. Estimated Creatinine Clearance Calc 25.74 ml/min [facility] Estimated GFR (MDRD) Amer 41 mL/min >60 [facility] Comment on above: GFR Calc Estimated GFR (MDRD) Non-Af Amer 34 mL/min >60 [facility] Comment on above: Non- GFR Calc Platelets bldOrdered By: Tess Viramontes on 12-04-2022 Platelets (Bld) [#/Vol] 302 10*3/uL 150-450 [facility] Protein Test strip Ql (U)Ord ered By: Elizabet Viramontes on 12-04-2022 Protein Ql (U) 30 mg/dl Negative [facility] Serum or plasma albumin fernando urement (mass/volume)Ordered By: Elizabet Viramontes on 12-04-2022 Albumin [Mass/Vol] 3.8 g/dL 3.2-5.0 [facility] Serum or plasma albumin/glob ulin mass ratioOrdered By: Elizabet Viramontes on 12-04-2022 Albumin/Globulin [Mass ratio] 0.7 {ratio} 0.9-2.4 [facility] Serum or plasma calcium fernando urement (mass/volume)Ordered By: Elizabet Viramontes on 12-04-2022 Calcium [Mass/Vol] 9.8 mg/dL 8.5-10.1 [facility] Serum or plasma creatinine m easurement (mass/volume)Ordered By: Elizabet Viramontes on 12-04-2022 Creatinine [Mass/Vol] 1.55 mg/dL 0.55-1.02 [facility] Comment on above: The validity of the calculated GFR & GFRAA in patients over 70 years has not been determined. Clinical correlation is essential. Serum or plasma urea nitroge n measurement (mass/volume)Ordered By: Elizabet Viramontes on 12-04-2022 Urea nitrogen [Mass/Vol] 24 mg/dL 7-18 [facility] Squamous epithelial cells de tection in urine sediment by light microscopyOrdered By: Eliazbet Viramontes on 12-04-2022 Epithelial cells.squamous LM Ql (Urine sed) 0-5 SEEN /hpf 5-10 [facility] Thin prep Papanicolaou smear with manual screeningOrdered By: Elizabet Viramontes on 12-04-2022 Thin prep Papanicolaou smear with manual screening 20 U/L 15-37 [facility] Thin prep Papanicolaou smear with manual screening 8 5-15 [facility] Urine blood detectionOrdered By: Elizabet Viramontes on 12-04-2022 RBC Ql (U) 50 /ul Negative [facility] RBC Ql (U) 0 SEEN /hpf 0-5 [facility] Urine clarityOrdered By: Tess Viramontes on 12-04-2022 Clarity (U) Turbid Clear [facility] Urine color determinationOrd ered By: Elizabet Viramontes on 12-04-2022 Color (U) Yellow Yellow [facility] Urine glucose detectionOrder ed By: Elizabet Viramontes on 05-25-2023 Glucose Ql (U) 1000 mg/dl Normal [facility] Urine leukocyte esterase det ection by dipstickOrdered By: Elizabet Viramontes on 12-04-2022 Leukocyte esterase Test strip Ql (U) 500 /ul Negative [facility] Urine pHOrdered By: Elizabet holcomb on 12-04-2022 pH (U) 6.0 [pH] 5.0 - 8.0 [facility] Urine sediment bacteria coun t by microscopy (number/high power field)Ordered By: Elizabet Viramontes on 12-04-2022 Bacteria LM.HPF (Urine sed) [#/Area] 1 /[HPF] None Seen [facility] Urine specific gravity measu rementOrdered By: Elizabet Viramontes on 12-04-2022 Specific gravity (U) [Rel density] 1.010 1.002-1.030 [facility] Urobilinogen Auto test strip Ql (U)Ordered By: Elizabet Viramontes on 12-04-2022 Urobilinogen Ql (U) Normal mg/dl Normal [facility] CNNURSEon 09-06-2020 CNNURSE Nurse Visit (COVAMD) GUDELIA GUPTA ([id number]) 1940 F Date Time Provider Department 09/06/20 YONG HUNT (DICK) COVLAKIA During your visit today, we recorded the following information about you: Allergies As of Date: 09/06/2020 Noted Allergy Reaction POISON FANY 10/17/2005 SULFA (SULFONAMIDE ANTIBIOTICS) 10/17/2005 4 - Hives Date Reviewed: 10/11/2019 Reviewed by: Cara Herring MA - Fully Assessed Order(s):[employer] SARS-COV-2 VACCINE 2D DOSE APPT [[id number]] Order #: [id number] Prescriptions as of 09/06/2020 Sig: ONETOUCH VERIO [...] 10/04/2008 08/13/2011 Routine general medical examination at [facility]*10/04/2008 08/12/2010 BONE AND CARTILAGE DIS NOS [...] disease) Stage 3, GFR 30-59*12/14/2017 Encounter Status:Open [place] Office Visit: [facility] 05-26-20 17 Dietary management education, guidance, and counseling (procedure) yes Invalid Interpretation Code [employer] Phone: [phone] Documentation of current medications (procedure) Done Invalid Interpretation Code [employer] Phone: [phone] Fall risk assessment No Invalid Interpretation Code [employer] Phone: [phone] Chart Maintenanceon 05-15-20 16 Left ventricular Ejection fraction 65 % Invalid Interpretation Code [employer] Phone: [phone] Office Visiton 05-15-2016 Tobacco use [facility] Former smoker Invalid Interpretation Code [employer] Phone: [phone] Lab Report: Basic Metabolic Profile (BMP)on 04-04-2016 Anion gap 6 mmol/L Invalid Interpretation Code 5-15 [employer] Phone: [phone] BUN/Creatinine Ratio 14.7 RATIO Invalid Interpretation Code 10-20 [employer] Phone: [phone] Calcium 9.2 mg/dL Invalid Interpretation Code 8.5-10.1 [employer] Work Phone: [phone] Chloride 101 mmol/L Invalid Interpretation Code 98-107 [employer] Work Phone: [phone] CO2 27.0 mmol/L Invalid Interpretation Code 21.0-32.0 [employer] Work Phone: [phone] Creatinine 1.50 mg/dL High 0.55-1.20 [employer] Work Phone: [phone] eGFR (non-black) 43 mL/min/{1.73_m2} Low >60 [employer] Work Phone: [phone] eGFR (non-black) 36 mL/min/{1.73_m2} Low >60 [employer] Work Phone: [phone] Glucose mass conc 106 mg/dL Invalid Interpretation Code 70-110 [employer] Work Phone: [phone] Potassium molar conc 4.5 mmol/L Invalid Interpretation Code 3.5-5.1 [employer] Work Phone: [phone] Sodium 134 mmol/L Low 136-145 [employer] Work Phone: [phone] Urea nitrogen 22 mg/dL High 7-18 [employer] Work Phone: [phone]) Lab Report: Lipid Profileon 02-14-2016 Cholesterol 135 mg/dL Invalid Interpretation Code 200 [employer] Work Phone: [phone] HDL Cholesterol 33 mg/dL Low [employer] Work Phone: [phone] LDL Cholesterol 69 mg/dL Invalid Interpretation Code 0-130 [employer] Work Phone: [phone] Triglyceride 166 mg/dL Invalid Interpretation Code [employer] Work Phone: [phone] very low density lipoproteins 33 mg/dL Invalid Interpretation Code 5-40 [employer] Work Phone: [phone]) Lab Report: Liver Profileon 02-14-2016 Alanine aminotransferase (ALT) 23 U/L Invalid Interpretation Code 12-78 [employer] Work Phone: [phone] Albumin 3.5 g/dL Invalid Interpretation Code 3.4-5.0 [employer] Work Phone: [phone] Alkaline phosphatase (ALP) 101 U/L Invalid Interpretation Code 50-136 [employer] Work Phone: [phone] Aspartate aminotransferase (AST) 15 U/L Invalid Interpretation Code 15-37 [employer] Work Phone: [phone] Bilirubin (direct) 0.11 mg/dL Invalid Interpretation Code 0.00-0.30 [employer] Work Phone: [phone] Bilirubin (total) 0.30 mg/dL Invalid Interpretation Code 0.20-1.00 [employer] Work Phone: [phone] Globulin 4.8 g/dL High 2.3-3.5 [employer] Work Phone: [phone] Protein 8.3 g/dL High 6.4-8.2 [facility] Work Phone: [phone]) Lab Report: CBC-Complete Blo od Cnt No Diffon 01-22-2016 Erythrocyte distribution width Auto Ratio (RBC) 14.1 % Invalid Interpretation Code 11.6-14.6 [employer] Phone: [phone] Erythrocytes (RBC) 4.20 10*6/uL Invalid Interpretation Code 4.2-5.4 [employer] Work Phone: [phone] Hematocrit (HCT) 37.1 % Invalid Interpretation Code 37-47 [employer] Phone: [phone] Hemoglobin mass conc (Bld) 11.9 g/dL Low 12.0-15.0 [employer] Phone: [phone] MCH 28.3 pg Invalid Interpretation Code 27.0-32.0 [employer] Phone: [phone] MCHC mass conc (RBC) 32.1 G/GL Invalid Interpretation Code 32-36 [employer] Phone: [phone] MCV 88.3 fL Invalid Interpretation Code 81-99 [employer] Work Phone: [phone] Platelets 321 10*3/mm3 Invalid Interpretation Code 150-450 [employer] Phone: [phone] PMV by Misael 10.9 fL Invalid Interpretation Code 6.2-12.0 [employer] Phone: [phone] RDW SD 45.0 fL High 35.1-43.9 [employer] Work Phone: [phone] WBC (Leukocytes) 6.9 10*3/uL Invalid Interpretation Code 4.4-11.0 [employer] Work Phone: [phone]) Lab Report: T4 Total, Thyrox inon 11-10-2015 Thyroxine (T4) 11.8 ug/dL Invalid Interpretation Code 4.8-13.9 [employer] Work Phone: [phone]) Lab Report: Thyroid Stim Hor chris (TSH)on 11-10-2015 Thyroid stimulating hormone (TSH) 1.65 u[iU]/mL Invalid Interpretation Code 0.358-3.74 [employer] Work Phone: [phone] Lab Report: BNP,B-Type NATRI URETIC PEPTIDEon 09-26-2015 BNP 105.3 pg/mL High 0-100 [employer] Work Phone: [phone] Lab Report: CBC W/Diff, Auto matedon 09-26-2015 Absolute Neut 2.7 X10 3/UL Invalid Interpretation Code 2.0-7.7 [employer] Work Phone: [phone] Basophils/100 WBC Auto (Bld) 0.4 % Invalid Interpretation Code 0-1 [employer] Work Phone: [phone] Eosinophils/100 leukocytes 2.7 % Invalid Interpretation Code 0-5 [employer] Work Phone: [phone] Immature granulocytes/100 WBC (Bld) 0.200 % Invalid Interpretation Code 0.0-0.9 [employer] Work Phone: [phone] Lymphocytes 1.75 X10 3/UL Invalid Interpretation Code 0.83-4.51 [employer] Work Phone: [phone] Lymphocytes/100 leukocytes 34.3 % Invalid Interpretation Code 19-41 [employer] Work Phone: [phone] Monocytes/100 leukocytes 10.0 % Invalid Interpretation Code 0-10 [employer] Work Phone: [phone] Neutrophils/100 WBC Auto (Bld) 52.4 % Invalid Interpretation Code 47-70 [employer] Work Phone: [phone] Lab Report: Magnesiumon Magnesium 1.8 mg/dL Invalid Interpretation Code 1.8-2.4 [employer] Work Phone: [phone] Replaced Document: Malathi Garcia CG Observationson 03-20-2015 BUN (urea nitrogen) Sinus Bradycardia -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 ABNORMAL Invalid Interpretation Code [employer] Work Phone: [phone] EKG QRS axis -60 deg Invalid Interpretation Code [employer] Work Phone: [phone] P [place] 46 deg Invalid Interpretation Code [employer] Work Phone: [phone] LA Interval 184 ms Invalid Interpretation Code [employer] Work Phone: [phone] Pulse (Heart Rate) 58 /min Invalid Interpretation Code [employer] Work Phone: [phone] QRS Duration 146 ms Invalid Interpretation Code [employer] Work Phone: [phone] QT Interval new path ms Invalid Interpretation Code [employer] Work Phone: [phone] QTc Deng 455 ms Invalid Interpretation Code [employer] Work Phone: [phone] T [place] 19 deg Invalid Interpretation Code [employer] Work Phone: [phone] Lab Report: CBC W/Diff, Auto matedon 02-13-2015 Absolute Neut 2.9 X10 3/UL Invalid Interpretation Code 2.0-7.7 [employer] Work Phone: [phone] Lymphocytes 1.41 X10 3/UL Invalid Interpretation Code 0.83-4.51 [employer] Work Phone: [phone] Office Visiton 11-09-2014 cardiac risk group C Invalid Interpretation Code [employer] Work Phone: [phone] General cardiovascular disease 10Y risk [#] [place] N/A Invalid Interpretation Code [employer] Work Phone: [phone] Office Visiton 09-29-2013 Alcoholism counseling (procedure) no Invalid Interpretation Code [employer] Work Phone: [phone] Replaced Document: Malathi Garcia CG Observationson 03-25-2013 Pulse (Heart Rate) 478 ms Invalid Interpretation Code [employer] Work Phone: [phone] Vital Signs Date Time Vital Sign Value Performing Clinician Facility 04-06-2025 09:27-0400 Heart rate 80 /min Dr. Victor M Rocha MD Work Phone: [facility] 04-06-2025 09:00-0400 Body temperature 97.8 [degF] Dr. Victor M Rocha MD Work Phone: [facility] 04-06-2025 09:00-0400 Diastolic blood pressure 48 mm[Hg] Dr. Victor M Rocha MD Work Phone: [facility] 04-06-2025 09:00-0400 Respiratory rate 16 /min Dr. Victor M Rocha MD Work Phone: [facility] 04-06-2025 09:00-0400 SaO2% (BldA) [Mass fraction] 94 % Dr. Victor M Rocha MD Work Phone: [facility] 04-06-2025 09:00-0400 Systolic blood pressure 121 mm[Hg] Dr. Victor M Rocha MD Work Phone: 7(980)[phone] [place] [address] 04-06-2025 07:01-0400 Inhaled oxygen flow rate 2 L/min Dr. Victor M Rocha MD Work Phone: 2(586)242-652620 [place] [address] 04-06-2025 06:00-0400 Body mass index (BMI) [Ratio] 29.9 kg/m2 Dr. Victor M Rocha MD Work Phone: 8(890)850-946854 [place] [address] 04-06-2025 06:00-0400 Body weight 89.[address] Victor M Rocha MD Work Phone: 6(084)231-799220 [place] [address] 04-03-2025 17:31-0400 Body height 172.[address] Victor M Rocha MD Work Phone: [facility] 03-07-2025 14:02-0400 Body mass index (BMI) [Ratio] 29.13 kg/m2 Victor M Rocha MD Work Phone: [facility] 03-07-2025 14:02-0400 Body weight 86.9 kg Victor M Rocha MD Work Phone: [facility] 03-07-2025 14:02-0400 Diastolic blood pressure 74 mm[Hg] Victor M Rocha MD Work Phone: [facility] 03-07-2025 14:02-0400 Heart rate 66 /min Victor M Rocha MD Work Phone: [facility] 03-07-2025 14:02-0400 Respiratory rate 16 /min Victor M Rocha MD Work Phone: [facility] 03-07-2025 14:02-0400 Systolic blood pressure 112 mm[Hg] Victor M Rocha MD Work Phone: [facility] 02-24-2025 13:05-0400 Body height 172.7 cm Shara Agarwal PA-C Work Phone: [facility] 02-24-2025 13:05-0400 Body mass index (BMI) [Ratio] 27.67 kg/m2 Shara Agarwal PA-C Work Phone: [facility] 02-24-2025 13:05-0400 Body weight 82.56 kg Shara Agarwal PA-C Work Phone: [facility] 02-24-2025 13:05-0400 Diastolic blood pressure 64 mm[Hg] Shara Agarwal PA-C Work Phone: [facility] 02-24-2025 13:05-0400 Heart rate 66 /min Shara Agarwal PA-C Work Phone: [facility] 02-24-2025 13:05-0400 SaO2% (BldA) [Mass fraction] 96 % Shara Agarwal PA-C Work Phone: [facility] 02-24-2025 13:05-0400 Systolic blood pressure 132 mm[Hg] Shara Agarwal PA-C Work Phone: [facility] 02-21-2025 09:27-0400 Body height 172.[address] Victor M Rocha MD Work Phone: [facility] 02-21-2025 09:27-0400 Body mass index (BMI) [Ratio] 28.3 kg/m2 Dr. Victor M Rocha MD Work Phone: [facility] 02-21-2025 09:27-0400 Body weight 84.[address] Victor M Rocha MD Work Phone: [facility] 02-21-2025 09:27-0400 Diastolic blood pressure 66 mm[Hg] Dr. Victor M Rocha MD Work Phone: [facility] 02-21-2025 09:27-0400 Heart rate 78 /min Dr. Victor M Rocha MD Work Phone: 4(840)630-636954 [place] [address] 02-21-2025 09:27-0400 Respiratory rate 18 /min Dr. Victor M Rocha MD Work Phone: 1(457)760-762854 [place] [address] 02-21-2025 09:27-0400 SaO2% (BldA) [Mass fraction] 93 % Dr. Victor M Rocha MD Work Phone: 9(552)266-874154 [place] [address] 02-21-2025 09:27-0400 Systolic blood pressure 109 mm[Hg] Dr. Victor M Rocha MD Work Phone: 6(182)236-949754 [place] [address] 02-10-2025 15:00-0400 Heart rate 80 /min Dr. Victor M Rocha MD Work Phone: 9(299)702-165554 [place] [address] 02-10-2025 14:34-0400 Body temperature 98.1 [degF] Dr. Victor M Rocha MD Work Phone: 2(147)088-196954 [place] [address] 02-10-2025 14:34-0400 Diastolic blood pressure 62 mm[Hg] Dr. Victor M Rocha MD Work Phone: 7(208)572-141854 [place] [address] 02-10-2025 14:34-0400 Respiratory rate 18 /min Dr. Victor M Rocha MD Work Phone: 7(404)394-826254 [place] [address] 02-10-2025 14:34-0400 SaO2% (BldA) [Mass fraction] 92 % Dr. Victor M Rocha MD Work Phone: 2(242)453-400854 [place] [address] 02-10-2025 14:34-0400 Systolic blood pressure 128 mm[Hg] Dr. Victor M Rocha MD Work Phone: 9(904)511-391354 [place] [address] 02-10-2025 08:51-0400 Inhaled oxygen flow rate 2 L/min Dr. Victor M Rocha MD Work Phone: 6(830)376-895754 [place] [address] 02-10-2025 04:48-0400 Body mass index (BMI) [Ratio] 27.7 kg/m2 Dr. Victor M Rocha MD Work Phone: 9(386)556-822854 [place] [address] 02-10-2025 04:48-0400 Body weight 82.[address] Victor M Rocha MD Work Phone: 4(074)670-388354 [place] [address] 02-09-2025 09:28-0400 Body height 172.[address] Victor M Rocha MD Work Phone: 1(549)733-728454 [place] [address] 02-08-2025 21:08-0400 Body temperature 98.3 [degF] Dr. Victor M Rocha MD Work Phone: 8(027)473-911454 [place] [address] 02-08-2025 21:08-0400 Diastolic blood pressure 78 mm[Hg] Dr. Victor M Rocha MD Work Phone: 3(217)050-148154 [place] [address] 02-08-2025 21:08-0400 Heart rate 87 /min Dr. Victor M Rocha MD Work Phone: 7(632)339-534054 [place] [address] 02-08-2025 21:08-0400 Respiratory rate 18 /min Dr. Victor M Rocha MD Work Phone: 9(390)843-720054 [place] [address] 02-08-2025 21:08-0400 SaO2% (BldA) [Mass fraction] 95 % Dr. Victor M Rocha MD Work Phone: 2(895)367-654554 [place] [address] 02-08-2025 21:08-0400 Systolic blood pressure 164 mm[Hg] Dr. Victor M Rocha MD Work Phone: 1(625)062-319154 [place] [address] 02-08-2025 21:00-0400 Inhaled oxygen flow rate 2 L/min Dr. Victor M Rocha MD Work Phone: 1(000)441-166954 [place] [address] 02-08-2025 17:11-0400 Body mass index (BMI) [Ratio] 29.5 kg/m2 Dr. Victor M Rocha MD Work Phone: 8(917)661-514254 [place] [address] 02-08-2025 17:11-0400 Body weight 88.[address] Victor M Rocha MD Work Phone: 4(362)731-923154 [place] [address] 02-08-2025 16:54-0400 Body height 172.[address] Victor M Rocha MD Work Phone: 4(031)801-887354 [place] [address] 02-06-2025 10:53-0400 Body mass index (BMI) [Ratio] 31.31 kg/m2 Carlos Lacy [employer]OWERHOUSE [employer]ILER.ACQUISITION ASSOCIATE Work Phone: [facility] 02-06-2025 10:53-0400 Body temperature 98.4 [degF] Carlos Mclaughlinil [employer]OWERHOUSE OILER.ACQUISITION ASSOCIATE Work Phone: [facility] 02-06-2025 10:53-0400 Body weight 88 kg Carlos House [employer]OWERHOUSE OILER.ACQUISITION ASSOCIATE Work Phone: [facility] 02-06-2025 10:53-0400 Diastolic blood pressure 78 mm[Hg] Carlos Lacy POWERHOUSE OILER.ACQUISITION ASSOCIATE Work Phone: [facility] 02-06-2025 10:53-0400 Heart rate 80 /min Carlos House POWERHOUSE OILER.ACQUISITION ASSOCIATE Work Phone: [facility] 02-06-2025 10:53-0400 Respiratory rate 16 /min Carlos House POWERHOUSE OILER.ACQUISITION ASSOCIATE Work Phone: [facility] 02-06-2025 10:53-0400 SaO2% (BldA) [Mass fraction] 94 % Carlos House POWERHOUSE OILER.ACQUISITION ASSOCIATE Work Phone: [facility] 02-06-2025 10:53-0400 Systolic blood pressure 138 mm[Hg] Carlos House POWERHOUSE OILER.ACQUISITION ASSOCIATE Work Phone: [facility] 11-18-2024 06:01-0400 Body mass index (BMI) [Ratio] 29.6 kg/m2 Dr. Victor M Rocha MD Work Phone: [facility] 11-18-2024 06:01-0400 Body weight 88.[address] Victor M Rocha MD Work Phone: [facility] 11-18-2024 06:01-0400 Diastolic blood pressure 76 mm[Hg] Dr. Victor M Rocha MD Work Phone: [facility] 11-18-2024 06:01-0400 Heart rate 67 /min Dr. Victor M Rocha MD Work Phone: [facility] 11-18-2024 06:01-0400 Respiratory rate 18 /min Dr. Victor M Rocha MD Work Phone: [facility] 11-18-2024 06:01-0400 SaO2% (BldA) [Mass fraction] 92 % Dr. Victor M Rocha MD Work Phone: [facility] 11-18-2024 06:01-0400 Systolic blood pressure 134 mm[Hg] Dr. Victor M Rocha MD Work Phone: [facility] 08-12-2024 12:46-0500 Body mass index (BMI) [Ratio] 30.51 kg/m2 Carlos Lacy POWERHOUSE OILER.ACQUISITION ASSOCIATE Work Phone: [facility] 08-12-2024 12:46-0500 Body weight 85.73 kg Carlos House POWERHOUSE OILER.ACQUISITION ASSOCIATE Work Phone: [facility] 08-12-2024 12:46-0500 Diastolic blood pressure 86 mm[Hg] Carlos Lacy POWERHOUSE OILER.ACQUISITION ASSOCIATE Work Phone: [facility] 08-12-2024 12:46-0500 Heart rate 80 /min Carlos Lacy POWERHOUSE OILER.ACQUISITION ASSOCIATE Work Phone: [facility] 08-12-2024 12:46-0500 Respiratory rate 18 /min Carlos Lacy POWERHOUSE OILER.ACQUISITION ASSOCIATE Work Phone: [facility] 08-12-2024 12:46-0500 SaO2% (BldA) [Mass fraction] 96 % Carlos House POWERHOUSE OILER.ACQUISITION ASSOCIATE Work Phone: [facility] 08-12-2024 12:46-0500 Systolic blood pressure 128 mm[Hg] Carlos Lacy POWERHOUSE OILER.ACQUISITION ASSOCIATE Work Phone: [facility] 04-06-2024 11:28-0400 Body mass index (BMI) [Ratio] 29.82 kg/m2 Yovana Painter POWERHOUSE OILER.ACQUISITION ASSOCIATE Work Phone: [facility] 04-06-2024 11:28-0400 Body weight 83.8 kg Yovana Raphaelf [employer]OWERHOUSE OILER.ACQUISITION ASSOCIATE Work Phone: [facility] 04-06-2024 11:28-0400 Diastolic blood pressure 77 mm[Hg] Yovana Sanchezhof POWERHOUSE OILER.ACQUISITION ASSOCIATE Work Phone: [facility] 04-06-2024 11:28-0400 Heart rate 90 /min Yovana Sanchezhof POWERHOUSE OILER.ACQUISITION ASSOCIATE Work Phone: [facility] 04-06-2024 11:28-0400 Respiratory rate 16 /min Yovana Sanchezhof POWERHOUSE OILER.ACQUISITION ASSOCIATE Work Phone: [facility] 04-06-2024 11:28-0400 SaO2% (BldA) [Mass fraction] 95 % Yovana Sanchezhof POWERHOUSE OILER.ACQUISITION ASSOCIATE Work Phone: [facility] 04-06-2024 11:28-0400 Systolic blood pressure 127 mm[Hg] Yovana Sanchezhof POWERHOUSE OILER.ACQUISITION ASSOCIATE Work Phone: [facility] 04-01-2024 08:31-0400 Body mass index (BMI) [Ratio] 30.99 kg/m2 Elizabet Masci DO Work Phone: [facility] 04-01-2024 08:31-0400 Body temperature 97.11 [degF] Elizabet Masci DO Work Phone: [facility] 04-01-2024 08:31-0400 Body weight 87.09 kg Elizabet Masci DO Work Phone: [facility] 04-01-2024 08:31-0400 Diastolic blood pressure 73 mm[Hg] Elizabet Masci DO Work Phone: [facility] 04-01-2024 08:31-0400 Heart rate 90 /min Elizabet Masci DO Work Phone: [facility] 04-01-2024 08:31-0400 SaO2% (BldA) [Mass fraction] 92 % Elizabet Masci DO Work Phone: [facility] 04-01-2024 08:31-0400 Systolic blood pressure 128 mm[Hg] Elizabet Masci DO Work Phone: [facility] 03-25-2024 09:09-0400 Body mass index (BMI) [Ratio] 33.17 kg/m2 Elizabet Masci DO Work Phone: [facility] 03-25-2024 09:09-0400 Body temperature 97.59 [degF] Elizabet Masci DO Work Phone: [facility] 03-25-2024 09:09-0400 Body weight 93.21 kg Elizabet Masci DO Work Phone: [facility] 03-25-2024 09:09-0400 Diastolic blood pressure 72 mm[Hg] Elizabet Masci DO Work Phone: [facility] 03-25-2024 09:09-0400 Heart rate 90 /min Elizabet Masci DO Work Phone: [facility] 03-25-2024 09:09-0400 SaO2% (BldA) [Mass fraction] 82 % Elizabet Masci DO Work Phone: [facility] 03-25-2024 09:09-0400 Systolic blood pressure 137 mm[Hg] Elizabet Masci DO Work Phone: [facility] 02-26-2024 10:59-0400 Body mass index (BMI) [Ratio] 31.55 kg/m2 Elizabet Masci DO Work Phone: [facility] 02-26-2024 10:59-0400 Body temperature 97.59 [degF] Elizabet Masci DO Work Phone: [facility] 02-26-2024 10:59-0400 Body weight 88.68 kg Elizabet Masci DO Work Phone: [facility] 02-26-2024 10:59-0400 Diastolic blood pressure 76 mm[Hg] Elizabet Masci DO Work Phone: [facility] 02-26-2024 10:59-0400 Heart rate 91 /min Elizabet Masci DO Work Phone: [facility] 02-26-2024 10:59-0400 SaO2% (BldA) [Mass fraction] 95 % Elizabet Baker DO Work Phone: [facility] 02-26-2024 10:59-0400 Systolic blood pressure 146 mm[Hg] Elizabet Baker DO Work Phone: [facility] 02-16-2024 12:07-0400 Body mass index (BMI) [Ratio] 32.17 kg/m2 Krislyn Aberegg PA Work Phone: [facility] 02-16-2024 12:07-0400 Body temperature 96.91 [degF] Krislyn Aberegg PA Work Phone: [facility] 02-16-2024 12:07-0400 Body weight 90.4 kg Krislyn Aberegg PA Work Phone: [facility] 02-16-2024 12:07-0400 Diastolic blood pressure 82 mm[Hg] Krislyn Aberegg PA Work Phone: [facility] 02-16-2024 12:07-0400 Heart rate 88 /min Krislyn Aberegg PA Work Phone: [facility] 02-16-2024 12:07-0400 Respiratory rate 16 /min Krislyn Aberegg PA Work Phone: [facility] 02-16-2024 12:07-0400 SaO2% (BldA) [Mass fraction] 96 % Krislyn Aberegg PA Work Phone: [facility] 02-16-2024 12:07-0400 Systolic blood pressure 132 mm[Hg] Krislyn Aberegg PA Work Phone: [facility] 02-01-2024 12:31-0400 Body mass index (BMI) [Ratio] 32.07 kg/m2 Victor M Rocha MD Work Phone: [facility] 02-01-2024 12:31-0400 Body weight 90.13 kg Victor M Rocha MD Work Phone: [facility] 02-01-2024 12:31-0400 Diastolic blood pressure 74 mm[Hg] Victor M Rocha MD Work Phone: [facility] 02-01-2024 12:31-0400 Heart rate 88 /min Victor M Rocha MD Work Phone: [facility] 02-01-2024 12:31-0400 Respiratory rate 16 /min Victor M Rocha MD Work Phone: [facility] 02-01-2024 12:31-0400 Systolic blood pressure 124 mm[Hg] Victor M Rocha MD Work Phone: [facility] 01-15-2024 10:45-0400 Body mass index (BMI) [Ratio] 32.38 kg/m2 Daniel Bucio MD Work Phone: [facility] 01-15-2024 10:45-0400 Body temperature 97.5 [degF] Daniel Bucio MD Work Phone: [facility] 01-15-2024 10:45-0400 Body weight 91 kg Daniel Bucio MD Work Phone: [facility] 01-15-2024 10:45-0400 Diastolic blood pressure 58 mm[Hg] Dainel Bucio MD Work Phone: [facility] 01-15-2024 10:45-0400 Heart rate 91 /min Daniel Bucio MD Work Phone: [facility] 01-15-2024 10:45-0400 Respiratory rate 22 /min Daniel Bucio MD Work Phone: [facility] 01-15-2024 10:45-0400 SaO2% (BldA) [Mass fraction] 95 % Daniel Bucio MD Work Phone: [facility] 01-15-2024 10:45-0400 Systolic blood pressure 128 mm[Hg] Daniel Bucio MD Work Phone: [facility] 12-24-2023 15:53-0400 Body mass index (BMI) [Ratio] 32.96 kg/m2 Victor M Rocha MD Work Phone: [facility] 12-24-2023 15:53-0400 Body weight 92.63 kg Victor M Rocha MD Work Phone: [facility] 12-24-2023 15:53-0400 Diastolic blood pressure 66 mm[Hg] Victor M Rocha MD Work Phone: [facility] 12-24-2023 15:53-0400 Heart rate 90 /min Victor M Rocha MD Work Phone: [facility] 12-24-2023 15:53-0400 Respiratory rate 20 /min Victor M Rocha MD Work Phone: [facility] 12-24-2023 15:53-0400 SaO2% (BldA) [Mass fraction] 94 % Victor M Rocha MD Work Phone: [facility] 12-24-2023 15:53-0400 Systolic blood pressure 124 mm[Hg] Victor M Rocha MD Work Phone: [facility] 12-23-2023 14:10-0400 Body temperature 97.3 [degF] Treatment Wstr Work Phone: [facility] 12-23-2023 14:10-0400 Diastolic blood pressure 76 mm[Hg] Treatment Wstr Work Phone: [facility] 12-23-2023 14:10-0400 Heart rate 90 /min Treatment Wstr Work Phone: [facility] 12-23-2023 14:10-0400 SaO2% (BldA) [Mass fraction] 94 % Treatment Wstr Work Phone: [facility] 12-23-2023 14:10-0400 Systolic blood pressure 142 mm[Hg] Treatment Wstr Work Phone: [facility] 12-11-2023 14:21-0400 Body temperature 97.9 [degF] Treatment Wstr Work Phone: [facility] 12-11-2023 14:21-0400 Diastolic blood pressure 59 mm[Hg] Treatment Wstr Work Phone: [facility] 12-11-2023 14:21-0400 Heart rate 91 /min Treatment Wstr Work Phone: [facility] 12-11-2023 14:21-0400 SaO2% (BldA) [Mass fraction] 93 % Treatment Wstr Work Phone: [facility] 12-11-2023 14:21-0400 Systolic blood pressure 97 mm[Hg] Treatment Wstr Work Phone: [facility] 12-09-2023 13:49-0400 Body temperature 97.39 [degF] Treatment Wstr Work Phone: [facility] 12-09-2023 13:49-0400 Diastolic blood pressure 56 mm[Hg] Treatment Wstr Work Phone: [facility] 12-09-2023 13:49-0400 Heart rate 91 /min Treatment Wstr Work Phone: [facility] 12-09-2023 13:49-0400 SaO2% (BldA) [Mass fraction] 93 % Treatment Wstr Work Phone: [facility] 12-09-2023 13:49-0400 Systolic blood pressure 128 mm[Hg] Treatment Wstr Work Phone: [facility] 12-02-2023 13:36-0400 Body temperature 97.39 [degF] Treatment Wstr Work Phone: [facility] 12-02-2023 13:36-0400 Diastolic blood pressure 62 mm[Hg] Treatment Wstr Work Phone: [facility] 12-02-2023 13:36-0400 Heart rate 79 /min Treatment Wstr Work Phone: [facility] 12-02-2023 13:36-0400 Respiratory rate 18 /min Treatment Wstr Work Phone: [facility] 12-02-2023 13:36-0400 SaO2% (BldA) [Mass fraction] 99 % Treatment Wstr Work Phone: [facility] 12-02-2023 13:36-0400 Systolic blood pressure 108 mm[Hg] Treatment Wstr Work Phone: [facility] 11-26-2023 15:06-0400 Body temperature 97.3 [degF] Treatment Wstr Work Phone: [facility] 11-26-2023 15:06-0400 Diastolic blood pressure 74 mm[Hg] Treatment Wstr Work Phone: [facility] 11-26-2023 15:06-0400 Heart rate 90 /min Treatment Wstr Work Phone: [facility] 11-26-2023 15:06-0400 Respiratory rate 20 /min Treatment Wstr Work Phone: [facility] 11-26-2023 15:06-0400 SaO2% (BldA) [Mass fraction] 93 % Treatment Wstr Work Phone: [facility] 11-26-2023 15:06-0400 Systolic blood pressure 114 mm[Hg] Treatment Wstr Work Phone: [facility] 11-23-2023 14:38-0400 Body mass index (BMI) [Ratio] 34.46 kg/m2 Victor M Rocha MD Work Phone: [facility] 11-23-2023 14:38-0400 Body weight 96.84 kg Victor M Rocha MD Work Phone: [facility] 11-23-2023 14:38-0400 Diastolic blood pressure 76 mm[Hg] Victor M Rocha MD Work Phone: [facility] 11-23-2023 14:38-0400 Heart rate 68 /min Victor M Rocha MD Work Phone: [facility] 11-23-2023 14:38-0400 Respiratory rate 18 /min Victor M Rocha MD Work Phone: [facility] 11-23-2023 14:38-0400 Systolic blood pressure 120 mm[Hg] Victor M Rocha MD Work Phone: [facility] 11-17-2023 11:31-0400 Body mass index (BMI) [Ratio] 34.38 kg/m2 Elizabet Vogeli DO Work Phone: [facility] 11-17-2023 11:31-0400 Body temperature 97.5 [degF] Elizabet Vogeli DO Work Phone: [facility] 11-17-2023 11:31-0400 Body weight 96.62 kg Elizabet Vogeli DO Work Phone: [facility] 11-17-2023 11:31-0400 Diastolic blood pressure 76 mm[Hg] Elizabet Vogeli DO Work Phone: [facility] 11-17-2023 11:31-0400 Heart rate 89 /min Elizabet Vogeli DO Work Phone: [facility] 11-17-2023 11:31-0400 SaO2% (BldA) [Mass fraction] 93 % Elizabet Vogeli DO Work Phone: [facility] 11-17-2023 11:31-0400 Systolic blood pressure 131 mm[Hg] Elizabet Vogeli DO Work Phone: [facility] 10-30-2023 10:25-0400 Body weight 95.89 kg Victor M Rocha MD Work Phone: [facility] 10-30-2023 10:25-0400 Diastolic blood pressure 64 mm[Hg] Victor M Rocha MD Work Phone: [facility] 10-30-2023 10:25-0400 Heart rate 90 /min Victor M Rocha MD Work Phone: [facility] 10-30-2023 10:25-0400 Respiratory rate 18 /min Victor M Rocha MD Work Phone: [facility] 10-30-2023 10:25-0400 SaO2% (BldA) [Mass fraction] 100 % Victor M Rocha MD Work Phone: [facility] 10-30-2023 10:25-0400 Systolic blood pressure 118 mm[Hg] Victor M Rocha MD Work Phone: [facility] 06-22-2023 11:34-0500 Body temperature 98.71 [degF] Ana Podlogar POWERHOUSE [employer]ILER.ACQUISITION ASSOCIATE Work Phone: [facility] 06-22-2023 11:34-0500 Body weight 93.35 kg Ana Podlogar POWERHOUSE OILER.ACQUISITION ASSOCIATE Work Phone: [facility] 06-22-2023 11:34-0500 Diastolic blood pressure 62 mm[Hg] Ana Podlogar POWERHOUSE OILER.ACQUISITION ASSOCIATE Work Phone: [facility] 06-22-2023 11:34-0500 Heart rate 90 /min Ana Podlogar POWERHOUSE OILER.ACQUISITION ASSOCIATE Work Phone: [facility] 06-22-2023 11:34-0500 Respiratory rate 18 /min Ana Podlogar POWERHOUSE OILER.ACQUISITION ASSOCIATE Work Phone: [facility] 06-22-2023 11:34-0500 SaO2% (BldA) [Mass fraction] 97 % Ana Podlogar POWERHOUSE OILER.ACQUISITION ASSOCIATE Work Phone: [facility] 06-22-2023 11:34-0500 Systolic blood pressure 122 mm[Hg] Ana Podlogar POWERHOUSE OILER.ACQUISITION ASSOCIATE Work Phone: [facility] 06-15-2023 14:10-0500 Body height 167.[address] Victor M Rocha Work Phone: [facility] 06-15-2023 14:10-0500 Body temperature 97.3 [degF] Dr. Victor M Rocha Work Phone: [facility] 06-15-2023 14:10-0500 Diastolic blood pressure 60 mm[Hg] Dr. Victor M Rocha Work Phone: [facility] 06-15-2023 14:10-0500 Heart rate 91 /min Dr. Victor M Rocha Work Phone: [facility] 06-15-2023 14:10-0500 Respiratory rate 16 /min Dr. Victor M Rocha Work Phone: [facility] 06-15-2023 14:10-0500 SaO2% (BldA) [Mass fraction] 94 % Dr. Victor M Rocha Work Phone: [facility] 06-15-2023 14:10-0500 Systolic blood pressure 125 mm[Hg] Dr. Victor M Rocha Work Phone: [facility] 06-05-2023 12:20-0500 Body temperature 97.5 [degF] Beverley Praisler-Wood POWERHOUSE OILER.ACQUISITION ASSOCIATE Work Phone: [facility] 06-05-2023 12:20-0500 Body weight 93.89 kg Beverley Praisler-Wood POWERHOUSE OILER.ACQUISITION ASSOCIATE Work Phone: [facility] 06-05-2023 12:20-0500 Diastolic blood pressure 66 mm[Hg] Beverley Praisler-Wood POWERHOUSE OILER.ACQUISITION ASSOCIATE Work Phone: [facility] 06-05-2023 12:20-0500 Heart rate 72 /min Beverley Praisler-Wood POWERHOUSE OILER.ACQUISITION ASSOCIATE Work Phone: [facility] 06-05-2023 12:20-0500 Respiratory rate 16 /min Beverley Praisler-Wood POWERHOUSE OILER.ACQUISITION ASSOCIATE Work Phone: [facility] 06-05-2023 12:20-0500 SaO2% (BldA) [Mass fraction] 98 % Beverley Praisler-Wood POWERHOUSE OILER.ACQUISITION ASSOCIATE Work Phone: [facility] 06-05-2023 12:20-0500 Systolic blood pressure 118 mm[Hg] Beverley Praisler-Wood POWERHOUSE OILER.ACQUISITION ASSOCIATE Work Phone: [facility] 04-28-2023 10:42-0400 Body weight 93.44 kg Victor M Rocha MD Work Phone: [facility] 04-28-2023 10:42-0400 Diastolic blood pressure 72 mm[Hg] Victor M Rocha MD Work Phone: [facility] 04-28-2023 10:42-0400 Heart rate 82 /min Victor M Rocha MD Work Phone: [facility] 04-28-2023 10:42-0400 Respiratory rate 18 /min Victor M Rocha MD Work Phone: [facility] 04-28-2023 10:42-0400 Systolic blood pressure 118 mm[Hg] Victor M Rocha MD Work Phone: [facility] 02-17-2023 11:11-0400 Body height 167.[address] Victor M Rocha Work Phone: [facility] 02-17-2023 11:11-0400 Body mass index (BMI) [Ratio] 33.4 kg/m2 Dr. Victor M Rocha Work Phone: [facility] 02-17-2023 11:11-0400 Body weight 93.[address] Victor M Rocha Work Phone: [facility] 02-17-2023 11:11-0400 Diastolic blood pressure 74 mm[Hg] Dr. Victor M Rocha Work Phone: [facility] 02-17-2023 11:11-0400 Heart rate 91 /min Dr. Victor M Rocha Work Phone: [facility] 02-17-2023 11:11-0400 Respiratory rate 20 /min Dr. Victor M Rocha Work Phone: [facility] 02-17-2023 11:11-0400 Systolic blood pressure 130 mm[Hg] Dr. Victor M Rocha Work Phone: [facility] 12-11-2022 14:10-0400 Body weight 95.71 kg Victor M Rocha MD Work Phone: [facility] 12-11-2022 14:10-0400 Diastolic blood pressure 68 mm[Hg] Victor M Rocha MD Work Phone: [facility] 12-11-2022 14:10-0400 Heart rate 84 /min Victor M Rocha MD Work Phone: [facility] 12-11-2022 14:10-0400 Respiratory rate 20 /min Victor M Rocha MD Work Phone: [facility] 12-11-2022 14:10-0400 Systolic blood pressure 114 mm[Hg] Victor M Rocha MD Work Phone: [facility] 12-04-2022 17:54-0400 Diastolic blood pressure 65 mm[Hg] Dr. Victor M Rocha Work Phone: [facility] 12-04-2022 17:54-0400 Systolic blood pressure 118 mm[Hg] Dr. Victor M Rocha Work Phone: [facility] 12-04-2022 15:07-0400 Heart rate 88 /min Dr. Victor M Rocha Work Phone: [facility] 12-04-2022 15:07-0400 Respiratory rate 20 /min Dr. Victor M Rocha Work Phone: [facility] 12-04-2022 13:55-0400 Body mass index (BMI) [Ratio] 34.7 kg/m2 Dr. Victor M Rocha Work Phone: [facility] 12-04-2022 13:55-0400 Body temperature 96.3 [degF] Dr. Victor M Rocha Work Phone: [facility] 12-04-2022 13:55-0400 Body weight 97.[address] Victor M Rocha Work Phone: [facility] 12-04-2022 13:55-0400 SaO2% (BldA) [Mass fraction] 94 % Dr. Victor M Rocha Work Phone: [facility] 10-24-2022 10:24-0400 Body weight 96.16 kg Victor M Rocha MD Work Phone: [facility] 10-24-2022 10:24-0400 Diastolic blood pressure 78 mm[Hg] Victor M Rocha MD Work Phone: [facility] 10-24-2022 10:24-0400 Heart rate 66 /min Victor M Rocha MD Work Phone: [facility] 10-24-2022 10:24-0400 Respiratory rate 16 /min Victor M Rocha MD Work Phone: [facility] 10-24-2022 10:24-0400 Systolic blood pressure 120 mm[Hg] Victor M Rocha MD Work Phone: [facility] 09-09-2022 11:03-0500 Body height 167.6 cm Ida Magaña MD Work Phone: [facility] 09-09-2022 11:03-0500 Body temperature 97.81 [degF] Ida Magaña MD Work Phone: [facility] 09-09-2022 11:03-0500 Body weight 95.48 kg Ida Magaña MD Work Phone: [facility] 09-09-2022 11:03-0500 Diastolic blood pressure 71 mm[Hg] Ida Magaña MD Work Phone: [facility] 09-09-2022 11:03-0500 Heart rate 90 /min Ida Magaña MD Work Phone: [facility] 09-09-2022 11:03-0500 Systolic blood pressure 121 mm[Hg] Ida Magaña MD Work Phone: [facility] 08-15-2022 12:37-0500 Body height 170.[address] Victor M Rocha Work Phone: [facility] 08-15-2022 12:37-0500 Body mass index (BMI) [Ratio] 33.6 kg/m2 Dr. Victor M Rocha Work Phone: [facility] 08-15-2022 12:37-0500 Body temperature 97.2 [degF] Dr. Victor M Rocha Work Phone: [facility] 08-15-2022 12:37-0500 Body weight 97.[address] Victor M Rocha Work Phone: [facility] 08-15-2022 12:37-0500 Diastolic blood pressure 69 mm[Hg] Dr. Victor M Rocha Work Phone: [facility] 08-15-2022 12:37-0500 Heart rate 90 /min Dr. Victor M Rocha Work Phone: [facility] 08-15-2022 12:37-0500 Respiratory rate 18 /min Dr. Victor M Rocha Work Phone: [facility] 08-15-2022 12:37-0500 SaO2% (BldA) [Mass fraction] 97 % Dr. Victor M Rocha Work Phone: [facility] 08-15-2022 12:37-0500 Systolic blood pressure 132 mm[Hg] Dr. Victor M Rocha Work Phone: [facility] 01-24-2022 12:57-0400 Body height 172.[address] Victor M Rocha Work Phone: [facility] Work Phone: 01-24-2022 12:57-0400 Body mass index (BMI) [Ratio] 32.5 kg/m2 Dr. Victor M Rocha Work Phone: [facility] Work Phone: 01-24-2022 12:57-0400 Body weight 97.[address] Victor M Rocha Work Phone: [facility] Work Phone: 01-24-2022 12:57-0400 Diastolic blood pressure 60 mm[Hg] Dr. Victor M Rocha Work Phone: [facility] Work Phone: 01-24-2022 12:57-0400 Heart rate 80 /min Dr. Victor M Rocha Work Phone: [facility] Work Phone: 01-24-2022 12:57-0400 Systolic blood pressure 120 mm[Hg] Dr. Victor M Rocha Work Phone: [facility] Work Phone: 01-14-2022 09:29-0400 Body weight 97.07 kg Victor M Rocha MD Work Phone: [facility] 01-14-2022 09:29-0400 Diastolic blood pressure 74 mm[Hg] Victor M Rocha MD Work Phone: [facility] 01-14-2022 09:29-0400 Heart rate 66 /min Victor M Rocha MD Work Phone: [facility] 01-14-2022 09:29-0400 Respiratory rate 16 /min Victor M Rocha MD Work Phone: [facility] 01-14-2022 09:29-0400 Systolic blood pressure 122 mm[Hg] Victor M Rocha MD Work Phone: [facility] 10-11-2021 10:59-0400 Body weight 96.25 kg Victor M Rocha MD Work Phone: [facility] 10-11-2021 10:59-0400 Diastolic blood pressure 70 mm[Hg] Victor M Rocha MD Work Phone: [facility] 10-11-2021 10:59-0400 Heart rate 66 /min Victor M Rocha MD Work Phone: [facility] 10-11-2021 10:59-0400 Respiratory rate 16 /min Victor M Rocha MD Work Phone: [facility] 10-11-2021 10:59-0400 Systolic blood pressure 124 mm[Hg] Victor M Rocha MD Work Phone: [facility] 05-26-2017 13:20-0500 BMI (Body Mass Index) 33.3 kg/m2 [facility] Work Phone: 05-26-2017 13:20-0500 BP Diastolic 70 mm[Hg] [facility] Work Phone: 05-26-2017 13:20-0500 BP Systolic 142 mm[Hg] [facility] Work Phone: 05-26-2017 13:20-0500 Height [...] Non-patient / [facility] Work [facility]: Start: 04-05-2025 Non-patient / [facility] Work [facility]: Start: 04-04-2025 Non-patient / [facility] Work [facility]: Start: 04-03-2025 ambulatory Gunnar Mullen Facility:[facility] Start: 04-03-2025 End: 04-06-2025 Evaluation and management of inpatient Dr. Gunnar Mullen DO -[facility] Work Phone: Start: 03-07-2025 End: 03-07-2025 Office outpatient visit 25 minutes Victor M Rocha MD Work Phone: [facility] [place] Comment on above: Type 2 [...] 03-07-2025 End: 03-07-2025 ambulatory VICTOR M ROCHA Facility:[facility] Start: 02-24-2025 End: 02-24-2025 Patient encounter procedure Shara Agarwal PA-C Work Phone: [facility] [place] Comment on above: Anemia, unspecified type; Positive fecal occult blood test Start: 02-24-2025 End: 02-24-2025 ambulatory SHARA AGARWAL Facility:[facility] Start: 02-23-2025 End: 02-23-2025 Refill Victor M Rocha MD Work Phone: [facility] [place] Comment on above: Refill Request Start: 02-21-2025 End: 02-21-2025 Patient encounter procedure Phyllis BYERS -[facility] Work Phone: Start: 02-21-2025 End: 02-21-[address] Victor M Rocha MD Work Phone: -[facility] Start: 02-14-2025 End: 02-14-2025 ambulatory SHRALENE CHERRY Facility:[facility] Start: 02-13-2025 End: 02-14-2025 Telephone encounter Victor M Rocha MD Work Phone: [facility] Comment on above: medication interacti ons; POC Transition Of Care ( /) Start: 02-13-2025 End: 02-14-2025 ambulatory Kandi Woody MA Family Medicine [facility] dunbar Start: 02-11-2025 Non-patient / Non-visit Dr. Fifi Vo MD [facility] Work Phone: Start: 02-10-2025 Non-patient / Non-visit Brock Huang nd, DO [facility] Start: 02-10-2025 Non-patient / [facility] Work Phone: Start: 02-10-2025 End: 02-10-2025 Telephone encounter Victor M Rocha MD Work Phone: [facility] Comment on above: [facility] Start: 02-09-2025 Non-patient / Non-[facility] Work Phone: Start: 02-09-2025 ambulatory Vinny Root Facility:[facility] Start: 02-09-2025 Non-patient / Non-visit [facility]. Du [facility] Start: 02-08-2025 ambulatory Deandre Muñoz ty:[facility] Start: 02-08-2025 End: 02-10-2025 Evaluation and management of inpatient Dr. Deandre Xiao DO [facility] Work Phone: Start: 02-06-2025 End: 02-06-2025 Follow-up encounter Carlos House APRN.ACQUISITION ASSOCIATE Work Phone: [facility] Comment on above: Results Start: 02-06-2025 End: 02-06-2025 Subsequent hospital visit by physician [facility] Work Phone: Radiology Comment on above: DELONG (dyspnea on exer tion) [R06.09] Start: 02-06-2025 End: 02-06-2025 ambulatory CARLOS HOUSE Facility:[facility] Start: 02-06-2025 End: 02-06-2025 Office outpatient visit 40 minutes Carlos House APRN.ACQUISITION ASSOCIATE Work Phone: [facility] Comment on above: Chronic diastolic CH F (congestive heart failure) (HCC) (Primary Dx); DELONG (dyspnea on exertion); Generalized weakness; Hypothyroidism, unspecified type; Hyperlipidemia, unspecified hyperlipidemia type; Essential hypertension, benign; Type 2 diabetes mellitus with other diabetic kidney complication, without long-term current use of insulin (HCC); Stage 3a chronic kidney disease (HCC) Start: 02-06-2025 End: 02-06-2025 ambulatory CARLOS HOUSE Facility:[facility] Start: 02-02-2025 End: 02-02-2025 ambulatory Prema Sampson RN [facility] Comment on above: Bi-Weekly Outreach ( Recurring) for Chronic Disease Management Start: 01-12-2025 End: 01-12-2025 ambulatory Prema Sampson RN [facility] Comment on above: Bi-Weekly Outreach ( Recurring) for Chronic Disease Management Start: 01-10-2025 Non-patient / Non-visit Dr. Floyd Li MD -[facility] Work Phone: Start: 01-09-2025 End: 01-09-[address] Victor M Rocha MD Work Phone: [facility] Start: 01-09-2025 End: 01-09-[address] Vinny Root MD -[facility] Work Phone: Start: 12-29-2024 End: 12-29-2024 ambulatory Prema Sampson RN [facility] Comment on above: Bi-Weekly Outreach ( Recurring) for Chronic Disease Management Start: 12-15-2024 End: 12-15-2024 ambulatory Prema Sampson RN [facility] Start: 12-15-2024 End: 12-15-2024 Coordination of care plan Prema Sampson RN Ambulatory [facility] Comment on above: Care Coordination (C ortez review End Outreach for CHF GDMT care path) Start: 11-25-2024 End: 11-25-2024 Refill Victor M Rocha MD Work Phone: [address] [place] [address] Comment on above: Refill Request Start: 11-21-2024 End: 11-21-2024 ambulatory Brian Donnelly RN Work Phone: [facility] Comment on above: Bi-Weekly Outreach ( Recurring) for Chronic Disease Management Start: 11-18-2024 End: 11-18-2024 Patient encounter procedure Amber BRISCOE -[facility] Work Phone: Start: 11-18-2024 End: 11-18-2024 ambulatory Victor M Rocha Facility[facility] Start: 10-28-2024 End: 10-28-2024 ambulatory Prema Sampson RN [facility] Comment on above: Bi-Weekly Outreach ( Recurring) for Chronic Disease Management Start: 10-27-2024 End: 10-27-2024 Refill Victor M Rocha MD Work Phone: [facility] Comment on above: Refill Request Start: 10-10-2024 End: 10-10-2024 ambulatory Vinny Root Facility:[facility] Start: 10-10-2024 End: 10-10-[address] Vinny Root MD -[facility] Work Phone: Start: 10-07-2024 End: 10-07-2024 ambulatory Prema Sampson RN [facility] Comment on above: Bi-Weekly Outreach ( Recurring) for Chronic Disease Management Start: 09-13-2024 End: 09-13-2024 ambulatory Prema Sampson RN [facility] Comment on above: Initial enrollment o evan for Chronic Disease Management Start: 08-12-2024 End: 08-12-2024 ambulatory CARLOS HOUSE Facility:[facility] Start: 08-12-2024 End: 08-12-2024 Patient encounter procedure Carlos House POWERHOUSE OILER.ACQUISITION ASSOCIATE Work Phone: [facility] Comment on above: Medicare annual well ness [...] 08-08-2024 End: 08-08-2024 ambulatory VICTOR M ROCHA Facility:[facility] Start: 07-11-2024 End: 07-11-[address] [facility] Facility:[facility] Start: 05-24-2024 End: 05-24-2024 Telephone encounter Victor M Rocha MD Work Phone: [facility] Comment on above: Forms (Dasco-request to [...] Victor M Rocha MD Work Phone: [facility] Comment on above: Forms ([facility]) Start: 05-11-2024 End: 05-11-[address] [facility] Facility:[facility] Start: 05-06-2024 End: 05-06-2024 Refill Victor M Rocha MD Work Phone: [facility] Start: 04-21-2024 End: 04-21-2024 Patient Outreach Pratik Luis RN Work Phone: [facility] Comment on above: Weekly phone contact (Recurring) for Transitional Care Management Start: 04-18-2024 End: 04-18-2024 [facility] Facility:[facility] Start: 04-15-2024 End: 04-15-2024 Refill Victor M Rocha MD Work Phone: [facility] Comment on above: Refill Request Start: 04-07-2024 End: 04-07-2024 Patient Outreach Pratik Luis RN Work Phone: [facility] Comment on above: Weekly phone contact (Recurring) for Transitional Care Management Start: 04-06-2024 End: 04-06-2024 Patient encounter procedure Yovana Painter APRN.ACQUISITION ASSOCIATE Work Phone: [facility] Comment on above: Hospital discharge f ollow-up (Primary Dx); Acute on chronic congestive heart failure, unspecified heart failure type (HCC); MGUS (monoclonal gammopathy of unknown significance) Start: 04-06-2024 End: 04-06-2024 ambulatory YOVANA PAINTER Facility:[facility] Start: 04-05-2024 End: 04-05-2024 Telephone [...] M Rocha MD Work Phone: [facility] [place] Start: 03-30-2024 End: 04-11-2024 Patient Outreach Pratik Luis RN Work Phone: [facility] Comment on above: Initial phone contac [...] Hematology/Oncology Start: 03-12-2024 ambulatory ELIZABET BAKER Facility:[id number] Start: 03-12-2024 End: 03-12-2024 Subsequent hospital visit by physician [facility] Work Phone: Radiology CT Scan Comment on above: MGUS (monoclonal janet mopathy of unknown significance) [D47.2] Start: 03-03-2024 End: 03-03-2024 Telephone encounter Elizaebt Baker DO Work Phone: Hematology/Oncology Comment on [...] Patient encounter procedure Dani BRISCOE Work Phone: [facility] Comment on above: Burn (Primary [...] Telephone encounter Kortney Ruiz APRN.CNP Work Phone: [facility] Comment on above: Results Start: 01-15-2024 End: 01-15-2024 Office outpatient visit 25 minutes Daniel Bucio MD Work Phone: [facility] Comment on above: Urgency of urination (Primary Dx) Start: 01-01-2024 Patient Outreach Brittny galeana RN Work Phone: [facility] Comment on above: Transition Of Care ( [facility] Discharge 12/17/23) Initial phone contact for Transitional Care Management Start: 12-28-2023 Telephone encounter Elizabet garcia DO Work Phone: Hematology/Oncology Comment on above: Results Start: 12-24-2023 End: 12-24-2023 Patient encounter procedure Victor M Rocha MD Work Phone: [facility] Comment on above: Chronic diastolic CH F (congestive heart failure) (HCC) (Primary Dx); 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; 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); Essential hypertension, benign; Paroxysmal atrial fibrillation (HCC); Iron deficiency anemia, unspecified iron deficiency anemia type; MGUS (monoclonal gammopathy of unknown significance); Hypothyroidism, unspecified type; Type 2 diabetes mellitus with other diabetic kidney complication, without long-term current use of insulin (HCC) Start: 12-23-2023 End: 12-23-2023 ambulatory Treatment [address] Work Phone: Hematology/Oncology Comment on [...] 12-11-2023 End: 12-11-2023 ambulatory Treatment Rm 13 [facility] Work Phone: Hematology/Oncology Comment on above: Iron deficiency anem ia, unspecified iron deficiency anemia type (Primary Dx) Start: 12-09-2023 End: 12-09-2023 ambulatory Treatment Rm 13 [facility] Work Phone: Hematology/Oncology Comment on above: Iron deficiency anem ia, unspecified iron deficiency anemia type (Primary Dx) Start: 12-02-2023 End: 12-02-2023 ambulatory Treatment Rm 13 [facility] Work Phone: Hematology/Oncology Comment on above: Iron deficiency anem ia, unspecified iron deficiency anemia type (Primary Dx) Start: 11-27-2023 Telephone encounter Financial Navigator Meño Work Phone: Financial Services Comment on above: Benefits Investigati on Start: 11-26-2023 End: 11-26-2023 ambulatory Treatment 13 [facility] Work Phone: Hematology/Oncology Comment on above: [...] arterial hypertension (HCC); Atherosclerotic heart disease of platinum coronary artery with other forms of angina [...] arterial hypertension (HCC); 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 Victor M Rocha Work Phone: [facility] Work Phone: Start: 06-15-2023 Telephone encounter Victor M hayes MD Work Phone: [address] [place] [address] Comment on above: Patient Update Start: 06-05-2023 End: 06-05-2023 Patient encounter procedure Beverley Reed APRN.CNP Work Phone: [facility] Comment on above: Urinary frequency (P rimary Dx); Glucosuria Start: 04-28-2023 End: 04-28-2023 Patient encounter procedure Victor M Rocha MD Work Phone: [facility] Comment on above: Essential hypertensi on, [...] / Non-visit Dr. Jeferson Rocha Work Phone: [facility] Start: 03-17-2023 End: 03-17-[address] Victor M Rocha Work Phone: [facility] Work Phone: Start: 03-17-2023 End: 03-17-[address] Victor M Rocha Work Phone: [facility] Work Phone: Start: 02-17-2023 End: 02-17-[address] Victor M Rocha Work Phone: [facility] Work Phone: Start: 02-17-2023 End: 02-17-[address] Victor M Rocha Work Phone: [facility] Work Phone: Start: 02-17-2023 End: 02-17-[address] Victor M Rocha Work Phone: [facility] Work Phone: Start: 01-02-2023 Refill Victor M araujo MD Work Phone: [facility] Comment on above: Refill Request Start: 12-11-2022 End: 12-11-2022 Patient encounter procedure Victor M Rocha MD Work Phone: [facility] Comment on above: Hospital discharge f ollow-up (Primary Dx); Colitis, infectious; UTI (urinary tract infection), bacterial; Benign neoplasm of meninges, unspecified (HCC); Secondary pulmonary arterial hypertension (HCC); Stage 3a chronic kidney disease (HCC); Paroxysmal atrial fibrillation (HCC); 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HCC); 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 Victor M Rocha Work Phone: [facility] Start: 07-16-2022 End: 07-16-[address] Victor M Rocha Work Phone: [facility] Start: 06-02-2022 Refill Victor M araujo MD Work Phone: [facility] Comment on above: Refill Request Start: 03-03-2022 Refill Victor M araujo MD Work Phone: [facility] Comment on above: Refill Request Start: 02-13-2022 Non-patient / Non-visit Dr. Jeferson Rocha Work Phone: [facility] Start: 02-13-2022 End: 02-13-[address] [facility] M [facility] Start: 01-24-2022 End: 01-24-[address] Victor M Rocha Work Phone: 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 iVctor M Rocha MD Work Phone: Start: 02-08-2025 SARS-CoV-2, Influenz a & RSV (PCR) Dr. Victor M Rocha MD Work Phone: Start: 02-06-2025 Radiologic exam ches t 2 views Carlos House POWERHOUSE OILER.ACQUISITION ASSOCIATE Work Phone: Start: 02-06-2025 End: 02-06-2025 Ecg routine ecg w/least 12 lds i&r only [facility] Provider Start: 01-15-2024 Urnls dip stick/tabl et rgnt auto w/o microscopy Kortney Ruiz POWERHOUSE OILER.ACQUISITION ASSOCIATE Work Phone: Start: 06-05-2023 Urnls dip stick/tabl et rgnt auto w/o microscopy Lex Gomez POWERHOUSE OILER.ACQUISITION ASSOCIATE Work Phone: Start: 04-28-2023 INFLUENZA VACCINE, P [...] Victor M Rocha Work Phone: Start: 01-14-2022 [employer] COVI D-19 VACCINE, AGE 12+ YR (BRIDGES TOP) Victor M Rocha MD Work Phone: Start: 05-26-2017 End: 05-26-2017 LEGGER PRESS OPERATOR Amber Palafox PA-C Work Phone: Start: 05-26-2017 End: 05-26-2017 Follow Up Appt 6 months Amber Palafox PA-C Work Phone: Start: 05-26-2017 End: 05-26-2017 Follow Up Appt Other Amber Palafox PA-C Work Phone: Start: 03-20-2017 End: 05-14-2017 Follow Up Appt 3 months Stephen Jerry Start: 03-20-2017 End: 03-25-2017 Interrogation eval remote 90 d 1/2/refrigeration mechanic lead pm Vinny Root MD Start: 03-20-2017 End: 05-14-2017 Pacer Clinic Vinny Root MD Start: 12-11-2016 End: 05-14-2017 Follow Up Appt 3 months Stephen Jerry Start: 12-11-2016 End: 12-21-2016 Interrogation eval remote 90 d 1/2/refrigeration mechanic lead pm Vinny Root MD Start: 12-11-2016 End: 05-14-2017 Pacer Clinic Vinny Root MD Start: 11-21-2016 End: 05-14-2017 Follow Up Appt 6 months Stephen Jerry Start: 11-21-2016 End: 05-14-2017 MM Vinny Root MD Start: 09-03-2016 End: 05-14-2017 Follow Up Appt 3 months Stephen Jerry Start: 09-03-2016 End: 09-04-2016 Interrogation eval remote 90 d 1/2/refrigeration mechanic lead pm Vinny Root MD Start: 09-03-2016 [...] End: 02-03-2016 Interrogation eval remote 90 d 1/2/refrigeration mechanic lead pm Vinny Root MD Start: 01-21-2016 End: 02-14-2016 Pacer Clinic Vinny Root MD Start: 01-02-2016 End: 02-14-2016 Follow Up Appt 3 months Stephen Jerry Start: 01-02-2016 End: 01-04-2016 Interrogation eval remote 90 d 1/2/refrigeration mechanic lead pm Vinny Root MD Start: 01-02-2016 [...] PA-C Work Phone: Start: 08-10-2015 End: 08-10-2015 LEGGER PRESS OPERATOR Amber Palafox PA-C Work Phone: Start: [...] Vinny Root MD Start: 04-17-2015 End: 04-17-2015 LEGGER PRESS OPERATOR Amber Palafox PA-C Work Phone: Start: [...] PA-C Work Phone: Start: 04-26-2014 End: 04-26-2014 LEGGER PRESS OPERATOR Amber Palafox PA-C Work Phone: Start: 04-26-2014 End: 04-26-2014 Follow Up Appt 6 months mAber Palafox PA-C Work Phone: Start: 04-11-2014 End: [...] PA-C Work Phone: Start: 03-25-2013 End: 03-25-2013 LEGGER PRESS OPERATOR Amber Palafox PA-C Work Phone: Start: 03-25-2013 End: 03-25-2013 Follow Up Appt 6 months mAber Palafox PA-C Work Phone: Start: 03-25-2013 End: [...] Hepatitis B surface antibody level LDL Cholesterol [facility] Start: 08-18-2025 Glaucoma screening Dilated Retinal Exam [facility] Start: 08-12-2025 Medicare Annual Wellness Visit Medicare Annual Wellness Visit [facility] Start: 08-09-2025 Hemoglobin A1c measurement HbA1C [facility] Start: 08-08-2025 Hepatitis B surface antibody level LDL Cholesterol [facility] Start: 06-16-2025 End: 06-16-2025 Patient encounter procedure 06/16/2025 12:40 PM EST Office Visit [facility] [place] [address] [place] [address] Albert Myers MD [address] [place] [id number] est care/3 month f/u [facility] [place] Comment on above: est care/3 month f/u Start: 06-07-2025 End: 09-06-2025 CBC panel - Blood by Automated count COMPLETE BLOOD COUNT Lab Routine Anemia, unspecified type Iron deficiency anemia, unspecified iron deficiency anemia type Expected: 06/07/2025 (Approximate), Expires: 09/06/2025 [facility] Comment on above: Expected: 06/07/2025 (Approximate), Expi res: 09/06/2025 Start: 06-07-2025 End: 09-06-2025 Comprehensive metabolic 2000 panel - Serum or Plasma COMPREHENSIVE METABOLIC PANEL Lab Routine Anemia, unspecified type Iron deficiency anemia, unspecified iron deficiency anemia type Expected: 06/07/2025 (Approximate), Expires: 09/06/2025 [facility] Work Phone: Comment on above: Expected: 06/07/2025 (Approximate), Expi res: 09/06/2025 Start: 06-07-2025 End: 09-06-2025 Hemoglobin A1c in Blood HEMOGLOBIN A1C Lab Routine Type 2 diabetes mellitus with other diabetic kidney complication, without long-term current use of insulin (HCC) Expected: 06/07/2025 (Approximate), Expires: 09/06/2025 [facility] Comment on above: Expected: 06/07/2025 (Approximate), Expi res: 09/06/2025 Start: 06-07-2025 End: 09-06-2025 Iron and Iron binding capacity panel - Serum or Plasma IRON AND TIBC Lab Routine Anemia, unspecified type Iron deficiency anemia, unspecified iron deficiency anemia type Expected: 06/07/2025 (Approximate), Expires: 09/06/2025 [facility] Comment on above: Expected: 06/07/2025 (Approximate), Expi res: 09/06/2025 Start: 06-07-2025 End: 09-06-2025 Lipid 1996 panel - Serum or Plasma LIPID PANEL, FASTING Lab Routine Hyperlipidemia, unspecified hyperlipidemia type Expected: 06/07/2025 (Approximate), Expires: 09/06/2025 [facility] Comment on above: Expected: 06/07/2025 (Approximate), Expi res: 09/06/2025 Start: 06-07-2025 End: 09-06-2025 Thyrotropin [Units/volume] in Serum or Plasma THYROID STIMULATING HORMONE Lab Routine Hypothyroidism, unspecified type Expected: 06/07/2025 (Approximate), Expires: 09/06/2025 [facility] Comment on above: Expected: 06/07/2025 (Approximate), Expi res: 09/06/2025 Start: 04-06-2025 Patient discharge [facility] Start: 04-04-2025 Provision of overbed trapeze [facility] Start: 04-04-2025 End: 04-04-2025 [facility] Start: 04-04-2025 Ambulation therapy management [facility] Start: 04-04-2025 Assessment of risk of venous thromboembolism [facility] Start: 04-04-2025 Catheterization of vein [facility] Start: 04-04-2025 Exercises [facility] Start: 04-04-2025 Following clinical pathway protocol [facility] Start: 04-04-2025 Measuring intake and output [facility] Start: 04-04-2025 Neurovascular assessment [facility] Start: 04-04-2025 Patient education [facility] Start: 04-04-2025 Procedure discontinued [facility] Start: 04-04-2025 Provision of activity privileges [facility] Start: 04-04-2025 Vital signs measurements [facility] Start: 04-04-2025 Wound care [facility] Start: 04-03-2025 Application of intermittent pneumatic compression device [facility] Start: 04-03-2025 Assessment of risk of venous thromboembolism [facility] Start: 04-03-2025 Care regimes management [facility] Start: 04-03-2025 Consultation [facility] Start: 04-03-2025 Continuous pulse oximetry [facility] Start: 04-03-2025 Inhalation therapy procedure [facility] Start: 04-03-2025 Insertion of catheter into peripheral vein [facility] Start: 04-03-2025 Measuring intake and output [facility] Start: 04-03-2025 Notification of physician [facility] Start: 04-03-2025 Providing care according to standard [facility] Start: 04-03-2025 Referral for physical therapy [facility] Start: 04-03-2025 Referral to occupational therapist [facility] Start: 04-03-2025 Referral to service [facility] Start: 04-03-2025 End: 04-03-2025 [facility] Start: 04-03-2025 Following clinical pathway protocol [facility] Start: 04-03-2025 Incentive spirometry [facility] Start: 04-03-2025 Recommendation to continue with treatment [facility] Start: 04-03-2025 Admission procedure [facility] Start: 03-13-2025 Influenza vaccination Influenza Vaccine (#1) [facility] Start: 03-07-2025 End: 03-07-2025 Patient encounter procedure 03/07/2025 2:20 PM EDT Office Visit [facility] [place] [address] [place] [address] Victor M Rocha MD [address] [place], [place] [id number] 4 week f/u weakness Family [facility] Comment on above: 4 week f/u weakness Start: 02-24-2025 End: 02-24-2025 Patient encounter procedure 02/24/2025 1:25 PM EDT Office Visit [facility] [place] [address] [facility] [place] [phone] Shara Agarwal PA-C [address] [facility] [place] [place], [place] [phone] Anemia, unspecified type [D64.9]; Positive fecal occult blood test [R19.5] [facility] [place] Comment on above: Anemia, unspecified type [D64.9]; Positi ve fecal occult blood test [R19.5] Start: 02-14-2025 End: 02-14-2025 Patient encounter procedure 02/14/2025 1:00 PM EDT Office Visit [facility] [address] [place], [place] [phone] Sharlene Cherry APRN.ACQUISITION ASSOCIATE [address] [place] [address] [facility] Hosp follow up D/C 02/10/25 SOB [facility] Comment on above: [facility] Hosp follow up D/C 02/10/25 SOB Start: 02-10-2025 Patient discharge [facility] Start: 02-10-2025 Referral to gastroenterology service [facility] Start: 02-09-2025 [facility] Start: 02-09-2025 End: 05-11-2025 CBC W Auto Differential panel - Blood COMPLETE BLOOD COUNT AND DIFFERENTIAL Lab Routine Essential hypertension, benign Type 2 diabetes mellitus with other diabetic kidney complication, without long-term current use of insulin (HCC) Expected: 02/09/2025 (Approximate), Expires: 05/11/2025 [facility] Comment on above: Expected: 02/09/2025 (Approximate), Expi res: 05/11/2025 Start: 02-09-2025 End: 05-11-2025 Comprehensive metabolic 2000 panel - Serum or Plasma COMPREHENSIVE METABOLIC PANEL Lab Routine Essential hypertension, benign Type 2 diabetes mellitus with other diabetic kidney complication, without long-term current use of insulin (HCC) Expected: 02/09/2025 (Approximate), Expires: 05/11/2025 [facility] Work Phone: Comment on above: Expected: 02/09/2025 (Approximate), Expi res: 05/11/2025 Start: 02-09-2025 End: 05-11-2025 Hemoglobin A1c in Blood HEMOGLOBIN A1C Lab Routine Type 2 diabetes mellitus with other diabetic kidney complication, without long-term current use of insulin (HCC) Expected: 02/09/2025 (Approximate), Expires: 05/11/2025 [facility] Comment on above: Expected: 02/09/2025 (Approximate), Expi res: 05/11/2025 Start: 02-09-2025 End: 05-11-2025 Lipid 1996 panel - Serum or Plasma LIPID PANEL BASIC Lab Routine Hyperlipidemia, unspecified hyperlipidemia type Type 2 diabetes mellitus with other diabetic kidney complication, without long-term current use of insulin (HCC) Expected: 02/09/2025 (Approximate), Expires: 05/11/2025 [facility] Comment on above: Expected: 02/09/2025 (Approximate), Expi res: 05/11/2025 Start: 02-09-2025 End: 05-11-2025 Thyrotropin [Units/volume] in Serum or Plasma THYROID STIMULATING HORMONE Lab Routine Hypothyroidism, unspecified type Expected: 02/09/2025 (Approximate), Expires: 05/11/2025 [facility] Comment on above: Expected: 02/09/2025 (Approximate), Expi res: 05/11/2025 Start: 02-09-2025 Referral to service [facility] Start: 02-09-2025 Speech therapy assessment [facility] Start: 02-09-2025 Following clinical pathway protocol [facility] Start: 02-08-2025 Assessment of risk of venous thromboembolism [facility] Start: 02-08-2025 Care regimes management [facility] Start: 02-08-2025 Catheterization of vein [facility] Start: 02-08-2025 Insertion of catheter into peripheral vein [facility] Start: 02-08-2025 Measuring intake and output [facility] Start: 02-08-2025 Notification of physician [facility] Start: 02-08-2025 Oxygen therapy [facility] Start: 02-08-2025 Providing care according to standard [facility] Start: 02-08-2025 Provision of activity privileges [facility] Start: 02-08-2025 Referral for physical therapy [facility] Start: 02-08-2025 Referral to occupational therapist [facility] Start: 02-08-2025 Referral to service [facility] Start: 02-08-2025 End: 02-08-2025 [facility] Start: 02-08-2025 Verification routine [facility] Start: 02-08-2025 Admission procedure [facility] Start: 02-08-2025 Hospital admission, emergency, from emergency room, medical nature [facility] Start: 02-08-2025 [facility] Start: 02-08-2025 Consultation [facility] Start: 02-06-2025 End: 05-08-2025 Comprehensive metabolic 2000 panel - Serum or Plasma [facility] Comment on above: Expected: 02/06/2025, Expires: Start: 02-06-2025 End: 05-08-2025 Hemoglobin A1c in Blood [facility] Comment on above: Expected: 02/06/2025, Expires: Start: 02-06-2025 End: 05-08-2025 LIPID PANEL, NONFASTING [facility] Comment on above: Expected: 02/06/2025, Expires: Start: 02-06-2025 End: 05-08-2025 Natriuretic peptide.B prohormone N-Terminal [Mass/volume] in Serum or Plasma [facility] Comment on above: Expected: 02/06/2025, Expires: Start: 02-06-2025 End: 05-08-2025 Thyrotropin [Units/volume] in Serum or Plasma [facility] Work Phone: Comment on above: Expected: 02/06/2025, Expires: Start: 02-06-2025 End: 05-08-2025 Urinalysis complete panel - Urine URINALYSIS (WITH MICROSCOPIC) WITH CULTURE IF INDICATED Lab Routine Generalized weakness Expected: 02/06/2025, Expires: 05/08/2025 [facility] Comment on above: Expected: 02/06/2025, Expires: Start: 02-06-2025 End: 02-06-2025 Patient encounter procedure 02/06/2025 11:00 AM EDT Office Visit [facility] [place] [address] [place] [address] Carlos House, POWERHOUSE OILER.[facility] [address] [place] [address] 6 month follow up [facility] [place] Comment on above: 6 month follow up Start: 02-05-2025 Hemoglobin A1c measurement HbA1C [facility] Start: 10-29-2024 Covid-19 Vaccine ( season) Covid-19 Vaccine () [facility] Comment on above: Postponed from 03/13/2023 (Declined at t his time) Start: 10-22-2024 Hepatitis B screening Urine Albumin:Creatinine Ratio [facility] Start: 10-22-2024 Hepatitis B surface antibody level LDL Cholesterol [facility] Start: 09-08-2024 Glaucoma screening Dilated Retinal Exam [facility] Start: 08-05-2024 End: 08-05-2024 Patient encounter procedure 08/05/2024 12:40 PM EST Office Visit [facility] [place] [address] [place], [place] [phone] Carlos House APRN.ACQUISITION ASSOCIATE [address] [place], [place] [phone] 6 month follow up [facility] [place] Comment on above: 6 month follow up Start: 08-03-2024 End: 11-02-2024 CBC panel - Blood by Automated count COMPLETE BLOOD COUNT Lab Routine Chronic diastolic CHF (congestive heart failure) (HCC) MGUS (monoclonal gammopathy of unknown significance) Iron deficiency anemia, unspecified iron deficiency anemia type Expected: 08/03/2024 (Approximate), Expires: 11/02/2024 [facility] Comment on above: Expected: 08/03/2024 (Approximate), Expi res: 11/02/2024 Start: 08-03-2024 End: 11-02-2024 Comprehensive metabolic 2000 panel - Serum or Plasma COMPREHENSIVE METABOLIC PANEL Lab Routine Hyperlipidemia, unspecified hyperlipidemia type Type 2 diabetes mellitus with other diabetic kidney complication, without long-term current use of insulin (HCC) Expected: 08/03/2024 (Approximate), Expires: 11/02/2024 [facility] Comment on above: Expected: 08/03/2024 (Approximate), Expi res: 11/02/2024 Start: 08-03-2024 End: 11-02-2024 Hemoglobin A1c in Blood HEMOGLOBIN A1C Lab Routine Type 2 diabetes mellitus with other diabetic kidney complication, without long-term current use of insulin (HCC) Expected: 08/03/2024 (Approximate), Expires: 11/02/2024 [facility] Comment on above: Expected: 08/03/2024 (Approximate), Expi res: 11/02/2024 Start: 08-03-2024 End: 11-02-2024 Lipid 1996 panel - Serum or Plasma LIPID PANEL BASIC Lab Routine Hyperlipidemia, unspecified hyperlipidemia type Expected: 08/03/2024 (Approximate), Expires: 11/02/2024 [facility] Work Phone: Comment on above: Expected: 08/03/2024 (Approximate), Expi res: 11/02/2024 Start: 08-03-2024 End: 11-02-2024 Thyrotropin [Units/volume] in Serum or Plasma THYROID STIMULATING HORMONE Lab Routine Hypothyroidism, unspecified type Expected: 08/03/2024 (Approximate), Expires: 11/02/2024 [facility] Comment on above: Expected: 08/03/2024 (Approximate), Expi res: 11/02/2024 Start: 07-29-2024 Hemoglobin A1c measurement HbA1C [facility] Start: 04-28-2024 Shingrix Vaccine (1 of 2) Shingrix Vaccine (1 of 2) [facility] Comment on above: Postponed from 1989 (Declined at t his time) Start: 04-23-2024 Hemoglobin A1c measurement HbA1C [facility] Start: 04-21-2024 Hepatitis B surface antibody level LDL Cholesterol [facility] Start: 04-18-2024 End: 04-18-2024 Patient encounter procedure Mobile PET CT Comment on above: MGUS (monoclonal gammopathy of unknown s ignificance) [D47.2]; Compression fracture of thoracic vertebra, unspecified thoracic vertebral level, initial encounter ([facility]) [S22.000A]; Lytic bone lesions on xray [M89.9] Start: 04-14-2024 End: 04-14-2024 ambulatory [facility] Comment on above: CBC* CBC/BMBX/PBSX2* Start: 04-06-2024 End: 04-06-2024 Patient encounter procedure 04/06/2024 11:40 AM EDT Office Visit [facility] [place] [address] [place] [address] Yovana Painter APRN.ACQUISITION ASSOCIATE [address] [place] [address] 03/[address] [facility] for CHF [facility] [place] Comment on above: 03/[address] [facility] for CHF Start: 04-01-2024 End: 04-01-2024 ambulatory 04/01/2024 8:40 AM EDT Visit (SP) Office Hematology/Oncology [address] [place] [address] Elizabet Baker, [address] [place] [address] OV* Hematology/Oncology Comment on above: OV* Start: 03-25-2024 End: 03-25-2024 ambulatory 03/25/2024 9:20 AM EDT Visit (SP) Office Hematology/Oncology [address] [place] [address] Elizabet Baker, DO [address] [place] [address] OV/CT 03/12* Hematology/Oncology Comment on above: OV/CT 03/12* Start: 03-13-2024 Covid-19 Vaccine ( season) Covid-19 Vaccine ( season) [facility] Start: 03-13-2024 Covid-19 Vaccine ( season) Covid-19 Vaccine ( season) [facility] Start: 03-13-2024 Influenza vaccination Influenza Vaccine (#1) [facility] Start: 03-12-2024 End: 03-12-2024 Patient encounter procedure 03/12/2024 3:30 PM EDT Appointment Radiology CT Scan [address] [place] [address] MGUS (monoclonal gammopathy of unknown significance) [D47.2] Radiology CT Scan Comment on above: MGUS (monoclonal gammopathy of unknown s ignificance) [D47.2] Start: 02-26-2024 End: 02-26-2024 ambulatory 02/26/2024 11:00 AM EDT Visit (SP) Office Hematology/Oncology [address] [place] [address] Elizabet Baker DO [address] [place] [address] 2 MO OV/LABS 02/23* Hematology/Oncology Comment on above: 2 MO OV/LABS 02/23* Start: 02-24-2024 End: 02-24-2024 ambulatory 02/24/2024 11:00 AM EDT Results Only [place] [facility] [address] [place] [address] CBC/CMP/IRON STUDIES* [facility] Comment on above: CBC/CMP/IRON STUDIES* Start: 02-01-2024 End: 02-01-2024 Patient encounter procedure 02/01/2024 12:40 PM EDT Office Visit Family [facility] [address] [place] [address] Victor M Rocha MD [address] [place] [address] 3 month follow up [facility] [place] Comment on above: 3 month follow up Start: 01-29-2024 End: 04-29-2024 Basic metabolic 2000 panel - Serum or Plasma BASIC METABOLIC PANEL Lab Routine Type 2 diabetes mellitus with other diabetic kidney complication, without long-term current use of insulin (HCC) Expected: 01/29/2024 (Approximate), Expires: 04/29/2024 [facility] Work Phone: Comment on above: Expected: 01/29/2024 (Approximate), Expi res: 04/29/2024 Start: 01-29-2024 End: 04-29-2024 CBC W Auto Differential panel - Blood COMPLETE BLOOD COUNT AND DIFFERENTIAL Lab Routine MGUS (monoclonal gammopathy of unknown significance) Iron deficiency anemia, unspecified iron deficiency anemia type Fatigue, unspecified type Generalized weakness SOB (shortness of breath) Expected: 01/29/2024 (Approximate), Expires: 04/29/2024 [facility] Work Phone: Comment on above: Expected: 01/29/2024 (Approximate), Expi res: 04/29/2024 Start: 01-29-2024 End: 04-29-2024 Hemoglobin A1c in Blood HEMOGLOBIN A1C Lab Routine Type 2 diabetes mellitus with other diabetic kidney complication, without long-term current use of insulin (HCC) Expected: 01/29/2024 (Approximate), Expires: 04/29/2024 [facility] Work Phone: Comment on above: Expected: 01/29/2024 (Approximate), Expi res: 04/29/2024 Start: 01-29-2024 End: 04-29-2024 Thyrotropin [Units/volume] in Serum or Plasma THYROID STIMULATING HORMONE Lab Routine Hypothyroidism, unspecified type Expected: 01/29/2024 (Approximate), Expires: 04/29/2024 [facility] Work Phone: Comment on above: Expected: 01/29/2024 (Approximate), Expi res: 04/29/2024 Start: 12-24-2023 End: 12-24-2023 Patient encounter procedure 12/24/2023 3:40 PM EDT Office Visit [facility] [place] [address] [place] [address] Victor M Rocha MD [address] [facility] [place] [phone] Hospital follow up, [facility] 12/16/23 [facility] [place] Comment on above: Hospital follow up, [facility] 12/16/23 CHF Start: 12-14-2023 End: 12-14-2023 ambulatory [place] [facility] Comment on above: CBC/RETIC/IRON STUDIES* CBC/RETIC/IRON STUDI ES/IRON SUCROSE/D5-5/MDCR* Start: 12-11-2023 End: 12-11-2023 ambulatory 12/11/2023 2:30 PM EDT Infusion Center Hematology/Oncology [address] [place] [address] IRON SUCROSE/D4-5/MDCR* Hematology/Oncology Comment on above: IRON SUCROSE/D4-5/MDCR* Start: 12-09-2023 End: 12-09-2023 ambulatory 12/09/2023 1:30 PM EDT Infusion Center Hematology/Oncology [address] [place] [address] IRON SUCROSE/D3-5/MDCR* Hematology/Oncology Comment on above: IRON SUCROSE/D3-5/MDCR* Start: 12-02-2023 End: 12-02-2023 ambulatory 12/02/2023 2:00 PM EDT Infusion Center Hematology/Oncology [address] [place] [address] IRON SUCROSE/D2-5/MDCR* Hematology/Oncology Comment on above: IRON SUCROSE/D2-5/MDCR* Start: 11-26-2023 End: 11-26-2023 ambulatory 11/26/2023 3:30 PM EDT Infusion Center Hematology/Oncology [address] [place] [address] START IRON SUCROSE/D1-5/MDCR* Hematology/Oncology Comment on above: START IRON SUCROSE/D1-5/MDCR* Start: 11-17-2023 End: 02-16-2024 MONOCLONAL PROTEIN, SERUM (BLOOD) [facility] Comment on above: Expected: 11/17/2023, Expires: Start: 11-17-2023 End: 02-16-2024 PROTEIN ELECTROPHORESIS SERUM W/INTERP [facility] Work Phone: Comment on above: Expected: 11/17/2023, Expires: Start: 10-28-2023 End: 01-27-2024 ALBUMIN/CREAT RATIO RND UR ALBUMIN/CREAT RATIO RND UR Lab Routine Type 2 diabetes mellitus with other diabetic kidney complication, without long-term current use of insulin (HCC) Expected: 10/28/2023 (Approximate), Expires: 01/27/2024 [facility] Work Phone: Comment on above: Expected: 10/28/2023 (Approximate), Expi res: 01/27/2024 Start: 10-28-2023 End: 01-27-2024 CBC W Auto Differential panel - Blood CBC + DIFF Lab Routine Iron deficiency anemia, unspecified iron deficiency anemia type Expected: 10/28/2023 (Approximate), Expires: 01/27/2024 [facility] Work Phone: Comment on above: Expected: 10/28/2023 (Approximate), Expi res: 01/27/2024 Start: 10-28-2023 End: 01-27-2024 Comprehensive metabolic 2000 panel - Serum or Plasma COMP METABOLIC PANEL Lab Routine Essential hypertension, benign Hyperlipidemia, unspecified hyperlipidemia type Type 2 diabetes mellitus with other diabetic kidney complication, without long-term current use of insulin (HCC) Stage 3a chronic kidney disease (HCC) Expected: 10/28/2023 (Approximate), Expires: 01/27/2024 [facility] Work Phone: Comment on above: Expected: 10/28/2023 (Approximate), Expi res: 01/27/2024 Start: 10-28-2023 End: 01-27-2024 Hemoglobin A1c in Blood HGB A1C Lab Routine Type 2 diabetes mellitus with other diabetic kidney complication, without long-term current use of insulin (HCC) Expected: 10/28/2023 (Approximate), Expires: 01/27/2024 [facility] Work Phone: Comment on above: Expected: 10/28/2023 (Approximate), Expi res: 01/27/2024 Start: 10-28-2023 End: 01-27-2024 Lipid 1996 panel - Serum or Plasma LIPID PANEL BASIC Lab Routine Essential hypertension, benign Hyperlipidemia, unspecified hyperlipidemia type Type 2 diabetes mellitus with other diabetic kidney complication, without long-term current use of insulin (HCC) Expected: 10/28/2023 (Approximate), Expires: 01/27/2024 [facility] Work Phone: Comment on above: Expected: 10/28/2023 (Approximate), Expi res: 01/27/2024 Start: 10-28-2023 End: 01-27-2024 Thyrotropin [Units/volume] in Serum or Plasma TSH BLD Lab Routine Hypothyroidism, unspecified type Expected: 10/28/2023 (Approximate), Expires: 01/27/2024 [facility] Work Phone: Comment on above: Expected: 10/28/2023 (Approximate), Expi res: 01/27/2024 Start: 10-21-2023 Hemoglobin A1c measurement HbA1C [facility] Start: 10-21-2023 Hemoglobin A1c/Hemoglobin.total in Blood HbA1C [facility] Start: 10-18-2023 Hepatitis B surface antibody level LDL CHOLESTEROL [facility] Start: 09-09-2023 End: 11-09-2023 CBC W Auto Differential panel - Blood CBC + DIFF Lab Routine MGUS (monoclonal gammopathy of unknown significance) Expected: 09/09/2023, Expires: 11/09/2023 [facility] Work Phone: Comment on above: Expected: 09/09/2023, Expires: Start: 09-09-2023 End: 11-09-2023 Comprehensive metabolic 2000 panel - Serum or Plasma COMP METABOLIC PANEL Lab Routine MGUS (monoclonal gammopathy of unknown significance) Expected: 09/09/2023, Expires: 11/09/2023 [facility] Work Phone: Comment on above: Expected: 09/09/2023, Expires: Start: 09-09-2023 End: 11-09-2023 [place],FREE,SER [place]PA/[place],FREE,SER Lab Routine MGUS (monoclonal gammopathy of unknown significance) Expected: 09/09/2023, Expires: 11/09/2023 [facility] Work Phone: Comment on above: Expected: 09/09/2023, Expires: Start: 09-09-2023 End: 11-09-2023 PROT, TOT AND PROT ELECTRO W/ IMMUNOFIX PROT, TOT AND PROT ELECTRO W/ IMMUNOFIX Lab Routine MGUS (monoclonal gammopathy of unknown significance) Expected: 09/09/2023, Expires: 11/09/2023 [facility] Work Phone: Comment on above: Expected: 09/09/2023, Expires: Start: 07-13-2023 Advance Directive Discussion Advance Directive Discussion [facility] Start: 06-15-2023 End: 06-15-2023 [facility] Start: 05-15-2023 Glaucoma screening Dilated Retinal Exam [facility] Start: 05-15-2023 Hepatitis C antibody, confirmatory test DILATED RETINAL EXAM [facility] Start: 04-25-2023 End: 06-25-2023 CBC panel - Blood by Automated count CBC Lab Routine Essential hypertension, benign Iron deficiency anemia, unspecified iron deficiency anemia type Expected: 04/25/2023 (Approximate), Expires: 06/25/2023 [facility] Work Phone: Comment on above: Expected: 04/25/2023 (Approximate), Expi res: 06/25/2023 Start: 04-25-2023 End: 06-25-2023 Comprehensive metabolic 2000 panel - Serum or Plasma COMP METABOLIC PANEL Lab Routine Hyperlipidemia, unspecified hyperlipidemia type Essential hypertension, benign Type 2 diabetes mellitus with other diabetic kidney complication, without long-term current use of insulin (HCC) Expected: 04/25/2023 (Approximate), Expires: 06/25/2023 [facility] Work Phone: Comment on above: Expected: 04/25/2023 (Approximate), Expi res: 06/25/2023 Start: 04-25-2023 End: 06-25-2023 Hemoglobin A1c in Blood HGB A1C Lab Routine Type 2 diabetes mellitus with other diabetic kidney complication, without long-term current use of insulin (HCC) Expected: 04/25/2023 (Approximate), Expires: 06/25/2023 [facility] Work Phone: Comment on above: Expected: 04/25/2023 (Approximate), Expi res: 06/25/2023 Start: 04-25-2023 End: 06-25-2023 Lipid 1996 panel - Serum or Plasma LIPID PANEL BASIC Lab Routine Hyperlipidemia, unspecified hyperlipidemia type Essential hypertension, benign Type 2 diabetes mellitus with other diabetic kidney complication, without long-term current use of insulin (HCC) Expected: 04/25/2023 (Approximate), Expires: 06/25/2023 [facility] Work Phone: Comment on above: Expected: 04/25/2023 (Approximate), Expi res: 06/25/2023 Start: 04-25-2023 End: 06-25-2023 Thyrotropin [Units/volume] in Serum or Plasma TSH BLD Lab Routine Hypothyroidism, unspecified type Expected: 04/25/2023 (Approximate), Expires: 06/25/2023 [facility] Work Phone: Comment on above: Expected: 04/25/2023 (Approximate), Expi res: 06/25/2023 Start: 04-17-2023 Hepatitis B surface antibody level LDL CHOLESTEROL [facility] Start: 03-13-2023 Covid-19 Vaccine () Covid-19 Vaccine () [facility] Start: 01-16-2023 Hemoglobin A1c/Hemoglobin.total in Blood HBA1C [facility] Start: 01-10-2023 Hepatitis B screening URINE ALBUMIN:CREATININE RATIO [facility] Start: 09-27-2022 Hepatitis B surface antibody level LDL CHOLESTEROL [facility] Start: 07-18-2022 Hemoglobin A1c/Hemoglobin.total in Blood HBA1C [facility] Start: 07-13-2022 ADVANCE DIRECTIVE DISCUSSION ADVANCE DIRECTIVE DISCUSSION [facility] Start: 05-17-2022 COVID-19 VACCINE (4 - Booster for Pfizer series) COVID-19 VACCINE (4 - Booster for Pfizer series) [facility] Start: 04-16-2022 End: 06-16-2022 Comprehensive metabolic 2000 panel - Serum or Plasma COMP METABOLIC PANEL Lab Routine Hyperlipidemia, unspecified hyperlipidemia type 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 Expected: 04/16/2022 (Approximate), Expires: 06/16/2022 [facility] Work Phone: Comment on above: Expected: 04/16/2022 (Approximate), Expi res: 06/16/2022 Start: 04-16-2022 End: 06-16-2022 Hemoglobin A1c in Blood HGB A1C Lab Routine Type 2 diabetes mellitus with other diabetic kidney complication, without long-term current use of insulin (HCC) Expected: 04/16/2022 (Approximate), Expires: 06/16/2022 [facility] Work Phone: Comment on above: Expected: 04/16/2022 (Approximate), Expi res: 06/16/2022 Start: 04-16-2022 End: 06-16-2022 Lipid 1996 panel - Serum or Plasma LIPID PANEL BASIC Lab Routine Hyperlipidemia, unspecified hyperlipidemia type 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 Expected: 04/16/2022 (Approximate), Expires: 06/16/2022 [facility] Work Phone: Comment on above: Expected: 04/16/2022 (Approximate), Expi res: 06/16/2022 Start: 04-16-2022 End: 06-16-2022 Thyrotropin [Units/volume] in Serum or Plasma TSH BLD Lab Routine Hypothyroidism, unspecified type Expected: 04/16/2022 (Approximate), Expires: 06/16/2022 [facility] Work Phone: Comment on above: Expected: 04/16/2022 (Approximate), Expi res: 06/16/2022 Start: 04-12-2022 Hemoglobin A1c/Hemoglobin.total in Blood HBA1C [facility] Start: 03-13-2022 Influenza vaccination INFLUENZA (#1) [facility] Start: 03-11-2022 COVID-19 VACCINE (4 - Booster for Pfizer series) COVID-19 VACCINE (4 - Booster for Pfizer series) [facility] Start: 01-10-2022 End: 03-12-2022 ALBUMIN/CREAT RATIO RND UR ALBUMIN/CREAT RATIO RND UR Lab Routine Type 2 diabetes mellitus with other diabetic kidney complication, without long-term current use of insulin (HCC) Expected: 01/10/2022 (Approximate), Expires: 03/12/2022 [facility] Work Phone: Comment on above: Expected: 01/10/2022 (Approximate), Expi res: 03/12/2022 Start: 01-10-2022 End: 03-12-2022 Basic metabolic 2000 panel - Serum or Plasma BASIC METABOLIC PNL Lab Routine Type 2 diabetes mellitus with other diabetic kidney complication, without long-term current use of insulin (HCC) Expected: 01/10/2022 (Approximate), Expires: 03/12/2022 [facility] Work Phone: Comment on above: Expected: 01/10/2022 (Approximate), Expi res: 03/12/2022 Start: 01-10-2022 End: 03-12-2022 Hemoglobin A1c/Hemoglobin.total in Blood HGB A1C Lab Routine Type 2 diabetes mellitus with other diabetic kidney complication, without long-term current use of insulin (HCC) Expected: 01/10/2022 (Approximate), Expires: 03/12/2022 [facility] Work Phone: Comment on above: Expected: 01/10/2022 (Approximate), Expi res: 03/12/2022 Start: 12-28-2021 Hemoglobin A1c/Hemoglobin.total in Blood HBA1C [facility] Start: 10-22-2021 Hepatitis C antibody, confirmatory test DILATED RETINAL EXAM [facility] Start: 09-17-2021 3 comp foot exam completed DIABETIC FOOT EXAM [facility] Start: 09-17-2021 Diabetic foot examination Diabetic Foot Exam [facility] Start: 09-14-2021 Hepatitis B screening URINE ALBUMIN:CREATININE RATIO [facility] Start: 02-03-2021 COVID-19 VACCINE (3 - Booster for Pfizer series) COVID-19 VACCINE (3 - Booster for Pfizer series) [facility] Start: 10-04-2018 Urine microalbumin profile [facility] Start: 12-03-2017 End: 12-03-2017 Appointment Appointment [facility] Work Phone: Start: 06-26-2017 End: 06-26-2017 Appointment Appointment [facility] Work Phone: Start: 05-26-2017 End: 05-26-2017 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 [facility] Work Phone: Start: [...] 03-20-2017 End: 05-14-2017 Pacer Clinic Pac[facility] Work Phone: Start: 12-11-2016 End: 05-14-2017 Follow Up Appt 3 months Follow Up Appt 3 months [facility] Work Phone: Start: 12-11-2016 End: 05-14-2017 Pacer Clinic Pac[facility] Clinic [facility] Work Phone: Start: 11-21-2016 End: 05-14-2017 Follow Up Appt 6 months Follow Up Appt 6 months [facility] Work Phone: Start: 11-21-2016 End: 05-14-2017 MMM MMM [facility] Work Phone: Start: 09-03-2016 End: 05-14-2017 Follow Up Appt 3 months Follow Up Appt 3 months [facility] Work Phone: Start: 09-03-2016 End: 05-14-2017 Pacer Clinic Pacer Clinic [facility] Work Phone: Start: 08-18-2016 End: [...] 6 months Follow Up Appt 6 months [facility] Work Phone: Start: 05-15-2016 End: 05-15-2016 MMM MMM [facility] Work Phone: Start: 04-22-2016 End: 08-07-2016 Follow Up Appt 1 month Follow Up Appt 1 month [facility] Work Phone: Start: 04-22-2016 End: 08-07-2016 Pacer Clinic Pacer Clinic [facility] Work Phone: Start: 04-03-2016 End: 04-04-2016 *BMP *BMP [facility] Work Phone: Start: 02-19-2016 End: 02-19-2016 Follow Up Appt 6 months Follow Up Appt 6 months [facility] Work Phone: Start: 02-19-2016 End: 02-19-2016 MMM MMM [facility] Work Phone: Start: 02-12-2016 End: [...] 3 months Follow Up Appt 3 months [facility] Work Phone: Start: 01-21-2016 End: 02-14-2016 Pacer Clinic Pacer Clinic [facility] Work Phone: Start: 01-02-2016 End: 02-14-2016 Follow Up Appt 3 months Follow Up Appt 3 months [facility] Work Phone: Start: 01-02-2016 End: 02-14-2016 Pacer Clinic [facility] Clinic [facility] Work Phone: Start: 11-10-2015 End: 11-12-2015 Thyroid stimulating hormone (TSH) *TSH [facility] Work Phone: Start: 11-10-2015 End: [...] 3 months Follow Up Appt 3 months [facility] Work Phone: Start: 10-29-2015 End: 02-14-2016 Pacer Clinic [facility] Work Phone: Start: 09-26-2015 End: 09-26-2015 *BMP *BMP [facility] Work Phone: Start: 09-26-2015 End: 09-26-2015 *CBC with Differential *CBC with Differential [facility] Work Phone: Start: 09-26-2015 End: 09-26-2015 BNP *Brain Natriuretic Peptide BNP [facility] Work Phone: Start: 09-26-2015 End: 02-14-2016 Chest x-ray X-Ray, Chest, PA & Lateral [facility] Work Phone: Start: 09-26-2015 End: 02-14-2016 Follow Up Appt 3 months Follow Up Appt 3 months [facility] Work Phone: Start: 09-26-2015 End: 09-26-2015 Follow Up Appt Other Follow Up Appt Other [facility] Work Phone: Start: 09-26-2015 End: 02-14-2016 Pacer Clinic Pacer Clinic [facility] Work Phone: Start: 09-25-2015 End: 09-25-2015 Thyroid stimulating hormone (TSH) *TSH [facility] Work Phone: Start: 09-25-2015 End: 09-25-2015 Thyroxine (T4) *T4 (Total) [facility] Work Phone: Start: 08-13-2015 End: 08-15-2015 *Hepatic Function Panel *Hepatic Function Panel [facility] Work Phone: Start: 08-13-2015 End: 08-15-2015 Lipid panel [AGGREGATE] *Lipid Profile CC PCP [facility] Work Phone: Start: 08-10-2015 End: 08-14-2015 *BMP *BMP [facility] Work Phone: Start: 08-10-2015 End: 08-14-2015 *Hepatic Function Panel *Hepatic Function Panel [facility] Work Phone: Start: 08-10-2015 End: 08-10-2015 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 [facility] Work Phone: Start: 08-10-2015 End: 08-10-2015 Follow Up Appt 6 months Follow Up Appt 6 months [facility] Work Phone: Start: 08-10-2015 End: 08-14-2015 Lipid panel [AGGREGATE] *Lipid Profile CC PCP [facility] Work Phone: Start: 08-10-2015 End: 08-10-2015 Pulmonary Function Test - complete Pulmonary Function Test - complete [facility] Work Phone: Start: 08-10-2015 End: 08-14-2015 Thyroid stimulating hormone (TSH) *TSH [facility] Work Phone: Start: 08-10-2015 End: 08-14-2015 Thyroxine (T4) *T4 (Total) [facility] Work Phone: Start: 06-15-2015 End: 07-26-2015 Follow Up Appt 3 months Follow Up Appt 3 months [facility] Work Phone: Start: 06-15-2015 End: 07-26-2015 Pacer Clinic Pacer Clinic [facility] Work Phone: Start: 05-08-2015 End: 07-26-2015 Follow Up Appt 3 months Follow Up Appt 3 months [facility] Work Phone: Start: 05-08-2015 End: 07-26-2015 MMM MMM [facility] Work Phone: Start: 04-30-2015 End: 04-30-2015 Arterial exam Arterial exam [facility] Work Phone: Start: 04-30-2015 End: 07-26-2015 Follow Up Appt 1 month Follow Up Appt 1 month [facility] Work Phone: Start: 04-30-2015 End: 07-26-2015 Pacer Clinic Pacer Clinic [facility] Work Phone: Start: 04-30-2015 End: 04-30-2015 Venous doppler Venous doppler [facility] Work Phone: Start: 04-17-2015 End: 04-17-2015 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 [facility] Work Phone: Start: 04-17-2015 End: 04-17-2015 Follow Up Appt 1 month Follow Up Appt 1 month [facility] Work Phone: Start: 03-20-2015 End: 03-20-2015 *BMP *BMP [facility] Work Phone: Start: 03-20-2015 End: 03-20-2015 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 [facility] Work Phone: Start: 03-20-2015 End: 03-20-2015 Ecg routine ecg w/least 12 lds w/i&r EKG (In office) [facility] Work Phone: Start: 03-20-2015 End: 03-20-2015 Follow Up Appt 6 months Follow Up Appt 6 months [facility] Work Phone: Start: 03-20-2015 End: 03-20-2015 Magnesium *Magnesium [facility] Work Phone: Start: 03-20-2015 End: 03-20-2015 Thyroid stimulating hormone (TSH) *TSH [facility] Work Phone: Start: 11-17-2014 End: 02-13-2015 *CBC with Differential *CBC with Differential [facility] Work Phone: Start: 11-17-2014 End: 02-13-2015 *Hepatic Function Panel *Hepatic Function Panel [facility] Work Phone: Start: 11-17-2014 End: 11-17-2014 Follow Up Appt 4 months Follow Up Appt 4 months [facility] Work Phone: Start: 11-17-2014 End: 02-13-2015 Lipid panel [AGGREGATE] *Lipid Profile CC PCP [facility] Work Phone: Start: 11-17-2014 End: 11-17-2014 MMM MMM [facility] Work Phone: Start: 11-09-2014 End: 11-15-2014 *Hepatic Function Panel *Hepatic Function Panel [facility] Work Phone: Start: 11-09-2014 End: 11-09-2014 Follow Up Appt 6 months Follow Up Appt 6 months [facility] Work Phone: Start: 11-09-2014 End: 11-15-2014 Lipid panel [AGGREGATE] *Lipid Profile CC PCP [facility] Work Phone: Start: 11-09-2014 End: 11-09-2014 MMM MMM [facility] Work Phone: Start: 08-11-2014 End: 02-13-2015 *Hepatic Function Panel *Hepatic Function Panel [facility] Work Phone: Start: 08-11-2014 End: 02-13-2015 Lipid panel [AGGREGATE] *Lipid Profile CC PCP [facility] Work Phone: Start: 2014 RSV Vaccine (1 - 1-dose 75+ series) RSV Vaccine (1 - 1-dose 75+ series) [facility] Start: 05-12-2014 End: 05-26-2014 *BMP *BMP [facility] Work Phone: Start: 04-26-2014 End: 04-26-2014 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 [facility] [employer] Work Phone: Start: 04-26-2014 End: 04-26-2014 Follow [...] 01-09-2014 *Hepatic Function Panel *Hepatic Function Panel [facility] Work Phone: Start: 01-09-2014 End: 01-09-2014 Lipid panel [AGGREGATE] *Lipid Profile CC PCP [facility] Work Phone: Start: 10-25-2013 End: [...] 07-29-2013 *Hepatic Function Panel *Hepatic Function Panel [facility] Work Phone: Start: 07-18-2013 End: 07-29-2013 Lipid panel [AGGREGATE] *Lipid Profile CC PCP [facility] Work Phone: Start: 07-11-2013 End: 07-11-2013 *Hepatic Function Panel *Hepatic Function Panel [facility] Work Phone: Start: 06-03-2013 End: 06-01-2013 *Hepatic Function Panel *Hepatic Function Panel [facility] Work Phone: Start: 03-25-2013 End: 05-04-2013 *Hepatic Function Panel *Hepatic Function Panel [facility] Work Phone: Start: 03-25-2013 End: 03-25-2013 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 [facility] Work Phone: Start: 03-25-2013 End: 03-25-2013 Follow Up Appt 6 months Follow Up Appt 6 months [facility] Work Phone: Start: 03-25-2013 End: 05-04-2013 Lipid panel [AGGREGATE] *Lipid Profile CC PCP [facility] Work Phone: Start: 03-21-2013 End: 03-21-2013 *Hepatic Function Panel *Hepatic Function Panel [facility] Work Phone: Start: 03-21-2013 End: 03-25-2013 Lipid panel [AGGREGATE] *Lipid Profile CC PCP [facility] Work Phone: Start: 12-13-2012 End: 12-13-2012 *Hepatic Function Panel *Hepatic Function Panel [facility] Work Phone: Start: 11-10-2012 End: 11-10-2012 *Hepatic Function Panel *Hepatic Function Panel [facility] Work Phone: Start: 11-10-2012 End: 11-10-2012 Lipid panel [AGGREGATE] *Lipid Profile [facility] Work Phone: Start: 09-07-2012 [...] Follow Up Appt 6 months [facility] [employer] Work Phone: Start: 03-10-2012 End: 03-10-2012 Nuclear stress test -exercise Nuclear stress test -exercise [facility] Work Phone: Start: 08-12-2011 End: 08-12-2011 Follow Up Appt 6 months Follow Up Appt 6 months [facility] [employer] Work Phone: Start: 10-30-2010 Screening for osteoporosis Bone Density Screening [facility] Start: 1999 Hepatitis B Vaccine (1 of 3 - Risk 3-dose series) Hepatitis B Vaccine (1 of 3 - Risk 3-dose series) [facility] Start: 1999 RSV Vaccine (1 - 1-dose 60+ series) RSV Vaccine (1 - 1-dose 60+ series) [facility] Start: 1989 SHINGRIX VACCINE (1 of 2) SHINGRIX VACCINE (1 of 2) [facility] Start: 1957 Anxiety Screening Anxiety Screening [facility] Bacteria identified in Urine by Culture URINE CULTURE Microbiology Routine Urinary frequency 06/05/2023 3:52 PM EST [facility] Work Phone: Bacteria identified in Urine by Culture URINE CULTURE Microbiology Routine Urgency of urination Ordered: 01/15/2024 [facility] Work Phone: Comment on above: Ordered: 01/15/2024 Bilirubin measuremen t, urine [facility] Cholesterol [Mass/volume] in Serum or Plasma [facility] Cholesterol in HDL [Mass/volume] in Serum or Plasma [facility] End: 03-27-[address] WHOLE BODY SKULL TO KNEE WO IVCON Radiology Routine MGUS (monoclonal gammopathy of unknown significance) 1 Occurrences starting 02/26/2024 until 03/27/2025 [facility] Work Phone: Comment on above: 1 Occurrences starting 02/26/2024 until 03/27/[address] WHOLE BODY SK ULL TO KNEE WO IVCON Radiology Routine MGUS (monoclonal gammopathy of unknown significance) 03/12/2024 4:08 PM EDT [facility] Work Phone: ECG COMPLETE [facility] Comment on above: Ordered: 02/06/2025 Glucose [Mass/volume ] in Serum or Plasma GLUCOSE, BLOOD (POC) Lab Routine Glucosuria Ordered: 06/05/2023 [facility] Work Phone: Comment on above: Ordered: 06/05/2023 Hemoglobin [Presence ] in Urine [facility] Low density lipoprot ein cholesterol measurement [facility] Measurement of k[place] in urine using dipstick [facility] Microscopic urinalysis [facility] End: 05-01-2025 MR Skull base WO and W contrast IV MRI SKULL BASE WO/W IVCON Radiology Routine MGUS (monoclonal gammopathy of unknown significance) Compression fracture of thoracic vertebra, unspecified thoracic vertebral level, initial encounter (HCC) Lytic bone lesions on xray 1 Occurrences starting 04/01/2024 until 05/01/2025 [facility] Comment on above: 1 Occurrences starting 04/01/2024 until 05/01/2025 Patient Education [facility] Work Phone: Patient referral [facility] Work Phone: End: 05-01-2025 PET+CT Whole body Bone W [id number] IV NM PET/CT WHOLE BODY INITIAL Radiology Routine MGUS (monoclonal gammopathy of unknown significance) Compression fracture of thoracic vertebra, unspecified thoracic vertebral level, initial encounter (HCC) Lytic bone lesions on xray 1 Occurrences starting 04/01/2024 until 05/01/2025 [facility] Work Phone: Comment on above: 1 Occurrences starting 04/01/2024 until 05/01/2025 pH of Urine [facility] Specific gravity of Urine [facility] Total cholesterol:HD L ratio measurement [facility] Triglycerides measurement [facility] Troponin T.cardiac [Mass/volume] in Serum or Plasma by High sensitivity method [facility] Urine blood test [facility] Urine dipstick for glucose [facility] Urine dipstick for leukocyte esterase [facility] Urine dipstick for nitrite [facility] Urine dipstick for protein [facility] Urine examination [facility] Urine microscopy: epithelial cells [facility] Urine Microscopy: wh ite cells [facility] Urobilinogen [Presen ce] in Urine [facility] US Heart [facility] [facility] VLDL cholesterol measurement [facility] End: 03-27-2025 XR Bones Complete Survey Views XR BONE SURVEY ROUTINE Radiology Routine MGUS (monoclonal gammopathy of unknown significance) 1 Occurrences starting 02/26/2024 until 03/27/2025 [facility] Comment on above: 1 Occurrences starting 02/26/2024 until 03/27/2025 XR Bones Complete Burgos rvey Views XR BONE SURVEY ROUTINE Radiology Routine MGUS (monoclonal gammopathy of unknown significance) 02/26/2024 12:28 PM EDT [facility] Immunizations Immunization Date Immunization Notes Care Provider [facility] 03-26-2024 influenza, high dose seasonal, preservative-free Dr. Victor M Rocha MD Work Phone: [facility] 03-26-2024 influenza virus vacc ine, unspecified formulation Prema Sampson RN [facility] 04-28-2023 influenza (HD-IIV4) vaccine, age 65+ yr, high dose, quadrivalent, PF (FLUZONE HIGH-DOSE) Victor M Rocha MD Work Phone: [facility] 04-28-2023 influenza virus vacc ine, unspecified formulation Daniel Bucio MD Work Phone: [facility] 04-24-2022 influenza, high-dose , quadrivalent vaccine (FLUZONE HIGH DOSE QUADRIVALENT) Victor M Rocha MD Work Phone: [facility] 01-14-2022 COVID-19 vaccine, ag e 12+ yr (PFIZER-BIONTECH - BRIDGES TOP) Victor M Rocha MD Work Phone: [facility] 04-11-2021 influenza, high-dose , quadrivalent vaccine (FLUZONE HIGH DOSE QUADRIVALENT) Victor M Rocha MD Work Phone: [facility] 09-06-2020 COVID-19 vaccine, ag e 12+ yr (PFIZER-BIONTECH - PURPLE TOP) Victor M Rocha MD Work Phone: [facility] Work Phone: 08-16-2020 COVID-19 vaccine, ag e 12+ yr (PFIZER-BIONTECH - PURPLE TOP) Victor M Rocha MD Work Phone: [facility] Work Phone: 06-01-2020 influenza, high-dose , quadrivalent vaccine (FLUZONE HIGH DOSE QUADRIVALENT) Victor M Rocha MD Work Phone: [facility] Work Phone: 03-29-2019 influenza, high dose seasonal, preservative-free Victor M Rocha MD Work Phone: [facility] 05-28-2018 influenza, high dose seasonal, preservative-free Victor M Rocha MD Work Phone: [facility] Work Phone: 04-13-2017 influenza, high dose seasonal, preservative-free Victor M Rocha MD Work Phone: [facility] 03-26-2016 influenza, high dose seasonal, preservative-free Victor M Rocha MD Work Phone: [facility] 09-18-2015 pneumococcal conjuga te vaccine, 13 valent Victor M Rocha MD Work Phone: [facility] 03-29-2014 influenza, high dose seasonal, preservative-free Victor M Rocha MD Work Phone: [facility] Work Phone: 05-13-2013 influenza virus vacc ine, unspecified formulation Victor M Rocha MD Work Phone: [facility] Work Phone: 05-11-[address] Victor M Rocha Work Phone: [facility] 06-23-2012 influenza virus vacc ine, unspecified formulation Victor M Rocha MD Work Phone: [facility] 05-12-2011 influenza virus vacc ine, unspecified formulation Victor M Rocha MD Work Phone: [facility] Work Phone: 10-04-2008 pneumococcal polysaccharide vaccine, 23 valent Victor M Rocha MD Work Phone: [facility] 10-04-2008 tetanus toxoid, redu sharifa diphtheria toxoid, and acellular pertussis vaccine, adsorbed Victor M Rocha MD Work Phone: [facility] 08-18-2005 pneumococcal polysaccharide vaccine, 23 valent Victor M Rocha MD Work Phone: [facility] 08-18-[address] Xiomy Rocha Work Phone: [facility] Work Phone: 08-18-2005 pneumococcal vaccine , unspecified formulation Dr. Victor M Rocha Work Phone: [facility] Payers Date Payer Category Payer Self-pay [id number] [id number] 2004 Medicare MEDICARE MEDICAR E A AND B [id number] 2004-Present [phone] [place] [address] Medicare [id number] 2004 Medicare [id number] 2004 Medicare [id number] 2004 Blue Cross Blue Shield BLUE CARD TRADITIONAL OOS [id number] 2004 Unknown ANTHEM BLUE CARD TRADITIONAL OOS [id number] 2004-Present [phone] [place] [address] Indemnity [id number] [id number] 2004 Unknown ANTHEM BLUE CARD TRADITIONAL OOS [id number] 2004-Present [phone] [place] [address] Indemnity [id number] 2004 Unknown [id number] Unknown [id number] 2.16840.1.511395.3.579. 2.462 Unknown [id number] 2.16840.1.591555.3.579. 2.462 Unknown [id number] 2.16840.1.719616.3.579. 2.462 Unknown [id number] 2.16840.1.919285.3.579. 2.462 Unknown [id number] 2.16840.1.655466.3.579. 2.462 Unknown [id number] 2.16840.1.058767.3.579. 2.462 Unknown [id number] 2.16840.1.177974.3.579. 2.462 Unknown [id number] 2.16840.1.311745.3.579. 2.462 Unknown [id number] 2.16840.1.309040.3.579. 2.462 Unknown [id number] 2.16840.1.349882.3.579. 2.462 Unknown [id number] 2.840.1.690253.3.579. 2.462 Unknown [id number] 2.840.1.992517.3.579. 2.462 Unknown [id number] 2.840.1.986597.3.579. 2.462 Unknown [id number] 2.840.1.774014.3.579. 2.462 Unknown [id number] 2.840.1.499503.3.579. 2.462 Unknown [id number] 2.840.1.754972.3.579. 2.462 Unknown [id number] 2.840.1.204585.3.579. 2.462 Unknown [id number] 2.840.1.014711.3.579. 2.462 Unknown [id number] 2.840.1.423998.3.579. 2.462 Unknown [id number] 2.840.1.105189.3.579. 2.462 Unknown [id number] 2.840.1.235660.3.579. 2.462 Unknown [id number] 2.840.1.064905.3.579. 2.462 Social History Date Type Detail Facility Start: 03-03-2017 End: 04-03-2025 Tobacco smoking status NHIS Ex-smoker [facility] Start: 07-13-1961 End: 07-13-1981 History of tobacco use Current smoker [facility] Start: 07-13-1961 End: 07-13-1981 History of tobacco use Cigarette Smoker [facility] Start: 10-11-2021 End: 03-07-2025 Alcohol intake Current non-drinker of alcohol (finding) [facility] Start: 03-03-2017 End: 04-24-2022 Tobacco Comment Pt smoked one pack every 3 days. [facility] Start: 1940 Sex Assigned At Not on file C [facility] Start: 10-01-2021 End: 01-14-2022 Exposure to SARS-CoV-2 (event) Not sure [facility] Start: 01-24-2022 End: 06-15-2023 Tobacco smoking status OKIS Unknown if ever smoked [facility] Start: 12-19-2020 None [facility] Start: 12-19-2020 Homeless [facility] Start: 12-19-2020 Non-smoker [facility] Start: 1940 Sex Assigned At Female [facility] Start: 03-03-2017 End: 04-06-2024 Tobacco use and exposure Smokeless tobacco non-user [facility] Start: 12-11-2022 End: 04-28-2023 History of Social function [facility] Start: 12-11-2022 End: 04-28-2023 Tobacco use panel [facility] Start: 04-25-2015 Adult Depression Screening Assessment 0 [facility] (I/We) worried alina er (my/our) food would run out before (I/we) got money to buy more. Never true [facility] Work Phone: How often to you hav e a drink containing alcohol? Never [facility] Has the [employer], [employer], or water [employer] threatened to shut off services in your home in past 12Mo No [facility] Medical Equipment Procedure Code Equipment Code Equipment Origin al Text Equipment Identifier Dates Primary uncemented hemiarthroplasty of hip KIT,FEMORAL BONE CEMENT PREP FDA Start: 04-04-2025 Primary uncemented hemiarthroplasty of hip ([id number]) Metallic femoral head prosthesis ()[id number] FDA Start: 04-04-2025 Primary uncemented hemiarthroplasty of hip ([id number]) Orthopaedic cement spacer ()[id number]) [id number] FDA Start: 04-04-2025 Primary uncemented hemiarthroplasty of hip ([id number]) Bipolar femoral head outer component, hemiarthroplasty ()[id number]) [id number] FDA Start: 04-04-2025 Primary uncemented hemiarthroplasty of hip ([id number]) Coated hip femur prosthesis, modular ()[id number]) [id number] FDA Start: 04-04-2025 Primary uncemented hemiarthroplasty of hip Orthopaedic cement, antimicrobial ()[id number]) [id number] FDA Start: 04-04-2025 Primary uncemented hemiarthroplasty of hip KIT,FEMORAL BONE CEMENT PREP FDA Start: 04-04-2025 [id number], [id number] Start: 03-08-2020 Comment on above: TEST BLOOD SUGAR ONC E DAILY Test blood sugar(s) 1 daily. Dx: Other DM Code E 11.29 Insulin: No Pacemaker-04/27/2015 [id number] Sta rt: 04-27-2015 Comment on above: Description: PM-ABT HP2429 Assurity RV Lead 8TC-58 [id number] RA Lead 8TX-52 [id number] ([id number]) Dual-chamber implantable pacemaker, rate-responsive ()[id number] FDA Start: 04-11-2024 Goals Date Patient Goal Desired Activity /State Functional Status Date Assessment Result Facility 04-06-2025 Functional status Back to bed [facility] Work Phone: 02-10-2025 Functional status Bedside Commode [facility] Work Phone: 10-03-2014 Are you deaf, or do you have serious difficulty hearing No 10/03/2014 9:44 AM Kandi Thompson MA No [facility] 10-03-2014 Are you blind, or do you have serious difficulty seeing, even when wearing glasses No 10/03/2014 9:44 AM Kandi Thompson MA No [facility] 10-03-2014 Do you have serious difficulty walking or climbing stairs No 10/03/2014 9:44 AM Kandi Thompson MA No [facility] 10-03-2014 Do you have difficul ty dressing or bathing No 10/03/2014 9:44 AM Kandi Thompson MA No [facility] 10-03-2014 Because of a physica l, mental, or emotional condition, do you have difficulty doing errands alone such as visiting a physician's office or shopping No 10/03/2014 9:44 AM Kandi Thompson MA [facility] Mental Status Date Assessment Result Facility 04-06-2025 Cognitive function Voice/Name [facility] Work Phone: 02-10-2025 Cognitive function Voice/Name [facility] Work Phone: 02-08-2025 Cognitive function Level Of Cons ciousness Awake;Alert;Appropriate;Fol lows Commands [facility] Work Phone: 10-03-2014 Because of a physica l, mental, or emotional condition, do you have serious difficulty concentrating, remembering, or making decisions No 10/03/2014 9:44 AM Kandi Thompson MA [facility] Clinical Notes 09-10-2010 to 04-06-2025 Note Date & Type Note Facility 04-06-2025 Progress note Note Date/Time April 06, 2025 9:38am [facility] Medical Records Department [address] [place] [address] Progress Note - Hospitalist 04/06/25 0804 MR#: [id number] Acct: [id number] Name: GUDELIA GUPTA Rep #:[id number] : 1940 84 From: Gunnar Mullen DO PCP: Dr. Victor M Rocha MD Status:AD M IN Location: MS3 [id number] Reason for Visit Chief Complaint: Left hip [...] at bedside DW SW/CM/RN. SNF today. 04/06/25 0990 <Electronically signed by Gunnar Mullen DO> Cosigner Signature (if applicable): CC: ~ Signed [facility] Work Phone: 1(343) 296-179409-25-2025 Consult note [facility] Medical Records Department [address] [place] [address] Anesthesia Postop Eval I 04/04/25 1520 MR#: [id number] Acct: [id number] Name: GUDELIA GUPTA Rep #:[id number] : 1940 84 From: Dwight ZARAGOZA PCP: Dr. Victor M Rocha MD Status:AD M IN Y Race: C Location: [place] [address] -1 Anesthesia: Postop Eval I Current Vital Signs Temperature: 99.3 F Pulse Rate: 80 Blood Pressure: 111/58 Respiratory Rate: 16 Pulse Ox: 92 Assessment Airway patent: Yes Spontaneous unlabored respirations: Yes nausea: No Vomiting: No Anesthesia Complication: No Fluid Hydration Crystalloid volume administer (ml): 1,300 Total IV fluid infused: 1,300 Progress Note Anesthesia document: Postop Eval 1 completed: Yes 04/04/25 1520 BUS PERSON> Date _ Dwight Suarezbitt BUS PERSON Chiquiigner Signature: Date CC: ~ Signed [facility]09-25-2025 Consult note [facility] Medical Records Department [address] [place] [address] Anesthesia Postop Eval II 04/04/25 1753 MR#: [id number] Acct: [id number] Name: GUDELIA GUPTA Rep #:[id number] : 1940 84 From: Niranjan Turner MD PCP: Dr. Victor M Rocha MD Status:AD M IN Y Race: C Location: [place] [address] Anesthesia Postop Eval I Sum Postop Eval Completion status Anesthesia document: Postop Eval 1 completed: Yes Anesthesia Postop Eval I Summary Anesthesia Postop Eval I Summary: Anesthesia Postop Eval I: Assessment Summary Airway patent Yes 04/04/25 15:20 BUS PERSON.TNES Spontaneous unlabored Yes 04/04/25 15:20 BUS PERSON.TNES respirations Mental status nausea No 04/04/25 15:20 BUS PERSON.TNES Vomiting No 04/04/25 15:20 BUS PERSON.TNES Anesthesia Postop Eval I: Fluid Summary Crystalloid volume administer 1,300 04/04/25 15:20 BUS PERSON.TNES (ml) Colloids volume administered ( ml) Blood Product volume administered (ml) Total IV fluid infused 1,300 04/04/25 15:20 BUS PERSON.TNES Anesthesia Postop Eval I: Summary Notes Anesthesia Complication No 04/04/25 15:20 BUS PERSON.TNES Anesthesia Complication Comment: Post-operative progress note Anesthesia: Postop Eval II Evaluation Mental status: Awake and Calm Pain Level: 2 nausea: No Vomiting: No Complications Anesthesia Complication: No 04/04/25 1753 ness MORRISON> Date _ Niranjan Florianigner Signature: Date CC: ~ Signed [facility]09-25-2025 Consult note [facility] Medical Records Department [address] [place] [address] Counseling Note - Pharmacy 04/06/2546 MR#: [id number] Acct: [id number] Name: GUDELIA GUPTA Rep #:[id number] : 1940 84 From: Karthikeyan sewell PCP: Dr. Victor M Rocha MD Status:AD M IN Location: [facility] FW553-0 Pharmacy [place] Med Reconciliation Pharmacy Service has performed discharge [...] Signature (if applicable): Date CC: ~ Signed [facility]09-25-2025 Discharge summary [facility] Medical Records Department [address] [place] [address] Discharge Summary 04/06/25 0939 MR#: [id number] Acct: [id number] Name: GUDELIA GUPTA Rep #:[id number] : 1940 84 From: Gunnar Mullen DO PCP: Dr. Victor M Rocha MD Status:AD M IN Location: [facility] OR937-1 Providers Date of Admission: 04/03/25 Primary Care [...] in before D/C Order can be placed): [facility]pc Facility Charges/Coding Visit Charges Inpatient E&M: 85279 Disch Hosp 04/06/25 0940 Cosigner Signature (if applicable): CC: Dr. Gunnar Mullen DO; Dr. Victor M Rocha MD~ Signed [facility]09-25-2025 Discharge summary [facility] Medical Records Department [address] [place] [address] Transfer to [facility] Care MR#: [id number] Acct: [id number] Name: GUDELIA GUPTA Rep #:[id number] : 1940 84 From: Gunnar Mullen DO PCP: Dr. Victor M Rocha MD Status:AD M IN Certification of patient admission REQUIRED AT TIME OF ADMISSION. I CERTIFY THAT POST-HOSPITAL ECF SERVICES ARE REQUIRED TO BE GIVEN ON AN IN-PATIENT BASIS BECAUSE OF THE ABOVE NAMED PATIENT'S NEED FOR SHELTER CARE ON A CONTINUING BASIS FOR THE CONDITION(S) FOR WHICH HE/SHE WAS RECEIVING IN-PATIENT HOSPITAL SERVICES PRIOR TO HIS/HER TRANSFER TO THE [facility]. 04/06/25 0939 Diet Diet Order/Speech Therapy: [...] in before D/C Order can be placed): [facility]pc Facility (1) Closed left hip fracture Qualifiers: Encounter type: initial encounter Qualified Code(s): S72.002A - Fracture of unspecified part of neck of left femur, initial encounter for closed fracture 04/06/25 09 Cosigner Signature (if applicable): CC: Dr. Victor M Rocha MD; Dr. Ashli Bonner MD; Dr. Adonis Rodriguez MD ~ [facility]09-25-2025 [facility] Medical Records Department [address] [place] [address] Discharge Summary 04/06/25 0939 MR#: [id number] Acct: [id number] Name: GUDELIA GUPTA Rep #: [id number] : 1940 84 From: Gunnar Mullen DO PCP: Dr. Victor M Rocha MD Status:ADM IN Location: [place] [address] Providers Date of Admission: 04/03/25 Primary Care [...] hip fracture. Attending Provider: (more content not included)...[facility] 04-06-2025 Progress note [facility] Medical Records Department [address] [place] [address] Progress Note - Hospitalist 04/06/25 0804 MR#: [id number] Acct: [id number] Name: GUDELIA GUPTA Rep #:[id number] : 1940 84 From: Gunnar Mullen DO PCP: Dr. Victor M Rocha MD Status:AD M IN Location: [place] [address] Reason for Visit Chief Complaint: Left hip [...] Cosigner Signature (if applicable): CC: ~ Signed [facility]09-24-2025 Progress note Author Shavon Ferguson [facility] Note Date/Time April 05, 2025 3:33pm [facility] Medical Records Department [address] [place] [address] Progress Note - Orthopedic 04/05/25 1518 MR#: [id number] Acct: [id number] Name: GUDELIA GUPTA Rep #:[id number] : 1940 84 From: Shavon BRISCOE PCP: Dr. Victor M Rocha MD Status:AD M IN Location: [place] [address] Subjective Subjective Patient is s/p left hip [...] 88.4 H, Lymph % (Auto) 5.5 L, [place] % (Auto) 5.6, Eos % (Auto) 0.0, [...] replacement. Normal alignment without loosening. Reading Location: [facility] Physical Exam Narrative Patient resting comfortably in [...] Cosigner Signature (if applicable): cc: ~* Signed [facility] Work Phone: 1(798) 297-740209-24-2025 Progress note [facility] Medical Records Department [address] [place] [address] Progress Note - Orthopedic 04/05/25 1518 MR#: [id number] Acct: [id number] Name: GUDELIA GUPTA Rep #:[id number] : 1940 84 From: Shavon BRISCOE PCP: Dr. Victor M Rocha MD Status:AD M IN Location: MS3 BO490-8 Subjective Subjective Patient is s/p left hip [...] 88.4 H, Lymph % (Auto) 5.5 L, [place] % (Auto) 5.6, Eos % (Auto) 0.0, [...] replacement. Normal alignment without loosening. Reading Location: [facility] Physical Exam Narrative Patient resting comfortably in [...] Cosigner Signature (if applicable): cc: ~* Signed [facility]09-24-2025 Progress note Author Gunnar Mullen [facility] Note Date/Time April 05, 2025 12:20pm [facility] Medical Records Department [address] [place] [address] Progress Note - Hospitalist 04/05/25718 MR#: [id number] Acct: [id number] Name: GUDELIA GUPTA Rep #:[id number] : 1940 84 From: Gunnar Mullen DO PCP: Dr. Victor M Rocha MD Status:AD M IN Location: [place] [address]-1 Reason for Visit Chief Complaint: Left hip [...] 88.4 H, Lymph % (Auto) 5.5 L, [place] % (Auto) 5.6, Eos % (Auto) 0.0, Baso % (Auto) 0.1, Absolute Neuts (auto) 13.0 H, Absolute Lymphs (auto) 0.81 L, Nucleated RBC % 0 Radiography Diagnostic Testing: Radiology Impression Hip X-Ray 04/04/25 15:20 IMPRESSION: Status post total left hip replacement. Normal alignment without loosening. Reading Location: [facility] Physical Exam Const alert Constitutional Narrative: up [...] pending acceptance. Charges/Coding Visit Charges Inpatient E&M: 77192 Subs Hosp L2 04/05/25 1220 <Electronically signed by Gunnar Mullen DO> Cosigner Signature (if applicable): CC: ~ Signed [facility] Work Phone: 1(295) 115-486809-24-2025 Progress note [facility] Medical Records Department [address] [facility] [place] [address] Progress Note - Hospitalist 04/05/25718 MR#: [id number] Acct: [id number] Name: GUDELIA GUPTA Rep #:[id number] : 1940 84 From: Gunnar Mullen DO PCP: Dr. Victor M Rocha MD Status:AD M IN Location: [place] [address]-1 Reason for Visit Chief Complaint: Left hip [...] 88.4 H, Lymph % (Auto) 5.5 L, [place] % (Auto) 5.6, Eos % (Auto) 0.0, Baso % (Auto) 0.1, Absolute Neuts (auto) 13.0 H, Absolute Lymphs (auto) 0.81 L, Nucleated RBC % 0 Radiography Diagnostic Testing: Radiology Impression Hip X-Ray 04/04/25 15:20 IMPRESSION: Status post total left hip replacement. Normal alignment without loosening. Reading Location: [facility] Physical Exam Const alert Constitutional Narrative: up [...] pending acceptance. Charges/Coding Visit Charges Inpatient E&M: 10541 Subs Hosp L2 04/05/25 1220 Cosigner Signature (if applicable): CC: ~ Signed [facility]09-23-2025 Consult note Author Niranjan Turner [facility] Note Date/Time April 06, 2025 11:37am [facility] Medical Records Department [address] [place] [address] Anesthesia Postop Eval II 04/04/25 1753 MR#: [id number] Acct: [id number] Name: GUDELIA GUPTA Rep #:[id number] : 1940 84 From: Niranjan Turner MD PCP: Dr. Victor M Rocha MD Status:AD M IN Y Race: C Location: [facility] MS302 -1 Anesthesia Postop Eval I Sum Postop Eval Completion status Anesthesia document: Postop Eval 1 completed: Yes Anesthesia Postop Eval I Summary Anesthesia Postop Eval I Summary: Anesthesia Postop Eval I: Assessment Summary Airway patent Yes 04/04/25 15:20 BUS PERSON.TNES Spontaneous unlabored Yes 04/04/25 15:20 BUS PERSON.TNES respirations Mental status nausea No 04/04/25 15:20 BUS PERSON.TNES Vomiting No 04/04/25 15:20 BUS PERSON.TNES Anesthesia Postop Eval I: Fluid Summary Crystalloid volume administer 1,300 04/04/25 15:20 BUS PERSON.TNES (ml) Colloids volume administered ( ml) Blood Product volume administered (ml) Total IV fluid infused 1,300 04/04/25 15:20 BUS PERSON.TNES Anesthesia Postop Eval I: Summary Notes Anesthesia Complication No 04/04/25 15:20 BUS PERSON.TNES Anesthesia Complication Comment: Post-operative progress note Anesthesia: Postop Eval II Evaluation Mental status: Awake and Calm Pain Level: 2 nausea: No Vomiting: No Complications Anesthesia Complication: No 04/04/25 1753 <Electronically signed by Niranjan arzola MD> Date _ Niranjan Turner MD Cosigner Signature: Date CC: ~ Signed [facility] Work Phone: 1(624) 958-217509-23-2025 Consult note Author Dwight Bisbee [facility] Note Date/Time April 06, 2025 11:37am [facility] Medical Records Department [address] [place] [address] Anesthesia Postop Eval I 04/04/25 1520 MR#: [id number] Acct: [id number] Name: GUDELIA KEENE Jose Rep #:[id number] : 1940 84 From: Dwight ZARAGOZA PCP: Dr. Victor M Rocha MD Status:AD M IN Y Race: C Location: [place] [address] -1 Anesthesia: Postop Eval I Current Vital [...] CRNA Cosigner Signature: Date CC: ~ Signed [facility] Work Phone: 1(316) 559-690909-23-2025 Consult note Author Adonis Rodriguez [facility] Note Date/Time April 04, 2025 2:48pm [facility] Medical Records Department [address] [place] [address] Consultation - Orthopedics 04/04/25 1444 MR#: [id number] Acct: [id number] Name: GUDELIA GUPTA Rep #:[id number] : 1940 84 From: Adonis Garcia PCP: Dr. Victor M Rocha MD Status:AD M IN Location: [facility] XM539-0 HPI Consult Data Date of Consult: 04/04/25 [...] denies dizziness head injury loss of consciousness. [facility] Medical History Overweight (BMI 25.0-29.9) Coronary artery disease Iron deficiency anemia History of non-ST elevation myocardial infarction (NSTEMI) (2013) Longstanding persistent atrial fibrillation Essential (primary) hypertension Anxiety Hypothyroidism Hyperlipidemia Secondary pulmonary arterial hypertension Atherosclerosis of coronary artery of platinum heart without angina pectoris Paroxysmal atrial fibrillation [...] (Auto) 86.5 H, Lymph % (Auto)4.3 L, [place] % (Auto) 8.1, Eos % (Auto) 0.1, [...] 76.2 H, Lymph % (Auto) 11.5 L, [place] % (Auto) 9.4, Eos % (Auto) 2.1, [...] acute osseous change is seen. [id number] Fem[facility] X-Ray 04/03/25 14:09 IMPRESSION: Nondisplaced impacted fracture of the subcapital region of the proximal left femur. Soft tissue swelling. Reading Location: [facility]-IR-1 Pelvis X-Ray 04/03/25 14:09 IMPRESSION: Residual contrast material is seen within at least 2 sigmoid diverticula. Significant degenerative changes are seen of the visualized lower lumbar spine. Mild sacroiliac joint degenerative changes are noted. Deformity of the left femoral neck is seen, concerning for possible basicervicalmildly impacted fracture. Additional imaging of the left hip may be performed, at this time. Reading Location: -[id number] Brain CT 04/03/25 15:00 IMPRESSION: CHRONIC CHANGES. NO ACUTE FINDINGS. Reading Location: [facility]IR-[address] 04/03/25 15:00 IMPRESSION: DEGENERATIVE CHANGES OF THE CERVICAL SPINE. NO EVIDENCE OF SIGNIFICANT OSSEOUS CENTRAL CANAL OR NEURAL FORAMINAL STENOSIS. Reading Location: [facility]IR-1 Assessment & Plan Assessment/Plan (1) Closed [...] CC: Dr. Victor M Rocha MD~ Signed [facility] Work Phone: 1(359) 585-526109-23-2025 Radiology Diagnostic study note [facility] Imaging Services [address] [place] [address] [id number] Hip Min 2 Views (Portable) MR#: [id number] Acct: [id number] Name: GUDELIA GUPTA Rep #: [id number] : 1940 F 84 From: Gerardo Sandoval MD PCP: Dr. Victor M Rocha MD Status: AD M IN Study:Hip Min 2 Views (Portable) Date of Exam : 04/04/25 Exam# [id number] Ordering Dr: Tessie Rodriguez MD PROCEDURE: HIP [...] replacement. Normal alignment without loosening. Reading Location: [facility] CC: Dr. Victor M Rocha MD; Dr. Adonis Rodriguez MD ~ Criminal Attorney: Signed [facility]09-23-2025 Consult note [facility] Medical Records Department [address] [place] [address] Consultation - Orthopedics 04/04/25 1444 MR#: [id number] Acct: [id number] Name: GUDELIA GUPTA Rep #:[id number] : 1940 84 From: Adonis Garcia PCP: Dr. Victor M Rocha MD Status:AD M IN Location: [facility] W[place]457-2 HPI Consult Data Date of Consult: 04/04/25 [...] denies dizziness head injury loss of consciousness. [facility] Medical History Overweight (BMI 25.0-29.9) Coronary artery disease Iron deficiency anemia History of non-ST elevation myocardial infarction (NSTEMI) (2013) Longstanding persistent atrial fibrillation Essential (primary) hypertension Anxiety Hypothyroidism Hyperlipidemia Secondary pulmonary arterial hypertension Atherosclerosis of coronary artery of platinum heart without angina pectoris Paroxysmal atrial fibrillation [...] (Auto) 86.5 H, Lymph % (Auto)4.3 L, [place] % (Auto) 8.1, Eos % (Auto) 0.1, [...] 76.2 H, Lymph % (Auto) 11.5 L, [place] % (Auto) 9.4, Eos % (Auto) 2.1, [...] acute osseous change is seen. Reading [id number] Femur X-Ray 04/03/25 14:09 IMPRESSION: Nondisplaced impacted fracture of the subcapital region of the proximal left femur. Soft tissue swelling. Reading Location: [facility]- Pelvis X-Ray 04/03/25 14:09 IMPRESSION: Residual contrast material is seen within at least 2 sigmoid diverticula. Significant degenerative changes are seen of the visualized lower lumbar spine. Mild sacroiliac joint degenerative changes are noted. Deformity of the left femoral neck is seen, concerning for possible basicervicalmildly impacted fracture. Additional imaging of the left hip may be performed, at this time. Reading [id number] Brain [facility] 04/03/25 15:00 IMPRESSION: CHRONIC CHANGES. NO ACUTE FINDINGS. Reading Location: [facility]-[address] 04/03/25 15:00 IMPRESSION: DEGENERATIVE CHANGES OF THE CERVICAL SPINE. NO EVIDENCE OF SIGNIFICANT OSSEOUS CENTRAL CANAL OR NEURAL FORAMINAL STENOSIS. Reading Location: [facility]-1 Assessment & Plan Assessment/Plan (1) Closed left [...] CC: Dr. Victor M Rocha MD~ Signed [facility]09-23-2025 Procedure note [facility] Medical Records Department [address] [place] [address] Operative Report 04/04/25 1437 MR#: [id number] Acct: [id number] Name: GUDELIA GUPTA Rep #:[id number] : 1940 84 From: Adonis Garcia PCP: Dr. Victor M Rocha MD Status:AD M IN Location: [facility] VS972-6 Operative Report (Standard) Operative Information Date of Procedure: 04/04/25 Pre-Operative Diagnosis: Displaced left femoral neck fracture Post-Operative Diagnosis: Same Surgery/Procedure Performed: Left hip cemented hemiarthroplasty senior stock plan administrator: Yes [employer] Caser: Destiny Hilario Tasks completed by medical research assistant: Closing and Implanting device Additional insurance sales assistant?: No Type of Anesthesia: General RN Documented Start/Stop Times: Operation Date: 04/04/25 12:30 Case Time Into Pre-Op 04/04/25 11:38 Out of Pre-Op 04/04/25 12:54 Into Room 04/04/25 12:55 Anesthesia Start 04/04/25 12:56 Procedure Start 04/04/25 13:30 Procedure Start Time: 13:30 Procedure Stop Time: 14:39 Select all DRAINS/GRAFTS/IMPLANTS that apply: Prosthetic device Prosthetic device details: [place] cemented bipolar hemiarthroplasty Estimated Blood Loss: 300 Specimen collected: No Description of surgery: Indications for surgery : Patient is a (84) -year-old that fell yesterday fracturing the involved hip. Appropriate informed consent was obtained and signed. Appropriate medical workup was performed preoperatively and patient wasdeemed safe for surgery by the anesthesia department assistant field hockey coach, PA was utilized throughout the entire procedure. They were vital in helping with patient positioning, holding of retractors, exposing the tissues adequately for safe completion of the procedure including cutting of the bone, helping bulk truck driver appropriate alignment and sizing of the components, implantation of the components, as well as wound closure, bandage application, andsafe patient transfer. Without surgical territory manager, physician insurance sales assistant, surgical time would have been significantly increased, [...] surgeon. Leg was appropriately rotated by the insurance sales assistant. Retractor was used tolift the abductors anteriorly [...] bone of the proximal femur. Utilized the [employer] cutting osteotome the proximal lateral greater trochanteric [...] 1-2 days. This note was generated with Dim[employer] dictation software. It may contain incorrect words, spelling, and punctuation that were not noted in checking the note before signing. Surgical Findings: Left hip fracture Complications Complications: No Admit VTE Documentation VTE Present on Admission: No VTE Mechan Device Prophylaxis: SCD's and Thigh High JUAN DANIEL Hose VTE Pharm Prophylaxis ordered?: Yes 04/04/25 9493 Cosigner Signature (if applicable): CC: Dr. Victor M Rocha MD; Dr. Ashli Bonner MD; Dr. Adonis Rodriguez MD~ Signed [facility]09-23-2025 Consult note Author [facility]jan [facility] Note Date/Time April 04, 2025 12:37pm [facility] Medical Records Department [address] [place] [address] Pre-Anesthesia Evaluation 04/04/25 1221 MR#: [id number] Acct: [id number] Name: GUDELIA GUPTA Rep #:[id number] : 1940 84 From: Niranjan Turner MD PCP: Dr. 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 leasing manager Hx Hospitalization Yes 05/01/20 15:28 Any Problems [...] sips of water?: Yes PONV PONV - commercial leasing manager: PONV - commercial leasing manager Female HX of Motion Sickness HX of N/V After Surgery Non-Smoker Duration of Surgery greater than 60 minutes Number of Risk Factors PONV Score Height & Weight Height & Weight: Anesthesia: Height & Weight Height 5 ft 8 in 04/03/25 17:31 Weight: 89.3 kg 04/04/25 06:00 Body Mass Index (BMI) 29.8 04/04/25 06:00 Respiratory Assessment Respiratory Assessment - commercial leasing manager: Respiratory Tract Infection Hx - commercial leasing manager Hx Respiratory Tract Infection No 04/03/25 21:46 STOP Sleep Apnea STOP Sleep Apnea - commercial leasing manager: STOP Sleep Apnea - commercial leasing manager Hx Hypertension Yes 04/03/25 17:31 Hx Sleep [...] Tobacco Use History Tobacco Use History - commercial leasing manager: Tobacco Use History - commercial leasing manager Tobacco Use Non-smoker 12/19/20 19:00 Smoking Status Former smoker 04/03/25 17:31 Hx Tobacco Use No 04/03/25 17:31 Years Smoking Packs Smoked per Day Smoking Cessation Date was No - quit smoking greater 04/03/25 17:31 within the last 15 years than 15 years ago Hx Smoking Cessation Date 07/13/83 04/03/25 17:31 Hx Smoking Cessation No 04/03/25 17:31 Counseling Hematologic Medial History Hematologic Hx - commercial leasing manager: 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 Hx of Blood Transfusion No 04/03/25 17:31 [...] confused, unrespo /Reproduction History /Reproductive History - commercial leasing manager: /Reproductive Hx- commercial leasing manager Hx Now No 04/03/25 21:46 Gestational Age [...] mls @ 15 mls/hr 04/03/25 17:32 IV .[id number] PRN Additional IVPB Infusion Sodium Chloride 250 mls @ 15 mls/hr 04/03/25 17:32 IV .[id number] PRN Saline Flush Dextrose 250 mls @ [...] 10 ml UD PRN Administration SALINE FLUSH [facility] Medical History Overweight (BMI 25.0-29.9) Coronary artery disease Iron deficiency anemia History of non-ST elevation myocardial infarction (NSTEMI) (2013) Longstanding persistent atrial fibrillation Essential (primary) hypertension Anxiety Hypothyroidism Hyperlipidemia Secondary pulmonary arterial hypertension Atherosclerosis of coronary artery of platinum heart without angina pectoris Paroxysmal atrial fibrillation [...] MD Cosigner Signature: Date CC: ~ Signed [facility] Work Phone: 1(444) 213-464609-23-2025 Consult note [facility] Medical Records Department [address] [place] [address] Pre-Anesthesia Evaluation 04/04/25 1221 MR#: [id number] Acct: [id number] Name: GUDELIA GUPTA Rep #:[id number] : 1940 84 From: Niranjan Turner MD PCP: Dr. 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: Anesthesia History - commercial leasing manager Hx Hospitalization Yes 05/01/20 15:28 Any Problems [...] sips of water?: Yes PONV PONV - commercial leasing manager: PONV - commercial leasing manager Female HX of Motion Sickness HX of N/V After Surgery Non-Smoker Duration of Surgery greater than 60 minutes Number of Risk Factors PONV Score Height & Weight Height & Weight: Anesthesia: Height & Weight Height 5 ft 8 in 04/03/25 17:31 Weight: 89.3 kg 04/04/25 06:00 Body Mass Index (BMI) 29.8 04/04/25 06:00 Respiratory Assessment Respiratory Assessment - commercial leasing manager: Respiratory Tract Infection Hx - commercial leasing manager Hx Respiratory Tract Infection No 04/03/25 21:46 STOP Sleep Apnea STOP Sleep Apnea - commercial leasing manager: STOP Sleep Apnea - commercial leasing manager Hx Hypertension Yes 04/03/25 17:31 Hx Sleep [...] Tobacco Use History Tobacco Use History - commercial leasing manager: Tobacco Use History - commercial leasing manager Tobacco Use Non-smoker 12/19/20 19:00 Smoking Status Former smoker 04/03/25 17:31 Hx Tobacco Use No 04/03/25 17:31 Years Smoking Packs Smoked per Day Smoking Cessation Date was No - quit smoking greater 04/03/25 17:31 within the last 15 years than 15 years ago Hx Smoking Cessation Date 07/13/83 04/03/25 17:31 Hx Smoking Cessation No 04/03/25 17:31 Counseling Hematologic Medial History Hematologic Hx - commercial leasing manager: 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 Hx of Blood Transfusion No 04/03/25 17:31 [...] confused, unrespo /Reproduction History /Reproductive History - commercial leasing manager: /Reproductive Hx- commercial leasing manager Hx Now No 04/03/25 21:46 Gestational Age [...] mls @ 15 mls/hr 04/03/25 17:32 IV .[id number] PRN Additional IVPB Infusion Sodium Chloride 250 mls @ 15 mls/hr 04/03/25 17:32 IV .[id number] PRN Saline Flush Dextrose 250 mls @ 0 mls/hr 04/03/25 17:47 Dextrose 10%-Water IV .Q0M PRN HYPOGLYCEMIA Protocol As Directed Lactated Ringer's 1,000 mls @ 15 mls/hr 04/04/25 11:45 04/04/25 11:56 IV 15 mls/hr .Q48H RILEY Administration Insulin Human Lispro 0 unit 04/03/25 22:00 04/04/25 10:53 Insulin Lispro 100 Unit/Ml Insuln.Pen SC Not Given ACHS [facility] Protocol Levothyroxine Sodium 100 mcg 04/04/25 06:00 [...] Sodium 1 Tablet PO Not Given BID [facility] Sodium Chloride 10 - 40 ml 04/03/25 17:32 04/03/25 19:45 0.9% Saline Lock 10 Ml Syringe IV 10 ml UD PRN Administration SALINE FLUSH [facility] Medical History Overweight (BMI 25.0-29.9) Coronary artery disease Iron deficiency anemia History of non-ST elevation myocardial infarction (NSTEMI) (2013) Longstanding persistent atrial fibrillation Essential (primary) hypertension Anxiety Hypothyroidism Hyperlipidemia Secondary pulmonary arterial hypertension Atherosclerosis of coronary artery of platinum heart without angina pectoris Paroxysmal atrial fibrillation [...] MD Cosigner Signature: Date CC: ~ Signed [facility]09-23-2025 Progress note Author Gunnar Mullen [facility] Note Date/Time April 04, 2025 10:28am [facility] Medical Records Department [address] [address] Progress Note - Hospitalist 04/04/25 0743 MR#: [id number] Acct: [id number] Name: GUDELIA GUPTA Rep #:[id number] : 1940 84 From: Gunnar Mullen DO PCP: Dr. Victor M Rocha MD Status:AD M IN Location: MS3 UX013-7 Reason for Visit Chief Complaint: Left hip [...] (Auto) 86.5 H, Lymph % (Auto)4.3 L, [place] % (Auto) 8.1, Eos % (Auto) 0.1, [...] 76.2 H, Lymph % (Auto) 11.5 L, [place] % (Auto) 9.4, Eos % (Auto) 2.1, [...] acute osseous change is seen. Reading Location: [id number] Femur X-Ray 04/03/25 14:09 IMPRESSION: Nondisplaced impacted [...] be performed, at this time. Reading Location: -[id number] Brain CT 04/03/25 15:00 IMPRESSION: CHRONIC CHANGES. NO ACUTE FINDINGS. Reading Location: [facility] 04/03/25 15:00 IMPRESSION: DEGENERATIVE CHANGES OF THE CERVICAL SPINE. NO EVIDENCE OF SIGNIFICANT OSSEOUS CENTRAL CANAL OR NEURAL FORAMINAL STENOSIS. Reading Location: [facility]--1 Physical Exam Const alert and no [...] ppx: SCDs Charges/Coding Visit Charges Inpatient E&M: 42596 Subs Hosp L2 04/04/25 1028 <Electronically signed by Gunnar Mullen DO> Cosigner Signature (if applicable): CC: ~ Signed [facility] Work Phone: 1(968) 493-474109-23-2025 Progress note [facility] Medical Records Department [address] [place] [address] Progress Note - Hospitalist 04/04/25 0743 MR#: [id number] Acct: [id number] Name: GUDELIA GUPTA Rep #:[id number] : 1940 84 From: Gunnar Mullen DO PCP: Dr. Victor M Rocha MD Status:AD M IN Location: [place] [address] Reason for Visit Chief Complaint: Left hip [...] (Auto) 86.5 H, Lymph % (Auto)4.3 L, [place] % (Auto) 8.1, Eos % (Auto) 0.1, [...] 76.2 H, Lymph % (Auto) 11.5 L, [place] % (Auto) 9.4, Eos % (Auto) 2.1, [...] acute osseous change is seen. Reading Location: [id number] Femur X-Ray 04/03/25 14:09 IMPRESSION: Nondisplaced impacted fracture of the subcapital region of the proximal left femur. Soft tissue swelling. Reading Location: [place] [address] Pelvis X-Ray 04/03/25 14:09 IMPRESSION: Residual contrast material is seen within at least 2 sigmoid diverticula. Significant degenerative changes are seen of the visualized lower lumbar spine. Mild sacroiliac joint degenerative changes are noted. Deformity of the left femoral neck is seen, concerning for possible basicervicalmildly impacted fracture. Additional imaging of the left hip may be performed, at this time. Reading Location: [id number] Brain CT 04/03/25 15:00 IMPRESSION: CHRONIC CHANGES. NO ACUTE FINDINGS. Reading Location: [facility]-[address] 04/03/25 15:00 IMPRESSION: DEGENERATIVE CHANGES OF THE CERVICAL SPINE. NO EVIDENCE OF SIGNIFICANT OSSEOUS CENTRAL CANAL OR NEURAL FORAMINAL STENOSIS. Reading Location: [place] [address] Physical Exam Const alert and no apparent [...] ppx: SCDs Charges/Coding Visit Charges Inpatient E&M: 52467 Subs Hosp L2 04/04/25 1028 Cosigner Signature (if applicable): CC: ~ Signed [facility]09-22-2025 History and physical note Author Ashli Bonner [facility] Note Date/Time April 03, 2025 5:35pm [facility] Medical Records Department [address] [place] [address] H&P Exam - Hospitalist 04/03/25 1713 MR#: [id number] Acct: [id number] Name: GUDELIA GUPTA Rep #:[id number] : 1940 84 From: Ashli Bonner MD PCP: Dr. Victor M Rocha MD Status:AD M IN Location: [facility] MO935-8 HPI - General General Date of Admission: 04/03/25 Date of Service: 04/03/25 Chief Complaint: Left hip pain after fall HPI Narrative GUDELIA GUPTA, is a 84-year-old female history of A-fib/flutter, sick sinus syndrome with pacemaker placement, anxiety, hypertension, GERD, diabetes who presented [facility] ED 04/03/2025 for left hip pain. She [...] any bowel or bladder concerns or changes [facility] Medical History Overweight (BMI 25.0-29.9) Coronary artery disease Iron deficiency anemia History of non-ST elevation myocardial infarction (NSTEMI) (2013) Longstanding persistent atrial fibrillation Essential (primary) hypertension Anxiety Hypothyroidism Hyperlipidemia Secondary pulmonary arterial hypertension Atherosclerosis of coronary artery of platinum heart without angina pectoris Paroxysmal atrial fibrillation [...] (Auto) 86.5 H, Lymph % (Auto)4.3 L, [place] % (Auto) 8.1, Eos % (Auto) 0.1, [...] acute osseous change is seen. Reading Location: [id number] Femur X-Ray 04/03/25 14:09 IMPRESSION: Nondisplaced impacted fracture of the subcapital region of the proximal left femur. Soft tissue swelling. Reading Location: [facility]1 Pelvis X-Ray 04/03/25 14:09 IMPRESSION: Residual contrast material is seen within at least 2 sigmoid diverticula. Significant degenerative changes are seen of the visualized lower lumbar spine. Mild sacroiliac joint degenerative changes are noted. Deformity of the left femoral neck is seen, concerning for possible basicervicalmildly impacted fracture. Additional imaging of the left hip may be performed, at this time. Reading Location: [id number] Brain CT 04/03/25 15:00 IMPRESSION: CHRONIC CHANGES. NO ACUTE FINDINGS. Reading Location: [facility] 04/03/25 15:00 IMPRESSION: DEGENERATIVE CHANGES OF THE CERVICAL SPINE. NO EVIDENCE OF SIGNIFICANT OSSEOUS CENTRAL CANAL OR NEURAL FORAMINAL STENOSIS. Reading Location: [facility] Assessment & Plan Assessment/Plan (1) Closed [...] Bonner MD Charges/Coding Visit Charges Inpatient E&M: 32089 Init Hosp L2 04/03/25 9094 <Electronically signed by Ashli Bonner MD> Cosigner Signature (if applicable): CC: Dr. Victor M Rocha MD; Dr. Ashli Bonner MD~ Signed [facility] Work Phone: 1(570) 688-160809-22-2025 Discharge summary Author Corwin Shearer [facility] Note Date/Time April 03, 2025 4:29pm [facility] Medical Records Department [address] [place] [address] Emergency Department Summary 04/03/25 MR#: [id number] Acct: [id number] Name: GUDELIA GUPTA Rep #:[id number] : 1940 84 From: Corwin Shearer DO [...] does not have any pain anywhere else. [facility] Medical History Overweight (BMI 25.0-29.9) Coronary artery disease Iron deficiency anemia History of non-ST elevation myocardial infarction (NSTEMI) (2013) Longstanding persistent atrial fibrillation Essential (primary) hypertension Anxiety Hypothyroidism Hyperlipidemia Secondary pulmonary arterial hypertension Atherosclerosis of coronary artery of platinum heart without angina pectoris Paroxysmal atrial fibrillation [...] Patient follow commands that she was at [facility] the year is 2024 Skin: Warm, [...] surgeon Dr. Rodriguez who is on for [place] [facility] who she states that she is [...] 86.5 H Lymph % (Auto) 4.3 L [place] % (Auto) 8.1 Eos % (Auto) 0.1 [...] acute osseous change is seen. Reading Location: [id number] Femur X-Ray 04/03/25 14:09 IMPRESSION: Nondisplaced impacted fracture of the subcapital region of the proximal left femur. Soft tissue swelling. Reading Location: [facility]-1 Pelvis X-Ray 04/03/25 14:09 IMPRESSION: Residual contrast material is seen within at least 2 sigmoid diverticula. Significant degenerative changes are seen of the visualized lower lumbar spine. Mild sacroiliac joint degenerative changes are noted. Deformity of the left femoral neck is seen, concerning for possible basicervicalmildly impacted fracture. Additional imaging of the left hip may be performed, at this time. Reading Location: -[id number] Brain CT 04/03/25 15:00 IMPRESSION: CHRONIC CHANGES. NO ACUTE FINDINGS. Reading Location: [facility]-[address] 04/03/25 15:00 IMPRESSION: DEGENERATIVE CHANGES OF THE CERVICAL SPINE. NO EVIDENCE OF SIGNIFICANT OSSEOUS CENTRAL CANAL OR NEURAL FORAMINAL STENOSIS. Reading Location: [place] [address] Discharge Plan Dx/Rx/DC Orders Clinical Impression: History of coronary artery stent placement, Hyperlipidemia, Essential (primary)hypertension, Heart failure, Closed left hip fracture Disposition Disposition: Acute Care Hospital [facility] What to do if you have Problems For any increased pain, shortness of breath, bleeding, nausea or vomiting, chestpain, or any unexpected problems, contact your Primary Care Provider. Call [facility] ([phone]) or report to the closest Emergency Room. Call 911 if necessary. 04/03/25 1628 <Electronically signed by Corwin Shearer DO> Cosigner Signature (if applicable): CC: Dr. Victor M Rocha MD ~ Signed [facility] Work Phone: 1(741) 888-670909-22-2025 History and physical note [facility] Medical Records Department [address] [place] [address] H&P Exam - Hospitalist 04/03/25 1713 MR#: [id number] Acct: [id number] Name: GUDELIA GUPTA Rep #:[id number] : 1940 84 From: Ashli Bonner MD PCP: Dr. Victor M Rocha MD Status:AD M IN Location: [place] PU287-6 HPI - General General Date of Admission: 04/03/25 Date of Service: 04/03/25 Chief Complaint: Left hip pain after fall HPI Narrative GUDELIA GUPTA, is a 84-year-old female history of A-fib/flutter, sick sinus syndrome with pacemakerplacement, anxiety, hypertension, GERD, diabetes who presented [facility] ED 04/03/2025 for left hip pain. She [...] y bowel or bladder concerns or changes [facility] Medical History Overweight (BMI 25.0-29.9) Coronary artery disease Iron deficiency anemia History of non-ST elevation myocardial infarction (NSTEMI) (2013) Longstanding persistent atrial fibrillation Essential (primary) hypertension Anxiety Hypothyroidism Hyperlipidemia Secondary pulmonary arterial hypertension Atherosclerosis of coronary artery of platinum heart without angina pectoris Paroxysmal atrial fibrillation [...] (Auto) 86.5 H, Lymph % (Auto)4.3 L, [place] % (Auto) 8.1, Eos % (Auto) 0.1, [...] acute osseous change is seen. Reading Location: [id number] Femur X-Ray 04/03/25 14:09 IMPRESSION: Nondisplaced impacted fracture of the subcapital region of the proximal left femur. Soft tissue swelling. Reading Location: [facility] Pelvis X-Ray 04/03/25 14:09 IMPRESSION: Residual contrast material is seen within at least 2 sigmoid diverticula. Significant degenerative changes are seen of the visualized lower lumbar spine. Mild sacroiliac joint degenerative changes are noted. Deformity of the left femoral neck is seen, concerning for possible basicervicalmildly impacted fracture. Additional imaging of the left hip may be performed, at this time. Reading Location: [facility] [id number] Brain CT 04/03/25 15:00 IMPRESSION: CHRONIC CHANGES. NO ACUTE FINDINGS. Reading Location: [facility] 04/03/25 15:00 IMPRESSION: DEGENERATIVE CHANGES OF THE CERVICAL SPINE. NO EVIDENCE OF SIGNIFICANT OSSEOUS CENTRAL CANAL OR NEURAL FORAMINAL STENOSIS. Reading Location: [facility] Assessment & Plan Assessment/Plan (1) Closed [...] Bonner MD Charges/Coding Visit Charges Inpatient E&M: 74184 Init Hosp L2 04/03/25 1735 Cosigner Signature (if applicable): CC: Dr. Victor M Rocha MD; Dr. Ashli Bonner MD~ Signed [facility]09-22-2025 Discharge summary [facility] Medical Records Department [address] [place] [address] Emergency Department Summary 04/03/25 MR#: [id number] Acct: [id number] Name: GUDELIA GUPTA Rep #:[id number] : 1940 84 From: Corwin Shearer DO PCP: Dr. Victor M Rcoha MD Status:RE G ER Location: ED ADDENDUM [...] does not have any pain anywhere else. [facility] Medical History Overweight (BMI 25.0-29.9) Coronary artery disease Iron deficiency anemia History of non-ST elevation myocardial infarction (NSTEMI) (2013) Longstanding persistent atrial fibrillation Essential (primary) hypertension Anxiety Hypothyroidism Hyperlipidemia Secondary pulmonary arterial hypertension Atherosclerosis of coronary artery of platinum heart without angina pectoris Paroxysmal atrial fibrillation [...] Patient follow commands that she was at [facility] the year is 2024 Skin: Warm, [...] surgeon Dr. Rodriguez who is on for [place] [facility] who shestates that she is seen [...] 86.5 H Lymph % (Auto) 4.3 L [place] % (Auto) 8.1 Eos % (Auto) 0.1 [...] acute osseous change is seen. Reading Location[id number] Femur X-Ray 04/03/25 14:09 IMPRESSION: Nondisplaced impacted fracture of the subcapital region of the proximal left femur. Soft tissue swelling. Reading Location: [facility] Pelvis X-Ray 04/03/25 14:09 IMPRESSION: Residual contrast material is seen within at least 2 sigmoid diverticula. Significant degenerative changes are seen of the visualized lower lumbar spine. Mild sacroiliac joint degenerative changes are noted. Deformity of the left femoral neck is seen, concerning for possible basicervicalmildly impacted fracture. Additional imaging of the left hip may be performed, at this time. Reading Location: [id number] Brain CT 04/03/25 15:00 IMPRESSION: CHRONIC CHANGES. NO ACUTE FINDINGS. Reading Location: [facility] [address] 04/03/25 15:00 IMPRESSION: DEGENERATIVE CHANGES OF THE CERVICAL SPINE. NO EVIDENCE OF SIGNIFICANT OSSEOUS CENTRAL CANAL OR NEURAL FORAMINAL STENOSIS. Reading Location: [facility] Discharge Plan Dx/Rx/DC Orders Clinical Impression: History of coronary artery stent placement, Hyperlipidemia, Essential (primary)hypertension, Heart failure, Closed left hip fracture Disposition Disposition: Acute Care Hospital [facility] What to do if you have Problems For any increased pain, shortness of breath, bleeding, nausea or vomiting, chestpain, or any unexpected problems, contact your Primary Care Provider. Call [facility] ([phone]) or report tothe closest Emergency Room. Call 911 if necessary. 04/03/25 1627 Cosigner Signature (if applicable): CC: Dr. Victor M Rocha MD ~ Signed [facility]09-22-2025 Radiology Diagnostic study note [facility] Imaging Services [address] [place] [address] Pelvis 1 or 2 Views MR#: [id number] Acct: [id number] Name: GUDELIA GUPTA Rep #: [id number] : 1940 F From: Goran Smith MD PCP: Dr. Victor M Rocha MD Status: RE G ER Study:Pelvis 1 or 2 Views Date of Exam: 04/03/25 Exam# [id number] Ordering Dr: Casandra Shearer DO PROCEDURE: PELVIS [...] be performed, at this time. Reading Location: [place] [address] CC: Dr. Victor M Rocha MD; Dr. Corwin Shearer DO ~ Criminal Attorney: Signed [facility]09-22-2025 Radiology Diagnostic study note [facility] Imaging Services [address] [place], [place] [id number] Chest 1 View (Portable) MR#: [id number] Acct: [id number] Name: GUDELIA GUPTA Rep #: [id number] : 1940 F 84 From: Goran Smith MD PCP: Dr. Victor M Rocha MD Status: RE G ER Study:Chest 1 View (Portable) Date of Exam: 04/03/25 Exam# [id number] Ordering Dr: Casandra Shearer DO PROCEDURE: CHEST [...] acute osseous change is seen. Reading Location: [id number] CC: Dr. Victor M Rocha MD; Dr. Corwin Shearer DO ~ Criminal Attorney: Signed [facility]09-22-2025 Radiology Diagnostic study note [facility] Imaging Services [address] [place] [address] [id number] Femur Min 2 Views MR#: [id number] Acct: [id number] Name: GUDELIA GUPTA Rep #: [id number] : 1940 F 84 From: Zaacrias Lozoya MD PCP: Dr. Victor M Rocha MD Status: RE G ER Study:Femur Min 2 Views Date of Exam: Exam# [id number] Ordering Dr: Casandra Shearer DO PROCEDURE: FEMUR [...] left femur. Soft tissue swelling. Reading Location: [place] [address] CC: Dr. Victor M Rocha MD; Dr. Corwin Shearer DO ~ Criminal Attorney: Signed [facility]09-22-2025 Radiology Diagnostic study note [facility] Imaging Services [address] [place], [place] [address] Spine Cervical without Contras MR#: [id number] Acct: [id number] Name: GUDELIA GUPTA Rep #: [id number] : 1940 F 84 From: Zacarias Lozoya MD PCP: Dr. Victor M Rocha MD Status: RE G ER Study:Spine Cervical without Contras Date of Exam: 04/03/25 Exam# [id number] Ordering Dr: Casandra Shearer DO PROCEDURE: SPINE [...] CANAL OR NEURAL FORAMINAL STENOSIS. Reading Location: [place] [address] CC: Dr. Victor M Rocha MD; Dr. Corwin Shearer DO ~ Criminal Attorney: Signed [facility]09-22-2025 Radiology Diagnostic study note [facility] Imaging Services [address] [place] [address] Brain/Head without Contrast MR#: [id number] Acct: [id number] Name: GUDELIA GUPTA Rep #: [id number] : 1940 F 84 From: Zacarias Lozoya MD PCP: Dr. Victor M Rocha MD Status: RE G ER Study:Brain/Head without Contrast Date of Exa m: 04/03/25 Exam# [id number] Ordering Dr: Casandra Shearer DO PROCEDURE: BRAIN/HEAD [...] CHRONIC CHANGES. NO ACUTE FINDINGS. Reading Location: [place] [address] CC: Dr. Victor M Rocha MD; Dr. Corwin Shearer DO ~ Criminal Attorney: Signed [facility]08-26-2025 History of Present illness Narrative* Victor M Rocha MD - 03/07/2025 2:20 PM EDT Chief Complaint Patient presents with: Recheck: 4 week f/u weakness HPI Gudelia Gupta is a 84 year old female who presents here today for follow up. Recording using [email or web address] software for draft documentation of the visit was discussed with the patient/authorized packaging sales representative; all questions welcomed and answered. Patient/authorized packaging sales representative agreed to proceed Gudelia Gupta [...] fatigue. She denies current involvement with her pick up attendant. Past medical history, appointments, medications, allergies reviewed. Previous Medical History PAST MEDICAL HISTORY Diagnosis Date Coronary atherosclerosis of unspecified type of vessel, platinum or graft Stent x 2010 Depressive disorder, [...] both eyes twice daily. blood sugar diagnostic (MapbarUCH VERIO TEST STRIPS) test strip TEST BLOOD [...] Past Histories independently gathered by the clinical marketing support manager and the remaining scribed note accurately [...] No Drug use: No documented in [facility]-2025 NoteHNO ID: [id number] Author: VICTOR M ROCHA MD Service: ? Author Type: Physician Type: Progress Notes Filed: 03/07/2025 17:56 Note Text: Chief Complaint Patient presents with: Recheck: 4 week f/u weakness HPI Gudelia Gupta is a 84 year old female who presents here today for follow up. Recording using [email or web address] software for draft documentation of the visit was discussed with the patient/authorized packaging sales representative; all questions welcomed and answered. Patient/authorized packaging sales representative agreed to proceed Gudelia Gupta [...] fatigue. She denies current involvement with her pick up attendant. Past medical history, appointments, medications, allergies reviewed. Previous Medical History PAST MEDICAL HISTORY Diagnosis Date Coronary atherosclerosis of unspecified type of vessel, platinum or graft Stent x 2010 Depressive disorder, [...] 50 mg 2 (more content not included)... [facility]08-15-2025 NoteHNO ID: [id number] Author: SHARA AGARWAL PA-C Service: ? Author Type: Physician Manager Background Type: Progress Notes Filed: 02/24/2025 13:25 Note Text: CHIEF COMPLAINT: Patient presents with: Positive FIT test Recheck This consult was requested by Carlos House APRN.CNP for an opinion regarding positive FIT, anemia. My final recommendations will be communicated to the requesting health care provider by way of the shared medical record for internal providers or letter via the [employer] for external providers. HPI: Gudelia [...] Abs Lymph 1.00 - 4.00 k/uL 1.47 [place]% % 12.7 Abs [place] <0.87 k/uL 0.75 Eosin% % 3.4 Abs [...] Coronary atherosclerosis of unspecified type of vessel, platinum or graft Stent x 2010 Depressive disorder, [...] 1 Drop in both (more content not included)...[facility]08-15-2025 History of Present illness Narrative* [...] for internal providers or letter via the [employer] for external providers. HPI: Gudelia [...] Abs Lymph 1.00 - 4.00 k/uL 1.47 [place]% % 12.7 Abs [place] <0.87 k/uL 0.75 Eosin% % 3.4 Abs [...] Coronary atherosclerosis of unspecified type of vessel, platinum or graft Stent x 2010 Depressive disorder, [...] both eyes twice daily. blood sugar diagnostic (TargetX VERIO TEST STRIPS) test strip TEST BLOOD [...] which included preparing to see the patient, [id number] patient care, completing clinical documentation, obtaining and/or [...] No Drug use: No documented in this encounterOhio [facility]08-14-2025 Telephone encounter Note * Telephone Encounter - Carlos House APRN.CNP - 02/23/2025 4:42 PM EDT The following approved medication requests have been transmitted electronically. Requested Prescriptions Pending Prescriptions Disp Refills furosemide (LASIX) 40 mg tablet 90 tablet 3 Sig: Take 1 tablet by mouth once daily. Carlos House APRN.CNP [facility]08-14-2025 Miscellaneous Notes* Telephone Encounter - Carlos [...] tablet by mouth once daily. [facility] February 23, 2025 10:23 AM documented in this encounterOhio [facility] Hospital08-14-2025 Telephone encounter Note * Telephone Encounter [...] tablet by mouth once daily. [facility] February 23, 2025 10:23 AM [facility]08-05-2025 NoteHNO ID: [id number] Author: SHARLENE CHERRY APRN.ACQUISITION ASSOCIATE Service: ? Author Type: Nurse Practitioner Type: [...] and due to labs was referred to [facility] ER where she was found to be [...] follow up and pacer check. Sharlene Cherry APRN.[facility]08-04-2025 NoteHNO ID: [id number] Author: SHANTI ASTORGA RN Service: ? Author Type: Registered Nurse Type: Progress Notes Filed: 02/14/2025 09:10 Note Text: Patient returned call and TCM completed. Pt plans to come to appt as scheduled for tomorrow. Shanti Astorga RNSouthern [facility]08-04-2025 History of Present illness Narrative* Shanti Astorga RN - 02/13/2025 4:50 PM EDT Patient returned call and TCM completed. Pt plans to come to appt as scheduled for tomorrow. Shanti Astorga RN * Shanti Astorga RN - 02/13/2025 2:13 PM EDT TRANSITION CARE MANAGEMENT (TCM) INITIAL CONTACT Sales Development Representative Outreach Provider Action/FYI: 7 day TCM Call [...] of Discharge 02/10/2025 SUMMARY: -Pt discharged from [facility] on 02/10/25. -Admitted for: Dysphagia Do you [...] recent hospitalization: Care Everywhere documented in this encounterOhio [facility]08-04-2025 Telephone encounter Note * Telephone Encounter - Kandi Woody MA - 02/13/2025 3:24 PM EDT Below left on Phan's confidential VM. Kandi Woody MA [facility]08-04-2025 Miscellaneous Notes* Telephone Encounter - Kandi [...] - 02/13/2025 3:00 PM EDT Maryann with [facility] Nursing calls for the followin) Pt is taking Cipro for uti for another week - shows it inhibits the metabolizing of simvastatin. 2) Amitriptyline/potassium - amitriptyline delays emptying of GI, potassium will sit too long in GItrack. 3) POC: Nursing will see pt once a week x 4 weeks to educate pt on CHF and medications. Call Phan @ [phone] messages as Maryann will be off work. Rose Manuel LPN documented in this encounterOhio State East Hospital08-04-2025 Telephone encounter Note * Telephone Encounter - Victor M Rocha MD - 02/13/2025 3:13 PM EDT Noted; OK to continue current medication, will monitor for any issues. OK for nursing visits as requested Victor M Rocha MD [facility]08-04-2025 Telephone encounter Note* Telephone Encounter - Rose Manuel LPN - 02/13/2025 3:00 PM EDT Maryann with [facility] Nursing calls for the followin) Pt is taking Cipro for uti for another week - shows it inhibits the metabolizing of simvastatin. 2) Amitriptyline/potassium - amitriptyline delays emptying of GI, potassium will sit too long in GItrack. 3) POC: Nursing will see pt once a week x 4 weeks to educate pt on CHF and medications. Call Phan @ [phone] with 's messages as Maryann will be off work. Rose Manuel LPN [facility]08-04-2025 NoteHNO ID: [id number] Author: SHANTI ASTORGA, RN Service: ? Author Type: Registered Nurse Type: Progress Notes Filed: 02/14/2025 09:10 Note Text: TRANSITION CARE MANAGEMENT (TCM) INITIAL CONTACT Sales Development Representative Outreach Provider Action/FYI: 7 day TCM Call [...] of Discharge 02/10/2025 SUMMARY: -Pt discharged from [facility] on 02/10/25. -Admitted for: Dysphagia Do you [...] Yes Medical records from recent hospitalization: [facility]25 NotePatient Outreach (FAMPWS) GUDELIA GUPTA ([id number]) 1940 F Date Time Provider Department 02/13/25 KANDI WOODY During your visit today, we recorded the following information about you: Shanti Astorga, NIYA 02/14/2025 9:10 AM Signed TRANSITION CARE MANAGEMENT (TCM) INITIAL CONTACT Sales Development Representative Outreach Provider Action/FYI: 7 day TCM Call [...] of Discharge 02/10/2025 SUMMARY: -Pt discharged from [facility] on 02/10/25. -Admitted for: Dysphagia Do you [...] eyes twice daily. 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 Victor M Rocha MD Status:DIS IN Location: [facility] [id number] Providers Date of Admission: 02/08/25 Date of Discharge: 02/10/25 Primary Care Physician: Dr. Victor M Rocha MD Consultations 02/10/25 11:54 Consult: Gastroenterology Routine Consulting Provider: [facility] Reason for Consult: dysphagia, abnormal modified [...] 1833 and chest x- (more content not included)...[facility]08-01-2025 Discharge summary Author Juice Elizabeth [facility] Note Date/Time February 10, 2025 6:2 6pm [facility] Medical Records Department [address] [place] [address] Instructions for Home/Discharge Instructions 02/10/25 1823 MR#: [id number] Acct: [id number] Name: GUDELIA GUPTA Rep #:[id number] : 1940 84 From: Juice Ley [facility] DO PCP: Dr. Victor M Rocha MD [...] Dr. Victor M Rocha MD ~ Signed [facility] Work Phone: 1(125) 847-589708-01-2025 Consult note Author Brock Leroy [facility] Note Date/Time February 10, 2025 6:3 8pm [facility] Medical Records Department [address] [place] [address] Consultation - GI 02/10/25 1819 MR#: [id number] Acct: [id number] Name: GUDELIA GUPTA Rep #:[id number] : 1940 84 From: Brock Leroy DO PCP: Dr. Victor M Rocha MD Status:AD M IN Location: [place] [id number]- HPI Consult Data Date of Consult: 02/10/25 [...] have narrowing at the base that esophagus. [facility] Medical History Coronary artery disease Iron deficiency anemia History of non-ST elevation myocardial infarction (NSTEMI) (2013) Longstanding persistent atrial fibrillation Essential (primary) hypertension Anxiety Hypothyroidism Hyperlipidemia Secondary pulmonary arterial hypertension Atherosclerosis of coronary artery of platinum heart without angina pectoris Paroxysmal atrial fibrillation [...] % (Auto) 58.0, Lymph % (Auto) 21.2, [place] % (Auto) 15.7 H, Eos % (Auto) [...] work up. Charges/Coding Visit Charges Inpatient E&M: 25323 Init Hosp L3 02/10/25 1289 <Electronically signed by Brock Friend DO> Cosigner Signature (if applicable): CC: Dr. Victor M Rocha MD~ Signed [facility] Work Phone: 1(493) 879-810908-01-2025 Consult note [facility] Medical Records Department [address] [place] [address] Consultation - GI 02/10/251818 MR#: [id number] Acct: [id number] Name: GUDELIA GUPTA Rep #:[id number] : 1940 84 From: Brock Leroy DO PCP: Dr. Victor M Rocha MD Status:AD M IN Location: [facility] [id number]- [id number] HPI Consult Data Date of Consult: [...] have narrowing at the base that esophagus. [facility] Medical History Coronary artery disease Iron deficiency anemia History of non-ST elevation myocardial infarction (NSTEMI) (2013) Longstanding persistent atrial fibrillation Essential (primary) hypertension Anxiety Hypothyroidism Hyperlipidemia Secondary pulmonary arterial hypertension Atherosclerosis of coronary artery of platinum heart without angina pectoris Paroxysmal atrial fibrillation [...] % (Auto) 58.0, Lymph % (Auto) 21.2, [place] % (Auto) 15.7 H, Eos % (Auto) [...] work up. Charges/Coding Visit Charges Inpatient E&M: 91750 Init Hosp L3 02/10/25 1841 Cosigner Signature (if applicable): CC: Dr. Victor M Rocha MD~ Signed [facility]08-01-2025 Discharge summary [facility] Medical Records Department [address] [place] [address] Instructions for Home/Discharge Instructions 02/10/25 1823 MR#: [id number] Acct: [id number] Name: GUDELIA GUPTA Rep #:[id number] : 1940 84 From: Juice galeana DO [...] can be placed): Home, Self Care 02/10/25 1826[facility] [place] CC: Dr. Deandre Xiao DO; Dr. Victor M Rocha MD ~ Signed [facility]08-01-2025 Progress note Author Joanne [facility] Note Date/Time February 10, 2025 2:1 6pm [facility] Medical Records Department [address] [place] [address] Progress Note 02/10/25 1401 MR#: [id number] Acct: [id number] Name: GUDELIA UGPTA Rep #:[id number] : 1940 84 From: Joanne Vo MD PCP: Dr. Victor M Rocha MD Status:AD M IN Location: [place] [address] Subjective Subjective Patient seen and examined. She [...] % (Auto) 58.0, Lymph % (Auto) 21.2, [place] % (Auto) 15.7 H, Eos % (Auto) [...] with GI. Charges/Coding Visit Charges Inpatient E&M: 35985 Subs Hosp L2 02/10/25 1416 <Electronically signed by Joanne Vo MD> Joanne Vo MD Cosigner Signature (if applicable): CC: ~ Signed [facility] Work Phone: 1(888) 724-514908-01-2025 Telephone encounter Note* Telephone Encounter - Kandi Woody MA - 02/10/2025 2:55 PM EDT Yovana notified. Kandi Woody MA' [facility]08-01-2025 Miscellaneous Notes* Telephone Encounter - Kandi [...] - 02/10/2025 10:48 AM EDT Yovana with [facility] calling and asking if PCP would be agreeable to following pt for Home Health Nursing and PT orders? Pt currently at [facility] for CHF Exac and will be discharged to home soon. Please call Yovana back with reply: [phone]. Shanti Astorga RN documented in this encounterOhio [facility] Hospital08-01-2025 Progress note [facility] Medical Records Department [address] [place] [address] Progress Note 02/10/25 1401 MR#: [id number] Acct: [id number] Name: GUDELIA GUPTA Rep #:[id number] : 1940 84 From: Joanne Vo MD PCP: Dr. Victor M Rocha MD Status:AD IN Location: [place] [address] Subjective Subjective Patient seen and examined. She [...] % (Auto) 58.0, Lymph % (Auto) 21.2, [place] % (Auto) 15.7 H, Eos % (Auto) [...] with GI. Charges/Coding Visit Charges Inpatient E&M: 66640 Subs Hosp L2 02/10/25 1413 Joanne Vo MD Cosigner Signature (if applicable): CC: ~ Signed [facility]08-01-2025 Telephone encounter Note* Telephone Encounter - Victor M Rocha MD - 02/10/2025 1:47 PM EDT Yes, I would be agreeable to following pt for Home Health Nursing and PT order Victor M Rocha MD [facility]08-01-2025 Telephone encounter Note* Telephone Encounter - Shanti Astorga RN - 02/10/2025 10:48 AM EDT Yovana with [facility] calling and asking if PCP would be agreeable to following pt for Home Health Nursing and PT orders? Pt currently at [facility] for CHF Exac and will be discharged to home soon. Please call Yovana back with reply: [phone]. Shanti Astorga RN [facility]07-31-2025 Progress note Author [facility]anne [facility] Note Date/Time February 09, 2025 1:30 pm [facility] Medical Records Department [address] [place] [address] Progress Note 02/09/25 1307 MR#: [id number] Acct: [id number] Name: GUDELIA GUPTA Rep #:[id number] : 1940 84 From: Joanne Vo MD PCP: Dr. Victor M Rocha MD Status:AD M IN Location: [place] [address]- Subjective Subjective Patient seen and examined. She [...] (Auto) 63.8, Lymph % (Auto) 18.5 L, [place] % (Auto) 13.6 H, Eos % (Auto) [...] (Auto) 68.9, Lymph % (Auto) 15.1 L, [place] % (Auto) 12.7 H, Eos % (Auto) [...] left base effusion. Moderate cardiomegaly. Reading Location: [facility] Physical Exam HEENT normocephalic, head/scalp atraumatic, moist [...] On xarelto Charges/Coding Visit Charges Inpatient E&M: 59457 Subs Hosp L2 02/09/25 1330 <Electronically signed by Joanne Vo MD> Joanne Vo MD Cosigner Signature (if applicable): CC: ~ Signed [facility] Work Phone: 1(890) 251-697707-31-2025 Progress note [facility] Medical Records Department [address] [place] [address] Progress Note 02/09/25 1307 MR#: [id number] Acct: [id number] Name: GUDELIA GUPTA Rep #:[id number] : 1940 84 From: Joanne Vo MD PCP: Dr. Victor M Rocha MD Status:AD M IN Location: [place] [address] Subjective Subjective Patient seen and examined. She [...] (Auto) 63.8, Lymph % (Auto) 18.5 L, [place] % (Auto) 13.6 H, Eos % (Auto) [...] (Auto) 68.9, Lymph % (Auto) 15.1 L, [place] % (Auto) 12.7 H, Eos % (Auto) [...] left base effusion. Moderate cardiomegaly. Reading Location: [facility] Physical Exam HEENT normocephalic, head/scalp atraumatic, moist [...] On xarelto Charges/Coding Visit Charges Inpatient E&M: 61655 Subs Hosp L2 02/09/25 1330 Joanne Vo MD Cosigner Signature (if applicable): CC: ~ Signed [facility]07-31-2025 History and physical note Author Deandre Mtz [facility] Note Date/Time February 09, 2025 6:35 am [facility] Medical Records Department [address] [place] [address] H&P Exam - Hospitalist 02/08/252017 MR#: [id number] Acct: [id number] Name: GUDELIA GUPTA Rep #:[id number] : 1940 84 From: Deandre Hart DO PCP: Dr. Victor M Rocha MD Status:AD M IN Location: [facility] [id number]- 1 HPI - General General Date of [...] times daily as needed who presents to [facility] ER complaining of shortness of breath. Ms. [...] is expected to extend beyond 2 midnights. [facility] Medical History Coronary artery disease Iron deficiency anemia History of non-ST elevation myocardial infarction (NSTEMI) (2013) Longstanding persistent atrial fibrillation Essential (primary) hypertension Anxiety Hypothyroidism Hyperlipidemia Secondary pulmonary arterial hypertension Atherosclerosis of coronary artery of platinum heart without angina pectoris Paroxysmal atrial fibrillation [...] (Auto) 63.8, Lymph % (Auto) 18.5 L, [place] % (Auto) 13.6 H, Eos % (Auto) [...] left base effusion. Moderate cardiomegaly. Reading Location: [facility] Assessment & Plan Assessment/Plan (1) Acute exacerbation [...] evaluate LVEF. Give acetaminophen as needed for aewo-fr-pyvinzyg (level 1-5/10) pain or fever. Give oxycodone/acetaminophen [...] 75 minutes. Charges/Coding Visit Charges Inpatient E&M: 37139 Init Hosp L3 02/09/25 0635 <Electronically signed by Deandre Xiao DO> Cosigner Signature (if applicable): CC: Dr. Deandre Xiao DO; Dr. Victor M Rocha MD~ Signed [facility] Work Phone: 1(875) 288-587607-31-2025 History and physical note [facility] Medical Records Department [address] [place] [address] H&P Exam - Hospitalist 02/08/252017 MR#: [id number] Acct: [id number] Name: GUDELIA GUPTA Rep #:[id number] : 1940 84 From: Deandre Hart DO PCP: Dr. Victor M Rocha MD Status:AD M IN Location: [facility] [id number]- 1 HPI - General General Date of [...] times daily as needed who presents to [facility] ER complaining of shortness of breath. Ms. [...] is expected to extend beyond 2 midnights. [facility] Medical History Coronary artery disease Iron deficiency anemia History of non-ST elevation myocardial infarction (NSTEMI) (2013) Longstanding persistent atrial fibrillation Essential (primary) hypertension Anxiety Hypothyroidism Hyperlipidemia Secondary pulmonary arterial hypertension Atherosclerosis of coronary artery of platinum heart without angina pectoris Paroxysmal atrial fibrillation [...] (Auto) 63.8, Lymph % (Auto) 18.5 L, [place] % (Auto) 13.6 H, Eos % (Auto) [...] left base effusion. Moderate cardiomegaly. Reading Location: [facility] Assessment & Plan Assessment/Plan (1) Acute exacerbation [...] to evaluate LVEF. Give acetaminophen as needed dbjknzy-dz-nazqlzba (level 1-5/10) pain or fever. Give oxycodone/acetaminophen [...] 75 minutes. Charges/Coding Visit Charges Inpatient E&M: 09481 Init Hosp L3 02/09/25 0635 Cosigner Signature (if applicable): CC: Dr. Deandre Xiao DO; Dr. Victor M Rocha MD~ Signed [facility]07-31-2025 Discharge summary Author Bernardo Judd [facility] Note Date/Time February 08, 2025 11:3 5pm [facility] Medical Records Department [address] [place] [address] Emergency Department Summary 02/08/25 MR#: [id number] Acct: [id number] Name: GUDELIA GUPTA Rep #:[id number] : 1940 84 From: Bernardo Ferris PCP: Dr. Victor M Rocha MD Status:AD M IN Location: [place] [address] HPI History of Present Illness Chief Complaint: General Illness [facility] Medical History Coronary artery disease Iron deficiency anemia History of non-ST elevation myocardial infarction (NSTEMI) (2013) Longstanding persistent atrial fibrillation Essential (primary) hypertension Anxiety Hypothyroidism Hyperlipidemia Secondary pulmonary arterial hypertension Atherosclerosis of coronary artery of platinum heart without angina pectoris Paroxysmal atrial fibrillation [...] Method Room Air Oxygen Flow Rate (L/min) [facility] Narrative Medical decision making narrative: HISTORY OF [...] Family Consults: Internal medicine (Dr. Elizabeth ) [facility] Narrative: The patient was initially [...] ischemic changes, similar morphology to EKG reviewed [id number] CBC with no leukocytosis, noted anemia which is worse than prior however similarto baseline studies BMP without significant [place] normalities, noted metabolic acidosis with a bicarb [...] to PCU This note was generated with Dimdim dictation software. It may contain incorrectwords, spelling, [...] (Auto) 63.8 Lymph % (Auto) 18.5 L [place] % (Auto) 13.6 H Eos % (Auto) [...] left base effusion. Moderate cardiomegaly. Reading Location: [facility] Discharge Plan Disposition Disposition: Acute Care Hospital [facility] Discharge Date/Time: 02/08/25 21:56 What to do if you have Problems For any increased pain, shortness of breath, bleeding, nausea or vomiting, chestpain, or any unexpected problems, contact your Primary Care Provider. Call [facility] ([phone]) or report to the closest Emergency Room. Call 911 if necessary. 02/08/25 9449 <Electronically signed by Bernardo Judd DO> Cosigner Signature (if applicable): CC: Dr. Victor M Rocha MD ~ Signed [facility] Work Phone: 1(303) 846-954107-30-2025 Discharge summary [facility] Medical Records Department [address] [place] [address] Emergency Department Summary 02/08/25 MR#: [id number] Acct: [id number] Name: GUDELIA GUPTA Rep #:[id number] : 1940 84 From: Bernardo Ferris PCP: Dr. Victor M Rocha MD Status:AD M IN Location: [address] History of Present Illness Chief Complaint: General Illness [facility] Medical History Coronary artery disease Iron deficiency anemia History of non-ST elevation myocardial infarction (NSTEMI) (2013) Longstanding persistent atrial fibrillation Essential (primary) hypertension Anxiety Hypothyroidism Hyperlipidemia Secondary pulmonary arterial hypertension Atherosclerosis of coronary artery of platinum heart without angina pectoris Paroxysmal atrial fibrillation [...] March 2024 Factors affecting care: As per [facility] Social determinants of health: Elderly History obtained from others: Family Consults: Internal medicine (Dr. Elizabeth ) [facility] Narrative: The patient was initially [...] ischemic changes, similar morphology to EKG reviewed [id number] CBC with no leukocytosis, noted anemia which [...] to PCU This note was generated with Dimdim dictation software. It may contain incorrectwords, spelling, [...] (Auto) 63.8 Lymph % (Auto) 18.5 L [place] % (Auto) 13.6 H Eos % (Auto) [...] left base effusion. Moderate cardiomegaly. Reading Location: [facility] Discharge Plan Disposition Disposition: Acute Care Hospital [facility] Discharge Date/Time: 02/08/25 21:56 What to do if you have Problems For any increased pain, shortness of breath, bleeding, nausea or vomiting, chestpain, or any unexpected problems, contact your Primary Care Provider. Call [facility] ([phone]) or report tothe closest Emergency Room. Call 911 if necessary. 02/08/252334 Cosigner Signature (if applicable): CC: Dr. Victor M Rocha MD ~ Signed [facility]07-30-2025 Evaluation note* Diagnosis Onset Date Resolution Status [...] 26, 2015 chronic February 21, 2025 10:05am [facility] Work Phone: 1(253) 860-874007-30-2025 Evaluation note* Diagnosis Onset Date Resolution Status [...] 5:13pm Hyperlipidemia chronic April 03, 2025 5:13pm [facility] Work Phone: 1(717) 658-748307-30-2025 Radiology Diagnostic study note [facility] Imaging Services [address] [place], [place] [address] Chest 1 View (Portable) MR#: [id number] Acct: [id number] Name: GUDELIA GUPTA Rep #: [id number] : 1940 F 84 From: Gwendolyn Montoya MD PCP: Dr. Victor M Rocha MD Status: RE G ER Study:Chest 1 View (Portable) Date of Exam: 02/08/25 Exam# [id number] Ordering Dr: Casandra Judd DO PROCEDURE: CHEST [...] left base effusion. Moderate cardiomegaly. Reading Location: [facility] CC: Dr. Victor M Rocha MD; Dr. Bernardo Judd DO ~ Criminal Attorney: Signed [facility]07-28-2025 Telephone encounter Note* Telephone Encounter - Moises Torres RN - 02/06/2025 3:17 PM EDT Pt called and is notified of providers results. Pt voices understanding. Moises Torres RN [facility]07-28-2025 Miscellaneous Notes* Telephone Encounter - Moises [...] lungs. Carlos House APRN.CNP documented in this encounter[facility] Telephone encounter Note * Telephone Encounter - Kandi Woody MA - 02/06/2025 1:13 PM EDT Tried to reach pt, VM full and unable to leave message or call back number. Kandi Woody MA [facility]07-28-2025 Telephone encounter Note* Telephone Encounter - Carlos House APRN.CNP - 02/06/2025 1:10 PM EDT Please let the patient know that her chest xray showed no pneumonia or fluid around heart or lungs. Carlos House APRN.CNP [facility]07-28-2025 History of Present illness Narrative* Andree [...] PATIENT PRESENTS WITH AN IMPLANTABLE OR ATTACHED OPERATIONS PROJECT MANAGER: No RADIOLOGY DEPARTMENT: General X-ray: Exam(s) Completed: Chest X-Ray PERIPHERAL IV DATA: Not applicable SIGNED BY: RT Odilon(Tessie) February 06, 2025 12:43 PM documented in this encounterOhio [facility]07-28-2025 NoteHNO ID: [id number] Author: ANDREE CLARKE RT(R) Service: ? Author Type: Epic Application Coordinator Type: Progress Notes Filed: 02/06/2025 12:55 Note [...] PATIENT PRESENTS WITH AN IMPLANTABLE OR ATTACHED OPERATIONS PROJECT MANAGER: No RADIOLOGY DEPARTMENT: General X-ray: Exam(s) Completed: Chest X-Ray PERIPHERAL IV DATA: Not applicable SIGNED BY: RT Odilon(R) February 06, 2025 12:43 [facility]07-28-2025 Instructions* Patient Instructions* Carlos House [...] in the lungs. - Please call your bush regenerator's office today to inform them of your [...] [facility] - Untreated urinary tract infections can [...] as soon as possible. - Call your bush regenerator today to report your symptoms and schedule a follow-up. - If you experience worsening symptoms, go to the emergency room immediately. Please take these symptoms seriously and do not delay seeking care in the future. Call our office or your bush regenerator promptly if similar issues arise. documented in this encounterOhio [facility]07-28-2025 History of Present illness Narrative* Carlos Houes APRN.CNP - 02/06/2025 11:00 AM EDT Chief Complaint Patient presents with: 6 Month Exam: Weakness and no energy HPI Gudelia Gupat is a 84 year old female who [...] has not reported these symptoms to her bush regenerator, Dr. Bueno, or his insurance sales assistant, whom sheusually sees. She has a pacemaker [...] intraventricular block - Advised patient to contact bush regenerator Dr. Bueno's office today to report symptoms [...] which included preparing to see the patient, jzsk-xv-djox patient care, completing clinical documentation, obtaining and/or reviewing separately obtained history, performing a medically appropriate examination, counseling and educating the pat ient/family/caregiver, and ordering medications, tests, or procedures. This note was partly generated using Dimdim voice recognition dictation and may contain some misspelled or inaccurate words missed on review. Recording using [email or web address] software for draft documentation of the visit was discussed with the patient/authorized packaging sales representative; all questions welcomed and answered. Patient/authorized packaging sales representative agreed to proceed documented in this encounterOhio [facility] Hospital07-28-2025 NoteHNO ID: [id number] Author: CARLOS HOUSE APRN.CNP Service: ? Author [...] has not reported these symptoms to her bush regenerator, Dr. Bueno, or his insurance sales assistant, whom she usually sees. She has [...] intraventricular block - Advised patient to contact bush regenerator Dr. Bueno's office today to report symptoms [...] CMP today, continue with Losartan Carlos House APRN.ACQUISITION ASSOCIATE RTO in 1 month. I spent a total of 51 minutes on the date of the service which included preparing to see the patient, vley-nz-tzsz patient care, completing clinical documentation, obtaining and/or reviewing separately obtained history, performing a medically appropriate examination, counseling and educating the patient/family/caregiver, and ordering medications, tests, or procedures. This note was partly generated using Dimdim voice recognition dictation and may contain some misspelled or inaccurate words missed on review. Recording using [email or web address] software for draft documentation of the visit was discussed with the patient/authorized packaging sales representative; all questions welcomed and answered. Patient/authorize (more content not included)...[facility]07-24-2025 NoteHNO ID: [id number] Author: PREMA SAMPSON RN Service: ? Author Type: Registered Nurse Type: Progress Notes Filed: 02/02/2025 14:50 Note Text: [facility] Telephonic Outreach Provider Action/FYI None Patient identified by Name and Date of . Discussed care with patient. [employer] call note: Health topics discussed today: -Understanding [...] Outcome Comprehensive Diabetes education provided 12/14/2024 02/02/2025 INYA Bryan 02/02/25 Discussed what diabetes is, the [...] you should be taking? (more content not included)...[facility] 02-02-2025 History of Present illness Narrative* Prema Sampson RN - 02/02/2025 2:47 PM EDT Images from the original note were not included. [facility] Telephonic Outreach Provider Action/FYI None Patient identified by Name and Date of . Discussed care with patient. [employer] call note: Health topics discussed today: -Understanding [...] - Bi-Weekly Outreach (Recurring) Disposition Based on clarifier, the following disposition is advised: No action needed Prema Sampson RN February 02, 2025 2:47 PM documented in this encounterOhio [facility] Hospital07-24-2025 NotePatient Outreach ([facility]) GUDELIA KEENE ([id number]) 1940 F Date Time Provider Department 02/02/25 PREMA SAMPSON AMBIAIN During your visit today, we recorded the following information about you: Prema Sampson RN 02/02/2025 2:50 PM Signed [facility] Telephonic Outreach Provider Action/FYI None Patient identified by Name and Date of . Discussed care with patient. [employer] call note: Health topics discussed today: -Understanding [...] Biannual PCP visit addressed 12/14/2024 09/13/2024 Prema Smapson RN Complete/Scheduled Recent appts 04/06/24, 02/01/24 - Next appt 02/06/25 CKD lab care gaps addressed 12/14/2024 09/13/2024 Prema Sampson RN Complete/Scheduled Diabetes lab care gaps addressed 12/14/2024 09/13/2024 Prema Sampson RN Complete/Scheduled HTN lab care gaps addressed 12/14/2024 09/13/2024 Prema Sampson RN Complete/Scheduled Patient-stated goal addressed (add comment) 12/14/2024 09/13/2024 Prema Sampson RN Complete To remain f (more content not included)...[facility]07-03-2025 NoteHNO ID: [id number] Author: PREMA SAMPSON RN Service: ? Author Type: Registered Nurse Type: Progress Notes Filed: 01/12/2025 13:59 Note Text: [facility] Telephonic Outreach Provider Action/FYI None Patient identified by Name and Date of . Discussed care with patient. [employer] call note: Health topics discussed today: - Understanding kidney disease - CKD zones sent via MyChart - Renal diet basics - Signs and symptoms to report Patient does not have a Librarian Specialist - PCP manages kidney care per patient [...] CKD Education: Controlling Potassium Disposition Based on clarifier, the following disposition is advised: No action needed Prema Sampson RN January 12, 2025 1:57 [facility] History of Present illness Narrative* Prema Sampson RN - 01/12/2025 1:57 PM EDT Images from the original note were not included. [facility] Care Path Telephonic Outreach Provider Action/FYI None Patient identified by Name and Date of . Discussed care with patient. [employer] call note: Health topics discussed today: - Understanding kidney disease - CKD zones sent via [employer] - Renal diet basics - Signs and symptoms to report Patient does not have a Librarian Specialist - PCP manages kidney care per patient [...] CKD Education: Controlling Potassium Disposition Based on clarifier, the following disposition is advised: No action needed Prema Sampson RN January 12, 2025 1:57 PM documented in this encounterOhio State [facility] Hospital07-03-2025 NotePatient Outreach ([facility]) GUDELIA GUPTA ([id number]) 1940 F Date Time Provider Department 01/12/25 PREMA SAMPSON [facility] During your visit today, we recorded the following information about you: Prema Sampson RN 01/12/2025 1:59 PM Signed [facility] Care Path Telephonic Outreach Provider Action/FYI None Patient identified by Name and Date of . Discussed care with patient. [employer] call note: Health topics discussed today: - Understanding kidney disease - CKD zones sent via [employer] - Renal diet basics - Signs and symptoms to report Patient does not have a Librarian Specialist - PCP manages kidney care per patient [...] Nutrition Comprehensive CHF education provided 12/14/2024 10/28/2024 Perma Sampson RN Complete Discussed monitoring weight regularly [...] ADLs, Fall Risk, SDOH 10/14/2024 09/13/2024 Prema Samspon RN Complete Annual Medicare Wellness visit addressed [...] CKD Education: Controlling Potassium Disposition Based on clarifier, the following disposition is advised: No action needed Prema Sampson RN January 12, 2025 1:57 PM Allergies As of Date: (more content not included)...[facility] 12-29-2024 NoteHNO ID: [id number] Author: PREMA SAMPSON RN Service: ? Author Type: Registered Nurse Type: Progress Notes Filed: 12/29/2024 14:26 Note Text: [facility] Telephonic Outreach Provider Action/FYI None Patient identified by Name and Date of . Discussed care with patient. [employer] call note: Health topics discussed today: - Goal BP reviewed - Understanding blood pressure - Talking to your doctor and when to go to the ER - Blood pressure and nutrition/Ways to lower salt in the diet - Types of antihypertensives - Importance of medication compliance Patient does not check blood pressure at home Blood pressure medications are managed by her Bun Machine Operator outside of [facility] Patient denies any [...] Blood Pressure AND Nutrition Disposition Based on clarifier, the following disposition is advised: No action needed Prema Sampson RN December 29, 2024 2:25 [facility]06-19-2025 History of Present illness Narrative* Prema Sampson RN - 12/29/2024 2:25 PM EDT Images from the original note were not included. [facility] Telephonic Outreach Provider Action/FYI None Patient identified by Name and Date of . Discussed care with patient. [employer] call note: Health topics discussed today: - Goal BP reviewed - Understanding blood pressure - Talking to your doctor and when to go to the ER - Blood pressure and nutrition/Ways to lower salt in the diet - Types of antihypertensives - Importance of medication compliance Patient does not check blood pressure at home Blood pressure medications are managed by her Bun Machine Operator outside of [facility] Patient denies any [...] Blood Pressure & Nutrition Disposition Based on clarifier, the following disposition is advised: No action needed Prema Sampson RN December 29, 2024 2:25 PM documented in this encounterOhio State [facility] Hospital06-19-2025 NotePatient Outreach ([facility]) GUDELIA GUPTA ([id number]) 1940 F Date Time Provider Department 12/29/24 PREMA SAMPSON During your visit today, we recorded the following information about you: Prema Sampson RN 12/29/2024 2:26 PM Signed [facility] Telephonic Outreach Provider Action/FYI None Patient identified by Name and Date of . Discussed care with patient. [employer] call note: Health topics discussed today: - Goal BP reviewed - Understanding blood pressure - Talking to your doctor and when to go to the ER - Blood pressure and nutrition/Ways to lower salt in the diet - Types of antihypertensives - Importance of medication compliance Patient does not check blood pressure at home Blood pressure medications are managed by her Bun Machine Operator outside of [facility] Patient denies any [...] Blood Pressure AND Nutrition Disposition Based on clarifier, the following disposition is advised: No action needed Prema Sampson RN December 29, 2024 2:25 PM Allergies As of Date: 12/29/2024 Noted Allergy Reaction POISON FANY 10/17/2005 SULFA (SULFONAMIDE ANTIBIOTICS) 10/17/2005 4 - Hives Date Reviewed: 08/12 (more content not included)...[facility] 12-15-2024 NoteHNO ID: [id number] Author: PREMA SAMPSON RN Service: ? 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 Requested Prescriptions Pending Prescriptions Disp Refills empagliflozin (JARDIANCE) 10 mg tablet 90 tablet 3 Sig: Take 1 tablet by mouth once daily. Take 1 tablet once daily in the morning Carlos House APRN.CNP [facility]05-16-2025 Miscellaneous Notes* Telephone Encounter - Carlos House APRN.CNP - 11/25/2024 12:14 PM EDT The following approved medication requests have been transmitted electronically. Requested Prescriptions Pending Prescriptions Disp Refills empagliflozin (JARDIANCE) 10 mg tablet 90 tablet 3 Sig: Take 1 tablet by mouth once daily. Take 1 tablet once daily in the morning Carlos House APRN.ACQUISITION ASSOCIATE * Telephone Encounter - Jasmina Mazariegos RN [...] 25, 2024 11:56 AM documented in this encounterOhio [facility] Hospital05-16-2025 Telephone encounter Note * Telephone Encounter - Jasmina Mazariegos RN - 11/25/2024 12:07 PM EDT Next appt 02/06. [facility]05-16-2025 Telephone encounter Note* Telephone Encounter - [...] tablet once daily in the morning Hawa uBstillo November 25, 2024 11:56 AM [facility]05-12-2025 NoteHNO ID: [id number] Author: BRIAN DONNELLY RN Service: ? Author Type: Registered Nurse Type: Progress Notes Filed: 11/21/2024 12:28 Note Text: [facility] Telephonic Outreach Provider Action/FYI Dr. Rocha: Pt was discharged home with oxygen. [place] like she did not need it and [...] - Bi-Weekly Outreach (Recurring) Disposition Based on clarifier, the following disposition is advised: No action needed (routed to pcp) Brian Donnelly RN November 21, 2024 12:15 [facility]05-12-2025 History of Present illness Narrative* Brian Donnelly RN - 11/21/2024 12:15 PM EDT Images from the original note were not included. [facility] Telephonic Outreach Provider Action/FYI Dr. Rocha: Pt was discharged home with oxygen. [place] like she did not need it and [...] - Bi-Weekly Outreach (Recurring) Disposition Based on clarifier, the following disposition is advised: No action needed (routed to pcp) Brian Donnelly RN November 21, 2024 12:15 PM documented in this encounterOhio State East Hospital05-12-2025 NotePatient Outreach ([facility]) GUDELIA GUPTA ([id number]) 1940 F Date Time Provider Department 11/21/24 BRIAN DONNELLYG During your visit today, we recorded the following information about you: Brian Donnelly RN 11/21/2024 12:28 PM Signed [facility] Care Path Telephonic Outreach Provider Action/ANTONIA Rocha: Pt was discharged home with oxygen. [place] like she did not need it and [...] - Bi-Weekly Outreach (Recurring) Disposition Based on clarifier, the following disposition is advised: No action [...] mouth daily at bed (more content not included)...[facility]05-09-2025 Evaluation note* Diagnosis Onset Date Resolution Status Admit Date Longstanding persistent atrial fibrillation chronic November 18 10:57am Presence of cardiac pacemaker April 26, 2015 chronic November 18, 2024 10:57am History of coronary artery stent placement September, resolved November 18, 2024 10:57am Essential (primary) hypertension inactive November 18, 2024 10:57am Hyperlipidemia inactive November 18 10:57am [facility] Work Phone: 1(567) 540-934105-09-2025 Evaluation note* Diagnosis Onset Date Resolution Status [...] sinus syndrome chronic February 08, 2025 8:40pm [facility] Work Phone: 1(984) 786-479405-09-2025 Evaluation note* Diagnosis Onset Date Resolution Status [...] sinus syndrome chronic February 08, 2025 8:40pm [facility] Work Phone: 1([phone]) [phone] Evaluation note* Diagnosis Onset Date Resolution Status [...] 26, 2015 inactive February 21, 2025 10:05am [facility] Work Phone: [phone]) [phone] NoteHNO ID: [id number] Author: PREMA SAMPSON RN Service: ? Author Type: Registered Nurse Type: Progress Notes Filed: 10/28/2024 11:49 Note Text: [facility] Care Path Telephonic Outreach Provider Action/FYI None Patient identified by Name and Date of . Discussed care with patient. [employer] call note: Health topics discussed today: - Understanding heart failure - Heart failure zones sent via [employer] - Importance of monitoring weight and reporting [...] - Bi-Weekly Outreach (Recurring) Disposition Based on clarifier, the following disposition is advised: No action needed Prema Sampson RN October 28, 2024 11:46 [facility]04-18-2025 History of Present illness Narrative* Prema Sampson RN - 10/28/2024 11:46 AM EDT Images from the original note were not included. [facility] Care [facility] Telephonic Outreach Provider Action/FYI None Patient identified by Name and Date of . Discussed care with patient. [employer] call note: Health topics discussed today: - Understanding heart failure - Heart failure zones sent via [employer] - Importance of monitoring weight and reporting [...] - Bi-Weekly Outreach (Recurring) Disposition Based on clarifier, the following disposition is advised: No action needed Prema Sampson RN October 28, 2024 11:46 AM documented in this encounterOhio State East Hospital04-18-2025 NotePatient Outreach ([facility]) GUDELIA GUPTA ([id number]) 1940 F Date Time Provider Department 10/28/24 PREMA SAMPSON During your visit today, we recorded the following information about you: Prema Sampson RN 10/28/2024 11:49 AM Signed [facility] Care Path Telephonic Outreach Provider Action/FYI None Patient identified by Name and Date of . Discussed care with patient. [employer] call note: Health topics discussed today: - Understanding heart failure - Heart failure zones sent via [employer] - Importance of monitoring weight and reporting [...] - Bi-Weekly Outreach (Recurring) Disposition Based on clarifier, the following disposition is advised: No action needed Prema (more content not included)...[facility]04-17-2025 Telephone encounter Note* Telephone Encounter - Carlos House APRN.CNP - 10/27/2024 12:57 PM EDT The following approved medication requests have been transmitted electronically. Requested Prescriptions Pending Prescriptions Disp Refills levothyroxine (SYNTHROID) 100 mcg tablet 90 tablet 3 Sig: Take 1 tablet by mouth once daily. Carlos House APRN.CNP [facility]04-17-2025 Miscellaneous Notes* Telephone Encounter - Carlos [...] Take 1 tablet by mouth once daily. Yovnaa Guerra October 27, 2024 9:54 AM documented in this encounterOhio State East Hospital04-17-2025 Telephone encounter Note * Telephone Encounter [...] Yovana Guerra October 27, 2024 9:54 AM [facility]03-28-2025 NoteHNO ID: [id number] Author: PREMA SAMPSON RN Service: ? Author Type: Registered Nurse Type: Progress Notes Filed: 10/07/2024 13:00 Note Text: [facility] Care Path Telephonic Outreach Provider Action/FYI None Patient identified by Name and Date of . Discussed care with patient. [employer] call note: Health topics discussed today: -How [...] - Bi-Weekly Outreach (Recurring) Disposition Based on clarifier, the following disposition is advised: No action needed Prema Sampson RN October 07, 2024 12:59 [facility]03-28-2025 History of Present illness Narrative* Prema Sampson RN - 10/07/2024 12:59 PM EDT Images from the original note were not included. [facility] Care Path Telephonic Outreach Provider Action/FYI None Patient identified by Name and Date of . Discussed care with patient. [employer] call note: Health topics discussed today: -How [...] - Bi-Weekly Outreach (Recurring) Disposition Based on clarifier, the following disposition is advised: No action needed Prema Sampson RN October 07, 2024 12:59 PM documented in this encounterOhio State East Hospital03-28-2025 NotePatient Outreach ([facility]) GUDELIA GUPTA ([id number]) 1940 F Date Time Provider Department 10/07/24 PREMA SAMPSON AMBRUSTYG During your visit today, we recorded the following information about you: Prema Sampson RN 10/07/2024 1:00 PM Signed [facility] Care Path Telephonic Outreach Provider Action/FYI None Patient identified by Name and Date of . Discussed care with patient. [employer] call note: Health topics discussed today: -How [...] - Bi-Weekly Outreach (Recurring) Disposition Based on clarifier, the following disposition is advised: No action [...] (0.035 %) o (more content not included)... [facility]03-04-2025 NoteHNO ID: [id number] Author: PREMA SAMPSON RN Service: ? Author Type: Registered Nurse Type: Progress Notes Filed: 09/13/2024 11:02 Note Text: CD[facility] ENROLLMENT Provider Action / FYI: None Patient identified by name and date of . Discussed care with patient. [employer] call note: Health topics discussed today: - [...] (add to Target comments) Disposition Based on clarifier, the following disposition is advised: No action needed Prema Sampson RN September 13, 2024 11:01 [facility]03-04-2025 History of Present illness Narrative* Prema Sampson RN - 09/13/2024 11:01 AM EST [facility] ENROLLMENT Provider Action / FYI: None Patient identified by name and date of . Discussed care with patient. [employer] call note: Health topics discussed today: - [...] (add to Target comments) Disposition Based on clarifier, the following disposition is advised: No action needed Prema Sampson RN September 13, 2024 11:01 AM documented in this encounterOhio State East Hospital03-04-2025 NotePatient Outreach ([facility]) GUDELIA GUPTA ([id number]) 1940 F Date Time Provider Department 09/13/24 CAMILLA, PREMA [facility] During your visit today, we recorded the following information about you: Prema Sampson, NIYA 09/13/2024 11:02 AM Signed CD ENROLLMENT Provider Action / FYI: None Patient identified by name and date of . Discussed care with patient. [employer] call note: Health topics discussed today: - [...] (add to Target comments) Disposition Based on clarifier, the following disposition is advised: No action needed Prema Sampson RN September 13, 2024 11:01 AM Allergies As of Date: 09/13/2024 Noted Allergy Reaction POISON FANY 10/17/2005 SULFA (SULFONAMIDE ANTIBIOTICS) 10/17/2005 4 - Hives Date Review (more content not included)...[facility]01-31-2025 Note* Addendum Note - Carlos House APRN.CNP - 08/12/2024 1:27 PM ESTAddended by: CARLOS HOUSE on: 08/12/2024 01:27 PM Modules accepted: Level of Service [facility]01-31-2025 Miscellaneous Notes* Addendum Note - Carlos House APRN.CNP - 08/12/2024 1:27 PM ESTAddended by: CARLOS HOUSE on: 08/12/2024 01:27 PM Modules accepted: Level of Service documented in this encounterOhio State East Hospital01-31-2025 History of Present illness Narrative* Carlos [...] - Personalized prevention plan provided Carlos House APRN.ACQUISITION ASSOCIATE Additional Concerns The following concerns were also [...] I50.32 -Stable, continue medications, continue following with [facility] 3. Hyperlipidemia, unspecified hyperlipidemia type [...] I48.0 -Stable, continue medications, continue following with [facility] 6. MGUS (monoclonal gammopathy of [...] empagliflozin Carlos House APRN.CNP documented in this encounterOhio State East Hospital01-31-2025 NoteHNO ID: [id number] Author: CARLOS HOUSE APRN.CNP Service: ? Author [...] - Personalized prevention plan provided Carlos House APRN.ACQUISITION ASSOCIATE Additional Concerns The following concerns were also [...] 15.6 (H) Platelet C (more content not included)...[facility]11-12-2024 Telephone encounter Note* Telephone Encounter - Kandi Woody MA - 05/24/2024 3:01 PM EST Faxed. Kandi Woody MA [facility]11-12-2024 Miscellaneous Notes* Telephone Encounter - Kandi Woody MA - 05/24/2024 3:01 PM EST Faxed. Kandi Woody MA * Telephone Encounter - Kandi Woody MA - 05/24/2024 1:20 PM EST Type of letter/form/fax request - Overnight Pulse Ox order Form received from fax on 1 floor and placed on MD desk (Dr. Rocha) for completion. Completed form needs to be faxed to [facility] at [phone]. [employer] requesting PCP sign order to complete an overnight pulse oximetry report on room air for pt. Route to [place] when form completed for processing documented in this encounterOhio State East Hospital11-12-2024 Telephone encounter Note * Telephone Encounter - Kandi Woody MA - 05/24/2024 1:20 PM EST Type of letter/form/fax request - Overnight Pulse Ox order Form received from fax on 1 floor and placed on MD desk (Dr. Rocha) for completion. Completed form needs to be faxed to [facility] at [phone]. [employer] requesting PCP sign order to complete an overnight pulse oximetry report on room air for pt. Route to [place] when form completed for processing [facility]11-04-20[facility] Telephone encounter Note* Telephone Encounter - Victor M Rocha MD - 05/16/2024 2:28 PM EST Noted Victor M Rocha MD [facility]11-04-2024 Miscellaneous Notes* Telephone Encounter - Victor [...] it maybe. Advised patient to call her bush regenerator to go over her meds from them to see if it maybe their meds. Patient will call back if needed. Gisselle Banda LPN documented in this encounterOhio State East Hospital11-04-2024 Telephone encounter Note * Telephone Encounter [...] it maybe. Advised patient to call her bush regenerator to go over her meds from them to see if it maybe their meds. Patient will call back if needed. Gisselle Banda LPN [facility]11-04-2024 Telephone encounter Note* Telephone Encounter - Kandi Woody MA - 05/16/2024 9:41 AM EST Faxed. Kandi Woody MA [facility]11-04-2024 Miscellaneous Notes* Telephone Encounter - Kandi Woody MA - 05/16/2024 9:41 AM EST Faxed. Kandi Woody MA * Telephone Encounter - Victor M Rocha MD - 05/13/2024 5:28 PM EDT Form done Victor M Rocha MD * Telephone Encounter - Cara Herring MA - 05/13/2024 2:31 PM EDT Type of form: Stop Anticoagulant prior to to pain management procedure. [facility]. Pt takes Xarelto daily, asking to be off two days prior to procedure. Form received via fax When form is completed, Fax form to [phone] Form has been forwarded to Physician Desk: Dr. Rocha. Cara Herring MA documented in this encounterOhio State East Hospital11-01-2024 Telephone encounter Note * Telephone Encounter - Victor M Rocha MD - 05/13/2024 5:28 PM EDT Form done Victor M Rocha MD [facility]11-01-2024 Telephone encounter Note* Telephone Encounter - Cara Herring MA - 05/13/2024 2:31 PM EDT Type of form: Stop Anticoagulant prior to to pain management procedure. [facility]. Pt takes Xarelto daily, asking to be off two days prior to procedure. Form received via fax When form is completed, Fax form to [phone] Form has been forwarded to Physician Desk: Dr. Rocha. Cara Herring MA [facility]10-25-2024 Telephone encounter Note* Telephone Encounter - Victor M Rocha MD - 05/06/2024 3:45 PM EDT OK to refill as ordered Victor M Rocha MD [facility]10-25-2024 Miscellaneous Notes* Telephone Encounter - Victor M Rocha MD - 05/06/2024 3:45 PM EDT OK to refill as ordered Victor M Rocha MD * Telephone Encounter - Elana Key RN - 05/06/2024 3:26 PM EDT Recent Office Visits - This Specialty 04/06/2024 Hospital discharge follow-up Family Medicine Yovana Kumar, DEANNA.ACQUISITION ASSOCIATE 02/01/2024 Type 2 diabetes mellitus with other [...] 06, 2024 1:54 PM documented in this encounterOhio State East Hospital10-25-2024 Telephone encounter Note * Telephone Encounter [...] 03/22/2021 8.3 Orders Pended Elana Key RN [facility]10-25-2024 Telephone encounter Note* Telephone Encounter - [...] Prema Peraza May 06, 2024 1:54 PM [facility] Work Phone: 1(504) 655-405910-10-2024 NoteHNO ID: [id number] Author: PRATIK LUIS RN Service: ? Author Type: Registered Nurse Type: Progress Notes Filed: 04/21/2024 11:38 Note Text: Transitional Care Management (TCM) Follow-Up Note PCP Update / Actionable Items N/A - No specialty updates needed Patient Source: Clx-gu-Agxyaoz (OON) Discharge Outreach Summary: Pt states she [...] and rotating with Tylenol. Patient discharged from [facility] Discharge date: 03/29/24 Admitted for: CHF [...] Pratik Luis RN April 21, 2024 11:24 [facility]10-10[facility]20[facility] History of Present illness Narrative* Pratik Luis RN - 04/21/2024 11:20 AM EDT Transitional Care Management (TCM) Follow-Up Note PCP Update / Actionable Items N/A - No specialty updates needed Patient Source: Sfw-tl-Bckofgn (OON) Discharge Outreach Summary: Pt states she [...] and rotating with Tylenol. Patient discharged from [facility] Discharge date: 03/29/24 Admitted for: CHF [...] 21, 2024 11:24 AM documented in this encounterOhio State East Hospital10-10-2024 NotePatient Outreach ([facility]) GUDELIA GUPTA ([id number]) 1940 F Date Time Provider Department 04/21/24 PRATIK LUIS During your visit today, we recorded the following information about you: Pratik Luis RN 04/21/2024 11:38 AM Signed Transitional Care Management (TCM) Follow-Up Note PCP Update / Actionable Items N/A - No specialty updates needed Patient Source: Jlj-mr-Hnapusq (OON) Discharge Outreach Summary: Pt states she [...] and rotating with Tylenol. Patient discharged from [facility] Discharge date: 03/29/24 Admitted for: CHF [...] eyes twice daily. - blood sugar diagnostic ([employer] VERIO TEST STRIPS) test strip TEST BLOOD [...] of 04/24/2022: Using [employer] (more content not included)...[facility]10-04-2024 Telephone encounter Note* Telephone Encounter - Carlos House APRN.CNP - 04/15/2024 9:06 AM EDT The following approved medication requests have been transmitted electronically. Requested Prescriptions Pending Prescriptions Disp Refills busPIRone (BUSPAR) 15 mg tablet 270 tablet 3 Sig: Take 1 tablet by mouth three times a day. Carlos House APRN.CNP [facility]10-04-2024 Miscellaneous Notes* Telephone Encounter - Carlos [...] 15, 2024 9:03 AM documented in this encounterOhio State East Hospital10-04-2024 Telephone encounter Note * Telephone Encounter [...] Cruz RN April 15, 2024 9:03 AM [facility]09-26-2024 NoteHNO ID: [id number] Author: PRATIK LUIS RN Service: ? Author Type: Registered Nurse Type: Progress Notes Filed: 04/07/2024 13:12 Note Text: Transitional Care Management (TCM) Follow-Up Note PCP Update / Actionable Items N/A - No specialty updates needed Patient Source: Zut-mg-Fjckaja (OON) Discharge Outreach Summary: Pt reports is has been a busy week with follow up appts and has been scheduled 04/11 to have her pacemaker replaced . TCM will continue to follow. Patient discharged from [facility] Discharge date: 03/29/24 Admitted for: CHF /SOB Readmission Risk: n/a Value-Based Contract: ACO Copied from [employer]: Narrative: Patient is a 83-year-old woman who [...] Pratik Luis RN April 07, 2024 1:09 [facility]09-26-2024 History of Present illness Narrative* Pratik Luis RN - 04/07/2024 12:58 PM EDT Transitional Care Management (TCM) Follow-Up Note PCP Update / Actionable Items N/A - No specialty updates needed Patient Source: Evx-ss-Xblmxjh (OON) Discharge Outreach Summary: Pt reports is has been a busy week with follow up appts and has been scheduled 04/11 to have her pacemaker replaced . TCM will continue to follow. Patient discharged from [facility] Discharge date: 03/29/24 Admitted for: CHF /SOB Readmission Risk: n/a Value-Based Contract: ACO Copied from [employer]: Narrative: Patient is a 83-year-old woman who [...] 07, 2024 1:09 PM documented in this encounterOhio State East Hospital09-26-2024 NotePatient Outreach ([facility]) GUDELIA GUPTA ([id number]) 1940 F Date Time Provider Department 04/07/24 PRATIK LUIS During your visit today, we recorded the following information about you: Pratik Luis RN 04/07/2024 1:12 PM Signed Transitional Care Management (TCM) Follow-Up Note PCP Update / Actionable Items N/A - No specialty updates needed Patient Source: Obx-jg-Hnovryq (OON) Discharge Outreach Summary: Pt reports is has been a busy week with follow up appts and has been scheduled 04/11 to have her pacemaker replaced . TCM will continue to follow. Patient discharged from [facility] Discharge date: 03/29/24 Admitted for: CHF /SOB Readmission Risk: n/a Value-Based Contract: ACO Copied from [employer]: Narrative: Patient is a 83-year-old woman who [...] - acetaminophen (TYLENOL EXTR (more content not included)...[facility]09-25-2024 Telephone encounter Note* Telephone Encounter - Elizabet Baker DO - 04/06/2024 3:10 PM EDT Okay. Thank you. Elizabet Baker DO [facility] Work Phone: 1(122) 449-398309-25-2024 Miscellaneous Notes* Telephone Encounter - Elizabet Baker [...] is scheduled. Shara Bailey documented in this encounterOhio State East Hospital09-25-2024 Telephone encounter Note * Telephone Encounter - Gemma Argueta RN - 04/06/2024 1:58 PM EDT Patient is refusing to schedule the PET scan or any appointment with our office going forward. She will call our office if she changes her mind. Gemma Argueta, RN [facility]09-25-2024 Instructions* Patient Instructions* Yovana Painter APRN.CNP - 04/06/2024 11:48 AM EDT Continue to take all medication as prescribed. Keep scheduled appointment with cardiology next week Monitor symptoms at home Any worsening symptoms go to ER Follow up as scheduled. documented in this encounterOhio State East Hospital09-25-2024 History of Present illness Narrative* Yovana [...] ox was 82% in office. Which facility: [facility] Date of visit: 03/25/2024-03/29/2024 Diagnosis: Acute exacerbation [...] Coronary atherosclerosis of unspecified type of vessel, platinum or graft Stent x 2010 Depressive disorder, [...] both eyes twice daily. blood sugar diagnostic (MapbarUCH VERIO TEST STRIPS) test strip TEST BLOOD SUGAR ONCE DAILY lancets (ONE TOUCH DELQFPay) 33 gauge Test blood sugar(s) 1 daily. [...] APRN.DICK This note was partially generated using [employer] recognition system. Note was reviewed for accuracy. There may be minor misspellings or grammar miscues with [employer] voice recognition. documented in this encounterOhio State East Hospital09-25-2024 NoteHNO ID: [id number] Author: YOVANA PAINTER APRN.ACQUISITION ASSOCIATE Service: ? Author Type: Nurse Practitioner Type: [...] ox was 82% in office. Which facility: [facility] Date of visit: 03/25/2024-03/29/2024 Diagnosis: Acute exacerbation [...] Coronary atherosclerosis of unspecified type of vessel, platinum or graft Stent x 2010 Depressive disorder, [...] both eyes twice daily. blood sugar diagnostic (CardbackTOUCH VERIO TEST STRIPS) test strip TEST BLOOD [...] date: 07/13/1962 Quit date: (more content not included)...[facility] 04-05-2024 Telephone encounter Note* Telephone Encounter - Elizabet Baker DO - 04/05/2024 5:05 PM EDT Would she be willing to at least have the PET scan? Elizabet Baker DO [facility]09-24-2024 Telephone encounter Note* Telephone Encounter - Vesta Jett - 04/05/2024 3:47 PM EDT Patient called stating she does not want any appointments in department. She canceled bmbx and pet scan. She did not want to reschedule. [facility] Work Phone: 1(478) 335-513509-24-2024 Telephone encounter Note* Telephone Encounter - Belle Fajardo LPN - 04/05/2024 1:16 PM EDT Patient is scheduled for PET scan 04/18/2024. Belle Fajardo LPN [facility]09-24-2024 Miscellaneous Notes* Telephone Encounter - Belle Fajardo LPN - 04/05/2024 1:16 PM EDT Patient is scheduled for PET scan 04/18/2024. Belle Fajardo LPN * Telephone Encounter - Elizabet Baker DO - 04/05/2024 12:57 PM EDT Sorry. She will need a whole body PET rather than MRI. Elizabet aBker DO * Telephone Encounter - Phan Garza [...] whom you spoke. F Staff Rad: Neuro [phone] The potential risks of the MRI exam [...] / MRI Safety Team documented in this encounterOhio State East Hospital09-24-2024 Telephone encounter Note * Telephone Encounter - Elizabet Baker DO - 04/05/2024 12:57 PM EDT Julius. She will need a whole body PET rather than MRI. Elizabet Baker DO [facility] Work Phone: 1(489) 171-347109-24-2024 Telephone encounter Note* Telephone Encounter - Phan [...] of the radiologist with whom you spoke. [facility] Staff Rad: Neuro [phone] The potential risks of the MRI exam [...] MR Imaging Education / MRI Safety Team [facility]09-20-2024 Telephone encounter Note* Telephone Encounter - Shara Bailey - 04/01/2024 9:27 AM EDT Check out comments: -MRI and PET when able -BMBX here -F/U 7-10 days after PET & BMBX scheduled. MRI must be triaged/scheduled at [facility] due to having a pacemaker. Please schedule OV once MRI is scheduled. Shara Bailey [facility]09-20-2024 Instructions* Patient Instructions* Elizabet Baker DO - 04/01/2024 9:00 AM EDT Hold Xarelto day prior to biopsy and resume the day after bone marrow biopsy. documented in this encounterOhio State East Hospital09-20-2024 NoteHNO ID: [id number] Author: ELIZABET BAKER DO Service: ? Author [...] since 2014. She was seen by her bush regenerator Dr. Root for increased fatigue and was [...] taking aspirin along with Xarelto. Has h/o ID (PCI with stents), atrial fibrillation (on rivaroxaban), [...] Admitted for CHF. Diuresed. Reviewed electronic record [facility]. Breathing much better. 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 HPI: The patient is an 83 year-old female with history of arrhythmia, status post pacemaker and radiofrequency ablation. Patient had been on Xarelto for atrial fibrillation since 2014. She was seen by her bush regenerator Dr. Root for increased fatigue and was [...] taking aspirin along with Xarelto. Has h/o ID (PCI with stents), atrial fibrillation (on rivaroxaban), [...] Review (MPA) Reviewed by Yong Altamirano MD [place] Free, Serum 3.3 - 19.4 mg/L 70.4 [...] preparing to see the patient (records from [facility]), zuly-ak-mbyz patient care, completing clinical documentation, obtaining and/orreviewing separately obtained history, counseling and educating the patient/family/caregiver, ordering medications, tests, or procedures, communicating with other HCPs (not separately reported), and communicating results to the patient/family/caregiver. Elizabet Baker DO documented in this encounterOhio [facility] Hospital09-19-[facility]24 Telephone encounter Note * Telephone Encounter - Yovana Painter APRN.CNP - 03/31/2024 3:17 PM EDT Noted Yovana Painter APRN.CNP [facility]09-19-2024 Miscellaneous Notes* Telephone Encounter - Yovana Painter APRN.CNP - 03/31/2024 3:17 PM EDT Noted Yovana Painter APRN.CNP * Telephone Encounter - Gisselle Banda LPN - 03/31/2024 11:31 AM EDT Phan from [facility] calling: Yesterday HH initiated and started Today 03/31/24- patient wishes to d/c services. PATIENT's is there and is managing O2 well. Tomorrow 04/01/24- [facility] well be d/c'd Please review Gisselle Banda LPN documented in this encounterOhio State East Hospital09-19-2024 Telephone encounter Note * Telephone Encounter - Gisselle Banda LPN - 03/31/2024 11:31 AM EDT Phan from [facility] calling: Yesterday initiated and started Today 03/31/24- patient wishes to d/c services. PATIENT's is there and is managing O2 well. Tomorrow 04/01/24- [facility] well be d/c'd Please review Gisselle Banda LPN [facility]-18[facility] Telephone encounter Note* Telephone Encounter - Shanti Astorga RN - 03/30/2024 3:54 PM EDT nurse Fanny with [facility] calling with the following: Update: Nursing Plan [...] these medications. Please call Fanny with reply: [phone] Thank you. [facility]09-18-2024 Miscellaneous Notes* Telephone Encounter - Shanti Astorga RN - 03/30/2024 3:54 PM EDT Fanny nurse with [facility] calling with the following: Update: Nursing Plan [...] these medications. Please call Fanny with reply: [phone] Thank you. documented in this encounterOhio State East Hospital09-18-2024 NoteHNO ID: [id number] Author: PRATIK LUIS RN Service: ? Author Type: Registered Nurse Type: Progress Notes Filed: 03/30/2024 09:41 Note Text: Transition Care Management (TCM) Initial Outreach PCP Update / Actionable Items HRTIC TCM Home Visit Referral Source of Stratification: TCM HUB Hospital Admission Status: Discharged Readmission Risk Score: n/a Patient's zip code: [address] Is zip code within program service area: No Patient meets program referral criteria: No Patient does not qualify for High Risk TCM Home Visit program due to: Readmission Risk Score does not meet criteria Disposition: Patient does not qualify for HRTIC, will provide TCM outreach follow-up for 30-days Patient Source: Get-bm-Xuzrocc (OON) Discharge Outreach Summary: Pt reports feeling [...] and when to call Patient discharged from [facility] Discharge date: 03/29/24 Admitted for: CHF Readmission Risk: n/a Value-Based Contract: ACO Contact: Contact made with patient: Yes Hi, my name is Pratik Luis RN and I am calling from the [facility] on behalf of your Primary Care [...] Yes Name of Home Care Agency: [facility] Phone number, if available: [phone] Start of Home Care services date: Today [...] like to speak with a social work team physician to help give you support for any [...] I will send your request to a helicopter pilot who will contact and assist you with [...] / completed during ou (more content not included)...[facility]09-18-2024 History of Present illness Narrative* Pratik Luis RN - 03/30/2024 9:22 AM EDT Transition Care Management (TCM) Initial Outreach PCP Update / Actionable Items HRTIC TCM Home Visit Referral Source of Stratification: TCM HUB Hospital Admission Status: Discharged Readmission Risk Score: n/a Patient's zip code: [address] Is zip code within program service area: No Patient meets program referral criteria: No Patient does not qualify for High Risk TCM Home Visit program due to: Readmission Risk Score does not meet criteria Disposition: Patient does not qualify for HRTIC, will provide TCM outreach follow-up for 30-days Patient Source: Yqy-sx-Imchogb (OON) Discharge Outreach Summary: Pt reports feeling [...] and when to call Patient discharged from [facility] Discharge date: 03/29/24 Admitted for: CHF Readmission Risk: n/a Value-Based Contract: ACO Contact: Contact made with patient: Yes Hi, my name is Pratik Luis RN and I am calling from the [facility] on behalf of your Primary Care [...] you? Yes Name of Home Care Agency: [facility] Phone number, if available: [phone] Start of Home Care services date: Today [...] like to speak with a social work team physician to help give you support for any [...] I will send your request to a helicopter pilot who will contact and assist you with [...] 30, 2024 9:28 AM documented in this encounterOhio State East Hospital09-18-2024 NotePatient Outreach (AMBC[facility]) GUDELIA GUPTA ([id number]) 1940 F Date Time Provider Department 03/30/24 PRATIK LUIS During your visit today, we recorded the following information about you: Pratik Luis RN 03/30/2024 9:41 AM Signed Transition Care Management (TCM) Initial Outreach PCP Update / Actionable Items HRTIC TCM Home Visit Referral Source of Stratification: TCM HUB Hospital Admission Status: Discharged Readmission Risk Score: n/a Patient's zip code: [address] Is zip code within program service area: No Patient meets program referral criteria: No Patient does not qualify for High Risk TCM Home Visit program due to: Readmission Risk Score does not meet criteria Disposition: Patient does not qualify for HRTIC, will provide TCM outreach follow-up for 30-days Patient Source: Rss-np-Wyblqvs (OON) Discharge Outreach Summary: Pt reports feeling [...] and when to call Patient discharged from [facility] Discharge date: 03/29/24 Admitted for: CHF Readmission Risk: n/a Value-Based Contract: ACO Contact: Contact made with patient: Yes Hi, my name is Pratik Luis RN and I am calling from the [facility] on behalf of your Primary Care [...] you? Yes Name of Home Care Agency: [facility] Phone number, if available: [phone] Start of Home Care services date: Today [...] like to speak with a social work team physician to help give you support for any [...] I will send your request to a helicopter pilot who will contact and assist you with [...] Following a low sodium (more content not included)...[facility]09-17-2024 Telephone encounter Note* Telephone Encounter - Paty Alan LPN - 03/29/2024 2:01 PM EDT Yovana with [facility] notified. Verbalized understanding. [facility]09-17-2024 Miscellaneous Notes* Telephone Encounter - Paty Alan LPN - 03/29/2024 2:01 PM EDT Yovana with [facility] notified. Verbalized understanding. * Telephone Encounter - Carlos House APRN.CNP - 03/29/2024 1:59 PM EDT Please let her know that Dr. Rocha's team will follow home health care orders. Okay to proceed. Carlos House APRN.CNP * Telephone Encounter - Rose Manuel LPN - 03/29/2024 1:57 PM EDT Yovana with [facility] calls to report pt was getting discharged today from [facility]. Pt has orders for Nursing, PT, and OT. Pt is getting sent home with new O2. Yovana is requesting provider's VO that pcp will follow pt while in HH. Rose Manuel LPN documented in this encounterOhio State East Hospital09-17-2024 Telephone encounter Note * Telephone Encounter - Carlos House APRN.CNP - 03/29/2024 1:59 PM EDT Please let her know that Dr. Rocha's team will follow home health care orders. Okay to proceed. Carlos House APRN.DICK [facility]09-17-2024 Telephone encounter Note* Telephone Encounter - Rose Manuel LPN - 03/29/2024 1:57 PM EDT Yovana with [facility] HH calls to report pt was getting discharged today from [facility]. Pt has orders for Nursing, PT, and OT. Pt is getting sent home with new O2. Yovana is requesting provider's VO that pcp will follow pt while in HH. Rose Manuel LPN [facility]09-17-2024 Telephone encounter Note* Telephone Encounter - Vesta Jett - 03/29/2024 10:57 AM EDT Scheduled with Nitin [facility] Work Phone: 1(970) 246-767509-17-2024 Miscellaneous Notes* Telephone Encounter - Vesta Jett [...] call Nitin to schedule documented in this encounterOhio State East Hospital09-16-2024 Telephone encounter Note * Telephone Encounter - Shara Bailey - 03/28/2024 2:13 PM EDT Left message for Nitin to return call. When she calls, please schedule an EST SIMPLE with Dr. Bhatia instructed below. Shara Bailey [facility]09-16-2024 Telephone encounter Note* Telephone Encounter - Elizabet Baker DO - 03/28/2024 12:47 PM EDT Simple visit would be fine. Can use a chemotherapy visit slot if needed. [facility] Work Phone: 1(214) 569-947909-16-2024 Telephone encounter Note* Telephone Encounter - Vesta Jett - 03/28/2024 10:50 AM EDT Nitin,daughter called stating patient was unable to finish 03/[address] Baker due to being sent to hospital. She is calling to reschedule. Please advise if this is just a simple office visit or if any testing/lab need to be done prior. Please call Nitin to schedule [facility]09-13-2024 NoteHNO ID: [id number] Author: ELIZABET BAKER, DO Service: ? Author [...] since 2014. She was seen by her bush regenerator Dr. Root for increased fatigue and was [...] taking aspirin along with Xarelto. Has h/o ID (PCI with stents), atrial fibrillation (on rivaroxaban), [...] Review (MPA) Reviewed by Yong Altamirano MD [place] Free, Serum 3.3 - 19.4 mg/L 70.4 [...] she is hypoxemic. Plan: -To ED at [facility]. -Spoke to Dr. Dodge. Portions of this documentation were copied and pasted from previous office visit notes in order to provide a cohesive continuity of the history. The note has been reviewed and edited and updated as necessary. 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 HPI: The patient is an 83 year-old female with history of arrhythmia, status post pacemaker and radiofrequency ablation. Patient had been on Xarelto for atrial fibrillation since 2014. She was seen by her bush regenerator Dr. Root for increased fatigue and was [...] taking aspirin along with Xarelto. Has h/o ID (PCI with stents), atrial fibrillation (on rivaroxaban), [...] Review (MPA) Reviewed by Yong Altamirano MD [place] Free, Serum 3.3 - 19.4 mg/L 70.4 [...] she is hypoxemic. Plan: -To ED at [facility]. -Spoke to Dr. Dodeg. Portions of this documentation were copied and pasted from previous office visit notes in order to provide a cohesive continuity of the history. The note has been reviewed and edited and updated as necessary. I spent a total of 20 minutes on the date of the service which included preparing to see the patient, ebpm-eg-bklq patient care, completing clinical documentation, obtaining and/or reviewing separately obtained history, performing a medically appropriate examination, counseling and educating the pat ient/family/caregiver, ordering medications, tests, or procedures, communicating with other HCPs (not separately reported), and communicating results to the patient/family/caregiver. Elizabet Baker DO documented in this encounterOhio State East Hospital09-13-2024 Telephone encounter Note * Telephone Encounter [...] SYMPTOMS: Denies other symptoms. Protocols used: Breathing Wllpcawhkh-IPWYE-TS [facility]09-13-2024 Miscellaneous Notes* Telephone Encounter - Shara [...] SYMPTOMS: Denies other symptoms. Protocols used: Breathing Lzuvfvisnp-CLJCC-GE documented in this encounterOhio State East Hospital08-22-2024 Telephone encounter Note * Telephone Encounter - Yovana Painter APRN.CNP - 03/03/2024 11:04 AM EDT The following approved medication requests have been transmitted electronically. Requested Prescriptions Pending Prescriptions Disp Refills omeprazole (PRILOSEC) 40 mg capsule 90 capsule 3 Sig: Take 1 capsule by mouth once daily. Yovana Painter APRN.CNP [facility]08-22-2024 Miscellaneous Notes* Telephone Encounter - Yovana [...] 03, 2024 9:45 AM documented in this encounterOhio State East Hospital08-22-2024 Telephone encounter Note * Telephone Encounter [...] Gudelia Peraza March 03, 2024 9:45 AM [facility]08-22-2024 Telephone encounter Note* Telephone Encounter - Shara Bailey - 03/03/2024 9:39 AM EDT Spoke with patient and scheduled. Shara Bailey [facility]08-22-2024 Miscellaneous Notes* Telephone Encounter - Shara [...] week after the CT. documented in this encounterOhio State East Hospital08-22-2024 Telephone encounter Note * Telephone Encounter - Belle Fajardo LPN - 03/03/2024 8:05 AM EDT Patient is aware of all information. PSS- please contact patient to schedule an OV as directed below. Belle Fajardo LPN [facility]08-22-2024 Telephone encounter Note* Telephone Encounter - Belle Fajardo LPN - 03/03/2024 8:05 AM EDT ----- Message from Elizabet Baker DO sent at 03/03/2024 6:58 AM EDT ----- Bone x-rays showed only the fracture of T8. Keep CT as scheduled. Follow up with me about a week after the CT. 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 HPI: The patient is an 83 year-old female with history of arrhythmia, status post pacemaker and radiofrequency ablation. Patient had been on Xarelto for atrial fibrillation since 2014. She was seen by her bush regenerator Dr. Root for increased fatigue and was [...] taking aspirin along with Xarelto. Has h/o ID (PCI with stents), atrial fibrillation (on rivaroxaban), [...] which included preparing to see the patient, vuaz-ap-dsoo patient care, completing clinical documentation, obtaining and/or reviewing separately obtained history, performing a medically appropriate examination, counseling and educating the pat ient/family/caregiver, ordering medications, tests, or procedures, communicating with other HCPs (not separately reported), and communicating results to the patient/family/caregiver. Elizabet Baker DO documented in this encounterOhio State East Hospital08-09-2024 Telephone encounter Note * Telephone Encounter - Victor M Rocha MD - 02/19/2024 1:56 PM EDT OK to refill as ordered Victor M Rocha MD [facility]08-09-2024 Miscellaneous Notes* Telephone Encounter - Victor [...] 19, 2024 11:19 AM documented in this encounterOhio State East Hospital08-09-2024 Telephone encounter Note * Telephone Encounter [...] Take 1 tablet by mouth once daily. hPan Peraza February 19, 2024 11:19 AM [facility] Work Phone: [phone] History of Present illness Narrative* Dani Canas PA - 02/16/2024 12:18 PM EDT Images from the original note were not included. This note was created using [employer]. Subjective Gudelia Gupta is a 83 year [...] rice bag that you warm up in [place] for her pain. She states this does [...] her shirt. She has been putting some qclj-fqr-perwctj ointment on it and bandages. Has not tried anything else for symptoms. No fevers. No other complaint. PAST MEDICAL HISTORY No date: Coronary atherosclerosis of unspecified type of vessel, platinum or graft Comment: Stent x , 2010 [...] both eyes twice daily. blood sugar diagnostic (MapbarUCH VERIO TEST STRIPS) test strip TEST BLOOD [...] evaluation. LUIS FELIPE Akins documented in this encounterOhio State East Hospital07-22-2024 Instructions* Patient Instructions* Kandi Woody MA - 02/01/2024 1:01 PM EDT Reduce the Glimepiride (amaryl) to 2 mg daily. Cut the 4 mg pill in half. Notify office if you continued to have the low blood sugar symptoms. Follow up in 6 months or sooner if needed. documented in this encounterOhio State East Hospital07-22-2024 History of Present illness Narrative* Victor [...] last visit. HTN & A-fib: Follows with [facility]. Has pacemaker. Denies checking her [...] Coronary atherosclerosis of unspecified type of vessel, platinum or graft Stent x 2010 Depressive disorder, [...] 01/27/2024 1.15 Monocytes % 01/27/2024 11.6 Abs [place] 01/27/2024 0.68 Eosinophils % 01/27/2024 2.7 Abs [...] 12/23/2023 1.41 Monocytes % 12/23/2023 10.5 Abs [place] 12/23/2023 0.69 Eosinophils % 12/23/2023 2.6 Abs [...] Past Histories independently gathered by the clinical marketing support manager and the remaining scribed note accurately [...] PM. Kandi Woody MA documented in this encounterOhio State East Hospital07-07-2024 Telephone encounter Note * Telephone Encounter - Rosalba Casey MA - 01/17/2024 8:27 AM EDT Pt was notified of the results. Pt verbalized understanding. Rosalba Casey MA [facility]07-07-2024 Miscellaneous Notes* Telephone Encounter - Rosalba [...] follow-up with primary care. documented in this encounterOhio State East Hospital07-07-2024 Telephone encounter Note * Telephone Encounter - Kortney Ruiz APRN.CNP - 01/17/2024 8:12 AM EDT Patient just had normal jaspreet in her urine. No significant bacterial growth in urine culture patient can continue antibiotic get it if it is helping. If patient's symptoms are persistent patient needs to follow-up with primary care. [facility] Work Phone: 1(285) 194-457807-05-2024 History of Present illness Narrative* Daniel Bucio [...] CAPSULE Daniel Bucio MD documented in this encounterOhio State East Hospital06-21-2024 History of Present illness Narrative* Brittny Rivero RN - 01/01/2024 3:30 PM EDT TCM Home Visit Referral Source of Stratification: [facility] Hospital Admission Status: Discharged Readmission Risk Score: n/a Patient's zip code: [address] Is zip code within program service area: [...] no issues, stable SUMMARY: Discharge Network Status: Hfh-gn-Fujxhzm (OON) Discharge Pt discharged from [facility] . Admitted for: Sob,Resp Failure Pacemaker check Dyspnea / hypoxemia Decompensated CHF DM / CKD / ASCVD Contact made with patient: Yes Hi my name is Brittny Rivero RN and I am calling from the [facility] on behalf of your PCP, Victor [...] like to speak with a social work team physician to help give you support for any [...] I will send your request to a helicopter pilot who will contact and assist you with [...] 01, 2024 4:39 PM documented in this encounterOhio State East Hospital06-21-2024 Telephone encounter Note * Telephone Encounter - Shara Bailey - 01/01/2024 11:58 AM EDT Spoke with patient and scheduled as directed. Shara Bailey [facility]06-21-2024 Miscellaneous Notes* Telephone Encounter - Shara [...] in about 8 weeks. documented in this encounterOhio State East Hospital06-18-2024 Telephone encounter Note * Telephone Encounter - Vesta Jett - 12/29/2023 8:39 AM EDT 1st attempt. Unable to leave message. Voicemail not set up. No My chart. Patient to schedule - -CBC/IRON STUDIES/CMP then OV with Dr. Baker in about 8 weeks [facility] Work Phone: 1(127) 184-744606-18-2024 Telephone encounter Note* Telephone Encounter - Naomi Chase LPN - 12/29/2023 8:10 AM EDT Please schedule for CBC/iron studies/CMP then OV with Dr. Baker in about 8 weeks. Left detailed message on identified voicemail concerning recent lab results. Informed PSS will be reaching out to her to get F/U scheduled. Naomi Chase LPN [facility]06-17-2024 Telephone encounter Note* Telephone Encounter - Elizabet Baker DO - 12/28/2023 6:15 PM EDT Iron and hemoglobin came up with iron infusions. Please schedule for CBC/iron studies/CMP then OV with me in about 8 weeks. [facility] Work Phone: [phone]) 972-779906-13-2024 History of Present illness Narrative* Victor M [...] 7 day TCM Pt was admitted to [facility] on 12/14/23 after presenting to ER with [...] in quite some time. Below copied from [employer]: [facility] Narrative Medical decision making narrative: [...] current medications 2. 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 Atherosclerotic heart disease of platinum coronary artery with other forms of angina [...] Victor M Rocha MD documented in this encounterOhio State East Hospital06-12-2024 Telephone encounter Note * Telephone Encounter - Shara Jung RN - 12/23/2023 2:13 PM EDT Pt was admitted for CHF. States she has a lot of new meds but is unable to state what they are and what dosage. Advised pt to take new meds to PCP appt scheduled for tomorrow so they are able to update med list. Pt stated understanding. [facility] Miscellaneous Notes* Telephone Encounter - Shara [...] list. Pt stated understanding. documented in this encounterOhio State East Hospital06-03-2024 Telephone encounter Note * Telephone Encounter - Melissa Doherty - 12/14/2023 2:13 PM EDT Cancelled as directed. Melissa Julian [facility]06-03-2024 Miscellaneous Notes* Telephone Encounter - Melissa Doherty - 12/14/2023 2:13 PM EDT Cancelled as directed. Melissa Julian * Telephone Encounter - Marimar Gutierrez LPN - 12/14/2023 1:49 PM EDT Admitted to ICU [facility]. Please cancel. Marimar Gutierrez LPN * Telephone Encounter - Elizabet Baker DO - 12/14/2023 1:32 PM EDT Noted. Thank you. Elizabet Baker DO * Telephone Encounter - Vesta Jett - 12/14/2023 9:54 AM EDT Keila with [facility] called stating they are sending patient to [facility]. Patient is scheduled today for labs and iron. She states patient may not be here for appointments. Left appointments on schedule for now. documented in this encounterOhio State East Hospital06-03-2024 Telephone encounter Note * Telephone Encounter - Marimar Gutierrez LPN - 12/14/2023 1:49 PM EDT Admitted to ICU [facility]. Please cancel. Marimar Gutierrez LPN [facility]06-03-2024 Telephone encounter Note* Telephone Encounter - Elizabet Baker DO - 12/14/2023 1:32 PM EDT Noted. Thank you. Elizabet Baker DO [facility] Work Phone: [phone]) 139-590806-03-2024 Telephone encounter Note* Telephone Encounter - Vesta Jett - 12/14/2023 9:54 AM EDT Keila with [facility] called stating they are sending patient to [facility]. Patient is scheduled today for labs and iron. She states patient may not be here for appointments. Left appointments on schedule for now. [facility] Work Phone: 1(821) 461-782105-31-2024 Nurse Note* Shara Jung RN - 12/11/2023 2:50 PM EDT Pt advised to f/u with bush regenerator regarding low BP. States she has a BP cuff at home but rarely uses it. Advised to start monitoring twice a day and keep a log. Contact Dr. Root's office with update. Pt stated understanding. [facility]05-31-2024 Nurse Note* Shara Jung RN - 12/11/2023 2:50 PM EDT Pt advised to f/u with bush regenerator regarding low BP. States she has a BP cuff at home but rarely uses it. Advised to start monitoring twice a day and keep a log. Contact Dr. Root's office with update. Pt stated understanding. documented in this encounterOhio [facility]05-17-[facility]24 Telephone encounter Note * Telephone Encounter - Cesar Sesay - 11/27/2023 9:42 AM EDT The patient is active with Medicare A & B along with [employer]. The patient's financial responsibility should be [...] Navigator intervention is needed at this time. [facility]05-17-2024 Miscellaneous Notes* Telephone Encounter - Cesar Sesay - 11/27/2023 9:42 AM EDT The patient is active with Medicare A & B along with [employer]. The patient's financial responsibility should be [...] needed at this time. documented in this encounterOhio [facility]05-14-[facility]24 Telephone encounter Note * Telephone Encounter - Pam Hollingsworth LISW - 11/24/2023 12:33 PM EDT Pt noted on [place] 1st time treatment report. Pt has a non-oncology regimen. No social work followup indicated. THANH Edmond-S [facility]05-14-2024 Miscellaneous Notes* Telephone Encounter - Pam Hollingsworth LISW - 11/24/2023 12:33 PM EDT Pt noted on [facility] 1st time treatment report. Pt has a non-oncology regimen. No social work followup indicated. THANH Edmond-Erich documented in this encounterOhio [facility]05-13-[facility]24 History of Present illness Narrative* Victor [...] Coronary atherosclerosis of unspecified type of vessel, platinum or graft Stent x 2010 Depressive disorder, [...] I27.21 Stable 5. 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 Stage 3b chronic kidney disease (HCC) - ICD9: 585.3, ICD10: N18.32 Monitor prn Follow up prn; call if not iproved with muscle relaxant and would consider US to evaluate right side I agree with the Chief Complaint, ROS, and Past Histories independently gathered by the clinical marketing support manager and the remaining scribed note accurately [...] PM. Kandi Woody MA documented in this encounterOhio [facility] Hospital05-08-2024 Telephone encounter Note * Telephone Encounter - Shara Bailey - 11/18/2023 12:46 PM EDT Orders linked to appointments. Shara Bailey [facility]05-08-2024 Miscellaneous Notes* Telephone Encounter - Shara Bailey - 11/18/2023 12:46 PM EDT Orders linked to appointments. Shara Bailey * Telephone Encounter - Elizabet Baker DO - 11/18/2023 12:31 PM EDT They are in [place]. Elizabet Baker DO * Telephone Encounter - Shara Bailey - 11/18/2023 10:28 AM EDT Spoke with patient and scheduled. Please file [place] Orders. Shara Bailey * Telephone Encounter - Belle Fajardo LPN - 11/18/2023 10:15 AM EDT PSS- please schedule patient for 5 doses of iron sucrose. Also, with the last dose she will need CBC/RETIC and IRON STUDIES. Belle Fajardo LPN documented in this encounterOhio [facility] Hospital05-08-2024 Telephone encounter Note * Telephone Encounter - Elizabet Baker DO - 11/18/2023 12:31 PM EDT They are in [place]. Elizabet Baker DO [facility] Work Phone: 1(934) 720-545505-08-2024 Telephone encounter Note* Telephone Encounter - Shara Bailey - 11/18/2023 10:28 AM EDT Spoke with patient and scheduled. Please file [place] Orders. Shara Bailey [facility]05-08-2024 Telephone encounter Note* Telephone Encounter - Belle Fajardo LPN - 11/18/2023 10:15 AM EDT PSS- please schedule patient for 5 doses of iron sucrose. Also, with the last dose she will need CBC/RETIC and IRON STUDIES. Belle Fajardo LPN [facility]05-07-2024 History of Present illness Narrative* Elizabet [...] since 2014. She was seen by her bush regenerator Dr. Root for increased fatigue and was [...] taking aspirin along with Xarelto. Has h/o ID (PCI with stents), atrial fibrillation (on rivaroxaban), [...] which included preparing to see the patient, [id number] patient care, completing clinical documentation, obtaining and/or reviewing separately obtained history, performing a medically appropriate examination, counseling and educating the pat ient/family/caregiver, ordering medications, tests, or procedures, communicating with other HCPs (not separately reported), and communicating results to the patient/family/caregiver. Elizabet Baker DO documented in this encounterOhio State [facility] Hospital04-19-2024 History of Present illness Narrative* Victor [...] chest pains, dizziness, or SOB. Follows with [facility], Cardio. Has pacemaker. Taking Xarelto [...] is sleeping well at night. Lipid/CAD: Reports penitentiary watching her diet. Denies any exercise. Doesn't [...] Coronary atherosclerosis of unspecified type of vessel, platinum or graft Stent x 2010 Depressive disorder, [...] both eyes twice daily. blood sugar diagnostic (MapbarUCH VERIO TEST STRIPS) test strip TEST BLOOD [...] 10/23/2023 1.98 Monocytes % 10/23/2023 10.5 Abs [place] 10/23/2023 1.01 (H) Eosinophils % 10/23/2023 2.8 [...] 13 Estimated Glomerular Shane* 10/23/2023 32 (L) [place] Free, Serum 10/23/2023 80.2 (H) Lambda Free, [...] ICD9: 273.1, ICD10: D47.2 Follow up with Braiding Machine Operator 6. 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 7. Iron deficiency anemia, unspecified iron deficiency anemia type - ICD9: 280.9, ICD10: D50.9 Follow up with Braiding Machine Operator Check labs in 3 months 8. Paroxysmal [...] ICD9: 780.79, ICD10: R53.83 Follow up with Braiding Machine Operator Increase Synthroid to 100 mg daily 12. Generalized weakness - ICD9: 780.79, ICD10: R53.1 Follow up with Braiding Machine Operator Increase Synthroid to 100 mg daily 13. SOB (shortness of breath) - ICD9: 786.05, ICD10: R06.02 Follow up with Braiding Machine Operator Follow up in 3 months with labs prior. I agree with the Chief Complaint, ROS, and Past Histories independently gathered by the clinical marketing support manager and the remaining scribed note accurately [...] AM. Kandi Woody MA documented in this encounterOhio State East Hospital02-19-2024 Miscellaneous Notes* Telephone Encounter - Carlos [...] you. Vania Walters LPN. documented in this encounterOhio State East Hospital12-11-2023 Miscellaneous Notes* Telephone Encounter - Victor [...] please advise the patient. documented in this encounterOhio State East Hospital12-11-2023 Instructions* Patient Instructions* Ana Kebede APRN.CNP - 06/22/2023 11:59 AM EST Call me and let me know what antibiotic you are taking documented in this encounterOhio State East Hospital12-11-2023 History of Present illness Narrative* Ana [...] Coronary atherosclerosis of unspecified type of vessel, platinum or graft Stent x 2010 Depressive disorder, [...] N18.32 - BASIC METABOLIC PNL Ana Kebede APRN.ACQUISITION ASSOCIATE Prescription instructions reviewed with patient as applicable. [...] which included preparing to see the patient, [id number] patient care, completing clinical documentation, obtaining and/or reviewing separately obtained history, performing a medically appropriate examination, counseling and educating the pat ient/family/caregiver, and ordering medications, tests, or procedures. documented in this encounterOhio State East Hospital11-24-2023 Instructions* Patient Instructions* Beverley Reed APRN.DICK [...] illness Beverley Reed APRN.DICK documented in this encounterOhio State East Hospital11-24-2023 History of Present illness Narrative* Beverley [...] Coronary atherosclerosis of unspecified type of vessel, platinum or graft Stent x 2010 Depressive disorder, [...] both eyes twice daily. blood sugar diagnostic (TargetX VERIO TEST STRIPS) test strip TEST BLOOD SUGAR ONCE DAILY lancets (ONE TOUCH DELQFPay) 33 gauge Test blood sugar(s) 1 daily. [...] Discussed expected course of illness Beverley Reed APRN.ACQUISITION ASSOCIATE documented in this encounterOhio State East Hospital10-17-2023 Instructions* Patient Instructions* Cara Herring Ma - 04/28/2023 10:54 AM EDT Bowels - To help with constipation use Miralax. Use as directed on bottle. Sleep - Can increase Buspar 15 mg to 3 times per day to see if this helps with sleep. documented in this encounterOhio State East Hospital10-17-2023 History of Present illness Narrative* Victor [...] chest pains, dizziness, or SOB. Follows with [facility], Cardio. Taking HCTZ 12.5 mg [...] 1 year from May 2022. Lipid/CAD: Reports penitentiary watching her diet. Denies any exercise. Doesn't [...] Coronary atherosclerosis of unspecified type of vessel, platinum or graft Stent x 2010 Depressive disorder, [...] Past Histories independently gathered by the clinical marketing support manager and the remaining scribed note accurately [...] AM. Cara Herring Ma documented in this encounterOhio State East Hospital06-24-2023 Miscellaneous Notes* Telephone Encounter - Yovana [...] you. Jessica Figueroa RN documented in this encounterOhio State East Hospital06-01-2023 History of Present illness Narrative* Victor M Rocha MD - 12/11/2022 2:20 PM EDT Images from the original note were not included. Chief Complaint Patient presents with: Hospital F/U: HPI Gudelia Gupta is a 82 year old female who presents here today for ER Follow Up.. Pt presented to [facility] ER on 12/04/22 with c/o abdominal pain. [...] wheezing intermittently. No SOB. Below copied from [place]: Chief Complaint: Abd Pain Narrative Narrative: Patient is an 82-year-old female with a past medical history of CAD, ID, on Eliquis for atrial fibrillation, hyperlipidemia who presents to the emergency department for lower abdominal pain that began at approximately 11 AM. Patient states she was baking bread when she developed lower abdominal pain like she had to go to the bathroom, sweatiness. She did get concerned because this is how she feltduring her first ID in 2009. Patient also states over the [...] Patient's currently has no history of ACS, ID is a initial troponin was negative, repeat [...] Coronary atherosclerosis of unspecified type of vessel, platinum or graft Stent x 2010 Depressive disorder, [...] current medications. 9. 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 Follow up as needed. Update Office if symptoms worsen. Follow up prn I agree with the Chief Complaint, ROS, and Past Histories independently gathered by the clinical marketing support manager and the remaining scribed note accurately [...] PM. Cara Herring Ma documented in this encounterOhio State East Hospital06-01-2023 History of Past illness Narrative* Problem [...] of this encounter (statuses as of 10/30/2023) [facility]-14[facility] History of Present illness Narrative* Victor [...] that lasts very briefly. Pt follows with [facility]. On current regimen of Norvasc 10 mg once daily, Losartan 100 mg once daily, HCTZ 12.5 mg daily and Toprol XL 25 mg daily. CAD/Lipid: Follows with [facility], has pacemaker. On current regimen [...] Coronary atherosclerosis of unspecified type of vessel, platinum or graft Stent x 2010 Depressive disorder, [...] both eyes twice daily. blood sugar diagnostic (TargetX VERIO TEST STRIPS) test strip TEST BLOOD [...] 09/03/2022 1.66 Monocytes % 09/03/2022 9.0 Abs [place] 09/03/2022 0.75 Eosinophils % 09/03/2022 3.1 Abs [...] PANEL BASIC 3. 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- ICD9: 414.01, ICD10: [...] Past Histories independently gathered by the clinical marketing support manager and the remaining scribed note accurately [...] AM. Kandi Woody Ma documented in this encounterOhio State East Hospital02-28-2023 History of Present illness Narrative* Ida [...] both eyes twice daily. blood sugar diagnostic (CardbackTOUCH VERIO TEST STRIPS) test strip TEST BLOOD [...] that has been stable around 1 g. [place] lambda ratio has been consistently normal. Not expected to progress into multiple myeloma or related neoplasm. Nevertheless recommend continued hematologic/oncologic yearly surveillance. The patient was able to ask questions and these were answered in detail. Ida Magaña MD cc: Viviana Rocha MD documented in this encounterOhio State East Hospital02-22-2023 Miscellaneous Notes* Telephone Encounter - Sole [...] draw and call patient. documented in this encounterOhio State East Hospital11-21-2022 Miscellaneous Notes* Telephone Encounter - Carlos [...] notify patient. Dorie Coffey documented in this encounterOhio State East Hospital08-22-2022 Miscellaneous Notes* Telephone Encounter - Victor M Rocha MD - 03/03/2022 11:44 AM EDT OK to refill as ordered Victor M Rocah MD * Telephone Encounter - Dorie Coffey [...] notify patient. Dorie Coffey documented in this encounterOhio State East Hospital07-05-2022 Instructions* Patient Instructions* Kandi Woody Ma [...] the new dosage arrives. documented in this encounterOhio State East Hospital07-05-2022 History of Present illness Narrative* Victor [...] [facility]. [facility] and was then sent to Ortho Dr. Cote back in 2017. Had xrays done at that time. She is not interested in having surgery on the knee. Past medical history, appointments, medications, allergies reviewed. Previous Medical History PAST MEDICAL HISTORY Diagnosis Date Coronary atherosclerosis of unspecified type of vessel, platinum or graft Stent x 2010 Depressive disorder, [...] both eyes twice daily. blood sugar diagnostic (CardbackTOUCH VERIO TEST STRIPS) test strip TEST BLOOD [...] weight loss. 3. 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- ICD9: 414.01, ICD10: [...] Past Histories independently gathered by the clinical marketing support manager and the remaining scribed note accurately [...] AM. Kandi Woody Ma documented in this encounterOhio State East Hospital04-01-2022 History of Present illness Narrative* Victor [...] for eye exams. She was seen at [facility] last year. She was on glimepiride in [...] Coronary atherosclerosis of unspecified type of vessel, platinum or graft Stent x 2010 Depressive disorder, [...] EMPTY STOMACH FOR THYROID blood sugar diagnostic (CardbackTOUCH VERIO TEST STRIPS) test strip TEST BLOOD SUGAR ONCE DAILY omeprazole (PRILOSEC) 40 mg capsule Take 1 capsule by mouth once daily. amitriptyline (ELAVIL) 25 mg tablet Take 1 tablet by mouth daily at bedtime. lancets (ONE TOUCH DELQFPay) 33 gauge Test blood sugar(s) 1 daily. [...] 09/02/2021 Reviewed by Kristy Quiles MD, PhD. ([id number]) WBC 09/02/2021 6.68 RBC 09/02/2021 4.33 Hemoglobin 09/02/2021 13.3 Hematocrit 09/02/2021 39.5 MCV 09/02/2021 91.2 MCH 09/02/2021 30.7 MCHC 09/02/2021 33.7 RDW-CV 09/02/2021 12.9 Platelet Count 09/02/2021 283 MPV 09/02/2021 10.3 Neut% 09/02/2021 65.9 Abs Neut (ANC) 09/02/2021 4.38 Lymph% 09/02/2021 21.6 Abs Lymph 09/02/2021 1.44 [place]% 09/02/2021 9.9 Abs [place] 09/02/2021 0.66 Eosin% 09/02/2021 2.2 Abs Eosin [...] Past Histories independently gathered by the clinical marketing support manager and the remaining scribed note accurately [...] AM. Kandi Woody Ma documented in this encounterOhio State East Hospital02-07-2017 History of Past illness Narrative* Problem [...] of this encounter (statuses as of 10/11/2021) [facility] of [facility] illness Narrative* Problem [...] of this encounter (statuses as of 01/14/2022) [facility] of [facility] illness Narrative* Problem [...] of this encounter (statuses as of 03/03/2022) [facility] Narrative* Problem [...] of this encounter (statuses as of 06/02/2022) [facility] Narrative* Problem [...] of this encounter (statuses as of 09/03/2022) [facility] Narrative* Problem [...] of this encounter (statuses as of 09/09/2022) [facility] Narrative* Problem [...] of this encounter (statuses as of 10/25/2022) [facility] Narrative* Problem [...] of this encounter (statuses as of 12/11/2022) [facility] Narrative* Problem [...] of this encounter (statuses as of 01/05/2023) [facility] Narrative* Problem [...] of this encounter (statuses as of 04/28/2023) [facility] Narrative* Problem [...] of this encounter (statuses as of 06/05/2023) [facility] Narrative* Problem [...] of this encounter (statuses as of 06/23/2023) [facility] Narrative* Problem [...] of this encounter (statuses as of 06/23/2023) [facility] Narrative* Problem [...] of this encounter (statuses as of 06/25/2023) [facility] Narrative* Problem [...] of this encounter (statuses as of 08/31/2023) [facility] Evaluation note* Diagnosis Onset Date Resolution Status Longstanding persistent atrial fibrillation chronic Sick sinus syndrome chronic Presence of cardiac pacemaker April 26, 2015 resolved Essential (primary) hypertension chronic Hyperlipidemia chronic Longstanding persistent atrial fibrillation chronic History of coronary artery stent placement September, resolved Presence of cardiac pacemaker April 26, 2015 resolved [facility] Work Phone: 1(354) 615-673910-15-2015 Evaluation note* Diagnosis Onset Date Resolution Status Longstanding persistent atrial fibrillation chronic Sick sinus syndrome chronic Presence of cardiac pacemaker April 26, 2015 resolved [facility] Work Phone: 1(885) 578-837003-01-2011 Evaluation note* Diagnosis Onset Date Resolution Status Essential (primary) hypertension chronic Hyperlipidemia chronic Longstanding persistent atrial fibrillation chronic History of coronary artery stent placement September, resolved Presence of cardiac pacemaker April 26, 2015 resolved [facility] Work Phone: Consult note Author [facility]jan [facility] Note Date/Time April 04, 2025 12:37pm [facility] Medical Records Department [address] [place] [address] Pre-Anesthesia Evaluation 04/04/25 1221 MR#: [id number] Acct: [id number] Name: GUDELIA GUPTA Rep #:[id number] : 1940 84 From: Niranjan Turner MD PCP: Dr. 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 Hx Hospitalization Yes 05/01/20 15:28 Any Problems [...] sips of water?: Yes PONV PONV - commercial leasing manager: PONV - commercial leasing manager Female HX of Motion Sickness HX of N/V After Surgery Non-Smoker Duration of Surgery greater than 60 minutes Number of Risk Factors PONV Score Height & Weight Height & Weight: Anesthesia: Height & Weight Height 5 ft 8 in 04/03/25 17:31 Weight: 89.3 kg 04/04/25 06:00 Body Mass Index (BMI) 29.8 04/04/25 06:00 Respiratory Assessment Respiratory Assessment - commercial leasing manager: Respiratory Tract Infection Hx - commercial leasing manager Hx Respiratory Tract Infection No 04/03/25 21:46 STOP Sleep Apnea STOP Sleep Apnea - commercial leasing manager: STOP Sleep Apnea - commercial leasing manager Hx Hypertension Yes 04/03/25 17:31 Hx Sleep [...] Tobacco Use History Tobacco Use History - commercial leasing manager: Tobacco Use History - commercial leasing manager Tobacco Use Non-smoker 12/19/20 19:00 Smoking Status Former smoker 04/03/25 17:31 Hx Tobacco Use No 04/03/25 17:31 Years Smoking Packs Smoked per Day Smoking Cessation Date was No - quit smoking greater 04/03/25 17:31 within the last 15 years than 15 years ago Hx Smoking Cessation Date 07/13/83 04/03/25 17:31 Hx Smoking Cessation No 04/03/25 17:31 Counseling Hematologic Medial History Hematologic Hx - commercial leasing manager: 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 Hx of Blood Transfusion No 04/03/25 17:31 [...] confused, unrespo /Reproduction History /Reproductive History - commercial leasing manager: /Reproductive Hx- commercial leasing manager Hx Now No 04/03/25 21:46 Gestational Age [...] mls @ 15 mls/hr 04/03/25 17:32 IV .[id number] PRN Additional IVPB Infusion Sodium Chloride 250 mls @ 15 mls/hr 04/03/25 17:32 IV .[id number] PRN Saline Flush Dextrose 250 mls @ 0 mls/hr 04/03/25 17:47 Dextrose 10%-Water IV .Q0M PRN HYPOGLYCEMIA Protocol As Directed Lactated Ringer's 1,000 mls @ 15 mls/hr 04/04/25 11:45 04/04/25 11:56 IV 15 mls/hr .Q48H RILEY Administration Insulin Human Lispro 0 unit 04/03/25 22:00 04/04/25 10:53 Insulin Lispro 100 Unit/Ml Insuln.Pen SC Not Given ACHS [facility] Protocol Levothyroxine Sodium 100 mcg 04/04/25 06:00 [...] arterial hypertension Atherosclerosis of coronary artery of platinum heart without angina pectoris Paroxysmal atrial fibrillation [...] no additional complaints, except as documented. 04/04/25 [id number] <Electronically signed by Niranjan arzola MD> Date _ Niranjan Turner MD Cosigner Signature: Date CC: ~ Signed [facility] Work Phone: Consult note Author Adonis Rodriguez [facility] Note Date/Time April 04, 2025 2:48pm [facility] Medical Records Department [address] [place] [id number] Consultation - Orthopedics 04/04/25 1444 MR#: [id number] Acct: [id number] Name: GUDELIA GUPTA Rep #:[id number] : 1940 84 From: Adonis Garcia PCP: Dr. Victor M Rocha MD Status:AD M IN Location: [place] [address]1 HPI Consult Data Date of Consult: 04/04/25 [...] denies dizziness head injury loss of consciousness. [facility] Medical History Overweight (BMI 25.0-29.9) Coronary artery disease Iron deficiency anemia History of non-ST elevation myocardial infarction (NSTEMI) (2013) Longstanding persistent atrial fibrillation Essential (primary) hypertension Anxiety Hypothyroidism Hyperlipidemia Secondary pulmonary arterial hypertension Atherosclerosis of coronary artery of platinum heart without angina pectoris Paroxysmal atrial fibrillation [...] (Auto) 86.5 H, Lymph % (Auto)4.3 L, [place] % (Auto) 8.1, Eos % (Auto) 0.1, [...] 76.2 H, Lymph % (Auto) 11.5 L, [place] % (Auto) 9.4, Eos % (Auto) 2.1, [...] acute osseous change is seen. Reading Location: -[id number] Femur X-Ray 04/03/25 14:09 IMPRESSION: Nondisplaced impacted fracture of the subcapital region of the proximal left femur. Soft tissue swelling. Reading Location: [facility] Pelvis X-Ray 04/03/25 14:09 IMPRESSION: Residual contrast material is seen within at least 2 sigmoid diverticula. Significant degenerative changes are seen of the visualized lower lumbar spine. Mild sacroiliac joint degenerative changes are noted. Deformity of the left femoral neck is seen, concerning for possible basicervicalmildly impacted fracture. Additional imaging of the left hip may be performed, at this time. Reading Location: -[id number] Brain CT 04/03/25 15:00 IMPRESSION: CHRONIC CHANGES. NO ACUTE FINDINGS. Reading Location: [facility] 04/03/25 15:00 IMPRESSION: DEGENERATIVE CHANGES OF THE CERVICAL SPINE. NO EVIDENCE OF SIGNIFICANT OSSEOUS CENTRAL CANAL OR NEURAL FORAMINAL STENOSIS. Reading Location: [facility]-1 Assessment & Plan Assessment/Plan (1) Closed [...] will continue on the medical service. 04/04/25 3378 <Electronically signed by Adonis Rodriguez MD> Cosigner Signature (if applicable): CC: Dr. Victor M Rocha MD~ Signed [facility] Work Phone: consult note Author Dwight Berg [facility] Note Date/Time April 06, 2025 11:37am [facility] Medical Records Department [address] [place] [address] Anesthesia Postop Eval I 04/04/25 1520 MR#: [id number] Acct: [id number] Name: GUDELIA GUPTA Rep #:[id number] : 1940 84 From: Dwight ZARAGOZA PCP: Dr. Victor M Rocha MD Status:AD M IN Y Race: C Location: [place] [address] Anesthesia: Postop Eval I Current Vital Signs [...] CRNA Cosigner Signature: Date CC: ~ Signed [facility] Work Phone: consult note Author Niranjan Turner [facility] Note Date/Time April 06, 2025 11:37am [facility] Medical Records Department [address] [place] [address] Anesthesia Postop Eval II 04/04/25 1753 MR#: [id number] Acct: [id number] Name: GUDELIA GUPTA Rep #:[id number] : 1940 84 From: Niranjan Turner MD PCP: Dr. Victor M Rocha MD Status:AD M IN Y Race: C Location: MS3 MS302 -1 Anesthesia Postop Eval I Sum Postop Eval Completion status Anesthesia document: Postop Eval 1 completed: Yes Anesthesia Postop Eval I Summary Anesthesia Postop Eval I Summary: Anesthesia Postop Eval I: Assessment Summary Airway patent Yes 04/04/25 15:20 BUS PERSON.TNES Spontaneous unlabored Yes 04/04/25 15:20 BUS PERSON.TNES respirations Mental status nausea No 04/04/25 15:20 BUS PERSON.TNES Vomiting No 04/04/25 15:20 BUS PERSON.TNES Anesthesia Postop Eval I: Fluid Summary Crystalloid volume administer 1,300 04/04/25 15:20 BUS PERSON.TNES (ml) Colloids volume administered ( ml) Blood Product volume administered (ml) Total IV fluid infused 1,300 04/04/25 15:20 BUS PERSON.TNES Anesthesia Postop Eval I: Summary Notes Anesthesia Complication No 04/04/25 15:20 BUS PERSON.TNES Anesthesia Complication Comment: Post-operative progress note Anesthesia: Postop Eval II Evaluation Mental status: Awake and Calm Pain Level: 2 nausea: No Vomiting: No Complications Anesthesia Complication: No 04/04/25 2333 <Electronically signed by Niranjan arzola MD> Date _ Niranjan Turner MD Cosigner Signature: Date CC: ~ Signed [facility] Work Phone: Consult note Author Karthikeyan Cormier [facility] Note Date/Time April 06, 2025 11:37am [facility] Medical Records Department [address] [place] [address] Counseling Note - Pharmacy 04/06/25 0946 MR#: [id number] Acct: [id number] Name: GUDELIA GUPTA Rep #:[id number] : 1940 84 From: Karthikeyan sewell PCP: Dr. Victor M Rocha MD Status:AD M IN Y Location: [place] WI908-0 Pharmacy [place] Med Reconciliation Pharmacy Service has performed discharge [...] Signature (if applicable): Date CC: ~ Signed [facility] Work Phone: Discharge summary Author Gunnar Mullen [facility] Note Date/Time April 06, 2025 9:39am [facility] Medical Records Department [address] [place] [address] Transfer to [facility] MR#: [id number] Acct: [id number] Name: GUDELIA GUPTA Rep #:[id number] : 1940 84 From: Gunnar Mullen DO PCP: Dr. Victor M Rocha MD Status:AD M IN Certification of patient admission REQUIRED AT TIME OF ADMISSION. I CERTIFY THAT POST-HOSPITAL ECF SERVICES ARE REQUIRED TO BE GIVEN ON AN IN-PATIENT BASIS BECAUSE OF THE ABOVE NAMED PATIENT'S NEED FOR SHELTER CARE ON A CONTINUING BASIS FOR THE CONDITION(S) FOR WHICH HE/SHE WAS RECEIVING IN-PATIENT HOSPITAL SERVICES PRIOR TO HIS/HER TRANSFER TO THE [facility]. 04/06/25 0939<Electronically signed by Gunnar Mullen DO> Diet Diet Order/Speech Therapy: INPATIENT [...] in before D/C Order can be placed): [facility] (1) Closed left hip fracture Qualifiers: Encounter type: initial encounter Qualified Code(s): S72.002A - Fracture of unspecified part of neck of left femur, initial encounter for closed fracture 04/06/25 0939 <Electronically signed by Gunnar Mullen DO> Cosigner Signature (if applicable): CC: Dr. Victor M Rocha MD; Dr. Ashli Bonner MD; Dr. Adonis Rodriguez MD ~ [facility] Work Phone: Discharge summary Author Gunnar Mullen [facility] Note Date/Time April 06, 2025 9:40am [facility] Medical Records Department [address] [place] [address] Discharge Summary 04/06/25 0939 MR#: [id number] Acct: [id number] Name: GUDELIA GUPTA Rep #:[id number] : 1940 84 From: Gunnar Mullen DO PCP: Dr. Victor M Rocha MD Status:AD IN Location: [place] [address] Providers Date of Admission: 04/03/25 Primary Care [...] in before D/C Order can be placed): [facility] Charges/Coding Visit Charges Inpatient E&M: 95902 Disch Hosp 04/06/25 0940 <Electronically signed by Gunnar Mullen DO> Cosigner Signature (if applicable): CC: Dr. Gunnar Mullen DO; Dr. Victor M Rocha MD~ Signed [facility] Work Phone: Evaluation note* Diagnosis Type 2 [...] use of insulin ([facility])- Primary Hyperlipidemia, unspecified hyperlipidemia type 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 Essential hypertension, benign Paroxysmal atrial fibrillation (HCC) Atrial fibrillation Hypothyroidism, unspecified type Stage 3a chronic kidney disease (HCC) Depression, unspecified depression type Benign essential tremor Essential and other specified forms of tremor Arthritis of knee Unspecified arthropathy, lower leg Need for COVID-19 vaccine [facility] Diagnosis Depression, unspecified depression type [facility] Diagnosis MGUS (monoclonal gammopathy of unknown significance)- Primary Monoclonal paraproteinemia Stage 3a chronic kidney disease (HCC) Osteoporosis with current pathological fracture with routine healing, unspecified osteoporosis type, subsequent encounter [facility] Diagnosis Type 2 diabetes mellitus with other diabetic kidney complication, 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 Hyperlipidemia, unspecified hyperlipidemia type 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 Essential hypertension, benign Paroxysmal atrial fibrillation (HCC) Atrial fibrillation Iron deficiency anemia, unspecified iron deficiency anemia type Hypothyroidism, unspecified type Benign neoplasm of meninges, unspecified (HCC) MGUS (monoclonal gammopathy of unknown significance) Monoclonal paraproteinemia [facility] Diagnosis Hospital discharge follow-up- Primary Other follow-up examination Colitis, infectious Infectious colitis, enteritis, and gastroenteritis UTI (urinary tract infection), bacterial Urinary tract infection, site not specified Benign neoplasm of meninges, 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) Stage 3a chronic kidney disease (HCC) Paroxysmal atrial fibrillation (HCC) Atrial fibrillation 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HCC) 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) [facility] Diagnosis Essential hypertension, benign- Primary Hyperlipidemia, [...] inoculation against influenza [facility] Diagnosis Urinary frequency- Primary Glucosuria Glycosuria [facility] Diagnosis Urinary tract infection without hematuria, site unspecified- Primary Stage 3b chronic kidney disease (HCC) [facility] Diagnosis Depression, unspecified depression type [facility] Diagnosis Type 2 diabetes mellitus with [...] arterial hypertension (HCC) 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) [facility] Diagnosis MGUS (monoclonal gammopathy of unknown significance)- Primary Monoclonal paraproteinemia Iron deficiency anemia, unspecified iron deficiency anemia type [facility] Diagnosis Acute right-sided low back pain without sciatica- Primary Iron deficiency anemia, unspecified iron deficiency anemia type Side pain Abdominal pain, unspecified site Secondary pulmonary arterial hypertension (HCC) 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) Stage 3b chronic kidney disease (HCC) [facility] Diagnosis Iron deficiency anemia, unspecified iron deficiency anemia type- Primary [facility] Diagnosis Iron deficiency anemia, unspecified iron deficiency anemia type- Primary [facility] Diagnosis Iron deficiency anemia, unspecified iron deficiency anemia type- Primary [facility] Diagnosis Iron deficiency anemia, unspecified iron deficiency anemia type- Primary [facility] Diagnosis Iron deficiency anemia, unspecified iron deficiency anemia type- Primary [facility] Diagnosis Chronic diastolic CHF (congestive heart failure) (HCC)- Primary Chronic diastolic heart failure 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) Essential hypertension, benign Paroxysmal atrial fibrillation (HCC) Atrial fibrillation Iron deficiency anemia, unspecified iron deficiency anemia type MGUS (monoclonal gammopathy of unknown significance) Monoclonal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 investigate or prosecute any alcohol or drug abuse patient.[facility] HospitalIn the event this information is protected by the Federal Confidentiality of Alcohol and Drug Abuse Patient Records regulations: The Federal rules restrict any use of the information to criminally investigate or prosecute any alcohol or drug abuse patient.[facility] HospitalIn the event this information is protected by the Federal Confidentiality of Alcohol and Drug Abuse Patient Records regulations: The Federal rules restrict any use of the information to criminally investigate or prosecute any alcohol or drug abuse patient.[facility] HospitalIn the event this information is protected by the Federal Confidentiality of Alcohol and Drug Abuse Patient Records regulations: The Federal rules restrict any use of the information to criminally investigate or prosecute any alcohol or drug abuse patient.[facility] HospitalIn the event this information is protected by the Federal Confidentiality of Alcohol and Drug Abuse Patient Records regulations: The Federal rules restrict any use of the information to criminally investigate or prosecute any alcohol or drug abuse patient.[facility] HospitalIn the event this information is protected by the Federal Confidentiality of Alcohol and Drug Abuse Patient Records regulations: The Federal rules restrict any use of the information to criminally investigate or prosecute any alcohol or drug abuse patient.[facility] HospitalIn the event this information is protected by the Federal Confidentiality of Alcohol and Drug Abuse Patient Records regulations: The Federal rules restrict any use of the information to criminally investigate or prosecute any alcohol or drug abuse patient.[facility] HospitalIn the event this information is protected by the Federal Confidentiality of Alcohol and Drug Abuse Patient Records regulations: The Federal rules restrict any use of the information to criminally investigate or prosecute any alcohol or drug abuse patient.[facility] HospitalIn the event this information is protected by the Federal Confidentiality of Alcohol and Drug Abuse Patient Records regulations: The Federal rules restrict any use of the information to criminally investigate or prosecute any alcohol or drug abuse patient.[facility] HospitalIn the event this information is protected by the Federal Confidentiality of Alcohol and Drug Abuse Patient Records regulations: The Federal rules restrict any use of the information to criminally investigate or prosecute any alcohol or drug abuse patient.[facility] HospitalIn the event this information is protected by the Federal Confidentiality of Alcohol and Drug Abuse Patient Records regulations: The Federal rules restrict any use of the information to criminally investigate or prosecute any alcohol or drug abuse patient.[facility] HospitalIn the event this information is protected by the Federal Confidentiality of Alcohol and Drug Abuse Patient Records regulations: The Federal rules restrict any use of the information to criminally investigate or prosecute any alcohol or drug abuse patient.[facility] HospitalIn the event this information is protected by the Federal Confidentiality of Alcohol and Drug Abuse Patient Records regulations: The Federal rules restrict any use of the information to criminally investigate or prosecute any alcohol or drug abuse patient.[facility] HospitalIn the event this information is protected by the Federal Confidentiality of Alcohol and Drug Abuse Patient Records regulations: The Federal rules restrict any use of the information to criminally investigate or prosecute any alcohol or drug abuse patient.[facility] HospitalIn the event this information is protected by the Federal Confidentiality of Alcohol and Drug Abuse Patient Records regulations: The Federal rules restrict any use of the information to criminally investigate or prosecute any alcohol or drug abuse patient.[facility] HospitalIn the event this information is protected by the Federal Confidentiality of Alcohol and Drug Abuse Patient Records regulations: The Federal rules restrict any use of the information to criminally investigate or prosecute any alcohol or drug abuse patient.[facility] HospitalIn the event this information is protected by the Federal Confidentiality of Alcohol and Drug Abuse Patient Records regulations: The Federal rules restrict any use of the information to criminally investigate or prosecute any alcohol or drug abuse patient.[facility] HospitalIn the event this information is protected by the Federal Confidentiality of Alcohol and Drug Abuse Patient Records regulations: The Federal rules restrict any use of the information to criminally investigate or prosecute any alcohol or drug abuse patient.[facility] HospitalIn the event this information is protected by the Federal Confidentiality of Alcohol and Drug Abuse Patient Records regulations: The Federal rules restrict any use of the information to criminally investigate or prosecute any alcohol or drug abuse patient.[facility] HospitalIn the event this information is protected by the Federal Confidentiality of Alcohol and Drug Abuse Patient Records regulations: The Federal rules restrict any use of the information to criminally investigate or prosecute any alcohol or drug abuse patient.[facility] HospitalIn the event this information is protected by the Federal Confidentiality of Alcohol and Drug Abuse Patient Records regulations: The Federal rules restrict any use of the information to criminally investigate or prosecute any alcohol or drug abuse patient.[facility] HospitalIn the event this information is protected by the Federal Confidentiality of Alcohol and Drug Abuse Patient Records regulations: The Federal rules restrict any use of the information to criminally investigate or prosecute any alcohol or drug abuse patient.[facility] HospitalIn the event this information is protected by the Federal Confidentiality of Alcohol and Drug Abuse Patient Records regulations: The Federal rules restrict any use of the information to criminally investigate or prosecute any alcohol or drug abuse patient.[facility] HospitalIn the event this information is protected by the Federal Confidentiality of Alcohol and Drug Abuse Patient Records regulations: The Federal rules restrict any use of the information to criminally investigate or prosecute any alcohol or drug abuse patient.[facility] HospitalIn the event this information is protected by the Federal Confidentiality of Alcohol and Drug Abuse Patient Records regulations: The Federal rules restrict any use of the information to criminally investigate or prosecute any alcohol or drug abuse patient.[facility] HospitalIn the event this information is protected by the Federal Confidentiality of Alcohol and Drug Abuse Patient Records regulations: The Federal rules restrict any use of the information to criminally investigate or prosecute any alcohol or drug abuse patient.[facility] HospitalIn the event this information is protected by the Federal Confidentiality of Alcohol and Drug Abuse Patient Records regulations: The Federal rules restrict any use of the information to criminally investigate or prosecute any alcohol or drug abuse patient.[facility] HospitalIn the event this information is protected by the Federal Confidentiality of Alcohol and Drug Abuse Patient Records regulations: The Federal rules restrict any use of the information to criminally investigate or prosecute any alcohol or drug abuse patient.[facility] HospitalIn the event this information is protected by the Federal Confidentiality of Alcohol and Drug Abuse Patient Records regulations: The Federal rules restrict any use of the information to criminally investigate or prosecute any alcohol or drug abuse patient.[facility] HospitalIn the event this information is protected by the Federal Confidentiality of Alcohol and Drug Abuse Patient Records regulations: The Federal rules restrict any use of the information to criminally investigate or prosecute any alcohol or drug abuse patient.[facility] HospitalIn the event this information is protected by the Federal Confidentiality of Alcohol and Drug Abuse Patient Records regulations: The Federal rules restrict any use of the information to criminally investigate or prosecute any alcohol or drug abuse patient.[facility] HospitalIn the event this information is protected by the Federal Confidentiality of Alcohol and Drug Abuse Patient Records regulations: The Federal rules restrict any use of the information to criminally investigate or prosecute any alcohol or drug abuse patient.[facility] HospitalIn the event this information is protected by the Federal Confidentiality of Alcohol and Drug Abuse Patient Records regulations: The Federal rules restrict any use of the information to criminally investigate or prosecute any alcohol or drug abuse patient.[facility] HospitalIn the event this information is protected by the Federal Confidentiality of Alcohol and Drug Abuse Patient Records regulations: The Federal rules restrict any use of the information to criminally investigate or prosecute any alcohol or drug abuse patient.[facility] HospitalIn the event this information is protected by the Federal Confidentiality of Alcohol and Drug Abuse Patient Records regulations: The Federal rules restrict any use of the information to criminally investigate or prosecute any alcohol or drug abuse patient.[facility] HospitalIn the event this information is protected by the Federal Confidentiality of Alcohol and Drug Abuse Patient Records regulations: The Federal rules restrict any use of the information to criminally investigate or prosecute any alcohol or drug abuse patient.[facility] HospitalIn the event this information is protected by the Federal Confidentiality of Alcohol and Drug Abuse Patient Records regulations: The Federal rules restrict any use of the information to criminally investigate or prosecute any alcohol or drug abuse patient.[facility] HospitalIn the event this information is protected by the Federal Confidentiality of Alcohol and Drug Abuse Patient Records regulations: The Federal rules restrict any use of the information to criminally investigate or prosecute any alcohol or drug abuse patient.[facility] HospitalIn the event this information is protected by the Federal Confidentiality of Alcohol and Drug Abuse Patient Records regulations: The Federal rules restrict any use of the information to criminally investigate or prosecute any alcohol or drug abuse patient.[facility] HospitalIn the event this information is protected by the Federal Confidentiality of Alcohol and Drug Abuse Patient Records regulations: The Federal rules restrict any use of the information to criminally investigate or prosecute any alcohol or drug abuse patient.[facility] HospitalIn the event this information is protected by the Federal Confidentiality of Alcohol and Drug Abuse Patient Records regulations: The Federal rules restrict any use of the information to criminally investigate or prosecute any alcohol or drug abuse patient.[facility] HospitalIn the event this information is protected by the Federal Confidentiality of Alcohol and Drug Abuse Patient Records regulations: The Federal rules restrict any use of the information to criminally investigate or prosecute any alcohol or drug abuse patient.[facility] HospitalIn the event this information is protected by the Federal Confidentiality of Alcohol and Drug Abuse Patient Records regulations: The Federal rules restrict any use of the information to criminally investigate or prosecute any alcohol or drug abuse patient.[facility] HospitalIn the event this information is protected by the Federal Confidentiality of Alcohol and Drug Abuse Patient Records regulations: The Federal rules restrict any use of the information to criminally investigate or prosecute any alcohol or drug abuse patient.[facility] HospitalIn the event this information is protected by the Federal Confidentiality of Alcohol and Drug Abuse Patient Records regulations: The Federal rules restrict any use of the information to criminally investigate or prosecute any alcohol or drug abuse patient.[facility] HospitalIn the event this information is protected by the Federal Confidentiality of Alcohol and Drug Abuse Patient Records regulations: The Federal rules restrict any use of the information to criminally investigate or prosecute any alcohol or drug abuse patient.[facility] HospitalIn the event this information is protected by the Federal Confidentiality of Alcohol and Drug Abuse Patient Records regulations: The Federal rules restrict any use of the information to criminally investigate or prosecute any alcohol or drug abuse patient.[facility] HospitalIn the event this information is protected by the Federal Confidentiality of Alcohol and Drug Abuse Patient Records regulations: The Federal rules restrict any use of the information to criminally investigate or prosecute any alcohol or drug abuse patient.[facility] Reason for Visit (unrecogniz ed section [...] Elizabet Baker DO [address] [place] [address] [facility] [address] [place] [address] Referral ID Status Reason Start Date Expiration Date V isits Requested Visits Authorized [id number] Authorized 11/18/2023 02/16/2024 99 99 Reason Comments Benefits Investigation Specialty Diagnoses / Procedures [facility] Referred To Contact Diagnoses Iron deficiency anemia, unspecified iron deficiency anemia type Elizabet Baker, DO [address] [place] [address] [facility] [address] [place] [address] Reason Comments Refill Request Reason Comments Transition Of Care Reason Comments Results Reason Onset Date Comments Transition Of Care 01/01[facility]2024 [facility]23 Reason Comments Urinary Problem [...] CORONRY CALCIUM Elizabet Baker, DO [address] [place] [address] [place] [address] Referral ID Status Reason Start Date Expiration Date V isits Requested Visits Authorized [id number] Closed Auto-Generate d Referral 02/26/2024 03/27/2025 1 1 Reason Comments Breathing Problem Reason Comments verbal orders Reason Comments Radiology MRI Reason Comments 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 HH Call Reason Comments medication interactions POC Reason Onset Date Comments Transition Of Care 02/13/2025 Reason Onset Date Comments Refill Request 02/23/2025 Reason Comments Positive FIT test Recheck Specialty Diagnoses / Procedures Referred By Yovani t Referred To Contact Gastroenterology Diagnoses Anemia, unspecified type Positive fecal occult blood test Procedures OFFICE/OUTPATIENT [facility] 60 MINUTES Carlos House, DEANNA.ACQUISITION ASSOCIATE [address] [place] [address] Phone: tel: fax: Referral ID Status Reason Start Date Expiration Date V isits Requested Visits Authorized [id number] Closed PCP Requested Referral 02/22/2025 02/22/2026 1 1 Reason Comments Recheck 4 week f/u weakness Care Teams (unrecognized sec tion and content) Aerotriangulation Specialist Relationship Specialty Start Date End Date Victor M Rocha MD [address] [place] [address] PCP - General Family Practice 09/17/10 Victor M Rocha MD [address] [place] [address] Family Practice 09/17/10 Aerotriangulation Specialist Relationship Specialty Start Date End Date Victor M Rocha MD [address] [place] [address] PCP - General Family Practice 09/17/10 Victor M Rocha MD [address] [place] [address] Family Practice 09/17/10 Aerotriangulation Specialist Relationship Specialty Start Date End Date Victor M Rocha MD [address] [place] [address] PCP - General Family Practice 09/17/10 Victor M Rocha MD [address] [facility] [place] [address] Family Practice 09/17/10 Aerotriangulation Specialist Relationship Specialty Start Date End Date Victor M Rocha MD [address] [facility] [place] [address] PCP - General Family Medicine 09/17/10 Victor M Rocha MD [address] [facility] [place] [address] Family Medicine 09/17/10 Team Status: Active Member [...] Dr. Prema Degroot MD Emergency Provider Active Aerotriangulation Specialist Relationship Specialty Start Date End Date Victor M Rocha MD [address] [place] [address] PCP - General Family Medicine 09/17/10 Victor M Rocha MD [address] [place] [address] Family Medicine 09/17/10 Aerotriangulation Specialist Relationship Specialty Start Date End Date Victor M Rocha MD [address] [facility] [place] [address] PCP - General Family Medicine 09/17/10 Victor M Rocha MD [address] [facility] [place] [address] Family Medicine 09/17/10 Aerotriangulation Specialist Relationship Specialty Start Date End Date Victor M Rocha MD [address] [place] [address] PCP - General Family Medicine 09/17/10 Victor M Rocha MD [address] [facility] [place] [address] Family Medicine 09/17/10 Aerotriangulation Specialist Relationship Specialty Start Date End Date Victor M Rocha MD [address] [facility] [place] [address] PCP - General Family Medicine 09/17/10 Victor M Rocha MD [address] [facility] [place] [address] Family Medicine 09/17/10 Aerotriangulation Specialist Relationship Specialty Start Date End Date Victor M Rocha MD [address] [facility] [place] [address] PCP - General Family Medicine 09/17/10 Victor M Rocha MD [address] [place] [address] Family Medicine 09/17/10 Team Status: Inactive Member [...] Dr. Vinny Root MD Attending Provider Active Aerotriangulation Specialist Relationship Specialty Start Date End Date Victor M Rocha MD [address] [facility] [place] [address] PCP - General Family Medicine 09/17/10 Victor M Rocha MD [address] [place] [address] Family Medicine 09/17/10 Aerotriangulation Specialist Relationship Specialty Start Date End Date Victor M Rocha MD [address] [facility] [place] [address] PCP - General Family Medicine 09/17/10 Victor M Rocha MD [address] [facility] [place] [address] Family Medicine 09/17/10 Team Status: Inactive Member Role Status Dates Dr. Victor M Rocha MD Primary Care Provider Active Jignesh Thomas MD Emergency Provider Active Aerotriangulation Specialist Relationship Specialty Start Date End Date Victor M Rocha MD [address] [facility] [place] [address] PCP - General Family Medicine 09/17/10 Victor M Rocha MD [address] [facility] [place] [address] Family Medicine 09/17/10 Aerotriangulation Specialist Relationship Specialty Start Date End Date Victor M Rocha MD [address] [facility] [place] [address] PCP - General Family Medicine 09/17/10 Victor M Rocha MD [address] [facility] [place] [address] Family Medicine 09/17/10 Aerotriangulation Specialist Relationship Specialty Start Date End Date Victor M Rocha MD [address] [facility] [place] [address] PCP - General Family Medicine 09/17/10 Victor M Rocha MD [address] [facility] [place] [address] Family Medicine 09/17/10 Aerotriangulation Specialist Relationship Specialty Start Date End Date Victor M Rocha MD [address] [facility] [place] [address] PCP - General Family Medicine 09/17/10 Victor M Rocha MD [address] [place] [address] Family Medicine 09/17/10 Aerotriangulation Specialist Relationship Specialty Start Date End Date Victor M Rocha MD [address] [place] [address] PCP - General Family Medicine 09/17/10 Victor M Rocha MD [address] [place] [address] Family Medicine 09/17/10 Aerotriangulation Specialist Relationship Specialty Start Date End Date Victor M Rocha MD [address] [place] [address] PCP - General Family Medicine 09/17/10 Victor M Rocha MD [address] [place] [address] Family Medicine 09/17/10 Aerotriangulation Specialist Relationship Specialty Start Date End Date Victor M Rocha MD [address] [place] [address] PCP - General Family Medicine 09/17/10 Victor M Rocha MD [address] [place] [address] Family Medicine 09/17/10 Aerotriangulation Specialist Relationship Specialty Start Date End Date Victor M Rocha MD [address] [facility] [place] [address] PCP - General Family Medicine 09/17/10 Victor M Rocha MD [address] [facility] [place] [address] Family Medicine 09/17/10 Aerotriangulation Specialist Relationship Specialty Start Date End Date Victor M Rocha MD [address] [facility] [place] [address] PCP - General Family Medicine 09/17/10 Victor M Rocha MD [address] [facility] [place] [address] Family Medicine 09/17/10 Aerotriangulation Specialist Relationship Specialty Start Date End Date Victor M Rocha MD [address] [facility] [place] [address] PCP - General Family Medicine 09/17/10 Victor M Rocha MD [address] [facility] [place] [address] Family Medicine 09/17/10 Aerotriangulation Specialist Relationship Specialty Start Date End Date Victor M Rocha MD [address] [facility] [place] [address] PCP - General Family Medicine 09/17/10 Victor M Rocha MD [address] [facility] [place] [address] Family Medicine 09/17/10 Aerotriangulation Specialist Relationship Specialty Start Date End Date Victor M Rocha MD [address] [place] [address] PCP - General Family Medicine 09/17/10 Victor M Rocha MD [address] [place] [address] Family Medicine 09/17/10 Aerotriangulation Specialist Relationship Specialty Start Date End Date Victor M Rocha MD [address] [place] [address] PCP - General Family Medicine 09/17/10 Victor M Rocha MD [address] [place] [address] Family Medicine 09/17/10 Aerotriangulation Specialist Relationship Specialty Start Date End Date Victor M Rocha MD [address] [place] [address] PCP - General Family Medicine 09/17/10 Victor M Rocha MD [address] [place] [address] Family Medicine 09/17/10 Aerotriangulation Specialist Relationship Specialty Start Date End Date Victor M Rocha MD [address] [place] [address] PCP - General Family Medicine 09/17/10 Victor M Rocha MD [address] [place] [address] Family Medicine 09/17/10 Brittny Rivero, NIYA [address] [place] [address] Primary Care Director Pharmacology 12/18/23 Aerotriangulation Specialist Relationship Specialty Start Date End Date Victor M Rocha MD [address] [facility] [place] [address] PCP - General Family Medicine 09/17/10 Victor M Rocha MD [address] [facility] [place] [address] Family Medicine 09/17/10 Brittny Rivero, RN [address] [place] [address] Primary Care Director Pharmacology 12/18/23 Aerotriangulation Specialist Relationship Specialty Start Date End Date Victor M Rocha MD [address] [facility] [place] [address] PCP - General Family Medicine 09/17/10 Victor M Rocha MD [address] [facility] [place] [address] Family Medicine 09/17/10 Brittny Rivero, RN [address] [place] [address] Primary Care Director Pharmacology 12/18/23 Aerotriangulation Specialist Relationship Specialty Start Date End Date Victor M Rocha MD [address] [facility] [place] [address] PCP - General Family Medicine 09/17/10 Victor M Rocha MD [address] [facility] [place] [address] Family Medicine 09/17/10 Brittny Rivero, RN [address] [place] [address] Primary Care Director Pharmacology 12/18/23 Aerotriangulation Specialist Relationship Specialty Start Date End Date Victor M Rocha MD [address] [facility] [place] [address] PCP - General Family Medicine 09/17/10 Victor M Rocha MD [address] [facility] [place] [address] Family Medicine 09/17/10 Brittny Rivero, RN [address] [place] [address] Primary Care Director Pharmacology 12/18/23 Aerotriangulation Specialist Relationship Specialty Start Date End Date Victor M Rocha MD [address] [place] [address] PCP - General Family Medicine 09/17/10 Victor M Rocha MD [address] [place] [address] Family Medicine 09/17/10 Brittny Rivero, NIYA [address] [place] [address] Primary Care Director Pharmacology 12/18/23 Aerotriangulation Specialist Relationship Specialty Start Date End Date Victor M Rocha MD [address] [facility] [place] [address] PCP - General Family Medicine 09/17/10 Victor M Rocha MD [address] [facility] [place] [address] Family Medicine 09/17/10 Aerotriangulation Specialist Relationship Specialty Start Date End Date Victor M Rocha MD [address] [facility] [place] [address] PCP - General Family Medicine 09/17/10 Victor M Rocha MD [address] [facility] [place] [address] Family Medicine 09/17/10 Aerotriangulation Specialist Relationship Specialty Start Date End Date Victor M Rocha MD [address] [place] [address] PCP - General Family Medicine 09/17/10 Victor M Rocha MD [address] [place] [address] Family Medicine 09/17/10 Aerotriangulation Specialist Relationship Specialty Start Date End Date Victor M Rocha MD [address] [place] [address] PCP - General Family Medicine 09/17/10 Victor M Rocha MD [address] [place] [address] Family Medicine 09/17/10 Aerotriangulation Specialist Relationship Specialty Start Date End Date Victor M Rocha MD [address] [place] [address] PCP - General Family Medicine 09/17/10 Victor M Rocha MD [address] [place] [address] Family Medicine 09/17/10 Aerotriangulation Specialist Relationship Specialty Start Date End Date Victor M Rocha MD [address] [place] [address] PCP - General Family Medicine 09/17/10 Victor M Rocha MD [address] [place] [address] Family Medicine 09/17/10 Pratik Luis, NIYA [address] [place] [address] Primary Care Director Pharmacology 03/30/24 Aerotriangulation Specialist Relationship Specialty Start Date End Date Victor M Rocha MD [address] [place] [address] PCP - General Family Medicine 09/17/10 Victor M Rocha MD [address] [place] [address] Family Medicine 09/17/10 Pratik Luis, NIYA [address] [place] [address] Primary Care Director Pharmacology 03/30/24 Aerotriangulation Specialist Relationship Specialty Start Date End Date Victor M Rocha MD [address] [place] [address] PCP - General Family Medicine 09/17/10 Victor M Rocha MD [address] [place] [address] Family Medicine 09/17/10 Pratik Luis, NIYA [address] [place] [address] Primary Care Director Pharmacology 03/30/24 Aerotriangulation Specialist Relationship Specialty Start Date End Date Victor M Rocha MD [address] [place] [address] PCP - General Family Medicine 09/17/10 Victor M Rocha MD [address] [place] [address] Family Medicine 09/17/10 Pratik Luis, NIYA [address] [place] [address] Primary Care Director Pharmacology 03/30/24 Aerotriangulation Specialist Relationship Specialty Start Date End Date Victor M Rocha MD [address] [facility] [place] [address] PCP - General Family Medicine 09/17/10 Victor M Rocha MD [address] [facility] [place] [address] Family Medicine 09/17/10 Pratik Luis, NIYA [address] [place] [address] Primary Care Director Pharmacology 03/30/24 Aerotriangulation Specialist Relationship Specialty Start Date End Date Victor M Rocha MD [address] [place] [address] PCP - General Family Medicine 09/17/10 Victor M Rocha MD [address] [facility] [place] [address] Family Medicine 09/17/10 Pratik Luis, NIYA [address] [place] [address] Primary Care Director Pharmacology 03/30/24 Aerotriangulation Specialist Relationship Specialty Start Date End Date Victor M Rocha MD [address] [facility] [place] [address] PCP - General Family Medicine 09/17/10 Victor M Rocha MD [address] [facility] [place] [address] Family Medicine 09/17/10 Aerotriangulation Specialist Relationship Specialty Start Date End Date Victor M Rocha MD [address] [facility] [place] [address] PCP - General Family Medicine 09/17/10 Victor M Rocha MD [address] [facility] [place] [address] Family Medicine 09/17/10 Yovana Painter APRN.ACQUISITION ASSOCIATE [address] [facility] [place] [address] Gemologist Family Medicine 06/19/24 Carlos House APRN.ACQUISITION ASSOCIATE [address] [facility] [place] [address] Gemologist Family Medicine 06/28/24 Aerotriangulation Specialist Relationship Specialty Start Date End Date iVctor M Rocha MD [address] [facility] [place] [address] PCP - General Family Medicine 09/17/10 Victor M Rocha MD [address] [facility] [place] [address] Family Medicine 09/17/10 Yovana Painter APRN.ACQUISITION ASSOCIATE [address] [place] [address] Gemologist Family Medicine 06/19/24 Carlos House APRN.ACQUISITION ASSOCIATE [address] [facility] [place] [address] Gemologist Family Medicine 06/28/24 Prema Sampson, porcelain turnerTrashman 09/05/24 Aerotriangulation Specialist Relationship Specialty Start Date End Date Victor M Rocha MD [address] [facility] [place] [address] PCP - General Family Medicine 09/17/10 Victor M Rocha MD [address] [place] [address] Family Medicine 09/17/10 Yovana Painter, POWERHOUSE OILER.ACQUISITION ASSOCIATE [address] [place] [address] Gemologist Family Medicine 06/19/24 Carlos House POWERHOUSE OILER.ACQUISITION ASSOCIATE [address] [place] [address] Gemologist Family Medicine 06/28/24 Prema Sampson, porcelain turnerTrashman 09/05/24 Aerotriangulation Specialist Relationship Specialty Start Date End Date Victor M Rocha MD [address] [place] [address] PCP - General Family Medicine 09/17/10 Victor M Rocha MD [address] [facility] [place] [address] Family Medicine 09/17/10 Yovana Painter, POWERHOUSE OILER.ACQUISITION ASSOCIATE [address] [place] [address] Gemologist Family Medicine 06/19/24 Carlos House, POWERHOUSE OILER.ACQUISITION ASSOCIATE [address] [place] [address] Gemologist Family Medicine 06/28/24 Prema Sampson, porcelain turnerTrashman 09/05/24 Aerotriangulation Specialist Relationship Specialty Start Date End Date Victor M Rocha MD [address] [place] [address] PCP - General Family Medicine 09/17/10 Victor M Rocha MD [address] [place] [address] Family Medicine 09/17/10 Yovana Painter APRN.ACQUISITION ASSOCIATE [address] [place] [address] Gemologist Family Medicine 06/19/24 Carlos House APRN.ACQUISITION ASSOCIATE [address] [place] [address] Gemologist Family Medicine 06/28/24 Prema Sampson, porcelain turnerTrashman 09/05/24 Aerotriangulation Specialist Relationship Specialty Start Date End Date Victor M Rocha MD [address] [place] [address] PCP - General Family Medicine 09/17/10 Victor M Rocha MD [address] [place] [address] Family Medicine 09/17/10 Carlos House, POWERHOUSE OILER.ACQUISITION ASSOCIATE [address] [place] [address] Gemologist Family Medicine 06/28/24 Prema Sampson RN Trashman 09/05/24 Aerotriangulation Specialist Relationship Specialty Start Date End Date Victro M Rocha MD [address] [place] [address] PCP - General Family Medicine 09/17/10 Victor M Rocha MD [address] [place] [address] Family Medicine 09/17/10 Carlos House APRN.ACQUISITION ASSOCIATE [address] [place] [address] Gemologist Family Medicine 06/28/24 Prema Sampson, porcelain turnerTrashman 09/05/24 Aerotriangulation Specialist Relationship Specialty Start Date End Date VictorM Rocha MD [address] [facility], [place] [address] PCP - General Family Medicine 09/17/10 Victor M Rocha MD [address] [place], [place] [address] Family Medicine 09/17/10 Carlos House APRN.ACQUISITION ASSOCIATE [address] [place] [address] Gemologist Family Medicine 06/28/24 Prema Sampson RN Trashman 09/05/24 Team Status: Active Member Role/Relationship Status Dates Dr. Victor M Rocha MD Family Provider Active Dr. Victor M Rocha MD Primary Care Provider Active Team Status: Inactive Member Role/Relationship Status Dates Dr. Victor M Rocha MD Primary Care Provider Active Start: October 10, 2024 End: October 10, 2024 Dr. Vniny Root MD Attending Provider Active S tart: [...] January 09, 2025 End: January 09, 2025 Aerotriangulation Specialist Relationship Specialty Start Date End Date Victor M Rocha MD [address] [facility] [place] [address] PCP - General Family Medicine 09/17/10 Victor M Rocha MD [address] [facility] [place] [address] Family Medicine 09/17/10 Carlos House APRN.ACQUISITION ASSOCIATE [address] [facility] [place] [address] Gemologist Family Medicine 06/28/24 Prema Sampson, porcelain turnerTrashman 09/05/2402/02 Aerotriangulation Specialist Relationship Specialty Start Date End Date Victor M Rocha MD [address] [place] [address] PCP - General Family Medicine 09/17/10 Victor M Rocha MD [address] [facility] [place] [address] Family Medicine 09/17/10 Carlos House APRN.ACQUISITION ASSOCIATE [address] [facility] [place] [address] Gemologist Family [facility] 06/28/24 Aerotriangulation Specialist Relationship Specialty Start Date End Date Victor M Rocha MD [address] [facility] [place] [address] PCP - General Family Medicine 09/17/10 Victor M Rocha MD [address] [facility] [place] [address] Family Medicine 09/17/10 Carlos House APRN.ACQUISITION ASSOCIATE [address] [facility] [place] [address] [facility] [place] 06/28/24 Aerotriangulation Specialist Relationship Specialty Start Date End Date Victor M Rocha MD [address] [place], [place] [address] PCP - General Family Medicine 09/17/10 Victor M Rocha MD [address] [place], [place] [address] Family Medicine 09/17/10 Carlos House APRN.ACQUISITION ASSOCIATE [address] [place], [place] [address] [facility] 06/28/24 Team Status: Active Member Role/Relationship Status [...] Attending Provider Active Start: February 08, 2025 Aerotriangulation Specialist Relationship Specialty Start Date End Date Victor M Rocha MD [address] [facility], [place] [address] PCP - General Family Medicine 09/17/10 Victor M Rocha MD [address] [facility], [place] [address] Family Medicine 09/17/10 Carlos House, DEANNA.ACQUISITION ASSOCIATE [address] [place], [place] [id number] Gemologist Family Medicine 06/28/24 Team Status: Inactive Member [...] Attending Provider Active Start: February 10, 2025 Aerotriangulation Specialist Relationship Specialty Start Date End Date Victor M Rocha MD [address] [place] [address] PCP - General Family Medicine 09/17/10 Victor M Rocha MD [address] [place] [address] Family Medicine 09/17/10 Carlos House APRN.ACQUISITION ASSOCIATE [address] [place] [address] Gemologist Family Medicine 06/28/24 Aerotriangulation Specialist Relationship Specialty Start Date End Date Victor M Rocha MD [address] [place] [address] PCP - General Family Medicine 09/17/10 Victor M Rocha MD [address] [place], [place] [id number] Family Medicine 09/17/10 Carlos House, POWERHOUSE OILER.ACQUISITION ASSOCIATE [address] [place], [place] [id number] Gemologist Family Medicine 06/28/24 Team Status: Active Member [...] 2025 End: February 21, 2025 Phyllis Tovar COMPRESSOR REPAIRER, COMPRESSOR REPAIRER-C Attending Provider Active Start: February 21, 2025 End: February 21, 2025 Aerotriangulation Specialist Relationship Specialty Start Date End Date Victor M Rocha MD [address] [place], [place] [id number] PCP - General Family Medicine 09/17/10 Victor M Rocha MD [address] [place], [place] [id number] Family Medicine 09/17/10 Carlos House, DEANNA.ACQUISITION ASSOCIATE [address] [place], [place] [id number] Gemologist [facility] 06/28/24 Aerotriangulation Specialist Relationship Specialty Start Date End Date Victor M Rocha MD [address] [place], [place] [address] PCP - General Family Medicine 09/17/10 Victor M Rocha MD [address] [place], [place] [id number] Family Medicine 09/17/10 Carlos House APRN.ACQUISITION ASSOCIATE [address] [place], [place] [id number] Gemologist [facility] 06/28/24 Team Status: Inactive Member Role/Relationship [...] Status: Active Member Role/Relationship Status Dates Dr. VictorM Rocha MD Primary Care Provider Active Start: February 10, 2025 Dr. Bernardo Judd DO Emergency Provider Active Start: February 10, 2025 Dr. Deandre Xiao DO Admit Provider Active Start: February 10, 2025 Dr. Deandre Xioa DO Other Provider Active Start: February 10, [...] 2025 End: February 21, 2025 Phyllis Tovar COMPRESSOR REPAIRER, COMPRESSOR REPAIRER-C Attending Provider Active Start: February 21, 2025 [...] 2025 End: February 21, 2025 Phyllis Tovar COMPRESSOR REPAIRER, COMPRESSOR REPAIRER-C Attending physician Active Start: February 21, 2025 [...] BE BASED ON THE PRIMARY CLINICAL RECORDS. [facility] [employer] [facility]. provides no warranty or guarantee of the accuracy or completeness of information in this document.
[2025-04-29 12:54] LABS: Magnesium 2.2 mg/dL (1.5-2.2)
--- NOTE | 2025-04-29 14:01 | CONS.ORTHO ---
HPI Consult Data Date of Consult: 04/29/25 HPI Narrative Reason for Consultation: Right hip fracture HPI Narrative: ANTONIO GUPTA, is a 84 F who presents to [facility] emergency department this morning after a mechanical fall from standing height at her detention facility. She is currently rehabbing her left hip hemiarthroplasty performed approximately 1 month ago by our partner Dr. Adonis Rodriguez on 04/04/2025. She reports she is doing well with her left hip. She states she has been doing reasonably well walking unassisted with a walker. She lost her balance near the bathroom trying to go to the bathroom independently today and fell on her right side. She does report head injury but denies any pain or change in vision or hearing. She is anticoagulated on Xarelto for chronic A-fib. Presumed last dose was last evening. Denies any other new pain. X-rays revealed a displaced femoral neck fracture. She was admitted under the service of the hospitalist. I was called for consultation. At time my examination, patient appeared comfortable and denied any other new symptoms including numbness or tingling, fevers, chills, nausea or vomiting, chest pain or shortness of breath. She denies any anesthetic complications in the past. [facility] Medical History Heart failure Overweight (BMI 25.0-29.9) Coronary artery disease Iron deficiency anemia History of non-ST elevation myocardial infarction (NSTEMI) (2013) Longstanding persistent atrial fibrillation Essential (primary) hypertension Anxiety Hypothyroidism Hyperlipidemia Secondary pulmonary arterial hypertension Atherosclerosis of coronary artery of [place] heart without angina pectoris Paroxysmal atrial fibrillation Paroxysmal atrial flutter Sick sinus syndrome Home Medications ?Medication ?Instructions ?Recorded ?Last Taken ?Type buspirone 15 mg tablet 15 mg PO TID ANXIETY 06/02/13 04/04/25 History omeprazole 40 mg capsule,delayed 40 mg PO DAILY ACID REFLUX 06/02/13 04/02/25 History release nitroglycerin 0.4 mg sublingual 0.4 mg sublingual Q5M PRN CHEST 04/21/15 Unknown History tablet PAIN amitriptyline 50 mg tablet 50 mg PO QHS DEPRESSION 02/17/23 04/02/25 History levothyroxine 100 mcg tablet 100 mcg PO DAILY THYROID 12/14/23 04/04/25 History (Synthroid) rivaroxaban 20 mg tablet (Xarelto) 20 mg PO QPM #90 tabs 10/06/24 04/02/25 Rx losartan 100 mg tablet 100 mg PO DAILY blood pressure #90 11/18/24 04/03/25 Rx tabs potassium chloride 20 mEq 40 meq (2 x 20 mEq) PO QDAY #90 11/21/24 04/02/25 Rx tablet,extended release(part/cryst) tabs metoprolol succinate 50 mg 50 mg PO DAILY heart/BP #90 tabs 11/23/24 04/04/25 Rx tablet,extended release 24 hr amlodipine 10 mg tablet 10 mg PO DAILY 02/08/25 04/02/25 History ferrous sulfate 325 mg (65 mg 65 mg PO DAILY 02/08/25 04/03/25 History iron) tablet (FeroSul) ascorbic acid (vitamin C) 500 mg 500 mg PO BID 04/03/25 04/03/25 History tablet (Vitamin C) acetaminophen 500 mg tablet 1,000 mg (2 x 500 mg) PO Q8 PRN 04/06/25 Unknown Rx pain #0 tabs oxycodone 5 mg tablet 5 mg PO TID 3 days #9 tabs 04/06/25 Unknown Rx atorvastatin 10 mg tablet (Lipitor) 10 mg PO QHS 04/29/25 Unknown History dapagliflozin propanediol 10 mg 10 mg PO DAILY 04/29/25 Unknown History tablet furosemide 40 mg tablet (Lasix) 40 mg PO Q12H water pill 04/29/25 Unknown History melatonin 5 mg tablet 5 mg PO QHS 04/29/25 Unknown History Allergy/AdvReac Type Severity Reaction Status Date / Time poison fany extract (Poison Allergy Rash Verified 04/29/25 10:19 Fany Extract) Sulfa (Sulfonamide Allergy Hives Verified 04/29/25 10:19 Antibiotics) Family History Mother Cancer Father Cancer Brother CAD (coronary artery disease) Sister CAD (coronary artery disease) Surgical History S/P kyphoplasty History of tubal ligation History of appendectomy History of hysterectomy History of left heart catheterization (10/09/13) History of coronary artery stent placement (09/2010) Hx of atrioventricular node ablation (03/31/16) Presence of cardiac pacemaker (04/26/15) Social History household members: spouse Smoking Status: Former smoker how long ago did patient quit smokin's alcohol intake: never substance use type: does not use caffeine: Yes Type: coffee Number of servings: 3 ROS ROS Narrative 12 point review of systems obtained, negative unless otherwise noted in HPI. Vital Signs Vital Signs Vital Signs: 04/29/25 10:14 04/29/25 10:19 04/29/25 10:19 Temperature 97.8 F Temperature Source Oral Pulse Rate 80 Respiratory Rate 18 26 H Respiratory Effort Normal Non-Labored Respiratory Depth Normal Respiratory Pattern Normal Blood Pressure 154/70 H Blood Pressure Mean 98 Pulse Ox 04/29/25 11:13 04/29/25 12:00 04/29/25 12:18 Temperature 97.8 F Temperature Source Pulse Rate 80 80 80 Respiratory Rate 18 28 H 28 H Respiratory Effort Respiratory Depth Respiratory Pattern Blood Pressure 150/70 H 135/67 H 135/67 H Blood Pressure Mean 96 89 89 Pulse Ox 96 91 91 Weight Weight: 175 lb 11.335 oz Body Mass Index (BMI) 26.6 Physical Exam Narrative General -A&Ox3, NAD, appears stated age. Vital signs stable, afebrile. Respiratory -normal work of breathing, no intercostal retractions. CV -pulses regular, brisk capillary refill ?4 limbs. Abdomen-soft, nontender, nondistended. No guarding, rigidity, rebound tenderness. Musculoskeletal/neurologic -full range of motion nontender throughout bilateral upper extremities, left lower extremity with full sensation and strength in all dermatomes and myotomes. No midline cervical tenderness. Left hip posterior lateral skin incision is healing well without erythema or drainage. Right lower extremity-shortened and externally rotated. Pain with logroll of the right lower extremity. Nontender throughout the right knee femoral shaft, tibial shaft and left foot/ankle. Brisk capillary refill. Sensation intact light touch L3-S1 dermatomes. DF, PF, EHL intact. DP, PT 2+. Pelvis is stable, nontender. Skin is intact without lacerations, abrasions. No ecchymosis noted. Lab / Micro Data 04/29/25 10:04/29/25 10:25 Labs: Laboratory Results - last 24 hr 04/29/25 10:25: WBC 14.2 H, RBC 4.28, Hgb 13.1, Hct 40.5, MCV 94.6, MCH 30.6, MCHC 32.3, RDW Std Deviation 55.3 H, RDW Coeff of Jose Alberto 16.4 H, Plt Count 342, MPV 10.9, Immature Gran % (Auto) 1.100 H, Neut % (Auto) 84.8 H, Lymph % (Auto) 5.9 L, [place] % (Auto) 7.7, Eos % (Auto) 0.2, Baso % (Auto) 0.3, Absolute Neuts (auto) 12.0 H, Absolute Lymphs (auto) 0.83, Nucleated RBC % 0, Sodium 135, Potassium 3.5, Chloride 96 L, Carbon Dioxide 25.1, Anion Gap 14, BUN 20 H, Creatinine 1.18, Estim Creat Clear Calc 39.28 L, Est GFR (MDRD) Non-Af 45 L, BUN/Creatinine Ratio 17.0, Glucose 186 H, Calcium 9.9, Magnesium 2.2 Rhythm Strip Rhythm Strip: paced Rate: 80 Ectopy: None Imaging Radiology Impression Brain CT 04/29/25 10:35 IMPRESSION: No acute intracranial abnormalities. Reading Location: [facility] Chest X-Ray 04/29/25 11:00 IMPRESSION: No Acute Findings. Reading Location: [facility] Hip/Pelvis X-Ray 04/29/25 11:00 IMPRESSION: Acute subcapital right femoral neck fracture. Reading Location: [facility] Assessment & Plan Assessment/Plan (1) Displaced fracture of neck of right femur: PLAN: Patient sustained a right displaced femoral neck fracture -Closed, neurovascularly intact -Recommending surgical intervention in the form of right hip hemiarthroplasty -I discussed the procedure-its risks, benefits and alternative. Risks include but are not limited to bleeding, infection, loss of life or limb, risk of anesthesia, persistent pain or disability, need for additional surgery, instability, leg length discrepancy, failure of orthopedic hardware, neurovascular injury, DVT or PE. Patient expressed understanding these risks and wished proceed with surgery. -Maintenance IV fluids, clear liquid diet after midnight n.p.o. at 2 hours prior to surgery -Type and screen -2 g Ancef on-call to the OR -Bedrest, heel protectors - Plan to proceed with surgery 05/01/2025 to allow washout of Frankierelto Thank you for this consultation.
[2025-04-29] MEDS: Lactated Ringers 1,000 ML 75 ML IV (14:48)
[2025-04-29] MEDS: Insulin Glargine-YFGN 100 UNIT/ML Pen 10 UNIT SC (17:54)
[2025-04-29] MEDS: Metoprolol(XL)Succ 50 MG Tablet PO (17:56)
[2025-04-29] MEDS: 0.9% Saline Lock 10 ML Syringe IV (18:31)
[2025-04-29] MEDS: MELATONIN 10 MG TABLET 5 MG PO (22:48)
[2025-04-29] MEDS: Senna/Docusate Sodium 1 Tablet 2 TABLET PO (22:51)
[2025-04-30] VITALS (9 sets, daily range): BP systolic 105–118; BP diastolic 55–73; PULSE 79–81; RESP 16–18; TEMP 36.2–36.6; O2SAT 87–98; BMI 26.8
[2025-04-30 04:40] LABS: Hematocrit 37.7 % (37-47); Hemoglobin 11.8 g/dL (12.0-15.0); Immature Granulocytes Count 0.060 X10^3/uL (0.0-0.0); Mean Corp Hgb Conc 31.3 g/dL (32-36); Mean Corpuscular Volume 95.0 fL (81-99); Mean Platelet Vol. 10.2 fl (6.2-12.0); NRBC Flagged by Analyzer 0 % (0-5); Platelet Count 339 K/mm3 (150-450); RBC Distribution Width CV 16.3 % (11.6-14.6); RBC Distribution Width SD 55.6 fl (35.1-43.9); Red Blood Count 3.97 M/mm3 (4.2-5.4); White Blood Count 9.1 K/mm3 (4.4-11.0)
[2025-04-30 05:09] LABS: Anion Gap 12 (5-15); BUN 26 mg/dL (4-19); BUN/Creat Ratio 17.2 RATIO (10-20); Calcium,Total 9.6 mg/dL (7.6-11.0); Carbon Dioxide 22.1 mmol/L (21.0-32.0); Chloride 99 mmol/L (98-108); Estimated Creatinine Clearance 30.00 ml/min (50-250); Glucose 151 mg/dL (70-99); Potassium 4.8 mmol/L (3.3-5.1)
[2025-04-30] MEDS: Potassium Chloride Oral Tablet 20 MEQ 40 MEQ PO (08:08)
[2025-04-30] MEDS: Polyethylene Glycol 3350 17 GM PACKET PO (09:30)
[2025-04-30] MEDS: Metoprolol(XL)Succ 50 MG Tablet PO (09:31)
[2025-04-30] MEDS: Senna/Docusate Sodium 1 Tablet 2 TABLET PO ×2 (09:36→21:48)
--- NOTE | 2025-04-30 11:37 | PN.HOSP_ITS ---
Reason for Visit Chief Complaint: Fall and hit her head and right lower extremity. No LOC Objective Data Objective Data Vital Signs: Vital Signs Temp Pulse Resp BP Pulse Ox O2 Del Method O2 Flow Rate 97.2 F L 80 16 108/55 L 96 Nasal Cannula 2 04/30/25 07:55 04/30/25 09:31 04/30/25 07:55 04/30/25 07:55 04/30/25 08:26 04/30/25 08:26 04/30/25 08:26 Oxygen Flow Rate (L/min) 2 Oxygen Delivery Method Nasal Cannula Weight: 176 lb 12.972 oz Body Mass Index (BMI) 26.8 Intake & Output: Intake and Output for Last 24 Hours 04/28/25 04/29/25 04/30/25 23:59 23:59 23:59 Intake Total 1000 / 1000 Balance 1000 / 1000 Lab / Micro Data 04/30/25 04:00 04/30/25 04:00 Labs: Laboratory Results - last 24 hr 04/29/25 10:25: Magnesium 2.2 04/29/25 16:23: POC Glucose 204 H 04/29/25 22:57: POC Glucose 157 H 04/30/25 04:00: WBC 9.1, RBC 3.97 L, Hgb 11.8 L, Hct 37.7, MCV 95.0, MCH 29.7, M CHC 31.3 L, RDW Std Deviation 55.6 H, RDW Coeff of Jose Alberto 16.3 H, Plt Count 339, MPV 10.2, Immature Gran % (Auto) 0.700, Neut % (Auto) 71.6 H, Lymph % (Auto) 14.3 L, [place] % (Auto) 8.9, Eos % (Auto) 4.1, Baso % (Auto) 0.4, Absolute Neuts (auto) 6.5, Absolute Lymphs (auto) 1.30, Nucleated RBC % 0, Sodium 133, Potassium 4.8, Chloride 99, Carbon Dioxide 22.1, Anion Gap 12, BUN 26 H, C reatinine 1.52 H, Estim Creat Clear Calc 30.00 L, Est GFR (MDRD) Non-Af 33 L, BUN/Creatinine Ratio 17.2, Glucose 151 H, Hemoglobin A1c 6.2 H, Calcium 9.6 04/30/25 06:44: POC Glucose 118 H Radiography Diagnostic Testing: Radiology Impression Chest X-Ray 04/29/25 11:00 IMPRESSION: No Acute Findings. Reading Location: [facility] Hip/Pelvis X-Ray 04/29/25 11:00 IMPRESSION: Acute subcapital right femoral neck fracture. Reading Location: [facility] Rhythm Strip Rhythm Strip: paced Rate: 80 Ectopy: None Physical Exam Narrative Seen and examined. Right hip pain is well-controlled. Patient was sleeping but she woke up. Physical exam General: Alert, Oriented x3, Cooperative HEENT:Mild reactive swelling/edema over parietal region but no hematoma. PERRLA, EOMI, Normocephalic. Oral: Oral mucosa moist. No Gingival or Mucosal Lesions/ Ulcerations Neck: Supple, No JVD, Negative Carotid Bruits Chest wall/Lungs: Air entry diminished in bilateral lung bases. No crepitation/rhonchi Cardiovascular: Paced rhythm. Systolic murmur Abdomen: Bowel Sounds Present, Soft, Non Tender, Non-Distended : No dysuria. No renal angle tenderness. No suprapubic tenderness. Extremities: No edema, Capillary Refill Less than 3 Seconds Skin: No rash. No ulcer. Left hip surgical incision well-healed. Musculoskeletal: Mild tenderness over the greater trochanter region of the right hip. RLE Short, externally rotated and flexed. Neurological: Cranial nerves II-XII grossly intact, DTR 2+/4. No acute focal neurological deficit. Psych/Mental Status: Normal Affect, Appropriate. Assessment & Plan Assessment/Plan (1) Closed right hip fracture: PLAN: Plan This 84 old female is being admitted for left hip subcapital fracture after fall and mild head injury but no laceration or LOC 1. Acute debility due to acute/subacute right right femoral neck fracture with recent history of left femoral neck fracture status post left hip cemented arthroplasty: Patient is being admitted to [facility] floor. X-ray shows acute fracture in subcapital region of right femoral neck with coxa vera morphology. Left hip arthroplasty hardware remains intact. No dislocation. Orthopedic surgeon Dr. Grier consulted from ED physician. Pain control, muscle relaxant. PT and OT ordered. Hold Xarelto. Bowel and bladder care. Twelve-lead EKG reviewed and shows V paced rhythm at 80 bpm. QTc 548 ms, prolonged because of pacemaker. Patient is moderately high risk for surgery because of history of multiple cardiac conditions including chronic HFpEF, persistent A-fib and severe pulmonary hypertension. Patient is DNR CC arrest. With no intubation. 04/30: Patient is DNR CC arrest with no intubation. ACS surgical risk is elevated with serious or any complication above average. UTI renal hemorrhage with discharged to intermediate evaluate average. Risk of not having surgery is very high with bedsore, immobilization, risk of DVT/PE and . This was discussed with the patient's at the bedside. 2. Fall and mild head injury but no LOC or laceration: Mild leukocytosis probably due to fall, right hip fracture inflammatory reaction. No sign or symptoms of infection 3. Chronic HFpEF, compensated persistent A-fib/flutter/sick sinus syndrome with pacemaker, moderately severe TR, severe pulmonary hypertension: She had last dose of Xarelto yesterday evening on 04/28. She will need 2 days of Xarelto prior to surgery therefore surgery posted for Thursday.Echo in February 08, 2025: LVEF 65%, size and systolic function normal. Severe pulmonary hypertension, PASP 76 mmHg with 3+ TR. 1+ eccentric AI. 1+ PI. LA severely enlarged. 3. Type 2 diabetes mellitus: Glucose 186. Last A1c 6.7% on February 08. Accu-Chek before meals and at bedtime with Humalog sliding scale coverage and hypoglycemia protocol. Hold oral hypoglycemic agents 04/30: A1c 6.2%. Glucose 151. N.p.o. past midnight. D5 half NS during n.p.o. status ordered. 4. Hypothyroidism: Continue Synthroid. TSH 3.08 on February 08 5. Hypertension: BP 150/70, acceptable range as per her age. Continue antihypertensive medications 6. CAD status post previous stent: 7. Dyslipidemia on a statin continued 8. GERD, anxiety and depression: Home medication conciliation done. DVT prophylaxis was on Xarelto at home, hold it. Bilateral SCDs Living will/advanced directive/end of life care: Patient does have living will or advanced directive. Patient's is her POA. Patient daughter present in the room. After discussion of benefits/risks procedures involved with full code, DNR CC arrest and DNR CC, the patient opted for DNR CC arrest with no intubation. I informed the patient and the daughter that DNRCC status will be held during surgery and first 24 hours postop period. Patient doesn't want artificial life support including intubation, tube feed, ventilator and/chest compression, central venous catheter, vasopressor and DC shock if needed Laboratory Results 04/29/25 10:25: Magnesium 2.2 04/29/25 16:23: POC Glucose 204 H 04/29/25 22:57: POC Glucose 157 H 04/30/25 04:00: WBC 9.1, RBC 3.97 L, Hgb 11.8 L, Hct 37.7, MCV 95.0, MCH 29.7, M CHC 31.3 L, RDW Std Deviation 55.6 H, RDW Coeff of Jose Alberto 16.3 H, Plt Count 339, MPV 10.2, Immature Gran % (Auto) 0.700, Neut % (Auto) 71.6 H, Lymph % (Auto) 14.3 L, [place] % (Auto) 8.9, Eos % (Auto) 4.1, Baso % (Auto) 0.4, Absolute Neuts (auto) 6.5, Absolute Lymphs (auto) 1.30, Nucleated RBC % 0, Sodium 133, Potassium 4.8, Chloride 99, Carbon Dioxide 22.1, Anion Gap 12, BUN 26 H, C reatinine 1.52 H, Estim Creat Clear Calc 30.00 L, Est GFR (MDRD) Non-Af 33 L, BUN/Creatinine Ratio 17.2, Glucose 151 H, Hemoglobin A1c 6.2 H, Calcium 9.6 04/30/25 06:44: POC Glucose 118 H Clinical Impression(s) from Imaging Studies Brain CT 04/29/25 10:35 IMPRESSION: No acute intracranial abnormalities. Reading Location: [facility] Chest X-Ray 04/29/25 11:00 IMPRESSION: No Acute Findings. Hip/Pelvis X-Ray 04/29/25 11:00 IMPRESSION: Acute subcapital right femoral neck fracture. Charges/Coding Visit Charges Inpatient E&M: 57351 Subs Hosp L2
[2025-04-30] MEDS: Insulin Glargine-YFGN 100 UNIT/ML Pen 10 UNIT SC (16:32)
[2025-04-30] MEDS: 0.9% Saline Lock 10 ML Syringe IV (21:47)
[2025-04-30] MEDS: MELATONIN 10 MG TABLET 5 MG PO (21:47)
[2025-05-01] VITALS (21 sets, daily range): BP systolic 104–130; BP diastolic 38–73; PULSE 79–81; RESP 15–18; TEMP 36.3–37.1; O2SAT 90–98; BMI 26.6
[2025-05-01] MEDS: Dext 5%-0.45% NS 1,000 ML 50 ML IV (00:14)
[2025-05-01] MEDS: 0.9% Saline Lock 10 ML Syringe IV ×2 (02:40→08:35)
[2025-05-01 05:16] LABS: Hematocrit 36.9 % (37-47); Hemoglobin 11.6 g/dL (12.0-15.0); Immature Granulocytes Count 0.030 X10^3/uL (0.0-0.0); Mean Corp Hgb Conc 31.4 g/dL (32-36); Mean Corpuscular Volume 95.8 fL (81-99); Mean Platelet Vol. 9.5 fl (6.2-12.0); NRBC Flagged by Analyzer 0 % (0-5); Platelet Count 259 K/mm3 (150-450); RBC Distribution Width CV 16.0 % (11.6-14.6); RBC Distribution Width SD 54.1 fl (35.1-43.9); Red Blood Count 3.85 M/mm3 (4.2-5.4); White Blood Count 7.1 K/mm3 (4.4-11.0)
[2025-05-01 05:25] LABS: Prothrombin Time (Protime)PT. 17.6 SECONDS (11.7-14.9)
[2025-05-01 05:26] LABS: Partial Thromboplast Time 37.0 Seconds (24.1-36.2)
[2025-05-01 05:58] LABS: Anion Gap 10 (5-15); BUN 26 mg/dL (4-19); BUN/Creat Ratio 18.2 RATIO (10-20); Calcium,Total 8.7 mg/dL (7.6-11.0); Carbon Dioxide 25.0 mmol/L (21.0-32.0); Chloride 99 mmol/L (98-108); Estimated Creatinine Clearance 31.44 ml/min (50-250); Glucose 137 mg/dL (70-99); Potassium 4.3 mmol/L (3.3-5.1)
[2025-05-01] MEDS: Metoprolol(XL)Succ 50 MG Tablet PO (08:30)
--- NOTE | 2025-05-01 08:35 | NURSING ---
notified pacer nurse that pt is going to surgery at 0845 this am.
--- NOTE | 2025-05-01 09:07 | NURSING ---
off unit via bed for surgery
--- NOTE | 2025-05-01 09:08 | PRE.ANES_ITS ---
ASA Classification* ASA Classification ASA Classification: 3 Assessment & Plan Anesthesia* Anesthesia Assessment Anesthesia Assessment: Discussed sedation and/or anesthesia options, risks, benefits, and alternatives with patient/parents/legal guardian/POA. Questions invited. The patient/parents/legal guardian/POA seems to understand and agrees to proceed with anesthesia plan. Reviewed the physical assessment, medical history, allergy history and patient home medications list prior to surgery/procedure/anesthetic and documented any changes. Performed airway and anesthesia risk assessments. Anesthesia Type Anesthesia Type: General Anesthesia Focused Assessment* Temperature: 97.5 F Pulse Rate: 81 Blood Pressure: 128/73 Respiratory Rate: 16 Pulse Ox: 96 Oxygen Flow Rate (L/min): 2 Airway Assessment Mouth opens: >3 cm Mallampati Score: II Labs Anesthesia Preop lab: CBC WBC, (4.4-11.0) 7.1 K/mm3 Today, 05:04 RBC, (4.2-5.4) 3.85 M/mm3 L Today, 05:04 Hgb, (12.0-15.0) 11.6 g/dL L Today, 05:04 Hct, (37-47) 36.9 % L Today, 05:04 Plt Count, (150-450) 259 K/mm3 Today, 05:04 CHEMISTRY Potassium, (3.3-5.1) 4.3 mmol/L Today, 05:04 Sodium, (133-145) 134 mmol/L Today, 05:04 Magnesium, (1.5-2.2) 2.2 mg/dL 04/29/25, 10:25 Phosphorus, (2.7-4.5) 3.4 mg/dL 02/10/25, 06:24 BUN, (4-19) 26 mg/dL H Today, 05:04 Creatinine, (0.70-1.20) 1.45 mg/dL H Today, 05:04 Glucose, (70-99) 137 mg/dL H Today, 05:04 POC Glucose, (74-106) 137 mg/dL H Today, 06:12 TSH, (0.300-4.200) 0.248 uIU/mL L Today, 05:04 COAG PT, (11.7-14.9) 17.6 SECONDS H Today, 05:04 Pre-Assessment Diagnosis/Proposed Procedure Planned Operative Procedure(s): Hemiarthroplasty hip fracture. Anesthesia History Anesthesia History - ironer machine: Anesthesia History - ironer machine Hx Hospitalization Yes 05/01/20 15:28 Any Problems With Anesthesia No 05/01/25 02:34 Cholinesterase deficiency No 05/01/25 02:34 You/Your Family Experience No 05/01/25 02:34 fever (hyperthermia) with Relationship Recent Exposure to Contagious No 05/01/25 02:34 Disease Does patient have nerve No 05/01/25 02:34 stimulator Patient instructed to have No 05/01/25 02:34 device shut off --Does patient have Pacemaker Yes 05/01/25 08:00 or ICD? When Was Last Pacemaker Check July 2024 05/01/25 02:34 QUESTION #4 FULL TEXT: You/Your Family Experience fever (hyperthermia) with Anesthesia Last Oral Intake Last Oral intake: Last Oral Intake NPO since 00:01 05/01/25 08:00 Meds taken in AM with sips of Yes 05/01/25 08:00 water? Meds patient instructed to metoprolol 50mg-82405/01/25 08:00 take am of surgery PONV PONV - ironer machine: PONV - ironer machine Female HX of Motion Sickness HX of N/V After Surgery Non-Smoker Duration of Surgery greater than 60 minutes Number of Risk Factors PONV Score Height & Weight Height & Weight: Anesthesia: Height & Weight Height 5 ft 8 in 05/01/25 08:00 Weight: 79.7 kg 05/01/25 08:00 Body Mass Index (BMI) 26.6 05/01/25 08:00 Respiratory Assessment Respiratory Assessment - ironer machine: Respiratory Tract Infection Hx - ironer machine Hx Respiratory Tract Infection No 05/01/25 02:34 STOP Sleep Apnea STOP Sleep Apnea - ironer machine: STOP Sleep Apnea - ironer machine Hx Hypertension Yes 04/30/25 07:53 Hx Sleep Apnea No 04/29/25 13:32 CPAP No 04/29/25 13:32 BIPAP No 04/29/25 13:32 Do you snore loudly (louder No 04/29/25 13:32 than talking or can be heard Do you often feel tired/ No 04/29/25 13:32 fatigued/ sleepy during daytime? Has anyone observed you stop No 04/29/25 13:32 breathing during sleep? STOP Results Negative 04/29/25 13:32 QUESTION #5 FULL TEXT : Do you snore loudly (louder than talking or can be heard through closed doors)? Tobacco Use History Tobacco Use History - ironer machine: Tobacco Use History - ironer machine Tobacco Use Non-smoker 12/19/20 19:00 Smoking Status Former smoker 04/29/25 13:32 Hx Tobacco Use No 04/29/25 13:32 Years Smoking Packs Smoked per Day Smoking Cessation Date was No - quit smoking greater 04/29/25 13:32 within the last 15 years than 15 years ago Hx Smoking Cessation Date 07/13/83 04/29/25 13:32 Hx Smoking Cessation No 04/29/25 13:32 Counseling Hematologic Medial History Hematologic Hx - ironer machine: Hematologic Medical Hx - [facility] justice Hx of Blood Transfusion No 04/29/25 13:32 Hx of Transfusion in last 3 No 04/29/25 13:32 Months Date of Last Transfusion (if within last 3 months) Ever experience any problems No 04/29/25 13:32 with transfusion(s)? Specify any problems Hx of Preganancy in last 3 N/A 04/29/25 13:32 Months Nurse Filling Out Transfusion JDIAL 04/29/25 13:32 & Questions: Date: 04/29/25 04/29/25 13:32 Time: 13:35 04/29/25 13:32 Patient unable to answer at this time (ie. confused, unrespo /Reproduction History /Reproductive History - ironer machine: /Reproductive Hx- ironer machine Hx Now No 05/01/25 02:34 Gestational Age (in weeks): EDC: Hx Hx Para Hx Section SAB No 05/01/25 02:34 Active Medications Active Medications: Current Medications Generic Name Dose Route Start Last Admin Trade Name Freq PRN Reason Stop Dose Admin Acetaminophen 1,000 mg 04/29/25 14:00 05/01/25 06:11 Acetaminophen 500 Mg Tablet PO Not Given Q8 RILEY Amitriptyline HCl 50 mg 04/29/25 22:00 04/30/25 21:49 Amitriptyline 25 Mg Tablet PO 50 mg QHS RILEY Administration Amlodipine Besylate 10 mg 04/29/25 16:05 05/01/25 08:22 Amlodipine 10 Mg Tablet PO Not Given DAILY [facility] Protocol Ascorbic Acid 500 mg 04/29/25 17:00 05/01/25 08:22 Ascorbic Acid 500 Mg Tablet PO Not Given BIDCM [facility] Atorvastatin Calcium 10 mg 04/29/25 22:00 04/30/25 21:47 Atorvastatin Calcium 10 Mg Tablet PO 10 mg QHS RILEY Administration Buspirone HCl 15 mg 04/29/25 22:00 05/01/25 06:11 Buspirone 15 Mg Tablet PO Not Given TID RILEY Ferrous Sulfate 325 mg 04/30/25 12:00 04/30/25 11:06 Ferrous Sulfate 325 Mg Tablet PO 325 mg LUNCH [facility] Administration Furosemide 40 mg 04/30/25 10:00 05/01/25 08:22 Furosemide 40 Mg Tablet PO Not Given BIDLX [facility] Protocol Glucagon 1 mg 04/29/25 16:04 Glucagon 1 Mg/Ml Syringe IM X1 PRN Hypoglycemia Protocol Dextrose 250 mls @ 0 mls/hr 04/29/25 16:04 Dextrose 10%-Water IV .Q0M PRN HYPOGLYCEMIA Protocol As Directed Dextrose/Sodium Chloride 1,000 mls @ 50 mls/hr 04/30/25 23:45 05/01/25 00:14 IV 05/01/25 19:44 50 mls/hr .Q20H RILEY Administration Lactated Ringer's 1,000 mls @ 15 mls/hr 05/01/25 09:00 IV .Q48H [facility] Insulin Glargine 10 unit 04/29/25 17:00 04/30/25 16:32 Insulin Glargine-Yfgn 100 Unit/Ml Pen SC 10 unit DINNER RILEY Administration Protocol Insulin Human Lispro 0 unit 04/29/25 22:00 05/01/25 06:13 Insulin Lispro 100 Unit/Ml Insuln.Pen SC Not Given ACHS [facility] Protocol Levothyroxine Sodium 100 mcg 04/30/25 06:00 05/01/25 06:11 Levothyroxine 100 Mcg Tablet PO Not Given DAILY@0600 [facility] Losartan Potassium 100 mg 04/30/25 10:00 05/01/25 08:22 Losartan Potassium 100 Mg Tablet PO Not Given DAILY [facility] Protocol Melatonin 5 mg 04/29/25 22:00 04/30/25 21:47 Melatonin 10 Mg Tablet PO 5 mg QHS RILEY Administration Metoprolol Succinate 50 mg 04/29/25 16:05 05/01/25 08:30 Metoprolol(Xl)Succ 50 Mg Tablet PO 50 mg DAILY RILEY Administration Protocol Morphine Sulfate 2 mg 04/29/25 14:00 05/01/25 08:35 Morphine 2 Mg/Ml Syringe IV 2 mg Q4H PRN PRN Administration Pain Score 1-10 or Pre PT/OT Nitroglycerin 0.4 mg 04/29/25 13:00 Nitroglycerin (Inpatient Use) 0.4 Mg Tab.Subl SL Q5M PRN CARDIAC/CHEST PAIN Oxycodone HCl 2.5 - 5 mg 04/29/25 13:00 04/30/25 21:52 Oxycodone 5 Mg Tablet PO 2.5 mg Q4H PRN PRN Administration Pain Score 4-10 Pantoprazole Sodium 40 mg 04/30/25 10:00 04/30/25 09:31 Pantoprazole Sodium 40 Mg Tablet PO 40 mg DAILY RILEY Administration Polyethylene Glycol 17 gm 04/30/25 10:00 05/01/25 08:22 Polyethylene Glycol 3350 17 Gm Packet PO Not Given DAILY [facility]LEY Potassium Chloride 40 meq 04/30/25 08:00 05/01/25 08:23 Potassium Chloride Oral Tablet 20 Meq PO Not Given BREAKFAST RILEY Senna/Docusate Sodium 2 tablet 04/29/25 22:00 04/30/25 21:48 Senna/Docusate Sodium 1 Tablet PO 2 tablet BID RILEY Administration Sodium Chloride 10 - 40 ml 04/29/25 13:40 05/01/25 08:35 0.9% Saline Lock 10 Ml Syringe IV 10 ml UD PRN Administration SALINE FLUSH [facility] Medical History Heart failure Overweight (BMI 25.0-29.9) Coronary artery disease Iron deficiency anemia History of non-ST elevation myocardial infarction (NSTEMI) (2014) Longstanding persistent atrial fibrillation Essential (primary) hypertension Anxiety Hypothyroidism Hyperlipidemia Secondary pulmonary arterial hypertension Atherosclerosis of coronary artery of [place] heart without angina pectoris Paroxysmal atrial fibrillation Paroxysmal atrial flutter Sick sinus syndrome Home Medications ?Medication ?Instructions ?Recorded ?Last Taken ?Type buspirone 15 mg tablet 15 mg PO TID ANXIETY 3 04/04/25 History omeprazole 40 mg capsule,delayed 40 mg PO DAILY ACID R EFLUX 06/02/13 04/02/25 History release nitroglycerin 0.4 mg sublingual 0.4 mg sublingual Q5M PRN CHEST 04/21/15 Unknown History tablet PAIN amitriptyline 50 mg tablet 50 mg PO QHS DEPRESSION 03/0404/02/25 History levothyroxine 100 mcg tablet 100 mcg PO DAILY THYROID 12/14/23 04/04/25 History (Synthroid) rivaroxaban 20 mg tablet (Xarelto) 20 mg PO QPM #90 ta bs 10/06/24 04/02/25 Rx losartan 100 mg tablet 100 mg PO DAILY blood pressu re #90 11/18/24 04/03/25 Rx tabs potassium chloride 20 mEq 40 meq (2 x 20 mEq) PO QDAY #90 11/21/24 04/02/25 Rx tablet,extended release(part/cryst) tabs metoprolol succinate 50 mg 50 mg PO DAILY heart/BP #90 tabs 11/23/24 04/04/25 Rx tablet,extended release 24 hr amlodipine 10 mg tablet 10 mg PO DAILY 02/08/2503/14 History ferrous sulfate 325 mg (65 mg 65 mg PO DAILY 02/08/25 04/03/25 History iron) tablet (FeroSul) ascorbic acid (vitamin C) 500 mg 500 mg PO BID 5 04/03/25 History tablet (Vitamin C) acetaminophen 500 mg tablet 1,000 mg (2 x 500 mg) PO Q 8 PRN 04/06/25 Unknown Rx pain #0 tabs oxycodone 5 mg tablet 5 mg PO TID 3 days #9 tabs 0 04/06/25 Unknown Rx dapagliflozin propanediol 10 mg 10 mg PO DAILY 5 Unknown History tablet empagliflozin 10 mg tablet 10 mg PO DAILY . 04/29/25 U nknown History (Jardiance) furosemide 40 mg tablet (Lasix) 40 mg PO Q12H water pi ll 04/29/25 Unknown History melatonin 5 mg tablet 5 mg PO QHS 04/29/25 Unknown History simvastatin 20 mg tablet 20 mg PO QHS cholesterol Unknown History Allergy/AdvReac Type Severity Reaction Status Date / Time poison fany extract (Poison Allergy Rash Verified 04/29/25 10:19 Fany Extract) Sulfa (Sulfonamide Allergy Hives Verified 04/29/25 10:19 Antibiotics) Family History Mother Cancer Father Cancer Brother CAD (coronary artery disease) Sister CAD (coronary artery disease) Surgical History S/P kyphoplasty History of tubal ligation History of appendectomy History of hysterectomy History of left heart catheterization (10/09/13) History of coronary artery stent placement (09/2010) Hx of atrioventricular node ablation (03/31/16) Presence of cardiac pacemaker (04/26/15) Social History household members: spouse Smoking Status: Former smoker how long ago did patient quit smokin's alcohol intake: never substance use type: does not use caffeine: Yes Type: coffee Number of servings: 3 Review of Systems (Anesthesia) ROS Narrative System reviewed and no additional complaints, except as documented.
[2025-05-01] MEDS: Lactated Ringers 1,000 ML 15 ML IV (09:20)
--- NOTE | 2025-05-01 09:50 | PCM.PN.ORT ---
Subjective Subjective Patient seen and examined.Denies any new complaints. Ready for surgery. Pain in the right groin otherwise denies new complaints. Denies fevers, chills, nausea vomiting, chest pain or shortness of breath. Objective Data Objective Data Vital Signs: Vital Signs Temp Pulse Resp BP Pulse Ox O2 Del Method O2 Flow Rate 97.5 F L 81 16 128/73 H 96 Room Air 2 05/01/25 09:08 05/01/25 09:08 05/01/25 09:08 05/01/25 09:08 05/01/25 09:08 05/01/25 08:00 05/01/25 09:08 Oxygen Flow Rate (L/min) 2 Oxygen Delivery Method Room Air Weight: 175 lb 11.335 oz Body Mass Index (BMI) 26.6 Intake & Output: Intake and Output for Last 24 Hours 04/29/25 04/30/25 05/01/25 23:59 23:59 23:59 Intake Total 1000 / 1000 Output Total 1220 / 1220 450 / 450 Balance -220 / -220 -450 / -450 Lab / Micro Data 05/01/25 05:04 05/01/25 05:04 Labs: Laboratory Results - last 24 hr 04/30/25 11:09: POC Glucose 180 H 04/30/25 16:28: POC Glucose 155 H 04/30/25 21:57: POC Glucose 107 H 05/01/25 05:04: WBC 7.1, RBC 3.85 L, Hgb 11.6 L, Hct 36.9 L, MCV 95.8, MCH 30.1, MCHC 31.4 L, RDW Std Deviation 54.1 H, RDW Coeff of Jose Alberto 16.0 H, Plt Count 259, MPV 9.5, Immature Gran % (Auto) 0.400, Neut % (Auto) 66.9, Lymph % (Auto) 14.1 L, [place] % (Auto) 11.6 H, Eos % (Auto) 6.4 H, Baso % (Auto) 0.6, Absolute Neuts (auto) 4.8, Absolute Lymphs (auto) 1.01, Nucleated RBC % 0, PT 17.6 H, INR 1.4, APTT 37.0 H, Sodium 134, Potassium 4.3, Chloride 99, Carbon Dioxide 25.0, Anion Gap 10, BUN 26 H, Creatinine 1.45 H, Estim Creat Clear Calc 31.44 L, Est GFR (MDRD) Non-Af 35 L, BUN/Creatinine Ratio 18.2, Glucose 137 H, Calcium 8.7, TSH 0.248 L, Blood Type O POSITIVE, Antibody Screen NEGATIVE 05/01/25 06:12: POC Glucose 137 H Rhythm Strip Rhythm Strip: paced Rate: 80 Ectopy: None Physical Exam Narrative General -A&Ox3, NAD, appears stated age. Vital signs stable, afebrile. Respiratory -normal work of breathing, no intercostal retractions. CV -pulses regular, brisk capillary refill ?4 limbs. Abdomen-soft, nontender, nondistended. No guarding, rigidity, rebound tenderness. Musculoskeletal/neurologic -full range of motion nontender throughout bilateral upper extremities, left lower extremity with full sensation and strength in all dermatomes and myotomes. No midline cervical tenderness. Left hip posterior lateral skin incision is healing well without erythema or drainage. Right lower extremity-shortened and externally rotated. Pain with logroll of the right lower extremity. Nontender throughout the right knee femoral shaft, tibial shaft and left foot/ankle. Brisk capillary refill. Sensation intact light touch L3-S1 dermatomes. DF, PF, EHL intact. DP, PT 2+. Pelvis is stable, nontender. Skin is intact without lacerations, abrasions. No ecchymosis noted. Assessment & Plan Assessment/Plan (1) Closed right hip fracture: PLAN: Plan to proceed with right hip hemiarthroplasty today. Patient is medically optimized. Plan to restart anticoagulant postoperative day #1. Patient has been NPO since midnight. All questions were answered to patient's satisfaction. Informed consent confirmed with the patient. Blood consent also obtained. Further recommendations pending surgery.
[2025-05-01] MEDS: Cefazolin 1 GM/5 ML Vial 2 GM IV (10:01)
[2025-05-01] MEDS: Lactated Ringers 1,000 ML 1000 ML IV (10:01)
[2025-05-01] MEDS: Lidocaine 1% (5 ml sdv) 5 ML Vial 4 ML IV (10:10)
[2025-05-01] MEDS: fentaNYL 100 MCG/2 ML Ampul IV (10:49)
[2025-05-01] MEDS: JPS (Morphine 10mg/ml) OPERA.SITE (11:05)
--- NOTE | 2025-05-01 11:36 | PCM.POST.ANE ---
Anesthesia: Postop Eval I Current Vital Signs Temperature: 98.7 F Pulse Rate: 80 Blood Pressure: 130/46 Respiratory Rate: 18 Pulse Ox: 98 Assessment Airway patent: Yes Spontaneous unlabored respirations: Yes nausea: No Vomiting: No Anesthesia Complication: No Fluid Hydration Crystalloid volume administer (ml): 1,000 Total IV fluid infused: 1,000 Progress Note Anesthesia document: Postop Eval 1 completed: Yes
--- NOTE | 2025-05-01 11:59 | RAD_ITS ---
PROCEDURE: HIP MIN 2 VIEWS (PORTABLE) 05/01/2025 REASON FOR EXAM: POST OP TECHNIQUE: Procedure Code: RADH_P Modality: DX Procedure: HIP MIN 2 VIEWS (PORTABLE) Laterality: Right COMPARISON: Pelvis and right hip, 04/29/2025 FINDINGS: Status post interval right total hip arthroplasty. The prosthetic femoral head appears located in the acetabulum. The distal end of the femoral component is well demonstrated. There is normal postoperative soft tissue swelling and soft tissue air. There is a normal-appearing left total hip arthroplasty. RAD/Hip Min 2 Views (Portable) IMPRESSION: Normal-appearing right total hip arthroplasty. Other findings as noted. Reading Location: [place] [id number]
--- NOTE | 2025-05-01 12:00 | OP.PCM_ITS ---
Operative Report (Standard) Operative Information Date of Procedure: 05/01/25 Pre-Operative Diagnosis: Right displaced femoral neck fracture Post-Operative Diagnosis: Right displaced femoral neck fracture Surgery/Procedure Performed: Right hip hemiarthroplasty cleaning staff supervisor: Yes Neurosurgeon: Shavon Ferguson Tasks completed by first leveler: Opening & closing, Implanting device and Retracting Type of Anesthesia: General RN Documented Start/Stop Times: Operation Date: 05/01/25 10:15 Case Time Into Pre-Op 05/01/25 08:54 Out of Pre-Op 05/01/25 09:57 Anesthesia Start 05/01/25 10:01 Into Room 05/01/25 10:01 Procedure Start 05/01/25 10:33 Procedure End 05/01/25 11:22 Anesthesia End 05/01/25 11:30 Out of Room 05/01/25 11:30 Into Recovery 05/01/25 11:35 Procedure Start Time: 10:33 Procedure Stop Time: 11:22 Select all DRAINS/GRAFTS/IMPLANTS that apply: Implanted device Implanted device details: [place] insignia high offset size #6, 50 mm Unitrax cobalt chrome head with standard neck adjustment sleeve Estimated Blood Loss: 250 cc Fluids Replaced: 1 L crystalloid Specimen collected: No Description of surgery: Prior to the procedure, patient was brought to the preoperative holding area where patient was identified by name, medical record number and date of . I confirmed the side, site, operation to be performed with the patient. Informed consent was confirmed, All questions were answered to patient satisfaction. The operative extremity was marked. She was also seen by anesthesia staff and anesthesia consent obtained.At time of the operative procedure, pt was brought to the operative suite. General anesthesia was induced on the hospital bed and endotracheal tube placed. After adequate anesthesia, patient was transferred to a standard operating table. She was then positioned in the lateral decubitus position with the right side up and held in position by PPT Reasearch hip positioner system. All bony prominences were well-padded. A axillary roll was placed under the patient's left axilla. Peroneal nerve was free with a blanket on the nonoperative extremity. Leg lengths were reproduced from patient's position when she was supine. The right lower extremity was then prepped and draped in normal, sterile orthopedic fashion. We performed a timeout with all parties in attendance in agreement with the side, site, and operation to be performed. No concerns were voiced and would like to proceed. I first marked an incision along the lateral aspect of the hip centered over the greater trochanteric tip. In standard posterior approach, a curvilinear incision was made above the trochanter. An approximately 12 cm incision was made. Skin was sharply incised with a 10 blade scalpel carried deep through subcutaneous layers to the level of the IT band. Gelpi retractors were then placed. A Cheatham was used to expose the IT band. Bovie cautery was then used for hemostasis and then to open the IT band. This was opened in line with the incision. A Charnley retractor was then placed. Sciatic nerve was free. The trochanteric bursa was then debrided. This identified the short external rotators after internal rotation of the hip. The fracture site was easily identified at this point. Short external rotators were taken down and tagged for later repair. Hip capsule was also tagged for repair with a stay suture. We then freshened the neck cut with a sagittal saw. Anterior and posterior acetabular retractors were placed to gain access to the femoral head. A corkscrew was used to remove the head. Any remaining debris was debrided from the acetabulum. We then placed the femoral head on the back table for measurement. We did use trial heads and selected a final size 50 with good suction fit. Box chisel was then utilized to gain access to the femoral canal. Canal finder was placed. Sequential broaches were used and press-fit manner. A final size 6 achieved excellent vertical and rotational stability. We then trialed with a standard and subsequently high offset stem. I offset did achieve excellent stability and reproduction of abductor tension. Leg lengths appeared appropriate with a size 0 neck length. Trials were then removed. Wound was irrigated. A size 6 stem was then impacted with excellent fixation. Final head was then impacted over the Glynn taper neck. Final reduction was performed. 3- minute dilute sterile Betadine soak was performed and then copiously irrigated normal saline solution. A posterior capsular repair was performed with #2 Ethibond suture. IT band was closed watertight with #1 Vicryl suture. Deeper fascial layers were closed with 0 Vicryl suture in interrupted fashion. Subcutaneous layers were reapproximated with 2-0 Vicryl suture and skin reapproximated with skin emily. A silver dressing was applied. Patient tolerated procedure well without complication. She was positioned back in the supine position on her hospital bed and subsequently extubated safely. She was transferred to PACU in stable condition. Blankets were placed between the patient's legs for the first 24 hours. Need for skilled program services assistant: Shavon Ferguson PA-C was critical to the outcome of the case. During the course of the procedure the physician program services assistant played a vital role. Her intimate knowledge of my steps in the procedure aided in safe and expedient completion of the procedure. The PA played a vital role in positioning particularly in obtaining the appropriate positioning. The PA was also vital in the retraction of soft tissues during the exposure and protecting vital structures. The PA was also vital and obtaining hip reduction and assisting with implant placement. She also played a vital role in closure and dressing application with my direct supervision. Post Operative Plan: Weightbearing: Weightbearing as tolerated right lower extremity, posterior hip precautions. Blankets or pillows between legs x 24 hours Antibiotics: Ancef 1 g every 8 hours x 3 doses DVT Prophylaxis: Restart Xarelto postoperative day #1, SCDs, JUAN DANIEL hose and early mobilization Quinones: None Dressing: Maintain silver dressing x5 days X-Rays: PACU x-rays. Follow-up 2-week x-rays in the office. Follow-up: 2 weeks in my office for staple removal Surgical Findings: Displaced right femoral neck fracture. Stable right hip following final reduction. Complications Complications: No Admit VTE Documentation VTE Present on Admission: No VTE Mechan Device Prophylaxis: SCD's and Knee High JUAN DANIEL Hose VTE Pharm Prophylaxis ordered?: Yes
--- NOTE | 2025-05-01 12:42 | POSTOPAN2_ITS ---
Anesthesia Postop Eval I Sum Postop Eval Completion status Anesthesia document: Postop Eval 1 completed: Yes Anesthesia Postop Eval I Summary Anesthesia Postop Eval I Summary: Anesthesia Postop Eval I: Assessment Summary Airway patent Yes 05/01/25 11:36 [email or web address] Spontaneous unlabored Yes 05/01/25 11:36 [email or web address] respirations Mental status nausea No 05/01/25 11:36 [email or web address] Vomiting No 05/01/25 11:36 [email or web address] Anesthesia Postop Eval I: Fluid Summary Crystalloid volume administer 1,000 05/01/25 11:36 [email or web address] (ml) Colloids volume administered ( ml) Blood Product volume administered (ml) Total IV fluid infused 1,000 05/01/25 11:36 [email or web address] Anesthesia Postop Eval I: Summary Notes Anesthesia Complication No 05/01/25 11:36 [email or web address] Anesthesia Complication Comment: Post-operative progress note Anesthesia: Postop Eval II Evaluation Mental status: Awake Pain Level: 0 nausea: No Vomiting: No
--- NOTE | 2025-05-01 12:42 | PCM.POSTANE2 ---
Anesthesia Postop Eval I Sum Postop Eval Completion status Anesthesia document: Postop Eval 1 completed: Yes Anesthesia Postop Eval I Summary Anesthesia Postop Eval I Summary: Anesthesia Postop Eval I: Assessment Summary Airway patent Yes 05/01/25 11:36 [email or web address] [email or web address] Spontaneous unlabored Yes 05/01/25 11:36 [email or web address] BENCH [email or web address] respirations Mental status nausea No 05/01/25 11:36 [email or web address] BENCH [email or web address] Vomiting No 05/01/25 11:36 [email or web address] BENCH [email or web address] Anesthesia Postop Eval I: Fluid Summary Crystalloid volume administer 1,000 05/01/25 11:36 JEWELRY BENCH [email or web address] (ml) Colloids volume administered ( ml) Blood Product volume administered (ml) Total IV fluid infused 1,000 05/01/25 11:36 JEWELRY [email or web address] [email or web address] Anesthesia Postop Eval I: Summary Notes Anesthesia Complication No 05/01/25 11:36 [email or web address] [email or web address] [email or web address] Anesthesia Complication Comment: Post-operative progress note Anesthesia: Postop Eval II Evaluation Mental status: Awake Pain Level: 0 nausea: No Vomiting: No
--- NOTE | 2025-05-01 13:01 | CASEMGMT ---
Social Work- SW met with pt spouse and dtr to discuss discharge preferences. Pt spouse and dtr report that pt will return to [facility] at discharge. Both report no needs at this time; pt out of the room for surgery. DCA notified of intent to return. Plan: [facility]; return to skilled level of care FELICITY [facility]vas
--- NOTE | 2025-05-01 15:51 | PN.HOSP_ITS ---
Reason for Visit Chief Complaint: Fall and hit her head and right lower extremity. No LOC Objective Data Objective Data Vital Signs: Vital Signs Temp Pulse Resp BP Pulse Ox O2 Del Method O2 Flow Rate 97.3 F L 80 15 112/60 95 Room Air 3 05/01/25 14:55 05/01/25 14:55 05/01/25 14:55 05/01/25 14:55 05/01/25 14:55 05/01/25 14:55 05/01/25 12:55 Oxygen Flow Rate (L/min) 3 Oxygen Delivery Method Room Air Weight: 175 lb 11.335 oz Body Mass Index (BMI) 26.6 Intake & Output: Intake and Output for Last 24 Hours 04/29/25 04/30/25 05/01/25 23:59 23:59 23:59 Intake Total 1000 / 1000 421.67 / 421.67 Output Total 1220 / 1220 825 / 825 Balance -220 / -220 -403.33 / -403.33 Lab / Micro Data 05/01/25 05:04 05/01/25 05:04 Labs: Laboratory Results - last 24 hr 04/30/25 16:28: POC Glucose 155 H 04/30/25 21:57: POC Glucose 107 H 05/01/25 05:04: WBC 7.1, RBC 3.85 L, Hgb 11.6 L, Hct 36.9 L, MCV 95.8, MCH 30.1, MCHC 31.4 L, RDW Std Deviation 54.1 H, RDW Coeff of Jose Alberto 16.0 H, Plt Count 259, MPV 9.5, Immature Gran % (Auto) 0.400, Neut % (Auto) 66.9, Lymph % (Auto) 14.1 L , [place] % (Auto) 11.6 H, Eos % (Auto) 6.4 H, Baso % (Auto) 0.6, Absolute Neuts (auto) 4.8, Absolute Lymphs (auto) 1.01, Nucleated RBC % 0, PT 17.6 H, INR 1.4, APTT 37.0 H, Sodium 134, Potassium 4.3, Chloride 99, Carbon Dioxide 25.0, Anion Gap 10, BUN 26 H, Creatinine 1.45 H, Estim Creat Clear Calc 31.44 L, Est GFR (MDRD) Non-Af 35 L, BUN/Creatinine Ratio 18.2, Glucose 137 H, Calcium 8.7, TSH 0.248 L, Blood Type O POSITIVE, Antibody Screen NEGATIVE 05/01/25 06:12: POC Glucose 137 H 05/01/25 13:12: POC Glucose 180 H Radiography Diagnostic Testing: Radiology Impression Hip X-Ray 05/01/25 11:59 IMPRESSION: Normal-appearing right total hip arthroplasty. Other findings as noted. Reading Location: [place] [address] Rhythm Strip Rhythm Strip: paced Rate: 80 Ectopy: None Physical Exam Narrative Seen and examined. Patient had right hip surgery done today. Patient is comfortable. Had her lunch. Physical exam General: Alert, Oriented x3, Cooperative HEENT:Mild reactive swelling/edema over parietal resolved. No hematoma. PERRLA, EOMI, Normocephalic. Oral: Oral mucosa moist. No Gingival or Mucosal Lesions/ Ulcerations Neck: Supple, No JVD, Negative Carotid Bruits Chest wall/Lungs: Air entry diminished in bilateral lung bases. No crepitation/rhonchi Cardiovascular: Paced rhythm. Systolic murmur Abdomen: Bowel Sounds Present, Soft, Non Tender, Non-Distended : No dysuria. No renal angle tenderness. No suprapubic tenderness. Extremities: No edema, Capillary Refill Less than 3 Seconds Skin: No rash. No ulcer. Left hip surgical incision well-healed. Musculoskeletal: Right hip posterior approach. Dressing dry, intact. No soakage. No acute tenderness. Neurological: Cranial nerves II-XII grossly intact, DTR 2+/4. No acute focal neurological deficit. Psych/Mental Status: Normal Affect, Appropriate. Assessment & Plan Assessment/Plan (1) Closed right hip fracture: PLAN: Plan This 84 old female is being admitted for left hip subcapital fracture after fall and mild head injury but no laceration or LOC 1. Acute debility due to acute/subacute right right femoral neck fracture with recent history of left femoral neck fracture status post left hip cemented arthroplasty: Patient is being admitted to [facility] floor. X-ray shows acute fracture in subcapital region of right femoral neck with coxa vera morphology. Left hip arthroplasty hardware remains intact. No dislocation. Orthopedic surgeon Dr. Grier consulted from ED physician. Pain control, muscle relaxant. PT and OT ordered. Hold Xarelto. Bowel and bladder care. Twelve-lead EKG reviewed and shows V paced rhythm at 80 bpm. QTc 548 ms, prolonged because of pacemaker. Patient is moderately high risk for surgery because of history of multiple cardiac conditions including chronic HFpEF, persistent A-fib and severe pulmonary hypertension. Patient is DNR CC arrest. With no intubation. 04/30: Patient is DNR CC arrest with no intubation. ACS surgical risk is elevated with serious or any complication above average. UTI renal hemorrhage with discharged to detention evaluate average. Risk of not having surgery is very high with bedsore, immobilization, risk of DVT/PE and . This was discussed with the patient's at the bedside. 05/01: Right hip hemiarthroplasty done on 05/01/2025. Patient has Quinones catheter. No acute issues. No acute shortness of breath or chest pain. Pain is controlled. Bowel care on stool softeners. 2. Fall and mild head injury but no LOC or laceration: Mild leukocytosis probably due to fall, right hip fracture inflammatory reaction. No sign or symptoms of infection 3. Chronic HFpEF, compensated persistent A-fib/flutter/sick sinus syndrome with pacemaker, moderately severe TR, severe pulmonary hypertension: She had last dose of Xarelto yesterday evening on 04/28. She will need 2 days of Xarelto prior to surgery therefore surgery posted for Thursday morning.Echo in February 08, 2025: LVEF 65%, size and systolic function normal. Severe pulmonary hypertension, PASP 76 mmHg with 3+ TR. 1+ eccentric AI. 1+ PI. LA severely enlarged. 3. Type 2 diabetes mellitus: Glucose 186. Last A1c 6.7% on February 08. Accu-Chek before meals and at bedtime with Humalog sliding scale coverage and hypoglycemia protocol. Hold oral hypoglycemic agents 04/30: A1c 6.2%. Glucose 151. N.p.o. past midnight. D5 half NS during n.p.o. status ordered. 05/01: Glucoses lately controlled. 155-137. 4. Hypothyroidism: Continue Synthroid. TSH 3.08 on February 0805/01: TSH low at 0.248. Free T4 ordered. 5. Hypertension: BP 150/70, acceptable range as per her age. Continue antihypertensive medications 6. CAD status post previous stent: 7. Dyslipidemia on a statin continued 8. GERD, anxiety and depression: Home medication conciliation done. DVT prophylaxis was on Xarelto at home, hold it. Bilateral SCDs 05/01: Rivaroxaban 15 mg from tomorrow p.m. Living will/advanced directive/end of life care: Patient does have living will or advanced directive. Patient's is her POA. Patient daughter present in the room. After discussion of benefits/risks procedures involved with full code, DNR CC arrest and DNR CC, the patient opted for DNR CC arrest with no intubation. I informed the patient and the daughter that DNRCC status will be held during surgery and first 24 hours postop period. Patient doesn't want artificial life support including intubation, tube feed, ventilator and/chest compression, central venous catheter, vasopressor and DC shock if needed Laboratory Results 04/30/25 16:28: POC Glucose 155 H 04/30/25 21:57: POC Glucose 107 H 05/01/25 05:04: WBC 7.1, RBC 3.85 L, Hgb 11.6 L, Hct 36.9 L, MCV 95.8, MCH 30.1, MCHC 31.4 L, RDW Std Deviation 54.1 H, RDW Coeff of Jose Alberto 16.0 H, Plt Count 259, MPV 9.5, Immature Gran % (Auto) 0.400, Neut % (Auto) 66.9, Lymph % (Auto) 14.1 L , [place] % (Auto) 11.6 H, Eos % (Auto) 6.4 H, Baso % (Auto) 0.6, Absolute Neuts (auto) 4.8, Absolute Lymphs (auto) 1.01, Nucleated RBC % 0, PT 17.6 H, INR 1.4, APTT 37.0 H, Sodium 134, Potassium 4.3, Chloride 99, Carbon Dioxide 25.0, Anion Gap 10, BUN 26 H, Creatinine 1.45 H, Estim Creat Clear Calc 31.44 L, Est GFR (MDRD) Non-Af 35 L, BUN/Creatinine Ratio 18.2, Glucose 137 H, Calcium 8.7, TSH 0.248 L, Blood Type O POSITIVE, Antibody Screen NEGATIVE 05/01/25 06:12: POC Glucose 137 H 05/01/25 13:12: POC Glucose 180 H Clinical Impression(s) from Imaging Studies Brain CT 04/29/25 10:35 IMPRESSION: No acute intracranial abnormalities. Reading Location: [facility] Chest X-Ray 04/29/25 11:00 IMPRESSION: No Acute Findings. Hip/Pelvis X-Ray 04/29/25 11:00 IMPRESSION: Acute subcapital right femoral neck fracture. Charges/Coding Visit Charges Inpatient E&M: 01844 Subs Hosp L2
--- NOTE | 2025-05-01 16:12 | CHAPLAIN ---
Type of Pastoral Visit _x__ Initial Visit ___ Follow-up Visit ___ On-call Visit ___ General Patient Visit ___ Spiritual Assessment ___ Family Conference ___ Bereavement ___ Rapid Response ___ Code Blue ___ Other (describe below) Pastoral Care Referral From _x__ Patient ___ Family ___ Nurse ___ Physician ___ Ballistician ___ Edging Supervisor ___ Other (describe below) Sacrament/Intervention _x__ Active listening ___ Anointing ___ Hoahaoism ___ Bereavement ___ Communion _x__ Kathy exploration ___ _x__ Life review _x__ Prayer ___ Reconciliation ___ Sacrament of Sick _x__ Supportive presence ___ Wedding ___ Other (describe below) Pastoral Comments patient and a daughter are in the room; pt explains her second fall and break of a hip in three weeks; pt has admittedly expressed frustration at this situation but is also able to put it in perspective and made attempts at some humor; pt is not a latter day member but recalls her early experiences in the latter day and being baptized; pt has two sons out of the area but of whom she is quite proud; pt's daughter lives with her and herself and is a big help to us; pt understands what she is facing with therapy and welcomes prayer and presence
[2025-05-01] MEDS: Insulin Glargine-YFGN 100 UNIT/ML Pen 10 UNIT SC (16:33)
--- NOTE | 2025-05-01 16:34 | CASEMGMT ---
Addendum entered by Keila Jameson 05/01/25 16:39: Pt was being skilled at [facility] and will not need another qualifying stay. Keila Jameson DC Planning Asst. Original Note: Discharge Planning Updates sent via [facility] to [facility] at [place]. Keila Jameson DC Planning Asst.
[2025-05-01] MEDS: Cefazolin 1 GM/50 ML BAG IV (17:49)
[2025-05-01] MEDS: Senna/Docusate Sodium 1 Tablet 2 TABLET PO (21:26)
[2025-05-01] MEDS: MELATONIN 10 MG TABLET 5 MG PO (21:27)
[2025-05-01] MEDS: Polyethylene Glycol 3350 17 GM PACKET PO (21:27)
[2025-05-02 01:00] VITALS: BP 118/65; PULSE 80; RESP 19; TEMP 36.6; O2SAT 94
[2025-05-02] MEDS: Cefazolin 1 GM/50 ML BAG IV ×2 (02:15→10:29)
[2025-05-02 04:42] VITALS: BP 114/62; PULSE 80; RESP 16; TEMP 36.6; O2SAT 95
[2025-05-02 05:51] VITALS: BMI 27.3
[2025-05-02 06:40] LABS: Hematocrit 31.3 % (37-47); Hemoglobin 10.1 g/dL (12.0-15.0); Mean Corp Hgb Conc 32.3 g/dL (32-36); Mean Corpuscular Volume 94.6 fL (81-99); Mean Platelet Vol. 10.7 fl (6.2-12.0); Platelet Count 290 K/mm3 (150-450); RBC Distribution Width CV 15.6 % (11.6-14.6); RBC Distribution Width SD 51.8 fl (35.1-43.9); Red Blood Count 3.31 M/mm3 (4.2-5.4); White Blood Count 12.4 K/mm3 (4.4-11.0)
[2025-05-02 07:00] VITALS: PULSE 80
[2025-05-02 07:15] LABS: Anion Gap 10 (5-15); BUN 29 mg/dL (4-19); BUN/Creat Ratio 22.2 RATIO (10-20); Calcium,Total 9.0 mg/dL (7.6-11.0); Carbon Dioxide 24.3 mmol/L (21.0-32.0); Chloride 99 mmol/L (98-108); Estimated Creatinine Clearance 35.79 ml/min (50-250); Glucose 142 mg/dL (70-99); Potassium 4.8 mmol/L (3.3-5.1)
[2025-05-02 08:00] VITALS: BP 115/62; PULSE 79; RESP 15; TEMP 36.3; O2SAT 98
[2025-05-02] MEDS: Senna/Docusate Sodium 1 Tablet 2 TABLET PO (08:15)
[2025-05-02] MEDS: Potassium Chloride Oral Tablet 20 MEQ 40 MEQ PO (08:15)
[2025-05-02 08:16] VITALS: PULSE 79
[2025-05-02] MEDS: Metoprolol(XL)Succ 50 MG Tablet PO (08:16)
[2025-05-02] MEDS: 0.9% Saline Lock 10 ML Syringe IV (10:29)
[2025-05-02] MEDS: Polyethylene Glycol 3350 17 GM PACKET PO (10:30)
--- NOTE | 2025-05-02 11:35 | PCM.TXEXTCAR ---
Diet Diet Order/Speech Therapy: INPATIENT Hospital Diet / Speech Therapy Order(s) 05/01/25 16:17 Diet: Cardiac - Heart Healthy Dietary Modifications:: Cardiac / Heart Healthy Routine Orders/Code Status Suppository Type: Dulcolax 10mg Suppository Frequency: Daily PRN Routine Lab Work: CBC (CBC and BMP in 3 days.) and BMP DC O2, CPAP, BIPAP needs Home O2 Discharge instructions: No Wound(s) Lt hip: Wound Type: healing surgical inscision Rt Hip: Wound Type: Surgical Incision Therapies Physical Therapy: Eval and Treat Occupational Therapy: Eval and Treat Speech Therapy: Eval and Treat Problem/Diagnosis (1) Closed right hip fracture: Status: Acute Code(s): S72.001A - Fracture of unspecified part of neck of right femur, initial encounter for closed fracture (2) Status post hemiarthroplasty of right hip: Status: Acute Code(s): Z96.641 - Presence of right artificial hip joint Plan This 84 old female is being admitted for left hip subcapital fracture after fall and mild head injury but no laceration or LOC 1. Acute debility due to acute/subacute right right femoral neck fracture with recent history of left femoral neck fracture status post left hip cemented arthroplasty: [facility]. X-ray shows acute fracture in subcapital region of right femoral neck with coxa vera morphology. Left hip arthroplasty hardware remains intact. No dislocation. Orthopedic surgeon Dr. Grier consulted from ED physician. Pain control, muscle relaxant. PT and OT ordered. Hold Xarelto. Bowel and bladder care. Twelve-lead EKG reviewed and shows V paced rhythm at 80 bpm. QTc 548 ms, prolonged because of pacemaker. Patient is moderately high risk for surgery because of history of multiple cardiac conditions including chronic HFpEF, persistent A-fib and severe pulmonary hypertension. Patient is DNR CC arrest. With no intubation. 04/30: Patient is DNR CC arrest with no intubation. ACS surgical risk is elevated with serious or any complication above average. UTI renal hemorrhage with discharged to correction evaluate average. Risk of not having surgery is very high with bedsore, immobilization, risk of DVT/PE and . This was discussed with the patient's at the bedside. 05/01: Right hip hemiarthroplasty done on 05/01/2025. Patient has Quinones catheter. No acute issues. No acute shortness of breath or chest pain. Pain is controlled. Bowel care on stool softeners. 05/02: Patient is doing well. Remove Quinones catheter and telemetry discontinued. Patient participated well in PT. Mild reactive soft tissue postop edema on right hip but no hematoma/bruise. Hemodynamically blood pressure and heart rate is good. Fall and mild head injury but no LOC or laceration: Mild leukocytosis probably due to fall, right hip fracture inflammatory reaction. No sign or symptoms of infection 3. Chronic HFpEF, compensated persistent A-fib/flutter/sick sinus syndrome with pacemaker, moderately severe TR, severe pulmonary hypertension: She had last dose of Xarelto yesterday evening on 04/28. She will need 2 days of Xarelto prior to surgery therefore surgery posted for Thursday morning.Echo in February 08, 2025: LVEF 65%, size and systolic function normal. Severe pulmonary hypertension, PASP 76 mmHg with 3+ TR. 1+ eccentric AI. 1+ PI. LA severely enlarged. 05/02: Patient on heart failure regimen including SGLT2 inhibitor. On furosemide 40 mg p.o. twice daily regimen. Hold lisinopril ELLEN exact etiology unclear possible due to diuretic/lisinopril:: Patient admitting BUN/creatinine 126/1.18, went up to 26/1.52. Furosemide and losartan held. Continue holding losartan. Lasix resumed as patient creatinine started improving from 1.5-1.29 today. Hold losartan for 5 more days. Monitor kidney function after 3 days. 3. Type 2 diabetes mellitus: Glucose 186. Last A1c 6.7% on February 08. Accu-Chek before meals and at bedtime with Humalog sliding scale coverage and hypoglycemia protocol. Hold oral hypoglycemic agents 04/30: A1c 6.2%. Glucose 151. N.p.o. past midnight. D5 half NS during n.p.o. status ordered. 05/01: Glucoses lately controlled. 155-137. 05/02 glucoses controlled A1c 6.2%. 4. Hypothyroidism: Continue Synthroid. TSH 3.08 on February 0805/01: TSH low at 0.248. Free T4 ordered. 5. Hypertension: BP 150/70, acceptable range as per her age. Continue antihypertensive medications 6. CAD status post previous stent: 7. Dyslipidemia on a statin continued 8. GERD, anxiety and depression: Home medication conciliation done. DVT prophylaxis was on Xarelto at home, hold it. Bilateral SCDs 05/01: Rivaroxaban 15 mg from tomorrow p.m. Living will/advanced directive/end of life care: Patient does have living will or advanced directive. Patient's is her POA. Patient daughter present in the room. After discussion of benefits/risks procedures involved with full code, DNR CC arrest and DNR CC, the patient opted for DNR CC arrest with no intubation. I informed the patient and the daughter that DNRCC status will be held during surgery and first 24 hours postop period. Patient doesn't want artificial life support including intubation, tube feed, ventilator and/chest compression, central venous catheter, vasopressor and DC shock if needed Laboratory Results 04/30/25 16:28: POC Glucose 155 H 04/30/25 21:57: POC Glucose 107 H 05/01/25 05:04: WBC 7.1, RBC 3.85 L, Hgb 11.6 L, Hct 36.9 L, MCV 95.8, MCH 30.1, MCHC 31.4 L, RDW Std Deviation 54.1 H, RDW Coeff of Jose Alberto 16.0 H, Plt Count 259, MPV 9.5, Immature Gran % (Auto) 0.400, Neut % (Auto) 66.9, Lymph % (Auto) 14.1 L, [place] % (Auto) 11.6 H, Eos % (Auto) 6.4 H, Baso % (Auto) 0.6, Absolute Neuts (auto) 4.8, Absolute Lymphs (auto) 1.01, Nucleated RBC % 0, PT 17.6 H, INR 1.4, APTT 37.0 H, Sodium 134, Potassium 4.3, Chloride 99, Carbon Dioxide 25.0, Anion Gap 10, BUN 26 H, Creatinine 1.45 H, Estim Creat Clear Calc 31.44 L, Est GFR (MDRD) Non-Af 35 L, BUN/Creatinine Ratio 18.2, Glucose 137 H, Calcium 8.7, TSH 0.248 L, Blood Type O POSITIVE, Antibody Screen NEGATIVE 05/01/25 06:12: POC Glucose 137 H 05/01/25 13:12: POC Glucose 180 H Clinical Impression(s) from Imaging Studies Brain CT 04/29/25 10:35 IMPRESSION: No acute intracranial abnormalities. Reading Location: [facility] Chest X-Ray 04/29/25 11:00 IMPRESSION: No Acute Findings. Hip/Pelvis X-Ray 04/29/25 11:00 IMPRESSION: Acute subcapital right femoral neck fracture. Allergies/Procedures Done in Hospital Allergies poison fany extract (Poison Fany Extract) Allergy (Verified 04/29/25 10:19) Rash Sulfa (Sulfonamide Antibiotics) Allergy (Verified 04/29/25 10:19) Hives Type of Care/Length of Stay Estimated LOS: Convalescent Care Less Than 30 days Type of Care Needed: Skilled Rehab Potential: Good Prognosis: Good Additional Orders/Day of Discharge Day of Discharge: 05/02/25 Dietary and Speech Recommendations Dietitian Recommendations/Changes: Will continue liberalized regular diet with consistency/texture as per [employer]. Will continue 120mL ensure plus HP 4 times per day w/ medpass. Monitor blood glucose level and restrict dietary carbohydrate as needed. Trend weights closely and adjust ONS as needed to optimize nutrition and prevent energy/pro depletion. Discharge Plan Admission Admit Date/Time: 04/29/25 11:53 Primary Reason for Your Visit: Right hip fracture status post hemiarthroplasty Attending Provider: Lex Liu Primary Care Provider: Matt Rocha Consulting Providers: Akhil Grier Discharge Orders/Prescriptions Prescriptions: New acetaminophen 500 mg Tablet 1,000 mg PO Q8 Qty: 0 0RF Rx Instructions: Every 8 hourly for 5 more days and then every 8 hourly as needed for severe pain calcium carbonate 200 mg calcium (500 mg) Tablet,Chewable 500 mg PO TIDCM Qty: 0 0RF oxycodone 5 mg Tablet 2.5 - 5 mg PO Q4H PRN PRN (Reason: Pain Score 4-10) 3 Days Qty: 7 0RF sennosides-docusate sodium [Stimulant Laxative Plus] 8.6-50 mg Tablet 2 tab PO BID Qty: 0 0RF Xarelto 15 mg Tablet 15 mg PO 1700 30 Days Qty: 0 0RF Continued amitriptyline 50 mg tablet 50 mg PO QHS omeprazole 40 MG capsule 40 mg PO DAILY buspirone 15 MG tablet 15 mg PO TID nitroglycerin 0.4 MG tablet 0.4 mg SUBLINGUAL Q5M PRN (Reason: CHEST PAIN ) ascorbic acid (vitamin C) [Vitamin C] 500 mg tablet 500 mg PO BID levothyroxine [Synthroid] 100 mcg tablet 100 mcg PO DAILY amlodipine 10 mg tablet 10 mg PO DAILY Patient Comments: PT THINKS SHE IS STILL TAKING BUT HAS NOT FILLED IN SEVERAL MONTHS ferrous sulfate [FeroSul] 325 mg (65 mg iron) tablet 65 mg PO DAILY melatonin 5 mg tablet 5 mg PO QHS simvastatin 20 mg tablet 20 mg PO QHS potassium chloride 20 mEq tablet,ER particles/crystals 40 meq PO QDAY Qty: 90 3RF metoprolol succinate 50 mg tablet extended release 24 hr 50 mg PO DAILY Qty: 90 3RF Changed furosemide [Lasix] 40 mg tablet 40 mg PO Q12H 30 Days Qty: 60 0RF Held Jardiance 10 mg tablet 10 mg PO DAILY Hold Instructions: Hold for 5 days losartan 100 mg tablet 100 mg PO DAILY Qty: 90 3RF Hold Instructions: Hold for 5 days Discontinued acetaminophen 500 mg Tablet 1,000 mg PO Q8 PRN (Reason: pain) Qty: 0 0RF oxycodone 5 mg Tablet 5 mg PO TID 3 Days Qty: 9 0RF dapagliflozin propanediol 10 mg tablet 10 mg PO DAILY Xarelto 20 mg tablet 20 mg PO QPM Qty: 90 3RF Rx Instructions: must administer with evening meal Referrals / Follow Up: Matt Rocha MD [Primary Care Provider, Family Practice] Akhil Grier DO [Med Staff - Active Staff, Orthopedics] - Within 2 Weeks Disposition Disposition (needs filled in before D/C Order can be placed): Detention Facility
--- NOTE | 2025-05-02 11:46 | CASEMGMT ---
Discharge Planning [facility] notified that pt will likely return today. Keila Jameson DC Planning Asst
--- NOTE | 2025-05-02 11:54 | PN.ORTHO_ITS ---
Subjective Subjective Patient is s/p right sided hemiarthroplasty right hip with Dr Grier 05/01/2025. Patient was admitted 04/30/2025 and found to have a displaced femoral neck fracture of the right hip. She is status post 1 month left hip hemiarthroplasty with Dr. Rodriguez for another fall. Today patient resting comfortably in bed. Rates pain 7/10. States taking Tylenol and oxycodone and ice help to relieve pain. Patient has been up with therapy. Walking with the assit of a walker. Weightbearing as tolerated. Afebrile, no chest pain, shortness of breath, negative calf pain/ erythema, and no other signs of DVT. Objective Data Objective Data Vital Signs: Vital Signs Temp Pulse Resp BP Pulse Ox O2 Del Method O2 Flow Rate 97.3 F L 79 15 115/62 98 Room Air 3 05/02/25 08:00 05/02/25 08:16 05/02/25 08:00 05/02/25 08:00 05/02/25 08:00 05/02/25 10:50 05/01/25 12:55 Oxygen Flow Rate (L/min) 3 Oxygen Delivery Method Room Air Weight: 81.9 kg Body Mass Index (BMI) 27.3 Intake & Output: Intake and Output for Last 24 Hours 04/30/25 05/01/25 05/02/25 23:59 23:59 23:59 Intake Total 1000 / 1000 471.67 / 471.67 313 / 313 Output Total 1220 / 1220 1175 / 1175 400 / 400 Balance -220 / -220 -703.33 / -703.33 -87 / -87 Lab / Micro Data 05/02/25 05:28 05/02/25 05:28 Labs: Laboratory Results - last 24 hr 05/01/25 13:12: POC Glucose 180 H 05/01/25 16:30: POC Glucose 247 H 05/01/25 21:30: POC Glucose 232 H 05/02/25 05:28: WBC 12.4 H, RBC 3.31 L, Hgb 10.1 L, Hct 31.3 L, MCV 94.6, MCH 30.5, MCHC 32.3, RDW Std Deviation 51.8 H, RDW Coeff of Jose Alberto 15.6 H, Plt Count 290, MPV 10.7, Sodium 133, Potassium 4.8, Chloride 99, Carbon Dioxide 24.3, Anion Gap 10, BUN 29 H, Creatinine 1.29 H, Estim Creat Clear Calc 35.79 L, Est GFR (MDRD) Non-Af 41 L, BUN/Creatinine Ratio 22.2 H, Glucose 142 H, Calcium 9.0 05/02/25 06:59: POC Glucose 134 H Radiography Diagnostic Testing: Radiology Impression Hip X-Ray 05/01/25 11:59 IMPRESSION: Normal-appearing right total hip arthroplasty. Other findings as noted. Reading Location: [place] [address] Rhythm Strip Rhythm Strip: paced Rate: 80 Ectopy: None Physical Exam Narrative Patient resting comfortably in bed No signs of acute distress Satting well on room air Limb is warm to touch, Sensation intact throughout entire lower extremity, including saphenous, sural, superficial and deep peroneal, and tibial distribution. DP/PT pulses bounding. Dorsiflexion plantarflexion strength 5/5 Dressing clear dry intact Calf nontender to palpation, no erythema, no edema. Negative Homans Assessment & Plan Assessment/Plan (1) Closed right hip fracture: (2) Status post hemiarthroplasty of right hip: PLAN: Plan Postop day 1 right hip hemiarthroplasty with Dr. Grier 05/01/2025 1. Will continue PT today. Weightbearing as tolerated 2. plan for discharge per primary. Stable from orthopedic standpoint okay for discharge when ready. 3. Patient will follow up for post op appointment in 2 weeks with our office. This will need to be arranged 4. DVT prophylaxis : Resume Xarelto today postop day 1 continue as previously prescribed. 5. Pain control: patient instructed to take tylenol 500mg 2 tablets TID. and oxycodone 1-2 tablets every 4-6 hours only as needed for pain control. 6. ok to remove post op dressing. post op day 5 7. Orthopedics to sign off at this time.
--- NOTE | 2025-05-02 12:41 | PCM.TXEXTCAR ---
Diet Diet Order/Speech Therapy: INPATIENT Hospital Diet / Speech Therapy Order(s) 05/01/25 16:17 Diet: Cardiac - Heart Healthy Dietary Modifications:: Cardiac / Heart Healthy Routine Orders/Code Status Suppository Type: Dulcolax 10mg Suppository Frequency: Daily PRN DC O2, CPAP, BIPAP needs Home O2 Discharge instructions: No Wound(s) Lt hip: Wound Type: healing surgical inscision Rt Hip: Wound Type: Surgical Incision Therapies Extremity Affected:: Bilateral Lower Physical Therapy: Eval and Treat Occupational Therapy: Eval and Treat Speech Therapy: Eval and Treat Problem/Diagnosis (1) Closed right hip fracture: Status: Acute Code(s): S72.001A - Fracture of unspecified part of neck of right femur, initial encounter for closed fracture (2) Status post hemiarthroplasty of right hip: Status: Acute Code(s): Z96.641 - Presence of right artificial hip joint Plan This 84 old female is being admitted for left hip subcapital fracture after fall and mild head injury but no laceration or LOC 1. Acute debility due to acute/subacute right right femoral neck fracture with recent history of left femoral neck fracture status post left hip cemented arthroplasty: Patient is being admitted to [facility] floor. X-ray shows acute fracture in subcapital region of right femoral neck with coxa vera morphology. Left hip arthroplasty hardware remains intact. No dislocation. Orthopedic surgeon Dr. Grier consulted from ED physician. Pain control, muscle relaxant. PT and OT ordered. Hold Xarelto. Bowel and bladder care. Twelve-lead EKG reviewed and shows V paced rhythm at 80 bpm. QTc 548 ms, prolonged because of pacemaker. Patient is moderately high risk for surgery because of history of multiple cardiac conditions including chronic HFpEF, persistent A-fib and severe pulmonary hypertension. Patient is DNR CC arrest. With no intubation. 04/30: Patient is DNR CC arrest with no intubation. ACS surgical risk is elevated with serious or any complication above average. UTI renal hemorrhage with discharged to group home evaluate average. Risk of not having surgery is very high with bedsore, immobilization, risk of DVT/PE and . This was discussed with the patient's at the bedside. 05/01: Right hip hemiarthroplasty done on 05/01/2025. Patient has Quinones catheter. No acute issues. No acute shortness of breath or chest pain. Pain is controlled. Bowel care on stool softeners. 2. Fall and mild head injury but no LOC or laceration: Mild leukocytosis probably due to fall, right hip fracture inflammatory reaction. No sign or symptoms of infection 3. Chronic HFpEF, compensated persistent A-fib/flutter/sick sinus syndrome with pacemaker, moderately severe TR, severe pulmonary hypertension: She had last dose of Xarelto yesterday evening on 04/28. She will need 2 days of Xarelto prior to surgery therefore surgery posted for Thursday.Echo in February 08, 2025: LVEF 65%, size and systolic function normal. Severe pulmonary hypertension, PASP 76 mmHg with 3+ TR. 1+ eccentric AI. 1+ PI. LA severely enlarged. 3. Type 2 diabetes mellitus: Glucose 186. Last A1c 6.7% on February 08. Accu-Chek before meals and at bedtime with Humalog sliding scale coverage and hypoglycemia protocol. Hold oral hypoglycemic agents 04/30: A1c 6.2%. Glucose 151. N.p.o. past midnight. D5 half NS during n.p.o. status ordered. 05/01: Glucoses lately controlled. 155-137. 4. Hypothyroidism: Continue Synthroid. TSH 3.08 on February 0805/01: TSH low at 0.248. Free T4 ordered. 5. Hypertension: BP 150/70, acceptable range as per her age. Continue antihypertensive medications 6. CAD status post previous stent: 7. Dyslipidemia on a statin continued 8. GERD, anxiety and depression: Home medication conciliation done. DVT prophylaxis was on Xarelto at home, hold it. Bilateral SCDs 05/01: Rivaroxaban 15 mg from tomorrow p.m. Living will/advanced directive/end of life care: Patient does have living will or advanced directive. Patient's is her POA. Patient daughter present in the room. After discussion of benefits/risks procedures involved with full code, DNR CC arrest and DNR CC, the patient opted for DNR CC arrest with no intubation. I informed the patient and the daughter that DNRCC status will be held during surgery and first 24 hours postop period. Patient doesn't want artificial life support including intubation, tube feed, ventilator and/chest compression, central venous catheter, vasopressor and DC shock if needed Laboratory Results 04/30/25 16:28: POC Glucose 155 H 04/30/25 21:57: POC Glucose 107 H 05/01/25 05:04: WBC 7.1, RBC 3.85 L, Hgb 11.6 L, Hct 36.9 L, MCV 95.8, MCH 30.1, MCHC 31.4 L, RDW Std Deviation 54.1 H, RDW Coeff of Jose Alberto 16.0 H, Plt Count 259, MPV 9.5, Immature Gran % (Auto) 0.400, Neut % (Auto) 66.9, Lymph % (Auto) 14.1 L, [place] % (Auto) 11.6 H, Eos % (Auto) 6.4 H, Baso % (Auto) 0.6, Absolute Neuts (auto) 4.8, Absolute Lymphs (auto) 1.01, Nucleated RBC % 0, PT 17.6 H, INR 1.4, APTT 37.0 H, Sodium 134, Potassium 4.3, Chloride 99, Carbon Dioxide 25.0, Anion Gap 10, BUN 26 H, Creatinine 1.45 H, Estim Creat Clear Calc 31.44 L, Est GFR (MDRD) Non-Af 35 L, BUN/Creatinine Ratio 18.2, Glucose 137 H, Calcium 8.7, TSH 0.248 L, Blood Type O POSITIVE, Antibody Screen NEGATIVE 05/01/25 06:12: POC Glucose 137 H 05/01/25 13:12: POC Glucose 180 H Clinical Impression(s) from Imaging Studies Brain CT 04/29/25 10:35 IMPRESSION: No acute intracranial abnormalities. Reading Location: [facility] Chest X-Ray 04/29/25 11:00 IMPRESSION: No Acute Findings. Hip/Pelvis X-Ray 04/29/25 11:00 IMPRESSION: Acute subcapital right femoral neck fracture. Allergies/Procedures Done in Hospital Allergies poison fany extract (Poison Fany Extract) Allergy (Verified 04/29/25 10:19) Rash Sulfa (Sulfonamide Antibiotics) Allergy (Verified 04/29/25 10:19) Hives Type of Care/Length of Stay Estimated LOS: Convalescent Care Less Than 30 days Type of Care Needed: Skilled Rehab Potential: Good Prognosis: Good Additional Orders/Day of Discharge Day of Discharge: 05/02/25 Dietary and Speech Recommendations Dietitian Recommendations/Changes: Will continue liberalized regular diet with consistency/texture as per [employer]. Will continue 120mL ensure plus HP 4 times per day w/ medpass. Monitor blood glucose level and restrict dietary carbohydrate as needed. Trend weights closely and adjust ONS as needed to optimize nutrition and prevent energy/pro depletion. Discharge Plan Admission Admit Date/Time: 04/29/25 11:53 Primary Reason for Your Visit: Right hip fracture status post hemiarthroplasty Attending Provider: Lex Liu Primary Care Provider: Matt Rocha Consulting Providers: Akhil Grier Discharge Orders/Prescriptions Prescriptions: New acetaminophen 500 mg Tablet 1,000 mg PO Q8 Qty: 0 0RF Rx Instructions: Every 8 hourly for 5 more days and then every 8 hourly as needed for severe pain calcium carbonate 200 mg calcium (500 mg) Tablet,Chewable 500 mg PO TIDCM Qty: 0 0RF oxycodone 5 mg Tablet 2.5 - 5 mg PO Q4H PRN PRN (Reason: Pain Score 4-10) 3 Days Qty: 7 0RF sennosides-docusate sodium [Stimulant Laxative Plus] 8.6-50 mg Tablet 2 tab PO BID Qty: 0 0RF Xarelto 15 mg Tablet 15 mg PO 1700 30 Days Qty: 0 0RF Continued amitriptyline 50 mg tablet 50 mg PO QHS omeprazole 40 MG capsule 40 mg PO DAILY buspirone 15 MG tablet 15 mg PO TID nitroglycerin 0.4 MG tablet 0.4 mg SUBLINGUAL Q5M PRN (Reason: CHEST PAIN ) ascorbic acid (vitamin C) [Vitamin C] 500 mg tablet 500 mg PO BID levothyroxine [Synthroid] 100 mcg tablet 100 mcg PO DAILY amlodipine 10 mg tablet 10 mg PO DAILY Patient Comments: PT THINKS SHE IS STILL TAKING BUT HAS NOT FILLED IN SEVERAL MONTHS ferrous sulfate [FeroSul] 325 mg (65 mg iron) tablet 65 mg PO DAILY melatonin 5 mg tablet 5 mg PO QHS simvastatin 20 mg tablet 20 mg PO QHS potassium chloride 20 mEq tablet,ER particles/crystals 40 meq PO QDAY Qty: 90 3RF metoprolol succinate 50 mg tablet extended release 24 hr 50 mg PO DAILY Qty: 90 3RF Changed furosemide [Lasix] 40 mg tablet 40 mg PO Q12H 30 Days Qty: 60 0RF Held Jardiance 10 mg tablet 10 mg PO DAILY Hold Instructions: Hold for 5 days losartan 100 mg tablet 100 mg PO DAILY Qty: 90 3RF Hold Instructions: Hold for 5 days Discontinued acetaminophen 500 mg Tablet 1,000 mg PO Q8 PRN (Reason: pain) Qty: 0 0RF oxycodone 5 mg Tablet 5 mg PO TID 3 Days Qty: 9 0RF dapagliflozin propanediol 10 mg tablet 10 mg PO DAILY Xarelto 20 mg tablet 20 mg PO QPM Qty: 90 3RF Rx Instructions: must administer with evening meal Referrals / Follow Up: Matt Rocha MD [Primary Care Provider, Family Practice] Akhil Grier DO [Med Staff - Active Staff, Orthopedics] - Within 2 Weeks Disposition Disposition (needs filled in before D/C Order can be placed): Group Home Facility
--- NOTE | 2025-05-02 12:54 | DS.PCM_ITS ---
Providers Date of Admission: 04/29/25 Date of Discharge: 05/02/25 Primary Care Physician: Dr. Matt Rocha MD Consultations 04/29/25 13:00 Consult: Orthopedics Routine Consulting Provider: Akhil Grier Reason for Consult: right hip fracture EMERGENT Consult: No MD Notified: Yes Date Notified: 04/29/25 Time Notified: 11:58 Method of Notification: ED Physician Initiated Reason For Visit: RIGHT HIP FRACTURE Diagnosis Discharge Diagnosis (1) Closed right hip fracture: Status: Acute Code(s): S72.001A - Fracture of unspecified part of neck of right femur, initial encounter for closed fracture (2) Status post hemiarthroplasty of right hip: Status: Acute Code(s): Z96.641 - Presence of right artificial hip joint Plan This 84 old female is being admitted for left hip subcapital fracture after fall and mild head injury but no laceration or LOC 1. Acute debility due to acute/subacute right right femoral neck fracture with recent history of left femoral neck fracture status post left hip cemented arthroplasty: Patient is being admitted to [facility] floor. X-ray shows acute fracture in subcapital region of right femoral neck with coxa vera morphology. Left hip arthroplasty hardware remains intact. No dislocation. Orthopedic surgeon Dr. Grier consulted from ED physician. Pain control, muscle relaxant. PT and OT ordered. Hold Xarelto. Bowel and bladder care. Twelve-lead EKG reviewed and shows V paced rhythm at 80 bpm. QTc 548 ms, prolonged because of pacemaker. Patient is moderately high risk for surgery because of history of multiple cardiac conditions including chronic HFpEF, persistent A-fib and severe pulmonary hypertension. Patient is DNR CC arrest. With no intubation. 04/30: Patient is DNR CC arrest with no intubation. ACS surgical risk is elevated with serious or any complication above average. UTI renal hemorrhage with discharged to skilled nursing evaluate average. Risk of not having surgery is very high with bedsore, immobilization, risk of DVT/PE and . This was discussed with the patient's at the bedside. 05/01: Right hip hemiarthroplasty done on 05/01/2025. Patient has Quinones catheter. No acute issues. No acute shortness of breath or chest pain. Pain is controlled. Bowel care on stool softeners. 05/02: Patient is doing well. Remove Quinones catheter and telemetry discontinued. Patient participated well in PT. Mild reactive soft tissue postop edema on right hip but no hematoma/bruise. Hemodynamically blood pressure and heart rate is good. Fall and mild head injury but no LOC or laceration: Mild leukocytosis probably due to fall, right hip fracture inflammatory reaction. No sign or symptoms of infection 3. Chronic HFpEF, compensated persistent A-fib/flutter/sick sinus syndrome with pacemaker, moderately severe TR, severe pulmonary hypertension: She had last dose of Xarelto yesterday evening on 04/28. She will need 2 days of Xarelto prior to surgery therefore surgery posted for Thursday.Echo in February 08, 2025: LVEF 65%, size and systolic function normal. Severe pulmonary hypertension, PASP 76 mmHg with 3+ TR. 1+ eccentric AI. 1+ PI. LA severely enlarged. 05/02: Patient on heart failure regimen including SGLT2 inhibitor. On furosemide 40 mg p.o. twice daily regimen. Hold lisinopril ELLEN exact etiology unclear possible due to diuretic/lisinopril:: Patient admitting BUN/creatinine 126/1.18, went up to 26/1.52. Furosemide and losartan held. Continue holding losartan. Lasix resumed as patient creatinine started improving from 1.5-1.29 today. Hold losartan for 5 more days. Monitor BMP kidney function after 3 days. 3. Type 2 diabetes mellitus: Glucose 186. Last A1c 6.7% on February 08. Accu-Chek before meals and at bedtime with Humalog sliding scale coverage and hypoglycemia protocol. Hold oral hypoglycemic agents 04/30: A1c 6.2%. Glucose 151. N.p.o. past midnight. D5 half NS during n.p.o. status ordered. 05/01: Glucoses lately controlled. 155-137. 05/02 glucoses controlled A1c 6.2%. 4. Hypothyroidism: Continue Synthroid. TSH 3.08 on February 0805/01: TSH low at 0.248. Free T4 ordered. 5. Hypertension: BP 150/70, acceptable range as per her age. Continue antihypertensive medications 6. CAD status post previous stent: 7. Dyslipidemia on a statin continued 8. GERD, anxiety and depression: Home medication conciliation done. DVT prophylaxis was on Xarelto at home, hold it. Bilateral SCDs 05/01: Rivaroxaban 15 mg from tomorrow p.m. 05/02 rivaroxaban to start from today at 5 PM Living will/advanced directive/end of life care: Patient does have living will or advanced directive. Patient's is her POA. Patient daughter present in the room. After discussion of benefits/risks procedures involved with full code, DNR CC arrest and DNR CC, the patient opted for DNR CC arrest with no intubation. I informed the patient and the daughter that DNRCC status will be held during surgery and first 24 hours postop period. Patient doesn't want artificial life support including intubation, tube feed, ventilator and/chest compression, central venous catheter, vasopressor and DC shock if needed Discharge medication reconciliation done. Discharge follow-up instructions completed. Discharge process discussed with the patient and all questions were answered to patient's satisfaction. Follow with PCP in 1 to 2 weeks Total time spent, exact 35 minutes on discharge meds reconciliation, examination, coordination of care with nurses and ancillary staff, review of imaging and blood test and discussion with the patient on follow-up instructions. Laboratory Results 04/30/25 16:28: POC Glucose 155 H 04/30/25 21:57: POC Glucose 107 H 05/01/25 05:04: WBC 7.1, RBC 3.85 L, Hgb 11.6 L, Hct 36.9 L, MCV 95.8, MCH 30.1, MCHC 31.4 L, RDW Std Deviation 54.1 H, RDW Coeff of Jose Alberto 16.0 H, Plt Count 259, MPV 9.5, Immature Gran % (Auto) 0.400, Neut % (Auto) 66.9, Lymph % (Auto) 14.1 L , [place] % (Auto) 11.6 H, Eos % (Auto) 6.4 H, Baso % (Auto) 0.6, Absolute Neuts (auto) 4.8, Absolute Lymphs (auto) 1.01, Nucleated RBC % 0, PT 17.6 H, INR 1.4, APTT 37.0 H, Sodium 134, Potassium 4.3, Chloride 99, Carbon Dioxide 25.0, Anion Gap 10, BUN 26 H, Creatinine 1.45 H, Estim Creat Clear Calc 31.44 L, Est GFR (MDRD) Non-Af 35 L, BUN/Creatinine Ratio 18.2, Glucose 137 H, Calcium 8.7, TSH 0.248 L, Blood Type O POSITIVE, Antibody Screen NEGATIVE 05/01/25 06:12: POC Glucose 137 H 05/01/25 13:12: POC Glucose 180 H Clinical Impression(s) from Imaging Studies Brain CT 04/29/25 10:35 IMPRESSION: No acute intracranial abnormalities. Reading Location: [facility] Chest X-Ray 04/29/25 11:00 IMPRESSION: No Acute Findings. Hip/Pelvis X-Ray 04/29/25 11:00 IMPRESSION: Acute subcapital right femoral neck fracture. Medications at Discharge Home Medications buspirone 15 mg tablet 15 mg PO TID ANXIETY 06/02/13 omeprazole 40 mg capsule,delayed release 40 mg PO DAILY ACID REFLUX 06/02/13 nitroglycerin 0.4 mg sublingual tablet 0.4 mg sublingual Q5M PRN CHEST PAIN 04/21/15 amitriptyline 50 mg tablet 50 mg PO QHS DEPRESSION 02/17/23 levothyroxine 100 mcg tablet (Synthroid) 100 mcg PO DAILY THYROID 12/14/23 losartan 100 mg tablet 100 mg PO DAILY blood pressure #90 tabs 11/18/24 Held on 05/02/25. Instructions: Hold for 5 days potassium chloride 20 mEq tablet,extended release(part/cryst) 40 meq (2 x 20 mEq) PO QDAY #90 tabs 11/21/24 metoprolol succinate 50 mg tablet,extended release 24 hr 50 mg PO DAILY heart/BP #90 tabs 11/23/24 amlodipine 10 mg tablet 10 mg PO DAILY 02/08/25 ferrous sulfate 325 mg (65 mg iron) tablet (FeroSul) 65 mg PO DAILY 02/08/25 ascorbic acid (vitamin C) 500 mg tablet (Vitamin C) 500 mg PO BID 04/03/25 empagliflozin 10 mg tablet (Jardiance) 10 mg PO DAILY . 04/29/25 Held on 05/02/25. Instructions: Hold for 5 days melatonin 5 mg tablet 5 mg PO QHS 04/29/25 simvastatin 20 mg tablet 20 mg PO QHS cholesterol 04/29/25 acetaminophen 500 mg tablet 1,000 mg (2 x 500 mg) PO Q8 #0 tabs 05/02/25 calcium carbonate 500 mg (2.5 x 200 mg calcium (500 mg)) PO TIDCM #0 tabs 05/02/25 furosemide 40 mg tablet (Lasix) 40 mg PO Q12H water pill 30 days #60 tabs 05/02/25 oxycodone 5 mg tablet 2.5 - 5 mg (0.5 - 1 x 5 mg) PO Q4H PRN PRN Pain Score 4-10 3 days #7 tabs 05/02/25 rivaroxaban 15 mg tablet (Xarelto) 15 mg PO 1700 30 days #0 tabs 05/02/25 sennosides 8.6 mg-docusate sodium 50 mg tablet (Stimulant Laxative Plus) 2 tab PO BID #0 tabs 05/02/25 Physical Exam Narrative Seen and examined. No acute postop complication. Patient participated in PT. Quinones catheter to be discontinued today. Physical exam General: Alert, Oriented x3, Cooperative HEENT:Mild reactive swelling/edema over parietal resolved. No hematoma. PERRLA, EOMI, Normocephalic. Oral: Oral mucosa moist. No Gingival or Mucosal Lesions/ Ulcerations Neck: Supple, No JVD, Negative Carotid Bruits Chest wall/Lungs: Air entry diminished in bilateral lung bases. No crepitation/rhonchi Cardiovascular: Paced rhythm. Systolic murmur Abdomen: Bowel Sounds Present, Soft, Non Tender, Non-Distended : Quinones catheter clear urine. No renal angle tenderness. No suprapubic tenderness. Extremities: No edema, Capillary Refill Less than 3 Seconds Skin: Left hip surgical incision well-healed. Musculoskeletal: Right hip posterior approach. Dressing dry, intact. No soakage. No acute tenderness. Neurological: Cranial nerves II-XII grossly intact, DTR 2+/4. No acute focal neurological deficit. Psych/Mental Status: Normal Affect, Appropriate. Weight / BMI Weight Weight: 180 lb 8.937 oz Body Mass Index (BMI) 27.3 ABG / Lab / Microbiology Data 05/02/25 05:28 05/02/25 05:28 Laboratory: Laboratory Results - last 24 hr 05/01/25 13:12: POC Glucose 180 H 05/01/25 16:30: POC Glucose 247 H 05/01/25 21:30: POC Glucose 232 H 05/02/25 05:28: WBC 12.4 H, RBC 3.31 L, Hgb 10.1 L, Hct 31.3 L, MCV 94.6, MCH 30.5, MCHC 32.3, RDW Std Deviation 51.8 H, RDW Coeff of Jose Alberto 15.6 H, Plt Count 290, MPV 10.7, Sodium 133, Potassium 4.8, Chloride 99, Carbon Dioxide 24.3, Anion Gap 10, BUN 29 H, Creatinine 1.29 H, Estim Creat Clear Calc 35.79 L, Est GFR (MDRD) Non-Af 41 L, BUN/Creatinine Ratio 22.2 H, Glucose 142 H, Calcium 9.0 05/02/25 06:59: POC Glucose 134 H 05/02/25 12:12: POC Glucose 156 H D/C Instructions DC O2, CPAP, BIPAP Needs Home O2 Discharge instructions: No Meaningful Use Info Meaningful Use Meaningful Use Diagnoses (Choose all that apply): None applicable Discharge Plan Admission Admit Date/Time: 04/29/25 11:53 Primary Reason for Your Visit: Right hip fracture status post hemiarthroplasty Attending Provider: Lex Liu Primary Care Provider: Matt Rocha Consulting Providers: Akhil Grier Discharge Orders/Prescriptions Prescriptions: New acetaminophen 500 mg Tablet 1,000 mg PO Q8 Qty: 0 0RF Rx Instructions: Every 8 hourly for 5 more days and then every 8 hourly as needed for severe pain calcium carbonate 200 mg calcium (500 mg) Tablet,Chewable 500 mg PO TIDCM Qty: 0 0RF oxycodone 5 mg Tablet 2.5 - 5 mg PO Q4H PRN PRN (Reason: Pain Score 4-10) 3 Days Qty: 7 0RF sennosides-docusate sodium [Stimulant Laxative Plus] 8.6-50 mg Tablet 2 tab PO BID Qty: 0 0RF Xarelto 15 mg Tablet 15 mg PO 1700 30 Days Qty: 0 0RF Continued amitriptyline 50 mg tablet 50 mg PO QHS omeprazole 40 MG capsule 40 mg PO DAILY buspirone 15 MG tablet 15 mg PO TID nitroglycerin 0.4 MG tablet 0.4 mg SUBLINGUAL Q5M PRN (Reason: CHEST PAIN ) ascorbic acid (vitamin C) [Vitamin C] 500 mg tablet 500 mg PO BID levothyroxine [Synthroid] 100 mcg tablet 100 mcg PO DAILY amlodipine 10 mg tablet 10 mg PO DAILY Patient Comments: PT THINKS SHE IS STILL TAKING BUT HAS NOT FILLED IN SEVERAL MONTHS ferrous sulfate [FeroSul] 325 mg (65 mg iron) tablet 65 mg PO DAILY melatonin 5 mg tablet 5 mg PO QHS simvastatin 20 mg tablet 20 mg PO QHS potassium chloride 20 mEq tablet,ER particles/crystals 40 meq PO QDAY Qty: 90 3RF metoprolol succinate 50 mg tablet extended release 24 hr 50 mg PO DAILY Qty: 90 3RF Changed furosemide [Lasix] 40 mg tablet 40 mg PO Q12H 30 Days Qty: 60 0RF Held Jardiance 10 mg tablet 10 mg PO DAILY Hold Instructions: Hold for 5 days losartan 100 mg tablet 100 mg PO DAILY Qty: 90 3RF Hold Instructions: Hold for 5 days Discontinued acetaminophen 500 mg Tablet 1,000 mg PO Q8 PRN (Reason: pain) Qty: 0 0RF oxycodone 5 mg Tablet 5 mg PO TID 3 Days Qty: 9 0RF dapagliflozin propanediol 10 mg tablet 10 mg PO DAILY Xarelto 20 mg tablet 20 mg PO QPM Qty: 90 3RF Rx Instructions: must administer with evening meal Referrals / Follow Up: Matt Rocha MD [Primary Care Provider, Family Practice] Akhil Grier DO [Med Staff - Active Staff, Orthopedics] - Within 2 Weeks Disposition Disposition (needs filled in before D/C Order can be placed): [facility] Facility Charges/Coding Visit Charges Inpatient E&M: 27070 Disch Hosp >30min
--- NOTE | 2025-05-02 13:10 | PHA.DC.MR.R ---
Pharmacy PR Med Reconciliation Pharmacy Service has performed discharge medication reconciliation for this patient. The patient's discharge medication list was reviewed for discrepancies and discrepancies were resolved. Medications at Discharge Home Medications buspirone 15 mg tablet 15 mg PO TID ANXIETY 06/02/13 omeprazole 40 mg capsule,delayed release 40 mg PO DAILY ACID REFLUX 06/02/13 nitroglycerin 0.4 mg sublingual tablet 0.4 mg sublingual Q5M PRN CHEST PAIN 04/21/15 amitriptyline 50 mg tablet 50 mg PO QHS DEPRESSION 02/17/23 levothyroxine 100 mcg tablet (Synthroid) 100 mcg PO DAILY THYROID 12/14/23 losartan 100 mg tablet 100 mg PO DAILY blood pressure #90 tabs 11/18/24 Held on 05/02/25. Instructions: Hold for 5 days potassium chloride 20 mEq tablet,extended release(part/cryst) 40 meq (2 x 20 mEq) PO QDAY #90 tabs 11/21/24 metoprolol succinate 50 mg tablet,extended release 24 hr 50 mg PO DAILY heart/BP #90 tabs 11/23/24 amlodipine 10 mg tablet 10 mg PO DAILY 02/08/25 ferrous sulfate 325 mg (65 mg iron) tablet (FeroSul) 65 mg PO DAILY 02/08/25 ascorbic acid (vitamin C) 500 mg tablet (Vitamin C) 500 mg PO BID 04/03/25 empagliflozin 10 mg tablet (Jardiance) 10 mg PO DAILY . 04/29/25 Held on 05/02/25. Instructions: Hold for 5 days melatonin 5 mg tablet 5 mg PO QHS 04/29/25 simvastatin 20 mg tablet 20 mg PO QHS cholesterol 04/29/25 acetaminophen 500 mg tablet 1,000 mg (2 x 500 mg) PO Q8 #0 tabs 05/02/25 calcium carbonate 500 mg (2.5 x 200 mg calcium (500 mg)) PO TIDCM #0 tabs 05/02/25 furosemide 40 mg tablet (Lasix) 40 mg PO Q12H water pill 30 days #60 tabs 05/02/25 oxycodone 5 mg tablet 2.5 - 5 mg (0.5 - 1 x 5 mg) PO Q4H PRN PRN Pain Score 4-10 3 days #7 tabs 05/02/25 rivaroxaban 15 mg tablet (Xarelto) 15 mg PO 1700 30 days #0 tabs 05/02/25 sennosides 8.6 mg-docusate sodium 50 mg tablet (Stimulant Laxative Plus) 2 tab PO BID #0 tabs 05/02/25
--- NOTE | 2025-05-02 14:51 | CASEMGMT ---
Social Work Physician updated and pt is ready for discharge today.? SW met with pt and pt spouse; they are agreeable to discharge plan as stated above.? DCA and bedside nurse notified of discharge. DCA to complete all final arrangements and notifications. Disposition: [facility], skilled level of care [facility] [place]
--- NOTE | 2025-05-02 15:13 | CASEMGMT ---
Discharge Planning Discharge orders, signed med list & scripts, and transport time sent via [facility] to [place]. Physicians will transport pt by wheelchair at 6:30p. Nursing, SW, pt, and her updated. Keila Jameson DC Planning Asst.
[2025-05-02] MEDS: Insulin Glargine-YFGN 100 UNIT/ML Pen 10 UNIT SC (16:53)
[2025-05-02 17:30] VITALS: BP 137/65; PULSE 79; RESP 15; TEMP 36.7; O2SAT 96
--- NOTE | 2025-05-02 17:46 | NURSING ---
REPORT CALLED TO THE AVENUE
== END 2025-05-02 18:10 | disposition skilled nursing facility (03) | DRG 522 ==
LOC: ED 11:49 → MS3 12:10
PROVIDERS: Anesthesiology; Student in an Organized Health Care Education/Training Program; Admitting Provider Internal Medicine; Emergency Provider Emergency Medicine; PCP Family Medicine; Visit Provider Internal Medicine
PROC: 0SRR01A Replacement of Right Hip Joint, Femoral Surface with Metal Synthetic Substitute, Uncemented, Open Approach (ICD-10-PCS; CPT 27125; principal; 2025-05-01 09:55)
DX: S72.001A Fracture of unspecified part of neck of right femur, initial encounter for closed fracture (principal); I50.32 Chronic diastolic (congestive) heart failure; I48.19 Other persistent atrial fibrillation; N17.9 Acute kidney failure, unspecified; I49.5 Sick sinus syndrome; Z66 Do not resuscitate; Z51.5 Encounter for palliative care; E11.9 Type 2 diabetes mellitus without complications; I27.20 Pulmonary hypertension, unspecified; I11.0 Hypertensive heart disease with heart failure; E03.9 Hypothyroidism, unspecified; F32.A Depression, unspecified; S00.03XA Contusion of scalp, initial encounter; E78.5 Hyperlipidemia, unspecified; I25.10 Atherosclerotic heart disease of native coronary artery without angina pectoris; K21.9 Gastro-esophageal reflux disease without esophagitis; F41.9 Anxiety disorder, unspecified; W19.XXXA Unspecified fall, initial encounter; I25.2 Old myocardial infarction; Z79.84 Long term (current) use of oral hypoglycemic drugs; Z79.899 Other long term (current) drug therapy; Z79.890 Hormone replacement therapy; Z95.5 Presence of coronary angioplasty implant and graft; Z90.710 Acquired absence of both cervix and uterus; Z87.891 Personal history of nicotine dependence; Z79.01 Long term (current) use of anticoagulants; R53.81 Other malaise; Z79.891 Long term (current) use of opiate analgesic; Z95.0 Presence of cardiac pacemaker
CPT/HCPCS: 36415; 70450; 71045; 73502; 80048; 82962; 83036; 83735; 84443; 85025; 85027; 85610; 85730; 86850; 86900; 86901; 93005; 94668; 97162; 97166; 99285; C1776; A4216; J2405

== ENCOUNTER 2025-06-02 09:06 | Inpatient (IN) | payer MEDICARE, BC, SELFPAY ==
[2025-06-02] VITALS (29 sets, daily range): BP systolic 120–171; BP diastolic 62–94; PULSE 78–81; RESP 16–43; TEMP 36.6–37.1; O2SAT 85–95; BMI 29.6; BMI 26.9
--- NOTE | 2025-06-02 09:29 | EKG12_ITS ---
Test Reason : SOB Blood Pressure : */* mmHG Vent. Rate : 87 BPM Atrial Rate : 67 BPM P-R Int : * ms QRS Dur : 164 ms QT Int : 460 ms P-R-T Axes : 89 -75 93 degrees QTcB Int : 553 ms Ventricular-paced rhythm with occasional Premature ventricular complexes Abnormal ECG Confirmed by KYUNG MORRISON, DICKSON ([id number]), technical writer and editor MOISES LEW ([id number]) on 06/05/2025 1:21:28 PM Referred By: Confirmed By: DICKSON TRACEY MD
--- NOTE | 2025-06-02 09:36 | EX.ED.DYSGE1 ---
HPI History of Present Illness Chief Complaint: Shortness of Breath Informant: patient, family and EMS Narrative Narrative: 85-year-old female presenting to the emergency room with a chief complaint of not feeling well. Patient states that yesterday she felt generally unwell. She noted a lack of appetite generalized myalgias. She states that her house is very warm and she was sweaty because of that not because of fever. She denies any significant cough or rhinorrhea. She notes no urinary symptoms or diarrhea. No rashes. She states she has been trying to drink some Gatorade. She feels short of breath. She does not wear oxygen at home. She recently had 2 hip fractures. The patient has a history of atrial fibrillation and does have a cardiac pacemaker. She is on Xarelto. Patient underwent echocardiogram in January of this year shows a LVEF 65% and severe pulmonary hypertension at 76. [facility] Medical History Heart failure Overweight (BMI 25.0-29.9) Coronary artery disease Iron deficiency anemia History of non-ST elevation myocardial infarction (NSTEMI) (2013) Longstanding persistent atrial fibrillation Essential (primary) hypertension Anxiety Hypothyroidism Hyperlipidemia Secondary pulmonary arterial hypertension Atherosclerosis of coronary artery of [place] heart without angina pectoris Paroxysmal atrial fibrillation Paroxysmal atrial flutter Sick sinus syndrome Home Medications ?Medication ?Instructions ?Recorded ?Last Taken ?Type buspirone 15 mg tablet 15 mg PO BID ANXIETY 06/02/13 04/04/25 History omeprazole 40 mg capsule,delayed 40 mg PO DAILY ACID REFLUX 06/02/13 04/02/25 History release nitroglycerin 0.4 mg sublingual 0.4 mg sublingual Q5M PRN CHEST 04/21/15 Unknown History tablet PAIN amitriptyline 50 mg tablet 50 mg PO QHS DEPRESSION 02/17/23 04/02/25 History levothyroxine 100 mcg tablet 100 mcg PO DAILY THYROID 12/14/23 04/04/25 History (Synthroid) losartan 100 mg tablet 100 mg PO DAILY blood pressure #90 11/18/24 04/03/25 Rx tabs potassium chloride 20 mEq 40 meq (2 x 20 mEq) PO QDAY #90 11/21/24 04/02/25 Rx tablet,extended release(part/cryst) tabs metoprolol succinate 50 mg 50 mg PO DAILY heart/BP #90 tabs 11/23/24 04/04/25 Rx tablet,extended release 24 hr amlodipine 10 mg tablet 10 mg PO DAILY 02/08/25 04/02/25 History ferrous sulfate 325 mg (65 mg 65 mg PO DAILY 02/08/25 04/03/25 History iron) tablet (FeroSul) ascorbic acid (vitamin C) 500 mg 500 mg PO BID 04/03/25 04/03/25 History tablet (Vitamin C) empagliflozin 10 mg tablet 10 mg PO DAILY . 04/29/25 Unknown History (Jardiance) simvastatin 20 mg tablet 20 mg PO QHS cholesterol 04/29/25 Unknown History acetaminophen 500 mg tablet 1,000 mg (2 x 500 mg) PO Q8 #0 tabs 05/02/25 Unknown Rx furosemide 40 mg tablet (Lasix) 40 mg PO Q12H water pill 30 days 05/02/25 Unknown Rx #60 tabs glimepiride 4 mg tablet 2 mg PO DAILY 06/02/25 Unknown History ketotifen fumarate 0.025 % (0.035 1 drp EACH EYE BID 06/02/25 Unknown History %) eye drops ([place]) oxycodone-acetaminophen 5 mg-325 1 tab PO TID PRN PRN pain 06/02/25 Unknown History mg tablet rivaroxaban 15 mg tablet (Xarelto) 20 mg PO 1700 06/02/25 Unknown History Allergy/AdvReac Type Severity Reaction Status Date / Time poison fany extract (Poison Allergy Rash Verified 06/02/25 09:06 Fany Extract) Sulfa (Sulfonamide Allergy Hives Verified 06/02/25 09:06 Antibiotics) Family History Mother Cancer Father Cancer Brother CAD (coronary artery disease) Sister CAD (coronary artery disease) Surgical History Status post hemiarthroplasty of right hip S/P kyphoplasty History of tubal ligation History of appendectomy History of hysterectomy History of left heart catheterization (10/09/13) History of coronary artery stent placement (09/2010) Hx of atrioventricular node ablation (03/31/16) Presence of cardiac pacemaker (04/26/15) Social History household members: spouse Smoking Status: Former smoker how long ago did patient quit smokin's alcohol intake: never substance use type: does not use caffeine: Yes Type: coffee Number of servings: 3 ROS ROS ED Constitutional Constitutional ED: Reports chills and sweats; Denies fever(s) or weight loss Eyes Eyes: Denies change in vision or diplopia ENT ENT ED: Denies ear pain, rhinorrhea or sore throat Cardiovascular Cardiovascular: Denies chest pain, orthopnea, palpitations or racing heartbeat Respiratory/Chest Respiratory/Chest: Reports dyspnea and dyspnea on exertion; Denies cough or orthopnea Gastrointestinal Gastrointestinal: Reports other Details: Decreased appetite ; Denies abdominal pain, diarrhea, nausea or vomiting Genitourinary Genitourinary ED: Denies dysuria, hematuria or urinary frequency Musculoskeletal Musculoskeletal: Reports myalgias; Denies arthralgias, back pain or neck pain Integumentary Denies abscess or rash Neurologic Neurologic: Denies headache(s) or weakness Psychiatric Psychiatric: Denies anxiety, depression, suicidal ideation or suicidal thoughts Endocrine Endocrinology: Denies polydipsia, polyphagia or polyuria Allergic/Immunologic Allergic/Immunologic ED: Denies mouth swelling, tongue swelling or urticaria EXAM Physical Exam Narrative Exam Narrative: 85-year-old female sitting up in the bed. She appears slightly dyspneic but not in distress. Const Vital Signs: 06/02/25 09:06 06/02/25 09:25 06/02/25 09:25 Temperature 98.1 F 97.8 F Temperature Source Oral Oral Pulse Rate 81 80 Respiratory Rate 24 H 20 H Respiratory Effort Normal Respiratory Depth Normal Respiratory Pattern Normal Blood Pressure 157/71 H 145/71 H Blood Pressure Mean 99 95 Pulse Ox 86 93 Oxygen Delivery Method Room Air Nasal Cannula Nasal Cannula Oxygen Flow Rate (L/min) 2 2 06/02/25 09:29 06/02/25 09:41 06/02/25 09:41 Temperature Temperature Source Pulse Rate 80 Respiratory Rate 16 Respiratory Effort Respiratory Depth Respiratory Pattern Normal Blood Pressure Blood Pressure Mean Pulse Ox 92 93 Oxygen Delivery Method Nasal Cannula Nasal Cannula Oxygen Flow Rate (L/min) 2 2 06/02/25 10:44 06/02/25 11:45 06/02/25 11:48 Temperature 98.1 F Temperature Source Oral Pulse Rate 80 80 80 Respiratory Rate 22 H 22 H 25 H Respiratory Effort Respiratory Depth Respiratory Pattern Blood Pressure 120/88 H 150/62 H Blood Pressure Mean 98 91 Pulse Ox 93 90 92 Oxygen Delivery Method Nasal Cannula Nasal Cannula Oxygen Flow Rate (L/min) 1.5 1.5 06/02/25 12:00 06/02/25 12:15 06/02/25 12:39 Temperature Temperature Source Pulse Rate 80 80 80 Respiratory Rate 22 H 21 H Respiratory Effort Respiratory Depth Respiratory Pattern Blood Pressure Blood Pressure Mean Pulse Ox 92 95 92 Oxygen Delivery Method Oxygen Flow Rate (L/min) 06/02/25 12:45 06/02/25 13:00 06/02/25 13:12 Temperature Temperature Source Pulse Rate 80 80 80 Respiratory Rate 20 H 43 H Respiratory Effort Respiratory Depth Respiratory Pattern Blood Pressure 165/94 H Blood Pressure Mean 112 Pulse Ox 90 90 Oxygen Delivery Method Oxygen Flow Rate (L/min) 06/02/25 13:13 06/02/25 13:15 06/02/25 13:15 Temperature Temperature Source Pulse Rate 80 80 Respiratory Rate 24 H 23 H Respiratory Effort Respiratory Depth Respiratory Pattern Blood Pressure 165/94 H Blood Pressure Mean 117 Pulse Ox 94 85 Oxygen Delivery Method Room Air Room Air Oxygen Flow Rate (L/min) 0 06/02/25 13:26 06/02/25 13:30 06/02/25 13:45 Temperature Temperature Source Pulse Rate 80 80 Respiratory Rate 20 H 18 Respiratory Effort Respiratory Depth Respiratory Pattern Blood Pressure 171/75 H 167/75 H 168/82 H Blood Pressure Mean 104 103 108 Pulse Ox 92 94 Oxygen Delivery Method Oxygen Flow Rate (L/min) 06/02/25 14:05 06/02/25 14:15 Temperature Temperature Source Pulse Rate 80 Respiratory Rate 19 H Respiratory Effort Respiratory Depth Respiratory Pattern Blood Pressure Blood Pressure Mean Pulse Ox 93 92 Oxygen Delivery Method Oxygen Flow Rate (L/min) Positive well nourished and well developed General Appearance ED: well developed and NAD HEENT Reports normocephalic, head/scalp atraumatic and moist mucous membranes Eyes PERRL and EOMs intact bilaterally Neck no lymphadenopathy, supple and no JVD Resp Resp Narrative: Slight tachypnea Auscultation: rales and diminished lung sounds Cardio regular rate, regular rhythm and no murmurs GI normal to inspection, nondistended, normoactive bowel sounds and non-tender Palpation: soft Back/Spine no CVA tenderness and normal ROM Extremity normal to inspection General Extremety ED: Negative for edema General Extremity: Negative for edema Neuro oriented x3 and CN's II-XII intact bilaterally Sensorium / Orientation: alert Motor Exam: strength 5/5 throughout Psych mental status grossly normal Mood & Affect: Negative for depressed or tearful Skin no rashes or lesions noted and no wounds MDM MDM MDM Narrative Medical decision making narrative: Differential diagnosis includes but not limited congestive heart failure pneumonia bronchospasm bronchitis pleural effusion electrolyte abnormalities renal dysfunction anemia viral syndrome Patient's white count is 9.2 with a hemoglobin 11.5. INR is 3 PTT 49 troponin 35 and 33 BNP 4360 glucose 155 creatinine 0.74 urinalysis with no overt infection. My independent interpretation of the chest x-ray is vascular congestion/CHF. EKG is ventricularly paced. Patient received 60 mg of Lasix IV. She has had very good urine output. Initially the patient states she is feeling better. My point out to her that she still appears mildly dyspneic she states that she does not want to stay in the hospital because she does not want a go to a group home like she did with her hip fractures. Patient's pulse ox continues to be in the mid to high 80s while at rest. I offered to ambulate her to see how she feels but the patient states that she should be admitted to the hospital. I will speak with the hospitalist regarding admission for this History & Record Review Discussion w/independent historian: Patient and Family Additional record(s) reviewed:: Prior inpatient record, Prior ED visit and Prior labs Lab Data Attestation: I reviewed the patient's lab results. Labs: Laboratory Results - last 24 hr 06/02/25 06/02/25 06/02/25 09:20 11:30 11:38 WBC 9.2 RBC 3.77 L Hgb 11.5 L Hct 36.4 L MCV 96.6 MCH 30.5 MCHC 31.6 L RDW Std Deviation 53.5 H RDW Coeff of Jose Alberto 15.1 H Plt Count 347 MPV 9.5 Immature Gran % (Auto) 0.400 Neut % (Auto) 78.0 H Lymph % (Auto) 11.1 L [place] % (Auto) 9.7 Eos % (Auto) 0.4 Baso % (Auto) 0.4 Absolute Neuts (auto) 7.2 Absolute Lymphs (auto) 1.02 Nucleated RBC % 0 PT 31.7 H INR 3.0 APTT 49.0 H Sodium 135 Potassium 4.0 Chloride 101 Carbon Dioxide 22.8 Anion Gap 11 BUN 12 Creatinine 0.74 Estim Creat Clear Calc 54.90 Est GFR (MDRD) Non-Af 79 BUN/Creatinine Ratio 15.6 Glucose 155 H Calcium 9.5 Total Bilirubin 1.61 H Direct Bilirubin 0.32 H AST 31 ALT 21 Alkaline Phosphatase 255 H Troponin T High Sens 35 H D Troponin T Hi Sens 2 Hr 33 H NT pro BNP II 4360 H Total Protein 8.3 Albumin 3.5 Globulin 4.8 H Urine Color Yellow Urine Clarity Sl. Cloudy Urine pH 6.5 Ur Specific [place] 1.010 Urine Protein 30 H Urine Glucose (UA) 1000 H Urine Ketones Negative Urine Occult Blood 10 H Urine Nitrite Negative Urine Bilirubin Negative Urine Urobilinogen Normal Ur Leukocyte Esterase 500 H Urine RBC 0 SEEN Urine WBC 10-25 SEEN Ur Squamous Epith Cells 0-5 SEEN Urine Bacteria 0 SEEN Urine Mucus 0 SEEN Urine Yeast 1+ Radiography Diagnostic Testing: Clinical Impression(s) from Imaging Studies Chest X-Ray 06/02/25 09:58 IMPRESSION: Borderline cardiomegaly. Vascular congestion and CHF. Reading Location: [id number] EKG Initial EKG: Attestation: I personally reviewed and interpreted this EKG as follows: Comments: Ventricularly paced rhythm at a rate of 87 bpm Management Discussion w/another healthcare provider: Hospitalist (Dr. Elizabeth) Discharge Plan Disposition Disposition: Acute Care Hospital [facility] Discharge Date/Time: 06/02/25 15:16
[2025-06-02 09:42] LABS: Hematocrit 36.4 % (37-47); Hemoglobin 11.5 g/dL (12.0-15.0); Immature Granulocytes Count 0.040 X10^3/uL (0.0-0.0); Mean Corp Hgb Conc 31.6 g/dL (32-36); Mean Corpuscular Volume 96.6 fL (81-99); Mean Platelet Vol. 9.5 fl (6.2-12.0); NRBC Flagged by Analyzer 0 % (0-5); Platelet Count 347 K/mm3 (150-450); RBC Distribution Width CV 15.1 % (11.6-14.6); RBC Distribution Width SD 53.5 fl (35.1-43.9); Red Blood Count 3.77 M/mm3 (4.2-5.4); White Blood Count 9.2 K/mm3 (4.4-11.0)
[2025-06-02 09:51] LABS: Prothrombin Time (Protime)PT. 31.7 SECONDS (11.7-14.9)
[2025-06-02 09:52] LABS: Partial Thromboplast Time 49.0 Seconds (24.1-36.2)
--- NOTE | 2025-06-02 09:58 | RAD_ITS ---
PROCEDURE: CHEST 1 VIEW (PORTABLE) 06/02/2025 REASON FOR EXAM: DYSPNEA TECHNIQUE: Frontal view of the chest. COMPARISON: April 29, 2025 FINDINGS: Hardware: EKG electrodes are seen. Left-sided dual-chamber pacer mCi present. Heart: Mild cardiomegaly. Atherosclerotic calcification of the aortic arch. Lungs: Vascular congestion and mild degree of CHF. Bones: Degenerative changes are identified within the thoracic spine. RAD/Chest 1 View (Portable) IMPRESSION: Borderline cardiomegaly. Vascular congestion and CHF. Reading Location: [id number]
[2025-06-02 10:19] LABS: Pro- Brain NATRIURETIC PEPTIDE 4360 pg/mL (<=1800); Troponin T High Sensitivity 35 ng/L (<=14)
[2025-06-02 10:21] LABS: AST(SGOT) 31 U/L (<=31); Alanine Aminotransfer ALT/SGPT 21 U/L (<=34); Albumin, Serum 3.5 g/dL (3.4-4.8); Alkaline Phosphatase 255 U/L (35-104); Anion Gap 11 (5-15); BUN 12 mg/dL (4-19); BUN/Creat Ratio 15.6 RATIO (10-20); Bilirubin, Direct 0.32 mg/dL (0.00-0.30); Calcium,Total 9.5 mg/dL (7.6-11.0); Carbon Dioxide 22.8 mmol/L (21.0-32.0); Chloride 101 mmol/L (98-108); Estimated Creatinine Clearance 54.90 ml/min (50-250); Globulin 4.8 g/dL (2.2-4.2); Glucose 155 mg/dL (70-99); Potassium 4.0 mmol/L (3.3-5.1)
[2025-06-02 11:35] LABS: Mucous, Urine 0 SEEN /hpf (<or=2+); Red Blood Cells-Urine 0 SEEN /hpf (0-5)
[2025-06-02 11:36] LABS: Color, Urine Yellow (Yellow); Glucose, Dipstick 1000 mg/dl (Normal); Ketone-Dipstick Negative (Negative); Leukocyte Esterase-Dipstick 500 /ul (Negative); Nitrite-Dipstick Negative (Negative); Occult Blood-Urine 10 /ul (Negative); Protein-Dipstick 30 mg/dl (Negative); Specific Gravity, Urine 1.010 (1.002-1.030); Urine Bilirubin Dipstick Negative (Negative)
[2025-06-02 11:43] LABS: Squamous Epithelial Cells - UA 0-5 SEEN /hpf (5-10); Yeast-Urine 1+ /hpf (None Seen)
[2025-06-02 12:00] LABS: Troponin T High Sens 2 HR 33 ng/L (<=14)
--- NOTE | 2025-06-02 14:30 | PCM.HP.STD ---
HPI - General General Date of Admission: 06/02/25 Date of Service: 06/02/25 Chief Complaint: Shortness of breath and fatigue HPI Narrative ANTONIO GUPTA, is a 85 F who presented to [facility] ED on 06/02/2025 with shortness of breath and fatigue. Medical history significant for HFpEF, persistent A-fib s/p AV isael ablation and pacemaker placement, CAD with stenting, hypertension, hyperlipidemia, anxiety/depression, and type 2 diabetes mellitus. She was hospitalized here in late March for a left hip fracture after a fall at home. Had left hip replacement done and was discharged to SNF. She unfortunately had a fall at SNF in mid April with resultant right hip fracture, and her right hip was replaced on 05/01. She has now been home with her for the past week or two and states she has been doing fairly well with her rollator. However, over the last 2 to 3 days she has noticed worsening shortness of breath especially with exertion. She also reports decreased appetite from previous. Denies any lower extremity swelling. Denies any abdominal swelling. Denies any cough, congestion or other URI symptoms. In the ED she was hypoxic to the mid 80s on room air, improved to the low 90s on 2 L nasal cannula. Chest x-ray showed vascular congestion with CHF and borderline cardiomegaly. BNP 4360. She is on p.o. Lasix at home and states he has been taking as prescribed with last dose being this morning. She was given a dose of IV Lasix in the ED with good urine output, and hospitalist was then contacted for admission. I saw the patient bedside in the ED, was present. Patient was sitting back in bed mildly fatigued appearing but otherwise answering questions appropriately and in no acute distress. No other acute concerns currently. Will be admitted for further management. [facility] Medical History Heart failure Overweight (BMI 25.0-29.9) Coronary artery disease Iron deficiency anemia History of non-ST elevation myocardial infarction (NSTEMI) (2013) Longstanding persistent atrial fibrillation Essential (primary) hypertension Anxiety Hypothyroidism Hyperlipidemia Secondary pulmonary arterial hypertension Atherosclerosis of coronary artery of [place] heart without angina pectoris Paroxysmal atrial fibrillation Paroxysmal atrial flutter Sick sinus syndrome Home Medications ?Medication ?Instructions ?Recorded ?Last Taken ?Type buspirone 15 mg tablet 15 mg PO BID ANXIETY 06/02/13 04/04/25 History omeprazole 40 mg capsule,delayed 40 mg PO DAILY ACID REFLUX 06/02/13 04/02/25 History release nitroglycerin 0.4 mg sublingual 0.4 mg sublingual Q5M PRN CHEST 04/21/15 Unknown History tablet PAIN amitriptyline 50 mg tablet 50 mg PO QHS DEPRESSION 02/17/23 04/02/25 History levothyroxine 100 mcg tablet 100 mcg PO DAILY THYROID 12/14/23 04/04/25 History (Synthroid) losartan 100 mg tablet 100 mg PO DAILY blood pressure #90 11/18/24 04/03/25 Rx tabs potassium chloride 20 mEq 40 meq (2 x 20 mEq) PO QDAY #90 11/21/24 04/02/25 Rx tablet,extended release(part/cryst) tabs metoprolol succinate 50 mg 50 mg PO DAILY heart/BP #90 tabs 11/23/24 04/04/25 Rx tablet,extended release 24 hr amlodipine 10 mg tablet 10 mg PO DAILY 02/08/25 04/02/25 History ferrous sulfate 325 mg (65 mg 65 mg PO DAILY 02/08/25 04/03/25 History iron) tablet (FeroSul) ascorbic acid (vitamin C) 500 mg 500 mg PO BID 04/03/25 04/03/25 History tablet (Vitamin C) empagliflozin 10 mg tablet 10 mg PO DAILY . 04/29/25 Unknown History (Jardiance) simvastatin 20 mg tablet 20 mg PO QHS cholesterol 04/29/25 Unknown History acetaminophen 500 mg tablet 1,000 mg (2 x 500 mg) PO Q8 #0 tabs 05/02/25 Unknown Rx furosemide 40 mg tablet (Lasix) 40 mg PO Q12H water pill 30 days 05/02/25 Unknown Rx #60 tabs glimepiride 4 mg tablet 2 mg PO DAILY 06/02/25 Unknown History ketotifen fumarate 0.025 % (0.035 1 drp EACH EYE BID 06/02/25 Unknown History %) eye drops (Alaway) oxycodone-acetaminophen 5 mg-325 1 tab PO TID PRN PRN pain 06/02/25 Unknown History mg tablet rivaroxaban 15 mg tablet (Xarelto) 20 mg PO 1700 06/02/25 Unknown History Allergy/AdvReac Type Severity Reaction Status Date / Time poison fany extract (Poison Allergy Rash Verified 06/02/25 09:06 Fany Extract) Sulfa (Sulfonamide Allergy Hives Verified 06/02/25 09:06 Antibiotics) Family History Mother Cancer Father Cancer Brother CAD (coronary artery disease) Sister CAD (coronary artery disease) Surgical History Status post hemiarthroplasty of right hip S/P kyphoplasty History of tubal ligation History of appendectomy History of hysterectomy History of left heart catheterization (10/09/13) History of coronary artery stent placement (09/2010) Hx of atrioventricular node ablation (03/31/16) Presence of cardiac pacemaker (04/26/15) Social History household members: spouse Smoking Status: Former smoker how long ago did patient quit smokin's alcohol intake: never substance use type: does not use caffeine: Yes Type: coffee Number of servings: 3 ROS Constitutional Constitutional: Reports fatigue; Denies chills, fever(s) or weakness Eyes Eyes: Denies change in vision Cardiovascular Cardiovascular: Reports dyspnea on exertion; Denies chest pain, edema, lightheadedness, orthopnea or palpitations Respiratory/Chest Respiratory/Chest: Reports shortness of breath at rest; Denies cough, productive cough or wheezing Gastrointestinal Gastrointestinal: Denies abdominal pain Genitourinary Genitourinary: Denies dysuria Musculoskeletal Musculoskeletal: Denies arthralgias or myalgias Neurologic Neurologic: Denies dizziness, focal weakness or headache(s) Vital Signs Vital Signs Vital Signs: 06/02/25 09:06 06/02/25 09:25 06/02/25 09:25 Temperature 98.1 F 97.8 F Temperature Source Oral Oral Pulse Rate 81 80 Respiratory Rate 24 H 20 H Respiratory Effort Normal Respiratory Depth Normal Respiratory Pattern Normal Blood Pressure 157/71 H 145/71 H Blood Pressure Mean 99 95 Pulse Ox 86 93 Oxygen Delivery Method Room Air Nasal Cannula Nasal Cannula Oxygen Flow Rate (L/min) 2 2 06/02/25 09:29 06/02/25 09:41 06/02/25 09:41 Temperature Temperature Source Pulse Rate 80 Respiratory Rate 16 Respiratory Effort Respiratory Depth Respiratory Pattern Normal Blood Pressure Blood Pressure Mean Pulse Ox 92 93 Oxygen Delivery Method Nasal Cannula Nasal Cannula Oxygen Flow Rate (L/min) 2 2 06/02/25 10:44 06/02/25 11:45 06/02/25 11:48 Temperature 98.1 F Temperature Source Oral Pulse Rate 80 80 80 Respiratory Rate 22 H 22 H 25 H Respiratory Effort Respiratory Depth Respiratory Pattern Blood Pressure 120/88 H 150/62 H Blood Pressure Mean 98 91 Pulse Ox 93 90 92 Oxygen Delivery Method Nasal Cannula Nasal Cannula Oxygen Flow Rate (L/min) 1.5 1.5 06/02/25 12:00 06/02/25 12:15 06/02/25 12:39 Temperature Temperature Source Pulse Rate 80 80 80 Respiratory Rate 22 H 21 H Respiratory Effort Respiratory Depth Respiratory Pattern Blood Pressure Blood Pressure Mean Pulse Ox 92 95 92 Oxygen Delivery Method Oxygen Flow Rate (L/min) 06/02/25 12:45 06/02/25 13:00 06/02/25 13:12 Temperature Temperature Source Pulse Rate 80 80 80 Respiratory Rate 20 H 43 H Respiratory Effort Respiratory Depth Respiratory Pattern Blood Pressure 165/94 H Blood Pressure Mean 112 Pulse Ox 90 90 Oxygen Delivery Method Oxygen Flow Rate (L/min) 06/02/25 13:13 06/02/25 13:15 06/02/25 13:15 Temperature Temperature Source Pulse Rate 80 80 Respiratory Rate 24 H 23 H Respiratory Effort Respiratory Depth Respiratory Pattern Blood Pressure 165/94 H Blood Pressure Mean 117 Pulse Ox 94 85 Oxygen Delivery Method Room Air Room Air Oxygen Flow Rate (L/min) 0 06/02/25 13:26 06/02/25 13:30 06/02/25 13:45 Temperature Temperature Source Pulse Rate 80 80 Respiratory Rate 20 H 18 Respiratory Effort Respiratory Depth Respiratory Pattern Blood Pressure 171/75 H 167/75 H 168/82 H Blood Pressure Mean 104 103 108 Pulse Ox 92 94 Oxygen Delivery Method Oxygen Flow Rate (L/min) 06/02/25 14:05 Temperature Temperature Source Pulse Rate Respiratory Rate Respiratory Effort Respiratory Depth Respiratory Pattern Blood Pressure Blood Pressure Mean Pulse Ox 93 Oxygen Delivery Method Oxygen Flow Rate (L/min) Weight Weight: 83.3 kg Body Mass Index (BMI) 29.6 Physical Exam Const alert, oriented x3, no apparent distress and average body habitus Constitutional Narrative: Elderly female, mildly fatigued and anxious appearing, otherwise sitting back comfortably in bed, conversing normally, in no acute distress. General Appearance: cooperative and comfortable HEENT normocephalic, head/scalp atraumatic, hearing grossly normal bilaterally, nasal mucous membranes and turbinates normal and moist oral mucous membranes Eyes PERRL, EOMs intact bilaterally and conjunctivae normal Neck full ROM Chest inspection of chest normal Resp normal respiratory effort and no use of accessory muscles Resp Narrative: Breathing comfortably on 2 L nasal cannula at rest. Crackles noted in mid to lower lung zones bilaterally, otherwise good air movement throughout with no wheezing noted. Cardio regular rate, regular rhythm, no murmurs and peripheral pulses 2+ throughout GI normal to inspection, nondistended, normoactive bowel sounds, soft to palpation, non-tender and non-distended Back/Spine normal ROM Extremity normal to inspection, full ROM and no pedal edema Skin no rashes or lesions noted Neuro moves all extremities and no focal motor deficits Psych mental status grossly normal Mood & Affect: anxious Results Lab / Micro Data 06/02/25 09:20 06/02/25 09:20 Labs: Laboratory Results - last 24 hr 06/02/25 09:20: WBC 9.2, RBC 3.77 L, Hgb 11.5 L, Hct 36.4 L, MCV 96.6, MCH 30.5, MCHC 31.6 L, RDW Std Deviation 53.5 H, RDW Coeff of Jose Alberto 15.1 H, Plt Count 347, MPV 9.5, Immature Gran % (Auto) 0.400, Neut % (Auto) 78.0 H, Lymph % (Auto) 11.1 L, Clarke % (Auto) 9.7, Eos % (Auto) 0.4, Baso % (Auto) 0.4, Absolute Neuts (auto) 7.2, Absolute Lymphs (auto) 1.02, Nucleated RBC % 0, PT 31.7 H, INR 3.0, APTT 49.0 H, Sodium 135, Potassium 4.0, Chloride 101, Carbon Dioxide 22.8, Anion Gap 11, BUN 12, Creatinine 0.74, Estim Creat Clear Calc 54.90, Est GFR (MDRD) Non-Af 79, BUN/Creatinine Ratio 15.6, Glucose 155 H, Calcium 9.5, Total Bilirubin 1.61 H, Direct Bilirubin 0.32 H, AST 31, ALT 21, Alkaline Phosphatase 255 H, Troponin T High Sens 35 H D, NT pro BNP II 4360 H, Total Protein 8.3, Albumin 3.5, Globulin 4.8 H 06/02/25 11:30: Urine Color Yellow, Urine Clarity Sl. Cloudy, Urine pH 6.5, Ur Specific [place] 1.010, Urine Protein 30 H, Urine Glucose (UA) 1000 H, Urine Ketones Negative, Urine Occult Blood 10 H, Urine Nitrite Negative, Urine Bilirubin Negative, Urine Urobilinogen Normal, Ur Leukocyte Esterase 500 H, Urine RBC 0 SEEN, Urine WBC 10-25 SEEN, Ur Squamous Epith Cells 0-5 SEEN, Urine Bacteria 0 SEEN, Urine Mucus 0 SEEN, Urine Yeast 1+ 06/02/25 11:38: Troponin T Hi Sens 2 Hr 33 H Micro: Microbiology 06/02/25 09:20 Mucosa - Nose SARS-CoV-2, Influenza & RSV (PCR) - Final Imaging Radiology Impression Chest X-Ray 06/02/25 09:58 IMPRESSION: Borderline cardiomegaly. Vascular congestion and CHF. Reading Location: [id number] Assessment & Plan Assessment/Plan (1) Acute exacerbation of CHF (congestive heart failure): QUALIFIERS: Heart failure type: unspecified Qualified Code(s): I50.9 - Heart failure, unspecified (2) Hypoxia: PLAN: Plan Patient is an 85-year-old female who presented [facility] ED on 06/02/2025 with worsening shortness of breath with exertion and fatigue. 1. Acute CHF exacerbation with hypoxia, elevated troponins ? Admit under patient status to PCU. Not on home oxygen, was hypoxic to the mid 80s on room air at rest on admit. Chest x-ray showed vascular congestion with CHF and borderline cardiomegaly. BNP 4360. Troponins 35 > 33. EKG w/ paced rhythm, no ischemic changes. Presume troponins mildly elevated due to CHF exacerbation. Most recent echo on 02/08 showed EF 65%, normal LV size and function, mild global RV dysfunction with severe pulmonary hypertension, severely enlarged LA and moderate enlarged RA. However on chart review, patient was hospitalized here in 03/2024 for a CHF exacerbation with acute hypoxic respiratory failure and her echo then showed EF 45 to 50% with an akinetic apex. Will repeat limited echo to assess LV function. Will treat with IV Lasix 40 mg twice daily, monitor daily BMP and urine output. Patient had good urine output with dose of IV Lasix in the ED, suspect she will not need more than 1 to 2 days of IV diuresis to return to her baseline. Notably, she was discharged on 2 L with exertion after that hospitalization in 03/2024 but refused to wear it at home because it was uncomfortable and she sent back to the company. 2. History of CAD with stenting, A-fib s/p AV isael ablation and pacemaker placement, hypertension, hyperlipidemia ? Follows with [facility], last office visit on 02/21. History of stenting x 3 in 2010, and AV isael ablation with pacemaker placement in 2015. EKG with paced rhythm at heart rate 80 on admit. Hypertensive to the 150s to 160s systolic in the ED. Kidney function at baseline. Treating with IV Lasix as above. Otherwise can continue home Xarelto, statin, amlodipine, losartan and Toprol. 3. Elevated LFTs ? T. bili 1.61, alk phos 255 on admit. LFTs otherwise normal. No abdominal pain noted. Suspect due to mild degree of congestion in setting of CHF exacerbation above. Treatment as above. 4. Mild acute on chronic debility with recent hip fractures with hip replacements ? PT/OT/case management consulted. Patient with left hip fracture in March s/p left hip replacement. She then had a ground-level fall at SNF with right fracture and had right hip replacement on 05/01. Has been home from SNF now for about 1 to 2 weeks. Using rollator and doing fairly well with this per patient and . Has had more shortness of breath with exertion that has limited her activity over the past few days. Notably, she had a poor experience at SNF with her second stay and was strongly prefer to go home on this discharge. Appreciate therapy recommendations. Continue oxycodone acetaminophen 3 times daily as needed for pain control. 5. Type 2 diabetes mellitus ? Glucose 155 on admit. A1c 6.2% on 04/30. Will treat with medium dose sliding scale insulin with meals while inpatient, adjust as needed. Hold home glimepiride and Jardiance. Would recommend discontinuing glimepiride on discharge to avoid risk of hypoglycemia, given her A1c is well-controlled. 6. Anxiety/depression ? Anxious on admit due to being back in the hospital, but states her medications have typically kept her symptoms well-controlled. Continue home BuSpar and amitriptyline at night. 7. Hypothyroidism ? TSH mildly low at 0.24 on 05/01; notably was normal at 3.0 on 02/08. Will repeat TSH and free T4 at this time. Continue home Synthroid. 8. GERD ? Continue home PPI. 9. Mild chronic iron deficiency anemia ? Hemoglobin 11.5 on admit, baseline around 10-11. Continue home iron supplement. DVT prophylaxis: Not indicated, on Xarelto CODE STATUS: DNR-CCA, DNI Expected disposition: Home, 2 to 3 days Total clinical time spent by myself addressing the patient's medical issues, reviewing all the data, and collaborating with patient's care team: 82 minutes. Charges/Coding Visit Charges Inpatient E&M: 17235 Init Hosp L3
--- NOTE | 2025-06-02 14:54 | CM.ED ---
Social work SW recognized patient's admission to [facility] and patient's last discharge date was 05/02/25. SW entered patient's room, introducing self and role at [facility]. Patient's , Hardik, was bedside and patient confirmed there had been no changes from the last admission. Patient stated desire to return home if possible because I fell and broke my other hip when I was [facility]. Patient and patient's stated having no further needs at this point in time. Plan: admission to acute; RNCM/SW team to follow for discharge planning needs that may arise. Fanny Roman, SENIOR PRODUCT MARKETING MANAGER, CONTROL CLERK AUDITING
[2025-06-02] MEDS: MELATONIN 3 MG TABLET PO (20:27)
[2025-06-02] MEDS: 0.9% Saline Lock 10 ML Syringe IV (20:29)
[2025-06-03] VITALS (8 sets, daily range): BP systolic 135–148; BP diastolic 61–68; PULSE 80–81; RESP 14–18; TEMP 36.3–36.6; O2SAT 90–97
[2025-06-03 04:53] LABS: Hematocrit 35.2 % (37-47); Hemoglobin 11.1 g/dL (12.0-15.0); Mean Corp Hgb Conc 31.5 g/dL (32-36); Mean Corpuscular Volume 95.4 fL (81-99); Mean Platelet Vol. 9.8 fl (6.2-12.0); Platelet Count 305 K/mm3 (150-450); RBC Distribution Width CV 14.8 % (11.6-14.6); RBC Distribution Width SD 51.3 fl (35.1-43.9); Red Blood Count 3.69 M/mm3 (4.2-5.4); White Blood Count 5.7 K/mm3 (4.4-11.0)
[2025-06-03 05:17] LABS: Anion Gap 11 (5-15); BUN 11 mg/dL (4-19); BUN/Creat Ratio 14.6 RATIO (10-20); Calcium,Total 8.9 mg/dL (7.6-11.0); Carbon Dioxide 26.0 mmol/L (21.0-32.0); Chloride 100 mmol/L (98-108); Estimated Creatinine Clearance 56.12 ml/min (50-250); Glucose 115 mg/dL (70-99); Potassium 2.8 mmol/L (3.3-5.1)
[2025-06-03] MEDS: Potassium Chloride Oral Tablet 20 MEQ 40 MEQ PO ×2 (08:50→10:43)
[2025-06-03] MEDS: Metoprolol(XL)Succ 50 MG Tablet PO (08:52)
--- NOTE | 2025-06-03 10:05 | CASEMGMT ---
Social Work CM Assessment: Face to Face with patient and her for initial transition planning/care coordination assessment. SW introduced self and role at [facility], pt voices understanding and consents to assessment. Pt is A&O x3 and answers all questions appropriately at this time. Admitting Dx: CHF exacerbation w/hypoxia PCP: [facility] in [place] Specialists:Dr. Root, cardio; Dr. Baker, heme; Dr. Beltran, pain mgmt Preferred Pharmacy: [facility] Pres[facility] Benefit: yes LNOK: Hardik Cummingsgris, ; Nitin Young, dtr Living Arrangements: Pt lives with and daughter in a two story home with first floor set up and two small steps to enter the house. helps with the patient ADL's and the daughter helps if needed. Transportation: [employer]. DME:[employer], lift chair, toilet riser, cane, shower chair, rollator, WC HHC/SNF: Pt has had [facility] HHC in the past and been to [facility]. Patient is open to HH. She does not want to DC to a SNF. Patient lives with and daughter in a two story home with first floor set up and two small steps to enter the house. helps with the patient ADL's and the daughter helps if needed. The still drives. Pt Goal: Patient wants to DC home and is open to HH referral. Patient does not want to DC to a SNF. THANH Berrios
--- NOTE | 2025-06-03 10:14 | CASEMGMT ---
Social Work A list of?HH providers including quality and resource use data and consistent with the patient's preferred geographic region, medical needs, and insurance network was created in [employer] Guide.?This list was provided to the patient and her . The patient first choice is [facility] and [facility] HH is the second choice. Patient is DC home with oxygen and chose [facility] as her provider. THANH Galdamez
[2025-06-03] MEDS: FLU VACCINE HIGH DOSE 25-26(65YR UP) 180 MCG/0.5 ML SYRINGE IM (10:55)
[2025-06-03 14:04] LABS: Anion Gap 10 (5-15); BUN 11 mg/dL (4-19); BUN/Creat Ratio 12.5 RATIO (10-20); Calcium,Total 9.7 mg/dL (7.6-11.0); Carbon Dioxide 28.1 mmol/L (21.0-32.0); Chloride 98 mmol/L (98-108); Estimated Creatinine Clearance 51.01 ml/min (50-250); Glucose 122 mg/dL (70-99); Potassium 3.8 mmol/L (3.3-5.1)
--- NOTE | 2025-06-03 15:24 | DCINST_ITS ---
Discharge Instructions DC O2, CPAP, BIPAP needs Home O2 Discharge instructions: No Dressing / Incision Discharge Activity: Return to Normal Activity Weight Bearing Status: Full weight bearing Follow Up Care Test Results: Test results from this visit will be discussed in further detail at your follow- up appointment, if applicable. Discharge Plan Admission Admit Date/Time: 06/02/25 14:30 Primary Reason for Your Visit: Congestive heart failure, hypoxia, pulmonary hypertension Attending Provider: Matt Funk Primary Care Provider: Matt Rocha Consulting Providers: Juice Elizabeth Discharge Orders/Prescriptions Prescriptions: New furosemide [Lasix] 40 mg tablet 60 mg PO BID Qty: 90 0RF Continued amitriptyline 50 mg tablet 50 mg PO QHS omeprazole 40 MG capsule 40 mg PO DAILY buspirone 15 MG tablet 15 mg PO BID nitroglycerin 0.4 MG tablet 0.4 mg SUBLINGUAL Q5M PRN (Reason: CHEST PAIN ) ascorbic acid (vitamin C) [Vitamin C] 500 mg tablet 500 mg PO BID oxycodone-acetaminophen 5-325 mg tablet 1 tab PO TID PRN PRN (Reason: pain) glimepiride 4 mg tablet 2 mg PO DAILY ketotifen fumarate [Alaway] 0.025 % (0.035 %) drops 1 drp EACH EYE BID Rx Instructions: administer at least 8 hours apart Xarelto 15 mg Tablet 20 mg PO 1700 levothyroxine [Synthroid] 100 mcg tablet 100 mcg PO DAILY amlodipine 10 mg tablet 10 mg PO DAILY Patient Comments: PT THINKS SHE IS STILL TAKING BUT HAS NOT FILLED IN SEVERAL MONTHS ferrous sulfate [FeroSul] 325 mg (65 mg iron) tablet 65 mg PO DAILY simvastatin 20 mg tablet 20 mg PO QHS Jardiance 10 mg tablet 10 mg PO DAILY acetaminophen 500 mg Tablet 1,000 mg PO Q8 Qty: 0 0RF Rx Instructions: Every 8 hourly for 5 more days and then every 8 hourly as needed for severe pain losartan 100 mg tablet 100 mg PO DAILY Qty: 90 3RF potassium chloride 20 mEq tablet,ER particles/crystals 40 meq PO QDAY Qty: 90 3RF metoprolol succinate 50 mg tablet extended release 24 hr 50 mg PO DAILY Qty: 90 3RF Discontinued furosemide [Lasix] 40 mg tablet 40 mg PO Q12H 30 Days Qty: 60 0RF Referrals / Follow Up: Matt Rocha MD [Primary Care Provider, Family Practice] - Within 2 Weeks Disposition Disposition (needs filled in before D/C Order can be placed): Home, Self Care
--- NOTE | 2025-06-03 15:37 | PCM.DC.SUM ---
Providers Date of Admission: 06/02/25 Date of Discharge: 06/03/25 Primary Care Physician: Dr. Matt Rocha MD Reason For Visit: CHF EXACERBATION W/ HYPOXIA Diagnosis Discharge Diagnosis (1) Acute exacerbation of CHF (congestive heart failure): Status: Resolved Code(s): I50.9 - Heart failure, unspecified Qualifiers: Heart failure type: unspecified Qualified Code(s): I50.9 - Heart failure, unspecified (2) Hypoxia: Status: Acute Code(s): R09.02 - Hypoxemia Plan 1. Acute on chronic congestive heart failure with preserved ejection fraction #2 severe pulmonary hypertension #3 moderately severe tricuspid valve insufficiency #4 hypoxia secondary to #1 #5 chronic atrial fibrillation #6 chronic use of anticoagulant #7 essential hypertension #8 hypothyroidism Medications at Discharge Home Medications buspirone 15 mg tablet 15 mg PO BID ANXIETY 06/02/13 omeprazole 40 mg capsule,delayed release 40 mg PO DAILY ACID REFLUX 06/02/13 nitroglycerin 0.4 mg sublingual tablet 0.4 mg sublingual Q5M PRN CHEST PAIN 04/21/15 amitriptyline 50 mg tablet 50 mg PO QHS DEPRESSION 02/17/23 levothyroxine 100 mcg tablet (Synthroid) 100 mcg PO DAILY THYROID 12/14/23 losartan 100 mg tablet 100 mg PO DAILY blood pressure #90 tabs 11/18/24 potassium chloride 20 mEq tablet,extended release(part/cryst) 40 meq (2 x 20 mEq) PO QDAY #90 tabs 11/21/24 metoprolol succinate 50 mg tablet,extended release 24 hr 50 mg PO DAILY heart/BP #90 tabs 11/23/24 amlodipine 10 mg tablet 10 mg PO DAILY 02/08/25 ferrous sulfate 325 mg (65 mg iron) tablet (FeroSul) 65 mg PO DAILY 02/08/25 ascorbic acid (vitamin C) 500 mg tablet (Vitamin C) 500 mg PO BID 04/03/25 empagliflozin 10 mg tablet (Jardiance) 10 mg PO DAILY . 04/29/25 simvastatin 20 mg tablet 20 mg PO QHS cholesterol 04/29/25 acetaminophen 500 mg tablet 1,000 mg (2 x 500 mg) PO Q8 #0 tabs 05/02/25 glimepiride 4 mg tablet 2 mg PO DAILY 06/02/25 ketotifen fumarate 0.025 % (0.035 %) eye drops (Alaway) 1 drp EACH EYE BID 06/02/25 oxycodone-acetaminophen 5 mg-325 mg tablet 1 tab PO TID PRN PRN pain 06/02/25 rivaroxaban 15 mg tablet (Xarelto) 20 mg PO 1700 06/02/25 furosemide 40 mg tablet (Lasix) 60 mg (1.5 x 40 mg) PO BID #90 tabs 06/03/25 Hospital Course Operations None Procedures None Summary of Care Provided Minutes Spent on Discharge: 31 Hospital Course: This 85-year-old white female was seen in the emergency room at [facility] with complaints of shortness of breath and fatigue. She had noticed worsening shortness of breath 2 to 3 days prior to her emergency room visit especially with exertion. Workup in the emergency room showed the patient to be hypoxic in the mid 80s on room air, her pulse ox was in the low 90s on 2 L nasal cannula oxygen. Chest x-ray showed vascular congestion and CHF and borderline cardiomegaly. Beta natruretic peptide was elevated at 4360. Patient was admitted to PCU and placed on IV diuresis, she was able to be weaned off oxygen and did not require oxygen at rest or on ambulation at the time of discharge from the hospital. On 06/03/2025, patient was seen and examined: On examination she appeared in good health and spirits, she does not appear to be in any distress. Vital signs as documented. Skin warm and dry and without overt rashes. Neck without JVD, thyroid appears normal, trachea is midline, neck is supple. Lungs clear, normal air movement was noted. Heart exam notable for regular rhythm, normal sounds and absence of murmurs, rubs or gallops. Abdomen unremarkable and without evidence of organomegaly, masses, or abdominal aortic enlargement, bowel sounds are present in all 4 quadrants, no abdominal tenderness was noted. Extremities nonedematous, no cyanosis was noted, no clubbing was noted. Neuro: Cranial nerves II through XII are grossly intact, no focal motor deficits were noted, sensation to light touch and pinprick is intact, motor exam 5/5 throughout. Psych: Patient is alert and oriented x3, she does not appear anxious or depressed, she does not appear agitated. Patient appears stable for discharge home on 06/03/2025. Weight / BMI Weight Weight: 80.2 kg Body Mass Index (BMI) 26.9 ABG / Lab / Microbiology Data 06/03/25 04:09 06/03/25 13:08 Laboratory: Laboratory Results - last 24 hr 06/02/25 11:38: TSH 1.380, Free T4 1.30 06/02/25 16:21: POC Glucose 142 H 06/02/25 20:16: POC Glucose 130 H 06/03/25 04:09: WBC 5.7, RBC 3.69 L, Hgb 11.1 L, Hct 35.2 L, MCV 95.4, MCH 30.1, MCHC 31.5 L, RDW Std Deviation 51.3 H, RDW Coeff of Jose Alberto 14.8 H, Plt Count 305, MPV 9.8, Sodium 137, Potassium 2.8 L, Chloride 100, Carbon Dioxide 26.0, Anion Gap 11, BUN 11, Creatinine 0.74, Estim Creat Clear Calc 56.12, Est GFR (MDRD) Non-Af 79, BUN/Creatinine Ratio 14.6, Glucose 115 H, Calcium 8.9 06/03/25 06:53: POC Glucose 143 H 06/03/25 10:53: POC Glucose 193 H 06/03/25 13:08: Sodium 136, Potassium 3.8, Chloride 98, Carbon Dioxide 28.1, Anion Gap 10, BUN 11, Creatinine 0.88, Estim Creat Clear Calc 51.01, Est GFR (MDRD) Non-Af 64, BUN/Creatinine Ratio 12.5, Glucose 122 H, Calcium 9.7 Microbiology: Microbiology 06/02/25 09:20 Mucosa - Nose SARS-CoV-2, Influenza & RSV (PCR) - Final D/C Instructions Weight Bearing Status: Full weight bearing DC O2, CPAP, BIPAP Needs Home O2 Discharge instructions: No Meaningful Use Info Meaningful Use Meaningful Use Diagnoses (Choose all that apply): CHF CHF LISANDRA/ARB ordered at discharge?: Yes Documented LVEF (%): 65 Discharge Plan Admission Admit Date/Time: 06/02/25 14:30 Primary Reason for Your Visit: Congestive heart failure, hypoxia, pulmonary hypertension Attending Provider: Matt Funk Primary Care Provider: Matt Rocha Consulting Providers: Juice Elizabeth Discharge Orders/Prescriptions Prescriptions: New furosemide [Lasix] 40 mg tablet 60 mg PO BID Qty: 90 0RF Continued amitriptyline 50 mg tablet 50 mg PO QHS omeprazole 40 MG capsule 40 mg PO DAILY buspirone 15 MG tablet 15 mg PO BID nitroglycerin 0.4 MG tablet 0.4 mg SUBLINGUAL Q5M PRN (Reason: CHEST PAIN ) ascorbic acid (vitamin C) [Vitamin C] 500 mg tablet 500 mg PO BID oxycodone-acetaminophen 5-325 mg tablet 1 tab PO TID PRN PRN (Reason: pain) glimepiride 4 mg tablet 2 mg PO DAILY ketotifen fumarate [Alaway] 0.025 % (0.035 %) drops 1 drp EACH EYE BID Rx Instructions: administer at least 8 hours apart Xarelto 15 mg Tablet 20 mg PO 1700 levothyroxine [Synthroid] 100 mcg tablet 100 mcg PO DAILY amlodipine 10 mg tablet 10 mg PO DAILY Patient Comments: PT THINKS SHE IS STILL TAKING BUT HAS NOT FILLED IN SEVERAL MONTHS ferrous sulfate [FeroSul] 325 mg (65 mg iron) tablet 65 mg PO DAILY simvastatin 20 mg tablet 20 mg PO QHS Jardiance 10 mg tablet 10 mg PO DAILY acetaminophen 500 mg Tablet 1,000 mg PO Q8 Qty: 0 0RF Rx Instructions: Every 8 hourly for 5 more days and then every 8 hourly as needed for severe pain losartan 100 mg tablet 100 mg PO DAILY Qty: 90 3RF potassium chloride 20 mEq tablet,ER particles/crystals 40 meq PO QDAY Qty: 90 3RF metoprolol succinate 50 mg tablet extended release 24 hr 50 mg PO DAILY Qty: 90 3RF Discontinued furosemide [Lasix] 40 mg tablet 40 mg PO Q12H 30 Days Qty: 60 0RF Referrals / Follow Up: Matt Rocha MD [Primary Care Provider, Family Practice] - Within 2 Weeks Disposition Disposition (needs filled in before D/C Order can be placed): Home, Self Care Charges/Coding Visit Charges Inpatient E&M: 35607 Disch Hosp >30min
== END 2025-06-03 16:47 | disposition home health service (06) | DRG 291 ==
LOC: ED 14:58 → PCU 15:09
PROVIDERS: Admitting Provider Hospitalist; Emergency Provider Emergency Medicine; PCP Family Medicine; Visit Provider Internal Medicine
DX: I11.0 Hypertensive heart disease with heart failure (principal); I50.33 Acute on chronic diastolic (congestive) heart failure; I48.20 Chronic atrial fibrillation, unspecified; I27.20 Pulmonary hypertension, unspecified; E11.9 Type 2 diabetes mellitus without complications; D50.9 Iron deficiency anemia, unspecified; E03.9 Hypothyroidism, unspecified; Z66 Do not resuscitate; Z79.01 Long term (current) use of anticoagulants; I07.1 Rheumatic tricuspid insufficiency; E78.5 Hyperlipidemia, unspecified; K21.9 Gastro-esophageal reflux disease without esophagitis; I25.10 Atherosclerotic heart disease of native coronary artery without angina pectoris; I25.2 Old myocardial infarction; F41.8 Other specified anxiety disorders; Z79.84 Long term (current) use of oral hypoglycemic drugs; Z95.5 Presence of coronary angioplasty implant and graft; Z87.891 Personal history of nicotine dependence; Z90.710 Acquired absence of both cervix and uterus; Z23 Encounter for immunization; Z79.899 Other long term (current) drug therapy; Z79.890 Hormone replacement therapy; Z98.51 Tubal ligation status; Z90.49 Acquired absence of other specified parts of digestive tract; Z95.0 Presence of cardiac pacemaker; Z96.641 Presence of right artificial hip joint; R09.02 Hypoxemia; R79.89 Other specified abnormal findings of blood chemistry; R53.81 Other malaise
CPT/HCPCS: 36415; 71045; 80048; 80076; 81001; 82962; 83880; 84439; 84443; 84484; 85025; 85027; 85610; 85730; 87631; 93005; 94640; 94668; 97162; 97166; 97802; 99285; A4216; J1938